=== PATIENT | female | born 1960 | race Caucasian/White ===

== ENCOUNTER 2022-05-01 13:35 | Outpatient (REF) | payer MEDICARE, MEDICAID, SELFPAY ==
[2022-05-01 14:12] LABS: Basophils Percent Auto 0.5 % (0.0-3.0); Eosinophils Percent Auto 1.2 % (0.0-7.0); Hematocrit 33.8 % (33.0-51.0); Hemoglobin* 10.6 gm/dL (12.0-16.0); Immature Granulocytes Abs Auto 0.04 K/uL (0.00-0.30); Lymphocytes Percent Auto 30.3 % (20-44); Mean Corpuscular HGB Conc 31 gm/dL (32-36); Mean Corpuscular Hemoglobin 30 pg (26-34); Mean Corpuscular Volume 96 fL (80-100); Neutrophils Percent Auto 58.1 % (42.0-72.0); Platelet Count* 194 K/uL (140-440); RDW Coefficient of Variation % 15.8 % (11.5-15.5); Red Blood Count 3.54 m/uL (4.00-5.20); White Blood Count* 4.33 K/uL (4.50-11.00)
[2022-05-01 14:16] LABS: Slide Review Reflex No
[2022-05-01 14:57] LABS: Potassium* 3.5 mmol/L (3.6-5.1)
[2022-05-01 14:59] LABS: Creatinine* 1.7 mg/dL (0.5-1.5); Estimated Glomerular Filt Rate 34 ml/min
[2022-05-01 15:00] LABS: Glucose* 157 mg/dL (60-115); Magnesium* 1.3 mg/dL (1.5-2.6); Phosphorus* 2.2 mg/dL (2.5-4.5)
== END 2022-05-01 13:36 | disposition home or self-care (01) ==
LOC: NPINS 13:35
PROVIDERS: PCP Physician Assistant Medical; Visit Provider Internal Medicine Nephrology
DX: I12.0 Hypertensive chronic kidney disease with stage 5 chronic kidney disease or end stage renal disease (principal); N18.5 Chronic kidney disease, stage 5; Z94.0 Kidney transplant status; Z13.1 Encounter for screening for diabetes mellitus
CPT/HCPCS: 80197; 82565; 82947; 83735; 84100; 84132; 85025

== ENCOUNTER 2022-05-03 21:40 | Outpatient (REF) | payer MEDICARE, MEDICAID, SELFPAY ==
[2022-05-03 22:18] LABS: Appearance Urine Clear (Clear); Bilirubin Urine Negative (Negative); Blood Urine 2+ (Negative); Color Urine Yellow (Yellow); Glucose Urine 3+ (Negative); Ketones Urine Negative (Negative); Leukocyte Esterase Urine Negative (Negative); Nitrite Urine Negative (Negative); Protein Urine 1+ (Negative); Urobilinogen Urine 0.2 (0.2-1.0)
[2022-05-03 22:41] LABS: Bacteria Urine Few; RBC Urine 0-2 (0-2); Squamous Epithelial Cell Urine Few (None-Few)
== END 2022-05-03 21:41 | disposition home or self-care (01) ==
LOC: NPINS 21:40
PROVIDERS: PCP Physician Assistant Medical
DX: M25.562 Pain in left knee (principal); M17.12 Unilateral primary osteoarthritis, left knee; R30.0 Dysuria; I10 Essential (primary) hypertension
CPT/HCPCS: 81003; 81015; 87086

== ENCOUNTER 2022-05-15 14:23 | Outpatient (REF) | payer MEDICARE, MEDICAID, SELFPAY ==
[2022-05-15 15:15] LABS: Basophils Absolute Auto 0.05 K/uL (0.00-0.30); Basophils Percent Auto 0.7 % (0.0-3.0); Eosinophils Absolute Auto 0.04 K/uL (0.00-0.50); Eosinophils Percent Auto 0.6 % (0.0-7.0); Hematocrit 34.5 % (33.0-51.0); Hemoglobin* 10.5 gm/dL (12.0-16.0); Immature Granulocytes Abs Auto 0.14 K/uL (0.00-0.30); Lymphocytes Percent Auto 17.1 % (20-44); Mean Corpuscular HGB Conc 30 gm/dL (32-36); Mean Corpuscular Hemoglobin 30 pg (26-34); Mean Corpuscular Volume 99 fL (80-100); Monocytes Percent Auto 9.5 % (0.0-11.0); Neutrophils Absolute Auto 5.02 K/uL (1.7-7.0); Neutrophils Percent Auto 70.1 % (42.0-72.0); Platelet Count* 120 K/uL (140-440); RDW Coefficient of Variation % 16.5 % (11.5-15.5); White Blood Count* 7.15 K/uL (4.50-11.00)
[2022-05-15 15:42] LABS: Potassium* 4.1 mmol/L (3.6-5.1); Slide Review Reflex No
[2022-05-15 15:45] LABS: Creatinine* 1.9 mg/dL (0.5-1.5); Estimated Glomerular Filt Rate 29 ml/min
[2022-05-15 15:46] LABS: Glucose* 146 mg/dL (60-115); Magnesium* 1.7 mg/dL (1.5-2.6); Phosphorus* 3.6 mg/dL (2.5-4.5)
== END 2022-05-15 14:24 | disposition home or self-care (01) ==
LOC: NPINS 14:23
PROVIDERS: PCP Physician Assistant Medical; Visit Provider Internal Medicine Nephrology
DX: Z94.0 Kidney transplant status (principal); R35.0 Frequency of micturition; I49.9 Cardiac arrhythmia, unspecified; R30.0 Dysuria; Z13.1 Encounter for screening for diabetes mellitus
CPT/HCPCS: 82565; 82947; 83735; 84100; 84132; 85025

== ENCOUNTER 2022-05-25 12:11 | Emergency (ER) | payer MEDICARE, MEDICAID, SELFPAY ==
[2022-05-25 12:25] VITALS: BP 140/75; PULSE 97; RESP 20; TEMP 36.4; O2SAT 97; BMI 35.1
--- NOTE | 2022-05-25 12:45 | CRLHL7_ITS ---
For Patients: As a result of the Century Cures Act, medical imaging exams and procedure reports are released immediately into your electronic medical record. You may view this report before your referring provider. If you have questions, please contact your health care provider. INDICATION: LLE SWELLING TECHNIQUE: Ultrasound venous duplex left lower extremity. COMPARISON: None. FINDINGS: The left common femoral, superficial femoral, deep femoral, popliteal, posterior tibial, and greater saphenous veins are fully compressible normal waveforms. The contralateral right common femoral vein is also compressible with normal waveform. No masses evident. IMPRESSION: Normal ultrasound of the left lower extremity veins. Dictated by: Geraldo Hernandez MD @ 05/25/2022 13:22:39 (Electronically Signed)
--- NOTE | 2022-05-25 12:45 | ED.GENADULT ---
HPI - General Adult General Chief complaint: Lower Extremity Swelling Stated complaint: 7 weeks post kidney transplant, left leg swelling Time Seen by Provider: 05/25/22 12:21 History of Present Illness HPI narrative: This 61-year-old female comes in with swelling of her left lower extremity. She had a kidney transplant 7 weeks ago. The new kidney is placed in her left abdomen. She states that she had bilateral lower extremity swelling after the transplant and was on diuretics temporarily to correct that problem. She now has mild pitting edema in the right lower extremity with significantly more swelling of the left lower extremity. She does not report any pain or injury event. She contacted her transplant center and was encouraged to come here to rule out a blood clot in the left lower extremity. She arrives with normal vital signs and does not have any shortness of breath or chest pain. Related Data Home Medications Medication Instructions Recorded Confirmed acyclovir 5 % topical ointment 1 applic topical 6XD 04/28/22 04/28/22 gabapentin 100 mg capsule 100 mg PO BID 04/28/22 04/28/22 tacrolimus 1 mg capsule, 2 mg PO Q12H 04/28/22 04/28/22 immediate-release acetaminophen 325 mg tablet 650 mg PO Q6H PRN 05/03/22 05/04/22 hydrocortisone 2.5 % topical cream 1 applic topical QDAY PRN 05/03/22 05/04/22 magnesium oxide 800 mg PO QDAY 05/03/22 05/04/22 multivitamin 1 tab PO QDAY 05/03/22 05/04/22 mycophenolate mofetil 250 mg 750 mg PO Q12H 05/03/22 05/04/22 capsule nebivolol 5 mg tablet 5 mg PO QDAY 05/03/22 05/04/22 pantoprazole 40 mg tablet,delayed 40 mg PO QDAY 05/03/22 05/04/22 release prednisone 5 mg tablet mg PO DAILY 05/03/22 05/04/22 rosuvastatin 5 mg tablet 5 mg PO QDAY 05/03/22 05/04/22 sennosides 8.6 mg-docusate sodium 1 tab-cap PO BID 05/03/22 05/04/22 50 mg tablet sertraline 25 mg tablet 25 mg PO DAILY 05/03/22 05/04/22 sulfamethoxazole 400 1 tab PO 3XW 05/03/22 05/04/22 mg-trimethoprim 80 mg tablet valganciclovir 450 mg tablet 900 mg PO 3XW 05/03/22 05/04/22 Previous Rx's Medication Instructions Recorded furosemide 40 mg tablet 40 mg PO BID #60 tabs 05/25/22 Allergies Allergy/AdvReac Type Severity Reaction Status Date / Time epoetin natalia Allergy Mild Vomiting Verified 05/04/22 09:20 latex Allergy Mild Verified 05/04/22 09:20 pain med Allergy Unknown Uncoded 05/04/22 09:20 Review of Systems Status of ROS: Reports: 10 or more systems reviewed and unremarkable except as noted in History and below Narrative: Constitutional: No fevers, no weight gain or loss. Eyes: No discharge. No vision changes. HENT: No congestion, no sore throat, no ear pain. Cardiovascular: No chest pain, no palpitations. Respiratory: No shortness of breath, no wheezes, no cough. Gastrointestinal: No abdominal pain, no vomiting, no diarrhea. Genitourinary: No dysuria, no hematuria. Musculoskeletal: Normal range of motion. Swelling in the left lower extremity. Skin: No rashes, no pruritis. Neurological: No dizziness, weakness, sensory change, speech change. Endo/Heme/Allergies: No bruising or bleeding. No polydipsia. Pysch: no suicidality, no anxiety, no insomnia. All other systems reviewed and are negative. 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 Pain of foot Surgical History H/O hernia repair H/O total hysterectomy History of hysterectomy for benign disease (2001) History of kidney transplant (2007) Family History Sister COPD (chronic obstructive pulmonary disease) Social History Narrative: does not drink, does not exercise, tobacco use Smoking Status: Former smoker What tobacco products do you use: cigarettes Smoking quit date/years: >15 years ago Do you use any of these nicotine containing products: None Second hand tobacco smoke exposure: No How often do you have a drink containing alcohol: never How often do you have six or more drinks on one occasion: Never AUDIT-C Alcohol total score: 0 Non-prescribed substance use: denies use Exam Narrative: Exam Narrative: Constitutional: Well-developed, well-nourished, no acute distress. HEENT: Normocephalic, atraumatic. Neck: Normal range of motion. Nontender. Supple. Heart: Regular. No murmurs. Normal rate. Intact distal pulses. Lungs: Clear to auscultation. No chest discomfort. No wheezes, rhonchi, or rales. Abdomen: Normal bowel sounds. Nontender. No rebound tenderness. Genitalia: Deferred. Back: No midline tenderness. Normal range of motion. Extremities: Normal range of motion. No injury. Bilateral lower extremity edema, left significantly greater than right. Skin: Intact. No rash. Warm. No erythema or pallor. Neurologic: No altered sensation. No weakness. Alert and oriented. Psychiatric: No suicidality. No anxiety or depression. No insomnia. Nursing notes and vitals signs are reviewed. Const: Vital Signs, click to edit/add: Vital Signs - 24 hr 05/25/22 12:25 Temperature 97.6 F Pulse Rate [Right Pulse Oximeter] 97 Respiratory Rate 20 Blood Pressure [Ri ght Upper Arm] 140/75 H Pulse Oximetry 97 Oxygen Delivery Me thod Room Air Course Vital Signs Vital signs: Initial Vital Signs Temperature 97.6 F 05/25/22 12:25 Temperature Source Temporal Artery Scan 05/25/22 12:25 Pulse Rate 97 05/25/22 12:25 Respiratory Rate 20 05/25/22 12:25 Blood Pressure 140/75 H 05/25/22 12:25 Blood Pressure Mean 96 05/25/22 12:25 Blood Pressure Position Semi-Fowlers 05/25/22 12:25 Pulse Oximetry 97 05/25/22 12:25 Oxygen Delivery Method 05/25/22 12:25 Vital Signs Temperature 97.6 F 05/25/22 12:25 Pulse Rate 97 05/25/22 12:25 Respiratory Rate 20 05/25/22 12:25 Blood Pressure 140/75 H 05/25/22 12:25 Pulse Oximetry 97 05/25/22 12:25 Oxygen Delivery Method 05/25/22 12:25 Temperature 97.6 F 05/25/22 12:25 Pulse Rate 97 05/25/22 12:25 Respiratory Rate 20 05/25/22 12:25 Blood Pressure 140/75 H 05/25/22 12:25 Pulse Oximetry 97 05/25/22 12:25 Oxygen Delivery Method 05/25/22 12:25 Medical Decision Making MDM Narrative Medical decision making narrative: This patient comes in with significant swelling of her left lower extremity. She contacted her automatic maintainer who recommended she come in here to rule out a blood clot. An ultrasound of the left lower extremity shows no such finding. I did speak with the patient's primary physician, Dr. Tony Rubalcava, who recommended that she take 80 mg of Lasix daily and follow-up with him. Imaging Data US LLE: Radiologist's impression: Normal ultrasound of the left lower extremity veins. Discharge Plan Discharge Clinical Impression: Pedal edema, Renal transplant recipient Patient Disposition: Home, Self-Care Condition: Stable Additional Instructions: Take Lasix 80 mg daily and follow-up with Dr. Rubalcava. Prescriptions: New furosemide 40 mg tablet 40 mg PO BID Qty: 60 2RF No Action acyclovir 5 % ointment 1 applic topical 6XD tacrolimus 1 mg capsule 2 mg PO Q12H gabapentin 100 mg capsule 100 mg PO BID sertraline 25 mg tablet 25 mg PO DAILY Rx Instructions: for depression sennosides-docusate sodium 8.6-50 mg tablet 1 tab-cap PO BID Label Comments: Take 1-2 tablets by mouth two times a day. hydrocortisone 2.5 % cream 1 applic topical QDAY PRN magnesium oxide 400 mg magnesium tablet 800 mg PO QDAY multivitamin Tablet 1 tab PO QDAY nebivolol 5 mg tablet 5 mg PO QDAY pantoprazole 40 mg tablet,delayed release (DR/EC) 40 mg PO QDAY rosuvastatin 5 mg tablet 5 mg PO QDAY sulfamethoxazole-trimethoprim 400-80 mg tablet 1 tab PO 3XW valganciclovir 450 mg tablet 900 mg PO 3XW mycophenolate mofetil 250 mg capsule 750 mg PO Q12H prednisone 5 mg tablet PO DAILY acetaminophen 325 mg tablet 650 mg PO Q6H PRN Follow Up/Referrals: Elena Morataya PA-C [Primary Care Provider] - Stand Alone Forms: [employer] Info Instructions
--- OUTSIDE RECORDS SUMMARY | 2022-05-25 12:54 | XMS_ITS | Encounter Summary ---
:1960 Author Organization [place] Address [facility] [place] [address] Care Team Providers Name Role Phone Steve Martínez DO Primary Care Provider Reason for Visit Reason Comments Toe Injury Encounter Details Date Type Department Care Team Description 01/09/2021 Emergency [facility] Bill Etienne T oenail avulsion, [facility] Emergency Dep t initial encounter [address] [facility] [id number] [address] [facility] [phone] [place], [place] [address] (Wo rk) Social History Tobacco Use Types Packs/Day Years Used Date Current Every Day Smoker 1 Alcohol Use Standard Drinks/Week Comments Yes 0 (1 standard drink = 0.6 oz pure alcoho l) once in a blue mir 05/09/13 Alcohol Habits Answer Date Recorded How often do you have a drink containing Not asked alcohol? How many drinks containing alcohol do you Not asked have on a typical day when you are drinking? How often do you have six or more drinks Not asked on one occasion? Comment: once in a blue mir 05/09/13 05/09/2013 Sex Assigned at Date Recorded Not on file documented as of 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 Last Filed Vital Signs Vital Sign Reading Time Taken Comments Blood Pressure 193/111 01/09/2021 4:56 AM CDT Pulse 72 01/09/2021 4:56 AM CDT Temperature 36.9 ??C (98.4 ??F) 01/09/2021 4:56 AM CDT Respiratory Rate 20 01/09/2021 4:56 AM CDT Oxygen Saturation 98% 01/09/2021 4:56 AM CDT Inhaled Oxygen Concentration - - Weight - - Height - - Body Mass Index - - documented in 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 Discharge Instructions AttachmentsThe following attachments cannot be sent through Care Everywhere. Fingernail or Toenail, Detached (Barbadian)documented in 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 ED Notes Valeriano Jameson RN - 01/09/2021 4:56 AM CDT Pt states injury to 1st digit RLE tonight after dropping luggage on digit when opening car door. ABCs intact GCS 15 Bleeding controlled in triage Bill Etienne MD - 01/09/2021 4:51 AM CDT History Chief Complaint: Toe Injury HPI Shabnam Wray is a 60 year old anticoagulated (warfarin) female with history of hypertension, hyperlipidemia, and CKD who presents with a toe injury. The patient reports that a suitcase fell out of the back of her car and landed on her right great toe this morning. She is still in pain here in the ED. Her toe nail completely peeled back after this occurred. The injury did not bleed much en routeto the ED. Review of Systems Musculoskeletal: Positive for arthralgias and joint swelling. All other systems reviewed and are negative. Allergies: Epoetin Latex Medications: Warfarin Amlodipine Renvela Rosuvastatin Gabapentin Bystolic Past Medical History: Hypertension Kidney disease UTI recurrent End stage renal failure Major depression CKD Hyperlipidemia Renal transplant Past Surgical History: Creation of arteriovenous fistula with transposition Ureteral stent placement Hysterectomy Hernia repair Retrograde pyelogram Cystourethroscopy Exchange ureteral stent Retrograde pyelogram Organ transplant Insertion neuro stimulator electrode peripheral Family History: No known family history Social History: Arrives via car Unaccompanied in ED Physical Exam Patient Vitals for the past 24 hrs: BP Temp Temp src Pulse Resp SpO2 01/09/21 0456 (!) 193/111 98.4 ??F (36.9 ??C) Oral 72 20 98 % Physical Exam Constitutional: Alert, attentive CV: 2+ DP and PT pulses, brisk distal cap refill MSK: Apparent partial avulsion of distal aspect of right great toenail, now in an anatomical position. The distal aspect of the nail and is perhaps 2 to 3 mm elevated from its normal position, with some dried blood surrounding the distal lateral aspects of the nail, but proximally it is seated well into the nail fold and appears secure. Swelling to the surrounding toe but no obvious deformity Neurological: 5/5 strength to the DF, PF, EHL and FHL motor functions; sensation intact to the DP, SP, T, S and S distributions Skin: Skin is warm and dry. Emergency Department Course Imaging: XR Toe Right G/E 2 Views No fracture or dislocation. Accessory ossicle at the navicular and near the base of the right fifth metatarsal. No significant soft tissue abnormality. Read per radiology Emergency Department Course: Reviewed: I reviewed nursing notes, vitals, past medical history and care everywhere Assessments: 0515 I obtained history and examined the patient as noted above. 0639 I rechecked the patient and explained findings. Disposition: The patient was discharged to home. Impression & Plan Medical Decision Making: This is a pleasant 60-year-old female who presents for evaluation of blunt injury to the right greattoe with apparent partial avulsion of the toenail, reduced to an anatomic position by patient. Giventhe location of the nail, its apparent secure position, and the patient being a dialysis patient whois also anticoagulated, further suturing the nail into place appears that it would cause more harm via bleeding and infection risk then good. Circumferential dressing placed to secure the nail and planto transition to less bulky bandages over the next several days. No fracture identified on x-ray. Plan primary care follow-up for recheck in 2 to 3 days return precautions for worse pain, swelling, or any other concerns. Diagnosis: ICD-10-CM 1. Toenail avulsion, initial encounter S91.209A Discharge Medications: New Prescriptions No medications on file Scribe Disclosure: I, Kael Jason, am serving as a scribe at 5:17 AM on 01/09/2021 to document services personally performed by Bill Etienne MD based on my observations and the provider's statements to me. Bill Etienne MD 01/09/21 0736 documented in 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 Plan of Treatment Not on filedocumented as of 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 Procedures Procedure Name Priority Date/Time Associated Diagnosis Comme nts XR TOE RIGHT G/E 2 STAT 01/09/2021 6:15 AM Res ults for this VIEWS CDT procedure are i n the results section. documented in 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 Results XR Toe Right G/E 2 Views (01/09/2021 6:15 AM CDT) Anatomical Region Laterality Modality Foot, Right Foot Right Digital Radiography Specimen (Source) Anatomical Collection Method Collection Time Re ceived Time Location / / Volume Laterality 01/09/2021 6:10 AM CDT Impressions 01/09/2021 6:31 AM CDT IMPRESSION: No fracture or dislocation. Accessory ossicle at the navicular and near the base of the right fifth metatarsal. No significant soft tissue abnormality. Narrative 01/09/2021 6:31 AM CDT EXAM: XR TOE RIGHT G/E 2 VIEWS LOCATION: [facility] DATE/TIME: 01/09/2021 6:10 AM INDICATION: Evaluate for fracture or dis location at the patient received caisson the foot. COMPARISON: None. Procedure Note Nnamdi Corbin MD - 01/09/2021Formatt ing of this note might be different from the original. EXAM: XR TOE RIGHT G/E 2 VIEWS LOCATION: [facility] DATE/TIME: 01/09/2021 6:10 AM INDICATION: Evaluate for fracture or dis location at the patient received caisson the foot. COMPARISON: None. IMPRESSION: No fracture or dislocation. Accessory ossicle at the navicular and near the base of the right fifth metatarsal. No significant soft tissue abnormality. Bill Etienne MD IMG DIAGNOSTIC IMAGING ORDER JS documented in 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 Visit Diagnoses Diagnosis Toenail avulsion, initial encounter documented in 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 Care Teams Briefcase Sewer Relationship Specialty Start Date End Date Steve Martínez DO PCP - General Nephrology 05/09/13 [facility] [address] [place] [address] documented as of 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
--- OUTSIDE RECORDS SUMMARY | 2022-05-25 12:54 | XMS_ITS | Encounter Summary ---
:1960 Author Organization [facility] Address [address] [place] [address] Phone Care Team Providers Name Role Phone Unavailable Primary Care Provider Unavailable Encounter Details Date Type Department Care Team Description 05/23/2021 Treatment [facility] Provider, [facility] [address] [place] [phone] Social History Tobacco Use Types Packs/Day Years Used Date Smoking Tobacco: Never Assessed Sex Assigned at Date Recorded Not on file documented as of 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 Miscellaneous Notes Dialysis Note - Aps External Provider - 05/23/2021 1:12 PM EDT Document Name: Dialysis Enrollment Patient Name: Shabnam Wray Chart #: [id number] Date: May 23, 2021 Patient Type: ESRD Modality: Hemodialysis Meter Readers Supervisor: Vaibhav Laughlin MD Location: [facility] Initial Access Initial Modality: Hemodialysis Evelia Lucio [ Signed And locked electronically On 05/23/2021 at 01:12:22 PM ] Transcribed: Evelia Valdes ( 05/23/2021 ) documented in 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 Plan of Treatment Not on filedocumented as of 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 Visit Diagnoses Not on filedocumented in 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
--- OUTSIDE RECORDS SUMMARY | 2022-05-25 12:54 | XMS_ITS | Clinical Summary ---
:1960 Author Organization [facility] Address [address] [place] [id number] Care Team Providers Name Role Phone [place]Steve davies DO Primary Care Provider Allergies Active Allergy Reactions Severity Noted Date Comments Epoetin GI Disturbance Medium 11/03/2016 ERYTHROPOIETI N- vomiting ERYTHROPOIETIN- vomiting Latex Other (See Comments) Medium 03/26/2012 Eczema Eczema Other Drug Allergy 01/09/2021 Unknown p ain medication (See Comments) Medications No known medications Social History Tobacco Use Types Packs/Day Years [...] Assigned at Date Recorded Not on file Last Filed Vital Signs Vital Sign Reading Time Taken Comments Blood Pressure 193/111 01/09/2021 4:56 AM CDT Pulse 72 01/09/2021 4:56 AM CDT Temperature 36.9 ??C (98.4 ??F) 01/09/2021 4:56 AM CDT Respiratory Rate 20 01/09/2021 4:56 AM CDT Oxygen Saturation 98% 01/09/2021 4:56 AM CDT Inhaled Oxygen Concentration - - Weight 105.2 kg (232 lb) 12/04/2014 5:31 PM CDT Height - - Body Mass Index - - Plan of Treatment Health Maintenance Due Date Last Done Comments ADVANCE CARE PLANNING 1960 ANNUAL REVIEW OF HM ORDERS 1960 CT COLONOGRAPHY 1959 FIT-DNA (Cologuard) 1960 FIT 1960 FLEX SIG 1960 MAMMO SCREENING 1960 COLONOSCOPY 1969 COLORECTAL CANCER SCREENING 1969 HIV SCREENING 1974 HEPATITIS C SCREENING 1977 MEDICARE ANNUAL WELLNESS 1977 VISIT PAP 1980 DTAP/TDAP/TD IMMUNIZATION 1984 (1 - Tdap) LUNG CANCER SCREENING 2009 ZOSTER IMMUNIZATION (1 of 2009 2) LIPID 02/23/2014 02/23/2009 Pneumococcal Vaccine: 06/21/2018 06/21/2017, 06/05/2014 Pediatrics (0 to 5 Years) and At-Risk Patients (6 to 64 Years) (2 - PPSV23 or PCV20) COVID-19 Vaccine (3 - 12/03/2020 10/08/2020, 09/10/2020 Booster for Moderna series) PHQ-2 (once per calendar 08/20/2021 year) INFLUENZA VACCINE (#1) 2022 05/31/2019, 05/15/2018, 06/15/2017, Additional history exists HEPATITIS B IMMUNIZATION Aged Out 07/03/2018, 02/27/2018, No longer eligible 01/28/2018, Additional based on patient's age history exists to complete this topic IPV IMMUNIZATION Aged Out No longer eligi ble based on patient 's age to complete this topic MENINGITIS IMMUNIZATION Aged Out No longe r eligible based on patient 's age to complete this topic Insurance Payer Benefit Plan / Subscriber ID Effective Phone Address T ype Group Dates MEDICARE MEDICARE [id number] 2004-Prese [phone] ATTN JUD MS Medicare nt 40 [address] [place] [address] [place] [id number] 2014-Prese [phone] [address] Medicaid nt [address] [place] [address] Care Teams Police Communications Dispatcher Relationship Specialty Start Date End Date Steve Martínez DO PCP - General Nephrology 05/09/13 [facility] [address] [place] [address]
--- OUTSIDE RECORDS SUMMARY | 2022-05-25 12:54 | XMS_ITS | Encounter Summary ---
:1960 Author Organization [place] Address On license of [facility] [place] [address] Care Team Providers Name Role Phone Steve Martínez DO Primary Care Provider Reason for Visit Reason Comments Back Pain Encounter Details Date Type Department Care Team Description 12/04/2014 Emergency [facility] Deo Church serum creatinine; [facility] Emergency MD Roselyn History of renal transplant; Department [address] [facility] Uncontrolled hypertension [address] [place] [id number] [phone] (Wo rk) Social History Tobacco Use Types [...] Sign Reading Time Taken Comments Blood Pressure 177/103 12/04/2014 9:06 PM CDT Pulse 69 12/04/2014 5:31 PM CDT Temperature 36.7 ??C (98 ??F) 12/04/2014 9:06 PM CDT Respiratory Rate 19 12/04/2014 9:06 PM CDT Oxygen Saturation 97% 12/04/2014 9:06 PM CDT Inhaled Oxygen Concentration - - Weight 105.2 kg (232 lb) 12/04/2014 5:31 PM CDT Height - - Body Mass Index - - documented in 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 Discharge Instructions Discharge InstructionsGiDeo peña MD - 12/04/2014 7:58 PM CDT Follow up with your transplant doctor at [facility]. Return for fevers or problems with the nephrostomy tube. documented in 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 ED Notes Deo Church MD - 12/04/2014 6:05 PM CDT Images from the original note were not included. [facility] Emergency Department [address] [place] [address] Room 04 History Chief Complaint Patient presents with ??? Back Pain HPI Shabnam Wray is a 54 year old female with a history of hypertension and kidney disease status post kidney transplant in 2007 who presents from [facility] for a high creatinine level, in needof unclamping of her nephrostomy tube. In July 2014, patient did have a ureteral obstruction, which required ureteral stent and percutaneous nephrostomy tube placement. Patient states that the etiology of the original obstruction is not known. Patient had the nephrostomy tube placed at [place] approximately 2 weeks ago. Her ureteral stent was removed on Sunday (4 days ago). She also complains of back pain and a headache. No hematuria. No fever or chills. She denies abdominal pain. Creatinine level was taken this morning at [facility]. Past Medical History Diagnosis Date ??? Kidney disease s/p transplant, previously on peritoneal dialysis ??? Hypertension Past Surgical History Procedure Laterality Date ??? Kidney transplant surgery 2007 No family history on file. History Substance Use Topics ??? Smoking status: Current Every Day Smoker -- 1.00 packs/day ??? Smokeless tobacco: Not on file ??? Alcohol Use: Yes Comment: once in a blue mir 05/09/13 No current facility-administered medications for 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. No current outpatient prescriptions on file. Cellcept Prograf Coreg 12.5 BID Gabapentin Unknown cholesterol med Antidepressant 10 mg Unsure of exact medications or doses. No Known Allergies I have reviewed the Medications, Allergies, Past Medical and Surgical History, and Social History inthe Epic system. Review of Systems Constitutional: Negative for fever and chills. HENT: Negative for trouble swallowing. Eyes: Negative for visual disturbance. Respiratory: Negative for cough, shortness of breath and wheezing. Cardiovascular: Negative for chest pain and leg swelling. Gastrointestinal: Negative for nausea, vomiting, abdominal pain, diarrhea and constipation. Genitourinary: Negative for dysuria. Musculoskeletal: Positive for back pain. Skin: Negative for rash. Neurological: Positive for headaches. Negative for speech difficulty, weakness, light-headedness andnumbness. Hematological: Negative for adenopathy. Psychiatric/Behavioral: Negative for confusion. Physical Exam BP: 180/100 mmHg Pulse: 69 Temp: 98.2 ??F (36.8 ??C) Resp: 19 Weight: 105.235 kg (232 lb) SpO2: 98 % Physical Exam Constitutional: She is oriented to person, place, and time. She appears well- developed and well-nourished. No distress. HENT: Head: Normocephalic and atraumatic. Right Ear: External ear normal. Left Ear: External ear normal. Nose: Nose normal. Mouth/Throat: Oropharynx is clear and moist. Eyes: EOM are normal. Pupils are equal, round, and reactive to light. Neck: Normal range of motion. Neck supple. No JVD present. Cardiovascular: Normal rate, regular rhythm and normal heart sounds. Exam reveals no friction rub. No murmur heard. Pulmonary/Chest: Effort normal and breath sounds normal. She has no wheezes. She has no rales. Abdominal: Soft. Bowel sounds are normal. There is no tenderness. There is no rebound and no guarding. Musculoskeletal: She exhibits no edema or tenderness. Neurological: She is alert and oriented to person, place, and time. She has normal reflexes. She displays normal reflexes. No cranial nerve deficit. She exhibits normal muscle tone. Coordination normal. Skin: Skin is warm and dry. No rash noted. Psychiatric: She has a normal mood and affect. Her behavior is normal. Nursing note and vitals reviewed. ED Course Procedures 6:05 PM The patient was seen and examined by Dr. Church in Room 04. Labs/Imaging Results for orders placed during the hospital encounter of 12/04/14 (from the past 24 hour(s)) CBC WITH PLATELETS DIFFERENTIAL Result Value Ref Range WBC 6.1 4.0 - 11.0 10e9/L RBC Count 3.97 3.8 - 5.2 10e12/L Hemoglobin 10.7 (*) 11.7 - 15.7 g/dL Hematocrit 34.4 (*) 35.0 - 47.0 % MCV 87 78 - 100 fl MCH 27.0 26.5 - 33.0 pg MCHC 31.1 (*) 31.5 - 36.5 g/dL RDW 15.0 10.0 - 15.0 % Platelet Count 182 150 - 450 10e9/L Diff Method Automated Method % Neutrophils 72.6 % Lymphocytes 20.2 % Monocytes 5.7 % Eosinophils 1.1 % Basophils 0.2 % Immature Granulocytes 0.2 Absolute Neutrophil 4.5 1.6 - 8.3 10e9/L Absolute Lymphocytes 1.2 0.8 - 5.3 10e9/L Absolute Monoctyes 0.4 0.0 - 1.3 10e9/L Absolute Eosinophils 0.1 0.0 - 0.7 10e9/L Absolute Basophils 0.0 0.0 - 0.2 10e9/L Abs Immature Granulocytes 0.0 0 - 0.4 10e9/L COMPREHENSIVE METABOLIC PANEL Result Value Ref Range Sodium 139 133 - 144 mmol/L Potassium 4.3 3.4 - 5.3 mmol/L Chloride 110 (*) 94 - 109 mmol/L Carbon Dioxide 22 20 - 32 mmol/L Anion Gap 8 3 - 14 mmol/L Glucose 162 (*) 70 - 99 mg/dL Urea Nitrogen 33 (*) 7 - 30 mg/dL Creatinine 2.46 (*) 0.52 - 1.04 mg/dL GFR Estimate 20 (*) >60 mL/min/1.7m2 GFR Estimate If Black 25 (*) >60 mL/min/1.7m2 Calcium 8.8 8.5 - 10.1 mg/dL Bilirubin Total 0.4 0.2 - 1.3 mg/dL Albumin 3.3 (*) 3.4 - 5.0 g/dL Protein Total 6.4 (*) 6.8 - 8.8 g/dL Alkaline Phosphatase 102 40 - 150 U/L ALT 14 0 - 50 U/L AST 12 0 - 45 U/L MAGNESIUM Result Value Ref Range Magnesium 1.8 1.6 - 2.3 mg/dL PHOSPHORUS Result Value Ref Range Phosphorus 2.7 2.5 - 4.5 mg/dL ROUTINE UA WITH MICROSCOPIC Result Value Ref Range Color Urine Yellow Appearance Urine Clear Glucose Urine Negative NEG mg/dL Bilirubin Urine Negative NEG Ketones Urine Negative NEG mg/dL Specific [place] Urine 1.011 1.003 - 1.035 Blood Urine Trace (*) NEG pH Urine 5.5 5.0 - 7.0 pH Protein Albumin Urine 30 (*) NEG mg/dL Urobilinogen mg/dL Normal 0.0 - 2.0 mg/dL Nitrite Urine Negative NEG Leukocyte Esterase Urine Trace (*) NEG Source Midstream Urine WBC Urine 7 (*) 0 - 2 /HPF RBC Urine 13 (*) 0 - 2 /HPF Squamous Epithelial /HPF Urine 4 (*) 0 - 1 /HPF URINE CULTURE AEROBIC BACTERIAL Result Value Ref Range Specimen Description Midstream Urine Special Requests Specimen received in preservative Culture Micro Pending Micro Report Status Pending Renal transplant US: Stent in renal pelvis. Final results pending. Assessments & Plan (with Medical Decision Making) Impression: Middle aged female with longstanding poorly controlled hypertension. Renal transplant several years ago at [facility]. She has recently developed rising creatinine and was found to have ureteral obstruction. She had a stent in place that was removed last week. She has a percutaneous nephrostomy whichhas not been used since removal of the stent. Over the course of the week her creatinine has been rising. She presents today at recommendation of her authorization manager at [place] for uncapping of the nephrostomy tube due to presumed recurrent obstruction and recurrent rising creatinine. She has no sign of infection. Immune suppressive medication levels were sent, unfortunately she is unsure of the medications or doses. Transplant renal US today preliminarily is suggestive of mild hydronephrosis and good stent position. Vascular indices are pending. She has follow up scheduled Sunday at [place]. I have reviewed the nursing notes. I have reviewed the findings, diagnosis, plan and need for follow up with the patient. New Prescriptions No medications on file Final diagnoses: Elevated serum creatinine History of renal transplant [place], am serving as a trained director medical writing to document services personally performed by Deo Church MD, based on the provider's statements to me. I, Deo Church MD, was physically present and have reviewed and verified the accuracy of this note documented by Nora Loo. 12/04/2014 [facility], [place], EMERGENCY DEPARTMENT Deo Church MD 12/04/[id number] Daxa Santana RN - 12/04/2014 5:39 PM CDT Bed: ED04 Expected date: 12/04/14 Expected time: Means of arrival: Comments: Shabnam Wray Kidney tx pt from [place] Coming to have nephrostomy tube unclamped and attached to drainage due to changes in labs Fabricio Villaseñor RN - 12/04/2014 5:35 PM CDT Triage Assessment: Shabnam Wray is here to be evaluated for: Increasing creatinine in the setting of kidney transplant (2007) and recent ureteral stent removal. BP 180/100 Pulse 69 Temp(Src) 98.2 ??F (36.8 ??C) (Oral) Resp 19 Wt 105.235 kg (232 lb) SpO2 98% Fabricio Villaseñor documented in 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 Plan of Treatment Not on filedocumented as of 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 Procedures Procedure Name Priority Date/Time Associated Comments Diagnosis US RENAL TRANSPLANT STAT 12/04/2014 7:12 PM Re sults for this WITH DOPPLER CDT procedure are i n the results section. ROUTINE UA WITH STAT 12/04/2014 6:36 PM Result s for this MICROSCOPIC CDT procedure are i n the results section. URINE CULTURE Routine 12/04/2014 6:36 PM Elevated serum Result s for this CDT creatinine procedure are i n the results section. CBC WITH PLATELETS & STAT 12/04/2014 6:30 PM R esults for this DIFFERENTIAL CDT procedure are i n the results section. TACROLIMUS BY TANDEM Routine 12/04/2014 6:30 PM Elevated serum Results for this MASS SPECTROMETRY CDT creatinine procedure are in the results section. PHOSPHORUS STAT 12/04/2014 6:30 PM Results f or this CDT procedure are i n the results section. MAGNESIUM STAT 12/04/2014 6:30 PM Results f or this CDT procedure are i n the results section. CYCLOSPORINE BY TANDEM STAT 12/04/2014 6:30 PM Elevated ser um Results for this MASS SPECTROMETRY CDT creatinine procedure are in the results section. COMPREHENSIVE STAT 12/04/2014 6:30 PM Results for this METABOLIC PANEL CDT procedure ar e in the results section. documented in 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 Results US Renal Transplant (12/04/2014 7:12 PM CDT) Anatomical Region Laterality Modality Abdomen/Pelvis Ultrasound Specimen (Source) Anatomical Location Collection Method / Collectio n Time Received Time / Laterality Volume Impressions 12/04/2014 9:09 PM CDT IMPRESSION: 1. There is significant hydronephrosis i n the transplanted kidney with the nephrostomy tube in place. 2. Normal Doppler examination of right l ower quadrant transplant kidney. I have personally reviewed the examinati on and initial interpretation and I agree with the findings. SHEELA LANDA MD Narrative 12/04/2014 9:09 PM CDT Examination: US RENAL TRANSPLANT, 12/04/2014 7:12 PM Comparison: None available History: Rising creatinine. Assess flow, hydro, nephrostomy position, FINDINGS: The right lower quadrant trans plant kidney is of normal echogenicity. There is no perinephric fl uid collection. The transplant kidney measures 14 x 7.7 x 7.6 Cm in [facility]. ??Doppler examination demonstrates normal, uniform parenchymal vascular flow. There is antegrade flow within the upper , middle, and lower arcuate arteries. Resistive indices are listed b elow: Lower arcuate artery: 0.68 Middle arcuate artery: 0.62 Upper arcuate artery: 0.69. Doppler examination of the renal artery demonstrated the following: There is antegrade flow in the renal art lily Velocity in renal artery at hilum: 62 cm /sec with resistive index of 0.76. Velocity at renal artery anastomosis: 16 9.9 cm/sec with a resistive index of 0.75. Doppler examination of the renal vein de monstrated the following: There is antegrade flow in the renal vei n. Velocity in renal vein at hilum: 18.9 cm /sec. Velocity at renal vein anastomosis: 44 c m/sec. There is antegrade flow in the iliac art lily above and below the level of the anastomosis with velocities measu ring 149.6 cm/sec and 183.3 cm/sec, respectively. There is antegrade flow in the iliac vei n above and below the level of the anastomosis. Procedure Note Sheela Landa MD - 12/04/2014F ormatting of this note might be different from the original. Examination: RENAL TRANSPLANT, 015 7:12 PM Comparison: None available History: Rising creatinine. Assess flow, hydro, nephrostomy position, FINDINGS: The right lower quadrant trans plant kidney is of normal echogenicity. There is no perinephric fl uid collection. The transplant kidney measures 14 x 7.7 x 7.6 Cm in [facility]. Doppler examination demonstrates normal, uniform parenchymal vascular flow. There is antegrade flow within the upper , middle, and lower arcuate arteries. Resistive indices are listed b elow: Lower arcuate artery: 0.68 Middle arcuate artery: 0.62 Upper arcuate artery: 0.69. Doppler examination of the renal artery demonstrated the following: There is antegrade flow in the renal art lily Velocity in renal artery at hilum: 62 cm /sec with resistive index of 0.76. Velocity at renal artery anastomosis: 16 9.9 cm/sec with a resistive index of 0.75. Doppler examination of the renal vein de monstrated the following: There is antegrade flow in the renal vei n. Velocity in renal vein at hilum: 18.9 cm /sec. Velocity at renal vein anastomosis: 44 c m/sec. There is antegrade flow in the iliac art lily above and below the level of the anastomosis with velocities measu ring 149.6 cm/sec and 183.3 cm/sec, respectively. There is antegrade flow in the iliac vei n above and below the level of the anastomosis. IMPRESSION IMPRESSION: 1. There is significant hydronephrosis i n the transplanted kidney with the nephrostomy tube in place. 2. Normal Doppler examination of right l ower quadrant transplant kidney. I have personally reviewed the examinati on and initial interpretation and I agree with the findings. SHEELA LANDA MD Deo Church MD IMG US ORDERABLES (ABNORMAL) Urine Culture Aerobic Bacterial (12/04/2014 6:36 PM CDT) Component Value Ref Test Analysis Performed At [facility] [place] Range Method Time Signature Specimen Midstream Urine [facility] Description [facility] Special Specimen received [facility] O F Requests in preservative [facility] Culture Micro 10,000 to 50,000 colonies/mL Gram positive bacilli resembling diphtheroids [facility] Susceptibility testing not routinely done [facility] (A) [facility] Micro Report FINAL 12/06/[address] [facility] Specimen Anatomical Collection Method Collection Time Receive d Time (Source) Location / / Volume Laterality Urine specimen URINE SPECIMEN 12/04/2014 6:36 PM 12/04 6:59 (specimen) OBTAINED BY CLEAN CDT PM CDT CATCH PROCEDURE / Unknown Deo Church MD LAB - MICRO GENERAL ORDERAB LES Performing Organization Address City/State/ZIP Code Phon e Number [facility] [address] [place] [address] [facility] [address] [place] [address] [facility] (ABNORMAL) UA with microscopic (12/04/2014 6:36 PM CDT) [facility] [place] Method Time Signature Color Urine Yellow [facility] Appearance Urine Clear [facility] Glucose Urine Negative NEG mg/dL [facility] Bilirubin Urine Negative NEG [facility] Ketones Urine Negative NEG mg/dL [facility] Specific [place] 1.011 1.003 - [facility] Urine 1.035 [facility] Blood Urine Trace (A) NEG [facility] pH Urine 5.5 5.0 - 7.0 [place] pH [facility] Protein Albumin 30 (A) NEG mg/dL [facility] Urine [facility] Urobilinogen Normal 0.0 - 2.0 [place] [facility] mg/dL mg/dL [facility] Nitrite Urine Negative NEG [facility] Leukocyte Trace (A) NEG [facility] Esterase Urine [facility] Source Midstream [facility] Urine [facility] WBC Urine 7 (H) 0 - 2 [facility] /HPF [facility] RBC Urine 13 (H) 0 - 2 [facility] /HPF [facility] Squamous 4 (H) 0 - 1 [facility] Epithelial /HPF /HPF [facility] Urine [facility] Specimen Anatomical Collection Method Collection Time Receive d Time (Source) Location / / Volume Laterality Urine specimen URINE SPECIMEN 12/04/2014 6:36 PM 12/04 6:58 (specimen) OBTAINED BY CLEAN CDT PM CDT CATCH PROCEDURE / Unknown Deo Church MD LAB - URINE ORDERABLES Performing Organization Address City/State/ZIP Code Phon e Number [facility] [address] [place] [address] [facility] Tacrolimus level (12/04/2014 6:30 PM CDT) [facility] gist Method Time Signature Tacrolimus Not Provided [facility] Last Dose [facility] Tacrolimus 10.4 5.0 - [facility] Level 15.0 ug/L [facility] Comment: Tacrolimus Reference Range Kidney Transplant Pediatric ?ug/L ?? 0-3 months post transplant ?? 10-12 ?? 3-6 months post transplant ?? 8-10 ?? 6-12 months post transplant ??6-8 ?? >12 months post transplant ?? 4-7 Adult ?? 0-6 months post transplant ?? 8-10 ?? 6-12 months post transplant ??6-8 ?? >12 months post transplant ?? 4-6 ?? >5 years post transplant ? 3-5 Heart Transplant Pediatric ?? 0-12 months post transplant ??10-15 ?? >12 months post transplant ?? 5-10 Adult ?? 0-3 months post transplant ?? 10-15 ?? 3-6 months post transplant ?? 8-12 ?? 6-12 months post transplant ??6-12 ?? >12 months post transplant ?? 6-10 Lung Transplant ?? 0-12 months post transplant ??10-15 ?? >12 months post transplant ?? 8-12 Liver Transplant Pediatric ?? 0-3 months post transplant ?? 10-15 ?? 3-6 months post transplant ?? 8-10 ?? >6 months post transplant ?6-8 Adult ?? 0-3 months post transplant ?? 10-12 ?? 3-6 months post transplant ?? 8-10 ?? >6 months post transplant ?6-8 Pancreas Transplant ?? 0-6 months post transplant ?? 8-10 ?? >6 months post transplant ?5-8 This test was developed and its perform ance characteristics determined by the [facility], ??Special Chemistry Laboratory. It has not been cleared or approved by the FDA . The laboratory is regulated under CLIA as qualified to perform high-complexity testing. This test is used for clinical purposes. It should not be regarded as investigational or for research. Specimen Anatomical Collection Method Collection Time Receive d Time (Source) Location / / Volume Laterality 12/04/2014 6:30 PM 5 6:58 CDT PM CDT Deo Church MD LAB - BLOOD ORDERABLES Performing Organization Address City/State/ZIP Code Phon e Number [facility] [address] [place] [address] [facility] (ABNORMAL) Cyclosporine (12/04/2014 6:30 PM CDT) Component Value Ref Test Analysis Performed At [facility] Range Method Time Signature Cyclosporine Not Provided [place] Last Dose OF [facility] Cyclosporine <25 50 - 400 [facility] Level Cyclosporine Reference Range ug/L O F ME Kidney Transplant MEDICAL Pediatric ?ug/L [facility] ?? 0-3 months post transplant ?? 175-[address] ?? 3-6 months post transplant ?? 150-175 ?? 6-9 months post transplant ?? 125-150 ?? 9-12 months post transplant ??100-125 ?? >12 months post transplant ?? 75-100 Adult ?? 0-3 months post transplant ?? 175-200 ?? 3-6 months post transplant ?? 150-200 ?? 6-12 months post transplant ??125-150 ?? >12 months post transplant ?? 75-100 Heart Transplant Pediatric ?? 0-12 months post transplant ??200-250 ?? >12 months post transplant ?? 100-125 ?? EBV PCR >1000 copies/mL ?80-100 Adult ?? 0-3 months post transplant ?? 150-250 ?? 3-6 months post transplant ?? 125-225 ?? 6-12 months post transplant ??100-200 ?? >12 months post transplant ?? 50-150 Heart-Lung Block ? 200-250 Lung Transplant ?? 0-12 months post transplant ??175-225 ?? >12 months post transplant ?? 125-175 Liver Transplant ?? 0-6 months post transplant ?? 150-200 ?? >6 months post transplant ?100-150 Pancreas Transplant ?? 0-6 months post transplant ?? 200-250 ?? 6-12 months post transplant ??150-200 ?? >12 months post transplant ?? 100-150 Bone Marrow Transplant ? 200-400 This test was developed and its perform ance characteristics determined by the [facility], ??Special Chemistry Laboratory. It has not been cleared or approve d by the FDA. The laboratory is regulated under CLIA as qualified to perform hig h-complexity testing. This test is used for clinical purposes. It should not be regarded as investigationa l or for research. (L) Specimen Anatomical Collection Method Collection Time Receive d Time (Source) Location / / Volume Laterality Blood specimen 12/04/2014 6:30 PM 015 6:58 (specimen) CDT PM CDT Deo Church MD LAB - BLOOD ORDERABLES Performing Organization Address City/[facility]/ZIP Code Phon e Number [address] Phosphorus (12/04/2014 6:30 PM CDT) P athologist Signature Phosphorus 2.7 2.5 - 4.5 [facility] mg/dL [facility] Specimen Anatomical Collection Method Collection Time Receive d Time (Source) Location / / Volume Laterality Blood specimen 12/04/2014 6:30 PM 015 6:57 (specimen) CDT PM CDT Deo Church MD LAB - BLOOD ORDERABLES Performing Organization Address City/[facility]/ZIP Code Phon e Number [address] Magnesium (12/04/2014 6:30 PM CDT) P athologist Signature Magnesium 1.8 1.6 - 2.3 [facility] [place] mg/dL [facility] Specimen Anatomical Collection Method Collection Time Receive d Time (Source) Location / / Volume Laterality Blood specimen 12/04/2014 6:30 PM 015 6:57 (specimen) CDT PM CDT Deo Church MD LAB - BLOOD ORDERABLES Performing Organization Address City/State/ZIP Code Phon e Number [facility] [address] [place], [place] [id number] [place] [address] (ABNORMAL) Comprehensive metabolic panel (12/04/2014 6:30 PM CDT) [facility] Method Time Signature Sodium 139 133 - 144 [facility] mmol/L [facility] Potassium 4.3 3.4 - 5.3 [facility] OF mmol/L [facility] Chloride 110 (H) 94 - 109 [facility] mmol/L [facility] Carbon Dioxide 22 20 - 32 [facility] mmol/L [facility] Anion Gap 8 3 - 14 [facility] mmol/L [facility] Glucose 162 (H) 70 - 99 [facility] OF mg/dL [facility] Urea Nitrogen 33 (H) 7 - 30 [facility] mg/dL [facility] Creatinine 2.46 (H) 0.52 - [facility] OF 1.04 mg/dL [facility] GFR Estimate 20 (L) >60 [facility] OF mL/min/1.[address] Comment: Non GFR Calc GFR Estimate If Black 25 (L) >60 mL/min/1.7m2 [facility] Comment: GFR Calc Calcium 8.8 8.5 - 10.1 mg/dL [facility] Bilirubin Total 0.4 0.2 - 1.3 mg/dL [facility] [facility] Albumin 3.3 (L) 3.4 - 5.0 g/dL [facility] Protein Total 6.4 (L) 6.8 - 8.8 g/dL [facility] Alkaline Phosphatase 102 40 - 150 U/L [facility] ALT 14 0 - 50 U/L [facility] AST 12 0 - 45 U/L [facility] Specimen Anatomical Collection Method Collection Time Receive d Time (Source) Location / / Volume Laterality Blood specimen 12/04/2014 6:30 PM 015 6:57 (specimen) CDT PM CDT Deo Church MD LAB - BLOOD ORDERABLES Performing Organization Address City/State/ZIP Code Phon e Number [facility] [address] [place] [address] [facility] (ABNORMAL) CBC with platelets differential (12/04/2014 6:30 PM CDT) [facility] gist Method Time Signature WBC 6.1 4.0 - [facility] 11.0 [facility] 10e9/L [facility] RBC Count 3.97 3.8 - 5.2 [facility] 10e12/L [facility] Hemoglobin 10.7 (L) 11.7 - [facility] 15.7 g/dL [facility] Hematocrit 34.4 (L) 35.0 - [facility] 47.0 % [facility] MCV 87 78 - 100 [facility] fl [facility] MCH 27.0 26.5 - [facility] 33.0 pg [facility] MCHC 31.1 (L) 31.5 - [facility] 36.5 g/dL [facility] RDW 15.0 10.0 - [facility] 15.0 % [facility] Platelet Count 182 150 - 450 [facility] 10e9/L [facility] Diff Method Automated [facility] % Neutrophils 72.6 % [facility] % Lymphocytes 20.2 % [facility] % Monocytes 5.7 % [facility] % Eosinophils 1.1 % [facility] % Basophils 0.2 % [facility] % Immature 0.2 % [facility] Granulocytes [facility] Absolute 4.5 1.6 - 8.3 [facility] Neutrophil 10e9/L [facility] Absolute 1.2 0.8 - 5.3 [facility] Lymphocytes 10e9/L [facility] Absolute 0.4 0.0 - 1.3 [facility] Monocytes 10e9/L [facility] Absolute 0.1 0.0 - 0.7 [facility] Eosinophils 10e9/L [facility] Absolute 0.0 0.0 - 0.2 [facility] Basophils 10e9/L [facility] Abs Immature 0.0 0 - 0.4 [facility]ITY Granulocytes 10e9/L [facility] Specimen Anatomical Collection Method Collection Time Receive d Time (Source) Location / / Volume Laterality Blood specimen 12/04/2014 6:30 PM 015 6:57 (specimen) CDT PM CDT Deo Church MD LAB - BLOOD ORDERABLES Performing Organization Address City/State/ZIP Code Phon e Number [facility] [address] [place] [address] [facility] documented in 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 Visit Diagnoses Diagnosis Elevated serum creatinine Other nonspecific findings on examinatio n of blood History of renal transplant Kidney replaced by transplant Uncontrolled hypertension Unspecified essential hypertension documented in 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 Administered Medications Inactive Administered Medications - up to 3 most recent administrations Medication Order MAR Action Action Date Dose Rate Site acetaminophen (TYLENOL) tablet 650 Given 12/04/2014 7:47 PM CDT 650 mg mg 650 mg, Oral, ONCE, On Sun12/04/14 at 1934, For 1 dose, Maximum acetaminophen dose from all sources = 75 mg/kg/day not to exceed 4 grams/day. carvedilol (COREG) tablet 12.5 mg Given 12/04/2014 8:49 PM CDT 12.5 mg 12.5 mg, Oral, ONCE, On Sun12/04/14 at 202, For 1 dose, For Adults, Hold if Heart Rate less than 60 bpm. documented in 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 Active and Recently Administered Medications Times are shown in CDT. Scheduled Medication Order 12/02/2014 12/03/2014 12/04/2014 acetaminophen (TYLENOL) tablet 650 mg (COMPLETED) 1946 (Given - Provider: Tiff Ambrose, WILMER) 650 mg, Oral, ONCE, On Sun12/04/14 at 19 34, For 1 dose, Maximum acetaminophen dose from all sources = 75 mg/kg/day not to exceed 4 grams/day. carvedilol (COREG) tablet 12.5 mg (COMPLETED) 2048 (Given - Provider: Tiff Ambrose, WILMER) 12.5 mg, Oral, ONCE, On Sun12/04/14 at 2 027, For 1 dose, For Adults, Hold if Heart Rate less than 60 bpm. documented in 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 Care Teams Scientist Electronics Relationship Specialty Start Date End Date Steve Martínez DO PCP - General Nephrology 05/09/13 [facility] [address] [place], [place] [address] documented as of 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
--- OUTSIDE RECORDS SUMMARY | 2022-05-25 12:54 | XMS_ITS | Encounter Summary ---
:1960 Author Organization [facility] Address [address] [place] [address] Phone Care Team Providers Name Role Phone Unavailable Primary Care Provider Unavailable Encounter Details Date Type Department Care Team Description 05/24/2021 Treatment [facility] Provider, [facility] [address] [place] [phone] Social History Tobacco Use Types Packs/Day Years Used Date Smoking Tobacco: Never Assessed Sex Assigned at Date Recorded Not on file documented as of 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 Miscellaneous Notes Dialysis Note - Aps External Provider - 05/24/2021 9:32 AM EDT Document Name: Dialysis Enrollment Patient Name: Shabnam Wray Chart #: [id number] Date: May 24, 2021 Patient Type: ESRD Modality: Hemodialysis Conveyor Weigher Operator: Vaibhav Laughlin MD Location: [facility] Initial Access Date Regular Chronic Dialysis Began: 06/15/2017Initial Modality: Hemodialysis Evelia Lucio [ Signed And locked electronically On 05/24/2021 at 09:32:33 AM ] Transcribed: Evelia Valdes ( 05/24/2021 ) documented in 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 Plan of Treatment Not on filedocumented as of 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 Visit Diagnoses Not on filedocumented in 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
--- OUTSIDE RECORDS SUMMARY | 2022-05-25 12:54 | XMS_ITS | Clinical Summary ---
:1960 Author Organization [facility] Facility Address [address] [place] [id number] Care Team Providers Name Role Phone Unavailable Primary Care Provider Unavailable Social History Tobacco Use Types Packs/Day Years Used Date Smoking Tobacco: Never Assessed Sex Assigned at Date Recorded Not on file Plan of Treatment Health Maintenance Due Date Last Done Comments Pneumococcal Vaccine: Pediatrics (0 1965 to 5 Years) and At-Risk Patients (6 to 64 Years) (1 - PCV) Colorectal Cancer Screening: Annual 2008 FOBT Colorectal Cancer Screenin2008 Colonoscopy Colorectal Cancer Screenin2008 Sigmoidoscopy Influenza Vaccine (#1) 2022 Hepatitis B Vaccine Aged Out No longer el igible based on patient's age to complete this topic Insurance Payer Benefit Plan / Subscriber ID Effective Dates Phone Addre ss Type Group MEDICARE MEDICARE [id number] 2004-Present [phone] [address] [place] [address]
--- OUTSIDE RECORDS SUMMARY | 2022-05-25 12:54 | XMS_ITS | Encounter Summary ---
:1960 Author Organization [place] Address [facility] [place] [address] Care Team Providers Name Role Phone Steve Martínez DO Primary Care Provider Reason for Visit Reason Comments Abnormal Labs Encounter Details Date Type Department Care Team Description 10/30/2014 - Emergency [facility] Jon Linn Ac ute renal failure (H); 10/31/2014 [facility] Emergency Hypertension Dept [facility] [address] [place], [place] [address] [employer] [phone] [place] [address] [place] [address] (Wo rk) Social History Tobacco Use Types [...] Sign Reading Time Taken Comments Blood Pressure 162/105 10/31/2014 1:00 AM CDT Pulse 71 10/30/2014 9:30 PM CDT Temperature 36.6 ??C (97.9 ??F) 10/30/2014 9:30 PM CDT Respiratory Rate 20 10/30/2014 9:30 PM CDT Oxygen Saturation 97% 10/31/2014 1:00 AM CDT Inhaled Oxygen Concentration - - Weight 95.3 kg (210 lb) 10/31/2014 12:36 AM CDT Height - - Body Mass Index - - documented in 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 ED Notes An Kinsey RN - 10/31/2014 1:09 AM CDT EMS here at this time for transport to [place]. Pt continues to have headache however denies other complaints. No acute distress noted at this time. Medications have started to bring down blood pressures.ER aware. An Kinsey RN - 10/31/2014 12:30 AM CDT Pt's father here to see her at this time. Report called to [facility]. Planning for transportation. No acute distress noted at this time. Will cont to monitor. An Kinsey RN - 10/30/2014 11:30 PM CDT Pt resting on cart. Continues to have a headache. Denies other complaints at this time. No acute distress noted. Will cont to monitor. An Kinsey RN - 10/30/2014 10:30 PM CDT Pt resting on cart. Hypertension noted on arrival to room. Pt states she has a headache which she believes is from her blood pressure. She has recently been taking care of her friend and two families members. Pt placed on driver material handler, blood pressure cuff and Sat monitor. Will cont to monitor. Jon Linn MD - 10/30/2014 10:15 PM CDT History Chief Complaint: Abnormal Labs HPI Shabnam Wray is a 54 year old female with a history of kidney transplant and HTN who presents with increased creatinine from 2.8 on 3/9/15 and 3.6 today. She believes her baseline creatinine hovers around 1.9. Currently, she complains of headache with photophobia that has been present for a few days. In the ED, her blood pressure was noted to be significantly elevated at 221/123 (normal BP 140ssystolic). The patient includes she had a flu with nausea and vomiting that resolved last week. InD2013, pt did have a ureteral obstruction, presenting with low back pain, requiring ureteralstent placement and percutaneous nephrostomy tube. Presently, she denies any complaints of back pain or abdominal pain. Dr. Martínez with [place] is her PCP. She continues on anti- rejection medications (see below), and is s/p transplant in 2007. She denies fever, vision changes, facial droop, slurred speech, chest pain, shortness of breath, abdominal pain, nausea, vomiting, diarrhea, constipation, bloody stool, flank pain, dysuria, hematuria, or new weakness/numbness. Allergies: The patient has no known drug allergies. Medications: Coreg Prograf Simvastatin Cellcept Prednisone Gabapentin Past Medical History: Kidney disease HTN Peripheral neuropathy Past Surgical History: Kidney transplant surgery Hysterectomy Family History: No past pertinent family history. Social History: Marital Status: Single The patient is a current everyday smoker (1 PPD). The patient is positive for alcohol use. Review of Systems Constitutional: Negative for fever. Positive for up-trending Cr Eyes: Negative for visual disturbance. Gastrointestinal: Negative for nausea, vomiting, abdominal pain, diarrhea, constipation and blood instool. Genitourinary: Negative for dysuria, hematuria and flank pain. Neurological: Positive for headaches. Negative for facial asymmetry, speech difficulty, weakness andnumbness. All other systems reviewed and are negative. Physical Exam First Vitals: BP: 221/123 mmHg Pulse: 71 Temp: 97.9 ??F (36.6 ??C) Resp: 20 SpO2: 96 % Physical Exam General: Well-nourished Speaking in full sentences Smiling, laughing on gurney Eyes: Conjunctiva without injection or scleral icterus Pupils 3 mm bilaterally, reactive to light and accomodation ENT: Moist mucous membranes Posterior oropharynx clear without erythema or exudate Neck: Supple with full ROM Resp: Lungs CTAB No crackles, wheezing or audible rubs Good air movement CV: Normal rate, regular rhythm S1 and S2 present No murmur, gallop or rub GI: BS present Abdomen soft without distention Non-tender to light and deep palpation throughout No guarding or rebound tenderness No overlying skin changes Skin: Warm, dry, well perfused No rashes or open wounds on exposed skin MSK: Moves all extremities No focal deformities or swelling Neuro: Alert Answers questions appropriately Moves all extremities equally Psych: Normal affect, normal mood Emergency Department Course ECG: ECG @ 2216, read @ 2220 Vent Rate: 60 BPM CO Interval: 192 ms QRS duration: 88 ms QT/QTc: 442/442 ms P-R-T [place]: 35 -16 29 Findings: normal sinus rhythm, normal ECG Laboratory: CBC @ 2319: Hgb 11.5 (low), o/w WNL (WBC 8.9, PLT 158) CMP @ 2241: glucose 140 (high), BUN 48 (high), Cr 2.85 (high), GFR 17 (low), protein total 6.7 (low), o/w WNL Interventions: Apresoline 5mg IV X2 Emergency Department Course: 2154: Blood drawn. This was sent to the lab for further testing, results above. 221: Nursing notes and vitals reviewed. I performed an exam of the patient as documented above. 2302: Blood drawn. This was sent to the lab for further testing, results above. 2332: Spoke to Dr. Singh, [place] hospitalist. 2350: Patient re-evaluated. I personally reviewed the laboratory results with the Patient and answered all related questions prior to transfer to [place]. 0011: Spoke to Dr. Cruz, [facility] hospitalist of MICU. He has recommended further BP control withnitroprusside. Findings and plan explained to the Patient who consents to admission. Discussed the patient with , who will admit the patient to a [facility] ICU bed for further monitoring, evaluation, and treatment. Impression & Plan Medical Decision Making: Shabnam Wray is a 54 year old female status-post renal transplant for undiagnosed, poorly controlled HTN who presents to the ED for abnormal labs. Her vitals on initial presentation reveal severely elevated BP at 221/123, although they were otherwise within normal limits. With regards to the patient's renal failure, the exact etiology of this remains unclear, although this could certainly be pre-renal in the setting of her recent recent flu-like illness Her labs reveal a Cr of 2.85 with a BUN of 48. Previously, she did have post-renal obstruction causing nephropathy. Presently, she exhibits no symptoms of back or abdominal pain to suggest recurrent obstruction. At thetime of her previous ureteral obstruction, there was bilateral low back pain. Hypertensive urgency also on the ddx given her significantly elevated BP. Given her baseline BP of 140, patient was given hy dralazine and ultimately nitroprusside (per [place] recommendation) to improve BP (targeted 160 which was 25% drop). I did discuss over the phone with [facility], and they have requested the patient's transfer there for further treatment and care. Presently, she demonstrates no other evidence of end organ damage other than her kidney dysfunction. She does exhibit a headache but has no encephalopathy. Her ECG is without acute ischemic changes. She denies any other complaints including abdominal pain. She will be transported via ALS due to her significantly elevated BP. She was agreeable to this, and her questions were answered. Diagnosis: (584.9) Acute renal failure (401.9) Hypertension IVirgilio, am serving as a scribe on 10/30/2014 at 10:16 PM to personally document servicesperformed by Dr. Linn based on my observations and the provider's statements to me. Virgilio Buckner 10/30/2014 [facility] EMERGENCY DEPARTMENT Jon Linn MD 10/31/14 0231 Stephanie Arevalo RN - 10/30/2014 9:28 PM CDT ABC's intact. Alert and oriented x3. Pt has transplanted kidney. Normal lab check Sunday showed cr 2.8. Today redraw was 3.6. PMD told ptto be evaluated. Pt denies any symptoms now except slight headache. Had flu last week. documented in 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 Plan of Treatment Not on filedocumented as of 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 Procedures Procedure Name Priority Date/Time Associated Comments Diagnosis CBC WITH PLATELETS & STAT 10/30/2014 11:02 Res ults for this DIFFERENTIAL PM CDT procedure are i n the results section. EKG 12-LEAD, TRACING STAT 10/30/2014 10:16 Res ults for this ONLY PM CDT procedure are i n the results section. COMPREHENSIVE STAT 10/30/2014 9:55 PM Results for this METABOLIC PANEL CDT procedure ar e in the results section. documented in 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 Results (ABNORMAL) CBC + differential (10/30/2014 11:02 PM CDT) [facility] gist Method Time Signature WBC 8.9 4.0 - [facility] 11.0 [facility] 10e9/[facility] RBC Count 4.19 3.8 - 5.2 [facility] 10e12/L [facility] Hemoglobin 11.5 (L) 11.7 - [facility] 15.7 g/dL [facility] Hematocrit 35.8 35.0 - [facility] 47.0 % [facility] MCV 85 78 - 100 [facility] fl [facility] MCH 27.4 26.5 - [facility] 33.0 pg [facility] MCHC 32.1 31.5 - [facility] 36.5 g/dL [facility] RDW 15.1 (H) 10.0 - [facility] 15.0 % [facility] Platelet Count 158 150 - 450 [place] [id number]/[facility] Diff Method Automated [facility] % Neutrophils 66.4 % [facility] % Lymphocytes 23.8 % [facility] % Monocytes 8.4 % [facility] % Eosinophils 1.1 % [facility] % Basophils 0.2 % [facility] % Immature 0.1 % [facility] Granulocytes [facility] Absolute 5.9 1.6 - 8.3 [facility] Neutrophil 10e9/L [facility] Absolute 2.1 0.8 - 5.3 [facility] Lymphocytes 10e9/L [facility] Absolute 0.8 0.0 - 1.3 [facility] Monocytes 10e9/[facility] Absolute 0.1 0.0 - 0.7 [facility] Eosinophils 10e9/[facility] Absolute 0.0 0.0 - 0.2 [facility] Basophils 10e9/L [facility] Abs Immature 0.0 0 - 0.4 [facility] Granulocytes [address] [place] [address] Specimen Anatomical Collection Method Collection Time Receive d Time (Source) Location / / Volume Laterality Blood specimen 10/30/2014 11:02 5 (specimen) PM CDT 11:15 PM CDT Jon Linn MD LAB - BLOOD ORDERABLES Performing Organization Address City/State/ZIP Code Phon e Number [place] [address] [address] [place], [place] [address] [facility] [address] [place], [place] [address] EKG 12 lead (10/30/2014 10:16 PM CDT) Patholo gist Method Time Signature Interpretation ECG Click View RADIOLOGY Image link RESULTS to view waveform and result Specimen (Source) Anatomical Collection Method Collection Time Re ceived Time Location / / Volume Laterality 10/30/2014 10:16 PM CDT Jon Linn MD ECG ORDERABLES Performing Organization Address City/[facility] Phon e Number RADIOLOGY RESULTS (ABNORMAL) Comprehensive metabolic panel (10/30/2014 9:55 PM CDT) P athologist Signature Sodium 139 133 - 144 [facility] mmol/L [facility] Potassium 4.4 3.4 - 5.3 [facility] mmol/L [facility] Chloride 108 94 - 109 [facility] mmol/L [facility] Carbon Dioxide 23 20 - 32 [facility] mmol/L [facility] Anion Gap 8 3 - 14 [facility] mmol/L [facility] Glucose 140 (H) 70 - 99 [facility] mg/dL [facility] Comment: Effective 03/18/2014, the reference range for this assay has changed to reflect new instrumentation/methodology. Urea Nitrogen 48 (H) 7 - 30 mg/dL [facility] Comment: Effective 03/18/2014, the reference range for this assay has changed to reflect new instrumentation/methodology. Creatinine 2.85 (H) 0.52 - 1.04 mg/dL [facility] GFR Estimate 17 (L) >60 mL/min/1.7m2 [facility] Comment: Non GFR Calc GFR Estimate If Black 21 (L) >60 mL/min/1.7m2 [facility] Comment: GFR Calc Calcium 8.5 8.5 - 10.1 mg/dL [facility] Comment: Effective 03/18/2014, the reference range for this assay has changed to reflect new instrumentation/methodology. Bilirubin Total 0.2 0.2 - 1.3 mg/dL [facility] Albumin 3.6 3.4 - 5.0 g/dL [facility] Protein Total 6.7 (L) 6.8 - 8.8 g/dL [facility] Alkaline Phosphatase 115 40 - 150 U/L [facility] ALT 17 0 - 50 U/L [facility] AST 15 0 - 45 U/L [facility] Specimen Anatomical Collection Method Collection Time Receive d Time (Source) Location / / Volume Laterality Blood specimen 10/30/2014 9:55 PM 015 (specimen) CDT 10:18 PM CDT Bill Malagon MD LAB - BLOOD ORDERABLES Performing Organization Address City/State/ZIP Code Phon e Number [place] [address] [place] [address] [facility] [address] [place] [phone] documented in 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 Visit Diagnoses Diagnosis Acute renal failure (H) Acute kidney failure, unspecified Hypertension Unspecified essential hypertension documented in 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 Administered Medications Inactive Administered Medications - up to 3 most recent administrations Medication Order MAR Action Action Date Dose Rate Site hydrALAZINE (APRESOLINE) injection Given 10/30/2014 11:00 PM CDT 5 mg 5 mg 5 mg, Intravenous, ONCE, On Sun10/30/14 at 2242, For 1 dose hydrALAZINE (APRESOLINE) injection 5 mg Given 10/31/2014 12:09 AM CDT 5 mg 5 mg, Intravenous, ONCE, On Sun10/30/14 at 2350, For 1 dose nitroPRUSSIDE (NIPRIDE) 100 New Bag 10/31/2014 12:55 AM 0.25 m cg/kg/min 3.6 mL/hr mg in D5W 250 mL infusion CDT 0.25-5 mcg/kg/min ? 95.3 kg (3.5738-71.475 mL/hr, rounded to 3.6-71.5 mL/hr), Intravenous, CONTINUOUS, Starting on 10/31/14 at 0023, Start at lowest dose ordered. Titrate by 0.25 to 0.5 mcg/kg/min every 5 minutes to keep SBP less than or equal to 160 documented in 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 Active and Recently Administered Medications Times are shown in CDT. Scheduled Medication Order 10/29/2014 10/30/2014 10/31/2014 hydrALAZINE (APRESOLINE) injection 5 mg (COMPLETED) 2300 (Given - Provider: An Kinsey RN) 5 mg, Intravenous, ONCE, Sun10/30/14 at 2242, For 1 dose hydrALAZINE (APRESOLINE) injection 5 mg (COMPLETED) 0009 (Given - Provider: An Kinsey RN) 5 mg, Intravenous, ONCE, Sun10/30/14 at 2350, For 1 dose Continuous Medication Order 10/29/2014 10/30/2014 10/31/2014 nitroPRUSSIDE (NIPRIDE) 100 mg in D5W 250 mL infusion (CANCELED) 0055 (New Bag - Provider: An Kinsey RN) 0.25-5 mcg/kg/min ? 95.3 kg (3.5738-71.475 mL/hr, rounded to 3.6-71.5 mL/hr), at 3.6-71.5 mL/hr, Intravenous, CONTINUOUS, Starting 10/31/14 at 0023, Start at lowest dose ordered. Titrate by 0.25 to 0.5 mcg/kg/min every 5 minutes to keep SBP less than or equal to 160 documented in 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 Care Teams Supervisor [employer] Relationship Specialty Start Date End Date Steve Martínez DO PCP - General Nephrology 05/09/13 [facility] [address] [place] [address] documented as of 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
--- OUTSIDE RECORDS SUMMARY | 2022-05-25 12:55 | XMS_ITS | Encounter Summary ---
:1960 Author Organization [place] Address [address] [place] [id number] Care Team Providers Name Role Phone Unavailable Primary Care Provider Unavailable Encounter Details Date Type Department Care Team Description 08/10/2008 Historic Results INTERFACED REPORT Admit, Unknown Social History Tobacco Use Types Packs/Day Years Used Date Never Assessed Sex Assigned at Date Recorded Not on file documented as of 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 Plan of Treatment Not on filedocumented as of 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 Procedures Procedure Name Priority Date/Time Associated Comments Diagnosis CBC WITH PLATELETS & Routine 08/10/2008 8:20 AM R esults for this DIFFERENTIAL LIGHTING ENGINEER procedure are i n the results section. PHOSPHORUS Routine 08/10/2008 8:20 AM Results f or this LIGHTING ENGINEER procedure are i n the results section. COMPREHENSIVE Routine 08/10/2008 8:20 AM Results for this METABOLIC PANEL LIGHTING ENGINEER procedure ar e in the results section. documented in 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 Results (ABNORMAL) CBC with platelets differential (08/10/2008 8:20 AM LIGHTING ENGINEER) [facility] Method Time Signature MCV 96 78 - 100 [place] fl MCH 30.5 26.5 - [place] 33.0 pg MCHC 31.8 31.5 - [place] 36.5 g/dL RDW 13.9 10.0 - [place] 15.0 % WBC 9.1 4.0 - [place] 11.0 10e9/L RBC Count 5.60 (H) 3.8 - 5.2 [place] 10e12/L Hemoglobin 17.1 (H) 11.7 - [place] 15.7 g/dL Hematocrit 53.8 (H) 35.0 - [place] 47.0 % % Neutrophils 63 40 - 75 % [place] % Lymphocytes 19 (L) 20 - 48 % [facility] % Monocytes 14 (H) 0 - 12 % [facility] % Eosinophils 3 0 - 6 % [facility] % Basophils 1 0 - 2 % [facility] Platelet Count 185 150 - 450 [place] 10e9/L Absolute 5.8 1.6 - 8.3 [place] Neutrophil 10e9/L Absolute 1.8 0.8 - 5.3 [place] Lymphocytes 10e9/L Absolute 1.3 0.0 - 1.3 [place] Monocytes 10e9/L Absolute 0.2 0.0 - 0.7 [place] Eosinophils 10e9/L Absolute 0.1 0.0 - 0.2 [place] Basophils 10e9/L Diff Method Automated [facility] Method Specimen Anatomical Collection Method Collection Time Receive d Time (Source) Location / / Volume Laterality 08/10/2008 8:20 AM 8:11 LIGHTING ENGINEER AM LIGHTING ENGINEER Dr Unknown Admit LAB - BLOOD ORDERABLES Performing Organization Address City/State/ZIP Code Phon e Number [place] (ABNORMAL) Comprehensive metabolic panel (08/10/2008 8:20 AM LIGHTING ENGINEER) P athologist Signature Sodium 142 133 - 144 [place] mmol/L Potassium 4.1 3.4 - 5.3 [place] mmol/L Chloride 105 94 - 109 [place] mmol/L Carbon Dioxide 28 20 - 32 [place] mmol/L Glucose 126 (H) 60 - 99 [place] mg/dL Urea Nitrogen 16 5 - 24 [place] mg/dL Creatinine 1.02 0.52 - [place] 1.04 mg/dL Comment: New IDMS-traceable calibration beginning 12/19/07 GFR Estimate 58 (L) >60 mL/min/1.7m2 [place] GFR Estimate If Black 70 >60 mL/min/1.7m2 [facility] Calcium 9.6 8.5 - 10.4 mg/dL [facility] AST 40 0 - 45 U/L [facility] Protein Total 6.7 (L) 6.8 - 8.8 g/dL [facility] Comment: As of 08, reference range reflects plasma specimen type. Anion Gap 8 6 - 17 mmol/L [facility] Albumin 4.1 3.9 - 5.1 g/dL [facility] ALT 49 0 - 50 U/L [facility] Alkaline Phosphatase 158 (H) 40 - 150 U/L [place] Bilirubin Total 0.3 0.2 - 1.3 mg/dL [facility] Specimen Anatomical Collection Method Collection Time Receive d Time (Source) Location / / Volume Laterality 08/10/2008 8:20 AM 8 8:11 LIGHTING ENGINEER AM LIGHTING ENGINEER Dr Unknown Admit LAB - BLOOD ORDERABLES Performing Organization Address City/[facility] Code Phon e Number [place] Phosphorus (08/10/2008 8:20 AM LIGHTING ENGINEER) P athologist Signature Phosphorus 3.8 2.5 - 4.5 [place] mg/dL Specimen Anatomical Collection Method Collection Time Receive d Time (Source) Location / / Volume Laterality 08/10/2008 8:20 AM 8 8:11 LIGHTING ENGINEER AM LIGHTING ENGINEER Dr Unknown Admit LAB - BLOOD ORDERABLES Performing Organization Address City/State/ZIP Code Phon e Number [place] documented in 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 Visit Diagnoses Not on filedocumented in 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
--- OUTSIDE RECORDS SUMMARY | 2022-05-25 12:55 | XMS_ITS | Encounter Summary ---
:1960 Author Organization [place] Address Formerly [facility] [place] [address] Care Team Providers Name Role Phone Steve Martínez DO Primary Care Provider Reason for Visit Reason Comments Alcohol Intoxication Encounter Details Date Type Department Care Team Description 05/09/2013 Emergency [facility] Bill Malagon MD Alcohol intoxication (H) (Primary Dx); [facility] Emergency Dep t [facility] Scalp hematoma [address] [place], [place] [address] [facility] [id number] [place], [place] [id number] (Wo rk) Social History Tobacco Use Types [...] Sign Reading Time Taken Comments Blood Pressure 127/77 05/09/2013 9:49 PM CDT Pulse 59 05/09/2013 8:17 PM CDT Temperature 36.6 ??C (97.9 ??F) 05/09/2013 8:17 PM CDT Respiratory Rate 18 05/09/2013 9:49 PM CDT Oxygen Saturation 99% 05/09/2013 9:49 PM CDT Inhaled Oxygen Concentration - - Weight - - Height - - Body Mass Index - - documented in 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 Discharge Instructions AttachmentsThe following attachments cannot be sent through Care Everywhere. ALCOHOL INTOXICATION ([place])SCALP CONTUSION, NO WAKE UP ([place])documented in 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 Progress Notes Eloy Bella - 05/10/2013 9:55 AM CDT documented in 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 ED Notes Shelbie Oconnor RN - 05/09/2013 8:18 PM CDT Pt states she has a med list; unsure where. Bill Malagon MD - 05/09/2013 8:15 PM CDT History Chief Complaint: Alcohol Intoxication, Head injury HPI HISTORY IS LIMITED DUE TO PATIENT'S INTOXICATION Shabnam Wray is a 52 year old female who presents for evaluation of alcohol intoxication. The patient was brought in by EMS after falling in a bar while drinking vodka and Red Bull, the mechanismof the fall is unclear but multiple bystanders report she did not lose consciousness. The patient reports she does not remember the fall, but woke up on the floor. She was brought in for evaluation viaEMS who report that she vomited en route. Currently the patient is complaining of head pain from a lump on the back of her head where she landed, she rates this pain at 10/10 and states it is localizedto her head. Otherwise, the patient denies any chest pain, shortness of breath, or any other associated symptoms or concerns at this time Allergies: NKDA Medications: Cellcept and one other anti rejection medication Lipitor Unspecified anti depressant Jenuvia Past Medical History: Hypertension Kidney disease Depression Past Surgical History: Kidney transplant Family/Social History: The patient denies any significant past family history . Relationship status: Single The patient smokes cigarettes daily and drinks alcohol. Review of Systems UNABLE TO PERFORM DUE TO PATIENT'S ALCOHOL INTOXICATION Physical Exam First Vitals: Blood pressure: 119/75 Pulse: 59 Respiration rate: 18 SpO2: 98% Temperature: 97.9 Physical Exam Nursing note and vitals reviewed. Constitutional: She is cooperative. Intoxicated with alcohol HENT: Mouth/Throat: Mucous membranes are dry. Large right occipital hematoma Eyes: EOM are normal. Pupils are equal, round, and reactive to light. Cardiovascular: Normal rate, regular rhythm and normal heart sounds. No murmur heard. Pulmonary/Chest: Effort normal and breath sounds normal. No respiratory distress. She has no wheezes. She has no rales. Abdominal: Soft. Normal appearance and bowel sounds are normal. She exhibits no distension. There isno tenderness. There is no rigidity and no guarding. Musculoskeletal: Normal range of motion. Neurological: She is alert. She has normal strength. No cranial nerve deficit or sensory deficit. GCS eye subscore is 4. GCS verbal subscore is 4. GCS motor subscore is 6. Skin: Skin is warm and dry. No rash noted. Emergency Department Course Imaging: Radiographic findings were communicated with the patient and family who voiced understanding of the findings. C Spine XR: 1. Moderate degenerative changes mid cervical spine. 2. No fracture or acute appearing abnormality through T1. Head CT: 1. Brain normal. 2. Right parietal scalp hematoma. 3. Small amount of fluid in the left maxillary antrum. Laboratory: CBC: WBC 10.6 (WNL) HGB 13.4 (WNL) PLT 195 (WNL) RDW 15.9 (H) BMP: Cr 0.95 (WNL) Glucose 85 (WNL) Rest WNL Blood glucose: 95 WNL Blood alcohol: 0.22 ED Course: Nursing notes and vitals reviewed. I performed an exam of the patient as documented above. GCS 14 Findings and plan explained to the Patient and father. Patient discharged home, status improved, with instructions regarding supportive care, medications, and reasons to return as well as the importance of close follow-up was reviewed. Impression & Plan Medical Decision Making: This is a 52 year old female who presents via EMS intoxicated. She had a fall, but she is amnestic of the event. She has a large scalp hematoma on her right parietal region so I obtained head and neck CT's, fortunately these were negative for acute head bleed or fracture. She is mentating well at thistime, though she is clinically intoxicated. Her father has shown up and is able to provide a safe ride home and she will be discharged home in stable condition. Her physical examination reveals no other injuries. Diagnosis: 1. Fall 2. Alcohol intoxication 3. Right parietal scalp hematoma Plan: Discharge to home with primary follow up as needed I, Nemesio Rubin, am serving as a scribe on 05/09/2013 at 8:19 PM to personally document services performed by Dr. Malagon based on my observations and the provider's statements to me. Nemesio Rubin 05/09/2013 [facility] Bill Malagon MD 05/09/13 [id number] Shelbie Oconnor RN - 05/09/2013 8:10 PM CDT Per EMS: Pt drinking RedBull and Vodka tonight. Blew 0.12 not any where near her mouth. Initial call was due to a fall; unsure of trip vs fall off a bar stool; bystanders all agreed that she had no LOC. Pt has vomited. Refused to wear a c-collar and pulled it off prior to arrival. Incontinent of urine and stool. Given 4 mg Zofran IV. Pt arrives alert with slurred speech; oriented to person, place and time. Pt's only complaints include a lump on the back of my head and the tight blood pressure cuff. Airway, breathing and circulation intact without need for intervention. Shelbie Oconnor RN - 05/09/2013 8:09 PM CDTBed:[id number]
Expected date:05/09/13
Expected time: 7:59 PM
Means of arrival:
Comments:
[facility] 594 documented in 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 Plan of Treatment Not on filedocumented as of 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 Procedures Procedure Name Priority Date/Time Associated Comments Diagnosis INR STAT 05/09/2013 9:17 PM Results f or this CDT procedure are i n the results section. PARTIAL THROMBOPLASTIN STAT 05/09/2013 9:17 PM Results for this TIME CDT procedure are i n the results section. ETHYL ALCOHOL LEVEL STAT 05/09/2013 9:17 PM Re sults for this CDT procedure are i n the results section. CT CERVICAL SPINE W/O STAT 05/09/2013 8:58 PM Results for this CONTRAST CDT procedure are i n the results section. CT HEAD W/O CONTRAST STAT 05/09/2013 8:57 PM R esults for this CDT procedure are i n the results section. CBC WITH PLATELETS & STAT 05/09/2013 8:15 PM R esults for this DIFFERENTIAL CDT procedure are i n the results section. BASIC METABOLIC PANEL STAT 05/09/2013 8:15 PM Results for this CDT procedure are i n the results section. GLUCOSE BY METER Routine 05/09/2013 8:14 PM Resul ts for this CDT procedure are i n the results section. documented in 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 Results Partial thromboplastin time (05/09/2013 9:17 PM CDT) P athologist Signature PTT 25 22 - 37 sec [facility] Specimen Anatomical Collection Method Collection Time Receive d Time (Source) Location / / Volume Laterality Blood specimen 05/09/2013 9:17 PM 013 9:20 (specimen) CDT PM CDT Bill Malagon MD LAB - BLOOD ORDERABLES Performing Organization Address [facility] Phon e Number [place] [id number] [place], [place] [address] [facility] INR (05/09/2013 9:17 PM CDT) P athologist Signature INR 0.98 0.86 - 1.14 [facility] Specimen Anatomical Collection Method Collection Time Receive d Time (Source) Location / / Volume Laterality Blood specimen 05/09/2013 9:17 PM 013 9:20 (specimen) CDT PM CDT Bill Malagon MD LAB - BLOOD ORDERABLES Performing Organization Address [facility] Phon e Number [facility] [address], [place] [address] [facility] (ABNORMAL) Alcohol ethyl (05/09/2013 9:17 PM CDT) P athologist Signature Ethanol g/dL 0.22 (H) 0.01 g/dL [facility] Specimen Anatomical Collection Method Collection Time Receive d Time (Source) Location / / Volume Laterality Blood specimen 05/09/2013 9:17 PM 013 9:20 (specimen) CDT PM CDT Bill Malagon MD LAB - BLOOD ORDERABLES Performing Organization Address City/State/ZIP Code Phon e Number [facility] [address] [place], [place] [address] [facility] Cervical spine CT w/o contrast (05/09/2013 8:58 PM CDT) Anatomical Region Laterality Modality Spine, SUBRAD CT NEURO, SUBRAD CT NEURO, UMP CT SPINE Computed Tomography Specimen (Source) Anatomical Collection Method Collection Time Re ceived Time Location / / Volume Laterality 05/09/2013 8:58 PM CDT Impressions 05/09/2013 9:04 PM CDT IMPRESSION: 1. Moderate degenerative changes mid cer vical spine. 2. No fracture or acute appearing abnorm ality through T1. IMANI HAWKINS MD Narrative 05/09/2013 9:[address] CERV SPINE ??W/O CONTRAST* 05/09/2013 8:58 PM HISTORY: ??Fell. COMPARISON: None. TECHNIQUE: Routine cervical spine CT thr ough T1. FINDINGS: Alignment is normal through T1 . There is loss of normal cervical lordosis. There are degenerativ e changes present most marked at C5-6 where there is advanced degenera tive narrowing of the interspace mild ventral ridging. No sign ificant central or lateral stenosis. Procedure Note Imani Hawkins MD - 05/09/2013Forma tting of this note might be different from the original. CT CERV SPINE W/O CONTRAST* 05/09/2013 8: 58 PM HISTORY: Fell. COMPARISON: None. TECHNIQUE: Routine cervical spine CT thr ough T1. FINDINGS: Alignment is normal through T1 . There is loss of normal cervical lordosis. There are degenerativ e changes present most marked at C5-6 where there is advanced degenera tive narrowing of the interspace mild ventral ridging. No sign ificant central or lateral stenosis. IMPRESSION IMPRESSION: 1. Moderate degenerative changes mid cer vical spine. 2. No fracture or acute appearing abnorm ality through T1. IMANI HAWKINS MD Bill Malagon MD [facility] CT ORDERABLES CT Head w/o Contrast (05/09/2013 8:57 PM CDT) Anatomical Region Laterality Modality Head, SUBRAD CT NEURO, SUBRAD CT NEURO, UMP CT NEURO Computed Tomography Specimen (Source) Anatomical Collection Method Collection Time Re ceived Time Location / / Volume Laterality 05/09/2013 8:57 PM CDT Impressions 05/09/2013 9:03 PM CDT IMPRESSION: 1. Brain normal. 2. Right frontal scalp hematoma. 3. Small amount of fluid in the left max illary antrum. IMANI HAWKINS MD Narrative 05/09/2013 9:[address] HEAD W/O CONTRAST* ??05/09/2013 8:57 P M HISTORY: ??Fell. COMPARISON: None. FINDINGS: Moderate size right parietal s calp hematoma. No underlying fracture. No intracranial hemorrhage, ma ss, or recent infarct. Sinuses have a trace of fluid in the lef t maxillary antrum. Procedure Note Imani Hawkins MD - 05/09/2013Forma tting of this note might be different from the original. CT HEAD W/O CONTRAST* 05/09/2013 8:57 PM HISTORY: Fell. COMPARISON: None. FINDINGS: Moderate size right parietal s calp hematoma. No underlying fracture. No intracranial hemorrhage, ma ss, or recent infarct. Sinuses have a trace of fluid in the lef t maxillary antrum. IMPRESSION IMPRESSION: 1. Brain normal. 2. Right frontal scalp hematoma. 3. Small amount of fluid in the left max illary antrum. IMANI HAWKINS MD Bill Malagon MD [facility] CT ORDERABLES Basic metabolic panel (05/09/2013 8:15 PM CDT) P athologist Signature Sodium 143 133 - 144 [place] mmol/L [facility] Potassium 3.5 3.4 - 5.3 [facility] mmol/L [facility] Chloride 104 94 - 109 [place] mmol/L [facility] Carbon Dioxide 24 20 - 32 [place] mmol/L [facility] Anion Gap 14 6 - 17 [place] mmol/L [facility] Glucose 85 60 - 99 [place] mg/dL [facility] Urea Nitrogen 15 7 - 30 [place] mg/dL [facility] Creatinine 0.95 0.52 - [place] 1.04 mg/dL [facility] GFR Estimate 62 >60 [place] mL/min/1.[address] LAB GFR Estimate If 74 >60 [place] Black mL/min/1.[address] LAB Calcium 9.2 8.5 - 10.4 [place] mg/dL [facility] Specimen Anatomical Collection Method Collection Time Receive d Time (Source) Location / / Volume Laterality Blood specimen 05/09/2013 8:15 PM 013 8:42 (specimen) CDT PM CDT Bill Malagon MD LAB - BLOOD ORDERABLES Performing Organization Address City/State/ZIP Code Phon e Number [place] [address] [place], [place] [address] [facility] (ABNORMAL) CBC with platelets differential (05/09/2013 8:15 PM CDT) [facility] gist Method Time Signature WBC 10.6 4.0 - [place] 11.0 [facility] 10e9/L [facility] RBC Count 4.82 3.8 - 5.2 [place] 10e12/L [facility] Hemoglobin 13.4 11.7 - [place] 15.7 g/dL [facility] Hematocrit 40.9 35.0 - [place] 47.0 % [facility] MCV 85 78 - 100 [facility] LAB MCH 27.8 26.5 - [facility] 33.0 pg [facility] MCHC 32.8 31.5 - [place] 36.5 g/dL [facility] RDW 15.9 (H) 10.0 - [facility] 15.0 % [facility] Platelet Count 195 150 - 450 [place] 10e9/L [facility] Diff Method Automated [facility] % Neutrophils 52.7 % [facility] % Lymphocytes 36.9 % [facility] % Monocytes 8.5 % [facility] % Eosinophils 1.5 % [facility] % Basophils 0.2 % [facility] % Immature 0.2 % [place] Granulocytes [facility] Absolute 5.6 1.6 - 8.3 [place] Neutrophil 10e9/L [facility] Absolute 3.9 0.8 - 5.3 [place] Lymphocytes 10e9/L [facility] Absolute 0.9 0.0 - 1.3 [place] Monocytes 10e9/L [facility] Absolute 0.2 0.0 - 0.7 [place] Eosinophils 10e9/L [facility] Absolute 0.0 0.0 - 0.2 [place] Basophils 10e9/L [facility] Abs Immature 0.0 0 - 0.4 [place] Granulocytes 10e9/L [facility] Reactive Lymphs Present [facility] RBC Morphology Consistent [place] with reported [facility] Platelet Normal [place] Estimate [facility] Specimen Anatomical Collection Method Collection Time Receive d Time (Source) Location / / Volume Laterality Blood specimen 05/09/2013 8:15 PM 013 8:42 (specimen) CDT PM CDT Bill Malagon MD LAB - BLOOD ORDERABLES Performing Organization Address City/State/ZIP Code Phon e Number [place] [address] [facility] Glucose by meter (05/09/2013 8:14 PM CDT) P athologist Signature Glucose 95 60 - 99 POINT OF CARE mg/dL TEST, GLUCOSE Comment: Dr/RN Notified Specimen Anatomical Collection Method Collection Time Receive d Time (Source) Location / / Volume Laterality 05/09/2013 8:14 PM 3 8:15 CDT PM CDT Bill Malagon MD LAB - BEAKER POCT Performing Organization Address City/State/ZIP Code Phon e Number [facility] POINT OF CARE TEST, GLUCOSE POINT OF CARE TEST, GLUCOSE documented in 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 Visit Diagnoses Diagnosis Alcohol intoxication (H) - Primary Alcohol abuse, unspecified Scalp hematoma Contusion of face, scalp, and neck excep t eye(s) documented in 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 Active and Recently Administered Medications Care Teams 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
--- OUTSIDE RECORDS SUMMARY | 2022-05-25 12:55 | XMS_ITS | Encounter Summary ---
:1960 Author Organization [facility] Address [address] [place] [id number] Care Team Providers Name Role Phone Unavailable Primary Care Provider Unavailable Encounter Details Date Type Department Care Team Description 12/28/2007 Historic Results INTERFACED REPORT No Ref-Primar y, Physician Social History Tobacco Use Types Packs/Day Years Used Date Never Assessed Sex Assigned at Date Recorded Not on file documented as of 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 Plan of Treatment Not on filedocumented as of 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 Procedures Procedure Name Priority Date/Time Associated Comments Diagnosis PERITONEAL FLUID Routine 12/28/2007 7:50 AM Resul ts for this CULTURE CDT procedure are i n the results section. GRAM STAIN Routine 12/28/2007 7:50 AM Results f or this CDT procedure are i n the results section. CELL COUNT WITH STAT 12/28/2007 7:50 AM Result s for this DIFFERENTIAL FLUID CDT procedure are in the results section. CBC WITH PLATELETS & STAT 12/28/2007 7:30 AM R esults for this DIFFERENTIAL CDT procedure are i n the results section. LIPASE STAT 12/28/2007 7:30 AM Results f or this CDT procedure are i n the results section. HEPATIC FUNCTION STAT 12/28/2007 7:30 AM Resul ts for this PANEL CDT procedure are i n the results section. BASIC METABOLIC PANEL STAT 12/28/2007 7:30 AM Results for this CDT procedure are i n the results section. documented in 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 Results Cell count with differential fluid (12/28/2007 7:50 AM CDT) [facility] Method Time Signature Body Fluid Abdominal MISYS Analysis Source fluid Color Fluid Colorless MISYS Appearance Cloudy MISYS Fluid WBC Fluid 3250 /uL MISYS RBC Fluid 2000 /uL MISYS % Neutrophils 79 % MISYS Fluid % Gregg/Macro 20 % MISYS Fluid % Eosinophils 1 % MISYS Fluid Specimen Anatomical Collection Method Collection Time Receive d Time (Source) Location / / Volume Laterality 12/28/2007 7:50 AM 8 7:26 CDT AM CDT Jtain Schultz MD LAB - BODY FLUIDS ORDERABLES Performing Organization Address [facility] Phon e Number MISYS Gram stain (12/28/2007 7:50 AM CDT) [facility] Method Time Signature Specimen Peritoneal MISYS Description fluid Dialysate Gram Stain No organisms MISYS seen Comment: Many PMNs seen Micro Report Status FINAL 12/28/2007 MIS YS Specimen Anatomical Collection Method Collection Time Receive d Time (Source) Location / / Volume Laterality 12/28/2007 7:50 AM 8 8:10 CDT AM CDT Physician No Ref-Primary LAB - MICRO GENERAL ORDERABL ES Performing Organization Address [facility] Phon e Number MISYS Peritoneal fluid culture (12/28/2007 7:50 AM CDT) [facility] Method Time Signature Specimen Peritoneal MISYS Description fluid Dialysate Culture Micro No growth The MISYS broth portion of this culture is being monitored for an additional Comment: 3 days. ??If the broth becomes positive with growth, an amended report will be generated. Micro Report Status FINAL 12/31/2007 MIS YS Specimen Anatomical Collection Method Collection Time Receive d Time (Source) Location / / Volume Laterality 12/28/2007 7:50 AM 8 8:10 CDT AM CDT Physician No Ref-Primary LAB - MICRO GENERAL ORDERABL ES Performing Organization Address [facility] Phon e Number MISYS (ABNORMAL) CBC with platelets differential (12/28/2007 7:30 AM CDT) [facility] Method Time Signature MCV 91 78 - 100 MISYS fl MCH 31.8 26.5 - MISYS 33.0 pg MCHC 35.2 31.5 - MISYS 36.5 g/dL RDW 15.3 (H) 10.0 - MISYS 15.0 % WBC 12.5 (H) 4.0 - MISYS 11.0 10e9/L RBC Count 4.03 3.8 - 5.2 MISYS 10e12/L Hemoglobin 12.8 11.7 - MISYS 15.7 g/dL Hematocrit 36.5 35.0 - MISYS 47.0 % % Neutrophils 87 (H) 40 - 75 % MISYS % Lymphocytes 7 (L) 20 - 48 % MISYS % Monocytes 5 0 - 12 % MISYS % Eosinophils 1 0 - 6 % MISYS % Basophils 0 0 - 2 % MISYS Platelet Count 269 150 - 450 MISYS 10e9/L Absolute 10.8 (H) 1.6 - 8.3 MISYS Neutrophil 10e9/L Absolute 0.9 0.8 - 5.3 MISYS Lymphocytes 10e9/L Absolute 0.7 0.0 - 1.3 MISYS Monocytes 10e9/L Absolute 0.1 0.0 - 0.7 MISYS Eosinophils 10e9/L Absolute 0.0 0.0 - 0.2 MISYS Basophils 10e9/L Diff Method Automated MISYS Method Specimen Anatomical Collection Method Collection Time Receive d Time (Source) Location / / Volume Laterality 12/28/2007 7:30 AM 8 7:26 CDT AM CDT Jatin Schultz MD LAB - BLOOD ORDERABLES Performing Organization Address City/State/ZIP Code Phon e Number MISYS (ABNORMAL) Basic metabolic panel (12/28/2007 7:30 AM CDT) Analysis Performed At Patho logist Time Signature Sodium 135 133 - 144 MISYS mmol/L Potassium 3.5 3.4 - 5.3 MISYS mmol/L Chloride 92 (L) 94 - 109 MISYS mmol/L Carbon Dioxide 26 20 - 32 MISYS mmol/L Glucose 95 60 - 99 MISYS mg/dL Urea Nitrogen 47 (H) 5 - 24 MISYS mg/dL Creatinine 9.03 (H) 0.52 - MISYS 1.04 mg/dL Comment: New IDMS-traceable calibration beginning 12/19/07 GFR Estimate 5 (L) >60 mL/min/1.7m2 MISYS GFR Estimate If Black 6 (L) >60 mL/min/1.7m2 M ISYS Calcium 9.0 8.5 - 10.4 mg/dL MISYS Anion Gap 17 6 - 17 mmol/L MISYS Specimen Anatomical Collection Method Collection Time Receive d Time (Source) Location / / Volume Laterality 12/28/2007 7:30 AM 8 7:26 CDT AM CDT Jatin Schultz MD LAB - BLOOD ORDERABLES Performing Organization Address City/[facility] Phon e Number MISYS (ABNORMAL) Hepatic panel (12/28/2007 7:30 AM CDT) Analysis Performed At Patho logist Time Signature AST 24 0 - 45 U/L MISYS Protein Total 7.3 6.0 - 8.2 MISYS g/dL Albumin 4.1 3.3 - 4.6 MISYS g/dL ALT 18 0 - 50 U/L MISYS Alkaline 82 40 - 150 MISYS Phosphatase U/L Bilirubin 0.1 0.0 - 0.3 MISYS Conjugated mg/dL Bilirubin Delta 0.6 (H) 0.0 - 0.4 MISYS mg/dL Bilirubin Total 0.7 0.2 - 1.3 MISYS mg/dL Specimen Anatomical Collection Method Collection Time Receive d Time (Source) Location / / Volume Laterality 12/28/2007 7:30 AM 8 7:26 CDT AM CDT Jatin Schultz MD LAB - BLOOD ORDERABLES Performing Organization Address City/[facility]/ZIP [facility] [place] [place] Phon e Number MISYS Lipase (12/28/2007 7:30 AM CDT) P athologist Signature Lipase 35 20 - 250 U/L MISYS Specimen Anatomical Collection Method Collection Time Receive d Time (Source) Location / / Volume Laterality 12/28/2007 7:30 AM 8 7:26 CDT AM CDT Jatin Schultz MD LAB - BLOOD ORDERABLES Performing Organization Address City/State/ZIP Code Phon e Number MISYS documented in 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 Visit Diagnoses Not on filedocumented in 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
--- OUTSIDE RECORDS SUMMARY | 2022-05-25 12:55 | XMS_ITS | Encounter Summary ---
:1960 Author Organization [facility] Address [facility]ly [facility] [place] [address] Care Team Providers Name Role Phone Unavailable Primary Care Provider Unavailable Encounter Details Date Type Department Care Team Description 02/09/2009 Historic Results INTERFACED REPORT Ravi Basilio MD, MD [facility] [address] [place], [place] [address] Social History Tobacco Use Types Packs/Day Years Used Date Never Assessed Sex Assigned at Date Recorded Not on file documented as of 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 Plan of Treatment Not on filedocumented as of 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 Procedures Procedure Name Priority Date/Time Associated Comments Diagnosis CBC WITH PLATELETS & Routine 02/09/2009 8:18 AM R esults for this DIFFERENTIAL CDT procedure are i n the results section. SIROLIMUS BY TANDEM Routine 02/09/2009 8:18 AM Re sults for this MASS SPECTROMETRY CDT procedure are in the results section. PHOSPHORUS Routine 02/09/2009 8:18 AM Results f or this CDT procedure are i n the results section. MYCOPHENOLIC ACID BY Routine 02/09/2009 8:18 AM R esults for this TANDEM MASS CDT procedure are i n SPECTROMETRY the results section. CMV QUANTITATIVE, PCR Routine 02/09/2009 8:18 AM Results for this CDT procedure are i n the results section. BK VIRUS Routine 02/09/2009 8:18 AM Results f or this QUANTITATIVE, PCR CDT procedure are in the results section. BASIC METABOLIC PANEL Routine 02/09/2009 8:18 AM Results for this CDT procedure are i n the results section. documented in 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 Results (ABNORMAL) Basic metabolic panel (02/09/2009 8:18 AM CDT) Analysis Performed At Patho logist Time Signature Sodium 140 133 - 144 MISYS mmol/L Potassium 3.8 3.4 - 5.3 MISYS mmol/L Chloride 106 94 - 109 MISYS mmol/L Carbon Dioxide 25 20 - 32 MISYS mmol/L Glucose 112 (H) 60 - 99 MISYS mg/dL Urea Nitrogen 18 5 - 24 MISYS mg/dL Creatinine 1.26 (H) 0.52 - MISYS 1.04 mg/dL Comment: New IDMS-traceable calibration beginning 12/19/07 GFR Estimate 45 (L) >60 mL/min/1.7m2 MISYS GFR Estimate If Black 55 (L) >60 mL/min/1.7m2 M ISYS Calcium 9.6 8.5 - 10.4 mg/dL MISYS Anion Gap 9 6 - 17 mmol/L MISYS Specimen Anatomical Collection Method Collection Time Receive d Time (Source) Location / / Volume Laterality 02/09/2009 8:18 AM 9 8:03 CDT AM CDT Maxi Basilio MD, LAB - BLOOD ORDERABLES Performing Organization Address City/State/ZIP Code Phon e Number MISYS CBC with platelets differential (02/09/2009 8:18 AM CDT) [facility] gist Method Time Signature MCV 84 78 - 100 MISYS fl MCH 27.8 26.5 - MISYS 33.0 pg MCHC 33.2 31.5 - MISYS 36.5 g/dL RDW 14.4 10.0 - MISYS 15.0 % WBC 4.9 4.0 - MISYS 11.0 10e9/L RBC Count 4.46 3.8 - 5.2 MISYS 10e12/L Hemoglobin 12.4 11.7 - MISYS 15.7 g/dL Hematocrit 37.3 35.0 - MISYS 47.0 % % Neutrophils 51 40 - 75 % MISYS % Lymphocytes 35 20 - 48 % MISYS % Monocytes 11 0 - 12 % MISYS % Eosinophils 3 0 - 6 % MISYS % Basophils 0 0 - 2 % MISYS Platelet Count 180 150 - 450 MISYS 10e9/L Absolute 2.5 1.6 - 8.3 MISYS Neutrophil 10e9/L Absolute 1.7 0.8 - 5.3 MISYS Lymphocytes 10e9/L Absolute 0.5 0.0 - 1.3 MISYS Monocytes 10e9/L Absolute 0.1 0.0 - 0.7 MISYS Eosinophils 10e9/L Absolute 0.0 0.0 - 0.2 MISYS Basophils 10e9/L Diff Method Automated MISYS Method Specimen Anatomical Collection Method Collection Time Receive d Time (Source) Location / / Volume Laterality 02/09/2009 8:18 AM 9 8:03 CDT AM CDT Maxi Basilio MD, MD LAB - BLOOD ORDERABLES Performing Organization Address City/[facility] Code Phon e Number MISYS (ABNORMAL) Mycophenolic acid (02/09/2009 8:18 AM CDT) Patholo gist Method Time Signature Last Dose 02/08/09 MISYS Mycophenolic Acid 2100 Mycophenolic Acid 0.79 (L) 1.00 - MISYS Mg/L 3.50 mg/L MPA Glucuronide 33.9 30.0 - MISYS Level 95.0 mg/L Specimen Anatomical Collection Method Collection Time Receive d Time (Source) Location / / Volume Laterality 02/09/2009 8:18 AM 9 8:03 CDT AM CDT Maxi Basilio MD, MD LAB - BLOOD ORDERABLES Performing Organization Address City/[facility] Code Phon e Number MISYS Phosphorus (02/09/2009 8:18 AM CDT) P athologist Signature Phosphorus 3.6 2.5 - 4.5 MISYS mg/dL Specimen Anatomical Collection Method Collection Time Receive d Time (Source) Location / / Volume Laterality 02/09/2009 8:18 AM 9 8:03 CDT AM CDT Maxi Basilio MD, MD LAB - BLOOD ORDERABLES Performing Organization Address City/[facility]/ZIP Code Phon e Number MISYS Sirolimus level (02/09/2009 8:18 AM CDT) Analysis Performed At Patho logist Time Signature Sirolimus 11.1 5.0 - 15.0 MISYS Level ug/L Sirolimus Last 02/08/09 MISYS Dose 0900 Specimen Anatomical Collection Method Collection Time Receive d Time (Source) Location / / Volume Laterality 02/09/2009 8:18 AM 9 8:03 CDT AM CDT Maxi Basilio MD, MD LAB - BLOOD ORDERABLES Performing Organization Address City/State/ZIP Code Phon e Number MISYS BK virus PCR quantitative (02/09/2009 8:18 AM CDT) [facility] Method Time Signature BK Virus <1000 <1000 MISYS Result copies/mL BK Virus Plasma, EDTA MISYS Specimen anticoagulant BK Virus Log <3.0 <3.0 Log MISYS copies/mL Comment: The lower limit of detection for this as say is 1000 copies/mL. ??Real-time TaqMan PCR was performed using BK primers and probe for the detection of a 90 bp portion of the [employer] 1 gene. ??The perform ance characteristics were validated by the [facility] [address] [facility], [place]. Specimen Anatomical Collection Method Collection Time Receive d Time (Source) Location / / Volume Laterality 02/09/2009 8:18 AM 9 8:03 CDT AM CDT Maxi Basilio MD, MD LAB - MICRO GENERAL ORDERABL ES Performing Organization Address City/[facility] Phon e Number MISYS CMV DNA quantification (02/09/2009 8:18 AM CDT) Component Value Ref Test Analysis Performed At [facility] Range Method Time Signature CMV DNA Whole blood, MISYS Quantitation EDTA Specimen anticoagulant CMV <100 <100 MISYS Quantitative Copies/m L Comment: No CMV DNA detected. CMV QT Log <2.0 <2.0 Log copies/mL MISYS Comment: The Cytomegalovirus DNA Quantitation ass ay is a real-time polymerase chain reaction (PCR) utilizing analyte specif ic reagents manufactured by [employer] in [place]. Analyte Specific Reagents (ASRs) are used in many laboratory tests necessary for standard medical ca re and generally do not require FDA approval. This test was developed and its perform ance characteristics determined by [facility]. ??It has not been cleared or approved by the US Food and Drug Administration. Specimen Anatomical Collection Method Collection Time Receive d Time (Source) Location / / Volume Laterality 02/09/2009 8:18 AM 9 8:03 CDT AM CDT Maxi Basilio MD, MD LAB - MICRO GENERAL ORDERABL ES Performing Organization Address City/[facility]/ZIP [facility] Phon e Number MISYS documented in 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 Visit Diagnoses Not on filedocumented in 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
--- OUTSIDE RECORDS SUMMARY | 2022-05-25 12:55 | XMS_ITS | Encounter Summary ---
:1960 Author Organization [place] Address [facility] [place] [address] Care Team Providers Name Role Phone Unavailable Primary Care Provider Unavailable Encounter Details Date Type Department Care Team Description 08/17/2008 Historic Results INTERFACED REPORT Ravi Basilio MD, MD [facility] [address] [place] [id number] Social History Tobacco Use Types Packs/Day Years Used Date Never Assessed Sex Assigned at Date Recorded Not on file documented as of 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 Plan of Treatment Not on filedocumented as of 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 Procedures Procedure Name Priority Date/Time Associated Comments Diagnosis CBC WITH PLATELETS & Routine 08/17/2008 8:20 AM R esults for this DIFFERENTIAL PHOTOGEOLOGIST procedure are i n the results section. PHOSPHORUS Routine 08/17/2008 8:20 AM Results f or this PHOTOGEOLOGIST procedure are i n the results section. COMPREHENSIVE Routine 08/17/2008 8:20 AM Results for this METABOLIC PANEL PHOTOGEOLOGIST procedure ar e in the results section. documented in 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 Results (ABNORMAL) CBC with platelets differential (08/17/2008 8:20 AM PHOTOGEOLOGIST) [facility] Method Time Signature MCV 95 78 - 100 MISYS fl MCH 30.4 26.5 - MISYS 33.0 pg MCHC 32.0 31.5 - MISYS 36.5 g/dL RDW 14.0 10.0 - MISYS 15.0 % WBC 11.8 (H) 4.0 - MISYS 11.0 10e9/L RBC Count 5.62 (H) 3.8 - 5.2 MISYS 10e12/L Hemoglobin 17.1 (H) 11.7 - MISYS 15.7 g/dL Hematocrit 53.5 (H) 35.0 - MISYS 47.0 % % Neutrophils 69 40 - 75 % MISYS % Lymphocytes 19 (L) 20 - 48 % MISYS % Monocytes 8 0 - 12 % MISYS % Eosinophils 3 0 - 6 % MISYS % Basophils 1 0 - 2 % MISYS Platelet Count 186 150 - 450 MISYS 10e9/L Absolute 8.2 1.6 - 8.3 MISYS Neutrophil 10e9/L Absolute 2.3 0.8 - 5.3 MISYS Lymphocytes 10e9/L Absolute 1.0 0.0 - 1.3 MISYS Monocytes 10e9/L Absolute 0.3 0.0 - 0.7 MISYS Eosinophils 10e9/L Absolute 0.1 0.0 - 0.2 MISYS Basophils 10e9/L Diff Method Automated MISYS Method Specimen Anatomical Collection Method Collection Time Receive d Time (Source) Location / / Volume Laterality 08/17/2008 8:20 AM 8 8:14 PHOTOGEOLOGIST AM PHOTOGEOLOGIST Maxi Basilio MD, LAB - BLOOD ORDERABLES Performing Organization Address City/State/ZIP Code Phon e Number MISYS (ABNORMAL) Comprehensive metabolic panel (08/17/2008 8:20 AM PHOTOGEOLOGIST) Analysis Performed At Patho logist Time Signature Sodium 139 133 - 144 MISYS mmol/L Potassium 4.2 3.4 - 5.3 MISYS mmol/L Chloride 108 94 - 109 MISYS mmol/L Carbon Dioxide 27 20 - 32 MISYS mmol/L Glucose 106 (H) 60 - 99 MISYS mg/dL Urea Nitrogen 17 5 - 24 MISYS mg/dL Creatinine 1.12 (H) 0.52 - MISYS 1.04 mg/dL Comment: New IDMS-traceable calibration beginning 12/19/07 GFR Estimate 52 (L) >60 mL/min/1.7m2 MISYS GFR Estimate If Black 63 >60 mL/min/1.7m2 M ISYS Calcium 10.3 8.5 - 10.4 mg/dL MISYS AST 27 0 - 45 U/L MISYS Protein Total 6.6 (L) 6.8 - 8.8 g/dL MISYS Comment: As of 08, reference range reflects plasma specimen type. Anion Gap 4 (L) 6 - 17 mmol/L MISYS Albumin 3.8 (L) 3.9 - 5.1 g/dL MISYS ALT 32 0 - 50 U/L MISYS Alkaline Phosphatase 151 (H) 40 - 150 U/L MISYS Bilirubin Total 0.2 0.2 - 1.3 mg/dL MISYS Specimen Anatomical Collection Method Collection Time Receive d Time (Source) Location / / Volume Laterality 08/17/2008 8:20 AM 8 8:14 PHOTOGEOLOGIST AM PHOTOGEOLOGIST Maxi Basilio MD, MD LAB - BLOOD ORDERABLES Performing Organization Address City/State/ZIP Code Phon e Number MISYS Phosphorus (08/17/2008 8:20 AM PHOTOGEOLOGIST) P athologist Signature Phosphorus 2.8 2.5 - 4.5 MISYS mg/dL Specimen Anatomical Collection Method Collection Time Receive d Time (Source) Location / / Volume Laterality 08/17/2008 8:20 AM 8 8:14 PHOTOGEOLOGIST AM PHOTOGEOLOGIST Maxi Basilio MD, MD LAB - BLOOD ORDERABLES Performing Organization Address City/State/ZIP Code Phon e Number MISYS documented in 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 Visit Diagnoses Not on filedocumented in 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
--- OUTSIDE RECORDS SUMMARY | 2022-05-25 12:55 | XMS_ITS | Encounter Summary ---
:1960 Author Organization [place] Address [facility] [place] [address] Care Team Providers Name Role Phone Unavailable Primary Care Provider Unavailable Encounter Details Date Type Department Care Team Description 02/23/2009 Historic Results INTERFACED REPORT Ravi Basilio MD, MD [facility] [address] [place], [place] [address] Social History Tobacco Use Types Packs/Day Years Used Date Never Assessed Sex Assigned at Date Recorded Not on file documented as of 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 Plan of Treatment Not on filedocumented as of 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 Procedures Procedure Name Priority Date/Time Associated Comments Diagnosis CBC WITH PLATELETS & Routine 02/23/2009 9:19 AM R esults for this DIFFERENTIAL CDT procedure are i n the results section. SIROLIMUS BY TANDEM Routine 02/23/2009 9:19 AM Re sults for this MASS SPECTROMETRY CDT procedure are in the results section. PHOSPHORUS Routine 02/23/2009 9:19 AM Results f or this CDT procedure are i n the results section. MYCOPHENOLIC ACID BY Routine 02/23/2009 9:19 AM R esults for this TANDEM MASS CDT procedure are i n SPECTROMETRY the results section. MAGNESIUM Routine 02/23/2009 9:19 AM Results f or this CDT procedure are i n the results section. LIPID PROFILE Routine 02/23/2009 9:19 AM Results for this CDT procedure are i n the results section. LACTATE DEHYDROGENASE Routine 02/23/2009 9:19 AM Results for this TOTAL CDT procedure are i n the results section. COMPREHENSIVE Routine 02/23/2009 9:19 AM Results for this METABOLIC PANEL CDT procedure ar e in the results section. CMV QUANTITATIVE, PCR Routine 02/23/2009 9:19 AM Results for this CDT procedure are i n the results section. BK VIRUS QUANTITATIVE, Routine 02/23/2009 9:19 AM Results for this PCR CDT procedure are i n the results section. documented in 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 Results (ABNORMAL) Lipid panel (02/23/2009 9:19 AM CDT) P athologist Signature Cholesterol 186 0 - 200 [place] mg/dL Comment: LDL Cholesterol is the primary guide to therapy: LDL-cholesterol goal in high risk patients is <100 mg/dL and in very high risk patients is <70 mg/dL. The NCEP recommends further evaluation of: patients with cholesterol <200 mg/dL if additionalrisk factors are present, cholesterol >240 mg/dL, triglycerides >150 mg/dL, or HDL <40 mg/dL. Triglycerides 286 (H) 0 - 150 mg/dL MISYS HDL Cholesterol 38 (L) 50 - 110 mg/dL MISYS LDL Cholesterol Calculated 92 0 - 129 mg/dL MISYS VLDL-Cholesterol 57 (H) 0 - 30 mg/dL MISYS Cholesterol/HDL Ratio 5.0 0.0 - 5.0 MISYS Specimen Anatomical Collection Method Collection Time Receive d Time (Source) Location / / Volume Laterality 02/23/2009 9:19 AM 9 8:46 CDT AM CDT Maxi Basilio MD, MD LAB - BLOOD ORDERABLES Performing Organization Address City/State/ZIP Code Phon e Number MISYS CBC with platelets differential (02/23/2009 9:19 AM CDT) Patholo gist Method Time Signature MCV 84 78 - 100 MISYS fl MCH 27.4 26.5 - MISYS 33.0 pg MCHC 32.7 31.5 - MISYS 36.5 g/dL RDW 14.5 10.0 - MISYS 15.0 % WBC 5.9 4.0 - MISYS 11.0 10e9/L RBC Count 4.64 3.8 - 5.2 MISYS 10e12/L Hemoglobin 12.7 11.7 - MISYS 15.7 g/dL Hematocrit 38.8 35.0 - MISYS 47.0 % % Neutrophils 58 40 - 75 % MISYS % Lymphocytes 28 20 - 48 % MISYS % Monocytes 10 0 - 12 % MISYS % Eosinophils 3 0 - 6 % MISYS % Basophils 1 0 - 2 % MISYS Platelet Count 151 150 - 450 MIS[place] 10e9/L Absolute 3.4 1.6 - 8.3 MISYS Neutrophil 10e9/L Absolute 1.7 0.8 - 5.3 MISYS Lymphocytes 10e9/L Absolute 0.6 0.0 - 1.3 MISYS Monocytes 10e9/L Absolute 0.2 0.0 - 0.7 MISYS Eosinophils 10e9/L Absolute 0.0 0.0 - 0.2 MISYS Basophils 10e9/L Diff Method Automated MISYS Method Specimen Anatomical Collection Method Collection Time Receive d Time (Source) Location / / Volume Laterality 02/23/2009 9:19 AM 9 8:46 CDT AM CDT Maxi Basilio MD, LAB - BLOOD ORDERABLES Performing Organization Address City/State/ZIP Code Phon e Number MISYS (ABNORMAL) Comprehensive metabolic panel (02/23/2009 9:19 AM CDT) Analysis Performed At Patho logist Time Signature Sodium 139 133 - 144 MISYS mmol/L Potassium 3.8 3.4 - 5.3 MISYS mmol/L Chloride 107 94 - 109 MISYS mmol/L Carbon Dioxide 26 20 - 32 MISYS mmol/L Glucose 96 60 - 99 MISYS mg/dL Urea Nitrogen 14 5 - 24 MISYS mg/dL Creatinine 1.16 (H) 0.52 - MISYS 1.04 mg/dL Comment: New IDMS-traceable calibration beginning 12/19/07 GFR Estimate 50 (L) >60 mL/min/1.7m2 MISYS GFR Estimate If Black 60 (L) >60 mL/min/1.7m2 M ISYS Calcium 9.9 8.5 - 10.4 mg/dL MISYS AST 36 0 - 45 U/L MISYS Protein Total 6.9 6.8 - 8.8 g/dL MISYS Anion Gap 6 6 - 17 mmol/L MISYS Albumin 4.1 3.9 - 5.1 g/dL MISYS ALT 34 0 - 50 U/L MISYS Alkaline Phosphatase 131 40 - 150 U/L MISYS Bilirubin Total 0.2 0.2 - 1.3 mg/dL MISYS Specimen Anatomical Collection Method Collection Time Receive d Time (Source) Location / / Volume Laterality 02/23/2009 9:19 AM 9 8:46 CDT AM CDT Maxi Basilio MD, MD LAB - BLOOD ORDERABLES Performing Organization Address [facility] Phon e Number MISYS Mycophenolic acid (02/23/2009 9:19 AM CDT) Patholo gist Method Time Signature Last Dose [id number] MISYS Mycophenolic Acid 00 Mycophenolic Acid 1.41 1.00 - MISYS Mg/L 3.50 mg/L MPA Glucuronide 53.0 30.0 - MISYS Level 95.0 mg/L Specimen Anatomical Collection Method Collection Time Receive d Time (Source) Location / / Volume Laterality 02/23/2009 9:19 AM 9 8:46 CDT AM CDT Maxi Basilio MD, MD LAB - BLOOD ORDERABLES Performing Organization Address [facility] Phon e Number MISYS Phosphorus (02/23/2009 9:19 AM CDT) P athologist Signature Phosphorus 3.3 2.5 - 4.5 MISYS mg/dL Specimen Anatomical Collection Method Collection Time Receive d Time (Source) Location / / Volume Laterality 02/23/2009 9:19 AM 9 8:46 CDT AM CDT Maxi Basilio MD, MD LAB - BLOOD ORDERABLES Performing Organization Address [facility] Phon e Number MISYS (ABNORMAL) Sirolimus level (02/23/2009 9:19 AM CDT) Analysis Performed At Patho logist Time Signature Sirolimus 18.3 (H) 5.0 - 15.0 MISYS Level ug/L Sirolimus Last [id number] MISYS Dose 0 Specimen Anatomical Collection Method Collection Time Receive d Time (Source) Location / / Volume Laterality 02/23/2009 9:19 AM 9 8:46 CDT AM CDT Maxi Basilio MD, MD LAB - BLOOD ORDERABLES Performing Organization Address [facility] Phon e Number MISYS Lactate dehydrogenase total (02/23/2009 9:19 AM CDT) P athologist Signature LD 687 325 - 750 MISYS U/L Specimen Anatomical Collection Method Collection Time Receive d Time (Source) Location / / Volume Laterality 02/23/2009 9:19 AM 9 1:40 CDT PM CDT Maxi Basilio MD, MD LAB - BLOOD ORDERABLES Performing Organization Address City/[facility]/ZIP Code Phon e Number MISYS Magnesium (02/23/2009 9:19 AM CDT) athologist Signature Magnesium 2.2 1.6 - 2.3 MISYS mg/dL Specimen Anatomical Collection Method Collection Time Receive d Time (Source) Location / / Volume Laterality 02/23/2009 9:19 AM 9 1:40 CDT PM CDT Maxi Basilio MD, MD LAB - BLOOD ORDERABLES Performing Organization Address City/[facility] Code Phon e Number MISYS BK virus PCR quantitative (02/23/2009 9:19 AM CDT) [facility] [employer] Method Time Signature BK Virus <1000 <1000 MISYS Result copies/mL BK Virus Plasma, EDTA MISYS Specimen anticoagulant BK Virus Log <3.0 <3.0 Log MISYS copies/mL Comment: The lower limit of detection for this as say is 1000 copies/mL. ??Real-time TaqMan PCR was performed using BK primers and probe for the detection of a 90 bp portion of the [employer] 1 gene. ??The perform ance characteristics were validated by the [facility] [address], [place]. Specimen Anatomical Collection Method Collection Time Receive d Time (Source) Location / / Volume Laterality 02/23/2009 9:19 AM 9 8:46 CDT AM CDT Maxi Basilio MD, MD LAB - MICRO GENERAL ORDERABL ES Performing Organization Address City/State/ZIP Code Phon e Number MISYS CMV DNA quantification (02/23/2009 9:19 AM CDT) Component Value Ref Test Analysis Performed At [facility] [employer] Range Method Time Signature CMV DNA Whole blood, MISYS Quantitation EDTA Specimen anticoagulant Comment: CORRECTED ON 02/24 AT 0804: PRE VIOUSLY REPORTED Plasma, EDTA anticoagulant CMV Quantitative <100 <100 Copies/mL MISYS Comment: No CMV DNA detected. CMV QT Log <2.0 <2.0 Log copies/mL MISYS Comment: The Cytomegalovirus DNA Quantitation ass ay is a real-time polymerase chain reaction (PCR) utilizing analyte specif ic reagents manufactured by [employer]. Analyte Specific Reagents (ASRs) are used in many laboratory tests necessary for standard medical ca re and generally do not require FDA approval. This test was developed and its perform ance characteristics determined by [facility]. ??It has not been cleared or approved by the US Food and Drug Administration. Specimen Anatomical Collection Method Collection Time Receive d Time (Source) Location / / Volume Laterality 02/23/2009 9:19 AM 9 8:46 CDT AM CDT Maxi Basilio MD, LAB - MICRO GENERAL ORDERABL ES Performing Organization Address City/State/ZIP Code Phon e Number MISYS documented in 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 Visit Diagnoses Not on filedocumented in 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
--- OUTSIDE RECORDS SUMMARY | 2022-05-25 12:55 | XMS_ITS | Encounter Summary ---
:1960 Author Organization [place] Address [facility] [place] [address] Care Team Providers Name Role Phone Unavailable Primary Care Provider Unavailable Encounter Details Date Type Department Care Team Description 12/28/2007 Emergency room [facility] Jatin Schultz MD [facility] EMERGENCY PHY [place] Results [address] [place], [place] [address] (Wo rk) Social History Tobacco Use Types Packs/Day Years Used Date Never Assessed Sex Assigned at Date Recorded Not on file documented as of 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 Progress Notes Jatin Schultz - 01/07/2008 7:20 AM CDT FINAL CHIEF COMPLAINT: Abdominal pain. HISTORY OF PRESENT ILLNESS: Shabnam Wray is a 47-year-old female who reports a one day history of worsening global abdominal pain. She believes she may have peritonitis. This feels similar to when she has had it before. She does do daily peritoneal dialysis and has been feeling otherwise well. Shefelt chilled last night but no measured fever. She has felt nauseous but has not vomited. She does feel short of breath as it hurts her belly to take a deep breath. She denies any diarrhea, no urinary symptoms. No other problems or concerns. PAST MEDICAL HISTORY: Hypertension, renal failure, daily peritoneal dialysis. MEDICATIONS: An antihypertensive which she could not recall the name of and Renagel. ALLERGIES: No known medical allergies. FAMILY HISTORY: No significant family history. SOCIAL HISTORY: She is visiting here from [place], will be returning Sunday morning. She is a pack perday smoker, no current use of alcohol or other drugs. REVIEW OF SYSTEMS: All other systems reviewed and negative, as described in HPI. PHYSICAL EXAMINATION: VITAL SIGNS: Oral temperature is 96.4, pulse 89, respirations 24, blood pressure 147/91, pulse ox 98% on room air. GENERAL: She is alert and oriented x3, lying on cart, appears uncomfortable. HEENT: Head is atraumatic, normocephalic. No nasal discharge. Oropharynx is clear with moist mucous membranes. No erythema, edema or exudate. NECK: Supple without lymphadenopathy. LUNGS: Clear to auscultation bilaterally without wheezes, rales or rhonchi. CORONARY: Regular rate,no murmurs, gallops or rubs. ABDOMEN: Soft. She is diffusely tender without rebound or guarding. She has a dialysis catheter coming out of the right lower quadrant. The site itself appears noninflamed. More of her discomfort is across the upper abdomen as opposed to the lower abdomen. EXTREMITIES: Without cyanosis or edema. SKIN: Warm and dry without rash. NEUROLOGIC: Nonfocal. LABORATORY EXAMINATION: White count slightly elevated at 12.5 with a left shifted differential, hemoglobin is 12.8, hematocrit 36.5, platelets 269,000. Sodium is 135, potassium 3.5, chloride 92, bicarbonate 26, BUN is elevated at 47 and creatinine is 9.03 consistent with her chronic renal failure. Total bilirubin is 0.7, alkaline phosphatase 18, AST 24, lipase is 35. ASSESSMENT/PLAN/EMERGENCY DEPARTMENT COURSE: I suspect patient has a peritonitis related to her peritoneal dialysis. She did bring in her fluid from this morning and it appears quite cloudy. It was sent for fluid analysis. An IV was started, she received morphine in 4 mg increments and 4 of Zofran for nausea with significant improvement of her pain and symptoms. I did give her a gram of IV vancomycin. In discussion with her she usually is able to manage this as an outpatient but will need doses of vancomycin to instill into her dialysate fluid. She weighs approximately 100 kilograms. I spoke with the pharmacy and was able to arrange for her to take to 5 gram doses of vancomycin home with her, which she will use today and tomorrow with her dialysis. She is planning on returning to [place] Sunday morning and will follow up with her renal doctor that morning for further treatment as needed. I did discuss with her if her pain should get worse, she is vomiting or has other problems or concerns, should return for reevaluation. She states she understood these instructions and was discharged in satisfactory condition. DIAGNOSIS: Peritonitis secondary to peritoneal dialysis and chronic renal failure. Electronically signed on 01/07/2008 07:19 by Ann SCHULTZ MD [place]: [email or web address] Name: SHABNAM WRAY MRN: [id number] Account: [id number] : 1960 Visit Date: 12/28/2007 Document: [id number] cc: Primary documented in 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 Plan of Treatment Not on filedocumented as of 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 Visit Diagnoses Not on filedocumented in 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
--- OUTSIDE RECORDS SUMMARY | 2022-05-25 12:55 | XMS_ITS | Encounter Summary ---
:1960 Author Organization [place] Address [facility] [place] [address] Care Team Providers Name Role Phone Unavailable Primary Care Provider Unavailable Encounter Details Date Type Department Care Team Description 03/23/2009 Historic Results INTERFACED REPORT Ravi Basilio MD, MD [facility] [address] [place], [place] [address] Social History Tobacco Use Types Packs/Day Years Used Date Never Assessed Sex Assigned at Date Recorded Not on file documented as of 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 Plan of Treatment Not on filedocumented as of 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 Procedures Procedure Name Priority Date/Time Associated Comments Diagnosis CBC WITH PLATELETS & Routine 03/23/2009 9:35 AM R esults for this DIFFERENTIAL CDT procedure are i n the results section. SIROLIMUS BY TANDEM Routine 03/23/2009 9:35 AM Re sults for this MASS SPECTROMETRY CDT procedure are in the results section. PHOSPHORUS Routine 03/23/2009 9:35 AM Results f or this CDT procedure are i n the results section. MYCOPHENOLIC ACID BY Routine 03/23/2009 9:35 AM R esults for this TANDEM MASS CDT procedure are i n SPECTROMETRY the results section. CMV QUANTITATIVE, PCR Routine 03/23/2009 9:35 AM Results for this CDT procedure are i n the results section. BK VIRUS Routine 03/23/2009 9:35 AM Results f or this QUANTITATIVE, PCR CDT procedure are in the results section. BASIC METABOLIC PANEL Routine 03/23/2009 9:35 AM Results for this CDT procedure are i n the results section. documented in 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 Results (ABNORMAL) Basic metabolic panel (03/23/2009 9:35 AM CDT) Analysis Performed At Patho logist Time Signature Sodium 139 133 - 144 MISYS mmol/L Potassium 3.9 3.4 - 5.3 MISYS mmol/L Chloride 107 94 - 109 MISYS mmol/L Carbon Dioxide 26 20 - 32 MISYS mmol/L Glucose 98 60 - 99 MISYS mg/dL Urea Nitrogen 21 5 - 24 MISYS mg/dL Creatinine 1.10 (H) 0.52 - MISYS 1.04 mg/dL Comment: New IDMS-traceable calibration beginning 12/19/07 GFR Estimate 53 (L) >60 mL/min/1.7m2 MISYS GFR Estimate If Black 64 >60 mL/min/1.7m2 M ISYS Calcium 9.7 8.5 - 10.4 mg/dL MISYS Anion Gap 7 6 - 17 mmol/L MISYS Specimen Anatomical Collection Method Collection Time Receive d Time (Source) Location / / Volume Laterality 03/23/2009 9:35 AM 9 9:10 CDT AM CDT Maxi Basilio MD, MD LAB - BLOOD ORDERABLES Performing Organization Address City/State/ZIP Code Phon e Number MISYS (ABNORMAL) CBC with platelets differential (03/23/2009 9:35 AM CDT) [facility] gist Method Time Signature MCV 83 78 - 100 MISYS fl MCH 27.0 26.5 - MISYS 33.0 pg MCHC 32.7 31.5 - MISYS 36.5 g/dL RDW 15.3 (H) 10.0 - MISYS 15.0 % WBC 7.0 4.0 - MISYS 11.0 10e9/L RBC Count 4.85 3.8 - 5.2 MISYS 10e12/L Hemoglobin 13.1 11.7 - MISYS 15.7 g/dL Hematocrit 40.1 35.0 - MISYS 47.0 % % Neutrophils 64 40 - 75 % MISYS % Lymphocytes 25 20 - 48 % MISYS % Monocytes 8 0 - 12 % MISYS % Eosinophils 3 0 - 6 % MISYS % Basophils 0 0 - 2 % MISYS Platelet Count 151 150 - 450 MISYS 10e9/L Absolute 4.4 1.6 - 8.3 MISYS Neutrophil 10e9/L Absolute 1.8 0.8 - 5.3 MISYS Lymphocytes 10e9/L Absolute 0.6 0.0 - 1.3 MISYS Monocytes 10e9/L Absolute 0.2 0.0 - 0.7 MISYS Eosinophils 10e9/L Absolute 0.0 0.0 - 0.2 MISYS Basophils 10e9/L Diff Method Automated MISYS Method Specimen Anatomical Collection Method Collection Time Receive d Time (Source) Location / / Volume Laterality 03/23/2009 9:35 AM 9 9:11 CDT AM CDT Maxi Basilio MD, MD LAB - BLOOD ORDERABLES Performing Organization Address City/[facility] Phon e Number MISYS Mycophenolic acid (03/23/2009 9:35 AM CDT) Patholo gist Method Time Signature Last Dose [id number] MISYS Mycophenolic Acid 30 Mycophenolic Acid 2.70 1.00 - MISYS Mg/L 3.50 mg/L MPA Glucuronide 76.3 30.0 - MISYS Level 95.0 mg/L Specimen Anatomical Collection Method Collection Time Receive d Time (Source) Location / / Volume Laterality 03/23/2009 9:35 AM 9 9:11 CDT AM CDT Maxi Basilio MD, MD LAB - BLOOD ORDERABLES Performing Organization Address City/[facility] Phon e Number MISYS Phosphorus (03/23/2009 9:35 AM CDT) P athologist Signature Phosphorus 3.6 2.5 - 4.5 MISYS mg/dL Specimen Anatomical Collection Method Collection Time Receive d Time (Source) Location / / Volume Laterality 03/23/2009 9:35 AM 9 9:11 CDT AM CDT Maxi Basilio MD, MD LAB - BLOOD ORDERABLES Performing Organization Address City/[facility] Phon e Number MISYS Sirolimus level (03/23/2009 9:35 AM CDT) Analysis Performed At Patho logist Time Signature Sirolimus 10.0 5.0 - 15.0 MISYS Level ug/L Sirolimus Last [id number] MISYS Dose 0 Specimen Anatomical Collection Method Collection Time Receive d Time (Source) Location / / Volume Laterality 03/23/2009 9:35 AM 9 9:11 CDT AM CDT Maxi Basilio MD, MD LAB - BLOOD ORDERABLES Performing Organization Address City/State/ZIP Code Phon e Number MISYS BK virus PCR quantitative (03/23/2009 9:35 AM CDT) [facility] Method Time Signature BK Virus <1000 <1000 MISYS Result copies/mL BK Virus Plasma, EDTA MISYS Specimen anticoagulant BK Virus Log <3.0 <3.0 Log MISYS copies/mL Comment: The lower limit of detection for this as say is 1000 copies/mL. ??Real-time TaqMan PCR was performed using BK primers and probe for the detection of a 90 bp portion of the MECH[employer]IT REPAIRER 1 gene. ??The perform ance characteristics were validated by the [facility] [address], [place]. Specimen Anatomical Collection Method Collection Time Receive d Time (Source) Location / / Volume Laterality 03/23/2009 9:35 AM 9 9:10 CDT AM CDT Maxi Basilio MD, MD LAB - MICRO GENERAL ORDERABL ES Performing Organization Address City/[facility] Phon e Number MISYS CMV DNA quantification (03/23/2009 9:35 AM CDT) Component Value Ref Test Analysis Performed At [facility] Range Method Time Signature CMV DNA Plasma, EDTA MISYS Quantitation anticoagulant Specimen CMV <100 <100 MISYS Quantitative Copies/m L Comment: No CMV DNA detected. CMV QT Log <2.0 <2.0 Log copies/mL MISYS Comment: The Cytomegalovirus DNA Quantitation ass ay is a real-time polymerase chain reaction (PCR) utilizing analyte specif ic reagents manufactured by [employer]. Analyte Specific Reagents (ASRs) are used in many laboratory tests necessary for standard medical ca re and generally do not require FDA approval. This test was developed and its perform ance characteristics determined by [facility]. ??It has not been cleared or approved by the US Food and Drug Administration. Specimen Anatomical Collection Method Collection Time Receive d Time (Source) Location / / Volume Laterality 03/23/2009 9:35 AM 9 9:11 CDT AM CDT Maxi Basilio MD, MD LAB - MICRO GENERAL ORDERABL ES Performing Organization Address City/[facility] Phon e Number MISYS documented in 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 Visit Diagnoses Not on filedocumented in 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
--- OUTSIDE RECORDS SUMMARY | 2022-05-25 12:55 | XMS_ITS | Encounter Summary ---
:1960 Author Organization [place] Address [facility] [place] [address] Care Team Providers Name Role Phone Unavailable Primary Care Provider Unavailable Encounter Details Date Type Department Care Team Description 03/10/2009 Historic Results INTERFACED REPORT Ravi Basilio MD, MD [facility] [address] [id number] 195 Social History Tobacco Use Types Packs/Day Years Used Date Never Assessed Sex Assigned at Date Recorded Not on file documented as of 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 Plan of Treatment Not on filedocumented as of 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 Procedures Procedure Name Priority Date/Time Associated Comments Diagnosis CBC WITH PLATELETS & Routine 03/10/2009 8:50 AM R esults for this DIFFERENTIAL CDT procedure are i n the results section. SIROLIMUS BY TANDEM Routine 03/10/2009 8:50 AM Re sults for this MASS SPECTROMETRY CDT procedure are in the results section. PHOSPHORUS Routine 03/10/2009 8:50 AM Results f or this CDT procedure are i n the results section. MYCOPHENOLIC ACID BY Routine 03/10/2009 8:50 AM R esults for this TANDEM MASS CDT procedure are i n SPECTROMETRY the results section. BASIC METABOLIC PANEL Routine 03/10/2009 8:50 AM Results for this CDT procedure are i n the results section. documented in 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 Results (ABNORMAL) Basic metabolic panel (03/10/2009 8:50 AM CDT) Analysis Performed At Patho logist Time Signature Sodium 137 133 - 144 [facility] mmol/L Potassium 4.4 3.4 - 5.3 [facility] mmol/L Chloride 104 94 - 109 [facility] mmol/L Carbon Dioxide 26 20 - 32 [facility] mmol/L Glucose 99 60 - 99 [facility] mg/dL Urea Nitrogen 17 5 - 24 [facility] mg/dL Creatinine 1.25 (H) 0.52 - [facility] 1.04 mg/dL Comment: New IDMS-traceable calibration beginning 12/19/07 GFR Estimate 46 (L) >60 mL/min/1.7m2 [facility] GFR Estimate If Black 55 (L) >60 mL/min/1.7m2 [facility] Calcium 10.0 8.5 - 10.4 mg/dL [facility] Anion Gap 7 6 - 17 mmol/L [facility] Specimen Anatomical Collection Method Collection Time Receive d Time (Source) Location / / Volume Laterality 03/10/2009 8:50 AM 9 8:41 CDT AM CDT Maxi Basilio MD, LAB - BLOOD ORDERABLES Performing Organization Address City/State/ZIP Code Phon e Number [facility] CBC with platelets differential (03/10/2009 8:50 AM CDT) [facility] gist Method Time Signature MCV 82 78 - 100 [facility] fl MCH 27.3 26.5 - [facility] 33.0 pg MCHC 33.3 31.5 - [facility] 36.5 g/dL RDW 14.9 10.0 - [facility] 15.0 % WBC 8.3 4.0 - [facility] 11.0 10e9/L RBC Count 4.98 3.8 - 5.2 [facility] 10e12/L Hemoglobin 13.6 11.7 - [facility] 15.7 g/dL Hematocrit 40.8 35.0 - [facility] 47.0 % % Neutrophils 65 40 - 75 % [facility] % Lymphocytes 21 20 - 48 % [facility] % Monocytes 11 0 - 12 % [facility] % Eosinophils 3 0 - 6 % [facility] % Basophils 0 0 - 2 % [facility] Platelet Count 213 150 - 450 [facility] 10e9/L Absolute 5.1 1.6 - 8.3 [facility] Neutrophil 10e9/L Absolute 1.7 0.8 - 5.3 [facility] Lymphocytes 10e9/L Absolute 0.8 0.0 - 1.3 [facility] Monocytes 10e9/L Absolute 0.2 0.0 - 0.7 [facility] Eosinophils 10e9/L Absolute 0.0 0.0 - 0.2 [facility] Basophils 10e9/L Diff Method Automated [facility] Method Specimen Anatomical Collection Method Collection Time Receive d Time (Source) Location / / Volume Laterality 03/10/2009 8:50 AM 9 8:41 CDT AM CDT Maxi Basilio MD, MD LAB - BLOOD ORDERABLES Performing Organization Address [facility] Phon e Number M[facility] Mycophenolic acid (03/10/2009 8:50 AM CDT) Patholo gist Method Time Signature Last Dose 2100 [facility] Mycophenolic Acid 02/2109 Mycophenolic Acid 1.36 1.00 - [facility] Mg/L 3.50 mg/L MPA Glucuronide 56.9 30.0 - [facility] Level 95.0 mg/L Specimen Anatomical Collection Method Collection Time Receive d Time (Source) Location / / Volume Laterality 03/10/2009 8:50 AM 9 8:41 CDT AM CDT Maxi Basilio MD, MD LAB - BLOOD ORDERABLES Performing Organization Address [facility] Phon e Number M[facility] Phosphorus (03/10/2009 8:50 AM CDT) P athologist Signature Phosphorus 3.7 2.5 - 4.5 [facility] mg/dL Specimen Anatomical Collection Method Collection Time Receive d Time (Source) Location / / Volume Laterality 03/10/2009 8:50 AM 9 8:41 CDT AM CDT Maxi Basilio MD, MD LAB - BLOOD ORDERABLES Performing Organization Address [facility] Phon e Number MIS[facility] Sirolimus level (03/10/2009 8:50 AM CDT) Analysis Performed At Patho logist Time Signature Sirolimus 6.1 5.0 - 15.0 [facility] Level ug/L Sirolimus Last 0900 [facility] Dose 03/09/09 Specimen Anatomical Collection Method Collection Time Receive d Time (Source) Location / / Volume Laterality 03/10/2009 8:50 AM 9 8:41 CDT AM CDT Maxi Basilio MD, MD LAB - BLOOD ORDERABLES Performing Organization Address City/[facility] Code Phon e Number [facility] documented in 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 Visit Diagnoses Not on filedocumented in 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
--- OUTSIDE RECORDS SUMMARY | 2022-05-25 12:55 | XMS_ITS | Encounter Summary ---
:1960 Author Organization [place] Address [address] [place] [id number] Care Team Providers Name Role Phone Unavailable Primary Care Provider Unavailable Encounter Details Date Type Department Care Team Description 12/28/2007 Historic Notes INTERFACED REPORT Interface, Transcript onMD Social History Tobacco Use Types Packs/Day Years Used Date Never Assessed Sex Assigned at Date Recorded Not on file documented as of 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 Progress Notes Interface, Pretzel Twister - 11/06/2010 10:30 PM CDT Allergies ?? No Known Allergies Basic Medication Information - History taken from:: Patient Medications (#1-10) - Medication: clonidine - Medication: renogel Discharge Orders Pharmacy - General Medications ?? Ondansetron -;ODT for ZOFRAN 4 mg dissolve tab(s) By Mouth Every 6 Hours PRN for Nausea/Vomiting Do not push through foil backing: PEEL BACK foil and GENTLY remove. Place on tongue immediately. Administration with liquid is unnecessary., , Active Pharmacy - Analgesics/NSAIDs ?? Hydrocodone/Acetaminophen 5/500 -;for VICODIN 1 to 2 tablet(s) By Mouth Every 4 Hours PRN for Pain (max 8 tabs/24 hours) Dispense #15 tabs Refills None, , Active Destination - Destination: Home. The above information was obtained from available resources. Review this list with your primary physician and take all medications as directed. NILES Bass (WILMER)[Signed 09:33] Authored: Allergies, Basic Medication Information, Medications (#1-10), Discharge Orders, Destination documented in 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 Plan of Treatment Not on filedocumented as of 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 Visit Diagnoses Not on filedocumented in 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
--- OUTSIDE RECORDS SUMMARY | 2022-05-25 12:57 | XMS_ITS | Clinical Summary ---
:1960 Author Organization [facility] Address [address] [place] [address] Care Team Providers Name Role Phone Elsewhere, Pcp Primary Care Provider Unavailable Source Comments Patient records contain information from all sites at [facility]. For routine questions regarding patient records, call [phone] during business hours, M-F 8:00 AM - 5:00 PM Central Time. Record requests for emergency care only can be directed to [phone] at any time.[facility] Allergies Active Allergy Reactions Severity Noted Date Comments Epoetin Rolando GI intolerance Medium 11/03/2016 ERYTHROPOIETI N- vomiting Latex Other (see comments) Medium 03/26/2012 Eczema Pain Medicine Other (see comments) Medium 01/20/2020 Patien t unsure of what medication it w as. Had a pain med given intravenously a nd got very nauseous Medications Medication Sig Dispensed Refills Start End Status Date Date hydrocortisone Apply 1 0 09/18/19 Activ e (for_HYTONE) 2.5 % application 18 cream topically daily as needed (Eczema). gabapentin TAKE 3 CAPSULES 450 capsule 3 04/15/20 A ctive (NEURONTIN) 100 mg BY MOUTH IN THE 21 capsule MORNING AND 2 CAPSULES IN THE EVENING acetaminophen Take 2 tablets 100 tablet 0 04/07/20 Active (TYLENOL) 325 mg (650 mg total) 22 tablet by mouth every 6 (six) hours as needed for pain. Do not exceed 3000mg in 24 hours. multivitamin tablet Take 1 tablet 30 tablet 3 04/07/20 Active by mouth daily. 22 pantoprazole Take 1 tablet 30 tablet 0 04/07/20 Act sal (PROTONIX) 40 mg EC (40 mg total) 22 tablet by mouth every morning before breakfast. rosuvastatin Take 1 tablet 90 tablet 3 04/07/20 Act sal (CRESTOR) 5 mg (5 mg total) by 22 023 tablet mouth at bedtime. sertraline (ZOLOFT) Take 1 tablet 90 tablet 3 04/07/20 Active 25 mg tablet (25 mg total) 22 023 by mouth at bedtime. potassium Take 1 tablet 60 tablet 0 05/02/20 Active phosphate-sodium (250 mg total) 022 phosphate (K-PHOS by mouth 2 NEUTRAL) 250 mg (two) times a tabletIndications: day. E87.6 Immunodeficiency hypokalemia; (FORM[facility]LY [facility]), z94.0 kidney Hypophosphatemia, transplant Complication Kidney Transplant (FORMERLY [facility]) mycophenolate Take 3 capsules 180 capsule 1 05/02/20 Active (CELLCEPT) 250 mg (750 mg total) 22 capsuleIndications: by mouth every Immunodeficiency 12 (twelve) (HCC), Complication hours. Take Kidney Transplant medication on ([facility]) an empty stomach. Do not break, cut, or open capsules. predniSONE Take 1 tablet 30 tablet 11 05/02/20 Activ e (DELTASONE) 5 mg (5 mg total) by 22 tabletIndications: mouth daily. Immunodeficiency 04/11-04/28: 4 (HCC), Complication tabs, Kidney Transplant 04/29-05/05: 3 (HCC) tabs, 05/06-05/12: 2 tabs, 05/13 and after: 1 tab daily sulfamethoxazole-tri Take 1 tablet 30 tablet 5 05/02/20 Active methoprim by mouth daily. 22 (BACTRIM,SEPTRA) Stop date: 400-80 mg per 10/08/22. Dose tabletIndications: adjusted based Immunodeficiency on renal (FORM[facility]), Complication function. Kidney Transplant (FORM[facility]) tacrolimus (PROGRAF) Take 3 capsules 180 capsule 11 05/02/20 0 Active 1 mg (3 mg total) by 023 capsuleIndications: mouth every 12 Immunodeficiency (twelve) hours. ([facility]LY [facility]), Complication Dose may change Kidney Transplant based on ([facility]) levels. valGANciclovir Take 1 tablet 30 tablet 2 05/02/20 A ctive (VALCYTE) 450 mg (450 mg total) 22 tabletIndications: by mouth daily. Immunodeficiency Dose may be ([facility]), Complication adjusted based Kidney Transplant on kidney ([facility]) function. Stop date: 07/08/22 magnesium oxide Take 1 tablet 60 tablet 0 05/02/20 Active (MAG-OX) 400 mg (400 mg total) 22 022 (241.3 mg magnesium) by mouth 2 tabletIndications: (two) times a Hypomagnesemia day before breakfast and dinner. nebivoloL (BYSTOLIC) Take 2 tablets 60 tablet 11 05/05/2004/20 Active 5 mg (10 mg total) 22 023 tabletIndications: by mouth daily. Transplant Renal (HCC) nebivoloL (BYSTOLIC) Take 5 mg by 0 Discontinued 5 mg tablet mouth daily. 022 mycophenolate Take 3 capsules 180 capsule 1 04/07/20 Discontinued (CELLCEPT) 250 mg (750 mg total) 22 022 (Reorder) capsule by mouth every 12 (twelve) hours. Take medication on an empty stomach. Do not break, cut, or open capsules. sennosides-docusate Take 1-2 100 tablet 0 04/07/20 Discontinued sodium (Senna with tablets by 022 Docusate Sodium) mouth 2 (two) 8.6-50 mg per tablet times a day. Take while on any narcotics, or for constipation. Stop for diarrhea. predniSONE Take 1-4 120 tablet 1 04/07/20 Disconti nued (DELTASONE) 5 mg tablets (5-20 22 022 (Reorder) tablet mg total) by mouth daily. 04/11-04/28: 4 tabs, 04/29-05/05: 3 tabs, 05/06-05/12: 2 tabs, 05/13 and after: 1 tab daily magnesium oxide Take 2 tablets 60 tablet 0 04/08/20 Discontinued (MAG-OX) 400 mg (800 mg total) 22 022 (241.3 mg magnesium) by mouth every tablet morning before breakfast. sulfamethoxazole-tri Take 1 tablet 30 tablet 5 04/10/2004/28 Discontinued methoprim by mouth 3 22 022 (BACTRIM,SEPTRA) (three) times a 400-80 mg per tablet week. Stop date: 10/08/22. Dose adjusted based on renal function. valGANciclovir Take 1 tablet 30 tablet 2 04/10/20 D iscontinued (VALCYTE) 450 mg (450 mg total) 22 022 tablet by mouth 3 (three) times a week. Dose may be adjusted based on kidney function. Stop date: 07/08/22 oxyCODONE Take 1 tablet 18 tablet 0 04/09/20 Discon tinued (ROXICODONE) 5 mg (5 mg total) by 22 022 immediate release mouth every 4 tabletIndications: (four) hours as Acute Pain needed for pain Indication: Acute Pain. potassium chloride Take 2 tablets 28 tablet 0 04/21/20 Discontinued (KLOR-CON M/KDUR) 20 (40 mEq total) 22 022 mEq ER tablet by mouth 2 (two) times a day with meals for 7 days. tacrolimus (PROGRAF) Take 3 capsules 180 capsule 1 04/21/20 0 Discontinued 1 mg capsule (3 mg total) by 22 022 ( Reorder) mouth every 12 (twelve) hours. Dose may change based on levels. magnesium oxide Take 1 tablet 60 tablet 0 04/28/20 Discontinued (MAG-OX) 400 mg (400 mg total) 22 022 (Reorder) (241.3 mg magnesium) by mouth 2 tablet (two) times a day before breakfast and dinner. sulfamethoxazole-tri Take 1 tablet 30 tablet 5 04/28/2005/02 Discontinued methoprim by mouth daily. 22 022 (Reo rder) (BACTRIM,SEPTRA) Stop date: 400-80 mg per tablet 10/08/22. Dose adjusted based on renal function. valGANciclovir Take 1 tablet 30 tablet 2 04/28/20 D iscontinued (VALCYTE) 450 mg (450 mg total) 22 022 (Reorder) tablet by mouth daily. Dose may be adjusted based on kidney function. Stop date: 07/08/22 potassium Take 1 tablet 60 tablet 0 04/28/20 Discon tinued phosphate-sodium (250 mg total) 22 022 (Reorder) phosphate (K-PHOS by mouth 2 NEUTRAL) 250 mg (two) times a tablet day. nebivoloL (BYSTOLIC) Take 1 tablet 30 tablet 11 05/02/2005/05 Discontinued 5 mg (5 mg total) by (Dos e tabletIndications: mouth daily. adjustment) Transplant Renal (HCC) Active Problems Problem Noted Date Hypomagnesemia 04/28/2022 Hypophosphatemia 04/28/2022 Immunodeficiency 04/13/2022 Hernia Abdominal Wall 12/12/2021 Smoking Tobacco Use Personal History 04/08/2021 COVID-19 Infection 11/26/2020 Pain Neuropathic 04/05/2020 Infection Urinary Tract Recurrent 09/16/2019 Obstruction Ureteropelvic 09/08/2019 Overview: Added automatically from request for darrion naik [id number] Thombosis Arteriovenous Fistula Initial 05/30/2019 Failure Renal End Stage 05/06/2019 Complication Dialysis Fistula Subsequent 06/26/2018 Obstruction Ureter 04/03/2018 Overview: Added automatically from request for darrion naik [id number] Depression Major One Episode Full Remission 09/13/2017 Chronic Kidney Disease NOS 08/11/2017 Chronic Kidney Disease Stage 5 Glomerular Filtration R ate Less Than 15 04/18/2017 Chronic Kidney Disease Stage 4 Glomerular Filtration R ate 15-29 09/27/2016 Hyperlipidemia 03/27/2012 Transplant Renal 03/27/2012 Hypertension And Chronic Kidney Disease Stage 1 To 4 0 03/27/2012 Resolved Problems Problem Noted Date Resolved Date Hyperkalemia 04/07/2022 04/26/2022 Ureteral Stent Exchange 09/15/2019 04/26/2022 Complication Dialysis Device Subsequent 04/25/2019 04/26/2022 Anticoagulant Therapy 04/25/2019 04/26/2022 Chronic Failure Renal End Stage Renal Disease Dialysis 04/1004/26/2022 Dependent Overview: Added automatically from request for darrion naik [id number] Chronic Kidney Disease Stage 3 Glomerular Filtration Rate 30 To 05/05/2015 02/11/2019 59 Complication Kidney Transplant 11/12/2014 2 Diabetes Mellitus Type 2 03/27/2012 02/11/2019 Pretransplant Recipient Evaluation Exam 04/13/2022 Encounters Date Type Specialty Care Team Description 05/24/2022 Clinical Transplant Karmercyen, Labs Only (Cregrant john) Communication Stephanie Bruno R.N. 05/23/2022 Clinical Transplant Charity Gutiérrez, Tacrolimus A djustment Communication R.Milady., C.C.T.C. Protocol 05/22/2022 Orders Only Transplant External, Ordering Provider, M.D. 05/22/2022 Orders Only Transplant External, Ordering Provider, M.D. 05/22/2022 Orders Only Transplant External, Ordering Provider, M.D. 05/15/2022 Orders Only Transplant External, Ordering Provider, M.D. 05/11/2022 Clinical Transplant Burak, Tacrolimus Adju stment Communication Pretty Moses, Protocol M.S.N., R.N. 05/08/2022 Orders Only Transplant External, Ordering Provider, M.D. 05/08/2022 Orders Only Transplant External, Ordering Provider, M.D. 05/08/2022 Orders Only Transplant External, Ordering Provider, M.D. 05/08/2022 Orders Only Transplant External, Ordering Provider, M.D. 05/05/2022 Orders Only Pharmacy An Saleem 05/05/2022 Refill Transplant Charity Gutiérrez, Med Refill R.N., C.C.T.C. 05/04/2022 Orders Only Pharmacy Sary Nye 05/03/2022 Clinical Transplant Kristen, Communication Sandra Belle R.N., C.C.T.C. 05/02/2022 Refill Transplant Tamire Jeovanny Med Refill K, ENGINEER TECHNICAL STAFF, C.N.P., M.S.N. 05/02/2022 Refill Transplant Charity Gutiérrez, Med Refill R.N., C.C.T.C. 05/02/2022 Refill Transplant Tamire, Jeovanny Med Refill K, ENGINEER TECHNICAL STAFF, C.N.P., M.S.N. 05/02/2022 Orders Only Transplant Sandra Peterson R.N., C.C.T.C. 05/02/2022 Clinical Transplant Basballe, Warm Handoff Communication Sandra Belle R.N., C.C.T.C. 05/02/2022 Orders Only Pharmacy Grant Holley 05/02/2022 Refill Transplant [place] Charity A, Med Refill R.N., C.C.T.C. 05/01/2022 Hospital Encounter Laboratory [place] nt Renal (FORM[facility]) Medicine Mukund Neves 05/01/2022 Clinical Transplant Linkrystal, Communication Soraya Mascorro P.A.-C., M.S. 05/01/2022 Orders Only Transplant Teresa Morales Hyperlipidemia (Primary Dx); R, R.N. Immunodeficienc y (FORM[facility]LY [facility]); Transplant Jessica l ([facility]); High Risk Medic ation 05/01/2022 Orders Only Transplant Gavi Nicholas P.A.-C., M.S. 05/01/2022 Clinical Transplant Prior Burak Auth for Communication Pretty A, Tacrolimus M.S.N., R.N. 05/01/2022 Orders Only Transplant Tony Rubalcava M.B., Ch.B., M.D. 05/01/2022 Orders Only Transplant Jeovanny Mcdonald APRN, C.N.P., M.S.N. 04/28/2022 Office Visit Transplant Tnoy Rubalcava Hyperlipidem ia (Primary Dx); Micheal Belle, Ch.B., Immunodefici ency ([facility]LY [facility]); M.DDavi Transplant Jessica l ([facility]); Hypomagnesemia; Hypophosphatemi a 04/28/2022 Hospital Encounter Laboratory Monroe Cox t Renal ([facility]) Medicine Mukund Gomez 04/27/2022 Procedure visit Urology An Nicholas Stent Uret eral Indwelling (Primary Dx); CHRISTOPHER Yap, Transplant Jessica l ([facility]) C.N.P., D.N.P., M.S.N. Katherine Eduardo APRN, C.N.P., D.N.P. 04/26/2022 Office Visit Transplant Tony Rubalcava Transplant R enal ([facility]) (Primary Dx); Micheal Belle, Ch.B., Immunodefici ency (HCC); Mukund Smoking Tobacco Use Personal History; Depression Martha r One Episode Full Remission (HCC); Failure Renal E nd Stage (HCC) 04/26/2022 Clinical Transplant Twin Vanegas M.D. 04/25/2022 Nurse Only Transplant Patricia Cox M.D. Basballe, Melinda J, RDaviNDavi, C.C.T.CDavi 04/25/2022 Comprehensive Visit Transplant Felipe, Nehemias, Transp lant Renal (HCC) Mukund 04/25/2022 Education Transplant Cristopher, An Transplant Re nal ([facility]) CHRISTOPHER Yap, C.N.P., D.N.P., M.S.N. Beatriz Tillman R.N. 04/25/2022 Hospital Encounter Transplant Blood Kukla, After care Transplant and Marrow Jeni, Renal (HCC) Mukund 04/25/2022 Orders Only Transplant Basballe, Transplant Jessica l (HCC) (Primary Dx); Sandra Belle, High Risk Medic ation; R.N., C.C.T.C. Aftercare Tra nsplant Renal (HCC); Immunodeficienc y (HCC) 04/25/2022 Orders Only Transplant Basballe, Transplant Jessica l (HCC) (Primary Dx); Sandra Belle, High Risk Medic ation; R.N., C.C.T.C. Aftercare Tra nsplant Liver (HCC); Aftercare Trans plant Renal (HCC); Immunodeficienc y (HCC); Other Specified Personal Risk Factors Not Elsewhere Classified 04/25/2022 Clinical Pharmacy Rubina Matthews, C.Ph.T. 04/25/2022 Orders Only Transplant Basballe, Aftercare Trans plant Renal (HCC) (Primary Dx); Sandra Belle, Transplant Jessica l (HCC); R.N., C.C.T.C. High Risk Med ication; Other Specified Personal Risk Factors Not Elsewhere Classified 04/21/2022 Office Visit Transplant Kukla, Aftercare Trans plant Jeni, Renal (HCC) (Shyanne haddad M.D. Dx) 04/21/2022 Education Transplant An Nicholas Transplant Re nal ([facility]) CHRISTOPHER Yap C.N.P., D.N.P., M.S.N. Ligia Layton RDN, JAIME 04/21/2022 Hospital Encounter Radiology Beulaht, Transplan t Renal ([facility]) Mukund Gomez 04/21/2022 Orders Only Transplant Kukla, Aftercare Trans plant Jeni, Renal ([facility]) (Pr catie Duval Dx) 04/19/2022 Office Visit Transplant Kukla, Transplant Jessica l ([facility]) Jeni (Primary Dx) Mukund 04/19/2022 Hospital Encounter Transplant Blood [place], Trans plant Renal ([facility]) and Marrow PoMukund ayala 04/19/2022 Clinical Transplant Óscar, Jose Ngo M.D. 04/18/2022 Specialty Pharmacy Pharmacy Bisi Schultz PharmDebra, R.Ph. 04/17/2022 Office Visit Transplant Kukla, Transplant Jessica l ([facility]) (Primary Dx); Steve Ngo M.D. 04/17/2022 Hospital Encounter Transplant Blood Jeovanny Mcdonald Tra nsplant Renal ([facility]) and Marrow CHRISTOPHER Barron C.N.P., M.S.N. 04/14/2022 Clinical Support Transplant An Nicholas Transplan t Renal ([facility]) CHRISTOPHER Yap, (Primary Dx) C.N.P., D.N.P., M.S.N. Jennifer Urbina L.I.C.S.WDavi, M.S.W. 04/13/2022 Office Visit Transplant Tony Rubalcava Transplant R enal ([facility]) (Primary Dx); Barbra, Melissa., Ch.B., Hyperlipidem ia; Mukund Hypertension An d Chronic Kidney Disease Stage 1 To 4; Immunodeficienc y ([facility]) 04/13/2022 Hospital Encounter Transplant Blood [place], Trans plant Renal ([facility]) and Marrow Mukund Gomez 04/12/2022 Comprehensive Visit Vascular Medicine Sherry Judd, Transplant Renal ([facility]); P.A.Dotty. Fariba Arter iovenous Fistula Initial ([facility]) 04/11/2022 Office Visit Transplant Tony Rubalcava Transplant R enal ([facility]) Micheal Belle, Ch.B., (Primary Dx) M.D. 04/11/2022 Nurse Only Transplant An Nicholas CHRISTOPHER Yap, C.N.P., D.N.P., M.S.N. Sandra Peterson R.Milady., C.C.T.C. 04/10/2022 Infusion Infusion Therapy An Nicholas Transplan t Renal ([facility]) Fracisco, CHRISTOPHER, (Primary Dx) C.N.P., D.N.P., M.S.N. 04/07/2022 Clinical Admitting/Central Pre-visit Intake Communication Scheduling 04/07/2022 Specialty Pharmacy Pharmacy Elena Lal Transpl ant Renal ([facility]) E, Pharm.DDavi (Primary Dx) 04/07/2022 Orders Only Transplant Jasperson, Transplant Jessica l ([facility]) (Primary Dx); Dara Belle R.N., Fariba Art eriovenous Fistula Initial ([facility]) CCTN 04/07/2022 Orders Only Transplant Jasperson, Transplant Jessica l ([facility]) Dara Belle R.N., (Primary Dx) CCTN 04/07/2022 Orders Only Transplant Jasperson, Transplant Jessica l ([facility]) Dara Belle R.N., (Primary Dx) CCT 04/07/2022 Clinical Transplant Sary Jaeger, Communication R.N. 04/06/2022 Anesthesia Event Manish Rhodes M.D., Ph.D. Haim Arredondo M.D. 04/06/2022 Surgery Nehemias Felipe, TRANSPLANT GINNY Krueger M.D. RECIPIENT OF DE CEASED DONOR WITH BACK TABLE PREP KIDNEY ALL OGRAFT 04/06/2022 Hospital Encounter Transplant Nehemias Felipe, Chronic Kidney Disease Stage 5 Glomerular Filtration Rate Less Than 15 ([facility]) (Primary Dx); - MDebra Chronic Kidney Disease; 04/09/2022 [place] Transplant Jack al (HCC) Mukund Neves 03/28/2022 Office Visit General Surgery Chollett, Herniorrhaph y Ventral Lydia Belle, Status Post (Pr catie Barrow., P.A. Dx) 03/28/2022 Clinical General Surgery Gadient, Communication Stephanie Moses C.M.A. 03/17/2022 Clinical Transplant Sary Jaeger, waitlist appo intment Communication R.N. 03/17/2022 Orders Only Transplant Sary Jaeger, Chronic Kidne y Disease Stage 5 GFR Less Than 15 Dialysis Dependent (HCC) (Primary Dx); R.N. Pretransplant R ecipient Evaluation Exam; Abnormal Findin g Of Blood Chemistry Unspecified ; Fatigue ; Human Immunodef iciency Virus Screening ; Hypertension Es sential Primary 03/09/2022 Hospital Encounter Laboratory [place] Chronic Kidney Disease; Medicine Mukund Neves Pretransplant R ecipient Evaluation Exam 03/09/2022 Orders Only Transplant GuilhermeTwin lowery Chronic Kidney Disease; Mukund Neves Pretransplant R ecipient Evaluation Exam 02/27/2022 Office Visit General Surgery Chollett, Herniorrhaph y Ruben Belle, Status Post (Pr catie Barrow., P.A. Dx) 02/27/2022 Orders Only Nephrology and Dendron, Hypertension Steve Yap Jr. D.O. 02/27/2022 Orders Only Nephrology and Tanya, Hypertension Michelle Quevedo Jr..O. 02/27/2022 Orders Only Nephrology and Tanya, Hypertension Steve Yap Jr. D.O. 02/22/2022 Office Visit General Surgery Chollett, Herniorrhaph y Ventral Lydia Belle, Status Post (Pr catie Barrow., P.A. Dx) 02/22/2022 Refill Nephrology and Tanya, Med Refill Hypertension Steve Yap Jr., D.O. 02/22/2022 Orders Only Dialysis Zaire Candelario, ENGINEER TECHNICAL STAFF, C.N.P. from Last 3 Months Immunizations Name Administration Dates Next Due HepA Adult 09/18/2017 HepB Adult 07/03/2018, 02/27/2018, 01/28/2018, 12/28/2017, 12/12/2017, 09/15/2017, 07/24/2017, 06/23/2017 HepB Dialysis 09/19/2021, 07/03/2018, 02/27/2018, 01/28/2018, 12/28/2017, 12/12/2017, 09/15/2017, 07/24/2017, 06/23/2017 Influenza (IM) Preservative Free 05/14/2012 Influenza, Unspecified 01/03/2022 (Deferred: Other - up to date), 06/13/2021, 06/08/2021, 05/21/2020, 05/15/2018, 06/15/2017 PCV13 06/05/2014 PPD Test 09/16/2021, 06/20/2021, 06/21/2020, 07/21/2019, 07/07/2019, 06/24/2018, 07/05/2017, 06/21/2017 Pneumococcal Conjugate(PCV), 05/03/2020, 06/21/2017 Unspecified RZV (SHINGRIX) 01/03/2022 (Deferred: Contraindication), 01/20/2020 (Deferred: Other - will check with pcp) Tdap 09/18/2017 influenza vaccine quad 05/31/2019, 06/05/2014 (FLUZONE/FLUARIX) (6 months and older)(PF) Family History Patient is adopted Medical History Relation Name Comments No Known Problems Father No Known Problems Mother Relation Name Status Comments Father Mother Social History Tobacco Use Types Packs/Day Years Used Date Smoking Tobacco: Former Cigarettes 0.5 30 Star rebecca: 01/29/1975 Smokeless Tobacco: Never Tobacco Cessation: Counseling Given: Not Answered Alcohol Use Standard Drinks/Week Comments No 0 (1 standard drink = 0.6 oz pure alcoho l) Alcohol Habits Answer Date Recorded How often do you have a drink containing alcohol? Never 12/23/2021 How many drinks containing alcohol do you have on a Patient refused 01/26/2019 typical day when you are drinking? How often do you have six or more drinks on one Never 01/26/2019 occasion? Comment: Not asked Social Isolation Answer Date Recorded In a typical week, how many times do you talk on Twice a wee k 12/23/2021 the phone with family, friends, or neighbors? How often do you get together with friends or Patient refuse d 12/23/2021 relatives? How often do you attend worship or amish 1 to 4 times per year 12/23/2021 services? Do you belong to any clubs or organizations such No 12/23/2021 as worship groups, unions, fraternal or athletic groups, or school groups? How often do you attend meetings of the clubs or Never 12/23/2021 organizations you belong to? Are you now , , , 12/23/2021 , never or living with a partner? Physical Activity Answer Date Recorded On average, how many days per week do you engage in moderate to 0 days 12/23/2021 strenuous exercise (like walking fast, running, jogging, dancing, swimming, biking, or other activities that cause a light or heavy sweat)? On average, how many minutes do you engage in exercise at th is 0 min 12/23/2021 level? Stress Answer Date Recorded Do you feel stress - tense, restless, nervous, or To some ex tent 12/23/2021 anxious, or unable to sleep at night because your mind is troubled all the time - these days? Financial Resource Strain Answer Date Recorded How hard is it for you to pay for the very basics like Not v lily hard 12/23/2021 food, housing, medical care, and heating? Intimate Partner Violence Answer Date Recorded Within the last year, have you been afraid of your partner o r No 12/23/2021 ex-partner? Within the last year, have you been humiliated or emotionall y No 12/23/2021 abused in other ways by your partner or ex-partner? Within the last year, have you been kicked, hit, slapped, or No 12/23/2021 otherwise physically hurt by your partner or ex-partner? Within the last year, have you been raped or forced to have any No 12/23/2021 kind of sexual activity by your partner or ex-partner? Food Insecurity Answer Date Recorded Within the past 12 months, you worried that your food would Never true 12/23/2021 run out before you got money to buy more. Within the past 12 months, the food you bought just didn't N ever true 12/23/2021 last and you didn't have money to get more. Transportation Needs Answer Date Recorded In the past 12 months, has lack of transportation kept you f rom No 12/23/2021 medical appointments or from getting medications? In the past 12 months, has lack of transportation kept you f rom No 12/23/2021 meetings, work, or getting things needed for daily living? Housing Stability Answer Date Recorded In the last 12 months, was there a time when you were not ab le No 12/23/2021 to pay the mortgage or rent on time? In the last 12 months, how many places have you lived? 1 12/23/2021 In the last 12 months, was there a time when you did not hav e a No 12/23/[address] sleep or slept in a detention (including now)? Education Answer Date Recorded What is the highest level of school you have GED or equivale nt 01/26/2019 completed or the highest degree you have received? Sex Assigned at Date Recorded Female 12/23/2021 4:18 AM CDT Last Filed Vital Signs Vital Sign Reading Time Taken Comments Blood Pressure 152/93 04/28/2022 2:50 PM CDT Pulse 89 04/28/2022 2:50 PM CDT Temperature 36.8 ??C (98.2 ??F) 04/28/2022 2:50 PM CDT Respiratory Rate 20 04/10/2022 8:17 AM CDT Oxygen Saturation 97% 04/09/2022 12:45 PM CDT Inhaled Oxygen Concentration - - Weight 97.1 kg (214 lb 1.1 oz) 04/28/2022 2:50 PM CDT Height 161.8 cm (5' 3.7) 04/28/2022 12:00 PM CDT Body Mass Index 37.09 04/28/2022 12:00 PM CDT Plan of Treatment Upcoming Encounters Date Type Specialty Care Team Description 06/01/2022 Telemedicine Pharmacy An Nicholas APRN, C.N.P., D.N.P., M.S.N. [address] [place], [place] [phone] (Wo rk) 07/31/2022 Lab Laboratory Medicine Tony Rubalcava M. B., Sydnie, Mukund [address] [place] [address] [phone] (Wo rk) 07/31/2022 Lab Laboratory Medicine Tony Rubalcava M. B., Sydnie, Mukund [address] [place] [address] [phone] (Wo rk) 07/31/2022 Office Visit Transplant Tony Rubalcava M.B., Syd[place], Mukund [address] [place] [address] [phone] (Wo rk) 07/31/2022 Appointment Radiology Tony Rubalcava M.B., Sydnie, Mukund [address] [place] [address] [phone] (Wo rk) 08/01/2022 Office Visit Transplant Tony Rubalcava M.B., Sydnie, MDebra [address] [place] [address] [phone] (Wo rk) 08/01/2022 Clinical Support Transplant Tony Rubalcava M.B., Sydnie, MDebra [address] [place] [address] [phone] (Wo rk) Health Maintenance Due Date Last Done Comments CT Colonography 1959 Cologuard 1959 FIT 1959 Zoster Vaccines (1 of 2) 1978 Depression Monitoring 08/07/2021 04/07/2021 (PHQ-9) COVID-19 Vaccine (5 - 02/16/2022 12/22/2021, 07/26/2021, Booster for Moderna series) 10/08/2020, Addition al history exists Influenza Vaccine (#1) 2022 06/13/2021, 06/08/2021, 05/21/2020, Additional history exists Office Visit for Blood 07/28/2022 04/28/2022 Pressure Check / Re-check Mammogram 09/06/2022 09/06/2021, 09/14/2017 Hepatitis B Vaccines (10 of 09/19/2022 09/19/2021, 07/03/20 18, 10 - Risk Dialysis 07/03/2018, Additional Recombivax 3-dose series) history exists Pneumococcal vaccine (0-64 05/03/2025 05/03/2020, 7, years) (4 - PPSV23 or 06/05/2014 PCV20) Fasting Glucose for 05/22/2025 05/22/2022, 05/15/2022, Diabetes Screening 05/08/2022, Additional history exists Lipid (Cholesterol) 04/21/2027 04/21/2022, 04/07/2021, Screening 01/28/2019, Additional history exists Colonoscopy 09/14/2027 09/14/2017, 09/14/2017 Colorectal Cancer Screening 09/14/2027 DTaP,Tdap,and Td Vaccines 09/18/2027 09/18/2017 (2 - Td or Tdap) HPV Vaccines Aged Out No longer eligib le based on patient 's age to complete this topic Medical Devices Implanted Type Area Victims Advocate Clerk/Specialist Device Shelf Model / Identifier Expiration Serial / Date Lot Clp Lgc Lgt Ti Sm - [id number] Hardware e.g. Ethicon [id number] / Implanted: Qty: 1 on 05/06/2019 by Guillermo Yu M.B.B.SDavi at [facility] pins/screws/r / ods Dev Opt-At Ang Tp Abs 15 - [id number] Hardware e.g. N/A: C.R .Bard 02/14/2023 [id number] / Implanted: Qty: 1 on 02/14/2022 by Cresencio Chen M.D. at [facility] pins/screws/r Abdomen / ods [id number] Clp Apr Lg Intpolina Pittmang 11.5 - [id number] Hardware e.g. Ethicon [id number] / Implanted: Qty: 1 on 04/06/2022 by Nehemias Ny M.D. at [facility] pins/screws/r / ods Grft Vsc Bov 0.8x8 - [id number] Mesh or Patch Synovis 11/21/2023 [id number] / Implanted: Qty: 1 on 05/06/2019 by Guillermo Yu M.B.B.S. at [facility] / [id number] [facility] Vnt Doug Synth 15x20 - [id number] Mesh or Patch N/A: C.R .Bard 05/17/2022 [id number] / Implanted: Qty: 1 on 02/14/2022 by Cresencio Chen M.D. at [facility] Abdomen / [id number] Sprint Endura Pns System Stimulator Right: Arm Unknown [id number] / Implanted: Qty: 1 on 10/14/2020 by Юлия De La Cruz M.D. at [facility] Arevalo/Gonda Other / [id number] 6x40 - [id number] - [id number] Vascular Manteno 02/26/2022 [id number] / Implanted: Qty: 1 on 05/06/2019 by Guillermo Yu M.B.B.S. at [facility] Graft [id number] / Stnt Viabahn 035 [id number] - [id number] - [id number] Vascular Manteno 05/05/2023 [id number] / Implanted: Qty: 1 on 12/23/2020 by J[facility] Red[facility] M[facility]D. [facility] Graft [id number] / Stnt Viabahn Mrk [id number] - [id number] - [id number] Vascular Manteno 07/10/2021 [id number] / Implanted: Qty: 1 on 10/25/2018 by Jamin Hanna M.D. at [facility] Stent [id number] / Stnt Viabahn 018 [id number] - [id number] - [id number] Vascular Manteno 07/28/2023 [id number] / Implanted: Qty: 1 on 12/15/2020 by Jatin Reddy M.D. at [facility] Stent [id number] / Explanted Type Area Victims Advocate Clerk/Specialist Device Shelf Model / Identifier Expiration Serial / Date Lot Amplatz Ureteral J Stent 8.5 Fr 16 Cm - [place] [id number] We Implanted: Qty: 1 on 06/05/2014 Stent Inc. Explanted: 11/05/2014 (Quantity not on file) Description: Device Victims Advocate Clerk/Specialist - [employer] Device Status Text - UROLOGY-25842. Stent Ureteral Inlay [id number] - Oakes [id number] Ureteral Stent Ureter C .R.Bard Implanted: Qty: 1 on 11/05/2014 Explanted: 12/17/2014 (Quantity not on file) Description: Device Victims Advocate Clerk/Specialist - [facility]is [facility] Patient Care Division. Device Status Text - UROLOGY-928716. Amplatz Ureteral J Stent 8.5 Fr 16 Cm - Oakes [id number] Ureteral Sten t Ureter [employer] Implanted: Qty: 1 on 09/11/2016 Explanted: 12/14/2016 (Quantity not on file) Description: Device Victims Advocate Clerk/Specialist - [employer] Device Status Text - UROLOGY-59725. Stent Inlay 8fr X 20cm - Oakes [id number] Ureteral Stent C.R.Bard Implanted: Qty: 1 on 12/14/2016 Explanted: Qty: 1 on 05/14/2018 by Teresa Antonio M.D. at [facility] Description: Device Victims Advocate Clerk/Specialist - [facility] Patient Care Division. Device Status Text - UROLOGY-558322. MARCELO Data - [id number]. Stent Inlay 8fr X 20cm - Oakes [id number] Ureteral Stent Ureter C.R.Bard Implanted: Qty: 1 on 06/12/2017 Explanted: 08/26/2018 (Quantity not on file) Description: Device Victims Advocate Clerk/Specialist - [facility]itt[facility] Patient Care Division. Device Status Text - UROLOGY-801909. MARCELO Data - [id number]. Stnt Uret Inl 8fx20 - [id number] Ureteral Stent Right: C.R.Bard [id number] / Implanted: Qty: 1 on 05/14/2018 by Teresa Antonio M.D. at [facility] Ureter / Explanted: Qty: 1 on 09/05/2018 by Vicente Robledo M.D. at [facility] [id number] Stnt Uret Inl 8fx20 - [id number] Ureteral Stent C.R.Bar michelle [id number] / Implanted: Qty: 1 on 12/26/2018 by Shanon Horne M.D. at [facility] 2020 / Explanted: Qty: 1 on 12/26/2018 by Shanon Horne M.D. at [facility] [id number] Stnt Uret Inl 8fx20 - [id number] Ureteral Stent Right: C.R .Bard [id number] / Implanted: Qty: 1 on 09/05/2018 by Vicente Robledo M.D. at [facility] Ureter 2020 / Explanted: Qty: 1 on 09/16/2019 by Geraldo Salinas M.D. at [facility] [id number] Stent Inlay 8fr X 20cm - Oakes [id number] Ureteral Stent Ureter C.R.Bard Implanted: Qty: 1 on 09/05/2017 Explanted: 01/22/2020 (Quantity not on file) Description: Device Victims Advocate Clerk/Specialist - Bard Patient Care Division. Device Status Text - UROLOGY-056160. MARCELO Data - [id number]. Stnt Uret Inl 8fx20 - [id number] - [id number] Ureteral Stent C.R.Bard 01/26/2023 [id number] / Implanted: Qty: 1 on 01/22/2020 by Beck Wayne M.D. at [facility] [id number] / Explanted: Qty: 1 on 12/16/2020 by Elena Melgar M.D. at [facility] [id number] Description: Right allograft kidney uret er Stnt Uret W/O Gw Imj 8fx20 - [id number] Ureteral Right: Coloplast [id number] 06/26/2021 [id number] / Implanted: Qty: 1 on 12/16/2020 by Geraldo Waller M.D. at [facility] Stent Ureter / Explanted: Qty: 1 on 01/05/2022 by Tanvir Leos M.D. at [facility] [id number] Stnt Uret Cls Tp Dbl 7fx16 - [id number] Ureteral Olympus [id number] / Implanted: Qty: 1 on 04/06/2022 by Nehemias Ny M.D. at [facility] Stent Gisselle / Explanted: Qty: 1 on 04/27/2022 Procedures Procedure Name Priority Date/Time Associated Comments Diagnosis TACROLIMUS LEVEL, B Routine 05/22/2022 Results for 10:03 AM CDT this procedure are in the results section. CBC WITH Routine 05/22/2022 Results for DIFFERENTIAL, B 10:03 AM CDT this procedu re are in the results section. MAGNESIUM, S Routine 05/22/2022 Results for 10:03 AM CDT this procedure are in the results section. PHOSPHORUS Routine 05/22/2022 Results for (INORGANIC), S 10:03 AM CDT this procedur e are in the results section. GLUCOSE, RANDOM, S/P Routine 05/22/2022 Results for 10:03 AM CDT this procedure are in the results section. CREATININE WITH Routine 05/22/2022 Results for EGFR, S/P 10:03 AM CDT this procedure are in the results section. POTASSIUM, S/P Routine 05/22/2022 Results for 10:03 AM CDT this procedure are in the results section. CBC WITH Routine 05/15/2022 Results for DIFFERENTIAL, B 10:10 AM CDT this procedu re are in the results section. MAGNESIUM, S Routine 05/15/2022 Results for 10:10 AM CDT this procedure are in the results section. PHOSPHORUS Routine 05/15/2022 Results for (INORGANIC), S 10:10 AM CDT this procedur e are in the results section. GLUCOSE, RANDOM, S/P Routine 05/15/2022 Results for 10:10 AM CDT this procedure are in the results section. CREATININE WITH Routine 05/15/2022 Results for EGFR, S/P 10:10 AM CDT this procedure are in the results section. POTASSIUM, S/P Routine 05/15/2022 Results for 10:10 AM CDT this procedure are in the results section. TACROLIMUS LEVEL, B Routine 05/08/2022 Results for 10:50 AM CDT this procedure are in the results section. TACROLIMUS LEVEL, B Routine 05/08/2022 Results for 10:50 AM CDT this procedure are in the results section. CBC WITH Routine 05/08/2022 Results for DIFFERENTIAL, B 10:50 AM CDT this procedu re are in the results section. MAGNESIUM, S Routine 05/08/2022 Results for 10:50 AM CDT this procedure are in the results section. PHOSPHORUS Routine 05/08/2022 Results for (INORGANIC), S 10:50 AM CDT this procedur e are in the results section. GLUCOSE, RANDOM, S/P Routine 05/08/2022 Results for 10:50 AM CDT this procedure are in the results section. CREATININE WITH Routine 05/08/2022 Results for EGFR, S/P 10:50 AM CDT this procedure are in the results section. POTASSIUM, S/P Routine 05/08/2022 Results for 10:50 AM CDT this procedure are in the results section. HCV RNA DETECT/QUANT Routine 05/08/2022 Results for 10:50 AM CDT this procedure are in the results section. HIV-1 RNA DETECT / Routine 05/08/2022 Results f or QUANT 10:50 AM CDT this procedure are in the results section. TACROLIMUS LEVEL, B Routine 05/08/2022 Transplant Renal Resu lts for 10:00 AM CDT (HCC) this procedure are in the results section. IOTHALAMATE, Routine 04/28/2022 Results for GLOMERULAR 12:13 PM CDT this procedure FILTRATION RATE, P are in th e results section. PHOSPHORUS Routine 04/28/2022 Transplant Renal Results for (INORGANIC), S 11:43 AM CDT (HCC) this procedur e are in the results section. MAGNESIUM, S Routine 04/28/2022 Transplant Renal Results for 11:43 AM CDT ([facility]) this procedure are in the results section. COMPREHENSIVE Routine 04/28/2022 Transplant Renal Results fo r METABOLIC PANEL, S/P 11:43 AM CDT ([facility]) this pr ocedure are in the results section. CBC WITH Routine 04/28/2022 Transplant Renal Results for DIFFERENTIAL, B 11:43 AM CDT ([facility]) this procedu re are in the results section. BACTERIAL CULTURE, Routine 04/27/2022 9:31 Stent Ureteral Resu lts for AEROBIC + SUSC, AM CDT Indwelling this procedu re URINE are in the results section. MS CYSTHRSCPY RMVL Routine 04/27/2022 9:07 Stent Ureteral Resu lts for FB/STENT CMPLX AM CDT Indwelling this procedur e are in the results section. TACROLIMUS LEVEL, B Routine 04/25/2022 8:12 Aftercare Resul ts for AM CDT Transplant Renal this proced ure ([facility]) are in the results section. MAGNESIUM, S Routine 04/25/2022 8:12 Aftercare Results for AM CDT Transplant Renal this proced ure ([facility]) are in the results section. RENAL FUNCTION Routine 04/25/2022 8:12 Aftercare Results fo r PANEL, S AM CDT Transplant Renal this proced ure ([facility]) are in the results section. CBC WITH Routine 04/25/2022 8:12 Aftercare Results for DIFFERENTIAL, B AM CDT Transplant Renal this pro cedure ([facility]) are in the results section. PROTEIN, TOTAL, 24 Routine 04/22/2022 Transplant Renal Resul ts for HR, U 11:39 AM CDT ([facility]) this procedure are in the results section. ALBUMIN, 24 HR, U Routine 04/22/2022 Transplant Renal Result s for 11:39 AM CDT ([facility]) this procedure are in the results section. MICROSCOPIC MANUAL Routine 04/21/2022 Results f or 11:05 AM CDT this procedure are in the results section. DIPSTICK, U Routine 04/21/2022 Results for 11:05 AM CDT this procedure are in the results section. PH, U Routine 04/21/2022 Results for 11:05 AM CDT this procedure are in the results section. OSMOLALITY, U Routine 04/21/2022 Results for 11:05 AM CDT this procedure are in the results section. URINALYSIS WITH Routine 04/21/2022 Transplant Renal Results for MICROSCOPIC 11:05 AM CDT ([facility]) this procedure are in the results section. BACTERIAL CULTURE, Routine 04/21/2022 Transplant Renal Resul ts for AEROBIC + SUSC, 11:05 AM CDT ([facility]) this procedu re URINE are in the results section. BMD BONE DENSITY RAD - Routine 04/21/2022 9:05 Transplant Renal Res ults for SPINE HIPS (most inpatients AM CDT ([facility]) this proced ure and all are in the outpatients) results section. RENAL FUNCTION Routine 04/21/2022 7:45 Transplant Renal Result s for PANEL, S AM CDT ([facility]) this procedure are in the results section. LIPID PANEL, S Routine 04/21/2022 7:45 Transplant Renal Result s for AM CDT ([facility]) this procedure are in the results section. MYCOPHENOLIC ACID, S Routine 04/21/2022 7:45 Transplant Renal Results for AM CDT ([facility]) this procedure are in the results section. HEPATIC FUNCTION Routine 04/21/2022 7:45 Transplant Renal Resu lts for PANEL, S AM CDT ([facility]) this procedure are in the results section. 25-HYDROXYVITAMIN D2 Routine 04/21/2022 7:45 Transplant Renal Results for AND D3, S AM CDT ([facility]) this procedure are in the results section. TACROLIMUS LEVEL, B Routine 04/21/2022 7:45 Transplant Renal R esults for AM CDT ([facility]) this procedure are in the results section. CBC WITH Routine 04/21/2022 7:45 Transplant Renal Results for DIFFERENTIAL, B AM CDT ([facility]) this procedu re are in the results section. BKV DNA Routine 04/21/2022 7:45 Transplant Renal Results for DETECT/QUANT, P AM CDT ([facility]) this procedu re are in the results section. TROPONIN T, 5TH GEN, Routine 04/21/2022 7:44 Transplant Renal Results for P AM CDT ([facility]) this procedure are in the results section. PARATHYROID HORMONE Routine 04/21/2022 7:44 Transplant Renal R esults for (PTH), S AM CDT ([facility]) this procedure are in the results section. MAGNESIUM, S Routine 04/21/2022 7:44 Transplant Renal Results for AM CDT ([facility]) this procedure are in the results section. TACROLIMUS LEVEL, B Routine 04/19/2022 7:58 Transplant Renal R esults for AM CDT ([facility]) this procedure are in the results section. MAGNESIUM, S Routine 04/19/2022 7:58 Transplant Renal Results for AM CDT ([facility]) this procedure are in the results section. RENAL FUNCTION Routine 04/19/2022 7:58 Transplant Renal Result s for PANEL, S AM CDT ([facility]) this procedure are in the results section. CBC WITH Routine 04/19/2022 7:58 Transplant Renal Results for DIFFERENTIAL, B AM CDT ([facility]) this procedu re are in the results section. MICROSCOPIC MANUAL Routine 04/17/2022 Results f or 12:11 PM CDT this procedure are in the results section. DIPSTICK, U Routine 04/17/2022 Results for 12:11 PM CDT this procedure are in the results section. OSMOLALITY, U Routine 04/17/2022 Results for 12:11 PM CDT this procedure are in the results section. PH, U Routine 04/17/2022 Results for 12:11 PM CDT this procedure are in the results section. URINALYSIS WITH Routine 04/17/2022 Transplant Renal Results for MICROSCOPIC 12:11 PM CDT ([facility]) this procedure are in the results section. BACTERIAL CULTURE, Routine 04/17/2022 Transplant Renal Resul ts for AEROBIC + SUSC, 12:11 PM CDT ([facility]) this procedu re URINE are in the results section. TACROLIMUS LEVEL, B Routine 04/17/2022 7:43 Transplant Renal R esults for AM CDT ([facility]) this procedure are in the results section. MAGNESIUM, S Routine 04/17/2022 7:43 Transplant Renal Results for AM CDT ([facility]) this procedure are in the results section. RENAL FUNCTION Routine 04/17/2022 7:43 Transplant Renal Result s for PANEL, S AM CDT ([facility]) this procedure are in the results section. CBC WITH Routine 04/17/2022 7:43 Transplant Renal Results for DIFFERENTIAL, B AM CDT ([facility]) this procedu re are in the results section. MICROSCOPIC MANUAL Routine 04/13/2022 Results f or 12:31 PM CDT this procedure are in the results section. DIPSTICK, U Routine 04/13/2022 Results for 12:31 PM CDT this procedure are in the results section. PH, U Routine 04/13/2022 Results for 12:31 PM CDT this procedure are in the results section. OSMOLALITY, U Routine 04/13/2022 Results for 12:31 PM CDT this procedure are in the results section. URINALYSIS WITH Routine 04/13/2022 Transplant Renal Results for MICROSCOPIC 12:31 PM CDT ([facility]) this procedure are in the results section. BACTERIAL CULTURE, Routine 04/13/2022 Transplant Renal Resul ts for AEROBIC + SUSC, 12:31 PM CDT ([facility]) this procedu re URINE are in the results section. TACROLIMUS LEVEL, B Routine 04/13/2022 8:17 Transplant Renal R esults for AM CDT ([facility]) this procedure are in the results section. MAGNESIUM, S Routine 04/13/2022 8:17 Transplant Renal Results for AM CDT ([facility]) this procedure are in the results section. RENAL FUNCTION Routine 04/13/2022 8:17 Transplant Renal Result s for PANEL, S AM CDT ([facility]) this procedure are in the results section. CBC WITH Routine 04/13/2022 8:17 Transplant Renal Results for DIFFERENTIAL, B AM CDT ([facility]) this procedu re are in the results section. COMPREHENSIVE Routine 04/11/2022 7:29 Transplant Renal Results for METABOLIC PANEL, S/P AM CDT ([facility]) this procedure Thombosis are in the Arteriovenous results Fistula Initial section. ([facility]) ACTIVATED PARTIAL Routine 04/11/2022 7:29 Transplant Renal Res ults for THROMBOPLASTIN TIME AM CDT ([facility]) this procedure (APTT), P Thombosis are in the Arteriovenous results Fistula Initial section. ([facility]) PROTHROMBIN TIME Routine 04/11/2022 7:29 Transplant Renal Resu lts for (PT), P AM CDT ([facility]) this procedure Thombosis are in the Arteriovenous results Fistula Initial section. ([facility]) TACROLIMUS LEVEL, B Routine 04/11/2022 7:29 Transplant Renal R esults for AM CDT ([facility]) this procedure are in the results section. MAGNESIUM, S Routine 04/11/2022 7:29 Transplant Renal Results for AM CDT ([facility]) this procedure are in the results section. CBC WITHOUT Routine 04/11/2022 7:29 Transplant Renal Results for DIFFERENTIAL, B AM CDT (HCC) this procedu re are in the results section. GLUCOSE POCT, B Routine 04/09/2022 Results for 12:26 PM CDT this procedure are in the results section. GLUCOSE POCT, B Routine 04/09/2022 7:39 Results f or AM CDT this procedure are in the results section. TACROLIMUS LEVEL, B Timed 04/09/2022 5:27 Resul ts for AM CDT this procedure are in the results section. CBC WITHOUT Routine 04/09/2022 5:27 Results for DIFFERENTIAL, B AM CDT this procedu re are in the results section. PHOSPHORUS Routine 04/09/2022 5:27 Results for (INORGANIC), S AM CDT this procedur e are in the results section. MAGNESIUM, S Routine 04/09/2022 5:27 Results for AM CDT this procedure are in the results section. BASIC METABOLIC Routine 04/09/2022 5:27 Results f or PANEL, S/P AM CDT this procedure are in the results section. GLUCOSE POCT, B Routine 04/08/2022 7:04 Results f or PM CDT this procedure are in the results section. ADULT OXYGEN THERAPY Routine 04/08/2022 8:01 AM CDT CBC WITHOUT Routine 04/08/2022 6:48 Results for DIFFERENTIAL, B AM CDT this procedu re are in the results section. BASIC METABOLIC Routine 04/08/2022 6:48 Results f or PANEL, S/P AM CDT this procedure are in the results section. ADULT OXYGEN THERAPY Routine 04/07/2022 8:01 PM CDT POTASSIUM, S/P Timed 04/07/2022 Results for 11:59 AM CDT this procedure are in the results section. GLUCOSE POCT, B Routine 04/07/2022 9:56 Results f or AM CDT this procedure are in the results section. GLUCOSE POCT, B Routine 04/07/2022 9:20 Results f or AM CDT this procedure are in the results section. GLUCOSE POCT, B Routine 04/07/2022 8:39 Results f or AM CDT this procedure are in the results section. GLUCOSE POCT, B Routine 04/07/2022 8:06 Results f or AM CDT this procedure are in the results section. REMOTE OXIMETRY Routine 04/07/2022 8:01 MONITORING CONT. AM CDT ADULT OXYGEN THERAPY Routine 04/07/2022 8:01 AM CDT ECG STAT 04/07/2022 7:47 Results for AM CDT this procedure are in the results section. CBC WITHOUT STAT 04/07/2022 6:26 Results for DIFFERENTIAL, B AM CDT this procedu re are in the results section. RENAL FUNCTION STAT 04/07/2022 6:26 Results fo r PANEL, S AM CDT this procedure are in the results section. PHOSPHORUS Routine 04/07/2022 6:26 Results for (INORGANIC), S AM CDT this procedur e are in the results section. MAGNESIUM, S Routine 04/07/2022 6:26 Results for AM CDT this procedure are in the results section. REMOTE OXIMETRY Routine 04/07/2022 3:05 MONITORING CONT. AM CDT REMOTE OXIMETRY Routine 04/07/2022 3:05 MONITORING CONT. AM CDT REMOTE OXIMETRY Routine 04/07/2022 3:05 MONITORING CONT. AM CDT ADULT OXYGEN THERAPY Routine 04/07/2022 3:05 AM CDT ADULT OXYGEN THERAPY Routine 04/07/2022 3:05 AM CDT ADULT OXYGEN THERAPY Routine 04/07/2022 3:05 AM CDT CBC WITH STAT 04/06/2022 Results for DIFFERENTIAL, B 11:49 PM CDT this procedu re are in the results section. BASIC METABOLIC STAT 04/06/2022 Results for PANEL, S/P 11:49 PM CDT this procedure are in the results section. US KIDNEY TRANSPLANT RAD - Routine 04/06/2022 Result s for LEFT WITH DOPPLER (most inpatients 11:33 PM CDT this p rocedure and all are in the outpatients) results section. DX ABDOMEN PORTABLE RAD - Routine 04/06/2022 Results for ANTERIOR POSTERIOR 1 (most inpatients 11:07 PM CDT thi s procedure VIEW and all are in the outpatients) results section. ADULT OXYGEN THERAPY Routine 04/06/2022 11:04 PM CDT RENAL PATHOLOGY Routine 04/06/2022 9:47 Chronic Kidney Results for PM CDT Disease this procedure are in the results section. MC ANE INVASIVE Routine 04/06/2022 8:10 Results f or CATHETER PM CDT this procedure are in the results section. AIRWAY MANAGEMENT Routine 04/06/2022 7:55 Results for PM CDT this procedure are in the results section. HLA CROSSMATCH 04/06/2022 5:10 Results fo r SUMMARY REPORT PM CDT this procedur e are in the results section. HLA CLASS II TYPING Routine 04/06/2022 5:10 Resul ts for LOWRES, DTEST,B PM CDT this procedu re are in the results section. HLA CLASS I TYPING Routine 04/06/2022 5:10 Result s for LOWRES, DTEST,B PM CDT this procedu re are in the results section. HLA FLOW CYTOMETRIC Routine 04/06/2022 5:10 Resul ts for CROSSMATCH PM CDT this procedure are in the results section. DX CHEST PORTABLE 1 RAD - Routine 04/06/2022 4:35 Resu lts for VIEW (most inpatients PM CDT this proced ure and all are in the outpatients) results section. ZELAYA/KID POST TRANS STAT 04/06/2022 4:30 Result s for STORAGE, B PM CDT this procedure are in the results section. TYPE AND SCREEN STAT 04/06/2022 4:30 Results f or PM CDT this procedure are in the results section. HIV-1/-2 AG AND AB STAT 04/06/2022 4:30 Result s for SCREEN, PLASMA PM CDT this procedur e are in the results section. HLA CLASS I/II STAT 04/06/2022 4:29 Results fo r COMBINED CPRA, SERUM PM CDT this pr ocedure are in the results section. HLA CLASS II SAB STAT 04/06/2022 4:29 Results for ANTIBODY SCREEN PM CDT this procedu re are in the results section. HLA CLASS I SAB STAT 04/06/2022 4:29 Results f or ANTIBODY SCREEN PM CDT this procedu re are in the results section. TROPONIN T, 5TH GEN, STAT 04/06/2022 4:29 Resu lts for P PM CDT this procedure are in the results section. BILIRUBIN, TOT, S/P STAT 04/06/2022 4:29 Resul ts for PM CDT this procedure are in the results section. BILIRUBIN DIRECT, STAT 04/06/2022 4:29 Results for S/P PM CDT this procedure are in the results section. DIPSTICK, U Routine 04/06/2022 4:19 Results for PM CDT this procedure are in the results section. HC OSMOLALITY ASSAY Routine 04/06/2022 4:19 Resul ts for URINE PM CDT this procedure are in the results section. PH, RANDOM, U Routine 04/06/2022 4:19 Results for PM CDT this procedure are in the results section. MICROSCOPIC MANUAL Routine 04/06/2022 4:19 Result s for PM CDT this procedure are in the results section. URINALYSIS WITH Routine 04/06/2022 4:19 Results f or MICROSCOPIC PM CDT this procedure are in the results section. GRAM'S ST, U Routine 04/06/2022 4:19 Results for PM CDT this procedure are in the results section. SARS CORONAVIRUS 2, STAT 04/06/2022 4:19 Resul ts for PCR RAPID, V PM CDT this procedure are in the results section. BACTERIAL CULTURE, Routine 04/06/2022 4:19 Result s for AEROBIC + SUSC, PM CDT this procedu re URINE are in the results section. HEMODIALYSIS Routine 04/06/2022 3:34 PM CDT PROTHROMBIN TIME STAT 04/06/2022 3:28 Results for (PT), P PM CDT this procedure are in the results section. ACTIVATED PARTIAL STAT 04/06/2022 3:28 Results for THROMBOPLASTIN TIME PM CDT this pro cedure (APTT), P are in the results section. PHOSPHORUS STAT 04/06/2022 3:28 Results for (INORGANIC), S PM CDT this procedur e are in the results section. COMPREHENSIVE STAT 04/06/2022 3:28 Results for METABOLIC PANEL, S/P PM CDT this pr ocedure are in the results section. HCV RNA DETECT/QUANT STAT 04/06/2022 3:28 Resu lts for PM CDT this procedure are in the results section. HCV AB SCRN W/REFLEX STAT 04/06/2022 3:28 Resu lts for TO HCV PCR, S PM CDT this procedure are in the results section. HBC TOTAL AB SCRN, S STAT 04/06/2022 3:28 Resu lts for PM CDT this procedure are in the results section. HBS ANTIBODY SCRN, S STAT 04/06/2022 3:28 Resu lts for PM CDT this procedure are in the results section. HBS ANTIGEN SCRN, S STAT 04/06/2022 3:28 Resul ts for PM CDT this procedure are in the results section. CBC WITH STAT 04/06/2022 3:27 Results for DIFFERENTIAL, B PM CDT this procedu re are in the results section. ECG STAT 04/06/2022 3:09 Results for PM CDT this procedure are in the results section. HLA CLASS I/II Routine 03/15/2022 5:30 Results fo r COMBINED CPRA, SERUM AM CDT this pr ocedure are in the results section. HLA CLASS II SAB Routine 03/15/2022 5:30 Chronic Kidney Result s for ANTIBODY SCREEN AM CDT Disease this procedure Pretransplant are in the Recipient results Evaluation Exam section. HLA CLASS I SAB Routine 03/15/2022 5:30 Chronic Kidney Results for ANTIBODY SCREEN AM CDT Disease this procedure Pretransplant are in the Recipient results Evaluation Exam section. from Last 3 Months Results Tacrolimus, B (05/22/2022 10:03 AM CDT)Only the most recent of11 resultswithin the time period is included. P athologist Signature EXT Tacrolimus 10.6 ng/mL [facility] Specimen (Source) Anatomical Collection Method Collection Time Re ceived Time Location / / Volume Laterality 05/22/2022 10:03 AM CDT Narrative [facility] - 05/25/2022 8:34 AM CDT This result has an attachment that is no t available. External results verified in Extract by Radha Mauricio on 05/25/2022 at 08:32 AM. Ordering Provider External M.D. LAB BLOOD NON ADD-ON Performing Organization Address City/State/ZIP Code Phon e Number [facility] [address] [place] [address] (ABNORMAL) CBC with Differential, Blood (05/22/2022 10:03 AM CDT)Only the most recent of11 resultswithin the time period is included. Patholo gist Method Time Signature EXT Leukocytes 6.01 4.50 - [place] 11.00 [facility] K/uL LABORATORY EXT RBC 3.37 (L) 4.00 - [place] 5.20 m/uL HOSPITAL LABORATORY EXT Hemoglobin 10.2 (L) 12.0 - [place] 16.0 HOSPITAL gm/dL LABORATORY EXT Hematocrit 33.4 33.0 - [place] 51.0 % HOSPITAL LABORATORY EXT MCV 99 80 - 100 [place] fL HOSPITAL LABORATORY EXT Platelet 135 (L) 140 - 440 [place] Count K/[facility] LABORATORY EXT RDW 15.8 (H) 11.5 - [place] 15.5 % HOSPITAL LABORATORY EXT Neutrophils 3.88 1.7 - 7.0 [facility] LABORATORY EXT Lymphocytes 1.45 0.90 - [place] 2.90 K/uL [facility] LABORATORY EXT Monocytes 0.50 0.00 - [place] 0.90 [facility] LABORATORY EXT Eosinophils 0.10 0.00 - [place] 0.50 /[facility] LABORATORY EXT Basophils 0.05 0.00 - [place] 0.30 /[facility] LABORATORY Specimen (Source) Anatomical Collection Method Collection Time Re ceived Time Location / / Volume Laterality 05/22/2022 10:03 AM CDT [facility] LABORATORY - 10:26 AM CDT This result has an attachment that is no t available. External results verified in Extract by Radha Chaidez on 05/23/2022 at 10:23 AM. Ordering Provider External M.D. LAB BLOOD ADD-ON Performing Organization Address City/[facility] [address]/ZIP Code Phon e Number [facility] [address] [place] [address] Potassium (05/22/2022 10:03 AM CDT)Only the most recent of4 resultswithin the time period is included. P athologist Signature EXT Potassium 4.0 3.6 - 5.1 [place] mmol/L [facility] LABORATORY Specimen (Source) Anatomical Collection Method Collection Time Re ceived Time Location / / Volume Laterality 05/22/2022 10:03 AM CDT Narrative [facility] - 8:24 AM CDT This result has an attachment that is no t available. External results verified in Extract by Mina De La Torre on 05/23/2022 at 08:21 AM. Ordering Provider External M.D. LAB BLOOD ADD-ON Performing Organization Address City/[facility] [address]/ZIP Code Phon e Number [facility] [address] [place] [address] Phosphorus Inorganic (05/22/2022 10:03 AM CDT)Only the most recent of7 results within the time period is included. P athologist Signature EXT Phosphorus 3.5 2.5 - 4.5 [place] (Inorganic), S mg/dL HOSPITAL LABORATORY Specimen (Source) Anatomical Collection Method Collection Time Re ceived Time Location / / Volume Laterality 05/22/2022 10:03 AM CDT Narrative [facility] - 05/23/2022 8:24 AM CDT Source result document attached to Order Number [id number] ([id number]) dated 05/22/2022. External results verified in Extract by Mina De La Torre on 05/23/2022 at 08:21 AM. Ordering Provider External Mukund LAB BLOOD ADD-ON Performing Organization Address [facility] [address]/[facility] e Number [address] [phone] LABORATORY [facility] Magnesium (05/22/2022 10:03 AM CDT)Only the most recent of12 resultswithin the time period is included. athologist Signature EXT Magnesium 2.0 1.5 - 2.6 [place] mg/dL [facility] LABORATORY Specimen (Source) Anatomical Collection Method Collection Time Re ceived Time Location / / Volume Laterality 05/22/2022 10:03 AM CDT Narrative [facility] - 05/23/2022 8:24 AM CDT Source result document attached to Order Number [id number] ([id number]) dated 05/22/2022. External results verified in Extract by Mina De La Torre on 05/23/2022 at 08:21 AM. Ordering Provider Ferny Duval LAB BLOOD ADD-ON Performing Organization Address City/[facility] [address]/[facility] Phon e Number [address] [phone] LABORATORY [facility] (ABNORMAL) Glucose, Random (05/22/2022 10:03 AM CDT)Only the most recent of3 resultswithin the time period is included. P athologist Signature EXT Glucose 124 (H) 60 - 115 [place] mg/dL [facility] LABORATORY Specimen (Source) Anatomical Collection Method Collection Time Re ceived Time Location / / Volume Laterality 05/22/2022 10:03 AM CDT Narrative [facility] - 05/23/2022 8:24 AM CDT Source result document attached to Order Number [id number] ([id number]) dated 05/22/2022. External results verified in Extract by Mina De La Torre on 05/23/2022 at 08:21 AM. Ordering Provider External M.D. LAB BLOOD TROPONIN Performing Organization Address City/[facility] [address]/ZIP Code Phon e Number [address] [phone] LABORATORY [facility] (ABNORMAL) Creatinine with Estimated GFR (05/22/2022 10:03 AM CDT)Only the most recent of3 resultswithin the time period is included. Analysis Performed At Path logist Time Signature EXT Creatinine 2.1 (H) 0.5 - 1.5 [place] mg/dL [facility] LABORATORY Specimen (Source) Anatomical Collection Method Collection Time Re ceived Time Location / / Volume Laterality 05/22/2022 10:03 AM CDT Narrative [facility] - 05/23/2022 8:24 AM CDT Source result document attached to Order Number [id number] ([id number]) dated 05/22/2022. External results verified in Extract by Mina De La Torre on 05/23/2022 at 08:21 AM. Ordering Provider External M.DDavi LAB BLOOD ADD-ON Performing Organization Address City/[facility] [address]/[place] [address], [facility] [phone] LABORATORY [facility] HIV-1 RNA Detect / Quant (05/08/2022 10:50 AM CDT) Patholo gist Method Time Signature EXT HIV-1 RNA Not Detected copies/mL [facility] Detect/Quant, [facility] Specimen (Source) Anatomical Collection Method Collection Time Re ceived Time Location / / Volume Laterality 05/08/2022 10:50 AM CDT Narrative [employer] - 05/15/2022 9:45 AM CDT This result has an attachment that is no t available. External results verified in Extract by Radha Mauricio on 05/15/2022 at 09:43 AM. Ordering Provider External Mukund LAB MICROBIOLOGY - BLO OD ORDERABLES Performing Organization Address City/[facility] [address]/[facility] Phon e Number [employer] [address] [place] [address] HCV RNA Detect / Quant, Serum (05/08/2022 10:50 AM CDT)Only the most recent of2 resultswithin the time period is included. [facility] gist Method Time Signature EXT HCV RNA Not Detected IU/mL [facility] Detect/[facility]if LABORATORIES, ication INC Specimen (Source) Anatomical Collection Method Collection Time Re ceived Time Location / / Volume Laterality 05/08/2022 10:50 AM CDT Narrative [employer] - 05/15/2022 9:49 AM CDT Source result document attached to Order Number [id number] ([id number]) dated 05/08/2022. External results verified in Extract by Radha Mauricio on 05/15/2022 at 09:47 AM. Ordering Provider External Mukund LAB MICROBIOLOGY - BLO OD ORDERABLES Performing Organization Address [facility] Phon e Number [facility] [address] [place] [address] (ABNORMAL) Iothalamate, Glomerular Filtration Rate (04/28/2022 12:13 PM CDT) athologist Signature Uncorrctd 25 mL/min 04/28/2022 JESSICA Iothal Cl 5:39 PM CDT Corrctd Iothal 22 (L) 66 - 120 04/28/2022 JESSICA Cl mL/min/BSA 5:39 PM CDT Comment: ----ADDITIONAL INFORMATION---- This test was developed and its performa nce characteristics determined by [facility] in a manner consistent with CLIA requirements. This test has not been cleared or approved by the U.[place] J[place] d and Drug Administration. Specimen Anatomical Collection Method Collection Time Receive d Time (Source) Location / / Volume Laterality Varies (Blood, 04/28/2022 12:13 2 2:19 Venous) PM CDT PM CDT Narrative [facility] - [facility] - 04/28/2022 5:39 PM CDT Specimen Information: Specimen ID: [id number] Specimen Type: Varies Specimen Collection Start Date: 2 12:13 PM Specimen Received Date: 04/28/2022 ??2:19 PM Specimen ID: [id number] Specimen Type: Varies Specimen Collection Start Date: 2 ??1:16 PM Specimen Received Date: 04/28/2022 ??2:19 PM Specimen ID: [id number] Specimen Type: Varies Specimen Collection Start Date: 2 ??2:01 PM Specimen Received Date: 04/28/2022 ??2:19 PM Specimen ID: [id number] Specimen Type: Varies Specimen Collection Start Date: 2 ??1:22 PM Specimen Received Date: 04/28/2022 ??2:19 PM Specimen ID: [id number] Specimen Type: Varies Specimen Collection Start Date: 2 ??2:06 PM Specimen Received Date: 04/28/2022 ??2:19 PM Patricia Cox M.D. LAB BLOOD NON ADD-ON Performing Organization Address City/State/ZIP Code Phon e Number [facility] - [address] [place] [address] [address] [place] [address] [facility] [address] [facility] (ABNORMAL) Comprehensive Metabolic Panel (04/28/2022 11:43 AM CDT)Only the most recent of3 resultswithin the time period is included. Analysis Performed At Patho logist Time Signature Potassium, S 5.0 3.6 - 5.2 04/28/2022 [facility] mmol/L 2:10 PM CDT Sodium, S 141 135 - 145 04/28/2022 [facility] mmol/L 2:10 PM CDT Chloride, S 109 (H) 98 - 107 04/28/2022 [facility] mmol/L 2:10 PM CDT Bicarbonate, S 16 (L) 22 - 29 04/28/2022 [facility] mmol/L 2:10 PM CDT Anion Gap 16 (H) 7 - 15 04/28/2022 DTL 2:10 PM CDT BUN (Blood Urea 34 (H) 6 - 21 04/28/2022 DTL Nitrogen), S mg/dL 2:10 PM CDT Creatinine 2.25 (H) 0.59 - 04/28/2022 DTL 1.04 mg/dL 2:10 PM CDT Estimated GFR 24 (L) >=60 04/28/2022 DTL (eGFR) mL/min/BSA 2:10 PM CDT Comment: Estimated GFR calculated using the 2020 CKD_EPI creatinine equation. Calcium, Total, S 9.5 8.8 - 10.2 mg/dL 04/28/2022 2:10 PM CDT DTL Glucose, S 213 (H) 70 - 140 mg/dL 04/28/2022 2:10 PM CDT D TL Protein, Total, S 6.2 (L) 6.3 - 7.9 g/dL 04/28/2022 2:10 P M CDT DTL Albumin, S 4.5 3.5 - 5.0 g/dL 04/28/2022 2:10 PM CDT D TL Aspartate Aminotransferase 18 8 - 43 U/L 04/28/2022 2 :10 PM CDT DTL (AST), S Alkaline Phosphatase, S 154 (H) 35 - 104 U/L 04/28/2022 2: 10 PM CDT DTL Alanine Aminotransferase 19 7 - 45 U/L 04/28/2022 2:1 0 PM CDT DTL (ALT), S Bilirubin, Total, S 0.4 <=1.2 mg/dL 04/28/2022 2:10 PM CDT DTL Specimen Anatomical Collection Method Collection Time Receive d Time (Source) Location / / Volume Laterality Blood (Blood, 04/28/2022 11:43 04/28/2022 Venous) AM CDT 12:14 PM CDT Ayan Lemus M.D. LAB BLOOD ADD-ON Performing Organization Address City/State/ZIP Code Phon e Number [facility] - [address] [address] Laboratories-[address] (ABNORMAL) Bacterial Culture, Aerobic + Susc, Urine (04/27/2022 9:31 AM CDT)Only the most recent of5 resultswithin the time period is included. Component Value Ref Test Analysis Performed At [facility] gist Range Method Time Signature Urine With urogenital microbiota, susceptibilities not 04/30/2022 DTL Culture performed per laboratory criteria. 2:33 PM CDT (A) Urine AEROCOCCUS URINAE 04/30/2022 DTL Culture >100,000 cfu/mL 2:33 PM CDT (A) Specimen Anatomical Collection Method Collection Time Receive d Time (Source) Location / / Volume Laterality Urine (Urine, 04/27/2022 9:31 AM 04/27/20 22 Midstream) CDT 10:06 AM CDT Comment: Specimen Source Site: Urine Organism Antibiotic Method Susceptibility Aerococcus urinae Penicillin SUSCEPTIBILITY, MAYA (MCG/ML) < =0.06 mcg/mL: Susceptible Aerococcus urinae Ceftriaxone SUSCEPTIBILITY, MAYA (MCG/ML) < =0.5 mcg/mL: Susceptible Aerococcus urinae Vancomycin SUSCEPTIBILITY, MAYA (MCG/ML) < =1 mcg/mL: Susceptible An Nicholas APRN, C.N.P., D.N.P., M.S.N. LAB MICRO BIOLOGY - GENERAL ORDERABLES Performing Organization Address [facility] Phon e Number [facility] - [address] MS CYSTHRSCPY RMVL FB/STENT CMPLX (04/27/2022 9:07 AM CDT) Specimen (Source) Anatomical Location Collection Method / Collectio n Time Received Time / Laterality Volume Narrative Katherine Eduardo APRN, C.N.P., D.N.P. - 04/27/2022 9:07 AM CDT Katherine Eduardo APRN, C.NDaviPDavi, D.N.P. ? 04/27/2022 ??9:09 AM Cysto w/stent removal Date/Time: 04/27/2022 9:07 AM Performed by: Kathernie Eduardo APRN, C .N.P., D.N.P. Authorized by: An Nicholas APRN, C .N.P., Michelle.N.P., M.S.N. Care team members present 1. Katherine Eduardo APRN, C.N.PDavi, Michelle.N. PDavi 2. Bharti Angeles ?? foreign body Additional procedures performed: cystosc opy and stent removal ?? PROCEDURE DETAILS Ureteral stent removed: ??Side performed: ??Transplant Removal: complex ?Reason for stent complexity: Dual ure teral stent removal CONSENT Consent obtained: verbal Consent given by: patient The benefits, risks and alternatives to the procedure and the potential need for sedation or anesthesia as well as the names, roles, and responsibilities of healthcare team memb ers performing significant interventional tasks were discussed with the patient and/or decision maker. [employer] All relevant documentation and testing w ere reviewed and available. All required blood products, implants, devic es and or special equipment were made available as applicable. Pre-proced ure verification was conducted and the correct site was marked if required. A fire risk assessment was done as applicable. The procedural time-out t o verify correct patient, correct side/site, and procedure was conducted p rior to performing the procedure and confirmed in a procedural pause. PRE-PROCEDURE DETAILS Procedure purpose: ??Diagnostic Appropriate hand hygiene, gown, cap, mas k, protective eyewear, sterile gloves, skin preparation, sterile drape, and strict aseptic technique were utilized as applicable for the procedure .: yes ?? Site preparation: ??Povidone-iodine SEDATION / ANESTHESIA Anesthesia method: none POST-PROCEDURE DETAILS Procedure completed successfully: yes ?? Complications: no apparent complications ?? An Nicholas APRN, C.N.P., D.N.P., M.S.N. UROLOGY O RDERABLES (ABNORMAL) Renal Function Panel (04/25/2022 8:12 AM CDT)Only the most recent of6 resultswithin the time period is included. Analysis Performed At Patho logist Time Signature Potassium, S 3.7 3.6 - 5.2 04/25/2022 DTL mmol/L 9:32 AM CDT Sodium, S 141 135 - 145 04/25/2022 DTL mmol/L 9:32 AM CDT Chloride, S 106 98 - 107 04/25/2022 DTL mmol/L 9:32 AM CDT Bicarbonate, S 21 (L) 22 - 29 04/25/2022 DTL mmol/L 9:32 AM CDT Anion Gap 14 7 - 15 04/25/2022 DTL 9:32 AM CDT BUN (Blood Urea 50 (H) 6 - 21 04/25/2022 DTL Nitrogen), S mg/dL 9:32 AM CDT Creatinine 2.48 (H) 0.59 - 04/25/2022 DTL 1.04 mg/dL 9:32 AM CDT Estimated GFR 21 (L) >=60 04/25/2022 DTL (eGFR) mL/min/BSA 9:32 AM CDT Comment: Estimated GFR calculated using the 2020 CKD_EPI creatinine equation. Calcium, Total, S 9.4 8.8 - 10.2 mg/dL 04/25/2022 9:32 AM CDT DTL Glucose, S 150 (H) 70 - 140 mg/dL 04/25/2022 9:32 AM CDT D TL Albumin, S 4.4 3.5 - 5.0 g/dL 04/25/2022 9:32 AM CDT D TL Phosphorus (Inorganic), S 2.0 (L) 2.5 - 4.5 mg/dL 04/25/20 22 9:32 AM CDT DTL Specimen Anatomical Collection Method Collection Time Receive d Time (Source) Location / / Volume Laterality Blood (Blood, 04/25/2022 8:12 AM 04/25/20 8:47 Venous) CDT AM CDT Jeni Cantrell M.D. LAB BLOOD ADD-ON Performing Organization Address City/State/ZIP Code Phon e Number [facility] - [address] [place], [place] [address] [facility] [place] [address] Laboratories-[facility] [address] (ABNORMAL) Protein, Total, 24 HR, Urine (04/22/2022 11:39 AM CDT) athologist Signature Total Protein, 715 (H) <229 mg/24 04/23/2022 DTL 24 HR, U h 9:17 AM CDT Collection 24 h 04/23/2022 DTL Duration 7:47 AM CDT Urine Volume 2858 mL 04/23/2022 DTL 7:47 AM CDT Specimen Anatomical Collection Method Collection Time Receive d Time (Source) Location / / Volume Laterality Urine (Urine, 24 04/22/2022 11:39 022 7:47 Hours) AM CDT AM CDT Patricia Cox M.D. LAB URINE ORDERABLES Performing Organization Address City/[facility] Code Phon e Number [facility] - 200 [place], [place] [address] [address] [place] [address] Laboratories-[facility] 200 [facility] (ABNORMAL) Albumin, 24 Hour Collection, Urine (04/22/2022 11:39 AM CDT) athologist Signature Albumin, 24 256 (H) <30 mg/24 04/23/2022 DTL Hr, U h 10:02 AM CDT Comment: ----ADDITIONAL INFORMATION---- This test has been modified from the man ufacturer's instructions. Its performance characteri stics were determined by [facility] in a manner co nsistent with CLIA requirements. This test has not bee n cleared or approved by the U.S. Food and Drug Admin istration. Collection Duration 24 h 04/23/2022 7:47 AM C DT DTL Urine Volume 2858 mL 04/23/2022 7:47 AM CDT DTL Albumin Excretion Rate 178 (H) <20 mcg/min 04/23/2022 10:0 2 AM CDT DTL Specimen Anatomical Collection Method Collection Time Receive d Time (Source) Location / / Volume Laterality Urine (Urine, 24 04/22/2022 11:39 022 9:04 Hours) AM CDT AM CDT Patricia Cox M.D. LAB URINE ORDERABLES Performing Organization Address City/State/ZIP Code Phon e Number [facility] - [address] (ABNORMAL) Dipstick, Urine (04/21/2022 11:05 AM CDT)Only the most recent of4 resultswithin the time period is included. [facility] Method Time Signature Hemoglobin, Moderate (A) Negative 04/21/2022 DTL QL 1:13 PM CDT Leukocyte Small (A) Negative 04/21/2022 DTL Esterase, U 1:13 PM CDT Nitrite, U Negative Negative 04/21/2022 DTL 1:13 PM CDT Ketones, U Negative Negative 04/21/2022 DTL mg/dL 1:13 PM CDT Glucose, U 1,000 Negative 04/21/2022 DTL mg/dL 1:13 PM CDT Specimen Anatomical Collection Method Collection Time Receive d Time (Source) Location / / Volume Laterality Urine 04/21/2022 11:05 04/21/2022 AM CDT 12:05 PM CDT Patricia Cox M.D. LAB URINE ORDERABLES Performing Organization Address City/State/ZIP Code Phon e Number [facility] - [address] [place] [address] (ABNORMAL) Microscopic Manual (04/21/2022 11:05 AM CDT)Only the most recent of4 resultswithin the time period is included. [facility] Method Time Signature Microscopy Abnormal 04/21/2022 DTL 2:34 PM CDT RBC 21-30 (A) <3 /hpf 04/21/2022 DTL 2:34 PM CDT Dysmorphic RBC <25 <25 % 04/21/2022 DTL 2:34 PM CDT WBC 4-10 /hpf 04/21/2022 DTL 2:34 PM CDT Comment: ----REFERENCE VALUE---- 1-3 ??(Males) 1-10 (Females) Bacteria Present (A) 04/21/2022 2:34 PM CDT DTL Specimen Anatomical Collection Method Collection Time Receive d Time (Source) Location / / Volume Laterality Urine 04/21/2022 11:05 04/21/2022 1:13 AM CDT PM CDT Patricia Cox M.D. LAB URINE ORDERABLES Performing Organization Address City/[facility] [address]/[facility] Code Phon e Number [facility] - [address] pH, Urine (04/21/2022 11:05 AM CDT)Only the most recent of3 resultswithin the time period is included. athologist Signature pH, U 5.9 4.5 - 8.0 04/21/2022 12:37 DTL PM CDT Specimen Anatomical Collection Method Collection Time Receive d Time (Source) Location / / Volume Laterality Urine 04/21/2022 11:05 04/21/2022 AM CDT 12:05 PM CDT Patricia Cox M.D. LAB URINE ORDERABLES Performing Organization Address City/[facility] [address]/[facility] Code Phon e Number [facility] - [address] Osmolality, Urine (04/21/2022 11:05 AM CDT)Only the most recent of3 results within the time period is included. athologist Signature Osmolality, U 367 150 - 1150 04/21/2022 DTL mOsm/kg 12:37 PM CDT Specimen Anatomical Collection Method Collection Time Receive d Time (Source) Location / / Volume Laterality Urine 04/21/2022 11:05 04/21/2022 AM CDT 12:05 PM CDT Patricia Cox M.D. LAB URINE ORDERABLES Performing Organization Address City/[facility] [address]/ZIP [facility] Phon e Number [facility] - [address] (ABNORMAL) Urinalysis with Microscopic: Urine, Midstream (04/21/2022 11:05 AM CDT)Only the most recent of4 resultswithin the time period is included. [facility] gist Method Time Signature Source Midstream 04/21/2022 DTL 12:05 PM CDT Color, U Yellow 04/21/2022 DTL 12:05 PM CDT Clarity, U Clear 04/21/2022 DTL 12:05 PM CDT Protein, U 70 (H) <26 mg/dL 04/21/2022 DTL 1:03 PM CDT Protein/Osmol 1.91 (H) <0.42 04/21/2022 DTL ality ratio 1:03 PM CDT Predicted 24 1202 mg/24 h 04/21/2022 DTL Hr Protein 1:03 PM CDT Predicted 297-4868 mg/24 h 04/21/2022 DTL Range 1:03 PM CDT Comment Micro done on 04/21/2022 DTL <10 mL 2:32 PM CDT Specimen Anatomical Collection Method Collection Time Receive d Time (Source) Location / / Volume Laterality Urine (Urine, 04/21/2022 11:05 04/21/2022 Midstream) AM CDT 12:05 PM CDT Patricia Cox M.D. LAB URINE ORDERABLES Performing Organization Address City/State/ZIP Code Phon e Number [facility] - [address] [place] [address] 05 [facility] [place] [address] Laboratories-[facility] 200 [facility] BMD Bone Density Spine Hips (04/21/2022 9:05 AM CDT) Anatomical Region Laterality Modality Hip, Lumbar Spine, Nuclear Medicine RST LOS, N/A Radiographic Imaging Musculoskeletal ARZ LOS, Muskuloskeletal FLA LOS Specimen (Source) Anatomical Collection Method Collection Time Re ceived Time Location / / Volume Laterality 04/21/2022 11:56 AM CDT Impressions 04/21/2022 11:57 AM CDT Osteoporosis DualFemur (region: Neck Lef t) Narrative 04/21/2022 11:57 AM CDT EXAM: ??BMD BONE DENSITY SPINE HIPS Bone Mineral Density (BMD) analysis perf ormed on [employer] with serial number [id number]. ? FINDINGS: Left Hip: Femur Neck: BMD = 0.686 g/cm2 T-score = -2.5 ?Z-score = -1.9 Total Hip: BMD = 0.815 g/cm2 T-score = -1.5 ?Z-score = -1.2 Right Hip: Femur Neck: BMD = 0.775 g/cm2 T-score = -1.9 ?? Z-score = -1.2 Total Hip: BMD = 0.830 g/cm2 T-score = -1.4 ?Z-score = -1.1 Lumbar Spine: L1: BMD = 1.070 g/cm2 L2: BMD = 1.070 g/cm2 L3: BMD = 1.218 g/cm2 L4: BMD = 1.157 g/cm2 Total Lumbar Spine (L1-L4 (L3)): BMD = 1 .102 g/cm2 T-score = -0.7 ?Z-score = -0.4 ? Trabecular Bone Score: L1-L4 (L3): TBS = 1.273 < 1.23: low 1.23 -1.31: borderline ?? > 1.31: normal ?? A low TBS has been associated with incre ased risk of fractures in certain populations. TBS should not be used alone to determine treatment recommendations. It can be used in conjunction with BMD and FRAX to inform management. Please note: A more comprehensive DXA re port, including images and graphs, is available in [employer]S. In the absence of other causes of low BM D or demonstrated skeletal fragility, osteoporosis may be diagnosed in post-menopausal women and m en at or above age 50 when the T-score is at or below -2.5 as defined by the WHO. Low bone density is present at T-scores between -1 and - 2.5. The diagnosis in pre-menopausal women and men < age 50 ca n be based on low bone density or evidence of skeletal fragility in the appropriate clinical se tting. Degenerative changes are present which m ay spuriously elevate the spine BMD measurement. Patient does not meet ISCD guidelines fo r FRAX calculations. (T-score) Procedure Note Ángel Arcos M.D. - 04/21/2022Format ting of this note might be different from the original. EXAM: BMD BONE DENSITY SPINE HIPS Bone Mineral Density (BMD) analysis perf ormed on [employer] with serial number [id number]. FINDINGS: Left Hip: Femur Neck: BMD = 0.686 g/cm2 T-score = -2.5 Z-score = -1.9 Total Hip: BMD = 0.815 g/cm2 T-score = -1.5 Z-score = -1.2 Right Hip: Femur Neck: BMD = 0.775 g/cm2 T-score = -1.9 Z-score = -1.2 Total Hip: BMD = 0.830 g/cm2 T-score = -1.4 Z-score = -1.1 Lumbar Spine: L1: BMD = 1.070 g/cm2 L2: BMD = 1.070 g/cm2 L3: BMD = 1.218 g/cm2 L4: BMD = 1.157 g/cm2 Total Lumbar Spine (L1-L4 (L3)): BMD = 1 .102 g/cm2 T-score = -0.7 Z-score = -0.4 Trabecular Bone Score: L1-L4 (L3): TBS = 1.273 < 1.23: low 1.23 -1.31: borderline > 1.31: normal A low TBS has been associated with incre ased risk of fractures in certain populations. TBS should not be used alone to determine treatment recommendations. It can be used in conjunction with BMD and FRAX to inform management. Please note: A more comprehensive DXA re port, including images and graphs, is available in [employer]. In the absence of other causes of low BM D or demonstrated skeletal fragility, osteoporosis may be diagnosed in post-menopausal women and m en at or above age 50 when the T-score is at or below -2.5 as defined by the WHO. Low bone density is present at T-scores between -1 and - 2.5. The diagnosis in pre-menopausal women and men < age 50 ca n be based on low bone density or evidence of skeletal fragility in the appropriate clinical se tting. Degenerative changes are present which m ay spuriously elevate the spine BMD measurement. Patient does not meet ISCD guidelines fo r FRAX calculations. (T-score) IMPRESSION: Osteoporosis DualFemur (region: Neck Lef t) Patricia WESTFALL DXA PROCEDURES RONNA DNA Detect/Quant (04/21/2022 7:45 AM CDT) Patholo gist Method Time Signature BKV DNA Undetected Undetected 04/21/2022 [facility] Detect/Quant, IU/mL 6:25 PM CDT P Comment: Result in log IU/mL is Undetected. ----ADDITIONAL INFORMATION---- The quantification range of this assay i s 22 to 100,000,000 IU/mL (1.34 log to 8.00 log IU/mL). Testing was performe d using the barrett BKV test ([employer] with the barrett [id number] System. Specimen Anatomical Collection Method Collection Time Receive d Time (Source) Location / / Volume Laterality Blood (Blood, 04/21/2022 7:45 AM 04/21/20 22 Venous) CDT 10:15 AM CDT Patricia Cox M.D. LAB MICROBIOLOGY - BLOOD ORD ERABLES Performing Organization Address City/State/ZIP Code Phon e Number [facility] [address] [place], [place] [address] [place] [id number] [place] (ABNORMAL) Lipid Panel (04/21/2022 7:45 AM CDT) athologist Signature Triglycerides 248 (H) mg/dL 04/21/2022 DTL 8:42 AM CDT Comment: ----REFERENCE VALUE---- Normal: <150 mg/dL Borderline High: 150-199 mg/dL High: 200-499 mg/dL Very High: > or =500 mg/dL Cholesterol, Total 176 mg/dL 04/21/2022 8:42 AM CD T DTL Comment: ----REFERENCE VALUE---- Desirable: < 200 mg/dL Borderline High: 200 - 239 mg/dL High: > or = 240 mg/dL Cholesterol, LDL, Calculated 84 mg/dL 04/21/2022 8:42 AM CDT DTL Comment: ----REFERENCE VALUE---- Desirable: <100 mg/dL Above Desirable: 100-129 mg/dL Borderline High: 130-159 mg/dL High: 160-189 mg/dL Very High: >=190 mg/dL ----ADDITIONAL INFORMATION---- LDL cholesterol calculated using the Smith/NIH equation. Cholesterol, HDL, S 51 >=50 mg/dL 04/21/2022 8:42 AM CDT DTL Cholesterol, Non-HDL, Calculated 125 mg/dL 022 8:42 AM CDT DTL Comment: ----REFERENCE VALUE---- Desirable: <130 mg/dL Above Desirable: 130-159 mg/dL Borderline High: 160-189 mg/dL High: 190-219 mg/dL Very High: > or =220 mg/dL Fasting (8 HR or more) No 04/21/2022 8:22 A M CDT DTL Specimen Anatomical Collection Method Collection Time Receive d Time (Source) Location / / Volume Laterality Blood (Blood, 04/21/2022 7:45 AM 04/21/20 8:22 Venous) CDT AM CDT Patricia Cox M.D. LAB BLOOD ADD-ON Performing Organization Address City/State/ZIP Code Phon e Number [facility] - [address] [place] [phone] [facility] [place] [address] Laboratories-[facility] 200 [facility] Hepatic Function Panel (04/21/2022 7:45 AM CDT) [facility] gist Method Time Signature Bilirubin, Total, S 0.6 <=1.2 04/21/2022 DTL mg/dL 8:42 AM CDT Bilirubin, Direct, S 0.2 0.0 - 0.3 04/21/2022 DTL mg/dL 8:42 AM CDT Aspartate 12 8 - 43 04/21/2022 DTL Aminotransferase U/L 8:42 AM CDT (AST), S Alanine 10 7 - 45 04/21/2022 DTL Aminotransferase U/L 8:42 AM CDT (ALT), S Alkaline 100 35 - 104 04/21/2022 DTL Phosphatase, S U/L 8:42 AM CDT Albumin, S 4.6 3.5 - 5.0 04/21/2022 DTL g/dL 8:42 AM CDT Protein, Total, S 6.6 6.3 - 7.9 04/21/2022 DTL g/dL 8:42 AM CDT Specimen Anatomical Collection Method Collection Time Receive d Time (Source) Location / / Volume Laterality Blood (Blood, 04/21/2022 7:45 AM 04/21/20 22 8:22 Venous) CDT AM CDT Patricia Cox M.D. LAB BLOOD ADD-ON Performing Organization Address City/[facility] [address] [facility] Phon e Number [facility] - [address] [place], [place] [address] [address] [place] [address] Laboratories-[facility] [address] (ABNORMAL) Mycophenolic Acid (04/21/2022 7:45 AM CDT) [facility] gist Method Time Signature Mycophenolic Acid 6.3 (H) 1.0 - 3.5 04/21/2022 SDSC mcg/mL 12:13 PM CDT MPA Glucuronide 217 (H) 35 - 100 04/21/2022 SDSC mcg/mL 12:13 PM CDT Comment: ----ADDITIONAL INFORMATION---- Target steady-state trough concentration s vary depending on the type of transplant, concomitant immunosuppressio n, clinical/institutional protocols, and time post-transplant. Results should be interpreted in conjunction with this clinical information and any physic al signs/symptoms of rejection/toxicity. Testing performed by Liquid Chromatograp hy-Tandem Mass Spectrometry (LC-MS/MS). This test was developed and its performa nce characteristics determined by [facility] in a manner consistent with CLIA requirements. This test has not been cleared or approved by the [place] d and Drug Administration. Specimen Anatomical Collection Method Collection Time Receive d Time (Source) Location / / Volume Laterality Blood (Blood, 04/21/2022 7:45 AM 04/21/20 22 Venous) CDT 10:06 AM CDT Patricia Cox M.D. LAB BLOOD NON ADD-ON Performing Organization Address City/[facility] [address]/ZIP Code Phon e Number [facility] [address] [place], [place] [address] [place] [address] [facility] [address] [place] [address] Dr. [place] 25-Hydroxyvitamin D2 and D3 (04/21/2022 7:45 AM CDT) athologist Signature 25-Hydroxy D2 <4.0 ng/mL 04/25/2022 SDSC 3:41 PM CDT 25-Hydroxy D3 28 ng/mL 04/25/2022 SDSC 3:41 PM CDT 25-Hydroxy D 28 ng/mL 04/25/2022 [facility] Total 3:41 PM CDT Comment: ----REFERENCE VALUE---- 25-HYDROXY D TOTAL (D2+D3) Optimum level s in the healthy population are 20-50, patients with bone disease may benefit from higher levels within this r willie. ----ADDITIONAL INFORMATION---- This test was developed and its performa nce characteristics determined by [facility] in a manner consistent with CLIA requirements. This test has not been cleared or approved by the [place] d and Drug Administration. Specimen Anatomical Collection Method Collection Time Receive d Time (Source) Location / / Volume Laterality Blood (Blood, 04/21/2022 7:45 AM 04/21/20 22 9:52 Venous) CDT AM CDT Patricia Cox M.D. LAB BLOOD ADD-ON Performing Organization Address City/[facility] [address]/[facility] Phon e Number [facility] [address] [place], [place] [address] [place] [address] [place] [address] Dr. [place] (ABNORMAL) Troponin T, 5th Generation (04/21/2022 7:44 AM CDT)Only the most recent of2 resultswithin the time period is included. athologist Signature Troponin T, 5th 92 (H) <=10 ng/L 04/21/2022 DT gen 8:33 AM CDT Specimen Anatomical Collection Method Collection Time Receive d Time (Source) Location / / Volume Laterality Blood (Blood, 04/21/2022 7:44 AM 04/21/20 22 8:15 Venous) CDT AM CDT Patricia Cox M.D. LAB BLOOD ADD-ON Performing Organization Address City/State/[facility] Phon e Number [facility] - [address] [place], [place] [address] [address] [place], [place] [phone] [place] [address]-[facility] [address] (ABNORMAL) Parathyroid Hormone (PTH) (04/21/2022 7:44 AM CDT) Analysis Performed At Patho logist Time Signature Parathyroid 446 (H) 15 - 65 04/21/2022 DTL Hormone (PTH), S pg/mL 8:48 AM CDT Specimen Anatomical Collection Method Collection Time Receive d Time (Source) Location / / Volume Laterality Blood (Blood, 04/21/2022 7:44 AM 04/21/20 8:22 Venous) CDT AM CDT Patricia Cox M.D. LAB BLOOD ADD-ON Performing Organization Address City/[facility] [address]/[facility] Phon e Number [facility] - 200 [place], [place] [address] 05 [facility] [place] [address] (ABNORMAL) APTT (Activated Partial Thromboplastin Time) (04/11/2022 7:29 AM CDT) Only the most recent of2 resultswithin the time period is included. P athologist Signature Activated 21 (L) 25 - 37 04/11/2022 DTL Partial sec 8:25 AM CDT Thrombopl Time, P Specimen Anatomical Collection Method Collection Time Receive d Time (Source) Location / / Volume Laterality Blood (Blood, 04/11/2022 7:29 AM 04/11/20 7:43 Venous) CDT AM CDT Tony Burton, Mukund Otoole LAB BLOOD ADD-ON Performing Organization Address City/[facility] [address]/[facility] Phon e Number [facility] - 200 [place] [address] [address] [facility] [place] [address] Laboratories-[address] Prothrombin Time (PT) (04/11/2022 7:29 AM CDT)Only the most recent of2 results within the time period is included. P athologist Signature Prothrombin 12.4 9.4 - 12.5 04/11/2022 DTL Time, P sec 8:25 AM CDT INR 1.1 0.9 - 1.1 04/11/2022 DTL 8:25 AM CDT Comment: ----ADDITIONAL INFORMATION---- Standard intensity warfarin therapeutic range: 2.0 to 3.0 ?? High intensity warfarin therapeutic rang e: 2.5 to 3.5 Specimen Anatomical Collection Method Collection Time Receive d Time (Source) Location / / Volume Laterality Blood (Blood, 04/11/2022 7:29 AM 04/11/20 7:43 Venous) CDT AM CDT Tony Burton, Mukund Otoole LAB BLOOD ADD-ON Performing Organization Address City/[facility] [address]/[facility] Code Phon e Number [facility] - 200 [place], [place] [address] [address] [facility] [place] [address] Laboratories-[facility] 200 [facility] (ABNORMAL) CBC without Differential (04/11/2022 7:29 AM CDT)Only the most recent of4 resultswithin the time period is included. [facility] gist Method Time Signature Hemoglobin 9.4 (L) 11.6 - 04/11/2022 DTL 15.0 g/dL 7:55 AM CDT Hematocrit 30.8 (L) 35.5 - 04/11/2022 DTL 44.9 % 7:55 AM CDT Erythrocytes 3.20 (L) 3.92 - 04/11/2022 DTL 5.13 7:55 AM CDT x10(12)/L MCV 96.3 78.2 - 04/11/2022 DTL 97.9 fL 7:55 AM CDT RBC Distrib Width 15.1 12.2 - 04/11/2022 DTL 16.1 % 7:55 AM CDT Platelet Count 137 (L) 157 - 371 04/11/2022 DTL x10(9)/L 7:55 AM CDT Leukocytes 7.6 3.4 - 9.6 04/11/2022 DTL x10(9)/L 7:55 AM CDT Specimen Anatomical Collection Method Collection Time Receive d Time (Source) Location / / Volume Laterality Blood (Blood, 04/11/2022 7:29 AM 04/11/20 7:43 Venous) CDT AM CDT An Nicholas APRN C.N.P., D.N.P., M.S.N. LAB BLOOD ADD-ON Performing Organization Address City/[facility] [address]/[facility] Phon e Number [facility] - [address] [place] [address] [address] [facility] [place] [address] [facility] 200 [facility] (ABNORMAL) Glucose, POCT (04/09/2022 12:26 PM CDT)Only the most recent of7 resultswithin the time period is included. P athologist Signature Glucose, POCT, 162 (H) 70 - 140 04/09/2022 PCDE B mg/dL 12:29 PM CDT Specimen Anatomical Collection Method Collection Time Receive d Time (Source) Location / / Volume Laterality Blood 04/09/2022 12:26 04/09/2022 PM CDT 12:29 PM CDT Unknown Provider LAB POCT ORDERABLES-MANUAL Performing Organization Address City/State/ZIP Code Phon e Number [facility] [address] [place] [address] SERVICES PCDE [facility] [place] [address] (ABNORMAL) Basic Metabolic Panel (04/09/2022 5:27 AM CDT)Only the most recent of 3 resultswithin the time period is included. Analysis Performed At Patho logist Time Signature Potassium, S 4.8 3.6 - 5.2 04/09/2022 DTL mmol/L 6:35 AM CDT Sodium, S 131 (L) 135 - 145 04/09/2022 DTL mmol/L 6:35 AM CDT Chloride, S 94 (L) 98 - 107 04/09/2022 DTL mmol/L 6:35 AM CDT Bicarbonate, S 18 (L) 22 - 29 04/09/2022 DTL mmol/L 6:35 AM CDT Anion Gap 19 (H) 7 - 15 04/09/2022 DTL 6:35 AM CDT BUN (Blood Urea 63 (H) 6 - 21 04/09/2022 DTL Nitrogen), S mg/dL 6:35 AM CDT Creatinine 7.22 (H) 0.59 - 04/09/2022 DTL 1.04 mg/dL 6:35 AM CDT eGFR-Non <15 (L) >=60 04/09/2022 DTL Black/ mL/min/BSA 6:35 AM CDT [place] Comment: ----ADDITIONAL INFORMATION---- Estimated GFR calculated using the 2009 CKD_EPI creatinine equation. eGFR-Black/ <15 (L) >=60 mL/min/BSA 2021 6:35 AM CDT DTL Comment: ----ADDITIONAL INFORMATION---- Estimated GFR calculated using the 2009 CKD_EPI creatinine equation. Calcium, Total, S 8.5 (L) 8.8 - 10.2 mg/dL 04/09/2022 6:35 AM CDT DTL Glucose, S 130 70 - 140 mg/dL 04/09/2022 6:35 AM CDT D TL Specimen Anatomical Collection Method Collection Time Receive d Time (Source) Location / / Volume Laterality Blood (Blood, 04/09/2022 5:27 AM 04/09/20 6:10 Venous) CDT AM CDT Dunia Vargas M.D. LAB BLOOD ADD-ON Performing Organization Address City/State/ZIP Code Phon e Number [facility] - [address] [place] [address] [address] [facility] [place] [address] Laboratories-[facility] 200 [facility] ECG 12 Lead (04/07/2022 7:47 AM CDT)Only the most recent of2 resultswithin the time period is included. P athologist Signature Ventricular Rate 64 BPM MUSE ECG/Min MS Interval 196 ms MUSE QRSD Interval 90 ms MUSE QT Interval 440 ms MUSE QTC Interval 453 ms MUSE P Agency 41 degrees MUSE R Agency -25 degrees MUSE T Wave Agency 31 degrees MUSE Specimen Anatomical Collection Method Collection Time Receive d Time (Source) Location / / Volume Laterality 04/07/2022 7:47 AM 7:50 CDT AM CDT Impressions MUSE - 04/07/2022 7:50 AM CDT Normal sinus rhythm Nonspecific ST and T wave abnormality When compared with ECG of 06-APR-2022 15 :09, QRS voltage has increased Reviewed by REI Pop Narrative This result has an attachment that is no t available. Procedure Note Daniel Jenkins M.D. - 04/07/2022Form atting of this note might be different from the original. IMPRESSION: Normal sinus rhythm Nonspecific ST and T wave abnormality When compared with ECG of 18-AUG-2022 15 :09, QRS voltage has increased Reviewed by REI Pop An Nicholas APRN, C.N.P., D.N.P., M.S.N. ECG ORDER JS Performing Organization Address City/State/ZIP Code Phon e Number MUSE MUSE NA US Kidney Transplant Left with Doppler (04/06/2022 11:33 PM CDT) Anatomical Region Laterality Modality Abdomen, Pelvis, Renal, Ultrasound RST LOS, Ultrasound ARZ L OS, Left Ultrasound Ultrasound FLA LOS Specimen (Source) Anatomical Collection Method Collection Time Re ceived Time Location / / Volume Laterality 04/07/2022 12:24 AM CDT Impressions 04/07/2022 7:37 AM CDT Normal sonographic evaluation of left lower quadrant renal transplant with patent vasculature. Narrative 04/07/2022 7:37 AM CDT EXAM: US KIDNEY TRANSPLANT LEFT WITH DOPPLER Exam performed with color and spectral D oppler analysis. COMPARISON: None. FINDINGS: Transplant date: 04/06/2022. Location: Left lower quadrant. Webb scale data Transplant renal length: 10.2 cm Parenchymal echogenicity: Normal. Renal mass: None detected. Hydronephrosis: None. Peritransplant fluid collection: None. Doppler data Intrarenal RI: 0.71 RI upper 0.70 RI mid 0.70 RI lower Iliac artery velocity: 98 cm/s (above anastomosis) 95 cm/s (near anastomosis) Renal artery velocity: 139 cm/s anast 126 cm/s prox 135 cm/s mid 97 cm/s distal Renal to iliac artery velocity ratio (RI R): 1.4 Renal artery: Patent Renal vein patency: Patent. Ipsilateral common femoral artery: Paten t. Additional comments: None. Dunia Vargas M.D. 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 Negative for postoperative purposes. Reg ateral ureteral stents. Surgical clips. Indwelling urinary bladder catheter. Narrative 04/07/2022 9:15 AM CDT EXAM: ??DX ABDOMEN PORTABLE ANTERIOR POSTERIOR 1 VIEW Procedure Note Mauri, Daniel Hines M.D. - 04/07/2022Format ting of this note might be different from the original. EXAM: DX ABDOMEN PORTABLE ANTERIOR POSTE RIOR 1 VIEW IMPRESSION: Postoperative changes related to left lo wer quadrant renal allograft transplantation. Negative for postoperative purposes. Reg ateral ureteral stents. Surgical clips. Indwelling urinary bladder catheter. Radha [facility] PROCE [facility] Renal Pathology (04/06/2022 9:47 PM CDT) Component Value Ref Test Analysis Performed Pathologis t Range Method Time At Signature 04/10/2022 DRBX 3:07 PM CDT Report Carolin Rivas M.D. 04/10/2022 DRB X electronically 3:07 PM signed by CDT I verify that I have examined all relevant slides/materials for the specimen(s) and rendered or confirmed the diagnosis. Gross Light Microscopy: Received in formalin for light 04/10/2022 DRBX Description microscopy: 1 piece(s) of tissue measuring 1.7 x 0.04 (cut) 3:07 PM cm. 1 piece(s) measuring 0.3 x 0.04 cm is taken from the CDT formalin specimen to be held for potential electron microscopy. The remaining tissue is submitted in total in block(s) A2. (TS) Electron Microscopy: Refer to Light Microscopy for details on reallocation of tissue. (Held) (TS) Immunofluorescence: Received in Manohar: 1 pieces(s) of tissue measuring 1.5 x 0.04 cm. (Held Time Zero) (TS) Material A. : 04/10/2022 DRBX Received 3:07 PM CDT Interpretation FINAL DIAGNOSIS 04/10/2022 DRBX Kidney transplant, time-zero, needle biopsy: ??Acute tubular 3:07 PM injury, mild. CDT COMMENT The biopsy is adequate for interpretation. MICROSCOPIC DESCRIPTION LIGHT MICROSCOPY: ??Tissue sections are stained with H&E, PAS, Flora trichrome and Schultz methenamine silver to aid in the morphological interpretation. ??The tissue submitted for light microscopy consists of renal cortex. ??There are up to 20 glomeruli, of which 2 are sclerosed. ??The non-sclerosed glomeruli are of normal size with normal mesangial matrix. There is no endocapillary hypercellularity. ??Capillary gibson are delicate without spikes or craters. ??Special stains do not show basement membrane remodeling and marginating mononuclear cells are not identified. ?TUBULES AND INTERSTITIUM: ??There is mild tubulointerstitial scarring affecting 10% of the sampled cortex. ??No significant interstitial inflammation is seen. There is tubular epithelial cell injury with luminal ectasia and fraying of brush border. ?VESSELS: ??The visualized arteries are withou t diagnostic pathology. ? IMMUNOFLUORESCENT HISTOLOGY: ??Immunofluorescence and C4d were not ordered on this biopsy. ? ELECTRON MICROSCOPY: ??Electron microscopy was not ordered on this biopsy. CLINICAL INFORMATION The patient is a 61-year-old woman who had end-stage renal disease of unknown etiology. ??She received a donor kidney transplant on April 06, 2022. 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 Yes ; ??time-zero Adequacy ??(On LM): ? Total number of glomeruli: 20 ? Number of globally sclerotic glomeruli: 2 ? Number of arteries (with elastica): 4 ? 100% cortex ?0% medulla [place]: ??g0, i0, t0, v0, ah0; cg0, ci0, ct0, ti0, cv0, mm0, ptc0 Additional stains/studies performed ? BK LIZA/IHC: No ? Other stains: No (besides H&E, PAS, Schultz, & Trichrome) ? Full immunofluorescence panel: No ? C4d (IF/IHC): No ? Electron microscopy: No Diagnostic Features ? Features of Cellular Rejection: No; i-IFTA: No; Transplant arteriopathy: No ? Features of Antibody Mediated Rejection: No ? Evidence of BK nephropathy: No ? Glomerular Disease (non-alloimmune): No ? Recurrent [place] disease: No Specimen (Source) Anatomical Collection Method Collection Time Re ceived Time Location / / Volume Laterality Biopsy (Kidney, 04/06/2022 9:47 PM Allograft) CDT Narrative This result has an attachment that is no t available. Nehemias Felipe M.D. LAB PATH RENAL ORDERABLES Performing Organization Address City/State/ZIP Code Phon e Number [facility] - [address] [place], [place] [address] [facility] [place] [address] [facility] [address] Invasive Catheter (04/06/2022 8:10 PM CDT) Narrative Ivelisse Marsh M.D. - 04/06/2022 8:10 P M CDT Ivelisse Marsh M.D. ? 04/06/2022 ??8:19 PM Invasive Catheter Date/Time: 04/06/2022 8:10 PM Performed by: Ivelisse Marsh M.D. Authorized by: Haim Arredondo M.D. Care team members present 1. Ivelisse Marsh M.D. 2. Haim Arredondo M.D. Location: OR PROCEDURE DETAILS: Line type: arterial ?? Laterality: left Location: radial Location details: new site ? Age group: adult Catheter diameter: 20 Ga Technique: palpation ?? Monitored: yes ?? Number of attempts: 1 UNIVERSAL PROTOCOL All relevant documentation and testing w ere reviewed and available. All required blood products, implants, devic es and or special equipment were made available as applicable. Pre-proced ure verification was conducted and the correct site was marked if required. A fire risk assessment was done as applicable. The procedural time-out t o verify correct patient, correct side/site, and procedure was conducted p rior to performing the procedure and confirmed in a procedural pause. PRE-PROCEDURE DETAILS: Appropriate hand hygiene, gown, cap, mas k, protective eyewear, sterile gloves, skin preparation, sterile drape, and strict aseptic technique were utilized as applicable for the procedure .: yes ?? Skin preparation: chlorhexidine ?? SEDATION / ANESTHESIA Anesthesia method: none POST-PROCEDURE DETAILS: Procedure completed successfully: yes ?? Line secured: secured with sutureless de vice Chlorhexidine disc around insertion site and under catheter with slight turn: yes ?? Complications - arterial: none ATTESTATION STATEMENT The consultant intern saw and evaluated the pat ient and discussed the findings and plan with the resident or fellow. Th e consultant intern agrees with the findings and plan. The consultant intern was pr esent for the entire procedure(s). Haim Arredondo M.D. PROCEDURE/MINOR SURGICAL ORD ERABLES Airway (04/06/2022 7:55 PM CDT) Narrative Ivelisse Marsh M.D. - 04/06/2022 7:55 P M CDT Ivelisse Marsh M.D. ? 04/06/2022 ??8:23 PM Airway Date/Time: 04/06/2022 7:55 PM Performed by: Ivelisse Marsh M.D. Authorized by: Haim Arredondo M.D. Patient location during procedure: OR / Procedure Area PROCEDURE DETAILS: Mask difficulty assessment: difficult ma sk (i.e.two-handed) with oral airway Final airway type: direct laryngoscopy, intubation Laryngeal Manipulation: no ?? Final best view of glottic structures - Cormack/Lehane Score: grade 2A ETT location: oral Adult blade type: Ashford 2 Adult tube size: 7 Adult ETT distance at teeth/gum: 22 Oral tube type: standard ETT Cuffed: yes Number of attempt to successful placemen t: 1 Airway confirmation: bilateral breath so unds, positive ETCO2 and bilateral chest rise Other previous techniques attempted: non e PRE PROCEDURE DETAILS: Pre evaluation for airway management: pr ocedure Urgency: elective Preoxygenation: bag valve mask SEDATION / ANESTHESIA Anesthesia method: anesthesia POST PROCEDURE DETAILS: ? Procedure outcome: successful ?? Airway event: no complications ATTESTATION STATEMENT A resident or fellow participated in the procedure, and the consultant intern was present for the entire procedure. Haim Arredondo M.D. ANESTHESIA ORDERABLES HLA Class II Typing by Low Resolution, Donor Testing (04/06/2022 5:10 PM CDT) [facility] Method Time Signature Class II LR [id number] 04/14/2022 DBB8 Donor 4:21 PM CDT DRB1 - 1 DR4 Not 04/14/2022 DBB8 Equivalent Applicable 4:21 PM CDT DRB1 - 2 DR4 Not 04/14/2022 DBB8 Equivalent Applicable 4:21 PM CDT DRB1 - 1 DRB1*04:01 Not 04/14/2022 DBB8 Molecular Applicable 4:21 PM CDT DRB1 - 2 DRB1*04:04 Not 04/14/2022 DBB8 Molecular Applicable 4:21 PM CDT [id number] - 1 DR53 Not 04/14/2022 DBB8 Equivalent Applicable 4:21 PM CDT CGO798 - 2 DR53 Not 04/14/2022 D[facility] Equivalent Applicable 4:21 PM CDT MHK053 - 1 DRB4*01:03 Not 04/14/2022 D[facility] Molecular Applicable 4:21 PM CDT QBK608 - 2 DRB4*01:03 Not 04/14/2022 D[facility] Molecular Applicable 4:21 PM CDT DQB1 - 1 DQ7 Not 04/14/2022 DBB8 Equivalent Applicable 4:21 PM CDT DQB1 - 2 DQ8 Not 04/14/2022 D[facility]8 Equivalent Applicable 4:21 PM CDT DQB1 - 1 DQB1*03:01 Not 04/14/2022 DBB8 Molecular Applicable 4:21 PM CDT DQB1 - 2 DQB1*03:02 Not 04/14/2022 D[facility] Molecular Applicable 4:21 PM CDT DQA1 - 1 DQA1*03:01 Not 04/14/2022 DBB8 Molecular Applicable 4:21 PM CDT DQA1 - 2 DQA1*03:03 Not 04/14/2022 D[facility] Molecular Applicable 4:21 PM CDT DPB1 - 1 DPB1*04:01 Not 04/14/2022 D[facility] Molecular Applicable 4:21 PM CDT DPB1 - 2 DPB1*04:01 Not 04/14/2022 [facility] Molecular Applicable 4:21 PM CDT DPA1 - 1 DPA1*01:03 Not 04/14/2022 D[facility] Molecular Applicable 4:21 PM CDT DPA1 - 2 DPA1*01:03 Not 04/14/2022 D[facility] Molecular Applicable 4:21 PM CDT Test Method PCR - Next 04/14/2022 DBB8 Generation 4:21 PM CDT Sequencing Comment: Molecular HLA typing reported as serolog ical equivalents and intermediate to high resolution molecula r values. ??For convenience, when not defined in the WHO Nomenclature a laboratory defined serologic equivalent has been provided. This test was developed and its performa nce characteristics determined by [facility] in a manner co nsistent with CLIA requirements. This test has not been casper ared or approved by the U.S. Food and Drug Administration. CLIA: [id number] ??CLIA Motor Overhauler: SHANTA LOYD MD,PhD Specimen Anatomical Collection Method Collection Time Receive d Time (Source) Location / / Volume Laterality Blood 04/06/2022 5:10 PM 5:10 CDT PM CDT Radha Black M.D. LAB HLA ORDERABLES Performing Organization Address City/State/ZIP Code Phon e Number [facility] - [address] [place] [address] [facility] [place] [address] [facility] [address] [facility] HLA Class I Typing by Low Resolution, Donor Testing (04/06/2022 5:10 PM CDT) [facility] gist Method Time Signature Class I LR [id number] 04/14/2022 DBB8 Donor 4:20 PM CDT A - 1 A2 Not 04/14/2022 DBB8 Equivalent Applicable 4:20 PM CDT A - 2 A68 Not 04/14/2022 D[facility]8 Equivalent Applicable 4:20 PM CDT A - 1 A*02:01 Not 04/14/2022 [facility] Molecular Applicable 4:20 PM CDT A - 2 A*68:01 Not 04/14/2022 [facility] Molecular Applicable 4:20 PM CDT B - 1 B60 Not 04/14/2022 [facility] Equivalent Applicable 4:20 PM CDT B - 2 B60 Not 04/14/2022 D[facility] Equivalent Applicable 4:20 PM CDT B - 1 B*40:01 Not 04/14/2022 D[facility] Molecular Applicable 4:20 PM CDT B - 2 B*40:01 Not 04/14/2022 D[facility] Molecular Applicable 4:20 PM CDT Bw - 1 Bw6 Not 04/14/2022 D[facility] Equivalent Applicable 4:20 PM CDT Bw - 2 Bw6 Not 04/14/2022 D[facility] Equivalent Applicable 4:20 PM CDT C - 1 Cw9 Not 04/14/2022 D[facility]8 Equivalent Applicable 4:20 PM CDT C - 2 Cw10 Not 04/14/2022 D[facility]8 Equivalent Applicable 4:20 PM CDT C - 1 C*03:03 Not 04/14/2022 DBB8 Molecular Applicable 4:20 PM CDT C - 2 C*03:04 Not 04/14/2022 DBB8 Molecular Applicable 4:20 PM CDT Test Method PCR - Next 04/14/2022 DBB8 Generation 4:20 PM CDT Sequencing Comment: Molecular HLA typing reported as serolog ical equivalents and intermediate to high resolution molecula r values. ??For convenience, when not defined in the WHO Nomenclature a laboratory defined serologic equivalent has been provided. This test was developed and its performa nce characteristics determined by [facility] in a manner co nsistent with CLIA requirements. This test has not been casper ared or approved by the U.S. Food and Drug Administration. CLIA: [id number] ??CLIA Motor Overhauler: SHANTA LOYD MD,PhD Specimen Anatomical Collection Method Collection Time Receive d Time (Source) Location / / Volume Laterality Blood 04/06/2022 5:10 PM 5:10 CDT PM CDT Radha Black M.D. LAB HLA ORDERABLES Performing Organization Address City/State/ZIP Code Phon e Number [facility] - [address] [place], [place] [address] [facility] [place] [place] [address] [facility] [address] HLA CROSSMATCH SUMMARY REPORT (04/06/2022 5:10 PM CDT) Specimen (Source) Anatomical Collection Method Collection Time Re ceived Time Location / / Volume Laterality 04/06/2022 5:10 PM CDT Narrative 04/17/2022 2:16 PM CDT This result has an attachment that is no t available. Ordered by an unspecified provider. Default Authenticator [facility] LAB HLA ORDERABLES HLA Flow Cytometric Crossmatch, Varies (04/06/2022 5:10 PM CDT) [facility] Method Time Signature FXM Crossmatch [id number] 04/06/2022 DBB8 Donor 8:27 PM CDT FXM Donor Spleen 04/10/2022 DBB8 Sample Source 2:09 PM CDT FXM Donor Cell 04/05/2022 04/10/2022 DBB8 Date 2:09 PM CDT FXM Recipient 04/06/2022 04/10/2022 DBB8 Current Serum 2:09 PM CDT Date FXM Current Negative Not Applicable 04/10/2022 [facility]8 T-Cell Result 2:09 PM CDT FXM Current -2 See Result 04/10/2022 D[facility]8 T-Cell MCS Comment 2:09 PM CDT Comment: Spleen: Negative < 55 FXM Current B-Cell Result Negative Not Applicable 2:09 PM CDT DBB8 FXM Current B-Cell MCS -22 See Result Comment 04/10/20 2:09 PM CDT DBB8 Comment: Spleen: Negative < 102 FXM Recipient 03/15/2022 04/10/2022 2:09 PM CDT DB B8 Historical Serum Date FXM Historical T-Cell Negative Not Applicable 04/10/2022 2: 09 PM CDT DBB8 Result FXM Historical T-Cell -4 See Result Comment 2:09 PM CDT DBB8 MCS Comment: Spleen: Negative < 55 FXM Historical B-Cell Negative Not Applicable 04/10/2022 2: 09 PM CDT DBB8 Result FXM Historical B-Cell MCS -26 See Result Comment 04/10 2:09 PM CDT DBB8 Comment: Spleen: Negative < 102 FXM Test Method Flow Cytometry 04/06/2022 8:27 PM CDT DBB8 Comment: ----ADDITIONAL INFORMATION---- This test was developed and its performa nce characteristics determined by [facility] in a manner co nsistent with CLIA requirements. This test has not been casper ared or approved by the U.S. Food and Drug Administration. CLIA: [id number] ??CLIA Motor Overhauler: SHANTA LOYD MD,PhD Specimen Anatomical Collection Method Collection Time Receive d Time (Source) Location / / Volume Laterality Blood 04/06/2022 5:10 PM 5:10 CDT PM CDT Narrative [facility] [place] - 04/10/2022 2:09 PM CDT Specimen Information: Specimen ID: [id number] Specimen Type: Blood Specimen Collection Start Date: 04/06/20 ??5:10 PM Specimen Received Date: 04/06/2022 ??5:1 0 PM Specimen ID: [id number] Specimen Type: Blood Specimen Collection Start Date: 04/06/20 ??5:10 PM Specimen Received Date: 04/06/2022 ??5:1 0 PM Specimen ID: [id number] Specimen Type: Blood Specimen Collection Start Date: 04/06/20 ??5:10 PM Specimen Received Date: 04/06/2022 ??5:1 0 PM Radha Black M.D. LAB HLA ORDERABLES Performing Organization Address City/State/ZIP Code Phon e Number [facility] - [address] [place] [address] [facility] [place] [address] [facility] Ed-[facility] [address] DX Chest Portable 1 View (04/06/2022 4:35 PM CDT) Anatomical Region Laterality Modality Chest, Thoracic RST LOS, Thoracic ARZ LOS, Thoracic N/A Digital Radiography FLA LOS Specimen (Source) Anatomical Collection Method Collection Time Re ceived Time Location / / Volume Laterality 04/06/2022 5:06 PM CDT Impressions 04/06/2022 5:43 PM CDT Comparison with chest radiograph from 04/07/2021. Mildly enlarged cardiac silhouette has mildly increased in size, however may be accentuated by portable technique. Otherwise no significant change. Right axillary surgical clips an d vascular stent. Atherosclerotic aortic calcifications. Chest otherwise negative. Narrative 04/06/2022 5:43 PM CDT EXAM: ??DX CHEST PORTABLE 1 VIEW Procedure Note Michelle Cronin M.D. - 04/06/2022Format ting of this note might be different from the original. EXAM: DX CHEST PORTABLE 1 VIEW IMPRESSION: Comparison with chest radiograph from . Mildly enlarged cardiac silhouette has mildly increased in size, however may be accentuated by portable technique. Otherwise no significant change. Right axillary surgical clips an d vascular stent. Atherosclerotic aortic calcifications. Chest otherwise negative. An Nicholas APRN, C.N.P., Michelle.N.P., M.S.N. IMG DIAGN OSTIC IMAGING PROCEDURES HIV-1/-2 Ag and Ab Screen, Plasma (04/06/2022 4:30 PM CDT) athologist Signature HIV-1/-2 Ag Negative Negative 04/06/2022 [facility] and Ab Screen, 9:15 PM CDT P Comment: Negative result does not rule out HIV in fection. If exposure to HIV infection occurred <14 d ays ago, contact the laboratory to request additi on of HIV-1 RNA detection / quantification test (HIV QN). Specimen Anatomical Collection Method Collection Time Receive d Time (Source) Location / / Volume Laterality Blood (Blood, 04/06/2022 4:30 PM 04/06/20 8:08 Venous) CDT PM CDT Radha Black M.D. LAB MICROBIOLOGY - BLOOD ORD ERABLES Performing Organization Address City/State/ZIP Code Phon e Number [facility] [address] [place], [place] [address] [facility] [place] [address] Laboratory Medicine and Pathology [address] [place] Zelaya/Ankit [employer] Storage, B (04/06/2022 4:30 PM CDT) Analysis Performed At Patho logist Time Signature Storage, Red Collected DEFAULT 04/06/2022 HSS 4:30 PM CDT Storage, ACD Collected DEFAULT 04/06/2022 HSS 4:30 PM CDT Specimen Anatomical Collection Method Collection Time Receive d Time (Source) Location / / Volume Laterality Blood (Blood, 04/06/2022 4:30 PM 04/06/20 22 4:30 Venous) CDT PM CDT Narrative [facility] - [facility] [place] - 04/06/2022 4:30 PM CDT Specimen Information: Specimen ID: [id number] Specimen Type: Blood Specimen Collection Start Date: 04/06/20 ??4:30 PM Specimen Received Date: 04/06/2022 ??4:3 0 PM Specimen ID: [id number] Specimen Collection Start Date: 04/06/20 ??4:30 PM Specimen Received Date: 04/06/2022 ??4:3 0 PM Radha Black M.D. LAB BLOOD ADD-ON Performing Organization Address City/[facility] Phon e Number [facility] - [address] [place], [place] [address] [facility] [place] [address] Laboratories-[address] Type and Screen (with reflex Antibody ID) (04/06/2022 4:30 PM CDT) [facility] Method Time Signature ABORh O Pos Not 04/06/2022 ETRM applicable 5:01 PM CDT Antibody Negative Negative 04/06/2022 ETRM Screen 5:17 PM CDT Type & Screen 04/09/2022 04/06/2022 ETRM Expiration 23:59 5:01 PM CDT Testing [place] DEFAULT 04/06/2022 ETRM Location 4:39 PM CDT Specimen Anatomical Collection Method Collection Time Receive d Time (Source) Location / / Volume Laterality Blood (Arm, 04/06/2022 4:30 PM 4:39 Left) CDT PM CDT Radha Black M.D. LAB BLOOD BANK TEST ORDERABL ES Performing Organization Address [facility] Phon e Number [facility] - [address] [place], [place] [address] [facility] [place] [address] [facility] Ed-[address] HLA Class I/II Combined cPRA, S (04/06/2022 4:29 PM CDT)Only the most recent of2 resultswithin the time period is included. [facility] Method Time Signature Class I/II 50 Not Applicable 04/10/2022 DBB8 Combined cPRA 8:06 AM CDT Comment: ----ADDITIONAL INFORMATION---- Calculated PRA (cPRA) is the percentage of donors expected to have HLA antigens listed as unacceptable for a candidate on the waiting list. Unacceptable antigens include serologic equivalents that have a normalized Mean Fluorescence Intensity (MFI) >= 2000 and antigens that demonstr ate Prozone Phenomenon. The cPRA is calculated based on the HLA frequencies published by [employer] listed here: http://optn.tr ansplant.[facility].gov CLIA: [id number] ??CLIA Motor Overhauler: SHANTA LOYD MD,PhD Combined cPRA Specificities see below 04/10/2022 8 :06 AM CDT DBB8 Comment: A:32 B:38 49 51 78 DQ:2 Specimen Anatomical Collection Method Collection Time Receive d Time (Source) Location / / Volume Laterality Blood 04/06/2022 4:29 PM 7:41 CDT AM CDT Radha Black M.D. LAB HLA ORDERABLES Performing Organization Address City/State/ZIP Code Phon e Number [facility] - [address] [place] [address] [facility] [place] [address] [facility] [address] [facility] HLA Class II SAB Antibody Screen (04/06/2022 4:29 PM CDT)Only the most recent of 2 resultswithin the time period is included. [facility] Method Time Signature Class II SAB Positive Not Applicable 04/10/2022 D[facility]8 Overall Result 8:00 AM CDT SAB DRB1 NONE 04/10/2022 D[facility]8 Specificity 8:00 AM CDT SAB [id number] NONE 04/10/2022 D[facility]8 Specificity 8:00 AM CDT SAB DQB1 see below 04/10/2022 D[facility]8 Specificity 8:00 AM CDT Comment: 2(A*05:01;B*02:01)[4064] Format: Serologic Eq.(DQA1;DQB1 Mol. All jorge)[Normalized MFI] NOTE: Data is displayed in descending or kristi by Mean Fluorescence Intensity (MFI). ??Serologic equivalents can be di splayed multiple times for different molecular alleles. SAB DPB1 Specificity see below 04/10/2022 8:00 AM CDT DBB8 Comment: 6(A*01:03;B*06:01)[894] Format: Serologic Eq.(DPA1;DPB1 Mol. All jorge)[Normalized MFI] NOTE: Data is displayed in descending or kristi by Mean Fluorescence Intensity (MFI). ??Serologic equivalents can be di splayed multiple times for different molecular alleles. ----ADDITIONAL INFORMATION---- Method: Luminex Flow Cytometry CLIA: [id number] ??CLIA Motor Overhauler: SHANTA LOYD MD,PhD Specimen Anatomical Collection Method Collection Time Receive d Time (Source) Location / / Volume Laterality Blood (Blood, 04/06/2022 4:29 PM 04/07/20 7:41 Venous) CDT AM CDT Radha Black M.D. LAB HLA ORDERABLES Performing Organization Address City/State/ZIP Code Phon e Number [facility] - [address] [place], [place] [address] [facility] [place] [address] [facility] [address] HLA Class I SAB Antibody Screen (04/06/2022 4:29 PM CDT)Only the most recent of2 resultswithin the time period is included. [facility] Method Time Signature Class I SAB Positive Not Applicable 04/10/2022 DBB8 Overall Result 7:58 AM CDT SAB A see below 04/10/2022 DBB8 Specificity 7:58 AM CDT Comment: 32(32:01)[2092], 25(25:01)[1188], 31(31: 01)[1163], 24(24:03)[1102], 30(30:01)[989], 23(23:0 1)[911], 24(24:02)[877], 30(30:02)[527] Format: Serologic Eq.(A Mol. Allele)[Nor malized MFI] NOTE: Data is displayed in descending or kristi by Mean Fluorescence Intensity (MFI). ??Serologic equivalents can be di splayed multiple times for different molecular alleles. SAB B Specificity see below 04/10/2022 7:58 AM CDT DBB8 Comment: 51(51:01)[7980], 49(49:01)[3358], 51(51: 02)[2853], 78(78:01)[2459], 38(38:01)[2151], 59(59: 01)[1992], 63(15:16)[1970], 75(15:02)[1784], 52(52: 01)[177], 77(15:13)[1535], 53(53:01)[1357], 57(57: 03)[1326], 57(57:01)[1269], 58(58:01)[986], 67(67:0 1)[703], 75(15:11)[524] Format: Serologic Eq.(B Mol. Allele)[Nor malized MFI] NOTE: Data is displayed in descending or kristi by Mean Fluorescence Intensity (MFI). ??Serologic equivalents can be di splayed multiple times for different molecular alleles. SAB C Specificity NONE 04/10/2022 7:58 AM CDT DBB8 Comment: ----ADDITIONAL INFORMATION---- Method: Luminex Flow Cytometry CLIA: [id number] ??CLIA Motor Overhauler: SHANTA LOYD MD,PhD Specimen Anatomical Collection Method Collection Time Receive d Time (Source) Location / / Volume Laterality Blood (Blood, 04/06/2022 4:29 PM 04/07/20 7:41 Venous) CDT AM CDT Radha Black M.D. LAB HLA ORDERABLES Performing Organization Address [facility] Code Phon e Number [facility] [address] [place], [place] [address] [facility] [place] [place] [place] [address] [facility] [address] Bilirubin, Direct (04/06/2022 4:29 PM CDT) P athologist Signature Bilirubin, <0.2 0.0 - 0.3 04/06/2022 DTL Direct, P mg/dL 5:16 PM CDT Specimen Anatomical Collection Method Collection Time Receive d Time (Source) Location / / Volume Laterality Blood (Blood, 04/06/2022 4:29 PM 04/06/20 5:01 Venous) CDT PM CDT Radha Black M.D. LAB BLOOD ADD-ON Performing Organization Address City/[facility]/ZIP Code Phon e Number [facility] - [address] [place], [place] [address] [place] [address] [place] [address] Bilirubin, Total (04/06/2022 4:29 PM CDT) athologist Signature Bilirubin, 0.3 <=1.2 mg/dL 04/06/2022 METH Total, P 4:55 PM CDT Specimen Anatomical Collection Method Collection Time Receive d Time (Source) Location / / Volume Laterality Blood (Blood, 04/06/2022 4:29 PM 04/06/20 22 4:40 Venous) CDT PM CDT Radha Black M.D. LAB BLOOD ADD-ON Performing Organization Address City/[facility]/ZIP Code Phon e Number [facility] [address] [id number] [place] [address] Osmolality, Urine (04/06/2022 4:19 PM CDT) athologist Signature Osmolality, U 316 150 - 1150 04/06/2022 DT mOsm/kg 5:12 PM CDT Specimen Anatomical Collection Method Collection Time Receive d Time (Source) Location / / Volume Laterality Urine 04/06/2022 4:19 PM 2 4:28 CDT PM CDT Radha Black M.D. LAB URINE ORDERABLES Performing Organization Address City/[facility] [address]/ZIP [facility] [place]on [place] Number [facility] [address] [place], [place] [id number] [place] [address] (ABNORMAL) pH, Random, Urine (04/06/2022 4:19 PM CDT) athologist Signature pH, Random, U 8.1 (H) 4.5 - 8.0 04/06/2022 DTL 5:07 PM CDT Specimen Anatomical Collection Method Collection Time Receive d Time (Source) Location / / Volume Laterality Urine 04/06/2022 4:19 PM 2 4:28 CDT PM CDT Radha Black M.D. LAB URINE ORDERABLES Performing Organization Address [facility] [address]/[facility] Phon e Number [facility] - [address] [place], [place] [address] [facility] [place] [address] SARS Coronavirus 2, PCR Rapid, V Asymptomatic (04/06/2022 4:19 PM CDT) [facility] Method Time Signature SARS CoV-2, Undetected Undetected 04/06/2022 [facility] PCR, Rapid, V 5:32 PM CDT Comment: ----ADDITIONAL INFORMATION---- This RT-PCR test was performed using the Krupa SARS-CoV-2 and Influenza A/B Reagent assay from [employer], which has received Emergency Use Authori zation(EUA) by the U.S. Food and Drug Administration . Fact sheets for this Emergency Use Autho rization (EUA) assay can be found at the following link s: For Healthcare Providers: https://www.fda.gov/media/422160/downloa d For Patients: https://www.fda.gov/media/017126/downloa d SARS Coronavirus 2, Source, Rapid Swab, Nasopharynx 04/06/2022 4:51 PM CDT ST[facility] Specimen Anatomical Collection Method Collection Time Receive d Time (Source) Location / / Volume Laterality Varies 04/06/2022 4:19 PM 4:51 (Nasopharynx) CDT PM CDT An Nicholas APRN, C.N.P., D.N.P., M.S.N. LAB MICRO BIOLOGY - GENERAL ORDERABLES Performing Organization Address [facility] [address]/[facility] Code Phon e Number [facility] - [address] [place], [place] [address] [facility] [place] [address] Laboratories[address] (ABNORMAL) Gram Stain, Urine (04/06/2022 4:19 PM CDT) [facility] Method Time Signature Source Urine, Urine, 04/06/2022 DTL Midstream 4:28 PM CDT Gram Stain, U Positive (A) Negative 04/06/2022 DTL 5:02 PM CDT Comment: Many Gram-positive bacilli Many Gram-positive cocci Bacteria on epithelial cells Specimen Anatomical Collection Method Collection Time Receive d Time (Source) Location / / Volume Laterality Urine (Urine, 04/06/2022 4:19 PM 04/06/20 4:28 Midstream) CDT PM CDT Radha Black M.D. LAB URINE ORDERABLES Performing Organization Address City/[facility] [address]/ZIP Code Phon e Number [facility] - [address] [place], [place] [address] [facility] [place] [address] Laboratories-[facility] [address] HBs Antigen Scrn, S (04/06/2022 3:28 PM CDT) athologist Signature HBs Antigen Negative Negative 04/06/2022 [facility] Scrn, S 9:10 PM CDT Specimen Anatomical Collection Method Collection Time Receive d Time (Source) Location / / Volume Laterality Blood (Blood, 04/06/2022 3:28 PM 04/06/20 22 5:57 Venous) CDT PM CDT Radha Black M.D. LAB MICROBIOLOGY - BLOOD ORD ERABLES Performing Organization Address City/[facility] [address]/ZIP Code Phon e Number [facility] [address] [place] [address] [facility] [place] [address] Laboratory Medicine and Pathology [address] COLLAZO HBc Total Ab Scrn, S (04/06/2022 3:28 PM CDT) athologist Signature HBc Total Ab Negative Negative 04/06/2022 [facility] Scrn, S 9:26 PM CDT Specimen Anatomical Collection Method Collection Time Receive d Time (Source) Location / / Volume Laterality Blood (Blood, 04/06/2022 3:28 PM 04/06/20 22 5:57 Venous) CDT PM CDT Radha Black M.D. LAB MICROBIOLOGY - BLOOD ORD ERAOWEN Performing Organization Address City/State/ZIP Code Phon e Number [facility] [address] [place], [place] [address] [facility] [place] [address] Laboratory Medicine and Pathology [address] COLLAZO HBs Antibody Scrn, S (04/06/2022 3:28 PM CDT) athologist Signature HBs Antibody Negative 04/06/2022 [facility] Scrn, S 9:27 PM CDT Comment: Patient is presumed to be not immune to infection with HBV. ----REFERENCE VALUE---- Unvaccinated: Negative Vaccinated: Positive HBs Antibody, Quantitative, S <5.0 mIU/mL 04/06/2022 9:[address] [facility] Comment: ----REFERENCE VALUE---- Unvaccinated: <5.0 Vaccinated: >=12.0 Specimen Anatomical Collection Method Collection Time Receive d Time (Source) Location / / Volume Laterality Blood (Blood, 04/06/2022 3:28 PM 04/06/20 5:57 Venous) CDT PM CDT Radha Black M.D. LAB MICROBIOLOGY - BLOOD ORD ERABLES Performing Organization Address City/[facility] [address]/ZIP Code Phon e Number [facility] [address] [place] [address] SUPPORT [facility] [place] [address] Laboratory Medicine and Pathology [address] [place] [address] Dr. COLLAZO HCV Ab Scrn w/Reflex to HCV PCR, Serum (04/06/2022 3:28 PM CDT) athologist [facility] HCV Ab Screen, Negative Negative 04/06/2022 [facility] S 9:27 PM CDT Comment: Rzztry-qx-qhjfwe ratio is <1.00 . Specimen (Source) Anatomical Collection Method Collection Time Re ceived Time Location / / Volume Laterality Blood (Blood, 04/06/2022 3:28 04/06/2022 5:57 Peripheral Draw) PM CDT PM CDT Radha Black M.D. LAB MICROBIOLOGY - BLOOD ORD ERABLES Performing Organization Address City/State/ZIP Code Phon e Number [facility] [address] [place] [facility] 05 SUPPORT [facility] [place] [address] Laboratory Medicine and Pathology [address] [place] [address] Dr. COLLAZO from Last 3 Months Insurance Payer Benefit Plan Subscriber ID Effective Phone Address Typ e / Group Dates MEDICARE MEDICARE A [id number] 2004-Prese [address] [place] [address] [facility] MEDICAID [id number] 2017-[place] [phone] [place] [facility] HUMAN SERVICES [address] [address] [place] [address] Advance Directives For more information, please contact: [phone] Latest Code Status on File Code Status Date Activated Date Inactivated Comments Full Code 04/07/2022 3:05 AM 04/09/2022 6:38 PM Full Code: Discussed Full Code 04/06/2022 2:52 PM 04/07/2022 3:05 AM Full Code: Discussed Full Code 02/14/2022 10:04 AM 02/14/2022 6:32 PM Full Code: Discussed Full Code 09/15/2019 1:43 PM 09/19/2019 4:08 PM Full Code: Discussed Full Code 05/31/2019 12:47 PM 06/06/2019 3:08 PM Full Code: Discussed Care Teams Swing Ride 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
--- OUTSIDE RECORDS SUMMARY | 2022-05-25 12:57 | XMS_ITS ---
:1960 Author Organization [facility] Address [address] [place] [address] Care Team Providers Name Role Phone Elsewhere, Pcp Primary Care Provider Unavailable Procedures Procedure Name Priority Date/Time Associated Comments [...] Transplant Renal Results for 11:43 AM CDT (HCC) this procedure are in the results section. COMPREHENSIVE Routine 04/28/2022 Transplant Renal Results fo r METABOLIC PANEL, S/P 11:43 AM CDT ([facility]) this pr ocedure are in the results section. CBC WITH Routine 04/28/2022 Transplant Renal Results for DIFFERENTIAL, B 11:43 AM CDT ([facility]) this procedu re are in the results [...] AM CDT Transplant Renal this proced ure ([facility]) are in the results section. MAGNESIUM, S Routine 04/25/2022 8:12 Aftercare Results for AM CDT Transplant Renal this proced ure ([facility]) are in the results section. RENAL FUNCTION Routine 04/25/2022 8:12 Aftercare Results fo r PANEL, S AM CDT Transplant Renal this proced ure ([facility]) are in the results section. CBC WITH Routine 04/25/2022 8:12 Aftercare Results for DIFFERENTIAL, B AM CDT Transplant Renal this pro cedure ([facility]) are in the results section. PROTEIN, TOTAL, 24 Routine 04/22/2022 Transplant Renal Resul ts for HR, U 11:39 AM CDT ([facility]) this procedure are in the results section. ALBUMIN, 24 HR, U Routine 04/22/2022 Transplant Renal Result s for 11:39 AM CDT ([facility]) this procedure are in the results section. [...] Renal Results for MICROSCOPIC 11:05 AM CDT ([facility]) this procedure are in the results section. BACTERIAL CULTURE, Routine 04/21/2022 Transplant Renal Resul ts for AEROBIC + SUSC, 11:05 AM CDT ([facility]) this procedu re URINE are in the results section. BMD BONE DENSITY RAD - Routine 04/21/2022 9:05 Transplant Renal Res ults for SPINE HIPS (most inpatients AM CDT ([facility]) this proced ure and all are in the outpatients) results section. RENAL FUNCTION Routine 04/21/2022 7:45 Transplant Renal Result s for PANEL, S AM CDT ([facility]) this procedure are in the results section. LIPID PANEL, S Routine 04/21/2022 7:45 Transplant Renal Result s for AM CDT ([facility]) this procedure are in the results section. MYCOPHENOLIC ACID, S Routine 04/21/2022 7:45 Transplant Renal Results for AM CDT ([facility]) this procedure are in the results section. HEPATIC FUNCTION Routine 04/21/2022 7:45 Transplant Renal Resu lts for PANEL, S AM CDT ([facility]) this procedure are in the results section. 25-HYDROXYVITAMIN D2 Routine 04/21/2022 7:45 Transplant Renal Results for AND D3, S AM CDT ([facility]) this procedure are in the results section. TACROLIMUS LEVEL, B Routine 04/21/2022 7:45 Transplant Renal R esults for AM CDT ([facility]) this procedure are in the results section. CBC WITH Routine 04/21/2022 7:45 Transplant Renal Results for DIFFERENTIAL, B AM CDT ([facility]) this procedu re are in the results section. BKV DNA Routine 04/21/2022 7:45 Transplant Renal Results for DETECT/QUANT, P AM CDT ([facility]) this procedu re are in the results section. TROPONIN T, 5TH GEN, Routine 04/21/2022 7:44 Transplant Renal Results for P AM CDT ([facility]) this procedure are in the results section. PARATHYROID HORMONE Routine 04/21/2022 7:44 Transplant Renal R esults for (PTH), S AM CDT ([facility]) this procedure are in the results section. MAGNESIUM, S Routine 04/21/2022 7:44 Transplant Renal Results for AM CDT ([facility]) this procedure are in the results section. TACROLIMUS LEVEL, B Routine 04/19/2022 7:58 Transplant Renal R esults for AM CDT ([facility]) this procedure are in the results section. MAGNESIUM, S Routine 04/19/2022 7:58 Transplant Renal Results for AM CDT ([facility]) this procedure are in the results section. RENAL FUNCTION Routine 04/19/2022 7:58 Transplant Renal Result s for PANEL, S AM CDT ([facility]) this procedure are in the results section. CBC WITH Routine 04/19/2022 7:58 Transplant Renal Results for DIFFERENTIAL, B AM CDT ([facility]) this procedu re are in the results [...] Renal Results for MICROSCOPIC 12:11 PM CDT ([facility]) this procedure are in the results section. BACTERIAL CULTURE, Routine 04/17/2022 Transplant Renal Resul ts for AEROBIC + SUSC, 12:11 PM CDT ([facility]) this procedu re URINE are in the results section. TACROLIMUS LEVEL, B Routine 04/17/2022 7:43 Transplant Renal R esults for AM CDT ([facility]) this procedure are in the results section. MAGNESIUM, S Routine 04/17/2022 7:43 Transplant Renal Results for AM CDT ([facility]) this procedure are in the results section. RENAL FUNCTION Routine 04/17/2022 7:43 Transplant Renal Result s for PANEL, S AM CDT ([facility]) this procedure are in the results section. CBC WITH Routine 04/17/2022 7:43 Transplant Renal Results for DIFFERENTIAL, B AM CDT ([facility]) this procedu re are in the results [...] Renal Results for MICROSCOPIC 12:31 PM CDT ([facility]) this procedure are in the results section. BACTERIAL CULTURE, Routine 04/13/2022 Transplant Renal Resul ts for AEROBIC + SUSC, 12:31 PM CDT ([facility]) this procedu re URINE are in the results section. TACROLIMUS LEVEL, B Routine 04/13/2022 8:17 Transplant Renal R esults for AM CDT ([facility]) this procedure are in the results section. MAGNESIUM, S Routine 04/13/2022 8:17 Transplant Renal Results for AM CDT ([facility]) this procedure are in the results section. RENAL FUNCTION Routine 04/13/2022 8:17 Transplant Renal Result s for PANEL, S AM CDT ([facility]) this procedure are in the results section. CBC WITH Routine 04/13/2022 8:17 Transplant Renal Results for DIFFERENTIAL, B AM CDT ([facility]) this procedu re are in the results section. COMPREHENSIVE Routine 04/11/2022 7:29 Transplant Renal Results for METABOLIC PANEL, S/P AM CDT ([facility]) this procedure Thombosis are in the Arteriovenous results Fistula Initial section. ([facility]) ACTIVATED PARTIAL Routine 04/11/2022 7:29 Transplant Renal Res ults for THROMBOPLASTIN TIME AM CDT ([facility]) this procedure (APTT), P Thombosis are in the Arteriovenous results Fistula Initial section. ([facility]) PROTHROMBIN TIME Routine 04/11/2022 7:29 Transplant Renal Resu lts for (PT), P AM CDT ([facility]) this procedure Thombosis are in the Arteriovenous results Fistula Initial section. ([facility]) TACROLIMUS LEVEL, B Routine 04/11/2022 7:29 Transplant Renal R esults for AM CDT ([facility]) this procedure are in the results section. MAGNESIUM, S Routine 04/11/2022 7:29 Transplant Renal Results for AM CDT ([facility]) this procedure are in the results section. CBC WITHOUT Routine 04/11/2022 7:29 Transplant Renal Results for DIFFERENTIAL, B AM CDT ([facility]) this procedu re are in the results [...] all are in the outpatients) results section. WANG/KID POST TRANS STAT 04/06/2022 4:30 Result s [...] Evaluation Exam section. from Last 3 Months Allergies Active Allergy Reactions Severity Noted Date [...] 0 05/02/20 Active phosphate-sodium (250 mg total) 22 022 phosphate (K-PHOS by mouth 2 NEUTRAL) 250 mg (two) times a tabletIndications: day. E87.6 Immunodeficiency hypokalemia; ([facility]), z94.0 kidney Hypophosphatemia, transplant Complication Kidney Transplant ([facility]) mycophenolate Take 3 capsules 180 capsule 1 05/02/20 Active (CELLCEPT) 250 mg (750 mg total) 22 capsuleIndications: by mouth every Immunodeficiency 12 (twelve) (HCC), Complication hours. Take Kidney Transplant medication on ([facility]) an empty stomach. Do not break, cut, or open capsules. predniSONE Take 1 tablet 30 tablet 11 05/02/20 Activ e (DELTASONE) 5 mg (5 mg total) by 22 tabletIndications: mouth daily. Immunodeficiency 04/11-04/28: 4 (HCC), Complication tabs, Kidney Transplant 04/29-05/05: 3 ([facility]) tabs, 05/06-05/12: 2 tabs, 05/13 and after: 1 tab daily sulfamethoxazole-tri Take 1 tablet 30 tablet 5 05/02/20 Active methoprim by mouth daily. 22 (BACTRIM,SEPTRA) Stop date: 400-80 mg per 10/08/22. Dose tabletIndications: adjusted based Immunodeficiency on renal ([facility]), Complication function. Kidney Transplant ([facility]) tacrolimus (PROGRAF) Take 3 capsules 180 capsule 11 05/02/20 0 Active 1 mg (3 mg total) by 023 capsuleIndications: mouth every 12 Immunodeficiency (twelve) hours. ([facility]), Complication Dose may change Kidney Transplant based on ([facility]) levels. valGANciclovir Take 1 tablet 30 tablet 2 05/02/20 A ctive (VALCYTE) 450 mg (450 mg total) 22 tabletIndications: by mouth daily. Immunodeficiency Dose may be (HCC), Complication adjusted based Kidney Transplant on kidney ([facility]) function. Stop date: 07/08/22 magnesium oxide Take 1 tablet 60 tablet 0 05/02/20 Active (MAG-OX) 400 mg (400 mg total) 022 (241.3 mg magnesium) by mouth 2 tabletIndications: (two) times a Hypomagnesemia day before breakfast and dinner. nebivoloL (BYSTOLIC) Take 2 tablets 60 tablet 11 05/05/2004/20/ Active 5 mg (10 mg total) 22 [...] Discontinued 5 mg (5 mg total) by 022 (Dos e tabletIndications: mouth daily. 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 Obstruction Ureter 04/03/2018 Overview: Added automatically from request for darrion naik [id number] Depression Major One Episode Full Remission 09/13/2017 Chronic Kidney Disease NOS 08/11/2017 Chronic Kidney Disease Stage 5 Glomerular Filtration R ate Less Than 15 04/18/2017 Chronic Kidney Disease Stage 4 Glomerular Filtration R ate 15-29 09/27/2016 Hyperlipidemia 03/27/2012 Transplant Renal 03/27/2012 Hypertension And Chronic Kidney Disease Stage 1 To 4 0 03/27/2012 Immunizations Name Administration Dates Next Due HepA [...] 05/31/2019, 06/05/2014 (FLUZONE/FLUARIX) (6 months and older)(PF) Social History Tobacco Use Types Packs/Day Years [...] How often do you attend worship or mu-ism 1 to 4 times per year 12/23/2021 [...] place to sleep or slept in a assisted (including now)? Education Answer Date Recorded What [...] Mass Index 37.09 04/28/2022 12:00 PM CDT Results Tacrolimus, B (05/22/2022 10:03 AM CDT)Only the most recent of11 resultswithin the time period is included. athologist Signature EXT Tacrolimus 10.6 ng/mL [facility] Specimen (Source) Anatomical Collection Method Collection Time Re ceived Time Location / / Volume Laterality 05/22/2022 10:03 AM CDT Narrative [facility] - 05/25/2022 8:34 AM CDT This result has an attachment that is no t available. External results verified in Extract by Radha Mauricio on 05/25/2022 at 08:32 AM. Ordering Provider External M.D. LAB BLOOD NON ADD-ON Performing Organization Address City/State/ZIP Code Phon e Number [facility] [address] [place] [address] (ABNORMAL) CBC with Differential, Blood (05/22/2022 10:03 AM CDT)Only the most recent of11 resultswithin the time period is included. Patholo gist Method Time Signature EXT Leukocytes 6.01 4.50 - [place] 11.00 [facility] K/uL LABORATORY EXT RBC 3.37 (L) 4.00 - [place] 5.20 m/uL HOSPITAL LABORATORY EXT Hemoglobin 10.2 (L) 12.0 - [place] 16.0 [facility] gm/dL LABORATORY EXT Hematocrit 33.4 33.0 - [place] 51.0 % HOSPITAL LABORATORY EXT MCV 99 80 - 100 [facility] HOSPITAL LABORATORY EXT Platelet 135 (L) 140 - 440 [place] Count K/uL HOSPITAL LABORATORY EXT RDW 15.8 (H) 11.5 - [place] 15.5 % HOSPITAL LABORATORY EXT Neutrophils 3.88 1.7 - 7.0 [facility] LABORATORY EXT Lymphocytes 1.45 0.90 - [place] 2.90 [facility] LABORATORY EXT Monocytes 0.50 0.00 - [place] 0.90 [facility] LABORATORY EXT Eosinophils 0.10 0.00 - [place] 0.50 [facility] LABORATORY EXT Basophils 0.05 0.00 - [place] 0.30 [facility] LABORATORY Specimen (Source) Anatomical Collection Method Collection Time Re ceived Time Location / / Volume Laterality 05/22/2022 10:03 AM CDT [facility] LABORATORY - 10:26 AM CDT This result has an attachment that is no t available. External results verified in Extract by Radha Chaidez on 05/23/2022 at 10:23 AM. Ordering Provider External [facility] LAB BLOOD ADD-ON Performing Organization Address City/[facility]/ZIP Code [facility] e Number [facility] LABORATORY [address] [place] [address] Potassium (05/22/2022 10:03 AM CDT)Only the most recent of4 resultswithin the time period is included. P athologist Signature EXT Potassium 4.0 3.6 - 5.1 [place] mmol/L [facility] LABORATORY Specimen (Source) Anatomical Collection Method Collection Time Re ceived Time Location / / Volume Laterality 05/22/2022 10:03 AM CDT [facility] LABORATORY - 8:24 AM CDT This result has an attachment that is no t available. External results verified in Extract by Mina De La Torre on 05/23/2022 at 08:21 AM. Ordering Provider External Mukund LAB BLOOD ADD-ON Performing Organization Address City/State/ZIP Code [facility] e Number [facility] LABORATORY [address] [place] [address] Phosphorus Inorganic (05/22/2022 10:03 AM CDT)Only the most recent of7 results within the time period is included. P athologist Signature EXT Phosphorus 3.5 2.5 - 4.5 [place] (Inorganic), S mg/dL [facility] LABORATORY Specimen (Source) Anatomical Collection Method Collection Time Re ceived Time Location / / Volume Laterality 05/22/2022 10:03 AM CDT Narrative [facility] - 05/23/2022 8:24 AM CDT Source result document attached to Order Number [id number] ([id number]) dated 05/22/2022. External results verified in Extract by Mina De La Torre on 05/23/2022 at 08:21 AM. Ordering Provider External Mukund LAB BLOOD ADD-ON Performing Organization Address City/[facility] [place] [address], [facility] [phone] LABORATORY [facility] Magnesium (05/22/2022 10:03 AM CDT)Only the most recent of12 resultswithin the time period is included. P athologist Signature EXT Magnesium 2.0 1.5 - 2.6 [place] mg/dL [facility] LABORATORY Specimen (Source) Anatomical Collection Method Collection Time Re ceived Time Location / / Volume Laterality 05/22/2022 10:03 AM CDT Narrative [facility] - 05/23/2022 8:24 AM CDT Source result document attached to Order Number [id number] ([id number]) dated 05/22/2022. External results verified in Extract by Mina De La Torre on 05/23/2022 at 08:21 AM. Ordering Provider External Mukund LAB BLOOD ADD-ON Performing Organization Address City/[facility] [place] [address], [facility] [phone] LABORATORY [facility] (ABNORMAL) Glucose, Random (05/22/2022 10:03 AM CDT)Only the most recent of3 resultswithin the time period is included. P athologist Signature EXT Glucose 124 (H) 60 - 115 [place] mg/dL [facility] LABORATORY Specimen (Source) Anatomical Collection Method Collection Time Re ceived Time Location / / Volume Laterality 05/22/2022 10:03 AM CDT Narrative [facility] - 05/23/2022 8:24 AM CDT Source result document attached to Order Number [id number] ([id number]) dated 05/22/2022. External results verified in Extract by Mina De La Torre on 05/23/2022 at 08:21 AM. Ordering Provider External Mukund LAB BLOOD TROPONIN Performing Organization Address City/[facility] Phon e Number [address] [phone] LABORATORY [facility] (ABNORMAL) Creatinine with Estimated GFR (05/22/2022 10:03 AM CDT)Only the most recent of3 resultswithin the time period is included. Analysis Performed At [facility] logist Time Signature EXT Creatinine 2.1 (H) 0.5 - 1.5 [place] mg/dL [facility] LABORATORY Specimen (Source) Anatomical Collection Method Collection Time Re ceived Time Location / / Volume Laterality 05/22/2022 10:03 AM CDT Narrative [facility] - 05/23/2022 8:24 AM CDT Source result document attached to Order Number [id number] ([id number]) dated 05/22/2022. External results verified in Extract by Mina De La Torre on 05/23/2022 at 08:21 AM. Ordering Provider External Mukund LAB BLOOD ADD-ON Performing Organization Address City/[facility] [place] [address], [facility] [phone] LABORATORY [facility] HIV-1 RNA Detect / Quant (05/08/2022 10:50 AM CDT) Patholo gist Method Time Signature EXT HIV-1 RNA Not Detected copies/mL [facility] Detect/Quant[facility] Specimen (Source) Anatomical Collection Method Collection Time Re ceived Time Location / / Volume Laterality 05/08/2022 10:50 AM CDT Narrative [facility] - 05/15/2022 9:45 AM CDT This result has an attachment that is no t available. External results verified in Extract by Radha Mauricio on 05/15/2022 at 09:43 AM. Ordering Provider External [facility] LAB MICROBIOLOGY - BLO OD ORDERABLES Performing Organization Address [facility]/ZIP Code Phon e Number [facility] [address] [place] [address] HCV RNA Detect / Quant, Serum (05/08/2022 10:50 AM CDT)Only the most recent of2 resultswithin the time period is included. [facility] gist Method Time Signature EXT HCV RNA Not Detected IU/mL [place] Detect/[facility]if [employer] Specimen (Source) Anatomical Collection Method Collection Time Re ceived Time Location / / Volume Laterality 05/08/2022 10:50 AM CDT Narrative [facility] - 05/15/2022 9:49 AM CDT Source result document attached to Order Number [id number] ([id number]) dated 05/08/2022. External results verified in Extract by Radha Mauricio on 05/15/2022 at 09:47 AM. Ordering Provider External [facility] LAB MICROBIOLOGY - BLO OD ORDERABLES Performing Organization Address [facility] Phon e Number [facility] [address] [place] [address] (ABNORMAL) Iothalamate, Glomerular Filtration Rate (04/28/2022 12:13 PM CDT) P athologist Signature Uncorrctd 25 mL/min 04/28/2022 JR Iothal Cl 5:39 PM CDT Corrctd Iothal 22 (L) 66 - 120 04/28/2022 JR Cl mL/min/BSA 5:39 PM CDT Comment: ----ADDITIONAL INFORMATION---- This test was developed and its performa nce characteristics determined by [facility] in a manner consistent with CLIA requirements. This test has not been cleared or approved by the [place] d and Drug Administration. Specimen Anatomical Collection Method Collection Time Receive d Time (Source) Location / / Volume Laterality Varies (Blood, 04/28/2022 12:13 2 2:19 Venous) PM CDT PM CDT Narrative [facility] - 04/28/2022 5:39 PM CDT Specimen Information: Specimen ID: [id number] Specimen Type: Varies Specimen Collection Start Date: 2 12:13 PM Specimen Received Date: 04/28/2022 ??2:19 PM Specimen ID: [id number] Specimen Type: Varies Specimen Collection Start Date: 2 ??1:16 PM Specimen Received Date: 04/28/2022 ??2:19 PM Specimen ID: [id number] Specimen Type: Varies Specimen Collection Start Date: 2 ??2:01 PM Specimen Received Date: 04/28/2022 ??2:19 PM Specimen ID: [id number] Specimen Type: Varies Specimen Collection Start Date: 2 ??1:22 PM Specimen Received Date: 04/28/2022 ??2:19 PM Specimen ID: [id number] Specimen Type: Varies Specimen Collection Start Date: 2 ??2:06 PM Specimen Received Date: 04/28/2022 ??2:19 PM Patricia Cox M.D. LAB BLOOD NON ADD-ON Performing Organization Address City/State/ZIP Code Phon e Number [facility] - [address] [place] [address] [address] [place] [address] [facility] [address] [facility] (ABNORMAL) Comprehensive Metabolic Panel (04/28/2022 11:43 AM [...] Organization Address City/State/ZIP Code Phon e Number [facility] - [address] [place], [place] [address] [employer] [facility] [place] [address] [facility] [address] (ABNORMAL) Bacterial Culture, Aerobic + Susc, Urine (04/27/2022 9:31 AM CDT)Only the most recent of5 resultswithin the time period is included. Component Value Ref Test Analysis Performed At [facility] Range Method Time Signature Urine With urogenital [...] BIOLOGY - GENERAL ORDERABLES Performing Organization Address City/State/ZIP Code Phon e Number [facility] - [address] [place] [phone] [employer] [facility] [employer] [facility] [place] [address] [address] MS CYSTHRSCPY RMVL FB/STENT CMPLX (04/27/2022 9:07 AM CDT) Specimen (Source) Anatomical Location Collection Method / Collectio n Time Received Time / Laterality Volume Narrative Katherine Eduardo APRN, C.N.P., D.N.P. - 04/27/2022 9:07 AM CDT Katherine Eduardo APRN, C.N.PDavi, D.N.P. ? 04/27/2022 ??9:09 AM Cysto w/stent removal Date/Time: 04/27/2022 9:07 AM Performed by: Katherine Eduardo APRN, C .N.P., D.N.P. Authorized by: An Nicholas APRN, C .N.P., D.N.P., M.S.N. Care team members present 1. Katherine Eduardo APRN, C.N.P., D.N. P. 2. Bharti Agneles ?? foreign body Additional procedures performed: cystosc [...] apparent complications ?? An Nicholas APRN, C.N.P., Michelle.N.P., M.S.N. UROLOGY O RDERABLES (ABNORMAL) Renal Function [...] Organization Address City/State/ZIP Code Phon e Number [facility] - [address] [place], [place] [address] [employer] [facility] [facility] [place] [address] [facility] [address] (ABNORMAL) Protein, Total, 24 HR, Urine (04/22/2022 11:39 AM CDT) P athologist Signature Total Protein, 715 (H) <229 mg/24 04/23/2022 DTL 24 HR, U h 9:17 AM CDT Collection 24 h 04/23/2022 DTL Duration 7:47 AM CDT Urine Volume 2858 mL 04/23/2022 DTL 7:47 AM CDT Specimen Anatomical Collection Method Collection Time Receive d Time (Source) Location / / Volume Laterality Urine (Urine, 24 04/22/2022 11:39 2 022 7:47 Hours) AM CDT AM CDT Patricia Cox M.D. LAB URINE ORDERABLES Performing Organization Address City/[facility] Code Phon e Number [facility] - [address] [place], [place] [address] [employer] [facility] [place] [address] Laboratories-[address] (ABNORMAL) Albumin, 24 Hour Collection, Urine (04/22/2022 11:39 AM CDT) P athologist Signature Albumin, 24 256 (H) <30 mg/24 04/23/2022 DTL Hr, U h 10:02 AM CDT Comment: ----ADDITIONAL INFORMATION---- This test has been modified from the man ufacturer's instructions. Its performance characteri stics were determined by [facility] in a manner co nsistent with CLIA [...] M.D. LAB URINE ORDERABLES Performing Organization Address City/[facility]/ZIP Code Phon e Number [facility] - [address] [place], [place] [address] [employer] [facility] [place] [address] Laboratories-[place] [address] [address] [facility] (ABNORMAL) Dipstick, Urine (04/21/2022 11:05 AM CDT)Only the most recent of4 resultswithin the time period is included. [facility] gist Method Time Signature Hemoglobin, Moderate (A) Negative [...] Organization Address City/State/ZIP Code Phon e Number [facility] - [address] [place] [address] [employer] [facility] [place] [address] [address] (ABNORMAL) Microscopic Manual (04/21/2022 11:05 AM CDT)Only the most recent of4 resultswithin the time period is included. [facility] Method Time Signature Microscopy Abnormal 04/21/2022 DTL [...] 11:05 04/21/2022 1:13 AM CDT PM CDT Poemlarp Mekraksakit M.D. LAB URINE ORDERABLES Performing Organization Address City/[facility] Phon e Number [facility] - [address] [place], [place] [address] [place] [address] [place], [place] [id number] [place] [address] pH, Urine (04/21/2022 11:05 AM CDT)Only the most recent of3 resultswithin the time period is included. P athologist Signature pH, U 5.9 4.5 - 8.0 04/21/2022 12:37 DTL PM CDT Specimen Anatomical Collection Method Collection Time Receive d Time (Source) Location / / Volume Laterality Urine 04/21/2022 11:05 04/21/2022 AM CDT 12:05 PM CDT Patricia Cox M.D. LAB URINE ORDERABLES Performing Organization Address City/[facility] Phon e Number [facility] - [address] [place], [place] [address] [place] [id number] [place] [address] Osmolality, Urine (04/21/2022 11:05 AM CDT)Only the most recent of3 results within the time period is included. P athologist Signature Osmolality, U 367 150 - 1150 04/21/2022 DTL mOsm/kg 12:37 PM CDT Specimen Anatomical Collection Method Collection Time Receive d Time (Source) Location / / Volume Laterality Urine 04/21/2022 11:05 04/21/2022 AM CDT 12:05 PM CDT Patricia Cox M.D. LAB URINE ORDERABLES Performing Organization Address City/[facility] Phon e Number [facility] - [address] [place], [place] [address] [place], [place] [id number] [place] [address] (ABNORMAL) Urinalysis with Microscopic: Urine, Midstream (04/21/2022 11:05 AM CDT)Only the most recent of4 resultswithin the time period is included. Patholo gist Method Time Signature Source Midstream 04/21/2022 [...] Organization Address City/State/ZIP Code Phon e Number [facility] - [address] [place], [place] [address] [employer] [facility] [place] [address] [facility] [address] BMD Bone Density Spine Hips (04/21/2022 9:05 [...] Mineral Density (BMD) analysis perf ormed on [employer] with serial number [id number]. ? FINDINGS: Left Hip: Femur Neck: BMD [...] including images and graphs, is available in [employer]. In the absence of other causes of [...] Mineral Density (BMD) analysis perf ormed on [employer] with serial number [id number]. FINDINGS: Left Hip: Femur Neck: BMD = [...] including images and graphs, is available in [employer]. In the absence of other causes of [...] Neck Lef t) Patricia WESTFALL DXA PROCEDURES BKV DNA Detect/Quant (04/21/2022 7:45 AM CDT) [facility] Method Time Signature BKV DNA Undetected Undetected 04/21/2022 [facility] Detect/Quant, IU/mL 6:25 PM CDT P Comment: Result in log IU/mL is Undetected. ----ADDITIONAL INFORMATION---- The quantification range of this assay i s 22 to 100,000,000 IU/mL (1.34 log to 8.00 log IU/mL). Testing was performe d using the barrett BKV test ([employer] with the barrett 6800 System. Specimen Anatomical Collection Method Collection Time Receive d Time (Source) Location / / Volume Laterality Blood (Blood, 04/21/2022 7:45 AM 04/21/20 22 Venous) CDT 10:15 AM CDT Patricia Cox M.D. LAB MICROBIOLOGY - BLOOD ORD ERABLES Performing Organization Address City/State/ZIP Code Phon e Number [facility] [address] [facility] [address] [place], [place] [address] [facility] [place], [place] [phone] [place] [address] [place] (ABNORMAL) Lipid Panel (04/21/2022 7:45 [...] M.D. LAB BLOOD ADD-ON Performing Organization Address City/State/[facility] Code Phon e Number [facility] - [address] [place] [address] [employer] [facility] [place] [address] [facility] 200 [facility] Hepatic Function Panel (04/21/2022 7:45 AM CDT) [facility] gist Method Time Signature Bilirubin, [...] M.D. LAB BLOOD ADD-ON Performing Organization Address City/[facility] Phon e Number [facility] - [address] [place], [place] [address] [place] [address] [facility] [address] (ABNORMAL) Mycophenolic Acid (04/21/2022 7:45 AM CDT) Patholo gist Method Time Signature Mycophenolic Acid 6.3 [...] and its performa nce characteristics determined by [facility] in a manner consistent with CLIA requirements. This test has not been cleared or approved by the U.[place]. Jina d and Drug Administration. Specimen Anatomical Collection Method Collection Time Receive d Time (Source) Location / / Volume Laterality Blood (Blood, 04/21/2022 7:45 AM 04/21/20 22 Venous) CDT 10:06 AM CDT Patricia Cox M.D. LAB BLOOD NON ADD-ON Performing Organization Address City/State/[facility] Code Phon e Number [facility] [address] [place], [place] [address] SU[facility]ENTER [facility] [place] [address] [facility] [address] [place] 25-Hydroxyvitamin D2 and D3 (04/21/2022 7:45 AM CDT) P athologist Signature 25-Hydroxy D2 <4.0 ng/mL 04/25/2022 SDSC 3:41 PM CDT 25-Hydroxy D3 28 ng/mL 04/25/2022 SDSC 3:41 PM CDT 25-Hydroxy D 28 ng/mL 04/25/2022 [facility] Total 3:41 PM CDT Comment: ----REFERENCE VALUE---- 25-HYDROXY D TOTAL (D2+D3) Optimum level s in the healthy population are 20-50, patients with bone disease may benefit from higher levels within this r willie. ----ADDITIONAL INFORMATION---- This test was developed and its performa nce characteristics determined by [facility] in a manner consistent with CLIA requirements. This test has not been cleared or approved by the U.S. Jina d and Drug Administration. Specimen Anatomical Collection Method Collection Time Receive d Time (Source) Location / / Volume Laterality Blood (Blood, 04/21/2022 7:45 AM 04/21/20 9:52 Venous) CDT AM CDT Patricia Cox M.D. LAB BLOOD ADD-ON Performing Organization Address [facility] Phon e Number [address] [place], [place] [address] [facility] [place], [place] [id number] [place] [address] Dr. [place] (ABNORMAL) Troponin T, 5th Generation (04/21/2022 7:44 AM CDT)Only the most recent of2 resultswithin the time period is included. P athologist Signature Troponin T, 5th 92 (H) <=10 ng/L 04/21/2022 DTL gen 8:33 AM CDT Specimen Anatomical Collection Method Collection Time Receive d Time (Source) Location / / Volume Laterality Blood (Blood, 04/21/2022 7:44 AM 04/21/20 22 8:15 Venous) CDT AM CDT Patricia Cox M.D. LAB BLOOD ADD-ON Performing Organization Address City/[facility] Phon e Number [place] [address] [place], [place] [address] (ABNORMAL) Parathyroid Hormone (PTH) [...] M.D. LAB BLOOD ADD-ON Performing Organization Address [facility] Phon e Number [facility] - [address] [place], [place] [address] [employer] [facility] [place] [address] (ABNORMAL) APTT (Activated Partial Thromboplastin Time) (04/11/2022 7:29 AM CDT) Only the most recent of2 resultswithin the time period is included. P athologist Signature Activated 21 (L) 25 - 37 04/11/2022 DT Partial sec 8:25 AM CDT Thrombopl Time, P Specimen Anatomical Collection Method Collection Time Receive d Time (Source) Location / / Volume Laterality Blood (Blood, 04/11/2022 7:29 AM 04/11/20 7:43 Venous) CDT AM CDT Tony Burton, Sydnie, Mukund LAB BLOOD ADD-ON Performing Organization Address City/[facility] Phon e Number [facility] - [address] [place], [place] [address] [place] [address] [place], [place] [phone] [place] [address] Prothrombin Time (PT) (04/11/2022 7:29 AM [...] 7:43 Venous) CDT AM CDT Tony Burton, Shashi Otoole. LAB BLOOD ADD-ON Performing Organization Address City/[facility]/ZIP Code Phon e Number [facility] - [address] [place] [address] [employer] [facility] [place] [address] [facility] 200 [facility] (ABNORMAL) CBC without Differential (04/11/2022 7:29 AM CDT)Only the most recent of4 resultswithin the time period is included. [facility] gist Method Time Signature Hemoglobin [...] M.S.N. LAB BLOOD ADD-ON Performing Organization Address City/[facility] Phon e Number [facility] - [address] [place] [address] [employer] [facility] [place] [address] [facility] 200 [facility] (ABNORMAL) Glucose, POCT (04/09/2022 12:26 PM CDT)Only [...] Address City/State/ZIP Code Phon e Number [facility] [address] [place] [address] SERVICES PCDE [facility] [place] [address] [place] [facility] [address] (ABNORMAL) Basic Metabolic Panel (04/09/2022 5:27 AM [...] 04/09/2022 DTL Black/ mL/min/BSA 6:35 AM CDT Spanish Comment: ----ADDITIONAL INFORMATION---- Estimated GFR calculated using [...] Organization Address City/State/ZIP Code Phon e Number [facility] - [address] [place] [address] [employer] [place] [employer] [facility] [place] [address] [facility] 200 [facility] ECG 12 Lead (04/07/2022 7:47 AM CDT)Only the most recent of2 resultswithin the time period is included. P athologist Signature Ventricular Rate 64 BPM MUSE ECG/Min MS Interval 196 ms MUSE QRSD Interval 90 ms MUSE QT Interval 440 ms MUSE QTC Interval 453 ms MUSE P [place] 41 degrees MUSE R [place] -25 degrees MUSE T Wave [place] 31 degrees MUSE Specimen Anatomical Collection Method [...] vein patency: Patent. Ipsilateral common femoral artery: Patsunny t. Additional comments: None. Dunia WEST[place]ALL US PROCEDURES DX Abdomen Portable Anterior Posterior [...] bladder catheter. Radha WEST[place]ALL DIAGNOSTIC IMAGING PROCE [facility] Renal Pathology (04/06/2022 9:47 PM CDT) Component [...] ? Glomerular Disease (non-alloimmune): No ? Recurrent [place] disease: No Specimen (Source) Anatomical Collection Method Collection Time Re ceived Time Location / / Volume Laterality Biopsy (Kidney, 04/06/2022 9:47 PM Allograft) CDT Narrative This result has an attachment that is no t available. Nehemias Felipe M.D. LAB PATH RENAL ORDERABLES Performing Organization Address City/State/ZIP Code Phon e Number [facility] - [address] [place], [place] [address] [place] [employer] [facility] [place] [address] [facility] [address] Invasive Catheter (04/06/2022 [...] Complications - arterial: none ATTESTATION STATEMENT The eyewear consultant saw and evaluated the pat ient and discussed the findings and plan with the resident or fellow. Th e eyewear consultant agrees with the findings and plan. The eyewear consultant was pr esent for the entire procedure(s). [...] fellow participated in the procedure, and the eyewear consultant was present for the entire procedure. Haim Arredondo M.D. ANESTHESIA ORDERABLES HLA Class II Typing by Low Resolution, Donor Testing (04/06/2022 5:10 PM CDT) [facility] Method Time Signature Class II LR [id number] 04/14/2022 DBB8 Donor 4:21 PM CDT DRB1 - 1 DR4 Not 04/14/2022 DBB8 Equivalent Applicable 4:21 PM CDT DRB1 - 2 DR4 Not 04/14/2022 DBB[facility] Equivalent Applicable 4:21 PM CDT DRB1 - 1 DRB1*04:01 Not 04/14/2022 DBB8 Molecular Applicable 4:21 PM CDT DRB1 - 2 DRB1*04:04 Not 04/14/2022 D[facility] Molecular Applicable 4:21 PM CDT [id number] - 1 DR53 Not 04/14/2022 [facility]8 Equivalent Applicable 4:21 PM CDT IIC962 - 2 DR53 Not 04/14/2022 [facility] Equivalent Applicable 4:21 PM CDT UCQ380 - 1 DRB4*01:03 Not 04/14/2022 D[facility] Molecular Applicable 4:21 PM CDT [id number] - 2 DRB4*01:03 Not 04/14/2022 DBB8 Molecular [...] PM CDT Test Method PCR - Next 04/14/2022B8 Generation 4:21 PM CDT Sequencing Comment: Molecular HLA typing reported as serolog ical equivalents and intermediate to high resolution molecula r values. ??For convenience, when not defined in the WHO Nomenclature a laboratory defined serologic equivalent has been provided. This test was developed and its performa nce characteristics determined by [facility] in a manner co nsistent with CLIA requirements. This test has not been casper ared or approved by the U.S. Food and Drug Administration. CLIA: [id number] ??CLIA Drawbench Operator Helper: SHANTA LOYD MD,PhD Specimen Anatomical Collection Method Collection Time Receive d Time (Source) Location / / Volume Laterality Blood 04/06/2022 5:10 PM 5:10 CDT PM CDT Radha Black M.D. LAB HLA ORDERABLES Performing Organization Address City/State/ZIP Code Phon e Number [facility] - [address] [place] [address] [employer] [place] [employer] [facility] [facility] [place] [place] [address] [facility] 200 [facility] HLA Class I Typing by Low Resolution, Donor Testing (04/06/2022 5:10 PM CDT) [facility] Method Time Signature Class I LR [id number] 04/14/2022 DBB8 Donor 4:20 PM CDT A [...] and its performa nce characteristics determined by [facility] in a manner co nsistent with CLIA requirements. This test has not been casper ared or approved by the U.S. Food and Drug Administration. CLIA: [id number] ??CLIA Drawbench Operator Helper: SHANTA LOYD MD,PhD Specimen Anatomical Collection Method Collection Time Receive d Time (Source) Location / / Volume Laterality Blood 04/06/2022 5:10 PM 5:10 CDT PM CDT Radha Black M.D. LAB HLA ORDERABLES Performing Organization Address City/State/ZIP Code Phon e Number [facility] - [address] [place] [address] [place] [employer] [facility] [facility] [place] [place] [address] [facility] 200 [facility] HLA CROSSMATCH SUMMARY REPORT (04/06/2022 5:10 PM CDT) Specimen (Source) Anatomical Collection Method Collection Time Re ceived Time Location / / Volume Laterality 04/06/2022 5:10 PM CDT Narrative 04/17/2022 2:16 PM CDT This result has an attachment that is no t available. Ordered by an unspecified provider. Default Authenticator Chepe LAB HLA ORDERABLES HLA Flow Cytometric Crossmatch, Varies (04/06/2022 5:10 PM CDT) [facility] gist Method Time Signature FXM Crossmatch [id number] 04/06/2022 DBB8 Donor 8:27 PM CDT FXM [...] and its performa nce characteristics determined by [facility] in a manner co nsistent with CLIA requirements. This test has not been casper ared or approved by the U.S. Food and Drug Administration. CLIA: [id number] ??CLIA Drawbench Operator Helper: SHANTA LOYD MD,PhD Specimen Anatomical Collection Method Collection Time Receive d Time (Source) Location / / Volume Laterality Blood 04/06/2022 5:10 PM 2 5:10 CDT PM CDT Narrative [facility] - 04/10/2022 2:09 PM CDT Specimen Information: Specimen ID: [id number] Specimen Type: Blood Specimen Collection Start Date: 04/06/20 ??5:10 PM Specimen Received Date: 04/06/2022 ??5:1 0 PM Specimen ID: [id number] Specimen Type: Blood Specimen Collection Start Date: 04/06/20 ??5:10 PM Specimen Received Date: 04/06/2022 ??5:1 0 PM Specimen ID: [id number] Specimen Type: Blood Specimen Collection Start Date: 04/06/20 ??5:10 PM Specimen Received Date: 04/06/2022 ??5:1 0 PM Radha Black M.D. LAB HLA ORDERABLES Performing Organization Address City/State/ZIP Code Phon e Number [facility] - [address] [place] [address] [employer] [place] [employer] [facility] [place] [place] [address] [facility] [address] DX Chest Portable 1 [...] Chest otherwise negative. An Nicholas APRN, C.N.P., D.N.P., M.S.N. IMG DIAGN OSTIC IMAGING PROCEDURES HIV-1/-2 Ag and Ab Screen, Plasma (04/06/2022 4:30 PM CDT) P athologist Signature HIV-1/-2 Ag Negative Negative 04/06/2022 [facility] and Ab Screen, 9:15 PM [...] Organization Address City/State/ZIP Code Phon e Number [facility] [address] [place], [place] [address] SUPPORT CENTER [facility] [place] [address] Laboratory Medicine and Pathology [address] VALE Wang/[employer]kit [employer] Storage, B (04/06/2022 4:30 PM CDT) Analysis Performed At Patho logist Time Signature Storage, Red Collected DEFAULT 04/06/2022 HSS 4:30 PM CDT Storage, ACD Collected DEFAULT 04/06/2022 HSS 4:30 PM CDT Specimen Anatomical Collection Method Collection Time Receive d Time (Source) Location / / Volume Laterality Blood (Blood, 04/06/2022 4:30 PM 04/06/20 4:30 Venous) CDT PM CDT Narrative [facility] - 04/06/2022 4:30 PM CDT Specimen Information: Specimen ID: [id number] Specimen Type: Blood Specimen Collection Start Date: 04/06/20 22 ??4:30 PM Specimen Received Date: 04/06/2022 ??4:3 0 PM Specimen ID: [id number] Specimen Collection Start Date: 04/06/20 22 ??4:30 PM Specimen Received Date: 04/06/2022 ??4:3 0 PM Radha Black M.D. LAB BLOOD ADD-ON Performing Organization Address City/[facility] Phon e Number [facility] - [address] [place], [place] [address] [facility] [place] [address] [facility] [address] [facility] Type and Screen (with reflex Antibody ID) (04/06/2022 4:30 PM CDT) The [facility] Method Time Signature ABORh O Pos Not 04/06/2022 ETRM applicable 5:01 PM CDT Antibody Negative Negative 04/06/2022 ETRM Screen 5:17 PM CDT Type & Screen 04/09/2022 04/06/2022 ETRM Expiration 23:59 5:01 PM CDT Testing [place] DEFAULT 04/06/2022 ETRM Location 4:39 PM CDT Specimen Anatomical Collection Method Collection Time Receive d Time (Source) Location / / Volume Laterality Blood (Arm, 04/06/2022 4:30 PM 4:39 Left) CDT PM CDT Radha Black M.D. LAB BLOOD BANK TEST ORDERABL ES Performing Organization Address City/[facility] Phon e Number [facility] - [address] [place] [address] [place] [employer] [facility] [place] [address] [facility] 200 [facility] HLA Class I/II Combined cPRA, S (04/06/2022 4:29 PM CDT)Only the most recent of2 resultswithin the time period is included. [facility] Method Time Signature Class I/II 50 Not [...] frequencies published by [employer] listed here: [email or web address]://[email or web address] CLIA: [id number] ??CLIA Drawbench Operator Helper: SHANTA LOYD MD,PhD Combined cPRA Specificities see below 04/10/2022 8 :06 AM CDT DBB8 Comment: A:32 B:38 49 51 78 DQ:2 Specimen Anatomical Collection Method Collection Time Receive d Time (Source) Location / / Volume Laterality Blood 04/06/2022 4:29 PM 7:41 CDT AM CDT Radha Black M.D. LAB HLA ORDERABLES Performing Organization Address City/State/ZIP Code Phon e Number [facility] - [address] [place], [place] [address] [employer] [facility] [place] [place] [address] [facility] [address] [facility] HLA Class II SAB Antibody Screen (04/06/2022 4:29 PM CDT)Only the most recent of 2 resultswithin the time period is included. [facility] Method Time Signature Class II SAB Positive Not Applicable 04/10/2022 DBB8 Overall Result 8:00 AM CDT SAB DRB1 NONE 04/10/2022 DBB8 Specificity 8:00 AM CDT SAB [id number] NONE 04/10/2022 DBB8 Specificity 8:00 AM CDT SAB DQB1 see below 04/10/2022 DBB8 Specificity 8:00 AM CDT Comment: 2(A*05:01;B*02:01)[0298] Format: Serologic Eq.(DQA1;DQB1 Mol. All jorge)[Normalized MFI] NOTE: Data is displayed in descending or kristi by Mean Fluorescence Intensity (MFI). ??Serologic equivalents can be di splayed multiple times for different molecular alleles. SAB DPB1 Specificity see below 04/10/2022 8:00 AM CDT DBB8 Comment: 6(A*01:03;B*06:01)[280] Format: Serologic Eq.(DPA1;DPB1 Mol. All jorge)[Normalized MFI] NOTE: Data is displayed in descending or kristi by Mean Fluorescence Intensity (MFI). ??Serologic equivalents can be di splayed multiple times for different molecular alleles. ----ADDITIONAL INFORMATION---- Method: Luminex Flow Cytometry CLIA: [id number] ??CLIA Drawbench Operator Helper: SHANTA LOYD MD,PhD Specimen Anatomical Collection Method Collection Time Receive d Time (Source) Location / / Volume Laterality Blood (Blood, 04/06/2022 4:29 PM 04/07/20 7:41 Venous) CDT AM CDT Radha Black M.D. LAB HLA ORDERABLES Performing Organization Address City/State/ZIP Code Phon e Number [facility] - [address] [place], [place] [address] [employer] [place] [employer] [facility] [employer] [facility] DBB8 [place] [address] [facility] [address] HLA Class I SAB Antibody Screen (04/06/2022 4:29 PM CDT)Only the most recent of2 resultswithin the time period is included. [facility] Method Time Signature Class I SAB Positive Not Applicable 04/10/2022 DBB8 Overall Result 7:58 AM CDT SAB A see below 04/10/2022 DBB8 Specificity 7:58 AM CDT Comment: 32(32:01)[209], 25(25:01)[1188], 31(31: 01)[1163], 24(24:03)[1102], 30(30:01)[989], 23(23:0 1)[911], 24(24:02)[877], 30(30:02)[527] Format: Serologic Eq.(A Mol. Allele)[Nor malized MFI] NOTE: Data is displayed in descending or kristi by Mean Fluorescence Intensity (MFI). ??Serologic equivalents can be di splayed multiple times for different molecular alleles. SAB B Specificity see below 04/10/2022 7:58 AM CDT DBB8 Comment: 51(51:01)[4780], 49(49:01)[8818], 51(51: 02)[0013], 78(78:01)[6539], 38(38:01)[2150], 59(59: 01)[1992], 63(15:16)[1969], 75(15:02)[1783], 52(52: 01)[1776], 77(15:13)[1535], 53(53:01)[1357], 57(57: 03)[1326], 57(57:01)[1269], 58(58:01)[986], 67(67:0 1)[703], 75(15:11)[524] Format: Serologic Eq.(B Mol. Allele)[Nor malized MFI] NOTE: Data is displayed in descending or kristi by Mean Fluorescence Intensity (MFI). ??Serologic equivalents can be di splayed multiple times for different molecular alleles. SAB C Specificity NONE 04/10/2022 7:58 AM CDT DBB8 Comment: ----ADDITIONAL INFORMATION---- Method: Luminex Flow Cytometry CLIA: [id number] ??CLIA Drawbench Operator Helper: SHANTA LOYD MD,PhD Specimen Anatomical Collection Method Collection Time Receive d Time (Source) Location / / Volume Laterality Blood (Blood, 04/06/2022 4:29 PM 04/07/20 7:41 Venous) CDT AM CDT Radha Black M.D. LAB HLA ORDERABLES Performing Organization Address [facility] Phon e Number [facility] - [address] DBB8 [place] [address] [facility] [address] Bilirubin, Direct (04/06/2022 4:29 PM CDT) P athologist Signature Bilirubin, <0.2 0.0 - 0.3 04/06/2022 DTL Direct, P mg/dL 5:16 PM CDT Specimen Anatomical Collection Method Collection Time Receive d Time (Source) Location / / Volume Laterality Blood (Blood, 04/06/2022 4:29 PM 04/06/20 22 5:01 Venous) CDT PM CDT Radha Black M.D. LAB BLOOD ADD-ON Performing Organization Address City/[facility] Phon e Number [facility] - [address] [place] [address] [employer] [facility] DTL [address] Bilirubin, Total (04/06/2022 4:29 PM CDT) athologist Signature Bilirubin, 0.3 <=1.2 mg/dL 04/06/2022 METH Total, P 4:55 PM CDT Specimen Anatomical Collection Method Collection Time Receive d Time (Source) Location / / Volume Laterality Blood (Blood, 04/06/2022 4:29 PM 04/06/20 4:40 Venous) CDT PM CDT Radha Black M.D. LAB BLOOD ADD-ON Performing Organization Address City/[facility]/ZIP Code Phon e Number [facility] - [address] METH [address] Osmolality, Urine (04/06/2022 4:19 PM CDT) athologist Signature Osmolality, U 316 150 - 1150 04/06/2022 DTL mOsm/kg 5:12 PM CDT Specimen Anatomical Collection Method Collection Time Receive d Time (Source) Location / / Volume Laterality Urine 04/06/2022 4:19 PM 2 4:28 CDT PM CDT Radha Black M.D. LAB URINE ORDERABLES Performing Organization Address City/[facility]/ZIP Code Phon e Number [facility] - [address] (ABNORMAL) pH, Random, Urine (04/06/2022 4:19 PM CDT) athologist Signature pH, Random, U 8.1 (H) 4.5 - 8.0 04/06/2022 DTL 5:07 PM CDT Specimen Anatomical Collection Method Collection Time Receive d Time (Source) Location / / Volume Laterality Urine 04/06/2022 4:19 PM 2 4:28 CDT PM CDT Radha Black M.D. LAB URINE ORDERABLES Performing Organization Address City/[facility]/ZIP Code Phon e Number [facility] - [address] [place] [address] [place] [address] [place] [address] [address] SARS Coronavirus 2, PCR Rapid, V Asymptomatic (04/06/2022 4:19 PM CDT) [facility] Method Time Signature SARS CoV-2, Undetected Undetected 04/06/2022 [facility] PCR, Rapid, V 5:32 PM CDT Comment: ----ADDITIONAL INFORMATION---- This RT-PCR test was performed using the Krupa SARS-CoV-2 and Influenza A/B Reagent assay from [employer], which has received Emergency Use Authori zation(EUA) by the U.S. Food and Drug Administration . Fact sheets for this Emergency Use Autho rization (EUA) assay can be found at the following link s: For Healthcare Providers: https://www.fda.gov/media/261198/downloa d For Patients: https://www.fda.gov/media/673656/downloa d SARS Coronavirus 2, Source, Rapid Swab, Nasopharynx 04/06/2022 4:51 PM CDT [facility] Spec[facility] Anatomical Collection Method Collection Time Receive d Time (Source) Location / / Volume Laterality Varies 04/06/2022 4:19 PM 4:51 (Nasopharynx) CDT PM CDT An Nicholas APRN, C.N.P., D.N.P., M.S.N. LAB MICRO BIOLOGY - GENERAL ORDERABLES Performing Organization Address City/State/ZIP Code Phon e Number [facility] - [address] [place] [address] 05 [place] [address] [facility]-[address] (ABNORMAL) Gram Stain, Urine (04/06/2022 4:19 PM CDT) [facility] Method Time Signature Source Urine, Urine, 04/06/2022 [...] M.D. LAB URINE ORDERABLES Performing Organization Address City/[facility]/ZIP Code Phon e Number [facility] - [address] [place], [place] [address] [employer] [facility] [facility] [place] [address] [facility] [address] HBs Antigen Scrn, S (04/06/2022 3:28 PM CDT) athologist Signature HBs Antigen Negative Negative 04/06/2022 [facility], S 9:10 PM CDT Specimen Anatomical Collection Method Collection Time Receive d Time (Source) Location / / Volume Laterality Blood (Blood, 04/06/2022 3:28 PM 04/06/20 5:57 Venous) CDT PM CDT Radha Black M.D. LAB MICROBIOLOGY - BLOOD ORD ERABLES Performing Organization Address City/[facility]/ZIP Code Phon e Number [facility] [address] [place] [address] 05 [facility]PPORT [facility] [place] [address] Laboratory Medicine and Pathology [address] [place] [address] Dr. COLLAZO HBc Total Ab Scrn, S (04/06/2022 3:28 PM CDT) athologist [facility] HBc Total Ab Negative Negative 04/06/2022 SDSC Scrn, S 9:26 PM CDT Specimen Anatomical Collection Method Collection Time Receive d Time (Source) Location / / Volume Laterality Blood (Blood, 04/06/2022 3:28 PM 04/06/20 22 5:57 Venous) CDT PM CDT Radha Black M.D. LAB MICROBIOLOGY - BLOOD ORD ERABLES Performing Organization Address City/[facility]/ZIP Code Phon e Number [facility] [address] [place], [place] [address] [facility] [place] [address] Laboratory Medicine and Pathology [address] [place] [address] Dr. COLLAZO HBs Antibody Scrn, S (04/06/2022 3:28 PM CDT) athologist Signature HBs Antibody Negative 04/06/2022 [facility]SC Scrn, S 9:27 PM CDT Comment: Patient is presumed to be not immune to infection with HBV. ----REFERENCE VALUE---- Unvaccinated: Negative Vaccinated: Positive HBs Antibody, Quantitative, S <5.0 mIU/mL 04/06/2022 9:27 PM CDT [facility] Comment: ----REFERENCE VALUE---- Unvaccinated: <5.0 Vaccinated: >=12.0 Specimen Anatomical Collection Method Collection Time Receive d Time (Source) Location / / Volume Laterality Blood (Blood, 04/06/2022 3:28 PM 04/06/20 5:57 Venous) CDT PM CDT Radha Black M.D. LAB MICROBIOLOGY - BLOOD ORD EDD Performing Organization Address City/[facility]/ZIP Code Phon e Number [facility] [address] [place] [address] 05 [facility] [place] [address] Laboratory Medicine and Pathology [facility] [address] CO[place] HCV Ab Scrn w/Reflex to HCV PCR, Serum (04/06/2022 3:28 PM CDT) athologist Signature HCV Ab Screen, Negative Negative 04/06/2022 [facility] S 9:27 PM CDT Comment: Jjtsbe-aq-jkcqmv ratio is <1.00 . Specimen (Source) Anatomical Collection Method Collection Time Re ceived Time Location / / Volume Laterality Blood (Blood, 04/06/2022 3:28 04/06/2022 5:57 Peripheral Draw) PM CDT PM CDT Radha Black M.D. LAB MICROBIOLOGY - BLOOD SON PUGA Performing Organization Address City/State/ZIP Code Phon e Number [facility] [address] [place] [address] [facility] [place] [address] Laboratory Medicine and Pathology [facility] [address] COLLAZO from Last 3 Months
--- OUTSIDE RECORDS SUMMARY | 2022-05-25 12:58 | XMS_ITS | Encounter Summary ---
:1960 Author Organization [facility] Address [address] [place] [address] Care Team Providers Name Role Phone Elsewhere, Pcp Primary Care Provider Unavailable Encounter Details Date Type Department Care Team Description 05/04/2022 Orders Only [facility] Pharm[facility] - Sray Perdomo [address] [place] [address] 1 [address] [place] [address] [place] [address] [phone] Social History Tobacco Use Types Packs/Day Years Used Date Smoking Tobacco: Former Cigarettes 0.5 30 Star rebecca: 01/29/1975 Smokeless Tobacco: Never Alcohol Use Standard Drinks/Week Comments No 0 [...] 12/23/2021 relatives? How often do you attend lutheran or zoroastrian 1 to 4 times per year 12/23/2021 services? Do you belong to any clubs or organizations such No 12/23/2021 as lutheran groups, unions, fraternal or athletic groups, or [...] Date Recorded Female 12/23/2021 4:18 AM CDT documented as of 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 Plan of Treatment Upcoming Encounters Date Type Specialty Care Team Description 06/01/2022 Telemedicine Pharmacy An Nicholas APRN C.N.P., D.N.P., M.S.N. [address] [place] [phone] (Wo rk) 07/31/2022 Lab Laboratory Medicine Tony Rubalcava M. B., ChBurke, MDebra [address] [place] [address] [phone] (Wo rk) 07/31/2022 Lab Laboratory Medicine Tony Rubalcava M. B., ChBurke, MDebra [address] [place] [phone] (Wo rk) 07/31/2022 Office Visit Transplant Tony Rubalcava M.B., ChBurke, MDebra [address] [place] [phone] (Wo rk) 07/31/2022 Appointment Radiology Tony Rubalcava M.B., Sydnie, MDebra [address] [place] [address] [phone] (Wo rk) 08/01/2022 Office Visit Transplant Tony Rubalcava M.B., Mukund Otoole [address] [place] [phone] (Wo rk) 08/01/2022 Clinical Support Transplant Tony Rubalcava M.B., Sydnie, Mukund [address] [place] [phone] (Wo rk) documented as of 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 Visit Diagnoses Not on filedocumented in 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 Additional Health Concerns Assessment Noted Time PHQ-9 Depression Total Score: 3 04/07/2021 9:37 AM CDT documented as of 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 Care Teams Interviewing Clerk Relationship Specialty Start Date End Date Elsewhere, Pcp PCP - General 09/17/19 [facility] External Provider Laboratory Medicine 04/25/22 documented as of 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
--- OUTSIDE RECORDS SUMMARY | 2022-05-25 12:58 | XMS_ITS | Encounter Summary ---
:1960 Author Organization [facility] Address [address] [place] [address] Care Team Providers Name Role Phone Elsewhere, Pcp Primary Care Provider Unavailable Encounter Details Date Type Department Care Team Description 05/22/2022 Orders Only Ata Vega [facility] External, Or roman for Transplantation and Mukund [place] [facility] in [place], [place] [address] [place] [address] Social History Tobacco Use Types Packs/Day Years [...] 12/23/2021 relatives? How often do you attend confucianism or mu-ism 1 to 4 times per year 12/23/2021 services? Do you belong to any clubs or organizations such No 12/23/2021 as confucianism groups, unions, fraternal or athletic groups, or [...] place to sleep or slept in a snf (including now)? Education Answer Date Recorded What is the highest level of school you have GED or equivale nt 01/26/2019 completed or the highest degree you have received? Sex Assigned at Date Recorded Female 12/23/2021 4:18 AM CDT documented as of 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 Plan of Treatment Upcoming Encounters Date Type Specialty Care Team Description 06/01/2022 Telemedicine Pharmacy An Nicholas APRN, C.NDaviP., D.N.P., M.S.N. [address] [place] [phone] (Nicolas wen) 07/31/2022 Lab Laboratory Medicine Tony Rubalcava M. B., ChBurke, MElvia. [address] [place] [phone] (Nicolas wen) 07/31/2022 Lab Laboratory Medicine Tony Rubalcava M. B., ChBurke, MElvia. [address] [place] [phone] (Nicolas wen) 07/31/2022 Office Visit Transplant Tony Rubalcava M.B., ChDaviBDavi, MDebra [address] [place] [phone] ( behzad) 07/31/2022 Appointment Radiology Tony Rubalcava M.B., ChBurke, MElvia. [address] [place] [phone] (Nicolas wen) 08/01/2022 Office Visit Transplant Tony Rubalcava M.B., Mukund Otoole [address] [place], [place] [phone] (Wo rk) 08/01/2022 Clinical Support Transplant Tony Rubalcava M.B., Mukund Otoole [address] [place], [place] [phone] (Wo rk) documented as of 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 Procedures Procedure Name Priority Date/Time Associated Comments Diagnosis TACROLIMUS LEVEL, B Routine 05/22/2022 10:03 AM R esults for this CDT procedure are i n the results section. documented in 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 Results Tacrolimus, B (05/22/2022 10:03 AM CDT) P athologist Signature EXT Tacrolimus 10.6 ng/mL [facility] Specimen (Source) Anatomical Collection Method Collection Time Re ceived Time Location / / Volume Laterality 05/22/2022 10:03 AM CDT Narrative [facility] - 05/25/2022 8:34 AM CDT This result has an attachment that is no t available. External results verified in Extract by Radha Mauricio on 05/25/2022 at 08:32 AM. Ordering Provider External M.DDavi LAB BLOOD NON ADD-ON Performing Organization Address City/State/ZIP Code Phon e Number [facility] [address] [place] [address] documented in 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 Visit Diagnoses Not on filedocumented in 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 Additional Health Concerns Assessment Noted Time PHQ-9 Depression Total Score: 3 04/07/2021 9:37 AM CDT documented as of 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 Care Teams Internal Communications Specialist Relationship Specialty Start Date End Date Elsewhere, Pcp PCP - General 09/17/19 [facility] External Provider Laboratory Medicine 04/25/22 documented as of 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
--- OUTSIDE RECORDS SUMMARY | 2022-05-25 12:58 | XMS_ITS | Encounter Summary ---
:1960 Author Organization [facility] Address [address] [place] [address] Care Team Providers Name Role Phone Elsewhere, Pcp Primary Care Provider Unavailable Encounter Details Date Type Department Care Team Description 05/08/2022 Orders Only Ata Vega [facility] External, [facility] for [facility] and Mukund [place] Clinical Regeneration in [place], [place] [address] [place] [address] Social History Tobacco Use Types Packs/Day [...] 12/23/2021 relatives? How often do you attend temple or evangelical 1 to 4 times per year 12/23/2021 services? Do you belong to any clubs or organizations such No 12/23/2021 as temple groups, unions, fraternal or athletic groups, or [...] place to sleep or slept in a long-term (including now)? Education Answer Date Recorded What [...] An Nicholas APRN, C.NDaviP., D.N.P., M.S.N. [address] [place] [phone] (Nicolas wen) 07/31/2022 Lab Laboratory Medicine Tony Rubalcava M. B., ChBurke, MElvia. [address] [place] [phone] (Nicolas wen) 07/31/2022 Lab Laboratory Medicine Tony Rubalcava M. B., ChBurke, MElvia. [address] [place] [phone] (Nicolas wen) 07/31/2022 Office Visit Transplant Tony Rubalcava M.B., ChDaviBDavi, MDebra [address] [place] [phone] ( behzad) 07/31/2022 Appointment Radiology Tony Rubalcava M.B., ChBurke, MElvia. [address] [place] [phone] (Nicolas wen) 08/01/2022 Office Visit Transplant Tony Rubalcava M.B., Mukund Otoole [address] [place], [place] [phone] (Wo rk) 08/01/2022 Clinical Support Transplant Tony Rubalcava M.B., Sydnie, Mukund [address] [place], [place] [phone] (Wo rk) documented as of 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 Procedures Procedure Name Priority Date/Time Associated Diagnosis Comme nts HIV-1 RNA DETECT / Routine 05/08/2022 10:50 AM Re sults for this QUANT CDT procedure are i n the results section. documented in 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 Results HIV-1 RNA Detect / Quant (05/08/2022 10:50 AM CDT) [facility] gist Method Time Signature EXT HIV-1 RNA Not Detected copies/mL [employer] [facility] Detect/Quant, [facility] Specimen (Source) Anatomical Collection Method Collection Time Re ceived Time Location / / Volume Laterality 05/08/2022 10:50 AM CDT Narrative [employer] - 05/15/2022 9:45 AM CDT This result has an attachment that is no t available. External results verified in Extract by Radha Mauricio on 05/15/2022 at 09:43 AM. Ordering Provider External M.DDavi LAB MICROBIOLOGY - BLO OD ORDERABLES Performing Organization Address City/State/ZIP Code Phon e Number [employer] [address] [place] [address] documented in 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 Visit Diagnoses Not on filedocumented in 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 Additional Health Concerns Assessment Noted Time PHQ-9 Depression Total Score: 3 04/07/2021 9:37 AM CDT documented as of 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 Care Teams Automatic Thread Winder Relationship Specialty Start Date End Date Elsewhere, Pcp PCP - General 09/17/19 [facility] External Provider Laboratory Medicine 04/25/22 documented as of 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
--- OUTSIDE RECORDS SUMMARY | 2022-05-25 12:58 | XMS_ITS | Encounter Summary ---
:1960 Author Organization [facility] Address [address] [place] [address] Care Team Providers Name Role Phone Elsewhere, Pcp Primary Care Provider Unavailable Encounter Details Date Type Department Care Team Description 05/22/2022 Orders Only Ata [facility] External, Or roman for Transplantation and Mukund Lyons Clinical Regeneration in [place], [place] [address] [place] [address] Social History Tobacco Use Types Packs/Day [...] 12/23/2021 relatives? How often do you attend caodaism or yazidism 1 to 4 times per year 12/23/2021 services? Do you belong to any clubs or organizations such No 12/23/2021 as caodaism groups, unions, fraternal or athletic groups, or [...] place to sleep or slept in a halfway (including now)? Education Answer Date Recorded What [...] An Nicholas APRN, C.NDaviP., D.N.P., M.S.N. [address] [place] [address] [phone] (Nicolas wen) 07/31/2022 Lab Laboratory Medicine Tony Rubalcava M. B., ChBurke, MElvia. [address] [place] [address] [phone] (Nicolas wen) 07/31/2022 Lab Laboratory Medicine Tony Rubalcava M. B., ChBurke, MElvia. [address] [place] [address] [phone] (Nicolas wen) 07/31/2022 Office Visit Transplant Tony Rubalcava M.B., ChDaviBDavi, MDebra [address] [place] [address] [phone] ( behzad) 07/31/2022 Appointment Radiology Tony Rubalcava M.B., ChBurke, MElvia. [address] [place] [address] [phone] (Nicolas wen) 08/01/2022 Office Visit Transplant Tony Rubalcava M.B., Mukund Otoole [address] [place], [place] [phone] (Wo rk) 08/01/2022 Clinical Support Transplant Tony Rubalcava M.B., Mukund Otoole [address] [place], [place] [phone] (Wo rk) documented as of 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 Procedures Procedure Name Priority Date/Time Associated Comments Diagnosis POTASSIUM, S/P Routine 05/22/2022 10:03 AM Result s for this CDT procedure are i n the results section. PHOSPHORUS Routine 05/22/2022 10:03 AM Results for this (INORGANIC), S CDT procedure are in the results section. MAGNESIUM, S Routine 05/22/2022 10:03 AM Results for this CDT procedure are i n the results section. GLUCOSE, RANDOM, S/P Routine 05/22/2022 10:03 AM Results for this CDT procedure are i n the results section. CREATININE WITH Routine 05/22/2022 10:03 AM Resul ts for this EGFR, S/P CDT procedure are i n the results section. documented in 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 Results Magnesium (05/22/2022 10:03 AM CDT) P athologist Signature EXT Magnesium 2.0 1.5 - 2.6 [place] mg/dL [facility] Specimen (Source) Anatomical Collection Method Collection Time Re ceived Time Location / / Volume Laterality 05/22/2022 10:03 AM CDT Narrative [facility] Sty[facility] - 05/23/2022 8:24 AM CDT Source result document attached to Order Number [id number] ([id number]) dated 05/22/2022. External results verified in Extract by Mina De La Torre on 05/23/2022 at 08:21 AM. Ordering Provider External MDebra LAB BLOOD ADD-ON Performing Organization Address City/State/ZIP Code Phon e Number [address] [id number] [phone] LABORATORY SO[facility] Phosphorus Inorganic (05/22/2022 10:03 AM CDT) P athologist Signature EXT Phosphorus 3.5 2.5 - 4.5 [place] (Inorganic), S mg/dL [facility] Specimen (Source) Anatomical Collection Method Collection Time Re ceived Time Location / / Volume Laterality 05/22/2022 10:03 AM CDT Narrative SOFT[facility] - 05/23/2022 8:24 AM CDT Source result document attached to Order Number [id number] ([id number]) dated 05/22/2022. External results verified in Extract by Mina De La Torre on 05/23/2022 at 08:21 AM. Ordering Provider External Mukund LAB BLOOD ADD-ON Performing Organization Address City/[facility]/ZIP Code Phon e Number [address] [phone] LABORATORY SOFTLAB [facility] LOCATION GROUP (ABNORMAL) Glucose, Random (05/22/2022 10:03 AM CDT) athologist Signature EXT Glucose 124 (H) 60 - 115 [place] mg/dL [facility] Specimen (Source) Anatomical Collection Method Collection Time Re ceived Time Location / / Volume Laterality 05/22/2022 10:03 AM CDT [facility]ative [facility] - 05/23/2022 8:24 AM CDT Source result document attached to Order Number [id number] ([id number]) dated 05/22/2022. External results verified in Extract by Mina De La Torre on 05/23/2022 at 08:21 AM. Ordering Provider External Mukund LAB BLOOD TROPONIN Performing Organization Address City/[facility]/[place] [address], [facility] [phone] LABORATORY SOFT[facility] LOC[facility] (ABNORMAL) Creatinine with Estimated GFR (05/22/2022 10:03 AM CDT) Analysis Performed At Patho logist Time [facility] EXT Creatinine 2.1 (H) 0.5 - 1.5 [place] mg/dL [facility] Specimen (Source) Anatomical Collection Method Collection Time Re ceived Time Location / / Volume Laterality 05/22/2022 10:03 AM CDT [facility] - 05/23/2022 8:24 AM CDT Source result document attached to Order Number [id number] ([id number]) dated 05/22/2022. External results verified in Extract by Mina De La Torre on 05/23/2022 at 08:21 AM. Ordering Provider Ferny Duval LAB BLOOD ADD-ON Performing Organization Address City/[facility]/ZIP Code Phon e Number [address] [address], [facility] [phone] LABORATORY [facility] Potassium (05/22/2022 10:03 AM CDT) P athologist Signature EXT Potassium 4.0 3.6 - 5.1 [place] mmol/L [facility] Specimen (Source) Anatomical Collection Method Collection Time Re ceived Time Location / / Volume Laterality 05/22/2022 10:03 AM CDT Narrative [facility] - 022 8:24 AM CDT This result has an attachment that is no t available. External results verified in Extract by Mina De La Torre on 05/23/2022 at 08:21 AM. Ordering Provider Ferny Duval LAB BLOOD ADD-ON Performing Organization Address City/[facility]/ZIP Code Phon e Number [facility] [address] [place] [address] documented in 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 Visit Diagnoses Not on filedocumented in 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 Additional Health Concerns Assessment Noted Time PHQ-9 Depression Total Score: 3 04/07/2021 9:37 AM CDT documented as of 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 Care Teams Director Of Sales And Marketing Relationship Specialty Start Date End Date Elsewhere, Pcp PCP - General 09/17/19 [facility] External Provider Laboratory Medicine 04/25/22 documented as of 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
--- OUTSIDE RECORDS SUMMARY | 2022-05-25 12:58 | XMS_ITS | Encounter Summary ---
:1960 Author Organization [facility] Address [address] [place] [address] Care Team Providers Name Role Phone Elsewhere, Pcp Primary Care Provider Unavailable Encounter Details Date Type Department Care Team Description 05/03/2022 Clinical Communication Ata Mcguire, [facility] Sandra Belle R.N., Transplantation and C.C.T.C. Clinical Regeneration in [address] [place] [address] [place] [address] [place] [address] [phone] Social History Tobacco Use Types Packs/Day Years [...] 12/23/2021 relatives? How often do you attend christian or mormonism 1 to 4 times per year 12/23/2021 services? Do you belong to any clubs or organizations such No 12/23/2021 as christian groups, unions, fraternal or athletic groups, or [...] place to sleep or slept in a half-way (including now)? Education Answer Date Recorded What is the highest level of school you have GED or equivale nt 01/26/2019 completed or the highest degree you have received? Sex Assigned at Date Recorded Female 12/23/2021 4:18 AM CDT documented as of 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 Miscellaneous Notes Telephone Encounter - Charity Gutiérrez R.N., C.C.T.C. 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 Please call back at if needed. Thank you! documented in 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 Plan of Treatment Upcoming Encounters Date Type Specialty Care Team Description 06/01/2022 Telemedicine Pharmacy An Nicholas APRN, C.N.P., D.N.P., M.S.N. [address] [place] [address] [phone] (Wo rk) 07/31/2022 Lab Laboratory Medicine Tony Rubalcava M. B., Sydnie, MDebra [address] [place] [address] [phone] (Wo rk) 07/31/2022 Lab Laboratory Medicine Tony Rubalcava M. B., Sydnie, Mukund [address] [place] [address] [phone] (Wo rk) 07/31/2022 Office Visit Transplant Tony Rubalcava M.B., Sydnie, Mukund [address] [place] [address] [phone] (Wo rk) 07/31/2022 Appointment Radiology Tony Rubalcava M.B., Sydnie, Mukund [address] [place] [address] [phone] (Wo rk) 08/01/2022 Office Visit Transplant Tony Rubalcava M.B., Sydnie, MDebra [address] [place] [address] [phone] (Wo rk) 08/01/2022 Clinical Support Transplant Tony Rubalcava M.B., Sydnie, MDebra [address] [place] [address] [phone] (Wo rk) documented as of 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 Visit Diagnoses Not on filedocumented in 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 Additional Health Concerns Assessment Noted Time PHQ-9 Depression Total Score: 3 04/07/2021 9:37 AM CDT documented as of 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 Care Teams Nuclear Security Officer Relationship Specialty Start Date End Date Elsewhere, Pcp PCP - General 09/17/19 [facility] External Provider Laboratory Medicine 04/25/22 documented as of 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
--- OUTSIDE RECORDS SUMMARY | 2022-05-25 12:58 | XMS_ITS | Encounter Summary ---
:1960 Author Organization [facility] Address [address] [place] [address] Care Team Providers Name Role Phone Elsewhere, Pcp Primary Care Provider Unavailable Reason for Visit Reason Comments Med Refill Encounter Details Date Type Department Care Team Description 05/02/2022 [facility] Jeovanny Barron APRN, Med Refill Transplantation and Clinical C.N .P., M.S.N. Regeneration in [place], [address] [place], [place] [address] [place] [address] [place] [address] [phone] Social History Tobacco Use Types Packs/Day Years [...] 12/23/2021 relatives? How often do you attend pentecostal or buddhism 1 to 4 times per year 12/23/2021 services? Do you belong to any clubs or organizations such No 12/23/2021 as pentecostal groups, unions, fraternal or athletic groups, or [...] place to sleep or slept in a mcfp (including now)? Education Answer Date Recorded What is the highest level of school you have GED or equivale nt 01/26/2019 completed or the highest degree you have received? Sex Assigned at Date Recorded Female 12/23/2021 4:18 AM CDT documented as of 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 Miscellaneous Notes Telephone Encounter - Alexa Kent R.N. - 05/03/2022 2:35 PM CDT Duplicate Rx documented in 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 Plan of Treatment Upcoming Encounters Date Type Specialty Care Team Description 06/01/2022 Telemedicine Pharmacy An Nicholas APRN C.N.P., D.N.P., M.S.N. [address] [place] [address] [phone] (Nicolas wen) 07/31/2022 Lab Laboratory Medicine Tony Rubalcava M. B., Ch.B., M.D. [address] [place] [address] [phone] (Nicolas wen) 07/31/2022 Lab Laboratory Medicine Tony Rubalcava M. B., Ch.B., M.D. [address] [place] [address] [phone] (Wo rk) 07/31/2022 Office Visit Transplant Tony Rubalcava M.B., Sydnie, Mukund [address] [place] [address] [phone] (Wo rk) 07/31/2022 Appointment Radiology Tony Rubalcava M.B., Sydnie, Mukund [address] [place] [address] [phone] (Wo rk) 08/01/2022 Office Visit Transplant Tony Rubalcava M.B., Sydnie, Muknud [address] [place] [address] [phone] (Wo rk) 08/01/2022 Clinical Support Transplant Tony Rubalcava M.B., Sydnie, Mukund [address] [place] [address] [phone] (Wo rk) documented as of 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 Visit Diagnoses Diagnosis Transplant Renal (HCC) documented in 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 Additional Health Concerns Assessment Noted Time PHQ-9 Depression Total Score: 3 04/07/2021 9:37 AM CDT documented as of 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 Care Teams Software Reverse Engineer Relationship Specialty Start Date End Date Elsewhere, Pcp PCP - General 09/17/19 [facility] External Provider Laboratory Medicine 04/25/22 documented as of 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
--- OUTSIDE RECORDS SUMMARY | 2022-05-25 12:58 | XMS_ITS | Encounter Summary ---
:1960 Author Organization [facility] Address [address] [place] [address] Care Team Providers Name Role Phone Elsewhere, Pcp Primary Care Provider Unavailable Reason for Visit Reason Comments Labs Only Creatinine Encounter Details Date Type Department Care Team Description 05/24/2022 Clinical Ata Chaves, [facility] for Stephanie Bruno (Creatinine) Transplantation and R.N. Clinical Regeneration [address] [facility] [phone] [place] [address] [place], [place] (Work) [phone] Social History Tobacco Use Types Packs/Day Years [...] 12/23/2021 relatives? How often do you attend presybeterian or hinduism 1 to 4 times per year 12/23/2021 services? Do you belong to any clubs or organizations such No 12/23/2021 as presybeterian groups, unions, fraternal or athletic groups, or [...] place to sleep or slept in a mcc (including now)? Education Answer Date Recorded What is the highest level of school you have GED or equivale nt 01/26/2019 completed or the highest degree you have received? Sex Assigned at Date Recorded Female 12/23/2021 4:18 AM CDT documented as of 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 Miscellaneous Notes Telephone Encounter - Stephanie Lowe R.N. - 05/25/2022 9:25 AM CDT SUBJECTIVE CHIEF COMPLAINT / REASON FOR CALL Labs Only (Creatinine) PLAN The following information was provided: Called patient to discuss plan of care via phone vs via portal. Discussed the need for her to have DVT of the left leg ruled out. Discussed we could trial diuretics to help with fluid accumulation if aDVT is ruled out. She reports she will contact her PCP this morning to try to arrange. She will keepus updated. Information/Education: patient/caller able to teach back The following references were used: provider Dr. Rubalcava Telephone Encounter - Stephanie Lowe R.N. - 05/24/2022 1:31 PM CDT Reason for Review: Creatinine of 2.1, previously 1.9 (05/15). Patient sent blood pressures for review in portal message. Denies UTI symptoms or diarrhea. She is reporting edema in her left lower extremity. Swelling is greater than the right, redness not associated with it. She is keeping it elevated when at rest. Patient sent pictures for reference. She reports she is likely not drinking enough as she was worried about fluids increasing the swelling in her leg. 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) for Labs: Recent Labs 05/22/22 1003 05/15/22 1010 05/08/22 1050 05/08/22 1000 04/28/22 1143 04/25/22 0812 04/21/22 0745 04/07/22 0626 04/06/22 2349 TACROLIMUS -- -- 8.1 8.1 < > -- < > 11.7 < > -- HGB 10.2 L < > 10.0 L -- 9.7 L < > 10.1 L < > 10.7 L HCT 33.4 < > 32.2 L -- 32.8 L < > 32.6 L < > 33.4 L PLT 135 L < > 170 -- 134 L < > 167 < > 169 WBC 6.01 < > 8.43 -- 6.2 < > 9.2 < > 7.6 NEUTROPHILS 3.88 < > 6.04 -- 5.53 < > 7.25 H < > 6.77 H NA -- -- -- -- 141 < > 141 < > 133 L KPLASMA -- -- -- -- -- -- -- -- 4.7 EXTK 4.0 < > 3.4 L -- -- -- -- -- -- KSERUM -- -- -- -- 5.0 < > 2.9 L < > -- BICARB -- -- -- -- 16 L < > 25 < > 22 CREATININE 2.1 H < > 2.0 H -- 2.25 H < > 3.75 H < > 6.04 H LABPHOS 3.5 < > 2.8 -- 1.7 L < > 3.2 < > -- CALCIUM -- -- -- -- 9.5 < > 9.9 < > 8.5 L MG 2.0 < > 1.8 -- 1.3 L < > -- < > -- GLUCOSE 124 H < > 226 H -- 213 H < > 159 H < > 144 H ALKPHOS -- -- -- -- 154 H -- 100 < > -- ALT -- -- -- -- 19 -- 10 < > -- AST -- -- -- -- 18 -- 12 < > -- MYCOPHENOLIC -- -- -- -- -- -- 6.3 H -- -- < > = values in this interval not displayed. Serologies: Recent Labs 04/21/22 0745 [id number] Undetected Lab Results Component Value Date BAMBI 192 (H) 08/29/2016 Immunosuppression Goal Range: 6-8 Current Lab Frequency: weekly Please advise on any changes or recommendations. Thanks, Jesika Lowe R.N. *All labs are now found in [facility] - Flowsheets. For further review of labs, please review there or under Synopsis* documented in 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 Plan of Treatment Upcoming Encounters Date Type Specialty Care Team Description 06/01/2022 Telemedicine Pharmacy An Nicholas APRN, C.N.P., D.N.P., M.S.N. [address] [place] [address] [phone] (Wo rk) 07/31/2022 Lab Laboratory Medicine Tony Rubalcava M. B., Ch.B., M.D. [address] [place] [address] [phone] (Wo behzad) 07/31/2022 Lab Laboratory Medicine Tony Rubalcava M. B., Ch.B., M.D. [address] [place] [address] [phone] (Wo behzad) 07/31/2022 Office Visit Transplant Tony Rubalcava M.B., Ch.B., M.D. [address] [place] [address] [phone] (Wo behzad) 07/31/2022 Appointment Radiology Tony Rubalcava M.B., Ch.B., Mukund [address] [place] [address] [phone] (Nicolas wen) 08/01/2022 Office Visit Transplant Tony Rubalcava M.B., Sydnie, Mukund [address] [place] [address] [phone] (Nicolas wen) 08/01/2022 Clinical Support Transplant Tony Rubalcava M.B., Sydnie, Mukund [address] [place] [address] [phone] (Nicolas wen) documented as of 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 Visit Diagnoses Not on filedocumented in 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 Additional Health Concerns Assessment Noted Time PHQ-9 Depression Total Score: 3 04/07/2021 9:37 AM CDT documented as of 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 Care Teams Utility Driver Relationship Specialty Start Date End Date Elsewhere, Pcp PCP - General 09/17/19 [facility] External Provider Laboratory Medicine 04/25/22 documented as of 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
--- OUTSIDE RECORDS SUMMARY | 2022-05-25 12:58 | XMS_ITS | Encounter Summary ---
:1960 Author Organization [facility] Address [address] [place] [address] Care Team Providers Name Role Phone Elsewhere, Pcp Primary Care Provider Unavailable Reason for Referral Medication Prior Authorization - Closed Specialty Diagnoses / Procedures Referred By Contact Refer red To Contact Diagnoses Immunodeficiency (HCC) Hypophosphatemia Complication Kidney Transplant (HCC) Jeovanny Mcdonald APRN, C.NJohan., M.S.N. [address] [place] [phone] Referral ID Status Reason Start Date Expiration Date Visits Requ ested Visits Authorized [id number] Closed 1 1 Reason for Visit Reason Comments Med Refill Encounter Details Date Type Department Care Team Description 05/02/2022 [facility] [place], Kr luz Moses R.N., Med Refill Transplantation and Clinical C.C .T.C. Regeneration in [place], [address] [place], [place] [address] [place] [phone] [place] [address] [phone] Social History Tobacco Use Types Packs/Day Years [...] 12/23/2021 relatives? How often do you attend mu-ism or judaism 1 to 4 times per year 12/23/2021 services? Do you belong to any clubs or organizations such No 12/23/2021 as mu-ism groups, unions, fraternal or athletic groups, or [...] An Nicholas APRN, C.N.P., D.N.P., M.S.N. [address] [place] [phone] (Nicolas wen) 07/31/2022 Lab Laboratory Medicine Tony Rubalcava M. B., Ch.BDavi, M.D. [address] [place] [address] [phone] (Nicolas wen) 07/31/2022 Lab Laboratory Medicine Tony Rubalcava M. B., Sydnie, Mukund [address] [place] [address] [phone] (Wo rk) 07/31/2022 Office Visit Transplant Tony Rubalcava M.B., Sydnie, Mukund [address] [place] [address] [phone] (Wo rk) 07/31/2022 Appointment Radiology Tony Rubalcava M.B., Sydnie, Mukund [address] [place] [address] [phone] (Wo rk) 08/01/2022 Office Visit Transplant Tony Rubalcava M.B., Sydnie, Mukund [address] [place] [address] [phone] (Wo rk) 08/01/2022 Clinical Support Transplant Tony Rubalcava M.B., Sydnie, Mukund [address] [place] [address] [phone] (Wo rk) documented as of 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 Visit Diagnoses Diagnosis Immunodeficiency (HCC) - Primary Hypomagnesemia Hypophosphatemia Complication Kidney Transplant (HCC) documented in 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 Additional Health Concerns Assessment Noted Time PHQ-9 Depression Total Score: 3 04/07/2021 9:37 AM CDT documented as of 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 Care Teams Thermite Bomb Loader Relationship Specialty Start Date End Date Elsewhere, Pcp PCP - General 09/17/19 [facility] External Provider Laboratory Medicine 04/25/22 documented as of 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
--- OUTSIDE RECORDS SUMMARY | 2022-05-25 12:58 | XMS_ITS | Encounter Summary ---
:1960 Author Organization [facility] Address [address] [place] [address] Care Team Providers Name Role Phone Elsewhere, Pcp Primary Care Provider Unavailable Encounter Details Date Type Department Care Team Description 05/01/2022 Clinical Communication Beatrice Walls [facility] M, P.A.-C., M.S. Transplantation and [address] [place] [address] [facility] [address] [place] [address] [place], [place] (Work) [address] [phone] Social History Tobacco Use Types Packs/Day Years [...] 12/23/2021 relatives? How often do you attend advent or episcopalian 1 to 4 times per year 12/23/2021 services? Do you belong to any clubs or organizations such No 12/23/2021 as advent groups, unions, fraternal or athletic groups, or [...] Encounter - Charity Gutiérrez R.N., C.C.T.C. - 05/02/2022 10:20 AM CDT Sent over all of her refills with the diagnosis codes written on the rx Telephone Encounter - Robbin Vargas - 05/01/2022 4:18 PM CDT [facility] called in needing a diagnosis for the potassium phosphate-sodium tablet. Please call back at . Thank you! documented in 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 Plan of Treatment Upcoming Encounters Date Type Specialty Care Team Description 06/01/2022 Telemedicine Pharmacy An Nicholas, CHRISTOPHER, C.N.P., D.N.P., M.S.N. [address] [place], [place] 55 [phone] (Wo rk) 07/31/2022 Lab Laboratory Medicine Tony Rubalcava M. B., Sydnie, Mukund [address] [place] [address] [phone] (Wo rk) 07/31/2022 Lab Laboratory Medicine Tony Rubalcava M. B., Sydnie, Mukund [address] [place] [address] [phone] (Wo rk) 07/31/2022 Office Visit Transplant Tony Rubalcava M.B., Sydnie, Mukund [address] [place] [address] [phone] (Wo rk) 07/31/2022 Appointment Radiology Tony Rubalcava M.B., Sydnie, Mukund [address] [place] [address] [phone] (Wo rk) 08/01/2022 Office Visit Transplant Tony Rubalcava M.B., Sydnie, MDebra [address] [place] [address] [phone] (Wo rk) 08/01/2022 Clinical Support Transplant Tony Rubalcava M.B., Sydnie, MDebra [address] [place] [address] [phone] (Wo rk) documented as of 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 Visit Diagnoses Not on filedocumented in 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 Additional Health Concerns Assessment Noted Time PHQ-9 Depression Total Score: 3 04/07/2021 9:37 AM CDT documented as of 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 Care Teams Textile Machinery Instructor Relationship Specialty Start Date End Date Elsewhere, Pcp PCP - General 09/17/19 [facility] External Provider Laboratory Medicine 04/25/22 documented as of 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
--- OUTSIDE RECORDS SUMMARY | 2022-05-25 12:58 | XMS_ITS | Encounter Summary ---
:1960 Author Organization [facility] Address [address] [place] [address] Care Team Providers Name Role Phone Elsewhere, Pcp Primary Care Provider Unavailable Encounter Details Date Type Department Care Team Description 05/08/2022 Orders Only Ata Vega [facility] External, Or [facility] for Transplantation and Mukund Lyons Clinical Regeneration in [place], [place] [address] [place] [address] Social History Tobacco Use Types Packs/Day [...] 12/23/2021 relatives? How often do you attend alevism or amish 1 to 4 times per year 12/23/2021 services? Do you belong to any clubs or organizations such No 12/23/2021 as alevism groups, unions, fraternal or athletic groups, or [...] place to sleep or slept in a skilled nursing (including now)? Education Answer Date Recorded What [...] An Nicholas APRN, C.NDaviP., D.N.P., M.S.N. [address] [place] [address] 55 [phone] (Nicolas wen) 07/31/2022 Lab Laboratory Medicine Tony Rubalcava M. B., ChBurke, MElvia. [address] [place] [address] 55 [phone] (Nicolas wen) 07/31/2022 Lab Laboratory Medicine Tony Rubalcava M. B., ChBurke, MElvia. [address] [place] [address] 55 [phone] (Nicolas wen) 07/31/2022 Office Visit Transplant Tony Rubalcava M.B., ChDaviBDavi, MDebra [address] [place] [address] [phone] ( behzad) 07/31/2022 Appointment Radiology Tony Rubalcava M.B., ChBurke, MElvia. [address] [place] [address] 55 [phone] (Nicolas wen) 08/01/2022 Office Visit Transplant Tony Rubalcava M.B., Mukund Otoole [address] [place], [place] [phone] (Wo rk) 08/01/2022 Clinical Support Transplant Tony Rubalcava M.B., Mukund Otoole [address] [place], [place] [phone] (Nicolas wen) documented as of 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 Procedures Procedure Name Priority Date/Time Associated Comments Diagnosis CBC WITH Routine 05/08/2022 10:50 AM Results for this DIFFERENTIAL, B CDT procedure ar e in the results section. POTASSIUM, S/P Routine 05/08/2022 10:50 AM Result s for this CDT procedure are i n the results section. PHOSPHORUS Routine 05/08/2022 10:50 AM Results for this (INORGANIC), S CDT procedure are in the results section. MAGNESIUM, S Routine 05/08/2022 10:50 AM Results for this CDT procedure are i n the results section. GLUCOSE, RANDOM, S/P Routine 05/08/2022 10:50 AM Results for this CDT procedure are i n the results section. CREATININE WITH Routine 05/08/2022 10:50 AM Resul ts for this EGFR, S/P CDT procedure are i n the results section. documented in 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 Results (ABNORMAL) CBC with Differential, Blood (05/08/2022 10:50 AM CDT) [facility] gist Method Time Signature EXT Leukocytes 8.43 4.50 - SCANNED 11.00 K/uL REPORT EXT RBC 3.33 (L) 4.00 - SCANNED 5.20 m/uL REPORT EXT Hemoglobin 10.0 (L) 12.0 - SCANNED 16.0 gm/dL REPORT EXT Hematocrit 32.2 (L) 33.0 - SCANNED 51.0 % REPORT EXT MCV 97 60 - 100 SCANNED fL REPORT EXT Platelet 170 140 - 440 SCANNED Count K/uL REPORT EXT RDW 16.5 (H) 11.5 - SCANNED 15.5 % REPORT EXT Neutrophils 6.04 1.7 - 7.0 SCANNED K/uL REPORT EXT Lymphocytes 1.20 0.90 - SCANNED 2.90 K/uL REPORT EXT Monocytes 0.90 0.00 - SCANNED 0.90 K/UL REPORT EXT Eosinophils 0.03 0.00 - SCANNED 0.50 K/uL REPORT EXT Basophils 0.04 0.00 - SCANNED 0.30 K/uL REPORT Specimen (Source) Anatomical Collection Method Collection Time Re ceived Time Location / / Volume Laterality 05/08/2022 10:50 AM CDT Narrative [facility] - 05/10/2022 11:11 AM CDT Source result document attached to Order Number [id number] ([id number]) dated 05/08/2022. External results verified in Extract by Karoline Farah on 05/10/2022 at 11:02 AM. Ordering Provider External Mukund LAB BLOOD ADD-ON Performing Organization Address City/[facility]/ZIP Code Phon e Number [facility] LOCATION GROUP SCANNED REPORT [facility] NA GROUP Magnesium (05/08/2022 10:50 AM CDT) P athologist Signature EXT Magnesium 1.8 1.5 - 2.6 SCANNED REPORT mg/dL Specimen (Source) Anatomical Collection Method Collection Time Re ceived Time Location / / Volume Laterality 05/08/2022 10:50 AM CDT Narrative [facility] - 05/10/2022 11:11 AM CDT Source result document attached to Order Number [id number] ([id number]) dated 05/08/2022. External results verified in Extract by Karoline Farah on 05/10/2022 at 11:02 AM. Ordering Provider External Mukund LAB BLOOD ADD-ON Performing Organization Address City/State/ZIP Code Phon e Number [facility] LOCATION GROUP SCANNED REPORT [facility] LOCATION NA GROUP Phosphorus Inorganic (05/08/2022 10:50 AM CDT) P athologist Signature EXT Phosphorus 2.8 2.5 - 4.5 SCANNED REPORT (Inorganic), S mg/dL Specimen (Source) Anatomical Collection Method Collection Time Re ceived Time Location / / Volume Laterality 05/08/2022 10:50 AM CDT Narrative [facility] - 05/10/2022 11:11 AM CDT Source result document attached to Order Number [id number] ([id number]) dated 05/08/2022. External results verified in Extract by Karoline Farah on 05/10/2022 at 11:02 AM. Ordering Provider Ferny Duval LAB BLOOD ADD-ON Performing Organization Address City/[facility]/ZIP Code Phon e Number [facility] SCANNED [facility]PORT [facility] (ABNORMAL) Glucose, Random (05/08/2022 10:50 AM CDT) P athologist Signature EXT Glucose 226 (H) 60 - 115 SCANNED REPORT mg/dL Specimen (Source) Anatomical Collection Method Collection Time Re ceived Time Location / / Volume Laterality 05/08/2022 10:50 AM CDT Narrative [facility] LOCATION GROUP - 05/10/2022 11:11 AM CDT Source result document attached to Order Number [id number] ([id number]) dated 05/08/2022. External results verified in Extract by Karoline Farah on 05/10/2022 at 11:02 AM. Ordering Provider Ferny Duval LAB BLOOD TROPONIN Performing Organization Address [facility]/ZIP Code Phon e Number [facility] SCANNED REPORT [facility] GROUP (ABNORMAL) Creatinine with Estimated GFR (05/08/2022 10:50 AM CDT) P athologist Signature EXT Creatinine 2.0 (H) 0.5 - 1.5 SCANNED mg/dL REPORT Specimen (Source) Anatomical Collection Method Collection Time Re ceived Time Location / / Volume Laterality 05/08/2022 10:50 AM CDT Narrative [facility] - 05/10/2022 11:11 AM CDT Source result document attached to Order Number [id number] ([id number]) dated 05/08/2022. External results verified in Extract by Karoline Farah on 05/10/2022 at 11:02 AM. Ordering Provider External MDebra LAB BLOOD ADD-ON Performing Organization Address City/State/ZIP Code Phon e Number [facility] SCANNED REPORT [facility] NA GROUP (ABNORMAL) Potassium (05/08/2022 10:50 AM CDT) P athologist Signature EXT Potassium 3.4 (L) 3.6 - 5.1 SCANNED REPORT mmol/L Specimen (Source) Anatomical Collection Method Collection Time Re ceived Time Location / / Volume Laterality 05/08/2022 10:50 AM CDT Narrative SCANNED REPORT - 05/10/2022 11:11 AM CDT This result has an attachment that is no t available. External results verified in Extract by Karoline Farah on 05/10/2022 at 11:02 AM. Ordering Provider External Mukund LAB BLOOD ADD-ON Performing Organization Address City/State/ZIP Code Phon e Number SCANNED REPORT documented in 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 Visit Diagnoses Not on filedocumented in 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 Additional Health Concerns Assessment Noted Time PHQ-9 Depression Total Score: 3 04/07/2021 9:37 AM CDT documented as of 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 Care Teams Sausage Meat Trimmer Relationship Specialty Start Date End Date Elsewhere, Pcp PCP - General 09/17/19 [facility] External Provider Laboratory Medicine 04/25/22 documented as of 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
--- OUTSIDE RECORDS SUMMARY | 2022-05-25 12:58 | XMS_ITS | Encounter Summary ---
:1960 Author Organization [facility] Address [address] [place] [address] Care Team Providers Name Role Phone Elsewhere, Pcp Primary Care Provider Unavailable Reason for Visit Reason Comments Med Refill Encounter Details Date Type Department Care Team Description 05/02[facility]20[facility] Jeovanny Barron APRN, Med Refill Transplantation and Clinical C.N .P., M.S.N. Regeneration in [place], [address] [place], [place] [address] [facility] [address] [place] [address] [phone] Social History Tobacco Use Types Packs/Day Years [...] 12/23/2021 relatives? How often do you attend oriental orthodox or jehovah's witness 1 to 4 times per year 12/23/2021 services? Do you belong to any clubs or organizations such No 12/23/2021 as oriental orthodox groups, unions, fraternal or athletic groups, or [...] Encounter - Alexa Kent R.N. - 05/03/2022 2:33 PM CDT Duplicate Rx documented in 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 Plan of Treatment Upcoming Encounters Date Type Specialty Care Team Description 06/01/2022 Telemedicine Pharmacy An Nicholas APRN C.N.P., D.N.P., M.S.N. [address] [place] [address] 55 [phone] (Nicolas wen) 07/31/2022 Lab Laboratory Medicine Tony Rubalcava M. B., Ch.B., M.D. [address] [place] [address] 55 [phone] (Nicolas wen) 07/31/2022 Lab Laboratory Medicine Tony Rubalcava M. B., Ch.B., M.D. [address] [place] [address] 55 [phone] (Wo rk) 07/31/2022 Office Visit Transplant Tony Rubalcava M.B., Sydnie, Mukund [address] [place] [address] [phone] (Wo rk) 07/31/2022 Appointment Radiology Tony Rubalcava M.B., Sydnie, Mukund [address] [place] [address] 55 [phone] (Wo rk) 08/01/2022 Office Visit Transplant Tony Rubalcava M.B., Sydnie, Mukund [address] [place] [address] 55 [phone] (Wo rk) 08/01/2022 Clinical Support Transplant Tony Rubalcava M.B., Sydnie, Mukund [address] [place] [address] 55 [phone] (Wo rk) documented as of 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 Visit Diagnoses Diagnosis Immunodeficiency (HCC) Complication Kidney Transplant (HCC) documented in 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 Additional Health Concerns Assessment Noted Time PHQ-9 Depression Total Score: 3 04/07/2021 9:37 AM CDT documented as of 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 Care Teams Competitive Intelligence Analyst Relationship Specialty Start Date End Date Elsewhere, Pcp PCP - General 09/17/19 [facility] External Provider Laboratory Medicine 04/25/22 documented as of 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
--- OUTSIDE RECORDS SUMMARY | 2022-05-25 12:58 | XMS_ITS | Encounter Summary ---
:1960 Author Organization [facility] Address [address] [place] [address] Care Team Providers Name Role Phone Elsewhere, Pcp Primary Care Provider Unavailable Reason for Visit Reason Comments Med Refill Encounter Details Date Type Department Care Team Description 05/05/2022 [facility] [place] Kr luz Moses R.N., Med Refill Transplantation and Clinical C.C .T.C. Regeneration in [place], [address] [place], [place] [address] [facility] [address] [place] [address] [phone] (work) [phone] Social History Tobacco Use Types Packs/Day Years [...] 12/23/2021 relatives? How often do you attend restorationism or hinduism 1 to 4 times per year 12/23/2021 services? Do you belong to any clubs or organizations such No 12/23/2021 as restorationism groups, unions, fraternal or athletic groups, or [...] place to sleep or slept in a alf (including now)? Education Answer Date Recorded What [...] An Nicholas APRN, C.N.P., D.N.P., M.S.N. [address] [place] [address] 55 [phone] (Nicolas wen) 07/31/2022 Lab Laboratory Medicine Tony Rubalcava M. B., ChDaviBDavi, M.D. [address] [place] [address] 55 [phone] (Nicolas wen) 07/31/2022 Lab Laboratory Medicine Tony Rubalcava M. B., Ch.BDavi, M.D. [address] [place] [address] 55 [phone] (Nicolas wen) 07/31/2022 Office Visit Transplant Tony Rubalcava M.B., ChDaviBDavi, M.D. [address] [place] [address] 55 [phone] (Nicolas wen) 07/31/2022 Appointment Radiology Tony Rubalcava M.B., Sydnie, Mukund [address] [place] [address] 55 [phone] (Wo rk) 08/01/2022 Office Visit Transplant Tony Rubalcava M.B., Mukund Otoole [address] [place] [address] 55 [phone] (Wo behzad) 08/01/2022 Clinical Support Transplant Tony Rubalcava M.B., Mukund Otoole [address] [place] [address] 55 [phone] (Nicolas wen) documented as of 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 Visit Diagnoses Diagnosis Transplant Renal (HCC) documented in 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 Additional Health Concerns Assessment Noted Time PHQ-9 Depression Total Score: 3 04/07/2021 9:37 AM CDT documented as of 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 Care Teams Greeting Card Writer Relationship Specialty Start Date End Date Elsewhere, Pcp PCP - General 09/17/19 [facility] External Provider Laboratory Medicine 04/25/22 documented as of 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
--- OUTSIDE RECORDS SUMMARY | 2022-05-25 12:58 | XMS_ITS | Encounter Summary ---
:1960 Author Organization [facility] Address [address] [place] [address] Care Team Providers Name Role Phone Elsewhere, Pcp Primary Care Provider Unavailable Reason for Visit Reason Comments Warm Handoff Encounter Details Date Type Department Care Team Description 05/02/2022 Clinical Communication Ata Mcguire, Warm Handoff Center for Dewey Peck and Camron C.C.T. C. Clinical Regeneration in [address] [place] [address] [place] [address] [place] [address] [phone] Social History Tobacco Use Types Packs/Day Years [...] 12/23/2021 relatives? How often do you attend roman catholic or episcopalian 1 to 4 times per year 12/23/2021 services? Do you belong to any clubs or organizations such No 12/23/2021 as roman catholic groups, unions, fraternal or athletic groups, or [...] 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 Miscellaneous Notes Telephone Encounter - Sandra Peterson R.N., C.C.T.C. - 05/02/2022 11:04 AM CDT Left a message for Elena Morataya's office that patient had received a kidney transplant and has been discharged from clinic. Records will be sent and they can call us with questions. documented in 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 Plan of Treatment Upcoming Encounters Date Type Specialty Care Team Description 06/01/2022 Telemedicine Pharmacy An Nicholas APRN, C.N.P., D.N.P., M.S.N. [address] [place] [address] 55 [phone] (Nicolas wen) 07/31/2022 Lab Laboratory Medicine Tony Rubalcava M. B., Ch.Maurice, M.D. [address] [place] [address] 55 [phone] (Nicolas wen) 07/31/2022 Lab Laboratory Medicine Tony Rubalcava M. B., Sydnie, Mukund [address] [place] [address] [phone] (Wo rk) 07/31/2022 Office Visit Transplant Tony Rubalcava M.B., Sydnie, Mukund [address] [place] [address] [phone] (Wo rk) 07/31/2022 Appointment Radiology Tony Rubalcava M.B., Sydnie, Mukund [address] [place] [address] 55 [phone] (Wo rk) 08/01/2022 Office Visit Transplant Tony Rubalcava M.B., Sydnie, Mukund [address] [place] [address] 55 [phone] (Wo rk) 08/01/2022 Clinical Support Transplant Tony Rubalcava M.B., Sydnie, Mukund [address] [place] [address] 55 [phone] (Wo rk) documented as of 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 Visit Diagnoses Not on filedocumented in 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 Additional Health Concerns Assessment Noted Time PHQ-9 Depression Total Score: 3 04/07/2021 9:37 AM CDT documented as of 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 Care Teams Crown Ceramist Relationship Specialty Start Date End Date Elsewhere, Pcp PCP - General 09/17/19 [facility] External Provider Laboratory Medicine 04/25/22 documented as of 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
--- OUTSIDE RECORDS SUMMARY | 2022-05-25 12:58 | XMS_ITS | Encounter Summary ---
:1960 Author Organization [facility] Address [address] [place] [address] Care Team Providers Name Role Phone Elsewhere, Pcp Primary Care Provider Unavailable Encounter Details Date Type Department Care Team Description 05/22/2022 Orders Only Ata Vega [facility] External, Or roman for Transplantation and Mukund Lyons Clinical Regeneration in [place], [place] [address] [place] [address] Social History Tobacco Use Types Packs/Day [...] How often do you attend confucianism or pentecostalism 1 to 4 times per year 12/23/2021 [...] An Nicholas APRN, C.NDaviP., D.N.P., M.S.N. [address] [place] [address] 55 [phone] (Nicolas wen) 07/31/2022 Lab Laboratory Medicine Tony Rubalcava M. B., ChBurke, MElvia. [address] [place] [address] 55 [phone] (Nicolas wen) 07/31/2022 Lab Laboratory Medicine Tony Rubalcava M. B., ChBurke, MElvia. [address] [place] [address] 55 [phone] (Nicolas wen) 07/31/2022 Office Visit Transplant Tony Rubalcava M.B., ChDaviBDavi, MDebra [address] [place] [address] 55 [phone] ( behzad) 07/31/2022 Appointment Radiology Tony Rubalcava M.B., ChBurke, MElvia. [address] [place] [address] 55 [phone] (Nicolas wen) 08/01/2022 Office Visit Transplant Tony Rubalcava M.B., Mukund Otoole [address] [place], [place] 55 [phone] (Wo rk) 08/01/2022 Clinical Support Transplant Tony Rubalcava M.B., Mukund Otoole [address] [place], [place] 55 [phone] (Nicolas wen) documented as of 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 Procedures Procedure Name Priority Date/Time Associated Diagnosis Comme nts CBC WITH Routine 05/22/2022 10:03 AM Results for this DIFFERENTIAL, B CDT procedure ar e in the results section. documented in 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 Results (ABNORMAL) CBC with Differential, Blood (05/22/2022 10:03 AM CDT) [facility] gist Method Time Signature EXT Leukocytes 6.01 4.50 - [place] 11.00 [facility] K/uL LABORATORY EXT RBC 3.37 (L) 4.00 - [place] 5.20 m/uL [facility] LABORATORY EXT Hemoglobin 10.2 (L) 12.0 - [place] 16.0 [facility] gm/dL LABORATORY EXT Hematocrit 33.4 33.0 - [place] 51.0 % [facility] LABORATORY EXT MCV 99 80 - 100 [facility] LABORATORY EXT Platelet 135 (L) 140 - 440 [place] Count K/[facility] LABORATORY EXT RDW 15.8 (H) 11.5 [facility] 15.5 % [facility] LABORATORY EXT Neutrophils 3.88 1.7 - 7.0 [facility] LABORATORY EXT Lymphocytes 1.45 0.90 - [place] 2.90 /uL [facility] LABORATORY EXT Monocytes 0.50 0.00 - [place] 0.90 K/UL [facility] LABORATORY EXT Eosinophils 0.10 0.00 - [place] 0.50 K/uL [facility] LABOR[facility] EXT Basophils 0.05 0.00 - [place] 0.30 /uL [facility] Specimen (Source) Anatomical Collection Method Collection Time Re ceived Time Location / / Volume Laterality 05/22/2022 10:03 AM CDT Narrative [facility] - 022 10:26 AM CDT This result has an attachment that is no t available. External results verified in Extract by Radha Chaidez on 05/23/2022 at 10:23 AM. Ordering Provider External M.DDavi LAB BLOOD ADD-ON Performing Organization Address City/State/ZIP Code Phon e Number [facility] [address] [place] [phone] documented in 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 Visit Diagnoses Not on filedocumented in 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 Additional Health Concerns Assessment Noted Time PHQ-9 Depression Total Score: 3 04/07/2021 9:37 AM CDT documented as of 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 Care Teams Label Remover Relationship Specialty Start Date End Date Elsewhere, Pcp PCP - General 09/17/19 [facility] External Provider Laboratory Medicine 04/25/22 documented as of 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
--- OUTSIDE RECORDS SUMMARY | 2022-05-25 12:58 | XMS_ITS | Encounter Summary ---
:1960 Author Organization [facility] Address [address] [place] [id number] Care Team Providers Name Role Phone Elsewhere, Pcp Primary Care Provider Unavailable Reason for Visit Reason Comments Tacrolimus Adjustment Protocol Encounter Details Date Type Department Care Team Description 05/23/2022 Clinical [facility] for A, R.N., Adjustment Transplantation and C.C.T.C. Protocol Clinical Regeneration [address] [facility] in [facility] [address] [place] [address] [place], [place] (Work) [phone] Social History Tobacco Use Types Packs/Day Years [...] 12/23/2021 relatives? How often do you attend rastafarian or shinto 1 to 4 times per year 12/23/2021 services? Do you belong to any clubs or organizations such No 12/23/2021 as rastafarian groups, unions, fraternal or athletic groups, or [...] place to sleep or slept in a group home (including now)? Education Answer Date Recorded What [...] An Nicholas APRN, C.N.P., D.N.P., M.S.N. [address] [place] [address] [phone] (Nicolas wen) 07/31/2022 Lab Laboratory Medicine Tony Rubalcava M. B., ChDaviBDavi, M.D. [address] [place] [address] [phone] (Nicolas wen) 07/31/2022 Lab Laboratory Medicine Tony Rubalcava M. B., ChDaviBDavi, M.D. [address] [place] [address] [phone] (Nicolas wen) 07/31/2022 Office Visit Transplant Tony Rubalcava M.B., ChBurke, MElvia. [address] [place] [address] [phone] (Nicolas wen) 07/31/2022 Appointment Radiology Tony Rubalcava M.B., Mukund Otoole [address] [place] [address] [phone] (Wo rk) 08/01/2022 Office Visit Transplant Tony Rubalcava M.B., Mukund Otoole [address] [place] [address] [phone] (Wo behzad) 08/01/2022 Clinical Support Transplant Tony Rubalcava M.B., Mukund Otoole [address] [place] [address] [phone] (Nicolas wen) documented as of 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 Visit Diagnoses Not on filedocumented in 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 Additional Health Concerns Assessment Noted Time PHQ-9 Depression Total Score: 3 04/07/2021 9:37 AM CDT documented as of 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 Care Teams Instrument And Control Technician Relationship Specialty Start Date End Date Elsewhere, Pcp PCP - General 09/17/19 [facility] External Provider Laboratory Medicine 04/25/22 documented as of 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
--- OUTSIDE RECORDS SUMMARY | 2022-05-25 12:58 | XMS_ITS | Encounter Summary ---
:1960 Author Organization [facility] Address [address] [place] [address] Care Team Providers Name Role Phone Elsewhere, Pcp Primary Care Provider Unavailable Reason for Visit Reason Comments Tacrolimus Adjustment Protocol Encounter Details Date Type Department Care Team Description 05/11/2022 Clinical [facility] Pretty A, Adjustment Transplantation and M.S.N., R.N. Protocol Clinical Regeneration [phone] [facility] [address] [place] [address] Social History Tobacco Use Types Packs/Day Years [...] 12/23/2021 relatives? How often do you attend sabianism or congregational 1 to 4 times per year 12/23/2021 services? Do you belong to any clubs or organizations such No 12/23/2021 as sabianism groups, unions, fraternal or athletic groups, or [...] place to sleep or slept in a senior living (including now)? Education Answer Date Recorded What is the highest level of school you have GED or equivale nt 01/26/2019 completed or the highest degree you have received? Sex Assigned at Date Recorded Female 12/23/2021 4:18 AM CDT documented as of 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 Miscellaneous Notes Telephone Encounter - Pretty Sumner M.S.N., R.N. - 05/11/2022 10:56 AM CDT Tacrolimus 8.1 level within goal range of 6-8 (+/-0.3), per Tacrolimus Adjustment Protocol no dose change recommended. Current Tacrolimus dose 3 mg twice a day. Other lab results received and reviewed,stable trends, continue monitoring every week. documented in 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 Plan of Treatment Upcoming Encounters Date Type Specialty Care Team Description 06/01/2022 Telemedicine Pharmacy An Nicholas APRN, C.N.P., D.N.P., M.S.N. [address] [place] [address] [phone] (Nicolas wen) 07/31/2022 Lab Laboratory Medicine Tony Rubalcava M. B., Ch.BDavi, M.Michelle. [address] [place] [address] 55 [phone] (Nicolas wen) 07/31/2022 Lab Laboratory Medicine Tony Rubalcava M. B., Sydnie, Mukund [address] [place] [address] [phone] (Wo rk) 07/31/2022 Office Visit Transplant Tony Rubalcava M.B., Sydnie, uMkund [address] [place] [address] [phone] (Wo rk) 07/31/2022 Appointment Radiology Tony Rubalcava M.B., Sydnie, Mukund [address] [place] [address] [phone] (Wo rk) 08/01/2022 Office Visit Transplant Tony Rubalcava M.B., Sydnie, Mukund [address] [place] [address] [phone] (Wo rk) 08/01/2022 Clinical Support Transplant Tony Rubalcava M.B., Sydnie, MDebra [address] [place] [address] [phone] (Wo rk) documented as of 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 Visit Diagnoses Not on filedocumented in 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 Additional Health Concerns Assessment Noted Time PHQ-9 Depression Total Score: 3 04/07/2021 9:37 AM CDT documented as of 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 Care Teams Assembler Fishing Floats Relationship Specialty Start Date End Date Elsewhere, Pcp PCP - General 09/17/19 [facility] External Provider Laboratory Medicine 04/25/22 documented as of 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
--- OUTSIDE RECORDS SUMMARY | 2022-05-25 12:58 | XMS_ITS | Encounter Summary ---
:1960 Author Organization [facility] Address [address] [place] [address] Care Team Providers Name Role Phone Elsewhere, Pcp Primary Care Provider Unavailable Encounter Details Date Type Department Care Team Description 05/02/2022 Orders Only Pharmacy Prior Auth Grant Cedeno [phone] Social History Tobacco Use Types Packs/Day Years [...] 12/23/2021 relatives? How often do you attend catholic or pentecostalism 1 to 4 times per year 12/23/2021 services? Do you belong to any clubs or organizations such No 12/23/2021 as catholic groups, unions, fraternal or athletic groups, [...] An Nicholas APRN C.N.P., D.N.P., M.S.N. [address] [place] [address] [phone] (Nicolas wen) 07/31/2022 Lab Laboratory Medicine Tony Rubalcava M. B., ChDaviBDavi, M.D. [address] [place] [address] 55 [phone] (Nicolas wen) 07/31/2022 Lab Laboratory Medicine Tony Rubalcava M. B., ChDaviBDavi, M.D. [address] [place] [address] 55 [phone] (Nicolas wen) 07/31/2022 Office Visit Transplant Tony Rubalcava M.B., ChDaviBDavi, M.D. [address] [place] [address] [phone] (Nicolas wen) 07/31/2022 Appointment Radiology Tony Rubalcava M.B., ChDaviBDavi, M.D. [address] [place] [address] [phone] (Nicolas wen) 08/01/2022 Office Visit Transplant Tony Rubalcava M.B., Sydnie, Mukund [address] [place], [place] 55 [phone] (Nicolas wen) 08/01/2022 Clinical Support Transplant Tnoy Rubalcava M.B., Sydnie, Mukund [address] [place], [place] 55 [phone] (Nicolas wen) documented as of 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 Visit Diagnoses Not on filedocumented in 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 Additional Health Concerns Assessment Noted Time PHQ-9 Depression Total Score: 3 04/07/2021 9:37 AM CDT documented as of 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 Care Teams Home Health Lpn Relationship Specialty Start Date End Date Elsewhere, Pcp PCP - General 09/17/19 [facility] External Provider Laboratory Medicine 04/25/22 documented as of 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
--- OUTSIDE RECORDS SUMMARY | 2022-05-25 12:58 | XMS_ITS | Encounter Summary ---
:1960 Author Organization [facility] Address [address] [place] [address] Care Team Providers Name Role Phone Elsewhere, Pcp Primary Care Provider Unavailable Encounter Details Date Type Department Care Team Description 05/08/2022 Orders Only Ata Vega [facility] External, Or [facility] and Mukund Lyons Clinical Regeneration in [place], [place] [address] [place] [address] Social History Tobacco Use Types Packs/Day [...] 12/23/2021 relatives? How often do you attend sabianist or orthodox 1 to 4 times per year 12/23/2021 services? Do you belong to any clubs or organizations such No 12/23/2021 as sabianist groups, unions, fraternal or athletic groups, or [...] place to sleep or slept in a intermediate (including now)? Education Answer Date Recorded What [...] An Nicholas APRN, C.NDaviP., D.N.P., M.S.N. [address] [place] [address] 55 [phone] (Nicolas wen) 07/31/2022 Lab Laboratory Medicine Tony Rubalcava M. B., ChBurke, MElvai. [address] [place] [address] 55 [phone] (Nicolas wen) 07/31/2022 Lab Laboratory Medicine Tony Rubalcava M. B., ChBurke, MElvia. [address] [place] [address] 55 [phone] (Nciolas wen) 07/31/2022 Office Visit Transplant Tony Rubalcava M.B., ChDaviBDavi, MDebra [address] [place] [address] [phone] ( behzad) 07/31/2022 Appointment Radiology Tony Rubalcava M.B., ChBurke, MElvia. [address] [place] [address] 55 [phone] (Nicolas wen) 08/01/2022 Office Visit Transplant Tony Rubalcava M.B., Mukund Otoole [address] [place], [place] 55 [phone] (Wo rk) 08/01/2022 Clinical Support Transplant Tony Rubalcava M.B., Mukund Otoole [address] [place], [place] 55 [phone] (Nicolas rk) documented as of 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 Procedures Procedure Name Priority Date/Time Associated Comments Diagnosis HCV RNA DETECT/QUANT Routine 05/08/2022 10:50 AM Results for this CDT procedure are i n the results section. TACROLIMUS LEVEL, B Routine 05/08/2022 10:50 AM R esults for this CDT procedure are i n the results section. documented in 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 Results HCV RNA Detect / Quant, Serum (05/08/2022 10:50 AM CDT) Patholo gist Method Time Signature EXT HCV RNA Not Detected IU/mL Nuvosun Detect/Quantif Buru Buru, bright box Specimen (Source) Anatomical Collection Method Collection Time Re ceived Time Location / / Volume Laterality 05/08/2022 10:50 AM CDT Narrative [facility] - 05/15/2022 9:49 AM CDT Source result document attached to Order Number [id number] ([id number]) dated 05/08/2022. External results verified in Extract by Radha Mauricio on 05/15/2022 at 09:47 AM. Ordering Provider External MDaviDDavi LAB MICROBIOLOGY - BLO OD ORDERABLES Performing Organization Address City/State/ZIP Code Phon e Number [facility] [address] [place] [address] Tacrolimus, B (05/08/2022 10:50 AM CDT) P athologist Signature EXT Tacrolimus 8.1 ng/mL [facility] Specimen (Source) Anatomical Collection Method Collection Time Re ceived Time Location / / Volume Laterality 05/08/2022 10:50 AM CDT Narrative [facility] - 05/15/2022 9:49 AM CDT This result has an attachment that is no t available. External results verified in Extract by Radha Mauricio on 05/15/2022 at 09:44 AM. Ordering Provider External M.DDavi LAB BLOOD NON ADD-ON Performing Organization Address City/State/[facility] Code Phon e Number [facility] [address] [place] [address] documented in 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 Visit Diagnoses Not on filedocumented in 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 Additional Health Concerns Assessment Noted Time PHQ-9 Depression Total Score: 3 04/07/2021 9:37 AM CDT documented as of 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 Care Teams Target Worker Relationship Specialty Start Date End Date Elsewhere, Pcp PCP - General 09/17/19 [facility] External Provider Laboratory Medicine 04/25/22 documented as of 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
--- OUTSIDE RECORDS SUMMARY | 2022-05-25 12:58 | XMS_ITS | Encounter Summary ---
:1960 Author Organization [facility] Address [address] [place] [address] Care Team Providers Name Role Phone Elsewhere, Pcp Primary Care Provider Unavailable Encounter Details Date Type Department Care Team Description 05/08/2022 Orders Only Ata Vega [facility], [facility] and Mukund Lyons Clinical Regeneration in [place], [place] [address] [place] [address] Social History Tobacco Use Types Packs/Day [...] 12/23/2021 relatives? How often do you attend baptist or confucianism 1 to 4 times per year 12/23/2021 services? Do you belong to any clubs or organizations such No 12/23/2021 as baptist groups, unions, fraternal or athletic groups, or [...] An Nicholas APRN, C.NDaviP., D.N.P., M.S.N. [address] [place] [address] 55 [phone] (Nicolas wen) 07/31/2022 Lab Laboratory Medicine Tony Rubalcava M. B., ChBurke, MElvia. [address] [place] [address] 55 [phone] (Nicolas wen) 07/31/2022 Lab Laboratory Medicine Tony Rubalcava M. B., ChBurke, MElvia. [address] [place] [address] 55 [phone] (Nicolas wen) 07/31/2022 Office Visit Transplant Tony Rubalcava M.B., ChDaviBDavi, MDebra [address] [place] [address] 55 [phone] ( behzad) 07/31/2022 Appointment Radiology Tony Rubalcava M.B., ChBurke, MElvia. [address] [place] [address] 55 [phone] (Nicolas wen) 08/01/2022 Office Visit Transplant Tony Rubalcava M.B., Mukund Otoole [address] [place], [place] 55 [phone] (Wo rk) 08/01/2022 Clinical Support Transplant Tony Rubalcava M.B., Mukund Otoole [address] [place], [place] 55 [phone] (Wo rk) documented as of 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 Procedures Procedure Name Priority Date/Time Associated Comments Diagnosis TACROLIMUS LEVEL, B Routine 05/08/2022 10:50 AM R esults for this CDT procedure are i n the results section. documented in 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 Results Tacrolimus, B (05/08/2022 10:50 AM CDT) P athologist Signature EXT Tacrolimus 8.1 ng/mL [facility] Specimen (Source) Anatomical Collection Method Collection Time Re ceived Time Location / / Volume Laterality 05/08/2022 10:50 AM CDT Narrative [facility] - 05/11/2022 10:0 5 AM CDT This result has an attachment that is no t available. External results verified in Extract by Brittany Mcadams on 05/11/2022 at 10:02 AM. Ordering Provider External M.DDavi LAB BLOOD NON ADD-ON Performing Organization Address City/State/ZIP Code Phon e Number [facility] [address] [place] [address] documented in 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 Visit Diagnoses Not on filedocumented in 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 Additional Health Concerns Assessment Noted Time PHQ-9 Depression Total Score: 3 04/07/2021 9:37 AM CDT documented as of 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 Care Teams Lung Gun Operator Relationship Specialty Start Date End Date Elsewhere, Pcp PCP - General 09/17/19 [facility] External Provider Laboratory Medicine 04/25/22 documented as of 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
--- OUTSIDE RECORDS SUMMARY | 2022-05-25 12:58 | XMS_ITS | Encounter Summary ---
:1960 Author Organization [facility] Address [address] [place] [address] Care Team Providers Name Role Phone Elsewhere, Pcp Primary Care Provider Unavailable Encounter Details Date Type Department Care Team Description 05/15/2022 Orders Only Ata Vega [facility] External, [facility] Mukund Lyons Clinical Regeneration in [place], [place] [address] [place] [address] Social History Tobacco Use Types Packs/Day [...] 12/23/2021 relatives? How often do you attend hinduism or mosque 1 to 4 times per year 12/23/2021 services? Do you belong to any clubs or organizations such No 12/23/2021 as hinduism groups, unions, fraternal or athletic groups, or [...] An Nicholas APRN, C.NDaviP., D.N.P., M.S.N. [address] [place] [address] 55 [phone] (Nicolas wen) 07/31/2022 Lab Laboratory Medicine Tony Rubalcava M. B., ChBurke, MElvia. [address] [place] [address] 55 [phone] (Nicolas wen) 07/31/2022 Lab Laboratory Medicine Tony Rubalcava M. B., ChBurke, MElvia. [address] [place] [address] 55 [phone] (Nicolas wen) 07/31/2022 Office Visit Transplant Tony Rubalcava M.B., ChDaviBDavi, MDebra [address] [place] [address] 55 [phone] ( behzad) 07/31/2022 Appointment Radiology Tony Rubalcava M.B., ChBurke, MElvia. [address] [place] [address] 55 [phone] (Nicolas wen) 08/01/2022 Office Visit Transplant Tony Rubalcava M.B., Mukund Otoole [address] [place], [place] 55 [phone] (Wo rk) 08/01/2022 Clinical Support Transplant Tony Rubalcava M.B., Mukund Otoole [address] [place], [place] [phone] (Nicolas rk) documented as of 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 Procedures Procedure Name Priority Date/Time Associated Comments Diagnosis CBC WITH Routine 05/15/2022 10:10 AM Results for this DIFFERENTIAL, B CDT procedure ar e in the results section. POTASSIUM, S/P Routine 05/15/2022 10:10 AM Result s for this CDT procedure are i n the results section. PHOSPHORUS Routine 05/15/2022 10:10 AM Results for this (INORGANIC), S CDT procedure are in the results section. MAGNESIUM, S Routine 05/15/2022 10:10 AM Results for this CDT procedure are i n the results section. GLUCOSE, RANDOM, S/P Routine 05/15/2022 10:10 AM Results for this CDT procedure are i n the results section. CREATININE WITH Routine 05/15/2022 10:10 AM Resul ts for this EGFR, S/P CDT procedure are i n the results section. documented in 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 Results (ABNORMAL) CBC with Differential, Blood (05/15/2022 10:10 AM CDT) [facility] gist Method Time Signature EXT Leukocytes 7.15 4.50 - [place] 11.00 [facility] K/uL LABORATORY EXT RBC 3.50 (L) 4.00 - [place] 5.20 m/uL HOSPITAL LABORATORY EXT Hemoglobin 10.5 (L) 12.0 - [place] 16.0 [facility] gm/dL LABORATORY EXT Hematocrit 34.5 33.0 - [place] 51.0 % HOSPITAL LABORATORY EXT MCV 99 80 - 100 [facility] HOSPITAL LABORATORY EXT Platelet 120 (L) 140 - 440 [place] Count K/uL HOSPITAL LABORATORY EXT RDW 16.5 (H) 11.5 - [place] 15.5 % HOSPITAL LABORATORY EXT Neutrophils 5.02 1.7 - 7.0 [facility] LABORATORY EXT Lymphocytes 1.20 0.90 - [place] 2.90 [facility] LABORATORY EXT Monocytes 0.70 0.00 - [place] 0.90 [facility] LABORATORY EXT Eosinophils 0.04 0.00 - [place] 0.50 [facility] LABORATORY EXT Basophils 0.05 0.00 - [place] 0.30 [facility] LABORATORY Specimen (Source) Anatomical Collection Method Collection Time Re ceived Time Location / / Volume Laterality 05/15/2022 10:10 AM CDT Narrative [facility] - 05/16/2022 9:12 AM CDT Source result document attached to Order Number [id number] ([id number]) dated 05/15/2022. External results verified in Extract by Karoline Farah on 05/16/2022 at 09:07 AM. Ordering Provider External MDebra LAB BLOOD ADD-ON Performing Organization Address City/[facility]/ZIP Code Phon e Number [facility] LOCATION [address] [phone] LABORATORY [facility] LOCATION GROUP Magnesium (05/15/2022 10:10 AM CDT) P athologist Signature EXT Magnesium 1.7 1.5 - 2.6 [place] mg/dL [facility] LABORATORY Specimen (Source) Anatomical Collection Method Collection Time Re ceived Time Location / / Volume Laterality 05/15/2022 10:10 AM CDT Narrative [facility] LOCATION GROUP - 05/16/2022 9:12 AM CDT Source result document attached to Order Number [id number] ([id number]) dated 05/15/2022. External results verified in Extract by Karoline Farah on 05/16/2022 at 09:07 AM. Ordering Provider External Mukund LAB BLOOD ADD-ON Performing Organization Address City/[facility]/ZIP [facility] [place] [address], [facility] [phone] LABORATORY [facility] Phosphorus Inorganic (05/15/2022 10:10 AM CDT) P athologist Signature EXT Phosphorus 3.6 2.5 - 4.5 [place] (Inorganic), S mg/dL [facility] LABORATORY Specimen (Source) Anatomical Collection Method Collection Time Re ceived Time Location / / Volume Laterality 05/15/2022 10:10 AM CDT Narrative [facility] - 05/16/2022 9:12 AM CDT Source result document attached to Order Number [id number] ([id number]) dated 05/15/2022. External results verified in Extract by Karoline Farah on 05/16/2022 at 09:07 AM. Ordering Provider External MDebra LAB BLOOD ADD-ON Performing Organization Address [facility] Phon e Number [employer] [address] [phone] LABORATORY [facility] LOCATION GROUP (ABNORMAL) Glucose, Random (05/15/2022 10:10 AM CDT) athologist Signature EXT Glucose 146 (H) 60 - 115 [place] mg/dL [facility] LABORATORY Specimen (Source) Anatomical Collection Method Collection Time Re ceived Time Location / / Volume Laterality 05/15/2022 10:10 AM CDT Narrative [facility] - 05/16/2022 9:12 AM CDT Source result document attached to Order Number [id number] ([id number]) dated 05/15/2022. External results verified in Extract by Karoline Farah on 05/16/2022 at 09:07 AM. Ordering Provider External MDebra LAB BLOOD TROPONIN Performing Organization Address [facility] Phon e Number [address] [phone] LABORATORY [facility] LOCATION GROUP (ABNORMAL) Creatinine with Estimated GFR (05/15/2022 10:10 AM CDT) Analysis Performed At Patho logist Time Signature EXT Creatinine 1.9 (H) 0.5 - 1.5 [place] mg/dL [facility] LABORATORY Specimen (Source) Anatomical Collection Method Collection Time Re ceived Time Location / / Volume Laterality 05/15/2022 10:10 AM CDT Narrative [facility] GROUP - 05/16/2022 9:12 AM CDT Source result document attached to Order Number [id number] ([id number]) dated 05/15/2022. External results verified in Extract by Karoline Farah on 05/16/2022 at 09:07 AM. Ordering Provider External Mukund LAB BLOOD ADD-ON Performing Organization Address City/[facility]/ZIP [facility] Phon e Number [address] [address], [facility] [phone] LABORATORY [facility] LOCATION GROUP Potassium (05/15/2022 10:10 AM CDT) P athologist Signature EXT Potassium 4.1 3.6 - 5.1 [place] mmol/L [facility] LABORATORY Specimen (Source) Anatomical Collection Method Collection Time Re ceived Time Location / / Volume Laterality 05/15/2022 10:10 AM CDT Narrative [facility] LABOR[facility] - 022 9:12 AM CDT This result has an attachment that is no t available. External results verified in Extract by Karoline Farah on 05/16/2022 at 09:07 AM. Ordering Provider External Mukund LAB BLOOD ADD-ON Performing Organization Address City/[facility]/ZIP [facility] Phon e Number [facility] [address] [place] [phone] documented in 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 Visit Diagnoses Not on filedocumented in 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 Additional Health Concerns Assessment Noted Time PHQ-9 Depression Total Score: 3 04/07/2021 9:37 AM CDT documented as of 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 Care Teams Brick Offbearer Relationship Specialty Start Date End Date Elsewhere, Pcp PCP - General 09/17/19 [facility] External Provider Laboratory Medicine 04/25/22 documented as of 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
--- OUTSIDE RECORDS SUMMARY | 2022-05-25 12:58 | XMS_ITS | Encounter Summary ---
:1960 Author Organization [facility] Address [address] [place] [address] Care Team Providers Name Role Phone Elsewhere, Pcp Primary Care Provider Unavailable Encounter Details Date Type Department Care Team Description 05/02/2022 Orders Only Ata horton [place], [place] lizette Belle for Transplantation and RRalf, C. C.T.C. Clinical Regeneration in [address] [place], [place] [address] [place] [address] [place] [address] [phone] Social History Tobacco Use Types Packs/Day Years [...] 12/23/2021 relatives? How often do you attend sikhism or mormonism 1 to 4 times per year 12/23/2021 services? Do you belong to any clubs or organizations such No 12/23/2021 as sikhism groups, unions, fraternal or athletic groups, or [...] place to sleep or slept in a prison (including now)? Education Answer Date Recorded What [...] An Nicholas APRN, C.N.P., D.N.P., M.S.N. [address] [place] [address] 55 [phone] (Nicolas wen) 07/31/2022 Lab Laboratory Medicine Tony Rubalcava M. B., ChDaviBDavi, M.D. [address] [place] [address] 55 [phone] (Nicolas wen) 07/31/2022 Lab Laboratory Medicine Tony Rubalcava M. B., Ch.BDavi, M.D. [address] [place] [address] 55 [phone] (Nicolas ewn) 07/31/2022 Office Visit Transplant Tony Rubalcava M.B., ChDaviBDavi, M.D. [address] [place] [address] 55 [phone] (Nicolas wen) 07/31/2022 Appointment Radiology Tony Rubalcava M.B., Sydnie, Mukund [address] [place] [address] [phone] (Wo rk) 08/01/2022 Office Visit Transplant Tony Rubalcava M.B., Mukund Otoole [address] [place] [address] 55 [phone] (Wo behzad) 08/01/2022 Clinical Support Transplant Tony Rubalcava M.B., Mukund Otoole [address] [place] [address] 55 [phone] (Nicolas wen) documented as of 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 Visit Diagnoses Not on filedocumented in this encounter Additional Health Concerns Assessment Noted Time PHQ-9 Depression Total Score: 3 04/07/2021 9:37 AM CDT documented as of this encounter Care Teams Alcohol Law Enforcement Agent Relationship Specialty Start Date End Date Elsewhere, Pcp PCP - General 09/17/19 [facility] External Provider Laboratory Medicine 04/25/22 documented as of this encounter
--- OUTSIDE RECORDS SUMMARY | 2022-05-25 12:58 | XMS_ITS | Encounter Summary ---
:1960 Author Organization [facility] Address [address] [place] [address] Care Team Providers Name Role Phone Elsewhere, Pcp Primary Care Provider Unavailable Encounter Details Date Type Department Care Team Description 05/05/2022 Orders Only Pharmacy Prior Auth RO An Saleem [phone] Social History Tobacco Use Types Packs/Day Years [...] times do you talk on Twice a wejayy karimi 12/23/2021 the phone with family, friends, or neighbors? How often do you get together with friends or Patient refuse d 12/23/2021 relatives? How often do you attend sabianism or orthodox 1 to 4 times per [...] Nicholas APRN, C.N.P., D.N.P., M.S.N. [address] [place] [address] 55 [phone] (Wo rk) 07/31/2022 Lab Laboratory Medicine Tony Rubalcava M. B., Sydnie, MDebra [address] [place] [address] [phone] (Wo rk) 07/31/2022 Lab Laboratory Medicine Tony Rubalcava M. B., Sydnie, MDebra [address] [place] [address] [phone] (Wo rk) 07/31/2022 Office Visit Transplant Tony Rubalcava M.B., Sydnie, MDebra [address] [place] [address] 55 [phone] (Wo rk) 07/31/2022 Appointment Radiology Tony Rubalcava M.B., Sydnie, MDebra [address] [place] [address] [phone] (Wo rk) 08/01/2022 Office Visit Transplant Tony Rubalcava M.B., ChMukund Turk [address] [place], [place] 55 [phone] (Wo rk) 08/01/2022 Clinical Support Transplant Tony Rubalcava M.B., Mukund Otoole 200 [place], [place] 55 [phone] (Wo rk) documented as of this encounter Visit Diagnoses Not on filedocumented in this encounter Additional Health Concerns Assessment Noted Time PHQ-9 Depression Total Score: 3 04/07/2021 9:37 AM CDT documented as of this encounter Care Teams Systems Tester Relationship Specialty Start Date End Date Elsewhere, Pcp PCP - General 09/17/19 [facility] External Provider Laboratory Medicine 04/25/22 documented as of this encounter
--- OUTSIDE RECORDS SUMMARY | 2022-05-25 12:58 | XMS_ITS | Encounter Summary ---
:1960 Author Organization [facility] Address [address] [place] [address] Care Team Providers Name Role Phone Elsewhere, Pcp Primary Care Provider Unavailable Reason for Visit Reason Comments Med Refill Encounter Details Date Type Department Care Team Description 05/02/2022 Refill [facility] for Brock, Kr luz Moses R.N., Med Refill Transplantation and Clinical C.C .T.C. Regeneration in [place], [address] [place], [place] [address] [facility] [address] [place] [address] [phone] (work) [phone] Social History Tobacco Use Types Packs/Day Years [...] 12/23/2021 relatives? How often do you attend episcopalian or pentecostal 1 to 4 times per year 12/23/2021 services? Do you belong to any clubs or organizations such No 12/23/2021 as episcopalian groups, unions, fraternal or athletic groups, or [...] place to sleep or slept in a penitentiary (including now)? Education Answer Date Recorded What [...] An Nicholas APRN, C.N.P., D.N.P., M.S.N. [address] [place] [address] 55 [phone] (Nicolas wen) 07/31/2022 Lab Laboratory Medicine Tony Rubalcava M. B., ChDaviBDavi, M.D. [address] [place] [address] 55 [phone] (Nicolas wen) 07/31/2022 Lab Laboratory Medicine Tony Rubalcava M. B., Ch.BDavi, M.D. [address] [place] [address] 55 [phone] (Nicolas wen) 07/31/2022 Office Visit Transplant Tony Rubalcava M.B., ChDaviBDavi, M.D. [address] [place] [address] 55 [phone] (Nicolas wen) 07/31/2022 Appointment Radiology Tony Rubalcava M.B., Sydnie, Mukund [address] [place] [address] 55 [phone] (Wo rk) 08/01/2022 Office Visit Transplant Tony Rubalcava M.B., Mukund Otoole [address] [place] [address] 55 [phone] (Wo behzad) 08/01/2022 Clinical Support Transplant Tony Rubalcava M.B., Mukund Otoole [address] [place] [address] 55 [phone] (Nicolas wen) documented as of this encounter Visit Diagnoses Diagnosis Transplant Renal (HCC) - Primary documented in this encounter Additional Health Concerns Assessment Noted Time PHQ-9 Depression Total Score: 3 04/07/2021 9:37 AM CDT documented as of this encounter Care Teams Lining Layer Relationship Specialty Start Date End Date Elsewhere, Pcp PCP - General 09/17/19 [facility] External Provider Laboratory Medicine 04/25/22 documented as of this encounter
--- OUTSIDE RECORDS SUMMARY | 2022-05-25 12:59 | XMS_ITS | Encounter Summary ---
:1960 Author Organization [facility] Address [address] [place] [address] Care Team Providers Name Role Phone Elsewhere, Pcp Primary Care Provider Unavailable Encounter Details Date Type Department Care Team Description 05/01/2022 Orders Only [facility] Jose Roberto Nicholas for Transplantation and Alvaro ClarkS. Clinical Regeneration in [address] [place] [address] [place] [phone] [place] [address] [phone] Social History Tobacco Use Types Packs/Day Years [...] 12/23/2021 relatives? How often do you attend nondenominational or gnosticist 1 to 4 times per year 12/23/2021 services? Do you belong to any clubs or organizations such No 12/23/2021 as nondenominational groups, unions, fraternal or athletic groups, or [...] place to sleep or slept in a [place] [facility] [place] (including now)? Education Answer Date Recorded What [...] An Nicholas APRN, C.N.P., D.N.P., M.S.N. [address] [place] [address] 55 [phone] (Nicolas wen) 07/31/2022 Lab Laboratory Medicine Toyn Rubalcava M. B., ChBurke, MElvia. [address] [place] [address] 55 [phone] (Nicolas wen) 07/31/2022 Lab Laboratory Medicine Tony Rubalcava M. B., ChBurke, M.Michelle. [address] [place] [address] 55 [phone] (Nicolas wen) 07/31/2022 Office Visit Transplant Tony Rubalcava M.B., ChBurke, MElvia. [address] [place] [address] 55 [phone] (Nicolas wen) 07/31/2022 Appointment Radiology Tony Rubalcava M.B., Ch.BDavi, Mukund [address] [place] [address] 55 [phone] (Nicolas wen) 08/01/2022 Office Visit Transplant Tony Rubalcava M.B., Mukund Otoole [address] [place] [address] 55 [phone] (Nicolas wen) 08/01/2022 Clinical Support Transplant Tony Rubalcava M.B., Sydnie, Mukund [address] [place] [address] 55 [phone] (Nicolas wen) documented as of this encounter Visit Diagnoses Not on filedocumented in this encounter Additional Health Concerns Assessment Noted Time PHQ-9 Depression Total Score: 3 04/07/2021 9:37 AM CDT documented as of this encounter Care Teams Planting Supervisor Relationship Specialty Start Date End Date Elsewhere, Pcp PCP - General 09/17/19 [facility] External Provider Laboratory Medicine 04/25/22 documented as of this encounter
--- OUTSIDE RECORDS SUMMARY | 2022-05-25 12:59 | XMS_ITS | Encounter Summary ---
:1960 Author Organization [facility] Address [address] [place] [address] Care Team Providers Name Role Phone Elsewhere, Pcp Primary Care Provider Unavailable Reason for Visit Transplant (Routine) - Closed Specialty Diagnoses / Procedures Referred By Contact Refer red To Contact Transplant Surgery / Diagnoses [facility] Mukund Gomez [address] [place] [phone] Referral ID Status Reason Start Date Expiration Date Visits Requ ested Visits Authorized [id number] Closed 04/19/2022 04/19/2023 1 1 Encounter Details Date Type Department Care Team Description 04/25/2022 Comprehensive Visit Ata Knapp, Transplant Renal Center for Mukund Del Cid ([facility]) Transplantation and [address] [place] [address], [address] [place] [phone] [phone] Social History Tobacco Use Types Packs/Day Years [...] 12/23/2021 relatives? How often do you attend zoroastrianism or zoroastrianism 1 to 4 times per year 12/23/2021 services? Do you belong to any clubs or organizations such No 12/23/2021 as zoroastrianism groups, unions, fraternal or athletic groups, or [...] place to sleep or slept in a custodial (including now)? Education Answer Date Recorded What is the highest level of school you have GED or equivale nt 01/26/2019 completed or the highest degree you have received? Sex Assigned at Date Recorded Female 12/23/2021 4:18 AM CDT documented as of this encounter Progress Notes Nehemias Felipe M.D. - 04/25/2022 11:00 AM CDT SUBJECTIVE CHIEF COMPLAINT / REASON FOR VISIT Post-transplant follow-up TRANSPLANT HISTORY Problem List Other Transplant Renal (HCC) HISTORY OF PRESENT ILLNESS Shabnam Wray is a 61 y.o. female who developed Stage V chronic kidney disease secondary to unknown etiology. 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 She was on dialysis prior to transplant. She received induction with basiliximab and is maintained on tacrolimus, MMF, and steroids. Her post-operative course has been complicated by delayed graft function. OBJECTIVE VITAL SIGNS There were no vitals taken for this visit. PHYSICAL EXAM TXP Physical Exam LABS Hemoglobin (g/dL) Date Value 04/25/2022 10.0 (L) Hemoglobin A1c, B (%) Date Value 04/07/2021 5.4 Hemoglobin, QL, U (no units) Date Value 04/06/2022 Large (A) WBC (/hpf) Date Value 04/21/2022 4-10 Leukocytes (x10(9)/L) Date Value 04/25/2022 6.8 White Blood Cells (/hpf) Date Value 09/12/2019 4-10 Lymphocytes (x10(9)/L) Date Value 04/25/2022 1.46 Platelet Count (x10(9)/L) Date Value 04/25/2022 121 (L) Sodium, S (mmol/L) Date Value 04/25/2022 141 Sodium, P (mmol/L) Date Value 04/06/2022 133 (L) Sodium, Random, U (MMOL/L) Date Value 10/31/2014 100 Potassium, S (mmol/L) Date Value 04/25/2022 3.7 Potassium, B (mmol/L) Date Value 01/22/2020 3.8 Potassium, P (mmol/L) Date Value 04/06/2022 4.7 Potassium, Random, U (MMOL/L) Date Value 10/31/2014 12 HCO3 (MMOL/L) Date Value 06/02/2014 12 (L) BUN (Blood Urea Nitrogen), S (mg/dL) Date Value 04/25/2022 50 (H) BUN (Blood Urea Nitrogen), P (mg/dL) Date Value 04/06/2022 32 (H) Creatinine Date Value 04/25/2022 2.48 mg/dL (H) 04/06/2022 6.04 mg/dL (H) 08/29/2016 98 MG/DL Calcium, Total, S (mg/dL) Date Value 04/25/2022 9.4 Calcium, Ionized, B Date Value 01/22/2020 5.12 mg/dL 06/02/2014 4.90 MG/DL Calcium, Ionized, S (mg/dL) Date Value 06/05/2019 5.13 Calcium, Total, P (mg/dL) Date Value 04/06/2022 8.5 (L) Magnesium, S (mg/dL) Date Value 04/25/2022 1.5 (L) ASSESSMENT / PLAN The patient is a 61 y.o. female with Stage V chronic kidney disease who underwent donor kidney transplantation on 04/06/22. documented in this encounter Plan of Treatment Upcoming Encounters Date Type Specialty Care Team Description 06/01/2022 Telemedicine Pharmacy An Nicholas APRN, C.NDaviPDavi, D.N.P., M.S.N. [address] [place] [address] 55 [phone] (Wo rk) 07/31/2022 Lab Laboratory Medicine Tony Rubalcava M. B., Sydnie, Mukund [address] [place] [address] 55 [phone] (Wo rk) 07/31/2022 Lab Laboratory Medicine Tony Rubalcava M. B., Sydnie, Mukund [address] [place] [address] 55 [phone] (Wo rk) 07/31/2022 Office Visit Transplant Tony Rubalcava M.B., Sydnie, Mukund [address] [place] [address] 55 [phone] (Wo rk) 07/31/2022 Appointment Radiology Tony Rubalcava M.B., Sydnie, Mukund [address] [place] [address] 55 [phone] (Wo rk) 08/01/2022 Office Visit Transplant Tony Rubalcava M.B., Sydnie, Mukund [address] [place] [address] 55 [phone] ( rk) 08/01/2022 Clinical Support Transplant Tony Rubalcava M.B., Sydnie, Mukund [address] [place] [address] 55 [phone] (Wo rk) documented as of this encounter Visit Diagnoses Diagnosis Transplant Renal (HCC) documented in this encounter Additional Health Concerns Assessment Noted Time PHQ-9 Depression Total Score: 3 04/07/2021 9:37 AM CDT documented as of this encounter Care Teams Anthropology Department Chair Relationship Specialty Start Date End Date Elsewhere, Pcp PCP - General 09/17/19 [facility] External Provider Laboratory Medicine 04/25/22 documented as of this encounter
--- OUTSIDE RECORDS SUMMARY | 2022-05-25 12:59 | XMS_ITS | Encounter Summary ---
:1960 Author Organization [facility] Address [address] [place] [address] Care Team Providers Name Role Phone Elsewhere, Pcp Primary Care Provider Unavailable Encounter Details Date Type Department Care Team Description 04/25/2022 Clinical Communication [facility] Yves Matthews Eisenberg C.Ph.T. [address] [facility] [phone] [place], [place] (Work) [phone] Social History Tobacco Use Types Packs/Day Years [...] 12/23/2021 relatives? How often do you attend shinto or sabianist 1 to 4 times per year 12/23/2021 services? Do you belong to any clubs or organizations such No 12/23/2021 as shinto groups, unions, fraternal or athletic groups, or [...] Nicholas APRN C.N.P., D.N.P., M.S.N. [address] [place] [address] [phone] (Nicolas wen) 07/31/2022 Lab Laboratory Medicine Tony Rubalcava M. B., ChBurke, MElvia. [address] [place] [address] 55 [phone] (Nicolas wen) 07/31/2022 Lab Laboratory Medicine Tony Rubalcava M. B., ChBurke, MDebra [address] [place] [address] 55 [phone] (Nicolas wen) 07/31/2022 Office Visit Transplant Tony Rubalcava M.B., ChBurke, MDebra [address] [place] [address] 55 [phone] ( behzad) 07/31/2022 Appointment Radiology Tony Rubalcava M.B., ChBurke, MElvia. [address] [place] [address] 55 [phone] ( behzad) 08/01/2022 Office Visit Transplant Tony Rubalcava M.B., Mukund Otoole [address] [place], [place] 55 [phone] (Wo behzad) 08/01/2022 Clinical Support Transplant Tony Rubalcava M.B., Sydnie, Mukund [address] [place], [place] 55 [phone] (Nicolas wen) documented as of this encounter Visit Diagnoses Not on filedocumented in this encounter Additional Health Concerns Assessment Noted Time PHQ-9 Depression Total Score: 3 04/07/2021 9:37 AM CDT documented as of this encounter Care Teams Station Jailer Relationship Specialty Start Date End Date Elsewhere, Pcp PCP - General 09/17/19 [facility] External Provider Laboratory Medicine 04/25/22 documented as of this encounter
--- OUTSIDE RECORDS SUMMARY | 2022-05-25 12:59 | XMS_ITS | Encounter Summary ---
:1960 Author Organization [facility] Address [address] [place] [address] Care Team Providers Name Role Phone Elsewhere, Pcp Primary Care Provider Unavailable Encounter Details Date Type Department Care Team Description 04/25/2022 Orders Only Ata Mcguire, Transp lant Renal (HCC) (Primary Dx); [facility] Sandra Belle, High Risk Medic ation; Transplantation and R.N., C.C.T. C. Aftercare Transplant Liver (HCC); Clinical Regeneration [address] [facility] Aftercare Transplant Renal (HCC); in [facility] potato loader [place], [place] Immunodeficiency (HCC); [address] [facility] [id number] Other Specified Personal Risk Factors No t Elsewhere Classified [place], [place] [phone] [address] (Work) [phone] Social History Tobacco Use Types Packs/Day Years Used Date Smoking Tobacco: Former Cigarettes 0.5 30 Star rbeecca: 01/29/1975 Smokeless Tobacco: Never Alcohol Use Standard [...] 12/23/2021 relatives? How often do you attend anabaptist or samaritan 1 to 4 times per year 12/23/2021 services? Do you belong to any clubs or organizations such No 12/23/2021 as anabaptist groups, unions, fraternal or athletic groups, or [...] An Nicholas APRN, C.N.P., D.N.P., M.S.N. [address] [place] [address] 55 [phone] (Wo rk) 07/31/2022 Lab Laboratory Medicine Tony Rubalcava M. B., Ch.B., MElvia. [address] [place] [address] 55 [phone] (Wo rk) 07/31/2022 Lab Laboratory Medicine Tony Rubalcava M. B., ChDaviBDavi, MElvia. [address] [place] [address] 55 [phone] (Wo rk) 07/31/2022 Office Visit Transplant Tony Rubalcava M.B., ChBurke, Mukund [address] [place] [address] 55 [phone] (Wo rk) 07/31/2022 Appointment Radiology Tony Rubalcava M.B., Mukund Otoole [address] [place] [address] 55 [phone] (Wo rk) 08/01/2022 Office Visit Transplant Tony Rubalcava M.B., Mukund Otoole [address] [place] [address] 55 [phone] (Wo rk) 08/01/2022 Clinical Support Transplant Tony Rubalcava M.B., Mukund Otoole [address] [place] [address] 55 [phone] (Wo rk) documented as of this encounter Visit Diagnoses Diagnosis Transplant Renal (HCC) - Primary High Risk Medication Aftercare Transplant Liver (HCC) Aftercare Transplant Renal (HCC) Immunodeficiency (HCC) Other Specified Personal Risk Factors No t Elsewhere Classified documented in this encounter Additional Health Concerns Assessment Noted Time PHQ-9 Depression Total Score: 3 04/07/2021 9:37 AM CDT documented as of this encounter Care Teams Machine Buffer Relationship Specialty Start Date End Date Elsewhere, Pcp PCP - General 09/17/19 [facility] External Provider Laboratory Medicine 04/25/22 documented as of this encounter
--- OUTSIDE RECORDS SUMMARY | 2022-05-25 12:59 | XMS_ITS | Encounter Summary ---
:1960 Author Organization [facility] Address 200 [place] [address] Care Team Providers Name Role Phone Elsewhere, Pcp Primary Care Provider Unavailable Encounter Details Date Type Department Care Team Description 04/25/2022 Orders Only Sandra Rae Transplant Renal (HCC) (Primary Dx); Center for J, R.N., C.C.T.C . Transplant Renal (HCC); Transplantation and [address] High Risk Medication; Clinical Regeneration in [place], [place] Ot her Specified Personal Risk Factors Not Elsewhere Classified [place], [place] [address] [place] [address] [place] [address] (Work) [phone] Social History Tobacco Use Types Packs/Day Years [...] 12/23/2021 relatives? How often do you attend quaker or roman catholic 1 to 4 times per year 12/23/2021 services? Do you belong to any clubs or organizations such No 12/23/2021 as quaker groups, unions, fraternal or athletic groups, or [...] An Nicholas APRN, C.N.P., D.N.P., M.S.N. [address] [place] [address] 55 [phone] (Wo rk) 07/31/2022 Lab Laboratory Medicine Tony Rubalcava M. B., ChBurke, MElvia. [address] [place] [address] 55 [phone] (Wo rk) 07/31/2022 Lab Laboratory Medicine Tony Rubalcava M. B., Sydnie, MDebra [address] [place] [address] 55 [phone] (Wo rk) 07/31/2022 Office Visit Transplant Tony Rubalcava M.B., Sydnie, MDebra [address] [place] [address] 55 [phone] (Wo rk) 07/31/2022 Appointment Radiology Tony Rubalcava M.B., Mukund Otoole [address] [place] [address] 55 [phone] (Wo rk) 08/01/2022 Office Visit Transplant Tony Rubalcava M.B., Mukund Otoole [address] [place] [address] 55 [phone] (Wo rk) 08/01/2022 Clinical Support Transplant Tony Rubalcava M.B., Sydnie, Mukund [address] [place] [address] 55 [phone] (Wo rk) documented as of this encounter Visit Diagnoses Diagnosis Aftercare Transplant Renal (HCC) - Prima ry Transplant Renal (HCC) High Risk Medication Other Specified Personal Risk Factors No t Elsewhere Classified documented in this encounter Additional Health Concerns Assessment Noted Time PHQ-9 Depression Total Score: 3 04/07/2021 9:37 AM CDT documented as of this encounter Care Teams Records Supervisor Relationship Specialty Start Date End Date Elsewhere, Pcp PCP - General 09/17/19 [facility] External Provider Laboratory Medicine 04/25/22 documented as of this encounter
--- OUTSIDE RECORDS SUMMARY | 2022-05-25 12:59 | XMS_ITS | Encounter Summary ---
:1960 Author Organization [facility] Address [address] [place] [address] Care Team Providers Name Role Phone Elsewhere, Pcp Primary Care Provider Unavailable Reason for Referral Outpatient (Routine) - Closed Specialty Diagnoses / Procedures Referred By Contact Refer red To Contact Diagnoses [facility] Procedures Short renal clearance: Iothalamate (Renal Studies Unit) [place] [address] [place] [address] Referral ID Status Reason Start Date Expiration Date Visits Requ ested Visits Authorized [id number] Closed 04/19/2022 04/19/2023 1 1 Reason for Visit Outpatient (Routine) - Closed Specialty Diagnoses / Procedures Referred By Contact Refer red To Contact Diagnoses [facility] Procedures Short renal clearance: Iothalamate (Renal Studies Unit) [place] [address] [place] [address] Referral ID Status Reason Start Date Expiration Date Visits Requ ested Visits Authorized [id number] Closed 04/19/2022 04/19/2023 1 1 Encounter Details Date Type Department Care Team Description 04/28/2022 Hospital Encounter Department of Riana Cox Renal Laboratory Medicine Alvaro Gomez ([facility]) and Pathology, 200 [place], [place] in [facility] [address] [place] [phone] 200 [facility] (Work) [place], [place] [phone] (Fax) [phone] Social History Tobacco Use Types Packs/Day Years [...] 12/23/2021 relatives? How often do you attend islam or temple 1 to 4 times per year 12/23/2021 services? Do you belong to any clubs or organizations such No 12/23/2021 as islam groups, unions, fraternal or athletic groups, or [...] place to sleep or slept in a nursing home (including now)? Education Answer Date Recorded What is the highest level of school you have GED or equivale nt 01/26/2019 completed or the highest degree you have received? Sex Assigned at Date Recorded Female 12/23/2021 4:18 AM CDT documented as of this encounter Last Filed Vital Signs Vital Sign Reading Time Taken Comments Blood Pressure - - Pulse - - Temperature - - Respiratory Rate - - Oxygen Saturation - - Inhaled Oxygen Concentration - - Weight 97.1 kg (214 lb 1.1 oz) 04/28/2022 12:00 PM CDT Height 161.8 cm (5' 3.7) 04/28/2022 12:00 PM CDT Body Mass Index 37.09 04/28/2022 12:00 PM CDT documented in this encounter Medications at Time of Discharge Medication Sig Dispensed Refills Start Date End Date acetaminophen (TYLENOL) Take 2 tablets (650 100 tablet 0 325 mg tablet mg total) by mouth every 6 (six) hours as needed for pain. Do not exceed 3000mg in 24 hours. gabapentin (NEURONTIN) TAKE 3 CAPSULES BY 450 capsule 3 03/21 100 mg capsule MOUTH IN THE MORNING AND 2 CAPSULES IN THE EVENING hydrocortisone Apply 1 application 0 09/18/2017 (for_HYTONE) 2.5 % topically daily as cream needed (Eczema). multivitamin tablet Take 1 tablet by 30 tablet 3 04/07/2022 mouth daily. pantoprazole (PROTONIX) Take 1 tablet (40 mg 30 tablet 0 40 mg EC tablet total) by mouth every morning before breakfast. rosuvastatin (CRESTOR) Take 1 tablet (5 mg 90 tablet 3 03/2004/07/2023 5 mg tablet total) by mouth at bedtime. sertraline (ZOLOFT) 25 Take 1 tablet (25 mg 90 tablet 3 04/07/2023 mg tablet total) by mouth at bedtime. magnesium oxide Take 1 tablet (400 60 tablet 0 04/28/2022 0 05/02/2022 (MAG-OX) 400 mg (241.3 mg total) by mouth 2 mg magnesium) tablet (two) times a day before breakfast and dinner. mycophenolate Take 3 capsules (750 180 capsule 1 04/07/2022 05/02/2022 (CELLCEPT) 250 mg mg total) by mouth capsule every 12 (twelve) hours. Take medication on an empty stomach. Do not break, cut, or open capsules. nebivoloL (BYSTOLIC) 5 Take 5 mg by mouth 0 05/05/2022 mg tablet daily. potassium Take 1 tablet (250 60 tablet 0 04/28/20222021 phosphate-sodium mg total) by mouth 2 phosphate (K-PHOS (two) times a day. NEUTRAL) 250 mg tablet predniSONE (DELTASONE) Take 1-4 tablets 120 tablet 1 022 05/02/2022 5 mg tablet (5-20 mg total) by mouth daily. 04/11-04/28: 4 tabs, 04/29-05/05: 3 tabs, 05/06-05/12: 2 tabs, 05/13 and after: 1 tab daily sulfamethoxazole-trimet Take 1 tablet by 30 tablet 5 202105/02/2022 hoprim (BACTRIM,SEPTRA) mouth daily. Stop 400-80 mg per tablet date: 10/08/22. Dose adjusted based on renal function. tacrolimus (PROGRAF) 1 Take 3 capsules (3 180 capsule 1 09/202105/02/2022 mg capsule mg total) by mouth every 12 (twelve) hours. Dose may change based on levels. valGANciclovir Take 1 tablet (450 30 tablet 2 04/28/2022 (VALCYTE) 450 mg tablet mg total) by mouth daily. Dose may be adjusted based on kidney function. Stop date: 07/08/22 documented as of this encounter Plan of Treatment Upcoming Encounters Date Type Specialty Care Team Description 06/01/2022 Telemedicine Pharmacy An Nicholas APRN C.N.P., D.N.P., M.S.N. [address] [place] [address] [phone] (Nicolas wen) 07/31/2022 Lab Laboratory Medicine Tony Rubalcava M. B., Ch.B., M.D. [address] [place] [address] [phone] (Nicolas wen) 07/31/2022 Lab Laboratory Medicine Tony Rubalcava M. B., Ch.B., M.D. [address] [place] [address] [phone] (Nicolas wen) 07/31/2022 Office Visit Transplant Tony Rubalcava M.B., Sydnie, [place] [address] [place] [address] [phone] (Wo rk) 07/31/2022 Appointment Radiology Tony Rubalcava M.B., [place] [address] [place] [address] [phone] (Wo rk) 08/01/2022 Office Visit Transplant oTny Rubalcava M.B., [place] [address] [place] [address] [phone] (Wo rk) 08/01/2022 Clinical Support Transplant Tony Rubalcava M.B., [place] [address] [place] [address] [phone] (Wo rk) Scheduled Orders Name Type Priority Associated Diagnoses Order S chedule Short renal clearance: Procedures Routine Transplant Renal O nce for 1 Occurrences Iothalamate (Renal (HCC) starting 04/28/2022 Studies Unit) until 04/28/20 22 documented as of this encounter Procedures Procedure Name Priority Date/Time Associated Comments Diagnosis IOTHALAMATE, Routine 04/28/2022 12:13 PM Results for this GLOMERULAR CDT procedure are i n FILTRATION RATE, P the resul ts section. documented in this encounter Results (ABNORMAL) Iothalamate, Glomerular Filtration Rate (04/28/2022 12:13 PM CDT) P athologist Signature Uncorrctd 25 mL/min 04/28/2022 JR Iothal Cl 5:39 PM CDT Corrctd Iothal 22 (L) 66 - 120 04/28/2022 JR Cl mL/min/BSA 5:39 PM CDT Comment: ----ADDITIONAL INFORMATION---- This test was developed and its performa nce characteristics determined by [facility] in a manner consistent with CLIA requirements. This test has not been cleared or approved by the U.S. Jina d and Drug Administration. Specimen Anatomical Collection Method Collection Time Receive d Time (Source) Location / / Volume Laterality Varies (Blood, 04/28/2022 12:13 2 2:19 Venous) PM CDT PM CDT Narrative [facility] - 04/28/2022 5:39 PM CDT Specimen Information: Specimen ID: [id number] Specimen Type: Varies Specimen Collection Start Date: 2 12:13 PM Specimen Received Date: 04/28/2022 ??2:19 PM Specimen ID: [id number] Specimen Type: Varies Specimen Collection Start Date: 2 ??1:16 PM Specimen Received Date: 04/28/2022 ??2:19 PM Specimen ID: [id number] Specimen Type: Varies Specimen Collection Start Date: 2 ??2:01 PM Specimen Received Date: 04/28/2022 ??2:19 PM Specimen ID: [id number] Specimen Type: Varies Specimen Collection Start Date: 2 ??1:22 PM Specimen Received Date: 04/28/2022 ??2:19 PM Specimen ID: [id number] Specimen Type: Varies Specimen Collection Start Date: 2 ??2:06 PM Specimen Received Date: 04/28/2022 ??2:19 PM Patricia Cox M.D. LAB BLOOD NON ADD-ON Performing Organization Address City/State/ZIP Code Phon e Number [facility] [address] [place], [place] [address] [address] [place] [address] Formerly [facility] [address] documented in this encounter Visit Diagnoses Diagnosis Transplant Renal (HCC) documented in this encounter Administered Medications Inactive Administered Medications - up to 3 most recent administrations Medication Order MAR Action Action Date Dose Rate Site iothalamate meglumine 30 % Given 04/28/2022 12:17 PM 1 mL Left Outer Thigh injection 1 mL (CONRAY 30) CDT 1 mL, subcutaneous, Once, On Sun04/28/22 at 1215, For 1 dose documented in this encounter Additional Health Concerns Assessment Noted Time PHQ-9 Depression Total Score: 3 04/07/2021 9:37 AM CDT documented as of this encounter Care Teams Test Lead Relationship Specialty Start Date End Date Elsewhere, Pcp PCP - General 09/17/19 [facility] External Provider Laboratory Medicine 04/25/22 documented as of this encounter
--- OUTSIDE RECORDS SUMMARY | 2022-05-25 12:59 | XMS_ITS | Encounter Summary ---
:1960 Author Organization [facility] Address [address] [place] [address] Care Team Providers Name Role Phone Elsewhere, Pcp Primary Care Provider Unavailable Encounter Details Date Type Department Care Team Description 05/01/2022 Hospital Encounter Department of Guilherme, Cassie Bautista Renal Laboratory Medicine M.DDavi (HCC) and Pathology, [address] [place] [address] in [facility] [address] [place] [phone] [place] [address] (Work) [place], [place] [phone] (Fax) [phone] Social History Tobacco Use Types Packs/Day Years [...] often do you attend roman catholic or worship 1 to 4 times per year 12/23/2021 [...] AM CDT documented as of this encounter Medications at Time of Discharge [...] Nicholas APRN, C.N.P., D.N.P., M.S.N. [address] [place], [place] [phone] (Wo rk) 07/31/2022 Lab Laboratory Medicine Tony Rubalcava M. B., Sydnie, [place] [address] [place] [phone] (Wo rk) 07/31/2022 Lab Laboratory Medicine Tony Rubalcava M. B., Sydnie, [place] [address] [place] [phone] (Wo rk) 07/31/2022 Office Visit Transplant Tony Rubalcava M.B., Sydnie, [place] [address] [place] [address] [phone] (Wo rk) 07/31/2022 Appointment Radiology Tony Rubalcava M.B., Sydnie, [place] [address] [place] [address] [phone] (Wo rk) 08/01/2022 Office Visit Transplant Tony Rubalcava M.B., Sydnie, [place] [address] [place] [address] [phone] (Wo rk) 08/01/2022 Clinical Support Transplant Tony Rubalcava M.B., Sydnie, [place] [address] [place] [phone] (Nicolas rk) documented as of this encounter Procedures Procedure Name Priority Date/Time Associated Comments Diagnosis TACROLIMUS LEVEL, B Routine 05/08/2022 10:00 AM Transplant Jack al Results for this CDT (HCC) procedure are i n the results section. documented in this encounter Results Tacrolimus, B (05/08/2022 10:00 AM CDT) athologist Signature Tacrolimus, B 8.0 5.0-15.0 05/16/2022 [facility] (Trough) 10:26 AM CDT ng/mL Comment: ----ADDITIONAL INFORMATION---- Target steady-state trough concentration s vary depending on the type of transplant, concomitant immunosuppressio n, clinical/institutional protocols, and time post-transplant. Results should be interpreted in conjunction with this clinical information and any physic al signs/symptoms of rejection/toxicity. Testing performed by Liquid Chromatograp hy-Tandem Mass Spectrometry (LC-MS/MS). This test was developed and its performa nce characteristics determined by [facility] in a manner consistent with CLIA requirements. This test has not been cleared or approved by the U.S. Jina d and Drug Administration. Specimen Anatomical Collection Method Collection Time Receive d Time (Source) Location / / Volume Laterality Blood (Blood, 05/08/2022 10:00 05/16/2022 7:24 Venous) AM CDT AM CDT Resulting Agency Comment Mailed In Specimen Twin Vanegas M.D. LAB BLOOD NON ADD-ON Performing Organization Address City/State/ZIP Code Phon e Number [facility] [address] [place] [address] [facility] Laboratories [place], [place] [address] [place] [address] [place] documented in this encounter Visit Diagnoses Diagnosis Transplant Renal (HCC) documented in this encounter Additional Health Concerns Assessment Noted Time PHQ-9 Depression Total Score: 3 04/07/2021 9:37 AM CDT documented as of this encounter Care Teams Terrazzo Laborer Relationship Specialty Start Date End Date Elsewhere, Pcp PCP - General 09/17/19 [facility] External Provider Laboratory Medicine 04/25/22 documented as of this encounter
--- OUTSIDE RECORDS SUMMARY | 2022-05-25 12:59 | XMS_ITS | Encounter Summary ---
:1960 Author Organization [facility] Address [address] [place] [address] Care Team Providers Name Role Phone Elsewhere, Pcp Primary Care Provider Unavailable Encounter Details Date Type Department Care Team Description 04/25/2022 Hospital Encounter [facility] N[facility] Ren[facility], [place] [address] [address] [place], [place] [address] [facility] [address] [place], [place] [phone] [address] (Work) [phone] Social History Tobacco Use Types Packs/Day Years [...] 12/23/2021 relatives? How often do you attend christianity or sabianist 1 to 4 times per year 12/23/2021 services? Do you belong to any clubs or organizations such No 12/23/2021 as christianity groups, unions, fraternal or athletic groups, or [...] by mouth at bedtime. magnesium oxide Take 2 tablets (800 60 tablet 0 04/08/2022 04/28/2022 (MAG-OX) 400 mg (241.3 mg total) by mouth mg magnesium) tablet every morning before breakfast. mycophenolate Take 3 capsules (750 180 capsule 1 04/07/2022 05/02/2022 (CELLCEPT) 250 mg mg total) by mouth capsule every 12 (twelve) hours. Take medication on an empty stomach. Do not break, cut, or open capsules. nebivoloL (BYSTOLIC) 5 Take 5 mg by mouth 0 05/05/2022 mg tablet daily. oxyCODONE (ROXICODONE) Take 1 tablet (5 mg 18 tablet 0 03/2104/28/2022 5 mg immediate release total) by mouth tabletIndications: every 4 (four) hours Acute Pain as needed for pain Indication: Acute Pain. potassium chloride Take 2 tablets (40 28 tablet 0 2 04/28/2022 (KLOR-CON M/KDUR) 20 mEq total) by mouth mEq ER tablet 2 (two) times a day with meals for 7 days. predniSONE (DELTASONE) Take 1-4 tablets 120 tablet 1 022 05/02/2022 5 mg tablet (5-20 mg total) by mouth daily. 04/11-04/28: 4 tabs, 04/29-05/05: 3 tabs, 05/06-05/12: 2 tabs, 05/13 and after: 1 tab daily sennosides-docusate Take 1-2 tablets by 100 tablet 0 022 04/28/2022 sodium (Senna with mouth 2 (two) times Docusate Sodium) 8.6-50 a day. Take while on mg per tablet any narcotics, or for constipation. Stop for diarrhea. sulfamethoxazole-trimet Take 1 tablet by 30 tablet 5 202104/28/2022 hoprim (BACTRIM,SEPTRA) mouth 3 (three) 400-80 mg per tablet times a week. Stop date: 10/08/22. Dose adjusted based on renal function. tacrolimus (PROGRAF) 1 Take 3 capsules (3 180 capsule 1 09/202105/02/2022 mg capsule mg total) by mouth every 12 (twelve) hours. Dose may change based on levels. valGANciclovir Take 1 tablet (450 30 tablet 2 04/10/2022 (VALCYTE) 450 mg tablet mg total) by mouth 3 (three) times a week. Dose may be adjusted based on kidney function. Stop date: 07/08/22 documented as of this encounter Plan of Treatment Upcoming Encounters Date Type Specialty Care Team Description 06/01/2022 Telemedicine Pharmacy An Nicholas APRN, C.NDoc, D.N.P., M.S.N. [address] [place] [address] [phone] (Nicolas rk) 07/31/2022 Lab Laboratory Medicine Tony Rubalcava M. B., ChBurke, MDebra [address] [place] [address] [phone] (Wo rk) 07/31/2022 Lab Laboratory Medicine Tony Rubalcava M. B., Sydnie, [place] [address] [place] [address] [phone] (Wo rk) 07/31/2022 Office Visit Transplant Tony Rubalcava M.B., ChBurke, MDebra [address] [place] [address] [phone] (Wo rk) 07/31/2022 Appointment Radiology Tony Rubalcava M.B., ChDaviBDavi, MDebra [address] [place] [address] [phone] (Wo rk) 08/01/2022 Office Visit Transplant Tony Rubalcava M.B., ChBurke, MDebra [address] [place] [phone] (Wo rk) 08/01/2022 Clinical Support Transplant Tony Rubalcava M.B., ChBurke, MDebra [address] [place] [address] [phone] (Wo rk) documented as of this encounter Procedures Procedure Name Priority Date/Time Associated Comments Diagnosis RENAL FUNCTION Routine 04/25/2022 8:12 AM Aftercare Results for this PANEL, S CDT Transplant Renal procedure a re in ([facility]) the results section. TACROLIMUS LEVEL, B Routine 04/25/2022 8:12 AM Aftercare Re sults for this CDT Transplant Renal procedure a re in ([facility]) the results section. CBC WITH Routine 04/25/2022 8:12 AM Aftercare Results f or this DIFFERENTIAL, B CDT Transplant Renal procedur e are in ([facility]) the results section. MAGNESIUM, S Routine 04/25/2022 8:12 AM Aftercare Results f or this CDT Transplant Renal procedure a re in ([facility]) the results section. documented in this encounter Results Tacrolimus, B (04/25/2022 8:12 AM CDT) athologist Signature Tacrolimus, B 8.0 5.0-15.0 04/25/2022 [facility] (Trough) 12:58 PM CDT ng/mL Comment: ----ADDITIONAL INFORMATION---- Target steady-state [...] performa nce characteristics determined by [facility] in a manner consistent with CLIA requirements. This test has not been cleared or approved by the U.S. Jina d and Drug Administration. Specimen Anatomical Collection Method Collection Time Receive d Time (Source) Location / / Volume Laterality Blood (Blood, 04/25/2022 8:12 AM 04/25/20 9:59 Venous) CDT AM CDT Jeni Cantrell M.D. LAB BLOOD NON ADD-ON Performing Organization Address City/State/ZIP Code Phon e Number [facility] [address] [place], [place] [address] SUPPORT CENTER [facility] Laboratories - [place], [place] [id number] [place] [address] [place] [address] Dr. [place] (ABNORMAL) Magnesium (04/25/2022 8:12 AM CDT) P athologist Signature Magnesium, S 1.5 (L) 1.7 - 2.3 04/25/2022 DTL mg/dL 9:32 AM CDT Specimen Anatomical Collection Method Collection Time Receive d Time (Source) Location / / Volume Laterality Blood (Blood, 04/25/2022 8:12 AM 04/25/20 8:47 Venous) CDT AM CDT Jeni Cantrell M.D. LAB BLOOD ADD-ON Performing Organization Address City/State/ZIP Code Phon e Number [facility] - [address] [place], [place] [address] [facility] [place] [address] Laboratories-[facility] [address] (ABNORMAL) Renal Function Panel (04/25/2022 8:12 AM CDT) Analysis Performed At Patho logist [...] Phon e Number [facility] - [address] [place] [address] [facility] [place] [place] [address] [facility] 200 [facility] (ABNORMAL) CBC with Differential, Blood (04/25/2022 8:12 AM CDT) [facility] gist Method Time Signature Hemoglobin 10.0 (L) 11.6 - 04/25/2022 [facility] 15.0 g/dL 9:16 AM CDT Hematocrit 31.9 (L) 35.5 - 04/25/2022 [facility] 44.9 % 9:16 AM CDT Erythrocytes 3.32 (L) 3.92 - 04/25/2022 [facility] 5.13 9:16 AM CDT x10(12)/L MCV 96.1 78.2 - 04/25/2022 [facility] 97.9 fL 9:16 AM CDT RBC Distrib Width 15.0 12.2 - 04/25/2022 [facility] 16.1 % 9:16 AM CDT Platelet Count 121 (L) 157 - 371 04/25/2022 [facility] x10(9)/L 9:16 AM CDT Leukocytes 6.8 3.4 - 9.6 04/25/2022 [facility] x10(9)/L 9:16 AM CDT Neutrophils 5.06 1.56 - 04/25/2022 [facility] 6.45 9:16 AM CDT x10(9)/L Lymphocytes 1.46 0.95 - 04/25/2022 [facility] 3.07 9:16 AM CDT x10(9)/L Monocytes 0.25 (L) 0.26 - 04/25/2022 [facility] 0.81 9:16 AM CDT x10(9)/L Eosinophils 0.04 0.03 - 04/25/2022 [facility] 0.48 9:16 AM CDT x10(9)/L Basophils <0.03 0.01 - 04/25/2022 [facility] 0.08 9:16 AM CDT x10(9)/L Specimen Anatomical Collection Method Collection Time Receive d Time (Source) Location / / Volume Laterality Blood (Blood, 04/25/2022 8:12 AM 04/25/20 8:46 Venous) CDT AM CDT Jeni Cantrell M.D. LAB BLOOD ADD-ON Performing Organization Address City/State/ZIP Code Phon e Number [facility] - [address] [place], [place] [address] [place] [address] [facility] [address] documented in this encounter Visit Diagnoses Diagnosis Aftercare Transplant Renal (HCC) documented in this encounter Additional Health Concerns Assessment Noted Time PHQ-9 Depression Total Score: 3 04/07/2021 9:37 AM CDT documented as of this encounter Care Teams Cooker Soda Relationship Specialty Start Date End Date Elsewhere, Pcp PCP - General 09/17/19 [facility] External Provider Laboratory Medicine 04/25/22 documented as of this encounter
--- OUTSIDE RECORDS SUMMARY | 2022-05-25 12:59 | XMS_ITS | Encounter Summary ---
:1960 Author Organization [facility] Address [address] [place] [address] Care Team Providers Name Role Phone Elsewhere, Pcp Primary Care Provider Unavailable Reason for Referral Outpatient (Routine) - Authorized Specialty Diagnoses / Procedures Referred By Contact Refer red To Contact Diagnoses Transplant Renal (HCC) High Risk Medication Aftercare Transplant Renal (HCC) Immunodeficiency (HCC) Tony Rubalcava M.B., [facility] Procedures US Kidney Transplant Biopsy Left Mukund Otoole [address] [place] [address] Referral ID Status Reason Start Date Expiration Date Visits V isits Requested Authorized [id number] Authorized 04/25/2022 04/25/2023 1 1 ransplant (Routine) - Authorized Specialty Diagnoses / Procedures Referred By Contact Refer red To Contact [facility] Sydnie Burton M.D. [address] [place] [address] Referral ID Status Reason Start Date Expiration Date Visits V isits Requested Authorized [id number] Authorized 04/25/2022 04/24/2025 1 1 ransplant (Routine) - Authorized Specialty Diagnoses / Procedures Referred By Contact Refer red To Contact Transplant Surgery / Tony Rubalcava [facility] Transplant Micheal, Mukund Otoole [address] [place] [phone] Referral ID Status Reason Start Date Expiration Date Visits V isits Requested Authorized [id number] Authorized 04/25/2022 04/24/2025 1 1 Encounter Details Date Type Department Care Team Description 04/25/2022 Orders Only Ata Mcguire, Transp lant Renal (HCC) (Primary Dx); [facility], High Risk Medic ation; Transplantation and R.N., C.C.T. C. Aftercare Transplant Renal (HCC); Clinical Regeneration [address] [place] [address] Immunodeficiency (HCC) in [place], [place] [address] [place] [phone] [place], [place] [phone] (Work) [phone] Social History Tobacco Use Types Packs/Day Years [...] How often do you attend christian or adventist 1 to 4 times per year 12/23/2021 [...] place to sleep or slept in a longterm (including now)? Education Answer Date Recorded What [...] An Nicholas APRN, C.N.P., D.N.P., M.S.N. [address] [place] [address] [phone] (Nicolas wen) 07/31/2022 Lab Laboratory Medicine Tony Rubalcava M. B., ChBurke, M.D. [address] [place] [address] [phone] (Nicolas wen) 07/31/2022 Lab Laboratory Medicine Tony Rubalcava M. B., ChDaviBDavi, M.D. [address] [place] [address] [phone] (Nicolas wen) 07/31/2022 Office Visit Transplant Tony Rubalcava M.B., ChBurke, MElvia. [address] [place] [address] [phone] (Nicolas wen) 07/31/2022 Appointment Radiology Tony Rubalcava M.B., Mukund Otoole 200 [place], [place] [phone] (Wo rk) 08/01/2022 Office Visit Transplant Tony Rubalcava M.B., Mukund Otoole 200 [place], [place] [phone] (Wo behzad) 08/01/2022 Clinical Support Transplant Tony Rubalcava M.B., Mukund Otoole [address] [place], [place] [phone] (Wo rk) Scheduled Orders Name Type Priority Associated Order Schedule Diagnoses CBC with Differential, Lab Routine Transplant Renal E xpected: Blood ([facility]) 08/07/2022, High Risk Expires: Medication 07/25/2023 Aftercare Transplant Renal (HCC) Immunodeficiency (HCC) Prothrombin Time (PT) Lab Routine Transplant Renal Ex pected: ([facility]) 08/07/2022, High Risk Expires: Medication 07/25/2023 Aftercare Transplant Renal (HCC) Immunodeficiency (HCC) APTT (Activated Lab Routine Transplant Renal Expected : Partial Thromboplastin ([facility]) 08/07/2022, Time) High Risk Expires: Medication 07/25/2023 Aftercare Transplant Renal (HCC) Immunodeficiency (HCC) Comprehensive Lab Routine Transplant Renal Expected: Metabolic Panel ([facility]) 08/07/2022, High Risk Expires: Medication 07/25/2023 Aftercare Transplant Renal (HCC) Immunodeficiency (HCC) Magnesium Lab Routine Transplant Renal Expected: ([facility]) 08/07/2022, High Risk Expires: Medication 07/25/2023 Aftercare Transplant Renal (HCC) Immunodeficiency (HCC) Phosphorus Inorganic Lab Routine Transplant Renal Exp ected: ([facility]) 08/07/2022, High Risk Expires: Medication 07/25/2023 Aftercare Transplant Renal (HCC) Immunodeficiency (HCC) Lipid Panel Lab Routine Transplant Renal Expected: ([facility]) 08/07/2022, High Risk Expires: Medication 07/25/2023 Aftercare Transplant Renal (HCC) Immunodeficiency (HCC) Troponin T, 5th Lab Routine Transplant Renal Expected : Generation ([facility]) 08/07/2022, High Risk Expires: Medication 07/25/2023 Aftercare Transplant Renal ([facility]) Immunodeficiency ([facility]) HLA Class I SAB Lab HLA Routine Transplant Renal Expected : Antibody Screen ([facility]) 08/07/2022, High Risk Expires: Medication 07/25/2023 Aftercare Transplant Renal ([facility]) Immunodeficiency ([facility]) HLA Class II SAB Lab HLA Routine Transplant Renal Expecte d: Antibody Screen ([facility]) 08/07/2022, High Risk Expires: Medication 07/25/2023 Aftercare Transplant Renal ([facility]) Immunodeficiency (HCC) 25-Hydroxyvitamin D2 Lab Routine Transplant Renal Exp ected: and D3 ([facility]) 08/07/2022, High Risk Expires: Medication 07/25/2023 Aftercare Transplant Renal ([facility]) Immunodeficiency ([facility]) BKV DNA Detect/Quant Microbiology Routine Transplant Renal Exp ected: ([facility]) 08/07/2022, High Risk Expires: Medication 07/25/2023 Aftercare Transplant Renal ([facility]) Immunodeficiency (HCC) Zelaya/Kid 5cc Storage, B Lab Routine Transplant Renal E xpected: ([facility]) 08/07/2022, High Risk Expires: Medication 07/25/2023 Aftercare Transplant Renal ([facility]) Immunodeficiency (HCC) Zelaya/Kid 10cc Storage, Lab Routine Transplant Renal Ex pected: B ([facility]) 08/07/2022, High Risk Expires: Medication 07/25/2023 Aftercare Transplant Renal ([facility]) Immunodeficiency (HCC) Zelaya/Kid Storage, Urine Lab Routine Transplant Renal E xpected: ([facility]) 08/07/2022, High Risk Expires: Medication 07/25/2023 Aftercare Transplant Renal ([facility]) Immunodeficiency ([facility]) BKV DNA Detect/Quant, Microbiology Routine Transplant Renal Ex pected: Urine ([facility]) 08/07/2022, High Risk Expires: Medication 07/25/2023 Aftercare Transplant Renal ([facility]) Immunodeficiency (HCC) Zelaya/Kid Storage, Urine Lab Routine Transplant Renal E xpected: ([facility]) 08/07/2022, High Risk Expires: Medication 07/25/2023 Aftercare Transplant Renal ([facility]) Immunodeficiency ([facility]) Gram Stain, Urine Lab Routine Transplant Renal Expect ed: ([facility]) 08/07/2022, High Risk Expires: Medication 07/25/2023 Aftercare Transplant Renal (HCC) Immunodeficiency (HCC) Bacterial Culture, Microbiology Routine Transplant Renal Expec rebecca: Aerobic + Susc, Urine ([facility]) 08/07/2022, High Risk Expires: Medication 07/25/2023 Aftercare Transplant Renal (HCC) Immunodeficiency (HCC) Hemoglobin A1c Lab Routine Transplant Renal Expected: ([facility]) 08/07/2022, High Risk Expires: Medication 07/25/2023 Aftercare Transplant Renal (HCC) Immunodeficiency (HCC) Tacrolimus, B Lab Routine Transplant Renal Expected: ([facility]) 08/07/2022, High Risk Expires: Medication 07/25/2023 Aftercare Transplant Renal (HCC) Immunodeficiency (HCC) Mycophenolic Acid Lab Routine Transplant Renal Expect ed: ([facility]) 08/07/2022, High Risk Expires: Medication 07/25/2023 Aftercare Transplant Renal (HCC) Immunodeficiency (HCC) Urinalysis with Lab Routine Transplant Renal Expected : Microscopic: Urine, ([facility]) 08/07/2022, Voided High Risk Expires: Medication 07/25/2023 Aftercare Transplant Renal (HCC) Immunodeficiency (HCC) US Kidney Transplant Imaging RAD - Routine Transplant Renal Ex pected: Biopsy Left (most inpatients ([facility]) 08/07/2022, and all High Risk Expires: outpatients) Medication 07/25/2023 Aftercare Transplant Renal (HCC) Immunodeficiency (HCC) Scheduled Referrals Name Type Priority Associated Order Schedule Diagnoses Transplant Kidney Outpatient Referral Routine Exp ected: office visit 08/07/2022, (clinic) Expires: 07/25/2023 Transplant Kidney Outpatient Referral Routine Exp ected: office visit 08/07/2022, (clinic) Expires: 07/25/2023 documented as of this encounter Visit Diagnoses Diagnosis Transplant Renal (HCC) - Primary High Risk Medication Aftercare Transplant Renal (HCC) Immunodeficiency (HCC) documented in this encounter Additional Health Concerns Assessment Noted Time PHQ-9 Depression Total Score: 3 04/07/2021 9:37 AM CDT documented as of this encounter Care Teams Director Financial Systems Relationship Specialty Start Date End Date Elsewhere, Pcp PCP - General 09/17/19 [facility] External Provider Laboratory Medicine 04/25/22 documented as of this encounter
--- OUTSIDE RECORDS SUMMARY | 2022-05-25 12:59 | XMS_ITS | Encounter Summary ---
:1960 Author Organization [facility] Address [address] [place] [address] Care Team Providers Name Role Phone Elsewhere, Pcp Primary Care Provider Unavailable Reason for Visit Transplant (Routine) - Closed Specialty Diagnoses / Procedures Referred By Contact Refer red To Contact Transplant Surgery / [facility] Transplant Ayan Moses M.D. [address] [place] [address] Referral ID Status Reason Start Date Expiration Date Visits Requ ested Visits Authorized [id number] Closed 04/26/2022 04/25/2025 1 1 Encounter Details Date Type Department Care Team Description 04/28/2022 Office Visit Ata Bray, Hyperl ipidemia (Primary Dx); Center for Tony Belle, Immunodeficienc y (HCC); Transplantation and M.B., Ch.B., Transpla nt Renal (HCC); Clinical Regeneration MDebra Hypomagnesemia; in [facility] manager finance [address] [facility] Hypophosphatemia [address] [place] [phone] Social History Tobacco Use Types Packs/Day Years [...] 12/23/2021 relatives? How often do you attend restoration or latter-day 1 to 4 times per year 12/23/2021 services? Do you belong to any clubs or organizations such No 12/23/2021 as restoration groups, unions, fraternal or athletic groups, or [...] ??F) 04/28/2022 2:50 PM CDT Respiratory Rate - - Oxygen Saturation - - Inhaled Oxygen Concentration - - Weight 97.1 kg (214 lb 1.1 oz) 04/28/2022 2:50 PM CDT Height - - Body Mass Index 37.09 04/28/2022 12:00 PM CDT documented in this encounter Progress Notes Jeovanny Mcdonald APRN, C.N.P., M.S.N. - 04/28/2022 4:30 PM CDT Kidney/Pancreas Transplant Progress Note SUBJECTIVE ESRD Cause: Unknown etiology Date of Transplant: 04/06/2022 Retransplant: yes Type of Transplant: Donor Kidney Transplant Location: left iliac fossa; stent not attached HLA mismatch: 0/6 Crossmatch: T negative B negative DSA at time of transplant with MFI: none CMV: Donor: negative / Recipient: positive EBV: Donor: positive / Recipient: positive Induction Agent: Basiliximab Maintenance Immunosuppression: Tacrolimus, CellCept, Prednisone (standard taper) Anti-infective prophylaxis: Valcyte x 3 months, renally dosed, Bactrim x 6 months DDK: yes PHS increased risk: no. Donor information: Warm ischemia time 39 minutes, cold ischemia time 31 hours 6 minutes. KDPI 60%. 53-year-old female with blood group O. HPI: Ms. Wray is a 61 y.o. female who underwent a kidney donor transplant on 04/06/2022. Patient has a history of ESRD secondary to Unknown etiology and was on dialysis prior to transplant. Post transplant hospital course was significant for slow graft function. Patient was discharged from the hospital on 04/09/2022 with a creatinine of 7.22 mg/dl. 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 Patient returns today for close post-transplant monitoring. She reports feeling well overall. She had her ureteric stent removed yesterday and tolerated this well. She denies fever, chills, dysuria, hematuria, nausea, or vomiting. OBJECTIVE VITAL SIGNS Height: [161.8 cm] 161.8 cm Weight: [97.1 kg] 97.1 kg BSA (Calculated - sq m): [2.09 sq meters] 2.09 sq meters BMI (Calculated): [37.1 kg/m??] 37.1 kg/m?? General: awake, alert, oriented, in no acute distress Lung: breathing is unlabored Abdomen: abdominal exam was deferred today. 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 Iothalamate clearance pending today. 24 hour urine protein was 715 mg/24 hr. We will continue to monitor #3 Incision/urinary Incision looks great with no sign of infection or leaking. Patient had a cystoscopy with dual stent removal yesterday. Patient's urine obtained on 04/27 is growing Aerococcus urinae however patient is without pyuria. Weplan to repeat a UA/UC locally in a week. #4 Immunosuppression, Basiliximab induction Maintenance immunosuppression includes tacrolimus, MMF, and steroids. Tacrolimus trough goal 8-10 first month and 6-8 thereafter. Obtain tacrolimus level with routine lab work next week #5 Infection prophylaxis, CMV: D-/ R+, EBV D+/R+ Continue Valcyte x3 month, Bactrim x6 month. We will increase her bactrim and valcyte to daily dosing. #6 Hypertension #7 hyperlipidemia Blood pressure elevated at 152/93 today. She remains on Bystolic 5 mg daily. I have asked her to continue to monitor her blood pressure the next few weeks and send us a message of her readings. She remains on rosuvastatin. #8 Hypokalemia K+ at 5.0 today. 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 #13 Prior history of malignant melanoma Superficial, removed 2 3 years ago She received basiliximab induction due to the previous history of malignancy Recommend follow-up with Dermatology at four month. #14 Disposition Patient is being dismissed from clinic today. She was seen by Dr. Rubalcava. Associated attestation - Tony Rubalcava M.B., Ch.B., M.D. - 05/06/2022 12:52 PM CDT I personally saw and evaluated the patient. I reviewed the history, physical exam and plan of care documented by Harry and agree with his documentation FOLLOW UP Next office visit: 4 months post transplant Tests for follow-up visit (in addition to standard tests): nil Laboratory monitoring frequency: Per early post transplant protocol Nonstandard monitoring labs: nil Tacrolimus goal trough: 8-10 for first post transplant month then 6-8 Other: documented in this encounter Plan of Treatment Upcoming Encounters Date Type Specialty Care Team Description 06/01/2022 Telemedicine Pharmacy An Nicholas APRN C.N.PDavi, D.N.P., M.S.N. [address] [place] [phone] (Wo rk) 07/31/2022 Lab Laboratory Medicine Tony Rubalcava M. B., Sydnie, Mukund [address] [place] [address] [phone] (Wo rk) 07/31/2022 Lab Laboratory Medicine Tony Rubalcava M. B., ChBurke, Mukund [address] [place] [phone] (Wo rk) 07/31/2022 Office Visit Transplant Tony Rubalcava M.B., Sydnie, MDebra [address] [place] [phone] (Wo rk) 07/31/2022 Appointment Radiology Tony Rubalcava M.B., ChBurke, MDebra [address] [place] [address] [phone] (Wo rk) 08/01/2022 Office Visit Transplant Tony Rubalcava M.B., Sydnie, MDebra [address] [place] [address] [phone] (Wo rk) 08/01/2022 Clinical Support Transplant Tony Rubalcava M.B., Sydnie, MDebra [address] [place] [address] [phone] (Wo rk) documented as of this encounter Visit Diagnoses Diagnosis Hyperlipidemia - Primary Immunodeficiency (HCC) Transplant Renal (HCC) Hypomagnesemia Hypophosphatemia documented in this encounter Additional Health Concerns Assessment Noted Time PHQ-9 Depression Total Score: 3 04/07/2021 9:37 AM CDT documented as of this encounter Care Teams Newspaper Distributor Supervisor Relationship Specialty Start Date End Date Elsewhere, Pcp PCP - General 09/17/19 [facility] External Provider Laboratory Medicine 04/25/22 documented as of this encounter
--- OUTSIDE RECORDS SUMMARY | 2022-05-25 12:59 | XMS_ITS | Encounter Summary ---
:1960 Author Organization [facility] Address [address] [place] [address] Care Team Providers Name Role Phone Elsewhere, Pcp Primary Care Provider Unavailable Encounter Details Date Type Department Care Team Description 05/01/2022 Orders Only [facility] Silvia [facility] [place] Cristo Mcdonald for Transplantation and Milli WHITE N.P., M.S.N. Clinical Regeneration in [address] [place] [address] [place] [phone] [place] [address] [phone] Social History Tobacco Use Types Packs/Day Years [...] How often do you attend sikhism or mu-ism 1 to 4 times per [...] place to sleep or slept in a residential (including now)? Education Answer Date Recorded What [...] An Nicholas APRN, C.N.P., D.N.P., M.S.N. [address] [place] [phone] (Nicolas wen) 07/31/2022 Lab Laboratory Medicine Tony Rubalcava M. B., ChDaviBDavi, M.D. [address] [place] [phone] (Nicolas wen) 07/31/2022 Lab Laboratory Medicine Tony Rubalcava M. B., ChDaviBDavi, M.D. [address] [place] [phone] (Nicolas wen) 07/31/2022 Office Visit Transplant Tony Rubalcava M.B., ChBurke, MElvia. [address] [place] [phone] (Nicolas wen) 07/31/2022 Appointment Radiology Tony Rubalcava M.B., Mukund Otoole [address] [place] [phone] (Wo rk) 08/01/2022 Office Visit Transplant Tony Rubalcava M.B., Mukund Otoole [address] [place] [address] [phone] (Wo behzad) 08/01/2022 Clinical Support Transplant Tony Rubalcava M.B., Mukund Otoole [address] [place] [address] [phone] (Nicolas wen) documented as of this encounter Visit Diagnoses Not on filedocumented in this encounter Additional Health Concerns Assessment Noted Time PHQ-9 Depression Total Score: 3 04/07/2021 9:37 AM CDT documented as of this encounter Care Teams Alum Plant Operator Relationship Specialty Start Date End Date Elsewhere, Pcp PCP - General 09/17/19 [facility] External Provider Laboratory Medicine 04/25/22 documented as of this encounter
--- OUTSIDE RECORDS SUMMARY | 2022-05-25 12:59 | XMS_ITS | Encounter Summary ---
:1960 Author Organization [facility] Address [address] [place] [address] Care Team Providers Name Role Phone Elsewhere, Pcp Primary Care Provider Unavailable Encounter Details Date Type Department Care Team Description 04/26/2022 Clinical Communication Ata Dick Guilherme, Rahda Neves, Center for M.D. Transplantation and [address] [place] [address] Clinical [facility] in [place], [place] [phone] [place] [address] [place] [address] (Work) [phone] Social History Tobacco Use Types Packs/Day Years [...] 12/23/2021 relatives? How often do you attend pentecostalism or restorationist 1 to 4 times per year 12/23/2021 services? Do you belong to any clubs or organizations such No 12/23/2021 as pentecostalism groups, unions, fraternal or athletic groups, or [...] An Nicholas APRN C.N.P., D.N.P., M.S.N. [address] [place] [address] [phone] (Wo rk) 07/31/2022 Lab Laboratory Medicine Tony Rubalcava M. B., ChBurke, MDebra [address] [place] [address] [phone] (Wo rk) 07/31/2022 Lab Laboratory Medicine Tony Rubalcava M. B., Sydnie, MDebra [address] [place] [address] [phone] (Wo rk) 07/31/2022 Office Visit Transplant Tony Rubalcava M.B., Sydnie, MDebra [address] [place] [address] [phone] (Wo rk) 07/31/2022 Appointment Radiology Tony Rubalcava M.B., ChMukund Turk 200 [facility] [place], [place] [phone] (Wo rk) 08/01/2022 Office Visit Transplant Tony Rubalcava M.B., Mukund Otoole 200 [place], [place] [phone] (Wo rk) 08/01/2022 Clinical Support Transplant Tony Rubalcava M.B., Mukund Otoole 200 [place], [place] [phone] (Wo rk) documented as of this encounter Results Tacrolimus, B (05/08/2022 10:00 AM CDT) athologist Signature Tacrolimus, B 8.0 5.0-15.0 05/16/2022 [facility] (Trough) 10:26 AM CDT ng/mL Comment: ----ADDITIONAL [...] performa nce characteristics determined by [facility] in a manner consistent with CLIA requirements. [...] Organization Address City/State/ZIP Code Phon e Number [facility] [address] [place] [address] [place] [address] Laboratories [place] [id number] [place] [address] [place] documented in this encounter Visit Diagnoses Diagnosis Transplant Renal (HCC) - Primary documented in this encounter Additional Health Concerns Assessment Noted Time PHQ-9 Depression Total Score: 3 04/07/2021 9:37 AM CDT documented as of this encounter Care Teams Music Education Adjunct Professor Relationship Specialty Start Date End Date Elsewhere, Pcp PCP - General 09/17/19 [facility] External Provider Laboratory Medicine 04/25/22 documented as of this encounter
--- OUTSIDE RECORDS SUMMARY | 2022-05-25 12:59 | XMS_ITS | Encounter Summary ---
:1960 Author Organization [facility] Address [address] [place] [address] Care Team Providers Name Role Phone Elsewhere, Pcp Primary Care Provider Unavailable Reason for Referral Outpatient (Routine) - Closed Specialty Diagnoses / Procedures Referred By Contact Refer red To Contact Diagnoses Stent Ureteral Indwelling An Nicholas APRN, [facility] Procedures Cysto w/stent removal C.N.P., D.N.P., M.S.N. [address] [place] [address] Referral ID Status Reason Start Date Expiration Date Visits Requ ested Visits Authorized [id number] Closed 04/27/2022 04/27/2023 1 1 Reason for Visit Outpatient (Routine) - Canceled Specialty Diagnoses / Procedures Referred By Contact Refer red To Contact Diagnoses Transplant Renal (HCC) An Nicholas APRN, [facility] Procedures URO Cystoscopy (general) C.N.P., D.N.P., M.S.N. [address] [place] [phone] Referral ID Status Reason Start Date Expiration Date Visits V isits Requested Authorized [id number] Canceled 04/07/2022 04/07/2023 1 1 Encounter Details Date Type Department Care Team Description 04/27/2022 Procedure visit Department of An Nicholas APRN, C.N.P., D.N.P., M.S.N. [address] [place] [address] Stent Ureteral Indwelling (Primary Dx); Urology in Katherine Eduardo APRN, C.NDoc, D.N.P. [address] [place] [address] Transplant Renal (HCC) [place], [place] [address] [place] [address] Social History Tobacco Use Types Packs/Day Years [...] How often do you attend confucianism or amish 1 to 4 times per [...] place to sleep or slept in a fpc (including now)? Education Answer Date Recorded What is the highest level of school you have GED or equivale nt 01/26/2019 completed or the highest degree you have received? Sex Assigned at Date Recorded Female 12/23/2021 4:18 AM CDT documented as of this encounter Progress Notes Bharti [place] - 04/27/2022 8:30 AM CDT Patient was seen for a cystoscopy procedure. Cystoscope CYF-VH #[id number] was used during today's cystoscopy procedure. Accessories used: cystoscope reusable (sterilized) stop cock and stent grasper Load number from processing via [employer] Services: [id number] documented in this encounter Procedure Notes Katherine Eduardo APRN C.N.PDavi, D.N.P. - 04/27/2022 8:30 AM CDTAssociated Order(s): Cysto w/stent removal Pre-Procedure Diagnose(s): Stent Ureteral Indwelling Post-Procedure Diagnose(s): Stent Ureteral Indwelling Cysto w/stent removal Date/Time: 04/27/2022 9:07 AM Performed by: Katherine Eduardo APRN, C.N.P., D.N.P. Authorized by: An Nicholas APRN, C.N.P., D.N.P., M.S.N. Care team members present 1. Katherine Eduardo APRN, C.N.P., D.N.P. 2. Bharti [place] IMPRESSION foreign body Additional procedures performed: cystoscopy and stent removal PROCEDURE DETAILS Ureteral stent removed: Side performed: Transplant Removal: complex Reason for stent complexity: Dual ureteral stent removal CONSENT Consent obtained: verbal Consent given by: patient The benefits, risks and alternatives to the procedure and the potential need for sedation or anesthesia as well as the names, roles, and responsibilities of healthcare team members performing significant interventional tasks were discussed with the patient and/or decision maker. UNIVERSAL PROTOCOL All relevant documentation and testing were reviewed and available. All required blood products, implants, devices and or special equipment were made available as applicable. Pre-procedure verificationwas conducted and the correct site was marked if required. A fire risk assessment was done as applicable. The procedural time-out to verify correct patient, correct side/site, and procedure was conducted prior to performing the procedure and confirmed in a procedural pause. PRE-PROCEDURE DETAILS Procedure purpose: Diagnostic Appropriate hand hygiene, gown, cap, mask, protective eyewear, sterile gloves, skin preparation, sterile drape, and strict aseptic technique were utilized as applicable for the procedure.: yes Site preparation: Povidone-iodine SEDATION / ANESTHESIA Anesthesia method: none POST-PROCEDURE DETAILS Procedure completed successfully: yes Complications: no apparent complications documented in this encounter Plan of Treatment Upcoming Encounters Date Type Specialty Care Team Description 06/01/2022 Telemedicine Pharmacy An Nicholas APRN, C.N.P., D.N.P., M.S.N. [address] [place] [phone] (Nicolas wen) 07/31/2022 Lab Laboratory Medicine Tony Rubalcava M. B., ChBurke, MDebra [address] [place] [phone] (Nicolas wen) 07/31/2022 Lab Laboratory Medicine Tony Rubalcava M. B., ChBurke, MDebra [address] [place] [phone] (Nicolas wen) 07/31/2022 Office Visit Transplant Tony Rubalcava M.B., Sydnie, MDebra [address] [place] [phone] (Nicolas wen) 07/31/2022 Appointment Radiology Tony Rubalcava M.B., Mukund [place] [address] [place], [place] [phone] (Wo rk) 08/01/2022 Office Visit Transplant Tony Rubalcava M.B., Mukund [place] [address] [place], [place] [phone] (Wo rk) 08/01/2022 Clinical Support Transplant Tony Rubalcava M.B., Mukund [place] [address] [place], [place] [phone] (Wo rk) documented as of this encounter Procedures Procedure Name Priority Date/Time Associated Comments Diagnosis BACTERIAL CULTURE, Routine 04/27/2022 9:31 AM Stent Ureteral R esults for this AEROBIC + SUSC, CDT Indwelling procedure ar e in URINE the results section. [place] CYSTHRSCPY RMVL Routine 04/27/2022 9:07 AM Stent Ureteral R esults for this FB/STENT CMPLX CDT Indwelling procedure are in the results section. documented in this encounter Results (ABNORMAL) Bacterial Culture, Aerobic + Susc, Urine (04/27/2022 9:31 AM CDT) Component Value Ref Test Analysis Performed At [facility] gist Range Method Time Signature Urine With [...] SUSCEPTIBILITY, MAYA (MCG/ML) < =1 mcg/mL: Susceptible Milli Evans APRNNDaviPDavi, Michelle.N.P., M.S.N. LAB MICRO BIOLOGY - GENERAL ORDERABLES Performing Organization Address City/State/ZIP Code Phon e Number [facility] [address] [place], [place] [address] [facility] [place] [address] [facility] [address] [place] CYSTHRSCPY RMVL FB/STENT CMPLX (04/27/2022 9:07 AM CDT) Specimen (Source) Anatomical Location Collection Method / Collectio n Time Received Time / Laterality Volume Narrative Katherine Eduardo APRN, C.N.PDavi, D.N.P. - 04/27/2022 9:07 AM CDT Katherine Eduardo APRN, C.N.P., Michelle.N.PDavi ? 04/27/2022 ??9:09 AM Cysto w/stent removal Date/Time: 04/27/2022 9:07 AM Performed by: Katherine Eduardo APRN, C .N.Donna, D.N.P. Authorized by: An Nicholas APRN, C .N.PDavi, Michelle.N.P., M.S.N. Care team members present 1. Katherine Eduardo APRN, C.NDoc, D.N. P. 2. Bharti [place] ?? foreign body Additional [...] APRN, C.N.P., D.N.P., M.S.N. UROLOGY O RDERABLES documented in this encounter Visit Diagnoses Diagnosis Stent Ureteral Indwelling - Primary Transplant Renal (HCC) documented in this encounter Additional Health Concerns Assessment Noted Time PHQ-9 Depression Total Score: 3 04/07/2021 9:37 AM CDT documented as of this encounter Care Teams Clinical Trial Leader Relationship Specialty Start Date End Date Elsewhere, Pcp PCP - General 09/17/19 [facility] External Provider Laboratory Medicine 04/25/22 documented as of this encounter
--- OUTSIDE RECORDS SUMMARY | 2022-05-25 12:59 | XMS_ITS | Encounter Summary ---
:1960 Author Organization [facility] Address [address] [place] [address] Care Team Providers Name Role Phone Elsewhere, Pcp Primary Care Provider Unavailable Reason for Visit Reason Comments Prior Auth for Tacrolimus Encounter Details Date Type Department Care Team Description 05/01/2022 Clinical Ata Peralta, Prior Auth for [facility], Tacrolimus Transplantation and M.S.N., R.N. Clinical Regeneration [phone] [facility] [address] [place] [address] Social History Tobacco Use Types Packs/Day Years [...] 12/23/2021 relatives? How often do you attend jain or mandaen 1 to 4 times per year 12/23/2021 services? Do you belong to any clubs or organizations such No 12/23/2021 as jain groups, unions, fraternal or athletic groups, or [...] this encounter Miscellaneous Notes Telephone Encounter - FelisaElena Josué - 05/01/2022 10:17 AM CDT Rae called in regarding prior auth they sent on last week for pt s Tacrolimus. Please call back ot fax them back. Reference number: [id number] Store Number: [id number] Phone number: documented in this encounter Plan of Treatment Upcoming Encounters Date Type Specialty Care Team Description 06/01/2022 Telemedicine Pharmacy An Nicholas APRN, C.N.P., D.N.P., M.S.N. [address] [place] [phone] (Wo rk) 07/31/2022 Lab Laboratory Medicine Tony Rubalcava M. B., ChBurke, MElvia. [address] [place] [phone] (Wo rk) 07/31/2022 Lab Laboratory Medicine Tony Rubalcava M. B., ChBurke, MDebra [address] [place] [phone] (Wo rk) 07/31/2022 Office Visit Transplant Tony Rubalcava M.B., Sydnie, Mukund [address] [place] [phone] (Wo rk) 07/31/2022 Appointment Radiology Tony Rubalcava M.B., Sydnie, Mukund [address] [place] [phone] (Wo rk) 08/01/2022 Office Visit Transplant Tony Rubalcava M.B., Sydnie, Mukund [address] [place] [address] [phone] (Wo rk) 08/01/2022 Clinical Support Transplant Tony Rubalcava M.B., Sydnie, MDebra [address] [place] [phone] (Wo rk) documented as of this encounter Visit Diagnoses Not on filedocumented in this encounter Additional Health Concerns Assessment Noted Time PHQ-9 Depression Total Score: 3 04/07/2021 9:37 AM CDT documented as of this encounter Care Teams Admittance Attendant Relationship Specialty Start Date End Date Elsewhere, Pcp PCP - General 09/17/19 [facility] External Provider Laboratory Medicine 04/25/22 documented as of this encounter
--- OUTSIDE RECORDS SUMMARY | 2022-05-25 12:59 | XMS_ITS | Encounter Summary ---
:1960 Author Organization [facility] Address [address] [place] [address] Care Team Providers Name Role Phone Elsewhere, Pcp Primary Care Provider Unavailable Reason for Visit Transplant (Routine) - Closed Specialty Diagnoses / Procedures Referred By Contact Refer red To Contact Transplant Surgery / Diagnoses [facility] Mukund Gomez [address] [place] [phone] Referral ID Status Reason Start Date Expiration Date Visits Requ ested Visits Authorized [id number] Closed 04/19/2022 04/19/2023 1 1 Encounter Details Date Type Department Care Team Description 04/25/2022 Nurse Only Ata horton [facility] Patricia garcia M.D. [address] [place] [phone] for Transplantation and Sandra Peterson R.N., C.C.T.CDavi [address] [place] [phone] Clinical Regeneration in [place], [place] [address] [place] [phone] Social History Tobacco Use Types Packs/Day [...] 12/23/2021 relatives? How often do you attend zoroastrian or moravian 1 to 4 times per year 12/23/2021 services? Do you belong to any clubs or organizations such No 12/23/2021 as zoroastrian groups, unions, fraternal or athletic groups, or [...] documented as of this encounter Progress Notes Sandra Peterson R.N., C.C.T.C. - 04/25/2022 2:30 PM CDT Discussed lab tests, tacrolimus levels, mycophenolic acid levels, BK virus monitoring, baseline visit with local physician, activity restrictions and expectations, OTC medication use, drug/drug and drug/food interactions, SBE prophylaxis, alcohol use, communicable disease exposure, sun exposure/protect ion, vital sign monitoring, 4 month return with biopsy and annual evaluations therefore, some of those years requiring biopsy. Reviewed steroid taper and stop dates for protocol prophylactic medications. Contact phone numbers reviewed. Discussed dates for lab tests, stop/change dates for prophylactic medications, and clinic return dates. Given instruction letter and copy of lab recommendation letter.All questions and concerns addressed. Patient states understanding of information. No barriers to learning identified. Sandra Peterson R.N., Ora RN Classer documented in this encounter Plan of Treatment Upcoming Encounters Date Type Specialty Care Team Description 06/01/2022 Telemedicine Pharmacy An Nicholas APRN C.N.P., D.N.P., M.S.N. [address] [place] [phone] (Wo rk) 07/31/2022 Lab Laboratory Medicine Tnoy Rubalcava M. B., Sydnie, MDebra [address] [place] [phone] (Wo rk) 07/31/2022 Lab Laboratory Medicine Tony Rubalcava M. B., Sydnie, Mukund [address] [place] [phone] (Wo rk) 07/31/2022 Office Visit Transplant Tony Rubalcava M.B., Sydnie, MDebra [address] [place] [phone] (Wo rk) 07/31/2022 Appointment Radiology Tony Rubalcava M.B., Sydnie, Mukund [address] [place] [address] [phone] (Wo rk) 08/01/2022 Office Visit Transplant Tony Rubalcava M.B., Sydnie, MDebra [address] [place] [phone] (Wo rk) 08/01/2022 Clinical Support Transplant Tony Rubalcava M.B., Sydnie, Shashi. [address] [place], [place] [phone] (Wo rk) documented as of this encounter Visit Diagnoses Diagnosis Transplant Renal (HCC) documented in this encounter Additional Health Concerns Assessment Noted Time PHQ-9 Depression Total Score: 3 04/07/2021 9:37 AM CDT documented as of this encounter Care Teams Code Enforcement Inspector Relationship Specialty Start Date End Date Elsewhere, Pcp PCP - General 09/17/19 [facility] External Provider Laboratory Medicine 04/25/22 documented as of this encounter
--- OUTSIDE RECORDS SUMMARY | 2022-05-25 12:59 | XMS_ITS | Encounter Summary ---
:1960 Author Organization [facility] Address 200 [place] [address] Care Team Providers Name Role Phone Elsewhere, Pcp Primary Care Provider Unavailable Reason for Referral Transplant (Routine) - Closed Specialty Diagnoses / Procedures Referred By Contact Refer red To Contact Transplant Surgery / [facility] Transplant Ayan Moses M.D. 200 [place] [address] Referral ID Status Reason Start Date Expiration Date Visits Requ ested Visits Authorized [id number] Closed 04/26/2022 04/25/2025 1 1 Reason for Visit Transplant (Routine) - Closed Specialty Diagnoses / Procedures Referred By Contact Alva red To Contact Transplant Surgery / Jeni Cantrell Rocheste r [facility] Jordan Duval [address] [place] [address] Referral ID Status Reason Start Date Expiration Date Visits Requ ested Visits Authorized [id number] Closed 04/21/2022 04/20/2025 1 1 Encounter Details Date Type Department Care Team Description 04/26/2022 Office Visit Ata Bray, Katherine espana Renal (HCC) (Primary Dx); Center for Tony Belle, Immunodeficienc y (HCC); Transplantation and M.B., Ch.B., Smoking Tobacco Use Personal History; Clinical Regeneration MDebra Depression Major One Episode Full Remiss ion (HCC); 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 200 [facility] Failure Renal End Stage (HCC) 200 [place] [phone] Social History Tobacco Use Types Packs/Day Years [...] How often do you attend christianity or anabaptist 1 to 4 times per year 12/23/2021 [...] Sign Reading Time Taken Comments Blood Pressure 144/78 04/26/2022 11:47 AM CDT Pulse 79 04/26/2022 11:47 AM CDT Temperature 36.3 ??C (97.3 ??F) 04/26/2022 11:47 AM CDT Respiratory Rate - - Oxygen Saturation - - Inhaled Oxygen Concentration - - Weight 97 kg (213 lb 13.5 oz) 04/26/2022 11:47 AM CDT Height - - Body Mass Index 35.46 04/11/2022 8:23 AM CDT documented in this encounter Progress Notes Ayan Mast M.D. - 04/26/2022 11:30 AM CDT Images from the original note were not included. Kidney/Pancreas Transplant Progress Note SUBJECTIVE ESRD Cause: [...] 6 months DDK: yes PHS increased risk: no HPI: Ms. Wray is a 61 y.o. female who underwent a kidney donor transplant on 04/06/2022. Patient has a history of ESRD secondary to Unknown etiology and was on dialysis prior to transplant. Post transplant hospital course was slow graft function. Patient was discharged from the hospital on 04/09 with a creatinine of 7.22 mg/dl. 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 Donor information: Warm ischemia time 39 minutes, cold ischemia time 31 hours 6 minutes. KDPI 60%. 53-year-old female with blood group O. Patient returns today for close post-transplant monitoring; she continues to recover well. Reports some diarrhea over past 5 days, non bloody. No fever chills or abd pain, no new rashes. She has good energy level. Current Outpatient Medications on File Prior to Visit Medication Sig Dispense Refill acetaminophen (TYLENOL) 325 mg tablet Take 2 tablets (650 mg total) by mouth every 6 (six) hours asneeded for pain. Do not exceed 3000mg in 24 hours. 100 tablet 0 gabapentin (NEURONTIN) 100 mg capsule TAKE 3 CAPSULES BY MOUTH IN THE MORNING AND 2 CAPSULES IN THEEVENING 450 capsule 3 hydrocortisone (for_HYTONE) 2.5 % cream Apply 1 application topically daily as needed (Eczema). magnesium oxide (MAG-OX) 400 mg (241.3 mg magnesium) tablet Take 2 tablets (800 mg total) by mouth every morning before breakfast. 60 tablet 0 multivitamin tablet Take 1 tablet by mouth daily. 30 tablet 3 mycophenolate (CELLCEPT) 250 mg capsule Take 3 capsules (750 mg total) by mouth every 12 (twelve) hours. Take medication on an empty stomach. Do not break, cut, or open capsules. 180 capsule 1 nebivoloL (BYSTOLIC) 5 mg tablet Take 5 mg by mouth daily. pantoprazole (PROTONIX) 40 mg EC tablet Take 1 tablet (40 mg total) by mouth every morning before breakfast. 30 tablet 0 potassium chloride (KLOR-CON M/KDUR) 20 mEq ER tablet Take 2 tablets (40 mEq total) by mouth 2 (two) times a day with meals for 7 days. 28 tablet 0 predniSONE (DELTASONE) 5 mg tablet Take 1-4 tablets (5-20 mg total) by mouth daily. 04/11-04/28: 4 tabs, 04/29-05/05: 3 tabs, 05/06-05/12: 2 tabs, 05/13 and after: 1 tab daily 120 tablet 1 rosuvastatin (CRESTOR) 5 mg tablet Take 1 tablet (5 mg total) by mouth at bedtime. 90 tablet 3 sertraline (ZOLOFT) 25 mg tablet Take 1 tablet (25 mg total) by mouth at bedtime. 90 tablet 3 sulfamethoxazole-trimethoprim (BACTRIM,SEPTRA) 400-80 mg per tablet Take 1 tablet by mouth 3 (three) times a week. Stop date: 10/08/22. Dose adjusted based on renal function. 30 tablet 5 tacrolimus (PROGRAF) 1 mg capsule Take 3 capsules (3 mg total) by mouth every 12 (twelve) hours. Dose may change based on levels. 180 capsule 1 valGANciclovir (VALCYTE) 450 mg tablet Take 1 tablet (450 mg total) by mouth 3 (three) times a week. Dose may be adjusted based on kidney function. Stop date: 07/08/22 30 tablet 2 oxyCODONE (ROXICODONE) 5 mg immediate release tablet Take 1 tablet (5 mg total) by mouth every 4 (four) hours as needed for pain Indication: Acute Pain. (Patient not taking: Reported on 04/26/2022) 18 tablet 0 sennosides-docusate sodium (Senna with Docusate Sodium) 8.6-50 mg per tablet Take 1-2 tablets by mouth 2 (two) times a day. Take while on any narcotics, or for constipation. Stop for diarrhea. (Patient not taking: Reported on 04/26/2022) 100 tablet 0 No current facility-administered medications on file prior to visit. OBJECTIVE VITAL SIGNS Temperature: [36.3 ??C] 36.3 ??C Blood Pressure: (144)/(78) 144/78 Weight: [97 kg] 97 kg BMI (Calculated): [35.8 kg/m??] 35.8 kg/m?? Pulse Rate: [79] 79 General: awake, alert, oriented, in no acute distress Heart:normal and regular rate and rhythm Lung: clear to auscultation Abdomen: healing well, no significant drainage, no dehiscence, mild erythema around incision, mild tenderness around the incision, no leaking. Extremities; edema absent ASSESSMENT / PLAN #Diarrhea -Likely non infectious. Probably secondary to medications (MMF or MgOx). -Will not make any changes. Continue to monitor and hydrate to compensate GI losses #1 Status post kidney donor transplant on 04/06/2022 #2 ESRD secondary to Unknown etiology Kidney allograft function continues to improve. Now Scr 2.48. We will continue to monitor Urine culture 04/13/22 grew Staphylococcus epidermidis [id number] CFU/mL. Repeat urine culture on 04/17 and 04/21/22 showed no growth to date. Plan: - The the patient will follow up with us on 04/21/2022 with dismissal labs and investigation. - We plan for dismissal later this week. - The patient will get both stent removed on 04/27/2022. - Iothalamate clearance on 04/28/22. #3 Incision/urinary Incision looks great with no sign of infection or leaking. #4 Immunosuppression, Basiliximab induction Maintenance immunosuppression includes tacrolimus, MMF, and steroids. Tacrolimus trough goal 8-10 first month and 6-8 thereafter. Currently taking tacrolimus 3 mg p.o. b.i.d. Tacrolimus level 04/25/22 was 8 #5 Infection prophylaxis, CMV: D-/ R+, EBV D+/R+ Continue Valcyte x3 month, Bactrim x6 month. #6 Hypertension Blood pressure well controlled #7 Cardiovascular #8 Electrolyte management Hypokalemia improved on oral repletion. We will reevaluate labs on Sunday and decide if needs to continue supplementation. 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 #11 Prior history of malignant melanoma Superficial, removed 2 3 years ago She received basiliximab induction due to the previous history of malignancy Recommend follow-up with Dermatology locally #12 Disposition We will plan on seeing patient on 04/28/2022 with lab work after stents removal. Thank you for allowing us to participate in the care of Ms. Shabnam Wray. Please don't hesitate to contact us with any questions or concerns. Patient seen and discussed with physician erp consultant Dr. Gini Flores M.D. PGY-4 Nephrology 04/26/22 Tony Rubalcava M.B., Mukund Otoole - 04/26/2022 11:30 AM CDT I personally saw and evaluated the patient. I reviewed the history, physical exam and plan of care documented by Dr. Mark Lemus and agree with his documentation with the following additions: Doing well. Improving creatinine. Cystoscopy and removal of both kidney transplant stents (2) - 1 in each kidney tomorrow. Iothalamate is on Sunday and will get CBC and BMP beforehand to ensure no obstruction with ureteric stent removal. Tacrolimus at goal and will get repeat in 1 week labs. Aim dismiss on Sunday Recent Labs 04/25/22 0812 04/21/22 0745 04/19/22 0758 HGB 10.0 L 10.1 L 9.6 L WBC 6.8 9.2 7.5 NA 141 141 140 CREATININE 2.48 H 3.75 H 4.62 H EGFR 21 L <15 L <15 L TACROLIMUS 8.0 11.7 10.1 Recent Labs 04/25/22 0812 04/21/22 0745 04/21/22 0744 04/19/22 0758 CALCIUM 9.4 9.9 -- 9.6 LABPHOS 2.0 L 3.2 -- 4.4 MG 1.5 L -- 1.8 2.1 documented in this encounter Plan of Treatment Upcoming Encounters Date Type Specialty Care Team Description 06/01/2022 Telemedicine Pharmacy An Nicholas APRN C.N.P., D.N.P., M.S.N. [address] [place] [address] [phone] (Wo rk) 07/31/2022 Lab Laboratory Medicine Tony Rubalcava M. B., Sydnie, Mukund [address] [place] [address] [phone] (Wo rk) 07/31/2022 Lab Laboratory Medicine Tony Rubalcava M. B., Sydnie, Mukund [address] [place] [address] [phone] (Wo rk) 07/31/2022 Office Visit Transplant Tony Rubalcava M.B., Sydnie, Mukund [address] [place] [address] [phone] (Wo rk) 07/31/2022 Appointment Radiology Tony Rubalcava M.B., Sydnie, Mukund [address] [place] [address] [phone] (Wo rk) 08/01/2022 Office Visit Transplant Tony Rubalcava M.B., Mukund Otoole [address] [place] [address] [phone] (Wo rk) 08/01/2022 Clinical Support Transplant Tony Rubalcava M.B., Mukund Otoole [address] [place], [place] [phone] (Wo rk) Scheduled Referrals Name Type Priority Associated Order Schedule Diagnoses Transplant Kidney / Outpatient Referral Routine E xpected: pancreas office 04/28/2022, visit (clinic) Expires: 07/26/2023 documented as of this encounter Results (ABNORMAL) Phosphorus Inorganic (04/28/2022 11:43 AM CDT) athologist Signature Phosphorus 1.7 (L) 2.5 - 4.5 04/28/2022 DTL (Inorganic), S mg/dL 12:30 PM CDT Specimen Anatomical Collection Method Collection Time Receive d Time (Source) Location / / Volume Laterality Blood (Blood, 04/28/2022 11:43 04/28/2022 Venous) AM CDT 12:14 PM CDT Ayan Lemus M.D. LAB BLOOD ADD-ON Performing Organization Address City/State/ZIP Code Phon e Number [facility] - [address] [place] [phone] [facility] [place] [address] [facility] 200 [facility] (ABNORMAL) Magnesium (04/28/2022 11:43 AM CDT) P athologist Signature Magnesium, S 1.3 (L) 1.7 - 2.3 04/28/2022 DTL mg/dL 2:10 PM CDT Specimen Anatomical Collection Method Collection Time Receive d Time (Source) Location / / Volume Laterality Blood (Blood, 04/28/2022 11:43 04/28/2022 Venous) AM CDT 12:14 PM CDT Ayan Lemus M.D. LAB BLOOD ADD-ON Performing Organization Address City/State/ZIP Code Phon e Number [facility] - 200 [place], [place] [address] [facility] [place] [address] [facility] 200 [facility] (ABNORMAL) Comprehensive Metabolic Panel (04/28/2022 11:43 AM CDT) Analysis Performed At Patho logist [...] Address City/State/ZIP Code Phon e Number [facility] - [address] [place], [place] [address] [place] [address] [facility] [address] [facility] (ABNORMAL) CBC with Differential, Blood (04/28/2022 11:43 AM CDT) [facility] gist Method Time Signature Hemoglobin 9.7 (L) 11.6 - 04/28/2022 DTL 15.0 g/dL 12:03 PM CDT Hematocrit 32.8 (L) 35.5 - 04/28/2022 DTL 44.9 % 12:03 PM CDT Erythrocytes 3.37 (L) 3.92 - 04/28/2022 DTL 5.13 12:03 PM CDT x10(12)/L MCV 97.3 78.2 - 04/28/2022 DTL 97.9 fL 12:03 PM CDT RBC Distrib Width 15.9 12.2 - 04/28/2022 DTL 16.1 % 12:03 PM CDT Platelet Count 134 (L) 157 - 371 04/28/2022 DTL x10(9)/L 12:03 PM CDT Leukocytes 6.2 3.4 - 9.6 04/28/2022 DTL x10(9)/L 12:03 PM CDT Neutrophils 5.53 1.56 - 04/28/2022 DTL 6.45 12:03 PM CDT x10(9)/L Lymphocytes 0.42 (L) 0.95 - 04/28/2022 DTL 3.07 12:03 PM CDT x10(9)/L Monocytes 0.24 (L) 0.26 - 04/28/2022 DTL 0.81 12:03 PM CDT x10(9)/L Eosinophils <0.03 0.03 - 04/28/2022 DTL 0.48 12:03 PM CDT x10(9)/L Basophils <0.03 0.01 - 04/28/2022 DTL 0.08 12:03 PM CDT x10(9)/L Specimen Anatomical Collection Method Collection Time Receive d Time (Source) Location / / Volume Laterality Blood (Blood, 04/28/2022 11:43 04/28/2022 Venous) AM CDT 11:53 AM CDT Ayan Lemus M.D. LAB BLOOD ADD-ON Performing Organization Address City/State/ZIP Code Phon e Number [facility] - [address] [place], [place] [address] [facility] [place] [address] [facility] [address] documented in this encounter Visit Diagnoses Diagnosis Transplant Renal (HCC) - Primary Immunodeficiency (HCC) Smoking Tobacco Use Personal History Depression Major One Episode Full Remiss ion (HCC) Failure Renal End Stage (HCC) documented in this encounter Additional Health Concerns Assessment Noted Time PHQ-9 Depression Total Score: 3 04/07/2021 9:37 AM CDT documented as of this encounter Care Teams Raker Buffing Wheel Relationship Specialty Start Date End Date Elsewhere, Pcp PCP - General 09/17/19 [facility] External Provider Laboratory Medicine 04/25/22 documented as of this encounter
--- OUTSIDE RECORDS SUMMARY | 2022-05-25 12:59 | XMS_ITS | Encounter Summary ---
:1960 Author Organization [facility] Address 200 [place] [address] Care Team Providers Name Role Phone Elsewhere, Pcp Primary Care Provider Unavailable Encounter Details Date Type Department Care Team Description 05/01/2022 Orders Only Teresa Bennett Hyper lipidemia (Primary Dx); Center for R, R.N. Immunodeficiency (HCC); Transplantation and 200 [facility] Transplant Renal (HCC); Clinical Regeneration in [place], [place] Hi gh Risk Medication [place], [place] [address] [place] [address] [place] [phone] (Work) [phone] Social History Tobacco Use Types Packs/Day Years [...] How often do you attend sabianist or scientology 1 to 4 times per year 12/23/2021 [...] place to sleep or slept in a fdc (including now)? Education Answer Date Recorded What [...] An Nicholas APRN, C.N.P., D.N.P., M.S.N. [address] [place] [address] [phone] (Nicolas wen) 07/31/2022 Lab Laboratory Medicine Tony Rubalcava M. B., ChDaviBDavi, M.D. [address] [place] [address] [phone] (Nicolas wen) 07/31/2022 Lab Laboratory Medicine Tony Rubalcava M. B., ChDaviBDavi, M.D. [address] [place] [address] [phone] (Nicolas wen) 07/31/2022 Office Visit Transplant Tony Rubalcava M.B., ChBurke, MElvia. [address] [place] [address] [phone] (Nicolas wen) 07/31/2022 Appointment Radiology Tony Rubalcava M.B., Mukund Otoole [address] [place] [address] [phone] (Wo rk) 08/01/2022 Office Visit Transplant Tony Rubalcava M.B., Mukund Otoole [address] [place] [address] [phone] (Wo rk) 08/01/2022 Clinical Support Transplant Tony Rubalcava M.B., Mukund Otoole [address] [place] [address] [phone] (Nicolas wen) documented as of this encounter Visit Diagnoses Diagnosis Hyperlipidemia - Primary Immunodeficiency (HCC) Transplant Renal (HCC) High Risk Medication documented in this encounter Additional Health Concerns Assessment Noted Time PHQ-9 Depression Total Score: 3 04/07/2021 9:37 AM CDT documented as of this encounter Care Teams Solar Project Manager Relationship Specialty Start Date End Date Elsewhere, Pcp PCP - General 09/17/19 [facility] External Provider Laboratory Medicine 04/25/22 documented as of this encounter
--- OUTSIDE RECORDS SUMMARY | 2022-05-25 12:59 | XMS_ITS | Encounter Summary ---
:1960 Author Organization [facility] Address [address] [place] [address] Care Team Providers Name Role Phone Elsewhere, Pcp Primary Care Provider Unavailable Encounter Details Date Type Department Care Team Description 05/01/2022 Orders Only Ata Koehler And jane Belle for Transplantation and Yvonne Burton, MElvia. Clinical Regeneration in [address] [place] [address] [place] [phone] [place] [phone] Social History Tobacco Use Types Packs/Day Years [...] 12/23/2021 relatives? How often do you attend hindu or jain 1 to 4 times per year 12/23/2021 services? Do you belong to any clubs or organizations such No 12/23/2021 as hindu groups, unions, fraternal or athletic groups, or [...] An Nicholas APRN, C.N.P., D.N.P., M.S.N. [address] [place] [address] [phone] (Nicolas wen) 07/31/2022 Lab Laboratory Medicine Tony Rubalcava M. B., ChDaviBDavi, M.D. [address] [place] [address] [phone] (Nicolas wen) 07/31/2022 Lab Laboratory Medicine Tony Rubalcava M. B., Ch.BDavi, M.D. [address] [place] [address] [phone] (Nicolas wen) 07/31/2022 Office Visit Transplant Tony Rubalcava M.B., ChDaviBDavi, M.D. [address] [place] [address] [phone] (Nicolas wen) 07/31/2022 Appointment Radiology Tony Rubalcava M.B., Sydnie, Mukund [address] [place] [address] [phone] (Nicolas wen) 08/01/2022 Office Visit Transplant Tony Rubalcava M.B., Sydnie, Mukund [address] [place] [address] [phone] (Nicolas wen) 08/01/2022 Clinical Support Transplant Tony Rubalcava M.B., Sydnie, Mukund [address] [place] [address] [phone] (Nicolas wen) documented as of this encounter Visit Diagnoses Not on filedocumented in this encounter Additional Health Concerns Assessment Noted Time PHQ-9 Depression Total Score: 3 04/07/2021 9:37 AM CDT documented as of this encounter Care Teams Digital Marketing Manager Relationship Specialty Start Date End Date Elsewhere, Pcp PCP - General 09/17/19 [facility] External Provider Laboratory Medicine 04/25/22 documented as of this encounter
--- OUTSIDE RECORDS SUMMARY | 2022-05-25 12:59 | XMS_ITS | Encounter Summary ---
:1960 Author Organization [facility] Address [address] [place] [address] Care Team Providers Name Role Phone Elsewhere, Pcp Primary Care Provider Unavailable Reason for Visit Reason Comments Kidney - Pancreas Transplant Dismissal class Encounter Details Date Type Department Care Team Description 04/25/2022 Education Irish Lang, BUSHER HELPER, C.N.P., D.N.P., M.S.N. [address] [place] [phone] Transplant [facility]al [facility] for Transplantation Beatriz Tillman R.N. [address] [place] [phone] ([facility]) and Clinical Regeneration in [facility] [address] [place] [phone] Social History Tobacco Use Types Packs/Day [...] How often do you attend sabianism or taoist 1 to 4 times per year 12/23/2021 [...] to sleep or slept in a senior care (including now)? Education Answer Date Recorded What [...] An Nicholas APRN, C.N.P., D.N.P., M.S.N. [address] [place] [address] [phone] (Nicolas wen) 07/31/2022 Lab Laboratory Medicine Tony Rubalcava M. B., Ch.B., M.D. [address] [place] [address] [phone] (Nicolas wen) 07/31/2022 Lab Laboratory Medicine Tony Rubalcava M. B., Ch.B., M.D. [address] [place] [address] [phone] (Nicolas wen) 07/31/2022 Office Visit Transplant Tony Rubalcava M.B., Sydnie, Mukund [address] [place] [address] [phone] (Nicolas wne) 07/31/2022 Appointment Radiology Tony Rubalcava M.B., Sydnie, Mukund [address] [place] [address] [phone] (Nicolas wen) 08/01/2022 Office Visit Transplant Tony Rubalcava M.B., Sydnie, Mukund [address] [place] [address] [phone] (Nicolas wen) 08/01/2022 Clinical Support Transplant Tony Rubalcava M.B., Sydnie, Mukund [address] [place] [address] [phone] (Nicolas wen) documented as of this encounter Visit Diagnoses Diagnosis Transplant Renal (HCC) documented in this encounter Additional Health Concerns Assessment Noted Time PHQ-9 Depression Total Score: 3 04/07/2021 9:37 AM CDT documented as of this encounter Care Teams Academic Vice President Relationship Specialty Start Date End Date Elsewhere, Pcp PCP - General 09/17/19 [facility] External Provider Laboratory Medicine 04/25/22 documented as of this encounter
--- OUTSIDE RECORDS SUMMARY | 2022-05-25 13:00 | XMS_ITS | Encounter Summary ---
:1960 Author Organization [facility] Address [address] [place] [address] Care Team Providers Name Role Phone Elsewhere, Pcp Primary Care Provider Unavailable Reason for Referral Transplant (Routine) - Closed Specialty Diagnoses / Procedures Referred By Contact Refer red To Contact [facility]plant [facility] Tete WHITE, M.S.NDavi [address] [place] [address] Referral ID Status Reason Start Date Expiration Date Visits Requ ested Visits Authorized [id number] Closed 04/13/2022 04/12/2025 1 1 Reason for Visit Transplant (Routine) - Closed Specialty Diagnoses / Procedures Referred By Contact Refer red To Contact Transplant Surgery / [facility] Transplant Mukund Gomez [address] [place] [address] Referral ID Status Reason Start Date Expiration Date Visits Requ ested Visits Authorized [id number] Closed 04/11/2022 04/10/2025 1 1 Encounter Details Date Type Department Care Team Description 04/13/2022 Office Visit Ata Bray, Transp lant Renal (HCC) (Primary Dx); Center for Tony Belle, Hyperlipidemia; Transplantation and M.B., Ch.B., Hyperten mario alberto And Chronic Kidney Disease Stage 1 To 4; Clinical Regeneration MDebra Immunodeficiency (HCC) [facility]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 - 04/13/2022 11:30 AM CDT Kidney/Pancreas Transplant Progress Note SUBJECTIVE ESRD [...] to transplant. Post transplant hospital course was uncomplicated. Patient was discharged from the hospital on 04/09/2022 with a creatinine of 7.22 mg/dl. Patient's past medical history is significant for history of renal transplant on 04/28/2008 complicated by allograft UPJ obstruction, chronic IJ thrombus, and recurrentAV fistula thrombosis. Patient returns today for close post-transplant monitoring. Since last clinic visit, patient reportsfeeling well overall. She continues to have lower extremity edema and some discomfort related to that. She also complains of some bladder pressure when urinating. She denies dysuria or hematuria. She reports making 1.7 L of urine yesterday. Her weight continues to be approximately 7 kg is above her dry weight. She reports minimal shortness of breath with exertion. She reports her incisional pain to be minimal. She remains afebrile. Patient otherwise has no other complaints today. OBJECTIVE VITAL SIGNS Temperature: [36.2 ??C] (P) 36.2 ??C Blood Pressure: (P) 182/85 Height: [164.5 cm] (P) 164.5 cm Weight: [107 kg] (P) 107 kg BSA (Calculated - sq m): [2.21 sq meters] (P) 2.21 sq meters BMI (Calculated): [39.5 kg/m??] (P) 39.5 kg/m?? Pulse Rate: [70] (P) 70 General: awake, alert, oriented, in no acute distress Heart:normal and regular rate and rhythm Lung: clear to auscultation Abdomen: healing well, no significant drainage, no dehiscence, mild erythema and bruises around incision, mild tenderness around the incision, no leaking. Extremities; edema noted in bilateral legs 2+ pitting ASSESSMENT / PLAN #1 Transplant Renal ([facility]) #2 Hyperlipidemia #3 Hypertension And Chronic Kidney Disease Stage 1 To 4 #4 Immunodeficiency (HCC) #1 Status post kidney donor transplant on 04/06/2022 #2 ESRD secondary to Unknown etiology Patient's renal allograft function appears to be slow. She was started on furosemide during her lastvisit as she was hypervolemic and made 1.7 liters of urine yesterday. She continues to be about 7 kgs above her dry weight. Her creatinine has stalled today at 7.57 mg/dl from 7.46 mg/dl. Of note patients' donor was a DCD with KDPI of 60% and CIT of 31 hours. Plan; - Increase lasix to 120 mg BID as she remains hypervolemic. Patient was asked to hold her Lasix if she loses more than 5 lb in 24 hours or for weight is within 2 kg is of her dry weight. - obtain a UA/UC as she reports some pressure when urinating. - hold off on further evaluation of her slow graft function as her donor was DCD with cold ischemic time of 31 hours. If she continues to have slow graft function we will consider further evaluation with U/S and/or biopsy. - Follow-up visit with lab work on Sunday #3 Incision/urinary Patient stent was not attached to her catheter during transplant. She is scheduled for cystoscopy stent removal on 04/27/2022. Of note patient also has a retained stent on her previous renal transplantwhich will also be removed during her cystoscopy. Her incision is clean and intact. #4 Immunosuppression, Basiliximab induction Maintenance immunosuppression includes tacrolimus, MMF, and steroids. Tacrolimus trough goal 8-10 first month and 6-8 thereafter. Tacrolimus level pending and she is currently taking 4 mg BID #5 Infection prophylaxis, CMV: D-/ R+, EBV D+/R+ Continue Valcyte x3 month, Bactrim x6 month. This is currently renally dosed and will need to be adjusted. #6 Hypertension #7 Cardiovascular #8 Hyperlipidemia Blood pressure in the clinic today at 182/95. Patient is taking nebivolol 5 mg p.o. daily for blood pressure. Her systolic blood pressures at home have been 140-160. The reason for her hypertension is likely volume. We have increased her lasix to 120 mg BID today. Patient was asked to contact us if her blood pressure remains elevated. Patient remains on rosuvastatin. 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 This was discontinued while she was hospital after her transplant. #11 History of melanoma Per her primary care doctor however should have a dermatology visit at her four month visit. #12 Disposition We will plan on seeing patient on Sunday with lab work Patient's case discussed with Dr. Rubalcava Associated attestation - Tony Rubalcava M.B., Sydnie, M.Michelle. - 04/13/2022 2:25 PM CDT I personally saw and evaluated the patient. I reviewed the history, physical exam and plan of care documented by Davi Mcdonald and agree with his documentation documented in this encounter Plan of Treatment Upcoming Encounters Date Type Specialty Care Team Description 06/01/2022 Telemedicine Pharmacy An Nicholas APRN C.N.PDavi, D.N.P., M.S.N. [address] [place] [phone] (Nicolas wen) 07/31/2022 Lab Laboratory Medicine Tony Rubalcava M. B., ChBurke, M.D. [address] [place] [phone] (Nicolas wen) 07/31/2022 Lab Laboratory Medicine Tony Rubalcava M. B., Sydnie, Mukund [address] [place] [phone] (Wo rk) 07/31/2022 Office Visit Transplant Tony Rubalcava M.B., Sydnie, Mukund [address] [place] [phone] (Wo rk) 07/31/2022 Appointment Radiology Tony Rubalcava M.B., Mukund [place]ole [address] [place] [address] [phone] (Wo behzad) 08/01/2022 Office Visit Transplant Tony Rubalcava M.B., Mukund Otoole [address] [place] [address] [phone] (Nicolas wen) 08/01/2022 Clinical Support Transplant Tony Rubalcava M.B., Sydnie, Mukund [address] [place] [address] [phone] (Nicolas wen) Scheduled Referrals Name Type Priority Associated Order Schedule Diagnoses Transplant Kidney / Outpatient Referral Routine E xpected: pancreas office 04/17/2022, visit (clinic) Expires: 07/14/2023 documented as of this encounter Results Tacrolimus, B (04/17/2022 7:43 AM CDT) P athologist Signature Tacrolimus, B 10.7 5.0-15.0 04/17/2022 SDSC (Trough) 1:01 PM CDT ng/mL Comment: ----ADDITIONAL INFORMATION---- Target [...] its performa nce characteristics determined by [facility] in a manner consistent with CLIA requirements. This test has not been cleared or approved by the [place] d and Drug Administration. Specimen Anatomical Collection Method Collection Time Receive d Time (Source) Location / / Volume Laterality Blood (Blood, 04/17/2022 7:43 AM 04/17/20 22 9:59 Venous) CDT AM CDT Jeovanny Mcdonald APRN, C.N.P., M.S.N. LAB BLOOD NON ADD -ON Performing Organization Address City/[facility] Phon e Number [facility] [address] [place], [place] [address] [facility] [place] [address] Laboratory Medicine and Pathology [address] [place] Magnesium (04/17/2022 7:43 AM CDT) P athologist Signature Magnesium, S 2.0 1.7 - 2.3 04/17/2022 DTL mg/dL 9:15 AM CDT Specimen Anatomical Collection Method Collection Time Receive d Time (Source) Location / / Volume Laterality Blood (Blood, 04/17/2022 7:43 AM 04/17/20 8:23 Venous) CDT AM CDT Jeovanny Mcdonald APRN, C.N.P., M.S.N. LAB BLOOD ADD-ON Performing Organization Address [facility] Phon e Number [facility] [address] [facility] [place] [address] Laboratories-[address] (ABNORMAL) Renal Function Panel (04/17/2022 7:43 AM CDT) Analysis Performed At Patho logist Time Signature Potassium, S 3.1 (L) 3.6 - 5.2 04/17/2022 DTL mmol/L 9:15 AM CDT Sodium, S 142 135 - 145 04/17/2022 DTL mmol/L 9:15 AM CDT Chloride, S 96 (L) 98 - 107 04/17/2022 DTL mmol/L 9:15 AM CDT Bicarbonate, S 24 22 - 29 04/17/2022 DTL mmol/L 9:15 AM CDT Anion Gap 22 (H) 7 - 15 04/17/2022 DTL 9:15 AM CDT BUN (Blood Urea 98 (H) 6 - 21 04/17/2022 DTL Nitrogen), S mg/dL 9:32 AM CDT Creatinine 5.60 (H) 0.59 - 04/17/2022 DTL 1.04 mg/dL 9:15 AM CDT Estimated GFR <15 (L) >=60 04/17/2022 DTL (eGFR) mL/min/BSA 9:15 AM CDT Comment: Estimated GFR calculated using the 2020 CKD_EPI creatinine equation. Calcium, Total, S 9.3 8.8 - 10.2 mg/dL 04/17/2022 9:15 AM CDT DTL Glucose, S 113 70 - 140 mg/dL 04/17/2022 9:15 AM CDT D TL Albumin, S 4.5 3.5 - 5.0 g/dL 04/17/2022 9:15 AM CDT D TL Phosphorus (Inorganic), S 5.5 (H) 2.5 - 4.5 mg/dL 04/17/20 22 9:15 AM CDT DTL Specimen Anatomical Collection Method Collection Time Receive d Time (Source) Location / / Volume Laterality Blood (Blood, 04/17/2022 7:43 AM 04/17/20 22 8:23 Venous) CDT AM CDT Fracisco Muir APRN.N.P., M.S.N. LAB BLOOD ADD-ON Performing Organization Address City/State/ZIP Code Phon e Number [facility] - [address] [place], [place] [address] [facility] [address] Laboratories-[facility] [address] (ABNORMAL) CBC with Differential, Blood (04/17/2022 7:43 AM CDT) [facility] Method Time Signature Hemoglobin 9.3 (L) 11.6 - 04/17/2022 DHPM 15.0 g/dL 8:34 AM CDT Hematocrit 29.0 (L) 35.5 - 04/17/2022 DHPM 44.9 % 8:34 AM CDT Erythrocytes 3.14 (L) 3.92 - 04/17/2022 DHPM 5.13 8:34 AM CDT x10(12)/L MCV 92.4 78.2 - 04/17/2022 DHPM 97.9 fL 8:34 AM CDT RBC Distrib Width 14.6 12.2 - 04/17/2022 DHPM 16.1 % 8:34 AM CDT Platelet Count 169 157 - 371 04/17/2022 DHPM x10(9)/L 8:34 AM CDT Leukocytes 6.6 3.4 - 9.6 04/17/2022 DHPM x10(9)/L 8:34 AM CDT Neutrophils 5.13 1.56 - 04/17/2022 DHPM 6.45 8:34 AM CDT x10(9)/L Lymphocytes 1.24 0.95 - 04/17/2022 DHPM 3.07 8:34 AM CDT x10(9)/L Monocytes 0.14 (L) 0.26 - 04/17/2022 DHPM 0.81 8:34 AM CDT x10(9)/L Eosinophils 0.12 0.03 - 04/17/2022 DHPM 0.48 8:34 AM CDT x10(9)/L Basophils <0.03 0.01 - 04/17/2022 DHPM 0.08 8:34 AM CDT x10(9)/L Specimen Anatomical Collection Method Collection Time Receive d Time (Source) Location / / Volume Laterality Blood (Blood, 04/17/2022 7:43 AM 04/17/20 22 8:23 Venous) CDT AM CDT Jeovanny Mcdonald APRN C.N.P., M.S.N. LAB BLOOD ADD-ON Performing Organization Address City/State/ZIP Code Phon e Number [facility] - [address] [place], [place] [address] [place] [address] Laboratories-[facility] [address] (ABNORMAL) Bacterial Culture, Aerobic + Susc, Urine (04/13/2022 12:31 PM CDT) Component Value Ref Test Analysis Performed At [facility] Range Method Time Signature Urine Culture STAPHYLOCOCCUS EPIDERMIDIS DTL 10,000-100,000 cfu/mL 12:41 PM (A) CDT Specimen Anatomical Collection Method Collection Time Receive d Time (Source) Location / / Volume Laterality Urine (Urine, 04/13/2022 12:31 04/13/2022 3:06 Midstream) PM CDT PM CDT Comment: Specimen Source Site: Urine Organism Antibiotic Method Susceptibility Staphylococcus epidermidis Oxacillin SUSCEPTIBILITY, MAYA > 2 mcg/mL: Resistant (MCG/ML) Comment: Use oxacillin interpretation to predict results for anti-staphylococcal beta-lac hameed antibiotics (except ceftaroline). Staphylococcus Vancomycin SUSCEPTIBILITY, MAYA 2 mcg/mL: Golden sceptible epidermidis (MCG/ML) Staphylococcus Levofloxacin SUSCEPTIBILITY, MAYA >4 mcg/mL: R esistant epidermidis (MCG/ML) Comment: Fluoroquinolones have a limi rebecca role in treatment of staphylococcal infections; c onsult Infectious Diseases if considering usage. Staphylococcus Trimethoprim + SUSCEPTIBILITY, MAYA >2/38 mcg/mL : epidermidis Sulfamethoxazole (MCG/ML) Resistant Staphylococcus Nitrofurantoin SUSCEPTIBILITY, MAYA <=32 mcg/mL: epidermidis (MCG/ML) Susceptible Staphylococcus Rifampin SUSCEPTIBILITY, MAYA <=0.5 mcg/mL : epidermidis (MCG/ML) Susceptible Comment: Rifampin should not be used as monotherapy Jeovanny Mcdonald APRN C.N.P., M.S.N. LAB MICROBIOLOGY - GENERAL ORDERABLES Performing Organization Address City/State/ZIP Code Phon e Number [facility] - [address] [place] [address] [facility] [address] Laboratories-[address] (ABNORMAL) Urinalysis with Microscopic: Urine, Midstream (04/13/2022 12:31 PM CDT) Analysis Performed At Patho logist Time Signature Source Midstream 04/13/2022 DTL 12:45 PM CDT Color, U Yellow 04/13/2022 DTL 12:46 PM CDT Clarity, U Clear 04/13/2022 DTL 12:46 PM CDT Protein, U 28 (H) <26 mg/dL 04/13/2022 DTL 1:30 PM CDT Protein/Osmola 0.85 (H) <0.42 04/13/2022 DTL lity ratio 1:50 PM CDT Predicted 24 579 mg/24 h 04/13/2022 DTL Hr Protein 1:50 PM CDT Predicted 143-2346 mg/24 h 04/13/2022 DTL Range 1:50 PM CDT Specimen Anatomical Collection Method Collection Time Receive d Time (Source) Location / / Volume Laterality Urine (Urine, 04/13/2022 12:31 04/13/2022 Midstream) PM CDT 12:45 PM CDT Jeovanny K Harry WHITE C.N.P., M.S.N. LAB URINE ORDERAB LES Performing Organization Address City/State/[facility] Code Phon e Number [facility] - [address] [place], [place] [address] [facility] [address] Laboratories-[facility] [address] documented in this encounter Visit Diagnoses Diagnosis Transplant Renal (HCC) - Primary Hyperlipidemia Hypertension And Chronic Kidney Disease Stage 1 To 4 Immunodeficiency (HCC) documented in this encounter Additional Health Concerns Assessment Noted Time PHQ-9 Depression Total Score: 3 04/07/2021 9:37 AM CDT documented as of this encounter Care Teams Technical Buyer Relationship Specialty Start Date End Date Elsewhere, Pcp PCP - General 09/17/19 [facility] External Provider Laboratory Medicine 04/11/22 04/24/22 documented as of this encounter
--- OUTSIDE RECORDS SUMMARY | 2022-05-25 13:00 | XMS_ITS | Encounter Summary ---
:1960 Author Organization [facility] Address [address] [place] [address] Care Team Providers Name Role Phone Elsewhere, Pcp Primary Care Provider Unavailable Encounter Details Date Type Department Care Team Description 04/21/2022 Education Ata Richard, Irish Yap, CHRISTOPHER, C.N.P., D.N.P., M.S.N. [address] [place] [phone] [facility] Ligia Layton RDN, LD [address] [place] [phone] ([facility]) and Clinical Regeneration in [facility] [address] [place] [phone] Social History Tobacco Use Types Packs/Day [...] How often do you attend mu-ism or hinduism 1 to 4 times per [...] place to sleep or slept in a retirement (including now)? Education Answer Date Recorded What [...] An Nicholas APRN, C.N.P., D.N.P., M.S.N. [address] [place] [phone] (Wo rk) 07/31/2022 Lab Laboratory Medicine Tony Rubalcava M. B., Ch.Maurice, M.D. [address] [place] [phone] (Wo behzad) 07/31/2022 Lab Laboratory Medicine Tony Rubalcava M. B., Ch.Maurice, M.D. [address] [place] [phone] (Wo behzad) 07/31/2022 Office Visit Transplant Tony Rubalcava M.B., Sydnie, Mukund [address] [place] [phone] (Wo rk) 07/31/2022 Appointment Radiology Tony Rubalcava M.B., Mukund [place] [address] [place] [address] [phone] (Nicolas wen) 08/01/2022 Office Visit Transplant Tony Rubalcava M.B., Sydnie, Mukund [address] [place] [address] [phone] (Nicolas wen) 08/01/2022 Clinical Support Transplant Tony Rubalcava M.B., Sydnie, Mukund [address] [place] [address] [phone] (Nicolas wen) documented as of this encounter Visit Diagnoses Diagnosis Transplant Renal (HCC) documented in this encounter Additional Health Concerns Assessment Noted Time PHQ-9 Depression Total Score: 3 04/07/2021 9:37 AM CDT documented as of this encounter Care Teams Honeycomb Decapper Relationship Specialty Start Date End Date Elsewhere, Pcp PCP - General 09/17/19 [facility] External Provider Laboratory Medicine 04/11/22 04/24/22 documented as of this encounter
--- OUTSIDE RECORDS SUMMARY | 2022-05-25 13:00 | XMS_ITS | Encounter Summary ---
:1960 Author Organization [facility] Address [address] [place] [address] Care Team Providers Name Role Phone Elsewhere, Pcp Primary Care Provider Unavailable Reason for Referral Transplant (Routine) - Closed Specialty Diagnoses / Procedures Referred By Contact Refer red To Contact Transplant Surgery / [facility] Transplant Mukund Gomez [address] [place] [address] Referral ID Status Reason Start Date Expiration Date Visits Requ ested Visits Authorized [id number] Closed 04/17/2022 04/16/2025 1 1 Reason for Visit Transplant (Routine) - Closed Specialty Diagnoses / Procedures Referred By Contact Refer red To Contact [facility] QUANTITATIVE CONSULTANT, C.N.PDavi, M.S.NDavi [address] [place] [phone] Referral ID Status Reason Start Date Expiration Date Visits Requ ested Visits Authorized [id number] Closed 04/13/2022 04/12/2025 1 1 Encounter Details Date Type Department Care Team Description 04/17/2022 Office Visit Katherine Chavez lant Renal (HCC) (Primary Dx); [facility] Jeni, S welling Leg Left and Clinical Regeneration M.D. in [facility] quotation checker 200 [facility] [address] [place] [phone] Social History Tobacco Use Types Packs/Day Years [...] How often do you attend pentecostal or sabianism 1 to 4 times per year 12/23/2021 [...] Sign Reading Time Taken Comments Blood Pressure 110/79 04/17/2022 9:28 AM CDT Pulse 100 04/17/2022 9:28 AM CDT Temperature 36.4 ??C (97.5 ??F) 04/17/2022 9:28 AM CDT Respiratory Rate - - Oxygen Saturation - - Inhaled Oxygen Concentration - - Weight 98.5 kg (217 lb 2.5 oz) 04/17/2022 9:28 AM CDT Height - - Body Mass Index 36.01 04/11/2022 8:23 AM CDT documented in this encounter Progress Notes Patricia Cox M.D. - 04/17/2022 9:30 AM CDT Kidney/Pancreas Transplant Progress Note SUBJECTIVE [...] Patient returns today for close post-transplant monitoring; the patient has been feeling tried. She denies any shortness of breath, chest pain, fever. She does not have any diarrhea and she has good bowel movement. She has been taking Lasix which was increased to 120 mg p.o. b.i.d. The patient was hypervolemic and also hypertensive. She had lost 8 kg since 04/11. She has had pressure around her bladder and urinary urgency. The patient has gone to the restroom every 30 minutes. On Sunday, she decided to take furosemide just only 1 pill twice a day instead of 1.5 pill twice a day. Yesterday, she took only 1 pill in the morning and 0.5 pill in the evening. Current Outpatient Medications on File Prior to [...] tablet Take 5 mg by mouth daily. oxyCODONE (ROXICODONE) 5 mg immediate release tablet Take 1 tablet (5 mg total) by mouth every 4 (four) hours as needed for pain Indication: Acute Pain. 18 tablet 0 pantoprazole (PROTONIX) 40 mg EC tablet Take 1 tablet (40 mg total) by mouth every morning before breakfast. 30 tablet 0 predniSONE (DELTASONE) 5 mg tablet Take 1-4 tablets (5-20 mg total) by mouth daily. 04/11-04/28: 4 tabs, 04/29-05/05: 3 tabs, 05/06-05/12: 2 tabs, 05/13 and after: 1 tab daily 120 tablet 1 rosuvastatin (CRESTOR) 5 mg tablet Take 1 tablet (5 mg total) by mouth at bedtime. 90 tablet 3 sennosides-docusate sodium (Senna with Docusate Sodium) 8.6-50 mg per tablet Take 1-2 tablets by mouth 2 (two) times a day. Take while on any narcotics, or for constipation. Stop for diarrhea. 100 tablet 0 sertraline (ZOLOFT) 25 mg tablet Take 1 tablet (25 mg total) by mouth at bedtime. 90 tablet 3 sulfamethoxazole-trimethoprim (BACTRIM,SEPTRA) 400-80 mg per tablet Take 1 tablet by mouth 3 (three) times a week. Stop date: 10/08/22. Dose adjusted based on renal function. 30 tablet 5 tacrolimus (PROGRAF) 1 mg capsule Take 5 capsules (5 mg total) by mouth every 12 (twelve) hours. Dose may change based on levels. 180 capsule 1 valGANciclovir (VALCYTE) 450 mg tablet Take 1 tablet (450 mg total) by mouth 3 (three) times a week. Dose may be adjusted based on kidney function. Stop date: 07/08/22 30 tablet 2 [DISCONTINUED] furosemide (LASIX) 80 mg tablet Take 1.5 tablets (120 mg total) by mouth 2 (two) times a day. 90 tablet 0 No current facility-administered medications on file prior to visit. OBJECTIVE VITAL SIGNS Temperature: [36.4 ??C] 36.4 ??C Blood Pressure: (110)/(79) 110/79 Weight: [98.5 kg] 98.5 kg BMI (Calculated): [36.4 kg/m??] 36.4 kg/m?? Pulse Rate: [100] 100 General: awake, alert, oriented, in no acute distress Heart:normal and regular rate and rhythm Lung: clear to auscultation Abdomen: healing well, no significant drainage, no dehiscence, mild erythema and bruises around incision, moderate tenderness around the incision, no leaking. 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 Significantly less hypervolemic. Making good urine output. Having slow graft function. Does not require any hemodialysis. Feeling fatigued which is likely related to hypokalemia. Urine output 3 L for the past 24 hours. Urine culture grew Staphylococcus epidermidis [id number] CFU/mL. Creatinine 5.6 from 7.57. Still having stents at both previous and new allografts. Plan: - The patient will have follow-up with us on 04/19/2022. We will get CBC with differential, renal function panel, magnesium, phosphorus, tacrolimus level. - We will discontinue furosemide. The patient will continue observing for her volume status and urine output. We will consider resuming back furosemide if the patient does not have good urine output orhaving hypervolemia. - We will repeat urine culture and urinalysis today. - We will touch base with Dr. Felipe regarding stent removal. - The left leg is more swollen than right leg with history of chronic IJ thrombus in the past, we will obtain venous Doppler ultrasound both legs. #3 Incision/urinary Incision looks great with no sign of infection or leaking. #4 Immunosuppression, Basiliximab induction Maintenance immunosuppression includes tacrolimus, MMF, and steroids. Tacrolimus trough goal 8-10 first month and 6-8 thereafter. Currently taking tacrolimus 5 mg p.o. b.i.d. Tacrolimus level this morning was this morning 10.7. Plan: - We will decrease tacrolimus to 4 mg p.o. b.i.d. #5 Infection prophylaxis, CMV: D-/ R+, EBV D+/R+ Continue Valcyte x3 month, Bactrim x6 month. #6 Hypertension #7 Cardiovascular Blood pressure in the clinic today at 133/77. Patient is taking nebivolol 5 mg p.o. daily for blood pressure. We will continue this regimen for now. The blood pressure is improved after diuresis. If the blood pressure remains high we may consider adding amlodipine 5 mg p.o. daily. #8 Electrolyte management (hypomagnesemia, hyperkalemia, hypophosphatemia) Bicarbonate 24 from 22. No hyperkalemia. Calcium 9.3, magnesium 2.0. #9 Hematology (anemia secondary to CKD, anemia secondary iron deficiency, etc.) Hemoglobin 9.3 from 8.8. We will continue observing for now. 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 #11 History of melanoma Per her primary care doctor. Answers submitted by the patient for this visit: General Review of Symptoms (Submitted on 02/26/2022) No general issues: Yes Visual problems: Yes No ENT issues: Yes No heart issues: Yes No respiratory issues: Yes Constipation: Yes No muscle/bone issues: Yes No skin issues: Yes No neurologic issues: Yes No mental health issues: Yes No blood/lymph issues: Yes No urinary/reproductive issues: Yes Jeni Cantrell M.D. - 04/17/2022 9:30 AM CDT The patient was seen and discussed with Dr. Cox. Please refer to his note for further details. Briefly, this is a 62-year-old female who has a history of kidney transplant for unclear etiology.She has had previous kidney allograft, but failed secondary to obstruction. She has undergone a 2nd donor kidney transplant on April 06, 2022. This was a 0/6 antigen mismatch, CMV donor negative, recipient positive, and EBV donor positive, recipient positive. She was induced with Basiliximab, and is currently on tacrolimus, CellCept, and prednisone, standard titer. Her post-transplant course was initially complicated by slow graft function. Her creatinine, however, has been significantly improving. She has been on a high dose of diuretics, and she tells me that she has been making lots of urine. In fact, she has lost a significant amount of weight, as described in Dr. Cox's note. She feels like she is going to the bathroom all of the time. Her weight decreased from 107 on the to 98 on April 17. The stent in the transplanted kidney is still in. She also has a stent in her previous allograft, with plans to remove it at the time of the stent removal from the new kidney. Lastly, urine cultures came back positive for Staph epi. The patient is essentially asymptomatic. OBJECTIVE PHYSICAL EXAMINATION General: She is comfortable. Abdomen: Soft. The incision is well healed. Extremities: There is 1+ edema of the left lower extremity at the site of the kidney allograft, and trace in the right lower extremity. DIAGNOSTICS Labs were reviewed. Her creatinine decreased from 7.5 on April 13 to 5.6. Her potassium is 3.1 mg/dL. Hemoglobin is 9.3 g/dL. ASSESSMENT / PLAN #1 Status post donor kidney transplant on April 06, 2022 #2 Induction and maintenance therapy #3 Failed kidney transplant on April 28, 2008 #4 Hypokalemia #5[QAMARKER] Symmetrical edema #6 Obesity Overall, the patient is doing very well. I am encouraged that her kidney function is improving. PLAN: Discontinue Lasix. Encouraged high-potassium intake. Left lower extremity ultrasound for DVT; my suspicion for this is low, given that the edema is at the site of her allograft. However, we will proceed to rule it out. Discussed with Dr. Felipe regarding earlier stent removal. documented in this encounter Plan of Treatment Upcoming Encounters Date Type Specialty Care Team Description 06/01/2022 Telemedicine Pharmacy An Nicholas APRN C.N.P., D.N.P., M.S.N. [address] [place] [phone] (Nicolas wen) 07/31/2022 Lab Laboratory Medicine Tony Rubalcava M. B., Sydnie, M.D. [address] [place] [phone] (Nicolas wen) 07/31/2022 Lab Laboratory Medicine Tony Rubalcava M. B., ChDaviBDavi, M.D. [address] [place] [phone] (Nicolas wen) 07/31/2022 Office Visit Transplant Tony Rubalcava M.B., ChDaviBDavi, M.D. [address] [place] [phone] (Nicolas wen) 07/31/2022 Appointment Radiology Tony Rubalcava M.B., ChDaviBDavi, M.D. [address] [place] [phone] (Nicolas wen) 08/01/2022 Office Visit Transplant Tony Rubalcava M.B., Mukund Otoole [address] [place], [place] [phone] (Nicolas wen) 08/01/2022 Clinical Support Transplant Tony Rubalcava M.B., Mukund Otoole [address] [place], [place] [phone] (Nicolas wen) Scheduled Referrals Name Type Priority Associated Order Schedule Diagnoses Transplant Kidney / Outpatient Referral Routine E xpected: pancreas office 04/19/2022, visit (clinic) Expires: 07/18/2023 documented as of this encounter Results Tacrolimus, B (04/19/2022 7:58 AM CDT) athologist Signature Tacrolimus, B 10.1 5.0-15.0 04/19/2022 [facility] (Trough) 12:50 PM CDT ng/mL Comment: ----ADDITIONAL INFORMATION---- Target steady-state trough concentration s vary depending on the type of transplant, concomitant immunosuppressio n, clinical/institutional protocols, and time post-transplant. Results should be interpreted in conjunction with this clinical information and any physic al signs/symptoms of rejection/toxicity. Testing performed by Liquid Chromatograp hy-Tandem Mass Spectrometry (LC-MS/MS). This test was developed and its performa nce characteristics determined by [facility] in a manner consistent with CLIA requirements. This test has not been cleared or approved by the [place] d and Drug Administration. Specimen Anatomical Collection Method Collection Time Receive d Time (Source) Location / / Volume Laterality Blood (Blood, 04/19/2022 7:58 AM 04/19/20 22 Venous) CDT 10:13 AM CDT Patricia Cox M.D. LAB BLOOD NON ADD-ON Performing Organization Address City/State/ZIP Code Phon e Number [facility] [address] [place], [place] [address] [facility] [place] [address] Laboratory Medicine and Pathology [address] [place] Magnesium (04/19/2022 7:58 AM CDT) P athologist Signature Magnesium, S 2.1 1.7 - 2.3 04/19/2022 DTL mg/dL 9:41 AM CDT Specimen Anatomical Collection Method Collection Time Receive d Time (Source) Location / / Volume Laterality Blood (Blood, 04/19/2022 7:58 AM 04/19/20 8:27 Venous) CDT AM CDT Patricia Cox M.D. LAB BLOOD ADD-ON Performing Organization Address City/State/ZIP Code Phon e Number [facility] - [address] [place], [place] [address] [facility] [place] [address] Laboratories-[facility] [address] (ABNORMAL) Renal Function Panel (04/19/2022 7:58 AM CDT) Analysis Performed At Patho logist Time Signature Potassium, S 3.5 (L) 3.6 - 5.2 04/19/2022 DTL mmol/L 9:41 AM CDT Sodium, S 140 135 - 145 04/19/2022 DTL mmol/L 9:41 AM CDT Chloride, S 96 (L) 98 - 107 04/19/2022 DTL mmol/L 9:41 AM CDT Bicarbonate, S 24 22 - 29 04/19/2022 DTL mmol/L 9:41 AM CDT Anion Gap 20 (H) 7 - 15 04/19/2022 DTL 9:41 AM CDT BUN (Blood Urea 90 (H) 6 - 21 04/19/2022 DTL Nitrogen), S mg/dL 9:41 AM CDT Creatinine 4.62 (H) 0.59 - 04/19/2022 DTL 1.04 mg/dL 9:41 AM CDT Estimated GFR <15 (L) >=60 04/19/2022 DTL (eGFR) mL/min/BSA 9:41 AM CDT Comment: Estimated GFR calculated using the 2020 CKD_EPI creatinine equation. Calcium, Total, S 9.6 8.8 - 10.2 mg/dL 04/19/2022 9:41 AM CDT DTL Glucose, S 126 70 - 140 mg/dL 04/19/2022 9:41 AM CDT D TL Albumin, S 4.7 3.5 - 5.0 g/dL 04/19/2022 9:41 AM CDT D TL Phosphorus (Inorganic), S 4.4 2.5 - 4.5 mg/dL 04/19/20 22 9:41 AM CDT DTL Specimen Anatomical Collection Method Collection Time Receive d Time (Source) Location / / Volume Laterality Blood (Blood, 04/19/2022 7:58 AM 04/19/20 22 8:27 Venous) CDT AM CDT Patricia Cox M.D. LAB BLOOD ADD-ON Performing Organization Address City/State/ZIP Code Phon e Number [facility] - 200 [place], [place] [address] [facility] [place] [address] Laboratories-[facility] 200 [facility] (ABNORMAL) CBC with Differential, Blood (04/19/2022 7:58 AM CDT) [facility] gist Method Time Signature Hemoglobin 9.6 (L) 11.6 - 04/19/2022 DTL 15.0 g/dL 8:41 AM CDT Hematocrit 30.9 (L) 35.5 - 04/19/2022 DTL 44.9 % 8:41 AM CDT Erythrocytes 3.31 (L) 3.92 - 04/19/2022 DTL 5.13 8:41 AM CDT x10(12)/L MCV 93.4 78.2 - 04/19/2022 DTL 97.9 fL 8:41 AM CDT RBC Distrib Width 14.4 12.2 - 04/19/2022 DTL 16.1 % 8:41 AM CDT Platelet Count 144 (L) 157 - 371 04/19/2022 DTL x10(9)/L 8:41 AM CDT Leukocytes 7.5 3.4 - 9.6 04/19/2022 DTL x10(9)/L 8:41 AM CDT Neutrophils 5.73 1.56 - 04/19/2022 DTL 6.45 8:41 AM CDT x10(9)/L Lymphocytes 1.58 0.95 - 04/19/2022 DTL 3.07 8:41 AM CDT x10(9)/L Monocytes 0.12 (L) 0.26 - 04/19/2022 DTL 0.81 8:41 AM CDT x10(9)/L Eosinophils 0.09 0.03 - 04/19/2022 DTL 0.48 8:41 AM CDT x10(9)/L Basophils <0.03 0.01 - 04/19/2022 DTL 0.08 8:41 AM CDT x10(9)/L Specimen Anatomical Collection Method Collection Time Receive d Time (Source) Location / / Volume Laterality Blood (Blood, 04/19/2022 7:58 AM 04/19/20 8:27 Venous) CDT AM CDT Patricia Cox M.D. LAB BLOOD ADD-ON Performing Organization Address [facility] Phon e Number [facility] - [address] [place] [address] Bacterial Culture, Aerobic + Susc, Urine (04/17/2022 12:11 PM CDT) Patholo gist Method Time Signature Urine Culture No growth 04/18/2022 DTL after 1 day 8:31 AM CDT of incubation. Specimen Anatomical Collection Method Collection Time Receive d Time (Source) Location / / Volume Laterality Urine (Urine, 04/17/2022 12:11 04/17/2022 1:17 Midstream) PM CDT PM CDT Comment: Specimen Source Site: Urine Patricia Cox M.D. LAB MICROBIOLOGY - GENERAL O RDERABLES Performing Organization Address [facility] Phon e Number [facility] - [address] [place] [address] (ABNORMAL) Urinalysis with Microscopic: Urine, Midstream (04/17/2022 12:11 PM CDT) Analysis Performed At Patho logist Time Signature Source Midstream 04/17/2022 DTL 12:24 PM CDT Color, U Yellow 04/17/2022 DTL 12:24 PM CDT Clarity, U Clear 04/17/2022 DTL 12:24 PM CDT Protein, U 62 (H) <26 mg/dL 04/17/2022 DTL 1:29 PM CDT Protein/Osmola 1.71 (H) <0.42 04/17/2022 DTL lity ratio 1:29 PM CDT Predicted 24 1090 mg/24 h 04/17/2022 DTL Hr Protein 1:29 PM CDT Predicted 269-4415 mg/24 h 04/17/2022 DTL Range 1:29 PM CDT Specimen Anatomical Collection Method Collection Time Receive d Time (Source) Location / / Volume Laterality Urine (Urine, 04/17/2022 12:11 04/17/2022 Midstream) PM CDT 12:24 PM CDT Patricia Cox M.D. LAB URINE ORDERABLES Performing Organization Address City/State/ZIP Code Phon e Number [facility] - [address] [place], [place] [address] [facility] [place] [address] Laboratories-[facility] [address] documented in this encounter Visit Diagnoses Diagnosis Transplant Renal (HCC) - Primary Swelling Leg Left documented in this encounter Additional Health Concerns Assessment Noted Time PHQ-9 Depression Total Score: 3 04/07/2021 9:37 AM CDT documented as of this encounter Care Teams Scales Inspector Relationship Specialty Start Date End Date Elsewhere, Pcp PCP - General 09/17/19 [facility] External Provider Laboratory Medicine 04/11/22 04/24/22 documented as of this encounter
--- OUTSIDE RECORDS SUMMARY | 2022-05-25 13:00 | XMS_ITS | Encounter Summary ---
:1960 Author Organization [facility] Address [address] [place] [address] Care Team Providers Name Role Phone Elsewhere, Pcp Primary Care Provider Unavailable Reason for Referral Transplant (Routine) - Closed Specialty Diagnoses / Procedures Referred By Contact Refer red To Contact Transplant Surgery / Jeni Cantrell [facility] M.D. [address] [place] [phone] Referral ID Status Reason Start Date Expiration Date Visits Requ ested Visits Authorized [id number] Closed 04/21/2022 04/20/2025 1 1 Encounter Details Date Type Department Care Team Description 04/21/2022 Orders Only Ata Hendrix [facility] are Transplant Center for Transplantation Maddie Ngo ([facility]) (Primary and Clinical Regeneration M.D. Dx) in [facility] [address] [place] [phone] Social History Tobacco Use Types Packs/Day Years [...] 12/23/2021 relatives? How often do you attend hoahaoism or anglican 1 to 4 times per year 12/23/2021 services? Do you belong to any clubs or organizations such No 12/23/2021 as hoahaoism groups, unions, fraternal or athletic groups, or [...] An Nicholas APRN, C.N.P., D.N.P., M.S.N. [address] [place] [phone] (Nicolas wen) 07/31/2022 Lab Laboratory Medicine Tony Rubalcava M. B., Ch.Maurice, M.D. [address] [place] [phone] (Nicolas wen) 07/31/2022 Lab Laboratory Medicine Tony Rubalcava M. B., Mukund Otoole [address] [place] [phone] (Wo rk) 07/31/2022 Office Visit Transplant Tony Rubalcava M.B., Mukund Otoole [address] [place] [phone] (Wo rk) 07/31/2022 Appointment Radiology Tony Rubalcava M.B., Mukund Otoole [address] [place] [phone] (Wo behzad) 08/01/2022 Office Visit Transplant Tony Rubalcava M.B., Sydnie, Mukund [address] [place] [phone] (Wo rk) 08/01/2022 Clinical Support Transplant Tony Rubalcava M.B., Sydnie, Mukund [address] [place] [phone] (Wo behzad) Scheduled Referrals Name Type Priority Associated Order Schedule Diagnoses Transplant Kidney / Outpatient Referral Routine E xpected: pancreas office 04/23/2022, visit (clinic) Expires: 07/21/2023 documented as of this encounter Results Tacrolimus, B (04/25/2022 8:12 AM CDT) P athologist Signature Tacrolimus, B 8.0 5.0-15.0 04/25/2022 [facility] (Trough) 12:58 PM CDT ng/mL Comment: ----ADDITIONAL [...] Laterality Blood (Blood, 04/25/2022 8:12 AM 04/25/20 22 9:59 Venous) CDT AM CDT Jeni Cantrell M.D. LAB BLOOD NON ADD-ON Performing Organization Address City/[facility] Phon e Number [facility] [address] [place], [place] [address] [facility] Laboratories - [place], [place] [address] [place] [id number] [place] (ABNORMAL) Magnesium (04/25/2022 8:12 AM CDT) P athologist Signature Magnesium, S 1.5 (L) 1.7 - 2.3 04/25/2022 DTL mg/dL 9:32 AM CDT Specimen Anatomical Collection Method Collection Time Receive d Time (Source) Location / / Volume Laterality Blood (Blood, 04/25/2022 8:12 AM 04/25/20 22 8:47 Venous) CDT AM CDT Jeni Cantrell M.D. LAB BLOOD ADD-ON Performing Organization Address City/[facility] Phon e Number [facility] - 200 [place], [place] [address] [facility] [place] [address] Laboratories-[facility] 200 [facility] (ABNORMAL) Renal Function Panel (04/25/2022 8:12 AM [...] Laterality Blood (Blood, 04/25/2022 8:12 AM 04/25/20 22 8:47 Venous) CDT AM CDT Jeni Cantrell M.D. LAB BLOOD ADD-ON Performing Organization Address City/State/ZIP Code Phon e Number [facility] - [address] [place] [address] [facility] [place] [address] Laboratories-[facility] 200 [facility] (ABNORMAL) CBC with Differential, Blood (04/25/2022 8:12 AM CDT) [facility] gist Method Time Signature Hemoglobin [...] Laterality Blood (Blood, 04/25/2022 8:12 AM 04/25/20 22 8:46 Venous) CDT AM CDT Jeni Cantrell M.D. LAB BLOOD ADD-ON Performing Organization Address City/State/ZIP Code Phon e Number [facility] - [address] [place], [place] [address] [place] [address] Laboratories-[facility] [address] documented in this encounter Visit Diagnoses Diagnosis Aftercare Transplant Renal (HCC) - Prima ry documented in this encounter Additional Health Concerns Assessment Noted Time PHQ-9 Depression Total Score: 3 04/07/2021 9:37 AM CDT documented as of this encounter Care Teams Sales And Marketing Assistant Relationship Specialty Start Date End Date Elsewhere, Pcp PCP - General 09/17/19 [facility] External Provider Laboratory Medicine 04/11/22 04/24/22 documented as of this encounter
--- OUTSIDE RECORDS SUMMARY | 2022-05-25 13:00 | XMS_ITS | Encounter Summary ---
:1960 Author Organization [facility] Address [address] [place] [address] Care Team Providers Name Role Phone Elsewhere, Pcp Primary Care Provider Unavailable Reason for Referral Outpatient (Routine) - Closed Specialty Diagnoses / Procedures Referred By Contact Refer red To Contact Diagnoses Transplant Renal ([facility]) [facility] Procedures BMD Bone Density Spine Hips M.D. [address] [place] [address] [phone] Referral ID Status Reason Start Date Expiration Date Visits Requ ested Visits Authorized [id number] Closed 04/19/2022 04/19/2023 1 1 Reason for Visit Outpatient (Routine) - Closed Specialty Diagnoses / Procedures Referred By Contact Refer red To Contact Diagnoses Transplant Renal ([facility]) [facility] Procedures BMD Bone Density Spine Hips M.D. [address] [place] [phone] Referral ID Status Reason Start Date Expiration Date Visits Requ ested Visits Authorized [id number] Closed 04/19/2022 04/19/2023 1 1 Encounter Details Date Type Department Care Team Description 04/21/2022 Hospital Encounter Department of [facility] Renal Radiology, Earnest Gomez M.D. (HCC) Building, in [address] [place] [address] [place] [phone] [place], [place] [phone] (Work) [phone] Social History Tobacco Use Types Packs/Day Years [...] 12/23/2021 relatives? How often do you attend mosque or christianity 1 to 4 times per year 12/23/2021 services? Do you belong to any clubs or organizations such No 12/23/2021 as mosque groups, unions, fraternal or athletic groups, or [...] pay for the very basics like Not jarrett bautista hard 12/23/2021 food, housing, medical care, and [...] An Nicholas APRN C.N.P., D.N.P., M.S.N. [address] [place] [address] [phone] (Nicolas wen) 07/31/2022 Lab Laboratory Medicine Tony Rubalcava M. B., Ch.B., M.D. [address] [place] [address] [phone] (Nicolas wen) 07/31/2022 Lab Laboratory Medicine Tony Rubalcava M. B., Ch.B., M.D. [address] [place] [address] [phone] (Wo rk) 07/31/2022 Office Visit Transplant Tony Rubalcava M.B., Mukund [place] [address] [place] [address] [phone] (Wo rk) 07/31/2022 Appointment Radiology Tony Rubalcava M.B., Mukund [place] [address] [place] [address] [phone] (Wo rk) 08/01/2022 Office Visit Transplant Tony Rubalcava M.B., Mukund [place] [address] [place] [address] [phone] (Wo rk) 08/01/2022 Clinical Support Transplant Tony Rubalcava M.B., Sydnie, Mukund [address] [place] [address] [phone] (Wo rk) documented as of this encounter Procedures Procedure Name Priority Date/Time Associated Comments Diagnosis BMD BONE DENSITY RAD - Routine 04/21/2022 9:05 Transplant Renal Res ults for this SPINE HIPS (most inpatients AM CDT ([facility]) procedure a re in and all the results outpatients) section. documented in this encounter Results BMD Bone Density Spine Hips (04/21/2022 9:05 [...] Mineral Density (BMD) analysis perf ormed on Estech with serial number [id number]. ? FINDINGS: Left Hip: Femur Neck: BMD [...] including images and graphs, is available in [employer]. In the absence of other causes of [...] Mineral Density (BMD) analysis perf ormed on Este[employer] with serial number [id number]. FINDINGS: Left Hip: Femur Neck: BMD = [...] including images and graphs, is available in [employer]. In the absence of other causes of [...] Neck Lef t) Patricia WEST[place]ALL DXA PROCEDURES documented in this encounter Visit Diagnoses Diagnosis Transplant Renal (HCC) documented in this encounter Additional Health Concerns Assessment Noted Time PHQ-9 Depression Total Score: 3 04/07/2021 9:37 AM CDT documented as of this encounter Care Teams Health Safety Engineer Relationship Specialty Start Date End Date Elsewhere, Pcp PCP - General 09/17/19 [facility] External Provider Laboratory Medicine 04/11/22 04/24/22 documented as of this encounter
--- OUTSIDE RECORDS SUMMARY | 2022-05-25 13:00 | XMS_ITS | Encounter Summary ---
:1960 Author Organization [facility] Address [address] [place] [address] Care Team Providers Name Role Phone Elsewhere, Pcp Primary Care Provider Unavailable Encounter Details Date Type Department Care Team Description 04/18/2022 Specialty Pharmacy [facility] Bisi Schultz, [address] Flora Borja Pharm.D., [place] [phone] [place] [address] [place] [phone] (Wo rk) Social History Tobacco Use Types [...] How often do you attend episcopalian or confucianism 1 to 4 times per [...] place to sleep or slept in a usp (including now)? Education Answer Date Recorded What is the highest level of school you have GED or equivale nt 01/26/2019 completed or the highest degree you have received? Sex Assigned at Date Recorded Female 12/23/2021 4:18 AM CDT documented as of this encounter Miscellaneous Notes Telephone Encounter - Bisi Schultz Pharm.D., R.Ph. - 04/18/2022 12:10 PM CDT [facility] Specialty Pharmacy service discontinued at this time. Patient using other pharmacy. documented in this encounter Plan of Treatment Upcoming Encounters Date Type Specialty Care Team Description 06/01/2022 Telemedicine Pharmacy An Nicholas APRN, C.N.P., D.N.P., M.S.N. [address] [place] [address] [phone] (Nicolas wen) 07/31/2022 Lab Laboratory Medicine Tony Rubalcava M. B., Ch.B., M.D. [address] [place] [address] [phone] (Nicolas wen) 07/31/2022 Lab Laboratory Medicine Tony Rubalcava M. B., Ch.B., M.D. [address] [place] [address] [phone] (Nicolas wen) 07/31/2022 Office Visit Transplant Tony Rubalcava M.B., Sydnie, Mukund [address] [place] [address] [phone] (Wo rk) 07/31/2022 Appointment Radiology Tony Rubalcava M.B., Sydnie, Mukund [address] [place] [address] [phone] (Wo rk) 08/01/2022 Office Visit Transplant Tony Rubalcava M.B., Sydnie, Mukund [address] [place] [address] [phone] (Wo rk) 08/01/2022 Clinical Support Transplant Tony Rubalcava M.B., Sydnie, Mukund [address] [place] [address] [phone] (Wo rk) documented as of this encounter Visit Diagnoses Not on filedocumented in this encounter Additional Health Concerns Assessment Noted Time PHQ-9 Depression Total Score: 3 04/07/2021 9:37 AM CDT documented as of this encounter Care Teams Supervisor Twisting Department Relationship Specialty Start Date End Date Elsewhere, Pcp PCP - General 09/17/19 [facility] External Provider Laboratory Medicine 04/11/22 04/24/22 documented as of this encounter
--- OUTSIDE RECORDS SUMMARY | 2022-05-25 13:00 | XMS_ITS | Encounter Summary ---
:1960 Author Organization [facility] Address [address] [place] [address] Care Team Providers Name Role Phone Elsewhere, Pcp Primary Care Provider Unavailable Encounter Details Date Type Department Care Team Description 04/19/2022 Hospital Encounter [facility], Alvaro Jennings ([facility]) [facility] [address] [place] [address], [place], [place] Floor [phone] [address] [facility] [phone] [place], [place] (Work) [phone] Social History Tobacco Use Types Packs/Day Years [...] How often do you attend episcopalian or uatsdin 1 to 4 times per year 12/23/2021 [...] as needed for pain Indication: Acute Pain. predniSONE (DELTASONE) Take 1-4 tablets 120 tablet [...] on renal function. tacrolimus (PROGRAF) 1 Take 4 capsules (4 180 capsule 1 03/2104/21/2022 mg capsule mg total) by mouth every [...] 06/01/2022 Telemedicine Pharmacy An Nicholas APRN, C.NDaviPDavi, Michelle.N.P., M.S.N. [address] [place] [address] [phone] (Wo rk) 07/31/2022 Lab Laboratory Medicine Tony Rubalcava M. B., Sydnie, Mukund [address] [place] [address] [phone] (Wo rk) 07/31/2022 Lab Laboratory Medicine Tony Rubalcava M. B., Sydnie, Mukund [address] [place] [address] [phone] (Wo rk) 07/31/2022 Office Visit Transplant Tony Rubalcava M.B., Sydnie, Mukund [address] [place] [address] [phone] (Wo rk) 07/31/2022 Appointment Radiology Tony Rubalcava M.B., Sydnie, Mukund [address] [place] [address] [phone] (Wo rk) 08/01/2022 Office Visit Transplant Tony Rubalcava M.B., Sydnie, Mukund [address] [place] [address] [phone] (Wo rk) 08/01/2022 Clinical Support Transplant Tony Rubalcava M.B., Sydnie, Mukund [address] [place] [address] [phone] (Wo rk) documented as of this encounter Procedures Procedure Name Priority Date/Time Associated Comments Diagnosis RENAL FUNCTION Routine 04/19/2022 7:58 AM Transplant Renal Res ults for this PANEL, S CDT (HCC) procedure are i n the results section. TACROLIMUS LEVEL, B Routine 04/19/2022 7:58 AM Transplant Jessica l Results for this CDT (HCC) procedure are i n the results section. CBC WITH Routine 04/19/2022 7:58 AM Transplant Renal Resul ts for this DIFFERENTIAL, B CDT (HCC) procedure ar e in the results section. MAGNESIUM, S Routine 04/19/2022 7:58 AM Transplant Renal Resul ts for this CDT (HCC) procedure are i n the results section. documented in this encounter Results Tacrolimus, B (04/19/2022 7:58 AM CDT) athologist Signature Tacrolimus, B 10.1 5.0-15.0 04/19/2022 [facility] (Trough) 12:50 PM CDT ng/mL [...] performa nce characteristics determined by [facility] in a manner consistent with CLIA [...] City/State/ZIP Code Phon e Number [facility] [address] [place] [address] [facility] [place] [address] Laboratory Medicine and Pathology [address] [place] Magnesium (04/19/2022 7:58 AM CDT) athologist Signature Magnesium, S 2.1 1.7 - 2.3 04/19/2022 DTL mg/dL 9:41 AM CDT Specimen Anatomical Collection Method Collection Time Receive d Time (Source) Location / / Volume Laterality Blood (Blood, 04/19/2022 7:58 AM 04/19/20 8:27 Venous) CDT AM CDT Patricia Cox M.D. LAB BLOOD ADD-ON Performing Organization Address City/State/ZIP Code Phon e Number [facility] - 200 [place], [place] [address] [facility] [place] [address] [facility] 200 [facility] (ABNORMAL) Renal Function Panel (04/19/2022 7:58 AM [...] (Inorganic), S 4.4 2.5 - 4.5 mg/dL 08/31/20 22 9:41 AM CDT DTL Specimen Anatomical Collection Method Collection Time Receive d Time (Source) Location / / Volume Laterality Blood (Blood, 04/19/2022 7:58 AM 04/19/20 22 8:27 Venous) CDT AM CDT Patricia Cox M.D. LAB BLOOD ADD-ON Performing Organization Address City/State/ZIP Code Phon e Number [facility] - 200 [place], [place] [address] [facility] [place] [address] [facility] 200 [facility] (ABNORMAL) CBC with Differential, Blood (04/19/2022 7:58 AM CDT) [facility] gist Method Time Signature Hemoglobin 9.6 [...] City/State/ZIP Code Phon e Number [facility] - [address] [place], [place] [address] [facility] [place] [address] [facility] [address] documented in this encounter Visit Diagnoses Diagnosis Transplant Renal (HCC) documented in this encounter Additional Health Concerns Assessment Noted Time PHQ-9 Depression Total Score: 3 04/07/2021 9:37 AM CDT documented as of this encounter Care Teams Concrete Truck Driver Relationship Specialty Start Date End Date Elsewhere, Pcp PCP - General 09/17/19 [facility] External Provider Laboratory Medicine 04/11/22 04/24/22 documented as of this encounter
--- OUTSIDE RECORDS SUMMARY | 2022-05-25 13:00 | XMS_ITS | Encounter Summary ---
:1960 Author Organization [facility] Address [address] [place] [address] Care Team Providers Name Role Phone Elsewhere, Pcp Primary Care Provider Unavailable Reason for Visit Transplant (Routine) - Closed Specialty Diagnoses / Procedures Referred By Contact Refer red To Contact [facility] CHRISTOPHER, C.N.P., D.N.P., M.S.N. [address] [place] [phone] Referral ID Status Reason Start Date Expiration Date Visits Requ ested Visits Authorized [id number] Closed 04/07/2022 04/06/2025 1 1 Encounter Details Date Type Department Care Team Description 04/14/2022 Clinical Support Ata Richard, Ks melvin Yap APRN, C.N.P., D.N.P., M.S.N. [address] [place] [phone] Transplant Renal Center for Jennifer Urbina L.I.C.S.WDavi, M.S.W. [address] [place] [phone] (HCC) (Primary Dx) Transplantation and Clinical Regeneration in [facility] [address] [place] [phone] Social History Tobacco Use Types Packs/Day Years Used Date Smoking Tobacco: Former Cigarettes 0.5 30 Star rebceca: 01/29/1975 Smokeless Tobacco: Never Alcohol Use Standard [...] 12/23/2021 relatives? How often do you attend scientology or synagogue 1 to 4 times per year 12/23/2021 services? Do you belong to any clubs or organizations such No 12/23/2021 as scientology groups, unions, fraternal or athletic groups, or [...] documented as of this encounter Progress Notes Jennifer Urbina L.I.MilliS.Jonh., M.S.W. - 04/14/2022 8:30 AM CDT SUBJECTIVE CHIEF COMPLAINT / REASON FOR VISIT REASON FOR ASSESSMENT Patient is seen as part of routine social work follow up post-transplant. Please see previous socialwork notes for more complete psychosocial information. PERSONS INTERVIEWED Met with patient and her caregiver/friend Milan HISTORY OF PRESENT ILLNESS Transplant organ: kidney Transplant date: 04/06/2022 (Kidney), 04/28/2008 (Kidney) DISCUSSION milk house worker provided education regarding End Stage Renal Disease Medicare. We reviewed the benefits of medical part B, and 80% immunosuppressant coverage through part B. Medicare ends after 36 monthsunless the patient is greater than age 65 or permanently disabled. Patient completed the CMS 2728 form. Patient declined a copy of the form for their records. We reviewed and they voice understanding that they will need to follow-up with their local social security office to complete the application process. Patient reports that her hospitalization and recovery have been going well. She was previously on dialysis and is looking forward to no longer requiring it and being able to travel. She and her caregiver have been staying at the [facility] and report that this is going well and they have no financial concerns. Provided education regarding communication with the donor family through [employer] if desired and provided [employer]'s packet on this topic for guidance. OBJECTIVE Patient reports to be coping well with her transplant and reports no current mood concerns. PHQ 8 Score: 7 ABILIO 7 Score: 6 AUDIT-C: AUDIT ; Action:Interpretation: Patient denies suicidal ideation. Patient is doing well with medications and following the transplant team's advice. ASSESSMENT / PLAN ASSESSMENT Patient is coping adequately with recovery post transplant. Has good support in place. The following needs have been identified: Patient does not have financial barriers or concerns at this time. PLAN -Encouraged patient to contact social work job titles Jana Bass in the future as necessary if needs or questions arise. -Social work will facilitate sending CMS 2728 form to patient's local Social Security office. Face to face time (for billing purposes) 40 minutes total time 40 minutes spent in counseling with patient and patient's family documented in this encounter Plan of Treatment Upcoming Encounters Date Type Specialty Care Team Description 06/01/2022 Telemedicine Pharmacy An Nicholas APRN, C.N.P., D.N.P., M.S.N. [address] [place] [address] [phone] (Wo rk) 07/31/2022 Lab Laboratory Medicine Tony Rubalcava M. B., Sydnie, Mukund [address] [place] [address] [phone] (Wo rk) 07/31/2022 Lab Laboratory Medicine Tony Rubalcava M. B., Sydnie, Mukund [address] [place] [address] [phone] (Wo rk) 07/31/2022 Office Visit Transplant Tony Rubalcava M.B., Sydnie, Mukund [address] [place] [address] [phone] (Wo rk) 07/31/2022 Appointment Radiology Tony Rubalcava M.B., Sydnie, Mukund [address] [place] [address] [phone] (Wo rk) 08/01/2022 Office Visit Transplant Tony Rubalcava M.B., Sydnie, MDebra [address] [place] [address] [phone] (Wo rk) 08/01/2022 Clinical Support Transplant Tony Rubalcava M.B., Sydnie, MDebra [address] [place] [address] [phone] (Wo rk) documented as of this encounter Visit Diagnoses Diagnosis Transplant Renal (HCC) - Primary documented in this encounter Additional Health Concerns Assessment Noted Time PHQ-9 Depression Total Score: 3 04/07/2021 9:37 AM CDT documented as of this encounter Care Teams Registration Representative Relationship Specialty Start Date End Date Elsewhere, Pcp PCP - General 09/17/19 [facility] External Provider Laboratory Medicine 04/11/22 04/24/22 documented as of this encounter
--- OUTSIDE RECORDS SUMMARY | 2022-05-25 13:00 | XMS_ITS | Encounter Summary ---
:1960 Author Organization [facility] Address [address] [place] [address] Care Team Providers Name Role Phone Elsewhere, Pcp Primary Care Provider Unavailable Encounter Details Date Type Department Care Team Description 04/19/2022 Clinical Communication Ata Hendrix, [facility], Transplantation and Mukund Clinical Regeneration in [address] [place] [address] [place] [phone] [place] [address] [phone] Social History Tobacco Use Types Packs/Day Years [...] 12/23/2021 relatives? How often do you attend synagogue or samaritan 1 to 4 times per year 12/23/2021 services? Do you belong to any clubs or organizations such No 12/23/2021 as synagogue groups, unions, fraternal or athletic groups, or [...] Nicholas APRN C.N.P., D.N.P., M.S.N. [address] [place] [address] [phone] (Wo rk) 07/31/2022 Lab Laboratory Medicine Tony Rubalcava M. B., ChBurke, MDebra [address] [place] [address] [phone] (Wo rk) 07/31/2022 Lab Laboratory Medicine Tony Rubalcava M. B., ChBurke, MDebra [address] [place] [address] [phone] (Wo rk) 07/31/2022 Office Visit Transplant Tony Rubalcava M.B., ChBurke, MDebra [address] [place] [address] [phone] (Wo rk) 07/31/2022 Appointment Radiology Tony Rubalcava M.B., Mukund Otoole [address] [place] [address] [phone] (Wo rk) 08/01/2022 Office Visit Transplant Tony Rubalcava M.B., Mukund [place] [address] [place] [address] [phone] (Wo rk) 08/01/2022 Clinical Support Transplant Tony Rubalcava M.B., Mukund [place] [address] [place] [address] [phone] (Wo rk) documented as of this encounter Visit Diagnoses Not on filedocumented in this encounter Additional Health Concerns Assessment Noted Time PHQ-9 Depression Total Score: 3 04/07/2021 9:37 AM CDT documented as of this encounter Care Teams Tractor Mechanic Apprentice Relationship Specialty Start Date End Date Elsewhere, Pcp PCP - General 09/17/19 [facility] External Provider Laboratory Medicine 04/11/22 04/24/22 documented as of this encounter
--- OUTSIDE RECORDS SUMMARY | 2022-05-25 13:00 | XMS_ITS | Encounter Summary ---
:1960 Author Organization [facility] Address [address] [place] [address] Care Team Providers Name Role Phone Elsewhere, Pcp Primary Care Provider Unavailable Encounter Details Date Type Department Care Team Description 04/17/2022 Hospital Encounter [facility] Mcdonald [facility], Gunner Barron APRN, ([facility], [facility], [facility], [place] [address] [address] [place], [place] [address] [facility] [address] [place], [place] [phone] (Work) [phone] Social History Tobacco Use Types Packs/Day Years [...] do you talk on Twice a wee trev 12/23/2021 the phone with family, friends, or neighbors? How often do you get together with friends or Patient refuse d 12/23/2021 relatives? How often do you attend mu-ism or christianity 1 to 4 times per [...] place to sleep or slept in a correction (including now)? Education Answer Date Recorded What [...] Nicholas APRN, C.N.P., D.N.P., M.S.N. [address] [place] [address] [phone] (Wo rk) 07/31/2022 Lab Laboratory Medicine Tony Rubalcava M. B., Sydnie, Mukund [address] [place] [address] [phone] (Wo rk) 07/31/2022 Lab Laboratory Medicine Tony Rubalcava M. B., Sydnie, Mukund [address] [place] [address] [phone] (Wo rk) 07/31/2022 Office Visit Transplant Tony Rubalcava M.B., Sydnie, Mukund [address] [place] [address] [phone] (Wo rk) 07/31/2022 Appointment Radiology Tony Rubalcava M.B., Sydnie, Mukund [address] [place] [address] [phone] (Wo rk) 08/01/2022 Office Visit Transplant Tony Rubalcava M.B., Sydnie, Mukund [address] [place] [address] [phone] (Wo rk) 08/01/2022 Clinical Support Transplant Tony Rubalcava M.B., Sydnie, Mukund [address] [place] [address] [phone] (Wo rk) documented as of this encounter Procedures Procedure Name Priority Date/Time Associated Comments Diagnosis RENAL FUNCTION Routine 04/17/2022 7:43 AM Transplant Renal Res ults for this PANEL, S CDT (HCC) procedure are i n the results section. TACROLIMUS LEVEL, B Routine 04/17/2022 7:43 AM Transplant Jessica l Results for this CDT (HCC) procedure are i n the results section. CBC WITH Routine 04/17/2022 7:43 AM Transplant Renal Resul ts for this DIFFERENTIAL, B CDT (HCC) procedure ar e in the results section. MAGNESIUM, S Routine 04/17/2022 7:43 AM Transplant Renal Resul ts for this CDT (HCC) procedure are i n the results section. documented in this encounter Results Tacrolimus, B (04/17/2022 7:43 AM CDT) athologist Signature Tacrolimus, B 10.7 5.0-15.0 04/17/2022 [facility] (Trough) 1:01 PM CDT ng/mL Comment: ----ADDITIONAL [...] its performa nce characteristics determined by [facility] in a manner consistent with CLIA requirements. This test has not been cleared or approved by the [place] d and Drug Administration. Specimen Anatomical Collection Method Collection Time Receive d Time (Source) Location / / Volume Laterality Blood (Blood, 04/17/2022 7:43 AM 04/17/20 9:59 Venous) CDT AM CDT Jeovanny Mcdonald APRN, C.N.P., M.S.N. LAB BLOOD NON ADD -ON Performing Organization Address City/State/ZIP Code Phon e Number [facility] [address] [place] [address] [facility] [facility] [place] [address] Laboratory Medicine and Pathology [address] [place] Magnesium (04/17/2022 7:43 AM CDT) athologist Signature Magnesium, S 2.0 1.7 - 2.3 04/17/2022 DTL mg/dL 9:15 AM CDT Specimen Anatomical Collection Method Collection Time Receive d Time (Source) Location / / Volume Laterality Blood (Blood, 04/17/2022 7:43 AM 04/17/20 8:23 Venous) CDT AM CDT Jeovanny Barron Harry WHITE C.N.P., M.S.N. LAB BLOOD ADD-ON Performing Organization Address City/State/ZIP Code Phon e Number [facility] LABORATORIES - [address] [place], [place] [address] [facility] [place] [address] Laboratories-[facility] [address] (ABNORMAL) Renal Function Panel (04/17/2022 7:43 [...] 5.5 (H) 2.5 - 4.5 mg/dL 04/17/20 9:15 AM CDT DTL Specimen Anatomical Collection Method Collection Time Receive d Time (Source) Location / / Volume Laterality Blood (Blood, 04/17/2022 7:43 AM 04/17/20 22 8:23 Venous) CDT AM CDT Jeovanny Mcdonald APRN, C.N.P., M.S.N. LAB BLOOD ADD-ON Performing Organization Address City/State/ZIP Code Phon e Number [facility] LABORATORIES - [address] [place], [place] [address] [facility] [address] Laboratories-[facility] 200 [facility] (ABNORMAL) CBC with Differential, Blood (04/17/2022 7:43 AM CDT) [facility] Method Time Signature Hemoglobin 9.3 (L) 11.6 [...] [facility] - [address] [place], [place] [address] [address] [place] [address] Laboratories-[facility] [address] documented in this encounter Visit Diagnoses Diagnosis Transplant Renal (HCC) documented in this encounter Additional Health Concerns Assessment Noted Time PHQ-9 Depression Total Score: 3 04/07/2021 9:37 AM CDT documented as of this encounter Care Teams On Awake Counselor Relationship Specialty Start Date End Date Elsewhere, Pcp PCP - General 09/17/19 [facility] External Provider Laboratory Medicine 04/11/22 04/24/22 documented as of this encounter
--- OUTSIDE RECORDS SUMMARY | 2022-05-25 13:00 | XMS_ITS | Encounter Summary ---
:1960 Author Organization [facility] Address [address] [place] [id number] Care Team Providers Name Role Phone Elsewhere, Pcp Primary Care Provider Unavailable Reason for Visit Transplant (Routine) - Closed Specialty Diagnoses / Procedures Referred By Contact Refer red To Contact Transplant Surgery / Mary [facility] Transplant Mukund Gomez [address] [place] [address] Referral ID Status Reason Start Date Expiration Date Visits Requ ested Visits Authorized [id number] Closed 04/19/2022 04/18/2025 1 1 Encounter Details Date Type Department Care Team Description 04/21/2022 Office Visit Ata Hendrix, [facility] are Transplant Center for Transplantation Maddie Ngo ([facility] (Primary and Clinical Regeneration M.D. 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 200 [facility] [address] [place] [phone] Social History Tobacco Use Types Packs/Day Years [...] How often do you attend worship or tenriism 1 to 4 times per year 12/23/2021 [...] Sign Reading Time Taken Comments Blood Pressure 152/92 04/21/2022 11:43 AM CDT Pulse 79 04/21/2022 11:43 AM CDT Temperature 36.5 ??C (97.7 ??F) 04/21/2022 11:43 AM CDT Respiratory Rate - - Oxygen Saturation - - Inhaled Oxygen Concentration - - Weight 97.4 kg (214 lb 11.7 oz) 04/21/2022 11:43 AM CDT Height - - Body Mass Index 35.6 04/11/2022 8:23 AM CDT documented in this encounter Progress Notes Jeni Cantrell M.D. - 04/21/2022 11:30 AM CDT Kidney/Pancreas Transplant Progress Note [...] recover well. Reports some diarrhea over past couple of days, that has now improved. Edema has resolved. She has good energylevel. Current Outpatient Medications on File Prior to [...] 5 tacrolimus (PROGRAF) 1 mg capsule Take 4 capsules (4 mg total) by mouth every 12 (twelve) hours. Dose may change based on levels. 180 capsule 1 valGANciclovir (VALCYTE) 450 mg tablet Take 1 tablet (450 mg total) by mouth 3 (three) times a week. Dose may be adjusted based on kidney function. Stop date: 07/08/22 30 tablet 2 No current facility-administered medications on file prior to visit. OBJECTIVE VITAL SIGNS Temperature: [36.5 ??C] 36.5 ??C Blood Pressure: (152)/(92) 152/92 Weight: [97.4 kg] 97.4 kg BMI (Calculated): [36 kg/m??] 36 kg/m?? Pulse Rate: [79] 79 General: awake, alert, oriented, in no acute distress Heart:normal and regular rate and rhythm Lung: clear to auscultation Abdomen: healing well, no significant drainage, no dehiscence, mild erythema and bruises around incision, moderate tenderness around the incision, no leaking. 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 We will continue to monitor Urine culture grew Staphylococcus epidermidis [id number] CFU/mL. Repeat urine culture on 04/17 showed no growth to date. Plan: - The the patient will follow up with us on 04/21/2022 with dismissal labs and investigation. - We plan for dismissal early next week. - The patient will get stent removal on 04/27/2022. - we will reschedule Iothalamate clearance, as her kidney function is not stable yet #3 Incision/urinary Incision looks great with no sign of infection or leaking. #4 Immunosuppression, Basiliximab induction Maintenance immunosuppression includes tacrolimus, MMF, and steroids. Tacrolimus trough goal 8-10 first month and 6-8 thereafter. Currently taking tacrolimus 4 mg p.o. b.i.d. Tacrolimus level this morning was 11.7; we will decrease to 3 mg twice a day from 4 mg twice a day #5 Infection prophylaxis, CMV: D-/ R+, EBV D+/R+ Continue Valcyte x3 month, Bactrim x6 month. #6 Hypertension Blood pressure well controlled #7 Cardiovascular #8 Electrolyte management Hypokalemia- likely related to recent diarrhea, that has now resolved Potassium is 2.9 mg/dL, and has been running relatively low since transplant. She will be started on potassium supplements, 40 mEq daily, for 7 days; her labs will be re-evaluated during dismissal on Sunday #9 Hematology (anemia secondary to CKD, anemia [...] We will plan on seeing patient on 04/25/2022 with labwork documented in this encounter Plan of Treatment Upcoming Encounters Date Type Specialty Care Team Description 06/01/2022 Telemedicine Pharmacy An Nicholas APRN, C.NDaviPDavi, WhitneyN.P., M.S.N. [address] [place] [address] [phone] (Wo rk) 07/31/2022 Lab Laboratory Medicine Tony Rubalcava M. B., Sydnie, MDebra [address] [place] [address] [phone] (Wo rk) 07/31/2022 Lab Laboratory Medicine Tony Rubalcava M. B., Sydnie, Mukund [address] [place] [address] [phone] (Wo rk) 07/31/2022 Office Visit Transplant Tony Rubalcava M.B., Sydnie, MDebra [address] [place] [address] [phone] (Wo rk) 07/31/2022 Appointment Radiology Tony Rubalcava M.B., ChBurke, Mukund [address] [place] [address] [phone] (Wo rk) 08/01/2022 Office Visit Transplant Tony Rubalcava M.B., Sydnie, MDebra [address] [place] [address] [phone] (Wo behzad) 08/01/2022 Clinical Support Transplant Tony Rubalcava M.B., Sydnie, MDebra [address] [place] [address] [phone] (Nicolas wen) documented as of this encounter Visit Diagnoses Diagnosis Aftercare Transplant Renal (HCC) - Prima ry documented in this encounter Additional Health Concerns Assessment Noted Time PHQ-9 Depression Total Score: 3 04/07/2021 9:37 AM CDT documented as of this encounter Care Teams Conversion Worker Relationship Specialty Start Date End Date Elsewhere, Pcp PCP - General 09/17/19 [facility] External Provider Laboratory Medicine 04/11/22 04/24/22 documented as of this encounter
--- OUTSIDE RECORDS SUMMARY | 2022-05-25 13:00 | XMS_ITS | Encounter Summary ---
:1960 Author Organization [facility] Address [address] [place] [address] Care Team Providers Name Role Phone Elsewhere, Pcp Primary Care Provider Unavailable Reason for Referral Transplant (Routine) - Closed Specialty Diagnoses / Procedures Referred By Contact Refer red To Contact Transplant Surgery / Diagnoses Transplant Renal (HCC) [facility] Transplant Mukund Gomez [address] [place] [phone] Referral ID Status Reason Start Date Expiration Date Visits Requ ested Visits Authorized [id number] Closed 04/19/2022 04/19/2023 1 1 Transplant (Routine) - Closed Specialty Diagnoses / Procedures Referred By Contact Refer red To Contact Transplant Surgery / Diagnoses Transplant Renal (HCC) [facility] Transplant Mukund Gomez [address] [place] [address] Referral ID Status Reason Start Date Expiration Date Visits Requ ested Visits Authorized [id number] Closed 04/19/2022 04/19/2023 1 1 Outpatient (Routine) - Closed Specialty Diagnoses / Procedures Referred By Contact Refer red To Contact Diagnoses [facility]CC[facility] BMD Bone Density Spine Hips M.DDavi [address] [place] [phone] Referral ID Status Reason Start Date Expiration Date Visits Requ ested Visits Authorized [id number] Closed 04/19/2022 04/19/2023 1 1 Outpatient (Routine) - Closed Specialty Diagnoses / Procedures Referred By Contact Refer red To Contact Diagnoses Transplant Renal ([facility]) [facility] Procedures Short renal clearance: Iothalamate (Renal Studies Unit) Mukund [address] [place] [phone] Referral ID Status Reason Start Date Expiration Date Visits Requ ested Visits Authorized [id number] Closed 04/19/2022 04/19/2023 1 1 Transplant (Routine) - Closed Specialty Diagnoses / Procedures Referred By Contact Refer red To Contact Transplant Surgery / Mary Cox Transplant Mukund Gomez [address] [place] [phone] Referral ID Status Reason Start Date Expiration Date Visits Requ ested Visits Authorized [id number] Closed 04/19/2022 04/18/2025 1 1 Reason for Visit Transplant (Routine) - Closed Specialty Diagnoses / Procedures Referred By Contact Refer red To Contact Transplant Surgery / Mary Cox Transplant Mukund Gomez [address] [place] [phone] Referral ID Status Reason Start Date Expiration Date Visits Requ ested Visits Authorized [id number] Closed 04/17/2022 04/16/2025 1 1 Encounter Details Date Type Department Care Team Description 04/19/2022 Office Visit Ata Hendrix, [facility] for Transplantation Jeni ( [facility]) (Primary Dx) and Clinical Regeneration Mukund in [facility] bo[address] [place] [phone] Social History Tobacco Use Types Packs/Day Years [...] How often do you attend caodaism or baptist 1 to 4 times per year 12/23/2021 [...] Sign Reading Time Taken Comments Blood Pressure 160/92 04/19/2022 2:28 PM CDT Pulse 80 04/19/2022 2:28 PM CDT Temperature 36.3 ??C (97.3 ??F) 04/19/2022 2:28 PM CDT Respiratory Rate - - Oxygen Saturation - - Inhaled Oxygen Concentration - - Weight 97.5 kg (214 lb 15.2 oz) 04/19/2022 2:28 PM CDT Height - - Body Mass Index 35.64 04/11/2022 8:23 AM CDT documented in this encounter Progress Notes Patricia Cox M.D. - 04/19/2022 2:30 PM CDT Kidney/Pancreas Transplant Progress Note SUBJECTIVE [...] post-transplant monitoring; the patient has been feeling feeling great. Her leg swelling is improved. She denies any fever, nausea, vomiting, diarrhea, abdominal pain. She had big bowel movement yesterday. She has to go to the restroom for urination every 2 hours for both day and night. Current Outpatient Medications on File Prior to [...] Temperature: [36.3 ??C] 36.3 ??C Blood Pressure: (160)/(92) 160/92 Weight: [97.5 kg] 97.5 kg BMI (Calculated): [36 kg/m??] 36 kg/m?? Pulse Rate: [80] 80 General: awake, alert, oriented, in no acute distress Heart:normal and regular rate and rhythm Lung: clear to auscultation Abdomen: healing well, no significant drainage, no dehiscence, mild erythema and bruises around incision, moderate tenderness around the incision, no leaking. 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 Making good urine output. Having slow graft function. Does not require any hemodialysis. Urine culture grew Staphylococcus epidermidis [id number] CFU/mL. Repeat urine culture on 04/17 showed no growth to date. Creatinine 4.62 from 5.6. Still having stents at both previous and new allografts. After discussion with Dr. Felipe, he does not think the patient needs to get stent out earlier. Patient will have bothstents out on 04/27/2022. Plan: - The the patient will follow up with us on 04/21/2022 with dismissal labs and investigation. - We plan for dismissal early next week. - The patient will get stent removal on 04/27/2022. - Edema is improved. We will cancel ultrasound lower extremity on 05/11/2022. #3 Incision/urinary Incision looks great with no sign of infection or leaking. #4 Immunosuppression, Basiliximab induction Maintenance immunosuppression includes tacrolimus, MMF, and steroids. Tacrolimus trough goal 8-10 first month and 6-8 thereafter. Currently taking tacrolimus 4 mg p.o. b.i.d. Tacrolimus level this morning was this morning 10.1 but trending down from 10.7. Plan: - We will continue with tacrolimus 4 mg p.o. b.i.d. #5 Infection prophylaxis, CMV: D-/ R+, EBV D+/R+ Continue Valcyte x3 month, Bactrim x6 month. #6 Hypertension #7 Cardiovascular Blood pressure in the clinic today at 160/92. Patient is taking nebivolol 5 mg p.o. daily for blood pressure. We will continue this regimen for now. If the blood pressure remains high we may consider adding amlodipine 5 mg p.o. daily. #8 Electrolyte management (hypomagnesemia, hyperkalemia, hypophosphatemia) Bicarbonate 24 from 24. Potassium 3.5. Calcium 9.6, magnesium 2.1. #9 Hematology (anemia secondary to CKD, anemia secondary iron deficiency, etc.) Hemoglobin 9.6 from 9.3. We will continue observing for now. #10 Disposition We will plan on seeing patient on 04/21/2022 with lab work #11 History of chronic [...] urinary/reproductive issues: Yes Jeni Cantrell M.D. - 04/19/2022 2:30 PM CDT Patient was seen and discussed with Dr. Mekraksakit. She is doing quite well. Denies any significantconcerns. Creatinine is coming down. Edema resolved. We will plan to initiate dismissal labs, and dismiss next week documented in this encounter Plan of Treatment Upcoming Encounters Date Type Specialty Care Team Description 06/01/2022 Telemedicine Pharmacy An Nicholas APRN C.N.PDavi, D.N.P., M.S.N. [address] [place] [phone] (Wo rk) 07/31/2022 Lab Laboratory Medicine Tony Rubalcava M. B., Sydnie, Mukund [address] [place] [phone] (Wo rk) 07/31/2022 Lab Laboratory Medicine Tony Rubalcava M. B., Sydnie, Mukund [address] [place] [phone] (Wo rk) 07/31/2022 Office Visit Transplant Tony Rubalcava M.B., Sydnie, Mukund [address] [place] [phone] (Wo rk) 07/31/2022 Appointment Radiology Tony Rubalcava M.B., Sydnie, Mukund [address] [place] [phone] (Wo rk) 08/01/2022 Office Visit Transplant Tony Rubalcava M.B., Sydnie, Mukund [address] [place] [phone] (Wo rk) 08/01/2022 Clinical Support Transplant Tony Rubalcava M.B., Ch.BMukund Tomlinson [address] [place], [place] [phone] (Wo rk) Scheduled Orders Name Type Priority Associated Diagnoses Order S chedule Short renal clearance: Procedures Routine Transplant Renal ( [facility]) Expected: Iothalamate (Renal , Expires: Studies Unit) 07/19/2023 Scheduled Referrals Name Type Priority Associated Order Schedule Diagnoses Transplant Kidney / Outpatient Referral Routine E xpected: pancreas office visit 2021, (clinic) Expires: 07/19/2023 Transplant - Nurse Outpatient Referral Routine Transplant Jessica l Expected: coordinator consult ([facility]) 04/19/20, (clinic) Expires: 07/19/2023 Transplant - Surgery Outpatient Referral Routine Transplant Re nal Expected: consult (clinic) ([facility]) 04/19/2022, Expires: 07/19/2023 documented as of this encounter Results (ABNORMAL) Protein, Total, 24 HR, Urine (04/22/2022 [...] Organization Address City/State/ZIP Code Phon e Number [facility] - [address] [place], [place] [address] [facility] [place] [address] [facility] [address] (ABNORMAL) Albumin, 24 Hour Collection, Urine (04/22/2022 11:39 AM CDT) athologist Signature Albumin, 24 256 (H) <30 mg/24 04/23/2022 DTL Hr, U h 10:02 AM CDT Comment: ----ADDITIONAL INFORMATION---- This test has been modified from the man ufacturer's instructions. Its performance characteri stics were determined by [facility] in a manner co nsistent [...] Organization Address City/State/ZIP Code Phon e Number [facility] - [address] [place] [address] [facility] [place] [address] [facility] [address] (ABNORMAL) Urinalysis with Microscopic: Urine, Midstream (04/21/2022 11:05 AM CDT) [facility] gist Method Time Signature Source Midstream 04/21/2022 [...] M.D. LAB URINE ORDERABLES Performing Organization Address City/[facility] Phon e Number [facility] - [address] [place] [address] [address] Bacterial Culture, Aerobic + Susc, Urine (04/21/2022 11:05 AM CDT) [facility] gist Method Time Signature Urine Culture No growth 04/22/2022 DT after 1 day 12:40 PM CDT of incubation. Specimen Anatomical Collection Method Collection Time Receive d Time (Source) Location / / Volume Laterality Urine (Urine, 04/21/2022 11:05 04/21/2022 2:02 Midstream) AM CDT PM CDT Comment: Specimen Source Site: Urine Patricia Cox M.D. LAB MICROBIOLOGY - GENERAL O RDERABLES Performing Organization Address City/[facility] Phon e Number [facility] - [address] [place] [address] BMD Bone Density Spine Hips (04/21/2022 [...] Mineral Density (BMD) analysis perf ormed on SmartCloud with serial number [id number]. ? FINDINGS: Left Hip: Femur Neck: BMD [...] including images and graphs, is available in [employer]. In the absence of other causes of [...] Mineral Density (BMD) analysis perf ormed on SmartCloud with serial number [id number]. FINDINGS: Left Hip: Femur Neck: BMD = [...] including images and graphs, is available in [employer]. In the absence of other causes of [...] Osteoporosis DualFemur (region: Neck Lef t) Patricia W[place] DXA PROCEDURES (ABNORMAL) Renal Function Panel (04/21/2022 7:45 AM CDT) Analysis Performed At Patho logist Time Signature Potassium, S 2.9 (L) 3.6 - 5.2 04/21/2022 DTL mmol/L 8:42 AM CDT Sodium, S 141 135 - 145 04/21/2022 DTL mmol/L 8:42 AM CDT Chloride, S 98 98 - 107 04/21/2022 DTL mmol/L 8:42 AM CDT Bicarbonate, S 25 22 - 29 04/21/2022 DTL mmol/L 8:42 AM CDT Anion Gap 18 (H) 7 - 15 04/21/2022 DTL 8:42 AM CDT BUN (Blood Urea 76 (H) 6 - 21 04/21/2022 DTL Nitrogen), S mg/dL 8:42 AM CDT Creatinine 3.75 (H) 0.59 - 04/21/2022 DTL 1.04 mg/dL 8:42 AM CDT Estimated GFR <15 (L) >=60 04/21/2022 DTL (eGFR) mL/min/BSA 8:42 AM CDT Comment: Estimated GFR calculated using the 2020 CKD_EPI creatinine equation. Calcium, Total, S 9.9 8.8 - 10.2 mg/dL 04/21/2022 8:42 AM CDT DTL Glucose, S 159 (H) 70 - 140 mg/dL 04/21/2022 8:42 AM CDT D TL Albumin, S 4.6 3.5 - 5.0 g/dL 04/21/2022 8:42 AM CDT D TL Phosphorus (Inorganic), S 3.2 2.5 - 4.5 mg/dL 04/21/20 8:42 AM CDT DTL Specimen Anatomical Collection Method Collection Time Receive d Time (Source) Location / / Volume Laterality Blood (Blood, 04/21/2022 7:45 AM 04/21/20 8:22 Venous) CDT AM CDT Patricia Cox M.D. LAB BLOOD ADD-ON Performing Organization Address City/State/ZIP Code Phon e Number [facility] - [address] [place], [place] [address] [facility] [place] [address] [facility] [address] (ABNORMAL) Lipid Panel (04/21/2022 7:45 AM CDT) [...] Organization Address City/State/ZIP Code Phon e Number [facility] - [address] [place], [place] [address] [facility] [place] [address] [facility] [address] (ABNORMAL) Mycophenolic Acid [...] performa nce characteristics determined by [facility] in a manner consistent with [...] Organization Address City/State/ZIP Code Phon e Number [facility] [address] [place], [place] [address] SUPPORT [place], [place] [id number] [place] [address] [place] Hepatic Function Panel (04/21/2022 7:45 AM CDT) [facility] Method Time Signature Bilirubin, Total, S 0.6 [...] M.D. LAB BLOOD ADD-ON Performing Organization Address City/[facility] Phon e Number [facility] - [address] [place] [address] 05 [place] [address] [facility] 200 [facility] BKV DNA Detect/Quant (04/21/2022 7:45 AM CDT) [facility] gist Method Time Signature BKV DNA Undetected Undetected 04/21/2022 [facility] Detect/Quant, IU/mL 6:25 PM CDT P Comment: Result in log IU/mL is Undetected. ----ADDITIONAL INFORMATION---- The quantification range of this assay i s 22 to 100,000,000 IU/mL (1.34 log to 8.00 log IU/mL). Testing was performe d using the barrett BKV test ([employer] with the barrett [id number] System. Specimen Anatomical Collection Method Collection Time Receive d Time (Source) Location / / Volume Laterality Blood (Blood, 04/21/2022 7:45 AM 04/21/20 22 Venous) CDT 10:15 AM CDT Patricia Cox M.D. LAB MICROBIOLOGY - BLOOD ORD ERABLES Performing Organization Address City/[facility]/ZIP Code Phon e Number [facility] [address] [place], [place] [address] [facility] [place] [address] [facility] [address] [place] 25-Hydroxyvitamin D2 and D3 (04/21/2022 7:45 AM CDT) athologist Signature 25-Hydroxy D2 <4.0 ng/mL 04/25/2022 [facility] 3:41 PM CDT 25-Hydroxy D3 28 ng/mL 04/25/2022 [facility] 3:41 PM CDT 25-Hydroxy D 28 ng/mL 04/25/2022 [facility] Total 3:41 PM CDT Comment: ----REFERENCE VALUE---- 25-HYDROXY D TOTAL (D2+D3) Optimum level s in the healthy population are 20-50, patients with bone disease may benefit from higher levels within this r willie. ----ADDITIONAL INFORMATION---- This test was developed and its performa nce characteristics determined by [facility] in a manner consistent with [...] Organization Address City/State/ZIP Code Phon e Number [facility] [address] [place] [id number] [place], [place] [address] [place] Tacrolimus, B (04/21/2022 7:45 AM CDT) athologist Signature Tacrolimus, B 11.7 5.0-15.0 04/21/2022 [facility] (Trough) 12:38 PM CDT ng/mL Comment: ----ADDITIONAL INFORMATION---- Target [...] performa nce characteristics determined by [facility] in a manner consistent with CLIA requirements. This test has not been cleared or approved by the [place] d and Drug Administration. Specimen Anatomical Collection Method Collection Time Receive d Time (Source) Location / / Volume Laterality Blood (Blood, 04/21/2022 7:45 AM 04/21/20 9:27 Venous) CDT AM CDT Patricia Cox M.D. LAB BLOOD NON ADD-ON Performing Organization Address City/State/ZIP Code Phon e Number [facility] [address] [place], [place] [address] [facility] [address] [place] (ABNORMAL) CBC with Differential, Blood (04/21/2022 7:45 AM CDT) [facility] Method Time Signature Hemoglobin 10.1 (L) 11.6 - 04/21/2022 DTL 15.0 g/dL 8:07 AM CDT Hematocrit 32.6 (L) 35.5 - 04/21/2022 DTL 44.9 % 8:07 AM CDT Erythrocytes 3.48 (L) 3.92 - 04/21/2022 DTL 5.13 8:07 AM CDT x10(12)/L MCV 93.7 78.2 - 04/21/2022 DTL 97.9 fL 8:07 AM CDT RBC Distrib Width 14.5 12.2 - 04/21/2022 DTL 16.1 % 8:07 AM CDT Platelet Count 167 157 - 371 04/21/2022 DTL x10(9)/L 8:07 AM CDT Leukocytes 9.2 3.4 - 9.6 04/21/2022 DTL x10(9)/L 8:07 AM CDT Neutrophils 7.25 (H) 1.56 - 04/21/2022 DTL 6.45 8:07 AM CDT x10(9)/L Lymphocytes 1.70 0.95 - 04/21/2022 DTL 3.07 8:07 AM CDT x10(9)/L Monocytes 0.15 (L) 0.26 - 04/21/2022 DTL 0.81 8:07 AM CDT x10(9)/L Eosinophils 0.08 0.03 - 04/21/2022 DTL 0.48 8:07 AM CDT x10(9)/L Basophils <0.03 0.01 - 04/21/2022 DTL 0.08 8:07 AM CDT x10(9)/L Specimen Anatomical Collection Method Collection Time Receive d Time (Source) Location / / Volume Laterality Blood (Blood, 04/21/2022 7:45 AM 04/21/20 22 7:58 Venous) CDT AM CDT Authorizing Provider Result Anand Cox M.D. LAB BLOOD ADD-ON Performing Organization Address City/[facility]/ZIP Code Phon e Number [facility] - [address] [place], [place] [address] [place] [address] [facility] [address] [facility] (ABNORMAL) Troponin T, 5th Generation (04/21/2022 7:44 AM CDT) P athologist Signature Troponin T, 5th 92 (H) <=10 ng/L 04/21/2022 DTL gen 8:33 AM CDT Specimen Anatomical Collection Method Collection Time Receive d Time (Source) Location / / Volume Laterality Blood (Blood, 04/21/2022 7:44 AM 04/21/20 22 8:15 Venous) CDT AM CDT Patricia Cox M.D. LAB BLOOD ADD-ON Performing Organization Address City/[facility] Code Phon e Number [facility] - [address] [place], [place] [address] [place] [address] [facility] [address] [facility] (ABNORMAL) Parathyroid Hormone (PTH) (04/21/2022 7:44 AM CDT) Analysis Performed At Patho logist Time Signature Parathyroid 446 (H) 15 - 65 04/21/2022 DT Hormone (PTH), S pg/mL 8:48 AM CDT Specimen Anatomical Collection Method Collection Time Receive d Time (Source) Location / / Volume Laterality Blood (Blood, 04/21/2022 7:44 AM 04/21/20 22 8:22 Venous) CDT AM CDT Patricia Cox M.D. LAB BLOOD ADD-ON Performing Organization Address City/State/ZIP Code Phon e Number [facility] - [address] [place], [place] [address] 05 [place] [address] [place] [address] [address] [facility] Magnesium (04/21/2022 7:44 AM CDT) P athologist Signature Magnesium, S 1.8 1.7 - 2.3 04/21/2022 DTL mg/dL 8:48 AM CDT Specimen Anatomical Collection Method Collection Time Receive d Time (Source) Location / / Volume Laterality Blood (Blood, 04/21/2022 7:44 AM 04/21/20 8:22 Venous) CDT AM CDT Patricia Cox M.D. LAB BLOOD ADD-ON Performing Organization Address City/State/ZIP Code Phon e Number [facility] - [address] [place], [place] [address] [facility] [place] [address] [facility] [address] documented in this encounter Visit Diagnoses Diagnosis Transplant Renal (HCC) - Primary Transplant Renal (HCC) documented in this encounter Additional Health Concerns Assessment Noted Time PHQ-9 Depression Total Score: 3 04/07/2021 9:37 AM CDT documented as of this encounter Care Teams Nuclear Unit Operator Relationship Specialty Start Date End Date Elsewhere, Pcp PCP - General 09/17/19 [facility] External Provider Laboratory Medicine 04/11/22 04/24/22 documented as of this encounter
--- OUTSIDE RECORDS SUMMARY | 2022-05-25 13:00 | XMS_ITS | Encounter Summary ---
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 Social History Tobacco Use Types Packs/Day Years [...] How often do you attend restorationism or faith 1 to 4 times per year 12/23/2021 [...] place to sleep or slept in a jail (including now)? Education Answer Date Recorded What is the highest level of school you have GED or equivale nt 01/26/2019 completed or the highest degree you have received? Sex Assigned at Date Recorded Female 12/23/2021 4:18 AM CDT documented as of this encounter Last Filed Vital Signs Vital Sign Reading Time Taken Comments Blood Pressure 164/92 04/12/2022 8:56 AM CDT Pulse 78 04/12/2022 8:56 AM CDT Temperature - - Respiratory Rate - - Oxygen Saturation - - Inhaled Oxygen Concentration - - Weight - - Height - - Body Mass Index - - documented in this encounter Plan of Treatment Upcoming Encounters Date Type Specialty Care Team Description 06/01/2022 Telemedicine Pharmacy An Nicholas APRN, C.N.P., D.N.P., M.S.N. [address] [place], [place] [phone] (Wo rk) 07/31/2022 Lab Laboratory Medicine Tony Rubalcava M. B., Sydnie, Mukund [address] [place] [phone] (Wo rk) 07/31/2022 Lab Laboratory Medicine Tony Rubalcava M. B., Sydnie, Mukund [address] [place] [phone] (Wo rk) 07/31/2022 Office Visit Transplant Tony Rubalcaav M.B., Sydnie, Mukund [address] [place] [phone] (Wo rk) 07/31/2022 Appointment Radiology Tony Rubalcava M.B., Sydnie, Mukund [address] [place] [phone] (Wo rk) 08/01/2022 Office Visit Transplant Tony Rubalcava M.B., Sydnie, MDebra [address] [place] [phone] (Wo rk) 08/01/2022 Clinical Support Transplant Tony Rubalcava M.B., Sydnie, MDebra [address] [place] [phone] (Wo rk) documented as of this encounter Visit Diagnoses Diagnosis 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
--- OUTSIDE RECORDS SUMMARY | 2022-05-25 13:00 | XMS_ITS | Encounter Summary ---
:1960 Author Organization [facility] Address [address] [place] [address] Care Team Providers Name Role Phone Elsewhere, Pcp Primary Care Provider Unavailable Encounter Details Date Type Department Care Team Description 04/13/2022 Hospital Encounter [facility], Alvaro Jennings ([facility]) [facility] [place] [address] [place] [address], [place], [place] Floor [phone] [address] [facility] [phone] [place], [place] (Work) [phone] Social History Tobacco Use [...] often do you attend [employer] or [employer] 1 to 4 times per year 12/23/2021 [...] mg tablet total) by mouth at bedtime. furosemide (LASIX) 80 Take 1.5 tablets 90 tablet 0 04/13/ 22 04/17/2022 mg tablet (120 mg total) by mouth 2 (two) times a day. magnesium oxide Take 2 tablets (800 60 [...] on renal function. tacrolimus (PROGRAF) 1 Take 5 capsules (5 180 capsule 1 03/2104/17/2022 mg capsule mg total) by mouth every [...] 06/01/2022 Telemedicine Pharmacy An Nicholas APRN, C.N.P., WhitneyN.P., M.S.N. [address] [place] [address] [phone] (Nicolas rk) 07/31/2022 Lab Laboratory Medicine Tony Rubalcava M. B., ChBurke, MDebra [address] [place] [address] [phone] (Nicolas rk) 07/31/2022 Lab Laboratory Medicine Tony Rubalcava M. B., ChBurke, MDebra [address] [place] [address] [phone] (Wo rk) 07/31/2022 Office Visit Transplant Tony Rubalcava M.B., ChBurke, MDebra [address] [place] [address] [phone] (Wo rk) 07/31/2022 Appointment Radiology Tony Rubalcava M.B., ChBurke, MDebra [address] [place] [address] [phone] (Nicolas rk) 08/01/2022 Office Visit Transplant Tony Rubalcava M.B., ChBurke, MDbera [address] [place] [address] [phone] (Wo behzad) 08/01/2022 Clinical Support Transplant Tony Rubalcava M.B., ChDaviBDavi, MDebra [address] [place] [address] [phone] (Nicolas wen) documented as of this encounter Procedures Procedure Name Priority Date/Time Associated Comments Diagnosis RENAL FUNCTION Routine 04/13/2022 8:17 AM Transplant Renal Res ults for this PANEL, S CDT (HCC) procedure are i n the results section. TACROLIMUS LEVEL, B Routine 04/13/2022 8:17 AM Transplant Jessica l Results for this CDT (HCC) procedure are i n the results section. CBC WITH Routine 04/13/2022 8:17 AM Transplant Renal Resul ts for this DIFFERENTIAL, B CDT (HCC) procedure ar e in the results section. MAGNESIUM, S Routine 04/13/2022 8:17 AM Transplant Renal Resul ts for this CDT (HCC) procedure are i n the results section. documented in this encounter Results Tacrolimus, B (04/13/2022 8:17 AM CDT) athologist Signature Tacrolimus, B 6.5 5.0-15.0 04/13/2022 SDSC (Trough) 12:55 PM CDT ng/mL Comment: ----ADDITIONAL INFORMATION---- Target steady-state trough concentration s vary depending on the type of transplant, concomitant immunosuppressio n, clinical/institutional protocols, and time post-transplant. Results should be interpreted in conjunction with this clinical information and any physic al signs/symptoms of rejection/toxicity. Testing performed by Liquid Chromatograp hy-Tandem Mass Spectrometry (LC-MS/MS). This test was developed and its performa nce characteristics determined by [facility] in a manner consistent with CLIA requirements. This test has not been cleared or approved by the [place] d and Drug Administration. Specimen Anatomical Collection Method Collection Time Receive d Time (Source) Location / / Volume Laterality Blood (Blood, 04/13/2022 8:17 AM 04/13/20 22 Venous) CDT 10:29 AM CDT Patricia Cox M.D. LAB BLOOD NON ADD-ON Performing Organization Address City/State/ZIP Code Phon e Number [facility] [address] [place], [place] [address] [place] [address] [place] [address] Laboratory Medicine and Pathology [address] [place] (ABNORMAL) Magnesium (04/13/2022 8:17 AM CDT) P athologist Signature Magnesium, S 2.5 (H) 1.7 - 2.3 04/13/2022 DTL mg/dL 9:38 AM CDT Specimen Anatomical Collection Method Collection Time Receive d Time (Source) Location / / Volume Laterality Blood (Blood, 04/13/2022 8:17 AM 04/13/20 8:47 Venous) CDT AM CDT Patricia Cox M.D. LAB BLOOD ADD-ON Performing Organization Address City/State/[facility] Code Phon e Number [facility] - [address] [place], [place] [address] [facility] [place] [address] Laboratories-[facility] [address] (ABNORMAL) Renal Function Panel (04/13/2022 8:17 AM CDT) Analysis Performed At Patho logist Time Signature Potassium, S 3.8 3.6 - 5.2 04/13/2022 DTL mmol/L 9:38 AM CDT Sodium, S 141 135 - 145 04/13/2022 DTL mmol/L 9:38 AM CDT Chloride, S 99 98 - 107 04/13/2022 DTL mmol/L 9:38 AM CDT Bicarbonate, S 22 22 - 29 04/13/2022 DTL mmol/L 9:38 AM CDT Anion Gap 20 (H) 7 - 15 04/13/2022 DTL 9:38 AM CDT BUN (Blood Urea 92 (H) 6 - 21 04/13/2022 DTL Nitrogen), S mg/dL 9:43 AM CDT Creatinine 7.57 (H) 0.59 - 04/13/2022 DTL 1.04 mg/dL 9:38 AM CDT Estimated GFR <15 (L) >=60 04/13/2022 DTL (eGFR) mL/min/BSA 9:38 AM CDT Comment: Estimated GFR calculated using the 2020 CKD_EPI creatinine equation. Calcium, Total, S 9.0 8.8 - 10.2 mg/dL 04/13/2022 9:38 AM CDT DTL Glucose, S 92 70 - 140 mg/dL 04/13/2022 9:38 AM CDT D TL Albumin, S 4.1 3.5 - 5.0 g/dL 04/13/2022 9:38 AM CDT D TL Phosphorus (Inorganic), S 6.6 (H) 2.5 - 4.5 mg/dL 04/13/20 9:38 AM CDT DTL Specimen Anatomical Collection Method Collection Time Receive d Time (Source) Location / / Volume Laterality Blood (Blood, 04/13/2022 8:17 AM 04/13/20 8:47 Venous) CDT AM CDT Patricia Cox M.D. LAB BLOOD ADD-ON Performing Organization Address City/State/ZIP Code Phon e Number [facility] - [address] [place], [place] [address] [facility] [place] [address] Laboratories-[facility] [address] [facility] (ABNORMAL) CBC with Differential, Blood (04/13/2022 8:17 AM CDT) [facility] gist Method Time Signature Hemoglobin 8.8 (L) 11.6 - 04/13/2022 DHPM 15.0 g/dL 8:59 AM CDT Hematocrit 28.5 (L) 35.5 - 04/13/2022 DHPM 44.9 % 8:59 AM CDT Erythrocytes 2.97 (L) 3.92 - 04/13/2022 DHPM 5.13 8:59 AM CDT x10(12)/L MCV 96.0 78.2 - 04/13/2022 DHPM 97.9 fL 8:59 AM CDT RBC Distrib Width 15.1 12.2 - 04/13/2022 DHPM 16.1 % 8:59 AM CDT Platelet Count 140 (L) 157 - 371 04/13/2022 DHPM x10(9)/L 8:59 AM CDT Leukocytes 7.9 3.4 - 9.6 04/13/2022 DHPM x10(9)/L 8:59 AM CDT Neutrophils 5.57 1.56 - 04/13/2022 DHPM 6.45 8:59 AM CDT x10(9)/L Lymphocytes 1.54 0.95 - 04/13/2022 DHPM 3.07 8:59 AM CDT x10(9)/L Monocytes 0.45 0.26 - 04/13/2022 DHPM 0.81 8:59 AM CDT x10(9)/L Eosinophils 0.28 0.03 - 04/13/2022 DHPM 0.48 8:59 AM CDT x10(9)/L Basophils <0.03 0.01 - 04/13/2022 DHPM 0.08 8:59 AM CDT x10(9)/L Specimen Anatomical Collection Method Collection Time Receive d Time (Source) Location / / Volume Laterality Blood (Blood, 04/13/2022 8:17 AM 04/13/20 8:47 Venous) CDT AM CDT Patricia Cox M.D. LAB BLOOD ADD-ON Performing Organization Address City/State/ZIP Code Phon e Number [facility] [address] [phone] [address] [place] [address] Laboratories[facility] [address] documented in this encounter Visit Diagnoses Diagnosis Transplant Renal (HCC) documented in this encounter Additional Health Concerns Assessment Noted Time PHQ-9 Depression Total Score: 3 04/07/2021 9:37 AM CDT documented as of this encounter Care Teams Hand Pleater Relationship Specialty Start Date End Date Elsewhere, Pcp PCP - General 09/17/19 [facility] External Provider Laboratory Medicine 04/11/22 04/24/22 documented as of this encounter
--- OUTSIDE RECORDS SUMMARY | 2022-05-25 13:01 | XMS_ITS | Encounter Summary ---
:[address] [facility] Address [address] [place] [id number] Care Team Providers Name Role Phone Elsewhere, Pcp Primary Care Provider Unavailable Encounter Details Date Type Department Care Team Description 04/06/2022 - Hospital Encounter [facility] Nehemias Felipe M.D. [address] [place] [phone] Chronic Kidney Disease Stage 5 Glomerula r Filtration Rate Less Than 15 (HCC) (Primary Dx); 04/09/2022 [facility], Twin Neves M.D. [address] [place] [phone] Chronic Kidney Disease; [facility] Transplant Renal ([facility]) [facility], Tenth Floor [address] [place] [address] Social History Tobacco Use Types Packs/Day [...] How often do you attend zoroastrian or caodaism 1 to 4 times per year 12/23/2021 [...] Sign Reading Time Taken Comments Blood Pressure 132/71 04/09/2022 12:45 PM CDT Pulse 65 04/09/2022 12:45 PM CDT Temperature 36.6 ??C (97.9 ??F) 04/09/2022 12:45 PM CDT Respiratory Rate 16 04/09/2022 12:45 PM CDT Oxygen Saturation 97% 04/09/2022 12:45 PM CDT Inhaled Oxygen Concentration - - Weight 107 kg (236 lb 5.3 oz) 04/08/2022 6:50 AM CDT Height 165.4 cm (5' 5.12) 04/07/2022 10:22 AM CDT Body Mass Index 39.19 04/07/2022 10:22 AM CDT documented in this encounter Discharge Summaries Sam Miller M.D. - 04/09/2022 11:41 AM CDT DATE OF ADMISSION: 04/06/2022 DATE OF DISCHARGE: 04/09/22 Discharge Attending: Tony Rubalcava [facility] Ms. Shabnam Wray is a 61 y.o. female admitted to the [facility] kidney/pancreas transplant service for a Donor Kidney Transplant on 04/06/2022 - 04/07/2022. Patient has a history of ESRD secondary to Unknown etiology, was on hemodialysis. Last session was 04/06 prior to transplant. History is significant for hypertension, hyperlipidemia, obesity (BMI 37), and prior kidney transplant; and she had 3 superficial melanomas per her report on the left side of her body, nose, arm and leg which she was cleared for transplantation. She has no further lesions at this point. She is maintained on warfarin for vascular access with an AV graft in her right upper arm. Transplant Summary: ESRD Cause: Unknown etiology Date of Transplant: 04/06/2022 - 04/07/2022 Retransplant: yes Type of Transplant: Donor Kidney [...] months DDK: yes PHS increased risk: no Patient's postoperative course was uncomplicated. Urinary catheter was removed with stent not attached. Day of dismissal serum creatinine level was 7.22 mg/dL (10.32 mg/dL prior to transplant). Ms. Wray was dismissed on POD #3 ambulating, pain was controlled and tolerating a general diet. [facility] Follow-up Recommendations 1. Monitor tacrolimus levels and adjust dose accordingly. Tacrolimus started on 04/07/22; patient discharged taking 3 mg BID. 2. close follow-up given her 3 prior melanomas for skin monitoring, early Dermatology at her 4 monthvisit as well as 6 monthly reviews 3. 2 stent- 1 from this surgery 1 from previous surgery, to be removed with Cysto in 2-3 weeks post surgery, ordered Admission Weight: 103 kg Dismissal weight 107 kg Body mass index is 39.19 kg/m??. Prior to admission she was on warfarin for AV fistula graft patency and chronic right IJ thrombus. We discussed with her risks and benefits of continuing warfarin and decided to discontinue warfarin atthis time. TEST RESULTS PENDING AT DISCHARGE Pending Labs Order Current Status Renal Pathology In process Tacrolimus, B In process ACTIVE ISSUES REQUIRING FOLLOW UP: see appointment guide FOLLOW-UP APPOINTMENTS Scheduled Appointments 04/10/2022 8:15 AM INF RN NURSE CESAR Infusion Therapy 04/11/2022 7:20 AM LAB BLOOD [facility] Laboratory Medicine 04/11/2022 8:30 AM TXP POST KIDNEY ROCH 10 Transplant 04/11/2022 9:00 AM Tony Rubalcava M.B., Shashi Otoole. Transplant 04/12/2022 9:00 AM Sherry Judd P.A.-C. Vascular Medicine 04/14/2022 8:30 AM Jennifer Urbina L.I.C.SRex, M.S.W. Transplant 04/21/2022 10:00 AM EDU ROCH 10 TXP Transplant 04/27/2022 8:30 AM RM PROC CYSTO 02 ROGO URO Urology 05/01/2022 10:00 AM EDU ROCH 10 TXP Transplant 05/12/2022 11:45 AM Lydia Crowley, P.A.-C., P.A. General Surgery For appointment details refer to your Patient Appointment Guide. DISMISSAL DIAGNOSES #1 Chronic Kidney Disease NOS #2 Hyperlipidemia #3 Depression Major One Episode Full Remission (HCC) #4 Chronic Kidney Disease Stage 5 Glomerular Filtration Rate Less Than 15 (HCC) #5 Transplant Renal (HCC) #6 Hypertension And Chronic Kidney Disease Stage 1 To 4 #7 Anticoagulant Therapy #8 Hyperkalemia DISCHARGE DISPOSITION: Stable and ready for discharge. Education provided to the patient/family is included in the after visit summary. Discharge Medications TAKE these medications sulfamethoxazole-trimethoprim 400-80 mg per tablet Commonly known as: BACTRIM,SEPTRA Start taking on: April 10, 2022 Take 1 tablet by mouth 3 (three) times a week. Stop date: 10/08/22. Dose adjusted based on renal function. This medication is very important: It prevents dangerous infection. valGANciclovir 450 mg tablet Commonly known as: VALCYTE Start taking on: April 10, 2022 Take 1 tablet (450 mg total) by mouth 3 (three) times a week. Dose may be adjusted based on kidney function. Stop date: 07/08/22 This medication is very important: It prevents dangerous infection. mycophenolate 250 mg capsule Commonly known as: CELLCEPT Take 3 capsules (750 mg total) by mouth every 12 (twelve) hours. Take medication on an empty stomach. Do not break, cut, or open capsules. This medication is very important: It prevents organ rejection. predniSONE 5 mg tablet Commonly known as: DELTASONE Take 1-4 tablets (5-20 mg total) by mouth daily. 04/11-04/28: 4 tabs, 04/29- 05/05: 3 tabs, 05/06-05/12: 2 tabs, 05/13 and after: 1 tab daily This medication is very important: It prevents organ rejection. tacrolimus 1 mg capsule Commonly known as: PROGRAF Take 3 capsules (3 mg total) by mouth every 12 (twelve) hours. Dose may change based on levels. This medication is very important: It prevents organ rejection. acetaminophen 325 mg tablet Commonly known as: TYLENOL Take 2 tablets (650 mg total) by mouth every 6 (six) hours as needed for pain. Do not exceed 3000mg in 24 hours. gabapentin 100 mg capsule Commonly known as: NEURONTIN TAKE 3 CAPSULES BY MOUTH IN THE MORNING AND 2 CAPSULES IN THE EVENING hydrocortisone 2.5 % cream Commonly known as: HYTONE Apply 1 application topically daily as needed (Eczema). magnesium oxide 400 mg (241.3 mg magnesium) tablet Commonly known as: MAG-OX Take 2 tablets (800 mg total) by mouth every morning before breakfast. multivitamin tablet Commonly known as: multivitamin Take 1 tablet by mouth daily. nebivoloL 5 mg tablet Commonly known as: BYSTOLIC Take 5 mg by mouth daily. pantoprazole 40 mg EC tablet Commonly known as: PROTONIX Take 1 tablet (40 mg total) by mouth every morning before breakfast. rosuvastatin 5 mg tablet Commonly known as: CRESTOR Take 1 tablet (5 mg total) by mouth at bedtime. sennosides-docusate sodium 8.6-50 mg per tablet Commonly known as: Senna with Docusate Sodium Take 1-2 tablets by mouth 2 (two) times a day. Take while on any narcotics, or for constipation. Stop for diarrhea. sertraline 25 mg tablet Commonly known as: ZOLOFT Take 1 tablet (25 mg total) by mouth at bedtime. documented in this encounter Discharge Instructions Discharge Instr - Dara Ley M.S., VITO, JAIME - 04/08/2022 12:30 PM CDT NUTRITION Nutrition dismissal summary completed by: Dara Melo M.S., VITO, JAIME Date Completed: 04/08/2022 Phone contact: Height: 165.4 cm Weight: 107 kg Admission Weight: 103 kg BMI (Calculated): 39.2 kg/m?? Diet Order: General ESTIMATED NEEDS: Total Calorie Needs: 6714-3687 kcal/d calories/day Method to Estimate Energy Needs: Saldaña-Brumley (Basal + 20%) Weight Used for Equation Calculations: 67.8 kg Total Protein Needs: 81 - 95 grams/day Method to Estimate Protein Needs (g/kg): 1.2 - 1.4 gm/kg Weight Used to Calculate Protein Needs (Kg): 67.8 kg Status: Solid Organ Transplant Recipient Nutritional Status: Per ASPEN/AND criteria, patient has been assessed as: well or adequately nourished Interventions during this hospital stay: Provided education and counseling on healthy post-transplant nutrition, food safety, adequate fluid intake and food-drug interactions. Nutrition Follow-up Plan: Outpatient follow-up appointment will be scheduled with outpatient Transplant Nutrition (1:1 or class) before dismissed from [place] and on return at 3 to 4 month check-up. AttachmentsThe following attachments cannot be sent through Care Everywhere. Magnesium Oxide (By mouth) (Bruneian)Multivitamins, Adult Formula (By mouth) (Bruneian)Pantoprazole (By mouth) (Bruneian)Sulfamethoxazole/Trimethoprim (By mouth) (Bruneian)Senna (By mouth) (Bruneian)Valganciclovir (By mouth) (Bruneian) documented in this encounter Medications at Time of Discharge Medication Sig Dispensed Refills Start Date End Date rosuvastatin (CRESTOR) Take 1 tablet (5 mg 90 tablet 3 03/2004/07/2023 5 mg tablet total) by mouth at bedtime. sertraline (ZOLOFT) 25 Take 1 tablet (25 mg 90 tablet 3 04/07/2023 mg tablet total) by mouth at bedtime. acetaminophen (TYLENOL) Take 2 tablets (650 100 [...] total) by mouth every morning before breakfast. magnesium oxide Take 2 tablets (800 60 tablet 0 04/08/2022 04/28/2022 (MAG-OX) 400 mg (241.3 mg total) by mouth mg magnesium) tablet every morning before breakfast. sulfamethoxazole-trimet Take 1 tablet by 30 tablet 5 202104/28/2022 hoprim (BACTRIM,SEPTRA) mouth 3 (three) 400-80 mg per tablet times a week. Stop date: 10/08/22. Dose adjusted based on renal function. tacrolimus (PROGRAF) 1 Take 4 capsules (4 180 capsule 1 03/2104/13/2022 mg capsule mg total) by mouth every 12 (twelve) hours. Dose may change based on levels. valGANciclovir Take 1 tablet (450 30 tablet 2 04/10/2022 (VALCYTE) 450 mg tablet mg total) by mouth 3 (three) times a week. Dose may be adjusted based on kidney function. Stop date: 07/08/22 mycophenolate Take 3 capsules (750 180 capsule [...] narcotics, or for constipation. Stop for diarrhea. documented as of this encounter Progress Notes Tony Rubalcava M.B., Sydnie, MElvia. - 04/09/2022 11:35 AM CDT I personally saw and examined the patient and discussed the case during the Multidisciplinary Kidneyand Pancreas Transplant morning rounds. Kidney Recipient Progress Note, 3 Days Post-Op SUBJECTIVE Ms. Wray underwent a kidney donor transplant No complaints today. Eating and drinking and mobilizing. Dr. Martínez saw her yesterday. OBJECTIVE Vital Signs Vitals: 04/08/22202104/09/22 0010 04/09/22 0500 04/09/22 0800 BP: 146/85 142/68 (!) 166/86 137/77 BP Location: Left arm Left arm Left arm;Upper Patient Position: Sitting Lying Lying Pulse: 67 68 68 64 Resp: Temp: 36.7 ??C 36.8 ??C 36.4 ??C TempSrc: Oral Oral Oral SpO2: 95% 96% 95% 96% Weight: Height: Intake & Output Weights for the past 120 hrs (Last 3 readings): Weight 04/08/22 0650 107 kg 04/07/22 1021 100 kg 04/06/22 1830 100 kg I/O 04/07 0000 04/09 235 P.O. 2020 890 300 Crystalloid Bolus 1250 Maintenance IV 1330.5 Intermittent Medications 510 Total Intake(mL/kg) 5110.5 (51.1) 890 (8.3) 300 (2.8) Urine (mL/kg/hr) 1935 (0.8) 1850 (0.7) 1625 (1.3) Total Output 1934 1850 1625 Net +3175.5 -960 -1325 Physical Exam General: well-appearing Neuro: alert and oriented Heart: Regular HR. Edema: mild Lungs: No oxygen requirement. Breathing not labored talking in full sentences Abdomen: Soft Surgical Wound:Clean, dry, and intact DIAGNOSTIC FINDINGS I personally reviewed all radiology and labs from the past 24 hrs. Recent Labs 04/09/22 0527 04/08/22 0648 04/07/22 0626 04/07/21 0843 02/28/21 0530 09/27/20 0530 05/17/20 0530 HGB 9.1 L 9.0 L 9.9 L < > -- -- -- WBC 10.3 H 9.7 H 9.8 H < > -- -- -- NA 131 L 130 L 129 L < > -- -- -- CREATININE 7.22 H 7.26 H 6.72 H < > -- -- -- TACROLIMUS -- -- -- -- 10.9 9.4 5.1 < > = values in this interval not displayed. Recent Labs 04/09/22 0527 04/08/22 0648 04/07/22 0626 04/06/22 2349 04/06/22 1528 09/17/19 0442 09/15/19 1356 CALCIUM 8.5 L 8.4 L 8.1 L < > 8.8 < > 9.3 LABPHOS 6.5 H -- 5.5 H 5.5 H -- 4.3 < > 3.4 MG 2.0 -- 1.5 L -- -- -- 1.6 L < > = values in this interval not displayed. ASSESSMENT/PLAN #1 kidney donor transplant recipient #2 End stage renal disease due to Unknown etiology Kidney function plateaued. Increasing urine output. Drink to 36-40oz #3 Patient was induced with Basiliximab #4 Infection prophylaxis - EBV Donor: negative / Recipient: positive - CMV Donor: positive / Recipient: positive - Plan: Valcyte x 3 months, renally dosed, Bactrim x 6 months Nystatin for 1 month due to DM #5 Hypertension Plan: - BP meds NEBIVOLOL #6 Anemia #7 Disposition Dismiss today and will return to clinic Sunday Basiliximab tomorrow infusion. #1 Chronic Kidney Disease NOS #2 Hyperlipidemia #3 Depression Major One Episode Full Remission (HCC) #4 Chronic Kidney Disease Stage 5 Glomerular Filtration Rate Less Than 15 (HCC) #5 Transplant Renal (HCC) #6 Hypertension And Chronic Kidney Disease Stage 1 To 4 #7 Anticoagulant Therapy #8 Hyperkalemia Kelly Santos Pharm.D., R.Ph. - 04/09/2022 9:20 AM CDT Transplant Pharmacist Note Shabnam Wray is a 61 y.o. 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 PMH: CKD S5 2/2 unknown etiology s/p kidney transplant 2007 complicated by allograft UPJ obstructionrequiring repeat exchanges, recurrent clot at dialysis access, hx melanoma, hypertension, depression, hx COVID-19 OBJECTIVE Immunosuppression Regimen and Goal Range: - Induction: Basiliximab 20 mg IV on POD 0 & 4 - Mycophenolate mofetil 750 mg orally twice daily - Standard steroid taper to prednisone 5 mg orally daily - Tacrolimus 3 mg orally twice daily; Goal trough = 8-10 ng/mL x1 month then 6-8 ng/mL; Last level : Infectious Disease Prophylaxis: CMV D-/R+ - Cefazolin IV x24 hrs post-op - HSV/CMV: Valganciclovir 450 orally three times weekly x3 months [end 07/07/22] - Adjust for kidneyfunction - PCP: Bactrim 400 mg/80 mg orally three times weekly x6 months [end 10/07/22] - Fungal: Nystatin orally four times daily [through hospital admission] - COVID-19: Offer Evusheld prior to dismissal. Drug Interactions: - None noted Other Issues: - Neuropathy: gabapentin 300 mg qAM and 200 mg qPM - CV/Heme: Chronic IJ thrombus on warfarin prior to admission - Kidney function: Dialysis 04/06 - making good urine, showing signs of starting to clear solute Lab Results Component Value Date CREATININE 7.22 (H) 04/09/2022 CREATININE 7.26 (H) 04/08/2022 CREATININE 6.72 (H) 04/07/2022 Prophylaxis: - GI: Protonix 40 mg orally daily Home Medications: - Held: kidney failure medications. - Changed:immunosuppression and infection prophylaxis - Patient own medications: none ASSESSMENT / PLAN Summary and Recommendations - s/p donor kidney transplant 04/06/22 with Basiliximab induction, standard steroid taper, mycophenolate and tacrolimus (goal 8-10 ng/mL) - Infection prophylaxis with Valcyte x3 months, Bactrim x6 months, and nystatin through hospital admission. - transplant team spoke with patient about the pros and cons of resuming warfarin therapy and it wasdecided that patient would NOT resume warfarin upon dismissal - Gabapentin cleared by kidneys. Patient may need dose increase to maintain efficacy post kidney transplant. Dismissal Planning - Offer Evusheld prior to dismissal. - Changes to medications anticipated at discharge: New immunosuppression New infectious disease prophylaxes Possible post-operative pain medications as appropriate and bowel regimen while on post-operative opioids - No pharmacotherapeutic barriers to discharge from the hospital are identified at this time. Kelly Santos, PharmDaviD., R.Ph. Tony Rubalcava M.B., Sydnie M.Michelle. - 04/08/2022 2:59 PM CDT I personally saw and examined the patient and discussed the case during the Multidisciplinary Kidneyand Pancreas Transplant morning rounds. I reviewed the history, physical exam and plan of care documented by Dr. Cox and agree with his documentation with the following additions: Kidney Recipient Progress Note, 2 Days Post-Op Ms. Wray is doing well day 2 post donor kidney transplant. Although her biochemical numbers have increased, creatinine 7.26, potassium is safe at 5.2, and she has increased urine output. Her hemoglobin is stable. Her platelets are at target. We are going to hold off her warfarin, which was used for dialysis access, thrombosis issues. She agrees with this approach, and she knows that shemay thrombose vascular access. She has had a workup for thrombosis in the past, which was negative. 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 Technically she could be dismissed from hospital today, but we are waiting for her caregiver to come into town tomorrow and can be dismissed tomorrow evening. Appreciative of Social Work, who have arranged charitable funding for staying in a hotel over Sunday night until they can get to the [facility] on Sunday. She knows her medications. She is on a standard taper of prednisone. She has tacrolimus level pending for tomorrow morning. Ms. Wray agrees with this plan. #1 Chronic Kidney Disease NOS #2 Hyperlipidemia #3 Depression Major One Episode Full Remission (HCC) #4 Chronic Kidney Disease Stage 5 Glomerular Filtration Rate Less Than 15 (HCC) #5 Transplant Renal (HCC) #6 Hypertension And Chronic Kidney Disease Stage 1 To 4 #7 Anticoagulant Therapy #8 Hyperkalemia Dara Melo M.S., RDN, LD - 04/08/2022 9:54 AM CDT Clinical Nutrition: Initial Assessment Clinical Nutrition was requested to evaluate patient for assessment of nutritional status and nutrition education/counseling SUBJECTIVE Ms. Wray is a 61 y.o. female admitted for Chronic Kidney Disease [N18.9] Chronic Kidney Disease Stage 5 Glomerular Filtration Rate Less Than 15 (HCC) [N18.5], s/p donor kidney transplant 04/06. Past Medical History: Diagnosis Date Amblyopia Bilateral 1965 Blood Transfusion No Diagnosis 2007 Depressive Disorder Dialysis Dependent (HCC) Eczema 1965 Gastroesophageal Reflux Disease NOS Hyperlipidemia 2017 Hypertension NOS Other Specified Health Status 2008 Kidney failure Renal Disease Skin Cancer (Primary) NOS Sleep Apnea 2016 Transplant Renal ([facility]) Completed visit with patient today as part of face to face care. Current Nutrition (since admission): Patient reports current good appetite and oral intake. Percentage of Meals Eaten for the past 72 hrs: Meals (%) 04/08/22 0951 100 04/07/22 1447 75 Nutrition history: Pt reports she was following a dialysis diet prior to transplant Food Allergies: no known food allergies GI history: no current issues noted or reported Chewing/Swallowing Issues: no issues noted or reported Nutrition education/counseling: post-transplant edu provided by RDN today OBJECTIVE Current nutrition orders: Current Diet Adult Diet Regular starting at 04/07 1040 Skin integrity: +1 reg LE edema; no pressure injuries noted or reported Pertinent Labs: Last 2 results Lab Units 04/08/22 0648 04/07/22 1159 04/07/22 0626 04/06/22 2349 POTASSIUM mmol/L 5.2 5.5* 6.0* -- POTASSIUM P mmol/L -- -- -- 4.7 BUN P mg/dL -- -- -- 32* BUN mg/dL 50* -- 34* -- CREATININE mg/dL 7.26* -- 6.72* -- CREATININE P mg/dL -- -- -- 6.04* CRTS1 EGFR NON BLACK mL/min/BSA <15* -- <15* -- CREP2 EGFR P mL/min/BSA -- -- -- <15* CRTS1 EGFR BLACK mL/min/BSA <15* -- <15* -- CREP2 EGFR P mL/min/BSA -- -- -- <15* Results from last 7 days Lab Units 04/08/22 0648 04/07/22 0626 04/06/22 2349 SODIUM P mmol/L -- -- 133* SODIUM mmol/L 130* < > -- POTASSIUM mmol/L 5.2 < > -- POTASSIUM P mmol/L -- -- 4.7 CHLORIDE P mmol/L -- -- 95* CHLORIDE mmol/L 91* < > -- BICARBONATE PLASMA mmol/L -- -- 22 BICARBONATE S mmol/L 20* < > -- ANION GAP P -- -- 16* ANION GAP 19* < > -- < > = values in this interval not displayed. Pertinent Meds: magnesium oxide, 800 mg, oral, Daily before breakfast multivitamin/mineral-, 1 tablet, oral, Daily nystatin, 500,000 Units, swish & spit, After meals & bedtime pantoprazole, 40 mg, oral, Daily before breakfast sennosides-docusate sodium, 1 tablet, oral, BID tacrolimus, 3 mg, oral, BID PRN Meds: bisacodyL ondansetron oxyCODONE OR oxyCODONE polyethylene glycol promethazine Anthropometrics: Height: 165.4 cm Admission Weight: 103 kg (04/06/2022) Current Weight: 107 kg BMI (Calculated): 39.2 kg/m?? Weight change since admission: 4.1 kg Weight history: % Weight change in last 3 months: 7.85 % No recent significant/severe unintentional weight loss noted. Wt Readings from Last 6 Encounters: 04/08/22 107 kg 02/14/22 99.4 kg 01/03/22 99.9 kg 04/14/21 100 kg 04/08/21 98 kg 04/07/21 98.4 kg Estimated Needs: Total Calorie Needs: 0873-0719 kcal/d calories/day Method to Estimate Energy Needs: Saldaña-Brumley (Basal + 20%) Weight Used for Equation Calculations: 67.8 kg Total Protein Needs: 81 - 95 grams/day (Method to Estimate Protein Needs (g/kg): 1.2 - 1.4 gm/kg) Weight Used to Calculate Protein Needs (Kg): 67.8 kg Nutrition Diagnosis: Food- and nutrition-related knowledge deficit related to post-transplant nutrition therapy as evidenced by new transplant Nutrition Diagnosis Reassessment: Resolved (education completed) Malnutrition Criteria: Average estimated Intake: No Change Weight Loss: No Change Body Fat: Normal Muscle Mass: Normal Fluid Accumulation: Mild Nutritional Status: Well Nourished ASSESSMENT / PLAN Patient meets ASPEN/AND criteria for Well Nourished (04/08/2022 1:01 PM) See Nutrition Focused Physical Findings section for details. Nutrition Intervention: Interventions: Provide education to increase nutrition knowledge Recommendations: No changes at this time; continue current nutrition orders Monitoring/Evaluation: Nutrition parameter to monitor: None Required Nutritional Barriers to Discharge No nutritional barriers to discharge Desired Outcome: optimal renal health, reduce risk of food borne illness Patient Goal(s): 1. Follow post-kidney transplant nutrition recommendations as discussed For questions about patient's nutritional care please contact pager [phone] on weekdays or [phone] on weekends/holidays. Patricia Cox M.D. - 04/08/2022 8:03 AM CDT SUBJECTIVE Ms. Wray is a 61 y.o. female who is POD #1 from a Donor Kidney Transplant. Transplant Summary: ESRD Cause: Unknown etiology Date of Transplant: 04/06/2022 - 04/07/2022 Retransplant: yes Type of Transplant: Donor Kidney [...] months DDK: yes PHS increased risk: no Patient was seen by the Kidney/Wang team. She has been feeling okay. But she complains of bladder spasms. No fever noted overnight. She denies any nausea, vomiting, diarrhea. OBJECTIVE BP 139/78 (BP Location: Left arm;Upper) Pulse 62 Temp 36.4 ??C (Oral) Resp 16 Ht 165.4 cm Wt 107 kg SpO2 94% BMI 39.19 kg/m?? Intake & Output Intake/Output Summary (Last 24 hours) at 04/08/2022 0803 Last data filed at 04/08/2022 0650 Gross per 24 hour Intake 3022.5 ml Output 2150 ml Net 872.5 ml PHYSICAL EXAMINATION General: well-appearing and in no acute distress Neuro: alert and oriented Heart: S1, S2 normal. No edema Lungs: Lungs clear bilaterally Abdomen: Soft and Nontender. Bowel sounds hypoactive Surgical Wound: Clean, dry, and intact ASSESSMENT / PLAN #1 donor kidney transplant on 04/06 #2 End-stage renal disease, unknown etiology #3 History of renal transplant, 2007, complicated by allograft UPJ obstruction requiring repeated ureteral stent exchanges #4 History of melanoma Patient appears to have good allograft function. Creatinine is 7.26 from 6.72 compared to 10.3 to prior to transplant. Urine output 1.5 L for the past 24 hours. Prior to transplant, patient was making little urine. PLAN: - Stent not attached to pena; remove on day 3, outpatient to remove 2 stent- VTE , 1 from this surgery 1 from previous surgery . -VTE prophylaxis: SCD's - GI Prophylaxis: Protonix - Immunosuppression: Tacrolimus, CellCept, Prednisone standard taper. Will initiate Tacrolimus 3mg BID Tacrolimus goal range 8-10 first month. 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 We discussed about risk and benefits with the patient. #6 Hyperglycemia Blood glucose range 280. We will consult DCS and start appropriate insulin sliding scale. Disposition: Anticipated dismissal date: POD #2-3 depending on hospital course. Multidisciplinary Rounds: Reviewed recommendations of Transplant Surgery, Nursing, Agile Java Developer, Pharmacist, Glassware Defect Repairer, Case Management and Hospital Coordinator. Nicole Segundo I., Pharm.D., R.Ph. - 04/07/2022 3:17 PM CDT Images from the original note were not included. Transplant Pharmacist Note Shabnam Wray is a 61 y.o. 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 PMH: CKD S5 2/2 unknown etiology s/p kidney transplant 2007 complicated by allograft UPJ obstructionrequiring repeat exchanges, recurrent clot at dialysis access, hx melanoma, hypertension, depression, hx COVID-19 OBJECTIVE Immunosuppression Regimen and Goal Range: - Induction: Basiliximab 20 mg IV on POD 0 & 4 - Mycophenolate mofetil 750 mg orally twice daily - Standard steroid taper to prednisone 5 mg orally daily - Tacrolimus 3 mg orally twice daily; Goal trough = 8-10 ng/mL x1 month then 6-8 ng/mL; Last level : Infectious Disease Prophylaxis: CMV Dpend/R+; EBV Dpend/R- - Cefazolin IV x24 hrs post-op - HSV/CMV: Valganciclovir 450 orally daily x3 months [end 07/07/22] - Adjust for kidney function - PCP: Bactrim 400 mg/80 mg orally daily x6 months [end 09/27/22] - Fungal: Nystatin orally four times daily [through hospital admission] - COVID-19: Offer Evusheld prior to dismissal. Drug Interactions: - Bactrim and steroids will impact warfarin sensitivity and dosing needs. 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 Urine output today 850 mL so far. Lab Results Component Value Date CREATININE 6.72 (H) 04/07/2022 CREATININE 6.04 (H) 04/06/2022 CREATININE 10.32 (H) 04/06/2022 Prophylaxis: - GI: Protonix 40 mg orally daily Home Medications: - Held: kidney failure medications. - Changed:immunosuppression and infection prophylaxis - Patient own medications: none Admission Medication Histor Adherence issues: No concerns Medication list source: Patient Medication related information: - Warfarin dosed 4 mg daily, patient reports recent INRs on low end or just below goal range. Prior to Admission Medications Med List Status: Pharmacy/RN Complete Set By: Nicole Segundo I., Pharm.D., R.Ph. at 04/07/2022 12:19 PM Taking? Last Dose Informant Start Date End Date LT calcium carbonate (TUMS) 500 mg (200 mg calcium) chewable tablet -- -- -- Chew 2 tablets 2 (two) times a day with meals. Lunch and dinner. gabapentin (NEURONTIN) 100 mg capsule -- 04/15/21 -- TAKE 3 CAPSULES BY MOUTH IN THE MORNING AND 2 CAPSULES IN THE EVENING hydrocortisone (for_HYTONE) 2.5 % cream -- 09/18/17 -- Apply 1 application topically daily as needed (Eczema). lidocaine-prilocaine (EMLA) 2.5-2.5 % cream -- 09/15/19 -- APPLY TOPICALLY TO DIALYSIS ACCESS SITE 30 MINUTES PRIOR TO TREATMENT--GENERIC FOR EMLA nebivolol (BYSTOLIC) 5 mg tablet -- -- -- Take 5 mg by mouth daily. rosuvastatin (CRESTOR) 5 mg tablet -- 12/30/21 -- TAKE 1 TABLET BY MOUTH DAILY Patient taking differently: Take 5 mg by mouth at bedtime. sertraline (ZOLOFT) 25 mg tablet -- 07/01/21 07/01/22 Take 1 tablet (25 mg total) by mouth daily. Patient taking differently: Take 25 mg by mouth at bedtime. sevelamer carbonate (Renvela) 800 mg tablet -- 02/27/22 02/27/23 Take 1 tablet (800 mg total) by mouth daily. Notes: This is RENVELA please fill! sevelamer HCL (RENAGEL) 800 mg tablet -- 02/27/22 02/27/23 Take 1 tablet (800 mg total) by mouth daily. warfarin (COUMADIN) 4 mg tablet -- -- -- Take 4 mg by mouth daily. INR goal 2-3. Take as directed per After Visit Summary. -- -- -- -- Notes: ASSESSMENT / PLAN Summary and Recommendations - s/p donor kidney transplant 04/06/22 with Basiliximab induction, standard steroid taper, mycophenolate and tacrolimus (goal 8-10 ng/mL) - Infection prophylaxis with Valcyte x3 months, Bactrim x6 months, and nystatin through hospital admission. - Recurrent clots on dialysis access, planning to resume warfarin tomorrow per rounds discussion. Planing follow up with vascular medicine. - Gabapentin cleared by kidneys. Patient may need dose increase to maintain efficacy post kidney transplant. - medications currently dosed for eCrCl ~40 mL/min. Adjust as indicated. Dismissal Planning - Offer Evusheld prior to dismissal. - Changes to medications anticipated at discharge: New immunosuppression New infectious disease prophylaxes Possible post-operative pain medications as appropriate and bowel regimen while on post-operative opioids - No pharmacotherapeutic barriers to discharge from the hospital are identified at this time. Nicole Segundo, Pharm.D., R.Ph. [phone] Dara Acosta R.N., CCTN - 04/07/2022 11:46 AM CDT CHIEF COMPLAINT / PURPOSE OF VISIT Multidisciplinary Rounds / Inpatient nurse coordinator visit IMPRESSION / REPORT / PLAN Kidney transplant multidisciplinary hospital rounds were conducted on 04/07/22. Please refer to the oracle security consultant note dated 04/07/22 for the hospital care follow- up plan. Attendees Transplant Surgeon: Not present but available by pager Transplant Home Theater Expert: Dennis Rubalcava MD CORK CUTTER / PA: Alvaro Nicholas, OPTOMETRIST OWNER, ORGAN PIPE VOICER, DNP Transplant Surgery Fellow: Not present but available by pager Nephrology Fellow: Marietta Martins Inpatient RN Asphalt Mixer: Fiona Acosta RN, CCTN Inpatient Pharmacy: Dennis Segundo PharmD, [facility] Clinical Dietitian: Dennis Almaguer RDN, JAIME Social Work/Screen Printing Machine Loader Unloader:Alvaro Lewis RN, Screen Printing Machine Loader Unloader Inpatient RN: Jennifer Lyles RN, [facility] Guests: none I had the opportunity to visit Mrs. Wray in the inpatient care unit and introduced myself to her as the inpatient scrap yard workerprogram proposals coordinator. I reviewed my role within the multidisciplinary team, providing context by noting that I take on the role of her outpatient program proposals coordinator during inpatient hospitalization. I also reviewed the roles of other team members such as the hospital RN, physicians, and CORK CUTTER/PAs. As a member of the multidisciplinary transplant team, I will be available to assist with dismissal planning, patient education, communicating the plan of care, and answering questions that may arise. Patient verbalized understanding. We reviewed length of stay in [place], outpatient follow up routines, and general information regarding transplant medications. Hospital dismissal planned for 04/10/2022 with the following: ureteral stent in place requiring removal via cystoscopy scheduled in two weeks. Induction was with basiliximab with prednisone. Barriers to dismissal: caregiver arriving Sunday and touring [employer] at that time, OK to dismiss Sunday evening as long as caregiver/lodging arranged. Tour at [employer] set up for 4pm. At the time of transplant, the patient's Karnofsky's score was : 80% - Normal Activity with Effort: Some Symptoms of Disease I will continue to coordinate with the Multidisciplinary Transplant Team and meet regularly with theinpatient RN to sustain the patient???s hospital discharge goals. I reviewed the plan of care for the day, provided support, and answered patient/caregiver questions. Patient verbalized understanding of plan. An Nicholas APRN, C.N.P., D.N.P., M.S.N. - 04/07/2022 6:15 AM CDT SUBJECTIVE Ms. Wray is a 61 y.o. female who is POD #1 from a Donor Kidney Transplant. Transplant Summary: ESRD Cause: Unknown etiology Date of Transplant: 04/06/2022 - 04/07/2022 Retransplant: yes Type of Transplant: Donor Kidney [...] months DDK: yes PHS increased risk: no Patient was seen by the Kidney/Wang pain is well controlled with current pain regimen, she has not yet been out of bed but she arrived back from surgery at 1:00 a.m.. She denies any nausea or vomiting. She had a dose of labetalol for hypertension overnight. creas transplant team. No acute events overnight. Her friend from [place] will be her caregiver and is not going to arrive in [place] from [place] until maybe Sunday. She is feeling well, she has no complaints at this time. OBJECTIVE BP (!) 163/84 Pulse 62 Temp 36.4 ??C (Oral) Resp 17 Ht 165.4 cm Wt 100 kg SpO2 99% BMI36.55 kg/m?? Intake & Output Intake/Output Summary (Last 24 hours) at 04/07/2022 1200 Last data filed at 04/07/2022 1030 Gross per 24 hour Intake 6197 ml Output 2920 ml Net 3277 ml PHYSICAL EXAMINATION General: well-appearing and in no acute distress Neuro: alert and oriented Heart: S1, S2 normal. No edema Lungs: Lungs clear bilaterally Abdomen: Soft and Nontender. Bowel sounds hypoactive Surgical Wound: Clean, dry, and intact ASSESSMENT / PLAN #1 Chronic Kidney Disease NOS #2 Hyperlipidemia #3 Depression Major One Episode Full Remission (HCC) #4 Chronic Kidney Disease Stage 5 Glomerular Filtration Rate Less Than 15 (HCC) #5 Transplant Renal ([facility]) #6 Hypertension And Chronic Kidney Disease Stage 1 To 4 #7 Anticoagulant Therapy #8 Hyperkalemia Patient appears to have good allograft function. Creatinine is 6.7 to this morning compared to 10.3 to prior to transplant. Urine output 7 about 600 cc since 1:00 a.m. Prior to transplant, patient was making little urine. PLAN: - Will discontinue fluid replacement, but will continue maintenance fluids. LR at 75. Advance diet as tolerated - Stent not attached to pena; remove on day 3, outpatient to remove 2 stent- VTE , 1 from this surgery 1 from previous surgery -VTE prophylaxis: SCD's - GI Prophylaxis: Protonix - Immunosuppression: Tacrolimus, CellCept, Prednisone standard taper. Will initiate Tacrolimus 3mg BID Tacrolimus goal range 8-10 first month. - Antiinfectives: Valcyte x 3 months, renally dosed, Bactrim x 6 months - hypertension-restart her beta-leana Bystolic at 5 mg daily -Hyperkalemia this a.m-hyperkalemia protocol, recheck K after protocol. -Warfarin- will resume on discussion with surgical team, as early as tomorrow. Disposition: Anticipated dismissal date: POD #2-3 depending on hospital course. Multidisciplinary Rounds: Reviewed recommendations of Transplant Surgery, Nursing, Agile Java Developer, Pharmacist, Glassware Defect Repairer, Case Management and Hospital Coordinator. Associated attestation - Tony Rubalcava M.B., Mukund Otoole - 04/07/2022 12:10 PM CDT I personally saw and examined the patient and discussed the case during the Multidisciplinary Kidneyand Pancreas Transplant morning rounds. I reviewed the history, physical exam and plan of care documented by Ms. Nicholas and agree with her documentation with the following additions: Kidney Recipient Progress Note, 1 Day Post-Op Alert and orientated and wanting to advance diet today. Abdomen is soft nontender with dry incision. No peripheral edema Will check with surgeon with regards to restarting warfarin today-this is for fistula vascular access. If restarting warfarin then we will need vascular Medicine follow-up for anticoagulation as an outpatient. Ureteric stent not attached to catheter and will need cystoscopy. She has both old kidney stented site 2 and new kidney stent insight 2 would benefit from both stents being removed at cystoscopy. Explained this to the patient given her prior minimal urine output from her right 1st kidney transplant. This would reduce her infection risk long-term. Will need close follow-up given her 3 prior melanomas for skin monitoring and will benefit from early Dermatology at her 4 month visit as well as 6 monthly reviews. Aim for dismissal day to tomorrow if able to mobilize well and tolerating oral diet and medications. Will see on [facility]OC on Sunday with labs. #1 Chronic Kidney Disease NOS #2 Hyperlipidemia #3 Depression Major One Episode Full Remission (HCC) #4 Chronic Kidney Disease Stage 5 Glomerular Filtration Rate Less Than 15 (HCC) #5 Transplant Renal (HCC) #6 Hypertension And Chronic Kidney Disease Stage 1 To 4 #7 Anticoagulant Therapy #8 Hyperkalemia Dunia Vargas M.D. - 04/06/2022 6:11 PM CDT HISTORY OF PRESENT ILLNESS Ms. Wray is admitted for probable kidney transplantation. IMPRESSION/REPORT/PLAN #1 Stage V CKD I discussed kidney transplantation in detail with the patient. This discussion included the technical aspects of the operation as well as the following complications: Bleeding, infection, incisional hernia, anastomotic leakage, rejection, the need for immunosuppressive therapy, and allograft thrombosis. INFORMED CONSENT Discussed the risks, benefits, and alternatives of the procedure and of possible blood transfusion. Discussed advance directives and the necessity of other members of the healthcare team participating in the procedure. All questions answered and consent given. The risks, benefits, and alternatives to the planned procedure were discussed in detail, including the risk of exposure to COVID-19 within the facility. Careful consideration was given to the urgency of the procedure, which has been reviewed and confirmed by practice leadership. Additional consideration has been given to the availability of staff, supplies and equipment, including but not limited to a post-operative bed, a ventilator in the intensive care unit, blood products, and personal protective equipment. All questions pertaining to the procedure and these risks were answered, and the patientagreed to proceed. The following information regarding COVID-19 and donors was discussed: in order to decreasethe chances of transmission of infection after transplant, all organ donors are carefully screened for risk factors associated with COVID- 19 exposure. Some donors may be tested for COVID-19 viral infection. The results for COVID-19 testing on this donor is negative. Due to limitations of the COVID- 19 test, some donors who have been tested for COVID-19 and have a negative test result may still be at risk for transmitting COVID-19 infection. The risk of ayden COVID-19 infection from this donor is unknown at this time. There is no penalty on your waitlist status if you choose to decline this organ offer. I have discussed the risks for this donor regarding COVID-19 infection with the patient. All questions have been addressed to the patient's satisfaction. The patient verbally consented to receive this organ. Dunia Vargas MD documented in this encounter H&P Notes Tony Rubalcava M.B., Mukund Otoole - 04/06/2022 5:55 PM CDT Pretransplant HOWIE evaluation for a donor kidney transplant. HISTORY OF PRESENT ILLNESS Ms. Wray is a 61-year-old, female who has end-stage kidney disease of unknown etiology with a donor kidney transplant in 2018 with UPJ obstruction requiring repeat ureteric stent exchanges which then ultimately failed in 2017 and has been on hemodialysis since then. She has returned from vacation in [place] and her last dialysis was on Sunday and was due to dialyze today in [facility]. In addition to end-stage kidney disease on dialysis, she has hypertension, hyperlipidemia, obesity (BMI 37), and prior kidney transplant; and she had 3 superficial melanomas per her report on the left side of her body, nose, arm and leg which she was cleared for transplantation. She has no further lesions at this point. She is maintained on warfarin for vascular access with an AV graft in her right upper arm. CURRENT MEDICATIONS I reviewed her medications with her. OBJECTIVE PHYSICAL EXAMINATION General : She is comfortable at rest. Heart: She has a right AV graft in her upper arm which is functioning which gives a bruit through the precordium. She has a soft systolic murmur at the left sternal edge which radiates to the carotids. Lungs: Clear bilaterally. Abdomen: Soft and nontender. She has pulses in both groins. Extremities : No peripheral edema. Neurologic : She is alert, orientated with no focal neurological deficit. Skin: Examining her arms, back, face, there are no new skin lesions. ASSESSMENT / PLAN #1 Prior failed renal transplant in the setting of UPJ obstruction with stent exchanges with a stentin situ which was last exchanged on January 05, 2022 We will need to remove her stent at some point to reduce risk of infection in the context of a new functioning kidney transplant. This can be done during the TCOC time. #2 Hemodialysis via right AV fistula This lady has not dialyzed since Sunday. Her labs are not back yet and subsequently came back. We will dialyze her for 2 hours, 1.5 L fluid removal on a 2 K bath, 2.5 calcium bath. I spoke to dialysis who will start this and she will go to the operating room from dialysis. #3 Prior history of malignant melanoma This was removed 2-3 years ago per patient report. I was unable to see dates in the record. In the context of prior kidney transplant and melanoma at age 61, we will use basiliximab induction and standard taper of steroids. #4 Obesity Encourage mobility posttransplant and wound care. #5 No prior history of cardiovascular and pulmonary disease Asymptomatic at present. No chest pain, shortness of breath or fevers. A-OK to proceed to transplantation. #6 Hypertension Her blood pressure is stable at present and we will continue to monitor this in the posttransplant phase. She is 4 kg above her dry weight at admission and we will look to remove 1.5 L to be improved prior to anesthesia and surgery. ADDENDUM: Chest x-ray reviewed without significant abnormality. EKG shows sinus rhythm. Lab results show a hemoglobin 10.3. INR is 2.0, we will liaise with the surgeons with regards to this. Potassium is 5.6. Weare giving 2 hours of dialysis. Rest of her laboratory results are within range. Her UA showed significant red cells, white cells in keeping with a stent. She had a positive Gram stain and will get antibiotics, although this is a mixed Gram positive or Gram negative and likely colonized and she has minimal urine output. She reports about less than half a cup per day. Patricia Cox M.D. - 04/06/2022 7:47 AM CDT Pre-Anesthesia Medical Evaluation prior to planned Kidney Transplant: Subjective: Chief Complaint/Reason for Visit Shabnam Wray is a pleasant 61 y.o. female who presents for pre-anesthesia medical evaluation for a donor kidney transplant scheduled on 04/06/2022. History of Present Illness: Shabnam Wray is a pleasant 61 y.o. female with history significant for end-stage renal diseasesecondary to Unknown etiology who was evaluated by Dr. Jeni Cantrell and approved on 04/14/2022 toreceive a kidney transplant. DSA screen positive, no recent flow cross-match. 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 On 02/14/2022, the patient underwent ventral hernia repair. The patient has been getting dialysis on Sunday/Sunday/Sunday at [facility]. The patient does have history of kidney transplant in 2007 complicated by a local UPJ obstruction requiring repeated ureteral stent exchange. Last ureteral stent exchange in December 2021. Patient is a former smoker but stated that she has not received lung cancer screening. The patient also underwent dobutamine stress echo which was negative for myocardial ischemia, LVEF 62% at rest to 70% at peak stress. RVSP 27. Sclerotic aortic valve noted with concentric left ventricular hypertrophy. She supposed to arrive at [place] in the late morning. But she arrives here around 2:30 p.m. Since her last evaluation, patient has been doing well. She denies any ED visits or hospitalizations. She denies any recent infections. She denies any chest pain at rest or on exertion, is not able to climb flight of stairs with no limitation. She currently receives dialysis in the form of Hemodialysis on a MWF schedule, last dialysis being 04/03/2022. She does make less than 20 mL of urine. The patient has right-sided AV graft for her dialysis schedule on Mondays and Sunday. The following portions of the patient's history were reviewed and updated as appropriate: allergies,current medications, family history, medical history, social history, surgical history, and problem list. Review of Systems All other systems reviewed and are negative. No current facility-administered medications for this encounter. Current Outpatient Medications: acetaminophen (TYLENOL) 500 mg tablet, Take 2 tablets (1,000 mg total) by mouth every 6 (six) hoursas needed for pain., Disp: , Rfl: amLODIPine (NORVASC) 5 mg tablet, TAKE 1 TABLET(5 MG) BY MOUTH EVERY EVENING, Disp: 90 tablet, Rfl:3 amoxicillin-pot clavulanate (AUGMENTIN) 250-125 mg per tablet, On Sunday, Sunday, and Sunday take 1 tablet in the morning prior to dialysis. Take 1 tablet after dialysis is completed. On Sunday,, Sunday, and Sunday take 1 tablet in the morning only. Complete 10 day course., Disp: 16 tablet, Rfl: 0 Bystolic 10 mg tablet, TAKE 1 TABLET(10 MG) BY MOUTH DAILY, Disp: 90 tablet, Rfl: 3 calcium carbonate (TUMS) 500 mg (200 mg calcium) chewable tablet, Chew 2 tablets 2 (two) times a day with meals. Lunch and dinner. , Disp: , Rfl: chlorhexidine (PERIDEX) 0.12 % mouthwash, , Disp: , Rfl: gabapentin (NEURONTIN) 100 mg capsule, TAKE 3 CAPSULES BY MOUTH IN THE MORNING AND 2 CAPSULES IN THE EVENING, Disp: 450 capsule, Rfl: 3 hydrocortisone (for_HYTONE) 2.5 % cream, Apply 1 application topically daily as needed (Eczema). , Disp: , Rfl: lidocaine-prilocaine (EMLA) 2.5-2.5 % cream, APPLY TOPICALLY TO DIALYSIS ACCESS SITE 30 MINUTES PRIOR TO TREATMENT--GENERIC FOR EMLA, Disp: 60 g, Rfl: 11 mycophenolate (CELLCEPT) 250 mg capsule, TAKE 1 CAPSULE(250 MG) BY MOUTH TWICE DAILY. DO NOT BREAK,CUT, OR OPEN CAPSULES, Disp: 180 capsule, Rfl: 3 predniSONE (DELTASONE) 5 mg tablet, TAKE 1 TABLET(5 MG) BY MOUTH DAILY, Disp: 90 tablet, Rfl: 3 rosuvastatin (CRESTOR) 5 mg tablet, TAKE 1 TABLET BY MOUTH DAILY, Disp: 90 tablet, Rfl: 3 sertraline (ZOLOFT) 25 mg tablet, Take 1 tablet (25 mg total) by mouth daily., Disp: 90 tablet, Rfl: 3 sevelamer carbonate (Renvela) 800 mg tablet, Take 1 tablet (800 mg total) by mouth daily., Disp: 90tablet, Rfl: 3 sevelamer HCL (RENAGEL) 800 mg tablet, Take 1 tablet (800 mg total) by mouth daily., Disp: 90 tablet, Rfl: 3 tacrolimus (PROGRAF) 1 mg capsule, Take 3 capsules (3 mg total) by mouth every morning AND 2 capsules (2 mg total) every evening., Disp: 450 capsule, Rfl: 3 warfarin (COUMADIN) 2 mg tablet, Take 2-2.5 tablets (4-5 mg total) by mouth daily. 4.5 mg Sun-Sun-Sun, 4 mg other days, Disp: 150 tablet, Rfl: 5 Objective: There were no vitals taken for this visit. Estimated body mass index is 36.33 kg/m?? as calculated from the following: Height as of 02/14/22: 165.4 cm. Weight as of 02/14/22: 99.4 kg. General Appearance: Alert, cooperative, no distress Head: Normocephalic, without obvious abnormality, atraumatic Eyes: PERRL, conjunctiva/corneas clear, EOM's intact Throat: Lips, mucosa, and tongue normal Neck: Supple, symmetrical, trachea midline, no adenopathy; thyroid: No enlargement/tenderness/nodules; no carotid bruit or JVD Lungs: Clear to auscultation bilaterally, respirations unlabored Heart: Regular rate and rhythm, S1 and S2 normal, no murmur, rub or gallop Abdomen: Soft, non-tender, bowel sounds active all four quadrants, no masses, no organomegaly, multiple surgical scar on abdomen. Extremities: Extremities normal, atraumatic, no cyanosis or edema, left clotted nonfunctioning AV fistula noted, right AV graft noted on the upper arm Pulses: 2+ and symmetric all extremities Skin: Skin color, texture, turgor normal, multiple bruises noted on her skin. Neurologic: grossly intact No results found for this or any previous visit (from the past 24 hour(s)). I reviewed the most recent CXR, ECG, electrolyte panel, CBC and INR. 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 Having mild shortness of breath. Last dialysis on Tuesday 04/03. Make less than 20mL of urine. 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 The patient supposed to get hemodialysis today. She will have surgery this afternoon. We need to do emergent hemodialysis today 2 hours with UF 1.5 L before going to surgery. The patient is good candidate for surgery. 6- Planned induction therapy: We will plan for induction with basiliximab with standard taper dose steroid given history of melanoma. documented in this encounter Consult Notes Lola Fink L.I.C.SHeidi., M.S.W. - 04/07/2022 2:53 PM CDTAssociated Order(s): IP CONSULT TO TRANSPLANT SOFTWARE ENGINEERING PROJECT MANAGER Psychosocial Assessment SUBJECTIVE DEMOGRAPHIC INFORMATION Referral Source: Service/Provider Patient seen for: post-transplant of kidney Persons present: patient Previous Psychosocial Assessment : Yes, Date: 04/07/2021, completed by Jana Kali, LUNCH TRUCK DRIVER. Patient's primary care clinic/primary care provider: ELSEWHERE, PCP Primary language: Bruneian For this interview, the patient utilized language services: No Citizenship [place] Citizen Ethnicity/Race: White Descent Disclaimer: The patient was advised regarding the various topics to be interviewed during this evaluation. Patient consented to proceed. The information provided in the assessment is based on review ofthe medical record as well as the face to face interview with the patient. The patient was advised that the content of this interview will be shared with the health care team. It was discussed with thepatient that staff are mandated reporters and they reported understanding. Past Medical and Surgical History: From reviewing the medical record, she had a donor kidney transplant in 2018 with UPJ obstruction requiring repeat ureteric stent exchanges which then ultimately failed in 2017 and has been onhemodialysis since then. The patient shares that she was 2 days into a 30 day vacation in [place] when receiving the call about a potential tranpslant. Transplant organ: kidney Transplant date: 04/06/2022 (Kidney), 04/28/2008 (Kidney) Potential date of discharge: 04/09/2022 Social work met with the patient at hospital bedside on station 10-2 and introduced the role of social work to provide supportive counseling and assistance with discharge plans. SOCIAL HISTORY Marital Status / Family / Household: The patient is . Her mother from Alzheimers/COVID and her father is still living. She resides in a home in [place], [place] with him. Education/Employment Highest level of education: High School (9-12) or GED Working for income: No Reason for not working: Disability Patient's plan for extended time off for recovery: Disability Spiritual Practices/Baptism/Culture Spirituality / Baptism / Culture: Denny Legal History Patient denies current legal issues Community Involvement/ Hobbies: has been busy assisting as a caregiver SOCIAL AND PERSONAL SUPPORT SYSTEMS Psychosocial Risk Factors impacting the patient: mental health Abuse, Neglect, Maltreatment, Trauma: Current: None reported. Past: None reported. ENVIRONMENTAL SUPPORTS Patient's home environment: resides in a home with her father in [place], [place] Anticipated modifications to the patient's home environment: None BASELINE FUNCTIONAL STATUS (ADLs and IADLs) Functional Status: Independent Dressing: independent Bathing: independent Toileting: independent Mobility: independent Meal Prep: independent Medication Setup/Administration: independent Housekeeping: independent ASSISTIVE DEVICES Patient has the following equipment: thermometer and blood pressure cuff Patient anticipates potentially needing the following additional equipment: thermometer and blood pressure cuff as she left them at home Transportation needs: support from family/friends BASELINE SERVICES/RESOURCES Services: dialysis FINANCES/INSURANCE Primary insurance: MEDICARE A AND B Secondary insurance: [place] Discussion occurred today regarding ESRD Medicare and the patient was informed that outpatient social work will provide additional information at a follow up outpatient appointment. The patient is in agreement with the plan. The patient was on Medicare prior to transplant for dialysis and disability. She will also turn 64 years old in 3 years on August 16. Are there any financial concerns/barriers? yes Does the patient have travel reimbursement? yes likely through [employer], but hasn't ever used them before. She is in agreement with Social Work assisting with exploring if she is eligible for the benefit. ADVANCE DIRECTIVES Not on file at this noah OBJECTIVE Discussed patient's progress and plan of care with multidisciplinary team and reviewed the chart. For more complete psychosocial history, please see prior social work clinical notes. MENTAL HEALTH Mental Health History: reports a history of depression following the of her mother. She sharesthat she had previously taken medications for depression and then weaned off of them. She notes thatshe was off of them about 6 months before restarting them 6 months ago. She notes that they have improved in stabilizing her mood. Current Psychological Symptoms: Appearance: relaxed Behavior observed: calm, pleasant, and interactive Level of consciousness: alert and oriented Memory, recent and remote: intact Cooperation: cooperative and forthcoming Attention/Concentration: intact Mood: euthymic Affect: mood-congruent Speech: speech is within normal limits for volume, rate, and tone Thought process: thought process intact and logical and goal oriented Thought content: no abnormality Judgment: intact Depressive Symptoms: none at this time Anxiety Symptoms: normal life stress, managing well Suicide Risk and Safety Risk Assessment: Suicidal: no Homicidal: no SUBSTANCE USE Tobacco: shares that she previously smoked, but quit over 1 year ago with the support of gum. She notes that she has not had any cravings, but also notes avoiding situations that would induce her cravings (ex. Sitting on her patio). Alcohol: none recently Illicit Drugs: none Current Stressors None at this time Coping Skills/Strengths Family support and Time with friends COPING Discussion occurred today regarding potential mood changes post transplant and potential side effects of steroids. She notes having been on prednisone previously and denies any side effects. When reflecting upon transplant, the patient shares that she is looking forward to traveling and a less restrictive diet. Caregiver not present at the time of the visit. Transplant social media assistant reviewed UNOS recipient/donor family communication guidelines. Patient is receptive to this conversation today and affirms a desire to write a thank you letter to the family. Iprovided education regarding principals of timing, confidentiality, and risks and benefits of letterwriting. I reviewed suggested content of the letter, including expressions of sympathy, sharing yourstory, how life has changed, saying thank you, and reassuring the family that you will take good care of yourself. Patient was very appreciative of this overview. ASSESSMENT / PLAN IMPRESSION Patient appears to be coping adequately. She does have a history of depression, but appears stable prior to transplant. Patient has a good caregiving plan in place. They appear eager and motivated to participate in recovery. They have an appropriate discharge plan. The following concerns are identified: financial and a plan is being developed INTERVENTIONS -Education regarding role of social work and discharge planning. -Clinical skills of validating, reflection, normalization, active listening and motivational interviewing provided -Set expectations surrounding discharge planning -Assessed needs, identified risk and protective factors -Coordinated care with nurse and service to ensure continuity of care -Provided supportive, strengths-based counseling related to hospitalization -Psychoeducation and discussion around upcoming transition home post transplant and ongoing recovery. -wireworker supervisor provided supportive counseling regarding the experience of transplant. -Education regarding UNOS recipient/donor family communication guidelines & process for writing to donor families TRANSPLANT DISCHARGE PLAN Primary caregiver Name: Milan Stewart Relationship to patient: friend Can they read: yes Can they write: yes Can they drive: yes Do they have a reliable vehicle: yes Does the caregiver have other responsibilities: No, not at this time. She will be arriving from [place]. Health of the caregiver: good Lodging: hotel on the day of discharge with the goal [facility] Sunday[facility]. Accommodations have been made by Social Work for [facility] hotel check in on 04/09/22 and check out on 04/10/22. The patient was provided with this detailed information. Meals: Patient/visitor cafeteria for patient and caregiver for full day meals on 04/09/22, 04/10/22 and 04/11/22. Patient was given instructions on how to get meals. Post-transplant Specialty pharmacy: able to use the [facility] PATIENT NEEDS/PLAN -Social work will remain available throughout the continuum of transplant. -Patient provided with contact information for inpatient/outpatient social media assistant. Patient was encouraged to call with any questions. -Patient will need packet of information on writing to donor families to be provided at outpatient social work follow-up visit. -Social work provided valerie for one night of lodging and 3 days of meals pending backdating approval from [employer] since a decision wasn't finalized before the weekend. If approved with [facility], then thepatient will need to be notified and provided with their contact information for the future so that she can make her own extensions or reservations in the future. Anticipated barriers to the transition of care/plan: none at this time Alma Mathur, M.S.W. 04/07/2022 documented in this encounter Nursing Notes Joshua Canada R.N. - 04/09/2022 4:27 PM CDT Nurse to nurse handoff sent to post family day care provider Jesika Lowe. No nursing barriers to discharge identified at this time. Joshua Canada R.N. - 04/09/2022 4:12 PM CDT Patient was successfully discharged from the hospital this shift. Indwelling catheter was removed without stent attached. Patient was able to void and empty bladder appropriately. Education was completed and patient DC'd to [facility]. documented in this encounter OR Notes Op Note - Nehemias Felipe M.D. - 04/06/2022 8:33 PM CDT Pre-op Diagnosis Chronic Kidney Disease Post-op Diagnosis Chronic Kidney Disease A operating room assistant actively participated and was necessary for one or more of the following: opening,exposure and visualization during the case, maintaining hemostasis, wound closure resulting in its safe and expeditious completion. Findings Uneventful donor kidney transplant. Left kidney with one artery and one vein. Connected to the left iliac vessels because of the presence of another allograft on the right side. This case was substantially more difficult than usual because of significant effort and difficulty mobilizing and identifying anatomical structures due to altered surgical field secondary to obesity. Complications None Operative Note Narrative The patient was brought to the operating room and placed in the supine position. Following the induction of general anesthesia, a Pean catheter was placed into the bladder, and the abdomen was preppedand draped in the usual manner. A left lower quadrant incision was made. The subcutaneous tissues and abdominal wall musculature were divided using electrocautery. The left external iliac artery and external iliac vein were dissected free along their lengths. Back table preparation of the kidney was performed. It was a left kidney with one artery(ies), one vein(s), and one ureter(s). It was flushed until clear with cold preservation solution. Tributaries tothe vein were ligated. The artery and vein were dissected free from the surrounding tissues in the hilum. The kidney was trimmed of perinephric fat and placed on ice while awaiting implantation. An end-to-side anastomosis was created between the donor renal vein and the recipient left external iliac vein using continuous Prolene sutures. An end-to-side anastomosis was created between the donorrenal artery and the recipient left external iliac artery using continuous Prolene sutures. The vascu lar clamps were released, and reperfusion of the allograft was prompt and uniform. The urinary bladder was identified and opened using electrocautery. A Lich technique was used for ureteral reconstruction. This anastomosis was fashioned over a double J ureteral stent not attached to the catheter. The operative field was inspected for hemostasis which was deemed to be adequate. The muscular fascia was closed in layers and the skin edges were re- approximated. The patient tolerated the procedure well, and there were no immediate complications. Nehemias Felipe M.D. documented in this encounter Miscellaneous Notes Hospital Course - Sam Miller M.D. - 04/07/2022 7:11 AM CDT Ms. Shabnam Wray is a 61 y.o. female admitted to the [facility] kidney/pancreas transplant service for a Donor Kidney Transplant on 04/06/2022 - 04/07/2022. Patient has a history of ESRD secondary to Unknown etiology, was on hemodialysis. Last session was 04/06 prior to transplant. History is significant for hypertension, hyperlipidemia, obesity (BMI 37), and prior kidney transplant; and she had 3 superficial melanomas per her report on the left side of her body, nose, arm and leg which she was cleared for transplantation. She has no further lesions at this point. She is maintained on warfarin for vascular access with an AV graft in her right upper arm. Transplant Summary: ESRD Cause: Unknown etiology Date of Transplant: 04/06/2022 - 04/07/2022 Retransplant: yes Type of Transplant: Donor Kidney [...] months DDK: yes PHS increased risk: no Patient's postoperative course was uncomplicated. Urinary catheter was removed with stent not attached. Day of dismissal serum creatinine level was 7.22 mg/dL (10.32 mg/dL prior to transplant). Ms. Wray was dismissed on POD #3 ambulating, pain was controlled and tolerating a general diet. Transplant Center Outpatient Clinic Follow-up Recommendations 1. Monitor tacrolimus levels and adjust dose accordingly. Tacrolimus started on 04/07/22; patient discharged taking 3 mg BID. 2. close follow-up given her 3 prior melanomas for skin monitoring, early Dermatology at her 4 monthvisit as well as 6 monthly reviews 3. 2 stent- 1 from this surgery 1 from previous surgery, to be removed with Cysto in 2-3 weeks post surgery, ordered documented in this encounter Plan of Treatment Upcoming Encounters Date Type Specialty Care Team Description 06/01/2022 Telemedicine Pharmacy An Nicholas APRN, C.N.P., Michelle.N.P., M.S.N. [address] [place] [address] [phone] (Wo rk) 07/31/2022 Lab Laboratory Medicine Tony Rubalcava M. B., Sydnie, Mukund [address] [place] [address] [phone] (Wo rk) 07/31/2022 Lab Laboratory Medicine Tony Rubalcava M. B., Sydnie, Mukund [address] [place] [address] [phone] (Wo rk) 07/31/2022 Office Visit Transplant Tony Rubalcava M.B., Sydnie, MDebra [address] [place] [address] [phone] (Wo rk) 07/31/2022 Appointment Radiology Tony Rubalcava M.B., ChBurke, MDebra [address] [place] [address] [phone] (Wo rk) 08/01/2022 Office Visit Transplant Tony Rubalcava M.B., Sydnie, MDebra [address] [place] [address] [phone] (Wo rk) 08/01/2022 Clinical Support Transplant Tony Rubalcava M.B., Sydnie, MDebra [address] [place] [address] [phone] (Wo rk) Scheduled Orders Name Type Priority Associated Diagnoses Order S chedule Renal Pathology Pathology and Routine Once for 1 Cytology Occurrences sta rting 04/06/2022 unti l 04/06/2022 documented as of this encounter Procedures Procedure Name Priority Date/Time Associated Comments Diagnosis GLUCOSE POCT, B Routine 04/09/2022 12:26 Results for PM CDT this procedure are [...] 8:01 PM CDT POTASSIUM, S/P Timed 04/07/2022 11:59 Results f or AM CDT this procedure [...] section. ADULT OXYGEN THERAPY Routine 04/07/2022 8:01 AM CDT REMOTE OXIMETRY Routine 04/07/2022 8:01 MONITORING CONT. AM CDT ECG STAT 04/07/2022 7:47 Results for AM CDT this procedure are in the results section. RENAL FUNCTION PANEL, STAT 04/07/2022 6:26 Res ults for S AM CDT this procedure are in [...] 3:05 AM CDT CBC WITH STAT 04/06/2022 11:49 Results for DIFFERENTIAL, B PM CDT this procedu re are in the results section. BASIC METABOLIC STAT 04/06/2022 11:49 Results for PANEL, S/P PM CDT this procedure are in the results section. US KIDNEY TRANSPLANT RAD - Routine 04/06/2022 11:33 Re sults for LEFT WITH DOPPLER (most inpatients PM CDT this p rocedure and all are in the outpatients) results section. DX ABDOMEN PORTABLE RAD - Routine 04/06/2022 11:07 Res ults for ANTERIOR POSTERIOR 1 (most inpatients PM CDT thi s procedure VIEW and [...] re are in the results section. HLA CROSSMATCH 04/06/2022 5:10 Results fo r SUMMARY REPORT PM CDT this procedur e are in the results section. HLA FLOW CYTOMETRIC Routine 04/06/2022 5:10 Resul ts for CROSSMATCH PM CDT this procedure are in the results section. DX CHEST PORTABLE 1 RAD - Routine 04/06/2022 4:35 Resu lts for VIEW (most inpatients PM CDT this proced ure and all are in the outpatients) results section. HIV-1/-2 AG AND AB STAT 04/06/2022 4:30 Result s for SCREEN, PLASMA PM CDT this procedur e are in the results section. WANG/KID POST TRANS STAT 04/06/2022 [...] are in the results section. BILIRUBIN DIRECT, S/P STAT 04/06/2022 4:29 Res ults for PM CDT this procedure are in [...] 4:19 Result s for AEROBIC + SUSC, URINE PM CDT this p rocedure are in the results section. GRAM'S ST, U Routine 04/06/2022 4:19 Results for PM CDT this procedure are in the results section. URINALYSIS WITH Routine 04/06/2022 4:19 Results f or MICROSCOPIC PM CDT this procedure are in the results section. HEMODIALYSIS Routine 04/06/2022 3:34 PM CDT HBS ANTIGEN SCRN, S STAT 04/06/2022 3:28 [...] (APTT), P are in the results section. PROTHROMBIN TIME STAT 04/06/2022 3:28 Results for [...] this procedure are in the results section. documented in this encounter Results (ABNORMAL) Glucose, POCT (04/09/2022 12:26 PM CDT) P athologist Signature Glucose, POCT, 162 (H) 70 - 140 04/09/2022 PCDE B mg/dL 12:29 PM CDT Specimen Anatomical Collection Method Collection Time Receive d Time (Source) Location / / Volume Laterality Blood 04/09/2022 12:26 04/09/2022 PM CDT 12:29 PM CDT Unknown Provider LAB POCT ORDERABLES-MANUAL Performing Organization Address City/[facility] Phon e Number [facility] [address] [place] [address] SERVICES [address] POC [address] Glucose, POCT (04/09/2022 7:39 AM CDT) Analysis Performed At Patho logist Time Signature Glucose, POCT, 125 70 - 140 04/09/2022 PCDE B mg/dL 7:42 AM CDT Site Capillary 04/09/2022 PCDE 7:42 AM CDT Specimen Anatomical Collection Method Collection Time Receive d Time (Source) Location / / Volume Laterality Blood 04/09/2022 7:39 AM 7:42 CDT AM CDT Unknown Provider LAB POCT ORDERABLES-MANUAL Performing Organization Address City/[facility] Phon e Number [facility] [address] [place] [address] SERVICES PCDE [place], [place] [phone] [place] [address] (ABNORMAL) CBC without Differential (04/09/2022 5:27 AM CDT) Patholo gist Method Time Signature Hemoglobin 9.1 (L) 11.6 - 04/09/2022 DTL 15.0 g/dL 6:04 AM CDT Hematocrit 30.4 (L) 35.5 - 04/09/2022 DTL 44.9 % 6:04 AM CDT Erythrocytes 3.19 (L) 3.92 - 04/09/2022 DTL 5.13 6:04 AM CDT x10(12)/L MCV 95.3 78.2 - 04/09/2022 DTL 97.9 fL 6:04 AM CDT RBC Distrib Width 14.7 12.2 - 04/09/2022 DTL 16.1 % 6:04 AM CDT Platelet Count 127 (L) 157 - 371 04/09/2022 DTL x10(9)/L 6:04 AM CDT Leukocytes 10.3 (H) 3.4 - 9.6 04/09/2022 DTL x10(9)/L 6:04 AM CDT Specimen Anatomical Collection Method Collection Time Receive d Time (Source) Location / / Volume Laterality Blood (Blood, 04/09/2022 5:27 AM 04/09/20 5:53 Venous) CDT AM CDT Dunia Vargas M.D. LAB BLOOD ADD-ON Performing Organization Address City/State/ZIP Code Phon e Number [facility] - [address] [place], [place] [address] [facility] [address] Laboratories-[facility] 200 [facility] (ABNORMAL) Basic Metabolic Panel (04/09/2022 5:27 AM CDT) Analysis Performed At Patho logist [...] 04/09/2022 DTL Black/ mL/min/BSA 6:35 AM CDT Haitian Comment: ----ADDITIONAL INFORMATION---- Estimated GFR calculated using [...] Address City/State/ZIP Code Phon e Number [facility] - [address] [place], [place] [address] [facility] [place] [address] Laboratories-[facility] [address] (ABNORMAL) Tacrolimus, B (04/09/2022 5:27 AM CDT) P athologist Signature Tacrolimus, B 4.8 (L) 5.0-15.0 04/09/2022 SDSC (Trough) 1:08 PM CDT ng/mL Comment: ----ADDITIONAL INFORMATION---- Target steady-state trough concentration s vary depending on the type of transplant, concomitant immunosuppressio n, clinical/institutional protocols, and time post-transplant. Results should be interpreted in conjunction with this clinical information and any physic al signs/symptoms of rejection/toxicity. Testing performed by Liquid Chromatograp hy-Tandem Mass Spectrometry (LC-MS/MS). This test was developed and its performa nce characteristics determined by [facility] in a manner consistent with CLIA requirements. This test has not been cleared or approved by the [place] d and Drug Administration. Specimen Anatomical Collection Method Collection Time Receive d Time (Source) Location / / Volume Laterality Blood (Blood, 04/09/2022 5:27 AM 04/09/20 9:15 Venous) CDT AM CDT An Nicholas APRN, C.N.P., Michelle.N.P., M.S.N. LAB BLOOD NON ADD-ON Performing Organization Address City/[facility]/ZIP Code Phon e Number [facility] [address] [place], [place] [address] [facility] [place] [address] Laboratory Medicine and Pathology [address] [place] (ABNORMAL) Phosphorus Inorganic (04/09/2022 5:27 AM CDT) P athologist Signature Phosphorus 6.5 (H) 2.5 - 4.5 04/09/2022 DTL (Inorganic), S mg/dL 6:35 AM CDT Specimen Anatomical Collection Method Collection Time Receive d Time (Source) Location / / Volume Laterality Blood (Blood, 04/09/2022 5:27 AM 04/09/20 22 6:10 Venous) CDT AM CDT Dunia Vargas M.D. LAB BLOOD ADD-ON Performing Organization Address City/[facility]/ZIP Code Phon e Number [facility] - [address] [place], [place] [address] Magnesium (04/09/2022 5:27 AM CDT) P athologist Signature Magnesium, S 2.0 1.7 - 2.3 04/09/2022 DTL mg/dL 6:35 AM CDT Specimen Anatomical Collection Method Collection Time Receive d Time (Source) Location / / Volume Laterality Blood (Blood, 04/09/2022 5:27 AM 04/09/20 22 6:10 Venous) CDT AM CDT Dunia Vargas M.D. LAB BLOOD ADD-ON Performing Organization Address City/State/ZIP Code Phon e Number [facility] - [address] [place], [place] [address] [facility] [place] [address] [facility] [address] (ABNORMAL) Glucose, POCT (04/08/2022 7:04 PM CDT) Analysis Performed At Patho logist Time Signature Glucose, POCT, 226 (H) 70 - 140 04/08/2022 PCDE B mg/dL 7:08 PM CDT Site Capillary 04/08/2022 PCDE 7:08 PM CDT Last Intake 1-2 hours 04/08/2022 PCDE 7:08 PM CDT Specimen Anatomical Collection Method Collection Time Receive d Time (Source) Location / / Volume Laterality Blood 04/08/2022 7:04 PM 7:08 CDT PM CDT Unknown Provider LAB POCT ORDERABLES-MANUAL Performing Organization Address City/State/ZIP Code Phon e Number [facility]S [address] [place] [address] [facility] [place] [address] [place] [facility] [address] [facility] [address] (ABNORMAL) CBC without Differential (04/08/2022 6:48 AM CDT) Patholo gist Method Time Signature Hemoglobin 9.0 (L) 11.6 - 04/08/2022 DTL 15.0 g/dL 7:48 AM CDT Hematocrit 29.9 (L) 35.5 - 04/08/2022 DTL 44.9 % 7:48 AM CDT Erythrocytes 3.15 (L) 3.92 - 04/08/2022 DTL 5.13 7:48 AM CDT x10(12)/L MCV 94.9 78.2 - 04/08/2022 DTL 97.9 fL 7:48 AM CDT RBC Distrib Width 15.0 12.2 - 04/08/2022 DTL 16.1 % 7:48 AM CDT Platelet Count 140 (L) 157 - 371 04/08/2022 DTL x10(9)/L 7:48 AM CDT Leukocytes 9.7 (H) 3.4 - 9.6 04/08/2022 DTL x10(9)/L 7:48 AM CDT Specimen Anatomical Collection Method Collection Time Receive d Time (Source) Location / / Volume Laterality Blood (Blood, 04/08/2022 6:48 AM 04/08/20 7:39 Venous) CDT AM CDT Dunia Vargas M.D. LAB BLOOD ADD-ON Performing Organization Address City/State/ZIP Code Phon e Number [facility] - [address] [place], [place] [address] [facility] [place] [address] Laboratories-[facility] [address] [facility] (ABNORMAL) Basic Metabolic Panel (04/08/2022 6:48 AM CDT) Analysis Performed At Patho logist Time Signature Potassium, S 5.2 3.6 - 5.2 04/08/2022 DTL mmol/L 8:35 AM CDT Sodium, S 130 (L) 135 - 145 04/08/2022 DTL mmol/L 8:35 AM CDT Chloride, S 91 (L) 98 - 107 04/08/2022 DTL mmol/L 8:35 AM CDT Bicarbonate, S 20 (L) 22 - 29 04/08/2022 DTL mmol/L 8:35 AM CDT Anion Gap 19 (H) 7 - 15 04/08/2022 DTL 8:35 AM CDT BUN (Blood Urea 50 (H) 6 - 21 04/08/2022 DTL Nitrogen), S mg/dL 8:35 AM CDT Creatinine 7.26 (H) 0.59 - 04/08/2022 DTL 1.04 mg/dL 8:35 AM CDT eGFR-Non <15 (L) >=60 04/08/2022 DTL Black/ mL/min/BSA 8:35 AM CDT Haitian Comment: ----ADDITIONAL INFORMATION---- Estimated GFR calculated using the 2009 CKD_EPI creatinine equation. eGFR-Black/ <15 (L) >=60 mL/min/BSA 2021 8:35 AM CDT DTL Comment: ----ADDITIONAL INFORMATION---- Estimated GFR calculated using the 2009 CKD_EPI creatinine equation. Calcium, Total, S 8.4 (L) 8.8 - 10.2 mg/dL 04/08/2022 8:35 AM CDT DTL Glucose, S 157 (H) 70 - 140 mg/dL 04/08/2022 8:35 AM CDT D TL Specimen Anatomical Collection Method Collection Time Receive d Time (Source) Location / / Volume Laterality Blood (Blood, 04/08/2022 6:48 AM 08/20/20 22 7:38 Venous) CDT AM CDT Dunia Vargsa M.D. LAB BLOOD ADD-ON Performing Organization Address City/[facility]/ZIP Code Phon e Number [facility] - [id number] [place] [address] (ABNORMAL) Potassium (04/07/2022 11:59 AM CDT) P athologist Signature Potassium, S 5.5 (H) 3.6 - 5.2 04/07/2022 DTL mmol/L 12:41 PM CDT Specimen Anatomical Collection Method Collection Time Receive d Time (Source) Location / / Volume Laterality Blood (Blood, 04/07/2022 11:59 04/07/2022 Venous) AM CDT 12:28 PM CDT An Nicholas APRN C.N.P., D.N.P., M.S.N. LAB BLOOD ADD-ON Performing Organization Address City/[facility] Code Phon e Number [facility] - [id number] [place] [address] (ABNORMAL) Glucose, POCT (04/07/2022 9:56 AM CDT) Analysis Performed At Patho logist Time Signature Glucose, POCT, 284 (H) 70 - 140 04/07/2022 PCDE B mg/dL 10:05 AM CDT Site Capillary 04/07/2022 PCDE 10:05 AM CDT Specimen Anatomical Collection Method Collection Time Receive d Time (Source) Location / / Volume Laterality Blood 04/07/2022 9:56 AM CDT 10:05 AM CDT Unknown Provider LAB POCT ORDERABLES-MANUAL Performing Organization Address City/[facility]/ZIP [facility] Phon e Number [facility]S [address] [place] [address] [place] [address] [place] [facility] [address] [place] [address] (ABNORMAL) Glucose, POCT (04/07/2022 9:20 AM CDT) Analysis Performed At Patho logist Time Signature Glucose, POCT, 282 (H) 70 - 140 04/07/2022 PCDE B mg/dL 9:22 AM CDT Site Capillary 04/07/2022 PCDE 9:22 AM CDT Specimen Anatomical Collection Method Collection Time Receive d Time (Source) Location / / Volume Laterality Blood 04/07/2022 9:20 AM 2 9:22 CDT AM CDT Unknown Provider LAB POCT ORDERABLES-MANUAL Performing Organization Address City/[facility]/ZIP Code Phon e Number [facility] [address] [place] [address] [facility] [place] [address] [place] [facility] 200 [facility] (ABNORMAL) Glucose, POCT (04/07/2022 8:39 AM CDT) Analysis Performed At Patho logist Time Signature Glucose, POCT, 294 (H) 70 - 140 04/07/2022 PCDE B mg/dL 8:43 AM CDT Site Capillary 04/07/2022 PCDE 8:43 AM CDT Specimen Anatomical Collection Method Collection Time Receive d Time (Source) Location / / Volume Laterality Blood 04/07/2022 8:39 AM 2 8:43 CDT AM CDT Unknown Provider LAB POCT ORDERABLES-MANUAL Performing Organization Address City/[facility] Code Phon e Number [facility] [address] [place] [address] [place] [address] [place] [facility] 200 [facility] (ABNORMAL) Glucose, POCT (04/07/2022 8:06 AM CDT) Analysis Performed At Patho logist Time Signature Glucose, POCT, 233 (H) 70 - 140 04/07/2022 PCDE B mg/dL 8:53 AM CDT Site Capillary 04/07/2022 PCDE 8:53 AM CDT Last Intake 1-2 hours 04/07/2022 PCDE 8:53 AM CDT Specimen Anatomical Collection Method Collection Time Receive d Time (Source) Location / / Volume Laterality Blood 04/07/2022 8:06 AM 2 8:53 CDT AM CDT Unknown Provider LAB POCT ORDERABLES-MANUAL Performing Organization Address City/State/ZIP Code Phon e Number [facility] [address] [place] [address] [facility] [place] [address] [place] [facility] 200 [facility] ECG 12 Lead (04/07/2022 7:47 AM CDT) P athologist Signature Ventricular Rate 64 BPM MUSE ECG/Min HI Interval 196 ms MUSE QRSD Interval 90 ms MUSE QT Interval 440 ms MUSE QTC Interval 453 ms MUSE P [place] 41 degrees MUSE R [place] -25 degrees MUSE T Wave [place] 31 degrees MUSE Specimen Anatomical Collection Method [...] Code Phon e Number MUSE MUSE NA (ABNORMAL) CBC without Differential (04/07/2022 6:26 AM CDT) Patholo gist Method Time Signature Hemoglobin 9.9 (L) 11.6 - 04/07/2022 DTL 15.0 g/dL 6:45 AM CDT Hematocrit 33.2 (L) 35.5 - 04/07/2022 DTL 44.9 % 6:45 AM CDT Erythrocytes 3.44 (L) 3.92 - 04/07/2022 DTL 5.13 6:45 AM CDT x10(12)/L MCV 96.5 78.2 - 04/07/2022 DTL 97.9 fL 6:45 AM CDT RBC Distrib Width 14.7 12.2 - 04/07/2022 DTL 16.1 % 6:45 AM CDT Platelet Count 152 (L) 157 - 371 04/07/2022 DTL x10(9)/L 6:45 AM CDT Leukocytes 9.8 (H) 3.4 - 9.6 04/07/2022 DTL x10(9)/L 6:45 AM CDT Specimen Anatomical Collection Method Collection Time Receive d Time (Source) Location / / Volume Laterality Blood (Blood, 04/07/2022 6:26 AM 04/07/20 6:33 Venous) CDT AM CDT An Nicholas APRN, C.N.P., D.N.P., M.S.N. LAB BLOOD ADD-ON Performing Organization Address City/State/ZIP Code Phon e Number [facility] - [address] [place], [place] [address] [facility] [place] [address] Laboratories-[facility] [address] (ABNORMAL) Renal Function Panel (04/07/2022 6:26 AM CDT) Analysis Performed At Patho logist Time Signature Potassium, S 6.0 (CH) 3.6 - 5.2 04/07/2022 DTL mmol/L 7:17 AM CDT Sodium, S 129 (L) 135 - 145 04/07/2022 DTL mmol/L 7:17 AM CDT Chloride, S 91 (L) 98 - 107 04/07/2022 DTL mmol/L 7:17 AM CDT Bicarbonate, S 22 22 - 29 04/07/2022 DTL mmol/L 7:17 AM CDT Anion Gap 16 (H) 7 - 15 04/07/2022 DTL 7:17 AM CDT BUN (Blood Urea 34 (H) 6 - 21 04/07/2022 DTL Nitrogen), S mg/dL 7:17 AM CDT Creatinine 6.72 (H) 0.59 - 04/07/2022 DTL 1.04 mg/dL 7:17 AM CDT eGFR-Non <15 (L) >=60 04/07/2022 DTL Black/ mL/min/BSA 7:17 AM CDT Haitian Comment: ----ADDITIONAL INFORMATION---- Estimated GFR calculated using the 2009 CKD_EPI creatinine equation. eGFR-Black/ <15 (L) >=60 mL/min/BSA 2021 7:17 AM CDT DTL Comment: ----ADDITIONAL INFORMATION---- Estimated GFR calculated using the 2009 CKD_EPI creatinine equation. Calcium, Total, S 8.1 (L) 8.8 - 10.2 mg/dL 04/07/2022 7:17 AM CDT DTL Glucose, S 268 (H) 70 - 140 mg/dL 04/07/2022 7:17 AM CDT D TL Albumin, S 3.9 3.5 - 5.0 g/dL 04/07/2022 7:17 AM CDT D TL Phosphorus (Inorganic), S 5.5 (H) 2.5 - 4.5 mg/dL 04/07/20 7:17 AM CDT DTL Specimen Anatomical Collection Method Collection Time Receive d Time (Source) Location / / Volume Laterality Blood (Blood, 04/07/2022 6:26 AM 04/07/20 6:58 Venous) CDT AM CDT An Nicholas APRN C.N.P., D.N.P., M.S.N. LAB BLOOD ADD-ON Performing Organization Address City/[facility] Code Phon e Number [facility] - [address] [place] [address] [facility] (ABNORMAL) Phosphorus Inorganic (04/07/2022 6:26 AM CDT) P athologist Signature Phosphorus 5.5 (H) 2.5 - 4.5 04/07/2022 DTL (Inorganic), S mg/dL 7:12 AM CDT Specimen Anatomical Collection Method Collection Time Receive d Time (Source) Location / / Volume Laterality Blood (Blood, 04/07/2022 6:26 AM 04/07/20 6:57 Venous) CDT AM CDT Dunia Vargas M.D. LAB BLOOD ADD-ON Performing Organization Address City/State/[facility] Phon e Number [facility] - [address] [place] [address] [facility] (ABNORMAL) Magnesium (04/07/2022 6:26 AM CDT) P athologist Signature Magnesium, S 1.5 (L) 1.7 - 2.3 04/07/2022 DTL mg/dL 7:12 AM CDT Specimen Anatomical Collection Method Collection Time Receive d Time (Source) Location / / Volume Laterality Blood (Blood, 04/07/2022 6:26 AM 04/07/20 6:57 Venous) CDT AM CDT Dunia Vargas M.D. LAB BLOOD ADD-ON Performing Organization Address City/State/ZIP Code Phon e Number [facility] - [address] [place] [address] [facility] [place] [address] Laboratories-[facility] 200 [facility] (ABNORMAL) CBC with Differential, Blood (04/06/2022 11:49 PM CDT) Patholo gist Method Time Signature Hemoglobin 10.7 (L) 11.6 - 04/07/2022 METH 15.0 g/dL 12:04 AM CDT Hematocrit 33.4 (L) 35.5 - 04/07/2022 METH 44.9 % 12:04 AM CDT Erythrocytes 3.60 (L) 3.92 - 04/07/2022 METH 5.13 12:04 AM CDT x10(12)/L MCV 92.8 78.2 - 04/07/2022 METH 97.9 fL 12:04 AM CDT RBC Distrib Width 14.7 12.2 - 04/07/2022 METH 16.1 % 12:04 AM CDT Platelet Count 169 157 - 371 04/07/2022 METH x10(9)/L 12:04 AM CDT Leukocytes 7.6 3.4 - 9.6 04/07/2022 METH x10(9)/L 12:04 AM CDT Neutrophils 6.77 (H) 1.56 - 04/07/2022 METH 6.45 12:04 AM CDT x10(9)/L Lymphocytes 0.54 (L) 0.95 - 04/07/2022 METH 3.07 12:04 AM CDT x10(9)/L Monocytes 0.21 (L) 0.26 - 04/07/2022 METH 0.81 12:04 AM CDT x10(9)/L Eosinophils 0.03 0.03 - 04/07/2022 METH 0.48 12:04 AM CDT x10(9)/L Basophils <0.03 0.01 - 04/07/2022 METH 0.08 12:04 AM CDT x10(9)/L Specimen Anatomical Collection Method Collection Time Receive d Time (Source) Location / / Volume Laterality Blood (Blood, 04/06/2022 11:49 04/06/2022 Venous) PM CDT 11:52 PM CDT Dunia Vargas M.D. LAB BLOOD ADD-ON Performing Organization Address City/State/ZIP Code Phon e Number [facility] - [address] [place], [place] [address] [facility] [place] [address] Laboratories-[facility] [address] (ABNORMAL) Basic Metabolic Panel (04/06/2022 11:49 PM CDT) Analysis Performed At Patho logist Time Signature Potassium, P 4.7 3.6 - 5.2 04/07/2022 METH mmol/L 12:14 AM CDT Sodium, P 133 (L) 135 - 145 04/07/2022 M[facility] mmol/L 12:14 AM CDT Chloride, P 95 (L) 98 - 107 04/07/2022 [facility] mmol/L 12:14 AM CDT Bicarbonate, P 22 22 - 29 04/07/2022 [facility] mmol/L 12:14 AM CDT Anion Gap, P 16 (H) 7 - 15 04/07/2022 METH 12:14 AM CDT BUN (Blood Urea 32 (H) 6 - 21 04/07/2022 [facility] Nitrogen), P mg/dL 12:14 AM CDT Creatinine 6.04 (H) 0.59 - 04/07/2022 METH 1.04 mg/dL 12:14 AM CDT eGFR-Black/Afri <15 (L) >=60 04/07/2022 METH can Haitian mL/min/BSA 12:14 AM CDT Comment: ----ADDITIONAL INFORMATION---- Estimated GFR calculated using the 2009 CKD_EPI creatinine equation. eGFR Non-Black/ <15 (L) >=60 mL/min/BSA 04/07/2022 12:14 AM METH Haitian CDT Comment: ----ADDITIONAL INFORMATION---- Estimated GFR calculated using the 2009 CKD_EPI creatinine equation. Calcium, Total, P 8.5 (L) 8.8 - 10.2 mg/dL 04/07/2022 12:1 4 AM CDT METH Glucose, P 144 (H) 70 - 140 mg/dL 04/07/2022 12:14 AM CDT METH Specimen Anatomical Collection Method Collection Time Receive d Time (Source) Location / / Volume Laterality Blood (Blood, 04/06/2022 11:49 04/06/2022 Venous) PM CDT 11:52 PM CDT Dunia Vargas M.D. LAB BLOOD ADD-ON Performing Organization Address City/State/ZIP Code Phon e Number [facility] - [address] [place], [place] [address] [facility] [place] [address] Laboratories-[facility] [address] US Kidney Transplant Left with Doppler (04/06/2022 [...] vein patency: Patent. Ipsilateral common femoral artery: Marine sanders Additional comments: None. Dunia Vargas M.D. IMG US PROCEDURES DX Abdomen Portable Anterior Posterior [...] Surgical clips. Indwelling urinary bladder catheter. Radha Black M.D. IMG DIAGNOSTIC IMAGING PROCE DURES Renal Pathology (04/06/2022 9:47 PM CDT) Component [...] ? Glomerular Disease (non-alloimmune): No ? Recurrent [place] disease: No Specimen (Source) Anatomical Collection Method Collection Time Re ceived Time Location / / Volume Laterality Biopsy (Kidney, 04/06/2022 9:47 PM Allograft) CDT Narrative This result has an attachment that is no t available. Nehemias Felipe M.D. LAB PATH RENAL ORDERABLES Performing Organization Address City/State/[facility] Code Phon e Number [facility] - [address] [place] [address] [facility] [place] [address] [facility] 200 [facility] HLA CROSSMATCH SUMMARY REPORT (04/06/2022 5:10 PM CDT) Specimen (Source) Anatomical Collection Method Collection Time Re ceived Time Location / / Volume Laterality 04/06/2022 5:10 PM CDT Narrative 04/17/2022 2:16 PM CDT This result has an attachment that is no t available. Ordered by an unspecified provider. Default Authenticator [facility] LAB HLA ORDERABLES HLA Class II Typing by Low Resolution, Donor Testing (04/06/2022 5:10 PM CDT) [facility] gist Method Time Signature Class II LR [id number] 04/14/2022 DBB8 Donor 4:21 PM CDT DRB1 - 1 DR4 Not 04/14/2022 DBB8 Equivalent Applicable 4:21 PM CDT DRB1 - 2 DR4 Not 04/14/2022 DBB[facility] Equivalent Applicable 4:21 PM CDT DRB1 - 1 DRB1*04:01 Not 04/14/2022 DBB8 Molecular Applicable 4:21 PM CDT DRB1 - 2 DRB1*04:04 Not 04/14/2022 DBB8 Molecular Applicable 4:21 PM CDT BLT329 - 1 DR53 Not 04/14/2022 D[facility]8 Equivalent Applicable 4:21 PM CDT [id number] - 2 DR53 Not 04/14/2022 [facility] Equivalent Applicable 4:21 PM CDT [id number] - 1 DRB4*01:03 Not 04/14/2022 DBB8 Molecular Applicable 4:21 PM CDT ZQG195 - 2 DRB4*01:03 Not 04/14/2022 DBB8 Molecular [...] and its performa nce characteristics determined by [facility] in a manner co nsistent with CLIA requirements. This test has not been casper ared or approved by the U.S. Food and Drug Administration. CLIA: [id number] ??CLIA Help Desk Support: SHANTA LOYD MD,PhD Specimen Anatomical Collection Method Collection Time Receive d Time (Source) Location / / Volume Laterality Blood 04/06/2022 5:10 PM 5:10 CDT PM CDT Radha Black M.D. LAB HLA ORDERABLES Performing Organization Address City/State/ZIP Code Phon e Number [facility] - [address] [place] [address] [facility] [place] [place] [address] Laboratories-[facility] 200 [facility] HLA Class I Typing by Low Resolution, Donor Testing (04/06/2022 5:10 PM CDT) [facility] Method Time Signature Class I LR [id number] 04/14/2022 DBB8 Donor 4:20 PM CDT A [...] and its performa nce characteristics determined by [facility] in a manner co nsistent with CLIA requirements. This test has not been casper ared or approved by the U.S. Food and Drug Administration. CLIA: [id number] ??CLIA Help Desk Support: SHANTA LOYD MD,PhD Specimen Anatomical Collection Method Collection Time Receive d Time (Source) Location / / Volume Laterality Blood 04/06/2022 5:10 PM 5:10 CDT PM CDT Radha Black M.D. LAB HLA ORDERABLES Performing Organization Address City/State/ZIP Code Phon e Number [facility] - [address] [place] [address] [facility] [place] [place] [address] Laboratories-[facility] 200 [facility] HLA Flow Cytometric Crossmatch, Varies (04/06/2022 5:10 PM CDT) [facility] Method Time Signature FXM Crossmatch [id number] 04/06/2022 DBB8 Donor 8:27 PM CDT FXM [...] FXM Current B-Cell Result Negative Not Applicable 2 2:09 PM CDT DBB8 FXM Current B-Cell [...] and its performa nce characteristics determined by [facility] in a manner co nsistent with CLIA requirements. This test has not been casper ared or approved by the U.S. Food and Drug Administration. CLIA: [id number] ??CLIA Help Desk Support: SHANTA LOYD MD,PhD Specimen Anatomical Collection Method Collection Time Receive d Time (Source) Location / / Volume Laterality Blood 04/06/2022 5:10 PM 2 5:10 CDT PM CDT Narrative [facility] - 04/10/2022 2:09 PM CDT Specimen Information: Specimen ID: [id number] Specimen Type: Blood Specimen Collection Start Date: 04/06/20 ??5:10 PM Specimen Received Date: 04/06/2022 ??5:1 0 PM Specimen ID: [id number] Specimen Type: Blood Specimen Collection Start Date: 04/06/20 ??5:10 PM Specimen Received Date: 04/06/2022 ??5:1 0 PM Specimen ID: [id number] Specimen Type: Blood Specimen Collection Start Date: 04/06/20 ??5:10 PM Specimen Received Date: 04/06/2022 ??5:1 0 PM Radha Black M.D. LAB HLA ORDERABLES Performing Organization Address City/State/ZIP Code Phon e Number [facility] - [address] [place], [place] [address] [facility] [place] [place] [address] Laboratories-[facility] [address] DX Chest Portable 1 View (04/06/2022 4:35 [...] D.N.P., M.S.N. IMG DIAGN OSTIC IMAGING PROCEDURES Wang/Kid 5cc Storage, B (04/06/2022 4:30 PM CDT) Analysis Performed At Patho logist Time Signature Storage, Red Collected DEFAULT 04/06/2022 HSS 4:30 PM CDT Storage, ACD Collected DEFAULT 04/06/2022 HSS 4:30 PM CDT Specimen Anatomical Collection Method Collection Time Receive d Time (Source) Location / / Volume Laterality Blood (Blood, 04/06/2022 4:30 PM 04/06/20 4:30 Venous) CDT PM CDT Narrative [facility] - [facility] - 04/06/2022 4:30 PM CDT Specimen Information: Specimen ID: [id number] Specimen Type: Blood Specimen Collection Start Date: 04/06/20 ??4:30 PM Specimen Received Date: 04/06/2022 ??4:3 0 PM Specimen ID: [id number] Specimen Collection Start Date: 04/06/20 ??4:30 PM Specimen Received Date: 04/06/2022 ??4:3 0 PM Radha Black M.D. LAB BLOOD ADD-ON Performing Organization Address City/[facility] Phon e Number [address] [place] [address] Laboratories-[address] HIV-1/-2 Ag and Ab Screen, Plasma (04/06/2022 4:30 PM CDT) P athologist Signature HIV-1/-2 Ag Negative Negative 04/06/2022 [facility] and Ab Screen, 9:15 PM CDT P [...] - BLOOD ORD ERABLES Performing Organization Address City/[facility]/ZIP [facility] Phon e Number [facility] [address] [place], [place] [address] [facility] [place] [address] Laboratory Medicine and Pathology [address] [place] Type and Screen (with reflex Antibody ID) (04/06/2022 4:30 PM CDT) [email or web address] Method Time Signature ABORh O Pos Not 04/06/2022 ETRM applicable 5:01 PM CDT Antibody Negative Negative 04/06/2022 ETRM Screen 5:17 PM CDT Type & Screen 04/09/2022 04/06/2022 ETRM Expiration 23:59 5:01 PM CDT Testing Mary DEFAULT 04/06/2022 ETRM Location 4:39 PM CDT Specimen Anatomical Collection Method Collection Time Receive d Time (Source) Location / / Volume Laterality Blood (Arm, 04/06/2022 4:30 PM 2 4:39 Left) CDT PM CDT Radha Black M.D. LAB BLOOD BANK TEST ORDERABL ES Performing Organization Address City/State/ZIP Code Phon e Number [facility] - [address] [place] [address] [facility] [place] [address] Laboratories-[address] HLA Class I/II Combined cPRA, S (04/06/2022 4:29 PM CDT) [facility] Apptimate Method Time Signature Class I/II 50 Not [...] frequencies published by [employer] listed here: [email or web address]://[email or web address] CLIA: [id number] ??CLIA Help Desk Support: SHANTA LOYD MD,PhD Combined cPRA Specificities see below 04/10/2022 8 :06 AM CDT DBB8 Comment: A:32 B:38 49 51 78 DQ:2 Specimen Anatomical Collection Method Collection Time Receive d Time (Source) Location / / Volume Laterality Blood 04/06/2022 4:29 PM 2 7:41 CDT AM CDT Radha Black M.D. LAB HLA ORDERABLES Performing Organization Address [facility] Phon e Number [facility] - [address] [place], [place] [address] [facility] [place] [place] [address] Laboratories-[facility] 200 [facility] HLA Class II SAB Antibody Screen (04/06/2022 4:29 PM CDT) [facility] Method Time Signature Class II SAB Positive Not Applicable 04/10/2022 DBB8 Overall Result 8:00 AM CDT SAB DRB1 NONE 04/10/2022 DBB8 Specificity 8:00 AM CDT SAB [id number] NONE 04/10/2022 DBB8 Specificity 8:00 AM CDT SAB DQB1 see below 04/10/2022 DBB8 Specificity 8:00 AM CDT Comment: 2(A*05:01;B*02:01)[[id number]] Format: Serologic Eq.(DQA1;DQB1 Mol. All jorge)[Normalized MFI] NOTE: Data is displayed in descending or kristi by Mean Fluorescence Intensity (MFI). ??Serologic equivalents can be di splayed multiple times for different molecular alleles. SAB DPB1 Specificity see below 04/10/2022 8:00 AM CDT DBB8 Comment: 6(A*01:03;B*06:01)[425] Format: Serologic Eq.(DPA1;DPB1 Mol. All jorge)[Normalized MFI] NOTE: Data is displayed in descending or kristi by Mean Fluorescence Intensity (MFI). ??Serologic equivalents can be di splayed multiple times for different molecular alleles. ----ADDITIONAL INFORMATION---- Method: Luminex Flow Cytometry CLIA: [id number] ??CLIA Help Desk Support: SHANTA LOYD MD,PhD Specimen Anatomical Collection Method Collection Time Receive d Time (Source) Location / / Volume Laterality Blood (Blood, 04/06/2022 4:29 PM 04/07/20 7:41 Venous) CDT AM CDT Radha Black M.D. LAB HLA ORDERABLES Performing Organization Address [facility] Phon e Number [facility] - [address] [place], [place] [address] [facility] [place] [place] [place] [address] [facility] [address] HLA Class I SAB Antibody Screen (04/06/2022 4:29 PM CDT) [facility] Method Time Signature Class I SAB Positive [...] below 04/10/2022 7:58 AM CDT [id number] Comment: 51(51:01)[6580], 49(49:01)[3358], 51(51: 02)[2853], 78(78:01)[245], 38(38:01)[2150], 59(59: 01)[1992], 63(15:16)[1970], 75(15:02)[1784], 52(52: 01)[1776], 77(15:13)[1535], 53(53:01)[1357], 57(57: 03)[1326], 57(57:01)[1269], 58(58:01)[986], 67(67:0 1)[703], 75(15:11)[524] Format: Serologic Eq.(B Mol. Allele)[Nor malized MFI] NOTE: Data is displayed in descending or kristi by Mean Fluorescence Intensity (MFI). ??Serologic equivalents can be di splayed multiple times for different molecular alleles. SAB C Specificity NONE 04/10/2022 7:58 AM CDT [id number] Comment: ----ADDITIONAL INFORMATION---- Method: Luminex Flow Cytometry CLIA: [id number] ??CLIA Help Desk Support: SHANTA LOYD MD,PhD Specimen Anatomical Collection Method Collection Time Receive d Time (Source) Location / / Volume Laterality Blood (Blood, 04/06/2022 4:29 PM 04/07/20 22 7:41 Venous) CDT AM CDT Radha Black M.D. LAB HLA ORDERABLES Performing Organization Address City/State/[facility] Code Phon e Number [facility] - [address] [place], [place] [address] [facility] [place] [place] [place] [address] [facility] [address] (ABNORMAL) Troponin T, 5th Generation (04/06/2022 4:29 PM CDT) athologist Signature Troponin T, 5th 58 (H) <=10 ng/L 04/06/2022 DT gen 5:17 PM CDT Specimen Anatomical Collection Method Collection Time Receive d Time (Source) Location / / Volume Laterality Blood (Blood, 04/06/2022 4:29 PM 04/06/20 22 5:01 Venous) CDT PM CDT Radha Black M.D. LAB BLOOD ADD-ON Performing Organization Address City/State/[facility] Code Phon e Number [facility] - [address] [place], [place] [address] [facility] [place] [address] [facility] [address] Bilirubin, Total (04/06/2022 4:29 PM CDT) athologist Signature Bilirubin, 0.3 <=1.2 mg/dL 04/06/2022 METH Total, P 4:55 PM CDT Specimen Anatomical Collection Method Collection Time Receive d Time (Source) Location / / Volume Laterality Blood (Blood, 04/06/2022 4:29 PM 04/06/20 22 4:40 Venous) CDT PM CDT Radha Black M.D. LAB BLOOD ADD-ON Performing Organization Address City/State/ZIP Code Phon e Number [facility] - [address] [place], [place] [address] [facility] [place] [address] Bilirubin, Direct (04/06/2022 4:29 PM CDT) P athologist Signature Bilirubin, <0.2 0.0 - 0.3 04/06/2022 DTL Direct, P mg/dL 5:16 PM CDT Specimen Anatomical Collection Method Collection Time Receive d Time (Source) Location / / Volume Laterality Blood (Blood, 04/06/2022 4:29 PM 04/06/20 5:01 Venous) CDT PM CDT Radha Black M.D. LAB BLOOD ADD-ON Performing Organization Address City/[facility] Phon e Number [address] [address] [facility] [place] [address] (ABNORMAL) Dipstick, Urine (04/06/2022 4:19 PM CDT) Patholo gist Method Time Signature Hemoglobin, Large (A) Negative 04/06/2022 DTL QL, U 4:36 PM CDT Leukocyte Large (A) Negative 04/06/2022 DTL Esterase, U 4:36 PM CDT Nitrite, U Negative Negative 04/06/2022 DTL 4:36 PM CDT Ketone, U Negative Negative 04/06/2022 DTL mg/dL 4:36 PM CDT Glucose, U Negative Negative 04/06/2022 DTL mg/dL 4:36 PM CDT Specimen Anatomical Collection Method Collection Time Receive d Time (Source) Location / / Volume Laterality Urine 04/06/2022 4:19 PM 4:28 CDT PM CDT Radha Black M.D. LAB URINE ORDERABLES Performing Organization Address City/[facility]/ZIP [facility] Phon e Number [address] [address] [place] [address] Osmolality, Urine (04/06/2022 4:19 PM CDT) P athologist Signature Osmolality, U 316 150 - 1150 04/06/2022 DTL mOsm/kg 5:12 PM CDT Specimen Anatomical Collection Method Collection Time Receive d Time (Source) Location / / Volume Laterality Urine 04/06/2022 4:19 PM 2 4:28 CDT PM CDT Radha Black M.D. LAB URINE ORDERABLES Performing Organization Address City/[facility] Phon e Number [facility] - [address] [place], [place] [address] [facility] [address] (ABNORMAL) pH, Random, Urine (04/06/2022 4:19 PM CDT) P athologist Signature pH, Random, U 8.1 (H) 4.5 - 8.0 04/06/2022 DTL 5:07 PM CDT Specimen Anatomical Collection Method Collection Time Receive d Time (Source) Location / / Volume Laterality Urine 04/06/2022 4:19 PM 2 4:28 CDT PM CDT Radha Black M.D. LAB URINE ORDERABLES Performing Organization Address City/[facility] Phon e Number [facility] - [address] [place], [place] [address] [place] [address] [place], [place] [address] [place] [address] (ABNORMAL) Microscopic Manual (04/06/2022 4:19 PM CDT) P athologist Signature Microscopy Abnormal 04/06/2022 DTL 5:30 PM CDT RBC 31-40 (A) <3 /hpf 04/06/2022 DTL 5:30 PM CDT WBC 11-20 (A) /hpf 04/06/2022 DTL 5:30 PM CDT Comment: ----REFERENCE VALUE---- 1-3 ??(Males) 1-10 (Females) Squamous Epithelial Cells, U 11-20 /hpf 04/06/2022 5:30 PM CDT DTL Bacteria Present (A) 04/06/2022 5:30 PM CDT DTL Specimen Anatomical Collection Method Collection Time Receive d Time (Source) Location / / Volume Laterality Urine 04/06/2022 4:19 PM 2 4:28 CDT PM CDT Radha Black M.D. LAB URINE ORDERABLES Performing Organization Address [facility] Phon e Number [facility] - [address] [place] [address] SARS Coronavirus 2, PCR Rapid, V Asymptomatic (04/06/2022 4:19 PM CDT) Patholo gist Method Time Signature SARS CoV-2, Undetected Undetected 04/06/2022 [facility] PCR, Rapid, V 5:32 PM CDT Comment: ----ADDITIONAL INFORMATION---- This RT-PCR test was performed using the Krupa SARS-CoV-2 and Influenza A/B Reagent assay from [employer], which has received Emergency Use Authori zation(EUA) by the U.S. Food and Drug Administration . Fact sheets for this Emergency Use Autho rization (EUA) assay can be found at the following link s: For Healthcare Providers: https://www.fda.gov/media/712259/downloa d For Patients: https://www.fda.gov/media/610749/downloa d SARS Coronavirus 2, Source, Rapid Swab, Nasopharynx 04/06/2022 4:51 PM CDT STMA Specimen Anatomical Collection Method Collection Time Receive d Time (Source) Location / / Volume Laterality Varies 04/06/2022 4:19 PM 4:51 (Nasopharynx) CDT PM CDT An Nicholas APRN C.N.P., D.N.P., M.S.N. LAB MICRO BIOLOGY - GENERAL ORDERABLES Performing Organization Address City/[facility]/ZIP Code Phon e Number [facility] - [address] [place], [place] [address] [facility] STMA [place], [place] [address] [place] [address] (ABNORMAL) Urinalysis with Microscopic: Urine, Midstream (04/06/2022 4:19 PM CDT) Analysis Performed At Patho logist Time Signature Source Urine, Urine, 04/06/2022 DTL Midstream 4:28 PM CDT Color, U Yellow 04/06/2022 DTL 4:28 PM CDT Comment: REVISED RESULTS Clarity, U Cloudy (A) 04/06/2022 4:28 PM CDT DTL Protein, U 458 (H) <26 mg/dL 04/06/2022 5:57 PM CDT DTL Protein/Osmolality 14.49 (H) <0.42 ratio 04/06/2022 5:57 PM CDT DTL Predicted 24 Hr Protein 7581 mg/24 h 04/06/2022 5:57 PM CDT DTL Predicted Range 1873-77821 mg/24 h 04/06/2022 5:57 PM CDT DTL Comment Micro done on <10 04/06/2022 7:47 PM CDT DTL mL Specimen Anatomical Collection Method Collection Time Receive d Time (Source) Location / / Volume Laterality Urine (Urine, 04/06/2022 4:19 PM 04/06/20 4:28 Midstream) CDT PM CDT Radha Black M.D. LAB URINE ORDERABLES Performing Organization Address City/[facility]/ZIP Code Phon e Number [facility] - [address] [place], [place] [address] [place] [address] [place] [address] [place] [address] [facility] (ABNORMAL) Gram Stain, Urine (04/06/2022 4:19 PM CDT) [facility] Method Time Signature Source Urine, Urine, 04/06/2022 [...] M.D. LAB URINE ORDERABLES Performing Organization Address City/[facility]/ZIP [facility] Phon e Number [facility] - [address] [place], [place] [address] [facility] [address] [place] [address] [facility] Bacterial Culture, Aerobic + Susc, Urine (04/06/2022 4:19 PM CDT) Component Value Ref Test Analysis Performed At [facility] Method Time Signature Urine Urogenital microbiota, susceptibilities not 04/08/2022 DT Culture performed per laboratory criteria. 11:16 AM CDT Specimen Anatomical Collection Method Collection Time Receive d Time (Source) Location / / Volume Laterality Urine (Urine, 04/06/2022 4:19 PM 04/06/20 22 5:44 Midstream) CDT PM CDT Comment: Specimen Source Site: Urine Radha Black M.D. LAB MICROBIOLOGY - GENERAL O RDERABLES Performing Organization Address City/[facility] Phon e Number [facility] - [address] [place] [address] [address] [place] [address] Laboratories-[facility] [address] [facility] HCV RNA Detect / Quant, Serum (04/06/2022 3:28 PM CDT) [facility] Method [place] Signature HCV RNA Undetected Undetected 04/06/2022 [facility] Detect/Quant, IU/mL 10:10 PM S CDT Comment: Result in log IU/mL is Undetected. ----ADDITIONAL INFORMATION---- The quantification range of this assay i s 15 to 100,000,000 IU/mL (1.18 log to 8.00 log IU/mL). Testing was performe d using the barrett HCV test ([employer] with the barrett 6800 System. Specimen Anatomical Collection Method Collection Time Receive d Time (Source) Location / / Volume Laterality Blood (Blood, 04/06/2022 3:28 PM 04/06/20 22 6:02 Venous) CDT PM CDT Radha Black M.D. LAB MICROBIOLOGY - BLOOD ORD ERABLES Performing Organization Address City/[facility]/ZIP [facility] Phon e Number [facility] [address] [place], [place] [address] [facility] [place] [address] Laboratory Medicine and Pathology [address] [place] HCV Ab Scrn w/Reflex to HCV PCR, Serum (04/06/2022 3:28 PM CDT) athologist Signature HCV Ab Screen, Negative Negative 04/06/2022 [facility] S 9:27 PM CDT Comment: Hpriha-pl-vgtnvr ratio is <1.00 . Specimen (Source) Anatomical Collection Method Collection Time Re ceived Time Location / / Volume Laterality Blood (Blood, 04/06/2022 3:28 04/06/2022 5:57 Peripheral Draw) PM CDT PM CDT Radha Black M.D. LAB MICROBIOLOGY - BLOOD ORD ERABLES Performing Organization Address [facility] Phon e Number [facility] [address] [place] [address] [place] [address] Laboratory Medicine and Pathology [address] [place] [address] Dr. [place] HBc Total Ab Scrn, S (04/06/2022 3:28 PM CDT) athologist Signature HBc Total Ab Negative Negative 04/06/2022 [facility] Scrn, S 9:26 PM CDT Specimen Anatomical Collection Method Collection Time Receive d Time (Source) Location / / Volume Laterality Blood (Blood, 04/06/2022 3:28 PM 04/06/20 5:57 Venous) CDT PM CDT Radha Black M.D. LAB MICROBIOLOGY - BLOOD ORD EDD Performing Organization Address City/[facility] Phon e Number [facility] [address] [place] [address] [place] [address] Laboratory Medicine and Pathology [address] [place] [address] Dr. [place] HBs Antibody Scrn, S (04/06/2022 3:28 PM CDT) athologist Signature HBs Antibody Negative 04/06/2022 [facility] Scrn, S 9:27 PM CDT Comment: Patient is presumed to be not immune to infection with HBV. ----REFERENCE VALUE---- Unvaccinated: Negative Vaccinated: Positive HBs Antibody, Quantitative, S <5.0 mIU/mL 04/06/2022 9:27 PM CDT [facility] Comment: ----REFERENCE VALUE---- Unvaccinated: <5.0 Vaccinated: >=12.0 Specimen Anatomical Collection Method Collection Time Receive d Time (Source) Location / / Volume Laterality Blood (Blood, 04/06/2022 3:28 PM 04/06/20 22 5:57 Venous) CDT PM CDT Radha Black M.D. LAB MICROBIOLOGY - BLOOD ORD ERABLES Performing Organization Address City/State/ZIP Code Phon e Number [facility] [address] [place], [place] [address] [facility] [place] [address] Laboratory Medicine and Pathology [address] [place] [address] Dr. [place] HBs Antigen Scrn, S (04/06/2022 3:28 PM CDT) P athologist Signature HBs Antigen Negative Negative 04/06/2022 [facility] Scrn, S 9:10 PM CDT Specimen Anatomical Collection Method Collection Time Receive d Time (Source) Location / / Volume Laterality Blood (Blood, 04/06/2022 3:28 PM 04/06/20 22 5:57 Venous) CDT PM CDT Radha Black M.D. LAB MICROBIOLOGY - BLOOD ORD EDD Performing Organization Address [facility] Phon e Number [facility] [address] [place] [address] [place] [address]. [place] [address] Laboratory Medicine and Pathology [address] [place] [address] Dr. [place] (ABNORMAL) Prothrombin Time (PT) (04/06/2022 3:28 PM CDT) Patholo gist Method Time Signature Prothrombin 21.9 (H) 9.4 - 12.5 04/06/2022 METH Time, P sec 3:48 PM CDT INR 2.0 0.9 - 1.1 04/06/2022 METH 3:48 PM CDT Comment: ----ADDITIONAL INFORMATION---- Standard intensity warfarin therapeutic range: 2.0 to 3.0 ?? High intensity warfarin therapeutic rang e: 2.5 to 3.5 Specimen Anatomical Collection Method Collection Time Receive d Time (Source) Location / / Volume Laterality Blood (Blood, 04/06/2022 3:28 PM 04/06/20 22 3:42 Venous) CDT PM CDT Authorizing Provider Result Anand Black M.D. LAB BLOOD ADD-ON Performing Organization Address City/State/ZIP Code Phon e Number [facility] - [address] [place] [place] [address] APTT (Activated Partial Thromboplastin Time) (04/06/2022 3:28 PM CDT) P athologist Signature Activated 33 25 - 37 sec 04/06/2022 METH Partial 3:51 PM CDT Thrombopl Time, P Specimen Anatomical Collection Method Collection Time Receive d Time (Source) Location / / Volume Laterality Blood (Blood, 04/06/2022 3:28 PM 04/06/20 22 3:42 Venous) CDT PM CDT Radha Black M.D. LAB BLOOD ADD-ON Performing Organization Address City/[facility]/ZIP Code Phon e Number [facility] - [address] [place] [address] Phosphorus Inorganic (04/06/2022 3:28 PM CDT) athologist Signature Phosphorus 4.3 2.5 - 4.5 04/06/2022 DTL (Inorganic), S mg/dL 4:22 PM CDT Specimen Anatomical Collection Method Collection Time Receive d Time (Source) Location / / Volume Laterality Blood (Blood, 04/06/2022 3:28 PM 04/06/20 3:56 Venous) CDT PM CDT Radha Black M.D. LAB BLOOD ADD-ON Performing Organization Address City/State/ZIP Code Phon e Number [facility] - [address] [place], [place] [phone] [place] [address] (ABNORMAL) Comprehensive Metabolic Panel (04/06/2022 3:28 PM CDT) Patholo gist Method Time Signature Potassium, S 5.6 (H) 3.6 - 5.2 04/06/2022 DTL mmol/L 4:22 PM CDT Sodium, S 136 135 - 145 04/06/2022 DTL mmol/L 4:22 PM CDT Chloride, S 96 (L) 98 - 107 04/06/2022 DTL mmol/L 4:22 PM CDT Bicarbonate, S 21 (L) 22 - 29 04/06/2022 DTL mmol/L 4:22 PM CDT Anion Gap 19 (H) 7 - 15 04/06/2022 DTL 4:22 PM CDT BUN (Blood Urea 64 (H) 6 - 21 04/06/2022 DTL Nitrogen), S mg/dL 4:22 PM CDT Creatinine 10.32 (H) 0.59 - 04/06/2022 DTL 1.04 mg/dL 4:22 PM CDT eGFR-Non <15 (L) >=60 04/06/2022 DTL Black/ mL/min/BSA 4:22 PM CDT Haitian Comment: ----ADDITIONAL INFORMATION---- Estimated GFR calculated using the 2009 CKD_EPI creatinine equation. eGFR-Black/ <15 (L) >=60 mL/min/BSA 2021 4:22 PM CDT DTL Comment: ----ADDITIONAL INFORMATION---- Estimated GFR calculated using the 2009 CKD_EPI creatinine equation. Calcium, Total, S 8.8 8.8 - 10.2 mg/dL 04/06/2022 4:22 PM CDT DTL Glucose, S 84 70 - 140 mg/dL 04/06/2022 4:22 PM CDT D TL Protein, Total, S 6.4 6.3 - 7.9 g/dL 04/06/2022 4:22 P M CDT DTL Albumin, S 4.5 3.5 - 5.0 g/dL 04/06/2022 4:22 PM CDT D TL Aspartate Aminotransferase (AST), 21 8 - 43 U/L 04/06 4:22 PM CDT DTL S Alkaline Phosphatase, S 101 35 - 104 U/L 04/06/2022 4: 22 PM CDT DTL Alanine Aminotransferase (ALT), S 11 7 - 45 U/L 04/06 4:22 PM CDT DTL Bilirubin, Total, S 0.3 <=1.2 mg/dL 04/06/2022 4:22 PM CDT DTL Specimen Anatomical Collection Method Collection Time Receive d Time (Source) Location / / Volume Laterality Blood (Blood, 04/06/2022 3:28 PM 04/06/20 3:56 Venous) CDT PM CDT Radha Black M.D. LAB BLOOD ADD-ON Performing Organization Address City/State/ZIP Code Phon e Number [facility] - [address] [place], [place] [address] [facility] [place] [address] Laboratories-[facility] [address] [facility] (ABNORMAL) CBC with Differential, Blood (04/06/2022 3:27 PM CDT) [facility] Method Time Signature Hemoglobin 10.3 (L) 11.6 - 04/06/2022 METH 15.0 g/dL 3:44 PM CDT Hematocrit 32.9 (L) 35.5 - 04/06/2022 METH 44.9 % 3:44 PM CDT Erythrocytes 3.55 (L) 3.92 - 04/06/2022 METH 5.13 3:44 PM CDT x10(12)/L MCV 92.7 78.2 - 04/06/2022 METH 97.9 fL 3:44 PM CDT RBC Distrib Width 14.8 12.2 - 04/06/2022 METH 16.1 % 3:44 PM CDT Platelet Count 148 (L) 157 - 371 04/06/2022 METH x10(9)/L 3:44 PM CDT Leukocytes 5.8 3.4 - 9.6 04/06/2022 METH x10(9)/L 3:44 PM CDT Neutrophils 4.05 1.56 - 04/06/2022 METH 6.45 3:44 PM CDT x10(9)/L Lymphocytes 0.96 0.95 - 04/06/2022 METH 3.07 3:44 PM CDT x10(9)/L Monocytes 0.63 0.26 - 04/06/2022 METH 0.81 3:44 PM CDT x10(9)/L Eosinophils 0.10 0.03 - 04/06/2022 METH 0.48 3:44 PM CDT x10(9)/L Basophils <0.03 0.01 - 04/06/2022 METH 0.08 3:44 PM CDT x10(9)/L Specimen Anatomical Collection Method Collection Time Receive d Time (Source) Location / / Volume Laterality Blood (Blood, 04/06/2022 3:27 PM 04/06/20 22 3:42 Venous) CDT PM CDT Radha Black M.D. LAB BLOOD ADD-ON Performing Organization Address City/State/ZIP Code Phon e Number [facility] - [address] [place], [place] [address] [facility] [place] [address] Laboratories-[facility] [address] ECG 12 Lead (04/06/2022 3:09 PM CDT) P athologist Signature Ventricular Rate 74 BPM MUSE ECG/Min HI Interval 174 ms MUSE QRSD Interval 82 ms MUSE QT Interval 400 ms MUSE QTC Interval 444 ms MUSE P [place] 54 degrees MUSE R [place] -14 degrees MUSE T Wave [place] 39 degrees MUSE Specimen Anatomical Collection Method Collection Time Receive d Time (Source) Location / / Volume Laterality 04/06/2022 3:09 PM 2 3:13 CDT PM CDT Impressions MUSE - 04/06/2022 3:13 PM CDT Normal sinus rhythm Low voltage QRS Nonspecific ST abnormality When compared with ECG of 07-APR-2021 09 :19, No significant change was found Reviewed by REI Cornejo Narrative This result has an attachment that is no t available. Procedure Note Mina Sharpe M.D., Ph.D. - 04/06/20 22 IMPRESSION: Normal sinus rhythm Low voltage QRS Nonspecific ST abnormality When compared with ECG of 07-APR-2021 09 :19, No significant change was found Reviewed by REI Cornejo Radha Black M.D. ECG ORDERABLES Performing Organization Address City/State/ZIP Code Phon e Number MUSE MUSE NA documented in this encounter Visit Diagnoses Diagnosis Transplant Renal (HCC) - Primary Chronic Kidney Disease Chronic Kidney Disease Stage 5 Glomerula r Filtration Rate Less Than 15 (HCC) Hyperlipidemia Depression Major One Episode Full Remiss ion (HCC) Hypertension And Chronic Kidney Disease Stage 1 To 4 Anticoagulant Therapy Hyperkalemia documented in this encounter Admitting Diagnoses Diagnosis Chronic Kidney Disease NOS Chronic Kidney Disease Stage 5 Glomerula r Filtration Rate Less Than 15 (HCC) documented in this encounter Administered Medications Inactive Administered Medications - up to 3 most recent administrations Medication Order MAR Action Action Date Dose Rate Site acetaminophen injection 1,000 New Bag 04/07/2022 12:02 AM 1,000 mg 400 mL/hr mg CDT 1,000 mg, intravenous, at 400 mL/hr, Administer over 15 Minutes, Once as needed, other, If patient has not received in previous 6 hours, Starting on Elizabeth 04/06/22 at 2304, For 1 dose, PACU (only), Oral unless RASS less than -1 or nausea/vomiting. Do not use if given in last 6 hours, Restriction Criteria (Pharmacy will review and approve if criteria met): Unable to take or tolerate medications administered via the enteral route or orally (not just NPO) acetaminophen tablet 650 mg (TYLENOL) Given 04/09/2022 12:26 PM CDT 650 mg 650 mg, oral, Every 6 hours, First dose on Sun04/07/22 at 0600, (not to exceed 4 grams in 24 hours) Given 04/09/2022 5:17 AM CDT 650 mg Given 04/09/2022 12:10 AM CDT 650 mg albuterol nebulizer solution 5 mg Given 04/07/2022 8:04 AM CDT 5 mg 5 mg, nebulization, Every 5 min, First dose on Sun04/07/22 at 0745, For 3 doses Given 04/07/2022 8:02 AM CDT 5 mg Given 04/07/2022 7:56 AM CDT 5 mg basiliximab 20 mg in NaCl 0.9% IVPB (SIM ULECT) 20 mg, intravenous, at 110 mL/hr, Admini ster over 30 Minutes, Once, On 04/10/22 at 1000, For 1 dose, Administer 4 days after transplan t belladonna alkaloids-opium 16.2-30 mg goff ppository 1 suppository (B&O SUPPRETTS) 1 suppository, rectal, Every 6 hours PRN , bladder spasms, Starting on Sun04/07/22 at 0304 bisacodyL suppository 10 mg (DULCOLAX) 10 mg, rectal, Daily PRN, constipation, Starting on Sun04/07/22 at 0304, Ordered sequence of administration: polyethylene glycol, then bisacodyl until BM achieved. calcium gluc in NaCl, iso-osm IVPB 2 g New Bag 04/07/2022 8:46 AM CDT 2 g 400 mL/hr 2 g, intravenous, at 400 mL/hr, Administer over 15 Minutes, Once, On Sun04/07/22 at 0745, For 1 dose, For peripheral IV administration (avoid antecubital fossa, dorsum of hand or wrist if possible). MD porter sample case to directly observe IV site for possible extravasation for the duration of infusion. ceFAZolin in dextrose (iso-os) IVPB 2 New Bag 04/07/2022 10:12 PM CDT 2 g 200 mL/hr g (ANCEF) 2 g, intravenous, at 200 mL/hr, Administer over 30 Minutes, Every 8 hours, First dose on Sun04/07/22 at 0600, For 24 hours, Start at 8 hours after last intraoperative dose., Drug Monitoring Program: Pharmacist to adjust medication dosing based on indication and drug clearance factors., Indications: Prophylaxis, surgical New Bag 04/07/2022 2:33 PM CDT 2 g 200 mL/hr New Bag 04/07/2022 5:24 AM CDT 2 g 200 mL/hr D10W bolus bolus New Bag 04/07/2022 8:13 AM CDT 83 mL/hr 83 mL/hr 83 mL/hr, intravenous, Administer over 3 Hours, Once, On Sun04/07/22 at 0745, For 1 dose, Start dextrose infusion prior to administering insulin. dextrose 50 % injection 12.5 g Given 04/07/2022 8:07 AM CDT 12.5 g 12.5 g, intravenous, Once, On Sun04/07/22 at 0745, For 1 dose, Administer D50W immediately before insulin is administered fentaNYL injection 25 mcg (SUBLIMAZE) Given 04/06/2022 11:55 PM CDT 25 mcg 25 mcg, intravenous, Every 2 min PRN, For pain 4 or greater (maximum 100 mcg). If max dose of Fentanyl is reached and if pain is greater than 4, discontinue Fentanyl: give Hydromorphone, Starting on Elizabeth 04/06/22 at 2316, PACU (only) Given 04/06/2022 11:30 PM CDT 25 mcg Given 04/06/2022 11:22 PM CDT 25 mcg furosemide injection 40 mg (LASIX) Given 04/07/2022 7:57 AM CDT 40 mg 40 mg, intravenous, Once, On Sun04/07/22 at 0745, For 1 dose, Adults: Doses less than 120 mg: IV push over 20 mg/minute. Doses 120 mg or greater: IVPB at 4 mg/minute. Peds/Neonates: Doses less than 120 mg over 0.5 mg/kg/minute. Doses 120 mg or greater: IVPB at 4 mg/minute. gabapentin capsule 200 mg (NEURONTIN) Given 04/08/2022 8:24 PM CDT 200 mg 200 mg, oral, Daily at bedtime, First dose on Sun04/07/22 at 2100 Given 04/07/2022 8:07 PM CDT 200 mg gabapentin capsule 300 mg (NEURONTIN) Given 04/09/2022 8:02 AM CDT 300 mg 300 mg, oral, Every morning, First dose on 04/08/22 at 0900 Given 04/08/2022 9:26 AM CDT 300 mg HYDROmorphone (PF) injection 0.2 mg Given 04/07/2022 12:23 AM CD T 0.2 mg (DILAUDID) 0.2 mg, intravenous, Every 5 min PRN, moderate pain or score 4-6 of 10, severe pain or score 7-10 of 10, Starting on Elizabeth 04/06/22 at 2304, PACU (only), Up to maximum total dose of 2 mg Given 04/06/2022 11:21 PM CDT 0.2 mg Given 04/06/2022 11:16 PM CDT 0.2 mg insulin aspart U-100 Given 04/09/2022 12:28 PM CDT 2 Units Left Upper Arm injection 0-13 Units (Barney k) (NovoLOG FlexPen) 0-13 Units, subcutaneous, 3 times daily, First dose on 04/08/22 at 1845, Insulin Scale: Moderate Correction Scale, 140 - 179: 2 units, 180 - 219: 4 units, 220 - 259: 6 units, 260 - 299: 8 units, 300 - 339: 10 units, 340 - 379: 12 units, 380 - 399: 13 units, Greater than 399: Call service writing Insulin orders Given 04/08/2022 7:10 PM CDT 4 Units Right Upper Arm (Back) insulin regular injection 5 Units Given 04/07/2022 8:11 AM CDT 5 Units 5 Units (rounded from 5.15 Units = 0.05 Units/kg ? 103 kg Dosing weight), intravenous, Once, On Sun04/07/22 at 0745, For 1 dose, Flush line with 2 mL 0.9% NaCl after administration. Use luer lock insulin syringe to administer. Use subcutaneous insulin syringe to administer if ordered for subcutaneous route. lactated ringers Rate/Dose Change 04/07/2022 11:45 AM CDT 50 mL/hr 50 mL/hr 50 mL/hr, intravenous, Continuous, Starting on Elizabeth 04/06/22 at 2315 lactated ringers New Bag 04/06/2022 11:15 PM CDT 20 mL/hr 20 mL/hr 20 mL/hr, intravenous, Continuous, Starting on Elizabeth 04/06/22 at 2315, PACU & Post-Op lactated ringers New Bag 04/07/2022 4:30 AM CDT 20 mL/hr 20 mL/hr 20 mL/hr, intravenous, Continuous, Starting on Sun04/07/22 at 0400 magnesium oxide tablet 800 mg (MAG-OX) Given 04/09/2022 5:17 AM CDT 800 mg 800 mg, oral, Daily before breakfast, First dose on 04/08/22 at 0700 Given 04/08/2022 6:52 AM CDT 800 mg methylPREDNISolone sod succinate (PF) Given 04/08/2022 9:27 AM C DT 125 mg injection 125 mg (SOLU-Medrol) 125 mg, intravenous, Once, On Sun04/08/22 at 0900, For 1 dose, Administer on postoperative day 2 Activate vial to a final concentration of 62.5 mg/mL methylPREDNISolone sod succinate (PF) Given 04/07/2022 2:33 PM C DT 250 mg injection 250 mg (SOLU-Medrol) 250 mg, intravenous, Once, On Sun04/07/22 at 1500, For 1 dose, Administer on postoperative day 1 Activate vial to a final concentration of 62.5 mg/mL multivitamin/mineral- tablet 1 Given 04/09/2022 8:02 AM CDT 1 tablet tablet 1 tablet, oral, Daily, First dose on Sun04/07/22 at 0900 Given 04/08/2022 9:26 AM CDT 1 tablet Given 04/07/2022 8:19 AM CDT 1 tablet mycophenolate capsule 750 mg (CELLCEPT) Given 04/06/2022 6:04 PM CDT 750 mg 750 mg, oral, Once, On Elizabeth 04/06/22 at 1800, For 1 dose, Swallow whole. Do NOT crush, chew or open capsule., Continuation of izqcq-kf-pacpwogaj therapy? Yes mycophenolate capsule 750 mg (CELLCEPT) Given 04/09/2022 8:02 AM CDT 750 mg 750 mg, oral, 2 times daily, First dose on Sun04/07/22 at 0900, Swallow whole. Do NOT crush, chew or open capsule., Continuation of cppfc-ik-wicghtnkh therapy? Yes Given 04/08/2022 8:24 PM CDT 750 mg Given 04/08/2022 9:27 AM CDT 750 mg NaCl 0.45 % infusion 0-600 mL Rate/Dose Change 04/07/2022 10:00 AM CDT 100 mL/hr 0-600 mL, intravenous, Continuous, Starting on Elizabeth 04/06/22 at 2315, Replace urine output in a ratio with 0.45% NaCl intravenous over 1 hour: If preceding hour urine output was 0-200 mL, replace mL per mL up to 200 mL. If preceding hour urine output was 201-400 mL, replace with 200 mL plus 0.5 mL of volume above 200 mL. If preceding hour urine output was 401 mL or greater, replace with 300 mL plus 0.25 mL per mL of volume above 400 mL Rate/Dose Verify 04/07/2022 9:00 AM CDT 150 mL/hr Rate/Dose Change 04/07/2022 8:00 AM CDT 150 mL/hr NaCl 0.9 % bolus 1,000 mL New Bag 04/07/2022 8:00 AM CDT 1,000 mL 1000 mL/hr 1,000 mL, intravenous, at 1,000 mL/hr, Administer over 1 Hours, Once, On Sun04/07/22 at 0745, For 1 dose naloxone injection 0.2 mg (NARCAN) 0.2 mg, intravenous, As needed, respirat ory depression, Starting on Sun04/07/22 at 0304, For RASS Score -4 or less, respiratory rate of l ess than 8 breaths/min. Notify provider/service and rapid response team (if av ailable at institution). nebivoloL tablet 5 mg (BYSTOLIC) Given 04/09/2022 8:02 AM CDT 5 mg 5 mg, oral, Daily, First dose on Sun04/07/22 at 0900 Given 04/08/2022 9:27 AM CDT 5 mg Given 04/07/2022 8:45 AM CDT 5 mg nystatin suspension 500,000 Units Given 04/09/2022 12:26 PM CDT 500,000 Units (MYCOSTATIN) 500,000 Units, swish & spit, 4 times daily after meals and bedtime, First dose on Sun04/07/22 at 0900, For 30 days, Indications: Prophylaxis, medical Given 04/09/2022 8:02 AM CDT 500,000 Units Given 04/08/2022 8:24 PM CDT 500,000 Units oxyCODONE IR tablet 10 mg (ROXICODONE) Given 04/09/2022 8:19 AM CDT 10 mg 10 mg, oral, Every 4 hours PRN, severe pain or score 7-10 of 10, Starting on Sun04/07/22 at 0304 Given 04/07/2022 9:57 PM CDT 10 mg Given 04/07/2022 3:19 PM CDT 10 mg oxyCODONE IR tablet 5 mg (ROXICODONE) Given 04/07/2022 11:11 AM CDT 5 mg 5 mg, oral, Every 4 hours PRN, moderate pain or score 4-6 of 10, Starting on Sun04/07/22 at 0304 oxyCODONE IR tablet 5 mg (ROXICODONE) Given 04/07/2022 12:29 AM CDT 5 mg 5 mg, oral, Once as needed, moderate pain or score 4-6 of 10, severe pain or score 7-10 of 10, Starting on Sun04/07/22 at 0024, For 1 dose, PACU (only) pantoprazole DR tablet 40 mg (PROTONIX) Given 04/06/2022 6:04 PM CDT 40 mg 40 mg, oral, Once, On Elizabeth 04/06/22 at 1800, For 1 dose, Pre-Op, Swallow whole. Do NOT crush, chew, or split tablet. pantoprazole DR tablet 40 mg (PROTONIX) Given 04/09/2022 5:17 AM CDT 40 mg 40 mg, oral, Daily before breakfast, First dose on Sun04/07/22 at 0700, Swallow whole. Do NOT crush, chew, or split tablet. Given 04/08/2022 6:52 AM CDT 40 mg Given 04/07/2022 6:31 AM CDT 40 mg polyethylene glycol powder packet 1 pack et (MIRALAX) 1 packet, oral, Daily PRN, constipation, Starting on Sun04/07/22 at 0304, Ordered sequence of administration: polyethylene glycol, then bisacodyl until BM achieved. Avoid mixing with starch-based thickened liquids. predniSONE tablet 20 mg (DELTASONE) 20 mg, oral, Daily, First dose (after last modificatio n) on 04/10/22 at 0900 predniSONE tablet 40 mg (DELTASONE) Given 04/09/2022 8:03 AM CDT 40 mg 40 mg, oral, Once, On Sun04/09/22 at 0000, For 1 dose, Administer on postoperative day 3 rosuvastatin tablet 5 mg (CRESTOR) Given 04/08/2022 8:24 PM CDT 5 mg 5 mg, oral, Daily at bedtime, First dose (after last modification) on Sun04/07/22 at 2100 Given 04/07/2022 8:07 PM CDT 5 mg sennosides-docusate sodium 8.6-50 mg per Given 04/09/2022 8:02 A M CDT 1 tablet tablet 1 tablet (SENOKOT-S) 1 tablet, oral, 2 times daily, First dose on Sun04/07/22 at 0900, Do not give if patient has diarrhea. Given 04/08/2022 8:24 PM CDT 1 tablet Given 04/08/2022 9:27 AM CDT 1 tablet sertraline tablet 25 mg (ZOLOFT) Given 04/08/2022 8:24 PM CDT 25 mg 25 mg, oral, Daily at bedtime, First dose on Sun04/07/22 at 2100 Given 04/07/2022 8:07 PM CDT 25 mg sodium chloride 0.9 % flush 250 mL Given 04/06/2022 4:37 PM CDT 250 mL 250 mL, intravenous, As needed, line care, For priming and rinse back post dialysis, Starting on Elizabeth 04/06/22 at 1611, Dialysis, Dialysis order only. sulfamethoxazole-trimethoprim 400-80 mg per Given 03/21 8:09 AM CDT 1 tablet tablet 1 tablet (BACTRIM,SEPTRA) 1 tablet, oral, Daily, First dose on Sun04/07/22 at 0900, Can be crushed and given by feeding tube and is preferred over suspension., Drug Monitoring Program: Pharmacist to adjust medication dosing based on indication and drug clearance factors., Indications: Prophylaxis, medical Given 04/08/2022 9:26 AM CDT 1 tablet Given 04/07/2022 8:19 AM CDT 1 tablet sulfamethoxazole-trimethoprim 400-80 mg per tablet 1 tablet (BACTRIM,SEPTRA) 1 tablet, oral, 3 times weekly (Once per day on Sun), First dose (after last modification) on Sun04/10/22 at 090 0, Can be crushed and given by feeding tube and is preferred over suspension., Drug Monitoring Program: Pharmacist to adjust medication dosing based on indication and drug clearan ce factors., Indications: Prophylaxis, medical tacrolimus capsule 3 mg (PROGRAF) Given 04/09/2022 8:09 AM CDT 3 mg 3 mg, oral, 2 times daily - immunosuppression, First dose on Sun04/07/22 at 2000 Given 04/08/2022 8:24 PM CDT 3 mg Given 04/08/2022 9:27 AM CDT 3 mg valGANciclovir tablet 450 mg (VALCYTE) Given 04/09/2022 8:09 AM CDT 450 mg 450 mg, oral, Daily, First dose on Sun04/07/22 at 0900, Swallow whole. Do NOT crush, chew, or split tablet., Drug Monitoring Program: Pharmacist to adjust medication dosing based on indication and drug clearance factors., Indications: Prophylaxis, medical Given 04/08/2022 9:27 AM CDT 450 mg Given 04/07/2022 8:19 AM CDT 450 mg valGANciclovir tablet 450 mg (VALCYTE) 450 mg, oral, 3 times weekly (Once per d ay on Sun), First dose (after last modification) on Sun04/10/22 at 0900, Sw allow whole. Do NOT crush, chew, or split tablet., Drug Monitoring Program: Pharma cist to adjust medication dosing based on indication and drug clearance factors., Indications: P rophylaxis, medical documented in this encounter Active and Recently Administered Medications Times are shown in CDT. Scheduled Medication Order 04/07/2022 04/08/2022 04/09/2022 acetaminophen tablet 650 mg (TYLENOL) 0524 (Given - Pr ovider: Ann OatesNDavi)1111 (Given - Provider: Joshua Canada R.N.)1751 (Given - Provider: Ann DelaneyN.)2356 (Given - Provider: Stephanie Mcgee RDaviNDavi) 0652 (Given - Provider: Stephanie Mcgee RDaviNDavi)1246 (Given - Provider: Rosey Noe RDaviNDavi)1806 (Given - Provider: Janis Dawn RDaviNDavi) 0010 (Given - Provider: Alexa Klein RDaviNDavi)0517 (Given - Provider: Alexa Klein RDaviNDavi)1226 (Given - Provider: Ann DelaneyNDavi) 650 mg, oral, Every 6 hours, First dose on Sun04/07/22 at 0600, (not to exceed 4 grams in 24 hours) albuterol nebulizer solution 5 mg (COMPLETED) 0756 (Gi maeve - Provider: Joshua Canada R.N.)0802 (Given - Provider: Ann DelaneyN.)0804 (Given - Provider: Joshua Canada RDaviNDavi) 5 mg, nebulization, Every 5 min, First dose on 03/20 at 0745, For 3 doses basiliximab 20 mg in NaCl 0.9% IVPB (SIMULECT) 20 mg, intravenous, at 110 mL/hr, Admini ster over 30 Minutes, Once, On Sun04/10/22 at 1000, For 1 dose, Administer 4 days after transplant calcium gluc in NaCl, iso-osm IVPB 2 g (COMPLETED) 084 6 (New Bag - Provider: Joshua Canada RDaviNDavi) 2 g, intravenous, at 400 mL/hr, Administ er over 15 Minutes, Once, On Sun04/07/22 at 0745, For 1 dose, For peripheral IV administration (avoid antecubital fossa, dorsum of hand or wrist if possible). MD porter sample case to directly observe IV site for po ssible extravasation for the duration of infusion. ceFAZolin in dextrose (iso-os) IVPB 2 g (ANCEF) (COMPL ETED) 0524 (New Bag - Provider: Dara Chakraborty R.N.)1433 (New Bag - Provider: Joshua Canada R.N.)221 (New Bag - Provider: Stephanie Mcgee R.N.) 2 g, intravenous, at 200 mL/hr, Administ er over 30 Minutes, Every 8 hours, First dose on Sun04/07/22 at 0600, For 24 hours, Start at 8 hours after last intraoperative dose., [facility] medication dosing base d on indication and drug clearance factors., Indications: Prophylaxis, surgical D10W bolus bolus (COMPLETED) 08 (New Bag - Provider: Joshua olson R.N.) 83 mL/hr, intravenous, Administer over 3 Hours, Once, On Sun04/07/22 at 0745, For 1 dose, Start dextrose infusion prior to administering insulin. dextrose 50 % injection 12.5 g (COMPLETED) 806 (Given - Provider: Joshua Canada R.N.) 12.5 g, intravenous, Once, On Sun 2 at 0745, For 1 dose, Administer D50W immediately before insulin is administered furosemide injection 40 mg (LASIX) (COMPLETED) 756 (G iven - Provider: Joshua Canada RRalf) 40 mg, intravenous, Once, On Sun04/07/22 at 0745, For 1 dose, Adults: Doses less than 120 mg: IV push over 20 mg/minute. Doses 120 mg or greater: IVPB at 4 mg/minute. Peds/Neonates: Doses less than 120 mg over 0.5 mg/kg/minute. Doses 120 mg or greater: IVPB at 4 mg/ minute. gabapentin capsule 200 mg (NEURONTIN) 2006 (Given - Pr ovider: Stephanie Mcgee R.N.) 2023 (Given - Provider: Alexa Klein R.N.) 200 mg, oral, Daily at bedtime, First dose on Sun04/07/22 at 210 0 gabapentin capsule 300 mg (NEURONTIN) 09 (Given - Provider: Rosey Noe RDaviN.) 0802 (Given - Provider: Joshua Canada R.N.) 300 mg, oral, Every morning, First dose on Sun04/08/22 at 0900 insulin aspart U-100 injection 0-13 Units (NovoLOG FlexPen) 1910 (Given - Provider: Janis Dawn RDaviN.) 0745 (Not Given - Provider: Joshua sousa RDaviN. - Reason: Order parameters not met)1228 (Given - Provider: Ann DelaneyNDavi) 0-13 Units, subcutaneous, 3 times daily, First dose on Sun04/08/22 at 1845, Insulin Scale: Moderate Correction Scale, 140 - 179: 2 units, 180 - 219: 4 units, 220 - 259: 6 units, 260 - 299: 8 units, 300 - 339: 10 units, 340 - 379: 12 units, 38 0 - 399: 13 units, Greater than 399: Call service writing Insulin orders insulin regular injection 5 Units (COMPLETED) 08 (Gi maeve - Provider: Joshua Canada R.N.) 5 Units (rounded from 5.15 Units = 0.05 Units/kg ? 103 kg Dosing weight), intravenous, Once, On Sun04/07/22 at 0745, For 1 dose, Flush line with 2 mL 0.9% NaCl after administration. Use luer lock insul in syringe to administer. Use subcutaneo us insulin syringe to administer if ordered for subcutaneous route. magnesium oxide tablet 800 mg (MAG-OX) 0 652 (Given - Provider: Stephanie Mcgee RDaviN.) 0517 (Given - Provider: Alexa pizarro R.NDavi) 800 mg, oral, Daily before breakfast, First dose on 04/08/22 at 0700 methylPREDNISolone sod succinate (PF) in jection 125 mg (SOLU-Medrol) (COMPLETED) 926 (Given - Provider: Rosey king RDaviNDavi) 125 mg, intravenous, Once, On Sun 2 at 0900, For 1 dose, Administer on postoperative day 2 Activate vial to a final concentration of 62.5 mg/mL methylPREDNISolone sod succinate (PF) in jection 250 mg (SOLU-Medrol) (COMPLETED) 143 (Given - Provider: Joshua Canada R.N.) 250 mg, intravenous, Once, On Sun 2 at 1500, For 1 dose, Administer on postoperative day 1 Activate vial to a final concentration of 62.5 mg/mL multivitamin/mineral- tablet 1 tablet 818 (Gi maeve - Provider: Joshua Canada R.N.) 925 (Given - Provider: Rosey Noe R.N.) 03 21 (Given - Provider: Joshua Canada R.N.) 1 tablet, oral, Daily, First dose on Sun04/07/22 at 0900 mycophenolate capsule 750 mg (CELLCEPT) 818 (Given - Provider: Joshua Canada R.N.)2005 (Given - Provider: Stephanie Mcgee R.N.) 926 (Given - Provider: Rosey Noe R.N.)2023 (Given - Provider: Alexa Klein R.N.) 08 (Given - Provider: Joshua Canada R.N.) 750 mg, oral, 2 times daily, First dose on Sun04/07/22 at 0900, Swallow whole. Do NOT crush, chew or open capsule., Continuation of tyvay-on-liykjwvbw therapy? Yes NaCl 0.9 % bolus 1,000 mL (COMPLETED) 799 (New Bag - Provider: Ann DelaneyNDavi) 1,000 mL, intravenous, at 1,000 mL/hr, A dminister over 1 Hours, Once, On Sun04/07/22 at 0745, For 1 dose nebivoloL tablet 5 mg (BYSTOLIC) 844 (Given - Provider: Ann KuoNDavi) 926 (Given - Provider: Rosey Noe R.N.) 08 (Given - Provider: Ann DelaneyN.) 5 mg, oral, Daily, First dose on Sun04/07/22 at 0900 nystatin suspension 500,000 Units (MYCOSTATIN) 0819 (G iven - Provider: Joshua Canada R.N.)1433 (Given - Provider: Joshua Canada R.N.)1751 (Given - Provider: Joshua Canada R.N.)2005 (Given - Provider: Stephanie Mcgee R.N.) 0927 (Given - Provider: Rosey Noe R.N.)1247 (Given - Provider: Ann AshbyNDavi)1806 (Given - Provider: Ann SmithNDavi)2023 (Given - Provider: Alexa Klein R.N.) 08 (Given - Provider: Joshua Canada R.N.)1226 (Given - Provider: Joshua Canada R.N.) 500,000 Units, swish & spit, 4 times zoraida ly after meals and bedtime, First dose on Sun04/07/22 at 0900, For 30 days, Indications: Prophylaxis, medical pantoprazole DR tablet 40 mg (PROTONIX) 0631 (Given - Provider: Dara Chakraborty RDaviNDavi) 0652 (Given - Provider: Stephanie Mcgee R.N.) 0517 ( Given - Provider: Alexa Klein R.N.) 40 mg, oral, Daily before breakfast, Fir st dose on Sun04/07/22 at 0700, Swallow whole. Do NOT crush, chew, or split tablet. predniSONE tablet 20 mg (DELTASONE) 20 mg, oral, Daily, First dose (after last modificatio n) on Sun04/10/22 at 0900 predniSONE tablet 40 mg (DELTASONE) (COMPLETED) 802 (Given - Provider: Joshua Canada R.N.) 40 mg, oral, Once, On Sun04/09/22 at 000 0, For 1 dose, Administer on postoperative day 3 rosuvastatin tablet 5 mg (CRESTOR) 2006 (Given - Provi kristi: Stephanie Mcgee R.N.) 2023 (Given - Provider: Alexa Klein RDaviNDavi) 5 mg, oral, Daily at bedtime, First dose (after last modification) on Sun04/07/22 at 2100 sennosides-docusate sodium 8.6-50 mg per tablet 1 tabl et (SENOKOT-S) 0819 (Given - Provider: Joshua Canada RDaviN.)2005 (Given - Provider: Stephanie Mcgee R.N.) 926 (Given - Provider: Rosey king RDaviNDavi)2023 (Given - Provider: Ann ZepedaN.) 08 (Given - Provider: Joshua Canada R.N.) 1 tablet, oral, 2 times daily, First dos e on Sun04/07/22 at 0900, Do not give if patient has diarrhea. sertraline tablet 25 mg (ZOLOFT) 2006 (Given - Provide r: Stephanie Mcgee R.N.) 2023 (Given - Provider: Alexa Klein RDaviNDavi) 25 mg, oral, Daily at bedtime, First dose on Sun04/07/22 at 2100 sulfamethoxazole-trimethoprim 400-80 mg per tablet 1 tablet (BACTRIM,SEPTRA) (CANCELED) 818 (Given - Provider: Joshua Canada RDaviN.) 09 (G iven - Provider: Rosey Noe RDaviNDavi) 08 (Given - Provider: Joshua Canada RDaviN.) 1 tablet, oral, Daily, First dose on Sun04/07/22 at 0900, Can be crushed and given by feeding tube and is preferred over suspension., Drug Monitoring Program: Pharmacist to adjust medication dosing base d on indication and drug clearance factors., Indications: Pr ophylaxis, medical sulfamethoxazole-trimethoprim 400-80 mg per tablet 1 tablet (BARNEY TRIM,SEPTRA) 1 tablet, oral, 3 times weekly (Once per day on Sun), First dose (after last modification) on Sun04/10/22 at 0900, Can be crushed and given by feeding tube and is preferred over suspension., [place] Monitoring Program: Pharmacist to adju st medication dosing based on indication and drug clearance factors., Indications: Prophylaxis, medical tacrolimus capsule 3 mg (PROGRAF) 2006 (Given - Provid er: Stephanie Mcgee R.N.) 926 (Given - Provider: Rosey king R.N.)2023 (Given - Provider: Alexa Klein R.N.) 808 (Given - Provider: Joshua Canada R.N.) 3 mg, oral, 2 times daily - immunosuppre ssion, First dose on Sun04/07/22 at 2000 valGANciclovir tablet 450 mg (VALCYTE) (CANCELED) 818 (Given - Provider: Joshua Canada R.N.) 926 (Given - Provider: Rosey Noe R.N.) 03 28 (Given - Provider: Joshua Canada R.N.) 450 mg, oral, Daily, First dose on Sun at 0900, Swallow whole. Do NOT crush, chew, or split tablet., Drug Monitoring Program: Pharmacist to adjust medication dosing based on indication and drug clearance factors., Indications: Prophylaxis, medical valGANciclovir tablet 450 mg (VALCYTE) 450 mg, oral, 3 times weekly (Once per d ay on Sun), First dose (after last modification) on Sun04/10/22 at 0900, Swallow whole. Do NOT crush, chew, or split tablet., Drug Monitoring Program: Pha rmacist to adjust medication dosing base d on indication and drug clearance factors., Indications: Prophylaxis, medical Continuous Medication Order 04/07/2022 04/08/2022 04/09/2022 lactated ringers (CANCELED) 1145 (Rate/Dose Change - P rovider: Joshua Canada R.N.)1600 (Stopped - Provider: Joshua Canada R.N.) 50 mL/hr, intravenous, Continuous, Starting on Sun04/06/22 at 23 15 lactated ringers (CANCELED) 0430 (New Bag - Provider: Dara rene RDaviNDavi) 20 mL/hr, intravenous, Continuous, Starting on Sun04/07/22 at 04 00 NaCl 0.45 % infusion 0-600 mL (CANCELED) 0014 (Rate/Do se Change - Provider: Ying Fitch R.N.)0120 (Rate/Dose Change - Provider: Dara Chakraborty R.N.)0200 (Rate/Dose Change - Provider: Dara Chakraborty R.N.)0300 (Rate/Dose Change - Provider: Dara Chakraborty R.N.) 0-600 mL, intravenous, Continuous, Start ing on Elizabeth 04/06/22 at 2315, Replace urine output in a ratio with 0.45% NaCl intravenous over 1 hour: If preceding hour urine output was 0-200 mL, replace mL per m 0404 (Rate/Dose Change - Provider: Dara Chakraborty R.N.)0556 (Rate/Dose Change - Provider: Dara Chakraborty R.N.)0658 (Rate/Dose Change - Provider: Dara Chakraborty R.N.)0800 (Rate/Dose Change - Provider: Joshua Canada R.N.) L up to 200 mL. If preceding hour urine output was 201-400 mL, replace with 200 mL plus 0.5 mL of volume above 200 mL. If preceding hour urine output was 401 mL or greater, replace with 300 mL plus 0.25 mL per mL of volume above 400 mL 0900 (Rate/Dose Verify - Provider: Joshua Canada R.N.)1000 (Rate/Dose Change - Provider: Joshua Canada R.N.)1030 (Stopped - Provider: Joshua Canada R.N.) PRN Medication Order 04/07/2022 04/08/2022 04/09/2022 acetaminophen injection 1,000 mg (COMPLETED) 0002 (New Bag - Provider: Ying Fitch R.N.) 1,000 mg, intravenous, at 400 mL/hr, Adm inister over 15 Minutes, Once as needed, other, If patient has not received in previous 6 hours, Starting on Elizabeth 04/06/22 at 2304, For 1 dose, PACU (only), Oral un less RASS less than -1 or nausea/vomitin g. Do not use if given in last 6 hours, Restriction Criteria (Pharmacy will review and approve if criteria met): Unable to take or tolerate medications administer ed via the enteral route or orally (not just NPO) belladonna alkaloids-opium 16.2-30 mg suppository 1 goff ppository (B&O SUPPRETTS) 1 suppository, rectal, Every 6 hours PRN , bladder spasms, Starting on Sun04/07/22 at 0304 bisacodyL suppository 10 mg (DULCOLAX) 10 mg, rectal, Daily PRN, constipation, Starting on Sun04/07/22 at 0304, Ordered sequence of administration: polyethylene glycol, then bisacodyl until BM achieved. haloperidol lactate injection 1 mg (HALDOL) 1 mg, intravenous, Every 6 hours PRN, na usea, vomiting, Starting on Sun04/07/22 at 0304, For 48 hours, Total of 3 doses in 24 hour period. RASS must be -2 or higher to administer. Reassess for nausea or vomiting after at least 10 minutes. If nausea or vomiting persists administer next ordered antiemetic medications (order for antiemetic medication administration ondansetron then haloperidol then promethazine) HYDROmorphone (PF) injection 0.2 mg (DILAUDID) (CANCEL ED) 0023 (Given - Provider: Ying Fitch R.N.) 0.2 mg, intravenous, Every 5 min PRN, mo derate pain or score 4-6 of 10, severe pain or score 7-10 of 10, Starting on Elizabeth 04/06/22 at 2304, PACU (only), Up to maximum total dose of 2 mg naloxone injection 0.2 mg (NARCAN) 0.2 mg, intravenous, As needed, respirat ory depression, Starting on Sun04/07/22 at 0304, For RASS Score -4 or less, respiratory rate of less than 8 breaths/min. Notify provider/service and rapid response team (if available at institution). ondansetron (PF) injection 4 mg (ZOFRAN) 4 mg, intravenous, Every 6 hours PRN, na usea, vomiting, Starting on Sun04/07/22 at 0304, For 48 hours, Reassess for nausea or vomiting after at least 10 minutes. If nausea or vomiting persists administe r next ordered antiemetic medications (o rder for antiemetic medication administration ondansetron then droperidol then promethazine). oxyCODONE IR tablet 10 mg (ROXICODONE)(Linked Group 1) 1111 (See Alternative - Provider: Joshua Canada R.N.)1519 (Given - Provider: Joshua Canada RDaviN.)2157 (Given - Provider: Stephanie Mcgee RDaviN.) 0 819 (Given - Provider: Joshua Canada R.N.) 10 mg, oral, Every 4 hours PRN, severe p ain or score 7-10 of 10, Starting on Sun04/07/22 at 0304 oxyCODONE IR tablet 5 mg (ROXICODONE)(Linked Group 1) 1111 (Given - Provider: Joshua Canada R.N.)1519 (See Alternative - Provider: Ann DelaneyN.)2157 (See Alternative - Provider: Stephanie Mcgee RDaviN.) 0819 (See Alternative - Provider: Joshua Canada R.N.) 5 mg, oral, Every 4 hours PRN, moderate pain or score 4-6 of 10, Starting on Sun04/07/22 at 0304 oxyCODONE IR tablet 5 mg (ROXICODONE) (COMPLETED) 0029 (Given - Provider: Ying Fitch RDaviN.) 5 mg, oral, Once as needed, moderate patricia n or score 4-6 of 10, severe pain or score 7-10 of 10, Starting on Sun04/07/22 at 0024, For 1 dose, PACU (only) polyethylene glycol powder packet 1 packet (MIRALAX) 1 packet, oral, Daily PRN, constipation, Starting on Sun04/07/22 at 0304, Ordered sequence of administration: polyethylene glycol, then bisacodyl until BM achieved. Avoid mixing with starch-based thickened liquids. promethazine injection 6.25 mg (PHENERGAN) 6.25 mg, intravenous, Every 6 hours PRN, nausea, vomiting, Starting on Sun04/07/22 at 0304, For 48 hours, RASS must be -2 or higher to administer. Reassess for nausea/vomiting after at least 10 minutes. If nausea or vomiting persists administ er next ordered antiemetic medications (order for antiemetic medication administration ondansetron then droperidol then promethazine). Linked Groups Order Group 1: oxyCODONE IR tablet 5 mg (ROXICODONE)Jump to med 5 mg, oral, Every 4 hours PRN, moderate pain or score 4-6 of 10, Starting on Sun04/07/22 at 0304 Or oxyCODONE IR tablet 10 mg (ROXICODONE)Jump to med 10 mg, oral, Every 4 hours PRN, severe p ain or score 7-10 of 10, Starting on Sun04/07/22 at 0304 documented in this encounter Additional Health Concerns Infection Onset Date Last Indicated Resolved Time COVID19 Pending 04/06/2022 04/06/2022 04/06/2022 5:32 PM CDT Assessment Noted Time PHQ-9 Depression Total Score: 3 04/07/2021 9:37 AM CDT documented as of this encounter Care Teams Agronomy Instructor Relationship Specialty Start Date End Date Elsewhere, Pcp PCP - General 09/17/19 documented as of this encounter
--- OUTSIDE RECORDS SUMMARY | 2022-05-25 13:01 | XMS_ITS | Encounter Summary ---
:1960 Author Organization [facility] Address [address] [place] [phone] Care Team Providers Name Role Phone Elsewhere, Pcp Primary Care Provider Unavailable Reason for Visit Transplant (Routine) - Closed Specialty Diagnoses / Procedures Referred By Contact Refer red To Contact Transplant Surgery / An Nicholas, [facility] Transplant CHRISTOPHER, C.N.P., D.N.P., M.S.N. [address] [place] [phone] Referral ID Status Reason Start Date Expiration Date Visits Requ ested Visits Authorized [id number] Closed 04/07/2022 04/06/2025 1 1 Encounter Details Date Type Department Care Team Description 04/11/2022 Nurse Only [facility] Orozco APRN, C.N.P., D.N.P., M.S.N. [address] [place] [phone] for Transplantation and Sandra Peterson R.N., C.C.T.C. [address] [place] [phone] Clinical Regeneration in [place], [place] [address] [place] [phone] Social History Tobacco Use Types Packs/Day [...] often do you attend roman catholic or moravian 1 to 4 times per [...] Sign Reading Time Taken Comments Blood Pressure 133/77 04/11/2022 8:23 AM CDT Pulse 66 04/11/2022 8:23 AM CDT Temperature 35.7 ??C (96.3 ??F) 04/11/2022 8:23 AM CDT Respiratory Rate - - Oxygen Saturation - - Inhaled Oxygen Concentration - - Weight 107 kg (236 lb 12.4 oz) 04/11/2022 8:23 AM CDT Height 165.4 cm (5' 5.12) 04/11/2022 8:23 AM CDT Body Mass Index 39.26 04/11/2022 8:23 AM CDT documented in this encounter Progress Notes Alexa Kent R.N. - 04/11/2022 8:30 AM CDT Patient reported to Transplant Center for first visit post hospital dismissal following kidney transplant. Patient accompanied by her friend. Discussed transition to outpatient services and reviewed the check list of consultations, education classes and tests that will be necessary prior to dismissal.Discussed the process for follow-up appointments and laboratory work; including the importance of a 12 hour trough for Prograf/CellCept levels. Patient provided teach back teaching of medication regimen. Discussed with the patient the need for a primary care provider, a laboratory for blood draws, [facility] pharmacy after discharge from the transplant center outpatient clinic. [facility] transplant center return appointments, per provider. Given Transplant Center telephone number magnet ([phone]). Given BK Polyomavirus ([id number]). Will be available for questions as needed and meet with patientin the near future for dismissal education. All questions and concerns addressed. Patient states unde rstanding of information. No barriers to learning identified. Alexa Kent RN [facility] [address] [place], [place] PCP: CHANELLE Caraballo Lab: [facility] documented in this encounter Plan of Treatment Upcoming Encounters Date Type Specialty Care Team Description 06/01/2022 Telemedicine Pharmacy An Nicholas APRN, C.N.P., D.N.P., M.S.N. [address] [place] [address] [phone] (Nicolas wen) 07/31/2022 Lab Laboratory Medicine Tony Rubalcava M. B., Ch.BDavi, M.D. [address] [place] [address] [phone] (Nicolas wen) 07/31/2022 Lab Laboratory Medicine Tony Rubalcava M. B., Sydnie, Mukund [address] [place] [address] [phone] (Wo rk) 07/31/2022 Office Visit Transplant Tony Rubalcava M.B., Sydnie, Mukund [address] [place] [address] [phone] (Wo rk) 07/31/2022 Appointment Radiology Tony Rubalcava M.B., Sydnie, Mukund [address] [place] [address] [phone] (Wo rk) 08/01/2022 Office Visit Transplant Tony Rubalcava M.B., Sydnie, Mukund [address] [place] [address] [phone] (Wo rk) 08/01/2022 Clinical Support Transplant Tony Rubalcava M.B., Sydnie, Mukund [address] [place] [address] [phone] (Wo rk) documented as of this encounter Visit Diagnoses Diagnosis Aftercare Transplant Renal (HCC) - Prima ry documented in this encounter Additional Health Concerns Assessment Noted Time PHQ-9 Depression Total Score: 3 04/07/2021 9:37 AM CDT documented as of this encounter Care Teams President Sales And Marketing Relationship Specialty Start Date End Date Elsewhere, Pcp PCP - General 09/17/19 [facility] External Provider Laboratory Medicine 04/11/22 04/24/22 documented as of this encounter
--- OUTSIDE RECORDS SUMMARY | 2022-05-25 13:01 | XMS_ITS | Encounter Summary ---
:1960 Author Organization [facility] Address [address] [place] [address] Care Team Providers Name Role Phone Elsewhere, Pcp Primary Care Provider Unavailable Reason for Visit Reason Comments Outpatient Infusion Episode Based Medications (Routine) - Closed Specialty Diagnoses / Procedures Referred By Contact Refer red To Contact Diagnoses Transplant Renal (HCC) An Nicholas, CHRISTOPHER, Rst Inf jose C.N.PDavi, D.N.P., M.S. N. [address] [place] [address] [place] [phone] [place] [phone] Referral ID Status Reason Start Date Expiration Date Visits Requ ested Visits Authorized [id number] Closed 04/07/2022 04/07/2023 99 99 Encounter Details Date Type Department Care Team Description 04/10/2022 Infusion Department of Infusion An Nicholas, Transplant Renal (HCC) Therapy in [facility] CHRISTOPHER C.N.PDavi, (Prim alfie Dx) [place] Michelle.N.P., M.S.N. [address] [place] [address] [place] [phone] (Wo rk) Social History Tobacco Use Types [...] How often do you attend restorationism or mandaeism 1 to 4 times per year 12/23/2021 [...] Sign Reading Time Taken Comments Blood Pressure 159/97 04/10/2022 8:17 AM CDT Pulse 70 04/10/2022 8:17 AM CDT Temperature 36.4 ??C (97.5 ??F) 04/10/2022 8:17 AM CDT Respiratory Rate 20 04/10/2022 8:17 AM CDT Oxygen Saturation - - Inhaled Oxygen Concentration - - Weight - - Height - - Body Mass Index - - documented in this encounter Plan of Treatment Upcoming Encounters Date Type Specialty Care Team Description 06/01/2022 Telemedicine Pharmacy An Nicholas APRN, C.N.P., Clement., M.S.N. [address] [place] [address] [phone] (Nicolas rk) 07/31/2022 Lab Laboratory Medicine Tony Rubalcava M. B., Sydnie, MDebar [address] [place] [address] [phone] (Wo rk) 07/31/2022 Lab Laboratory Medicine Tony Rubalcava M. B., Sydnie, Mukund [address] [place] [address] [phone] (Wo rk) 07/31/2022 Office Visit Transplant Tony Rubalcava M.B., Sydnie, Mukund [address] [place] [address] [phone] (Wo rk) 07/31/2022 Appointment Radiology Tony Rubalcava M.B., Sydnie, MDebra [address] [place] [address] [phone] (Wo rk) 08/01/2022 Office Visit Transplant Tony Rubalcava M.B., Sydnie, Mukund [address] [place] [address] [phone] (Nicolas rk) 08/01/2022 Clinical Support Transplant Tony Rubalcava M.B., Sydnie, MDebra [address] [place] [address] [phone] (Nicolas wen) documented as of this encounter Visit Diagnoses Diagnosis Transplant Renal (HCC) - Primary documented in this encounter Administered Medications Inactive Administered Medications - up to 3 most recent administrations Medication Order MAR Action Action Date Dose Rate Site basiliximab 20 mg in NaCl 0.9% New Bag 04/10/2022 8:41 AM CDT 20 m g 110 mL/hr IVPB (SIMULECT) 20 mg, intravenous, at 110 mL/hr, Administer over 30 Minutes, Once, On Sun04/10/22 at 0815, For 1 dose NaCl 0.9% infusion New Bag 04/10/2022 9:12 AM CDT 20 mL/hr 20 mL/hr 10-250 mL/hr, intravenous, As needed, Post Medications (Hazardous/Low Fluid Volume), Starting on Sun04/10/22 at 0828, Infuse at the same rate as the medication until tubing cleared of medication, then discard. sodium chloride 0.9 % injection 3 mL Given 04/10/2022 8:39 AM CDT 3 mL 3 mL, intra-catheter, As needed, line care, Starting on Sun04/10/22 at 0828, Prior to and following infusion and between multiple consecutive infusions. documented in this encounter Additional Health Concerns Assessment Noted Time PHQ-9 Depression Total Score: 3 04/07/2021 9:37 AM CDT documented as of this encounter Care Teams Sr. Unix System Administrator Relationship Specialty Start Date End Date Elsewhere, Pcp PCP - General 09/17/19 documented as of this encounter
--- OUTSIDE RECORDS SUMMARY | 2022-05-25 13:01 | XMS_ITS | Encounter Summary ---
:1960 Author Organization [facility] Address [address] [place] [address] Care Team Providers Name Role Phone Elsewhere, Pcp Primary Care Provider Unavailable Encounter Details Date Type Department Care Team Description 04/07/2022 Orders Only Ata Ha, Transp lant Renal (HCC) (Primary Dx); [facility] Dara Belle R.N., Thombosis Art eriovenous Fistula Initial (HCC) Transplantation and CCTN Clinical Regeneration in [phone] [place], [place] (Work) [address] [place] [phone] Social History Tobacco Use Types Packs/Day [...] 12/23/2021 relatives? How often do you attend jainism or islam 1 to 4 times per year 12/23/2021 services? Do you belong to any clubs or organizations such No 12/23/2021 as jainism groups, unions, fraternal or athletic groups, or [...] An Nicholas APRN, C.N.P., D.N.P., M.S.N. [address] [place] [address] [phone] (Nicolas wen) 07/31/2022 Lab Laboratory Medicine Tony Rubalcava M. B., Sydnie, MDebra [address] [place] [address] [phone] (Nicolas wen) 07/31/2022 Lab Laboratory Medicine Tony Rubalcava M. B., ChBurke, MDebra [address] [place] [address] [phone] (Nicolas wen) 07/31/2022 Office Visit Transplant Tony Rubalcava M.B., Sydnie, MDebra [address] [place] [address] [phone] (Nicolas wen) 07/31/2022 Appointment Radiology Tony Rubalcava M.B., Mukund [place] [address] [place], [place] [phone] (Wo rk) 08/01/2022 Office Visit Transplant Tony Rubalcava M.B., Mukund [place] [address] [place], [place] [phone] (Wo rk) 08/01/2022 Clinical Support Transplant Tony Rubalcava M.B., Mukund [place] [address] [place], [place] [phone] (Wo rk) documented as of this encounter Results (ABNORMAL) Comprehensive Metabolic Panel (04/11/2022 7:29 AM CDT) Analysis Performed At Patho logist Time Signature Potassium, S 4.1 3.6 - 5.2 04/11/2022 DTL mmol/L 8:57 AM CDT Sodium, S 140 135 - 145 04/11/2022 DTL mmol/L 8:57 AM CDT Chloride, S 101 98 - 107 04/11/2022 DTL mmol/L 8:57 AM CDT Bicarbonate, S 21 (L) 22 - 29 04/11/2022 DTL mmol/L 8:57 AM CDT Anion Gap 18 (H) 7 - 15 04/11/2022 DTL 8:57 AM CDT BUN (Blood Urea 80 (H) 6 - 21 04/11/2022 DTL Nitrogen), S mg/dL 8:57 AM CDT Creatinine 7.46 (H) 0.59 - 04/11/2022 DTL 1.04 mg/dL 8:57 AM CDT Estimated GFR <15 (L) >=60 04/11/2022 DTL (eGFR) mL/min/BSA 9:09 AM CDT Comment: Estimated GFR calculated using the 2020 CKD_EPI creatinine equation. Calcium, Total, S 8.7 (L) 8.8 - 10.2 mg/dL 04/11/2022 8:57 AM CDT DTL Glucose, S 96 70 - 140 mg/dL 04/11/2022 8:57 AM CDT D TL Protein, Total, S 5.9 (L) 6.3 - 7.9 g/dL 04/11/2022 8:57 A M CDT DTL Albumin, S 4.0 3.5 - 5.0 g/dL 04/11/2022 8:57 AM CDT D TL Aspartate Aminotransferase 24 8 - 43 U/L 04/11/2022 8 :57 AM CDT DTL (AST), S Alkaline Phosphatase, S 121 (H) 35 - 104 U/L 04/11/2022 8: 57 AM CDT DTL Alanine Aminotransferase 9 7 - 45 U/L 04/11/2022 9:1 2 AM CDT DTL (ALT), S Bilirubin, Total, S 0.3 <=1.2 mg/dL 04/11/2022 8:57 AM CDT DTL Specimen Anatomical Collection Method Collection Time Receive d Time (Source) Location / / Volume Laterality Blood (Blood, 04/11/2022 7:29 AM 04/11/20 8:04 Venous) CDT AM CDT Tony Burton, Sydnie, MElvia. LAB BLOOD ADD-ON Performing Organization Address [facility] Phon e Number [facility] - [address] (ABNORMAL) APTT (Activated Partial Thromboplastin Time) (04/11/2022 7:29 AM CDT) P athologist Signature Activated 21 (L) 25 - 37 04/11/2022 DTL Partial sec 8:25 AM CDT Thrombopl Time, P Specimen Anatomical Collection Method Collection Time Receive d Time (Source) Location / / Volume Laterality Blood (Blood, 04/11/2022 7:29 AM 04/11/20 7:43 Venous) CDT AM CDT Tony Burton Ch.B., MDebra LAB BLOOD ADD-ON Performing Organization Address [facility] Phon e Number [facility] - [address] Prothrombin Time (PT) (04/11/2022 7:29 AM CDT) P athologist Signature Prothrombin 12.4 9.4 - [...] Laterality Blood (Blood, 04/11/2022 7:29 AM 04/11/20 22 7:43 Venous) CDT AM CDT Tony Burton, Sydnie, M.D. LAB BLOOD ADD-ON Performing Organization Address City/State/ZIP Code Phon e Number [facility] - [address] [place] [phone] [facility] [place] [address] [facility]-[address] documented in this encounter Visit Diagnoses Diagnosis Transplant Renal (HCC) - Primary Thombosis Arteriovenous Fistula Initial (HCC) documented in this encounter Additional Health Concerns Assessment Noted Time PHQ-9 Depression Total Score: 3 04/07/2021 9:37 AM CDT documented as of this encounter Care Teams Doughmaker Relationship Specialty Start Date End Date Elsewhere, Pcp PCP - General 09/17/19 documented as of this encounter
--- OUTSIDE RECORDS SUMMARY | 2022-05-25 13:01 | XMS_ITS | Encounter Summary ---
:1960 Author Organization [facility] Address [address] [place] [address] Care Team Providers Name Role Phone Elsewhere, Pcp Primary Care Provider Unavailable Encounter Details Date Type Department Care Team Description 04/07/2022 Orders Only Ata Ha, [facility] for Transplantation Dara Belle R.N., (HCC) (Primary Dx) and Clinical Regeneration [facility]N in [facility] [place] [phone] (Work) [place] [phone] Social History Tobacco Use Types Packs/Day [...] 12/23/2021 relatives? How often do you attend anglican or buddhist 1 to 4 times per year 12/23/2021 services? Do you belong to any clubs or organizations such No 12/23/2021 as anglican groups, unions, fraternal or athletic groups, or [...] An Nicholas APRN, C.N.P., D.N.P., M.S.N. [address] [place] [address] [phone] (Wo rk) 07/31/2022 Lab Laboratory Medicine Tony Rubalcava M. B., ChBurke, MDebra [address] [place] [address] [phone] (Wo rk) 07/31/2022 Lab Laboratory Medicine Tony Rubalcava M. B., ChBurke, MDebra [address] [place] [address] [phone] (Wo rk) 07/31/2022 Office Visit Transplant Tony Rubalcava M.B., ChBurke, MDebra [address] [place] [address] [phone] (Wo rk) 07/31/2022 Appointment Radiology Tony Rubalcava M.B., ChBurke, MDebra [address] [place] [address] [phone] (Wo rk) 08/01/2022 Office Visit Transplant Tony Rubalcava M.B., Mukund [place] [address] [place], [place] [phone] (Wo rk) 08/01/2022 Clinical Support Transplant Tony Rubalcava M.B., Mukund [place] [address] [place], [place] [phone] (Wo rk) documented as of this encounter Visit Diagnoses Diagnosis Transplant Renal (HCC) - Primary documented in this encounter Additional Health Concerns Assessment Noted Time PHQ-9 Depression Total Score: 3 04/07/2021 9:37 AM CDT documented as of this encounter Care Teams Wanigan Clerk Relationship Specialty Start Date End Date Elsewhere, Pcp PCP - General 09/17/19 documented as of this encounter
--- OUTSIDE RECORDS SUMMARY | 2022-05-25 13:01 | XMS_ITS | Encounter Summary ---
:1960 Author Organization [facility] Address [address] [place] [address] Care Team Providers Name Role Phone Elsewhere, Pcp Primary Care Provider Unavailable Encounter Details Date Type Department Care Team Description 04/07/2022 Specialty Pharmacy [facility] Elena Lal Transplant Renal [address] Domínguez, Pharm.D. ([facility] (Primary Dx) [address] [place] [phone] Social History Tobacco Use Types Packs/Day Years [...] How often do you attend pentecostal or christianity 1 to 4 times per [...] this encounter Miscellaneous Notes Telephone Encounter - Elena Lal, Pharm.D. - 04/07/2022 3:00 PM CDT SUBJECTIVE REASON FOR ENCOUNTER This patient was not personally interviewed, counseled or examined for this encounter. Encounter started for the purpose of establishing a medication reassessment timeline for [facility]. HISTORY OF PRESENT ILLNESS Ms. Shabnam Wray is a 61 y.o. female who received a solid organ transplant: 04/06/2022 (Kidney), 04/28/2008 (Kidney) donor at [facility] in [place]. OBJECTIVE CMV: D-/R+ ASSESSMENT / PLAN 1. Medication counseling During the transition of care from the inpatient to the outpatient setting, the [facility] works in collaboration with inpatient and medication therapy management pharmacists as well as transplant center providers to assure proper medication counseling and education of new transplant patients. Please refer to MTM/educational pharmacy visit documentation within [facility] for further detail. Specialty pharmacy contact information and medication disposal information provided in the patient 'Welcome Packet'. 2. Infectious Disease Prophylaxis (possible stop dates by protocol, subject to change depending on clinical scenario.): Valcyte 3 months (based on CMV status) No antifungal indicated Bactrim 6 months Continued steroid use 3. Goals of therapy Promote medication adherence for optimal immunosuppression and prevention of rejection. Monitor and stop prophylactic anti-infectives by protocol. Ongoing evaluation of newly prescribed therapies for safety and appropriateness. The patient has decided to use the [facility]. This patient does not meet the definition of high risk by [facility]SP definition. Follow-up: 1 month(s) Elena Lal Pharm.D. documented in this encounter Plan of Treatment Upcoming Encounters Date Type Specialty Care Team Description 06/01/2022 Telemedicine Pharmacy An Nicholas APRN, C.N.P., D.N.P., M.S.N. [address] [place] [phone] (Nicolas wen) 07/31/2022 Lab Laboratory Medicine Tony Rubalcava M. B., ChBurke, MElvia. [address] [place] [address] [phone] (Nicolas wen) 07/31/2022 Lab Laboratory Medicine Tony Rubalcava M. B., ChDaviBDavi, MDaviD. [address] [place] [address] [phone] (Nicolas wen) 07/31/2022 Office Visit Transplant Tony Rubalcava M.B., ChDaviBDavi, MDaviD. [address] [place] [address] [phone] (Nicolas wen) 07/31/2022 Appointment Radiology Tony Rubalcava M.B., ChDaviBDavi, MDaviD. [address] [place] [address] [phone] (Nicolas wen) 08/01/2022 Office Visit Transplant Tony Rubalcava M.B., ChDaviB., M.D. [address] [place] [address] [phone] (Nicolas wen) 08/01/2022 Clinical Support Transplant Tony Rubalcava M.B., Mukund [place] [address] [place] [address] [phone] (Wo rk) documented as of this encounter Visit Diagnoses Diagnosis Transplant Renal (HCC) - Primary documented in this encounter Additional Health Concerns Assessment Noted Time PHQ-9 Depression Total Score: 3 04/07/2021 9:37 AM CDT documented as of this encounter Care Teams Instrument And Electrical Technician Relationship Specialty Start Date End Date Elsewhere, Pcp PCP - General 09/17/19 documented as of this encounter
--- OUTSIDE RECORDS SUMMARY | 2022-05-25 13:01 | XMS_ITS | Encounter Summary ---
:1960 Author Organization [facility] Address [address] [place] [address] Care Team Providers Name Role Phone Elsewhere, Pcp Primary Care Provider Unavailable Reason for Referral Transplant (Routine) - Closed Specialty Diagnoses / Procedures Referred By Contact Refer red To Contact Transplant Surgery / [facility] Transplant Mukund Gomez 200 [place] [address] Referral ID Status Reason Start Date Expiration Date Visits Requ ested Visits Authorized [id number] Closed 04/11/2022 04/10/2025 1 1 Reason for Visit Transplant (Routine) - Closed Specialty Diagnoses / Procedures Referred By Contact Refer red To Contact [facility] APPLICATION SUPPORT ENGINEER, C.N.P., D.N.P., M.S.N. [address] [place] [phone] Referral ID Status Reason Start Date Expiration Date Visits Requ ested Visits Authorized [id number] Closed 04/07/2022 04/06/2025 1 1 Encounter Details Date Type Department Care Team Description 04/11/2022 Office Visit Tony [facility] Micheal Smith, Ch.B., ([facility]) (Prima ry Dx) Transplantation and MDebra Clinical Regeneration in 200 [place], [place] 200 [facility] [[email or web address] [id number] [place] [address] [phone] Social History Tobacco Use Types Packs/Day Years [...] 12/23/2021 relatives? How often do you attend yazidism or yarsani 1 to 4 times per year 12/23/2021 services? Do you belong to any clubs or organizations such No 12/23/2021 as yazidism groups, unions, fraternal or athletic groups, or [...] place to sleep or slept in a fci (including now)? Education Answer Date Recorded What is the highest level of school you have GED or equivale nt 01/26/2019 completed or the highest degree you have received? Sex Assigned at Date Recorded Female 12/23/2021 4:18 AM CDT documented as of this encounter Progress Notes Patricia Cox M.D. - 04/11/2022 9:00 AM CDT Kidney/Pancreas Transplant Progress Note SUBJECTIVE [...] thrombosis. Patient returns today for close post-transplant monitoring; Since last clinic visit, patient reportsfeeling well. The patient got good soft bowel movement yesterday. She has made urine 100 mL/hour butsometimes up to 250 mL/hour. Her blood pressure at home was 170-180/80-90. This morning at the clinic her blood pressure is 133/77. His stent is not attached and she does have ureteral stent for her previous allograft in the past. She will have a follow-up for cystoscopy on 04/27/2022. She has been beentaking tacrolimus 4 mg p.o. b.i.d. She is here with her friend who flew from [place]. Current Outpatient Medications on File Prior to [...] function. Stop date: 07/08/22 30 tablet 2 Current Facility-Administered Medications on File Prior to Visit Medication Dose Route Frequency Provider Last Rate Last Admin [COMPLETED] basiliximab 20 mg in NaCl 0.9% IVPB (SIMULECT) 20 mg intravenous Once An Nicholas APRN, C.N.P., D.N.P., M.S.N. Stopped at 04/10/22 0926 [DISCONTINUED] NaCl 0.9% infusion 10-250 mL/hr intravenous PRN An Nicholas APRN, C.N.P., D.N.P., M.S.N. Stopped at 04/10/22 0927 [DISCONTINUED] sodium chloride 0.9 % injection 3 mL 3 mL intra-catheter PRN An Nicholas APRN,C.N.P., D.N.P., M.S.N. 3 mL at 04/10/22 0839 OBJECTIVE VITAL SIGNS Temperature: [35.7 ??C] 35.7 ??C Blood Pressure: (133)/(77) 133/77 Height: [165.4 cm] 165.4 cm Weight: [107 kg] 107 kg BSA (Calculated - sq m): [2.22 sq meters] 2.22 sq meters BMI (Calculated): [39.3 kg/m??] 39.3 kg/m?? Pulse Rate: [66] 66 General: awake, alert, oriented, in no acute distress Heart:normal and regular rate and rhythm Lung: clear to auscultation Abdomen: healing well, no significant drainage, no dehiscence, mild erythema and bruises around incision, moderate tenderness around the incision, no leaking. 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 Hypervolemic. Making good urine output. Creatinine 7.46 from 7.22. Creatinine is not changing that much. We will continue observe very closely. Plan: - The patient will have follow-up with us on 04/13/2022. We will get CBC with differential, renal function panel, magnesium, phosphorus, tacrolimus level. - if serum creatinine remained increasing, we may consider further investigation. - We will start furosemide 80 mg p.o. b.i.d. the patient was advised to hold furosemide if her weight is down more than 5 lb. #3 Incision/urinary Mild erythema and bruises around incision, moderate tenderness around the incision, no leaking. We will continue observing for now. #4 Immunosuppression, Basiliximab induction Maintenance immunosuppression includes tacrolimus, MMF, and steroids. Tacrolimus trough goal 8-10 first month and 6-8 thereafter. Tacrolimus level on 04/09/2022 was 4.8 and she is currently taking 4 mg p.o. BID. Levels pending this morning and I will notify patient with dose change. #5 Infection prophylaxis, CMV: D-/ R+, EBV D+/R+ Continue Valcyte x3 month, Bactrim x6 month. #6 Hypertension #7 Cardiovascular Blood pressure in the clinic today at 133/77. Patient is taking nebivolol 5 mg p.o. daily for blood pressure. We will continue this regimen for now. The blood pressure is likely improved after diuresis. If the blood pressure remains high we may consider adding amlodipine 5 mg p.o. daily. #8 Electrolyte management (hypomagnesemia, hyperkalemia, hypophosphatemia) Bicarbonate 21 from 18. No hyperkalemia. Calcium 8.7, magnesium 2.3. #9 Hematology (anemia secondary to CKD, anemia secondary iron deficiency, etc.) Hemoglobin 9.4 from 9.1. We will continue observing for now. #10 Disposition We will plan on seeing patient on 04/13/2022 with lab work #11 History of chronic [...] blood/lymph issues: Yes No urinary/reproductive issues: Yes Tony Rubalcava M.B., Shashi Otoole. - 04/11/2022 9:00 AM CDT I personally saw and evaluated the patient. I reviewed the history, physical exam and plan of care documented by Dr. Cox and agree with his documentation with the following additions: Volume overloaded. 7kg up. Diuretics and monitor tacrolimus. No change in creatinine. Salt restrict. Daily weights at home. Hold furosemide if weight loss >5lbs in 24hrs. Fluid 32-40floz limit. Return with labs. Rising tacrolimus -- no change. Recent Labs 04/11/22 0729 04/09/22 0527 04/08/22 0648 04/07/21 0843 02/28/21 0530 HGB 9.4 L 9.1 L 9.0 L < > -- WBC 7.6 10.3 H 9.7 H < > -- NA 140 131 L 130 L < > -- CREATININE 7.46 H 7.22 H 7.26 H < > -- EGFR <15 L -- -- -- -- TACROLIMUS 7.5 4.8 L -- -- 10.9 < > = values in this interval not displayed. Recent Labs 04/11/22 0729 04/09/22 0527 04/08/22 0648 04/07/22 0626 04/06/22 2349 04/06/22 1528 CALCIUM 8.7 L 8.5 L 8.4 L 8.1 L < > 8.8 LABPHOS -- 6.5 H -- 5.5 H 5.5 H -- 4.3 MG 2.3 2.0 -- 1.5 L -- -- < > = values in this interval not displayed. documented in this encounter Plan of Treatment Upcoming Encounters Date Type Specialty Care Team Description 06/01/2022 Telemedicine Pharmacy An Nicholas APRN, C.N.P., D.N.P., M.S.N. [address] [place] [phone] (Wo rk) 07/31/2022 Lab Laboratory Medicine Tony Rubalcava M. B., Sydnie, Mukund [address] [place] [phone] (Wo rk) 07/31/2022 Lab Laboratory Medicine Tony Rubalcava M. B., Sydnie, Mukund [address] [place] [phone] (Wo rk) 07/31/2022 Office Visit Transplant Tony Rubalcava M.B., Sydnie, Mukund [address] [place] [phone] (Wo rk) 07/31/2022 Appointment Radiology Tony Rubalcava M.B., Sydnie, Mukudn [address] [place] [phone] (Wo rk) 08/01/2022 Office Visit Transplant Tony Rubalcava M.B., Sydnie, MDebra [address] [place] [phone] (Wo rk) 08/01/2022 Clinical Support Transplant Tony Rubalcava M.B., Sydnie, MDebra [address] [place] [phone] (Wo rk) Scheduled Referrals Name Type Priority Associated Order Schedule Diagnoses Transplant Kidney / Outpatient Referral Routine E xpected: pancreas office 04/13/2022, visit (clinic) Expires: 07/12/2023 documented as of this encounter Results Tacrolimus, B (04/13/2022 8:17 AM CDT) P athologist Signature Tacrolimus, B 6.5 5.0-15.0 04/13/2022 [facility] (Trough) 12:55 PM CDT ng/mL Comment: ----ADDITIONAL [...] and its performa nce characteristics determined by [facility] in a manner consistent with CLIA requirements. This test has not been cleared or approved by the [place] d and Drug Administration. Specimen Anatomical Collection Method Collection Time Receive d Time (Source) Location / / Volume Laterality Blood (Blood, 04/13/2022 8:17 AM 04/13/20 22 Venous) CDT 10:29 AM CDT Patricia Cox M.D. LAB BLOOD NON ADD-ON Performing Organization Address City/[facility] Code Phon e Number [facility] [address] [place], [place] [address] [facility] CENTER [facility] [place] [address] Laboratory Medicine and Pathology [address] [place] (ABNORMAL) Magnesium (04/13/2022 8:17 AM CDT) P athologist Signature Magnesium, S 2.5 (H) 1.7 - 2.3 04/13/2022 DTL mg/dL 9:38 AM CDT Specimen Anatomical Collection Method Collection Time Receive d Time (Source) Location / / Volume Laterality Blood (Blood, 04/13/2022 8:17 AM 04/13/20 22 8:47 Venous) CDT AM CDT Patricia Cox M.D. LAB BLOOD ADD-ON Performing Organization Address City/[facility] Code Phon e Number [facility] LABORATORIES - [address] [place], [place] [address] [facility] [place] [address] Laboratories-[facility] [address] (ABNORMAL) Renal Function Panel [...] Organization Address City/State/ZIP Code Phon e Number [facility]ORATORIES - [address] [place], [place] [address] [facility] [place] [address] [facility] [address] (ABNORMAL) CBC with Differential, Blood (04/13/2022 8:17 AM CDT) [facility] Method Time Signature Hemoglobin 8.8 (L) 11.6 - 04/13/2022 [facility] 15.0 g/dL 8:59 AM CDT Hematocrit 28.5 (L) 35.5 - 04/13/2022 [facility] 44.9 % 8:59 AM CDT Erythrocytes 2.97 (L) 3.92 - 04/13/2022 [facility] 5.13 8:59 AM CDT x10(12)/L MCV 96.0 78.2 - 04/13/2022 PM 97.9 fL 8:59 AM CDT RBC Distrib Width 15.1 12.2 - 04/13/2022 [facility] 16.1 % 8:59 AM CDT Platelet Count 140 (L) 157 - 371 04/13/2022 PM x10(9)/L 8:59 AM CDT Leukocytes 7.9 3.4 [...] CDT x10(9)/L Basophils <0.03 0.01 - 04/13/2022 PM 0.08 8:59 AM CDT x10(9)/L Specimen Anatomical Collection Method Collection Time Receive d Time (Source) Location / / Volume Laterality Blood (Blood, 04/13/2022 8:17 AM 04/13/20 8:47 Venous) CDT AM CDT Patricia Cox M.D. LAB BLOOD ADD-ON Performing Organization Address City/State/ZIP Code Phon e Number [facility] - [address] [place], [place] [address] [place] [address] Laboratories-[facility] [address] documented in this encounter Visit Diagnoses Diagnosis Transplant Renal (HCC) - Primary documented in this encounter Additional Health Concerns Assessment Noted Time PHQ-9 Depression Total Score: 3 04/07/2021 9:37 AM CDT documented as of this encounter Care Teams Freight Router Relationship Specialty Start Date End Date Elsewhere, Pcp PCP - General 09/17/19 [facility] External Provider Laboratory Medicine 04/11/22 04/24/22 documented as of this encounter
--- OUTSIDE RECORDS SUMMARY | 2022-05-25 13:01 | XMS_ITS | Encounter Summary ---
:1960 Author Organization [facility] Address [address] [place] [address] Care Team Providers Name Role Phone Elsewhere, Pcp Primary Care Provider Unavailable Reason for Referral Specialty Diagnoses / Procedures Referred By Contact Refer red To Contact [facility] Spiritism [address] [phone] Referral ID Status Reason Start Date Expiration Date Visits Requ ested Visits Authorized Specialty Diagnoses / Procedures Referred By Contact Refer red To Contact [facility] Gunner Michaels [address] [phone] Referral ID Status Reason Start Date Expiration Date Visits Requ ested Visits Authorized utpatient (Routine) - Authorized Specialty Diagnoses / Procedures Referred By Contact Refer shankar To Contact An Humphrey APRN, C.N.PDavi, [facility] D.N.P., M.S.N. [address] [place] [address] Referral ID Status Reason Start Date Expiration Date Visits V isits Requested Authorized [id number] Authorized 04/07/2022 04/06/2025 1 1 ransplant (Routine) - Closed Specialty Diagnoses / Procedures Referred By Contact Refer red To Contact Transplant Surgery / An Nicholas, [facility] Transplant QUALITY CONTROL TESTER, C.N.P., Michelle.N.P., M.S.N. [address] [place] [phone] Referral ID Status Reason Start Date Expiration Date Visits Requ ested Visits Authorized [id number] Closed 04/07/2022 04/06/2025 1 1 ransplant (Routine) - Closed Specialty Diagnoses / Procedures Referred By Contact Refer red To Contact Transplant Surgery / An Nicholas, [facility] Transplant QUALITY CONTROL TESTER, C.N.P., D.N.P., M.S.N. [address] [place] [phone] Referral ID Status Reason Start Date Expiration Date Visits Requ ested Visits Authorized [id number] Closed 04/07/2022 04/06/2025 1 1 ransplant (Routine) - Closed Specialty Diagnoses / Procedures Referred By Contact Refer red To Contact Transplant Surgery / An Nicholas [facility] Transplant CHRISTOPHER C.N.P., Michelle.N.P., M.S.N. [address] [place] [phone] Referral ID Status Reason Start Date Expiration Date Visits Requ ested Visits Authorized [id number] Closed 04/07/2022 04/06/2025 1 1 Encounter Details Date Type Department Care Team Description 04/07/2022 Orders Only Ata Ha, [facility] for Transplantation Dara Belle R.N., ([facility]) (Primary Dx) and Clinical Regeneration CCTN in [facility] [phone] (Work) [place] [address] Social History Tobacco Use Types Packs/Day [...] 12/23/2021 relatives? How often do you attend yazidi or sikh 1 to 4 times per year 12/23/2021 services? Do you belong to any clubs or organizations such No 12/23/2021 as yazidi groups, unions, fraternal or athletic groups, or [...] An Nicholas APRN, C.NDaviPDavi, D.N.P., M.S.N. [address] [place] [phone] (Wo rk) 07/31/2022 Lab Laboratory Medicine Tony Rubalcava M. B., Sydnie, Mukund [address] [place] [phone] (Wo rk) 07/31/2022 Lab Laboratory Medicine Tony Rubalcava M. B., Sydnie, Mukund [address] [place] [phone] (Wo rk) 07/31/2022 Office Visit Transplant Tony Rubalcava M.B., Sydnie, Mukund [address] [place] [phone] (Wo rk) 07/31/2022 Appointment Radiology Tony Rubalcava M.B., Sydnie, Mukund [address] [place] [phone] (Wo rk) 08/01/2022 Office Visit Transplant Tony Rubalcava M.B., Sydnie, Mukund [address] [place] [phone] (Wo rk) 08/01/2022 Clinical Support Transplant Tony Rubalcava M.B., Sydnie, Mukund [address] [place] [phone] (Wo rk) Scheduled Referrals Name Type Priority Associated Order Schedule Diagnoses Transplant Kidney Outpatient Referral Routine Exp ected: office visit 04/10/2022, (clinic) Expires: 07/08/2023 Transplant Kidney Outpatient Referral Routine Exp ected: office visit 04/10/2022, (clinic) Expires: 07/08/2023 Transplant Kidney Outpatient Referral Routine Exp ected: office visit 04/14/2022 (clinic) (Approximate), Expires: 07/08/2023 Pharmacy - Outpatient Referral Routine Expected : Medication therapy management - (Approximate), transplant office Expires: visit (clinic) 07/08/2023 Transplant - Kidney Outpatient Referral Routine Transplant Jack al Expected: pancreas liver post ([facility]) 04/21/20, education visit Expires: (clinic) 07/08/2023 Transplant - Post Outpatient Referral Routine Transplant Renal Expected: K/P dismissal ([facility]) 04/24/2022, education visit Expires: 07/08/2023 documented as of this encounter Results Tacrolimus, B (04/11/2022 7:29 AM CDT) athologist Signature Tacrolimus, B 7.5 5.0-15.0 04/11/2022 [facility] (Trough) 1:01 PM CDT ng/mL Comment: [...] performa nce characteristics determined by [facility] in a manner consistent with CLIA requirements. This test has not been cleared or approved by the U.[place] d and Drug Administration. Specimen Anatomical Collection Method Collection Time Receive d Time (Source) Location / / Volume Laterality Blood (Blood, 04/11/2022 7:29 AM 04/11/20 8:50 Venous) CDT AM CDT An Nicholas APRN, C.N.P., D.N.P., M.S.N. LAB BLOOD NON ADD-ON Performing Organization Address City/[facility]/ZIP Code Phon e Number [facility] [address] [place], [place] [address] [facility] [place] [address] Laboratory Medicine and Pathology [address] [place] Magnesium (04/11/2022 7:29 AM CDT) P athologist Signature Magnesium, S 2.3 1.7 - 2.3 04/11/2022 DTL mg/dL 8:57 AM CDT Specimen Anatomical Collection Method Collection Time Receive d Time (Source) Location / / Volume Laterality Blood (Blood, 04/11/2022 7:29 AM 04/11/20 8:04 Venous) CDT AM CDT Fracisco Evans APRN.N.P., Michelle.N.P., M.S.N. LAB BLOOD ADD-ON Performing Organization Address [facility] Phon e Number [facility] - [address] [place], [place] [address] [facility] [place] [address] [facility] [address] [facility] (ABNORMAL) CBC without Differential (04/11/2022 7:29 AM CDT) Patholo gist Method Time Signature Hemoglobin 9.4 (L) [...] 7:43 Venous) CDT AM CDT An Nicholas APRN, C.N.P., D.N.P., M.S.N. LAB BLOOD ADD-ON Performing Organization Address City/State/ZIP Code Phon e Number [facility] - [address] [place], [place] [address] [facility] [place] [address] Laboratories[facility] [address] documented in this encounter Visit Diagnoses Diagnosis Transplant Renal (HCC) - Primary documented in this encounter Additional Health Concerns Assessment Noted Time PHQ-9 Depression Total Score: 3 04/07/2021 9:37 AM CDT documented as of this encounter Care Teams General Contractor Relationship Specialty Start Date End Date Elsewhere, Pcp PCP - General 09/17/19 documented as of this encounter
--- OUTSIDE RECORDS SUMMARY | 2022-05-25 13:01 | XMS_ITS | Encounter Summary ---
:1960 Author Organization [facility] Address [address] [place] [address] Care Team Providers Name Role Phone Elsewhere, Pcp Primary Care Provider Unavailable Reason for Visit Reason Comments Pre-visit Intake Encounter Details Date Type Department Care Team Description 04/07/2022 Clinical Communication Visit Review in Pr e-visit Intake [place], [place] 200 [place], [place] [address] Social History Tobacco Use Types Packs/Day Years [...] How often do you attend anglican or amish 1 to 4 times per [...] An Nicholas APRN C.N.P., D.N.P., M.S.N. [address] [place] [address] [phone] (Nicolas wen) 07/31/2022 Lab Laboratory Medicine Tony Rubalcava M. B., ChBurke, MElvia. [address] [place] [address] [phone] (Nicolas wen) 07/31/2022 Lab Laboratory Medicine Tony Rubalcava M. B., ChBurke, MDaviD. [address] [place] [address] [phone] (Nicolas wen) 07/31/2022 Office Visit Transplant Tony Rubalcava M.B., ChDaviBDavi, MDaviDDavi [address] [place] [phone] (Nicolas wen) 07/31/2022 Appointment Radiology Tony Rubalcava M.B., Ch.BDavi, MDaviD. [address] [place] [address] [phone] (Nicolas wen) 08/01/2022 Office Visit Transplant Tony Rubalcava M.B., Mukund Otoole [address] [place], [place] [phone] (Wo rk) 08/01/2022 Clinical Support Transplant Tony Rubalcava M.B., Mukund Otoole [address] [place], [place] [address] [phone] (Wo rk) documented as of this encounter Visit Diagnoses Not on filedocumented in this encounter Additional Health Concerns Assessment Noted Time PHQ-9 Depression Total Score: 3 04/07/2021 9:37 AM CDT documented as of this encounter Care Teams Lead Installer Relationship Specialty Start Date End Date Elsewhere, Pcp PCP - General 09/17/19 documented as of this encounter
--- OUTSIDE RECORDS SUMMARY | 2022-05-25 13:02 | XMS_ITS | Encounter Summary ---
:1960 Author Organization [facility] Address [address] [place] [address] Care Team Providers Name Role Phone Elsewhere, Pcp Primary Care Provider Unavailable Encounter Details Date Type Department Care Team Description 03/17/2022 Orders Only Sary Anderson Kidney Disease Stage 5 GFR Less Than 15 Dialysis Dependent (HCC) (Primary Dx); [facility], R.N. Pretransplant Recipient Evaluation Exam; Transplantation and [address] Abnormal Finding Of Blood Chemistry Unsp ecified ; Clinical Regeneration in [place], [place] Fa tigue ; [place], [place] [address] Human Immunodeficiency Virus Screening ; [address] [facility] [phone] [place] [address] (Work) [phone] Social History Tobacco Use Types Packs/Day Years [...] How often do you attend lutheran or yarsani 1 to 4 times per [...] An Nicholas APRN, C.N.P., D.N.P., M.S.N. [address] [place] [address] [phone] (Wo rk) 07/31/2022 Lab Laboratory Medicine Tony Rubalcava M. B., ChBurke, MElvia. [address] [place] [address] [phone] (Wo rk) 07/31/2022 Lab Laboratory Medicine Tony Rubalcava M. B., ChBurke, MDebra [address] [place] [address] [phone] (Wo rk) 07/31/2022 Office Visit Transplant Tony Rubalcava M.B., Sydnie, MDebra [address] [place] [address] [phone] (Wo rk) 07/31/2022 Appointment Radiology Tony Rubalcava M.B., Mukund Otoole [address] [place] [address] [phone] (Wo rk) 08/01/2022 Office Visit Transplant Tony Rubalcava M.B., Mukund Otoole [address] [place] [address] [phone] (Wo rk) 08/01/2022 Clinical Support Transplant Tony Rubalcava M.B., Mukund Otoole [address] [place] [address] [phone] (Wo rk) documented as of this encounter Visit Diagnoses Diagnosis Chronic Kidney Disease Stage 5 GFR Less Than 15 Dialysis Dependent (HCC) - Primary Pretransplant Recipient Evaluation Exam Abnormal Finding Of Blood Chemistry Unsp ecified Fatigue Human Immunodeficiency Virus Screening Hypertension Essential Primary documented in this encounter Additional Health Concerns Assessment Noted Time PHQ-9 Depression Total Score: 3 04/07/2021 9:37 AM CDT documented as of this encounter Care Teams Toll Ticket Clerk Relationship Specialty Start Date End Date Elsewhere, Pcp PCP - General 09/17/19 documented as of this encounter
--- OUTSIDE RECORDS SUMMARY | 2022-05-25 13:02 | XMS_ITS | Encounter Summary ---
:1960 Author Organization [facility] Address [address] [place] [address] Care Team Providers Name Role Phone Elsewhere, Pcp Primary Care Provider Unavailable Reason for Visit Reason Comments waitlist appointment Encounter Details Date Type Department Care Team Description 03/17/2022 Clinical Sary Anderson [facility] for A, R.N. appointment Transplantation and [address] [facility] in [facility], [address] [place] [phone] Social History Tobacco Use Types Packs/Day Years [...] 12/23/2021 relatives? How often do you attend holiness or bahai 1 to 4 times per year 12/23/2021 services? Do you belong to any clubs or organizations such No 12/23/2021 as holiness groups, unions, fraternal or athletic groups, or [...] encounter Miscellaneous Notes Telephone Encounter - Elena Hollis - 03/17/2022 4:48 PM CDT Patient is due for [facility] appointments. Please advise on financial approval Please route to : RST TXP [facility] SCHEDULING documented in this encounter Plan of Treatment Upcoming Encounters Date Type Specialty Care Team Description 06/01/2022 Telemedicine Pharmacy An Nicholas APRN, C.N.P., D.N.P., M.S.N. [address] [place] [address] [phone] (Nicolas wen) 07/31/2022 Lab Laboratory Medicine Tony Rubalcava M. B., Ch.B., M.D. [address] [place] [address] [phone] (Nicolas wen) 07/31/2022 Lab Laboratory Medicine Tony Rubalcava M. B., Ch.B., M.D. [address] [place] [address] [phone] (Nicolas wen) 07/31/2022 Office Visit Transplant Tony Rubalcava M.B., [place], [place] [address] [place] [address] [phone] (Wo rk) 07/31/2022 Appointment Radiology Tony Rubalcava M.B., [place], [place] [address] [place] [address] [phone] (Wo rk) 08/01/2022 Office Visit Transplant Tony Rubalcava M.B., [place], [place] [address] [place] [address] [phone] (Wo rk) 08/01/2022 Clinical Support Transplant Tony Rubalcava M.B., [place], [place] [address] [place] [address] [phone] (Wo rk) documented as of this encounter Visit Diagnoses Not on filedocumented in this encounter Additional Health Concerns Assessment Noted Time PHQ-9 Depression Total Score: 3 04/07/2021 9:37 AM CDT documented as of this encounter Care Teams Coding Analyst Relationship Specialty Start Date End Date Elsewhere, Pcp PCP - General 09/17/19 documented as of this encounter
--- OUTSIDE RECORDS SUMMARY | 2022-05-25 13:02 | XMS_ITS | Encounter Summary ---
:1960 Author Organization [facility] Address [address] [place] [address] Care Team Providers Name Role Phone Elsewhere, Pcp Primary Care Provider Unavailable Encounter Details Date Type Department Care Team Description 04/06/2022 Surgery RST CESAR YOUNG OR Nehemias Felipe, TRANSPLANT KIDNEY - [address] [facility] [place] [address] [address] [facility] DONOR WITH BACK TABLE [phone] [place], [place] PREP KIDNEY [place] [id number] Social History Tobacco Use Types Packs/Day Years [...] 12/23/2021 relatives? How often do you attend uatsdin or anabaptist 1 to 4 times per year 12/23/2021 services? Do you belong to any clubs or organizations such No 12/23/2021 as uatsdin groups, unions, fraternal or athletic groups, or [...] Sign Reading Time Taken Comments Blood Pressure 179/97 04/06/2022 11:54 PM CDT Pulse 66 04/06/2022 11:54 PM CDT Temperature 36.5 ??C (97.7 ??F) 04/06/2022 11:04 PM CDT Respiratory Rate 17 04/06/2022 11:54 PM CDT Oxygen Saturation 99% 04/06/2022 11:54 PM CDT Inhaled Oxygen Concentration - - Weight 100 kg (221 lb 5.5 oz) 04/06/2022 6:30 PM CDT Height 165.4 cm (5' 5.12) 04/06/2022 2:39 PM CDT Body Mass Index 39.19 04/07/2022 10:22 AM CDT documented in this encounter Discharge Summaries Sam Miller M.D. - 04/09/2022 11:41 AM CDT DATE OF ADMISSION: 04/06/2022 DATE OF DISCHARGE: 04/09/22 Discharge Attending: Tony Rubalcava [facility] COURSE Ms. Shabnam Wray is a 61 y.o. female admitted to the [facility] kidney/pancreas transplant service for a Donor Kidney [...] Appointments 04/10/2022 8:15 AM INF RN NURSE 01 ROEI Infusion Therapy 04/11/2022 7:20 AM LAB BLOOD ROCH Laboratory Medicine 04/11/2022 8:30 AM TXP POST KIDNEY ROCH 10 Transplant 04/11/2022 9:00 AM Tony Rubalcava M.B., Shashi Otoole. Transplant 04/12/2022 9:00 AM Sherry Judd P.A.-Milli Vascular Medicine 04/14/2022 8:30 AM Jennifer Urbina L.I.C.S.W., M.S.W. Transplant 04/21/2022 10:00 AM RM EDU ROCH 10 TXP Transplant 04/27/2022 8:30 AM RM PROC CYSTO 02 ROGO URO Urology 05/01/2022 10:00 AM EDU ROCH 10 TXP Transplant 05/12/2022 11:45 AM Lydia Crowley P.A.-Fracisco., P.A. General Surgery For appointment details refer [...] Instructions Discharge Instr - Dara Ley M.S., RDN, LD - 04/08/2022 12:30 PM CDT NUTRITION Nutrition dismissal summary completed by: Dara Melo M.S., RDN, LD Date Completed: 04/08/2022 Phone contact: Height: 165.4 cm Weight: 107 kg Admission Weight: 103 kg BMI (Calculated): 39.2 kg/m?? Diet Order: General ESTIMATED NEEDS: Total Calorie Needs: 7043-5884 kcal/d calories/day Method to Estimate Energy Needs: Saldaña-Ellinwood (Basal + 20%) Weight Used for Equation [...] Nutrition (1:1 or class) before dismissed from [place] and on return at 3 to 4 month check-up. AttachmentsThe following attachments cannot be sent through Care Everywhere. Magnesium Oxide (By mouth) ([place] Islander)Multivitamins, Adult Formula (By mouth) ([place]er)Pantoprazole (By mouth) ([place] Islander)Sulfamethoxazole/Trimethoprim (By mouth) ([place]er)Senna (By mouth) ([place] Islander)Valganciclovir (By mouth) ([place]) documented in this encounter Medications at Time [...] this encounter Progress Notes Tony Rubalcava M.B., Mukund Otoole - 04/09/2022 11:35 AM CDT I personally [...] 04/06/22 1830 100 kg I/O 04/07 0000 04/07 2359 04/08 0000 04/08 2359 04/09 0000 04/09 2359 P.O. 2019 890 300 Crystalloid Bolus 1250 Maintenance IV 1330.5 Intermittent Medications 510 Total Intake(mL/kg) 5110.5 (51.1) 890 (8.3) 300 (2.8) Urine (mL/kg/hr) 1935 (0.8) 1850 (0.7) 1625 (1.3) Total Output 19340 1625 Net +3175.5 -960 -1325 Physical Exam General: well-appearing Neuro: alert and oriented Heart: Regular HR. Edema: mild Lungs: No oxygen requirement. Breathing not labored talking in full sentences Abdomen: Soft Surgical Wound:Clean, dry, and intact DIAGNOSTIC FINDINGS I personally reviewed all radiology and labs from the past 24 hrs. Recent Labs 04/09/22 0504/08/22 0648 04/07/22 0626 04/07/21 0843 02/28/21 0530 [...] hospital are identified at this time. Kelly Santos Pharm.D., R.Ph. Tony Rubalcava M.B., Sydnie, M.Michelle. - 04/08/2022 2:59 PM CDT I [...] We have let Dr. Martínez know (her crop picker) of her transplant. Technically she could be dismissed from hospital today, but we are waiting for her caregiver to come into town tomorrow and can be dismissed tomorrow evening. Appreciative of Social Work, who have arranged [employer] funding for staying in a hotel over Sunday night until they can get to [facility]. She knows her medications. She is on a standard taper of prednisone. She has tacrolimus level pending for tomorrow morning. Ms. Wrya agrees with this plan. #1 Chronic Kidney Disease NOS #2 Hyperlipidemia #3 Depression Major One Episode Full Remission (HCC) #4 Chronic Kidney Disease Stage 5 Glomerular Filtration Rate Less Than 15 (HCC) #5 Transplant Renal ([facility]) #6 Hypertension And Chronic Kidney Disease Stage [...] (Primary) NOS Sleep Apnea 2016 Transplant Renal ([facility]) Completed visit with patient today as part [...] 98.4 kg Estimated Needs: Total Calorie Needs: 3368-3385 kcal/d calories/day Method to Estimate Energy Needs: Saldaña-Ellinwood (Basal + 20%) Weight Used for Equation [...] about patient's nutritional care please contact pager [phone] on weekdays or [phone] on weekends/holidays. Patricia Cox M.D. - 04/08/2022 [...] Rounds: Reviewed recommendations of Transplant Surgery, Nursing, Mental Hygienist, Pharmacist, Heavy Mobile Equipment Repairer, Case Management and Hospital Coordinator. Nicole [...] are identified at this time. Nicole Segundo, PharmElvia., R.Ph. [phone] Dara Acosta R.N., [facility] - 04/07/2022 11:46 AM CDT CHIEF COMPLAINT / PURPOSE OF VISIT Multidisciplinary Rounds / Inpatient nurse coordinator visit IMPRESSION / REPORT / PLAN Kidney transplant multidisciplinary hospital rounds were conducted on 04/07/22. Please refer to the wound care center consultant note dated 04/07/22 for the hospital care follow- up plan. Attendees Transplant Surgeon: Not present but available by pager Transplant Detasseling Crew Supervisor: Dennis Rubalcava MD MANAGER COMMUNITY DEVELOPMENT / PA: Alvaro Nicholas, GROUTER HELPER, RN DISEASE MANAGEMENT, DNP Transplant Surgery Fellow: Not present but available by pager Nephrology Fellow: Marietta Martins Inpatient RN Table Cover Folder: Fiona Acosta, RN, CCTN Inpatient Pharmacy: Dennis Segundo, RaffaeleD, [facility] Clinical Dietitian: Dennis Almaguer RDN, LD Social Work/Endoscopy Tech:Alvaro Lewis RN, Endoscopy Tech Inpatient RN: Jennifer Lyles RN, [facility] Guests: none I had the opportunity to visit Mrs. Wray in the inpatient care unit and introduced myself to her as the inpatient sales traineealumni coordinator. I reviewed my role within the multidisciplinary team, providing context by noting that I take on the role of her outpatient alumni coordinator during inpatient hospitalization. I also reviewed the roles of other team members such as the hospital RN, physicians, and MANAGER COMMUNITY DEVELOPMENT/PAs. As a member of the multidisciplinary transplant team, I will be available to assist with dismissal planning, patient education, communicating the plan of care, and answering questions that may arise. Patient verbalized understanding. We reviewed length of stay in [place], outpatient follow up routines, and general information regarding transplant medications. Hospital dismissal planned for 04/10/2022 with the following: ureteral stent in place requiring removal via cystoscopy scheduled in two weeks. Induction was with basiliximab with prednisone. Barriers to dismissal: caregiver arriving Sunday and touring [employer] at that time, OK to dismiss Sunday evening as long as caregiver/lodging arranged. Tour at [employer] set up for 4pm. At the time [...] No acute events overnight. Her friend from [place] will be her caregiver and is not going to arrive in [place] from [place] until maybe Sunday. She is feeling well, [...] Rounds: Reviewed recommendations of Transplant Surgery, Nursing, Mental Hygienist, Pharmacist, Heavy Mobile Equipment Repairer, Case Management and Hospital Coordinator. Associated attestation - Tony Rubalcava M.B., Shashi Otoole. - 04/07/2022 12:10 PM CDT I personally saw and examined the patient and discussed the case during the Multidisciplinary Kidneyand Pancreas Transplant morning rounds. I reviewed the history, physical exam and plan of care documented by Davi Cristopher and agree with her documentation with the [...] then. She has returned from vacation in [place] and her last dialysis was on Sunday and was due to dialyze today in [facility]. In addition to end-stage kidney disease on [...] has been getting dialysis on Sunday/Sunday/Sunday at [facility]. The patient does have history of kidney [...] ventricular hypertrophy. She supposed to arrive at [facility] in the late morning. But she arrives [...] in the form of Hemodialysis on a F schedule, last dialysis being 04/03/2022. She does [...] in this encounter Consult Notes Lola Fink L.I.C.S.W., M.S.W. - 04/07/2022 2:53 PM CDTAssociated Order(s): IP CONSULT TO TRANSPLANT TECHNOLOGY PROFESSIONAL Psychosocial Assessment SUBJECTIVE DEMOGRAPHIC INFORMATION Referral Source: Service/Provider Patient seen for: post-transplant of kidney Persons present: patient Previous Psychosocial Assessment : Yes, Date: 04/07/2021, completed by ZARI Owens. Patient's primary care clinic/primary care provider: ELSEWHERE, PCP Primary language: [place] Islander For this interview, the patient utilized language [...] days into a 30 day vacation in [place] when receiving the call about a potential [...] living. She resides in a home in [place], [place] with him. Education/Employment Highest level of education: High School (9-12) or GED Working for income: No Reason for not working: Disability Patient's plan for extended time off for recovery: Disability Spiritual Practices/Worship/Culture Spirituality / Worship / Culture: Denny Legal History Patient denies current legal issues Community Involvement/ Hobbies: has been busy assisting as a caregiver SOCIAL AND PERSONAL SUPPORT SYSTEMS Psychosocial Risk Factors impacting the patient: mental health Abuse, Neglect, Maltreatment, Trauma: Current: None reported. Past: None reported. ENVIRONMENTAL SUPPORTS Patient's home environment: resides in a home with her father in [place], [place] Anticipated modifications to the patient's home [...] insurance: MEDICARE A AND B Secondary insurance: [place] Discussion occurred today regarding ESRD Medicare [...] patient have travel reimbursement? yes likely through [employer], but hasn't ever used them before. She [...] at the time of the visit. Transplant licensed social worker reviewed UNOS recipient/donor family communication guidelines. Patient [...] transition home post transplant and ongoing recovery. -asbestos worker helper provided supportive counseling regarding the experience of [...] this time. She will be arriving from [place]. Health of the caregiver: good Lodging: hotel on the day of discharge with the goal [facility] Sunday[facility]/22. Accommodations have been made by Social Work for [facility] hotel check in on 04/09/22 and check out on 04/10/22. The patient was provided with this detailed information. Meals: Patient/visitor cafeteria for patient and caregiver for full day meals on 04/09/22, 04/10/22 and 04/11/22. Patient was given instructions on how to get meals. Post-transplant Specialty pharmacy: able to use the [facility] PATIENT NEEDS/PLAN -Social work will remain available throughout the continuum of transplant. -Patient provided with contact information for inpatient/outpatient licensed social worker. Patient was encouraged to call with any questions. -Patient will need packet of information on writing to donor families to be provided at outpatient social work follow-up visit. -Social work provided valerie for one night of lodging and 3 days of meals pending backdating approval from [employer] since a decision wasn't finalized before the weekend. If approved with [place], then thepatient will need to be notified [...] Nurse to nurse handoff sent to post pet caretaker Jesika Lowe. No nursing barriers to discharge [...] Disease Post-op Diagnosis Chronic Kidney Disease A certified surgical tech/first assistant actively participated and was necessary for [...] Following the induction of general anesthesia, a Pena catheter was placed into the bladder, and [...] a 61 y.o. female admitted to the [facility] kidney/pancreas transplant service for a Donor Kidney [...] 06/01/2022 Telemedicine Pharmacy An Nicholas APRN, C.N.P., WhitneyNDaviP., M.S.N. [address] [place] [address] [phone] (Nicolas wen) 07/31/2022 Lab Laboratory Medicine Tony Rubalcava M. B., Sydnie, MDebra [address] [place] [address] [phone] ( [email or web address]) 07/31/2022 Lab Laboratory Medicine Tony Rubalcava M. B., Sydnie, Mukund [address] [place] [address] [phone] ( [email or web address]) 07/31/2022 Office Visit Transplant Tony Rubalcava M.B., Sydnie, Mukund [address] [place] [address] [phone] ( [email or web address]) 07/31/2022 Appointment Radiology Tony Rubalcava M.B., Sydnie, Mukund [address] [place] [address] [phone] ( [email or web address]) 08/01/2022 Office Visit Transplant Tony Rubalcava M.B., ChBurke, Mukund [address] [place] [address] [phone] ( [email or web address]) 08/01/2022 Clinical Support Transplant Tony Rubalcava M.B., ChBurke, MDebra [address] [place] [address] [phone] ( [email or web address]) Scheduled Orders Name Type Priority Associated Diagnoses [...] e Number [facility] [address] [place] [address] [place] [address] [place] [facility] 200 [facility] Glucose, POCT (04/09/2022 7:39 AM CDT) Analysis [...] Provider LAB POCT ORDERABLES-MANUAL Performing Organization Address City/[facility] Code Phon e Number [facility] [address] [place] [address] [place] [address] [place] [facility] [address] [facility] (ABNORMAL) CBC without Differential (04/09/2022 5:27 AM [...] Organization Address City/State/ZIP Code Phon e Number [facility] - [address] [place], [place] [address] [place] [address] Laboratories-[facility] [address] (ABNORMAL) Basic Metabolic Panel (04/09/2022 5:27 [...] 04/09/2022 DTL Black/ mL/min/BSA 6:35 AM CDT Prydeinig Comment: ----ADDITIONAL INFORMATION---- Estimated GFR calculated using [...] Organization Address City/State/ZIP Code Phon e Number [facility] - [address] [place], [place] [address] [place] [address] Laboratories-[facility] [address] (ABNORMAL) Tacrolimus, B (04/09/2022 5:27 AM CDT) [...] performa nce characteristics determined by [facility] in a manner consistent with CLIA requirements. This test has not been cleared or approved by the [place] d and Drug Administration. Specimen Anatomical Collection Method Collection Time Receive d Time (Source) Location / / Volume Laterality Blood (Blood, 04/09/2022 5:27 AM 04/09/20 9:15 Venous) CDT AM CDT An Nicholas APRN, C.N.P., D.N.P., M.S.N. LAB BLOOD NON ADD-ON Performing Organization Address [facility] Phon e Number [facility] [address] [place], [place] [address] [facility] [place] [address] Laboratory Medicine and Pathology [address] [place] (ABNORMAL) Phosphorus Inorganic (04/09/2022 5:27 AM CDT) athologist Signature Phosphorus 6.5 (H) 2.5 - 4.5 04/09/2022 DTL (Inorganic), S mg/dL 6:35 AM CDT Specimen Anatomical Collection Method Collection Time Receive d Time (Source) Location / / Volume Laterality Blood (Blood, 04/09/2022 5:27 AM 04/09/20 6:10 Venous) CDT AM CDT Dunia Vargas M.D. LAB BLOOD ADD-ON Performing Organization Address [facility] Phon e Number [facility] - [address] [place], [place] [address] [place] [address] Magnesium (04/09/2022 5:27 AM CDT) athologist Signature Magnesium, S 2.0 1.7 - 2.3 04/09/2022 DTL mg/dL 6:35 AM CDT Specimen Anatomical Collection Method Collection Time Receive d Time (Source) Location / / Volume Laterality Blood (Blood, 04/09/2022 5:27 AM 04/09/20 22 6:10 Venous) CDT AM CDT Dunia Vargas M.D. LAB BLOOD ADD-ON Performing Organization Address City/[facility] Phon e Number [facility] - [address] [place], [place] [address] [place] [address] (ABNORMAL) Glucose, POCT (04/08/2022 7:04 PM [...] Provider LAB POCT ORDERABLES-MANUAL Performing Organization Address City/State/[facility] Code Phon e Number [facility] [address] [place] [address] SERVICES PCDE [facility] [place] [address] [facility] 200 [facility] (ABNORMAL) CBC without Differential (04/08/2022 6:48 AM CDT) [facility] gist Method Time Signature Hemoglobin 9.0 (L) [...] Organization Address City/State/ZIP Code Phon e Number [facility] - [address] [place] [address] [place] [address] Laboratories-[facility] 200 [facility] (ABNORMAL) Basic Metabolic Panel (04/08/2022 6:48 AM [...] 04/08/2022 DTL Black/ mL/min/BSA 8:35 AM CDT Prydeinig Comment: ----ADDITIONAL INFORMATION---- Estimated GFR calculated using [...] Laterality Blood (Blood, 04/08/2022 6:48 AM 04/08/20 7:38 Venous) CDT AM CDT Dunia Vargas M.D. LAB BLOOD ADD-ON Performing Organization Address City/State/ZIP Code Phon e Number [facility] - [address] [place], [place] [address] [place] [address] Laboratories-[facility] [address] (ABNORMAL) Potassium (04/07/2022 11:59 AM CDT) P athologist Signature Potassium, S 5.5 (H) 3.6 - 5.2 04/07/2022 DTL mmol/L 12:41 PM CDT Specimen Anatomical Collection Method Collection Time Receive d Time (Source) Location / / Volume Laterality Blood (Blood, 04/07/2022 11:59 04/07/2022 Venous) AM CDT 12:28 PM CDT An Nicholas APRN, C.N.P., D.N.P., M.S.N. LAB BLOOD ADD-ON Performing Organization Address City/[facility]/ZIP [facility] Phon e Number [facility] - [address] [place], [place] [address] [place], [place] [id number] [place] [address]-[facility] 200 [facility] (ABNORMAL) Glucose, POCT (04/07/2022 9:56 AM CDT) Analysis Performed At Patho logist Time Signature Glucose, POCT, 284 (H) 70 - 140 04/07/2022 PCDE B mg/dL 10:05 AM CDT Site Capillary 04/07/2022 PCDE 10:05 AM CDT Specimen Anatomical Collection Method Collection Time Receive d Time (Source) Location / / Volume Laterality Blood 04/07/2022 9:56 AM 2 CDT 10:05 AM CDT Unknown Provider LAB POCT ORDERABLES-MANUAL Performing Organization Address City/State/ZIP Code Phon e Number [facility] [address] [place] [address] SERVICES PCDE [facility] [place] [address] [place] [facility] 200 [facility] (ABNORMAL) Glucose, POCT (04/07/2022 9:20 AM CDT) [...] Provider LAB POCT ORDERABLES-MANUAL Performing Organization Address City/[facility]/ZIP Code Phon e Number [facility] [address] [place] [address] [place] [address] [place] [facility] 200 [facility] (ABNORMAL) Glucose, POCT (04/07/2022 8:39 [...] Provider LAB POCT ORDERABLES-MANUAL Performing Organization Address [facility] Phon e Number [facility] [address] [place] [address] [place] [address] [place] [facility] 200 [facility] (ABNORMAL) Glucose, POCT (04/07/2022 8:06 [...] Provider LAB POCT ORDERABLES-MANUAL Performing Organization Address City/[facility]/ZIP [facility] Phon e Number [facility] [address] [place] [address] [place] [address] [place] [facility] 200 [facility] ECG 12 Lead (04/07/2022 7:47 AM CDT) P athologist Signature Ventricular Rate 64 BPM MUSE ECG/Min NM Interval 196 ms MUSE QRSD Interval 90 ms MUSE QT Interval 440 ms MUSE QTC Interval 453 ms MUSE P Angier 41 degrees MUSE R Angier -25 degrees MUSE T Wave Angier 31 degrees MUSE Specimen Anatomical Collection Method [...] CBC without Differential (04/07/2022 6:26 AM CDT) [facility] Method Time Signature Hemoglobin 9.9 (L) 11.6 [...] 6:33 Venous) CDT AM CDT An Nicholas APRN C.N.P., D.N.P., M.S.N. LAB BLOOD ADD-ON Performing Organization Address City/State/ZIP Code Phon e Number [facility] - [address] [place], [place] [address] [place] [address] Laboratories-[facility] [address] [facility] (ABNORMAL) Renal Function Panel (04/07/2022 6:26 AM [...] 04/07/2022 DTL Black/ mL/min/BSA 7:17 AM CDT Prydeinig Comment: ----ADDITIONAL INFORMATION---- Estimated GFR calculated using [...] M.S.N. LAB BLOOD ADD-ON Performing Organization Address City/[facility] Phon e Number [facility] [address] [place] [address] [address] [facility] (ABNORMAL) Phosphorus Inorganic (04/07/2022 6:26 AM CDT) P athologist Signature Phosphorus 5.5 (H) 2.5 - 4.5 04/07/2022 DTL (Inorganic), S mg/dL 7:12 AM CDT Specimen Anatomical Collection Method Collection Time Receive d Time (Source) Location / / Volume Laterality Blood (Blood, 04/07/2022 6:26 AM 04/07/20 6:57 Venous) CDT AM CDT Dunia Vargas M.D. LAB BLOOD ADD-ON Performing Organization Address City/State/[facility] Phon e Number [facility] [address] (ABNORMAL) Magnesium (04/07/2022 6:26 AM CDT) P athologist Signature Magnesium, S 1.5 (L) 1.7 - 2.3 04/07/2022 DTL mg/dL 7:12 AM CDT Specimen Anatomical Collection Method Collection Time Receive d Time (Source) Location / / Volume Laterality Blood (Blood, 04/07/2022 6:26 AM 04/07/20 6:57 Venous) CDT AM CDT Dunia Vargas M.D. LAB BLOOD ADD-ON Performing Organization Address City/State/ZIP Code Phon e Number [facility] - [address] [place], [place] [address] [place] [address] Laboratories-[facility] 200 [facility] (ABNORMAL) CBC with Differential, Blood (04/06/2022 11:49 PM CDT) [facility] Method Time Signature Hemoglobin 10.7 (L) 11.6 [...] Organization Address City/State/ZIP Code Phon e Number [facility] - [address] [place], [place] [address] [place] [address] [facility] [address] [facility] (ABNORMAL) Basic Metabolic Panel (04/06/2022 11:49 PM [...] eGFR-Black/Afri <15 (L) >=60 04/07/2022 METH can Prydeinig mL/min/BSA 12:14 AM CDT Comment: ----ADDITIONAL INFORMATION---- Estimated GFR calculated using the 2009 CKD_EPI creatinine equation. eGFR Non-Black/ <15 (L) >=60 mL/min/BSA 04/07/2022 12:14 AM METH Prydeinig CDT Comment: ----ADDITIONAL INFORMATION---- Estimated GFR calculated [...] Organization Address City/State/ZIP Code Phon e Number [facility] - [address] [place], [place] [address] [place] [address] [facility] [address] US Kidney Transplant Left [...] t. Additional comments: None. Dunia Vargas M.D. IMG [...] Indwelling urinary bladder catheter. Radha Black M.D. IMEdinson DIAGNOSTIC IMAGING PROCE [facility] Renal Pathology (04/06/2022 9:47 PM [...] ? Glomerular Disease (non-alloimmune): No ? Recurrent [place] coy[place] disease: No Specimen (Source) Anatomical Collection Method Collection Time Re ceived Time Location / / Volume Laterality Biopsy (Kidney, 04/06/2022 9:47 PM Allograft) CDT Narrative This result has an attachment that is no t available. Nehemias Felipe M.D. LAB PATH RENAL ORDERABLES Performing Organization Address City/State/[facility] Code Phon e Number [facility] - [address] [place], [place] [address] [place] [address] [facility] [address] HLA CROSSMATCH SUMMARY REPORT [...] Resolution, Donor Testing (04/06/2022 5:10 PM CDT) [facility] gist Method Time Signature Class II LR [id number] 04/14/2022 DBB8 Donor 4:21 PM CDT DRB1 - 1 DR4 Not 04/14/2022 DBB8 Equivalent Applicable 4:21 PM CDT DRB1 - 2 DR4 Not 04/14/2022 DBB8 Equivalent Applicable 4:21 PM CDT DRB1 - 1 DRB1*04:01 Not 04/14/2022 DBB8 Molecular Applicable 4:21 PM CDT DRB1 - 2 DRB1*04:04 Not 04/14/2022 DBB8 Molecular Applicable 4:21 PM CDT RME573 - 1 DR53 Not 04/14/2022 DBB8 Equivalent Applicable 4:21 PM CDT [id number] - 2 DR53 Not 04/14/2022 DBB8 Equivalent Applicable 4:21 PM CDT NEH332 - 1 DRB4*01:03 Not 04/14/2022 DBB8 Molecular Applicable 4:21 PM CDT WXY103 - 2 DRB4*01:03 Not 04/14/2022 DBB8 Molecular [...] performa nce characteristics determined by [facility] in a manner co nsistent with CLIA requirements. This test has not been casper ared or approved by the U.S. Food and Drug Administration. CLIA: [id number] ??CLIA Circular Saw Edge Fuser: SHANTA LOYD MD,PhD Specimen Anatomical Collection Method Collection Time Receive d Time (Source) Location / / Volume Laterality Blood 04/06/2022 5:10 PM 5:10 CDT PM CDT Radha Black M.D. LAB HLA ORDERABLES Performing Organization Address City/State/ZIP Code Phon e Number [facility] - [address] [place], [place] [address] [facility] [place] [address] [facility] [address] [facility] HLA Class I Typing by Low Resolution, Donor Testing (04/06/2022 5:10 PM CDT) [facility] Method Time Signature Class I LR [id number] 04/14/2022 DBB8 Donor 4:20 PM CDT A [...] performa nce characteristics determined by [facility] in a manner co nsistent with CLIA requirements. This test has not been casper ared or approved by the U.S. Food and Drug Administration. CLIA: [id number] ??CLIA Circular Saw Edge Fuser: SHANTA LOYD MD,PhD Specimen Anatomical Collection Method Collection Time Receive d Time (Source) Location / / Volume Laterality Blood 04/06/2022 5:10 PM 5:10 CDT PM CDT Radha Black M.D. LAB HLA ORDERABLES Performing Organization Address City/State/ZIP Code Phon e Number [facility] - [address] [place] [address] [facility] [place] [place] [address] [facility] [address] [facility] HLA Flow Cytometric Crossmatch, Varies (04/06/2022 5:10 PM CDT) [facility] Method Time Signature FXM Crossmatch [id number] 04/06/2022 DBB8 Donor 8:27 PM CDT FXM [...] performa nce characteristics determined by [facility] in a manner co nsistent with CLIA requirements. This test has not been casper ared or approved by the U.S. Food and Drug Administration. CLIA: [id number] ??CLIA Circular Saw Edge Fuser: SHANTA LOYD MD,PhD Specimen Anatomical Collection Method Collection Time Receive d Time (Source) Location / / Volume Laterality Blood 04/06/2022 5:10 PM 5:10 CDT PM CDT Narrative [facility] - 04/10/2022 2:09 PM CDT Specimen Information: Specimen ID: [id number] Specimen Type: Blood Specimen Collection Start Date: 04/06/20 ??5:10 PM Specimen Received Date: 04/06/2022 ??5:1 0 PM Specimen ID: [id number] Specimen Type: Blood Specimen Collection Start Date: 04/06/20 ??5:10 PM Specimen Received Date: 04/06/2022 ??5:1 0 PM Specimen ID: [id number] Specimen Type: Blood Specimen Collection Start Date: 04/06/20 ??5:10 PM Specimen Received Date: 04/06/2022 ??5:1 0 PM Radha Black M.D. LAB HLA ORDERABLES Performing Organization Address City/State/ZIP Code Phon e Number [facility] - [address] [place] [address] [facility] [place] [address] [facility] [address] [facility] DX Chest Portable 1 View (04/06/2022 4:35 [...] 04/06/20 4:30 Venous) CDT PM CDT Narrative [facility] - [facility] - 04/06/2022 4:30 PM CDT Specimen Information: Specimen ID: [id number] Specimen Type: Blood Specimen Collection Start Date: 04/06/20 ??4:30 PM Specimen Received Date: 04/06/2022 ??4:3 0 PM Specimen ID: [id number] Specimen Collection Start Date: 04/06/20 ??4:30 PM Specimen Received Date: 04/06/2022 ??4:3 0 PM Radha Black M.D. LAB BLOOD ADD-ON Performing Organization Address City/[facility] Phon e Number [facility] - [address] [place], [place] [address] [place] [address] [facility] [address] [facility] HIV-1/-2 Ag and Ab Screen, Plasma (04/06/2022 4:30 PM CDT) P athologist Signature HIV-1/-2 Ag Negative Negative 04/06/2022 [facility] and Ab Screen, 9:15 PM CDT [...] - BLOOD ORD ERABLES Performing Organization Address City/[facility] Phon e Number [facility] [address] [place], [place] [address] [facility] [place] [address] Laboratory Medicine and Pathology [address] [place] Type and Screen (with reflex Antibody ID) (04/06/2022 4:30 PM CDT) Patholo gist Method Time Signature ABORh O Pos Not 04/06/2022 ETRM applicable 5:01 PM CDT Antibody Negative Negative 04/06/2022 ETRM Screen 5:17 PM CDT Type & Screen 04/09/2022 04/06/2022 ETRM Expiration 23:59 5:01 PM CDT Testing [place] DEFAULT 04/06/2022 ETRM Location 4:39 PM CDT Specimen Anatomical Collection Method Collection Time Receive d Time (Source) Location / / Volume Laterality Blood (Arm, 04/06/2022 4:30 PM 2 4:39 Left) CDT PM CDT Radha Black M.D. LAB BLOOD BANK TEST ORDERABL ES Performing Organization Address City/[facility] Phon e Number [facility] - [address] [place], [place] [address] [place] [address] [facility] [address] [facility] HLA Class I/II Combined cPRA, S (04/06/2022 4:29 PM CDT) [facility] Method Time Signature Class I/II 50 Not [...] frequencies published by [employer] listed here: http://optn.tr ansplant.[facility].gov CLIA: [id number] ??CLIA Circular Saw Edge Fuser: SHANTA LOYD MD,PhD Combined cPRA Specificities see below 04/10/2022 8 :06 AM CDT DBB8 Comment: A:32 B:38 49 51 78 DQ:2 Specimen Anatomical Collection Method Collection Time Receive d Time (Source) Location / / Volume Laterality Blood 04/06/2022 4:29 PM 2 7:41 CDT AM CDT Radha Black M.D. LAB HLA ORDERABLES Performing Organization Address City/[facility] Phon e Number [facility] - [address] [place], [place] [address] [facility] [place] [place] [address] [facility] [address] [facility] HLA Class II SAB Antibody Screen (04/06/2022 4:29 PM CDT) [facility] Method Time Signature Class II SAB Positive Not Applicable 04/10/2022 DBB8 Overall Result 8:00 AM CDT SAB DRB1 NONE 04/10/2022 DBB8 Specificity 8:00 AM CDT SAB [id number] NONE 04/10/2022 DBB8 Specificity 8:00 AM CDT SAB DQB1 see below 04/10/2022 DBB8 Specificity 8:00 AM CDT Comment: 2(A*05:01;B*02:01)[3793] Format: Serologic Eq.(DQA1;DQB1 Mol. All jorge)[Normalized MFI] NOTE: Data is displayed in descending or kristi by Mean Fluorescence Intensity (MFI). ??Serologic equivalents can be di splayed multiple times for different molecular alleles. SAB DPB1 Specificity see below 04/10/2022 8:00 AM CDT DBB8 Comment: 6(A*01:03;B*06:01)[865] Format: Serologic Eq.(DPA1;DPB1 Mol. All jorge)[Normalized MFI] NOTE: Data is displayed in descending or kristi by Mean Fluorescence Intensity (MFI). ??Serologic equivalents can be di splayed multiple times for different molecular alleles. ----ADDITIONAL INFORMATION---- Method: Luminex Flow Cytometry CLIA: [id number] ??CLIA Circular Saw Edge Fuser: SHANTA LOYD MD,PhD Specimen Anatomical Collection Method Collection Time Receive d Time (Source) Location / / Volume Laterality Blood (Blood, 04/06/2022 4:29 PM 04/07/20 22 7:41 Venous) CDT AM CDT Radha Black M.D. LAB HLA ORDERABLES Performing Organization Address City/State/ZIP Code Phon e Number [facility] - [address] [place], [place] [address] [facility] [place] [place] [address] [facility] [address] HLA Class I SAB Antibody Screen (04/06/2022 4:29 PM CDT) [facility] Method Time Signature Class I SAB Positive [...] CDT DBB8 Comment: 51(51:01)[6580], 49(49:01)[3358], 51(51: 02)[2853], 78(78:01)[2458], 38(38:01)[2150], 59(59: 01)[1992], 63(15:16)[1970], 75(15:02)[1784], 52(52: 01)[1776], [...] ----ADDITIONAL INFORMATION---- Method: Luminex Flow Cytometry CLIA: [id number] ??CLIA Circular Saw Edge Fuser: SHANTA LOYD MD,PhD Specimen Anatomical Collection Method Collection Time Receive d Time (Source) Location / / Volume Laterality Blood (Blood, 04/06/2022 4:29 PM 08/19/20 22 7:41 Venous) CDT AM CDT Radha Black M.D. LAB HLA ORDERABLES Performing Organization Address City/[facility]/ZIP Code Phon e Number [facility] - [address] [place], [place] [address] [facility] [place] [address] [facility] 200 [facility] (ABNORMAL) Troponin T, 5th Generation (04/06/2022 4:29 PM CDT) athologist Signature Troponin T, 5th 58 (H) <=10 ng/L 04/06/2022 DTL gen 5:17 PM CDT Specimen Anatomical Collection Method Collection Time Receive d Time (Source) Location / / Volume Laterality Blood (Blood, 04/06/2022 4:29 PM 04/06/20 22 5:01 Venous) CDT PM CDT Radha Black M.D. LAB BLOOD ADD-ON Performing Organization Address City/[facility]/ZIP Code Phon e Number [facility] - [address] [place], [place] [address] [place] [address] [place] [address] [address] [facility] Bilirubin, Total (04/06/2022 4:29 PM CDT) athologist Signature Bilirubin, 0.3 <=1.2 mg/dL 04/06/2022 METH Total, P 4:55 PM CDT Specimen Anatomical Collection Method Collection Time Receive d Time (Source) Location / / Volume Laterality Blood (Blood, 04/06/2022 4:29 PM 04/06/20 22 4:40 Venous) CDT PM CDT Radha Black M.D. LAB BLOOD ADD-ON Performing Organization Address City/[facility]/ZIP Code Phon e Number [facility] - [address] [place], [place] [address] [facility] [place], [place] [address] [place] [address] Bilirubin, Direct (04/06/2022 4:29 PM CDT) athologist Signature Bilirubin, <0.2 0.0 - 0.3 04/06/2022 DTL Direct, P mg/dL 5:16 PM CDT Specimen Anatomical Collection Method Collection Time Receive d Time (Source) Location / / Volume Laterality Blood (Blood, 04/06/2022 4:29 PM 04/06/20 22 5:01 Venous) CDT PM CDT Authorizing Provider Result Anand Black M.D. LAB BLOOD ADD-ON Performing Organization Address City/[facility]/ZIP Code Phon e Number [facility] - [address] [place], [place] [address] [place] [address] [facility] [address] [facility] (ABNORMAL) Dipstick, Urine (04/06/2022 4:19 PM CDT) [...] PM 2 4:28 CDT PM CDT Radha Balck M.D. LAB URINE ORDERABLES Performing Organization Address City/[facility]/ZIP Code Phon e Number [facility] - [address] [place], [place] [address] [place] [address] Osmolality, Urine (04/06/2022 4:19 PM CDT) P athologist Signature Osmolality, U 316 150 - 1150 04/06/2022 DTL mOsm/kg 5:12 PM CDT Specimen Anatomical Collection Method Collection Time Receive d Time (Source) Location / / Volume Laterality Urine 04/06/2022 4:19 PM 2 4:28 CDT PM CDT Rdaha Black M.D. LAB URINE ORDERABLES Performing Organization Address City/[facility]/ZIP Code Phon e Number [facility] - [address] (ABNORMAL) pH, Random, Urine (04/06/2022 4:19 PM CDT) athologist Signature pH, Random, U 8.1 (H) 4.5 - 8.0 04/06/2022 DTL 5:07 PM CDT Specimen Anatomical Collection Method Collection Time Receive d Time (Source) Location / / Volume Laterality Urine 04/06/2022 4:19 PM 2 4:28 CDT PM CDT Radha Black M.D. LAB URINE ORDERABLES Performing Organization Address City/[facility] Phon e Number [facility] - [address] (ABNORMAL) Microscopic Manual (04/06/2022 4:19 PM CDT) athologist Signature Microscopy Abnormal 04/06/2022 DTL 5:30 [...] M.D. LAB URINE ORDERABLES Performing Organization Address City/[facility]/ZIP [facility] Phon e Number [facility] - [id number] [place] [address] SARS Coronavirus 2, PCR Rapid, V Asymptomatic (04/06/2022 4:19 PM CDT) Patholo gist Method Time Signature SARS CoV-2, Undetected Undetected 04/06/2022 [facility] PCR, Rapid, V 5:32 PM CDT Comment: ----ADDITIONAL INFORMATION---- This RT-PCR test was performed using the Krupa SARS-CoV-2 and Influenza A/B Reagent assay from [employer], which has received Emergency Use Authori zation(EUA) by the U.S. Food and Drug Administration . Fact sheets for this Emergency Use Autho rization (EUA) assay can be found at the following link s: For Healthcare Providers: https://www.fda.gov/media/685451/downloa d For Patients: https://www.fda.gov/media/080753/downloa d SARS Coronavirus 2, Source, Rapid Swab, Nasopharynx 04/06/2022 4:51 PM CDT STMA Specimen Anatomical Collection Method Collection Time Receive d Time (Source) Location / / Volume Laterality Varies 04/06/2022 4:19 PM 4:51 (Nasopharynx) CDT PM CDT nA Nicholas APRN, C.N.P., D.N.P., M.S.N. LAB MICRO BIOLOGY - GENERAL ORDERABLES Performing Organization Address City/State/ZIP Code Phon e Number [facility] - [address] [place] [address] [place] [address] [facility] [address] [facility] (ABNORMAL) Urinalysis with Microscopic: Urine, Midstream (04/06/2022 [...] 04/06/2022 5:57 PM CDT DTL Predicted Range [id number] mg/24 h 04/06/2022 5:57 PM CDT DTL Comment Micro done on <10 04/06/2022 7:47 PM CDT DTL mL Specimen Anatomical Collection Method Collection Time Receive d Time (Source) Location / / Volume Laterality Urine (Urine, 04/06/2022 4:19 PM 04/06/20 4:28 Midstream) CDT PM CDT Radha Black M.D. LAB URINE ORDERABLES Performing Organization Address City/[facility]/ZIP Code Phon e Number [facility] - [address] [place], [place] [address] [place] [address] [place] [address] (ABNORMAL) Gram Stain, Urine (04/06/2022 4:19 PM CDT) [facility] Method Time Signature Source Urine, Urine, 04/06/2022 [...] Organization Address City/State/ZIP Code Phon e Number [facility] - [address] [place], [place] [address] [facility] [place], [place] [address] [place] [address] Bacterial Culture, Aerobic + Susc, Urine (04/06/2022 4:19 PM CDT) Component Value Ref Test Analysis Performed At [facility] Method Time Signature Urine Urogenital microbiota, susceptibilities not 04/08/2022 DTL Culture performed per laboratory criteria. 11:16 AM CDT Specimen Anatomical Collection Method Collection Time Receive d Time (Source) Location / / Volume Laterality Urine (Urine, 04/06/2022 4:19 PM 04/06/20 22 5:44 Midstream) CDT PM CDT Comment: Specimen Source Site: Urine Radha Black M.D. LAB MICROBIOLOGY - GENERAL O RDERABLES Performing Organization Address City/[facility]/ZIP [facility] Phon e Number [facility] - [address] [place], [place] [address] [place] [address] [facility] [address] [facility] HCV RNA Detect / Quant, Serum (04/06/2022 3:28 PM CDT) [facility] gist Method Time Signature HCV RNA Undetected Undetected 04/06/2022 [facility] Detect/Quant, IU/mL 10:10 PM S CDT Comment: Result in log IU/mL is Undetected. ----ADDITIONAL INFORMATION---- The quantification range of this assay i s 15 to 100,000,000 IU/mL (1.18 log to 8.00 log IU/mL). Testing was performe d using the barrett HCV test ([employer] with the barrett 6800 System. Specimen Anatomical Collection Method Collection Time Receive d Time (Source) Location / / Volume Laterality Blood (Blood, 04/06/2022 3:28 PM 04/06/20 6:02 Venous) CDT PM CDT Radha Black M.D. LAB MICROBIOLOGY - BLOOD ORD ERABLES Performing Organization Address [facility] Phon e Number [facility] [address] [place], [place] [address] [facility] [place] [address] Laboratory Medicine and Pathology [address] [place] HCV Ab Scrn w/Reflex to HCV PCR, Serum (04/06/2022 3:28 PM CDT) P athologist Signature HCV Ab Screen, Negative Negative 04/06/2022 [facility] S 9:27 PM CDT Comment: Mzktli-yc-hdbvvd ratio is <1.00 . Specimen (Source) Anatomical Collection Method Collection Time Re ceived Time Location / / Volume Laterality Blood (Blood, 04/06/2022 3:28 04/06/2022 5:57 Peripheral Draw) PM CDT PM CDT Radha Black M.D. LAB MICROBIOLOGY - BLOOD ORD EDD Performing Organization Address City/[facility]/ZIP Code Phon e Number [place] [id number] [place] [address] [place] [address] Laboratory Medicine and Pathology [address] [place] [address] Dr. [place] HBc Total Ab Scrn, S (04/06/2022 3:28 PM CDT) athologist Signature HBc Total Ab Negative Negative 04/06/2022 [facility] Scrn, S 9:26 PM CDT Specimen Anatomical Collection Method Collection Time Receive d Time (Source) Location / / Volume Laterality Blood (Blood, 04/06/2022 3:28 PM 04/06/20 5:57 Venous) CDT PM CDT Radha Black M.D. LAB MICROBIOLOGY - BLOOD ORD EDD Performing Organization Address [facility] Phon e Number [address] [place] [address] [place] [address] Laboratory Medicine and Pathology [address] [place] [address] Dr. [place] HBs Antibody Scrn, S (04/06/2022 3:28 PM CDT) athologist Signature HBs Antibody Negative 04/06/2022 [facility] Scrn, S 9:27 PM CDT Comment: Patient is presumed to be not immune to infection with HBV. ----REFERENCE VALUE---- Unvaccinated: Negative Vaccinated: Positive HBs Antibody, Quantitative, S <5.0 mIU/mL 04/06/2022 9:27 PM CDT [facility] Comment: ----REFERENCE VALUE---- Unvaccinated: <5.0 Vaccinated: >=12.0 Specimen Anatomical Collection Method Collection Time Receive d Time (Source) Location / / Volume Laterality Blood (Blood, 04/06/2022 3:28 PM 04/06/20 22 5:57 Venous) CDT PM CDT Radha Black M.D. LAB MICROBIOLOGY - BLOOD ORD EDD Performing Organization Address City/[facility]/ZIP Code Phon e Number [address] [place] [address] [place] [address] Laboratory Medicine and Pathology [address] [place] HBs Antigen Scrn, S (04/06/2022 3:28 PM CDT) P athologist Signature HBs Antigen Negative Negative 04/06/2022 [facility] Scrn, S 9:10 PM CDT Specimen Anatomical Collection Method Collection Time Receive d Time (Source) Location / / Volume Laterality Blood (Blood, 04/06/2022 3:28 PM 04/06/20 5:57 Venous) CDT PM CDT Radha Black M.D. LAB MICROBIOLOGY - BLOOD ORD ERABLES Performing Organization Address City/State/ZIP Code Phon e Number [facility] [address] [place], [place] [address] [address] [facility] [place] [address] Laboratory Medicine and Pathology [address] [place] [address] Dr. [place] (ABNORMAL) Prothrombin Time (PT) (04/06/2022 [...] Organization Address City/State/ZIP Code Phon e Number [facility] - [address] [place], [place] [address] [place] [address] [facility] [address] APTT (Activated Partial Thromboplastin Time) (04/06/2022 [...] M.D. LAB BLOOD ADD-ON Performing Organization Address [facility] Phon e Number [facility] - [address] [place], [place] [address] [place] [address] Laboratories-[address] Phosphorus Inorganic (04/06/2022 3:28 PM CDT) P athologist Signature Phosphorus 4.3 2.5 - 4.5 04/06/2022 DTL (Inorganic), S mg/dL 4:22 PM CDT Specimen Anatomical Collection Method Collection Time Receive d Time (Source) Location / / Volume Laterality Blood (Blood, 04/06/2022 3:28 PM 04/06/20 22 3:56 Venous) CDT PM CDT Radha Black M.D. LAB BLOOD ADD-ON Performing Organization Address City/[facility] Phon e Number [facility] - [address] DTL [place], [place] [phone] [place] [address] (ABNORMAL) Comprehensive Metabolic Panel (04/06/2022 3:28 PM [...] 04/06/2022 DTL Black/ mL/min/BSA 4:22 PM CDT Prydeinig Comment: ----ADDITIONAL INFORMATION---- Estimated GFR calculated using [...] Organization Address City/State/ZIP Code Phon e Number [facility] [facility] - [address] [place], [place] [address] [place] [address] Laboratories-[facility] [address] (ABNORMAL) CBC with Differential, Blood (04/06/2022 3:27 PM CDT) [facility] gist Method Time Signature Hemoglobin 10.3 (L) 11.6 [...] Organization Address City/State/ZIP Code Phon e Number [facility] - [address] [place], [place] [address] [place] [address] Laboratories-[facility] [address] ECG 12 Lead (04/06/2022 3:09 PM CDT) P athologist Signature Ventricular Rate 74 BPM MUSE ECG/Min NM Interval 174 ms MUSE QRSD Interval 82 ms MUSE QT Interval 400 ms MUSE QTC Interval 444 ms MUSE P Angier 54 degrees MUSE R Angier -14 degrees MUSE T Wave Angier 39 degrees MUSE Specimen Anatomical Collection Method Collection Time Receive d Time (Source) Location / / Volume Laterality 04/06/2022 3:09 PM 2 3:13 CDT PM CDT Impressions MUSE - 04/06/2022 3:13 PM CDT Normal sinus rhythm Low voltage QRS Nonspecific ST abnormality When compared with ECG of 07-APR-2021 09 :, No significant change was found Reviewed by [...] r Filtration Rate Less Than 15 (HCC) Chronic Kidney Disease documented in this encounter Admitting Diagnoses Diagnosis Chronic Kidney Disease NOS Chronic Kidney Disease Stage 5 Glomerula r Filtration Rate Less Than 15 (HCC) documented in this encounter Administered Medications Inactive Administered Medications - up to 3 most recent administrations Medication Order MAR Action Action Date Dose Rate Site acetaminophen tablet 650 mg Given 04/09/2022 12:26 PM CDT 650 mg (TYLENOL) 650 mg, oral, Every 6 hours, First dose on Sun04/07/22 at 0600, (not to exceed 4 grams in 24 hours) Given 04/09/2022 5:17 AM CDT 650 mg Given 04/09/2022 12:10 AM CDT 650 mg basiliximab 20 mg in NaCl 0.9% [...] polyethylene glycol, then bisacodyl until BM achieved. bupivacaine liposome (PF) 20 Given 04/06/2022 10:21 PM CDT 50 mL Abdominal Tissue mL, bupivacaine 30 mL 50 mL injection As needed, Starting on Elizabeth 04/06/22 at 2221, Intra-Op gabapentin capsule 200 mg (NEURONTIN) Given 04/08/2022 8:24 PM CDT 200 mg 200 mg, oral, Daily at bedtime, First dose on Sun04/07/22 at 2100 Given 04/07/2022 8:07 PM CDT 200 mg gabapentin capsule 300 mg (NEURONTIN) Given 04/09/2022 8:02 AM CDT 300 mg 300 mg, oral, Every morning, First dose on Sun04/08/22 at 0900 Given 04/08/2022 9:26 AM CDT 300 mg gentamicin-polymixin B 20 mcg/mL-500 Given 04/06/2022 8:00 PM CD T 125 mL Other units/mL irrigation (DABS_MODIFIED) irrigation, Once in surgery, OR use only, Starting on Elizabeth 04/06/22 at 1808, For 1 dose, Intra-Op, *IRRIGATION ONLY* heparin 10 Units/mL in NaCl 0.9% 100 mL flush Given 10:00 PM CDT 25 mL solution 100 mL, other, Once in surgery, OR use only, Starting on Elizabeth 04/06/22 at 1808, For 1 dose, Intra-Op, *Flush/Irrigation use only* insulin aspart U-100 Given 04/09/2022 12:28 PM [...] CDT 4 Units Right Upper Arm (Back) magnesium oxide tablet 800 mg (MAG-OX) Given 04/09/2022 5:17 AM CDT 800 mg 800 mg, oral, Daily before breakfast, First dose on Sun04/08/22 at 0700 Given 04/08/2022 6:52 AM CDT 800 mg multivitamin/mineral- tablet 1 Given 04/09/2022 8:02 AM CDT 1 tablet tablet 1 tablet, oral, Daily, First dose on Sun04/07/22 at 0900 Given 04/08/2022 9:26 AM CDT 1 tablet Given 04/07/2022 8:19 AM CDT 1 tablet mycophenolate capsule 750 mg (CELLCEPT) Given 04/09/2022 8:02 AM CDT 750 mg 750 mg, oral, 2 times daily, First dose on Sun04/07/22 at 0900, Swallow whole. Do NOT crush, chew or open capsule., Continuation of oornw-lk-yoojnwlbz therapy? Yes Given 04/08/2022 8:24 PM CDT 750 mg Given 04/08/2022 9:27 AM CDT 750 mg naloxone injection 0.2 mg (NARCAN) 0.2 [...] of 10, Starting on Sun04/07/[address] tablet 40 mg (PROTONIX) Given [...] last modificatio n) on Sun04/10/22 at 0900 rosuvastatin tablet 5 mg (CRESTOR) Given 04/08/2022 [...] Given 04/07/2022 8:07 PM CDT 25 mg sulfamethoxazole-trimethoprim 400-80 mg per tablet 1 tablet [...] 3 mg valGANciclovir tablet 450 mg (VALCYTE) 450 [...] mg (TYLENOL) 0524 (Given - Pr ovider: Dara Chakraborty R.N.)1111 (Given - Provider: Joshua Canada RDaviN.)1751 (Given - Provider: Joshua Canada R.N.)2356 (Given - Provider: tSephanie Mcgee R.N.) 0652 (Given - Provider: Stephanie Mcgee R.N.)1246 (Given - Provider: Rosey Noe R.N.)1806 (Given - Provider: Janis Dawn R.N.) 0010 (Given - Provider: Alexa Klein R.N.)0517 (Given - Provider: Alexa Klein R.N.)1226 (Given - Provider: Joshua Canada R.N.) 650 mg, oral, Every 6 hours, First dose on Sun04/07/22 at 0600, (not to exceed 4 grams in 24 hours) albuterol nebulizer solution 5 mg (COMPLETED) 0756 (Gi maeve - Provider: Joshua Canada R.N.)0802 (Given - Provider: Joshua Canada R.N.)0804 (Given - Provider: Joshua Canada R.N.) 5 mg, nebulization, Every 5 min, First [...] 6 (New Bag - Provider: Joshua Canada R.N.) 2 g, intravenous, at 400 mL/hr, Administ er over 15 Minutes, Once, On Sun04/07/22 at 0745, For 1 dose, For peripheral IV administration (avoid antecubital fossa, dorsum of hand or wrist if possible). MD systems coordinator to directly observe IV site for po [...] after last intraoperative dose., [facility] adjust medication dosing base d on indication and drug clearance factors., Indications: Prophylaxis, surgical D10W bolus bolus (COMPLETED) 812 (New Bag - Provider: Joshua olson R.N.) [...] (NEURONTIN) 09 (Given - Provider: Rosey Noe R.N.) 0802 (Given - Provider: Joshua Canada, R.N.) 300 mg, oral, Every morning, First dose on Sun04/08/22 at 0900 insulin aspart U-100 injection 0-13 Units (NovoLOG FlexPen) 1910 (Given - Provider: Janis Dawn R.N.) 0745 (Not Given - Provider: Joshua sousa, R.N. - Reason: Order parameters not met)1228 (Given - Provider: Joshua Canada R.N.) 0-13 Units, subcutaneous, 3 times daily, First [...] orders insulin regular injection 5 Units (COMPLETED) 0811 (Gi maeve - Provider: Joshua Canada RDaviN.) 5 Units (rounded from 5.15 Units = [...] RDaviN.) 0517 (Given - Provider: Alexa pizarro R.N.) 800 mg, oral, Daily before breakfast, First dose on 04/08/22 at 0700 methylPREDNISolone sod succinate (PF) in jection 125 mg (SOLU-Medrol) (COMPLETED) 926 (Given - Provider: Rosey king R.N.) 125 mg, intravenous, Once, On Sat 2 at 0900, For 1 dose, Administer on postoperative day 2 Activate vial to a final concentration of 62.5 mg/mL methylPREDNISolone sod succinate (PF) in jection 250 mg (SOLU-Medrol) (COMPLETED) 1433 (Given - Provider: Joshua Canada R.N.) 250 mg, intravenous, Once, On Sun 2 at 1500, For 1 dose, Administer on postoperative day 1 Activate vial to a final concentration of 62.5 mg/mL multivitamin/mineral- tablet 1 tablet 0819 (Gi maeve - Provider: Joshua Canada R.N.) 09 (Given - Provider: Rosey Noe R.N.) 08 (Given - Provider: Joshua Canada R.N.) 1 tablet, oral, Daily, First dose on Sun04/07/22 at 0900 mycophenolate capsule 750 mg (CELLCEPT) 818 (Given - Provider: Joshua Canada R.N.)2005 (Given - Provider: Stephanie Mcgee R.N.) 09 (Given - Provider: Rosey Noe R.N.)2023 (Given - Provider: Alexa Klein R.N.) 08 (Given - Provider: Joshua Canada R.N.) 750 mg, oral, 2 times daily, First dose on Sun04/07/22 at 0900, Swallow whole. Do NOT crush, chew or open capsule., Continuation of fhlac-vc-evjvfjdnt therapy? Yes NaCl 0.9 % bolus 1,000 mL (COMPLETED) 0800 (New Bag - Provider: Ann DelaneyNDavi) 1,000 mL, intravenous, at 1,000 mL/hr, A dminister over 1 Hours, Once, On Sun04/07/22 at 0745, For 1 dose nebivoloL tablet 5 mg (BYSTOLIC) 0845 (Given - Provider: Col gladys Canada R.N.) 09 (Given - Provider: Rosey Noe R.N.) 08 (Given - Provider: Ann DelaneyNDavi) 5 mg, oral, Daily, First dose on Sun04/07/22 at 0900 nystatin suspension 500,000 Units (MYCOSTATIN) 08 (G iven - Provider: Joshua Canada R.N.)143 (Given - Provider: Joshua Canada R.N.)1751 (Given - Provider: Joshua Canada R.N.)2005 (Given - Provider: Stephanie Mcgee R.N.) 09 (Given - Provider: Ann AshbyNDavi)1247 (Given - Provider: Ann AshbyNDavi)1806 (Given - Provider: Janis Dawn RDaviNDavi)2023 (Given - Provider: Alexa Klein RDaviN.) 08 (Given - Provider: Joshua Canada R.N.)1226 (Given - Provider: Joshua Canada R.N.) 500,000 Units, swish & spit, 4 times zoraida ly after meals and bedtime, First dose on Sun04/07/22 at 0900, For 30 days, Indications: Prophylaxis, medical pantoprazole DR tablet 40 mg (PROTONIX) 630 (Given - Provider: Dara Chakraborty RDaviN.) 0652 (Given - Provider: Stephanie Mcgee R.N.) 0517 ( Given - Provider: Alexa Klein RDaviNDavi) 40 mg, oral, Daily before breakfast, Fir st dose on Sun04/07/22 at 0700, Swallow whole. Do NOT crush, chew, or split tablet. predniSONE tablet 20 mg (DELTASONE) 20 mg, oral, Daily, First dose (after last modificatio n) on Sun04/10/22 at 0900 predniSONE tablet 40 mg (DELTASONE) (COMPLETED) 802 (Given - Provider: Joshua Canada RDaviNDavi) 40 mg, oral, Once, On Sun04/09/22 at 000 0, For 1 dose, Administer on postoperative day 3 rosuvastatin tablet 5 mg (CRESTOR) 2006 (Given - Provi kristi: Stephanie Mcgee RDaviNDavi) 2023 (Given - Provider: Alexa Klein R.NDavi) 5 mg, oral, Daily at bedtime, First dose (after last modification) on Sun04/07/22 at 2100 sennosides-docusate sodium 8.6-50 mg per tablet 1 tabl et (SENOKOT-S) 08 (Given - Provider: Joshua Canada R.N.)2005 (Given - Provider: Stephanie Mcgee R.N.) 926 (Given - Provider: Ann MaryNDavi)2023 (Given - Provider: Ann ZepedaNDavi) 08 (Given - Provider: Joshua Canada R.N.) 1 tablet, oral, 2 times daily, First dos e on Sun04/07/22 at 0900, Do not give if patient has diarrhea. sertraline tablet 25 mg (ZOLOFT) 2006 (Given - Provide r: Stephanie Mcgee R.N.) 2023 (Given - Provider: Alexa Klein R.N.) 25 mg, oral, Daily at bedtime, First dose on Sun04/07/22 at 2100 sulfamethoxazole-trimethoprim 400-80 mg per tablet 1 tablet (BACTRIM,SEPTRA) (CANCELED) 818 (Given - Provider: Joshua Canada RRalf) 925 (G iven - Provider: Rosey Noe R.N.) 08 (Given - Provider: Joshua Canada [...] R.N.) 926 (Given - Provider: Rosey king RRalf)2023 (Given - Provider: Alexa Klein R.N.) 808 (Given - Provider: Joshua Canada R.N.) 3 mg, oral, 2 times daily - immunosuppre ssion, First dose on Sun04/07/22 at 2000 valGANciclovir tablet 450 mg (VALCYTE) (CANCELED) 818 (Given - Provider: Joshua Canada R.N.) 926 (Given - Provider: Ann AshbyNDavi) 03 28 (Given - Provider: Joshua Canada [...] IR tablet 10 mg (ROXICODONE)(Linked Group 1) 9328 (See Alternative - Provider: Joshua Canada R.N.)1519 (Given - Provider: Joshua Canada R.N.)2157 (Given - Provider: Stephanie Mcgee RDaviNDavi) 0 819 (Given - Provider: Joshua Canada R.N.) 10 mg, oral, Every 4 hours PRN, severe p ain or score 7-10 of 10, Starting on Sun04/07/22 at 0304 oxyCODONE IR tablet 5 mg (ROXICODONE)(Linked Group 1) 1111 (Given - Provider: Joshua Canada R.N.)1519 (See Alternative - Provider: Joshua Canada R.N.)2157 (See Alternative - Provider: Stephanie Mcgee R.N.) 0819 (See Alternative - Provider: Joshua Canada R.N.) 5 mg, oral, Every 4 hours PRN, moderate pain or score 4-6 of 10, Starting on Sun04/07/22 at 0304 oxyCODONE IR tablet 5 mg (ROXICODONE) (COMPLETED) 0029 (Given - Provider: Ying Fitch RDaviNDavi) 5 mg, oral, Once as needed, moderate [...] documented as of this encounter Care Teams Slat Basket Maker Helper Machine Relationship Specialty Start Date End Date Elsewhere, Pcp PCP - General 09/17/19 documented as of this encounter
--- OUTSIDE RECORDS SUMMARY | 2022-05-25 13:02 | XMS_ITS | Encounter Summary ---
:1960 Author Organization [facility] Address [address] [place] [id number] Care Team Providers Name Role Phone Elsewhere, Pcp Primary Care Provider Unavailable Encounter Details Date Type Department Care Team Description 03/09/2022 Hospital Encounter Department of GuilhermeTwin lowery Chro nic Kidney Disease; Laboratory Medicine M.D. Pretransplant Recipient Evaluation Exam and Pathology, [address] [place] [address] in [facility] [id number] [place] [phone] [place] [address] (Work) [place], [place] [phone] (Fax) [phone] Social History Tobacco Use Types Packs/Day Years [...] 12/23/2021 relatives? How often do you attend anabaptism or jew 1 to 4 times per year 12/23/2021 services? Do you belong to any clubs or organizations such No 12/23/2021 as anabaptism groups, unions, fraternal or athletic groups, or [...] Sig Dispensed Refills Start Date End Date gabapentin (NEURONTIN) TAKE 3 CAPSULES BY 450 capsule 3 03/21 100 mg capsule MOUTH IN THE MORNING AND 2 CAPSULES IN THE EVENING hydrocortisone Apply 1 application 0 09/18/2017 (for_HYTONE) 2.5 % topically daily as cream needed (Eczema). acetaminophen (TYLENOL) Take 2 tablets 0 05/12/20 19 04/07/2022 500 mg tablet (1,000 mg total) by mouth every 6 (six) hours as needed for pain. amLODIPine (NORVASC) 5 TAKE 1 TABLET(5 MG) 90 tablet 3 06/2004/07/2022 mg tablet BY MOUTH EVERY EVENING amoxicillin-pot On Sunday, 16 tablet 0 02/15/2022 2 clavulanate (AUGMENTIN) Sunday, and 250-125 mg per tablet Sunday take 1 tablet in the morning prior to dialysis. Take 1 tablet after dialysis is completed. On Sunday,, Sunday, and Sunday take 1 tablet in the morning only. Complete 10 day course. Bystolic 10 mg TAKE 1 TABLET(10 MG) 90 tablet 3 08/30/2020 04/07/2022 tabletIndications: BY MOUTH DAILY Transplant Renal (HCC) calcium carbonate Chew 2 tablets 2 0 0 04/07/2022 (TUMS) 500 mg (200 mg (two) times a day calcium) chewable with meals. Lunch tablet and dinner. lidocaine-prilocaine APPLY TOPICALLY TO 60 g 11 020 04/07/2022 (EMLA) 2.5-2.5 % cream DIALYSIS ACCESS SITE 30 MINUTES PRIOR TO TREATMENT--GENERIC FOR EMLA mycophenolate TAKE 1 CAPSULE(250 180 capsule 3 01/13/2022 (CELLCEPT) 250 mg MG) BY MOUTH TWICE capsule DAILY. DO NOT BREAK, CUT, OR OPEN CAPSULES predniSONE (DELTASONE) TAKE 1 TABLET(5 MG) 90 tablet 3 02/1704/07/2022 5 mg tablet BY MOUTH DAILY rosuvastatin (CRESTOR) TAKE 1 TABLET BY 90 tablet 3 022 04/07/2022 5 mg tablet MOUTH DAILY sertraline (ZOLOFT) 25 Take 1 tablet (25 mg 90 tablet 3 07/202104/07/2022 mg tablet total) by mouth daily. sevelamer carbonate Take 1 tablet (800 90 tablet 3 02/28/20 22 04/07/2022 (Renvela) 800 mg tablet mg total) by mouth daily. sevelamer HCL (RENAGEL) Take 1 tablet (800 90 tablet 3 02/1704/07/2022 800 mg tablet mg total) by mouth daily. tacrolimus (PROGRAF) 1 Take 3 capsules (3 450 capsule 3 02/1704/07/2022 mg capsule mg total) by mouth every morning AND 2 capsules (2 mg total) every evening. warfarin (COUMADIN) 2 Take 2-2.5 tablets 150 tablet 5 202104/07/2022 mg tablet (4-5 mg total) by mouth daily. 4.5 mg Mon-Sun-Sun, 4 mg other days documented as of this encounter Plan of Treatment Upcoming Encounters Date Type Specialty Care Team Description 06/01/2022 Telemedicine Pharmacy An Nicholas APRN, C.N.P., D.N.P., M.S.N. [address] [place] [address] [phone] (Wo rk) 07/31/2022 Lab Laboratory Medicine Tony Rubalcava M. B., [place], [place] [address] [place] [address] [phone] (Wo rk) 07/31/2022 Lab Laboratory Medicine Tony Rubalcava M. B., [place], [place] [address] [place] [address] [phone] (Wo rk) 07/31/2022 Office Visit Transplant Tony Rubalcava M.B., [place], [place] [address] [place] [address] [phone] (Wo rk) 07/31/2022 Appointment Radiology Tony Rubalcava M.B., [place], [place] [address] [place] [address] [phone] (Wo rk) 08/01/2022 Office Visit Transplant Tony Rubalcava M.B., [place], [place] [address] [place] [address] [phone] (Wo rk) 08/01/2022 Clinical Support Transplant Tony Rubalcava M.B., [place], [place] [address] [place] [address] [phone] (Wo rk) documented as of this encounter Procedures Procedure Name Priority Date/Time Associated Diagnosis Comme nts HLA CLASS I/II Routine 03/15/2022 5:30 AM Results for this COMBINED CPRA, CDT procedure are in SERUM the results section. HLA CLASS II SAB Routine 03/15/2022 5:30 AM Chronic Kidney Res ults for this ANTIBODY SCREEN CDT Disease procedure are in Pretransplant the results Recipient Evaluation section . Exam HLA CLASS I SAB Routine 03/15/2022 5:30 AM Chronic Kidney Resu lts for this ANTIBODY SCREEN CDT Disease procedure are in Pretransplant the results Recipient Evaluation section . Exam documented in this encounter Results HLA Class I/II Combined cPRA, S (03/15/2022 5:30 AM CDT) [facility] Method Time Signature Class I/II 53 Not Applicable 03/21/2022 DBB8 Combined cPRA 10:05 AM CDT Comment: ----ADDITIONAL INFORMATION---- Calculated PRA [...] frequencies published by [employer]OPT[employer] listed here: http://optn.tr ansplant.[facility].gov CLIA: [id number] ??CLIA Cook Vegetable: SHANTA LOYD MD,PhD Combined cPRA Specificities see below 03/21/2022 1 0:05 AM CDT DBB8 Comment: A:32 B:38 49 51 52 59 63 75 77 78 DQ:2 Specimen Anatomical Collection Method Collection Time Receive d Time (Source) Location / / Volume Laterality Blood 03/15/2022 5:30 AM 2:40 CDT PM CDT Resulting Agency Comment Mailed In Specimen Twin Vanegas M.D. LAB HLA ORDERABLES Performing Organization Address City/State/ZIP Code Phon e Number [facility] - [address] [place], [place] [address] [facility] [address]BB[address] [place] [address] Laboratories-[facility] [address] HLA Class II SAB Antibody Screen (03/15/2022 5:30 AM CDT) [facility] Time Signature Class II SAB Positive Not Applicable 03/20/2022 DBB8 Overall Result 12:52 PM CDT SAB DRB1 NONE 03/20/2022 DBB8 Specificity 12:52 PM CDT SAB [id number] NONE 03/20/2022 DBB8 Specificity 12:52 PM CDT SAB DQB1 see below 03/20/2022 DBB8 Specificity 12:52 PM CDT Comment: 2(A*05:01;B*02:01)[7100], 2(A*03:01;B*02 :01)[576] Format: Serologic Eq.(DQA1;DQB1 Mol. All jorge)[Normalized MFI] NOTE: Data is displayed in descending or kristi by Mean Fluorescence Intensity (MFI). ??Serologic equivalents can be di splayed multiple times for different molecular alleles. SAB DPB1 Specificity see below 03/20/2022 12:52 PM CDT DBB8 Comment: 6(A*01:03;B*06:01)[426] Format: Serologic Eq.(DPA1;DPB1 Mol. All jorge)[Normalized MFI] NOTE: Data is displayed in descending or kristi by Mean Fluorescence Intensity (MFI). ??Serologic equivalents can be di splayed multiple times for different molecular alleles. ----ADDITIONAL INFORMATION---- Method: Luminex Flow Cytometry CLIA: [id number] ??CLIA Cook Vegetable: SHANTA LOYD MD,PhD Specimen Anatomical Collection Method Collection Time Receive d Time (Source) Location / / Volume Laterality Blood (Blood, 03/15/2022 5:30 AM 03/16/20 2:40 Venous) CDT PM CDT Resulting Agency Comment Mailed In Specimen Twin Vanegas M.D. LAB HLA ORDERABLES Performing Organization Address City/State/[facility] Code Phon e Number [facility] - [address] [place] [address] [facility] [address] [place] [address] Laboratories-[facility] 200 [facility] HLA Class I SAB Antibody Screen (03/15/2022 5:30 AM CDT) [facility] Method Time Signature Class I SAB Positive Not Applicable 03/20/2022 DBB8 Overall Result 12:20 PM CDT SAB A see below 03/20/2022 DBB8 Specificity 12:20 PM CDT Comment: 32(32:01)[2904], 25(25:01)[1709], 31(31: 01)[1646], 30(30:01)[1579], 24(24:03)[1523], 23(23: 01)[1328], 24(24:02)[1234], 30(30:02)[878] Format: Serologic Eq.(A Mol. Allele)[Nor malized MFI] NOTE: Data is displayed in descending or kristi by Mean Fluorescence Intensity (MFI). ??Serologic equivalents can be di splayed multiple times for different molecular alleles. SAB B Specificity see below 03/20/2022 12:20 PM CD T DBB8 Comment: 51(51:01)[6958], 49(49:01)[3919], 51(51: 02)[3579], 78(78:01)[2897], 38(38:01)[2764], 59(59: 01)[2525], 63(15:16)[2513], 52(52:01)[2289], 75(15: 02)[2236], 77(15:13)[2121], 53(53:01)[1944], 57(57: 03)[1838], 57(57:01)[1718], 58(58:01)[1372], 67(67: 01)[1262], 75(15:11)[791], 27(27:05)[532], 37(37:01 )[524], 71(15:10)[501] Format: Serologic Eq.(B Mol. Allele)[Nor malized MFI] NOTE: Data is displayed in descending or kristi by Mean Fluorescence Intensity (MFI). ??Serologic equivalents can be di splayed multiple times for different molecular alleles. SAB C Specificity NONE 03/20/2022 12:20 PM CD T DBB8 Comment: ----ADDITIONAL INFORMATION---- Method: Luminex Flow Cytometry CLIA: [id number] ??CLIA Cook Vegetable: SHANTA LOYD MD,PhD Specimen Anatomical Collection Method Collection Time Receive d Time (Source) Location / / Volume Laterality Blood (Blood, 03/15/2022 5:30 AM 03/16/20 22 2:40 Venous) CDT PM CDT Resulting Agency Comment Mailed In Specimen Twin Vanegas M.D. LAB HLA ORDERABLES Performing Organization Address City/State/ZIP Code Phon e Number [facility] - [address] [place], [place] [address] [facility] [address]BB[address] [place] [address] [facility] [address] documented in this encounter Visit Diagnoses Diagnosis Chronic Kidney Disease Pretransplant Recipient Evaluation Exam documented in this encounter Additional Health Concerns Assessment Noted Time PHQ-9 Depression Total Score: 3 04/07/2021 9:37 AM CDT documented as of this encounter Care Teams Clip Bolter And Wrapper Relationship Specialty Start Date End Date Elsewhere, Pcp PCP - General 09/17/19 documented as of this encounter
--- OUTSIDE RECORDS SUMMARY | 2022-05-25 13:02 | XMS_ITS | Encounter Summary ---
:1960 Author Organization [facility] Address [address] [place] [address] Care Team Providers Name Role Phone Elsewhere, Pcp Primary Care Provider Unavailable Reason for Referral Outpatient (Routine) - Authorized Specialty Diagnoses / Procedures Referred By Contact Refer red To Contact General Surgery Lydia Crowley [facility] [address] [place] [address] Referral ID Status Reason Start Date Expiration Date Visits V isits Requested Authorized [id number] Authorized 03/28/2022 03/28/2023 1 1 Reason for Visit Reason Comments Post-op Post op laparoscopic ventral hernia repair 02/14/22 Outpatient (Routine) - Closed Specialty Diagnoses / Procedures Referred By Contact Refer red To Contact General Surgery Lydia Crowley [facility] [address] [place] [address] Referral ID Status Reason Start Date Expiration Date Visits Requ ested Visits Authorized [id number] Closed 02/27/2022 02/27/2023 1 1 Encounter Details Date Type Department Care Team Description 03/28/2022 Office Visit Department of Lydia Crowley Herniorr haphy Ventral General Surgery in [place], P .ADavi Status Post (Primary [place], [place] [facility] [address] [facility], [place] [phone] Social History Tobacco Use Types Packs/Day Years [...] 12/23/2021 relatives? How often do you attend latter day or zoroastrianism 1 to 4 times per year 12/23/2021 services? Do you belong to any clubs or organizations such No 12/23/2021 as latter day groups, unions, fraternal or athletic groups, or [...] Sign Reading Time Taken Comments Blood Pressure 177/88 03/28/2022 11:03 AM CDT Pulse 117 03/28/2022 10:49 AM CDT Temperature 36.4 ??C (97.5 ??F) 03/28/2022 10:49 AM CDT Respiratory Rate - - Oxygen Saturation - - Inhaled Oxygen Concentration - - Weight - - Height - - Body Mass Index - - documented in this encounter Progress Notes Lydia Crowley [facility].A[facility] P.A[facility] - 03/28/2022 11:00 AM CDT SUBJECTIVE CHIEF COMPLAINT/REASON FOR VISIT Post-Operative Visit Referring provider: Dr. Cresencio Chen Status postoperative laparoscopic assisted midline ventral hernia repair with mesh performed on 2021 Postoperative day 6 weeks. HISTORY OF PRESENT ILLNESS Shabnam Wray is a very pleasant 61 y.o. female seen in postoperative follow-up. Patient notes she has been doing and feeling well since her last appointment. Her only concern today is some faint erythema which has developed overlying her midline ventral hernia incision. She mentions she is not having any pain associated with this change and is no longer having any postoperative pain in general.All other postoperative parameters are within normal limits. Tolerating diet without nausea or vomiting, or increased distention. Having regular bowel movement and denies constipation or diarrhea. Urinating without complication and denies dysuria, frequency, urgency. Has been increasing activity levels but then avoiding lifting. Lifting restrictions include no more than 15 lb for 12 weeks time. Denies fevers, chills, chest pain, shortness of breath and peripheral edema of the lower extremities. Brings forth no other complaints or concerns. She is looking forward to traveling to [place] for about 1 months time here in the near future. She has friends that live about [place] and she is excited to get away for a vacation. OBJECTIVE Vitals: 03/28/22 1049 BP: (!) 178/98 Pulse: (!) 117 Temp: 36.4 ??C TempSrc: Temporal PHYSICAL EXAMINATION General: Awake, alert, oriented. In no acute distress. Sitting comfortably in examination room. HEENT: Head normocephalic, atraumatic. Symmetrical facial features. RESP: Regular rate and rhythm. Normal respiratory effort. Abdomen: Soft, non-distended. Nontender to palpation. No generalized tenderness. No focal tenderness. No rebound tenderness; no guarding. No organomegaly or masses. Skin: Incision---Abdominal incisions clean, dry and intact. About the midline ventral hernia repair incision, there is something erythema around the incision without associated induration, drainage, bleeding, warmth. Incision is intact. Faint erythema extends towards the left lateral aspect of the incision more than the right. It extends about 2.5 cm to the left lateral aspect of the incision. Mild seroma formation noted at the superior aspect of the midline incision has improved today. All other incisions healing appropriately without erythema, induration, drainage, bleeding, warmth. No ecchymosis. Extremities: Nontender without gross edema present. Psychiatric: Normal affect, pleasant and cooperative. DIAGNOSTICS I have reviewed this patient's laboratory and diagnostic results. ASSESSMENT / PLAN There are no diagnoses linked to this encounter. A 61-year-old female status postoperative laparoscopic-assisted midline ventral hernia repair with mesh; stable, postoperative day 6 weeks. PLAN: Shabnam Wray is doing well postoperatively. She has developed some faint erythema about her midline superior ventral hernia repair incision; a moderate sized seroma was 1st noted at this locationbut that has decreased in size today; this change is not accompanied by any increasing pain, incisional changes or dehiscence, induration, warmth or incisional drainage. At this time, I feel ongoing observation is appropriate. She is encouraged to return for an additional appointment if she notes any advancing erythema, worsening erythema, warmth, induration, drainage from her incision or increasing pain symptoms, fever or the like. She was acceptable and agreeable to this plan. We reviewed ongoing postoperative parameters including pain management with [id number]-[id number] Tylenol as needed, ongoing incision care, and ongoing activity parameters including reviewed the lifting restrictions of no more than 15 lb for 12 weeks' time. She will return in approximately 6 weeks time for an additional postope rative visit, sooner if needed. She is encouraged to contact us with any questions or concerns that arise between now and her next follow-up appointment. Lydia Crowley P.A.-C., P.A. documented in this encounter Plan of Treatment Upcoming Encounters Date Type Specialty Care Team Description 06/01/2022 Telemedicine Pharmacy An Nicholas APRN, C.N.P., Clement., M.S.N. [address] [place] [address] [phone] (Wo rk) 07/31/2022 Lab Laboratory Medicine Tony Rubalcava M. B., Sydnie, MDebra [address] [place] [address] [phone] (Nicolas wen) 07/31/2022 Lab Laboratory Medicine Tony Rubalcava M. B., Sydnie, Mukund [address] [place] [address] [phone] (Nicolas wen) 07/31/2022 Office Visit Transplant Tony Rubalcava M.B., Sydnie, MDebra [address] [place] [address] [phone] (Nicolas wen) 07/31/2022 Appointment Radiology Tony Rubalcava M.B., Sydnie, MDebra [address] [place] [address] [phone] (Nicolas wen) 08/01/2022 Office Visit Transplant Tony Rubalcava M.B., Sydnie, MDebra [address] [place] [address] [phone] (Nicolas wen) 08/01/2022 Clinical Support Transplant Tony Rubalcava M.B., Sydnie, MDebra [address] [place] [address] [phone] (Nicolas wen) Scheduled Referrals Name Type Priority Associated Diagnoses Order [facility] Surgery Outpatient Referral Routine Expec rebecca: Post Op (clinic) 05/12/2022 (Approximate), Expires: 06/28/2023 documented as of this encounter Visit Diagnoses Diagnosis Herniorrhaphy Ventral Status Post - Prim alfie documented in this encounter Additional Health Concerns Assessment Noted Time PHQ-9 Depression Total Score: 3 04/07/2021 9:37 AM CDT documented as of this encounter Care Teams Setter Out Relationship Specialty Start Date End Date Elsewhere, Pcp PCP - General 09/17/19 documented as of this encounter
--- OUTSIDE RECORDS SUMMARY | 2022-05-25 13:02 | XMS_ITS | Encounter Summary ---
:1960 Author Organization [facility] Address [address] [place] [address] Care Team Providers Name Role Phone Elsewhere, Pcp Primary Care Provider Unavailable Encounter Details Date Type Department Care Team Description 03/09/2022 Orders Only Ata Dick Guilherme, Yvonne Bautista Kidney Disease; Center for M.D. Pretransplant Recipient Evaluation Exam Transplantation and [address] [place] [address] Clinical [facility] in [place], [place] [address] [place] [address] [place] [address] (Work) [phone] Social History Tobacco Use Types Packs/Day Years [...] How often do you attend christian or taoist 1 to 4 times per [...] An Nicholas APRN, C.N.P., D.N.P., M.S.N. [address] [place] [address] [phone] (Nicolas wen) 07/31/2022 Lab Laboratory Medicine Tony Rubalcava M. B., ChDaviBDavi, M.D. [address] [place] [address] [phone] (Nicolas wen) 07/31/2022 Lab Laboratory Medicine Tony Rubalcava M. B., ChDaviBDavi, M.D. [address] [place] [address] [phone] (Nicolas wen) 07/31/2022 Office Visit Transplant Tony Rubalcava M.B., ChBurke, MElvia. [address] [place] [address] [phone] (Nicolas wen) 07/31/2022 Appointment Radiology Tony Rubalcava M.B., Sydnie, Mukund [address] [place], [place] [phone] (Wo rk) 08/01/2022 Office Visit Transplant Tony Rubalcava M.B., Mukund [place] [address] [place], [place] [phone] (Wo rk) 08/01/2022 Clinical Support Transplant Tony Rubalcava M.B., Mukund [place] [address] [place], [place] 55 [phone] (Wo rk) documented as of this encounter Results HLA Class II SAB Antibody Screen (03/15/2022 5:30 AM CDT) [facility] Method Time Signature Class II SAB Positive Not Applicable 03/20/2022 DBB8 Overall Result 12:52 PM CDT SAB DRB1 NONE 03/20/2022 DBB8 Specificity 12:52 PM CDT SAB [id number] NONE 03/20/2022 DBB8 Specificity 12:52 PM CDT SAB DQB1 see below 03/20/2022 DBB8 Specificity 12:52 PM CDT Comment: 2(A*05:01;B*02:01)[4716], 2(A*03:01;B*02 :01)[256] Format: Serologic Eq.(DQA1;DQB1 Mol. All jorge)[Normalized MFI] NOTE: Data is displayed in descending or kristi by Mean Fluorescence Intensity (MFI). ??Serologic equivalents can be di splayed multiple times for different molecular alleles. SAB DPB1 Specificity see below 03/20/2022 12:52 PM CDT DBB8 Comment: 6(A*01:03;B*06:01)[996] Format: Serologic Eq.(DPA1;DPB1 Mol. All jorge)[Normalized MFI] NOTE: Data is displayed in descending or kristi by Mean Fluorescence Intensity (MFI). ??Serologic equivalents can be di splayed multiple times for different molecular alleles. ----ADDITIONAL INFORMATION---- Method: Luminex Flow Cytometry CLIA: [id number] ??CLIA Log Hooker: SHANTA LOYD MD,PhD Specimen Anatomical Collection Method Collection Time Receive d Time (Source) Location / / Volume Laterality Blood (Blood, 03/15/2022 5:30 AM 03/16/20 2:40 Venous) CDT PM CDT Resulting Agency Comment Mailed In Specimen Twin Vanegas M.D. LAB HLA ORDERABLES Performing Organization Address City/State/[facility] Code Phon e Number [facility] - [address] [place], [place] [address] [facility] [address] [place] [address] Laboratories-[facility] [address] HLA Class I SAB Antibody Screen (03/15/2022 5:30 AM CDT) [facility] Method Time Signature Class I SAB [...] 03/20/2022 12:20 PM CD T DBB8 Comment: 51(51:01)[4458], 49(49:01)[3919], 51(51: 02)[3579], 78(78:01)[2897], 38(38:01)[1274], 59(59: 01)[2525], 63(15:16)[2513], 52(52:01)[2289], 75(15: 02)[2236], 77(15:13)[2121], [...] ----ADDITIONAL INFORMATION---- Method: Luminex Flow Cytometry CLIA: [id number] ??CLIA Log Hooker: SHANTA LOYD MD,PhD Specimen Anatomical Collection Method Collection Time Receive d Time (Source) Location / / Volume Laterality Blood (Blood, 03/15/2022 5:30 AM 03/16/20 22 2:40 Venous) CDT PM CDT Resulting Agency Comment Mailed In Specimen Twin Vanegas M.D. LAB HLA ORDERABLES Performing Organization Address City/State/ZIP Code Phon e Number [facility] - [address] [place], [place] [address] [facility] [address] [place] [address] [facility] [address] documented in this encounter Visit Diagnoses Diagnosis Chronic Kidney Disease Pretransplant Recipient Evaluation Exam documented in this encounter Additional Health Concerns Assessment Noted Time PHQ-9 Depression Total Score: 3 04/07/2021 9:37 AM CDT documented as of this encounter Care Teams Sign Builder Relationship Specialty Start Date End Date Elsewhere, Pcp PCP - General 09/17/19 documented as of this encounter
--- OUTSIDE RECORDS SUMMARY | 2022-05-25 13:02 | XMS_ITS | Encounter Summary ---
:1960 Author Organization [facility] Address [address] [place] [address] Care Team Providers Name Role Phone Elsewhere, Pcp Primary Care Provider Unavailable Encounter Details Date Type Department Care Team Description 04/07/2022 Clinical Communication Ata Jones, Kristal Moses, Center for R.N. Transplantation and [address] [place] [address] Clinical [facility] in [place], [place] [address] [place] [address] [place] [phone] (Work) [phone] Social History Tobacco Use Types Packs/Day Years [...] How often do you attend jainism or lutheran 1 to 4 times per year 12/23/2021 [...] this encounter Miscellaneous Notes Telephone Encounter - Sary Jaeger R.N. 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 documented in this encounter Plan of Treatment Upcoming Encounters Date Type Specialty Care Team Description 06/01/2022 Telemedicine Pharmacy An Nicholas APRN, C.N.P., D.N.P., M.S.N. [address] [place] [address] [phone] (Wo behzad) 07/31/2022 Lab Laboratory Medicine Tony Rubalcava M. B., Ch.B., M.D. [address] [place] [address] [phone] (Wo behzad) 07/31/2022 Lab Laboratory Medicine Tony Rubalcava M. B., Sydnie, Mukund [address] [place] [address] [phone] (Wo rk) 07/31/2022 Office Visit Transplant Tony Rubalcava M.B., Sydnie, Mukund [address] [place] [address] [phone] (Wo rk) 07/31/2022 Appointment Radiology Tony Rubalcava M.B., Sydnie, Mukund [address] [place] [address] [phone] (Wo rk) 08/01/2022 Office Visit Transplant Tony Rubalcava M.B., Sydnie, Mukund [address] [place] [address] [phone] (Wo rk) 08/01/2022 Clinical Support Transplant Tony Rubalcava M.B., Sydnie, Mukund [address] [place] [address] [phone] (Wo rk) documented as of this encounter Visit Diagnoses Not on filedocumented in this encounter Additional Health Concerns Assessment Noted Time PHQ-9 Depression Total Score: 3 04/07/2021 9:37 AM CDT documented as of this encounter Care Teams Filter Press Tender Relationship Specialty Start Date End Date Elsewhere, Pcp PCP - General 09/17/19 documented as of this encounter
--- OUTSIDE RECORDS SUMMARY | 2022-05-25 13:02 | XMS_ITS | Encounter Summary ---
:1960 Author Organization [facility] Address [address] [place] [phone] Care Team Providers Name Role Phone Elsewhere, Pcp Primary Care Provider Unavailable Encounter Details Date Type Department Care Team Description 04/06/2022 Anesthesia Event RST CESAR YOUNG OR Manish Rhodes M.D., Ph.D. [address] [place] [phone] 201 [facility] [address] [place] [address] [phone] [place] [phone] Anesthesia Record Procedure Summary Procedure Name Responsible Anesthesia Start Anesthesia Stop Anesthesiologist Time Time TRANSPLANT KIDNEY - Manish Rhodes M.D., 04/06/221924 RECIPIENT OF Ph.D. DONOR WITH BACK TABLE PREP KIDNEY ALLOGRAFT Events Date Time Event Comment 04/06/20221924 An Start Machine/Equipmen t Checked Infection Precautions Foll owed Procedure/Site Verified NPO Sta tus Verified Supine Standard ASA Mon itors Applied 1947 An Induction 1954 An Intubation 2012 Invasive catheter placement 2020 Turnover to Proceduralist 2020 Labs-Protocol 2032 Proc Start 2242 Proc Fin 2249 Turnover to ANE Staff 2252 Airway Removal Criteria Met 2252 Extubation/Airway Removed 2252 an stop data 2304 An End I completed my h andoff to the receiving staff during whi ch we 1. Identified the patient 2. Ident ified the responsible provider 3. Revi ewed the pertinent medical history 4. Discussed the surgical course 5. Review ed intra-op anesthesia management and i ssues during anesthesia 6. Set expectati ons for post-procedure period 7. Allowe d opportunity for questions and ac knowledgement of understanding. Name Total fentanyl injection 50 mcg/mL 150 mcg lidocaine 2% (mg) injection 100 mg propofol 10 mg/mL 130 mg cisatracurium 2 mg/mL injection 36 mg phenylephrine 100 mcg/mL injection 100 mcg furosemide injection 100 mg (LASIX) 100 mg heparin 10 Units/mL in NaCl 0.9% 100 mL flush solution 0 mL mannitol 25 g in sterile water IVPB 0 g methylPREDNISolone sod succinate (PF) 500 mg in NaCl 0 .9% IVPB 500 mg ceFAZolin injection 2 g (ANCEF) 2 g ePHEDrine PF 5 mg/mL syringe injection 5 mg basiliximab 20 mg in NaCl 0.9% IVPB (SIMULECT) 20 mg HYDROmorphone PF 2 mg/mL injection 1.2 mg mannitol 25% injection 25 g ondansetron 4 mg/2 mL injection 4 mg glycopyrrolate 0.2 mg/mL injection 0.8 mg neostigmine injection 1 mg/mL 5 mg labetalol 5 mg/mL injection 20 mg lactated ringers free drip 1,700 mL lactated ringers free drip 1,200 mL Agents No agents on file. Blood No blood administrations on file. Lines, Drains, and Airways Type Details Placement Removal Hemodialysis AV Access Placement Date: 05/06/19 05/06/19 0000 by (present upon arrival to Xin Proctor, pacu) R.N. Ureteral Drain/Stent 09/16/19; 1700; Right; 09/16/19 1700 by Other (Comment) Soraya Garcia (Internal) Camron Mascorro Percutaneous Access 12/23/20; 08; 12/23/20 08 by Site Temporary (non-tunneled, Cesar Ybarra, non-implanted); Yes; R.N. Yes; Yes; Yes; Chlorhexidine (Preferred); Yes; Cap, Gloves, Gown, Large drape, Mask (Clinician), Mask (All others in room); Jayesh; (fistula right arm) Percutaneous Access 12/23/20; 0940; 12/23/20 0940 by Site Temporary (non-tunneled, Cesar Ybarra, non-implanted); Yes; R.N. (fistula right arm) Percutaneous Access 01/18/21; 1529; Arterial 01/18/21 1529 by Site and Venous (AV Dialysis Stecklein, Rubina Fistula ); Yes; Yes; J, R.N. Yes; Yes; Chlorhexidine (Preferred); Yes; Cap, Gloves, Gown, Large drape, Mask (Clinician), Mask (All others in room); N/A; Dr. Canseco ; woggle Wound 04/06/22; N; Incision; 04/06/22 0000 by Abdomen; Left, Lower; Evelia Barrios kidney txp, left; fredi S, R.NDavi strips and primapore Puncture 1; 04/07/22 12/10/20 1524 by 04/07/22 0000 b y Joshua Canada , R.N. Hemodialysis AV Access Placement Date: 05/06/19 0000 by 04/07/22 0000 by 05/06/19; Removal Date: Harini Lim Sack ett, Colin J, 04/07/22 (duplicate LDA) AnnNDavi R.N. Puncture 12/10/20; 1512; No; 12/10/20 1512 by 04/07/22 00 00 by Neck; Left; 04/07/22 Radha Landin Sackett, Colin J, R.N. R.N. Indwelling Urinary Placement Date: 02/14/22 1145 by 04/06/22 [phone] by Catheter 02/14/22; Placement Deo Coffman Armstrong, Kaitlyn Time: 1145; Inserted by: Camron Hines RRalf Coffman, WILMER; Type: Double-lumen, Non-latex; Size: 16 Fr.; Balloon Size: 10 mL; Urine Returned: Yes; Removal Date: 04/06/22; Removal Time: 2038; Removal Reason: No longer in place (no pena in place upon arrival, removing lda) Wound 02/14/22; 1415; N; 02/14/22 1415 by 04/07/22 000 0 by Incision; Abdomen; El Refugio, Deo A, Col Dread in J, Medial, Upper; Dermabond R.N. R.N. on port sites x 3, Prevena Wound Vac; 04/07/22 Wound 02/14/22; 1529; Skin 02/14/22 1529 by 04/07/22 0 000 by tear Type 2 (partial ChewHanh E, Fracisco Canada, flap loss); Hand; Right; R.N. R.N. Skin tear during transfer in OR; Gauze covered with tegaderm; 04/07/22 Peripheral IV Placement Date: 04/06/221930 by 04/07/222233 b y 04/06/22; Placement Ivelisse Marsh Reed, Alexan der M, Time: 1930; Orientation: M.D. R.N. Left; Location: Arm; Technique: Ultrasound guidance; Removal Date: 04/07/22; Removal Time: 2233 Peripheral IV Placement Date: 04/06/221940 by 04/07/22 0000 b y 04/06/22; Placement Ivelisse Marsh Sackett, Col in J, Time: 1940; Catheter M.D. R.N. Size: 18 G; Orientation: Right; Location: Foot; Technique: Transillumination; Removal Date: 04/07/22; Removal Reason: Leaking ETT Placement Date: 04/06/221954 by 04/06/222252 b y 04/06/22; Placement Ivelisse Marsh Otta, Jaelin J, Time: 1954 (created via Mukund Duval procedure documentation); Mask Ventilation: Difficult mask (ie. two-handed) with oral airway; Type: Standard ETT; Single Lumen Tube Size: 7 mm; Cuffed: Yes; Blade Size: Ashford 2; Location: Oral; Grade View: Grade 2A; Insertion Attempts: 1; Placement Verification: Bilateral breath sounds, Positive ETCO2, Symmetrical chest wall movement; Removal Date: 04/06/22; Removal Time: 2252 Indwelling Urinary Placement Date: 04/06/221955 by 04/09/22 094 6 by Catheter 04/06/22; Placement Barrios, EveliaJoshua Fernandez, Time: 1955; Inserted by: Camron Hines R.N., dr.; Type: Non-latex (silicone); Size: 18 Fr. (tip of stent sewn to pena); Balloon Size: 5 mL (filled with 10cc); Urine Returned: Yes; Removal Date: 04/09/22; Removal Time: 945; Removal Reason: Per order Arterial Line Placement Date: 04/06/222009 by 04/07/22 004 b y 04/06/22; Placemnt Time: Ivelisse Marsh, Ying Fitch, 2009 (created via M.D. R.N. procedure documentation); Size: 20 G; Orientation: Left; Location: Radial; Site Prep: Chlorhexidine (Preferred); Technique: Anatomical landmarks; Insertion Attempts: 1; Securement: Securement dressing, Securement device; Removal Date: 04/07/22; Removal Time: 39; Removal Reason: Completion of therapy documented in this encounter Social History Tobacco Use Types Packs/Day Years [...] How often do you attend mosque or adventist 1 to 4 times per [...] AM CDT documented as of this encounter OR Notes Anesthesia Postprocedure Evaluation - Akhil Mccord M.D. - 04/06/2022 11:05 PM CDT Patient: Shabnam Wray Procedure Summary Date: 04/06/22 Room / Location: [address] [facility] / [facility] in [place], [place] Anesthesia Start: 1924 Anesthesia Stop: 2304 Procedure: TRANSPLANT KIDNEY - RECIPIENT OF DONOR WITH BACK TABLE PREP KIDNEY ALLOGRAFT Diagnosis: Chronic Kidney Disease (Chronic Kidney Disease [N18.9]) Providers: Nehemias Felipe M.D. Responsible Provider: Manish Rhodes M.D., Ph.D. Anesthesia Type: general ASA Status: 3 Anesthesia Type: general Last vitals Vitals Value Taken Time BP 159/91 04/07/22 0015 Temp 36.5 ??C 04/06/22 2304 Pulse 63 04/07/22 0017 Resp 12 04/07/22 0017 SpO2 97 % 04/07/22 0017 Vitals shown include unvalidated device data. Please reference Vitals flowsheet for most recent vital signs. Anesthesia Post Evaluation Patient Disposition: general care unit Cardiovascular status: hemodynamics (HR & BP) acceptable Respiratory status: patent airway with spontaneous effort Temperature: normothermic Oxygen requirements: nasal cannula Level of consciousness: awake Pain score: pain adequately controlled and/or at baseline Post Op nausea/vomiting: none Hydration status: euvolemic Comments: Patient required Labetalol x 2 doses in PACU for systolic BP >180 Anesthesia Procedure Notes - Ivelisse Marsh M.D. - 04/06/2022 8:22 PM CDT Associated Order(s): Airway Airway Date/Time: 04/06/2022 7:55 PM Performed by: Ivelisse Marsh M.D. Authorized by: Haim Arredondo M.D. Patient location during procedure: OR / Procedure Area PROCEDURE DETAILS: Mask difficulty assessment: difficult mask (i.e.two-handed) with oral airway Final airway type: direct laryngoscopy, intubation Laryngeal Manipulation: no Final best view of glottic structures - Cormack/Lehane Score: grade 2A ETT location: oral Adult blade type: Ashford 2 Adult tube size: 7 Adult ETT distance at teeth/gum: 22 Oral tube type: standard ETT Cuffed: yes Number of attempt to successful placement: 1 Airway confirmation: bilateral breath sounds, positive ETCO2 and bilateral chest rise Other previous techniques attempted: none PRE PROCEDURE DETAILS: Pre evaluation for airway management: procedure Urgency: elective Preoxygenation: bag valve mask SEDATION / ANESTHESIA Anesthesia method: anesthesia POST PROCEDURE DETAILS: Procedure outcome: successful Airway event: no complications ATTESTATION STATEMENT A resident or fellow participated in the procedure, and the strategic solutions consultant was present for the entire procedure. Anesthesia Procedure Notes - Ivelisse Marsh M.D. - 04/06/2022 8:18 PM CDT Associated Order(s): Invasive Catheter Invasive Catheter Date/Time: 04/06/2022 8:10 PM Performed by: Ivelisse Marsh M.D. Authorized by: Haim Arredondo M.D. Care team members present 1. Ivelisse Marsh M.D. 2. Haim Arredondo M.D. Location: OR PROCEDURE DETAILS: Line type: arterial Laterality: left Location: radial Location details: new site Age group: adult Catheter diameter: 20 Ga Technique: palpation Monitored: yes Number of attempts: 1 UNIVERSAL PROTOCOL All [...] PRE-PROCEDURE DETAILS: Appropriate hand hygiene, gown, cap, mask, protective eyewear, sterile gloves, skin preparation, sterile drape, and strict aseptic technique were utilized as applicable for the procedure.: yes Skin preparation: chlorhexidine SEDATION / ANESTHESIA Anesthesia method: none POST-PROCEDURE DETAILS: Procedure completed successfully: yes Line secured: secured with sutureless device Chlorhexidine disc around insertion site and under catheter with slight turn: yes Complications - arterial: none ATTESTATION STATEMENT The strategic solutions consultant saw and evaluated the patient and discussed the findings and plan with the resident or fellow. The strategic solutions consultant agrees with the findings and plan. The strategic solutions consultant was present for the entireprocedure(s). Anesthesia Preprocedure Evaluation - Haim Arredondo M.D. - 04/06/2022 6:47 PM CDT Preprocedure Anesthesia & H&P Assessment Procedure Summary Date/Time: 04/06/221907 Procedure: TRANSPLANT KIDNEY - RECIPIENT OF DONOR WITH BACK TABLE PREP KIDNEY ALLOGRAFT Diagnosis: Chronic Kidney Disease [N18.9] Pre-op diagnosis: Chronic Kidney Disease [N18.9] Location: [place] [address] / [facility] in [place], [place] Providers: Nehemias Felipe M.D. Pertinent components of the patient's history including current problem list, medical history, surgical history, family history, social history, medications and allergies were reviewed. Present illnessand pre-op diagnosis were confirmed. The planned surgery / procedure was verified with the patient /legal guardian. 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) (+) Chronic Kidney Disease NOS (+) Chronic Kidney Disease Stage 4 Glomerular Filtration Rate 15-29 (HCC) (+) Chronic Kidney Disease Stage 5 Glomerular Filtration Rate Less Than 15 (HCC) (+) Failure Renal End Stage (HCC) (+) Hypertension And Chronic Kidney Disease Stage 1 To 4 PSYCH (+) Depression Major One Episode Full Remission (HCC) GENETICS (+) Hyperlipidemia HEME (+) Anticoagulant Therapy ID (+) COVID-19 Infection Other (+) Complication Kidney Transplant (HCC) (+) Transplant Renal (HCC) OBJECTIVE PHYSICAL EXAMINATION Airway (HEENT) Mallampati: III TM Distance: >3 FB Neck ROM: Full Mouth Opening: >3 cm Cardiovascular Rhythm: Regular Rate: Normal Cardiovascular Assessment: cardiovascular normal Pulmonary Pulmonary Assessment: Diminished General / Constitutional Constitutional Assessment: Obese General State of Health:: calm ASSESSMENT / PLAN ANESTHESIA PLAN ASA: 3 Anesthesia Plan: general Patient seen and allergies reviewed, anesthesia plan and risks discussed directly with patient /legal guardian or through an licensed tax consultant. Risks/Benefits/Alternatives of Blood transfusion discussed with patient / legal guardian, including an opportunity to ask questions and/or decline some or all transfusion therapies. The patient / legalguardian consented to the use of all blood products, as deemed medically necessary Approval to Proceed: approved for anesthesia documented in this encounter Plan of Treatment Upcoming Encounters Date Type Specialty Care Team Description 06/01/2022 Telemedicine Pharmacy An Nicholas APRN C.N.P., D.N.P., M.S.N. [address] [place] [address] [phone] (Nicolas wen) 07/31/2022 Lab Laboratory Medicine Tony Rubalcava M. B., ChBurke, MDebra [address] [place] [address] [phone] (Nicolas wen) 07/31/2022 Lab Laboratory Medicine Tony Rubalcava M. B., Ch.BDavi, MDebra [address] [place] [address] [phone] (Nicolas wen) 07/31/2022 Office Visit Transplant Tony Rubalcava M.B., Mukund Otoole [address] [place] [address] [phone] (Wo rk) 07/31/2022 Appointment Radiology Tony Rubalcava M.B., Mukund Otoole [address] [place] [address] [phone] (Wo rk) 08/01/2022 Office Visit Transplant Tony Rubalcava M.B., Mukund Otoole [address] [place] [address] [phone] (Wo rk) 08/01/2022 Clinical Support Transplant Tony Rubalcava M.B., Mukund Otoole [address] [place] [address] [phone] (Wo rk) documented as of this encounter Procedures Procedure Name Priority Date/Time Associated Comments Diagnosis MC ANE INVASIVE Routine 04/06/2022 8:10 PM Result s for this CATHETER CDT procedure are i n the results section. AIRWAY MANAGEMENT Routine 04/06/2022 7:55 PM Resu lts for this CDT procedure are i n the results section. documented in this encounter Results Invasive Catheter (04/06/2022 8:10 PM CDT) Narrative [...] Complications - arterial: none ATTESTATION STATEMENT The strategic solutions consultant saw and evaluated the pat ient and discussed the findings and plan with the resident or fellow. e strategic solutions consultant agrees with the findings and plan. The strategic solutions consultant was pr esent for the entire [...] fellow participated in the procedure, and the strategic solutions consultant was present for the entire procedure. Haim Arredondo M.D. ANESTHESIA ORDERABLES documented in this encounter Visit Diagnoses Not on filedocumented in this encounter Administered Medications Inactive Administered Medications - up to 3 most recent administrations Medication Order MAR Action Action Date Dose Rate Site basiliximab 20 mg in NaCl 0.9% IVPB New Bag 04/06/2022 8:35 PM CDT 20 mg (SIMULECT) 20 mg, intravenous, at 110 mL/hr, Administer over 30 Minutes, Once, On Elizabeth 04/06/22 at 1900, For 1 dose, Intra-Op, Inform pharmacy to prepare ceFAZolin injection 2 g (ANCEF) Given 04/06/2022 8:22 PM CDT 2 g 2 g, intravenous, Once, On Elizabeth 04/06/22 at 1900, For 1 dose, Intra-Op, Preoperatively within 1 hour prior to surgical incision If needed, reconstitute vial per package insert instructions. See IVAG for administration guidelines. , Drug Monitoring Program: Pharmacist to adjust medication dosing based on indication and drug clearance factors., Indications: Prophylaxis, surgical CISatracurium injection (NIMBEX) Given 04/06/2022 10:00 PM CDT 6 mg intravenous, As needed, Starting on Elizabeth 04/06/22 at 1948, Anesthesia Intra-op Given 04/06/2022 9:37 PM CDT 6 mg Given 04/06/2022 9:06 PM CDT 4 mg ePHEDrine (PF) injection Given 04/06/2022 8:30 PM CDT 5 mg intravenous, As needed, Starting on Elizabeth 04/06/22 at 2030, Anesthesia Intra-op fentaNYL injection (SUBLIMAZE) Given 04/06/2022 8:35 PM CDT 50 mcg intravenous, As needed, Starting on Elizabeth 04/06/22 at 1948, Anesthesia Intra-op Given 04/06/2022 7:48 PM CDT 100 mcg furosemide injection 100 mg (LASIX) Given 04/06/2022 9:35 PM CDT 100 mg 100 mg, intravenous, Once, On Elizabeth 04/06/22 at 1815, For 1 dose, Intra-Op, Send with patient to operating room glycopyrrolate injection (ROBINUL) Given 04/06/2022 10:29 PM CDT 0.8 mg intravenous, As needed, Starting on Elizabeth 04/06/22 at 2229, Anesthesia Intra-op HYDROmorphone (PF) injection (DILAUDID) Given 04/06/2022 9:58 PM CDT 0.4 mg intravenous, As needed, Starting on Elizabeth 04/06/22 at 2047, Anesthesia Intra-op Given 04/06/2022 9:27 PM CDT 0.4 mg Given 04/06/2022 8:47 PM CDT 0.4 mg labetalol injection (NORMODYNE,TRANDATE) Given 04/07/2022 12:00 AM 10 mg intravenous, As needed, Starting on Elizabeth 04/06/22 CDT at 2253, Anesthesia Intra-op Given 04/06/2022 11:33 PM CDT 5 mg Given 04/06/2022 10:53 PM CDT 5 mg lactated ringers New Bag 04/06/2022 9:57 PM CDT intravenous, Continuous Infusion: Per Instructions PRN, Starting on Elizabeth 04/06/22 at 2000, Anesthesia Intra-op New Bag 04/06/2022 7:33 PM CDT lactated ringers New Bag 04/06/2022 9:16 PM CDT intravenous, Continuous Infusion: Per Instructions PRN, Starting on Elizabeth 04/06/22 at 2000, Anesthesia Intra-op New Bag 04/06/2022 8:00 PM CDT lidocaine (PF) (cardiac) injection Given 04/06/2022 7:48 PM CDT 100 mg intravenous, As needed, Starting on Elizabeth 04/06/22 at 1948, Anesthesia Intra-op mannitol injection Given 04/06/2022 9:35 PM CDT 25 g intravenous, As needed, Starting on Elizabeth 04/06/22 at 2135, Anesthesia Intra-op methylPREDNISolone sod succinate (PF) 500 New Bag 04/06/2022 8 :19 PM CDT 500 mg mg in NaCl 0.9% IVPB 500 mg, intravenous, at 108-216 mL/hr, Administer over 15-30 Minutes, Once, On Elizabeth 04/06/22 at 1900, For 1 dose, Intra-Op, Send with patient to operating room neostigmine methylsulfate injection Given 04/06/2022 10:29 PM CD T 5 mg (BLOXIVERZ) intravenous, As needed, Starting on Elizabeth 04/06/22 at 2229, Anesthesia Intra-op ondansetron (PF) injection (ZOFRAN) Given 04/06/2022 10:21 PM CDT 4 mg intravenous, As needed, Starting on Elizabeth 04/06/22 at 2221, Anesthesia Intra-op phenylephrine injection Given 04/06/2022 7:48 PM CDT 100 mcg intravenous, As needed, Starting on Elizabeth 04/06/22 at 1948, Anesthesia Intra-op propofoL injection (DIPRIVAN) Given 04/06/2022 7:48 PM CDT 130 mg intravenous, As needed, Starting on Elizabeth 04/06/22 at 1948, Anesthesia Intra-op documented in this encounter Additional Health Concerns Assessment Noted Time PHQ-9 Depression Total Score: 3 04/07/2021 9:37 AM CDT documented as of this encounter Care Teams Software Quality Test Engineer Relationship Specialty Start Date End Date Elsewhere, Pcp PCP - General 09/17/19 documented as of this encounter
--- OUTSIDE RECORDS SUMMARY | 2022-05-25 13:02 | XMS_ITS | Encounter Summary ---
:1960 Author Organization [facility] Address [address] [place] [address] Care Team Providers Name Role Phone Elsewhere, Pcp Primary Care Provider Unavailable Encounter Details Date Type Department Care Team Description 03/28/2022 Clinical Communication Department of General Gadient, Stephanie Surgery in [facility], C.M.A[address] [phone] Social History Tobacco Use Types Packs/Day Years [...] 12/23/2021 relatives? How often do you attend taoist or adventism 1 to 4 times per year 12/23/2021 services? Do you belong to any clubs or organizations such No 12/23/2021 as taoist groups, unions, fraternal or athletic groups, or [...] encounter Miscellaneous Notes Telephone Encounter - Stephanie Marion C.M.A. - 03/28/2022 11:07 AM CDT BP Readings from Last 3 Encounters: 03/28/22 1103 (!) 177/88 03/28/22 1049 (!) 178/98 02/27/22 1015 146/77 02/27/22 0952 155/87 02/22/22 1356 (!) 150/93 Patient's PCP is elsewhere. Patient advised to contact PCP regarding her elevated blood pressure. documented in this encounter Plan of Treatment Upcoming Encounters Date Type Specialty Care Team Description 06/01/2022 Telemedicine Pharmacy An Nicholas APRN C.N.P., D.N.P., M.S.N. [address] [place] [address] [phone] (Nicolas wen) 07/31/2022 Lab Laboratory Medicine Tony Rubalcava M. B., Ch.BDavi, M.D. [address] [place] [address] [phone] (Nicolas wen) 07/31/2022 Lab Laboratory Medicine Tony Rubalcava M. B., Sydnie, Mukund [address] [place] [address] [phone] (Wo rk) 07/31/2022 Office Visit Transplant Tony Rubalcava M.B., Sydnie, Mukund [address] [place] [address] [phone] (Wo rk) 07/31/2022 Appointment Radiology Tony Rubalcava M.B., Sydnie, Mukund [address] [place] [address] [phone] (Wo rk) 08/01/2022 Office Visit Transplant Tony Rubalcava M.B., Syndie, Mukund [address] [place] [address] [phone] (Wo rk) 08/01/2022 Clinical Support Transplant Tony Rubalcava M.B., Sydnie, Mukund [address] [place] [address] [phone] (Wo rk) documented as of this encounter Visit Diagnoses Not on filedocumented in this encounter Additional Health Concerns Assessment Noted Time PHQ-9 Depression Total Score: 3 04/07/2021 9:37 AM CDT documented as of this encounter Care Teams Discovery Manager Relationship Specialty Start Date End Date Elsewhere, Pcp PCP - General 09/17/19 documented as of this encounter
--- OUTSIDE RECORDS SUMMARY | 2022-05-25 13:03 | XMS_ITS | Encounter Summary ---
:1960 Author Organization [facility] Address [address] [place] [address] Care Team Providers Name Role Phone Elsewhere, Pcp Primary Care Provider Unavailable Encounter Details Date Type Department Care Team Description 01/30/2022 Documentation Division of Nephrology and Josr Martínez Hypertension in [place], ., D.O. [place] [address] [facility] [address] [place] [phone] (Wo rk) Social History Tobacco Use Types [...] 12/23/2021 relatives? How often do you attend restorationist or alevism 1 to 4 times per year 12/23/2021 services? Do you belong to any clubs or organizations such No 12/23/2021 as restorationist groups, unions, fraternal or athletic groups, or [...] place to sleep or slept in a chcf (including now)? Education Answer Date Recorded What is the highest level of school you have GED or equivale nt 01/26/2019 completed or the highest degree you have received? Sex Assigned at Date Recorded Female 12/23/2021 4:18 AM CDT documented as of this encounter Progress Notes Steve Martínez Jr., D.O. - 01/30/2022 8:17 AM CDT Care coordination: The scheduled hernia appt in [place] was cancelled and she cannot call to reschedule until February. She is a [facility] patient. She is on warfarin. Her hernia is more symptomatic and is an umbilical hernia. I discussed the [facility] may feel she is too complex, but given her stable state (on transplant list) residual kidney function and excellent functional status, I believe she is stable for outpatients hernia repair opinion. She has had general anesthesia numerous times an is optimized for anesthesia (OKA) documented in this encounter Plan of Treatment Upcoming Encounters Date Type Specialty Care Team Description 06/01/2022 Telemedicine Pharmacy An Nicholas APRN, C.N.P., D.N.P., M.S.N. [address] [place] [address] 55 [phone] (Wo rk) 07/31/2022 Lab Laboratory Medicine Tony Rubalcava M. B., Ch.Maurice, M.Whitney [address] [place] [address] 55 [phone] (Wo rk) 07/31/2022 Lab Laboratory Medicine Tony Rubalcava M. B., Sydnie, Mukund [address] [place] [address] 55 [phone] (Wo rk) 07/31/2022 Office Visit Transplant Tony Rubalcava M.B., Sydnie, Mukund [address] [place] [address] 55 [phone] (Wo rk) 07/31/2022 Appointment Radiology Tony Rubalcava M.B., Sydnie, Mukund [address] [place] [address] 55 [phone] (Wo rk) 08/01/2022 Office Visit Transplant Tony Rubalcava M.B., Sydnie, MDebra [address] [place] [address] 55 [phone] (Wo rk) 08/01/2022 Clinical Support Transplant Tony Rubalcava M.B., Sydnie, MDebra [address] [place] [address] 55 [phone] (Wo rk) documented as of this encounter Visit Diagnoses Not on filedocumented in this encounter Additional Health Concerns Assessment Noted Time PHQ-9 Depression Total Score: 3 04/07/2021 9:37 AM CDT documented as of this encounter Care Teams Mold Maker Apprentice Relationship Specialty Start Date End Date Elsewhere, Pcp PCP - General 09/17/19 documented as of this encounter
--- OUTSIDE RECORDS SUMMARY | 2022-05-25 13:03 | XMS_ITS | Encounter Summary ---
:1960 Author Organization [facility] Address [address] [place] [address] Care Team Providers Name Role Phone Elsewhere, Pcp Primary Care Provider Unavailable Reason for Referral Outpatient (Routine) - Closed Specialty Diagnoses / Procedures Referred By Contact Refer red To Contact General Surgery Lydia Crowley, [facility] Danial., P.A[facility] [address] [place] [address] Referral ID Status Reason Start Date Expiration Date Visits Requ ested Visits Authorized [id number] Closed 02/27/2022 02/27/2023 1 1 Reason for Visit Reason Comments Post-op Ventral hernia repair 2 Encounter Details Date Type Department Care Team Description 02/27/2022 Office Visit Department of Lydia Crowley Herniorr haphy Ventral General Surgery in Danial Belle., P .A. Status Post (Primary [address] [place]) [address] [place] [phone] Social History Tobacco Use Types Packs/Day Years [...] How often do you attend uatsdin or christianity 1 to 4 times per [...] Sign Reading Time Taken Comments Blood Pressure 146/77 02/27/2022 10:15 AM CDT Pulse 81 02/27/2022 10:15 AM CDT Temperature 36.5 ??C (97.7 ??F) 02/27/2022 9:52 AM CDT Respiratory Rate - - Oxygen Saturation - - Inhaled Oxygen Concentration - - Weight - - Height - - Body Mass Index - - documented in this encounter Patient Instructions Patient InstructionsLydia Crowley P.A.-C., P.A. - 02/27/2022 10:47 AM CDT Images from the original note were not included. Incision Care Remember: Follow-up visits allow your doctor to make sure your incision is healing well. Be sure to keep your appointments. Sutures (stitches), surgical kameron, adhesive tapes,or surgical glue may be used to close incisions. They also help stop bleeding and speed healing. Instead of sutures, your wound may have been closedwith special strips of tape called Steri-Strips. Treat these the same way you would sutures. To helpyour incision heal, follow the tips on this handout. Care for Steri-Strips the way you would sutures. Keeping Your Incision Clean and Dry Avoid doing things that could cause dirt or sweat to get on your incision. Don???t pick at scabs. They help protect the wound. Keep your incision out of water. Bathe or shower only as directed. To keep the wound dry when around water, cover it with a plastic bag or plastic wrap. You could alsouse rubber gloves to protect sutures on a hand. If sutures get damp, pat them dry. Wash your hands before changing a dressing. Changing Your Dressing Leave the dressing (bandage) in place until you are told to remove it or change it. Change it only as directed, using clean hands. After the first 48 hours the incision wound will have closed.At this point, leave the incision uncovered and open to the air. Cover your incision only if your clothing is rubbing it or causing irritation. Change your dressing if it gets wet or soiled. Call Your Health Care Provider If You Notice Any of These Signs: The wound opens spontaneously Increased soreness, pain, or tenderness after 24 hours A red streak, increased redness, or puffiness near the wound White, yellowish, or bad-smelling discharge from the wound Bleeding that can???t be stopped by applying pressure Steri-Strips fall off or stitches dissolve before the wound heals Fever above 101.0??F (38.3??C) ?? 8860-2389 [facility], [address] [place] [address], [place] [address]. All rights reserved. This information is not intended as a substitute for professional medical care. Always follow your healthcare professional's instructions. After Hernia Surgery You can usually go home the same day as surgery. To speed healing, take an active role in your recovery. The tips below can help: An ice pack helps reduce swelling. Reducing Swelling Early on, it???s common for the area around your incision to be swollen, bruised, and sore. To reduce swelling, put an ice pack or bag of frozen peas in a thin towel. Place the towel on the swollen area 3-5 times a day for 15-20 minutes at a time. Managing Pain Take any prescribed pain medications as directed. Be aware that some pain medications can cause constipation. So your doctor may also suggest a laxative or stool softener. Returning to Normal You can return to your normal routine as soon as you feel able. Just take it easy and follow these guidelines: Take short walks to improve circulation. Avoid heavy lifting for at least a week. Ask your doctor about driving and returning to work. You can begin having sex again when you feel ready. Following Up Be sure to keep all follow-up appointments with your doctor. These ensure you???re healing well. During visits, your stitches, kameron, or bandage may be removed. Call your doctor if you have any of the following: A large amount of swelling or bruising (some testicular swelling and bruising is normal) Fever over 101??F Bleeding Increasing pain, redness, or drainage Trouble urinating ?? 7101-2151 [facility], [address] [place] [address]. All rights reserved. This information is not intended as a substitute for professional medical care. Always follow your healthcare professional's instructions. documented in this encounter Progress Notes Lydia Crowley P.A.-C., P.A. - 02/27/2022 10:00 AM CDT SUBJECTIVE CHIEF COMPLAINT/REASON FOR VISIT Post-Operative Visit Referring provider: Dr. Cresencio Chen Status postoperative laparoscopic assisted midline ventral hernia repair with mesh performed on 2021 Postoperative day 13. HISTORY OF PRESENT ILLNESS Shabnam Wray is a very pleasant 61 y.o. female seen in postoperative follow-up. Patient endorses doing and feeling well since our visit last week. She mentions some mild discomfort along her midline incision, likely most related to kameron she states. Rates her pain today as a 2 to 3/10. Is utilizing Tylenol alone for pain control. She last used any prescription pain medications on postoperative day 2 or 3. Tolerating diet without nausea or vomiting, or increased distention. Having regular bowel movement and denies constipation or diarrhea currently; did experience constipation initially and utilized lftv-ncz-aupprek stool softeners. Urinating without complication and denies dysuria, frequency, urgency. Has been increasing activity levels but then avoiding lifting. Lifting restrictions include no more than 15 lb for 12 weeks time. Denies fevers, chills, chest pain, shortness of breath and peripheral edema of the lower extremities. Brings forth no other complaints or concerns. OBJECTIVE Vitals: 02/27/22 0952 02/27/22 1015 BP: 155/87 146/77 Pulse: 79 81 Temp: 36.5 ??C TempSrc: Temporal PainSc: 2 PainLoc: Abdomen PHYSICAL EXAMINATION General: Awake, alert, oriented. In no acute distress. Sitting comfortably in examination room. HEENT: Head normocephalic, atraumatic. Symmetrical facial features. RESP: Regular rate and rhythm. Normal respiratory effort. Lungs clear to auscultation bilaterally. No wheezes, rales, crackles, no cough. CV: Regular rate and rhythm. Normal S1, S2. Systolic murmur noted. Abdomen: Soft, non-distended. Mild and appropriate incisional tenderness to palpation. No generalized tenderness. No focal tenderness. No rebound tenderness; no guarding. No organomegaly or masses. Skin: Incision---Abdominal incisions clean, dry and intact. Incisions healing appropriately without erythema, induration, drainage, bleeding, warmth. No ecchymosis. Moderate seroma formation noted at the superior aspect of the midline incision. Ecchymosis resolving. [place] intact; all kameron removedtoday without complication. Tincture of benzoin and Steri-Strips applied. Extremities: Nontender without gross edema present. Psychiatric: Normal affect, pleasant and cooperative. DIAGNOSTICS I have reviewed this patient's laboratory and diagnostic results. ASSESSMENT / PLAN #1 Herniorrhaphy Ventral Status Post Other orders - General Surgery Post Op (clinic); Future; Expected date: 03/30/2022 A 61-year-old female status postoperative laparoscopic-assisted midline ventral hernia repair with mesh; stable, postoperative day 13. PLAN: Shabnam Wray is doing well postoperatively. We discussed the operative findings and expected course from this point and she expressed understanding. All of her questions were answered to her satisfaction. She will contact us if she has any additional questions or concerns. The patient will follow-up with us in 1 month. We reviewed ongoing postoperative parameters including pain management with laji-ptc-[id number] Tylenol as needed, ongoing incision care, and ongoing activity parameters including reviewed the lifting restrictions of no more than 15 lb for 12 weeks' time. [place] are removed todaywithout complication. She is encouraged to contact us with any questions or concerns that arise between now and her next follow-up appointment. Lydia Crowley P.A.-C., P.A. documented in this encounter Plan of Treatment Upcoming Encounters Date Type Specialty Care Team Description 06/01/2022 Telemedicine Pharmacy An Nicholas APRN CDaviNDaviPDavi, D.N.P., M.S.N. [address] [place] [address] 55 [phone] (Wo rk) 07/31/2022 Lab Laboratory Medicine Tony Rubalcava M. B., ChBurke, M.Michelle. [address] [place] [address] 55 [phone] (Wo rk) 07/31/2022 Lab Laboratory Medicine Tony Rubalcava M. B., ChBurke, MElvia. [address] [place] [address] 55 [phone] (Wo rk) 07/31/2022 Office Visit Transplant Tony Rubalcava M.B., Sydnie, MElvia. [address] [place] [address] 55 [phone] (Wo rk) 07/31/2022 Appointment Radiology Tony Rubalcava M.B., Sydnie, Mukund [address] [place] [address] 55 [phone] (Wo rk) 08/01/2022 Office Visit Transplant Tony Rubalcava M.B., Mukund Otoole [address] [place] [address] 55 [phone] (Wo rk) 08/01/2022 Clinical Support Transplant Tony Rubalcava M.B., Sydnie, Mukund [address] [place] [address] 55 [phone] (Wo rk) Scheduled Referrals Name Type Priority Associated Diagnoses Order S [facility] General Surgery Outpatient Referral Routine Expec rebecca: Post Op (clinic) 03/30/2022 (Approximate), Expires: 05/30/2023 documented as of this encounter Visit Diagnoses Diagnosis Herniorrhaphy Ventral Status Post - Prim alfie documented in this encounter Additional Health Concerns Assessment Noted Time PHQ-9 Depression Total Score: 3 04/07/2021 9:37 AM CDT documented as of this encounter Care Teams Software Programmer Relationship Specialty Start Date End Date Elsewhere, Pcp PCP - General 09/17/19 documented as of this encounter
--- OUTSIDE RECORDS SUMMARY | 2022-05-25 13:03 | XMS_ITS | Encounter Summary ---
:1960 Author Organization [facility] Address [address] [place] [address] Care Team Providers Name Role Phone Elsewhere, Pcp Primary Care Provider Unavailable Encounter Details Date Type Department Care Team Description 01/31/2022 Clinical Communication [facility], Fidel , Surgery in [place], L.P.[address] [phone] Social History Tobacco Use Types Packs/Day Years [...] 12/23/2021 relatives? How often do you attend religious or jewish 1 to 4 times per year 12/23/2021 services? Do you belong to any clubs or organizations such No 12/23/2021 as religious groups, unions, fraternal or athletic groups, or [...] this encounter Miscellaneous Notes Telephone Encounter - Rema Roberts L.P.N. - 01/31/2022 3:06 PM CDT Scheduled laparoscopic ventral hernia repair with mesh on 02-14-22 to be performed by Pt will be setting up her own preoperative physical with her pcp in [place]. Pt has diayliss port right arm . documented in this encounter Plan of Treatment Upcoming Encounters Date Type Specialty Care Team Description 06/01/2022 Telemedicine Pharmacy An Nicholas APRN, C.N.P., D.N.P., M.S.N. [address] [place] [address] 55 [phone] (Wo rk) 07/31/2022 Lab Laboratory Medicine Tony Rubalcava M. B., Ch.B., MDebra [address] [place] [address] 55 [phone] (Wo rk) 07/31/2022 Lab Laboratory Medicine Tony Rubalcava M. B., Ch.Miguelito., MDebra [address] [place] [address] 55 [phone] (Wo rk) 07/31/2022 Office Visit Transplant Tony Rubalcava M.B., Sydnie, Mukund [address] [place] [address] [phone] (Wo rk) 07/31/2022 Appointment Radiology Tony Rubalcava M.B., Sydnie, Mukund [address] [place] [address] 55 [phone] (Wo rk) 08/01/2022 Office Visit Transplant Tony Rubalcava M.B., Sydnie, Mukund [address] [place] [address] 55 [phone] (Wo rk) 08/01/2022 Clinical Support Transplant Tony Rubalcava M.B., Sydnie, MDebra [address] [place] [address] 55 [phone] (Wo rk) documented as of this encounter Visit Diagnoses Not on filedocumented in this encounter Additional Health Concerns Assessment Noted Time PHQ-9 Depression Total Score: 3 04/07/2021 9:37 AM CDT documented as of this encounter Care Teams Soa Engineer Relationship Specialty Start Date End Date Elsewhere, Pcp PCP - General 09/17/19 documented as of this encounter
--- OUTSIDE RECORDS SUMMARY | 2022-05-25 13:03 | XMS_ITS | Encounter Summary ---
:1960 Author Organization [facility] Address [address] [place] [address] Care Team Providers Name Role Phone Elsewhere, Pcp Primary Care Provider Unavailable Reason for Visit Reason Comments Med Refill Encounter Details Date Type Department Care Team Description 02/22/2022 Refill Division of Nephrology and Tanya, Neymar Yap Jr., Med Refill Hypertension in [employer] [address] [facility] [address] [place] [address] [place] [address] [phone] Social History Tobacco Use Types Packs/Day Years [...] How often do you attend sikhism or rastafarian 1 to 4 times per year 12/23/2021 [...] this encounter Miscellaneous Notes Telephone Encounter - Ileana Shin - 02/22/2022 12:34 PM CDT Drug change request for: Sevelamer Carbonate 800 mg Forwarded to nurses documented in this encounter Plan of Treatment Upcoming Encounters Date Type Specialty Care Team Description 06/01/2022 Telemedicine Pharmacy An Nicholas APRN, C.N.P., D.N.P., M.S.N. [address] [place] [address] 55 [phone] (Nicolas wen) 07/31/2022 Lab Laboratory Medicine Tony Rubalcava M. B., Ch.B., M.D. [address] [place] [address] 55 [phone] (Nicolas wen) 07/31/2022 Lab Laboratory Medicine Tony Rubalcava M. B., Ch.B., M.D. [address] [place] [address] 55 [phone] (Nicolas wen) 07/31/2022 Office Visit Transplant Tony Rubalcava M.B., Sydnie, Mukund [address] [place] [address] 55 [phone] (Wo rk) 07/31/2022 Appointment Radiology Tony Rubalcava M.B., Sydnie, Mukund [address] [place] [address] 55 [phone] (Wo rk) 08/01/2022 Office Visit Transplant Tony Rubalcava M.B., Sydnie, Mukund [address] [place] [address] 55 [phone] (Wo rk) 08/01/2022 Clinical Support Transplant Tony Rubalcava M.B., Sydnie, Mukund [address] [place] [address] 55 [phone] (Wo rk) documented as of this encounter Visit Diagnoses Not on filedocumented in this encounter Additional Health Concerns Assessment Noted Time PHQ-9 Depression Total Score: 3 04/07/2021 9:37 AM CDT documented as of this encounter Care Teams Process Safety Management Engineer Relationship Specialty Start Date End Date Elsewhere, Pcp PCP - General 09/17/19 documented as of this encounter
--- OUTSIDE RECORDS SUMMARY | 2022-05-25 13:03 | XMS_ITS | Encounter Summary ---
:1960 Author Organization [facility] Address [address] [place] [address] Care Team Providers Name Role Phone Elsewhere, Pcp Primary Care Provider Unavailable Encounter Details Date Type Department Care Team Description 02/27/2022 Orders Only Division of Nephrology and Neymar Martínez Hypertension in [place], ., D.O. [place] 200 [facility] [address] [place] [phone] (Wo rk) Social History Tobacco Use Types [...] 12/23/2021 relatives? How often do you attend amish or jehovah's witness 1 to 4 times per year 12/23/2021 services? Do you belong to any clubs or organizations such No 12/23/2021 as amish groups, unions, fraternal or athletic groups, or [...] Nicholas APRN C.N.P., D.N.P., M.S.N. [address] [place] [address] 55 [phone] (Wo rk) 07/31/2022 Lab Laboratory Medicine oTny Rubalcava M. B., Sydnie, MDebra [address] [place] [address] 55 [phone] (Wo rk) 07/31/2022 Lab Laboratory Medicine Tony Rubalcava M. B., ChBurke, MDebra [address] [place] [address] 55 [phone] (Wo rk) 07/31/2022 Office Visit Transplant oTny Rubalcava M.B., Sydnie, MDebra [address] [place] [address] 55 [phone] (Wo rk) 07/31/2022 Appointment Radiology Tony Rubalcava M.B., ChBurkeMukund [address] [place] [address] 55 [phone] (Wo rk) 08/01/2022 Office Visit Transplant Tony Rubalcava M.B., Mukund Otoole [address] [place] [address] 55 [phone] (Wo rk) 08/01/2022 Clinical Support Transplant Tony Rubalcava M.B., Mukund [place] [address] [place] [address] [phone] (Wo rk) documented as of this encounter Visit Diagnoses Not on filedocumented in this encounter Additional Health Concerns Assessment Noted Time PHQ-9 Depression Total Score: 3 04/07/2021 9:37 AM CDT documented as of this encounter Care Teams Director Account Management Relationship Specialty Start Date End Date Elsewhere, Pcp PCP - General 09/17/19 documented as of this encounter
--- OUTSIDE RECORDS SUMMARY | 2022-05-25 13:03 | XMS_ITS | Encounter Summary ---
:1960 Author Organization [facility] Address [address] [place] [address] Care Team Providers Name Role Phone Elsewhere, Pcp Primary Care Provider Unavailable Encounter Details Date Type Department Care Team Description 02/14/2022 Surgery [facility] MAIN OR Cresencio Chen, LAPAROSCOPIC ASSISTED [place] MARIE M.D. VENTRAL HERNIA REPAIR [place] Marie WITH MESH [id number] [place] [phone] (Wo rk) Social History Tobacco Use Types [...] 12/23/2021 relatives? How often do you attend bahai or bahai 1 to 4 times per year 12/23/2021 services? Do you belong to any clubs or organizations such No 12/23/2021 as bahai groups, unions, fraternal or athletic groups, or [...] place to sleep or slept in a long term (including now)? Education Answer Date Recorded What is the highest level of school you have GED or equivale nt 01/26/2019 completed or the highest degree you have received? Sex Assigned at Date Recorded Female 12/23/2021 4:18 AM CDT documented as of this encounter Last Filed Vital Signs Vital Sign Reading Time Taken Comments Blood Pressure 197/102 02/14/2022 2:45 PM CDT Pulse 76 02/14/2022 2:45 PM CDT Temperature 35.7 ??C (96.3 ??F) 02/14/2022 10:16 AM CDT Respiratory Rate 16 02/14/2022 10:16 AM CDT Oxygen Saturation 100% 02/14/2022 2:45 PM CDT Inhaled Oxygen Concentration - - Weight 99.4 kg (219 lb 2.2 oz) 02/14/2022 10:16 AM CDT Height 165.4 cm (5' 5.12) 02/14/2022 10:16 AM CDT Body Mass Index 36.33 02/14/2022 10:16 AM CDT documented in this encounter Medications at [...] amoxicillin-pot On Sunday, 16 tablet 0 02/15/2022 clavulanate (AUGMENTIN) Sunday, and 250-125 mg per [...] mg tablet total) by mouth daily. sevelamer (RENVELA) 800 Take 1 tablet (800 90 tablet 3 06/2102/22/2022 mg tablet mg total) by mouth daily with breakfast. Take with largest meal of the day tacrolimus (PROGRAF) 1 Take 3 capsules (3 450 capsule 3 02/1704/07/2022 mg capsule mg total) by mouth every morning AND 2 capsules (2 mg total) every evening. oxyCODONE (ROXICODONE) Take 1-2 tablets 18 tablet 0 022 02/19/2022 5 mg immediate release (5-10 mg total) by tabletIndications: mouth every 6 (six) Acute Pain Exception hours as needed for pain for up to 5 days Indication: Acute Pain Exception. warfarin (COUMADIN) 2 Take 2-2.5 tablets 150 tablet 5 202104/07/2022 mg tablet (4-5 mg total) by mouth daily. 4.5 mg Mon-Sun-Sun, 4 mg other days documented as of this encounter H&P Notes Cresencio Chen M.D. - 02/14/2022 10:57 AM CDT INTERVAL HISTORY AND PHYSICAL PRE-PROCEDURE UPDATE H&P reviewed. The patient was examined and there are no significant changes to the H&P. Cresencio Chen M.D. Source Note - Chepe, Default Authenticator - 02/13/2022 1:06 PM CDT documented in this encounter OR Notes Op Note - Cresencio Chen M.D. - 02/14/2022 12:06 PM CDT Pre-op Diagnosis Hernia Ventral Recurrent Post-op Diagnosis Hernia Ventral Recurrent Findings Ventral hernia in supraumbilical location. Containing incarcerated omentum. Previously placed umbilical hernia mesh on inferior periphery of fascial defect. Hernia reduced and primary fascial suture closure performed. 20 x [address] mesh underlay placed laparoscopically. Complications None Operative Note Narrative INDICATIONS FOR PROCEDURE: Shabnam Wray is a 61 y.o. female who presented to Surgery Clinic for evaluation of an abdominal hernia. After discussion of treatment options, the patient elected to undergo repair of this hernia. I recommended a laparoscopic ventral hernia repair with mesh, possible open, in the operating room.The procedure details, expected recovery, postoperative activity restrictions, and potential complications were discussed. The procedure was scheduled on an elective outpatient basis. Please see my clinic consultation note for details. DESCRIPTION OF PROCEDURE: The patient was seen in pre-induction and identified using two independent identifiers. The procedure details, expected recovery, and potential complications were reviewed. Informed consent was confirmed. The surgical site was marked with the surgeon's initials. Anesthesia performed a preoperative titus sversus abdominis plane block with liposomal bupivacaine. The patient received preoperative antibiotics and was brought to the operating room and placed on the operating table in the supine position. The patient underwent general anesthesia induction and endotracheal intubation. A Bee catheter was placed. The patient was then prepped and draped in the usual sterile fashion, and a surgical time- out was performed. Procedural pause conducted to verify: ??Correct patient identity, procedure to be performed and as applicable, correct side and site, correct patient position and availability of implants, special equipment or special requirements. A small skin incision was made in the patient's left upper quadrant after injection of local anesthetic. The abdominal wall was dissected under scope visualization using a 5 mm optical port. Once the peritoneal cavity was entered, the abdomen was insufflated with carbon dioxide. Port entry site was inspected for intra-abdominal injury and none was seen. Two additional 5 mm ports were placed along theleft side of the abdomen. The left upper quadrant port site was upsized to a 12 mm port. The hernia defect was identified. It was found to be containing omentum, which was incarcerated but not ischemic. The hernia was reduced by lysing adhesions to the fascial edge and hernia sac. The hernia sac was excised. The abdominal wall fascia surrounding the hernia defect was dissected free from preperitoneal fat. The fascial defect measured 4 x 3 cm. On the inferior edge of the defect, scarred in previously placed mesh was identified. This was excised free from surrounding tissues and removed from the abdomen. The mesh was passed off the field as a specimen and sent to pathology for analysis. Next, a longitudinal skin incision was made in the upper abdominal midline overlying the hernia. Subcutaneous tissues were dissected with electrocautery down to the fascial defect. Fascial defect was cleared off circumferentially. The remainder of the hernia sac was excised. The fascia was then closedin a longitudinal orientation with interrupted 0 Vicryl transfascial sutures. We then returned to a laparoscopic approach. A 20 x 15 cm elliptical piece of Ventralight ST mesh was selected. It was rolled over a grasper and inserted into the abdomen through the 12 mm port. The mesh was unfurled in the abdomen. A Glenn Mazariegos needle was punctured through the abdominal wall at the center of the hernia defect. The suture attached to the Echo PS 2 mesh frame was grasped with the Glenn Aileen needle and pulled through the abdominal wall. This pulled the mesh up to the anterior abdominal wall. The mesh was centered on the hernia defect with good overlap onto normal tissues. The mesh was lying flat against the abdominal wall. The mesh was secured to the anterior abdominal wall using Opti Fix absorbable tacks. Tacks wereplaced circumferentially around the mesh with approximately 1 cm gap in between tacks. Additional tacks were placed on the anterior of the mesh around the fascial edges of the hernia defect. The mesh remained laying flat in good position. The Echo PS 2 frame was then detached from the mesh and removedfrom the abdomen. The abdomen was inspected for hemostasis, which was present. The ports were removed under scope visualization with no port site bleeding being identified. The abdomen was desufflated. The external oblique fascial layer at the 12 mm port site was closed using 0 Vicryl suture. The skin incisions were closed using subcuticular 4-0 Vicryl suture. Dermabond glue was applied to the port site incisions. Excess thinned out skin was trimmed away from the midline incision. The incision was thoroughly irrigated with normal saline. Small bleeders were cauterized. Hemostasis was achieved. The midline incision was closed with kameron and an incisional wound VAC was placed. The patient was placed in abdominal binder. The patient was awoken from anesthesia, extubated, and the Bee catheter removed. The patient was brought to the postanesthesia care unit in good condition. All counts were correct x2. Patient tolerated procedure well. Cresencio Chen M.D. documented in this encounter Miscellaneous Notes Result Encounter Note - Cresencio Chen M.D. - 02/15/2022 12:28 PM CDT I have reviewed the final pathology report and the identified diagnosis is consistent with the patient's clinical presentation. documented in this encounter Plan of Treatment Upcoming Encounters Date Type Specialty Care Team Description 06/01/2022 Telemedicine Pharmacy An Nicholas APRN C.N.P., D.N.P., M.S.N. [address] [place] [address] [phone] (Wo rk) 07/31/2022 Lab Laboratory Medicine Tony Rubalcava M. B., [place], [place] [address] [place] [address] [phone] (Wo rk) 07/31/2022 Lab Laboratory Medicine Tony Rubalcava M. B., [place], [place] [address] [place] [address] [phone] (Wo rk) 07/31/2022 Office Visit Transplant Tony Rubalcava M.B., [place], [place] [address] [place] [address] [phone] (Wo rk) 07/31/2022 Appointment Radiology Tony Rubalcava M.B., [place], [place] [address] [place] [address] [phone] (Wo rk) 08/01/2022 Office Visit Transplant Tony Rubalcava M.B., [place], [place] [address] [place] [address] [phone] (Wo rk) 08/01/2022 Clinical Support Transplant Tony Rubalcava M.B., [place], [place] [address] [place] [address] [phone] (Wo rk) Scheduled Referrals Name Type Priority Associated Diagnoses Order S [facility] Surgery Outpatient Referral Routine Expec rebecca: Post Op (clinic) 02/14/2022 (Approximate), Expires: 02/14/2025 documented as of this encounter Procedures Procedure Name Priority Date/Time Associated Diagnosis Comme nts ADULT OXYGEN THERAPY Routine 02/14/2022 2:42 PM CDT SURGICAL PATHOLOGY Routine 02/14/2022 1:48 PM Ventral Hernia R esults for this CDT Without Obstruction procedur e are in Or Gangrene the results section. LAPAROSCOPIC HERNIA 02/14/2022 11:10 Hernia Ventral REPAIR - VENTRAL AM CDT Recurrent PROTHROMBIN TIME STAT 02/14/2022 10:22 Results for this (PT), P AM CDT procedure are i n the results section. documented in this encounter Results Surgical Pathology (02/14/2022 1:48 PM CDT) Component Value Ref Test Analysis Performed At [facility] [email or web address] Range Method Time Signature 02/15/2022 ECLR 11:56 AM CDT Report Cesar Collins 02/15/2022 ECLR electronically [place] Steel 11:56 AM signed by CDT Specimen Received Abdomen 02/15/2022 ECLR previously 11:56 AM placed mesh CDT Clinical History Ventral hernia 02/15/2022 ECLR without 11:56 AM obstruction or CDT gangrene Gross Description Received labeled abdomen previously placed mesh c onsists of 02/15/2022 ECLR a 3.0 x 2.1 x 1 a 4 cm alamo-brown irregular shaped woven 11:56 AM mesh. ??There is attached blue sutures and adherent CDT alamo-yellow soft tissue. ??No tissue is submitted. ??The specimen is for gross examination only. [id number] Interpretation FINAL DIAGNOSIS 02/15/2022 ECLR Surgical mesh grossly identified. 11:56 AM CDT Specimen (Source) Anatomical Collection Method Collection Time Re ceived Time Location / / Volume Laterality Foreign Body 02/14/2022 1:48 PM (Abdomen) CDT Narrative This result has an attachment that is no t available. Cresencio Chen M.D. LAB SURG PATH ORDERABLES Performing Organization Address City/State/ZIP Code Phon e Number [facility]- [address] [place] [address] [phone] [facility] [place] [address] System in [address] Prothrombin Time (PT) (02/14/2022 10:22 AM CDT) P athologist Signature Prothrombin 11.7 9.4 - 12.5 02/14/2022 RDWG Time, P sec 10:44 AM CDT INR 1.0 0.9 - 1.1 02/14/2022 RDWG 10:44 AM CDT Comment: ----ADDITIONAL INFORMATION---- Standard intensity warfarin therapeutic range: 2.0 to 3.0 ?? High intensity warfarin therapeutic rang e: 2.5 to 3.5 Specimen Anatomical Collection Method Collection Time Receive d Time (Source) Location / / Volume Laterality Blood (Blood, 02/14/2022 10:22 02/14/2022 Venous) AM CDT 10:31 AM CDT Yumiko Pedroza M.D. LAB BLOOD ADD-ON Performing Organization Address City/State/ZIP Code Phon e Number [facility]- [address] [place], [place] [address] [place] [address] System in [place] [address] documented in this encounter Visit Diagnoses Diagnosis Hernia Abdominal Wall - Primary Ventral Hernia Without Obstruction Or Ga ngrene Hernia Ventral Recurrent documented in this encounter Admitting Diagnoses Diagnosis Hernia Abdominal Wall documented in this encounter Administered Medications Inactive Administered Medications - up to 3 most recent administrations Medication Order MAR Action Action Date Dose Rate Site acetaminophen tablet 1,000 mg Given 02/14/2022 10:30 AM CDT 1,00 0 mg (TYLENOL) 1,000 mg, oral, Once, On Sun02/14/22 at 1015, For 1 dose, Pre-Op, Antenna Engineer, PreOp with sips bupivacaine-EPINEPHrine (PF) 0.25 Given 02/14/2022 2:12 PM 50 mL Abdominal Tissue %-1:200,000 injection (MARCAINE CDT w/EPI) As needed, Starting on Sun02/14/22 at 1412, Intra-Op fentaNYL injection 25 mcg (SUBLIMAZE) Given 02/14/2022 3:00 PM CDT 25 mcg 25 mcg, intravenous, Every 2 min PRN, For pain 4 or greater (maximum 100 mcg). If max dose of Fentanyl is reached and if pain is greater than 4, discontinue Fentanyl: give Hydromorphone, Starting on Sun02/14/22 at 1442, PACU (only) Given 02/14/2022 2:58 PM CDT 25 mcg Given 02/14/2022 2:56 PM CDT 25 mcg hydrocortisone sodium succinate (PF) Given 02/14/2022 10:30 AM C DT 50 mg injection 50 mg (Solu-CORTEF) 50 mg, intravenous, Once, On Sun02/14/22 at 1015, For 1 dose, Pre-Op, IV push over 30 seconds per 100 mg (For doses 500 mg or less) lactated ringers New Bag 02/14/2022 2:16 PM CDT 20 mL/hr, intravenous, Continuous, Starting on Sun02/14/22 at 1015, Pre-Op Restarted 02/14/2022 11:24 AM CDT Rate/Dose Verify 02/14/2022 11:23 AM CDT 20 mL/hr metoprolol tablet 12.5 mg (LOPRESSOR) 12.5 mg, oral, Once as needed, if patien t did not take their last scheduled dose of beta leana prior to arrival, Starting on Sun02/14/22 at 1002, For 1 dose, Pre-Op, Do not give if patient does not take scheduled beta bl ockers, if patient is receiving intravenous vasopressors or inotropes, if he art rate is less than 50 beats per minute, if systolic blood pres sure is less than 90 mmHg or if diastolic blood pressure is less than 40 mmHg, or if patient has an allergy to metoprolol. oxyCODONE IR tablet 10 mg (ROXICODONE) Given 02/14/2022 3:03 PM CDT 10 mg 10 mg, oral, Every 6 hours PRN, severe pain or score 7-10 of 10, Starting on Sun02/14/22 at 1456 oxyCODONE IR tablet 5 mg (ROXICODONE) 5 mg, oral, Every 6 hours PRN, moderate pain or score 4-6 of 10, Starting on Sun02/14/22 at 1456 sodium chloride 0.9 % injection 10 mL 10 mL, intravenous, As needed, line care , Starting on Sun02/14/22 at 1002, Pre-Op, Peripheral Intravenous Catheter and Rapid Infusion Cat heter, prior to blood sampling, post blood transfusion or post blood samplin g sodium chloride 0.9 % injection 3 mL 3 mL, intravenous, As needed, line care, Starting on Sun02/14/22 at 1002, Pre-Op, Prior to and following infusion and betw een multiple consecutive infusions: sodium chloride 0.9 % injection sodium chloride 0.9 % injection 3 mL 3 mL, intravenous, Every 12 hours scheduled, First dos e on Sun02/14/22 at 2100, Pre-Op, Peripheral Intravenous Catheter and Rapid Infu mario alberto Catheter, when no infusion to maintain patency documented in this encounter Active and Recently Administered Medications Times are shown in CDT. Scheduled Medication Order 02/12/2022 02/13/2022 02/14/2022 acetaminophen tablet 1,000 mg (TYLENOL) (COMPLETED) 1030 (Given - Provider: Radha Angelo RRalf) 1,000 mg, oral, Once, On Sun02/14/22 at 1015, For 1 dose, Pre-Op, Antenna Engineer, PreOp with sips ceFAZolin injection 2,000 mg (ANCEF) (COMPLETED) 1203 (Given - Provider: Ramona Simmons APRN, [facility]) 2,000 mg (rounded from 2,497.5 mg = 25 m g/kg ? 99.9 kg), intravenous, Once, On Sun02/14/22 at 1015, For 1 dose, Intra-Op, Preoperatively within 1 hour prior to surgical incision If needed, reconstitute vial per package insert instructions. S IVAG for administration guidelines. , Drug Monitoring Program: Pharmacist to adjust medication dosing based on indication and drug clearance factors., Indications: Prophylaxis, surgical hydrocortisone sodium succinate (PF) injection 50 mg (Solu-C ORTEF) (COMPLETED) 1030 (Given - Provider: Radha Angelo RDavi Chaney) 50 mg, intravenous, Once, On Sun02/14/22 at 1015, For 1 dose, Pre-Op, IV push over 30 seconds per 100 mg (For doses 500 mg or less) ketorolac injection 15 mg (TORADOL) 1500 (Due) 15 mg, intravenous, Once, On Sun02/14/22 at 1500, For 1 dose, Do not give if patient received in PACU or operating room. Adult IV push rate: Over 15 seconds. Peds IV push rate: Over 1 minute. 60 mg dose only for IM, not recommended for IV. lidocaine 10 mg/mL (1 %) injection 1 mL (XYLOCAINE) 1015 (Due) 1 mL, infiltration, Once, On Sun02/14/22 at 1015, For 1 dose, Pre-Op, May admin up to 1 mL at the site of IV site if not allergic to lidocaine sodium chloride 0.9 % injection 3 mL 3 mL, intravenous, Every 12 hours schedu led, First dose on Sun02/14/22 at 2100, Pre-Op, Peripheral Intravenous Catheter and Rapid Infusion Catheter, when no infusion to maintain patency sodium chloride 0.9 % injection 3 mL 3 mL, intravenous, Every 12 hours schedu led, First dose on Sun02/14/22 at 2100, Pre-Op, Peripheral Intravenous Catheter and Rapid Infusion Catheter, when no infusion to maintain patency Continuous Medication Order 02/12/2022 02/13/2022 02/14/2022 lactated ringers 1026 (New Bag - Provider: Radha Angelo R.N.)1123 (Rate/Dose Verify - Provider: Ramona Simmons APRN, [facility])1123 (Paused - Provider: Ramona Simmons APRN, [place] - Comment: Switch to gravity) 20 mL/hr, intravenous, Continuous, Starting on Sun02/14/22 at 10 15, Pre-Op 1124 (Restarted - Provider: Ramona Simmons APRN, [place] - Comment: Given by staff in pre-op)1259 (Canceled Entry - Provider: Ramona Simmons APRN, [place])1416 (New Bag - Provider: Uzair Fuentes APRN, [place], D.N.P.) 1436 (Stopped - Provider: Uzair Fuentes APRN, [place], D.N.P.) PRN Medication Order 02/12/2022 02/13/2022 02/14/2022 acetaminophen tablet 1,000 mg (TYLENOL) 1,000 mg, oral, Every 6 hours PRN, mild pain or score 1-3 of 10, Starting on Sun02/14/22 at 1456 bupivacaine-EPINEPHrine (PF) 0.25 %-1:20 0,000 injection (MARCAINE w/EPI) (CANCELED) 1412 (Given - Provid er: Cresencio Chen M.D.) As needed, Starting on Sun02/14/22 at 1412, Intra-Op dexAMETHasone injection 4 mg (DECADRON) 4 mg, intravenous, Once as needed, nause a, vomiting, Starting on Sun02/14/22 at 1456, For 1 dose, Give only if NOT given during the pre or intraoperative period. If ondansetron ordered, give dexamethasone with first dose of ondansetron. fentaNYL injection 25 mcg (SUBLIMAZE) 1454 (Given - Provider: Hanh Chew R.N.)1456 (Given - Provider: Hanh Chew R.N.)1458 (Given - Provider: Maddie Kasper.N.)1500 (Given - Provider: Hanh Chew RDaviNDavi) 25 mcg, intravenous, Every 2 min PRN, Fo r pain 4 or greater (maximum 100 mcg). If max dose of Fentanyl is reached and if pain is greater than 4, discontinue Fentanyl: give Hydromorphone, Starting on Sun02/14/22 at 1442, PACU (only) fentaNYL injection 25 mcg (SUBLIMAZE) 25 mcg, intravenous, Every 30 min PRN, m oderate pain or score 4-6 of 10, severe pain or score 7-10 of 10, Starting on Sun02/14/22 at 1456, For pain uncontrolled by oral medication or if nausea/vomiting present at least 30 minutes after administration of oral medicat ion. haloperidol lactate injection 1 mg (HALDOL) 1 mg, intravenous, Every 6 hours PRN, na usea, vomiting, Starting on Sun02/14/22 at 1456, For 48 hours, Total of 3 doses in 24 hour period. RASS must be -2 or higher to administer. Reassess for nausea or vomiting after at least 10 minutes. If nausea or vomiting persists administer next ordered antiemetic medications (order for antiemetic medication administration ondansetron then haloperidol then promethazine) HYDROmorphone injection 0.5 mg (DILAUDID) 0.5 mg, intravenous, Every 5 min PRN, mo derate pain or score 4-6 of 10, severe pain or score 7-10 of 10, Starting on Sun02/14/22 at 1442, For 4 doses, PACU (only), Up to maximum total dose of 2 mg metoprolol tablet 12.5 mg (LOPRESSOR) 12.5 mg, oral, Once as needed, if patien t did not take their last scheduled dose of beta leana prior to arrival, Starting on Sun02/14/22 at 1002, For 1 dose, Pre-Op, Do not give if patient does not ta ke scheduled beta blockers, if patient i s receiving intravenous vasopressors or inotropes, if heart rate is less than 50 beats per minute, if systolic blood pressure is less than 90 mmHg or if diastolic blood pressure is less than 40 mmHg, or if patient has an allergy to metoprolol. naloxone injection 0.2 mg 0.2 mg, intravenous, As needed, respirat ory depression, Starting on Sun02/14/22 at 1456, For respiratory rate less than 8 breaths per minute or RASS score of - 3, -4, -5. Apply oxygen to keep oxygen saturations greater than 90% and notify service. ondansetron (PF) injection 4 mg (ZOFRAN) 4 mg, intravenous, Every 6 hours PRN, na usea, vomiting, Starting on Sun02/14/22 at 1456, For 48 hours, Reassess for nausea or vomiting after at least 10 minutes. If nausea or vomiting persists administe r next ordered antiemetic medications (o rder for antiemetic medication administration ondansetron then droperidol then promethazine). oxyCODONE IR tablet 10 mg (ROXICODONE)(Linked Group 1) 1503 (Given - Provider: Hanh Chew RRalf) 10 mg, oral, Every 6 hours PRN, severe p ain or score 7-10 of 10, Starting on Sun02/14/22 at 1456 oxyCODONE IR tablet 5 mg (ROXICODONE)(Linked Group 1) 1503 (See Alternative - Provider: Hanh Chew R.Ritu) 5 mg, oral, Every 6 hours PRN, moderate pain or score 4-6 of 10, Starting on Sun02/14/22 at 1456 promethazine injection 6.25 mg (PHENERGAN) 6.25 mg, intravenous, Every 6 hours PRN, nausea, vomiting, Starting on Sun02/14/22 at 1456, For 48 hours, RASS must be -2 or higher to administer. Reassess for nausea/vomiting after at least 10 minutes. If nausea or vomiting persists administ er next ordered antiemetic medications (order for antiemetic medication administration ondansetron then droperidol then promethazine). sodium chloride 0.9 % injection 10 mL 10 mL, intravenous, As needed, line care , Starting on Sun02/14/22 at 1002, Pre- Op, Peripheral Intravenous Catheter and Rapid Infusion Catheter, prior to blood sampling, post blood transfusion or post blood sampling sodium chloride 0.9 % injection 10 mL 10 mL, intravenous, As needed, line care , Starting on Sun02/14/22 at 1002, Pre- Op, Peripheral Intravenous Catheter and Rapid Infusion Catheter, prior to blood sampling, post blood transfusion or post blood sampling sodium chloride 0.9 % injection 3 mL 3 mL, intravenous, As needed, line care, Starting on Sun02/14/22 at 1002, Pre- Op, Prior to and following infusion and between multiple consecutive infusions: sodium chloride 0.9 % injection sodium chloride 0.9 % injection 3 mL 3 mL, intravenous, As needed, line care, Starting on Sun02/14/22 at 1002, Pre- Op, Prior to and following infusion and between multiple consecutive infusions: sodium chloride 0.9 % injection Linked Groups Order Group 1: oxyCODONE IR tablet 5 mg (ROXICODONE)Jump to med 5 mg, oral, Every 6 hours PRN, moderate pain or score 4-6 of 10, Starting on Sun02/14/22 at 1456 Or oxyCODONE IR tablet 10 mg (ROXICODONE)Jump to med 10 mg, oral, Every 6 hours PRN, severe p ain or score 7-10 of 10, Starting on Sun02/14/22 at 1456 documented in this encounter Additional Health Concerns Assessment Noted Time PHQ-9 Depression Total Score: 3 04/07/2021 9:37 AM CDT documented as of this encounter Care Teams Director Of Analytics Relationship Specialty Start Date End Date Elsewhere, Pcp PCP - General 09/17/19 documented as of this encounter
--- OUTSIDE RECORDS SUMMARY | 2022-05-25 13:03 | XMS_ITS | Encounter Summary ---
:1960 Author Organization [facility] Address [address] [place] [address] Care Team Providers Name Role Phone Elsewhere, Pcp Primary Care Provider Unavailable Reason for Referral Outpatient (Routine) - Closed Specialty Diagnoses / Procedures Referred By Contact Refer red To Contact General Surgery Cresencio Chen M.D. [facility] [address] [place] [phone] Referral ID Status Reason Start Date Expiration Date Visits Requ ested Visits Authorized [id number] Closed 02/14/2022 02/14/2023 1 1 Encounter Details Date Type Department Care Team Description 02/14/2022 Hospital Encounter [facility] H[facility] OR Cresencio Chen Ventral Hernia Cortez Moses M.D. Without Obstruction [place] [id number] [address] [place] [phone] (Wo rk) Social History Tobacco Use [...] How often do you attend sabianism or temple 1 to 4 times per [...] Sign Reading Time Taken Comments Blood Pressure 176/99 02/14/2022 4:00 PM CDT Pulse 70 02/14/2022 4:00 PM CDT Temperature 35.7 ??C (96.3 ??F) 02/14/2022 10:16 AM CDT Respiratory Rate 16 02/14/2022 10:16 AM CDT Oxygen Saturation 95% 02/14/2022 4:00 PM CDT Inhaled Oxygen Concentration - - [...] was unfurled in the abdomen. A Glenn Thomasen needle was punctured through the abdominal wall [...] Nicholas APRN C.N.P., D.N.P., M.S.N. [address] [place] [address] [phone] (Wo rk) 07/31/2022 Lab Laboratory Medicine Tony Rubalcava M. B., Sydnie, MDebra [address] [place] [address] [phone] (Wo rk) 07/31/2022 Lab Laboratory Medicine Tony Rubalcava M. B., Sydnie, MDebra [address] [place] [address] [phone] (Wo rk) 07/31/2022 Office Visit Transplant Tony Rubalcava M.B., ChBurke, MDebra [address] [place] [address] [phone] (Wo rk) 07/31/2022 Appointment Radiology Tony Rubalcava M.B., Sydnie, MDebra [address] [place] [address] [phone] (Wo rk) 08/01/2022 Office Visit Transplant Tony Rubalcava M.B., Mukund Otoole [address] [place] [address] [phone] (Wo behzad) 08/01/2022 Clinical Support Transplant RufinoeliTony M.B., Mukund Otoole [address] [place] [address] [phone] (Nicolas wen) Scheduled Referrals Name Type Priority Associated Diagnoses Order S [facility] General Surgery Outpatient Referral Routine Expec rebecca: [...] Component Value Ref Test Analysis Performed At [employer] [facility] [employer] Range Method Time Signature 02/15/2022 ECLR 11:56 [...] LAB SURG PATH ORDERABLES Performing Organization Address City/[facility]/ZIP Code Phon e Number [facility]- [address] [place] [phone] [facility] [place] [address] [address] Prothrombin Time (PT) (02/14/2022 10:22 AM [...] M.D. LAB BLOOD ADD-ON Performing Organization Address City/[facility]/ZIP Code Phon e Number [facility]- [address] [place], [place] [address] [facility] [place] [address] System in [place] [address] documented in this encounter Visit Diagnoses Diagnosis Hernia Abdominal Wall - Primary Ventral Hernia Without Obstruction Or Ga ngrene documented in this encounter Admitting Diagnoses Diagnosis Hernia Abdominal Wall documented in this encounter Administered Medications Inactive Administered Medications - up to 3 most recent administrations Medication Order MAR Action Action Date Dose Rate Site acetaminophen tablet 1,000 mg Given 02/14/2022 10:30 AM CDT 1,00 0 mg (TYLENOL) 1,000 mg, oral, Once, On Sun02/14/22 at 1015, For 1 dose, Pre-Op, Pig Machine Operator, PreOp with sips fentaNYL injection 25 mcg (SUBLIMAZE) Given 02/14/2022 [...] (COMPLETED) 1030 (Given - Provider: Radha Angelo RDaviNDavi) 1,000 mg, oral, Once, On Sun02/14/22 at 1015, For 1 dose, Pre-Op, Pig Machine Operator, PreOp with sips ceFAZolin injection 2,000 mg (ANCEF) (COMPLETED) 1203 (Given - Provider: Ramona Simmons APRN, [facility]) 2,000 mg (rounded from 2,497.5 mg = 25 m g/kg ? 99.9 kg), intravenous, Once, On Sun02/14/22 at 1015, For 1 dose, Intra-Op, Preoperatively within 1 hour prior to surgical incision If needed, reconstitute vial per package insert instructions. S ee IVAG for administration guidelines. , Drug Monitoring Program: Pharmacist to adjust medication dosing based on indication and drug clearance factors., Indications: Prophylaxis, surgical hydrocortisone sodium succinate (PF) injection 50 mg (Solu-C ORTEF) (COMPLETED) 1030 (Given - Provider: Ann Harrington) 50 mg, intravenous, Once, On Sun02/14/22 at [...] Provider: Hanh Chew R.N.)1458 (Given - Provider: Hanh Chew R.N.)1500 (Given - Provider: Hanh Chew, R.N.) 25 mcg, intravenous, Every 2 min PRN, [...] 1503 (See Alternative - Provider: Hanh Chew R.N.) 5 mg, oral, Every 6 hours PRN, [...] documented as of this encounter Care Teams Log Snaker Relationship Specialty Start Date End Date Elsewhere, Pcp PCP - General 09/17/19 documented as of this encounter
--- OUTSIDE RECORDS SUMMARY | 2022-05-25 13:03 | XMS_ITS | Encounter Summary ---
:1960 Author Organization [facility] Address [address] [place] [address] Care Team Providers Name Role Phone Elsewhere, Pcp Primary Care Provider Unavailable Encounter Details Date Type Department Care Team Description 02/14/2022 Ancillary Procedure Department of General Surgery Social History Tobacco Use Types Packs/Day Years [...] How often do you attend jain or shinto 1 to 4 times per [...] An Nicholas APRN C.N.P., D.N.P., M.S.N. [address] [place] [address] [phone] (Wo rk) 07/31/2022 Lab Laboratory Medicine Tony Rubalcava M. B., Sydnie, MDerba [address] [place] [address] [phone] (Wo rk) 07/31/2022 Lab Laboratory Medicine Tony Rubalcava M. B., Sydnie, MDebra [address] [place] [address] [phone] (Wo rk) 07/31/2022 Office Visit Transplant Tony Rubalcava M.B., ChBurke, MDebra [address] [place] [address] [phone] (Wo rk) 07/31/2022 Appointment Radiology Tony Rubalcava M.B., ChBurke, MDebra [address] [place] [address] [phone] (Wo rk) 08/01/2022 Office Visit Transplant Tony Rubalcava M.B., Sydnie, MDebra [address] [place] [address] [phone] (Wo rk) 08/01/2022 Clinical Support Transplant Tony Rubalcava M.B., Shashi Otoole. [address] [place], [place] [phone] (Wo rk) documented as of this encounter Procedures Procedure Name Priority Date/Time Associated Diagnosis Comme nts SURGERY IMAGE EXAM Routine 02/14/2022 10:25 AM Re sults for this CDT procedure are i n the results section. documented in this encounter Results LAP HERNIA REPAIR-Surgery Image Exam (02/14/2022 10:25 AM CDT) Specimen (Source) Anatomical Location Collection Method / Collectio n Time Received Time / Laterality Volume Narrative IIMS - 02/14/2022 2:31 PM CDT This order has been created and auto-finalized to support the import of images acquired without order. The clini fredi documentation to support these images can be found on the encounter brett t produced images. Provider Not In System IMG NON RAD IMAGING PROCEDUR ES Performing Organization Address City/State/ZIP Code Phon e Number IIMS IIMS NA documented in this encounter Visit Diagnoses Not on filedocumented in this encounter Additional Health Concerns Assessment Noted Time PHQ-9 Depression Total Score: 3 04/07/2021 9:37 AM CDT documented as of this encounter Care Teams Director Of Federal Sales Relationship Specialty Start Date End Date Elsewhere, Pcp PCP - General 09/17/19 documented as of this encounter
--- OUTSIDE RECORDS SUMMARY | 2022-05-25 13:03 | XMS_ITS | Encounter Summary ---
:1960 Author Organization [facility] Address [address] [place] [address] Care Team Providers Name Role Phone Elsewhere, Pcp Primary Care Provider Unavailable Reason for Referral Outpatient (Routine) - Closed Specialty Diagnoses / Procedures Referred By Contact Refer red To Contact Anesthesiology Diagnoses Ventral Hernia Without Obstruction Or Gangrene Cresencio Chen [facility] [address] [place] [address] Referral ID Status Reason Start Date Expiration Date Visits Requ ested Visits Authorized [id number] Closed 01/31/2022 01/31/2023 1 1 Reason for Visit Reason Comments Consult Umbilical hernia consult Outpatient (Routine) - Closed Specialty Diagnoses / Procedures Referred By Contact Refer red To Contact General Surgery Diagnoses Failure Renal End Stage (HCC) Hernia Abdominal Wall Steve Martínez Jr.[facility] D.O. [address] [place] [address] Referral ID Status Reason Start Date Expiration Date Visits Requ ested Visits Authorized [id number] Closed 01/30/2022 01/30/2023 1 1 Encounter Details Date Type Department Care Team Description 01/31/2022 Comprehensive Visit Department of Cresencio Chen Hernia General Surgery gladys Moses M.D. Without Stephen Harmon, [place] Escobar Obstruction Or [place] EV[place] Garciagrene (Primary [address] [address] Dx) EV[place] GARCIA [phone] [id number] (Work) [phone] Social History Tobacco Use Types Packs/Day Years [...] How often do you attend presybeterian or confucianist 1 to 4 times per year 12/23/2021 [...] Sign Reading Time Taken Comments Blood Pressure 168/95 01/31/2022 2:31 PM CDT Pulse 76 01/31/2022 2:31 PM CDT Temperature 36.3 ??C (97.3 ??F) 01/31/2022 2:31 PM CDT Respiratory Rate - - Oxygen Saturation - - Inhaled Oxygen Concentration - - Weight - - Height - - Body Mass Index - - documented in this encounter Consult Notes Cresencio Chen M.D. - 01/31/2022 3:00 PM CDT GENERAL SURGERY CONSULTATION REASON FOR CONSULT Evaluation of Consult (Umbilical hernia consult). She was referred by Steve Martínez Jr., D.O. SUBJECTIVE HISTORY OF PRESENT ILLNESS Ms. Wray is a 61 y.o. female with a past medical history significant for end-stage renal disease, on Sunday hemodialysis, chronic immunosuppression with prednisone, CellCept, and Prograf, previous kidney transplantation, hypertension, chronic anticoagulation with warfarin, recurrent urinary tract infections, history of smoking. Patient presents to clinic today for evaluation of a supraumbilical abdominal wall hernia. This is been present for many years. By enlarge it has been asymptomatic up until 3 months ago, when it started causing more pain symptoms, especially with strenuous activity. Her hernia is out to the majority of the time,. She does not attempt to reduce it. Patient has had no episodes of incarceration. She has not noticed her activities limited by her hernia. Patient underwent previous umbilical hernia repair 20 years ago. She does believe mesh was used at the time. She has also had a kidney transplant in the past, with her transplant kidney located in the right pelvis. She has had ongoing difficulties with ureteral stenosis, requiring chronic indwelling stent for which she undergoes occasional stent exchange. She has no history of diabetes mellitus. She quit smoking last year. Patient is chronically immunosuppressed on prednisone, CellCept, and Prograf.She takes warfarin chronically as well. Patient Active Problem List Diagnosis ??? Chronic Kidney Disease NOS ??? Hyperlipidemia ??? Depression Major One Episode Full Remission (HCC) ??? Complication Kidney Transplant (HCC) ??? Chronic Kidney Disease Stage 4 Glomerular Filtration Rate 15-29 (HCC) ??? Chronic Kidney Disease Stage 5 Glomerular Filtration Rate Less Than 15 (HCC) ??? Transplant Renal (HCC) ??? Hypertension And Chronic Kidney Disease Stage 1 To 4 ??? Obstruction Ureter ??? Complication Dialysis Fistula Subsequent ??? Pretransplant Recipient Evaluation Exam ??? Chronic Failure Renal End Stage Renal Disease Dialysis Dependent (HCC) ??? Complication Dialysis Device Subsequent ??? Anticoagulant Therapy ??? Failure Renal End Stage (HCC) ??? Thombosis Arteriovenous Fistula Initial (HCC) ??? Ureteral Stent Exchange ??? Obstruction Ureteropelvic ??? Infection Urinary Tract Recurrent ??? Pain Neuropathic ??? COVID-19 Infection ??? Smoking Tobacco Use Personal History ??? Hernia Abdominal Wall Past Surgical History: Procedure Laterality Date ??? CREATION ARTERIOVENOUS FISTULA UPPER EXTREMITY - OTHER Right 05/06/2019 Procedure: Right arm brachio-basilic AV graft using 6mm propaten graft; Surgeon: Guillermo Yu M.B.B.S.; Location: [facility] ??? CREATION OF BRACHIOBASILIC ARTERIOVENOUS FISTULA WITH TRANSPOSITION Left 01/09/2017 Creation of brachiobasilic arteriovenous fistula with transposition ??? CYSTOSCOPY N/A 06/12/2017 Cystoscopy ??? CYSTOURETHROSCOPY N/A 05/14/2018 Procedure: CYSTOURETHROSCOPY; Surgeon: Geraldo Spear M.D.; Location: [facility] ??? EMBOLECTOMY ARTERIOVENOUS FISTULA Right 05/31/2019 Procedure: Right brachio-axillary arterio-venous graft thromboembolectomy, Balloon angioplasty of venous anastomosis; Surgeon: Guillermo Yu M.B.B.SDavi; Location: [facility] ??? EXCHANGE URETERAL STENT Right 05/14/2018 Procedure: EXCHANGE URETERAL STENT.; Surgeon: Geraldo Spear M.D.; Location: [facility] ??? EXCHANGE URETERAL STENT Right 09/05/2018 Procedure: EXCHANGE URETERAL STENT.; Surgeon: Geraldo Spear M.D.; Location: [facility] ??? EXCHANGE URETERAL STENT Right 12/26/2018 Procedure: EXCHANGE URETERAL STENT.; Surgeon: Geraldo Spear M.D.; Location: [facility] ??? EXCHANGE URETERAL STENT Right 09/16/2019 Procedure: EXCHANGE URETERAL STENT.; Surgeon: Jakub Ray M.D., Ph.D.; Location: [facility] ??? EXCHANGE URETERAL STENT Right 01/22/2020 Procedure: EXCHANGE URETERAL STENT, allograft kidney.; Surgeon: Beck Galarza M.D.; Location:[facility] ??? EXCHANGE URETERAL STENT Right 12/16/2020 Procedure: EXCHANGE URETERAL STENT, Imajin stent, allograft kidney.; Surgeon: Geraldo Spear M.D.; Location: [facility] ??? EXCHANGE URETERAL STENT Right 01/05/2022 Procedure: EXCHANGE URETERAL STENT; Surgeon: Geraldo Spear M.D.; Location: [facility] ??? FISTULOGRAM UPPER EXTREMITY WITH OR WITHOUT INTERVENTION Right 05/31/2019 Procedure: FISTULOGRAM WITH OR WITHOUT INTERVENTION UPPER EXTREMITY; Surgeon: Guillermo Yu M.B.B.S.; Location: [facility] ??? HERNIA REPAIR ??? HYSTERECTOMY 2006 no documentation ??? INSERTION NEUROSTIMULATOR ELECTRODE PERIPHERAL Right 10/14/2020 Procedure: Sprint INSERTION NEUROSTIMULATOR ELECTRODE PERIPHERAL.; Surgeon: Юлия Painter M.D.; Location: [facility] ??? ORGAN TRANSPLANT Sept 12 ? PERCUTANEOUS ANTERGRADE ENDOPYELOTOMY Right 12/17/2014 Percutaneous antergrade endopyelotomy Notes: ureteral stricture balloon dilation ??? RETROGRADE PYELOGRAM Right 05/14/2018 Procedure: RETROGRADE PYELOGRAM.; Surgeon: Geraldo Spear M.D.; Location: [facility] ??? RETROGRADE PYELOGRAM Right 09/05/2018 Procedure: RETROGRADE PYELOGRAM; Surgeon: Geraldo Spear M.D.; Location: [facility] ??? RETROGRADE PYELOGRAM Right 12/26/2018 Procedure: RETROGRADE PYELOGRAM; Surgeon: Geraldo Spear M.D.; Location: [facility] ??? RETROGRADE PYELOGRAM Right 09/16/2019 Procedure: Retrograde Pyelogram; Surgeon: Jakub Ray M.D., Ph.D.; Location: [facility] ??? URETERAL STENT EXCHANGE Right 12/14/2016 Ureteral stent exchange Notes: pelvic transplant kidney ??? URETERAL STENT EXCHANGE Right 06/12/2017 Ureteral stent exchange Notes: proceed as indicated, May require multiple trips to operating room within 90 days ??? URETERAL STENT EXCHANGE Right 09/05/2017 Ureteral stent exchange Notes: transplant kidney, 8 x 20 JJ stent ??? URETERAL STENT PLACEMENT 12/17/2014 balloon dilation and stent placement Allergies Allergen Reactions ??? Epoetin Rolando GI intolerance ERYTHROPOIETIN- vomiting ??? Latex Other (see comments) Eczema ??? Pain Medicine Other (see comments) Patient unsure of what medication it was. Had a pain med given intravenously and got very nauseous Current Outpatient Medications: ??? acetaminophen (TYLENOL) 500 mg tablet, Take 2 tablets (1,000 mg total) by mouth every 6 (six) hours as needed for pain., Disp: , Rfl: ??? amLODIPine (NORVASC) 5 mg tablet, TAKE 1 TABLET(5 MG) BY MOUTH EVERY EVENING, Disp: 90 tablet, Rfl: 3 ??? Bystolic 10 mg tablet, TAKE 1 TABLET(10 MG) BY MOUTH DAILY, Disp: 90 tablet, Rfl: 3 ??? calcium carbonate (TUMS) 500 mg (200 mg calcium) chewable tablet, Chew 2 tablets 2 (two) times aday with meals. Lunch and dinner. , Disp: , Rfl: ??? cefdinir (OMNICEF) 300 mg capsule, Take 1 capsule (300 mg total) by mouth 2 (two) times a day before breakfast and dinner. Skip day of surgery., Disp: 12 capsule, Rfl: 0 ??? gabapentin (NEURONTIN) 100 mg capsule, TAKE 3 CAPSULES BY MOUTH IN THE MORNING AND 2 CAPSULES INTHE EVENING, Disp: 450 capsule, Rfl: 3 ??? hydrocortisone (for_HYTONE) 2.5 % cream, Apply 1 application topically daily as needed (Eczema)., Disp: , Rfl: ??? lidocaine-prilocaine (EMLA) 2.5-2.5 % cream, APPLY TOPICALLY TO DIALYSIS ACCESS SITE 30 MINUTES PRIOR TO TREATMENT--GENERIC FOR EMLA, Disp: 60 g, Rfl: 11 ??? mycophenolate (CELLCEPT) 250 mg capsule, TAKE 1 CAPSULE(250 MG) BY MOUTH TWICE DAILY. DO NOT BREAK, CUT, OR OPEN CAPSULES, Disp: 180 capsule, Rfl: 3 ??? predniSONE (DELTASONE) 5 mg tablet, TAKE 1 TABLET(5 MG) BY MOUTH DAILY, Disp: 90 tablet, Rfl: 3 ??? rosuvastatin (CRESTOR) 5 mg tablet, TAKE 1 TABLET BY MOUTH DAILY, Disp: 90 tablet, Rfl: 3 ??? sertraline (ZOLOFT) 25 mg tablet, Take 1 tablet (25 mg total) by mouth daily., Disp: 90 tablet, Rfl: 3 ??? sevelamer (RENVELA) 800 mg tablet, Take 1 tablet (800 mg total) by mouth daily with breakfast. Take with largest meal of the day, Disp: 90 tablet, Rfl: 3 ??? tacrolimus (PROGRAF) 1 mg capsule, Take 3 capsules (3 mg total) by mouth every morning AND 2 capsules (2 mg total) every evening., Disp: 450 capsule, Rfl: 3 ??? warfarin (COUMADIN) 2 mg tablet, Take 2-2.5 tablets (4-5 mg total) by mouth daily. 4.5 mg Sun-Sun-Sun, 4 mg other days, Disp: 150 tablet, Rfl: 5 Family History Adopted: Yes Problem Relation Age of Onset ??? No Known Problems Mother ??? No Known Problems Father Social History Socioeconomic History ??? Marital status: Spouse name: Not on file ??? Number of children: Not on file ??? Years of education: Not on file ??? Highest education level: GED or equivalent Occupational History ??? Not on file Tobacco Use ??? Smoking status: Former Smoker Packs/day: 0.50 Years: 30.00 Pack years: 15.00 Types: Cigarettes, Cigarettes Start date: 01/29/1975 ??? Smokeless tobacco: Never Used Vaping Use ??? Vaping Use: never used Substance and Sexual Activity ??? Alcohol use: No ??? Drug use: No ??? Sexual activity: Not Currently Partners: Male control/protection: None Other Topics Concern ??? Not on file Social History Narrative ??? Not on file Social Determinants of Health Financial Resource Strain: Low Risk ??? Difficulty of Paying Living Expenses: Not very hard Food Insecurity: No Food Insecurity ??? Worried About Running Out of Food in the Last Year: Never true ??? Ran Out of Food in the Last Year: Never true Transportation Needs: No Transportation Needs ??? Lack of Transportation (Medical): No ??? Lack of Transportation (Non-Medical): No Physical Activity: Inactive ??? Days of Exercise per Week: 0 days ??? Minutes of Exercise per Session: 0 min Stress: Stress Concern Present ??? Feeling of Stress : To some extent Social Connections: Unknown ??? Frequency of Communication with Friends and Family: Twice a week ??? Frequency of Social Gatherings with Friends and Family: Patient refused ??? Attends Restorationism Services: 1 to 4 times per year ??? Active Member of Clubs or Organizations: No ??? Attends Club or Organization Meetings: Never ??? Marital Status: Intimate Partner Violence: Not At Risk ??? Fear of Current or Ex-Partner: No ??? Emotionally Abused: No ??? Physically Abused: No ??? Sexually Abused: No Housing Stability: Low Risk ??? Unable to Pay for Housing in the Last Year: No ??? Number of Places Lived in the Last Year: 1 ??? Unstable Housing in the Last Year: No REVIEW OF SYSTEMS A full 14 point review of systems was reviewed with the patient. Systems reviewed include: General, HENT, Eyes, Cardiovascular, Respiratory, Gastrointestinal, Genitourinary, Skin, Musculoskeletal, Endocrine, Hematologic, Neurologic, Psychiatric and Allergic. All pertinent items are listed in the History of Present Illness, Past Medical History and Past Surgical History. Patient also notes: Constitutional: Positive for fatigue, loss of appetite, night sweats and weight gain of more than 10pounds. Skin: Positive for change in mole or skin spot. Eyes: Positive for visual problems. Respiratory: Positive for dyspnea and sleep disturbances due to breathing. Gastrointestinal: Positive for abdominal (belly) pain or cramping. Genitourinary: Positive for difficulty urinating. Hematologic: Positive for bruises or bleeds easily. Musculoskeletal: Positive for arthralgias and pain or stiffness in the joints. Neurological: Positive for numbness or shooting pain in hands, arms, legs, or feet. Psychiatric/Behavioral: Positive for snores loudly, stop breathing, choking, or gasping while asleepand feeling nervous, anxious, or on edge in past two weeks. The following systems were negative: ENT, CV All other systems are negative. OBJECTIVE PHYSICAL EXAM Vitals: 01/31/22 1431 BP: (!) 168/95 Pulse: 76 Temp: 36.3 ??C TempSrc: Temporal Estimated body mass index is 36.52 kg/m?? as calculated from the following: Height as of 01/03/22: 165.4 cm. Weight as of 01/03/22: 99.9 kg. GENERAL: Well-developed, well-nourished. In no acute distress. Sitting comfortably in examination room. HEENT: Head is atraumatic, normocephalic. Symmetrical features. External ears and nose normal. Moistmucous membranes. No pharyngeal erythema. EYES: Pupils equal, round, reactive to light. Extraocular motion intact. No scleral icterus. CARDIOVASCULAR: Heart is regular rate and rhythm. Normal S1/S2. No murmurs. LUNGS: Normal respiratory effort. No wheezes, crackle, or rales. No cough. CHEST: No deformities. No tenderness. ABDOMEN: Abdomen is soft. Non-distended. No masses or organomegaly detected. Non-tender. Wide mouth ventral hernia just superior to the patient's umbilicus. Hernia is soft and nontender. It is likely containing omentum. It is partially reducible. Infraumbilical scar from previous hernia repair. MUSCULOSKELETAL: Moves all extremities. No deformities or lesions. No peripheral edema. SKIN: Warm and dry. No rashes or jaundice. NEUROLOGIC: Alert and oriented x3. Cranial nerves 2 through 12 grossly intact. Normal strength and sensation in all four extremities. PSYCHIATRIC: Normal affect. Pleasant and cooperative. Diagnostics LABORATORY: Reviewed in the electronic medical record under laboratory tab. IMAGING: CT abdomen pelvis 04/14/2021 is reviewed. Findings include: Fat containing ventral hernia, stable in size. Fascial defect 4 cm in transverse orientation, 2.5 cmin longitudinal orientation. No evidence of incarceration. ASSESSMENT / PLAN Diagnosis Plan 1. Ventral Hernia Without Obstruction Or Gangrene General Surgery - Hernia consult (clinic) Pre Operative Evaluation SIDNEY nurse consult (clinic) Case request operating room: LAPAROSCOPIC HERNIA REPAIR WITH MESH - VENTRAL, POSSIBLE OPEN Primary Care - SIDNEY consult (clinic) SARS Coronavirus-2 RNA, V Asymptomatic Case request operating room: LAPAROSCOPIC HERNIA REPAIR WITH MESH - VENTRAL, POSSIBLE OPEN I discussed the pathophysiology of hernias with the patient. Treatment options include watchful waiting versus surgical repair. The patient desires repair of this hernia. I recommend the patient undergo a laparoscopic ventral hernia repair with mesh, possible open, in the operating room. The proceduredetails, expected recovery, postoperative activity restrictions, and potential complications were discussed. I would anticipate making an incision at the hernia site for primary fascial closure as well. Complications discussed include bleeding, infection, bowel injury, bladder injury, mesh reaction, mesh infection, nerve injury, chronic pain, seroma formation, hematoma formation, wound healing complications, hernia recurrence, anesthesia reaction, perioperative myocardial infarction, blood clots, respiratory failure, and stroke. The patient is at higher risk for complications due to medical comorbid ities, including end-stage renal disease, chronic immunosuppression, obesity, previous mesh implantation, and chronic anticoagulation. She is also at potential risk of mesh infection due to chronic indwelling ureteral stent, and may benefit from postoperative antibiotic course. Would not recommend hernia repair without mesh, as recurrence would be extremely likely. I have encouraged weight loss to get her BMI below 35, as this will reduce risk of complications and recurrence as well. The patient is agreeable to proceed with the procedure, and will be scheduled on elective outpatientbasis. I will discuss the patient with Anesthesiology to ensure she is a candidate for surgery here in [place]. Procedure can be planned for off dialysis day, and the patient can return to dialysis postop day 1. The patient will undergo preoperative evaluation and clearance for anesthesia. The patient will undergo preoperative COVID testing. I also described the signs and symptoms of incarceration and strangulation, and recommended the patient seek immediate medical attention if any these were to occur. The patient will call me with any questions or concerns, otherwise I will see them on the planned operative date. Cresencio Chen M.D. documented in this encounter Plan of Treatment Upcoming Encounters Date Type Specialty Care Team Description 06/01/2022 Telemedicine Pharmacy An Nicholas APRN, C.N.P., D.N.P., M.S.N. [address] [place] [address] [phone] (Wo rk) 07/31/2022 Lab Laboratory Medicine Tony Rubalcava M. B., Ch.Maurice, MDebra [address] [place] [address] [phone] (Wo rk) 07/31/2022 Lab Laboratory Medicine Tony Rubalcava M. B., [place], Muk[place] [address] [place] [address] [phone] (Wo rk) 07/31/2022 Office Visit Transplant Tony Rubalcava M.B., Sydnie, Mukund [address] [place] [address] [phone] (Wo rk) 07/31/2022 Appointment Radiology Tony Rubalcava M.B., Sydnie, [place] [address] [place] [address] [phone] (Wo rk) 08/01/2022 Office Visit Transplant Tony Rubalcava M.B., Sydnie, [place]und [address] [place] [address] [phone] (Wo rk) 08/01/2022 Clinical Support Transplant Tony Rubalcava M.B., Sydnie, [place]und [address] [place] [address] [phone] (Wo rk) Scheduled Referrals Name Type Priority Associated Diagnoses Order S chedule Pre Operative Outpatient Referral Routine Ventral Hernia Expec rebecca: Evaluation SIDNEY nurse Without Obstruction 01/31/2022 consult (clinic) Or Gangrene (Approximat e), Expires: 01/31/2025 documented as of this encounter Results SARS Coronavirus-2 RNA, V Asymptomatic (02/09/2022 9:36 AM CDT) [facility] Method Time Signature SARS-CoV-2 Swab, 02/09/2022 ECLR Specimen Nasopharynx 10:10 PM Source CDT SARS CoV-2 Undetected Undetected 02/09/2022 ECLR RNA, TMA 10:10 PM CDT Comment: SARS-CoV-2 RNA absent. This result does not rule out COVID-19 in the patient, as the sensitivity of the test depends o n the timing of the specimen collection and the quality of the specim en. Result should be correlated with patient's history and clinical presentat ion. ----ADDITIONAL INFORMATION---- This molecular amplification test was pe rformed using the Aptima SARS-CoV-2 assay ([employer] on the M[place] tem under emergency use authorization (EUA) by the U.S. Food and Drug Administ ration. Fact sheets for this EUA assay can be fo und at the following links: For Healthcare Providers: https://www.[employer] a.gov/media/753178/download For Patients: https://www.fda.gov/media/ 018669/download Specimen Anatomical Collection Method Collection Time Receive d Time (Source) Location / / Volume Laterality Varies 02/09/2022 9:36 AM 3:05 (Nasopharynx) CDT PM CDT Cresencio Chen M.D. LAB MICROBIOLOGY - GENERAL O RDERABLES Performing Organization Address City/State/ZIP Code Phon e Number [facility]- [address] [place] [phone] [facility] [place] [address] System in [address] documented in this encounter Visit Diagnoses Diagnosis Ventral Hernia Without Obstruction Or Ga ngrene - Primary documented in this encounter Additional Health Concerns Assessment Noted Time PHQ-9 Depression Total Score: 3 04/07/2021 9:37 AM CDT documented as of this encounter Care Teams Cast Iron Dipper Relationship Specialty Start Date End Date Elsewhere, Pcp PCP - General 09/17/19 documented as of this encounter
--- OUTSIDE RECORDS SUMMARY | 2022-05-25 13:03 | XMS_ITS | Encounter Summary ---
:1960 Author Organization [facility] Address [address] [place] [id number] Care Team Providers Name Role Phone Elsewhere, Pcp Primary Care Provider Unavailable Encounter Details Date Type Department Care Team Description 02/22/2022 Orders Only Division of Nephrology and [place] Candelario A PRN, Hypertension, Bahai C.N.P. [place], in [place], [address] [place] [address] [place] [id number] [place] [address] [phone] Social History Tobacco Use Types Packs/Day Years [...] How often do you attend alevism or presybeterian 1 to 4 times per year 12/23/2021 [...] An Nicholas APRN C.N.P., D.N.P., M.S.N. [address] [place] [address] [phone] (Wo rk) 07/31/2022 Lab Laboratory Medicine Tony Rubalcava M. B., ChBurke, MDebra [address] [place] [address] [phone] (Wo rk) 07/31/2022 Lab Laboratory Medicine Tony Rubalcava M. B., ChBurke, MDebra [address] [place] [address] [phone] (Wo rk) 07/31/2022 Office Visit Transplant Tony Rubalcava M.B., Sydnie, MDebra [address] [place] [address] [phone] (Wo rk) 07/31/2022 Appointment Radiology Tony Rubalcava M.B.Sydnie M.D. [address] [place] [address] [phone] (Wo rk) 08/01/2022 Office Visit Transplant Tony Rubalcava M.B., [place] [address] [place] [address] [phone] (Wo rk) 08/01/2022 Clinical Support Transplant Tony Rubalcava M.B., [place] [address] [place] [address] [phone] (Wo behzad) documented as of this encounter Visit Diagnoses Not on filedocumented in this encounter Additional Health Concerns Assessment Noted Time PHQ-9 Depression Total Score: 3 04/07/2021 9:37 AM CDT documented as of this encounter Care Teams Shellacker Relationship Specialty Start Date End Date Elsewhere, Pcp PCP - General 09/17/19 documented as of this encounter
--- OUTSIDE RECORDS SUMMARY | 2022-05-25 13:03 | XMS_ITS | Encounter Summary ---
:1960 Author Organization [facility] Address [address] [place] [address] Care Team Providers Name Role Phone Elsewhere, Pcp Primary Care Provider Unavailable Encounter Details Date Type Department Care Team Description 02/09/2022 Lab Department of General Cresencio Chen, Ventral Hernia Without Surgery in Stephen Harmon M.D. Obstruction Or Gangrene [address] [address] [place] [address] [phone] Social History Tobacco Use Types Packs/Day Years [...] How often do you attend sabianist or faith 1 to 4 times per [...] Nicholas APRN, C.N.P., D.N.P., M.S.N. [address] [place] [address] [phone] (Nicolas wen) 07/31/2022 Lab Laboratory Medicine Tony Rubalcava M. B., ChDaviBDavi, M.D. [address] [place] [address] [phone] (Nicolas wen) 07/31/2022 Lab Laboratory Medicine Tony Rubalcava M. B., ChDaviBDavi, M.D. [address] [place] [address] [phone] (Nicolas wen) 07/31/2022 Office Visit Transplant Tony Rubalcava M.B., ChDaviBDavi, M.D. [address] [place] [address] [phone] (Nicolas wen) 07/31/2022 Appointment Radiology Tony Rubalcava M.B., Ch.BDavi, Mukund [address] [place], [place] [phone] (Wo rk) 08/01/2022 Office Visit Transplant Tony Rubalcava M.B., Mukund [place] [address] [place], [place] [phone] (Nicolas wen) 08/01/2022 Clinical Support Transplant Tony Rubalcava M.B., Mukund [place] [address] [place], [place] [phone] (Nicolas wen) documented as of this encounter Procedures Procedure Name Priority Date/Time Associated Diagnosis Comme nts SARS CORONAVIRUS-2 Routine 02/09/2022 9:36 AM Ventral Hernia R esults for this RNA, V CDT Without Obstruction procedur e are in Or Gangrene the results section. documented in this encounter Results SARS Coronavirus-2 RNA, V Asymptomatic (02/09/2022 9:36 AM CDT) [facility] gist Method Time Signature SARS-CoV-2 Swab, 02/09/2022 ECLR [...] pe rformed using the Aptima SARS-CoV-2 assay ([employer] on the [employer] tem under emergency use authorization (EUA) by the U.S. Food and Drug Administ ration. Fact sheets for this EUA assay can be fo und at the following links: For Healthcare Providers: https://www.fd a.gov/media/254401/download For Patients: https://www.fda.gov/media/ 438761/download Specimen Anatomical Collection Method Collection Time Receive d Time (Source) Location / / Volume Laterality Varies 02/09/2022 9:36 AM 3:05 (Nasopharynx) CDT PM CDT Cresencio Chen M.D. LAB MICROBIOLOGY - GENERAL O RDERABLES Performing Organization Address City/State/ZIP Code Phon e Number [employer] [employer]- [address] [place] [address] [phone] [facility] [place] [address] System in [address] documented in this encounter Visit Diagnoses Diagnosis Ventral Hernia Without Obstruction Or Ga ngrene documented in this encounter Additional Health Concerns Infection Onset Date Last Indicated Resolved Time COVID19 Pending 02/09/2022 02/09/2022 02/09/2022 10:10 PM CDT Assessment Noted Time PHQ-9 Depression Total Score: 3 04/07/2021 9:37 AM CDT documented as of this encounter Care Teams Travel Money Advisor Relationship Specialty Start Date End Date Elsewhere, Pcp PCP - General 09/17/19 documented as of this encounter
--- OUTSIDE RECORDS SUMMARY | 2022-05-25 13:03 | XMS_ITS | Encounter Summary ---
:1960 Author Organization [facility] Address [address] [place] [address] Care Team Providers Name Role Phone Elsewhere, [...] How often do you attend sikhism or anabaptism 1 to 4 times per year 12/23/2021 [...] An Nicholas APRN C.N.P., D.N.P., M.S.N. [address] [place] [address] [phone] (Wo rk) 07/31/2022 Lab Laboratory Medicine Tony Rubalcava M. B., Sydnie, MDebra [address] [place] [address] [phone] (Wo rk) 07/31/2022 Lab Laboratory Medicine Tony Rubalcava M. B., Sydnie, MDebra [address] [place] [address] [phone] (Wo rk) 07/31/2022 Office Visit Transplant Tony Rubalcava M.B., ChBurke, MDebra [address] [place] [address] [phone] (Wo rk) 07/31/2022 Appointment Radiology Tony Rubalcava M.B., ChBurke, MDebra [address] [place] [address] [phone] (Wo rk) 08/01/2022 Office Visit Transplant Tony Rubalcava M.B., Sydnie, MDebra [address] [place] [address] [phone] (Wo rk) 08/01/2022 Clinical Support Transplant RufinoallTony M.B., Shashi [place]. [address] [place], [place] 55 [phone] (Wo rk) documented as of this encounter Procedures Procedure Name Priority Date/Time Associated Diagnosis Comme nts SURGERY IMAGE EXAM Routine 02/14/2022 8:15 AM Res ults for this CDT procedure are i n the results section. documented in this encounter Results Non-Radiology Image-Surgery Image Exam (02/14/2022 8:15 AM CDT) Specimen (Source) Anatomical Collection Method Collection Time Re ceived Time Location / / Volume Laterality 02/14/2022 8:15 AM CDT Narrative [facility] - 02/14/2022 11:07 AM CDT This order has been created and [...] documented as of this encounter Care Teams Laboratory Animal Care Veterinarian Relationship Specialty Start Date End Date Elsewhere, Pcp PCP - General 09/17/19 documented as of this encounter
--- OUTSIDE RECORDS SUMMARY | 2022-05-25 13:03 | XMS_ITS | Encounter Summary ---
:1960 Author Organization [facility] Address [address] [place] [address] Care Team Providers Name Role Phone Elsewhere, Pcp Primary Care Provider Unavailable Encounter Details Date Type Department Care Team Description 02/14/2022 Anesthesia Event [facility] MAIN OR Yumiko Pedroza M.D. [address] [employer] [address] [place] [address] [place], [place] [phone] (Wo rk) Anesthesia Record Procedure Summary Procedure Name Responsible Anesthesia Start Anesthesia Stop Anesthesiologist Time Time LAPAROSCOPIC ASSISTED Yumiko Pedroza M.D. 02/14/22 1123 02/14 1438 VENTRAL HERNIA REPAIR WITH MESH (Midline: Abdomen) Events Date Time Event Comment 02/14/2022 1044 1049 An Start Data 1056 an stop data 1123 An Start Machine/Equipmen t Checked Infection Precautions Foll owed Procedure/Site Verified NPO Sta tus Verified Supine Standard ASA Mon itors Applied 1128 An Induction 1132 An Intubation 1132 Turnover to Proceduralist 1206 Proc Start 1207 Gas Insufflation 1431 Turnover to ANE Staff 1431 Airway Removal Criteria Met 1431 Extubation/Airway Removed 1432 Proc Fin 1438 An End I completed my h andoff to the receiving staff during [facility] we 1. Identified the patient 2. Ident ified the responsible provider 3. Revi ewed the pertinent medical history 4. Discussed the surgical course 5. Review ed intra-op anesthesia management and i ssues during anesthesia 6. Set expectati ons for post-procedure period 7. Allowe d opportunity for questions and ac knowledgement of understanding. Name Total ceFAZolin injection 2,000 mg (ANCEF) 2 g midazolam 1 mg/mL injection 4 mg fentaNYL 50 mcg/mL injection 300 mcg ketamine 10 mg/mL injection 70 mg liposomal bupivacaine PF 1.3% injection 20 mL bupivacaine-EPINEPHrine PF 0.25%-1:200,000 injection 4 0 mL lidocaine 2% (mg) injection 40 mg propofol 10 mg/mL 80 mg rocuronium 10 mg/mL injection 80 mg phenylephrine 100 mcg/mL injection 200 mcg ePHEDrine PF 5 mg/mL syringe injection 5 mg ondansetron 4 mg/2 mL injection 4 mg albuterol HFA inhaler 90 mcg/act 6 puff HYDROmorphone 1 mg/mL injection 1 mg sugammadex 100 mg/mL injection 400 mg lactated ringers 1,300 mL Agents No agents on file. Blood No blood administrations on file. Lines, Drains, and Airways Type Details Placement Removal Hemodialysis AV Access Placement Date: 05/06/19 05/06/19 0000 by (present upon arrival to Xin Proctor, pacu) R.N. Ureteral Drain/Stent 09/16/19; 1700; Right; 09/16/19 1700 by Other (Comment) Soraya Garcia, (Internal) R.N. Percutaneous Access 12/23/20; 0819; 12/23/20 0819 by Site Temporary (non-tunneled, Cesar Ybarra, non-implanted); Yes; R.N. Yes; Yes; Yes; Chlorhexidine (Preferred); Yes; Cap, Gloves, Gown, Large drape, Mask (Clinician), Mask (All others in room); Jayesh; (fistula right arm) Percutaneous Access 12/23/20; 0940; 12/23/20 0940 by Site Temporary (non-tunneled, Cesar Ybarra, non-implanted); Yes; R.N. (fistula right arm) Percutaneous Access 01/18/21; 1529; Arterial 01/18/21 1529 by Site and Venous (AV Dialysis Rubina Rivera Fistula ); Yes; Yes; J, R.N. Yes; Yes; Chlorhexidine (Preferred); Yes; Cap, Gloves, Gown, Large drape, Mask (Clinician), Mask (All others in room); N/A; Dr. Canseco ; woggle Puncture 1; 04/07/22 12/10/20 1524 by 04/07/22 0000 b y Joshua Canada , R.N. Hemodialysis AV Access Placement Date: 05/06/19 0000 by 04/07/22 0000 by 05/06/19; Removal Date: Harini Lim Sack ettJoshua, 04/07/22 (duplicate LDA) R.N. R.N. Puncture 12/10/20; 1512; No; 12/10/20 1512 by 04/07/22 00 00 by Neck; Left; 04/07/22 Radha Landin Sackett, Colin J, R.N. R.N. Peripheral IV Placement Date: 02/14/22 1026 by 02/14/22 1626 b y 02/14/22; Placement Radha Angelo R.N. Meyer, L auren E, Time: 1026; Catheter R.N. Size: 20 G; Orientation: Left; Location: Hand; Site Prep: Chlorhexidine (Preferred); Insertion Attempts: 1; Removal Date: 02/14/22; Removal Time: 1626; Removal Reason: Patient discharged ETT Placement Date: 02/14/22 1132 by 02/14/22 1431 b y 02/14/22; Placement Ramona Simmons APRN, Smith, Justin T, Time: 1132 (created via COOPER MATIAS APRN, D.N.P. procedure documentation); Mask Ventilation: Easy mask; Type: Standard ETT; Single Lumen Tube Size: 7 mm; Cuffed: Yes; Blade Size: MAC 3; Location: Oral; Grade View: Grade 2A; Insertion Attempts: 1; Placement Verification: Bilateral breath sounds, Positive ETCO2, Symmetrical chest wall movement; Airway Comment: Grade 2A view with cricoid pressure. Endotracheal tube placed with ease. Dentition unchanged. ; Removal Date: 02/14/22; Removal Time: 1431 Indwelling Urinary Placement Date: 02/14/22 1145 by 04/06/22 203 9 by Catheter 02/14/22; Placement Deo Coffman Armstrong, Kaitlyn Time: 1145; Inserted by: Camron Gardner, RN; Type: Double-lumen, Non-latex; Size: 16 Fr.; Balloon Size: 10 mL; Urine Returned: Yes; Removal Date: 04/06/22; Removal Time: 2038; Removal Reason: No longer in place (no pena in place upon arrival, removing lda) Wound 02/14/22; 1415; N; 02/14/22 1415 by 04/07/22 000 0 by Incision; Abdomen; Deo Coffman Sackett Col in J, Medial, Upper; Dermabond Camron Lyon on port sites x 3, Prevena Wound Vac; 04/07/22 documented in this encounter Social History Tobacco [...] often do you attend roman catholic or oriental orthodox 1 to 4 times per year [...] encounter OR Notes Anesthesia Postprocedure Evaluation - Yumiko Pedroza M.D. - 02/14/2022 3:04 PM CDT Patient: Shabnam Wray Procedure Summary Date: 02/14/22 Room / Location: [address] [facility] / [facility] - GI Anesthesia Start: 1123 Anesthesia Stop: 1438 Procedure: LAPAROSCOPIC ASSISTED VENTRAL HERNIA REPAIR WITH MESH (Midline Abdomen) Diagnosis: Hernia Ventral Recurrent (Ventral Hernia Without Obstruction Or Gangrene [K43.9]) Surgeons: Cresencio Chen M.D. Responsible Provider: Yumiko Pedroza M.D. Anesthesia Type: general with pain block ASA Status: 4 Anesthesia Type: general with pain block Last vitals Vitals Value Taken Time BP 183/105 02/14/22 1500 Temp Pulse 73 02/14/22 1504 Resp SpO2 98 % 02/14/22 1504 Vitals shown include unvalidated device data. Please reference Vitals flowsheet for most recent vital signs. Anesthesia Post Evaluation Patient Disposition: dismissal Cardiovascular status: hemodynamics (HR & BP) acceptable Respiratory status: patent airway with spontaneous effort Temperature: normothermic Oxygen requirements: room air Level of consciousness: awake Pain score: pain adequately controlled and/or at baseline Post Op nausea/vomiting: none Hydration status: euvolemic Anesthesia Procedure Notes - Ramona Simmons APRN, CRNA - 02/14/2022 12:03 PM CDT Associated Order(s): Airway Airway Date/Time: 02/14/2022 11:32 AM Performed by: Ramona Simmons APRN, CRNA Authorized by: Yumiko Pedroza M.D. Patient location during procedure: OR / Procedure Area PROCEDURE DETAILS: Mask difficulty assessment: easy mask Final airway type: direct laryngoscopy, intubation Laryngeal Manipulation: no Final airway difficulty of direct laryngoscopy (DL): 0-easy Final best view of glottic structures - Cormack/Lehane Score: grade 2A ETT location: oral Adult blade type: MAC 3 Adult tube size: 7 Adult ETT distance at teeth/gum: 21 Oral tube type: standard ETT Cuffed: yes Number of attempt to successful placement: 1 Airway confirmation: bilateral breath sounds, positive ETCO2 and bilateral chest rise Other previous techniques attempted: none Additional Comments Grade 2A view with cricoid pressure. Endotracheal tube placed with ease. Dentition unchanged. PRE PROCEDURE DETAILS: Pre evaluation for airway management: procedure Urgency: elective Preop assessment of probable difficulty: no difficulty anticipated Preoxygenation: bag valve mask SEDATION / ANESTHESIA Anesthesia method: anesthesia POST PROCEDURE DETAILS: Procedure outcome: successful Airway event: no complications Anesthesia Procedure Notes - Uzair Fuentes APRN, CRNA, D.N.P. - 02/14/2022 11:02 AM CDTAssociated Order(s): Regional Block Regional Block Date/Time: 02/14/2022 10:45 AM Performed by: Uzair Fuentes APRN, CRNA, D.N.P. Authorized by: Uzair Fuentes APRN, CRNA, D.N.P. Location: Pre Op / PACU PROCEDURE DETAILS: Block Indication: post-op pain block Block indication comment: Post-Op pain block at request of surgeon Block Type - Truncal: transversus abdominous Plane Positioning: supine Laterality: bilateral Block technique: ultrasound guided Ultrasound image guidance used to localize target, identify at risk structures, and dynamically usedto direct therapy to the target. Procedure was performed under sterile conditions.Image(s) acquired and saved Injection technique: single injection Needle type: echogenic Gauge: 20G Length: 10 Test dose: yes- negative test dose Incremental injection of local anesthetic with aspiration every:5cc Pain with needle advancement or injection of local anesthetic: no Injected Medications: Injection(s), anesthetic agent(s) and/or steroid; See MAR UNIVERSAL PROTOCOL All relevant documentation and testing [...] as applicable for the procedure.: yes Skin prep: chlorhexidine / alcohol SEDATION / ANESTHESIA Anesthesia method: local infiltration Local infiltrate type: see [facility] for dose POST-PROCEDURE DETAILS: Procedure completed successfully: successful procedure Other complications: none Anesthesia Preprocedure Evaluation - Yumiko Pedroza M.D. - 02/14/2022 10:43 AM CDT Preprocedure Anesthesia & H&P Assessment Procedure Summary Date/Time: 02/14/22 0996 Procedure: LAPAROSCOPIC HERNIA REPAIR WITH MESH - VENTRAL, POSSIBLE OPEN (N/A ) Diagnosis: Ventral Hernia Without Obstruction Or Gangrene [K43.9] Pre-op diagnosis: Ventral Hernia Without Obstruction Or Gangrene [K43.9] Location: OR [address] [address] / [facility] - GI Surgeons: Cresencio Chen M.D. Pertinent components of the patient's history [...] Stage Renal Disease Dialysis Dependent (HCC) (+) Hypertension And Chronic Kidney Disease Stage 1 To 4 GENETICS (+) Hyperlipidemia HEME (+) Anticoagulant Therapy Other (+) Hernia Abdominal Wall (+) Transplant Renal (HCC) EKG- 03/2021- NSR, ns t Stress Echo- EF 62%, no RWMA noted, concentric LVH Hb 12.9, K 4.3 OBJECTIVE PHYSICAL EXAMINATION Airway (HEENT) Mallampati: II TM Distance: >3 FB Neck ROM: Limited Mouth Opening: >3 cm Upper Lip Bite Test Class: II Cardiovascular Rhythm: Regular Rate: Normal Cardiovascular Assessment: cardiovascular normal Functional Capacity: >4 METS Pulmonary Pulmonary Assessment: Clear General / Constitutional Constitutional Assessment: Normal General State of Health:: healthy appearing and calm Neurological Neurologic Assessment:??alert Dental Dental Assessment: dentition intact ASSESSMENT / PLAN ANESTHESIA PLAN ASA: 4 Anesthesia Plan: general with pain block Stress dose steroids Patient seen and allergies reviewed, anesthesia plan and risks discussed directly with patient /legal guardian or through an electron microscopist. The use of blood products not discussed Approval to Proceed: approved for anesthesia documented in this encounter Plan of Treatment Upcoming Encounters Date Type Specialty Care Team Description 06/01/2022 Telemedicine Pharmacy An Nicholas APRN, C.N.P., D.N.P., M.S.N. [address] [place] [phone] (Nicolas wen) 07/31/2022 Lab Laboratory Medicine Tony Rubalcava M. B., ChDaviBDavi, M.D. [address] [place] [phone] (Nicolas wen) 07/31/2022 Lab Laboratory Medicine Tony Rubalcava M. B., ChDaviBDavi, M.D. [address] [place] [phone] (Nicolas wen) 07/31/2022 Office Visit Transplant Tony Rubalcava M.B., ChDaviBDavi, MDaviD. [address] [place] [phone] (Nicolas wen) 07/31/2022 Appointment Radiology Tony Rubalcava M.B., Mukund Otoole [address] [place], [place] [phone] (Nicolas wen) 08/01/2022 Office Visit Transplant Tony Rubalcava M.B., Mukund Otoole [address] [place], [place] [phone] (Nicolas wen) 08/01/2022 Clinical Support Transplant Tony Rubalcava M.B., Mukund Otoole [address] [place], [place] [phone] (Nicolas wen) documented as of this encounter Procedures Procedure Name Priority Date/Time Associated Comments Diagnosis LDA ANE ENDOTRACHEAL Routine 02/14/2022 11:32 Res ults for this AIRWAY AM CDT procedure are i n the results section. [place] INJ ANES Routine 02/14/2022 10:45 Results for this TRANSABDOM PLANE KASHIF AM CDT procedu re are in the results section. documented in this encounter Results LDA ANE ENDOTRACHEAL AIRWAY (02/14/2022 11:32 AM CDT) Narrative Ramona Simmons APRN, CRNA - 02/14/2022 1 1:32 AM CDT Ramona Simmons APRN, CRNA ? 02/14/2022 12:06 PM Airway Date/Time: 02/14/2022 11:32 AM Performed by: Ramona Simmons APRN, CRNA Authorized by: Yumiko Pedroza M.D. Patient location during procedure: OR / Procedure Area PROCEDURE DETAILS: Mask difficulty assessment: easy mask Final airway type: direct laryngoscopy, intubation Laryngeal Manipulation: no ?? Final airway difficulty of direct laryng oscopy (DL): 0-easy Final best view of glottic structures - Cormack/Lehane Score: grade 2A ETT location: oral Adult blade type: MAC 3 Adult tube size: 7 Adult ETT distance at teeth/gum: 21 Oral tube type: standard ETT Cuffed: yes Number of attempt to successful placemen t: 1 Airway confirmation: bilateral breath so unds, positive ETCO2 and bilateral chest rise Other previous techniques attempted: non e Additional Comments Grade 2A view with cricoid pressure. End otracheal tube placed with ease. Dentition unchanged. ?? PRE PROCEDURE DETAILS: Pre evaluation for airway management: pr ocedure Urgency: elective Preop assessment of probable difficulty: no difficulty anticipated Preoxygenation: bag valve mask SEDATION / ANESTHESIA Anesthesia method: anesthesia POST PROCEDURE DETAILS: ? Procedure outcome: successful ?? Airway event: no complications Yumiko Pedroza M.D. ANESTHESIA ORDERABLES IL INJ ANES TRANSABDOM PLANE KASHIF (02/14/2022 10:45 AM CDT) Narrative Uzair Fuentes APRN, CRNA D.N.P. - 10:45 AM CDT Uzair Fuentes APRN, CRNA D.N.P. ? 02/14/2022 11:03 AM Regional Block Date/Time: 02/14/2022 10:45 AM Performed by: Uzair Fuentes APRN, CRN A, D.N.P. Authorized by: Uzair Fuentes APRN, CR NA D.N.P. Location: Pre Op / PACU PROCEDURE DETAILS: Block Indication: post-op pain block ?? Block indication comment: Post-Op pain b lock at request of surgeon Block Type - Truncal: transversus abdomi nous Plane ?? Positioning: supine ?? Laterality: bilateral Block technique: ultrasound guided ?? Ultrasound image guidance used to locali ze target, identify at risk structures, and dynamically used to dire ct therapy to the target. Procedure was performed under sterile co nditions.Image(s) acquired and saved Injection technique: single injection Needle type: echogenic Gauge: 20G Length: 10 Test dose: yes- negative test dose ?? Incremental injection of local anestheti c with aspiration every:5cc Pain with needle advancement or injectio n of local anesthetic: no ?? Injected Medications: Injection(s), anes thetic agent(s) and/or steroid; See MAR UNIVERSAL PROTOCOL All relevant documentation and testing [...] confirmed in a procedural pause. PRE-PROCEDURE DETAILS: ?? Appropriate hand hygiene, gown, cap, mas k, protective eyewear, sterile gloves, skin preparation, sterile drape, and strict aseptic technique were utilized as applicable for the procedure .: yes ?? Skin prep: chlorhexidine / alcohol SEDATION / ANESTHESIA Anesthesia method: local infiltration Local infiltrate type: see MAR for dose POST-PROCEDURE DETAILS: Procedure completed successfully: succes sful procedure Other complications: none Uzair Fuentes APRN, TAP OUT OPERATOR, D.N.P. PROCEDURE/MINOR SURG ICAL ORDERABLES documented in this encounter Visit Diagnoses Not on filedocumented in this encounter Administered Medications Inactive Administered Medications - up to 3 most recent administrations Medication Order MAR Action Action Date Dose Rate Site albuterol 90 mcg/actuation Given 02/14/2022 12:23 PM CDT 6 puffs inhaler inhalation, As needed, Starting on Sun02/14/22 at 1223, Anesthesia Intra-op bupivacaine liposome (PF) 266 mg/20 mL (13.3 Given 10:55 AM CDT 20 mL mg/mL) injection (EXPAREL) infiltration, As needed, Starting on Sun02/14/22 at 1055, Anesthesia Intra-op bupivacaine-EPINEPHrine (PF) 0.25 %-1:200,000 Given 10:55 AM CDT 40 mL injection (MARCAINE w/EPI) peripheral nerve block, As needed, Starting on Sun02/14/22 at 1055, Anesthesia Intra-op ceFAZolin injection 2,000 mg (ANCEF) Given 02/14/2022 12:03 PM CDT 2 g 2,000 mg (rounded from 2,497.5 mg = 25 m g/kg ? 99.9 kg), intravenous, Once, On Sun02/14/22 at 1015, For 1 dose, Intra-Op, Preoperatively within 1 hour prior to surgical incision If needed, reconstitute vial per package insert instructions. See IVAG for administration guidelines. , Drug Monitoring Program: Pharmacist to adjust medication dosing based on indication and drug clearance factors., Indications: Prophylaxis, surgical ePHEDrine (PF) injection Given 02/14/2022 1:05 PM CDT 5 mg intravenous, As needed, Starting on Sun02/14/22 at 1305, Anesthesia Intra-op fentaNYL injection (SUBLIMAZE) Given 02/14/2022 12:36 PM CDT 50 mcg intravenous, As needed, Starting on Sun02/14/22 at 1047, Anesthesia Intra-op Given 02/14/2022 12:15 PM CDT 50 mcg Given 02/14/2022 11:35 AM CDT 50 mcg HYDROmorphone injection (DILAUDID) Given 02/14/2022 2:25 PM CDT 0.5 mg intravenous, As needed, Starting on Sun02/14/22 at 1359, Anesthesia Intra-op Given 02/14/2022 1:59 PM CDT 0.5 mg ketamine injection (KETALAR) Given 02/14/2022 1:59 PM CDT 20 mg intravenous, As needed, Starting on Sun02/14/22 at 1049, Anesthesia Intra-op Given 02/14/2022 1:22 PM CDT 10 mg Given 02/14/2022 12:36 PM CDT 10 mg lactated ringers New Bag 02/14/2022 2:16 PM CDT 20 mL/hr, intravenous, Continuous, Starting on Sun02/14/22 at 1015, Pre-Op Restarted 02/14/2022 11:24 AM CDT Rate/Dose Verify 02/14/2022 11:23 AM CDT 20 mL/hr lidocaine (PF) (cardiac) injection Given 02/14/2022 11:28 AM CDT 40 mg intravenous, As needed, Starting on Sun02/14/22 at 1128, Anesthesia Intra-op midazolam (PF) injection (VERSED) Given 02/14/2022 10:47 AM CDT 2 mg intravenous, As needed, Starting on Sun02/14/22 at 1045, Anesthesia Intra-op Given 02/14/2022 10:45 AM CDT 2 mg ondansetron (PF) injection (ZOFRAN) Given 02/14/2022 2:29 PM CDT 4 mg intravenous, As needed, Starting on Sun02/14/22 at 1429, Anesthesia Intra-op phenylephrine injection Given 02/14/2022 1:05 PM CDT 100 mcg intravenous, As needed, Starting on Sun02/14/22 at 1203, Anesthesia Intra-op Given 02/14/2022 11:59 AM CDT 100 mcg propofoL injection (DIPRIVAN) Given 02/14/2022 11:33 AM CDT 30 mg intravenous, As needed, Starting on Sun02/14/22 at 1128, Anesthesia Intra-op Given 02/14/2022 11:28 AM CDT 50 mg rocuronium injection (ZEMURON) Given 02/14/2022 1:19 PM CDT 10 mg intravenous, As needed, Starting on Sun02/14/22 at 1129, Anesthesia Intra-op Given 02/14/2022 12:58 PM CDT 10 mg Given 02/14/2022 12:26 PM CDT 10 mg sugammadex injection (BRIDION) Given 02/14/2022 2:20 PM CDT 400 mg intravenous, As needed, Starting on Sun02/14/22 at 1420, Anesthesia Intra-op documented in this encounter Additional Health Concerns Assessment Noted Time PHQ-9 Depression Total Score: 3 04/07/2021 9:37 AM CDT documented as of this encounter Care Teams Agriculture Laboratory Technician Relationship Specialty Start Date End Date Elsewhere, Pcp PCP - General 09/17/19 documented as of this encounter
--- OUTSIDE RECORDS SUMMARY | 2022-05-25 13:03 | XMS_ITS | Encounter Summary ---
:1960 Author Organization [facility] Address [address] [place] [address] Care Team Providers Name Role Phone Elsewhere, Pcp Primary Care Provider Unavailable Encounter Details Date Type Department Care Team Description 02/27/2022 Orders Only Division of Nephrology and Neymar Martínez Hypertension in [place], ., D.O. [place] 200 [facility] [address] [place] [id number] [phone] (Wo rk) Social History Tobacco Use Types [...] How often do you attend anglican or jainism 1 to 4 times per year 12/23/2021 [...] Nicholas APRN C.N.P., D.N.P., M.S.N. [address] [place] [address] [phone] (Wo rk) 07/31/2022 Lab Laboratory Medicine Tony Rubalcava M. B., Sydnie, MDebra [address] [place] [address] [phone] (Wo rk) 07/31/2022 Lab Laboratory Medicine Tony Rubalcava M. B., ChBurke, MDebra [address] [place] [address] [phone] (Wo rk) 07/31/2022 Office Visit Transplant Tony Rubalcava M.B., Sydnie, MDebra [address] [place] [address] [phone] (Wo rk) 07/31/2022 Appointment Radiology Tony Rubalcava M.B., ChBurkeMukund [address] [place] [address] [phone] (Wo rk) 08/01/2022 Office Visit Transplant Tony Rubalcava M.B., Mukund Otoole [address] [place] [address] [phone] (Wo rk) 08/01/2022 Clinical Support Transplant Tony Rubalcava M.B., Mukund Otoole [address] [place] [address] [phone] (Wo rk) documented as of this encounter Visit Diagnoses Not on filedocumented in this encounter Additional Health Concerns Assessment Noted Time PHQ-9 Depression Total Score: 3 04/07/2021 9:37 AM CDT documented as of this encounter Care Teams Semiautomatic Taper Operator Relationship Specialty Start Date End Date Elsewhere, Pcp PCP - General 09/17/19 documented as of this encounter
--- OUTSIDE RECORDS SUMMARY | 2022-05-25 13:03 | XMS_ITS | Encounter Summary ---
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 [address] [place] [phone] Preanesthetic Medical Exam (Primary Dx); [facility] [address] [place] [phone] Ventral Hernia Without Obstruction Or Ga [address] [phone] Social History Tobacco Use Types Packs/Day [...] How often do you attend synagogue or jew 1 to 4 times per [...] documented as of this encounter Progress Notes Jaz Mendoza, R.N. - 02/06/2022 3:45 PM CDT This patient was contacted for a SIDNEY visit on 02/06/2022. Surgical Nurse Senior Sales Assistant Skin Alert Assessment: Complete this section only if the patient is greater than or equal to 18 y/o BMI <19 or >50: no - BMI 36.5 Documented risk factors that indicate higher risk for pressure ulcer? yes Do you have impaired sensation? yes - neuropathy in feet Is patient chair-bound or unable to reposition themselves? no Anesthesia Risk Assessment: Do you have an implanted cardiac device? no. Do you have difficulties lying flat? no Comment: Do you have any jew or other objection to having a blood transfusion? no Teaching: Preoperative education was done with (x) patient () parent () other. It was confirmed the patient/family member had received the following preoperative education sheets:Checklist For Surgical Patients ([id number]),???Surgical Site Infections: Reducing Your Risk ([id number]), Speak Up: Antibiotics ([id number]), Acute Pain and the Healing Process ([id number]) with the Integrative Medicine and Health (NS6859-26), and ???Appointments Required Before Your Surgery?? (no MC). These were reviewed in detail. (x) Preoperative medication education provided through Ask Henning Expert (x) Preoperative COVID-19 testing ordered and discussed with patien Patient/Parent is ready to learn, no apparent learning barriers were identified. Reviewed diagnosis and treatment plan; patient/parent verbalized understanding through teach back. All questions were answered. Patient/Parent has contact information and understands the need to call with any questions orconcerns. Post op appointments: 1st po with surgeon or physician assistant director of nursing: (x) made ()TBD documented in this encounter Plan of Treatment Upcoming Encounters Date Type Specialty Care Team Description 06/01/2022 Telemedicine Pharmacy An Nicholas APRN, C.N.P., D.N.P., M.S.N. [address] [place] [address] [phone] (Wo rk) 07/31/2022 Lab Laboratory Medicine Tony Rubalcava M. B., Ch.Maurice, MDebra [address] [place] [address] [phone] (Wo rk) 07/31/2022 Lab Laboratory Medicine Tony Rubalcava M. B., Ch.Maurice, MElvia. [address] [place] [address] [phone] (Wo rk) 07/31/2022 Office Visit Transplant Tony Rubalcava M.B., Sydnie, Mukund [address] [place] [address] [phone] (Wo rk) 07/31/2022 Appointment Radiology Tony Rubalcava M.B., Sydnie, Mukund [address] [place] [address] [phone] (Wo rk) 08/01/2022 Office Visit Transplant Tony Rubalcava M.B., Sydnie, Mukund [address] [place] [address] [phone] (Wo rk) 08/01/2022 Clinical Support Transplant Tony Rubalcava M.B., Sydnie, Mukund [address] [place] [address] [phone] (Wo rk) documented as of this encounter Visit Diagnoses Diagnosis Preanesthetic Medical Exam - Primary Ventral Hernia Without Obstruction Or Ga ngrene documented in this encounter Additional Health Concerns Assessment Noted Time PHQ-9 Depression Total Score: 3 04/07/2021 9:37 AM CDT documented as of this encounter Care Teams Signals Collection Technician Relationship Specialty Start Date End Date Elsewhere, Pcp PCP - General 09/17/19 documented as of this encounter
--- OUTSIDE RECORDS SUMMARY | 2022-05-25 13:03 | XMS_ITS | Encounter Summary ---
:1960 Author Organization [facility] Address [address] [place] [address] Care Team Providers Name Role Phone Elsewhere, Pcp Primary Care Provider Unavailable Reason for Visit Reason Comments Post-op Hernia LAPAROSCOPIC ASSISTED VENTRA L HERNIA REPAIR WITH MESHLateralityMidline Outpatient (Routine) - Closed Specialty Diagnoses / Procedures Referred By Contact Refer red To Contact General Surgery Cresencio Chen M.D. [facility] Region [address] [place] [phone] Referral ID Status Reason Start Date Expiration Date Visits Requ ested Visits Authorized [id number] Closed 02/14/2022 02/14/2023 1 1 Encounter Details Date Type Department Care Team Description 02/22/2022 Office Visit Department of Lydia Crowley Herniorr haphy Ventral General Surgery in [place], Sharonda-Fracisco., P .A. Status Post (Primary [address] Dx) [address] [place] [phone] Social History Tobacco Use Types Packs/Day [...] 12/23/2021 relatives? How often do you attend confucianist or confucianist 1 to 4 times per year 12/23/2021 services? Do you belong to any clubs or organizations such No 12/23/2021 as confucianist groups, unions, fraternal or athletic groups, or [...] Sign Reading Time Taken Comments Blood Pressure 150/93 02/22/2022 1:56 PM CDT Pulse 79 02/22/2022 1:56 PM CDT Temperature 37 ??C (98.6 ??F) 02/22/2022 1:56 PM CDT Respiratory Rate - - Oxygen Saturation - - Inhaled Oxygen Concentration - - Weight - - Height - - Body Mass Index - - documented in this encounter Patient Instructions Patient InstructionsLydia Crowley P.A.-C., P.A. - 02/22/2022 3:07 PM CDT Images from the original note were not included. After Hernia Surgery You can usually go [...] you???re healing well. During visits, your stitches, mariela, or bandage may be removed. Call your doctor if you have any of the following: A large amount of swelling or bruising (some testicular swelling and bruising is normal) Fever over 101??F Bleeding Increasing pain, redness, or drainage Trouble urinating ?? [id number] [facility], [address] [place] [address]. All rights reserved. This information is not intended as a substitute for professional medical care. Always follow your healthcare professional's instructions. Incision Care Remember: Follow-up visits allow your doctor to make sure your incision is healing well. Be sure to keep your appointments. Sutures (stitches), surgical mariela, adhesive tapes,or surgical glue may be used [...] wound heals Fever above 101.0??F (38.3??C) ?? 5599-1537 [place] [address]. All rights reserved. This information is not intended as a substitute for professional medical care. Always follow your healthcare professional's instructions. documented in this encounter Progress Notes Feliberto Penny M.D. - 02/22/2022 2:15 PM CDT SUBJECTIVE CHIEF COMPLAINT/REASON FOR VISIT Post-Operative Visit Referring provider: Cresencio Chen M.D. HISTORY OF PRESENT ILLNESS Shabnam Wray is a 61 y.o. female seen in postoperative follow-up. She is doing well following surgery. She had surgery on 02/14 where she underwent a laparoscopic-assisted ventral hernia repair. She has been doing well since surgery. Pain is well controlled with Tylenol alone at this point time.She continues to tolerate p.o. intake and continues to have robust bowel function. She has not had any abdominal distention. She continues to wear her abdominal binder. She has a incisional wound VAC in place. She has not had any fluid out through the incisional wound VAC. She restarted her warfarin on postop day 1. This is still subtherapeutic at this point time. OBJECTIVE PHYSICAL EXAM General: Alert and oriented, no acute distress Pulmonary: Nonlabored respirations Abdominal: Soft, nondistended, nontender. Incisional wound VAC in place, taken down. Incision is clean dry and intact. Mariela in place. Left lateral laparoscopic sites with Dermabond. Clean dry and intact. ASSESSMENT / PLAN Ms. Wray is doing well postoperatively. Pain is well controlled. Continues to tolerate a diet appropriately. Continues to have bowel function. Continues to have minimal urinary output per her baseline. She continues to limit her activities and heavy lifting. She has been wearing the abdominal binder. Incisional wound VAC remained in place we took this down. Her incision looks like it is healing appropriately underneath. She has restarted her anticoagulation she is still subtherapeutic. She is otherwise doing well. We reiterated with her the activity restrictions associated with hernia repair. We discussed with her theplan for follow-up for staple removal. We discussed expected course from this point and she expressed understanding. All of her questions were answered to her satisfaction. She will contact us if she has any additional questions or concerns. The patient will follow-up with us in 1 week. Lydia Crowley, P.A.-C., P.A. - 02/22/2022 2:15 PM CDT SUBJECTIVE CHIEF COMPLAINT/REASON FOR VISIT Post-Operative Visit Referring provider: Dr. Cresencio Chen Status postoperative laparoscopic assisted midline ventral hernia repair with mesh performed on 2021 Postoperative day 8. HISTORY OF PRESENT ILLNESS Shabnam Wray is a very pleasant 61 y.o. female seen in postoperative follow-up. She is seen today in conjunction with Dr. Feliberto Penny MD, general surgery resident. Patient states she has been doing and feeling well today and following surgery. Has been mindful of lifting restrictions; no more than 15 lb for 12 weeks time. Pain is controlled with OTC remedies. Bowel and bladder function normal. OBJECTIVE Vitals: 02/22/22 1356 BP: (!) 150/93 Pulse: 79 Temp: 37 ??C TempSrc: Temporal PainSc: 4 PainLoc: Incisional PHYSICAL EXAMINATION General: Awake, alert, oriented. In no acute distress. Sitting comfortably in examination room. HEENT: Head normocephalic, atraumatic. Symmetrical facial features. RESP: Regular rate and rhythm. Normal respiratory effort. ABDOMEN: Incisional VAC discontinued by Dr. Penny. Psychiatric: Normal affect, pleasant and cooperative. DIAGNOSTICS I have reviewed this patient's laboratory and diagnostic results. ASSESSMENT / PLAN #1 Herniorrhaphy Ventral Status Post Other orders - General Surgery Post Op (clinic) A 61-year-old female status postoperative laparoscopic-assisted midline ventral hernia repair with mesh; stable, postoperative day 8. PLAN: Shabnam Wray is progressing as expected postoperatively. We discussed the operative findings and expected course from this point and she expressed understanding. All of her questions were answered to her satisfaction. She will contact us if she has any additional questions or concerns. The patient will follow-up with us in 1 week. We reviewed ongoing postoperative parameters including pain management with OTC remedies, ongoing incision care (incisional vacuum removed today; staple removal planned for her next visit, see below), and ongoing activity parameters including reviewed the lifting restrictions of no more than 15 lb for 12 weeks' time. She will follow up with our department on Sunday, February 27, 2022 for an additional postoperative visit and staple removal and is encouraged to contact us with any questions or concerns that arise. Lydia Crowley P.A.-C., P.A. documented in this encounter Plan of Treatment Upcoming Encounters Date Type Specialty Care Team Description 06/01/2022 Telemedicine Pharmacy An Nicholas APRN, C.N.P., D.N.P., M.S.N. [address] [place], [place] 55 [phone] (Wo rk) 07/31/2022 Lab Laboratory Medicine Tony Rubalcava M. B., Sydnie, Mukund [address] [place] [address] 55 [phone] (Wo rk) 07/31/2022 Lab Laboratory Medicine Tony Rubalcava M. B., Sydnie, Mukund [address] [place] [address] 55 [phone] (Wo rk) 07/31/2022 Office Visit Transplant Tony Rubalcava M.B., Sydnie, Mukund [address] [place] [address] 55 [phone] (Wo rk) 07/31/2022 Appointment Radiology Tony Rubalcava M.B., Sydnie, Mukund [address] [place] [address] 55 [phone] (Wo rk) 08/01/2022 Office Visit Transplant Tony Rubalcava M.B., Sydnie, MDebra [address] [place] [address] 55 [phone] (Wo rk) 08/01/2022 Clinical Support Transplant Tony Rubalcava M.B., Sydnie, MDebra [address] [place] [address] [phone] (Wo rk) documented as of this encounter Visit Diagnoses Diagnosis Herniorrhaphy Ventral Status Post - Prim alfie documented in this encounter Additional Health Concerns Assessment Noted Time PHQ-9 Depression Total Score: 3 04/07/2021 9:37 AM CDT documented as of this encounter Care Teams Die Barber Relationship Specialty Start Date End Date Elsewhere, Pcp PCP - General 09/17/19 documented as of this encounter
--- OUTSIDE RECORDS SUMMARY | 2022-05-25 13:03 | XMS_ITS | Encounter Summary ---
:1960 Author Organization [facility] Address [address] [place] [address] Care Team Providers Name Role Phone Elsewhere, Pcp Primary Care Provider Unavailable Encounter Details Date Type Department Care Team Description 02/27/2022 Orders Only Division of Nephrology and Neymar Martínez Hypertension in [place], ., D.O. [place] 200 [facility] 200 [place] [phone] (Wo rk) Social History Tobacco Use Types [...] 12/23/2021 relatives? How often do you attend mandaeism or hoahaoism 1 to 4 times per year 12/23/2021 services? Do you belong to any clubs or organizations such No 12/23/2021 as mandaeism groups, unions, fraternal or athletic groups, or [...] An Nicholas APRN C.N.P., D.N.P., M.S.N. [address] [place] [address] 55 [phone] (Wo rk) 07/31/2022 Lab Laboratory Medicine Tony Rubalcava M. B., Sydnie, MDebra [address] [place] [address] 55 [phone] (Wo rk) 07/31/2022 Lab Laboratory Medicine Tony Rubalcava M. B., ChBurke, MDebra [address] [place] [address] 55 [phone] (Wo rk) 07/31/2022 Office Visit Transplant Tony Rubalcava M.B., Sydnie, MDebra [address] [place] [address] 55 [phone] (Wo rk) 07/31/2022 Appointment Radiology Tony Rubalcava M.B., ChBurkeMukund [address] [place] [address] 55 [phone] (Wo rk) 08/01/2022 Office Visit Transplant Tony Rubalcava M.B., Mukund [place] [address] [place] [address] 55 [phone] (Wo rk) 08/01/2022 Clinical Support Transplant Tony Rubalcava M.B., Mukund [place] [address] [place] [address] 55 [phone] (Wo rk) documented as of this encounter Visit Diagnoses Not on filedocumented in this encounter Additional Health Concerns Assessment Noted Time PHQ-9 Depression Total Score: 3 04/07/2021 9:37 AM CDT documented as of this encounter Care Teams Movie Extra Relationship Specialty Start Date End Date Elsewhere, Pcp PCP - General 09/17/19 documented as of this encounter
--- OUTSIDE RECORDS SUMMARY | 2022-05-25 13:04 | XMS_ITS | Encounter Summary ---
:1960 Author Organization [facility] Address [address] [place] [address] Care Team Providers Name Role Phone Elsewhere, Pcp Primary Care Provider Unavailable Encounter Details Date Type Department Care Team Description 01/03/2022 Lab Department of Laboratory Ayanna Hooker, Ureteral Stent Exchange Medicine and Pathology, Mukund, M. B.A. [facility] in [address] [place] [address] [place] [phone] [place] [address] [phone] Social History Tobacco Use Types Packs/Day Years [...] How often do you attend sabianist or quaker 1 to 4 times per year 12/23/2021 [...] Nicholas APRN, C.N.P., D.N.P., M.S.N. [address] [place] [address] 55 [phone] (Nicolas wen) 07/31/2022 Lab Laboratory Medicine Tony Rubalcava M. B., ChBurke, MElvia. [address] [place] [address] 55 [phone] (Nicolas wen) 07/31/2022 Lab Laboratory Medicine Tony Rubalcava M. B., ChBurke, M.Michelle. [address] [place] [address] 55 [phone] (Nicolas wen) 07/31/2022 Office Visit Transplant Tony Rubalcava M.B., ChBurke, MElvia. [address] [place] [address] 55 [phone] (Nicolas wen) 07/31/2022 Appointment Radiology Tony Rubalcava M.B., [place]und [place] [address] [place], [place] 55 [phone] (Wo rk) 08/01/2022 Office Visit Transplant Tony Rubalcava M.B., [place]und [place] [address] [place], [place] 55 [phone] (Nicolas wen) 08/01/2022 Clinical Support Transplant Tony Rubalcava M.B., [place]und [place] [address] [place], [place] 55 [phone] (Nicolas rk) documented as of this encounter Procedures Procedure Name Priority Date/Time Associated Diagnosis Comme nts SARS COV-2 RNA, Routine 01/03/2022 12:54 PM Ureteral Stent Res ults for this PCR, VARIES CDT Exchange procedure are i n the results section. documented in this encounter Results SARS CoV-2 RNA, PCR, Varies Asymptomatic (01/03/2022 12:54 PM CDT) [facility] Method Time Signature SARS CoV-2 Swab, 01/03/2022 DTL RNA, PCR, Nasopharynx 5:32 PM CDT Source SARS CoV-2 Undetected Undetected 01/03/2022 DTL RNA, PCR 5:32 PM CDT Comment: SARS-CoV-2 RNA absent. This result does not rule out COVID-19 in the patient, as the sensitivity of the test depends o n the timing of the specimen collection and quality of the specimen. Result should be correlated with patient's history and clinical presentat ion. ----ADDITIONAL INFORMATION---- This RT-PCR test has received Emergency Use Authorization (EUA) by the U.S. Food and Drug Administration an d is used per adjunct phlebotomy instructor's instructions. Performance characteristics were verified by [facility] in a manner consistent with CLIA requirements. Visit the CDC website: https://www.cdc.g ov/coronavirus/ for the most recent guidelines on Coron avirus testing. Fact Sheet for Healthcare Providers: https://www.fda.gov/media/506101/downloa d Fact Sheet for Patients: https://www.fda.gov/media/319162/downloa d Specimen Anatomical Collection Method Collection Time Receive d Time (Source) Location / / Volume Laterality Varies 01/03/2022 12:54 01/03/2022 1:48 (Nasopharynx) PM CDT PM CDT Ayanna Hooker M.D., M.B.A. LAB MICROBIOLOGY - GENERAL ORDERABLES Performing Organization Address City/State/ZIP Code Phon e Number [facility] - [address] [place], [place] [address] [place] [address] [facility] [address] documented in this encounter Visit Diagnoses Diagnosis Ureteral Stent Exchange documented in this encounter Additional Health Concerns Infection Onset Date Last Indicated Resolved Time COVID19 Pending 01/03/2022 01/03/2022 01/03/2022 5:33 PM CDT Assessment Noted Time PHQ-9 Depression Total Score: 3 04/07/2021 9:37 AM CDT documented as of this encounter Care Teams Director Retirement Relationship Specialty Start Date End Date Elsewhere, Pcp PCP - General 09/17/19 documented as of this encounter
--- OUTSIDE RECORDS SUMMARY | 2022-05-25 13:04 | XMS_ITS | Encounter Summary ---
:1960 Author Organization [facility] Address [address] [place] [address] Care Team Providers Name Role Phone Elsewhere, Pcp Primary Care Provider Unavailable Encounter Details Date Type Department Care Team Description 12/12/2021 Documentation Department of Nephrology Tushar Martínez in [place], Lissy torrez Jr., D.ODavi [address] [place] [phone] [place], [place] [phone] (Wo rk) Social History Tobacco Use Types Packs/Day Years Used Date Smoking Tobacco: Every Day Cigarettes 0.8 45 S tarted: 01/29/1975 Smokeless Tobacco: Never Alcohol Use Standard [...] 12/23/2021 relatives? How often do you attend congregation or zoroastrian 1 to 4 times per year 12/23/2021 services? Do you belong to any clubs or organizations such No 12/23/2021 as congregation groups, unions, fraternal or athletic groups, or [...] this encounter Progress Notes Steve Martínez Jr., D.Jhonny. - 12/12/2021 8:35 AM CDT Care coordination note: Please see the Sofiya scanned in note in Care everywhere. I am visiting with her on dialysis today, and she mentions that her incisional, periumbilical herniais giving her more discomfort. We had previously hope that she would be called for transplant and this could be repaired at the time of her transplant. I am going to request a general surgery consult for consideration of repair of this periumbilical hernia. She has done well with anesthesia in the past, has no implants, is able to ascend a flight of stairswithout difficulty. Of note, she is orally anticoagulated for access patency, and we would need to hold her warfarin inthe perioperative time frame. She would not need heparin bridging. Otherwise she is optimized for anesthesia. documented in this encounter Plan of Treatment Upcoming Encounters Date Type Specialty Care Team Description 06/01/2022 Telemedicine Pharmacy An Nicholas APRN, C.N.P., D.N.P., M.S.N. [address] [place] [address] [phone] (Wo rk) 07/31/2022 Lab Laboratory Medicine Tony Rubalcava M. B., Sydnie, MDebra [address] [place] [address] [phone] (Wo rk) 07/31/2022 Lab Laboratory Medicine Tony Rubalcava M. B., Sydnie, [place]und [address] [place] [address] [phone] (Wo rk) 07/31/2022 Office Visit Transplant Tony Rubalcava M.B., Sydnie, Mukund [address] [place] [address] [phone] (Wo rk) 07/31/2022 Appointment Radiology Tony Rubalcava M.B., Sydnie, MDebra [address] [place] [address] [phone] (Wo rk) 08/01/2022 Office Visit Transplant Tony Rubalcava M.B., Sydnie, MDebra [address] [place] [address] 55 [phone] (Wo rk) 08/01/2022 Clinical Support Transplant Tony Rubalcava M.B., Sydnie, MDebra [address] [place] [address] [phone] (Wo rk) documented as of this encounter Visit Diagnoses Not on filedocumented in this encounter Additional Health Concerns Assessment Noted Time PHQ-9 Depression Total Score: 3 04/07/2021 9:37 AM CDT documented as of this encounter Care Teams Teacher Early Childhood Development Relationship Specialty Start Date End Date Elsewhere, Pcp PCP - General 09/17/19 documented as of this encounter
--- OUTSIDE RECORDS SUMMARY | 2022-05-25 13:04 | XMS_ITS | Encounter Summary ---
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 200 [place] [address] Referral ID Status Reason Start Date Expiration Date Visits Requ ested Visits Authorized [id number] Closed 01/30/2022 01/30/2023 1 1 Scheduling Instructions Red wing or phillips falls on warfarin, di alysis mwf ? Able to be outpatient Encounter Details Date Type Department Care Team Description 01/30/2022 Orders Only Division of Nephrology Steve Martínez Renal End Stage (HCC) (Primary Dx); and Hypertension in Fracisco Garcia D.O. Hernia Abdominal Wall [place], [place] [address] [facility] 200 [place] [phone] Social History Tobacco Use Types Packs/Day Years [...] 12/23/2021 relatives? How often do you attend latter-day or latter day 1 to 4 times per year 12/23/2021 services? Do you belong to any clubs or organizations such No 12/23/2021 as latter-day groups, unions, fraternal or athletic groups, or [...] An Nicholas APRN, C.N.P., D.N.P., M.S.N. [address] [place] [address] [phone] (Wo rk) 07/31/2022 Lab Laboratory Medicine Tony Rubalcava M. B., Ch.BDavi, M.D. [address] [place] [address] [phone] (Wo rk) 07/31/2022 Lab Laboratory Medicine Tony Rubalcava M. B., Sydnie, Mukund [address] [place] [address] [phone] (Wo rk) 07/31/2022 Office Visit Transplant Tony Rubalcava M.B., Sydnie, Mukund [address] [place] [address] [phone] (Wo rk) 07/31/2022 Appointment Radiology Tony Rubalcava M.B., Sydnie, Mukund [address] [place] [address] [phone] (Wo rk) 08/01/2022 Office Visit Transplant Tony Rubalcava M.B., Sydnie, MDebra [address] [place] [address] [phone] (Wo rk) 08/01/2022 Clinical Support Transplant Tony Rubalcava M.B., Sydnie, MDebra [address] [place] [address] [phone] (Wo rk) Scheduled Referrals Name Type Priority Associated Diagnoses Order [facility] Surgery - Outpatient Referral Routine Failure Renal En d Expected: Hernia consult Stage (HCC) 01/30/2022 (clinic) Hernia Abdominal (Approximat e), Wall Expires: 05/02/2023 documented as of this encounter Visit Diagnoses Diagnosis Failure Renal End Stage (HCC) - Primary Hernia Abdominal Wall documented in this encounter Additional Health Concerns Assessment Noted Time PHQ-9 Depression Total Score: 3 04/07/2021 9:37 AM CDT documented as of this encounter Care Teams Intelligence Officer Basic Relationship Specialty Start Date End Date Elsewhere, Pcp PCP - General 09/17/19 documented as of this encounter
--- OUTSIDE RECORDS SUMMARY | 2022-05-25 13:04 | XMS_ITS | Encounter Summary ---
:1960 Author Organization [facility] Address [address] [place] [address] Care Team Providers Name Role Phone Elsewhere, Pcp Primary Care Provider Unavailable Encounter Details Date Type Department Care Team Description 12/27/2021 Hospital Encounter Department of Ayanna Hooker Stent Laboratory Medicine Mukund Henning, Exchange and [facility]ology[facility] [address] [facility] [address] [place], [place] [address] [facility] [address] [place], [place] [phone] (Work) [phone] Social History Tobacco Use Types Packs/Day Years [...] How often do you attend restorationism or anabaptist 1 to 4 times per [...] 06/2004/07/2022 mg tablet BY MOUTH EVERY EVENING Bystolic 10 mg TAKE 1 TABLET(10 MG) [...] mycophenolate TAKE 1 CAPSULE(250 180 capsule 3 03/01/2021 (CELLCEPT) 250 mg MG) BY MOUTH TWICE capsule DAILY. DO NOT BREAK, CUT, OR OPEN CAPSULES predniSONE (DELTASONE) TAKE 1 TABLET(5 MG) 90 tablet 3 02/1704/07/2022 5 mg tablet BY MOUTH DAILY rosuvastatin (CRESTOR) TAKE 1 TABLET BY 90 tablet 3 021 12/30/2021 5 mg tablet MOUTH DAILY rosuvastatin (CRESTOR) TAKE 1 TABLET [...] mg total) by mouth daily. 4.5 mg Mon-Wed-Fri, 4 mg other days documented as of this encounter Plan of Treatment Upcoming Encounters Date Type Specialty Care Team Description 06/01/2022 Telemedicine Pharmacy An Nicholas APRN, C.N.P., D.N.P., M.S.N. [address] [place] [address] [phone] (Nicolas wen) 07/31/2022 Lab Laboratory Medicine Tony Rubalcava M. B., Ch.B., M.D. [address] [place] [address] [phone] (Wo behzad) 07/31/2022 Lab Laboratory Medicine Tony Rubalcava M. B., Sydnie, Mukund [address] [place] [address] [phone] (Wo rk) 07/31/2022 Office Visit Transplant Tony Rubalcava M.B., Mukund [place] [address] [place] [address] [phone] (Wo rk) 07/31/2022 Appointment Radiology Tony Rubalcava M.B., Mukund [place] [address] [place] [address] [phone] (Wo rk) 08/01/2022 Office Visit Transplant Tony Rubalcava M.B., Mukund [place] [address] [place] [address] [phone] (Wo rk) 08/01/2022 Clinical Support Transplant oTny Rubalcava M.B., Sydnie, Mukund [address] [place] [address] [phone] (Wo rk) documented as of this encounter Procedures Procedure Name Priority Date/Time Associated Diagnosis Comme nts BACTERIAL CULTURE, Routine 12/27/2021 11:29 AM Ureteral Stent Results for this AEROBIC + SUSC, CDT Exchange procedure ar e in URINE the results section. documented in this encounter Results Bacterial Culture, Aerobic + Susc, Urine (12/27/2021 11:29 AM CDT) Component Value Ref Test Analysis Performed At [facility] gist Range Method Time Signature Urine Mixed Bibiana, 12/28/2021 DTL Culture susceptibilities 8:15 AM CDT not performed per laboratory criteria. Specimen Anatomical Collection Method Collection Time Receive d Time (Source) Location / / Volume Laterality Urine (Urine, 12/27/2021 11:29 12/27/2021 1:14 Straight AM CDT PM CDT Catheter) Comment: Specimen Source Site: Urine Ayanna Hooker M.D., M.B.A. LAB MICROBIOLOGY - GENERAL ORDERABLES Performing Organization Address City/State/ZIP Code Phon e Number [facility] - [address] [place], [place] [address] [facility] [place] [address] Laboratories-[facility] [address] documented in this encounter Visit Diagnoses Diagnosis Ureteral Stent Exchange documented in this encounter Additional Health Concerns Assessment Noted Time PHQ-9 Depression Total Score: 3 04/07/2021 9:37 AM CDT documented as of this encounter Care Teams Painter Hand Relationship Specialty Start Date End Date Elsewhere, Pcp PCP - General 09/17/19 documented as of this encounter
--- OUTSIDE RECORDS SUMMARY | 2022-05-25 13:04 | XMS_ITS | Encounter Summary ---
:1960 Author Organization [facility] Address [address] [place] [address] Care Team Providers Name Role Phone Elsewhere, Pcp Primary Care Provider Unavailable Encounter Details Date Type Department Care Team Description 01/05/2022 Hospital Encounter Outpatient Procedure Kristopher Spear, Center in [address] 200 [place] [address] [phone] (Wo rk) Social History Tobacco Use Types [...] How often do you attend sabianist or rastafarian 1 to 4 times per [...] Reading Time Taken Comments Blood Pressure 152/92 01/05/2022 11:45 AM CDT Pulse 76 01/05/2022 11:45 AM CDT Temperature 36.5 ??C (97.7 ??F) 01/05/2022 10:54 AM CDT Respiratory Rate 22 01/05/2022 11:45 AM CDT Oxygen Saturation 93% 01/05/2022 11:45 AM CDT Inhaled Oxygen Concentration - - Weight - - Height - - Body Mass Index - - documented in this encounter Medications at Time of Discharge Medication Sig Dispensed Refills Start Date End Date gabapentin (NEURONTIN) TAKE 3 CAPSULES BY 450 capsule 3 03/21 100 mg capsule MOUTH IN THE MORNING AND 2 CAPSULES IN THE EVENING hydrocortisone Apply 1 application 0 09/18/2017 (for_HYTONE) 2.5 % topically daily as cream needed (Eczema). amLODIPine (NORVASC) 5 TAKE 1 TABLET(5 MG) 90 tablet 3 06/2004/07/2022 mg tablet BY MOUTH EVERY EVENING mycophenolate TAKE 1 CAPSULE(250 180 capsule 3 03/01/2021 (CELLCEPT) 250 mg MG) BY MOUTH TWICE capsule DAILY. DO NOT BREAK, CUT, OR OPEN CAPSULES tacrolimus (PROGRAF) 1 Take 3 capsules (3 450 capsule 3 02/1704/07/2022 mg capsule mg total) by mouth every morning AND 2 capsules (2 mg total) every evening. warfarin (COUMADIN) 2 Take 2-2.5 tablets 150 tablet 5 202104/07/2022 mg tablet (4-5 mg total) by mouth daily. 4.5 mg Mon-Sun-Sun, 4 mg other days acetaminophen (TYLENOL) Take 2 tablets 0 05/12/20 19 04/07/2022 500 mg tablet (1,000 mg total) by mouth every 6 (six) hours as needed for pain. Bystolic 10 mg TAKE 1 TABLET(10 MG) 90 tablet 3 08/30/2020 04/07/2022 tabletIndications: BY MOUTH DAILY Transplant Renal (HCC) calcium carbonate Chew 2 tablets 2 0 0 04/07/2022 (TUMS) 500 mg (200 mg (two) times a day calcium) chewable with meals. Lunch tablet and dinner. cefdinir (OMNICEF) 300 Take 1 capsule (300 12 capsule 0 12/1802/14/2022 mg capsule mg total) by mouth 2 (two) times a day before breakfast and dinner. Skip day of surgery. lidocaine-prilocaine APPLY TOPICALLY TO 60 g 11 020 04/07/2022 (EMLA) 2.5-2.5 % cream DIALYSIS ACCESS SITE 30 MINUTES PRIOR TO TREATMENT--GENERIC FOR EMLA predniSONE (DELTASONE) TAKE 1 TABLET(5 MG) 90 [...] Take with largest meal of the day documented as of this encounter Nursing Notes Юлия Blood R.N. - 01/05/2022 12:[address] avendano pt aware is a dialysis pt. She rarely voids so does not need to to void prior to dismissal. documented in this encounter OR Notes Op Note - Tanvir Avendano M.D. - 01/05/2022 10:29 AM CDT Pre-op Diagnosis Ureteral Stent Exchange Post-op Diagnosis Ureteral Stent Exchange Findings As expected. Complications None Operative Note Narrative 1. Cystoscopy was negative for any concerning papillary or erythematous lesions. 2. Very minimal stent encrustation despite the stent being in for 14 months. 3. Limited right retrograde pyelogram demonstrated no hydronephrosis, filling defects, strictures, or contrast extravasation. 4. Uncomplicated exchange of right-sided Imajin stent with 8 [id number] JJ stent, located within the patient's transplanted kidney. Plan: - given minimal incrustation despite the stent being in for 14 months, we will plan on a stent exchange in 12 months. Message sent to the primary team. After appropriate patient identification and verification of informed consent, the patient was brought into the OR and placed under MAC. The patient was then prepped and draped in the standard sterile fashion in the dorsal lithotomy position. After surgical pause and confirmation of antibiotic administration, we proceeded with a rigid cystoscopy. The anterior urethra appeared normal. The sphincter coapted appropriately. The bladder was systematically examined which demonstrated normal bladder mucosawith no apparent papillary lesions, erythematous lesions, cellules, diverticula, or trabeculations. A stent was noted to be emanating from the right neoureteral orifice with minimal encrustation. Using the grasping forceps, the distal end of the stent was grasped and brought out to the urethral meatus under fluoroscopy. A 0.035 sensor-tip wire was advanced through the lumen of the stent withoutdifficulty until the tip was visualized up in the renal collecting system of the right transplanted kidney. The old stent was then removed over the wire. At this point, a [place] catheter was advanced over the guidewire to the mid ureter. ??The wire was removed, and a retrograde pyelogram was performed. ??This demonstrated no hydronephrosis, filling defects, strictures, contrast extravasation. ??The Sensor-tip guidewire was replaced, and the [place] T[place] catheter was removed over wire. A new 8 Fr x20 cm JJ Imajin ureteral stent was advanced over the wire and deployed in the standard fashion off dangle with excellent proximal curl in the renal pelvis confirmed fluoroscopically and excellent distal curl confirmed cystoscopically in the bladder. The cystoscope was removed and the bladder was partially drained at the conclusion of procedure. The patient was awoken from anesthesia and transferred to the recovery room in stable condition. Tanvir Avendano M.D. documented in this encounter Plan of Treatment Upcoming Encounters Date Type Specialty Care Team Description 06/01/2022 Telemedicine Pharmacy An Nicholas APRN CDaviNDaviPDavi, D.N.P., M.S.N. [address] [place] [address] [phone] (Nicolas rk) 07/31/2022 Lab Laboratory Medicine Tony Rubalcava M. B., Sydnie, MElvia. [address] [place] [address] [phone] ( behzad) 07/31/2022 Lab Laboratory Medicine Tony Rubalcava M. B., ChBurke, MDebra [address] [place] [address] [phone] ( behzad) 07/31/2022 Office Visit Transplant Tony Rubalcava M.B., ChDaviBDavi, MDebra [address] [place] [address] [phone] ( bhezad) 07/31/2022 Appointment Radiology Tony Rubalcava M.B., ChBurke, MElvia. [address] [place] [address] [phone] ( behzad) 08/01/2022 Office Visit Transplant Tony Rubalcava M.B., Mukund [place] [address] [place], [place] 55 [phone] (Wo behzad) 08/01/2022 Clinical Support Transplant Tony Rubalcava M.B., Mukund [place] [address] [place], [place] [phone] (Nicolas wen) documented as of this encounter Procedures Procedure Name Priority Date/Time Associated Comments Diagnosis FL FLUORO LESS RAD - Routine 01/05/2022 11:11 Results for this THAN 1 HOUR (most inpatients AM CDT procedure a re in and all the results outpatients) section. INR, POCT, B Routine 01/05/2022 9:44 Results for this AM CDT procedure are i n the results section. EXCHANGE URETERAL 01/05/2022 9:40 Ureteral Stent STENT AM CDT Exchange Special Needs Spear Primary. documented in this encounter Results FL Fluoro Less Than 1 Hour (01/05/2022 11:11 AM CDT) Specimen (Source) Anatomical Location Collection Method / Collectio n Time Received Time / Laterality Volume Narrative [id number] - 01/05/2022 11:13 AM CDT This exam does not require a radiologist review or interpretation. Please refer to the patient's medical record on this date for clinical details. Tanvir Avendano M.D. IMEdinson FLUOROSCOPY PROCEDURES Performing Organization Address City/State/ZIP Code Phon e Number [id number] NA INR, POCT (01/05/2022 9:44 AM CDT) P athologist Signature INR, POCT, B 1.4 01/05/2022 PCMO 9:48 AM CDT Comment: ----ADDITIONAL INFORMATION---- Standard intensity warfarin therapeutic range: 2.0 to 3.0 ?? High intensity warfarin therapeutic rang e: 2.5 to 3.5 Specimen Anatomical Collection Method Collection Time Receive d Time (Source) Location / / Volume Laterality Blood 01/05/2022 9:44 AM 05/19/202 2 9:49 CDT AM CDT Unknown Provider LAB POCT ORDERABLES - DEVICE Performing Organization Address City/State/ZIP Code Phon e Number POC RST [facility] [address] [place] [address] OUTPATIENT LABS PCMO [facility] [place] [address] [place] [facility] [address] documented in this encounter Visit Diagnoses Not on filedocumented in this encounter Administered Medications Inactive Administered Medications - up to 3 most recent administrations Medication Order MAR Action Action Date Dose Rate Site acetaminophen tablet 1,000 mg Given 01/05/2022 9:38 AM CDT 1,000 mg (TYLENOL) 1,000 mg, oral, Once, On Elizabeth 01/05/22 at 0930, For 1 dose, Pre-Op lactated ringers Restarted 01/05/2022 10:14 AM CDT 80 mL/hr, intravenous, Continuous, Starting on Elizabeth 01/05/22 at 0930 New Bag 01/05/2022 9:50 AM CDT 20 mL/hr New Bag 01/05/2022 9:42 AM CDT 80 mL/hr 80 mL/hr sodium chloride 0.9 % injection 10 mL 10 mL, intravenous, As needed, line care , Starting on Elizabeth 01/05/22 at 0921, Pre-Op, Peripheral Intravenous Catheter and Rapid Infusion Cat heter, prior to blood sampling, post blood transfusion or post blood samplin g sodium chloride 0.9 % injection 3 mL 3 mL, intravenous, As needed, line care, Starting on Elizabeth 01/05/22 at 0921, Pre-Op, Prior to and following infusion and betw een multiple consecutive infusions: sodium chloride 0.9 % injection sodium chloride 0.9 % injection 3 mL 3 mL, intravenous, Every 12 hours scheduled, First dos e on Elizabeth 01/05/22 at 2100, Pre-Op, Peripheral Intravenous Catheter and Rapid Infu mario alberto Catheter, when no infusion to maintain patency documented in this encounter Active and Recently Administered Medications Times are shown in CDT. Scheduled Medication Order 01/03/2022 01/04/2022 01/05/2022 acetaminophen tablet 1,000 mg (TYLENOL) (COMPLETED) 0938 (Given - Provider: Юлия Blood R.N.) 1,000 mg, oral, Once, On Elizabeth 01/05/22 at 0930, For 1 dose, Pre-Op ceFAZolin injection 2 g (ANCEF) (COMPLETED) 1011 (Given - Provider: Mina Ordoñez APRN, CRNA) 2 g, intravenous, Once, On Elizabeth 01/05/22 a t 0900, For 1 dose, Intra-Op, If needed, reconstitute vial per package insert instructions. See IVAG for administration guidelines. , [facility] medication dosing base d on indication and drug clearance factors., Indications: Prophylaxis, surgical hydrocortisone sodium succinate (PF) injection 100 mg (Solu-GILDARDO EF) 0845 (Due) 100 mg, intravenous, Once, On Elizabeth 2 at 0845, For 1 dose, IV push over 30 seconds per 100 mg (For doses 500 mg or less) sodium chloride 0.9 % injection 3 mL 3 mL, intravenous, Every 12 hours schedu led, First dose on Elizabeth 01/05/22 at 2100, Pre-Op, Peripheral Intravenous Catheter and Rapid Infusion Catheter, when no infusion to maintain patency sodium chloride 0.9 % injection 3 mL 3 mL, intravenous, Every 12 hours schedu led, First dose on Elizabeth 01/05/22 at 2100, Pre-Op, Peripheral Intravenous Catheter and Rapid Infusion Catheter, when no infusion to maintain patency sodium chloride 0.9 % injection 3 mL 3 mL, intravenous, Every 12 hours schedu led, First dose on Elizabeth 01/05/22 at 2100, Pre-Op, Peripheral Intravenous Catheter and Rapid Infusion Catheter, when no infusion to maintain patency Continuous Medication Order 01/03/2022 01/04/2022 01/05/2022 lactated ringers 0940 (Not Given - Provider: Юлия Blood, RRalf - Reason: Other - Comment: duplicate) 80 mL/hr, intravenous, Continuous, Starting on Elizabeth 01/05/22 at 09 30, Pre-Op lactated ringers 0942 (New Bag - Provider: Юлия Blood, R.N.)0950 (New Bag - Provider: Mnia Ordoñez APRN, CRNA)1013 (Paused - Provider: Mina Ordoñez APRN, CRNA - Comment: Switch to gravity)1014 (Restarted - Provider: Mina Ordoñez APRN, CRNA) 80 mL/hr, intravenous, Continuous, Starting on Elizabeth 01/05/22 at 09 30 1045 (Anesthesia Volume Adjustment - Provider: Mina Ordoñez APRN, DUST CONTROL ENGINEER)1150 (Stopped - Provider: Юлия Blood R.N.) PRN Medication Order 01/03/2022 01/04/2022 01/05/2022 fentaNYL injection 25 mcg (SUBLIMAZE) 25 mcg, intravenous, Every 2 min PRN, mo derate pain or score 4-6 of 10, severe pain or score 7-10 of 10, Starting on Elizabeth 01/05/22 at 0921, Pre-Op, Up to maximum total dose of 200 mcg fentaNYL injection 25 mcg (SUBLIMAZE) 25 mcg, intravenous, Every 2 min PRN, mo derate pain or score 4-6 of 10, severe pain or score 7-10 of 10, Starting on Elizabeth 01/05/22 at 0939, PACU (only), Up to maximum total dose of 200 mcg granisetron (PF) injection 1 mg (KYTRIL) 1 mg, intravenous, Once as needed, nause a, vomiting, Starting on Elizabeth 01/05/22 at 0921, For 1 dose, Pre-Op iohexoL 300 mg iodine/mL solution (OMNIPAQUE) (CANCELED) 1036 (Given - Provider: Tanvir Avendano M.D.) As needed, Starting on Elizabeth 01/05/22 at 1036, Intra-Op oxybutynin tablet 5 mg (DITROPAN) 5 mg, oral, Once as needed, If patient i s not required to void prior to dismissal, Starting on Elizabeth 01/05/22 at 0939, For 1 dose, PACU (only) sodium chloride 0.9 % injection 10 mL 10 mL, intravenous, As needed, line care , Starting on Elizabeth 01/05/22 at 0921, Pre- Op, Peripheral Intravenous Catheter and Rapid Infusion Catheter, prior to blood sampling, post blood transfusion or post blood sampling sodium chloride 0.9 % injection 10 mL 10 mL, intravenous, As needed, line care , Starting on Elizabeth 01/05/22 at 0921, Pre- Op, Peripheral Intravenous Catheter and Rapid Infusion Catheter, prior to blood sampling, post blood transfusion or post blood sampling sodium chloride 0.9 % injection 10 mL 10 mL, intravenous, As needed, line care , Starting on Elizabeth 01/05/22 at 0921, Pre- Op, Peripheral Intravenous Catheter and Rapid Infusion Catheter, prior to blood sampling, post blood transfusion or post blood sampling sodium chloride 0.9 % injection 3 mL 3 mL, intravenous, As needed, line care, Starting on Elizabeth 01/05/22 at 0921, Pre- Op, Prior to and following infusion and between multiple consecutive infusions: sodium chloride 0.9 % injection sodium chloride 0.9 % injection 3 mL 3 mL, intravenous, As needed, line care, Starting on Elizabeth 01/05/22 at 0921, Pre- Op, Prior to and following infusion and between multiple consecutive infusions: sodium chloride 0.9 % injection sodium chloride 0.9 % injection 3 mL 3 mL, intravenous, As needed, line care, Starting on Elizabeth 01/05/22 at 0921, Pre- Op, Prior to and following infusion and between multiple consecutive infusions: sodium chloride 0.9 % injection documented in this encounter Additional Health Concerns Assessment Noted Time PHQ-9 Depression Total Score: 3 04/07/2021 9:37 AM CDT documented as of this encounter Care Teams Cylinder Dyer Relationship Specialty Start Date End Date Elsewhere, Pcp PCP - General 09/17/19 documented as of this encounter
--- OUTSIDE RECORDS SUMMARY | 2022-05-25 13:04 | XMS_ITS | Encounter Summary ---
:1960 Author Organization [facility] Address [address] [place] [address] Care Team Providers Name Role Phone Elsewhere, Pcp Primary Care Provider Unavailable Reason for Visit Outpatient (Routine) - Closed Specialty Diagnoses / Procedures Referred By Contact Refer red To Contact Urology Diagnoses Ureteral Stent Exchange Ayanna Hooker M.D., [employer] [address] [place] [phone] Referral ID Status Reason Start Date Expiration Date Visits Requ ested Visits Authorized [id number] Closed 11/23/2021 11/23/2022 1 1 Encounter Details Date Type Department Care Team Description 12/27/2021 Office Visit Department of Urology Geraldo Spear eteral Stent in Catrachita Hernandez M.D. [address] 200 [place] [phone] Social History Tobacco Use Types Packs/Day Years [...] How often do you attend amish or nondenominational 1 to 4 times per year 12/23/2021 [...] documented as of this encounter Progress Notes Tanvir Young M.D. - 12/27/2021 4:00 PM CDT CHIEF COMPLAINT: Ureteral obstruction Stent exchange ?? HISTORY OF PRESENT ILLNESS Ms. Wray is a 61 y.o. female from [place], [place] scheduled to undergo right ureteral stent exchange on 01/05/22. ??She underwent cadaveric renal transplant in 2007 at the [facility] due to hypertensive nephrosclerosis. 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 ??She remains on dialysis. ??She has been doing well since her last visit. ??She denies any gross hematuria, dysuria, abdominal or flank pain. ?? She states the stent is at the right length and is not bothersome to her. ?? Her stent was last exchanged on 4/29/21 with a 8 Fr x 20 cm Imajin stent Answers for HPI/ROS submitted by the patient on 12/23/2021 Fatigue: Yes Weight gain of more than 10 pounds: Yes Loss of appetite: Yes Night sweats: Yes Visual problems: Yes No ENT issues: Yes No heart issues: Yes Shortness of breath: Yes Abdominal (belly) pain or cramping: Yes Pain or stiffness in the joints: Yes Change in mole or skin spot: Yes Numbness or shooting pain in hands, arms, legs or feet: Yes Loud snoring: Yes Stop breathing, choking, or gasping while asleep: Yes Feeling nervous, anxious or on edge: Yes Bruises/bleeds easily: Yes Difficulty urinating: Yes PMHx: Neuropathic pain, renal failure status post renal transplant 2007, MIRANDA, HTN Numerous prior cystoscopy and stent exchanges ASSESSMENT/PLAN #1 Ureteral obstruction of transplant ureter #2??Status post renal transplantUreteral stent exchange ?? I discussed with the patient stent exchange. I reviewed the alternatives, risks, and benefits of this procedure including bleeding, infection, perforation of the ureter. I explained the concern that her stent has been in for 1 year, and additional procedures and return trips to the OR may be needed tocompletely remove her stent if it is severely encrusted. We discussed the possibility of laser lithotripsy on the distal curl, if the more proximal curl cannot be reached in retrograde fashion she may require percutaneous access at some point in the future. ?? We discussed the following instructions: (1) Confirm surgical date (2) Fasting after midnight exceptfor sips of water with medication up until two hours prior to the procedure; (3) will have to be accompanied to and from the Procedure Center by a responsible adult; (4) Call in the night before surgery to obtain his report time. Surgical informed consent was signed. UCx given today She will meet with anesthesia and have her COVID testing on 01/03/2022 documented in this encounter Plan of Treatment Upcoming Encounters Date Type Specialty Care Team Description 06/01/2022 Telemedicine Pharmacy An Nicholas, CHRISTOPHER, C.N.P., D.N.P., M.S.N. [address] [place] [phone] (Wo rk) 07/31/2022 Lab Laboratory Medicine Tony Rubalcava M. B., Sydnie, MDebra [address] [place] [phone] (Wo rk) 07/31/2022 Lab Laboratory Medicine Tony Rubalcava M. B., Sydnie, MDebra [address] [place] [address] [phone] (Wo rk) 07/31/2022 Office Visit Transplant Tony Rubalcava M.B., Sydnie, MDebra [address] [place] [address] [phone] (Wo rk) 07/31/2022 Appointment Radiology Tony Rubalcava M.B., ChBur[place], MDebra [address] [place] [address] [phone] (Wo rk) 08/01/2022 Office Visit Transplant Tony Rubalcava M.B., Ch[place], M.D. [address] [place] [address] [phone] (Wo rk) 08/01/2022 Clinical Support Transplant Tony Rubalcava M.B., Ch[place], M.D. [address] [place] [address] [phone] (Wo rk) documented as of this encounter Visit Diagnoses Diagnosis Ureteral Stent Exchange documented in this encounter Additional Health Concerns Assessment Noted Time PHQ-9 Depression Total Score: 3 04/07/2021 9:37 AM CDT documented as of this encounter Care Teams Heart Coordinator Relationship Specialty Start Date End Date Elsewhere, Pcp PCP - General 09/17/19 documented as of this encounter
--- OUTSIDE RECORDS SUMMARY | 2022-05-25 13:04 | XMS_ITS | Encounter Summary ---
:1960 Author Organization [facility] Address [address] [place] [address] Care Team Providers Name Role Phone Elsewhere, Pcp Primary Care Provider Unavailable Encounter Details Date Type Department Care Team Description 01/05/2022 Anesthesia Event Outpatient Procedure Bettina House APRN, YOLANDA MATIAS [address] [place] [phone] [place] in [place], Finn Knight Jr., M.D. [address] [place] [phone] [place] [address] [place] [phone] Anesthesia Record Procedure Summary Procedure Name Responsible Anesthesia Start Anesthesia Stop Time Anesthesiologist Time EXCHANGE URETERAL Bettina House APRN, 01/05/22 0950 12/18 05/11 1053 STENT (Right) YOLANDA MATIAS Events Date Time Event Comment 01/05/2022 0950 An Start Machine/Equipmen t Checked Infection Precautions Foll owed Procedure/Site Verified NPO Sta tus Verified Supine Standard ASA Mon itors Applied 0958 An Induction 1000 An Intubation 1001 Turnover to Proceduralist 1029 Proc Start 1041 Proc Fin 1045 Turnover to ANE Staff 1048 Airway Removal Criteria Met 1048 Extubation/Airway Removed 1049 an stop data 1053 An End I completed my h andoff to the receiving staff during [facility] we 1. Identified the patient 2. [...] mcg/mL 150 mcg lidocaine 2% (mg) injection 80 mg propofol 10 mg/mL 140 mg propofol 10 mg/mL infusion 410.59 mg ePHEDrine PF 5 mg/mL syringe injection 10 mg ondansetron 4 mg/2 mL injection 4 mg ceFAZolin injection 2 g (ANCEF) 2 g dexamethasone 4 mg/mL injection 8 mg lactated ringers 135.67 mL Agents No agents on file. Blood No blood administrations on file. Lines, Drains, and Airways Type Details Placement Removal Hemodialysis AV Access Placement Date: 05/06/19 05/06/19 0000 by (present upon arrival to Xin Proctor, pacu) R.N. Ureteral Drain/Stent 09/16/19; 1700; Right; 09/16/19 1700 by Other (Comment) Soraya Garcia, (Internal) R.N. Percutaneous Access 12/23/20; 08; 12/23/20 0819 by Site Temporary (non-tunneled, Cesar [...] 04/07/22 0000 by 05/06/19; Removal Date: Harini Lim, Joshua Patel, 04/07/22 (duplicate LDA) R.N. R.N. Puncture 12/10/20; 1512; No; 12/10/20 1512 by 04/07/22 00 00 by Neck; Left; 04/07/22 Radha Landin Sackett, Colin J, R.N. R.N. Peripheral IV Placement Date: 01/18/21 1349 by 02/14/22 0000 b y 01/18/21; Placement Raquel Mcguire Deann P, Time: 1349; Catheter R.N. Size: 20 G; Orientation: Left; Location: Hand; Site Prep: Chlorhexidine (Preferred); Technique: Anatomical landmarks; Inserted by: ARF; Insertion Attempts: 1; Removal Date: 02/14/22 (not present today) Peripheral IV Placement Date: 01/05/22 0940 by 01/05/22 1207 b y 01/05/22; Placement Юлия Blood, RDaivNЮлия Hopkins, Time: 0940; Catheter R.N. Size: 22 G; Orientation: Anterior, Distal, Left, Lower; Location: Forearm; Site Prep: Chlorhexidine (Preferred); Technique: Anatomical landmarks; Removal Date: 01/05/22; Removal Time: 1207; Removal Reason: Patient discharged Supraglottic Airway Placement Date: 01/05/22 1000 by 01/05/22 10 48 by 01/05/22; Placement Mina Ordoñez Maiers, Th omas A, Time: 1000 (created via FLORENCIO WHITE APRN, CR NA procedure documentation); Mask Ventilation: Easy mask; Removal Date: 01/05/22; Removal Time: 1048 documented in this encounter Social History Tobacco [...] 12/23/2021 relatives? How often do you attend methodist or latter day 1 to 4 times per year 12/23/2021 services? Do you belong to any clubs or organizations such No 12/23/2021 as methodist groups, unions, fraternal or athletic groups, or [...] encounter OR Notes Anesthesia Postprocedure Evaluation - Mina Ordoñez APRN, CRNA - 01/05/2022 10:55 AM CDT Patient: Shabnam Wray Procedure Summary Date: 01/05/22 Room / Location: [place] [address] [place] [address] / [facility] in [place], [place] Anesthesia Start: 50 Anesthesia Stop: 105 Procedure: EXCHANGE URETERAL STENT (Right ) Diagnosis: Ureteral Stent Exchange (Right ureteral stent exchange.) Surgeons: Geraldo Spear M.D. Responsible Provider: Bettina House APRN, CRNA Anesthesia Type: general ASA Status: 3 Anesthesia Type: general Last vitals Vitals Value Taken Time BP Temp Pulse 79 01/05/22 1054 Resp 13 01/05/22 1054 SpO2 93 % 01/05/22 1054 Vitals shown include unvalidated device data. Please [...] Hydration status: euvolemic Anesthesia Procedure Notes - Mina Ordoñez APRN, CRNA - 01/05/2022 10:18 AM CDTAssociated Order(s): Airway Airway Date/Time: 01/05/2022 10:00 AM Performed by: Mina Ordoñez APRN, CRNA Authorized by: Bettina House APRN, CRNA Patient location during procedure: OR / Procedure Area PROCEDURE DETAILS: Mask difficulty assessment: easy mask Final airway type: supraglottic airway Laryngeal Manipulation: no Supraglottic device: LMA unique Supraglottic device size: 4 Adult device size: 4 Number of attempt to successful placement: 1 Airway confirmation: bilateral breath sounds, positive ETCO2 and bilateral chest rise Other previous techniques attempted: none PRE PROCEDURE DETAILS: Pre evaluation for airway management: procedure Urgency: elective Preop assessment of probable difficulty: no difficulty anticipated Preoxygenation: bag valve mask SEDATION / ANESTHESIA Anesthesia method: anesthesia POST PROCEDURE DETAILS: Procedure outcome: successful Airway event: no complications Anesthesia Preprocedure Evaluation - Finn Knight Jr., M.D. - 01/05/2022 8:56 AM CDT Preprocedure Anesthesia & H&P Assessment Procedure Summary Date/Time: 01/05/22 0945 Procedure: EXCHANGE URETERAL STENT, PROCEED INDICATED, POSSIBLE LASER LITHOTRIPSY IF STENT ENCRUSTED. (Right ) Diagnosis: Ureteral Stent Exchange [Z46.6] Pre-op diagnosis: Right ureteral stent exchange. Location: [place] [address] / [facility] in [place], [place] Surgeons: Geraldo Spear M.D. Pertinent components of the patient's history [...] Cardiovascular Assessment: cardiovascular normal Pulmonary Pulmonary Assessment: Clear General / Constitutional Constitutional Assessment: Overweight General State of Health:: calm ASSESSMENT / PLAN ANESTHESIA PLAN ASA: 3 Anesthesia Plan: general Patient seen and allergies reviewed, anesthesia plan and risks discussed directly with patient /legal guardian or through an manager philosophy. The use of blood products not discussed Approval to Proceed: approved for anesthesia documented in this encounter Plan of Treatment Upcoming Encounters Date Type Specialty Care Team Description 06/01/2022 Telemedicine Pharmacy An Nicholas APRN, C.N.P., D.N.P., M.S.N. [address] [place] [phone] (Wo rk) 07/31/2022 Lab Laboratory Medicine Tony Rubalcava M. B., Sydnie, Mukund [address] [place] [phone] (Wo rk) 07/31/2022 Lab Laboratory Medicine Tony Rubalcava M. B., Sydnie, Mukund [address] [place] [phone] (Wo rk) 07/31/2022 Office Visit Transplant Tony Rubalcava M.B., Sydnie, Mukund [address] [place] [phone] (Wo rk) 07/31/2022 Appointment Radiology Tony Rubalcava M.B., Sydnie, Mukund [address] [place] [phone] (Wo rk) 08/01/2022 Office Visit Transplant Tony Rubalcava M.B., Sydnie, Mukund [address] [place] [phone] (Wo rk) 08/01/2022 Clinical Support Transplant Tony Rubalcava M.B., Sydnie, [place] [address] [place] [phone] (Wo rk) documented as of this encounter Procedures Procedure Name Priority Date/Time Associated Diagnosis Comme nts LDA ANE Routine 01/05/2022 10:00 AM Results for this NON-SURGICAL AIRWAY CDT procedur e are in the results section. documented in this encounter Results LDA ANE NON-SURGICAL AIRWAY (01/05/2022 10:00 AM CDT) Narrative Mina Ordoñez APRN, CRNA - 10:00 AM CDT Mina Ordoñez APRN, CRNA ? 01/05/2022 10:18 AM Airway Date/Time: 01/05/2022 10:00 AM Performed by: Mina Ordoñez APRN, CR NA Authorized by: Bettina House APRN, CRNA Patient location during procedure: OR / Procedure Area PROCEDURE DETAILS: Mask difficulty assessment: easy mask Final airway type: supraglottic airway Laryngeal Manipulation: no ?? Supraglottic device: LMA unique ?? Supraglottic device size: 4 ?? Adult device size: 4 Number of attempt to successful placemen t: [...] outcome: successful ?? Airway event: no complications Bettina House APRN, CRNA, DNAP ANESTHESIA ORDERABL ES documented in this encounter Visit Diagnoses Not on filedocumented in this encounter Administered Medications Inactive Administered Medications - up to 3 most recent administrations Medication Order MAR Action Action Date Dose Rate Site ceFAZolin injection 2 g (ANCEF) Given 01/05/2022 10:11 AM CDT 2 g 2 g, intravenous, Once, On Elizabeth 01/05/22 at 0900, For 1 dose, Intra-Op, If needed, reconstitute vial per package insert instructions. See IVAG for administration guidelines. , Drug Monitoring Program: Pharmacist to adjust medication dosing based on indication and drug clearance factors., Indications: Prophylaxis, surgical dexAMETHasone injection (DECADRON) Given 01/05/2022 10:09 AM CDT 8 mg intravenous, As needed, Starting on Elizabeth 01/05/22 at 1009, Anesthesia Intra-op ePHEDrine (PF) injection Given 01/05/2022 10:05 AM CDT 10 mg intravenous, As needed, Starting on Elizabeth 01/05/22 at 1005, Anesthesia Intra-op fentaNYL injection (SUBLIMAZE) Given 01/05/2022 9:58 AM CDT 100 mcg intravenous, As needed, Starting on Elizabeth 01/05/22 at 0955, Anesthesia Intra-op Given 01/05/2022 9:55 AM CDT 50 mcg lactated ringers Restarted 01/05/2022 10:14 AM CDT 80 mL/hr, intravenous, Continuous, Starting on Elizabeth 01/05/22 at 0930 New Bag 01/05/2022 9:50 AM CDT 20 mL/hr New Bag 01/05/2022 9:42 AM CDT 80 mL/hr 80 mL/hr lidocaine (PF) (cardiac) injection Given 01/05/2022 9:57 AM CDT 80 mg intravenous, As needed, Starting on Elizabeth 01/05/22 at 0957, Anesthesia Intra-op ondansetron (PF) injection (ZOFRAN) Given 01/05/2022 10:19 AM CDT 4 mg intravenous, As needed, Starting on Elizabeth 01/05/22 at 1019, Anesthesia Intra-op propofol 10 mg/mL infusion Rate/Dose 01/05/2022 50 mcg/kg/min 29.97 (DIPRIVAN) Change 10:41 AM CDT mL/hr intravenous, Continuous Infusion: Per Instructions PRN, Starting on Elizabeth 01/05/22 at 0958, Anesthesia Intra-op Rate/Dose Change 01/05/2022 10:35 AM CDT 60 mcg/kg/min 35.964 mL/hr New Bag 01/05/2022 9:58 AM CDT 100 mcg/kg/min 59.94 mL/hr propofoL injection (DIPRIVAN) Given 01/05/2022 9:58 AM CDT 140 mg intravenous, As needed, Starting on Elizabeth 01/05/22 at 0958, Anesthesia Intra-op documented in this encounter Additional Health Concerns Assessment Noted Time PHQ-9 Depression Total Score: 3 04/07/2021 9:37 AM CDT documented as of this encounter Care Teams Managed Care Analyst Relationship Specialty Start Date End Date Elsewhere, Pcp PCP - General 09/17/19 documented as of this encounter
--- OUTSIDE RECORDS SUMMARY | 2022-05-25 13:04 | XMS_ITS | Encounter Summary ---
:1960 Author Organization [facility] Address [address] [place] [address] Care Team Providers Name Role Phone Elsewhere, Pcp Primary Care Provider Unavailable Reason for Visit Outpatient (Routine) - Closed Specialty Diagnoses / Procedures Referred By Contact Refer red To Contact Dermatology Araceli Ross M.D. [facility] 200 [place] [address] Referral ID Status Reason Start Date Expiration Date Visits Requ ested Visits Authorized [id number] Closed 09/22/2021 09/22/2022 1 1 Encounter Details Date Type Department Care Team Description 12/27/2021 Comprehensive Visit Department of Ana Lilia Pandya atosis Seborrheic (Primary Dx); Dermatology in [facility] C.N.P., Screening Examination Skin Cancer; [facility] DN.P. Dermatoheliosis; [place] [address] [place] [address] Personal History Of Other Malignant Neop lasm Of Skin [address] [place] [phone] Social History Tobacco Use Types Packs/Day Years [...] How often do you attend baptist or mormonism 1 to 4 times per [...] AM CDT documented as of this encounter Consult Notes Ana Lilia Pandya APRN, C.N.P., M.S.N. - 12/27/2021 3:00 PM CDT REFERRED BY Araceli Ross M.D. CHIEF COMPLAINT/REASON FOR VISIT Immunosuppressed state HISTORY OF PRESENT ILLNESS Ms. Shabnam Wray is a pleasant 61 y.o. female who presents today for a full skin cancer screening examination. The patient has a history of a kidney transplant in 2007 and is on chronic immunosuppressive therapy with mycophenolate and tacrolimus. The patient has a dermatoligic history of nonmelan gavino skin cancer. The patient was last evaluated in June of 2021 at which time a biopsy from her left lateral heel revealed squamous cell carcinoma in situ and was subsequently treated with mohs micrographic surgery. Specific skin concerns today include: none. Allergies Allergen Reactions ??? Epoetin Rolando GI intolerance ERYTHROPOIETIN- vomiting ??? Latex Other (see comments) Eczema ??? Pain Medicine Other (see comments) Patient unsure of what medication it was. Had a pain med given intravenously and got very nauseous PAST DERMATOLOGIC HISTORY 1. Squamous cell carcinoma, left nasal bridge, 2020, s/p Mohs 2. Squamous cell carcinoma, left upper arm, s/p excision, 2020 3. Squamous cell carcinoma in situ, left lateral heel, 2020, s/p Mohs FAMILY DERMATOLOGIC HISTORY Negative for skin cancer PHYSICAL EXAM General: Awake, alert, in no acute distress, and with appropriate affect. Eyes: No scleral injection or icterus. No eyelid abnormalities. Lymph: No lower extremity edema. Skin: I have examined the scalp, face, neck, chest, abdomen, back, bilateral upper extremities, and bilateral lower extremities. Sierra skin type III. Evidence of dermatoheliosis in sun exposed areas. On the face, trunk and extremities are waxy flesh colored to brown stuck on appearing papules. On the trunk and extremities are red domed shaped papules. On the left lateral heel, nose, left arm are well healed surgical scars without evidence of repigmentation, nodularity, or tenderness. IMPRESSION/REPORT/PLAN #1 Skin cancer screening examination #2 History of nonmelanoma skin cancer #3 Immunosuppressed state Reviewed increased risk of skin cancer secondary to immunosuppression. Education provided regarding the warning signs and symptoms of skin cancer and sun protection. I would recommend a full skin cancer screening examination with an appropriately trained in 12 months. #4 Seborrheic keratosis #5 Engel angiomas The benign nature of the skin lesion(s) was discussed with the patient. No treatment is required. I recommend continued observation. Should symptoms or changes develop related to this condition, I would recommend a return visit for reassessment. PATIENT EDUCATION Ready to learn. No apparent learning barriers were identified. Learning preferences include listening. Explained diagnosis and treatment plan; patient/guardian of patient expressed understanding of thecontent. documented in this encounter Plan of Treatment Upcoming Encounters Date Type Specialty Care Team Description 06/01/2022 Telemedicine Pharmacy An Nicholas APRN, C.N.P., [place], M.S.N. [address] [place] [phone] (Wo rk) 07/31/2022 Lab Laboratory Medicine Tony Rubalcava M. B., [place], [place]und [address] [place] [phone] (Wo rk) 07/31/2022 Lab Laboratory Medicine Tony Rubalcava M. B., Sydnie, Mukund [address] [place] [phone] (Wo rk) 07/31/2022 Office Visit Transplant Tony Rubalcava M.B., Sydnie, Mukund [address] [place] [phone] (Wo rk) 07/31/2022 Appointment Radiology Tony Rubalcava M.B., Sydnie, Mukund [address] [place] [phone] (Wo rk) 08/01/2022 Office Visit Transplant Tony Rubalcava M.B., Sydnie, [place]und [address] [place] [phone] (Wo rk) 08/01/2022 Clinical Support Transplant Tony Rubalcava M.B., Sydnie, Mukund [address] [place] [phone] (Wo rk) documented as of this encounter Visit Diagnoses Diagnosis Keratosis Seborrheic - Primary Screening Examination Skin Cancer Dermatoheliosis Personal History Of Other Malignant Neop lasm Of Skin documented in this encounter Additional Health Concerns Assessment Noted Time PHQ-9 Depression Total Score: 3 04/07/2021 9:37 AM CDT documented as of this encounter Care Teams Perishable Freight Inspector Relationship Specialty Start Date End Date Elsewhere, Pcp PCP - General 09/17/19 documented as of this encounter
--- OUTSIDE RECORDS SUMMARY | 2022-05-25 13:04 | XMS_ITS | Encounter Summary ---
:1960 Author Organization [facility] Address [address] [place] [address] Care Team Providers Name Role Phone Elsewhere, Pcp Primary Care Provider Unavailable Encounter Details Date Type Department Care Team Description 12/12/2021 Orders Only Department of Wilberforce, Steve Hernia Abd ominal Wall (Primary Dx); Nephrology in Ezekiel Garcia D.O. Chronic Failure Renal End Stage Renal Di [facility] Dialysis Dependent (HCC); [place], [place] 200 [facility] Complication Kidney Transplant (HCC) [address] [place] [address] Social History Tobacco Use Types Packs/Day Years [...] 12/23/2021 relatives? How often do you attend orthodoxy or yazidi 1 to 4 times per year 12/23/2021 services? Do you belong to any clubs or organizations such No 12/23/2021 as orthodoxy groups, unions, fraternal or athletic groups, or [...] An Nicholas APRN C.N.P., D.N.P., M.S.N. [address] [place] [address] [phone] (Nicolas wen) 07/31/2022 Lab Laboratory Medicine Tony Rubalcava M. B., ChBurke, MElvia. [address] [place] [address] [phone] (Wo behzad) 07/31/2022 Lab Laboratory Medicine Tony Rubalcava M. B., ChDaviB., MElvia. [address] [place] [address] [phone] (Wo behzad) 07/31/2022 Office Visit Transplant Tony Rubalcava M.B., ChBurke, MElvia. [address] [place] [address] [phone] (Nicolas wen) 07/31/2022 Appointment Radiology Tony Rubalcava M.B., Mukund Otoole [address] [place] [address] [phone] (Wo rk) 08/01/2022 Office Visit Transplant Tony Rubalcava M.B., Sydnie, Mukund [address] [place] [address] [phone] (Wo rk) 08/01/2022 Clinical Support Transplant Tony Rubalcava M.B., Sydnie, Mukund [address] [place] [address] [phone] (Wo rk) documented as of this encounter Visit Diagnoses Diagnosis Hernia Abdominal Wall - Primary Chronic Failure Renal End Stage Renal Di sease Dialysis Dependent (HCC) Complication Kidney Transplant (HCC) documented in this encounter Additional Health Concerns Assessment Noted Time PHQ-9 Depression Total Score: 3 04/07/2021 9:37 AM CDT documented as of this encounter Care Teams Hand Slitter Relationship Specialty Start Date End Date Elsewhere, Pcp PCP - General 09/17/19 documented as of this encounter
--- OUTSIDE RECORDS SUMMARY | 2022-05-25 13:04 | XMS_ITS | Encounter Summary ---
:1960 Author Organization [facility] Address [address] [place] [address] Care Team Providers Name Role Phone Elsewhere, Pcp Primary Care Provider Unavailable Reason for Visit Reason Comments Med Refill Encounter Details Date Type Department Care Team Description 01/11/2022 Refill Division of Nephrology and Rachel Lu, Med Refill Hypertension in [facility].ADavi- [facility] [address] [facility] [address] [place] [address] [place] [address] [phone] Social History Tobacco Use Types Packs/Day Years Used Date Smoking Tobacco: Former Cigarettes 0.5 30 Star reebcca: 01/29/1975 Smokeless Tobacco: Never Alcohol Use Standard [...] How often do you attend zoroastrianism or episcopalian 1 to 4 times per [...] An Nicholas APRN, C.N.P., D.N.P., M.S.N. [address] [place] [address] [phone] (Nicolas wen) 07/31/2022 Lab Laboratory Medicine Tony Rubalcava M. B., ChBurke, M.D. [address] [place] [address] [phone] (Nicolas wen) 07/31/2022 Lab Laboratory Medicine Tony Rubalcava M. B., ChDaviBDavi, M.D. [address] [place] [address] [phone] (Nicolas wen) 07/31/2022 Office Visit Transplant Tony Rubalcava M.B., ChBurke, MElvia. [address] [place] [address] [phone] (Nicolas wen) 07/31/2022 Appointment Radiology Tony Rubalcava M.B., Mukund Otoole [address] [place] [address] [phone] (Wo rk) 08/01/2022 Office Visit Transplant Tony Rubalcava M.B., Mukund Otoole [address] [place] [address] [phone] (Wo rk) 08/01/2022 Clinical Support Transplant Tony Rubalcava M.B., Mukund Otoole [address] [place] [address] [phone] (Wo rk) documented as of this encounter Visit Diagnoses Not on filedocumented in this encounter Additional Health Concerns Assessment Noted Time PHQ-9 Depression Total Score: 3 04/07/2021 9:37 AM CDT documented as of this encounter Care Teams Course Developer Relationship Specialty Start Date End Date Elsewhere, Pcp PCP - General 09/17/19 documented as of this encounter
--- OUTSIDE RECORDS SUMMARY | 2022-05-25 13:04 | XMS_ITS | Encounter Summary ---
:1960 Author Organization [facility] Address [address] [place] [address] Care Team Providers Name Role Phone Elsewhere, Pcp Primary Care Provider Unavailable Encounter Details Date Type Department Care Team Description 01/03/2022 Hospital Encounter Department of Sigel, Ureteral Stent Exchange; Laboratory Medicine Franchesca Barron M.D. Chronic Kidney Disease and Pathology, [facility] in [place], [place] [address] [place] [address] Social History Tobacco Use Types Packs/Day Years [...] 12/23/2021 relatives? How often do you attend adventist or christianity 1 to 4 times per year 12/23/2021 services? Do you belong to any clubs or organizations such No 12/23/2021 as adventist groups, unions, fraternal or athletic groups, or [...] daily. 4.5 mg Sun-Sun-Sun, 4 mg other days documented as of this encounter Plan of Treatment Upcoming Encounters Date Type Specialty Care Team Description 06/01/2022 Telemedicine Pharmacy An Nicholas APRN, C.N.P., D.N.P., M.S.N. [address] [place] [address] 55 [phone] (Wo rk) 07/31/2022 Lab Laboratory Medicine Tony Rubalcava M. B., Ch.B., M.D. [address] [place] [address] [phone] (Wo rk) 07/31/2022 Lab Laboratory Medicine Tony Rubalcava M. B., Ch.B., M.D. [address] [place] [address] 55 [phone] (Wo rk) 07/31/2022 Office Visit Transplant Tony Rubalcava M.B., Sydnie, Mukund [address] [place] [address] 55 [phone] (Wo rk) 07/31/2022 Appointment Radiology Tony Rubalcava M.B., Mukund Otoole [address] [place] [address] 55 [phone] (Wo rk) 08/01/2022 Office Visit Transplant Tony Rubalcava M.B., Mukund Otoole [address] [place] [address] 55 [phone] (Wo rk) 08/01/2022 Clinical Support Transplant Tony Rubalcava M.B., Sydnie, Mukund [address] [place] [address] 55 [phone] (Wo rk) documented as of this encounter Procedures Procedure Name Priority Date/Time Associated Diagnosis Comme nts CBC WITH Routine 01/03/2022 2:34 PM Ureteral Stent Results for this DIFFERENTIAL, B CDT Exchange procedure are in Chronic Kidney the results Disease section. BASIC METABOLIC Routine 01/03/2022 2:34 PM Ureteral Stent Resu lts for this PANEL, S/P CDT Exchange procedure are i n the results section. documented in this encounter Results (ABNORMAL) Basic Metabolic Panel (01/03/2022 2:34 PM CDT) Analysis Performed At Patho logist Time Signature Potassium, S 5.2 3.6 - 5.2 01/03/2022 DTL mmol/L 3:29 PM CDT Sodium, S 139 135 - 145 01/03/2022 DTL mmol/L 3:29 PM CDT Chloride, S 99 98 - 107 01/03/2022 DTL mmol/L 3:29 PM CDT Bicarbonate, S 24 22 - 29 01/03/2022 DTL mmol/L 3:29 PM CDT Anion Gap 16 (H) 7 - 15 01/03/2022 DTL 3:29 PM CDT BUN (Blood Urea 43 (H) 6 - 21 01/03/2022 DTL Nitrogen), S mg/dL 3:29 PM CDT Creatinine 7.74 (H) 0.59 - 01/03/2022 DTL 1.04 mg/dL 3:29 PM CDT eGFR-Non <15 (L) >=60 01/03/2022 DTL Black/ mL/min/BSA 3:29 PM CDT Armenian Comment: ----ADDITIONAL INFORMATION---- Estimated GFR calculated using the 2009 CKD_EPI creatinine equation. eGFR-Black/ <15 (L) >=60 mL/min/BSA 2021 3:29 PM CDT DTL Comment: ----ADDITIONAL INFORMATION---- Estimated GFR calculated using the 2009 CKD_EPI creatinine equation. Calcium, Total, S 8.7 (L) 8.8 - 10.2 mg/dL 01/03/2022 3:29 PM CDT DTL Glucose, S 91 70 - 140 mg/dL 01/03/2022 3:29 PM CDT D TL Specimen Anatomical Collection Method Collection Time Receive d Time (Source) Location / / Volume Laterality Blood (Blood, 01/03/2022 2:34 PM 01/04/20 2:55 Venous) CDT PM CDT Franchesca Liu M.D. LAB BLOOD ADD-ON Performing Organization Address City/State/ZIP Code Phon e Number [facility] - [address] [place], [place] [address] [facility] [place] [address] [facility] [address] (ABNORMAL) CBC with Differential, Blood (01/03/2022 2:34 PM CDT) [facility] Method Time Signature Hemoglobin 12.9 11.6 - 01/03/2022 DTL 15.0 g/dL 3:16 PM CDT Hematocrit 42.1 35.5 - 01/03/2022 DTL 44.9 % 3:16 PM CDT Erythrocytes 4.53 3.92 - 01/03/2022 DTL 5.13 3:16 PM CDT x10(12)/L MCV 92.9 78.2 - 01/03/2022 DTL 97.9 fL 3:16 PM CDT RBC Distrib Width 13.9 12.2 - 01/03/2022 DTL 16.1 % 3:16 PM CDT Platelet Count 212 157 - 371 01/03/2022 DTL x10(9)/L 3:16 PM CDT Leukocytes 10.6 (H) 3.4 - 9.6 01/03/2022 DTL x10(9)/L 3:16 PM CDT Neutrophils 8.13 (H) 1.56 - 01/03/2022 DTL 6.45 3:16 PM CDT x10(9)/L Lymphocytes 1.31 0.95 - 01/03/2022 DTL 3.07 3:16 PM CDT x10(9)/L Monocytes 0.98 (H) 0.26 - 01/03/2022 DTL 0.81 3:16 PM CDT x10(9)/L Eosinophils 0.14 0.03 - 01/03/2022 DTL 0.48 3:16 PM CDT x10(9)/L Basophils 0.05 0.01 - 01/03/2022 DTL 0.08 3:16 PM CDT x10(9)/L Specimen Anatomical Collection Method Collection Time Receive d Time (Source) Location / / Volume Laterality Blood (Blood, 01/03/2022 2:34 PM 01/04/20 22 2:45 Venous) CDT PM CDT Franchesca Liu M.D. LAB BLOOD ADD-ON Performing Organization Address City/State/ZIP Code Phon e Number [facility] - [address] [place], [place] [address] [facility] [place] [address] [facility] [address] documented in this encounter Visit Diagnoses Diagnosis Ureteral Stent Exchange Chronic Kidney Disease documented in this encounter Additional Health Concerns Infection Onset Date Last Indicated Resolved Time COVID19 Pending 01/03/2022 01/03/2022 01/03/2022 5:33 PM CDT Assessment Noted Time PHQ-9 Depression Total Score: 3 04/07/2021 9:37 AM CDT documented as of this encounter Care Teams General Store Manager Relationship Specialty Start Date End Date Elsewhere, Pcp PCP - General 09/17/19 documented as of this encounter
--- OUTSIDE RECORDS SUMMARY | 2022-05-25 13:04 | XMS_ITS | Encounter Summary ---
:1960 Author Organization [facility] Address [address] [place] [address] Care Team Providers Name Role Phone Elsewhere, Pcp Primary Care Provider Unavailable Reason for Visit Reason Comments Med Refill Encounter Details Date Type Department Care Team Description 12/27/2021 Refill Division of Nephrology and Candelario, Josué Quiles PRN, Med Refill Hypertension in [facility] [address] [facility] [address] [place] [phone] (Wo rk) Social History Tobacco Use Types [...] 12/23/2021 relatives? How often do you attend yarsani or rastafarian 1 to 4 times per year 12/23/2021 services? Do you belong to any clubs or organizations such No 12/23/2021 as yarsani groups, unions, fraternal or athletic groups, or [...] Nicholas APRN, C.N.P., D.N.P., M.S.N. [address] [place] [address] 55 [phone] (Nicolas wen) 07/31/2022 Lab Laboratory Medicine Tony Rubalcava M. B., ChDaviBDavi, M.D. [address] [place] [address] 55 [phone] (Nicolas wen) 07/31/2022 Lab Laboratory Medicine Tony Rubalcava M. B., ChDaviBDavi, M.D. [address] [place] [address] [phone] (Nicolas wen) 07/31/2022 Office Visit Transplant Tony Rubalcava M.B., ChBurke, MElvia. [address] [place] [address] 55 [phone] (Nicolas wen) 07/31/2022 Appointment Radiology Tony Rubalcava M.B., Mukund Otoole [address] [place] [address] [phone] (Wo rk) 08/01/2022 Office Visit Transplant Tony Rubalcava M.B., Mukund Otoole [address] [place] [address] [phone] (Wo rk) 08/01/2022 Clinical Support Transplant Tony Rubalcava M.B., Mukund Otoole [address] [place] [address] [phone] (Wo behzad) documented as of this encounter Visit Diagnoses Not on filedocumented in this encounter Additional Health Concerns Assessment Noted Time PHQ-9 Depression Total Score: 3 04/07/2021 9:37 AM CDT documented as of this encounter Care Teams Aerospace Physiological Technician Relationship Specialty Start Date End Date Elsewhere, Pcp PCP - General 09/17/19 documented as of this encounter
--- OUTSIDE RECORDS SUMMARY | 2022-05-25 13:04 | XMS_ITS | Encounter Summary ---
:1960 Author Organization [facility] Address [address] [place] [address] Care Team Providers Name Role Phone Elsewhere, Pcp Primary Care Provider Unavailable Encounter Details Date Type Department Care Team Description 12/09/2021 Hospital Encounter Department of GuilhermeTwin lowery Chro nic Kidney Disease; Laboratory Medicine M.D. Pretransplant Recipient Evaluation Exam and Pathology, [address] [place] [address] in [facility] [phone] [place] [phone] [place] [address] (Work) [place], [place] [phone] (Fax) [phone] Social History Tobacco Use Types Packs/Day Years [...] How often do you attend zoroastrianism or yazidism 1 to 4 times per [...] 021 12/30/2021 5 mg tablet MOUTH DAILY sertraline (ZOLOFT) [...] An Nicholas APRN, C.N.P., D.N.P., M.S.N. [address] [place] [address] [phone] (Wo rk) 07/31/2022 Lab Laboratory Medicine Tony Rubalcava M. B., Ch.B., M.D. [address] [place] [address] [phone] (Wo rk) 07/31/2022 Lab Laboratory Medicine Tony Rubalcava M. B., Ch.B., M.D. [address] [place] [address] 55 [phone] (Wo rk) 07/31/2022 Office Visit Transplant Tony Rubalcava M.B., Sydnie, Mukund [address] [place] [address] [phone] (Wo rk) 07/31/2022 Appointment Radiology Tony Rubalcava M.B., Mukund Otoole [address] [place] [address] [phone] (Wo rk) 08/01/2022 Office Visit Transplant Tony Rubalcava M.B., Sydnie, Mukund [address] [place] [address] [phone] (Wo rk) 08/01/2022 Clinical Support Transplant Tony Rubalcava M.B., Sydnie, Mukund [address] [place] [address] [phone] (Wo rk) documented as of this encounter Procedures Procedure Name Priority Date/Time Associated Diagnosis Comme nts HLA CLASS II SAB Routine 12/19/2021 5:15 AM Chronic Kidney Res ults for this ANTIBODY SCREEN CDT Disease procedure are in Pretransplant the results Recipient Evaluation section . Exam HLA CLASS I SAB Routine 12/19/2021 5:15 AM Chronic Kidney Resu lts for this ANTIBODY SCREEN CDT Disease procedure are in Pretransplant the results Recipient Evaluation section . Exam documented in this encounter Results HLA Class II SAB Antibody Screen (12/19/2021 5:15 AM CDT) [facility] Method Time Signature Class II SAB Positive Not Applicable 12/22/2021 DBB8 Overall 9:48 AM CDT Result Class II SAB 37 12/22/2021 DBB8 cPRA 9:48 AM CDT Comment: ----ADDITIONAL INFORMATION---- cPRA is calculated for either HLA class I or II (except DPB1) antibodies with a normalized MFI >2000 u sing published UNOS frequencies (http://optn.transplant.hrsa .gov). ??For convenience, all HLA antibodies with a normalized MFI >500 are listed in the specificity wilde. SAB DRB1 Specificity NONE 12/22/2021 9:48 AM CDT DBB8 SAB [id number] Specificity NONE 12/22/2021 9:48 A M CDT DBB8 SAB DQB1 Specificity see below 12/22/2021 9:48 AM CDT DBB8 Comment: 2(A*05:01;B*02:01)[5707] Format: Serologic Eq.(DQA1;DQB1 Mol. All jorge)[Normalized MFI] NOTE: Data is displayed in descending or kristi by Mean Fluorescence Intensity (MFI). ??Serologic equivalents can be di splayed multiple times for different molecular alleles. SAB DPB1 Specificity NONE 12/22/2021 9:48 AM CDT DBB8 Comment: ----ADDITIONAL INFORMATION---- Method: Luminex Flow Cytometry CLIA: [id number] ??CLIA Cigar Tobacco Rehandler: SHANTA LOYD MD,PhD Specimen Anatomical Collection Method Collection Time Receive d Time (Source) Location / / Volume Laterality Blood (Blood, 12/19/2021 5:15 AM 12/21/19 1:44 Venous) CDT PM CDT Twin Vanegas M.D. LAB HLA ORDERABLES Performing Organization Address City/State/ZIP Code Phon e Number [facility] - [facility] [address] [place], [place] [address] [facility] [address]BB8 [place] [address] [facility] [address] HLA Class I SAB Antibody Screen (12/19/2021 5:15 AM CDT) [facility] Method Time Signature Class I SAB Positive Not Applicable 12/22/2021 DBB8 Overall 9:48 AM CDT Result Class I SAB 13 12/22/2021 DBB8 cPRA 9:48 AM CDT Comment: ----ADDITIONAL INFORMATION---- cPRA is calculated for either HLA class I or II (except DPB1) antibodies with a normalized MFI >2000 u sing published UNOS frequencies (http://optn.transplant.hrsa .gov). ??For convenience, all HLA antibodies with a normalized MFI >500 are listed in the specificity wilde. SAB A Specificity see below 12/22/2021 9:48 AM CDT DBB8 Comment: 32(32:01)[1711], 31(31:01)[1051], 25(25: 01)[1025], 30(30:01)[993], 24(24:03)[940], 23(23:01 )[843], 24(24:02)[742] Format: Serologic Eq.(A Mol. Allele)[Nor malized MFI] NOTE: Data is displayed in descending or kristi by Mean Fluorescence Intensity (MFI). ??Serologic equivalents can be di splayed multiple times for different molecular alleles. SAB B Specificity see below 12/22/2021 9:48 AM CDT DBB8 Comment: 51(51:01)[4721], 49(49:01)[2600], 51(51: 02)[2240], 78(78:01)[1814], 67(67:01)[1742], 38(38: 01)[1713], 59(59:01)[1633], 63(15:16)[1550], 52(52: 01)[1406], 75(15:02)[1343], 77(15:13)[1235], 57(57: 01)[1108], 53(53:01)[1053], 57(57:03)[954], 58(58:0 1)[817] Format: Serologic Eq.(B Mol. Allele)[Nor malized MFI] NOTE: Data is displayed in descending or kristi by Mean Fluorescence Intensity (MFI). ??Serologic equivalents can be di splayed multiple times for different molecular alleles. SAB C Specificity NONE 12/22/2021 9:48 AM CDT DBB8 Comment: ----ADDITIONAL INFORMATION---- Method: Luminex Flow Cytometry CLIA: [id number] ??CLIA Cigar Tobacco Rehandler: SHANTA LOYD MD,PhD Specimen Anatomical Collection Method Collection Time Receive d Time (Source) Location / / Volume Laterality Blood (Blood, 12/19/2021 5:15 AM 12/21/19 22 1:44 Venous) CDT PM CDT Twin Vanegas M.D. LAB HLA ORDERABLES Performing Organization Address City/State/ZIP Code Phon e Number [facility] - [address] [place], [place] [address] [facility] DBB8 [place] [address] [facility] [address] documented in this encounter Visit Diagnoses Diagnosis Chronic Kidney Disease Pretransplant Recipient Evaluation Exam documented in this encounter Additional Health Concerns Assessment Noted Time PHQ-9 Depression Total Score: 3 04/07/2021 9:37 AM CDT documented as of this encounter Care Teams Academic Affairs Assistant Relationship Specialty Start Date End Date Elsewhere, Pcp PCP - General 09/17/19 documented as of this encounter
--- OUTSIDE RECORDS SUMMARY | 2022-05-25 13:04 | XMS_ITS | Encounter Summary ---
:1960 Author Organization [facility] Address [address] [place] [address] Care Team Providers Name Role Phone Elsewhere, Pcp Primary Care Provider Unavailable Encounter Details Date Type Department Care Team Description 12/12/2021 Orders Only Division of Nephrology and Neymar Martínez Hypertension in [place], ., D.O. [place] 200 [facility] 200 [place] [phone] (Wo rk) Social History Tobacco Use Types [...] 12/23/2021 relatives? How often do you attend faith or jehovah's witness 1 to 4 times per year 12/23/2021 services? Do you belong to any clubs or organizations such No 12/23/2021 as faith groups, unions, fraternal or athletic groups, or [...] An Nicholas APRN C.N.P., D.N.P., M.S.N. [address] [place] [address] [phone] (Wo rk) 07/31/2022 Lab Laboratory Medicine Tony Rubalcava M. B., Sydnie, MDebra [address] [place] [address] [phone] (Wo rk) 07/31/2022 Lab Laboratory Medicine Tony Rubalcava M. B., ChBurke, MDebra [address] [place] [address] [phone] (Wo rk) 07/31/2022 Office Visit Transplant Tony Rubalcava M.B., Sydnie, MDebra [address] [place] [address] [phone] (Wo rk) 07/31/2022 Appointment Radiology Tony Rubalcava M.B., Ch.Mukund Richards [address] [place] [address] [phone] (Wo rk) 08/01/2022 Office Visit Transplant Tony Rubalcava M.B., Mukund Otoole [address] [place] [address] [phone] (Wo rk) 08/01/2022 Clinical Support Transplant Tony Rubalcava M.B., Sydnie, Mukund [address] [place] [address] [phone] (Wo rk) documented as of this encounter Visit Diagnoses Not on filedocumented in this encounter Additional Health Concerns Assessment Noted Time PHQ-9 Depression Total Score: 3 04/07/2021 9:37 AM CDT documented as of this encounter Care Teams Camera Engineer Relationship Specialty Start Date End Date Elsewhere, Pcp PCP - General 09/17/19 documented as of this encounter
--- OUTSIDE RECORDS SUMMARY | 2022-05-25 13:04 | XMS_ITS | Encounter Summary ---
:1960 Author Organization [facility] Address [address] [place] [address] Care Team Providers Name Role Phone Elsewhere, Pcp Primary Care Provider Unavailable Reason for Visit Reason Comments Pre-op Exam Outpatient (Routine) - Closed Specialty Diagnoses / Procedures Referred By Contact Refer red To Contact Internal Medicine / Diagnoses [facility] [address] [place] [address] Referral ID Status Reason Start Date Expiration Date Visits Requ ested Visits Authorized [id number] Closed 12/01/2021 12/01/2022 1 1 Encounter Details Date Type Department Care Team Description 01/03/2022 Comprehensive Visit Division of General Geraldo Ordoñez M.D. [address] [place] [phone] Complication Dialysis Fistula Subsequent (Primary Dx); Internal Medicine Franchesca Liu M.D. Ureteral Stent Exchange; in [place], Chronic Kidney Disease ; [place] [facility] Arteriovenous Fist casi Initial (HCC); 200 [facility] [place] [phone] Social History Tobacco Use Types Packs/Day Years [...] How often do you attend presybeterian or zoroastrian 1 to 4 times per [...] Sign Reading Time Taken Comments Blood Pressure 156/81 01/03/2022 1:07 PM CDT Average Pulse 86 01/03/2022 1:07 PM CDT Temperature - - Respiratory Rate - - Oxygen Saturation - - Inhaled Oxygen Concentration - - Weight 99.9 kg (220 lb 3.8 oz) 01/03/2022 1:07 PM CDT Height 165.4 cm (5' 5.12) 01/03/2022 1:07 PM CDT Body Mass Index 36.52 01/03/2022 1:07 PM CDT documented in this encounter H&P Notes Adriana Leigh M.D. - 01/03/2022 1:30 PM CDT This is a supervisory note for Dr. Liu. I reviewed the medical history and physical exam findings, and I agree with the assessment and plan as documented in Dr. Liu's note from today. 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 Wray is a 61 yo woman with ESRD and a prior failed renal allograft, on hemodialysis, who presents for HOWIE prior to planned ureteral stent exchange. Overall, she has been feeling well without any acute concerns. No past history of anesthesia complications No prior history of CAD, heart failure, or stroke, and no current symptoms concerning for cardiac disease. A dobutamine stress echo in March 2021 was negative. Baseline echocardiogram was unremarkableapart from concentric left ventricular hypertrophy. Functional status is >4 METS without symptoms. RCRI is 1, May score calculates a 0.4% risk of perioperative myocardial infarction or cardiac arrest. She has a past smoking history, but quit a year ago. No history of COPD. Suspected sleep apnea with a STOP-BANG of 6, but no prior testing. She is at elevated risk for postprocedural pulmonary complications given this history. Recommend monitoring respiratory status in the PACU closely prior to discharge and avoiding overly sedating medications at home postoperatively to reduce risk. We obtained some labs today. Note mild leukocytosis. No signs or symptoms of active infection. No anemia. Potassium is 5.2. She will dialyze tomorrow, the day before the procedure. She has held her warfarin for stent exchanges in the past. INR at dialysis yesterday was 2.2. We have recommended that she hold her warfarin starting tonight. This can resumed the evening of the procedure if felt safe to do so per our Urology colleagues. She doesn't need bridging. Given her chronic prednisone use, we have also recommended a one time dose of 25 mg IV hydrocortisone for stress dose steroids preoperatively. Please see Dr. Liu's note for full details. documented in this encounter Consult Notes Franchesca Liu M.D. - 01/03/2022 1:30 PM CDT REFERRAL SOURCE Geraldo Spear M.D. HISTORY OF PRESENT ILLNESS Ms. Wray is scheduled for ureteral stent exchange and possible laser lithotripsy, for the condition of transplant ureteral stricture, with a planned date of surgery 01/05/2022. 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 This was last exchanged 12/16/2020 and is planning on undergoing an exchange this month. She has remained on dialysis. She last took her warfarin yesterday evening. She has her INR checked regularly at Dialysis at [facility]. Her INR was 2.2 on 01/02. She did not have her dosing changed at that time, but she says they usually want her between 2-3. Her periumbilical hernia she feels is getting a bit bigger and sometimes is sore. Denies history of obstruction. Denies cardiopulmonary symptoms including chest pain, palpitations, orthopnea, edema, dyspnea. She does have some exertional dyspnea that occurs with heavy house work after about 20 mins. 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 Improves with rest. ?? Revised [Mckoy] Cardiac Risk Index (RCRI) 1. Hx ischemic heart disease: no 2. Hx heart failure: no 3. Hx cerebrovascular disease (stroke or TIA): no 4. Diabetes requiring perioperative insulin use: no 5. CKD (stage 3 or creatinine >2.0) : yes 6. High-risk surgery type: no RCRI Score = 1.0% estimated risk of avelina-operative cardiac , non-fatal OR, or non-fatal cardiacarrest. ?? May Score?0.4% ?? CARDIOVASCULAR HISTORY ?Previous OR: no ?CABG: no ?Stress tests: yes, negative 03/2021 ?Echo data: 2019, mild diastolic LV dysfunction, no regionals, EF 66% ?Catheterization: no ?? PULMONARY HISTORY: ? Asthma/COPD: no ? MIRANDA: no Stop Bang Total Score: 6 ? PFTs: no ? Smoking history: prior 45 pack year smoking history, quit 2020 ?? ADDITIONAL RISK FACTORS: Medication allergies: Latex: eczema, epo: emesis; unknown pain med: nausea Problems with past anesthesia: no Difficulty with past intubation: no Personal/??family history DVT/PE: recurrent AV fistula thromboses, chronic R IJ thrombus Anticoagulation: On warfarin Bleeding: easy bruising Renal insufficiency: On dialysis Liver disease or cirrhosis: none Bloodborne infectious history: none Stroke or seizure history: no Steroids: prednisone 5mg Appliances or implants: ureteral stent Alcohol/drug??dependence: none OBJECTIVE VITAL SIGNS Blood Pressure: 156/81 Height: 165.4 cm Weight: 99.9 kg BMI (Calculated): 36.5 kg/m?? PHYSICAL EXAMINATION General: Healthy well-appearing, in no acute distress. ENT: Mallampati I. Oral mucosa without lesions. Heart: Regular rate and rhythm. Systolic murmur noted. Lungs: Clear to auscultation bilaterally. Abdomen: Soft, nontender, nondistended. No pain with palpation. Normal bowel sounds. No hepatosplenomegaly noted. Periumbilical hernia present, soft and reducible. Extremities: No clubbing, cyanosis, or edema. Psych: Oriented, answering questions appropriately. Normal affect. Gait: Normal gait. Neuro: Grossly normal. Strength 2+ and symmetric. Skin: thin skin, bruising noted bilateral upper extremities IMPRESSION/REPORT/PLAN #1 Ureteral Stent Exchange Ms. Wray is a 61yo female scheduled for ureteral stent exchange and possible laser lithotripsy,for the condition of transplant ureteral stricture, with a planned date of surgery 01/05/2022. 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 Patient is medically optimized for surgery at this time, although noting risk for cardiac, pulmonary, venous thromboembolism, renal, infection, and delirium risk. ??These risks were discussed in detail with the patient, and the patient expressed understanding. 2. Will hold warfarin tonight and tomorrow. Ordered INR check for tomorrow at dialysis, and she willcall Urology with the result tomorrow. 3. Recommend anesthesia give one-time dose of 25mg IV hydrocortisone for stress dose steroids in setting of long-term prednisone use ?? 4. Medications: -HOLD now: warfarin, no need for bridging -HOLD on the morning of surgery: sevelamer -CONTINUE through surgery: all other home medications 5. ??VTE Risk: high risk for thrombus, recommend early ambulation and mechanical prophylaxis with re-initiation of warfarin as soon as able ?? 5. Pulmonary Risk/MIRANDA: ??Elevated given smoking history and MIRANDA, but has previously tolerated anesthesia well. Consider having CPAP available and monitoring closely post-operatively. 6. Renal: Will order BMP and CBC given ESRD to have baselines available in case of any complicationsduring surgery to ensure potassium is within reasonable range. ?? Total time spent: [address] Leigh. Franchesca Liu MD Internal Medicine PGY-3 [id number] documented in this encounter Plan of Treatment Upcoming Encounters Date Type Specialty Care Team Description 06/01/2022 Telemedicine Pharmacy An Nicholas APRN, C.N.P., D.N.P., AlvaroS.N. [address] [place] [address] [phone] (Nicolas wen) 07/31/2022 Lab Laboratory Medicine Tony Rubalcava M. B., ChBurke, MDebra [address] [place] [address] [phone] (Nicolas wen) 07/31/2022 Lab Laboratory Medicine Tony Rubalcava M. B., ChBurke, MDebra [address] [place] [address] [phone] (Nicolas wen) 07/31/2022 Office Visit Transplant Tony Rubalcava M.B., Sydnie, MDebra [address] [place] [address] [phone] (Nicolas wen) 07/31/2022 Appointment Radiology Tony Rubalcava M.B., ChBurke, MDebra [address] [place] [address] [phone] (Nicolas wen) 08/01/2022 Office Visit Transplant Tony Rubalcava M.B., ChBurke, MDebra [address] [place] [address] [phone] (Nicolas wen) 08/01/2022 Clinical Support Transplant Tony Rubalcava M.B., Sydnie, MDebra [address] [place] [address] [phone] (Nicolas wen) documented as of this encounter Results (ABNORMAL) Basic Metabolic Panel [...] 01/03/2022 DTL Black/ mL/min/BSA 3:29 PM CDT [place] Comment: ----ADDITIONAL INFORMATION---- Estimated GFR calculated using [...] Blood (Blood, 01/03/2022 2:34 PM 01/04/20 22 2:55 Venous) CDT PM CDT Franchesca Liu M.D. LAB BLOOD ADD-ON Performing Organization Address City/State/ZIP Code Phon e Number [facility] - [address] [place], [place] [address] [facility] [place] [address] [facility] [address] (ABNORMAL) CBC with Differential, Blood (01/03/2022 2:34 PM CDT) [facility] Method Time Signature Hemoglobin 12.9 11.6 [...] Code Phon e Number [facility] - [address] [place], [place] [address] [facility] [place] [address] [facility] [address] documented in this encounter Visit Diagnoses Diagnosis Complication Dialysis Fistula Subsequent - Primary Ureteral Stent Exchange Chronic Kidney Disease Thombosis Arteriovenous Fistula Initial (HCC) Anticoagulant Therapy documented in this encounter Additional Health Concerns Infection Onset Date Last Indicated Resolved Time COVID19 Pending 01/03/2022 01/03/2022 01/03/2022 5:33 PM CDT Assessment Noted Time PHQ-9 Depression Total Score: 3 04/07/2021 9:37 AM CDT documented as of this encounter Care Teams Boiler Engineer Relationship Specialty Start Date End Date Elsewhere, Pcp PCP - General 09/17/19 documented as of this encounter
--- OUTSIDE RECORDS SUMMARY | 2022-05-25 13:04 | XMS_ITS | Encounter Summary ---
:1960 Author Organization [facility] Address [address] [place] [address] Care Team Providers Name Role Phone Elsewhere, Pcp Primary Care Provider Unavailable Reason for Visit Reason Comments OPC Procedure Testing 01/05 Encounter Details Date Type Department Care Team Description 12/28/2021 Clinical Communication Department of [place], OPC Procedure Urology in Geraldo Domínguez M.D. (Testing 01/05) [place], [facility] [address] [place], [place] [address] [place] [id number] [place], [place] [phone] (Work) [phone] Social History Tobacco Use Types Packs/Day Years [...] How often do you attend nondenominational or caodaism 1 to 4 times per [...] this encounter Miscellaneous Notes Telephone Encounter - Nicole Fuentes R.N. - 12/28/2021 2:07 PM CDT SUBJECTIVE CHIEF COMPLAINT / REASON FOR CALL OPC Procedure (Testing 01/05) Information Discussed Patient called and educated that she will need to start an antibiotic she will start this on 01/02 will skip the day of surgery then complete the course. She will take twice daily. The bactrim interacted with her coumadin and thus will have Omnicef per Dr. Spear. She is aware and will pick this up and start on 01/02. PLAN Disposition/Recommendation: antibiotic to start on 01/02 Information/Education: patient/caller able to teach back Caller agreeable to plan of care: yes The following references were used: nursing clinical judgement and provider Dr. Spear documented in this encounter Plan of Treatment Upcoming Encounters Date Type Specialty Care Team Description 06/01/2022 Telemedicine Pharmacy An Nicholas APRN, C.N.P., D.N.P., M.S.N. [address] [place] [address] [phone] (Wo behzad) 07/31/2022 Lab Laboratory Medicine Tony Rubalcava M. B., Sydnie, Mukund [address] [place] [address] [phone] (Wo rk) 07/31/2022 Lab Laboratory Medicine Tony Rubalcava M. B., Sydnie, Mukund [address] [place] [address] [phone] (Wo rk) 07/31/2022 Office Visit Transplant Tony Rubalcava M.B., Sydnie, Mukund [address] [place] [address] [phone] (Wo rk) 07/31/2022 Appointment Radiology Tony Rubalcava M.B., Sydnie, Mukund [address] [place] [address] [phone] (Wo rk) 08/01/2022 Office Visit Transplant Tony Rubalcava M.B., ySdnie, MDebra [address] [place] [address] [phone] (Wo rk) 08/01/2022 Clinical Support Transplant Tony Rubalcava M.B., Sydnie, MDebra [address] [place] [address] [phone] (Wo rk) documented as of this encounter Visit Diagnoses Not on filedocumented in this encounter Additional Health Concerns Assessment Noted Time PHQ-9 Depression Total Score: 3 04/07/2021 9:37 AM CDT documented as of this encounter Care Teams Fire Watcher Relationship Specialty Start Date End Date Elsewhere, Pcp PCP - General 09/17/19 documented as of this encounter
--- OUTSIDE RECORDS SUMMARY | 2022-05-25 13:04 | XMS_ITS | Encounter Summary ---
:1960 Author Organization [facility] Address [address] [place] [address] Care Team Providers Name Role Phone Elsewhere, Pcp Primary Care Provider Unavailable Encounter Details Date Type Department Care Team Description 01/05/2022 Surgery Outpatient Procedure Geraldo Spear URETERAL STENT Center in Catrachita Hernandez M.D. [place] [address] [address] [facility] [address] [place] [phone] Social History Tobacco Use Types Packs/Day Years [...] How often do you attend alevism or anabaptist 1 to 4 times per [...] Taken Comments Blood Pressure - - Pulse 81 01/05/2022 10:55 AM CDT Temperature 36.5 ??C (97.7 ??F) 01/05/2022 10:54 AM CDT Respiratory Rate 15 01/05/2022 10:55 AM CDT Oxygen Saturation 93% 01/05/2022 10:55 AM CDT Inhaled Oxygen Concentration - - [...] 4.5 mg Sun-Sun-Sun, 4 mg other days acetaminophen (TYLENOL) Take [...] exchange of right-sided Imajin stent with 8 [id number] JJ stent, located within the patient's transplanted [...] over the wire. At this point, a Elgin Tail catheter was advanced over the guidewire to the mid ureter. ??The wire was removed, and a retrograde pyelogram was performed. ??This demonstrated no hydronephrosis, filling defects, strictures, contrast extravasation. ??The Sensor-tip guidewire was replaced, and the Elgin Tail catheter was removed over wire. A [...] An Nicholas APRN, C.N.P., D.N.P., M.S.N. [address] [place] [phone] (Nicolas wen) 07/31/2022 Lab Laboratory Medicine Tony Rubalcava M. B., ChBurke, MElvia. [address] [place] [address] [phone] (Nicolas wen) 07/31/2022 Lab Laboratory Medicine Tony Rubalcava M. B., ChDaviBDavi, MElvia. [address] [place] [address] [phone] (Nicolas wen) 07/31/2022 Office Visit Transplant Tony Rubalcava M.B., ChDaviBDavi, MDebra [address] [place] [address] [phone] (Nicolas wen) 07/31/2022 Appointment Radiology Tony Rubalcava M.B., ChDaviBDavi, MElvia. [address] [place] [address] [phone] (Nicolas wen) 08/01/2022 Office Visit Transplant Tony Rubalcava M.B., [place] [address] [place], [place] 55 [phone] (Wo behzad) 08/01/2022 Clinical Support Transplant Tony Rubalcava M.B., [place]und [place] [address] [place], [place] [phone] (Nicolas wen) documented as [...] Time Received Time / Laterality Volume Narrative [id number] - 01/05/2022 11:13 AM CDT This exam does not require a radiologist review or interpretation. Please refer to the patient's medical record on this date for clinical details. Tanvir Avendano M.D. IMEdnison FLUOROSCOPY PROCEDURES Performing Organization Address City/State/ZIP Code Phon e Number [id number] NA INR, POCT (01/05/2022 9:44 AM CDT) P athologist Signature INR, POCT, B 1.4 01/05/2022 PCMO 9:48 AM CDT Comment: ----ADDITIONAL INFORMATION---- Standard intensity warfarin therapeutic range: 2.0 to 3.0 ?? High intensity warfarin therapeutic rang e: 2.5 to 3.5 Specimen Anatomical Collection Method Collection Time Receive d Time (Source) Location / / Volume Laterality Blood 01/05/2022 9:44 AM 9:49 CDT AM CDT Unknown Provider LAB POCT ORDERABLES - DEVICE Performing Organization Address City/State/ZIP Code Phon e Number POC [facility] [address] [place] [address] OUTPATIENT LABS PCMO [facility] [place] [address] [place] [facility] [address] documented in this encounter Visit Diagnoses Diagnosis Ureteral Stent Exchange documented in this encounter Administered Medications Inactive Administered Medications - up to 3 most recent administrations Medication Order MAR Action Action Date Dose Rate Site acetaminophen tablet 1,000 mg Given 01/05/2022 9:38 AM CDT 1,000 mg (TYLENOL) 1,000 mg, oral, Once, On Elizabeth 01/05/22 at 0930, For 1 dose, Pre-Op iohexoL 300 mg iodine/mL solution Given 01/05/2022 10:36 AM CDT 4 mL Right Ureter (OMNIPAQUE) As needed, Starting on Elizabeth 01/05/22 at 1036, Intra-Op lactated ringers Restarted 01/05/2022 10:14 AM CDT [...] 01/05/2022 acetaminophen tablet 1,000 mg (TYLENOL) (COMPLETED) 09 (Given - Provider: Юлия Blood R.N.) 1,000 [...] for administration guidelines. , Drug Monitoring Program: [facility] rmacist to adjust medication dosing base d [...] ringers 0940 (Not Given - Provider: Юлия Blood R.N. - Reason: Other - Comment: duplicate) 80 mL/hr, intravenous, Continuous, Starting on Elizabeth 01/05/22 at 09 30, Pre-Op lactated ringers 0942 (New Bag - Provider: Юлия Blood R.N.)0950 (New Bag - Provider: Mina Ordoñez APRN, FLORENCIO)1013 (Paused - Provider: Mina Ordoñez APRN, CRNA - Comment: Switch to gravity)1014 (Restarted - Provider: Mina Ordoñez APRN, CRNA) 80 mL/hr, intravenous, Continuous, Starting on Elizabeth 01/05/22 at 09 30 1045 (Anesthesia Volume Adjustment - Provider: Mina Ordoñez APRN, CRNA)1150 (Stopped - Provider: Юлия Blood R.N.) PRN [...] documented as of this encounter Care Teams Petrophysicist Relationship Specialty Start Date End Date Elsewhere, Pcp PCP - General 09/17/19 documented as of this encounter
--- OUTSIDE RECORDS SUMMARY | 2022-05-25 13:05 | XMS_ITS | Encounter Summary ---
:1960 Author Organization [facility] Address [address] [place] [address] Care Team Providers Name Role Phone Elsewhere, Pcp Primary Care Provider Unavailable Encounter Details Date Type Department Care Team Description 09/19/2021 Lab Department of Araceli Lerner Squa mous Cell Carcinoma Medicine, [place] [facility], in [address] [phone] Social History Tobacco Use Types Packs/Day Years [...] How often do you attend restoration or bahai 1 to 4 times per [...] An Nicholas APRN C.N.P., D.N.P., M.S.N. [address] [place] [address] [phone] (Wo rk) 07/31/2022 Lab Laboratory Medicine Tony Rubalcava M. B., ChBurke, MDebra [address] [place] [address] 55 [phone] ( rk) 07/31/2022 Lab Laboratory Medicine Tony Rubalcava M. B., ChBurke, MDebra [address] [place] [address] [phone] (Wo rk) 07/31/2022 Office Visit Transplant Tony Rubalcava M.B., ChBurke, MDebra [address] [place] [address] 55 [phone] ( rk) 07/31/2022 Appointment Radiology Tony Rubalcava M.B., Sydnie, MDebra [address] [place] [address] [phone] ( rk) 08/01/2022 Office Visit Transplant Tony Rubalcava M.B., [place]und [place] [address] [place], [place] 55 [phone] (Wo rk) 08/01/2022 Clinical Support Transplant Tony Rubalcava M.B., Mukund Otoole [address] [place], [place] [phone] (Wo rk) documented as of this encounter Procedures Procedure Name Priority Date/Time Associated Diagnosis Comme nts SARS CORONAVIRUS-2 Routine 09/19/2021 10:37 AM Squamous Cell R esults for this RNA, V PARTY HOST/HOSTESS Carcinoma In Situ procedure are in the results section. documented in this encounter Results SARS Coronavirus-2 RNA, V Asymptomatic (09/19/2021 10:37 AM PARTY HOST/HOSTESS) [facility] Method Time Signature SARS-CoV-2 Swab, 09/20/2021 ECLR Specimen Nasopharynx 12:52 AM Source PARTY HOST/HOSTESS SARS CoV-2 Undetected Undetected 09/20/2021 ECLR RNA, TMA 12:52 AM PARTY HOST/HOSTESS Comment: SARS-CoV-2 RNA absent. This result does not rule out COVID-19 in the patient, as the sensitivity of the test depends o n the timing of the specimen collection and the quality of the specim en. Result should be correlated with patient's history and clinical presentat ion. ----ADDITIONAL INFORMATION---- This molecular amplification test was pe rformed using the Aptima SARS-CoV-2 assay ([employer] on the [place] tem under emergency use authorization (EUA) by the U.S. Food and Drug Administ ration. Fact sheets for this EUA assay can be fo und at the following links: For Healthcare Providers: https://www.fd a.gov/media/686159/download For Patients: https://www.fda.gov/media/ 131783/download Specimen Anatomical Collection Method Collection Time Receive d Time (Source) Location / / Volume Laterality Varies 09/19/2021 10:37 09/19/2021 3:01 (Nasopharynx) AM PARTY HOST/HOSTESS PM PARTY HOST/HOSTESS Araceli Ross M.D. LAB MICROBIOLOGY - GENERAL O RDERABLES Performing Organization Address City/State/ZIP Code Phon e Number [facility]- [address] [place] [address] [facility] [place] [address] documented in this encounter Visit Diagnoses Diagnosis Squamous Cell Carcinoma In Situ documented in this encounter Additional Health Concerns Infection Onset Date Last Indicated Resolved Time COVID19 Pending 09/19/2021 09/19/2021 09/20/2021 12:53 AM PARTY HOST/HOSTESS Assessment Noted Time PHQ-9 Depression Total Score: 3 04/07/2021 9:37 AM CDT documented as of this encounter Care Teams Ux Information Architect Relationship Specialty Start Date End Date Elsewhere, Pcp PCP - General 09/17/19 documented as of this encounter
--- OUTSIDE RECORDS SUMMARY | 2022-05-25 13:05 | XMS_ITS | Encounter Summary ---
:1960 Author Organization [facility] Address [address] [place] [address] Care Team Providers Name Role Phone Elsewhere, Pcp Primary Care Provider Unavailable Encounter Details Date Type Department Care Team Description 11/16/2021 Orders Only Division of Nephrology and Zaire Candelario A PRN, Hypertension, Scientology C.N.P. [place], in [employer], [address] [place] [address] [place] [phone] [place] [address] [phone] Social History Tobacco Use Types Packs/Day Years [...] 12/23/2021 relatives? How often do you attend orthodox or anglican 1 to 4 times per year 12/23/2021 services? Do you belong to any clubs or organizations such No 12/23/2021 as orthodox groups, unions, fraternal or athletic groups, [...] An Nicholas APRN C.N.P., D.N.P., M.S.N. [address] [place] [address] [phone] (Wo rk) 07/31/2022 Lab Laboratory Medicine Tony Rubalcava M. B., Sydnie, MDebra [address] [place] [address] 55 [phone] (Wo rk) 07/31/2022 Lab Laboratory Medicine Tony Rubalcava M. B., ChBurke, MDebra [address] [place] [address] 55 [phone] (Wo behzad) 07/31/2022 Office Visit Transplant Tony Rubalcava M.B., Sydnie, MDebra [address] [place] [address] 55 [phone] (Wo behzad) 07/31/2022 Appointment Radiology Tony Rubalcava M.B., Sydnie, [place]und [address] [place] [address] 55 [phone] (Wo rk) 08/01/2022 Office Visit Transplant Tony Rubalcava M.B., [place] Otoole [address] [place] [address] 55 [phone] (Wo rk) 08/01/2022 Clinical Support Transplant Tony Rubalcava M.B., [place]und Otoole [address] [place] [address] 55 [phone] (Wo behzad) documented as of this encounter Visit Diagnoses Not on filedocumented in this encounter Additional Health Concerns Assessment Noted Time PHQ-9 Depression Total Score: 3 04/07/2021 9:37 AM CDT documented as of this encounter Care Teams Mid Level Game Designer Relationship Specialty Start Date End Date Elsewhere, Pcp PCP - General 09/17/19 documented as of this encounter
--- OUTSIDE RECORDS SUMMARY | 2022-05-25 13:05 | XMS_ITS | Encounter Summary ---
:1960 Author Organization [facility] Address [address] [place] [address] Care Team Providers Name Role Phone Elsewhere, Pcp Primary Care Provider Unavailable Encounter Details Date Type Department Care Team Description 09/08/2021 Orders Only Ata Dick Guilherme, Yvonne Bautista Kidney Disease; Center for M.D. Pretransplant Recipient Evaluation Exam Transplantation and [address] [place] [address] Clinical Regeneration in [place], [place] [address] [place] [address] [place] [address] (Work) [phone] Social History Tobacco Use Types Packs/Day Years [...] 12/23/2021 relatives? How often do you attend jewish or jainism 1 to 4 times per year 12/23/2021 services? Do you belong to any clubs or organizations such No 12/23/2021 as jewish groups, unions, fraternal or athletic groups, or [...] Nicholas APRN, C.N.P., D.N.P., M.S.N. [address] [place] [address] 55 [phone] (Nicolas wen) 07/31/2022 Lab Laboratory Medicine Tony Rubalcava M. B., ChDaviBDavi, M.Michelle. [address] [place] [address] 55 [phone] (Nicolas wen) 07/31/2022 Lab Laboratory Medicine Tony Rubalcava M. B., ChDaviBDavi, MElvia. [address] [place] [address] 55 [phone] (Nicolas wen) 07/31/2022 Office Visit Transplant Tony Rubalcava M.B., ChBurke, MElvia. [address] [place] [address] 55 [phone] (Nicolas wen) 07/31/2022 Appointment Radiology Tony Rubalcava M.B., Sydnie, [place]und [address] [place], [place] 55 [phone] (Wo rk) 08/01/2022 Office Visit Transplant Tony Rubalcava M.B., Sydnie, [place] [address] [place], [place] 55 [phone] (Wo rk) 08/01/2022 Clinical Support Transplant Tony Rubalcava M.B., Sydnie, [place]und [address] [place], [place] 55 [phone] (Wo rk) documented as of this encounter Results HLA Class II SAB Antibody Screen (10/28/2021 5:45 AM DIRECTOR DATA ANALYTICS) [facility] Method Time Signature Class II SAB Positive Not Applicable 11/01/2021 DBB8 Overall 9:19 AM CDT Result Class II SAB 37 11/01/2021 DBB8 cPRA 9:19 AM CDT Comment: ----ADDITIONAL INFORMATION---- cPRA is calculated for either HLA class I or II (except DPB1) antibodies with a normalized MFI >2000 u sing published UNOS frequencies (http://optn.transplant.hrsa .gov). ??For convenience, all HLA antibodies with a normalized MFI >500 are listed in the specificity wilde. SAB DRB1 Specificity NONE 11/01/2021 9:19 AM CDT DBB8 SAB [id number] Specificity NONE 11/01/2021 9:19 A M CDT DBB8 SAB DQB1 Specificity see below 11/01/2021 9:19 AM CDT DBB8 Comment: 2(A*05:01;B*02:01)[5361] Format: Serologic Eq.(DQA1;DQB1 Mol. All jorge)[Normalized MFI] NOTE: Data is displayed in descending or kristi by Mean Fluorescence Intensity (MFI). ??Serologic equivalents can be di splayed multiple times for different molecular alleles. SAB DPB1 Specificity NONE 11/01/2021 9:19 AM CDT DBB8 Comment: ----ADDITIONAL INFORMATION---- Method: Luminex Flow Cytometry CLIA: [id number] ??CLIA Brokerage Manager: SHANTA LOYD MD,PhD Specimen Anatomical Collection Method Collection Time Receive d Time (Source) Location / / Volume Laterality Blood (Blood, 10/28/2021 5:45 AM 10/30/19 22 1:13 Venous) DIRECTOR DATA ANALYTICS PM DIRECTOR DATA ANALYTICS Twin Vanegas M.D. LAB HLA ORDERABLES Performing Organization Address City/State/ZIP Code Phon e Number [facility] - [address] [place], [place] [address] [facility] DBB8 [place] [address] Laboratories-[facility] [address] HLA Class I SAB Antibody Screen (10/28/2021 5:45 AM DIRECTOR DATA ANALYTICS) [facility] Method Time Signature Class I SAB Positive Not Applicable 11/01/2021 DBB8 Overall 9:19 AM CDT Result Class I SAB 18 11/01/2021 DBB8 cPRA 9:19 AM CDT Comment: ----ADDITIONAL INFORMATION---- cPRA is calculated for either HLA class I or II (except DPB1) antibodies with a normalized MFI >2000 u sing published UNOS frequencies (http://optn.transplant.hrsa .gov). ??For convenience, all HLA antibodies with a normalized MFI >500 are listed in the specificity wilde. SAB A Specificity see below 11/01/2021 9:19 AM CDT DBB8 Comment: 32(32:01)[2104], 25(25:01)[1196], 24(24: 03)[1050], 31(31:01)[945], 23(23:01)[932], 24(24:02 )[820], 30(30:01)[807] Format: Serologic Eq.(A Mol. Allele)[Nor malized MFI] NOTE: Data is displayed in descending or kristi by Mean Fluorescence Intensity (MFI). ??Serologic equivalents can be di splayed multiple times for different molecular alleles. SAB B Specificity see below 11/01/2021 9:19 AM CDT DBB8 Comment: 51(51:01)[5359], 49(49:01)[3186], 51(51: 02)[2490], 67(67:01)[2317], 38(38:01)[1983], 78(78: 01)[1862], 59(59:01)[1859], 63(15:16)[1835], 52(52: 01)[1650], 77(15:13)[1390], 75(15:02)[1340], 57(57: 01)[1280], 53(53:01)[1275], 57(57:03)[1223], 58(58: 01)[967] Format: Serologic Eq.(B Mol. Allele)[Nor malized MFI] NOTE: Data is displayed in descending or kristi by Mean Fluorescence Intensity (MFI). ??Serologic equivalents can be di splayed multiple times for different molecular alleles. SAB C Specificity NONE 11/01/2021 9:19 AM CDT DBB8 Comment: ----ADDITIONAL INFORMATION---- Method: Luminex Flow Cytometry CLIA: [id number] ??CLIA Brokerage Manager: SHANTA LOYD MD,PhD Specimen Anatomical Collection Method Collection Time Receive d Time (Source) Location / / Volume Laterality Blood (Blood, 10/28/2021 5:45 AM 10/30/19 22 1:13 Venous) DIRECTOR DATA ANALYTICS PM DIRECTOR DATA ANALYTICS Twin Vanegas M.D. LAB HLA ORDERABLES Performing Organization Address City/State/ZIP Code Phon e Number [facility] - [address] [place], [place] [address] [facility] DBB8 [place] [address] Laboratories-[facility] [address] documented in this encounter Visit Diagnoses Diagnosis Chronic Kidney Disease Pretransplant Recipient Evaluation Exam documented in this encounter Additional Health Concerns Assessment Noted Time PHQ-9 Depression Total Score: 3 04/07/2021 9:37 AM CDT documented as of this encounter Care Teams Septic Tank Setter Relationship Specialty Start Date End Date Elsewhere, Pcp PCP - General 09/17/19 documented as of this encounter
--- OUTSIDE RECORDS SUMMARY | 2022-05-25 13:05 | XMS_ITS | Encounter Summary ---
:1960 Author Organization [facility] Address [address] [place] [address] Care Team Providers Name Role Phone Elsewhere, Pcp Primary Care Provider Unavailable Encounter Details Date Type Department Care Team Description 09/22/2021 Ancillary Procedure Department of Dermatology Social History Tobacco Use Types Packs/Day Years [...] How often do you attend mandaeism or taoism 1 to 4 times per year 12/23/2021 [...] Nicholas APRN C.N.P., D.N.P., M.S.N. [address] [place] [address] 55 [phone] (Wo rk) 07/31/2022 Lab Laboratory Medicine Tony Rubalcava M. B., Sydnie, MDebra [address] [place] [address] 55 [phone] (Wo rk) 07/31/2022 Lab Laboratory Medicine Tony Rubalcava M. B., Sydnie, MDebra [address] [place] [address] 55 [phone] (Wo rk) 07/31/2022 Office Visit Transplant Tony Rubalcava M.B., ChBurke, MDebra [address] [place] [address] 55 [phone] (Wo rk) 07/31/2022 Appointment Radiology Tony Rubalcava M.B., ChBurke, MDebra [address] [place] [address] 55 [phone] (Wo rk) 08/01/2022 Office Visit Transplant Tony Rubalcava M.B., Sydnie, MDebra [address] [place] [address] [phone] (Wo rk) 08/01/2022 Clinical Support Transplant RufinoeliTony M.B., Shashi Otoole. [address] [place], [place] 55 [phone] (Wo rk) documented as of this encounter Procedures Procedure Name Priority Date/Time Associated Comments Diagnosis DERMATOLOGY IMAGE Routine 09/22/2021 12:00 Result s for this EXAM PM SERVICE ADVOCATE CONTACT procedure are i n the results section. documented in this encounter Results foot, left lateral heel 417 Mohs micrographic surgery-Dermatology Image Exam (09/22/2021 12:00 PM SERVICE ADVOCATE CONTACT) Specimen (Source) Anatomical Collection Method Collection Time Re ceived Time Location / / Volume Laterality 09/22/2021 12:00 PM SERVICE ADVOCATE CONTACT Narrative IIMS - 09/22/2021 1:20 PM SERVICE ADVOCATE CONTACT This order has been created and auto-finalized [...] documented as of this encounter Care Teams Qa Software Tester Relationship Specialty Start Date End Date Elsewhere, Pcp PCP - General 09/17/19 documented as of this encounter
--- OUTSIDE RECORDS SUMMARY | 2022-05-25 13:05 | XMS_ITS | Encounter Summary ---
:1960 Author Organization [facility] Address [address] [place] [address] Care Team Providers Name Role Phone Elsewhere, Pcp Primary Care Provider Unavailable Encounter Details Date Type Department Care Team Description 11/23/2021 Documentation Preoperative Evaluation Samm Robert, Center in [place], CHRISTOPHER, C.N.P ., M.S. [place] [address] [address] [facility] [address] [place] [address] [phone] (Wo rk) Social History Tobacco Use Types [...] How often do you attend baptist or church 1 to 4 times per year 12/23/2021 [...] documented as of this encounter Progress Notes Samm Robert APRN, C.N.P., M.S. - 11/23/2021 11:43 AM CDT This is a SIDNEY pre-screening note to ascertain if a SIDNEY appointment is needed. Based on 12 point health systems review available per EMR and Care Everywhere, the patient needs pre-operative evaluation by Kidney Pancreas TXP for 01/05/2022 right ureteral stent exchange. The patient was not seen in SIDNEY. documented in this encounter Plan of Treatment Upcoming Encounters Date Type Specialty Care Team Description 06/01/2022 Telemedicine Pharmacy An Nicholas APRN, C.NDaviPDavi, D.N.P., M.S.N. [address] [place] [address] 55 [phone] (Nicolas wen) 07/31/2022 Lab Laboratory Medicine Tony Rubalcava M. B., Yvonne.Maurice, M.D. [address] [place] [address] 55 [phone] (Nicolas wen) 07/31/2022 Lab Laboratory Medicine Tony Rubalcava M. B., Sydnie, [place]und [address] [place] [address] [phone] (Wo rk) 07/31/2022 Office Visit Transplant Tony Rubalcava M.B., Sydnie, Mukund [address] [place] [address] 55 [phone] (Wo rk) 07/31/2022 Appointment Radiology Tony Rubalcava M.B., Sydnie, [place]und [address] [place] [address] 55 [phone] (Wo rk) 08/01/2022 Office Visit Transplant Tony Rubalcava M.B., Sydnie, [place] [address] [place] [address] 55 [phone] (Wo rk) 08/01/2022 Clinical Support Transplant Tony Rubalcava M.B., Sydnie, [place] [address] [place] [address] 55 [phone] (Wo rk) documented as of this encounter Visit Diagnoses Not on filedocumented in this encounter Additional Health Concerns Assessment Noted Time PHQ-9 Depression Total Score: 3 04/07/2021 9:37 AM CDT documented as of this encounter Care Teams Receptionist Scheduler Relationship Specialty Start Date End Date Elsewhere, Pcp PCP - General 09/17/19 documented as of this encounter
--- OUTSIDE RECORDS SUMMARY | 2022-05-25 13:05 | XMS_ITS | Encounter Summary ---
:1960 Author Organization [facility] Address [address] [place] [address] Care Team Providers Name Role Phone Elsewhere, Pcp Primary Care Provider Unavailable Encounter Details Date Type Department Care Team Description 12/08/2021 Orders Only Ata Dick Guilherme, Yvonne Bautista Kidney Disease; Center for M.D. Pretransplant Recipient Evaluation Exam Transplantation and [address] [place] [address] Clinical Regeneration in [place], [place] [address] [place] [address] [place] [address] (Work) [phone] Social History Tobacco Use Types Packs/Day Years [...] 12/23/2021 relatives? How often do you attend moravian or advent 1 to 4 times per year 12/23/2021 services? Do you belong to any clubs or organizations such No 12/23/2021 as moravian groups, unions, fraternal or athletic groups, or [...] Nicholas APRN, C.N.P., D.N.P., M.S.N. [address] [place] [address] 55 [phone] (Nicolas wen) 07/31/2022 Lab Laboratory Medicine Tony Rubalcava M. B., ChDaviBDavi, M.Michelle. [address] [place] [address] 55 [phone] (Nicolas wen) 07/31/2022 Lab Laboratory Medicine Tony Rubalcava M. B., ChDaviBDavi, MElvia. [address] [place] [address] 55 [phone] (Nicolas wen) 07/31/2022 Office Visit Transplant Tony Rubalcava M.B., ChBurke, MElvia. [address] [place] [address] 55 [phone] (Nicolas wen) 07/31/2022 Appointment Radiology Tony Rubalcava M.B., Sydnie, Mukund [address] [place], [place] 55 [phone] (Wo rk) 08/01/2022 Office Visit Transplant Tony Rubalcava M.B., Sydnie, Mukund [address] [place], [place] 55 [phone] (Wo rk) 08/01/2022 Clinical Support Transplant Tony Rubalcava M.B., Sydnie, Mukund [address] [place], [place] 55 [phone] (Wo rk) documented as of this encounter Results HLA Class II SAB Antibody Screen (12/19/2021 5:15 AM CDT) [facility] Method Time Signature Class II SAB [...] NONE 12/22/2021 9:48 AM CDT DBB8 SAB [id number] Specificity NONE 12/22/2021 9:48 A M CDT DBB8 SAB DQB1 Specificity see below 12/22/2021 9:48 AM CDT DBB8 Comment: 2(A*05:01;B*02:01)[3807] Format: Serologic Eq.(DQA1;DQB1 Mol. All jorge)[Normalized MFI] NOTE: Data is displayed in descending or kristi by Mean Fluorescence Intensity (MFI). ??Serologic equivalents can be di splayed multiple times for different molecular alleles. SAB DPB1 Specificity NONE 12/22/2021 9:48 AM CDT DBB8 Comment: ----ADDITIONAL INFORMATION---- Method: Luminex Flow Cytometry CLIA: [id number] ??CLIA Forest Resource Specialist: SHANTA LOYD MD,PhD Specimen Anatomical Collection Method Collection Time Receive d Time (Source) Location / / Volume Laterality Blood (Blood, 12/19/2021 5:15 AM 12/21/19 22 1:44 Venous) CDT PM CDT Twin Vanegas M.D. LAB HLA ORDERABLES Performing Organization Address City/State/ZIP Code Phon e Number [facility] - [address] [place], [place] [address] [facility] [place] [address] [place] [address] Laboratories-[facility] [address] HLA Class I SAB Antibody Screen (12/19/2021 5:15 AM CDT) [facility] Method Time Signature Class I SAB [...] below 12/22/2021 9:48 AM CDT DBB8 Comment: 51(51:01)[8521], 49(49:01)[2600], 51(51: 02)[2240], 78(78:01)[1814], 67(67:01)[1742], 38(38: 01)[1713], [...] ----ADDITIONAL INFORMATION---- Method: Luminex Flow Cytometry CLIA: [id number] ??CLIA Forest Resource Specialist: SHANTA LOYD MD,PhD Specimen Anatomical Collection Method Collection Time Receive d Time (Source) Location / / Volume Laterality Blood (Blood, 12/19/2021 5:15 AM 12/21/19 22 1:44 Venous) CDT PM CDT Twin Vanegas M.D. LAB HLA ORDERABLES Performing Organization Address City/State/ZIP Code Phon e Number [facility] - [address] [place], [place] [address] [facility] [address] [place] [address] Laboratories[facility] [address] documented in this encounter Visit Diagnoses Diagnosis Chronic Kidney Disease Pretransplant Recipient Evaluation Exam documented in this encounter Additional Health Concerns Assessment Noted Time PHQ-9 Depression Total Score: 3 04/07/2021 9:37 AM CDT documented as of this encounter Care Teams City Controller Relationship Specialty Start Date End Date Elsewhere, Pcp PCP - General 09/17/19 documented as of this encounter
--- OUTSIDE RECORDS SUMMARY | 2022-05-25 13:05 | XMS_ITS | Encounter Summary ---
:1960 Author Organization [facility] Address [address] [place] [address] Care Team Providers Name Role Phone Elsewhere, [...] How often do you attend advent or sabianist 1 to 4 times per [...] An Nicholas APRN C.N.P., D.N.P., M.S.N. [address] [place] [address] [phone] (Wo rk) 07/31/2022 Lab Laboratory Medicine Tony Rubalcava M. B., Sydnie, MDebra [address] [place] [address] 55 [phone] (Wo rk) 07/31/2022 Lab Laboratory Medicine Tony Rubalcava M. B., Sydnie, MDebra [address] [place] [address] 55 [phone] (Wo rk) 07/31/2022 Office Visit Transplant Tony Rubalcava M.B., ChBurke, MDebra [address] [place] [address] 55 [phone] (Wo rk) 07/31/2022 Appointment Radiology Tony Rubalcava M.B., ChBurke, MDebra [address] [place] [address] 55 [phone] (Wo rk) 08/01/2022 Office Visit Transplant Tony Rubalcava M.B., Sydnie, MDebra [address] [place] [address] [phone] (Wo rk) 08/01/2022 Clinical Support Transplant RufinoeliTony M.B., Shashi Otoole. [address] [place], [place] [address] [phone] (Wo rk) documented as of this encounter Procedures Procedure Name Priority Date/Time Associated Comments Diagnosis DERMATOLOGY IMAGE Routine 09/22/2021 12:15 Result s for this EXAM PM DEVELOPMENTAL WRITING INSTRUCTOR procedure are i n the results section. documented in this encounter Results foot, left lateral heel 417 Mohs micrographic surgery-Dermatology Image Exam (09/22/2021 12:15 PM DEVELOPMENTAL WRITING INSTRUCTOR) Specimen (Source) Anatomical Collection Method Collection Time Re ceived Time Location / / Volume Laterality 09/22/2021 12:00 PM DEVELOPMENTAL WRITING INSTRUCTOR Narrative IIMS - 09/22/2021 1:20 PM DEVELOPMENTAL WRITING INSTRUCTOR This order has been created and auto-finalized [...] documented as of this encounter Care Teams Ct Technician Relationship Specialty Start Date End Date Elsewhere, Pcp PCP - General 09/17/19 documented as of this encounter
--- OUTSIDE RECORDS SUMMARY | 2022-05-25 13:05 | XMS_ITS | Encounter Summary ---
:1960 Author Organization [facility] Address [address] [place] [address] Care Team Providers Name Role Phone Elsewhere, Pcp Primary Care Provider Unavailable Reason for Visit Reason Comments Med Refill Encounter Details Date Type Department Care Team Description 09/26/2021 Refill Division of Nephrology and [place], Neymar Yap Jr., Med Refill Hypertension in [facility] [address] [facility] [address] [place] [address] [place] [address] [phone] Social History Tobacco Use Types Packs/Day Years [...] How often do you attend jainism or congregation 1 to 4 times per year 12/23/2021 [...] this encounter Miscellaneous Notes Telephone Encounter - Val Lewis - 10/24/2021 8:26 AM CST Images from the original note were not included. Alejandro Francisco, We received another note from the pharmacy in regards to the warfarin rx. They are wondering what RXis correct. Thank you, Val Lewis [employer] Boat Mechanic Nephrology and Hypertension [address] ADMINISTRATOR Telephone Encounter - Moni Hurd - 09/26/2021 2:06 PM CST Images from the original note were not included. Rae De Leon is seeking clarification for the warfarin Rx, there are two different directions that are not clear to them. Please call the pharmacy at [phone]. Thank you. [address] ADMINISTRATOR documented in this encounter Plan of Treatment Upcoming Encounters Date Type Specialty Care Team Description 06/01/2022 Telemedicine Pharmacy An Nicholas APRN, C.N.P., D.N.P., M.S.N. [address] [place] [address] [phone] (Wo rk) 07/31/2022 Lab Laboratory Medicine Tony Rubalcava M. B., Sydnie, MDebra [address] [place] [address] [phone] (Wo rk) 07/31/2022 Lab Laboratory Medicine Tony Rubalcava M. B., Sydnie, MDebra [address] [place] [address] [phone] (Wo rk) 07/31/2022 Office Visit Transplant Tony Rubalcava M.B., Sydnie, MDebra [address] [place] [address] [phone] (Wo rk) 07/31/2022 Appointment Radiology Tony Rubalcava M.B., Sydnie, MDebra [address] [place] [address] 55 [phone] (Wo rk) 08/01/2022 Office Visit Transplant Tony Rubalcava M.B., ChBurke, MDebra [address] [place] [address] 55 [phone] (Wo rk) 08/01/2022 Clinical Support Transplant Tony Rubalcava M.B., Sydnie, MDebra [address] [place] [address] [phone] (Wo rk) documented as of this encounter Visit Diagnoses Not on filedocumented in this encounter Additional Health Concerns Assessment Noted Time PHQ-9 Depression Total Score: 3 04/07/2021 9:37 AM CDT documented as of this encounter Care Teams Hardwood Faller Relationship Specialty Start Date End Date Elsewhere, Pcp PCP - General 09/17/19 documented as of this encounter
--- OUTSIDE RECORDS SUMMARY | 2022-05-25 13:05 | XMS_ITS | Encounter Summary ---
:1960 Author Organization [facility] Address [address] [place] [address] Care Team Providers Name Role Phone Elsewhere, Pcp Primary Care Provider Unavailable Encounter Details Date Type Department Care Team Description 11/26/2021 Orders Only Department of Urology Ayanna Hooker, Ivan nsplanpayam Renal (HCC) (Primary Dx); in [facility] bozena Duval, M.B.A. Ureteral Stent Exchange [address] [facility] [address] [place] [address] [phone] Social History Tobacco Use Types Packs/Day Years [...] How often do you attend episcopalian or latter-day 1 to 4 times per [...] Nicholas APRN, C.N.P., D.N.P., M.S.N. [address] [place] [address] [phone] (Nicolas wen) 07/31/2022 Lab Laboratory Medicine Tony Rubalcava M. B., Ch.BDavi, M.D. [address] [place] [address] [phone] (Nicolas wen) 07/31/2022 Lab Laboratory Medicine Tony Rubalcava M. B., ChDaviBDavi, MDaviD. [address] [place] [address] 55 [phone] (Nicolas wen) 07/31/2022 Office Visit Transplant Tony Rubalcava M.B., ChDaviBDavi, M.D. [address] [place] [address] [phone] (Nicolas wen) 07/31/2022 Appointment Radiology Tony Rubalcava M.B., Mukund Otoole [address] [place] [address] [phone] (Wo rk) 08/01/2022 Office Visit Transplant Tony Rubalcava M.B., Mukund Otoole [address] [place] [address] [phone] (Wo rk) 08/01/2022 Clinical Support Transplant Tony Rubalcava M.B., Mukund Otoole [address] [place] [address] [phone] (Wo rk) documented as of this encounter Visit Diagnoses Diagnosis Transplant Renal (HCC) - Primary Ureteral Stent Exchange documented in this encounter Additional Health Concerns Assessment Noted Time PHQ-9 Depression Total Score: 3 04/07/2021 9:37 AM CDT documented as of this encounter Care Teams Cooling Tower Operator Relationship Specialty Start Date End Date Elsewhere, Pcp PCP - General 09/17/19 documented as of this encounter
--- OUTSIDE RECORDS SUMMARY | 2022-05-25 13:05 | XMS_ITS | Encounter Summary ---
:1960 Author Organization [facility] Address [address] [place] [address] Care Team Providers Name Role Phone Elsewhere, Pcp Primary Care Provider Unavailable Reason for Visit Reason Comments Phone Contact Encounter Details Date Type Department Care Team Description 09/19/2021 Clinical Communication Aba Pérez Phone Contact Center for K, R.N., Transplantation and C.C.T.C. Clinical Regeneration in [address] [place] [address] [place] [address] [place] [address] [phone] Social History Tobacco Use Types Packs/Day Years [...] How often do you attend zoroastrianism or muslim 1 to 4 times per year 12/23/2021 [...] this encounter Miscellaneous Notes Telephone Encounter - Shira Díaz R.N., C.C.T.C. - 09/19/2021 3:42 PM ENGLISH LANGUAGE ARTS TEACHER Returned call to Amira clinical social work aideShayla. I relayed to her that Shabnam's UNOS waiting time began accruing when she started dialysis (ie, her dialysis start date), on 06/15/17. She was appreciative ofthe information and will pass the date along to Shabnam when she sees her on dialysis on Sunday. ISH LANGUAGE ARTS TEACHER Telephone Encounter - Terrie Lowry - 09/19/2021 3:19 PM CST Pole Shaver Shayla called. Patient would like to know what date she started accruing time on the Organ List. Shayla can be reached at [phone], or Sunday at [phone]. Thank you, Bailey ISH LANGUAGE ARTS TEACHER documented in this encounter Plan of Treatment Upcoming Encounters Date Type Specialty Care Team Description 06/01/2022 Telemedicine Pharmacy An Nicholas APRN, C.NDaviPDavi, D.N.P., M.S.N. [address] [place] [address] [phone] (Wo rk) 07/31/2022 Lab Laboratory Medicine Tony Rubalcava M. B., Sydnie, Mukund [address] [place] [address] [phone] (Wo rk) 07/31/2022 Lab Laboratory Medicine Tony Rubalcava M. B., Sydnie, Mukund [address] [place] [address] [phone] (Wo rk) 07/31/2022 Office Visit Transplant Tony Rubalcava M.B., Sydnie, Mukund [address] [place] [address] [phone] (Wo rk) 07/31/2022 Appointment Radiology Tony Rubalcava M.B., Sydnie, Mukund [address] [place] [address] [phone] (Wo rk) 08/01/2022 Office Visit Transplant Tony Rubalcava M.B., Sydnie, Mukund [address] [place] [address] [phone] (Wo rk) 08/01/2022 Clinical Support Transplant Tony Rubalcava M.B., Sydnie, Mukund [address] [place] [address] [phone] (Wo rk) documented as of this encounter Visit Diagnoses Not on filedocumented in this encounter Additional Health Concerns Infection Onset Date Last Indicated Resolved Time COVID19 Pending 09/19/2021 09/19/2021 09/20/2021 12:53 AM ENGLISH LANGUAGE ARTS TEACHER Assessment Noted Time PHQ-9 Depression Total Score: 3 04/07/2021 9:37 AM CDT documented as of this encounter Care Teams Disability Case Manager Relationship Specialty Start Date End Date Elsewhere, Pcp PCP - General 09/17/19 documented as of this encounter
--- OUTSIDE RECORDS SUMMARY | 2022-05-25 13:05 | XMS_ITS | Encounter Summary ---
:1960 Author Organization [facility] Address [address] [place] [address] Care Team Providers Name Role Phone Elsewhere, Pcp Primary Care Provider Unavailable Encounter Details Date Type Department Care Team Description 09/09/2021 Hospital Encounter Department of GuilhermeTwin lowery Chro nic Kidney Disease; Laboratory Medicine M.D. Pretransplant Recipient Evaluation Exam and Pathology, [address] [place] [address] in [facility] [address] [place] [phone] [place] [address] (Work) [place], [place] [phone] (Fax) [phone] Social History Tobacco Use Types Packs/Day Years [...] 12/23/2021 relatives? How often do you attend religion or tenriism 1 to 4 times per year 12/23/2021 services? Do you belong to any clubs or organizations such No 12/23/2021 as religion groups, unions, fraternal or athletic groups, or [...] cefdinir (OMNICEF) 300 Take 1 capsule (300 3 capsule 0 11/1909/22/2021 mg capsuleIndications: mg total) by mouth Infection Urinary Tract as directed. Take 1 capsule every other day for 3 days. Do not take on the day of procedure. lidocaine-prilocaine APPLY TOPICALLY TO 60 g 11 020 04/07/2022 (EMLA) 2.5-2.5 % cream DIALYSIS ACCESS SITE 30 MINUTES PRIOR TO TREATMENT--GENERIC FOR EMLA multivitamin renal Take 1 tablet by 30 tablet 11 06/06/2019 09/22/2021 failure (DIALYVITE) mouth every evening. 100-1 mg tablet mycophenolate TAKE 1 CAPSULE(250 180 capsule 3 [...] total) every evening. warfarin (COUMADIN) 2 Take 4-4.5 mg by 0 02/03/20 21 09/26/2021 mg tablet mouth daily. 4.5 mg Mon-Wed-Fri, 4 mg other days documented as of this encounter Plan of Treatment Upcoming Encounters Date Type Specialty Care Team Description 06/01/2022 Telemedicine Pharmacy An Nicholas APRN, C.N.P., D.N.P., M.S.N. [address] [place], [place] [phone] (Wo rk) 07/31/2022 Lab Laboratory Medicine Tony Rubalcava M. B., Sydnie, Mukund [address] [place] [address] [phone] (Wo rk) 07/31/2022 Lab Laboratory Medicine Tony Rubalcava M. B., Sydnie, Mukund [address] [place] [address] 55 [phone] (Wo rk) 07/31/2022 Office Visit Transplant Tony Rubalcava M.B., Sydnie, Muknud [address] [place] [address] 55 [phone] (Nicolas rk) 07/31/2022 Appointment Radiology Tony Rubalcava M.B., Sydnie, Mukund [address] [place] [address] 55 [phone] (Nicolas rk) 08/01/2022 Office Visit Transplant Tony Rubalcava M.B., Sydnie, Mukund [address] [place] [address] 55 [phone] (Wo rk) 08/01/2022 Clinical Support Transplant Tony Rubalcava M.B., Sydnie, Mukund [address] [place] [address] [phone] (Nicolas rk) documented as of this encounter Procedures Procedure Name Priority Date/Time Associated Diagnosis Comme nts HLA CLASS II SAB Routine 10/28/2021 5:45 AM Chronic Kidney Res ults for this ANTIBODY SCREEN SECURITIES LENDING TRADER Disease procedure are in Pretransplant the results Recipient Evaluation section . Exam HLA CLASS I SAB Routine 10/28/2021 5:45 AM Chronic Kidney Resu lts for this ANTIBODY SCREEN SECURITIES LENDING TRADER Disease procedure are in Pretransplant the results Recipient Evaluation section . Exam documented in this encounter Results HLA Class II SAB Antibody Screen (10/28/2021 5:45 AM SECURITIES LENDING TRADER) Patholo gist Method Time Signature Class II SAB Positive [...] NONE 11/01/2021 9:19 AM CDT DBB8 SAB [id number] Specificity NONE 11/01/2021 9:19 A M CDT DBB8 SAB DQB1 Specificity see below 11/01/2021 9:19 AM CDT DBB8 Comment: 2(A*05:01;B*02:01)[7338] Format: Serologic Eq.(DQA1;DQB1 Mol. All jorge)[Normalized MFI] NOTE: Data is displayed in descending or kristi by Mean Fluorescence Intensity (MFI). ??Serologic equivalents can be di splayed multiple times for different molecular alleles. SAB DPB1 Specificity NONE 11/01/2021 9:19 AM CDT DBB8 Comment: ----ADDITIONAL INFORMATION---- Method: Luminex Flow Cytometry CLIA: [id number] ??CLIA Cargo Tank Mechanic: SHANTA LOYD MD,PhD Specimen Anatomical Collection Method Collection Time Receive d Time (Source) Location / / Volume Laterality Blood (Blood, 10/28/2021 5:45 AM 10/30/19 22 1:13 Venous) SECURITIES LENDING TRADER PM SECURITIES LENDING TRADER Twin Vanegas M.D. LAB HLA ORDERABLES Performing Organization Address City/State/ZIP Code Phon e Number [facility] - [address] [place], [place] [address] [facility] DBB[address] [place] [address] Laboratories-[facility] [address] HLA Class I SAB Antibody Screen (10/28/2021 5:45 AM SECURITIES LENDING TRADER) [facility] Method Time Signature Class I [...] ----ADDITIONAL INFORMATION---- Method: Luminex Flow Cytometry CLIA: [id number] ??CLIA Cargo Tank Mechanic: SHANTA LOYD MD,PhD Specimen Anatomical Collection Method Collection Time Receive d Time (Source) Location / / Volume Laterality Blood (Blood, 10/28/2021 5:45 AM 10/30/19 22 1:13 Venous) SECURITIES LENDING TRADER PM SECURITIES LENDING TRADER Twin Vanegas M.D. LAB HLA ORDERABLES Performing Organization Address City/State/[facility] Code Phon e Number [facility] - [address] [place], [place] [address] [facility] DBB[address] [place] [address] Laboratories-[facility] [address] documented in this encounter Visit Diagnoses Diagnosis Chronic Kidney Disease Pretransplant Recipient Evaluation Exam documented in this encounter Additional Health Concerns Assessment Noted Time PHQ-9 Depression Total Score: 3 04/07/2021 9:37 AM CDT documented as of this encounter Care Teams In Flight Refueling Operator Relationship Specialty Start Date End Date Elsewhere, Pcp PCP - General 09/17/19 documented as of this encounter
--- OUTSIDE RECORDS SUMMARY | 2022-05-25 13:05 | XMS_ITS | Encounter Summary ---
:1960 Author Organization [facility] Address [address] [place] [address] Care Team Providers Name Role Phone Elsewhere, Pcp Primary Care Provider Unavailable Encounter Details Date Type Department Care Team Description 10/24/2021 Orders Only Division of Nephrology and Z[place] Candelario A PRN, Hypertension, [facility] C.N.P. [place], in [place], [address] [place] [address] [place] [address] [place] [address] [phone] Social History Tobacco Use Types Packs/Day Years [...] How often do you attend pentecostalism or scientology 1 to 4 times per [...] An Nicholas APRN C.N.P., D.N.P., M.S.N. [address] [place] [address] 55 [phone] (Wo rk) 07/31/2022 Lab Laboratory Medicine Tony Rubalcava M. B., Sydnie, MDebra [address] [place] [address] 55 [phone] (Wo rk) 07/31/2022 Lab Laboratory Medicine Tony Rubalcava M. B., ChBurke, MDebra [address] [place] [address] 55 [phone] (Wo behzad) 07/31/2022 Office Visit Transplant Tony Rubalcava M.B., Sydnie, MDebra [address] [place] [address] 55 [phone] (Wo behzad) 07/31/2022 Appointment Radiology Tony Rubalcava M.B., Sydnie, Mukund [address] [place] [address] 55 [phone] (Wo rk) 08/01/2022 Office Visit Transplant Tony Rubalcava M.B., Mukund Otoole [address] [place] [address] 55 [phone] (Wo rk) 08/01/2022 Clinical Support Transplant Tony Rubalcava M.B., Mukund Otoole [address] [place] [address] 55 [phone] (Wo behzad) documented as of this encounter Visit Diagnoses Not on filedocumented in this encounter Additional Health Concerns Assessment Noted Time PHQ-9 Depression Total Score: 3 04/07/2021 9:37 AM CDT documented as of this encounter Care Teams Ophthalmologist Relationship Specialty Start Date End Date Elsewhere, Pcp PCP - General 09/17/19 documented as of this encounter
--- OUTSIDE RECORDS SUMMARY | 2022-05-25 13:05 | XMS_ITS | Encounter Summary ---
:1960 Author Organization [facility] Address [address] [place] [address] Care Team Providers Name Role Phone Elsewhere, Pcp Primary Care Provider Unavailable Encounter Details Date Type Department Care Team Description 11/25/2021 Orders Only Department of Urology in Ayanna Hooker M.D.[place], [place] M.B.A. 200 [facility] 200 [place] [address] [place], [place] [phone] (Wo rk) Social History Tobacco Use Types [...] How often do you attend holiness or rastafari 1 to 4 times per [...] Nicholas APRN C.N.P., D.N.P., M.S.N. [address] [place] [address] 55 [phone] (Wo rk) 07/31/2022 Lab Laboratory Medicine Tony Rubalcava M. B., ChBurke, MDebra [address] [place] [address] 55 [phone] (Wo rk) 07/31/2022 Lab Laboratory Medicine Tony Rubalcava M. B., ChBurke, MDebra [address] [place] [address] 55 [phone] (Wo rk) 07/31/2022 Office Visit Transplant Tony Rubalcava M.B., ChBurke, MDebra [address] [place] [address] 55 [phone] (Wo rk) 07/31/2022 Appointment Radiology Tony Rubalcava M.B., Mukund Otoole [address] [place] [address] 55 [phone] (Wo rk) 08/01/2022 Office Visit Transplant Tony Rubalcava M.B., Mukund Otoole [address] [place] [address] 55 [phone] (Wo rk) 08/01/2022 Clinical Support Transplant Tony Rubalcava M.B., Mukund Otoole [address] [place] [address] 55 [phone] (Wo rk) documented as of this encounter Visit Diagnoses Not on filedocumented in this encounter Additional Health Concerns Assessment Noted Time PHQ-9 Depression Total Score: 3 04/07/2021 9:37 AM CDT documented as of this encounter Care Teams Charge Manager Relationship Specialty Start Date End Date Elsewhere, Pcp PCP - General 09/17/19 documented as of this encounter
--- OUTSIDE RECORDS SUMMARY | 2022-05-25 13:05 | XMS_ITS | Encounter Summary ---
:1960 Author Organization [facility] Address [address] [place] [address] Care Team Providers Name Role Phone Elsewhere, Pcp Primary Care Provider Unavailable Encounter Details Date Type Department Care Team Description 11/25/2021 Clinical Communication Department of Urology Geraldo Spear in Catrachita Hernandez M.D. [address] 200 [place] [phone] Social History Tobacco Use Types Packs/Day Years [...] How often do you attend orthodox or mu-ism 1 to 4 times per [...] this encounter Miscellaneous Notes Telephone Encounter - Xi Valerio - 11/30/2021 3:20 PM CDT Rec'd a msg from Transplant and they wont do a SIDNEY for this patient, called regular SIDNEY and they stated then I need a GIM SIDNEY. Pls issue Telephone Encounter - Ayanna Hooker M.D., M.B.A. - 11/26/2021 1:18 PM CDT I placed the order, but I'm not 100% sure it's the correct one. Please let me know if it needs to becorrected. Thanks so much for your help! Telephone Encounter - Xi Valerio - 11/25/2021 4:32 PM CDT The SIDNEY desk called and stated they can not do a sidney on this patient as she is a transplant patient.Please issue a new order for a transplant sidney. Thank you documented in this encounter Plan of Treatment Upcoming Encounters Date Type Specialty Care Team Description 06/01/2022 Telemedicine Pharmacy An Nicholas APRN, C.NDoc, WhitneyN.P., M.S.N. [address] [place] [address] 55 [phone] (Wo rk) 07/31/2022 Lab Laboratory Medicine Tony Rubalcava M. B., Sydnie, MDebra [address] [place] [address] 55 [phone] (Wo rk) 07/31/2022 Lab Laboratory Medicine Tony Rubalcava M. B., Sydnie, Mukund [address] [place] [address] 55 [phone] (Wo rk) 07/31/2022 Office Visit Transplant Tony Rubalcava M.B., Sydnie, Mukund [address] [place] [address] 55 [phone] (Wo rk) 07/31/2022 Appointment Radiology Tony Rubalcava M.B., Sydnie, MDebra [address] [place] [address] 55 [phone] (Wo rk) 08/01/2022 Office Visit Transplant Tony Rubalcava M.B., Sydnie, MDebra [address] [place] [address] 55 [phone] (Wo rk) 08/01/2022 Clinical Support Transplant Tony Rubalcava M.B., Sydnie, MDebra [address] [place] [address] 55 [phone] (Wo rk) documented as of this encounter Visit Diagnoses Not on filedocumented in this encounter Additional Health Concerns Assessment Noted Time PHQ-9 Depression Total Score: 3 04/07/2021 9:37 AM CDT documented as of this encounter Care Teams Internet Database Specialist Relationship Specialty Start Date End Date Elsewhere, Pcp PCP - General 09/17/19 documented as of this encounter
--- OUTSIDE RECORDS SUMMARY | 2022-05-25 13:05 | XMS_ITS | Encounter Summary ---
:1960 Author Organization [facility] Address [address] [place] [address] Care Team Providers Name Role Phone Elsewhere, Pcp Primary Care Provider Unavailable Reason for Referral Outpatient (Routine) - Closed Specialty Diagnoses / Procedures Referred By Contact Refer red To Contact Internal Medicine / Diagnoses [facility]reteral Stent [facility] Internal M.DDavi Medicine [address] [place] [phone] Referral ID Status Reason Start Date Expiration Date Visits Requ ested Visits Authorized [id number] Closed 12/01/2021 12/01/2022 1 1 Encounter Details Date Type Department Care Team Description 11/30/2021 Orders Only Department of Urology Geraldo Spear eteral Stent Exchange in Catrachita Hernandez M.D. (Primary Dx) [address] [place] [phone] Social History Tobacco Use Types Packs/Day Years [...] How often do you attend amish or latter day 1 to 4 times [...] An Nicholas APRN, C.N.P., D.N.P., M.S.N. [address] [place] [address] 55 [phone] (Wo rk) 07/31/2022 Lab Laboratory Medicine Tony Rubalcava M. B., Ch.B., M.D. [address] [place] [address] 55 [phone] (Wo rk) 07/31/2022 Lab Laboratory Medicine Tony Rubalcava M. B., Ch.B., Mukund [address] [place] [address] 55 [phone] (Wo rk) 07/31/2022 Office Visit Transplant Tony Rubalcava M.B., Sydnie, Mukund [address] [place] [address] 55 [phone] (Wo rk) 07/31/2022 Appointment Radiology Tony Rubalcava M.B., Sydnie, Mukund [address] [place] [address] 55 [phone] (Wo rk) 08/01/2022 Office Visit Transplant Tony Rubalcava M.B., Sydnie, Mukund [address] [place] [address] 55 [phone] (Wo rk) 08/01/2022 Clinical Support Transplant Tony Rubalcava M.B., Sydnie, Mukund [address] [place] [address] 55 [phone] (Wo rk) Scheduled Referrals Name Type Priority Associated Diagnoses Order [facility] Internal Outpatient Referral Routine Ureteral Stent Ex pected: Medicine - SIDNEY Exchange 12/29/2021, consult (clinic) Expires: 03/01/2023 documented as of this encounter Visit Diagnoses Diagnosis Ureteral Stent Exchange - Primary documented in this encounter Additional Health Concerns Assessment Noted Time PHQ-9 Depression Total Score: 3 04/07/2021 9:37 AM CDT documented as of this encounter Care Teams Stud Master/Mistress Relationship Specialty Start Date End Date Elsewhere, Pcp PCP - General 09/17/19 documented as of this encounter
--- OUTSIDE RECORDS SUMMARY | 2022-05-25 13:05 | XMS_ITS | Encounter Summary ---
:1960 Author Organization [facility] Address [address] [place] [address] Care Team Providers Name Role Phone Elsewhere, [...] How often do you attend advent or jehovah's witness 1 to 4 times [...] An Nicholas APRN C.N.P., D.N.P., M.S.N. [address] [place] [address] [phone] (Wo rk) 07/31/2022 Lab Laboratory Medicine Tony Rubalcava M. B., Sydnie, MDebra [address] [place] [address] [phone] (Wo rk) 07/31/2022 Lab Laboratory Medicine Tony Rubalcava M. B., Sydnie, MDebra [address] [place] [address] [phone] (Wo rk) 07/31/2022 Office Visit Transplant Tony Rubalcava M.B., ChBurke, MDebra [address] [place] [address] [phone] (Wo rk) 07/31/2022 Appointment Radiology Tony Rubalcava M.B., ChBurke, MDebra [address] [place] [address] [phone] (Wo rk) 08/01/2022 Office Visit Transplant Tony Rubalcava M.B., Sydnie, MDebra [address] [place] [address] [phone] (Wo rk) 08/01/2022 Clinical Support Transplant RufinoeliTony M.B., Shashi Otoole. [address] [place], [place] 55 [phone] (Wo rk) documented as of this encounter Procedures Procedure Name Priority Date/Time Associated Comments Diagnosis DERMATOLOGY IMAGE Routine 09/22/2021 12:10 Result s for this EXAM PM CRAB PICKER procedure are i n the results section. documented in this encounter Results foot, left lateral heel 417 Mohs micrographic surgery-Dermatology Image Exam (09/22/2021 12:10 PM CRAB PICKER) Specimen (Source) Anatomical Collection Method Collection Time Re ceived Time Location / / Volume Laterality 09/22/2021 12:00 PM CRAB PICKER Narrative [facility]IMS - 09/22/2021 1:20 PM CRAB PICKER This order has been created and auto-finalized [...] documented as of this encounter Care Teams Agile Coach Relationship Specialty Start Date End Date Elsewhere, Pcp PCP - General 09/17/19 documented as of this encounter
--- OUTSIDE RECORDS SUMMARY | 2022-05-25 13:05 | XMS_ITS | Encounter Summary ---
:1960 Author Organization [facility] Address [address] [place] [id number] Care Team Providers Name Role Phone Elsewhere, Pcp Primary Care Provider Unavailable Reason for Visit Reason Comments Phone Contact Encounter Details Date Type Department Care Team Description 11/28/2021 Clinical Communication Kristal Anderson sa Phone Contact Center for A, R.N. Transplantation and [address] [place] [address] Clinical [facility] in [place], [place] [address] [place] [address] [place] [phone] (Work) [phone] Social History Tobacco Use Types Packs/Day Years [...] 12/23/2021 relatives? How often do you attend mandaen or sikh 1 to 4 times per year 12/23/2021 services? Do you belong to any clubs or organizations such No 12/23/2021 as mandaen groups, unions, fraternal or athletic groups, or [...] this encounter Miscellaneous Notes Telephone Encounter - Joanie Marc M.D. - 11/29/2021 5:14 PM CDT She has a failed transplant. Generally we would not do these PAMEs. Thanks, Joanie Marc Telephone Encounter - Vida Espinosa - 11/28/2021 2:44 PM CDT Date: 01/03 Provider: Amer Please place orders for upcoming HOWIE. Thank you! Telephone Encounter - Terry De La Cruz - 11/28/2021 1:34 PM CDT Gricel Valerio from [facility] called to try and coordinate scheduling the Kidney and Pancreas consult order for the pt to be seen on 12/27 or 01/03 when pt will be here in town. Please schedule and either call or skype Gricel once this has been scheduled, thanks! Gricel's call back: [phone] documented in this encounter Plan of Treatment Upcoming Encounters Date Type Specialty Care Team Description 06/01/2022 Telemedicine Pharmacy An Nicholas APRN, C.NDoc, WhitneyN.P., M.S.N. [address] [place] [address] [phone] (Wo rk) 07/31/2022 Lab Laboratory Medicine Tony Rubalcava M. B., Sydnie, MDebra [address] [place] [address] [phone] (Wo rk) 07/31/2022 Lab Laboratory Medicine Tony Ruablcava M. B., Sydnie, Mukund [address] [place] [address] [phone] (Wo rk) 07/31/2022 Office Visit Transplant Tony Rubalcava M.B., Sydnie, Mukund [address] [place] [address] [phone] (Wo rk) 07/31/2022 Appointment Radiology Tony Rubalcava M.B., Sydnie, MDebra [address] [place] [address] [phone] (Wo rk) 08/01/2022 Office Visit Transplant Tony Rubalcava M.B., Sydnie, MDebra [address] [place] [address] [phone] (Wo rk) 08/01/2022 Clinical Support Transplant Tony Rubalcava M.B., Sydnie, MDebra [address] [place] [address] [phone] (Wo rk) documented as of this encounter Visit Diagnoses Not on filedocumented in this encounter Additional Health Concerns Assessment Noted Time PHQ-9 Depression Total Score: 3 04/07/2021 9:37 AM CDT documented as of this encounter Care Teams Hop Worker Relationship Specialty Start Date End Date Elsewhere, Pcp PCP - General 09/17/19 documented as of this encounter
--- OUTSIDE RECORDS SUMMARY | 2022-05-25 13:05 | XMS_ITS | Encounter Summary ---
:1960 Author Organization [facility] Address [address] [place] [address] Care Team Providers Name Role Phone Elsewhere, Pcp Primary Care Provider Unavailable Reason for Referral Outpatient (Routine) - Closed Specialty Diagnoses / Procedures Referred By Contact Refer red To Contact Diagnoses Chronic Kidney Disease Stage 5 Glomerular Filtration Rate Less Than 15 (HCC) Transplant Renal (HCC) Screening Mammogram Breast Cancer Steve Martínez Jr., [facility] Procedures BI Breast Screening Bilateral with Tomosynthesis BI Breast Screening Bilateral D.O. 200 [place] [address] Referral ID Status Reason Start Date Expiration Date Visits Requ ested Visits Authorized [id number] Closed 08/31/2021 08/31/2022 1 1 S OUTFITTER Reason for Visit Outpatient (Routine) - Closed Specialty Diagnoses / Procedures Referred By Contact Refer red To Contact Diagnoses Chronic Kidney Disease Stage 5 Glomerular Filtration Rate Less Than 15 (HCC) Transplant Renal (HCC) Screening Mammogram Breast Cancer Steve Martínez Jr., [facility] Procedures BI Breast Screening Bilateral with Tomosynthesis BI Breast Screening Bilateral D.O. [address] [place], [place] [address] Referral ID Status Reason Start Date Expiration Date Visits Requ ested Visits Authorized [id number] Closed 08/31/2021 08/31/2022 1 1 Encounter Details Date Type Department Care Team Description 09/06/2021 Hospital Encounter Department of [place], Chronic Kidney Disease Stage 5 Glomerular Filtration Rate Less Than 15 ([facility]); Radiology in Steve Yap Jr., Transplant Jack al ([facility]); [place], [place] D.O. Screening Mammogram Breast Cancer ; [address] Screening [place] [phone] Social History Tobacco Use Types Packs/Day Years [...] How often do you attend yazidism or sabianism 1 to 4 times per [...] 09/26/2021 mg tablet mouth daily. 4.5 mg Sun-Sun-Sun, 4 mg other days documented as of this encounter Plan of Treatment Upcoming Encounters Date Type Specialty Care Team Description 06/01/2022 Telemedicine Pharmacy An Nicholas APRN, C.N.P., D.N.P., M.S.N. [address] [place] [address] 55 [phone] (Nicolas wen) 07/31/2022 Lab Laboratory Medicine Tony Rubalcava M. B., Ch.B., M.D. [address] [place] [address] 55 [phone] (Nicolas wen) 07/31/2022 Lab Laboratory Medicine Tony Rubalcava M. B., Ch.B., M.D. [address] [place] [address] 55 [phone] (Nicolas wen) 07/31/2022 Office Visit Transplant Tony Rubalcava M.B., Ch.B., M.D. [address] [place] [address] [phone] (Wo behzad) 07/31/2022 Appointment Radiology Tony Rubalcava M.B., Mukund Otoole [address] [place], [place] 55 [phone] (Nicolas wen) 08/01/2022 Office Visit Transplant Tony Rubalcava M.B., Mukund Otoole [address] [place], [place] 55 [phone] (Nicolas wen) 08/01/2022 Clinical Support Transplant Tony Rubalcava M.B., Mukund Otoole [address] [place], [place] 55 [phone] (Nicolas wen) documented as of this encounter Procedures Procedure Name Priority Date/Time Associated Comments Diagnosis BI BREAST SCREENING RAD - Routine 09/06/2021 1:35 Chronic Kidney Re sults for BILATERAL WITH (most inpatients PM SALES OUTFITTER Disease Stage 5 this p rocedure TOMOSYNTHESIS and all Glomerular are in the outpatients) Filtration Rate results Less Than 15 section. (HCC) Transplant Renal (HCC) Screening Mammogram Breast Cancer documented in this encounter Results BI Breast Screening Bilateral with Tomosynthesis (09/06/2021 1:35 PM SALES OUTFITTER) Anatomical Region Laterality Modality Breast, Breast Imaging RST LOS, Breast Imaging [facility], [place] Bilateral Mammography Imaging [facility] Specimen (Source) Anatomical Collection Method Collection Time Re ceived Time Location / / Volume Laterality 09/06/2021 4:04 PM SALES OUTFITTER Impressions 09/06/2021 4:07 PM SALES OUTFITTER Benign. RECOMMENDATION: ??Annual Screening Mammo gram ASSESSMENT: ??BI-RADS: 2: Benign. Narrative 09/06/2021 4:07 PM SALES OUTFITTER EXAM: ??BI BREAST SCREENING BILATERAL WITH TOMOSYNTHESIS Current study was evaluated with a Compu ter Aided Detection (CAD) system. INDICATION: ??Screening mammogram. COMPARISON: ??Prior exam(s) were availab le and reviewed for comparison. DENSITY: ??b. There are scattered areas of fibroglandular density. FINDINGS: ??No mammographic findings of malignancy. Benign calcifications both breasts. Procedure Note Samm Adame M.D. - 09/06/2021Formatt ing of this note might be different from the original. EXAM: BI BREAST SCREENING BILATERAL WITH TOMOSYNTHESIS Current study was evaluated with a Compu ter Aided Detection (CAD) system. INDICATION: Screening mammogram. COMPARISON: Prior exam(s) were available and reviewed for comparison. DENSITY: b. There are scattered areas of fibroglandular density. FINDINGS: No mammographic findings of ma lignancy. Benign calcifications both breasts. IMPRESSION: Benign. RECOMMENDATION: Annual Screening Mammogr am ASSESSMENT: BI-RADS: 2: Benign. Steve Martínez Jr. D.O. IMG BI PROCEDURES documented in this encounter Visit Diagnoses Diagnosis Chronic Kidney Disease Stage 5 Glomerula r Filtration Rate Less Than 15 (HCC) Transplant Renal (HCC) Screening Mammogram Breast Cancer documented in this encounter Additional Health Concerns Assessment Noted Time PHQ-9 Depression Total Score: 3 04/07/2021 9:37 AM CDT documented as of this encounter Care Teams Railway Signal Electrician Relationship Specialty Start Date End Date Elsewhere, Pcp PCP - General 09/17/19 documented as of this encounter
--- OUTSIDE RECORDS SUMMARY | 2022-05-25 13:05 | XMS_ITS | Encounter Summary ---
:1960 Author Organization [facility] Address [address] [place] [address] Care Team Providers Name Role Phone Elsewhere, Pcp Primary Care Provider Unavailable Reason for Referral Outpatient (Routine) - Closed Specialty Diagnoses / Procedures Referred By Contact Refer red To Contact Dermatology Araceli Ross M.D. [address] [address] Referral ID Status Reason Start Date Expiration Date Visits Requ ested Visits Authorized [id number] Closed 09/22/2021 09/22/2022 1 1 Scheduling Instructions Patient prefers a Sunday or ap pointment. THERAPIST Reason for Visit Reason Comments Squamous Cell Carcinoma Outpatient (Routine) - Closed Specialty Diagnoses / Procedures Referred By Contact Refer red To Contact Dermatology Diagnoses Squamous Cell Carcinoma In Situ Araceli Ross M.D. [facility] Procedures [facility] 1-[address] [place] [phone] Referral ID Status Reason Start Date Expiration Date Visits Requ ested Visits Authorized [id number] Closed 07/19/2021 07/19/2022 1 1 Encounter Details Date Type Department Care Team Description 09/22/2021 Procedure visit Department of Willie Ford M.D., M.S. Carcinoma In Situ [place], [place] [address] [place] [address] [place] [phone] Social History Tobacco Use Types Packs/Day Years [...] How often do you attend presybeterian or congregation 1 to 4 times per [...] Sign Reading Time Taken Comments Blood Pressure 163/97 09/22/2021 7:00 AM PHYS THERAPIST Pulse 80 09/22/2021 7:00 AM PHYS THERAPIST Temperature - - Respiratory Rate - - Oxygen Saturation - - Inhaled Oxygen Concentration - - Weight - - Height - - Body Mass Index - - documented in this encounter Procedure Notes Araceli Ross M.D. - 09/22/2021 8:00 AM CST PREOP INDICATION: REMOVAL. Date of Surgery: 09/22/2021 Surgeon: Dr. Ford Disability Insurance Claim Examiner: Dr. Ross Location: [facility]: Floor:16 Room:[facility] Visit Type: Outpatient PostOp Diagnosis: Squamous cell carcinoma in-situ Anatomic Location: Left heel Preoperative size: 2.7 x 1.1 cm [facility] number: [id number] Indication(s) for Mohs Micrographic Surgery: anatomic location where tissue conservation is criticaland immunosuppressed patient Procedure(s): Mohs micrographic surgery with guided closure. Procedural pause conducted to verify: correct patient identity, procedure to be performed and as applicable, correct side and site, correct patient position, and availability of implants, special equipment or special requirements. INFORMED CONSENT Discussed the risks, benefits, alternatives, and the necessity of other members of the healthcare team participating in the procedure. All questions answered and consent given. PATIENT EDUCATION Ready to learn, no apparent learning barriers were identified; learning preferences include listening. Explained diagnosis and treatment plan; patient expressed understanding of the content. Preoperative medications: None The anesthesia used was 1% lidocaine and 0.25% bupivacaine with 1:200,000 epinephrine. The skin was prepped in a sterile fashion with Hibiclens. Histologic tumor-free margins were obtained in one stages (one blocks) by standard Mohs micrographictechniques with the Mohs surgeon performing both the surgery and pathology. The final defect depth was down to level of: subcutaneous fat. Postoperative size: 2.8 x 1.6 cm. Anesthesia with 1% lidocaine with 1:200,000 epinephrine and another sterile prep were performed. Thewound was undermined, and hemostasis was obtained with electrocoagulation. To avoid anatomic distortion, a guiding suture was placed with 3-0 Vicryl suture. Postoperative length: 3.0 x 0.5 cm. Estimated blood loss: Minimal. Complications: None. Wound care: Routine. Postoperative medications: None THERAPIST documented in this encounter Consult Notes Araceli Ross M.D. - 09/22/2021 8:00 AM CST DERMATOLOGIC SURGERY CONSULTATION CHIEF COMPLAINT/PURPOSE OF VISIT Treatment of skin cancer HISTORY OF THE PRESENT ILLNESS Shabnam Wray is a 61 y.o. female who is referred by Araceli Ross M.D. for treatment of the following. FINAL DIAGNOSIS A. ??Left lateral heel, Skin shave biopsy: ??Squamous cell carcinoma in situ, involving biopsy border PAST MEDICAL HISTORY The dermatologic surgery preoperative information sheet was reviewed. Pertinent positives include history of previous nonmelanoma skin cancer, history of chronic immunosuppression due to renal transplant 2007, controlled hypertension, warfarin use with last INR yesterday of 1.9. She is also now on dialysis due to her failing transplanted kidney. Allergies Allergen Reactions ??? Epoetin Rolando GI intolerance ERYTHROPOIETIN- vomiting ??? Latex Other (see comments) Eczema ??? Pain Medicine Other (see comments) Patient unsure of what medication it was. Had a pain med given intravenously and got very nauseous Vitals: 09/22/21 0700 BP: (!) 163/97 Pulse: 80 PHYSICAL EXAM General: Awake, alert, in no acute distress Skin: A limited skin examination was performed. Biopsy site noted over the left heel. Available photos were reviewed to confirm site. IMPRESSION AND PLAN #1 Squamous cell carcinoma in-situ, left heel Patient presents today for further treatment of the above skin cancer. We discussed the diagnosis and potential treatment options. Given the location and pathology, we recommended treatment with Mohs micrographic surgery. After discussing benefits, alternatives, and risks including but not limited to pain, bleeding, infection, nerve damage, scar formation, and recurrence, patient elected to proceed. Wound care instructions and activity restrictions were reviewed. The patient understands there will be a scar at the site. See operative note and Mohs micrographic surgery map for further details. Briefly, the area was treated with Mohs micrographic surgery in one stage. After discussing reconstructiveoptions, defect was repaired in a guided fashion. No complications occurred. Recommend dilute vinegar soaks and diligent use of compression in addition to routine wound cares. Recommend the patient follow up in Dermatology clinic for a skin exam in 3 to 4 months or sooner as needed. PATIENT EDUCATION Ready to learn. No apparent learning barriers were identified. Learning preferences include listening. Explained diagnosis and treatment plan; patient/guardian of patient expressed understanding of thecontent. THERAPIST Associated attestation - Willie Ford M.D., M.S. - 09/22/2021 12:19 PM PHYS THERAPIST Assisted by: Dr. Ross. I have heard the history and seen and examined the patient with him/her. I agree with the impressionand plan as discussed in his/her note. I participated in the entire case, including outlining of the Mohs margins, review of the slides, and design and execution of the repair. For further details, please refer to the clinic note and operative note. documented in this encounter Plan of Treatment Upcoming Encounters Date Type Specialty Care Team Description 06/01/2022 Telemedicine Pharmacy An Nicholas APRN C.NDaviPDavi, D.N.P., M.S.N. [address] [place] [address] [phone] (Nicolas wen) 07/31/2022 Lab Laboratory Medicine Tony Rubalcava M. B., Sydnie, MElvia. [address] [place] [address] 55 [phone] (Nicolas wen) 07/31/2022 Lab Laboratory Medicine Tony Rubalcava M. B., ChBurke, MElvia. [address] [place] [address] 55 [phone] (Nicolas wen) 07/31/2022 Office Visit Transplant Tony Rubalcava M.B., Sydnie, MElvia. [address] [place] [address] 55 [phone] (Nicolas wen) 07/31/2022 Appointment Radiology Tony Rubalcava M.B., Sydnie, MDaviD. [address] [place] [address] 55 [phone] (Nicolas wen) 08/01/2022 Office Visit Transplant Tony Rubalcava M.B., Sydnie, Mukund [address] [place], [place] 55 [phone] (Wo rk) 08/01/2022 Clinical Support Transplant Tony Rubalcava M.B., Sydnie, Mukund [address] [place], [place] 55 [phone] (Wo rk) Scheduled Referrals Name Type Priority Associated Order Schedule Diagnoses Dermatology office Outpatient Referral Routine Ex pected: visit (clinic) 12/20/2021, Expires: 12/20/2022 documented as of this encounter Visit Diagnoses Diagnosis Squamous Cell Carcinoma In Situ documented in this encounter Administered Medications Inactive Administered Medications - up to 3 most recent administrations Medication Order MAR Action Action Date Dose Rate Site [id number] Given 09/22/2021 8:47 AM PHYS THERAPIST 4 mL 0.25%-1%-1:200,000 injection 2-25 mL 2-25 mL, injection, As needed, may repeat if the patient complains of pain/discomfort at the site up to 50 mL for entire procedure, Starting on Elizabeth 09/22/21 at 0748, For 1 day lidocaine-EPINEPHrine 1%-1:200,000 injection Given 09/22/2021 8: 24 AM PHYS THERAPIST 2 mL 2-50 mL (XYLOCAINE W/EPI) 2-50 mL, injection, As needed, may repeat if the patient complains of pain/discomfort at the site up to 50 mL for entire procedure, Starting on Elizabeth 09/22/21 at 0748, For 1 day documented in this encounter Additional Health Concerns Assessment Noted Time PHQ-9 Depression Total Score: 3 04/07/2021 9:37 AM CDT documented as of this encounter Care Teams Wood Carving Machine Operator Relationship Specialty Start Date End Date Elsewhere, Pcp PCP - General 09/17/19 documented as of this encounter
--- OUTSIDE RECORDS SUMMARY | 2022-05-25 13:05 | XMS_ITS | Encounter Summary ---
:1960 Author Organization [facility] Address [address] [place] [address] Care Team Providers Name Role Phone Elsewhere, [...] How often do you attend orthodoxy or zoroastrian 1 to 4 times per [...] An Nicholas APRN C.N.P., D.N.P., M.S.N. [address] [place] [address] [phone] (Wo rk) 07/31/2022 Lab Laboratory Medicine Tony Rubalcava M. B., Sydnie, MDebra [address] [place] [address] [phone] (Wo rk) 07/31/2022 Lab Laboratory Medicine Tony Rubalcava M. B., Sydnie, MDebra [address] [place] [address] [phone] (Wo rk) 07/31/2022 Office Visit Transplant Tony Rubalcava M.B., ChBurke, MDebra [address] [place] [address] [phone] (Wo rk) 07/31/2022 Appointment Radiology Tony Rubalcava M.B., ChBurke, MDebra [address] [place] [address] 55 [phone] (Wo rk) 08/01/2022 Office Visit Transplant Tony Rubalcava M.B., Sydnie, MDebra [address] [place] [address] [phone] (Wo rk) 08/01/2022 Clinical Support Transplant RufinoeliTony M.B., Shashi Otoole. [address] [place], [place] 55 [phone] (Wo rk) documented as of this encounter Procedures Procedure Name Priority Date/Time Associated Comments Diagnosis DERMATOLOGY IMAGE Routine 09/22/2021 12:05 Result s for this EXAM PM THREADING MACHINE FEEDER AUTOMATIC procedure are i n the results section. documented in this encounter Results foot, left lateral heel 417 Mohs micrographic surgery-Dermatology Image Exam (09/22/2021 12:05 PM THREADING MACHINE FEEDER AUTOMATIC) Specimen (Source) Anatomical Collection Method Collection Time Re ceived Time Location / / Volume Laterality 09/22/2021 12:00 PM THREADING MACHINE FEEDER AUTOMATIC Narrative IIMS - 09/22/2021 1:20 PM THREADING MACHINE FEEDER AUTOMATIC This order has been created and auto-finalized [...] documented as of this encounter Care Teams Research Hydraulic Engineer Relationship Specialty Start Date End Date Elsewhere, Pcp PCP - General 09/17/19 documented as of this encounter
--- OUTSIDE RECORDS SUMMARY | 2022-05-25 13:05 | XMS_ITS | Encounter Summary ---
:1960 Author Organization [facility] Address [address] [place] [address] Care Team Providers Name Role Phone Elsewhere, Pcp Primary Care Provider Unavailable Reason for Referral Outpatient (Routine) - Closed Specialty Diagnoses / Procedures Referred By Contact Refer red To Contact Urology Diagnoses Ureteral Stent Exchange Ayanna Hooker M.D., [facility] M.B.A. [address] [place] [phone] Referral ID Status Reason Start Date Expiration Date Visits Requ ested Visits Authorized [id number] Closed 11/23/2021 11/23/2022 1 1 Scheduling Instructions Please override at 4:00 pm for consent v isit with resident. Encounter Details Date Type Department Care Team Description 11/23/2021 Orders Only Department of Urology Geraldo Spear eteral Stent Exchange in Catrachita Hernandez M.D. (Primary Dx) [address] 200 [place] [phone] Social History Tobacco Use Types Packs/Day Years [...] How often do you attend lutheran or oriental orthodox 1 to 4 times [...] Nicholas APRN, C.N.P., D.N.P., M.S.N. [address] [place] [address] [phone] (Nicolas wen) 07/31/2022 Lab Laboratory Medicine Tony Rubaclava M. B., Ch.Maurice, M.Michelle. [address] [place] [address] 55 [phone] (Nicolas wen) 07/31/2022 Lab Laboratory Medicine Tony Rubaclava M. B., Syd[place], [place] [address] [place] [address] [phone] (Wo rk) 07/31/2022 Office Visit Transplant Tony Rubalcava M.B., [place], [place] [address] [place] [address] [phone] (Wo rk) 07/31/2022 Appointment Radiology Tony Rubalcava M.B., [place], [place] [address] [place] [address] [phone] (Wo rk) 08/01/2022 Office Visit Transplant Tony Rubalcava M.B., [place], [place] [address] [place] [address] [phone] (Wo rk) 08/01/2022 Clinical Support Transplant Tony Rubalcava M.B., [place], [place] [address] [place] [address] [phone] (Wo rk) Scheduled Referrals Name Type Priority Associated Diagnoses Order S [facility] Urology office Outpatient Referral Routine Ureteral Stent Expe cted: visit (clinic) Exchange 12/27/2021, Expires: 02/22/2023 documented as of this encounter Results SARS CoV-2 RNA, PCR, Varies Asymptomatic (01/03/2022 12:54 PM CDT) [facility] Method Time Signature SARS CoV-2 Swab, 01/03/2022 [...] Drug Administration an d is used per ball thread machine tender's instructions. Performance characteristics were verified by [facility] in a manner consistent with CLIA requirements. Visit the CDC website: https://www.cdc.g ov/coronavirus/ for the most recent guidelines on Coron avirus testing. Fact Sheet for Healthcare Providers: https://www.fda.gov/media/149031/downloa d Fact Sheet for Patients: https://www.fda.gov/media/234102/downloa d Specimen Anatomical Collection Method Collection Time Receive d Time (Source) Location / / Volume Laterality Varies 01/03/2022 12:54 01/03/2022 1:48 (Nasopharynx) PM CDT PM CDT Ayanna Hooker M.D., M.B.A. LAB MICROBIOLOGY - GENERAL ORDERABLES Performing Organization Address City/[facility] Phon e Number [facility] - [address] Bacterial Culture, Aerobic + Susc, Urine (12/27/2021 11:29 AM CDT) Component Value Ref Test Analysis Performed At Patholo gist Range Method Time Signature Urine Mixed Bibiana, 12/28/2021 DT Culture susceptibilities 8:15 AM CDT not performed per laboratory criteria. Specimen Anatomical Collection Method Collection Time Receive d Time (Source) Location / / Volume Laterality Urine (Urine, 12/27/2021 11:29 12/27/2021 1:14 Straight AM CDT PM CDT Catheter) Comment: Specimen Source Site: Urine Ayanna Hooker M.D., M.B.A. LAB MICROBIOLOGY - GENERAL ORDERABLES Performing Organization Address City/[facility] Phon e Number [facility] - [address] [place], [place] [address] [place], [place] [id number] [place] [address] documented in this encounter Visit Diagnoses Diagnosis Ureteral Stent Exchange - Primary documented in this encounter Additional Health Concerns Assessment Noted Time PHQ-9 Depression Total Score: 3 04/07/2021 9:37 AM CDT documented as of this encounter Care Teams Pinking Sewing Machine Operator Relationship Specialty Start Date End Date Elsewhere, Pcp PCP - General 09/17/19 documented as of this encounter
--- OUTSIDE RECORDS SUMMARY | 2022-05-25 13:05 | XMS_ITS | Encounter Summary ---
:1960 Author Organization [facility] Address [address] [place] [address] Care Team Providers Name Role Phone Elsewhere, Pcp Primary Care Provider Unavailable Encounter Details Date Type Department Care Team Description 11/22/2021 Clinical Communication Department of Urology Geraldo Spear in Catrachita Hernandez M.D. [address] 200 [place] [phone] Social History Tobacco Use Types Packs/Day Years [...] How often do you attend hindu or hinduism 1 to 4 times per [...] Miscellaneous Notes Telephone Encounter - Xi Valerio Josué - 11/22/2021 11:29 AM CDT Pt called in and wants to schedule her stent exchange, it has been a year. Please schedule, she has dialysis M, W, F so exch needs to be on Tues or Th. Pls issue any pre op orders. Thank you. documented in this encounter Plan of Treatment Upcoming Encounters Date Type Specialty Care Team Description 06/01/2022 Telemedicine Pharmacy An Nicholas APRN, C.N.P., D.N.P., M.S.N. [address] [place] [address] [phone] (Wo rk) 07/31/2022 Lab Laboratory Medicine Tony Rubalcava M. B., Ch.Miguelito., MElvia. [address] [place] [address] [phone] (Wo rk) 07/31/2022 Lab Laboratory Medicine Tony Rubalcava M. B., Ch.Miguelito., MDebra [address] [place] [address] [phone] (Wo rk) 07/31/2022 Office Visit Transplant Tony Rubalcava M.B., Syd[place], [place] [address] [place] [address] [phone] (Wo rk) 07/31/2022 Appointment Radiology Tony Rubalcava M.B., Syd[place], [place] [address] [place] [address] [phone] (Wo rk) 08/01/2022 Office Visit Transplant Tony Rubalcava M.B., Sydnie, [place] [address] [place] [address] [phone] (Wo rk) 08/01/2022 Clinical Support Transplant Tony Rubalcava M.B., Sydnie, MDebra [address] [place] [address] 55 [phone] (Wo rk) documented as of this encounter Visit Diagnoses Not on filedocumented in this encounter Additional Health Concerns Assessment Noted Time PHQ-9 Depression Total Score: 3 04/07/2021 9:37 AM CDT documented as of this encounter Care Teams Moisture Conditioner Operator Relationship Specialty Start Date End Date Elsewhere, Pcp PCP - General 09/17/19 documented as of this encounter
--- OUTSIDE RECORDS SUMMARY | 2022-05-25 13:05 | XMS_ITS | Encounter Summary ---
:1960 Author Organization [facility] Address [address] [place] [address] Care Team Providers Name Role Phone Elsewhere, Pcp Primary Care Provider Unavailable Encounter Details Date Type Department Care Team Description 09/26/2021 Orders Only Division of Nephrology and Zaire Candelario A PRN, Hypertension, Adventism C.N.P. [place], in [place], [address] [place] [address] [place] [phone] [place] [address] [phone] Social History Tobacco Use Types Packs/Day Years [...] How often do you attend temple or tenriism 1 to 4 times per [...] An Nicholas APRN C.N.P., D.N.P., M.S.N. [address] [place] [address] [phone] (Wo rk) 07/31/2022 Lab Laboratory Medicine Tony Rubalcava M. B., Sydnie, MDebra [address] [place] [address] [phone] (Wo rk) 07/31/2022 Lab Laboratory Medicine Tony Rubalcava M. B., ChBurke, MDebra [address] [place] [address] [phone] (Wo behzad) 07/31/2022 Office Visit Transplant Tony Rubalcava M.B., Sydnie, MDebra [address] [place] [address] [phone] (Wo behzad) 07/31/2022 Appointment Radiology Tony Rubalcava M.B., [place], [place] [address] [place] [address] [phone] (Wo rk) 08/01/2022 Office Visit Transplant Tony Rubalcava M.B., [place] [address] [place] [address] [phone] (Wo rk) 08/01/2022 Clinical Support Transplant Tony Rubalcava M.B., [place] [address] [place] [address] [phone] (Wo behzad) documented as of this encounter Visit Diagnoses Not on filedocumented in this encounter Additional Health Concerns Assessment Noted Time PHQ-9 Depression Total Score: 3 04/07/2021 9:37 AM CDT documented as of this encounter Care Teams Mail Order Biller Relationship Specialty Start Date End Date Elsewhere, Pcp PCP - General 09/17/19 documented as of this encounter
--- OUTSIDE RECORDS SUMMARY | 2022-05-25 13:06 | XMS_ITS | Encounter Summary ---
:1960 Author Organization [facility] Address [address] [place] [address] Care Team Providers Name Role Phone Elsewhere, Pcp Primary Care Provider Unavailable Encounter Details Date Type Department Care Team Description 07/01/2021 Documentation Division of Nephrology and Josr Martínez Hypertension in [place], ., D.O. [place] 200 [facility] 200 [place] [address] [phone] (Wo rk) Social History Tobacco Use Types [...] 12/23/2021 relatives? How often do you attend yarsanism or scientology 1 to 4 times per year 12/23/2021 services? Do you belong to any clubs or organizations such No 12/23/2021 as yarsanism groups, unions, fraternal or athletic groups, or [...] Progress Notes Steve Martínez Jr., D.O. - 07/01/2021 9:14 AM CST Dialysis visit-care coordination We are struggling on a bit with her blood pressure again, she is now hypotensive. We have previouslyused beta-blockade and even have had to use some amlodipine in the past. More recently we have been attempting to challenge her target weight, with varying success. In addition, she is having difficulties with sleep, her mood has change, and she has been quite emotional. She is having issues with coping with many the tragic days which have occurred this past year within her family. She has lost her stepfather, her mother, and had quite a bit of challenge with respect to her dialysis provision, as well as struggles with frustration around prolonged is taking for her to get Re transplanted. We are going to start sertraline 25 mg daily. She is on oral anticoagulation and I have asked her tonot increase her dose from her previous. Her INR has been usually between 1.5 and 2. We do not need her therapeutic we are using the warfarin simply to preserve her right upper extremity graft. This has been essential however for keeping her graft patent. We will be checking an INR next week. I warned her to not withdrawal from the medication once it has been initiated. We will schedule a taper if she is having side effects. She is not experiencing any suicidal ideation. R TAKE OFF TENDER documented in this encounter Plan of Treatment Upcoming Encounters Date Type Specialty Care Team Description 06/01/2022 Telemedicine Pharmacy Cristopher Ansarah Yap APRN, C.NDoc, WhitneyNDaviPDavi, M.S.N. [address] [place] [address] 55 [phone] (Wo rk) 07/31/2022 Lab Laboratory Medicine Tony Rubalcava M. B., Sydnie, MDebra [address] [place] [address] [phone] (Wo rk) 07/31/2022 Lab Laboratory Medicine Tony Rubalcava M. B., ChBurke, Muk[place] [address] [place] [address] 55 [phone] (Wo rk) 07/31/2022 Office Visit Transplant Tony Rubalcava M.B., Sydnie, MDebra [address] [place] [address] [phone] (Wo rk) 07/31/2022 Appointment Radiology Tony Rubalcava M.B., ChBurke, MDebra [address] [place] [address] [phone] (Wo rk) 08/01/2022 Office Visit Transplant Tony Rubalcava M.B., ChBurke, MDebra [address] [place] [address] [phone] (Wo behzad) 08/01/2022 Clinical Support Transplant Tony Rubalcava M.B., ChBurke, MDebra [address] [place] [address] 55 [phone] (Nicolas wen) documented as of this encounter Visit Diagnoses Not on filedocumented in this encounter Additional Health Concerns Assessment Noted Time PHQ-9 Depression Total Score: 3 04/07/2021 9:37 AM CDT documented as of this encounter Care Teams Pain Management Specialist Relationship Specialty Start Date End Date Elsewhere, Pcp PCP - General 09/17/19 documented as of this encounter
--- OUTSIDE RECORDS SUMMARY | 2022-05-25 13:06 | XMS_ITS | Encounter Summary ---
:1960 Author Organization [facility] Address [address] [place] [address] Care Team Providers Name Role Phone Elsewhere, Pcp Primary Care Provider Unavailable Reason for Referral Outpatient (Routine) - Closed Specialty Diagnoses / Procedures Referred By Contact Refer red To Contact Dermatology Diagnoses Squamous Cell Carcinoma In Situ Araceli Ross M.D. [facility] Procedures [facility] 1-4 sites 200 [place] [address] Referral ID Status Reason Start Date Expiration Date Visits Requ ested Visits Authorized [id number] Closed 07/19/2021 07/19/2022 1 1 HER MACHINE Encounter Details Date Type Department Care Team Description 07/19/2021 Orders Only Department of Araceli Ross Squamous Ce Dermatology in [place] Carcinoma In Situ [place], [place] (Primary Dx) [address] [place] [phone] Social History Tobacco Use Types Packs/Day Years [...] often do you attend oriental orthodox or buddhism 1 to 4 times per [...] An Nicholas APRN C.N.P., D.N.P., M.S.N. [address] [place] [address] [phone] (Nicolas wen) 07/31/2022 Lab Laboratory Medicine Tony Rubalcava M. B., Ch.B., M.D. [address] [place] [address] 55 [phone] (Nicolas wen) 07/31/2022 Lab Laboratory Medicine Tony Rubalcaav M. B., Ch.B., M.D. [address] [place] [address] 55 [phone] (Nicolas wen) 07/31/2022 Office Visit Transplant Tony Rubalcava M.B., Sydnie, [place] [address] [place] [address] [phone] (Wo rk) 07/31/2022 Appointment Radiology Tony Rubalcava M.B., Syd[place], [place] [address] [place] [address] [phone] (Wo rk) 08/01/2022 Office Visit Transplant Tony Rubalcava M.B., [place], [place] [address] [place] [address] [phone] (Wo rk) 08/01/2022 Clinical Support Transplant Tony Rubalcava M.B., Syd[place], [place] [address] [place] [address] [phone] (Wo rk) Scheduled Orders Name Type Priority Associated Diagnoses Order S chedule [facility] 1-4 sites Dermatology Routine Squamous Cell Carcinom a Expected: 08/02/2021 In Situ (Approximate), Expires: 2022 documented as of this encounter Visit Diagnoses Diagnosis Squamous Cell Carcinoma In Situ - Primar y documented in this encounter Additional Health Concerns Assessment Noted Time PHQ-9 Depression Total Score: 3 04/07/2021 9:37 AM CDT documented as of this encounter Care Teams Team Leader Surgery Relationship Specialty Start Date End Date Elsewhere, Pcp PCP - General 09/17/19 documented as of this encounter
--- OUTSIDE RECORDS SUMMARY | 2022-05-25 13:06 | XMS_ITS | Encounter Summary ---
:1960 Author Organization [facility] Address [address] [place] [address] Care Team Providers Name Role Phone Elsewhere, Pcp Primary Care Provider Unavailable Reason for Visit Transplant (Routine) - Closed Specialty Diagnoses / Procedures Referred By Contact Refer red To Contact Transplant Surgery / Diagnoses Pretransplant Recipient Evaluation Exam Chronic Kidney Disease Stage 5 GFR Less Than 15 Dialysis Dependent (HCC) [facility] 200 [place] [address] Referral ID Status Reason Start Date Expiration Date Visits Requ ested Visits Authorized [id number] Closed 03/01/2021 03/01/2022 1 1 Encounter Details Date Type Department Care Team Description 04/14/2021 Comprehensive Visit Ata Goins, Pretransplant Recipient Evaluation Exam; [place] elmira [place], Chronic Kidney Disease Stage 5 GFR Less Than 15 Dialysis Dependent (HCC) Transplantation and M.D. Clinical Regeneration [address] [place] [address] in [facility] [phone] [place] [address] [place], [place] (Work) [phone] Social History Tobacco Use Types Packs/Day Years [...] 12/23/2021 relatives? How often do you attend judaism or taoist 1 to 4 times per year 12/23/2021 services? Do you belong to any clubs or organizations such No 12/23/2021 as judaism groups, unions, fraternal or athletic groups, or [...] Sign Reading Time Taken Comments Blood Pressure 128/88 04/14/2021 10:10 AM CDT Pulse 79 04/14/2021 10:10 AM CDT Temperature 36.5 ??C (97.7 ??F) 04/14/2021 10:10 AM CDT Respiratory Rate - - Oxygen Saturation - - Inhaled Oxygen Concentration - - Weight 100 kg (220 lb 7.4 oz) 04/14/2021 10:10 AM CDT Height 164.4 cm (5' 4.72) 04/14/2021 10:10 AM CDT Body Mass Index 37 04/14/2021 10:10 AM CDT documented in this encounter Consult Notes Jatin Oh M.D. - 04/14/2021 10:00 AM CDT SUBJECTIVE REFERRAL SOURCE Dr. Cantrell. CHIEF COMPLAINT/REASON FOR VISIT Shabnam Wray is a 60 y.o. female who presents for evaluation of cardiovascular status. HISTORY OF PRESENT ILLNESS I interviewed and examined her and reviewed the record. She is a 60-year-old woman who underwent kidney transplantation in 2007 for end- stage renal disease.Her graft failed and she returned to dialysis in 2016. She has been awaiting retransplantation [id number]. She has had hypertension, dialysis stent thrombosis, depression, and recurrent urinary tract infection. He does not have exertional chest pain, dyspnea, PND, orthopnea, awareness of sustained palpitations, claudication or dependent edema. She quit smoking about 4 months ago. REVIEW OF SYSTEMS Negative except as noted. The following portions of the patient's history were reviewed and updated as appropriate: Allergies,current medications, family history, medical history, social history, surgical history and problem list. CURRENT MEDICATIONS Current Medications: ??? acetaminophen (TYLENOL) 500 mg tablet, Take 2 tablets (1,000 mg total) by mouth every 6 (six) hours as needed for pain. ??? amLODIPine (NORVASC) 5 mg tablet, Take 1 tablet (5 mg total) by mouth every evening. ??? Bystolic 10 mg tablet, TAKE 1 TABLET(10 MG) BY MOUTH DAILY ??? calcium carbonate (TUMS) 500 mg (200 mg calcium) chewable tablet, Chew 2 tablets 2 (two) times aday with meals. Lunch and dinner. ??? cefdinir (OMNICEF) 300 mg capsule, Take 1 capsule (300 mg total) by mouth as directed. Take 1 capsule every other day for 3 days. Do not take on the day of procedure. (Patient not taking: Reported on 04/07/2021 ) ??? gabapentin (NEURONTIN) 100 mg capsule, Take 3 capsules (300 mg total) by mouth as directed. 3 johnny 2 in PM ??? hydrocortisone (for_HYTONE) 2.5 % cream, Apply 1 application topically daily as needed (Eczema). ??? lidocaine-prilocaine (EMLA) 2.5-2.5 % cream, APPLY TOPICALLY TO DIALYSIS ACCESS SITE 30 MINUTES PRIOR TO TREATMENT--GENERIC FOR EMLA ??? multivitamin renal failure (DIALYVITE) 100-1 mg tablet, Take 1 tablet by mouth every evening. ??? mycophenolate (CELLCEPT) 250 mg capsule, TAKE 1 CAPSULE(250 MG) BY MOUTH TWICE DAILY. DO NOT BREAK, CUT, OR OPEN CAPSULES ??? predniSONE (DELTASONE) 5 mg tablet, TAKE 1 TABLET(5 MG) BY MOUTH DAILY ??? rosuvastatin (CRESTOR) 5 mg tablet, TAKE 1 TABLET BY MOUTH DAILY ??? sevelamer (RENVELA) 800 mg tablet, Take 1 tablet (800 mg total) by mouth daily with breakfast. Take with largest meal of the day ??? tacrolimus (PROGRAF) 1 mg capsule, Take 3 capsules (3 mg total) by mouth every morning AND 2 capsules (2 mg total) every evening. ??? warfarin (Coumadin) 2 mg tablet, Take 5 mg by mouth daily. 5 mg daily No current facility-administered medications for this visit. OBJECTIVE VITAL SIGNS There were no vitals filed for this visit. PHYSICAL EXAMINATION General: Comfortable, no acute distress. Skin: Warm and dry. Eyes: Anicteric. ENT: Palpable thyroid enlargement. Lymph: No cervical adenopathy. Heart: Normal S1, normal S2, no murmur, no gallop, no jugular venous distention, normal carotid upstroke without bruit. Lungs: Clear. Abdomen: Soft, nontender, smooth liver edge, no mass, no bruit, no palpable enlargement of the abdominal aorta. Joints: No deformity or inflammation. Mental: Mood and affect appropriate. Neurologic: Oriented, no gross motor deficits. Extremities: No edema. DIAGNOSTICS No results found for this or any previous visit (from the past 72 hour(s)). ASSESSMENT / PLAN #1 Pretransplant Recipient Evaluation Exam She does not have symptoms of heart failure angina electrocardiogram is nonspecific T-wave changes. The chest x-ray shows clear lungs but hyperinflation compatible with prior smoking. Blood pressure control is satisfactory. His dobutamine stress echocardiography is negative with an EF increasing from 62- 70%. Pulse luis angel from 61 up to 131 and systolic blood pressure luis angel from 155 up to 164. RV systolicpressure is estimated at 27. There is some left ventricular hypertrophy. Troponin is 32, total cholesterol 179, triglycerides 192, HDL 52, and LDL is 89. Fasting blood glucose is 99. Potassium is 4.6 and hemoglobin is 13.5. I would anticipate her risk of cardiac complications to be low. Further cardiac assessment is not warranted at this time. #2 Chronic Kidney Disease Stage 5 GFR Less Than 15 Dialysis Dependent (HCC) Jatin Oh M.D. documented in this encounter Plan of Treatment Upcoming Encounters Date Type Specialty Care Team Description 06/01/2022 Telemedicine Pharmacy An Nicholas APRN C.N.P., D.N.P., M.S.N. [address] [place] [address] [phone] (Nicolas wen) 07/31/2022 Lab Laboratory Medicine Tony Rubalcava M. B., [place], [place] [address] [place] [address] [phone] (Nicolas wen) 07/31/2022 Lab Laboratory Medicine Tony Rubalcava M. B., [place], [place] [address] [place] [address] [phone] ( rk) 07/31/2022 Office Visit Transplant Tony Rubalcava M.B., [place], MDebra [address] [place] [address] [phone] (Nicolas rk) 07/31/2022 Appointment Radiology Tony Rubalcava M.B., [place], MDebra [address] [place] [address] [phone] ( behzad) 08/01/2022 Office Visit Transplant Tony Rubalcava M.B., [place], MDebra [address] [place] [address] [phone] (Nicolas wen) 08/01/2022 Clinical Support Transplant Tony Rubalcava M.B., Syd[place], MElvia. [address] [place] [address] [phone] (Nicolas wen) documented as of this encounter Visit Diagnoses Diagnosis Pretransplant Recipient Evaluation Exam Chronic Kidney Disease Stage 5 GFR Less Than 15 Dialysis Dependent (HCC) documented in this encounter Additional Health Concerns Assessment Noted Time PHQ-9 Depression Total Score: 3 04/07/2021 9:37 AM CDT documented as of this encounter Care Teams Date Pitter Relationship Specialty Start Date End Date Elsewhere, Pcp PCP - General 09/17/19 documented as of this encounter
--- OUTSIDE RECORDS SUMMARY | 2022-05-25 13:06 | XMS_ITS | Encounter Summary ---
:1960 Author Organization [facility] Address 200 [place] [address] Care Team Providers Name Role Phone Elsewhere, Pcp Primary Care Provider Unavailable Encounter Details Date Type Department Care Team Description 07/13/2021 Orders Only Division of Nephrology and Neymar Martínez Hypertension in [place], ., D.O. [place] 200 [facility] 200 [place] [address] [phone] (Wo rk) Social History Tobacco Use Types [...] 12/23/2021 relatives? How often do you attend rastafari or nondenominational 1 to 4 times per year 12/23/2021 services? Do you belong to any clubs or organizations such No 12/23/2021 as rastafari groups, unions, fraternal or athletic groups, or [...] Nicholas APRN C.N.P., D.N.P., M.S.N. [address] [place] [address] 55 [phone] (Wo rk) 07/31/2022 Lab Laboratory Medicine Tony Rubalcava M. B., Sydnie, MDebra [address] [place] [address] [phone] (Wo rk) 07/31/2022 Lab Laboratory Medicine Tony Rubalcava M. B., ChBurke, MDebra [address] [place] [address] [phone] (Wo rk) 07/31/2022 Office Visit Transplant Tony Rubalcava M.B., Sydnie, MDebra [address] [place] [address] [phone] (Wo rk) 07/31/2022 Appointment Radiology Tony Rubalcava M.B., Ch.Mukund Richards [address] [place] [address] [phone] (Wo rk) 08/01/2022 Office Visit Transplant Tony Rubalcava M.B., Mukund Otoole [address] [place] [address] [phone] (Wo rk) 08/01/2022 Clinical Support Transplant Tony Rubalcava M.B., Sydnie, Mukund [address] [place] [address] [phone] (Wo rk) documented as of this encounter Visit Diagnoses Not on filedocumented in this encounter Additional Health Concerns Assessment Noted Time PHQ-9 Depression Total Score: 3 04/07/2021 9:37 AM CDT documented as of this encounter Care Teams Asw Specialist Relationship Specialty Start Date End Date Elsewhere, Pcp PCP - General 09/17/19 documented as of this encounter
--- OUTSIDE RECORDS SUMMARY | 2022-05-25 13:06 | XMS_ITS | Encounter Summary ---
:1960 Author Organization [facility] Address [address] [place] [address] Care Team Providers Name Role Phone Elsewhere, Pcp Primary Care Provider Unavailable Reason for Visit Reason Comments Med Refill Encounter Details Date Type Department Care Team Description 04/14/2021 Refill Division of Nephrology and Tanya, Neymar Yap Jr., Med Refill Hypertension in [facility] [address] [facility] [address] [place] [address] [place] [address] [phone] Social History Tobacco Use Types Packs/Day Years [...] How often do you attend anglican or pentecostal 1 to 4 times per [...] Nicholas APRN, C.N.P., D.N.P., M.S.N. [address] [place] [address] 55 [phone] (Nicolas wen) 07/31/2022 Lab Laboratory Medicine Tony Rubalcava M. B., ChDaviBDavi, M.D. [address] [place] [address] 55 [phone] (Nicolas wen) 07/31/2022 Lab Laboratory Medicine Tony Rubalcava M. B., Ch.BDavi, M.D. [address] [place] [address] [phone] (Nicolas wen) 07/31/2022 Office Visit Transplant Tony Rubalcava M.B., ChDaviBDavi, M.D. [address] [place] [address] [phone] (Nicolas wen) 07/31/2022 Appointment Radiology Tony Rubalcava M.B., Sydnie, Mukund [address] [place] [address] [phone] (Nicolas wen) 08/01/2022 Office Visit Transplant Tony Rubalcava M.B., Mukund Otoole [address] [place] [address] [phone] (Nicolas wen) 08/01/2022 Clinical Support Transplant Tony Rubalcava M.B., Sydnie, Mukund [address] [place] [address] [phone] (Nicolas wen) documented as of this encounter Visit Diagnoses Not on filedocumented in this encounter Additional Health Concerns Assessment Noted Time PHQ-9 Depression Total Score: 3 04/07/2021 9:37 AM CDT documented as of this encounter Care Teams Composition Mixer Relationship Specialty Start Date End Date Elsewhere, Pcp PCP - General 09/17/19 documented as of this encounter
--- OUTSIDE RECORDS SUMMARY | 2022-05-25 13:06 | XMS_ITS | Encounter Summary ---
:1960 Author Organization [facility] Address 200 [place] [address] Care Team Providers Name Role Phone Elsewhere, Pcp Primary Care Provider Unavailable Reason for Referral Outpatient (Routine) - Closed Specialty Diagnoses / Procedures Referred By Contact Refer red To Contact Diagnoses Hypertension Essential Primary Pretransplant Recipient Evaluation Exam Chronic Kidney Disease Stage 5 GFR Less Than 15 Dialysis Dependent (HCC) Jeni Cantrell M.D. [facility] Procedures Echo Stress 200 [place] [address] Referral ID Status Reason Start Date Expiration Date Visits Requ ested Visits Authorized [id number] Closed 03/01/2021 03/01/2022 1 1 Reason for Visit Outpatient (Routine) - Closed Specialty Diagnoses / Procedures Referred By Contact Refer red To Contact Diagnoses Hypertension Essential Primary Pretransplant Recipient Evaluation Exam Chronic Kidney Disease Stage 5 GFR Less Than 15 Dialysis Dependent (HCC) Jeni Cantrell M.D. [facility] Procedures Echo Stress 200 [place] [address] Referral ID Status Reason Start Date Expiration Date Visits Requ ested Visits Authorized [id number] Closed 03/01/2021 03/01/2022 1 1 Encounter Details Date Type Department Care Team Description 04/14/2021 Hospital Encounter Department of Silvana Cantrell Essential Primary ; Cardiovascular Diseases Jeni, Pret ransplant Recipient Evaluation Exam; in Kay Hernandez M.D. Chronic Kidney Disease Stage 5 GFR Less Than 15 Dialysis Dependent (HCC) 200 [facility] 200 [facility] [address] [facility] [place] [phone] [place] [address] Social History Tobacco Use Types Packs/Day Years [...] How often do you attend caodaism or faith 1 to 4 times per [...] as needed for pain. amLODIPine (NORVASC) 5 Take 1 tablet (5 mg 90 tablet 3 03/08/202007/08/2021 mg tablet total) by mouth every evening. Bystolic 10 mg TAKE 1 TABLET(10 MG) [...] not take on the day of procedure. gabapentin (NEURONTIN) Take 3 capsules (300 450 capsule 3 04/15/2021 100 mg capsule mg total) by mouth as directed. 3 in am 2 in PM lidocaine-prilocaine APPLY TOPICALLY TO 60 g 11 [...] 021 12/30/2021 5 mg tablet MOUTH DAILY sevelamer (RENVELA) 800 Take 1 tablet (800 90 tablet 3 08/202007/13/2021 mg tablet mg total) by mouth daily [...] An Nicholas APRN C.N.P., D.N.P., M.S.N. [address] [place] [address] [phone] (Wo rk) 07/31/2022 Lab Laboratory Medicine Tony Rubalcava M. B., Ch.B., M.D. [address] [place] [address] [phone] (Wo rk) 07/31/2022 Lab Laboratory Medicine Tony Rubalcava M. B., Ch.B., M.D. [address] [place] [address] [phone] (Wo rk) 07/31/2022 Office Visit Transplant Tony Rubalcava M.B., Ch.B., M.D. [address] [place] [address] [phone] (Wo rk) 07/31/2022 Appointment Radiology Tony Rubalcava M.B., Ch.B., M.D. [address] [place], [place] 55 [phone] (Wo rk) 08/01/2022 Office Visit Transplant Tony Rubalcava M.B., Mukund Otoole [address] [place], [place] 55 [phone] (Wo rk) 08/01/2022 Clinical Support Transplant Tony Rubalcava M.B., Mukund Otoole [address] [place], [place] 55 [phone] (Nicolas wen) documented as of this encounter Procedures Procedure Name Priority Date/Time Associated Diagnosis Comme nts ECHO STRESS 2D WITH Routine 04/14/2021 8:50 AM Hypertension Re sults for this COLOR AND LIMITED CDT Essential Prim alfie procedure are in DOPPLER Pretransplant the results Recipient Evaluation section . Exam Chronic Kidney Disease Stage 5 GFR Less Than 15 Dialysis Dependent (HCC) documented in this encounter Results ECHO STRESS 2D WITH COLOR AND LIMITED DOPPLER (04/14/2021 8:50 AM CDT) [facility] g[facility] Method Time Signature Ejection Fraction 62 MC CV EIMS Mid-Ascending Aorta 38 MC CV EIMS Wall Motion Score 1.00 MC CV EIMS Index LV Mass Index 121 MC CV EIMS LV End-Diastolic 48 MC CV EIMS Diameter LV End-Systolic 31 MC CV EIMS Diameter MV E Velocity 0.6 MC CV EIMS MV A Velocity 0.7 MC CV EIMS MV E/A 0.86 MC CV EIMS MV e' Velocity 0.05 MC CV EIMS Medial MV E/e' Medial 12.0 MC CV EIMS LV Interventricular 14 MC CV EIMS Septal Wall Thickness LV Posterior Wall 12 MC CV EIMS Thickness LV Relative Wall 50 MC CV EIMS Thickness Tricuspid Annular S? 0.15 MC CV EIMS TR Vmax 2.33 MC CV EIMS RA Pressure 5 MC CV EIMS RV Systolic Pressure 27 MC CV EIM S LA Volume Index 41 MC CV EIMS WMSI At Rest 1.00 MC CV EIMS WMSI At Peak Stress 1.00 MC CV EIMS Anatomical Region Laterality Modality Echocardiography Specimen (Source) Anatomical Collection Method Collection Time Re ceived Time Location / / Volume Laterality 04/14/2021 7:23 AM CDT Impressions 04/14/2021 9:55 AM CDT STRESS TEST: ??Dobutamine was infused from 5 mcg/kg/min to 40.0 mcg/kg/min. ??A dose of 2.00 mg of atropine was administered. ??A peak h eart rate of 131 BPM was achieved (82 % age-predicted maximal HR). ??The patient achieved a ma ximum heart rate of 131 BPM. ??The test was terminated due to peak dose given. ??The patient de veloped lightheadedness. ??The baseline ECG demonstrated sinus rhythm. ??APC's and VPC's present at stress. ??The stress ECG was negative for ischemia. Please see Nursing Notes for additional information. ??LEFT VENTRICLE: ??Normal left ventricular chamber size. ??Abnormal left ventricula r geometry with concentric left ventricular hypertrophy. Calculated 2-D linear left ventricular ejection fraction 62 %. ??No regional wall motion abnormalities. ??Normal left ventricular filling pressure. ??RIGHT VENTRICLE: ??Normal right ventricular chamber size by visual estim ate. ??Normal right ventricular systolic function. Estimated right ventricular systolic pre ssure 27 mmHg (right atrial pressure of 5 mmHg). ATRIA: ??Moderately enlarged left atrial size. ??Left atrial volume index 41 ml/m^2. ??Normal right atrial size. ??CARDIAC VALVES: ??T rileaflet aortic valve. ??Sclerotic aortic valve. ??No aortic valve regurgitation. ??Mildly thi ckened mitral valve. ??Trivial mitral valve regurgitation. ??Normal pulmonary valve. ??Trivial pulmonary valve regurgitation. ??Normal tricuspid valve. ??Trivial tricuspid raya ve regurgitation. ??OTHER ECHO FINDINGS: ??Normal inferior vena cava size with normal inspiratory c ollapse (>50%). ??Normal mid ascending aorta diameter (diameter 38 mm at mid level). ??No intr acardiac mass or thrombus identified. ??No pericardial effusion. For the complete report, see the [employer] Documents. Narrative 04/14/2021 9:55 AM CDT For the complete report, see the Order-L evel Documents. Final Impressions 1. Dobutamine stress echocardiogram nega tive for myocardial ischemia. 2. Ejection fraction response from 62 % at rest to 70 % at peak stress. 3. Left ventricular end-systolic volume decreased with stress. 4. No regional wall motion abnormalities with stress. 5. A peak heart rate of 131 BPM was achi eved (82 % age-predicted maximal HR). 6. Estimated right ventricular systolic pressure 27 mmHg (right atrial pressure of 5 mmHg). 7. Sclerotic aortic valve. 8. Abnormal left ventricular geometry wi th concentric left ventricular hypertrophy. Procedure Note Radha Basurto M.D. - 04/14/2021F ormatting of this note might be different from the original. For the complete report, see the Order-L evel Documents. Final Impressions 1. Dobutamine stress echocardiogram nega tive for myocardial ischemia. 2. Ejection fraction response from 62 % at rest to 70 % at peak stress. 3. Left ventricular end-systolic volume decreased with stress. 4. No regional wall motion abnormalities with stress. 5. A peak heart rate of 131 BPM was achi eved (82 % age-predicted maximal HR). 6. Estimated right ventricular systolic pressure 27 mmHg (right atrial pressure of 5 mmHg). 7. Sclerotic aortic valve. 8. Abnormal left ventricular geometry wi th concentric left ventricular hypertrophy. Findings STRESS TEST: Dobutamine was infused from 5 mcg/kg/min to 40.0 mcg/kg/min. A dose of 2.00 mg of atropine was administered. A peak hea rt rate of 131 BPM was achieved (82 % age-predicted maximal HR). The patient achieved a maxi mum heart rate of 131 BPM. The test was terminated due to peak dose given. The patient deve loped lightheadedness. The baseline ECG demonstrated sinus rhythm. APC's and VPC's present at stress. The stress ECG was negative for ischemia. Please see Nursing Notes for additional information. LEFT VENTRICLE: Normal left ventricular chamber size. Abnormal left ventricular geometry with concentric left ventricular hypertrophy. Calculated 2-D linear left ventricular ejection fraction 62 %. No regional wall motion abnormalities. Normal left ventricular f illing pressure. RIGHT VENTRICLE: Normal right ventricular chamber size by visual estim ate. Normal right ventricular systolic function. Estimated right ventricular systolic pre ssure 27 mmHg (right atrial pressure of 5 mmHg). ATRIA: Moderately enlarged left atrial s ize. Left atrial volume index 41 ml/m^2. Normal right atrial size. CARDIAC VALVES: Trile aflet aortic valve. Sclerotic aortic valve. No aortic valve regurgitation. Mildly thick ened mitral valve. Trivial mitral valve regurgitation. Normal pulmonary valve. T rivial pulmonary valve regurgitation. Normal tricuspid valve. Trivial tricuspid valve regurgitation. OTHER ECHO FINDINGS: Normal inferior vena cava size with normal inspiratory c ollapse (>50%). Normal mid ascending aorta diameter (diameter 38 mm at mid level). No intrac ardiac mass or thrombus identified. No pericardial effusion. For the complete report, see the Order-L evel Documents. Jeni Cantrell M.D. CV ECHO PROCEDURES documented in this encounter Visit Diagnoses Diagnosis Hypertension Essential Primary Pretransplant Recipient Evaluation Exam Chronic Kidney Disease Stage 5 GFR Less Than 15 Dialysis Dependent (HCC) documented in this encounter Administered Medications Inactive Administered Medications - up to 3 most recent administrations Medication Order MAR Action Action Date Dose Rate Site atropine injection 2 mg Given 04/14/2021 8:20 AM CDT 2 mg 2 mg, intravenous, Once, On Elizabeth 04/14/21 at 0900, For 1 dose DOBUTamine 1,000 mcg/mL in D5W 250 mL New Bag 04/14/2021 8:20 AM C DT 38 mg infusion 38 mg (DOBUTREX) 38 mg, intravenous, Once, On Elizabeth 04/14/21 at 0900, For 1 dose, Infusion rate: 5-40 mcg/kg/min - see protocol. 250 mg in 250 mL sodium chloride 0.9 % injection 10 mL Given 04/14/2021 7:30 AM CDT 10 mL 10 mL, intravenous, Once, On Elizabeth 04/14/21 at 0900, For 1 dose, Prior to and following infusion and between multiple consecutive infusions: sodium chloride 0.9 % injection documented in this encounter Additional Health Concerns Assessment Noted Time PHQ-9 Depression Total Score: 3 04/07/2021 9:37 AM CDT documented as of this encounter Care Teams Teller Manager Relationship Specialty Start Date End Date Elsewhere, Pcp PCP - General 09/17/19 documented as of this encounter
--- OUTSIDE RECORDS SUMMARY | 2022-05-25 13:06 | XMS_ITS | Encounter Summary ---
:1960 Author Organization [facility] Address [address] [place] [address] Care Team Providers Name Role Phone Elsewhere, Pcp Primary Care Provider Unavailable Reason for Visit Reason Comments Med Refill Encounter Details Date Type Department Care Team Description 07/08/2021 Refill Division of Nephrology and Zaire Candelario A PRN, Med Refill Hypertension, [facility], C.N.P. in [facility] bozena [address] [facility] [address] [place] [address] [place] [address] [phone] Social History Tobacco Use Types Packs/Day Years [...] often do you attend latter day or oriental orthodox 1 to 4 times [...] An Nicholas APRN, C.N.P., D.N.P., M.S.N. [address] [place] [address] [phone] (Nicolas wen) 07/31/2022 Lab Laboratory Medicine Tony Rubalcava M. B., ChDaviBDavi, M.Michelle. [address] [place] [address] 55 [phone] (Nicolas wen) 07/31/2022 Lab Laboratory Medicine Tony Rubalcava M. B., ChDaviBDavi, MElvia. [address] [place] [address] 55 [phone] (Nicolas wen) 07/31/2022 Office Visit Transplant Tony Rubalcava M.B., ChBurke, MElvia. [address] [place] [address] 55 [phone] (Nicolas wen) 07/31/2022 Appointment Radiology Tony Rubalcava M.B., Mukund Otoole [address] [place] [address] 55 [phone] (Wo rk) 08/01/2022 Office Visit Transplant Tony Rubalcava M.B., Mukund Otoole [address] [place] [address] [phone] (Wo rk) 08/01/2022 Clinical Support Transplant Tony Rubalcava M.B., Sydnie, Mukund [address] [place] [address] 55 [phone] (Wo rk) documented as of this encounter Visit Diagnoses Not on filedocumented in this encounter Additional Health Concerns Assessment Noted Time PHQ-9 Depression Total Score: 3 04/07/2021 9:37 AM CDT documented as of this encounter Care Teams Tin Flopper Relationship Specialty Start Date End Date Elsewhere, Pcp PCP - General 09/17/19 documented as of this encounter
--- OUTSIDE RECORDS SUMMARY | 2022-05-25 13:06 | XMS_ITS | Encounter Summary ---
:1960 Author Organization [facility] Address [address] [place] [address] Care Team Providers Name Role Phone Elsewhere, Pcp Primary Care Provider Unavailable Encounter Details Date Type Department Care Team Description 07/12/2021 Ancillary Procedure Department of Dermatology Social History [...] How often do you attend pentecostal or catholic 1 to 4 times per year [...] Nicholas APRN C.N.P., D.N.P., M.S.N. [address] [place] [address] 55 [phone] (Wo rk) 07/31/2022 Lab Laboratory Medicine Tony Rubalcava M. B., Sydnie, MDebra [address] [place] [address] [phone] (Wo rk) 07/31/2022 Lab Laboratory Medicine Tony Rubalcava M. B., Sydnie, MDebra [address] [place] [address] 55 [phone] (Wo rk) 07/31/2022 Office Visit Transplant Tony Rubalcava M.B., ChBurke, MDebra [address] [place] [address] [phone] (Wo rk) 07/31/2022 Appointment Radiology Tony Rubalcava M.B., ChBurke, MDebra [address] [place] [address] 55 [phone] (Wo rk) 08/01/2022 Office Visit Transplant Tony Rubalcava M.B., Sydnie, MDebra [address] [place] [address] [phone] (Wo rk) 08/01/2022 Clinical Support Transplant Tony Rubalcava M.B., Shashi Otoole. [address] [place], [place] 55 [phone] (Wo rk) documented as of this encounter Procedures Procedure Name Priority Date/Time Associated Comments Diagnosis DERMATOLOGY IMAGE Routine 07/12/2021 12:00 Result s for this EXAM AM WOODEN SHADE HARDWARE INSTALLER procedure are i n the results section. documented in this encounter Results Foot Biopsy-Dermatology Image Exam (07/12/2021 12:00 AM WOODEN SHADE HARDWARE INSTALLER) Specimen (Source) Anatomical Location Collection Method / Collectio n Time Received Time / Laterality Volume Narrative IIMS - 07/13/2021 12:55 PM WOODEN SHADE HARDWARE INSTALLER This order has been created and auto-finalized [...] documented as of this encounter Care Teams Magazine Hand Relationship Specialty Start Date End Date Elsewhere, Pcp PCP - General 09/17/19 documented as of this encounter
--- OUTSIDE RECORDS SUMMARY | 2022-05-25 13:06 | XMS_ITS | Encounter Summary ---
:1960 Author Organization [facility] Address [address] [place] [address] Care Team Providers Name Role Phone Elsewhere, Pcp Primary Care Provider Unavailable Encounter Details Date Type Department Care Team Description 07/20/2021 Orders Only Department of Araceli Ross Squamous Ce ll Dermatology in M.D. Carcinoma In Situ [place], [place] (Primary Dx) [address] [place] [address] Social History Tobacco Use Types Packs/Day Years [...] How often do you attend pentecostal or jewish 1 to 4 times per [...] An Nicholas APRN C.N.P., D.N.P., M.S.N. [address] [place] [address] [phone] (Nicolas wen) 07/31/2022 Lab Laboratory Medicine Tony Rubalcava M. B., ChBurke, MElvia. [address] [place] [address] 55 [phone] (Nicolas wen) 07/31/2022 Lab Laboratory Medicine Tony Rubalcava M. B., ChBurke, MDebra [address] [place] [address] 55 [phone] (Nicolas wen) 07/31/2022 Office Visit Transplant Tony Rubalcava M.B., ChBurke, MDebra [address] [place] [address] 55 [phone] ( behzad) 07/31/2022 Appointment Radiology Tony Rubalcava M.B., ChBurke, MElvia. [address] [place] [address] 55 [phone] ( behzad) 08/01/2022 Office Visit Transplant Tony Rubalcava M.B., Mukund Otoole [address] [place], [place] 55 [phone] (Wo rk) 08/01/2022 Clinical Support Transplant Tony Rubalcava M.B., Mukund Otoole [address] [place], [place] 55 [phone] (Wo rk) documented as of this encounter Results SARS Coronavirus-2 RNA, V Asymptomatic (09/19/2021 10:37 AM COMPUTER FORENSICS EXAMINER) [facility] Method Time Signature SARS-CoV-2 Swab, 09/20/2021 ECLR Specimen Nasopharynx 12:52 AM Source COMPUTER FORENSICS EXAMINER SARS CoV-2 Undetected Undetected 09/20/2021 ECLR RNA, TMA 12:52 AM COMPUTER FORENSICS EXAMINER Comment: SARS-CoV-2 RNA absent. This result does not rule out COVID-19 in the patient, as the sensitivity of the test depends o n the timing of the specimen collection and the quality of the specim en. Result should be correlated with patient's history and clinical presentat ion. ----ADDITIONAL INFORMATION---- This molecular amplification test was pe rformed using the Aptima SARS-CoV-2 assay ([employer] on the [employer] tem under emergency use authorization (EUA) by the U.S. Food and Drug Administ ration. Fact sheets for this EUA assay can be fo und at the following links: For Healthcare Providers: https://www.fd a.gov/media/682858/download For Patients: https://www.fda.gov/media/ 160877/download Specimen Anatomical Collection Method Collection Time Receive d Time (Source) Location / / Volume Laterality Varies 09/19/2021 10:37 09/19/2021 3:01 (Nasopharynx) AM COMPUTER FORENSICS EXAMINER PM COMPUTER FORENSICS EXAMINER Araceli Ross M.D. LAB MICROBIOLOGY - GENERAL O RDERABLES Performing Organization Address City/State/ZIP Code Phon e Number [facility]- [address] [place] [phone] [facility] [place] [address] [address] documented in this encounter Visit Diagnoses Diagnosis Squamous Cell Carcinoma In Situ - Primar y documented in this encounter Additional Health Concerns Assessment Noted Time PHQ-9 Depression Total Score: 3 04/07/2021 9:37 AM CDT documented as of this encounter Care Teams Sat Tutor Relationship Specialty Start Date End Date Elsewhere, Pcp PCP - General 09/17/19 documented as of this encounter
--- OUTSIDE RECORDS SUMMARY | 2022-05-25 13:06 | XMS_ITS | Encounter Summary ---
:1960 Author Organization [facility] Address [address] [place] [address] Care Team Providers Name Role Phone Elsewhere, Pcp Primary Care Provider Unavailable Reason for Referral MRI/CAT/PET Scan (Routine) - Closed Specialty Diagnoses / Procedures Referred By Contact Refer red To Contact Radiology Diagnoses Pretransplant Recipient Evaluation Exam Chronic Kidney Disease Stage 5 GFR Less Than 15 Dialysis Dependent (HCC) Jeni Cantrell M.D. [place] [facility] Procedures CT Abdomen Pelvis without IV Contrast [address] [place] [address] Referral ID Status Reason Start Date Expiration Date Visits Requ ested Visits Authorized [id number] Closed 04/14/2021 04/14/2022 1 1 Reason for Visit MRI/CAT/PET Scan (Routine) - Closed Specialty Diagnoses / Procedures Referred By Contact Refer red To Contact Radiology Diagnoses Pretransplant Recipient Evaluation Exam Chronic Kidney Disease Stage 5 GFR Less Than 15 Dialysis Dependent (HCC) Jeni Cantrell M.D. [place] [facility] Procedures CT Abdomen Pelvis without IV Contrast [address] [place], [place] [phone] Referral ID Status Reason Start Date Expiration Date Visits Requ ested Visits Authorized [id number] Closed 04/14/2021 04/14/2022 1 1 Encounter Details Date Type Department Care Team Description 04/14/2021 Hospital Encounter Department of Kamar Cantrell plant Recipient Evaluation Exam; Radiology, [place] Jeni, Chronic Kidn ey Disease Stage 5 GFR Less Than 15 Dialysis Dependent (HCC) Building, in M.D. [place], [place] [address] [place] [phone] Social History Tobacco Use Types Packs/Day Years [...] How often do you attend latter-day or denominational 1 to 4 times per year 12/23/2021 [...] minutes do you engage in exercise at is 0 min 12/23/2021 level? Stress Answer [...] An Nicholas APRN, C.N.P., D.N.P., M.S.N. [address] [place] [address] [phone] (Nicolas wen) 07/31/2022 Lab Laboratory Medicine Tony Rubalcava M. B., Ch.B., M.D. [address] [place] [address] [phone] (Nicolas wen) 07/31/2022 Lab Laboratory Medicine Tony Rubalcava M. B., Ch.B., M.D. [address] [place] [address] [phone] (Nicolas wen) 07/31/2022 Office Visit Transplant Tony Rubalcava M.B., ChDaviBDavi, M.D. [address] [place] [address] [phone] (Nicolas wen) 07/31/2022 Appointment Radiology Tony Rubalcava M.B., Mukund Otoole [address] [place], [place] 55 [phone] (Wo rk) 08/01/2022 Office Visit Transplant Tony Rubalcava M.B., Mukund [place]toole [address] [place] [address] [phone] (Wo behzad) 08/01/2022 Clinical Support Transplant Tony Rubalcava M.B., Mukund Otoole [address] [place], [place] 55 [phone] (Nicolas wen) documented as of this encounter Procedures Procedure Name Priority Date/Time Associated Diagnosis Comme nts CT ABDOMEN RAD - Routine 04/14/2021 2:57 Pretransplant Results fo r this PELVIS WITHOUT (most inpatients PM CDT Recipient Evaluation p rocedure are in IV CONTRAST and all Exam the results outpatients) Chronic Kidney section. Disease Stage 5 GFR Less Than 15 Dialysis Dependent (HCC) documented in this encounter Results CT Abdomen Pelvis without IV Contrast (04/14/2021 2:57 PM CDT) Anatomical Region Laterality Modality Abdomen, Pelvis, Abdominal RST LOS, N/A Comp uted Tomography, Computed Abdominal ARZ LOS, Abdominal FLA LOS Guzman ography Specimen (Source) Anatomical Collection Method Collection Time Re ceived Time Location / / Volume Laterality 04/14/2021 3:24 PM CDT Impressions 04/14/2021 4:08 PM CDT 1. Markedly atrophied bilateral lac vieux kidneys with small cystic lesions, likely representing acquired cystic disease. 2. 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 3. Dense atherosclerotic calcifications of the abdominal aorta and common and internal iliac arteries. Relatively spar ed calcifications in the bilateral external iliac arteries. Narrative 04/14/2021 4:08 PM CDT EXAM: ??CT ABDOMEN PELVIS WITHOUT IV CONTRAST. COMPARISON: ??Noncontrast CT dated 2015 and 05/23/2014. FINDINGS: Dense thick calcifications inv olving the abdominal aorta and bilateral common iliac arteries, involving > 90% c ircumference. The bilateral proximal internal iliac arteries are also similar ly involved. The bilateral external iliac arteries ar e relatively spared, demonstrating mild scattered thick calcifications involving < 25% circumference. The bilateral femoral artery calcifications involving 25-50% of the circumference. Marked atrophy of the bilateral lac vieux k idneys with diffuse renal parenchymal wasting and thinning. Increased number a nd size of the small cystic appearing lesions in both kidneys, including a hyp erdense cyst in the mid left kidney. These likely represent acquired cystic d isease. No suspicious solid lesions seen in the kidneys on this limited noncontra st study. A few tiny nonobstructing calyceal tip stones or papillary calcifi cations seen in the left kidney. Interval progression of parenchymal atro phy of the transplanted kidney in the right iliac fossa with a ureteral stent in place. The previously dilated, transplant renal collecting system is no w decompressed. Diffuse mural fatty deposition in the urinary bladder. Pelvi c phleboliths. Tiny hiatal hernia. Small surface calcif ications along the right liver dome. The liver, spleen, pancreas, and adrenal gla nds are otherwise unremarkable on this limited noncontrast study. Stable lobulated fat-containing ventral hernia, roughly measuring 10.4 x 5.8 cm (series 3 image 76). Calcified granuloma s in the right side anterior abdominal wall. Mural fatty deposition in the asce nding colon. Hysterectomy. Degenerative changes of the spine, SI joints, hip lui nts, and symphysis pubis. Small fat-containing left inguinal hernia. Procedure Note Heidy Graf M.D., Ph.D. - 04/14/2021For matting of this note might be different from the original. EXAM: CT ABDOMEN PELVIS WITHOUT IV CONTR AST. COMPARISON: Noncontrast CT dated 03/30/20 16 and 05/23/2014. FINDINGS: Dense thick calcifications inv olving the abdominal aorta and bilateral common iliac arteries, involving > 90% c ircumference. The bilateral proximal internal iliac arteries are also similar ly involved. The bilateral external iliac arteries ar e relatively spared, demonstrating mild scattered thick calcifications involving < 25% circumference. The bilateral femoral artery calcifications involving 25-50% of the circumference. Marked atrophy of the bilateral lac vieux k idneys with diffuse renal parenchymal wasting and thinning. Increased number a nd size of the small cystic appearing lesions in both kidneys, including a hyp erdense cyst in the mid left kidney. These likely represent acquired cystic d isease. No suspicious solid lesions seen in the kidneys on this limited noncontra st study. A few tiny nonobstructing calyceal tip stones or papillary calcifi cations seen in the left kidney. Interval progression of parenchymal atro phy of the transplanted kidney in the right iliac fossa with a ureteral stent in place. The previously dilated, transplant renal collecting system is no w decompressed. Diffuse mural fatty deposition in the urinary bladder. Pelvi c phleboliths. Tiny hiatal hernia. Small surface calcif ications along the right liver dome. The liver, spleen, pancreas, and adrenal gla nds are otherwise unremarkable on this limited noncontrast study. Stable lobulated fat-containing ventral hernia, roughly measuring 10.4 x 5.8 cm (series 3 image 76). Calcified granuloma s in the right side anterior abdominal wall. Mural fatty deposition in the asce nding colon. Hysterectomy. Degenerative changes of the spine, SI joints, hip lui nts, and symphysis pubis. Small fat-containing left inguinal hernia. IMPRESSION: 1. Markedly atrophied bilateral lac vieux k idneys with small cystic lesions, likely representing acquired cystic disease. 2. 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 3. Dense atherosclerotic calcifications of the abdominal aorta and common and internal iliac arteries. Relatively spar ed calcifications in the bilateral external iliac arteries. Jeni [place] CT PROCEDURES documented in this encounter Visit Diagnoses Diagnosis Pretransplant Recipient Evaluation Exam Chronic Kidney Disease Stage 5 GFR Less Than 15 Dialysis Dependent (HCC) documented in this encounter Additional Health Concerns Assessment Noted Time PHQ-9 Depression Total Score: 3 04/07/2021 9:37 AM CDT documented as of this encounter Care Teams Slip Feeder Relationship Specialty Start Date End Date Elsewhere, Pcp PCP - General 09/17/19 documented as of this encounter
--- OUTSIDE RECORDS SUMMARY | 2022-05-25 13:06 | XMS_ITS | Encounter Summary ---
:1960 Author Organization [facility] Address [address] [place] [address] Care Team Providers Name Role Phone Elsewhere, Pcp Primary Care Provider Unavailable Reason for Referral Outpatient (Routine) - Closed Specialty Diagnoses / Procedures Referred By Contact Refer red To Contact Diagnoses Chronic Kidney Disease Stage 5 Glomerular Filtration Rate Less Than 15 (HCC) Transplant Renal (HCC) Screening Mammogram Breast Cancer Steve [facility] Procedures BI Breast Screening Bilateral with Tomosynthesis BI Breast Screening Bilateral D.O. [address] [place], [place] [phone] Referral ID Status Reason Start Date Expiration Date Visits Requ ested Visits Authorized [id number] Closed 08/31/2021 08/31/2022 1 1 AR TRIMMER Encounter Details Date Type Department Care Team Description 08/31/2021 Orders Only Division of Nephrology Steve Martínez Kidney Disease Stage 5 Glomerular Filtration Rate Less Than 15 (HCC) (Primary Dx); and Hypertension in Fracisco Garcia D.O. Transplant Renal (HCC); [place], [place] [address] [email or web address] Screening Mammogram Breast Cancer [address] [place] [phone] Social History Tobacco Use Types Packs/Day Years [...] 12/23/2021 relatives? How often do you attend jew or jainism 1 to 4 times per year 12/23/2021 services? Do you belong to any clubs or organizations such No 12/23/2021 as jew groups, unions, fraternal or athletic groups, or [...] An Nicholas APRN, C.N.P., D.N.P., M.S.N. [address] [place], [place] [address] [phone] (Wo rk) 07/31/2022 Lab Laboratory Medicine Tony Rubalcava M. B., Mukund Otoole [address] [place] [address] [phone] (Nicolas wen) 07/31/2022 Lab Laboratory Medicine Tony Rubalcava M. B., Sydnie, Mukund [address] [place] [address] [phone] (Nicolas wen) 07/31/2022 Office Visit Transplant Tony Rubalcava M.B., Sydnie, Mukund [address] [place] [address] [phone] (Nicolas wen) 07/31/2022 Appointment Radiology Tony Rubalcava M.B., Sydnie, Mukund [address] [place] [address] [phone] (Nicolas wen) 08/01/2022 Office Visit Transplant Tony Rubalcava M.B., Sydnie, Mukund [address] [place] [address] [phone] (Nicolas wen) 08/01/2022 Clinical Support Transplant Tony Rubalcava M.B., Sydnie, MDebra [address] [place] [address] [phone] (Nicolas wen) documented as of this encounter Results BI Breast Screening Bilateral with Tomosynthesis (09/06/2021 1:35 PM COLLAR TRIMMER) Anatomical Region Laterality Modality Breast, Breast Imaging RST LOS, Breast Imaging ARZ [facility] st Bilateral Mammography Imaging FLA LOS Specimen (Source) Anatomical Collection Method Collection Time Re ceived Time Location / / Volume Laterality 09/06/2021 4:04 PM COLLAR TRIMMER Impressions 09/06/2021 4:07 PM COLLAR TRIMMER Benign. RECOMMENDATION: ??Annual Screening Mammo gram ASSESSMENT: ??BI-RADS: 2: Benign. Narrative 09/06/2021 4:07 PM COLLAR TRIMMER EXAM: ??BI BREAST SCREENING BILATERAL WITH TOMOSYNTHESIS [...] am ASSESSMENT: BI-RADS: 2: Benign. Steve Martínez Jr., D.O. IMG BI PROCEDURES documented in this encounter Visit Diagnoses Diagnosis Chronic Kidney Disease Stage 5 Glomerula r Filtration Rate Less Than 15 (HCC) - Primary Transplant Renal (HCC) Screening Mammogram Breast Cancer Chronic Kidney Disease Stage 5 Glomerula r Filtration Rate Less Than 15 (HCC) Transplant Renal (HCC) Screening Mammogram Breast Cancer documented in this encounter Additional Health Concerns Assessment Noted Time PHQ-9 Depression Total Score: 3 04/07/2021 9:37 AM CDT documented as of this encounter Care Teams Panel Raiser Operator Relationship Specialty Start Date End Date Elsewhere, Pcp PCP - General 09/17/19 documented as of this encounter
--- OUTSIDE RECORDS SUMMARY | 2022-05-25 13:06 | XMS_ITS | Encounter Summary ---
:1960 Author Organization [facility] Address [address] [place] [address] Care Team Providers Name Role Phone Elsewhere, Pcp Primary Care Provider Unavailable Encounter Details Date Type Department Care Team Description 07/19/2021 Orders Only Department of Araceli Ross, Contact Lukasz okeefe And (Suspected) Exposure To COVID-19 (Primary Dx); Dermatology in M.D. Encounter For Preprocedural Laboratory Examination (COVID-19) [place], [place] [address] [place] [address] Social History Tobacco Use Types Packs/Day Years [...] How often do you attend religion or druze 1 to 4 times per year 12/23/2021 [...] Nicholas APRN, C.N.P., D.N.P., M.S.N. [address] [place] [address] 55 [phone] (Wo rk) 07/31/2022 Lab Laboratory Medicine Tony Rubalcava M. B., Sydnie, MDebra [address] [place] [address] [phone] (Wo rk) 07/31/2022 Lab Laboratory Medicine Tony Rubalcava M. B., ChBurke, MDebra [address] [place] [address] 55 [phone] (Wo rk) 07/31/2022 Office Visit Transplant Tony Rubalcava M.B., Sydnie, MDebra [address] [place] [address] [phone] (Wo rk) 07/31/2022 Appointment Radiology Tony Rubalcava M.B., Sydnie, MDebra [address] [place] [address] [phone] (Wo rk) 08/01/2022 Office Visit Transplant Tony Rubalcava M.B., Mukund Otoole [address] [place], [place] 55 [phone] (Wo rk) 08/01/2022 Clinical Support Transplant Tony Rubalcava M.B., Sydnie, Mukund [address] [place], [place] 55 [phone] (Wo rk) documented as of this encounter Visit Diagnoses Diagnosis Contact With And (Suspected) Exposure To COVID-19 - Primary Encounter For Preprocedural Laboratory E xamination (COVID-19) documented in this encounter Additional Health Concerns Assessment Noted Time PHQ-9 Depression Total Score: 3 04/07/2021 9:37 AM CDT documented as of this encounter Care Teams Marklogic Developer Relationship Specialty Start Date End Date Elsewhere, Pcp PCP - General 09/17/19 documented as of this encounter
--- OUTSIDE RECORDS SUMMARY | 2022-05-25 13:06 | XMS_ITS | Encounter Summary ---
:1960 Author Organization [facility] Address [address] [place] [address] Care Team Providers Name Role Phone Elsewhere, Pcp Primary Care Provider Unavailable Encounter Details Date Type Department Care Team Description 06/01/2021 Clinical Communication Leslie Mason, Center for R.N., C.C.T.C. Transplantation and [phone] Clinical Regeneration in (Work) [place], [place] [address] [place] [phone] Social History Tobacco Use Types Packs/Day [...] How often do you attend congregation or oriental orthodox 1 to 4 times [...] Encounter - Shira Díaz R.N., C.C.T.C. - 06/02/2021 9:13 AM CDT Information Discussed Returned call to [email or web address] and got her voicemail. I left a message for her letting her know that the stent placement needs to be scheduled through Urology. It appears this was scheduled for last spring (November 2020) by Dr. Spear, but was postponed due to patient having Covid. I gave her the phone number for Urology scheduling to reschedule this stent placement ([phone]) and encouraged her to call to find out how to get this procedure scheduled. PLAN Disposition/Recommendation: Self care Information/Education: not applicable Caller agreeable to plan of care: did not speak to patient The following references were used: nursing clinical judgement Telephone Encounter - Telma Elena Barbra - 06/01/2021 10:33 AM CDT Ms. Wray would like a call back Patient called in to schedule a replacement stent placement for her kidney. She is having pressure she states. Would like to discuss this further with you. There are no orders for that. Please give felipe call back to discuss further. Thank you! Elena Hollis documented in this encounter Plan of Treatment Upcoming Encounters Date Type Specialty Care Team Description 06/01/2022 Telemedicine Pharmacy An Nicholas APRN, C.N.P., D.N.P., M.S.N. [address] [place] [address] [phone] (Wo rk) 07/31/2022 Lab Laboratory Medicine Tony Rubalcava M. B., Sydnie, Mukund [address] [place] [address] [phone] (Wo rk) 07/31/2022 Lab Laboratory Medicine Tony Rubalcava M. B., Sydnie, Mukund [address] [place] [address] [phone] (Wo rk) 07/31/2022 Office Visit Transplant Tony Rubalcava M.B., Sydnie, MDebra [address] [place] [address] [phone] (Wo rk) 07/31/2022 Appointment Radiology Tony Rubalcava M.B., ChBurke, Mukund [address] [place] [address] [phone] (Wo rk) 08/01/2022 Office Visit Transplant Tony Rubalcava M.B., Sydnie, MDebra [address] [place] [address] [phone] (Wo rk) 08/01/2022 Clinical Support Transplant Tony Rubalcava M.B., ChBurke, MDebra [address] [place] [address] [phone] (Wo rk) documented as of this encounter Visit Diagnoses Not on filedocumented in this encounter Additional Health Concerns Assessment Noted Time PHQ-9 Depression Total Score: 3 04/07/2021 9:37 AM CDT documented as of this encounter Care Teams Retail Account Manager Relationship Specialty Start Date End Date Elsewhere, Pcp PCP - General 09/17/19 documented as of this encounter
--- OUTSIDE RECORDS SUMMARY | 2022-05-25 13:06 | XMS_ITS | Encounter Summary ---
:1960 Author Organization [facility] Address [address] [place] [address] Care Team Providers Name Role Phone Elsewhere, Pcp Primary Care Provider Unavailable Encounter Details Date Type Department Care Team Description 06/10/2021 Hospital Encounter Department of GuilhermeTwin lowery Chro nic Kidney Disease; Laboratory Medicine M.D. Pretransplant Recipient Evaluation Exam and Pathology, [address] [place] [address] in [facility] [address] [place] [phone] [place] [address] (Work) [place], [place] [phone] (Fax) [phone] Social History Tobacco Use Types Packs/Day Years [...] 1 tablet (5 mg 90 tablet 3 08/202007/08/2021 mg tablet total) by mouth every evening. [...] Nicholas APRN, C.N.P., D.N.P., M.S.N. [address] [place] [address] [phone] (Nicolas wen) 07/31/2022 Lab Laboratory Medicine Tony Rubalcava M. B., Ch.BDavi, M.D. [address] [place] [address] [phone] (Nicolas wen) 07/31/2022 Lab Laboratory Medicine Tony Rubalcava M. B., [place], [place] [address] [place] [address] [phone] (Wo rk) 07/31/2022 Office Visit Transplant Tony Rubalcava M.B., [place], [place] [address] [place] [address] [phone] (Wo rk) 07/31/2022 Appointment Radiology Tony Rubalcava M.B., [place], [place] [address] [place] [address] [phone] (Wo rk) 08/01/2022 Office Visit Transplant Tony Rubalcava M.B., [place], [place] [address] [place] [address] [phone] (Wo rk) 08/01/2022 Clinical Support Transplant Tony Rubalcava M.B., [place], [place] [address] [place] [address] [phone] (Wo rk) documented as of this encounter Procedures Procedure Name Priority Date/Time Associated Diagnosis Comme nts HLA CLASS II SAB Routine 07/08/2021 5:00 AM Chronic Kidney Res ults for this ANTIBODY SCREEN ELECTRIC SERVICEMAN Disease procedure are in Pretransplant the results Recipient Evaluation section . Exam HLA CLASS I SAB Routine 07/08/2021 5:00 AM Chronic Kidney Resu lts for this ANTIBODY SCREEN ELECTRIC SERVICEMAN Disease procedure are in Pretransplant the results Recipient Evaluation section . Exam documented in this encounter Results HLA Class II SAB Antibody Screen (07/08/2021 5:00 AM ELECTRIC SERVICEMAN) [facility] Method Time Signature Class II SAB Positive Not Applicable 07/12/2021 DBB8 Overall 7:52 AM ELECTRIC SERVICEMAN Result Class II SAB 37 07/12/2021 DBB8 cPRA 7:52 AM ELECTRIC SERVICEMAN Comment: ----ADDITIONAL INFORMATION---- cPRA is calculated for either HLA class I or II (except DPB1) antibodies with a normalized MFI >2000 u sing published UNOS frequencies (http://optn.transplant.hrsa .gov). ??For convenience, all HLA antibodies with a normalized MFI >500 are listed in the specificity wilde. SAB DRB1 Specificity NONE 07/12/2021 7:52 AM ELECTRIC SERVICEMAN DBB8 SAB [id number] Specificity NONE 07/12/2021 7:52 A M ELECTRIC SERVICEMAN DBB8 SAB DQB1 Specificity see below 07/12/2021 7:52 AM ELECTRIC SERVICEMAN DBB8 Comment: 2(A*05:01;B*02:01)[8612] Format: Serologic Eq.(DQA1;DQB1 Mol. All jorge)[Normalized MFI] NOTE: Data is displayed in descending or kristi by Mean Fluorescence Intensity (MFI). ??Serologic equivalents can be di splayed multiple times for different molecular alleles. SAB DPB1 Specificity NONE 07/12/2021 7:52 AM ELECTRIC SERVICEMAN DBB8 Comment: ----ADDITIONAL INFORMATION---- Method: Luminex Flow Cytometry CLIA: [id number] ??CLIA Cloth Weigher: SHANTA LOYD MD,PhD Specimen Anatomical Collection Method Collection Time Receive d Time (Source) Location / / Volume Laterality Blood (Blood, 07/08/2021 5:00 AM 07/09/20 21 2:34 Venous) ELECTRIC SERVICEMAN PM ELECTRIC SERVICEMAN Resulting Agency Comment Mailed In Specimen Twin Vanegas M.D. LAB HLA ORDERABLES Performing Organization Address City/State/ZIP Code Phon e Number [facility] - [address] [place], [place] [address] [facility] [place] [place] [address] [facility] [address] HLA Class I SAB Antibody Screen (07/08/2021 5:00 AM ELECTRIC SERVICEMAN) [facility] Method Time Signature Class I SAB Positive Not Applicable 07/12/2021 DBB8 Overall 7:32 AM ELECTRIC SERVICEMAN Result Class I SAB 13 07/12/2021 DBB8 cPRA 7:32 AM ELECTRIC SERVICEMAN Comment: ----ADDITIONAL INFORMATION---- cPRA is calculated for either HLA class I or II (except DPB1) antibodies with a normalized MFI >2000 u sing published UNOS frequencies (http://optn.transplant.hrsa .gov). ??For convenience, all HLA antibodies with a normalized MFI >500 are listed in the specificity wilde. SAB A Specificity see below 07/12/2021 7:32 AM ELECTRIC SERVICEMAN DBB8 Comment: 32(32:01)[1745], 25(25:01)[1030], 31(31: 01)[1017], 30(30:01)[897], 24(24:03)[888], 23(23:01 )[829], 24(24:02)[711] Format: Serologic Eq.(A Mol. Allele)[Nor malized MFI] NOTE: Data is displayed in descending or kristi by Mean Fluorescence Intensity (MFI). ??Serologic equivalents can be di splayed multiple times for different molecular alleles. SAB B Specificity see below 07/12/2021 7:32 AM ELECTRIC SERVICEMAN DBB8 Comment: 51(51:01)[5149], 49(49:01)[2687], 51(51: 02)[2317], 78(78:01)[1858], 38(38:01)[1814], 63(15: 16)[1617], 59(59:01)[1603], 52(52:01)[1481], 75(15: 02)[1376], 77(15:13)[1302], 57(57:03)[1277], 53(53: 01)[1182], 57(57:01)[1144], 58(58:01)[888] Format: Serologic Eq.(B Mol. Allele)[Nor malized MFI] NOTE: Data is displayed in descending or kristi by Mean Fluorescence Intensity (MFI). ??Serologic equivalents can be di splayed multiple times for different molecular alleles. SAB C Specificity NONE 07/12/2021 7:32 AM ELECTRIC SERVICEMAN DBB8 Comment: ----ADDITIONAL INFORMATION---- Method: Luminex Flow Cytometry CLIA: [id number] ??CLIA Cloth Weigher: SHANTA LOYD MD,PhD Specimen Anatomical Collection Method Collection Time Receive d Time (Source) Location / / Volume Laterality Blood (Blood, 07/08/2021 5:00 AM 07/09/20 21 2:34 Venous) ELECTRIC SERVICEMAN PM ELECTRIC SERVICEMAN Resulting Agency Comment Mailed In Specimen Twin Vanegas M.D. LAB HLA ORDERABLES Performing Organization Address City/State/[facility] Code Phon e Number [facility] - [address] [place], [place] [address] [facility] DBB[address] [place] [address] [facility] [address] documented in this encounter Visit Diagnoses Diagnosis Chronic Kidney Disease Pretransplant Recipient Evaluation Exam documented in this encounter Additional Health Concerns Assessment Noted Time PHQ-9 Depression Total Score: 3 04/07/2021 9:37 AM CDT documented as of this encounter Care Teams Guitar Teacher Relationship Specialty Start Date End Date Elsewhere, Pcp PCP - General 09/17/19 documented as of this encounter
--- OUTSIDE RECORDS SUMMARY | 2022-05-25 13:06 | XMS_ITS | Encounter Summary ---
:1960 Author Organization [facility] Address [address] [place] [address] Care Team Providers Name Role Phone Elsewhere, Pcp Primary Care Provider Unavailable Reason for Visit Transplant (Routine) - Closed Specialty Diagnoses / Procedures Referred By Contact Refer red To Contact Transplant Surgery / Diagnoses Pretransplant Recipient Evaluation Exam Chronic Kidney Disease Stage 5 GFR Less Than 15 Dialysis Dependent (HCC) [facility] 200 [place] [address] Referral ID Status Reason Start Date Expiration Date Visits Requ ested Visits Authorized [id number] Closed 04/14/2021 04/14/2022 1 1 Encounter Details Date Type Department Care Team Description 07/12/2021 Comprehensive Visit Department of Araceli Ross Cancer Skin Squamous Cell Personal History (Primary Dx); Dermatology in [place] Tumor Skin Un certain Behavior; [place], [place] Chronic Kidney Disease Stage 5 GFR Less Than 15 Dialysis Dependent (HCC); [address] [facility] Ker[place] [phone] Social History Tobacco Use Types Packs/Day Years [...] How often do you attend orthodoxy or confucianist 1 to 4 times per [...] documented as of this encounter Consult Notes Araceli Ross M.D. - 07/12/2021 3:20 PM CST REFERRED BY Jeni Cantrell M.D. [address] [place] [phone] CHIEF COMPLAINT / REASON FOR VISIT Skin exam in the setting of chronic immunosuppression HISTORY OF PRESENT ILLNESS Ms. Shabnam Wray is a 60 y.o. female who presents today for the above concerns. She has history of chronic immunosuppression due to renal transplant in 2007. She is currently on CellCept and tacrolimus. She is here today for a skin exam. She has previously seen a local crab picker earlier thisyear for treatment of skin cancers as below. This is the first time being seen at [facility] Dermatology. She notes some itchy lesions involving the lower legs. She denies other lesions of concern today. 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 Skin: Examination was performed of the head (including face), neck, chest, abdomen, back, bilateral arms, bilateral legs, digits, buttocks. Exam is notable for Sierra type 2 to 3 skin. She has a well-healed surgical scar without evidence of recurrence involving the left nasal bridge and the left upper posterior arm. She has dermatoheliosis and purpura of the upper arms. She has several waxy brown stuck on appearing papules on the legs that appear irritated inflamed. She has a 2 x 1 cm keratoticpink plaque involving the left lateral heel. No other findings concerning for skin cancer. ASSESSMENT / PLAN #1 History of nonmelanoma skin cancer #2 Chronic immunosuppression due to organ transplant No evidence of recurrent skin cancer today. I discussed increased risk of skin cancer in the settingof chronic immunosuppression. Reviewed sun protection, the warning signs and symptoms of skin cancer, and the proper use of sunscreens. Recommend monthly self skin exams, photoprotection, and observation. Should the patient develop new, changing, or symptomatic skin lesions, recommend return visit forreevaluation. Follow up for full skin exam in six months. She will also work on obtaining the outside records from her previous skin cancers. #3 Inflamed seborrheic keratoses 3, left and right lower leg The benign nature of this lesion(s) was discussed with the patient. Given the inflamed nature of this lesion(s), its treatment is medically indicated. We treated a total of three lesion(s) with one 20-second freeze-thaw cycle of liquid nitrogen cryotherapy. The patient tolerated the procedure well. Aftercare instructions were provided in written and verbal form to the patient. Should any of these lesions recur, the patient should return for further evaluation. #4 Skin tumor of uncertain behavior, left lateral heel Differential: Seborrheic keratosis rule out NMSC. Partial Shave biopsy obtained. SHAVE BIOPSY CONSENT Discussed the risks, benefits, alternatives, and the necessity of other members of the healthcare team participating in the procedure. All questions answered and consent given. UNIVERSAL PROTOCOL Procedural pause conducted to verify: correct patient identity, procedure to be performed, and as applicable, correct side and site, correct patient position, and availability of implants, special equipment, or special requirements. PROCEDURE INFORMATION Shave biopsy. We explained the potential diagnosis and recommended that we obtain a biopsy. The risks and benefitsof the procedure were discussed, and the patient consented to these procedures. Using 1% lidocaine with epinephrine for local anesthesia, a shave biopsy was obtained from the location listed above. Biopsy was submitted to Dermatopathology for H&E. Special stains will be performed as indicated. The bleeding was well controlled with application of aluminum chloride. Dressing was applied, and wound care instructions were explained. Biopsy results and any further recommendations will be communicatedto the patient by letter or phone call. The patient expresses understanding and is in agreement with the plan. All questions answered. It was a pleasure seeing Ms. Shabnam Wray today. PATIENT EDUCATION Ready to learn. No apparent learning barriers were identified. Learning preferences include listening. Explained diagnosis and treatment plan; patient/guardian of patient expressed understanding of thecontent. Supervising store consultant immediately available but consultation not required. Araceli Ross M.D. RY PLANT OPERATOR documented in this encounter Plan of Treatment Upcoming Encounters Date Type Specialty Care Team Description 06/01/2022 Telemedicine Pharmacy An Nicholas APRN C.N.P., D.N.P., M.S.N. [address] [place] [address] [phone] (Nicolas wen) 07/31/2022 Lab Laboratory Medicine Tony Rubalcava M. B., Ch.B., M.Michelle. [address] [place] [address] [phone] (Nicolas wen) 07/31/2022 Lab Laboratory Medicine Tony Rubalcava M. B., Ch.B., M.D. [address] [place] [phone] (Nicolas wen) 07/31/2022 Office Visit Transplant Tony Rubalcava M.B., [place] [address] [place] [address] [phone] (Wo rk) 07/31/2022 Appointment Radiology Tony Rubalcava M.B., [place] [address] [place] [address] [phone] (Wo rk) 08/01/2022 Office Visit Transplant Tony Rubalcava M.B., [place] [address] [place] [address] [phone] (Wo rk) 08/01/2022 Clinical Support Transplant Tony Rubalcava M.B., [place] [address] [place] [address] [phone] (Wo rk) documented as of this encounter Procedures Procedure Name Priority Date/Time Associated Diagnosis Comme [facility] DERMATOPATHOLOGY Routine 07/12/2021 3:51 PM Tumor Skin Uncerta in Results for this SLURRY PLANT OPERATOR Behavior procedure are in Chronic Kidney the results Disease Stage 5 GFR section. Less Than 15 Dialysis Dependent (HCC) documented in this encounter Results Dermatopathology (07/12/2021 3:51 PM SLURRY PLANT OPERATOR) Component Value Ref Test Analysis Performed At [facility] Method Time Signature 07/19/2021 [facility] 11:06 AM SLURRY PLANT OPERATOR Report Daniel BelleDavi 07/19/2021 [facility] electronically Lenin, 11:06 AM signed by [place] SLURRY PLANT OPERATOR Gross Description Received in formalin labeled with the patient's n tank, 07/19/2021 [facility] medical record number, and left lateral heel is a 1.5 x 11:06 AM 1.3 x 0.1 cm pale alamo, previously inked blue skin shave SLURRY PLANT OPERATOR biopsy. ??Encompassing the entire skin surface is a pale-alamo hypopigmented-alamo, rough lesion. ?? Specimen is serially sectioned and submitted entirely in cassette A1. ??Grossed by AJB. Interpretation FINAL DIAGNOSIS 07/19/2021 PDRM A. 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 Specimen (Source) Anatomical Collection Method Collection Time Re ceived Time Location / / Volume Laterality Skin (Left 07/12/2021 3:51 PM lateral heel) SLURRY PLANT OPERATOR Narrative This result has an attachment that is no t available. Araceli Ross M.D. LAB PATH DERM ORDERABLES Performing Organization Address City/State/[facility] Code Phon e Number [facility] - [address] [place], [place] [address] [place] [address] [facility] [address] documented in this encounter Visit Diagnoses Diagnosis Cancer Skin Squamous Cell Personal Histo ry - Primary Tumor Skin Uncertain Behavior Chronic Kidney Disease Stage 5 GFR Less Than 15 Dialysis Dependent (HCC) Keratosis Seborrheic Inflamed documented in this encounter Additional Health Concerns Assessment Noted Time PHQ-9 Depression Total Score: 3 04/07/2021 9:37 AM CDT documented as of this encounter Care Teams Insurance Claim Representative Relationship Specialty Start Date End Date Elsewhere, Pcp PCP - General 09/17/19 documented as of this encounter
--- OUTSIDE RECORDS SUMMARY | 2022-05-25 13:06 | XMS_ITS | Encounter Summary ---
:1960 Author Organization [facility] Address [address] [place] [address] Care Team Providers Name Role Phone Elsewhere, Pcp Primary Care Provider Unavailable Encounter Details Date Type Department Care Team Description 05/04/2021 Orders Only Ata Dick Guilherme, Yvonne Bautista Kidney Disease; Center for M.D. Pretransplant Recipient Evaluation Exam Transplantation and [address] [place] [address] Clinical Regeneration in [place], [place] [address] [place] [address] [place] [address] (Work) [phone] Social History Tobacco Use Types Packs/Day Years [...] 12/23/2021 relatives? How often do you attend protestant or protestant 1 to 4 times per year 12/23/2021 services? Do you belong to any clubs or organizations such No 12/23/2021 as protestant groups, unions, fraternal or athletic groups, or [...] Nicholas APRN, C.N.P., D.N.P., M.S.N. [address] [place] [address] [phone] (Nicolas wen) 07/31/2022 Lab Laboratory Medicine Tony Rubalcava M. B., ChDaviBDavi, M.Michelle. [address] [place] [address] [phone] (Nicolas wen) 07/31/2022 Lab Laboratory Medicine Tony Rubalcava M. B., ChDaviBDavi, MElvia. [address] [place] [address] 55 [phone] (Nicolas wen) 07/31/2022 Office Visit Transplant Tony Rubalcava M.B., ChBurke, MElvia. [address] [place] [address] [phone] (Nicolas wen) 07/31/2022 Appointment Radiology Tony Rubalcava M.B., [place] [address] [place] [address] [phone] (Wo rk) 08/01/2022 Office Visit Transplant Tony Rubalcava M.B., [place] [address] [place] [address] [phone] (Wo rk) 08/01/2022 Clinical Support Transplant Tony Rubalcava M.B., [place] [address] [place] [address] [phone] (Wo rk) documented as of this encounter Visit Diagnoses Diagnosis Chronic Kidney Disease Pretransplant Recipient Evaluation Exam documented in this encounter Additional Health Concerns Assessment Noted Time PHQ-9 Depression Total Score: 3 04/07/2021 9:37 AM CDT documented as of this encounter Care Teams Deli Clerk Relationship Specialty Start Date End Date Elsewhere, Pcp PCP - General 09/17/19 documented as of this encounter
--- OUTSIDE RECORDS SUMMARY | 2022-05-25 13:06 | XMS_ITS | Encounter Summary ---
:1960 Author Organization [facility] Address [address] [place] [address] Care Team Providers Name Role Phone Elsewhere, Pcp Primary Care Provider Unavailable Encounter Details Date Type Department Care Team Description 07/06/2021 Orders Only Division of Nephrology and Candelario, Josué Quiles PRN, Hypertension, [facility] C.N.P. [facility], in [place], [address] [place] [address] Dom[address] [phone] [place] [address] [phone] Social History Tobacco Use Types Packs/Day Years [...] How often do you attend mandaeism or mandaen 1 to 4 times per [...] An Nicholas APRN, C.N.P., D.N.P., M.S.N. [address] [place] [phone] (Nicolas wen) 07/31/2022 Lab Laboratory Medicine Tony Rubalcava M. B., Ch.B., M.D. [address] [place] [address] [phone] (Nicolas wen) 07/31/2022 Lab Laboratory Medicine Tony Rubalcava M. B., Ch.B., M.D. [address] [place] [address] [phone] (Nicolas wen) 07/31/2022 Office Visit Transplant Tony Rubalcava M.B., Ch.B., M.D. [address] [place] [address] [phone] (Nicolas wen) 07/31/2022 Appointment Radiology Tony Rubalcava M.B., Ch.B., [place] [address] [place] [address] [phone] (Wo behzad) 08/01/2022 Office Visit Transplant Tony Rubalcava M.B., [place] [address] [place] [address] [phone] (Wo behzad) 08/01/2022 Clinical Support Transplant Tony Rubalcava M.B., [place], [place] [address] [place] [address] [phone] (Nicolas wen) documented as of this encounter Visit Diagnoses Not on filedocumented in this encounter Additional Health Concerns Assessment Noted Time PHQ-9 Depression Total Score: 3 04/07/2021 9:37 AM CDT documented as of this encounter Care Teams Cad Designer Relationship Specialty Start Date End Date Elsewhere, Pcp PCP - General 09/17/19 documented as of this encounter
--- OUTSIDE RECORDS SUMMARY | 2022-05-25 13:06 | XMS_ITS | Encounter Summary ---
:1960 Author Organization [facility] Address [address] [place] [address] Care Team Providers Name Role Phone Elsewhere, Pcp Primary Care Provider Unavailable Encounter Details Date Type Department Care Team Description 07/20/2021 Orders Only Division of Nephrology and Candelario, Josué Quiles PRN, Hypertension, [facility] C.N.P. [facility], in [place], [address] [place] [address] [address] [address] [place] [address] [phone] Social History Tobacco Use Types Packs/Day Years [...] How often do you attend rastafari or worship 1 to 4 times per [...] An Nicholas APRN, C.N.P., D.N.P., M.S.N. [address] [place] [address] [phone] (Nicolas wen) 07/31/2022 Lab Laboratory Medicine Tony Rubalcava M. B., Ch.B., M.D. [address] [place] [address] 55 [phone] (Nicolas wen) 07/31/2022 Lab Laboratory Medicine Tony Rubalcava M. B., Ch.B., M.D. [address] [place] [address] 55 [phone] (Nicolas wen) 07/31/2022 Office Visit Transplant Tony Rubalcava M.B., Ch.B., M.D. [address] [place] [address] [phone] (Nicolas wen) 07/31/2022 Appointment Radiology Tony Rubalcava M.B., Ch.B., [place] [address] [place] [address] [phone] (Wo behzad) 08/01/2022 Office Visit Transplant Tony Rubalcava M.B., [place] [address] [place] [address] [phone] (Wo behzad) 08/01/2022 Clinical Support Transplant Tony Rubalcava M.B., [place], [place] [address] [place] [address] [phone] (Nicolas wen) documented as of this encounter Visit Diagnoses Not on filedocumented in this encounter Additional Health Concerns Assessment Noted Time PHQ-9 Depression Total Score: 3 04/07/2021 9:37 AM CDT documented as of this encounter Care Teams Lifter/Driver Relationship Specialty Start Date End Date Elsewhere, Pcp PCP - General 09/17/19 documented as of this encounter
--- OUTSIDE RECORDS SUMMARY | 2022-05-25 13:06 | XMS_ITS | Encounter Summary ---
:1960 Author Organization [facility] Address [address] [place] [address] Care Team Providers Name Role Phone Elsewhere, Pcp Primary Care Provider Unavailable Reason for Visit Physical Therapy (Routine) - Closed Specialty Diagnoses / Procedures Referred By Contact Refer red To Contact Diagnoses Pretransplant Recipient Evaluation Exam Chronic Kidney Disease Stage 5 GFR Less Than 15 Dialysis Dependent (HCC) Jeni Cantrell M.D. [facility] Procedures PT Evaluate and treat [address] [place] [phone] Referral ID Status Reason Start Date Expiration Date Visits Requ ested Visits Authorized [id number] Closed 03/01/2021 03/01/2022 99 99 Encounter Details Date Type Department Care Team Description 07/12/2021 Comprehensive Visit Department of Robert Cantrell M.D. [address] [place] [phone] Pretransplant Recipient Evaluation Exam; Physical Medicine and Justen Kerr P.T., D.P.TDavi [address] [place] [phone] Chronic Kidney Disease Stage 5 GFR Less Than 15 Dialysis Dependent (HCC) Rehabilitation in [place], [place] [address] [place] [phone] Social History Tobacco Use Types Packs/Day Years [...] How often do you attend lutheran or moravian 1 to 4 times per [...] documented as of this encounter Consult Notes Justen Kerr P.T., D.P.T. - 07/12/2021 2:00 PM CST Consults Physical Therapy Musculoskeletal Outpatient Evaluation and Treatment By co-signing this note, the provider certifies the therapy being provided to this patient is reasonable and necessary for the diagnosis or treatment of this patient. SUBJECTIVE Patient's Name: Shabnam Wray Referring Provider: Jeni Cantrell M.D. Medical Diagnosis: 1. Pretransplant Recipient Evaluation Exam 2. Chronic Kidney Disease Stage 5 GFR Less Than 15 Dialysis Dependent (HCC) Reason for Referral: Pre transplant frailty assessment. Payor: MEDICARE / Plan: MEDICARE A AND B / Product Type: Medicare / eCaring Visit Count: 1 PT Next Certification Date: 10/10/21 PERTINENT MEDICAL / SURGICAL HISTORY: Patient Active Problem List Diagnosis ??? Chronic [...] Infection ??? Smoking Tobacco Use Personal History Past Surgical History: Procedure Laterality Date ??? CREATION ARTERIOVENOUS FISTULA UPPER EXTREMITY - OTHER Right 05/06/2019 Procedure: Right arm brachio-basilic AV graft using 6mm propaten graft; Surgeon: Guillermo Yu M.B.BDaviSDavi; Location: [facility] OR ??? CREATION OF BRACHIOBASILIC ARTERIOVENOUS FISTULA WITH TRANSPOSITION Left 01/09/2017 Creation of brachiobasilic arteriovenous fistula with transposition ??? CYSTOSCOPY N/A 06/12/2017 Cystoscopy ??? CYSTOURETHROSCOPY N/A 05/14/2018 Procedure: CYSTOURETHROSCOPY; Surgeon: Geraldo Spear M.D.; Location: [place] [address] OR ??? EMBOLECTOMY ARTERIOVENOUS FISTULA Right 05/31/2019 Procedure: Right brachio-axillary arterio-venous graft thromboembolectomy, Balloon angioplasty of venous anastomosis; Surgeon: Guillermo Yu M.B.BDaviSDavi; Location: [facility] OR ??? EXCHANGE URETERAL [...] OR WITHOUT INTERVENTION UPPER EXTREMITY; Surgeon: Guillermo uY M.B.BAubrey; Location: [facility] OR ??? HERNIA REPAIR [...] PLACEMENT 12/17/2014 balloon dilation and stent placement Shabnam Wray is a 60 y.o. female who presents to outpatient physical therapy for pre-transplant evaluation. Her symptoms consist of chronic kidney disease. Overall she reports her status remains the same. History of Present Illness: Chronic kidney disease, patient is currently on dialysis. She is a past transplant recipient approximately 12-13 years ago, kidney. She has been seen for pre transplant frailty assessment 1 time in the past August 2017. At that time she only met criteria for weight loss and maximized all other assessment components. Prior Function/Occupational Profile Dominant Hand: Right Lives With: Family ADL Assistance: Independent Home Living Type of Home: House Home Layout: Multi-level Home Access: Stairs to enter without rails Entrance Stairs: Number of Steps: 1 Patient goals: obtain transplant Patient Comments: Patient states that she does not formally exercise. However she stays extremely active taking care of grandchildren and taking care of her father. She lives in a multilevel home and is up and down the stairs quite frequently. Previous Treatments: Patient has been seen for pre transplant assessment 1 time in 2018. OBJECTIVE REVIEW OF SYSTEMS History obtained from chart review and the patient PHYSICAL EXAM Pain Assessment Pain Assessment: 0-10 Numeric Pain Intensity Scale Pain Score: 0 - No pain Fall Assessment: Fall in the last 12 months: No Are you fearful of falling?: No Balance/Posture/Physical Status: Balance Static Sitting-Balance: Good (Maintains balance without support) Static Standing-Balance: Good (Maintains balance without support) Balance Comments: Performs Romberg stance, modified tandem stance, tandem stance 10+ seconds with mild instability with tandem stance. Mobility/Transfers: Sit to Stand Transfers Level of Assistance: Independent Comments: Easily performs without use of upper extremities. Stand to Sit Transfers Level of Assistance: Independent Comments: Easily performs without use of upper extremities. Gait/Stairs: Gait Assessment/Training Surface: Even,Smooth/hard Device: No device Level of Assistance: Independent Assessment of Gait: Gait is normal today. Range of Motion: ROM - Upper Extremity Screen: Addressed, no concerns noted ROM - Lower Extremity Screen: Addressed, no concerns noted Strength:Strength - Upper Extremity Screen: Addressed, no concerns noted Strength - Lower Extremity Screen: Addressed, no concerns noted Special Tests: Pre-transplant Screen FRAILTY INDEX: Air Brake Operator Strength score: 27.2 kg right 0 = does not meet criteria 5-meter Walk score: 4.15 seconds No gait aid 0 = does not meet criteria Exhaustion: 0 = does not meet criteria Weight Loss: 0 = does not meet criteria Physical Activity: 0 = does not meet criteria Total Fried Frailty Score: 0 = not frail SHORT PHYSICAL PERFORMANCE BATTERY (SPPB) Balance Testing Ahgn-yr-Kihg Stand: 1 = Hold for 10 sec Semi tandem Stand: 1 = Hold for 10 sec Tandem Stand: 2 = Held for 10 sec Balance Test Score: Walk Test Score: 1.20 m/s 4 = greater than or equal to .83 m/sec Repeated Chair Stands Score: 6.9 seconds 4 = less than or equal to 11.19 sec SPPB Score: 12/12 (below 8 can predict future dysfunction and disability) TREATMENT Treatment today consisted of: -evaluation/assessment of patient current status and activity level. -performed pre transplant frailty assessment. For specific results please see above. -reviewed importance of initiating and progressing with a formal exercise program if she is able to continue to maintain her current level of fitness. At this time she elects to remain active with her normal activities of daily living. And this does seem to be maintaining her current level of function. Patient was educated that frailty has been associated with an increased risk of adverse health, including perioperative complications, increased hospital length of stay, disability and institutionalization. Discussed how a physical therapy program including aerobic exercise, strength, flexibility and balance training can help improve mobility and delay the onset of frailty. Home Exercise Program/Education: Continue maximizing her overall activities. Contact monitoring: PPE used during therapy: Therapist was wearing the following PPE throughout entire session: surgicalmask and eye protection Patient was wearing a mask during therapy session: yes Assessment Clinical Impression: Patient maximized components of the assessment today without difficulty. Patient is best categorized as not frail based on the Short Physical Performance Battery and FrailtyIndex. Patient demonstrates no functional impairments at this time. , Patient does not require any formal physical therapy intervention., Patient will continue with a home exercise routine independently. Rehab Potential: Ms. Wray has Good potential to achieve established physical therapy goals within the time frame outlined below, provided she actively participates in her physical therapy treatment plan and home program. Clinical Presentation: Stable Examination elements: 1-2 Clinical Decision Making: Low complexity clinical decision making Clinical Decision Making Complexity: Low complexity clinical decision making Functional Goals and Timeframes: PT Outpatient Goals PT Goal #1: Patient complete pre transplant frailty assessment in 1 session. Goal met Plan Ms. Wray was educated regarding evaluative findings, diagnosis, prognosis, potential risks and benefits of rehabilitation interventions. A collaborative effort was used to establish goals and planof care. She was informed of her right to make decisions regarding her care, including refusal of examination or treatment or selection of therapy services from another provider if desired. The treatment plan may be progressed or modified based upon her response to treatment. Treatment Plan: Plan: Discontinue PT PT Plan Comments: At this time no further formal therapy required. Start of Plan of Care: 07/12/2021 PT Next Certification Date: 10/10/21 Number of Visits:1 visits PT Duration: PT Frequency: One-time visit Treatment interventions may include: Treatment/Interventions: Self-care/home management Other PT Interventions: Pre Transplant frailty assessment Time Spent with Patient PT Eval - Low Complexity: 21 min Time Calculation Total Treatment Time (min): 21 min Justen Kerr P.T., D.P.T. R GRADER OPERATOR documented in this encounter Plan of Treatment Upcoming Encounters Date Type Specialty Care Team Description 06/01/2022 Telemedicine Pharmacy An Nicholas APRN, C.N.P., D.N.P., M.S.N. [address] [place] [address] [phone] (Wo rk) 07/31/2022 Lab Laboratory Medicine Tony Rubalcava M. B., Sydnie, Mukund [address] [place] [address] [phone] (Wo rk) 07/31/2022 Lab Laboratory Medicine Tony Rubalcava M. B., Sydnie, Mukund [address] [place] [address] [phone] (Wo rk) 07/31/2022 Office Visit Transplant Tony Rubalcava M.B., Sydnie, Mukund [address] [place] [address] [phone] (Wo rk) 07/31/2022 Appointment Radiology Tony Rubalcava M.B., Sydnie, Mukund [address] [place] [address] [phone] (Wo rk) 08/01/2022 Office Visit Transplant Tony Rubalcava M.B., Sydnie, Mukund [address] [place] [address] [phone] (Wo rk) 08/01/2022 Clinical Support Transplant Tony Rubalcava M.B., Sydnie, MDebra [address] [place] [address] [phone] (Wo rk) documented as of this encounter Visit Diagnoses Diagnosis Pretransplant Recipient Evaluation Exam Chronic Kidney Disease Stage 5 GFR Less Than 15 Dialysis Dependent (HCC) documented in this encounter Additional Health Concerns Assessment Noted Time PHQ-9 Depression Total Score: 3 04/07/2021 9:37 AM CDT documented as of this encounter Care Teams Artificial Snow Making Machine Operator Relationship Specialty Start Date End Date Elsewhere, Pcp PCP - General 09/17/19 documented as of this encounter
--- OUTSIDE RECORDS SUMMARY | 2022-05-25 13:06 | XMS_ITS | Encounter Summary ---
:1960 Author Organization [facility] Address [address] [place] [address] Care Team Providers Name Role Phone Elsewhere, Pcp Primary Care Provider Unavailable Encounter Details Date Type Department Care Team Description 06/09/2021 Orders Only Ata Dick Guilherme, Yvonne Bautista Kidney Disease; [facility] M[facility] Pretransplant Recipient Evaluation Exam Transplantation and [address] [place] [address] Clinical Regeneration in [place], [place] [phone] [place] [address] [place] [phone] (Work) [phone] Social History Tobacco Use Types Packs/Day Years [...] How often do you attend yarsani or roman catholic 1 to 4 times [...] Nicholas APRN, C.N.P., D.N.P., M.S.N. [address] [place] [address] [phone] (Nicolas wen) 07/31/2022 Lab Laboratory Medicine Tony Rubalcava M. B., ChDaviBDavi, M.Michelle. [address] [place] [address] [phone] (Nicolas wen) 07/31/2022 Lab Laboratory Medicine Toyn Rubalcava M. B., ChDaviBDavi, MElvia. [address] [place] [address] [phone] (Nicolas wen) 07/31/2022 Office Visit Transplant Tony Rubalcava M.B., ChBurke, MElvia. [address] [place] [address] [phone] (Nicolas wen) 07/31/2022 Appointment Radiology Tony Rubalcava M.B., Sydnie, Mukund [address] [place], [place] [phone] (Wo rk) 08/01/2022 Office Visit Transplant Tony Rubalcava M.B., Sydnie, Mukund [address] [place], [place] [phone] (Wo rk) 08/01/2022 Clinical Support Transplant Tony Rubalcava M.B., Sydnie, Mukund [address] [place], [place] [phone] (Wo rk) documented as of this encounter Results HLA Class II SAB Antibody Screen (07/08/2021 5:00 AM PIER RUNNER) [facility] Method Time Signature Class II SAB Positive Not Applicable 07/12/2021 DBB8 Overall 7:52 AM PIER RUNNER Result Class II SAB 37 07/12/2021 DBB8 cPRA 7:52 AM [facility]ER [facility]NER Comment: ----ADDITIONAL INFORMATION---- cPRA is calculated for either HLA class I or II (except DPB1) antibodies with a normalized MFI >2000 u sing published UNOS frequencies (http://optn.transplant.hrsa .gov). ??For convenience, all HLA antibodies with a normalized MFI >500 are listed in the specificity wilde. SAB DRB1 Specificity NONE 07/12/2021 7:52 AM PIER RUNNER DBB8 SAB [id number] Specificity NONE 07/12/2021 7:52 A M PIER RUNNER DBB8 SAB DQB1 Specificity see below 07/12/2021 7:52 AM [facility]ER [facility]NER DBB8 Comment: 2(A*05:01;B*02:01)[2112] Format: Serologic Eq.(DQA1;DQB1 Mol. All jorge)[Normalized MFI] NOTE: Data is displayed in descending or kristi by Mean Fluorescence Intensity (MFI). ??Serologic equivalents can be di splayed multiple times for different molecular alleles. SAB DPB1 Specificity NONE 07/12/2021 7:52 AM [facility]ER [facility]NER DBB8 Comment: ----ADDITIONAL INFORMATION---- Method: Luminex Flow Cytometry CLIA: [id number] ??CLIA Italian Teacher: SHANTA LOYD MD,PhD Specimen Anatomical Collection Method Collection Time Receive d Time (Source) Location / / Volume Laterality Blood (Blood, 07/08/2021 5:00 AM 07/09/20 2:34 Venous) [facility]ER RUNNER PM [facility]ER [facility]NER Resulting Agency Comment Mailed In Specimen Twin Vanegas M.D. LAB HLA ORDERABLES Performing Organization Address City/State/ZIP Code Phon e Number [facility] - [address] [place], [place] [address] [facility] DBB8 [place] [address] [facility] [address] HLA Class I SAB Antibody Screen (07/08/2021 5:00 AM PIER RUNNER) [facility] Method Time Signature Class I SAB Positive Not Applicable 07/12/2021 DBB8 Overall 7:32 AM PIER RUNNER Result Class I SAB 13 07/12/2021 DBB8 cPRA 7:32 AM PIER RUNNER Comment: ----ADDITIONAL INFORMATION---- cPRA is calculated for either HLA class I or II (except DPB1) antibodies with a normalized MFI >2000 u sing published UNOS frequencies (http://optn.transplant.hrsa .gov). ??For convenience, all HLA antibodies with a normalized MFI >500 are listed in the specificity wilde. SAB A Specificity see below 07/12/2021 7:32 AM [facility]ER RUNNER DBB8 Comment: 32(32:01)[1745], 25(25:01)[1030], 31(31: 01)[1017], 30(30:01)[897], 24(24:03)[888], 23(23:01 )[829], 24(24:02)[711] Format: Serologic Eq.(A Mol. Allele)[Nor malized MFI] NOTE: Data is displayed in descending or kristi by Mean Fluorescence Intensity (MFI). ??Serologic equivalents can be di splayed multiple times for different molecular alleles. SAB B Specificity see below 07/12/2021 7:32 AM [facility]ER RUNNER DBB8 Comment: 51(51:01)[0589], 49(49:01)[0277], 51(51: 02)[2317], 78(78:01)[1858], 38(38:01)[1814], 63(15: 16)[1617], 59(59:01)[1603], 52(52:01)[1481], 75(15: 02)[1376], 77(15:13)[1302], 57(57:03)[1277], 53(53: 01)[1182], 57(57:01)[1144], 58(58:01)[888] Format: Serologic Eq.(B Mol. Allele)[Nor malized MFI] NOTE: Data is displayed in descending or kristi by Mean Fluorescence Intensity (MFI). ??Serologic equivalents can be di splayed multiple times for different molecular alleles. SAB C Specificity NONE 07/12/2021 7:32 AM [facility]ER RUNNER DBB8 Comment: ----ADDITIONAL INFORMATION---- Method: Luminex Flow Cytometry CLIA: [id number] ??CLIA Italian Teacher: SHANTA LOYD MD,PhD Specimen Anatomical Collection Method Collection Time Receive d Time (Source) Location / / Volume Laterality Blood (Blood, 07/08/2021 5:00 AM 07/09/20 21 2:34 Venous) PIER RUNNER PM [facility]ER [facility]NER Resulting Agency Comment Mailed In Specimen Twin Vanegas M.D. LAB HLA ORDERABLES Performing Organization Address City/State/ZIP Code Phon e Number [facility] - [address] [place], [place] [address] [facility] DBB8 [place] [address] [facility] [address] documented in this encounter Visit Diagnoses Diagnosis Chronic Kidney Disease Pretransplant Recipient Evaluation Exam documented in this encounter Additional Health Concerns Assessment Noted Time PHQ-9 Depression Total Score: 3 04/07/2021 9:37 AM CDT documented as of this encounter Care Teams Wildlife Control Operator Relationship Specialty Start Date End Date Elsewhere, Pcp PCP - General 09/17/19 documented as of this encounter
--- OUTSIDE RECORDS SUMMARY | 2022-05-25 13:06 | XMS_ITS | Encounter Summary ---
:1960 Author Organization [facility] Address [address] [place] [address] Care Team Providers Name Role Phone Elsewhere, Pcp Primary Care Provider Unavailable Encounter Details Date Type Department Care Team Description 07/01/2021 Orders Only Division of Nephrology and Neymar Martínez Hypertension in [place], ., D.O. [place] 200 [facility] 200 [place] [phone] (Wo rk) Social History Tobacco Use Types [...] 12/23/2021 relatives? How often do you attend evangelical or baptism 1 to 4 times per year 12/23/2021 services? Do you belong to any clubs or organizations such No 12/23/2021 as evangelical groups, unions, fraternal or athletic groups, or [...] Nicholas APRN C.N.P., D.N.P., M.S.N. [address] [place] [address] [phone] (Wo rk) 07/31/2022 Lab Laboratory Medicine Tony Rubalcava M. B., Sydnie, MDebra [address] [place] [address] [phone] (Wo rk) 07/31/2022 Lab Laboratory Medicine Tony Rubalcava M. B., ChBurke, MDebra [address] [place] [address] [phone] (Wo rk) 07/31/2022 Office Visit Transplant Tony Rubalcava M.B., Sydnie, MDebra [address] [place] [address] [phone] (Wo rk) 07/31/2022 Appointment Radiology Tony Rubalcava M.B., Ch.Mukund Richards [address] [place] [address] [phone] (Wo rk) 08/01/2022 Office Visit Transplant Tony Rubalcava M.B., Mukund [place] [address] [place] [address] [phone] (Wo rk) 08/01/2022 Clinical Support Transplant Tony Rubalcava M.B., Sydnie, Mukund [address] [place] [address] [phone] (Wo rk) documented as of this encounter Visit Diagnoses Not on filedocumented in this encounter Additional Health Concerns Assessment Noted Time PHQ-9 Depression Total Score: 3 04/07/2021 9:37 AM CDT documented as of this encounter Care Teams In House Counsel Relationship Specialty Start Date End Date Elsewhere, Pcp PCP - General 09/17/19 documented as of this encounter
--- OUTSIDE RECORDS SUMMARY | 2022-05-25 13:07 | XMS_ITS | Encounter Summary ---
:1960 Author Organization [facility] Address [address] [place] [address] Care Team Providers Name Role Phone Elsewhere, Pcp Primary Care Provider Unavailable Reason for Visit Reason Comments Lung Screening Outpatient (Routine) - Closed Specialty Diagnoses / Procedures Referred By Contact Refer red To Contact Pulmonary Medicine Shanon Summers [place] M.D. [address] [place] [phone] Referral ID Status Reason Start Date Expiration Date Visits Requ ested Visits Authorized [id number] Closed 04/07/2021 04/07/2022 1 1 Encounter Details Date Type Department Care Team Description 04/08/2021 Virtual Visit Division of Shireen Summers M.D. [address] [place] [address] [phone] Smoking Tobacco Use Pulmonary Medicine Sary Gimenez R.N. [address] [place] [phone] Personal History in [place], (Primary Dx) [place] [address] [place] [address] [phone] Social History Tobacco Use Types Packs/Day Years [...] How often do you attend confucianism or yazdanism 1 to 4 times per year 12/23/2021 [...] - Inhaled Oxygen Concentration - - Weight 98 kg (216 lb 0.8 oz) 04/08/2021 1:22 PM CDT Height 163 cm (5' 4.17) 04/08/2021 1:22 PM CDT Body Mass Index 36.89 04/08/2021 1:22 PM CDT documented in this encounter Progress Notes Sary Gimenez R.N. - 04/08/2021 1:30 PM CDT [facility] Lung Screening Program Initial Eligibility Evaluation Shabnam Wray is a 60 y.o. female referred to the [facility] lung screening program for assessment to determine eligibility for enrollment. She was contacted today by phone and enrollment and exclusion criteria were reviewed. Patient reports that she has been smoking. She has a 33.75 pack-year smoking history. Social History Tobacco Use Smoking status: Current Every Day Smoker Packs/day: 0.75 Years: 45.00 Pack years: 33.75 Types: Cigarettes Start date: 01/29/1975 Exclusion criteria History of lung cancer within the past 5-years (still in active surveillance; consider screening after 5 years). No Poor lung function or other serious conditions that would not allow you to be a candidate for surgery if needed. No Need for continuous oxygen supplementation. No An unexplained weight loss of more than 15 lbs. in the prior 12 months/year. No Recent hemoptysis (coughing up blood). No A chest CT examination in the prior 12 months. No Current symptoms of an acute or resolving respiratory tract infection (best to reschedule at least 1month after symptom resolution). No Tammemagi 2012 ([id number]) Lung Cancer Risk Prediction Model Percent probability of lung cancer in 6 years calculated from today's answers = 2.652% Personal history of any cancer: yes, melanoma Final Eligibility Determination Patient meets inclusion criteria based on Tammemagi (PLCO M2012) risk calculation (i.e. Chance of developing lung cancer over next 6 years is equal to or above 1.3%). Uspstf score =1. Exclusion criteria do not apply. Patient will be scheduled for [id number] visit as part of shared decision making process. Patient was provided the appointment office number to call to schedule the CT scan. documented in this encounter Plan of Treatment Upcoming Encounters Date Type Specialty Care Team Description 06/01/2022 Telemedicine Pharmacy An Nicholas APRN, C.N.P., D.N.P., M.S.N. [address] [place] [address] [phone] (Wo rk) 07/31/2022 Lab Laboratory Medicine Tony Rubalcava M. B., Ch.B., MDebra [address] [place] [address] [phone] (Wo rk) 07/31/2022 Lab Laboratory Medicine Tony Rubalcava M. B., Sydnie, Mukund [address] [place] [address] [phone] (Wo rk) 07/31/2022 Office Visit Transplant Tony Rubalcava M.B., Sydnie, Mukund [address] [place] [address] [phone] (Wo behzad) 07/31/2022 Appointment Radiology Tony Rubalcava M.B., Sydnie, Mukund [address] [place] [address] [phone] (Wo rk) 08/01/2022 Office Visit Transplant Tony Rubalcava M.B., Sydnie, MDebra [address] [place] [address] [phone] (Wo rk) 08/01/2022 Clinical Support Transplant Tony Rubalcava M.B., Sydnie, MDebra [address] [place] [address] [phone] (Wo behzad) documented as of this encounter Visit Diagnoses Diagnosis Smoking Tobacco Use Personal History - P rimary documented in this encounter Additional Health Concerns Assessment Noted Time PHQ-9 Depression Total Score: 3 04/07/2021 9:37 AM CDT documented as of this encounter Care Teams Direct Of Real Estate Relationship Specialty Start Date End Date Elsewhere, Pcp PCP - General 09/17/19 documented as of this encounter
--- OUTSIDE RECORDS SUMMARY | 2022-05-25 13:07 | XMS_ITS | Encounter Summary ---
:1960 Author Organization [facility] Address [address] [place] [address] Care Team Providers Name Role Phone Elsewhere, Pcp Primary Care Provider Unavailable Encounter Details Date Type Department Care Team Description 04/07/2021 Hospital Encounter Department of Kamar Cantrell plant Recipient Evaluation Exam; Radiology, Katy Jeni, Chronic Kidn ey Disease Stage 5 GFR Less Than 15 Dialysis Dependent ([facility]) [facility], in .. [place], [place] [address] [facility] [address] [place] [phone] Social History Tobacco Use Types Packs/Day Years Used Date Smoking Tobacco: Every Day Cigarettes 0.5 30 S tarted: 01/29/1975 Smokeless Tobacco: Never Alcohol [...] How often do you attend taoist or jain 1 to 4 times per [...] Sig Dispensed Refills Start Date End Date hydrocortisone Apply 1 application 0 09/18/2017 (for_HYTONE) [...] Take 1 capsule (300 3 capsule 0 /2 01/202109/22/2021 mg capsuleIndications: mg total) by mouth Infection [...] Nicholas APRN, C.N.P., D.N.P., M.S.N. [address] [place] [address] [phone] (Wo rk) 07/31/2022 Lab Laboratory Medicine Tony Rubalcava M. B., Ch.BDavi, M.D. [address] [place] [address] [phone] (Wo rk) 07/31/2022 Lab Laboratory Medicine Tony Rubalcava M. B., Sydnie, Mukund [address] [place] [address] [phone] (Wo rk) 07/31/2022 Office Visit Transplant Tony Rubalcava M.B., Sydnie, Mukund [address] [place] [address] [phone] (Wo rk) 07/31/2022 Appointment Radiology Tony Rubalcava M.B., Sydnie, Mukund [address] [place] [address] [phone] (Wo rk) 08/01/2022 Office Visit Transplant Tony Rubalcava M.B., Sydnie, Mukund [address] [place] [address] [phone] (Wo rk) 08/01/2022 Clinical Support Transplant Tony Rubalcava M.B., Sydnie, Mukund [address] [place] [address] [phone] (Wo rk) documented as of this encounter Procedures Procedure Name Priority Date/Time Associated Diagnosis Comme nts DX CHEST AP OR RAD - Routine 04/07/2021 8:56 Pretransplant Results for this PA AND LATERAL 2 (most inpatients AM CDT Recipient Evaluation procedure are in VIEWS and all Exam the results outpatients) Chronic Kidney section. Disease Stage 5 GFR Less Than 15 Dialysis Dependent (HCC) documented in this encounter Results DX Chest AP or PA and Lateral 2 Views (04/07/2021 8:56 AM CDT) Anatomical Region Laterality Modality Chest, Thoracic RST LOS, Thoracic ARZ LOS, Thoracic N/A Digital Radiography FLA LOS Specimen (Source) Anatomical Collection Method Collection Time Re ceived Time Location / / Volume Laterality 04/07/2021 8:57 AM CDT Impressions 04/07/2021 9:00 AM CDT Since 01/28/19, new postsurgical changes right axilla, including a vascular stent. Aortic calcifications. H ealed left rib fractures. Chest otherwise negative. Narrative 04/07/2021 9:00 AM CDT EXAM: ??DX CHEST AP OR PA AND LATERAL 2 VIEWS Procedure Note Twin Winston M.D. - 04/07/2021Forma tting of this note might be different from the original. EXAM: DX CHEST AP OR PA AND LATERAL 2 EWS IMPRESSION: Since 01/28/19, new postsurgical changes right axilla, including a vascular stent. Aortic calcifications. H ealed left rib fractures. Chest otherwise negative. Jeni [facility] MARTHA documented in this encounter Visit Diagnoses Diagnosis Pretransplant Recipient Evaluation Exam Chronic Kidney Disease Stage 5 GFR Less Than 15 Dialysis Dependent (HCC) documented in this encounter Additional Health Concerns Assessment Noted Time PHQ-9 Depression Total Score: 3 04/07/2021 9:37 AM CDT documented as of this encounter Care Teams Residential Builder Relationship Specialty Start Date End Date Elsewhere, Pcp PCP - General 09/17/19 documented as of this encounter
--- OUTSIDE RECORDS SUMMARY | 2022-05-25 13:07 | XMS_ITS | Encounter Summary ---
:1960 Author Organization [facility] Address [address] [place] [address] Care Team Providers Name Role Phone Elsewhere, Pcp Primary Care Provider Unavailable Encounter Details Date Type Department Care Team Description 03/10/2021 Hospital Encounter Department of GuilhermeTwin lowery Chro nic Kidney Disease; Laboratory Medicine M.D. Pretransplant Recipient Evaluation Exam and Pathology, [address] [place] [address] in [facility] [phone] [place] [phone] [place] [address] (Work) [place], [place] [phone] (Fax) [phone] Social History Tobacco Use Types Packs/Day Years [...] How often do you attend episcopalian or religion 1 to 4 times per year 12/23/2021 [...] 09/26/2021 mg tablet mouth daily. 4.5 mg Mon-Sun-Sun, 4 mg other days documented as of this encounter Plan of Treatment Upcoming Encounters Date Type Specialty Care Team Description 06/01/2022 Telemedicine Pharmacy An Nicholas APRN, C.N.P., D.N.P., M.S.N. [address] [place] [address] [phone] (Wo rk) 07/31/2022 Lab Laboratory Medicine Tony Rubalcava M. B., Ch.BDavi, M.D. [address] [place] [address] [phone] (Wo rk) 07/31/2022 Lab Laboratory Medicine Tony Rubalcava M. B., Sydnie, Mukund [address] [place] [address] [phone] (Wo rk) 07/31/2022 Office Visit Transplant Tony Rubalcava M.B., Sydnie, Mukund [address] [place] [address] [phone] (Wo rk) 07/31/2022 Appointment Radiology Tony Rubalcava M.B., Sydnie, Mukund [address] [place] [address] [phone] (Wo rk) 08/01/2022 Office Visit Transplant Tony Rubalcava M.B., Sydnie, Mukund [address] [place] [address] [phone] (Wo rk) 08/01/2022 Clinical Support Transplant Tony Rubalcava M.B., Sydnie, Mukund [address] [place] [address] [phone] (Wo rk) documented as of this encounter Procedures Procedure Name Priority Date/Time Associated Diagnosis Comme nts HLA CLASS II SAB Routine 03/23/2021 5:15 AM Chronic Kidney Res ults for this ANTIBODY SCREEN CDT Disease procedure are in Pretransplant the results Recipient Evaluation section . Exam HLA CLASS I SAB Routine 03/23/2021 5:15 AM Chronic Kidney Resu lts for this ANTIBODY SCREEN CDT Disease procedure are in Pretransplant the results Recipient Evaluation section . Exam documented in this encounter Results HLA Class II SAB Antibody Screen (03/23/2021 5:15 AM CDT) [facility] Method Time Signature Class II SAB Positive Not Applicable 03/28/2021 DBB8 Overall 1:34 PM CDT Result Class II SAB 37 03/28/2021 DBB8 cPRA 1:34 PM CDT Comment: ----ADDITIONAL INFORMATION---- This PRA is a [facility] calculated PRA. PRA is based on the antigen frequency of the Tissue Typing patient a nd donor population. ??PRA reflects all antibodie s with a normalized value (MFI) above 300. SAB DRB1 Specificity NONE 03/28/2021 1:34 PM CDT DBB8 SAB [id number] Specificity NONE 03/28/2021 1:34 P M CDT DBB8 SAB DQB1 Specificity see below 03/28/2021 1:34 PM CDT DBB8 Comment: 2(A*05:01;B*02:01)[7349] Format: Serologic Eq.(DQA1;DQB1 Mol. All jorge)[Normalized MFI] NOTE: Data is displayed in descending or kristi by Mean Fluorescence Intensity (MFI). ??Serologic equivalents can be di splayed multiple times for different molecular alleles. SAB DPB1 Specificity NONE 03/28/2021 1:34 PM CDT DBB8 Comment: ----ADDITIONAL INFORMATION---- Method: Luminex Flow Cytometry CLIA: [id number] ??CLIA Ballet Dancer: SHANTA LOYD MD,PhD Specimen Anatomical Collection Method Collection Time Receive d Time (Source) Location / / Volume Laterality Blood (Blood, 03/23/2021 5:15 AM 03/24/20 Venous) CDT 11:40 AM CDT Twin Vanegas M.D. LAB HLA ORDERABLES Performing Organization Address City/State/ZIP Code Phon e Number [facility] - [address] [place], [place] [address] [facility] [place] [address] Laboratories-[facility] [address] HLA Class I SAB Antibody Screen (03/23/2021 5:15 AM CDT) [facility] Method Time Signature Class I SAB Positive Not Applicable 03/28/2021 DBB8 Overall 1:21 PM CDT Result Class I SAB 24 03/28/2021 DBB8 cPRA 1:21 PM CDT Comment: ----ADDITIONAL INFORMATION---- This PRA is a [facility] calculated PRA. PRA is based on the antigen frequency of the Tissue Typing patient a nd donor population. ??PRA reflects all antibodie s with a normalized value (MFI) above 300. SAB A Specificity see below 03/28/2021 1:21 PM CDT DBB8 Comment: 32(32:01)[2466], 25(25:01)[1583], 24(24: 03)[1367], 23(23:01)[1254], 24(24:02)[1126], 31(31: 01)[937], 30(30:01)[831] Format: Serologic Eq.(A Mol. Allele)[Nor malized MFI] NOTE: Data is displayed in descending or kristi by Mean Fluorescence Intensity (MFI). ??Serologic equivalents can be di splayed multiple times for different molecular alleles. SAB B Specificity see below 03/28/2021 1:21 PM CDT DBB8 Comment: 51(51:01)[5718], 49(49:01)[3449], 51(51: 02)[2933], 38(38:01)[2321], 63(15:16)[2182], 59(59: 01)[2102], 52(52:01)[2094], 78(78:01)[2043], 77(15: 13)[1697], 57(57:01)[1658], 57(57:03)[1645], 53(53: 01)[1506], 75(15:02)[1447], 58(58:01)[1255], 27(27: 05)[531] Format: Serologic Eq.(B Mol. Allele)[Nor malized MFI] NOTE: Data is displayed in descending or kristi by Mean Fluorescence Intensity (MFI). ??Serologic equivalents can be di splayed multiple times for different molecular alleles. SAB C Specificity NONE 03/28/2021 1:21 PM CDT DBB8 Comment: ----ADDITIONAL INFORMATION---- Method: Luminex Flow Cytometry CLIA: [id number] ??CLIA Ballet Dancer: SHANTA LOYD MD,PhD Specimen Anatomical Collection Method Collection Time Receive d Time (Source) Location / / Volume Laterality Blood (Blood, 03/23/2021 5:15 AM 03/24/20 21 Venous) CDT 11:40 AM CDT Twin Vanegas M.D. LAB HLA ORDERABLES Performing Organization Address City/State/[facility] Code Phon e Number [facility] - [address] [place], [place] [address] [facility] [address]BB[address] [place] [address] Laboratories-[facility] [address] documented in this encounter Visit Diagnoses Diagnosis Chronic Kidney Disease Pretransplant Recipient Evaluation Exam documented in this encounter Additional Health Concerns Assessment Noted Time PHQ-9 Depression Total Score: 4 01/30/2019 12:13 PM CD T documented as of this encounter Care Teams Audiology Technician Relationship Specialty Start Date End Date Elsewhere, Pcp PCP - General 09/17/19 documented as of this encounter
--- OUTSIDE RECORDS SUMMARY | 2022-05-25 13:07 | XMS_ITS | Encounter Summary ---
:1960 Author Organization [facility] Address [address] [place] [address] Care Team Providers Name Role Phone Elsewhere, Pcp Primary Care Provider Unavailable Reason for Visit Transplant (Routine) - Closed Specialty Diagnoses / Procedures Referred By Contact Refer red To Contact Transplant Surgery / Diagnoses Pretransplant Recipient Evaluation Exam Chronic Kidney Disease Stage 5 GFR Less Than 15 Dialysis Dependent (HCC[facility] M[facility] 200 [place] [phone] Referral ID Status Reason Start Date Expiration Date Visits Requ ested Visits Authorized [id number] Closed 03/01/2021 03/01/2022 1 1 Encounter Details Date Type Department Care Team Description 04/07/2021 Office Visit Kalani Chavez M.D. 200 [place] [phone] Depression Major Recurrent Full Remissio n (HCC) (Primary Dx); Debbie Mccormick M.D. [address] [place] [phone] Pretransplant Recipient Evaluation Exam; Transplantation and Chronic Kidney Disease Stage 5 GFR Less Than 15 Dialysis Dependent (HCC) Clinical Regeneration in [place], [place] 200 [place], [place] [phone] Social History Tobacco Use Types Packs/Day Years [...] 12/23/2021 relatives? How often do you attend spiritism or pentecostal 1 to 4 times per year 12/23/2021 services? Do you belong to any clubs or organizations such No 12/23/2021 as spiritism groups, unions, fraternal or athletic groups, or [...] documented as of this encounter Progress Notes Debbie Gutierrez M.D. - 04/07/2021 10:30 AM CDT Psychiatry Follow up Visit Shabnam Wray [id number] [facility] [phone] 60 y.o. History of Present Illness: I interviewed the patient and reviewed the [facility] record at the time of this evaluation. She ishere for annual waitlist visit. She continues to do well on dialysis. She denies depressed mood. Herinterest is intact. She notes that her sleep schedule is variable due being up at 4 am for her dialysis sessions. Her appetite is fairly good. Her energy level depends on whether she is at dialysis. Her concentration is good. She denies suicidal ideation. She denies excessive anxiety. She notes that her mother who had Alzheimer's and was in a intermediate had COVID and earlier this year. Health behaviors survey: Compliance with medications and medical care: Good Alcohol use: No Substance use: No Nicotine Use: No Caregiver availability: She has a good friend who will be here after transplant. Local psychiatric care: No Pain: No Opiate use: No Rating Scales: PHQ-9 Office Visit from 04/07/2021 in [facility] in [place], [place] Clinical Support from 01/30/2019 in [facility] Transplantation and Clinical Regeneration in [place], [place] Comprehensive Visit from 01/28/2019 in [facility] Transplantation and Clinical Regeneration in [place], [place] RST Conversion Encounter from 09/13/2017 in [facility]X RST NO MAPPING RST Conversion Encounter from 09/12/2017 in HX RST NO MAPPING PHQ-9 Total Score (max 27) 3 4 3 3 3 ABILIO-7 Total Score (max 21): 0 (04/05/211906) Audit Score: 0 (04/05/211907) Current Outpatient Medications Medication Sig Dispense Refill ??? acetaminophen (TYLENOL) 500 mg tablet Take 2 tablets (1,000 mg total) by mouth every 6 (six) hours as needed for pain. ??? amLODIPine (NORVASC) 5 mg tablet Take 1 tablet (5 mg total) by mouth every evening. 90 tablet 3 ??? Bystolic 10 mg tablet TAKE 1 TABLET(10 MG) BY MOUTH DAILY 90 tablet 3 ??? calcium carbonate (TUMS) 500 mg (200 mg calcium) chewable tablet Chew 2 tablets 2 (two) times a day with meals. Lunch and dinner. ??? cefdinir (OMNICEF) 300 mg capsule Take 1 capsule (300 mg total) by mouth as directed. Take 1 capsule every other day for 3 days. Do not take on the day of procedure. 3 capsule 0 ??? gabapentin (NEURONTIN) 100 mg capsule Take 3 capsules (300 mg total) by mouth as directed. 3 in am 2 in PM 450 capsule 3 ??? hydrocortisone (for_HYTONE) 2.5 % cream Apply 1 application topically daily as needed (Eczema). ??? lidocaine-prilocaine (EMLA) 2.5-2.5 % cream APPLY TOPICALLY TO DIALYSIS ACCESS SITE 30 MINUTES PRIOR TO TREATMENT--GENERIC FOR EMLA 60 g 11 ??? multivitamin renal failure (DIALYVITE) 100-1 mg tablet Take 1 tablet by mouth every evening. 30 tablet 11 ??? mycophenolate (CELLCEPT) 250 mg capsule TAKE 1 CAPSULE(250 MG) BY MOUTH TWICE DAILY. DO NOT BREAK, CUT, OR OPEN CAPSULES 180 capsule 3 ??? predniSONE (DELTASONE) 5 mg tablet TAKE 1 TABLET(5 MG) BY MOUTH DAILY 90 tablet 3 ??? rosuvastatin (CRESTOR) 5 mg tablet TAKE 1 TABLET BY MOUTH DAILY 90 tablet 3 ??? sevelamer (RENVELA) 800 mg tablet Take 1 tablet (800 mg total) by mouth daily with breakfast. Take with largest meal of the day 90 tablet 3 ??? tacrolimus (PROGRAF) 1 mg capsule Take 3 capsules (3 mg total) by mouth every morning AND 2 capsules (2 mg total) every evening. 450 capsule 3 ??? warfarin (Coumadin) 2 mg tablet Take 2.5-3 tablets (5-6 mg total) by mouth. February 02 update: 6 mgon Sunday, Sunday and Sunday 5 mg all other day. INR monitor weekly on Sunday at [facility]. No current facility-administered medications for this visit. Objective: Mental Status Examination: Appearance/behavior: She was a pleasant alert cooperative woman who gave a detailed account of her history. Consciousness/orientation: She was oriented in 3 spheres. Cooperation/reliability: Cooperation and reliability were good. Mood/affect: Mood and affect were reactive and euthymic. Speech/language: Speech was normal in rate and content. Thought Form: Thought form was linear. Thought Content: No delusions. Perception: No hallucinations. Cognition/memory: Within normal limits. Attention/concentration: Within normal limits. Knowledge: Within normal limits. Abstraction: Within normal limits. Judgment: Good Insight/motivation: She was motivated for treatment. Suicidal ideation or Assaultive ideation: None DSM 5 Diagnosis ASSESSMENT / PLAN #1 Depression Major Recurrent Full Remission (HCC) #2 Pretransplant Recipient Evaluation Exam #3 Chronic Kidney Disease Stage 5 GFR Less Than 15 Dialysis Dependent (HCC) Plan: She appears to be doing well on remains euthymic and motivated for transplant.She will continue to self monitor for any changes in her mood state but overall is doing very well and is tolerating dialysis from a psychological standpoint. I would be happy to see her again in the future if she notices any change in her mood state. documented in this encounter Plan of Treatment Upcoming Encounters Date Type Specialty Care Team Description 06/01/2022 Telemedicine Pharmacy An Nicholas APRN, C.NDoc, D.N.P., M.S.N. [address] [place] [phone] (Nicolas wen) 07/31/2022 Lab Laboratory Medicine Tony Rubalcava M. B., ChBurke, MElvia. [address] [place] [address] [phone] (Nicolas wen) 07/31/2022 Lab Laboratory Medicine Tony Rubalcava M. B., ChBurke, MElvia. [address] [place] [address] [phone] (Nicolas wen) 07/31/2022 Office Visit Transplant Tony Rubalcava M.B., ChDaviB., MElvia. [address] [place] [address] [phone] (Nicolas wen) 07/31/2022 Appointment Radiology Tony Rubalcava M.B., ChDaviBDavi, MElvia. [address] [place] [address] [phone] (Nicolas wen) 08/01/2022 Office Visit Transplant Tony Rubalcava M.B., [place] [address] [place], [place] [phone] (Wo behzad) 08/01/2022 Clinical Support Transplant Tony Rubalcava M.B., [place]und [place] [address] [place], [place] [phone] (Nicolas wen) documented as of this encounter Visit Diagnoses Diagnosis Depression Major Recurrent Full Remissio n (HCC) - Primary Pretransplant Recipient Evaluation Exam Chronic Kidney Disease Stage 5 GFR Less Than 15 Dialysis Dependent (HCC) documented in this encounter Additional Health Concerns Assessment Noted Time PHQ-9 Depression Total Score: 3 04/07/2021 9:37 AM CDT documented as of this encounter Care Teams Business Planner Relationship Specialty Start Date End Date Elsewhere, Pcp PCP - General 09/17/19 documented as of this encounter
--- OUTSIDE RECORDS SUMMARY | 2022-05-25 13:07 | XMS_ITS | Encounter Summary ---
:1960 Author Organization [facility] Address [address] [place] [address] Care Team Providers Name Role Phone Elsewhere, Pcp Primary Care Provider Unavailable Reason for Visit Transplant (Routine) - Closed Specialty Diagnoses / Procedures Referred By Contact Refer red To Contact Transplant Surgery / Diagnoses Pretransplant Recipient Evaluation Exam Chronic Kidney Disease Stage 5 GFR Less Than 15 Dialysis Dependent (HCC) [facility] [address] [place] [address] Referral ID Status Reason Start Date Expiration Date Visits Requ ested Visits Authorized [id number] Closed 03/01/2021 03/01/2022 1 1 Encounter Details Date Type Department Care Team Description 04/07/2021 Clinical Support Jana Lam retransplant Recipient Evaluation Exam; Center for E, L.G.S.W., Chronic Kidney Disease Stage 5 GFR Less Than 15 Dialysis Dependent (HCC) Transplantation and M.S.W. Clinical Regeneration in [facility] [address] [place] [address] Social History Tobacco Use Types [...] 12/23/2021 relatives? How often do you attend episcopal or mosque 1 to 4 times per year 12/23/2021 services? Do you belong to any clubs or organizations such No 12/23/2021 as episcopal groups, unions, fraternal or athletic groups, or [...] documented as of this encounter Consult Notes Jana Bass L.G.SRex, M.S.W. - 04/07/2021 11:00 AM CDT Psychosocial Assessment SUBJECTIVE Ms. Wray returns today for a pre-transplant psychosocial visit. Patient is 60 y.o. year old female from [place], [place] who is currently listed for kidney . Persons present: The patient. Previous Psychosocial Assessment: Yes, Date: 01/30/2019, completed by Sophia Sequeira. Past Medical and Surgical History: The patient has end stage renal disease with a history of hypertension. Please review the patient's medical records for additional information. Living Situation: Patient lives with her father in a home that he owns. Functional Status/Assistive Devices: Patient is able to ambulate independently and can manage all ADLS and IADLS on their own. She reports that she needs no assistance and uses no assistive devices. Formal Resources: Patient receives support from her local dialysis center. Dialysis: Yes hemodialysis Name Divya Schedule Sunday/Sunday/Sunday Transportation Self TRANSPLANT PLAN: Caregiver: Reviewed the roles and responsibilities of the caregiver for the post transplant recoveryperiod. Education included describing in detail the roles of the caregiver; the need for the caregiver to be with the patient on a 24/7 basis as well as the need for the caregiver to be able to transport patient to and from medical appointments during post transplant recovery period. Primary: the patient's friend, Milan Stewart telephone number: [phone]. She has been vetted and reports she provided care at the time of the patient's previous transplant. She reports no concerns with length of stay, no financial concerns and reports no health barriers to being able to care for the patient. She has a valid drivers license. She does live in [facility] andverbalized understanding at the need to be here within 24-48 hours post transplant and that the patient may not be discharged without a caregiver. She verbalized understanding. Lodging/Relocation: Patient understands the local lodging requirement and plans to stay locally at an undetermined location. She reports no financial concerns with doing so. She has [place] Medicaid. Employment/Work Status: Working Status/Reason If Not Working: Not working due to disability. Finances: Income sources: SSDI. Are there any financial concerns/barriers? no. She reports no current financial concerns and reports that she is able to maintain her financial obligations at the time of transplant. Insurance/Medications: Patient???s primary insurance is: MEDICARE A AND B Secondary insurance: [place] Medication coverage: [place] Medicaid Is this a new insurance plan since last social work visit? no If new insurance this comic book writer asked patient to investigate medication coverage for post transplant medications to determine affordability. Does patient have benefit for travel/lodging through insurance? She was advised to contact her county regarding travel/lodging benefits. ADVANCE DIRECTIVES Legal Decision Maker: Self Advanced Directives: Not on file. The patient was provided an electronic copy of the [facility] Advanced directive and advised that if she decides to utilize it, to return a legal copy to [facility] to be entered into her medical record. She verbalized understanding. At this time, she has not identified an individual to make her medical decisions if necessary. She reports that she is not comfortable with her daughter making these decisions due to her substance use history. OBJECTIVE Patient presents as alert and oriented times 3, calm, engaging in assessment.Her speech rate and volume within normal limits. Verbal skills appear intact. Patient???s mood was stated as euthymic, affect euthymic.She presents with thought processing intact and thought content appropriate to questions asked. Recent and remote memory intact. Judgement and insight intact. Patient appears to have capacityto understand her treatment options. PHQ 8 Score: ABILIO 7 Score: 0 AUDIT-C: AUDIT 0; Action:Interpretation: Psychiatric: Today the patient reports that she has met with mood psychiatry before this visit. She reports that her mood is good. She is looking forward to going to the beach for 29 days in the nextfew months. She states,I love water. I love going to the beach. It rejuvenates me. She reports no current mental health symptoms. She does express frustration at the length of wait for transplant stating that 'it has been 4 years. Substance Use: Within the past year, the patient reports that she stopped smoking approximately 4 months ago with the use of gum and 2nd step patch. She reports that she is not using nicotine of any kind. She reports no other substance use changes. Compliance: Patient states that they understand the importance of taking immunosuppressive medication and will follow their medical regimen.She currently takes their medication independently. She reports that she takes her medications directly from the pill bottles and uses a pill organizer when she travels. She reports she is not diabetic and that she does not use a CPAP machine. She reports that she does not shorten or miss her dialysis sessions. ASSESSMENT / PLAN DISCUSSION The patient reports no significant changes since her last assessment. She reports that her mother in August due to COVID-19 and they recently had her remembrance service. ASSESSMENT Patient appears to have a good understanding of the transplant process. Patient was engaged in assessment. Patient remains suitable for transplant from a psychosocial, perspective. Patient was provided this comic book writer???s contact information should any questions or concerns arise in the future. PACT: 2 SIPAT: 27 SIPAT SCORE definitions 0-6 Excellent Candidate 7-20 Good Candidate 21-39 Minimally Acceptable Candidate 40-69 Poor Candidate >70 High Risk Candidate INTERVENTIONS - Completed updated psychosocial assessment with patient - Provided supportive counseling regarding the unique experience of coping with a chronic, life-threatening illness & transplantation. - Discussed Advance Health Care Directives with patient/family - Discussed and provided psychoeducation on potential for mood changes following transplantation. - Reinforced the importance of careful attention to medical advice. - Reinforced the importance of maintaining primary and back-up caregiving plan. PLAN -The patient will continue through the steps of the evaluation and be presented at a selection conference. -Social Work will remain available to provide further assessment and supportive intervention throughout the evaluation, transplant and recovery process. -Social Work will also be available to assist the patient and family with adjustment issues and community and financial resources. #1 Pretransplant Recipient Evaluation Exam #2 Chronic Kidney Disease Stage 5 GFR Less Than 15 Dialysis Dependent (HCC) Face to face time (for billing purposes) 45 minutes total time 45 minutes spent in counseling with patient Reji Owens, M.S.W. documented in this encounter Plan of Treatment Upcoming Encounters Date Type Specialty Care Team Description 06/01/2022 Telemedicine Pharmacy An Nicholas APRN, C.N.P., D.N.P., M.S.N. [address] [place] [address] [phone] (Wo rk) 07/31/2022 Lab Laboratory Medicine Tony Rubalcava M. B., Ch.B., M.D. [address] [place] [address] 55 [phone] (Wo rk) 07/31/2022 Lab Laboratory Medicine Tony Rubalcava M. B., Ch.B., M.D. [address] [place] [address] 55 [phone] (Wo rk) 07/31/2022 Office Visit Transplant Tony Rubalcava M.B., Ch.B., M.Michelle. [address] [place] [address] 55 [phone] (Wo rk) 07/31/2022 Appointment Radiology Tony Rubalcava M.B., Sydnie, Mukund [address] [place] [address] [phone] (Wo rk) 08/01/2022 Office Visit Transplant Tony Rubalcava M.B., Mukund Otoole [address] [place] [address] [phone] (Wo rk) 08/01/2022 Clinical Support Transplant Tony Rubalcava M.B., Sydnie, Mukund [address] [place] [address] [phone] (Wo rk) documented as of this encounter Visit Diagnoses Diagnosis Pretransplant Recipient Evaluation Exam Chronic Kidney Disease Stage 5 GFR Less Than 15 Dialysis Dependent (HCC) documented in this encounter Additional Health Concerns Assessment Noted Time PHQ-9 Depression Total Score: 3 04/07/2021 9:37 AM CDT documented as of this encounter Care Teams Administration Manager Relationship Specialty Start Date End Date Elsewhere, Pcp PCP - General 09/17/19 documented as of this encounter
--- OUTSIDE RECORDS SUMMARY | 2022-05-25 13:07 | XMS_ITS | Encounter Summary ---
:1960 Author Organization [facility] Address [address] [place] [address] Care Team Providers Name Role Phone Elsewhere, Pcp Primary Care Provider Unavailable Reason for Visit Transplant (Routine) - Closed Specialty Diagnoses / Procedures Referred By Contact Refer red To Contact Transplant Surgery / Diagnoses Pretransplant Recipient Evaluation Exam Chronic Kidney Disease Stage 5 GFR Less Than 15 Dialysis Dependent (HCC[facility] [place] [address] [place] [phone] Referral ID Status Reason Start Date Expiration Date Visits Requ ested Visits Authorized [id number] Closed 03/01/2021 03/01/2022 1 1 Encounter Details Date Type Department Care Team Description 04/07/2021 Nurse Only Ata horton [facility] Jeni Ortega M.D. [address] [place] [phone] for Transplantation and Shira Díaz R.N., C.C.T.CDavi [address] [place] [phone] Clinical Regeneration in [place], [place] [address] [place] [phone] Social History Tobacco Use Types Packs/Day [...] documented as of this encounter Progress Notes Shira Díaz R.N., C.C.T.C. - 04/07/2021 3:30 PM CDT Met with Shabnam Wray for waitlist re-evaluation and education as a potential kidney recipient. The patient education provided at the time of their evaluation appointments was reinforced and discussed. Shabnam Wray is a 60 y.o. 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 Immunizations were reviewed. If the patient does identify potential living donors, the recipient was encouraged to notify the donors to call their donor coordinator for kits. Paired donationis a procedure that allows individuals who wish to give a kidney to their loved one, but cannot because they are incompatible (they have the wrong blood type or have immunity to their donor kidney). Inpaired donation, the donor and recipient are matched with another incompatible donor/recipient pair and the kidneys are exchanged between the pairs. The patient previously agreed to participate in the KPD program. Discussions occurred regarding some of the side-effects associated with retirement immunosuppression and indicated that some patients would need insulin after the transplant. It was discussed with the patient that their information will be presented to our multidisciplinary Selection Conference for final approval. Their continued wait on the UNOS list was discussed. The patient previously agreed to participate in the KDPI program. Learning needs assessed with no barriers identified. All questions answered. Patient verbalized understanding and was given my card and instructed to contact me with further questions or concerns. Patient's modified Karnofsky performance status scale (%): 70: Cares for self but unable to carry on normal activity or active work (e.g., hemodialysis-dependent at dialysis center who is able to work on days not being dialyzed; independent recipient who has not returned to pre-ESRD functional capacity)}70: Unable to work; able to live at home and care for most personal needs; varying amount of assistance needed: Cares for self but unable to carry on normal activity or active work. documented in this encounter Plan of Treatment Upcoming Encounters Date Type Specialty Care Team Description 06/01/2022 Telemedicine Pharmacy An Nicholas APRN, C.N.P., D.N.P., M.S.N. [address] [place] [phone] (Nicolas wen) 07/31/2022 Lab Laboratory Medicine Tony Rubalcava M. B., Ch.BDavi, M.D. [address] [place] [address] [phone] (Nicolas wen) 07/31/2022 Lab Laboratory Medicine Tony Rubalcava M. B., Sydnie, Mukund [address] [place] [address] [phone] (Wo rk) 07/31/2022 Office Visit Transplant Tony Rubalcava M.B., Sydnie, Mukund [address] [place] [address] [phone] (Wo rk) 07/31/2022 Appointment Radiology Tony Rubalcava M.B., ySdnie, Mukund [address] [place] [address] [phone] (Wo rk) 08/01/2022 Office Visit Transplant Tony Rubalcava M.B., Sydnie, Mukund [address] [place] [address] [phone] (Wo rk) 08/01/2022 Clinical Support Transplant Tony Rubalcava M.B., Sydnie, Mukund [address] [place] [address] [phone] (Wo rk) documented as of this encounter Visit Diagnoses Diagnosis Pretransplant Recipient Evaluation Exam Chronic Kidney Disease Stage 5 GFR Less Than 15 Dialysis Dependent (HCC) documented in this encounter Additional Health Concerns Assessment Noted Time PHQ-9 Depression Total Score: 3 04/07/2021 9:37 AM CDT documented as of this encounter Care Teams Spooler Operator Automatic Relationship Specialty Start Date End Date Elsewhere, Pcp PCP - General 09/17/19 documented as of this encounter
--- OUTSIDE RECORDS SUMMARY | 2022-05-25 13:07 | XMS_ITS | Encounter Summary ---
:1960 Author Organization [facility] Address [address] [place] [address] Care Team Providers Name Role Phone Elsewhere, Pcp Primary Care Provider Unavailable Reason for Visit Reason Comments Med Refill Encounter Details Date Type Department Care Team Description 02/28/2021 Refill Division of Nephrology and Joel Fisher APRN, Med Refill Hypertension in [facility] C.N.[facility], M.S.N. [place] [address] [facility] [address] [place] [address] [place] [phone] [phone] Social History Tobacco Use Types Packs/Day Years [...] How often do you attend jew or oriental orthodox 1 to 4 times [...] Nicholas APRN, C.N.P., D.N.P., M.S.N. [address] [place] [address] [phone] (Nicolas wen) 07/31/2022 Lab Laboratory Medicine Tony Rubalcava M. B., Ch.BDavi, M.D. [address] [place] [address] [phone] (Nicolas wen) 07/31/2022 Lab Laboratory Medicine Tony Rubalcava M. B., ChDaviBDavi, MDaviD. [address] [place] [address] 55 [phone] (Nicolas wen) 07/31/2022 Office Visit Transplant Tony Rubalcava M.B., ChDaviBDavi, M.D. [address] [place] [address] [phone] (Nicoals wen) 07/31/2022 Appointment Radiology Tony Rubalcava M.B., Sydnie, Mukund [address] [place] [address] [phone] (Wo rk) 08/01/2022 Office Visit Transplant Tony Rubalcava M.B., Mukund [place] [address] [place] [address] [phone] (Wo rk) 08/01/2022 Clinical Support Transplant Tony Rubalcava M.B., Sydnie, Mukund [address] [place] [address] [phone] (Wo rk) documented as of this encounter Visit Diagnoses Not on filedocumented in this encounter Additional Health Concerns Assessment Noted Time PHQ-9 Depression Total Score: 4 01/30/2019 12:13 PM CD T documented as of this encounter Care Teams Dry Yard Worker Relationship Specialty Start Date End Date Elsewhere, Pcp PCP - General 09/17/19 documented as of this encounter
--- OUTSIDE RECORDS SUMMARY | 2022-05-25 13:07 | XMS_ITS | Encounter Summary ---
:1960 Author Organization [facility] Address [address] [place] [address] Care Team Providers Name Role Phone Elsewhere, Pcp Primary Care Provider Unavailable Reason for Visit Reason Comments COVID Inquiry Encounter Details Date Type Department Care Team Description 02/24/2021 Clinical Ata Dick Prescheduling, KAREL Martinez Inquiry Communication Center for Provider Transplantation and Clinical Regeneration in [facility] videotape recording engineer [address] [place] [address] Social History Tobacco Use Types Packs/Day Years [...] 12/23/2021 relatives? How often do you attend adventism or catholic 1 to 4 times per year 12/23/2021 services? Do you belong to any clubs or organizations such No 12/23/2021 as adventism groups, unions, fraternal or athletic groups, or [...] Notes Telephone Encounter - Elena Hollis - 02/24/2021 2:53 PM CDT What is the purpose of the call?: Standard Appointment Process Standard Appointment Process Have you tested positive for COVID-19 in the last 20 days OR do you have a pending COVID-19 test because you had symptoms?: No, neither apply What region is the appointment being requested?: More than 14 days [place]- follow local process (End Screening) Testing Recommendation Endpoint Is testing recommended? : Not recommended to test Plan: Endpoint recommendation: Followed regional OTG *Reminder if sending patient for testing in [facility], route encounter to the correct testing pool. documented in this encounter Plan of Treatment Upcoming Encounters Date Type Specialty Care Team Description 06/01/2022 Telemedicine Pharmacy An Nicholas APRN, C.N.P., D.N.P., M.S.N. [address] [place] [phone] (Nicolas wen) 07/31/2022 Lab Laboratory Medicine Tony Rubalcava M. B., Ch.BDavi, M.D. [address] [place] [address] [phone] (Nicolas wen) 07/31/2022 Lab Laboratory Medicine Tony Rubalcava M. B., Sydnie, Mukund [address] [place] [address] [phone] (Wo rk) 07/31/2022 Office Visit Transplant Tony Rubalcava M.B., Sydnie, Mukund [address] [place] [address] [phone] (Wo rk) 07/31/2022 Appointment Radiology Tony Rubalcava M.B., Sydnie, Mukund [address] [place] [address] 55 [phone] (Wo rk) 08/01/2022 Office Visit Transplant Tony Rubalcava M.B., Sydnie, Mukund [address] [place] [address] [phone] (Wo rk) 08/01/2022 Clinical Support Transplant Tony Rubalcava M.B., Sydnie, Mukund [address] [place] [address] [phone] (Wo rk) documented as of this encounter Visit Diagnoses Not on filedocumented in this encounter Additional Health Concerns Assessment Noted Time PHQ-9 Depression Total Score: 4 01/30/2019 12:13 PM CD T documented as of this encounter Care Teams Compact Assembler Relationship Specialty Start Date End Date Elsewhere, Pcp PCP - General 09/17/19 documented as of this encounter
--- OUTSIDE RECORDS SUMMARY | 2022-05-25 13:07 | XMS_ITS | Encounter Summary ---
:1960 Author Organization [facility] Address [address] [place] [address] Care Team Providers Name Role Phone Elsewhere, Pcp Primary Care Provider Unavailable Encounter Details Date Type Department Care Team Description 04/05/2021 Orders Only [facility] PCP [facility] Elena Fuller M.D. 200 [place], [place] [phone] (Wo rk) Social History Tobacco Use Types [...] How often do you attend latter-day or gnosticism 1 to 4 times per year 12/23/2021 [...] Description 06/01/2022 Telemedicine Pharmacy An Nicholas APRN C.NDaviP., D.N.P., M.S.N. [address] [place] [address] [phone] ( rk) 07/31/2022 Lab Laboratory Medicine Tony Rubalcava M. B., Sydnie, MDebra [address] [place] [address] [phone] ( rk) 07/31/2022 Lab Laboratory Medicine Tony Rubalcava M. B., ChBurke, MDebra [address] [place] [address] 55 [phone] ( rk) 07/31/2022 Office Visit Transplant Tony Rubalcava M.B., ChBurke, MDebra [address] [place] [address] 55 [phone] ( rk) 07/31/2022 Appointment Radiology Tony Rubalcava M.B., ChBurke, MDebra [address] [place] [address] 55 [phone] ( rk) 08/01/2022 Office Visit Transplant Tony Rubalcava M.B., [place] [address] [place] [address] [phone] (Wo rk) 08/01/2022 Clinical Support Transplant Tony Rubalcava M.B., [place]und [place] [address] [place] [address] 55 [phone] (Wo rk) documented as of this encounter Visit Diagnoses Not on filedocumented in this encounter Additional Health Concerns Assessment Noted Time PHQ-9 Depression Total Score: 4 01/30/2019 12:13 PM CD T documented as of this encounter Care Teams Carry Out Clerk Relationship Specialty Start Date End Date Elsewhere, Pcp PCP - General 09/17/19 documented as of this encounter
--- OUTSIDE RECORDS SUMMARY | 2022-05-25 13:07 | XMS_ITS | Encounter Summary ---
:1960 Author Organization [facility] Address [address] [place] [address] Care Team Providers Name Role Phone Elsewhere, Pcp Primary Care Provider Unavailable Encounter Details Date Type Department Care Team Description 02/10/2021 Orders Only Division of Nephrology and Zaire Candelario A PRN, Hypertension, [facility], in [place], [facility] [address] [place], [place] [address] [place] [phone] [place] [address] [phone] Social History Tobacco Use Types Packs/Day Years [...] How often do you attend yazidi or taoist 1 to 4 times per [...] An Nicholas APRN, C.N.P., D.N.P., M.S.N. [address] [place] [address] [phone] (Nicolas wen) 07/31/2022 Lab Laboratory Medicine Tony Rubalcava M. B., ChDaviBDavi, M.D. [address] [place] [address] 55 [phone] (Nicolas wen) 07/31/2022 Lab Laboratory Medicine Tony Rubalcava M. B., Ch.BDavi, M.D. [address] [place] [address] 55 [phone] (Nicolas wen) 07/31/2022 Office Visit Transplant Tony Rubalcava M.B., ChDaviBDavi, M.D. [address] [place] [address] 55 [phone] (Nicolas wen) 07/31/2022 Appointment Radiology Tony Rubalcava M.B., Mukund [place] [address] [place] [address] 55 [phone] (Wo rk) 08/01/2022 Office Visit Transplant Tony Rubalcava M.B., [place]und [place] [address] [place] [address] [phone] (Wo rk) 08/01/2022 Clinical Support Transplant Tony Rubalcava M.B., Mukund [place] [address] [place] [address] [phone] (Wo rk) documented as of this encounter Visit Diagnoses Not on filedocumented in this encounter Additional Health Concerns Assessment Noted Time PHQ-9 Depression Total Score: 4 01/30/2019 12:13 PM CD T documented as of this encounter Care Teams Senior Hadoop Developer Relationship Specialty Start Date End Date Elsewhere, Pcp PCP - General 09/17/19 documented as of this encounter
--- OUTSIDE RECORDS SUMMARY | 2022-05-25 13:07 | XMS_ITS | Encounter Summary ---
:1960 Author Organization [facility] Address [address] [place] [address] Care Team Providers Name Role Phone Elsewhere, Pcp Primary Care Provider Unavailable Reason for Referral Transplant (Routine) - Closed Specialty Diagnoses / Procedures Referred By Contact Refer red To Contact Transplant Surgery / Diagnoses Pretransplant Recipient Evaluation Exam Chronic Kidney Disease Stage 5 GFR Less Than 15 Dialysis Dependent (HCC) [facility] [address] [place] [address] Referral ID Status Reason Start Date Expiration Date Visits Requ ested Visits Authorized [id number] Closed 04/14/2021 04/14/2022 1 1 MRI/CAT/PET Scan (Routine) - Closed Specialty Diagnoses / Procedures Referred By Contact Refer red To Contact Radiology Diagnoses Pretransplant Recipient Evaluation Exam Chronic Kidney Disease Stage 5 GFR Less Than 15 Dialysis Dependent (HCC) Jeni Cantrell M.D. [facility] Procedures CT Abdomen Pelvis without IV Contrast [address] [place] [address] Referral ID Status Reason Start Date Expiration Date Visits Requ ested Visits Authorized [id number] Closed 04/14/2021 04/14/2022 1 1 Reason for Visit Transplant (Routine) - Closed Specialty Diagnoses / Procedures Referred By Contact Refer red To Contact Transplant Surgery / Diagnoses Pretransplant Recipient Evaluation Exam Chronic Kidney Disease Stage 5 GFR Less Than 15 Dialysis Dependent (HCC) [facility] [address] [place] [phone] Referral ID Status Reason Start Date Expiration Date Visits Requ ested Visits Authorized [id number] Closed 03/01/2021 03/01/2022 1 1 Encounter Details Date Type Department Care Team Description 04/14/2021 Office Visit Ata Hendrix, Pret[place] nsplant Recipient Evaluation Exam; [facility] Chronic Kidney Disease Stage 5 GFR Less Than 15 Dialysis Dependent ([facility] Transplantation and M.[facility] in [address] [place] [address] [place] [phone] [place] [address] [phone] Social History Tobacco Use Types Packs/Day Years [...] How often do you attend shinto or mosque 1 to 4 times per [...] documented as of this encounter Progress Notes Jeni Cantrell M.D. - 04/14/2021 3:30 PM CDT KIDNEY TRANSPLANT MEDICAL EVALUATION WRAP-UP VISIT REASON FOR VISIT: Shabnam Wray is a 60 y.o. female who presents for kidney transplant evaluation wrap up visit. HISTORY OF PRESENT ILLNESS: Patient returns to discuss the results of tests and evaluations. She was originally seen by Dr. Summers on April 07, 2021. Please refer to her note for further details. Briefly, this is a 60 y.o. 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 She continues with stent exchange every 6 months. She resumed dialysis in 2017 and has been on ourtransplant waiting list since 2018. Dobutamine stress echo was negative for myocardial ischemia, with ejection fraction increasing from 62% to 70% at peak stress. She was seen by Cardiology, and was considered low risk for cardiovascularevents. Chest x-ray was unremarkable. The patient completed all phases of education, surgical assessment, psychosocial, and nutritional assessment for kidney transplant candidate evaluation. She was seen by Dr. Hernandez for depression, and found it to be well controlled. She does have a history of superficial melanoma, x2, removed. She has not been following with Dermatology. She has not seen the transplant surgeon for quite some time. She smoked for 45 years, and quit few months ago. Her BMI is 37 She has been on chronic anticoagulation for clotted AV fistula, otherwise no history of DVT Physical exam: No carotid bruit Potential living kidney donor(s): no The following portions of the patient's history were reviewed and updated as appropriate: Comprehensive review of systems, allergies, current medications, family history, medical history, social history, surgical history, and problem list. 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 Cause of renal disease: Other, unknown 2. Need for genetic testing of related donor? No 3. Recurrent risk: possible 4. cPRA: 52 5. Blood Type: O Pos, if B anti A titer: N/A; 6. Previous transplants: Kidney 7. Dialysis: Yes Date: 2016 8. Diabetes?: n/a 9. Pancreas candidate?: No 10. BMI: BMI Readings from Last 1 Encounters: 04/07/21 36.67 kg/m? 11. Functional status/Karnofsky score: pending 12. Cardiopulmonary evaluation (cTNT, EF % etc): negative stress test, EF 62%, troponin 32; EKG nonspecific T wave abnormality 13. History of malignancies: note suggests recent history of melanoma involving her left arm -- willclarify with patient 14. Infectious Disease Issues: COVID-19 infection 10/2020 15. Urologic issues: h/o renal allograft UPJ obstruction undergoing ureteral stent exchange every 3 months 16. Hematology/coagulation issues: maintained on warfarin for recurrent clotting of her dialysis access 17. Health maintenance: due for mammogram in 05/2021; colonoscopy up to date 2018 with one 3 mm hyperplastic polyp removed -- next due 2027; no longer receives Pap smears following hysterectomy for fibroids; 20 pack year smoking history, quit 4 months ago -- refer for lung cancer screening 18. Specialized imaging review (MRI for ADPKD, atka kidneys, vascular): ultrasound aorta 2018 showed mild plaque 19. Peripheral vascular disease: No 20. Exhausted dialysis access: per Dr. Martínez's note dated 01/17/2021, the patient is struggling with dialysis access issues and has previously failed peritoneal dialysis 21. Consider for unique donor options (high KPDI, etc.): pending 22. Willing to receive blood products: Yes 23. Other Issues (surgical, psychosocial, other medical): recurrent major depression in full remission PACT 2; intractable right ulnar pain following fistula placement s/p stimulator placement 09/2020, history of smoking, history of melanoma 24. Pending issues: CT of abdomen and pelvis, dermatology evaluation, transplant surgery evaluation,lung cancer screening ?? The patient was counseled about the risks, benefits and alternative of a transplant as well as the potential risks of immunosuppression medications. Patient was also notified that the overall evaluation will be discussed in the multidisciplinary kidney/pancreas transplant recipients selection committee meeting where a final recommendation on the patient's suitability for transplantation will be made. I spent 30 min with the patient today and more than half of the time was spent on counseling about the above issues and coordination of care. documented in this encounter Plan of Treatment Upcoming Encounters Date Type Specialty Care Team Description 06/01/2022 Telemedicine Pharmacy An Nicholas APRN, C.N.P., D.N.P., M.S.N. [address] [place] [phone] (Wo rk) 07/31/2022 Lab Laboratory Medicine Tony Rubalcava M. B., Sydnie, MDebra [address] [place] [phone] (Wo rk) 07/31/2022 Lab Laboratory Medicine Tony Rubalcava M. B., Ch.Maurice, MDebra [address] [place] [phone] (Wo rk) 07/31/2022 Office Visit Transplant Tony Rubalcava M.B., Mukund Otoole [address] [place] [phone] (Wo rk) 07/31/2022 Appointment Radiology Tony Rubalcava M.B., Mukund Otoole [address] [place] [phone] (Wo rk) 08/01/2022 Office Visit Transplant Tony Rubalcava M.B., Mukund Otoole [address] [place] [address] [phone] (Wo rk) 08/01/2022 Clinical Support Transplant Tony Rubalcava M.B., Sydnie, Mukund [address] [place] [address] [phone] (Wo rk) Scheduled Referrals Name Type Priority Associated Diagnoses Order S chedule Transplant - Outpatient Referral Routine Pretransplant Expecte d: Dermatology consult Recipient Evaluation 06/01/2021 (clinic) Exam (Approximate), Chronic Kidney Expires: Disease Stage 5 GFR 04/14/20 24 Less Than 15 Dialysis Dependent (HCC) documented as of this encounter Results CT Abdomen Pelvis without IV Contrast (04/14/2021 2:57 PM CDT) Anatomical Region Laterality Modality Abdomen, Pelvis, Abdominal RST LOS, N/A Comp uted Tomography, Computed Abdominal ARZ LOS, Abdominal FLA LOS Guzman ography Specimen (Source) Anatomical Collection Method Collection Time Re ceived Time Location / / Volume Laterality 04/14/2021 3:24 PM CDT Impressions 04/14/2021 4:08 PM CDT 1. Markedly atrophied bilateral atka kidneys with small cystic lesions, likely representing [...] the circumference. Marked atrophy of the bilateral atka k idneys with diffuse renal parenchymal wasting [...] the circumference. Marked atrophy of the bilateral atka k idneys with diffuse renal parenchymal wasting [...] inguinal hernia. IMPRESSION: 1. Markedly atrophied bilateral atka k idneys with small cystic lesions, likely [...] GFR Less Than 15 Dialysis Dependent (HCC) Pretransplant Recipient Evaluation Exam Chronic Kidney Disease Stage 5 GFR Less Than 15 Dialysis Dependent (HCC) documented in this encounter Additional Health Concerns Assessment Noted Time PHQ-9 Depression Total Score: 3 04/07/2021 9:37 AM CDT documented as of this encounter Care Teams [employer] Relationship Specialty Start Date End Date Elsewhere, Pcp PCP - General 09/17/19 documented as of this encounter
--- OUTSIDE RECORDS SUMMARY | 2022-05-25 13:07 | XMS_ITS | Encounter Summary ---
:1960 Author Organization [facility] Address [address] [place] [id number] Care Team Providers Name Role Phone Elsewhere, Pcp Primary Care Provider Unavailable Reason for Visit Reason Comments Med Refill Encounter Details Date Type Department Care Team Description 02/28/2021 Refill Division of Nephrology and Lobo Ocampo M.D. Med Refill Hypertension in [place], [facility] [address] [place], [place] [address] [place] [phone] [place] [address] [phone] Social History Tobacco Use Types Packs/Day Years [...] How often do you attend shinto or hoahaoism 1 to 4 times per [...] Nicholas APRN, C.N.P., D.N.P., M.S.N. [address] [place] [phone] (Nicolas wen) 07/31/2022 Lab Laboratory Medicine Tony Rubalcava M. B., Sydnie, MDebra [address] [place] [phone] (Nicolas wen) 07/31/2022 Lab Laboratory Medicine Tony Rubalcava M. B., ChBurke, MDebra [address] [place] [phone] (Nicolas wen) 07/31/2022 Office Visit Transplant Tony Rubalcava M.B., Sydnie, MDebra [address] [place] [phone] (Nicolas wen) 07/31/2022 Appointment Radiology Tony Rubalcava M.B., Mukund Otoole [address] [place] [address] [phone] (Wo rk) 08/01/2022 Office Visit Transplant Tony Rubalcava M.B., Mukund Otoole [address] [place] [phone] (Wo rk) 08/01/2022 Clinical Support Transplant Tony Rubalcava M.B., Mukund Otoole [address] [place] [address] [phone] (Wo behzad) documented as of this encounter Visit Diagnoses Not on filedocumented in this encounter Additional Health Concerns Assessment Noted Time PHQ-9 Depression Total Score: 4 01/30/2019 12:13 PM CD T documented as of this encounter Care Teams Park Interpreter Relationship Specialty Start Date End Date Elsewhere, Pcp PCP - General 09/17/19 documented as of this encounter
--- OUTSIDE RECORDS SUMMARY | 2022-05-25 13:07 | XMS_ITS | Encounter Summary ---
:[address] [facility] Address [address] [place] [address] Care Team Providers Name Role Phone Elsewhere, Pcp Primary Care Provider Unavailable Reason for Referral Outpatient (Routine) - Closed Specialty Diagnoses / Procedures Referred By Contact Refer red To Contact Diagnoses Hypertension Essential Primary Pretransplant Recipient Evaluation Exam Chronic Kidney Disease Stage 5 GFR Less Than 15 Dialysis Dependent (HCC) Fredo Cantrell M.D. [facility] Procedures Echo Stress [address] [place] [address] Referral ID Status Reason Start Date Expiration Date Visits Requ ested Visits Authorized [id number] Closed 03/01/2021 03/01/2022 1 1 Transplant (Routine) - Closed Specialty Diagnoses / Procedures Referred By Contact Refer red To Contact Transplant Surgery / Diagnoses Pretransplant Recipient Evaluation Exam Chronic Kidney Disease Stage 5 GFR Less Than 15 Dialysis Dependent (HCC) Fredo Cantrell [facility] Transplant MDebra [address] [place] [address] Referral ID Status Reason Start Date Expiration Date Visits Requ ested Visits Authorized [id number] Closed 03/01/2021 03/01/2022 1 1 Transplant (Routine) - Closed Specialty Diagnoses / Procedures Referred By Contact Refer red To Contact Transplant Surgery / Diagnoses Pretransplant Recipient Evaluation Exam Chronic Kidney Disease Stage 5 GFR Less Than 15 Dialysis Dependent (HCC) Fredo Cantrell [facility] Transplant M.Whitney [address] [place] [address] Referral ID Status Reason Start Date Expiration Date Visits Requ ested Visits Authorized [id number] Closed 03/01/2021 03/01/2022 1 1 Outpatient (Routine) - Closed Specialty Diagnoses / Procedures Referred By Contact Refer red To Contact Diagnoses Pretransplant Recipient Evaluation Exam Chronic Kidney Disease Stage 5 GFR Less Than 15 Dialysis Dependent (HCC) Fredo Cantrell M.D. [facility] Procedures ECG 12 Lead [address] [place] [address] Referral ID Status Reason Start Date Expiration Date Visits Requ ested Visits Authorized [id number] Closed 03/01/2021 03/01/2022 1 1 Transplant (Routine) - Closed Specialty Diagnoses / Procedures Referred By Contact Refer red To Contact Transplant Surgery / Diagnoses Pretransplant Recipient Evaluation Exam Chronic Kidney Disease Stage 5 GFR Less Than 15 Dialysis Dependent (HCC) Fredo Cantrell [facility] Transplant M[facility] [address] [place] [address] Referral ID Status Reason Start Date Expiration Date Visits Requ ested Visits Authorized [id number] Closed 03/01/2021 03/01/2022 1 1 Transplant (Routine) - Closed Specialty Diagnoses / Procedures Referred By Contact Refer red To Contact Transplant Surgery / Diagnoses Pretransplant Recipient Evaluation Exam Chronic Kidney Disease Stage 5 GFR Less Than 15 Dialysis Dependent [facility] [address] [place] [phone] Referral ID Status Reason Start Date Expiration Date Visits Requ ested Visits Authorized [id number] Closed 03/01/2021 03/01/2022 1 1 Transplant (Routine) - Closed Specialty Diagnoses / Procedures Referred By Contact Refer red To Contact Transplant Surgery / Diagnoses Pretransplant Recipient Evaluation Exam Chronic Kidney Disease Stage 5 GFR Less Than 15 Dialysis Dependent ([facility]) [facility] [address] [place] [phone] Referral ID Status Reason Start Date Expiration Date Visits Requ ested Visits Authorized [id number] Closed 03/01/2021 03/01/2022 1 1 Scheduling Instructions Pt is on HD (prefers to come on non-dial ysis days) hysical Therapy (Routine) - Closed Specialty Diagnoses / Procedures Referred By Contact Refer red To Contact Diagnoses Pretransplant Recipient Evaluation Exam Chronic Kidney Disease Stage 5 GFR Less Than 15 Dialysis Dependent ([facility]) Fredo Cantrell M.D. [facility] Procedures PT Evaluate and treat [address] [place] [phone] Referral ID Status Reason Start Date Expiration Date Visits Requ ested Visits Authorized [id number] Closed 03/01/2021 03/01/2022 99 99 Reason for Visit Reason Comments Phone Contact Encounter Details Date Type Department Care Team Description 02/24/2021 Clinical Communication Ata Arreola, Aba mmy Phone Contact Center for K, R.N., Transplantation and C.C.T.C. Clinical Regeneration in [address] [place] [address] [place] [phone] [place] [phone] [phone] Social History Tobacco Use Types Packs/Day Years [...] How often do you attend pentecostal or taoist 1 to 4 times per [...] documented as of this encounter Miscellaneous Notes Addendum Note - Fredo Cantrell M.D. - 03/01/2021 9:31 PM CDT Addended by: FREDO CANTRELL on: 03/01/2021 09:31 PM Modules accepted: Orders Addendum Note - Shira Díaz R.N., C.C.T.C. - 02/24/2021 4:01 PM CDT Addended by: SHIRA DÍAZ on: 02/24/2021 04:01 PM Modules accepted: Orders, SmartSet Telephone Encounter - Elena Hollis - 02/24/2021 2:55 PM CDT Patient is scheduled for her waitlist appointments starting on 04/[address] Kristopher peace and finishing with Dr. cantrell on 04/14 f2f as well. Please order testing. Thank you! Elena Hollis Telephone Encounter - Elena Hollis - 02/24/2021 1:20 PM CDT Patient is due for WL appointments. Please advise on financial approval Please route to : RST TXP N SCHEDULING Telephone Encounter - Shira Díaz R.N., C.C.T.CDavi - 02/24/2021 12:30 PM CDT I contacted Shabnam to invite her to return for a waitlist re-evaluation. She is willing to return in March if appointments are available. Virtual Visits Included: NO Type of Appointment: Waitlist On Dialysis: Yes, MWF SPK: No Chemdep: No Mood Consult: Yes, describe: hx depression Cardiology Consult: Yes, HTN, hx smoking, HLD Extra Consults: DSE, PMR Requested Provider: NA Patient Not Available to Come: Wants to come on non dialysis days (/) in March (will be away for 30 days in April). Angiogram: No Colonoscopy: Yes, 2018 at [facility] Pap: No, s/p hysterectomy Mammo: No, she will update in [place] Previous Tx W/U: No documented in this encounter Plan of Treatment Upcoming Encounters Date Type Specialty Care Team Description 06/01/2022 Telemedicine Pharmacy An Nicholas APRN, C.N.PDavi, D.N.P., M.S.N. [address] [place] [phone] (Nicolas wen) 07/31/2022 Lab Laboratory Medicine Tony Rubalcava M. B., ChBurke, MDebra [address] [place] [phone] (Nicolas wen) 07/31/2022 Lab Laboratory Medicine Tony Rubalcava M. B., ChBurke, MDebra [address] [place] [phone] (Nicolas wen) 07/31/2022 Office Visit Transplant Tony Rubalcava M.B., ChBurke, MDebra [address] [place] [phone] (Nicolas wen) 07/31/2022 Appointment Radiology Tony Rubalcava M.B., ChDaviBDavi, MDebra [address] [place] [phone] (Nicolas wen) 08/01/2022 Office Visit Transplant Tony Rubalcava M.B., ChBurke, MDaviDDavi [address] [place] [phone] (Nicolas wen) 08/01/2022 Clinical Support Transplant Tony Rubalcava M.B., Mukund Otoole [address] [place] [phone] (Wo rk) Scheduled Referrals Name Type Priority Associated Diagnoses Order [facility] Transplant Kidney Outpatient Referral Routine Pretransplant Ex pected: office visit Recipient Evaluation 021 (clinic) Exam (Approximate), Chronic Kidney Disease Expir es: Stage 5 GFR Less Than 2023 15 Dialysis Dependent (HCC) Transplant Kidney Outpatient Referral Routine Pretransplant Ex pected: office visit Recipient Evaluation 021 (clinic) Exam (Approximate), Chronic Kidney Disease Expir es: Stage 5 GFR Less Than 2023 15 Dialysis Dependent (HCC) Transplant Kidney Outpatient Referral Routine Pretransplant Ex pected: office visit Recipient Evaluation 021 (clinic) Exam (Approximate), Chronic Kidney Disease Expir es: Stage 5 GFR Less Than 2023 15 Dialysis Dependent (HCC) Transplant Kidney Outpatient Referral Routine Pretransplant Ex pected: office visit Recipient Evaluation 021 (clinic) Exam (Approximate), Chronic Kidney Disease Expir es: Stage 5 GFR Less Than 2023 15 Dialysis Dependent (HCC) Transplant - Heart Outpatient Referral Routine Pretransplant E xpected: consult (clinic) Recipient Evaluation Exam (Approximate), Chronic Kidney Disease Expir es: Stage 5 GFR Less Than 2023 15 Dialysis Dependent (HCC) documented as of this encounter Results ECHO STRESS 2D WITH COLOR AND LIMITED DOPPLER (04/14/2021 8:50 AM CDT) [facility] Method Time Signature Ejection Fraction 62 MC [...] effusion. For the complete report, see the Trendrating Documents. Narrative 04/14/2021 9:55 AM CDT For the complete report, see the Trendrating Documents. Final Impressions 1. Dobutamine stress echocardiogram [...] original. For the complete report, see the Trendrating Documents. Final Impressions 1. Dobutamine stress echocardiogram [...] complete report, see the Order-L evel Documents. Fredo Cantrell M.D. CV ECHO PROCEDURES ECG 12 Lead (04/07/2021 9:19 AM CDT) P athologist Signature Ventricular Rate 68 BPM MUSE ECG/Min [place] Interval 188 ms MUSE QRSD Interval 86 ms MUSE QT Interval 406 ms MUSE QTC Interval 431 ms MUSE P [place] 12 degrees MUSE R [place] -23 degrees MUSE T Wave [place] 46 degrees MUSE Specimen Anatomical Collection Method Collection Time Receive d Time (Source) Location / / Volume Laterality 04/07/2021 9:19 AM CDT 10:54 AM CDT Impressions MUSE - 04/07/2021 9:26 AM CDT Normal sinus rhythm Nonspecific T wave abnormality When compared with ECG of 22-JAN-2020 14 :25, T wave changes lateral leads Revised Report Narrative This result has an attachment that is no t available. Procedure Note Dorian Ashford M.D. - 04/07/2021Formatt ing of this note might be different from the original. IMPRESSION: Normal sinus rhythm Nonspecific T wave abnormality When compared with ECG of 22-JAN-2020 14 :25, T wave changes lateral leads Revised Report rFedo Cantrell M.D. ECG ORDERABLES Performing Organization Address City/State/ZIP Code Phon e Number MUSE MUSE NA DX Chest AP or PA and Lateral [...] ealed left rib fractures. Chest otherwise negative. Fredo Cantrell M.D. IMG DIAGNOSTIC IMAGING PROCE ALEXI BKV DNA Detect/Quant (04/07/2021 8:43 AM CDT) [facility] Method Time Signature BKV DNA Undetected Undetected 04/07/2021 [facility] Detect/Quant, IU/mL 10:50 PM P CDT Comment: Result in log IU/mL is Undetected. ----ADDITIONAL INFORMATION---- The quantification range of this assay i s 22 to 100,000,000 IU/mL (1.34 log to 8.00 log IU/mL). Testing was performe d using the barrett BKV test ([employer] with the barrett 6800 System. Specimen Anatomical Collection Method Collection Time Receive d Time (Source) Location / / Volume Laterality Blood (Blood, 04/07/2021 8:43 AM 04/07/20 21 Venous) CDT 11:28 AM CDT Fredo Cantrell M.D. LAB MICROBIOLOGY - BLOOD ORD ERABLES Performing Organization Address City/[facility]/ZIP Code Phon e Number [facility] [address] [place], [place] [address] [facility] [place] [address] Laboratory Medicine and Pathology [address] [place] HLA Class II SAB Antibody Screen (04/07/2021 8:43 AM CDT) [facility] Method Time Signature Class II SAB Positive Not Applicable 04/08/2021 D[facility] Overall 2:32 PM CDT Result Class II SAB 37 04/08/2021 [facility] cPRA 2:32 PM CDT Comment: ----ADDITIONAL INFORMATION---- This PRA is a [facility] calculated PRA. PRA is based on the antigen frequency of the Tissue Typing patient a nd donor population. ??PRA reflects all antibodie s with a normalized value (MFI) above 300. SAB DRB1 Specificity NONE 04/08/2021 2:32 PM CDT D[facility] SAB [id number] Specificity NONE 04/08/2021 2:32 P M CDT [facility] SAB DQB1 Specificity see below 04/08/2021 2:32 PM CDT DBB8 Comment: 2(A*05:01;B*02:01)[8327] Format: Serologic Eq.(DQA1;DQB1 Mol. All jorge)[Normalized MFI] NOTE: Data is displayed in descending or kristi by Mean Fluorescence Intensity (MFI). ??Serologic equivalents can be di splayed multiple times for different molecular alleles. SAB DPB1 Specificity NONE 04/08/2021 2:32 PM CDT DBB8 Comment: ----ADDITIONAL INFORMATION---- Method: Luminex Flow Cytometry CLIA: [id number] ??CLIA Check Cashier: SHANTA LOYD MD,PhD Specimen Anatomical Collection Method Collection Time Receive d Time (Source) Location / / Volume Laterality Blood (Blood, 04/07/2021 8:43 AM 04/07/20 9:43 Venous) CDT AM CDT Fredo Cantrell M.D. LAB HLA ORDERABLES Performing Organization Address City/[facility]/ZIP Code Phon e Number [facility] - [address] [place], [place] [address] [facility] DBB8 [place] [address] Laboratories-[facility] 200 [facility] HLA Class I SAB Antibody Screen (04/07/2021 8:43 AM CDT) [facility] Method Time Signature Class I SAB Positive Not Applicable 04/08/2021 [facility] Overall 2:30 PM CDT Result Class I SAB 24 04/08/2021 D[facility] cPRA 2:30 PM CDT Comment: ----ADDITIONAL INFORMATION---- This PRA is a [facility] calculated PRA. PRA is based on the antigen frequency of the Tissue Typing patient a nd donor population. ??PRA reflects all antibodie s with a normalized value (MFI) above 300. SAB A Specificity see below 04/08/2021 2:30 PM CDT DBB8 Comment: 32(32:01)[2857], 25(25:01)[1729], 24(24: 03)[1539], 23(23:01)[1418], 24(24:02)[1279], 31(31: 01)[1153], 30(30:01)[1007], 30(30:02)[557] Format: Serologic Eq.(A Mol. Alle[place])[Nor malized MFI] NOTE: Data is displayed in descending or kristi by Mean Fluorescence Intensity (MFI). ??Serologic equivalents can be di splayed multiple times for different molecular alleles. SAB B Specificity see below 04/08/2021 2:30 PM CDT DBB8 Comment: 51(51:01)[9668], 49(49:01)[3929], 51(51: 02)[3358], 38(38:01)[2677], 78(78:01)[2610], 63(15: 16)[2509], 59(59:01)[2448], 52(52:01)[2322], 77(15: 13)[2129], 57(57:03)[1900], 57(57:01)[1813], 75(15: 02)[1810], 53(53:01)[1791], 58(58:01)[1441], 75(15: 11)[592], 27(27:05)[571] Format: Serologic Eq.(B Mol. Allele)[Nor malized MFI] NOTE: Data is displayed in descending or kristi by Mean Fluorescence Intensity (MFI). ??Serologic equivalents can be di splayed multiple times for different molecular alleles. SAB C Specificity NONE 04/08/2021 2:30 PM CDT DBB8 Comment: ----ADDITIONAL INFORMATION---- Method: Luminex Flow Cytometry CLIA: [id number] ??CLIA Check Cashier: SHANTA LOYD MD,PhD Specimen Anatomical Collection Method Collection Time Receive d Time (Source) Location / / Volume Laterality Blood (Blood, 04/07/2021 8:43 AM 04/07/20 9:43 Venous) CDT AM CDT Fredo Cantrell M.D. LAB HLA ORDERABLES Performing Organization Address [facility] Phon e Number [facility] - [address] [place], [place] [address] [facility] DBB8 [place] [address] Laboratories-[facility] [address] HIV-1/-2 Ag and Ab Screen, Plasma (04/07/2021 8:43 AM CDT) athologist Signature HIV-1/-2 Ag Negative Negative 04/07/2021 [facility] and Ab Screen, 12:37 PM CDT P Comment: Negative result does not rule out HIV in fection. If exposure to HIV infection occurred <14 d ays ago, contact the laboratory to request additi on of HIV-1 RNA detection / quantification test (HIV QN). Specimen Anatomical Collection Method Collection Time Receive d Time (Source) Location / / Volume Laterality Blood (Blood, 04/07/2021 8:43 AM 04/07/20 Venous) CDT 11:02 AM CDT Fredo Cantrell M.D. LAB MICROBIOLOGY - BLOOD ORD ERABLES Performing Organization Address City/[facility] Phon e Number [facility] [address] [place], [place] [address] SU[facility]ENTER [facility] [place] [address] Laboratory Medicine and Pathology [address] [place] HCV Ab Scrn w/Reflex to HCV PCR, Serum (04/07/2021 8:43 AM CDT) athologist Signature HCV Ab Screen, Negative Negative 04/07/2021 [facility] S 11:49 AM CDT Comment: Pimgud-qg-azgehw ratio is <1.00 . Specimen Anatomical Collection Method Collection Time Receive d Time (Source) Location / / Volume Laterality Blood (Blood, 04/07/2021 8:43 AM 04/07/20 Venous) CDT 10:47 AM CDT Fredo Cantrell M.D. LAB MICROBIOLOGY - BLOOD ORD ERABLES Performing Organization Address City/[facility]/ZIP Code Phon e Number [facility] [address] [place] [address] SUPPORT CENTER [facility] [place] [address] Laboratory Medicine and Pathology [address] [place] [address] Dr. [place] Hepatitis B Surface Antigen (04/07/2021 8:43 AM CDT) athologist [facility] HBs Antigen, S Negative Negative 04/07/2021 [facility] 11:32 AM CDT Specimen Anatomical Collection Method Collection Time Receive d Time (Source) Location / / Volume Laterality Blood (Blood, 04/07/2021 8:43 AM 04/07/20 Venous) CDT 10:47 AM CDT Fredo Cantrell M.D. LAB MICROBIOLOGY - BLOOD ORD ERAOWEN Performing Organization Address City/[facility]/ZIP Code Phon e Number [facility] [address] [place] [address] SU[facility] CENTER [facility] [place] [address] Laboratory Medicine and Pathology [address] [place] [address] Dr. [place] HBc Total Ab, Serum (04/07/2021 8:43 AM CDT) athologist Signature HBc Total Ab, Negative Negative 04/07/2021 [facility] S 11:59 AM CDT Specimen Anatomical Collection Method Collection Time Receive d Time (Source) Location / / Volume Laterality Blood (Blood, 04/07/2021 8:43 AM 04/07/20 Venous) CDT 10:47 AM CDT Fredo Cantrell M.D. LAB MICROBIOLOGY - BLOOD ORD ERABLES Performing Organization Address City/State/ZIP Code Phon e Number [facility] [address] [place] [address] [facility] [place] [address] Laboratory Medicine and Pathology [address] [place] [address] Dr. [place] HBs Antibody, Serum (04/07/2021 8:43 AM CDT) athologist Signature HBs Antibody, Negative 04/07/2021 [facility] S 11:59 AM CDT Comment: Patient is presumed to be not immune to infection with HBV. ----REFERENCE VALUE---- Unvaccinated: Negative Vaccinated: Positive HBs Antibody, Quantitative, S <5.0 mIU/mL 04/07/2021 11:59 AM CDT [facility] Comment: ----REFERENCE VALUE---- Unvaccinated: <5.0 Vaccinated: >=12.0 Specimen Anatomical Collection Method Collection Time Receive d Time (Source) Location / / Volume Laterality Blood (Blood, 04/07/2021 8:43 AM 04/07/20 Venous) CDT 10:47 AM CDT Fredo Cantrell M.D. LAB MICROBIOLOGY - BLOOD ORD ERABLES Performing Organization Address City/State/ZIP Code Phon e Number [address] [place], [place] [address] [facility] [place] [address] Laboratory Medicine and Pathology [address] [place] [address] Dr. [place] Hepatitis A IgM Ab, Serum (04/07/2021 8:43 AM CDT) athologist Signature Hepatitis A Negative Negative 04/07/2021 [facility] IgM Ab, S 11:38 AM CDT Comment: Result does not exclude the possibility of exposure to hepatitis A virus. ??Antibody level duri ng early infection stage may be below the limit of detectio n of the assay. Specimen Anatomical Collection Method Collection Time Receive d Time (Source) Location / / Volume Laterality Blood (Blood, 04/07/2021 8:43 AM 04/07/20 Venous) CDT 10:47 AM CDT Fredo Cantrell M.D. LAB MICROBIOLOGY - BLOOD ORD ERABLES Performing Organization Address City/State/ZIP Code Phon e Number [address] [place], [place] [address] [facility] [place] [address] Laboratory Medicine and Pathology [address] [place] Hepatitis A IgG Ab, Serum (04/07/2021 8:43 AM CDT) P athologist Signature Hepatitis A Negative 04/07/2021 [facility] IgG Ab, S 11:38 AM CDT Comment: Result indicates no past exposure or imm unity to hepatitis A infection. ?? ----REFERENCE VALUE---- Unvaccinated: Negative Vaccinated: Positive Specimen Anatomical Collection Method Collection Time Receive d Time (Source) Location / / Volume Laterality Blood (Blood, 04/07/2021 8:43 AM 04/07/20 Venous) CDT 10:47 AM CDT Fredo Cantrell M.D. LAB MICROBIOLOGY - BLOOD ORD ERABLES Performing Organization Address City/[facility] Phon e Number [facility] [address] [place], [place] [address] [facility] [place] [address] Laboratory Medicine and Pathology [address] [place] [address] Dr. [place] (ABNORMAL) Prothrombin Time (PT) (04/07/2021 8:43 AM CDT) Patholo gist Method Time Signature Prothrombin 30.6 (H) 9.4 - 12.5 04/07/2021 DTL Time, P sec 9:14 AM CDT INR 2.7 0.9 - 1.1 04/07/2021 DTL 9:14 AM CDT Comment: ----ADDITIONAL INFORMATION---- Standard intensity warfarin therapeutic range: 2.0 to 3.0 ?? High intensity warfarin therapeutic rang e: 2.5 to 3.5 Specimen Anatomical Collection Method Collection Time Receive d Time (Source) Location / / Volume Laterality Blood (Blood, 04/07/2021 8:43 AM 04/07/20 8:57 Venous) CDT AM CDT Fredo Cantrell M.D. LAB BLOOD ADD-ON Performing Organization Address City/State/ZIP Code Phon e Number [facility] - [address] [place], [place] [address] [facility] [place] [address] Laboratories-[facility] [address] Hemoglobin A1c (04/07/2021 8:43 AM CDT) P athologist Signature Hemoglobin A1c, 5.4 4.0 - 5.6 04/07/2021 DTL B % 9:43 AM CDT Specimen Anatomical Collection Method Collection Time Receive d Time (Source) Location / / Volume Laterality Blood (Blood, 04/07/2021 8:43 AM 04/07/20 8:56 Venous) CDT AM CDT Fredo Cantrell M.D. LAB BLOOD ADD-ON Performing Organization Address City/State/ZIP Code Phon e Number [facility] - [address] [place], [place] [address] [facility] [place] [address] Laboratories-[facility] [address] (ABNORMAL) CBC with Differential, Blood (04/07/2021 8:43 AM CDT) Patholo gist Method Time Signature Hemoglobin 13.5 11.6 - 04/07/2021 DTL 15.0 g/dL 9:15 AM CDT Hematocrit 43.0 35.5 - 04/07/2021 DTL 44.9 % 9:15 AM CDT Erythrocytes 4.52 3.92 - 04/07/2021 DTL 5.13 9:15 AM CDT x10(12)/L MCV 95.1 78.2 - 04/07/2021 DTL 97.9 fL 9:15 AM CDT RBC Distrib Width 13.9 12.2 - 04/07/2021 DTL 16.1 % 9:15 AM CDT Platelet Count 154 (L) 157 - 371 04/07/2021 DTL x10(9)/L 9:15 AM CDT Leukocytes 6.5 3.4 - 9.6 04/07/2021 DTL x10(9)/L 9:15 AM CDT Neutrophils 4.70 1.56 - 04/07/2021 DTL 6.45 9:15 AM CDT x10(9)/L Lymphocytes 1.06 0.95 - 04/07/2021 DTL 3.07 9:15 AM CDT x10(9)/L Monocytes 0.59 0.26 - 04/07/2021 DTL 0.81 9:15 AM CDT x10(9)/L Eosinophils 0.08 0.03 - 04/07/2021 DTL 0.48 9:15 AM CDT x10(9)/L Basophils 0.04 0.01 - 04/07/2021 DTL 0.08 9:15 AM CDT x10(9)/L Specimen Anatomical Collection Method Collection Time Receive d Time (Source) Location / / Volume Laterality Blood (Blood, 04/07/2021 8:43 AM 04/07/20 8:56 Venous) CDT AM CDT Fredo Cantrell M.D. LAB BLOOD ADD-ON Performing Organization Address City/[facility]/ZIP Code Phon e Number [facility] - [address] [place], [place] [address] [place] [address] Laboratories-[address] (ABNORMAL) Troponin T, 5th Generation (04/07/2021 8:43 AM CDT) P athologist Signature Troponin T, 5th 32 (H) <=10 ng/L 04/07/2021 DTL gen 10:10 AM CDT Specimen Anatomical Collection Method Collection Time Receive d Time (Source) Location / / Volume Laterality Blood (Blood, 04/07/2021 8:43 AM 04/07/20 8:58 Venous) CDT AM CDT Fredo Cantrell M.D. LAB BLOOD ADD-ON Performing Organization Address City/[facility]/ZIP Code Phon e Number [facility] - 200 [place], [place] [address] [place] [address] Phosphorus Inorganic (04/07/2021 8:43 AM CDT) P athologist Signature Phosphorus 3.5 2.5 - 4.5 04/07/2021 DTL (Inorganic), S mg/dL 9:40 AM CDT Specimen Anatomical Collection Method Collection Time Receive d Time (Source) Location / / Volume Laterality Blood (Blood, 04/07/2021 8:43 AM 04/07/20 8:58 Venous) CDT AM CDT Fredo Cantrell M.D. LAB BLOOD ADD-ON Performing Organization Address City/State/ZIP Code Phon e Number [facility] - [address] [place], [place] [address] [facility] [place] [address] Laboratories-[address] (ABNORMAL) Parathyroid Hormone (PTH) (04/07/2021 8:43 AM CDT) Analysis Performed At Patho logist Time Signature Parathyroid 281 (H) 15 - 65 04/07/2021 DTL Hormone (PTH), S pg/mL 10:19 AM CDT Specimen Anatomical Collection Method Collection Time Receive d Time (Source) Location / / Volume Laterality Blood (Blood, 04/07/2021 8:43 AM 04/07/20 8:58 Venous) CDT AM CDT Fredo Cantrell M.D. LAB BLOOD ADD-ON Performing Organization Address City/State/ZIP Code Phon e Number [facility] - [address] [place] [address] [place] [address] [place] [address] Laboratories-[address] (ABNORMAL) Lipid Panel (04/07/2021 8:43 AM CDT) P athologist Signature Cholesterol, 179 mg/dL 04/07/2021 DTL Total 9:53 AM CDT Comment: ----REFERENCE VALUE---- Desirable: < 200 Borderline high: 200 - 239 High: > or = 240 Triglycerides 192 (H) mg/dL 04/07/2021 9:53 AM CDT DTL Comment: ----REFERENCE VALUE---- Normal: <150 Borderline high: 150-199 High: 200-499 Very high: > or =500 Cholesterol, HDL, S 52 >=50 mg/dL 04/07/2021 9:53 AM CDT DTL Calculated LDL 89 mg/dL 04/07/2021 9:53 AM CDT DT L Comment: ----REFERENCE VALUE---- Desirable: <100 mg/dL Above Desirable: 100-129 mg/dL Borderline High: 130-159 mg/dL High: 160-189 mg/dL Very High: >=190 mg/dL Cholesterol, Non-HDL, Calculated 127 mg/dL 021 9:53 AM CDT DTL Comment: ----REFERENCE VALUE---- Desirable: <130 Above Desirable: 130-159 Borderline high: 160-189 High: 190-219 Very high: > or =220 Specimen Anatomical Collection Method Collection Time Receive d Time (Source) Location / / Volume Laterality Blood (Blood, 04/07/2021 8:43 AM 04/07/20 8:58 Venous) CDT AM CDT Fredo Cantrell M.D. LAB BLOOD ADD-ON Performing Organization Address City/[facility] Phon e Number [facility] - [address] (ABNORMAL) Hepatic Function Panel (04/07/2021 8:43 AM CDT) [facility] Method Time Signature Bilirubin, Total, S 0.3 <=1.2 04/07/2021 DTL mg/dL 9:40 AM CDT Bilirubin, Direct, S <0.2 0.0 - 0.3 04/07/2021 DTL mg/dL 9:40 AM CDT Aspartate 15 8 - 43 04/07/2021 DTL Aminotransferase U/L 9:40 AM CDT (AST), S Alanine 12 7 - 45 04/07/2021 DTL Aminotransferase U/L 9:40 AM CDT (ALT), S Alkaline 185 (H) 35 - 104 04/07/2021 DTL Phosphatase, S U/L 9:40 AM CDT Albumin, S 4.5 3.5 - 5.0 04/07/2021 DTL g/dL 9:40 AM CDT Protein, Total, S 6.9 6.3 - 7.9 04/07/2021 DTL g/dL 9:40 AM CDT Specimen Anatomical Collection Method Collection Time Receive d Time (Source) Location / / Volume Laterality Blood (Blood, 04/07/2021 8:43 AM 04/07/20 8:58 Venous) CDT AM CDT Fredo Cantrell M.D. LAB BLOOD ADD-ON Performing Organization Address City/State/[facility] Code Phon e Number [facility] - [address] [place], [place] [address] [place] [address] [place] [address] Glucose, Random (04/07/2021 8:43 AM CDT) athologist Signature Glucose, S 99 70 - 140 04/07/2021 DTL mg/dL 9:40 AM CDT Specimen Anatomical Collection Method Collection Time Receive d Time (Source) Location / / Volume Laterality Blood (Blood, 04/07/2021 8:43 AM 04/07/20 8:58 Venous) CDT AM CDT Fredo Cantrell M.D. LAB BLOOD TROPONIN Performing Organization Address City/[facility] Phon e Number [facility] - [address] [place], [place] [address] [place] [address] [place] [address] Laboratories-[address] Calcium, Total (04/07/2021 8:43 AM CDT) athologist Signature Calcium, Total, 9.5 8.8 - 10.2 04/07/2021 DTL S mg/dL 9:40 AM CDT Specimen Anatomical Collection Method Collection Time Receive d Time (Source) Location / / Volume Laterality Blood (Blood, 04/07/2021 8:43 AM 04/07/20 8:58 Venous) CDT AM CDT Fredo Cantrell M.D. LAB BLOOD ADD-ON Performing Organization Address City/[facility] Code Phon e Number [facility] - [address] [place], [place] [address] [place] [address] [place], [place] [id number] [place] [address] (ABNORMAL) Creatinine with Estimated GFR (04/07/2021 8:43 AM CDT) [facility] Time Signature Creatinine 6.97 (H) 0.59 - 04/07/2021 DTL 1.04 mg/dL 9:53 AM CDT eGFR-Non <15 (L) >=60 04/07/2021 DTL Black/ mL/min/BSA 9:53 AM CDT Libyan Comment: ----ADDITIONAL INFORMATION---- Estimated GFR calculated using the 2009 CKD_EPI creatinine equation. eGFR-Black/ <15 (L) >=60 mL/min/BSA 2020 9:53 AM CDT DTL Comment: ----ADDITIONAL INFORMATION---- Estimated GFR calculated using the 2009 CKD_EPI creatinine equation. Specimen Anatomical Collection Method Collection Time Receive d Time (Source) Location / / Volume Laterality Blood (Blood, 04/07/2021 8:43 AM 04/07/20 8:58 Venous) CDT AM CDT Fredo Cantrell M.D. LAB BLOOD ADD-ON Performing Organization Address City/[facility] Phon e Number [facility] - [address] [place], [place] [address] [facility] [place] [address] Laboratories-[address] (ABNORMAL) BUN (Blood Urea Nitrogen) (04/07/2021 8:43 AM CDT) athologist Signature BUN (Blood Urea 33 (H) 6 - 21 04/07/2021 DTL Nitrogen), S mg/dL 9:40 AM CDT Specimen Anatomical Collection Method Collection Time Receive d Time (Source) Location / / Volume Laterality Blood (Blood, 04/07/2021 8:43 AM 04/07/20 8:58 Venous) CDT AM CDT Fredo Cantrell M.D. LAB BLOOD ADD-ON Performing Organization Address City/[facility] Code Phon e Number [facility] - [address] [place], [place] [address] [facility] [place] [address] Laboratories-[address] Electrolyte (Chem 4) Panel (04/07/2021 8:43 AM CDT) athologist Signature Potassium, P 4.6 3.6 - 5.2 04/07/2021 METH mmol/L 9:05 AM CDT Sodium, P 137 135 - 145 04/07/2021 METH mmol/L 9:05 AM CDT Chloride, P 99 98 - 107 04/07/2021 METH mmol/L 9:05 AM CDT Bicarbonate, P 23 22 - 29 04/07/2021 METH mmol/L 9:05 AM CDT Anion Gap, P 15 7 - 15 04/07/2021 METH 9:05 AM CDT Specimen Anatomical Collection Method Collection Time Receive d Time (Source) Location / / Volume Laterality Blood (Blood, 04/07/2021 8:43 AM 04/07/20 8:51 Venous) CDT AM CDT Fredo Cantrell M.D. LAB BLOOD ADD-ON Performing Organization Address City/State/ZIP Code Phon e Number [facility] - [address] [place], [place] [address] [facility] [place] [address] Laboratories-[facility] [address] QuantiFERON-Tb Gold Plus, Blood (04/07/2021 8:42 AM CDT) athologist Signature QuantiFERON-TB Negative Negative 04/08/2021 SDSC Gold Plus 12:59 PM CDT Result Comment: No interferon-gamma response to M. tuber culosis antigens was detected. Latent infection with M. tuberculosis is unlikely. A single ne gative result does not exclude infection with M. tuber culosis. In patients at high risk for M.tuberculo sis infection, a second test should be considered in ac cordance with the 2017 ATS/IDSA/CDC Clinical Prac winsome Guidelines for Diagnosis of Tuberculosis in Adults and Children [Sruthi LORENZ et. al. Clin. Infect. Dis. 2017;64(2):111-115]. The reference range for the 'TB1 Ag josselyn s Nil Result' and 'TB2 Ag minus Nil Result' is an Inte rferon-gamma level <0.35 IU/mL. TB1 Ag minus Nil Result 0.00 IU/mL 04/08/2021 12:59 PM CDT SDSC TB2 Ag minus Nil Result 0.00 IU/mL 04/08/2021 12:59 PM CDT SDSC Mitogen minus Nil Result 6.77 IU/mL 04/08/2021 12:5 9 PM CDT SDSC Nil Result 0.01 IU/mL 04/08/2021 12:59 PM CDT SDSC Specimen Anatomical Collection Method Collection Time Receive d Time (Source) Location / / Volume Laterality Blood (Blood, 04/07/2021 8:42 AM 04/07/20 Venous) CDT 10:[address] [facility] SUPPORT FELISHA R - 04/08/2021 12:59 PM CDT Specimen Information: Specimen ID: [id number] Specimen Type: Blood Specimen Collection Start Date: 04/07/20 ??8:43 AM Specimen Received Date: 04/07/2021 10:38 AM Specimen ID: [id number] Specimen Type: Blood Specimen Collection Start Date: 04/07/20 ??8:42 AM Specimen Received Date: 04/07/2021 10:38 AM Specimen ID: [id number] Specimen Type: Blood Specimen Collection Start Date: 04/07/20 ??8:42 AM Specimen Received Date: 04/07/2021 10:38 AM Specimen ID: [id number] Specimen Type: Blood Specimen Collection Start Date: 04/07/20 ??8:42 AM Specimen Received Date: 04/07/2021 10:38 AM Fredo Cantrell M.D. LAB MICROBIOLOGY - BLOOD ORD ERABLES Performing Organization Address City/State/ZIP Code Phon e Number [facility] [address] [place] [address] SUPPORT CENTER [facility] [place] [address] Laboratory Medicine and Pathology [address] [place] documented in this encounter Visit Diagnoses Diagnosis Chronic Kidney Disease Stage 5 GFR Less Than 15 Dialysis Dependent (HCC) - Primary Pretransplant Recipient Evaluation Exam Abnormal Finding Of Blood Chemistry Unsp ecified Hypertension Essential Primary Pretransplant Recipient Evaluation Exam Chronic Kidney Disease Stage 5 GFR Less Than 15 Dialysis Dependent (HCC) Hypertension Essential Primary Pretransplant Recipient Evaluation Exam Chronic Kidney Disease Stage 5 GFR Less Than 15 Dialysis Dependent (HCC) documented in this encounter Additional Health Concerns Assessment Noted Time PHQ-9 Depression Total Score: 4 01/30/2019 12:13 PM CD T documented as of this encounter Care Teams Home Care Manager Rn Relationship Specialty Start Date End Date Elsewhere, Pcp PCP - General 09/17/19 documented as of this encounter
--- OUTSIDE RECORDS SUMMARY | 2022-05-25 13:07 | XMS_ITS | Encounter Summary ---
:1960 Author Organization [facility] Address [address] [place] [address] Care Team Providers Name Role Phone Elsewhere, Pcp Primary Care Provider Unavailable Encounter Details Date Type Department Care Team Description 03/10/2021 Orders Only Ata Dick Guilherme, Yvonne Bautista Kidney Disease; Center for M.D. Pretransplant Recipient Evaluation Exam Transplantation and [address] [place] [address] Clinical Regeneration in [place], [place] [address] [place] [address] [place] [address] (Work) [phone] Social History Tobacco Use Types Packs/Day Years [...] How often do you attend mandaeism or catholic 1 to 4 times per [...] Nicholas APRN, C.N.P., D.N.P., M.S.N. [address] [place] [phone] (Nicolas wen) 07/31/2022 Lab Laboratory Medicine Tony Rubalcava M. B., ChDaviBDavi, M.Michelle. [address] [place] [phone] (Nicolas wen) 07/31/2022 Lab Laboratory Medicine Tony Rubalcava M. B., ChDaviBaDvi, MElvia. [address] [place] [phone] (Nicolas wen) 07/31/2022 Office Visit Transplant Tony Rubalcava M.B., ChBurke, MElvia. [address] [place] [phone] (Nicolas wen) 07/31/2022 Appointment Radiology Tony Rubalcava M.B., Sydnie, Mukund [address] [place], [place] [phone] (Wo rk) 08/01/2022 Office Visit Transplant Tony Rubalcava M.B., Sydnie, Mukund [address] [place], [place] [phone] (Wo rk) 08/01/2022 Clinical Support Transplant Tony Rubalcava M.B., Sydnie, Mukund [address] [place], [place] [phone] (Wo rk) documented as of this encounter Results HLA Class II SAB Antibody Screen (03/23/2021 5:15 AM CDT) [facility] Method Time Signature Class II SAB Positive Not Applicable 03/28/2021 DBB8 Overall 1:34 PM CDT Result Class II SAB 37 03/28/2021 DBB8 cPRA 1:34 PM CDT Comment: ----ADDITIONAL INFORMATION---- This PRA is a [facility] calculated PRA. PRA is based on the antigen frequency of the Tissue Typing patient a nd donor population. ??PRA reflects all antibodie s with a normalized value (MFI) above 300. SAB DRB1 Specificity NONE 03/28/2021 1:34 PM CDT DBB8 SAB DAM424 Specificity NONE 03/28/2021 1:34 P M CDT [...] ----ADDITIONAL INFORMATION---- Method: Luminex Flow Cytometry CLIA: [id number] ??CLIA Open Hearth Furnace Operator Helper: SHANTA LOYD MD,PhD Specimen Anatomical Collection Method Collection Time Receive d Time (Source) Location / / Volume Laterality Blood (Blood, 03/23/2021 5:15 AM 03/24/20 Venous) CDT 11:40 AM CDT Twin Edinson Vanegas M.D. LAB HLA ORDERABLES Performing Organization Address City/State/ZIP Code Phon e Number [facility] - [address] [place], [place] [address] [facility] [place]BB8 [place] [address] Laboratories-[facility] [place] [address] [facility] HLA Class I SAB Antibody Screen (03/23/2021 5:15 AM CDT) [facility] Method Time Signature Class I SAB Positive Not Applicable 03/28/2021 DBB8 Overall 1:21 PM CDT Result Class I SAB 24 03/28/2021 DBB8 cPRA 1:21 PM CDT Comment: ----ADDITIONAL INFORMATION---- This PRA is a [facility] calculated PRA. PRA [...] DBB8 Comment: 51(51:01)[5718], 49(49:01)[3449], 51(51: 02)[2933], 38(38:01)[2321], 63(15:16)[2181], 59(59: 01)[2102], 52(52:01)[2094], 78(78:01)[2043], 77(15: 13)[1697], 57(57:01)[1658], 57(57:03)[1645], 53(53: 01)[1506], 75(15:02)[1447], 58(58:01)[1255], 27(27: 05)[531] Format: Serologic Eq.(B Mol. Allele)[Nor malized MFI] NOTE: Data is displayed in descending or kristi by Mean Fluorescence Intensity (MFI). ??Serologic equivalents can be di splayed multiple times for different molecular alleles. SAB C Specificity NONE 03/28/2021 1:21 PM CDT DBB8 Comment: ----ADDITIONAL INFORMATION---- Method: Luminex Flow Cytometry CLIA: [id number] ??CLIA Open Hearth Furnace Operator Helper: SHANTA LOYD MD,PhD Specimen Anatomical Collection Method Collection Time Receive d Time (Source) Location / / Volume Laterality Blood (Blood, 03/23/2021 5:15 AM 03/24/20 21 Venous) CDT 11:40 AM CDT Twin Vanegas M.D. LAB HLA ORDERABLES Performing Organization Address City/State/ZIP Code Phon e Number [facility] - [address] [place], [place] [address] [facility] [place] [address] Laboratories-[facility] [place] [address] documented in this encounter Visit Diagnoses Diagnosis Chronic Kidney Disease Pretransplant Recipient Evaluation Exam documented in this encounter Additional Health Concerns Assessment Noted Time PHQ-9 Depression Total Score: 4 01/30/2019 12:13 PM CD T documented as of this encounter Care Teams Drill Bit Sharpener Relationship Specialty Start Date End Date Elsewhere, Pcp PCP - General 09/17/19 documented as of this encounter
--- OUTSIDE RECORDS SUMMARY | 2022-05-25 13:07 | XMS_ITS | Encounter Summary ---
:1960 Author Organization [facility] Address [address] [place] [address] Care Team Providers Name Role Phone Elsewhere, Pcp Primary Care Provider Unavailable Reason for Visit Reason Comments Tacrolimus Adjustment Protocol Encounter Details Date Type Department Care Team Description 03/07/2021 Clinical [facility] for Sandra J, Adjustment Transplantation and R.N., C.C.T. C. Protocol Clinical Regeneration [address] [facility] in [facility] [address] [place] [address] [place], [place] (Work) [address] [phone] Social History Tobacco Use Types Packs/Day Years [...] How often do you attend lutheran or yazdanism 1 to 4 times per [...] Encounter - Sandra Peterson R.N., C.C.T.C. - 03/07/2021 11:14 AM CDT Patient notified via phone. Telephone Encounter - Britany Hendricks Pharm.D., R.Ph. - 03/07/2021 10:31 AM CDT Transplanted Organ and Date: 04/28/2008 (Kidney) team number: Shira Díaz, TXP POST KIDNEY NURSE TEAM 3 ROCH ?? Current tacrolimus goal level: 4-6ng/ml Last tacrolimus level and date: 10.9 ng/ml on 02/28 Current tacrolimus formulation and dose: 3 mg twice a day Any other pertinent information related to above (please comment on any pertinent answers above)? 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 09/27: 9.4 ng/ml (4-6) on patient reports taking medications before lab draw 05/17: 5.1 ng/ml (4-6) on 3mg twice daily 03/22: 9.8 ng/ml (6-8) on patient not taking medication appropriately every 12 hours - to be redrawn 02/09/2020: 3.4 ng/ml (6-8) on 3mg AM, 2mg PM - dose increased to 3mg twice daily Plan: Decrease tacrolimus to 3mg AM, 2mg PM. Recheck tacrolimus level in 1-2 weeks. Updated prescription sent to [facility] ?? Telephone Encounter - Sandra Peterson R.N., C.C.T.C. - 03/07/2021 9:32 AM CDT Transplanted Organ and Date:04/28/2008 (Kidney) team number: Shira Díaz, TXP POST KIDNEY NURSE TEAM 3 ROCH Current tacrolimus goal level:4-6ng/ml Last tacrolimus level and date: 10.9 ng/ml on 02/28 Current tacrolimus formulation and dose:3 mg twice a day Was the tacrolimus dose changed within the last 2 weeks?: No Missed doses in last week: No Medications changes in last week: No Vomiting?No Diarrhea? No New onset BANDA? No New onset tremor? No Pharmacy patient uses for immunosuppression: [facility] Any other pertinent information related to above (please comment on any pertinent answers above)? 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 [address] [place] [phone] (Wo rk) 07/31/2022 Lab Laboratory Medicine Tony Rubalcava M. B., Ch.B., M.D. [address] [place] [phone] (Wo rk) 07/31/2022 Lab Laboratory Medicine Tony Rubalcava M. B., Sydnie, Mukund [address] [place] [phone] (Wo rk) 07/31/2022 Office Visit Transplant Tony Rubalcava M.B., Sydnie, Mukund [address] [place] [phone] (Wo rk) 07/31/2022 Appointment Radiology Tony Rubalcava M.B., Sydnie, Mukund [address] [place] [phone] (Wo rk) 08/01/2022 Office Visit Transplant Tony Rubalcava M.B., Sydnie, MDebra [address] [place] [phone] (Wo rk) 08/01/2022 Clinical Support Transplant Tony Rubalcava M.B., Sydnie, MDebra [address] [place] [phone] (Wo rk) documented as of this encounter Visit Diagnoses Not on filedocumented in this encounter Additional Health Concerns Assessment Noted Time PHQ-9 Depression Total Score: 4 01/30/2019 12:13 PM CD T documented as of this encounter Care Teams Spinning Doffer Relationship Specialty Start Date End Date Elsewhere, Pcp PCP - General 09/17/19 documented as of this encounter
--- OUTSIDE RECORDS SUMMARY | 2022-05-25 13:07 | XMS_ITS | Encounter Summary ---
:1960 Author Organization [facility] Address [address] [place] [address] Care Team Providers Name Role Phone Elsewhere, Pcp Primary Care Provider Unavailable Encounter Details Date Type Department Care Team Description 03/14/2021 Orders Only Division of Nephrology and Neymar Martínez Hypertension in [place], ., D.O. [place] 200 [facility] 200 [place] [address] [phone] (Wo rk) Social History Tobacco Use Types [...] How often do you attend mandaeism or congregation 1 to 4 times per [...] Nicholas APRN C.N.P., D.N.P., M.S.N. [address] [place] [phone] (Wo rk) 07/31/2022 Lab Laboratory Medicine Tony Rubalcava M. B., Sydnie, MDebra [address] [place] [phone] (Wo rk) 07/31/2022 Lab Laboratory Medicine Tony Rubalcava M. B., ChBurke, MDebra [address] [place] [phone] (Wo rk) 07/31/2022 Office Visit Transplant Tony Rubalcava M.B., Sydnie, MDebra [address] [place] [phone] (Wo rk) 07/31/2022 Appointment Radiology Tony Rubalcava M.B., Ch.Mukund Richards [address] [place] [address] [phone] (Wo rk) 08/01/2022 Office Visit Transplant Tony Rubalcava M.B., Mukund O[place]ole [address] [place] [address] 55 [phone] (Wo rk) 08/01/2022 Clinical Support Transplant Tony Rubalcava M.B., Sydnie, Mukund [address] [place] [phone] (Wo rk) documented as of this encounter Visit Diagnoses Not on filedocumented in this encounter Additional Health Concerns Assessment Noted Time PHQ-9 Depression Total Score: 4 01/30/2019 12:13 PM CD T documented as of this encounter Care Teams Railroad Supervisor Of Engines Relationship Specialty Start Date End Date Elsewhere, Pcp PCP - General 09/17/19 documented as of this encounter
--- OUTSIDE RECORDS SUMMARY | 2022-05-25 13:07 | XMS_ITS | Encounter Summary ---
:1960 Author Organization [facility] Address [address] [place] [address] Care Team Providers Name Role Phone Elsewhere, Pcp Primary Care Provider Unavailable Reason for Referral Outpatient (Routine) - Closed Specialty Diagnoses / Procedures Referred By Contact Refer red To Contact Pulmonary Medicine Shanon Summers [place] M.D. [address] [place] [address] Referral ID Status Reason Start Date Expiration Date Visits Requ ested Visits Authorized [id number] Closed 04/07/2021 04/07/2022 1 1 Reason for Visit Reason Comments Transplant Recipient Evaluation Appointment Request (Routine) - Closed Specialty Diagnoses / Procedures Referred By Contact Refer red To Contact Transplant Kidney Diagnoses Failure Renal Pancreas Referral ID Status Reason Start Date Expiration Date Visits Requ ested Visits Authorized [id number] Closed 02/24/2021 02/24/2022 1 1 Encounter Details Date Type Department Care Team Description 04/07/2021 Office Visit Shanon Salamanca retransplant Keanu Yap M.D. 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 [phone] 200 [facility] [phone] [place], [place] (Work) [phone] Social History Tobacco Use Types Packs/Day Years [...] How often do you attend hoahaoism or latter day 1 to 4 times [...] Sign Reading Time Taken Comments Blood Pressure 96/62 04/07/2021 1:15 PM CDT Pulse 78 04/07/2021 1:15 PM CDT Temperature 36.2 ??C (97.2 ??F) 04/07/2021 1:15 PM CDT Respiratory Rate - - Oxygen Saturation - - Inhaled Oxygen Concentration - - Weight 98.4 kg (216 lb 14.9 oz) 04/07/2021 1:15 PM CDT Height 163.8 cm (5' 4.49) 04/07/2021 1:15 PM CDT Body Mass Index 36.67 04/07/2021 1:15 PM CDT documented in this encounter Progress Notes Shanon Summers M.D. - 04/07/2021 1:30 PM CDT Chief Complaint/Reason for Visit Waitlist reevaluation for kidney transplant History of Present Illness: Shabnam Wray is a pleasant 60 y.o. 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 She resumed dialysis in 2016 and has been on our transplant waiting list since 2018. She has no history of cardiopulmonary disease, liver disease, serious infections, cancers, or diabetes. She continues to undergo ureteral stent exchanges every 3 monthsand remains on triple immunosuppressive therapy. However, she states that her urine output is no longer robust, and she is not sure she will be able to provide a urine sample today. She denies any interim hospitalizations over the past year. Review of Systems: She voids approximately twice per day. She quit smoking 4 months ago. Past Medical/Surgical History: Past Medical History: Diagnosis Date ??? Amblyopia Bilateral 1964 ??? Blood Transfusion No Diagnosis 2007 ??? Depressive Disorder ??? Dialysis Dependent (HCC) ??? Eczema 1964 ??? Gastroesophageal Reflux Disease NOS ??? Hyperlipidemia 2016 ??? Hypertension NOS ??? Other Specified Health Status 2008 Kidney failure ??? Renal Disease ??? Transplant Renal (HCC) Past Surgical History: Procedure Laterality Date ??? CREATION ARTERIOVENOUS FISTULA UPPER EXTREMITY - OTHER Right 05/06/2019 Procedure: Right arm brachio-basilic AV graft using 6mm propaten graft; Surgeon: Guillermo Yu M.B.B.SDavi; Location: [facility] OR ??? CREATION OF BRACHIOBASILIC ARTERIOVENOUS FISTULA [...] PLACEMENT 12/17/2014 balloon dilation and stent placement Social History: Social History Socioeconomic History ??? Marital status: Spouse name: Not on file ??? Number of children: Not on file ??? Years of education: Not on file ??? Highest education level: GED or equivalent Occupational History ??? Not on file Tobacco Use ??? Smoking status: Current Every Day Smoker Packs/day: 0.50 Years: 30.00 Pack years: 15.00 Types: Cigarettes Start date: 01/29/1975 ??? Smokeless tobacco: Never Used Vaping Use ??? Vaping Use: never used Substance and Sexual Activity ??? Alcohol use: No ??? Drug use: No ??? Sexual activity: Defer Other Topics Concern ??? Not on file [...] Lack of Transportation (Non-Medical): No Physical Activity: Insufficiently Active ??? Days of Exercise per Week: 1 day ??? Minutes of Exercise per Session: 10 min Stress: Stress Concern Present ??? Feeling of Stress : To some extent Social Connections: Moderately Isolated ??? Frequency of Communication with Friends and Family: Three times a week ??? Frequency of Social Gatherings with Friends and Family: Once a week ??? Attends Hoahaoism Services: More than 4 times per year ??? Active Member of Clubs or Organizations: Not on file ??? Attends Club or Organization Meetings: Never ??? Marital Status: Intimate Partner Violence: ??? Fear of Current or Ex-Partner: ??? Emotionally Abused: ??? Physically Abused: ??? Sexually Abused: She lives with her father. Approximately 20 pack year smoking history. She quit smoking 4 months ago. She denies alcohol use. No regular exercise program. Family History: Family History Problem Relation Age of Onset ??? No Known Problems Mother ??? No Known Problems Father Medications: Current Outpatient Medications: ??? acetaminophen (TYLENOL) 500 mg tablet, Take 2 tablets (1,000 mg total) by mouth every 6 (six) hours as needed for pain., Disp: , Rfl: ??? amLODIPine (NORVASC) 5 mg tablet, Take 1 tablet (5 mg total) by mouth every evening., Disp: 90 tablet, Rfl: 3 ??? Bystolic 10 mg tablet, TAKE 1 TABLET(10 MG) BY MOUTH DAILY, Disp: 90 tablet, Rfl: 3 ??? calcium carbonate (TUMS) 500 mg (200 mg calcium) chewable tablet, Chew 2 tablets 2 (two) times aday with meals. Lunch and dinner. , Disp: , Rfl: ??? hydrocortisone (for_HYTONE) 2.5 % cream, Apply [...] DAILY, Disp: 90 tablet, Rfl: 3 ??? sevelamer [...] Disp: 450 capsule, Rfl: 3 ??? warfarin (Coumadin) 2 mg tablet, Take 5 mg by mouth daily. 5 mg daily , Disp: , Rfl: ??? cefdinir (OMNICEF) 300 mg capsule, Take 1 capsule (300 mg total) by mouth as directed. Take 1 capsule every other day for 3 days. Do not take on the day of procedure. (Patient not taking: Reported on 04/07/2021 ), Disp: 3 capsule, Rfl: 0 ??? gabapentin (NEURONTIN) 100 mg capsule, Take 3 capsules (300 mg total) by mouth as directed. 3 johnny 2 in PM, Disp: 450 capsule, Rfl: 3 ??? multivitamin renal failure (DIALYVITE) 100-1 mg tablet, Take 1 tablet by mouth every evening., Disp: 30 tablet, Rfl: 11 Vital Signs: BP 96/62 Pulse 78 Temp 36.2 ??C Ht 163.8 cm Wt 98.4 kg BMI 36.67 kg/m?? Body mass index is 36.67 kg/m??. Physical Examination: General: no apparent distress HEENT: pupils equal and reactive to light bilaterally; normal tympanic membranes bilaterally; oropharynx clear; no cervical lymphadenopathy or thyromegaly Heart: regular rate and rhythm; no murmurs; no carotid bruits Lungs: clear to auscultation bilaterally Abdomen: soft, nontender, nondistended; no hepatosplenomegaly or bruits appreciated; midline reducible hernia, nontender Extremities: no lower extremity edema Mental: alert and oriented x 3 Impression/Report/Plan: Evaluation Summary 1. Cause of renal disease: Other, unknown 2. Need for genetic testing of related donor? No 3. Recurrent risk: possible 4. cPRA: 52 5. Blood Type: O Pos, if B anti A titer: N/A; 6. Previous transplants: Kidney 7. Dialysis: Yes Date: 2016 8. Diabetes?: n/a 9. Pancreas candidate?: No 10. BMI: BMI Readings from Last 1 Encounters: 04/07/21 36.67 kg/m?? 11. Functional status/Karnofsky score: pending 12. Cardiopulmonary evaluation (cTNT, EF % etc): pending 13. History of malignancies: note suggests recent [...] mammogram in 05/2021; colonoscopy up to date 2017 with one 3 mm hyperplastic polyp removed -- next due 2027; no longer receives Pap smears following hysterectomy for fibroids; 20 pack year smoking history, quit 4 months ago -- refer for lung cancer screening 18. Specialized imaging review (MRI for ADPKD, [facility] kidneys, vascular): ultrasound aorta 2018 showed mild [...] pain following fistula placement s/p stimulator placement 09/2020 24. Pending issues: multiple The patient will proceed with waitlist reevaluation and is scheduled to return next week to see Dr. Cantrell. I encouraged the patient to continue to look for potential living donors. Given that her urineoutput has declined significantly, I think it would be reasonable to consider tapering off CellCept and lowering her tacrolimus to 4 ng/mL. We also discussed the pros and cons of stopping serial ureteral stent exchanges within her failed renal allograft. She will discuss these options further with . I will clarify whether she has had a history of melanoma. Information regarding evaluation process and the national and center-specific outcomes, including the transplant center's observed and expected one-year patient and graft survival, national one-year patient and graft survival, as well as the risks, benefits, and alternatives to the evaluation were provided to the patient. Questions regarding the evaluation process were answered. The patient has agreed to proceed with the transplant evaluation and has signed the consent form. The witnessed and signedconsent form has been electronically entered into the patient's medical record. documented in this encounter Plan of Treatment Upcoming Encounters Date Type Specialty Care Team Description 06/01/2022 Telemedicine Pharmacy An Nicholas APRN, C.N.P., D.N.P., M.S.N. [address] [place] [address] [phone] (Wo rk) 07/31/2022 Lab Laboratory Medicine Tony Rubalcava M. B., Sydnie, Mukund [address] [place] [address] [phone] (Wo rk) 07/31/2022 Lab Laboratory Medicine Tony Rubalcava M. B., Sydnie, Mukund [address] [place] [address] [phone] (Wo rk) 07/31/2022 Office Visit Transplant Tony Rubalcava M.B., Sydnie, MDebra [address] [place] [address] [phone] (Wo rk) 07/31/2022 Appointment Radiology Tony Rubalcava M.B., Sydnie, Mukund [address] [place] [address] [phone] (Wo rk) 08/01/2022 Office Visit Transplant Tony Rubalcava M.B., Mukund [place] [address] [place] [address] [phone] (Wo rk) 08/01/2022 Clinical Support Transplant Tony Rubalcava M.B., Mukund [place] [address] [place], [place] [phone] (Wo rk) Scheduled Referrals Name Type Priority Associated Diagnoses Order S chedule PUL Lung Cancer Outpatient Referral Routine Expec rebecca: screening program 04/14/2021 referral - initial (Approxim ate), and annual Expires: 04/07/2024 documented as of this encounter Visit Diagnoses Diagnosis Pretransplant Recipient Evaluation Exam - Primary documented in this encounter Additional Health Concerns Assessment Noted Time PHQ-9 Depression Total Score: 3 04/07/2021 9:37 AM CDT documented as of this encounter Care Teams Belling Machine Operator Relationship Specialty Start Date End Date Elsewhere, Pcp PCP - General 09/17/19 documented as of this encounter
--- OUTSIDE RECORDS SUMMARY | 2022-05-25 13:07 | XMS_ITS | Encounter Summary ---
:1960 Author Organization [facility] Address [address] [place] [address] Care Team Providers Name Role Phone Elsewhere, Pcp Primary Care Provider Unavailable Encounter Details Date Type Department Care Team Description 03/14/2021 Documentation Division of Nephrology and Josr Martínez Hypertension in [place], ., D.O. [place] 200 [facility] 200 [place] [phone] (Wo rk) Social History Tobacco Use Types [...] How often do you attend rastafari or sikhism 1 to 4 times per year 12/23/2021 [...] Progress Notes Steve Martínez Jr., D.O. - 03/14/2021 8:17 AM CDT Care coordination note: Please see [facility] note today, she was seen on dialysis, is complaining of dysuria urgency and frequency, and her voiding patterns have changed with lower urine volumes. I am going to prescribe Bactrim double-strength 1 orally daily for 7 days, to be taken after dialysis. She will cut her warfarin dose in half for the week while she is on the trimethoprim sulfa. documented in this encounter Plan of Treatment Upcoming Encounters Date Type Specialty Care Team Description 06/01/2022 Telemedicine Pharmacy An Nicholas APRN C.N.P., D.N.P., M.S.N. [address] [place] [address] [phone] (Nicolas wen) 07/31/2022 Lab Laboratory Medicine Tony Rubalcava M. B., Yvonne.Maurice, M.Michelle. [address] [place] [address] [phone] (Nicolas wen) 07/31/2022 Lab Laboratory Medicine Tony Rubalcava M. B., Sydnie, Mukund [address] [place] [address] [phone] (Wo rk) 07/31/2022 Office Visit Transplant Tony Rubalcava M.B., Sydnie, Mukund [address] [place] [address] [phone] (Wo rk) 07/31/2022 Appointment Radiology Tony Rubalcava M.B., Sydnie, Mukund [address] [place] [address] [phone] (Wo rk) 08/01/2022 Office Visit Transplant Tony Rubalcava M.B., Sydnie, Mukund [address] [place] [address] [phone] (Wo rk) 08/01/2022 Clinical Support Transplant Tony Rubalcava M.B., Sydnie, Mukund [address] [place] [address] [phone] (Wo rk) documented as of this encounter Visit Diagnoses Not on filedocumented in this encounter Additional Health Concerns Assessment Noted Time PHQ-9 Depression Total Score: 4 01/30/2019 12:13 PM CD T documented as of this encounter Care Teams Pole Climber Relationship Specialty Start Date End Date Elsewhere, Pcp PCP - General 09/17/19 documented as of this encounter
--- OUTSIDE RECORDS SUMMARY | 2022-05-25 13:08 | XMS_ITS | Encounter Summary ---
:1960 Author Organization [facility] Address [address] [place] [id number] Care Team Providers Name Role Phone Elsewhere, Pcp Primary Care Provider Unavailable Encounter Details Date Type Department Care Team Description 01/18/2021 Documentation Division of Nephrology and Debora Regalado R.N. Hypertension in [place], [facility] 1 [place], [place] [address] [place] [phone] [place] [address] [phone] Social History Tobacco Use Types Packs/Day Years [...] How often do you attend faith or scientology 1 to 4 times per [...] documented as of this encounter Progress Notes Debora Regalado R.N. - 01/18/2021 7:[address] Martínez ?? CHIEF COMPLAINT/PURPOSE OF VISIT: REASON FOR REFERRAL: Clotted arterial venous graft, declot procedure needed. HISTORY OF PRESENT ILLNESS ACCESS: Gortex AV Graft Date placed - 04/26/2019 Provider - Dr. Yu ?? LOCATION OF ACCESS: Right upper arm ?? PERTINENT PROCEDURAL HISTORY: Patient referred by Dr. Martínez for declot, fistulogram and angioplasty as indicated. Yesterday morning she presented to dialysis her fistula was found to be clotted. Herlast declot procedure was on 12/20/20, she has had 4 fistulograms before. She??dialyzes at the [facility] unit on a??Sunday, Sunday and Sunday schedule. She has been fasting today and the planwill be to dialyze tomorrow at her home unit. ?? DIABETES: Not diabetic. ?? ANTICOAGULATION: On Coumadin ?? LABORATORY RESULTS: Full panel of most current labs are not available, however a Potassium and INR will be drawn at [facility] prior to this procedure. ? IMPRESSION/REPORT/PLAN ?? SPECIFIC PATIENT INSTRUCTIONS: ?? [facility] Please arrive at 12:30 forlab draw and then report to Elton Cruz MD today, 01/18/21, at 1:30 to be worked in for your procedure. You must have a bread wrapper to drive you home due to the sedation you will receive. You cannot drive for 24 hours after sedation. ?? Please do not eat or drink after midnight the day of your procedure. Your procedure may be canceled or delayed if you do so. It is important to have an empty stomach to avoid problems with sedation. ?? You may take your morning medication with a small amount of water. Bring the rest of your medicines that you take with you. ?? Plan on spending about half to three fourths of the day in [place] for this procedure. There is generally some waiting involved prior to the procedure. ?? Post Access Instructions: Please plans to dialyze tomorrow at her local home unit. ? Appointment scheduled via Interventional Radiology. Approval to add procedure was given by Dr. Monreal. documented in this encounter Plan of Treatment Upcoming Encounters Date Type Specialty Care Team Description 06/01/2022 Telemedicine Pharmacy An Nicholas APRN, C.N.P., D.N.P., M.S.N. [address] [place] [address] [phone] (Wo rk) 07/31/2022 Lab Laboratory Medicine Tony Rubalcava M. B., ChBurke, M.Michelle. [address] [place] [address] 55 [phone] (Wo rk) 07/31/2022 Lab Laboratory Medicine Tony Rubalcava M. B., Ch.B., MElvia. [address] [place] [address] 55 [phone] (Wo rk) 07/31/2022 Office Visit Transplant Tony Rubalcava M.B., Sydnie, MElvia. [address] [place] [address] 55 [phone] (Wo rk) 07/31/2022 Appointment Radiology Tony Rubalcava M.B., Sydnie, Mukund [address] [place] [address] 55 [phone] (Wo rk) 08/01/2022 Office Visit Transplant Tony Rubalcava M.B., [place]und [place] [address] [place] [address] [phone] (Wo rk) 08/01/2022 Clinical Support Transplant Tony Rubalcava M.B., Sydnie, Mukund [address] [place] [address] [phone] (Wo rk) documented as of this encounter Visit Diagnoses Not on filedocumented in this encounter Additional Health Concerns Assessment Noted Time PHQ-9 Depression Total Score: 4 01/30/2019 12:13 PM CD T documented as of this encounter Care Teams Explosive Operator Supervisor Relationship Specialty Start Date End Date Elsewhere, Pcp PCP - General 09/17/19 documented as of this encounter
--- OUTSIDE RECORDS SUMMARY | 2022-05-25 13:08 | XMS_ITS | Encounter Summary ---
:1960 Author Organization [facility] Address [address] [place] [address] Care Team Providers Name Role Phone Elsewhere, Pcp Primary Care Provider Unavailable Reason for Visit Reason Comments Rx Prior Authorization Encounter Details Date Type Department Care Team Description 01/25/2021 Clinical Communication Division of Zaire Candelario, Rx Pr ior Nephrology and CHRISTOPHER, C.N.P. Authorization Hypertension, [address] [facility], in [facility] [address] [facility] [address] [place], [place] [phone] (Work) [phone] Social History Tobacco Use Types Packs/Day Years [...] 12/23/2021 relatives? How often do you attend mormonism or yarsanism 1 to 4 times per year 12/23/2021 services? Do you belong to any clubs or organizations such No 12/23/2021 as mormonism groups, unions, fraternal or athletic groups, or [...] this encounter Miscellaneous Notes Telephone Encounter - Moni Hurd - 01/25/2021 7:31 AM CDT Faxed Prior Authorization Request for Sevelamer Carbonate 800 MG to [facility] [phone]. Any questionsplease contact Prior Auth Team at [phone] [facility]. documented in this encounter Plan of Treatment Upcoming Encounters Date Type Specialty Care Team Description 06/01/2022 Telemedicine Pharmacy An Nicholas APRN, C.N.P., D.N.P., M.S.N. [address] [place] [address] 55 [phone] (Nicolas wen) 07/31/2022 Lab Laboratory Medicine Tony Rubalcava M. B., Ch.BDavi, M.D. [address] [place] [address] 55 [phone] (Nicolas wen) 07/31/2022 Lab Laboratory Medicine Tony Rubalcava M. B., Sydnie, Mukund [address] [place] [address] 55 [phone] (Wo rk) 07/31/2022 Office Visit Transplant Tony Rubalcava M.B., Sydnie, Mukund [address] [place] [address] 55 [phone] (Wo rk) 07/31/2022 Appointment Radiology Tony Rubalcava M.B., Sydnie, Mukund [address] [place] [address] 55 [phone] (Wo rk) 08/01/2022 Office Visit Transplant Tony Rubalcava M.B., Sydnie, [place]und [address] [place] [address] [phone] (Wo rk) 08/01/2022 Clinical Support Transplant Tony Rubalcava M.B., Syd[place], [place]und [address] [place] [address] [phone] (Wo rk) documented as of this encounter Visit Diagnoses Not on filedocumented in this encounter Additional Health Concerns Assessment Noted Time PHQ-9 Depression Total Score: 4 01/30/2019 12:13 PM CD T documented as of this encounter Care Teams Modular Set Crew Member Relationship Specialty Start Date End Date Elsewhere, Pcp PCP - General 09/17/19 documented as of this encounter
--- OUTSIDE RECORDS SUMMARY | 2022-05-25 13:08 | XMS_ITS | Encounter Summary ---
:1960 Author Organization [facility] Address [address] [place] [address] Care Team Providers Name Role Phone Elsewhere, Pcp Primary Care Provider Unavailable Reason for Visit Outpatient (Routine) - Closed Specialty Diagnoses / Procedures Referred By Contact Refer red To Contact Radiology Lakshmi Lynn APR N, C.N.P. [facility] [address] [place] [phone] Referral ID Status Reason Start Date Expiration Date Visits Requ ested Visits Authorized [id number] Closed 12/23/2020 12/23/2021 1 1 Encounter Details Date Type Department Care Team Description 12/24/2020 Office Visit Department of Lakshmi Lynn Complication Dialysis Fistula Subsequent (Primary Dx); Radiology, Earnest Yap APRN, C.N.P. [facility] Arteriovenous Fistula Initial (HCC); [facility], in [address] [place] [address] Chronic Failure Renal End Stage Renal Di sease Dialysis Dependent (HCC) [place], [place] [address] [place] [id number] [place], [place] [phone] (Work) [phone] Social History Tobacco Use Types Packs/Day Years [...] How often do you attend anabaptism or pentecostal 1 to 4 times per [...] Sign Reading Time Taken Comments Blood Pressure 111/81 12/24/2020 10:24 AM CDT Pulse 68 12/24/2020 10:24 AM CDT Temperature - - Respiratory Rate - - Oxygen Saturation 99% 12/24/2020 10:24 AM CDT room a ir Inhaled Oxygen Concentration - - Weight - - Height - - Body Mass Index - - documented in this encounter Progress Notes Lakshmi Lynn, CHRISTOPHER, C.N.P. - 12/24/2020 10:00 AM CDT SUBJECTIVE CHIEF COMPLAINT/REASON FOR VISIT Right upper extremity AV graft toggle and suture removal HISTORY OF PRESENT ILLNESS Shabnam Wray is a 60 y.o. female who presents with significant history end-stage renal disease, hemodialysis dependent with the right upper extremity thrombosed AV graft was post thrombectomy andballoon angioplasty done yesterday in [facility] per Dr. Mcconnell. Completion of the procedure, toggle in suture were applied to the two puncture sites to obtain hemostasis. Removal of toggle and suture to both puncture sites prior to discharge proved to be unsuccessful due to ongoing bleeding. Patient discharge with toggle in suture still in place and secured with dressing. Patient seen today in follow-up for suture removal. Has an existing left tunneled dialysis catheter in place. Patient underwent routine dialysis or earlier this morning. The following portions of the patient's history were reviewed and updated as appropriate: allergies,current medications, family history, medical history, social history, surgical history and problem list. REVIEW OF SYSTEMS Pertinent items are noted in HPI. OBJECTIVE Vitals: 12/24/20 1024 BP: 111/81 Pulse: 68 SpO2: 99% PHYSICAL EXAMINATION General Appearance: alert, no distress, cooperative. Extremity: Right Upper extremity AV graft. Toggle and sutures removed due to puncture site status post thrombectomy and angioplasty done yesterday, 12/23/2020. Hemostasis maintained. DIAGNOSTICS Lab Results Component Value Date/Time HGB 12.5 01/22/2020 02:53 PM HCT 39.0 01/22/2020 02:53 PM HCT 31.0 (L) 06/02/2014 08:31 PM PLT 165 01/22/2020 02:53 PM LEUKOCYTES Negative 03/30/2016 10:29 PM INR 1.4 01/20/2020 02:52 PM INR 1.5 09/15/2019 01:56 PM APTT 27 09/15/2019 05:17 PM APTT 60 (H) 05/31/2019 05:45 AM ASSESSMENT / PLAN #1 Complication Dialysis Fistula Subsequent -Toggle and sutures removed without difficulty or complications. Cholestasis maintained. #2 Thombosis Arteriovenous Fistula Initial (HCC) - #3 Chronic Failure Renal End Stage Renal Disease Dialysis Dependent (HCC) -tunneled left internal jugular dialysis catheter in place -right upper extremity AV Graft in place. Toggle and sutures removed hemostasis maintained. Plan: Toggle and sutures removed from RUE AV graft with hemostasis obtained. OK to be used for dialysis todetermine if patency is maintained. Dressings the removed in 48 hours. I personally spent over half of total 20 minutes face to face with patient in counseling and discussion and/or coordination of care as described above. For any questions or concerns regarding this patient please page Vascular Interventional Radiology nurse practitioner at [phone] Sunday through Sunday 7 a.m. to 5 p.m. or Vascular Interventional Radiology on-call resident at [phone] after 5 p.m. and on weekends. Answers for HPI/ROS submitted by the patient on 10/28/2020 Fatigue: Yes No eye issues: Yes No ENT issues: Yes No heart issues: Yes No respiratory issues: Yes No GI issues: Yes Pain or stiffness in the joints: Yes No skin issues: Yes No neurologic issues: Yes No mental health issues: Yes Bruises/bleeds easily: Yes No urinary/reproductive issues: Yes documented in this encounter Plan of Treatment Upcoming Encounters Date Type Specialty Care Team Description 06/01/2022 Telemedicine Pharmacy An Nicholas APRN, C.N.P., D.N.P., M.S.N. [address] [place] [phone] (Nicolas wen) 07/31/2022 Lab Laboratory Medicine Tony Rubalcava M. B., ChBurke, M.D. [address] [place] [phone] (Nicolas wen) 07/31/2022 Lab Laboratory Medicine Tony Rubalcava M. B., ChDaviBDavi, M.D. [address] [place] [address] [phone] (Nicolas wen) 07/31/2022 Office Visit Transplant Tony Rubalcava M.B., ChBurke, MDaviD. [address] [place] [address] [phone] (Nicolas wen) 07/31/2022 Appointment Radiology Tony Rubalcava M.B., Mukund Otoole [address] [place] [address] [phone] (Wo rk) 08/01/2022 Office Visit Transplant Tony Rubalcava M.B., Mukund Otoole [address] [place] [address] [phone] (Wo rk) 08/01/2022 Clinical Support Transplant Tony Rubalcava M.B., Mukund Otoole [address] [place] [address] [phone] (Wo rk) documented as of this encounter Visit Diagnoses Diagnosis Complication Dialysis Fistula Subsequent - Primary Thombosis Arteriovenous Fistula Initial (HCC) Chronic Failure Renal End Stage Renal Di sease Dialysis Dependent (HCC) documented in this encounter Additional Health Concerns Assessment Noted Time PHQ-9 Depression Total Score: 4 01/30/2019 12:13 PM CD T documented as of this encounter Care Teams Well Logging Captain Relationship Specialty Start Date End Date Elsewhere, Pcp PCP - General 09/17/19 documented as of this encounter
--- OUTSIDE RECORDS SUMMARY | 2022-05-25 13:08 | XMS_ITS | Encounter Summary ---
:1960 Author Organization [facility] Address 200 [place] [address] Care Team Providers Name Role Phone Elsewhere, Pcp Primary Care Provider Unavailable Encounter Details Date Type Department Care Team Description 01/19/2021 Orders Only Ata Dick Guilherme, Hosea Bautista [facility] (HCC) Transplantation and [address] [place] [address] S Clinical [facility] in [place], [place] [phone] [place] [address] [place] [address] (Work) [phone] Social History Tobacco Use Types Packs/Day Years [...] How often do you attend yazidi or lutheran 1 to 4 times per [...] Nicholas APRN, C.N.P., D.N.P., M.S.N. [address] [place] [phone] (Nicolas wen) 07/31/2022 Lab Laboratory Medicine Tony Rubalcava M. B., ChDaviBDavi, M.D. [address] [place] [address] [phone] (Nicolas wen) 07/31/2022 Lab Laboratory Medicine Tony Rubalcava M. B., Ch.BDavi, M.D. [address] [place] [address] [phone] (Nicolas wen) 07/31/2022 Office Visit Transplant Tony Rubalcava M.B., ChDaviBDavi, M.D. [address] [place] [address] [phone] (Nicolas wen) 07/31/2022 Appointment Radiology Tony Rubalcava M.B., Mukund Otoole [address] [place], [place] [phone] (Nicolas wen) 08/01/2022 Office Visit Transplant Tony Rubalcava M.B., Mukund Otoole [address] [place], [place] 55 [phone] (Nicolas wen) 08/01/2022 Clinical Support Transplant Tony Rubalcava M.B., Mukund Otoole [address] [place], [place] 55 [phone] (Nicolas wen) documented as of this encounter Results Tacrolimus, B (02/28/2021 5:30 AM CDT) athologist Signature Tacrolimus, B 10.9 5.0-15.0 03/03/2021 [facility] (Trough) 4:23 PM CDT ng/mL Comment: ----ADDITIONAL INFORMATION---- Target steady-state trough concentration s vary depending on the type of transplant, concomitant immunosuppressio n, clinical/institutional protocols, and time post-transplant. Results should be interpreted in conjunction with this clinical information and any physic al signs/symptoms of rejection/toxicity. Testing performed by Liquid Chromatograp hy-Tandem Mass Spectrometry (LC-MS/MS). This test was developed and its performa nce characteristics determined by [facility] in a manner consistent with CLIA requirements. This test has not been cleared or approved by the [place] d and Drug Administration. Specimen Anatomical Collection Method Collection Time Receive d Time (Source) Location / / Volume Laterality Blood (Blood, 02/28/2021 5:30 AM 03/03/20 1:15 Venous) CDT PM CDT Twin Vanegas M.D. LAB BLOOD NON ADD-ON Performing Organization Address City/State/ZIP Code Phon e Number [facility] [address] [place], [place] [address] [facility] [place] [address] Laboratory Medicine and Pathology [address] [place] documented in this encounter Visit Diagnoses Diagnosis Transplant Renal (HCC) documented in this encounter Additional Health Concerns Assessment Noted Time PHQ-9 Depression Total Score: 4 01/30/2019 12:13 PM CD T documented as of this encounter Care Teams Ribbon Weaver Relationship Specialty Start Date End Date Elsewhere, Pcp PCP - General 09/17/19 documented as of this encounter
--- OUTSIDE RECORDS SUMMARY | 2022-05-25 13:08 | XMS_ITS | Encounter Summary ---
:1960 Author Organization [facility] Address [address] [place] [address] Care Team Providers Name Role Phone Elsewhere, Pcp Primary Care Provider Unavailable Encounter Details Date Type Department Care Team Description 01/25/2021 Orders Only [facility] er Elsewhere, Pcp [address] [facility] [address] [place] [phone] Social History Tobacco Use Types Packs/Day Years [...] How often do you attend hoahaoism or christian 1 to 4 times per year 12/23/2021 [...] An Nicholas APRN C.N.P., D.N.P., M.S.N. [address] [place] [phone] (Nicolas wen) 07/31/2022 Lab Laboratory Medicine Tony Rubalcava M. B., ChBurke, MElvia. [address] [place] [address] [phone] (Nicolas wen) 07/31/2022 Lab Laboratory Medicine Tony Rubalcava M. B., ChBurke, MElvia. [address] [place] [address] [phone] (Nicolas wen) 07/31/2022 Office Visit Transplant Tony Rubalcava M.B., ChDaviBaDvi, MElvia. [address] [place] [address] [phone] (Nicolas wen) 07/31/2022 Appointment Radiology Tony Rubalcava M.B., ChDaviBDavi, MDaviD. [address] [place] [address] [phone] (Nicolas wen) 08/01/2022 Office Visit Transplant Tony Rubalcava M.B., Mukund Otoole [address] [place], [place] 55 [phone] (Wo rk) 08/01/2022 Clinical Support Transplant Tony Rubalcava M.B., Mukund Otoole [address] [place], [place] 55 [phone] (Wo behzad) documented as of this encounter Visit Diagnoses Not on filedocumented in this encounter Additional Health Concerns Assessment Noted Time PHQ-9 Depression Total Score: 4 01/30/2019 12:13 PM CD T documented as of this encounter Care Teams Bar Assistant Relationship Specialty Start Date End Date Elsewhere, Pcp PCP - General 09/17/19 documented as of this encounter
--- OUTSIDE RECORDS SUMMARY | 2022-05-25 13:08 | XMS_ITS | Encounter Summary ---
:1960 Author Organization [facility] Address [address] [place] [address] Care Team Providers Name Role Phone Elsewhere, Pcp Primary Care Provider Unavailable Encounter Details Date Type Department Care Team Description 02/02/2021 Orders Only Division of Nephrology and Zaire Candelario A PRN, Hypertension, [facility], in [place], [facility] [address] [place], [place] [address] [place] [phone] [place] [address] [phone] Social History Tobacco Use Types Packs/Day Years [...] 12/23/2021 relatives? How often do you attend denominational or mandaen 1 to 4 times per year 12/23/2021 services? Do you belong to any clubs or organizations such No 12/23/2021 as denominational groups, unions, fraternal or athletic groups, or [...] An Nicholas APRN, C.N.P., D.N.P., M.S.N. [address] [place] [phone] (Nicolas wen) 07/31/2022 Lab Laboratory Medicine Tony Rubalcava M. B., ChDaviBDavi, M.D. [address] [place] [address] [phone] (Nicolas wen) 07/31/2022 Lab Laboratory Medicine Tony Rubalcava M. B., Ch.BDavi, M.D. [address] [place] [address] [phone] (Nicolas wen) 07/31/2022 Office Visit Transplant Tony Rubalcava M.B., ChDaviBDavi, M.D. [address] [place] [address] [phone] (Nicolas wen) 07/31/2022 Appointment Radiology Tony Rubalcava M.B., Mukund Otoole [address] [place] [address] [phone] (Wo rk) 08/01/2022 Office Visit Transplant Tony Rubalcava M.B., Mukund Otoole [address] [place] [address] [phone] (Wo rk) 08/01/2022 Clinical Support Transplant Tony Rubalcava M.B., Mukund Otoole [address] [place] [address] [phone] (Wo rk) documented as of this encounter Visit Diagnoses Not on filedocumented in this encounter Additional Health Concerns Assessment Noted Time PHQ-9 Depression Total Score: 4 01/30/2019 12:13 PM CD T documented as of this encounter Care Teams Night Shift Manager Relationship Specialty Start Date End Date Elsewhere, Pcp PCP - General 09/17/19 documented as of this encounter
--- OUTSIDE RECORDS SUMMARY | 2022-05-25 13:08 | XMS_ITS | Encounter Summary ---
:[address] 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 [facility] Procedures IR Dialysis Fistulagram Right D.O. [address] [place], [place] [address] Referral ID Status Reason Start Date Expiration Date Visits Requ ested Visits Authorized [id number] Closed 01/17/2021 01/17/2022 1 1 Encounter Details Date Type Department Care Team Description 01/18/2021 Hospital Encounter Department of Josr Martínez Jr., D.ODavi [address] [place] [address] Chronic Failure Renal End Stage Renal Di sease Dialysis Dependent (HCC); Radiology in Jatin Mcconnell M.D. [address] [place] [address] Thombosis Arteriovenous Fistula Initial (HCC); Sabas Hernandez Jamie D, M.D., Ph.D. [address] [place] [address] Complication Dialysis Fistula Subsequent ; [place] [facility] [address] [place] [id number] Social History Tobacco Use Types Packs/Day Years [...] Sign Reading Time Taken Comments Blood Pressure 164/94 01/18/2021 5:21 PM CDT Pulse 72 01/18/2021 5:00 PM CDT Temperature 36.4 ??C (97.5 ??F) 01/18/2021 5:00 PM CDT Respiratory Rate 22 01/18/2021 5:21 PM CDT Oxygen Saturation 94% 01/18/2021 5:00 PM CDT Inhaled Oxygen Concentration - - Weight - - Height - - Body Mass Index - - documented in this encounter Discharge Instructions AttachmentsThe following attachments cannot be sent through Care Everywhere. Fistulogram (Croatian)documented in this encounter Medications at Time of Discharge Medication Sig Dispensed Refills Start Date End Date hydrocortisone Apply 1 application 0 09/18/2017 (for_HYTONE) 2.5 % topically daily as cream needed (Eczema). amLODIPine (NORVASC) Take 1 tablet (5 mg 90 tablet 3 202007/08/2021 5 mg tablet total) by mouth every evening. Bystolic 10 mg TAKE 1 TABLET(10 MG) 90 tablet 3 08/30/2020 04/07/2022 tabletIndications: BY MOUTH DAILY Transplant Renal (HCC) calcium carbonate Chew 2 tablets 2 (two) 0 04/07/2022 (TUMS) 500 mg (200 mg times a day with calcium) chewable meals. Lunch and tablet dinner. mycophenolate TAKE 1 CAPSULE(250 MG) 180 capsule 3 0 03/01/2021 (CELLCEPT) 250 mg BY MOUTH TWICE DAILY. capsule DO NOT BREAK, CUT, OR OPEN CAPSULES predniSONE Take 1 tablet (5 mg 90 tablet 3 02/16/202002/28 (DELTASONE) 5 mg total) by mouth daily. tablet rosuvastatin TAKE 1 TABLET BY MOUTH 90 tablet 3 01/13/2021 12/30/2021 (CRESTOR) 5 mg tablet DAILY tacrolimus (PROGRAF) Take 3 capsules (3 mg 540 capsule 3 04/202003/07/2021 1 mg capsule total) by mouth 2 (two) times a day. warfarin (Coumadin) 2 Take 3 tablets (6 mg 270 tablet 3 12/202002/02/2021 mg tablet total) by mouth daily. Take 3 tablets each day for 3 days and return to Anticoagulation Clinic for INR testing. acetaminophen Take 2 tablets (1,000 0 05/12/2019 04/07/2022 (TYLENOL) 500 mg mg total) by mouth tablet every 6 (six) hours as needed for pain. cefdinir (OMNICEF) Take 1 capsule (300 mg 3 capsule 0 12/1309/22/2021 300 mg total) by mouth as capsuleIndications: directed. Take 1 Infection Urinary capsule every other Tract day for 3 days. Do not take on the day of procedure. gabapentin Take 3 capsules (300 450 capsule 3 12/08/2019 (NEURONTIN) 100 mg mg total) by mouth as capsule directed. 3 in am 2 in PM lidocaine-prilocaine APPLY TOPICALLY TO 60 g 11 020 04/07/2022 (EMLA) 2.5-2.5 % DIALYSIS ACCESS SITE cream 30 MINUTES PRIOR TO TREATMENT--GENERIC FOR EMLA multivitamin renal Take 1 tablet by mouth 30 tablet 11 06/0609/22/2021 failure (DIALYVITE) every evening. 100-1 mg tablet sevelamer (RENVELA) Take 1 tablet (800 mg 90 tablet 3 01/1807/13/2021 800 mg tablet total) by mouth daily with breakfast. Take with largest meal of the day documented as of this encounter Procedure Notes William Obregon M.D., Ph.D. - 01/18/2021 4:39 PM CDT PATIENT DISPOSITION Return to Outpatient Unit for recovery. Discharge patient when discharge criteria met. POST-PROCEDURE DIAGNOSIS Dialysis fistula PROCEDURE PERFORMED AND DESCRIPTION Right dialysis fistulogram and balloon dilation PROCEDURE DETAILS See Radiology Report SPECIMENS REMOVED None FINDINGS Right dialysis fistulogram and balloon dilation PRIMARY PROCEDURALIST Jayesh ASSISTANTS Sabas COMPLICATIONS None. DRAINS None. IMPLANTS None. ANESTHESIA Moderate Sedation. FLUIDS See MAR. ESTIMATED BLOOD LOSS <5ml CURRENT MEDICATIONS No Medication Changes FOLLOW-UP LETTER None. MAY RETURN TO WORK Not applicable PATIENT INSTRUCTIONS Call physicians's office for appointment documented in this encounter Plan of Treatment Upcoming Encounters Date Type Specialty Care Team Description 06/01/2022 Telemedicine Pharmacy An Nicholas APRN, C.N.P., D.N.P., M.S.N. [address] [place] [phone] ( rk) 07/31/2022 Lab Laboratory Medicine Tony Rubalcava M. B., [place], [place] [address] [place] [phone] ( rk) 07/31/2022 Lab Laboratory Medicine Tony Rubalcava M. B., [place], [place] [address] [place] [phone] (Wo rk) 07/31/2022 Office Visit Transplant Tony Rubalcava M.B., [place], [place] [address] [place] [phone] (Wo rk) 07/31/2022 Appointment Radiology Tony Rubalcava M.B., [place], MDebra [address] [place] [phone] ( rk) 08/01/2022 Office Visit Transplant Tony Rubalcava M.B., [place], MDebra [address] [place] [phone] (Wo rk) 08/01/2022 Clinical Support Transplant Tony Rubalcava M.B., [place], Shashi. [address] [place], [place] [phone] (Wo rk) documented as of this encounter Procedures Procedure Name Priority Date/Time Associated Comments Diagnosis IR DIALYSIS RAD - Routine 01/18/2021 4:33 Chronic Failure Results for FISTULAGRAM RIGHT (most inpatients PM CDT Renal End Stage thi s procedure and all Renal Disease are in the outpatients) Dialysis Dependent results (HCC) section. Thombosis Arteriovenous Fistula Initial (HCC) Complication Dialysis Fistula Subsequent Anticoagulant Therapy ADULT OXYGEN Routine 01/18/2021 2:12 THERAPY PM CDT documented in this encounter Results IR Dialysis Fistulagram Right (01/18/2021 4:33 PM CDT) Anatomical Region Laterality Modality Body, Vascular Interventional RST LOS, Vascular Right X-Ray Angiography Interventional ARZ LOS, Vascular Interventional FLA LOS Specimen (Source) Anatomical Collection Method Collection Time Re ceived Time Location / / Volume Laterality 01/18/2021 5:35 PM CDT Impressions 01/18/2021 5:48 PM CDT Successful declot and 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 EP Narrative 01/18/2021 5:48 PM CDT EXAM: IR DIALYSIS FISTULAGRAM RIGHT CLINICAL HISTORY: 60-year-old female wit h recurrent thrombosis is a right upper extremity graft. TECHNIQUE: The right upper extremity was prepped and draped in routine sterile fashion. 1 percent lidocaine was used as local anesthetic. Under ultrasound guidance, the graft was accessed in ante grade fashion at the level of the distal humerus. 0.018 inch Nitrex wire was adva nced and the needle exchanged for the micropuncture sheath. Fistulogram showed recurrent thrombosis throughout the graft including the venous anastomotic s tent. A 6 Israeli sheath was placed. Patient was systemically heparinized. Th e entire graft and cephalic arch were dilated using a 7 mm balloon. Next, a se cond access was obtained in retrograde fashion at the level of the midhumerus. 0.018 inch Nitrex wire was advanced and the needle exchanged for the micropunctu re sheath. Glidewire was advanced gently across the arterial anastomosis. A 6 [facility] vascular sheath was placed. A Kumpe catheter was then advanced across the ar terial anastomosis. Fistulogram showed recurrent thrombosis at the perianastomo tic segment of the graft. The arterial anastomosis and perianastomotic segment were gently dilated using 5 mm balloon. Follow-up fistulogram demonstrated excel lent angiographic results with brisk flow throughout the graft into the centr al veins and right atrium. The sheaths were removed and hemostasis at both acce ss sites achieved with temporary pursestring sutures. Excellent palpable thrill was felt following intervention. No immediate complication. PREPROCEDURE: Patient seen, evaluated, h istory reviewed, and approved for sedation. Airway, heart, and lung exam s atisfactory for sedation. Discussed risks, benefits, alternatives for proced ure, and/or sedation. The roles and responsibilities of care team members, r esidents, and fellows were discussed. Patient understands information and ques tions answered. Informed consent obtained from the patient. Immediately p rior to starting the procedure, in the presence of the assisting personnel, a p rocedural pause was conducted to verify correct patient identity and verificatio n of procedure to be performed, and as applicable, correct side and site, corre ct patient position, availability of implants, special equipment, or special requirements, and all image and specimen identification data. INTRAPROCEDURE: Moderate sedation was ad ministered by sedation nurse under my supervision. The patient was continuousl y monitored with real time oxygen saturation, heart rate, ECG rhythm strip and blood pressure throughout administration of the sedation and perfo rmance of the procedure. The total intra-procedural sedation time was: 119 minutes. Procedure Note Jatin Mcconnell M.D. - 01/18/2021Fo rmatting of this note might be different from the original. EXAM: IR DIALYSIS FISTULAGRAM RIGHT CLINICAL HISTORY: 60-year-old female wit h recurrent thrombosis is a right upper extremity graft. TECHNIQUE: The right upper extremity was prepped and draped in routine sterile fashion. 1 percent lidocaine was used as local anesthetic. Under ultrasound guidance, the graft was accessed in ante grade fashion at the level of the distal humerus. 0.018 inch Nitrex wire was adva nced and the needle exchanged for the micropuncture sheath. Fistulogram showed recurrent thrombosis throughout the graft including the venous anastomotic s tent. A 6 Israeli sheath was placed. Patient was systemically heparinized. Th e entire graft and cephalic arch were dilated using a 7 mm balloon. Next, a se cond access was obtained in retrograde fashion at the level of the midhumerus. 0.018 inch Nitrex wire was advanced and the needle exchanged for the micropunctu re sheath. Glidewire was advanced gently across the arterial anastomosis. A 6 [facility] vascular sheath was placed. A Kumpe catheter was then advanced across the ar terial anastomosis. Fistulogram showed recurrent thrombosis at the perianastomo tic segment of the graft. The arterial anastomosis and perianastomotic segment were gently dilated using 5 mm balloon. Follow-up fistulogram demonstrated excel lent angiographic results with brisk flow throughout the graft into the centr al veins and right atrium. The sheaths were removed and hemostasis at both acce ss sites achieved with temporary pursestring sutures. Excellent palpable thrill was felt following intervention. No immediate complication. PREPROCEDURE: Patient seen, evaluated, h istory reviewed, and approved for sedation. Airway, heart, and lung exam s atisfactory for sedation. Discussed risks, benefits, alternatives for proced ure, and/or sedation. The roles and responsibilities of care team members, r esidents, and fellows were discussed. Patient understands information and ques tions answered. Informed consent obtained from the patient. Immediately p rior to starting the procedure, in the presence of the assisting personnel, a p rocedural pause was conducted to verify correct patient identity and verificatio n of procedure to be performed, and as applicable, correct side and site, corre ct patient position, availability of implants, special equipment, or special requirements, and all image and specimen identification data. INTRAPROCEDURE: Moderate sedation was ad ministered by sedation nurse under my supervision. The patient was continuousl y monitored with real time oxygen saturation, heart rate, ECG rhythm strip and blood pressure throughout administration of the sedation and perfo rmance of the procedure. The total intra-procedural sedation time was: 119 minutes. IMPRESSION: Successful declot and angioplasty of rec urrent thrombosis of right upper extremity brachial artery to axill alfie vein dialysis graft. EP Brody Rasheed Jr. IR PROCEDURES documented in this encounter Visit Diagnoses Diagnosis Chronic Failure Renal End Stage Renal Di sease Dialysis Dependent (HCC) Thombosis Arteriovenous Fistula Initial (HCC) Complication Dialysis Fistula Subsequent Anticoagulant Therapy documented in this encounter Administered Medications Inactive Administered Medications - up to 3 most recent administrations Medication Order MAR Action Action Date Dose Rate Site alteplase 1 mg/mL injection (CATHFLO Given 01/18/2021 4:07 PM CD T 2 mg ACTIVASE) Code/trauma/sedation medication, Starting on Sun01/18/21 at 1607 fentaNYL injection 25 mcg (SUBLIMAZE) Given 01/18/2021 4:28 PM CDT 25 mcg 25 mcg, intravenous, Every 2 min PRN, sedation, or pain before and during sedation procedure, Starting on Sun01/18/21 at 1412, Intraprocedure (RAD), Administer over 1 minute immediately prior to the procedure. May repeat every 2 minutes to a maximum of 200 mcg, until pain score of 3 or less, or until the patient meets the pain comfort goal. Do not give if respiratory rate is less than 8 breaths/minute Given 01/18/2021 4:17 PM CDT 25 mcg Given 01/18/2021 3:55 PM CDT 25 mcg flumazeniL injection 0.2 mg (ROMAZICON) 0.2 mg, intravenous, Once as needed, rev ersal, Starting on Sun01/18/21 at 1412, For 1 dose, Intraprocedure (RAD), Administer once if patient has a RASS score of -4, -5 and has a respiratory rate less than 8 breaths/minute. heparin (porcine) 1,000 unit/mL injectio n Given 01/18/2021 3:39 PM 5,000 Units Code/trauma/sedation medication, Starting CDT on Sun01/18/21 at 1539 iohexoL 300 mg iodine/mL solution (OMNIP AQUE) Given 01/18/2021 4:31 PM CDT 75 mL Code/trauma/sedation medication, Starting on Sun01/18/21 at 1631 labetalol injection (NORMODYNE,TRANDATE) Given 01/18/2021 4:34 PM 10 mg Code/trauma/sedation medication, Starting on Sun CDT 01/18/21 at 1634 lactated ringers 20 mL/hr, intravenous, Once as needed, t o keep vein open, Starting on Sun01/18/21 at 1412, For 1 dose, Intraprocedure (RAD) lidocaine-sodium bicarbonate (buffered) Given 01/18/2021 4:32 PM CDT 5 mL 0.9%-8.4% injection infiltration, Code/trauma/sedation medication, Starting on Sun01/18/21 at 1632 midazolam (PF) injection 0.25 mg (VERSED ) 0.25 mg, intravenous, Every 2 min PRN, s edation, RASS -2, Starting on Sun01/18/21 at 1412, Intraprocedure (RAD), May repeat e very 2 minutes to a maximum of 5 mg. Do not give if respiratory rate is less than 8 breaths/minute . midazolam (PF) injection 0.5 mg (VERSED) 0.5 mg, intravenous, Once as needed, sed ation, Starting on Sun01/18/21 at 1412, For 1 dose, Intraprocedure (RAD) midazolam (PF) injection 0.5 mg (VERSED) Given 01/18/2021 4:27 PM CDT 0.5 mg 0.5 mg, intravenous, Every 2 min PRN, sedation, RASS -1, Starting on Sun01/18/21 at 1412, Intraprocedure (RAD), May repeat every 2 minutes for a maximum of 5 mg. Do not give if respiratory rate is less than 8 breaths/minute. Given 01/18/2021 4:17 PM CDT 0.5 mg Given 01/18/2021 3:55 PM CDT 0.5 mg midazolam (PF) injection 1 mg (VERSED) 1 mg, intravenous, Every 2 min PRN, sedation, RASS 0, Starting on Sun01/18/21 at 1412, Intraprocedure (RAD), May repeat e very 2 minutes for a maximum of 5 mg. Do not give if respiratory rate is less than 8 breaths/mi nute. naloxone injection 0.2 mg (NARCAN) 0.2 mg, intravenous, Once as needed, res piratory depression, Starting on Sun01/18/21 at 1412, For 1 dose, Intraprocedure (RAD ), Administer once if patient has a RASS score of -4, -5 and has a respiratory rate less than 8 breaths/minute. documented in this encounter Active and Recently Administered Medications Times are shown in CDT. PRN Medication Order 01/16/2021 01/17/2021 01/18/2021 alteplase 1 mg/mL injection (CATHFLO ACTIVASE) (COMPLETED) 1607 (Given - Provider: Jatin Mcconnell M.D.) Code/trauma/sedation medication, Starting on Sun01/18/21 at 1607 fentaNYL injection 25 mcg (SUBLIMAZE) 1448 (Given - Provider: Rubina Rivera R.N.)1528 (Given - Provider: Rubina Rivera R.N.)1538 (Given - Provider: Rubina Rivera R.N.)1542 (Given - Provider: Rubina Rivera R.N.) 25 mcg, intravenous, Every 2 min PRN, se dation, or pain before and during sedation procedure, Starting on Sun01/18/21 at 1412, Intraprocedure (RAD), Administer over 1 minute immediately prior to the proc 1548 (Given - Provider: Rubina Rivera R.N.)1555 (Given - Provider: Rubina Rivera R.N.)1617 (Given - Provider: George Norton R.N.)1628 (Given - Provider: George Norton R.N.) edure. May repeat every 2 minutes to a m aximum of 200 mcg, until pain score of 3 or less, or until the patient meets the pain comfort goal. Do not give if respiratory rate is less than 8 breaths/minute flumazeniL injection 0.2 mg (ROMAZICON) 0.2 mg, intravenous, Once as needed, rev ersal, Starting on Sun01/18/21 at 1412, For 1 dose, Intraprocedure (RAD), Administer once if patient has a RASS score of -4, -5 and has a respiratory rate less than 8 breaths/minute. heparin (porcine) 1,000 unit/mL injection (COMPLETED) 1539 (Given - Provider: Rubina Rivera R.N.) Code/trauma/sedation medication, Starting on Sun01/18/21 at 1539 iohexoL 300 mg iodine/mL solution (OMNIPAQUE) (COMPLETED) 163 (Given - Provider: Jatin Mcconnell M.D.) Code/trauma/sedation medication, Starting on Sun01/18/21 at 1631 labetalol injection (NORMODYNE,TRANDATE) (COMPLETED) 1634 (Given - Provider: George Norton R.N.) Code/trauma/sedation medication, Starting on Sun01/18/21 at 1634 lactated ringers 20 mL/hr, intravenous, Once as needed, t o keep vein open, Starting on Sun01/18/21 at 1412, For 1 dose, Intraprocedure (RAD) lidocaine-sodium bicarbonate (buffered) 0.9%-8.4% injection (COM PLETED) 163 (Given - Provider: Jatin Mcconnell M.D.) infiltration, Code/trauma/sedation medication, Starting on Sun at 1632 midazolam (PF) injection 0.25 mg (VERSED) 0.25 mg, intravenous, Every 2 min PRN, s edation, RASS -2, Starting on Sun01/18/21 at 1412, Intraprocedure (RAD), May repeat every 2 minutes to a maximum of 5 mg. Do not give if respiratory rate is less than 8 breaths/minute. midazolam (PF) injection 0.5 mg (VERSED) 0.5 mg, intravenous, Once as needed, sed ation, Starting on Sun01/18/21 at 1412, For 1 dose, Intraprocedure (RAD) midazolam (PF) injection 0.5 mg (VERSED) 1448 (Given - Provider: Rubina Rivera R.N.)1528 (Given - Provider: Rubina Rivera R.N.)1538 (Given - Provider: Rubina Rivera R.N.)1542 (Given - Provider: Rubina Rivera R.N.) 0.5 mg, intravenous, Every 2 min PRN, se dation, RASS -1, Starting on Sun01/18/21 at 1412, Intraprocedure (RAD), May repeat every 2 minutes for a maximum of 5 mg. Do not give if respiratory rate is less than 8 breaths/minute. 1549 (Given - Provider: Rubina Rivera R.N.)1555 (Given - Provider: Rubina Rivera R.N.)1617 (Given - Provider: George Norton R.N.)1627 (Given - Provider: George Norton R.N.) midazolam (PF) injection 1 mg (VERSED) 1 mg, intravenous, Every 2 min PRN, dustin tion, RASS 0, Starting on Sun01/18/21 at 1412, Intraprocedure (RAD), May repeat every 2 minutes for a maximum of 5 mg. Do not give if respiratory rate is less than 8 breaths/minute. naloxone injection 0.2 mg (NARCAN) 0.2 mg, intravenous, Once as needed, res piratory depression, Starting on Sun01/18/21 at 1412, For 1 dose, Intraprocedure (RAD), Administer once if patient has a RASS score of -4, -5 and has a respiratory rate less than 8 breaths/minute. documented in this encounter Additional Health Concerns Assessment Noted Time PHQ-9 Depression Total Score: 4 01/30/2019 12:13 PM CD T documented as of this encounter Care Teams Folder Seamer Automatic Relationship Specialty Start Date End Date Elsewhere, Pcp PCP - General 09/17/19 documented as of this encounter
--- OUTSIDE RECORDS SUMMARY | 2022-05-25 13:08 | XMS_ITS | Encounter Summary ---
:[address] [facility] Address [address] [place] [address] Care Team Providers Name Role Phone Elsewhere, Pcp Primary Care Provider Unavailable Reason for Visit Reason Comments Med Refill Encounter Details Date Type Department Care Team Description 01/18/2021 Refill Division of Nephrology and Tanya, Neymar Yap Jr., Med Refill Hypertension in [facility] [address] [facility] [address] [place] [address] [place] [address] [phone] Social History Tobacco Use Types Packs/Day Years [...] 12/23/2021 relatives? How often do you attend voodoo or nondenominational 1 to 4 times per year 12/23/2021 services? Do you belong to any clubs or organizations such No 12/23/2021 as voodoo groups, unions, fraternal or athletic groups, or [...] Notes Telephone Encounter - Moni Hurd - 01/18/2021 8:05 AM CDT Med refill request for Renvela 800 mg tab. [place] pt. Please review the prescription request and approve or deny as appropriate. documented in this encounter Plan of Treatment Upcoming Encounters Date Type Specialty Care Team Description 06/01/2022 Telemedicine Pharmacy An Nicholas APRN, C.N.P., D.N.P., M.S.N. [address] [place] [phone] (Wo rk) 07/31/2022 Lab Laboratory Medicine Tony Rubalcava M. B., Ch.B., MElvia. [address] [place] [phone] (Wo rk) 07/31/2022 Lab Laboratory Medicine Tony Rubalcava M. B., Ch.B., MElvia. [address] [place] [phone] (Wo rk) 07/31/2022 Office Visit Transplant Tony Rubalcava M.B., [place], [place] [address] [place] [phone] (Wo rk) 07/31/2022 Appointment Radiology Tony Rubalcava M.B., [place], [place] [address] [place] [phone] (Wo rk) 08/01/2022 Office Visit Transplant Tony Rubalcava M.B., [place], [place] [address] [place] [phone] (Wo rk) 08/01/2022 Clinical Support Transplant Tony Rubalcava M.B., [place], MDebra [address] [place] [phone] (Wo rk) documented as of this encounter Visit Diagnoses Not on filedocumented in this encounter Additional Health Concerns Assessment Noted Time PHQ-9 Depression Total Score: 4 01/30/2019 12:13 PM CD T documented as of this encounter Care Teams Ceramic Artist Relationship Specialty Start Date End Date Elsewhere, Pcp PCP - General 09/17/19 documented as of this encounter
--- OUTSIDE RECORDS SUMMARY | 2022-05-25 13:08 | XMS_ITS | Encounter Summary ---
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 200 [place], [place] [phone] Referral ID Status Reason Start Date Expiration Date Visits Requ ested Visits Authorized [id number] Closed 01/17/2021 01/17/2022 1 1 Encounter Details Date Type Department Care Team Description 01/17/2021 Orders Only Division of Nephrology Steve Martínez hronic Failure Renal End Stage Renal Disease Dialysis Dependent (HCC) (Primary Dx); and Hypertension in Fracisco Garcia D.O. Thombosis Arteriovenous Fistula Initial (HCC); [place], [place] [address] [facility] Complication Dialysis Fistula Subsequent ; [address] [place], [place] [address] [phone] Social History Tobacco Use Types Packs/Day Years [...] How often do you attend mandaen or scientologist 1 to 4 times per year 12/23/2021 [...] An Nicholas APRN, C.N.P., D.N.P., M.S.N. 200 [place], [place] 55 [phone] (Wo rk) 07/31/2022 Lab Laboratory Medicine Tony Rubalcava M. B., Sydnie, Mukund [address] [place] [address] [phone] (Wo rk) 07/31/2022 Lab Laboratory Medicine Tony Rubalcava M. B., Sydnie, Mukund [address] [place] [address] [phone] (Nicolas rk) 07/31/2022 Office Visit Transplant Tony Rubalcava M.B., Sydnie, Mukund [address] [place] [address] [phone] (Nicolas wen) 07/31/2022 Appointment Radiology Tony Rubalcava M.B., Sydnie, Mukund [address] [place] [address] 55 [phone] (Nicolas wen) 08/01/2022 Office Visit Transplant Tony Rubalcava M.B., Sydnie, Mukund [address] [place] [address] 55 [phone] (Nicolas wen) 08/01/2022 Clinical Support Transplant Tony Rubalcava M.B., Sydnie, Mukund [address] [place] [address] [phone] (Nicolas wen) documented as of this encounter Results IR Dialysis Fistulagram Right [...] the venous anastomotic s tent. A 6 Bahraini sheath was placed. Patient was systemically heparinized. Th e entire graft and cephalic arch were dilated using a 7 mm balloon. Next, a se cond access was obtained in retrograde fashion at the level of the midhumerus. 0.018 inch Nitrex wire was advanced and the needle exchanged for the micropunctu re sheath. Glidewire was advanced gently across the arterial anastomosis. A 6 [facility] vascular sheath was placed. A Kumpe catheter [...] the venous anastomotic s tent. A 6 Bahraini sheath was placed. Patient was systemically heparinized. Th e entire graft and cephalic arch were dilated using a 7 mm balloon. Next, a se cond access was obtained in retrograde fashion at the level of the midhumerus. 0.018 inch Nitrex wire was advanced and the needle exchanged for the micropunctu re sheath. Glidewire was advanced gently across the arterial anastomosis. A 6 [facility] vascular sheath was placed. A Kumpe catheter [...] to axill alfie vein dialysis graft. EP Michelle Rasheed Jr..O. IMG IR PROCEDURES Potassium (01/18/2021 12:28 PM CDT) athologist Signature Potassium, S 4.7 3.6 - 5.2 01/18/2021 DTL mmol/L 1:23 PM CDT Specimen Anatomical Collection Method Collection Time Receive d Time (Source) Location / / Volume Laterality Blood (Blood, 01/18/2021 12:28 01/18/2021 Venous) PM CDT 12:43 PM CDT Steve Martínez Jr., D.O. LAB BLOOD ADD-ON Performing Organization Address City/State/ZIP Code Phon e Number [facility] - [address] [place], [place] [address] [facility] [facility] [place] [address] [facility] 200 [facility] (ABNORMAL) Prothrombin Time (PT) (01/18/2021 12:28 PM CDT) Patholo gist Method Time Signature Prothrombin 17.2 (H) 9.4 - 12.5 01/18/2021 DTL Time, P sec 1:09 PM CDT INR 1.6 0.9 - 1.1 01/18/2021 DTL 1:09 PM CDT Comment: ----ADDITIONAL INFORMATION---- Standard intensity warfarin therapeutic range: 2.0 to 3.0 ?? High intensity warfarin therapeutic rang e: 2.5 to 3.5 Specimen Anatomical Collection Method Collection Time Receive d Time (Source) Location / / Volume Laterality Blood (Blood, 01/18/2021 12:28 01/18/2021 Venous) PM CDT 12:47 PM CDT Steve Martínez Jr., D.O. LAB BLOOD ADD-ON Performing Organization Address City/State/ZIP Code Phon e Number [facility] - [address] [place], [place] [address] [facility] [place] [address] [facility] [address] documented in this encounter Visit Diagnoses Diagnosis Chronic Failure Renal End Stage Renal Di sease Dialysis Dependent (HCC) - Primary Thombosis Arteriovenous Fistula Initial (HCC) Complication Dialysis Fistula Subsequent Anticoagulant Therapy Chronic Failure Renal End Stage Renal Di sease Dialysis Dependent (HCC) Thombosis Arteriovenous Fistula Initial (HCC) Complication Dialysis Fistula Subsequent Anticoagulant Therapy documented in this encounter Additional Health Concerns Assessment Noted Time PHQ-9 Depression Total Score: 4 01/30/2019 12:13 PM CD T documented as of this encounter Care Teams Fiberglass Autobody Repairer Relationship Specialty Start Date End Date Elsewhere, Pcp PCP - General 09/17/19 documented as of this encounter
--- OUTSIDE RECORDS SUMMARY | 2022-05-25 13:08 | XMS_ITS | Encounter Summary ---
:1960 Author Organization [facility] Address [address] [place] [address] Care Team Providers Name Role Phone Elsewhere, Pcp Primary Care Provider Unavailable Encounter Details Date Type Department Care Team Description 01/18/2021 Orders Only Division of Nephrology and Zaire Candelario A PRN, Hypertension, [facility], in [place], [facility] [address] [place], [place] [address] [place] [id number] [place] [address] [phone] Social History Tobacco Use Types Packs/Day Years [...] How often do you attend mormonism or jew 1 to 4 times per [...] Nicholas APRN, C.N.P., D.N.P., M.S.N. [address] [place] [address] 55 [phone] (Nicolas wen) 07/31/2022 Lab Laboratory Medicine Tony Rubalcava M. B., ChDaviBDavi, M.D. [address] [place] [address] 55 [phone] (Nicolas wen) 07/31/2022 Lab Laboratory Medicine Tony Rubalcava M. B., Ch.BDavi, M.D. [address] [place] [address] 55 [phone] (Nicolas wen) 07/31/2022 Office Visit Transplant Tony Rubalcava M.B., ChDaviBDavi, M.D. [address] [place] [address] 55 [phone] (Nicolas wen) 07/31/2022 Appointment Radiology Tony Rubalcava M.B., Mukund Otoole [address] [place] [address] [phone] (Wo rk) 08/01/2022 Office Visit Transplant Tony Rubalcava M.B., Mukund Otoole [address] [place] [address] [phone] (Wo rk) 08/01/2022 Clinical Support Transplant Tony Rubalcava M.B., Mukund Otoole [address] [place] [address] 55 [phone] (Wo rk) documented as of this encounter Visit Diagnoses Not on filedocumented in this encounter Additional Health Concerns Assessment Noted Time PHQ-9 Depression Total Score: 4 01/30/2019 12:13 PM CD T documented as of this encounter Care Teams Package Pick Up Relationship Specialty Start Date End Date Elsewhere, Pcp PCP - General 09/17/19 documented as of this encounter
--- OUTSIDE RECORDS SUMMARY | 2022-05-25 13:08 | XMS_ITS | Encounter Summary ---
:1960 Author Organization [facility] Address [address] [place] [address] Care Team Providers Name Role Phone Elsewhere, Pcp Primary Care Provider Unavailable Encounter Details Date Type Department Care Team Description 02/09/2021 Orders Only Division of Nephrology and Zaire Candelario A PRN, Hypertension, [facility], in [place], [facility] [address]st [place], [place] [address] [place] [phone] [place] [address] [phone] Social History Tobacco Use Types Packs/Day Years [...] 12/23/2021 relatives? How often do you attend scientologist or orthodoxy 1 to 4 times per year 12/23/2021 services? Do you belong to any clubs or organizations such No 12/23/2021 as scientologist groups, unions, fraternal or athletic groups, or [...] An Nicholas APRN, C.N.P., D.N.P., M.S.N. [address] [place] [address] 55 [phone] (Nicolas wen) 07/31/2022 Lab Laboratory Medicine Tony Rubalcava M. B., ChDaviBDavi, M.D. [address] [place] [address] 55 [phone] (Nicolas wen) 07/31/2022 Lab Laboratory Medicine Tony Rubalcava M. B., Ch.BDavi, M.D. [address] [place] [address] 55 [phone] (Nicolas wen) 07/31/2022 Office Visit Transplant Tony Rubalcava M.B., ChDaviBDavi, M.D. [address] [place] [address] 55 [phone] (Nicolas wen) 07/31/2022 Appointment Radiology Tony Rubalcava M.B., Mukund Otoole [address] [place] [address] [phone] (Wo rk) 08/01/2022 Office Visit Transplant Tony Rubalcava M.B., Mukund Otoole [address] [place] [address] [phone] (Wo rk) 08/01/2022 Clinical Support Transplant Tony Rubalcava M.B., Mukund Otoole [address] [place] [address] [phone] (Wo rk) documented as of this encounter Visit Diagnoses Not on filedocumented in this encounter Additional Health Concerns Assessment Noted Time PHQ-9 Depression Total Score: 4 01/30/2019 12:13 PM CD T documented as of this encounter Care Teams Gym Teacher Relationship Specialty Start Date End Date Elsewhere, Pcp PCP - General 09/17/19 documented as of this encounter
--- OUTSIDE RECORDS SUMMARY | 2022-05-25 13:08 | XMS_ITS | Encounter Summary ---
:1960 Author Organization [facility] Address [address] [place] [address] Care Team Providers Name Role Phone Elsewhere, Pcp Primary Care Provider Unavailable Encounter Details Date Type Department Care Team Description 01/17/2021 Documentation Division of Nephrology and Josr Martínez Hypertension in [place], ., D.O. [place] 200 [facility] 200 [place] [phone] (Wo rk) Social History Tobacco Use Types [...] 12/23/2021 relatives? How often do you attend baptism or congregational 1 to 4 times per year 12/23/2021 services? Do you belong to any clubs or organizations such No 12/23/2021 as baptism groups, unions, fraternal or athletic groups, or [...] Progress Notes Steve Martínez Jr., D.O. - 01/17/2021 7:34 AM CDT Care coordination-emergency phone call: Received phone call this morning at 5:45 a.m. regards the patient's right arteriovenous graft being clotted. This is been ongoing issue. She had her line removed last , she held her warfarin for 2 daysprior to the procedure and resume the warfarin the night the catheter was removed. She dialyzed successfully on Sunday last week, 14 of January. She is 1.5 kg above her target weight, her blood pressure is 135/75, she is having no symptoms. Our staff at the dialysis unit could not hear a bruit, nor feel a thrill, they attempted to cannulate, and received no flash back. We had 3 experts at the dialysis unit ensure that the graft is indeed clotted. I will need to make urgent arrangements for the patient to have a fistulogram and attempted declot, if unsuccessful she will need replacement of her catheter. Issues will be complicated by this being a holiday, and that the [facility] unit in [place] is closed on Tuesdays. Plan will be to contact Interventional Radiology today to see whether she could be seen on an emergent basis this afternoon or evening, more likely have her scheduled for tomorrow morning. Then she would return for usually scheduled session on Sunday, her residual renal function is sufficient to allow this safely. . I have asked for an urgent INR to be done tomorrow along with the potassium. Our last resort would be to have her come to the emergency room. Very difficult set of circumstances. 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 documented in this encounter Plan of Treatment Upcoming Encounters Date Type Specialty Care Team Description 06/01/2022 Telemedicine Pharmacy An Nicholas APRN C.N.P., D.N.P., M.S.N. [address] [place] [address] [phone] (Nicolas wen) 07/31/2022 Lab Laboratory Medicine Tony Rubalcava M. B., ChDaviBDavi, M.D. [address] [place] [address] 55 [phone] (Nicolas wen) 07/31/2022 Lab Laboratory Medicine Tony Rubalcava M. B., ChDaviBDavi, M.D. [address] [place] [address] 55 [phone] (Nicolas wen) 07/31/2022 Office Visit Transplant Tony Rubalcava M.B., ChDaviBDavi, M.D. [address] [place] [address] 55 [phone] (Nicolas wen) 07/31/2022 Appointment Radiology Tony Rubalcava M.B., ChDaviBDavi, M.D. [address] [place] [address] 55 [phone] (Nicolas wen) 08/01/2022 Office Visit Transplant Tony Rubalcava M.B., Mukund Otoole [address] [place], [place] 55 [phone] (Wo behzad) 08/01/2022 Clinical Support Transplant Tony Rubalcava M.B., Mukund Otoole [address] [place], [place] 55 [phone] (Nicolas wen) documented as of this encounter Visit Diagnoses Not on filedocumented in this encounter Additional Health Concerns Assessment Noted Time PHQ-9 Depression Total Score: 4 01/30/2019 12:13 PM CD T documented as of this encounter Care Teams Laborer Prestressed Concrete Relationship Specialty Start Date End Date Elsewhere, Pcp PCP - General 09/17/19 documented as of this encounter
--- OUTSIDE RECORDS SUMMARY | 2022-05-25 13:08 | XMS_ITS | Encounter Summary ---
:1960 Author Organization [facility] Address [address] [place] [address] Care Team Providers Name Role Phone Elsewhere, Pcp Primary Care Provider Unavailable Encounter Details Date Type Department Care Team Description 01/20/2021 Hospital Encounter Department of GuilhermeTwin lowery Tran splant Renal Laboratory Medicine M.Whitney (HCC) and Pathology, [address] [place] [address] in [facility] [address] [place] [phone] [place] [address] (Work) [place], [place] [phone] (Fax) [phone] Social History Tobacco Use Types Packs/Day Years [...] How often do you attend adventist or sabianism 1 to 4 times per [...] topically daily as cream needed (Eczema). acetaminophen Take 2 tablets (1,000 0 05/12/2019 04/07/2022 (TYLENOL) 500 mg mg total) by mouth tablet every 6 (six) hours as needed for pain. amLODIPine (NORVASC) Take 1 tablet (5 mg 90 tablet 3 202007/08/2021 5 mg tablet total) by mouth every evening. Bystolic 10 mg TAKE 1 TABLET(10 MG) 90 tablet 3 08/30/2020 04/07/2022 tabletIndications: BY MOUTH DAILY Transplant Renal (HCC) calcium carbonate Chew 2 tablets 2 (two) 0 04/07/2022 (TUMS) 500 mg (200 mg times a day with calcium) chewable meals. Lunch and tablet dinner. cefdinir (OMNICEF) Take 1 capsule (300 mg [...] failure (DIALYVITE) every evening. 100-1 mg tablet mycophenolate TAKE 1 CAPSULE(250 MG) 180 capsule 3 0 03/01/2021 (CELLCEPT) 250 mg BY MOUTH TWICE DAILY. capsule DO NOT BREAK, CUT, OR OPEN CAPSULES predniSONE Take 1 tablet (5 mg 90 tablet 3 02/16/202002/28 (DELTASONE) 5 mg total) by mouth daily. tablet rosuvastatin TAKE 1 TABLET BY MOUTH 90 tablet 3 01/13/2021 12/30/2021 (CRESTOR) 5 mg tablet DAILY sevelamer (RENVELA) Take 1 tablet (800 mg 90 tablet 3 01/1807/13/2021 800 mg tablet total) by mouth daily with breakfast. Take with largest meal of the day tacrolimus (PROGRAF) Take 3 capsules (3 mg 540 capsule 3 04/202003/07/2021 1 mg capsule total) by mouth 2 (two) times a day. warfarin (Coumadin) 2 Take 3 tablets (6 mg 270 tablet 3 12/202002/02/2021 mg tablet total) by mouth daily. Take 3 tablets each day for 3 days and return to Anticoagulation Clinic for INR testing. documented as of this encounter Plan of Treatment Upcoming Encounters Date Type Specialty Care Team Description 06/01/2022 Telemedicine Pharmacy An Nicholas APRN, C.N.P., D.N.P., M.S.N. [address] [place] [address] 55 [phone] (Nicolas wen) 07/31/2022 Lab Laboratory Medicine Tony Rubalcava M. B., Ch.BDavi, M.D. [address] [place], [place] 55 [phone] (Nicolas wen) 07/31/2022 Lab Laboratory Medicine Tony Rubalcava M. B., Sydnie, Mukund [address] [place] [address] [phone] (Wo rk) 07/31/2022 Office Visit Transplant Tony Rubalcava M.B., Mukund Otoole [address] [place] [address] 55 [phone] (Wo rk) 07/31/2022 Appointment Radiology Tony Rubalcava M.B., Mukund Otoole [address] [place] [address] 55 [phone] (Wo rk) 08/01/2022 Office Visit Transplant Tony Rubalcava M.B., Sydnie, Mukund [address] [place] [address] 55 [phone] (Wo rk) 08/01/2022 Clinical Support Transplant Tony Rubalcava M.B., Sydnie, Mukund [address] [place] [address] 55 [phone] (Wo rk) documented as of this encounter Procedures Procedure Name Priority Date/Time Associated Comments Diagnosis TACROLIMUS LEVEL, B Routine 02/28/2021 5:30 AM Transplant Jessica l Results for this CDT (HCC) procedure are i n the results section. documented in this encounter Results Tacrolimus, B (02/28/2021 5:30 AM CDT) P athologist Signature Tacrolimus, B 10.9 5.0-15.0 03/03/2021 SDSC (Trough) 4:23 PM CDT ng/mL Comment: ----ADDITIONAL [...] and its performa nce characteristics determined by [facility] in a manner consistent with CLIA [...] [facility] [place] [address] SUPPORT [facility] [place] [address] Laboratory Medicine and Pathology [address] [place] documented in this encounter Visit Diagnoses Diagnosis Transplant Renal (HCC) documented in this encounter Additional Health Concerns Assessment Noted Time PHQ-9 Depression Total Score: 4 01/30/2019 12:13 PM CD T documented as of this encounter Care Teams Crusher Machine Operator Relationship Specialty Start Date End Date Elsewhere, Pcp PCP - General 09/17/19 documented as of this encounter
--- OUTSIDE RECORDS SUMMARY | 2022-05-25 13:08 | XMS_ITS | Encounter Summary ---
:1960 Author Organization [facility] Address [address] [place] [address] Care Team Providers Name Role Phone Elsewhere, Pcp Primary Care Provider Unavailable Encounter Details Date Type Department Care Team Description 01/21/2021 Orders Only Division of Nephrology and Elo Trevizo R.N. Hypertension, Confucianist 200 [facility], [place] [address] [place] [address] [place] [phone] Social History Tobacco Use Types Packs/Day [...] How often do you attend sikhism or tenriism 1 to 4 times per [...] Nicholas APRN, C.N.P., D.N.P., M.S.N. [address] [place] [address] 55 [phone] (Wo rk) 07/31/2022 Lab Laboratory Medicine Tony Rubalcava M. B., Sydnie, MDebra [address] [place] [address] 55 [phone] (Wo rk) 07/31/2022 Lab Laboratory Medicine Tony Rubalcava M. B., ChBurke, MDebra [address] [place] [address] 55 [phone] (Wo rk) 07/31/2022 Office Visit Transplant Tony Rubalcava M.B., Sydnie, MDebra [address] [place] [address] 55 [phone] (Wo rk) 07/31/2022 Appointment Radiology Tony Rubalcava M.B., Sydnie, MDebra [address] [place] [address] 55 [phone] (Wo rk) 08/01/2022 Office Visit Transplant Tony Rubalcava M.B., Mukund Otoole [address] [place], [place] 55 [phone] (Wo rk) 08/01/2022 Clinical Support Transplant Tony Rubalcava M.B., Sydnie, Mukund [address] [place], [place] 55 [phone] (Wo rk) documented as of this encounter Visit Diagnoses Not on filedocumented in this encounter Additional Health Concerns Assessment Noted Time PHQ-9 Depression Total Score: 4 01/30/2019 12:13 PM CD T documented as of this encounter Care Teams Accounts Officer Relationship Specialty Start Date End Date Elsewhere, Pcp PCP - General 09/17/19 documented as of this encounter
--- OUTSIDE RECORDS SUMMARY | 2022-05-25 13:08 | XMS_ITS | Encounter Summary ---
:1960 Author Organization [facility] Address [address] [place] [address] Care Team Providers Name Role Phone Elsewhere, Pcp Primary Care Provider Unavailable Reason for Visit Reason Comments Rx Prior Authorization PA DENIED SEVELAMER 800 MG T AB Encounter Details Date Type Department Care Team Description 01/26/2021 Clinical Communication Division of Zaire Candelario, Rx Pr ior Nephrology and MATERIAL PROCESSOR, C.N.P. Authorization (CHANELLE Hypertension, [address] DENIED SEVELAM ER 800 [facility], SW MG TAB) in [facility] [address] [facility] [address] [place], [place] [phone] (Work) [phone] Social History Tobacco Use Types Packs/Day Years [...] How often do you attend faith or taoist 1 to 4 times per [...] this encounter Miscellaneous Notes Telephone Encounter - Max Salinas - 01/26/2021 10:14 AM CDT The patient's health insurer has denied prior authorization for SEVELAMER 800 MG TAB. To view the denial letter: 1. Go to Snapshot 2. Go to the purple Medications box 3. Click on the blue Prior Authorizations link 4. Under Denied, click on the blue medication link to open and view the attachment. As the prescriber your options are: ??? Appeal the decision to the insurer directly (see denial letter for how to appeal). ??? Write a new Rx for an alternative medication therapy. ??? Release the Rx to the pharmacy so the patient can pay out of pocket if they desire. To Release Rx: Open this encounter, go to Meds & Orders, click on the medication, and click the blue ???Release Rx?? button. If you have questions, please reply via QuickNote to Nela MACDONALD. Thank you, The OPP[facility] Team documented in this encounter Plan of Treatment Upcoming Encounters Date Type Specialty Care Team Description 06/01/2022 Telemedicine Pharmacy An Nicholas APRN, C.N.P., Clement., M.S.N. [address] [place] [address] [phone] (Wo rk) 07/31/2022 Lab Laboratory Medicine Tony Rubalcava M. B., Sydnie, Mukund [address] [place] [address] 55 [phone] (Wo rk) 07/31/2022 Lab Laboratory Medicine Tony Rubalcava M. B., Sydnie, Mukund [address] [place] [address] 55 [phone] (Wo rk) 07/31/2022 Office Visit Transplant Tony Rubalcava M.B., Sydnie, Mukund [address] [place] [address] [phone] (Wo rk) 07/31/2022 Appointment Radiology Tony Rubalcava M.B., Sydnie, Mukund [address] [place] [address] 55 [phone] (Wo rk) 08/01/2022 Office Visit Transplant Tony Rubalcava M.B., Sydnie, Mukund [address] [place] [address] [phone] (Wo rk) 08/01/2022 Clinical Support Transplant Tony Rubalcava M.B., Sydnie, Mukund [address] [place] [address] 55 [phone] (Wo rk) documented as of this encounter Visit Diagnoses Not on filedocumented in this encounter Additional Health Concerns Assessment Noted Time PHQ-9 Depression Total Score: 4 01/30/2019 12:13 PM CD T documented as of this encounter Care Teams Clinical Scientist Relationship Specialty Start Date End Date Elsewhere, Pcp PCP - General 09/17/19 documented as of this encounter
--- OUTSIDE RECORDS SUMMARY | 2022-05-25 13:08 | XMS_ITS | Encounter Summary ---
:1960 Author Organization [facility] Address [address] [place] [id number] Care Team Providers Name Role Phone Elsewhere, Pcp Primary Care Provider Unavailable Encounter Details Date Type Department Care Team Description 01/06/2021 Orders Only Ata Dick Guilherme, Yvonne Bautista Kidney Disease; [facility] for M.D. Pretransplant Recipient Evaluation Exam Transplantation and [address] [place] [address] Clinical Regeneration in [place], [place] [address] [place] [address] [place] [address] (Work) [phone] Social History Tobacco Use Types Packs/Day Years [...] How often do you attend zoroastrian or yarsani 1 to 4 times per [...] An Nicholas APRN, C.N.P., D.N.P., M.S.N. [address] [place] [address] 55 [phone] (Nicolas wen) 07/31/2022 Lab Laboratory Medicine Tony Rubalcava M. B., ChDaviBDavi, M.Michelle. [address] [place] [address] 55 [phone] (Nicolas wen) 07/31/2022 Lab Laboratory Medicine Tony Rubalcava M. B., ChDaviBDavi, MElvia. [address] [place] [address] 55 [phone] (Nicolas wen) 07/31/2022 Office Visit Transplant Tony Rubalcava M.B., ChBurke, MElvia. [address] [place] [address] 55 [phone] (Nicolas wen) 07/31/2022 Appointment Radiology Tony Rubalcava M.B., Mukund Otoole [address] [place] [address] 55 [phone] (Wo rk) 08/01/2022 Office Visit Transplant Tony Rubalcava M.B., Mukund Otoole [address] [place] [address] 55 [phone] (Wo rk) 08/01/2022 Clinical Support Transplant Tony Rubalcava M.B., Mukund Otoole [address] [place] [address] 55 [phone] (Wo rk) documented as of this encounter Visit Diagnoses Diagnosis Chronic Kidney Disease Pretransplant Recipient Evaluation Exam documented in this encounter Additional Health Concerns Assessment Noted Time PHQ-9 Depression Total Score: 4 01/30/2019 12:13 PM CD T documented as of this encounter Care Teams Melt House Supervisor Relationship Specialty Start Date End Date Elsewhere, Pcp PCP - General 09/17/19 documented as of this encounter
--- OUTSIDE RECORDS SUMMARY | 2022-05-25 13:08 | XMS_ITS | Encounter Summary ---
:[address] [facility] Address [address] [place] [address] Care Team Providers Name Role Phone Elsewhere, Pcp Primary Care Provider Unavailable Encounter Details Date Type Department Care Team Description 01/17/2021 Clinical Communication Division of Nephrology Steve Martínez and Hypertension in Fracisco Garcia D.O. [place], [place] [address] [facility] 200 [place] [phone] Social History Tobacco Use Types Packs/Day Years [...] How often do you attend religious or baptist 1 to 4 times per [...] this encounter Miscellaneous Notes Telephone Encounter - Steve Martínez Jr., D.O. - 01/17/2021 8:05 AM CDT Patient phone call: Let her know the tentative plans for her to have nothing to eat after midnight and be available for possible declot tomorrow in [place], verses placement of a catheter. Spoke with the interventional radiology team on-call, they are not going to be able to accommodate her today and is truly not emergency that she needs declotting. It is not an emergency that she needs a line placed today either. We will plan also to investigate other possible interventional radiology practices which can accommodate her, in the [facility] area. I have asked her to take 1 mg of warfarin tonight, in order to allow her to not be terribly thrombogenic, wait but also able to safely undergo declot without excess bleeding. 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 documented in this encounter Plan of Treatment Upcoming Encounters Date Type Specialty Care Team Description 06/01/2022 Telemedicine Pharmacy An Nicholas, CHRISTOPHER, C.N.P., D.N.P., M.S.N. [address] [place] [address] [phone] (Wo rk) 07/31/2022 Lab Laboratory Medicine Tony Rubalcava M. B., Sydnie, MDebra [address] [place] [address] [phone] (Wo rk) 07/31/2022 Lab Laboratory Medicine Tony Rubalcava M. B., Sydnie, MDebra [address] [place] [address] [phone] (Wo rk) 07/31/2022 Office Visit Transplant Tony Rubalcava M.B., Sydnie, MDebra [address] [place] [address] [phone] (Wo rk) 07/31/2022 Appointment Radiology Tony Rubalcava M.B., ChBurke, MElvia. [address] [place] [address] 55 [phone] (Wo rk) 08/01/2022 Office Visit Transplant Tony Rubalcava M.B., ChBurke, M.D. [address] [place] [address] [phone] (Wo rk) 08/01/2022 Clinical Support Transplant Tony Rubalcava M.B., ChBurke, M.D. [address] [place] [address] 55 [phone] (Wo rk) documented as of this encounter Visit Diagnoses Not on filedocumented in this encounter Additional Health Concerns Assessment Noted Time PHQ-9 Depression Total Score: 4 01/30/2019 12:13 PM CD T documented as of this encounter Care Teams Assistant Shift Supervisor Relationship Specialty Start Date End Date Elsewhere, Pcp PCP - General 09/17/19 documented as of this encounter
--- OUTSIDE RECORDS SUMMARY | 2022-05-25 13:08 | XMS_ITS | Encounter Summary ---
:1960 Author Organization [facility] [place] [facility] Address [address] [place] [address] Care Team Providers Name Role Phone Elsewhere, Pcp Primary Care Provider Unavailable Encounter Details Date Type Department Care Team Description 01/27/2021 Orders Only Pharmacy Prior Auth Keny Mensah [phone] Social History Tobacco Use Types Packs/Day Years [...] How often do you attend hinduism or roman catholic 1 to 4 times [...] An Nicholas APRN C.N.P., D.N.P., M.S.N. [address] [place] [address] 55 [phone] (Nicolas wen) 07/31/2022 Lab Laboratory Medicine Tony Rubalcava M. B., ChDaviBDavi, M.D. [address] [place] [address] 55 [phone] (Nicolas wen) 07/31/2022 Lab Laboratory Medicine Tony Rubalcava M. B., ChDaviBDavi, M.D. [address] [place] [address] 55 [phone] (Nicolas wen) 07/31/2022 Office Visit Transplant Tony Rubalcava M.B., ChDaviBDavi, M.D. [address] [place] [address] 55 [phone] (Nicolas wen) 07/31/2022 Appointment Radiology Tony Rubalcava M.B., ChDaviBDavi, MDaviD. [address] [place] [address] 55 [phone] (Nicolas wen) 08/01/2022 Office Visit Transplant Tony Rubalcava M.B., Mukund Otoole [address] [place] [address] [phone] (Wo behzad) 08/01/2022 Clinical Support Transplant Tony Rubalcava M.B., Mukund Otoole [address] [place], [place] [phone] (Nicolas wen) documented as of this encounter Visit Diagnoses Not on filedocumented in this encounter Additional Health Concerns Assessment Noted Time PHQ-9 Depression Total Score: 4 01/30/2019 12:13 PM CD T documented as of this encounter Care Teams Wire Harness Design Engineer Relationship Specialty Start Date End Date Elsewhere, Pcp PCP - General 09/17/19 documented as of this encounter
--- OUTSIDE RECORDS SUMMARY | 2022-05-25 13:08 | XMS_ITS | Encounter Summary ---
:1960 Author Organization [facility] Address 200 [place] [address] Care Team Providers Name Role Phone Elsewhere, Pcp Primary Care Provider Unavailable Reason for Referral Outpatient (Routine) - Closed Specialty Diagnoses / Procedures Referred By Contact Refer red To Contact Radiology Diagnoses Chronic Failure Renal End Stage Renal Disease Dialysis Dependent (HCC) Zaire Candelario APRN, C.N.P. [facility] Procedures IR Dialysis / High Flow Catheter Removal 200 [place], [place] [address] Referral ID Status Reason Start Date Expiration Date Visits Requ ested Visits Authorized [id number] Closed 01/10/2021 01/10/2022 1 1 Encounter Details Date Type Department Care Team Description 01/10/2021 Orders Only Division of Nephrology Zaire Candelario, Chron ic Failure Renal and Hypertension, [facility] CHRISTOPHER, C.N. P. End Stage Renal Disease [facility], in [address] [facility] Dialysis Dependent [place], [place] (HCC) (Primary Dx) [address] [facility] [address] [place], [place] [phone] (Work) [phone] Social History Tobacco Use Types Packs/Day Years [...] How often do you attend zoroastrianism or restorationism 1 to 4 times per year 12/23/2021 [...] An Nicholas APRN, C.N.P., D.N.P., M.S.N. [address] [place] [address] [phone] (Wo rk) 07/31/2022 Lab Laboratory Medicine Tony Rubalcava M. B., Ch.BDavi, M.Michelle. [address] [place] [address] [phone] (Wo rk) 07/31/2022 Lab Laboratory Medicine Tony Rubalcava M. B., Sydnie, Mukund [address] [place] [address] [phone] (Wo rk) 07/31/2022 Office Visit Transplant Tony Rubalcava M.B., Sydnie, Mukund [address] [place] [address] [phone] (Wo rk) 07/31/2022 Appointment Radiology Tony Rubalcava M.B., Sydnie, Mukund [address] [place] [address] [phone] (Wo rk) 08/01/2022 Office Visit Transplant Tony Rubalcava M.B., Sydnie, Mukund [address] [place] [address] [phone] (Wo rk) 08/01/2022 Clinical Support Transplant Tony Rubalcava M.B., Sydnie, Mukund [address] [place] [address] [phone] (Wo rk) documented as of this encounter Results IR Dialysis / High Flow Catheter Removal (01/13/2021 2:00 PM CDT) Anatomical Region Laterality Modality Body, Vascular Interventional RST LOS, Vascular N/A X-Ray Angiography Interventional ARZ LOS, Vascular Interventional FLA LOS Specimen (Source) Anatomical Collection Method Collection Time Re ceived Time Location / / Volume Laterality 01/13/2021 2:02 PM CDT Impressions 01/13/2021 2:11 PM CDT Tunneled left internal jugular dialysis catheter removed intact and in its entirety. Patient tolerated proce dure without immediate complication. NR Narrative 01/13/2021 2:11 PM CDT EXAM: IR DIALYSIS / HIGH FLOW CATHETER REMOVAL CLINICAL HISTORY: 60-year-old female wit h significant history of end-stage renal disease, dialysis dependent underwent pl acement of a tunneled left internal jugular dialysis catheter placement done 12/20/2020 in the setting of the right arm graft being thrombosed. After succes sful angioplasty and stenting of the right upper extremity fistula and balloo n angioplasty of the right innominate vein narrowing, right upper extremity fi stula now functioning as expected for hemodialysis. With a functioning right u pper extremity fistula, the tunneled left internal jugular dialysis catheter is deemed no longer needed and ready for removal. TECHNIQUE: With patient in bed, recumben t supine positioning, tunneled left internal jugular dialysis catheter dress ing and retention suture removed without difficulty. Puncture site prepped and dr deeed in the standard sterile fashion. Lidocaine 1 percent local anesthetic wendi lied to the puncture site and catheter tract. Catheter cuff gently explanted wi th forceps. Catheter removed intact and in its entirety. Manual compression used to obtain hemostasis. Sterile gauze and dressing reapplied to the site and shoul d remain intact for 48 hours. After dressing is removed, patient may shower but should avoid submerging the puncture site in water such as tub bathing until completely healed. PREPROCEDURE: Patient seen, evaluated, h istory reviewed and deemed appropriate for procedure. Procedure details discuss ed to include risks, benefits, alternatives along with postprocedure ca re and restrictions instructions. Informed consent obtained, signed, up-to -date and available on electronic records. Preprocedure pause conducted to confirm correct patient with correct procedure. Procedure Note Lakshmi Lynn, CHRISTOPHER, C.N.P. - 01/14/20 21 EXAM: IR DIALYSIS / HIGH FLOW CATHETER R EMOVAL CLINICAL HISTORY: 60-year-old female wit h significant history of end-stage renal disease, dialysis dependent underwent pl acement of a tunneled left internal jugular dialysis catheter placement done 12/20/2020 in the setting of the right arm graft being thrombosed. After succes sful angioplasty and stenting of the right upper extremity fistula and balloo n angioplasty of the right innominate vein narrowing, right upper extremity fi stula now functioning as expected for hemodialysis. With a functioning right u pper extremity fistula, the tunneled left internal jugular dialysis catheter is deemed no longer needed and ready for removal. TECHNIQUE: With patient in bed, recumben t supine positioning, tunneled left internal jugular dialysis catheter dress ing and retention suture removed without difficulty. Puncture site prepped and dr amrita in the standard sterile fashion. Lidocaine 1 percent local anesthetic wendi lied to the puncture site and catheter tract. Catheter cuff gently explanted wi th forceps. Catheter removed intact and in its entirety. Manual compression used to obtain hemostasis. Sterile gauze and dressing reapplied to the site and shoul d remain intact for 48 hours. After dressing is removed, patient may shower but should avoid submerging the puncture site in water such as tub bathing until completely healed. PREPROCEDURE: Patient seen, evaluated, h istory reviewed and deemed appropriate for procedure. Procedure details discuss ed to include risks, benefits, alternatives along with postprocedure ca re and restrictions instructions. Informed consent obtained, signed, up-to -date and available on electronic records. Preprocedure pause conducted to confirm correct patient with correct procedure. IMPRESSION: Tunneled left internal jugular dialysis catheter removed intact and in its entirety. Patient tolerated proce dure without immediate complication. NR Zaire Candelario APRN, C.N.P. IMG IR PROCEDURES documented in this encounter Visit Diagnoses Diagnosis Chronic Failure Renal End Stage Renal Di sease Dialysis Dependent (HCC) - Primary Chronic Failure Renal End Stage Renal Di sease Dialysis Dependent (HCC) documented in this encounter Additional Health Concerns Assessment Noted Time PHQ-9 Depression Total Score: 4 01/30/2019 12:13 PM CD T documented as of this encounter Care Teams Water Resources Engineer Relationship Specialty Start Date End Date Elsewhere, Pcp PCP - General 09/17/19 documented as of this encounter
--- OUTSIDE RECORDS SUMMARY | 2022-05-25 13:08 | XMS_ITS | Encounter Summary ---
:1960 Author Organization [facility] Address 200 [place] [address] Care Team Providers Name Role Phone Elsewhere, Pcp Primary Care Provider Unavailable Reason for Referral Outpatient (Routine) - Closed Specialty Diagnoses / Procedures Referred By Contact Refer red To Contact Radiology Diagnoses Chronic Failure Renal End Stage Renal Disease Dialysis Dependent (HCC) Zaire Candelario APRN, C.N.P. [facility] Procedures IR Dialysis / High Flow Catheter Removal [address] [place], [place] [address] Referral ID Status Reason Start Date Expiration Date Visits Requ ested Visits Authorized [id number] Closed 01/10/2021 01/10/2022 1 1 Reason for Visit Outpatient (Routine) - Closed Specialty Diagnoses / Procedures Referred By Contact Refer red To Contact Radiology Diagnoses Chronic Failure Renal End Stage Renal Disease Dialysis Dependent (HCC) Zaire Candelario APRN, C.N.P. [facility] Procedures IR Dialysis / High Flow Catheter Removal [address] [place], [place] [address] Referral ID Status Reason Start Date Expiration Date Visits Requ ested Visits Authorized [id number] Closed 01/10/2021 01/10/2022 1 1 Encounter Details Date Type Department Care Team Description 01/13/2021 Hospital Encounter Department of Candelario, Zaire P, Chronic Failure Renal Radiology, Earnest WHITE C.N.P. End Stage Renal Building, in 200 [facility] Disease Dialysis [place], [place] Dependent (HCC) 200 [facility] [address] [place], [place] [phone] (Work) [phone] Social History Tobacco Use Types Packs/Day Years [...] How often do you attend baptism or taoism 1 to 4 times per [...] Sign Reading Time Taken Comments Blood Pressure 162/106 01/13/2021 1:47 PM CDT Pulse 66 01/13/2021 1:47 PM CDT Temperature 36.5 ??C (97.7 ??F) 01/13/2021 1:47 PM CDT Respiratory Rate 12 01/13/2021 1:47 PM CDT Oxygen Saturation 97% 01/13/2021 1:47 PM CDT Inhaled Oxygen Concentration - - Weight - - Height - - Body Mass Index - - documented in this encounter Discharge Instructions AttachmentsThe following attachments cannot be sent through Care Everywhere.Care After Central Venous Catheter Removal (Niuean)documented in this encounter Medications at Time of [...] 1 tablet (800 mg 90 tablet 3 01/2501/18/2021 800 mg tablet total) by mouth daily with breakfast. Take with largest meal of the day tacrolimus (PROGRAF) Take 3 capsules (3 mg 540 capsule 3 04/202003/07/2021 1 mg capsule total) by mouth 2 (two) times a day. warfarin (Coumadin) 2 Take 3 tablets (6 mg 270 tablet 3 05/12/202002/02/2021 mg tablet total) by mouth daily. Take [...] failure (DIALYVITE) every evening. 100-1 mg tablet documented as of this encounter Plan of Treatment Upcoming Encounters Date Type Specialty Care Team Description 06/01/2022 Telemedicine Pharmacy An Nicholas APRN, C.N.P., D.N.P., M.S.N. [address] [place] [address] 55 [phone] (Nicolas wen) 07/31/2022 Lab Laboratory Medicine Tony Rubalcava M. B., Ch.B., M.D. [address] [place] [address] 55 [phone] (Nicolas wen) 07/31/2022 Lab Laboratory Medicine Tony Rubalcava M. B., Ch.B., M.D. [address] [place] [address] 55 [phone] (Nicolas wen) 07/31/2022 Office Visit Transplant Tony Rubalcava M.B., Mukund Otoole [address] [place] [address] [phone] (Wo rk) 07/31/2022 Appointment Radiology Tony Rubalcava M.B., Mukund Otoole [address] [place] [address] 55 [phone] (Wo rk) 08/01/2022 Office Visit Transplant Tony Rubalcava M.B., Mukund Otoole [address] [place] [address] 55 [phone] (Wo rk) 08/01/2022 Clinical Support Transplant Tony Rubalcava M.B., Sydnie, Mukund [address] [place] [address] 55 [phone] (Wo rk) documented as of this encounter Procedures Procedure Name Priority Date/Time Associated Comments Diagnosis IR DIALYSIS / RAD - Routine 01/13/2021 2:00 Chronic Failure Results for this HIGH FLOW (most inpatients PM CDT Renal End Stage procedur e are in CATHETER REMOVAL and all Renal Disease the result s outpatients) Dialysis section. Dependent (HCC) documented in this encounter Results IR Dialysis / High [...] patient with correct procedure. Procedure Note Lakshmi Lynn APRN, C.N.P. - 01/14/20 21 EXAM: IR DIALYSIS [...] as of this encounter Care Teams Die Polisher Relationship Specialty Start Date End Date Elsewhere, Pcp PCP - General 09/17/19 documented as of this encounter
--- OUTSIDE RECORDS SUMMARY | 2022-05-25 13:08 | XMS_ITS | Encounter Summary ---
:1960 Author Organization [facility] Address [address] [place] [address] Care Team Providers Name Role Phone Elsewhere, Pcp Primary Care Provider Unavailable Reason for Visit Reason Comments Med Refill Encounter Details Date Type Department Care Team Description 01/12/2021 Refill Division of Nephrology and Joel Fisher APRN, Med Refill Hypertension in [facility].N.Banner, M.S.N. [place] [address] [facility] [address] [place] [address] [place] [address] [phone] Social History Tobacco Use Types Packs/Day Years [...] How often do you attend spiritism or anglican 1 to 4 times per [...] place to sleep or slept in a care home (including now)? Education Answer Date Recorded [...] Nicholas APRN, C.N.P., D.N.P., M.S.N. [address] [place] [address] 55 [phone] (Nicolas wen) 07/31/2022 Lab Laboratory Medicine Tony Rubalcava M. B., Ch.BDavi, M.D. [address] [place] [address] 55 [phone] (Nicolas wen) 07/31/2022 Lab Laboratory Medicine Tony Rubalcava M. B., ChDaviBDavi, MDaviD. [address] [place] [address] 55 [phone] (Nicolas wen) 07/31/2022 Office Visit Transplant Tony Rubalcava M.B., ChDaviBDavi, M.D. [address] [place] [address] 55 [phone] (Nicolas wen) 07/31/2022 Appointment Radiology Tony Rubalcava M.B., Sydnie, Mukund [address] [place] [address] 55 [phone] (Wo rk) 08/01/2022 Office Visit Transplant Tony Rubalcava M.B., Mukund Otoole [address] [place] [address] 55 [phone] (Wo rk) 08/01/2022 Clinical Support Transplant Tony Rubalcava M.B., Sydnie, Mukund [address] [place] [address] 55 [phone] (Wo rk) documented as of this encounter Visit Diagnoses Not on filedocumented in this encounter Additional Health Concerns Assessment Noted Time PHQ-9 Depression Total Score: 4 01/30/2019 12:13 PM CD T documented as of this encounter Care Teams Instructor [employer] Relationship Specialty Start Date End Date Elsewhere, Pcp PCP - General 09/17/19 documented as of this encounter
--- OUTSIDE RECORDS SUMMARY | 2022-05-25 13:09 | XMS_ITS | Encounter Summary ---
:1960 Author Organization [facility] Address [address] [place] [address] Care Team Providers Name Role Phone Elsewhere, Pcp Primary Care Provider Unavailable Encounter Details Date Type Department Care Team Description 12/20/2020 Documentation Division of Nephrology and Marisel Trevizo, Hypertension in [facility] [address] [facility] [address] [place] [phone] Social History Tobacco Use Types Packs/Day Years [...] How often do you attend jew or taoism 1 to 4 times per [...] AM CDT documented as of this encounter Nursing Notes Elo Trevizo R.N. - 12/20/2020 8:[address] Martínez CHIEF COMPLAINT/PURPOSE OF VISIT REASON FOR REFERRAL: Clotted arterial venous graft, declot and fistulogram with CLASSIFICATION OFFICER vs TDC placement HISTORY OF PRESENT ILLNESS ACCESS: Gortex AV Graft Date placed - 04/26/2019 Provider - Dr. Yu LOCATION OF ACCESS: Right upper arm PERTINENT PROCEDURAL HISTORY: Patient referred by Dr. Martínez for declot, fistulogram and angioplasty as indicated. This morning when she presented to dialysis and her fistula was found to be clotted.Her last declot procedure was on 12/17/[address] Mcconnell. She had a declot procedure, 12/15/20, and one other declot procedure on 05/21/19, she hasn't required any other interventions. She??dialyzes at the [facility] unit on a??Sunday, Sunday and Sunday schedule. She has been fasting today and the plan will be to dialyze tomorrow, locally at another unit at 7:45 am. DIABETES: Not diabetic. ANTICOAGULATION: None. LABORATORY RESULTS: Current Labs in [facility] under Care Everywhere, [facility]. IMPRESSION/REPORT/PLAN SPECIFIC PATIENT INSTRUCTIONS: Patient instructed to report to the [facility], Howard Iglesias today. Please arrive at 1 pm for your procedure. You must have a import coordination and production head to drive you home due to the sedation you will receive. You cannot drive for 24 hours after sedation. Please do not eat or drink after midnight the day of your procedure. Your procedure may be canceled or delayed if you do so. It is important to have an empty stomach to avoid problems with sedation. You may take your morning medication with a small amount of water. Bring the rest of your medicines that you take with you. Plan on spending about half to three fourths of the day in [place] for this procedure. There is generally some waiting involved prior to the procedure. Post Access Instructions: Please plan to dialyze tomorrow, locally at another unit at 7:45 am. Appointment scheduled via Annamaria at Interventional Radiology. Approval to add procedure was given by Dr. Basurto who works with Dr. Mcconnell. documented in this encounter Plan of Treatment Upcoming Encounters Date Type Specialty Care Team Description 06/01/2022 Telemedicine Pharmacy An Nicholas APRN, C.N.P., D.N.P., M.S.N. [address] [place] [phone] (Nicolas wen) 07/31/2022 Lab Laboratory Medicine Tony Rubalcava M. B., ChBurke, M.Michelle. 200 [place], [place] [phone] (Nicolas wen) 07/31/2022 Lab Laboratory Medicine Tony Rubalcava M. B., ChBurke, MElvia. [address] [place] [phone] (Nicolas wen) 07/31/2022 Office Visit Transplant Tony Rubalcava M.B., ChBurke, M.Michelle. [address] [place] [phone] (Nicolas wen) 07/31/2022 Appointment Radiology Tony Rubalcava M.B., Sydnie, Mukund [address] [place] [phone] (Wo rk) 08/01/2022 Office Visit Transplant Tony Rubalcava M.B., Mukund Otoole [address] [place] [phone] (Wo rk) 08/01/2022 Clinical Support Transplant Tony Rubalcava M.B., Sydnie, Mukund [address] [place] [phone] (Wo rk) documented as of this encounter Visit Diagnoses Not on filedocumented in this encounter Additional Health Concerns Assessment Noted Time PHQ-9 Depression Total Score: 4 01/30/2019 12:13 PM CD T documented as of this encounter Care Teams Tank Crewmember Relationship Specialty Start Date End Date Elsewhere, Pcp PCP - General 09/17/19 documented as of this encounter
--- OUTSIDE RECORDS SUMMARY | 2022-05-25 13:09 | XMS_ITS | Encounter Summary ---
:1960 Author Organization [facility] Address [address] [place] [address] Care Team Providers Name Role Phone Elsewhere, Pcp Primary Care Provider Unavailable Reason for Visit Outpatient (Routine) - Closed Specialty Diagnoses / Procedures Referred By Contact Refer red To Contact Radiology Diagnoses Chronic Kidney Disease Stage 5 Glomerular Filtration Rate Less Than 15 (HCC) Failure Renal End Stage (HCC) Thombosis Arteriovenous Fistula Initial ([facility]) Steve Martínez Jr., Procedures IR Dialysis Fistula Stent Right IR Dialysis Fistula Declot Right D.O. [address] [place] [address] Referral ID Status Reason Start Date Expiration Date Visits Requ ested Visits Authorized [id number] Closed 12/20/2020 12/20/2021 1 1 Encounter Details Date Type Department Care Team Description 12/23/2020 Hospital Encounter Department of Josr Martínez Jr., D.O. [address] [place] [phone] Chronic Kidney Disease Stage 5 Glomerula r Filtration Rate Less Than 15 (HCC); Radiology, Jatin De La Fuente M.D. [address] [place] [phone] Failure Renal End Stage (HCC); Building, in [place] Arter iovenous Fistula Initial ([facility]) [place], [place] [address] [place] [address] Social History Tobacco Use Types Packs/Day Years [...] How often do you attend anabaptist or jehovah's witness 1 to 4 times [...] Sign Reading Time Taken Comments Blood Pressure 203/97 12/23/2020 10:09 AM CDT Pulse 57 12/23/2020 10:09 AM CDT Temperature 36.7 ??C (98.1 ??F) 12/23/2020 10:09 AM CDT Respiratory Rate 11 12/23/2020 10:09 AM CDT Oxygen Saturation 98% 12/23/2020 10:09 AM CDT Inhaled Oxygen Concentration - - [...] 5 mg total) by mouth daily. tablet sevelamer (RENVELA) Take 1 tablet (800 [...] failure (DIALYVITE) every evening. 100-1 mg tablet rosuvastatin TAKE 1 TABLET BY MOUTH 90 tablet 3 12/29/2019 01/13/2021 (CRESTOR) 5 mg tablet DAILY. documented as of this encounter Procedure Notes Jatin Mcconnell M.D. - 12/23/2020 10:29 AM CDT PATIENT DISPOSITION Return to Outpatient Unit for recovery. Discharge patient when discharge criteria met. POST-PROCEDURE DIAGNOSIS Thrombosed graft PROCEDURE PERFORMED AND DESCRIPTION Thrombectomy and balloon angioplasty of right upper extremity graft PROCEDURE DETAILS See Radiology Report SPECIMENS REMOVED None FINDINGS Mechanical thrombectomy and balloon angioplasty/stenting of right upper extremity graft. PRIMARY PROCEDURALIST Dr. Jatin Mcconnell ASSISTANTS None COMPLICATIONS None. DRAINS None. IMPLANTS None. ANESTHESIA Moderate Sedation. FLUIDS None ESTIMATED BLOOD LOSS <5ml CURRENT MEDICATIONS No Medication Changes FOLLOW-UP LETTER None. MAY RETURN TO WORK Not applicable PATIENT INSTRUCTIONS No return appointment documented in this encounter Nursing Notes Val Siegel R.N. - 12/23/2020 12:39 PM CDT Patient discharged with purse string sutures and stopcock in place after her dialysis fistula declotting procedure on 12/23. We were unable to achieve hemostasis upon removing them, so she will keep the in place until after dialysis on 12/24 when we will attempt to remove them again. documented in this encounter Plan of Treatment Upcoming Encounters Date Type Specialty Care Team Description 06/01/2022 Telemedicine Pharmacy An Nicholas APRN, C.N.P., WhitneyNDaviP., M.S.N. [address] [place] [phone] (Wo rk) 07/31/2022 Lab Laboratory Medicine Tony Rubalcava M. B., Sydnie, MDebra [address] [place] [phone] (Wo rk) 07/31/2022 Lab Laboratory Medicine Tony Rubalcava M. B., Sydnie, Mukund [address] [place] [phone] (Wo rk) 07/31/2022 Office Visit Transplant Tony Rubalcava M.B., Sydnie, MDebra [address] [place] [phone] (Wo rk) 07/31/2022 Appointment Radiology Tony Rubalcava M.B., Sydnie, MDebra [address] [place] [phone] (Wo rk) 08/01/2022 Office Visit Transplant Tony Rubalcava M.B., ChBurke, MDebra [address] [place] [phone] (Wo rk) 08/01/2022 Clinical Support Transplant Tony Rubalcava M.B., Sydnie, MDebra [address] [place] [phone] (Wo rk) documented as of this encounter Procedures Procedure Name Priority Date/Time Associated Diagnosis Comme nts FL MOD SED SAME RAD - Routine 12/23/2020 9:56 Chronic Kidney Result s for this PHYS/QHP INITIAL (most inpatients AM CDT Disease Stage 5 proc edure are in 15 5 YRS OR and all Glomerular the results OLDER outpatients) Filtration Rate Less section . Than 15 (HCC) Failure Renal End Stage (HCC) Thombosis Arteriovenous Fistula Initial (HCC) documented in this encounter Results IR Dialysis Fistula Stent Right (12/23/2020 9:56 AM CDT) Anatomical Region Laterality Modality Body, Vascular Interventional RST LOS, Vascular Right X-Ray Angiography Interventional ARZ LOS, Vascular Interventional FLA LOS Specimen (Source) Anatomical Collection Method Collection Time Re ceived Time Location / / Volume Laterality 12/23/2020 2:34 PM CDT Impressions 12/24/2020 4:10 PM CDT 1. ??Balloon angioplasty of nonocclusive thrombus throughout the right brachial artery to axillary vein graft. Placement of a 10 mm x 5 cm Viabahn stent in the axillary vein to overlap with the venous anastomosis stent. 2. ??Mild narrowing of the right innomin ate vein treated with up to 10 mm balloon angioplasty. 3. ??Patient to return in 24 hours for r emoval of the temporary pursestring sutures. 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 FINDINGS: ??The right upper extremity wa s prepped and draped in routine sterile fashion. 1% lidocaine was used as local anesthetic. Under ultrasound guidance, the graft was accessed in antegrade fash ion near the anastomosis. Wire was advanced and the micropuncture sheath pl aced. Fistulogram demonstrated recurrent thrombus within the graft. High-grade st enosis in the graft at the level of the proximal humerus as well as thrombus wit hin the stent. The micropuncture sheath was exchanged for a 6-Israeli vascular [employer]. The patient was systemically heparinized. The graft, including the ve nous anastomotic stent, was dilated using a 6 mm balloon. Follow-up fistulog selene showed resolution with sluggish flow demonstrated due to narrowing in the rig ht innominate vein and residual thrombus in the medial edge of the venous anastom otic stent. A 10 mm x 5 cm Viabahn stent was deployed into the axillary vein to o verlap the venous anastomotic stent. The stent was gently dilated with a 7 mm bal loon. The medial edge of the axillary vein stent was dilated to 10 mm. The rig ht innominate vein was dilated to up to 10 mm. Follow-up fistulogram showed esta blished flow throughout the graft and venous anastomosis. The flow, however, r emained sluggish. Under ultrasound guidance, a second access was obtained a t the level of the distal humerus in retrograde fashion. A wire was advanced across the arterial anastomosis and a Kumpe catheter placed in the brachial ar north. Fistulogram showed mild narrowing and small thrombus at the arterial anast omosis. The arterial anastomosis was gently dilated with a 5 mm balloon. Foll ow-up fistulogram through a Kumpe catheter positioned in the right brachia l artery showed excellent angiographic results with patent arterial anastomosis . Final fistulogram showed excellent flow throughout the graft, including the anastomosis and central veins. The sheaths were removed and hemostasis at b oth access sites achieved with temporary pursestring sutures. No immediate compli cation. PREPROCEDURE: Patient seen, evaluated, h istory reviewed, [...] procedure. The total intra-procedural sedation time was: 101 minutes. Procedure Note Jatin Mcconnell M.D. - 12/24/2020Fo rmatting of this note might be different from the original. 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 FINDINGS: The right upper extremity was prepped and draped in routine sterile fashion. 1% lidocaine was used as local anesthetic. Under ultrasound guidance, the graft was accessed in antegrade fash ion near the anastomosis. Wire was advanced and the micropuncture sheath pl aced. Fistulogram demonstrated recurrent thrombus within the graft. High-grade st enosis in the graft at the level of the proximal humerus as well as thrombus wit hin the stent. The micropuncture sheath was exchanged for a 6-Israeli vascular sh eath. The patient was systemically heparinized. The graft, including the ve nous anastomotic stent, was dilated using a 6 mm balloon. Follow-up fistulog selene showed resolution with sluggish flow demonstrated due to narrowing in the rig ht innominate vein and residual thrombus in the medial edge of the venous anastom otic stent. A 10 mm x 5 cm Viabahn stent was deployed into the axillary vein to o verlap the venous anastomotic stent. The stent was gently dilated with a 7 mm bal loon. The medial edge of the axillary vein stent was dilated to 10 mm. The rig ht innominate vein was dilated to up to 10 mm. Follow-up fistulogram showed esta blished flow throughout the graft and venous anastomosis. The flow, however, r emained sluggish. Under ultrasound guidance, a second access was obtained a t the level of the distal humerus in retrograde fashion. A wire was advanced across the arterial anastomosis and a Kumpe catheter placed in the brachial ar north. Fistulogram showed mild narrowing and small thrombus at the arterial anast omosis. The arterial anastomosis was gently dilated with a 5 mm balloon. Foll ow-up fistulogram through a Kumpe catheter positioned in the right brachia l artery showed excellent angiographic results with patent arterial anastomosis . Final fistulogram showed excellent flow throughout the graft, including the anastomosis and central veins. The sheaths were removed and hemostasis at b oth access sites achieved with temporary pursestring sutures. No immediate compli cation. PREPROCEDURE: Patient seen, evaluated, h istory reviewed, [...] procedure. The total intra-procedural sedation time was: 101 minutes. IMPRESSION: 1. Balloon angioplasty of nonocclusive t hrombus throughout the right brachial artery to axillary vein graft. Placement of a 10 mm x 5 cm Viabahn stent in the axillary vein to overlap with the venous anastomosis stent. 2. Mild narrowing of the right innominat e vein treated with up to 10 mm balloon angioplasty. 3. Patient to return in 24 hours for rem oval of the temporary pursestring sutures. Brody Rasheed Jr. IR PROCEDURES documented in this encounter Visit Diagnoses Diagnosis Chronic Kidney Disease Stage 5 Glomerula r Filtration Rate Less Than 15 (HCC) Failure Renal End Stage (HCC) Thombosis Arteriovenous Fistula Initial (HCC) documented in this encounter Administered Medications Inactive Administered Medications - up to 3 most recent administrations Medication Order MAR Action Action Date Dose Rate Site fentaNYL injection 25 mcg Given 12/23/2020 9:50 AM CDT 25 mcg (SUBLIMAZE) 25 mcg, intravenous, Every 2 min PRN, sedation, or pain before and during sedation procedure, Starting on Elizabeth 12/23/20 at 0759, Intraprocedure (RAD), Administer over 1 minute immediately prior to the procedure. May repeat every 2 minutes to a maximum of 200 mcg, until pain score of 3 or less, or until the patient meets the pain comfort goal. Do not give if respiratory rate is less than 8 breaths/minute Given 12/23/2020 9:46 AM CDT 25 mcg Given 12/23/2020 9:31 AM CDT 25 mcg flumazeniL injection 0.2 mg (ROMAZICON) 0.2 mg, intravenous, Once as needed, rev ersal, Starting on Elizabeth 12/23/20 at 0759, For 1 dose, Intraprocedure (RAD), Administer once if patient has a RASS score of -4, -5 and has a respiratory rate less than 8 breaths/minute. heparin (porcine) 1,000 unit/mL injectio n Given 12/23/2020 9:20 AM 2,000 Units Code/trauma/sedation medication, Starting CDT on Elizabeth 12/23/20 at 0827 Given 12/23/2020 9:11 AM CDT 3,000 Units Given 12/23/2020 8:27 AM CDT 3,000 Units iohexoL 300 mg iodine/mL solution (OMNIP AQUE) Given 12/23/2020 9:54 AM CDT 150 mL Code/trauma/sedation medication, Starting on Elizabeth 12/23/20 at 0954 lidocaine-sodium bicarbonate (buffered) Given 12/23/2020 9:54 AM CDT 10 mL 0.9%-8.4% injection infiltration, Code/trauma/sedation medication, Starting on Elizabeth 12/23/20 at 0954 midazolam (PF) injection 0.5 mg (VERSED) 0.5 mg, intravenous, Once as needed, sed ation, Starting on Elizabeth 12/23/20 at 0759, For 1 dose, Intraprocedure (RAD) midazolam (PF) injection 0.5 mg (VERSED) Given 12/23/2020 9:47 AM CDT 0.5 mg 0.5 mg, intravenous, Every 2 min PRN, sedation, Starting on Elizabeth 12/23/20 at 0759, Intraprocedure (RAD), If RASS greater than -3, give additional dose(s) of 0.5 mg IV every 2 minutes for a maximum of 5 mg. Do not give if respiratory rate is less than 8 breaths/minute. Given 12/23/2020 9:30 AM CDT 0.5 mg Given 12/23/2020 9:21 AM CDT 0.5 mg NaCl 0.9% infusion 20 mL/hr, intravenous, Once as needed, t o keep vein open, Starting on Elizabeth 12/23/20 at 0759, For 1 dose, Intraprocedure (RAD) naloxone injection 0.2 mg (NARCAN) 0.2 mg, intravenous, Once as needed, res piratory depression, Starting on Elizabeth 12/23/20 at 0759, For 1 dose, Intraprocedure (RAD ), Administer once if patient has a RASS score of -4, -5 and has a respiratory rate less than 8 breaths/minute. documented in this encounter Active and Recently Administered Medications Times are shown in CDT. PRN Medication Order 12/21/2020 12/22/2020 12/23/2020 fentaNYL injection 25 mcg (SUBLIMAZE) 0811 (Given - Provider: Cesar Ybarra RDaviN.)0815 (Given - Provider: Cesar Ybarra R.N.)0822 (Given - Provider: Cesar Ybarra R.N.)0828 (Given - Provider: Cesar Ybarra R.N.)0835 (Given - Pr ovider: Cesar Ybarra R.NDavi) 25 mcg, intravenous, Every 2 min PRN, se dation, or pain before and during sedation procedure, Starting on Elizabeth 12/23/20 at 0759, Intraprocedure (RAD), Administer over 1 minute immediately prior to the proc 0848 (Given - Provider: Cesar Ybarra, R.N.)0852 (Given - Provider: Cesar Ybarra, R.N.)0913 (Given - Provider: Cesar Ybarra, R.N.)0921 (Given - Provider: Cesar Ybarra R.N.)0931 (Given - Provider: Cesar Ybarra R.N.) edure. May repeat every 2 minutes to a m aximum of 200 mcg, until pain score of 3 or less, or until the patient meets the pain comfort goal. Do not give if respiratory rate is less than 8 breaths/minute 0946 (Given - Provider: Cesar Ybarra, R.N.)0950 (Given - Provider: Cesar Ybarra, R.N.) flumazeniL injection 0.2 mg (ROMAZICON) 0.2 mg, intravenous, Once as needed, rev ersal, Starting on Elizabeth 12/23/20 at 0759, For 1 dose, Intraprocedure (RAD), Administer once if patient has a RASS score of -4, -5 and has a respiratory rate less than 8 breaths/minute. heparin (porcine) 1,000 unit/mL injection (COMPLETED) 0827 (Given - Provider: Cesar Ybarra R.N.)0911 (Given - Provider: Cesar Ybarra R.N.)0920 (Given - Provider: Cesar Ybarra R.N.) Code/trauma/sedation medication, Starting on Elizabeth 12/23/20 at 0827 iohexoL 300 mg iodine/mL solution (OMNIPAQUE) (COMPLETED) 0954 (Given - Provider: Jatin Mcconnell M.D.) Code/trauma/sedation medication, Starting on Elizabeth 12/23/20 at 0954 lidocaine-sodium bicarbonate (buffered) 0.9%-8.4% injection (COM PLETED) 0954 (Given - Provider: Jatin Mcconnell M.D.) infiltration, Code/trauma/sedation medication, Starting on Elizabeth at 0954 midazolam (PF) injection 0.5 mg (VERSED) 0.5 mg, intravenous, Once as needed, sed ation, Starting on Elizabeth 12/23/20 at 0759, For 1 dose, Intraprocedure (RAD) midazolam (PF) injection 0.5 mg (VERSED) 0810 (Given - Provider: Cesar Ybarra R.N.)0815 (Given - Provider: Cesar Ybarra R.N.)0822 (Given - Provider: Cesar Ybarra R.N.)0830 (Given - Provider: Cesar Ybarra R.N.)0835 (Given - Provider: Ann UnderwoodNDavi) 0.5 mg, intravenous, Every 2 min PRN, se dation, Starting on Elizabeth 12/23/20 at 0759, Intraprocedure (RAD), If RASS greater than -3, give additional dose(s) of 0.5 mg IV every 2 minutes for a maximum of 5 mg. 0851 (Given - Provider: Cesar Ybarra R.N.)0908 (Given - Provider: Cesar Ybarra R.N.)0921 (Given - Provider: Cesar Ybarra R.N.)0930 (Given - Provider: Cesar Ybarra R.N.)0947 (Given - Provider: Cesar Ybarra R.N.) Do not give if respiratory rate is less than 8 breaths/minute. NaCl 0.9% infusion 20 mL/hr, intravenous, at 20 mL/hr, Once as needed, to keep vein open, Starting on Elizabeth 12/23/20 at 0759, For 1 dose, Intraprocedure (RAD) naloxone injection 0.2 mg (NARCAN) 0.2 mg, intravenous, Once as needed, res piratory depression, Starting on Elizabeth 12/23/20 at 0759, For 1 dose, Intraprocedure (RAD), Administer once if patient has a RASS score of -4, -5 and has a respiratory rate less than 8 breaths/minute. documented in this encounter Additional Health Concerns Assessment Noted Time PHQ-9 Depression Total Score: 4 01/30/2019 12:13 PM CD T documented as of this encounter Care Teams Sail Finisher Hand Relationship Specialty Start Date End Date Elsewhere, Pcp PCP - General 09/17/19 documented as of this encounter
--- OUTSIDE RECORDS SUMMARY | 2022-05-25 13:09 | XMS_ITS | Encounter Summary ---
:1960 Author Organization [facility] Address [address] [place] [id number] Care Team Providers Name Role Phone Elsewhere, Pcp Primary Care Provider Unavailable Reason for Referral Specialty Diagnoses / Procedures Referred By Contact Refer red To Contact Steve Martínez D.O. [facility] [address] [place] [phone] Referral ID Status Reason Start Date Expiration Date Visits Requ ested Visits Authorized Scheduling Instructions Tomorrow 12/17 after IR Reason for Visit Episode Based Medications (Routine) - Authorized Specialty Diagnoses / Procedures Referred By Contact Refer red To Contact Diagnoses Chronic Failure Renal End Stage Renal Disease Dialysis Dependent (HCC) Failure Renal End Stage (HCC) Steve Martínez Jr., Rst Jaspal Gonzalez D.O. 200 [facility] [address] [place] [phone] [place] [phone] Referral ID Status Reason Start Date Expiration Date Visits V isits Requested Authorized [id number] Authorized 12/16/2020 12/16/2021 99 99 Encounter Details Date Type Department Care Team Description 12/17/2020 Hospital Encounter Division of Ab Martínez idney Disease Stage 5 Glomerular Filtration Rate Less Than 15 (HCC) (Primary Dx); Nephrology and Steve Yap Jr., Chronic Fail ure Renal End Stage Renal Disease Dialysis Dependent (HCC); Hypertension, D.O. Failure Renal End Stage (HCC) [facility] in 200 [place], [place] 200 [facility] [address] [place], [place] [phone] (Work) [phone] Social History Tobacco Use Types Packs/Day Years [...] often do you attend roman catholic or restorationism 1 to 4 times per [...] Sign Reading Time Taken Comments Blood Pressure 120/71 12/17/2020 4:47 PM CDT Pulse 80 12/17/2020 4:47 PM CDT Temperature 36.7 ??C (98.1 ??F) 12/17/2020 4:32 PM CDT Respiratory Rate - - Oxygen Saturation - - Inhaled Oxygen Concentration - - Weight - - Height - - Body Mass Index - - documented in this encounter Medications at Time of Discharge Medication Sig Dispensed Refills Start Date End Date hydrocortisone Apply 1 application 0 09/18/2017 (for_HYTONE) 2.5 % topically daily as cream needed (Eczema). amLODIPine (NORVASC) 5 Take 1 tablet (5 [...] chewable with meals. Lunch tablet and dinner. mycophenolate TAKE 1 CAPSULE(250 180 capsule 3 03/05/2020 (CELLCEPT) 250 mg MG) BY MOUTH TWICE capsule DAILY. DO NOT BREAK, CUT, OR OPEN CAPSULES predniSONE (DELTASONE) Take 1 tablet (5 mg 90 tablet 3 01/1902/28/2021 5 mg tablet total) by mouth daily. sevelamer (RENVELA) 800 Take 1 tablet (800 90 tablet 3 03/202001/18/2021 mg tablet mg total) by mouth daily with breakfast. Take with largest meal of the day tacrolimus (PROGRAF) 1 Take 3 capsules (3 540 capsule 3 04/202003/07/2021 mg capsule mg total) by mouth 2 (two) times a day. acetaminophen (TYLENOL) Take 2 tablets 0 05/12/20 19 04/07/2022 500 mg tablet (1,000 mg total) by mouth every 6 (six) hours as needed for pain. cefdinir (OMNICEF) 300 Take 1 capsule (300 [...] (DIALYVITE) mouth every evening. 100-1 mg tablet rosuvastatin (CRESTOR) TAKE 1 TABLET BY 90 tablet 3 020 01/13/2021 5 mg tablet MOUTH DAILY. documented as of this encounter Plan of Treatment Upcoming Encounters Date Type Specialty Care Team Description 06/01/2022 Telemedicine Pharmacy An Nicholas APRN, C.N.P., D.N.P., M.S.N. [address] [place] [phone] (Nicolas wen) 07/31/2022 Lab Laboratory Medicine Tony Rubalcava M. B., Ch.B., M.D. [address] [place] [phone] (Nicolas wen) 07/31/2022 Lab Laboratory Medicine Tony Rubalcava M. B., Ch.B., M.D. [address] [place] [phone] (Nicolas wen) 07/31/2022 Office Visit Transplant Tony Rubalcava M.B., Ch.B., M.D. [address] [place] [phone] (Wo behzad) 07/31/2022 Appointment Radiology Tony Rubalcava M.B., Mukund Otoole [address] [place] [phone] (Wo rk) 08/01/2022 Office Visit Transplant Tony Rubalcava M.B., Mukund Otoole [address] [place] [address] [phone] (Wo rk) 08/01/2022 Clinical Support Transplant Tony Rubalcava M.B., Mukund Otoole [address] [place] [address] [phone] (Wo rk) Scheduled Referrals Name Type Priority Associated Order Schedule Diagnoses Hemodialysis Outpatient Routine Chronic Kidney Once for 1 Transient; Referral Disease Stage 5 Occurrences Glomerular starting 2020 Filtration Rate until 2020 Less Than 15 (HC C) Chronic Failure Renal End Stage Renal Disease Dialysis Dependent (HCC) documented as of this encounter Visit Diagnoses Diagnosis Chronic Kidney Disease Stage 5 Glomerula r Filtration Rate Less Than 15 (HCC) - Primary Chronic Failure Renal End Stage Renal Di sease Dialysis Dependent (HCC) Failure Renal End Stage (HCC) documented in this encounter Administered Medications Inactive Administered Medications - up to 3 most recent administrations Medication Order MAR Action Action Date Dose Rate Site heparin (porcine) 1,000 Given 12/17/2020 1:00 PM CDT 2,000 Units unit/mL injection 2,000 Units 2,000 Units, intravenous, Once in dialysis, On Sun12/17/20 at 1300, For 1 dose, Bolus lidocaine 10 mg/mL (1 %) injection 0.2 mL Given 12/17/2020 1:00 PM CDT 0.2 mL (XYLOCAINE) 0.2 mL, intradermal, As needed, Needle insertion, Starting on Sun12/17/20 at 1253, Per patient preference NaCl 0.9 % bolus 1-1,000 mL New Bag 12/17/2020 4:50 PM CDT 240 mL 600 mL/hr 1-1,000 mL, intravenous, at 1-1,000 mL/hr, Administer over 1 Hours, As needed, for dialysis including prime, rinse back, powder line repairer, flush, or hypotension, Starting on Sun12/17/20 at 1251, For prime and rinse back: Prime to volume of circuit and rinse back. May repeat until line clear as determined by machine or nurse assessment. For Hypotension: Administer 100 mL over 1 minute PRN. If no relief of symptoms within 5 minutes, may repeat 100 mL dose 1 minute apart for a total of 4 doses (400 mL 0.9% NaCL). Notify provider after administering 400 mL of 0.9% NaCL. documented in this encounter Additional Health Concerns Assessment Noted Time PHQ-9 Depression Total Score: 4 01/30/2019 12:13 PM CD T documented as of this encounter Care Teams General Operator Relationship Specialty Start Date End Date Elsewhere, Pcp PCP - General 09/17/19 documented as of this encounter
--- OUTSIDE RECORDS SUMMARY | 2022-05-25 13:09 | XMS_ITS | Encounter Summary ---
:1960 Author Organization [facility] Address [address] [place] [address] Care Team Providers Name Role Phone Elsewhere, Pcp Primary Care Provider Unavailable Encounter Details Date Type Department Care Team Description 12/20/2020 Orders Only Division of Nephrology and Neymar Martínez Hypertension in [place], ., D.O. [place] 200 [facility] 200 [place] [phone] (Wo rk) Social History Tobacco Use Types [...] How often do you attend synagogue or temple 1 to 4 times per [...] Nicholas APRN C.N.P., D.N.P., M.S.N. [address] [place] [phone] (Wo rk) 07/31/2022 Lab Laboratory Medicine Tony Rubalcava M. B., Sydnie, MDebra [address] [place] [phone] (Wo rk) 07/31/2022 Lab Laboratory Medicine Tony Rubalcava M. B., ChBurke, MDebra [address] [place] [address] [phone] (Wo rk) 07/31/2022 Office Visit Transplant Tony Rubalcava M.B., Sydnie, MDebra [address] [place] [address] [phone] (Wo rk) 07/31/2022 Appointment Radiology Tony uRbalcava M.B., Ch.Mukund Richards [address] [place] [address] [phone] (Wo rk) 08/01/2022 Office Visit Transplant Tony Rubalcava M.B., Mukund Otoole [address] [place] [address] [phone] (Wo rk) 08/01/2022 Clinical Support Transplant Tony Rubalcava M.B., Sydnie, Mukund [address] [place] [address] [phone] (Wo rk) documented as of this encounter Visit Diagnoses Not on filedocumented in this encounter Additional Health Concerns Assessment Noted Time PHQ-9 Depression Total Score: 4 01/30/2019 12:13 PM CD T documented as of this encounter Care Teams Applied Statistician Relationship Specialty Start Date End Date Elsewhere, Pcp PCP - General 09/17/19 documented as of this encounter
--- OUTSIDE RECORDS SUMMARY | 2022-05-25 13:09 | XMS_ITS | Encounter Summary ---
:1960 Author Organization [facility] Address [address] [place] [address] Care Team Providers Name Role Phone Elsewhere, Pcp Primary Care Provider Unavailable Reason for Referral Outpatient (Routine) - Canceled Specialty Diagnoses / Procedures Referred By Contact Refer red To Contact Radiology Diagnoses Thombosis Arteriovenous Fistula Initial (HCC) Complication Dialysis Fistula Subsequent Steve Martínez Jr.[facility] Procedures IR Dialysis / High Flow Catheter Placement D.O. [address] [place] [address] Referral ID Status Reason Start Date Expiration Date Visits V isits Requested Authorized [id number] Canceled 12/16/2020 12/16/2021 1 1 Reason for Visit Outpatient (Routine) - Closed Specialty Diagnoses / Procedures Referred By Contact Refer red To Contact Radiology Diagnoses Thombosis Arteriovenous Fistula Initial (HCC) Complication Dialysis Fistula Subsequent Steve Martínez Jr. [facility] Procedures IR Dialysis Fistula Venous CAPTAIN/AIRLINE PILOT Right IR Dialysis Fistula Declot Right D.O. [address] [place] [address] Referral ID Status Reason Start Date Expiration Date Visits Requ ested Visits Authorized [id number] Closed 12/16/2020 12/16/2021 1 1 Encounter Details Date Type Department Care Team Description 12/17/2020 Hospital Encounter Department of Josr Martínez Jr., Michelle.O. [address] [place] [phone] Thombosis Arteriovenous Fistula Initial (HCC); Radiology, Jatin De La Fuente M.D. [address] [place] [phone] Complication Dialysis Fistula Subsequent Building, in Cesar Azar M.D., Ph.D. [address] [place] [phone] [place], [place] [address] [place] [phone] Social History Tobacco Use Types [...] How often do you attend quaker or uatsdin 1 to 4 times per [...] Sign Reading Time Taken Comments Blood Pressure 166/92 12/17/2020 11:05 AM CDT Pulse 63 12/17/2020 11:05 AM CDT Temperature 36.7 ??C (98.1 ??F) 12/17/2020 11:05 AM CDT Respiratory Rate 16 12/17/2020 11:05 AM CDT Oxygen Saturation 96% 12/17/2020 11:05 AM CDT Inhaled Oxygen Concentration - - Weight - - Height - - Body Mass Index - - documented in this encounter Discharge Instructions AttachmentsThe following attachments cannot be sent through Care Everywhere. About Your IV Sedation (Turkmen)documented in this encounter Medications at Time of [...] MOUTH DAILY. documented as of this encounter Procedure Notes Cesar Azar M.D., Ph.D. - 12/17/2020 10:14 AM CDT PATIENT DISPOSITION Return to Outpatient Unit for recovery. Discharge patient when discharge criteria met. POST-PROCEDURE DIAGNOSIS Dialysis graft malfunction PROCEDURE PERFORMED AND DESCRIPTION 1. Diagnostic right upper extremity brachial artery to axillary vein graft fistulogram 2. 6 mm balloon plasty from the arterial anastomosis through the stented portion of the axillary vein. 3. 10 mm balloon venoplasty right innominate and SVC 4. Hemostasis with woggle device x 2; may be removed after 30 min PROCEDURE DETAILS See Radiology Report SPECIMENS REMOVED None FINDINGS Partial thrombosed right upper extremity brachial artery to axillary vein graft including the stented portion, widely patent s/p balloon plasty PRIMARY PROCEDURALIST Jayesh Azar COMPLICATIONS None. DRAINS None. IMPLANTS None. ANESTHESIA Moderate Sedation. FLUIDS See MAR ESTIMATED BLOOD LOSS <5ml CURRENT MEDICATIONS No Medication Changes FOLLOW-UP LETTER None. MAY RETURN TO WORK Not applicable PATIENT INSTRUCTIONS For your next scheduled appointment documented in this encounter Plan of Treatment Upcoming Encounters Date Type Specialty Care Team Description 06/01/2022 Telemedicine Pharmacy An Nicholas APRN, C.N.P., D.N.P., M.S.N. [address] [place] [phone] (Nicolas wen) 07/31/2022 Lab Laboratory Medicine Tony Rubalcava M. B., Sydnie, Shashi. [address] [place] [phone] (Nicolas wen) 07/31/2022 Lab Laboratory Medicine Tony Rubalcava M. B., Sydnie, Mukund [address] [place] [phone] (Nicolas wen) 07/31/2022 Office Visit Transplant Tony Rubalcava M.B., Sydnie, MDebra [address] [place] [phone] (Nicolas wen) 07/31/2022 Appointment Radiology Tony Rubalcava M.B., ChBurke, MDebra [address] [place] [phone] (Nicolas wen) 08/01/2022 Office Visit Transplant Tony Rubalcava M.B., Sydnie, MDebra [address] [place] [phone] (Nicolas wen) 08/01/2022 Clinical Support Transplant GiniTony M.B., Shashi Otoole. [address] [place] [phone] (Wo rk) Scheduled Orders Name Type Priority Associated Diagnoses Order S chedule IR Dialysis / High Imaging RAD - Routine (most Thombosis On ce for 1 Flow Catheter inpatients and all Arteriovenous Fistula Occurrences Placement outpatients) Initial (HCC) starting 12/17/2020 Complication Dialysis until 12/17/2020 Fistula Subsequent documented as of this encounter Procedures Procedure Name Priority Date/Time Associated Diagnosis Comme nts IR DIALYSIS RAD - Routine 12/17/2020 10:29 Thombosis Results fo r this FISTULA VENOUS (most inpatients AM CDT Arteriovenous procedur e are in CAPTAIN/AIRLINE PILOT RIGHT and all Fistula Initial the results outpatients) ([facility]) section. Complication Dialysis Fistula Subsequent documented in this encounter Results IR Dialysis Fistula Venous CAPTAIN/AIRLINE PILOT Right (12/17/2020 10:29 AM CDT) Anatomical Region Laterality Modality Body, Vascular Interventional RST LOS, Vascular Right X-Ray Angiography Interventional ARZ LOS, Vascular Interventional FLA LOS Specimen (Source) Anatomical Collection Method Collection Time Re ceived Time Location / / Volume Laterality 12/17/2020 10:34 AM CDT Impressions 12/17/2020 12:48 PM CDT 1. Nonocclusive thrombus throughout the right brachial artery to axillary vein graft including the stented venous anast omosis, treated with 6 mm balloon angioplasty with excellent venographic r esult. Palpable thrill at end of the procedure. 2. Mild narrowing at the right innominat e and SVC. 10 mm balloon angioplasty. EP Narrative 12/17/2020 12:48 PM CDT EXAM: IR DIALYSIS FISTULA VENOUS CAPTAIN/AIRLINE PILOT RIGHT CLINICAL HISTORY: 60-year-old female wit h right upper extremity brachial artery to axillary vein dialysis graft. Patient underwent fistula declot and stenting of the venous anastomosis on 12/15/2020. Patient subsequently lost thrill at the graft and presents for repeat dialysis g raft evaluation. TECHNIQUE: Patient placed supine on fluo roscopy table. Right upper extremity prepped and draped in sterile fashion. 1 percent lidocaine used for local anesthesia. Initial ultrasound evaluatio n demonstrated patent arterial anastomosis with expansile, non-occlusiv e clot in the upper portion of the graft. No palpable thrill. Under ultraso und guidance, the graft was accessed in antegrade fashion just above the arteria l anastomosis with a micropuncture needle. A 0.018 inch wire was advanced a nd needle exchanged for micropuncture sheath. Fistulogram performed which demo nstrated nonocclusive clot throughout the mid and upper portions of the graft including the stented portion at the venous anastomosis. A Glidewire was adva nced centrally and micropuncture sheath exchanged for a 6 [place] vascular sheath . The patient was systemically heparinized. Next 6 mm balloon angioplas ty was performed throughout the entire dialysis graft including the stented por tion. Follow-up fistulogram demonstrated widely patent graft with brisk antegrade flow through the stent into the axillary outflow vein. Next a micropunct ure needle was used to access the graft in a retrograde fashion. Glidewire advan arin into the artery followed by placement of a 6 [place] vascular sheath. Kumpe catheter advanced into the brachial artery and fistulogram performe d. This demonstrated mild narrowing at the brachial artery anastomosis. Anastom osis gently dilated with a 6 mm balloon. Follow-up fistulogram demonstrated widel y patent arterial anastomosis. Finally central venogram performed which demonst rated areas of mild narrowing in the right innominate vein and SVC. Venoplast y performed with a 10 mm balloon. Follow-up venogram demonstrated widely p atent central veins with brisk flow of contrast into the right atrium. Both she aths were removed. Hemostasis obtained with woggle devices. Sterile dressing ap plied. No immediate complication. PREPROCEDURE: Patient seen, evaluated, [...] procedure. The total intra-procedural sedation time was: 56 m inutes. Estimated blood loss: minimal.. Procedure Note Jatin Mcconnell M.D. - 12/17/2020Fo rmatting of this note might be different from the original. EXAM: IR DIALYSIS FISTULA VENOUS CAPTAIN/AIRLINE PILOT RIG HT CLINICAL HISTORY: 60-year-old female wit h right upper extremity brachial artery to axillary vein dialysis graft. Patient underwent fistula declot and stenting of the venous anastomosis on 12/15/2020. Patient subsequently lost thrill at the graft and presents for repeat dialysis g raft evaluation. TECHNIQUE: Patient placed supine on fluo roscopy table. Right upper extremity prepped and draped in sterile fashion. 1 percent lidocaine used for local anesthesia. Initial ultrasound evaluatio n demonstrated patent arterial anastomosis with expansile, non-occlusiv e clot in the upper portion of the graft. No palpable thrill. Under ultraso und guidance, the graft was accessed in antegrade fashion just above the arteria l anastomosis with a micropuncture needle. A 0.018 inch wire was advanced a nd needle exchanged for micropuncture sheath. Fistulogram performed which demo nstrated nonocclusive clot throughout the mid and upper portions of the graft including the stented portion at the venous anastomosis. A Glidewire was adva nced centrally and micropuncture sheath exchanged for a 6 [place] vascular sheath . The patient was systemically heparinized. Next 6 mm balloon angioplas ty was performed throughout the entire dialysis graft including the stented por tion. Follow-up fistulogram demonstrated widely patent graft with brisk antegrade flow through the stent into the axillary outflow vein. Next a micropunct ure needle was used to access the graft in a retrograde fashion. Glidewire advan arin into the artery followed by placement of a 6 [place] vascular sheath. Kumpe catheter advanced into the brachial artery and fistulogram performe d. This demonstrated mild narrowing at the brachial artery anastomosis. Anastom osis gently dilated with a 6 mm balloon. Follow-up fistulogram demonstrated widel y patent arterial anastomosis. Finally central venogram performed which demonst rated areas of mild narrowing in the right innominate vein and SVC. Venoplast y performed with a 10 mm balloon. Follow-up venogram demonstrated widely p atent central veins with brisk flow of contrast into the right atrium. Both she aths were removed. Hemostasis obtained with woggle devices. Sterile dressing ap plied. No immediate complication. PREPROCEDURE: Patient seen, evaluated, [...] procedure. The total intra-procedural sedation time was: 56 m inutes. Estimated blood loss: minimal.. IMPRESSION: 1. Nonocclusive thrombus throughout the right brachial artery to axillary vein graft including the stented venous anast omosis, treated with 6 mm balloon angioplasty with excellent venographic r esult. Palpable thrill at end of the procedure. 2. Mild narrowing at the right innominat e and SVC. 10 mm balloon angioplasty. EP Whitney Rasheed Jr.[facility] IR PROCEDURES documented in this encounter Visit Diagnoses Diagnosis Thombosis Arteriovenous Fistula Initial (HCC) Complication Dialysis Fistula Subsequent documented in this encounter Administered Medications Inactive Administered Medications - up to 3 most recent administrations Medication Order MAR Action Action Date Dose Rate Site fentaNYL injection 25 mcg Given 12/17/2020 9:56 AM CDT 50 mcg (SUBLIMAZE) 25 mcg, intravenous, Every 2 min PRN, sedation, or pain before and during sedation procedure, Starting on Sun12/17/20 at 0801, Intraprocedure (RAD), Administer over 1 minute immediately prior to the procedure. May repeat every 2 minutes to a maximum of 200 mcg, until pain score of 3 or less, or until the patient meets the pain comfort goal. Do not give if respiratory rate is less than 8 breaths/minute Given 12/17/2020 9:06 AM CDT 25 mcg Given 12/17/2020 9:04 AM CDT 25 mcg flumazeniL injection 0.2 mg (ROMAZICON) 0.2 mg, intravenous, Once as needed, rev ersal, Starting on Sun12/17/20 at 0801, For 1 dose, Intraprocedure (RAD), Administer once if patient has a RASS score of -4, -5 and has a respiratory rate less than 8 breaths/minute. heparin (porcine) 1,000 unit/mL injectio n Given 12/17/2020 9:25 AM 5,000 Units Code/trauma/sedation medication, Starting CDT on Sun12/17/20 at 0925 iohexoL 300 mg iodine/mL solution (OMNIP AQUE) Given 12/17/2020 10:10 AM CDT 70 mL Code/trauma/sedation medication, Starting on Sun12/17/20 at 1010 lactated ringers 20 mL/hr, intravenous, Once as needed, t o keep vein open, Starting on Sun12/17/20 at 0801, For 1 dose, Intraprocedure (RAD) lidocaine-sodium bicarbonate (buffered) Given 12/17/2020 10:10 A M CDT 5 mL 0.9%-8.4% injection infiltration, Code/trauma/sedation medication, Starting on Sun12/17/20 at 1010 midazolam (PF) injection 0.25 mg (VERSED ) 0.25 mg, intravenous, Every 2 min PRN, s edation, RASS -2, Starting on Sun12/17/20 at 0801, Intraprocedure (RAD), May repea t every 2 minutes to a maximum of 5 mg. Do not give if respiratory rate is less than 8 breaths/mi nute. midazolam (PF) injection 0.5 mg (VERSED) 0.5 mg, intravenous, Once as needed, sed ation, Starting on Sun12/17/20 at 0801, For 1 dose, Intraprocedure (RAD) midazolam (PF) injection 0.5 mg (VERSED) Given 12/17/2020 9:56 AM CDT 0.5 mg 0.5 mg, intravenous, Every 2 min PRN, sedation, RASS -1, Starting on Sun12/17/20 at 0801, Intraprocedure (RAD), May repeat every 2 minutes for a maximum of 5 mg. Do not give if respiratory rate is less than 8 breaths/minute. Given 12/17/2020 9:06 AM CDT 0.5 mg Given 12/17/2020 9:04 AM CDT 0.5 mg midazolam (PF) injection 1 mg (VERSED) 1 mg, intravenous, Every 2 min PRN, dustin tion, RASS 0, Starting on Sun12/17/20 at 0801, Intraprocedure (RAD), May repeat e very 2 minutes for a maximum of 5 mg. Do not give if respiratory rate is less than 8 breaths/mi nute. naloxone injection 0.2 mg (NARCAN) 0.2 mg, intravenous, Once as needed, respiratory depre ssion, Starting on Sun12/17/20 at 0801, For 1 dose, Intraproced ure (RAD), Administer once if patient has a RASS score of -4, -5 and has a respiratory rate less t simpson 8 breaths/minute. documented in this encounter Active and Recently Administered Medications Times are shown in CDT. Scheduled Medication Order 12/15/2020 12/16/2020 12/17/2020 alteplase 10 mg in NaCl 0.9% IVPB (ACTIVASE) 0800 (Due) 10 mg, intravenous, Once, On Sun12/17/20 at 0800, For 1 dose, Intraprocedure (RAD) PRN Medication Order 12/15/2020 12/16/2020 12/17/2020 fentaNYL injection 25 mcg (SUBLIMAZE) 0900 (Given - Provider: Vaibhav Saucedo R.N.)0902 (Given - Provider: Vaibhav Saucedo R.N.)0904 (Given - Provider: Vaibhav Saucedo R.N.)0906 (Given - Provider: Vaibhav Saucedo R.N.)0956 (Given - Provid er: Debora Rand R.N.) 25 mcg, intravenous, Every 2 min PRN, se dation, or pain before and during sedation procedure, Starting on Sun12/17/20 at 0801, Intraprocedure (RAD), Administer over 1 minute immediately prior to the pro cedure. May repeat every 2 minutes to a maximum of 200 mcg, until pain score of 3 or less, or until the patient meets the pain comfort goal. Do not give if respiratory rate is less than 8 breaths/minute flumazeniL injection 0.2 mg (ROMAZICON) 0.2 mg, intravenous, Once as needed, rev ersal, Starting on Sun12/17/20 at 0801, For 1 dose, Intraprocedure (RAD), Administer once if patient has a RASS score of -4, -5 and has a respiratory rate less than 8 breaths/minute. heparin (porcine) 1,000 unit/mL injection (COMPLETED) 0925 (Given - Provider: Vaibhav Saucedo R.N.) Code/trauma/sedation medication, Starting on Sun12/17/20 at 0925 iohexoL 300 mg iodine/mL solution (OMNIPAQUE) (COMPLETED) 1010 (Given - Provider: Cesar Azar M.D., Ph.D.) Code/trauma/sedation medication, Starting on Sun12/17/20 at 1010 lactated ringers 20 mL/hr, intravenous, at 20 mL/hr, Once as needed, to keep vein open, Starting on Sun12/17/20 at 0801, For 1 dose, Intraprocedure (RAD) lidocaine-sodium bicarbonate (buffered) 0.9%-8.4% injection (COM PLETED) 1010 (Given - Provider: Cesar Azar M.D., Ph.D.) infiltration, Code/trauma/sedation medication, Starting on 12/17/20 at 1010 midazolam (PF) injection 0.25 mg (VERSED) 0.25 mg, intravenous, Every 2 min PRN, s edation, RASS -2, Starting on Sun12/17/20 at 0801, Intraprocedure (RAD), May repeat every 2 minutes to a maximum of 5 mg. Do not give if respiratory rate is less than 8 breaths/minute. midazolam (PF) injection 0.5 mg (VERSED) 0.5 mg, intravenous, Once as needed, sed ation, Starting on Sun12/17/20 at 0801, For 1 dose, Intraprocedure (RAD) midazolam (PF) injection 0.5 mg (VERSED) 0900 (Given - Provider: Vaibhav Saucedo R.N.)0902 (Given - Provider: Vaibhav Saucedo R.N.)0904 (Given - Provider: Vaibhav Saucedo R.N.)0906 (Given - Provider: Vaibhav Saucedo R.N.)0956 (Given - Provider: Debora Rand R.N.) 0.5 mg, intravenous, Every 2 min PRN, se dation, RASS -1, Starting on Sun12/17/20 at 0801, Intraprocedure (RAD), May repeat every 2 minutes for a maximum of 5 mg. Do not give if respiratory rate is less than 8 breaths/minute. midazolam (PF) injection 1 mg (VERSED) 1 mg, intravenous, Every 2 min PRN, dustin tion, RASS 0, Starting on Sun12/17/20 at 0801, Intraprocedure (RAD), May repeat every 2 minutes for a maximum of 5 mg. Do not give if respiratory rate is less than 8 breaths/minute. naloxone injection 0.2 mg (NARCAN) 0.2 mg, intravenous, Once as needed, res piratory depression, Starting on Sun12/17/20 at 0801, For 1 dose, Intraprocedure (RAD), Administer once if patient has a RASS score of -4, -5 and has a respiratory rate less than 8 breaths/minute. documented in this encounter Additional Health Concerns Assessment Noted Time PHQ-9 Depression Total Score: 4 01/30/2019 12:13 PM CD T documented as of this encounter Care Teams Patrol Lady Relationship Specialty Start Date End Date Elsewhere, Pcp PCP - General 09/17/19 documented as of this encounter
--- OUTSIDE RECORDS SUMMARY | 2022-05-25 13:09 | XMS_ITS | Encounter Summary ---
:1960 Author Organization [facility] Address [address] [place] [address] Care Team Providers Name Role Phone Elsewhere, Pcp Primary Care Provider Unavailable Encounter Details Date Type Department Care Team Description 12/20/2020 Documentation Division of Nephrology and Josr Martínez Hypertension in [place], ., D.O. [place] 200 [facility] 200 [place] [phone] (Wo rk) Social History Tobacco Use Types [...] How often do you attend quaker or rastafari 1 to 4 times per [...] Progress Notes Steve Martínez Jr., D.O. - 12/20/2020 7:42 AM CDT Care coordination-documentation note: On my way to dialysis rounds today I was called from our dialysis unit in [place] that as she appeared for dialysis today, she was clotted once again. Previously she had been on systemic anticoagulation, this was stopped on the background of some easybruisability and as she had her neurostimulator placed in her right arm. 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 I have placed orders for her to have a dialysis access sorted out today, a line placed if declot is not possible. Additionally I will place her on warfarin anticoagulation will contact the patient. She is NPO. Our team will contact her regards placement of a tunneled dialysis access, verses going ahead with thrombectomy, and I have asked for a dialysis session to take place this evening at the [facility] unit. Orders were placed for 3-1/2 hours with a target weight of 92.5 kg. documented in this encounter Plan of Treatment Upcoming Encounters Date Type Specialty Care Team Description 06/01/2022 Telemedicine Pharmacy An Nicholas APRN, C.N.P., Clement., M.S.N. [address] [place] [phone] (Wo rk) 07/31/2022 Lab Laboratory Medicine Tony Rubalcava M. B., Sydnie, Mukund [address] [place] [phone] (Wo rk) 07/31/2022 Lab Laboratory Medicine Tony Rubalcava M. B., Sydnie, Mukund [address] [place] [phone] (Wo rk) 07/31/2022 Office Visit Transplant Tony Rubalcava M.B., Sydnie, Mukund [address] [place] [phone] (Wo rk) 07/31/2022 Appointment Radiology Tony Rubalcava M.B., Sydnie, Mukund [address] [place] [phone] ( rk) 08/01/2022 Office Visit Transplant Tony Rubalcava M.B., Sydnie, Mukund [address] [place] [phone] (Wo rk) 08/01/2022 Clinical Support Transplant Tony Rubalcava M.B., Sydnie, Mukund [address] [place] [phone] ( rk) documented as of this encounter Visit Diagnoses Not on filedocumented in this encounter Additional Health Concerns Assessment Noted Time PHQ-9 Depression Total Score: 4 01/30/2019 12:13 PM CD T documented as of this encounter Care Teams Showroom Salesperson Relationship Specialty Start Date End Date Elsewhere, Pcp PCP - General 09/17/19 documented as of this encounter
--- OUTSIDE RECORDS SUMMARY | 2022-05-25 13:09 | XMS_ITS | Encounter Summary ---
:1960 Author Organization [facility] Address [address] [place] [phone] Care Team Providers Name Role Phone Elsewhere, Pcp Primary Care Provider Unavailable Reason for Referral Specialty Diagnoses / Procedures Referred By Contact Refer red To Contact Steve Martínez D.O. [facility] [address] [place] [phone] Referral ID Status Reason Start Date Expiration Date Visits Requ ested Visits Authorized Scheduling Instructions Tomorrow 12/17 after IR Encounter Details Date Type Department Care Team Description 12/16/2020 Orders Only Division of Nephrology Steve Martínez Kidney Disease Stage 5 Glomerular Filtration Rate Less Than 15 (HCC) (Primary Dx); and Hypertension in Fracisco Garcia D.O. Chronic Failure Renal End Stage Renal Di sease Dialysis Dependent (HCC) [place], [place] [address] [facility] [address] [place] [phone] Social History Tobacco Use Types Packs/Day Years [...] Nicholas APRN, C.N.P., D.N.P., M.S.N. [address] [place] [phone] (Nicolas wen) 07/31/2022 Lab Laboratory Medicine Tony Rubalcava M. B., Ch.B., M.D. [address] [place] [phone] (Nicolas wen) 07/31/2022 Lab Laboratory Medicine Tony Rubalcava M. B., Sydnie, Mukund [address] [place] [phone] (Wo rk) 07/31/2022 Office Visit Transplant Tony Rubalcava M.B., Sydnie, Mukund [address] [place] [address] [phone] (Wo rk) 07/31/2022 Appointment Radiology Tony Rubalcava M.B., Sydnie, Mukund [address] [place] [phone] (Wo rk) 08/01/2022 Office Visit Transplant Tony Rubalcava M.B., Sydnie, Mukund [address] [place] [phone] (Wo rk) 08/01/2022 Clinical Support Transplant Tony Rubalcava M.B., Sydnie, Mukund [address] [place] [phone] (Wo rk) Scheduled Referrals Name Type Priority Associated Order Schedule Diagnoses Hemodialysis Outpatient Routine Chronic Kidney 1 Occurrences Transient; Referral Disease Stage 5 starting Glomerular until 4 Filtration Rate Less Than 15 (HC C) Chronic Failure [...] documented as of this encounter Care Teams Visual Coordinator Relationship Specialty Start Date End Date Elsewhere, Pcp PCP - General 09/17/19 documented as of this encounter
--- OUTSIDE RECORDS SUMMARY | 2022-05-25 13:09 | XMS_ITS | Encounter Summary ---
:1960 Author Organization [facility] Address [address] [place] [address] Care Team Providers Name Role Phone Elsewhere, Pcp Primary Care Provider Unavailable Reason for Visit Reason Onset Date Comments Complex Care Coordination 12/17/2020November Billing Encounter Details Date Type Department Care Team Description 12/17/2020 Remote Monitoring Remote Patient Cecilia Fuentes Complex Care Monitoring [address] [place] [address] Coordination (November [facility] [address] [place], [place] Billing ) 200 [facility] [address] [place], [place] [phone] (Work) Social History Tobacco Use Types Packs/Day Years [...] How often do you attend jewish or zoroastrianism 1 to 4 times per [...] An Nicholas APRN, C.N.P., D.N.P., M.S.N. [address] [place] [phone] (Wo rk) 07/31/2022 Lab Laboratory Medicine Tony Rubalcava M. B., ChBurke, MDebra [address] [place] [phone] (Wo rk) 07/31/2022 Lab Laboratory Medicine Tony Rubalcava M. B., ChDaviBDavi, MDebra [address] [place] [address] [phone] (Wo rk) 07/31/2022 Office Visit Transplant Tony Rubalcava M.B., ChBurke, MDebra [address] [place] [address] [phone] (Wo rk) 07/31/2022 Appointment Radiology Tony Rubalcava M.B., ChBurke, MDebra [address] [place] [phone] (Wo rk) 08/01/2022 Office Visit Transplant Tony Rubalcava M.B., Mukund Otoole [address] [place] [address] [phone] (Wo rk) 08/01/2022 Clinical Support Transplant Tony Rubalcava M.B., Mukund Otoole [address] [place] [address] [phone] (Wo rk) documented as of this encounter Visit Diagnoses Diagnosis COVID-19 Infection documented in this encounter Additional Health Concerns Assessment Noted Time PHQ-9 Depression Total Score: 4 01/30/2019 12:13 PM CD T documented as of this encounter Care Teams Marketing Communications Specialist Relationship Specialty Start Date End Date Elsewhere, Pcp PCP - General 09/17/19 documented as of this encounter
--- OUTSIDE RECORDS SUMMARY | 2022-05-25 13:09 | XMS_ITS | Encounter Summary ---
:[address] [facility] Address [address] [place] [address] Care Team Providers Name Role Phone Elsewhere, Pcp Primary Care Provider Unavailable Reason for Visit Outpatient (Routine) - Closed Specialty Diagnoses / Procedures Referred By Contact Refer red To Contact Radiology Diagnoses Chronic Kidney Disease Stage 5 Glomerular Filtration Rate Less Than 15 (HCC) Failure Renal End Stage (HCC) Thombosis Arteriovenous Fistula Initial (HCC) Steve Martínez Jr., [place] Procedures IR Dialysis / High Flow Catheter Placement D.O. [address] [place] [phone] Referral ID Status Reason Start Date Expiration Date Visits Requ ested Visits Authorized [id number] Closed 12/20/2020 12/20/2021 1 1 Encounter Details Date Type Department Care Team Description 12/20/2020 Hospital Encounter Department of Radiology Steve Young Jr., D.O. [address] [place] [phone] in [facility] Jatin Stanton M.D. [address] [place] [phone] [address] [place] [address] Allan Basurto M.D. [address] [place] [phone] [place] [address] Social History Tobacco Use Types Packs/Day Years [...] How often do you attend jew or buddhism 1 to 4 times per [...] Sign Reading Time Taken Comments Blood Pressure 179/87 12/20/2020 3:25 PM CDT Pulse 71 12/20/2020 3:03 PM CDT Temperature - - Respiratory Rate 13 12/20/2020 2:55 PM CDT Oxygen Saturation 97% 12/20/2020 3:25 PM CDT Inhaled Oxygen Concentration - - Weight 96.8 kg (213 lb 6.5 oz) 12/20/2020 2:30 PM CDT Height - - Body Mass Index 35.51 10/14/2020 8:11 AM CONTACT CENTER TEAM LEAD documented in this encounter Discharge Instructions AttachmentsThe following attachments cannot be sent through Care Everywhere. About Your IV Sedation (Norwegian)Your High-Flow Central Venous Catheter (Norwegian) documented in this encounter Medications at Time [...] mouth 2 (two) times a day. acetaminophen Take 2 tablets (1,000 0 05/12/2019 [...] 12/29/2019 01/13/2021 (CRESTOR) 5 mg tablet DAILY. warfarin (Coumadin) 2 Take 3 tablets each 270 tablet 3 12/2012/22/2020 mg tablet day for 3 days and return to Anticoagulation Clinic for INR testing. documented as of this encounter Plan of Treatment Upcoming Encounters Date Type Specialty Care Team Description 06/01/2022 Telemedicine Pharmacy An Nicholas APRN C.N.P., D.N.P., M.S.N. [address] [place] [address] [phone] (Nicolas wen) 07/31/2022 Lab Laboratory Medicine Tony Rubalcava M. B., Ch.B., M.D. [address] [place] [phone] ( behzad) 07/31/2022 Lab Laboratory Medicine Tony Rubalcava M. B., Ch.B., M.D. [address] [place] [phone] ( behzad) 07/31/2022 Office Visit Transplant Tony Rubalcava M.B., Ch.B., M.D. [address] [place] [address] [phone] ( rk) 07/31/2022 Appointment Radiology Tony Rubalcava M.B., Mukund Otoole [address] [place] [address] [phone] (Wo rk) 08/01/2022 Office Visit Transplant Tony Rubalcava M.B., Mukund Otoole [address] [place] [address] [phone] (Wo rk) 08/01/2022 Clinical Support Transplant Tony Rubalcava M.B., Mukund Otoole [address] [place] [address] [phone] (Wo rk) documented as of this encounter Procedures Procedure Name Priority Date/Time Associated Diagnosis Comme nts IR DIALYSIS / RAD - Routine 12/20/2020 3:28 Chronic Kidney Results for this HIGH FLOW (most inpatients PM CDT Disease Stage 5 procedur e are in CATHETER and all Glomerular the results PLACEMENT outpatients) Filtration Rate Less section . Than 15 (HCC) Failure Renal End Stage (HCC) Thombosis Arteriovenous Fistula Initial (HCC) documented in this encounter Visit Diagnoses Not on filedocumented in this encounter Administered Medications Inactive Administered Medications - up to 3 most recent administrations Medication Order MAR Action Action Date Dose Rate Site fentaNYL injection 25 mcg Given 12/20/2020 3:15 PM CDT 25 mcg (SUBLIMAZE) 25 mcg, intravenous, Every 2 min PRN, moderate pain or score 4-6 of 10, severe pain or score 7-10 of 10, Administer over 1 minute immediately prior to the procedure. May repeat every 2 minutes to a maximum of 200 mcg, until pain score of 3 or less, or until the patient meets the pain comfort goal. Do not give if respiratory rate is less than 8 breaths/minute, Starting on Sun12/20/20 at 1459, Intraprocedure (CV) Given 12/20/2020 3:09 PM CDT 25 mcg Given 12/20/2020 2:59 PM CDT 25 mcg lidocaine-sodium bicarbonate (buffered) Given 12/20/2020 3:22 PM CDT 10 mL 0.9%-8.4% injection infiltration, Code/trauma/sedation medication, Starting on Sun12/20/20 at 1522 midazolam (PF) injection 0.5 mg (VERSED) Given 12/20/2020 3:09 PM CDT 0.5 mg 0.5 mg, intravenous, Every 2 min PRN, sedation, RASS -1, Starting on Sun12/20/20 at 1459, Intraprocedure (CV), May repeat every 2 minutes for a maximum of 5 mg. Do not give if respiratory rate is less than 8 breaths/minute. Given 12/20/2020 3:00 PM CDT 0.5 mg sodium citrate injection Given 12/20/2020 3:20 PM CDT 6 mL Code/trauma/sedation medication, Starting on Sun12/20/20 at 1520 documented in this encounter Additional Health Concerns Assessment Noted Time PHQ-9 Depression Total Score: 4 01/30/2019 12:13 PM CD T documented as of this encounter Care Teams Hat And Cap Opener Relationship Specialty Start Date End Date Elsewhere, Pcp PCP - General 09/17/19 documented as of this encounter
--- OUTSIDE RECORDS SUMMARY | 2022-05-25 13:09 | XMS_ITS | Encounter Summary ---
:1960 Author Organization [facility] Address [address] [place] [address] Care Team Providers Name Role Phone Elsewhere, Pcp Primary Care Provider Unavailable Encounter Details Date Type Department Care Team Description 12/16/2020 Documentation Division of Nephrology and Josr Martínez Hypertension in [place], ., D.O. [place] 200 [facility] 200 [place] [phone] (Wo rk) Social History Tobacco Use Types [...] How often do you attend worship or christianity 1 to 4 times per [...] Progress Notes Steve Martínez Jr., D.O. - 12/16/2020 9:58 AM CDT Care coordination: Received a phone call from the patient today before her planned ureteral stent removal that she was concerned her graft was clotted again. Reportedly she was concerned about this yesterday in Interventional Radiology, the graft was reassessed late in the afternoon and thought to be patent. She is currently at the [facility] facility at [place], and the team there has assessed her right graftand found no audible bruit. I have placed orders for interventional radiology slot as soon as possible, and also for possible placement of a tunneled dialysis catheter such that we have life-sustaining dialysis access for her. documented in this encounter Plan of Treatment Upcoming Encounters Date Type Specialty Care Team Description 06/01/2022 Telemedicine Pharmacy An Nicholas APRN, C.N.P., D.N.P., M.S.N. [address] [place], [place] [phone] (Wo rk) 07/31/2022 Lab Laboratory Medicine Tony Rubalcava M. B., Sydnie, M.Whitney [address] [place] [phone] (Wo rk) 07/31/2022 Lab Laboratory Medicine Tony Rubalcava M. B., Sydnie, Mukund [address] [place] [address] [phone] (Wo rk) 07/31/2022 Office Visit Transplant Tony Rubalcava M.B., Sydnie, Mukund [address] [place] [address] [phone] (Wo rk) 07/31/2022 Appointment Radiology Tony Rubalcava M.B., Sydnie, Mukund [address] [place] [address] [phone] (Wo rk) 08/01/2022 Office Visit Transplant Tony Rubalcava M.B., Sydnie, MDebra [address] [place] [address] [phone] (Wo rk) 08/01/2022 Clinical Support Transplant Tony Rubalcava M.B., Sydnie, MDebra [address] [place] [address] [phone] (Wo rk) documented as of this encounter Visit Diagnoses Not on filedocumented in this encounter Additional Health Concerns Assessment Noted Time PHQ-9 Depression Total Score: 4 01/30/2019 12:13 PM CD T documented as of this encounter Care Teams Nerve Specialist Relationship Specialty Start Date End Date Elsewhere, Pcp PCP - General 09/17/19 documented as of this encounter
--- OUTSIDE RECORDS SUMMARY | 2022-05-25 13:09 | XMS_ITS | Encounter Summary ---
:1960 Author Organization [facility] Address 200 [place] [address] Care Team Providers Name Role Phone Elsewhere, Pcp Primary Care Provider Unavailable Reason for Referral Outpatient (Routine) - Closed Specialty Diagnoses / Procedures Referred By Contact Refer red To Contact Radiology Diagnoses Chronic Kidney Disease Stage 5 Glomerular Filtration Rate Less Than 15 (HCC) Failure Renal End Stage (HCC) Thombosis Arteriovenous Fistula Initial (HCC) Steve Martínez Jr., Procedures IR Dialysis Fistula Stent Right IR Dialysis Fistula Declot Right D.O. 200 [place] [address] Referral ID Status Reason Start Date Expiration Date Visits Requ ested Visits Authorized [id number] Closed 12/20/2020 12/20/2021 1 1 Specialty Diagnoses / Procedures Referred By Contact Refer red To Contact Steve Martínez D.O. [place] 200 [place] [address] Referral ID Status Reason Start Date Expiration Date Visits Requ ested Visits Authorized Scheduling Instructions Today after IR Outpatient (Routine) - Closed Specialty Diagnoses / Procedures Referred By Contact Alva chaparro To Contact Radiology Diagnoses Chronic Kidney Disease Stage 5 Glomerular Filtration Rate Less Than 15 (HCC) Failure Renal End Stage (HCC) Thombosis Arteriovenous Fistula Initial (HCC) Steve Martínez Jr., Anival Freeman Procedures IR Dialysis / High Flow Catheter Placement D.ODavi [address] [place] [address] Referral ID Status Reason Start Date Expiration Date Visits Requ ested Visits Authorized [id number] Closed 12/20/2020 12/20/2021 1 1 Encounter Details Date Type Department Care Team Description 12/20/2020 Orders Only Division of Nephrology Steve Martínez Kidney Disease Stage 5 Glomerular Filtration Rate Less Than 15 (HCC) (Primary Dx); and Hypertension in [place] Garcia D.O. Failure Renal End Stage (HCC); [place], [place] [address] [facility] Thombosis Arteriovenous Fistula Initial (HCC) [address] [place] [phone] Social History Tobacco Use Types Packs/Day Years [...] How often do you attend adventism or restoration 1 to 4 times per year 12/23/2021 [...] Nicholas APRN C.N.P., D.N.P., M.S.N. [address] [place] [phone] (Wo rk) 07/31/2022 Lab Laboratory Medicine Tony Rubalcava M. B., Sydnie, MDebra [address] [place] [phone] (Wo rk) 07/31/2022 Lab Laboratory Medicine Tony Rubalcava M. B., ChBurke, MDebra [address] [place] [phone] (Wo rk) 07/31/2022 Office Visit Transplant Tony Rubalcava M.B., Sydnie, MDebra [address] [place] [phone] (Wo rk) 07/31/2022 Appointment Radiology Tony Rubalcava M.B., Sydnie, MDebra [address] [place] [phone] (Wo rk) 08/01/2022 Office Visit Transplant Tony Rubalcava M.B., Mukund Otoole [address] [place], [place] [phone] (Wo rk) 08/01/2022 Clinical Support Transplant Tony Rubalcava M.B., Mukund Otoole [address] [place], [place] [phone] (Wo rk) Scheduled Referrals Name Type Priority Associated Diagnoses Order S chedule Hemodialysis Outpatient Routine Chronic Kidney Ordered: Transient; Referral Disease Stage 5 12/20/2020 Glomerular Filtration Rate Less Than 15 (HCC) Failure Renal End Stage (HCC) Thombosis Arteriovenous Fistula Initial (HCC) documented as of this encounter Results IR Dialysis Fistula Stent [...] The micropuncture sheath was exchanged for a 6-Faroese vascular sh [facility]. The patient was systemically heparinized. The graft, [...] The micropuncture sheath was exchanged for a 6-Faroese vascular sh eat. The patient was systemically heparinized. The graft, [...] pursestring sutures. Brody Rasheed Jr. IR PROCEDURES IR Dialysis / High Flow Catheter Placement (12/20/2020 3:28 PM CDT) Anatomical Region Laterality Modality Body, Vascular Interventional RST LOS, Vascular N/A X-Ray Angiography Interventional ARZ LOS, Vascular Interventional FLA LOS Specimen (Source) Anatomical Collection Method Collection Time Re ceived Time Location / / Volume Laterality 12/20/2020 3:55 PM CDT Impressions 12/21/2020 9:59 AM CDT Placement of left internal jugular vein 28 cm tunneled Palindrome dialysis catheter. Catheter is ready for use. 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 Decisi on made to place tunneled hemodialysis catheter, with possible declot in the ne ar future after patient reaches therapeutic INR on Coumadin. TECHNIQUE: Patient placed supine on the angiography table. Left neck and chest were prepped in the normal sterile fashi on. Using 1% lidocaine for local anesthesia, and using direct ultrasound guidance, access was gained into the patent left internal jugular vein, and a copy of this access was saved to the permanent record. A guidewire was advanc ed into the inferior vena cava. Tract was serially dilated and a peel-away she ath was advanced over the wire. Subcutaneous tunnel was then created inf erior to the clavicle with 1% lidocaine. Small skin nils was made and the cathete r was advanced through the tunnel and subsequently through the peel-away sheat h such that the tip terminated in the mid right atrium. Both lumens flushed an d aspirated well. Catheter was secured to the skin with 2-0 Prolene suture. Lef t neck venotomy was closed with 4-0 Vicryl. Sterile dressings were applied. Patient tolerated the procedure well. No immediate complications. For placement of this central venous acc ess, we followed catheter checklist and a standardized protocol. The position of the catheter tip was confirmed under fluoroscopic guidance, and a final image of the catheter position was obtained. Ready for use. ?? PREPROCEDURE: Patient seen, evaluated, h istory reviewed, [...] procedure. The total intra-procedural sedation time was: 24 m inutes. Procedure Note Jatin Mcconnell M.D. - 12/21/2020Fo rmatting of this note might be different from the original. 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 Decisi on made to place tunneled hemodialysis catheter, with possible declot in the ne ar future after patient reaches therapeutic INR on Coumadin. TECHNIQUE: Patient placed supine on the angiography table. Left neck and chest were prepped in the normal sterile fashi on. Using 1% lidocaine for local anesthesia, and using direct ultrasound guidance, access was gained into the patent left internal jugular vein, and a copy of this access was saved to the permanent record. A guidewire was advanc ed into the inferior vena cava. Tract was serially dilated and a peel-away she ath was advanced over the wire. Subcutaneous tunnel was then created inf erior to the clavicle with 1% lidocaine. Small skin nils was made and the cathete r was advanced through the tunnel and subsequently through the peel-away sheat h such that the tip terminated in the mid right atrium. Both lumens flushed an d aspirated well. Catheter was secured to the skin with 2-0 Prolene suture. Lef t neck venotomy was closed with 4-0 Vicryl. Sterile dressings were applied. Patient tolerated the procedure well. No immediate complications. For placement of this central venous acc ess, we followed catheter checklist and a standardized protocol. The position of the catheter tip was confirmed under fluoroscopic guidance, and a final image of the catheter position was obtained. Ready for use. PREPROCEDURE: Patient seen, evaluated, h istory reviewed, [...] procedure. The total intra-procedural sedation time was: 24 m inutes. IMPRESSION: Placement of left internal jugular vein 28 cm tunneled Palindrome dialysis catheter. Catheter is ready for use. EP Steve Martínez Jr., D.ODavi [place] IR PROCEDURES documented in this encounter Visit Diagnoses Diagnosis Chronic Kidney Disease Stage 5 Glomerula r Filtration Rate Less Than 15 (HCC) - Primary Failure Renal End Stage (HCC) Thombosis Arteriovenous Fistula Initial (HCC) Chronic Kidney Disease Stage 5 Glomerula r Filtration Rate Less Than 15 (HCC) Failure Renal End Stage (HCC) Thombosis Arteriovenous Fistula Initial (HCC) documented in this encounter Additional Health Concerns Assessment Noted Time PHQ-9 Depression Total Score: 4 01/30/2019 12:13 PM CD T documented as of this encounter Care Teams District Engineer Relationship Specialty Start Date End Date Elsewhere, Pcp PCP - General 09/17/19 documented as of this encounter
--- OUTSIDE RECORDS SUMMARY | 2022-05-25 13:09 | XMS_ITS | Encounter Summary ---
:1960 Author Organization [facility] Address [address] [place] [address] Care Team Providers Name Role Phone Elsewhere, [...] / High Flow Catheter Placement D.O. 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 [address] [place] [address] Referral ID Status Reason Start Date Expiration Date Visits Requ ested Visits Authorized [id number] Closed 12/20/2020 12/20/2021 1 1 Encounter Details Date Type Department Care Team Description 12/20/2020 Hospital Encounter Department of Josr Martínez Jr., D.O. [address] [place] [phone] Chronic Kidney Disease Stage 5 Glomerula r Filtration Rate Less Than 15 ([facility]LY [facility]); Radiology in Jatin Mcconnell M.D. [address] [place] [phone] Failure Renal End Stage ([facility]); Sb Hernandez Jidi, M.D. [address] [place] [address] Thombosis Arteriovenous Fistula Initial ([facility]) [place] [address] [place] [address] Social History Tobacco Use Types [...] How often do you attend anglican or religion 1 to 4 times per [...] for the very basics like Not jarrett lily hard 12/23/2021 food, housing, medical care, [...] INR testing. documented as of this encounter Procedure Notes Allan Basurto M.D. - 12/20/2020 3:54 PM CDT PATIENT DISPOSITION Return to Outpatient Unit for recovery. Discharge patient when discharge criteria met. POST-PROCEDURE DIAGNOSIS ESRD, clotted fistula graft PROCEDURE PERFORMED AND DESCRIPTION HD catheter placement. Ready for use. PROCEDURE DETAILS See Radiology Report SPECIMENS REMOVED None FINDINGS See radiology report PRIMARY PROCEDURALIST Jayesh ASSISTANTS Kyree Basurto COMPLICATIONS None. DRAINS None. IMPLANTS None. ANESTHESIA Moderate Sedation. FLUIDS See MAR ESTIMATED BLOOD LOSS <5ml CURRENT MEDICATIONS No Medication Changes FOLLOW-UP LETTER None. MAY RETURN TO WORK Not applicable PATIENT INSTRUCTIONS No return appointment documented in this encounter Plan of Treatment Upcoming Encounters Date Type Specialty Care Team Description 06/01/2022 Telemedicine Pharmacy An Nicholas APRN, C.N.P., D.N.P., M.S.N. [address] [place] [address] [phone] (Wo rk) 07/31/2022 Lab Laboratory Medicine Tony Rubalcava M. B., Sydnie, Mukund [address] [place] [address] [phone] (Wo rk) 07/31/2022 Lab Laboratory Medicine Tony Rubalcava M. B., Sydnie, Mukund [address] [place] [address] [phone] (Wo rk) 07/31/2022 Office Visit Transplant Tony Rubalcava M.B., Sydnie, Mukund [address] [place] [address] [phone] (Wo rk) 07/31/2022 Appointment Radiology Tony Rubalcava M.B., Sydnie, Mukund [address] [place] [address] [phone] (Wo rk) 08/01/2022 Office Visit Transplant Tony Rubalcava M.B., Sydnie, MDebra [address] [place] [address] [phone] (Wo rk) 08/01/2022 Clinical Support Transplant Tony Rubalcava M.B., Sydnie, MDebra [address] [place] [address] [phone] (Wo rk) documented as of [...] Results IR Dialysis / High Flow Catheter Placement [...] catheter. Catheter is ready for use. EP Whitney Rasheed Jr.ODavi [place] IR PROCEDURES documented in this encounter Visit Diagnoses Diagnosis Chronic Kidney Disease Stage 5 Glomerula r Filtration Rate Less Than 15 (HCC) Failure Renal End Stage (HCC) Thombosis Arteriovenous Fistula Initial (HCC) documented in this encounter Administered Medications Inactive Administered Medications - up to 3 most recent administrations Medication Order MAR Action Action Date Dose Rate Site NaCl 0.9% infusion 20 mL/hr, intravenous, Once as needed, t o keep vein open, Starting on Sun12/20/20 at 1346, For 1 dose, Intraprocedure (CV) documented in this encounter Active and Recently Administered Medications Times are shown in CDT. PRN Medication Order 12/18/2020 12/19/2020 12/20/2020 NaCl 0.9% infusion 20 mL/hr, intravenous, at 20 mL/hr, Once as needed, to keep vein open, Starting on 12/20/20 at 1346, For 1 dose, Intraprocedure (CV) documented in this encounter Additional Health Concerns Assessment Noted Time PHQ-9 Depression Total Score: 4 01/30/2019 12:13 PM CD T documented as of this encounter Care Teams Critical Care Clinical Nurse Specialist Relationship Specialty Start Date End Date Elsewhere, Pcp PCP - General 09/17/19 documented as of this encounter
--- OUTSIDE RECORDS SUMMARY | 2022-05-25 13:09 | XMS_ITS | Encounter Summary ---
:1960 Author Organization [facility] Address [address] [place] [address] Care Team Providers Name Role Phone Elsewhere, Pcp Primary Care Provider Unavailable Encounter Details Date Type Department Care Team Description 12/16/2020 Ancillary Procedure Department of Urology Social History Tobacco Use Types Packs/Day Years [...] How often do you attend latter-day or mosque 1 to 4 times per [...] Nicholas APRN C.N.P., D.N.P., M.S.N. [address] [place] [address] [phone] (Wo rk) 07/31/2022 Lab Laboratory Medicine Tony Rubalcava M. B., Sydnie, MDebra [address] [place] [address] [phone] (Wo rk) 07/31/2022 Lab Laboratory Medicine Tony Rubalcava M. B., Sydnie, MDebra [address] [place] [address] [phone] (Wo rk) 07/31/2022 Office Visit Transplant Tony Rubalcava M.B., ChBurke, MDebra [address] [place] [address] [phone] (Wo rk) 07/31/2022 Appointment Radiology Tony Rubalcava M.B., Sydnie, MDebra [address] [place] [address] [phone] (Wo rk) 08/01/2022 Office Visit Transplant Tony Rubalcava M.B., Sydnie, MDebra [address] [place] [address] [phone] (Wo rk) 08/01/2022 Clinical Support Transplant BentallTony M.B., Shashi Otoole. [address] [place], [place] [phone] (Wo rk) documented as of this encounter Procedures Procedure Name Priority Date/Time Associated Diagnosis Comme nts UROLOGY IMAGE EXAM Routine 12/16/2020 9:05 AM Res ults for this CDT procedure are i n the results section. documented in this encounter Results URETER-Urology Image Exam (12/16/2020 9:05 AM CDT) Specimen (Source) Anatomical Collection Method Collection Time Re ceived Time Location / / Volume Laterality 12/16/2020 9:04 AM CDT Narrative [facility] - 12/16/2020 10:51 AM CDT This order has been created [...] as of this encounter Care Teams Process Maintenance Technician Relationship Specialty Start Date End Date Elsewhere, Pcp PCP - General 09/17/19 documented as of this encounter
--- OUTSIDE RECORDS SUMMARY | 2022-05-25 13:09 | XMS_ITS | Encounter Summary ---
:1960 Author Organization [facility] Address [address] [place] [address] Care Team Providers Name Role Phone Elsewhere, [...] How often do you attend orthodox or anabaptism 1 to 4 times per [...] Nicholas APRN C.N.P., D.N.P., M.S.N. [address] [place] [address] [phone] (Wo rk) 07/31/2022 Lab Laboratory Medicine Tony Rubalcava M. B., Sydnie, MDebra [address] [place] [address] [phone] (Wo rk) 07/31/2022 Lab Laboratory Medicine Tony Rubalcava M. B., Sydnie, MDebra [address] [place] [address] [phone] (Wo rk) 07/31/2022 Office Visit Transplant Tony Rubalcava M.B., ChBurke, MDebra [address] [place] [address] [phone] (Wo rk) 07/31/2022 Appointment Radiology Tony Rubalcava M.B., Sydnie, MDebra [address] [place] [address] [phone] (Wo rk) 08/01/2022 Office Visit Transplant Tony Rubalcava M.B., Sydnie, MDebra [address] [place] [address] [phone] (Wo rk) 08/01/2022 Clinical Support Transplant RufinoeliTony M.B., Shashi Otoole. [address] [place], [place] 55 [phone] (Wo rk) documented as of this encounter Procedures Procedure Name Priority Date/Time Associated Diagnosis Comme nts UROLOGY IMAGE EXAM Routine 12/16/2020 10:35 AM Re sults for this CDT procedure are i n the results section. documented in this encounter Results URO RIGHT STENT-Urology Image Exam (12/16/2020 10:35 AM CDT) Specimen (Source) Anatomical Collection Method Collection Time Re ceived Time Location / / Volume Laterality 12/16/2020 10:34 AM CDT Narrative [facility] - 12/16/2020 10:47 AM CDT This order has been created [...] documented as of this encounter Care Teams Release Engineer Relationship Specialty Start Date End Date Elsewhere, Pcp PCP - General 09/17/19 documented as of this encounter
--- OUTSIDE RECORDS SUMMARY | 2022-05-25 13:09 | XMS_ITS | Encounter Summary ---
:1960 Author Organization [facility] Address [address] [place] [address] Care Team Providers Name Role Phone Elsewhere, Pcp Primary Care Provider Unavailable Reason for Referral Outpatient (Routine) - Closed Specialty Diagnoses / Procedures Referred By Contact Refer red To Contact Radiology Diagnoses Thombosis Arteriovenous Fistula Initial (HCC) Complication Dialysis Fistula Subsequent Steve Martínez Jr.[facility] Procedures IR Dialysis Fistula Venous RANCH SUPERVISOR Right IR Dialysis Fistula Declot Right D.O. [address] [place] [address] Referral ID Status Reason Start Date Expiration Date Visits Requ ested Visits Authorized [id number] Closed 12/16/2020 12/16/2021 1 1 Encounter Details Date Type Department Care Team Description 12/16/2020 Orders Only Division of Nephrology Steve Martínez Arteriovenous Fistula Initial (HCC) (Primary Dx); and Hypertension in Fracisco Garcia D.O. Complication Dialysis Fistula Subsequent [place], [place] 200 [facility] 200 [place] [phone] Social History Tobacco Use Types Packs/Day Years [...] How often do you attend rastafarian or oriental orthodox 1 to 4 times [...] Nicholas APRN, C.N.P., D.N.P., M.S.N. [address] [place] [address] [phone] (Wo rk) 07/31/2022 Lab Laboratory Medicine Tony Rubalcava M. B., Ch.BDavi, M.D. [address] [place] [address] [phone] (Wo rk) 07/31/2022 Lab Laboratory Medicine Tony Rubalcava M. B., Mukund Otoole [address] [place] [address] [phone] (Wo rk) 07/31/2022 Office Visit Transplant Tony Rubalcava M.B., Mukund Otoole [address] [place] [address] [phone] (Wo rk) 07/31/2022 Appointment Radiology Tony Rubalcava M.B., Mukund Otoole [address] [place] [address] [phone] (Wo rk) 08/01/2022 Office Visit Transplant Tony Rubalcava M.B., Sydnie, Mukund [address] [place] [address] 55 [phone] (Wo rk) 08/01/2022 Clinical Support Transplant Tony Rubalcava M.B., Sydnie, Mukund [address] [place] [address] 55 [phone] (Wo rk) documented as of this encounter Results IR Dialysis Fistula Venous RANCH SUPERVISOR Right (12/17/2020 10:29 AM CDT) Anatomical Region [...] PM CDT EXAM: IR DIALYSIS FISTULA VENOUS RANCH SUPERVISOR RIGHT CLINICAL HISTORY: 60-year-old female wit h [...] and micropuncture sheath exchanged for a 6 Rwandan vascular sheath . The patient was systemically [...] artery followed by placement of a 6 Rwandan vascular sheath. Kumpe catheter advanced into the [...] the original. EXAM: IR DIALYSIS FISTULA VENOUS RANCH SUPERVISOR RIG HT CLINICAL HISTORY: 60-year-old female wit [...] and micropuncture sheath exchanged for a 6 Rwandan vascular sheath . The patient was systemically [...] artery followed by placement of a 6 Rwandan vascular sheath. Kumpe catheter advanced into the [...] and SVC. 10 mm balloon angioplasty. EP Brody Rasheed Jr. IR PROCEDURES documented in this encounter Visit Diagnoses Diagnosis Thombosis Arteriovenous Fistula Initial (HCC) - Primary Complication Dialysis Fistula Subsequent Thombosis Arteriovenous Fistula Initial (HCC) Complication Dialysis Fistula Subsequent documented in this encounter Additional Health Concerns Assessment Noted Time PHQ-9 Depression Total Score: 4 01/30/2019 12:13 PM CD T documented as of this encounter Care Teams Social Scientist Relationship Specialty Start Date End Date Elsewhere, Pcp PCP - General 09/17/19 documented as of this encounter
--- OUTSIDE RECORDS SUMMARY | 2022-05-25 13:09 | XMS_ITS | Encounter Summary ---
:[address] [facility] Address [address] [place] [address] Care Team Providers Name Role Phone Elsewhere, Pcp Primary Care Provider Unavailable Encounter Details Date Type Department Care Team Description 12/16/2020 Documentation Division of Nephrology and Debora Regalado R.N. Hypertension in [place], [facility] 1 [place], [place] [address] [place] [phone] [place] [address] [phone] Social History Tobacco Use Types Packs/Day Years [...] How often do you attend mandaen or protestant 1 to 4 times per [...] encounter Progress Notes Debora Regalado R.N. - 12/16/2020 12:[address] Martínez ?? CHIEF COMPLAINT/PURPOSE OF VISIT REASON FOR REFERRAL: Declot of arterial venous graft. ?? HISTORY OF PRESENT ILLNESS ACCESS: Dialysis Gortex Graft Date placed - 04/26/19 Provider - ?? LOCATION OF ACCESS: Right Upper Arm ?? PERTINENT PROCEDURAL HISTORY: Patient referred for fistula declot procedure as indicated. She is being referred due to thrill and bruit being absent this morning, 12/16/20. She had a declot procedure yesterday, 12/15/20, and one other declot procedure on 05/21/19, she hasn't required any other interventions. She dial[facility]zes at the [place] [facility] unit on a Sunday, Sunday and Sunday schedule. ?? DIABETES: No ?? ANTICOAGULATION: None ?? LABORATORY RESULTS: Current Labs from [facility] can be found under the media tab. ?? IMPRESSION/REPORT/PLAN ?? SPECIFIC PATIENT INSTRUCTIONS: Patient instructed to report to [facility] tomorrow 12/17/20 at 7 am followed by a dialysis session at [facility]. ?? You must have a motor vehicle compliance analyst to drive you home due to the sedation you will receive. ?? You cannot drive for 24 hours after [...] medicines that you take with you. ?? If you take insulin please follow these instructions: N/A ?? If you are on Coumadin or blood thinners, please follow these instructions: N/A ?? Plan on spending about half to three fourths of the day in [place] for this procedure. ?? There is generally some waiting involved prior to the procedure. ?? Appointment scheduled via Interventional Radiology. documented in this encounter Plan of Treatment Upcoming Encounters Date Type Specialty Care Team Description 06/01/2022 Telemedicine Pharmacy An Nicholas APRN, C.NDaviPDavi, D.N.P., M.S.N. [address] [place] [address] 55 [phone] (Wo rk) 07/31/2022 Lab Laboratory Medicine Tony Rubalcava M. B., Sydnie, MDebra [address] [place] [address] 55 [phone] (Wo rk) 07/31/2022 Lab Laboratory Medicine Tony Rubalcava M. B., Sydnie, MDebra [address] [place] [address] 55 [phone] (Wo rk) 07/31/2022 Office Visit Transplant Tony Rubalcava M.B., ChBurke, MDebra [address] [place] [address] 55 [phone] (Wo rk) 07/31/2022 Appointment Radiology Tony Rubalcava M.B., Sydnie, MDebra [address] [place] [address] 55 [phone] (Wo rk) 08/01/2022 Office Visit Transplant Tony Rubalcava M.B., Sydnie, Mukund [address] [place] [address] 55 [phone] (Wo rk) 08/01/2022 Clinical Support Transplant Tony Rubalcava M.B., Sydnie, Mukund [address] [place] [address] 55 [phone] (Wo rk) documented as of this encounter Visit Diagnoses Not on filedocumented in this encounter Additional Health Concerns Assessment Noted Time PHQ-9 Depression Total Score: 4 01/30/2019 12:13 PM CD T documented as of this encounter Care Teams Motor Vehicle Parts Interpreter Relationship Specialty Start Date End Date Elsewhere, Pcp PCP - General 09/17/19 documented as of this encounter
--- OUTSIDE RECORDS SUMMARY | 2022-05-25 13:09 | XMS_ITS | Encounter Summary ---
:1960 Author Organization [facility] Address [address] [place] [address] Care Team Providers Name Role Phone Elsewhere, Pcp Primary Care Provider Unavailable Reason for Referral Outpatient (Routine) - Closed Specialty Diagnoses / Procedures Referred By Contact Refer red To Contact Radiology Lakshmi Lynn APR N, C.N.P. [facility] [address] [place] [phone] Referral ID Status Reason Start Date Expiration Date Visits Requ ested Visits Authorized [id number] Closed 12/23/2020 12/23/2021 1 1 Scheduling Instructions 10:00 AM, Gonda 2 Encounter Details Date Type Department Care Team Description 12/23/2020 Orders Only Department of Radiology, Lakshmi Lynn APRN, [facility], in C.N.P. [place], [place] [address] [place] [address] [address] [place] [phone] (Wo rk) Social History Tobacco Use Types [...] often do you attend roman catholic or scientology 1 to 4 times per [...] Nicholas APRN, C.N.P., D.N.P., M.S.N. [address] [place] [address] 55 [phone] (Nicolas wen) 07/31/2022 Lab Laboratory Medicine Tony Rubalcava M. B., Ch.BDavi, M.D. [address] [place] [address] 55 [phone] (Wo behzad) 07/31/2022 Lab Laboratory Medicine Tony Rubalcava M. B., Sydnie, Mukund [address] [place] [address] 55 [phone] (Wo rk) 07/31/2022 Office Visit Transplant Tony Rubalcava M.B., Sydnie, Mukund [address] [place] [address] 55 [phone] (Wo rk) 07/31/2022 Appointment Radiology Tony Rubalcava M.B., Sydnie, Mukund [address] [place] [address] 55 [phone] (Wo rk) 08/01/2022 Office Visit Transplant Tony Rubalcava M.B., Sydnie, Mukund [address] [place] [address] 55 [phone] (Wo rk) 08/01/2022 Clinical Support Transplant Tony Rubalcava M.B., Sydnie, Mukund [address] [place] [address] 55 [phone] (Wo rk) Scheduled Referrals Name Type Priority Associated Order Schedule Diagnoses Interventional Outpatient Referral Routine Expect ed: Radiology office visit 12/24, (clinic) Expires: 12/24/2023 documented as of this encounter Visit Diagnoses Not on filedocumented in this encounter Additional Health Concerns Assessment Noted Time PHQ-9 Depression Total Score: 4 01/30/2019 12:13 PM CD T documented as of this encounter Care Teams Music Publisher Relationship Specialty Start Date End Date Elsewhere, Pcp PCP - General 09/17/19 documented as of this encounter
--- OUTSIDE RECORDS SUMMARY | 2022-05-25 13:09 | XMS_ITS | Encounter Summary ---
:1960 Author Organization [facility] Address [address] [place] [address] Care Team Providers Name Role Phone Elsewhere, Pcp Primary Care Provider Unavailable Encounter Details Date Type Department Care Team Description 12/22/2020 Orders Only Division of Nephrology and Neymar Martínez Hypertension in [place], ., D.O. [place] 200 [facility] 200 [place] [phone] (Wo rk) Social History Tobacco Use Types [...] 12/23/2021 relatives? How often do you attend congregational or latter-day 1 to 4 times per year 12/23/2021 services? Do you belong to any clubs or organizations such No 12/23/2021 as congregational groups, unions, fraternal or athletic groups, or [...] An Nicholas APRN C.N.P., D.N.P., M.S.N. [address] [place] [address] 55 [phone] (Wo rk) 07/31/2022 Lab Laboratory Medicine Tony Rubalcava M. B., Sydnie, MDebra [address] [place] [address] 55 [phone] (Wo rk) 07/31/2022 Lab Laboratory Medicine Tony Rubalcava M. B., ChBurke, MDebra [address] [place] [address] 55 [phone] (Wo rk) 07/31/2022 Office Visit Transplant Tony Rubalcava M.B., Sydnie, MDebra [address] [place] [address] 55 [phone] (Wo rk) 07/31/2022 Appointment Radiology Tony Rubalcava M.B., Ch.Mukund Richards [address] [place] [address] 55 [phone] (Wo rk) 08/01/2022 Office Visit Transplant Tony Rubalcava M.B., Mukund Otoole [address] [place] [address] [phone] (Wo rk) 08/01/2022 Clinical Support Transplant Tony Rubalcava M.B., Sydnie, Mukund [address] [place] [address] [phone] (Wo rk) documented as of this encounter Visit Diagnoses Not on filedocumented in this encounter Additional Health Concerns Assessment Noted Time PHQ-9 Depression Total Score: 4 01/30/2019 12:13 PM CD T documented as of this encounter Care Teams Student Union Consultant Relationship Specialty Start Date End Date Elsewhere, Pcp PCP - General 09/17/19 documented as of this encounter
--- OUTSIDE RECORDS SUMMARY | 2022-05-25 13:10 | XMS_ITS | Encounter Summary ---
:1960 Author Organization [facility] Address [address] [place] [address] Care Team Providers Name Role Phone Elsewhere, Pcp Primary Care Provider Unavailable Reason for Visit Outpatient (Routine) - Closed Specialty Diagnoses / Procedures Referred By Contact Refer red To Contact Diagnoses Other Chronic Pain Юлия Painter M.D. [facility] Procedures PM Stimulator Reprogramming [address] [place] [phone] Referral ID Status Reason Start Date Expiration Date Visits Requ ested Visits Authorized [id number] Closed 08/06/2020 08/06/2021 1 1 Encounter Details Date Type Department Care Team Description 12/09/2020 Procedure visit Division of Pain Paul Turpin Pain Neuropathic (Primary Dx); Medicine in J, PLaith.-C., M.S. Other Chronic Pain [place], [place] [address] [place] [address] [place] [phone] Social History Tobacco Use Types Packs/Day Years [...] How often do you attend jainism or mormon 1 to 4 times per year 12/23/2021 [...] Sign Reading Time Taken Comments Blood Pressure 161/102 12/09/2020 10:50 AM CDT Pulse 67 12/09/2020 10:50 AM CDT Temperature - - Respiratory Rate - - Oxygen Saturation - - Inhaled Oxygen Concentration - - Weight - - Height - - Body Mass Index - - documented in this encounter Progress Notes Paul Turpin P.A.-C., M.S. - 12/09/2020 11:00 AM CDT SUBJECTIVE CHIEF COMPLAINT / REASON FOR VISIT Shabnam Wray is a 60 y.o. female who was referred to Pain Medicine by Юлия Painter M.D. for neuropathic pain. HISTORY OF PRESENT ILLNESS Shabnam Wray is a pleasant 60-year-old female. She is a patient of Dr. Painter. Briefly, a decision was made to trial a SPR PNS for right arm pain. She returns today to have this temporary lead removed. Overall, she notes significant success with the 60 day implantation. She does not have any pain today. She is really quite pleased. She does not have any concerns and she is doing well today. Current Outpatient Medications Medication Sig Dispense Refill [...] day with meals. Lunch and dinner. ??? gabapentin (NEURONTIN) 100 mg capsule Take [...] 3 ??? predniSONE (DELTASONE) 5 mg tablet Take 1 tablet (5 mg total) by mouth daily. 90 tablet 3 ??? rosuvastatin (CRESTOR) 5 mg tablet TAKE 1 TABLET BY MOUTH DAILY. 90 tablet 3 ??? sevelamer (RENVELA) 800 mg tablet Take 1 tablet (800 mg total) by mouth daily with breakfast. Take with largest meal of the day 90 tablet 3 ??? tacrolimus (PROGRAF) 1 mg capsule Take 3 capsules (3 mg total) by mouth 2 (two) times a day. 540capsule 3 No current facility-administered medications for this visit. Allergies: Epoetin natalia, Latex, and Pain medicine The following portions of the patient's history were reviewed and updated as appropriate: family history. All systems were reviewed and found to be negative except as noted. REVIEW OF SYSTEMS REVIEW OF SYSTEMS OBJECTIVE PHYSICAL EXAM Physical Exam General Appearance: No acute distress noted and well nourished Cardiovascular: Peripheral vascular status intact without signs of limb ischemia Eyes: Pupils symmetric, 3-4 mm. Head: Normocephalic, atraumatic. Pulmonary: Respirations non-labored with no signs of respiratory compromise Integumentary: Dry and intact to affected site. No rash present. Skin was appropriately warm. Neuro/Mental: Alert, oriented to person, place and time, speech clear and coherent and answers questions appropriately Musculoskeletal: No pain with palpation along a ulnar aspect of the arm. Gait: Nonantalgic. ASSESSMENT / PLAN ASSESSMENT / PLAN #1 Other Chronic Pain #2 Pain Neuropathic The patient returns to the Pain Clinic today for the consideration of the PNS lead removal. This waseasily removed without any difficulties. The lead appeared to be intact. There were no complications. She will follow-up here on an as- needed basis. PATIENT EDUCATION Ready to learn, no apparent learning barriers were identified; learning preferences include listening. Explained diagnosis and treatment plan; patient expressed understanding of the content. documented in this encounter Plan of Treatment Upcoming Encounters Date Type Specialty Care Team Description 06/01/2022 Telemedicine Pharmacy An Nicholas APRN, C.N.P., D.N.P., M.S.N. [address] [place] [address] [phone] (Wo rk) 07/31/2022 Lab Laboratory Medicine Tony Rubalcava M. B., ChBurke, MElvia. [address] [place] [address] [phone] (Wo rk) 07/31/2022 Lab Laboratory Medicine Tony Rubalcava M. B., Sydnie, Mukund [address] [place] [address] [phone] (Wo rk) 07/31/2022 Office Visit Transplant Tony Rubalcava M.B., Sydnie, Mukund [address] [place] [address] [phone] (Wo rk) 07/31/2022 Appointment Radiology Tony Rubalcava M.B., Sydnie, Mukund [address] [place] [address] [phone] (Wo rk) 08/01/2022 Office Visit Transplant Tony Rubalcava M.B., Sydnie, Mukund [address] [place] [address] [phone] (Wo rk) 08/01/2022 Clinical Support Transplant Tony Rubalcava M.B., Sydnie, Mukund [address] [place] [address] [phone] (Wo rk) documented as of this encounter Visit Diagnoses Diagnosis Pain Neuropathic - Primary Other Chronic Pain documented in this encounter Additional Health Concerns Assessment Noted Time PHQ-9 Depression Total Score: 4 01/30/2019 12:13 PM CD T documented as of this encounter Care Teams Leasing Coordinator Relationship Specialty Start Date End Date Elsewhere, Pcp PCP - General 09/17/19 documented as of this encounter
--- OUTSIDE RECORDS SUMMARY | 2022-05-25 13:10 | XMS_ITS | Encounter Summary ---
:[address] [facility] Address [address] [place] [address] Care Team Providers Name Role Phone Elsewhere, Pcp Primary Care Provider Unavailable Encounter Details Date Type Department Care Team Description 12/16/2020 Anesthesia Event Outpatient Procedure Deo Dsouza APRN, WAITER/WAITRESS BUFFET [address] [place] [phone] Center in [employer], Mercy Bhatia M.D., Ph.D. [address] [place] [phone] [phone] Anesthesia Record Procedure Summary Procedure Name Responsible Anesthesia Start Anesthesia Stop Time Anesthesiologist Time EXCHANGE URETERAL Deo Dsouza APRN, FLORENCIO 12/16/20 0956 12/16 1046 STENT, Imajin stent, allograft kidney. (Right: Ureter) Events Date Time Event Comment 12/16/2020 0956 An Start Machine/Equipmen t Checked Infection Precautions Foll owed Procedure/Site Verified NPO Sta tus Verified Supine Standard ASA Mon itors Applied 1007 Turnover to Proceduralist 1020 Proc Start 1035 Proc Fin 1041 Turnover to ANE Staff 1042 an stop data 1046 An End I completed my h andoff to the receiving staff during [facility] we 1. Identified the patient 2. Ident ified the responsible provider 3. Revi ewed the pertinent medical history 4. Discu ssed the surgical course 5. Reviewed intra-o p anesthesia management and issues during an esthesia 6. Set expectations for post-procedure period 7. Allowed opportun ity for questions and acknowledgement of understanding. Name Total fentanyl injection 50 mcg/mL 50 mcg lidocaine 2% (mg) injection 60 mg propofol 10 mg/mL injection 40 mg propofol 10 mg/mL infusion 300.25 mg ondansetron PF 4 mg/2 mL injection 4 mg vancomycin 1,000 mg in NaCl 0.9% 250 mL (VANCOCIN) IVP B Cannot be calculated ceFAZolin injection 2 g (ANCEF) 2 g phenylephrine 100 mcg/mL injection 100 mcg Lactated Ringers Free Drip 50 mL Agents No agents on file. Blood No blood administrations on file. Lines, Drains, and Airways Type Details Placement Removal Hemodialysis AV Access Placement Date: 05/06/19 0000 by 05/06/19 (present Xin Proctor, upon arrival to pacu) R.N. Ureteral Drain/Stent 09/16/19; 1700; 09/16/19 1700 by Right; Other Soraya Garcia, (Comment) (Internal) R.N. Puncture 1; 04/07/22 12/10/20 1524 by 04/07/22 0000 Joshua Grayson , R.Ritu Hemodialysis AV Access Placement Date: 05/06/19 0000 by 04/07/22 0000 by 05/06/19; Removal Harini Lim Sackett, C olin J, Date: 04/07/22 R.N. R.N. (duplicate LDA) (RETIRED) Incision 10/14/20; 1029; Arm; 10/14/20 1029 by 1 1418 by rachid elo; Norma Mello [facility] inic-Backgroun 05/10/21 (Removed by Camron Belle Scheduli ng background completion Automated Batch Job utility); 1418 (Removed by background completion utility) Puncture 12/10/20; 1512; No; 12/10/20 1512 by 04/07/22 00 00 by Neck; Left; 04/07/22 Radha Landin Sackett, Colin J, AnnN. R.N. Peripheral IV Placement Date: 12/16/20 0943 by 12/16/20 1301 b y 12/16/20; Placement Cristian Rojas, Mary Martins, Time: 942; Catheter Camron Sheets, R.N . Size: 24 G; Orientation: Left; Location: Hand; Site Prep: Alcohol; Technique: Anatomical landmarks; Insertion Attempts: 2; Removal Date: 12/16/20; Removal Time: 1300; Removal Reason: Patient discharged documented in this encounter Social History Tobacco [...] encounter OR Notes Anesthesia Postprocedure Evaluation - Deo Dsouza APRN, CRNA - 12/16/2020 10:46 AM CDT Patient: Shabnam Wray Procedure Summary Date: 12/16/20 Room / Location: [facility]OM [place] [address] / [place], [place] Anesthesia Start: 09 Anesthesia Stop: 1046 Procedure: EXCHANGE URETERAL STENT, Imajin stent, allograft kidney. (Right Ureter) Diagnosis: Ureteral Stent Exchange (Ureteral obstruction, allograft kidney.) Surgeons: Geraldo Spear M.D. Responsible Provider: Deo Dsouza APRN, CRNA Anesthesia Type: MAC ASA Status: 3 Anesthesia Type: MAC Last vitals Vitals Value Taken Time BP Temp Pulse 61 12/16/20 1046 Resp 14 12/16/20 1046 SpO2 94 % 12/16/20 1046 Vitals shown include unvalidated device data. Please reference Vitals flowsheet for most recent vital signs. Anesthesia Post Evaluation Patient Disposition: dismissal Cardiovascular status: hemodynamics (HR & BP) acceptable Respiratory status: patent airway with spontaneous effort Temperature: normothermic Oxygen requirements: room air Level of consciousness: awake Pain score: pain adequately controlled and/or at baseline Post Op nausea/vomiting: none Hydration status: euvolemic Anesthesia Preprocedure Evaluation - Mercy Bhatia M.D., Ph.D. - 12/16/2020 9:48 AM CDT Preprocedure Anesthesia & H&P Assessment Procedure Summary Date/Time: 12/16/20 0955 Procedure: EXCHANGE URETERAL STENT, Imajin stent, allograft kidney. (Right ) Diagnosis: Ureteral Stent Exchange [Z46.6] Pre-op diagnosis: Ureteral obstruction, allograft kidney. Location: ROOM [place] [address] / [facility] in [place], [place] Surgeons: Geraldo Spear M.D. Pertinent components [...] Therapy ID (+) COVID-19 Infection Other (+) COVID-19 Infection (+) Complication Kidney Transplant (HCC) (+) Transplant Renal (HCC) OBJECTIVE PHYSICAL EXAMINATION Airway (HEENT) Mallampati: II Cardiovascular Rhythm: Regular Functional Capacity: >4 METS Pulmonary Pulmonary Assessment: Non labored General / Constitutional General State of Health:: calm Neurological Neurologic Assessment:??alert ASSESSMENT / PLAN ANESTHESIA PLAN ASA: 3 Anesthesia Plan: MAC Very difficult IV stick On dialysis M-W- Patient seen and allergies reviewed; anesthesia plan and risks discussed directly with patient / legal guardian, or through an public speaking instructor; patient evaluated and approved for anesthesia / sedation The use of blood products not discussed Approval to Proceed: approved for anesthesia documented in this encounter Plan of Treatment Upcoming Encounters Date Type Specialty Care Team Description 06/01/2022 Telemedicine Pharmacy An Nicholas APRN, C.N.P., D.N.P., M.S.N. [address] [place] [address] [phone] (Wo rk) 07/31/2022 Lab Laboratory Medicine Tony Rubalcava M. B., Ch.B., M.D. [address] [place] [address] [phone] (Wo rk) 07/31/2022 Lab Laboratory Medicine Tony Rubalcava M. B., Sydnie, Mukund [address] [place] [address] [phone] (Wo rk) 07/31/2022 Office Visit Transplant Tony Rubalcava M.B., Sydnie, Mukund [address] [place] [address] [phone] (Wo rk) 07/31/2022 Appointment Radiology Tony Rubalcava M.B., Sydnie, Mukund [address] [place] [address] [phone] (Wo rk) 08/01/2022 Office Visit Transplant Tony Rubalcava M.B., Sydnie, Mukund [address] [place] [address] [phone] (Wo rk) 08/01/2022 Clinical Support Transplant Tony Rubalcava M.B., Sydnie, Mukund [address] [place] [address] [phone] (Wo rk) documented as of this encounter Visit Diagnoses Not on filedocumented in this encounter Administered Medications Inactive Administered Medications - up to 3 most recent administrations Medication Order MAR Action Action Date Dose Rate Site ceFAZolin injection 2 g (ANCEF) Given 12/16/2020 10:18 AM CDT 2 g 2 g, intravenous, Once, On [place] 12/16/20 at 0930, For 1 dose, Intra-Op, If needed, reconstitute vial per package insert instructions. See IVAG for administration guidelines. , Drug Monitoring Program: Pharmacist to adjust medication dosing based on indication and drug clearance factors., Indications: Prophylaxis, surgical fentaNYL injection (SUBLIMAZE) Given 12/16/2020 10:07 AM CDT 50 mcg intravenous, As needed, Starting on [place] 12/16/20 at 1007, Anesthesia Intra-op lactated ringers New Bag 12/16/2020 10:07 AM CDT intravenous, Continuous Infusion: Per Instructions PRN, Starting on [place] 12/16/20 at 1007, Anesthesia Intra-op lidocaine (PF) (cardiac) injection Given 12/16/2020 10:07 AM CDT 60 mg intravenous, As needed, Starting on [place] 12/16/20 at 1007, Anesthesia Intra-op ondansetron (PF) injection (ZOFRAN) Given 12/16/2020 10:07 AM CDT 4 mg intravenous, As needed, Starting on [place] 12/16/20 at 1007, Anesthesia Intra-op phenylephrine injection Given 12/16/2020 10:26 AM CDT 100 mcg intravenous, As needed, Starting on [place] 12/16/20 at 1026, Anesthesia Intra-op propofol 10 mg/mL infusion Rate/Dose 12/16/2020 100 mcg/kg/min 55.86 (DIPRIVAN) Change 10:24 AM CDT mL/hr intravenous, Continuous Infusion: Per Instructions PRN, Starting on [place] 12/16/20 at 1007, Anesthesia Intra-op New Bag 12/16/2020 10:07 AM CDT 125 mcg/kg/min 69.825 mL/hr propofoL injection (DIPRIVAN) Given 12/16/2020 10:07 AM CDT 40 mg intravenous, As needed, Starting on [place] 12/16/20 at 1007, Anesthesia Intra-op vancomycin 1,000 mg in NaCl 0.9% 250 mL Rate/Dose Verify 021 9:56 AM CDT (VANCOCIN) IVPB 1,000 mg (rounded from 1,071 mg = 15 mg/kg ? 71.4 kg Adjusted weight), intravenous, at 260 mL/hr, Administer over 60 Minutes, Once, On [place] 12/16/20 at 0900, For 1 dose, Intra-Op, Drug Monitoring Program: Pharmacist to adjust medication dosing based on indication and drug clearance factors., Indications: Prophylaxis, surgical New Bag 12/16/2020 9:48 AM CDT 1,000 mg 260 mL/hr documented in this encounter Additional Health Concerns Assessment Noted Time PHQ-9 Depression Total Score: 4 01/30/2019 12:13 PM CD T documented as of this encounter Care Teams Court Specialist Relationship Specialty Start Date End Date Elsewhere, Pcp PCP - General 09/17/19 documented as of this encounter
--- OUTSIDE RECORDS SUMMARY | 2022-05-25 13:10 | XMS_ITS | Encounter Summary ---
:1960 Author Organization [facility] Address [address] [place] [address] Care Team Providers Name Role Phone Elsewhere, Pcp Primary Care Provider Unavailable Encounter Details Date Type Department Care Team Description 12/09/2020 Hospital Encounter Department of GuilhermeTwin lowery Chro nic Kidney Disease; Laboratory Medicine M.D. Pretransplant Recipient Evaluation Exam and Pathology, [address] [place] [address] in [facility] [address] [place] [phone] [place] [address] (Work) [place], [place] [phone] (Fax) [phone] Social History Tobacco Use Types Packs/Day Years [...] How often do you attend baptism or anglican 1 to 4 times per [...] 6 (six) hours as needed for pain. gabapentin (NEURONTIN) Take 3 capsules (300 450 [...] An Nicholas APRN, C.N.P., D.N.P., M.S.N. [address] [place] [phone] (Wo rk) 07/31/2022 Lab Laboratory Medicine Tony Rubalcava M. B., Ch.B., M.D. [address] [place] [address] [phone] (Wo rk) 07/31/2022 Lab Laboratory Medicine Tony Rubalcava M. B., Ch.B., M.D. [address] [place] [address] [phone] (Wo rk) 07/31/2022 Office Visit Transplant Tony Rubalcava M.B., Ch.B., M.D. [address] [place] [address] [phone] (Wo rk) 07/31/2022 Appointment Radiology Tony Rubalcava M.B., [place] [address] [place] [address] [phone] (Wo rk) 08/01/2022 Office Visit Transplant Tony Rubalcava M.B., [place] [address] [place] [address] [phone] (Wo rk) 08/01/2022 Clinical Support Transplant Tony Rubalcava M.B., [place]und [place] [address] [place] [address] [phone] (Wo rk) documented as of this encounter Procedures Procedure Name Priority Date/Time Associated Diagnosis Comme nts HLA CLASS II SAB Routine 12/22/2020 5:15 AM Chronic Kidney Res ults for this ANTIBODY SCREEN CDT Disease procedure are in Pretransplant the results Recipient Evaluation section . Exam HLA CLASS I SAB Routine 12/22/2020 5:15 AM Chronic Kidney Resu lts for this ANTIBODY SCREEN CDT Disease procedure are in Pretransplant the results Recipient Evaluation section . Exam documented in this encounter Results HLA Class II SAB Antibody Screen (12/22/2020 5:15 AM CDT) [facility] Method Time Signature Class II SAB Positive Not Applicable 12/27/2020 D[facility] Overall 10:33 AM CDT Result Class II SAB 37 12/27/2020 [facility] cPRA 10:33 AM CDT Comment: ----ADDITIONAL INFORMATION---- This PRA is a [facility] calculated PRA. PRA is based on the antigen frequency of the Tissue Typing patient a nd donor population. ??PRA reflects all antibodie s with a normalized value (MFI) above 300. SAB DRB1 Specificity NONE 12/27/2020 10:33 AM CDT D[facility] SAB [id number] Specificity NONE 12/27/2020 10:33 AM CDT [facility] SAB DQB1 Specificity see below 12/27/2020 10:33 AM CDT DBB[facility] Comment: 2(A*05:01;B*02:01)[8910] Format: Serologic Eq.(DQA1;DQB1 Mol. All jorge)[Normalized MFI] NOTE: Data is displayed in descending or kristi by Mean Fluorescence Intensity (MFI). ??Serologic equivalents can be di splayed multiple times for different molecular alleles. SAB DPB1 Specificity NONE 12/27/2020 10:33 AM CDT DBB8 Comment: ----ADDITIONAL INFORMATION---- Method: Luminex Flow Cytometry CLIA: [id number] ??CLIA Mid Level Project Manager: SHANTA LOYD MD,PhD Specimen Anatomical Collection Method Collection Time Receive d Time (Source) Location / / Volume Laterality Blood (Blood, 12/22/2020 5:15 AM 12/24/19 21 Venous) CDT 11:33 AM CDT Resulting Agency Comment Mailed In Specimen Twin Vanegas M.D. LAB HLA ORDERABLES Performing Organization Address City/State/ZIP Code Phon e Number [facility] - [address] [place], [place] [address] [facility] DBB[address] [place] [address] [facility] [address] HLA Class I SAB Antibody Screen (12/22/2020 5:15 AM CDT) [facility] Method Time Signature Class I SAB Positive Not Applicable 12/27/2020 [facility] Overall 10:23 AM CDT Result Class I SAB 22 12/27/2020 [facility] cPRA 10:23 AM CDT Comment: ----ADDITIONAL INFORMATION---- This PRA is a [facility] calculated PRA. PRA is based on the antigen frequency of the Tissue Typing patient a nd donor population. ??PRA reflects all antibodie s with a normalized value (MFI) above 300. SAB A Specificity see below 12/27/2020 10:23 AM CD T DBB8 Comment: 32(32:01)[2189], 25(25:01)[1195], 23(23: 01)[1031], 24(24:03)[876], 24(24:02)[849], 31(31:01 )[803], 30(30:01)[725], 30(30:02)[665] Format: Serologic Eq.(A Mol. Allele)[Nor malized MFI] NOTE: Data is displayed in descending or kristi by Mean Fluorescence Intensity (MFI). ??Serologic equivalents can be di splayed multiple times for different molecular alleles. SAB B Specificity see below 12/27/2020 10:23 AM CD T D[facility] Comment: 51(51:01)[5965], 51(51:02)[3640], 49(49: 01)[2957], 78(78:01)[2355], 63(15:16)[2060], 38(38: 01)[2043], 75(15:02)[1910], 59(59:01)[1814], 77(15: 13)[1750], 52(52:01)[1704], 57(57:01)[1596], 57(57: 03)[1459], 53(53:01)[1388], 58(58:01)[1290] Format: Serologic Eq.(B Mol. Allele)[Nor malized MFI] NOTE: Data is displayed in descending or kristi by Mean Fluorescence Intensity (MFI). ??Serologic equivalents can be di splayed multiple times for different molecular alleles. SAB C Specificity NONE 12/27/2020 10:23 AM CD T DBB8 Comment: ----ADDITIONAL INFORMATION---- Method: Luminex Flow Cytometry CLIA: [id number] ??CLIA Mid Level Project Manager: SHANTA LOYD MD,PhD Specimen Anatomical Collection Method Collection Time Receive d Time (Source) Location / / Volume Laterality Blood (Blood, 12/22/2020 5:15 AM 12/24/19 21 Venous) CDT 11:33 AM CDT Resulting Agency Comment Mailed In Specimen Twin Vanegas M.D. LAB HLA ORDERABLES Performing Organization Address City/State/ZIP Code Phon e Number [facility] - [address] [place], [place] [address] [facility] [address]BB[address] [place] [address] [facility] [address] documented in this encounter Visit Diagnoses Diagnosis Chronic Kidney Disease Pretransplant Recipient Evaluation Exam documented in this encounter Additional Health Concerns Assessment Noted Time PHQ-9 Depression Total Score: 4 01/30/2019 12:13 PM CD T documented as of this encounter Care Teams Certified Court/Medical Interpreter Relationship Specialty Start Date End Date Elsewhere, Pcp PCP - General 09/17/19 documented as of this encounter
--- OUTSIDE RECORDS SUMMARY | 2022-05-25 13:10 | XMS_ITS | Encounter Summary ---
:1960 Author Organization [facility] Address [address] [place] [id number] Care Team Providers Name Role Phone Elsewhere, Pcp Primary Care Provider Unavailable Encounter Details Date Type Department Care Team Description 12/10/2020 Orders Only Division of Nephrology Zaire Candelario Throm bosis Vascular Graft Subsequent (Primary Dx); and Hypertension, LINE SERVICE ATTENDANT, C.N.P. Chronic Failure Renal End Stage Renal Di [facility] Dialysis Dependent (FORMERLY [facility]) [facility] [place] [address] [place] [address] [place] [id number] [place], [place] [phone] (Work) [phone] Social History Tobacco Use Types Packs/Day Years [...] How often do you attend mormonism or mandaen 1 to 4 times per [...] An Nicholas APRN C.N.P., D.N.P., M.S.N. [address] [place] [address] [phone] (Nicolas wen) 07/31/2022 Lab Laboratory Medicine Tony Rubalcava M. B., ChBurke, MElvia. [address] [place] [address] [phone] (Nicolas wen) 07/31/2022 Lab Laboratory Medicine Tony Rubalcava M. B., ChDaviBDavi, MElvia. [address] [place] [address] [phone] (Wo behzad) 07/31/2022 Office Visit Transplant Tony Rubalcava M.B., ChBurke, MElvia. 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
--- OUTSIDE RECORDS SUMMARY | 2022-05-25 13:10 | XMS_ITS | Encounter Summary ---
:1960 Author Organization [facility] Address [address] [place] [address] Care Team Providers Name Role Phone Elsewhere, Pcp Primary Care Provider Unavailable Reason for Visit Reason Comments OPC Procedure Testing 12/16 Encounter Details Date Type Department Care Team Description 12/13/2020 Clinical Communication RST PETRONA Spear, OPC Procedure [address] [facility] Geraldo Domínguez M.D. (Testing 12/16) [place], [place] [address] [place] [id number] [place] [address] Social History Tobacco Use Types Packs/Day Years [...] How often do you attend pentecostal or scientologist 1 to 4 times per [...] encounter Miscellaneous Notes Telephone Encounter - Stephanie Mathis - 12/13/2020 7:51 AM CDT Date of Surgery:12/16/2020 SIDNEY:10/14 ANE Urine:12/09 Listing Visit:12/16 Covid Test: 11/16 Positive documented in this encounter Plan of Treatment Upcoming Encounters Date Type Specialty Care Team Description 06/01/2022 Telemedicine Pharmacy An Nicholas APRN C.N.P., D.N.P., M.S.N. [address] [place] [address] [phone] (Nicolas wen) 07/31/2022 Lab Laboratory Medicine Tony Rubalcava M. B., Ch.B., M.D. [address] [place] [address] [phone] (Nicolas wen) 07/31/2022 Lab Laboratory Medicine Tony Rubalcava M. B., Ch.B., M.D. [address] [place] [address] [phone] (Nicolas wen) 07/31/2022 Office Visit Transplant Tony Rubalcava M.B., Sydnie, Mukund [address] [place] [address] [phone] (Wo rk) 07/31/2022 Appointment Radiology Tony Rubalcava M.B., Sydnie, Mukund [address] [place] [address] [phone] (Wo rk) 08/01/2022 Office Visit Transplant Tony Rubalcava M.B., Sydnie, Mukund [address] [place] [address] [phone] (Wo rk) 08/01/2022 Clinical Support Transplant Tony Rubalcava M.B., Sydnie, Mukund [address] [place] [address] [phone] (Wo rk) documented as of this encounter Visit Diagnoses Not on filedocumented in this encounter Additional Health Concerns Assessment Noted Time PHQ-9 Depression Total Score: 4 01/30/2019 12:13 PM CD T documented as of this encounter Care Teams Roofing 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
--- OUTSIDE RECORDS SUMMARY | 2022-05-25 13:10 | XMS_ITS | Encounter Summary ---
:1960 Author Organization [facility] Address [address] [place] [address] Care Team Providers Name Role Phone Elsewhere, Pcp Primary Care Provider Unavailable Encounter Details Date Type Department Care Team Description 12/13/2020 Orders Only Department of Urology Geraldo Spear In fection Urinary Tract in Catrachita Hernandez M.D. (Primary Dx) [place] [address] [place] [address] 200 [place] [phone] Social History Tobacco Use Types Packs/Day Years [...] 12/23/2021 relatives? How often do you attend mormon or jew 1 to 4 times per year 12/23/2021 services? Do you belong to any clubs or organizations such No 12/23/2021 as mormon groups, unions, fraternal or athletic groups, or [...] documented as of this encounter Progress Notes Shanon Benjamin M.D. - 12/13/2020 12:40 PM CDT Signed, thanks ! documented in this encounter Plan of Treatment Upcoming Encounters Date Type Specialty Care Team Description 06/01/2022 Telemedicine Pharmacy An Nicholas APRN, C.N.P., D.N.P., M.S.N. [address] [place] [address] [phone] (Nicolas wen) 07/31/2022 Lab Laboratory Medicine Tony Rubalcava M. B., Ch.B., M.D. [address] [place] [address] [phone] (Nicolas wen) 07/31/2022 Lab Laboratory Medicine Tony Rubalcava M. B., Ch.B., M.D. [address] [place] [address] [phone] (Nicolas wen) 07/31/2022 Office Visit Transplant Tony Rubalcava M.B., Sydnie, Mukund [address] [place] [address] [phone] (Wo rk) 07/31/2022 Appointment Radiology Tony Rubalcava M.B., Sydnie, Mukund [address] [place] [address] [phone] (Wo rk) 08/01/2022 Office Visit Transplant Tony Rubalcava M.B., Sydnie, Mukund [address] [place] [address] [phone] (Wo rk) 08/01/2022 Clinical Support Transplant Tony Rubalcava M.B., Sydnie, uMkund [address] [place] [address] [phone] (Wo rk) documented as of this encounter Visit Diagnoses Diagnosis Infection Urinary Tract - Primary documented in this encounter Additional Health Concerns Assessment Noted Time PHQ-9 Depression Total Score: 4 01/30/2019 12:13 PM CD T documented as of this encounter Care Teams Sde Relationship Specialty Start Date End Date Elsewhere, Pcp PCP - General 09/17/19 documented as of this encounter
--- OUTSIDE RECORDS SUMMARY | 2022-05-25 13:10 | XMS_ITS | Encounter Summary ---
:1960 Author Organization [facility] Address [address] [place] [address] Care Team Providers Name Role Phone Elsewhere, Pcp Primary Care Provider Unavailable Reason for Visit Outpatient (Routine) - Closed Specialty Diagnoses / Procedures Referred By Contact Refer red To Contact Radiology Diagnoses Thrombosis Vascular Graft Subsequent Lakshmi Lynn APRN, [facility] Procedures IR Dialysis Fistula Stent Right IR Dialysis Fistulagram Right C.N.P. [address] [place] [address] Referral ID Status Reason Start Date Expiration Date Visits Requ ested Visits Authorized [id number] Closed 12/10/2020 12/10/2021 1 1 Encounter Details Date Type Department Care Team Description 12/15/2020 Hospital Encounter Department of Lakshmi Lynn APRN, C.N.P. [address] [place] [phone] Thrombosis Vascular Radiology in Jatin Mcconnell M.D. [address] [place] [address] Graft Subsequent Aidee Hernandez Kevin R, R.T.(R)() [facility] R.[facility].(R[facility]() [facility] [place] [phone] Social History Tobacco Use Types Packs/Day [...] How often do you attend christian or restorationism 1 to 4 times per [...] Sign Reading Time Taken Comments Blood Pressure 184/118 12/15/2020 1:45 PM CDT Pulse 69 12/15/2020 1:45 PM CDT Temperature 36.7 ??C (98.1 ??F) 12/15/2020 1:26 PM CDT Respiratory Rate 21 12/15/2020 1:45 PM CDT Oxygen Saturation 99% 12/15/2020 1:45 PM CDT Inhaled Oxygen Concentration - - Weight 93.1 kg (205 lb 4 oz) 12/15/2020 10:20 AM CDT Height - - Body Mass Index 34.16 10/14/2020 8:11 AM [facility]ER documented in this encounter Medications at Time [...] day. acetaminophen (TYLENOL) Take 2 tablets 0 05/12/2004/07/2022 500 mg tablet (1,000 mg total) by mouth every 6 (six) hours as needed for pain. cefdinir (OMNICEF) 300 Take 1 capsule (300 3 capsule 0 /01/202109/22/2021 mg capsuleIndications: mg total) by mouth Infection [...] encounter Procedure Notes Jatin Mcconnell M.D. - 12/15/2020 1:49 PM CDT PATIENT DISPOSITION Return to Outpatient Unit for recovery. Discharge patient when discharge criteria met. POST-PROCEDURE DIAGNOSIS Thrombosed right upper extremity graft PROCEDURE PERFORMED AND DESCRIPTION Fistulogram, declot and stenting PROCEDURE DETAILS See Radiology Report SPECIMENS REMOVED None FINDINGS Successful declot and stenting of right upper extremity graft. Removal of tunneled left IJ dialysis catheter. PRIMARY PROCEDURALIST Dr. Jatin Mcconnell ASSISTANTS None [...] Nicholas APRN, C.N.P., D.N.P., M.S.N. [address] [place] [address] [phone] (Wo rk) 07/31/2022 Lab Laboratory Medicine Tony Rubalcava M. B., Ch.BDavi, MDebra [address] [place] [address] [phone] (Wo rk) 07/31/2022 Lab Laboratory Medicine Tony Rubalcava M. B., Sydnie, Mukund [address] [place] [address] [phone] (Wo rk) 07/31/2022 Office Visit Transplant Tony Rubalcava M.B., Mukund [place] [address] [place] [phone] (Wo rk) 07/31/2022 Appointment Radiology Tony Rubalcava M.B., Sydnie, Mukund [address] [place] [phone] (Wo rk) 08/01/2022 Office Visit Transplant Tony Rubalcava M.B., Sydnie, Mukund [address] [place] [phone] (Wo rk) 08/01/2022 Clinical Support Transplant Tony Rubalcava M.B., Sydnie, Mukund [address] [place] [address] [phone] (Wo rk) documented as of this encounter Procedures Procedure Name Priority Date/Time Associated Comments Diagnosis HC AV FISTULA STENT RAD - Routine 12/15/2020 1:20 Thrombosis Resu lts for this THROMBECTOMY (most inpatients PM CDT Vascular Graft procedure are in and all Subsequent the results outpatients) Thrombosis Due To section. Vascular Prosthetic Devices Implants And Grafts Subsequent IR DIALYSIS / HIGH RAD - Routine 12/15/2020 1:20 Thrombosis Resul ts for this FLOW CATHETER (most inpatients PM CDT Vascular Graft procedur e are in REMOVAL and all Subsequent the results outpatients) section. documented in this encounter Results IR Dialysis / High Flow Catheter Removal (12/15/2020 1:20 PM CDT) Anatomical Region Laterality Modality Body, Vascular Interventional RST LOS, Vascular N/A X-Ray Angiography Interventional ARZ LOS, Vascular Interventional FLA LOS Specimen (Source) Anatomical Collection Method Collection Time Re ceived Time Location / / Volume Laterality 12/15/2020 3:37 PM CDT Impressions 12/16/2020 10:49 AM CDT 1. 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 High-grade stenosis at the venous anastomosis treated with an 8 mm x 5 cm Viabahn stent. 2. ??Removal of tunneled left IJ dialysi s catheter. Narrative 12/16/2020 10:49 AM CDT EXAM: ??IR DIALYSIS FISTULA STENT RIGHT, IR DIALYSIS / HIGH FLOW CATHETER REMOVAL COMPARISON: ??60-year-old female with hi story of end-stage renal disease presents with a thrombosed right upper extremity graft. FINDINGS: ??The right upper extremity wa s prepped and draped in routine sterile fashion. Initial ultrasound evaluation d emonstrated a patent arterial anastomosis and extensive clot throughou t the graft. 1% lidocaine was used as local anesthetic. Under ultrasound aileen nce, the graft was accessed in antegrade fashion just above the arterial anastomo sis. A 0.018 wire was advanced and the needle exchanged for a micropuncture she ath. A fistulogram showed extensive clot throughout the graft. A Glidewire was ad vanced and the micropuncture sheath exchanged for a 6-Surinamese vascular sheath . The patient was systemically heparinized. Next, an AngioJet catheter was used to pulse-spray a total of 70 mL of 10 mg of t-PA diluted in 100 mL of sa line. This was left to dwell for 20 minutes. AngioJet pharmacomechanical thr ombectomy was then performed. The entire graft, including the venous anastomosis, was dilated using a 6 mm balloon. Follow-up fistulogram demonstrated compl ete resolution of the clot, however, there was high-grade stenosis at the maeve ous anastomosis. The 6-Surinamese sheath was upsized to a 7-Surinamese sheath. An 8 mm x 5 cm Viabahn stent was deployed across the venous anastomosis. The stent was di lated with a 7 mm balloon. Follow-up fistulogram showed resolution of the maeve ous anastomotic stenosis with excellent angiographic results. The central veins were patent. The sheath was removed and hemostasis achieved with temporary purse -string suture. The patient's tunneled left IJ dialysis catheter was then remov ed entirely. Sterile dressing applied. No immediate complication. PREPROCEDURE: Patient seen, evaluated, [...] The patient was continuousl y monitored with real-time oxygen saturation, heart rate, ECG rhythm strip , and blood pressure throughout administration of the sedation and perfo rmance of the procedure. The total intraprocedural sedation time was 101 mi nutes. Procedure Note Jatin Mcconnell M.D. - 12/16/2020Fo rmatting of this note might be different from the original. EXAM: IR DIALYSIS FISTULA STENT RIGHT, I R DIALYSIS / HIGH FLOW CATHETER REMOVAL COMPARISON: 60-year-old female with hist ory of end-stage renal disease presents with a thrombosed right upper extremity graft. FINDINGS: The right upper extremity was prepped and draped in routine sterile fashion. Initial ultrasound evaluation d emonstrated a patent arterial anastomosis and extensive clot throughou t the graft. 1% lidocaine was used as local anesthetic. Under ultrasound aileen nce, the graft was accessed in antegrade fashion just above the arterial anastomo sis. A 0.018 wire was advanced and the needle exchanged for a micropuncture she ath. A fistulogram showed extensive clot throughout the graft. A Glidewire was ad vanced and the micropuncture sheath exchanged for a 6-Surinamese vascular sheath . The patient was systemically heparinized. Next, an AngioJet catheter was used to pulse-spray a total of 70 mL of 10 mg of t-PA diluted in 100 mL of sa line. This was left to dwell for 20 minutes. AngioJet pharmacomechanical thr ombectomy was then performed. The entire graft, including the venous anastomosis, was dilated using a 6 mm balloon. Follow-up fistulogram demonstrated compl ete resolution of the clot, however, there was high-grade stenosis at the maeve ous anastomosis. The 6-Surinamese sheath was upsized to a 7-Surinamese sheath. An 8 mm x 5 cm Viabahn stent was deployed across the venous anastomosis. The stent was di lated with a 7 mm balloon. Follow-up fistulogram showed resolution of the maeve ous anastomotic stenosis with excellent angiographic results. The central veins were patent. The sheath was removed and hemostasis achieved with temporary purse -string suture. The patient's tunneled left IJ dialysis catheter was then remov ed entirely. Sterile dressing applied. No immediate complication. PREPROCEDURE: Patient seen, evaluated, [...] The patient was continuousl y monitored with real-time oxygen saturation, heart rate, ECG rhythm strip , and blood pressure throughout administration of the sedation and perfo rmance of the procedure. The total intraprocedural sedation time was 101 mi nutes. IMPRESSION: 1. 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 High-grade stenosis at the venous anastomosis treated with an 8 mm x 5 cm Viabahn stent. 2. Removal of tunneled left IJ dialysis catheter. Lakshmi Lynn APRN C.N.P. IMG IR PROCEDURES IR Dialysis Fistula Stent Right (12/15/2020 1:20 PM CDT) Anatomical Region Laterality Modality Body, Vascular Interventional RST LOS, Vascular Right X-Ray Angiography Interventional ARZ LOS, Vascular Interventional FLA LOS Specimen (Source) Anatomical Collection Method Collection Time Re ceived Time Location / / Volume Laterality 12/15/2020 3:37 PM CDT Impressions 12/16/2020 10:49 AM CDT 1. 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 High-grade stenosis at the venous anastomosis treated with an 8 mm x 5 cm Viabahn stent. 2. ??Removal of tunneled left IJ dialysi s catheter. Narrative 12/16/2020 10:49 AM CDT EXAM: ??IR DIALYSIS FISTULA STENT RIGHT, IR DIALYSIS / HIGH FLOW CATHETER REMOVAL COMPARISON: ??60-year-old female with hi story of end-stage renal disease presents with a thrombosed right upper extremity graft. FINDINGS: ??The right upper extremity wa s prepped and draped in routine sterile fashion. Initial ultrasound evaluation d emonstrated a patent arterial anastomosis and extensive clot throughou t the graft. 1% lidocaine was used as local anesthetic. Under ultrasound aileen nce, the graft was accessed in antegrade fashion just above the arterial anastomo sis. A 0.018 wire was advanced and the needle exchanged for a micropuncture she ath. A fistulogram showed extensive clot throughout the graft. A Glidewire was ad vanced and the micropuncture sheath exchanged for a 6-Surinamese vascular sheath . The patient was systemically heparinized. Next, an AngioJet catheter was used to pulse-spray a total of 70 mL of 10 mg of t-PA diluted in 100 mL of sa line. This was left to dwell for 20 minutes. AngioJet pharmacomechanical thr ombectomy was then performed. The entire graft, including the venous anastomosis, was dilated using a 6 mm balloon. Follow-up fistulogram demonstrated compl ete resolution of the clot, however, there was high-grade stenosis at the maeve ous anastomosis. The 6-Surinamese sheath was upsized to a 7-Surinamese sheath. An 8 mm x 5 cm Viabahn stent was deployed across the venous anastomosis. The stent was di lated with a 7 mm balloon. Follow-up fistulogram showed resolution of the maeve ous anastomotic stenosis with excellent angiographic results. The central veins were patent. The sheath was removed and hemostasis achieved with temporary purse -string suture. The patient's tunneled left IJ dialysis catheter was then remov ed entirely. Sterile dressing applied. No immediate complication. PREPROCEDURE: Patient seen, evaluated, [...] The patient was continuousl y monitored with real-time oxygen saturation, heart rate, ECG rhythm strip , and blood pressure throughout administration of the sedation and perfo rmance of the procedure. The total intraprocedural sedation time was 101 mi nutes. Procedure Note Jatin Mcconnell M.D. - 12/16/2020Fo rmatting of this note might be different from the original. EXAM: IR DIALYSIS FISTULA STENT RIGHT, I R DIALYSIS / HIGH FLOW CATHETER REMOVAL COMPARISON: 60-year-old female with hist ory of end-stage renal disease presents with a thrombosed right upper extremity graft. FINDINGS: The right upper extremity was prepped and draped in routine sterile fashion. Initial ultrasound evaluation d emonstrated a patent arterial anastomosis and extensive clot throughou t the graft. 1% lidocaine was used as local anesthetic. Under ultrasound aileen nce, the graft was accessed in antegrade fashion just above the arterial anastomo sis. A 0.018 wire was advanced and the needle exchanged for a micropuncture she ath. A fistulogram showed extensive clot throughout the graft. A Glidewire was ad vanced and the micropuncture sheath exchanged for a 6-Surinamese vascular sheath . The patient was systemically heparinized. Next, an AngioJet catheter was used to pulse-spray a total of 70 mL of 10 mg of t-PA diluted in 100 mL of sa line. This was left to dwell for 20 minutes. AngioJet pharmacomechanical thr ombectomy was then performed. The entire graft, including the venous anastomosis, was dilated using a 6 mm balloon. Follow-up fistulogram demonstrated compl ete resolution of the clot, however, there was high-grade stenosis at the maeve ous anastomosis. The 6-Surinamese sheath was upsized to a 7-Surinamese sheath. An 8 mm x 5 cm Viabahn stent was deployed across the venous anastomosis. The stent was di lated with a 7 mm balloon. Follow-up fistulogram showed resolution of the maeve ous anastomotic stenosis with excellent angiographic results. The central veins were patent. The sheath was removed and hemostasis achieved with temporary purse -string suture. The patient's tunneled left IJ dialysis catheter was then remov ed entirely. Sterile dressing applied. No immediate complication. PREPROCEDURE: Patient seen, evaluated, [...] The patient was continuousl y monitored with real-time oxygen saturation, heart rate, ECG rhythm strip , and blood pressure throughout administration of the sedation and perfo rmance of the procedure. The total intraprocedural sedation time was 101 mi nutes. IMPRESSION: 1. 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 High-grade stenosis at the venous anastomosis treated with an 8 mm x 5 cm Viabahn stent. 2. Removal of tunneled left IJ dialysis catheter. Tete Dolan APRN IR PROCEDURES documented in this encounter Visit Diagnoses Diagnosis Thrombosis Vascular Graft Subsequent documented in this encounter Administered Medications Inactive Administered Medications - up to 3 most recent administrations Medication Order MAR Action Action Date Dose Rate Site fentaNYL injection 25 mcg Given 12/15/2020 1:05 PM CDT 50 mcg (SUBLIMAZE) 25 mcg, intravenous, Every 2 min PRN, sedation, or pain before and during sedation procedure, Starting on Sun12/15/20 at 1118, Intraprocedure (RAD), Administer over 1 minute immediately prior to the procedure. May repeat every 2 minutes to a maximum of 200 mcg, until pain score of 3 or less, or until the patient meets the pain comfort goal. Do not give if respiratory rate is less than 8 breaths/minute Given 12/15/2020 12:46 PM CDT 25 mcg Given 12/15/2020 12:27 PM CDT 25 mcg flumazeniL injection 0.2 mg (ROMAZICON) 0.2 mg, intravenous, Once as needed, rev ersal, Starting on Sun12/15/20 at 1118, For 1 dose, Intraprocedure (RAD), Administer once if patient has a RASS score of -4, -5 and has a respiratory rate less than 8 breaths/minute. heparin (porcine) 1,000 unit/mL injectio n Given 12/15/2020 11:37 AM 4,000 Units Code/trauma/sedation medication, Starting CDT on Sun12/15/20 at 1137 iohexoL 300 mg iodine/mL solution (OMNIP AQUE) Given 12/15/2020 1:18 PM CDT 65 mL Code/trauma/sedation medication, Starting on Sun12/15/20 at 1318 lidocaine-sodium bicarbonate (buffered) Given 12/15/2020 1:18 PM CDT 10 mL 0.9%-8.4% injection infiltration, Code/trauma/sedation medication, Starting on Sun12/15/20 at 1318 midazolam (PF) injection 0.5 mg (VERSED) 0.5 mg, intravenous, Once as needed, sed ation, Starting on Sun12/15/20 at 1118, For 1 dose, Intraprocedure (RAD) midazolam (PF) injection 0.5 mg (VERSED) Given 12/15/2020 12:46 PM CDT 0.5 mg 0.5 mg, intravenous, Every 2 min PRN, sedation, Starting on Sun12/15/20 at 1118, Intraprocedure (RAD), If RASS greater than -3, give additional dose(s) of 0.5 mg IV every 2 minutes for a maximum of 5 mg. Do not give if respiratory rate is less than 8 breaths/minute. Given 12/15/2020 12:27 PM CDT 0.5 mg Given 12/15/2020 12:13 PM CDT 0.5 mg NaCl 0.9% infusion 20 mL/hr, intravenous, Once as needed, t o keep vein open, Starting on Sun12/15/20 at 1118, For 1 dose, Intraprocedure (RAD) naloxone injection 0.2 mg (NARCAN) 0.2 mg, intravenous, Once as needed, respiratory depre ssion, Starting on Sun12/15/20 at 1118, For 1 dose, Intraproced ure (RAD), Administer once if patient has a RASS score of -4, -5 and has a respiratory rate less t simpson 8 breaths/minute. documented in this encounter Active and Recently Administered Medications Times are shown in CDT. Scheduled Medication Order 12/13/2020 12/14/2020 12/15/2020 alteplase 10 mg in NaCl 0.9% IVPB (ACTIVASE) 1115 (Due) 10 mg, intravenous, Once, On Sun12/15/20 at 1115, For 1 dose, Intraprocedure (RAD) PRN Medication Order 12/13/2020 12/14/2020 12/15/2020 fentaNYL injection 25 mcg (SUBLIMAZE) 1128 (Given - Provider: Shannon Soto R.N.)1144 (Given - Provider: Shannon Soto R.N.)1203 (Given - Provider: Shannon Soto R.N.)1213 (Given - Provider: Shannon Soto R.N.)1227 (Given - Provid er: Shannon Soto R.N.) 25 mcg, intravenous, Every 2 min PRN, se dation, or pain before and during sedation procedure, Starting on 12/15/20 at 1118, Intraprocedure (RAD), Administer over 1 minute immediately prior to the pro 1246 (Given - Provider: Shannon Soto R.N.)1305 (Given - Provider: Shannon oSto R.N.) cedure. May repeat every 2 minutes to a maximum of 200 mcg, until pain score of 3 or less, or until the patient meets the pain comfort goal. Do not give if respiratory rate is less than 8 breaths/minute flumazeniL injection 0.2 mg (ROMAZICON) 0.2 mg, intravenous, Once as needed, rev ersal, Starting on 12/15/20 at 1118, For 1 dose, Intraprocedure (RAD), Administer once if patient has a RASS score of -4, -5 and has a respiratory rate less than 8 breaths/minute. heparin (porcine) 1,000 unit/mL injection (COMPLETED) 1137 (Given - Provider: Shannon Soto R.N.) Code/trauma/sedation medication, Starting on 12/15/20 at 1137 iohexoL 300 mg iodine/mL solution (OMNIPAQUE) (COMPLETED) 1318 (Given - Provider: Jatin Mcconnell M.D.) Code/trauma/sedation medication, Starting on 12/15/20 at 1318 lidocaine-sodium bicarbonate (buffered) 0.9%-8.4% injection (COM PLETED) 1318 (Given - Provider: Jatin Mcconnell M.D.) infiltration, Code/trauma/sedation medication, Starting on W ed 12/15/20 at 1318 midazolam (PF) injection 0.5 mg (VERSED) 0.5 mg, intravenous, Once as needed, sed ation, Starting on 12/15/20 at 1118, For 1 dose, Intraprocedure (RAD) midazolam (PF) injection 0.5 mg (VERSED) 1128 (Given - Provider: Shannon Soto R.N.)1144 (Given - Provider: Shannon Soto R.N.)1203 (Given - Provider: Shannon Soto R.N.)1213 (Given - Provider: Shannon Soto R.N.)1227 (Given - Provider: Shannon Soto R.N.) 0.5 mg, intravenous, Every 2 min PRN, se dation, Starting on Sun12/15/20 at 1118, Intraprocedure (RAD), If RASS greater than -3, give additional dose(s) of 0.5 mg IV every 2 minutes for a maximum of 5 mg 1246 (Given - Provider: Shannon Soto R.N.) . Do not give if respiratory rate is less than 8 breaths/minute. NaCl 0.9% infusion 20 mL/hr, intravenous, at 20 mL/hr, Once as needed, to keep vein open, Starting on Sun12/15/20 at 1118, For 1 dose, Intraprocedure (RAD) naloxone injection 0.2 mg (NARCAN) 0.2 mg, intravenous, Once as needed, res piratory depression, Starting on Sun12/15/20 at 1118, For 1 dose, Intraprocedure (RAD), Administer once if patient has a RASS score of -4, -5 and has a respiratory rate less than 8 breaths/minute. documented in this encounter Additional Health Concerns Assessment Noted Time PHQ-9 Depression Total Score: 4 01/30/2019 12:13 PM CD T documented as of this encounter Care Teams Data Processing Consultant Relationship Specialty Start Date End Date Elsewhere, Pcp PCP - General 09/17/19 documented as of this encounter
--- OUTSIDE RECORDS SUMMARY | 2022-05-25 13:10 | XMS_ITS | Encounter Summary ---
:1960 Author Organization [facility] Address [address] [place] [address] Care Team Providers Name Role Phone Elsewhere, Pcp Primary Care Provider Unavailable Reason for Visit Outpatient (Routine) - Closed Specialty Diagnoses / Procedures Referred By Contact Refer red To Contact Radiology Diagnoses Thrombosis Vascular Graft Subsequent Chronic Failure Renal End Stage Renal Disease Dialysis Dependent (HCC) Zaire Candelario APRN, C.N.P. [facility] Procedures IR Dialysis / High Flow Catheter Placement IR Dialysis Fistula Declot Right [address] [place] [address] Referral ID Status Reason Start Date Expiration Date Visits Requ ested Visits Authorized [id number] Closed 12/10/2020 12/10/2021 1 1 Encounter Details Date Type Department Care Team Description 12/10/2020 Hospital Encounter Department of Zaire Candelario APRN, C.N.P. [address] [place] [address] Thrombosis Vascular Graft Subsequent; Radiology in Jatin Mcconnell M.D. [address] [place] [phone] Chronic Failure Renal End Stage Renal Di sease Dialysis Dependent (HCC) Saji Hernandez Neil J, M.D. [address] [place] [address] [phone] Social History Tobacco Use Types Packs/Day Years [...] How often do you attend sabianist or cheondoism 1 to 4 times per year 12/23/2021 [...] Sign Reading Time Taken Comments Blood Pressure 184/102 12/10/2020 3:25 PM CDT Pulse 65 12/10/2020 3:30 PM CDT Temperature 36.7 ??C (98.1 ??F) 12/10/2020 1:29 PM CDT Respiratory Rate 10 12/10/2020 3:30 PM CDT Oxygen Saturation 100% 12/10/2020 3:30 PM CDT Inhaled Oxygen Concentration - - Weight 93.9 kg (207 lb 0.2 oz) 12/10/2020 1:29 PM CDT Height - - Body Mass Index 34.45 10/14/2020 8:11 AM CRIMINAL LEGAL ASSISTANT documented in this encounter Discharge Instructions AttachmentsThe following attachments cannot be sent through Care Everywhere. Catheter Care Guide Until You Meet With Your Dialysis Care Team (Nepali) documented in this encounter Medications at Time [...] 1 tablet (5 mg 90 tablet 3 2 04/202002/28/2021 5 mg tablet total) by mouth daily. [...] documented as of this encounter Procedure Notes Gómez Lennon M.D. - 12/10/2020 3:26 PM CDT PATIENT DISPOSITION AND INSTRUCTIONS Return to Outpatient Unit for recovery. Discharge patient when discharge criteria met. Follow up diagnostic ultrasound of fistula to assess the area of pain/redness and swelling near the anastomosis. PROCEDURE PERFORMED AND FINDINGS IR Dialysis / High Flow Catheter Placement. See radiology report for additional details. ANESTHESIA Moderate Sedation. and Local Anesthesia. ESTIMATED BLOOD LOSS None PRIMARY PROCEDURALIST Surgeon(s): Jatin Mcconnell M.D. ASSISTANTS Gómez Lennon M.D. documented in this encounter Plan of Treatment Upcoming Encounters Date Type Specialty Care Team Description 06/01/2022 Telemedicine Pharmacy An Nicholas APRN, C.N.P., D.N.P., M.S.N. [address] [place] [phone] (Nicolas wen) 07/31/2022 Lab Laboratory Medicine Tony Rubalcava M. B., Ch.Maurice, M.Michelle. [address] [place] [phone] (Nicolas wen) 07/31/2022 Lab Laboratory Medicine Tony Rubalcava M. B., Mukund [place] [address] [place] [phone] (Wo rk) 07/31/2022 Office Visit Transplant Tony Rubalcava M.B., Mukund [place] [address] [place] [phone] (Wo rk) 07/31/2022 Appointment Radiology Tony Rubalcava M.B., Mukund [place] [address] [place] [phone] (Wo behzad) 08/01/2022 Office Visit Transplant Tony Rubalcava M.B., Mukund [place] [address] [place] [phone] (Nicolas wen) 08/01/2022 Clinical Support Transplant Tony Rubalcava M.B., Mukund [place] [address] [place] [phone] (Wo behzad) documented as of this encounter Procedures Procedure Name Priority Date/Time Associated Comments Diagnosis US HEMODIALYSIS RAD - Routine 12/10/2020 4:21 Results for this FISTULA-GRAFT RIGHT (most inpatients PM CDT proc edure are in and all the results outpatients) section. IR DIALYSIS / HIGH RAD - Routine 12/10/2020 3:22 Thrombosis Resul ts for this FLOW CATHETER (most inpatients PM CDT Vascular Graft procedur e are in PLACEMENT and all Subsequent the results outpatients) Chronic Failure section. Renal End Stage Renal Disease Dialysis Dependent (HCC) ADULT OXYGEN Routine 12/10/2020 2:45 THERAPY PM CDT documented in this encounter Results US Hemodialysis Fistula-Graft Right (12/10/2020 4:21 PM CDT) Anatomical Region Laterality Modality Body, Ultrasound RST LOS, Ultrasound ARZ LOS, Ultrasound FLA Right Ultrasound LOS, Procedural Specimen (Source) Anatomical Collection Method Collection Time Re ceived Time Location / / Volume Laterality 12/10/2020 4:23 PM CDT Impressions 12/10/2020 4:32 PM CDT Right brachial-axillary dialysis graft is completely thrombosed, new since 07/15/2019. Discussed with Lakshmi tamayo ([id number]) at 1631 on 12/10/20. Narrative 12/10/2020 4:32 PM CDT EXAM: US HEMODIALYSIS FISTULA-GRAFT RIGHT Exam performed with color and spectral D oppler analysis. COMPARISON: Right upper extremity dialys is fistula ultrasound 07/15/2019 FINDINGS: Location: Brachial artery to axillary ve in fistula. Arterial: Antegrade flow distal to the f istula. Anastomosis: Thrombosed from the arteria l anastomosis through the venous anastomosis. Outflow vein: Axillary vein is patent do wnstream of the anastomosis. Central veins: Patent without stenosis. Branches: Not applicable Mean average flow volume: 0 mL/min. <500 ml/min = low flow 500-800 ml/min = borderline >800 ml/min = normal ?? Procedure Note Twin Winston M.D. - 12/10/2020Forma tting of this note might be different from the original. EXAM: US HEMODIALYSIS FISTULA-GRAFT RIGH T Exam performed with color and spectral D oppler analysis. COMPARISON: Right upper extremity dialys is fistula ultrasound 07/15/2019 FINDINGS: Location: Brachial artery to axillary ve in fistula. Arterial: Antegrade flow distal to the f istula. Anastomosis: Thrombosed from the arteria l anastomosis through the venous anastomosis. Outflow vein: Axillary vein is patent do wnstream of the anastomosis. Central veins: Patent without stenosis. Branches: Not applicable Mean average flow volume: 0 mL/min. <500 ml/min = low flow 500-800 ml/min = borderline >800 ml/min = normal IMPRESSION: Right brachial-axillary dialysis graft i s completely thrombosed, new since 07/15/2019. Discussed with Lakshmi tamayo ([id number]) at 1631 on 12/10/20. Lakshmi Lynn APRN, C.N.P. IMG US PROCEDURES IR Dialysis / High Flow Catheter Placement (12/10/2020 3:22 PM CDT) Anatomical Region Laterality Modality Body, Vascular Interventional RST LOS, Vascular N/A X-Ray Angiography Interventional ARZ LOS, Vascular Interventional FLA LOS Specimen (Source) Anatomical Collection Method Collection Time Re ceived Time Location / / Volume Laterality 12/10/2020 7:00 PM CDT Impressions 12/10/2020 7:06 PM CDT Placement of a tunneled left IJ dialysis catheter. Tip at the SVC/RA junction. Ready for use. EP Narrative 12/10/2020 7:06 PM CDT EXAM: IR DIALYSIS / HIGH FLOW CATHETER PLACEMENT CLINICAL HISTORY: 60-year-old female wit h history of end-stage renal disease presents with thrombosed right upper ext remity graft. Patient presents with increasing swelling near the right antec ubital fossa concerning for hematoma. Tunneled dialysis catheter will be place d at this time due to increase concern for bleeding with declot. TECHNIQUE: ?? Patient was prepared and d raped in the standard sterile fashion over the left ??upper chest and low neck . 1% lidocaine used for local anesthesia. Ultrasound was used to demonstrate paten cy and compressibility of the left IJ vein, and under ultrasound guidance, the vein was accessed. A picture was created and stored. Using Seldinger tech nique, a guidewire was advanced into the IVC. Over this, a 5F, 20.5cm dilator was advanced and used to approximate the length of the anticipated catheter. The wire was removed, and a saline-filled syringe attached to a one-way stop-cock was placed on the dilator while attention was turned to development of a chest wall tunnel. A small incision was made on the anterior left chest and the 14.5F, 28 cm dialysis catheter was tunneled from the chest incision to the venotomy site. A guidewire was readvanced into the IVC and the tract wa s serially dilated before placing a peel-away sheath. The catheter was advan arin through the sheath and the sheath was removed. The tip was adjusted such t hat it sits at the SVC/RA junction. Both lumen flush and aspirate easily and were capped. The venotomy site was closed with a single buried 4-0 Vicryl stitch, and the catheter was sutured to the skin with 2-0 Prolene. Each lumen was flushed with 4% sodium citrate solution. The catheter is ready for use. No immediate complications. For placement of this [...] procedure. The total intra-procedural sedation time was: 13 m inutes. Procedure Note Jatin Mcconnell M.D. - 12/10/2020Fo rmatting of this note might be different from the original. EXAM: IR DIALYSIS / HIGH FLOW CATHETER P LACEMENT CLINICAL HISTORY: 60-year-old female wit h history of end-stage renal disease presents with thrombosed right upper ext remity graft. Patient presents with increasing swelling near the right antec ubital fossa concerning for hematoma. Tunneled dialysis catheter will be place d at this time due to increase concern for bleeding with declot. TECHNIQUE: Patient was prepared and drap ed in the standard sterile fashion over the left upper chest and low neck. 1% lidocaine used for local anesthesia. Ultrasound was used to demonstrate paten cy and compressibility of the left IJ vein, and under ultrasound guidance, the vein was accessed. A picture was created and stored. Using Seldinger tech nique, a guidewire was advanced into the IVC. Over this, a 5F, 20.5cm dilator was advanced and used to approximate the length of the anticipated catheter. The wire was removed, and a saline-filled syringe attached to a one-way stop-cock was placed on the dilator while attention was turned to development of a chest wall tunnel. A small incision was made on the anterior left chest and the 14.5F, 28 cm dialysis catheter was tunneled from the chest incision to the venotomy site. A guidewire was readvanced into the IVC and the tract wa s serially dilated before placing a peel-away sheath. The catheter was advan arin through the sheath and the sheath was removed. The tip was adjusted such t hat it sits at the SVC/RA junction. Both lumen flush and aspirate easily and were capped. The venotomy site was closed with a single buried 4-0 Vicryl stitch, and the catheter was sutured to the skin with 2-0 Prolene. Each lumen was flushed with 4% sodium citrate solution. The catheter is ready for use. No immediate complications. For placement of this [...] procedure. The total intra-procedural sedation time was: 13 m inutes. IMPRESSION: Placement of a tunneled left IJ dialysis catheter. Tip at the SVC/RA junction. Ready for use. EP Zaire Candelario APRN, C.N.P. IMG IR PROCEDURES documented in this encounter Visit Diagnoses Diagnosis Thrombosis Vascular Graft Subsequent Chronic Failure Renal End Stage Renal Di sease Dialysis Dependent (HCC) documented in this encounter Administered Medications Inactive Administered Medications - up to 3 most recent administrations Medication Order MAR Action Action Date Dose Rate Site fentaNYL injection 25 mcg Given 12/10/2020 3:14 PM CDT 25 mcg (SUBLIMAZE) 25 mcg, intravenous, Every 2 min PRN, sedation, or pain before and during sedation procedure, Starting on Sun12/10/20 at 1444, Intraprocedure (RAD), Administer over 1 minute immediately prior to the procedure. May repeat every 2 minutes to a maximum of 200 mcg, until pain score of 3 or less, or until the patient meets the pain comfort goal. Do not give if respiratory rate is less than 8 breaths/minute Given 12/10/2020 3:09 PM CDT 25 mcg flumazeniL injection 0.2 mg (ROMAZICON) 0.2 mg, intravenous, Once as needed, rev ersal, Starting on Sun12/10/20 at 1444, For 1 dose, Intraprocedure (RAD), Administer once if patient has a RASS score of -4, -5 and has a respiratory rate less than 8 breaths/minute. lactated ringers New Bag 12/10/2020 3:10 PM CDT 20 mL/hr 20 mL/hr 20 mL/hr, intravenous, Once as needed, to keep vein open, Starting on Sun12/10/20 at 1444, For 1 dose, Intraprocedure (RAD) lidocaine-sodium bicarbonate (buffered) Given 12/10/2020 3:18 PM CDT 10 mL 0.9%-8.4% injection infiltration, Code/trauma/sedation medication, Starting on Sun12/10/20 at 1518 midazolam (PF) injection 0.25 mg (VERSED ) 0.25 mg, intravenous, Every 2 min PRN, s edation, RASS -2, Starting on Sun12/10/20 at 1444, Intraprocedure (RAD), May repea t every 2 minutes to a maximum of 5 mg. Do not give if respiratory rate is less than 8 breaths/mi nute. midazolam (PF) injection 0.5 mg (VERSED) 0.5 mg, intravenous, Once as needed, sed ation, Starting on Sun12/10/20 at 1444, For 1 dose, Intraprocedure (RAD) midazolam (PF) injection 0.5 mg (VERSED) Given 12/10/2020 3:17 PM CDT 0.5 mg 0.5 mg, intravenous, Every 2 min PRN, sedation, RASS -1, Starting on Sun12/10/20 at 1444, Intraprocedure (RAD), May repeat every 2 minutes for a maximum of 5 mg. Do not give if respiratory rate is less than 8 breaths/minute. Given 12/10/2020 3:09 PM CDT 0.5 mg midazolam (PF) injection 1 mg (VERSED) 1 mg, intravenous, Every 2 min PRN, dustin tion, RASS 0, Starting on Sun12/10/20 at 1444, Intraprocedure (RAD), May repeat e very 2 minutes for a maximum of 5 mg. Do not give if respiratory rate is less than 8 breaths/mi nute. naloxone injection 0.2 mg (NARCAN) 0.2 mg, intravenous, Once as needed, respiratory depre ssion, Starting on Sun12/10/20 at 1444, For 1 dose, Intraproced ure (RAD), Administer once if patient has a RASS score of -4, -5 and has a respiratory rate less t simpson 8 breaths/minute. sodium citrate injection Given 12/10/2020 3:19 PM CDT 6 mL Code/trauma/sedation medication, Starting on Sun12/10/20 at 1519 documented in this encounter Active and Recently Administered Medications Times are shown in CDT. PRN Medication Order 12/08/2020 12/09/2020 12/10/2020 fentaNYL injection 25 mcg (SUBLIMAZE) 1509 (Given - Provider: Radha Landin R.N.)1514 (Given - Provider: Radha Landin R.N.) 25 mcg, intravenous, Every 2 min PRN, se dation, or pain before and during sedation procedure, Starting on Sun12/10/20 at 1444, Intraprocedure (RAD), Administer over 1 minute immediately [...] Once as needed, rev ersal, Starting on Sun12/10/20 at 1444, For 1 dose, Intraprocedure (RAD), Administer once if patient has a RASS score of -4, -5 and has a respiratory rate less than 8 breaths/minute. lactated ringers (COMPLETED) 151 0 (New Bag - Provider: Radha Landin R.N.)1523 (Stopped - Provider: Radha Landin R.N.) 20 mL/hr, intravenous, Once as needed, t o keep vein open, Starting on Sun12/10/20 at 1444, For 1 dose, Intraprocedure (RAD) lidocaine-sodium bicarbonate (buffered) 0.9%-8.4% injection (COM PLETED) 1518 (Given - Provider: Jatin Mcconnell M.D.) infiltration, Code/trauma/sedation medication, Starting on 12/10/20 at 1518 midazolam (PF) injection 0.25 mg (VERSED) 0.25 mg, intravenous, Every 2 min PRN, s edation, RASS -2, Starting on Sun12/10/20 at 1444, Intraprocedure (RAD), May repeat every 2 minutes to a maximum of 5 mg. Do not give if respiratory rate is less than 8 breaths/minute. midazolam (PF) injection 0.5 mg (VERSED) 0.5 mg, intravenous, Once as needed, sed ation, Starting on Sun12/10/20 at 1444, For 1 dose, Intraprocedure (RAD) midazolam (PF) injection 0.5 mg (VERSED) 1509 (Given - Provider: Radha Landin R.N.)1517 (Given - Provider: Radha Landin R.N.) 0.5 mg, intravenous, Every 2 min PRN, se dation, RASS -1, Starting on Sun12/10/20 at 1444, Intraprocedure (RAD), May repeat every 2 minutes for a maximum of 5 mg. Do not give if respiratory rate is less than 8 breaths/minute. midazolam (PF) injection 1 mg (VERSED) 1 mg, intravenous, Every 2 min PRN, dustin tion, RASS 0, Starting on Sun12/10/20 at 1444, Intraprocedure (RAD), May repeat every 2 minutes for a maximum of 5 mg. Do not give if respiratory rate is less than 8 breaths/minute. naloxone injection 0.2 mg (NARCAN) 0.2 mg, intravenous, Once as needed, res piratory depression, Starting on Sun12/10/20 at 1444, For 1 dose, Intraprocedure (RAD), Administer once if patient has a RASS score of -4, -5 and has a respiratory rate less than 8 breaths/minute. sodium citrate injection (COMPLETED) 1519 (Given - Provider: Jatin Mcconnell M.D.) Code/trauma/sedation medication, Starting on Sun12/10/20 at 1519 documented in this encounter Additional Health Concerns Assessment Noted Time PHQ-9 Depression Total Score: 4 01/30/2019 12:13 PM CD T documented as of this encounter Care Teams Program Aide Relationship Specialty Start Date End Date Elsewhere, Pcp PCP - General 09/17/19 documented as of this encounter
--- OUTSIDE RECORDS SUMMARY | 2022-05-25 13:10 | XMS_ITS | Encounter Summary ---
:1960 Author Organization [facility] Address [address] [place] [address] Care Team Providers Name Role Phone Elsewhere, Pcp Primary Care Provider Unavailable Encounter Details Date Type Department Care Team Description 12/09/2020 Hospital Encounter Department of Laboratory Geraldo Spear, Medicine in [address] [phone] Social History Tobacco Use Types Packs/Day Years [...] How often do you attend anabaptist or presybeterian 1 to 4 times per [...] Nicholas APRN, C.N.P., D.N.P., M.S.N. [address] [place] [address] [phone] (Wo rk) 07/31/2022 Lab Laboratory Medicine Tony Rubalcava M. B., Ch.B., M.D. [address] [place] [address] [phone] (Wo rk) 07/31/2022 Lab Laboratory Medicine Tony Rubalcava M. B., Ch.B., M.D. [address] [place] [address] [phone] (Wo rk) 07/31/2022 Office Visit Transplant Tony Rubalcava M.B., Ch.B., MElvia. [address] [place] [address] [phone] (Wo rk) 07/31/2022 Appointment Radiology Tony Rubalcava M.B., Sydnie, Mukund [address] [place] [address] [phone] (Wo rk) 08/01/2022 Office Visit Transplant Tony Rubalcava M.B., Sydnie, Mukund [address] [place] [address] [phone] (Wo rk) 08/01/2022 Clinical Support Transplant Tony Rubalcava M.B., Sydnie, Mukund [address] [place] [address] [phone] (Wo rk) documented as of this encounter Visit Diagnoses Not on filedocumented in this encounter Additional Health Concerns Assessment Noted Time PHQ-9 Depression Total Score: 4 01/30/2019 12:13 PM CD T documented as of this encounter Care Teams Prep Manager Relationship Specialty Start Date End Date Elsewhere, Pcp PCP - General 09/17/19 documented as of this encounter
--- OUTSIDE RECORDS SUMMARY | 2022-05-25 13:10 | XMS_ITS | Encounter Summary ---
:1960 Author Organization [facility] Address [address] [place] [address] Care Team Providers Name Role Phone Elsewhere, Pcp Primary Care Provider Unavailable Reason for Referral Outpatient (Routine) - Closed Specialty Diagnoses / Procedures Referred By Contact Refer red To Contact Radiology Diagnoses Thrombosis Vascular Graft Subsequent Lakshmi Lynn APRN, [facility] Procedures IR Dialysis Fistula Stent Right IR Dialysis Fistulagram Right C.N.P. [address] [place], [place] [address] Referral ID Status Reason Start Date Expiration Date Visits Requ ested Visits Authorized [id number] Closed 12/10/2020 12/10/2021 1 1 Encounter Details Date Type Department Care Team Description 12/10/2020 Orders Only Department of Lakshmi Lynn, Thrombosis Vascular Radiology, [facility] CHRISTOPHER, C.N. P. Graft Subsequent Building, in [place], [address] [place] [address] (Primary Dx) [place] [address] [place] [phone] [place], [place] [phone] (Work) [phone] Social History Tobacco Use Types Packs/Day Years [...] 12/23/2021 relatives? How often do you attend gnosticism or mandaen 1 to 4 times per year 12/23/2021 services? Do you belong to any clubs or organizations such No 12/23/2021 as gnosticism groups, unions, fraternal or athletic groups, or [...] An Nicholas APRN, C.N.P., D.N.P., M.S.N. [address] [place] [address] [phone] (Nicolas wen) 07/31/2022 Lab Laboratory Medicine Tony Rubalcava M. B., Ch.Maurice, M.D. [address] [place] [address] [phone] (Nicolas wen) 07/31/2022 Lab Laboratory Medicine Tony Rubalcava M. B., Sydnie, Mukund [address] [place] [phone] (Wo rk) 07/31/2022 Office Visit Transplant Tony Rubalcava M.B., Mukund [place] [address] [place] [address] [phone] (Wo rk) 07/31/2022 Appointment Radiology Tony Rubalcava M.B., Mukund [place] [address] [place] [address] [phone] (Wo rk) 08/01/2022 Office Visit Transplant Tony Rubalcava M.B., Sydnie, Mukund [address] [place] [address] [phone] (Wo rk) 08/01/2022 Clinical Support Transplant Tony Rubalcava M.B., Sydnie, Mukund [address] [place] [address] [phone] (Wo rk) documented as of this encounter Results IR Dialysis Fistula Stent Right (12/15/2020 1:20 [...] and the micropuncture sheath exchanged for a 6-Senegalese vascular sheath . The patient was systemically [...] stenosis at the maeve ous anastomosis. The 6-Senegalese sheath was upsized to a 7-Senegalese sheath. An 8 mm x 5 cm [...] and the micropuncture sheath exchanged for a 6-Senegalese vascular sheath . The patient was systemically [...] stenosis at the maeve ous anastomosis. The 6-Senegalese sheath was upsized to a 7-Senegalese sheath. An 8 mm x 5 cm [...] tunneled left IJ dialysis catheter. Lakshmi Lynn APRN, C.N.P. IMG IR PROCEDURES documented in this encounter Visit Diagnoses Diagnosis Thrombosis Vascular Graft Subsequent - P rimary Thrombosis Vascular Graft Subsequent documented in this encounter Additional Health Concerns Assessment Noted Time PHQ-9 Depression Total Score: 4 01/30/2019 12:13 PM CD T documented as of this encounter Care Teams Chemical Economist Relationship Specialty Start Date End Date Elsewhere, Pcp PCP - General 09/17/19 documented as of this encounter
--- OUTSIDE RECORDS SUMMARY | 2022-05-25 13:10 | XMS_ITS | Encounter Summary ---
:1960 Author Organization [facility] Address [address] [place] [address] Care Team Providers Name Role Phone Elsewhere, Pcp Primary Care Provider Unavailable Encounter Details Date Type Department Care Team Description 12/16/2020 Hospital Encounter Outpatient Procedure Kristopher Spear, Center in [place] [address] [facility] 200 [place] [phone] (Wo rk) Social History Tobacco Use Types [...] How often do you attend scientologist or protestant 1 to 4 times per [...] Sign Reading Time Taken Comments Blood Pressure 184/105 12/16/2020 12:45 PM CDT Pulse 58 12/16/2020 12:50 PM CDT Temperature 36.6 ??C (97.9 ??F) 12/16/2020 9:14 AM CDT Respiratory Rate 13 12/16/2020 12:50 PM CDT Oxygen Saturation 97% 12/16/2020 12:50 PM CDT Inhaled Oxygen Concentration - - [...] 1 tablet (5 mg 90 tablet 3 /04/202002/28/2021 5 mg tablet total) by mouth daily. sevelamer (RENVELA) 800 Take 1 tablet (800 90 tablet 3 06/03/202001/18/2021 mg tablet mg total) by mouth daily [...] MOUTH DAILY. documented as of this encounter OR Notes Op Note - Elena Melgar M.D. - 12/16/2020 10:20 AM CDT Pre-op Diagnosis Ureteral Stent Exchange Post-op Diagnosis Ureteral Stent Exchange Findings 1. Cystoscopy was unremarkable. Bladder appeared unremarkable. There were no stones, trabeculations,diverticula. 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 2. A stent was noted to be emanating from the allograft kidney ureteral orifice and had no incrustation. 3. Uncomplicated exchange of an 8 Fr x 20 cm Imajin stent Complications None Description of Procedure After appropriate patient identification and verification of informed consent, the patient was brought into the [facility] [place] and underwent induction of anesthesia. The patient was then prepped and draped in the standard sterile fashion in the dorsal lithotomy position. After surgical pause and confirmation of antibiotic administration, we proceeded with a cystoscopy. The bladder was systematically examined with no tumors or lesions concerning for malignancy. A stent was notedto be emanating from the allograft kidney ureteral orifice on the right superior portion of the bladder with no encrustation. A 0.035 sensor tip wire was placed alongside the stent and confirmed to be in appropriate position by fluoroscopy. Using stent graspers the distal end of the stent was grasped and brought out through the urethral meatus and removed. A new 8 Fr x 20 cm Imajin ureteral stent wasadvanced over the wire and deployed in the standard fashion with curls in the renal pelvis and in the bladder, confirmed with fluoroscopy. The bladder was drained at the conclusion of procedure. The patient was awoken from anesthesia and transferred to the recovery room in stable condition. Elena Melgar M.D. documented in this encounter Plan of Treatment Upcoming Encounters Date Type Specialty Care Team Description 06/01/2022 Telemedicine Pharmacy An Nicholas APRN, C.N.P., D.N.P., M.S.N. [address] [place] [address] 55 [phone] (Wo rk) 07/31/2022 Lab Laboratory Medicine Tony Rubalcava M. B., Sydnie, Mukund [address] [place] [address] [phone] (Wo rk) 07/31/2022 Lab Laboratory Medicine Tony Rubalcava M. B., Mukund Otoole [address] [place] [address] [phone] (Wo rk) 07/31/2022 Office Visit Transplant Tony Rubalcava M.B., Mukund [place] [address] [place] [address] [phone] (Wo rk) 07/31/2022 Appointment Radiology Tony Rubalcava M.B., Mukund [place] [address] [place] [address] [phone] (Wo rk) 08/01/2022 Office Visit Transplant Tony Rubalcava M.B., Mukund [place] [address] [place] [address] [phone] (Wo rk) 08/01/2022 Clinical Support Transplant Tony Rubalcava M.B., Sydnie, Mukund [address] [place] [address] [phone] (Wo rk) documented as of this encounter Procedures Procedure Name Priority Date/Time Associated Comments Diagnosis FL FLUORO LESS RAD - Routine 12/16/2020 11:25 Results for this THAN 1 HOUR (most inpatients AM CDT procedure a re in and all the results outpatients) section. EXCHANGE URETERAL 12/16/2020 9:46 Ureteral Stent STENT AM CDT Exchange Special Needs Spear primary. documented in this encounter Results FL Fluoro Less Than 1 Hour (12/16/2020 11:25 AM CDT) Specimen (Source) Anatomical Location Collection Method / Collectio n Time Received Time / Laterality Volume Narrative [id number] - 12/16/2020 11:26 AM CDT This exam does not require a radiologist review or interpretation. Please refer to the patient's medical record on this date for clinical details. Shanon WESTFALL FLUOROSCOPY PROCEDURES Performing Organization Address City/State/ZIP Code Phon e Number [id number] NA documented in this encounter Visit Diagnoses Not on filedocumented in this encounter Administered Medications Inactive Administered Medications - up to 3 most recent administrations Medication Order MAR Action Action Date Dose Rate Site acetaminophen tablet 1,000 mg Given 12/16/2020 9:15 AM CDT 1,000 mg (TYLENOL) 1,000 mg, oral, Once, On Elizabeth 12/16/20 at 0900, For 1 dose, Pre-Op lactated ringers New Bag 12/16/2020 9:48 AM CDT 80 mL/hr 80 mL/hr 80 mL/hr, intravenous, Continuous, Starting on Elizabeth 12/16/20 at 0900, Pre-Op sodium chloride 0.9 % injection 10 mL 10 mL, intravenous, As needed, line care , Starting on Elizabeth 12/16/20 at 0853, Pre-Op, Peripheral Intravenous Catheter and Rapid Infusion Cat heter, prior to blood sampling, post blood transfusion or post blood samplin g sodium chloride 0.9 % injection 3 mL 3 mL, intravenous, As needed, line care, Starting on Elizabeth 12/16/20 at 0853, Pre-Op, Prior to and following infusion and betw een multiple consecutive infusions: sodium chloride 0.9 % injection sodium chloride 0.9 % injection 3 mL 3 mL, intravenous, Every 12 hours scheduled, First dos e on Elizabeth 12/16/20 at 0900, Pre-Op, Peripheral Intravenous Catheter and Rapid Infu mario alberto Catheter, when no infusion to maintain patency vancomycin 1,000 mg in NaCl 0.9% 250 [...] mg 260 mL/hr documented in this encounter Active and Recently Administered Medications Times are shown in CDT. Scheduled Medication Order 12/14/2020 12/15/2020 12/16/2020 acetaminophen tablet 1,000 mg (TYLENOL) (COMPLETED) 0915 (Given - Provider: Rocío Zheng R.N.) 1,000 mg, oral, Once, On Elizabeth 12/16/20 at 0900, For 1 dose, Pre-Op ceFAZolin injection 2 g (ANCEF) (COMPLETED) 1018 (Given - Provider: Deo Dsouza APRN, [facility]) 2 g, intravenous, Once, On Elizaebth 12/16/20 a t 0930, For 1 dose, Intra-Op, If needed, reconstitute vial per package insert instructions. See IVAG for administration guidelines. , Drug Monitoring Program: Pha rmacist to adjust medication dosing base d on indication and drug clearance factors., Indications: Prophylaxis, surgical lidocaine HCL 2 % topical jelly 1 application (UROJET) 30 (Due) 1 application, urethral, Once, On Elizabeth 12/16/20 at 0930, For 1 dos e, Intra-Op sodium chloride 0.9 % injection 3 mL 0900 (Due) 3 mL, intravenous, Every 12 hours schedu led, First dose on Elizabeth 12/16/20 at 0900, Pre-Op, Peripheral Intravenous Catheter and Rapid Infusion Catheter, when no infusion to maintain patency sodium chloride 0.9 % injection 3 mL 0900 (Due) 3 mL, intravenous, Every 12 hours schedu led, First dose on Elizabeth 12/16/20 at 0900, Pre-Op, Peripheral Intravenous Catheter and Rapid Infusion Catheter, when no infusion to maintain patency vancomycin 1,000 mg in NaCl 0.9% 250 mL (VANCOCIN) IVPB (COMPLET ED) 0948 (New Bag - Provider: Cristian Rojas R.N.)0956 (Rate/Dose Verify - Provider: Shanon Benjamin M.D.) 1,000 mg (rounded from 1,071 mg = 15 mg/ kg ? 71.4 kg Adjusted weight), intravenous, at 260 mL/hr, Administer over 60 Minutes, Once, On Elizabeth 12/16/20 at 0900, For 1 dose, Intra-Op, Drug Monitoring Program : Pharmacist to adjust medication dosing based on indication and drug clearance factors., Indications: Prophylaxis, surgical Continuous Medication Order 12/14/2020 12/15/2020 12/16/2020 lactated ringers 0948 (New Bag - Provider: Ann MartellNDavi)1259 (Stopped - Provider: Margarita Martins R.N.) 80 mL/hr, intravenous, at 80 mL/hr, Cont inuous, Starting on Elizabeth 12/16/20 at 0900, Pre-Op lactated ringers 1045 (Due) 20 mL/hr, intravenous, at 20 mL/hr, Cont inuous, Starting on Elizabeth 12/16/20 at 1045, PACU & Post-Op PRN Medication Order 12/14/2020 12/15/2020 12/16/2020 fentaNYL injection 25 mcg (SUBLIMAZE) 25 mcg, intravenous, Every 2 min PRN, mo derate pain or score 4-6 of 10, severe pain or score 7-10 of 10, Starting on Elizabeth 12/16/20 at 1314, PACU (only), Up to maximum total dose of 200 mcg haloperidol lactate injection 1 mg (HALDOL) 1 mg, intravenous, Every 6 hours PRN, na usea, vomiting, Starting on Elizabeth 12/16/20 at 1314, For 48 hours, Total of 3 doses in 24 hour period. RASS must be -2 or higher to administer. Reassess for nausea or vomiting after at least 10 minutes. If nausea or vomiting persists administer next ordered antiemetic medications (order for antiemetic medication administration ondansetron then haloperidol then promethazine) lidocaine HCL 2 % topical jelly (UROJET) (CANCELED) 1016 (Given - Provider: Marilyn Hall R.N. - Comment: urethra) As needed, Starting on Elizabeth 12/16/20 at 1016, Intra-Op naloxone injection 0.2 mg (NARCAN) 0.2 mg, intravenous, As needed, respirat ory depression, Starting on Elizabeth 12/16/20 at 1314, For respiratory rate less than 8 breaths per minute or RASS score of - 3, -4, -5. Apply oxygen to keep oxygen saturations greater than 90% and notify service. oxybutynin tablet 5 mg (DITROPAN) 5 mg, oral, Once as needed, If patient i s not required to void prior to dismissal, Starting on Elizabeth 12/16/20 at 1314, For 1 dose, PACU (only) oxybutynin tablet 5 mg (DITROPAN) 5 mg, oral, 3 times daily PRN, bladder spasms, Starting on T 12/16/20 at 1314 sodium chloride 0.9 % injection 10 mL 10 mL, intravenous, As needed, line care , Starting on Elizabeth 12/16/20 at 0853, Pre- Op, Peripheral Intravenous Catheter and Rapid Infusion Catheter, prior to blood sampling, post blood transfusion or post blood sampling sodium chloride 0.9 % injection 10 mL 10 mL, intravenous, As needed, line care , Starting on Elizabeth 12/16/20 at 0853, Pre- Op, Peripheral Intravenous Catheter and Rapid Infusion Catheter, prior to blood sampling, post blood transfusion or post blood sampling sodium chloride 0.9 % injection 3 mL 3 mL, intravenous, As needed, line care, Starting on Elizabeth 12/16/20 at 0853, Pre- Op, Prior to and following infusion and between multiple consecutive infusions: sodium chloride 0.9 % injection sodium chloride 0.9 % injection 3 mL 3 mL, intravenous, As needed, line care, Starting on Elizabeth 12/16/20 at 0853, Pre- Op, Prior to and following infusion and between multiple consecutive infusions: sodium chloride 0.9 % injection documented in this encounter Additional Health Concerns Assessment Noted Time PHQ-9 Depression Total Score: 4 01/30/2019 12:13 PM CD T documented as of this encounter Care Teams Clothing Pattern Preparer Relationship Specialty Start Date End Date Elsewhere, Pcp PCP - General 09/17/19 documented as of this encounter
--- OUTSIDE RECORDS SUMMARY | 2022-05-25 13:10 | XMS_ITS | Encounter Summary ---
:1960 Author Organization [facility] Address [address] [place] [address] Care Team Providers Name Role Phone Elsewhere, Pcp Primary Care Provider Unavailable Encounter Details Date Type Department Care Team Description 12/15/2020 Documentation Division of Nephrology and Josr Martínez Hypertension in [place], ., D.O. [place] 200 [facility] 200 [place] [phone] (Wo rk) Social History Tobacco Use Types [...] often do you attend roman catholic or orthodox 1 to 4 times per [...] Progress Notes Steve Martínez Jr., D.O. - 12/15/2020 8:16 AM CDT Care coordination documentation note: Received an e-mail today that her CVC is running extremely poorly on dialysis. Multiple alarms, withhigh arterial suction pressures, she is not volume depleted, and the catheter seems to be quite positional. This is identical to the issues which occurred with her previous central venous catheter for dialysis. I suspect this is mechanical due to anatomic issues and catheter positioning. This is a very frustrating matter, as she clotted last week but she is only today in Interventional Radiology for up approach to declotting her graft. Understandably, we are all frustrated and hopeful that the graft declot will go well. Failing this, I will attempt to find out who will be working with her case today and highlight that we may need a different CVC if they are unsuccessful with declot. This is a life-threatening event, and she is active on the transplant wait list and we are desperatefor assistance from our interventional radiology colleagues. documented in this encounter Plan of Treatment Upcoming Encounters Date Type Specialty Care Team Description 06/01/2022 Telemedicine Pharmacy An Nicholas APRN, C.N.P., D.N.P., M.S.N. [address] [place] [phone] (Wo rk) 07/31/2022 Lab Laboratory Medicine Tony Rubalcava M. B., ChBurke, MDebra [address] [place] [phone] (Wo rk) 07/31/2022 Lab Laboratory Medicine Tony Rubalcava M. B., ChBurke, MDebra [address] [place] [phone] (Wo rk) 07/31/2022 Office Visit Transplant Tony Rubalcava M.B., Sydnie, MDebra [address] [place] [phone] (Nicolas wen) 07/31/2022 Appointment Radiology Tony Rubalcava M.B., ChBurke, MDebra [address] [place] [phone] (Wo rk) 08/01/2022 Office Visit Transplant Tony Rubalcava M.B., ChBurke, MDebra [address] [place] [address] [phone] (Wo behzad) 08/01/2022 Clinical Support Transplant Tony Rubalcava M.B., ChBurke, M.DDavi [address] [place] [address] 55 [phone] (Nicolas wen) documented as of this encounter Visit Diagnoses Not on filedocumented in this encounter Additional Health Concerns Assessment Noted Time PHQ-9 Depression Total Score: 4 01/30/2019 12:13 PM CD T documented as of this encounter Care Teams Business Continuity Manager Relationship Specialty Start Date End Date Elsewhere, Pcp PCP - General 09/17/19 documented as of this encounter
--- OUTSIDE RECORDS SUMMARY | 2022-05-25 13:10 | XMS_ITS | Encounter Summary ---
:1960 Author Organization [facility] Address [address] [place] [address] Care Team Providers Name Role Phone Elsewhere, Pcp Primary Care Provider Unavailable Encounter Details Date Type Department Care Team Description 12/10/2020 Documentation Division of Nephrology and Debora Regalado R.N. Hypertension in [place], [facility] 1 [place], [place] [address] [place] [phone] [place] [address] [phone] Social History Tobacco Use Types Packs/Day Years [...] How often do you attend yarsani or restorationist 1 to 4 times per [...] encounter Progress Notes Debora Regalado R.N. - 12/10/2020 8:45 AM CDT REFERRAL Nolan Candelario CNP CHIEF COMPLAINT/PURPOSE OF VISIT REASON FOR REFERRAL: Declot of arterial venous graft. HISTORY OF PRESENT ILLNESS ACCESS: Dialysis Gortex Graft Date placed - 04/26/19 Provider - LOCATION OF ACCESS: Right Upper Arm PERTINENT PROCEDURAL HISTORY: Patient referred for fistula declot procedure as indicated. She is being referred due to thrill and bruit being absent upon arrival to dialysis this morning. She had a declot procedure done on 05/21/19, and hasn't required any other interventions since then. [facility] on a Sunday, Sunday and Sunday schedule. DIABETES: No ANTICOAGULATION: None LABORATORY RESULTS: Current Labs being faxed to us from [facility]. IMPRESSION/REPORT/PLAN SPECIFIC PATIENT INSTRUCTIONS: [facility], 12/10/20, at 1:15 pm. You must have a application integration architect to drive you home due to the [...] your medicines that you take with you. If you take insulin please follow these instructions: N/A If you are on Coumadin or blood thinners, please follow these instructions: N/A Plan on spending about half to three fourths of the day in [place] for this procedure. There is generally some waiting involved prior to the procedure. Post Access Instructions: Report to [facility] at 6 am on 12/11/20. Appointment scheduled via Interventional Radiology. documented in this encounter Plan of Treatment Upcoming Encounters Date Type Specialty Care Team Description 06/01/2022 Telemedicine Pharmacy An Nicholas APRN C.N.P., D.N.P., M.S.N. [address] [place] [address] [phone] (Nicolas wen) 07/31/2022 Lab Laboratory Medicine Tony Rubalcava M. B., ChDaviBDavi, M.D. [address] [place] [address] 55 [phone] (Nicolas wen) 07/31/2022 Lab Laboratory Medicine Tony Rubalcava M. B., ChDaviBDavi, M.D. [address] [place] [address] [phone] (Nicolas wen) 07/31/2022 Office Visit Transplant Tony Rubalcava M.B., ChDaviBDavi, M.D. [address] [place] [address] [phone] (Nicolas wen) 07/31/2022 Appointment Radiology Tony Rubalcava M.B., ChDaviBDavi, M.D. [address] [place] [address] [phone] (Nicolas wen) 08/01/2022 Office Visit Transplant Tony Rubalcava M.B., Mukund [place] [address] [place], [place] 55 [phone] (Wo behzad) 08/01/2022 Clinical Support Transplant Tony Rubalcava M.B., Mukund [place] [address] [place], [place] [phone] (Nicolas wen) documented as of this encounter Visit Diagnoses Not on filedocumented in this encounter Additional Health Concerns Assessment Noted Time PHQ-9 Depression Total Score: 4 01/30/2019 12:13 PM CD T documented as of this encounter Care Teams Metal Container Maker Relationship Specialty Start Date End Date Elsewhere, Pcp PCP - General 09/17/19 documented as of this encounter
--- OUTSIDE RECORDS SUMMARY | 2022-05-25 13:10 | XMS_ITS | Encounter Summary ---
:1960 Author Organization [facility] Address [address] [place] [address] Care Team Providers Name Role Phone Elsewhere, Pcp Primary Care Provider Unavailable Encounter Details Date Type Department Care Team Description 12/16/2020 Surgery Outpatient Procedure Geraldo Spear URETERAL STENT, Center in [place] Hernandez M.D. Imajin stent, allograft [place] [address] [facility] [address] [place] [phone] Social History Tobacco Use Types Packs/Day Years [...] How often do you attend orthodox or taoism 1 to 4 times per [...] Sign Reading Time Taken Comments Blood Pressure 174/104 12/16/2020 11:15 AM CDT Pulse 67 12/16/2020 11:15 AM CDT Temperature 36.6 ??C (97.9 ??F) 12/16/2020 9:14 AM CDT Respiratory Rate 20 12/16/2020 11:15 AM CDT Oxygen Saturation 95% 12/16/2020 11:15 AM CDT Inhaled Oxygen Concentration - - [...] consent, the patient was brought into the [facility] [place] and underwent induction of anesthesia. The patient [...] An Nicholas APRN, C.N.P., D.N.P., M.S.N. [address] [place] [phone] (Wo behzad) 07/31/2022 Lab Laboratory Medicine Tony Rubalcava M. B., Yvonne.Maurice, MElvia. [address] [place] [address] [phone] (Wo rk) 07/31/2022 Lab Laboratory Medicine Tony Rubalcava M. B., Mukund [place] [address] [place] [address] [phone] (Wo rk) 07/31/2022 Office Visit Transplant Tony Rubalcava M.B., Mukund [place] [address] [place] [address] [phone] (Wo rk) 07/31/2022 Appointment Radiology Tony Rubalcava M.B., Mukund [place] [address] [place] [address] 55 [phone] (Wo rk) 08/01/2022 Office Visit Transplant Tony Rubalcava M.B., Mukund [place] [address] [place] [address] [phone] (Wo rk) 08/01/2022 Clinical Support Transplant Tony Rubalcava M.B., Mukund [place] [address] [place] [address] 55 [phone] (Wo rk) documented as of [...] Time Received Time / Laterality Volume Narrative [id number] - 12/16/2020 11:26 AM CDT This exam does not require a radiologist review or interpretation. Please refer to the patient's medical record on this date for clinical details. Shanon WESTFALL FLUOROSCOPY PROCEDURES Performing Organization Address City/State/ZIP Code Phon e Number [id number] NA documented in this encounter Visit Diagnoses [...] Starting on Elizabeth 12/16/20 at 0900, Pre-Op lidocaine HCL 2 % topical jelly Given 12/16/2020 10:16 AM CDT 1 application Other (UROJET) As needed, Starting on Elizabeth 12/16/20 at 1016, Intra-Op sodium chloride 0.9 % injection 10 mL [...] 1018 (Given - Provider: Deo Dsouza APRN, [facility]) 2 g, intravenous, Once, On Elizabeth 12/16/20 a t 0930, For 1 dose, Intra-Op, If needed, reconstitute vial per package insert instructions. See IVAG for administration guidelines. , Drug Monitoring Program: Pha rmacist to adjust medication dosing base d on indication and drug clearance factors., Indications: Prophylaxis, surgical lidocaine HCL 2 % topical jelly 1 application (UROJET) 0930 (Due) 1 application, urethral, Once, On Elizabeth [...] in NaCl 0.9% 250 mL (VANCOCIN) IVPB ([facility]) 0948 (New Bag - Provider: Cristian [...] lactated ringers 0948 (New Bag - Provider: Cristian Rojas RDaviN.)1259 (Stopped - Provider: Margarita Martins RDaviNDavi) 80 mL/hr, intravenous, at 80 mL/hr, Cont [...] (CANCELED) 1016 (Given - Provider: Marilyn Hall RDaviNDavi - Comment: urethra) As needed, Starting on [...] times daily PRN, bladder spasms, Starting on [facility] 12/16/20 at 1314 sodium chloride 0.9 % [...] documented as of this encounter Care Teams Corporate Legal Manager Relationship Specialty Start Date End Date Elsewhere, Pcp PCP - General 09/17/19 documented as of this encounter
--- OUTSIDE RECORDS SUMMARY | 2022-05-25 13:10 | XMS_ITS | Encounter Summary ---
:1960 Author Organization [facility] Address [address] [place] [address] Care Team Providers Name Role Phone Elsewhere, Pcp Primary Care Provider Unavailable Encounter Details Date Type Department Care Team Description 12/09/2020 Orders Only Ata Dick Guilherme, Yvonne Bautista Kidney Disease; Center for M.D. Pretransplant Recipient Evaluation Exam Transplantation and [address] [place] [address] Clinical Regeneration in [place], [place] [address] [place] [address] [place] [address] (Work) [phone] Social History Tobacco Use Types Packs/Day Years [...] How often do you attend sikhism or baptist 1 to 4 times per [...] Nicholas APRN, C.N.P., D.N.P., M.S.N. [address] [place] [address] 55 [phone] (Nicolas wen) 07/31/2022 Lab Laboratory Medicine Tony Rubalcava M. B., ChDaviBDavi, M.Michelle. [address] [place] [address] 55 [phone] (Nicolas wen) 07/31/2022 Lab Laboratory Medicine Tony Rubalcava M. B., ChDaviBDavi, MElvia. [address] [place] [address] 55 [phone] (Nicolas wen) 07/31/2022 Office Visit Transplant Tony Rubalcava M.B., ChBurke, MElvia. [address] [place] [address] 55 [phone] (Nicolas wen) 07/31/2022 Appointment Radiology Tony Rubalcava M.B., Sydnie, Mukund [address] [place], [place] 55 [phone] (Wo rk) 08/01/2022 Office Visit Transplant Tony Rubalcava M.B., Sydnie, Mukund [address] [place], [place] 55 [phone] (Wo rk) 08/01/2022 Clinical Support Transplant Tony Rubalcava M.B., Sydnie, Mukund [address] [place], [place] 55 [phone] (Wo rk) documented as of this encounter Results HLA Class II SAB Antibody Screen (12/22/2020 5:15 AM CDT) [facility] Method Time Signature Class II SAB Positive Not Applicable 12/27/2020 DBB8 Overall 10:33 AM CDT Result Class II SAB 37 12/27/2020 DBB8 cPRA 10:33 AM CDT Comment: ----ADDITIONAL INFORMATION---- This PRA is a [facility] calculated PRA. PRA is based on the antigen frequency of the Tissue Typing patient a nd donor population. ??PRA reflects all antibodie s with a normalized value (MFI) above 300. SAB DRB1 Specificity NONE 12/27/2020 10:33 AM CDT DBB8 SAB [id number] Specificity NONE 12/27/2020 10:33 AM CDT DBB8 SAB DQB1 Specificity see below 12/27/2020 10:33 AM CDT DBB8 Comment: 2(A*05:01;B*02:01)[6511] Format: Serologic Eq.(DQA1;DQB1 Mol. All jorge)[Normalized MFI] NOTE: Data is displayed in descending or kristi by Mean Fluorescence Intensity (MFI). ??Serologic equivalents can be di splayed multiple times for different molecular alleles. SAB DPB1 Specificity NONE 12/27/2020 10:33 AM CDT DBB8 Comment: ----ADDITIONAL INFORMATION---- Method: Luminex Flow Cytometry CLIA: [id number] ??CLIA Manager Of Sustainability: SHANTA LOYD MD,PhD Specimen Anatomical Collection Method Collection Time Receive d Time (Source) Location / / Volume Laterality Blood (Blood, 12/22/2020 5:15 AM 12/24/19 21 Venous) CDT 11:33 AM CDT Resulting Agency Comment Mailed In Specimen Twin Vanegas M.D. LAB HLA ORDERABLES Performing Organization Address City/State/ZIP Code Phon e Number [facility] - [address] [place], [place] [address] [facility] DBB8 [place] [address] Laboratories-[facility] [address] HLA Class I SAB Antibody Screen (12/22/2020 5:15 AM CDT) [facility] Method Time Signature Class I SAB Positive Not Applicable 12/27/2020 DBB8 Overall 10:23 AM CDT Result Class I SAB 22 12/27/2020 DBB8 cPRA 10:23 AM CDT Comment: ----ADDITIONAL INFORMATION---- This PRA is a [facility] calculated PRA. PRA [...] 12/27/2020 10:23 AM CD T DBB8 Comment: 51(51:01)[4540], 51(51:02)[3470], 49(49: 01)[2957], 78(78:01)[5], 63(15:16)[2060], 38(38: 01)[2043], 75(15:02)[1910], 59(59:01)[181], 77(15: 13)[1750], 52(52:01)[1704], 57(57:01)[1596], 57(57: 03)[1459], 53(53:01)[1388], 58(58:01)[1290] Format: Serologic Eq.(B Mol. Allele)[Nor malized MFI] NOTE: Data is displayed in descending or kristi by Mean Fluorescence Intensity (MFI). ??Serologic equivalents can be di splayed multiple times for different molecular alleles. SAB C Specificity NONE 12/27/2020 10:23 AM CD T DBB8 Comment: ----ADDITIONAL INFORMATION---- Method: Luminex Flow Cytometry CLIA: [id number] ??CLIA Manager Of Sustainability: SHANTA LOYD MD,PhD Specimen Anatomical Collection Method Collection Time Receive d Time (Source) Location / / Volume Laterality Blood (Blood, 12/22/2020 5:15 AM 12/24/19 21 Venous) CDT 11:33 AM CDT Resulting Agency Comment Mailed In Specimen Twin Vanegas M.D. LAB HLA ORDERABLES Performing Organization Address City/State/ZIP Code Phon e Number [facility] - [address] [place], [place] [address] [facility] DBB8 [place] [address] [facility] [address] documented in this encounter Visit Diagnoses Diagnosis Chronic Kidney Disease Pretransplant Recipient Evaluation Exam documented in this encounter Additional Health Concerns Assessment Noted Time PHQ-9 Depression Total Score: 4 01/30/2019 12:13 PM CD T documented as of this encounter Care Teams Religious Education Teacher Relationship Specialty Start Date End Date Elsewhere, Pcp PCP - General 09/17/19 documented as of this encounter
--- OUTSIDE RECORDS SUMMARY | 2022-05-25 13:10 | XMS_ITS | Encounter Summary ---
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 [facility] Procedures IR Dialysis / High Flow Catheter Placement IR Dialysis Fistula Declot Right 200 [place] [address] Referral ID Status Reason Start Date Expiration Date Visits Requ ested Visits Authorized [id number] Closed 12/10/2020 12/10/2021 1 1 Encounter Details Date Type Department Care Team Description 12/10/2020 Orders Only Division of Nephrology Zaire Candelario Throm bosis Vascular Graft Subsequent (Primary Dx); and Hypertension, CHRISTOPHER, C.N.P. Chronic Failure Renal End Stage Renal Di sease Dialysis Dependent (HCC) [facility], in 200 [place], [place] [address] [place] [address] [place], [place] [phone] (Work) [phone] Social History Tobacco Use Types Packs/Day Years [...] How often do you attend pentecostal or alevism 1 to 4 times per [...] An Nicholas APRN, C.N.P., D.N.P., M.S.N. 200 [place], [place] 55 [phone] (Wo rk) 07/31/2022 Lab Laboratory Medicine Tony Rubalcava M. B., Mukund Otoole [address] [place] [address] 55 [phone] (Wo rk) 07/31/2022 Lab Laboratory Medicine Tony Rubalcava M. B., Mukund Otoole [address] [place] [address] 55 [phone] (Wo rk) 07/31/2022 Office Visit Transplant Tony Rubalcava M.B., Sydnie, Mukund [address] [place] [address] 55 [phone] (Wo rk) 07/31/2022 Appointment Radiology Tony Rubalcava M.B., Sydnie, Mukund [address] [place] [address] 55 [phone] (Nicolas wen) 08/01/2022 Office Visit Transplant Tony Rubalcava M.B., Sydnie, Mukund [address] [place] [address] 55 [phone] (Nicolas rk) 08/01/2022 Clinical Support Transplant Tony Rubalcava M.B., Sydnie, MDebra [address] [place] [address] 55 [phone] (Nicolas wen) documented as of [...] Stage Renal Di sease Dialysis Dependent (HCC) Thrombosis Vascular Graft Subsequent Chronic Failure Renal End Stage Renal Di sease Dialysis Dependent (HCC) documented in this encounter Additional Health Concerns Assessment Noted Time PHQ-9 Depression Total Score: 4 01/30/2019 12:13 PM CD T documented as of this encounter Care Teams Cash Posting Clerk Relationship Specialty Start Date End Date Elsewhere, Pcp PCP - General 1/29/20 documented as of this encounter
--- OUTSIDE RECORDS SUMMARY | 2022-05-25 13:10 | XMS_ITS | Encounter Summary ---
:1960 Author Organization [facility] Address [address] [place] [address] Care Team Providers Name Role Phone Elsewhere, Pcp Primary Care Provider Unavailable Encounter Details Date Type Department Care Team Description 12/07/2020 Hospital Encounter Department of Spear, Ureteral Stent Laboratory Medicine Shashi Samuel Exchange in [address] [address] [place], [place] [phone] [address] (Work) [phone] Social History Tobacco Use Types Packs/Day Years [...] How often do you attend hindu or yazdanism 1 to 4 times per [...] Take 3 capsules (3 540 capsule 3 /04/202003/07/2021 mg capsule mg total) by mouth 2 (two) times a day. acetaminophen (TYLENOL) Take 2 tablets 0 05/12/20 19 04/07/2022 500 mg tablet (1,000 mg total) by mouth every 6 (six) hours as needed for pain. chlorhexidine Apply 1 application 30 mL 0 06/11/2020 (HIBICLENS) 4 % topically as needed external solution (as surgical scrub) for up to 2 doses. Shower using solution the night before and the morning of surgery use to scrub right arm from fingers to shoulder. gabapentin (NEURONTIN) Take 3 capsules (300 450 [...] Nicholas APRN, C.N.P., D.N.P., M.S.N. [address] [place] [address] 55 [phone] (Wo rk) 07/31/2022 Lab Laboratory Medicine Tony Rubalcava M. B., Ch.B., M.D. [address] [place] [address] 55 [phone] (Wo rk) 07/31/2022 Lab Laboratory Medicine Tony Rubalcava M. B., Ch.B., M.D. [address] [place] [address] 55 [phone] (Wo rk) 07/31/2022 Office Visit Transplant Tony Rubalcava M.B., Sydnie, Mukund [address] [place] [address] [phone] (Wo rk) 07/31/2022 Appointment Radiology Tony Rubalcava M.B., Mukund Otoole [address] [place] [address] 55 [phone] (Wo rk) 08/01/2022 Office Visit Transplant Tony Rubalcava M.B., Mukund Otoole [address] [place] [address] 55 [phone] (Wo rk) 08/01/2022 Clinical Support Transplant Tony Rubalcava M.B., Mukund Otoole [address] [place] [address] 55 [phone] (Wo rk) documented as of this encounter Procedures Procedure Name Priority Date/Time Associated Diagnosis Comme nts BACTERIAL CULTURE, Routine 12/09/2020 6:30 AM Ureteral Stent R esults for this AEROBIC + SUSC, CDT Exchange procedure ar e in URINE the results section. documented in this encounter Results (ABNORMAL) Bacterial Culture, Aerobic + Susc, Urine (12/09/2020 6:30 AM CDT) Analysis Performed At Patho logist Time Signature Urine Culture Mixed 12/10/2020 ECLR shakir. (A) 11:18 AM CDT Specimen Anatomical Collection Method Collection Time Receive d Time (Source) Location / / Volume Laterality Urine (Urine, 12/09/2020 6:30 AM 12/10/19 21 2:27 Straight CDT PM CDT Catheter) Comment: Specimen Source Site: Urine Geraldo Spear M.D. LAB MICROBIOLOGY - GENERAL O RDERABLES Performing Organization Address City/State/ZIP Code Phon e Number [facility]- [address] [place], [place] [address] [facility] [place] [address] [address] documented in this encounter Visit Diagnoses Diagnosis Ureteral Stent Exchange documented in this encounter Additional Health Concerns Assessment Noted Time PHQ-9 Depression Total Score: 4 01/30/2019 12:13 PM CD T documented as of this encounter Care Teams Tree Marker Relationship Specialty Start Date End Date Elsewhere, Pcp PCP - General 09/17/19 documented as of this encounter
--- OUTSIDE RECORDS SUMMARY | 2022-05-25 13:11 | XMS_ITS | Encounter Summary ---
:1960 Author Organization [facility] Address [address] [place] [address] Care Team Providers Name Role Phone Elsewhere, Pcp Primary Care Provider Unavailable Reason for Visit Reason Onset Date Comments COVID-19 Remote Patient Monitoring 11/17/2020 Welcome Call 11/17/2020 completed ordered be fore 1 pm 11/17 [facility] 11/18 Patient Education 11/17/2020 Complex Care/COVID19 , Welcome Letter/Terms of Serv ice sent 11/17 Encounter Details Date Type Department Care Team Description 11/17/2020 Remote Monitoring Remote Patient Katie Lyman COVID-19 Remote Monitoring [phone] Patient Monitoring; [facility] (Work) Welcome Call [address] [facility] (completed ordered [place], [place] before 1 pm [facility] [phone] 11/18); Patient Education (Comp gabe Care/COVID19, Welcome Letter/ Terms of Service sent 11/17) Social History Tobacco Use Types Packs/Day Years [...] How often do you attend synagogue or restorationism 1 to 4 times per [...] Nicholas APRN, C.N.P., D.N.P., M.S.N. [address] [place] [address] 55 [phone] (Nicolas wen) 07/31/2022 Lab Laboratory Medicine Tony Rubalcava M. B., Ch.B., M.D. [address] [place] [address] 55 [phone] (Nicolas wen) 07/31/2022 Lab Laboratory Medicine Tony Rubalcava M. B., Ch.B., M.D. [address] [place] [address] 55 [phone] (Nicolas wen) 07/31/2022 Office Visit Transplant Tony Rubalcava M.B., Mukund Otoole [address] [place] [address] 55 [phone] (Wo rk) 07/31/2022 Appointment Radiology Tony Rubalcava M.B., Mukund [place] [address] [place] [address] 55 [phone] (Wo rk) 08/01/2022 Office Visit Transplant Tony Rubalcava M.B., Mukund [place] [address] [place] [address] 55 [phone] (Wo rk) 08/01/2022 Clinical Support Transplant Tony Rubalcava M.B., Sydnie, Mukund [address] [place] [address] 55 [phone] (Wo rk) documented as of this encounter Visit Diagnoses Not on filedocumented in this encounter Additional Health Concerns Infection Onset Date Last Indicated Resolved Time [id number]: Has been isolated 11/16/2020 11/16/2020 11/29/2020 2:34 PM CDT for 14 days. She is not symptomatic. Assessment Noted Time PHQ-9 Depression Total Score: 4 01/30/2019 12:13 PM CD T documented as of this encounter Care Teams Horse Farm Manager Relationship Specialty Start Date End Date Elsewhere, Pcp PCP - General 09/17/19 documented as of this encounter
--- OUTSIDE RECORDS SUMMARY | 2022-05-25 13:11 | XMS_ITS | Encounter Summary ---
:1960 Author Organization [facility] Address [address] [place] [address] Care Team Providers Name Role Phone Elsewhere, Pcp Primary Care Provider Unavailable Encounter Details Date Type Department Care Team Description 11/16/2020 Lab Department of Laboratory Teresa Antonio , Encounter For Medicine and PathologyMukund Preprocedural Laboratory [facility] in [address] [facility] Examination (COVID-19) [place], [place] [address] [facility] [address] [place] [address] [phone] Social History Tobacco Use Types Packs/Day Years [...] Nicholas APRN, C.N.P., D.N.P., M.S.N. [address] [place] [address] 55 [phone] (Nicolas wen) 07/31/2022 Lab Laboratory Medicine Tony Rubalcava M. B., ChDaviBDavi, M.D. [address] [place] [address] 55 [phone] (Nicolas wen) 07/31/2022 Lab Laboratory Medicine Tony Rubalcava M. B., ChDaviBDavi, M.D. [address] [place] [address] 55 [phone] (Nicolas wen) 07/31/2022 Office Visit Transplant Tony Rubalcava M.B., ChBurke, MElvia. [address] [place] [address] 55 [phone] (Nicolas wen) 07/31/2022 Appointment Radiology Tony Rubalcava M.B., Mukund [place] [address] [place], [place] 55 [phone] (Wo rk) 08/01/2022 Office Visit Transplant Tony Rubalcava M.B., Mukund [place] [address] [place], [place] 55 [phone] (Wo behzad) 08/01/2022 Clinical Support Transplant Tony Rubalcava M.B., Mukund [place] [address] [place], [place] 55 [phone] (Wo rk) documented as of this encounter Procedures Procedure Name Priority Date/Time Associated Diagnosis Comme nts SARS COV-2 RNA, Routine 11/16/2020 2:15 PM Encounter For Resul ts for this PCR, VARIES CDT Preprocedural procedure are in Laboratory Examination the r esults (COVID-19) section. documented in this encounter Results (ABNORMAL) SARS CoV-2 RNA, PCR, Varies Asymptomatic (11/16/2020 2:15 PM CDT) [facility] Method Time Signature SARS CoV-2 Swab, 11/16/2020 DTL RNA, PCR, Nasopharynx 7:07 PM CDT Source SARS CoV-2 Detected (A) Undetected 11/16/2020 DTL RNA, PCR 7:07 PM CDT Comment: SARS-CoV-2 RNA present. ----ADDITIONAL INFORMATION---- This test has received Emergency Use Aut horization (EUA) by the U.S. Food and Drug Administration an d is used per enamel buffer's instructions. Performance characteristics were verified by [facility] in a manner consistent with CLIA requirements. Visit the CDC website: https://www.cdc.g ov/coronavirus/ for the most recent guidelines on Coron avirus testing. Fact Sheet for Healthcare Providers: https://www.fda.gov/media/446177/downloa d Fact Sheet for Patients: https://www.fda.gov/media/430011/downloa d Specimen Anatomical Collection Method Collection Time Receive d Time (Source) Location / / Volume Laterality Varies 11/16/2020 2:15 PM 3:10 (Nasopharynx) CDT PM CDT Teresa Antonio M.D. LAB MICROBIOLOGY - GENERAL O RDERABLES Performing Organization Address City/State/ZIP Code Phon e Number [facility] - [address] [place], [place] [address] [facility] [place] [address] Laboratories-[facility] [address] documented in this encounter Visit Diagnoses Diagnosis Encounter For Preprocedural Laboratory E xamination (COVID-19) documented in this encounter Additional Health Concerns Infection Onset Date Last Indicated Resolved Time COVID19 Pending 11/16/2020 11/16/2020 11/16/2020 7:07 PM CDT Assessment Noted Time PHQ-9 Depression Total Score: 4 01/30/2019 12:13 PM CD T documented as of this encounter Care Teams Obstetric Anaesthetist Relationship Specialty Start Date End Date Elsewhere, Pcp PCP - General 09/17/19 documented as of this encounter
--- OUTSIDE RECORDS SUMMARY | 2022-05-25 13:11 | XMS_ITS | Encounter Summary ---
:1960 Author Organization [facility] Address [address] [place] [address] Care Team Providers Name Role Phone Elsewhere, Pcp Primary Care Provider Unavailable Reason for Visit Reason Comments Abnormal Lab Encounter Details Date Type Department Care Team Description 11/17/2020 Clinical Communication Department of Urology Geraldo Spear Abnormal Lab in Catrachita Hernandez M.D. [place] [address] [facility] [address] [place] [address] [phone] Social History Tobacco Use Types Packs/Day Years [...] How often do you attend mu-ism or spiritism 1 to 4 times per year 12/23/2021 [...] Telephone Encounter - Nicole Fuentes R.N. - 11/17/2020 7:07 AM CDT Patient positive for COVID.. will have to be rescheduled for her stent exchange after 20 days... I took her case off for tomorrow. Can you call her? documented in this encounter Plan of Treatment Upcoming Encounters Date Type Specialty Care Team Description 06/01/2022 Telemedicine Pharmacy An Nicholas APRN, C.N.P., D.N.P., M.S.N. [address] [place] [address] 55 [phone] (Wo rk) 07/31/2022 Lab Laboratory Medicine Tony Rubalcava M. B., ChBurke, MElvia. [address] [place] [address] 55 [phone] (Wo rk) 07/31/2022 Lab Laboratory Medicine Tony Rubalcava M. B., ChBurke, MDebra [address] [place] [phone] (Wo rk) 07/31/2022 Office Visit Transplant Tony Rubalcava M.B., Sydnie, Mukund [address] [place] [address] 55 [phone] (Wo rk) 07/31/2022 Appointment Radiology Tony Rubalcava M.B., Mukund [place] [address] [place] [address] 55 [phone] (Wo rk) 08/01/2022 Office Visit Transplant Tony Rubalcava M.B., Sydnie, Mukund [address] [place] [address] 55 [phone] (Wo rk) 08/01/2022 Clinical Support Transplant Tony Rubalcava M.B., Sydnie, Mukund [address] [place] [address] 55 [phone] (Wo rk) documented as of this encounter Visit Diagnoses Not on filedocumented in this encounter Additional Health Concerns Infection Onset Date Last Indicated Resolved Time [id number]: Has been isolated 11/16/2020 11/16/2020 11/29/2020 2:34 PM CDT for 14 days. She is not symptomatic. Assessment Noted Time PHQ-9 Depression Total Score: 4 01/30/2019 12:13 PM CD T documented as of this encounter Care Teams Billboard Poster Relationship Specialty Start Date End Date Elsewhere, Pcp PCP - General 09/17/19 documented as of this encounter
--- OUTSIDE RECORDS SUMMARY | 2022-05-25 13:11 | XMS_ITS | Encounter Summary ---
:1960 Author Organization [facility] Address [address] [place] [address] Care Team Providers Name Role Phone Elsewhere, Pcp Primary Care Provider Unavailable Reason for Visit Reason Comments Patient Education Encounter Details Date Type Department Care Team Description 11/18/2020 Clinical Communication Department of Sabrina Houston Education Infusion Therapy in Andi Martinez [place], [address] [place] [address] [place] [address] [place], [place] [phone] (Work) [phone] Social History Tobacco Use Types Packs/Day Years [...] How often do you attend yarsani or worship 1 to 4 times per [...] An Nicholas APRN, C.N.P., D.N.P., M.S.N. [address] [place] [address] 55 [phone] (Wo rk) 07/31/2022 Lab Laboratory Medicine Tony Rubalcava M. B., ChBurke, MElvia. [address] [place] [address] 55 [phone] (Wo rk) 07/31/2022 Lab Laboratory Medicine Tony Rubalcava M. B., ChDaviBDavi, MDebra [address] [place] [address] 55 [phone] (Wo rk) 07/31/2022 Office Visit Transplant Tony Rubalcava M.B., ChBurke, MDebra [address] [place] [address] 55 [phone] (Wo rk) 07/31/2022 Appointment Radiology Tony Rubalcava M.B., ChBurke, M.D. [address] [place] [address] 55 [phone] (Wo rk) 08/01/2022 Office Visit Transplant Tony Rubalcava M.B., Mukund [place] [address] [place], [place] 55 [phone] (Wo rk) 08/01/2022 Clinical Support Transplant Tony Rubalcava M.B., Mukund [place] [address] [place], [place] 55 [phone] (Wo rk) documented as of this encounter Visit Diagnoses Not on filedocumented in this encounter Additional Health Concerns Infection Onset Date Last Indicated Resolved Time [id number]: Has been isolated 11/16/2020 11/16/2020 11/29/2020 2:34 PM CDT for 14 days. She is not symptomatic. Assessment Noted Time PHQ-9 Depression Total Score: 4 01/30/2019 12:13 PM CD T documented as of this encounter Care Teams Customer Specialist Relationship Specialty Start Date End Date Elsewhere, Pcp PCP - General 09/17/19 documented as of this encounter
--- OUTSIDE RECORDS SUMMARY | 2022-05-25 13:11 | XMS_ITS | Encounter Summary ---
:1960 Author Organization [facility] Address [address] [place] [id number] Care Team Providers Name Role Phone Elsewhere, Pcp Primary Care Provider Unavailable Reason for Visit Reason Onset Date Comments COVID-19 Remote Patient Monitoring 11/19/2020 Intake Assessment 11/19/2020 Encounter Details Date Type Department Care Team Description 11/19/2020 Remote Monitoring Remote Patient Kris, YENIID-19 Remote Monitoring Soraya Mascorro R.N. Patient Monitoring; [facility] Intake Assessment [address] [facility] (Work) [place] [address] Social History Tobacco Use Types Packs/Day Years [...] How often do you attend yarsani or confucianism 1 to 4 times per [...] documented as of this encounter Progress Notes Soraya Ponce R.N. - 11/19/2020 8:34 AM CDT Reason for Today's Contact: Remote Patient Monitoring COVID-19 Intake Assessment COVID-19 Symptom Onset Date: 11/15/2020 General Health Assessment: Patient notes today that she is feeling the same since diagnosed with COVID-19. Equipment Set up: RN reviewed the following items with the patient/caregiver related to Remote Patient Monitoring (RPM) program set up: Open equipment kit and follow setup instructions, test vital signs as soon as possible and at scheduled times on tablet, patient will receive a phone call with area code (753) from Boond xavier don't test vital signs, importance of calling RPM nurses with any symptoms prior to equipment arrival, RN phone calls are from area code (145) and should be answered or call returned promptly to prevent additional calls, patient may retest vitals signs at any time if there was an error in equipment to limit phone calls from RPM RN: Yes Symptom Assessment: Home oxygen: No Recent SpO2 result: 93% on room air, retest Today the patient reports the following symptoms: Dyspnea: Not present Cough: Unchanged. Patient reports productive cough: No Chest Pain or chest tightness: Not present Rhinorrhea/congestion: Not present Sore throat: Not present Fever (>100.4oF or subjective fever): Never had Patient report of date of last fever reducing medication: none Chills: Not present Sweats: Not present Myalgias: Not present Diarrhea: Not present Additional symptoms reported: Vomiting: Not present Abdominal pain: Not present Dizzy or lightheaded: Not present Headache: Not present Fatigue: Not present Loss of smell: Not present Loss of taste: Not present Leg swelling:Not present Patient Education: Confirmed that the patient has received and reviewed the 'RPM Program Quick Start User Guide'. The patient was given the opportunity to ask questions regarding the setup and use of the equipment. Reviewed the importance of not taking antipyretics 6 hours prior to their vital sign readings. Questions were addressed and subsequently answered. Patient verbalizes understanding that the Remote Monitoring Program is not an emergency response system, but rather a way for the care team to watch for trends in their vital signs. The patient was educated on notifying emergency personnel of their COVID-19 positive test and the need to wear a mask. Discussed using modes of self-transportation if feeling well enough instead of public transportation or ride share services. [facility] and the Center for Disease Control (CDC) require symptom monitoring and to follow isolation precautions to control the spread of COVID-19. Reinforced the importance to remain self-isolated at home until recommended by COVID-19 Care Team. If household members start to have symptoms, they should self-isolate and call the COVID Nurse line for further assessment. Plan of Care/Next Steps: Recommendation: Self-Isolation, quarantine at home and Home Care Patient is currently using supportive care measures of increasing fluid intake, rest and over the counter medications. Concerns/questions: Patient has no questions or concerns. Patient agrees to continue daily vital sign monitoring and follow up call scheduled. Reviewed emergency symptoms, red flags, and when to notify the healthcare team for new/worsening COVID-19 symptoms. Provided the Remote Patient Monitoring phone number for patient to contact with any questions or concerns. Patient agreed to call Remote Patient Monitoring nurse with any questions or concerns in the interim. documented in this encounter Plan of Treatment Upcoming Encounters Date Type Specialty Care Team Description 06/01/2022 Telemedicine Pharmacy An Nicholas, CHRISTOPHER, C.N.P., D.N.P., M.S.N. [address] [place] [address] [phone] (Wo rk) 07/31/2022 Lab Laboratory Medicine Tony Rubalcava M. B., Sydnie, [place] [address] [place] [address] [phone] (Wo rk) 07/31/2022 Lab Laboratory Medicine Tony Rubalcava M. B., Sydnie, [place] [address] [place] [address] [phone] (Wo rk) 07/31/2022 Office Visit Transplant Tony Rubalcava M.B., Sydnie, [place] [address] [place] [address] [phone] (Nicolas wen) 07/31/2022 Appointment Radiology Toyn Rubalcava M.B., Sydnie, [place] [address] [place] [address] [phone] (Wo rk) 08/01/2022 Office Visit Transplant Tony Rubalcava M.B., Sydnie, MDebra [address] [place] [address] [phone] (Nicolas wen) 08/01/2022 Clinical Support Transplant Tony Rubalcava M.B., Sydnie, MDebra [address] [place] [address] [phone] (Nicolas wen) documented as of this encounter Visit Diagnoses Not on filedocumented in this encounter Additional Health Concerns Infection Onset Date Last Indicated Resolved Time [id number]: Has been isolated 11/16/2020 11/16/2020 11/29/2020 2:34 PM CDT for 14 days. She is not symptomatic. Assessment Noted Time PHQ-9 Depression Total Score: 4 01/30/2019 12:13 PM CD T documented as of this encounter Care Teams Wire Splicer Relationship Specialty Start Date End Date Elsewhere, Pcp PCP - General 09/17/19 documented as of this encounter
--- OUTSIDE RECORDS SUMMARY | 2022-05-25 13:11 | XMS_ITS | Encounter Summary ---
:1960 Author Organization [facility] Address [address] [place] [address] Care Team Providers Name Role Phone Elsewhere, Pcp Primary Care Provider Unavailable Reason for Visit Reason Onset Date Comments COVID-19 Remote Patient Monitoring 12/01/2020 Symptom Assessment 12/01/2020 Encounter Details Date Type Department Care Team Description 12/01/2020 Remote Monitoring Remote Patient Andrzej Leahy COVID -19 Remote Monitoring Beatrice, RDaviNDavi [facility]; [facility] Assessment [address] [facility] (Work) [place] [address] Social History Tobacco Use Types Packs/Day Years [...] How often do you attend baptist or worship 1 to 4 times per [...] documented as of this encounter Progress Notes Andrzej Leahy R.N. - 12/01/2020 8:22 PM CDT Remote Patient Monitoring - RN Symptomology Call Primary reason for today's contact: COVID-19 Symptom Assessment for oxygen recheck 93% Date of positive COVID-19 test result: 11/16/2020 Date COVID-19 symptoms began: 11/15/2020 Symptom Assessment: Home oxygen: No Current Flow Rate: NA Room air SpO2 result: RETEST 95% Today the patient reports the following symptoms: Dyspnea: Not present Cough: little tickle Chest Pain or chest tightness: Not present Fever (>100.4oF or subjective fever): Not present Patient report of date of last fever reducing medication: Tylenol at night Chills: Not present Sweats: Not present Diarrhea: Not present Vomiting: Not present Dizzy or lightheaded: Not present Patient reports the following additional symptoms: fatigued - a little more than usual and depends on if it is a dialysis day Patient Education: Patient and/or caregiver was instructed on: ?? Continue to monitor symptoms and complete vitals twice a day ?? Maintain isolation from others in your home and Keep monitoring symptoms The following references were used: Nursing judgement Plan of Care/Next Steps: Endpoint recommendation: Self-Isolation, quarantine at home and Home Care Patient is currently using supportive care measures of rest and over the counter medications. Caller agreeable to plan of care: Yes Patient agrees to continue daily vital sign monitoring and follow up call scheduled. Patient agreed to call Remote Patient Monitoring nurse with any questions or concerns in the interim. documented in this encounter Plan of Treatment Upcoming Encounters Date Type Specialty Care Team Description 06/01/2022 Telemedicine Pharmacy An Nicholas APRN C.N.PDavi, D.N.P., M.S.N. [address] [place] [address] [phone] (Nicolas wen) 07/31/2022 Lab Laboratory Medicine Tony Rubalcava M. B., Ch.BDavi, M.D. [address] [place] [address] [phone] (Nicolas wen) 07/31/2022 Lab Laboratory Medicine Tony Rubalcava M. B., ChDaviB., M.D. [address] [place] [address] [phone] (Nicolas wen) 07/31/2022 Office Visit Transplant Tony Rubalcava M.B., ChDaviB., M.D. [address] [place] [address] [phone] (Nicolas wen) 07/31/2022 Appointment Radiology Tony Rubalcava M.B., Ch.B., M.D. [address] [place] [address] [phone] (Nicolas wen) 08/01/2022 Office Visit Transplant Tony Rubalcava M.B., ChDaviB., M.D. [address] [place] [address] [phone] (Nicolas wen) 08/01/2022 Clinical Support Transplant Tony Rubalcava M.B., [place] Otoole [address] [place], [place] [phone] (Wo rk) documented as of this encounter Visit Diagnoses Diagnosis COVID-19 Infection documented in this encounter Additional Health Concerns Assessment Noted Time PHQ-9 Depression Total Score: 4 01/30/2019 12:13 PM CD T documented as of this encounter Care Teams Fish Bait Picker Relationship Specialty Start Date End Date Elsewhere, Pcp PCP - General 09/17/19 documented as of this encounter
--- OUTSIDE RECORDS SUMMARY | 2022-05-25 13:11 | XMS_ITS | Encounter Summary ---
:1960 Author Organization [facility] Address 200 [place] [address] Care Team Providers Name Role Phone Elsewhere, Pcp Primary Care Provider Unavailable Reason for Visit Reason Comments Results Encounter Details Date Type Department Care Team Description 11/17/2020 Virtual Visit Division of Brook Patel- Tad Infection (Primary Dx); Internal Medicine in [place] Mascorro Obstruction Ureter; [place], [place] 200 [facility] Complication Kidney Transplant (HCC); [address] [place], [place] Chronic Failure Renal End St age Renal Disease Dialysis Dependent (HCC) [place] [phone] Social History Tobacco Use Types Packs/Day Years [...] How often do you attend jain or anabaptism 1 to 4 times per [...] documented as of this encounter Progress Notes Brook Hager M.D. - 11/17/2020 8:13 AM CDT Images from the original note were not included. TELEPHONE COMMUNICATION NOTE This was a telephone notification to Ms. Wray to notify them that their PCR test for SARS-CoV-2(the virus that causes COVID-19) has returned positive. The patient was interviewed, but not personally examined. Pathology Tech: no Currently Ms. Wray has the following symptoms:chills;cough;congestion/rhinorrhea Date of symptom onset: 11/15/20 Since onset, symptoms have improved. Ms. Wray has the following risk factors for severe infection: Chronic Kidney Disease, stage IV or more severe;Immunocompromised or organ transplant;Hypertension Additional household members: 3; Some are sick without known COVID Received Moderna vaccination on September 10, 2020 and October 08, 2020 MASS Score: 7 PROBLEM LIST Patient Active Problem List Diagnosis ??? Chronic [...] Infection Urinary Tract Recurrent ??? Pain Neuropathic RESULTS Microbiology Results (last 10 days) Procedure Component Value - Date/Time SARS CoV-2 RNA, PCR, Varies Asymptomatic [[id number]] (Abnormal) Collected: 11/16/20 1415 Lab Status: Final result Specimen: Varies from Nasopharynx Updated: 11/16/201906 SARS CoV-2 RNA, PCR, Source Swab, Nasopharynx SARS CoV-2 RNA, PCR Detected Comment: SARS-CoV-2 RNA present. ----ADDITIONAL INFORMATION---- This test has received Emergency Use Authorization (EUA) by the U.S. Food and Drug Administration and is used per environmental aid's instructions. Performance characteristics were verified by [facility] in a manner consistent with CLIA requirements. Visit the CDC website: https://www.cdc.gov/coronavirus/ for the most recent guidelines on Coronavirus testing. Fact Sheet for Healthcare Providers: https://www.fda.gov/media/071750/download Fact Sheet for Patients: https://www.fda.gov/media/230556/download ASSESSMENT/PLAN #1 COVID-19 disease Upcoming glll-pd-atyk appointments: Hkhn-ma-xcfk appointments are scheduled within the next 20 days.These should be suspended pending a review for urgency by the coordinating care team. If non-urgent,they should be delayed until the patient has been deemed non-infectious from their COVID-19 infection or converted to vky-rtla-jc-face visits. Note that it may take up to 20 days for some patients to recover from their infection. If the appointments are urgent, the coordinating care team should contact us to discuss expedited return to campus procedures. The patient should not come on campus until notified that it is ok to do so. Recommendations routed to coordinating care team (Final Assembler: Dr. Martínez and Dr. Spear). Recommendations: Day 0 is: 11/15/20 Patient was referred for Complex Care remote monitoring through the [facility]. Follow up will occur through Remote Monitoring nursing. If the patient declines RPM, would be eligible forfollow up with CFCT nursing. Self-isolation: at least 20 days from symptom onset with at least 24 hours of symptom improvement and fever resolution w/o use of anti-pyretics (Tylenol, NSAIDs). Patient is not interested in learning about COVID experimental therapies Ms. Wray was advised to continue to monitor their symptoms including dyspnea, chest pain, cough, fevers, lightheadedness/dizziness and vomiting/diarrhea. If symptoms are worsening, please contact the [facility] remote monitoring team at [phone]. ??? Worsened shortness of breath ??? New or worsening cough ??? New productive cough or cough with blood ??? New chest pain or pain with breathing ??? Fevers, chills, sweats ??? Vomiting or diarrhea ??? Lightheadedness ? ? New temperature > 38.3 ??C ??? Fast heart rate ??? Fast breathing rate o If directed to the Emergency Room or other care facility, the patient was reminded to - Inform EMS of positive COVID result and wear a mask prior to EMS arrival if available. - If patient is well enough to transport themselves to the emergency room, they should drive themselves (not use taxi, ride-share or public transport). ??? We strongly recommend continuing self-isolation until advised otherwise. o Ms. Wray is aware that they need to: - Remain at home unless requiring medical care - Separate themselves from other people in the home - Avoid sharing personal household items - Clean and disinfect 'high-touch' surfaces daily - Wear a facemask when around other people and cover coughs/sneezes - Practice good hand hygiene - Avoid touching your eyes, nose, and mouth ??? Self-isolation should be continued until the following criteria are met: ??? Minimum isolation as specified above o AND ??? At least 1 day (24 hours) has passed since recovery defined as resolution of fever without the use of fever-reducing medications o AND ??? Improvement in symptoms (e.g., cough, shortness of breath, diarrhea) o The above isolation recommendation may need to be adjusted based on the clinical course. - https://www.youtube.com/watch?time_continue=6&v=NqKC1aJgQAq&feature=emb_logo o Testing prior to release from isolation is NOT recommended by CDC or [facility] Infection Prevention and Control for clinical purposes except in extremely rare cases. o The patient was also advised to follow final recommendations as per local public health department/occupational health if relevant. ??? Advised to contact their employer's occupational health division to notify them of positive test o If the patient and/or their employer have questions about return to work best practices, they should contact [facility] Occupational Medicine at [email or web address]. o The patient should receive approval from their employer's occupational health division before returning to work. ??? Recommend self isolation for all household members/close contacts. o If any of these individuals are immunocompromised or have serious chronic medical conditions, please have them contact their primary care physician to let them know they have been exposed to close contact with COVID-19 o If unwell, recommend contacting their health care provider. Presenting directly to the ED can be considered in the case of severe symptoms. o These individuals should call ahead to minimize wait times. The [facility] COVID Triage Line can be reached at [phone]. ??? Ms. Wray was advised that COVID-19 is a notifiable disease and that they will be contacted by public health for contact tracing. Please review the links below for additional education. o [facility] recommendations on isolation - https://www.[facility].org/patient-education?VID=VID-29440329 o Additional information about COVID-19 - https://www.cdc.gov/coronavirus/2019-ncov/ o Cognitive Behavior Therapy-Insomnia to help improve sleep - https://mccidcontent.[place].edu/PatientEducation/PatientLearning/index.html#/ o Building Resiliency During the COVID-19 Pandemic - https://[facility] center[facility] [place]/2020/PatientEducation/content/index.html#/ ??? Consider donating convalescent plasma once you have recovered from your illness (14 days after symptoms have resolved) o Survey to assess eligibility: https://redcap2.[place]/redcap/surveys/?s=3WXY6FMK5P and/ or contact [email or web address] o More information is available at - https://www.uscovidplasma.org/ - https://ccpp19.org/ - https://covidplasma.org/ This note is being cc'ed to the patient's primary care physician for their situational awareness only. The COVID-19 Frontline Care Team will follow up on next steps related to the COVID-19 infection. From a [facility] employee exposure standpoint if Ms. Wray was seen in person: No additional action needed if contact with the patient occurred while either: ??? Staff and patient were both wearing face masks OR ??? Staff were wearing face masks and eye protection If there is concern for staff exposure due to individual PPE breach, please touch base with Occupational Health. Brook Hager M.D. COVID-19 Frontline Care Team [facility] This was a virtual visit. The patient was not seen face to face because of COVID-19. Total time spent in counselin minutes Nicolas Oneill - 11/17/2020 8:13 AM CDT 11/17/20: Nursing calls to be coordinated through [facility] DOS as appropriate. documented in this encounter Plan of Treatment Upcoming Encounters Date Type Specialty Care Team Description 06/01/2022 Telemedicine Pharmacy An Nicholas APRN, C.N.P., D.N.P., M.S.N. [address] [place] [address] [phone] (Wo rk) 07/31/2022 Lab Laboratory Medicine Tony Rubalcava M. B., Ch.BDavi, [place] [address] [place] [address] [phone] (Wo rk) 07/31/2022 Lab Laboratory Medicine Tony Rubalcava M. B., Sydnie, [place] [address] [place] [address] [phone] (Wo rk) 07/31/2022 Office Visit Transplant Tony Rubalcava M.B., Sydnie, [place] [address] [place] [address] [phone] (Wo rk) 07/31/2022 Appointment Radiology Tony Rubalcava M.B., Syd[place], [place] [address] [place] [address] [phone] (Wo rk) 08/01/2022 Office Visit Transplant Tony Rubalcava M.B., [place], [place] [address] [place] [address] [phone] (Wo rk) 08/01/2022 Clinical Support Transplant Tony Rubalcava M.B., Sydnie, [place] [address] [place] [address] [phone] (Wo rk) documented as of this encounter Visit Diagnoses Diagnosis COVID-19 Infection - Primary Obstruction Ureter Complication Kidney Transplant (HCC) Chronic Failure Renal End Stage Renal Di sease Dialysis Dependent (HCC) documented in this encounter Additional Health Concerns Infection Onset Date Last Indicated Resolved Time [id number]: Has been isolated 11/16/2020 11/16/2020 11/29/2020 2:34 PM CDT for 14 days. She is not symptomatic. Assessment Noted Time PHQ-9 Depression Total Score: 4 01/30/2019 12:13 PM CD T documented as of this encounter Care Teams Director Underwriter Sales Relationship Specialty Start Date End Date Elsewhere, Pcp PCP - General 09/17/19 documented as of this encounter
--- OUTSIDE RECORDS SUMMARY | 2022-05-25 13:11 | XMS_ITS | Encounter Summary ---
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 Chronic Failure Renal End Stage Renal Di [facility] Dialysis Dependent (HCC) [facility] in [address] [place] [address] [place] [id number] [place], [place] [phone] (Work) [phone] Social History Tobacco Use Types Packs/Day Years [...] How often do you attend scientologist or advent 1 to 4 times per [...] An Nicholas APRN C.N.P., D.N.P., M.S.N. [address] [place] [address] [phone] (Nicolas wen) 07/31/2022 Lab Laboratory Medicine Tony Rubalcava M. B., Ch.B., M.Michelle. [address] [place] [address] [phone] (Wo behzad) 07/31/2022 Lab Laboratory Medicine Tony Rubalcava M. B., ChDaviBDavi, MElvia. [address] [place] [address] [phone] ( behzad) 07/31/2022 Office Visit Transplant Tony Rubalcava M.B., ChBurke, MElvia. 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 She is not symptomatic. Assessment Noted Time PHQ-9 Depression Total Score: 4 01/30/2019 12:13 PM CD T documented as of this encounter Care Teams Box Sealing Inspector Relationship Specialty Start Date End Date Elsewhere, Pcp PCP - General 09/17/19 documented as of this encounter
--- OUTSIDE RECORDS SUMMARY | 2022-05-25 13:11 | XMS_ITS | Encounter Summary ---
:1960 Author Organization [facility] Address [address] [place] [address] Care Team Providers Name Role Phone Elsewhere, Pcp Primary Care Provider Unavailable Reason for Visit Reason Onset Date Comments COVID-19 Remote Patient Monitoring 11/24/2020 Symptom Assessment 11/24/2020 Encounter Details Date Type Department Care Team Description 11/24/2020 Remote Monitoring Remote Patient Kyree Stephanierick VINSON D-19 Remote Monitoring L, R.N. Patient Monitoring; [facility] [address] [facility] Symptom Assessment [address] [place] [phone] Social History Tobacco Use Types Packs/Day Years [...] How often do you attend jain or moravian 1 to 4 times per [...] Nicholas APRN, C.N.P., D.N.P., M.S.N. [address] [place] [address] 55 [phone] (Nicolas wen) 07/31/2022 Lab Laboratory Medicine Tony Rubalcava M. B., ChDaviBDavi, M.D. [address] [place] [address] 55 [phone] (Nicolas wen) 07/31/2022 Lab Laboratory Medicine Tony Rubalcava M. B., ChDaviBDavi, M.D. [address] [place] [address] 55 [phone] (Nicolas wen) 07/31/2022 Office Visit Transplant Tony Rubalcava M.B., ChBurke, MElvia. [address] [place] [address] 55 [phone] (Nicolas wen) 07/31/2022 Appointment Radiology Tony Rubalcava M.B., Mukund Otoole [address] [place] [address] 55 [phone] (Wo rk) 08/01/2022 Office Visit Transplant Tony Rubalcava M.B., Mukund Otoole [address] [place] [address] 55 [phone] (Wo behzad) 08/01/2022 Clinical Support Transplant Tony Rubalcava M.B., Mukund Otoole [address] [place] [address] 55 [phone] (Nicolas wen) documented as of this encounter Visit Diagnoses Not on filedocumented in this encounter Additional Health Concerns Infection Onset Date Last Indicated Resolved Time [id number]: Has been isolated 11/16/2020 11/16/2020 11/29/2020 2:34 PM CDT for 14 days. She is not symptomatic. Assessment Noted Time PHQ-9 Depression Total Score: 4 01/30/2019 12:13 PM CD T documented as of this encounter Care Teams Fire Production Operator Relationship Specialty Start Date End Date Elsewhere, Pcp PCP - General 09/17/19 documented as of this encounter
--- OUTSIDE RECORDS SUMMARY | 2022-05-25 13:11 | XMS_ITS | Encounter Summary ---
:1960 Author Organization [facility] Address [address] [place] [address] Care Team Providers Name Role Phone Elsewhere, Pcp Primary Care Provider Unavailable Reason for Visit Reason Onset Date Comments Graduation 12/05/2020 Patient has graduate d from the Remote Monitoring Program. Encounter Details Date Type Department Care Team Description 12/05/2020 Remote Monitoring Remote Patient Franchesca Allen Graduation (Patient Monitoring [phone] has graduated from [facility] 5 (Work) the Remote Monitoring [address] [place] [address]. ) [place] [address] Social History Tobacco Use Types Packs/Day Years [...] How often do you attend spiritism or sikhism 1 to 4 times per [...] Nicholas APRN, C.N.P., D.N.P., M.S.N. [address] [place] [address] [phone] (Wo rk) 07/31/2022 Lab Laboratory Medicine Tony Rubalcava M. B., ChBurke, MElvia. [address] [place] [address] 55 [phone] (Wo rk) 07/31/2022 Lab Laboratory Medicine Tony Rubalcava M. B., ChDaviBDavi, MDebra [address] [place] [address] 55 [phone] (Wo rk) 07/31/2022 Office Visit Transplant Tony Rubalcava M.B., ChBurke, MDebra [address] [place] [address] [phone] (Wo rk) 07/31/2022 Appointment Radiology Tony Rubalcava M.B., ChBurke, M.D. [address] [place] [address] 55 [phone] (Wo rk) 08/01/2022 Office Visit Transplant Tony Rubalcava M.B., Mukund Otoole [address] [place] [address] [phone] (Wo rk) 08/01/2022 Clinical Support Transplant Tony Rubalcava M.B., Mukund Otoole [address] [place] [address] [phone] (Wo rk) documented as of this encounter Visit Diagnoses Diagnosis COVID-19 Infection documented in this encounter Additional Health Concerns Assessment Noted Time PHQ-9 Depression Total Score: 4 01/30/2019 12:13 PM CD T documented as of this encounter Care Teams Regional Flatbed Truck Driver Relationship Specialty Start Date End Date Elsewhere, Pcp PCP - General 09/17/19 documented as of this encounter
--- OUTSIDE RECORDS SUMMARY | 2022-05-25 13:11 | XMS_ITS | Encounter Summary ---
:1960 Author Organization [facility] Address [address] [place] [address] Care Team Providers Name Role Phone Elsewhere, Pcp Primary Care Provider Unavailable Reason for Visit Reason Onset Date Comments COVID-19 Remote Patient Monitoring 11/20/2020 Symptom Assessment 11/20/2020 Encounter Details Date Type Department Care Team Description 11/20/2020 Remote Monitoring Remote Patient Andrzej Leahy COVID -19 Remote Monitoring Beatrice, RDaviNDavi [facility] [address] [facility] (Work) [place] [address] Social History Tobacco Use Types Packs/Day Years [...] How often do you attend worship or advent 1 to 4 times per [...] encounter Progress Notes Andrzej Leahy R.N. - 11/20/2020 5:12 PM CDT Remote Patient Monitoring - RN Symptomology Call Primary reason for today's contact: COVID-19 Symptom Assessment for oxygen 93% Date of positive COVID-19 test result: 11/15/2020 Date COVID-19 symptoms began: 11/16/2020 Symptom Assessment: Home oxygen: No Current Flow Rate: NA Room air SpO2 result: RETEST Today the patient reports the following symptoms: Dyspnea: Not present Cough: Improving; little bit of a cough Chest Pain or chest tightness: Not present Fever (>100.4oF or subjective fever): Not present Patient report of date of last fever reducing medication: none Chills: Not present Sweats: Not present Diarrhea: Not present Vomiting: Not present Dizzy or lightheaded: Not present Patient reports the following additional symptoms: none Patient Education: Patient and/or caregiver was instructed on: ?? Continue to monitor for symptoms and test twice a day. Rest for several minutes, prior to testing ?? Keep monitoring symptoms The following references were used: Nursing judgement Plan of Care/Next Steps: Endpoint recommendation: Self-Isolation, quarantine at home and Home Care Patient is currently using supportive care measures of rest. Caller agreeable to plan of care: Yes Patient agrees to continue daily vital sign monitoring and follow up call scheduled. Patient agreed to call Remote Patient Monitoring nurse with any questions or concerns in the interim. documented in this encounter Plan of Treatment Upcoming Encounters Date Type Specialty Care Team Description 06/01/2022 Telemedicine Pharmacy Cristopher Ansarah Yap APRN, C.N.PDavi, D.N.P., M.S.N. [address] [place] [address] [phone] (Wo rk) 07/31/2022 Lab Laboratory Medicine Tony Rubalcava M. B., Sydnie, Mukund [address] [place] [address] [phone] (Wo rk) 07/31/2022 Lab Laboratory Medicine Tony Rubalcava M. B., Sydnie, Mukund [address] [place] [address] [phone] (Wo rk) 07/31/2022 Office Visit Transplant Tony Rubalcava M.B., Sydnie, Mukund [address] [place] [address] [phone] (Wo rk) 07/31/2022 Appointment Radiology Tony Rubalcava M.B., ChBurke, Mukund [address] [place] [address] 55 [phone] (Wo rk) 08/01/2022 Office Visit Transplant Tony Rubalcava M.B., Sydnie, Mukund [address] [place] [address] 55 [phone] (Wo rk) 08/01/2022 Clinical Support Transplant Tony Rubalcava M.B., Sydnie, MDebra [address] [place] [address] [phone] (Wo rk) documented as of this encounter Visit Diagnoses Not on filedocumented in this encounter Additional Health Concerns Infection Onset Date Last Indicated Resolved Time [id number]: Has been isolated 11/16/2020 11/16/2020 11/29/2020 2:34 PM CDT for 14 days. She is not symptomatic. Assessment Noted Time PHQ-9 Depression Total Score: 4 01/30/2019 12:13 PM CD T documented as of this encounter Care Teams Social Media Job Titles Relationship Specialty Start Date End Date Elsewhere, Pcp PCP - General 09/17/19 documented as of this encounter
--- OUTSIDE RECORDS SUMMARY | 2022-05-25 13:11 | XMS_ITS | Encounter Summary ---
:1960 Author Organization [facility] Address [address] [place] [address] Care Team Providers Name Role Phone Elsewhere, Pcp Primary Care Provider Unavailable Reason for Visit Reason Onset Date Comments COVID-19 Remote Patient Monitoring 11/18/2020 Intake Assessment 11/18/2020 Encounter Details Date Type Department Care Team Description 11/18/2020 Remote Monitoring Remote Patient Kris, YENIID-19 Remote Monitoring Soraya Mascorro R.N. Patient Monitoring; [facility] Intake Assessment [address] [facility] (Work) [place] [address] Social History Tobacco Use Types Packs/Day Years [...] 12/23/2021 relatives? How often do you attend jehovah's witness or buddhism 1 to 4 times per year 12/23/2021 services? Do you belong to any clubs or organizations such No 12/23/2021 as jehovah's witness groups, unions, fraternal or athletic groups, or [...] An Nicholas APRN C.N.P., D.N.P., M.S.N. [address] [place] [address] [phone] (Wo rk) 07/31/2022 Lab Laboratory Medicine Tony Rubalcava M. B., Sydnie, MDebra [address] [place] [address] [phone] (Wo rk) 07/31/2022 Lab Laboratory Medicine Tony Rubalcava M. B., ChBurke, MDebra [address] [place] [address] 55 [phone] (Wo rk) 07/31/2022 Office Visit Transplant Tony Rubalcava M.B., Sydnie, MDebra [address] [place] [address] [phone] (Wo rk) 07/31/2022 Appointment Radiology Tony Rubalcava M.B., Ch.BMukund Tomlinson [address] [place] [address] 55 [phone] (Wo rk) 08/01/2022 Office Visit Transplant Tony Rubalcava M.B., Mukund Otoole [address] [place] [address] [phone] (Wo rk) 08/01/2022 Clinical Support Transplant Tony Rubalcava M.B., Mukund Otoole 200 [place], [place] 55 [phone] (Wo rk) documented as of this encounter Visit Diagnoses Not on filedocumented in this encounter Additional Health Concerns Infection Onset Date Last Indicated Resolved Time [id number]: Has been isolated 11/16/2020 11/16/2020 11/29/2020 2:34 PM CDT for 14 days. She is not symptomatic. Assessment Noted Time PHQ-9 Depression Total Score: 4 01/30/2019 12:13 PM CD T documented as of this encounter Care Teams Dry Kiln Operator Helper Relationship Specialty Start Date End Date Elsewhere, Pcp PCP - General 09/17/19 documented as of this encounter
--- OUTSIDE RECORDS SUMMARY | 2022-05-25 13:11 | XMS_ITS | Encounter Summary ---
:1960 Author Organization [facility] Address 200 [place] [address] Care Team Providers Name Role Phone Elsewhere, Pcp Primary Care Provider Unavailable Encounter Details Date Type Department Care Team Description 11/17/2020 Orders Only Department of Urology Geraldo Spear eteral Stent Exchange in Catrachita Hernandez M.D. (Primary Dx) [place] [address] [place] [address] 200 [place] [phone] Social History Tobacco Use Types Packs/Day Years [...] How often do you attend protestant or yarsani 1 to 4 times per [...] An Nicholas APRN C.N.P., D.N.P., M.S.N. [address] [place] [address] 55 [phone] (Wo rk) 07/31/2022 Lab Laboratory Medicine Tony Rubalcava M. B., ChBurke, MDebra [address] [place] [address] 55 [phone] (Wo rk) 07/31/2022 Lab Laboratory Medicine Tony Rubalcava M. B., ChBurke, MDebra [address] [place] [address] 55 [phone] (Wo rk) 07/31/2022 Office Visit Transplant Tony Rubalcava M.B., ChBurke, MDebra [address] [place] [address] 55 [phone] (Wo rk) 07/31/2022 Appointment Radiology Tony Rubalcava M.B., Mukund Otoole [address] [place], [place] 55 [phone] (Wo rk) 08/01/2022 Office Visit Transplant Tony Rubalcava M.B., Mukund Otoole 200 [place], [place] 55 [phone] (Wo rk) 08/01/2022 Clinical Support Transplant Tony Rubalcava M.B., Mukund Otoole 200 [place], [place] [phone] (Wo rk) documented as of this encounter Results (ABNORMAL) Bacterial Culture, Aerobic [...] Organization Address City/State/ZIP Code Phon e Number [facility]- [address] [place] [address] [phone] [facility] [place] [address] [address] documented in this encounter Visit Diagnoses Diagnosis Ureteral Stent Exchange - Primary documented in this encounter Additional Health Concerns Infection Onset Date Last Indicated Resolved Time [id number]: Has been isolated 11/16/2020 11/16/2020 11/29/2020 2:34 PM CDT for 14 days. She is not symptomatic. Assessment Noted Time PHQ-9 Depression Total Score: 4 01/30/2019 12:13 PM CD T documented as of this encounter Care Teams [employer] Executive Director Relationship Specialty Start Date End Date Elsewhere, Pcp PCP - General 09/17/19 documented as of this encounter
--- OUTSIDE RECORDS SUMMARY | 2022-05-25 13:11 | XMS_ITS | Encounter Summary ---
:1960 Author Organization [facility] Address [address] [place] [address] Care Team Providers Name Role Phone Elsewhere, Pcp Primary Care Provider Unavailable Reason for Visit Reason Onset Date Comments COVID-19 Remote Patient Monitoring 11/29/2020 Symptom Assessment 11/29/2020 Encounter Details Date Type Department Care Team Description 11/29/2020 Remote Monitoring Remote Patient Kyree Stephanie VINSON D-19 Remote Monitoring L, R.N. Patient Monitoring; [facility] [address] [facility] Symptom Assessment [address] [place] [phone] Social History Tobacco Use Types Packs/Day Years [...] How often do you attend yazidism or samaritan 1 to 4 times per [...] documented as of this encounter Progress Notes Stephanie Adorno R.N. - 11/29/2020 8:37 PM CDT Remote Patient Monitoring - RN Symptomology Call Primary reason for today's contact: COVID-19 Symptom Assessment for SpO2 93% Date of positive COVID-19 test result: 11/16/2020 Date COVID-19 symptoms began: 11/15/2020 Symptom Assessment: Home oxygen: No Room air SpO2 result: 94% Today the patient reports the following symptoms: Dyspnea: Not present Cough: Improving Chest Pain or chest tightness: Not present Fever (>100.4oF or subjective fever): Not present Patient report of date of last fever reducing medication: Tylenol at night only Chills: Not present Sweats: Not present Diarrhea: Not present Vomiting: Not present Dizzy or lightheaded: Not present Patient reports the following additional symptoms: fatigue, weakness Patient Education: Patient and/or caregiver was instructed on: ?? Self-care plan - continue supportive care measures at home ?? Start deep breathing exercises with a goal of ten times per hour. ?? Patient/caregiver able to teach back ?? Maintain isolation from others in your home and Keep monitoring symptoms The following references were used: [facility] novel coronavirus (COVID- 19) resources, CDC website https://www.cdc.gov/coronavirus/2019- ncov/summary.html, Nursing judgement Plan of Care/Next Steps: Endpoint recommendation: Self-Isolation, quarantine at home and Home Care Patient is currently using supportive care measures of increasing fluid intake, rest and over the counter medications. Caller [...] An Nicholas APRN, C.N.P., D.N.P., M.S.N. [address] [place] [address] [phone] (Wo rk) 07/31/2022 Lab Laboratory Medicine Tony Rubalcava M. B., Sydnie, MDebra [address] [place] [address] [phone] (Wo rk) 07/31/2022 Lab Laboratory Medicine Tony Rubalcava M. B., Sydnie, MDebra [address] [place] [address] [phone] (Wo rk) 07/31/2022 Office Visit Transplant Tony Rubalcava M.B., ChBurke, MDebra [address] [place] [address] [phone] (Wo rk) 07/31/2022 Appointment Radiology Tony Rubalcava M.B., Sydnie, MDebra [address] [place] [address] 55 [phone] (Wo rk) 08/01/2022 Office Visit Transplant Tony Rubalcava M.B., Ch.BMukund Tomlinson [address] [place], [place] 55 [phone] (Wo rk) 08/01/2022 Clinical Support Transplant Tony Rubalcava M.B., Mukund Otoole [address] [place], [place] 55 [phone] (Wo rk) documented as of this encounter Visit Diagnoses Diagnosis COVID-19 Infection documented in this encounter Additional Health Concerns Infection Onset Date Last Indicated Resolved Time [id number]: Has been isolated 11/16/2020 11/16/2020 11/29/2020 2:34 PM CDT for 14 days. She is not symptomatic. Assessment Noted Time PHQ-9 Depression Total Score: 4 01/30/2019 12:13 PM CD T documented as of this encounter Care Teams Sewing Department Supervisor Relationship Specialty Start Date End Date Elsewhere, Pcp PCP - General 09/17/19 documented as of this encounter
--- OUTSIDE RECORDS SUMMARY | 2022-05-25 13:11 | XMS_ITS | Encounter Summary ---
:1960 Author Organization [facility] Address [address] [place] [address] Care Team Providers Name Role Phone Elsewhere, Pcp Primary Care Provider Unavailable Encounter Details Date Type Department Care Team Description 11/17/2020 Episode Changes Remote Patient Monit radhaKatie Almeida [facility] [address] [place] [address] Social History Tobacco Use Types Packs/Day Years [...] How often do you attend jainism or jewish 1 to 4 times per [...] An Nicholas APRN C.N.P., D.N.P., M.S.N. [address] [place] [address] 55 [phone] (Nicolas wen) 07/31/2022 Lab Laboratory Medicine Tony Rubalcava M. B., ChBurke, MElvia. [address] [place] [address] 55 [phone] (Nicolas wen) 07/31/2022 Lab Laboratory Medicine Tony Rubalcava M. B., ChBurke, MElvia. [address] [place] [address] 55 [phone] (Nicolas wen) 07/31/2022 Office Visit Transplant Tony Rubalcava M.B., ChDaviBDavi, MElvia. [address] [place] [address] 55 [phone] (Nicolas wen) 07/31/2022 Appointment Radiology Tony Rubalcava M.B., ChDaviBDavi, MDaviD. [address] [place] [address] 55 [phone] (Nicolas wen) 08/01/2022 Office Visit Transplant Tony Rubalcava M.B., Mukund Otoole [address] [place], [place] 55 [phone] (Wo rk) 08/01/2022 Clinical Support Transplant Tony Rubalcava M.B., Mukund Otoole [address] [place], [place] 55 [phone] (Wo behzad) documented as of this encounter Visit Diagnoses Not on filedocumented in this encounter Additional Health Concerns Infection Onset Date Last Indicated Resolved Time [id number]: Has been isolated 11/16/2020 11/16/2020 11/29/2020 2:34 PM CDT for 14 days. She is not symptomatic. Assessment Noted Time PHQ-9 Depression Total Score: 4 01/30/2019 12:13 PM CD T documented as of this encounter Care Teams Mining Analyst Relationship Specialty Start Date End Date Elsewhere, Pcp PCP - General 09/17/19 documented as of this encounter
--- OUTSIDE RECORDS SUMMARY | 2022-05-25 13:11 | XMS_ITS | Encounter Summary ---
:1960 Author Organization [facility] Address [address] [place] [address] Care Team Providers Name Role Phone Elsewhere, Pcp Primary Care Provider Unavailable Encounter Details Date Type Department Care Team Description 11/22/2020 Clinical Communication Department of Urology Geraldo Spear in Catrachita Hernandez M.D. [address] 200 [place] [phone] [phone] Social History Tobacco Use Types Packs/Day Years [...] How often do you attend episcopalian or muslim 1 to 4 times per [...] Nicholas APRN, C.N.P., D.N.P., M.S.N. [address] [place] [address] 55 [phone] (Wo rk) 07/31/2022 Lab Laboratory Medicine Tony Rubalcava M. B., ChBurke, MDebra [address] [place] [address] 55 [phone] (Wo rk) 07/31/2022 Lab Laboratory Medicine Tony Rubalcava M. B., ChBurke, MDebra [address] [place] [address] 55 [phone] (Wo rk) 07/31/2022 Office Visit Transplant Tony Rubalcava M.B., ChBurke, MDebra [address] [place] [address] 55 [phone] (Wo rk) 07/31/2022 Appointment Radiology Tony Rubalcava M.B., ChBurke, MDebra [address] [place] [address] 55 [phone] (Wo rk) 08/01/2022 Office Visit Transplant Tony Rubalcava M.B., Mukund Otoole [address] [place], [place] 55 [phone] (Wo rk) 08/01/2022 Clinical Support Transplant Tony Rubalcava M.B., Mukund Otoole [address] [place], [place] 55 [phone] (Wo rk) documented as of this encounter Visit Diagnoses Not on filedocumented in this encounter Additional Health Concerns Infection Onset Date Last Indicated Resolved Time [id number]: Has been isolated 11/16/2020 11/16/2020 11/29/2020 2:34 PM CDT for 14 days. She is not symptomatic. Assessment Noted Time PHQ-9 Depression Total Score: 4 01/30/2019 12:13 PM CD T documented as of this encounter Care Teams Tree Planter Relationship Specialty Start Date End Date Elsewhere, Pcp PCP - General 09/17/19 documented as of this encounter
--- OUTSIDE RECORDS SUMMARY | 2022-05-25 13:11 | XMS_ITS | Encounter Summary ---
:1960 Author Organization [facility] Address [address] [place] [id number] Care Team Providers Name Role Phone Elsewhere, Pcp Primary Care Provider Unavailable Reason for Visit Reason Onset Date Comments COVID-19 Remote Patient Monitoring 12/05/2020 Follow-up 12/05/2020 assess for graduatimiladys n Encounter Details Date Type Department Care Team Description 12/05/2020 Remote Monitoring Remote Patient Andrzej Leahy COVTEE -19 Remote Monitoring Beatrice RShlomo. [facility]ess [address] (Work) for graduation) [place] [address] Social History Tobacco Use Types Packs/Day Years [...] How often do you attend caodaism or hoahaoism 1 to 4 times per [...] encounter Progress Notes Andrzej Leahy R.N. - 12/05/2020 10:48 AM CDT Remote Monitoring COVID-19 Program Graduation Patient has met established standards and the provider plan of care for COVID-19 disease and thus meets criteria for graduation for the COVID-19 Remote Monitoring program. Patient's vitals have been stable, symptoms improved and has been afebrile for at least 24 hours without the use of fever reducingmedication. Patient is knowledgeable about when to notify the care team with concerns/symptoms. The patient has been be directed to contact their primary care provider with any concerns/follow-up. Home oxygen: No Current Flow Rate: NA Recent SpO2 result: 97% Today the patient reports the following symptoms: Dyspnea: Not present Cough: Improving; a whole lot better Chest Pain or chest tightness: Not present Rhinorrhea/congestion: Not present Sore throat: Not present Fever (>100.4oF or subjective fever): Never had Patient report of date of last fever reducing medication: tylenol 12/04 AM for headache Chills: Not present Sweats: Not present Myalgias: Not present Diarrhea: Not present Additional symptoms reported: Vomiting: Not present Abdominal pain: Not present Dizzy or lightheaded: Not present Headache: Resolved Fatigue: Improving Loss of smell: Not present Loss of taste: Not present Leg swelling:Not present Appetite: Improving Next Steps: Patient informed of the remote monitoring equipment retrieval process. Patient agreed to call RemotePatient Monitoring nurse with any questions or concerns in the interim. documented in this encounter Plan of Treatment Upcoming Encounters Date Type Specialty Care Team Description 06/01/2022 Telemedicine Pharmacy An Nicholas APRN, C.N.P., D.N.P., M.S.N. [address] [place] [address] [phone] (Nicolas wen) 07/31/2022 Lab Laboratory Medicine Tony Rubalcava M. B., Sydnie, MDebra [address] [place] [address] [phone] (Nicolas wen) 07/31/2022 Lab Laboratory Medicine Tony Rubalcava M. B., Sydnie, MDebra [address] [place] [address] [phone] (Nicolas wen) 07/31/2022 Office Visit Transplant Tony Rubalcava M.B., ChBurke, MDebra [address] [place] [address] [phone] (Nicolas wen) 07/31/2022 Appointment Radiology Tony Rubalcava M.B., ChDaviBDavi, MDebra [address] [place] [address] [phone] (Nicolas wen) 08/01/2022 Office Visit Transplant Tony Rubalcava M.B., ChBurke, MDaviDDavi [address] [place] [address] [phone] (Nicolas wen) 08/01/2022 Clinical Support Transplant Tony Rubalcava M.B., Mukund [place] [address] [place] [address] [phone] (Wo rk) documented as of this encounter Visit Diagnoses Not on filedocumented in this encounter Additional Health Concerns Assessment Noted Time PHQ-9 Depression Total Score: 4 01/30/2019 12:13 PM CD T documented as of this encounter Care Teams Silver Chaser Relationship Specialty Start Date End Date Elsewhere, Pcp PCP - General 09/17/19 documented as of this encounter
--- OUTSIDE RECORDS SUMMARY | 2022-05-25 13:11 | XMS_ITS | Encounter Summary ---
:1960 Author Organization [facility] Address [address] [place] [id number] Care Team Providers Name Role Phone Elsewhere, Pcp Primary Care Provider Unavailable Reason for Visit Reason Onset Date Comments Symptom Assessment 11/27/2020 COVID-19 Remote Patient Monitoring 11/27/2020 Encounter Details Date Type Department Care Team Description 11/27/2020 Remote Monitoring Remote Patient Isabella Mayorga Symptom Assessment; Monitoring A, R.NDavi COVID-19 Remote [facility] [address] [place] [address] Patient Monitoring [address] [place] [phone] Social History Tobacco Use Types Packs/Day Years [...] How often do you attend mandaeism or sikh 1 to 4 times per [...] documented as of this encounter Progress Notes Isabella Mayorga RRalf - 11/27/2020 8:11 PM CDT Remote Patient Monitoring - RN Symptomology Call Primary reason for today's contact: COVID-19 Symptom Assessment for new sweats and diarrhea Date of positive COVID-19 test result: 11/16 Date COVID-19 symptoms began: 11/15 Symptom Assessment: Home oxygen: No Recent SpO2 result: 94% Today the patient reports the following symptoms: Dyspnea: Not present Cough: Unchanged. Patient reports productive cough: Yes, with unknown sputum, Chest Pain or chest tightness: Not present Fever (>100.4oF or subjective fever): Not present Patient report of date of last fever reducing medication: none Chills: New, started on 11/27 Sweats: Not present Diarrhea: New, started on 11/27. Patient is having diarrhea 4-5 times a day.- diarrhea has now subsided Vomiting: Not present Dizzy or lightheaded: Not present Patient reports the following additional symptoms: none Patient Education: Patient and/or caregiver was instructed on: ?? Self-care plan - ?? Adequate fluid intake per nephrology recommendations ?? Avoid fluids with high potassium ?? Practice pulmonary hygiene ?? May take Tylenol for the chills. ? Patient/caregiver able to teach back ?? Wash hands often with soap and water for at least 20 seconds, If soap and water aren't available,use hand database analyst that contains at least 60% alcohol, Avoid touching your eyes, nose, and mouth, Clean and disinfect frequently touched surfaces daily, Maintain isolation from others in your home [...] Nicholas APRN C.N.P., D.N.P., M.S.N. [address] [place] [address] [phone] (Wo rk) 07/31/2022 Lab Laboratory Medicine Tony Rubalcava M. B., Sydnie, MDebra [address] [place] [address] [phone] (Wo rk) 07/31/2022 Lab Laboratory Medicine Tony Rubalcava M. B., ChBurke, MDebra [address] [place] [address] [phone] (Wo rk) 07/31/2022 Office Visit Transplant Tony Rubalcava M.B., Sydnie, MDebra [address] [place] [address] [phone] (Wo rk) 07/31/2022 Appointment Radiology Tony Rubalcava M.B., ChBurke, MDebra [address] [place] [address] [phone] (Wo rk) 08/01/2022 Office Visit Transplant Tony Rubalcava M.B., Mukund Otoole [address] [place] [address] [phone] (Wo rk) 08/01/2022 Clinical Support Transplant Tony Rubalcava M.B., Mukund Otoole [address] [place] [address] [phone] (Wo rk) documented as of this encounter Visit Diagnoses Not on filedocumented in this encounter Additional Health Concerns Infection Onset Date Last Indicated Resolved Time [id number]: Has been isolated 11/16/2020 11/16/2020 11/29/2020 2:34 PM CDT for 14 days. She is not symptomatic. Assessment Noted Time PHQ-9 Depression Total Score: 4 01/30/2019 12:13 PM CD T documented as of this encounter Care Teams Subway Guard Relationship Specialty Start Date End Date Elsewhere, Pcp PCP - General 09/17/19 documented as of this encounter
--- OUTSIDE RECORDS SUMMARY | 2022-05-25 13:11 | XMS_ITS | Encounter Summary ---
:1960 Author Organization [facility] Address 200 [place] [address] Care Team Providers Name Role Phone Elsewhere, Pcp Primary Care Provider Unavailable Encounter Details Date Type Department Care Team Description 11/16/2020 Orders Only Department of [place]rology in [place] Mukund 200 [facility] 200 [place] [address] [place] [address] [phone] (Wo rk) Social History Tobacco Use Types [...] How often do you attend mandaen or congregational 1 to 4 times per [...] An Nicholas APRN C.N.P., D.N.P., M.S.N. [address] [place] [address] [phone] (Wo rk) 07/31/2022 Lab Laboratory Medicine Tony Rubalcava M. B., Sydnie, MDebra [address] [place] [address] [phone] (Wo rk) 07/31/2022 Lab Laboratory Medicine Tony Rubalcava M. B., ChBurke, MDebra [address] [place] [address] [phone] (Wo rk) 07/31/2022 Office Visit Transplant Tony Rubalcava M.B., Sydnie, MDebra [address] [place] [address] [phone] (Wo rk) 07/31/2022 Appointment Radiology Tony Rubalcava M.B., ChBurke, Mukund [address] [place] [address] [place] [phone] (Wo rk) 08/01/2022 Office Visit Transplant Tony Rubalcava M.B., Mukund [place]ole [address] [place] [address] [phone] (Wo rk) 08/01/2022 Clinical Support Transplant Tony Rubalcava M.B., Mukund [place] 200 [place], [place] [phone] (Wo rk) documented as of this encounter Visit Diagnoses Not on filedocumented in this encounter Additional Health Concerns Infection Onset Date Last Indicated Resolved Time COVID19 Pending 11/16/2020 11/16/2020 11/16/2020 7:07 PM CDT [id number]: Has been isolated 11/16/2020 11/16/2020 11/29/2020 2:34 PM CDT for 14 days. She is not symptomatic. Assessment Noted Time PHQ-9 Depression Total Score: 4 01/30/2019 12:13 PM CD T documented as of this encounter Care Teams Senior Technical Support Engineer Relationship Specialty Start Date End Date Elsewhere, Pcp PCP - General 09/17/19 documented as of this encounter
--- OUTSIDE RECORDS SUMMARY | 2022-05-25 13:11 | XMS_ITS | Encounter Summary ---
:1960 Author Organization [facility] Address [address] [place] [id number] Care Team Providers Name Role Phone Elsewhere, Pcp Primary Care Provider Unavailable Encounter Details Date Type Department Care Team Description 11/15/2020 Hospital Encounter Department of [facility] Renal Laboratory Medicine CHIEF ENGINEER, C.N.P., (HCC) and Pathology[place] [address] [place] [phone] [place] [address] [place], [place] (Work) [phone] Social History Tobacco Use Types Packs/Day Years [...] How often do you attend holiness or quaker 1 to 4 times per [...] 1 tablet (5 mg 90 tablet 3 03/0 08/202007/08/2021 mg tablet total) by mouth every evening. Bystolic 10 mg TAKE 1 TABLET(10 MG) 90 tablet 3 08/30/2020 04/07/2022 tabletIndications: BY MOUTH DAILY Transplant Renal (HCC) calcium carbonate Chew 2 tablets 2 0 0 04/07/2022 (TUMS) 500 mg (200 mg (two) times a day calcium) chewable with meals. Lunch tablet and dinner. chlorhexidine Apply 1 application 30 mL 0 [...] renal Take 1 tablet by 30 tablet 06/06/2019 09/22/2021 failure (DIALYVITE) mouth every evening. 100-1 mg tablet mycophenolate TAKE 1 CAPSULE(250 180 capsule 3 03/05/2020 (CELLCEPT) 250 mg MG) BY MOUTH TWICE capsule DAILY. DO NOT BREAK, CUT, OR OPEN CAPSULES predniSONE (DELTASONE) Take 1 tablet (5 mg 90 tablet 01/1902/28/2021 5 mg tablet total) by mouth daily. rosuvastatin (CRESTOR) TAKE 1 TABLET BY 90 tablet 3 020 01/13/2021 5 mg tablet MOUTH DAILY. sevelamer (RENVELA) 800 Take 1 tablet (800 90 tablet 3 03/202001/18/2021 mg tablet mg total) by mouth daily with breakfast. Take with largest meal of the day tacrolimus (PROGRAF) 1 Take 3 capsules (3 540 capsule 3 04/202003/07/2021 mg capsule mg total) by mouth 2 (two) times a day. documented as of this encounter Plan of Treatment Upcoming Encounters Date Type Specialty Care Team Description 06/01/2022 Telemedicine Pharmacy An Nicholas APRN, C.N.P., D.N.P., M.S.N. [address] [place] [phone] (Wo rk) 07/31/2022 Lab Laboratory Medicine Tony Rubalcava M. B., Ch.Maurice, M.Michelle. [address] [place] [address] [phone] (Wo rk) 07/31/2022 Lab Laboratory Medicine Tony Rubalcava M. B., Sydnie, Mukund [address] [place] [address] [phone] (Wo rk) 07/31/2022 Office Visit Transplant Tony Rubalcava M.B., Sydnie, Mukund [address] [place] [address] [phone] (Wo rk) 07/31/2022 Appointment Radiology Tony Rubalcava M.B., Sydnie, Mukund [address] [place] [address] [phone] (Wo rk) 08/01/2022 Office Visit Transplant Tony Rubalcava M.B., Sydnie, Mukund [address] [place] [address] [phone] (Wo rk) 08/01/2022 Clinical Support Transplant Tony Rubalcava M.B., Sydnie, Mukund [address] [place] [address] [phone] (Wo rk) documented as of this encounter Visit Diagnoses Diagnosis Transplant Renal (HCC) documented in this encounter Additional Health Concerns Assessment Noted Time PHQ-9 Depression Total Score: 4 01/30/2019 12:13 PM CD T documented as of this encounter Care Teams Lip And Gate Builder Relationship Specialty Start Date End Date Elsewhere, Pcp PCP - General 09/17/19 documented as of this encounter
--- OUTSIDE RECORDS SUMMARY | 2022-05-25 13:11 | XMS_ITS | Encounter Summary ---
:1960 Author Organization [facility] Address [address] [place] [address] Care Team Providers Name Role Phone Elsewhere, Pcp Primary Care Provider Unavailable Reason for Visit Reason Comments Patient Education Encounter Details Date Type Department Care Team Description 11/17/2020 Clinical Communication Department of Sabrina [facility] Education Infusion Therapy in [place], [address] [place], [place] [address] [place] [phone] [place] [address] Social History Tobacco Use Types Packs/Day Years [...] How often do you attend scientologist or scientologist 1 to 4 times per [...] this encounter Miscellaneous Notes Telephone Encounter - Shayy Lopez R.N. - 11/17/2020 4:08 PM CDT Hi, my name is Shayy Lopez R.N. from [facility] with a recommendation that you receive a monoclonal antibody infusion for the treatment of coronavirus disease 2019 (COVID-19). This medication could be either bamlanivimab and etesevimab combination or a casirivimab and imdevimab combination. This medication has been recommended for you after review of your medical records by a multidisciplinary physician team. While most people do feel better in seven days, some people do develop serious respiratory complications which could lead to hospitalizations or even . You may have been told that there were no treatments at the time of diagnosis, but this is a quickly developing area and this is anew [facility] recommended treatment option for you. In the next few minutes I am going to give you more information about these medications to help you understand the possible risks and benefits of taking amonoclonal antibody infusion It is your choice to receive a monoclonal antibody infusion or stop at any time. ??? Receiving a monoclonal antibody infusion may benefit certain people with COVID-19. ??? This may decrease your risk for hospitalization by 10% to 3% ??? This may decrease the duration of your symptoms by 2 days ( from 8 days to 6 days) ??? You may be feeling well now or not that bad, however, you have been identified as someone who isat risk of developing worse symptoms, and this infusion is designed to prevent that and help you to continue feeling well. What is a monoclonal antibody infusion? These are investigational medicines used for the treatment of COVID-19, it can be used in peoplewho are: o Not in the hospital o Who do not have a new or increased oxygen requirement due to COVID-19 o Who have not tested positive for COVID-19 previously o Age 12 and older o Have mild or moderate symptoms o Weigh equal or more than 88 pounds o AND who are at high risk for developing severe COVID-19 symptoms or being hospitalized. Do you have new or increased oxygen requirement due to COVID 19? No, I do need to let you know that your vital signs will be taken on the arrival for the infusion center. If you are found to be in needof oxygen due to COVID-19 then you will not be infused with MAB rather you will be referred to an urgent care or ED for evaluation of worsening disease. Have you been previously tested and diagnosed with COVID-19? No. I need to let you know that these medications are investigational because it is still being studied.The FDA has approved the use of this medication under an EUA while data is still being collected; but early studies suggest that it reduces the risk of hospitalization. The FDA's Emergency Use Authorization (EUA) has authorized people to receive monoclonal antibody infusions for the treatment of mild COVID-19 . [facility] supports this treatment for certain people. Tell your healthcare provider about all of your medical conditions, including if you: ??? Have any allergies ??? Are or plan to become ??? Are or plan to breastfeed ??? Have any serious illnesses ??? Are taking any medications (prescription, junp-ziv-gdetlfq, vitamins, and herbal products) How will I receive a monoclonal antibody infusion? Monoclonal antibodies are given to you through a vein in your arm over 1-2 hours. You will be observed for 1 hour after the infusion is complete to monitor for side effects You will receive one dose of a monoclonal antibody infusion by IV infusion. What are the important possible side effects of monoclonal antibodies? The most commonly reported side effects in clinical studies have been nausea, diarrhea, dizziness, headache, itching and vomiting. Serious reactions such as allergic reactions or infusion reactions have occurred but are uncommon. Tell your health care provider right away if you have any of the following signs or symptoms of an allergic reaction: fever, chills, nausea, headache, shortness of breath, low blood pressure, wheezing, swelling of your lips face or throat, rash including hives, itching, muscle aches and dizziness. Because monoclonal antibody infusions are still being studied, not a lot of people have been given monoclonal antibody infusions yet, and it is possible that not all of the risks are known at this time. Serious and unexpected side effects may happen. Specific studies have not been conducted to address the possible risks that a monoclonal antibody infusion could interfere with your body's own ability to fight off a future infection of SARS-CoV-2 and/or whether it could reduce your body's immune response to a vaccine for SARS-CoV-2 . Talk to your healthcare provider if you have any questions including whether the risks of serious SARS-CoV-2 infection outweigh the potential risks of monoclonal antibody infusion. Patients who receive a monoclonal antibody infusion are still eligible for a COVID-19 vaccine. Patients who receive monoclonal antibody therapies are advised to delay COVID vaccination for 90 days after receiving the monoclonal therapy. Some patients have expressed concerns about disrupting their vaccine schedule by accepting the monoclonal therapy. We strongly recommend that patients offered monoclonal therapies not decline treatments due to concerns about interfering with vaccination schedules. The vaccine is not an effective treatment for an acute COVID infection but an infusion of monoclonalantibodies is and existing data shows that the risk of re- infection with COVID-19 within 90 days is low. CDC experts agree that the benefits of monoclonal therapies is greater than the risk of delaying vaccination. We wanted you to know that [facility] is encouraging you to treat the illness you have now, this will help you right away and exterminator helper termite while still being eligible for the vaccine. Have you had a COVID-19 vaccine? Yes; if so what date? 09-10-20 first; Thank you for sharing. I am still able to schedule your MAB infusion, but need to make sure you know that your next dose of the COVID-19 vaccine needs to be 90 days after your MAB infusion. I wanted to share with you that if you have completed your COVID 19 vaccine series and then test positive while being symptomatic you are eligible to receive MAB. I am happy to share with you that since june [facility] has infused over [id number] patients witha monoclonal antibody infusion across our [place] sites. I am sharing this because we have not seen any serious side effects in the patients who chose to receive the infusion. The side effects that we are seeing are similar to patients who chose not to receive the medication at all. Patients have reported to us mild fever, diarrhea, chills for a short while, and/or hives. What other treatment choices are there? Like monoclonal antibody infusions, the FDA may allow for the emergency use of other medicines to treat people with COVID-19. Go to https://www.mkmpn94fwxxunbwxrgbvajsnxr.nih.gov/ for information on the emergency use of other medicines that are not approved by FDA to treat people with COVID- 19. Your healthcare provider may talk with you about clinical trials you may be eligible for. It is your choice to be treated or not to be treated with a monoclonal antibody infusion. Should youdecide not to receive a monoclonal antibody infusion or stop it at any time, it will not change yourstandard medical care. Are you or ? No. How do I report side effects with monoclonal antibody infusion? Tell your healthcare provider right away if you have any urgent side effects. For non-urgent side effects or side effects that bothers you or does not go away please the care team coordinating your COVID care during business hours. This may be your primary care provider, your COVID care team or your remote monitoring nurse team, which ever is applicable after emergency care, if needed, has been reached. Report side effects to FDA MedWatch at www.fda.gov/medwatch, call 6-357-EGO-3954. How can I learn more? Ask your healthcare provider ??? Visit https://www.abnua55lfznljrprneodzodksc.nih.gov/ ??? Contact your local or state public health department Would you like to learn more about what an Emergency Use Authorization ( EUA)?Yes; [facility] has made these monoclonal antibody infusions available under an emergency access mechanism called an EUA. The EUA is supported by a [place] of Health and Human Service (HHS) declaration that circumstances exist to justify the emergency use of drugs and biological products during the COVID-19 pandemic. What is the cost for this medication? The medication is provided to [facility] at no charge and there is not cost of the medication to you the patient. Any associated costs with the infusion will be billed to the patient's insurance company. [facility] does not want cost to be a barrier to infusion so please let us know at your infusion if youneed more information or are worried about cost being a barrier. If you are uninsured or underinsured you will still be able to receive this medication free of cost. Please know that there has been a large review by pharmacists, and this medication is not likely to interfere with any normal medication patients may be taking. This is possible as your body processes this medication differently than standard prescription medications. Given how this medication helps your body it is better to receive this medication as soon as possible if you agree to the infusion. I want to let you know that there is no known evidence that one of these medications is better or worse than another in terms of effectiveness or known risk of side effects. Please also know that the medication you will receive will be by chance based on the medication supply, infusion location, and the date of your appointment. Please know that our team is offering and will provide you this treatment for COVID-19 as part of a larger team that is coordinating your overall care. If you have continued questions after your infusion or your symptoms get worse please reach out to the team coordinating your clinical care, either a COVID-19 focused team or your primary care provider's office. If you have a patient portal please look at your messages as there may be one awaiting your review from the clinical team coordinating your care. Do you agree/consent to receive this infusion? Patient needs more time and/or has questions. A RN from the infusion team will call the patient back tomorrow to check on their decision. Thank you for your time, I will connect with the rest of the team to let them know the results of this phone call. SUBJECTIVE CHIEF COMPLAINT / REASON FOR CALL Patient Education Information Discussed Monoclonal antibody: I am on dialysis and I dont think it will work for me, as they are thinking covid is of the same family. PLAN Disposition/Recommendation: monoclonal antibody education Information/Education: patient/caller able to teach back Caller agreeable to plan of care: no call back The following references were used: nursing clinical judgement and other monoclonal education documented in this encounter Plan of Treatment Upcoming Encounters Date Type Specialty Care Team Description 06/01/2022 Telemedicine Pharmacy An Nicholas APRN, C.N.P., Clement., M.S.N. [address] [place] [address] [phone] (Wo rk) 07/31/2022 Lab Laboratory Medicine Tony Rubalcava M. B., Sydnie, Mukund [address] [place] [address] [phone] (Wo rk) 07/31/2022 Lab Laboratory Medicine Tony Rubalcava M. B., Sydnie, Mukund [address] [place] [address] [phone] (Wo rk) 07/31/2022 Office Visit Transplant Tony Rubalcava M.B., Sydnie, Mukund [address] [place] [address] [phone] (Wo rk) 07/31/2022 Appointment Radiology Tony Rubalcava M.B., Sydnie, Mukund [address] [place] [address] [phone] (Wo rk) 08/01/2022 Office Visit Transplant Tony Rubalcava M.B., Sydnie, Mukund [address] [place] [address] [phone] (Wo rk) 08/01/2022 Clinical Support Transplant Tony Rubalcava M.B., Sydnie, Mukund [address] [place] [address] [phone] (Wo rk) documented as of this encounter Visit Diagnoses Not on filedocumented in this encounter Additional Health Concerns Infection Onset Date Last Indicated Resolved Time [id number]: Has been isolated 11/16/2020 11/16/202011/29/2020 2:34 PM CDT for 14 days. She is not symptomatic. Assessment Noted Time PHQ-9 Depression Total Score: 4 01/30/2019 12:13 PM CD T documented as of this encounter Care Teams High Wire Artist Relationship Specialty Start Date End Date Elsewhere, Pcp PCP - General 09/17/19 documented as of this encounter
--- OUTSIDE RECORDS SUMMARY | 2022-05-25 13:11 | XMS_ITS | Encounter Summary ---
:1960 Author Organization [facility] Address [address] [place] [address] Care Team Providers Name Role Phone Elsewhere, Pcp Primary Care Provider Unavailable Reason for Visit Reason Onset Date Comments COVID-19 Remote Patient Monitoring 11/26/2020 Symptom Assessment 11/26/2020 Encounter Details Date Type Department Care Team Description 11/26/2020 Remote Monitoring Remote Patient Andrzej Leahy COVID -19 Remote Monitoring Beatrice, RDaviNDavi Patient Monitoring; [facility] Assessment [address] [facility] (Work) [place] [address] Social History Tobacco Use Types Packs/Day Years [...] How often do you attend restorationism or mormon 1 to 4 times per [...] encounter Progress Notes Andrzej Leahy R.N. - 11/26/2020 5:19 PM CDT Remote Patient Monitoring - RN Symptomology Call Primary reason for today's contact: COVID-19 Symptom Assessment for oxygen 93% Date of positive COVID-19 test result: 11/16/2020 Date COVID-19 symptoms began: 11/15/2020 Symptom Assessment: Home oxygen: No Current Flow Rate: NA Room air SpO2 result: RETEST 95% Today the patient reports the following symptoms: Dyspnea: Not present Cough: Resolved Chest Pain or chest tightness: Not present Fever (>100.4oF or subjective fever): Not present Patient report of date of last fever reducing medication: none Chills: Not present Sweats: Not present Diarrhea: Not present Vomiting: Not present Dizzy or lightheaded: Not present Patient reports the following additional symptoms: none Patient Education: Patient and/or caregiver was instructed on: ?? Continue with testing twice a day - changed testing times to 1100 and 2000 because patient is at dialysis until about 1030 on M/W/ ?? Maintain isolation from others in your home and Keep monitoring symptoms The following references were used: Nursing judgement Plan of Care/Next Steps: Endpoint recommendation: Self-Isolation, quarantine at home and Home Care Patient is currently using supportive care measures of increasing fluid intake and rest. Caller agreeable to plan of care: Yes Patient agrees to continue daily vital sign monitoring and follow up call scheduled. Patient agreed to call Remote Patient Monitoring nurse with any questions or concerns in the interim. documented in this encounter Plan of Treatment Upcoming Encounters Date Type Specialty Care Team Description 06/01/2022 Telemedicine Pharmacy An Nicholas APRN C.N.PDavi, D.N.P., M.S.N. [address] [place] [address] 55 [phone] (Wo rk) 07/31/2022 Lab Laboratory Medicine Tony Rubalcava M. B., Sydnie, MDebra [address] [place] [address] [phone] (Wo rk) 07/31/2022 Lab Laboratory Medicine Tony Rubalcava M. B., Sydnie, MDebra [address] [place] [address] 55 [phone] (Wo rk) 07/31/2022 Office Visit Transplant Tony Rubalcava M.B., ChBurke, MDebra [address] [place] [address] [phone] (Wo rk) 07/31/2022 Appointment Radiology Tony Rubalcava M.B., ChBurke, MDebra [address] [place] [address] 55 [phone] (Nicolas wen) 08/01/2022 Office Visit Transplant Tony Rubalcava M.B., ChBurke, MDebra [address] [place] [address] 55 [phone] (Nicolas wen) 08/01/2022 Clinical Support Transplant Tony Rubalcava M.B.Sydnie M.D. [address] [place], [place] 55 [phone] (Wo rk) documented as of this encounter Visit Diagnoses Not on filedocumented in this encounter Additional Health Concerns Infection Onset Date Last Indicated Resolved Time [id number]: Has been isolated 11/16/2020 11/16/2020 11/29/2020 2:34 PM CDT for 14 days. She is not symptomatic. Assessment Noted Time PHQ-9 Depression Total Score: 4 01/30/2019 12:13 PM CD T documented as of this encounter Care Teams Lens Edger Relationship Specialty Start Date End Date Elsewhere, Pcp PCP - General 09/17/19 documented as of this encounter
--- OUTSIDE RECORDS SUMMARY | 2022-05-25 13:11 | XMS_ITS | Encounter Summary ---
:1960 Author Organization [facility] Address [address] [place] [address] Care Team Providers Name Role Phone Elsewhere, Pcp Primary Care Provider Unavailable Reason for Visit Reason Onset Date Comments COVID-19 Remote Patient Monitoring 11/22/2020 Symptom Assessment 11/22/2020 Encounter Details Date Type Department Care Team Description 11/22/2020 Remote Monitoring Remote Patient Kris, YENIID-19 Remote Monitoring Soraya Mascorro R.N. Patient Monitoring; [facility] Symptom Assessment [address] [facility] (Work) [place] [address] Social History Tobacco Use Types Packs/Day Years [...] How often do you attend quaker or buddhism 1 to 4 times per [...] Nicholas APRN C.N.P., D.N.P., M.S.N. [address] [place] [address] 55 [phone] (Wo rk) 07/31/2022 Lab Laboratory Medicine Tony Rubalcava M. B., Sydnie, MDebra [address] [place] [address] [phone] (Wo rk) 07/31/2022 Lab Laboratory Medicine Tony Rubalcava M. B., ChBurke, MDebra [address] [place] [address] 55 [phone] (Wo rk) 07/31/2022 Office Visit Transplant Tony Rubalcava M.B., Sydnie, MDebra [address] [place] [address] [phone] (Wo rk) 07/31/2022 Appointment Radiology Tony Rubalcava M.B., Ch.BMukund [place] [address] [place] [address] 55 [phone] (Wo rk) 08/01/2022 Office Visit Transplant Tony Rubalcava M.B., Mukund [place] [address] [place] [address] 55 [phone] (Wo rk) 08/01/2022 Clinical Support Transplant Tony Rubalcava M.B., [place]und [place] 200 [place], [place] 55 [phone] (Wo rk) documented as of this encounter Visit Diagnoses Not on filedocumented in this encounter Additional Health Concerns Infection Onset Date Last Indicated Resolved Time [id number]: Has been isolated 11/16/2020 11/16/2020 11/29/2020 2:34 PM CDT for 14 days. She is not symptomatic. Assessment Noted Time PHQ-9 Depression Total Score: 4 01/30/2019 12:13 PM CD T documented as of this encounter Care Teams Synchronous Motor Assembler Relationship Specialty Start Date End Date Elsewhere, Pcp PCP - General 09/17/19 documented as of this encounter
--- OUTSIDE RECORDS SUMMARY | 2022-05-25 13:11 | XMS_ITS | Encounter Summary ---
:1960 Author Organization [facility] Address [address] [place] [address] Care Team Providers Name Role Phone Elsewhere, Pcp Primary Care Provider Unavailable Reason for Visit Reason Comments COVID-19 Remote Patient Monitoring Encounter Details Date Type Department Care Team Description 11/17/2020 Documentation Remote Patient Esmer, Katie Karimi COVID-19 Remote Monitoring [phone] Patient Monitoring [facility] (Work) [address] [place] [address] Social History Tobacco Use Types Packs/Day Years [...] How often do you attend faith or zoroastrian 1 to 4 times per [...] documented as of this encounter Progress Notes Katie Lyman - 11/17/2020 10:32 AM CDT The patient was provided with a remote monitoring kit, which included a tablet, weight scale, blood pressure monitor, pulse oximeter, and thermometer. Where appropriate and as indicated, these devices meet FDA Class II certifications as medical devices: ? ? Blood Pressure Monitor: [employer] Blood Pressure Monitor model QX-[id number] (FDA O009871) or Chung Devika Blood Pressure Monitor model [id number] (FDA L881755) ? ? Weight Scale: MyNeurala Weight Scale model XL-700, Chung [place] Weight Scale model 598392, or [employer] Weight Scale model YS-807OSO-Qk ??? Pulse Oximeter: Nonin Pulse Oximeter model 3230 (FDA B905147) or Nonin Pulse Oximeter model 9560(FDA S084809) ? ? Thermometer: [employer] Medical Thermometer model DT-[address] [facility] Basal Thermometer model 08-365 ??? Continuous Monitor: Everion V1 ([facility] [id number]) documented in this encounter Plan of Treatment Upcoming Encounters Date Type Specialty Care Team Description 06/01/2022 Telemedicine Pharmacy An Nicholas APRN, C.N.P., D.N.P., M.S.N. [address] [place] [address] [phone] (Nicolas rk) 07/31/2022 Lab Laboratory Medicine Tony Rubalcava M. B., Sydnie, Mukund [address] [place] [address] [phone] (Wo rk) 07/31/2022 Lab Laboratory Medicine Tony Rubalcava M. B., Sydnie, Mukund [address] [place] [address] [phone] (Nicolas wen) 07/31/2022 Office Visit Transplant Tony Rubalcava M.B., Sydnie, Mukund [address] [place] [address] 55 [phone] (Nicolas wen) 07/31/2022 Appointment Radiology Tony Rubalcava M.B., Sydnie, Mukund [address] [place] [address] [phone] (Nicolas rk) 08/01/2022 Office Visit Transplant Tony Rubalcava M.B., Sydnie, Mukund [address] [place] [address] [phone] (Nicolas wen) 08/01/2022 Clinical Support Transplant Tony Rubalcava M.B., Sydnie, MDebra [address] [place] [address] [phone] (Nicolas wen) documented as of this encounter Visit Diagnoses Not on filedocumented in this encounter Additional Health Concerns Infection Onset Date Last Indicated Resolved Time [id number]: Has been isolated 11/16/2020 11/16/2020 11/29/2020 2:34 PM CDT for 14 days. She is not symptomatic. Assessment Noted Time PHQ-9 Depression Total Score: 4 01/30/2019 12:13 PM CD T documented as of this encounter Care Teams Strategic Partner Development Manager Relationship Specialty Start Date End Date Elsewhere, Pcp PCP - General 09/17/19 documented as of this encounter
--- OUTSIDE RECORDS SUMMARY | 2022-05-25 13:12 | XMS_ITS | Encounter Summary ---
:1960 Author Organization [facility] Address [address] [place] [address] Care Team Providers Name Role Phone Elsewhere, Pcp Primary Care Provider Unavailable Reason for Referral Outpatient (Routine) - Closed Specialty Diagnoses / Procedures Referred By Contact Refer red To Contact Urology Diagnoses Ureteral Stent Exchange Teresa Antonio M.D. 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 Ureteral Stent Exchange [address] 200 [place] [phone] Social History Tobacco Use Types Packs/Day Years [...] How often do you attend mandaeism or adventist 1 to 4 times per [...] Nicholas APRN, C.N.P., D.N.P., M.S.N. [address] [place] [address] [phone] (Nicolas wen) 07/31/2022 Lab Laboratory Medicine Tony Rubalcava M. B., Sydnie, M.Michelle. [address] [place] [address] [phone] (Nicolas wen) 07/31/2022 Lab Laboratory Medicine Tony Rubalcava M. B., Sydnie, Mukund [address] [place] [address] [phone] (Wo rk) 07/31/2022 Office Visit Transplant Tony Rubalcava M.B., Sydnie, Mukund [address] [place] [address] [phone] (Wo rk) 07/31/2022 Appointment Radiology Tony Rubalcava M.B., Sydnie, Mukund [address] [place] [address] [phone] (Wo rk) 08/01/2022 Office Visit Transplant Tony Rubalcava M.B., Sydnie, Mukund [address] [place] [address] [phone] (Wo rk) 08/01/2022 Clinical Support Transplant Tony Rubalcava M.B., Sydnie, Mukund [address] [place] [address] [phone] (Wo rk) Scheduled Referrals Name Type Priority Associated Diagnoses Order S [facility] Urology office Outpatient Referral Routine Ureteral Stent Expe cted: visit (clinic) Exchange 11/03/2020 (Approximate), Expires: 10/14/2022 documented as of this encounter Results (ABNORMAL) SARS CoV-2 RNA, PCR, Varies Asymptomatic (11/16/2020 2:15 PM CDT) [facility] Method Time Signature SARS CoV-2 Swab, 11/16/2020 DTL RNA, PCR, Nasopharynx 7:07 PM CDT Source SARS CoV-2 Detected (A) Undetected 11/16/2020 DTL RNA, PCR 7:07 PM CDT Comment: SARS-CoV-2 RNA present. ----ADDITIONAL INFORMATION---- This test has received Emergency Use Aut horization (EUA) by the U.S. Food and Drug Administration an d is used per associate field service engineer's instructions. Performance characteristics were verified by [facility] in a manner consistent with CLIA requirements. Visit the CDC website: https://www.cdc.g ov/coronavirus/ for the most recent guidelines on Coron avirus testing. Fact Sheet for Healthcare Providers: https://www.fda.gov/media/177855/downloa d Fact Sheet for Patients: https://www.fda.gov/media/307996/downloa d Specimen Anatomical Collection Method Collection Time Receive d Time (Source) Location / / Volume Laterality Varies 11/16/2020 2:15 PM 3:10 (Nasopharynx) CDT PM CDT Teresa Antonio M.D. LAB MICROBIOLOGY - GENERAL O RDERABLES Performing Organization Address City/State/[facility] Code Phon e Number [facility] - [address] [place], [place] [address] [facility] [place] [address] Laboratories-[facility] [address] documented in this encounter Visit Diagnoses Diagnosis Encounter For Preprocedural Laboratory E xamination (COVID-19) - Primary Ureteral Stent Exchange documented in this encounter Additional Health Concerns Assessment Noted Time PHQ-9 Depression Total Score: 4 01/30/2019 12:13 PM CD T documented as of this encounter Care Teams Furnace Unloader Relationship Specialty Start Date End Date Elsewhere, Pcp PCP - General 09/17/19 documented as of this encounter
--- OUTSIDE RECORDS SUMMARY | 2022-05-25 13:12 | XMS_ITS | Encounter Summary ---
:1960 Author Organization [facility] Address [address] [place] [address] Care Team Providers Name Role Phone Elsewhere, Pcp Primary Care Provider Unavailable Encounter Details Date Type Department Care Team Description 11/08/2020 Orders Only Division of Nephrology and Zaire Candelario A PRN, Hypertension, Religion C.N.P. [place], in [place], [address] [place] [address] [place] [phone] [place] [address] [phone] Social History Tobacco Use Types Packs/Day Years [...] How often do you attend jew or orthodoxy 1 to 4 times per [...] An Nicholas APRN C.N.P., D.N.P., M.S.N. [address] [place] [address] [phone] (Wo rk) 07/31/2022 Lab Laboratory Medicine Tony Rubalcava M. B., Sydnie, MDebra [address] [place] [address] [phone] (Wo rk) 07/31/2022 Lab Laboratory Medicine Tony Rubalcava M. B., ChBurke, MDebra [address] [place] [address] [phone] (Wo behzad) 07/31/2022 Office Visit Transplant Tony Rubalcava M.B., Sydnie, MDebra [address] [place] [address] [phone] (Wo behzad) 07/31/2022 Appointment Radiology Tony Rubalcava M.B., Sydnie, Mukund [address] [place] [address] [phone] (Wo rk) 08/01/2022 Office Visit Transplant Tony Rubalcava M.B., Mukund [place] [address] [place] [address] [phone] (Wo rk) 08/01/2022 Clinical Support Transplant Tony Rubalcava M.B., Mukund [place] [address] [place] [address] [phone] (Wo behzad) documented as of this encounter Visit Diagnoses Not on filedocumented in this encounter Additional Health Concerns Assessment Noted Time PHQ-9 Depression Total Score: 4 01/30/2019 12:13 PM CD T documented as of this encounter Care Teams Varnishing Unit Operator Relationship Specialty Start Date End Date Elsewhere, Pcp PCP - General 09/17/19 documented as of this encounter
--- OUTSIDE RECORDS SUMMARY | 2022-05-25 13:12 | XMS_ITS | Encounter Summary ---
:1960 Author Organization [facility] Address [address] [place] [address] Care Team Providers Name Role Phone Elsewhere, Pcp Primary Care Provider Unavailable Encounter Details Date Type Department Care Team Description 10/14/2020 Hospital Encounter Division of Pain Юлия [facility] [place] [address] [facility] 200 [place] [phone] (Wo rk) Social History Tobacco Use Types [...] How often do you attend pentecostalism or church 1 to 4 times per [...] mouth 2 (two) times a day. warfarin (COUMADIN) 5 Take 5 mg daily 90 tablet 3 0 10/15/2020 mg tablet except Sunday and Sunday, take 2.5 mg documented as of this encounter Plan of Treatment Upcoming Encounters Date Type Specialty Care Team Description 06/01/2022 Telemedicine Pharmacy An Nicholas APRN, C.N.P., D.N.P., M.S.N. [address] [place] [address] [phone] (Wo rk) 07/31/2022 Lab Laboratory Medicine Tony Rubalcava M. B., Ch.B., M.D. [address] [place] [address] [phone] ( rk) 07/31/2022 Lab Laboratory Medicine Tony Rubalcava M. B., Ch.B., M.D. [address] [place] [address] [phone] (Wo rk) 07/31/2022 Office Visit Transplant Tony Rubalcava M.B., Sydnie, Mukund [address] [place] [address] [phone] (Wo rk) 07/31/2022 Appointment Radiology Tony Rubalcava M.B., Sydnie, Mukund [address] [place] [address] [phone] (Wo rk) 08/01/2022 Office Visit Transplant Tony Rubalcava M.B., Sydnie, Mukund [address] [place] [address] [phone] (Wo rk) 08/01/2022 Clinical Support Transplant Tony Rubalcava M.B., Sydnie, Mukund [address] [place] [address] [phone] (Wo rk) Pending Results Name Type Priority Associated Date/Time Diagnoses PM US Intraoperative Procedural Imaging Routine 0 10/14/2020 11:09 AM IC DESIGNER STANDARD CELLS documented as of this encounter Visit Diagnoses Not on filedocumented in this encounter Additional Health Concerns Assessment Noted Time PHQ-9 Depression Total Score: 4 01/30/2019 12:13 PM CD T documented as of this encounter Care Teams Specialized Language Instructor Relationship Specialty Start Date End Date Elsewhere, Pcp PCP - General 09/17/19 documented as of this encounter
--- OUTSIDE RECORDS SUMMARY | 2022-05-25 13:12 | XMS_ITS | Encounter Summary ---
:1960 Author Organization [facility] Address [address] [place] [address] Care Team Providers Name Role Phone Elsewhere, Pcp Primary Care Provider Unavailable Encounter Details Date Type Department Care Team Description 11/04/2020 Hospital Encounter Department of [place], Infectio n Urinary Laboratory Medicine Shanon Henning M.D. [place] [phone] [facility] [phone] [place], [place] (Work) [address] [phone] Social History Tobacco Use Types Packs/Day Years [...] How often do you attend jewish or synagogue 1 to 4 times per [...] 1 tablet (5 mg 90 tablet 3 /08/202007/08/2021 mg tablet total) by mouth every evening. [...] 800 Take 1 tablet (800 90 tablet 03/202001/18/2021 mg tablet mg total) by mouth [...] An Nicholas APRN, C.N.P., D.N.P., M.S.N. [address] [place] [address] [phone] (Wo rk) 07/31/2022 Lab Laboratory Medicine Tony Rubalcava M. B., Ch.B., M.D. [address] [place] [address] [phone] (Wo rk) 07/31/2022 Lab Laboratory Medicine Tony Rubalcava M. B., Ch.B., M.D. [address] [place] [address] [phone] (Wo rk) 07/31/2022 Office Visit Transplant Tony Rubalcava M.B., Sydnie, Mukund [address] [place] [address] [phone] (Wo rk) 07/31/2022 Appointment Radiology Tony Rubalcava M.B., Mukund [place] [address] [place] [address] [phone] (Wo rk) 08/01/2022 Office Visit Transplant Tony Rubalcava M.B., Sydnie, Mukund [address] [place] [address] [phone] (Wo rk) 08/01/2022 Clinical Support Transplant Tony Rubalcava M.B., Sydnie, Mukund [address] [place] [address] [phone] (Wo rk) documented as of this encounter Procedures Procedure Name Priority Date/Time Associated Diagnosis Comme nts BACTERIAL CULTURE, Routine 11/04/2020 10:51 AM Infection Urina ry Results for this AEROBIC + SUSC, CDT Tract procedure ar e in URINE the results section. SUSCEPTIBILITY, Routine 11/04/2020 10:51 AM Resul ts for this AEROBIC, MAYA CDT procedure are i n the results section. SUSCEPTIBILITY, Routine 11/04/2020 10:51 AM Resul ts for this AEROBIC, MAYA CDT procedure are i n the results section. ORGANISM REFER FOR Routine 11/04/2020 10:51 AM Re sults for this ID, AEROBIC BACT CDT procedure a re in the results section. documented in this encounter Results (ABNORMAL) Organism Refer For ID, Aerobic Bact (11/04/2020 10:51 AM CDT) Component Value Ref Test Analysis Performed At [facility] Range Method Time Signature Organism CORYNEBACTERIUM 11/11/2020 DTL Refer for ID, AMYCOLATUM (A) 1:34 PM CDT Aerobic Bact Specimen (Source) Anatomical Collection Method Collection Time Re ceived Time Location / / Volume Laterality Urine, Midstream 11/04/2020 10:51 021 AM CDT 10:50 AM CDT Organism Antibiotic Method Susceptibility Corynebacterium amycolatum Penicillin SUSCEPTIBILITY, MAYA > 8 mcg/mL: Resistant (MCG/ML) Corynebacterium amycolatum Vancomycin SUSCEPTIBILITY, MAYA < =1 mcg/mL: Susceptible (MCG/ML) Corynebacterium amycolatum Ceftriaxone SUSCEPTIBILITY, MAYA > 2 mcg/mL: Resistant (MCG/ML) Corynebacterium amycolatum Meropenem SUSCEPTIBILITY, MAYA > 8 mcg/mL: Resistant (MCG/ML) Shanon Benjamin M.D. LAB MICROBIOLOGY - GENERAL O MADHAV Performing Organization Address City/[facility] Phon e Number [address] Susceptibility, Aerobic, MAYA (11/04/2020 10:51 AM CDT) Component Value Ref Test Analysis Performed At [facility] Method Time Signature Susceptibilit See susceptibility 11/11/2020 DTL y, Aerobic, under organism 1:34 PM CDT MAYA identification. Specimen (Source) Anatomical Collection Method Collection Time Re ceived Time Location / / Volume Laterality Urine, Midstream 11/04/2020 10:51 021 AM CDT 10:50 AM CDT Shanon Benjamin M.D. LAB MICROBIOLOGY - GENERAL O MADHAV Performing Organization Address City/[facility] Phon e Number [address] (ABNORMAL) Susceptibility, Aerobic, MAYA (11/04/2020 10:51 AM CDT) [place] Method Time Signature Susceptibilit AEROCOCCUS 11/10/2020 DTL y, Aerobic, URINAE (A) 12:23 PM CDT MAYA Comment: Organism identified by client. Specimen (Source) Anatomical Collection Method Collection Time Re ceived Time Location / / Volume Laterality Urine, Midstream 11/04/2020 10:51 //2 021 AM CDT 10:48 AM CDT Organism Antibiotic Method Susceptibility Aerococcus urinae Penicillin SUSCEPTIBILITY, MAYA (MCG/ML) < =0.06 mcg/mL: Susceptible Aerococcus urinae Vancomycin SUSCEPTIBILITY, MAYA (MCG/ML) < =1 mcg/mL: Susceptible Aerococcus urinae Ceftriaxone SUSCEPTIBILITY, MAYA (MCG/ML) < =0.5 mcg/mL: Susceptible Shanon Benjamin M.D. LAB MICROBIOLOGY - GENERAL O MADHAV Performing Organization Address City/[facility] Phon e Number [facility] - [address] [place], [place] [address] [facility] [place] [address] Laboratories-[facility] 200 [facility] (ABNORMAL) Bacterial Culture, Aerobic + Susc, Urine (11/04/2020 10:51 AM CDT) Component Value Ref Test Analysis Performed At [facility] Range Method Time Signature Urine Mixed shakir, susceptibilities not 2020 ECLR Culture performed per laboratory criteria. 10:37 AM Additional identification and sensitivities requested by te harrison. CDT (A) Urine AEROCOCCUS URINAE 11/09/2020 ECLR Culture >100,000 cfu/mL 10:37 AM (A) CDT Comment: Referred to [facility] for suscepti bilities. Additional Report Urine Culture DIPHTHEROIDS 11/09/2020 10:37 AM CDT ECLR 1,000-10,000 cfu/mL (A) Comment: Referred to [facility] for identifi cation and susceptibilities. Additional Report Urine Culture LACTOBACILLUS sp 11/09/2020 10:37 AM CDT ECLR 10,000-100,000 cfu/mL (A) Comment: Unable to Isolate for Susceptibilities Additional Report Specimen Anatomical Collection Method Collection Time Receive d Time (Source) Location / / Volume Laterality Urine (Urine, 11/04/2020 10:51 11/04/2020 3:39 Midstream) AM CDT PM CDT Comment: Specimen Source Site: Urine Shanon Benjamin M.D. LAB MICROBIOLOGY - GENERAL Jhonny COREY Performing Organization Address City/[facility] Code Phon e Number [facility]- [address] [place] [phone] [facility] [place] [place] [address] System [address] documented in this encounter Visit Diagnoses Diagnosis Infection Urinary Tract documented in this encounter Additional Health Concerns Assessment Noted Time PHQ-9 Depression Total Score: 4 01/30/2019 12:13 PM CD T documented as of this encounter Care Teams Plaster Lather Relationship Specialty Start Date End Date Elsewhere, Pcp PCP - General 09/17/19 documented as of this encounter
--- OUTSIDE RECORDS SUMMARY | 2022-05-25 13:12 | XMS_ITS | Encounter Summary ---
:1960 Author Organization [facility] Address [address] [place] [address] Care Team Providers Name Role Phone Elsewhere, Pcp Primary Care Provider Unavailable Encounter Details Date Type Department Care Team Description 11/03/2020 Orders Only Alexa Mcdonald T [facility] Renal Center for MANNEQUIN SANDER AND FINISHER, C.N.P., ([facility]) Transplantation and D.N.P. Clinical Regeneration in [address] [place] [address] [place] [phone] [place] [address] [phone] Social History Tobacco Use Types Packs/Day Years [...] How often do you attend yarsani or temple 1 to 4 times per [...] Nicholas APRN, C.N.P., D.N.P., M.S.N. [address] [place] [address] [phone] (Nicolas wen) 07/31/2022 Lab Laboratory Medicine Tony Rubalcava M. B., ChBurke, MElvia. [address] [place] [address] [phone] (Nicolas wen) 07/31/2022 Lab Laboratory Medicine Tony Rubalcava M. B., ChDaviBDavi, MElvia. [address] [place] [address] [phone] (Nicolas wen) 07/31/2022 Office Visit Transplant Tony Rubalcava M.B., ChBurke, MElvia. [address] [place] [address] [phone] (Wo behzad) 07/31/2022 Appointment Radiology Tony Rubalcava M.B., [place] [address] [place] [address] [phone] (Wo rk) 08/01/2022 Office Visit Transplant Tony Rubalcava M.B., [place]und [place] [address] [place] [address] [phone] (Wo rk) 08/01/2022 Clinical Support Transplant Tony Rubalcava M.B., Mukund [place] [address] [place] [address] [phone] (Wo rk) documented as of this encounter Visit Diagnoses Diagnosis Transplant Renal (HCC) documented in this encounter Additional Health Concerns Assessment Noted Time PHQ-9 Depression Total Score: 4 01/30/2019 12:13 PM CD T documented as of this encounter Care Teams Denier Control Operator Relationship Specialty Start Date End Date Elsewhere, Pcp PCP - General 09/17/19 documented as of this encounter
--- OUTSIDE RECORDS SUMMARY | 2022-05-25 13:12 | XMS_ITS | Encounter Summary ---
:1960 Author Organization [facility] Address [address] [place] [id number] Care Team Providers Name Role Phone Elsewhere, Pcp Primary Care Provider Unavailable Reason for Visit Outpatient (Routine) - Closed Specialty Diagnoses / Procedures Referred By Contact Refer red To Contact Urology Diagnoses Ureteral Stent Exchange Teresa Antonio M.D. [facility] [address] [place] [phone] Referral ID Status Reason Start Date Expiration Date Visits Requ ested Visits Authorized [id number] Closed 10/14/2020 10/14/2021 1 1 Encounter Details Date Type Department Care Team Description 11/03/2020 Virtual Visit Department of Urology Geraldo Spear reteral Stent in Catrachita Hernandez M.D. Exchange [address] [place] [phone] Social History Tobacco Use Types Packs/Day Years [...] How often do you attend confucianist or congregation 1 to 4 times per [...] documented as of this encounter Consult Notes Geraldo Spear M.D. - 11/03/2020 10:00 AM CDT This visit was conducted via telephone CHIEF COMPLAINT: Ureteral obstruction; Stent exchange HISTORY OF PRESENT ILLNESS Ms. Wray is a 60 y.o. female from [place], [place]. She is under my care for ureteral stent exchanges. Ms. Wray is a pleasant 58-year-old female for phone visit for consent for ureteral stent exchange. She is to undergo right ureteral stent exchange September 05, 2018. She underwent cadaveric renal transplant in 2007 at the [facility] due to hypertensive nephrosclerosis. 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 She remains on dialysis. She has been doing well since her last visit. She denies any gross hematuria, dysuria, abdominal or flank pain. She states the stent is at the right length and is not bothersome to her. We did discuss the possible use of a Coloplast stent versus a Bard stent in hopes reducing the stentexchanges to one per year. PAST MEDICAL/SURGICAL HISTORY MEDICAL Patient Active Problem List Diagnosis Date Noted ??? Pain Neuropathic 04/05/2020 ??? Infection Urinary Tract Recurrent 09/16/2019 ??? Ureteral Stent Exchange 09/15/2019 ??? Obstruction Ureteropelvic 09/08/2019 ??? Thombosis Arteriovenous Fistula Initial ([facility]) 05/30/2019 ??? Failure Renal End Stage ([facility]) 05/06/2019 ??? Complication Dialysis Device Subsequent 04/25/2019 ??? Anticoagulant Therapy 04/25/2019 ??? Chronic Failure Renal End Stage Renal Disease Dialysis Dependent ([facility]) 04/10/2019 ??? Pretransplant Recipient Evaluation Exam ??? Complication Dialysis Fistula Subsequent 06/26/2018 ??? Obstruction Ureter 04/03/2018 ??? Depression Major One Episode Full Remission ([facility]) 09/13/2017 ??? Chronic Kidney Disease NOS 08/11/2017 ??? Chronic Kidney Disease Stage 5 Glomerular Filtration Rate Less Than 15 ([facility]) 04/18/2017 ??? Chronic Kidney Disease Stage 4 Glomerular Filtration Rate 15-29 ([facility]) 09/27/2016 ??? Complication Kidney Transplant ([facility]) 11/12/2014 ??? Hyperlipidemia 03/27/2012 ??? Transplant Renal ([facility]) 03/27/2012 ??? Hypertension And Chronic Kidney Disease Stage 1 To 4 03/27/2012 Past Medical History: Diagnosis Date ??? Amblyopia Bilateral 1965 ??? Apnea Sleep Obstructive ??? Blood Transfusion No Diagnosis 2007 ??? Depressive Disorder ??? Dialysis Dependent ([facility]) ??? Eczema 1965 ??? Gastroesophageal Reflux Disease NOS ??? Hyperlipidemia 2016 ??? Hypertension NOS ??? Other Specified Health Status 2008 Kidney failure ??? Renal Disease ??? Transplant Renal ([facility]) SURGICAL Past Surgical History: Procedure Laterality Date ??? [...] Right 12/26/2018 Procedure: EXCHANGE URETERAL STENT.; Surgeon: Grealdo Spear M.D.; Location: [facility] OR ??? EXCHANGE URETERAL STENT Right 09/16/2019 Procedure: EXCHANGE URETERAL STENT.; Surgeon: Jakub Ray M.D., Ph.D.; Location: [facility] ??? EXCHANGE URETERAL STENT Right 01/22/2020 Procedure: EXCHANGE URETERAL STENT, allograft kidney.; Surgeon: Beck Galarza M.D.; Location:[facility] OR ??? FISTULOGRAM UPPER EXTREMITY WITH OR [...] PLACEMENT 12/17/2014 balloon dilation and stent placement MEDICATIONS Current Outpatient Medications: ??? acetaminophen (TYLENOL) 500 [...] and dinner. , Disp: , Rfl: ??? chlorhexidine (HIBICLENS) 4 % external solution, Apply 1 application topically as needed (as surgical scrub) for up to 2 doses. Shower using solution the night before and the morning of surgery useto scrub right arm from fingers to shoulder., Disp: 30 mL, Rfl: 0 ??? gabapentin (NEURONTIN) 100 mg capsule, Take 3 capsules (300 mg total) by mouth as directed. 3 johnny 2 in PM, Disp: 450 capsule, Rfl: 3 ??? hydrocortisone (for_HYTONE) 2.5 % cream, Apply 1 application topically daily as needed (Eczema)., Disp: , Rfl: ??? lidocaine-prilocaine (EMLA) 2.5-2.5 % cream, APPLY TOPICALLY TO DIALYSIS ACCESS SITE 30 MINUTES PRIOR TO TREATMENT--GENERIC FOR EMLA, Disp: 60 g, Rfl: 11 ??? multivitamin renal failure (DIALYVITE) 100-1 mg tablet, Take 1 tablet by mouth every evening., Disp: 30 tablet, Rfl: 11 ??? mycophenolate (CELLCEPT) 250 mg capsule, TAKE 1 CAPSULE(250 MG) BY MOUTH TWICE DAILY. DO NOT BREAK, CUT, OR OPEN CAPSULES, Disp: 180 capsule, Rfl: 3 ??? predniSONE (DELTASONE) 5 mg tablet, Take 1 tablet (5 mg total) by mouth daily., Disp: 90 tablet,Rfl: 3 ??? rosuvastatin (CRESTOR) 5 mg tablet, TAKE 1 TABLET BY MOUTH DAILY., Disp: 90 tablet, Rfl: 3 ??? sevelamer (RENVELA) 800 mg tablet, Take 1 tablet (800 mg total) by mouth daily with breakfast. Take with largest meal of the day, Disp: 90 tablet, Rfl: 3 ??? tacrolimus (PROGRAF) 1 mg capsule, Take 3 capsules (3 mg total) by mouth 2 (two) times a day., Disp: 540 capsule, Rfl: 3 ALLERGIES Allergies Allergen Reactions ??? Epoetin Rolando GI intolerance ERYTHROPOIETIN- vomiting ??? Latex Other (see comments) Eczema ??? Pain Medicine Other (see comments) Patient unsure of what medication it was. Had a pain med given intravenously and got very nauseous SOCIAL HISTORY Social History Socioeconomic History ??? Marital status: Spouse name: Not on file ??? Number of children: Not on file ??? Years of education: Not on file ??? Highest education level: GED or equivalent Occupational History ??? Not on file Social Needs ??? Financial resource strain: Not very hard ??? Food insecurity Worry: Never true Inability: Never true ??? Transportation needs Medical: No Non-medical: No Tobacco Use ??? Smoking status: Current Every Day Smoker Packs/day: 0.50 Years: 30.00 Pack years: 15.00 Types: Cigarettes Start date: 01/29/1975 ??? Smokeless tobacco: Never Used Substance and Sexual Activity ??? Alcohol use: No Frequency: Never Drinks per session: Patient refused Binge frequency: Never ??? Drug use: No ??? Sexual activity: Not Currently Partners: Male control/protection: None Lifestyle ??? Physical activity Days per week: 2 days Minutes per session: 10 min ??? Stress: To some extent Relationships ??? Social connections Talks on phone: More than three times a week Gets together: Twice a week Attends congregation service: Never Active member of club or organization: No Attends meetings of clubs or organizations: Never Relationship status: ??? Intimate partner violence Fear of current or ex partner: No Emotionally abused: No Physically abused: No Forced sexual activity: No Other Topics Concern ??? Not on file Social History Narrative ??? Not on file FAMILY HISTORY Family History Problem Relation Age of Onset ??? No Known Problems Mother ??? No Known Problems Father LABS Lab Results Component Value Date NA 138 01/22/2020 CL 95 (L) 09/17/2019 BUN 40 (H) 09/17/2019 HGB 12.5 01/22/2020 HCT 39.0 01/22/2020 WBC 8.8 01/22/2020 Lab Results Component Value Date/Time CREATININE 7.10 (H) 09/17/2019 04:42 AM CREATININE 3.91 (H) 09/15/2019 01:56 PM CREATININE 4.26 (H) 06/05/2019 03:51 AM CREATININE 4.33 (H) 06/03/2019 04:26 AM CREATININE 6.52 (H) 06/01/2019 03:33 AM CREATININE 4.90 (H) 05/31/2019 05:45 AM CREATININE 3.59 (H) 05/30/2019 03:11 PM CREATININE 5.74 (H) 02/11/2019 08:14 PM MICROBIOLOGY/CULTURE DATA Microbiology Results (last 30 days) Procedure Component Value - Date/Time SARS CoV-2 RNA, PCR, Varies Asymptomatic [[id number]] Collected: 10/12/20 1527 Lab Status: Final result Specimen: Varies from Nasopharynx Updated: 02/24/21 0218 SARS CoV-2 RNA, PCR, Source Swab, Nasopharynx SARS CoV-2 RNA, PCR Undetected Comment: SARS-CoV-2 RNA absent. This result does not rule out COVID-19 in the patient, as the sensitivity of the test depends on the timing of the specimen collection and quality of the specimen. Result should be correlated with patient's history and clinical presentation. ----ADDITIONAL INFORMATION---- This test has received Emergency Use Authorization (EUA) by the U.S. Food and Drug Administration and is used per marketing technology specialist's instructions. Performance characteristics were verified by [facility] in a manner consistent with CLIA requirements. Visit the CDC website: https://www.cdc.gov/coronavirus/ for the most recent guidelines on Coronavirus testing. Fact Sheet for Healthcare Providers: https://www.fda.gov/media/809280/download Fact Sheet for Patients: https://www.fda.gov/media/161198/download PATHOLOGY No results found for this or any previous visit (from the past 720 hour(s)). IMAGING AND TESTS No results found. ASSESSMENT/PLAN: #1 Ureteral obstruction of transplant ureter #2 Status post renal transplantUreteral stent exchange PLAN: Ureteral stent exchange on 11/18/2020 I discussed with the patient stent exchange. I reviewed the alternatives, risks, and benefits of this procedure including bleeding, infection, perforation of the ureter, and possibility of a percutaneous nephrostomy tube placement by Radiology. Patient understands and wishes to proceed in the [facility]. We discussed the procedure for [facility]. I have informed the patient that one of our nurses will becalling with the following instructions: (1) Confirm surgical date (2) Fasting after midnight exceptfor sips of water with medication up until two hours prior to the procedure; (3) will have to be accompanied to and from the Procedure Center by a responsible adult; (4) Call in the night before surgery to obtain his report time. Surgical informed consent was not signed and will be signed the morning of surgery. The patient is OKA from previous procedure. I personally spent over 12 minutes in counseling and discussion with the patient and coordination ofcare as described above. Answers for HPI/ROS submitted by the patient [...] An Nicholas APRN CDaviNDaviPDavi, D.N.P., M.S.N. [address] [place] [phone] (Nicolas wen) 07/31/2022 Lab Laboratory Medicine Tony Rubalcava M. B., Sydnie, MDebra [address] [place] [phone] (Nicolas wen) 07/31/2022 Lab Laboratory Medicine Tony Rubalcava M. B., ChBurke, MDebra [address] [place] [phone] (Nicolas wen) 07/31/2022 Office Visit Transplant Tony Rubalcava M.B., ChBurke, MDebra [address] [place] [phone] (Nicolas wen) 07/31/2022 Appointment Radiology Tony Rubalcava M.B., ChBurke, MDebra [address] [place] [phone] (Nicolas wen) 08/01/2022 Office Visit Transplant Tony Rubalcava M.B., Sydnie, MDebra [address] [place] [phone] (Nicolas wen) 08/01/2022 Clinical Support Transplant Tony Rubalcava M.B., BDavi, M.D. [address] [place], [place] [phone] (Wo rk) documented as of this encounter Visit Diagnoses Diagnosis Ureteral Stent Exchange documented in this encounter Additional Health Concerns Assessment Noted Time PHQ-9 Depression Total Score: 4 01/30/2019 12:13 PM CD T documented as of this encounter Care Teams Restrike Hammer Operator Relationship Specialty Start Date End Date Elsewhere, Pcp PCP - General 09/17/19 documented as of this encounter
--- OUTSIDE RECORDS SUMMARY | 2022-05-25 13:12 | XMS_ITS | Encounter Summary ---
:1960 Author Organization [facility] Address 200 [place] [address] Care Team Providers Name Role Phone Elsewhere, Pcp Primary Care Provider Unavailable Encounter Details Date Type Department Care Team Description 10/25/2020 Clinical Division of Breast, [place], Communication Endocrine, Metabolic, Shanon Henning M.D. and Gastrointestinal 200 [facility] Surgery in [facility] [phone] 200 [facility] [phone] [place] [address] (Work) [phone] Social History Tobacco Use Types Packs/Day Years [...] 12/23/2021 relatives? How often do you attend buddhist or orthodoxy 1 to 4 times per year 12/23/2021 services? Do you belong to any clubs or organizations such No 12/23/2021 as buddhist groups, unions, fraternal or athletic groups, or [...] this encounter Miscellaneous Notes Telephone Encounter - Ranjana Bui - 10/26/2020 5:00 PM CST Faxed to [facility] ASSEMBLER Telephone Encounter - Shanon Benjamin M.D. - 10/26/2020 4:35 PM COIL ASSEMBLER Signed, thanks! ASSEMBLER Telephone Encounter - Shanon Benjamin M.D. - 10/26/2020 2:49 PM COIL ASSEMBLER Can we get another culture mike? ASSEMBLER Telephone Encounter - Shanon Benjamin M.D. - 10/26/2020 1:09 PM COIL ASSEMBLER Will need susceptibilities, definitely needs to be treated before procedure given her immunocompromised state. I was unable to see them, can have them sent over? ASSEMBLER Telephone Encounter - Hanh House R.N. - 10/26/2020 12:17 PM CST OPC nurses leave that up to the primary urologist team.. It looks like Beatris might be primary? If he wants to treat we can call/prescribe medication ASSEMBLER documented in this encounter Plan of Treatment Upcoming Encounters Date Type Specialty Care Team Description 06/01/2022 Telemedicine Pharmacy An Nicholas APRN, C.N.P., D.N.P., M.S.N. [address] [place] [phone] (Wo rk) 07/31/2022 Lab Laboratory Medicine Tony Rubalcava M. B., Sydnie, MDebra [address] [place] [phone] (Wo rk) 07/31/2022 Lab Laboratory Medicine Tony Rubalcava M. B., Sydnie, MDebra [address] [place] [phone] (Wo rk) 07/31/2022 Office Visit Transplant Tony Rubalcava M.B., Sydnie, MDebra [address] [place] [phone] (Wo rk) 07/31/2022 Appointment Radiology Tony Rubalcava M.B., Sydnie, MDebra [address] [place] [phone] (Wo rk) 08/01/2022 Office Visit Transplant Tony Rubalcava M.B., Sydnie, MDbera [address] [place] [phone] (Wo rk) 08/01/2022 Clinical Support Transplant Tony Rubalcava M.B., Sydnie, Shashi. [address] [place], [place] [phone] (Wo rk) documented as of this encounter Visit Diagnoses Not on filedocumented in this encounter Additional Health Concerns Assessment Noted Time PHQ-9 Depression Total Score: 4 01/30/2019 12:13 PM CD T documented as of this encounter Care Teams Laboratory Mechanic Helper Relationship Specialty Start Date End Date Elsewhere, Pcp PCP - General 09/17/19 documented as of this encounter
--- OUTSIDE RECORDS SUMMARY | 2022-05-25 13:12 | XMS_ITS | Encounter Summary ---
:1960 Author Organization [facility] Address [address] [place] [address] Care Team Providers Name Role Phone Elsewhere, Pcp Primary Care Provider Unavailable Reason for Visit Reason Comments OPC Procedure Testing 11/18 Encounter Details Date Type Department Care Team Description 11/08/2020 Clinical Communication [facility] Spear, OPC Procedure [address] [facility] Geraldo Domínguez M.D. (Testing 11/18) [place], [place] [address] [place] [phone] [place] [address] Social History Tobacco Use Types Packs/Day Years [...] this encounter Miscellaneous Notes Telephone Encounter - Hanh House RDaviN. - 11/08/2020 10:38 AM CDT Listing updated: Date of Surgery:11/18/2020 SIDNEY:10/14 ANE Urine:11/04 Mixed shakir, AEROCOCCUS URINAE >100,000 cfu/mL, DIPHTHEROIDS 1,000- 10,000 cfu/mL message sent to [place] Listing Visit:11/18 Covid Test: 11/16 Telephone Encounter - Stephanie Mathis - 11/08/2020 8:59 AM CDT Date of Surgery:11/18/2020 SIDNEY:10/14 ANE Urine:11/04 Listing Visit:11/18 Covid Test: 11/16 documented in this encounter Plan of Treatment Upcoming Encounters Date Type Specialty Care Team Description 06/01/2022 Telemedicine Pharmacy An Nicholas APRN, C.N.P., D.N.P., M.S.N. [address] [place] [phone] (Wo rk) 07/31/2022 Lab Laboratory Medicine Tony Rubalcava M. B., Sydnie, Mukund [address] [place] [phone] (Wo rk) 07/31/2022 Lab Laboratory Medicine Tony Rubalcava M. B., Sydnie, Mukund [address] [place] [phone] (Wo rk) 07/31/2022 Office Visit Transplant Tony Rubalcava M.B., Sydnie, Mukund [address] [place] [phone] (Wo rk) 07/31/2022 Appointment Radiology Tony Rubalcava M.B., Sydnie, Mukund [address] [place] [address] [phone] (Wo rk) 08/01/2022 Office Visit Transplant Tony Rubalcava M.B., Sydnie, Mukund [address] [place] [address] [phone] (Wo rk) 08/01/2022 Clinical Support Transplant Tony Rubalcava M.B., Sydnie, Mukund [address] [place] [phone] (Wo rk) documented as of this encounter Visit Diagnoses Not on filedocumented in this encounter Additional Health Concerns Infection Onset Date Last Indicated Resolved Time COVID19 Pending 11/16/2020 11/16/2020 11/16/2020 7:07 PM CDT [id number]: Has been isolated 11/16/2020 11/16/2020 11/29/2020 2:34 PM CDT for 14 days. She is not symptomatic. Assessment Noted Time PHQ-9 Depression Total Score: 4 01/30/2019 12:13 PM CD T documented as of this encounter Care Teams Prosthetic Dentist Relationship Specialty Start Date End Date Elsewhere, Pcp PCP - General 09/17/19 documented as of this encounter
--- OUTSIDE RECORDS SUMMARY | 2022-05-25 13:12 | XMS_ITS | Encounter Summary ---
:1960 Author Organization [facility] Address [address] [place] [address] Care Team Providers Name Role Phone Elsewhere, Pcp Primary Care Provider Unavailable Encounter Details Date Type Department Care Team Description 10/14/2020 Anesthesia Event Outpatient Procedure Kaykay Beltran A PRN, CRNA [facility] [place] [address] [place] [address] [place] [address] [place] [address] Anesthesia Record Procedure Summary Procedure Name Responsible Anesthesia Start Anesthesia Stop Anesthesiologist Time Time Sprint INSERTION Kaykay Beltran APRN, FLORENCIO 10/14/20 1000 10/14 1101 NEUROSTIMULATOR ELECTRODE PERIPHERAL. (Right: Arm Upper) Events Date Time Event Comment 10/14/2020 1000 An Start Machine/Equipmen t Checked Infection Precautions Foll owed Procedure/Site Verified NPO Sta tus Verified Supine Standard ASA Mon itors Applied 1009 Turnover to Proceduralist 1034 Proc Start 1055 Proc Fin 1057 Turnover to ANE Staff 1058 an stop data 1101 An End I completed my h andoff to the receiving staff during [facility] we 1. Identified the patient 2. Ident ified the responsible provider 3. Revi ewed the pertinent medical history 4. Discu ssed the surgical course 5. Reviewed intra-o p anesthesia management and issues during an esthesia 6. Set expectations for post-procedure period 7. Allowed opportun ity for questions and acknowledgement of understanding. Name Total fentanyl injection 50 mcg/mL 50 mcg propofol 10 mg/mL injection 20 mg ondansetron PF 4 mg/2 mL injection 4 mg ceFAZolin injection 2,000 mg (ANCEF) 2 g NaCl 0.9% infusion 100 mL Agents No agents on file. Blood No blood administrations on file. Lines, Drains, and Airways Type Details Placement Removal Hemodialysis AV Access Placement Date: 05/06/19 0000 by 05/06/19 (present Xin Proctor, upon arrival to pacu) R.N. Ureteral Drain/Stent 09/16/19; 1700; 09/16/19 1700 by Right; Other Soraya Garcia, (Comment) (Internal) R.N. Hemodialysis AV Access Placement Date: 05/06/19 0000 by 04/07/22 0000 by 05/06/19; Removal Harini Lim Sackett, C olin J, Date: 04/07/22 R.N. R.N. (duplicate LDA) Peripheral IV Placement Date: 10/14/20 0911 by 10/14/20 1149 b y 10/14/20; Placement Vida Hernandez Oelkers, Ke lli, Time: 910; Catheter R.N. M.S.N., R.N . Size: 20 G; Orientation: Anterior, Distal, Left, Lower; Location: Wrist; Site Prep: Alcohol; Technique: Transillumination; Insertion Attempts: 1; Removal Date: 10/14/20; Removal Time: 1149; Removal Reason: Patient discharged (RETIRED) Incision 10/14/20; 1029; Arm; 10/14/20 1029 by 1 1418 by rachid leo; Norma Mello [facility] inic-Backgroun 05/10/21 (Removed by Camron Belle Scheduli ng background completion Automated Batch Job utility); 1418 (Removed by background completion utility) documented in this encounter Social History Tobacco [...] How often do you attend methodist or caodaism 1 to 4 times per [...] encounter OR Notes Anesthesia Postprocedure Evaluation - Kaykay Beltran APRN, CRNA - 10/14/2020 11:01 AM CST Patient: Shabnam Wray Procedure Summary Date: 10/14/20 Room / Location: [place] [address] / [facility] in [place], [place] Anesthesia Start: 1000 Anesthesia Stop: 1101 Procedure: Sprint INSERTION NEUROSTIMULATOR ELECTRODE PERIPHERAL. (Right Arm Upper) Diagnosis: (right ulner intractable pain.) Surgeons: Юлия Painter M.D. Responsible Provider: Kaykay Beltran APRN, CRNA Anesthesia Type: MAC ASA Status: 4 Anesthesia Type: MAC Last vitals Vitals Value Taken Time BP 203/101 10/14/20 1100 Temp Pulse 62 10/14/20 1101 Resp 16 10/14/20 1101 SpO2 95 % 10/14/20 1101 Vitals shown include unvalidated device data. Please reference Vitals flowsheet for most recent vital signs. Anesthesia Post Evaluation Patient Disposition: dismissal Cardiovascular status: hemodynamics (HR & BP) acceptable Respiratory status: patent airway with spontaneous effort Temperature: normothermic Oxygen requirements: room air Level of consciousness: awake Pain score: pain adequately controlled and/or at baseline Post Op nausea/vomiting: none Hydration status: euvolemic DRAFTER Anesthesia Preprocedure Evaluation - Bill Conrad M.D. - 10/14/2020 8:12 AM CST Preprocedure Anesthesia & H&P Assessment Procedure Summary Date/Time: 10/14/20914 Procedure: Sprint INSERTION NEUROSTIMULATOR ELECTRODE PERIPHERAL. (N/A ) Pre-op diagnosis: right ulner intractable pain. Location: [place] [address] / [facility] in [place], [place] Surgeons: Юлия Painter M.D. Pertinent components of the patient's history [...] Hyperlipidemia HEME (+) Anticoagulant Therapy Other (+) Complication Kidney Transplant (HCC) (+) Transplant Renal (HCC) OBJECTIVE PHYSICAL EXAMINATION Airway (HEENT) Mallampati: II Cardiovascular Rhythm: Regular Functional Capacity: >4 METS Pulmonary Pulmonary Assessment: Clear General / Constitutional Constitutional Assessment: Normal ASSESSMENT / PLAN ANESTHESIA PLAN ASA: 4 Anesthesia Plan: MAC Patient seen and allergies reviewed, anesthesia plan and risks discussed directly with patient /legal guardian or through an translator interpreter. Risks/Benefits/Alternatives of Blood transfusion discussed with patient / legal guardian, including an opportunity to ask questions and/or decline some or all transfusion therapies. The patient / legalguardian consented to the use of all blood products, as deemed medically necessary Approval to Proceed: approved for anesthesia DRAFTER documented in this encounter Plan of Treatment Upcoming Encounters Date Type Specialty Care Team Description 06/01/2022 Telemedicine Pharmacy An Nicholas APRN, C.NDaviPDavi, D.N.P., M.S.N. [address] [place] [phone] (Nicolas rk) 07/31/2022 Lab Laboratory Medicine Tony Rubalcava M. B., ChBurke, MElvia. [address] [place] [phone] (Nicolas wen) 07/31/2022 Lab Laboratory Medicine Tony Rubalcava M. B., ChBurke, MElvia. [address] [place] [phone] (Wo rk) 07/31/2022 Office Visit Transplant Tony Rubalcava M.B., ChDaviBDavi, MDebra [address] [place] [phone] (Wo behzad) 07/31/2022 Appointment Radiology Tony Rubalcava M.B., ChDaviBDavi, MElvia. [address] [place] [phone] (Wo behzad) 08/01/2022 Office Visit Transplant Tony Rubalcava M.B., Mukund Otoole [address] [place], [place] [phone] (Wo rk) 08/01/2022 Clinical Support Transplant Tony Rubalcava M.B., Mukund Otoole [address] [place], [place] [phone] (Wo rk) documented as of this encounter Visit Diagnoses Not on filedocumented in this encounter Administered Medications Inactive Administered Medications - up to 3 most recent administrations Medication Order MAR Action Action Date Dose Rate Site ceFAZolin injection 2,000 mg Given 10/14/2020 10:10 AM CAD DRAFTER 2 g (ANCEF) 2,000 mg (rounded from 2,425 mg = 25 mg/kg ? 97 kg), intravenous, Once, On Elizabeth 10/14/20 at 0830, For 1 dose, Intra-Op, Preoperatively within 1 hour prior to surgical incision If needed, reconstitute vial per package insert instructions. See IVAG for administration guidelines. , , Drug Monitoring Program: Pharmacist to adjust medication dosing based on indication and drug clearance factors., Indications: Prophylaxis, surgical fentaNYL injection (SUBLIMAZE) Given 10/14/2020 10:09 AM CAD DRAFTER 50 mcg intravenous, As needed, Starting on Elizabeth 10/14/20 at 1009, Anesthesia Intra-op NaCl 0.9% infusion New Bag 10/14/2020 10:00 AM CAD DRAFTER 20 mL/hr, intravenous, Continuous, Starting on Elizabeth 10/14/20 at 0930 ondansetron (PF) injection (ZOFRAN) Given 10/14/2020 10:35 AM CAD DRAFTER 4 mg intravenous, As needed, Starting on Elizabeth 10/14/20 at 1035, Anesthesia Intra-op propofoL injection (DIPRIVAN) Given 10/14/2020 10:33 AM CAD DRAFTER 20 mg intravenous, As needed, Starting on Elizabeth 10/14/20 at 1033, Anesthesia Intra-op documented in this encounter Additional Health Concerns Assessment Noted Time PHQ-9 Depression Total Score: 4 01/30/2019 12:13 PM CD T documented as of this encounter Care Teams Transportation Refrigeration Technician Relationship Specialty Start Date End Date Elsewhere, Pcp PCP - General 09/17/19 documented as of this encounter
--- OUTSIDE RECORDS SUMMARY | 2022-05-25 13:12 | XMS_ITS | Encounter Summary ---
:1960 Author Organization [facility] Address [address] [place] [address] Care Team Providers Name Role Phone Elsewhere, Pcp Primary Care Provider Unavailable Reason for Visit Reason Comments OPC Procedure Testing- 11/04 Encounter Details Date Type Department Care Team Description 10/27/2020 Clinical Communication RST PETRONA Spear, OPC Procedure [address] [facility] Geraldo Domínguez M.D. (Testing- 11/04) [place], [place] [address] [facility] [address] [place] [address] Social History Tobacco Use Types Packs/Day Years [...] How often do you attend gnosticism or latter day 1 to 4 times [...] Telephone Encounter - Nicole Fuentes R.N. - 11/01/2020 2:56 PM CDT Noted. Telephone Encounter - Nicole Fuentes R.N. - 11/01/2020 1:48 PM CDT I called the lab... they do not have the culture anymore. They also stated: will not run a sensitivity on a mixed gram positive shakir nor the prior diptheroids... as they stated it's likely a contaminate She stated that yes they do sometimes send the specimens to have sensitivities to be run but the order needs to be more specific on if it shows ___ then run sensitivities. Pat calling to have patient obtain sample here and move surgery. Telephone Encounter - Nicole Fuentes R.N. - 11/01/2020 10:33 AM CDT UC now showing: >100,000 mixed gram positive shakir... doesn't look like they did sensitivities again on this... Telephone Encounter - Aparna Avendano - 11/01/2020 10:26 AM CDT Urine culture results received from [facility], this has been scanned in and is available via document viewer. Thanks! Telephone Encounter - Nicole Fuentes R.N. - 11/01/2020 8:52 AM CDT Can you follow up and see if the repeat urines are done and get the results sent here. I see nothingin doc viewer or care everywhere. Procedure is on 11/04. Thanks Telephone Encounter - Anne Wynne R.N. - 10/28/2020 9:26 AM CST Pt not doing until today. Results likely over the weekend. Will postpone message until Sunday. AL SURGEON Telephone Encounter - Radha Ramirez - 10/27/2020 8:22 AM CST Karin: Dr. Benjamin got back to me yesterday about this and wants new urines with sensitivities. I let the patient know and we will fax the order over to [facility] -- in [place]; hopefully today. She can't do it until tomorrow morning. AL SURGEON Telephone Encounter - Riana Nicholas - 10/27/2020 8:13 AM CST Date of Surgery: 11/04/20 SIDNEY: 10/14 Urine: 10/21 Document viewer Listing Visit: 11/03 Covid: 11/02 AL SURGEON documented in this encounter Plan of Treatment Upcoming Encounters Date Type Specialty Care Team Description 06/01/2022 Telemedicine Pharmacy An Nicholas APRN, C.NDaviPDavi, Michelle.N.P., M.S.N. [address] [place] [phone] (Wo rk) 07/31/2022 Lab Laboratory Medicine Tony Rubalcava M. B., ChBurke, MDebra [address] [place] [phone] (Nicolas wen) 07/31/2022 Lab Laboratory Medicine Tony Rubalcava M. B., ChBurke, Mukund [address] [place] [phone] (Nicolas wen) 07/31/2022 Office Visit Transplant Tony Rubalcava M.B., ChBurke, MDebra [address] [place] [phone] (Nicolas wen) 07/31/2022 Appointment Radiology Tony Rubalcava M.B., ChBurke, MDebra [address] [place] [phone] (Nicolas wen) 08/01/2022 Office Visit Transplant Tony Rubalcava M.B., ChBurke, MDebra [address] [place] [phone] (Nicolas wen) 08/01/2022 Clinical Support Transplant Tony Rubalcava M.B., Sydnie, MElvia. [address] [place] [phone] (Nicolas wen) documented as of this encounter Visit Diagnoses Not on filedocumented in this encounter Additional Health Concerns Assessment Noted Time PHQ-9 Depression Total Score: 4 01/30/2019 12:13 PM CD T documented as of this encounter Care Teams Meat Selector Relationship Specialty Start Date End Date Elsewhere, Pcp PCP - General 09/17/19 documented as of this encounter
--- OUTSIDE RECORDS SUMMARY | 2022-05-25 13:12 | XMS_ITS | Encounter Summary ---
:1960 Author Organization [facility] Address [address] [place] [address] Care Team Providers Name Role Phone Elsewhere, Pcp Primary Care Provider Unavailable Encounter Details Date Type Department Care Team Description 11/01/2020 Orders Only Department of Urology Geraldo Spear In fection Urinary Tract in Catrachita Hernandez M.D. (Primary Dx) [place] [address] [place] [address] 200 [place] [address] [phone] Social History Tobacco Use Types Packs/Day Years [...] How often do you attend buddhist or voodoo 1 to 4 times per year 12/23/2021 [...] An Nicholas APRN C.N.P., D.N.P., M.S.N. [address] [place] [phone] (Wo rk) 07/31/2022 Lab Laboratory Medicine Tony Rubalcava M. B., ChBurke, MDebar [address] [place] [phone] (Wo rk) 07/31/2022 Lab Laboratory Medicine Tony Rubalcava M. B., ChBurke, MDebra [address] [place] [address] [phone] (Wo rk) 07/31/2022 Office Visit Transplant Tony Rubalcava M.B., ChBurke, MDebra [address] [place] [phone] (Wo rk) 07/31/2022 Appointment Radiology Tony Rubalcava M.B., Mukund Otoole [address] [place], [place] [phone] (Wo rk) 08/01/2022 Office Visit Transplant Tony Rubalcava M.B., Mukund Otoole 200 [place], [place] [phone] (Wo rk) 08/01/2022 Clinical Support Transplant Tony Rubalcava M.B., Mukund Otoole 200 [place], [place] [phone] (Wo rk) documented as of this encounter Results (ABNORMAL) Bacterial Culture, Aerobic + Susc, Urine (11/04/2020 10:51 AM CDT) Component Value Ref Test Analysis Performed At [facility] gist Range Method Time Signature Urine Mixed shakir, susceptibilities not 2020 ECLR Culture performed per laboratory criteria. 10:37 AM Additional identification and sensitivities requested by te ne. CDT (A) Urine AEROCOCCUS URINAE 11/09/2020 ECLR Culture >100,000 cfu/mL 10:37 AM (A) CDT Comment: Referred to [facility] for suscepti bilities. Additional Report Urine Culture DIPHTHEROIDS 11/09/2020 10:37 AM CDT ECLR 1,000-10,000 cfu/mL (A) Comment: Referred to [facility] for identifi cation and susceptibilities. Additional [...] Benjamin M.D. LAB MICROBIOLOGY - GENERAL O RDERABLES Performing Organization Address City/State/ZIP Code Phon e Number [facility]- [address] [place] [phone] [facility] [place] [address] System in [address] documented in this encounter Visit Diagnoses Diagnosis Infection Urinary Tract - Primary documented in this encounter Additional Health Concerns Assessment Noted Time PHQ-9 Depression Total Score: 4 01/30/2019 12:13 PM CD T documented as of this encounter Care Teams Digital Communications Manager Relationship Specialty Start Date End Date Elsewhere, Pcp PCP - General 09/17/19 documented as of this encounter
--- OUTSIDE RECORDS SUMMARY | 2022-05-25 13:12 | XMS_ITS | Encounter Summary ---
:1960 Author Organization [facility] Address [address] [place] [address] Care Team Providers Name Role Phone Elsewhere, Pcp Primary Care Provider Unavailable Encounter Details Date Type Department Care Team Description 11/15/2020 Documentation Division of Nephrology and Josr Martínez Hypertension in [place], ., D.O. [place] 200 [facility] 200 [place] [address] [phone] (Wo rk) Social History Tobacco Use Types [...] How often do you attend jainism or bahai 1 to 4 times per [...] Progress Notes Steve Martínez Jr., D.O. - 11/15/2020 8:49 AM CDT Care coordination note: She was seen on dialysis today. She is looking forward to her stent exchanges week. The new neurostimulator in her right arm seems to be avoiding the tremendous nerve pain she has had in the past. Additionally, she had a left-sided arm melanoma removed. We have been struggling a bit with her blood pressure, she is to be checking her blood pressures at home, as our blood pressures on dialysis are Done on her leg. Finally, we are looking forward to her stent exchange this coming week. There has been some concern regards possible urinary tract infection. Appreciate that she had a contaminated specimen delivered at [place], she has no symptoms of dysuria urgency nor changes in urine character or quantity, I believe it is safe for her to proceed with stent exchange. Jackeline procedural antibiotics could be givenby our Urology team if felt necessary. documented in this encounter Plan of Treatment Upcoming Encounters Date Type Specialty Care Team Description 06/01/2022 Telemedicine Pharmacy An Nicholas APRN, C.N.P., D.N.P., M.S.N. [address] [place] [phone] (Wo rk) 07/31/2022 Lab Laboratory Medicine Tony Rubalcava M. B., Sydnie, MDebra [address] [place] [address] [phone] (Wo rk) 07/31/2022 Lab Laboratory Medicine Tony Rubalcava M. B., ChBurke, MDebra [address] [place] [address] [phone] (Wo rk) 07/31/2022 Office Visit Transplant Tony Rubalcava M.B., Sydnie, MDebra [address] [place] [address] [phone] (Wo rk) 07/31/2022 Appointment Radiology Tony Rubalcava M.B., Sydnie, MDebra [address] [place] [address] [phone] (Wo rk) 08/01/2022 Office Visit Transplant Tony Rubalcava M.B., ChBurke, MDaviD. [address] [place] [address] [phone] (Wo rk) 08/01/2022 Clinical Support Transplant Tony Rubalcava M.B., Sydnie, M.D. [address] [place] [address] [phone] (Wo rk) documented as of this encounter Visit Diagnoses Not on filedocumented in this encounter Additional Health Concerns Assessment Noted Time PHQ-9 Depression Total Score: 4 01/30/2019 12:13 PM CD T documented as of this encounter Care Teams Car Hop Relationship Specialty Start Date End Date Elsewhere, Pcp PCP - General 09/17/19 documented as of this encounter
--- OUTSIDE RECORDS SUMMARY | 2022-05-25 13:12 | XMS_ITS | Encounter Summary ---
:1960 Author Organization [facility] Address [address] [place] [address] Care Team Providers Name Role Phone Elsewhere, Pcp Primary Care Provider Unavailable Reason for Visit Outpatient (Routine) - Closed Specialty Diagnoses / Procedures Referred By Contact Refer red To Contact Diagnoses Other Chronic Pain Юлия Painter M.D. [facility] Procedures PM Stimulator Reprogramming [address] [place] [phone] Referral ID Status Reason Start Date Expiration Date Visits Requ ested Visits Authorized [id number] Closed 08/06/2020 08/06/2021 1 1 Encounter Details Date Type Department Care Team Description 10/15/2020 Procedure visit Division of Pain Eun Painter M.D. [address] [place] [phone] [facility] [place] [address] [place] [phone] Social History Tobacco Use Types Packs/Day Years [...] Sign Reading Time Taken Comments Blood Pressure 185/97 10/15/2020 11:11 AM MEDIATOR Pulse 66 10/15/2020 11:11 AM MEDIATOR Temperature 36.8 ??C (98.2 ??F) 10/15/2020 11:11 AM MEDIATOR Respiratory Rate - - Oxygen Saturation - - Inhaled Oxygen Concentration - - Weight - - Height - - Body Mass Index - - documented in this encounter Progress Notes Kayleigh Villegas RDaviN. - 10/15/2020 11:30 AM CST I met with DaviNils and Sheela Pantoja, the SPR rep, for post-op education following ther SPR device implant on 10/14/20. has procedural pain of 2-3/10 and her chronic pain is 1/10. The remote was set to 45 upon arrival today. The remote was set to 38 upon departure. A complete dressing change was completed. Ms. Wray states that her nurse will be assisting her with dressing changes at home. Peripheral Stimulation [employer]plant[employer]?? Bathing ??? Do not shower for 72 hours following the implant ??? Do not submerge any of the internal or external PNS components in water during any time of the treatment period (i.e., no taking baths, no swimming in pools or lakes) Care of lead site: ??? Change the clear dressing over the lead insertion site every 2-3 days or sooner if the dressing starts to curl at the edges or loosens. Change the anchor bandage every 7 days or sooner if the edgesstart to loosen. Follow up: As scheduled with the Pain Medicine Outpatient Clinic Resuming medications: If you were asked to stop medication prior to your surgery, ask your care team when it is ok to resume this medication. When to contact your health care provider: Call a member of your pain medicine team if you get any of the following: ??? A temperature of 100.4 degrees Fahrenheit (38 degrees Celsius) or greater ??? Drainage that is yellow, green, has pus or is foul smelling, redness or warmth at the lead site(s) ??? Swelling around the lead site(s) ??? Bleeding from the lead site(s) ??? Increased pain or tenderness at the lead site(s) ??? You experience a loss of stimulation or have issues with the device ATOR documented in this encounter Plan of Treatment Upcoming Encounters Date Type Specialty Care Team Description 06/01/2022 Telemedicine Pharmacy An Nicholas APRN, C.N.P., D.N.P., M.S.N. 200 [place], [place] [phone] (Wo rk) 07/31/2022 Lab Laboratory Medicine Tony Rubalcava M. B., YvonneMukund Turk [address] [place] [address] [phone] (Wo rk) 07/31/2022 Lab Laboratory Medicine Tony Rubalcava M. B., Sydnie, Mukund [address] [place] [address] [phone] (Wo rk) 07/31/2022 Office Visit Transplant Tony Rubalcava M.B., Sydnie, Mukund [address] [place] [address] [phone] (Wo rk) 07/31/2022 Appointment Radiology Tony Rubalcava M.B., Sydnie, Mukund [address] [place] [address] [phone] (Wo rk) 08/01/2022 Office Visit Transplant Tony Rubalcava M.B., Sydnie, MDebra [address] [place] [address] [phone] (Wo rk) 08/01/2022 Clinical Support Transplant Tony Rubalcava M.B., Sydnie, MDebra [address] [place] [address] [phone] (Wo rk) documented as of this encounter Visit Diagnoses Diagnosis Other Chronic Pain documented in this encounter Additional Health Concerns Assessment Noted Time PHQ-9 Depression Total Score: 4 01/30/2019 12:13 PM CD T documented as of this encounter Care Teams Grades 7 And 8 Teacher Relationship Specialty Start Date End Date Elsewhere, Pcp PCP - General 09/17/19 documented as of this encounter
--- OUTSIDE RECORDS SUMMARY | 2022-05-25 13:12 | XMS_ITS | Encounter Summary ---
:1960 Author Organization [facility] Address [address] [place] [address] Care Team Providers Name Role Phone Elsewhere, Pcp Primary Care Provider Unavailable Encounter Details Date Type Department Care Team Description 11/01/2020 Clinical Communication Department of Urology Geraldo Spear in Catrachita Hernandez M.D. [address] 200 [place] [phone] [phone] Social History Tobacco Use Types Packs/Day Years [...] How often do you attend mandaen or episcopal 1 to 4 times per year 12/23/2021 [...] Nicholas APRN, C.N.P., D.N.P., M.S.N. [address] [place] [address] 55 [phone] (Wo rk) 07/31/2022 Lab Laboratory Medicine Tony Rubalcava M. B., ChBurke, MDebra [address] [place] [address] [phone] (Wo rk) 07/31/2022 Lab Laboratory Medicine Tony Rubalcava M. B., ChBurke, MDebra [address] [place] [address] [phone] (Wo rk) 07/31/2022 Office Visit Transplant Tony Rubalcava M.B., ChBurke, MDebra [address] [place] [address] [phone] (Wo rk) 07/31/2022 Appointment Radiology Tony Rubalcava M.B., ChBurke, MDebra [address] [place] [address] [phone] (Wo rk) 08/01/2022 Office Visit Transplant Tony Rubalcava M.B., Mukund Otoole [address] [place], [place] 55 [phone] (Wo rk) 08/01/2022 Clinical Support Transplant Tony Rubalcava M.B., Sydnie, Mukund [address] [place] [address] [phone] (Wo rk) documented as of this encounter Visit Diagnoses Not on filedocumented in this encounter Additional Health Concerns Assessment Noted Time PHQ-9 Depression Total Score: 4 01/30/2019 12:13 PM CD T documented as of this encounter Care Teams Press Worker Helper Relationship Specialty Start Date End Date Elsewhere, Pcp PCP - General 09/17/19 documented as of this encounter
--- OUTSIDE RECORDS SUMMARY | 2022-05-25 13:12 | XMS_ITS | Encounter Summary ---
:1960 Author Organization [facility] Address [address] [place] [address] Care Team Providers Name Role Phone Elsewhere, Pcp Primary Care Provider Unavailable Encounter Details Date Type Department Care Team Description 10/20/2020 Orders Only Pharmacy Prior Auth RO Elsewhere, Pcp [phone] Social History Tobacco Use Types Packs/Day Years [...] How often do you attend restorationism or bahai 1 to 4 times per [...] Nicholas APRN, C.N.P., D.N.P., M.S.N. [address] [place] [address] 55 [phone] (Wo rk) 07/31/2022 Lab Laboratory Medicine Tony Rubalcava M. B., Sydnie, MDebra [address] [place] [address] [phone] (Wo rk) 07/31/2022 Lab Laboratory Medicine Tony Rubalcava M. B., Sydnie, Mukund [address] [place] [address] [phone] (Wo rk) 07/31/2022 Office Visit Transplant Tony Rubalcava M.B., Sydnie, MDebra [address] [place] [address] [phone] (Wo rk) 07/31/2022 Appointment Radiology Tony Rubalcava M.B., Sydnie, MDebra [address] [place] [address] [phone] (Wo rk) 08/01/2022 Office Visit Transplant Tony Rubalcava M.B., Ch.Mukund Richards [address] [place], [place] 55 [phone] (Wo rk) 08/01/2022 Clinical Support Transplant BentTony benitez M.B., Mukund Otoole [address] [place], [place] [phone] (Wo rk) documented as of this encounter Visit Diagnoses Not on filedocumented in this encounter Additional Health Concerns Infection Onset Date Last Indicated Resolved Time COVID19 Pending 11/16/2020 11/16/2020 11/16/2020 7:07 PM CDT [id number]: Has been isolated 11/16/2020 11/16/2020 11/29/2020 2:34 PM CDT for 14 days. She is not symptomatic. Assessment Noted Time PHQ-9 Depression Total Score: 4 01/30/2019 12:13 PM CD T documented as of this encounter Care Teams Histology Tech Relationship Specialty Start Date End Date Elsewhere, Pcp PCP - General 09/17/19 documented as of this encounter
--- OUTSIDE RECORDS SUMMARY | 2022-05-25 13:12 | XMS_ITS | Encounter Summary ---
:1960 Author Organization [facility] Address [address] [place] [address] Care Team Providers Name Role Phone Elsewhere, Pcp Primary Care Provider Unavailable Encounter Details Date Type Department Care Team Description 11/01/2020 Clinical Communication Department of Urology Geraldo Spear in Catrachita Hernandez M.D. [address] 200 [place] [phone] Social History Tobacco Use Types Packs/Day Years [...] How often do you attend sabianist or latter-day 1 to 4 times per [...] Nicholas APRN, C.N.P., D.N.P., M.S.N. [address] [place] [address] [phone] (Wo rk) 07/31/2022 Lab Laboratory Medicine Tony Rubalcava M. B., ChBurke, MDebra [address] [place] [address] [phone] (Wo rk) 07/31/2022 Lab Laboratory Medicine Tony Rubalcava M. B., ChBurke, MDebra [address] [place] [address] [phone] (Wo rk) 07/31/2022 Office Visit Transplant Tony Rubalcava M.B., ChBurke, MDebra [address] [place] [address] [phone] (Wo rk) 07/31/2022 Appointment Radiology Tony Rubalcava M.B., ChBurke, MDebra [address] [place] [address] [phone] (Wo rk) 08/01/2022 Office Visit Transplant Tony Rubalcava M.B., Mukund Otoole [address] [place], [place] 55 [phone] (Wo rk) 08/01/2022 Clinical Support Transplant Tony Rubalcava M.B., Sydnie, Mukund [address] [place] [address] [phone] (Wo rk) documented as of this encounter Visit Diagnoses Not on filedocumented in this encounter Additional Health Concerns Assessment Noted Time PHQ-9 Depression Total Score: 4 01/30/2019 12:13 PM CD T documented as of this encounter Care Teams Trade Clerk Relationship Specialty Start Date End Date Elsewhere, Pcp PCP - General 09/17/19 documented as of this encounter
--- OUTSIDE RECORDS SUMMARY | 2022-05-25 13:12 | XMS_ITS | Encounter Summary ---
:1960 Author Organization [facility] Address [address] [place] [address] Care Team Providers Name Role Phone Elsewhere, Pcp Primary Care Provider Unavailable Encounter Details Date Type Department Care Team Description 10/22/2020 Orders Only Pharmacy Prior Auth Janis Weldon [phone] Social History Tobacco Use Types Packs/Day Years [...] 12/23/2021 relatives? How often do you attend buddhism or amish 1 to 4 times per year 12/23/2021 services? Do you belong to any clubs or organizations such No 12/23/2021 as buddhism groups, unions, fraternal or athletic groups, or [...] Nicholas APRN C.N.P., D.N.P., M.S.N. [address] [place] [address] 55 [phone] (Nicolas wen) 07/31/2022 Lab Laboratory Medicine Tony Rubalcava M. B., ChBurke, M.D. [address] [place] [address] [phone] (Nicolas wen) 07/31/2022 Lab Laboratory Medicine Tony Rubalcava M. B., ChDaviBDavi, MDaviD. [address] [place] [address] [phone] (Nicolas wen) 07/31/2022 Office Visit Transplant Tony Rubalcava M.B., ChDaviBDavi, M.D. [address] [place] [address] [phone] (Nicolas wen) 07/31/2022 Appointment Radiology Tony Rubalcava M.B., ChDaviBDavi, MDaviD. [address] [place] [address] [phone] (Nicolas wen) 08/01/2022 Office Visit Transplant Tony Rubalcava M.B., Mukund Otoole [address] [place], [place] 55 [phone] (Wo rk) 08/01/2022 Clinical Support Transplant Tony Rubalcava M.B., Mukund Otoole [address] [place], [place] [phone] (Wo behzad) documented as of this encounter Visit Diagnoses Not on filedocumented in this encounter Additional Health Concerns Assessment Noted Time PHQ-9 Depression Total Score: 4 01/30/2019 12:13 PM CD T documented as of this encounter Care Teams Water Treatment Specialist Relationship Specialty Start Date End Date Elsewhere, Pcp PCP - General 09/17/19 documented as of this encounter
--- OUTSIDE RECORDS SUMMARY | 2022-05-25 13:12 | XMS_ITS | Encounter Summary ---
:1960 Author Organization [facility] Address [address] [place] [address] Care Team Providers Name Role Phone Elsewhere, Pcp Primary Care Provider Unavailable Encounter Details Date Type Department Care Team Description 10/14/2020 Surgery Outpatient Procedure Юлия Painter [facility] in Ludwin Hernandez M.D. NEUROSTIMULATOR ELECTRODE [place] 200 [facility]. [address] [place] [phone] Social History Tobacco Use Types Packs/Day Years [...] 12/23/2021 relatives? How often do you attend cheondoism or quaker 1 to 4 times per year 12/23/2021 services? Do you belong to any clubs or organizations such No 12/23/2021 as cheondoism groups, unions, fraternal or athletic groups, or [...] Sign Reading Time Taken Comments Blood Pressure 228/119 10/14/2020 9:16 AM ELEMENT WINDING MACHINE TENDER Pulse 64 10/14/2020 9:20 AM ELEMENT WINDING MACHINE TENDER Temperature 36.8 ??C (98.2 ??F) 10/14/2020 9:16 AM ELEMENT WINDING MACHINE TENDER Respiratory Rate 22 10/14/2020 9:20 AM ELEMENT WINDING MACHINE TENDER Oxygen Saturation 97% 10/14/2020 9:20 AM ELEMENT WINDING MACHINE TENDER Inhaled Oxygen Concentration - - Weight 97 kg (213 lb 13.5 oz) 10/14/2020 8:11 AM ELEMENT WINDING MACHINE TENDER Height 165.1 cm (5' 5) 10/14/2020 8:11 AM ELEMENT WINDING MACHINE TENDER Body Mass Index 35.59 10/14/2020 8:11 AM ELEMENT WINDING MACHINE TENDER documented in this encounter Discharge Instructions Discharge Francesca Read M.D. - 10/14/2020 9:44 AM CST Peripheral Stimulation Implant-[employer]?? Bathing ??? Do [...] pain or tenderness at the lead site(s) You experience a loss of stimulation or have issues with the device ENT WINDING MACHINE TENDER documented in this encounter Medications at Time of Discharge Medication Sig Dispensed Refills Start Date End Date hydrocortisone Apply 1 application 0 09/18/2017 (for_HYTONE) 2.5 % topically daily as cream needed (Eczema). Bystolic 10 mg TAKE 1 TABLET(10 MG) 90 tablet 3 08/30/2020 04/07/2022 tabletIndications: BY MOUTH DAILY Transplant Renal (HCC) gabapentin (NEURONTIN) Take 3 capsules (300 450 capsule 3 04/15/2021 100 mg capsule mg total) by mouth as directed. 3 in am 2 in PM mycophenolate TAKE 1 CAPSULE(250 180 capsule 3 [...] 6 (six) hours as needed for pain. calcium carbonate Chew 2 tablets 2 0 [...] scrub right arm from fingers to shoulder. lidocaine-prilocaine APPLY TOPICALLY TO 60 g 11 020 04/07/2022 (EMLA) 2.5-2.5 % cream DIALYSIS ACCESS SITE 30 MINUTES PRIOR TO TREATMENT--GENERIC FOR EMLA multivitamin renal Take 1 tablet by 30 tablet 11 06/06/2019 09/22/2021 failure (DIALYVITE) mouth every evening. 100-1 mg tablet predniSONE (DELTASONE) Take 1 tablet (5 mg 90 tablet 3 01/1902/28/2021 5 mg tablet total) by mouth daily. rosuvastatin (CRESTOR) TAKE 1 TABLET BY 90 tablet 3 020 01/13/2021 5 mg tablet MOUTH DAILY. sevelamer (RENVELA) 800 Take 1 tablet (800 90 tablet 3 03/202001/18/2021 mg tablet mg total) by mouth daily with breakfast. Take with largest meal of the day warfarin (COUMADIN) 5 Take 5 mg daily 90 tablet 3 0 10/15/2020 mg tablet except Sunday and Sunday, take 2.5 mg documented as of this encounter OR Notes Op Note - Francesca Santana M.D. - 10/14/2020 9:15 AM CST FULL OP NOTE Procedure(s) (LRB): Sprint INSERTION NEUROSTIMULATOR ELECTRODE PERIPHERAL. (Right) Surgeon(s) and Role: * Юлия Painter M.D. - Primary Anesthesia Type Monitored anesthesia care Pre-operative Diagnosis right ulner intractable pain. Post-operative Diagnosis right ulner intractable pain. Findings As expected. Complications Description of Procedure Ulnar Nerve Sprint The patient was identified and evaluated in the preoperative holding area. Risks, benefits, alternatives and team approach were discussed, and the pertinent surgical site was verified and marked with initials. The patient had an opportunity to ask questions, and wished to proceed. The patient was transported to the operating room and appropriate anesthetic care was provided. The patient was carefully positioned prone, avoiding all pressure points. The patient was then prepped and draped in usual sterile fashion. A procedural pause was then conducted. Ultrasound was used to identify the ulnar nerve above the fistula site and distal from the axillary space. Prior to preparing the skin for the procedure a PRE scan was performed to identify the target location of stimulation and axillary artery and vein. This was compared to the diagnostic procedure pe rformed previously and was similar location. The skin and subcutaneous tissues approximately 5 centimeters proximal to the area of desired stimulation in the identified space was anesthetized with local anesthetic.The peripheral neurostimulator was placed outside of the sterile field over clean skin. Care was taken to assure that local anesthetic was not administered close to the target neurostimulator lead site to prevent an altered response to stimulation. Test stimulation was delivered via a 17 gauge percutaneous sleeve and 19 gauge stimulating probe inside the sleeve to assist in identifying the optimal lead location. The target location for the treatment of pain was identified. The Testim needle was placed utilizing ultrasound from an out of plane position proximal to distal utilizing the walked down technique such that the ultimate stimulation position was 3-4 mm superficial to the target nerve. Needle position was verified both in the in plane out of plane you with ultrasound. A provided test cable was connected to the probe and the intensity was adjusted until comfortable sensations produced by the neurostimulator covered the regions of chronic pain with repositioning the probe, as necessary, to identify the optimal location. Once optimal location was identified, stimulation was turned off, the test cable was disconnected from the stimulating probe, and the stimulating probe was removed from the sleeve. The 20 gauge Microlead Introducer containing the lead was inserted into the percutaneous sleeve and advanced to the established target depth. The connector box was connected to the de-inuslated end of the lead and the cable was connected to the Stimulator. Optimized stimulation parameters were tested again beginning at slightly lower intensity. Intensity was adjusted until the desire response was obtained. The location and depth of the electrode was noted. Stimulation was turned off. The connector box was disconnected from the microlead, and the introducer and sleeve were then withdrawn while manual pressure was applied at the exit site at which point the lead was deployed, secured and implanted. A small amount of Dermabond was placed a the exit site of the elctrode and allowed to dry. The connector box was reconnected and stimulation was again delivered to confirm that the lead did not move upon removal of the introducer. The lead position was confirmed by the presence of comfortable sensations in the painful areas. The lead was coiled to allow for strain relief then threaded through and secured into the connector box and secured in a cradle. Excess lead was trimmed to length. Thecable was inserted into the neurostimulator and the neurostimulator was positioned, at which point the final stimulation response again confirmed optimal lead placement. The area, including the lead, connecting box and cable, was dressed with occlusive dressing and the patient and caregiver were instructed on the proper management of the site and how to operate the External Pulse Generator (EPG) and the hand held patient associate programmer analyst. Specimens None Drains Ureteral Drain/Stent Right (Active) 09/16/19 1700 Right Placed by External Staff?: Placed by: Location: Other (Comment) Tube Size (Fr.): Urine Returned: Removal Reason: Dressing Status No dressing 01/22/20 1735 Estimated Blood Loss 0 mL Implants Implant Name Type Inv. Item Serial No. Feed Adviser Lot No. LRB No. Used Action Sprint endura PNS system Stimulator Other Unknown [id number] Right 1 Implanted Intra-op Medications None Francesca Santana M.D. ENT WINDING MACHINE TENDER documented in this encounter Plan of Treatment Upcoming Encounters Date Type Specialty Care Team Description 06/01/2022 Telemedicine Pharmacy An Nicholas APRN, C.N.P., D.N.P., M.S.N. [address] [place] [address] [phone] (Wo behzad) 07/31/2022 Lab Laboratory Medicine Tony Rubalcava M. B., Sydnie, MDebra [address] [place] [address] [phone] (Wo rk) 07/31/2022 Lab Laboratory Medicine Tony Rubalcava M. B., Sydnie, Mukund [address] [place] [address] [phone] (Wo rk) 07/31/2022 Office Visit Transplant Tony Rubalcava M.B., Mukund Otoole [address] [place] [address] [phone] (Wo rk) 07/31/2022 Appointment Radiology Tony Rubalcava M.B., Mukund Otoole [address] [place] [address] [phone] (Nicolas wen) 08/01/2022 Office Visit Transplant Tony Rubalcava M.B., Sydnie, Mukund [address] [place] [address] [phone] (Nicolas wen) 08/01/2022 Clinical Support Transplant Tony Rubalcava M.B., Sydnie, Mukund [address] [place] [address] [phone] (Nicolas wen) Pending Results Name Type Priority Associated Date/Time Diagnoses PM US Intraoperative Procedural Imaging Routine 0 10/14/2020 11:09 AM ELEMENT WINDING MACHINE TENDER documented as of this encounter Procedures Procedure Name Priority Date/Time Associated Diagnosis Comme nts INSERTION NEUROSTIMULATOR 10/14/2020 9:40 AM right uln er ELECTRODE PERIPHERAL ELEMENT WINDING MACHINE TENDER intractable pain. documented in this encounter Visit Diagnoses Not on filedocumented in this encounter Administered Medications Inactive Administered Medications - up to 3 most recent administrations Medication Order MAR Action Action Date Dose Rate Site acetaminophen tablet 1,000 mg Given 10/14/2020 9:03 AM ELEMENT WINDING MACHINE TENDER 1,000 mg (TYLENOL) 1,000 mg, oral, Once, On Elizabeth 10/14/20 at 0845, For 1 dose, Pre-Op [id number] Given 10/14/2020 10:38 AM 3 mL Right Arm 0.25%-0.5%-1:200,000 injection 100 mL ELEMENT WINDING MACHINE TENDER 100 mL, subcutaneous, Once, On Elizabeth 10/14/20 at 0830, For 1 dose, Intra-Op, In OR used as local anesthetic metoprolol tablet 12.5 mg (LOPRESSOR) 12.5 mg, oral, Once as needed, if patien t did not take their last scheduled dose of beta leana prior to arrival, Starting on Elizabeth 10/14/20 at 0803, For 1 dose, Pre-Op, Do not give if patient does not take scheduled beta bl ockers, if patient is receiving intravenous vasopressors or inotropes, if he art rate is less than 50 beats per minute, if systolic blood pres sure is less than 90 mmHg or if diastolic blood pressure is less than 40 mmHg, or if patient has an allergy to metoprolol. NaCl 0.9% infusion New Bag 10/14/2020 10:00 AM ELEMENT WINDING MACHINE TENDER 20 mL/hr, intravenous, Continuous, Starting on Elizabeth 10/14/20 at 0930 sodium chloride 0.9 % injection 10 mL 10 mL, intravenous, As needed, line care , Starting on Elizabeth 10/14/20 at 0803, Pre-Op, Peripheral Intravenous Catheter and Rapid Infusion Cat heter, prior to blood sampling, post blood transfusion or post blood samplin g sodium chloride 0.9 % injection 3 mL 3 mL, intravenous, As needed, line care, Starting on Elizabeth 10/14/20 at 0803, Pre-Op, Prior to and following infusion and betw een multiple consecutive infusions: sodium chloride 0.9 % injection sodium chloride 0.9 % injection 3 mL 3 mL, intravenous, Every 12 hours scheduled, First dos e on Elizabeth 10/14/20 at 0900, Pre-Op, Peripheral Intravenous Catheter and Rapid Infu mario alberto Catheter, when no infusion to maintain patency documented in this encounter Active and Recently Administered Medications Times are shown in ELEMENT WINDING MACHINE TENDER. Scheduled Medication Order 10/12/2020 10/13/2020 10/14/2020 acetaminophen tablet 1,000 mg (TYLENOL) (COMPLETED) 0903 (Given - Provider: Vida Hernandez R.N.) 1,000 mg, oral, Once, On Elizabeth 10/14/20 at 0845, For 1 dose, Pre-Op [id number] 0.25%- 0.5%-1:200,000 injection 100 mL (COMPLETED) 0830 (Due)1038 (Give n - Provider: Юлия Painter M.D.) 100 mL, subcutaneous, Once, On Elizabeth at 0830, For 1 dose, Intra-Op, In OR used as local anesthetic ceFAZolin injection 2,000 mg (ANCEF) (COMPLETED) 1010 (Given - Provider: Kaykay Beltran APRN, FLORENCIO) 2,000 mg (rounded from 2,425 mg = 25 mg/ kg ? 97 kg), intravenous, Once, On Elizabeth 10/14/20 at 0830, For 1 dose, Intra-Op, Preoperatively within 1 hour prior to surgical incision If needed, reconstitute via l per package insert instructions. See I VAG for administration guidelines. , , Drug Monitoring Program: Pharmacist to adjust medication dosing based on indication and drug clearance factors., Indications: Prophylaxis, surgical lidocaine 10 mg/mL (1 %) injection 0.1 mL (XYLOCAINE) 0815 (Due) 0.1 mL, intradermal, Once, Elizabeth 10/14/20 a t 0815, For 1 dose, Pre-Op, For IV Placement, Cabinetmaker Supervisor, PreOp sodium chloride 0.9 % injection 3 mL 0900 (Due) 3 mL, intravenous, Every 12 hours schedu led, First dose on Elizabeth 10/14/20 at 0900, Pre-Op, Peripheral Intravenous Catheter and Rapid Infusion Catheter, when no infusion to maintain patency Continuous Medication Order 10/12/2020 10/13/2020 10/14/2020 lactated ringers 0845 (Due) 20 mL/hr, intravenous, at 20 mL/hr, Cont inuous, Starting Elizabeth 10/14/20 at 0845, Pre-Op NaCl 0.9% infusion 1000 (New Bag - Provider: Kaykay Beltran APRN, FLORENCIO)1057 (Anesthesia Volume Adjustment - Provider: Kaykay Beltran APRN, FLORENCIO)1151 (Stopped - Provider: Ghislaine Puente R.N.) 20 mL/hr, intravenous, Continuous, Starting on Elizabeth 10/14/20 at 09 30 PRN Medication Order 10/12/2020 10/13/2020 10/14/2020 metoprolol tablet 12.5 mg (LOPRESSOR) 12.5 mg, oral, Once as needed, if patien t did not take their last scheduled dose of beta leana prior to arrival, Starting on Elizabeth 10/14/20 at 0803, For 1 dose, Pre-Op, Do not give if patient does not ta ke scheduled beta blockers, if patient i s receiving intravenous vasopressors or inotropes, if heart rate is less than 50 beats per minute, if systolic blood pressure is less than 90 mmHg or if diastolic blood pressure is less than 40 mmHg, or if patient has an allergy to metoprolol. sodium chloride 0.9 % injection 10 mL 10 mL, intravenous, As needed, line care , Starting on Elizabeth 10/14/20 at 0803, Pre- Op, Peripheral Intravenous Catheter and Rapid Infusion Catheter, prior to blood sampling, post blood transfusion or post blood sampling sodium chloride 0.9 % injection 3 mL 3 mL, intravenous, As needed, line care, Starting on Elizabeth 10/14/20 at 0803, Pre- Op, Prior to and following infusion and between multiple consecutive infusions: sodium chloride 0.9 % injection documented in this encounter Additional Health Concerns Assessment Noted Time PHQ-9 Depression Total Score: 4 01/30/2019 12:13 PM CD T documented as of this encounter Care Teams Nursery Worker Relationship Specialty Start Date End Date Elsewhere, Pcp PCP - General 09/17/19 documented as of this encounter
--- OUTSIDE RECORDS SUMMARY | 2022-05-25 13:12 | XMS_ITS | Encounter Summary ---
:1960 Author Organization [facility] Address [address] [place] [address] Care Team Providers Name Role Phone Elsewhere, Pcp Primary Care Provider Unavailable Encounter Details Date Type Department Care Team Description 10/18/2020 Orders Only Division of Nephrology and Zaire Candelario A PRN, Hypertension, Gnosticism C.N.P. [place], in [place], [address] [place] [address] [place] [address] [place] [address] [phone] Social History Tobacco Use Types Packs/Day Years [...] How often do you attend bahai or sikhism 1 to 4 times per [...] An Nicholas APRN C.N.P., D.N.P., M.S.N. [address] [place] [address] [phone] (Wo rk) 07/31/2022 Lab Laboratory Medicine Tony Rubalcava M. B., Sydnie, MDebra [address] [place] [address] [phone] (Wo rk) 07/31/2022 Lab Laboratory Medicine Tony Rubalcava M. B., ChBurke, MDebra [address] [place] [address] [phone] (Wo behzad) 07/31/2022 Office Visit Transplant Tony Rubalcava M.B., Sydnie, MDebra [address] [place] [address] 55 [phone] (Wo behzad) 07/31/2022 Appointment Radiology oTny Rubalcava M.B., Sydnie, Mukund [address] [place] [address] 55 [phone] (Wo rk) 08/01/2022 Office Visit Transplant Tony Rubalcava M.B., Mukund [place] [address] [place] [address] [phone] (Wo rk) 08/01/2022 Clinical Support Transplant Tony Rubalcava M.B., Mukund [place] [address] [place] [address] [phone] (Wo behzad) documented as of this encounter Visit Diagnoses Not on filedocumented in this encounter Additional Health Concerns Assessment Noted Time PHQ-9 Depression Total Score: 4 01/30/2019 12:13 PM CD T documented as of this encounter Care Teams Locomotive Oiler Relationship Specialty Start Date End Date Elsewhere, Pcp PCP - General 09/17/19 documented as of this encounter
--- OUTSIDE RECORDS SUMMARY | 2022-05-25 13:12 | XMS_ITS | Encounter Summary ---
:1960 Author Organization [facility] Address [address] [place] [address] Care Team Providers Name Role Phone Elsewhere, Pcp Primary Care Provider Unavailable Encounter Details Date Type Department Care Team Description 10/26/2020 Orders Only Department of Urology Geraldo Spear In fection Urinary Tract in Catrachita Hernandez M.D. (Primary Dx) [place] [address] [place] [address] 200 [place] [phone] Social History Tobacco Use Types Packs/Day Years [...] often do you attend oriental orthodox or anabaptist 1 to 4 times per [...] An Nicholas APRN C.N.P., D.N.P., M.S.N. [address] [place] [address] 55 [phone] (Wo rk) 07/31/2022 Lab Laboratory Medicine Tony Rubalcava M. B., ChBurke, MDebra [address] [place] [address] 55 [phone] (Wo rk) 07/31/2022 Lab Laboratory Medicine Tony Rubalcava M. B., ChBurke, MDebra [address] [place] [address] 55 [phone] (Wo rk) 07/31/2022 Office Visit Transplant Tony Rubalcava M.B., ChBurke, MDebra [address] [place] [address] 55 [phone] (Wo rk) 07/31/2022 Appointment Radiology Tony Rubalcava M.B., Mukund [place] [address] [place] [address] 55 [phone] (Wo rk) 08/01/2022 Office Visit Transplant Tony Rubalcava M.B., Mukund [place] [address] [place] [address] 55 [phone] (Wo rk) 08/01/2022 Clinical Support Transplant Tony Rubalcava M.B., Mukund [place] [address] [place] [address] 55 [phone] (Wo rk) documented as of this encounter Visit Diagnoses Diagnosis Infection Urinary Tract - Primary documented in this encounter Additional Health Concerns Assessment Noted Time PHQ-9 Depression Total Score: 4 01/30/2019 12:13 PM CD T documented as of this encounter Care Teams Can Repairer Relationship Specialty Start Date End Date Elsewhere, Pcp PCP - General 09/17/19 documented as of this encounter
--- OUTSIDE RECORDS SUMMARY | 2022-05-25 13:12 | XMS_ITS | Encounter Summary ---
:1960 Author Organization [facility] Address 200 [place] [address] Care Team Providers Name Role Phone Elsewhere, Pcp Primary Care Provider Unavailable Encounter Details Date Type Department Care Team Description 10/26/2020 Orders Only Department of Urology Shanon Benjamin Obstruction Ureter in [place] Hernandez M.D. (Primary Dx) [address] 200 [place] [phone] Social History Tobacco Use Types Packs/Day Years [...] 12/23/2021 relatives? How often do you attend muslim or restoration 1 to 4 times per year 12/23/2021 services? Do you belong to any clubs or organizations such No 12/23/2021 as muslim groups, unions, fraternal or athletic groups, or [...] for the very basics like Not v liyl hard 12/23/2021 food, housing, medical care, and [...] An Nicholas APRN C.N.P., D.N.P., M.S.N. [address] [place] [address] 55 [phone] (Wo rk) 07/31/2022 Lab Laboratory Medicine Tony Rubalcava M. B., ChBurke, MDbera [address] [place] [address] 55 [phone] (Wo rk) 07/31/2022 Lab Laboratory Medicine Tony Rubalcava M. B., ChBurke, MDebra [address] [place] [address] 55 [phone] (Wo rk) 07/31/2022 Office Visit Transplant Tony Rubalcava M.B., ChBurke, MDebra [address] [place] [address] 55 [phone] (Wo rk) 07/31/2022 Appointment Radiology Tony Rubalcava M.B., Mukund [place] [address] [place] [address] 55 [phone] (Wo rk) 08/01/2022 Office Visit Transplant Tony Rubalcava M.B., Mukund [place] [address] [place] [address] 55 [phone] (Wo rk) 08/01/2022 Clinical Support Transplant Tony Rubalcava M.B., Mukund [place] [address] [place] [address] 55 [phone] (Wo rk) documented as of this encounter Visit Diagnoses Diagnosis Obstruction Ureter - Primary documented in this encounter Additional Health Concerns Assessment Noted Time PHQ-9 Depression Total Score: 4 01/30/2019 12:13 PM CD T documented as of this encounter Care Teams Fire Extinguisher Inspector Relationship Specialty Start Date End Date Elsewhere, Pcp PCP - General 09/17/19 documented as of this encounter
--- OUTSIDE RECORDS SUMMARY | 2022-05-25 13:13 | XMS_ITS | Encounter Summary ---
:1960 Author Organization [facility] Address [address] [place] [address] Care Team Providers Name Role Phone Elsewhere, Pcp Primary Care Provider Unavailable Encounter Details Date Type Department Care Team Description 07/30/2020 Clinical Communication Division of Nephrology Steve Martínez and Hypertension in Fracisco Garcia D.O. [place], [place] [address] [facility] [address] [place] [phone] Social History Tobacco Use Types Packs/Day Years [...] How often do you attend mormon or quaker 1 to 4 times per [...] Encounter - Steve Martínez Jr., D.O. - 07/30/2020 8:28 AM ROUNDING AND BACKING MACHINE OPERATOR Email from the [facility] Dialysis unit in [place]: She has developed dysuria, urgency frequency and abdominal pain, going to: Bactrim double-strength 1orally daily for the next 10 days. DING AND BACKING MACHINE OPERATOR documented in this encounter Plan of Treatment Upcoming Encounters Date Type Specialty Care Team Description 06/01/2022 Telemedicine Pharmacy An Nicholas APRN, C.N.P., D.N.P., M.S.N. [address] [place] [address] 55 [phone] (Wo rk) 07/31/2022 Lab Laboratory Medicine Tony Rubalcava M. B., Ch.B., MDebra [address] [place] [address] 55 [phone] (Wo rk) 07/31/2022 Lab Laboratory Medicine Tony Rubalcava M. B., Ch.Miguelito., MDebra [address] [place] [address] [phone] (Wo rk) 07/31/2022 Office Visit Transplant Tony Rubalcava M.B., Sydnie, Mukund [address] [place] [address] [phone] (Wo rk) 07/31/2022 Appointment Radiology Tony Rubalcava M.B., Sydnie, Mukund [address] [place] [address] [phone] (Wo rk) 08/01/2022 Office Visit Transplant Tony Rubalcava M.B., Sydnie, Mukund [address] [place] [address] [phone] (Wo rk) 08/01/2022 Clinical Support Transplant Tony Rubalcava M.B., Sydnie, Mukund [address] [place] [address] 55 [phone] (Wo rk) documented as of this encounter Visit Diagnoses Not on filedocumented in this encounter Additional Health Concerns Assessment Noted Time PHQ-9 Depression Total Score: 4 01/30/2019 12:13 PM CD T documented as of this encounter Care Teams Food Safety Auditor Relationship Specialty Start Date End Date Elsewhere, Pcp PCP - General 09/17/19 documented as of this encounter
--- OUTSIDE RECORDS SUMMARY | 2022-05-25 13:13 | XMS_ITS | Encounter Summary ---
:1960 Author Organization [facility] Address [address] [place] [address] Care Team Providers Name Role Phone Elsewhere, Pcp Primary Care Provider Unavailable Encounter Details Date Type Department Care Team Description 09/09/2020 Clinical Communication Ata Hong, Center for Angelina J, Transplantation and Tete WHITE, Clinical Regeneration in [place], [place] [address] [facility] [address] [place] [address] [phone] Social History Tobacco Use Types Packs/Day Years [...] How often do you attend holiness or mandaeism 1 to 4 times per [...] Nicholas APRN, C.N.P., D.N.P., M.S.N. [address] [place] [address] 55 [phone] (Nicolas wen) 07/31/2022 Lab Laboratory Medicine Tony Rubalcava M. B., ChDaviBDavi, M.D. [address] [place] [address] 55 [phone] (Nicolas wen) 07/31/2022 Lab Laboratory Medicine Tony Rubalcava M. B., ChDaviBDavi, M.D. [address] [place] [address] 55 [phone] (Nicolas wen) 07/31/2022 Office Visit Transplant Tony Rubalcava M.B., ChBurke, MElvia. [address] [place] [address] 55 [phone] (Nicolas wen) 07/31/2022 Appointment Radiology Tony Rubalcava M.B., Mukund [place] [address] [place], [place] 55 [phone] (Wo rk) 08/01/2022 Office Visit Transplant Tony Rubalcava M.B., Mukund [place] [address] [place], [place] 55 [phone] (Nicolas rk) 08/01/2022 Clinical Support Transplant Tony Rubalcava M.B., Mukund [place] [address] [place], [place] 55 [phone] (Nicolas rk) documented as of this encounter Results HIV-1/-2 Ag and Ab Screen, Plasma (09/20/2020 5:30 AM DEATH CLAIM CLERK) P athologist Signature HIV-1/-2 Ag Negative Negative 09/21/2020 [facility] and Ab Screen, 9:45 PM DEATH CLAIM CLERK P Comment: Negative result does not rule out HIV in fection. If exposure to HIV infection occurred <14 d ays ago, contact the laboratory to request additi on of HIV-1 RNA detection / quantification test (HIV QN). Specimen Anatomical Collection Method Collection Time Receive d Time (Source) Location / / Volume Laterality Blood (Blood, 09/20/2020 5:30 AM 09/21/19 6:06 Venous) DEATH CLAIM CLERK PM DEATH CLAIM CLERK Resulting Agency Comment Mailed In Specimen Angelina Gaona APRN C.N.P., M.S.N. LAB MICROBIOL OGY - BLOOD ORDERABLES Performing Organization Address City/State/ZIP Code Phon e Number [facility] [address] [place] [address] SUPPORT CENTER [facility] [place] [address] Laboratory Medicine and Pathology [address] [place] HLA Class II SAB Antibody Screen (09/20/2020 5:30 AM DEATH CLAIM CLERK) Patholo gist Method Time Signature Class II SAB Positive Not Applicable 09/23/2020 [id number] Overall 10:15 AM DEATH CLAIM CLERK Result Class II SAB 37 09/23/2020 [facility] cPRA 10:15 AM DEATH CLAIM CLERK Comment: ----ADDITIONAL INFORMATION---- This PRA is a [facility] Tiss ue Typing Laboratory calculated PRA. PRA is based on the antigen frequency of the Tissue Typing patient a nd donor population. ??PRA reflects all antibodie s with a normalized value (MFI) above 300. SAB DRB1 Specificity NONE 09/23/2020 10:15 AM DEATH CLAIM CLERK [facility] SAB [id number] Specificity NONE 09/23/2020 10:15 AM DEATH CLAIM CLERK [facility] SAB DQB1 Specificity see below 09/23/2020 10:15 AM DEATH CLAIM CLERK [facility] Comment: 2(A*05:01;B*02:01)[7253] Format: Serologic Eq.(DQA1;DQB1 Mol. All jorge)[Normalized MFI] NOTE: Data is displayed in descending or kristi by Mean Fluorescence Intensity (MFI). ??Serologic equivalents can be di splayed multiple times for different molecular alleles. SAB DPB1 Specificity NONE 09/23/2020 10:15 AM DEATH CLAIM CLERK [facility] Comment: ----ADDITIONAL INFORMATION---- Method: Luminex Flow Cytometry CLIA: [id number] ??CLIA Mannequin Sander And Finisher: SHANTA LOYD MD,PhD Specimen Anatomical Collection Method Collection Time Receive d Time (Source) Location / / Volume Laterality Blood (Blood, 09/20/2020 5:30 AM 09/21/19 21 2:27 Venous) DEATH CLAIM CLERK PM DEATH CLAIM CLERK Resulting Agency Comment Mailed In Specimen Angelina Gaona APRN, C.N.P., M.S.N. LAB HLA ORDER JS Performing Organization Address City/State/ZIP Code Phon e Number [facility]IES - [address] [place], [place] [address] [facility] [place] [address] [facility] [address] HLA Class I SAB Antibody Screen (09/20/2020 5:30 AM DEATH CLAIM CLERK) [facility] Method Time Signature Class I SAB Positive Not Applicable 09/23/2020 [facility] Overall 9:49 AM DEATH CLAIM CLERK Result Class I SAB 13 09/23/2020 [facility] cPRA 9:49 AM DEATH CLAIM CLERK Comment: ----ADDITIONAL INFORMATION---- This PRA is a [facility] Tiss ue Typing Laboratory calculated PRA. PRA is based on the antigen frequency of the Tissue Typing patient a nd donor population. ??PRA reflects all antibodie s with a normalized value (MFI) above 300. SAB A Specificity see below 09/23/2020 9:49 AM DEATH CLAIM CLERK [facility] Comment: 32(32:01)[1569], 25(25:01)[859], 23(23:0 1)[701], 24(24:03)[635], 24(24:02)[567], 31(31:01 )[500] Format: Serologic Eq.(A Mol. Allele)[Nor malized MFI] NOTE: Data is displayed in descending or kristi by Mean Fluorescence Intensity (MFI). ??Serologic equivalents can be di splayed multiple times for different molecular alleles. SAB B Specificity see below 09/23/2020 9:49 AM DEATH CLAIM CLERK [facility] Comment: 51(51:01)[4261], 51(51:02)[2509], 49(49: 01)[2030], 78(78:01)[1620], 38(38:01)[1376], 63(15: 16)[1334], 75(15:02)[1305], 59(59:01)[1254], 77(15: 13)[1173], 52(52:01)[1159], 57(57:01)[1045], 57(57: 03)[888], 58(58:01)[857], 53(53:01)[855] Format: Serologic Eq.(B Mol. Allele)[Nor malized MFI] NOTE: Data is displayed in descending or kristi by Mean Fluorescence Intensity (MFI). ??Serologic equivalents can be di splayed multiple times for different molecular alleles. SAB C Specificity NONE 09/23/2020 9:49 AM DEATH CLAIM CLERK [facility] Comment: ----ADDITIONAL INFORMATION---- Method: Luminex Flow Cytometry CLIA: [id number] ??CLIA Mannequin Sander And Finisher: SHANTA LOYD MD,PhD Specimen Anatomical Collection Method Collection Time Receive d Time (Source) Location / / Volume Laterality Blood (Blood, 09/20/2020 5:30 AM 09/21/19 21 2:27 Venous) DEATH CLAIM CLERK PM DEATH CLAIM CLERK Resulting Agency Comment Mailed In Specimen Milli Conway APRNNDaviP., M.S.N. LAB HLA ORDER JS Performing Organization Address City/State/ZIP Code Phon e Number [facility] - [address] [place], [place] [address] [facility] [address] [place] [address] [facility] [address] documented in this encounter Visit Diagnoses Diagnosis Transplant Renal (HCC) - Primary Pretransplant Recipient Evaluation Exam Chronic Kidney Disease documented in this encounter Additional Health Concerns Assessment Noted Time PHQ-9 Depression Total Score: 4 01/30/2019 12:13 PM CD T documented as of this encounter Care Teams Medical Records Supervisor Relationship Specialty Start Date End Date Elsewhere, Pcp PCP - General 09/17/19 documented as of this encounter
--- OUTSIDE RECORDS SUMMARY | 2022-05-25 13:13 | XMS_ITS | Encounter Summary ---
:1960 Author Organization [facility] Address [address] [place] [address] Care Team Providers Name Role Phone Elsewhere, Pcp Primary Care Provider Unavailable Encounter Details Date Type Department Care Team Description 07/27/2020 Orders Only Alexa Mcdonald T [facility] for DIABETES PHYSICIAN, C.N.P., ([facility]) Transplantation and D.N.P. Clinical Regeneration in [address] [place] [address] [place] [address] [place] [address] [phone] Social History Tobacco Use Types Packs/Day Years [...] How often do you attend judaism or jew 1 to 4 times per [...] Nicholas APRN C.N.P., D.N.P., M.S.N. [address] [place] [address] 55 [phone] (Nicolas wen) 07/31/2022 Lab Laboratory Medicine Tony Rubalcava M. B., Ch.BDavi, M.D. [address] [place] [address] 55 [phone] (Nicolas wen) 07/31/2022 Lab Laboratory Medicine Tony Rubalcava M. B., Ch.BDavi, MDaviD. [address] [place] [address] 55 [phone] (Wo behzad) 07/31/2022 Office Visit Transplant Tony Rubalcava M.B., Ch.BDavi, M.D. [address] [place] [address] 55 [phone] (Wo behzad) 07/31/2022 Appointment Radiology Tony Rubalcava M.B., Mukund [place] [address] [place], [place] 55 [phone] (Wo rk) 08/01/2022 Office Visit Transplant Tony Rubalcava M.B., Mukund [place] [address] [place], [place] 55 [phone] (Wo rk) 08/01/2022 Clinical Support Transplant Tony Rubalcava M.B., Mukund [place] [address] [place], [place] 55 [phone] (Wo rk) documented as of this encounter Results Tacrolimus, B (09/27/2020 5:30 AM OTR VAN CDL TRUCK DRIVER) athologist Signature Tacrolimus, B 9.4 5.0-15.0 09/29/2020 [facility] (Trough) 5:45 PM OTR VAN CDL TRUCK DRIVER ng/mL Comment: ----ADDITIONAL INFORMATION---- Target steady-state trough [...] Location / / Volume Laterality Blood (Blood, 09/27/2020 5:30 AM 09/29/19 21 1:02 Venous) OTR VAN CDL TRUCK DRIVER PM OTR VAN CDL TRUCK DRIVER Resulting Agency Comment Mailed In Specimen Alexa Adan APRN, C.N.P., D.N.P. LAB BLOOD NON ADD -ON Performing Organization Address City/State/ZIP Code Phon e Number [facility] [address] [place], [place] [address] [facility] [place] [address] Laboratory Medicine and Pathology [address] [place] documented in this encounter Visit Diagnoses Diagnosis Transplant Renal (HCC) documented in this encounter Additional Health Concerns Assessment Noted Time PHQ-9 Depression Total Score: 4 01/30/2019 12:13 PM CD T documented as of this encounter Care Teams Instructor Business Education Relationship Specialty Start Date End Date Elsewhere, Pcp PCP - General 09/17/19 documented as of this encounter
--- OUTSIDE RECORDS SUMMARY | 2022-05-25 13:13 | XMS_ITS | Encounter Summary ---
:1960 Author Organization [facility] Address [address] [place] [address] Care Team Providers Name Role Phone Elsewhere, Pcp Primary Care Provider Unavailable Encounter Details Date Type Department Care Team Description 06/24/2020 Admin Visit Department of Family Medicine, [facility] in [place], [place] [address] [phone] Social History Tobacco Use Types Packs/Day Years [...] often do you attend jehovah's witness or gnosticist 1 to 4 times per [...] An Nicholas APRN C.N.P., D.N.P., M.S.N. [address] [place] [address] 55 [phone] (Nicolas wen) 07/31/2022 Lab Laboratory Medicine Tony Rubalcava M. B., ChDaviBDavi, MDaviD. [address] [place] [address] 55 [phone] (Nicolas wen) 07/31/2022 Lab Laboratory Medicine Tony Rubalcava M. B., Ch.BDavi, M.D. [address] [place] [address] 55 [phone] (Nicolas wen) 07/31/2022 Office Visit Transplant Tony Rubalcava M.B., ChDaviBDavi, MDaviD. [address] [place] [address] 55 [phone] (Nicolas wen) 07/31/2022 Appointment Radiology Tony Rubalcava M.B., Ch.BDavi, M.D. [address] [place] [address] 55 [phone] (Nicolas wen) 08/01/2022 Office Visit Transplant Tony Rubalcava M.B., Mukund [place] [address] [place], [place] 55 [phone] (Wo rk) 08/01/2022 Clinical Support Transplant Tony Rubalcava M.B., Mukund [place] [address] [place], [place] 55 [phone] (Wo behzad) documented as of this encounter Visit Diagnoses Not on filedocumented in this encounter Additional Health Concerns Infection Onset Date Last Indicated Resolved Time COVID19 Pending 06/23/2020 06/24/2020 06/26/2020 10:51 AM HYDROGRAPHIC SURVEYOR Assessment Noted Time PHQ-9 Depression Total Score: 4 01/30/2019 12:13 PM CD T documented as of this encounter Care Teams Ruching Machine Operator Relationship Specialty Start Date End Date Elsewhere, Pcp PCP - General 09/17/19 documented as of this encounter
--- OUTSIDE RECORDS SUMMARY | 2022-05-25 13:13 | XMS_ITS | Encounter Summary ---
:1960 Author Organization [facility] Address [address] [place] [address] Care Team Providers Name Role Phone Elsewhere, Pcp Primary Care Provider Unavailable Reason for Referral Outpatient (Routine) - Closed Specialty Diagnoses / Procedures Referred By Contact Refer red To Contact Diagnoses Pain Neuropathic Юлия Painter M.D. [facility] Procedures PM Nerve Block injection Ulnar; Right [address] [place] [address] Referral ID Status Reason Start Date Expiration Date Visits Requ ested Visits Authorized [id number] Closed 06/08/2020 06/08/2021 1 1 Reason for Visit Outpatient (Routine) - Closed Specialty Diagnoses / Procedures Referred By Contact Refer red To Contact Diagnoses Pain Neuropathic Юлия Painter M.D. [facility] Procedures PM Nerve Block injection Ulnar; Right [address] [place] [address] Referral ID Status Reason Start Date Expiration Date Visits Requ ested Visits Authorized [id number] Closed 06/08/2020 06/08/2021 1 1 Encounter Details Date Type Department Care Team Description 06/08/2020 Procedure visit Division of Pain Юлия Painter Pain Neuropathic Medicine gladys Mascorro M.D. (Primary Dx) [place], [place] [address] [facility] [address] [place] [phone] Social History Tobacco Use Types Packs/Day Years [...] How often do you attend orthodoxy or hindu 1 to 4 times per year 12/23/2021 [...] AM CDT documented as of this encounter Procedure Notes Юлия Painter M.D. - 06/08/2020 2:30 PM CDTAssociated Order(s): PM Nerve Block injection Ulnar; Right Post-Procedure Diagnose(s): Pain Neuropathic PM Nerve Block injection Ulnar; Right Date/Time: 06/08/2020 4:50 PM Performed by: Юлия Painter M.D. Authorized by: Юлия Painter M.D. Care team members present 1. Francesca Santana M.D. PROCEDURE SUMMARY Indications: Pain Pre procedure pain score: 1/10 Body area: upper extremity Procedure location (upper extremity nerve): Right ulnar Ulnar position: supine Needle size: 25 G Needle length: 2 in Nerve stimulator: No IMAGING Ultrasound guidance?: The use of direct ultrasound visualization of the needle was required (rather than a non-guided injection) to ensure accurate injection delivery and to maximize clinical benefit beyond that obtained with a non-guided injection. Additionally, there can be diagnostic specificity when evaluating effectiveness of the injection, and for safety purposes to minimize risk of bleeding orinjury to surrounding structures. Images have been archived in [employer]: click the 'Dept Filter' button in [employer], then the 'Clear (Show All)' button, then OK. Ultrasound probe (MHz): linear mid-frequency Needle visualization: [id number] Needle approach: lateral to medial Fluoroscopic guidance: No INJECTED MEDICATIONS: Injection(s), anesthetic agent(s) and/or steroid(s): The injected medication(s) listed was divided equally between the identified injection location(s) Total volume of injectate (mL): 2 Total steroid in injectate (mg): 0 1 mL lidocaine 20 mg/mL 1 mL ropivacaine (PF) 5 mg/mL (0.5 %) PROCEDURE DETAILS Ulnar description: The patient was placed in the appropriate position with the arm abducted with forearm supination. Prior to the procedure, and with appropriate imagining if needed, was used to identify the nerve in the short axis at the desired level to determine the location of the nerve and optimal needle path. Thereafter, a needle was advanced near the nerve and after negative aspiration, the medication was injected. Following the injection, the needle was withdrawn. The patient tolerated the procedure well and there were no apparent complications. After an appropriate amount of observation, the patient was dismissed from the clinic in good condition under their own power. Complications: no apparent complications CONSENT Consent obtained: written [employer] All relevant documentation and testing were reviewed and available. All required blood products, implants, devices and or special equipment were made available as applicable. Pre-procedure verificationwas conducted and the correct site was marked if required. A fire risk assessment was done as applicable. The procedural time-out was conducted prior to performing the procedure and confirmed in a procedural pause. PRE-PROCEDURE DETAILS Appropriate hand hygiene, gown, cap, mask, protective eyewear, sterile gloves, skin preparation, sterile drape, and strict aseptic technique were utilized as applicable for the procedure.: yes Skin preparation: Chlorhexidine SEDATION / ANESTHESIA Anesthesia method: local infiltration Local infiltrate type: lidocaine ATTESTATION STATEMENT A resident or fellow participated in the procedure, and the franchise business consultant was present for the entire procedure. OPERATIVE NOTE INFORMATION Specimens: 0 Drains: 0 Estimated blood loss: 0 Implants: 0 documented in this encounter Plan of Treatment Upcoming Encounters Date Type Specialty Care Team Description 06/01/2022 Telemedicine Pharmacy An Nicholas APRN C.N.P., D.N.P., M.S.N. [address] [place] [address] [phone] (Wo rk) 07/31/2022 Lab Laboratory Medicine Tony Rubalcava M. B., Sydnie, Mukund [address] [place] [address] [phone] (Wo rk) 07/31/2022 Lab Laboratory Medicine Tony Rubalcava M. B., Sydnie, Mukund [address] [place] [address] [phone] (Wo rk) 07/31/2022 Office Visit Transplant Tony Rubalcava M.B., Sydnie, Mukund [address] [place] [address] [phone] (Wo rk) 07/31/2022 Appointment Radiology Tony Rubalcava M.B., Mukund [place] [address] [place], [place] [phone] (Wo rk) 08/01/2022 Office Visit Transplant Tony Rubalcava M.B., Mukund [place] [address] [place] [address] [phone] (Wo behzad) 08/01/2022 Clinical Support Transplant Tony Rubalcava M.B., Mukund [place] [address] [place], [place] [phone] (Nicolas wen) documented as of this encounter Procedures Procedure Name Priority Date/Time Associated Diagnosis Comme nts PM NERVE BLOCK Routine 06/08/2020 2:30 PM Pain Neuropathic Res ults for this INJECTION CDT procedure are i n the results section. documented in this encounter Results PM Nerve Block injection Ulnar; Right (06/08/2020 2:30 PM CDT) Specimen (Source) Anatomical Location Collection Method / Collectio n Time Received Time / Laterality Volume Narrative Юлия Painter M.D. - 06/08/2020 2: 30 PM CDT Юлия Painter M.D. ? 06/09/2020 ??9:55 AM PM Nerve Block injection Ulnar; Right Date/Time: 06/08/2020 4:50 PM Performed by: Юлия Painter M.D. Authorized by: Юлия Painter M.D. Care team members present 1. Francesca Santana M.D. PROCEDURE SUMMARY Indications: Pain Pre procedure pain score: 1/10 ?? Body area: upper extremity Procedure location (upper extremity nerv e): Right ulnar Ulnar position: supine Needle size: 25 G Needle length: 2 in Nerve stimulator: No IMAGING Ultrasound guidance?: The use of direct ultrasound visualization of the needle was required (rather than a non-g uided injection) to ensure accurate injection delivery and to maxim ize clinical benefit beyond that obtained with a non-guided injection. ?? Additionally, there can be diagnostic specificity when evaluating e ffectiveness of the injection, and for safety purposes to minimize risk of bleeding or injury to surrounding structures. ?? Images have been archived in [employer]: click the 'Dept Filter' button in [employer], then the 'Clear (Show All)' button, then OK. Ultrasound probe (MHz): linear mid-frequ ency Needle visualization: [id number] Needle approach: lateral to medial Fluoroscopic guidance: No ?? INJECTED MEDICATIONS: Injection(s), anes thetic agent(s) and/or steroid(s): The injected medication(s) listed was di vided equally between the identified injection location(s) Total volume of injectate (mL): 2 Total steroid in injectate (mg): 0 1 mL lidocaine 20 mg/mL 1 mL ropivacaine (PF) 5 mg/mL (0.5 %) PROCEDURE DETAILS Ulnar description: The patient was place d in the appropriate position ?? with the arm abducted with forearm supin ation. ??Prior to the procedure, and with appropriate imagining if needed , was used to identify the nerve in the short axis at the desired level t o determine the location of the nerve and optimal needle path. Thereafte r, a needle was advanced near the nerve and after negative aspiration, the medication was injected. Following the injection, the needle was withdrawn. ??The patient tolerated the procedure well and there were no wendi arent complications. ??After an appropriate amount of observation, the p atient was dismissed from the clinic in good condition under their own power. ? Complications: no apparent complications ?? CONSENT Consent obtained: written [employer] All relevant documentation and testing w ere reviewed and available. All required blood products, implants, devic es and or special equipment were made available as applicable. Pre-proced ure verification was conducted and the correct site was marked if required. A fire risk assessment was done as applicable. The procedural time-out w as conducted prior to performing the procedure and confirmed in a procedu ral pause. PRE-PROCEDURE DETAILS Appropriate hand hygiene, gown, cap, mas k, protective eyewear, sterile gloves, skin preparation, sterile drape, and strict aseptic technique were utilized as applicable for the procedure .: yes ?? Skin preparation: ??Chlorhexidine SEDATION / ANESTHESIA Anesthesia method: local infiltration Local infiltrate type: lidocaine ATTESTATION STATEMENT A resident or fellow participated in the procedure, and the franchise business consultant was present for the entire procedure. OPERATIVE NOTE INFORMATION Specimens: 0 Drains: 0 Estimated blood loss: 0 Implants: 0 Юлия Painter M.D. PROCEDURE/MINOR SURGICAL ORD ERABLES documented in this encounter Visit Diagnoses Diagnosis Pain Neuropathic - Primary documented in this encounter Administered Medications Inactive Administered Medications - up to 3 most recent administrations Medication Order MAR Action Action Date Dose Rate Site lidocaine 20 mg/mL injection 1 mL Given 06/08/2020 4:50 PM CDT 1 mL (XYLOCAINE) 1 mL, injection, One-Time Injection, Starting on Sun06/08/20 at 1650, For 1 dose ropivacaine (PF) 5 mg/mL (0.5 %) injection 1 mL Given 06/08/2020 4:50 PM CDT 1 mL (NAROPIN) 1 mL, injection, One-Time Injection, Starting on Sun06/08/20 at 1650, For 1 dose documented in this encounter Additional Health Concerns Assessment Noted Time PHQ-9 Depression Total Score: 4 01/30/2019 12:13 PM CD T documented as of this encounter Care Teams Manager Entry Relationship Specialty Start Date End Date Elsewhere, Pcp PCP - General 09/17/19 documented as of this encounter
--- OUTSIDE RECORDS SUMMARY | 2022-05-25 13:13 | XMS_ITS | Encounter Summary ---
:1960 Author Organization [facility] Address [address] [place] [address] Care Team Providers Name Role Phone Elsewhere, Pcp Primary Care Provider Unavailable Encounter Details Date Type Department Care Team Description 08/03/2020 Lab Department of Laboratory Юлия Painter, Encounter For Screening Medicine and PathologyShashi. For Other Viral Diseases [place], [place] [address] [place] [address] (COVID-19) [place], [place] [address] [place] [phone] [place] [address] [phone] Social History Tobacco Use Types Packs/Day Years [...] How often do you attend anglican or orthodox 1 to 4 times per [...] Nicholas APRN, C.N.P., D.N.P., M.S.N. [address] [place] [address] [phone] (Nicolas wen) 07/31/2022 Lab Laboratory Medicine Tony Rubalcava M. B., ChDaviBDavi, M.D. [address] [place] [address] [phone] (Nicolas wen) 07/31/2022 Lab Laboratory Medicine Tony Rubalcava M. B., ChDaviBDavi, M.D. [address] [place] [address] [phone] (Nicolas wen) 07/31/2022 Office Visit Transplant Tony Rubalcava M.B., ChBurke, MElvia. [address] [place] [address] [phone] (Nicolas wen) 07/31/2022 Appointment Radiology Tony Rubalcava M.B., Mukund [place] [address] [place], [place] 55 [phone] (Wo rk) 08/01/2022 Office Visit Transplant Tony Rubalcava M.B., Mukund [place] [address] [place], [place] [phone] (Wo rk) 08/01/2022 Clinical Support Transplant Tony Rubalcava M.B., Mukund [place] [address] [place], [place] 55 [phone] (Wo rk) documented as of this encounter Procedures Procedure Name Priority Date/Time Associated Diagnosis Comme nts SARS CORONAVIRUS-2 Routine 08/03/2020 11:40 AM Encounter For R esults for this RNA, V WET FINISHER Screening For Other procedur e are in Viral Diseases the results (COVID-19) section. documented in this encounter Results SARS Coronavirus-2 RNA, V Asymptomatic (08/03/2020 11:40 AM WET FINISHER) [facility] gist Method Time Signature SARS-CoV-2 Swab, 08/03/2020 DTL Specimen Nasopharynx 8:57 PM WET FINISHER Source SARS CoV-2 Undetected Undetected 08/03/2020 DTL RNA, TMA 8:57 PM WET FINISHER Comment: SARS-CoV-2 RNA absent. This result does not rule out COVID-19 in the patient, as the sensitivity of the test depends o n the timing of the specimen collection and the quality of the specim en. Result should be correlated with patient's history and clinical presentat ion. ----ADDITIONAL INFORMATION---- This test is performed using the Aptima SARS-CoV-2 assay ([employer] which has received Emergency Use Authori zation (EUA) by the U.S. Food and Drug Administration. Fact sheets for this Emergency Use Autho rization (EUA) assay can be found at the following links: For Healthcare Providers: https://www.fd a.gov/media/178878/download For Patients: https://www.fda.gov/media/ 455634/download Specimen Anatomical Collection Method Collection Time Receive d Time (Source) Location / / Volume Laterality Varies 08/03/2020 11:40 08/03/2020 1:14 (Nasopharynx) AM WET FINISHER PM WET FINISHER Юлия Painter M.D. LAB MICROBIOLOGY - GENERAL O RDERABLES Performing Organization Address City/State/[facility] Code Phon e Number [facility] - [address] [place], [place] [address] [facility] [address] Laboratories-[facility] [address] documented in this encounter Visit Diagnoses Diagnosis Encounter For Screening For Other Viral Diseases (COVID-19) documented in this encounter Additional Health Concerns Infection Onset Date Last Indicated Resolved Time COVID19 Pending 08/03/2020 08/03/2020 08/03/2020 8:58 PM WET FINISHER Assessment Noted Time PHQ-9 Depression Total Score: 4 01/30/2019 12:13 PM CD T documented as of this encounter Care Teams Chief Growth Officer Relationship Specialty Start Date End Date Elsewhere, Pcp PCP - General 09/17/19 documented as of this encounter
--- OUTSIDE RECORDS SUMMARY | 2022-05-25 13:13 | XMS_ITS | Encounter Summary ---
:1960 Author Organization [facility] Address [address] [place] [address] Care Team Providers Name Role Phone Elsewhere, Pcp Primary Care Provider Unavailable Encounter Details Date Type Department Care Team Description 06/04/2020 Hospital Encounter Department of Riana Gaona Renal Laboratory Medicine Angelina Belle APRN, (HC C) and Pathology, [facility].P., [facility] [address] [place] [phone] [place] [address] [place], [place] (Work) [phone] Social History Tobacco Use Types Packs/Day Years [...] How often do you attend sabianist or uatsdin 1 to 4 times per [...] TAKE 1 TABLET(10 MG) 90 tablet 3 09/02/2019 08/30/2020 tabletIndications: BY MOUTH DAILY Transplant Renal (HCC) calcium carbonate Chew 2 tablets 2 0 0 04/07/2022 (TUMS) 500 mg (200 mg (two) times a day calcium) chewable with meals. Lunch tablet and dinner. ciprofloxacin (Cipro) Take 1 tablet (500 7 tablet 0 201908/18/2020 500 mg tablet mg total) by mouth daily. gabapentin (NEURONTIN) Take 3 capsules (300 450 [...] 1 Take 3 capsules (3 540 capsule 04/202003/07/2021 mg capsule mg total) by mouth 2 (two) times a day. warfarin (COUMADIN) 5 Take 5 mg daily 90 tablet 3 0 10/15/2020 mg tablet except Sunday and Sunday, take 2.5 mg documented as of this encounter Plan of Treatment Upcoming Encounters Date Type Specialty Care Team Description 06/01/2022 Telemedicine Pharmacy An Nicholas APRN C.N.P., D.N.P., M.S.N. [address] [place] [phone] (Nicolas wen) 07/31/2022 Lab Laboratory Medicine Tony Rubalcava M. B., Ch.B., M.D. [address] [place] [phone] (Nicolas wen) 07/31/2022 Lab Laboratory Medicine Tony Rubalcava M. B., Ch.B., M.D. [address] [place] [phone] (Nicolas wen) 07/31/2022 Office Visit Transplant Tony Rubalcava M.B., Mukund [place]toole [address] [place] [phone] (Wo rk) 07/31/2022 Appointment Radiology Tony Rubalcava M.B., Mukund [place] [address] [place] [phone] (Wo rk) 08/01/2022 Office Visit Transplant Tony Rubalcava M.B., Mukund [place] [address] [place] [phone] (Wo rk) 08/01/2022 Clinical Support Transplant Tony Rubalcava M.B., Mukund [place] [address] [place] [phone] (Wo rk) documented as of this encounter Procedures Procedure Name Priority Date/Time Associated Diagnosis Comme nts HLA CLASS II SAB Routine 06/21/2020 5:45 AM Transplant Renal R esults for this ANTIBODY SCREEN SUPERVISORY FORESTER (HCC) procedure ar e in the results section. HLA CLASS I SAB Routine 06/21/2020 5:45 AM Transplant Renal Re sults for this ANTIBODY SCREEN SUPERVISORY FORESTER (HCC) procedure ar e in the results section. documented in this encounter Results HLA Class II SAB Antibody Screen (06/21/2020 5:45 AM SUPERVISORY FORESTER) [facility] Method Time Signature Class II SAB Positive Not Applicable 06/24/2020 DBB8 Overall 8:01 AM SUPERVISORY FORESTER Result Class II SAB 37 06/24/2020 DBB8 cPRA 8:01 AM SUPERVISORY FORESTER Comment: ----ADDITIONAL INFORMATION---- This PRA is a [facility] calculated PRA. PRA is based on the antigen frequency of the Tissue Typing patient a nd donor population. ??PRA reflects all antibodie s with a normalized value (MFI) above 300. SAB DRB1 Specificity NONE 06/24/2020 8:01 AM SUPERVISORY FORESTER DBB8 SAB [id number] Specificity NONE 06/24/2020 8:01 A M SUPERVISORY FORESTER DBB8 SAB DQB1 Specificity see below 06/24/2020 8:01 AM SUPERVISORY FORESTER DBB8 Comment: 2(A*05:01;B*02:01)[8772] Format: Serologic Eq.(DQA1;DQB1 Mol. All jorge)[Normalized MFI] NOTE: Data is displayed in descending or kristi by Mean Fluorescence Intensity (MFI). ??Serologic equivalents can be di splayed multiple times for different molecular alleles. SAB DPB1 Specificity NONE 06/24/2020 8:01 AM SUPERVISORY FORESTER DBB8 Comment: ----ADDITIONAL INFORMATION---- Method: Luminex Flow Cytometry CLIA: [id number] ??CLIA Flotation Tender: SHANTA LOYD MD,PhD Specimen Anatomical Collection Method Collection Time Receive d Time (Source) Location / / Volume Laterality Blood (Blood, 06/21/2020 5:45 AM 06/22/20 20 Venous) SUPERVISORY FORESTER 10:47 AM SUPERVISORY FORESTER Resulting Agency Comment Mailed In Specimen Angelina Gaona APRN C.N.P., M.S.N. LAB HLA ORDER JS Performing Organization Address City/State/ZIP Code Phon e Number [facility] - 200 [place], [place] [address] [facility] [place] [address]BB[address] [place] [address] Laboratories-[facility] [address] [facility] HLA Class I SAB Antibody Screen (06/21/2020 5:45 AM SUPERVISORY FORESTER) [facility] Method Time Signature Class I SAB Positive Not Applicable 06/24/2020 DBB8 Overall 7:51 AM SUPERVISORY FORESTER Result Class I SAB 18 06/24/2020 DBB8 cPRA 7:51 AM SUPERVISORY FORESTER Comment: ----ADDITIONAL INFORMATION---- This PRA is a [facility] calculated PRA. PRA is based on the antigen frequency of the Tissue Typing patient a nd donor population. ??PRA reflects all antibodie s with a normalized value (MFI) above 300. SAB A Specificity see below 06/24/2020 7:51 AM SUPERVISORY FORESTER DBB8 Comment: 32(32:01)[2111], 25(25:01)[1172], 23(23: 01)[967], 24(24:03)[815], 24(24:02)[805], 31(31:01 )[592], 30(30:02)[538] Format: Serologic Eq.(A Mol. Allele)[Nor malized MFI] NOTE: Data is displayed in descending or kristi by Mean Fluorescence Intensity (MFI). ??Serologic equivalents can be di splayed multiple times for different molecular alleles. SAB B Specificity see below 06/24/2020 7:51 AM SUPERVISORY FORESTER DBB8 Comment: 51(51:01)[5426], 51(51:02)[3273], 49(49: 01)[2656], 78(78:01)[2096], 63(15:16)[1821], 38(38: 01)[1802], 75(15:02)[1706], 59(59:01)[1661], 77(15: 13)[1592], 52(52:01)[1505], 57(57:01)[1431], 57(57: 03)[1239], 53(53:01)[1191], 58(58:01)[1160] Format: Serologic Eq.(B Mol. Allele)[Nor malized MFI] NOTE: Data is displayed in descending or kristi by Mean Fluorescence Intensity (MFI). ??Serologic equivalents can be di splayed multiple times for different molecular alleles. SAB C Specificity NONE 06/24/2020 7:51 AM SUPERVISORY FORESTER DBB8 Comment: ----ADDITIONAL INFORMATION---- Method: Luminex Flow Cytometry CLIA: [id number] ??CLIA Flotation Tender: SHANTA LOYD MD,PhD Specimen Anatomical Collection Method Collection Time Receive d Time (Source) Location / / Volume Laterality Blood (Blood, 06/21/2020 5:45 AM 06/22/20 20 Venous) SUPERVISORY FORESTER 10:47 AM SUPERVISORY FORESTER Resulting Agency Comment Mailed In Specimen Angelina Gaona APRN, C.N.P., M.S.N. LAB HLA ORDER JS Performing Organization Address City/State/ZIP Code Phon e Number [facility] - [address] [place], [place] [address] [facility] [place] DBB[address] [place] [address] [facility] [address] documented in this encounter Visit Diagnoses Diagnosis Transplant Renal (HCC) documented in this encounter Additional Health Concerns Assessment Noted Time PHQ-9 Depression Total Score: 4 01/30/2019 12:13 PM CD T documented as of this encounter Care Teams Sighter Relationship Specialty Start Date End Date Elsewhere, Pcp PCP - General 09/17/19 documented as of this encounter
--- OUTSIDE RECORDS SUMMARY | 2022-05-25 13:13 | XMS_ITS | Encounter Summary ---
:1960 Author Organization [facility] Address [address] [place] [address] Care Team Providers Name Role Phone Elsewhere, Pcp Primary Care Provider Unavailable Reason for Visit Reason Onset Date Comments Outpatient COVID-19 Testing 06/24/2020 Encounter Details Date Type Department Care Team Description 06/24/2020 External Outreach Department of [facility] Paulina Bearden Infection Upper Medicine, [place] T, P.ADavi-C. Respiratory (Primary Clinic, in [place], [address] [place] [address] Dx) [place], [place] [address] [place] [address] [place], [place] [phone] [address] (Work) [phone] Social History Tobacco Use Types Packs/Day Years [...] How often do you attend voodoo or temple 1 to 4 times per [...] documented as of this encounter Progress Notes Claudette Abrams R.N. - 06/24/2020 11:13 AM CST Encounter created for the drive-through COVID-19 testing. ISITION EDITOR documented in this encounter Plan of Treatment Upcoming Encounters Date Type Specialty Care Team Description 06/01/2022 Telemedicine Pharmacy An Nicholas APRN, C.N.P., D.N.P., M.S.N. [address] [place] [address] [phone] (Wo rk) 07/31/2022 Lab Laboratory Medicine Tony Rubalcava M. B., ChBurke, MElvia. [address] [place] [address] [phone] (Wo rk) 07/31/2022 Lab Laboratory Medicine Tony Rubalcava M. B., ChBurke, MElvia. [address] [place] [address] 55 [phone] (Wo rk) 07/31/2022 Office Visit Transplant Tony Rubalcava M.B., Mukund Otoole [address] [place] [address] [phone] (Wo rk) 07/31/2022 Appointment Radiology Tony Rubalcava M.B., Mukund Otoole [address] [place] [address] [phone] (Wo rk) 08/01/2022 Office Visit Transplant Tony Rubalcava M.B., Mukund [place] [address] [place] [address] [phone] (Wo rk) 08/01/2022 Clinical Support Transplant Tony Rubalcava M.B., Sydnie, Mukund [address] [place] [address] [phone] (Wo rk) documented as of this encounter Procedures Procedure Name Priority Date/Time Associated Diagnosis Comme nts SARS CORONAVIRUS-2 Routine 06/24/2020 10:16 PM Infection Upper Results for this RNA, V ACQUISITION EDITOR Respiratory procedure are i n the results section. documented in this encounter Results SARS Coronavirus-2 RNA, V Symptomatic (06/24/2020 10:16 PM ACQUISITION EDITOR) [facility] Method Time Signature SARS-CoV-2 Swab, 06/26/2020 ECLR Specimen Nasopharynx 10:51 AM Source ACQUISITION EDITOR SARS CoV-2 Undetected Undetected 06/26/2020 ECLR RNA, TMA 10:51 AM ACQUISITION EDITOR Comment: SARS-CoV-2 RNA absent. This result does not rule out COVID-19 in the patient, as the sensitivity of the test depends o n the timing of the specimen collection and the quality of the specim en. Result should be correlated with patient's history and clinical presentat ion. ----ADDITIONAL INFORMATION---- This test is performed using the Aptima SARS-CoV-2 assay ([employer] which has received Emergency Use Authori zation (EUA) by the U.S. Food and Drug Administration. Fact sheets for this Emergency Use Autho rization (EUA) assay can be found at the following links: For Healthcare Providers: https://www.fd a.gov/media/651653/download For Patients: https://www.fda.gov/media/ 964942/download Specimen Anatomical Collection Method Collection Time Receive d Time (Source) Location / / Volume Laterality Varies 06/24/2020 10:16 06/24/2020 (Nasopharynx) PM ACQUISITION EDITOR 10:16 PM ACQUISITION EDITOR Jon Bearden P.A.-C. LAB MICROBIOLOGY - GENERAL O BENNYERABLES Performing Organization Address City/State/ZIP Code Phon e Number [facility]- [address] [place] [address] [phone] [facility] [place] [address] System [address] documented in this encounter Visit Diagnoses Diagnosis Infection Upper Respiratory - Primary documented in this encounter Additional Health Concerns Infection Onset Date Last Indicated Resolved Time COVID19 Pending 06/23/2020 06/24/2020 06/26/2020 10:51 AM ACQUISITION EDITOR Assessment Noted Time PHQ-9 Depression Total Score: 4 01/30/2019 12:13 PM CD T documented as of this encounter Care Teams Corporate Development Intern Relationship Specialty Start Date End Date Elsewhere, Pcp PCP - General 09/17/19 documented as of this encounter
--- OUTSIDE RECORDS SUMMARY | 2022-05-25 13:13 | XMS_ITS | Encounter Summary ---
:1960 Author Organization [facility] Address [address] [place] [address] Care Team Providers Name Role Phone Elsewhere, Pcp Primary Care Provider Unavailable Encounter Details Date Type Department Care Team Description 10/13/2020 Clinical Communication Department of Urology Geraldo Spear in [place] Hernandez M.D. [address] 200 [place] [phone] [phone] Social History Tobacco Use Types Packs/Day Years [...] How often do you attend uatsdin or baptist 1 to 4 times per [...] this encounter Miscellaneous Notes Telephone Encounter - Leslie Fuentes - 10/19/2020 3:44 PM CST Called patient got her all scheduled she's going to check portal and get urines done locally SPORT ASSISTANT documented in this encounter Plan of Treatment Upcoming Encounters Date Type Specialty Care Team Description 06/01/2022 Telemedicine Pharmacy An Nicholas APRN, C.N.P., D.N.P., M.S.N. [address] [place] [address] [phone] (Nicolas wen) 07/31/2022 Lab Laboratory Medicine Tony Rubalcava M. B., Ch.B., M.D. [address] [place] [address] 55 [phone] (Nicolas wen) 07/31/2022 Lab Laboratory Medicine Tony Rubalcava M. B., Ch.B., M.D. [address] [place] [address] 55 [phone] (Nicolas wen) 07/31/2022 Office Visit Transplant Tony Rubalcava M.B., Sydnie, Mukund [address] [place] [address] [phone] (Wo rk) 07/31/2022 Appointment Radiology Tony Rubalcava M.B., Sydnie, Mukund [address] [place] [address] 55 [phone] (Nicolas wen) 08/01/2022 Office Visit Transplant Tony Rubalcava M.B., Sydnie, Mukund [address] [place] [address] 55 [phone] (Nicolas wen) 08/01/2022 Clinical Support Transplant Tony Rubalcava M.B., Sydnie, Mukund [address] [place] [address] 55 [phone] (Nicolas wen) documented as of this encounter Visit Diagnoses Not on filedocumented in this encounter Additional Health Concerns Infection Onset Date Last Indicated Resolved Time COVID19 Pending 10/12/2020 10/12/2020 10/13/2020 2:18 AM TRANSPORT ASSISTANT Assessment Noted Time PHQ-9 Depression Total Score: 4 01/30/2019 12:13 PM CD T documented as of this encounter Care Teams Money Market Dealer Relationship Specialty Start Date End Date Elsewhere, Pcp PCP - General 09/17/19 documented as of this encounter
--- OUTSIDE RECORDS SUMMARY | 2022-05-25 13:13 | XMS_ITS | Encounter Summary ---
:1960 Author Organization [facility] Address [address] [place] [address] Care Team Providers Name Role Phone Elsewhere, Pcp Primary Care Provider Unavailable Encounter Details Date Type Department Care Team Description 08/18/2020 Orders Only Division of Nephrology and [place], Josué Quiles PRN, Hypertension, Baptist C.N.P. [place], in [place], [address] [place] [address] [place] [address] [place] [address] [phone] Social History Tobacco Use Types Packs/Day Years [...] How often do you attend yarsani or adventism 1 to 4 times per [...] Nicholas APRN C.N.P., D.N.P., M.S.N. [address] [place] [address] 55 [phone] (Nicolas rk) 07/31/2022 Lab Laboratory Medicine Tony Rubalcava M. B., ChBurke, MDebra [address] [place] [address] 55 [phone] (Wo rk) 07/31/2022 Lab Laboratory Medicine Tony Rubalcava M. B., ChBurke, MDebra [address] [place] [address] 55 [phone] (Wo rk) 07/31/2022 Office Visit Transplant Tony Rubalcava M.B., Sydnie, MDebra [address] [place] [address] 55 [phone] (Wo rk) 07/31/2022 Appointment Radiology Tony Rubalcava M.B., Mukund Otoole [address] [place] [address] 55 [phone] (Wo rk) 08/01/2022 Office Visit Transplant Tony Rubalcava M.B., Mukund Otoole [address] [place] [address] 55 [phone] (Wo rk) 08/01/2022 Clinical Support Transplant Tony Rubalcava M.B., Sydnie, Mukund [address] [place] [address] 55 [phone] (Wo behzad) documented as of this encounter Visit Diagnoses Not on filedocumented in this encounter Additional Health Concerns Assessment Noted Time PHQ-9 Depression Total Score: 4 01/30/2019 12:13 PM CD T documented as of this encounter Care Teams Manager Access Relationship Specialty Start Date End Date Elsewhere, Pcp PCP - General 09/17/19 documented as of this encounter
--- OUTSIDE RECORDS SUMMARY | 2022-05-25 13:13 | XMS_ITS | Encounter Summary ---
:1960 Author Organization [facility] Address [address] [place] [address] Care Team Providers Name Role Phone Elsewhere, Pcp Primary Care Provider Unavailable Encounter Details Date Type Department Care Team Description 08/05/2020 Hospital Encounter Outpatient Procedure [facility] [place] [facility] [place] [address] [facility] 200 [place] [phone] (Wo rk) Social History Tobacco Use Types [...] How often do you attend yarsanism or yazidi 1 to 4 times per [...] Sign Reading Time Taken Comments Blood Pressure 169/94 08/05/2020 12:55 PM SALES OUTFITTER Pulse 65 08/05/2020 12:55 PM SALES OUTFITTER Temperature 36.7 ??C (98.1 ??F) 08/05/2020 12:55 PM SALES OUTFITTER Respiratory Rate 14 08/05/2020 12:55 PM SALES OUTFITTER Oxygen Saturation 99% 08/05/2020 12:55 PM SALES OUTFITTER Inhaled Oxygen Concentration - - Weight 94.3 kg (207 lb 14.3 oz) 08/05/2020 12:34 PM SALES OUTFITTER Height - - Body Mass Index 34.6 01/20/2020 12:38 PM CDT documented in this encounter Discharge Instructions Discharge Alvina Pérez M.D. - 08/05/2020 12:49 PM CST Peripheral Stimulation Implant[employer]?? Bathing ??? [...] stimulation or have issues with the device S OUTFITTER documented in this encounter Medications at Time [...] scrub right arm from fingers to shoulder. ciprofloxacin (Cipro) Take 1 tablet (500 7 [...] An Nicholas APRN, C.N.P., D.N.P., M.S.N. [address] [place] [address] 55 [phone] (Nicolas wen) 07/31/2022 Lab Laboratory Medicine Tony Rubalcava M. B., Ch.B., M.D. [address] [place] [address] 55 [phone] (Nicolas wen) 07/31/2022 Lab Laboratory Medicine Tony Rubalcava M. B., Sydnie, Mukund [address] [place] [address] 55 [phone] (Wo behzad) 07/31/2022 Office Visit Transplant Tony Rubalcava M.B., Mukund Otoole [address] [place] [address] [phone] (Nicolas wen) 07/31/2022 Appointment Radiology Tony Rubalcava M.B., Mukund Otoole [address] [place] [address] 55 [phone] (Nicolas wen) 08/01/2022 Office Visit Transplant Tony Rubalcava M.B., Mukund Otoole [address] [place] [address] 55 [phone] (Nicolas wen) 08/01/2022 Clinical Support Transplant Tony Rubalcava M.B., Mukund Otoole [address] [place] [address] 55 [phone] (Nicolas wen) documented as of this encounter Visit Diagnoses Not on filedocumented in this encounter Administered Medications Inactive Administered Medications - up to 3 most recent administrations Medication Order MAR Action Action Date Dose Rate Site metoprolol tablet 12.5 mg (LOPRESSOR) 12.5 mg, oral, Once as needed, if patien t did not take their last scheduled dose of beta leana prior to arrival, Starting on Elizabeth 0 at 1225, For 1 dose, Pre-Op, Do not give if patient does not take scheduled beta blockers, if patient is receiving intravenous vasopressors or [...] needed, line care , Starting on Elizabeth 08/05/20 at 1225, Pre-Op, Peripheral Intravenous Catheter and Rapid Infusion Cat heter, prior to blood sampling, post blood transfusion or post blood samplin g sodium chloride 0.9 % injection 3 mL 3 mL, intravenous, As needed, line care, Starting on Elizabeth 08/05/20 at 1225, Pre-Op, Prior to and following infusion and betw een multiple consecutive infusions: sodium chloride 0.9 % injection sodium chloride 0.9 % injection 3 mL 3 mL, intravenous, Every 12 hours schedu led, First dose on Elizabeth 08/05/20 at 2100, Pre-Op, Peripheral Intravenous Catheter and Rapid Infu mario alberto Catheter, when no infusion to maintain patency documented in this encounter Active and Recently Administered Medications Times are shown in SALES OUTFITTER. Scheduled Medication Order 08/03/2020 08/04/2020 08/05/2020 [id number] 0.25%-0.5%-1:200,000 injection 100 mL 1245 (Due) 100 mL, subcutaneous, Once, Elizabeth 08/05/20 at 1245, For 1 dose, Intra-Op, In OR used as local anesthetic ceFAZolin injection 2,000 mg (ANCEF) 1245 (Due) 2,000 mg (rounded from 2,357.5 mg = 25 m g/kg ? 94.3 kg), intravenous, Once, Elizabeth 08/05/20 at 1245, For 1 dose, Intra-Op, Preoperatively within 1 hour prior to surgical incision If needed, reconstitute v ial per package insert instructions. See IVAG for administration guidelines. , , Drug Monitoring Program: Pharmacist to adjust medication dosing based on indication and drug clearance factors., Indications: Prophylaxis, surgical lidocaine 10 mg/mL (1 %) injection 0.1 mL (XYLOCAINE) 1230 (Due) 0.1 mL, intradermal, Once, Elizabeth 08/05/20 at 1230, For 1 dose, Pre-Op, For IV Placement, Outsoles Channel Opener, PreOp sodium chloride 0.9 % injection 3 mL 2100 (Due) 3 mL, intravenous, Every 12 hours schedu led, First dose on Elizabeth 08/05/20 at 2100, Pre-Op, Peripheral Intravenous Catheter and Rapid Infusion Catheter, when no infusion to maintain patency PRN Medication Order 08/03/2020 08/04/2020 08/05/2020 metoprolol tablet 12.5 mg (LOPRESSOR) 12.5 mg, oral, Once as needed, if patien t did not take their last scheduled dose of beta leana prior to arrival, Starting on Elizabeth 08/05/20 at 1225, For 1 dose, Pre-Op, Do not give if patient does not t angelita scheduled beta blockers, if patient is receiving intravenous vasopressors or inotropes, if heart rate is less than 50 beats per minute, if systolic blood pressure is less than 90 mmHg or if diastoli c blood pressure is less than 40 mmHg, o r if patient has an allergy to metoprolol. sodium chloride 0.9 % injection 10 mL 10 mL, intravenous, As needed, line care , Starting on Elizabeth 08/05/20 at 1225, Pre- Op, Peripheral Intravenous Catheter and Rapid Infusion Catheter, prior to blood sampling, post blood transfusion or post blood sampling sodium chloride 0.9 % injection 3 mL 3 mL, intravenous, As needed, line care, Starting on Elizabeth 08/05/20 at 1225, Pre- Op, Prior to and following infusion and between multiple consecutive infusions: sodium chloride 0.9 % injection documented in this encounter Additional Health Concerns Assessment Noted Time PHQ-9 Depression Total Score: 4 01/30/2019 12:13 PM CD T documented as of this encounter Care Teams Tunnel Kiln Operator Relationship Specialty Start Date End Date Elsewhere, Pcp PCP - General 09/17/19 documented as of this encounter
--- OUTSIDE RECORDS SUMMARY | 2022-05-25 13:13 | XMS_ITS | Encounter Summary ---
:1960 Author Organization [facility] Address [address] [place] [address] Care Team Providers Name Role Phone Elsewhere, Pcp Primary Care Provider Unavailable Reason for Visit Reason Comments Tacrolimus Adjustment Protocol Encounter Details Date Type Department Care Team Description 10/08/2020 Clinical [facility] for Elo L, Adjustment Transplantation and R.N., C.C.T. C. Protocol Clinical Regeneration [phone] [facility] (Work) [place] [phone] [place] [address] (Fax) [place] [phone] Social History Tobacco Use Types [...] 12/23/2021 relatives? How often do you attend druze or religion 1 to 4 times per year 12/23/2021 services? Do you belong to any clubs or organizations such No 12/23/2021 as druze groups, unions, fraternal or athletic groups, or [...] this encounter Miscellaneous Notes Telephone Encounter - Elo Ponce R.N., C.C.T.C. - 10/08/2020 7:37 AM CST Tacrolimus level is elevated. Patient states that she took her medications before dialysis which caused this to not be a true 12 hour trough. We discussed that it would be best if she could wait to take her medications until after her blood is drawn for dialysis. This will allow us to get a true 12 hour trough. Will continue her current dose and repeat a level in 1-2 weeks. CLOCK MECHANIC documented in this encounter Plan of Treatment Upcoming Encounters Date Type Specialty Care Team Description 06/01/2022 Telemedicine Pharmacy An Nicholas APRN, C.N.P., D.N.P., M.S.N. [address] [place] [address] 55 [phone] (Wo rk) 07/31/2022 Lab Laboratory Medicine Tony Rubalcava M. B., Ch.BDavi, M.Michelle. [address] [place] [address] 55 [phone] (Wo rk) 07/31/2022 Lab Laboratory Medicine Tony Rubalcava M. B., Sydnie, MDebra [address] [place] [address] 55 [phone] (Wo rk) 07/31/2022 Office Visit Transplant Tony Rubalcava M.B., Sydnie, MDebra [address] [place] [address] 55 [phone] (Wo rk) 07/31/2022 Appointment Radiology Tony Rubalcava M.B., Sydnie, Mukund [address] [place] [address] 55 [phone] (Wo rk) 08/01/2022 Office Visit Transplant Tony Rubalcava M.B., Sydnie, MDebra [address] [place] [address] 55 [phone] (Wo rk) 08/01/2022 Clinical Support Transplant Tony Rubalcava M.B., Sydnie, MDebra [address] [place] [address] 55 [phone] (Wo rk) documented as of this encounter Visit Diagnoses Not on filedocumented in this encounter Additional Health Concerns Assessment Noted Time PHQ-9 Depression Total Score: 4 01/30/2019 12:13 PM CD T documented as of this encounter Care Teams Review Manager Relationship Specialty Start Date End Date Elsewhere, Pcp PCP - General 09/17/19 documented as of this encounter
--- OUTSIDE RECORDS SUMMARY | 2022-05-25 13:13 | XMS_ITS | Encounter Summary ---
:1960 Author Organization [facility] Address [address] [place] [address] Care Team Providers Name Role Phone Elsewhere, Pcp Primary Care Provider Unavailable Encounter Details Date Type Department Care Team Description 06/08/2020 Education Division of Pain Preethi Edmondson, Candary[place] ( Clinic: Plan Medicine in [place], Stephanie Barron R.N. [facility]) [place] [address] [facility] [address] [place] [phone] Social History Tobacco Use Types Packs/Day Years [...] How often do you attend gnosticism or congregational 1 to 4 times per [...] An Nicholas APRN, C.N.P., D.N.P., M.S.N. [address] [place] [address] 55 [phone] (Wo rk) 07/31/2022 Lab Laboratory Medicine Tony Rubalcava M. B., Sydnie, MDebra [address] [place] [address] 55 [phone] (Wo rk) 07/31/2022 Lab Laboratory Medicine Tony Rubalcava M. B., ChBurke, MDebra [address] [place] [address] 55 [phone] (Wo rk) 07/31/2022 Office Visit Transplant Tony Rubalcava M.B., Sydnie, MDebra [address] [place] [address] 55 [phone] (Wo rk) 07/31/2022 Appointment Radiology Tony Rubalcava M.B., Sydnie, MDebra [address] [place] [address] 55 [phone] (Wo rk) 08/01/2022 Office Visit Transplant Tony Rubalcava M.B., Mukund Otoole [address] [place], [place] 55 [phone] (Wo rk) 08/01/2022 Clinical Support Transplant Tony Rubalcava M.B., Sydnie, Mukund [address] [place], [place] [phone] (Wo rk) documented as of this encounter Visit Diagnoses Not on filedocumented in this encounter Additional Health Concerns Assessment Noted Time PHQ-9 Depression Total Score: 4 01/30/2019 12:13 PM CD T documented as of this encounter Care Teams Education Site Manager Relationship Specialty Start Date End Date Elsewhere, Pcp PCP - General 09/17/19 documented as of this encounter
--- OUTSIDE RECORDS SUMMARY | 2022-05-25 13:13 | XMS_ITS | Encounter Summary ---
:1960 Author Organization [facility] Address [address] [place] [address] Care Team Providers Name Role Phone Elsewhere, Pcp Primary Care Provider Unavailable Reason for Visit Reason Onset Date Comments Outpatient COVID-19 Testing 06/23/2020 Encounter Details Date Type Department Care Team Description 06/23/2020 External Outreach Department of [facility] C[place], In [facility] Medicine in [facility], Respirato ry ([place], [place] C.N.P., D.N.P. Dx) [address] [facility] [address] [place] [address] [place], [place] [phone] Social History Tobacco Use Types Packs/Day Years [...] How often do you attend lutheran or buddhist 1 to 4 times per [...] documented as of this encounter Progress Notes Yumiko Coronado R.N. - 06/23/2020 2:17 PM CST Encounter created for the drive-through COVID-19 testing. CONTROLMAN documented in this encounter Plan of Treatment Upcoming Encounters Date Type Specialty Care Team Description 06/01/2022 Telemedicine Pharmacy An Nicholas APRN, C.N.P., D.N.P., M.S.N. [address] [place] [address] 55 [phone] (Wo rk) 07/31/2022 Lab Laboratory Medicine Tony Rubalcava M. B., Sydnie, MDebra [address] [place] [address] 55 [phone] (Wo rk) 07/31/2022 Lab Laboratory Medicine Tony Rubalcava M. B., Ch.BMukund Tomlinson [address] [place] [address] 55 [phone] (Wo rk) 07/31/2022 Office Visit Transplant Tony Rubalcava M.B., Sydnie, Mukund [address] [place] [address] 55 [phone] (Wo rk) 07/31/2022 Appointment Radiology Tony Rubalcava M.B., Sydnie, Mukund [address] [place] [address] 55 [phone] (Wo rk) 08/01/2022 Office Visit Transplant Tony Rubalcava M.B., Sydnie, Mukund [address] [place] [address] 55 [phone] (Wo rk) 08/01/2022 Clinical Support Transplant Tony Rubalcava M.B., Sydnie, MDebra [address] [place] [address] 55 [phone] (Wo rk) documented as of this encounter Visit Diagnoses Diagnosis Infection Upper Respiratory - Primary documented in this encounter Additional Health Concerns Infection Onset Date Last Indicated Resolved Time COVID19 Pending 06/23/2020 06/24/2020 06/26/2020 10:51 AM FIRE CONTROLMAN Assessment Noted Time PHQ-9 Depression Total Score: 4 01/30/2019 12:13 PM CD T documented as of this encounter Care Teams Facility Maintenance Mechanic Relationship Specialty Start Date End Date Elsewhere, Pcp PCP - General 09/17/19 documented as of this encounter
--- OUTSIDE RECORDS SUMMARY | 2022-05-25 13:13 | XMS_ITS | Encounter Summary ---
:1960 Author Organization [facility] Address [address] [place] [address] Care Team Providers Name Role Phone Elsewhere, Pcp Primary Care Provider Unavailable Encounter Details Date Type Department Care Team Description 08/04/2020 Hospital Encounter Department of [place] Tra nsplant Renal Laboratory Medicine STITCH BONDER MACHINE OPERATOR HELPER, C.N.P., (HCC) and Pathology, D.N.P. [facility] in [address] [place] [phone] [place] [address] [place], [place] (Work) [phone] Social History Tobacco Use Types Packs/Day Years [...] How often do you attend jainism or amish 1 to 4 times per [...] Nicholas APRN, C.N.P., D.N.P., M.S.N. [address] [place], [place] 55 [phone] (Nicolas wen) 07/31/2022 Lab Laboratory Medicine Tony Rubalcava M. B., Ch.BDavi, M.D. [address] [place], [place] [phone] (Wo rk) 07/31/2022 Lab Laboratory Medicine Tony Rubalcava M. B., Sydnie, Mukund [address] [place] [phone] (Wo rk) 07/31/2022 Office Visit Transplant Tony Rubalcava M.B., Mukund [place] [address] [place] [address] [phone] (Wo rk) 07/31/2022 Appointment Radiology Tony Rubalcava M.B., Mukund [place] [address] [place] [address] [phone] (Wo rk) 08/01/2022 Office Visit Transplant Tony Rubalcava M.B., Sydnie, Mukund [address] [place] [address] [phone] (Wo rk) 08/01/2022 Clinical Support Transplant Tony Rubalcava M.B., Sydnie, Mukund [address] [place] [address] [phone] (Wo rk) documented as of this encounter Procedures Procedure Name Priority Date/Time Associated Comments Diagnosis TACROLIMUS LEVEL, B Routine 09/27/2020 5:30 AM Transplant Jessica l Results for this TRAIN BRAKEMAN ([facility]) procedure are i n the results section. documented in this encounter Results Tacrolimus, B (09/27/2020 5:30 AM TRAIN BRAKEMAN) P athologist Signature Tacrolimus, B 9.4 5.0-15.0 09/29/2020 [facility] (Trough) 5:45 PM TRAIN BRAKEMAN ng/mL Comment: ----ADDITIONAL INFORMATION---- Target steady-state trough concentration s vary depending on the type of transplant, concomitant immunosuppressio n, clinical/institutional protocols, and time post-transplant. Results should be interpreted in conjunction with this clinical information and any physic al signs/symptoms of rejection/toxicity. Testing performed by Liquid Chromatograp hy-Tandem Mass Spectrometry (LC-MS/MS). This test was developed and its performa nce characteristics determined by [facility] in a manner consistent with CLIA requirements. This test has not been cleared or approved by the U.[place]. [place] d and Drug Administration. Specimen Anatomical Collection Method Collection Time Receive d Time (Source) Location / / Volume Laterality Blood (Blood, 09/27/2020 5:30 AM 09/29/19 21 1:02 Venous) TRAIN BRAKEMAN PM TRAIN BRAKEMAN Resulting Agency Comment Mailed In Specimen Alexa Adan APRN, C.N.P., D.N.P. LAB BLOOD NON ADD -ON Performing Organization Address City/State/ZIP Code Phon e Number [facility] [address] [place], [place] [address] SUPPORT [facility] [place] [address] Laboratory Medicine and Pathology [address] [place] documented in this encounter Visit Diagnoses Diagnosis Transplant Renal (HCC) documented in this encounter Additional Health Concerns Assessment Noted Time PHQ-9 Depression Total Score: 4 01/30/2019 12:13 PM CD T documented as of this encounter Care Teams Boats Renter Relationship Specialty Start Date End Date Elsewhere, Pcp PCP - General 09/17/19 documented as of this encounter
--- OUTSIDE RECORDS SUMMARY | 2022-05-25 13:13 | XMS_ITS | Encounter Summary ---
:1960 Author Organization [facility] Address [address] [place] [address] Care Team Providers Name Role Phone Elsewhere, Pcp Primary Care Provider Unavailable Encounter Details Date Type Department Care Team Description 09/10/2020 Hospital Encounter Department of Pompeian, Pretrans plant Recipient Evaluation Exam; Laboratory Medicine Angelina Belle, Chronic Kidney Disease and Pathology, CONTINUOUS IMPROVEMENT COACH, C.N.P., F[place], in M.S.N. [place], [address] [place], [place] [address] [facility] [address] [place], [place] [phone] [address] (Work) [phone] Social History Tobacco Use Types Packs/Day Years [...] How often do you attend shinto or nondenominational 1 to 4 times per [...] Nicholas APRN, C.N.P., D.N.P., M.S.N. [address] [place] [address] [phone] (Wo rk) 07/31/2022 Lab Laboratory Medicine Tony Rubalcava M. B., Ch.B., M.D. [address] [place] [address] [phone] (Wo rk) 07/31/2022 Lab Laboratory Medicine Tony Rubalcava M. B., Ch.B., Mukund [address] [place] [address] [phone] (Nicolas rk) 07/31/2022 Office Visit Transplant Tony Rubalcava M.B., Mukund [place] [address] [place] [address] [phone] (Nicolas rk) 07/31/2022 Appointment Radiology Tony Rubalcava M.B., Mukund [place] [address] [place] [address] [phone] (Nicolas wen) 08/01/2022 Office Visit Transplant Tony Rubalcava M.B., Sydnie, Mukund [address] [place] [address] [phone] (Nicolas wen) 08/01/2022 Clinical Support Transplant Tony Rubalcava M.B., Sydnie, Mukund [address] [place] [address] [phone] (Nicolas rk) documented as of this encounter Procedures Procedure Name Priority Date/Time Associated Diagnosis Comme nts HIV-1/-2 AG AND AB Routine 09/20/2020 5:30 AM Pretransplant Re sults for this SCREEN, PLASMA CANNON FIRE DIRECTION SPECIALIST Recipient Evaluation proce vanessa are in Exam the results Chronic Kidney Disease secti on. HLA CLASS II SAB Routine 09/20/2020 5:30 AM Pretransplant Resu lts for this ANTIBODY SCREEN CANNON FIRE DIRECTION SPECIALIST Recipient Evaluation proc edure are in Exam the results Chronic Kidney Disease secti on. HLA CLASS I SAB Routine 09/20/2020 5:30 AM Pretransplant Resul ts for this ANTIBODY SCREEN CANNON FIRE DIRECTION SPECIALIST Recipient Evaluation proc edure are in Exam the results Chronic Kidney Disease secti on. documented in this encounter Results HIV-1/-2 Ag and Ab Screen, Plasma (09/20/2020 5:30 AM CANNON FIRE DIRECTION SPECIALIST) P athologist Signature HIV-1/-2 Ag Negative Negative 09/21/2020 [facility] and Ab Screen, 9:45 PM CANNON FIRE DIRECTION SPECIALIST P Comment: Negative result does not rule out HIV in fection. If exposure to HIV infection occurred <14 d ays ago, contact the laboratory to request additi on of HIV-1 RNA detection / quantification test (HIV QN). Specimen Anatomical Collection Method Collection Time Receive d Time (Source) Location / / Volume Laterality Blood (Blood, 09/20/2020 5:30 AM 09/21/19 21 6:06 Venous) CANNON FIRE DIRECTION SPECIALIST PM CANNON FIRE DIRECTION SPECIALIST Resulting Agency Comment Mailed In Specimen Angelina Gaona APRN, C.N.P., M.S.N. LAB MICROBIOL OGY - BLOOD ORDERABLES Performing Organization Address City/State/ZIP Code Phon e Number [facility] [address] [place], [place] [address] SUPPORT CENTER [facility] [address] Laboratory Medicine and Pathology [address] [place] HLA Class II SAB Antibody Screen (09/20/2020 5:30 AM CANNON FIRE DIRECTION SPECIALIST) Patholo gist Method Time Signature Class II SAB Positive Not Applicable 09/23/2020 [facility] Overall 10:15 AM CANNON FIRE DIRECTION SPECIALIST Result Class II SAB 37 09/23/2020 [facility] cPRA 10:15 AM CANNON FIRE DIRECTION SPECIALIST Comment: ----ADDITIONAL INFORMATION---- This PRA is a [facility] calculated PRA. PRA is based on the antigen frequency of the Tissue Typing patient a nd donor population. ??PRA reflects all antibodie s with a normalized value (MFI) above 300. SAB DRB1 Specificity NONE 09/23/2020 10:15 AM CANNON FIRE DIRECTION SPECIALIST [facility] SAB [id number] Specificity NONE 09/23/2020 10:15 AM CANNON FIRE DIRECTION SPECIALIST [facility] SAB DQB1 Specificity see below 09/23/2020 10:15 AM CANNON FIRE DIRECTION SPECIALIST [facility] Comment: 2(A*05:01;B*02:01)[7253] Format: Serologic Eq.(DQA1;DQB1 Mol. All jorge)[Normalized MFI] NOTE: Data is displayed in descending or kristi by Mean Fluorescence Intensity (MFI). ??Serologic equivalents can be di splayed multiple times for different molecular alleles. SAB DPB1 Specificity NONE 09/23/2020 10:15 AM CANNON FIRE DIRECTION SPECIALIST [facility] Comment: ----ADDITIONAL INFORMATION---- Method: Luminex Flow Cytometry CLIA: [id number] ??CLIA Vault Service Mechanic: SHANTA LOYD MD,PhD Specimen Anatomical Collection Method Collection Time Receive d Time (Source) Location / / Volume Laterality Blood (Blood, 09/20/2020 5:30 AM 09/21/19 21 2:27 Venous) CANNON FIRE DIRECTION SPECIALIST PM CANNON FIRE DIRECTION SPECIALIST Resulting Agency Comment Mailed In Specimen Angelina Gaona APRN C.N.PDavi, M.S.N. LAB HLA ORDER JS Performing Organization Address City/State/ZIP Code Phon e Number [facility] - [address] [place], [place] [address] [facility] [place] [place] [place] [address] Laboratories-[facility] [address] HLA Class I SAB Antibody Screen (09/20/2020 5:30 AM CANNON FIRE DIRECTION SPECIALIST) [facility] Method Time Signature Class I SAB Positive Not Applicable 09/23/2020 [facility] Overall 9:49 AM CANNON FIRE DIRECTION SPECIALIST Result Class I SAB 13 09/23/2020 [facility] cPRA 9:49 AM CANNON FIRE DIRECTION SPECIALIST Comment: ----ADDITIONAL INFORMATION---- This PRA is a [facility] calculated PRA. PRA is based on the antigen frequency of the Tissue Typing patient a nd donor population. ??PRA reflects all antibodie s with a normalized value (MFI) above 300. SAB A Specificity see below 09/23/2020 9:49 AM CANNON FIRE DIRECTION SPECIALIST DBB8 Comment: 32(32:01)[1569], 25(25:01)[859], 23(23:0 1)[701], 24(24:03)[635], 24(24:02)[567], 31(31:01 )[500] Format: Serologic Eq.(A Mol. Allele)[Nor malized MFI] NOTE: Data is displayed in descending or kristi by Mean Fluorescence Intensity (MFI). ??Serologic equivalents can be di splayed multiple times for different molecular alleles. SAB B Specificity see below 09/23/2020 9:49 AM CANNON FIRE DIRECTION SPECIALIST DBB8 Comment: 51(51:01)[4261], 51(51:02)[2509], 49(49: 01)[2030], 78(78:01)[1620], 38(38:01)[1376], 63(15: 16)[1334], 75(15:02)[1305], 59(59:01)[1254], 77(15: 13)[1173], 52(52:01)[1159], 57(57:01)[1045], 57(57: 03)[888], 58(58:01)[857], 53(53:01)[855] Format: Serologic Eq.(B Mol. Allele)[Nor malized MFI] NOTE: Data is displayed in descending or kristi by Mean Fluorescence Intensity (MFI). ??Serologic equivalents can be di splayed multiple times for different molecular alleles. SAB C Specificity NONE 09/23/2020 9:49 AM CANNON FIRE DIRECTION SPECIALIST DBB8 Comment: ----ADDITIONAL INFORMATION---- Method: Luminex Flow Cytometry CLIA: [id number] ??CLIA Vault Service Mechanic: SHANTA LOYD MD,PhD Specimen Anatomical Collection Method Collection Time Receive d Time (Source) Location / / Volume Laterality Blood (Blood, 09/20/2020 5:30 AM 09/21/19 21 2:27 Venous) CANNON FIRE DIRECTION SPECIALIST PM CANNON FIRE DIRECTION SPECIALIST Resulting Agency Comment Mailed In Specimen Angelina Gaona APRN C.N.P., M.S.N. LAB HLA ORDER JS Performing Organization Address City/State/ZIP Code Phon e Number [facility] - [address] [place], [place] [address] [facility] [place] [place] [address] Laboratories-[facility] [address] documented in this encounter Visit Diagnoses Diagnosis Pretransplant Recipient Evaluation Exam Chronic Kidney Disease documented in this encounter Additional Health Concerns Assessment Noted Time PHQ-9 Depression Total Score: 4 01/30/2019 12:13 PM CD T documented as of this encounter Care Teams Pollution Control Technician Relationship Specialty Start Date End Date Elsewhere, Pcp PCP - General 09/17/19 documented as of this encounter
--- OUTSIDE RECORDS SUMMARY | 2022-05-25 13:13 | XMS_ITS | Encounter Summary ---
:1960 Author Organization [facility] Address [address] [place] [address] Care Team Providers Name Role Phone Elsewhere, Pcp Primary Care Provider Unavailable Encounter Details Date Type Department Care Team Description 10/12/2020 Lab Department of Laboratory Юлия Painter, Encounter For Screening Medicine and PathologyShashi. For Other Viral Diseases [place], in [address] [place] [address] (COVID-19) [place], [place] [address] [place] [phone] [place] [address] [phone] Social History Tobacco Use Types Packs/Day Years [...] How often do you attend christian or roman catholic 1 to 4 times [...] Nicholas APRN, C.N.P., D.N.P., M.S.N. [address] [place] [phone] (Nicolas wen) 07/31/2022 Lab Laboratory Medicine Tony Rubalcava M. B., ChDaviBDavi, M.Michelle. [address] [place] [phone] (Nicolas wen) 07/31/2022 Lab Laboratory Medicine Tony Rubalcava M. B., ChDaviBDavi, MElvia. [address] [place] [address] [phone] (Nicolas wen) 07/31/2022 Office Visit Transplant Tony Rubalcava M.B., ChBurke, MElvia. [address] [place] [phone] (Nicolas wen) 07/31/2022 Appointment Radiology Tony Rubalcava M.B., Mukund [place] [address] [place], [place] 55 [phone] (Wo rk) 08/01/2022 Office Visit Transplant Tony Rubalcava M.B., Mukund [place] [address] [place], [place] 55 [phone] (Wo rk) 08/01/2022 Clinical Support Transplant Tony Rubalcava M.B., Mukund [place] [address] [place], [place] 55 [phone] (Wo rk) documented as of this encounter Procedures Procedure Name Priority Date/Time Associated Diagnosis Comme nts SARS COV-2 RNA, Routine 10/12/2020 3:27 PM Encounter For Resul ts for this PCR, VARIES PROCUREMENT SERVICES MANAGER Screening For Other procedur e are in Viral Diseases the results (COVID-19) section. documented in this encounter Results SARS CoV-2 RNA, PCR, Varies Asymptomatic (10/12/2020 3:27 PM PROCUREMENT SERVICES MANAGER) [facility] Method Time Signature SARS CoV-2 Swab, 10/13/2020 DTL RNA, PCR, Nasopharynx 2:18 AM PROCUREMENT SERVICES MANAGER Source SARS CoV-2 Undetected Undetected 10/13/2020 DTL RNA, PCR 2:18 AM PROCUREMENT SERVICES MANAGER Comment: SARS-CoV-2 RNA absent. This result does not rule out COVID-19 in the patient, as the sensitivity of the test depends o n the timing of the specimen collection and quality of the specimen. Result should be correlated with patient's history and clinical presentat ion. ----ADDITIONAL INFORMATION---- This test has received Emergency Use Aut horization (EUA) by the U.S. Food and Drug Administration an d is used per american history teacher's instructions. Performance characteristics were verified by [facility] in a manner consistent with CLIA requirements. Visit the CDC website: https://www.cdc.g ov/coronavirus/ for the most recent guidelines on Coron avirus testing. Fact Sheet for Healthcare Providers: https://www.fda.gov/media/609805/downloa d Fact Sheet for Patients: https://www.fda.gov/media/098815/downloa d Specimen Anatomical Collection Method Collection Time Receive d Time (Source) Location / / Volume Laterality Varies 10/12/2020 3:27 PM 4:19 (Nasopharynx) PROCUREMENT SERVICES MANAGER PM PROCUREMENT SERVICES MANAGER Юлия Painter M.D. LAB MICROBIOLOGY - GENERAL O RDERABLES Performing Organization Address City/State/[facility] Code Phon e Number [facility] - [address] [place], [place] [address] [facility] [place] [place] [address] Laboratories-[facility] [address] documented in this encounter Visit Diagnoses Diagnosis Encounter For Screening For Other Viral Diseases (COVID-19) documented in this encounter Additional Health Concerns Infection Onset Date Last Indicated Resolved Time COVID19 Pending 10/12/2020 10/12/2020 10/13/2020 2:18 AM PROCUREMENT SERVICES MANAGER Assessment Noted Time PHQ-9 Depression Total Score: 4 01/30/2019 12:13 PM CD T documented as of this encounter Care Teams Glove Former Relationship Specialty Start Date End Date Elsewhere, Pcp PCP - General 09/17/19 documented as of this encounter
--- OUTSIDE RECORDS SUMMARY | 2022-05-25 13:13 | XMS_ITS | Encounter Summary ---
:1960 Author Organization [facility] Address [address] [place] [address] Care Team Providers Name Role Phone Elsewhere, Pcp Primary Care Provider Unavailable Reason for Visit Reason Comments Med Refill Encounter Details Date Type Department Care Team Description 08/30/2020 Refill [facility] Silvia Formerly named [facility] for Tony Rubalcava, Med Refill Transplantation and Clinical M.B ., Ch.B., M.D. Regeneration in [place], [address] [place], [place] [address] [facility] [address] [place] [address] [phone] Social History Tobacco Use Types Packs/Day Years [...] Nicholas APRN, C.N.P., D.N.P., M.S.N. [address] [place] [phone] (Nicolas wen) 07/31/2022 Lab Laboratory Medicine Tony Rubalcava M. B., ChBurke, MElvia. [address] [place] [phone] (Nicolas wen) 07/31/2022 Lab Laboratory Medicine Tony Rubalcava M. B., ChDaviBDavi, MElvia. [address] [place] [phone] (Nicolas wen) 07/31/2022 Office Visit Transplant Tony Rubalcava M.B., ChBurke, MElvia. [address] [place] [address] [phone] (Nicolas wen) 07/31/2022 Appointment Radiology Tony Rubalcava M.B., Mukund [place] [address] [place], [place] [phone] (Wo rk) 08/01/2022 Office Visit Transplant Tony Rubalcava M.B., Mukund [place] [address] [place] [address] [phone] (Wo rk) 08/01/2022 Clinical Support Transplant Tony Rubalcava M.B., Sydnie, Mukund [address] [place] [address] [phone] (Wo rk) documented as of this encounter Visit Diagnoses Diagnosis Transplant Renal (HCC) documented in this encounter Additional Health Concerns Assessment Noted Time PHQ-9 Depression Total Score: 4 01/30/2019 12:13 PM CD T documented as of this encounter Care Teams Roastmaster Relationship Specialty Start Date End Date Elsewhere, Pcp PCP - General 09/17/19 documented as of this encounter
--- OUTSIDE RECORDS SUMMARY | 2022-05-25 13:13 | XMS_ITS | Encounter Summary ---
:1960 Author Organization [facility] Address [address] [place] [address] Care Team Providers Name Role Phone Elsewhere, Pcp Primary Care Provider Unavailable Encounter Details Date Type Department Care Team Description 10/14/2020 Hospital Encounter [facility] [place] [address] [facility] 200 [place] [address] [phone] (Wo rk) Social History Tobacco Use Types [...] How often do you attend temple or quaker 1 to 4 times per [...] Sign Reading Time Taken Comments Blood Pressure 194/94 10/14/2020 11:30 AM PROCESS SPECIALIST Pulse 63 10/14/2020 11:40 AM PROCESS SPECIALIST Temperature 36.5 ??C (97.7 ??F) 10/14/2020 11:30 AM PROCESS SPECIALIST Respiratory Rate 16 10/14/2020 11:40 AM PROCESS SPECIALIST Oxygen Saturation 93% 10/14/2020 11:40 AM PROCESS SPECIALIST Inhaled Oxygen Concentration - - Weight 97 kg (213 lb 13.5 oz) 10/14/2020 8:11 AM PROCESS SPECIALIST Height 165.1 cm (5' 5) 10/14/2020 8:11 AM PROCESS SPECIALIST Body Mass Index 35.59 10/14/2020 8:11 AM PROCESS SPECIALIST documented in this encounter Discharge Instructions Discharge [...] stimulation or have issues with the device ESS SPECIALIST documented in this encounter Medications at Time [...] Generator (EPG) and the hand held patient engineering programmer. Specimens None Drains Ureteral Drain/Stent Right (Active) 09/16/19 1700 Right Placed by External Staff?: Placed by: Location: Other (Comment) Tube Size (Fr.): Urine Returned: Removal Reason: Dressing Status No dressing 01/22/20 1735 Estimated Blood Loss 0 mL Implants Implant Name Type Inv. Item Serial No. Substation Maintenance Technician Lot No. LRB No. Used Action Sprint endura PNS system Stimulator Other Unknown [id number] Right 1 Implanted Intra-op Medications None Francesca Santana M.D. ESS SPECIALIST documented in this encounter Plan of Treatment Upcoming Encounters Date Type Specialty Care Team Description 06/01/2022 Telemedicine Pharmacy An Nicholas APRN, C.N.P., D.N.P., M.S.N. [address] [place] [address] [phone] (Wo rk) 07/31/2022 Lab Laboratory Medicine Tony Rubalcava M. B., Mukund [place] 200 [place], [place] [phone] (Wo rk) 07/31/2022 Lab Laboratory Medicine Tony Rubalcava M. B., ChMukund Turk [address] [place] [phone] (Wo rk) 07/31/2022 Office Visit Transplant Tony Rubalcava M.B., Sydnie, Mukund [address] [place] [phone] (Wo rk) 07/31/2022 Appointment Radiology Tony Rubalcava M.B., Mukund [place] [address] [place] [address] [phone] (Wo rk) 08/01/2022 Office Visit Transplant Tony Rubalcava M.B., Mukund [place] [address] [place] [address] [phone] (Wo rk) 08/01/2022 Clinical Support Transplant Tony Rubalcava M.B., Sydnie, Mukund [address] [place] [address] [phone] (Wo rk) Pending Results Name Type Priority Associated Date/Time Diagnoses PM US Intraoperative Procedural Imaging Routine 0 10/14/2020 11:09 AM PROCESS SPECIALIST documented as of this encounter Procedures Procedure Name Priority Date/Time Associated Diagnosis Comme nts INSERTION NEUROSTIMULATOR 10/14/2020 9:40 AM right uln er ELECTRODE PERIPHERAL PROCESS SPECIALIST intractable pain. documented in this encounter Visit Diagnoses Not on filedocumented in this encounter Administered Medications Inactive Administered Medications - up to 3 most recent administrations Medication Order MAR Action Action Date Dose Rate Site acetaminophen tablet 1,000 mg Given 10/14/2020 9:03 AM PROCESS SPECIALIST 1,000 mg (TYLENOL) 1,000 mg, oral, Once, On Elizabeth 10/14/20 at 0845, For 1 dose, Pre-Op metoprolol tablet 12.5 mg (LOPRESSOR) 12.5 mg, [...] 0.9% infusion New Bag 10/14/2020 10:00 AM PROCESS SPECIALIST 20 mL/hr, intravenous, Continuous, Starting on Elizabeth [...] Recently Administered Medications Times are shown in PROCESS SPECIALIST. Scheduled Medication Order 10/12/2020 10/13/2020 10/14/2020 acetaminophen tablet 1,000 mg (TYLENOL) (COMPLETED) 0903 (Given - Provider: Vida Hernandez R.N.) 1,000 mg, oral, Once, On Elizabeth 10/14/20 at 0845, For 1 dose, Pre-Op [id number] 0.25%- 0.5%-1:200,000 injection 100 mL (COMPLETED) 0830 [...] For 1 dose, Pre-Op, For IV Placement, Laborer/Key Man, PreOp sodium chloride 0.9 % injection 3 [...] documented as of this encounter Care Teams Vision Specialist Relationship Specialty Start Date End Date Elsewhere, Pcp PCP - General 09/17/19 documented as of this encounter
--- OUTSIDE RECORDS SUMMARY | 2022-05-25 13:13 | XMS_ITS | Encounter Summary ---
:1960 Author Organization [facility] Address [address] [place] [address] Care Team Providers Name Role Phone Elsewhere, Pcp Primary Care Provider Unavailable Encounter Details Date Type Department Care Team Description 08/13/2020 Orders Only Division of Nephrology and [place], Josué Quiles PRN, Hypertension, Evangelical C.N.P. [place], in [place], [address] [place] [address] [place] [phone] [place] [address] [phone] Social History Tobacco Use Types Packs/Day Years [...] often do you attend jehovah's witness or samaritan 1 to 4 times per [...] An Nicholas APRN C.N.P., D.N.P., M.S.N. [address] [place] [address] [phone] (Nicolas rk) 07/31/2022 Lab Laboratory Medicine Tony Rubalcava M. B., ChBurke, MDebra [address] [place] [address] [phone] (Wo rk) 07/31/2022 Lab Laboratory Medicine Tony Rubalcava M. B., ChBurke, MDebra [address] [place] [address] [phone] (Wo rk) 07/31/2022 Office Visit Transplant Tony Rubalcava M.B., Sydnie, MDebra [address] [place] [address] [phone] (Wo rk) 07/31/2022 Appointment Radiology Tony Rubalcava M.B., Mukund O[place] [address] [place] [address] [phone] (Wo rk) 08/01/2022 Office Visit Transplant Tony Rubalcava M.B., Mukund [place] [address] [place] [address] [phone] (Wo rk) 08/01/2022 Clinical Support Transplant Tony Rubalcava M.B., Sydnie, Mukund [address] [place] [address] [phone] (Wo behzad) documented as of this encounter Visit Diagnoses Not on filedocumented in this encounter Additional Health Concerns Assessment Noted Time PHQ-9 Depression Total Score: 4 01/30/2019 12:13 PM CD T documented as of this encounter Care Teams Cutting Pressman Relationship Specialty Start Date End Date Elsewhere, Pcp PCP - General 09/17/19 documented as of this encounter
--- OUTSIDE RECORDS SUMMARY | 2022-05-25 13:14 | XMS_ITS | Encounter Summary ---
:1960 Author Organization [facility] Address [address] [place] [address] Care Team Providers Name Role Phone Elsewhere, Pcp Primary Care Provider Unavailable Reason for Visit Reason Comments Med Refill Encounter Details Date Type Department Care Team Description 03/02/2020 Refill Division of Nephrology and [place], Neymar Yap Jr., Med Refill Hypertension in [facility] [address] [facility] [[email or web address]] [address] [place] [address] [place] [address] [phone] Social History Tobacco Use Types Packs/Day Years [...] How often do you attend faith or hoahaoism 1 to 4 times per [...] Nicholas APRN, C.N.P., D.N.P., M.S.N. [address] [place] [address] 55 [phone] (Nicolas wen) 07/31/2022 Lab Laboratory Medicine Tony Rubalcava M. B., ChDaviBDavi, M.D. [address] [place] [address] 55 [phone] (Nicolas wen) 07/31/2022 Lab Laboratory Medicine Tony Rubalcava M. B., ChDaviBDavi, M.D. [address] [place] [address] 55 [phone] (Nicolas wen) 07/31/2022 Office Visit Transplant Tony Rubalcava M.B., ChDaviBDavi, M.D. [address] [place] [address] 55 [phone] (Nicolas wen) 07/31/2022 Appointment Radiology Tony Rubalcava M.B., Ch.BDavi, Mukund [address] [place] [address] 55 [phone] (Wo behzad) 08/01/2022 Office Visit Transplant Tony Rubalcava M.B., Mukund [place] [address] [place] [address] [phone] (Wo behzad) 08/01/2022 Clinical Support Transplant Tony Rubalcava M.B., Sydnie, Mukund [address] [place] [address] 55 [phone] (Nicolas wen) documented as of this encounter Visit Diagnoses Not on filedocumented in this encounter Additional Health Concerns Assessment Noted Time PHQ-9 Depression Total Score: 4 01/30/2019 12:13 PM CD T documented as of this encounter Care Teams Air Conditioning Supervisor Relationship Specialty Start Date End Date Elsewhere, Pcp PCP - General 09/17/19 documented as of this encounter
--- OUTSIDE RECORDS SUMMARY | 2022-05-25 13:14 | XMS_ITS | Encounter Summary ---
:1960 Author Organization [facility] Address [address] [place] [address] Care Team Providers Name Role Phone Elsewhere, Pcp Primary Care Provider Unavailable Reason for Referral Outpatient (Routine) - Closed Specialty Diagnoses / Procedures Referred By Contact Refer red To Contact Pain Medicine Diagnoses Complication Kidney Transplant (HCC) Complication Dialysis Fistula Subsequent Pain Neuropathic Steve Martínez Jr. [facility] D.ODavi [address] [place] [address] Referral ID Status Reason Start Date Expiration Date Visits Requ ested Visits Authorized [id number] Closed 04/05/2020 04/05/2021 1 1 Scheduling Instructions She is on HD MWF first shift at [facility] Encounter Details Date Type Department Care Team Description 04/05/2020 Orders Only Division of Nephrology Steve Martínez omplication Kidney Transplant (HCC) (Primary Dx); and Hypertension in [place] Garcia D.O. Complication Dialysis Fistula Subsequent ; [place], [place] [address] [facility] Pain Neuropathic [address] [place] [phone] Social History Tobacco Use Types Packs/Day Years [...] 12/23/2021 relatives? How often do you attend sikh or mu-ism 1 to 4 times per year 12/23/2021 services? Do you belong to any clubs or organizations such No 12/23/2021 as sikh groups, unions, fraternal or athletic groups, or [...] Nicholas APRN, C.N.P., D.N.P., M.S.N. [address] [place] [address] [phone] (Wo rk) 07/31/2022 Lab Laboratory Medicine Tony Rubalcava M. B., Ch.BDavi, M.D. [address] [place] [address] [phone] (Wo rk) 07/31/2022 Lab Laboratory Medicine Tony Rubalcava M. B., Sydnie, Mukund [address] [place] [address] [phone] (Wo rk) 07/31/2022 Office Visit Transplant Tony Rubalcava M.B., Sydnie, Mukund [address] [place] [address] [phone] (Wo rk) 07/31/2022 Appointment Radiology Tony Rubalcava M.B., Sydnie, Mukund [address] [place] [address] [phone] (Wo rk) 08/01/2022 Office Visit Transplant Tony Rubalcava M.B., Sydnie, Mukund [address] [place] [address] [phone] (Wo rk) 08/01/2022 Clinical Support Transplant Tony Rubalcava M.B., Sydnie, MDebra [address] [place] [address] [phone] (Wo rk) Scheduled Referrals Name Type Priority Associated Diagnoses [facility] - Outpatient Referral Routine Complication Kidne y Expected: Peripheral Nerve Transplant (HCC ) 04/05/2020 Stimulation Consult Complication Dialysis (Approximate), (Clinic) Fistula Subseque nt Expires: Pain Neuropathic 04/05/2023 documented as of this encounter Visit Diagnoses Diagnosis Complication Kidney Transplant (HCC) - P rimary Complication Dialysis Fistula Subsequent Pain Neuropathic documented in this encounter Additional Health Concerns Assessment Noted Time PHQ-9 Depression Total Score: 4 01/30/2019 12:13 PM CD T documented as of this encounter Care Teams Paper Control Clerk Relationship Specialty Start Date End Date Elsewhere, Pcp PCP - General 09/17/19 documented as of this encounter
--- OUTSIDE RECORDS SUMMARY | 2022-05-25 13:14 | XMS_ITS | Encounter Summary ---
:[address] [facility] Address [address] [place] [address] Care Team Providers Name Role Phone Elsewhere, Pcp Primary Care Provider Unavailable Reason for Visit Outpatient (Routine) - Closed Specialty Diagnoses / Procedures Referred By Contact Refer red To Contact Pain Medicine Diagnoses Complication Kidney Transplant (HCC) Complication Dialysis Fistula Subsequent Pain Neuropathic Steve Mart[facility] Jr.[facility] D.O [address] [place] [address] Referral ID Status Reason Start Date Expiration Date Visits Requ ested Visits Authorized [id number] Closed 04/05/2020 04/05/2021 1 1 Encounter Details Date Type Department Care Team Description 05/31/2020 Virtual Visit Division of Pain Юлия Painter cation Kidney Transplant (HCC); Denise Mascorro M.D. Complication Dialysis Fistula Subsequent ; [place], [place] [address] [facility] Pain Neuropathic [address] [place] [phone] Social History Tobacco Use Types Packs/Day Years [...] 12/23/2021 relatives? How often do you attend taoism or yarsanism 1 to 4 times per year 12/23/2021 services? Do you belong to any clubs or organizations such No 12/23/2021 as taoism groups, unions, fraternal or athletic groups, or [...] documented as of this encounter Consult Notes Юлия Painter M.D. - 05/31/2020 8:00 AM CDT Pain Medicine Consultation Note- this was a telephone encounter. The patient was un able to successfully connect to a video consultation encounter. This consultation occurred during the COVID-19 pandemic. Referring Provider: Steve Martínez Jr., * Chief Complaint / Reason For Visit Shabnam Wray is a 59 y.o. female who is being evaluated in the Pain Clinic for: 1. Complication Kidney Transplant (HCC) 2. Complication Dialysis Fistula Subsequent 3. Pain Neuropathic . History Of Present Illness Shabnam Wray is a 59 y.o. female with complex past medical history including end-stage renal disease on hemodialysis Sunday. She had an AV fistula graft placed in her right upperextremity in April of 2019. This has been working well for her dialysis. However she experiencessevere neuropathic shooting pain at times when the dialysis team is attempting access her fistula. The pain is so severe at needle insertion that at times it needs to be removed and re-attempted. This creates a difficult scenario for the dialysis team to find appropriate cannulation space. The patient does not have any neuropathic pain in the distribution aside from her dialysis. The patient is maintained on aspirin and warfarin therapy. Impression/Report/Plan #1 Complication Kidney Transplant (HCC) #2 Complication Dialysis Fistula Subsequent #3 Pain Neuropathic #4 Chronic Kidney Disease NOS This is a complex scenario given the patient's intermittent episodic access to her AV fistula site for dialysis. For this reason I do not recommend any neuropathic agents. Given that this was a virtual telephone consultation I recommend seeing the patient in the ultrasound clinic- I can scan the upper extremity and attempt to determine the sensory distribution that is contributing to her neuropathic pain- axillary lateral cutaneous, potentially. Dependent on the location of this nerve relative to her AV fistula site it may or may not be amenable to a diagnostic block. I discussed with the patient we would put local anesthetic in the nerve injection. We will attempt to do this in the late afternoon slot on June 08. She will then go to dialysis the next morning at 5:15 a.m. as per her normal routine. She will have nursing Education regarding the peripheral nerve stimulator should we be able to find an appropriate target for the nerve block. The patient is on warfarin therapy though Dr. Martínez stated in his note that this could be held for a potential procedure. It does not need to be held for the diagnostic nerve block. A peripheral nerve stimulator may be an option if she responds well to the diagnostic nerve block. Of course the main concern would be migration of the lead, bleeding and potential for infection given in externalized lead. This will all be discussed in depth prior to pursuing a peripheral nerve stimulator. I will plan to see the patient on June 08. Thank for the consultation Education Ready to learn, no apparent learning barriers were identified; learning preferences include listening. Explained diagnosis and treatment plan; patient expressed understanding of the content. documented in this encounter Plan of Treatment Upcoming Encounters Date Type Specialty Care Team Description 06/01/2022 Telemedicine Pharmacy An Nicholas APRN, C.N.P., WhitneyNDaviP., M.S.N. [address] [place] [address] [phone] (Wo rk) 07/31/2022 Lab Laboratory Medicine Tony Rubalcava M. B., Sydnie, Mukund [address] [place] [address] [phone] (Wo rk) 07/31/2022 Lab Laboratory Medicine Tony Rubalcava M. B., Sydnie, Mukund [address] [place] [address] [phone] (Wo rk) 07/31/2022 Office Visit Transplant Tony Rubalcava M.B., Sydnie, Mukund [address] [place] [address] [phone] (Wo rk) 07/31/2022 Appointment Radiology Tony Rubalcava M.B., Sydnie, Mukund [address] [place] [address] [phone] (Wo rk) 08/01/2022 Office Visit Transplant Tony Rubalcava M.B., Sydnie, Mukund [address] [place] [address] [phone] (Wo rk) 08/01/2022 Clinical Support Transplant Tony Rubalcava M.B., Sydnie, Mukund [address] [place] [address] [phone] (Wo rk) documented as of this encounter Visit Diagnoses Diagnosis Complication Kidney Transplant (HCC) Complication Dialysis Fistula Subsequent Pain Neuropathic documented in this encounter Additional Health Concerns Assessment Noted Time PHQ-9 Depression Total Score: 4 01/30/2019 12:13 PM CD T documented as of this encounter Care Teams Lobster Fisherman Relationship Specialty Start Date End Date Elsewhere, Pcp PCP - General 09/17/19 documented as of this encounter
--- OUTSIDE RECORDS SUMMARY | 2022-05-25 13:14 | XMS_ITS | Encounter Summary ---
:1960 Author Organization [facility] Address [address] [place] [address] Care Team Providers Name Role Phone Elsewhere, Pcp Primary Care Provider Unavailable Encounter Details Date Type Department Care Team Description 01/22/2020 Surgery RST ROMB MAIN OR Beck Galarza, EXCHANGE URETERAL [address] [place] [address] M.D. STENT, allograft [place], [place] [address] [place] [address] kidney. [address] [place], [place] [phone] (Wo rk) Social History Tobacco Use Types [...] How often do you attend mandaen or hindu 1 to 4 times per [...] 3 in am 2 in PM mycophenolate Take 1 capsule (250 180 capsule 3 03/14/2019 0 03/05/2020 (CELLCEPT) 250 mg mg total) by mouth 2 capsule (two) times a day. Do not break, cut, or open capsules. predniSONE (DELTASONE) TAKE 1 TABLET(5 MG) 90 tablet 0 10/1802/16/2020 5 mg tablet BY MOUTH DAILY rosuvastatin (CRESTOR) TAKE 1 TABLET BY 90 tablet 3 020 01/13/2021 5 mg tablet MOUTH DAILY. sevelamer (RENVELA) 800 Take 800 mg by mouth 0 01/26/2020 mg tablet daily with breakfast. Take with largest meal of the day tacrolimus (PROGRAF) 1 Take 3 capsules (3 450 capsule 3 11/1902/26/2020 mg capsule mg total) by mouth every morning AND 2 capsules (2 mg total) every evening. warfarin (COUMADIN) 2.5 On 09/19, take 5 mg 75 tablet 08/2202/16/2020 mg tablet daily then check INR 2/3 cefdinir (OMNICEF) 300 Take 1 capsule (300 14 capsule 0 08/201901/26/2020 mg capsule mg total) by mouth every 12 (twelve) hours for 7 days. acetaminophen (TYLENOL) Take 2 tablets 0 05/12/20 [...] (DIALYVITE) mouth every evening. 100-1 mg tablet warfarin (COUMADIN) 1 Take as directed per 100 tablet 07/2002/16/2020 mg tablet After Visit Summary. documented as of this encounter OR Notes Op Note - Efren Jones M.D. - 01/22/2020 4:37 PM CDT FULL OP NOTE Procedure(s) (LRB): EXCHANGE URETERAL STENT, allograft kidney. (Right) Surgeon(s) and Role: * Beck Galarza M.D. - Primary * Vicente Robledo M.D. - Medicare Insurance Specialist * Efren Jones M.D. - Medicare Insurance Specialist * Jakub Ray M.D., Ph.D. * Renato Marsh M.D. Anesthesia Type General Pre-operative Diagnosis Obstruction Ureter Post-operative Diagnosis Obstruction Ureter Findings See Below Complications None Description of Procedure FINDINGS AT THE TIME OF THE PROCEDURE 1. Cystoscopy was unremarkable. Bladder appeared unremarkable. There were no stones, trabeculations,diverticula. 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 2. A stent was noted to be emanating from the allograft kidney ureteral orifice and had no incrustation. 3. Uncomplicated exchange of an 8 Fr x 20 cm stent NARRATIVE OF EVENTS After appropriate patient identification and verification of informed consent, the patient was brought into the OR and placed under general anesthesia. The patient was then prepped and draped in the standard sterile fashion in the dorsal lithotomy position. After surgical pause and confirmation of antibiotic administration, we proceeded with a cystoscopy. The bladder was systematically examined with no tumors or lesions concerning for malignancy. A stent was noted to be emanating from the allograft kidney ureteral orifice on the right superior portion of the bladder with no encrustation. A 0.035 sensor tip wire was placed alongside the stent and confirmed to be in appropriate position by fluoroscopy. Using stent graspers the distal end of the stent was grasped and brought out through the urethralmeatus and removed. A new 8 Fr x 20 cm stent was placed over the wire and threaded up to the renal collecting system. The 0.035 sensor wire was then pulled back with appropriate curl demonstrated allograft kidney renal pelvis. Appropriate curls were demonstrated in the bladder and renal pelvis into the case with fluoroscopy. The bladder was drained at the conclusion of procedure. The patient was awoken from anesthesia and transferred to the recovery room in stable condition. Specimens None Drains Ureteral Drain/Stent Right (Active) 09/16/19 1700 Right Placed by External Staff?: Placed by: Location: Other (Comment) Tube Size (Fr.): Urine Returned: Removal Reason: None Estimated Blood Loss None Implants Implant Name Type Inv. Item Serial No. Apparel Merchandiser Lot No. LRB No. Used Action STNT URET INL [id number] - [id number] - [id number] Ureteral Stent STNT URET INL [id number] [employer] [id number] Right 1 Implanted Efren Jones M.D. documented in this encounter Plan of Treatment Upcoming Encounters Date Type Specialty Care Team Description 06/01/2022 Telemedicine Pharmacy An Nicholas APRN, C.N.P., D.N.P., M.S.N. [address] [place] [address] [phone] (Wo rk) 07/31/2022 Lab Laboratory Medicine Tony Rubalcava M. B., Sydnie, MDebra [address] [place] [address] [phone] (Wo rk) 07/31/2022 Lab Laboratory Medicine Tony Rubalcava M. B., Sydnie, Mukund [address] [place] [address] [phone] (Wo rk) 07/31/2022 Office Visit Transplant Tony Rubalcava M.B., Sydnie, Mukund [address] [place] [address] [phone] (Wo rk) 07/31/2022 Appointment Radiology Tony Rubalcava M.B., Sydnie, MDebra [address] [place] [address] [phone] (Wo rk) 08/01/2022 Office Visit Transplant Tony Rubalcava M.B., Sydnie, MDebra [address] [place] [address] [phone] (Wo rk) 08/01/2022 Clinical Support Transplant Tony Rubalcava M.B., Sydnie, MDebra [address] [place] [address] [phone] (Wo rk) documented as of this encounter Procedures Procedure Name Priority Date/Time Associated Comments Diagnosis FL FLUORO LESS RAD - Routine 01/22/2020 5:11 Results f or this THAN 1 HOUR (most inpatients PM CDT procedure a re in and all the results outpatients) section. EXCHANGE URETERAL 01/22/2020 3:57 Obstruction Ureter STENT PM CDT Case Notes SHEETER OPERATOR 858 PH BLOOD GAS STAT 01/22/2020 2:53 PM CDT Resul ts for this procedure are in the resu lts section. SODIUM, B STAT 01/22/2020 2:53 PM CDT Resul ts for this procedure are in the resu lts section. POTASSIUM, B STAT 01/22/2020 2:53 PM CDT Resul ts for this procedure are in the resu lts section. GLUCOSE, WHOLE BLOOD STAT 01/22/2020 2:53 PM CDT Results for this procedure are in the resu lts section. CBC WITHOUT DIFFERENTIAL, B STAT 01/22/2020 2:53 PM CDT Results for this procedure are in the resu lts section. CALCIUM, IONIZED, S/B STAT 01/22/2020 2:53 PM CDT Results for this procedure are in the resu lts section. ECG STAT 01/22/2020 2:25 PM CDT Resul ts for this procedure are in the resu lts section. documented in this encounter Results FL Fluoro Less Than 1 Hour (01/22/2020 5:11 PM CDT) Specimen (Source) Anatomical Location Collection Method / Collectio n Time Received Time / Laterality Volume Narrative 152 HOS LOS RST - 01/22/2020 5:13 PM CDT This exam does not require a radiologist review or interpretation. Please refer to the patient's medical record on this date for clinical details. Idalia Bonds M.D. IMG FLUOROSCOPY PROCEDURES Performing Organization Address [facility] Code Phon e Number 152 HOS LOS RST pH (01/22/2020 2:53 PM CDT) P athologist Signature pH 7.42 7.35 - 7.45 01/22/2020 3:06 STMA pH PM CDT Specimen Anatomical Collection Method Collection Time Receive d Time (Source) Location / / Volume Laterality Blood 01/22/2020 2:53 PM 0 3:01 CDT PM CDT Zaida Springer M.D. LAB HISTORICAL ORDERS Performing Organization Address City/[facility]/ZIP Code Phon e Number [facility] - [address] [place], [place] [address] [facility] [place] [address] [facility] [address] Glucose, Whole Blood (01/22/2020 2:53 PM CDT) athologist Signature Glucose 85 70 - 140 01/22/2020 3:06 STMA mg/dL PM CDT Specimen Anatomical Collection Method Collection Time Receive d Time (Source) Location / / Volume Laterality Blood (Blood, 01/22/2020 2:53 PM 01/22/20 3:01 Venous) CDT PM CDT Zaida Springer M.D. LAB BLOOD TROPONIN Performing Organization Address City/State/ZIP Code Phon e Number [facility] - [address] [place], [place] [address] [place] [address] [facility] [place] [address] Potassium, Blood (01/22/2020 2:53 PM CDT) athologist Signature Potassium, B 3.8 3.6 - 5.2 01/22/2020 [facility] mmol/L 3:06 PM CDT Specimen Anatomical Collection Method Collection Time Receive d Time (Source) Location / / Volume Laterality Blood (Blood, 01/22/2020 2:53 PM 01/22/20 3:01 Venous) CDT PM CDT Zaida Springer M.D. LAB BLOOD NON ADD-ON Performing Organization Address City/State/ZIP Code Phon e Number [facility] - [address] [place], [place] [address] [place] [address] [facility] [address] Sodium, B (01/22/2020 2:53 PM CDT) athologist Signature Sodium, B 138 135 - 145 01/22/2020 3:06 STMA mmol/L PM CDT Specimen Anatomical Collection Method Collection Time Receive d Time (Source) Location / / Volume Laterality Blood (Blood, 01/22/2020 2:53 PM 01/22/20 3:01 Venous) CDT PM CDT Zaida Springer M.D. LAB BLOOD NON ADD-ON Performing Organization Address City/State/ZIP Code Phon e Number [facility] - [address] [place], [place] [address] [facility] [place] [address] [facility] [address] Calcium, Ionized (01/22/2020 2:53 PM CDT) athologist Signature Calcium, 5.12 4.65 - 5.30 01/22/2020 [facility] Ion[facility], B mg/dL 3:06 PM CDT Specimen Anatomical Collection Method Collection Time Receive d Time (Source) Location / / Volume Laterality Blood (Blood, 01/22/2020 2:53 PM 01/22/20 20 3:01 Venous) CDT PM CDT Zaida Springer M.D. LAB BLOOD NON ADD-ON Performing Organization Address City/[facility] Phon e Number [facility] - [address] [place], [place] [address] [place] [address] [place] [address] [address] [facility] CBC without Differential (01/22/2020 2:53 PM CDT) athologist Signature Hemoglobin 12.5 11.6 - 01/22/2020 [facility] 15.0 g/dL 3:04 PM CDT Hematocrit 39.0 35.5 - 01/22/2020 [facility] 44.9 % 3:04 PM CDT Erythrocytes 4.20 3.92 - 01/22/2020 [facility] 5.13 3:04 PM CDT x10(12)/L MCV 92.9 78.2 - 01/22/2020 [facility] 97.9 fL 3:04 PM CDT RBC Distrib Width 14.1 12.2 - 01/22/2020 [facility] 16.1 % 3:04 PM CDT Platelet Count 165 157 - 371 01/22/2020 [facility] x10(9)/L 3:04 PM CDT Leukocytes 8.8 3.4 - 9.6 01/22/2020 [facility] x10(9)/L 3:04 PM CDT Specimen Anatomical Collection Method Collection Time Receive d Time (Source) Location / / Volume Laterality Blood (Blood, 01/22/2020 2:53 PM 01/22/20 20 3:01 Venous) CDT PM CDT Zaida Springer M.D. LAB BLOOD ADD-ON Performing Organization Address City/[facility] Phon e Number [facility] - [address] [place], [place] [address] [facility] [place] [address] ECG 12 Lead (01/22/2020 2:25 PM CDT) P athologist Signature Ventricular Rate 66 BPM MUSE ECG/Min NM Interval 194 ms MUSE QRSD Interval 92 ms MUSE QT Interval 428 ms MUSE QTC Interval 448 ms MUSE P [place] 39 degrees MUSE R [place] -25 degrees MUSE T Wave [place] -5 degrees MUSE Specimen Anatomical Collection Method Collection Time Receive d Time (Source) Location / / Volume Laterality 01/22/2020 2:25 PM 0 2:54 CDT PM CDT Impressions MUSE - 01/22/2020 2:54 PM CDT Normal sinus rhythm Cannot rule out Anteroseptal infarct When compared with ECG of 11-FEB-2019 20 :19, No significant change was found Reviewed by REI Muhammad Narrative This result has an attachment that is no t available. Procedure Note Scott Alamo Jr., M.D. - 01/22/2020For matting of this note might be different from the original. IMPRESSION: Normal sinus rhythm Cannot rule out Anteroseptal infarct When compared with ECG of 11-FEB-2019 20 :19, No significant change was found Reviewed by REI Muhammad Idalia Bonds M.D. ECG ORDERABLES Performing Organization Address City/State/ZIP Code Phon e Number MUSE MUSE NA documented in this encounter Visit Diagnoses Diagnosis Obstruction Ureter - Primary Obstruction Ureter documented in this encounter Admitting Diagnoses Diagnosis Obstruction Ureter documented in this encounter Administered Medications Inactive Administered Medications - up to 3 most recent administrations Medication Order MAR Action Action Date Dose Rate Site metoprolol tablet 12.5 mg (LOPRESSOR) 12.5 mg, oral, Once as needed, if patien t did not take their last scheduled dose of beta leana prior to arrival, Starting on Elizabeth 01/22/20 at 1411, For 1 dose, Pre-Op, Do not give [...] needed, line care , Starting on Elizabeth 6/4/20 at 1411, Pre-Op, Peripheral Intravenous Catheter and Rapid Infusion Cat heter, prior to blood sampling, post blood transfusion or post blood samplin g sodium chloride 0.9 % injection 3 mL 3 mL, intravenous, As needed, line care, Starting on Elizabeth 01/22/20 at 1411, Pre-Op, Prior to and following infusion and betw een multiple consecutive infusions: sodium chloride 0.9 % injection sodium chloride 0.9 % injection 3 mL 3 mL, intravenous, Every 12 hours scheduled, First dos e on Elizabeth 01/22/20 at 2100, Pre-Op, Peripheral Intravenous Catheter and Rapid Infu mario alberto Catheter, when no infusion to maintain patency documented in this encounter Active and Recently Administered Medications Times are shown in CDT. Scheduled Medication Order 01/20/2020 01/21/2020 01/22/2020 ceFAZolin injection 2,000 mg (ANCEF) (COMPLETED) 1630 (Given - Provider: Luis E Glass APRN, STONE SPLITTER, DNAP) 2,000 mg (rounded from 2,485 mg = 25 mg/ kg ? 99.4 kg), intravenous, Once, On Elizabeth 01/22/20 at 1530, For 1 dose, Intra-Op, Preoperatively within 1 hour prior to surgical incision If needed, reconstitute vi al per package insert instructions. See IVAG for administration guidelines. , , Drug Monitoring Program: Pharmacist to adjust medication dosing based on indication and drug clearance factors., Indications: Prophylaxis, surgical sodium chloride 0.9 % injection 3 mL 3 mL, intravenous, Every 12 hours schedu led, First dose on Elizabeth 01/22/20 at 2100, Pre-Op, Peripheral Intravenous Catheter and Rapid Infusion Catheter, when no infusion to maintain patency Continuous Medication Order 01/20/2020 01/21/2020 01/22/2020 lactated ringers 1645 (Due) 125 mL/hr, intravenous, at 125 mL/hr, Co ntinuous, Starting Elizabeth 01/22/20 at 1645, PACU & Post-Op PRN Medication Order 01/20/2020 01/21/2020 01/22/2020 metoprolol tablet 12.5 mg (LOPRESSOR) 12.5 mg, oral, Once as needed, if patien t did not take their last scheduled dose of beta leana prior to arrival, Starting on Elizabeth 01/22/20 at 1411, For 1 dose, Pre-Op, Do not give if patient does not collin e scheduled beta blockers, if patient is receiving [...] needed, line care , Starting on Elizabeth 01/22/20 at 1411, Pre- Op, Peripheral Intravenous Catheter and Rapid Infusion Catheter, prior to blood sampling, post blood transfusion or post blood sampling sodium chloride 0.9 % injection 3 mL 3 mL, intravenous, As needed, line care, Starting on Elizabeth 01/22/20 at 1411, Pre-Op, Prior to and following infusion and between multiple consecutive infusions: sodium chloride 0.9 % injection documented in this encounter Additional Health Concerns Assessment Noted Time PHQ-9 Depression Total Score: 4 01/30/2019 12:13 PM CD T documented as of this encounter Care Teams Food And Beverage Service Manager Relationship Specialty Start Date End Date Elsewhere, Pcp PCP - General 09/17/19 documented as of this encounter
--- OUTSIDE RECORDS SUMMARY | 2022-05-25 13:14 | XMS_ITS | Encounter Summary ---
:1960 Author Organization [facility] Address [address] [place] [address] Care Team Providers Name Role Phone Elsewhere, Pcp Primary Care Provider Unavailable Encounter Details Date Type Department Care Team Description 04/19/2020 Orders Only Division of Nephrology and Candelario, Josué Quiles PRN, Hypertension, Hinduism C.N.P. [place], in [place], [address] [place] [address] [place] [phone] [place] [address] [phone] Social History Tobacco Use Types Packs/Day Years [...] How often do you attend buddhist or judaism 1 to 4 times per [...] An Nicholas APRN C.N.P., D.N.P., M.S.N. [address] [place] [address] [phone] (Wo rk) 07/31/2022 Lab Laboratory Medicine Tony Rubalcava M. B., ChBurke, MDebra [address] [place] [address] [phone] (Wo rk) 07/31/2022 Lab Laboratory Medicine Tony Rubalcava M. B., ChBurke, MDebra [address] [place] [address] [phone] (Wo rk) 07/31/2022 Office Visit Transplant Tony Rubalcava M.B., Sydnie, MDebra [address] [place] [address] [phone] (Wo rk) 07/31/2022 Appointment Radiology Tony Rubalcava M.B.Sydnie M.D. [address] [place] [address] [phone] (Wo rk) 08/01/2022 Office Visit Transplant Tony Rubalcava M.B., Mukund [place] [address] [place] [address] [phone] (Wo rk) 08/01/2022 Clinical Support Transplant Tony Rubalcava M.B., Mukund [place] [address] [place] [address] [phone] (Wo rk) documented as of this encounter Visit Diagnoses Not on filedocumented in this encounter Additional Health Concerns Assessment Noted Time PHQ-9 Depression Total Score: 4 01/30/2019 12:13 PM CD T documented as of this encounter Care Teams Electronic Video Games Servicer Relationship Specialty Start Date End Date Elsewhere, Pcp PCP - General 09/17/19 documented as of this encounter
--- OUTSIDE RECORDS SUMMARY | 2022-05-25 13:14 | XMS_ITS | Encounter Summary ---
:1960 Author Organization [facility] Address [address] [place] [address] Care Team Providers Name Role Phone Elsewhere, Pcp Primary Care Provider Unavailable Encounter Details Date Type Department Care Team Description 04/07/2020 Orders Only [facility] . (HCC) (Primary Dx) Transplantation and [address] [place] [address] Clinical Regeneration in [place], [place] [address] [place] [address] [place] [address] (Work) [phone] Social History Tobacco Use Types Packs/Day Years [...] How often do you attend voodoo or confucianism 1 to 4 times per [...] Nicholas APRN C.N.P., D.N.P., M.S.N. [address] [place] [address] [phone] (Nicolas wen) 07/31/2022 Lab Laboratory Medicine Tony Rubalcava M. B., ChBurke, MElvia. [address] [place] [address] [phone] (Nicolas wen) 07/31/2022 Lab Laboratory Medicine Tony Rubalcava M. B., ChBurke, MElvia. [address] [place] [address] [phone] (Nicolas wen) 07/31/2022 Office Visit Transplant Tony Rubalcava M.B., ChBurke, MElvia. [address] [place] [address] [phone] (Nicolas wen) 07/31/2022 Appointment Radiology Tony Rubalcava M.B., Mukund [place] [address] [place], [place] 55 [phone] (Wo rk) 08/01/2022 Office Visit Transplant Tony Rubalcava M.B., [place]und [place] [address] [place], [place] [phone] (Nicolas wen) 08/01/2022 Clinical Support Transplant Tony Rubalcava M.B., [place]und [place] [address] [place], [place] 55 [phone] (Nicolas rk) documented as of this encounter Results Tacrolimus, B (05/17/2020 5:30 AM CDT) athologist Signature Tacrolimus, B 5.1 5.0-15.0 05/19/2020 [facility] (Trough) 10:53 AM CDT ng/mL Comment: ----ADDITIONAL INFORMATION---- Target steady-state trough concentration s vary depending on the type of transplant, concomitant immunosuppressio n, clinical/institutional protocols, and time post-transplant. Results should be interpreted in conjunction with this clinical information and any physic al signs/symptoms of rejection/toxicity. Testing performed by Liquid Chromatograp hy-Tandem Mass Spectrometry (LC-MS/MS). This test was developed and its performa nce characteristics determined by [facility] in a manner consistent with CLIA requirements. This test has not been cleared or approved by the [place] d and Drug Administration. Specimen Anatomical Collection Method Collection Time Receive d Time (Source) Location / / Volume Laterality Blood (Blood, 05/17/2020 5:30 AM 05/19/20 7:12 Venous) CDT AM CDT Resulting Agency Comment Mailed In Specimen Soraya Lu P.A.-C., M.S. LAB BLOOD NON ADD-ON Performing Organization Address City/State/ZIP Code Phon e Number [facility] [address] [place], [place] [address] [place], [place] [address]. [place] [address] Laboratory Medicine and Pathology [address] 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
--- OUTSIDE RECORDS SUMMARY | 2022-05-25 13:14 | XMS_ITS | Encounter Summary ---
:1960 Author Organization [facility] Address [address] [place] [address] Care Team Providers Name Role Phone Elsewhere, Pcp Primary Care Provider Unavailable Encounter Details Date Type Department Care Team Description 03/04/2020 Clinical Communication Ata Hong, Center for Angelina J, Transplantation and Tete WHITE, Clinical Regeneration in [place], [place] [address] [facility] [address] [place] [phone] Social History Tobacco Use Types Packs/Day Years [...] How often do you attend druze or confucianist 1 to 4 times per [...] Nicholas APRN, C.N.P., D.N.P., M.S.N. [address] [place] [phone] (Nicolas wen) 07/31/2022 Lab Laboratory Medicine Tony Rubalcava M. B., ChDaviBDavi, M.D. [address] [place] [address] [phone] (Nicolas wen) 07/31/2022 Lab Laboratory Medicine Tony Rubalcava M. B., ChDaviBDavi, M.D. [address] [place] [address] 55 [phone] (Nicolas wen) 07/31/2022 Office Visit Transplant Tony Rubalcava M.B., ChBurke, MElvia. [address] [place] [phone] (Nicolas wen) 07/31/2022 Appointment Radiology Tony Rubalcava M.B., Mukund [place] [address] [place], [place] [phone] (Wo rk) 08/01/2022 Office Visit Transplant Tony Rubalcava M.B., Mukund [place] [address] [place], [place] 55 [phone] (Nicolas wen) 08/01/2022 Clinical Support Transplant Tony Rubalcava M.B., Mukund [place] [address] [place], [place] [phone] (Nicolas rk) documented as of this encounter Results HIV-1/-2 Ag and Ab Screen, Plasma (03/15/2020 5:30 AM CDT) athologist Signature HIV-1/-2 Ag Negative Negative 03/16/2020 [facility] and Ab Screen, 4:48 PM CDT P Comment: Negative result does not rule out HIV in fection. If exposure to HIV infection occurred <14 d ays ago, contact the laboratory to request additi on of HIV-1 RNA detection / quantification test (HIV QN). Specimen Anatomical Collection Method Collection Time Receive d Time (Source) Location / / Volume Laterality Blood (Blood, 03/15/2020 5:30 AM 03/16/20 20 3:20 Venous) CDT PM CDT Resulting Agency Comment Mailed In Specimen Angelina Gaona APRN, C.N.P., M.S.N. LAB MICROBIOL OGY - BLOOD ORDERABLES Performing Organization Address City/State/ZIP Code Phon e Number [facility] [address] [place] [address] SUPPORT [facility] [place] [address] Laboratory Medicine and Pathology [address] [place] HLA Class II SAB Antibody Screen (03/15/2020 5:30 AM CDT) Patholo gist Method Time Signature Class II SAB Positive Not Applicable 03/18/2020 [facility] Overall 8:33 AM CDT Result Class II SAB 37 03/18/2020 [facility] cPRA 8:33 AM CDT Comment: ----ADDITIONAL INFORMATION---- This PRA is a [facility] calculated PRA. PRA is based on the antigen frequency of the Tissue Typing patient a nd donor population. ??PRA reflects all antibodie s with a normalized value (MFI) above 300. SAB DRB1 Specificity NONE 03/18/2020 8:33 AM CDT [facility] SAB [id number] Specificity NONE 03/18/2020 8:33 A M CDT [facility] SAB DQB1 Specificity see below 03/18/2020 8:33 AM CDT D[facility] Comment: 2[15760] Format: Serologic equivalent/abbreviated specificity [Normalized Value] shown in decreasing o rder. Note: A serologic equivalent/abbreviated specifi city displayed multiple times could indicate different alleles. SAB DPB1 Specificity see below 03/18/2020 8:33 AM CDT D[facility]8 Comment: 28[320] Format: Serologic equivalent/abbreviated specificity [Normalized Value] shown in decreasing o rder. Note: A serologic equivalent/abbreviated specifi city displayed multiple times could indicate different alleles. ----ADDITIONAL INFORMATION---- Method: Luminex Flow Cytometry CLIA: [id number] ??CLIA Cyber Security Analyst: SHANTA LOYD MD,PhD Specimen Anatomical Collection Method Collection Time Receive d Time (Source) Location / / Volume Laterality Blood (Blood, 03/15/2020 5:30 AM 03/16/20 20 1:14 Venous) CDT PM CDT Resulting Agency Comment Mailed In Specimen Angelina Gaona APRN C.N.P., M.S.N. LAB HLA ORDER JS Performing Organization Address City/State/ZIP Code Phon e Number [facility] - [address] [place], [place] [address] [facility] [address] [place] [address] [facility] [address] HLA Class I SAB Antibody Screen (03/15/2020 5:30 AM CDT) [facility] Method Time Signature Class I SAB Positive Not Applicable 03/18/2020 [facility] Overall 8:23 AM CDT Result Class I SAB 79 03/18/2020 [facility] cPRA 8:23 AM CDT Comment: ----ADDITIONAL INFORMATION---- This PRA is a [facility] calculated PRA. PRA is based on the antigen frequency of the Tissue Typing patient a nd donor population. ??PRA reflects all antibodie s with a normalized value (MFI) above 300. SAB A Specificity see below 03/18/2020 8:23 AM CDT D[facility]8 Comment: 32[3445], 25[1951], 23[1690], 31[1560], 24[1546], 24[1411], 30[823], 30[521] Format: Serologic equivalent/abbreviated specificity [Normalized Value] shown in decreasing o rder. Note: A serologic equivalent/abbreviated specifi city displayed multiple times could indicate different alleles. SAB B Specificity see below 03/18/2020 8:23 AM CDT DBB8 Comment: 51[6929], 51[4161], 49[3486], 77[3061], 52[3005], 38[2966], 59[2722], 63[2564], 75[2413], 78[2382], 53[2196], 57[2134], 58[2112], 57[1938], 27[869], 37[751], 44 [696], 71[695], 75[664], 44[587], 13[480], 47[450] Format: Serologic equivalent/abbreviated specificity [Normalized Value] shown in decreasing o rder. Note: A serologic equivalent/abbreviated specifi city displayed multiple times could indicate different alleles. SAB C Specificity NONE 03/18/2020 8:23 AM CDT DBB8 Comment: ----ADDITIONAL INFORMATION---- Method: Luminex Flow Cytometry CLIA: [id number] ??CLIA Cyber Security Analyst: SHANTA LOYD MD,PhD Specimen Anatomical Collection Method Collection Time Receive d Time (Source) Location / / Volume Laterality Blood (Blood, 03/15/2020 5:30 AM 03/16/20 20 1:14 Venous) CDT PM CDT Resulting Agency Comment Mailed In Specimen Angelina Gaona APRN, C.N.P., M.S.N. LAB HLA ORDER JS Performing Organization Address City/State/ZIP Code Phon e Number [facility] - [address] [place], [place] [address] [facility] [place] [place] [address] [facility] [address] documented in this encounter Visit Diagnoses Diagnosis Pretransplant Recipient Evaluation Exam - Primary Chronic Kidney Disease documented in this encounter Additional Health Concerns Assessment Noted Time PHQ-9 Depression Total Score: 4 01/30/2019 12:13 PM CD T documented as of this encounter Care Teams Tail Ripper Relationship Specialty Start Date End Date Elsewhere, Pcp PCP - General 09/17/19 documented as of this encounter
--- OUTSIDE RECORDS SUMMARY | 2022-05-25 13:14 | XMS_ITS | Encounter Summary ---
:1960 Author Organization [facility] Address [address] [place] [address] Care Team Providers Name Role Phone Elsewhere, Pcp Primary Care Provider Unavailable Encounter Details Date Type Department Care Team Description 04/05/2020 Documentation Division of Nephrology and Josr Martínez Hypertension in [place], ., D.O. [place] [address] [facility] [address] [place] [phone] (Wo rk) Social History Tobacco Use Types [...] How often do you attend yarsanism or jewish 1 to 4 times per [...] Progress Notes Steve Martínez Jr., D.O. - 04/05/2020 10:32 AM CDT Care coordination, progress note-dialysis visit Please see the scanned in, Care everywhere, and document Cristopher's are [facility]. She continues to have issues with a sensory nerve which lies over the bottom portion of her arteriovenous graft in her right upper extremity. The pain is so severe that often the needle needs to be removed and replaced. This is quite a challenge, and often leaves very little cannulation space for the dialysis team. We discussed whether there be a potential to safely ablate this nerve, thereby facilitating her dialysis treatments. I discussed this could potentially not be possible, on the background of the high flow rates, and infection risk, but that I would ask our pain specialists for their expertise. She is enthusiastically in support of going ahead as fast as possible with this. She is on low-dose warfarin with a goal to keep her INR above 1 but below 2. She has done well with this her INR has been roughly 1.5, we can have her hold her warfarin prior to any planned procedure. Impression report plan: 1. 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 End-stage renal disease on incenter hemodialysis 3. Right upper extremity arteriovenous graft 4. Low-dose oral anticoagulation, for graft patency 5. 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 [address] [place] [phone] (Wo rk) 07/31/2022 Lab Laboratory Medicine Tony Rubalcava M. B., ChBurke, MDebra [address] [place] [phone] (Wo rk) 07/31/2022 Lab Laboratory Medicine Tony Rubalcava M. B., ChBurke, Mukund [address] [place] [phone] (Wo rk) 07/31/2022 Office Visit Transplant Tony Rubalcava M.B., ChBurke, MDebra [address] [place] [phone] (Wo rk) 07/31/2022 Appointment Radiology Tony Rubalcava M.B., ChBurke, MDebra [address] [place] [phone] (Wo rk) 08/01/2022 Office Visit Transplant Tony Rubalcava M.B., ChBurke, MDebra [address] [place] [phone] (Wo rk) 08/01/2022 Clinical Support Transplant Tony Rubalcava M.B., ChBurke, MDebra [address] [place] [phone] (Wo rk) documented as of this encounter Visit Diagnoses Not on filedocumented in this encounter Additional Health Concerns Assessment Noted Time PHQ-9 Depression Total Score: 4 01/30/2019 12:13 PM CD T documented as of this encounter Care Teams Show Host Or Hostess Relationship Specialty Start Date End Date Elsewhere, Pcp PCP - General 09/17/19 documented as of this encounter
--- OUTSIDE RECORDS SUMMARY | 2022-05-25 13:14 | XMS_ITS | Encounter Summary ---
:1960 Author Organization [facility] Address [address] [place] [address] Care Team Providers Name Role Phone Elsewhere, Pcp Primary Care Provider Unavailable Reason for Visit Reason Comments Tacrolimus Adjustment Protocol Encounter Details Date Type Department Care Team Description 02/26/2020 Clinical Sidney [facility] Center for Pretty A, Adjustment Transplantation and M.S.N., R.N. Protocol Clinical Regeneration [phone] in [facility] [address] [place] [address] Social History Tobacco Use Types Packs/Day Years [...] How often do you attend jain or yazidi 1 to 4 times per [...] Encounter - Pretty Sumner M.S.N., R.N. - 03/03/2020 9:34 AM CDT Patient was busy at the moment. She preferred that we send her a portal message with dose adjustmentrecommendations. Portal message sent Telephone Encounter - Pretty Sumner M.S.N., R.N. - 03/01/2020 12:08 PM CDT Alejandro Greene, No problem at all. Thank you so much for doing that and thank you for updating EDIT. Pretty Telephone Encounter - Soraya Lu P.A.-C., M.S. - 03/01/2020 12:06 PM CDT Bebeto Olsen, I meant that 'orders signed' note to be in another encounter. I did, however, have a chance to review with Dr. Amer today and he said it is reasonable to reduce her tacrolimus goal to 4-6. I did update it in [employer] just now. Thanks Ramona Telephone Encounter - Pretty Sumner M.S.N., R.N. - 03/01/2020 11:48 AM CDT Alejandro Greene, Soraide for the confusion with this since I sent the message in the protocol. Pharmacy was wondering if we should make any changes to this patients tacrolimus goal range since she is graft failure and on dialysis? Current goal range is 6-8. Thank you, Pretty Sumner RN Please route back to: P rst txp post rncc team3 Telephone Encounter - Soraya Lu P.A.-C., M.S. - 03/01/2020 11:46 AM CDT Orders signed Telephone Encounter - Pretty Sumner M.S.N., R.N. 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 Her current tacrolimus goal is 6-8. Do you have thoughts on decreasing her goal? Thank you, Pretty Sumner RN Please route back to: P rst txp post rncc team3 Telephone Encounter - Elena Fabian Pharm.D., R.Ph. - 02/26/2020 9:23 AM CDT Transplanted Organ and Date:04/27/2008 (Kidney) team number: Shira Díaz Current tacrolimus goal level:6-8ng/ml 02/08: 3.4 ng/ml (6-8) on 3 mg AM and 2 mg PM 01/02: 3.8 ng/ml (6-8) on 2 mg twice daily (dose not changed as recommended, misunderstood) 11/30: 4.1 ng/ml (6-8) on 2 mg twice daily 09/03: 9.3 ng/ml (6-8) on 2 mg twice daily 05/26: 3.4 ng/ml (6-8) on 2 mg twice daily Plan: Increase tacrolimus to 3 mg twice daily. Recheck tacrolimus level in 2 to 4 weeks. Given she now has graft failure and is back on dialysis, should we check in with the nephrologists to see if her goal can or should be lowered? Updated prescription sent to [facility]. Telephone Encounter - Pretty Sumner M.S.Milady., R.N. - 02/26/2020 8:22 AM CDT Transplanted Organ and Date:04/27/2008 (Kidney) team number: Shira Díaz Current tacrolimus goal level:6-8ng/ml Last tacrolimus level and date: 3.4 ng/ml on 02/08 Current tacrolimus formulation and dose:3 mg in AM and 2 mg in PM Was the tacrolimus dose changed within the last 2 weeks?: No Missed doses in last week: No Medications changes in last week: No Vomiting?No Diarrhea? No New onset BANDA? No New onset tremor? No Pharmacy patient uses for immunosuppression: [facility] in [place] Any other pertinent information related to above (please comment on any pertinent answers above)? documented in this encounter Plan of Treatment Upcoming Encounters Date Type Specialty Care Team Description 06/01/2022 Telemedicine Pharmacy An Nicholas APRN, C.N.P., D.N.P., M.S.N. [address] [place] [address] [phone] (Nicolas rk) 07/31/2022 Lab Laboratory Medicine Tony Rubalcava M. B., Ch.BDavi, M.D. [address] [place] [address] [phone] (Wo rk) 07/31/2022 Lab Laboratory Medicine Tony Rubalcava M. B., Ch.B., M.D. [address] [place] [address] 55 [phone] (Nicolas wen) 07/31/2022 Office Visit Transplant Tony Rubalcava M.B., ChBurke, MDebra [address] [place] [address] [phone] (Nicolas wen) 07/31/2022 Appointment Radiology Tony Rubalcava M.B., Ch.BDavi, M.D. [address] [place] [address] 55 [phone] (Nicolas wen) 08/01/2022 Office Visit Transplant Tony Rubalcava M.B., ChDaviBDavi, M.D. [address] [place] [address] 55 [phone] (Nicolas wen) 08/01/2022 Clinical Support Transplant Tony Rubalcava M.B., ChDaviBDavi, M.D. [address] [place] [address] 55 [phone] (Nicolas wen) documented as of [...]
--- OUTSIDE RECORDS SUMMARY | 2022-05-25 13:14 | XMS_ITS | Encounter Summary ---
:1960 Author Organization [facility] Address [address] [place] [address] Care Team Providers Name Role Phone Elsewhere, Pcp Primary Care Provider Unavailable Reason for Visit Reason Comments Tacrolimus Adjustment Protocol Encounter Details Date Type Department Care Team Description 05/19/2020 Clinical Charity Desai [facility] Communication Center for A, R.N., Adjustment Transplantation and C.C.T.C. Protocol Clinical Regeneration [address] [facility] in [facility] [phone] [place] [address] [place], [place] (Work) [phone] Social History Tobacco Use Types Packs/Day Years [...] How often do you attend religious or taoist 1 to 4 times per [...] Encounter - Charity Gutiérrez R.N., C.C.T.C. - 05/19/2020 3:46 PM CDT 5.1 level within goal range of 4-6, per Tacrolimus Adjustment Protocol no dose change recommended. Current Tacrolimus dose 3 mg twice a day. documented in this encounter Plan of Treatment Upcoming Encounters Date Type Specialty Care Team Description 06/01/2022 Telemedicine Pharmacy An Nicholas APRN, C.N.P., D.N.P., M.S.N. [address] [place] [address] [phone] (Wo rk) 07/31/2022 Lab Laboratory Medicine Tony Rubalcava M. B., Ch.Maurice, M.D. [address] [place] [address] [phone] (Wo rk) 07/31/2022 Lab Laboratory Medicine Tony Rubalcava M. B., Sydnie, Mukund [address] [place] [address] [phone] (Wo rk) 07/31/2022 Office Visit Transplant Tony Rubalcava M.B., Sydnie, Mukund [address] [place] [address] 55 [phone] (Wo rk) 07/31/2022 Appointment Radiology Tony Rubalcava M.B., Sydnie, Mukund [address] [place] [address] [phone] (Wo rk) 08/01/2022 Office Visit Transplant Tony Rubalcava M.B., Sydnie, Mukund [address] [place] [address] [phone] (Wo rk) 08/01/2022 Clinical Support Transplant Tony Rubalcava M.B., Sydnie, Mukund [address] [place] [address] [phone] (Wo rk) documented as of this encounter Visit Diagnoses Not on filedocumented in this encounter Additional Health Concerns Assessment Noted Time PHQ-9 Depression Total Score: 4 01/30/2019 12:13 PM CD T documented as of this encounter Care Teams Retail Marketing Executive Relationship Specialty Start Date End Date Elsewhere, Pcp PCP - General 09/17/19 documented as of this encounter
--- OUTSIDE RECORDS SUMMARY | 2022-05-25 13:14 | XMS_ITS | Encounter Summary ---
:1960 Author Organization [facility] Address [address] [place] [address] Care Team Providers Name Role Phone Elsewhere, Pcp Primary Care Provider Unavailable Reason for Visit Reason Comments Pre-Charting Encounter Details Date Type Department Care Team Description 05/28/2020 Clinical Communication Division of Pain Charlee Painter Pre-Charting Medicine in [place] Hernandez M.D. [place] [address] [address] [facility] [address] [place] [phone] [phone] Social History Tobacco Use Types Packs/Day Years [...] How often do you attend orthodox or episcopalian 1 to 4 times per [...] An Nicholas APRN, C.N.P., D.N.P., M.S.N. [address] [place] [address] [phone] (Nicolas wen) 07/31/2022 Lab Laboratory Medicine Tony Rubalcava M. B., ChBurke, MElvia. [address] [place] [address] 55 [phone] (Nicolas wen) 07/31/2022 Lab Laboratory Medicine Tony Rubalcava M. B., ChBurke, M.Michelle. [address] [place] [address] 55 [phone] (Nicolas wen) 07/31/2022 Office Visit Transplant Tony Rubalcava M.B., ChBurke, MElvia. [address] [place] [address] 55 [phone] (Nicolas wen) 07/31/2022 Appointment Radiology Tony Rubalcava M.B., Ch.BDavi, Mukund [address] [place] [address] 55 [phone] (Wo rk) 08/01/2022 Office Visit Transplant Tony Rubalcava M.B., Mukund Otoole [address] [place] [address] 55 [phone] (Wo behzad) 08/01/2022 Clinical Support Transplant Tony Rubalcava M.B., Mukund [place] [address] [place] [address] 55 [phone] (Nicolas wen) documented as of this encounter Visit Diagnoses Not on filedocumented in this encounter Additional Health Concerns Assessment Noted Time PHQ-9 Depression Total Score: 4 01/30/2019 12:13 PM CD T documented as of this encounter Care Teams Clinical Haematologist Relationship Specialty Start Date End Date Elsewhere, Pcp PCP - General 09/17/19 documented as of this encounter
--- OUTSIDE RECORDS SUMMARY | 2022-05-25 13:14 | XMS_ITS | Encounter Summary ---
:1960 Author Organization [facility] Address [address] [place] [address] Care Team Providers Name Role Phone Elsewhere, Pcp Primary Care Provider Unavailable Encounter Details Date Type Department Care Team Description 04/08/2020 Hospital Encounter Department of Soraya Lu Renal Laboratory Medicine M, PJacy-C., M.S. ([facility]) and Pathology, [address] [place] [address] in [place] [phone] [place] [phone] [place] [address] (Work) [place] [address] Social History Tobacco Use Types [...] How often do you attend synagogue or pentecostal 1 to 4 times per [...] chewable with meals. Lunch tablet and dinner. gabapentin (NEURONTIN) Take 3 capsules (300 450 [...] Nicholas APRN, C.N.P., D.N.P., M.S.N. [address] [place] [address] [phone] (Wo rk) 07/31/2022 Lab Laboratory Medicine Tony Rubalcava M. B., Ch.B., M.D. [address] [place] [address] 55 [phone] (Wo rk) 07/31/2022 Lab Laboratory Medicine Tony Rubalcava M. B., Ch.B., M.D. [address] [place] [address] 55 [phone] (Wo rk) 07/31/2022 Office Visit Transplant Tony Rubalcava M.B., Ch.B., M.D. [address] [place] [address] 55 [phone] (Wo rk) 07/31/2022 Appointment Radiology Tony Rubalcava M.B., Mukund Otoole [address] [place] [address] 55 [phone] (Wo rk) 08/01/2022 Office Visit Transplant Tony Rubalcava M.B., Mukund [place] [address] [place] [address] 55 [phone] (Wo rk) 08/01/2022 Clinical Support Transplant Tony Rubalcava M.B., Mukund Otoole [address] [place] [address] 55 [phone] (Wo rk) documented as of this encounter Procedures Procedure Name Priority Date/Time Associated Comments Diagnosis TACROLIMUS LEVEL, B Routine 05/17/2020 5:30 AM Transplant Jessica l Results for this CDT (HCC) procedure are i n the results section. documented in this encounter Results Tacrolimus, B (05/17/2020 5:30 AM CDT) P athologist Signature Tacrolimus, B 5.1 5.0-15.0 05/19/2020 SDSC (Trough) 10:53 AM CDT ng/mL Comment: ----ADDITIONAL [...] its performa nce characteristics determined by [facility] in a manner consistent with CLIA requirements. This test has not been cleared or approved by the [place] d and Drug Administration. Specimen Anatomical Collection Method Collection Time Receive d Time (Source) Location / / Volume Laterality Blood (Blood, 05/17/2020 5:30 AM 05/19/20 20 7:12 Venous) CDT AM CDT Resulting Agency Comment Mailed In Specimen Soraya Lu P.A.-C., M.S. LAB BLOOD NON ADD-ON Performing Organization Address City/State/ZIP Code Phon e Number [facility] [address] [place], [place] [address] [place], [place] [address]t. [place] [address] Laboratory Medicine and Pathology [address] [place] documented in this encounter Visit Diagnoses Diagnosis Transplant Renal (HCC) documented in this encounter Additional Health Concerns Assessment Noted Time PHQ-9 Depression Total Score: 4 01/30/2019 12:13 PM CD T documented as of this encounter Care Teams Annual Giving Officer Relationship Specialty Start Date End Date Elsewhere, Pcp PCP - General 09/17/19 documented as of this encounter
--- OUTSIDE RECORDS SUMMARY | 2022-05-25 13:14 | XMS_ITS | Encounter Summary ---
:1960 Author Organization [facility] Address [address] [place] [address] Care Team Providers Name Role Phone Elsewhere, Pcp Primary Care Provider Unavailable Encounter Details Date Type Department Care Team Description 01/26/2020 Orders Only Division of Nephrology and Neymar Martínez Hypertension in [place], ., D.O. [place] [address] [facility] 200 [place] [address] [phone] (Wo rk) Social History Tobacco Use Types [...] How often do you attend cheondoism or latter-day 1 to 4 times per [...] Nicholas APRN C.N.P., D.N.P., M.S.N. [address] [place] [address] [phone] (Wo rk) 07/31/2022 Lab Laboratory Medicine Tony Rubalcava M. B., Sydnie, MDebra [address] [place] [address] [phone] (Wo rk) 07/31/2022 Lab Laboratory Medicine Tony Rubalcava M. B., ChBurke, MDebra [address] [place] [address] [phone] (Wo rk) 07/31/2022 Office Visit Transplant Tony Rubalcava M.B., Sydnie, MDebra [address] [place] [address] [phone] (Wo rk) 07/31/2022 Appointment Radiology Tony Rubalcava M.B., ChBurkeMukund [address] [place] [address] [phone] (Wo rk) 08/01/2022 Office Visit Transplant Tony Rubalcava M.B., Mukund [place] [address] [place] [address] [phone] (Wo rk) 08/01/2022 Clinical Support Transplant Tony Rubalcava M.B., Mukund [place] [address] [place] [address] [phone] (Wo rk) documented as of this encounter Visit Diagnoses Not on filedocumented in this encounter Additional Health Concerns Assessment Noted Time PHQ-9 Depression Total Score: 4 01/30/2019 12:13 PM CD T documented as of this encounter Care Teams Branch Credit Counselor Relationship Specialty Start Date End Date Elsewhere, Pcp PCP - General 09/17/19 documented as of this encounter
--- OUTSIDE RECORDS SUMMARY | 2022-05-25 13:14 | XMS_ITS | Encounter Summary ---
:1960 Author Organization [facility] Address [address] [place] [address] Care Team Providers Name Role Phone Elsewhere, Pcp Primary Care Provider Unavailable Encounter Details Date Type Department Care Team Description 04/19/2020 Orders Only Division of Nephrology and Candelario, Josué Quiles PRN, Hypertension, Spiritism C.N.P. [place], in [place], [address] [place] [address] [place] [phone] [place] [address] [phone] Social History Tobacco Use Types Packs/Day Years [...] How often do you attend restorationism or amish 1 to 4 times per [...] An Nicholas APRN C.N.P., D.N.P., M.S.N. [address] [place] [address] [phone] (Wo rk) 07/31/2022 Lab Laboratory Medicine Tony Rubalcava M. B., ChBurke, MDebra [address] [place] [address] [phone] (Wo rk) 07/31/2022 Lab Laboratory Medicine Tony Rubalcava M. B., ChBurke, MDebra [address] [place] [address] [phone] (Wo rk) 07/31/2022 Office Visit Transplant Tony Rubalcava M.B., Sydnie, MDebra [address] [place] [address] [phone] (Wo rk) 07/31/2022 Appointment Radiology Tony Rubalcava M.B.Sydnie M.D. [address] [place] [address] [phone] (Wo rk) 08/01/2022 Office Visit Transplant Tony Rubalcava M.B., Mukund [place] [address] [place] [address] [phone] (Wo rk) 08/01/2022 Clinical Support Transplant Tony Rubalcava M.B., Mukund [place] [address] [place] [address] [phone] (Wo rk) documented as of this encounter Visit Diagnoses Not on filedocumented in this encounter Additional Health Concerns Assessment Noted Time PHQ-9 Depression Total Score: 4 01/30/2019 12:13 PM CD T documented as of this encounter Care Teams Contact Lens Manufacturer Relationship Specialty Start Date End Date Elsewhere, Pcp PCP - General 09/17/19 documented as of this encounter
--- OUTSIDE RECORDS SUMMARY | 2022-05-25 13:14 | XMS_ITS | Encounter Summary ---
:1960 Author Organization [facility] Address [address] [place] [address] Care Team Providers Name Role Phone Elsewhere, Pcp Primary Care Provider Unavailable Encounter Details Date Type Department Care Team Description 06/03/2020 Clinical Communication Ata Hong, Center for Angelina J, Transplantation and Tete WHITE, Clinical Regeneration in [place], [place] [address] [facility] [address] [place] [address] [phone] Social History Tobacco Use Types Packs/Day Years [...] How often do you attend pentecostalism or lutheran 1 to 4 times per [...] Nicholas APRN, C.N.P., D.N.P., M.S.N. [address] [place] [address] [phone] (Nicolas wen) 07/31/2022 Lab Laboratory Medicine Tony Rubalcava M. B., ChDaviBDavi, M.D. [address] [place] [address] 55 [phone] (Nicolas wen) 07/31/2022 Lab Laboratory Medicine Tony Rubalcava M. B., ChDaviBDavi, M.D. [address] [place] [address] 55 [phone] (Nicolas wen) 07/31/2022 Office Visit Transplant Tony Rubalcava M.B., ChBurke, MElvia. [address] [place] [address] 55 [phone] (Nicolas wen) 07/31/2022 Appointment Radiology Tony Rubalcava M.B., Mukund [place]to[place] [address] [place], [place] [phone] (Wo rk) 08/01/2022 Office Visit Transplant Tony Rubalcava M.B., Mukund [place] [address] [place], [place] [phone] (Wo rk) 08/01/2022 Clinical Support Transplant Tony Rubalcava M.B., Mukund [place] [address] [place], [place] [phone] (Wo rk) documented as of this encounter Results HLA Class II SAB Antibody Screen (06/21/2020 5:45 AM CLAY MODELER) [facility] Method Time Signature Class II SAB Positive Not Applicable 06/24/2020 DBB8 Overall 8:01 AM CLAY MODELER Result Class II SAB 37 06/24/2020 DBB8 cPRA 8:01 AM CLAY MODELER Comment: ----ADDITIONAL INFORMATION---- This PRA is a [facility]iss ue Typing Laboratory calculated PRA. PRA is based on the antigen frequency of the Tissue Typing patient a nd donor population. ??PRA reflects all antibodie s with a normalized value (MFI) above 300. SAB DRB1 Specificity NONE 06/24/2020 8:01 AM CLAY MODELER DBB8 SAB [id number] Specificity NONE 06/24/2020 8:01 A M CLAY MODELER DBB8 SAB DQB1 Specificity see below 06/24/2020 8:01 AM CLAY MODELER DBB8 Comment: 2(A*05:01;B*02:01)[8286] Format: Serologic Eq.(DQA1;DQB1 Mol. All jorge)[Normalized MFI] NOTE: Data is displayed in descending or kristi by Mean Fluorescence Intensity (MFI). ??Serologic equivalents can be di splayed multiple times for different molecular alleles. SAB DPB1 Specificity NONE 06/24/2020 8:01 AM CLAY MODELER DBB8 Comment: ----ADDITIONAL INFORMATION---- Method: Luminex Flow Cytometry CLIA: [id number] ??CLIA Production Specialist: SHANTA LOYD MD,PhD Specimen Anatomical Collection Method Collection Time Receive d Time (Source) Location / / Volume Laterality Blood (Blood, 06/21/2020 5:45 AM 06/22/20 20 Venous) CLAY MODELER 10:47 AM CLAY MODELER Resulting Agency Comment Mailed In Specimen Fracisco Conway APRN.NDaviP., M.S.N. LAB HLA ORDER JS Performing Organization Address City/State/ZIP Code Phon e Number [facility] - 200 [place], [place] [address] [facility] DBB[place] [address] [facility] [address] HLA Class I SAB Antibody Screen (06/21/2020 5:45 AM CLAY MODELER) [facility] Method Time Signature Class I SAB Positive Not Applicable 06/24/2020 DBB8 Overall 7:51 AM CLAY MODELER Result Class I SAB 18 06/24/2020 DBB8 cPRA 7:51 AM CLAY MODELER Comment: ----ADDITIONAL INFORMATION---- This PRA is a [facility] Tiss ue Typing Laboratory calculated PRA. PRA is based on the antigen frequency of the Tissue Typing patient a nd donor population. ??PRA reflects all antibodie s with a normalized value (MFI) above 300. SAB A Specificity see below 06/24/2020 7:51 AM CLAY MODELER DBB8 Comment: 32(32:01)[2111], 25(25:01)[1172], 23(23: 01)[967], 24(24:03)[815], 24(24:02)[805], 31(31:01 )[592], 30(30:02)[538] Format: Serologic Eq.(A Mol. Allele)[Nor malized MFI] NOTE: Data is displayed in descending or kristi by Mean Fluorescence Intensity (MFI). ??Serologic equivalents can be di splayed multiple times for different molecular alleles. SAB B Specificity see below 06/24/2020 7:51 AM CLAY MODELER DBB8 Comment: 51(51:01)[5426], 51(51:02)[3273], 49(49: 01)[2656], 78(78:01)[2096], 63(15:16)[1821], 38(38: 01)[1802], 75(15:02)[1706], 59(59:01)[1661], 77(15: 13)[1592], 52(52:01)[1505], 57(57:01)[1431], 57(57: 03)[1239], 53(53:01)[1191], 58(58:01)[1160] Format: Serologic Eq.(B Mol. Allele)[Nor malized MFI] NOTE: Data is displayed in descending or kristi by Mean Fluorescence Intensity (MFI). ??Serologic equivalents can be di splayed multiple times for different molecular alleles. SAB C Specificity NONE 06/24/2020 7:51 AM CLAY MODELER DBB8 Comment: ----ADDITIONAL INFORMATION---- Method: Luminex Flow Cytometry CLIA: [id number] ??CLIA Production Specialist: SHANTA LOYD MD,PhD Specimen Anatomical Collection Method Collection Time Receive d Time (Source) Location / / Volume Laterality Blood (Blood, 06/21/2020 5:45 AM 06/22/20 20 Venous) CLAY MODELER 10:47 AM CLAY MODELER Resulting Agency Comment Mailed In Specimen Angelina Gaona APRN, C.N.P., M.S.N. LAB HLA ORDER JS Performing Organization Address City/State/ZIP Code Phon e Number [facility] - [address] [place], [place] [address] [facility] DBB8 [place] [address] [facility] [address] documented in this encounter Visit Diagnoses Diagnosis Transplant Renal (HCC) - Primary documented in this encounter Additional Health Concerns Infection Onset Date Last Indicated Resolved Time COVID19 Pending 06/23/2020 06/24/2020 06/26/2020 10:51 AM CLAY MODELER Assessment Noted Time PHQ-9 Depression Total Score: 4 01/30/2019 12:13 PM CD T documented as of this encounter Care Teams Water Ski Assembler Relationship Specialty Start Date End Date Elsewhere, Pcp PCP - General 09/17/19 documented as of this encounter
--- OUTSIDE RECORDS SUMMARY | 2022-05-25 13:14 | XMS_ITS | Encounter Summary ---
:1960 Author Organization [facility] Address [address] [place] [address] Care Team Providers Name Role Phone Elsewhere, Pcp Primary Care Provider Unavailable Encounter Details Date Type Department Care Team Description 03/04/2020 Hospital Encounter Department of [place], Pretrans plant Recipient Evaluation Exam; Laboratory Medicine Angelina Belle, Chronic Kidney Disease and Pathology, MEDICAL TRANSLATOR, C.N.PDaviFowler, in M.S.N. [place], [address] [place], [place] [address] [facility] [address] [place], [place] [phone] [address] (Work) [phone] Social History Tobacco Use Types Packs/Day Years [...] How often do you attend anabaptist or lutheran 1 to 4 times per [...] mouth every evening. 100-1 mg tablet mycophenolate Take 1 capsule (250 180 capsule 3 03/14/2019 0 03/05/2020 (CELLCEPT) 250 mg mg total) by mouth 2 capsule (two) times a day. Do not break, cut, or open capsules. mycophenolate TAKE 1 CAPSULE(250 180 capsule 3 [...] Nicholas APRN, C.N.P., D.N.P., M.S.N. [address] [place] [address] 55 [phone] (Wo rk) 07/31/2022 Lab Laboratory Medicine Tony Rubalcava M. B., Ch.B., M.D. [address] [place] [address] 55 [phone] (Wo rk) 07/31/2022 Lab Laboratory Medicine Tony Rubalcava M. B., Ch.B., M.D. [address] [place] [address] 55 [phone] (Wo rk) 07/31/2022 Office Visit Transplant Tony Rubalcava M.B., Sydnie, Mukund [address] [place] [address] [phone] (Wo rk) 07/31/2022 Appointment Radiology Tony Rubalcava M.B., Mukund [place] [address] [place] [address] [phone] (Wo rk) 08/01/2022 Office Visit Transplant Tony Rubalcava M.B., Sydnie, Mukund [address] [place] [address] [phone] (Wo rk) 08/01/2022 Clinical Support Transplant Tony Rubalcava M.B., Sydnie, Mukund [address] [place] [address] [phone] (Wo rk) documented as of this encounter Procedures Procedure Name Priority Date/Time Associated Diagnosis Comme nts HIV-1/-2 AG AND AB Routine 03/15/2020 5:30 AM Pretransplant Re sults for this SCREEN, PLASMA CDT Recipient Evaluation proce vanessa are in Exam the results Chronic Kidney Disease secti on. HLA CLASS II SAB Routine 03/15/2020 5:30 AM Pretransplant Resu lts for this ANTIBODY SCREEN CDT Recipient Evaluation proc edure are in Exam the results Chronic Kidney Disease secti on. HLA CLASS I SAB Routine 03/15/2020 5:30 AM Pretransplant Resul ts for this ANTIBODY SCREEN CDT Recipient Evaluation proc edure are in Exam the results Chronic Kidney Disease secti on. documented in this encounter Results HIV-1/-2 Ag and Ab Screen, Plasma (03/15/2020 5:30 AM CDT) P athologist Signature HIV-1/-2 Ag Negative Negative 03/16/2020 SDSC and Ab Screen, 4:48 PM CDT P [...] City/State/ZIP Code Phon e Number [facility] [address] [place], [place] [address] SUPPORT [facility] [address] Laboratory Medicine and Pathology [address] [place] HLA Class II SAB Antibody Screen (03/15/2020 5:30 AM CDT) [facility] Method Time Signature Class II SAB Positive Not Applicable 03/18/2020 DBB8 Overall 8:33 AM CDT Result Class II SAB 37 03/18/2020 DBB8 cPRA 8:33 AM CDT Comment: ----ADDITIONAL INFORMATION---- This PRA is a [facility] Tiss ue Typing Laboratory calculated PRA. PRA is based on the antigen frequency of the Tissue Typing patient a nd donor population. ??PRA reflects all antibodie s with a normalized value (MFI) above 300. SAB DRB1 Specificity NONE 03/18/2020 8:33 AM CDT DBB8 SAB [id number] Specificity NONE 03/18/2020 8:33 A M CDT DBB8 SAB DQB1 Specificity see below 03/18/2020 8:33 AM CDT DBB8 Comment: 2[31487] Format: Serologic equivalent/abbreviated specificity [Normalized Value] shown in decreasing o rder. Note: A serologic equivalent/abbreviated specifi city displayed multiple times could indicate different alleles. SAB DPB1 Specificity see below 03/18/2020 8:33 AM CDT DBB8 Comment: 28[583] Format: Serologic equivalent/abbreviated specificity [Normalized Value] shown in decreasing o rder. Note: A serologic equivalent/abbreviated specifi city displayed multiple times could indicate different alleles. ----ADDITIONAL INFORMATION---- Method: Luminex Flow Cytometry CLIA: [id number] ??CLIA Front End Software Developer: SHANTA LOYD MD,PhD Specimen Anatomical Collection Method Collection Time Receive d Time (Source) Location / / Volume Laterality Blood (Blood, 03/15/2020 5:30 AM 03/16/20 1:14 Venous) CDT PM CDT Resulting Agency Comment Mailed In Specimen Angelina Gaona APRN C.N.P., M.S.N. LAB HLA ORDER JS Performing Organization Address City/State/ZIP Code Phon e Number [facility] - [address] [place], [place] [address] [facility] [address] [place] [address] [facility] [address] HLA Class I SAB Antibody Screen (03/15/2020 5:30 AM CDT) [facility] Method Time Signature Class I SAB Positive Not Applicable 03/18/2020 DBB8 Overall 8:23 AM CDT Result Class I SAB 79 03/18/2020 DBB8 cPRA 8:23 AM CDT Comment: ----ADDITIONAL INFORMATION---- This PRA is a [facility] Tiss ue Typing Laboratory calculated PRA. PRA [...] ----ADDITIONAL INFORMATION---- Method: Luminex Flow Cytometry CLIA: [id number] ??CLIA Front End Software Developer: SHANTA LOYD MD,PhD Specimen Anatomical Collection Method Collection Time Receive d Time (Source) Location / / Volume Laterality Blood (Blood, 03/15/2020 5:30 AM 03/16/20 20 1:14 Venous) CDT PM CDT Resulting Agency Comment Mailed In Specimen Angelina Gaona APRN C.N.P., M.S.N. LAB HLA ORDER JS Performing Organization Address City/State/ZIP Code Phon e Number [facility] - [address] [place], [place] [address] [facility] [place] [address]BB[address] [place] [address] [facility] [address] documented in this encounter Visit Diagnoses Diagnosis Pretransplant Recipient Evaluation Exam Chronic Kidney Disease documented in this encounter Additional Health Concerns Assessment Noted Time PHQ-9 Depression Total Score: 4 01/30/2019 12:13 PM CD T documented as of this encounter Care Teams Flat Knitter Helper Relationship Specialty Start Date End Date Elsewhere, Pcp PCP - General 09/17/19 documented as of this encounter
--- OUTSIDE RECORDS SUMMARY | 2022-05-25 13:14 | XMS_ITS | Encounter Summary ---
:1960 Author Organization [facility] Address [address] [place] [address] Care Team Providers Name Role Phone Elsewhere, Pcp Primary Care Provider Unavailable Encounter Details Date Type Department Care Team Description 05/12/2020 Hospital Encounter Department of [place], Ivan Samano Renal Laboratory Medicine PERINATAL SPECIALIST, C.N.P., (HCC) and Pathology, D.N.P. [facility] in [address] [place] [phone] [place] [address] [place], [place] (Work[place] [phone] Social History Tobacco Use Types Packs/Day Years [...] How often do you attend jain or rastafarian 1 to 4 times per [...] Nicholas APRN, C.N.P., D.N.P., M.S.N. [address] [place] [address] 55 [phone] (Nicolas wen) 07/31/2022 Lab Laboratory Medicine Tony Rubalcava M. B., Ch.B., M.D. [address] [place] [address] 55 [phone] (Nicolas wen) 07/31/2022 Lab Laboratory Medicine Tony Rubalcava M. B., Ch.B., M.D. [address] [place] [address] 55 [phone] (Nicolas wen) 07/31/2022 Office Visit Transplant Tony Rubalcava M.B., Mukund [place] [address] [place] [address] 55 [phone] (Wo rk) 07/31/2022 Appointment Radiology Tony Rubalcava M.B., Mukund [place] [address] [place] [address] 55 [phone] (Wo rk) 08/01/2022 Office Visit Transplant Tony Rubalcava M.B., Sydnie, Mukund [address] [place] [address] 55 [phone] (Wo rk) 08/01/2022 Clinical Support Transplant Tony Rubalcava M.B., Sydnie, Mukund [address] [place] [address] 55 [phone] (Wo rk) documented as of this encounter Visit Diagnoses Diagnosis Transplant Renal (HCC) documented in this encounter Additional Health Concerns Assessment Noted Time PHQ-9 Depression Total Score: 4 01/30/2019 12:13 PM CD T documented as of this encounter Care Teams Emt Paramedic Relationship Specialty Start Date End Date Elsewhere, Pcp PCP - General 09/17/19 documented as of this encounter
--- OUTSIDE RECORDS SUMMARY | 2022-05-25 13:14 | XMS_ITS | Encounter Summary ---
:1960 Author Organization [facility] Address [address] [place] [address] Care Team Providers Name Role Phone Elsewhere, Pcp Primary Care Provider Unavailable Encounter Details Date Type Department Care Team Description 03/04/2020 Orders Only Division of Nephrology and [place] Candelario A PRN, Hypertension in [facility] [address] [facility] 200 [place] [phone] (Wo rk) Social History Tobacco Use Types [...] How often do you attend sabianism or hoahaoism 1 to 4 times per [...] An Nicholas APRN C.N.P., D.N.P., M.S.N. [address] [place] [address] 55 [phone] (Wo rk) 07/31/2022 Lab Laboratory Medicine Tony Rubalcava M. B., Sydnie, MDebra [address] [place] [address] 55 [phone] (Wo rk) 07/31/2022 Lab Laboratory Medicine Tony Rubalcava M. B., ChBurke, MDebra [address] [place] [address] 55 [phone] (Wo rk) 07/31/2022 Office Visit Transplant Tony Rubalcava M.B., Sydnie, MDebra [address] [place] [address] 55 [phone] (Wo rk) 07/31/2022 Appointment Radiology Tony Rubalcava M.B., Ch.BMukund [place] [address] [place] [address] 55 [phone] (Wo rk) 08/01/2022 Office Visit Transplant Tony Rubalcava M.B., Mukund [place] [address] [place] [address] 55 [phone] (Wo rk) 08/01/2022 Clinical Support Transplant Tony Rubalcava M.B., Sydnie, Mukund [address] [place] [address] 55 [phone] (Wo rk) documented as of this encounter Visit Diagnoses Not on filedocumented in this encounter Additional Health Concerns Assessment Noted Time PHQ-9 Depression Total Score: 4 01/30/2019 12:13 PM CD T documented as of this encounter Care Teams Executive Administrator Relationship Specialty Start Date End Date Elsewhere, Pcp PCP - General 09/17/19 documented as of this encounter
--- OUTSIDE RECORDS SUMMARY | 2022-05-25 13:14 | XMS_ITS | Encounter Summary ---
:1960 Author Organization [facility] Address [address] [place] [address] Care Team Providers Name Role Phone Elsewhere, Pcp Primary Care Provider Unavailable Encounter Details Date Type Department Care Team Description 04/27/2020 Clinical Communication Norma Mcdonald [facility] Center for M, SUPERVISOR SHUTTLE VENEERING, C.N.P., Transplantation and D.N.P. Clinical Regeneration in [address] [place] [address] [place] [id number] [place] [address] [phone] Social History Tobacco Use Types Packs/Day Years [...] How often do you attend anabaptist or restorationism 1 to 4 times per [...] An Nicholas APRN, C.N.P., D.N.P., M.S.N. [address] [place] [address] 55 [phone] (Nicolas wen) 07/31/2022 Lab Laboratory Medicine Tony Rubalcava M. B., ChDaviBDavi, M.D. [address] [place] [address] 55 [phone] (Nicolas wen) 07/31/2022 Lab Laboratory Medicine Tony Rubalcava M. B., Ch.BDavi, M.D. [address] [place] [address] 55 [phone] (Nicolas wen) 07/31/2022 Office Visit Transplant Tony Rubalcava M.B., ChDaviBDavi, M.D. [address] [place] [address] 55 [phone] (Nicolas wen) 07/31/2022 Appointment Radiology Tony Rubalcava M.B., Mukund [place] [address] [place] [address] 55 [phone] (Wo rk) 08/01/2022 Office Visit Transplant Tony Rubalcava M.B., Mukund [place] [address] [place] [address] 55 [phone] (Wo rk) 08/01/2022 Clinical Support Transplant Tony Rubalcava M.B., Mukund [place] [address] [place] [address] [phone] (Wo behzad) documented as of this encounter Visit Diagnoses Diagnosis Transplant Renal (HCC) - Primary documented in this encounter Additional Health Concerns Assessment Noted Time PHQ-9 Depression Total Score: 4 01/30/2019 12:13 PM CD T documented as of this encounter Care Teams Sample Mounter Relationship Specialty Start Date End Date Elsewhere, Pcp PCP - General 09/17/19 documented as of this encounter
--- OUTSIDE RECORDS SUMMARY | 2022-05-25 13:14 | XMS_ITS | Encounter Summary ---
:1960 Author Organization [facility] Address [address] [place] [address] Care Team Providers Name Role Phone Elsewhere, Pcp Primary Care Provider Unavailable Reason for Visit Reason Comments Med Refill Encounter Details Date Type Department Care Team Description 02/16/2020 Refill Division of Nephrology and Phillip, Joel Bruno APRN, Med Refill Hypertension in [place], C.N.P ., M.S.N. [place] [address] [facility] [address] [place] [address] [place] [address] [phone] Social History Tobacco Use Types Packs/Day Years [...] often do you attend jehovah's witness or congregational 1 to 4 times per [...] Nicholas APRN, C.N.P., D.N.P., M.S.N. [address] [place] [address] [phone] (Nicolas wen) 07/31/2022 Lab Laboratory Medicine Tony Rubalcava M. B., ChDaviBDavi, M.Michelle. [address] [place] [address] [phone] (Nicolas wen) 07/31/2022 Lab Laboratory Medicine Tony Rubalcava M. B., ChDaviBDavi, M.D. [address] [place] [address] [phone] (Nicolas wen) 07/31/2022 Office Visit Transplant Tony Rubalcava M.B., ChBurke, MElvia. [address] [place] [address] [phone] (Nicolas wen) 07/31/2022 Appointment Radiology Tony Rubalcava M.B., Mukund Otoole [address] [place], [place] [phone] (Wo rk) 08/01/2022 Office Visit Transplant Tony Rubalcava M.B., Mukund Otoole [address] [place] [address] [phone] (Wo rk) 08/01/2022 Clinical Support Transplant Tony Rubalcava M.B., Sydnie, Mukund [address] [place] [address] [phone] (Wo rk) documented as of this encounter Visit Diagnoses Not on filedocumented in this encounter Additional Health Concerns Assessment Noted Time PHQ-9 Depression Total Score: 4 01/30/2019 12:13 PM CD T documented as of this encounter Care Teams Courtroom Deputy Relationship Specialty Start Date End Date Elsewhere, Pcp PCP - General 09/17/19 documented as of this encounter
--- OUTSIDE RECORDS SUMMARY | 2022-05-25 13:14 | XMS_ITS | Encounter Summary ---
:1960 Author Organization [facility] Address [address] [place] [address] Care Team Providers Name Role Phone Elsewhere, Pcp Primary Care Provider Unavailable Encounter Details Date Type Department Care Team Description 01/22/2020 Anesthesia Event RST ROMB MAIN OR Zaida Springer, [address] [facility] [place] [place] [address] [facility] [address] [place], [place] [phone] (Wo rk) Anesthesia Record Procedure Summary Procedure Name Responsible Anesthesia Start Anesthesia Stop Time Anesthesiologist Time EXCHANGE URETERAL Zaida Springer, 01/22/20 1605 0 1706 STENT, allograft M.D. kidney. (Right) Events Date Time Event Comment 01/22/2020 1302 1605 An Start Machine/Equipmen t Checked Infection Precautions Foll owed Procedure/Site Verified NPO Sta tus Verified Supine Standard ASA Mon itors Applied 1607 In Room 1615 An Induction 1622 An Intubation 1630 Turnover to Proceduralist 1637 Proc Start 1648 Proc Fin 1654 Turnover to ANE Staff 1654 Airway Removal Criteria Met 1654 Extubation/Airway Removed 1654 an stop data 1656 Out of Room 1706 An End I completed my h andoff to the receiving staff during [facility] we 1. Identified the patient [...] mcg/mL 50 mcg lidocaine 2% (mg) injection 100 mg propofol 10 mg/mL 170 mg propofol 10 mg/mL infusion 457.24 mg phenylephrine 100 mcg/mL injection 200 mcg ondansetron 4 mg/2 mL injection 4 mg ceFAZolin injection 2,000 mg (ANCEF) 2 g dexamethasone 4 mg/mL injection 4 mg Lactated Ringers Free Drip 200 mL Agents No agents on file. Blood No blood administrations on file. Lines, Drains, and Airways Type Details Placement Removal Hemodialysis AV Access Placement Date: 05/06/19 05/06/19 0000 by (present upon arrival to Xin Proctor, pacu) R.N. Ureteral Drain/Stent 09/16/19; 1700; Right; 09/16/19 1700 by Other (Comment) Soraya Garcia, (Internal) R.N. Hemodialysis AV Access Placement Date: 05/06/19 0000 by 04/07/22 0000 by 05/06/19; Removal Date: Harini Lim Sack ett, Colin J, 04/07/22 (duplicate LDA) R.N. R.N. Peripheral IV Placement Date: 01/22/20 1454 by 01/22/20 1726 b y 01/22/20; Placement Bethany Ortiz Bennett, Hannah L, Time: 1454; Catheter R.N. R.N. Size: 22 G; Orientation: Left; Location: Hand; Site Prep: Chlorhexidine (Preferred); Technique: Anatomical landmarks; Inserted by: [facility]; Insertion Attempts: 1; Removal Date: 01/22/20; Removal Time: 1726; Removal Reason: Per protocol Supraglottic Airway Placement Date: 01/22/20 1622 by 01/22/20 16 54 by 01/22/20; Placement Justen Roque, Luis E Glass, Time: 162 (created via [employer]KHAND [employer]ONGE [employer]AT, SETTER JUICE PACKAGING MACHINES, MNA DECKHAND SPONGE BOAT, CR NA, DNAP procedure documentation); Mask Ventilation: Easy mask; Removal Date: 01/22/20; Removal Time: 1654 documented in this encounter Social History Tobacco [...] How often do you attend hindu or orthodoxy 1 to 4 times per [...] encounter OR Notes Anesthesia Postprocedure Evaluation - Luis E Glass, CHRISTOPHER, SETTER JUICE PACKAGING MACHINES, DNAP - 01/22/2020 5:07 PM CDT Patient: hSabnam Wray Procedure Summary Date: 01/22/20 Room / Location: [address] 01 52 / [facility] in [place], [place] Anesthesia Start: 1605 Anesthesia Stop: 1706 Procedure: EXCHANGE URETERAL STENT, allograft kidney. (Right ) Diagnosis: Obstruction Ureter (Obstruction Ureter [N13.5].) Provider: Beck Galarza M.D. Responsible Provider: Zaida Springer M.D. Anesthesia Type: general ASA Status: 3 Anesthesia Type: general Last vitals Vitals Value Taken Time BP Temp 36.6 ??C 01/22/2020 5:05 PM Pulse 64 01/22/2020 5:07 PM Resp 8 01/22/2020 5:07 PM SpO2 93 % 01/22/2020 5:07 PM Vitals shown include unvalidated device data. Please [...] Hydration status: euvolemic Anesthesia Procedure Notes - Justen Roque APRN, CRNA - 01/22/2020 4:28 PM CDTAssociated Order(s): Airway Airway Date/Time: 01/22/2020 4:22 PM Performed by: Justen Roque APRN, CRNA Authorized by: Zaida Springer M.D. Patient location during procedure: OR / [...] event: no complications Anesthesia Preprocedure Evaluation - Zaida Springer M.D. - 01/22/2020 1:01 PM CDT Preprocedure Anesthesia & H&P Assessment Procedure Summary Date/Time: 01/22/20 1102 Procedure: EXCHANGE URETERAL STENT, allograft kidney. (Right ) Diagnosis: Obstruction Ureter [N13.5] Pre-op diagnosis: Obstruction Ureter [N13.5]. Location: [place] [address] / [facility] in [place], [place] Provider: Beck Galarza M.D. Pertinent components of the patient's history including current problem list, medical history, surgical history, family history, social history, medications and allergies were reviewed. Present illnessand pre-op diagnosis were confirmed. The planned surgery / procedure was verified with the patient /legal guardian. 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 (HCC) (+) Chronic Kidney Disease NOS (+) Chronic Kidney Disease Stage 4 Glomerular Filtration Rate 15-29 (HCC) (+) Chronic Kidney Disease Stage 5 Glomerular Filtration Rate Less Than 15 (HCC) (+) Hypertension And Chronic Kidney Disease Stage 1 To 4 PSYCH (+) Depression Major One Episode Full Remission (HCC) GENETICS (+) Hyperlipidemia HEME (+) Anticoagulant Therapy Other (+) Complication Kidney Transplant (HCC) OBJECTIVE PHYSICAL EXAMINATION Airway (HEENT) Mallampati: III TM Distance: >3 FB Neck ROM: Full Mouth Opening: >3 cm Upper Lip Bite Test Class: II Cardiovascular Rhythm: Regular Rate: Normal Cardiovascular Assessment: cardiovascular normal Functional Capacity: >4 METS Pulmonary Pulmonary Assessment: Clear General / Constitutional Constitutional Assessment: Obese General State of Health:: calm Neurological Neurologic Assessment:??alert and alert and oriented x 3 Dental Normal ASSESSMENT / PLAN ANESTHESIA PLAN ASA: 3 Anesthesia Plan: general Patient seen and allergies reviewed, anesthesia plan and risks discussed directly with patient /legal guardian or through an official court interpreter. Risks/Benefits/Alternatives of Blood transfusion discussed with [...] 06/01/2022 Telemedicine Pharmacy Cristopher Ansarah Yap APRN, C.NDaviPDavi, WhitneyN.P., M.S.N. [address] [place] [address] 55 [phone] (Wo rk) 07/31/2022 Lab Laboratory Medicine Tony Rubalcava M. B., Sydnie, MDebra [address] [place] [address] [phone] (Wo rk) 07/31/2022 Lab Laboratory Medicine Tony Rubalcava M. B., ChBurke, Mukund [address] [place] [address] [phone] (Wo rk) 07/31/2022 Office Visit Transplant Tony Rubalcava M.B., Sydnie, MDebra [address] [place] [address] [phone] (Wo rk) 07/31/2022 Appointment Radiology Tony Rubalcava M.B., ChBurke, MDebra [address] [place] [address] [phone] (Wo rk) 08/01/2022 Office Visit Transplant Tony Rubalcava M.B., ChBurke, MDebra [address] [place] [address] [phone] (Wo behzad) 08/01/2022 Clinical Support Transplant Tony Rubalcava M.B., Sydnie, MDebra [address] [place] [address] [phone] (Wo rk) documented as of this encounter Procedures Procedure Name Priority Date/Time Associated Diagnosis Comme nts LDA ANE Routine 01/22/2020 4:28 PM Results f or this NON-SURGICAL AIRWAY CDT procedur e are in the results section. documented in this encounter Results LDA ANE NON-SURGICAL AIRWAY (01/22/2020 4:28 PM CDT) Narrative Justen Roque APRN, CRNA - 01/22/20 20 4:28 PM CDT Justen Roque APRN, CRNA ? 01/22/2020 ??4:28 PM Airway Date/Time: 01/22/2020 4:22 PM Performed by: Justen Roque APRN, C RNA Authorized by: Zaida Springer M. D. Patient location during procedure: OR / Procedure [...] outcome: successful ?? Airway event: no complications Zaida Springer M.D. ANESTHESIA ORDERABLES documented in this encounter Visit Diagnoses Not on filedocumented in this encounter Administered Medications Inactive Administered Medications - up to 3 most recent administrations Medication Order MAR Action Action Date Dose Rate Site ceFAZolin injection 2,000 mg (ANCEF) Given 01/22/2020 4:30 PM CDT 2 g 2,000 mg (rounded from 2,485 mg = 25 mg/kg ? 99.4 kg), intravenous, Once, On Elizabeth 01/22/20 at 1530, For 1 dose, Intra-Op, Preoperatively within 1 hour prior to surgical incision If needed, reconstitute vial per package insert instructions. See IVAG for administration guidelines. , , Drug Monitoring Program: Pharmacist to adjust medication dosing based on indication and drug clearance factors., Indications: Prophylaxis, surgical dexamethasone injection (DECADRON) Given 01/22/2020 4:36 PM CDT 4 mg As needed, Starting on Elizabeth 01/22/20 at 1636, Anesthesia Intra-op fentaNYL injection (SUBLIMAZE) Given 01/22/2020 4:20 PM CDT 50 mcg intravenous, As needed, Starting on Elizabeth 01/22/20 at 1620, Anesthesia Intra-op lactated ringers New Bag 01/22/2020 4:07 PM CDT intravenous, Continuous Infusion: Per Instructions PRN, Starting on Elizabeth 01/22/20 at 1607, Anesthesia Intra-op lidocaine (PF) (cardiac) injection Given 01/22/2020 4:20 PM CDT 100 mg intravenous, As needed, Starting on Elizabeth 01/22/20 at 1620, Anesthesia Intra-op ondansetron (PF) injection (ZOFRAN) Given 01/22/2020 4:35 PM CDT 4 mg intravenous, As needed, Starting on Elizabeth 01/22/20 at 1635, Anesthesia Intra-op phenylephrine injection Given 01/22/2020 4:40 PM CDT 100 mcg intravenous, As needed, Starting on Elizabeth 01/22/20 at 1635, Anesthesia Intra-op Given 01/22/2020 4:35 PM CDT 100 mcg propofol 10 mg/mL infusion New Bag 01/22/2020 4:20 100 mcg/kg/min 59.6 mL/hr (DIPRIVAN) PM CDT intravenous, Continuous Infusion: Per Instructions PRN, Starting on Elizabeth 01/22/20 at 1620, Anesthesia Intra-op propofoL injection (DIPRIVAN) Given 01/22/2020 4:35 PM CDT 20 mg intravenous, As needed, Starting on Elizabeth 01/22/20 at 1620, Anesthesia Intra-op Given 01/22/2020 4:20 PM CDT 150 mg documented in this encounter Additional Health Concerns Assessment Noted Time PHQ-9 Depression Total Score: 4 01/30/2019 12:13 PM CD T documented as of this encounter Care Teams Highway Landscape Architect Relationship Specialty Start Date End Date Elsewhere, Pcp PCP - General 09/17/19 documented as of this encounter
--- OUTSIDE RECORDS SUMMARY | 2022-05-25 13:15 | XMS_ITS | Encounter Summary ---
:1960 Author Organization [facility] Address [address] [place] [address] Care Team Providers Name Role Phone Elsewhere, Pcp Primary Care Provider Unavailable Reason for Visit Reason Comments COVID Inquiry Encounter Details Date Type Department Care Team Description 01/16/2020 Clinical Communication Division of [place] [facility] COVID Inquiry Internal Medicine gladys Mascorro M.D. [place], [place] [address] [facility] 200 [place] [address] [phone] Social History Tobacco Use Types Packs/Day Years Used Date Smoking Tobacco: Every Day Cigarettes 0.5 45 S tarted: 08/20/1973 Smokeless Tobacco: Never Alcohol Use Standard Drinks/Week Comments Not Currently 0 (1 standard drink = 0.6 oz [...] How often do you attend mandaeism or mormon 1 to 4 times per [...] this encounter Miscellaneous Notes Telephone Encounter - Emiliana Briones - 01/16/2020 2:02 PM CDT 1. Do you have a pending COVID test because you had symptoms or exposure to someone with COVID or you have tested positive for COVID in the last 30 days? no 2. In the past 14 days, do you, anyone in the household, or anyone you have had prolonged exposure have any of the following? a. Fever = 38.0 C (100.5 F) lasting 24 hours? no b. New symptoms (Specifically: headache, cough, shortness of breath, respiratory distress, sore throat, diarrhea, nausea, vomiting, chills and repeated shaking with chills, myalgia's (muscle aches), loss of smell, or change or loss of taste sensation)? no c. Had close contact with a patient with known or possible COVID-19 in the last 14 days? no Route reply to: Scheduling Contact Number: [phone] documented in this encounter Plan of Treatment Upcoming Encounters Date Type Specialty Care Team Description 06/01/2022 Telemedicine Pharmacy An Nicholas APRN, C.N.P., D.N.P., M.S.N. [address] [place] [address] [phone] (Nicolas rk) 07/31/2022 Lab Laboratory Medicine Tony Rubalcava M. B., Ch.BDavi, M.D. [address] [place] [address] [phone] (Nicolas rk) 07/31/2022 Lab Laboratory Medicine Tony Rubalcava M. B., Ch.BDavi, M.DDavi [address] [place] [address] [phone] (Nicolas wen) 07/31/2022 Office Visit Transplant Tony Rubalcava M.B., ChBurke, MDebra [address] [place] [address] [phone] (Nicolas wen) 07/31/2022 Appointment Radiology Tony Rubalcava M.B., ChBurke, MDebra [address] [place] [address] [phone] (Nicolas wen) 08/01/2022 Office Visit Transplant Tony Rubalcava M.B., ChBurke, MDaviD. [address] [place] [address] 55 [phone] (Nicolas wen) 08/01/2022 Clinical Support Transplant Tony Rubalcava M.B., ChBurke, M.DDavi [address] [place] [address] [phone] (Nicolas wen) documented as of this encounter Visit Diagnoses Not on filedocumented in this encounter Additional Health Concerns Assessment Noted Time PHQ-9 Depression Total Score: 4 01/30/2019 12:13 PM CD T documented as of this encounter Care Teams Outpatient Facility Physical Therapist Relationship Specialty Start Date End Date Elsewhere, Pcp PCP - General 09/17/19 documented as of this encounter
--- OUTSIDE RECORDS SUMMARY | 2022-05-25 13:15 | XMS_ITS | Encounter Summary ---
:1960 Author Organization [facility] Address [address] [place] [address] Care Team Providers Name Role Phone Elsewhere, Pcp Primary Care Provider Unavailable Encounter Details Date Type Department Care Team Description 12/30/2019 Clinical Communication Department of Urology Idalia Bonds in Damion Hernandez M.D. [place] [address] [address] [facility] 200 [place] [address] [phone] Social History Tobacco Use Types Packs/Day Years [...] How often do you attend religion or anglican 1 to 4 times per [...] this encounter Miscellaneous Notes Telephone Encounter - Idalia Bnods M.D. - 12/30/2019 10:45 AM CDT Spoke with patient regarding her stent exchange. She said that she is available on given her M/W/F dialysis schedule. I informed her that she will need undergo COVID testing 2 days prior to surgery and will need medical clearance as well. This can be coordinated with her COVID testing if shedoes need to come in for a bplj-aq-kxph visit. I also discussed the need for urine studies 10-14 days prior to the procedure. She is making urine, roughly 350-500 cc per day from her allograft kidney. I listed the patient for 01/22/2020. Our computer processing scheduler will reach out to arrange for testing and complete the COVID screening. Idalia Bonds M.D. Urology Chief Service Pager [phone] documented in this encounter Plan of Treatment Upcoming Encounters Date Type Specialty Care Team Description 06/01/2022 Telemedicine Pharmacy An Nicholas APRN, C.N.P., D.N.P., M.S.N. [address] [place] [address] [phone] (Wo rk) 07/31/2022 Lab Laboratory Medicine Tony Rubalcava M. B., Sydnie, Mukund [address] [place] [address] [phone] (Wo rk) 07/31/2022 Lab Laboratory Medicine Tony Rubalcava M. B., Sydnie, Mukund [address] [place] [address] [phone] (Wo rk) 07/31/2022 Office Visit Transplant Tony Rubalcava M.B., Sydnie, Mukund [address] [place] [address] [phone] (Wo rk) 07/31/2022 Appointment Radiology Tony Rubalcava M.B., Sydnie, Mukund [address] [place] [address] [phone] (Wo rk) 08/01/2022 Office Visit Transplant Tony Rubalcava M.B., Sydnie, MDebra [address] [place] [address] [phone] (Wo rk) 08/01/2022 Clinical Support Transplant Tony Rubalcava M.B., ChBurke, MDebra [address] [place] [address] [phone] (Wo rk) documented as of this encounter Visit Diagnoses Not on filedocumented in this encounter Additional Health Concerns Assessment Noted Time PHQ-9 Depression Total Score: 4 01/30/2019 12:13 PM CD T documented as of this encounter Care Teams Wood Engraver Relationship Specialty Start Date End Date Elsewhere, Pcp PCP - General 09/17/19 documented as of this encounter
--- OUTSIDE RECORDS SUMMARY | 2022-05-25 13:15 | XMS_ITS | Encounter Summary ---
:1960 Author Organization [facility] Address [address] [place] [address] Care Team Providers Name Role Phone Elsewhere, Pcp Primary Care Provider Unavailable Encounter Details Date Type Department Care Team Description 01/20/2020 Hospital Encounter Department of Astrid Riojas Therapy Laboratory Medicine Cristian Mascorro M.D. and Pathology, [address] [place] [address] in [facility] [address] [place] [phone] [place] [address] (Work) [place], [place] [phone] (Fax) [phone] Social History Tobacco Use Types Packs/Day Years [...] 12/23/2021 relatives? How often do you attend yazdanism or christian 1 to 4 times per year 12/23/2021 services? Do you belong to any clubs or organizations such No 12/23/2021 as yazdanism groups, unions, fraternal or athletic groups, or [...] % topically daily as cream needed (Eczema). cefdinir (OMNICEF) 300 Take 1 capsule (300 [...] (2 mg total) every evening. warfarin (COUMADIN) 1 Take as directed per 100 tablet 07/2002/16/2020 mg tablet After Visit Summary. warfarin (COUMADIN) 2.5 On 09/19, take 5 mg 75 tablet 08/2202/16/2020 mg tablet daily then check INR 2/3 documented as of this encounter Plan of Treatment Upcoming Encounters Date Type Specialty Care Team Description 06/01/2022 Telemedicine Pharmacy An Nicholas APRN, C.N.P., D.N.P., M.S.N. [address] [place] [address] 55 [phone] (Wo rk) 07/31/2022 Lab Laboratory Medicine Tony Rubalcava M. B., Ch.B., M.D. [address] [place] [address] [phone] (Wo rk) 07/31/2022 Lab Laboratory Medicine Tony Rubalcava M. B., Ch.B., M.D. [address] [place] [address] [phone] (Wo rk) 07/31/2022 Office Visit Transplant Tony Rubalcava M.B., Mukund Otoole [address] [place] [address] [phone] (Wo rk) 07/31/2022 Appointment Radiology Tony Rubalcava M.B., Mukund Otoole [address] [place] [address] [phone] (Wo rk) 08/01/2022 Office Visit Transplant Tony Rubalcava M.B., Mukund Otoole [address] [place] [address] [phone] (Wo rk) 08/01/2022 Clinical Support Transplant Tony Rubalcava M.B., Sydnie, Mukund [address] [place] [address] [phone] (Wo rk) documented as of this encounter Procedures Procedure Name Priority Date/Time Associated Diagnosis Comme nts PROTHROMBIN TIME Routine 01/20/2020 2:52 PM Anticoagulant Ther apy Results for this (PT), P CDT procedure are i n the results section. documented in this encounter Results (ABNORMAL) Prothrombin Time (PT) (01/20/2020 2:52 PM CDT) [facility] Method Time Signature Prothrombin 15.0 (H) 9.4 - 12.5 01/20/2020 DTL Time, P sec 3:41 PM CDT INR 1.4 0.9 - 1.1 01/20/2020 DTL 3:41 PM CDT Comment: ----ADDITIONAL INFORMATION---- Standard intensity warfarin therapeutic range: 2.0 to 3.0 ?? High intensity warfarin therapeutic rang e: 2.5 to 3.5 Specimen Anatomical Collection Method Collection Time Receive d Time (Source) Location / / Volume Laterality Blood (Blood, 01/20/2020 2:52 PM 01/20/20 20 3:16 Venous) CDT PM CDT Cristian Riojas M.D. LAB BLOOD ADD-ON Performing Organization Address City/State/ZIP Code Phon e Number [facility] - [address] [place], [place] [address] [facility] [place] [address] Laboratories-[facility] [address] documented in this encounter Visit Diagnoses Diagnosis Anticoagulant Therapy documented in this encounter Additional Health Concerns Infection Onset Date Last Indicated Resolved Time COVID19 Pending 01/20/2020 01/20/2020 01/21/2020 6:52 AM CDT Assessment Noted Time PHQ-9 Depression Total Score: 4 01/30/2019 12:13 PM CD T documented as of this encounter Care Teams Sampling Expert Relationship Specialty Start Date End Date Elsewhere, Pcp PCP - General 09/17/19 documented as of this encounter
--- OUTSIDE RECORDS SUMMARY | 2022-05-25 13:15 | XMS_ITS | Encounter Summary ---
:1960 Author Organization [facility] Address [address] [place] [address] Care Team Providers Name Role Phone Elsewhere, Pcp Primary Care Provider Unavailable Encounter Details Date Type Department Care Team Description 01/22/2020 Hospital Encounter [facility] Beck Galarza, [address] [place], [place] [address]Davi [place], [place] [address] [place] [phone] [place], [place] [phone] (Wo rk) Social History Tobacco Use Types [...] How often do you attend muslim or presybeterian 1 to 4 times per [...] Sign Reading Time Taken Comments Blood Pressure 168/91 01/22/2020 5:35 PM CDT Pulse 66 01/22/2020 5:35 PM CDT Temperature 36.6 ??C (97.9 ??F) 01/22/2020 5:35 PM CDT Respiratory Rate 15 01/22/2020 5:35 PM CDT Oxygen Saturation 93% 01/22/2020 5:35 PM CDT Inhaled Oxygen Concentration - - [...] On 09/19, take 5 mg 75 tablet 11 08/2202/16/2020 mg tablet daily then check INR 09/22 cefdinir (OMNICEF) 300 Take 1 capsule (300 [...] - Primary * Vicente Robledo M.D. - Air Dispatcher * Efren Jones M.D. - Air Dispatcher * Jakub Ray M.D., Ph.D. * Renato [...] Implant Name Type Inv. Item Serial No. Landing Gear Mechanic Lot No. LRB No. Used Action STNT URET INL [id number] - [id number] - [id number] Ureteral Stent STNT URET INL [id number] [employer] [id number] Right 1 Implanted Efren Jones M.D. documented in this encounter Plan of Treatment Upcoming Encounters Date Type Specialty Care Team Description 06/01/2022 Telemedicine Pharmacy An Nicholas APRN C.N.P., D.N.P., M.S.N. [address] [place] [address] [phone] (Wo rk) 07/31/2022 Lab Laboratory Medicine Tony Rubalcava M. B., Sydnie, Mukund [address] [place] [address] [phone] (Wo rk) 07/31/2022 Lab Laboratory Medicine Tony Rubalcava M. B., Sydnie, Mukund [address] [place] [address] [phone] (Wo rk) 07/31/2022 Office Visit Transplant Tony Rubalcava M.B., Sydnie, MDebra [address] [place] [address] [phone] (Wo rk) 07/31/2022 Appointment Radiology Tony Rubalcava M.B., ChBurke, Mukund [address] [place] [address] [phone] (Wo rk) 08/01/2022 Office Visit Transplant Tony Rubalcava M.B., Sydnie, Mukund [address] [place] [address] [phone] (Wo rk) 08/01/2022 Clinical Support Transplant Tony Rubalcava M.B., Sydnie, MDebra [address] [place] [address] [phone] (Wo rk) documented as of this encounter Procedures Procedure Name Priority Date/Time Associated Comments Diagnosis FL FLUORO LESS RAD - Routine 01/22/2020 5:11 Results f or this THAN 1 HOUR (most inpatients PM CDT procedure a re in and all the results outpatients) section. 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 Idalia WESTFALL FLUOROSCOPY PROCEDURES Performing Organization Address City/State/ZIP Code Phon e Number 152 HOS LOS RST pH (01/22/2020 2:53 PM CDT) P athologist Signature pH 7.42 7.35 - 7.45 01/22/2020 3:06 STMA pH PM CDT Specimen Anatomical Collection Method Collection Time Receive d Time (Source) Location / / Volume Laterality Blood 01/22/2020 2:53 PM 0 3:01 CDT PM CDT Zaida Springer M.D. LAB HISTORICAL ORDERS Performing Organization Address City/[facility]/ZIP Code Phon e Number [facility] - [address] [place], [place] [address] [place] [address] [facility] [address] [facility] Glucose, Whole Blood (01/22/2020 2:53 PM CDT) athologist Signature Glucose 85 70 - 140 01/22/2020 3:06 STMA mg/dL PM CDT Specimen Anatomical Collection Method Collection Time Receive d Time (Source) Location / / Volume Laterality Blood (Blood, 01/22/2020 2:53 PM 01/22/20 20 3:01 Venous) CDT PM CDT Zaida Springer M.D. LAB BLOOD TROPONIN Performing Organization Address City/[facility]/ZIP Code Phon e Number [facility] - [address] [place], [place] [address] [place] [address] [facility] [address] Potassium, Blood (01/22/2020 2:53 [...] Address City/State/ZIP Code Phon e Number [facility] - [address] [place], [place] [address] 05 [place] [address] [place] [address] [facility] Sodium, B (01/22/2020 2:53 PM CDT) athologist Signature Sodium, B 138 135 - 145 01/22/2020 3:06 STMA mmol/L PM CDT Specimen Anatomical Collection Method Collection Time Receive d Time (Source) Location / / Volume Laterality Blood (Blood, 01/22/2020 2:53 PM 01/22/20 20 3:01 Venous) CDT PM CDT Zaida Springer M.D. LAB BLOOD NON ADD-ON Performing Organization Address [facility] Phon e Number [facility] - [address] [place], [place] [address] [place] [phone] Laboratories-[address] Calcium, Ionized (01/22/2020 2:53 PM CDT) athologist Signature Calcium, 5.12 4.65 - 5.30 01/22/2020 ST[facility] Ionized, B mg/dL 3:06 PM CDT Specimen Anatomical Collection Method Collection Time Receive d Time (Source) Location / / Volume Laterality Blood (Blood, 01/22/2020 2:53 PM 01/22/20 20 3:01 Venous) CDT PM CDT Zaida Springer M.D. LAB BLOOD NON ADD-ON Performing Organization Address City/[facility] Phon e Number [facility] - [address] [place], [place] [address] [place] [address] CBC without Differential (01/22/2020 2:53 PM CDT) [...] Address City/State/ZIP Code Phon e Number [facility] - [address] [place], [place] [address] [facility] [place] [address] [facility] [address] ECG 12 Lead (01/22/2020 2:25 PM CDT) P athologist Signature Ventricular Rate 66 BPM MUSE ECG/Min [place] Interval 194 ms MUSE QRSD Interval 92 ms MUSE QT Interval 428 ms MUSE QTC Interval 448 ms MUSE P [place] 39 degrees MUSE R [place] -25 degrees MUSE T Wave [place] -5 degrees MUSE Specimen Anatomical Collection Method [...] Ureter - Primary documented in this encounter Admitting Diagnoses Diagnosis [...] , Starting on Elizabeth 01/22/20 at 1411, Pre-Op, Peripheral Intravenous Catheter and [...] (Given - Provider: Luis E Glass APRN, BUILDING SPECIALIST, DNAP) 2,000 mg (rounded from 2,485 mg [...] documented as of this encounter Care Teams Licensed Sales Producer Relationship Specialty Start Date End Date Elsewhere, Pcp PCP - General 09/17/19 documented as of this encounter
--- OUTSIDE RECORDS SUMMARY | 2022-05-25 13:15 | XMS_ITS | Encounter Summary ---
:1960 Author Organization [facility] Address [address] [place] [phone] Care Team Providers Name Role Phone Elsewhere, Pcp Primary Care Provider Unavailable Reason for Visit Reason Comments Pre-op Exam Outpatient (Routine) - Closed Specialty Diagnoses / Procedures Referred By Contact Refer red To Contact Internal Medicine / Diagnoses Obstruction Ure[facility] M.DD[facility] Medicine [address] [place] [phone] Referral ID Status Reason Start Date Expiration Date Visits Requ ested Visits Authorized [id number] Closed 12/30/2019 12/29/2020 1 1 Encounter Details Date Type Department Care Team Description 01/20/2020 Comprehensive Visit Division of Anisa Bonds M.D. [address] [place] [phone] Preanesthetic Medical Exam (Primary Dx); General Internal Cristian Riojas M.D. 200 [place] [phone] Obstruction Ureter; Medicine in Anticoagulant T herapy; [place], Chronic Failure Renal End Stage Renal Disease Dialysis Dependent (HCC); [place] Hyperlipidemia; [address] [facility] Transplant Renal (HCC) [place] [phone] Social History Tobacco Use Types Packs/Day Years [...] How often do you attend uatsdin or tenriism 1 to 4 times per [...] Sign Reading Time Taken Comments Blood Pressure 133/83 01/20/2020 12:38 PM CDT Average Pulse 74 01/20/2020 12:38 PM CDT Temperature 36.9 ??C (98.4 ??F) 01/20/2020 12:38 PM CDT Respiratory Rate - - Oxygen Saturation - - Inhaled Oxygen Concentration - - Weight 99.4 kg (219 lb 2.2 oz) 01/20/2020 12:38 PM CDT Height 165.1 cm (5' 5) 01/20/2020 12:38 PM CDT Body Mass Index 36.47 01/20/2020 12:38 PM CDT documented in this encounter Consult Notes Cristian Riojas M.D. - 01/20/2020 1:30 PM CDT GENERAL INTERNAL MEDICINE HOWIE CONSULT HISTORY OF PRESENT ILLNESS Shabnam Wray is a 59 y.o. female seen in consultation for a preanesthetic medical evaluation. 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 and current right brachial axillary AV graft on warfarin. She was recently hospitalized from 09/16 to 09/19 where she underwent ureteral stent exchange and tunneled dialysis catheter removal under general anesthesia. There were no complications with the procedure. She was admitted for anticoagulation management. She is on warfarin due to a history of multiple thrombosed AV fistula and a chronic right IJ thrombus. She currently has dialysis access with a right brachiocephalic AV graft, and she remains on warfarin with a goal INR 2.5-3.5 to preserve this access. She is currently doing well without any chest pain or dyspnea. She is able to walk up a flight of stairs without difficulty. She has had some lability of her INR recently, with values ranging from approximately 4-7 in November 2019. RISK STRATIFICATION Procedure planned: Ureteral stent exchange Surgeon: Geovanni Santo necessity of procedure: Elective. Cardiac risk of procedure: Low Risk (cardiac risk <1%) Functional status: Class II: Able to perform 5-7 METS Cardiovascular History Prior SC: No CABG: No Non-invasive stress testing: DSE 01/28/19 negative for myocardial ischemia Echocardiography: 04/11/19: EF 66%, grade 1 diastolic dysfunction, RVSP 28, Aortic sclerosis, borderline ascending aorta dilation (39 mm). Coronary angiography: No Pacemaker/AICD/BLUEPRINT ASSEMBLER-D: No Pulmonary History Asthma/COPD: No MIRANDA: STOP-BANG 4 PFTs: None Smoking: Approximately 20 pack year, currently 6 cigarettes per day Additional Relevant Past History Renal insufficiency: ESRD on IHD MWF Liver disease: None Cerebrovascular disease: None Seizure: None Diabetes: None Communicable diseases: None Glaucoma: None Allergies: Erythropoietin: Vomiting, latex: Eczema, unknown pain medicine: Nausea Personal or family history of anesthesia complication: None Mallampati: II History of bleeding diathesis: None Anticoagulant use: Warfarin History of venous thromboembolism/hypercoagulability: Multiple AV fistula thromboses, chronic right IJ thrombus Corticosteroid use: Prednisone 5 mg Alcohol use: None Cervical spine disease: None Implants/Appliances: Ureteral stent Revised [Mckoy] Cardiac Risk Index (RCRI) 1. Ischemic heart disease: No 2. Heart failure: No 3. Cerebrovascular disease (stroke or TIA): No 4. Diabetes requiring perioperative insulin use: No 5. CKD (stage 3 or creatinine >2.0) : Yes 6. High-risk surgery type: No (e.g., supra-inguinal vascular surgery, intra-peritoneal surgery, or intra- thoracic surgery) RCRI Score = 1 (1.0% estimated risk of avelina-operative cardiac , non-fatal SC, or non-fatal cardiac arrest) May Score: 0.4 % risk of myocardial infarction or cardiac arrest, intraoperatively or up to 30 days post-op Caprini Score: Not applicable PAST MEDICAL HISTORY Past Medical History: Diagnosis Date ??? Apnea Sleep Obstructive ??? Blood Transfusion No Diagnosis 2007 ??? Depressive Disorder ??? Dialysis Dependent (HCC) ??? Eczema 1965 ??? Gastroesophageal Reflux Disease NOS ??? Hyperlipidemia 2017 ??? Hypertension NOS ??? Other Specified Health Status 2008 Kidney failure ??? Renal Disease ??? Transplant Renal (HCC) ??? Unspecified Amblyopia Bilateral 1964 PAST SURGICAL HISTORY Past Surgical History: Procedure Laterality Date ??? CREATION ARTERIOVENOUS FISTULA UPPER EXTREMITY - OTHER Right 05/06/2019 Procedure: Right arm brachio-basilic AV graft using 6mm propaten graft; Surgeon: Guillermo Yu M.B.BDaviSDavi; Location: [facility] OR ??? CREATION OF BRACHIOBASILIC ARTERIOVENOUS FISTULA WITH TRANSPOSITION Left 01/09/2017 Creation of brachiobasilic arteriovenous fistula with transposition ??? CYSTOSCOPY N/A 06/12/2017 Cystoscopy ??? CYSTOURETHROSCOPY N/A 05/14/2018 Procedure: CYSTOURETHROSCOPY; Surgeon: Geraldo Spear M.D.; Location: [facility] 07 OR ??? EMBOLECTOMY ARTERIOVENOUS FISTULA Right 05/31/2019 Procedure: Right brachio-axillary arterio-venous graft thromboembolectomy, Balloon angioplasty of venous anastomosis; Surgeon: Guillermo Yu M.B.B.S.; Location: [facility] OR ??? EXCHANGE URETERAL [...] M.D., Ph.D.; Location: [facility] OR ??? FISTULOGRAM UPPER EXTREMITY WITH OR WITHOUT INTERVENTION Right 05/31/2019 Procedure: FISTULOGRAM WITH OR WITHOUT INTERVENTION UPPER EXTREMITY; Surgeon: Gulilermo uY M.B.BDaviSDavi; Location: [facility] OR ??? HERNIA REPAIR ??? HYSTERECTOMY 2006 no documentation ??? ORGAN TRANSPLANT Apr 12 ? PERCUTANEOUS ANTERGRADE ENDOPYELOTOMY Right 12/17/2014 [...] PLACEMENT 12/17/2014 balloon dilation and stent placement FAMILY HISTORY Reviewed and non contributory CURRENT MEDICATIONS Current Outpatient Medications Medication Sig Dispense Refill ??? acetaminophen (TYLENOL) 500 mg tablet Take 2 tablets (1,000 mg total) by mouth every 6 (six) hours as needed for pain. ??? Bystolic 10 mg tablet TAKE 1 TABLET(10 MG) BY MOUTH DAILY 90 tablet 3 ??? calcium carbonate (TUMS) 500 mg (200 mg calcium) chewable tablet Chew 2 tablets 2 (two) times a day with meals. Lunch and dinner. ??? cefdinir (OMNICEF) 300 mg capsule Take 1 capsule (300 mg total) by mouth every 12 (twelve) hoursfor 7 days. 14 capsule 0 ??? gabapentin (NEURONTIN) 100 mg [...] 11 ??? mycophenolate (CELLCEPT) 250 mg capsule Take 1 capsule (250 mg total) by mouth 2 (two) times a day. Do not break, cut, or open capsules. 180 capsule 3 ??? predniSONE (DELTASONE) 5 mg tablet TAKE 1 TABLET(5 MG) BY MOUTH DAILY 90 tablet 0 ??? rosuvastatin (CRESTOR) 5 mg tablet TAKE 1 TABLET BY MOUTH DAILY. 90 tablet 3 ??? sevelamer (RENVELA) 800 mg tablet Take 800 mg by mouth daily with breakfast. Take with largest meal of the day ??? tacrolimus (PROGRAF) 1 mg capsule Take 3 capsules (3 mg total) by mouth every morning AND 2 capsules (2 mg total) every evening. 450 capsule 3 ??? warfarin (COUMADIN) 1 mg tablet Take as directed per After Visit Summary. 100 tablet 11 ??? warfarin (COUMADIN) 2.5 mg tablet On 09/19, take 5 mg daily then check INR 2/3 (Patient taking differently: On 09/19, take 5 mg daily then check INR 2/3 Takes 2.5mg on Sundays and Sunday. Takes 5mg on Sunday, Sunday, , Sunday, and Sunday. ) 75 tablet 11 No current facility-administered medications for this visit. ALLERGIES Allergies Allergen Reactions ??? Epoetin Rolando GI intolerance ERYTHROPOIETIN- vomiting ??? Latex Other (see comments) Eczema ??? Pain Medicine Other (see comments) Patient unsure of what medication it was. Had a pain med given intravenously and got very nauseous REVIEW OF SYSTEMS All systems reviewed and otherwise negative unless otherwise noted. Specifically, no fevers, chills or sweats. No chest pain and no increasing shortness of breath on exertion. PHYSICAL EXAM Vitals: BP 133/83 (BP Location: Left arm, Patient Position: Sitting, Cuff Size: Large) Comment: Average Pulse 74 Temp 36.9 ??C (Oral) Ht 165.1 cm Wt 99.4 kg BMI 36.47 kg/m?? General Appearance: Pleasant, well-appearing not in acute distress. Ambulates to the exam table without any significant difficulty. HEENT: Intubation - Mallampati Class: II (hard and soft palate, upper portion of tonsils anduvula visible) Neck: Supple, no lymphadenopathy, no thyromegaly appreciated. JVP difficult to appreciate Heart: Normal S1, S2 regular rate rhythm without murmurs rubs or gallops Lungs: Clear bilaterally with good air entry to both lung bases Abdomen: Soft, non-tender, non distended Extremities: No lower extremity edema, moves all 4 without significant difficulty. LABORATORY STUDIES/EKG: Reviewed and unremarkable ASSESSMENT / PLAN Shabnam Wray is a 59 y.o. female seen in consultation for a preanesthetic medical evaluation. 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 and current right brachial axillary AV graft on warfarin. Shabnam Wray is considered a low risk patient undergoing a low risk procedure. Her physical activity is currently above 4 mets and she currently denies any issues. She is medically optimized and requires no further cardiac testing. We did discuss with urology a today that they are okay performing the stent exchange with a therapeutic INR. She has had labile INRs in the past, so we will check an INR today. If it is therapeutic then no need for further checked prior to procedure. She had seen vascular medicine as an inpatient in May, and at that time had been recommended to be on anticoagulation for an additional 6 months along with lifelong aspirin. She should be seen in Thrombophilia Clinic at some point to determine duration of anticoagulation. 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 If therapeutic no further testing needed ADDENDUM: INR was 1.4. Safe from a procedure standpoint, but she needs to be 2.5-3.5 to be at her goal. Sent her a portal message to discuss this with her providers that dose her warfarin. It would also be of some use for her to be seen in the thrombophilia clinic for discussion of ongoing anticoagulation (prior vascular medicine recs in May 2019 had recommended 6 months of anticoagulation and life long aspirin). -Medications to HOLD morning of surgery: Sevelamer, Dialyvite -All other medications can be continued per current dosing. -Recommend consultation with thrombophilia clinic. Ready to learn, no apparent learning barriers were identified; learning preferences include listening. Explained diagnosis and treatment plan; patient/child/caregiver expressed understanding of the content. This case was discussed with supervising dynamics ax consultant, Dr. Sterling. I spent a total of 45 minutes in the evaluation of this patient, over half of which was spent in counseling and coordination of care. Cristian Riojas PGY-3 Internal Medicine Ty Sterling M.D. - 01/20/2020 1:30 PM CDT REFERRAL SOURCE Idalia Bonds M.D. This note is in collaboration with Dr. Cristian Riojas, who is a licensed and billable senior resident. The preoperative history, examination, risk stratification and perioperative recommendations were discussed in detail. Please see Dr. Riojas's note. The patient is a medically complex 59-year-old woman with ESRD, failed kidney transplant on IHD, chronic immunosuppression, chronic IJ thrombus, hypertension, nicotine dependence and hyperlipidemia, also notably, admission to Vascular Surgery in the fall for AV graft thrombosis (multiple failed fistulas) for which lifelong aspirin was recommended, along with warfarin potentially shorter term,goal INR 2.5-3.5, with thrombophilia consultation suggested. She has history of UPJ obstruction and is scheduled for a ureteral stent exchange on January 21. From a preoperative standpoint, she has not had any recent cardiac symptoms, and does not have knowncardiac disease, although multiple risk factors are noted. Her functional capacity is an equivocal 4METS, and she is independent. She had a TTE in March of 2019 demonstrating grade 1 of 4 diastolic dysfunction, EF 66%, no regional such. Given asymptomatic status, RCRI of 1, her overall risk for a major adverse cardiac event (MACE) is low, in the 1% range, and we feel she is optimized to proceed without further testing. Her INR has been somewhat labile on most recent outside lab reports, and we will check an INR preoperatively. We have spoken with the surgery team this afternoon, and they are comfortable proceeding with a therapeutic INR. We would recommend she be seen in the thrombophilia clinic for discussion regarding need for ongoing anticoagulation. The other preoperative recommendations, including medication management, per the note of Dr. Riojas. documented in this encounter Plan of Treatment Upcoming Encounters Date Type Specialty Care Team Description 06/01/2022 Telemedicine Pharmacy An Nicholas APRN C.N.P., D.N.P., M.S.N. [address] [place] [phone] (Wo rk) 07/31/2022 Lab Laboratory Medicine Tony Rubalcava M. B., Sydnie, MElvia. [address] [place] [address] [phone] (Nicolas rk) 07/31/2022 Lab Laboratory Medicine Tony Rubalcava M. B., Sydnie, MDebra [address] [place] [address] [phone] (Nicolas rk) 07/31/2022 Office Visit Transplant Tony Rubalcava M.B., ChBurke, MDebra [address] [place] [address] [phone] (Nicolas wen) 07/31/2022 Appointment Radiology Tony Rubalcava M.B., Sydnie, MElvia. [address] [place] [address] [phone] (Wo behzad) 08/01/2022 Office Visit Transplant Tony Rubalcava M.B., Mukund [place] [address] [place] [address] [phone] (Wo rk) 08/01/2022 Clinical Support Transplant Tony Rubalcava M.B., Mukund [place] [address] [place], [place] [phone] (Wo rk) documented as of this encounter Results (ABNORMAL) Prothrombin Time (PT) (01/20/2020 2:52 PM CDT) [facility] gist Method Time Signature Prothrombin 15.0 (H) 9.4 [...] Address City/State/ZIP Code Phon e Number [facility] - [address] [place] [phone] [facility] [place] [address] Laboratories[facility] [address] [facility] documented in this encounter Visit Diagnoses Diagnosis Preanesthetic Medical Exam - Primary Obstruction Ureter Anticoagulant Therapy Chronic Failure Renal End Stage Renal Di sease Dialysis Dependent (HCC) Hyperlipidemia Transplant Renal (HCC) documented in this encounter Additional Health Concerns Infection Onset Date Last Indicated Resolved Time COVID19 Pending 01/20/2020 01/20/2020 01/21/2020 6:52 AM CDT Assessment Noted Time PHQ-9 Depression Total Score: 4 01/30/2019 12:13 PM CD T documented as of this encounter Care Teams Process Control Operator Relationship Specialty Start Date End Date Elsewhere, Pcp PCP - General 09/17/19 documented as of this encounter
--- OUTSIDE RECORDS SUMMARY | 2022-05-25 13:15 | XMS_ITS | Encounter Summary ---
:1960 Author Organization [facility] Address [address] [place] [address] Care Team Providers Name Role Phone Elsewhere, Pcp Primary Care Provider Unavailable Encounter Details Date Type Department Care Team Description 01/01/2020 Hospital Encounter Department of Soraya Lu Renal Laboratory Medicine M, PJacy-C., M.S. ([facility]) and Pathology, [address] [place] [address] in [place] [phone] [place] [phone] [place] [address] (Work) [place] [address] Social History Tobacco Use Types [...] How often do you attend adventist or denominational 1 to 4 times per [...] Nicholas APRN, C.N.P., D.N.P., M.S.N. [address] [place] [address] [phone] (Nicolas wen) 07/31/2022 Lab Laboratory Medicine Tony Rubalcava M. B., Ch.B., M.D. [address] [place] [address] 55 [phone] (Wo behzad) 07/31/2022 Lab Laboratory Medicine Tony Rubalcava M. B., Ch.B., M.D. [address] [place] [address] 55 [phone] (Wo behzad) 07/31/2022 Office Visit Transplant Tony Rubalcava M.B., Muk[place] [address] [place] [address] 55 [phone] (Wo rk) 07/31/2022 Appointment Radiology Tony Rubalcava M.B., [place] [address] [place] [address] [phone] (Wo rk) 08/01/2022 Office Visit Transplant Tony Rubalcava M.B., [place] [address] [place] [address] [phone] (Wo rk) 08/01/2022 Clinical Support Transplant Tony Rubalcava M.B., [place] [address] [place] [address] [phone] (Nicolas wen) documented as of this encounter Procedures Procedure Name Priority Date/Time Associated Comments Diagnosis TACROLIMUS LEVEL, B Routine 03/22/2020 5:30 AM Transplant Jessica l Results for this CDT (HCC) procedure are i n the results section. documented in this encounter Results Tacrolimus, B (03/22/2020 5:30 AM CDT) P athologist Signature Tacrolimus, B 9.8 5.0-15.0 03/27/2020 [facility] (Trough) 1:00 PM CDT ng/mL Comment: ----ADDITIONAL INFORMATION---- Target steady-state trough concentration s vary depending on the type of transplant, concomitant immunosuppressio n, clinical/institutional protocols, and time post-transplant. Results should be interpreted in conjunction with this clinical information and any physic al signs/symptoms of rejection/toxicity. Testing performed by Liquid Chromatograp hy-Tandem Mass Spectrometry (LC-MS/MS). This test was developed and its performa nce characteristics determined by [facility] in a manner consistent with CLIA requirements. This test has not been cleared or approved by the U.S. Jina d and Drug Administration. Specimen Anatomical Collection Method Collection Time Receive d Time (Source) Location / / Volume Laterality Blood (Blood, 03/22/2020 5:30 AM 03/27/20 20 Venous) CDT 10:21 AM CDT Resulting Agency Comment Mailed In Specimen Soraya Lu P.A.-C., M.S. LAB BLOOD NON ADD-ON Performing Organization Address City/State/ZIP Code Phon e Number [facility] [address] [place] [address] SUPPORT [facility] [place] [address] Laboratory Medicine and Pathology [address] [place] documented in this encounter Visit Diagnoses Diagnosis Transplant Renal (HCC) documented in this encounter Additional Health Concerns Assessment Noted Time PHQ-9 Depression Total Score: 4 01/30/2019 12:13 PM CD T documented as of this encounter Care Teams Watch Hairspring Assembler Relationship Specialty Start Date End Date Elsewhere, Pcp PCP - General 09/17/19 documented as of this encounter
--- OUTSIDE RECORDS SUMMARY | 2022-05-25 13:15 | XMS_ITS | Encounter Summary ---
:1960 Author Organization [facility] Address [address] [place] [address] Care Team Providers Name Role Phone Elsewhere, Pcp Primary Care Provider Unavailable Reason for Visit Reason Comments COVID Nurse Line Encounter Details Date Type Department Care Team Description 12/30/2019 Clinical Communication RST Idalia Ventura Nurse Line [address] [facility] Muk[place], [place] [address] [place] [address] [place] [address] Social History Tobacco Use Types Packs/Day Years [...] often do you attend oriental orthodox or gnosticist 1 to 4 times per [...] this encounter Miscellaneous Notes Telephone Encounter - Vida Chen - 12/30/2019 11:11 AM CDT 1. In the past 14 days, have you been tested for COVID-19 with a positive or pending result? no 2. In the past 14 days, do you, anyone in the household, or anyone you have had prolonged exposure have (any of the following)? a. Fever = 38.0 C (100.5 F) lasting 24 hours? no b. New symptoms (Specifically: cough, shortness of breath, respiratory distress, sore throat, diarrhea, chills, myalgia's (muscle aches), loss of smell, or change or loss of taste sensation)? no c. Had close contact with persons who are under quarantine or isolation for COVID? no d. Had close contact with a patient with known or possible COVID-19? no Route reply to: Scheduling Contact Number: documented in this encounter Plan of Treatment Upcoming Encounters Date Type Specialty Care Team Description 06/01/2022 Telemedicine Pharmacy An Nicholas APRN, C.N.P., D.N.P., M.S.N. [address] [place] [phone] (Wo rk) 07/31/2022 Lab Laboratory Medicine Tony Rubalcava M. B., Sydnie, MDebra [address] [place] [phone] (Wo rk) 07/31/2022 Lab Laboratory Medicine Tony Rubalcava M. B., [place], [place] [address] [place] [address] [phone] (Wo rk) 07/31/2022 Office Visit Transplant Tony Rubalcava M.B., [place], [place] [address] [place] [address] [phone] (Wo rk) 07/31/2022 Appointment Radiology Tony Rubalcava M.B., Sydnie, MDebra [address] [place] [address] [phone] (Wo rk) 08/01/2022 Office Visit Transplant Tony Rubalcava M.B., Sydnie, MDebra [address] [place] [address] [phone] (Wo rk) 08/01/2022 Clinical Support Transplant Tony Rubalcava M.B., Sydnie, MDebra [address] [place] [address] [phone] (Wo rk) documented as of this encounter Visit Diagnoses Not on filedocumented in this encounter Additional Health Concerns Assessment Noted Time PHQ-9 Depression Total Score: 4 01/30/2019 12:13 PM CD T documented as of this encounter Care Teams Cell Builder Relationship Specialty Start Date End Date Elsewhere, Pcp PCP - General 09/17/19 documented as of this encounter
--- OUTSIDE RECORDS SUMMARY | 2022-05-25 13:15 | XMS_ITS | Encounter Summary ---
:[address] [facility] Address [address] [place] [address] Care Team Providers Name Role Phone Elsewhere, Pcp Primary Care Provider Unavailable Reason for Visit Reason Comments Tacrolimus Adjustment Protocol Encounter Details Date Type Department Care Team Description 01/14/2020 Clinical Sidney Price [facility] Communication Center for Pretty A, Adjustment Transplantation and M.S.N., R.N. Protocol Clinical Regeneration [phone] in [facility] [address] [place] [address] Social History Tobacco Use Types Packs/Day Years [...] How often do you attend denominational or christian 1 to 4 times per [...] Encounter - Pretty Sumner M.S.N., R.N. - 01/14/2020 2:56 PM CDT Information Discussed Spoke to patient regarding tacrolimus level of 3.8 on 12/30. Patient states that she misunderstood the previous communication and never increased her dose that was advised from the level back in November 30. She states she will now take 3 mg in AM and 2 mg in PM and recheck a level in 2 weeks. RN to send patient another kit for this recheck. Patient will also have routine labs drawn at the time of her recheck as well and have them sent to [place] [facility] Disposition/Recommendation: protocol orders Information/Education: patient/caller able to teach back Caller agreeable to plan of care: yes The following references were used: nursing clinical judgement Telephone Encounter - Kitty Schultz C.Ph.T. - 01/14/2020 10:29 AM CDT Patient returning call. Please call her back. Thank you Telephone Encounter - Pretty Sumner M.S.N., R.N. - 01/14/2020 8:57 AM CDT Left message with Ernie to have patient call back or respond to the portal message. documented in this encounter Plan of Treatment Upcoming Encounters Date Type Specialty Care Team Description 06/01/2022 Telemedicine Pharmacy An Nicholas APRN C.N.P., D.N.P., M.S.N. [address] [place] [phone] (Nicolas wen) 07/31/2022 Lab Laboratory Medicine Tony Rubalcava M. B., ChBurke, MDebra [address] [place] [phone] (Nicolas wen) 07/31/2022 Lab Laboratory Medicine Tony Rubalcava M. B., ChBurke, MDebra [address] [place] [phone] (Nicolas wen) 07/31/2022 Office Visit Transplant Tony Rubalcava M.B., ChBurke, MDebra [address] [place] [phone] (Nicolas wen) 07/31/2022 Appointment Radiology Tony Rubalcava M.B., ChBurke, MDebra [address] [place] [phone] (Nicolas wen) 08/01/2022 Office Visit Transplant Tony Rubalcava M.B., ChBurke, MDebra [address] [place] [phone] (Nicolas wen) 08/01/2022 Clinical Support Transplant RufinoeliTnoy M.B., [place] [address] [place], [place] [phone] (Wo rk) documented as of this encounter Results (ABNORMAL) Tacrolimus, B (02/09/2020 5:40 AM CDT) athologist Signature Tacrolimus, B 3.4 (L) 5.0-15.0 02/12/2020 [facility] (Trough) 6:14 PM CDT ng/mL Comment: ----ADDITIONAL INFORMATION---- Target [...] Location / / Volume Laterality Blood (Blood, 02/09/2020 5:40 AM 02/12/20 20 Venous) CDT 11:34 AM CDT Resulting Agency Comment Mailed In Specimen Soraya Lu P.A.-C., M.S. LAB BLOOD NON ADD-ON Performing Organization Address City/State/ZIP Code Phon e Number [facility] [address] [place], [place] [address] SUPPORT [facility] [place] [address] Laboratory Medicine and Pathology [address] 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
--- OUTSIDE RECORDS SUMMARY | 2022-05-25 13:15 | XMS_ITS | Encounter Summary ---
:1960 Author Organization [facility] Address [address] [place] [address] Care Team Providers Name Role Phone Elsewhere, Pcp Primary Care Provider Unavailable Encounter Details Date Type Department Care Team Description 01/14/2020 Hospital Department of Jordan Lu ([facility]); Encounter Laboratory Kevon Ventura [facility] and P.A.-Milli, M.S. Pathology, [place] [address] [place] [address], [address] [facility] [address] [place] [phone] [place] [address] (Work) [place], [place] [phone] (Fax) [phone] Social History Tobacco Use Types Packs/Day Years [...] How often do you attend jain or sikh 1 to 4 times per [...] 1 Take as directed per 100 tablet 11 07/2002/16/2020 mg tablet After Visit Summary. warfarin (COUMADIN) 2.5 On 09/19, take 5 mg 75 tablet 08/2202/16/2020 mg tablet daily then check INR 2/3 documented as of this encounter Plan of Treatment Upcoming Encounters Date Type Specialty Care Team Description 06/01/2022 Telemedicine Pharmacy An Nicholas APRN C.N.P., D.N.P., M.S.N. [address] [place] [phone] (Nicolas wen) 07/31/2022 Lab Laboratory Medicine Tony Rubalcava M. B., Ch.B., M.D. [address] [place] [address] [phone] (Nicolas wen) 07/31/2022 Lab Laboratory Medicine Tony Rubalcava M. B., Ch.B., M.D. [address] [place] [address] [phone] (Nicolsa wen) 07/31/2022 Office Visit Transplant Tony Rubalcava M.B., [place] [address] [place] [address] [phone] (Wo rk) 07/31/2022 Appointment Radiology Tony Rubalcava M.B., [place] [address] [place] [phone] (Wo rk) 08/01/2022 Office Visit Transplant Tony Rubalcava M.B., [place] [address] [place] [address] [phone] (Wo rk) 08/01/2022 Clinical Support Transplant Tony Rubalcava M.B., [place] [address] [place] [phone] (Wo rk) documented as of this encounter Procedures Procedure Name Priority Date/Time Associated Comments Diagnosis TACROLIMUS LEVEL, B Routine 02/09/2020 5:40 AM Transplant Jessica l Results for this CDT (HCC) procedure are in Immunosuppressed the results State section. documented in this encounter Results (ABNORMAL) Tacrolimus, B (02/09/2020 5:40 AM CDT) P athologist Signature Tacrolimus, B 3.4 (L) 5.0-15.0 02/12/2020 [facility] (Trough) 6:14 PM CDT ng/mL Comment: ----ADDITIONAL [...] performa nce characteristics determined by [facility] in a manner consistent with CLIA [...] City/State/ZIP Code Phon e Number [facility] [address] [place] [address] SUPPORT [facility] [address] Laboratory Medicine and Pathology [address] [place] documented in this encounter Visit Diagnoses Diagnosis Transplant Renal (HCC) Immunosuppressed State documented in this encounter Additional Health Concerns Assessment Noted Time PHQ-9 Depression Total Score: 4 01/30/2019 12:13 PM CD T documented as of this encounter Care Teams Curtain Fitter Relationship Specialty Start Date End Date Elsewhere, Pcp PCP - General 09/17/19 documented as of this encounter
--- OUTSIDE RECORDS SUMMARY | 2022-05-25 13:15 | XMS_ITS | Encounter Summary ---
:1960 Author Organization [facility] Address [address] [place] [address] Care Team Providers Name Role Phone Elsewhere, Pcp Primary Care Provider Unavailable Encounter Details Date Type Department Care Team Description 01/19/2020 Orders Only Department of Urology [place] Mukund [address] [place] [address] [address] [place] [address] [place], [place] [phone] (Wo rk) Social History Tobacco Use Types [...] How often do you attend yarsanism or temple 1 to 4 times per [...] An Nicholas APRN, C.N.P., D.N.P., M.S.N. [address] [place] [phone] (Wo rk) 07/31/2022 Lab Laboratory Medicine Tony Rubalcava M. B., ChBurke, MElvia. [address] [place] [address] [phone] (Wo rk) 07/31/2022 Lab Laboratory Medicine Tony Rubalcava M. B., ChDaviBDavi, MDebra [address] [place] [address] [phone] (Wo rk) 07/31/2022 Office Visit Transplant Tony Rubalcava M.B., ChBurke, MDebra [address] [place] [address] 55 [phone] (Wo rk) 07/31/2022 Appointment Radiology Tony Rubalcava M.B., ChBurke, M.D. [address] [place] [address] 55 [phone] (Wo rk) 08/01/2022 Office Visit Transplant Tony Rubalcava M.B., [place] [address] [place] [address] 55 [phone] (Wo rk) 08/01/2022 Clinical Support Transplant Tony Rubalcava M.B., [place] [address] [place] [address] 55 [phone] (Wo rk) documented as of this encounter Visit Diagnoses Not on filedocumented in this encounter Additional Health Concerns Assessment Noted Time PHQ-9 Depression Total Score: 4 01/30/2019 12:13 PM CD T documented as of this encounter Care Teams Business Development Agent Relationship Specialty Start Date End Date Elsewhere, Pcp PCP - General 09/17/19 documented as of this encounter
--- OUTSIDE RECORDS SUMMARY | 2022-05-25 13:15 | XMS_ITS | Encounter Summary ---
:1960 Author Organization [facility] Address [address] [place] [address] Care Team Providers Name Role Phone Elsewhere, Pcp Primary Care Provider Unavailable Encounter Details Date Type Department Care Team Description 01/20/2020 Lab Department of Laboratory Idalia Bonds, Encounter For Screening Medicine and Pathology MDebra For Other Viral Diseases [place], in [address] [place] [address] (COVID-19) [place], [place] [address] [place] [address] [place] [address] [phone] Social History Tobacco Use Types Packs/Day Years [...] How often do you attend confucianism or denominational 1 to 4 times per [...] documented as of this encounter Miscellaneous Notes Result Encounter Note - Melissa West - 01/21/2020 10:25 AM CDT Result Letter sent to patient with negative COVID-19 result. documented in this encounter Plan of Treatment Upcoming Encounters Date Type Specialty Care Team Description 06/01/2022 Telemedicine Pharmacy An Nicholas APRN, C.N.P., D.N.P., M.S.N. [address] [place] [phone] (Nicolas wen) 07/31/2022 Lab Laboratory Medicine Tony Rubalcava M. B., Ch.B., M.D. [address] [place] [address] [phone] (Nicolas wen) 07/31/2022 Lab Laboratory Medicine Tony Rubalcava M. B., Ch.B., M.D. [address] [place] [address] [phone] (Nicolas wen) 07/31/2022 Office Visit Transplant Tony Rubalcava M.B., [place] [address] [place] [phone] (Wo rk) 07/31/2022 Appointment Radiology Tony Rubalcava M.B., [place] [address] [place] [address] [phone] (Wo rk) 08/01/2022 Office Visit Transplant Tony Rubalcava M.B., [place] [address] [place] [address] [phone] (Wo rk) 08/01/2022 Clinical Support Transplant Tony Rubalcava M.B., Sydnie, [place] [address] [place] [address] [phone] (Wo rk) documented as of this encounter Procedures Procedure Name Priority Date/Time Associated Comments Diagnosis SARS CORONAVIRUS 2 Routine 01/20/2020 3:26 PM Encounter For Re sults for this RNA CDT Screening For Other procedur e are in Viral Diseases the results (COVID-19) section. documented in this encounter Results SARS Coronavirus 2 RNA (01/20/2020 3:26 PM CDT) [facility] Method Time Signature SARS Swab, 01/21/2020 [facility] Coronavirus-2 Nasopharynx 6:52 AM CDT Source SARS Undetected Undetected 01/21/2020 [facility] Coronavirus-2 6:52 AM CDT , PCR Comment: SARS-CoV-2 RNA absent. This result does not rule out COVID-19 in the patient, as the sensitivity of the test depends o n the timing of the specimen collection and the quality of the specim en. Result should be correlated with patient's history and clinical presentat ion. ----ADDITIONAL INFORMATION---- This test using the [employer] RealTime SARS -CoV-2 assay ([employer] performed on the Song m2000 System has received Emergency Use Authorization (EUA) by the U.S. Food and Drug Administ yadira, and is modified from the key entry operator's instructions with a bridg ing study. Performance characteristics were verified by [facility] in a manner consistent with CLIA requirements. Fact sheets for this Emergency Use Autho rizaion (EUA) assay can be found at the following links: For Healthcare Providers: https://www.StudyBlue a.gov/media/416327/download For Patients: https://www.fda.gov/media/ 655980/download Specimen Anatomical Collection Method Collection Time Receive d Time (Source) Location / / Volume Laterality Varies 01/20/2020 3:26 PM 0 7:15 (Nasopharynx) CDT PM CDT Idalia Bonds M.D. LAB MICROBIOLOGY - GENERAL O RDERABLES Performing Organization Address City/State/ZIP Code Phon e Number [facility] [address] [place] [address] SUPPORT CENTER [facility] [place] [address] Laboratory Medicine and Pathology [address] [...] documented as of this encounter Care Teams Freezer Laboratory Technician Relationship Specialty Start Date End Date Elsewhere, Pcp PCP - General 09/17/19 documented as of this encounter
--- OUTSIDE RECORDS SUMMARY | 2022-05-25 13:15 | XMS_ITS | Encounter Summary ---
:1960 Author Organization [facility] Address [address] [place] [address] Care Team Providers Name Role Phone Elsewhere, Pcp Primary Care Provider Unavailable Reason for Visit Reason Comments Outside UA Encounter Details Date Type Department Care Team Description 01/16/2020 Clinical Communication Department of Urology Provider, Unknown Outside UA in [place], [place] [address] [place] [address] Social History Tobacco Use Types Packs/Day Years [...] How often do you attend temple or voodoo 1 to 4 times per [...] this encounter Miscellaneous Notes Telephone Encounter - Radha Balbuena - 01/19/2020 3:48 PM CDT Called the [place] lab. The results of the urine culture are finalized and they will be faxing the report. Telephone Encounter - Vicente Robledo M.D. - 01/19/2020 3:27 PM CDT Ashley Vegas, Do you know if a urine culture is pending and if so does the laboratory know to send the results to us? She does have bacteria on the urinalysis and I am inclined to treat her for urinary tract infection prior to her procedure if she does grow on the urine culture. Thank you Vicente Telephone Encounter - Radha Balbuena - 01/16/2020 11:55 AM CDT Ms. Wray's outside UA was faxed by [facility]. The report has been scanned into Documents Viewer. Stent exchange here on January 21. documented in this encounter Plan of Treatment Upcoming Encounters Date Type Specialty Care Team Description 06/01/2022 Telemedicine Pharmacy An Nicholas APRN, C.N.P., JonnieP., M.S.N. [address] [place] [phone] (Nicolas rk) 07/31/2022 Lab Laboratory Medicine Tony Rubalcava M. B., Sydnie, MDebra [address] [place] [phone] ( behzad) 07/31/2022 Lab Laboratory Medicine Tony Rubalcava M. B., [place], [place] [address] [place] [address] 55 [phone] (Nicolas wen) 07/31/2022 Office Visit Transplant Tony Rubalcava M.B., Sydnie, [place] [address] [place] [address] [phone] (Nicolas wen) 07/31/2022 Appointment Radiology Tony Rubalcava M.B., Sydnie, [place] [address] [place] [address] 55 [phone] ( behzad) 08/01/2022 Office Visit Transplant Tony Rubalcava M.B., Sydnie, [place] [address] [place] [address] 55 [phone] (Nicolas wen) 08/01/2022 Clinical Support Transplant Tony Rubalcava M.B., Sydnie, [place] [address] [place] [address] [phone] (Nicolas wen) documented as of this encounter Visit Diagnoses Not on filedocumented in this encounter Additional Health Concerns Infection Onset Date Last Indicated Resolved Time COVID19 Pending 01/20/2020 01/20/2020 01/21/2020 6:52 AM CDT Assessment Noted Time PHQ-9 Depression Total Score: 4 01/30/2019 12:13 PM CD T documented as of this encounter Care Teams Load Haul Dump Operator Relationship Specialty Start Date End Date Elsewhere, Pcp PCP - General 09/17/19 documented as of this encounter
--- OUTSIDE RECORDS SUMMARY | 2022-05-25 13:15 | XMS_ITS | Encounter Summary ---
:1960 Author Organization [facility] Address [address] [place] [address] Care Team Providers Name Role Phone Elsewhere, Pcp Primary Care Provider Unavailable Encounter Details Date Type Department Care Team Description 12/15/2019 Abstract [facility] Provider, Historical Social History Tobacco Use Types Packs/Day Years [...] How often do you attend gnosticism or oriental orthodox 1 to 4 times [...] Nicholas APRN C.N.P., D.N.P., M.S.N. [address] [place] [address] [phone] (Wo rk) 07/31/2022 Lab Laboratory Medicine Tony Rubalcava M. B., Sydnie, MDebra [address] [place] [address] [phone] (Wo rk) 07/31/2022 Lab Laboratory Medicine Tony Rubalcava M. B., Sydnie, MDebra [address] [place] [address] [phone] (Wo rk) 07/31/2022 Office Visit Transplant Tony Rubalcava M.B., ChBurke, MDebra [address] [place] [address] [phone] (Wo rk) 07/31/2022 Appointment Radiology Tony Rubalcava M.B., Sydnie, MDebra [address] [place] [address] [phone] (Wo rk) 08/01/2022 Office Visit Transplant Tony Rubalcava M.B., Sydnie, MDebra [address] [place] [address] [phone] (Wo rk) 08/01/2022 Clinical Support Transplant BentallTony M.B., Shashi Otoole. [address] [place], [place] 55 [phone] (Wo rk) documented as of this encounter Procedures Procedure Name Priority Date/Time Associated Diagnosis Comme nts PROTHROMBIN TIME (PT), Routine 12/10/2019 Resul ts for this P procedure are i n the results section . documented in this encounter Results Prothrombin Time (PT) (12/10/2019) P athologist Signature EXT INR 7.4 Specimen (Source) Anatomical Location Collection Method / Collectio n Time Received Time / Laterality Volume Blood (Blood, Venous) Historical Provider LAB BLOOD ADD-ON documented in this encounter Visit Diagnoses Not on filedocumented in this encounter Additional Health Concerns Assessment Noted Time PHQ-9 Depression Total Score: 4 01/30/2019 12:13 PM CD T documented as of this encounter Care Teams Evs Tech Relationship Specialty Start Date End Date Elsewhere, Pcp PCP - General 09/17/19 documented as of this encounter
--- OUTSIDE RECORDS SUMMARY | 2022-05-25 13:15 | XMS_ITS | Encounter Summary ---
:1960 Author Organization [facility] Address [address] [place] [address] Care Team Providers Name Role Phone Elsewhere, Pcp Primary Care Provider Unavailable Encounter Details Date Type Department Care Team Description 01/19/2020 Clinical Communication Department of Urology Efren Jones in Barbra Hernandez M.D. [address] [place] [phone] Social History Tobacco Use Types Packs/Day Years [...] How often do you attend worship or religion 1 to 4 times per [...] this encounter Miscellaneous Notes Telephone Encounter - Efren Jones M.D. - 01/19/2020 4:01 PM CDT Patient urine culture scanned into the documented here today. Growing <50,000 organisms of a gram-positive organism. No susceptibilities performed based on lab criteria. We called in an antibiotic prescription for cefdinir for 7 days prior to her stent exchange on 01/21. Patient has no allergies that should interfere with this antibiotic. Call patient indicated the plan with her. All questions answered documented in this encounter Plan of Treatment Upcoming Encounters Date Type Specialty Care Team Description 06/01/2022 Telemedicine Pharmacy An Nicholas APRN, C.N.P., D.N.P., M.S.N. [address] [place] [address] [phone] (Nicolas wen) 07/31/2022 Lab Laboratory Medicine Tony Rubalcava M. B., Ch.Maurice, Mukund [address] [place] [address] [phone] (Nicolas wen) 07/31/2022 Lab Laboratory Medicine Tony Rubalcava M. B., Sydnie, Mukund [address] [place] [address] [phone] (Wo rk) 07/31/2022 Office Visit Transplant Tony Rubalcava M.B., Sydnie, Mukund [address] [place] [address] [phone] (Wo rk) 07/31/2022 Appointment Radiology Tony Rubalcava M.B., Sydnie, Mukund [address] [place] [address] [phone] (Wo rk) 08/01/2022 Office Visit Transplant Tony Rubalcava M.B., Sydnie, Mukund [address] [place] [address] [phone] (Wo rk) 08/01/2022 Clinical Support Transplant Tony Rubalcava M.B., Sydnie, Mukund [address] [place] [address] [phone] (Wo rk) documented as of this encounter Visit Diagnoses Not on filedocumented in this encounter Additional Health Concerns Assessment Noted Time PHQ-9 Depression Total Score: 4 01/30/2019 12:13 PM CD T documented as of this encounter Care Teams Drafter Geological Relationship Specialty Start Date End Date Elsewhere, Pcp PCP - General 09/17/19 documented as of this encounter
--- OUTSIDE RECORDS SUMMARY | 2022-05-25 13:15 | XMS_ITS | Encounter Summary ---
:1960 Author Organization [facility] Address [address] [place] [address] Care Team Providers Name Role Phone Elsewhere, Pcp Primary Care Provider Unavailable Reason for Referral Outpatient (Routine) - Closed Specialty Diagnoses / Procedures Referred By Contact Refer red To Contact Internal Medicine / Diagnoses Obstruction Ureter [facility] Internal M.DDavi Medicine [address] [place] [address] Referral ID Status Reason Start Date Expiration Date Visits Requ ested Visits Authorized [id number] Closed 12/30/2019 12/29/2020 1 1 Reason for Visit Reason Onset Date Comments Pre-Surgical COVID-19 screening 12/30/2019 Encounter Details Date Type Department Care Team Description 12/30/2019 Orders Only Department of Urology Idalia Bonds En counter For Screening For Other Viral Diseases (COVID-19) (Primary Dx); in Damion Hernandez M.D. Obstruction Ureter [place] [address] [facility] [address] [place] [phone] Social History Tobacco Use Types Packs/Day Years [...] How often do you attend mandaen or latter-day 1 to 4 times per [...] documented as of this encounter Progress Notes Idalia Bonds M.D. - 12/30/2019 10:36 AM CDT Pre-Surgical Screening for patients with a surgery scheduled on the [facility] and [facility] surgical suites. 1. 2 days prior to scheduled surgery: Patient will have a scheduled nasal swab and serology test. 2. Test results will be verified by the surgical team before the patient arrives at the hospital forthe surgery. The Patient Appointment Guide will contain the specific arrival times/locations for these scheduled appointment(s). On weekend days, patients are to arrive at [facility] or [facility] from the [place] [facility]. documented in this encounter Plan of Treatment Upcoming Encounters Date Type Specialty Care Team Description 06/01/2022 Telemedicine Pharmacy An Nicholas APRN, C.NDaviPDavi, D.N.P., M.S.N. [address] [place] [address] [phone] (Wo rk) 07/31/2022 Lab Laboratory Medicine Tony Rubalcava M. B., Sydnie, Mukund [address] [place] [address] [phone] (Wo rk) 07/31/2022 Lab Laboratory Medicine Tony Rubalcava M. B., Sydnie, Mukund [address] [place] [address] [phone] (Wo rk) 07/31/2022 Office Visit Transplant Tony Rubalcava M.B., Sydnie, Mukund [address] [place] [address] [phone] (Wo rk) 07/31/2022 Appointment Radiology Tony Rubalcava M.B., Sydnie, Mukund [address] [place] [address] [phone] (Wo rk) 08/01/2022 Office Visit Transplant Tony Rubalcava M.B., Sydnie, Mukund [address] [place] [address] [phone] (Wo rk) 08/01/2022 Clinical Support Transplant Tony Rubalcava M.B., Sydnie, Mukund [address] [place] [address] [phone] (Wo rk) Scheduled Referrals Name Type Priority Associated Diagnoses Order S [facility] General Internal Outpatient Referral Routine Obstruction Urete r Expected: Medicine - SIDNEY 12/30/2019 consult (clinic) (Approximat e), Expires: 12/29/2022 documented as of this encounter Results SARS Coronavirus 2 RNA (01/20/2020 3:26 PM CDT) [facility] Method Time Signature SARS Swab, 01/21/2020 [facility] Coronavirus-2 Nasopharynx 6:52 AM CDT Source SARS Undetected Undetected 01/21/2020 [facility] Coronavirus-2 6:52 AM CDT , PCR Comment: SARS-CoV-2 RNA absent. This result does not rule out COVID-19 in the patient, as the sensitivity of the test depends o n the timing of the specimen collection and the quality of the specim en. Result should be correlated with patient's history and clinical presentat ion. ----ADDITIONAL INFORMATION---- This test using the Song RealTime SARS -CoV-2 assay ([employer] performed on the Algramo000 System has received Emergency Use Authorization (EUA) by the U.S. Food and Drug Administ ration, and is modified from the senior application security consultant's instructions with a bridg ing study. Performance characteristics were verified by [facility] inic in a manner consistent with CLIA requirements. Fact sheets for this Emergency Use Autho rizaion (EUA) assay can be found at the following links: For Healthcare Providers: https://www.fd a.gov/media/018683/download For Patients: https://www.fda.gov/media/ 669328/download Specimen Anatomical Collection Method Collection Time Receive d Time (Source) Location / / Volume Laterality Varies 01/20/2020 3:26 PM 0 7:15 (Nasopharynx) CDT PM CDT Idalia Bonds M.D. LAB MICROBIOLOGY - GENERAL O RDERABLES Performing Organization Address City/State/ZIP Code Phon e Number [facility] [address] [place], [place] [address] [facility] [place] [address] Laboratory Medicine and Pathology [address] [place] [address] Dr. COLLAZO SARS Coronavirus 2 IgG Ab, Serum (01/20/2020 12:15 PM CDT) P athologist Signature SARS-CoV-2 IgG Negative Negative 01/21/2020 [facility] Ab 12:42 AM CDT Comment: No IgG antibodies to SARS-CoV-2 detected . ?? Negative results may occur in serum vannesa ected too soon following infection, or in immunosuppres sed patients. ?? Follow-up testing with a molecular test is recommended in symptomatic patients. ??This test tito uld not be used to exclude active/recent COVID-19. ?? Testing was performed using the EUROIMMUN Aswh-ZJPH-YxH-2 CHARANJIT (IgG), which has received Emergency Use Authori zation (EUA) by the U.S. Food and Drug Administration . ?? Fact sheets for this EUA assay can be fo und at the following links: ?? Factsheet for healthcare Providers: ?? https://www.fda.gov/media/204123/downloa d Factsheet for healthcare Patients: ?? https://www.fda.gov/media/132550/downloa d Specimen Anatomical Collection Method Collection Time Receive d Time (Source) Location / / Volume Laterality Blood (Blood, 01/20/2020 12:15 01/20/2020 5:04 Venous) PM CDT PM CDT Idalia Bonds M.D. LAB MICROBIOLOGY - BLOOD ORD ERABLES Performing Organization Address City/State/ZIP Code Phon e Number [facility] [address] [place] [address] SUPPORT CENTER [facility] [place] [address] Laboratory Medicine and Pathology [address] [place] documented in this encounter Visit Diagnoses Diagnosis Encounter For Screening For Other Viral Diseases (COVID-19) - Primary Obstruction Ureter documented in this encounter Additional Health Concerns Assessment Noted Time PHQ-9 Depression Total Score: 4 01/30/2019 12:13 PM CD T documented as of this encounter Care Teams Loom Cleaner Relationship Specialty Start Date End Date Elsewhere, Pcp PCP - General 09/17/19 documented as of this encounter
--- OUTSIDE RECORDS SUMMARY | 2022-05-25 13:15 | XMS_ITS | Encounter Summary ---
:1960 Author Organization [facility] Address [address] [place] [address] Care Team Providers Name Role Phone Elsewhere, [...] How often do you attend cheondoism or uatsdin 1 to 4 times per [...] An Nicholas APRN C.N.P., D.N.P., M.S.N. [address] [place] [address] [phone] (Wo rk) 07/31/2022 Lab Laboratory Medicine Tony Rubalcava M. B., Sydnie, MDebra [address] [place] [address] [phone] (Wo rk) 07/31/2022 Lab Laboratory Medicine Tony Rubalcava M. B., Sydnie, MDebra [address] [place] [address] [phone] (Wo rk) 07/31/2022 Office Visit Transplant Tony Rubalcava M.B., ChBurke, MDebra [address] [place] [address] [phone] (Wo rk) 07/31/2022 Appointment Radiology Tony Rubalcava M.B., Sydnie, MDebra [address] [place] [address] [phone] (Wo rk) 08/01/2022 Office Visit Transplant Tony Rubalcava M.B., Sydnie, MDebra [address] [place] [address] [phone] (Wo rk) 08/01/2022 Clinical Support Transplant BentallTony M.B., Shashi Otoole. [address] [place], [place] 55 [phone] (Wo rk) documented as of this encounter Procedures Procedure Name Priority Date/Time Associated Diagnosis Comme nts PROTHROMBIN TIME (PT), Routine 12/12/2019 Resul ts for this P procedure are i n the results section . documented in this encounter Results Prothrombin Time (PT) (12/12/2019) P athologist Signature EXT INR 3.5 Specimen (Source) Anatomical Location Collection Method / Collectio n Time Received Time / Laterality Volume Blood (Blood, Venous) Historical Provider LAB BLOOD ADD-ON documented in this encounter Visit Diagnoses Not on filedocumented in this encounter Additional Health Concerns Assessment Noted Time PHQ-9 Depression Total Score: 4 01/30/2019 12:13 PM CD T documented as of this encounter Care Teams Director Of Finance Relationship Specialty Start Date End Date Elsewhere, Pcp PCP - General 09/17/19 documented as of this encounter
--- OUTSIDE RECORDS SUMMARY | 2022-05-25 13:15 | XMS_ITS | Encounter Summary ---
:1960 Author Organization [facility] Address [address] [place] [address] Care Team Providers Name Role Phone Elsewhere, Pcp Primary Care Provider Unavailable Encounter Details Date Type Department Care Team Description 12/31/2019 Clinical Communication [facility] M.S. Transplantation and [address] [place] [address] Clinical [place], [place] in [facility] [phone] [place] [address] [place], [place] (Work) [address] [phone] Social History Tobacco Use Types Packs/Day Years [...] How often do you attend moravian or episcopal 1 to 4 times per [...] Nicholas APRN, C.N.P., D.N.P., M.S.N. [address] [place] [address] [phone] (Nicolas wen) 07/31/2022 Lab Laboratory Medicine Tony Rubalcava M. B., ChDaviBDavi, M.D. [address] [place] [address] [phone] (Nicolas wen) 07/31/2022 Lab Laboratory Medicine Tony Rubalcava M. B., ChDaviBDaiv, M.D. [address] [place] [address] [phone] (Nicolas wen) 07/31/2022 Office Visit Transplant Tony Rubalcava M.B., ChBurke, MElvia. [address] [place] [address] [phone] (Nicolas wen) 07/31/2022 Appointment Radiology Tony Rubalcava M.B., Mukund Otoole [address] [place], [place] 55 [phone] (Wo behzad) 08/01/2022 Office Visit Transplant Tony Rubalcava M.B., Mukund Otoole [address] [place], [place] 55 [phone] (Nicolas wen) 08/01/2022 Clinical Support Transplant Tony Rubalcava M.B., Mukund Otoole [address] [place], [place] 55 [phone] (Nicolas wen) documented as of this encounter Results Tacrolimus, B (03/22/2020 5:30 AM CDT) athologist Signature Tacrolimus, B 9.8 5.0-15.0 03/27/2020 [facility] ([place]) 1:00 PM CDT ng/mL Comment: ----ADDITIONAL [...] and its performa nce characteristics determined by [facility] in a manner consistent with CLIA [...] Organization Address City/State/ZIP Code Phon e Number [facility] [address] [place], [place] [address] [address] [facility] [place] [address] Laboratory Medicine and Pathology [address] [...] this encounter Care Teams Sales And Marketing Coordinator Relationship Specialty Start Date End Date Elsewhere, Pcp PCP - General 09/17/19 documented as of this encounter
--- OUTSIDE RECORDS SUMMARY | 2022-05-25 13:15 | XMS_ITS | Encounter Summary ---
:1960 Author Organization [facility] Address [address] [place] [address] Care Team Providers Name Role Phone Elsewhere, Pcp Primary Care Provider Unavailable Encounter Details Date Type Department Care Team Description 12/26/2019 Abstract [facility] Provider, Historical Social History [...] How often do you attend moravian or pentecostal 1 to 4 times per [...] Nicholas APRN C.N.P., D.N.P., M.S.N. [address] [place] [address] [phone] (Wo rk) 07/31/2022 Lab Laboratory Medicine Tony Rubalcava M. B., Sydnie, MDebra [address] [place] [address] [phone] (Wo rk) 07/31/2022 Lab Laboratory Medicine Tony Rubalcava M. B., Sydnie, MDebra [address] [place] [address] [phone] (Wo rk) 07/31/2022 Office Visit Transplant Tony Rubalcava M.B., ChBurke, MDebra [address] [place] [address] [phone] (Wo rk) 07/31/2022 Appointment Radiology Tony Rubalcava M.B., Sydnie, MDebra [address] [place] [address] [phone] (Wo rk) 08/01/2022 Office Visit Transplant Tony Rubalcava M.B., Sydnie, MDebra [address] [place] [address] [phone] (Wo rk) 08/01/2022 Clinical Support Transplant Tony Rubalcava M.B., Shashi Otoole. [address] [place], [place] 55 [phone] (Wo rk) documented as of this encounter Procedures Procedure Name Priority Date/Time Associated Diagnosis Comme nts HEPATIC FUNCTION Routine 11/12/2019 Results for this PANEL, S procedure are i n the results section . CBC WITHOUT Routine 11/12/2019 Results for thi s DIFFERENTIAL, B procedure ar e in the results section . BASIC METABOLIC PANEL, Routine 11/12/2019 Resul ts for this S/P procedure are i n the results section . HEPATIC FUNCTION Routine 10/17/2019 Results for this PANEL, S procedure are i n the results section . CBC WITHOUT Routine 10/17/2019 Results for thi s DIFFERENTIAL, B procedure ar e in the results section . BASIC METABOLIC PANEL, Routine 10/17/2019 Resul ts for this S/P procedure are i n the results section . HEPATIC FUNCTION Routine 09/15/2019 Results for this PANEL, S procedure are i n the results section . BASIC METABOLIC PANEL, Routine 09/15/2019 Resul ts for this S/P procedure are i n the results section . documented in this encounter Results Basic Metabolic Panel (11/12/2019) P athologist Signature EXT Potassium 4.7 OTHER (SPECIFY IN ENVIRONMENTAL SERVICES COORDINATOR) EXT Sodium 136 OTHER (SPECIFY IN ENVIRONMENTAL SERVICES COORDINATOR) Specimen (Source) Anatomical Location Collection Method / Collectio n Time Received Time / Laterality Volume Blood (Blood, Venous) Ordering Provider External M.D. LAB BLOOD ADD-ON Performing Organization Address City/State/ZIP Code Phon e Number OTHER (SPECIFY IN ENVIRONMENTAL SERVICES COORDINATOR) OTHER (SPECIFY IN ENVIRONMENTAL SERVICES COORDINATOR) N/A Hepatic Function Panel (11/12/2019) P athologist Signature EXT ALT 12 OTHER (SPECIFY IN ENVIRONMENTAL SERVICES COORDINATOR) EXT AST 18 OTHER (SPECIFY IN ENVIRONMENTAL SERVICES COORDINATOR) Specimen (Source) Anatomical Location Collection Method / Collectio n Time Received Time / Laterality Volume Blood (Blood, Venous) Ordering Provider External M.D. LAB BLOOD ADD-ON Performing Organization Address City/[facility] Phon e Number OTHER (SPECIFY IN ENVIRONMENTAL SERVICES COORDINATOR) OTHER (SPECIFY IN ENVIRONMENTAL SERVICES COORDINATOR) N/A CBC without Differential (11/12/2019) P athologist Signature EXT Platelet 190 OTHER (SPECIFY Count IN ENVIRONMENTAL SERVICES COORDINATOR) EXT Hemoglobin 11.8 OTHER (SPECIFY IN ENVIRONMENTAL SERVICES COORDINATOR) EXT Hematocrit 36.9 OTHER (SPECIFY IN ENVIRONMENTAL SERVICES COORDINATOR) EXT White Blood 7.1 OTHER (SPECIFY Cell (WBC) IN ENVIRONMENTAL SERVICES COORDINATOR) Count Specimen (Source) Anatomical Location Collection Method / Collectio n Time Received Time / Laterality Volume Blood (Blood, Venous) Ordering Provider External M.D. LAB BLOOD ADD-ON Performing Organization Address [facility] Phon e Number OTHER (SPECIFY IN ENVIRONMENTAL SERVICES COORDINATOR) OTHER (SPECIFY IN ENVIRONMENTAL SERVICES COORDINATOR) N/A Basic Metabolic Panel (10/17/2019) P athologist Signature EXT Potassium 4.5 OTHER (SPECIFY IN ENVIRONMENTAL SERVICES COORDINATOR) EXT Sodium 138 OTHER (SPECIFY IN ENVIRONMENTAL SERVICES COORDINATOR) Specimen (Source) Anatomical Location Collection Method / Collectio n Time Received Time / Laterality Volume Blood (Blood, Venous) Ordering Provider External M.D. LAB BLOOD ADD-ON Performing Organization Address [facility] Phon e Number OTHER (SPECIFY IN ENVIRONMENTAL SERVICES COORDINATOR) OTHER (SPECIFY IN ENVIRONMENTAL SERVICES COORDINATOR) N/A Hepatic Function Panel (10/17/2019) P athologist Signature EXT ALT 22 OTHER (SPECIFY IN ENVIRONMENTAL SERVICES COORDINATOR) EXT AST 22 OTHER (SPECIFY IN ENVIRONMENTAL SERVICES COORDINATOR) Specimen (Source) Anatomical Location Collection Method / Collectio n Time Received Time / Laterality Volume Blood (Blood, Venous) Ordering Provider External M.D. LAB BLOOD ADD-ON Performing Organization Address City/[facility]/ZIP [facility] Phon e Number OTHER (SPECIFY IN ENVIRONMENTAL SERVICES COORDINATOR) OTHER (SPECIFY IN ENVIRONMENTAL SERVICES COORDINATOR) N/A CBC without Differential (10/17/2019) P athologist Signature EXT Platelet 199 OTHER (SPECIFY Count IN ENVIRONMENTAL SERVICES COORDINATOR) Specimen (Source) Anatomical Location Collection Method / Collectio n Time Received Time / Laterality Volume Blood (Blood, Venous) Ordering Provider External M.D. LAB BLOOD ADD-ON Performing Organization Address City/[facility]/ZIP [facility] Phon e Number OTHER (SPECIFY IN ENVIRONMENTAL SERVICES COORDINATOR) OTHER (SPECIFY IN ENVIRONMENTAL SERVICES COORDINATOR) N/A Basic Metabolic Panel (09/15/2019) P athologist Signature EXT Potassium 4.7 OTHER (SPECIFY IN ENVIRONMENTAL SERVICES COORDINATOR) EXT Sodium 141 OTHER (SPECIFY IN ENVIRONMENTAL SERVICES COORDINATOR) Specimen (Source) Anatomical Location Collection Method / Collectio n Time Received Time / Laterality Volume Blood (Blood, Venous) Ordering Provider External M.D. LAB BLOOD ADD-ON Performing Organization Address City/State/ZIP Code Phon e Number OTHER (SPECIFY IN ENVIRONMENTAL SERVICES COORDINATOR) OTHER (SPECIFY IN ENVIRONMENTAL SERVICES COORDINATOR) N/A Hepatic Function Panel (09/15/2019) P athologist Signature EXT Alkaline 110 OTHER (SPECIFY Phosphatase IN ENVIRONMENTAL SERVICES COORDINATOR) Specimen (Source) Anatomical Location Collection Method / Collectio n Time Received Time / Laterality Volume Blood (Blood, Venous) Ordering Provider External M.D. LAB BLOOD ADD-ON Performing Organization Address City/[facility] Phon e Number OTHER (SPECIFY IN ENVIRONMENTAL SERVICES COORDINATOR) OTHER (SPECIFY IN ENVIRONMENTAL SERVICES COORDINATOR) N/A documented in this encounter Visit Diagnoses Not on filedocumented in this encounter Additional Health Concerns Assessment Noted Time PHQ-9 Depression Total Score: 4 01/30/2019 12:13 PM CD T documented as of this encounter Care Teams Manager Emergency Department Relationship Specialty Start Date End Date Elsewhere, Pcp PCP - General 09/17/19 documented as of this encounter
--- OUTSIDE RECORDS SUMMARY | 2022-05-25 13:15 | XMS_ITS | Encounter Summary ---
:1960 Author Organization [facility] Address [address] [place] [address] Care Team Providers Name Role Phone Elsewhere, Pcp Primary Care Provider Unavailable Reason for Visit Reason Comments Med Refill Encounter Details Date Type Department Care Team Description 12/28/2019 Refill Division of Nephrology and Tanya, Neymar Yap Jr., Med Refill Hypertension in [facility] [address] [facility] [address] [place] [address] [place] [address] [phone] Social History Tobacco Use Types Packs/Day Years [...] How often do you attend sikh or adventist 1 to 4 times per [...] Nicholas APRN, C.N.P., D.N.P., M.S.N. [address] [place] [address] 55 [phone] (Nicolas wen) 07/31/2022 Lab Laboratory Medicine Tony Rubalcava M. B., Ch.B., M.D. [address] [place] [address] 55 [phone] (Nicolas wen) 07/31/2022 Lab Laboratory Medicine Tony Rubalcava M. B., Ch.B., M.D. [address] [place] [address] 55 [phone] (Nicolas wen) 07/31/2022 Office Visit Transplant Tony Rubalcava M.B., Ch.B., M.D. [address] [place] [address] 55 [phone] (Nicolas wen) 07/31/2022 Appointment Radiology Tony Rubalcava M.B., Ch.B., Mukund [address] [place] [address] 55 [phone] (Wo behzad) 08/01/2022 Office Visit Transplant Tony Rubalcava M.B., Mukund [place] [address] [place] [address] 55 [phone] (Wo behzad) 08/01/2022 Clinical Support Transplant Tony Rubalcava M.B., Sydnie, Mukund [address] [place] [address] 55 [phone] (Nicolas wen) documented as of this encounter Visit Diagnoses Not on filedocumented in this encounter Additional Health Concerns Assessment Noted Time PHQ-9 Depression Total Score: 4 01/30/2019 12:13 PM CD T documented as of this encounter Care Teams Mobile Battery Technician Relationship Specialty Start Date End Date Elsewhere, Pcp PCP - General 09/17/19 documented as of this encounter
--- OUTSIDE RECORDS SUMMARY | 2022-05-25 13:16 | XMS_ITS | Encounter Summary ---
:1960 Author Organization [facility] Address [address] [place] [address] Care Team Providers Name Role Phone Elsewhere, Pcp Primary Care Provider Unavailable Reason for Visit Reason Comments Med Refill Encounter Details Date Type Department Care Team Description 10/30/2019 Refill Division of Nephrology and Tanya, Neymar Yap Jr., Med Refill Hypertension in [facility] [address] [facility] [address] [place] [address] [place] [address] [phone] Social History Tobacco Use Types Packs/Day Years [...] How often do you attend rastafarian or cheondoism 1 to 4 times per [...] Nicholas APRN, C.N.P., D.N.P., M.S.N. [address] [place] [address] 55 [phone] (Nicolas wen) 07/31/2022 Lab Laboratory Medicine Tony Rubalcava M. B., Ch.B., M.D. [address] [place] [address] 55 [phone] (Nicolas wen) 07/31/2022 Lab Laboratory Medicine Tony Rubalcava M. B., Ch.B., M.D. [address] [place] [address] 55 [phone] (Nicolas wen) 07/31/2022 Office Visit Transplant Tony Rubalcava M.B., Ch.B., M.D. [address] [place] [address] 55 [phone] (Nicolas wen) 07/31/2022 Appointment Radiology Tony Rubalcava M.B., Ch.B., Mukund [address] [place] [address] [phone] (Wo behzad) 08/01/2022 Office Visit Transplant Tony Rubalcava M.B., [place] [address] [place] [address] [phone] (Wo behzad) 08/01/2022 Clinical Support Transplant Tony Rubalcava M.B., Sydnie, Mukund [address] [place] [address] 55 [phone] (Nicolas wne) documented as of this encounter Visit Diagnoses Not on filedocumented in this encounter Additional Health Concerns Assessment Noted Time PHQ-9 Depression Total Score: 4 01/30/2019 12:13 PM CD T documented as of this encounter Care Teams Weight Reduction Specialist Relationship Specialty Start Date End Date Elsewhere, Pcp PCP - General 09/17/19 documented as of this encounter
--- OUTSIDE RECORDS SUMMARY | 2022-05-25 13:16 | XMS_ITS | Encounter Summary ---
:1960 Author Organization [facility] Address [address] [place] [address] Care Team Providers Name Role Phone Elsewhere, Pcp Primary Care Provider Unavailable Reason for Visit Reason Comments Nicotine Dependence Encounter Details Date Type Department Care Team Description 11/03/2019 Clinical Communication Department of Veronique Bray cotine Dependence Nicotine Chauncey Ribera, M.A., C.T.T.S. [facility], [address] [place] [address] in [facility] [phone] [place] [address] [place], [place] (Work) [phone] Social History Tobacco Use Types Packs/Day Years [...] How often do you attend bahai or roman catholic 1 to 4 times [...] Nicholas APRN, C.N.P., D.N.P., M.S.N. [address] [place] [address] 55 [phone] (Nicolas wen) 07/31/2022 Lab Laboratory Medicine Tony Rubalcava M. B., Ch.B., M.D. [address] [place] [address] 55 [phone] (Nicolas wen) 07/31/2022 Lab Laboratory Medicine Tony Rubalcava M. B., Ch.B., M.D. [address] [place] [address] 55 [phone] (Nicolas wen) 07/31/2022 Office Visit Transplant Tony Rubalcava M.B., Ch.B., M.D. [address] [place] [address] 55 [phone] (Nicolas wen) 07/31/2022 Appointment Radiology Tony Rubalcava M.B., Ch.B., Mukund [address] [place] [address] 55 [phone] (Wo behzad) 08/01/2022 Office Visit Transplant Tony Rubalcava M.B., [place]und [place] [address] [place] [address] 55 [phone] (Wo behzad) 08/01/2022 Clinical Support Transplant Tony Rubalcava M.B., Sydnie, Mukund [address] [place] [address] 55 [phone] (Nicolas wen) documented as of this encounter Visit Diagnoses Not on filedocumented in this encounter Additional Health Concerns Assessment Noted Time PHQ-9 Depression Total Score: 4 01/30/2019 12:13 PM CD T documented as of this encounter Care Teams Custodial Laborer Relationship Specialty Start Date End Date Elsewhere, Pcp PCP - General 09/17/19 documented as of this encounter
--- OUTSIDE RECORDS SUMMARY | 2022-05-25 13:16 | XMS_ITS | Encounter Summary ---
:1960 Author Organization [facility] Address [address] [place] [address] Care Team Providers Name Role Phone Elsewhere, Pcp Primary Care Provider Unavailable Encounter Details Date Type Department Care Team Description 10/21/2019 Orders Only Division of Nephrology and Neymar Martínez Hypertension in [place], ., D.O. [place] [address] [facility] 200 [place] [id number] [phone] (Wo rk) Social History Tobacco Use Types [...] How often do you attend anabaptist or caodaism 1 to 4 times per [...] An Nicholas APRN C.N.P., D.N.P., M.S.N. [address] [place] [address] 55 [phone] (Wo rk) 07/31/2022 Lab Laboratory Medicine Tony Rubalcava M. B., Sydnie, MDebra [address] [place] [address] 55 [phone] (Wo rk) 07/31/2022 Lab Laboratory Medicine Tony Rubalcava M. B., ChBurke, MDebra [address] [place] [address] 55 [phone] (Wo rk) 07/31/2022 Office Visit Transplant Tony Rubalcava M.B., Sydnie, MDebra [address] [place] [address] 55 [phone] (Wo rk) 07/31/2022 Appointment Radiology Tony Rubalcava M.B., Ch.BMukund [place] [address] [place] [address] 55 [phone] (Wo rk) 08/01/2022 Office Visit Transplant Tony Rubalcava M.B., Mukund [place] [address] [place] [address] 55 [phone] (Wo rk) 08/01/2022 Clinical Support Transplant Tony Rubalcava M.B., Sydnie, Mukund [address] [place] [address] 55 [phone] (Wo rk) documented as of this encounter Visit Diagnoses Not on filedocumented in this encounter Additional Health Concerns Assessment Noted Time PHQ-9 Depression Total Score: 4 01/30/2019 12:13 PM CD T documented as of this encounter Care Teams Marine Fireman Relationship Specialty Start Date End Date Elsewhere, Pcp PCP - General 09/17/19 documented as of this encounter
--- OUTSIDE RECORDS SUMMARY | 2022-05-25 13:16 | XMS_ITS | Encounter Summary ---
:1960 Author Organization [facility] Address [address] [place] [address] Care Team Providers Name Role Phone Elsewhere, Pcp Primary Care Provider Unavailable Encounter Details Date Type Department Care Team Description 12/08/2019 Orders Only Division of Nephrology and Neymar Martínez Hypertension in [place], ., D.O. [place] [address] [facility] 200 [place] [address] [phone] (Wo rk) Social History Tobacco Use Types [...] How often do you attend yarsanism or yazidism 1 to 4 times per [...] Nicholas APRN C.N.P., D.N.P., M.S.N. [address] [place] [address] 55 [phone] (Wo rk) 07/31/2022 Lab Laboratory Medicine Tony Rubalcava M. B., Sydnie, MDebra [address] [place] [address] 55 [phone] (Wo rk) 07/31/2022 Lab Laboratory Medicine Tony Rubalcava M. B., ChBurke, MDebra [address] [place] [address] 55 [phone] (Wo rk) 07/31/2022 Office Visit Transplant Tony Rubalcava M.B., Sydnie, MDebra [address] [place] [address] 55 [phone] (Wo rk) 07/31/2022 Appointment Radiology Tony Rubalcava M.B., Ch.BMukund [place] [address] [place] [address] 55 [phone] (Wo rk) 08/01/2022 Office Visit Transplant Tony Rubalcava M.B., Mukund [place] [address] [place] [address] 55 [phone] (Wo rk) 08/01/2022 Clinical Support Transplant Tony Rubalcava M.B., Sydnie, Mukund [address] [place] [address] 55 [phone] (Wo rk) documented as of this encounter Visit Diagnoses Not on filedocumented in this encounter Additional Health Concerns Assessment Noted Time PHQ-9 Depression Total Score: 4 01/30/2019 12:13 PM CD T documented as of this encounter Care Teams Direct Support Professional Caregiver Relationship Specialty Start Date End Date Elsewhere, Pcp PCP - General 09/17/19 documented as of this encounter
--- OUTSIDE RECORDS SUMMARY | 2022-05-25 13:16 | XMS_ITS | Encounter Summary ---
:1960 Author Organization [facility] Address [address] [place] [address] Care Team Providers Name Role Phone Elsewhere, Pcp Primary Care Provider Unavailable Reason for Referral Medication Prior Authorization (Routine) - Authorized Specialty Diagnoses / Procedures Referred By Contact Refer red To Contact Steve Martínez D.O. [address] [place] [phone] Referral ID Status Reason Start Date Expiration Date Visits V isits Requested Authorized [id number] Authorized 08/20/2019 11/10/2020 1 1 ING STITCHER Encounter Details Date Type Department Care Team Description 10/22/2019 Orders Only Division of Nephrology and Neymar Martínez Hypertension in [employer] D[facility] [address] 200 [place] [address] [phone] (Wo rk) Social History Tobacco Use Types [...] How often do you attend moravian or caodaism 1 to 4 times per [...] An Nicholas APRN, C.N.P., D.N.P., M.S.N. [address] [place] [address] 55 [phone] (Wo rk) 07/31/2022 Lab Laboratory Medicine Tony Rubalcava M. B., ChBurke, MElvia. [address] [place] [address] 55 [phone] (Wo rk) 07/31/2022 Lab Laboratory Medicine Tony Rubalcava M. B., Ch.BMukund [place] [address] [place] [address] 55 [phone] (Wo rk) 07/31/2022 Office Visit Transplant Tony Rubalcava M.B., Sydnie, Mukund [address] [place] [address] 55 [phone] (Wo rk) 07/31/2022 Appointment Radiology Tony Rubalcava M.B., Sydnie, Mukund [address] [place] [address] 55 [phone] (Wo rk) 08/01/2022 Office Visit Transplant Tony Rubalcava M.B., Sydnie, Mukund [address] [place] [address] 55 [phone] (Wo rk) 08/01/2022 Clinical Support Transplant Tony Rubalcava M.B., Sydnie, MDebra [address] [place] [address] 55 [phone] (Wo rk) documented as of this encounter Visit Diagnoses Not on filedocumented in this encounter Additional Health Concerns Assessment Noted Time PHQ-9 Depression Total Score: 4 01/30/2019 12:13 PM CD T documented as of this encounter Care Teams Soft Mud Molder Relationship Specialty Start Date End Date Elsewhere, Pcp PCP - General 09/17/19 documented as of this encounter
--- OUTSIDE RECORDS SUMMARY | 2022-05-25 13:16 | XMS_ITS | Encounter Summary ---
:1960 Author Organization [facility] Address [address] [place] [id number] Care Team Providers Name Role Phone Elsewhere, Pcp Primary Care Provider Unavailable Encounter Details Date Type Department Care Team Description 09/15/2019 - Hospital Encounter [facility] Amaris Stack M.D., M.S. [address] [place] [phone] Ureteral Stent 09/19/2019 [facility], [facility] Kay Ruiz M.D. Exchange ([facility], StraussPranay alvares M.D. [address] [place] [phone] Dx) [facility], Sixth Floor [address] [place] [phone] Social History Tobacco Use Types Packs/Day Years [...] How often do you attend buddhism or uatsdin 1 to 4 times per [...] Sign Reading Time Taken Comments Blood Pressure 140/83 09/19/2019 12:59 PM REFRIGERATOR GLAZIER Pulse 69 09/19/2019 12:59 PM REFRIGERATOR GLAZIER Temperature 36.6 ??C (97.9 ??F) 09/19/2019 12:59 PM REFRIGERATOR GLAZIER Respiratory Rate 18 09/19/2019 12:59 PM REFRIGERATOR GLAZIER Oxygen Saturation 96% 09/19/2019 12:59 PM REFRIGERATOR GLAZIER Inhaled Oxygen Concentration - - Weight 94 kg (207 lb 3.7 oz) 09/19/2019 11:45 AM REFRIGERATOR GLAZIER Height 162.6 cm (5' 4) 09/15/2019 1:40 PM REFRIGERATOR GLAZIER Body Mass Index 35.57 09/15/2019 1:40 PM REFRIGERATOR GLAZIER documented in this encounter Discharge Summaries Evelia Perkins, C.N.P., R.N. - 09/19/2019 7:49 AM CST DISCHARGE SUMMARY Discharge Provider: Kay Ruiz M.D. Primary Care Providers: Elsewhere, Pcp (General) [address] [place] [phone] Discharge Provider Team: Hospital Internal Medicine (H[facility]) RST Medicine 7 ([facility]) Primary Care Provider Phone Number: None Primary Care Provider Fax Number: None Other Providers: Evelia Perkins CNP Admission Date: 09/15/2019 Discharge Date: 09/19/2019 PRINCIPAL DIAGNOSIS Obstruction Ureteropelvic SECONDARY DIAGNOSES Principal Problem: Obstruction Ureteropelvic Active Problems: Anticoagulant Therapy Hyperlipidemia Transplant Renal (HCC) Hypertension And Chronic Kidney Disease Stage 1 To 4 Chronic Failure Renal End Stage Renal Disease Dialysis Dependent (HCC) Thombosis Arteriovenous Fistula Initial (HCC) Ureteral Stent Exchange Infection Urinary Tract Recurrent Resolved Problems: * No resolved hospital problems. * Surgery Information This Encounter Past Procedures (09/19/2018 to Today) Date Procedures Providers Location 09/16/2019 EXCHANGE URETERAL STENT., Retrograde Pyelogram Adam Craig M.D.Jakub Ray M.D., Ph.D.Geraldo Salinas M.D. RST ROMB OR DISCHARGE DISPOSITION Home or Self Care [1] ACTIVE ISSUES REQUIRING FOLLOW UP -she should follow-up with her primary Urology team in 3 to 4 months for stent exchange. -take 5 mg warfarin daily over weekend then check INR 2/3 OUTPATIENT FOLLOW UP No future appointments. 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 Last warfarin dose was taken on 09/12/2019. She was started on heparin nomogram given concerns for prior AV fistula thrombosis. Underwent ureteral stent exchange and tunnel dialysis removal 09/16/2019 without complication. INR on admission was 1.5. Target INR 2.5-3.5. She continued to be hospitalize for bridging to achieve target INR goal of 1.8. MEDICATIONS CHANGED DURING THIS HOSPITAL STAY Medications stopped: ciprofloxacin Medications changed: warfarin Medications added: NA CONSULTS ORDERED DURING THIS ADMISSION IP CONSULT TO NEPHROLOGY CONDITION AT DISCHARGE Stable I saw and evaluated Ms. Shabnam Wray today and provided counseling [id number] at bedside. I personally spent over half of a total 40 minutes in counseling and discussion with the patient and in coordination of care as described above to facilitate the hospital discharge. Discharge instructions wer e provided to the patient and caregiver(s). IGERATOR GLAZIER documented in this encounter Discharge Instructions Discharge InstructionsLiRadha robles - 09/15/2019 3:09 PM CST You were discharged from the [facility] Medicine 7 ([facility]) Service. Please identify this service name if you call with questions after hospitalization. IGERATOR GLAZIER documented in this encounter Medications at Time [...] Lunch tablet and dinner. gabapentin (NEURONTIN) Take 2 capsules (200 120 capsule 11 12/08/2019 100 mg capsule mg total) by mouth 2 (two) times a day. multivitamin renal Take 1 tablet by 30 tablet 11 06/06/2019 09/22/2021 failure (DIALYVITE) mouth every evening. 100-1 mg tablet mycophenolate Take 1 capsule (250 180 capsule 3 03/14/2019 0 03/05/2020 (CELLCEPT) 250 mg mg total) by mouth 2 capsule (two) times a day. Do not break, cut, or open capsules. predniSONE (DELTASONE) TAKE 1 TABLET(5 MG) 90 tablet 0 06/2110/30/2019 5 mg tablet BY MOUTH DAILY rosuvastatin (CRESTOR) Take 1 tablet (5 mg 90 tablet 3 12/1812/29/2019 5 mg tablet total) by mouth daily. sevelamer (RENVELA) 800 Take 800 mg by mouth 0 01/26/2020 mg tablet daily with breakfast. Take with largest meal of the day tacrolimus (PROGRAF) 1 Take 2 capsules (2 360 capsule 3 03/201812/08/2019 mg capsule mg total) by mouth 2 (two) times a day. warfarin (COUMADIN) 1 Take as directed per 100 tablet 11 07/2002/16/2020 mg tablet After Visit Summary. acetaminophen (TYLENOL) Take 2 tablets 0 05/12/20 19 04/07/2022 500 mg tablet (1,000 mg total) by mouth every 6 (six) hours as needed for pain. lidocaine-prilocaine APPLY TOPICALLY TO 60 g 11 020 04/07/2022 (EMLA) 2.5-2.5 % cream DIALYSIS ACCESS SITE 30 MINUTES PRIOR TO TREATMENT--GENERIC FOR EMLA warfarin (COUMADIN) 2.5 On 09/19, take 5 mg 75 tablet 08/2202/16/2020 mg tablet daily then check INR 2/3 documented as of this encounter Progress Notes Deanne Fisher, CHRISTOPHER, C.N.P., M.S.N. - 09/19/2019 12:18 PM CST SUBJECTIVE Ms. Wray was seen and examined while receving intermittent hemodialysis. She denies shortness of breath and is tolerating the dialysis well. Her INR is 1.8 today and therefore she is being prepared to discharge from hospital after dialysis. I have reviewed the current medication list. OBJECTIVE Admission Weight: 97.3 kg Current Weight: 94 kg VITAL SIGNS Temperature: [36.4 ??C-36.5 ??C] 36.5 ??C Resp Rate: [14-16] 16 Blood Pressure: (135-182)/(80-142) 167/88 SpO2: [95 %-98 %] 95 % Pulse Rate: [54-70] 60 Intake/Output Summary (Last 24 hours) at 09/19/2019 1218 Last data filed at 09/19/2019 1145 Gross per 24 hour Intake 1505.94 ml Output 3825 ml Net -2319.06 ml PHYSICAL EXAM General: Alert and oriented, in no acute distress Heart: Regular rate and rhythm Lungs: Clear to auscultation in the anterior lung wilde bilaterally Extremities: There is trace edema of the lower extremities bilaterally Vessels: Right upper extremity AV graft is working well for dialysis with a blood flow rate of 400 mL/min. DIAGNOSTICS I have reviewed labs. ASSESSMENT / PLAN #1 End stage renal disease related to hypertensive nephrosclerosis and in the setting of failed renal transplant, maintained on incenter hemodialysis #2 Multiple issues with dialysis access patency including thrombosed left upper extremity AV fistulaand multiple non functioning tunneled dialysis catheters, on warfarin #3 Status post renal transplant, 2007 #4 Renal allograft ureteral stricture, status post stenting with most recent exchange December 26, 2018 #5 Status post right brachioaxillary AV graft placement May 06, 2019, now working well for dialysis #6 Chronic anemia related to end stage renal disease #7 Secondary hyperparathyroidism related to chronic renal failure #8 Hypertension Ms. Wray is dialyzing today for 3.5 hours with a net removal of 3 L. She is dialyzing with a 2 mEq/L potassium and 2.5 mEq/L calcium. Her next dialysis is planned for Sunday at the [facility] outpatient dialysis unit. Continued recommendations: -- Regular diet is ok as Ms. Wray follows this in the outpatient setting and labs are generallyquite good. -- Continue oral Dialyvite, one tablet each evening -- Hectorol will not be administered in the inpatient setting due to not being available on the [facility] formulary. This will be resumed once Ms. Wray returns to the outpatient dialysis setting. -- Current phosphorus level does not warrant a phosphorus binder. -- Continue oral Bystolic 10 mg daily -- Please continue to have EMLA cream available to apply to Ms. Halls dialysis graft 1 hour prior to needle cannulation. -- When EMLA is applied to Ms. Tirado graft, this should be covered with Saran Wrap in order toensure it remains on the fistula long enough to be effective. -- Prior to admission, the [facility] dialysis unit marked a small area on Ms. Tirado graft which appears to have a nerve next to it, in order to guide the inpatient dialysis nursing staff.This area should not be cannulated and this has been communicated to our inpatient dialysis nursing staff. -- Continue outpatient immunosuppression regimen which includes mycophenolate 250 mg twice daily, prednisone 5 mg daily, and tacrolimus 2 mg twice daily. -- Heparin that is usually administered during dialysis in the outpatient setting will continue to be held while IV heparin is being given so as not to interfere with monitor for the heparin nomogram. This can be resumed at the outpatient dialysis unit after discharge. Thank you for the opportunity to participate in 's care. For questions or concerns, please page the Nephrology A BIOLOGICAL SCIENTIST/PA pager ([phone]). IGERATOR GLAZIER Evelia Perkins C.NDoc, R.N. - 09/18/2019 3:16 PM CST SUBJECTIVE Interval History: Ms. Wray was seen with the Medicine 7 team. She was sitting in bed in no acute distress. She is without pain. Breathing is easy. I have reviewed the current medication list. OBJECTIVE Admission Weight: 97.3 kg Current Weight: 96.1 kg VITAL SIGNS Temperature: [36.3 ??C-36.5 ??C] 36.3 ??C Resp Rate: [12-16] 12 Blood Pressure: (136-175)/(70-85) 175/85 SpO2: [95 %-97 %] 97 % Pulse Rate: [64-67] 64 Intake/Output Last 24 Hours: Intake/Output Summary (Last 24 hours) at 09/18/2019 1516 Last data filed at 09/18/2019 1335 Gross per 24 hour Intake 1595.53 ml Output 275 ml Net 1320.53 ml PHYSICAL EXAM General: No acute distress. Mental: Alert and oriented. Responds appropriately to questions. ENT: Oral mucosa pink and moist. Heart: Regular rhythm and rate; no gallops, murmurs, clicks or rubs. There is a bruit heard in the right upper chest which is transmittance from her AV fistula Lungs: Clear to auscultation bilaterally; no wheezes, rhonchi or rales. Respirations even and non-labored on room air. Abdomen: Soft, nontender, nondistended. Active bowel sounds x 4 quadrants. Extremities: No pedal edema noted. Right upper extremity AV graft cannulated Skin: Warm and dry, well perfused. No new rashes or lesions noted. DIAGNOSTICS I have reviewed labs. ASSESSMENT / PLAN #1 Obstruction Ureteropelvic #2 Anticoagulant Therapy #3 Hyperlipidemia #4 Transplant Renal (HCC) #5 Hypertension And Chronic Kidney Disease Stage 1 To 4 #6 Chronic Failure Renal End Stage Renal Disease Dialysis Dependent (HCC) #7 Thombosis Arteriovenous Fistula Initial ([facility]) #8 Ureteral Stent Exchange #9 Infection Urinary Tract Recurrent 59-year-old female with PMH significant for ESRD requiring hemodialysis MWF with renal transplant (2007), failing in 2017, 2 prior AV fistulas in right arm AV graft on warfarin, ureteral obstruction s/p ureteral stents, chronic right IJ thrombus and hypertension is admitted to the Medicine 7 service for anticoagulation management for ureteral stent exchange in tunneled line removal. Plan: -continue Cipro for prophylaxis in setting of ureteral stent exchange and immunosuppression, stop date 09/19 -continue moderate intensity heparin -continue warfarin per pharmacy, INR goal 1.8 per Nephrology -continue hemodialysis M/W/F per home schedule, apply EMLA topically to AV site 1 hour prior -continue home prednisone, tacrolimus and CellCept -continue to hold phoslo ?? Current activity/mobility: PAMP Level 4 (walks frequently) Diet: general diet Tubes/lines: PIV VTE prophylaxis: therapeutic anticoagulation Disposition: Home, potentially 09/19 IGERATOR GLAZIER Deanne Fisher APRN C.N.P., M.S.N. - 09/18/2019 11:35 AM CST SUBJECTIVE Ms. Wray was seen and examined in her room. She denies shortness of breath and is in good spirits. She underwent dialysis yesterday with a net removal of 2.25 L and a post dialysis weight of 94.4 kg, which she tolerated well. She continues to await an acceptable INR to be able to discharge from the hospital. She is pleased that she has not had any cramping, urgency, frequency, pressure, or significant bleeding since the stent exchange on Sunday. I have reviewed the current medication list. OBJECTIVE Admission Weight: 97.3 kg Current Weight: 96.1 kg VITAL SIGNS Temperature: [36.4 ??C-36.5 ??C] 36.5 ??C Resp Rate: [14-16] 16 Blood Pressure: (136-168)/(70-93) 168/82 SpO2: [95 %-98 %] 96 % Pulse Rate: [61-67] 65 Intake/Output Summary (Last 24 hours) at 09/18/2019 1135 Last data filed at 09/18/2019 0857 Gross per 24 hour Intake 1115.53 ml Output 2500 ml Net -1384.47 ml PHYSICAL EXAM General: Alert and oriented, in no acute distress Heart: Regular rate and rhythm Lungs: Clear to auscultation in the anterior lung wilde bilaterally Extremities: There is no edema of the lower extremities bilaterally Vessels: Right upper extremity AV graft has a bruit and thrill. DIAGNOSTICS I have reviewed labs. ASSESSMENT / PLAN #1 End stage renal disease related to hypertensive nephrosclerosis and in the setting of failed renal transplant, maintained on incenter hemodialysis #2 Multiple issues with dialysis access patency including thrombosed left upper extremity AV fistulaand multiple non functioning tunneled dialysis catheters, on warfarin #3 Status post renal transplant, 2007 #4 Renal allograft ureteral stricture, status post stenting with most recent exchange December 26, 2018 #5 Status post right brachioaxillary AV graft placement May 06, 2019, now working well for dialysis #6 Chronic anemia related to end stage renal disease #7 Secondary hyperparathyroidism related to chronic renal failure #8 Hypertension Ms. Wray has no acute indications for dialysis today. Her next dialysis is planned for tomorrow. Continued recommendations: -- Regular diet is ok as Ms. Wray follows this in the outpatient setting and labs are generallyquite good. -- Continue oral Dialyvite, one tablet each evening -- Hectorol will not be administered in the inpatient setting due to not being available on the [facility] formulary. This will be resumed once Ms. Wray returns to the outpatient dialysis setting. -- Current phosphorus level does not warrant a phosphorus binder. -- Continue oral Bystolic 10 mg daily -- Please continue to have EMLA cream available to apply to Ms. Wray's dialysis graft 1 hour prior to needle cannulation. -- When EMLA is applied to Ms. Halls graft, this should be covered with Saran Wrap in order toensure it remains on the fistula long enough to be effective. -- Prior to admission, the [facility] dialysis unit marked a small area on Ms. Wray's graft which appears to have a nerve next to it, in order to guide the inpatient dialysis nursing staff.This area should not be cannulated. -- Continue outpatient immunosuppressive regimen which includes mycophenolate 250 mg twice daily, prednisone 5 mg daily, and tacrolimus 2 mg twice daily. -- Heparin that is usually administered during dialysis in the outpatient setting will continue to be held while IV heparin is being given so as not to interfere with monitor for the heparin nomogram. New recommendations: -- Discussed warfarin goals with Dr. Martínez, Ms. Wray's outpatient Database D[facility], since Ms. Wray is only on the warfarin for graft patency. We are ok with her discharging if her INR reaches 1.8 and with ongoing follow up at the anticoagulation clinic outpatient. Thank you for the opportunity to participate in 's care. For questions or concerns, please page the Nephrology A BIOLOGICAL SCIENTIST/PA pager ([phone]). IGERATOR GLAZIER Janina Harrell, Pharm.D., R.Ph. - 09/18/2019 8:41 AM CST Warfarin Dosing Progress Note: More information: Shabnam Wray is a 59 y.o. female who was admitted to the hospital on 09/15/2019. Hospital Pharmacy has been consulted for inpatient warfarin management and monitoring. Warfarin Indication: Arterio-Venous graft thrombosis prevention Type of therapy: Resume Prior average daily dose: 5.4 Comorbidities: No known risk Are any of these comorbidities new with admission? No Are there any new medication interactions with admission? No Target INR: 2.5-3.5 Day of therapy: 3 Drug interactions include the following: Cipro (potentiator)- new Warfarin Administrations (last 168 hours) Date/Time Action Medication Dose 09/17/19 1744 Given warfarin tablet 7.5 mg (COUMADIN) 7.5 mg 09/16/19 1700 Given warfarin tablet 7.5 mg (COUMADIN) 7.5 mg INR (no units) Date Value Status 09/18/2019 1.5 Final 09/17/2019 1.1 Final 09/15/2019 1.5 Final A/P: Ms. Wray is admitted for avelina-procedural anticoagulation management. She is on warfarin for AV graft thrombosis prevention. Note higher INR goal of 2.5 - 3.5. Prior to admission warfarin regimen was 5 mg daily, except 7.5 mg on Sunday. Warfarin was held for procedure from 09/13 - 09/16. Subsequently, INR dropped to 1.1. ?? Continues ciprofloxacin, which was started as an outpatient. No other warfarin sensitivity risk factors. She is bridging with IV heparin and will need to remain hospitalized for bridging until INR is 2.5 or greater. INR has jumped from 1.1 to 1.5 today, so will give 6mg of warfarin tonight. Janina Harrell, Pharm.D., R.Ph. IGERATOR GLAZIER Ligia Waldron PharmDaviDDavi, R.Ph. - 09/17/2019 2:38 PM CST Warfarin Dosing Progress Note: More information: Shabnam Wray is a 59 y.o. female who was admitted to the hospital on 09/15/2019. Hospital Pharmacy has been consulted for inpatient warfarin management and monitoring. Warfarin indication: Arterio-Venous graft thrombosis prevention Type of therapy: Resume Prior average daily dose: 5.4 Comorbidities: No known risk Are any of these comorbidities new with admission? No Are there any new medication interactions with admission? No Target INR: 2.5-3.5 Day of therapy: 2 Drug interactions include the following: Strong Potentiator (From admission, onward) None Moderate Potentiators (From admission, onward) Start Dose/Rate Route Frequency Ordered Stop 09/15/192099 ciprofloxacin tablet 500 mg (CIPRO) 500 mg oral Daily at bedtime 09/15/19 1343 09/20/192058 Potentiating (From admission, onward) None Enzyme Inducers (From admission, onward) None Binders (From admission, onward) None Vitamin K-Containing Medications (168h ago, onward) None Antiplatelets & Anticoagulants (168h ago, onward) Start Dose/Rate Route Frequency Ordered Stop 09/16/19 1700 warfarin tablet 7.5 mg (COUMADIN) 7.5 mg oral Once 09/16/19 1149 09/16/19 1700 09/16/19 1145 heparin (porcine) 100 Units/mL in D5W 250 mL infusion 0-40 Units/kg/hr ?? 97.3 kg (Dosing Weight) 0-38.92 mL/hr intravenous Continuous 09/16/19 1130 09/16/19 1145 warfarin management (COUMADIN) oral Daily 09/16/19 1132 09/15/19 1551 heparin (porcine) 1,000 unit/mL injection 2,900 Units 30 Units/kg ?? 97.3 kg (Dosing Weight) intravenous As needed 09/15/19 1551 09/15/19 1551 heparin (porcine) 1,000 unit/mL injection 5,800 Units 60 Units/kg ?? 97.3 kg (Dosing Weight) intravenous As needed 09/15/19 1551 INR reversal agents were not given. Warfarin Reversal Agent Administrations (last 168 hours) Vitamin K and K-Centra None Warfarin Administrations (last 168 hours) Date/Time Action Medication Dose 09/16/19 1700 Given warfarin tablet 7.5 mg (COUMADIN) 7.5 mg INR (no units) Date Value Status 09/17/2019 1.1 Final 09/15/2019 1.5 Final A/P: Ms. Wray is admitted for avelina-procedural anticoagulation management. She is on warfarin for AV graft thrombosis prevention. Note higher INR goal of 2.5 - 3.5. Prior to admission warfarin regimen was 5 mg daily, except 7.5 mg on Sunday. Warfarin was held for procedure from 09/13 - 09/16. Subsequently, INR as dropped to 1.1. Continues ciprofloxacin, which was started as an outpatient. No other warfarin sensitivity risk factors. She is bridging with IV heparin and will need to remain hospitalized for bridging until INR is 2.5 or greater. Will repeat warfarin 7.5 mg dose this evening. Raomna Waldron Pharm.D., R.Ph. [phone] Evelia Meyer C.NDaviP., R.N. - 09/17/2019 1:57 PM CST SUBJECTIVE Interval History: Ms. Wray was seen at hemodialysis with the Medicine 7 team. She was sitting in bed in no acute distress. She is without pain. Breathing is easy. I have reviewed the current medication list. OBJECTIVE Admission Weight: 97.3 kg Current Weight: 96.1 kg VITAL SIGNS Temperature: [36.3 ??C-36.9 ??C] 36.4 ??C Heart Rate: [59-63] 60 Resp Rate: [8-16] 16 Blood Pressure: (124-195)/(66-109) 141/90 SpO2: [92 %-98 %] 98 % Flow Rate (L/min): [2 L/min] 2 L/min Pulse Rate: [60-79] 64 Intake/Output Last 24 Hours: Intake/Output Summary (Last 24 hours) at 09/17/2019 1359 Last data filed at 09/17/2019 1236 Gross per 24 hour Intake 1059.05 ml Output 2595 ml Net -1535.95 ml PHYSICAL EXAM General: No acute distress. Mental: Alert and oriented. Responds appropriately to questions. ENT: Oral mucosa pink and moist. Heart: Regular rhythm and rate; no gallops, murmurs, clicks or rubs. There is a bruit heard in the right upper chest which is transmittance from her AV fistula Lungs: Clear to auscultation bilaterally; no wheezes, rhonchi or rales. Respirations even and non-labored on room air. Abdomen: Soft, nontender, nondistended. Active bowel sounds x 4 quadrants. Extremities: No pedal edema noted. Right upper extremity AV graft cannulated Skin: Warm and dry, well perfused. No new rashes or lesions noted. DIAGNOSTICS I have reviewed labs. ASSESSMENT / PLAN #1 Obstruction Ureteropelvic #2 Anticoagulant Therapy #3 Hyperlipidemia #4 Transplant Renal (HCC) #5 Hypertension And Chronic Kidney Disease Stage 1 To 4 #6 Chronic Failure Renal End Stage Renal Disease Dialysis Dependent (HCC) #7 Thombosis Arteriovenous Fistula Initial ([facility]) #8 Ureteral Stent Exchange #9 Infection Urinary Tract Recurrent 59-year-old female with PMH significant for ESRD requiring hemodialysis MWF with renal transplant (2008), failing in 2017, 2 prior AV fistulas in right arm AV graft on warfarin, ureteral obstruction s/p ureteral stents, chronic right IJ thrombus and hypertension is admitted to the Medicine 7 service for anticoagulation management for ureteral stent exchange in tunneled line removal. Plan: -continue Cipro for prophylaxis in setting of ureteral stent exchange and immunosuppression, stop date 09/19 -continue moderate intensity heparin -continue warfarin per pharmacy -continue hemodialysis M/W/F per home schedule, apply EMLA topically to AV site 1 hour prior -continue home prednisone, tacrolimus and CellCept -continue to hold phoslo ?? Current activity/mobility: PAMP Level 4 (walks frequently) Diet: general diet Tubes/lines: PIV VTE prophylaxis: therapeutic anticoagulation Disposition: Home IGERATOR GLAZIER Deanne Fisher APRN C.N.P., M.S.N. - 09/17/2019 12:45 PM CST SUBJECTIVE Ms. Wray was seen and examined while receving intermittent hemodialysis. She is tolerating the dialysis well and denies shortness of breath. She tells me that her ureter stent exchange went well yesterday. She is pleased that she has had nearly no bleeding and no cramping following this. Her warfarin has been resumed and we are awaiting a therapeutic INR. I have reviewed the current medication list. OBJECTIVE Admission Weight: 97.3 kg Current Weight: 96.1 kg VITAL SIGNS Temperature: [36.3 ??C-36.9 ??C] 36.6 ??C Heart Rate: [59-63] 60 Resp Rate: [8-18] 16 Blood Pressure: (124-195)/(66-109) 166/90 SpO2: [92 %-98 %] 98 % Flow Rate (L/min): [2 L/min] 2 L/min Pulse Rate: [60-79] 64 Intake/Output Summary (Last 24 hours) at 09/17/2019 1245 Last data filed at 09/17/2019 0910 Gross per 24 hour Intake 1059.05 ml Output 195 ml Net 864.05 ml PHYSICAL EXAM General: Alert and oriented, in no acute distress Heart: Regular rate and rhythm Lungs: Clear to auscultation in the anterior lung wilde bilaterally Extremities: There is no edema of the lower extremities bilaterally Vessels: Right upper extremity AV graft is working well for dialysis. DIAGNOSTICS I have reviewed labs. ASSESSMENT / PLAN #1 End stage renal disease related to hypertensive nephrosclerosis and in the setting of failed renal transplant, maintained on incenter hemodialysis #2 Multiple issues with dialysis access patency including thrombosed left upper extremity AV fistulaand multiple non functioning tunneled dialysis catheters, on warfarin #3 Status post renal transplant, 2007 #4 Renal allograft ureteral stricture, status post stenting with most recent exchange December 26, 2018 #5 Status post right brachioaxillary AV graft placement May 06, 2019, now working well for dialysis #6 Chronic anemia related to end stage renal disease #7 Secondary hyperparathyroidism related to chronic renal failure #8 Hypertension Ms. Wray is dialyzing today for 3.5 hours with a net removal of 2.25 L. She is dialyzing with a2 mEq/L potassium and 2.5 mEq/L calcium. Her next dialysis is planned for Sunday. Continued recommendations: -- Regular diet is ok as Ms. Wray follows this in the outpatient setting and labs are generallyquite good. -- Continue oral Dialyvite, one tablet each evening -- Hectorol will not be administered in the inpatient setting due to not being available on the [facility] formulary. This will be resumed once Ms. Wray returns to the outpatient dialysis setting. -- Current phosphorus level does not warrant a phosphorus binder. -- Continue oral Bystolic 10 mg daily -- Please continue to have EMLA cream available to apply to Ms. Tirado dialysis graft 1 hour prior to needle cannulation. -- Prior to admission, the [facility] dialysis unit marked a small area on Ms. Tirado graft which appears to have a nerve next to it, in order to guide the inpatient dialysis nursing staff.This area should not be cannulated. -- Continue outpatient immunosuppressive regimen which includes mycophenolate 250 mg twice daily, prednisone 5 mg daily, and tacrolimus 2 mg twice daily. -- Heparin that is usually administered during dialysis is being held today so as not to interfere with monitor for the heparin nomogram. New recommendations: -- When EMLA is applied to Ms. Tirado graft, this should be covered with Saran Wrap in order toensure it remains on the fistula long enough to be effective. Thank you for the opportunity to participate in 's care. For questions or concerns, please page the Nephrology A BIOLOGICAL SCIENTIST/PA pager ([phone]). IGERATOR GLAZIER Associated attestation - Marva Leonardo M.D. - 09/17/2019 1:32 PM REFRIGERATOR GLAZIER I was the supervising physician in the delivery of the service. I have seen the patient during dialysis and I agree with the assessment and plan of Deanne Mojica CNP. Shabnam Wray is a 59 y.o. female who has history of ESRD related to hypertensive nephrosclerosis. She has a failed renal transplant. She has month immunosuppression. She also has history of her renal allograft ureteral stricture and in the setting of anticoagulation because of her left upper extr emity AV fistula recurrent thrombosis she was admitted for bridging heparin. Patient tolerated well dialysis Geraldo Salinas M.D. - 09/16/2019 3:45 PM CST Underwent successful right ureteral stent exchange. Please place in the discharge instructions that she should follow-up with her primary Urology team in 3 to 4 months for stent exchange. IGERATOR GLAZIER Ligia Waldron, D., R.Ph. - 09/16/2019 11:49 AM CST Warfarin Dosing Progress Note: More information: Shabnam Wray is a 59 y.o. female who was admitted to the hospital on 09/15/2019. Hospital Pharmacy has been consulted for inpatient warfarin management and monitoring. Warfarin indication: Arterio-Venous graft thrombosis prevention Type of therapy: Resume Prior average daily dose: 5.4 Comorbidities: No known risk Are any of these comorbidities new with admission? No Are there any new medication interactions with admission? No Target INR: 2.5-3.5 Day of therapy: 1 Drug interactions include the following: Strong Potentiator (From admission, onward) None Moderate Potentiators (From admission, onward) Start Dose/Rate Route Frequency Ordered Stop 09/15/19 2100 ciprofloxacin tablet 500 mg (CIPRO) 500 mg oral Daily at bedtime 09/15/19 1343 09/20/192058 Potentiating (From admission, onward) None Enzyme Inducers (From admission, onward) None Binders (From admission, onward) None Vitamin K-Containing Medications (168h ago, onward) None Antiplatelets & Anticoagulants (168h ago, onward) Start Dose/Rate Route Frequency Ordered Stop 09/16/19 1700 warfarin tablet 7.5 mg (COUMADIN) 7.5 mg oral Once 09/16/19 1149 09/16/19 2345 09/16/19 1145 heparin (porcine) 100 Units/mL in D5W 250 mL infusion 0-40 Units/kg/hr ?? 97.3 kg (Dosing Weight) 0-38.92 mL/hr intravenous Continuous 09/16/19 1130 09/16/19 1145 warfarin management (COUMADIN) oral Daily 09/16/19 1132 09/15/19 1551 heparin (porcine) 1,000 unit/mL injection 2,900 Units 30 Units/kg ?? 97.3 kg (Dosing Weight) intravenous As needed 09/15/19 1551 09/15/19 1551 heparin (porcine) 1,000 unit/mL injection 5,800 Units 60 Units/kg ?? 97.3 kg (Dosing Weight) intravenous As needed 09/15/19 1551 INR reversal agents were not given. Warfarin Reversal Agent Administrations (last 168 hours) Vitamin K and K-Centra None Warfarin Administrations (last 168 hours) None INR (no units) Date Value Status 09/15/2019 1.5 Final A/P: Ms. Wray is admitted for avelina-procedural anticoagulation management. She is on warfarin for AV graft thrombosis prevention. Note higher INR goal of 2.5 - 3.5. Prior to admission warfarin regimen was 5 mg daily, except 7.5 mg on Sunday. She has been holding warfarin since 09/13 in preparation for her procedure, which occurred today. INR is 1.5. Continues ciprofloxacin, which was started as an outpatient. No other warfarin sensitivity risk factors. She is bridging with IV heparin and will need to remain hospitalized for bridging until INR is 2.5 or greater. Will resume warfarin tonight with 7.5 mg dose. Ramona Waldron Pharm.D., R.Ph. [phone] IGERATOR GLAZIER Stephany Vick P.A.-C., M.S. - 09/16/2019 7:33 AM CST [place] [id number] ([facility]) Progress Note SUBJECTIVE CC: Anticoagulation management prior to ureteral stent exchange in tunneled line removal Interval History: Patient was seen on morning rounds. Her removal of her tunneled line was completedwithout complication. No shortness of breath, increasing leg swelling or any pain. Review of symptoms positive for what is listed in HPI, otherwise negative. I have reviewed the current medication list. OBJECTIVE VITAL SIGNS Temperature: [36.2 ??C-36.7 ??C] 36.5 ??C Resp Rate: [16-18] 18 Blood Pressure: (127-180)/(70-101) 127/70 SpO2: [96 %-97 %] 96 % Pulse Rate: [62-73] 66 PHYSICAL EXAM General: No acute distress. Mental: Awake, alert and oriented x3. Responds appropriately to questions. Eyes: PERRLA, EOM intact ENT: Oral mucosa pink and moist. Oropharynx clear. Cardiovascular: Regular rhythm and rate; orsalis pedis pulses present. Lungs: Clear to auscultation bilaterally; . Respirations even and non-labored on room air. Abdomen: Soft, nontender, nondistended, and no guarding. Skin: Warm and dry, well perfused. No new rashes or lesions noted. Area over right anterior thorax were tunneled catheter was removed does not show any hematoma, erythema, no pain to palpation. Neuro: No focal deficits. DIAGNOSTICS I have personally reviewed labs, EMR, and imaging. ASSESSMENT / PLAN Ms. Wray is hospitalized on [place] [id number] ([facility]) for evaluation and management of Obstruction Ureteropelvic. 59-year-old female with PMH significant for ESRD requiring hemodialysis MWF with renal transplant (2007), failing in 2017, 2 prior AV fistulas in right arm AV graft on warfarin, ureteral obstruction s/p ureteral stents, chronic right IJ thrombus and hypertension is admitted to the Medicine 7 service for anticoagulation management for ureteral stent exchange in tunneled line removal. Last warfarin dose was taken on 09/12/2019. She was started on heparin nomogram given concerns for thrombosis. #1 Obstruction Ureteropelvic #2 Ureteral Stent Exchange #3 Chronic Failure Renal End Stage Renal Disease Dialysis Dependent (HCC) #4 Transplant Renal (HCC) #5 Anticoagulant Therapy on warfarin for AV graft thrombosis prevention Underwent ureteral stent exchange and tunnel dialysis removal today without complication. Plan to continue heparin therapy and begin warfarin tonight. INR on admission is 1.5. Target INR 2.5-3.5 -continue moderate intensity heparin -resume 7.5 mg warfarin in p.m., appreciate bridging management to be followed by pharmacy -hemodialysis tomorrow morning, apply EMLA topically to AV site 1 hour prior -repeat BMP in a.m. with phosphorus -continue home prednisone, tacrolimus and CellCept -hold home sevelamer -per Nephrology she may be on a regular diet #6 Hypertension And Chronic Kidney Disease Stage 1 To 4 -continue home nebivolol #7 Hyperlipidemia -continue home statin #8 Infection Urinary Tract Recurrent -continue ciprofloxacin #9 Morbid Obesity, BMI 36.8 Current activity/mobility: PAMP Level 4 (walks frequently) Diet: general diet Tubes/lines: PIV VTE prophylaxis: therapeutic anticoagulation Disposition: Home Stable to discharge criteria (not yet met): Tests/procedures/consults Counseling was provided [id number] at bedside regarding the plan of care as stated above. I personally spent over half of a total 40 minutes in counseling and coordination of care as documented above. Stephany Vick P.A.-C., M.S. IGERATOR GLAZIER documented in this encounter H&P Notes Pranay Strauss M.D. - 09/15/2019 1:43 PM CST RST Medicine 7 ([facility]) Admission Note SUBJECTIVE CHIEF COMPLAINT Anticoagulation management prior to ureteral stent exchange and tunneled line removal HISTORY OF PRESENT ILLNESS Ms. Shabnam Wray is a 59 y.o. woman with a history of ESRD in the setting of uncontrolled hypertension??requiring??IHD on Sunday/Sunday/Sunday with previous renal transplant??in??2008??which failed in??2017,??2??previous AV fistulas??with a right arm brachioaxillary??AV graft??on chronic antic oagulation, ureteral obstruction s/p stenting, chronic right IJ thrombus, and hypertension. She was admitted for management of anticoagulation prior to ureteral stent exchange and tunneled line removal. Per the patient, she reports that she has had clotting difficulties with her fistulas in the past tothe point that she is now on anticoagulation. She had been dialyzing from a tunneled line while awaiting her graft on her RUE to mature, which it now has. Consequently, she is planned to have the line removed. At the same time, she routinely has a ureteral stent to her renal transplant exchanged. Given concerns for clotting her new graft while off of anticoagulation for these procedures, she was planned for admission with bridging of her anticoagulation. She reports that her last dose of warfarin was on Sunday night. She tells me that she normally takes5 mg daily except on Wednesdays where she takes 7.5 mg, which is discordant with our med rec. She notes though that she has labil INRs recently. I have reviewed and updated the following: Past Medical History, Family History, Social History, andAllergies. Current Outpatient Medications on File Prior to Encounter: ??? Bystolic 10 mg tablet, TAKE 1 TABLET(10 MG) BY MOUTH DAILY, 09/14/2019 at Unknown time ??? calcium carbonate (TUMS) 500 mg (200 mg calcium) chewable tablet, Chew 2 tablets 2 (two) times aday with meals. Lunch and dinner. , 09/14/2019 at Unknown time ??? gabapentin (NEURONTIN) 100 mg capsule, Take 2 capsules (200 mg total) by mouth 2 (two) times a day., 09/14/2019 at Unknown time ??? hydrocortisone (for_HYTONE) 2.5 % cream, Apply 1 application topically daily as needed (Eczema)., Past Month at Unknown time ??? multivitamin renal failure (DIALYVITE) 100-1 mg tablet, Take 1 tablet by mouth every evening., 09/14/2019 at Unknown time ??? mycophenolate (CELLCEPT) 250 mg capsule, Take 1 capsule (250 mg total) by mouth 2 (two) times a day. Do not break, cut, or open capsules., 09/15/2019 at Unknown time ??? predniSONE (DELTASONE) 5 mg tablet, Take 5 mg by mouth daily., 09/14/2019 at Unknown time ??? predniSONE (DELTASONE) 5 mg tablet, TAKE 1 TABLET(5 MG) BY MOUTH DAILY, 09/14/2019 at Unknown time ??? rosuvastatin (CRESTOR) 5 mg tablet, Take 1 tablet (5 mg total) by mouth daily. (Patient taking differently: Take 5 mg by mouth at bedtime. ), 09/14/2019 at Unknown time ??? tacrolimus (PROGRAF) 1 mg capsule, Take 2 capsules (2 mg total) by mouth 2 (two) times a day., 09/15/2019 at Unknown time ??? warfarin (COUMADIN) 1 mg tablet, Take as directed per After Visit Summary., Past Week at Unknowntime ??? warfarin (COUMADIN) 2.5 mg tablet, As of 08/14/2019, dose is 7.5 mg on Mondays, Wednesdays and Fridays; 5 mg on Tuesdays, , Saturdays and Sundays., Past Week at Unknown time ??? [DISCONTINUED] lidocaine-prilocaine (EMLA) 2.5-2.5 % cream, Apply 1 application topically as directed. (Patient taking differently: Apply 1 application topically as directed. For Port access ), 09/15/2019 at Unknown time ??? acetaminophen (TYLENOL) 500 mg tablet, Take 2 tablets (1,000 mg total) by mouth every 6 (six) hours as needed for pain., More than a month at Unknown time ??? [DISCONTINUED] docusate sodium (COLACE) 100 mg capsule, Take 100 mg by mouth at bedtime. ??? [DISCONTINUED] nicotine (NICODERM CQ) 14 mg/24 hr patch, Apply 14 mg patch daily for four to sixweeks, then taper to 7 mg for two to six weeks until off. ??? [DISCONTINUED] omeprazole (PriLOSEC) [address] capsule, Take 1 capsule (40 mg total) by mouth 2 (two) times a day before breakfast and dinner. (Patient not taking: Reported on 05/31/2019 ), Not Taking at Unknown time ??? [DISCONTINUED] sennosides-docusate sodium (SENOKOT-S) 8.6-50 mg per tablet, Take 2 tablets by mouth at bedtime as needed for constipation. (Patient not taking: Reported on 05/31/2019 ), Not Taking at Unknown time REVIEW OF SYSTEMS Pertinent items are noted in HPI; all other review of systems was negative. OBJECTIVE VITAL SIGNS Height: [162.6 cm] 162.6 cm Weight: [97.3 kg] 97.3 kg BSA (Calculated - sq m): [2.09 sq meters] 2.09 sq meters BMI (Calculated): [36.8 kg/m??] 36.8 kg/m?? PHYSICAL EXAM GEN: awake and alert, no acute distress SKIN: grossly inspected and without irregularities; no purpura, petechiae EYES: conjunctiva non-injected, sclera non-icteric ENT/MOUTH: oral cavity without erythema or ulceration HEART: regular rate and rhythm, no murmurs, no rubs, no gallops LUNG: no increased work of breathing, no wheezing, no crackles ABD: non distended, soft, non tender NEURO: CN II-XII grossly intact MSK: fistula noted with appropriate thrill on RUE; port in place about right chest without tenderness; scars of prior fistula appreciated on LUE PSYCH: mood appropriate, affect full range ASSESSMENT / PLAN Ms. Shabnam Wray is a 59 y.o. woman with a history of ESRD in the setting of uncontrolled hypertension??requiring??IHD on MWF with previous renal transplant??in??2008??which failed in??2017,??2??previous AV fistulas??with a right arm brachioaxillary??AV graft??on chronic anticoagulation, ureteral obstruction s/p stenting, chronic right IJ thrombus, and hypertension. She was admitted for management of anticoagulation prior to ureteral stent exchange and tunneled line removal. # ESRD w/ hx of renal transplant # Current RUE graft on prophylactic anticoagulation w/ goal INR 2.5-3.5 # Ureteral Stent Exchange # Tunneled dialysis line - INR on admission 1.5; will start heparin nomogram - I spoke to urology who stated that she is planned for stent exchange tomorrow - order placed for tunneled line removal in the PM; will need to coordinate to see when ureteral stent exchange is. - warfarin may be able to be resumed as early as tomorrow night - nephrology consult for IHD on Sunday, anticipating that she will need to remain hospitalized until INR reaches goal of 2.5 - daily vitamin K replacement may help stabilize the lability of her INRs - continue home gabapentin 200 mg BID - plan to repeat AM BMP on Sunday prior to dialysis - continue prednisone, tacrolimus, Cellcept # Hypomagnesemia - 1 mg IV mag sulf, given ESRD # Nicotine dependence - start nicotine patch, patient counseled on smoking cessation # Hypertension - continue home nebivolol # Hyperlipidemia - continue home Crestor # Recent UTI - continue ciprofloxacin Diet: renal dialysis diet, NPO after midnight Tubes/lines: tunneled line VTE prophylaxis: therapeutic anticoagulation Code status: Full Code Disposition: Home Counseling was provided [id number] at bedside regarding the plan of care as stated above. I personally spent over half of a total 70 minutes in counseling and coordination of care as documented above. IGERATOR GLAZIER documented in this encounter Consult Notes Deanne Fisher, CHRISTOPHER, C.N.P., M.S.N. - 09/16/2019 1:25 PM CST SUBJECTIVE Consults Reason for Consult: ESRD on IHD MWF w/ renal tx; routine dialysis on Sunday CHIEF COMPLAINT Management of hemodialysis while hospitalized for Ureteral Stent Exchange [Z46.6]. HISTORY OF PRESENT ILLNESS Ms. Wray is a 59 y.o. female who has a history of end stage renal disease related to hypertensive nephrosclerosis and in the setting of a failed renal transplant, and has required dialysis most recently since 2017. She has a history of renal transplant in 2008 with failure in 2017. She has been admitted for heparin bridging in order to undergo allograft ureter stent exchange and removed of her tunneled dialysis catheter, since we are able to successfully utilize her right upper extremity AV graft. This is in the setting of multiple thrombosed dialysis accesses in the past and requiring warfarin therapy to maintain patency of her access. Of note, even prior to warfarin being started, Ms. Wray experienced several days of bleeding post ureter stent exchanges in the past. Ms. Wray normally dialyzes on Sunday, Sunday and Sunday at [facility]. She normally dialyzes for 3.5 hours with a 138 sodium, 2 potassium, 2.5 calcium, and 35 bicarbonate dialysate at a temperature of 36 degrees Celsius. Her estimated dry weight is 93.4 kg. Her dialysis access is a right upper extremity AV graft. Hectorol 1.5 mcg IV is administered on Sunday, Sunday and Sunday. Heparin 2000 units prime and 1500 units per hour maintenance is administered during Ms. Wray's dialysis in the outpatient setting. Ms. Wray is seen in her room. She is feeling well today and pleased that her dialysis catheter has already been removed. She is awaiting stent exchange this afternoon. She denies shortness of breath. She tolerates dialysis well in the outpatient setting. She underwent a full dialysis session yesterday in the outpatient setting. REVIEW OF SYSTEMS Pertinent items are noted in HPI; all other review of systems was negative. OBJECTIVE Admission Weight: 97.3 kg Current Weight: 94.8 kg VITAL SIGNS Temperature: [36.2 ??C-36.7 ??C] 36.5 ??C Resp Rate: [16-18] 18 Blood Pressure: (127-180)/(70-101) 127/70 SpO2: [96 %-99 %] 96 % Pulse Rate: [62-76] 66 Intake/Output Summary (Last 24 hours) at 09/16/2019 1325 Last data filed at 09/16/2019 0928 Gross per 24 hour Intake 100 ml Output 250 ml Net -150 ml PHYSICAL EXAM General: Alert and oriented, sitting up in the recliner, in no acute distress Heart: Regular rate and rhythm Lungs: Clear to auscultation in the anterior and posterior lung wilde bilaterally Extremities: There is no edema of the lower extremities bilaterally Vessels: Right upper extremity AV graft has an excellent bruit and thrill. Right IJ tunneled hemodialysis catheter has been removed well. There is a gauze dressing over the exit site and no active bleeding is noted. DIAGNOSTICS Lab Results Component Value Date HGB 12.3 09/16/2019 WBC 6.7 09/16/2019 PLT 140 (L) 09/16/2019 NA 135 09/15/2019 K 4.2 09/15/2019 CL 94 (L) 09/15/2019 HCO3 28 06/05/2019 BUN 16 09/15/2019 CREATININE 3.91 (H) 09/15/2019 CALCIUM 9.3 09/15/2019 ALBUMIN 4.2 01/28/2019 LABPHOS 3.4 09/15/2019 MG 1.6 (L) 09/15/2019 ASSESSMENT / PLAN #1 End stage renal disease related to hypertensive nephrosclerosis and in the setting of failed renal transplant, maintained on incenter hemodialysis #2 Multiple issues with dialysis access patency including thrombosed left upper extremity AV fistulaand multiple non functioning tunneled dialysis catheters, on warfarin #3 Status post renal transplant, 2007 #4 Renal allograft ureteral stricture, status post stenting with most recent exchange December 26, 2018 #5 Status post right brachioaxillary AV graft placement May 06, 2019, now working well for dialysis #6 Chronic anemia related to end stage renal disease #7 Secondary hyperparathyroidism related to chronic renal failure #8 Hypertension #9 Hepatitis B surveillance Hepatitis B surface antibody was noted to have a quantitative value of < 3 on July 08, 2018. As Ms. Wray has not developed immunity to hepatitis B, per dialysis guidelines, she requires monthly hepatitis B surface antigen monitoring. Her most recent hepatitis B surface antigen was negativeon August 11, 2019. I have added an antigen to her labs from today. has no acute indications for dialysis today. Her next dialysis is planned for tomorrow. Additional recommendations: -- Regular diet is ok as Ms. Wray follows this in the outpatient setting and labs are generallyquite good. -- Continue oral Dialyvite, one tablet each evening -- Hectorol will not be administered in the inpatient setting due to not being available on the [facility] formulary. This will be resumed once Ms. Wray returns to the outpatient dialysis setting. -- Current phosphorus level does not warrant a phosphorus binder. -- Please check a phosphorus level with next set of labs. -- Continue oral Bystolic 10 mg daily -- Please have EMLA cream available to apply to Ms. Wray's dialysis graft 1 hour prior to needle cannulation. -- Yesterday at the [facility] dialysis unit, we marked a small area on Ms. Halls graftwhich appears to have a nerve next to it, in order to guide the inpatient dialysis nursing staff. This area should not be cannulated. -- Continue outpatient immunosuppressive regimen which includes mycophenolate 250 mg twice daily, prednisone 5 mg daily, and tacrolimus 2 mg twice daily. -- Heparin that is usually administered during dialysis will be be held tomorrow so as not to interfere with monitor for the heparin nomogram. Thank you for the opportunity to participate in 's care. For questions or concerns, please page the Nephrology A BIOLOGICAL SCIENTIST/PA pager ([phone]). IGERATOR GLAZIER documented in this encounter Nursing Notes Leta Wolff R.N. - 09/19/2019 9:37 AM CST Shift Goals: Clinical Goals for the Shift: Patient will discharge home self care. Identify possible barriers to meeting goals/advancing plan of care: None End of Shift Summary: Highlighted AVS discussed with the patient. Patient verbalized an understanding taking 5mg of Warfarin , Sunday, and Sunday, as well as ongoing monitoring of her INR w/ follow up needed to be scheduled on 09/22 at her local hospital. Patient had no further questions. Problem: SAFETY ADULT Goal: Maintain a safe environment Outcome: Completed Problem: PAIN - ADULT Goal: PT VERBALIZES/DEMONSTRATES ADEQUATE COMFORT LEVEL OR BASELINE Outcome: Completed Problem: KNOWLEDGE DEFICIT Goal: Patient/family/caregiver demonstrates understanding of disease process, treatment plan, medications, and discharge instructions Outcome: Completed Problem: INFECTION - ADULT Goal: Absence of infection during hospitalization Outcome: Completed Problem: SKIN/TISSUE INTEGRITY Goal: Skin/Tissue integrity maintained or improved Outcome: Completed Goal: Oral and Nasal mucous membranes remain intact Outcome: Completed Problem: DISCHARGE PLANNING Goal: Patient discharge needs identified Outcome: Completed IGERATOR GLAZIER Radha Fatima R.N. - 09/18/2019 5:43 PM CST Shift Goals: Clinical Goals for the Shift: Patient will have adequate pain control today Identify possible barriers to meeting goals/advancing plan of care: None End of Shift Summary: Patient pain has been well controlled today. Goal for INR to reach 1.8 in order to DC. IGERATOR GLAZIER Radha Fatima R.N. - 09/17/2019 5:48 PM CST Shift Goals: Clinical Goals for the Shift: Patient will walk in the ritter today Identify possible barriers to meeting goals/advancing plan of care: None End of Shift Summary: Patient has ambulated in the ritter once today. She had dialysis this morning. Soraya Burleson R.N. - 09/16/2019 9:41 PM CST Problem: SAFETY ADULT Goal: Maintain a safe environment Outcome: Progressing Problem: SAFETY ADULT - RISK FOR FALL AND OR FALL INJURY Goal: Patient remains free from fall/fall injury Outcome: Progressing Problem: PAIN - ADULT Goal: PT VERBALIZES/DEMONSTRATES ADEQUATE COMFORT LEVEL OR BASELINE Outcome: Progressing Problem: KNOWLEDGE DEFICIT Goal: Patient/family/caregiver demonstrates understanding of disease process, treatment plan, medications, and discharge instructions Outcome: Progressing Problem: INFECTION - ADULT Goal: Absence of infection during hospitalization Outcome: Progressing Problem: SKIN/TISSUE INTEGRITY Goal: Skin/Tissue integrity maintained or improved Outcome: Progressing Goal: Oral and Nasal mucous membranes remain intact Outcome: Progressing Problem: DISCHARGE PLANNING Goal: Patient discharge needs identified Outcome: Progressing Shift Goals: Patient will tolerate PO intake. Identify possible barriers to meeting goals/advancing plan of care: none End of Shift Summary: Patient reports no pain. Able to tolerate dinner this evening. Up ad dorothea. Jon Carrasco R.N. - 09/16/2019 2:59 PM CST Denies chest pain or shortness of breath. Denies any metal on body. Intraoperative routine discussedwith no questions from the patient. No complaints of pain. Has a good understanding of planned procedure. No family in house at time of interview, but contact numbers available. Pt with glasses to OR; removed, cased, labeled, placed onto chart. Pt with multiple scattered bruises throughout; on Heparindrip for fistula clotting. Right chest dressed with gauze and tegaderm. IGERATOR GLAZIER documented in this encounter OR Notes Op Note - Geraldo Salinas M.D. - 09/16/2019 3:31 PM CST FULL OP NOTE Procedure(s) (LRB): EXCHANGE URETERAL STENT. (Right) Retrograde Pyelogram (Right) Surgeon(s) and Role: * Jakub Ray M.D., Ph.D. - Primary * Geraldo Salinas M.D. - Ground Operations Superintendent * Adam Craig M.D. - Supervising Manager Winter Anesthesia Type General Pre-operative Diagnosis Obstruction Ureteropelvic Post-operative Diagnosis Obstruction Ureteropelvic Findings As expected. Complications None Description of Procedure Patient was placed under general sedation, was positioned in the dorsal lithotomy position. Patient was prepped and draped in the usual sterile fashion. After appropriate time-out identifying patient ID, laterality, allergies, antibiotics given we proceed with a cystourethroscopy which revealed a normal urethra without evidence of tumors, strictures, lesions. Bladder demonstrated no obvious tumor, lesions, strictures. Within noted this stent to be emanating from a ureteral orifice which is at the right dome of the bladder consistent with history of right renal transplant.There was no encrustation. A 0.035 sensor tip guidewire was then advanced alongside the stent until the wire was seen in the kidney pelvis. We then proceeded to grasp the stent and externalize the stent to the meatus and removed.We then backloaded our cystoscope over the wire and then advanced the tiger tail into the right ureter. Right retrograde pyelogram revealed mild hydronephrosis. The tiger tail was then removed and we then advanced an 8 x 20 stent over the wire to the level of the right renal pelvis and verified under fluoroscopy. We then achieved a good proximal curl as verified by fluoroscopy. We then achieved a good distal curl as verified by direct vision and fluoroscopy. The patient tolerated the procedure well and was transferred to the PACU in stable condition. Specimens None Drains None Estimated Blood Loss None Implants Implant Name Type Inv. Item Serial No. Ob/Gyn Doctor Lot No. LRB No. Used Action STNT URET INL 8FX20 - [id number] Ureteral Stent STNT URET INL 8FX20 [employer] [id number] Right 1 Explanted STNT URET INL 8FX20 - [id number] Ureteral Stent STNT URET INL 8FX20 [employer] [id number] Right 1 Implanted Geraldo Sailnas M.D. IGERATOR GLAZIER documented in this encounter Miscellaneous Notes Hospital Course - Evelia Perkins C.N.P., R.N. 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 Last warfarin dose was taken on 09/12/2019. She was started on heparin nomogram given concerns for prior AV fistula thrombosis. Underwent ureteral stent exchange and tunnel dialysis removal 09/16/2019 without complication. INR on admission was 1.5. Target INR 2.5-3.5. She continued to be hospitalize for bridging to achieve target INR goal of 1.8. IGERATOR GLAZIER documented in this encounter Plan of Treatment Upcoming Encounters Date Type Specialty Care Team Description 06/01/2022 Telemedicine Pharmacy An Nicholas APRN C.N.P., D.N.P., M.S.N. [address] [place] [address] [phone] (Nicolas wen) 07/31/2022 Lab Laboratory Medicine Tony Rubalcava M. B., Sydnie, MDebra [address] [place] [address] [phone] (Nicolas wen) 07/31/2022 Lab Laboratory Medicine Tony Rubalcava M. B., Sydnie, Mukund [address] [place] [address] [phone] (Wo rk) 07/31/2022 Office Visit Transplant Tony Rubalcava M.B., Sydnie, Mukund [address] [place] [address] [phone] (Wo rk) 07/31/2022 Appointment Radiology Tony Rubalcava M.B., Sydnie, Mukund [address] [place] [address] [phone] ( rk) 08/01/2022 Office Visit Transplant Tony Rubalcava M.B., Sydnie, Mukund [address] [place] [address] [phone] ( rk) 08/01/2022 Clinical Support Transplant Tony Rubalcava M.B., Sydnie, Mukund [address] [place] [address] [phone] ( rk) documented as of this encounter Procedures Procedure Name Priority Date/Time Associated Comments Diagnosis PROTHROMBIN TIME Routine 09/19/2019 4:02 Results for (PT), P AM REFRIGERATOR GLAZIER this procedure are in the results section. HEPARIN LEVEL Routine 09/19/2019 4:02 Results for ANTI-XA ASSAY, P AM REFRIGERATOR GLAZIER this proced ure are in the results section. CBC WITHOUT Routine 09/19/2019 4:02 Results for DIFFERENTIAL, B AM REFRIGERATOR GLAZIER this procedu re are in the results section. HEMODIALYSIS Routine 09/18/2019 11:45 AM REFRIGERATOR GLAZIER PROTHROMBIN TIME Routine 09/18/2019 5:59 Results for (PT), P AM REFRIGERATOR GLAZIER this procedure are in the results section. HEPARIN LEVEL Routine 09/18/2019 5:59 Results for ANTI-XA ASSAY, P AM REFRIGERATOR GLAZIER this proced ure are in the results section. CBC WITHOUT Routine 09/18/2019 5:59 Results for DIFFERENTIAL, B AM REFRIGERATOR GLAZIER this procedu re are in the results section. HEPARIN LEVEL Timed 09/17/2019 Results for ANTI-XA ASSAY, P 11:00 PM REFRIGERATOR GLAZIER this proced ure are in the results section. HEPARIN LEVEL STAT 09/17/2019 4:51 Results for ANTI-XA ASSAY, P PM REFRIGERATOR GLAZIER this proced ure are in the results section. PROTHROMBIN TIME Timed 09/17/2019 4:42 Results for (PT), P AM REFRIGERATOR GLAZIER this procedure are in the results section. HEPARIN LEVEL Timed 09/17/2019 4:42 Results for ANTI-XA ASSAY, P AM REFRIGERATOR GLAZIER this proced ure are in the results section. CBC WITHOUT Timed 09/17/2019 4:42 Results for DIFFERENTIAL, B AM REFRIGERATOR GLAZIER this procedu re are in the results section. PHOSPHORUS Timed 09/17/2019 4:42 Results for (INORGANIC), S AM REFRIGERATOR GLAZIER this procedur e are in the results section. BASIC METABOLIC Timed 09/17/2019 4:42 Results f or PANEL, S/P AM REFRIGERATOR GLAZIER this procedure are in the results section. HEPARIN LEVEL Timed 09/16/2019 9:11 Results for ANTI-XA ASSAY, P PM REFRIGERATOR GLAZIER this proced ure are in the results section. FL FLUORO LESS THAN RAD - Routine 09/16/2019 3:54 Resu lts for 1 HOUR (most inpatients PM REFRIGERATOR GLAZIER this proced ure and all are in the outpatients) results section. RETROGRADE PYELOGRAM 09/16/2019 2:42 Obstruction PM REFRIGERATOR GLAZIER Ureteropelvic EXCHANGE URETERAL 09/16/2019 2:42 Obstruction STENT PM REFRIGERATOR GLAZIER Ureteropelvic HEMODIALYSIS Routine 09/16/2019 2:07 PM REFRIGERATOR GLAZIER HEPARIN LEVEL Timed 09/16/2019 1:58 Results for ANTI-XA ASSAY, P PM REFRIGERATOR GLAZIER this proced ure are in the results section. IR DIALYSIS / HIGH RAD - Routine 09/16/2019 Results for FLOW CATHETER (most inpatients 11:03 AM REFRIGERATOR GLAZIER this proce dure REMOVAL and all are in the outpatients) results section. HEPARIN LEVEL Timed 09/16/2019 6:49 Results for ANTI-XA ASSAY, P AM REFRIGERATOR GLAZIER this proced ure are in the results section. CBC WITHOUT Routine 09/16/2019 6:49 Results for DIFFERENTIAL, B AM REFRIGERATOR GLAZIER this procedu re are in the results section. HEPARIN LEVEL Timed 09/16/2019 Results for ANTI-XA ASSAY, P 12:29 AM REFRIGERATOR GLAZIER this proced ure are in the results section. ACTIVATED PARTIAL STAT 09/15/2019 5:17 Results for THROMBOPLASTIN TIME PM REFRIGERATOR GLAZIER this pro cedure (APTT), P are in the results section. PROTHROMBIN TIME STAT 09/15/2019 1:56 Results for (PT), P PM REFRIGERATOR GLAZIER this procedure are in the results section. CBC WITH STAT 09/15/2019 1:56 Results for DIFFERENTIAL, B PM REFRIGERATOR GLAZIER this procedu re are in the results section. PHOSPHORUS STAT 09/15/2019 1:56 Results for (INORGANIC), S PM REFRIGERATOR GLAZIER this procedur e are in the results section. MAGNESIUM, S STAT 09/15/2019 1:56 Results for PM REFRIGERATOR GLAZIER this procedure are in the results section. BASIC METABOLIC STAT 09/15/2019 1:56 Results f or PANEL, S/P PM REFRIGERATOR GLAZIER this procedure are in the results section. HEPATITIS B SURFACE Routine 09/15/2019 1:50 Resul ts for ANTIGEN PM REFRIGERATOR GLAZIER this procedure are in the results section. documented in this encounter Results (ABNORMAL) Prothrombin Time (PT) (09/19/2019 4:02 AM REFRIGERATOR GLAZIER) [facility] Method Time Signature Prothrombin 20.0 (H) 9.4 - 12.5 09/19/2019 DTL Time, P sec 4:47 AM REFRIGERATOR GLAZIER INR 1.8 0.9 - 1.1 09/19/2019 DTL 4:47 AM REFRIGERATOR GLAZIER Comment: ----ADDITIONAL INFORMATION---- Standard intensity warfarin therapeutic range: 2.0 to 3.0 ?? High intensity warfarin therapeutic rang e: 2.5 to 3.5 Specimen Anatomical Collection Method Collection Time Receive d Time (Source) Location / / Volume Laterality Blood (Blood, 09/19/2019 4:02 AM 09/19/19 20 4:25 Venous) REFRIGERATOR GLAZIER AM REFRIGERATOR GLAZIER Stephany Vick P.A.-C., M.S. LAB BLOOD ADD-ON Performing Organization Address City/State/ZIP Code Phon e Number [facility] - [address] [place], [place] 05 [facility] [place] [address] [facility] [address] (ABNORMAL) CBC without Differential (09/19/2019 4:02 AM REFRIGERATOR GLAZIER) [facility] Method Time Signature Hemoglobin 11.2 (L) 11.6 - 09/19/2019 DTL 15.0 g/dL 4:31 AM REFRIGERATOR GLAZIER Hematocrit 36.3 35.5 - 09/19/2019 DTL 44.9 % 4:31 AM REFRIGERATOR GLAZIER Erythrocytes 3.90 (L) 3.92 - 09/19/2019 DTL 5.13 4:31 AM REFRIGERATOR GLAZIER x10(12)/L MCV 93.1 78.2 - 09/19/2019 DTL 97.9 fL 4:31 AM REFRIGERATOR GLAZIER RBC Distrib Width 14.8 12.2 - 09/19/2019 DTL 16.1 % 4:31 AM REFRIGERATOR GLAZIER Platelet Count 123 (L) 157 - 371 09/19/2019 DTL x10(9)/L 4:31 AM REFRIGERATOR GLAZIER Leukocytes 7.6 3.4 - 9.6 09/19/2019 DTL x10(9)/L 4:31 AM REFRIGERATOR GLAZIER Specimen Anatomical Collection Method Collection Time Receive d Time (Source) Location / / Volume Laterality Blood (Blood, 09/19/2019 4:02 AM 09/19/19 20 4:25 Venous) REFRIGERATOR GLAZIER AM REFRIGERATOR GLAZIER Pranay Strauss M.D. LAB BLOOD ADD-ON Performing Organization Address City/State/ZIP Code Phon e Number [facility] - [address] [place], [place] [address] [facility] [place] [address] [facility] 200 [facility] Heparin Anti-Xa Assay (09/19/2019 4:02 AM REFRIGERATOR GLAZIER) P athologist Signature Heparin 0.42 IU/mL 09/19/2019 DTL Anti-Xa, P 4:47 AM REFRIGERATOR GLAZIER Comment: UFH therapeutic range: ?? 0.30-0.70 IU/mL LMWH therapeutic range: 0.50-1.00 IU/mL 0.50-1.00 IU/mL for twice daily dosing ? ? 1.00-2.00 IU/mL for once daily dosing (sample obtained 4-6 hours following sub cutaneous injection) LMWH prophylactic range:0.10-0.30 IU/mL ----ADDITIONAL INFORMATION---- Heparin Anti-Xa is used to measure hepar in concentrations in patients receiving low molecular weig ht heparin (LMWH) or unfractionated heparin (UFH). Specimen Anatomical Collection Method Collection Time Receive d Time (Source) Location / / Volume Laterality Blood (Blood, 09/19/2019 4:02 AM 09/19/19 20 4:25 Venous) REFRIGERATOR GLAZIER AM REFRIGERATOR GLAZIER Kay Ruiz M.D. LAB BLOOD NON ADD-ON Performing Organization Address [facility] Phon e Number [facility] - [id number] [place] [address] Heparin Anti-Xa Assay (09/18/2019 5:59 AM REFRIGERATOR GLAZIER) P athologist Signature Heparin 0.37 IU/mL 09/18/2019 DTL Anti-Xa, P 8:41 AM REFRIGERATOR GLAZIER Comment: UFH therapeutic range: ?? 0.30-0.70 IU/mL LMWH therapeutic range: 0.50-1.00 IU/mL 0.50-1.00 IU/mL for twice daily dosing ? ? 1.00-2.00 IU/mL for once daily dosing (sample obtained 4-6 hours following sub cutaneous injection) LMWH prophylactic range:0.10-0.30 IU/mL ----ADDITIONAL INFORMATION---- Heparin Anti-Xa is used to measure hepar in concentrations in patients receiving low molecular weig ht heparin (LMWH) or unfractionated heparin (UFH). Specimen Anatomical Collection Method Collection Time Receive d Time (Source) Location / / Volume Laterality Blood (Blood, 09/18/2019 5:59 AM 09/18/19 6:14 Venous) REFRIGERATOR GLAZIER AM REFRIGERATOR GLAZIER Kay Ruiz M.D. LAB BLOOD NON ADD-ON Performing Organization Address City/[facility] Phon e Number [facility] - 200 [place], [place] [address] [place] [id number] [facility] (ABNORMAL) Prothrombin Time (PT) (09/18/2019 5:59 AM REFRIGERATOR GLAZIER) Patholo gist Method Time Signature Prothrombin 16.9 (H) 9.4 - 12.5 09/18/2019 DTL Time, P sec 8:12 AM REFRIGERATOR GLAZIER INR 1.5 0.9 - 1.1 09/18/2019 DTL 8:12 AM REFRIGERATOR GLAZIER Comment: ----ADDITIONAL INFORMATION---- Standard intensity warfarin therapeutic range: 2.0 to 3.0 ?? High intensity warfarin therapeutic rang e: 2.5 to 3.5 Specimen Anatomical Collection Method Collection Time Receive d Time (Source) Location / / Volume Laterality Blood (Blood, 09/18/2019 5:59 AM 09/18/19 6:14 Venous) REFRIGERATOR GLAZIER AM REFRIGERATOR GLAZIER Stephany Vick P.A.-C. M.S. LAB BLOOD ADD-ON Performing Organization Address City/[facility] Phon e Number [facility] - [address] [place], [place] [address] [facility] [place] [address] [facility] [address] (ABNORMAL) CBC without Differential (09/18/2019 5:59 AM REFRIGERATOR GLAZIER) [facility] Method Time Signature Hemoglobin 11.3 (L) 11.6 - 09/18/2019 DTL 15.0 g/dL 6:19 AM REFRIGERATOR GLAZIER Hematocrit 36.3 35.5 - 09/18/2019 DTL 44.9 % 6:19 AM REFRIGERATOR GLAZIER Erythrocytes 3.91 (L) 3.92 - 09/18/2019 DTL 5.13 6:19 AM REFRIGERATOR GLAZIER x10(12)/L MCV 92.8 78.2 - 09/18/2019 DTL 97.9 fL 6:19 AM REFRIGERATOR GLAZIER RBC Distrib Width 15.1 12.2 - 09/18/2019 DTL 16.1 % 6:19 AM REFRIGERATOR GLAZIER Platelet Count 129 (L) 157 - 371 09/18/2019 DTL x10(9)/L 6:19 AM REFRIGERATOR GLAZIER Leukocytes 7.8 3.4 - 9.6 09/18/2019 DTL x10(9)/L 6:19 AM REFRIGERATOR GLAZIER Specimen Anatomical Collection Method Collection Time Receive d Time (Source) Location / / Volume Laterality Blood (Blood, 09/18/2019 5:59 AM 09/18/19 6:14 Venous) REFRIGERATOR GLAZIER AM REFRIGERATOR GLAZIER Pranay Strauss M.D. LAB BLOOD ADD-ON Performing Organization Address City/[facility] Phon e Number [facility] - [address] [place], [place] [address] [facility] [place] [address] [facility] [address] Heparin Anti-Xa Assay (09/17/2019 11:00 PM REFRIGERATOR GLAZIER) P athologist Signature Heparin 0.44 IU/mL 09/17/2019 DTL Anti-Xa, P 11:47 PM REFRIGERATOR GLAZIER Comment: UFH therapeutic range: ?? 0.30-0.70 IU/mL LMWH therapeutic range: 0.50-1.00 IU/mL 0.50-1.00 IU/mL for twice daily dosing ? ? 1.00-2.00 IU/mL for once daily dosing (sample obtained 4-6 hours following sub cutaneous injection) LMWH prophylactic range:0.10-0.30 IU/mL ----ADDITIONAL INFORMATION---- Heparin Anti-Xa is used to measure hepar in concentrations in patients receiving low molecular weig ht heparin (LMWH) or unfractionated heparin (UFH). Specimen Anatomical Collection Method Collection Time Receive d Time (Source) Location / / Volume Laterality Blood (Blood, 09/17/2019 11:00 09/17/2019 Venous) PM REFRIGERATOR GLAZIER 11:15 PM REFRIGERATOR GLAZIER Kay Ruiz M.D. LAB BLOOD NON ADD-ON Performing Organization Address City/State/ZIP Code Phon e Number [facility] - [address] [place], [place] [address] [place] [address] [facility] [address] Heparin Anti-Xa Assay (09/17/2019 4:51 PM REFRIGERATOR GLAZIER) athologist Signature Heparin 0.48 IU/mL 09/17/2019 DT Anti-Xa, P 5:29 PM REFRIGERATOR GLAZIER Comment: UFH therapeutic range: ?? 0.30-0.70 IU/mL LMWH therapeutic range: 0.50-1.00 IU/mL 0.50-1.00 IU/mL for twice daily dosing ? ? 1.00-2.00 IU/mL for once daily dosing (sample obtained 4-6 hours following sub cutaneous injection) LMWH prophylactic range:0.10-0.30 IU/mL ----ADDITIONAL INFORMATION---- Heparin Anti-Xa is used to measure hepar in concentrations in patients receiving low molecular weig ht heparin (LMWH) or unfractionated heparin (UFH). Specimen Anatomical Collection Method Collection Time Receive d Time (Source) Location / / Volume Laterality Blood 09/17/2019 4:51 PM 0 5:07 REFRIGERATOR GLAZIER PM REFRIGERATOR GLAZIER Kay Ruiz M.D. LAB BLOOD NON ADD-ON Performing Organization Address City/[facility] Code Phon e Number [facility] - [address] [place], [place] [address] [place] [address] [facility] 200 [facility] Heparin Anti-Xa Assay (09/17/2019 4:42 AM REFRIGERATOR GLAZIER) P athologist Signature Heparin 0.57 IU/mL 09/17/2019 DTL Anti-Xa, P 6:05 AM REFRIGERATOR GLAZIER Comment: UFH therapeutic range: ?? 0.30-0.70 IU/mL LMWH therapeutic range: 0.50-1.00 IU/mL 0.50-1.00 IU/mL for twice daily dosing ? ? 1.00-2.00 IU/mL for once daily dosing (sample obtained 4-6 hours following sub cutaneous injection) LMWH prophylactic range:0.10-0.30 IU/mL ----ADDITIONAL INFORMATION---- Heparin Anti-Xa is used to measure hepar in concentrations in patients receiving low molecular weig ht heparin (LMWH) or unfractionated heparin (UFH). Specimen Anatomical Collection Method Collection Time Receive d Time (Source) Location / / Volume Laterality Blood (Blood, 09/17/2019 4:42 AM 09/17/19 20 5:36 Venous) REFRIGERATOR GLAZIER AM REFRIGERATOR GLAZIER Kay Ruiz M.D. LAB BLOOD NON ADD-ON Performing Organization Address City/State/[facility] Code Phon e Number [facility] - [address] [place], [place] [address] [place] [address] [facility] [address] [facility] Prothrombin Time (PT) (09/17/2019 4:42 AM REFRIGERATOR GLAZIER) P athologist Signature Prothrombin 12.4 9.4 - 12.5 09/17/2019 DTL Time, P sec 6:05 AM REFRIGERATOR GLAZIER INR 1.1 0.9 - 1.1 09/17/2019 DTL 6:05 AM REFRIGERATOR GLAZIER Comment: ----ADDITIONAL INFORMATION---- Standard intensity warfarin therapeutic range: 2.0 to 3.0 ?? High intensity warfarin therapeutic rang e: 2.5 to 3.5 Specimen Anatomical Collection Method Collection Time Receive d Time (Source) Location / / Volume Laterality Blood (Blood, 09/17/2019 4:42 AM 09/17/19 5:36 Venous) REFRIGERATOR GLAZIER AM REFRIGERATOR GLAZIER Stephany Vick P.A.-C. M.S. LAB BLOOD ADD-ON Performing Organization Address City/[facility] Code Phon e Number [facility] - [address] (ABNORMAL) CBC without Differential (09/17/2019 4:42 AM REFRIGERATOR GLAZIER) Patholo gist Method Time Signature Hemoglobin 12.3 11.6 - 09/17/2019 DTL 15.0 g/dL 5:48 AM REFRIGERATOR GLAZIER Hematocrit 40.0 35.5 - 09/17/2019 DTL 44.9 % 5:48 AM REFRIGERATOR GLAZIER Erythrocytes 4.32 3.92 - 09/17/2019 DTL 5.13 5:48 AM REFRIGERATOR GLAZIER x10(12)/L MCV 92.6 78.2 - 09/17/2019 DTL 97.9 fL 5:48 AM REFRIGERATOR GLAZIER RBC Distrib Width 14.9 12.2 - 09/17/2019 DTL 16.1 % 5:48 AM REFRIGERATOR GLAZIER Platelet Count 151 (L) 157 - 371 09/17/2019 DTL x10(9)/L 5:48 AM REFRIGERATOR GLAZIER Leukocytes 9.9 (H) 3.4 - 9.6 09/17/2019 DTL x10(9)/L 5:48 AM REFRIGERATOR GLAZIER Specimen Anatomical Collection Method Collection Time Receive d Time (Source) Location / / Volume Laterality Blood (Blood, 09/17/2019 4:42 AM 09/17/19 20 5:36 Venous) REFRIGERATOR GLAZIER AM REFRIGERATOR GLAZIER Pranay Strauss M.D. LAB BLOOD ADD-ON Performing Organization Address City/[facility] Code Phon e Number [facility] - [address] Phosphorus Inorganic (09/17/2019 4:42 AM REFRIGERATOR GLAZIER) P athologist Signature Phosphorus 4.4 2.5 - 4.5 09/17/2019 DTL (Inorganic), S mg/dL 6:23 AM REFRIGERATOR GLAZIER Specimen Anatomical Collection Method Collection Time Receive d Time (Source) Location / / Volume Laterality Blood (Blood, 09/17/2019 4:42 AM 09/17/19 20 5:36 Venous) REFRIGERATOR GLAZIER AM REFRIGERATOR GLAZIER Stephany Vick P.A.-C., M.S. LAB BLOOD ADD-ON Performing Organization Address City/State/ZIP Code Phon e Number [facility] - [address] [place], [place] [address] [facility] [place] [address] [facility] [address] (ABNORMAL) Basic Metabolic Panel (09/17/2019 4:42 AM REFRIGERATOR GLAZIER) Analysis Performed At Patho logist Time Signature Potassium, S 5.3 (H) 3.6 - 5.2 09/17/2019 DTL mmol/L 6:23 AM REFRIGERATOR GLAZIER Sodium, S 137 135 - 145 09/17/2019 DTL mmol/L 6:23 AM REFRIGERATOR GLAZIER Chloride, S 95 (L) 98 - 107 09/17/2019 DTL mmol/L 6:23 AM REFRIGERATOR GLAZIER Bicarbonate, S 23 22 - 29 09/17/2019 DTL mmol/L 6:23 AM REFRIGERATOR GLAZIER Anion Gap 19 (H) 7 - 15 09/17/2019 DTL 6:23 AM REFRIGERATOR GLAZIER BUN (Blood Urea 40 (H) 6 - 21 09/17/2019 DTL Nitrogen), S mg/dL 6:23 AM REFRIGERATOR GLAZIER Creatinine 7.10 (H) 0.59 - 09/17/2019 DTL 1.04 mg/dL 6:23 AM REFRIGERATOR GLAZIER eGFR-Non <15 (L) >=60 09/17/2019 DTL Black/ mL/min/BSA 6:23 AM REFRIGERATOR GLAZIER [place]an Comment: ----ADDITIONAL INFORMATION---- Estimated GFR calculated using the 2009 CKD_EPI creatinine equation. eGFR-Black/ <15 (L) >=60 mL/min/BSA 2019 6:23 AM REFRIGERATOR GLAZIER DTL Comment: ----ADDITIONAL INFORMATION---- Estimated GFR calculated using the 2009 CKD_EPI creatinine equation. Calcium, Total, S 9.8 8.8 - 10.2 mg/dL 09/17/2019 6:50 AM REFRIGERATOR GLAZIER DTL Glucose, S 201 (H) 70 - 140 mg/dL 09/17/2019 6:23 AM REFRIGERATOR GLAZIER D TL Specimen Anatomical Collection Method Collection Time Receive d Time (Source) Location / / Volume Laterality Blood (Blood, 09/17/2019 4:42 AM 09/17/19 5:36 Venous) REFRIGERATOR GLAZIER AM REFRIGERATOR GLAZIER Stephany Vick P.A.-C., M.S. LAB BLOOD ADD-ON Performing Organization Address City/[facility] Phon e Number [facility] - [address] Heparin Anti-Xa Assay (09/16/2019 9:11 PM REFRIGERATOR GLAZIER) P athologist Signature Heparin 0.47 IU/mL 09/16/2019 [facility] Anti-Xa, P 10:07 PM REFRIGERATOR GLAZIER Comment: UFH therapeutic range: ?? 0.30-0.70 IU/mL LMWH therapeutic range: 0.50-1.00 IU/mL 0.50-1.00 IU/mL for twice daily dosing ? ? 1.00-2.00 IU/mL for once daily dosing (sample obtained 4-6 hours following sub cutaneous injection) LMWH prophylactic range:0.10-0.30 IU/mL ----ADDITIONAL INFORMATION---- Heparin Anti-Xa is used to measure hepar in concentrations in patients receiving low molecular weig ht heparin (LMWH) or unfractionated heparin (UFH). Specimen Anatomical Collection Method Collection Time Receive d Time (Source) Location / / Volume Laterality Blood (Blood, 09/16/2019 9:11 PM 09/16/19 20 9:53 Venous) REFRIGERATOR GLAZIER PM REFRIGERATOR GLAZIER Jakub Ray M.D., Ph.D. LAB BLOOD NON ADD-ON Performing Organization Address City/State/[facility] Code Phon e Number [facility] - [address] [place] Fluoro Less Than 1 Hour (09/16/2019 3:54 PM REFRIGERATOR GLAZIER) Specimen (Source) Anatomical Location Collection Method / Collectio n Time Received Time / Laterality Volume Narrative 152 HOS LOS RST - 09/16/2019 3:55 PM REFRIGERATOR GLAZIER This exam does not require a radiologist review or interpretation. Please refer to the patient's medical record on this date for clinical details. Jakub Ray M.D., Ph.D. IMG FLUOROSCOPY PROCEDURES Performing Organization Address City/[facility]/ZIP Code Phon e Number 152 HOS LOS RST Heparin Anti-Xa Assay (09/16/2019 1:58 PM REFRIGERATOR GLAZIER) P athologist Signature Heparin 0.17 IU/mL 09/16/2019 DTL Anti-Xa, P 2:28 PM REFRIGERATOR GLAZIER Comment: UFH therapeutic range: ?? 0.30-0.70 IU/mL LMWH therapeutic range: 0.50-1.00 IU/mL 0.50-1.00 IU/mL for twice daily dosing ? ? 1.00-2.00 IU/mL for once daily dosing (sample obtained 4-6 hours following sub cutaneous injection) LMWH prophylactic range:0.10-0.30 IU/mL ----ADDITIONAL INFORMATION---- Heparin Anti-Xa is used to measure hepar in concentrations in patients receiving low molecular weig ht heparin (LMWH) or unfractionated heparin (UFH). Specimen Anatomical Collection Method Collection Time Receive d Time (Source) Location / / Volume Laterality Blood (Blood, 09/16/2019 1:58 PM 09/16/19 20 2:16 Venous) REFRIGERATOR GLAZIER PM REFRIGERATOR GLAZIER Pranay Strauss M.D. LAB BLOOD NON ADD-ON Performing Organization Address City/[facility] Phon e Number [facility] - [address] [place], [place] [address] [facility] [place] [address] [facility] [address] IR Dialysis / High Flow Catheter Removal (09/16/2019 11:03 AM REFRIGERATOR GLAZIER) Anatomical Region Laterality Modality Body, Vascular Interventional RST LOS, Vascular N/A X-Ray Angiography Interventional ARZ LOS, Vascular Interventional FLA LOS Specimen (Source) Anatomical Collection Method Collection Time Re ceived Time Location / / Volume Laterality 09/17/2019 3:44 PM REFRIGERATOR GLAZIER Impressions 09/17/2019 3:48 PM REFRIGERATOR GLAZIER Uncomplicated removal of a right EJ tunneled dialysis line. NR Narrative 09/17/2019 3:48 PM REFRIGERATOR GLAZIER EXAM: IR DIALYSIS / HIGH FLOW CATHETER REMOVAL CLINICAL HISTORY: ??59-year-old female w ith ESRD. ??Underwent exchange of a previous left IJ tunneled dialysis line for a right IJ tunneled dialysis catheter. ??This is no longer needed, sh e presents to [facility] for removal. ??Prior to procedure, patient was on continuous hep umm nomogram for recent AV graft intervention. ??This was held for 1 hour prior to catheter removal. TECHNIQUE: ??Patient transferred down fr hospital floor for procedure. ??She is positioned supine in bed, all dressings removed from right chest catheter site and prepped in routine sterile fashion. ??1% lidocaine administered for local anesthesia. ??After minimal tissue disse ction, catheter and cuff freed in their entirety well occluding the right EJV. A dequate hemostasis achieved. ??This area redressed with sterile dressing instruct ed remain intact for the next 48 hours. Patient tolerated without any issues, sa nicholas transfer back to hospital floor. PREPROCEDURE: ??Prior to procedure, prop er patient identification and procedure reviewed. ??Consent obtained. Procedure Note Sintia Espinoza APRN, C.N.P., M.S.N. - EXAM: IR DIALYSIS / HIGH FLOW CATHETER R EMOVAL CLINICAL HISTORY: 59-year-old female wit h ESRD. Underwent exchange of a previous left IJ tunneled dialysis line for a right IJ tunneled dialysis catheter. This is no longer needed, she presents to [facility] for removal. Prior to procedure, patient was on continuous hep umm nomogram for recent AV graft intervention. This was held for 1 hour p rior to catheter removal. TECHNIQUE: Patient transferred down from hospital floor for procedure. She is positioned supine in bed, all dressings removed from right chest catheter site and prepped in routine sterile fashion. 1% lidocaine administered for local anesthesia. After minimal tissue dissect ion, catheter and cuff freed in their entirety well occluding the right EJV. A dequate hemostasis achieved. This area redressed with sterile dressing instruct ed remain intact for the next 48 hours. Patient tolerated without any issues, sa nicholas transfer back to hospital floor. PREPROCEDURE: Prior to procedure, proper patient identification and procedure reviewed. Consent obtained. IMPRESSION: Uncomplicated removal of a right EJ tunn eled dialysis line. NR Pranay Strauss M.D. IMG IR PROCEDURES Heparin Anti-Xa Assay (09/16/2019 6:49 AM REFRIGERATOR GLAZIER) P athologist Signature Heparin 0.62 IU/mL 09/16/2019 DTL Anti-Xa, P 7:25 AM REFRIGERATOR GLAZIER Comment: UFH therapeutic range: ?? 0.30-0.70 IU/mL LMWH therapeutic range: 0.50-1.00 IU/mL 0.50-1.00 IU/mL for twice daily dosing ? ? 1.00-2.00 IU/mL for once daily dosing (sample obtained 4-6 hours following sub cutaneous injection) LMWH prophylactic range:0.10-0.30 IU/mL ----ADDITIONAL INFORMATION---- Heparin Anti-Xa is used to measure hepar in concentrations in patients receiving low molecular weig ht heparin (LMWH) or unfractionated heparin (UFH). Specimen Anatomical Collection Method Collection Time Receive d Time (Source) Location / / Volume Laterality Blood (Blood, 09/16/2019 6:49 AM 09/16/19 20 7:08 Venous) REFRIGERATOR GLAZIER AM REFRIGERATOR GLAZIER Stephany Vick P.A.-C. MDaviSDavi LAB BLOOD NON ADD-ON Performing Organization Address City/State/ZIP Code Phon e Number [facility] - [address] [place], [place] [address] [facility] [place] [address] [facility] [address] (ABNORMAL) CBC without Differential (09/16/2019 6:49 AM REFRIGERATOR GLAZIER) [facility] gist Method Time Signature Hemoglobin 12.3 11.6 - 09/16/2019 DTL 15.0 g/dL 7:18 AM REFRIGERATOR GLAZIER Hematocrit 39.6 35.5 - 09/16/2019 DTL 44.9 % 7:18 AM REFRIGERATOR GLAZIER Erythrocytes 4.27 3.92 - 09/16/2019 DTL 5.13 7:18 AM REFRIGERATOR GLAZIER x10(12)/L MCV 92.7 78.2 - 09/16/2019 DTL 97.9 fL 7:18 AM REFRIGERATOR GLAZIER RBC Distrib Width 15.2 12.2 - 09/16/2019 DTL 16.1 % 7:18 AM REFRIGERATOR GLAZIER Platelet Count 140 (L) 157 - 371 09/16/2019 DTL x10(9)/L 7:18 AM REFRIGERATOR GLAZIER Leukocytes 6.7 3.4 - 9.6 09/16/2019 DTL x10(9)/L 7:18 AM REFRIGERATOR GLAZIER Specimen Anatomical Collection Method Collection Time Receive d Time (Source) Location / / Volume Laterality Blood (Blood, 09/16/2019 6:49 AM 09/16/19 20 7:08 Venous) REFRIGERATOR GLAZIER AM REFRIGERATOR GLAZIER Pranay Strauss M.D. LAB BLOOD ADD-ON Performing Organization Address City/[facility] Phon e Number [facility] - [address] Heparin Anti-Xa Assay (09/16/2019 12:29 AM REFRIGERATOR GLAZIER) athologist Signature Heparin 0.41 IU/mL 09/16/2019 [facility] Anti-Xa, P 1:07 AM REFRIGERATOR GLAZIER Comment: UFH therapeutic range: ?? 0.30-0.70 IU/mL LMWH therapeutic range: 0.50-1.00 IU/mL 0.50-1.00 IU/mL for twice daily dosing ? ? 1.00-2.00 IU/mL for once daily dosing (sample obtained 4-6 hours following sub cutaneous injection) LMWH prophylactic range:0.10-0.30 IU/mL ----ADDITIONAL INFORMATION---- Heparin Anti-Xa is used to measure hepar in concentrations in patients receiving low molecular weig ht heparin (LMWH) or unfractionated heparin (UFH). Specimen Anatomical Collection Method Collection Time Receive d Time (Source) Location / / Volume Laterality Blood (Blood, 09/16/2019 12:29 09/16/2019 Venous) AM REFRIGERATOR GLAZIER 12:46 AM REFRIGERATOR GLAZIER Amaris Stack M.D., M.S. LAB BLOOD NON ADD-ON Performing Organization Address City/[facility] Phon e Number [facility] - [address] APTT (Activated Partial Thromboplastin Time) (09/15/2019 5:17 PM REFRIGERATOR GLAZIER) P athologist Signature Activated 27 25 - 37 sec 09/15/2019 STMA Partial 5:32 PM REFRIGERATOR GLAZIER Thrombopl Time, P Specimen Anatomical Collection Method Collection Time Receive d Time (Source) Location / / Volume Laterality Blood 09/15/2019 5:17 PM 0 5:23 REFRIGERATOR GLAZIER PM REFRIGERATOR GLAZIER Pranay Strauss M.D. LAB BLOOD ADD-ON Performing Organization Address City/State/ZIP Code Phon e Number [facility] - [address] [place], [place] [address] [place] [address] [place] [address] [address] [facility] (ABNORMAL) Magnesium (09/15/2019 1:56 PM REFRIGERATOR GLAZIER) P athologist Signature Magnesium, S 1.6 (L) 1.7 - 2.3 09/15/2019 DTL mg/dL 3:06 PM REFRIGERATOR GLAZIER Specimen Anatomical Collection Method Collection Time Receive d Time (Source) Location / / Volume Laterality Blood (Blood, 09/15/2019 1:56 PM 09/15/19 20 2:29 Venous) REFRIGERATOR GLAZIER PM REFRIGERATOR GLAZIER Pranay Strauss M.D. LAB BLOOD ADD-ON Performing Organization Address City/[facility]/ZIP Code Phon e Number [facility] - [address] [place], [place] [address] [place] [address] [place] [address] [address] [facility] Phosphorus Inorganic (09/15/2019 1:56 PM REFRIGERATOR GLAZIER) P athologist Signature Phosphorus 3.4 2.5 - 4.5 09/15/2019 DTL (Inorganic), S mg/dL 3:06 PM REFRIGERATOR GLAZIER Specimen Anatomical Collection Method Collection Time Receive d Time (Source) Location / / Volume Laterality Blood (Blood, 09/15/2019 1:56 PM 09/15/19 20 2:29 Venous) REFRIGERATOR GLAZIER PM REFRIGERATOR GLAZIER Pranay Strauss M.D. LAB BLOOD ADD-ON Performing Organization Address City/[facility]/ZIP Code Phon e Number [facility] - [address] [place], [place] [address] [place] [address] [facility] [address] (ABNORMAL) Prothrombin Time (PT) (09/15/2019 1:56 PM REFRIGERATOR GLAZIER) Patholo gist Method Time Signature Prothrombin 16.7 (H) 9.4 - 12.5 09/15/2019 STMA Time, P sec 2:09 PM REFRIGERATOR GLAZIER INR 1.5 0.9 - 1.1 09/15/2019 STMA 2:09 PM REFRIGERATOR GLAZIER Comment: ----ADDITIONAL INFORMATION---- Standard intensity warfarin therapeutic range: 2.0 to 3.0 ?? High intensity warfarin therapeutic rang e: 2.5 to 3.5 Specimen Anatomical Collection Method Collection Time Receive d Time (Source) Location / / Volume Laterality Blood (Blood, 09/15/2019 1:56 PM 09/15/19 20 2:00 Venous) REFRIGERATOR GLAZIER PM REFRIGERATOR GLAZIER Pranay Strauss M.D. LAB BLOOD ADD-ON Performing Organization Address City/State/[facility] Code Phon e Number [facility] - [address] [place], [place] [address] [facility] [place] [address] [facility] [address] (ABNORMAL) Basic Metabolic Panel (09/15/2019 1:56 PM REFRIGERATOR GLAZIER) Analysis Performed At Patho logist Time Signature Potassium, P 4.2 3.6 - 5.2 09/15/2019 STMA mmol/L 2:22 PM REFRIGERATOR GLAZIER Sodium, P 135 135 - 145 09/15/2019 STMA mmol/L 2:22 PM REFRIGERATOR GLAZIER Chloride, P 94 (L) 98 - 107 09/15/2019 STMA mmol/L 2:22 PM REFRIGERATOR GLAZIER Bicarbonate, P 29 22 - 29 09/15/2019 STMA mmol/L 2:22 PM REFRIGERATOR GLAZIER Anion Gap, P 12 7 - 15 09/15/2019 STMA 2:22 PM REFRIGERATOR GLAZIER BUN (Blood Urea 16 6 - 21 09/15/2019 STMA Nitrogen), P mg/dL 2:22 PM REFRIGERATOR GLAZIER Creatinine 3.91 (H) 0.59 - 09/15/2019 STMA 1.04 mg/dL 2:22 PM REFRIGERATOR GLAZIER eGFR-Black/Afri <15 (L) >=60 09/15/2019 STMA can [place]an mL/min/BSA 2:22 PM REFRIGERATOR GLAZIER Comment: ----ADDITIONAL INFORMATION---- Estimated GFR calculated using the 2009 CKD_EPI creatinine equation. eGFR Non-Black/ <15 (L) >=60 mL/min/BSA 09/15/2019 2:22 PM REFRIGERATOR GLAZIER STMA [place] Comment: ----ADDITIONAL INFORMATION---- Estimated GFR calculated using the 2009 CKD_EPI creatinine equation. Calcium, Total, P 9.3 8.8 - 10.2 mg/dL 09/15/2019 2:22 PM REFRIGERATOR GLAZIER STMA Glucose, P 107 70 - 140 mg/dL 09/15/2019 2:22 PM REFRIGERATOR GLAZIER S TMA Specimen Anatomical Collection Method Collection Time Receive d Time (Source) Location / / Volume Laterality Blood (Blood, 09/15/2019 1:56 PM 09/15/19 20 2:01 Venous) REFRIGERATOR GLAZIER PM REFRIGERATOR GLAZIER Pranay Strauss M.D. LAB BLOOD ADD-ON Performing Organization Address City/State/ZIP Code Phon e Number [facility] - [address] [place], [place] [address] [place] [address] [facility] [address] (ABNORMAL) CBC with Differential, Blood (09/15/2019 1:56 PM REFRIGERATOR GLAZIER) [facility] gist Method Time Signature Hemoglobin 12.5 11.6 - 09/15/2019 STMA 15.0 g/dL 2:04 PM REFRIGERATOR GLAZIER Hematocrit 39.2 35.5 - 09/15/2019 STMA 44.9 % 2:04 PM REFRIGERATOR GLAZIER Erythrocytes 4.34 3.92 - 09/15/2019 STMA 5.13 2:04 PM REFRIGERATOR GLAZIER x10(12)/L MCV 90.3 78.2 - 09/15/2019 STMA 97.9 fL 2:04 PM REFRIGERATOR GLAZIER RBC Distrib Width 15.2 12.2 - 09/15/2019 STMA 16.1 % 2:04 PM REFRIGERATOR GLAZIER Platelet Count 163 157 - 371 09/15/2019 STMA x10(9)/L 2:04 PM REFRIGERATOR GLAZIER Leukocytes 8.9 3.4 - 9.6 09/15/2019 STMA x10(9)/L 2:04 PM REFRIGERATOR GLAZIER Neutrophils 6.19 1.56 - 09/15/2019 STMA 6.45 2:04 PM REFRIGERATOR GLAZIER x10(9)/L Lymphocytes 1.61 0.95 - 09/15/2019 STMA 3.07 2:04 PM REFRIGERATOR GLAZIER x10(9)/L Monocytes 0.90 (H) 0.26 - 09/15/2019 STMA 0.81 2:04 PM REFRIGERATOR GLAZIER x10(9)/L Eosinophils 0.16 0.03 - 09/15/2019 STMA 0.48 2:04 PM REFRIGERATOR GLAZIER x10(9)/L Basophils 0.06 0.01 - 09/15/2019 STMA 0.08 2:04 PM REFRIGERATOR GLAZIER x10(9)/L Specimen Anatomical Collection Method Collection Time Receive d Time (Source) Location / / Volume Laterality Blood (Blood, 09/15/2019 1:56 PM 09/15/19 20 2:00 Venous) REFRIGERATOR GLAZIER PM REFRIGERATOR GLAZIER Pranay Strauss M.D. LAB BLOOD ADD-ON Performing Organization Address City/[facility]/ZIP Code Phon e Number [facility] - [address] [place], [place] [address] [place] [address] [facility] [address] Hepatitis B Surface Antigen (09/15/2019 1:50 PM REFRIGERATOR GLAZIER) P athologist Signature HBs Antigen, S Negative Negative 09/16/2019 [facility] 10:21 PM REFRIGERATOR GLAZIER Specimen Anatomical Collection Method Collection Time Receive d Time (Source) Location / / Volume Laterality Blood (Blood, 09/15/2019 1:50 PM 09/16/19 20 8:17 Venous) REFRIGERATOR GLAZIER PM REFRIGERATOR GLAZIER Fracisco Bangura APRN.N.P., M.S.N. LAB MICROBIOLOG Y - BLOOD ORDERABLES Performing Organization Address City/[facility] Phon e Number [facility] [address] [place], [place] [address] [facility] [place] [address] Laboratory Medicine and Pathology [address] 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) Chronic Failure Renal End Stage Renal Di sease Dialysis Dependent (HCC) Infection Urinary Tract Recurrent Anticoagulant Therapy Hypertension And Chronic Kidney Disease Stage 1 To 4 Hyperlipidemia Thombosis Arteriovenous Fistula Initial (HCC) documented in this encounter Admitting Diagnoses Diagnosis Ureteral Stent Exchange Obstruction Ureteropelvic documented in this encounter Administered Medications Inactive Administered Medications - up to 3 most recent administrations Medication Order MAR Action Action Date Dose Rate Site calcium carbonate tablet Given 09/19/2019 12:34 PM 1,000 mg of c alcium 1,000 mg of calcium REFRIGERATOR GLAZIER (OS-KEISHA) 1,000 mg of calcium, oral, 2 times daily with meals, First dose on Elizabeth 09/18/19 at 0800, Doses listed are in mg of elemental calcium. Take with food. Given 09/19/2019 7:13 AM REFRIGERATOR GLAZIER 1,000 mg of calcium Given 09/18/2019 11:53 AM REFRIGERATOR GLAZIER 1,000 mg of calcium ciprofloxacin tablet 500 mg (CIPRO) Given 09/18/2019 9:34 PM REFRIGERATOR GLAZIER 500 mg 500 mg, oral, Daily at bedtime, First dose on Sun09/15/19 at 2100, For 5 days, Take 2 hours before or 6 hours after antacids containing magnesium or aluminum, sucralfate, didanosine, polymeric phosphate binders, or products containing calcium, iron, or zinc., Drug Monitoring Program: Pharmacist to adjust medication dosing based on indication and drug clearance factors., Indications: Lower UTI, Non-Catheter Given 09/17/2019 9:03 PM REFRIGERATOR GLAZIER 500 mg Given 09/16/2019 9:03 PM REFRIGERATOR GLAZIER 500 mg gabapentin capsule 200 mg (NEURONTIN) Given 09/19/2019 12:34 PM REFRIGERATOR GLAZIER 200 mg 200 mg, oral, 2 times daily, First dose on Sun09/15/19 at 2100 Given 09/18/2019 9:34 PM REFRIGERATOR GLAZIER 200 mg Given 09/18/2019 8:51 AM REFRIGERATOR GLAZIER 200 mg heparin (porcine) 1,000 unit/mL injectio n 2,900 Units 2,900 Units (rounded from 2,919 Units = 30 Units/kg ? 97.3 kg Dosing weight), intravenous, As needed, antiXa 0.1-0.19, Starting on Sun09/15/19 at 1551, Intensity type: Moderat e, Anti-Xa < 0.1: Loading Dose (Units/kg): 60, Anti-Xa 0.1-0.19: Loading Dose (Units/kg): 30, Ant i-Xa > 0.19: Loading Dose (Units/kg): No Loading Dose heparin (porcine) 1,000 unit/mL injectio n 5,800 Units 5,800 Units (rounded from 5,838 Units = 60 Units/kg ? 97.3 kg Dosing weight), intravenous, As needed, antiXa less than 0.1, Starting on Sun09/15/19 at 1551, Intensity type: Moderate, Anti-Xa < 0.1: Loading Dose (Units/kg): 60, Anti-Xa 0.1-0.19: Loading Dose (Units/ kg): 30, Anti-Xa > 0.19: Loading Dose (Units/kg): No Loading Dose heparin (porcine) 100 Restarted 09/16/2019 11:10 AM 10 Units/kg/hr 9 .73 mL/hr Units/mL in D5W 250 mL REFRIGERATOR GLAZIER infusion 0-40 Units/kg/hr ? 97.3 kg Dosing weight (0-38.92 mL/hr), intravenous, Continuous, Starting on Sun09/15/19 at 1600, Premix ba,000 Units in 250 mL, Intensity type: Moderate, Starting Dose (units/kg/hr): 12, Anti-Xa < 0.1: Adjust Dose (Units/kg/hr) by: 4, Anti-Xa < 0.1: Loading Dose (Units/kg): 60, Anti-Xa < 0.1: Repeat anti-Xa: 6 hours, Anti-Xa 0.1-0.19: Adjust Dose (Units/kg/hr) by: 2, Anti-Xa 0.1-0.19: Loading Dose (Units/kg): 30, Anti-Xa 0.1-0.19: Repeat anti-Xa: 6 hours, Anti-Xa 0.2-0.5: Adjust Dose (Units/kg/hr) by: 0, Anti-Xa 0.2-0.5: Repeat anti-Xa: 6 hours. If two consecutive therapeutic result, re-check next AM., Anti-Xa > 0.19: Loading Dose (Units/kg): No Loading Dose, Anti-Xa 0.51-0.6: Adjust Dose (Units/kg/hr) by: -1, Anti-Xa 0.51-0.6: Repeat anti-Xa: 6 hours, Anti-Xa 0.61-0.9: Hold Infusion: Stop infusion for 1 hour, Anti-Xa 0.61-0.9: Adjust Dose (Units/kg/hr) by: -2, Anti-Xa 0.61-0.9: Repeat anti-Xa: 6 hours after Heparin resumed, Anti-Xa >= 0.91: Hold Infusion: Stop infusion for 2 hours, Anti-Xa >= 0.91: Adjust Dose (Units/kg/hr) by: -4, Anti-Xa >= 0.91: Repeat anti-Xa: 6 hours after Heparin resumed Restarted 09/16/2019 8:58 AM REFRIGERATOR GLAZIER 10 Units/kg/hr 9.73 mL/hr New Bag 09/15/2019 6:11 PM REFRIGERATOR GLAZIER 12 Units/kg/hr 11.7 mL/hr heparin (porcine) 100 Rate/Dose Verify 09/19/2019 7:00 10.997 Units /kg/hr 10.7 mL/hr Units/mL in D5W 250 AM REFRIGERATOR GLAZIER mL infusion 0-40 Units/kg/hr ? 97.3 kg Dosing weight (0-38.92 mL/hr), intravenous, Continuous, Starting on Sun09/16/19 at 1145, Premix ba,000 Units in 250 mL, Intensity type: Moderate, Starting Dose (units/kg/hr): 10, Anti-Xa < 0.1: Adjust Dose (Units/kg/hr) by: 4, Anti-Xa < 0.1: Loading Dose (Units/kg): 60, Anti-Xa < 0.1: Repeat anti-Xa: 6 hours, Anti-Xa 0.1-0.19: Adjust Dose (Units/kg/hr) by: 2, Anti-Xa 0.1-0.19: Loading Dose (Units/kg): 30, Anti-Xa 0.1-0.19: Repeat anti-Xa: 6 hours, Anti-Xa 0.2-0.5: Adjust Dose (Units/kg/hr) by: 0, Anti-Xa 0.2-0.5: Repeat anti-Xa: 6 hours. If two consecutive therapeutic result, re-check next AM., Anti-Xa > 0.19: Loading Dose (Units/kg): No Loading Dose, Anti-Xa 0.51-0.6: Adjust Dose (Units/kg/hr) by: -1, Anti-Xa 0.51-0.6: Repeat anti-Xa: 6 hours, Anti-Xa 0.61-0.9: Hold Infusion: Stop infusion for 1 hour, Anti-Xa 0.61-0.9: Adjust Dose (Units/kg/hr) by: -2, Anti-Xa 0.61-0.9: Repeat anti-Xa: 6 hours after Heparin resumed, Anti-Xa >= 0.91: Hold Infusion: Stop infusion for 2 hours, Anti-Xa >= 0.91: Adjust Dose (Units/kg/hr) by: -4, Anti-Xa >= 0.91: Repeat anti-Xa: 6 hours after Heparin resumed New Bag 09/18/2019 9:34 PM REFRIGERATOR GLAZIER 11 Units/kg/hr 10.7 mL/hr Rate/Dose Verify 09/18/2019 8:57 AM REFRIGERATOR GLAZIER 11 Units/kg/hr 10.7 mL/hr lidocaine 10 mg/mL (1 %) injection (XYLO PERCY) Given 09/16/2019 11:02 AM REFRIGERATOR GLAZIER 5 mL Code/trauma/sedation medication, Starting on Sun09/16/19 at 1102 lidocaine 10 mg/mL (1 %) injection 0.2 mL Given 09/17/2019 9:00 AM REFRIGERATOR GLAZIER 0.2 mL (XYLOCAINE) 0.2 mL, intradermal, As needed, needle insertion, Starting on Sun09/17/19 at 0827, Dialysis, As needed with needle insertion for each cannulation. Dialysis order only. lidocaine 10 mg/mL (1 %) injection 0.2 mL Given 09/19/2019 8:40 AM REFRIGERATOR GLAZIER 0.2 mL (XYLOCAINE) 0.2 mL, intradermal, As needed, needle insertion, Starting on Sun09/19/19 at 0752, Dialysis, As needed with needle insertion for each cannulation. Dialysis order only. lidocaine-prilocaine 2.5-2.5 % cream (EM LA) Given 09/19/2019 6:27 AM REFRIGERATOR GLAZIER topical, As needed, other, prior to dialysis on dialysis days MWF, Starting on Sun09/15/19 at 1341 Given 09/17/2019 7:21 AM REFRIGERATOR GLAZIER magnesium sulfate in D5W IVPB 1 g New Bag 09/15/2019 5:01 PM REFRIGERATOR GLAZIER 1 g 100 mL/hr 1 g, intravenous, at 100 mL/hr, Administer over 60 Minutes, Once, On Sun09/15/19 at 1700, For 1 dose, premix bag multivitamin renal failure 1 tablet Given 09/18/2019 5:35 PM REFRIGERATOR GLAZIER 1 tablet (DIALYVITE) 1 tablet, oral, Every evening, First dose on Sun09/15/19 at 1800, give after dialysis on dialysis days Given 09/17/2019 5:44 PM REFRIGERATOR GLAZIER 1 tablet Given 09/16/2019 5:00 PM REFRIGERATOR GLAZIER 1 tablet mycophenolate capsule 250 mg (CELLCEPT) Given 09/19/2019 12:34 PM REFRIGERATOR GLAZIER 250 mg 250 mg, oral, 2 times daily, First dose on Sun09/15/19 at 2100, Swallow whole. Do NOT crush, chew or open capsule. Given 09/18/2019 9:34 PM REFRIGERATOR GLAZIER 250 mg Given 09/18/2019 8:51 AM REFRIGERATOR GLAZIER 250 mg NaCl 0.9 % bolus 100 mL New Bag 09/19/2019 8:30 AM REFRIGERATOR GLAZIER 26 mL 6000 mL/hr 100 mL, intravenous, at 6,000 mL/hr, Administer over 1 Minutes, As needed, low blood pressure, see comments, Starting on Sun09/19/19 at 0752, For 5 doses, Dialysis, Administer as fast as possible. May repeat x 4 for a total volume of 500 mL for symptomatic hypotension during dialysis. Notify Service if symptomatic hypotension persists after blood pressure support interventions were implemented. nebivolol tablet 10 mg (BYSTOLIC) Given 09/18/2019 9:34 PM REFRIGERATOR GLAZIER 10 mg 10 mg, oral, Daily at bedtime, First dose on Sun09/15/19 at 2100 Given 09/17/2019 9:03 PM REFRIGERATOR GLAZIER 10 mg Given 09/16/2019 9:04 PM REFRIGERATOR GLAZIER 10 mg nicotine 7 mg/24 hr 1 patch Medication Applied 09/19/2019 7:14 AM REFRIGERATOR GLAZIER 1 patch Back (NICODERM CQ) 1 patch, transdermal, Administer over 24 Hours, Daily, First dose on Sun09/16/19 at 0900 Medication Applied 09/18/2019 8:52 AM REFRIGERATOR GLAZIER 1 patch Left Shoulder Medication Applied 09/17/2019 1:10 PM REFRIGERATOR GLAZIER 1 patch Right Shoulder predniSONE tablet 5 mg (DELTASONE) Given 09/18/2019 9:34 PM REFRIGERATOR GLAZIER 5 mg 5 mg, oral, Daily at bedtime, First dose on Sun09/15/19 at 2100 Given 09/17/2019 9:03 PM REFRIGERATOR GLAZIER 5 mg Given 09/16/2019 9:03 PM REFRIGERATOR GLAZIER 5 mg rosuvastatin tablet 5 mg (CRESTOR) Given 09/18/2019 9:34 PM REFRIGERATOR GLAZIER 5 mg 5 mg, oral, Daily at bedtime, First dose on Sun09/15/19 at 2100 Given 09/17/2019 9:03 PM REFRIGERATOR GLAZIER 5 mg Given 09/16/2019 9:03 PM REFRIGERATOR GLAZIER 5 mg sodium chloride 0.9 % flush 250 mL Given 09/17/2019 9:10 AM REFRIGERATOR GLAZIER 250 mL 250 mL, intravenous, As needed, line care, For priming and rinse back post dialysis, Starting on Sun09/17/19 at 0827, Dialysis, Dialysis order only. sodium chloride 0.9 % flush 250 mL Given 09/19/2019 8:30 AM REFRIGERATOR GLAZIER 250 mL 250 mL, intravenous, As needed, line care, For priming and rinse back post dialysis, Starting on Sun09/19/19 at 0752, Dialysis, Dialysis order only. tacrolimus capsule 2 mg (PROGRAF) Given 09/19/2019 12:34 PM REFRIGERATOR GLAZIER 2 mg 2 mg, oral, 2 times daily, First dose on Sun09/15/19 at 2100 Given 09/18/2019 9:34 PM REFRIGERATOR GLAZIER 2 mg Given 09/18/2019 8:51 AM REFRIGERATOR GLAZIER 2 mg warfarin management (COUMADIN) oral, Daily, First dose on Sun09/16/19 at 1145, Pharma cist to Dose: Yes, Target INR: 2.5 - 3.5, Comorbidities that constitute Warfarin Sensitivity: No known comorbidities that change warfarin sensitivity, Indica tion: Other, Explanatory Comment: thrombosis/clotting, Therapy type: Resume War farin therapy warfarin tablet 6 mg (COUMADIN) Given 09/18/2019 5:35 PM REFRIGERATOR GLAZIER 6 mg 6 mg, oral, Once, On Sun09/18/19 at 1700, For 1 dose warfarin tablet 7.5 mg (COUMADIN) Given 09/16/2019 5:00 PM REFRIGERATOR GLAZIER 7.5 mg 7.5 mg, oral, Once, On Sun09/16/19 at 1700, For 1 dose warfarin tablet 7.5 mg (COUMADIN) Given 09/17/2019 5:44 PM REFRIGERATOR GLAZIER 7.5 mg 7.5 mg, oral, Once, On Sun09/17/19 at 1700, For 1 dose documented in this encounter Active and Recently Administered Medications Times are shown in REFRIGERATOR GLAZIER. Scheduled Medication Order 09/17/2019 09/18/2019 09/19/2019 calcium carbonate tablet 1,000 mg of calcium (OS-KEISHA) 0887 (Given - Provider: Radha Fatima RDaviNDavi)115 (Given - Provider: Radha Fatima R.N.) 0720 (Given - Provider: Leta Wolff R.N.)1234 (Given - Provider: Leta Wolff R.N.) 1,000 mg of calcium, oral, 2 times daily with meals, First dose on Sun09/18/19 at 0800, Doses listed are in mg of elemental calcium. Take with food. ciprofloxacin tablet 500 mg (CIPRO) 2102 (Given - Provider: Pipe Santana R.N.) 2133 (Given - Provider: Debora Walton R.N.) 500 mg, oral, Daily at bedtime, First do se on Sun09/15/19 at 2100, For 5 days, Take 2 hours before or 6 hours after antacids containing magnesium or aluminum, sucralfate, didanosine, polymeric phosphate binders, or products containing calcium , iron, or zinc., Drug Monitoring Program: Pharmacist to adjust medication dosing based on indication and drug clearance factors., Indications: Lower UTI, Non-Catheter gabapentin capsule 200 mg (NEURONTIN) 1310 (Given - Pr ovider: Radha Fatima R.N.)2102 (Given - Provider: Pipe Santana R.N.) 0851 (Given - Provider: Radha Fatima R.N.)2133 (Given - Provider: Debora Walton R.N.) 1233 (Given - Provider: Leta Wolff R.N. - Comment: Given after dialysis) 200 mg, oral, 2 times daily, First dose on Sun09/15/19 at 2100 multivitamin renal failure 1 tablet (DIALYVITE) 1744 ( Given - Provider: Radha Fatima R.N.) 1735 (Given - Provider: Radha Fatima R.N.) 1 tablet, oral, Every evening, First dos e on Sun09/15/19 at 1800, give after dialysis on dialysis days mycophenolate capsule 250 mg (CELLCEPT) 1311 (Given - Provider: Radha Fatima R.N.)2102 (Given - Provider: Pipe Santana R.N.) 0851 (Given - Provider: Radha Fatima R.N.)2133 (Given - Provider: Debora Walton R.N.) 123 (Given - Provider: Leta Wolff R.N. - Comment: Given after dialysis) 250 mg, oral, 2 times daily, First dose on Sun09/15/19 at 2100, Swallow whole. Do NOT crush, chew or open capsule. nebivolol tablet 10 mg (BYSTOLIC) 2102 (Given - Provider: Cammie Santana R.N.) 2133 (Given - Provider: Debora Walton R.N.) 10 mg, oral, Daily at bedtime, First dose on Sun09/15/19 at 2100 nicotine 7 mg/24 hr 1 patch (NICODERM CQ) 1308 (Medica tion Removed - Provider: Radha Fatima R.N.)1310 (Medication Applied - Provider: Radha Fatima R.N.) 0851 (Medication Removed - Provider: Radha Fatima R.N.)0852 (Medication Applied - Provider: Radha Fatima R.N.) 0713 (Medication Removed - Provider: Leta Wolff R.N.)0714 (Medication Applied - Provider: Leta Wolff R.N. - Comment: Before dialysis. Left upper back.) 1 patch, transdermal, Administer over 24 Hours, Daily, First dose on Sun09/16/19 at 0900 1357 (Due: Medicatio n Removed - Provider: Discharge Provider, Automatic - Comment: Time automatically adjusted from order being discontinued) predniSONE tablet 5 mg (DELTASONE) 2102 (Given - Provider: Flora Santana R.N.) 2133 (Given - Provider: Debora Walton R.N.) 5 mg, oral, Daily at bedtime, First dose on Sun09/15/19 at 2100 rosuvastatin tablet 5 mg (CRESTOR) 2102 (Given - Provider: Flora Santana R.N.) 2133 (Given - Provider: Debora Walton R.N.) 5 mg, oral, Daily at bedtime, First dose on Sun09/15/19 at 2100 tacrolimus capsule 2 mg (PROGRAF) 1311 (Given - Provid er: Radha Fatima R.N.)2103 (Given - Provider: Pipe Santana R.N.) 0851 (Given - Provider: Radha Fatima R.N.)2134 (Given - Provider: Debora Walton R.N.) 1234 (Given - Provider: Leta Wolff R.N. - Comment: Given after dialysis) 2 mg, oral, 2 times daily, First dose on Sun09/15/19 at 2100 warfarin management (COUMADIN) 1700 (Due - Provider: Mary shukla Provider, Automatic) 1700 (Due - Provider: Transfer Provider, Automatic) oral, Daily, First dose on Sun09/16/19 a t 1145, Pharmacist to Dose: Yes, Target INR: 2.5 - 3.5, Comorbidities that constitute Warfarin Sensitivity: No known comorbidities that change warfarin sensitivit y, Indication: Other, Explanatory Commen t: thrombosis/clotting, Therapy type: Resume Warfarin therapy warfarin tablet 6 mg (COUMADIN) (COMPLETED) 173 (Given - Provider: Radha Fatima R.N.) 6 mg, oral, Once, On Elizabeth 09/18/19 at 1700, For 1 dose warfarin tablet 7.5 mg (COUMADIN) (COMPLETED) 174 (Gi maeve - Provider: Radha Fatima R.N.) 7.5 mg, oral, Once, On 09/17/19 at 1700, For 1 dose Continuous Medication Order 09/17/2019 09/18/2019 09/19/2019 heparin (porcine) 100 Units/mL in D5W 250 mL infusion 0608 (Rate/Dose Change - Provider: Lauren Bella R.N.)1737 (Handoff - Provider: Radha Fatima R.N.)2017 (New Bag - Provider: Pipe Santana R.N.) 0010 (Handoff - Provider: Pipe Santana R.N. - Comment: no change from previous dose)0843 (Handoff - Provider: Radha Fatima R.N.)0857 (Rate/Dose Verify - Provider: Radha Fatima R.N.)2134 (New Bag - Provider: Debora Walton R.N.) 0700 (Rate/Dose Verify - Provider: Leta Wolff R.N.)0703 (Handoff - Provider: Leta Wolff R.N.)1229 (Stopped - Provider: Leta Wolff R.N. - Comment: Pt going to be discharging) 0-40 Units/kg/hr ? 97.3 kg Dosing weight (0-38.92 mL/hr), intravenous, Continuous, Starting on Sun09/16/19 at 1145, Premix ba,000 Units in 250 mL, Intensity type: Moderate, Starting Dose (units/kg /hr): 10, Anti-Xa < 0.1: Adjust Dose (Un its/kg/hr) by: 4, Anti-Xa < 0.1: Loading Dose (Units/kg): 60, Anti-Xa < 0.1: Repeat anti-Xa: 6 hours, Anti-Xa 0.1-0.19: Adjust Dose (Units/kg/hr) by: 2, Anti-Xa 0.1-0.19: Loading Dose (Units/kg ): 30, Anti-Xa 0.1-0.19: Repeat anti-Xa: 6 hours, Anti-Xa 0.2-0.5: Adjust Dose (Units/kg/hr) by: 0, Anti-Xa 0.2-0.5: Repeat anti-Xa: 6 hours. If two consecutive t herapeutic result, re-check next AM., An ti-Xa > 0.19: Loading Dose (Units/kg): No Loading Dose, Anti-Xa 0.51-0.6: Adjust Dose (Units/kg/hr) by: -1, Anti-Xa 0.51-0.6: Repeat anti-Xa: 6 hours, Anti-Xa 0.61-0.9: Hold Infusion: Stop infusion f or 1 hour, Anti-Xa 0.61-0.9: Adjust Dose (Units/kg/hr) by: -2, Anti-Xa 0.61-0.9: Repeat anti-Xa: 6 hours after Heparin resumed, Anti-Xa >= 0.91: Hold Infusion: Stop infusion for 2 hours, Anti-Xa >= 0 .91: Adjust Dose (Units/kg/hr) by: -4, Anti-Xa >= 0.91: Repeat anti-Xa: 6 hours after Heparin resumed PRN Medication Order 09/17/2019 09/18/2019 09/19/2019 heparin (porcine) 1,000 unit/mL injection 2,900 Units(Linked Eric up 1) 2,900 Units (rounded from 2,919 Units = 30 Units/kg ? 97.3 kg Dosing weight), intravenous, As needed, antiXa 0.1-0.19, Starting on Sun09/15/19 at 1551, Intensity type: Moderate, Anti-Xa < 0.1: Loadi ng Dose (Units/kg): 60, Anti-Xa 0.1-0.19 : Loading Dose (Units/kg): 30, Anti-Xa > 0.19: Loading Dose (Units/kg): No Loading Dose heparin (porcine) 1,000 unit/mL injection 5,800 Units(Linked Eric up 1) 5,800 Units (rounded from 5,838 Units = 60 Units/kg ? 97.3 kg Dosing weight), intravenous, As needed, antiXa less than 0.1, Starting on Sun09/15/19 at 1551, Intensity type: Moderate, Anti-Xa < 0.1: Loading Dose (Units/kg): 60, Anti-Xa 0.1 -0.19: Loading Dose (Units/kg): 30, Anti-Xa > 0.19: Loading Dose (Units/kg): No Loading Dose lidocaine 10 mg/mL (1 %) injection 0.2 mL (XYLOCAINE) (CANCELED) 0900 (Given - Provider: Annamaria Rushing RDaviNDavi) 0.2 mL, intradermal, As needed, needle i nsertion, Starting on Sun09/17/19 at 0827, Dialysis, As needed with needle insertion for each cannulation. Dialysis order only. lidocaine 10 mg/mL (1 %) injection 0.2 mL (XYLOCAINE) (CANCELED) 0840 (Given - Provider: Trinidad Koenig RDaviNDavi) 0.2 mL, intradermal, As needed, needle i nsertion, Starting on Sun09/19/19 at 0752, Dialysis, As needed with needle insertion for each cannulation. Dialysis order only. lidocaine-prilocaine 2.5-2.5 % cream (EMLA) 0721 (Give n - Provider: Radha Fatima RDaviN.) 0627 (Given - Provider: Rehana Chowdary RRalf) topical, As needed, other, prior to dial ysis on dialysis days MWF, Starting on Sun09/15/19 at 1341 NaCl 0.9 % bolus 100 mL (CANCELED) 0830 (New Bag - Provider: Trinidad Koenig R.N.) 100 mL, intravenous, at 6,000 mL/hr, Adm inister over 1 Minutes, As needed, low blood pressure, see comments, Starting on Sun09/19/19 at 0752, For 5 doses, Dialysis, Administer as fast as possible. May r epeat x 4 for a total volume of 500 mL f or symptomatic hypotension during dialysis. Notify Service if symptomatic hypotension persists after blood pressure support interventions were implemented. sodium chloride 0.9 % flush 250 mL (CANCELED) 0910 (Gi maeve - Provider: Annamaria Rushing R.N.) 250 mL, intravenous, As needed, line car e, For priming and rinse back post dialysis, Starting on Sun09/17/19 at 0827, Dialysis, Dialysis order only. sodium chloride 0.9 % flush 250 mL (CANCELED) 0830 (Given - Provider: Trinidad Koenig R.N.) 250 mL, intravenous, As needed, line car e, For priming and rinse back post dialysis, Starting on Sun09/19/19 at 0752, Dialysis, Dialysis order only. Linked Groups Order Group 1: heparin (porcine) 1,000 unit/mL injection 2,900 UnitsJump to med 2,900 Units (rounded from 2,919 Units = 30 Units/kg ? 97.3 kg Dosing weight), intravenous, As needed, antiXa 0.1-0.19, Starting on Sun09/15/19 at 1551
Intensity type: Moderate
Anti-Xa < 0.1: Loading Dose (Units/kg): 60
A nti-Xa 0.1-0.19: Loading Dose (Units/kg): 30
Anti-Xa > 0.19: Loading Dose (Units/kg): No Loading Dose Or heparin (porcine) 1,000 unit/mL injection 5,800 UnitsJump to med 5,800 Units (rounded from 5,838 Units = 60 Units/kg ? 97.3 kg Dosing weight), intravenous, As needed, antiXa less than 0.1, Starting on 09/15/19 at 1551
Intensity type: Moderate
An ti-Xa < 0.1: Loading Dose (Units/kg): 60
Anti-Xa 0.1-0.19: Loading Dose (Units/kg): 30
Anti-Xa > 0.19: Loading Dose (Units/kg): No Loading Dose documented in this encounter Additional Health Concerns Assessment Noted Time PHQ-9 Depression Total Score: 4 01/30/2019 12:13 PM CD T documented as of this encounter Care Teams Supervisor Char House Relationship Specialty Start Date End Date Elsewhere, Pcp PCP - General 09/17/19 documented as of this encounter
--- OUTSIDE RECORDS SUMMARY | 2022-05-25 13:16 | XMS_ITS | Encounter Summary ---
:1960 Author Organization [facility] Address [address] [place] [address] Care Team Providers Name Role Phone Elsewhere, Pcp Primary Care Provider Unavailable Encounter Details Date Type Department Care Team Description 11/13/2019 Clinical Communication Department of Urology Milady Hooker, in [facility] bozena Duval, M.B.A. [address] [facility] [address] [place] [id number] [phone] Social History Tobacco Use Types Packs/Day Years [...] How often do you attend holiness or mormonism 1 to 4 times per [...] this encounter Miscellaneous Notes Telephone Encounter - Ayanna Hooker M.D., M.B.A. - 11/13/2019 9:18 AM CDT I spoke with Ms. Wray this morning. I explained to the patient that her right stent exchange and all associated pre- and/or post-operative appointments are unable to be scheduled as directed by [facility] related to the COVID-19 disease from Coronavirus.She will be contacted to reschedule once [facility] has advised it is safe to do so. She is currently tolerating her right stent very well anddoes not endorse any pain, hematuria, fever, chills. ?? We also discussed that??information related to COVID-19 disease is rapidly changing. Therefore, it is highly recommended she??seek information from a website that has accurate and the most recent information such as the CDC.??The patient was very understanding and agreeable. All questions were answered to patient satisfaction. ?? Ayanna Hooker MD, PRERNA, MSBA documented in this encounter Plan of Treatment Upcoming Encounters Date Type Specialty Care Team Description 06/01/2022 Telemedicine Pharmacy An Nicholas APRN C.N.PDavi, WhitneyN.P., M.S.N. [address] [place] [address] [phone] (Wo rk) 07/31/2022 Lab Laboratory Medicine Tony Rubalcava M. B., Sydnie, MDebra [address] [place] [address] [phone] ( rk) 07/31/2022 Lab Laboratory Medicine Tony Rubalcava M. B., Sydnie, Mukund [address] [place] [address] [phone] ( rk) 07/31/2022 Office Visit Transplant Tony Rubalcava M.B., Sydnie, Mukund [address] [place] [address] [phone] ( [email or web address]) 07/31/2022 Appointment Radiology Tony Rubalcava M.B., Sydnie, Mukund [address] [place] [address] [phone] ( rk) 08/01/2022 Office Visit Transplant Tony Rubalcava M.B., Sydnie, [place]und [address] [place] [address] [phone] ( rk) 08/01/2022 Clinical Support Transplant Tony Rubalcava M.B., Sydnie, MDebra [address] [place] [address] [phone] ( [email or web address]) documented as of this encounter Visit Diagnoses Not on filedocumented in this encounter Additional Health Concerns Assessment Noted Time PHQ-9 Depression Total Score: 4 01/30/2019 12:13 PM CD T documented as of this encounter Care Teams Booth Usher Relationship Specialty Start Date End Date Elsewhere, Pcp PCP - General 09/17/19 documented as of this encounter
--- OUTSIDE RECORDS SUMMARY | 2022-05-25 13:16 | XMS_ITS | Encounter Summary ---
:1960 Author Organization [facility] Address [address] [place] [address] Care Team Providers Name Role Phone Unavailable Primary Care Provider Unavailable Encounter Details Date Type Department Care Team Description 09/16/2019 Anesthesia Event RST ROMB MAIN OR Dwaine Servin, [address] [place] [address] Mukund, [place] [address] [address] [place] [address] [place] [phone] (Wo rk) Anesthesia Record Procedure Summary Procedure Name Responsible Anesthesia Start Anesthesia Stop Time Anesthesiologist Time EXCHANGE URETERAL Dwaine Servin, 09/16/19 1453 09/16/19 1604 STENT. (Right: Mukund, Ph.D. Ureter) Events Date Time Event Comment 09/16/2019 1151 1452 In Room 1453 An Start Machine/Equipmen t Checked Infection Precautions Foll owed Procedure/Site Verified NPO Sta tus Verified Supine Standard ASA Mon itors Applied 1500 An Induction 1501 An Intubation 1503 Turnover to Proceduralist 1531 Proc Start 1541 Proc Fin 1548 Turnover to ANE Staff 1550 Airway Removal Criteria Met 1550 Extubation/Airway Removed 1555 an stop data 1556 Out of Room 1604 An End I completed my h andoff to the receiving staff during [facility] we 1. Identified the patient 2. Ident ified the responsible provider 3. Revi ewed the pertinent medical history 4. Discussed the surgical course 5. Review ed intra-op anesthesia management and i ssues during anesthesia 6. Set expectati ons for post-procedure period 7. Allowe d opportunity for questions and ac knowledgement of understanding. Name Total fentanyl injection 50 mcg/mL 100 mcg lidocaine 2% (mg) injection 100 mg propofol 10 mg/mL 180 mg propofol 10 mg/mL infusion 459.78 mg ondansetron 4 mg/2 mL injection 4 mg dexamethasone 4 mg/mL injection 4 mg ceFAZolin injection 2,000 mg (ANCEF) 2 g heparin (porcine) 100 Units/mL in D5W 250 mL infusion 1,284.36 Units droperidol 2.5 mg/mL injection 0.625 mg NaCl 0.9 % free drip 200 mL Agents No agents on file. Blood No blood administrations on file. Lines, Drains, and Airways Type Details Placement Removal Hemodialysis AV Access Placement Date: 05/06/19 05/06/19 0000 by (present upon arrival to Xin Proctor, pacu) R.N. Hemodialysis AV Access Placement Date: 05/06/19 0000 by 04/07/22 0000 by 05/06/19; Removal Date: Harini Lim Sack ett, Colin J, 04/07/22 (duplicate LDA) R.N. R.N. Peripheral IV Placement Date: 09/15/19 1603 by 09/19/19 1309 b y 09/15/19; Placement [place] leigh Time: 1603; Catheter E, R.N. Size: 22 G; Orientation: Left; Location: Hand; Site Prep: Chlorhexidine (Preferred); Technique: (VCL); Inserted by: LIEN; Removal Date: 09/19/19; Removal Time: 1309 Supraglottic Airway Placement Date: 09/16/19 1501 by 09/16/19 15 52 by 09/16/19; Placement Glenys Schwab, Haris Schwab, Time: 1501 (created via R.N. R.N. procedure documentation); Mask Ventilation: Easy mask; Removal Date: 09/16/19; Removal Time: 1552 documented in this encounter Social History Tobacco [...] How often do you attend pentecostalism or adventism 1 to 4 times per [...] encounter OR Notes Anesthesia Postprocedure Evaluation - Dwaine Servin M.D., Ph.D. - 09/16/2019 4:20 PM CST Patient: Shabnam Wray Procedure Summary Date: 09/16/19 Room / Location: [place] [address] ROMB 528 / [facility] in [place], [place] Anesthesia Start: 1453 Anesthesia Stop: 1604 Procedures: EXCHANGE URETERAL STENT. (Right Ureter) Retrograde Pyelogram (Right Ureter) Diagnosis: Obstruction Ureteropelvic (Obstruction Ureteropelvic [N13.5].) Provider: Jakub Ray M.D., Ph.D. Responsible Provider: Dwaine Servin M.D., Ph.D. Anesthesia Type: general ASA Status: 4 Anesthesia Type: general Last vitals Vitals Value Taken Time BP 142/76 09/16/2019 4:15 PM Temp 36.9 ??C 09/16/2019 4:00 PM Pulse 61 09/16/2019 4:20 PM Resp 12 09/16/2019 4:20 PM SpO2 98 % 09/16/2019 4:20 PM Vitals shown include unvalidated device data. Please reference Vitals flowsheet for most recent vital signs. Anesthesia Post Evaluation Patient Disposition: general care unit Cardiovascular status: hemodynamics (HR & BP) acceptable Respiratory status: patent airway with spontaneous effort Temperature: normothermic Oxygen requirements: nasal cannula Level of consciousness: awake Pain score: pain adequately controlled and/or at baseline Post Op nausea/vomiting: none Hydration status: euvolemic E PRACTITIONER HOME ASSESSMENTS Anesthesia Procedure Notes - Glenys Andreson R.N., CCRN - 09/16/2019 3:09 PM CSTAssociated Order(s): Airway Airway Date/Time: 09/16/2019 3:01 PM Performed by: Glenys Anderson R.N., CCRN Authorized by: Dwaine Servin M.D., Ph.D. Patient location during procedure: OR / Procedure Area PROCEDURE DETAILS: Mask difficulty assessment: easy mask Final airway type: supraglottic airway Laryngeal Manipulation: no Supraglottic device: LMA unique Supraglottic device size: 5 Adult device size: 5 Number of attempt to successful placement: 1 Airway confirmation: bilateral breath sounds, positive ETCO2 and bilateral chest rise Other previous techniques attempted: none PRE PROCEDURE DETAILS: Pre evaluation for airway management: procedure Urgency: elective Preop assessment of probable difficulty: no difficulty anticipated Preoxygenation: bag valve mask SEDATION / ANESTHESIA Anesthesia method: anesthesia POST PROCEDURE DETAILS: Procedure outcome: successful Airway event: no complications E PRACTITIONER HOME ASSESSMENTS Anesthesia Preprocedure Evaluation - Dwaine Servin M.D., Ph.D. - 09/16/2019 11:49 AM CST Preprocedure Anesthesia & H&P Assessment Procedure Summary Date/Time: 09/16/19 1255 Procedure: EXCHANGE URETERAL STENT. (Right ) Diagnosis: Obstruction Ureteropelvic [N13.5] Pre-op diagnosis: Obstruction Ureteropelvic [N13.5]. Location: [address] [facility] / [facility] in [place], [place] Provider: Jakub Ray M.D., Ph.D. Pertinent components of the patient's history including [...] II TM Distance: >3 FB Neck ROM: Full Mouth Opening: >3 cm Upper Lip Bite Test Class: I Cardiovascular Rhythm: Regular Rate: Normal Cardiovascular Assessment: cardiovascular normal Functional Capacity: >4 METS Pulmonary Pulmonary Assessment: Clear General / Constitutional Constitutional Assessment: Obese General State of Health:: healthy appearing and calm ASSESSMENT / PLAN ANESTHESIA PLAN ASA: 4 Anesthesia Plan: general Patient seen and allergies reviewed, anesthesia plan and risks discussed directly with patient /legal guardian or through an report clerk. Risks/Benefits/Alternatives of Blood transfusion discussed with patient / legal guardian, including an opportunity to ask questions and/or decline some or all transfusion therapies. The patient / legalguardian consented to the use of all blood products, as deemed medically necessary Approval to Proceed: approved for anesthesia GETA Glidescope TIVA propofol remifentanil + desflurane 1% PONV prophylaxis 0.9% NaCl (aq) as IV fluid. E PRACTITIONER HOME ASSESSMENTS documented in this encounter Plan of Treatment Upcoming Encounters Date Type Specialty Care Team Description 06/01/2022 Telemedicine Pharmacy An Nicholas APRN C.N.P., D.N.P., M.S.N. [address] [place] [address] [phone] (Wo rk) 07/31/2022 Lab Laboratory Medicine Tony Rubalcava M. B., Sydnie, Mukund [address] [place] [address] [phone] (Wo rk) 07/31/2022 Lab Laboratory Medicine Tony Rubalcava M. B., Sydnie, Mukund [address] [place] [address] [phone] (Wo rk) 07/31/2022 Office Visit Transplant Tony Rubalcava M.B., Sydnie, Mukund [address] [place] [address] [phone] (Wo rk) 07/31/2022 Appointment Radiology Tony Rubalcava M.B., Sydnie, Mukund [address] [place] [address] [phone] (Wo rk) 08/01/2022 Office Visit Transplant Tony Rubalcava M.B., Sydnie, Mukund [address] [place] [address] [phone] (Wo rk) 08/01/2022 Clinical Support Transplant BentallTony M.B., Shashi Otoole. [address] [place], [place] [phone] (Wo rk) documented as of this encounter Procedures Procedure Name Priority Date/Time Associated Diagnosis Comme nts LDA ANE Routine 09/16/2019 3:09 PM Results f or this NON-SURGICAL AIRWAY NURSE PRACTITIONER HOME ASSESSMENTS procedur e are in the results section. documented in this encounter Results LDA ANE NON-SURGICAL AIRWAY (09/16/2019 3:09 PM NURSE PRACTITIONER HOME ASSESSMENTS) Narrative Glenys Anderson R.N., SHELLY - 020 3:09 PM NURSE PRACTITIONER HOME ASSESSMENTS Glenys Anderson R.N., SHELLY ? 09/16/2019 ??3:09 PM Airway Date/Time: 09/16/2019 3:01 PM Performed by: Glenys Anderson R.N., LUZN Authorized by: Dwaine Servin M.D ., Ph.D. Patient location during procedure: OR / Procedure Area PROCEDURE DETAILS: Mask difficulty assessment: easy mask Final airway type: supraglottic airway Laryngeal Manipulation: no ?? Supraglottic device: LMA unique ?? Supraglottic device size: 5 ?? Adult device size: 5 Number of attempt to successful placemen t: [...] outcome: successful ?? Airway event: no complications Dwaine Servin M.D., Ph.D. ANESTHESIA ORDERABLES documented in this encounter Visit Diagnoses Not on filedocumented in this encounter Administered Medications Inactive Administered Medications - up to 3 most recent administrations Medication Order MAR Action Action Date Dose Rate Site ceFAZolin injection 2,000 mg (ANCEF) Given 09/16/2019 3:28 PM NURSE PRACTITIONER HOME ASSESSMENTS 2 g 2,000 mg (rounded from 2,432.5 mg = 25 mg/kg ? 97.3 kg Dosing weight), intravenous, Once, On Sun09/16/19 at 1430, For 1 dose, Intra-Op, Preoperatively within 1 hour prior to surgical incision If needed, reconstitute vial per package insert instructions. See IVAG for administration guidelines. , , Drug Monitoring Program: Pharmacist to adjust medication dosing based on indication and drug clearance factors., Indications: Prophylaxis, surgical dexamethasone injection (DECADRON) Given 09/16/2019 3:12 PM NURSE PRACTITIONER HOME ASSESSMENTS 4 mg As needed, Starting on Sun09/16/19 at 1512, Anesthesia Intra-op droperidol injection (INAPSINE) Given 09/16/2019 3:41 PM NURSE PRACTITIONER HOME ASSESSMENTS 0.625 mg intravenous, As needed, Starting on Sun09/16/19 at 1541, Anesthesia Intra-op fentaNYL injection (SUBLIMAZE) Given 09/16/2019 3:32 PM NURSE PRACTITIONER HOME ASSESSMENTS 50 mcg intravenous, As needed, Starting on Sun09/16/19 at 1501, Anesthesia Intra-op Given 09/16/2019 3:01 PM NURSE PRACTITIONER HOME ASSESSMENTS 50 mcg heparin (porcine) 100 Rate/Dose Verify 09/19/2019 7:00 10.997 Units /kg/hr 10.7 mL/hr Units/mL in D5W 250 AM NURSE PRACTITIONER HOME ASSESSMENTS mL infusion 0-40 Units/kg/hr ? 97.3 kg [...] Heparin resumed New Bag 09/18/2019 9:34 PM NURSE PRACTITIONER HOME ASSESSMENTS 11 Units/kg/hr 10.7 mL/hr Rate/Dose Verify 09/18/2019 8:57 AM NURSE PRACTITIONER HOME ASSESSMENTS 11 Units/kg/hr 10.7 mL/hr lidocaine (PF) (cardiac) injection Given 09/16/2019 3:00 PM NURSE PRACTITIONER HOME ASSESSMENTS 100 mg intravenous, As needed, Starting on Sun09/16/19 at 1500, Anesthesia Intra-op NaCl 0.9% infusion New Bag 09/16/2019 2:57 PM NURSE PRACTITIONER HOME ASSESSMENTS intravenous, Continuous Infusion: Per Instructions PRN, Starting on Sun09/16/19 at 1457, Anesthesia Intra-op ondansetron (PF) injection (ZOFRAN) Given 09/16/2019 3:41 PM NURSE PRACTITIONER HOME ASSESSMENTS 4 mg intravenous, As needed, Starting on Sun09/16/19 at 1541, Anesthesia Intra-op propofol 10 mg/mL infusion Rate/Dose 09/16/2019 3:36 75 mcg/kg/min 4 2.7 mL/hr (DIPRIVAN) Change PM NURSE PRACTITIONER HOME ASSESSMENTS intravenous, Continuous Infusion: Per Instructions PRN, Starting on Sun09/16/19 at 1500, Anesthesia Intra-op Rate/Dose Change 09/16/2019 3:29 PM NURSE PRACTITIONER HOME ASSESSMENTS 125 mcg/kg/min 71.1 mL/hr Rate/Dose Change 09/16/2019 3:14 PM NURSE PRACTITIONER HOME ASSESSMENTS 100 mcg/kg/min 56.9 mL/hr propofol injection (DIPRIVAN) Given 09/16/2019 3:00 PM NURSE PRACTITIONER HOME ASSESSMENTS 180 mg intravenous, As needed, Starting on Sun09/16/19 at 1500, Anesthesia Intra-op documented in this encounter Additional Health Concerns Assessment Noted Time PHQ-9 Depression Total Score: 4 01/30/2019 12:13 PM CD T documented as of this encounter
--- OUTSIDE RECORDS SUMMARY | 2022-05-25 13:16 | XMS_ITS | Encounter Summary ---
:1960 Author Organization [facility] Address [address] [place] [address] Care Team Providers Name Role Phone Elsewhere, Pcp Primary Care Provider Unavailable Encounter Details Date Type Department Care Team Description 11/12/2019 Hospital Encounter Department of [place], Ivan Samano Renal Laboratory Medicine RFID MANAGER, C.N.P., (HCC) and Pathology, D.N.P. [facility] in [address] [place] [phone] [place] [address] [place], [place] (Work) [phone] Social History Tobacco Use Types Packs/Day Years [...] 12/23/2021 relatives? How often do you attend samaritan or judaism 1 to 4 times per year 12/23/2021 services? Do you belong to any clubs or organizations such No 12/23/2021 as samaritan groups, unions, fraternal or athletic groups, or [...] % topically daily as cream needed (Eczema). crisaborole (Eucrisa) 2 Apply 1 Film 1 Tube 3 10/22/2019 12/21/2019 % ointment topically 2 (two) times a day. acetaminophen (TYLENOL) [...] by mouth 2 (two) times a day. lidocaine-prilocaine APPLY TOPICALLY TO 60 g 11 [...] Nicholas APRN, C.N.P., D.N.P., M.S.N. [address] [place] [address] [phone] (Wo rk) 07/31/2022 Lab Laboratory Medicine Tony Rubalcava M. B., Ch.B., M.D. [address] [place] [address] [phone] (Wo rk) 07/31/2022 Lab Laboratory Medicine Tony Rubalcava M. B., Ch.B., M.D. [address] [place] [address] [phone] (Wo rk) 07/31/2022 Office Visit Transplant Tony Rubalcava M.B., Sydnie, Mukund [address] [place] [address] [phone] (Wo rk) 07/31/2022 Appointment Radiology Tony Rubalcava M.B., Mukund Otoole [address] [place] [address] [phone] (Wo rk) 08/01/2022 Office Visit Transplant Tony Rubalcava M.B., Mukund Otoole [address] [place] [address] [phone] (Wo rk) 08/01/2022 Clinical Support Transplant Tony Rubalcava M.B., Sydnie, Mukund [address] [place] [address] [phone] (Wo rk) documented as of this encounter Procedures Procedure Name Priority Date/Time Associated Comments Diagnosis TACROLIMUS LEVEL, B Routine 12/01/2019 5:25 AM Transplant Jessica l Results for this CDT (HCC) procedure are i n the results section. documented in this encounter Results (ABNORMAL) Tacrolimus, B (12/01/2019 5:25 AM CDT) P athologist Signature Tacrolimus, B 4.1 (L) 5.0-15.0 12/03/2019 SDSC (Trough) 1:13 PM CDT ng/mL Comment: ----ADDITIONAL INFORMATION---- Target [...] its performa nce characteristics determined by [facility] in a manner consistent with CLIA requirements. This test has not been cleared or approved by the U.[place] J[place] d and Drug Administration. Specimen Anatomical Collection Method Collection Time Receive d Time (Source) Location / / Volume Laterality Blood (Blood, 12/01/2019 5:25 AM 12/03/19 9:29 Venous) CDT AM CDT Alexa Adan APRN, C.N.P., D.N.P. LAB BLOOD NON ADD -ON Performing Organization Address City/State/[facility] Code Phon e Number [facility] [address] [place] [address] SU[facility] [place] [address] Laboratory Medicine and Pathology [address] [place] documented in this encounter Visit Diagnoses Diagnosis Transplant Renal (HCC) documented in this encounter Additional Health Concerns Assessment Noted Time PHQ-9 Depression Total Score: 4 01/30/2019 12:13 PM CD T documented as of this encounter Care Teams Bisque Grader Relationship Specialty Start Date End Date Elsewhere, Pcp PCP - General 09/17/19 documented as of this encounter
--- OUTSIDE RECORDS SUMMARY | 2022-05-25 13:16 | XMS_ITS | Encounter Summary ---
:1960 Author Organization [facility] Address [address] [place] [address] Care Team Providers Name Role Phone Elsewhere, Pcp Primary Care Provider Unavailable Encounter Details Date Type Department Care Team Description 11/05/2019 Clinical Communication Norma Mcdonald [facility] for M, BEAUTY COUNSELOR, C.N.P., Transplantation and D.N.P. Clinical Regeneration in [address] [place] [address] [place] [phone] [place] [address] [phone] Social History Tobacco Use Types Packs/Day Years [...] How often do you attend advent or anglican 1 to 4 times per [...] Nicholas APRN, C.N.P., D.N.P., M.S.N. [address] [place] [address] [phone] (Nicolas wen) 07/31/2022 Lab Laboratory Medicine Tony Rubalcava M. B., ChDaviBDavi, M.D. [address] [place] [address] [phone] (Nicolas wen) 07/31/2022 Lab Laboratory Medicine Tony Rubalcava M. B., ChDaviBDavi, M.D. [address] [place] [address] [phone] (Nicolas wen) 07/31/2022 Office Visit Transplant Tony Rubalcava M.B., ChBurke, MElvia. [address] [place] [address] [phone] (Nicolas wen) 07/31/2022 Appointment Radiology Tony Rubalcava M.B., Mukund Otoole [address] [place], [place] 55 [phone] (Nicolas wen) 08/01/2022 Office Visit Transplant Tony Rubalcava M.B., Mukund Otoole [address] [place], [place] [phone] (Nicolas wen) 08/01/2022 Clinical Support Transplant Tony Rubalcava M.B., Mukund Otoole [address] [place], [place] [phone] (Nicolas wen) documented as of this encounter Results (ABNORMAL) Tacrolimus, B (12/01/2019 5:25 AM CDT) athologist Signature Tacrolimus, B 4.1 (L) 5.0-15.0 12/03/2019 [facility] (Trough) 1:13 PM CDT ng/mL Comment: ----ADDITIONAL [...] and its performa nce characteristics determined by [facility] in a manner consistent with CLIA requirements. [...] City/State/ZIP Code Phon e Number [facility] [address] [place] [phone] SUPPORT CENTER [facility] [place] [address] Laboratory Medicine and Pathology [address] [place] documented in this encounter Visit Diagnoses Diagnosis Transplant Renal (HCC) - Primary documented in this encounter Additional Health Concerns Assessment Noted Time PHQ-9 Depression Total Score: 4 01/30/2019 12:13 PM CD T documented as of this encounter Care Teams Director Labor Standards Relationship Specialty Start Date End Date Elsewhere, Pcp PCP - General 09/17/19 documented as of this encounter
--- OUTSIDE RECORDS SUMMARY | 2022-05-25 13:16 | XMS_ITS | Encounter Summary ---
:1960 Author Organization [facility] Address [address] [place] [address] Care Team Providers Name Role Phone Elsewhere, Pcp Primary Care Provider Unavailable Encounter Details Date Type Department Care Team Description 11/13/2019 Orders Only Pharmacy Prior Auth Janis Weldon [phone] Social History Tobacco Use Types Packs/Day Years [...] How often do you attend caodaism or jainism 1 to 4 times per [...] Nicholas APRN C.N.P., D.N.P., M.S.N. [address] [place] [address] [phone] (Nicolas wen) 07/31/2022 Lab Laboratory Medicine Tony Rubalcava M. B., ChDaviBDavi, M.D. [address] [place] [address] [phone] (Nicolas wen) 07/31/2022 Lab Laboratory Medicine Tony Rubalcava M. B., ChDaviBDavi, M.D. [address] [place] [address] [phone] (Nicolas wen) 07/31/2022 Office Visit Transplant Tony Rubalcava M.B., ChDaviBDavi, M.D. [address] [place] [address] [phone] (Nicolas wen) 07/31/2022 Appointment Radiology Tony Rubalcava M.B., ChDaviBDavi, MDaviD. [address] [place] [address] [phone] (Nicolas wen) 08/01/2022 Office Visit Transplant Tony Rubalcava M.B., Mukund Otoole [address] [place], [place] [phone] (Wo rk) 08/01/2022 Clinical Support Transplant Tony Rubalcava M.B., Mukund Otoole [address] [place], [place] [phone] (Wo behzad) documented as of this encounter Visit Diagnoses Not on filedocumented in this encounter Additional Health Concerns Assessment Noted Time PHQ-9 Depression Total Score: 4 01/30/2019 12:13 PM CD T documented as of this encounter Care Teams Hogshead Packer Relationship Specialty Start Date End Date Elsewhere, Pcp PCP - General 09/17/19 documented as of this encounter
--- OUTSIDE RECORDS SUMMARY | 2022-05-25 13:16 | XMS_ITS | Encounter Summary ---
:1960 Author Organization [facility] Address [address] [place] [address] Care Team Providers Name Role Phone Elsewhere, Pcp Primary Care Provider Unavailable Encounter Details Date Type Department Care Team Description 12/11/2019 Hospital Encounter Department of Soraya Lu Renal Laboratory Medicine M, PJacy-C., M.S. ([facility]) and Pathology, [address] [place] [address] in [place] [phone] [place] [phone] [place] [address] (Work) [place] [phone] Social History Tobacco Use Types [...] How often do you attend buddhism or hinduism 1 to 4 times per [...] 1 Take 3 capsules (3 450 capsule 11/1902/26/2020 mg capsule mg total) by mouth [...] An Nicholas APRN, C.N.P., D.N.P., M.S.N. 200 [place], [place] [phone] (Wo rk) 07/31/2022 Lab Laboratory Medicine Tony Rubalcava M. B., Ch.B., M.D. 200 [place], [place] [phone] (Wo rk) 07/31/2022 Lab Laboratory Medicine Tony Rubalcava M. B., Ch.B., M.D. [address] [place] [address] [phone] (Wo rk) 07/31/2022 Office Visit Transplant Tony Rubalcava M.B., Sydnie, Mukund [address] [place] [address] [phone] (Wo rk) 07/31/2022 Appointment Radiology Tony Rubalcava M.B., Mukund [place]to[place] [address] [place] [address] [phone] (Wo rk) 08/01/2022 Office Visit Transplant Tony Ruablcava M.B., Mukund [place] [address] [place] [address] [phone] (Wo rk) 08/01/2022 Clinical Support Transplant Tony Rubalacva M.B., Sydnie, Mukund [address] [place] [address] [phone] (Wo rk) documented as of this encounter Procedures Procedure Name Priority Date/Time Associated Comments Diagnosis TACROLIMUS LEVEL, B Routine 12/31/2019 5:15 AM Transplant Jessica l Results for this CDT (HCC) procedure are i n the results section. documented in this encounter Results (ABNORMAL) Tacrolimus, B (12/31/2019 5:15 AM CDT) athologist Signature Tacrolimus, B 3.8 (L) 5.0-15.0 01/05/2020 [facility] (Trough) 2:54 PM CDT ng/mL Comment: ----ADDITIONAL INFORMATION---- Target [...] performa nce characteristics determined by [facility] in a manner consistent with CLIA requirements. This test has not been cleared or approved by the U.[place]. J[place] d and Drug Administration. Specimen Anatomical Collection Method Collection Time Receive d Time (Source) Location / / Volume Laterality Blood (Blood, 12/31/2019 5:15 AM 01/05/20 20 Venous) CDT 11:29 AM CDT Resulting Agency Comment Mailed In Specimen Soraya Lu P.A.-C., M.S. LAB BLOOD NON ADD-ON Performing Organization Address City/State/ZIP Code Phon e Number [facility] [address] [place] [address] SUPPORT CENTER [facility] [place] [address] Laboratory Medicine and Pathology [address] [place] documented in this encounter Visit Diagnoses Diagnosis Transplant Renal (HCC) documented in this encounter Additional Health Concerns Assessment Noted Time PHQ-9 Depression Total Score: 4 01/30/2019 12:13 PM CD T documented as of this encounter Care Teams Fire Battalion Chief Relationship Specialty Start Date End Date Elsewhere, Pcp PCP - General 09/17/19 documented as of this encounter
--- OUTSIDE RECORDS SUMMARY | 2022-05-25 13:16 | XMS_ITS | Encounter Summary ---
:1960 Author Organization [facility] Address [address] [place] [address] Care Team Providers Name Role Phone Elsewhere, Pcp Primary Care Provider Unavailable Reason for Visit Reason Comments Tacrolimus Adjustment Protocol Encounter Details Date Type Department Care Team Description 12/08/2019 Clinical Debbie [facility] for M, R.N., Adjustment Transplantation and C.C.T.C. Protocol Clinical Regeneration [address] [facility] in [facility] [phone] [place] [address] [place], [place] (Work) [phone] Social History Tobacco Use Types Packs/Day Years [...] 12/23/2021 relatives? How often do you attend gnosticist or roman catholic 1 to 4 times per year 12/23/2021 services? Do you belong to any clubs or organizations such No 12/23/2021 as gnosticist groups, unions, fraternal or athletic groups, or [...] this encounter Miscellaneous Notes Telephone Encounter - Debbie Salomon R.N., C.C.T.C. - 12/08/2019 1:35 PM CDT Tacrolimus level of 4.1 not within target range of 6-8, per Tacrolimus Adjustment Protocol dose change recommended. Current dose 2 mg twice a day New dose 3 mg every morning and 2 mg every evening Repeat tacrolimus level in 2 weeks Lab to send routine results for review. documented in this encounter Plan of Treatment Upcoming Encounters Date Type Specialty Care Team Description 06/01/2022 Telemedicine Pharmacy An Nicholas APRN, C.N.P., D.N.P., M.S.N. [address] [place] [address] [phone] (Nicolas wen) 07/31/2022 Lab Laboratory Medicine Tony Rubalcava M. B., Sydnie, M.Michelle. [address] [place] [address] [phone] (Nicolas wen) 07/31/2022 Lab Laboratory Medicine Tony Rubalcava M. B., Sydnie, Mukund [address] [place] [address] [phone] (Wo rk) 07/31/2022 Office Visit Transplant Tony Rubalcava M.B., Sydnie, Mukund [address] [place] [address] [phone] (Wo rk) 07/31/2022 Appointment Radiology Tony Rubalcava M.B., Sydnie, Mukund [address] [place] [address] [phone] (Wo rk) 08/01/2022 Office Visit Transplant Tony Rubalcava M.B., Sydnie, Mukund [address] [place] [address] [phone] (Wo rk) 08/01/2022 Clinical Support Transplant Tony Rubalcava M.B., Sydnie, Mukund [address] [place] [address] [phone] (Wo rk) documented as of this encounter Visit Diagnoses Not on filedocumented in this encounter Additional Health Concerns Assessment Noted Time PHQ-9 Depression Total Score: 4 01/30/2019 12:13 PM CD T documented as of this encounter Care Teams Manager Fleet Relationship Specialty Start Date End Date Elsewhere, Pcp PCP - General 09/17/19 documented as of this encounter
--- OUTSIDE RECORDS SUMMARY | 2022-05-25 13:16 | XMS_ITS | Encounter Summary ---
:1960 Author Organization [facility] Address [address] [place] [address] Care Team Providers Name Role Phone Elsewhere, Pcp Primary Care Provider Unavailable Encounter Details Date Type Department Care Team Description 12/04/2019 Clinical Communication [facility] M.S. Transplantation and [address] [place] [address] Clinical [place], [place] in [facility] [phone] [place] [address] [place], [place] (Work) [phone] Social History Tobacco Use Types Packs/Day Years [...] How often do you attend mandaeism or advent 1 to 4 times per [...] Nicholas APRN, C.N.P., D.N.P., M.S.N. [address] [place] [address] 55 [phone] (Nicolas wen) 07/31/2022 Lab Laboratory Medicine Tony Rubalcava M. B., ChDaviBDavi, M.D. [address] [place] [address] 55 [phone] (Nicolas wen) 07/31/2022 Lab Laboratory Medicine Tony Rubalcava M. B., ChDaviBDavi, M.D. [address] [place] [address] 55 [phone] (Nicolas wen) 07/31/2022 Office Visit Transplant Tony Rubalcava M.B., ChBurke, MElvia. [address] [place] [address] 55 [phone] (Nicolas wen) 07/31/2022 Appointment Radiology Tony Rubalcava M.B., Mukund [place] [address] [place], [place] 55 [phone] (Wo rk) 08/01/2022 Office Visit Transplant Tony Rubalcava M.B., Mukund [place] [address] [place] [address] [phone] (Wo rk) 08/01/2022 Clinical Support Transplant Tony Rubalcava M.B., Mukund [place] [address] [place], [place] 55 [phone] (Wo rk) documented as of this encounter Results HLA Class II SAB Antibody Screen (12/15/2019 5:15 AM CDT) [facility] Method Time Signature Class II SAB Positive Not Applicable 12/18/2019 DBB8 Overall 10:56 AM CDT Result Class II SAB 37 12/18/2019 DBB8 cPRA 10:56 AM CDT Comment: ----ADDITIONAL INFORMATION---- This PRA is a [facility] calculated PRA. PRA is based on the antigen frequency of the Tissue Typing patient a nd donor population. ??PRA reflects all antibodie s with a normalized value (MFI) above 300. SAB DRB1 Specificity NONE 12/18/2019 10:56 AM CDT DBB8 SAB [id number] Specificity NONE 12/18/2019 10:56 AM CDT DBB8 SAB DQB1 Specificity see below 12/18/2019 10:56 AM CDT DBB8 Comment: 2[42891], 2[749] Format: Serologic equivalent/abbreviated specificity [Normalized Value] shown in decreasing o rder. Note: A serologic equivalent/abbreviated specifi city displayed multiple times could indicate different alleles. SAB DPB1 Specificity see below 12/18/2019 10:56 AM CDT DBB8 Comment: 28[450], 6[360], 3[328] Format: Serologic equivalent/abbreviated specificity [Normalized Value] shown in decreasing o rder. Note: A serologic equivalent/abbreviated specifi city displayed multiple times could indicate different alleles. ----ADDITIONAL INFORMATION---- Method: Luminex Flow Cytometry CLIA: [id number] ??CLIA Ward Nurse: SHANTA LOYD MD,PhD Specimen Anatomical Collection Method Collection Time Receive d Time (Source) Location / / Volume Laterality Blood (Blood, 12/15/2019 5:15 AM 12/16/19 20 Venous) CDT 11:56 AM CDT Resulting Agency Comment Mailed In Specimen Soraya Lu P.A.-C., M.S. LAB HLA ORDERABLES Performing Organization Address City/State/ZIP Code Phon e Number [facility] - [address] [place], [place] [address] [facility] [place] [address] Laboratories-[facility] [address] HLA Class I SAB Antibody Screen (12/15/2019 5:15 AM CDT) [facility] Method Time Signature Class I SAB Positive Not Applicable 12/18/2019 DBB8 Overall 10:14 AM CDT Result Class I SAB 79 12/18/2019 DBB8 cPRA 10:14 AM CDT Comment: ----ADDITIONAL INFORMATION---- This PRA is a [facility] calculated PRA. PRA is based on the antigen frequency of the Tissue Typing patient a nd donor population. ??PRA reflects all antibodie s with a normalized value (MFI) above 300. SAB A Specificity see below 12/18/2019 10:14 AM CD T DBB8 Comment: 32[3517], 25[2148], 23[1884], 24[1640], 24[1573], 31[1080], 30[894], 30[849] Format: Serologic equivalent/abbreviated specificity [Normalized Value] shown in decreasing o rder. Note: A serologic equivalent/abbreviated specifi city displayed multiple times could indicate different alleles. SAB B Specificity see below 12/18/2019 10:14 AM CD T DBB8 Comment: 51[7667], 51[5205], 49[4308], 78[3118], 38[3056], 63[2868], 59[2738], 77[2691], 57[2570], 52[2546], 75[2472], 57[2284], 53[2151], 58[2075], 44[908], 37[873], 27 [818], 44[635], 75[613], 47[552], 13[480], 71[410] Format: Serologic equivalent/abbreviated specificity [Normalized Value] shown in decreasing o rder. Note: A serologic equivalent/abbreviated specifi city displayed multiple times could indicate different alleles. SAB C Specificity NONE 12/18/2019 10:14 AM CD T DBB8 Comment: ----ADDITIONAL INFORMATION---- Method: Luminex Flow Cytometry CLIA: [id number] ??CLIA Ward Nurse: SHANTA LOYD MD,PhD Specimen Anatomical Collection Method Collection Time Receive d Time (Source) Location / / Volume Laterality Blood (Blood, 12/15/2019 5:15 AM 12/16/19 20 Venous) CDT 11:56 AM CDT Resulting Agency Comment Mailed In Specimen Soraya Lu P.A.-C., M.S. LAB HLA ORDERABLES Performing Organization Address City/State/[facility] Code Phon e Number [facility] - [address] [place], [place] [address] [facility] DBB[address] [place] [address] Laboratories-[facility] [address] documented in this encounter Visit Diagnoses Diagnosis Pretransplant Recipient Evaluation Exam - Primary Chronic Kidney Disease documented in this encounter Additional Health Concerns Assessment Noted Time PHQ-9 Depression Total Score: 4 01/30/2019 12:13 PM CD T documented as of this encounter Care Teams Machine Tool Operator Relationship Specialty Start Date End Date Elsewhere, Pcp PCP - General 09/17/19 documented as of this encounter
--- OUTSIDE RECORDS SUMMARY | 2022-05-25 13:16 | XMS_ITS | Encounter Summary ---
:1960 Author Organization [facility] Address [address] [place] [address] Care Team Providers Name Role Phone Elsewhere, Pcp Primary Care Provider Unavailable Encounter Details Date Type Department Care Team Description 12/08/2019 Hospital Encounter Department of Soraya Lu Pre transplant Recipient Evaluation Exam; Laboratory Danial Mascorro., M.S. Chronic Kidney Disease Medicine and [address] [place] [address], [place] [address] [facility] [phone] [place] (Work) [address] [place] [address] [place], [place] (Fax) [phone] Social History Tobacco Use Types Packs/Day [...] How often do you attend yarsani or buddhist 1 to 4 times per [...] Nicholas APRN, C.N.P., D.N.P., M.S.N. [address] [place] [address] 55 [phone] (Wo rk) 07/31/2022 Lab Laboratory Medicine Tony Rubalcava M. B., Ch.B., M.D. 200 [place], [place] 55 [phone] (Wo rk) 07/31/2022 Lab Laboratory Medicine Tony Rubalcava M. B., Ch.B., M.D. [address] [place] [address] 55 [phone] (Wo rk) 07/31/2022 Office Visit Transplant Tony Rubalcava M.B., Sydnie, Mukund [address] [place] [address] 55 [phone] (Wo rk) 07/31/2022 Appointment Radiology Tony Rubalcava M.B., Mukund [place] [address] [place] [address] 55 [phone] (Wo rk) 08/01/2022 Office Visit Transplant Tony Rubalcava M.B., Sydnie, Mukund [address] [place] [address] 55 [phone] (Wo rk) 08/01/2022 Clinical Support Transplant Tony Rubalcava M.B., Sydnie, Mukund [address] [place] [address] 55 [phone] (Wo rk) documented as of this encounter Procedures Procedure Name Priority Date/Time Associated Diagnosis Comme nts HLA CLASS II SAB Routine 12/15/2019 5:15 AM Pretransplant Resu lts for this ANTIBODY SCREEN CDT Recipient Evaluation proc edure are in Exam the results Chronic Kidney Disease secti on. HLA CLASS I SAB Routine 12/15/2019 5:15 AM Pretransplant Resul ts for this ANTIBODY SCREEN CDT Recipient Evaluation proc edure are in Exam the results Chronic Kidney Disease secti on. documented in this encounter Results HLA Class II SAB Antibody Screen (12/15/2019 5:15 AM CDT) [facility] Method Time Signature Class II SAB Positive Not Applicable 12/18/2019 DBB8 Overall 10:56 AM CDT Result Class II SAB 37 12/18/2019 DBB8 cPRA 10:56 AM CDT Comment: ----ADDITIONAL INFORMATION---- This PRA is a [facility] Tiss ue Typing Laboratory calculated PRA. PRA is based on the antigen frequency of the Tissue Typing patient a nd donor population. ??PRA reflects all antibodie s with a normalized value (MFI) above 300. SAB DRB1 Specificity NONE 12/18/2019 10:56 AM CDT DBB8 SAB [id number] Specificity NONE 12/18/2019 10:56 AM CDT DBB8 SAB DQB1 Specificity see below 12/18/2019 10:56 AM CDT DBB8 Comment: 2[27330], 2[469] Format: Serologic equivalent/abbreviated specificity [Normalized Value] shown [...] ----ADDITIONAL INFORMATION---- Method: Luminex Flow Cytometry CLIA: [id number] ??CLIA Word Processing Operator: SHANTA LOYD MD,PhD Specimen Anatomical Collection Method Collection Time Receive d Time (Source) Location / / Volume Laterality Blood (Blood, 12/15/2019 5:15 AM 12/16/19 20 Venous) CDT 11:56 AM CDT Resulting Agency Comment Mailed In Specimen Soraya Lu P.A.-C., M.S. LAB HLA ORDERABLES Performing Organization Address City/State/ZIP Code Phon e Number [facility] - [address] [place], [place] [address] [facility] [place] [address] Laboratories-[facility] [address] HLA Class I SAB Antibody Screen (12/15/2019 5:15 AM CDT) [facility] Method Time Signature Class I SAB Positive Not Applicable 12/18/2019 DBB8 Overall 10:14 AM CDT Result Class I SAB 79 12/18/2019 DBB8 cPRA 10:14 AM CDT Comment: ----ADDITIONAL INFORMATION---- This PRA is a [facility] Tiss ue Typing Laboratory calculated PRA. [...] ----ADDITIONAL INFORMATION---- Method: Luminex Flow Cytometry CLIA: [id number] ??CLIA Word Processing Operator: SHANTA LOYD MD,PhD Specimen Anatomical Collection Method Collection Time Receive d Time (Source) Location / / Volume Laterality Blood (Blood, 12/15/2019 5:15 AM 12/16/19 20 Venous) CDT 11:56 AM CDT Resulting Agency Comment Mailed In Specimen Soraya Lu P.A.-C., M.S. LAB HLA ORDERABLES Performing Organization Address City/State/ZIP Code Phon e Number [facility] - [address] [place], [place] [address] [facility] [place] [place] [place] [address] [facility] [address] documented in this encounter Visit Diagnoses Diagnosis Pretransplant Recipient Evaluation Exam Chronic Kidney Disease documented in this encounter Additional Health Concerns Assessment Noted Time PHQ-9 Depression Total Score: 4 01/30/2019 12:13 PM CD T documented as of this encounter Care Teams Clinical Data Research Relationship Specialty Start Date End Date Elsewhere, Pcp PCP - General 09/17/19 documented as of this encounter
--- OUTSIDE RECORDS SUMMARY | 2022-05-25 13:16 | XMS_ITS | Encounter Summary ---
:1960 Author Organization [facility] Address [address] [place] [address] Care Team Providers Name Role Phone Elsewhere, Pcp Primary Care Provider Unavailable Encounter Details Date Type Department Care Team Description 12/09/2019 Orders Only Charity Desai Tra [facility] for R.N., C.C.T.C. (HCC) (Primary Dx) Transplantation and [address] [place] [address] Clinical Regeneration in [place], [place] [address] [place] [address] [place] [address] (Work) [phone] Social History Tobacco Use Types Packs/Day Years [...] How often do you attend episcopalian or taoism 1 to 4 times per [...] Nicholas APRN, C.N.P., D.N.P., M.S.N. [address] [place] [phone] (Nicolas wen) 07/31/2022 Lab Laboratory Medicine Tony Rubalcava M. B., ChDaviBDavi, M.D. [address] [place] [address] [phone] (Nicolas wen) 07/31/2022 Lab Laboratory Medicine Tony Rubalcava M. B., ChDaviBDavi, M.D. [address] [place] [address] 55 [phone] (Nicolas wen) 07/31/2022 Office Visit Transplant Tony Rubalcava M.B., ChBurke, MElvia. [address] [place] [address] 55 [phone] (Nicolas wen) 07/31/2022 Appointment Radiology Tony Rubalcava M.B., Mukund [place] [address] [place], [place] [address] [phone] (Wo behzad) 08/01/2022 Office Visit Transplant Tony Rubalcava M.B., Mukund [place] [address] [place], [place] 55 [phone] (Nciolas wen) 08/01/2022 Clinical Support Transplant Tony Rubalcava M.B., Mukund [place] [address] [place], [place] 55 [phone] (Nicolas wen) documented as of this encounter Results (ABNORMAL) Tacrolimus, B (12/31/2019 5:15 AM CDT) athologist Signature Tacrolimus, B 3.8 (L) 5.0-15.0 01/05/2020 [facility] (Trough) 2:54 PM CDT ng/mL Comment: ----ADDITIONAL [...] performa nce characteristics determined by [facility] in a manner consistent with CLIA [...] Address City/State/ZIP Code Phon e Number [facility] [address] [place], [place] [address] [facility] [place] [address] Laboratory Medicine and Pathology [address] [place] documented in this encounter Visit Diagnoses Diagnosis Transplant Renal (HCC) - Primary documented in this encounter Additional Health Concerns Assessment Noted Time PHQ-9 Depression Total Score: 4 01/30/2019 12:13 PM CD T documented as of this encounter Care Teams Business Planning Manager Relationship Specialty Start Date End Date Elsewhere, Pcp PCP - General 09/17/19 documented as of this encounter
--- OUTSIDE RECORDS SUMMARY | 2022-05-25 13:17 | XMS_ITS | Encounter Summary ---
:1960 Author Organization [facility] Address [address] [place] [address] Care Team Providers Name Role Phone Unavailable Primary Care Provider Unavailable Encounter Details Date Type Department Care Team Description 09/12/2019 Hospital Encounter [facility] CHRISTOPHER Bruno, C.N.PDavi, in Alvaro CedeñoSRalf [address] [address] [phone] Social History Tobacco Use Types Packs/Day Years [...] How often do you attend alevism or denominational 1 to 4 times per [...] with meals. Lunch tablet and dinner. ciprofloxacin (CIPRO) Take 1 tablet (500 7 tablet 0 201909/19/2019 500 mg tablet mg total) by mouth daily for 7 days. On dialysis days, take after dialysis has been completed. docusate sodium Take 100 mg by mouth 0 09/15/2019 (COLACE) 100 mg capsule at bedtime. gabapentin (NEURONTIN) Take 2 capsules (200 120 capsule 11 12/08/2019 100 mg capsule mg total) by mouth 2 (two) times a day. lidocaine-prilocaine Apply 1 application 30 g 11 201709/15/2019 (EMLA) 2.5-2.5 % cream topically as directed. multivitamin renal Take 1 tablet by 30 tablet 11 06/06/2019 09/22/2021 failure (DIALYVITE) mouth every evening. 100-1 mg tablet mycophenolate Take 1 capsule (250 180 capsule 3 03/14/2019 0 03/05/2020 (CELLCEPT) 250 mg mg total) by mouth 2 capsule (two) times a day. Do not break, cut, or open capsules. nicotine (NICODERM CQ) Apply 14 mg patch 14 patch 3 201809/15/2019 14 mg/24 hr patch daily for four to six weeks, then taper to 7 mg for two to six weeks until off. omeprazole (PriLOSEC) Take 1 capsule (40 60 capsule 11 201809/15/[address] capsule mg total) by mouth 2 (two) times a day before breakfast and dinner. predniSONE (DELTASONE) Take 5 mg by mouth 0 09/16/2019 5 mg tablet daily. predniSONE (DELTASONE) TAKE 1 TABLET(5 MG) 90 tablet 0 06/2110/30/2019 5 mg tablet BY MOUTH DAILY rosuvastatin (CRESTOR) Take 1 tablet (5 mg 90 tablet 3 12/1812/29/2019 5 mg tablet total) by mouth daily. sennosides-docusate Take 2 tablets by 0 9 09/15/2019 sodium (SENOKOT-S) mouth at bedtime as 8.6-50 mg per tablet needed for constipation. sevelamer (RENVELA) 800 Take 800 mg by mouth 0 01/26/2020 mg tablet daily with breakfast. Take with largest meal of the day tacrolimus (PROGRAF) 1 Take 2 capsules (2 360 capsule 3 03/201812/08/2019 mg capsule mg total) by mouth 2 (two) times a day. warfarin (COUMADIN) 1 Take as directed per 100 tablet 11 07/2002/16/2020 mg tablet After Visit Summary. warfarin (COUMADIN) 2.5 As of 08/14/2019, 75 tablet 11 08/1409/19/2019 mg tablet dose is 7.5 mg on Mondays, Wednesdays and Fridays; 5 mg on Tuesdays, , Saturdays and Sundays. warfarin (COUMADIN) 2.5 On 09/19, take 5 mg 75 tablet 08/2202/16/2020 mg tablet daily then check INR 2/3 documented as of this encounter Plan of Treatment Upcoming Encounters Date Type Specialty Care Team Description 06/01/2022 Telemedicine Pharmacy An Nicholas APRN C.NDaviPDavi, D.N.P., M.S.N. [address] [place] [phone] (Wo rk) 07/31/2022 Lab Laboratory Medicine Tony Rubalcava M. B., Sydnie, Mukund [address] [place] [address] [phone] (Wo rk) 07/31/2022 Lab Laboratory Medicine Tony Rubalcava M. B., Sydnie, Mukund [address] [place] [address] 55 [phone] (Wo rk) 07/31/2022 Office Visit Transplant Tony Rubalcava M.B., ChBurke, MDebra [address] [place] [address] 55 [phone] (Wo rk) 07/31/2022 Appointment Radiology Tony Rubalcava M.B., ChDaviBDavi, MDebra [address] [place] [address] 55 [phone] (Wo rk) 08/01/2022 Office Visit Transplant Tony Rubalcava M.B., Sydnie, MDebra [address] [place] [address] 55 [phone] (Wo rk) 08/01/2022 Clinical Support Transplant Tony Rubalcava M.B., ChBurke, M.D. [address] [place] [address] 55 [phone] (Wo rk) documented as of this encounter Procedures Procedure Name Priority Date/Time Associated Diagnosis Comme nts BACTERIAL CULTURE, Routine 09/12/2019 10:18 Obstruction Ureter Results for this AEROBIC + SUSC, AM HAND SPINNER procedure ar e in URINE the results section. URINALYSIS WITH Routine 09/12/2019 10:18 Obstruction Ureter Re sults for this MICROSCOPIC AM HAND SPINNER procedure are i n the results section. documented in this encounter Results (ABNORMAL) Bacterial Culture, Aerobic + Susc, Urine (09/12/2019 10:18 AM HAND SPINNER) Analysis Performed At Patho logist Time Signature Urine Culture Mixed 09/13/2019 [facility] shakir. (A) 9:53 AM HAND SPINNER Specimen Anatomical Collection Method Collection Time Receive d Time (Source) Location / / Volume Laterality Urine (Urine, 09/12/2019 10:18 09/12/2019 2:12 Midstream) AM HAND SPINNER PM HAND SPINNER Comment: Specimen Source Site: Urine Deanne Fisher APRN, C.N.P., M.S.N. LAB MICROBIOLOG Y - GENERAL ORDERABLES Performing Organization Address City/State/ZIP Code Phon e Number [facility]- [address] [place] [address] [place] [address] [address] (ABNORMAL) Urinalysis with Microscopic: Urine, Clean Catch (09/12/2019 10:18 AM HAND SPINNER) P athologist Signature Source Midstream 09/12/2019 FB60 10:21 AM HAND SPINNER Clarity Cloudy (A) Clear 09/12/2019 FB60 10:21 AM HAND SPINNER Color Yellow 09/12/2019 FB60 10:21 AM HAND SPINNER Comment: ----REFERENCE VALUE---- Colorless Yellow Claudette Blood Moderate (A) Negative 09/12/2019 10:21 AM HAND SPINNER FB6 0 Nitrite Positive (A) Negative 09/12/2019 10:21 AM HAND SPINNER FB6 0 Leukocyte Esterase Large (A) Negative 09/12/2019 10:[address] FB60 Protein >=300 (A) mg/dL 09/12/2019 10:21 AM HAND SPINNER FB60 Comment: ----REFERENCE VALUE---- Negative Trace Glucose Negative Negative mg/dL 09/12/2019 10:21 AM HAND SPINNER F B60 Ketones, QI(U) Negative Negative mg/dL 09/12/2019 10:21 AM HAND SPINNER FB60 Bilirubin Negative Negative 09/12/2019 10:21 AM HAND SPINNER FB60 pH 7.5 5.0 - 8.0 09/12/2019 10:21 AM HAND SPINNER FB60 Specific Brisbin 1.020 1.001 - 1.035 09/12/2019 10:21 AM HAND SPINNER FB60 Urobilinogen 0.2 0.2 - 1.0 mg/dL 09/12/2019 10:[address] FB60 White Blood Cells 4-10 /hpf 09/12/2019 10:33 AM CS T FB60 Comment: ----REFERENCE VALUE---- Males: 0-3 Females: 0-10 Unknown: 0-10 Red Blood Cells 3-10 (A) 0 - 2 /hpf 09/12/2019 10:33 AM HAND SPINNER FB60 Bacteria Present (A) None Seen 09/12/2019 10:33 AM HAND SPINNER FB60 Specimen Anatomical Collection Method Collection Time Receive d Time (Source) Location / / Volume Laterality Urine (Urine, 09/12/2019 10:18 09/12/2019 Clean Catch) AM HAND SPINNER 10:18 AM HAND SPINNER Deanne Fisher APRN C.N.P., M.S.N. LAB URINE ORDER JS Performing Organization Address City/State/ZIP Code Phon e Number [address] [place] [address] [facility] FB[facility] [place] [address] [address] documented in this encounter Visit Diagnoses Diagnosis Obstruction Ureter documented in this encounter Additional Health Concerns Assessment Noted Time PHQ-9 Depression Total Score: 4 01/30/2019 12:13 PM CD T documented as of this encounter
--- OUTSIDE RECORDS SUMMARY | 2022-05-25 13:17 | XMS_ITS | Encounter Summary ---
:1960 Author Organization [facility] Address [address] [place] [address] Care Team Providers Name Role Phone Unavailable Primary Care Provider Unavailable Reason for Visit Reason Comments Med Refill Encounter Details Date Type Department Care Team Description 09/02[facility]2019 [facility] Refill Transplantation and Clinical M.B ., Ch.B., M.D. Regeneration in [place], 200 1 [place], [place] [address] [place] [address] [place] [address] [phone] Social History Tobacco Use Types Packs/Day Years [...] often do you attend oriental orthodox or episcopal 1 to 4 times per [...] An Nicholas APRN C.N.P., D.N.P., M.S.N. [address] [place] [address] 55 [phone] (Nicolas wen) 07/31/2022 Lab Laboratory Medicine Tony Rubalcava M. B., ChBurke, M.Michelle. [address] [place] [address] 55 [phone] (Nicolas wen) 07/31/2022 Lab Laboratory Medicine Tony Rubalcava M. B., ChDaviBDavi, MElvia. [address] [place] [address] 55 [phone] (Wo behzad) 07/31/2022 Office Visit Transplant Tony Rubalcava M.B., ChBurke, MElvia. [address] [place] [address] 55 [phone] (Wo behzad) 07/31/2022 Appointment Radiology Tony Rubalcava M.B., Mukund O[place] [address] [place] [address] 55 [phone] (Wo rk) 08/01/2022 Office Visit Transplant Tony Rubalcava M.B., Mukund [place] [address] [place] [address] 55 [phone] (Wo behzad) 08/01/2022 Clinical Support Transplant Tony Rubalcava M.B., Mukund [place] [address] [place] [address] 55 [phone] (Wo behzad) documented as of this encounter Visit Diagnoses Diagnosis Transplant Renal (HCC) documented in this encounter Additional Health Concerns Assessment Noted Time PHQ-9 Depression Total Score: 4 01/30/2019 12:13 PM CD T documented as of this encounter
--- OUTSIDE RECORDS SUMMARY | 2022-05-25 13:17 | XMS_ITS | Encounter Summary ---
:1960 Author Organization [facility] Address [address] [place] [address] Care Team Providers Name Role Phone Elsewhere, Pcp Primary Care Provider Unavailable Reason for Visit Reason Comments Med Refill Encounter Details Date Type Department Care Team Description 09/15/2019 Refill Division of Nephrology and Phillip, Joel Bruno APRN, Med Refill Hypertension in [place], C.N.P ., M.S.N. [place] [address] [facility] [address] [place] [address] [place] [address] [phone] Social History Tobacco Use Types Packs/Day Years [...] How often do you attend mosque or scientology 1 to 4 times per [...] Nicholas APRN, C.N.P., D.N.P., M.S.N. [address] [place] [address] 55 [phone] (Nicolas wen) 07/31/2022 Lab Laboratory Medicine Tony Rubalcava M. B., ChDaviBDavi, M.Michelle. [address] [place] [address] 55 [phone] (Nicolas wen) 07/31/2022 Lab Laboratory Medicine Tony Rubalcava M. B., ChDaviBDavi, MElvia. [address] [place] [address] 55 [phone] (Nicolas wen) 07/31/2022 Office Visit Transplant Tony Rubalcava M.B., ChBurke, MElvia. [address] [place] [address] 55 [phone] (Nicolas wen) 07/31/2022 Appointment Radiology Tony Rubalcava M.B., Mukund [place]to[place] [address] [place] [address] 55 [phone] (Wo rk) 08/01/2022 Office Visit Transplant Tony Rubalcava M.B., Mukund [place] [address] [place] [address] 55 [phone] (Wo rk) 08/01/2022 Clinical Support Transplant Tony Rubalcava M.B., Sydnie, Mukund [address] [place] [address] 55 [phone] (Wo rk) documented as of this encounter Visit Diagnoses Not on filedocumented in this encounter Additional Health Concerns Assessment Noted Time PHQ-9 Depression Total Score: 4 01/30/2019 12:13 PM CD T documented as of this encounter Care Teams Garment Sewer Hand Relationship Specialty Start Date End Date Elsewhere, Pcp PCP - General 09/17/19 documented as of this encounter
--- OUTSIDE RECORDS SUMMARY | 2022-05-25 13:17 | XMS_ITS | Encounter Summary ---
:1960 Author Organization [facility] Address [address] [place] [address] Care Team Providers Name Role Phone Unavailable Primary Care Provider Unavailable Encounter Details Date Type Department Care Team Description 08/18/2019 Clinical Communication [facility], TILE DITCHER, C.N.P., Transplantation and D.N.P. Clinical Regeneration in [address] [place] [address] [place] [address] [place] [address] [phone] Social History Tobacco Use Types Packs/Day Years [...] How often do you attend bahai or tenriism 1 to 4 times per [...] Notes Telephone Encounter - Steve Martínez Jr., D.Jhonny. - 08/29/2019 11:24 AM SHAPER MACHINE HAND She has been having prolonged bleeding following discontinuation of dialysis. Today her INR was registered at 6.5. She is currently using 7 mg of warfarin on Wednesdays, and 5 mg the rest of the week. I'll ask her to hold her warfarin Sunday and Sunday, and then resume at 5 mg per day. I've asked her to have salad these next 2 days with increased vitamin K levels. I would like her INR Re checked on Sunday. ER MACHINE HAND documented in this encounter Plan of Treatment Upcoming Encounters Date Type Specialty Care Team Description 06/01/2022 Telemedicine Pharmacy An Nicholas APRN, C.N.P., D.N.P., M.S.N. [address] [place] [address] 55 [phone] (Wo rk) 07/31/2022 Lab Laboratory Medicine Tony Rubalcava M. B., Sydnie, MDebra [address] [place] [address] 55 [phone] (Wo rk) 07/31/2022 Lab Laboratory Medicine Tony Rubalcava M. B., Sydnie, Mukund [address] [place] [address] 55 [phone] (Wo rk) 07/31/2022 Office Visit Transplant Tony Rubalcava M.B., Sydnie, Mukund [address] [place] [address] 55 [phone] (Wo rk) 07/31/2022 Appointment Radiology oTny Rubalcava M.B., Sydnie, Mukund [address] [place] [address] 55 [phone] (Wo rk) 08/01/2022 Office Visit Transplant Tony Rubalcava M.B., Sydnie, Mukund [address] [place] [address] 55 [phone] (Wo rk) 08/01/2022 Clinical Support Transplant Tony Rubalcava M.B., Sydnie, Mukund [address] [place] [address] 55 [phone] (Wo rk) documented as of this encounter Results Tacrolimus, B (09/03/2019 5:50 AM SHAPER MACHINE HAND) P athologist Signature Tacrolimus, B 9.3 5.0-15.0 09/05/2019 SDSC (Trough) 4:51 PM SHAPER MACHINE HAND ng/mL Comment: ----ADDITIONAL INFORMATION---- Target steady-state trough concentration s vary depending on the type of transplant, concomitant immunosuppressio n, clinical/institutional protocols, and time post-transplant. Results should be interpreted in conjunction with this clinical information and any physic al signs/symptoms of rejection/toxicity. Testing performed by Liquid C2cubeograp hy-Tandem Mass Spectrometry (LC-MS/MS). This test was developed and its performa nce characteristics determined by [facility] in a manner consistent with CLIA requirements. This test has not been cleared or approved by the [place] d and Drug Administration. Specimen Anatomical Collection Method Collection Time Receive d Time (Source) Location / / Volume Laterality Blood (Blood, 09/03/2019 5:50 AM 09/05/19 20 1:33 Venous) SHAPER MACHINE HAND PM SHAPER MACHINE HAND Resulting Agency Comment Mailed In Specimen Alexa Adan APRN, C.N.P., D.N.P. LAB BLOOD NON ADD -ON Performing Organization Address City/State/ZIP Code Phon e Number [facility] [address] [place] [address] SUPPORT CENTER [facility] [place] [address] Laboratory Medicine and Pathology [address] [place] documented in this encounter Visit Diagnoses Diagnosis Transplant Renal (HCC) - Primary documented in this encounter Additional Health Concerns Assessment Noted Time PHQ-9 Depression Total Score: 4 01/30/2019 12:13 PM CD T documented as of this encounter
--- OUTSIDE RECORDS SUMMARY | 2022-05-25 13:17 | XMS_ITS | Encounter Summary ---
:1960 Author Organization [facility] Address [address] [place] [address] Care Team Providers Name Role Phone Unavailable Primary Care Provider Unavailable Encounter Details Date Type Department Care Team Description 09/04/2019 Clinical Communication Ata Hong, Center for Angelina J, Transplantation and Tete WHITE, Clinical Regeneration in [place], [place] [address] [place] [address] [address] [place] [address] [phone] Social History Tobacco Use Types Packs/Day Years [...] How often do you attend lutheran or faith 1 to 4 times per [...] Nicholas APRN, C.N.P., D.N.P., M.S.N. [address] [place] [address] 55 [phone] (Nicolas wen) 07/31/2022 Lab Laboratory Medicine Tony Rubalcava M. B., ChDaviBDavi, M.D. [address] [place] [address] 55 [phone] (Nicolas wen) 07/31/2022 Lab Laboratory Medicine Tony Rubalcava M. B., ChDaviBDavi, M.D. [address] [place] [address] 55 [phone] (Nicolas wen) 07/31/2022 Office Visit Transplant Tony Rubalcava M.B., ChBurke, MElvia. [address] [place] [address] 55 [phone] (Nicolas wen) 07/31/2022 Appointment Radiology Tony Rubalcava M.B., Muknud Oto[place] [address] [place], [place] 55 [phone] (Nicolas wen) 08/01/2022 Office Visit Transplant Tony Rubalcava M.B., Mukund [place] [address] [place], [place] 55 [phone] (Nicolas wen) 08/01/2022 Clinical Support Transplant Tony Rubalcava M.B., Mukund [place] [address] [place], [place] 55 [phone] (Nicolas wen) documented as of this encounter Results HIV-1/-2 Ag and Ab Screen, Plasma (09/15/2019 9:40 AM RISK AND INSURANCE MANAGER) athologist Signature HIV-1/-2 Ag Negative Negative 09/16/2019 [facility] and Ab Screen, 4:08 PM RISK AND INSURANCE MANAGER P Comment: Negative result does not rule out HIV in fection. If exposure to HIV infection occurred <14 d ays ago, contact the laboratory to request additi on of HIV-1 RNA detection / quantification test (HIV QN). Specimen Anatomical Collection Method Collection Time Receive d Time (Source) Location / / Volume Laterality Blood (Blood, 09/15/2019 9:40 AM 09/16/19 20 3:31 Venous) RISK AND INSURANCE MANAGER PM RISK AND INSURANCE MANAGER Resulting Agency Comment Mailed In Specimen Angelina Gaona APRN, C.N.P., M.S.N. LAB MICROBIOL OGY - BLOOD ORDERABLES Performing Organization Address City/State/ZIP Code Phon e Number [facility] [address] [place], [place] [address] SUPPORT CENTER [facility] [place] [address] Laboratory Medicine and Pathology [address] [place] HLA Class II SAB Antibody Screen (09/15/2019 9:40 AM RISK AND INSURANCE MANAGER) Patholo gist Method Time Signature Class II SAB Positive Not Applicable 09/18/2019 [facility] Overall 8:15 AM RISK AND INSURANCE MANAGER Result Class II SAB 37 09/18/2019 [facility] cPRA 8:15 AM RISK AND INSURANCE MANAGER Comment: ----ADDITIONAL INFORMATION---- This PRA is a [facility] calculated PRA. PRA is based on the antigen frequency of the Tissue Typing patient a nd donor population. ??PRA reflects all antibodie s with a normalized value (MFI) above 300. SAB DRB1 Specificity NONE 09/18/2019 8:15 AM RISK AND INSURANCE MANAGER [facility] SAB [id number] Specificity NONE 09/18/2019 8:15 A M RISK AND INSURANCE MANAGER [facility] SAB DQB1 Specificity see below 09/18/2019 8:15 AM RISK AND INSURANCE MANAGER [facility] Comment: 2[5990] Format: Serologic equivalent/abbreviated specificity [Normalized Value] shown in decreasing o rder. Note: A serologic equivalent/abbreviated specifi city displayed multiple times could indicate different alleles. SAB DPB1 Specificity NONE 09/18/2019 8:15 AM RISK AND INSURANCE MANAGER [facility] Comment: ----ADDITIONAL INFORMATION---- Method: Luminex Specimen Anatomical Collection Method Collection Time Receive d Time (Source) Location / / Volume Laterality Blood (Blood, 09/15/2019 9:40 AM 09/16/19 20 1:17 Venous) RISK AND INSURANCE MANAGER PM RISK AND INSURANCE MANAGER Resulting Agency Comment Mailed In Specimen Angelina Gaona APRN C.N.P., M.S.N. LAB HLA ORDER JS Performing Organization Address City/State/ZIP Code Phon e Number [facility] - [facility] [place], [place] [address] [facility] [place] [address] Laboratories-[facility] [address] HLA Class I SAB Antibody Screen (09/15/2019 9:40 AM RISK AND INSURANCE MANAGER) [facility] Method Time Signature Class I SAB Positive Not Applicable 09/18/2019 [facility] Overall 7:58 AM RISK AND INSURANCE MANAGER Result Class I SAB 79 09/18/2019 [facility] cPRA 7:58 AM RISK AND INSURANCE MANAGER Comment: ----ADDITIONAL INFORMATION---- This PRA is a [facility] Laboratory calculated PRA. PRA is based on the antigen frequency of the Tissue Typing patient a nd donor population. ??PRA reflects all antibodie s with a normalized value (MFI) above 300. SAB A Specificity see below 09/18/2019 7:58 AM RISK AND INSURANCE MANAGER [facility] Comment: 32[4365], 25[7865], 23[3], 24[2086], 24[2034], 31[1978], 30[1558], 30[1434] Format: Serologic equivalent/abbreviated specificity [Normalized Value] shown in decreasing o rder. Note: A serologic equivalent/abbreviated specifi city displayed multiple times could indicate different alleles. SAB B Specificity see below 09/18/2019 7:58 AM RISK AND INSURANCE MANAGER [facility] Comment: 51[8397], 51[5916], 49[5025], 78[3661], 38[3653], 63[3450], 77[3265], 59[3184], 57[3179], 52[3016], 75[2859], 57[2842], 53[2669], 58[2607], 44[1236], 37[1222], 27[1193], 44[942], 47[823], 75[801], 13[713], 71[491] Format: Serologic equivalent/abbreviated specificity [Normalized Value] shown in decreasing o rder. Note: A serologic equivalent/abbreviated specifi city displayed multiple times could indicate different alleles. SAB C Specificity NONE 09/18/2019 7:58 AM RISK AND INSURANCE MANAGER D[facility] Comment: ----ADDITIONAL INFORMATION---- Method: Luminex Specimen Anatomical Collection Method Collection Time Receive d Time (Source) Location / / Volume Laterality Blood (Blood, 09/15/2019 9:40 AM 09/16/19 20 1:17 Venous) RISK AND INSURANCE MANAGER PM RISK AND INSURANCE MANAGER Resulting Agency Comment Mailed In Specimen Angelina Gaona APRN, C.N.P., M.S.N. LAB HLA ORDER JS Performing Organization Address City/State/ZIP Code Phon e Number [facility] - [address] [place], [place] [address] [facility] [address]BB[address] [place] [address] Laboratories-[facility] [address] documented in this encounter Visit Diagnoses Diagnosis Pretransplant Recipient Evaluation Exam - Primary Chronic Kidney Disease documented in this encounter Additional Health Concerns Assessment Noted Time PHQ-9 Depression Total Score: 4 01/30/2019 12:13 PM CD T documented as of this encounter
--- OUTSIDE RECORDS SUMMARY | 2022-05-25 13:17 | XMS_ITS | Encounter Summary ---
:1960 Author Organization [facility] Address [address] [place] [address] Care Team Providers Name Role Phone Unavailable Primary Care Provider Unavailable Encounter Details Date Type Department Care Team Description 09/12/2019 Clinical Communication Division of Nephrology Deanne Fisher and Hypertension in L, HOT WOUND SPRING PRODUCTION SUPERVISOR, C.N.P.[place], [place] M.S.N. 200 [facility] 200 [place] [phone] Social History Tobacco Use Types Packs/Day Years [...] this encounter Miscellaneous Notes Telephone Encounter - Deanne Fisher APRN, C.N.P., M.S.N. - 09/12/2019 3:51 PM CST I was able to review Ms. Wray's urinalysis from earlier today. This is positive for bacteria, nitrates, and is noted to be cloudy. Urine culture is pending. As she is scheduled for stent exchange on September 17, 2019, we will go ahead and initiate antimicrobial therapy with oral ciprofloxacin 500 mg daily. On dialysis days, this should be administered after dialysis has been completed. 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 She has been administered this antibiotic prior to stent exchange before andtolerated it. We will monitor for the culture results and sensitivities. I was able to update our Urology colleagues regarding the results of Ms. Wray's urinalysis and updated them regarding the plan to initiate oral ciprofloxacin. They are agreeable to this plan. Ms. Wray and I were able to discuss the above via phone call. She is agreeable to the plan. I will see her on Sunday at the [facility] Dialysis [facility] during her dialysis and prior to her admission Sunday. ROOM SUPERVISOR documented in this encounter Plan of Treatment Upcoming Encounters Date Type Specialty Care Team Description 06/01/2022 Telemedicine Pharmacy Cristopher Ansarah Yap APRN, C.N.P., [place], M.S.N. [address] [place] [address] 55 [phone] (Wo rk) 07/31/2022 Lab Laboratory Medicine Tony Rubalcava M. B., ChBurek, MDebra [address] [place] [address] 55 [phone] (Nicolas wen) 07/31/2022 Lab Laboratory Medicine Tony Rubalcava M. B., ChBurke, Mukund [address] [place] [address] 55 [phone] (Nicolas wen) 07/31/2022 Office Visit Transplant Tony Rubalcava M.B., Sydnie, MDebra [address] [place] [address] 55 [phone] (Nicolas wen) 07/31/2022 Appointment Radiology Tony Rubalcava M.B., ChBurke, MDebra [address] [place] [address] 55 [phone] (Nicolas wen) 08/01/2022 Office Visit Transplant Tony Rubalcava M.B., ChBurke, MDebra [address] [place] [address] 55 [phone] (Nicolas wen) 08/01/2022 Clinical Support Transplant Tony Rubalcava M.B., ChBurke, MDaviDDavi [address] [place] [address] 55 [phone] (Nicolas wen) documented as of this encounter Visit Diagnoses Not on filedocumented in this encounter Additional Health Concerns Assessment Noted Time PHQ-9 Depression Total Score: 4 01/30/2019 12:13 PM CD T documented as of this encounter
--- OUTSIDE RECORDS SUMMARY | 2022-05-25 13:17 | XMS_ITS | Encounter Summary ---
:1960 Author Organization [facility] Address [address] [place] [address] Care Team Providers Name Role Phone Unavailable Primary Care Provider Unavailable Reason for Visit Reason Comments Med Refill Encounter Details Date Type Department Care Team Description 08/15/2019 Refill Division of Nephrology and Phillip, Joel Bruno APRN, Med Refill Hypertension in [facility] C.N.P ., M.S.N. [place] [address] [facility] [facility] [address] [place] [address] [place] [address] [phone] Social History Tobacco Use Types Packs/Day Years [...] How often do you attend samaritan or mosque 1 to 4 times per [...] this encounter Miscellaneous Notes Telephone Encounter - Bernarda Wayne R.N. - 08/18/2019 3:27 PM CST Warfarin already refilled by Deanne Mojica CNP, on 08/14/19. UTERIZED MILL RECORDER documented in this encounter Plan of Treatment Upcoming Encounters Date Type Specialty Care Team Description 06/01/2022 Telemedicine Pharmacy An Nicholas APRN, C.N.P., D.N.P., M.S.N. [address] [place] [address] 55 [phone] (Nicolas wen) 07/31/2022 Lab Laboratory Medicine Tony Rubalcava M. B., Ch.B., MElvia. [address] [place] [address] 55 [phone] (Nicolas wen) 07/31/2022 Lab Laboratory Medicine Tony Rubalcava M. B., Ch.B., M.Michelle. [address] [place] [address] 55 [phone] (Nicolas wen) 07/31/2022 Office Visit Transplant Tony Rubalcava M.B., Sydnie, Mukund [address] [place] [address] 55 [phone] (Wo rk) 07/31/2022 Appointment Radiology Tony Rubalcava M.B., Sydnie, Mukund [address] [place] [address] 55 [phone] (Wo rk) 08/01/2022 Office Visit Transplant Tony Rubalcava M.B., Sydnie, Mukund [address] [place] [address] 55 [phone] (Wo rk) 08/01/2022 Clinical Support Transplant Tnoy Rubalcava M.B., Sydnie, Mukund [address] [place] [address] 55 [phone] (Wo rk) documented as of this encounter Visit Diagnoses Not on filedocumented in this encounter Additional Health Concerns Assessment Noted Time PHQ-9 Depression Total Score: 4 01/30/2019 12:13 PM CD T documented as of this encounter
--- OUTSIDE RECORDS SUMMARY | 2022-05-25 13:17 | XMS_ITS | Encounter Summary ---
:1960 Author Organization [facility] Address [address] [place] [address] Care Team Providers Name Role Phone Unavailable Primary Care Provider Unavailable Encounter Details Date Type Department Care Team Description 08/14/2019 Refill Division of Nephrology and Phillip, Joel Bruno APRN, Hypertension in [place], C.N.P ., M.S.N. [place] [address] [address] [facility] 200 [place] [address] [place] [address] [phone] Social History Tobacco Use Types Packs/Day Years [...] How often do you attend zoroastrian or hoahaoism 1 to 4 times per [...] Nicholas APRN C.N.P., D.N.P., M.S.N. [address] [place] [address] 55 [phone] (Nicolas rk) 07/31/2022 Lab Laboratory Medicine Tony Rubalcava M. B., ChBurke, MDebra [address] [place] [address] 55 [phone] (Wo rk) 07/31/2022 Lab Laboratory Medicine Tony Rubalcava M. B., ChBurke, MDebra [address] [place] [address] 55 [phone] (Wo rk) 07/31/2022 Office Visit Transplant Tony Rubalcava M.B., Sydnie, MDebra [address] [place] [address] 55 [phone] (Wo rk) 07/31/2022 Appointment Radiology Tony Rubalcava M.B., Mukund Otoole [address] [place] [address] 55 [phone] (Wo behzad) 08/01/2022 Office Visit Transplant Tony Rubalcava M.B., Mukund [place] [address] [place] [address] 55 [phone] (Nicolas wen) 08/01/2022 Clinical Support Transplant Tony Rubalcava M.B., Sydnie, Mukund [address] [place] [address] 55 [phone] (Nicolas wen) documented as of this encounter Visit Diagnoses Not on filedocumented in this encounter Additional Health Concerns Assessment Noted Time PHQ-9 Depression Total Score: 4 01/30/2019 12:13 PM CD T documented as of this encounter
--- OUTSIDE RECORDS SUMMARY | 2022-05-25 13:17 | XMS_ITS | Encounter Summary ---
:1960 Author Organization [facility] Address [address] [place] [address] Care Team Providers Name Role Phone Unavailable Primary Care Provider Unavailable Encounter Details Date Type Department Care Team Description 09/04/2019 Hospital Encounter Department of Pompeian, Pretrans plant Recipient Evaluation Exam; Laboratory Medicine Angelina Belle, Chronic Kidney Disease and Pathology, CHRISTOPHER, C.N.[facility], [address] [place] [address] [place] [phone] [place], [place] [phone] (Work) [phone] Social History Tobacco Use Types Packs/Day Years [...] How often do you attend restorationism or confucianist 1 to 4 times per [...] chewable with meals. Lunch tablet and dinner. docusate sodium Take 100 mg by mouth [...] 8.6-50 mg per tablet needed for constipation. tacrolimus (PROGRAF) 1 Take 2 capsules (2 [...] mg on Tuesdays, , Saturdays and Sundays. documented as of this encounter Plan of Treatment Upcoming Encounters Date Type Specialty Care Team Description 06/01/2022 Telemedicine Pharmacy An Nicholas APRN, C.N.P., D.N.P., M.S.N. [address] [place] [address] [phone] (Nicolas wen) 07/31/2022 Lab Laboratory Medicine Tony Rubalcava M. B., Sydnie, MDebra [address] [place] [address] [phone] (Nicolas wen) 07/31/2022 Lab Laboratory Medicine Tony Rubalcava M. B., ChBurke, Mukund [address] [place] [address] [phone] (Nicolas wen) 07/31/2022 Office Visit Transplant Tony Rubalcava M.B., Sydnie, Mukund [address] [place] [address] [phone] (Nicolas wen) 07/31/2022 Appointment Radiology Tony Rubalcava M.B., Sydnie, MDebra [address] [place] [address] [phone] (Nicolas wen) 08/01/2022 Office Visit Transplant Tony Rubalcava M.B., Sydnie, Mukund [address] [place] [address] [phone] (Nicolas wen) 08/01/2022 Clinical Support Transplant Tony Rubalcava M.B., Sydnie, MDebra [address] [place] [address] [phone] (Nicolas wen) documented as of this encounter Procedures Procedure Name Priority Date/Time Associated Diagnosis Comme nts HIV-1/-2 AG AND AB Routine 09/15/2019 9:40 AM Pretransplant Re sults for this SCREEN, PLASMA RADIOLOGIST DIAGNOSTIC Recipient Evaluation proce dure are in Exam the results Chronic Kidney Disease secti on. HLA CLASS II SAB Routine 09/15/2019 9:40 AM Pretransplant Resu lts for this ANTIBODY SCREEN RADIOLOGIST DIAGNOSTIC Recipient Evaluation proc edure are in Exam the results Chronic Kidney Disease secti on. HLA CLASS I SAB Routine 09/15/2019 9:40 AM Pretransplant Resul ts for this ANTIBODY SCREEN RADIOLOGIST DIAGNOSTIC Recipient Evaluation proc edure are in Exam the results Chronic Kidney Disease secti on. documented in this encounter Results HIV-1/-2 Ag and Ab Screen, Plasma (09/15/2019 9:40 AM RADIOLOGIST DIAGNOSTIC) P athologist Signature HIV-1/-2 Ag Negative Negative 09/16/2019 [facility] and Ab Screen, 4:08 PM RADIOLOGIST DIAGNOSTIC P Comment: Negative result does not rule out HIV in fection. If exposure to HIV infection occurred <14 d ays ago, contact the laboratory to request additi on of HIV-1 RNA detection / quantification test (HIV QN). Specimen Anatomical Collection Method Collection Time Receive d Time (Source) Location / / Volume Laterality Blood (Blood, 09/15/2019 9:40 AM 09/16/19 20 3:31 Venous) RADIOLOGIST DIAGNOSTIC PM RADIOLOGIST DIAGNOSTIC Resulting Agency Comment Mailed In Specimen Angelina Gaona APRN C.N.P., M.S.N. LAB MICROBIOL OGY - BLOOD ORDERABLES Performing Organization Address City/State/ZIP Code Phon e Number [facility] [address] [place], [place] [address] SUPPORT [facility] [place] [address] Laboratory Medicine and Pathology [address] [place] HLA Class II SAB Antibody Screen (09/15/2019 9:40 AM RADIOLOGIST DIAGNOSTIC) [facility] Method Time Signature Class II SAB Positive Not Applicable 09/18/2019 [facility] Overall 8:15 AM RADIOLOGIST DIAGNOSTIC Result Class II SAB 37 09/18/2019 [facility] cPRA 8:15 AM RADIOLOGIST DIAGNOSTIC Comment: ----ADDITIONAL INFORMATION---- This PRA is a [facility] calculated PRA. PRA is based on the antigen frequency of the Tissue Typing patient a nd donor population. ??PRA reflects all antibodie s with a normalized value (MFI) above 300. SAB DRB1 Specificity NONE 09/18/2019 8:15 AM RADIOLOGIST DIAGNOSTIC [facility] SAB [id number] Specificity NONE 09/18/2019 8:15 A M RADIOLOGIST DIAGNOSTIC [facility] SAB DQB1 Specificity see below 09/18/2019 8:15 AM RADIOLOGIST DIAGNOSTIC [facility] Comment: 2[6485] Format: Serologic equivalent/abbreviated specificity [Normalized Value] shown in decreasing o rder. Note: A serologic equivalent/abbreviated specifi city displayed multiple times could indicate different alleles. SAB DPB1 Specificity NONE 09/18/2019 8:15 AM RADIOLOGIST DIAGNOSTIC [facility] Comment: ----ADDITIONAL INFORMATION---- Method: Luminex Specimen Anatomical Collection Method Collection Time Receive d Time (Source) Location / / Volume Laterality Blood (Blood, 09/15/2019 9:40 AM 09/16/19 20 1:17 Venous) RADIOLOGIST DIAGNOSTIC PM RADIOLOGIST DIAGNOSTIC Resulting Agency Comment Mailed In Specimen Angelina Gaona APRN C.N.Nela., M.S.N. LAB HLA ORDER JS Performing Organization Address City/State/ZIP Code Phon e Number [facility] - [address] [place], [place] [address] [facility] [place] [place] [address] [facility] [address] HLA Class I SAB Antibody Screen (09/15/2019 9:40 AM RADIOLOGIST DIAGNOSTIC) [facility] Method Time Signature Class I SAB Positive Not Applicable 09/18/2019 [facility] Overall 7:58 AM RADIOLOGIST DIAGNOSTIC Result Class I SAB 79 09/18/2019 [facility] cPRA 7:58 AM RADIOLOGIST DIAGNOSTIC Comment: ----ADDITIONAL INFORMATION---- This PRA is a [facility] calculated PRA. PRA is based on the antigen frequency of the Tissue Typing patient a nd donor population. ??PRA reflects all antibodie s with a normalized value (MFI) above 300. SAB A Specificity see below 09/18/2019 7:58 AM RADIOLOGIST DIAGNOSTIC [facility] Comment: 32[4165], 25[2785], 23[2483], 24[7], 24[2034], 31[1977], 30[1558], 30[1434] Format: Serologic equivalent/abbreviated specificity [Normalized Value] shown in decreasing o rder. Note: A serologic equivalent/abbreviated specifi city displayed multiple times could indicate different alleles. SAB B Specificity see below 09/18/2019 7:58 AM RADIOLOGIST DIAGNOSTIC D[facility] Comment: 51[7797], 51[5916], 49[5025], 78[3661], 38[3653], 63[3450], 77[3265], 59[3184], 57[3179], 52[3016], 75[2859], 57[2842], 53[2669], 58[2607], 44[1236], 37[1222], 27[1193], 44[942], 47[823], 75[801], 13[713], 71[491] Format: Serologic equivalent/abbreviated specificity [Normalized Value] shown in decreasing o rder. Note: A serologic equivalent/abbreviated specifi city displayed multiple times could indicate different alleles. SAB C Specificity NONE 09/18/2019 7:58 AM RADIOLOGIST DIAGNOSTIC [facility] Comment: ----ADDITIONAL INFORMATION---- Method: Luminex Specimen Anatomical Collection Method Collection Time Receive d Time (Source) Location / / Volume Laterality Blood (Blood, 09/15/2019 9:40 AM 09/16/19 20 1:17 Venous) RADIOLOGIST DIAGNOSTIC PM RADIOLOGIST DIAGNOSTIC Resulting Agency Comment Mailed In Specimen Angelina Gaona APRN C.N.P., M.S.N. LAB HLA ORDER JS Performing Organization Address City/State/ZIP Code Phon e Number [facility] - [address] [place], [place] [address] [facility] [place] [address] [place] [address] [facility] [address] documented in this encounter Visit Diagnoses Diagnosis Pretransplant Recipient Evaluation Exam Chronic Kidney Disease documented in this encounter Additional Health Concerns Assessment Noted Time PHQ-9 Depression Total Score: 4 01/30/2019 12:13 PM CD T documented as of this encounter
--- OUTSIDE RECORDS SUMMARY | 2022-05-25 13:17 | XMS_ITS | Encounter Summary ---
:1960 Author Organization [facility] Address [address] [place] [address] Care Team Providers Name Role Phone Unavailable Primary Care Provider Unavailable Encounter Details Date Type Department Care Team Description 08/25/2019 Hospital Encounter Department of [place]ho[place]a Tra nsplant Renal Laboratory Medicine AIRFIELD ENGINEER OFFICER, C.N.P., (HCC) and Pathology, [place] [address] [place] [phone] [place] [address] [place], [place] (Work) [phone] Social History Tobacco Use Types Packs/Day Years [...] How often do you attend taoist or restoration 1 to 4 times per [...] Do not break, cut, or open capsules. nebivolol (BYSTOLIC) 10 Take 1 tablet (10 mg 90 tablet 3 09/02/2019 mg tabletIndications: total) by mouth Transplant Renal (HCC) daily. nicotine (NICODERM CQ) Apply 14 mg patch [...] Nicholas APRN, C.N.P., D.N.P., M.S.N. [address] [place] [address] [phone] (Nicolas wen) 07/31/2022 Lab Laboratory Medicine Tony Rubalcava M. B., Sydnie, Mukund [address] [place] [address] [phone] (Nicolas wen) 07/31/2022 Lab Laboratory Medicine Tony Rubalcava M. B., Sydnie, Mukund [address] [place] [address] [phone] (Nicolas wen) 07/31/2022 Office Visit Transplant Tony Rubalcava M.B., Sydnie, Mukund [address] [place] [address] [phone] (Nicolas wen) 07/31/2022 Appointment Radiology Tony Rubalcava M.B., Sydnie, Mukund [address] [place] [address] [phone] (Nicolas wen) 08/01/2022 Office Visit Transplant Tony Rubalcava M.B., Sydnie, Mukund [address] [place] [address] [phone] (Nicolas wen) 08/01/2022 Clinical Support Transplant Tony Rubalcava M.B., Sydnie, MDebra [address] [place] [address] [phone] (Nicolas wen) documented as of this encounter Procedures Procedure Name Priority Date/Time Associated Comments Diagnosis TACROLIMUS LEVEL, B Routine 09/03/2019 5:50 AM Transplant Jessica l Results for this COMPENSATION COORDINATOR (HCC) procedure are i n the results section. documented in this encounter Results Tacrolimus, B (09/03/2019 5:50 AM COMPENSATION COORDINATOR) P athologist Signature Tacrolimus, B 9.3 5.0-15.0 09/05/2019 [facility] (Trough) 4:51 PM COMPENSATION COORDINATOR ng/mL Comment: ----ADDITIONAL INFORMATION---- Target steady-state trough concentration s vary depending on the type of transplant, concomitant immunosuppressio n, clinical/institutional protocols, and time post-transplant. Results should be interpreted in conjunction with this clinical information and any physic al signs/symptoms of rejection/toxicity. Testing performed by Liquid Chromatograp hy-Tandem Mass Spectrometry (LC-MS/MS). This test was developed and its performa nce characteristics determined by [facility] in a manner consistent with CLIA requirements. This test has not been cleared or approved by the [place] d and Drug Administration. Specimen Anatomical Collection Method Collection Time Receive d Time (Source) Location / / Volume Laterality Blood (Blood, 09/03/2019 5:50 AM 09/05/19 20 1:33 Venous) COMPENSATION COORDINATOR PM COMPENSATION COORDINATOR Resulting Agency Comment Mailed In Specimen Alexa Adan APRN, C.N.P., D.N.P. LAB BLOOD NON ADD -ON Performing Organization Address City/State/ZIP Code Phon e Number [facility] [address] [place] [address] SUPPORT CENTER [facility] [place] [address] Laboratory Medicine and Pathology [address] [place] documented in this encounter Visit Diagnoses Diagnosis Transplant Renal (HCC) documented in this encounter Additional Health Concerns Assessment Noted Time PHQ-9 Depression Total Score: 4 01/30/2019 12:13 PM CD T documented as of this encounter
--- OUTSIDE RECORDS SUMMARY | 2022-05-25 13:17 | XMS_ITS | Encounter Summary ---
:1960 Author Organization [facility] Address [address] [place] [address] Care Team Providers Name Role Phone Unavailable Primary Care Provider Unavailable Encounter Details Date Type Department Care Team Description 08/04/2019 Orders Only Division of Nephrology and Neymar Martínez Hypertension in [place], ., D.O. [place] [address] [facility] 200 [place] [phone] (Wo rk) Social History Tobacco Use Types [...] How often do you attend religious or hoahaoism 1 to 4 times per [...] An Nicholas APRN C.N.P., D.N.P., M.S.N. [address] [place] [address] [phone] (Wo rk) 07/31/2022 Lab Laboratory Medicine Tony Rubalcava M. B., Sydnie, MDebra [address] [place] [address] [phone] (Wo rk) 07/31/2022 Lab Laboratory Medicine Tony Rubalcava M. B., ChBurke, MDebra [address] [place] [address] 55 [phone] (Wo rk) 07/31/2022 Office Visit Transplant Tony Rubalcava M.B., Sydnie, MDebra [address] [place] [address] [phone] (Wo rk) 07/31/2022 Appointment Radiology Tony Rubalcava M.B., ChBurke, Mukund [address] [place] [address] [phone] (Wo rk) 08/01/2022 Office Visit Transplant Tony Rubalcava M.B., [place] [address] [place] [address] [phone] (Wo rk) 08/01/2022 Clinical Support Transplant Tony Rubalcava M.B., Mukund [place] [address] [place] [address] [phone] (Wo rk) documented as of this encounter Visit Diagnoses Not on filedocumented in this encounter Additional Health Concerns Assessment Noted Time PHQ-9 Depression Total Score: 4 01/30/2019 12:13 PM CD T documented as of this encounter
--- OUTSIDE RECORDS SUMMARY | 2022-05-25 13:17 | XMS_ITS | Encounter Summary ---
:1960 Author Organization [facility] Address [address] [place] [address] Care Team Providers Name Role Phone Unavailable Primary Care Provider Unavailable Encounter Details Date Type Department Care Team Description 09/10/2019 Clinical Communication Division of Nephrology Deanne Fisher and Hypertension in [place], POLEYARD SUPERVISOR, C.N.P.[place], [place] M.S.N. [address] [facility] [address] [place] [phone] Social History Tobacco Use Types Packs/Day Years [...] How often do you attend methodist or hindu 1 to 4 times per [...] encounter Miscellaneous Notes Telephone Encounter - Deanne Fisher, CHRISTOPHER, C.N.P., M.S.N. 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 Wray is being prepared for ureteral stent exchange and tunneled dialysis catheter removal. She requires heparin bridging for these procedures to occur. Please see the note from September 01, [address] Steve Martínez regarding details of this. I was able to confirm with our Admission Transfer Center today that Ms. Wray has been accepted for planned direct admission on September 15 at about noon. This will be after her dialysis session occurs that morning at the [facility] outpatient dialysis unit. I have also been able to speak with the Chief Urology service regarding the need for stent exchange.They are going to go ahead and list Ms. Wray for stent exchange at [facility] on September 17. While they generally do not require holding of warfarin and heparin bridging for the stent exchange, Ms. Wray reports that she had bleeding for 2-3 days with her previous stent exchanges and this was prior to her being maintained on warfarin. We believe it safest for her to undergo stent exchange while off anticoagulation due to history of bleeding even without anticoagulation. Ms. Wray will start holding her warfarin on September 13, in order to allow it to driftdown slowly prior to admission, particularly since her INRs have been on this higher side lately. OnSeptember 15, she will present for admission. At the time of admission to one of our Hospital InternalMedicine Services, she requires: -- Initiation of IV unfractionated heparin bridging -- Inpatient Nephrology consult -- Coordination with Interventional Radiology for removal of her right EJ tunneled hemodialysis catheter. It is preferable that her INR be < 2 for this to occur. An order for catheter removal will be needed when her INR has reached an acceptable range for removal. -- Per discussion with Urology today, ureter stent exchange will be scheduled by Urology on September 17 at [facility]. They have told me today an inpatient Urology consultation is not required for this, but we need to ensure this procedure is performed while Ms. Wray is being bridged with the heparin in order to limit the risk of bleeding from the procedure. -- Urinalysis and culture have been ordered for Ms. Wray to complete this week in order to ensure she does not have infection present with her upcoming stent exchange. She will do these at the [facility] lab on September 12 after she leaves dialysis. ING EQUIPMENT OPERATOR documented in this encounter Plan of Treatment Upcoming Encounters Date Type Specialty Care Team Description 06/01/2022 Telemedicine Pharmacy An Nicholas APRN, C.NDaviPDavi, D.N.P., M.S.N. [address] [place] [address] [phone] (Wo rk) 07/31/2022 Lab Laboratory Medicine Tony Rubalcava M. B., Ch.BDavi, M.Whitney [address] [place] [address] [phone] (Wo rk) 07/31/2022 Lab Laboratory Medicine Tony Rubalcava M. B., Sydnie, Mukund [address] [place] [address] [phone] (Wo rk) 07/31/2022 Office Visit Transplant Tony Rubalcava M.B., [place] [address] [place] [address] [phone] (Wo rk) 07/31/2022 Appointment Radiology Tony Rubalcava M.B., [place]und [place] [address] [place] [address] [phone] (Wo rk) 08/01/2022 Office Visit Transplant Tony Rubalcava M.B., Sydnie, Mukund [address] [place] [address] [phone] (Wo rk) 08/01/2022 Clinical Support Transplant Tony Rubalcava M.B., Sydnie, Mukund [address] [place] [address] [phone] (Wo rk) documented as of this encounter Results (ABNORMAL) Bacterial Culture, Aerobic + Susc, Urine (09/12/2019 10:18 AM LOGGING EQUIPMENT OPERATOR) [facility] Time Signature Urine Culture Mixed 09/13/2019 [facility] shakir. (A) 9:53 AM LOGGING EQUIPMENT OPERATOR Specimen Anatomical Collection Method Collection Time Receive d Time (Source) Location / / Volume Laterality Urine (Urine, 09/12/2019 10:18 09/12/2019 2:12 Midstream) AM LOGGING EQUIPMENT OPERATOR PM LOGGING EQUIPMENT OPERATOR Comment: Specimen Source Site: Urine Deanne Fisher APRN, C.N.P., M.S.N. LAB MICROBIOLOG Y - GENERAL ORDERABLES Performing Organization Address City/State/ZIP Code Phon e Number [facility]- [address] [place] [address] [facility] [address] System in [place] [address] [place] [address] (ABNORMAL) Urinalysis with Microscopic: Urine, Clean Catch (09/12/2019 10:18 AM LOGGING EQUIPMENT OPERATOR) P athologist Signature Source Midstream 09/12/2019 FB60 10:21 AM LOGGING EQUIPMENT OPERATOR Clarity Cloudy (A) Clear 09/12/2019 FB60 10:21 AM LOGGING EQUIPMENT OPERATOR Color Yellow 09/12/2019 FB60 10:21 AM LOGGING EQUIPMENT OPERATOR Comment: ----REFERENCE VALUE---- Colorless Yellow Claudette Blood Moderate (A) Negative 09/12/2019 10:21 AM LOGGING EQUIPMENT OPERATOR FB6 0 Nitrite Positive (A) Negative 09/12/2019 10:21 AM LOGGING EQUIPMENT OPERATOR FB6 0 Leukocyte Esterase Large (A) Negative 09/12/2019 10:[address] FB60 Protein >=300 (A) mg/dL 09/12/2019 10:21 AM LOGGING EQUIPMENT OPERATOR FB60 Comment: ----REFERENCE VALUE---- Negative Trace Glucose Negative Negative mg/dL 09/12/2019 10:21 AM LOGGING EQUIPMENT OPERATOR F B60 Ketones, QI(U) Negative Negative mg/dL 09/12/2019 10:21 AM LOGGING EQUIPMENT OPERATOR FB60 Bilirubin Negative Negative 09/12/2019 10:21 AM LOGGING EQUIPMENT OPERATOR FB60 pH 7.5 5.0 - 8.0 09/12/2019 10:21 AM LOGGING EQUIPMENT OPERATOR FB60 Specific Lyman 1.020 1.001 - 1.035 09/12/2019 10:21 AM LOGGING EQUIPMENT OPERATOR FB60 Urobilinogen 0.2 0.2 - 1.0 mg/dL 09/12/2019 10:[address] FB60 White Blood Cells 4-10 /hpf 09/12/2019 10:33 AM CS T FB60 Comment: ----REFERENCE VALUE---- Males: 0-3 Females: 0-10 Unknown: 0-10 Red Blood Cells 3-10 (A) 0 - 2 /hpf 09/12/2019 10:33 AM LOGGING EQUIPMENT OPERATOR FB60 Bacteria Present (A) None Seen 09/12/2019 10:33 AM LOGGING EQUIPMENT OPERATOR FB60 Specimen Anatomical Collection Method Collection Time Receive d Time (Source) Location / / Volume Laterality Urine (Urine, 09/12/2019 10:18 09/12/2019 Clean Catch) AM LOGGING EQUIPMENT OPERATOR 10:18 AM LOGGING EQUIPMENT OPERATOR Deanne Fisher APRN, C.N.P., M.S.N. LAB URINE ORDER JS Performing Organization Address City/State/ZIP Code Phon e Number [facility]- [address] LAB FB60 [place] [address] System in [place] [address] documented in this encounter Visit Diagnoses Diagnosis Obstruction Ureter - Primary documented in this encounter Additional Health Concerns Assessment Noted Time PHQ-9 Depression Total Score: 4 01/30/2019 12:13 PM CD T documented as of this encounter
--- OUTSIDE RECORDS SUMMARY | 2022-05-25 13:17 | XMS_ITS | Encounter Summary ---
:1960 Author Organization [facility] Address [address] [place] [address] Care Team Providers Name Role Phone Unavailable Primary Care Provider Unavailable Encounter Details Date Type Department Care Team Description 09/01/2019 Documentation Division of Nephrology and Josr Martínez Hypertension in [place], ., D.O. [place] 200 [facility] [address] [place] [phone] (Wo rk) Social History Tobacco Use Types [...] How often do you attend restorationist or church 1 to 4 times per [...] Progress Notes Steve Martínez Jr., D.O. - 09/01/2019 1:04 PM CST Dialysis rounding note: Please see care everywhere for a detailed [facility] documentation of her visit. We have a complex situation to solve. She is on mandatory Warfarin for her clotting tendency (3 full thrombophilia evals., all negative) with clotted graft X 2 and prior occlusion of her LUE AVF. She has had high INRs recently-- 4.5 last . Her current dose of warfarin is 5 mg per day with 7.5 mg on . She requires every 3-4 monthly replacement of her Renal transplant - bladder ureteral stent. She hasreasonable residual transplant function (approx. 2-3 cc/min) . She also has a R EJ TDC which was needed as her graft was maturing. We have been successfully cannulating this graft for about 2 weeks. We will need her to have bridging therapy to allow removal of the CVC and to allow the transplant stent to be repaced. We will need to gain approval from Urology and IR- and set a date for admission, proceeded by holding the coumadin for 3 days. Impression: #1 ESRD #2 Transplant ureteropelvic obstruction requiring stenting #3 Hypercoagulable state #4 Active on the transplant wait list - will work on [employer] orchestration with Urology and IR IT AUTHORIZER documented in this encounter Plan of Treatment Upcoming Encounters Date Type Specialty Care Team Description 06/01/2022 Telemedicine Pharmacy An Nicholas APRN, C.NDoc, JonniePDavi, M.S.N. [address] [place] [address] [phone] (Wo rk) 07/31/2022 Lab Laboratory Medicine Tony Rubalcava M. B., ChBurke, MDebra [address] [place] [address] [phone] (Wo rk) 07/31/2022 Lab Laboratory Medicine Tony Rubalcava M. B., ChBurke, Mukund [address] [place] [address] [phone] (Wo rk) 07/31/2022 Office Visit Transplant Tony Rubalcava M.B., ChBurke, MDebra [address] [place] [address] [phone] (Wo rk) 07/31/2022 Appointment Radiology Tony Rubalcava M.B., ChBurke, MDebra [address] [place] [address] [phone] (Wo rk) 08/01/2022 Office Visit Transplant Tony Rubalcava M.B., ChBurke, MDebra [address] [place] [address] [phone] (Nicolas wen) 08/01/2022 Clinical Support Transplant Tony Rubalcava M.B., ChBurke, MDebra [address] [place] [address] [phone] (Nicolas wen) documented as of this encounter Visit Diagnoses Not on filedocumented in this encounter Additional Health Concerns Assessment Noted Time PHQ-9 Depression Total Score: 4 01/30/2019 12:13 PM CD T documented as of this encounter
--- OUTSIDE RECORDS SUMMARY | 2022-05-25 13:17 | XMS_ITS | Encounter Summary ---
:1960 Author Organization [facility] Address [address] [place] [phone] Care Team Providers Name Role Phone Unavailable Primary Care Provider Unavailable Reason for Visit Outpatient (Routine) - Closed Specialty Diagnoses / Procedures Referred By Contact Refer red To Contact Nephrology and Diagnoses Chronic Failure Renal End Stage Renal Disease Dialysis Dependent (HCC) [facility] [address] [place] [phone] Referral ID Status Reason Start Date Expiration Date Visits Requ ested Visits Authorized [id number] Closed 05/07/2019 05/06/2020 1 1 Encounter Details Date Type Department Care Team Description 07/15/2019 Office Visit Division of Nephrology Sam Yu, M.B.B.S. [address] [place] [phone] Chronic Failure Renal and Hypertension in Debora Regalado R.N. [address] [place] [phone] [facility] [place], [place] [facility] [address] [facility] Dependent (HCC) [place] [phone] Social History Tobacco Use Types Packs/Day Years [...] How often do you attend christianity or orthodoxy 1 to 4 times per [...] as of this encounter Progress Notes Debora Regalado, RDaviN. - 07/15/2019 2:[address] Yu, [phone] CHIEF COMPLAINT/PURPOSE OF VISIT REASON FOR REFERRAL: 6 week follow-up post declot and angioplasty HISTORY OF PRESENT ILLNESS ACCESS: PTFE Graft Date placed - 05/06/19 Provider - Dr. Yu LOCATION OF ACCESS: Right Upper Arm PTFE graft PERTINENT PROCEDURAL HISTORY: Patient returning for 6 week follow up of her right PTFE graft. Patient dialyzes at the [place] [facility] unit on a schedule. Please see today's ultrasound in [facility]: FLOW VOLUMES: 07/15/19 = 1371 mL/m PHYSICAL EXAMINATION Arteriovenous fistula: Pulses: radial + ulnar + Strengths - strong equal sergio Capillary refill - brisk Color - wnl Temp - warm sergio Thrill - present Bruit - present, no whistle noted Fistula measurements on SonoSite: low - 0.53 cm in diameter and 0.31 cm deep low-mid - 0.56 cm in diameter and 0.24 cm deep mid - 0.57 cm in diameter and 0.19 cm deep distally - 0.55 cm in diameter and 0.24 cm deep Incision: Healing - has healed nicely Pain - denies Swelling - none Exercises - states she is doing the hand exercises IMPRESSION/REPORT/PLAN The fistula is patent with a good thrill and bruit. She has no hand complaints. The incision has healed nicely. I can palpate her pulses. Good capillary refill with equal strengths. I encouraged her tokeep performing her hand exercises. PTFE Graft is ready to be used, dialysis unit notified. 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 [address] [place] [address] [phone] (Wo rk) 07/31/2022 Lab Laboratory Medicine Tony Rubalcava M. B., Ch.Maurice, M.D. [address] [place] [address] [phone] (Wo rk) 07/31/2022 Lab Laboratory Medicine Tony Rubalcava M. B., ChBurke, MDebra [address] [place] [address] [phone] (Wo rk) 07/31/2022 Office Visit Transplant Tony Rubaclava M.B., Mukund [place] [address] [place] [address] [phone] (Wo rk) 07/31/2022 Appointment Radiology Tony Rubalcava M.B., [place]und [place] [address] [place] [address] [phone] (Nicolas wen) 08/01/2022 Office Visit Transplant Tony Rubalcava M.B., [place]und [place] [address] [place] [address] [phone] (Nicolas wen) 08/01/2022 Clinical Support Transplant Tony Rubalcava M.B., Sydnie, Mukund [address] [place] [address] [phone] (Nicolas wen) documented as of this encounter Visit Diagnoses Diagnosis Chronic Failure Renal End Stage Renal Di sease Dialysis Dependent (HCC) documented in this encounter Additional Health Concerns Assessment Noted Time PHQ-9 Depression Total Score: 4 01/30/2019 12:13 PM CD T documented as of this encounter
--- OUTSIDE RECORDS SUMMARY | 2022-05-25 13:17 | XMS_ITS | Encounter Summary ---
:1960 Author Organization [facility] Er Address [address] [place] [address] Care Team Providers Name Role Phone Unavailable Primary Care Provider Unavailable Encounter Details Date Type Department Care Team Description 09/16/2019 Surgery RST ROMB MAIN OR Jakub Ray, EXCHANGE URETERAL STENT. [address] [place] [address] [place]und, [place] [address] Social History Tobacco Use Types Packs/Day Years [...] How often do you attend yazidi or restoration 1 to 4 times per [...] Sign Reading Time Taken Comments Blood Pressure 127/70 09/16/2019 12:56 PM JOB SUPERINTENDENT Pulse 66 09/16/2019 12:56 PM JOB SUPERINTENDENT Temperature 36.5 ??C (97.7 ??F) 09/16/2019 12:56 PM JOB SUPERINTENDENT Respiratory Rate 18 09/16/2019 12:56 PM JOB SUPERINTENDENT Oxygen Saturation 96% 09/16/2019 12:56 PM JOB SUPERINTENDENT Inhaled Oxygen Concentration - - Weight 94.8 kg (208 lb 15.9 oz) 09/16/2019 8:38 AM JOB SUPERINTENDENT Height 162.6 cm (5' 4) 09/15/2019 1:40 PM JOB SUPERINTENDENT Body Mass Index 35.57 09/15/2019 1:40 PM JOB SUPERINTENDENT documented in this encounter Discharge Summaries Evelia Perkins, C.N.P., R.N. - 09/19/2019 7:49 AM CST DISCHARGE SUMMARY Discharge Provider: Kay Ruiz M.D. Primary Care Providers: Elsewhere, Pcp (General) [address] [place] [address] Discharge Provider Team: [facility] Internal Medicine ([facility]) [facility] Medicine 7 ([facility]) Primary Care Provider Phone Number: None [...] Ms. Shabnam Wray today and provided counseling [id number]-[id number] at bedside. I personally spent over half of a total 40 minutes in counseling and discussion with the patient and in coordination of care as described above to facilitate the hospital discharge. Discharge instructions wer e provided to the patient and caregiver(s). SUPERINTENDENT documented in this encounter Discharge Instructions Discharge InstructionsRadha Roman - 09/15/2019 3:09 PM CST You were discharged from the [facility] Medicine 7 ([facility]) Service. Please identify this service name if you call with questions after hospitalization. SUPERINTENDENT documented in this encounter Medications at Time [...] dialysis is planned for Sunday at the [facility] outpatient dialysis unit. Continued recommendations: -- Regular diet is ok as Ms. Wray follows this in the outpatient setting and labs are generallyquite good. -- Continue oral Dialyvite, one tablet each evening -- Hectorol will not be administered in the inpatient setting due to not being available on the [facility] formulary. This will be resumed once Ms. [...] be effective. -- Prior to admission, the [facility] dialysis unit marked a small area [...] or concerns, please page the Nephrology A BLOOD BANK TECHNOLOGIST/PA pager ([phone]). SUPERINTENDENT Evelia Perkins C.N.P., R.N. - 09/18/2019 3:16 PM CST SUBJECTIVE [...] Dependent (HCC) #7 Thombosis Arteriovenous Fistula Initial (HCC) #8 Ureteral Stent Exchange #9 Infection Urinary [...] prophylaxis: therapeutic anticoagulation Disposition: Home, potentially 09/19 SUPERINTENDENT Deanne Fisher APRN C.N.P., M.S.N. - 09/18/2019 [...] due to not being available on the [facility] formulary. This will be resumed once Ms. [...] be effective. -- Prior to admission, the [facility] dialysis unit marked a small area [...] goals with Dr. Martínez, Ms. Wray's outpatient Validation Software Facilitator, since Ms. Wray is only on the warfarin for graft patency. We are ok with her discharging if her INR reaches 1.8 and with ongoing follow up at the anticoagulation clinic outpatient. Thank you for the opportunity to participate in 's care. For questions or concerns, please page the Nephrology A BLOOD BANK TECHNOLOGIST/PA pager ([phone]). SUPERINTENDENT Janina Harrell, Pharm.D., R.Ph. - 09/18/2019 8:41 [...] will give 6mg of warfarin tonight. Janina Harrell Pharm.D., R.Ph. SUPERINTENDENT Ligia Waldron PharmDaviDDavi, R.Ph. - 09/17/2019 2:38 [...] mg oral Daily at bedtime 09/15/19 1343 09/20/19 205 Potentiating (From admission, onward) None Enzyme Inducers [...] repeat warfarin 7.5 mg dose this evening. Ramona Waldron Pharm.D., R.Ph. [phone] SUPERINTENDENT Evelia Perkins C.NDaviP., R.N. - 09/17/2019 1:57 PM CST [...] Anticoagulant Therapy #3 Hyperlipidemia #4 Transplant Renal ([facility]) #5 Hypertension And Chronic Kidney Disease Stage 1 To 4 #6 Chronic Failure Renal End Stage Renal Disease Dialysis Dependent ([facility]) #7 Thombosis Arteriovenous Fistula Initial ([facility]) #8 Ureteral Stent Exchange #9 [...] PIV VTE prophylaxis: therapeutic anticoagulation Disposition: Home SUPERINTENDENT Deanne Fisher APRN, C.NDoc, M.S.N. - 09/17/2019 12:45 PM CST SUBJECTIVE [...] due to not being available on the [facility] formulary. This will be resumed once Ms. Wray returns to the outpatient dialysis setting. -- Current phosphorus level does not warrant a phosphorus binder. -- Continue oral Bystolic 10 mg daily -- Please continue to have EMLA cream available to apply to Ms. Halls dialysis graft 1 hour prior to needle cannulation. -- Prior to admission, the [facility] dialysis unit marked a small area [...] you for the opportunity to participate in s care. For questions or concerns, please page the Nephrology A BLOOD BANK TECHNOLOGIST/PA pager ([phone]). SUPERINTENDENT Associated attestation - Marva Leonardo M.D. - 09/17/2019 1:32 PM JOB SUPERINTENDENT I was the supervising physician in the [...] 3 to 4 months for stent exchange. SUPERINTENDENT Ligia Waldron Pharm.D., R.Ph. - 09/16/2019 11:49 AM CST Warfarin [...] tonight with 7.5 mg dose. Ramona Waldron PharmElvia., R.Ph. [phone] SUPERINTENDENT Stephany Vick PLaith.Dotty., M.S. - 09/16/2019 7:33 AM CST [place] [address] ([facility]) Progress Note SUBJECTIVE CC: Anticoagulation management [...] / PLAN Ms. Wray is hospitalized on [place] [address] ([facility]) for evaluation and management of Obstruction Ureteropelvic. 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 I personally spent over half of a total 40 minutes in counseling and coordination of care as documented above. Stephany Vick P.A.-C., M.S. SUPERINTENDENT documented in this encounter H&P Notes Pranay Strauss M.D. - 09/15/2019 1:43 PM CST [facility] Medicine 7 ([facility]) Admission Note SUBJECTIVE CHIEF COMPLAINT Anticoagulation [...] Full Code Disposition: Home Counseling was provided udle-ry-jiji at bedside regarding the plan of care as stated above. I personally spent over half of a total 70 minutes in counseling and coordination of care as documented above. SUPERINTENDENT documented in this encounter Consult Notes Deanne [...] dialyzes on Sunday, Sunday and Sunday at [facility]. She normally dialyzes for 3.5 hours [...] due to not being available on the [facility] formulary. This will be resumed once Ms. [...] to needle cannulation. -- Yesterday at the [facility] dialysis unit, we marked a small [...] or concerns, please page the Nephrology A BLOOD BANK TECHNOLOGIST/PA pager ([phone]). SUPERINTENDENT documented in this encounter Nursing Notes Leta [...] Goal: Patient discharge needs identified Outcome: Completed SUPERINTENDENT Radha Fatima R.N. - 09/18/2019 5:43 PM CST Shift Goals: Clinical Goals for the Shift: Patient will have adequate pain control today Identify possible barriers to meeting goals/advancing plan of care: None End of Shift Summary: Patient pain has been well controlled today. Goal for INR to reach 1.8 in order to DC. Radha Oneil R.N. - 09/17/2019 5:48 PM CST Shift Goals: Clinical Goals for the Shift: Patient will walk in the ritter today Identify possible barriers to meeting goals/advancing plan of care: None End of Shift Summary: Patient has ambulated in the ritter once today. She had dialysis this morning. SUPERINTENDENT Soraya Torres R.N. - 09/16/2019 9:41 PM CST Problem: [...] tolerate dinner this evening. Up ad dorothea. SUPERINTENDENT Jon Hammer RDaviN. - 09/16/2019 2:59 PM CST Denies chest [...] Right chest dressed with gauze and tegaderm. SUPERINTENDENT documented in this encounter OR Notes Op Note - Geraldo Salinas M.D. - 09/16/2019 3:31 PM CST FULL OP NOTE Procedure(s) (LRB): EXCHANGE URETERAL STENT. (Right) Retrograde Pyelogram (Right) Surgeon(s) and Role: * Jakub Ray M.D., Ph.D. - Primary * Geraldo Salinas M.D. - Building Contractor * Adam Craig M.D. - Supervising Rubber Roller Grinder Anesthesia Type General Pre-operative Diagnosis Obstruction Ureteropelvic [...] Implant Name Type Inv. Item Serial No. Manager Quality Systems Lot No. LRB No. Used Action STNT URET INL 8FX20 - [id number] Ureteral Stent STNT URET INL 8FX20 [employer] [id number] Right 1 Explanted STNT URET INL 8FX20 - [id number] Ureteral Stent STNT URET INL 8FX20 [employer] [id number] Right 1 Implanted Geraldo Salinas M.D. SUPERINTENDENT documented in this encounter Miscellaneous Notes Hospital Course - Evelia Perkins C.N.P., R.N. - 09/16/2019 4:57 PM JOB SUPERINTENDENT 59-year-old female with PMH significant for ESRD [...] to achieve target INR goal of 1.8. SUPERINTENDENT documented in this encounter Plan of Treatment Upcoming Encounters Date Type Specialty Care Team Description 06/01/2022 Telemedicine Pharmacy An Nicholas APRN, C.N.P., D.N.P., M.S.N. [address] [place] [phone] (Wo rk) 07/31/2022 Lab Laboratory Medicine Tony Rubalcava M. B., ChBurke, MElvia. [address] [place] [phone] (Wo rk) 07/31/2022 Lab Laboratory Medicine Tony Rubalcava M. B., Sydnie, MDebra [address] [place] [phone] (Wo rk) 07/31/2022 Office Visit Transplant Tony Rubalcava M.B., SydnieMukund [address] [place] [phone] (Wo rk) 07/31/2022 Appointment Radiology Tony Rubalcava M.B., Mukund Otoole [address] [place] [address] [phone] (Wo rk) 08/01/2022 Office Visit Transplant Tony Rubalcava M.B., Mukund [place]toole [address] [place] [address] [phone] (Wo rk) 08/01/2022 Clinical Support Transplant Tony Rubalcava M.B., Mukund Otoole [address] [place] [phone] (Wo rk) documented as of this encounter Procedures Procedure Name Priority Date/Time Associated Comments Diagnosis PROTHROMBIN TIME Routine 09/19/2019 4:02 Results for (PT), P AM JOB SUPERINTENDENT this procedure are in the results section. HEPARIN LEVEL Routine 09/19/2019 4:02 Results for ANTI-XA ASSAY, P AM JOB SUPERINTENDENT this proced ure are in the results section. CBC WITHOUT Routine 09/19/2019 4:02 Results for DIFFERENTIAL, B AM JOB SUPERINTENDENT this procedu re are in the results section. HEMODIALYSIS Routine 09/18/2019 11:45 AM JOB SUPERINTENDENT PROTHROMBIN TIME Routine 09/18/2019 5:59 Results for (PT), P AM JOB SUPERINTENDENT this procedure are in the results section. HEPARIN LEVEL Routine 09/18/2019 5:59 Results for ANTI-XA ASSAY, P AM JOB SUPERINTENDENT this proced ure are in the results section. CBC WITHOUT Routine 09/18/2019 5:59 Results for DIFFERENTIAL, B AM JOB SUPERINTENDENT this procedu re are in the results section. HEPARIN LEVEL Timed 09/17/2019 Results for ANTI-XA ASSAY, P 11:00 PM JOB SUPERINTENDENT this proced ure are in the results section. HEPARIN LEVEL STAT 09/17/2019 4:51 Results for ANTI-XA ASSAY, P PM JOB SUPERINTENDENT this proced ure are in the results section. PROTHROMBIN TIME Timed 09/17/2019 4:42 Results for (PT), P AM JOB SUPERINTENDENT this procedure are in the results section. HEPARIN LEVEL Timed 09/17/2019 4:42 Results for ANTI-XA ASSAY, P AM JOB SUPERINTENDENT this proced ure are in the results section. CBC WITHOUT Timed 09/17/2019 4:42 Results for DIFFERENTIAL, B AM JOB SUPERINTENDENT this procedu re are in the results section. PHOSPHORUS Timed 09/17/2019 4:42 Results for (INORGANIC), S AM JOB SUPERINTENDENT this procedur e are in the results section. BASIC METABOLIC Timed 09/17/2019 4:42 Results f or PANEL, S/P AM JOB SUPERINTENDENT this procedure are in the results section. HEPARIN LEVEL Timed 09/16/2019 9:11 Results for ANTI-XA ASSAY, P PM JOB SUPERINTENDENT this proced ure are in the results section. FL FLUORO LESS THAN RAD - Routine 09/16/2019 3:54 Resu lts for 1 HOUR (most inpatients PM JOB SUPERINTENDENT this proced ure and all are in the outpatients) results section. RETROGRADE PYELOGRAM 09/16/2019 2:42 Obstruction PM JOB SUPERINTENDENT Ureteropelvic EXCHANGE URETERAL 09/16/2019 2:42 Obstruction STENT PM JOB SUPERINTENDENT Ureteropelvic HEMODIALYSIS Routine 09/16/2019 2:07 PM JOB SUPERINTENDENT HEPARIN LEVEL Timed 09/16/2019 1:58 Results for ANTI-XA ASSAY, P PM JOB SUPERINTENDENT this proced ure are in the results section. IR DIALYSIS / HIGH RAD - Routine 09/16/2019 Results for FLOW CATHETER (most inpatients 11:03 AM JOB SUPERINTENDENT this proce dure REMOVAL and all are in the outpatients) results section. HEPARIN LEVEL Timed 09/16/2019 6:49 Results for ANTI-XA ASSAY, P AM JOB SUPERINTENDENT this proced ure are in the results section. CBC WITHOUT Routine 09/16/2019 6:49 Results for DIFFERENTIAL, B AM JOB SUPERINTENDENT this procedu re are in the results section. HEPARIN LEVEL Timed 09/16/2019 Results for ANTI-XA ASSAY, P 12:29 AM JOB SUPERINTENDENT this proced ure are in the results section. ACTIVATED PARTIAL STAT 09/15/2019 5:17 Results for THROMBOPLASTIN TIME PM JOB SUPERINTENDENT this pro cedure (APTT), P are in the results section. PROTHROMBIN TIME STAT 09/15/2019 1:56 Results for (PT), P PM JOB SUPERINTENDENT this procedure are in the results section. CBC WITH STAT 09/15/2019 1:56 Results for DIFFERENTIAL, B PM JOB SUPERINTENDENT this procedu re are in the results section. PHOSPHORUS STAT 09/15/2019 1:56 Results for (INORGANIC), S PM JOB SUPERINTENDENT this procedur e are in the results section. MAGNESIUM, S STAT 09/15/2019 1:56 Results for PM JOB SUPERINTENDENT this procedure are in the results section. BASIC METABOLIC STAT 09/15/2019 1:56 Results f or PANEL, S/P PM JOB SUPERINTENDENT this procedure are in the results section. HEPATITIS B SURFACE Routine 09/15/2019 1:50 Resul ts for ANTIGEN PM JOB SUPERINTENDENT this procedure are in the results section. documented in this encounter Results (ABNORMAL) Prothrombin Time (PT) (09/19/2019 4:02 AM JOB SUPERINTENDENT) [facility] Method Time Signature Prothrombin 20.0 (H) 9.4 - 12.5 09/19/2019 DTL Time, P sec 4:47 AM JOB SUPERINTENDENT INR 1.8 0.9 - 1.1 09/19/2019 DTL 4:47 AM JOB SUPERINTENDENT Comment: ----ADDITIONAL INFORMATION---- Standard intensity warfarin therapeutic range: 2.0 to 3.0 ?? High intensity warfarin therapeutic rang e: 2.5 to 3.5 Specimen Anatomical Collection Method Collection Time Receive d Time (Source) Location / / Volume Laterality Blood (Blood, 09/19/2019 4:02 AM 09/19/19 20 4:25 Venous) JOB SUPERINTENDENT AM JOB SUPERINTENDENT Stephany Vick P.A.-C., M.S. LAB BLOOD ADD-ON Performing Organization Address City/State/ZIP Code Phon e Number [facility] - 200 [place], [place] [address] [facility] [place] [address] [facility] [place] 200 [facility] (ABNORMAL) CBC without Differential (09/19/2019 4:02 AM JOB SUPERINTENDENT) [facility] Method Time Signature Hemoglobin 11.2 (L) 11.6 - 09/19/2019 DTL 15.0 g/dL 4:31 AM JOB SUPERINTENDENT Hematocrit 36.3 35.5 - 09/19/2019 DTL 44.9 % 4:31 AM JOB SUPERINTENDENT Erythrocytes 3.90 (L) 3.92 - 09/19/2019 DTL 5.13 4:31 AM JOB SUPERINTENDENT x10(12)/L MCV 93.1 78.2 - 09/19/2019 DTL 97.9 fL 4:31 AM JOB SUPERINTENDENT RBC Distrib Width 14.8 12.2 - 09/19/2019 DTL 16.1 % 4:31 AM JOB SUPERINTENDENT Platelet Count 123 (L) 157 - 371 09/19/2019 DTL x10(9)/L 4:31 AM JOB SUPERINTENDENT Leukocytes 7.6 3.4 - 9.6 09/19/2019 DTL x10(9)/L 4:31 AM JOB SUPERINTENDENT Specimen Anatomical Collection Method Collection Time Receive d Time (Source) Location / / Volume Laterality Blood (Blood, 09/19/2019 4:02 AM 09/19/19 4:25 Venous) JOB SUPERINTENDENT AM JOB SUPERINTENDENT Pranay Strauss M.D. LAB BLOOD ADD-ON Performing Organization Address [facility] Phon e Number [facility] - [address] Heparin Anti-Xa Assay (09/19/2019 4:02 AM JOB SUPERINTENDENT) P athologist Signature Heparin 0.42 IU/mL 09/19/2019 DT Anti-Xa, P 4:47 AM JOB SUPERINTENDENT Comment: UFH therapeutic range: ?? 0.30-0.70 IU/mL [...] Laterality Blood (Blood, 09/19/2019 4:02 AM 09/19/19 4:25 Venous) JOB SUPERINTENDENT AM JOB SUPERINTENDENT Kay Ruiz M.D. LAB BLOOD NON ADD-ON Performing Organization Address City/[facility] Phon e Number [facility] - [address] [place], [place] [address] [facility] [place] [address] [facility] [address] Heparin Anti-Xa Assay (09/18/2019 5:59 AM JOB SUPERINTENDENT) P athologist Signature Heparin 0.37 IU/mL 09/18/2019 DTL Anti-Xa, P 8:41 AM JOB SUPERINTENDENT Comment: UFH therapeutic range: ?? 0.30-0.70 IU/mL [...] Laterality Blood (Blood, 09/18/2019 5:59 AM 09/18/19 20 6:14 Venous) JOB SUPERINTENDENT AM JOB SUPERINTENDENT Kay Ruiz M.D. LAB BLOOD NON ADD-ON Performing Organization Address City/State/ZIP Code Phon e Number [facility] - [address] [place], [place] [address] [facility] [place] [address] [facility] [place] [address] (ABNORMAL) Prothrombin Time (PT) (09/18/2019 5:59 AM JOB SUPERINTENDENT) Patholo gist Method Time Signature Prothrombin 16.9 (H) 9.4 - 12.5 09/18/2019 DTL Time, P sec 8:12 AM JOB SUPERINTENDENT INR 1.5 0.9 - 1.1 09/18/2019 DTL 8:12 AM JOB SUPERINTENDENT Comment: ----ADDITIONAL INFORMATION---- Standard intensity warfarin therapeutic range: 2.0 to 3.0 ?? High intensity warfarin therapeutic rang e: 2.5 to 3.5 Specimen Anatomical Collection Method Collection Time Receive d Time (Source) Location / / Volume Laterality Blood (Blood, 09/18/2019 5:59 AM 09/18/19 20 6:14 Venous) JOB SUPERINTENDENT AM JOB SUPERINTENDENT Stephany Vick P.A.-C., M.S. LAB BLOOD ADD-ON Performing Organization Address City/[facility] Phon e Number [facility] - [id number] [place] [address] (ABNORMAL) CBC without Differential (09/18/2019 5:59 AM JOB SUPERINTENDENT) Patholo gist Method Time Signature Hemoglobin 11.3 (L) 11.6 - 09/18/2019 DTL 15.0 g/dL 6:19 AM JOB SUPERINTENDENT Hematocrit 36.3 35.5 - 09/18/2019 DTL 44.9 % 6:19 AM JOB SUPERINTENDENT Erythrocytes 3.91 (L) 3.92 - 09/18/2019 DTL 5.13 6:19 AM JOB SUPERINTENDENT x10(12)/L MCV 92.8 78.2 - 09/18/2019 DTL 97.9 fL 6:19 AM JOB SUPERINTENDENT RBC Distrib Width 15.1 12.2 - 09/18/2019 DTL 16.1 % 6:19 AM JOB SUPERINTENDENT Platelet Count 129 (L) 157 - 371 09/18/2019 DTL x10(9)/L 6:19 AM JOB SUPERINTENDENT Leukocytes 7.8 3.4 - 9.6 09/18/2019 DTL x10(9)/L 6:19 AM JOB SUPERINTENDENT Specimen Anatomical Collection Method Collection Time Receive d Time (Source) Location / / Volume Laterality Blood (Blood, 09/18/2019 5:59 AM 09/18/19 20 6:14 Venous) JOB SUPERINTENDENT AM JOB SUPERINTENDENT Pranay Strauss M.D. LAB BLOOD ADD-ON Performing Organization Address [facility] Phon e Number [facility] - [address] [place] [address] Heparin Anti-Xa Assay (09/17/2019 11:00 PM JOB SUPERINTENDENT) P athologist Signature Heparin 0.44 IU/mL 09/17/2019 DT Anti-Xa, P 11:47 PM JOB SUPERINTENDENT Comment: UFH therapeutic range: ?? 0.30-0.70 IU/mL [...] Blood (Blood, 09/17/2019 11:00 09/17/2019 Venous) PM JOB SUPERINTENDENT 11:15 PM JOB SUPERINTENDENT Kay Ruiz M.D. LAB BLOOD NON ADD-ON Performing Organization Address City/[facility] Phon e Number [facility] - [address] Heparin Anti-Xa Assay (09/17/2019 4:51 PM JOB SUPERINTENDENT) P athologist Signature Heparin 0.48 IU/mL 09/17/2019 DT Anti-Xa, P 5:29 PM JOB SUPERINTENDENT Comment: UFH therapeutic range: ?? 0.30-0.70 IU/mL [...] Laterality Blood 09/17/2019 4:51 PM 0 5:07 JOB SUPERINTENDENT PM JOB SUPERINTENDENT Kay Ruiz M.D. LAB BLOOD NON ADD-ON Performing Organization Address City/[facility] Phon e Number [facility] - [address] [place], [place] [address] [place] [id number] [place] [address] [address] [facility] Heparin Anti-Xa Assay (09/17/2019 4:42 AM JOB SUPERINTENDENT) P athologist Signature Heparin 0.57 IU/mL 09/17/2019 DTL Anti-Xa, P 6:05 AM JOB SUPERINTENDENT Comment: UFH therapeutic range: ?? 0.30-0.70 IU/mL [...] (Blood, 09/17/2019 4:42 AM 09/17/19 5:36 Venous) JOB SUPERINTENDENT AM JOB SUPERINTENDENT Kay Ruiz M.D. LAB BLOOD NON ADD-ON Performing Organization Address City/[facility] Phon e Number [facility] - 200 [place], [place] [address] [place] [address] [facility] 200 [facility] Prothrombin Time (PT) (09/17/2019 4:42 AM JOB SUPERINTENDENT) athologist Signature Prothrombin 12.4 9.4 - 12.5 09/17/2019 DTL Time, P sec 6:05 AM JOB SUPERINTENDENT INR 1.1 0.9 - 1.1 09/17/2019 DTL 6:05 AM JOB SUPERINTENDENT Comment: ----ADDITIONAL INFORMATION---- Standard intensity warfarin therapeutic range: 2.0 to 3.0 ?? High intensity warfarin therapeutic rang e: 2.5 to 3.5 Specimen Anatomical Collection Method Collection Time Receive d Time (Source) Location / / Volume Laterality Blood (Blood, 09/17/2019 4:42 AM 09/17/19 5:36 Venous) JOB SUPERINTENDENT AM JOB SUPERINTENDENT Stephany Vick P.A.-C., M.S. LAB BLOOD ADD-ON Performing Organization Address City/[facility] Code Phon e Number [facility] - 200 [place], [place] [address] [place] [address] (ABNORMAL) CBC without Differential (09/17/2019 4:42 AM JOB SUPERINTENDENT) Patholo gist Method Time Signature Hemoglobin 12.3 11.6 - 09/17/2019 DTL 15.0 g/dL 5:48 AM JOB SUPERINTENDENT Hematocrit 40.0 35.5 - 09/17/2019 DTL 44.9 % 5:48 AM JOB SUPERINTENDENT Erythrocytes 4.32 3.92 - 09/17/2019 DTL 5.13 5:48 AM JOB SUPERINTENDENT x10(12)/L MCV 92.6 78.2 - 09/17/2019 DTL 97.9 fL 5:48 AM JOB SUPERINTENDENT RBC Distrib Width 14.9 12.2 - 09/17/2019 DTL 16.1 % 5:48 AM JOB SUPERINTENDENT Platelet Count 151 (L) 157 - 371 09/17/2019 DTL x10(9)/L 5:48 AM JOB SUPERINTENDENT Leukocytes 9.9 (H) 3.4 - 9.6 09/17/2019 DTL x10(9)/L 5:48 AM JOB SUPERINTENDENT Specimen Anatomical Collection Method Collection Time Receive d Time (Source) Location / / Volume Laterality Blood (Blood, 09/17/2019 4:42 AM 09/17/19 20 5:36 Venous) JOB SUPERINTENDENT AM JOB SUPERINTENDENT Pranay Strauss M.D. LAB BLOOD ADD-ON Performing Organization Address City/State/[facility] Code Phon e Number [facility] - 200 [place], [place] [address] [place] [id number] Phosphorus Inorganic (09/17/2019 4:42 AM JOB SUPERINTENDENT) P athologist Signature Phosphorus 4.4 2.5 - 4.5 09/17/2019 DTL (Inorganic), S mg/dL 6:23 AM JOB SUPERINTENDENT Specimen Anatomical Collection Method Collection Time Receive d Time (Source) Location / / Volume Laterality Blood (Blood, 09/17/2019 4:42 AM 09/17/19 20 5:36 Venous) JOB SUPERINTENDENT AM JOB SUPERINTENDENT Stephany Vick P.A.-C., M.S. LAB BLOOD ADD-ON Performing Organization Address City/State/ZIP Code Phon e Number [facility] - [address] [place], [place] [address] [facility] [place] [address] Laboratories-[facility] [place] [address] (ABNORMAL) Basic Metabolic Panel (09/17/2019 4:42 AM JOB SUPERINTENDENT) Analysis Performed At Patho logist Time Signature Potassium, S 5.3 (H) 3.6 - 5.2 09/17/2019 DTL mmol/L 6:23 AM JOB SUPERINTENDENT Sodium, S 137 135 - 145 09/17/2019 DTL mmol/L 6:23 AM JOB SUPERINTENDENT Chloride, S 95 (L) 98 - 107 09/17/2019 DTL mmol/L 6:23 AM JOB SUPERINTENDENT Bicarbonate, S 23 22 - 29 09/17/2019 DTL mmol/L 6:23 AM JOB SUPERINTENDENT Anion Gap 19 (H) 7 - 15 09/17/2019 DTL 6:23 AM JOB SUPERINTENDENT BUN (Blood Urea 40 (H) 6 - 21 09/17/2019 DTL Nitrogen), S mg/dL 6:23 AM JOB SUPERINTENDENT Creatinine 7.10 (H) 0.59 - 09/17/2019 DTL 1.04 mg/dL 6:23 AM JOB SUPERINTENDENT eGFR-Non <15 (L) >=60 09/17/2019 DTL Black/ mL/min/BSA 6:23 AM JOB SUPERINTENDENT [place] Comment: ----ADDITIONAL INFORMATION---- Estimated GFR calculated using the 2009 CKD_EPI creatinine equation. eGFR-Black/ <15 (L) >=60 mL/min/BSA 2019 6:23 AM JOB SUPERINTENDENT DTL Comment: ----ADDITIONAL INFORMATION---- Estimated GFR calculated using the 2009 CKD_EPI creatinine equation. Calcium, Total, S 9.8 8.8 - 10.2 mg/dL 09/17/2019 6:50 AM JOB SUPERINTENDENT DTL Glucose, S 201 (H) 70 - 140 mg/dL 09/17/2019 6:23 AM JOB SUPERINTENDENT D TL Specimen Anatomical Collection Method Collection Time Receive d Time (Source) Location / / Volume Laterality Blood (Blood, 09/17/2019 4:42 AM 09/17/19 20 5:36 Venous) JOB SUPERINTENDENT AM JOB SUPERINTENDENT Stephany Vick P.A.-C., M.S. LAB BLOOD ADD-ON Performing Organization Address City/State/ZIP Code Phon e Number [facility] - [address] [place], [place] [address] [place] [address] Laboratories-[facility] [place] 200 [facility] Heparin Anti-Xa Assay (09/16/2019 9:11 PM JOB SUPERINTENDENT) P athologist Signature Heparin 0.47 IU/mL 09/16/2019 DTL Anti-Xa, P 10:07 PM JOB SUPERINTENDENT Comment: UFH therapeutic range: ?? 0.30-0.70 IU/mL [...] Laterality Blood (Blood, 09/16/2019 9:11 PM 09/16/19 9:53 Venous) JOB SUPERINTENDENT PM JOB SUPERINTENDENT Jakub Ray M.D., Ph.D. LAB BLOOD NON ADD-ON Performing Organization Address City/[facility]/ZIP Code Phon e Number [facility] - [address] [place], [place] [address] [place] [address] Laboratories-[address] [place] Fluoro Less Than 1 Hour (09/16/2019 3:54 PM JOB SUPERINTENDENT) Specimen (Source) Anatomical Location Collection Method / Collectio n Time Received Time / Laterality Volume Narrative 152 HOS LOS RST - 09/16/2019 3:55 PM JOB SUPERINTENDENT This exam does not require a radiologist review or interpretation. Please refer to the patient's medical record on this date for clinical details. Jakub Ray M.D., Ph.D. IMG FLUOROSCOPY PROCEDURES Performing Organization Address City/[facility]/ZIP Code Phon e Number 152 HOS LOS RST Heparin Anti-Xa Assay (09/16/2019 1:58 PM JOB SUPERINTENDENT) P athologist Signature Heparin 0.17 IU/mL 09/16/2019 DTL Anti-Xa, P 2:28 PM JOB SUPERINTENDENT Comment: UFH therapeutic range: ?? 0.30-0.70 IU/mL [...] 09/16/2019 1:58 PM 09/16/19 20 2:16 Venous) JOB SUPERINTENDENT PM JOB SUPERINTENDENT Pranay Strauss M.D. LAB BLOOD NON ADD-ON Performing Organization Address City/State/ZIP Code Phon e Number [facility] - [address] [place], [place] [address] [facility] [place] [place] [address] Laboratories-[facility] [place] [address] SW IR Dialysis / High Flow Catheter Removal (09/16/2019 11:03 AM JOB SUPERINTENDENT) Anatomical Region Laterality Modality Body, Vascular Interventional RST LOS, Vascular N/A X-Ray Angiography Interventional ARZ LOS, Vascular Interventional FLA LOS Specimen (Source) Anatomical Collection Method Collection Time Re ceived Time Location / / Volume Laterality 09/17/2019 3:44 PM JOB SUPERINTENDENT Impressions 09/17/2019 3:48 PM JOB SUPERINTENDENT Uncomplicated removal of a right EJ tunneled dialysis line. NR Narrative 09/17/2019 3:48 PM JOB SUPERINTENDENT EXAM: IR DIALYSIS / HIGH FLOW CATHETER REMOVAL CLINICAL HISTORY: ??59-year-old female w ith ESRD. ??Underwent exchange of a previous left IJ tunneled dialysis line for a right IJ tunneled dialysis catheter. ??This is no longer needed, sh e presents to [facility] for removal. ??Prior to procedure, patient was on continuous hep umm nomogram for recent AV graft intervention. ??This was held for 1 hour prior to catheter removal. TECHNIQUE: ??Patient transferred down fr [facility] floor for procedure. ??She is positioned supine [...] is no longer needed, she presents to [facility] for removal. Prior to procedure, patient was [...] EJ tunn eled dialysis line. NR Pranay [place] IR PROCEDURES Heparin Anti-Xa Assay (09/16/2019 6:49 AM JOB SUPERINTENDENT) P athologist Signature Heparin 0.62 IU/mL 09/16/2019 DTL Anti-Xa, P 7:25 AM JOB SUPERINTENDENT Comment: UFH therapeutic range: ?? 0.30-0.70 IU/mL [...] Laterality Blood (Blood, 09/16/2019 6:49 AM 09/16/19 7:08 Venous) JOB SUPERINTENDENT AM JOB SUPERINTENDENT Stephany Vick P.A.-C. M.S. LAB BLOOD NON ADD-ON Performing Organization Address City/State/[facility] Code Phon e Number [facility] - [address] [place] [address] [facility] [place] [place] [address] Laboratories-[facility] [place] 200 [facility] (ABNORMAL) CBC without Differential (09/16/2019 6:49 AM JOB SUPERINTENDENT) [facility] gist Method Time Signature Hemoglobin 12.3 11.6 - 09/16/2019 DTL 15.0 g/dL 7:18 AM JOB SUPERINTENDENT Hematocrit 39.6 35.5 - 09/16/2019 DTL 44.9 % 7:18 AM JOB SUPERINTENDENT Erythrocytes 4.27 3.92 - 09/16/2019 DTL 5.13 7:18 AM JOB SUPERINTENDENT x10(12)/L MCV 92.7 78.2 - 09/16/2019 DTL 97.9 fL 7:18 AM JOB SUPERINTENDENT RBC Distrib Width 15.2 12.2 - 09/16/2019 DTL 16.1 % 7:18 AM JOB SUPERINTENDENT Platelet Count 140 (L) 157 - 371 09/16/2019 DTL x10(9)/L 7:18 AM JOB SUPERINTENDENT Leukocytes 6.7 3.4 - 9.6 09/16/2019 DTL x10(9)/L 7:18 AM JOB SUPERINTENDENT Specimen Anatomical Collection Method Collection Time Receive d Time (Source) Location / / Volume Laterality Blood (Blood, 09/16/2019 6:49 AM 09/16/19 7:08 Venous) JOB SUPERINTENDENT AM JOB SUPERINTENDENT Pranay Strauss M.D. LAB BLOOD ADD-ON Performing Organization Address City/[facility]/ZIP Code Phon e Number [facility] - [id number] [place] [address] Heparin Anti-Xa Assay (09/16/2019 12:29 AM JOB SUPERINTENDENT) athologist Signature Heparin 0.41 IU/mL 09/16/2019 DT Anti-Xa, P 1:07 AM JOB SUPERINTENDENT Comment: UFH therapeutic range: ?? 0.30-0.70 IU/mL [...] Blood (Blood, 09/16/2019 12:29 09/16/2019 Venous) AM JOB SUPERINTENDENT 12:46 AM JOB SUPERINTENDENT Amairs Stack M.D., M.S. LAB BLOOD NON ADD-ON Performing Organization Address City/[facility]/ZIP Code Phon e Number [facility] - [address] [address] [facility]-[address] APTT (Activated Partial Thromboplastin Time) (09/15/2019 5:17 PM JOB SUPERINTENDENT) athologist Signature Activated 27 25 - 37 sec 09/15/2019 STMA Partial 5:32 PM JOB SUPERINTENDENT Thrombopl Time, P Specimen Anatomical Collection Method Collection Time Receive d Time (Source) Location / / Volume Laterality Blood 09/15/2019 5:17 PM 0 5:23 JOB SUPERINTENDENT PM JOB SUPERINTENDENT Pranay Strauss M.D. LAB BLOOD ADD-ON Performing Organization Address City/[facility] Phon e Number [facility] - [address] [place], [place] [address] [place] [id number] [place] [address] (ABNORMAL) Magnesium (09/15/2019 1:56 PM JOB SUPERINTENDENT) P athologist Signature Magnesium, S 1.6 (L) 1.7 - 2.3 09/15/2019 DTL mg/dL 3:06 PM JOB SUPERINTENDENT Specimen Anatomical Collection Method Collection Time Receive d Time (Source) Location / / Volume Laterality Blood (Blood, 09/15/2019 1:56 PM 09/15/19 20 2:29 Venous) JOB SUPERINTENDENT PM JOB SUPERINTENDENT Pranay Strauss M.D. LAB BLOOD ADD-ON Performing Organization Address City/[facility]/ZIP Code Phon e Number [facility] - [address] Phosphorus Inorganic (09/15/2019 1:56 PM JOB SUPERINTENDENT) P athologist Signature Phosphorus 3.4 2.5 - 4.5 09/15/2019 DTL (Inorganic), S mg/dL 3:06 PM JOB SUPERINTENDENT Specimen Anatomical Collection Method Collection Time Receive d Time (Source) Location / / Volume Laterality Blood (Blood, 09/15/2019 1:56 PM 09/15/19 20 2:29 Venous) JOB SUPERINTENDENT PM JOB SUPERINTENDENT Pranay Strauss M.D. LAB BLOOD ADD-ON Performing Organization Address City/State/ZIP Code Phon e Number [facility] - 200 [place] [id number] [address] (ABNORMAL) Prothrombin Time (PT) (09/15/2019 1:56 PM JOB SUPERINTENDENT) Patholo gist Method Time Signature Prothrombin 16.7 (H) 9.4 - 12.5 09/15/2019 STMA Time, P sec 2:09 PM JOB SUPERINTENDENT INR 1.5 0.9 - 1.1 09/15/2019 STMA 2:09 PM JOB SUPERINTENDENT Comment: ----ADDITIONAL INFORMATION---- Standard intensity warfarin therapeutic range: 2.0 to 3.0 ?? High intensity warfarin therapeutic rang e: 2.5 to 3.5 Specimen Anatomical Collection Method Collection Time Receive d Time (Source) Location / / Volume Laterality Blood (Blood, 09/15/2019 1:56 PM 09/15/19 20 2:00 Venous) JOB SUPERINTENDENT PM JOB SUPERINTENDENT Pranay Strauss M.D. LAB BLOOD ADD-ON Performing Organization Address City/State/ZIP Code Phon e Number [facility] - 200 [place], [place] [address] [facility] [place] [address] Laboratories-[facility] [place] [address] [facility] (ABNORMAL) Basic Metabolic Panel (09/15/2019 1:56 PM JOB SUPERINTENDENT) Analysis Performed At Patho logist Time Signature Potassium, P 4.2 3.6 - 5.2 09/15/2019 STMA mmol/L 2:22 PM JOB SUPERINTENDENT Sodium, P 135 135 - 145 09/15/2019 STMA mmol/L 2:22 PM JOB SUPERINTENDENT Chloride, P 94 (L) 98 - 107 09/15/2019 STMA mmol/L 2:22 PM JOB SUPERINTENDENT Bicarbonate, P 29 22 - 29 09/15/2019 STMA mmol/L 2:22 PM JOB SUPERINTENDENT Anion Gap, P 12 7 - 15 09/15/2019 STMA 2:22 PM JOB SUPERINTENDENT BUN (Blood Urea 16 6 - 21 09/15/2019 STMA Nitrogen), P mg/dL 2:22 PM JOB SUPERINTENDENT Creatinine 3.91 (H) 0.59 - 09/15/2019 STMA 1.04 mg/dL 2:22 PM JOB SUPERINTENDENT eGFR-Black/Afri <15 (L) >=60 09/15/2019 STMA can [place] mL/min/BSA 2:22 PM JOB SUPERINTENDENT Comment: ----ADDITIONAL INFORMATION---- Estimated GFR calculated using the 2009 CKD_EPI creatinine equation. eGFR Non-Black/ <15 (L) >=60 mL/min/BSA 09/15/2019 2:22 PM JOB SUPERINTENDENT STMA [place] Comment: ----ADDITIONAL INFORMATION---- Estimated GFR calculated using the 2009 CKD_EPI creatinine equation. Calcium, Total, P 9.3 8.8 - 10.2 mg/dL 09/15/2019 2:22 PM JOB SUPERINTENDENT STMA Glucose, P 107 70 - 140 mg/dL 09/15/2019 2:22 PM JOB SUPERINTENDENT S TMA Specimen Anatomical Collection Method Collection Time Receive d Time (Source) Location / / Volume Laterality Blood (Blood, 09/15/2019 1:56 PM 09/15/19 20 2:01 Venous) JOB SUPERINTENDENT PM JOB SUPERINTENDENT Pranay Strauss M.D. LAB BLOOD ADD-ON Performing Organization Address City/State/ZIP Code Phon e Number [facility] - 200 [place], [place] [address] [facility] [place] [address] Laboratories-[facility] [place] [address] (ABNORMAL) CBC with Differential, Blood (09/15/2019 1:56 PM JOB SUPERINTENDENT) [facility] Method Time Signature Hemoglobin 12.5 11.6 - 09/15/2019 STMA 15.0 g/dL 2:04 PM JOB SUPERINTENDENT Hematocrit 39.2 35.5 - 09/15/2019 STMA 44.9 % 2:04 PM JOB SUPERINTENDENT Erythrocytes 4.34 3.92 - 09/15/2019 STMA 5.13 2:04 PM JOB SUPERINTENDENT x10(12)/L MCV 90.3 78.2 - 09/15/2019 STMA 97.9 fL 2:04 PM JOB SUPERINTENDENT RBC Distrib Width 15.2 12.2 - 09/15/2019 STMA 16.1 % 2:04 PM JOB SUPERINTENDENT Platelet Count 163 157 - 371 09/15/2019 STMA x10(9)/L 2:04 PM JOB SUPERINTENDENT Leukocytes 8.9 3.4 - 9.6 09/15/2019 STMA x10(9)/L 2:04 PM JOB SUPERINTENDENT Neutrophils 6.19 1.56 - 09/15/2019 STMA 6.45 2:04 PM JOB SUPERINTENDENT x10(9)/L Lymphocytes 1.61 0.95 - 09/15/2019 STMA 3.07 2:04 PM JOB SUPERINTENDENT x10(9)/L Monocytes 0.90 (H) 0.26 - 09/15/2019 STMA 0.81 2:04 PM JOB SUPERINTENDENT x10(9)/L Eosinophils 0.16 0.03 - 09/15/2019 STMA 0.48 2:04 PM JOB SUPERINTENDENT x10(9)/L Basophils 0.06 0.01 - 09/15/2019 STMA 0.08 2:04 PM JOB SUPERINTENDENT x10(9)/L Specimen Anatomical Collection Method Collection Time Receive d Time (Source) Location / / Volume Laterality Blood (Blood, 09/15/2019 1:56 PM 09/15/19 20 2:00 Venous) JOB SUPERINTENDENT PM JOB SUPERINTENDENT Pranay Strauss M.D. LAB BLOOD ADD-ON Performing Organization Address City/[facility]/ZIP Code Phon e Number [facility] - [address] [place], [place] [address] [place] [address] Laboratories-[facility] [place] [address] Hepatitis B Surface Antigen (09/15/2019 1:50 PM JOB SUPERINTENDENT) athologist Signature HBs Antigen, S Negative Negative 09/16/2019 [facility] 10:21 PM JOB SUPERINTENDENT Specimen Anatomical Collection Method Collection Time Receive d Time (Source) Location / / Volume Laterality Blood (Blood, 09/15/2019 1:50 PM 09/16/19 20 8:17 Venous) JOB SUPERINTENDENT PM JOB SUPERINTENDENT Deanne Fisher APRN, C.N.P., M.S.N. LAB MICROBIOLOG Y - BLOOD ORDERABLES Performing Organization Address [facility] Phon e Number [facility] [address] [place], [place] [address] [facility] [place] [address] Laboratory Medicine and Pathology [address] 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) Chronic Failure Renal End Stage Renal Di sease Dialysis Dependent (HCC) Obstruction Ureteropelvic documented in this encounter Admitting Diagnoses Diagnosis Ureteral Stent Exchange Obstruction Ureteropelvic documented in this encounter Administered Medications Inactive Administered Medications - up to 3 most recent administrations Medication Order MAR Action Action Date Dose Rate Site calcium carbonate tablet Given 09/19/2019 12:34 PM 1,000 mg of c alcium 1,000 mg of calcium JOB SUPERINTENDENT (OS-KEISHA) 1,000 mg of calcium, oral, 2 times daily with meals, First dose on Elizabeth 09/18/19 at 0800, Doses listed are in mg of elemental calcium. Take with food. Given 09/19/2019 7:13 AM JOB SUPERINTENDENT 1,000 mg of calcium Given 09/18/2019 11:53 AM JOB SUPERINTENDENT 1,000 mg of calcium ciprofloxacin tablet 500 mg (CIPRO) Given 09/18/2019 9:34 PM JOB SUPERINTENDENT 500 mg 500 mg, oral, Daily at bedtime, First dose on 09/15/19 at 2100, For 5 days, Take 2 hours before or 6 hours after antacids containing magnesium or aluminum, sucralfate, didanosine, polymeric phosphate binders, or products containing calcium, iron, or zinc., Drug Monitoring Program: Pharmacist to adjust medication dosing based on indication and drug clearance factors., Indications: Lower UTI, Non-Catheter Given 09/17/2019 9:03 PM JOB SUPERINTENDENT 500 mg Given 09/16/2019 9:03 PM JOB SUPERINTENDENT 500 mg gabapentin capsule 200 mg (NEURONTIN) Given 09/19/2019 12:34 PM JOB SUPERINTENDENT 200 mg 200 mg, oral, 2 times daily, First dose on Sun09/15/19 at 2100 Given 09/18/2019 9:34 PM JOB SUPERINTENDENT 200 mg Given 09/18/2019 8:51 AM JOB SUPERINTENDENT 200 mg heparin (porcine) 1,000 unit/mL injectio [...] (Units/kg): No Loading Dose heparin (porcine) 100 Rate/Dose Verify 09/19/2019 7:00 10.997 Units /kg/hr 10.7 mL/hr Units/mL in D5W 250 AM JOB SUPERINTENDENT mL infusion 0-40 Units/kg/hr ? 97.3 kg [...] Heparin resumed New Bag 09/18/2019 9:34 PM JOB SUPERINTENDENT 11 Units/kg/hr 10.7 mL/hr Rate/Dose Verify 09/18/2019 8:57 AM JOB SUPERINTENDENT 11 Units/kg/hr 10.7 mL/hr iohexol 300 mg iodine/mL solution (OMNIP AQUE) Given 09/16/2019 3:39 PM JOB SUPERINTENDENT 4 mL As needed, Starting on Sun09/16/19 at 1539, Intra-Op lidocaine-prilocaine 2.5-2.5 % cream (EM LA) Given 09/19/2019 6:27 AM JOB SUPERINTENDENT topical, As needed, other, prior to dialysis on dialysis days MWF, Starting on Sun09/15/19 at 1341 Given 09/17/2019 7:21 AM JOB SUPERINTENDENT multivitamin renal failure 1 tablet Given 09/18/2019 5:35 PM JOB SUPERINTENDENT 1 tablet (DIALYVITE) 1 tablet, oral, Every evening, First dose on Sun09/15/19 at 1800, give after dialysis on dialysis days Given 09/17/2019 5:44 PM JOB SUPERINTENDENT 1 tablet Given 09/16/2019 5:00 PM JOB SUPERINTENDENT 1 tablet mycophenolate capsule 250 mg (CELLCEPT) Given 09/19/2019 12:34 PM JOB SUPERINTENDENT 250 mg 250 mg, oral, 2 times daily, First dose on Sun09/15/19 at 2100, Swallow whole. Do NOT crush, chew or open capsule. Given 09/18/2019 9:34 PM JOB SUPERINTENDENT 250 mg Given 09/18/2019 8:51 AM JOB SUPERINTENDENT 250 mg nebivolol tablet 10 mg (BYSTOLIC) Given 09/18/2019 9:34 PM JOB SUPERINTENDENT 10 mg 10 mg, oral, Daily at bedtime, First dose on Sun09/15/19 at 2100 Given 09/17/2019 9:03 PM JOB SUPERINTENDENT 10 mg Given 09/16/2019 9:04 PM JOB SUPERINTENDENT 10 mg nicotine 7 mg/24 hr 1 patch Medication Applied 09/19/2019 7:14 AM JOB SUPERINTENDENT 1 patch Back (NICODERM CQ) 1 patch, transdermal, Administer over 24 Hours, Daily, First dose on Sun09/16/19 at 0900 Medication Applied 09/18/2019 8:52 AM JOB SUPERINTENDENT 1 patch Left Shoulder Medication Applied 09/17/2019 1:10 PM JOB SUPERINTENDENT 1 patch Right Shoulder predniSONE tablet 5 mg (DELTASONE) Given 09/18/2019 9:34 PM JOB SUPERINTENDENT 5 mg 5 mg, oral, Daily at bedtime, First dose on Sun09/15/19 at 2100 Given 09/17/2019 9:03 PM JOB SUPERINTENDENT 5 mg Given 09/16/2019 9:03 PM JOB SUPERINTENDENT 5 mg rosuvastatin tablet 5 mg (CRESTOR) Given 09/18/2019 9:34 PM JOB SUPERINTENDENT 5 mg 5 mg, oral, Daily at bedtime, First dose on Sun09/15/19 at 2100 Given 09/17/2019 9:03 PM JOB SUPERINTENDENT 5 mg Given 09/16/2019 9:03 PM JOB SUPERINTENDENT 5 mg tacrolimus capsule 2 mg (PROGRAF) Given 09/19/2019 12:34 PM JOB SUPERINTENDENT 2 mg 2 mg, oral, 2 times daily, First dose on Sun09/15/19 at 2100 Given 09/18/2019 9:34 PM JOB SUPERINTENDENT 2 mg Given 09/18/2019 8:51 AM JOB SUPERINTENDENT 2 mg warfarin management (COUMADIN) oral, Daily, First dose on Sun09/16/19 at 1145, Pharma cist to Dose: Yes, Target INR: 2.5 - 3.5, Comorbidities that constitute Warfarin Sensitivity: No known comorbidities that change warfarin sensitivity, Indica tion: Other, Explanatory Comment: thrombosis/clotting, Therapy type: Resume War farin therapy documented in this encounter Active and Recently Administered Medications Times are shown in JOB SUPERINTENDENT. Scheduled Medication Order 09/17/2019 09/18/2019 09/19/2019 calcium carbonate tablet 1,000 mg of calcium (OS-KEISHA) 0851 (Given - Provider: Radha Fatima R.N.)1153 (Given - Provider: Radha Fatima R.N.) 0713 (Given - Provider: Leta Wolff R.N.)1234 (Given [...] UTI, Non-Catheter gabapentin capsule 200 mg (NEURONTIN) 1311 (Given - Pr ovider: Radha Fatima R.N.)2102 [...] dialysis days mycophenolate capsule 250 mg (CELLCEPT) 131 (Given - Provider: Radha Fatima R.N.)2102 (Given [...] 1311 (Given - Provid er: Radha Fatima R.N.)2102 (Given - Provider: Pipe Santana R.N.) 0851 (Given - Provider: Radha Fatima R.N.)2133 (Given - Provider: Debora Walton R.N.) 1234 [...] therapy warfarin tablet 6 mg (COUMADIN) (COMPLETED) 1735 (Given - Provider: Radha Fatima R.N.) 6 mg, oral, Once, On Sun09/18/19 at 1700, For 1 dose warfarin tablet 7.5 mg (COUMADIN) (COMPLETED) 1744 (Gi maeve - Provider: Radha Fatima R.N.) 7.5 mg, oral, Once, On Sun09/17/19 at 1700, For 1 dose Continuous Medication [...] (CANCELED) 0900 (Given - Provider: Annamaria Rushing RRalf) 0.2 mL, intradermal, As needed, needle i nsertion, Starting on Sun09/17/19 at 0827, Dialysis, As needed with needle insertion for each cannulation. Dialysis order only. lidocaine 10 mg/mL (1 %) injection 0.2 mL (XYLOCAINE) (CANCELED) 0840 (Given - Provider: Trinidad Koenig R.N.) 0.2 mL, intradermal, As needed, needle i nsertion, Starting on Sun09/19/19 at 0752, Dialysis, As needed with needle insertion for each cannulation. Dialysis order only. lidocaine-prilocaine 2.5-2.5 % cream (EMLA) 0721 (Give n - Provider: Radha Fatima RRalf) 0627 (Given - Provider: Rehana Chowdary R.N.) topical, As needed, other, prior to dial ysis on dialysis days MWF, Starting on Sun09/15/19 at 1341 NaCl 0.9 % bolus 100 mL (CANCELED) 0830 (New Bag - Provider: Trinidad Koenig RRalf) 100 mL, intravenous, at 6,000 mL/hr, Adm [...] less than 0.1, Starting on Sun09/15/19 at 1551
Intensity type: Moderate
An ti-Xa < 0.1: Loading Dose (Units/kg): 60
Anti-Xa 0.1-0.19: Loading Dose (Units/kg): 30
Anti-Xa > 0.19: Loading Dose (Units/kg): No Loading Dose documented in this encounter Additional Health Concerns Assessment Noted Time PHQ-9 Depression Total Score: 4 01/30/2019 12:13 PM CD T documented as of this encounter
--- OUTSIDE RECORDS SUMMARY | 2022-05-25 13:18 | XMS_ITS | Encounter Summary ---
:1960 Author Organization [facility] Address [address] [place] [address] Care Team Providers Name Role Phone Unavailable Primary Care Provider Unavailable Reason for Visit Reason Comments Med Refill Encounter Details Date Type Department Care Team Description 07/10/2019 Refill Division of Nephrology and Tanya, Neymar Yap Jr., Med Refill Hypertension in [facility] [address] [facility] 200 [place] [address] [place] [address] [phone] Social History Tobacco Use Types Packs/Day Years [...] How often do you attend restorationist or adventist 1 to 4 times per [...] Nicholas APRN, C.N.P., D.N.P., M.S.N. [address] [place] [address] [phone] (Nicolas wen) 07/31/2022 Lab Laboratory Medicine Tony Rubalcava M. B., ChBurke, MElvia. [address] [place] [address] [phone] (Nicolas wen) 07/31/2022 Lab Laboratory Medicine Tony Rubalcava M. B., ChBurke, M.Michelle. [address] [place] [address] [phone] (Nicolas wen) 07/31/2022 Office Visit Transplant Tony Rubalcava M.B., ChBurke, MElvia. [address] [place] [address] [phone] (Nicolas wen) 07/31/2022 Appointment Radiology Tony Rubalcava M.B., Ch.BDavi, Mukund [address] [place] [address] [phone] (Nicolas wen) 08/01/2022 Office Visit Transplant Tony Rubalcava M.B., Mukund Otoole [address] [place] [address] [phone] (Nicolas wen) 08/01/2022 Clinical Support Transplant Tony Rubalcava M.B., Sydnie, Mukund [address] [place] [address] [phone] (Nicolas wen) documented as of this encounter Visit Diagnoses Not on filedocumented in this encounter Additional Health Concerns Assessment Noted Time PHQ-9 Depression Total Score: 4 01/30/2019 12:13 PM CD T documented as of this encounter
--- OUTSIDE RECORDS SUMMARY | 2022-05-25 13:18 | XMS_ITS | Encounter Summary ---
:1960 Author Organization [facility] Address [address] [place] [address] Care Team Providers Name Role Phone Unavailable Primary Care Provider Unavailable Reason for Visit Reason Onset Date Comments NDC MED REQUEST 06/02/2019 Encounter Details Date Type Department Care Team Description 06/02/2019 Clinical Communication Department of STEPHY Bray MED REQUEST Nicotine Pretty Bruno M.A., Dependence, C.T.T.S. [facility], [address] [place] [address] in [facility] [phone] [place] [address] [place], [place] (Work) [phone] Social History Tobacco Use Types Packs/Day Years [...] How often do you attend yarsanism or anglican 1 to 4 times per [...] encounter Miscellaneous Notes Telephone Encounter - Pretty Bray M.A., C.T.T.S. - 06/02/2019 10:56 AM CDT 1. 14 mg nicotine patch with refills 2. 2 mg MINI lozenges with refills [facility] in [place], [place] documented in this encounter Plan of Treatment Upcoming Encounters Date Type Specialty Care Team Description 06/01/2022 Telemedicine Pharmacy An Nicholas APRN, C.N.P., D.N.P., M.S.N. [address] [place] [address] [phone] (Wo behzad) 07/31/2022 Lab Laboratory Medicine Tony Rubalcava M. B., Ch.BDavi, M.D. [address] [place] [address] [phone] (Wo behzad) 07/31/2022 Lab Laboratory Medicine Tony Rubalcava M. B., Sydnie, Mukund [address] [place] [address] [phone] (Wo rk) 07/31/2022 Office Visit Transplant Tony Rubalcava M.B., Sydnie, Mukund [address] [place] [address] [phone] (Wo rk) 07/31/2022 Appointment Radiology Tony Rubalcava M.B., Sydnie, Mukund [address] [place] [address] [phone] (Wo rk) 08/01/2022 Office Visit Transplant Tony Rubalcava M.B., Sydnie, Mukund [address] [place] [address] [phone] (Wo rk) 08/01/2022 Clinical Support Transplant Tony Rubalcava M.B., Sydnie, Mukund [address] [place] [address] [phone] (Wo behzad) documented as of this encounter Visit Diagnoses Not on filedocumented in this encounter Additional Health Concerns Assessment Noted Time PHQ-9 Depression Total Score: 4 01/30/2019 12:13 PM CD T documented as of this encounter
--- OUTSIDE RECORDS SUMMARY | 2022-05-25 13:18 | XMS_ITS | Encounter Summary ---
:1960 Author Organization [facility] Address [address] [place] [address] Care Team Providers Name Role Phone Unavailable Primary Care Provider Unavailable Encounter Details Date Type Department Care Team Description 05/31/2019 Anesthesia Event RST ROMB MAIN OR Isma Case D.O. [address] [place] [phone] [address] [place] [address] [place] [address] Anesthesia Record Procedure Summary Procedure Name Responsible Anesthesia Start Anesthesia Stop Anesthesiologist Time Time Right Isma Case D.O. 05/31/19 0850 05/31/19 1 150 brachio-axillary arterio-venous graft thromboembolectomy, Balloon angioplasty of venous anastomosis (Right) Events Date Time Event Comment 05/31/2019 0850 An Start Machine/Equipmen t Checked Infection Precautions Foll owed Procedure/Site Verified NPO Sta tus Verified Supine Standard ASA Mon itors Applied 0859 In Room 0906 An Induction 0911 An Intubation 0912 Turnover to Proceduralist 0938 Proc Start 1136 Proc Fin 1138 Turnover to ANE Staff 1142 Airway Removal Criteria Met 1142 Extubation/Airway Removed 1144 an stop data 1146 Out of Room 1150 An End I completed my h andoff to the receiving staff during [facility] ch we 1. Identified the patient 2. Ident ified the responsible provider 3. Revi ewed the pertinent medical history 4. Discussed the surgical course 5. Review ed intra-op anesthesia management and i ssues during anesthesia 6. Set expectati ons for post-procedure period 7. Allowe d opportunity for questions and ac knowledgement of understanding. Name Total fentanyl injection 50 mcg/mL 175 mcg lidocaine 2% (mg) injection 100 mg propofol 10 mg/mL 200 mg propofol 10 mg/mL infusion 784.04 mg succinylcholine 20 mg/mL injection 140 mg phenylephrine 100 mcg/mL injection 300 mcg ePHEDrine PF 5 mg/mL syringe injection 15 mg ondansetron 4 mg/2 mL injection 4 mg ceFAZolin 2 g dexamethasone 4 mg/mL injection 4 mg heparin 1,000 units/mL injection 7,000 Units droperidol 2.5 mg/mL injection 0.625 mg plasmalyte-A free drip 700 mL Agents No agents on file. Blood No blood administrations on file. Lines, Drains, and Airways Type Details Placement Removal Hemodialysis AV Access Placement Date: 05/06/19 05/06/19 0000 by (present upon arrival to Xin Proctor, pacu) R.NDavi Retired (Do not use) Placement Date: 08/24/03 08/24/03 0000 by 0 09/16/19 1422 by Hemodialysis AV Access ([place], [place]); Elvia Collins T aylor, Katherine Removal Date: 09/16/19; Camron Mascorro R.NDavi Removal Time: 1422 Hemodialysis AV Access Placement Date: 02/10/19 1341 by 09/15/19 1350 by 02/10/19; Placement Noelle Fink Bartelt, J ennifer Time: 1341; Removal RRalf Bruno, R.N. Date: 09/15/19; Removal Time: 1350 Hemodialysis Catheter Placement Date: 05/05/19 1000 by 09/16/19 1200 by 05/05/19; Placement Zoraida Rosenberg R.N. Taylor, Katherine Time: 1000; Catheter Ludwin RRalf Length (cm): 22 cm; Secured: Sutured, Transparent dressing; Removal Date: 09/16/19; Removal Time: 1200 Hemodialysis AV Access Placement Date: 05/06/19 0000 by 04/07/22 0000 by 05/06/19; Removal Date: Harini Lim, Roger ett, [place] Belle, 04/07/22 (duplicate LDA) R.N. R.N. (RETIRED) Incision 05/06/19; 1152; Arm; 05/06/19 1152 by 9 2351 by Right, Upper; Stephanie Menjivar PRM, Manyang, Christina WNMichelle NONADH 3-08/[id number]; R.N. M, D.N.P., R .N. 05/31/19; 2351; Old auxillary incision and medial elbow incision from previous procedures. New LDA for new surgcial procedure. Peripheral IV Placement Date: 05/30/19 1514 by 09/15/19 1349 b y 05/30/19; Placement Paul Vaughan Jennifer Time: 1514; Catheter J IV, R.N. L, R.N. Size: 18 G; Orientation: Left; Location: Wrist; Site Prep: Chlorhexidine (Preferred); Insertion Attempts: 1; Removal Date: 09/15/19; Removal Time: 1349; Removal Reason: No longer in place ETT Placement Date: 05/31/19 0911 by 05/31/19 1145 b y 05/31/19; Placement Vaughn Larios Chopp, Jill, R.N. Time: 910 (created via RELIEF MAP MODELER, R PROGRAMMER, DNAP procedure documentation); Mask Ventilation: Oral/Nasal airway needed; Type: Standard ETT; Single Lumen Tube Size: 7 mm; Cuffed: Yes; Location: Oral; Removal Date: 05/31/19; Removal Time: 1145 (RETIRED) Incision 05/31/19; 1148; Arm; 05/31/19 1148 by 0 1422 by Mid; 09/15/19; 1422 Lakshmi Wells Bartelt, Jennifer R.N. L, R.N. documented in this encounter Social History Tobacco Use Types Packs/Day Years Used Date Smoking Tobacco: Every Day Cigarettes 10 Smokeless Tobacco: Never Alcohol Use Standard Drinks/Week [...] How often do you attend voodoo or advent 1 to 4 times per [...] encounter OR Notes Anesthesia Postprocedure Evaluation - Nolan Salomon M.D. 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 Responsible Provider: Isma Case D.O. Anesthesia Type: general ASA Status: Not recorded Anesthesia Type: general Last vitals Vitals Value Taken Time BP 128/79 05/31/2019 12:15 PM Temp 36.8 ??C 05/31/2019 12:02 PM Pulse 76 05/31/2019 12:20 PM Resp 14 05/31/2019 12:20 PM SpO2 98 % 05/31/2019 12:20 PM Vitals shown include unvalidated device data. [...] Hydration status: euvolemic Anesthesia Procedure Notes - Vaughn Larios APRN, CRNA, DNAP - 05/31/2019 11:54 AM CDTAssociated Order(s): Airway Airway Date/Time: 05/31/2019 9:11 AM Performed by: Vaughn Larios APRN, CRNA, DNAP Authorized by: Isma Case D.O. Patient location during procedure: OR / Procedure Area PROCEDURE DETAILS: Mask difficulty assessment: oral/nasal airway needed Final airway type: video laryngoscope Laryngeal Manipulation: no Final best view of glottic structures - Cormack/Lehane Score: grade 1 ETT location: oral VL device: glide scope Purchase scope blade size: 4 Adult tube size: 7 Adult ETT distance at teeth/gum: 23 Oral tube type: standard ETT Cuffed: yes [...] event: no complications Anesthesia Preprocedure Evaluation - Isma Case D.O. 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 Pertinent components of the patient's history including [...] Other (+) Complication Kidney Transplant (HCC) (+) Thombosis Arteriovenous Fistula Initial (HCC) (+) Transplant Renal (HCC) OBJECTIVE PHYSICAL EXAMINATION Airway (HEENT) Mallampati: II Cardiovascular Cardiovascular Assessment: cardiovascular normal Pulmonary Pulmonary Assessment: Non labored General / Constitutional Constitutional Assessment: Obese General State of Health:: calm ASSESSMENT / PLAN ANESTHESIA PLAN ASA: 4 - Emergent Anesthesia Plan: general Patient seen and allergies reviewed, anesthesia plan and risks discussed directly with patient /legal guardian or through an sign language interpreter.. Risks/Benefits/Alternatives of Blood transfusion discussed with patient [...] 06/01/2022 Telemedicine Pharmacy An Nicholas APRN, C.NDoc, Michelle.N.P., M.S.N. [address] [place] [address] [phone] (Wo rk) 07/31/2022 Lab Laboratory Medicine Tony Rubalcava M. B., Sydnie, Mukund [address] [place] [address] [phone] (Wo rk) 07/31/2022 Lab Laboratory Medicine Tony Rubalcava M. B., Sydnie, Mukund [address] [place] [address] [phone] (Wo rk) 07/31/2022 Office Visit Transplant Tony Rubalcava M.B., Sydnie, MDebra [address] [place] [address] [phone] (Wo rk) 07/31/2022 Appointment Radiology Tony Rubalcava M.B., ChBurke, MDebra [address] [place] [address] [phone] (Wo rk) 08/01/2022 Office Visit Transplant Tony Rubalcava M.B., Sydnie, MDebra [address] [place] [address] [phone] (Wo rk) 08/01/2022 Clinical Support Transplant Tony Rubalcava M.B., Sydnie, MDebra [address] [place] [address] [phone] (Wo rk) documented as of this encounter Procedures Procedure Name Priority Date/Time Associated Comments Diagnosis LDA ANE ENDOTRACHEAL Routine 05/31/2019 11:54 Res ults for this AIRWAY AM CDT procedure are i n the results section. documented in this encounter Results LDA ANE ENDOTRACHEAL AIRWAY (05/31/2019 11:54 AM CDT) Narrative Vaughn Larios APRN, CRNA, DNAP - 05/20 11:54 AM CDT Vaughn Larios APRN, CRNA, DNAP ? 05/31/2019 11:54 AM Airway Date/Time: 05/31/2019 9:11 AM Performed by: Vaughn Larios APRN, CRN A, DNAP Authorized by: Isma Case D.O. Patient location during procedure: OR / Procedure Area PROCEDURE DETAILS: Mask difficulty assessment: oral/nasal a irway needed Final airway type: video laryngoscope Laryngeal Manipulation: no ?? Final best view of glottic structures - Cormack/Lehane Score: grade 1 ETT location: oral VL device: glide scope Purchase scope blade size: 4 Adult tube size: 7 Adult ETT distance at teeth/gum: 23 Oral tube type: standard ETT Cuffed: yes [...] outcome: successful ?? Airway event: no complications Isma Case D.O. ANESTHESIA ORDERABLES documented in this encounter Visit Diagnoses Not on filedocumented in this encounter Administered Medications Inactive Administered Medications - up to 3 most recent administrations Medication Order MAR Action Action Date Dose Rate Site ceFAZolin injection (ANCEF) Given 05/31/2019 9:19 AM CDT 2 g As needed, Starting on 05/31/19 at 0919, Anesthesia Intra-op dexamethasone injection (DECADRON) Given 05/31/2019 9:28 AM CDT 4 mg As needed, Starting on 05/31/19 at 0928, Anesthesia Intra-op droperidol injection (INAPSINE) Given 05/31/2019 11:01 AM CDT 0.625 mg intravenous, As needed, Starting on 05/31/19 at 1101, Anesthesia Intra-op electrolyte-A solution (PLASMA-LYTE A) New Bag 05/31/2019 8:50 AM CDT intravenous, Continuous Infusion: Per Instructions PRN, Starting on 05/31/19 at 0850, Anesthesia Intra-op ePHEDrine (PF) injection Given 05/31/2019 9:47 AM CDT 5 mg intravenous, As needed, Starting on 05/31/19 at 0936, Anesthesia Intra-op Given 05/31/2019 9:36 AM CDT 5 mg Given 05/31/2019 9:25 AM CDT 5 mg fentaNYL injection (SUBLIMAZE) Given 05/31/2019 11:01 AM CDT 25 mcg intravenous, As needed, Starting on 05/31/19 at 0906, Anesthesia Intra-op Given 05/31/2019 9:47 AM CDT 50 mcg Given 05/31/2019 9:20 AM CDT 50 mcg heparin (porcine) 1,000 unit/mL Given 05/31/2019 10:30 AM CDT 7, 000 Units injection As needed, Starting on 05/31/19 at 1030, Anesthesia Intra-op lidocaine (PF) (cardiac) injection Given 05/31/2019 9:06 AM CDT 100 mg intravenous, As needed, Starting on 05/31/19 at 0906, Anesthesia Intra-op ondansetron (PF) injection (ZOFRAN) Given 05/31/2019 9:28 AM CDT 4 mg intravenous, As needed, Starting on 05/31/19 at 0928, Anesthesia Intra-op phenylephrine injection Given 05/31/2019 9:47 AM CDT 100 mcg intravenous, As needed, Starting on 05/31/19 at 0925, Anesthesia Intra-op Given 05/31/2019 9:36 AM CDT 100 mcg Given 05/31/2019 9:25 AM CDT 100 mcg propofol 10 mg/mL infusion Rate/Dose 05/31/2019 50 mcg/kg/min 29.3 m L/hr (DIPRIVAN) Change 10:37 AM CDT intravenous, Continuous Infusion: Per Instructions PRN, Starting on 05/31/19 at 0915, Anesthesia Intra-op Rate/Dose Change 05/31/2019 9:46 AM CDT 75 mcg/kg/min 44 mL/hr New Bag 05/31/2019 9:15 AM CDT 100 mcg/kg/min 58.6 mL/hr propofol injection (DIPRIVAN) Given 05/31/2019 9:20 AM CDT 50 mg intravenous, As needed, Starting on 05/31/19 at 0906, Anesthesia Intra-op Given 05/31/2019 9:06 AM CDT 150 mg succinylcholine (PF) injection (ANECTINE ) Given 05/31/2019 9:06 AM CDT 140 mg intravenous, As needed, Starting on 05/31/19 at 0906, Anesthesia Intra-op documented in this encounter Additional Health Concerns Assessment Noted Time PHQ-9 Depression Total Score: 4 01/30/2019 12:13 PM CD T documented as of this encounter
--- OUTSIDE RECORDS SUMMARY | 2022-05-25 13:18 | XMS_ITS | Encounter Summary ---
:1960 Author Organization [facility] Address [address] [place] [address] Care Team Providers Name Role Phone Unavailable Primary Care Provider Unavailable Reason for Visit Reason Onset Date Comments Nicotine Dependence 07/08/2019 Encounter Details Date Type Department Care Team Description 07/08/2019 Clinical Communication Department of Veronique Bray cotine Dependence Nicotine Chauncey Ribera, M.A., [facility] [address] [place] [address] in [facility] [phone] [place] [address] [place], [place] (Work) [phone] Social History Tobacco Use Types Packs/Day Years [...] often do you attend roman catholic or spiritism 1 to 4 times per [...] Nicholas APRN, C.N.P., D.N.P., M.S.N. [address] [place] [address] [phone] (Nicolas wen) 07/31/2022 Lab Laboratory Medicine Tony Rubalcava M. B., ChBurke, M.D. [address] [place] [address] [phone] (Nicolas wen) 07/31/2022 Lab Laboratory Medicine Tony Rubalcava M. B., ChDaviBDavi, M.D. [address] [place] [address] [phone] (Nicolas wen) 07/31/2022 Office Visit Transplant Tony Rubalcava M.B., ChBurke, MElvia. [address] [place] [address] [phone] (Nicolas wen) 07/31/2022 Appointment Radiology Tony Rubalcava M.B., Mukund Otoole [address] [place] [address] [phone] (Wo behzad) 08/01/2022 Office Visit Transplant Tony Rubalcava M.B., Mukund [place] [address] [place] [address] [phone] (Nicolas wen) 08/01/2022 Clinical Support Transplant Tony Rubalcava M.B., Mukund [place] [address] [place] [address] [phone] (Nicolas wen) documented as of this encounter Visit Diagnoses Not on filedocumented in this encounter Additional Health Concerns Assessment Noted Time PHQ-9 Depression Total Score: 4 01/30/2019 12:13 PM CD T documented as of this encounter
--- OUTSIDE RECORDS SUMMARY | 2022-05-25 13:18 | XMS_ITS | Encounter Summary ---
:1960 Author Organization [facility] Address [address] [place] [address] Care Team Providers Name Role Phone Unavailable Primary Care Provider Unavailable Reason for Visit Reason Onset Date Comments Nicotine Dependence 06/26/2019 Encounter Details Date Type Department Care Team Description 06/26/2019 Clinical Communication Department of Veronique Bray cotbatsheva Dependence Nicotine Chauncey Ribera, M.A., [facility], [address] [place] [address] in [facility] [phone] [place] [address] [place], [place] (Work) [phone] Social History Tobacco Use Types Packs/Day Years [...] How often do you attend religion or yazidism 1 to 4 times per [...] An Nicholas APRN, C.N.P., D.N.P., M.S.N. [address] [place] [address] [phone] (Nicolas wen) 07/31/2022 Lab Laboratory Medicine Tony Rubalcava M. B., ChBurke, M.D. [address] [place] [address] [phone] (Nicolas wen) 07/31/2022 Lab Laboratory Medicine Tony Rubalcava M. B., ChDaviBDavi, M.D. [address] [place] [address] [phone] (Nicolas wen) 07/31/2022 Office Visit Transplant Tony Rubalcava M.B., ChBurke, MElvia. [address] [place] [address] [phone] (Nicolas wen) 07/31/2022 Appointment Radiology Tony Rubalcava M.B., Mukund Otoole [address] [place] [address] [phone] (Wo behzad) 08/01/2022 Office Visit Transplant Tony Rubalcava M.B., Mukund Otoole [address] [place] [address] [phone] (Nicolas wen) 08/01/2022 Clinical Support Transplant Tony Rubalcava M.B., Mukund Otoole [address] [place] [address] [phone] (Nicolas wen) documented as of this encounter Visit Diagnoses Not on filedocumented in this encounter Additional Health Concerns Assessment Noted Time PHQ-9 Depression Total Score: 4 01/30/2019 12:13 PM CD T documented as of this encounter
--- OUTSIDE RECORDS SUMMARY | 2022-05-25 13:18 | XMS_ITS | Encounter Summary ---
:1960 Author Organization [facility] Address 200 [place] [address] Care Team Providers Name Role Phone Unavailable Primary Care Provider Unavailable Encounter Details Date Type Department Care Team Description 06/02/2019 Orders Only Department of Urology Geraldo Spear eteral Stent Exchange in Catrachita Hernandez M.D. (Primary Dx) [address] [place] [address] [phone] Social History Tobacco Use Types Packs/Day Years [...] How often do you attend faith or quaker 1 to 4 times per [...] Nicholas APRN C.N.P., D.N.P., M.S.N. [address] [place] [address] [phone] (Wo rk) 07/31/2022 Lab Laboratory Medicine Tony Rubalcava M. B., Sydnie, MDebra [address] [place] [address] [phone] (Wo rk) 07/31/2022 Lab Laboratory Medicine Tony Rubalcava M. B., ChBurke, MDebra [address] [place] [address] [phone] (Wo rk) 07/31/2022 Office Visit Transplant Tony Rubalcava M.B., Sydnie, MDebra [address] [place] [address] [phone] (Wo rk) 07/31/2022 Appointment Radiology Tony Rubalcava M.B., Ch.BMukund Tomlinson [address] [place] [address] [phone] (Wo rk) 08/01/2022 Office Visit Transplant Tony Rubalcava M.B., Mukund Otoole [address] [place] [address] [phone] (Wo rk) 08/01/2022 Clinical Support Transplant Tony Rubalcava M.B., Sydnie, Mukund [address] [place] [address] [phone] (Wo rk) documented as of this encounter Visit Diagnoses Diagnosis Ureteral Stent Exchange - Primary documented in this encounter Additional Health Concerns Assessment Noted Time PHQ-9 Depression Total Score: 4 01/30/2019 12:13 PM CD T documented as of this encounter
--- OUTSIDE RECORDS SUMMARY | 2022-05-25 13:18 | XMS_ITS | Encounter Summary ---
:1960 Author Organization [facility] Address [address] [place] [id number] Care Team Providers Name Role Phone Unavailable Primary Care Provider Unavailable Encounter Details Date Type Department Care Team Description 06/02/2019 Clinical Communication Department of Urology Geraldo Spear in [place] Hernandez M.D. [address] [place] [id number] [phone] Social History Tobacco Use Types Packs/Day Years [...] How often do you attend christian or alevism 1 to 4 times per [...] this encounter Miscellaneous Notes Telephone Encounter - Harini Rivera - 06/03/2019 9:42 AM CDT She said when she calls back on 07/03 she will relay the information on if she wants to do the urines locally or here. Thank you Telephone Encounter - Harini Rivera - 06/03/2019 9:13 AM CDT I called patient regarding the stent exchange. Patient wants to wait until she returns back from hertrip on 07/03. Patient stated that she will call our appointment office when she returns to set a date for the stent exchange. Thank you documented in this encounter Plan of Treatment Upcoming Encounters Date Type Specialty Care Team Description 06/01/2022 Telemedicine Pharmacy An Nicholas APRN, C.N.P., D.N.P., M.S.N. [address] [place] [address] [phone] (Wo rk) 07/31/2022 Lab Laboratory Medicine Tony Rubalcava M. B., Syd[place], MDebra [address] [place] [address] [phone] (Wo rk) 07/31/2022 Lab Laboratory Medicine Tony Rubalcava M. B., [place], [place] [address] [place] [address] [phone] (Wo rk) 07/31/2022 Office Visit Transplant Tony Rubalcava M.B., Sydnie, [place] [address] [place] [address] 55 [phone] (Wo behzad) 07/31/2022 Appointment Radiology Tony Rubalcava M.B., Sydnie, [place] [address] [place] [address] 55 [phone] (Nicolas rk) 08/01/2022 Office Visit Transplant Tony Rubalcava M.B., Sydnie, MDebra [address] [place] [address] 55 [phone] (Wo rk) 08/01/2022 Clinical Support Transplant Tony Rubalcava M.B., Sydnie, MDebra [address] [place] [address] [phone] (Wo rk) documented as of this encounter Visit Diagnoses Not on filedocumented in this encounter Additional Health Concerns Assessment Noted Time PHQ-9 Depression Total Score: 4 01/30/2019 12:13 PM CD T documented as of this encounter
--- OUTSIDE RECORDS SUMMARY | 2022-05-25 13:18 | XMS_ITS | Encounter Summary ---
:1960 Author Organization [facility] Address [address] [place] [id number] Care Team Providers Name Role Phone Unavailable Primary Care Provider Unavailable Reason for Visit Reason Comments Dialysis Fistula oclussion Encounter Details Date Type Department Care Team Description 05/30/2019 - Hospital Encounter [facility] Smita George M.D., M.P.H. [address] [place] [phone] Thombosis Arteriovenous Fistula Initial (HCC) (Primary Dx); 06/06/2019 [facility] [address] [place] [phone] Failure Renal End Stage (HCC); [facility], Guillermo Cobos M.B.BDaviSDavi [address] [place] [phone] Complication Kidney Transplant (HCC); [facility], Transplant R enal (HCC); Fifth Floor Anticoagulant Therapy ; [address] [place] [address] Nicotine Dependence Cigarett es [place] [phone] Social History Tobacco Use Types Packs/Day Years Used Date Smoking Tobacco: Every Day Cigarettes 0.5 45 S tarted: 08/20/1973 Smokeless Tobacco: Never Tobacco Cessation: Ready to Quit: Yes; C ounseling Given: Yes Alcohol Use Standard Drinks/Week Comments Not Currently [...] How often do you attend [facility] 1 to 4 times per [...] Sign Reading Time Taken Comments Blood Pressure 149/84 06/06/2019 12:23 PM CDT Pulse 72 06/06/2019 12:23 PM CDT Temperature 36.7 ??C (98.1 ??F) 06/06/2019 12:15 PM CDT Respiratory Rate 18 06/06/2019 12:23 PM CDT Oxygen Saturation 99% 06/06/2019 12:24 PM CDT Inhaled Oxygen Concentration - - Weight 97.3 kg (214 lb 8.1 oz) 06/06/2019 12:15 PM CDT Height 164 cm (5' 4.57) 05/30/2019 11:31 AM CDT Body Mass Index 36.18 05/30/2019 11:31 AM CDT documented in this encounter Discharge Summaries Farzana Amaya APRN, C.NJohan. - 06/06/2019 8:00 AM CDT DISCHARGE SUMMARY BRIEF OVERVIEW Discharge Provider: Guillermo Yu M.B.B.S. Primary Care Provider: Elena Morataya PA-C [address] [place], [place] [id number] Primary Care Provider Primary Care Provider Admission Date: 05/30/2019 Discharge Date: 06/06/2019 PRINCIPAL DIAGOSIS Thombosis Arteriovenous Fistula Initial (HCC) SECONDARY DIAGNOSES Principal Problem: Thombosis Arteriovenous Fistula Initial (HCC) Active Problems: Obstruction Ureter Complication Kidney Transplant (HCC) Chronic Kidney Disease Stage 5 Glomerular Filtration Rate Less Than 15 (HCC) Transplant Renal (HCC) Resolved Problems: * No resolved hospital problems. * Surgery Information This Encounter Past Procedures (06/06/2018 to Today) Date Procedures Providers Location 05/31/2019 Right brachio-axillary arterio-venous graft thromboembolectomy, Balloon angioplasty of venous anastomosis, FISTULOGRAM WITH OR WITHOUT INTERVENTION UPPER EXTREMITY Guillermo Yu M.B.B.S.Jakob Rivera M.D., M.P.H.Tre Bear M.D.Soukup, Dylan S, M.D. RST ROMB OR DISCHARGE DISPOSITION Home or Self Care [1] ACTIVE ISSUES REQUIRING FOLLOW-UP A follow-up appointment with your primary care provider (PCP) should be scheduled within 4-7 days after dismissal from the hospital. This will give you the opportunity to discuss your hospital course and share any important current care needs with your PCP. A copy of the discharge summary has been faxed for their review. You will return in 4-6 weeks at which time you will have an upper extremity ultrasound prior to yourappointment at the dialysis access clinic. These appointments will be mailed to your home. Should you not receive them or if you need to reschedule your appointment, please contact the dialysis access clinic by calling [phone]. Should you need to contact Dr. Yu or his service, you may do so through his medical reimbursement manager at during normal business hours of 8 to 5 Sunday through Sunday or, in an emergency situation, through the [facility] reaming machine operator at . Vascular medicine recommended outpatient follow-up at their thrombophilia Clinic, this request has been placed and you will be contacted with these appointments. None OUTPATIENT FOLLOW UP Future Appointments Date Time Provider Department Center 06/24/2019 9:45 AM US ROGO 04 RM 04 RAD US ROGO4 RST Spec 06/24/2019 11:30 AM NEP DLS NURSE 01 ROEI NEP ROEI RST Spec TEST RESULTS PENDING AT DISCHARGE DETAILS OF HOSPITAL STAY REASON FOR ADMISSION Failure Renal End Stage (HCC) Complication Kidney Transplant (HCC) Transplant Renal (HCC) Thombosis Arteriovenous Fistula Initial (HCC) HOSPITAL COURSE Ms. Wray was admitted to Dr. Yu's surgical service from an outside facility after it was noted that her dialysis fistula no longer had a palpable thrill present. Ultrasound performed on 05/30/2019 confirmed interval occlusion of the right brachial artery to axillary vein hemodialysis graft. She proceeded to the operating room on 05/31/2019 where she underwent right upper extremity AV fistulogram. She tolerated the procedure well and was transferred to the vascular progressive care unit postoperatively. Pain was managed with intravenous pain medications, which was later transitioned to oral pain medications with adequate control. Right upper extremity incision ell approximated, no erythema or drainage. No sutures to be removed. Right upper extremity distal peripheral vessel with palpable radial pulse. Palpable thrill noted over the right upper extremity AV fistula. Neurological exam was within normal limits. At the time of dismissal, she was tolerating a general dialysis diet and ambulating independently. Aspirin was continued throughout the perioperative course and should be continued lifelong. Warfarintherapy was resumed on 05/31/2019; warfarin therapy should be continued for at least 3 months or until outpatient follow-up with the thrombophilia team. Goal INR 2.5-3.5. See post discharge recommendations for details. Ms. Wray was continued on previous statin therapy. Continue to follow-up with primary care for ongoing monitoring. Warfarin (Coumadin) Therapy: You are being discharged on warfarin [Coumadin], a medication that will help you keep your blood thin and prevent clots. It is important to keep your Coumadin at a target level so your blood is not toothink or too thick. Anticipated duration of Coumadin therapy: Until follow-up. Coumadin therapy (Date - INR target/dose): 06/02/2019: 1.4 / 5.0 mg 06/03/2019: 1.5 / 5.0 mg 06/04/2019: 1.7 / 6.0 mg 06/05/2019: 1.8 / 7.5 mg 06/06/2019: 2.5 / 5.0 mg COUMADIN WARNIN. Coumadin is an anticoagulant, a medication which decreases your body's ability to clot your bloodand therefore, may cause bleeding. Signs or symptoms of bleeding may include, but are not limited to, the following: black-colored bowel movements, rectal bleeding, new bleeding while brushing your teeth, nose bleeds, or increased bruising. If you develop any of these signs or symptoms, you need to seek medical attention. 2. Follow a consistent vitamin K diet. 3. Your target INR is 2.5-3.5. 4. The reason you need to take Coumadin: Right AV graft patency. 5. Only take aspirin or NSAID medications if your doctor prescribes them. 6. Coumadin requires follow-up of your INR. You will need to have your INR checked within 2-4 days of discharge with your primary care provider. CONSULTS ORDERED DURING THIS ADMISSION IP CONSULT TO VASCULAR SURGERY IP CONSULT TO NEPHROLOGY IP CONSULT TO HEAD OF SALES IP CONSULT TO INTERNAL MEDICINE NICOTINE DEPENDENCE IP CONSULT TO VASCULAR MEDICINE IP CONSULT TO CARE MANAGEMENT IP CONSULT TO CARE MANAGEMENT Pertinent Diagnostic Results: Us Hemodialysis Fistula-graft Right Result Date: 06/03/2019 Impression: 1. Right brachial artery to axillary vein fistula graft is patent without significant stenosis and with normal flow volume. 2. Focal stenosis of the right axillary vein with flow velocitiesup to 556 cm/s. Us Hemodialysis Fistula-graft Right Result Date: 05/30/2019 Impression: 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 Thefindings were discussed with the referring physician, Dr. Rushing, pager [phone], at 1445 hours today. Bld Urea Nitrog(BUN), S Date Value Ref Range Status 06/05/2019 22 (H) 6 - 21 mg/dL Final Creatinine, S Date Value Ref Range Status 06/05/2019 4.26 (H) 0.59 - 1.04 mg/dL Final Recent Results (from the past 24 hour(s)) CBC without Differential Collection Time: 06/06/19 5:06 AM Result Value Hemoglobin 8.6 (L) Hematocrit 27.9 (L) Erythrocytes 2.91 (L) MCV 95.9 RBC Distrib Width 15.8 Platelet Count 140 (L) Leukocytes 7.0 Heparin Anti-Xa Assay Collection Time: 06/06/19 5:06 AM Result Value Heparin Anti-Xa, P 0.49 PT (Prothrombin Time) with INR Collection Time: 06/06/19 5:06 AM Result Value Prothrombin Time, P 27.5 (H) INR 2.5 CONDITION AT DISCHARGE stable Code Status at Discharge: FULL Discharge instructions were provided to the patient and caregiver(s). documented in this encounter Medications at Time [...] (EMLA) 2.5-2.5 % cream topically as directed. mycophenolate Take 1 capsule (250 180 capsule 3 03/14/2019 0 03/05/2020 (CELLCEPT) 250 mg mg total) by mouth 2 capsule (two) times a day. Do not break, cut, or open capsules. nebivolol (BYSTOLIC) 10 Take 1 tablet (10 mg 90 tablet 3 09/02/2019 mg tabletIndications: total) by mouth Transplant Renal (HCC) daily. predniSONE (DELTASONE) Take 5 mg by mouth 0 09/16/2019 5 mg tablet daily. rosuvastatin (CRESTOR) Take 1 tablet (5 mg 90 tablet 3 12/1812/29/2019 5 mg tablet total) by mouth daily. sevelamer (RENVELA) 800 Take 1 tablet (800 270 tablet 3 06/2107/17/2019 mg tablet mg total) by mouth 3 (three) times a day with meals. tacrolimus (PROGRAF) 1 Take 2 capsules (2 360 capsule 3 03/201812/08/2019 mg capsule mg total) by mouth 2 (two) times a day. nicotine (NICODERM CQ) Place 1 patch on the 14 patch 5 07/02/2019 7 mg/24 hr patch skin daily. Apply 14 mg patch daily for four to six weeks, then taper to 7 mg for two to six weeks until off. nicotine polacrilex Apply 1 lozenge (2 100 each 3 06/02/20 19 07/02/2019 (NICORETTE) 2 mg mg total) to cheek lozenge as needed for smoking cessation. multivitamin renal Take 1 tablet by 30 tablet 11 06/06/2019 09/22/2021 failure (DIALYVITE) mouth every evening. 100-1 mg tablet nicotine (NICODERM CQ) Apply 14 mg patch 14 patch 3 201809/15/2019 14 mg/24 hr patch daily for four to six weeks, then taper to 7 mg for two to six weeks until off. omeprazole (PriLOSEC) Take 1 capsule (40 60 capsule 11 201809/15/[address] capsule mg total) by mouth 2 (two) times a day before breakfast and dinner. predniSONE (DELTASONE) Take 1 tablet (5 mg 90 tablet 3 03/201807/10/2019 5 mg tablet total) by mouth daily. sennosides-docusate Take 2 tablets by 0 9 09/15/2019 sodium (SENOKOT-S) mouth at bedtime as 8.6-50 mg per tablet needed for constipation. warfarin (COUMADIN) 2 Goal INR 2.5-3.5. 90 tablet 3 019 08/14/2019 mg tablet 06/06/2019- 9: 5mg; 06/09/2019: Check INR and dose per PCP. documented as of this encounter Progress Notes Juventino Brooks M.D. - 06/06/2019 12:34 PM CDT SUBJECTIVE Shabnam Wray was seen and examined while receving intermittent hemodialysis personally by me. She reports having no symptoms of uremia or volume excess. The patient endorses no complaints I have reviewed the current medication list. OBJECTIVE Admission Weight: 97 kg Current Weight: 97.3 kg VITAL SIGNS Temperature: [36.5 ??C-36.7 ??C] 36.7 ??C Resp Rate: [16-18] 18 Blood Pressure: (107-191)/(63-101) 149/84 SpO2: [96 %-100 %] 99 % Pulse Rate: [62-79] 72 Intake/Output Summary (Last 24 hours) at 06/06/2019 1234 Last data filed at 06/06/2019 1208 Gross per 24 hour Intake 1425.1 ml Output 3200 ml Net -1774.9 ml PHYSICAL EXAM General appearance: alert, appears stated age and cooperative Lungs: clear to auscultation bilaterally Heart: regular rate and rhythm, S1, S2 normal, no murmur, click, rub or gallop Extremities: extremities normal, warm and well-perfused, AV graft thrill is readily palpable. Swelling has diminished. Hemodialysis Catheter Permanent (tunneled, implanted) Right Chest (Active) Placement Date/Time: 05/05/19 1000 Procedural Pause Completed: Yes Optimal Site Selected: Yes Catheter Time Out Checklist Completed: Yes Hand Hygiene Performed Prior to Insertion: Yes Site Prep: Chlorhexidine (Preferred) Site Prep Agent has Com... Number of days: 32 DIAGNOSTICS No results found. Lab results last 24 hours: Recent Results (from the past 24 hour(s)) CBC without Differential Collection Time: 06/06/19 5:06 AM Result Value Hemoglobin 8.6 (L) Hematocrit 27.9 (L) Erythrocytes 2.91 (L) MCV 95.9 RBC Distrib Width 15.8 Platelet Count 140 (L) Leukocytes 7.0 Heparin Anti-Xa Assay Collection Time: 06/06/19 5:06 AM Result Value Heparin Anti-Xa, P 0.49 PT (Prothrombin Time) with INR Collection Time: 06/06/19 5:06 AM Result Value Prothrombin Time, P 27.5 (H) INR 2.5 ASSESSMENT / PLAN #1 ESRD, hemodialysis status, in center hemodialysis #2 Thrombosis AV graft, now patent #3 Therapeutic INR She is undergoing dialysis satisfactorily. Can be dismissed following hemodialysis. Jefferson Farfan M.D. - 06/06/2019 8:30 AM CDT Thombosis Arteriovenous Fistula Initial (HCC) SUBJECTIVE Events over the past 24 hours: No acute events overnight. She has remained afebrile and hemodynamically stable. Her INR is 2.5 from 1.8 this morning. She is otherwise doing well, tolerating p.o. intake, with good urine output from ambulating without issue. She is scheduled for dialysis today and will discharge following her treatment. OBJECTIVE VITAL SIGNS Temperature: [36.5 ??C-36.7 ??C] 36.7 ??C Resp Rate: [16-18] 18 Blood Pressure: (107-191)/(63-101) 149/84 SpO2: [96 %-100 %] 99 % Weight: [97.3 kg-99.8 kg] 97.3 kg BMI (Calculated): [36.2 kg/m??-37.1 kg/m??] 36.2 kg/m?? Pulse Rate: [62-79] 72 Respiratory Pattern: Regular (06/06/19 0830 : Gonzalo Pedroza R.N.) Respiratory Effort: Unlabored (06/04/19 0300 : Raiza Johnson, R.N.) I/O 06/05 0000 - 06/05 0000 - 06/06 2359 P.O. 680 300 Continuous Medications 301.2 109.5 Intermittent Medications 250 Total Intake(mL/kg) 981.2 (10) 659.5 (6.8) Urine (mL/kg/hr) 400 (0.2) 300 (0.2) Stool 0 Dialysis 2800 Total Output 400 3100 Net +581.2 -2440.5 Unmeasured Stool Occurrence 1 x Intake/Output Summary (Last 24 hours) at 06/06/2019 1232 Last data filed at 06/06/2019 1208 Gross per 24 hour Intake 1425.1 ml Output 3200 ml Net -1774.9 ml Constitutional Appearance: Normal appearance. HENT Head: Normocephalic and atraumatic. Mouth/Throat: Mouth: Mucous membranes are moist. Eyes Extraocular Movements: Extraocular movements intact. Conjunctiva/sclera: Conjunctivae normal. Neck Musculoskeletal: Normal range of motion. Cardiovascular Rate and Rhythm: Normal rate and regular rhythm. Pulmonary Effort: Pulmonary effort is normal. Abdominal Palpations: Abdomen is soft. Musculoskeletal Normal range of motion. Comments: RUE: Palpable thrill at site of AV graft in proximal RUE. Small area of erythema adjacentto prior surgical incision. RUE incision site is clean, dry, and intact. Skin General: Skin is warm and dry. Neurological General: No focal deficit present. Mental Status: She is alert and oriented to person, place, and time. Mental status is at baseline. Psychiatric Mood and Affect: Mood normal. Behavior: Behavior normal. LABORATORY STUDIES No results for input(s): NA, K, CL, CO2, MG, CALCIUM, GLUCOSE, HGBA1C, BUN, CREATININE, ALBUMIN, PREALBUMIN in the last 24 hours. Recent Labs 06/06/19 0506 WBC 7.0 HGB 8.6 L HCT 27.9 L PLT 140 L INR 2.5 PT 27.5 H Lines, Drains, and Airways Peripheral IV Peripheral IV Catheter 05/30/19 18 G Left Wrist 6d 21h Hemodialysis catheter Hemodialysis Catheter Permanent (tunneled, implanted) Right Chest 32d 2h Hemodialysis AV Access Retired (Do not use) Hemodialysis AV Access Right AV Fistula 5765d 11h Hemodialysis AV Access Right AV Fistula 31d 12h Hemodialysis AV Access Right AV Graft 31d 12h Hemodialysis AV Access Left AV Fistula 115d 22h Wound Incision 05/31/19 Arm Mid 6d 0h ASSESSMENT / PLAN Hospital Problems as of 06/06/2019 1. * (Principal) Thombosis Arteriovenous Fistula Initial (HCC) 2. Complication Kidney Transplant (HCC) 3. Chronic Kidney Disease Stage 5 Glomerular Filtration Rate Less Than 15 (HCC) 4. Transplant Renal (HCC) 5. Obstruction Ureter Ms. Wray is a 58 year old female with ESRD with prior kidney transplant, now requiring hemodialysis, who underwent right arm brachio-basilic AV graft using Propaten graft on 05/06. 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 She was admitted 7 days ago with AV graft thrombosis in the RUE and is now POD 6 s/p brachio-basilic AV graft thromboembolectomy and balloon angioplasty of the venous anastomosis. She is doing well this morning with palpable thrill in proximal arm over AV graft. Shehas remained in-hospital on heparin drip awaiting therapeutic INR on Warfarin. Her INR today was therapeutic at 2.5, so she can discharge later today following dialysis. PLAN ?? Continue Warfarin therapy as an outpatient with INR goal of 2.5-3.5. INR 2.5 today. ?? Discontinue heparin ?? Dialysis today (MWF dialysis) ?? Discharge following dialysis ?? Continue immunosuppressive medications for kidney transplant including Prograf 2mg BID, Cellcept 250mg BID, and Prednisone 5mg daily ?? Sevelamer 800mg dialy, Tums 1000mg with lunch and dinner, and Dialyvite 1 tab each evening per nephrology ?? Urology will perform stent exchange when she is an outpatient. Urinalysis and urine culture ordered in preparation for this procedure at Urology's request. ?? Diet: Regular diet (refusing renal diet) ?? Activity: as tolerated ?? VTE Prophylaxis: N/A due to therapeutic anti-coagulation ?? GI Prophylaxis: not indicated ?? Bowel Regimen: Senokot S ?? Indwelling Catheter: not applicable ?? Drain: not applicable ?? Pain: pain well-controlled on oral pain meds and Valium ?? Surgical Incision: incision clean, dry, intact ?? Antibiotics: perioperative antibiotics completed ?? Anticipated Disposition: Home tomorrow The above plan was discussed with Dr. Yu and Dr. Roger who are in agreement. Please do not hesitate to contact the [facility] service at pager #[phone] with any questions or concerns. Jefferson Farfan M.D. Pager: [phone] Ata Hayden M.D. - 06/06/2019 7:16 AM CDT NEPHROLOGY PROGRESS NOTE SUBJECTIVE No acute events overnight. INR at goal of 2.5 this AM. OBJECTIVE VITAL SIGNS Temperature: [36.5 ??C-36.7 ??C] 36.5 ??C Heart Rate: [75] 75 Resp Rate: [14-18] 16 Blood Pressure: (171-191)/(80-99) 182/94 SpO2: [96 %-99 %] 99 % Pulse Rate: [70-79] 70 Intake/Output Last 24 Hours: Intake/Output Summary (Last 24 hours) at 06/06/2019 0716 Last data filed at 06/06/2019 0614 Gross per 24 hour Intake 1090.71 ml Output 700 ml Net 390.71 ml PHYSICAL EXAM General: No acute distress. HEENT: Eyes are anicteric and noninjected. Moist mucus membranes. Skin: no rashes noted; healing surgical wound over RUE Heart: RRR, normal S1/S2, no murmurs, rubs, gallops. CV: graft with bruit Lungs: Normal WOB, symmetric chest rise. Lungs are CTAB, no wheezes or crackles. Abdomen: Soft, nontender. Extremities: Legs are warm/dry without edema. DIAGNOSTICS ASSESSMENT / PLAN Ms. Wray is a 58 y.o. female past medical history of ESRD the setting of uncontrolled hypertension requiring IHD on Sunday/Sunday/Sunday with previous renal transplant in 2008 which failed in 2016, 2 previous AV fistulas (one in the left upper extremity and another in the R upper extremity) with a recent right arm brachioaxillary AV graft (6 mm x 40 mm propaten graft) placed 05/06/2019, R ureteral obstruction s/p stenting, chronic right IJ thrombus, and hypertension. She has been on anticoagulation with warfarin since placement of the graft though her INR on admission was 1.6 despite being at 2.1 at discharge from the AV graft hospitalization. ?? She is hospitalized after the recent right upper extremity AV graft notably was lacking a thrill/bruit on Sunday at [facility] with subsequent ultrasound at [facility] revealing the graft thrombosed and there was perigraft fluid collection. She is now s/p successful thrombectomy and balloon angioplasty of the graft with resulting bruit/thrill. She remains hospitalized in the setting of warfarin administration with a goal INR of 2.5 and bridgewith heparin. Vascular medicine has decided to continue with warfarin vs. apixaban. ?? # ESRD secondary to uncontrolled hypertension, s/p renal transplant in 2007 s/p failure of transplant in 2017 on IHD MWF since # Thrombosed right arm brachioaxillary AV graft # History of ureteral obstruction s/p stenting # HTN # History of secondary hyperparathyroidism on Hectorol # Normocytic anemia, not on EPO or iron supplementation, transferrin saturation 28% and ferritin of 659 in April 2019 ?? Recommendations: - IHD today - renal dialysis diet - Continue mycophenolate 250 mg twice daily, tacrolimus 2 mg twice daily, and prednisone 5 mg daily - Dialyvite, one tablet each evening - Patient is due for ureteral stent exchange; urology to perform now as outpatient - OK to discharge from renal perspective Standard Recommendations: - Daily weights and strict I/Os - Maintain MAP>65 mmHg - Avoid all nephrotoxins, if possible (contrast dye, unnecessary antibiotics, NSAIDs) - Renally dose/adjust all medications for GFR Staffed with Nephrology B [place] [facility] Dr. Brooks. We will sign off as patient is discharging. Please contact the Nephrology B service pager at [phone] with any questions or concerns. Guido Hayden M.D. Internal Medicine, PGY-2 06/06/19 TOT Jefferson Farfan M.D. - 06/05/2019 1:54 PM CDT Thombosis Arteriovenous Fistula Initial (HCC) SUBJECTIVE Events over the past 24 hours: No acute events overnight. She has remained afebrile and hemodynamically stable. Her INR is 1.8 this morning from 1.7 yesterday. She continues to be disappointed with the slow progress being made on reaching therapeutic INR levels. She is otherwise doing well, tolerating PO intake with 1.0 L yesterday, urine output of 525cc, and ambulating without issue. She had 3.1 L removed yesterday during dialysis. OBJECTIVE VITAL SIGNS Temperature: [36.5 ??C-36.7 ??C] 36.7 ??C Heart Rate: [75] 75 Resp Rate: [12-14] 14 Blood Pressure: (157-183)/(78-99) 173/81 SpO2: [97 %-99 %] 99 % Weight: [98.3 kg] 98.3 kg BMI (Calculated): [36.5 kg/m??] 36.5 kg/m?? Pulse Rate: [73-84] 75 Respiratory Pattern: Regular (06/04/19299 : Raiza Johnson R.N.) Respiratory Effort: Unlabored (06/04/19299 : Raiza Johnson R.N.) I/O 06/04 0000 - 06/04 0000 - 06/05 2359 P.O. 1000 Continuous Medications 242.2 215.6 Intermittent Medications 290 Total Intake(mL/kg) 1532.2 (15.7) 215.6 (2.2) Urine (mL/kg/hr) 525 (0.2) 300 (0.2) Stool 0 Dialysis 3053 Total Output 3578 300 Net -2045.8 -84.4 Unmeasured Stool Occurrence 2 x Intake/Output Summary (Last 24 hours) at 06/05/2019 1354 Last data filed at 06/05/2019 1200 Gross per 24 hour Intake 957.79 ml Output 425 ml Net 532.79 ml Constitutional Appearance: Normal appearance. HENT Head: Normocephalic and atraumatic. Mouth/Throat: Mouth: Mucous membranes are moist. Eyes Extraocular Movements: Extraocular movements intact. Conjunctiva/sclera: Conjunctivae normal. Neck Musculoskeletal: Normal range of motion. Cardiovascular Rate and Rhythm: Normal rate and regular rhythm. Pulmonary Effort: Pulmonary effort is normal. Abdominal Palpations: Abdomen is soft. Musculoskeletal Normal range of motion. Comments: RUE: Palpable thrill at site of AV graft in proximal RUE. Small area of erythema adjacentto prior surgical incision. RUE incision site is clean, dry, and intact. Skin General: Skin is warm and dry. Neurological General: No focal deficit present. Mental Status: She is alert and oriented to person, place, and time. Mental status is at baseline. Psychiatric Mood and Affect: Mood normal. Behavior: Behavior normal. LABORATORY STUDIES Recent Labs 06/05/19 0351 NA 136 K 4.5 CL 95 L MG 2.0 CALCIUM 9.2 GLUCOSE 83 BUN 22 H CREATININE 4.26 H Recent Labs 06/05/19 0351 06/05/19 0350 WBC 6.9 -- HGB 8.9 L -- HCT 28.5 L -- PLT 141 L -- INR -- 1.8 PT -- 20.5 H Lines, Drains, and Airways Peripheral IV Peripheral IV Catheter 05/30/19 18 G Left Wrist 5d 22h Hemodialysis catheter Hemodialysis Catheter Permanent (tunneled, implanted) Right Chest 31d 3h Hemodialysis AV Access Retired (Do not use) Hemodialysis AV Access Right AV Fistula 5764d 12h Hemodialysis AV Access Right AV Fistula 30d 13h Hemodialysis AV Access Right AV Graft 30d 13h Hemodialysis AV Access Left AV Fistula 115d 0h Wound Incision 05/31/19 Arm Mid 5d 2h ASSESSMENT / PLAN Hospital Problems as of 06/05/2019 1. * (Principal) Thombosis Arteriovenous Fistula Initial (HCC) 2. Complication Kidney Transplant (HCC) 3. Chronic Kidney Disease Stage 5 Glomerular Filtration Rate Less Than 15 (HCC) 4. Transplant Renal (HCC) 5. Obstruction Ureter Ms. Wray is a 58 year old female with ESRD with prior kidney transplant, now requiring hemodialysis, who underwent right arm brachio-basilic AV graft using Propaten graft on 05/06. 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 She was admitted 6 days ago with AV graft thrombosis in the RUE and is now POD 5 s/p brachio-basilic AV graft thromboembolectomy and balloon angioplasty of the venous anastomosis. She is doing well this morning with palpable thrill in proximal arm over AV graftDavi Urbina in-hospital on heparin drip awaiting therapeutic INR on Warfarin. Current INR 1.8 from 1.7 yesterday. She is willing to stay another day so that her INR can be therapeutic above 2.0 prior to discharge. PLAN ?? Continue Warfarin therapy with INR goal of 2.5-3.5. INR 1.8 today. ?? Continue moderate intensity heparin nomogram until therapeutic INR reached ?? Continue immunosuppressive medications for kidney transplant including Prograf 2mg BID, Cellcept 250mg BID, and Prednisone 5mg daily ?? Sevelamer 800mg dialy, Tums 1000mg with lunch and dinner, and Dialyvite 1 tab each evening per nephrology ?? MWF dialysis ?? Nicotine dependence consult for smoking cessation ?? Urology will perform stent exchange when she is an outpatient. Urinalysis and urine culture ordered in preparation for this procedure at Urology's request. ?? Diet: Regular diet (refusing renal diet) ?? Activity: as tolerated ?? VTE Prophylaxis: N/A due to therapeutic anti-coagulation ?? GI Prophylaxis: not indicated ?? Bowel Regimen: Senokot S ?? Indwelling Catheter: not applicable ?? Drain: not applicable ?? Pain: pain well-controlled on oral pain meds and Valium ?? Surgical Incision: incision clean, dry, intact ?? Antibiotics: perioperative antibiotics completed ?? Anticipated Disposition: Home tomorrow The above plan was discussed with Dr. Yu and Dr. Roger who are in agreement. Please do not hesitate to contact the [facility] service at pager #[phone] with any questions or concerns. Jefferson Farfan M.D. Pager: [phone] Elena Mitchell Pharm.D., R.Ph. - 06/05/2019 8:00 AM CDT Warfarin Dosing Progress Note: More information: Shabnam Wray is a 58 y.o. female who was admitted to the hospital on 05/30/2019. Hospital Pharmacy has been consulted for inpatient warfarin management and monitoring. Warfarin Indication: Other (Comment) Other indication (comments): Arterio-Venous graft thrombosis prevention Type of therapy: Continuation Prior average daily dose: 2.3 Comorbidities: No known risk Are any of these comorbidities new with admission? No Are there any new medication interactions with admission? No Target INR: 2.5-3.5 Day of therapy: 5 and beyond Drug interactions include the following: Strong Potentiator (From admission, onward) None Moderate Potentiators (From admission, onward) Start Dose/Rate Route Frequency Ordered Stop 05/31/19 1700 acetaminophen tablet 1,000 mg (TYLENOL) 1,000 mg oral 4 times daily 05/31/19 1247 Potentiating (From admission, onward) Start Dose/Rate Route Frequency Ordered Stop 05/31/19 1700 acetaminophen tablet 1,000 mg (TYLENOL) 1,000 mg oral 4 times daily 05/31/19 1247 Enzyme Inducers (From admission, onward) None Binders (From admission, onward) Start Dose/Rate Route Frequency Ordered Stop 05/30/19 2130 sevelamer tablet 800 mg (RENVELA) 800 mg oral Daily 05/30/19 2116 07/18/19 1759 Vitamin K-Containing Medications (168h ago, onward) None Antiplatelets & Anticoagulants (168h ago, onward) Start Dose/Rate Route Frequency Ordered Stop 06/04/19 1700 warfarin tablet 6 mg (COUMADIN) 6 mg oral Once 06/04/19 0824 06/04/19 1755 06/03/19 1700 warfarin tablet 5 mg (COUMADIN) 5 mg oral Once 06/03/19 0810 06/03/19 1711 06/02/19 1700 warfarin tablet 5 mg (COUMADIN) 5 mg oral Once 06/02/19 1221 06/02/19 1810 06/01/19 1700 warfarin management (COUMADIN) oral Daily 05/31/19 1637 06/01/19 1700 warfarin tablet 4 mg (COUMADIN) 4 mg oral Once 06/01/19 0813 06/01/19 1718 05/31/19 1700 warfarin tablet 3 mg (COUMADIN) 3 mg oral Once 05/31/19 1423 05/31/19 1638 05/31/19 1400 heparin (porcine) 100 Units/mL in D5W 250 mL infusion 0-40 Units/kg/hr ?? 97 kg (Dosing Weight) 0-38.8 mL/hr intravenous Continuous 05/31/19 1358 05/31/19 1358 heparin (porcine) 1,000 unit/mL injection 5,800 Units 60 Units/kg ?? 97 kg (Dosing Weight) intravenous As needed 05/31/19 1358 05/31/19 1358 heparin (porcine) 1,000 unit/mL injection 2,900 Units 30 Units/kg ?? 97 kg (Dosing Weight) intravenous As needed 05/31/19 1358 05/30/19 1739 heparin (porcine) 1,000 unit/mL injection 5,800 Units 60 Units/kg ?? 97 kg (Dosing Weight) intravenous Once 05/30/19 1738 05/30/19 1806 INR reversal agents were not given. Warfarin Reversal Agent Administrations (last 168 hours) Vitamin K and K-Centra None FFP Administrations During Encounter (Filter: EAP GENERAL TRANSFUSE FFP Medications Shown) None Warfarin Administrations (last 168 hours) Date/Time Action Medication Dose 06/04/19 1755 Given warfarin tablet 6 mg (COUMADIN) 6 mg 06/03/19 1711 Given warfarin tablet 5 mg (COUMADIN) 5 mg 06/02/19 1810 Given warfarin tablet 5 mg (COUMADIN) 5 mg 06/01/19 1718 Given warfarin tablet 4 mg (COUMADIN) 4 mg 05/31/19 1638 Given warfarin tablet 3 mg (COUMADIN) 3 mg INR (no units) Date Value Status 06/05/2019 1.8 Final 06/04/2019 1.7 Final 06/03/2019 1.5 Final 06/02/2019 1.4 Final 06/01/2019 1.4 Final 05/31/2019 1.5 Final 05/30/2019 1.6 Final A/P: No new drug interactions noted. INR 1.8, up from 1.7 yesterday. INR remains slow to change despite giving increased doses compared to her prior home regimen of 2-4mg/day. Will increase warfarin to7.5 mg today. The pharmacist team will continue to follow patient's clinical progress daily until discharge from the hospital. ?? Elena Mitchell Pharm.D., R.Ph. ?? Contact [phone] with any questions about this note. Juventino Brooks M.D. - 06/04/2019 12:47 PM CDT SUBJECTIVE Shabnam Wray was seen and examined while receving intermittent hemodialysis personally by me. She reports having no symptoms of uremia or volume excess. She has no pain in her right extremity. The patient I have reviewed the current medication list. OBJECTIVE Admission Weight: 97 kg Current Weight: 97.3 kg VITAL SIGNS Temperature: [36.4 ??C-36.9 ??C] 36.9 ??C Heart Rate: [66] 66 Resp Rate: [12-16] 12 Blood Pressure: (115-178)/(64-88) 132/81 SpO2: [96 %-100 %] 97 % Pulse Rate: [62-75] 62 Intake/Output Summary (Last 24 hours) at 06/04/2019 1247 Last data filed at 06/04/2019 1214 Gross per 24 hour Intake 1277.92 ml Output 3753 ml Net -2475.08 ml PHYSICAL EXAM General appearance: alert, appears stated age and cooperative Lungs: clear to auscultation bilaterally Heart: regular rate and rhythm, S1, S2 normal, no murmur, click, rub or gallop Extremities: extremities normal, warm and well-perfused, Thrill and bruit av graft right arm. Hemodialysis Catheter Permanent (tunneled, implanted) Right Chest (Active) Placement Date/Time: 05/05/19 1000 Procedural Pause Completed: Yes Optimal Site Selected: Yes Catheter Time Out Checklist Completed: Yes Hand Hygiene Performed Prior to Insertion: Yes Site Prep: Chlorhexidine (Preferred) Site Prep Agent has Com... Number of days: 30 DIAGNOSTICS Lab results last 24 hours: Recent Results (from the past 24 hour(s)) PT (Prothrombin Time) with INR Collection Time: 06/04/19 4:22 AM Result Value Prothrombin Time, P 19.4 (H) INR 1.7 CBC without Differential Collection Time: 06/04/19 4:22 AM Result Value Hemoglobin 8.8 (L) Hematocrit 28.0 (L) Erythrocytes 2.95 (L) MCV 94.9 RBC Distrib Width 15.5 Platelet Count 135 (L) Leukocytes 6.8 Heparin Anti-Xa Assay Collection Time: 06/04/19 4:22 AM Result Value Heparin Anti-Xa, P 0.43 ASSESSMENT / PLAN #1 ESRD, hemodialysis status #2 Status post thrombectomy right AV graft Davis Valdes M.D. - 06/04/2019 11:51 AM CDT NEPHROLOGY PROGRESS NOTE SUBJECTIVE No acute events overnight. She is feeling well today but is frustrated her INR is not yet at goal. OBJECTIVE VITAL SIGNS Temperature: [36.4 ??C-36.7 ??C] 36.6 ??C Heart Rate: [66] 66 Resp Rate: [16] 16 Blood Pressure: (115-178)/(65-88) 129/65 SpO2: [96 %-100 %] 99 % Pulse Rate: [63-75] 67 Intake/Output Last 24 Hours: Intake/Output Summary (Last 24 hours) at 06/04/2019 1151 Last data filed at 06/04/2019 0811 Gross per 24 hour Intake 987.92 ml Output 700 ml Net 287.92 ml PHYSICAL EXAM General: No acute distress. HEENT: Eyes are anicteric and noninjected. Moist mucus membranes. Skin: no rashes noted; healing surgical wound over RUE Heart: RRR, normal S1/S2, no murmurs, rubs, gallops. CV: audible bruit over graft site on RUE Lungs: Normal WOB, symmetric chest rise. Lungs are CTAB, no wheezes or crackles. Abdomen: Soft, nontender. Extremities: Legs are warm/dry without edema. DIAGNOSTICS ASSESSMENT / PLAN Ms. Wray is a 58 y.o. female past medical history of ESRD the setting of uncontrolled hypertension requiring IHD on Sunday/Sunday/Sunday with previous renal transplant in 2007 which failed in 2016, 2 previous AV fistulas (one in the left upper extremity and another in the R upper extremity) with a recent right arm brachioaxillary AV graft (6 mm x 40 mm propaten graft) placed 05/06/2019, R ureteral obstruction s/p stenting, chronic right IJ thrombus, and hypertension. She has been on anticoagulation with warfarin since placement of the graft though her INR on admission was 1.6 despite being at 2.1 at discharge from the AV graft hospitalization. ?? She is hospitalized after the recent right upper extremity AV graft notably was lacking a thrill/bruit on Sunday at [facility] with subsequent ultrasound at [facility] revealing the graft thrombosed and there was perigraft fluid collection. She is now s/p successful thrombectomy and balloon angioplasty of the graft with resulting bruit/thrill. She remains hospitalized in the setting of warfarin administration with a goal INR of 2.5 and bridgewith heparin. Vascular medicine has decided to continue with warfarin vs. Apixaban. ?? # ESRD secondary to uncontrolled hypertension, s/p renal transplant in 2007 s/p failure of transplant in 2017 on IHD MWF since # Thrombosed right arm brachioaxillary AV graft # History of ureteral obstruction s/p stenting # HTN # History of secondary hyperparathyroidism on Hectorol # Normocytic anemia, not on EPO or iron supplementation, transferrin saturation 28% and ferritin of 659 in April 2019 ?? Recommendations: - IHD today - renal dialysis diet - Continue mycophenolate 250 mg twice daily, tacrolimus 2 mg twice daily, and prednisone 5 mg daily - please order Dialyvite, one tablet each evening - Patient is due for ureteral stent exchange; urology to perform now as outpatient Standard Recommendations: - Daily weights and strict I/Os - Maintain MAP>65 mmHg - Avoid all nephrotoxins, if possible (contrast dye, unnecessary antibiotics, NSAIDs) - Renally dose/adjust all medications for GFR Staffed with Nephrology B [facility] Dr. Brooks. We will continue to follow. Please contact the Nephrology B service pager at [phone] with any questions or concerns. Anant Valdes M.D. Internal Medicine, PGY-2 06/04/19 Jefferson Farfan M.D. - 06/04/2019 8:23 AM CDT Thombosis Arteriovenous Fistula Initial (HCC) SUBJECTIVE Events over the past 24 hours: No acute events overnight. She has remained afebrile and hemodynamically stable. Her INR is 1.7 this morning from 1.5 yesterday. The patient expressed disappointment this morning with how slowly her INR is becoming therapeutic and stated that she would be leaving tomorrow regardless of what her INR is in the morning. She is otherwise doing well, tolerating PO intake with 750cc in yesterday, urine output of 300cc, and ambulating without issue. She will undergo dialysis today. OBJECTIVE VITAL SIGNS Temperature: [36.4 ??C-36.7 ??C] 36.5 ??C Heart Rate: [66] 66 Resp Rate: [16] 16 Blood Pressure: (155-178)/(82-88) 168/84 SpO2: [96 %-100 %] 98 % Pulse Rate: [63-75] 63 Respiratory Pattern: Regular (06/04/19 0300 : Raiza Johnson RDaviNDavi) Respiratory Effort: Unlabored (06/04/19 0300 : Raiza Johnson R.N.) I/O 06/02 0000 - 06/02 0000 - 06/03 0000 - 06/04 2359 P.O. 780 750 500 Crystalloid Bolus 36 Continuous Medications 221.9 248.4 Intermittent Medications 250 Total Intake(mL/kg) 1287.9 (13) 998.4 (10) 500 (5) Urine (mL/kg/hr) 450 (0.2) 300 (0.1) 400 (0.5) Dialysis 3258 Total Output 3708 300 400 Net -2420.1 +698.4 +100 Intake/Output Summary (Last 24 hours) at 06/04/2019 0824 Last data filed at 06/04/2019 0811 Gross per 24 hour Intake 1498.42 ml Output 700 ml Net 798.42 ml Constitutional Appearance: Normal appearance. HENT Head: Normocephalic and atraumatic. Mouth/Throat: Mouth: Mucous membranes are moist. Eyes Extraocular Movements: Extraocular movements intact. Conjunctiva/sclera: Conjunctivae normal. Neck Musculoskeletal: Normal range of motion. Cardiovascular Rate and Rhythm: Normal rate and regular rhythm. Pulmonary Effort: Pulmonary effort is normal. Abdominal Palpations: Abdomen is soft. Musculoskeletal Normal range of motion. Comments: RUE: Palpable thrill at site of AV graft in proximal RUE. Small area of erythema adjacentto prior surgical incision. RUE incision site is clean, dry, and intact. Skin General: Skin is warm and dry. Neurological General: No focal deficit present. Mental Status: She is alert and oriented to person, place, and time. Mental status is at baseline. Psychiatric Mood and Affect: Mood normal. Behavior: Behavior normal. LABORATORY STUDIES Recent Labs 06/03/19 0907 K 3.9 Recent Labs 06/04/19 0422 WBC 6.8 HGB 8.8 L HCT 28.0 L PLT 135 L INR 1.7 PT 19.4 H Lines, Drains, and Airways Peripheral IV Peripheral IV Catheter 05/30/19 18 G Left Wrist 4d 17h Hemodialysis catheter Hemodialysis Catheter Permanent (tunneled, implanted) Right Chest 29d 22h Hemodialysis AV Access Retired (Do not use) Hemodialysis AV Access Right AV Fistula 5763d 7h Hemodialysis AV Access Right AV Fistula 29d 8h Hemodialysis AV Access Right AV Graft 29d 8h Hemodialysis AV Access Left AV Fistula 113d 18h Wound Incision 05/31/19 Arm Mid 3d 20h ASSESSMENT / PLAN Hospital Problems as of 06/04/2019 1. * (Principal) Thombosis Arteriovenous Fistula Initial (HCC) 2. Complication Kidney Transplant (HCC) 3. Chronic Kidney Disease Stage 5 Glomerular Filtration Rate Less Than 15 (HCC) 4. Transplant Renal (HCC) 5. Obstruction Ureter Ms. Wray is a 58 year old female with ESRD with prior kidney transplant, now requiring hemodialysis, who underwent right arm brachio-basilic AV graft using Propaten graft on 05/06. 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 She was admitted 5 days ago with AV graft thrombosis in the RUE and is now POD 4 s/p brachio-basilic AV graft thromboembolectomy and balloon angioplasty of the venous anastomosis. She is doing well this morning with palpable thrill in proximal arm over AV graft. Carlitos in-hospital on heparin drip awaiting therapeutic INR on Warfarin. Current INR 1.7 from 1.5 yesterday. She states that she will be leaving tomorrow regardless of what her INR is in the morning. PLAN ?? Continue Warfarin therapy with INR goal of 2.5-3.5. INR 1.7 today. ?? Continue moderate intensity heparin nomogram until therapeutic INR reached ?? Continue immunosuppressive medications for kidney transplant including Prograf 2mg BID, Cellcept 250mg BID, and Prednisone 5mg daily ?? Sevelamer 800mg dialy, Tums 1000mg with lunch and dinner, and Dialyvite 1 tab each evening per nephrology ?? MWF dialysis ?? Nicotine dependence consult for smoking cessation ?? Urology will perform stent exchange when she is an outpatient. Urinalysis and urine culture ordered in preparation for this procedure at Urology's request. ?? Diet: Regular diet (refusing renal diet) ?? Activity: as tolerated ?? VTE Prophylaxis: N/A due to therapeutic anti-coagulation ?? GI Prophylaxis: not indicated ?? Bowel Regimen: Senokot S ?? Indwelling Catheter: not applicable ?? Drain: not applicable ?? Pain: pain well-controlled on oral pain meds and Valium ?? Surgical Incision: incision clean, dry, intact ?? Antibiotics: perioperative antibiotics completed ?? Anticipated Disposition: Home tomorrow The above plan was discussed with Dr. Yu and Dr. Roger who are in agreement. Please do not hesitate to contact the [facility] service at pager #[phone] with any questions or concerns. Jefferson Farfan M.D. Pager: [phone] Elena Mitchell Pharm.D., R.Ph. - 06/04/2019 8:22 AM CDT Warfarin Dosing Progress Note: More information: Shabnam Wray is a 58 y.o. female who was admitted to the hospital on 05/30/2019. Hospital Pharmacy has been consulted for inpatient warfarin management and monitoring. Warfarin Indication: Other (Comment) Other indication (comments): Arterio-Venous graft thrombosis prevention Type of therapy: Continuation Prior average daily dose: 2.3 Comorbidities: No known risk Are any of these comorbidities new with admission? No Are there any new medication interactions with admission? No Target INR: 2.5-3.5 Day of therapy: 5 and beyond Drug interactions include the following: Strong Potentiator (From admission, onward) None Moderate Potentiators (From admission, onward) Start Dose/Rate Route Frequency Ordered Stop 05/31/19 1700 acetaminophen tablet 1,000 mg (TYLENOL) 1,000 mg oral 4 times daily 05/31/19 1247 Potentiating (From admission, onward) Start Dose/Rate Route Frequency Ordered Stop 05/31/19 1700 acetaminophen tablet 1,000 mg (TYLENOL) 1,000 mg oral 4 times daily 05/31/19 1247 Enzyme Inducers (From admission, onward) None Binders (From admission, onward) Start Dose/Rate Route Frequency Ordered Stop 05/30/19 2130 sevelamer tablet 800 mg (RENVELA) 800 mg oral Daily 05/30/196 07/18/19 0859 Vitamin K-Containing Medications (168h ago, onward) None Antiplatelets & Anticoagulants (168h ago, onward) Start Dose/Rate Route Frequency Ordered Stop 06/03/19 1700 warfarin tablet 5 mg (COUMADIN) 5 mg oral Once 10/15/19 0810 06/03/19 1711 06/02/19 1700 warfarin tablet 5 mg (COUMADIN) 5 mg oral Once 06/02/19 1221 06/02/19 1810 06/01/19 1700 warfarin management (COUMADIN) oral Daily 05/31/19 1637 06/01/19 1700 warfarin tablet 4 mg (COUMADIN) 4 mg oral Once 06/01/19 0813 06/01/19 1718 05/31/19 1700 warfarin tablet 3 mg (COUMADIN) 3 mg oral Once 05/31/19 1423 05/31/19 1638 05/31/19 1400 heparin (porcine) 100 Units/mL in D5W 250 mL infusion 0-40 Units/kg/hr ?? 97 kg (Dosing Weight) 0-38.8 mL/hr intravenous Continuous 05/31/19 1358 05/31/19 1358 heparin (porcine) 1,000 unit/mL injection 5,800 Units 60 Units/kg ?? 97 kg (Dosing Weight) intravenous As needed 05/31/19 1358 05/31/19 1358 heparin (porcine) 1,000 unit/mL injection 2,900 Units 30 Units/kg ?? 97 kg (Dosing Weight) intravenous As needed 05/31/19 1358 05/30/19 1739 heparin (porcine) 1,000 unit/mL injection 5,800 Units 60 Units/kg ?? 97 kg (Dosing Weight) intravenous Once 05/30/19 1738 05/30/19 1806 INR reversal agents were not given. Warfarin Reversal Agent Administrations (last 168 hours) Vitamin K and K-Centra None FFP Administrations During Encounter (Filter: EAP GENERAL TRANSFUSE FFP Medications Shown) None Warfarin Administrations (last 168 hours) Date/Time Action Medication Dose 06/03/19 1711 Given warfarin tablet 5 mg (COUMADIN) 5 mg 06/02/19 1810 Given warfarin tablet 5 mg (COUMADIN) 5 mg 06/01/19 1718 Given warfarin tablet 4 mg (COUMADIN) 4 mg 05/31/19 1638 Given warfarin tablet 3 mg (COUMADIN) 3 mg INR (no units) Date Value Status 06/04/2019 1.7 Final 06/03/2019 1.5 Final 06/02/2019 1.4 Final 06/01/2019 1.4 Final 05/31/2019 1.5 Final 05/30/2019 1.6 Final A/P: No new drug interactions noted. INR 1.7, up from 1.5 yesterday. Will increase warfarin to 6 mg tonight. The pharmacist team will continue to follow patient's clinical progress daily until discharge from the hospital. Elena Mitchell Pharm.D., R.Ph. Contact [phone] with any questions about this note. Jefferson Farfan M.D. - 06/03/2019 8:10 AM CDT Thombosis Arteriovenous Fistula Initial (HCC) SUBJECTIVE Events over the past 24 hours: No acute events overnight. She has remained afebrile and hemodynamically stable. Doing well with no complaints this morning. Palpable thrill over AV graft site. Tolerating PO intake with 780cc in yesterday. Dialysis yesterday with 3.3 L pulled off and urine output of 300cc over the last 24 hours. Ambulating without issue. INR 1.5 today from 1.4 yesterday. OBJECTIVE VITAL SIGNS Temperature: [36.5 ??C-36.8 ??C] 36.7 ??C Heart Rate: [71] 71 Resp Rate: [14-17] 16 Blood Pressure: (124-160)/(68-98) 160/98 SpO2: [94 %-100 %] 96 % Weight: [98.9 kg-102 kg] 100 kg BMI (Calculated): [36.8 kg/m??-38.1 kg/m??] 37.3 kg/m?? Pulse Rate: [64-73] 69 Respiratory Pattern: Regular (06/02/19 2030 : Dara Davis, R.N.) Respiratory Effort: Unlabored (05/31/19 1200 : Mable Milian R.N.) I/O 06/01 P.O. 480 780 Crystalloid Bolus 36 Continuous Medications 373.3 221.9 Intermittent Medications 250 Total Intake(mL/kg) 853.3 (8.6) 1287.9 (13) Urine (mL/kg/hr) 200 (0.1) 450 (0.2) Dialysis 3258 Total Output 200 3708 Net +653.3 -2420.1 Intake/Output Summary (Last 24 hours) at 06/03/2019 0810 Last data filed at 06/02/2019 2000 Gross per 24 hour Intake 1186.55 ml Output 3558 ml Net -2371.45 ml Constitutional Appearance: Normal appearance. HENT Head: Normocephalic and atraumatic. Mouth/Throat: Mouth: Mucous membranes are moist. Eyes Extraocular Movements: Extraocular movements intact. Conjunctiva/sclera: Conjunctivae normal. Neck Musculoskeletal: Normal range of motion. Cardiovascular Rate and Rhythm: Normal rate and regular rhythm. Pulmonary Effort: Pulmonary effort is normal. Abdominal Palpations: Abdomen is soft. Musculoskeletal Normal range of motion. Comments: RUE: Palpable thrill at site of AV graft in proximal RUE. Small area of erythema adjacentto prior surgical incision. Primapore covering incision site; dressing is clean, dry, and intact. Dressing removed this morning on rounds. Skin General: Skin is warm and dry. Neurological General: No focal deficit present. Mental Status: She is alert and oriented to person, place, and time. Mental status is at baseline. Psychiatric Mood and Affect: Mood normal. Behavior: Behavior normal. LABORATORY STUDIES Recent Labs 06/03/19 0426 NA 132 L CL 96 L CALCIUM 8.8 GLUCOSE 76 BUN 20 CREATININE 4.33 H Recent Labs 06/03/19 0426 WBC 6.2 HGB 8.4 L HCT 27.0 L PLT 162 INR 1.5 PT 16.8 H Lines, Drains, and Airways Peripheral IV Peripheral IV Catheter 05/30/19 18 G Left Wrist 3d 16h Hemodialysis catheter Hemodialysis Catheter Permanent (tunneled, implanted) Right Chest 28d 22h Hemodialysis AV Access Retired (Do not use) Hemodialysis AV Access Right AV Fistula 5762d 7h Hemodialysis AV Access Right AV Fistula 28d 8h Hemodialysis AV Access Right AV Graft 28d 8h Hemodialysis AV Access Left AV Fistula 112d 18h Wound Incision 05/31/19 Arm Mid 2d 20h ASSESSMENT / PLAN Hospital Problems as of 06/03/2019 1. * (Principal) Thombosis Arteriovenous Fistula Initial (HCC) 2. Complication Kidney Transplant (HCC) 3. Chronic Kidney Disease Stage 5 Glomerular Filtration Rate Less Than 15 (HCC) 4. Transplant Renal (HCC) 5. Obstruction Ureter Ms. Wray is a 58 year old female with ESRD with prior kidney transplant, now requiring hemodialysis, who underwent right arm brachio-basilic AV graft using Propaten graft on 05/06. 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 She was admitted 4 days ago with AV graft thrombosis in the RUE and is now POD 3 s/p brachio-basilic AV graft thromboembolectomy and balloon angioplasty of the venous anastomosis. She is doing well this morning with palpable thrill in proximal arm over AV graft. Carlitos in-hospital on heparin drip awaiting therapeutic INR on Warfarin. Current INR 1.5 from 1.4 yesterday. PLAN ?? Continue Warfarin therapy with INR goal of 2.5-3.5. INR 1.5 today. ?? Continue moderate intensity heparin nomogram until therapeutic INR reached ?? Continue immunosuppressive medications for kidney transplant including Prograf 2mg BID, Cellcept 250mg BID, and Prednisone 5mg daily ?? Sevelamer 800mg dialy, Tums 1000mg with lunch and dinner, and Dialyvite 1 tab each evening per nephrology ?? MWF dialysis ?? Nicotine dependence consult for smoking cessation ?? Urology will perform stent exchange when she is an outpatient. Urinalysis and urine culture ordered in preparation for this procedure at Urology's request. ?? Diet: Regular diet (refusing renal diet) ?? Activity: as tolerated ?? VTE Prophylaxis: N/A due to therapeutic anti-coagulation ?? GI Prophylaxis: not indicated ?? Bowel Regimen: Senokot S ?? Indwelling Catheter: not applicable ?? Drain: not applicable ?? Pain: pain well-controlled on oral pain meds and Valium ?? Surgical Incision: surgical dressing removed; clean, dry, intact ?? Antibiotics: perioperative antibiotics completed ?? Anticipated Disposition: Home, unknown at this time The above plan was discussed with Dr. Yu and Dr. Roger who are in agreement. Please do not hesitate to contact the [facility] service at pager #[phone] with any questions or concerns. Jefferson Farfan M.D. Pager: [phone] Elena Mitchell Pharm.D., R.Ph. - 06/03/2019 8:08 AM CDT Warfarin Dosing Progress Note: More information: Shabnam Wray is a 58 y.o. female who was admitted to the hospital on 05/30/2019. Hospital Pharmacy has been consulted for inpatient warfarin management and monitoring. Warfarin Indication: Other (Comment) Other indication (comments): Arterio-Venous graft thrombosis prevention Type of therapy: Continuation Prior average daily dose: 2.3 Comorbidities: No known risk Are any of these comorbidities new with admission? No Are there any new medication interactions with admission? No Target INR: 2.5-3.5 Day of therapy: 4 Drug interactions include the following: Strong Potentiator (From admission, onward) None Moderate Potentiators (From admission, onward) Start Dose/Rate Route Frequency Ordered Stop 05/31/19 1700 acetaminophen tablet 1,000 mg (TYLENOL) 1,000 mg oral 4 times daily 05/31/19 1247 Potentiating (From admission, onward) Start Dose/Rate Route Frequency Ordered Stop 05/31/19 1700 acetaminophen tablet 1,000 mg (TYLENOL) 1,000 mg oral 4 times daily 05/31/19 1247 Enzyme Inducers (From admission, onward) None Binders (From admission, onward) Start Dose/Rate Route Frequency Ordered Stop 05/30/19 2130 sevelamer tablet 800 mg (RENVELA) 800 mg oral Daily 05/30/19 2116 07/18/19 0859 Vitamin K-Containing Medications (168h ago, onward) None Antiplatelets & Anticoagulants (168h ago, onward) Start Dose/Rate Route Frequency Ordered Stop 06/02/19 1700 warfarin tablet 5 mg (COUMADIN) 5 mg oral Once 06/02/19 1221 06/02/19 1810 06/01/19 1700 warfarin management (COUMADIN) oral Daily 05/31/19 1637 06/01/19 1700 warfarin tablet 4 mg (COUMADIN) 4 mg oral Once 06/01/19 0813 06/01/19 1718 05/31/19 1700 warfarin tablet 3 mg (COUMADIN) 3 mg oral Once 05/31/19 1423 05/31/19 1638 05/31/19 1400 heparin (porcine) 100 Units/mL in D5W 250 mL infusion 0-40 Units/kg/hr ?? 97 kg (Dosing Weight) 0-38.8 mL/hr intravenous Continuous 05/31/19 1358 05/31/19 1358 heparin (porcine) 1,000 unit/mL injection 5,800 Units 60 Units/kg ?? 97 kg (Dosing Weight) intravenous As needed 05/31/19 1358 05/31/19 1358 heparin (porcine) 1,000 unit/mL injection 2,900 Units 30 Units/kg ?? 97 kg (Dosing Weight) intravenous As needed 05/31/19 1358 05/30/19 1739 heparin (porcine) 1,000 unit/mL injection 5,800 Units 60 Units/kg ?? 97 kg (Dosing Weight) intravenous Once 05/30/19 1738 05/30/19 1806 INR reversal agents were not given. Warfarin Reversal Agent Administrations (last 168 hours) Vitamin K and K-Centra None FFP Administrations During Encounter (Filter: EAP GENERAL TRANSFUSE FFP Medications Shown) None Warfarin Administrations (last 168 hours) Date/Time Action Medication Dose 06/02/19 1810 Given warfarin tablet 5 mg (COUMADIN) 5 mg 06/01/19 1718 Given warfarin tablet 4 mg (COUMADIN) 4 mg 05/31/19 1638 Given warfarin tablet 3 mg (COUMADIN) 3 mg INR (no units) Date Value Status 06/03/2019 1.5 Final 06/02/2019 1.4 Final 06/01/2019 1.4 Final 05/31/2019 1.5 Final 05/30/2019 1.6 Final A/P: No new drug interactions noted. INR 1.5, up from 1.4 yesterday with warfarin doses being increased the past two days. Will repeat warfarin 5 mg tonight given we are not yet at steady state. The pharmacist team will continue to follow patient's clinical progress daily until discharge from the hospital. Elena Mitchell PharmDaviD., R.Ph. Contact [phone] with any questions about this note. Davis Valdes M.D. - 06/02/2019 12:50 PM CDT NEPHROLOGY PROGRESS NOTE SUBJECTIVE No acute events overnight. She is feeling well postoperatively. OBJECTIVE VITAL SIGNS Temperature: [36.4 ??C-36.8 ??C] 36.5 ??C Heart Rate: [71] 71 Resp Rate: [13-18] 14 Blood Pressure: (137-163)/(77-86) 137/81 SpO2: [95 %-99 %] 98 % Pulse Rate: [65-109] 109 Intake/Output Last 24 Hours: Intake/Output Summary (Last 24 hours) at 06/02/2019 1250 Last data filed at 06/02/2019 1200 Gross per 24 hour Intake 1083.56 ml Output 400 ml Net 683.56 ml PHYSICAL EXAM General: No acute distress. HEENT: Eyes are anicteric and noninjected. Moist mucus membranes. Skin: no rashes noted; bandaged surgical site on RUE Heart: RRR, normal S1/S2, no murmurs, rubs, gallops. CV: audible bruit over graft site on RUE Lungs: Normal WOB, symmetric chest rise. Lungs are CTAB, no wheezes or crackles. Abdomen: Soft, nontender. Extremities: Legs are warm/dry without edema. DIAGNOSTICS ASSESSMENT / PLAN Ms. Wray is a 58 y.o. 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 She has been on anticoagulation with warfarin since placement of the graft though her INR on admission was 1.6 despite being at 2.1 at discharge from the AV graft hospitalization. ?? She is hospitalized after the recent right upper extremity AV graft notably was lacking a thrill/bruit on Sunday at [facility] with subsequent ultrasound at [facility] revealing the graft thrombosed and there was perigraft fluid collection. She is now s/p successful thrombectomy and balloon angioplasty of the graft with resulting bruit/thrill. She remains hospitalized in the setting of warfarin administration with a goal INR of 2.5 and bridgewith heparin. She was seen by vascular medicine yesterday who also brought up the possibility of Eliquis as an alternative. After touching base with Dr. Martínez, the patient's primary nephrology, he agrees with eliquis for anticoagulation. ?? # ESRD secondary to uncontrolled hypertension, s/p renal transplant in 2008 s/p failure of transplant in 2017 on IHD MWF since # Thrombosed right arm brachioaxillary AV graft # History of ureteral obstruction s/p stenting # HTN # History of secondary hyperparathyroidism on Hectorol # Normocytic anemia, not on EPO or iron supplementation, transferrin saturation 28% and ferritin of 659 in April 2019 ?? Recommendations: - IHD today - renal dialysis diet - Continue mycophenolate 250 mg twice daily, tacrolimus 2 mg twice daily, and prednisone 5 mg daily - please order Dialyvite, one tablet each evening - Patient is due for ureteral stent exchange; urology to perform now as outpatient - In discussion with Dr. Martínez, the patient's primary nephrology, and he agrees with eliquis for anticoagulation Standard Recommendations: - Daily weights and strict I/Os - Maintain MAP>65 mmHg - Avoid all nephrotoxins, if possible (contrast dye, unnecessary antibiotics, NSAIDs) - Renally dose/adjust all medications for GFR Staffed with Nephrology B [facility] Dr. Harrell. We will continue to follow. Please contact the Nephrology B service pager at [phone] with any questions or concerns. Anant Valdes M.D. Internal Medicine, PGY-2 06/02/19 Elena Mitchell, D., R.Ph. - 06/02/2019 12:20 PM CDT Warfarin Dosing Progress Note: More information: Shabnam Wray is a 58 y.o. female who was admitted to the hospital on 05/30/2019. Hospital Pharmacy has been consulted for inpatient warfarin management and monitoring. Warfarin Indication: Other (Comment) Other indication (comments): Arterio-Venous graft thrombosis prevention Type of therapy: Continuation Prior average daily dose: 2.3 Comorbidities: No known risk Are any of these comorbidities new with admission? No Are there any new medication interactions with admission? No Target INR: 2.5-3.5 Day of therapy: 3 Drug interactions include the following: Strong Potentiator (From admission, onward) None Moderate Potentiators (From admission, onward) Start Dose/Rate Route Frequency Ordered Stop 05/31/19 1700 acetaminophen tablet 1,000 mg (TYLENOL) 1,000 mg oral 4 times daily 05/31/19 1247 Potentiating (From admission, onward) Start Dose/Rate Route Frequency Ordered Stop 05/31/19 1700 acetaminophen tablet 1,000 mg (TYLENOL) 1,000 mg oral 4 times daily 05/31/19 1247 Enzyme Inducers (From admission, onward) None Binders (From admission, onward) Start Dose/Rate Route Frequency Ordered Stop 05/30/19 2130 sevelamer tablet 800 mg (RENVELA) 800 mg oral Daily 05/30/19 2116 07/18/19 0859 Vitamin K-Containing Medications (168h ago, onward) None Antiplatelets & Anticoagulants (168h ago, onward) Start Dose/Rate Route Frequency Ordered Stop 06/01/19 1700 warfarin management (COUMADIN) oral Daily 05/31/19 1637 06/01/19 1700 warfarin tablet 4 mg (COUMADIN) 4 mg oral Once 06/01/19 0813 06/01/19 1718 05/31/19 1700 warfarin tablet 3 mg (COUMADIN) 3 mg oral Once 05/31/19 1423 05/31/19 1638 05/31/19 1400 heparin (porcine) 100 Units/mL in D5W 250 mL infusion 0-40 Units/kg/hr ?? 97 kg (Dosing Weight) 0-38.8 mL/hr intravenous Continuous 05/31/19 1358 05/31/19 1358 heparin (porcine) 1,000 unit/mL injection 5,800 Units 60 Units/kg ?? 97 kg (Dosing Weight) intravenous As needed 05/31/19 1358 05/31/19 1358 heparin (porcine) 1,000 unit/mL injection 2,900 Units 30 Units/kg ?? 97 kg (Dosing Weight) intravenous As needed 05/31/19 1358 05/30/19 1739 heparin (porcine) 1,000 unit/mL injection 5,800 Units 60 Units/kg ?? 97 kg (Dosing Weight) intravenous Once 05/30/19 1738 05/30/19 1806 INR reversal agents were not given. Warfarin Reversal Agent Administrations (last 168 hours) Vitamin K and K-Centra None FFP Administrations During Encounter (Filter: EAP GENERAL TRANSFUSE FFP Medications Shown) None Warfarin Administrations (last 168 hours) Date/Time Action Medication Dose 06/01/19 1718 Given warfarin tablet 4 mg (COUMADIN) 4 mg 05/31/19 1638 Given warfarin tablet 3 mg (COUMADIN) 3 mg INR (no units) Date Value Status 06/02/2019 1.4 Final 06/01/2019 1.4 Final 05/31/2019 1.5 Final 05/30/2019 1.6 Final A/P: Warfarin order of 5 mg has been placed for today and the pharmacist team will continue to follow patient's clinical progress daily until discharge from the hospital. Elena Mitchell, Damián, R.Ph. Contact [phone] with any questions about this note. Jefferson Farfan M.D. - 06/02/2019 8:05 AM CDT Thombosis Arteriovenous Fistula Initial (HCC) SUBJECTIVE Events over the past 24 hours: No acute events overnight. She has remained afebrile and hemodynamically stable. She has no complaints this morning and denies pain. Continues to have a palpable thrill over AV graft site. Tolerating PO intake. Ambulating without issue. INR 1.4 today from 1.4 yesterday (goal 2.5-3.5). Dialysis planned for today. OBJECTIVE VITAL SIGNS Temperature: [36.4 ??C-36.8 ??C] 36.8 ??C Resp Rate: [13-18] 18 Blood Pressure: (154-163)/(77-86) 163/86 SpO2: [95 %-99 %] 99 % Weight: [98.9 kg] 98.9 kg BMI (Calculated): [36.8 kg/m??] 36.8 kg/m?? Pulse Rate: [65-109] 109 Respiratory Effort: Unlabored (05/31/19 1200 : Rukhsana, Mable, R.N.) I/O 05/31 - 05/31 P.O. 400 480 Maintenance IV 700 Continuous Medications 118.9 373.3 101.3 Total Intake(mL/kg) 1218.9 (12.5) 853.3 (8.6) 101.3 (1) Urine (mL/kg/hr) 200 (0.1) 150 (0.2) Blood 50 Total Output 50 200 150 Net +1168.9 +653.3 -48.7 Intake/Output Summary (Last 24 hours) at 06/02/2019 0805 Last data filed at 06/02/2019 0644 Gross per 24 hour Intake 787.21 ml Output 250 ml Net 537.21 ml Constitutional Appearance: Normal appearance. HENT Head: Normocephalic and atraumatic. Mouth/Throat: Mouth: Mucous membranes are moist. Eyes Extraocular Movements: Extraocular movements intact. Conjunctiva/sclera: Conjunctivae normal. Neck Musculoskeletal: Normal range of motion. Cardiovascular Rate and Rhythm: Normal rate and regular rhythm. Pulmonary Effort: Pulmonary effort is normal. Abdominal Palpations: Abdomen is soft. Musculoskeletal Normal range of motion. Comments: RUE: Palpable thrill at site of AV graft in proximal RUE. Small area of erythema adjacentto prior surgical incision. Primapore covering incision site; dressing is clean, dry, and intact. Skin General: Skin is warm and dry. Neurological General: No focal deficit present. Mental Status: She is alert and oriented to person, place, and time. Mental status is at baseline. Psychiatric Mood and Affect: Mood normal. Behavior: Behavior normal. LABORATORY STUDIES No results for input(s): NA, K, CL, CO2, MG, CALCIUM, GLUCOSE, HGBA1C, BUN, CREATININE, ALBUMIN, PREALBUMIN in the last 24 hours. Recent Labs 06/02/19 0453 WBC 7.5 HGB 8.3 L HCT 27.0 L PLT 142 L INR 1.4 PT 16.0 H Lines, Drains, and Airways Peripheral IV Peripheral IV Catheter 05/30/19 18 G Left Wrist 2d 16h Hemodialysis catheter Hemodialysis Catheter Permanent (tunneled, implanted) Right Chest 27d 22h Hemodialysis AV Access Retired (Do not use) Hemodialysis AV Access Right AV Fistula 5761d 7h Hemodialysis AV Access Right AV Fistula 27d 8h Hemodialysis AV Access Left AV Fistula 111d 18h Wound Incision 05/31/19 Arm Mid 1d 20h ASSESSMENT / PLAN Hospital Problems as of 06/02/2019 1. * (Principal) Thombosis Arteriovenous Fistula Initial (HCC) 2. Complication Kidney Transplant (HCC) 3. Chronic Kidney Disease Stage 5 Glomerular Filtration Rate Less Than 15 (HCC) 4. Transplant Renal (HCC) 5. Obstruction Ureter Ms. Wray is a 58 year old female with ESRD with prior kidney transplant, now requiring hemodialysis, who underwent right arm brachio-basilic AV graft using Propaten graft on 05/06. 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 She was admitted 3 days ago with AV graft thrombosis in the RUE and is now POD 2 s/p brachio-basilic AV graft thromboembolectomy and balloon angioplasty of the venous anastomosis. She is doing well this morning with palpable thrill in proximal arm over AV graft. Carlitos in-hospital on heparin drip awaiting therapeutic INR on Warfarin. She will have dialysis today. PLAN ?? Continue Warfarin therapy with INR goal of 2.5-3.5. INR 1.4 today. ?? Continue moderate intensity heparin nomogram until therapeutic INR reached ?? Continue immunosuppressive medications for kidney transplant including Prograf 2mg BID, Cellcept 250mg BID, and Prednisone 5mg daily ?? Sevelamer 800mg dialy, Tums 1000mg with lunch and dinner, and Dialyvite 1 tab each evening per nephrology ?? MWF dialysis - she will receive inpatient dialysis today ?? Nicotine dependence consult for smoking cessation ?? Urology will perform stent exchange when she is an outpatient. Urinalysis and urine culture ordered in preparation for this procedure at Urology's request. ?? Diet: Regular diet (refusing renal diet) ?? Activity: as tolerated ?? VTE Prophylaxis: N/A due to therapeutic anti-coagulation ?? GI Prophylaxis: not indicated ?? Bowel Regimen: Senokot S ?? Indwelling Catheter: not applicable ?? Drain: not applicable ?? Pain: pain well-controlled on oral pain meds and Valium ?? Surgical Incision: surgical dressing in place; clean, dry, intact ?? Antibiotics: perioperative antibiotics completed ?? Anticipated Disposition: Home, unknown at this time The above plan was discussed with Dr. Yu and Dr. Roger who are in agreement. Please do not hesitate to contact the [facility] service at pager #[phone] with any questions or concerns. Jefferson Farfan M.D. Pager: [phone] Jefferson Farfan M.D. - 06/01/2019 10:22 AM CDT Riazbosis Arteriovenous Fistula Initial (HCC) SUBJECTIVE Events over the past 24 hours: No acute events overnight. She has remained afebrile and hemodynamically stable. She has no complaints this morning and denies pain. Has a palpable thrill over AV graft site. Tolerating PO intake. Ambulating without issue. Dialysis planned for tomorrow (Sunday, 05/03). OBJECTIVE VITAL SIGNS Temperature: [36.4 ??C-36.8 ??C] 36.7 ??C Heart Rate: [68-82] 68 Resp Rate: [12-20] 16 Blood Pressure: (122-175)/(68-89) 174/89 SpO2: [87 %-100 %] 94 % Flow Rate (L/min): [3 L/min] 3 L/min Pulse Rate: [73-81] 78 Respiratory Effort: Unlabored (05/31/19 1200 : Rukhsana, Mable, R.N.) I/O 05/30 - 05/30 - 05/31 - 06/01 235 P.O. 500 400 480 Maintenance IV 700 Continuous Medications 33.8 118.9 167.4 Total Intake(mL/kg) 533.8 (5.5) 1218.9 (12.5) 647.4 (6.6) Blood 50 Total Output 50 Net +533.8 +1168.9 +647.4 Intake/Output Summary (Last 24 hours) at 06/01/2019 1023 Last data filed at 06/01/2019 0900 Gross per 24 hour Intake 1747.36 ml Output 50 ml Net 1697.36 ml Constitutional Appearance: Normal appearance. HENT Head: Normocephalic and atraumatic. Mouth/Throat: Mouth: Mucous membranes are moist. Eyes Extraocular Movements: Extraocular movements intact. Conjunctiva/sclera: Conjunctivae normal. Neck Musculoskeletal: Normal range of motion. Cardiovascular Rate and Rhythm: Normal rate and regular rhythm. Pulmonary Effort: Pulmonary effort is normal. Abdominal Palpations: Abdomen is soft. Musculoskeletal Normal range of motion. Comments: RUE: Palpable thrill at site of AV graft in proximal RUE. Small area of erythema adjacentto prior surgical incision. Primapore covering incision site; dressing is clean, dry, and intact. Skin General: Skin is warm and dry. Neurological General: No focal deficit present. Mental Status: She is alert and oriented to person, place, and time. Mental status is at baseline. Psychiatric Mood and Affect: Mood normal. Behavior: Behavior normal. LABORATORY STUDIES Recent Labs 06/01/19 0333 NA 134 L K 4.4 CL 95 L MG 2.0 CALCIUM 9.6 GLUCOSE 132 BUN 34 H CREATININE 6.52 H Recent Labs 06/01/19 0333 WBC 9.9 H HGB 7.9 L HCT 25.9 L PLT 145 L INR 1.4 PT 15.7 H Lines, Drains, and Airways Peripheral IV Peripheral IV Catheter 05/30/19 18 G Left Wrist 1d 19h Hemodialysis catheter Hemodialysis Catheter Permanent (tunneled, implanted) Right Chest 27d 0h Hemodialysis AV Access Retired (Do not use) Hemodialysis AV Access Right AV Fistula 5760d 9h Hemodialysis AV Access Right AV Fistula 26d 10h Hemodialysis AV Access Left AV Fistula 110d 20h Wound Incision 05/31/19 Arm Mid 22h ASSESSMENT / PLAN Hospital Problems as of 06/01/2019 1. * (Principal) Thombosis Arteriovenous Fistula Initial ([facility]) 2. Complication Kidney Transplant ([facility]) 3. Chronic Kidney Disease Stage 5 Glomerular Filtration Rate Less Than 15 ([facility]) 4. Transplant Renal ([facility]) 5. Obstruction Ureter Ms. Wray is a 58 year old female with ESRD with prior kidney transplant, now requiring hemodialysis, who underwent right arm brachio-basilic AV graft using Propaten graft on 05/06. 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 She was admitted 2 days ago with AV graft thrombosis in the RUE and is now POD 1 s/p brachio-basilic AV graft thromboembolectomy and balloon angioplasty of the venous anastomosis. She is doing well this morning with palpable thrill in proximal arm over AV graft. Shewas restarted on Warfarin and will remain in-hospital on heparin drip until she becomes therapeutic. PLAN ?? Restart Warfarin therapy with goal of 2.5-3.5 ?? Continue moderate intensity heparin nomogram until therapeutic INR reached ?? Continue immunosuppressive medications for kidney transplant including Prograf 2mg BID, Cellcept 250mg BID, and Prednisone 5mg daily ?? Sevelamer 800mg dialy, Tums 1000mg with lunch and dinner, and Dialyvite 1 tab each evening per nephrology ?? MWF dialysis - she will receive inpatient dialysis Sunday ?? Nicotine dependence consult for smoking cessation ?? Will reach out to Urology to discuss whether scheduled stent exchange can be performed inpatient or will need to be done outpatient ?? Diet: Regular diet (refusing renal diet) ?? Activity: as tolerated ?? VTE Prophylaxis: N/A due to therapeutic anti-coagulation ?? GI Prophylaxis: not indicated ?? Bowel Regimen: Senokot S ?? Indwelling Catheter: not applicable ?? Drain: not applicable ?? Pain: pain well-controlled on oral pain meds and Valium ?? Surgical Incision: surgical dressing in place; clean, dry, intact ?? Antibiotics: perioperative antibiotics completed ?? Anticipated Disposition: Home, unknown at this time The above plan was discussed with Dr. Yu and Dr. Roger who are in agreement. Please do not hesitate to contact the [facility] service at pager #[phone] with any questions or concerns. Jefferson Farfan M.D. Pager: [phone] Rema Ashford, Pharm.D., R.Ph. - 06/01/2019 8:17 AM CDT Warfarin Dosing Progress Note: More information: Shabnam Wray is a 58 y.o. female who was admitted to the hospital on 05/30/2019. Hospital Pharmacy has been consulted for inpatient warfarin management and monitoring. Warfarin Indication: Other (Comment) Other indication (comments): Arterio-Venous graft thrombosis prevention Type of therapy: Continuation Prior average daily dose: 2.3 Comorbidities: No known risk Are any of these comorbidities new with admission? No Are there any new medication interactions with admission? No Target INR: 2.5-3.5 Day of therapy: 2 Drug interactions include the following: Strong Potentiator (From admission, onward) None Moderate Potentiators (From admission, onward) Start Dose/Rate Route Frequency Ordered Stop 05/31/19 1700 acetaminophen tablet 1,000 mg (TYLENOL) 1,000 mg oral 4 times daily 05/31/19 1247 Potentiating (From admission, onward) Start Dose/Rate Route Frequency Ordered Stop 05/31/19 1700 acetaminophen tablet 1,000 mg (TYLENOL) 1,000 mg oral 4 times daily 05/31/19 1247 Enzyme Inducers (From admission, onward) None Binders (From admission, onward) Start Dose/Rate Route Frequency Ordered Stop 05/30/19 2130 sevelamer tablet 800 mg (RENVELA) 800 mg oral Daily 05/30/19 2116 07/18/19 0859 Vitamin K-Containing Medications (168h ago, onward) None Antiplatelets & Anticoagulants (168h ago, onward) Start Dose/Rate Route Frequency Ordered Stop 06/01/19 1700 warfarin management (COUMADIN) oral Daily 05/31/19 1637 06/01/19 1700 warfarin tablet 4 mg (COUMADIN) 4 mg oral Once 06/01/19 0813 06/01/19 2345 05/31/19 1700 warfarin tablet 3 mg (COUMADIN) 3 mg oral Once 05/31/19 1423 05/31/19 1638 05/31/19 1400 heparin (porcine) 100 Units/mL in D5W 250 mL infusion 0-40 Units/kg/hr ?? 97 kg (Dosing Weight) 0-38.8 mL/hr intravenous Continuous 05/31/19 1358 05/31/19 1358 heparin (porcine) 1,000 unit/mL injection 5,800 Units 60 Units/kg ?? 97 kg (Dosing Weight) intravenous As needed 05/31/19 1358 05/31/19 1358 heparin (porcine) 1,000 unit/mL injection 2,900 Units 30 Units/kg ?? 97 kg (Dosing Weight) intravenous As needed 05/31/19 1358 05/30/19 1739 heparin (porcine) 1,000 unit/mL injection 5,800 Units 60 Units/kg ?? 97 kg (Dosing Weight) intravenous Once 05/30/19 1738 05/30/19 1806 INR reversal agents were not given. Warfarin Reversal Agent Administrations (last 168 hours) Vitamin K and K-Centra None FFP Administrations During Encounter (Filter: EAP GENERAL TRANSFUSE FFP Medications Shown) None Warfarin Administrations (last 168 hours) Date/Time Action Medication Dose 05/31/19 1638 Given warfarin tablet 3 mg (COUMADIN) 3 mg INR (no units) Date Value Status 06/01/2019 1.4 Final 05/31/2019 1.5 Final 05/30/2019 1.6 Final A/P: Continuing Warfarin therapy for Arterio-Venous graft thrombosis prevention with the INR Goal increased from 2 to 3 to 2.5 to 3.5 per Service order. Home regimen over the last 7 days was Warfarin 4mg on Sunday, 05/27 with 2mg the rest of the week (Avg. Daily dose = 2.3mg). Last dose was administered on 05/29/19 and the INR was 1.6 upon admission. INR was 1.4 today, decreased from 1.5 yesterday. No new drug-drug interactions. Therefore, Warfarin order of 4 mg (~30% dose increase) has been placedfor tonight. The pharmacist team will continue to follow patient's clinical progress daily until discharge from the hospital. Rema Ashford, PharmDaviD., R.Ph. Contact [phone] with any questions about this note. Davis Valdes M.D. - 06/01/2019 7:08 AM CDT NEPHROLOGY PROGRESS NOTE SUBJECTIVE No acute events overnight. She is feeling well postoperatively. We discussed the importance of anticoagulation and ensuring no further clotting. She has expressed that if the graft was to thrombose again she would prefer to move forward with using only the tunneled catheter or PD, if still an option, rather than try another graft/fistula. OBJECTIVE VITAL SIGNS Temperature: [36.4 ??C-36.8 ??C] 36.4 ??C Heart Rate: [68-82] 68 Resp Rate: [12-20] 18 Blood Pressure: (122-175)/(68-98) 174/89 SpO2: [87 %-100 %] 97 % Flow Rate (L/min): [3 L/min] 3 L/min Pulse Rate: [66-81] 78 Intake/Output Last 24 Hours: Intake/Output Summary (Last 24 hours) at 06/01/2019 0708 Last data filed at 06/01/2019 0415 Gross per 24 hour Intake 1386.25 ml Output 50 ml Net 1336.25 ml PHYSICAL EXAM General: No acute distress. HEENT: Eyes are anicteric and noninjected. Moist mucus membranes. Skin: no rashes noted; bandaged surgical site on RUE Heart: RRR, normal S1/S2, no murmurs, rubs, gallops. CV: audible bruit and palpable thrill over graft site on RUE Lungs: Normal WOB, symmetric chest rise. Lungs are CTAB, no wheezes or crackles. Abdomen: Soft, nontender. Extremities: Legs are warm/dry without edema. DIAGNOSTICS ASSESSMENT / PLAN Ms. Wray is a 58 y.o. 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 She has been on anticoagulation with warfarin since placement of the graft though her INR on admission was 1.6 despite being at 2.1 at discharge from the AV graft hospitalization. ?? She is hospitalized after the recent right upper extremity AV graft notably was lacking a thrill/bruit on Sunday at [facility] with subsequent ultrasound at [facility] revealing the graft thrombosed and there was perigraft fluid collection. She is now s/p successful thrombectomy and balloon angioplasty of the graft with resulting bruit/thrill. She remains hospitalized in the setting of warfarin administration with a goal INR of 2.5 and bridge with heparin. She was seen by vascular medicine yesterday who also brought up the possibility of Eliquis as an alternative. I will touch base with the patient'sprunc healthry section crews activities clerk for further considerations on anticoagulation. ?? # ESRD secondary to uncontrolled hypertension, s/p renal transplant in 2008 s/p failure of transplant in 2017 on IHD MWF since # Thrombosed right arm brachioaxillary AV graft # History of ureteral obstruction s/p stenting # HTN # History of secondary hyperparathyroidism on Hectorol # Normocytic anemia, not on EPO or iron supplementation, transferrin saturation 28% and ferritin of 659 in April 2019 ?? Recommendations: - no indication for dialysis today; will resume dialysis on Sunday - renal dialysis diet - Continue mycophenolate 250 mg twice daily, tacrolimus 2 mg twice daily, and prednisone 5 mg daily - please order Dialyvite, one tablet each evening - Patient is due for ureteral stent exchange and would recommend if possible for this to be completed while inpatient on Sunday - I will touch base with the primary section crews activities clerk today and see if he has other recommendations concerning anticoagulation. Standard Recommendations: - Daily weights and strict I/Os - Maintain MAP>65 mmHg - Avoid all nephrotoxins, if possible (contrast dye, unnecessary antibiotics, NSAIDs) - Renally dose/adjust all medications for GFR Staffed with Nephrology B [facility] Dr. Harrell. We will continue to follow. Please contact the Nephrology B service pager at [phone] with any questions or concerns. Anant Valdes M.D. Internal Medicine, PGY-2 06/01/19 Associated attestation - Nicole Harrell M.D., Ph.D. - 06/01/2019 4:44 PM CDT I saw and evaluated the patient, participating in the iglesias portions of the service. I reviewed the resident/fellow???s note. I agree with the resident/fellow???s findings and plan. Met with the patient this morning. Reviewed medical records pertaining to her anticoagulation. Recommendation Thrombosed right PTFE arteriovenous graft status post declot Thrombosed left upper extremity brachial basilic fistula Thrombosed IJ dialysis catheter Chronic anticoagulation End-stage renal disease Immunosuppressed renal transplant recipient Needs ureteric stent exchange for UPJ obstruction of renal allograft; exchange December 2018 We received response from Dr. Martínez, her primary outpatient dialysis section crews activities clerk regarding anticoagulation. It appears in the record that he commenced her on low-dose warfarin???. The dose has notbeen increased be on 3 mg because her INR increased with concurrent antibiotics that were being used. Recommendations from vascular Medicine yesterday suggested apixaban could be used. We have heard back from Dr. Martínez today and he is okay with that. It would appear the patient has had documented thrombosis of her tunneled dialysis catheter, arteriovenous fistula thrombosis and now thrombosis of her right arm AV PTFE. Rema Ashford, Pharm.D., R.Ph. - 05/31/2019 2:24 PM CDT Warfarin Dosing Progress Note: More information: Shabnam Wray is a 58 y.o. female who was admitted to the hospital on 05/30/2019. Hospital Pharmacy has been consulted for inpatient warfarin management and monitoring. Warfarin Indication: Other (Comment) Other indication (comments): Arterio-Venous graft thrombosis prevention Type of therapy: Continuation Prior average daily dose: 2.3 Comorbidities: No known risk Are any of these comorbidities new with admission? No Are there any new medication interactions with admission? No Target INR: 2 - 3 Day of therapy: 1 Drug interactions include the following: Strong Potentiator (From admission, onward) None Moderate Potentiators (From admission, onward) Start Dose/Rate Route Frequency Ordered Stop 05/31/19 1700 acetaminophen tablet 1,000 mg (TYLENOL) 1,000 mg oral 4 times daily 05/31/19 1247 Potentiating (From admission, onward) Start Dose/Rate Route Frequency Ordered Stop 05/31/19 1700 acetaminophen tablet 1,000 mg (TYLENOL) 1,000 mg oral 4 times daily 05/31/19 1247 Enzyme Inducers (From admission, onward) None Binders (From admission, onward) Start Dose/Rate Route Frequency Ordered Stop 05/30/19 2130 sevelamer tablet 800 mg (RENVELA) 800 mg oral Daily 05/30/196 07/18/19 0859 Vitamin K-Containing Medications (168h ago, onward) None Antiplatelets & Anticoagulants (168h ago, onward) Start Dose/Rate Route Frequency Ordered Stop 05/31/19 1700 warfarin tablet 3 mg (COUMADIN) 3 mg oral Once 05/31/19 1423 05/31/19 2345 05/31/19 1400 heparin (porcine) 100 Units/mL in D5W 250 mL infusion 0-40 Units/kg/hr ?? 97 kg (Dosing Weight) 0-38.8 mL/hr intravenous Continuous 05/31/19 1358 05/31/19 1358 heparin (porcine) 1,000 unit/mL injection 5,800 Units 60 Units/kg ?? 97 kg (Dosing Weight) intravenous As needed 05/31/19 1358 05/31/19 1358 heparin (porcine) 1,000 unit/mL injection 2,900 Units 30 Units/kg ?? 97 kg (Dosing Weight) intravenous As needed 05/31/19 1358 05/31/19 1300 warfarin management (COUMADIN) oral Daily 05/31/19 1247 05/30/19 1739 heparin (porcine) 1,000 unit/mL injection 5,800 Units 60 Units/kg ?? 97 kg (Dosing Weight) intravenous Once 05/30/19 1738 05/30/19 1806 INR reversal agents were not given. Warfarin Reversal Agent Administrations (last 168 hours) Vitamin K and K-Centra None FFP Administrations During Encounter (Filter: EAP GENERAL TRANSFUSE FFP Medications Shown) None Warfarin Administrations (last 168 hours) None INR (no units) Date Value Status 05/31/2019 1.5 Final 05/30/2019 1.6 Final A/P: Continuing Warfarin therapy for Arterio-Venous graft thrombosis prevention with an INR Goal of 2 to 3. Last dose was administered on 05/29/19 and the INR was 1.6 upon admission. INR was 1.5 today.No new drug-drug interactions. Therefore, Warfarin order of 3 mg (~20% dose increase) has been placed for tonight. The pharmacist team will continue to follow patient's clinical progress daily until discharge from the hospital. Rema Ashford PharmElvia., R.Ph. Contact [phone] with any questions about this note. Jefferson Farfan M.D. - 05/31/2019 7:30 AM CDT Thombosis Arteriovenous Fistula Initial (HCC) SUBJECTIVE Events over the past 24 hours: No acute events overnight. She has remained afebrile and hemodynamically stable. She has no concerns on rounds this morning andis ready to proceed with surgery. She has been NPO since midnight for her operation today. OBJECTIVE VITAL SIGNS Temperature: [36.4 ??C-36.9 ??C] 36.4 ??C Heart Rate: [73-82] 75 Resp Rate: [12-20] 20 Blood Pressure: (122-174)/(68-98) 142/68 SpO2: [87 %-100 %] 95 % Flow Rate (L/min): [3 L/min] 3 L/min Weight: [97.7 kg] 97.7 kg BMI (Calculated): [36.3 kg/m??] 36.3 kg/m?? Pulse Rate: [62-81] 75 Respiratory Effort: Unlabored (05/31/19 1200 : Rukhsana, Mable, R.N.) I/O 05/30 0000 - 05/30 2359 05/31 0000 - 05/31 2359 P.O. 500 Maintenance IV 700 Continuous Medications 33.8 118.9 Total Intake(mL/kg) 533.8 (5.5) 818.9 (8.4) Blood 50 Total Output 50 Net +533.8 +768.9 Intake/Output Summary (Last 24 hours) at 05/31/2019 1629 Last data filed at 05/31/2019 1129 Gross per 24 hour Intake 1352.72 ml Output 50 ml Net 1302.72 ml Constitutional Appearance: Normal appearance. HENT Head: Normocephalic and atraumatic. Mouth/Throat: Mouth: Mucous membranes are moist. Eyes Extraocular Movements: Extraocular movements intact. Conjunctiva/sclera: Conjunctivae normal. Neck Musculoskeletal: Normal range of motion. Cardiovascular Rate and Rhythm: Normal rate and regular rhythm. Pulmonary Effort: Pulmonary effort is normal. Abdominal Palpations: Abdomen is soft. Musculoskeletal Normal range of motion. Comments: RUE: No palpable thrill at site of AV graft in proximal RUE. Small area of erythema adjacent to prior surgical incision. Incision is clean, dry, and intact. Skin General: Skin is warm and dry. Neurological General: No focal deficit present. Mental Status: She is alert and oriented to person, place, and time. Mental status is at baseline. Psychiatric Mood and Affect: Mood normal. Behavior: Behavior normal. LABORATORY STUDIES Recent Labs 05/31/19 0545 NA 140 K 3.7 CL 100 MG 1.7 CALCIUM 8.7 GLUCOSE 87 BUN 18 CREATININE 4.90 H Recent Labs 05/31/19 0545 WBC 5.5 HGB 8.7 L HCT 27.4 L PLT 143 L INR 1.5 PT 17.0 H APTT 60 H Lines, Drains, and Airways Peripheral IV Peripheral IV Catheter 05/30/19 18 G Left Wrist 1d 1h Hemodialysis catheter Hemodialysis Catheter Permanent (tunneled, implanted) Right Chest 26d 6h Hemodialysis AV Access Retired (Do not use) Hemodialysis AV Access Right AV Fistula 5759d 15h Hemodialysis AV Access Right AV Fistula 25d 16h Hemodialysis AV Access Left AV Fistula 110d 2h Wound Incision 05/06/19 Arm Right;Upper 25d 4h Incision 05/31/19 Arm Mid 4h ASSESSMENT / PLAN Hospital Problems as of 05/31/2019 1. * (Principal) Thombosis Arteriovenous Fistula Initial ([facility]) 2. Complication Kidney Transplant ([facility]) 3. Chronic Kidney Disease Stage 5 Glomerular Filtration Rate Less Than 15 ([facility]) 4. Transplant Renal ([facility]) 5. Obstruction Ureter Ms. Wray is a 58 year old female with ESRD with prior kidney transplant, now requiring hemodialysis, who underwent right arm brachio-basilic AV graft using Propaten graft on 05/06. 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 She was admitted yesterday with AV graft thrombosis in the RUE. We are planning to take her to the operating room today to perform a right AV graft thromboembolectomy, with possible balloon angioplasty of the venous anastomosis and fistulogram. PLAN ?? OR today for AV graft thromboembolectomy ?? Continue immunosuppressive medications for kidney transplant including Prograf, Cellcept, and Prednisone ?? MWF dialysis - she will receive inpatient dialysis Sunday prior to discharge ?? Diet: NPO for OR today ?? Activity: as tolerated ?? VTE Prophylaxis: N/A due to therapeutic anti-coagulation ?? GI Prophylaxis: not indicated ?? Bowel Regimen: Senokot S ?? Indwelling Catheter: not applicable ?? Drain: not applicable ?? Pain: pain well-controlled on oral pain meds and Valium ?? Surgical Incision: prior surgical incision well healed ?? Antibiotics: perioperative antibiotics completed ?? Anticipated Disposition: Home, unknown at this time The above plan was discussed with Dr. Yu and Dr. Roger who are in agreement. Please do not hesitate to contact the [facility] service at pager #[phone] with any questions or concerns. Jefferson Farfan M.D. Pager: [phone] documented in this encounter Consult Notes Pretty Bray M.A., C.T.T.S. - 06/02/2019 10:49 AM CDTAssociated Order(s): IP CONSULT TO INTERNAL MEDICINE NICOTINE DEPENDENCE SUBJECTIVE Consults REASON FOR CONSULT Admitting Service: Vascular Surgery Reason for Consult: Tobacco Use Disorder HISTORY OF PRESENT ILLNESS Shabnam Wray is a 58 y.o. female who was seen at [facility] and is being evaluated for Tobacco Use Disorder. Tobacco Status: Social History Tobacco Use Smoking Status Current Every Day Smoker ??? Packs/day: 0.50 ??? Years: 45.00 ??? Pack years: 22.50 ??? Types: Cigarettes ??? Start date: 08/20/1973 Smokeless Tobacco Never Used Tobacco use history: Patient averages 3-10 cigarettes per day, and usually smokes her first cigarette within 30 minutes of waking. She reports during the summer months she smokes more than in the winter months. Shabnam started using tobacco at the age of 14. She has made 2 quit attempts with her longestperiod of abstinence being 11 day(s). Shabnam has tried stopping using various methods such as stopping unassisted / cold turkey / willpower only and nicotine gum. Patient has relapsed due to strong cravings and I finally said I just can't do this. . The patient has experienced the following withdrawal symptoms: craving, desire to smoke and irritability. Patient reports specific triggers are: talkingon the phone, drinking coffee, after eating, celebrating, having a family argument, feeling angry and feeling sad. Motivation: Shabnam shares that she is extremely motivated to stop using tobacco at this time. She rates importance of quitting at 9/10 and her confidence in ability to quit at 9/10. Her reasons to quit are to be able to live longer and to improve health . Perceived Barriers to quitting: The patient enjoys smoking. OBJECTIVE Co-occurring Problems: The patient does not have a history of mental illness. The patient does not drink alcohol. Fagerstrom score is 4/10. Patient states no contraindications to nicotine replacement. Patient states she has may have contraindications to Varenicline because of low kidney function. ASSESSMENT / PLAN 1. Tobacco use disorder Ms. Wray has initiated a quit attempt and plans to remain tobacco free. Time was spent discussing with the patient the neurobiology of nicotine addiction and the rationale for using medications tohelp with cessation. Education was provided on the medications for cessation and all questions were a nswered. The following is consistent with assessment and patient preference: The patient is currently using 14 mg nicotine patch which should be continued. Shabnam reports she is not experiencing any symptoms of withdrawal. Medication Plan: Discharge medications will be prescribed by a [facility] The following discharge medications are recommended for the patient: Nicotine patch: 14 mg Initial doses for 4-6 weeks then taper dose in 7 to 14 mg steps every 2 to 4 weeks based on patient's report of withdrawal symptoms, urges, and comfort. Adverse effects may include nausea (reduce patch dosage), local patch reaction such as redness or itching (use of topical hydrocortisone cream and rotating patch can reduce local reaction), severe site reaction (e.g. edema, blistering) Nicotine mini lozenge: 2 mg 1-2 mini lozenges every 1-2 hours as needed to control craving. Adverse effects may include mouth soreness, nausea (which tends to lessen over time, though dose should be reduced if nausea develops). I advised the patient that if she experiences any adverse effects from the medication, that she should stop taking and contact their health care provider. This medication plan is within approved guidelines and patient was screened for contraindications, provided education on medications and reviewed side effects. Behavioral Plan: Cognitive and behavorial techniques for coping with urges to smoke were reviewed as well as planningfor triggers, changing routines, and getting support. Strategies such as avoid places, people or activities that seem to trigger urges to smoke, distraction , use NRT, thought stopping and visualization were discussed to help manage urges and cravings. The patient did accept the booklet entitled My Path to a Smoke-Free Future. Follow-Up: I encouraged Shabnam Wray to contact me with any questions or concerns. I provided the patientwith educational materials. Provided patient with [facility] contact information.. Patient is ready to learn, No apparant barriers to learning were identified. Patient understands andagrees with plan. 40 minutes of our visit was spent on tobacco use disorder counseling. Pretty Bray M.A., MilliT.T.S. 06/02/2019 10:49 AM Chiara Rod L.G.S.W., M.S.W. - 06/01/2019 10:45 AM CDTAssociated Order(s): IP CONSULT TO CARE MANAGEMENT; IP CONSULT TO CARE MANAGEMENT Psychosocial Assessment SUBJECTIVE DEMOGRAPHIC INFORMATION Referral Source: CM/SW Referral Referral Reason: Advanced Directives Person(s) present during interview: Patient Primary care clinic and provider: Patient reports she has a PCP at the [facility], but cannot think of their name. Primary Language: Honduran [employer] Used: No Legal Information: Legal Decision Maker: Self Advance Directives: N/A Advance Directives Status: Information given Citizenship: Citizenship: [place] Citizen Resident Status: [place] Resident REASON FOR CONSULT Advanced Directives Disclaimer: The patient was advised regarding the [...] are mandated reporters and they reported understanding. Patient did not require Senior Linkage Line information due to age. HISTORY OF PRESENT ILLNESS Patient reports she was admitted hospital after Sunday dialysis due her blood ???clotting. Please review EHR for additional information SOCIAL HISTORY Early growth and development: The patient met social and developmental milestones as expected. Family of Origin: Patient reports that she has sister but that she 2 years ago. Marital Status / Family / Household Status: General comments: Patient resides in a 2 level town house with her father. Her mother is in the memory care unit. Patient also has a daughter and 2 grandchildren. Support Systems: Parent, Children, Friends/neighbors. We have not received permission to contact them. Primary caregiver: Self Support System: Parent, Children, Friends/neighbors Education: High school (9-12/GED) Employment: Other (comment) Disability Psychosocial Risk Factors impacting the patient: None Abuse, Neglect, Maltreatment, Trauma: Current: None reported. Past: None reported. ENVIRONMENTAL SUPPORTS Current Living Situation: Private residence Patient's Home Environment: Two/Multiple Story House-patient reports there is 1 step to enter the town house. There is a normal flight of stairs to enter the basement and the patient denies any concerns with navigating these. Anticipated modifications to the patient's home environment: None, Patient reports no anticipated modifications needed to the home FUNCTIONAL STATUS (ADL's and IADL's) Functional Status: Independent Level of Assistance: Independent Dressing: Independent Feeding: Independent Bathing: Independent Grooming: Independent Toileting: Independent Transfer to/from Bed, Chair, Etc.: Independent Mobility: Independent Meal Prep: Independent Medication Setup/Administration: Independent Telephone Use: Independent Housekeeping: Independent Shopping: Independent Managing Finances: Independent Behavior: Oriented Communication: Can write, Talks, Understands speaking, Understands Honduran, Reads It is anticipated that the patient will need assistance with None. 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 Informal support is provided by her daughter, friends, and her dad. FINANCES/INSURANCE Primary insurance: MEDICARE A AND B Secondary insurance: [place] MEDICAID Income Information Does the Patient have any Financial Concerns?: No Income Source: Disability (Comment) Income/Expense Information: Income meets expenses ADVANCE DIRECTIVES Advance Directives: Patient would like information, Patient does not have advance directive DISCHARGE PLANNING Barriers To Discharge: None Strengths: Premorbid level of function, Support of immediate family, Attitude of family, Attitude ofself, Ability to acquire knowledge, Support of extended family/friends, Home design Type of Residence: Private residence Support Systems: Parent, Children, Friends/neighbors Assistance Recommended after Discharge: None Home Care Services: No Anticipated Discharge Destination: Home or Self Care Does the patient need discharge transport arranged?: No OBJECTIVE MENTAL HEALTH Mental Health History: Patient reports that she has a history depression. She reports she currently is feeling a little down and frustrated due to recurring hospitalizations. Current Psychological Symptoms: Patient Appearance: Healthy, Well-groomed, Relaxed Behaviors Observed: Calm, Pleasant, Interactive Patient Level of Consciousness: Alert and oriented Status of Patient's Memory: Intact Patient Cooperation: Cooperative, Forthcoming, Reliable Patient Mood: Euthymic Patient Affect: Mood-congruent Quality of Patient's Speech: Loud Descriptor of Thought Content: No abnormality Thought Process Descriptor: Intact, Logical and goal-directed Sleep: Restful and sound Appetite: Unchanged Anhedonia: Denies Concentration: Patient's mental status was not formally tested Perception: Does not appear to respond to internal stimuli Anxiety Symptoms: No symptoms of panic, No obsessions or compulsions, No ruminative worry Depressive Symptoms: Depressions in response to external stressors Level of Judgement: Intact Suicide Risk and Safety Risk Assessment: Attempted suicide within last 30 days?: No Substance abuse history or abuse within last 30 days?: No Attempting or threatening suicide?: No Attempting or threatening self-harm?: No Expressing suicidal thoughts without intent?: No Expressing self-harm thoughts without intent?: No Recent evidence of psychiatric disorder?: No Response to question indicating hopelessness?: No Isolated from others?: No Mood inconsistent with state of illness?: No Fear of prison/extended hospitalization?: No Coping with recent loss/disruption in support system?: No Homicidal: Homicidal Risk Current Homicidal Ideation: No SUBSTANCE USE Substance Use Extended History Alcohol: Alcohol Current or past use: Yes Pattern of use: Patient reports a rare glass of wine Cannabis: Cannabis current or past use: Yes Pattern of use: Patient reports she has tried marijuana, but does not like how it makes her feel Nicotine: Nicotine current or past use: Yes Type: cigarettes Pattern of use: Patient reports she smokes half a pack per day Current Stressors Current and reoccurring hospitalizations are her identified primary stressors. Coping Skills/Strengths Self-talk, Family support, Time with friends, Insightfulness and Motivation Premorbid level of function, Support of immediate family, Attitude of family, Attitude of self, Ability to acquire knowledge, Support of extended family/friends, Home design ASSESSMENT / PLAN IMPRESSION Referral received for advance directive. Met with patient. Education provided on the benefits of completing an advance directive and resources that may assist them in this process including access to anotary as well as provision of ???Advance Health Care Planning: Making Your Wishes Known?? [id number] booklet. The patient report no further questions or concerns regarding advance directives Apsychosocial assessment was also completed. The patient reports that she is very frustrated and feeling a little down due to ???always needing to have something done in the hospital or at the clinic.?? She reports that she has made plans to go to [place] for 2 weeks leaving June 10 to visit friends and go to a football game. She stated that she has found a dialysis center where she will be staying and is working to find an anticoagulation clinic as well. She stated ???I will be pissed if this disease causes me to not be able to go. She expressed frustration around and having to plan her life around her dialysis schedule and stated that it is even more frustrating when she does schedule her life around her kidney failure and that still is able to impact what she plans the and wants to do. She reports that she is usually very good a pulling herself out of it when she feels bad and reports that she still is having moments where I am very tearful. She reports that her mood is swinging back and forth. She stated she has been waiting for a new kidney for two years and that she has things to live for like my daughter, grandchildren,and great friends. She stated that she had been helping to care for her mother with Alzheimer's, but that about 4 months ago they put her in memory care. She stated it is just a really hard disease to watch and go through. She stated that she, overall, is just really frustrated. She reports beingindependent with all ADLs and denied having any services or using and DME. She reports her dad will provide transportation when she is ready to dismiss. Patient is a very pleasant 58 year old female admitted for Thombosis Arteriovenous Fistula Initial. She was alert and oriented. She was engaged in the discussion and appears to be coping appropriately with hospitalization. Her volume was loud, but her rate of speech and affect were within normal limits. The patient appears to have an understanding of how to complete an advance directive and report awareness of resources to assist them. She denied having further questions or concerns at this time. INTERVENTIONS - Advance directive information - Rapport building - Active and reflective listening - Psychosocial assessment - Education on the role of inpatient social work PLAN ?? Patient plans to dismiss home self-care when medically ready 1) Patient to complete an advance directive if desired. 2) Notary needs to witness signature, intensive care unit registered nurse can arrange. 3) Patient should provide a copy for the medical record once complete. 4) Social Work is available should further questions arise. Anticipated barriers to the transition of care/plan: None at this time Reji Melendez, M.S.W. 06/01/2019 Armani Judd M.D., Ph.D. - 05/31/2019 3:22 PM CDTAssociated Order(s): IP CONSULT TO VASCULAR MEDICINE SUBJECTIVE Consults REASON FOR CONSULT multiple clotted AVF CHIEF COMPLAINT / REASON FOR CONSULT HISTORY OF PRESENT ILLNESS Ms. Wray is a 58 y.o. female admitted on 05/30/2019 for Failure Renal End Stage (HCC) [N18.6] Complication Kidney Transplant (HCC) [T86.10] Transplant Renal (HCC) [Z94.0] Thombosis Arteriovenous Fistula Initial ([facility]) [T82.868A]. The patient will need now anticoagulation because of thrombosis of arterial venous fistula status post thrombectomy and angioplasty, and therefore, we are asked to advise regarding anticoagulation. This very pleasant 58-year-old woman has end-stage renal disease because of poorly controlled hypertension and is on dialysis after her kidney transplant failure. She had a renal transplant in 2008, but failed in 2017. She had 2 previous IV fistulas, 1 in the left upper extremity and another 1 in the right upper extremity. She had a recent right arm brachial axillary IV graft (6 mm x 40 mm Propaten graft) placed just in May 06, 2019. Patient also has known chronic right internal jugular vein thrombosis. She also has a history of right ureteral obstruction that required stenting. She has been on anticoagulation with warfarin since placement of the graft. But on admission her INR was 1.6. She was within the therapeutic range when she was discharged from the hospital after putting the IV graft. The patient has normocytic anemia, not on EPO or iron supplementation. She has hyperparathyroidism on Hectorol. All of those complications related to renal failure. She does not have a history of bleeding, either spontaneous or while on anticoagulation. The following portions of the patient's history were reviewed and updated as appropriate: allergies,current medications, family history, medical history, social history, surgical history, problem list, labs, diagnostics tests. I reviewed the pertinent clinical notes in the electronic health record. REVIEW OF SYSTEMS 14 systems reviewed. Pertinent positives and pertinent negatives are documented in the history of present illness. OBJECTIVE VITALS BP 142/68 Pulse 75 Temp 36.4 ??C (Oral) Resp 20 Ht 164 cm Wt 97.7 kg SpO2 95% BMI 36.33 kg/m?? PHYSICAL EXAMINATION Body mass index is 36.33 kg/m??. Physical Exam General: Well appearing adult; alert; in no distress. Respiratory: Non-labored breathing. Lungs clear to auscultation bilaterally. No Rhonchi, rales or rubs. Cardiovascular: Regular rate and rhythm; S1, S2 normal. No murmur. No gallop, or rub. Gastrointestinal: Abdomen soft, non-distended; bowel sounds present and active; non-tender to palpation throughout. No hepatosplenomegaly. Skin: No rashes or lesions noted. No jaundice noted. No significant bruising. Extremities: Upper extremities with swelling, deformities related to arterio- venous fistulas. Lower extremities well perfused. No edema. Peripheral Vascular: DP and PT pulses were all 4/4. ASSESSMENT / PLAN 1. Thrombosis of the right arm brachial axillary IV graft. I told the patient that she does not have any tendency for thrombus formation, that she never had any venous or arterial thrombosis. Her legs look beautiful without any signs of venous insufficiency. It is obviously a local cause related to brachial axillary AV graft either structure or other abnormality to pump thrombosis in this site. Hopefully, our colleagues from Vascular Surgery were able to fix this local cause and in this way lower the risk of recurrence of thrombosis. Nevertheless, recent thrombosis requires now anticoagulation for a minimum of 3 months. Total duration will depend on the clinical course. 1. Renal failure. We have very limited options in terms of anticoagulation. I told the patient that now that I will definitely pay more attention to an appropriate treatment of brachial axillary graft and make its graftless thrombogenic than meticulous control of INR, which to me is of secondary importance, yet still needs to be performed. Although we have some increasing data on effectiveness and safety of using Eliquis in patients with end-stage renal disease on dialysis for indications related to atrial fibrillation, and we have in the [place] (not in [place]) approval for the use of this anticoagulant for this group of patients, we do not have this approval for patients with venous thromboembolism. This situation of arteriovenous fistula represents somewhat different indications than any of those 2 clinical situations. Therefore, it remains unclear whether or not patient could be treated with Eliquis. If Primary Service feels it would be appropriate, patient can be used as an off-label indication with apixaban (Eliquis). I will use the dose as for venous thromboembolism. Therefore, there would be no adjustment of dosing torenal function. Patient will need to be on 10 mg for the first 7 days twice a day, then 5 mg twice aday long-term. If this option is chosen, then after 1 week of therapy with 5 mg, level of Eliquis needs to be performed 3 hours after the last dose of this medication. The patient can be seen at [facility] with the results of apixaban (Eliquis) level. If Primary Service chooses that the patient will be treated with classic coagulation, then patientneeds to stay in the hospital and be treated with IV heparin, at the same time started on Coumadin. Once the patient's INR becomes therapeutic (between 2 and 3), then IV heparin could be stopped. If the option with Eliquis is chosen patient does not need IV heparin because Eliquis will lead to full anticoagulation within 2 hours after taking the first 2 tablets. DIAGNOSTIC REVIEW All labs and diagnostic studies were reviewed. RECOMMENDATIONS: 1. Off labeled use of apixaban can be consider - decision of primary service 2. Otherwise, IV unfreactionaed heparin and warfarin. Armani Judd M.D., Ph.D. Davis Valdes M.D. - 05/31/2019 7:08 AM CDTAssociated Order(s): IP CONSULT TO NEPHROLOGY Nephrology consult (hospital) Referring Provider: Alison Romeo APRN, C.NDaviP., M.S.N. Reason for Consult: Dialysis dependent, proceeding to surgery in AM for clotted fistula SUBJECTIVE CHIEF COMPLAINT Clotted dialysis AV graft HISTORY OF PRESENT ILLNESS Ms. Wray is a 58 y.o. female past medical history of ESRD the setting of uncontrolled hypertension requiring HD on Sunday/Sunday/Sunday with previous renal transplant in 2007 which failed in 2017, 2 previous AV fistulas (one in the left upper extremity and another in the R upper extremity) with a recent right arm brachioaxillary AV graft (6 mm x 40 mm propaten graft) placed 05/06/2019, R ureteral obstruction s/p stenting, chronic right IJ thrombus, and hypertension. She has been on anticoagulation with warfarin since placement of the graft though her INR on admission was 1.6 despite being at2.1 at discharge from the AV graft hospitalization. She presented on 05/30 as a referral from the [facility] dialysis center due to concern for occlusion ofright upper extremity AV graft. She has a right sided tunneled dialysis catheter in place which she has been using placed on 05/05/2019. At the [facility], they noted that the new graft no longer had a bruit or thrill which prompted them to send her to the [facility]. Per IHD records from [facility], the thrill and bruit had been present on 05/28 IHD session though with redness/erythema/tenderness. Due to concern for cellulitis over the new graft, she has been received 1 g of IV vancomycin after dialysis with her last planned dose to be on 05/30 (6 total doses). After arriving to the ED, she was noted to be hemodynamically stable. Ultrasound of the fistula revealed an interval occlusion of the right brachial artery to axillary vein hemodialysis graft with a perigraft fluid collection that is 1.1 x 2.7 x 3.8 cm in size. The right brachial arteries notably widely patent with high resistive indices. She was placed on a vascular surgery team and is awaiting surgery this morning for thromboembolectomy. The plan is postoperatively for her to remain hospitalized with anticoagulation bridge until INR is within goal range. She normally dialyzes for 3.5 hours with a 138 sodium, 2 potassium, 2.5 calcium, and 35 bicarbonate dialysate, 350 cc/min blood flow rate. Her estimated dry weight is 97-98 kg. Her dialysis access currently a right EJ tunneled hemodialysis catheter which was a replacement of her previous non functioning left IJ tunneled hemodialysis catheter. Hectorol 2 mcg IV is administered on Sunday, Sunday andSunday. Heparin 2000 units prime and 1500 units per hour maintenance is administered during Ms. Wray's dialysis in the outpatient setting. She does occasionally have hypoxia and hypotension duringdialysis. She is on immunosuppression with mycophenolate 250 mg twice daily, prednisone 5 mg daily, and tacrolimus 2 mg twice daily due to her previous renal transplant. REVIEW OF SYSTEMS Pertinent items are noted in HPI; all other review of systems was negative. OBJECTIVE Admission Weight: 97 kg Current Weight: 97.7 kg VITAL SIGNS Temperature: [36.8 ??C-36.9 ??C] 36.9 ??C Resp Rate: [18-20] 18 Blood Pressure: (125-174)/(73-95) 125/74 SpO2: [92 %-99 %] 92 % Pulse Rate: [62-77] 67 PHYSICAL EXAM General: No acute distress. HEENT: Eyes are anicteric and noninjected. Moist mucus membranes. Skin: Erythema/tendernes/warmth over R antecubital fossa over region of AV graft Heart: RRR, normal S1/S2, no murmurs, rubs, gallops. Lungs: Normal WOB, symmetric chest rise. Lungs are CTAB, no wheezes or crackles. Abdomen: Soft, nontender. Extremities: Legs are warm/dry without edema. DIAGNOSTICS Results from last 7 days Lab Units 05/31/19 0545 05/30/19 1511 WBC x10(9)/L 5.5 7.4 HEMOGLOBIN g/dL 8.7* 9.1* HEMATOCRIT % 27.4* 28.7* MCV fL 93.2 94.1 PLATELETS AUTO x10(9)/L 143* 146* Results from last 7 days Lab Units 05/30/19 1511 SODIUM P mmol/L 137 POTASSIUM P mmol/L 3.6 BUN P mg/dL 10 CREATININE P mg/dL 3.59* CREP2 EGFR P mL/min/BSA <15* CALCIUM P mg/dL 9.2 ASSESSMENT / PLAN Ms. Wray is a 58 y.o. female past medical history of ESRD the setting of uncontrolled hypertension requiring IHD on Sunday/Sunday/Sunday with previous renal transplant in 2007 which failed in 2016, 2 previous AV fistulas (one in the left upper extremity and another in the R upper extremity) with a recent right arm brachioaxillary AV graft (6 mm x 40 mm propaten graft) placed 05/06/2019, R ureteral obstruction s/p stenting, chronic right IJ thrombus, and hypertension. She has been on anticoagulation with warfarin since placement of the graft though her INR on admission was 1.6 despite being at 2.1 at discharge from the AV graft hospitalization. She is hospitalized after the recent right upper extremity AV graft notably was lacking a thrill/bruit on Sunday at [facility] with subsequent ultrasound at [facility] revealing the graft thrombosed and there was perigraft fluid collection. This morning she is scheduled to go to the OR for thrombectomy. # ESRD secondary to uncontrolled hypertension, s/p renal transplant in 2007 s/p failure of transplant in 2016 on IHD MWF since # Thrombosed right arm brachioaxillary AV graft # History of ureteral obstruction s/p stenting # HTN # History of secondary hyperparathyroidism on Hectorol # Normocytic anemia, not on EPO or iron supplementation, transferrin saturation 28% and ferritin of 659 in April 2019 Recommendations: - no indication for dialysis today; will resume dialysis on Sunday - Renal dialysis diet when not NPO - Continue mycophenolate 250 mg twice daily and tacrolimus 2 mg twice daily - Please start prednisone 5 mg daily, which is also part of her immunosuppressive regimen post transplant - Continue Dialyvite, one tablet each evening - Please continue phosphorus binders of sevelamer 800 mg with breakfast and Tums 1000 mg (2 regular strength tablets) with lunch and dinner. Per Ms. Wray, this is the regimen she has been using athome. - Hectorol is not on [place] formulary and will not be administered while inpatient but will be resumedas outpatient - We would recommend a vascular medicine consultation while hospitalized, especially in the setting of recurrent thrombosis and expecting a future kidney transplant. - Patient is due for ureteral stent exchange; we recommend if possible for this to be completed while inpatient Standard Recommendations: - Daily weights and strict I/Os - Maintain MAP>65 mmHg - Avoid all nephrotoxins, if possible (contrast dye, unnecessary antibiotics, NSAIDs) - Renally dose/adjust all medications for GFR Staffed with Nephrology B [facility] Dr. Harrell. We will continue to follow. Please contact the Nephrology B service pager at [phone] with any questions or concerns. Anant Valdes M.D. Internal Medicine, PGY-2 05/31/19 Associated attestation - Nicole Harrell M.D., Ph.D. - 05/31/2019 3:55 PM CDT I saw and evaluated the patient, participating in the iglesias portions of the service. I reviewed the resident/fellow???s note. I agree with the resident/fellow???s findings and plan. Ms. Wray is accompanied by her father today in the hospital. She underwent declotting of her right upper extremity brachial axillary arteriovenous graft recently placed May 06, 2019. She undergoes dialysis at [facility] where it was noted on Sunday that the graft is thrombosed. She underwent thrombectomy this morning. INR was subtherapeutic on admission. She has had multiple thrombosis events. Of note also she is on chronic immunosuppression following kidney transplant which has failed which was performed at the [facility]. Surgeries performed in 2007 and kidney failed in 2016. Her prednisone is being restarted in the hospital as it was overlooked on the intake medications list. BP 142/68 Pulse 75 Temp 36.4 ??C (Oral) Resp 20 Ht 164 cm Wt 97.7 kg SpO2 95% BMI 36.33 kg/m?? Right upper extremity PTFE graft with good thrill and bruit Mucous members are moist She has a right internal jugular tunneled dialysis catheter Lung wilde are clear Heart sounds 1 and 2 with systolic murmur audible Renal allograft right lower quadrant nontender Extremities no edema #1 Complication Kidney Transplant ([facility]) #2 Chronic Kidney Disease Stage 5 Glomerular Filtration Rate Less Than 15 ([facility]) #3 Transplant Renal ([facility]) #4 Obstruction Ureter #5 Thombosis Arteriovenous Fistula Initial ([facility]) We recommend vascular Medicine input regarding anticoagulation management -this patient has had multiple venous and now graft thrombosis. She is a candidate for future kidney transplant. She is subtherapeutic on warfarin which is monitored regularly. As her next dialysis session is Sunday morning we will arrange for her dialysis Sunday morning priorto discharge. We would also like her ureteric stent exchanged while she is here if possible on Sunday. We agree with vascular surgery to patient should see smoking and should be seen by inpatient nicotine dependence Consult service. Tre Bear M.D. - 05/30/2019 2:58 PM CDTAssociated Order(s): Vascular Surgery consult (hospital) SUBJECTIVE Vascular Surgery consult (hospital) Referring Provider: Sal Rushing M.D. REASON FOR CONSULT Right brachial basilic AV graft thrombus HISTORY OF PRESENT ILLNESS Ms. Wray is a 58 y.o. female with a history significant for end-stage renal disease related to hypertensive nephrosclerosis, failed renal transplant in 2017 from 2007 requiring hemodialysis (Sunday, Sunday, Sunday), previous history of 3 failed AV fistulas in the left upper extremity underwenta right arm brachial basilic AV graft using a 6 mm x [address] graft with Dr. Yu on 05/06/2019. She did have an EBL of 800 cc during the surgery and her hospitalization extended to 05/12/2019 for anticoagulation transition from heparin to Coumadin. She returned to [facility] Emergency Department for concerns of the right brachial basilic AV graft thrombosis upon presentation, she was hemodynamically stable within normal limits and afebrile. She is largely asymptomatic. She is currently receiving vancomycin for possible underlying infection in the dialysis clinic. Ultrasound of the right AV graft reveals interval occlusion with thrombus and no detectable blood flow. The right brachial artery is widely patent with high resistance and as is the right axillary vein. There is also a 1.1 x 2.7 x 3.8 cm perigraft fluid collection. She hasno labs charted today. She mentions that on Sunday of this week there was a thrill, but today thethrill was no longer present. The current medications, allergies, medical, surgical, social, and family history sections of the chart have been reviewed and updated as pertinent. PMH/PSH Vascular Surgery VQI Screening CVD: None CAD Symptoms: None Prior CHF: None Prior CABG: None Prior PCI: None COPD: No Diabetes: None Renal Function: Stage 4 Dialysis: Hemodialysis Hypertension: Yes (controlled) Living status: Home Ambulatory status: Ambulates self Functional status: Self care OBJECTIVE VITAL SIGNS Temperature: [36.8 ??C] 36.8 ??C Resp Rate: [18-20] 20 Blood Pressure: (145-147)/(85-91) 145/85 SpO2: [98 %-99 %] 99 % Height: [164 cm] 164 cm Weight: [97 kg] 97 kg BSA (Calculated - sq m): [2.1 sq meters] 2.1 sq meters BMI (Calculated): [36.1 kg/m??] 36.1 kg/m?? Pulse Rate: [73-77] 73 PHYSICAL EXAM: General: Alert and oriented, No acute distress. Neck: Supple, Non-tender. Respiratory: Lungs are clear to auscultation. Respirations are non-labored. Breath sounds are equal. Heart: Regular rate and rhythm, no murmur appreciated. Abdomen: Soft, Non-tender, no masses. Cognition and Speech: Speech clear and coherent. Functional cognition intact. Psychiatric: Cooperative, appropriate mood & affect. Extremities: Warm, well perfused, no edema. Peripheral Vascular Pulse Exam Left Radial: 3+ Ulnar: 3+ Brachial: 2+ Right Radial: 3+ Ulnar: 3+ Brachial: 2+ WIFi Scoring System DIAGNOSTIC FINDINGS I have reviewed laboratory, imaging, and other diagnostic studies as pertinent. ASSESSMENT / PLAN #1 Right arm brachial basilic AV graft using a 6 mm x 40 mm propaten graft from 05/06/19, presenting with complete graft thrombus with patent [place] artery and vein on 05/30/19 #2 ESRD on hemodialysis since 2017 (Sun, Sun, Sun) #3 Failed Renal Transplant in 2017 from 2008 RECOMMENDATIONS Overall, this patient likely presents with a delayed AV graft failure likely related to either a procoagulant state secondary to her active smoking history or new intimal hyperplasia at the venous anastomosis resulting in distal obstruction and subsequent thrombosis. Considering the acuity of the pres entation and overall proximity to the original surgical date, this is likely secondary to a technical issue. With this being said, we will attempt a thromboembolectomy with a postoperative stay with anticoagulation bridge to achieve an appropriate INR. The procedure will be scheduled tomorrow. We discussed in detail the procedure of steps, risks, and benefits. The risks include, but not limited to, bleeding, infection, injury to surrounding structures, rethrombosis, and anesthesia associatedmortality. The patient expressed good understanding of all that was discussed during this consultation. She provided informed consent to proceed forward with the procedure outlined above. All the patient's questions and concerns were addressed during this consultation. Thank you for involving us in the care of this patient. We will admit the patient to vascular surgery, Dr. Yu's service. This consultation was supervised by Dr. Jakob Roger. Dr. Roger and Dr. Yu were in agreement with the clinical evaluation, physical examination, assessment, and plan. Electronically signed by: Shasta Bear M.D. 05/30/19 5:20 PM documented in this encounter Nursing Notes Virgilio Wynne R.N. - 06/06/2019 12:43 PM CDT Patient meets discharge criteria, AVS was printed and gone over with patient. Patient is going home to self care. Proper management for INR was setup. Virgilio Wynne R.N. - 06/06/2019 12:38 PM CDT Problem: PAIN - ADULT Goal: PT VERBALIZES/DEMONSTRATES ADEQUATE COMFORT LEVEL OR BASELINE Outcome: Adequate for Discharge Problem: KNOWLEDGE DEFICIT Goal: Patient/family/caregiver demonstrates understanding of disease process, treatment plan, medications, and discharge instructions Outcome: Adequate for Discharge Problem: INFECTION - ADULT Goal: Absence of infection during hospitalization Outcome: Adequate for Discharge Problem: SKIN/TISSUE INTEGRITY Goal: Skin/Tissue integrity maintained or improved Outcome: Adequate for Discharge Goal: Oral and Nasal mucous membranes remain intact Outcome: Adequate for Discharge Problem: SAFETY ADULT Goal: Maintain a safe environment Outcome: Adequate for Discharge Problem: DISCHARGE PLANNING Goal: Patient discharge needs identified Outcome: Adequate for Discharge Problem: SAFETY ADULT - RISK FOR FALL AND OR FALL INJURY Goal: Patient remains free from fall/fall injury Outcome: Adequate for Discharge Shift Goals: Clinical Goals for the Shift: Get out of room for activities. Identify possible barriers to meeting goals/advancing plan of care: none End of Shift Summary: Patient meets discharge criteria, AVS was printed and gone over with patient. Patient is going home to self care. Huber Ya R.N. - 06/04/2019 6:19 PM CDT Shift Goals: Clinical goals for the shift: Pt will remain vitally stable and maintain heparin drip throughout this 12 hour shift for anticoagulation goals. Identify possible barriers to meeting goals/advancing plan of care: NA End of Shift Summary: Pt remained vitally stable. Pt was dialyzed today as well. Heparin drip is still running continuously. INR goal is 2.5. Zaida Chavarria R.N. - 06/01/2019 5:10 AM CDT Shift Goals: Clinical Goals for the Shift: Manage R arm pain. ' Identify possible barriers to meeting goals/advancing plan of care: Post op day 1 End of Shift Summary: Pt managed 5-8/10 pain in R arm with intermittent oxycodone, tylenol, and elevation. Rested fairly well overnight with no complaints. documented in this encounter OR Notes Op Note - Guillermo Yu M.B.BDaviS. - 05/31/2019 9:38 AM CDT FULL OP NOTE Procedure(s) (LRB): Right brachio-axillary arterio-venous graft thromboembolectomy, Balloon angioplasty of venous anastomosis (Right) FISTULOGRAM WITH OR WITHOUT INTERVENTION UPPER EXTREMITY (Right) Surgeon(s) and Role: * Guillermo Yu M.B.B.S. - Primary * Jakob Rivera M.D., M.P.H. - Derrick Boat Leverman * Jefferson Farfan M.D. - Other Inspector Mechanical * Tre Bear M.D. - Other Inspector Mechanical Anesthesia Type General Pre-operative Diagnosis AV Graft thrombosis in the RUE Post-operative Diagnosis AV Graft thrombosis in the RUE Findings Fresh thrombus retrieved from both the arterial and venous ends of the graftotomy followed by brisk inflow and adequate outflow, with the assistance of a balloon angioplasty of the outflow anastomosis Complications None Description of Procedure Patient was brought to the operating room placed in a supine position. General endotracheal anesthesia was obtained. Perioperative antibiotics were given. A transverse upper arm incision was made on top of the graft and the graft was circumferentially dissected. A transverse graftotomy was made. A 4 Ara catheter was passed centrally followed by retrieval of acute thrombus and moderate amount of back bleeding. I have performed a fistulogram which showed tight stenosis of the central anastomosis which I serially treated with a balloon angioplasty up to a 7 mm panel saw operator balloon. There was still about 30% stenosis but because this is a relatively recentanastomosis, I did not want to be too aggressive with my intervention. Because of the location over the shoulder, I chose not to place a stent across the anastomosis. We then passed the Ara catheter towards the arterial end and once again were able to retrieve fresh thrombus which was followed by excellent inflow. I then placed a Kumpe the catheter in the brachial artery and performed an angiogram. There was no stenosis at the arterial anastomosis and the outflow was excellent to the arm. There was great flow through the fistula. I closed the graftotomy with serial interrupted sutures. There was now palpable thrill in the graft. The skin incision was closed in the patient was extubated prior to transferring her to the recovery area. Specimens None Drains None Estimated Blood Loss 50 mL Implants None Micheal AdenB.S. Brief Op Note - Jakob Rivera M.D., M.P.H. - 05/31/2019 9:38 AM CDT BRIEF OP NOTE Procedure(s) (LRB): Right brachio-axillary arterio-venous graft thromboembolectomy, Balloon angioplasty of venous anastomosis (Right) FISTULOGRAM WITH OR WITHOUT INTERVENTION UPPER EXTREMITY (Right) Surgeon(s) and Role: * Guillermo Yu M.B.B.SDavi - Primary * Jakob Rivera M.D., M.P.H. - Derrick Boat Leverman * Jefferson Farfan M.D. - Other Inspector Mechanical * Tre Bear M.D. - Other Inspector Mechanical Anesthesia Type General Pre-operative Diagnosis AV Graft thrombosis in the RUE Post-operative Diagnosis AV Graft thrombosis in the RUE Findings Palpable thrill over fistula. Palpable radial pulse at end of procedure. Complications None Specimens None Drains None Estimated Blood Loss 5 mL Implants None Jakob Rivera M.D., M.P.H. Fellow Division of Vascular and Endovascular Surgery [phone] documented in this encounter ED Notes Maddison George M.D. 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 This was placed on 05/06/19 by Vascular Surgery, but she has still been using the tunnel dialysis catheter she stillhas in place. Today, the patient presented for her dialysis, at which time her new graft was noted to not have bruit or thrill, causing concern for occlusion. She was referred here to the ED for further evaluation. Here, the patient states that she has had tenderness in her right arm at the site of the fistula ever since the surgery. She denies any worsening pain, but notes that the area does appear a little more erythematous. She also denies any drainage from the site, increased swelling, or fevers. She has been receiving 1 g of IV vancomycin at her dialysis infusions for the last few sessions dueto concern about erythema and warmth of the graft. REVIEW OF SYSTEMS Constitutional: Negative for fever. HENT: Negative for sore throat. Eyes: Negative for visual disturbance. Respiratory: Negative for shortness of breath. Cardiovascular: Negative for chest pain. Gastrointestinal: Negative for abdominal pain. Genitourinary: Negative for dysuria. Musculoskeletal: Positive for extremity pain (right upper extremity at graft site, unchanged). Negative for joint swelling. Skin: Negative for rash. Positive for erythema at site of right upper extremity AV graft. Neurological: Negative for headaches. OBJECTIVE Initial Vitals Temperature Pulse Rate Heart Rate Resp Rate Blood Pressure SpO2 05/30/19 1135 05/30/19 1135 -- 05/30/19 1135 05/30/19 1135 05/30/19 1135 36.8 ??C 77 18 (!) 147/91 98 % Pain Score 05/30/19 1315 6 PHYSICAL EXAMINATION Constitutional: No distress. HENT: Head: Atraumatic. Mouth/Throat: Mucous membranes are moist. Eyes: Conjunctivae are normal. Neck: Normal range of motion. Cardiovascular: Normal rate. Pulses are strong and palpable. Pulmonary/Chest: Effort normal. No tachypnea. No respiratory distress. Abdominal: Soft. She exhibits no distension. There is no tenderness. Musculoskeletal: Normal range of motion. Comments: No lower extremity swelling or tenderness. Neurological: She is alert and oriented to person, place, and time. Skin: Skin is warm and dry. Erythemia of area and surgical wound noted. Tenderness and erythema over right upper extremity graft site. No fluctuance, no discharge. Not warm. Surgical site appears to be well-healing. No palpable thrill. Psychiatric: She has a normal mood and affect. Nursing note and vitals reviewed. ASSESSMENT/PLAN Impression and Plan 58 year old female, with dialysis- dependent ESRD status post recent right arm brachio-basilic AV graft (05/06/19), presents with concern for occlusion of the graft. On exam, the area is erythematous, without any fluctuance, warmth, or drainage. There is no thrill. Plan to obtain basic labs and consultVascular Surgery and IR for further evaluation and management. Disposition pending these consultations and their recommendations. At the end of my shift (4pm), her care was endorsed to Dr. Moody. Final Diagnoses: as of May 30 1738 Thombosis Arteriovenous Fistula Initial (HCC) Failure Renal End Stage (HCC) Complication Kidney Transplant (HCC) Transplant Renal (HCC) I have personally seen and examined this patient. I have fully participated in the care of this patient. I have reviewed all clinical information including history, physical exam, orders, and plan. I agree with the note of the resident. I personally performed the services described in this documentation, as scribed in my presence, and it is both accurate and complete. Maddison George M.D. 05/30/19 180 Maddison George M.D. 05/30/19 1809 Maddison George M.D. 05/31/19 0728 TOT Paul Gill M.D. - 05/30/2019 4:00 PM CDT Assumed care of this patient at 4:00 p.m.. Briefly this is a 58-year-old woman with ESRD, on Sunday hemodialysis with last dialysis run earlier today, presenting with acutely occluded fistula. Vascular surgery has been consulted. They recommended intervention by interventional radiology, however interventional radiology did not feel that they have anything to offer. The patient will be admitted to vascular surgery on a heparin drip with likely intervention tomorrow to attempt to recanalize the graft. VITAL SIGNS BP (!) 174/95 Pulse 68 Temp 36.8 ??C (Oral) Resp 18 Ht 164 cm Wt 97.7 kg SpO2 94% BMI 36.33 kg/m?? Final Diagnoses: as of May 31 26 Thombosis Arteriovenous Fistula Initial (HCC) Failure Renal End Stage (HCC) Complication Kidney Transplant (HCC) Transplant Renal (HCC) Paul Gill M.D. Resident 05/31/19 0036 Sal Rushing M.D. - 05/30/2019 1:47 PM CDT SUBJECTIVE CHIEF COMPLAINT/REASON FOR VISIT Dialysis Fistula oclussion HISTORY OF PRESENT ILLNESS Patient seen in conjunction with a scribe. See associated documentation for details of the history of present illness and review of systems. REVIEW OF SYSTEMS OBJECTIVE Initial Vitals Temperature Pulse Rate Heart Rate Resp Rate Blood Pressure SpO2 05/30/19 1135 05/30/19 1135 -- 05/30/19 1135 05/30/19 1135 05/30/19 1135 36.8 ??C 77 18 (!) 147/91 98 % Pain Score 05/30/19 1315 6 PHYSICAL EXAMINATION Constitutional: She is cooperative. HENT: Mouth/Throat: Oropharynx is clear and moist. Mucous membranes are moist. Eyes: Pupils are equal, round, and reactive to light. Right conjunctiva is not injected. Left conjunctiva is not injected. No scleral icterus. No scleral icterus. Neck: No neck rigidity. Cardiovascular: Normal rate, regular rhythm, S1 normal and S2 normal. No murmur heard. Pulses: Radial pulses are 2+ on the right side, and 2+ on the left side. Capillary refill:Right upper extremity < 2. , Pulmonary/Chest: Effort normal and breath sounds normal. She has no wheezes. She has no rhonchi. Shehas no rales. Abdominal: Soft. Non-distended. There is no tenderness. There is no rebound and no guarding. Musculoskeletal: No tenderness or deformity. Neurological: She is alert and oriented to person, place, and time. Normal speech. No facial asymmetry, no gross focal motor or sensory deficits Skin: Skin is warm and dry. Right axilla with healing surgical incision, no erythema or discharge, no fluctuance, palpable vascular graft to right upper arm, mildly tender to palpation, distal aspect just proximal to the elbow ismildly erythematous, no palpable thrill or bruit to auscultation, palpable brachial pulse in the AC TDC to right anterior chest, no erythema or tenderness, dressing is clean, dry and intact Psychiatric: She has a normal mood and affect. Vitals reviewed. ASSESSMENT/PLAN This is a 58-year-old woman presenting with concerns of occlusion to the right upper extremity dialysis fistula graft. She is afebrile, hemodynamically stable, alert and conversant at the time of my exam. She is relatively asymptomatic. Has not noticed any new drainage. Persistent erythema suggestive of possible underlying infection but she has already received vancomycin today at dialysis. There is no palpable thrill or bruit on exam to the graft. She does have good arterial pulses distal to the graft. Differential includes graft thrombus leading to occlusion or stenosis versus infection. We will obtain an ultrasound fistula study to evaluate further and plan on consulting vascular surgery. At this point do not think she requires any lab investigations Disposition pending the results of the workup and clinical course in the ED. This patient was seen and evaluated with Dr. George ED Course as of May 30 1702 Fri May 30, 2019 1535 US shows graft thrombosis. Discussed with vascular surgery. They will evaluate the patient, however have recommended we discuss with IR as well. Awaiting callback from IR US Hemodialysis Fistula-Graft Right 1553 Spoke with IR, they are reviewing the case. 1630 IR has reviewed and advised that given how recent the graft was placed this should be managed by vascular surgery. Vascular surgery was notified and their evaluation and recommendations are pending. 1635 At the conclusion of my shift care of this patient was signed out to Dr. Gill. At that time patient was awaiting vascular surgery evaluation. 170 Subtherapeutic INR INR: 1.6 Sal Rushing M.D. Resident 05/30/19 1702 Angelica Rea R.N. - 05/30/2019 11:37 AM CDT Patient presents with dialysis fistula occlusion. She had a RUE fistula placed about 2 weeks ago. She was at dialysis today and they could not feel flow through the fistula. She completed her dialysis run through her tunneled catheter. She was referred here for manipulation of the fistula. Angelica Rea R.N. 05/30/19 1138 documented in this encounter Miscellaneous Notes Hospital Course - Farzana Amaya, CHRISTOPHER, C.N.P. - 05/31/2019 5:01 PM CDT Ms. Wray was admitted to Dr. Yu's surgical service from an outside facility after it was noted that her dialysis fistula no longer had a palpable thrill present. Ultrasound performed on 05/30/2019 confirmed interval occlusion of the right brachial artery to axillary vein hemodialysis graft. She proceeded to the operating room on 05/31/2019 where she underwent right upper extremity AV fistulogram. She tolerated the procedure well and was transferred to the vascular progressive care unit postoperatively. Pain was managed with intravenous pain medications, which was later transitioned to oral pain medications with adequate control. Right upper extremity incision ell approximated, no erythema or drainage. No sutures to be removed. Right upper extremity distal peripheral vessel with palpable radial pulse. Palpable thrill noted over the right upper extremity AV fistula. Neurological exam was within normal limits. At the time of dismissal, she was tolerating a general dialysis diet and ambulating independently. Aspirin was continued throughout the perioperative course and should be continued lifelong. Warfarintherapy was resumed on 05/31/2019; warfarin therapy should be continued for at least 3 months or until outpatient follow-up with the thrombophilia team. Goal INR 2.5-3.5. See post discharge recommendations for details. Ms. Wray was continued on previous statin therapy. Continue to follow-up with primary care for ongoing monitoring. Warfarin (Coumadin) Therapy: You are being discharged on warfarin [Coumadin], a medication that will help you keep your blood thin and prevent clots. It is important to keep your Coumadin at a target level so your blood is not toothink or too thick. Anticipated duration of Coumadin therapy: Until follow-up. Coumadin therapy (Date - INR target/dose): 06/02/2019: 1.4 / 5.0 mg 06/03/2019: 1.5 / 5.0 mg 06/04/2019: 1.7 / 6.0 mg 06/05/2019: 1.8 / 7.5 mg 06/06/2019: 2.5 / 5.0 mg COUMADIN WARNIN. Coumadin is an anticoagulant, a medication which decreases your body's ability to clot your bloodand therefore, may cause bleeding. Signs or symptoms of bleeding may include, but are not limited to, the following: black-colored bowel movements, rectal bleeding, new bleeding while brushing your teeth, nose bleeds, or increased bruising. If you develop any of these signs or symptoms, you need to seek medical attention. 2. Follow a consistent vitamin K diet. 3. Your target INR is 2.5-3.5. 4. The reason you need to take Coumadin: Right AV graft patency. 5. Only take aspirin or NSAID medications if your doctor prescribes them. 6. Coumadin requires follow-up of your INR. You will need to have your INR checked within 2-4 days of discharge with your primary care provider. documented in this encounter Plan of Treatment Upcoming Encounters Date Type Specialty Care Team Description 06/01/2022 Telemedicine Pharmacy An Nicholas APRN C.N.PDavi, D.N.P., M.S.N. [address] [place] [address] [phone] (Nicolas wen) 07/31/2022 Lab Laboratory Medicine Tony Rubalcava M. B., ChBurke, M.D. [address] [place] [address] [phone] (Nicolas wen) 07/31/2022 Lab Laboratory Medicine Tony Rubalcava M. B., ChDaviBDavi, M.D. [address] [place] [address] [phone] (Nicolas wen) 07/31/2022 Office Visit Transplant Tony Rubalcava M.B., ChDaviBDavi, M.D. [address] [place] [address] [phone] (Nicolas wen) 07/31/2022 Appointment Radiology Tony Rubalcava M.B., ChDaviBDavi, M.D. [address] [place] [address] [phone] (Nicolas wen) 08/01/2022 Office Visit Transplant Tony Rubalcava M.B., Mukund Otoole [address] [place], [place] [phone] (Wo behzad) 08/01/2022 Clinical Support Transplant RufinoeliTony M.B., Mukund Otoole [address] [place], [place] [phone] (Wo behzad) documented as of this encounter Procedures Procedure Name Priority Date/Time Associated Comments Diagnosis HEMODIALYSIS Routine 06/06/2019 8:16 AM CDT PROTHROMBIN TIME (PT), P Routine 06/06/2019 5:06 Results for AM CDT this procedure are in the results section. HEPARIN LEVEL ANTI-XA Routine 06/06/2019 5:06 Res ults for ASSAY, P AM CDT this procedure are in the results section. CBC WITHOUT Routine 06/06/2019 5:06 Results for DIFFERENTIAL, B AM CDT this procedu re are in the results section. ADULT OXYGEN THERAPY Routine 06/05/2019 8:00 AM CDT CBC WITHOUT Routine 06/05/2019 3:51 Results for DIFFERENTIAL, B AM CDT this procedu re are in the results section. PHOSPHORUS (INORGANIC), Routine 06/05/2019 3:51 R esults for S AM CDT this procedure are in the results section. MAGNESIUM, S Routine 06/05/2019 3:51 Results for AM CDT this procedure are in the results section. BASIC METABOLIC PANEL, Routine 06/05/2019 3:51 Re sults for S/P AM CDT this procedure are in the results section. PROTHROMBIN TIME (PT), P Routine 06/05/2019 3:50 Results for AM CDT this procedure are in the results section. HEPARIN LEVEL ANTI-XA Routine 06/05/2019 3:50 Res ults for ASSAY, P AM CDT this procedure are in the results section. CALCIUM, IONIZED, S/B Routine 06/05/2019 3:50 Res ults for AM CDT this procedure are in the results section. ADULT OXYGEN THERAPY Routine 06/04/2019 8:00 PM CDT ADULT OXYGEN THERAPY Routine 06/04/2019 8:00 AM CDT PROTHROMBIN TIME (PT), P Routine 06/04/2019 4:22 Results for AM CDT this procedure are in the results section. HEPARIN LEVEL ANTI-XA Routine 06/04/2019 4:22 Res ults for ASSAY, P AM CDT this procedure are in the results section. CBC WITHOUT Routine 06/04/2019 4:22 Results for DIFFERENTIAL, B AM CDT this procedu re are in the results section. HEMODIALYSIS Routine 06/03/2019 2:26 PM CDT US HEMODIALYSIS RAD - Routine 06/03/2019 Results for FISTULA-GRAFT RIGHT (most inpatients 10:45 AM CDT this procedure and all are in the outpatients) results section. POTASSIUM, S/P STAT 06/03/2019 9:07 Results fo r AM CDT this procedure are in the results section. PHOSPHORUS (INORGANIC), STAT 06/03/2019 9:07 R esults for S AM CDT this procedure are in the results section. ADULT OXYGEN THERAPY Routine 06/03/2019 8:01 AM CDT PROTHROMBIN TIME (PT), P Timed 06/03/2019 4:26 Results for AM CDT this procedure are in the results section. HEPARIN LEVEL ANTI-XA Timed 06/03/2019 4:26 Res ults for ASSAY, P AM CDT this procedure are in the results section. CBC WITHOUT Timed 06/03/2019 4:26 Results for DIFFERENTIAL, B AM CDT this procedu re are in the results section. BASIC METABOLIC PANEL, Timed 06/03/2019 4:26 Re sults for S/P AM CDT this procedure are in the results section. ADULT OXYGEN THERAPY Routine 06/02/2019 8:00 PM CDT HEPARIN LEVEL ANTI-XA Routine 06/02/2019 1:30 Res ults for ASSAY, P PM CDT this procedure are in the results section. HEMODIALYSIS Routine 06/02/2019 12:49 PM CDT ADULT OXYGEN THERAPY Routine 06/02/2019 8:01 AM CDT PROTHROMBIN TIME (PT), P Routine 06/02/2019 4:53 Results for AM CDT this procedure are in the results section. HEPARIN LEVEL ANTI-XA Routine 06/02/2019 4:53 Res ults for ASSAY, P AM CDT this procedure are in the results section. CBC WITHOUT Routine 06/02/2019 4:53 Results for DIFFERENTIAL, B AM CDT this procedu re are in the results section. MICROSCOPIC MANUAL Routine 06/01/2019 8:54 Result s for PM CDT this procedure are in the results section. BACTERIAL CULTURE, Routine 06/01/2019 8:54 Result s for AEROBIC + SUSC, URINE PM CDT this p rocedure are in the results section. URINALYSIS WITH Routine 06/01/2019 8:54 Results f or MICROSCOPIC PM CDT this procedure are in the results section. ADULT OXYGEN THERAPY Routine 06/01/2019 8:00 PM CDT ADULT OXYGEN THERAPY Routine 06/01/2019 8:00 AM CDT PROTHROMBIN TIME (PT), P Routine 06/01/2019 3:33 Results for AM CDT this procedure are in the results section. HEPARIN LEVEL ANTI-XA Timed 06/01/2019 3:33 Res ults for ASSAY, P AM CDT this procedure are in the results section. CBC WITHOUT Routine 06/01/2019 3:33 Results for DIFFERENTIAL, B AM CDT this procedu re are in the results section. PHOSPHORUS (INORGANIC), Routine 06/01/2019 3:33 R esults for S AM CDT this procedure are in the results section. MAGNESIUM, S Routine 06/01/2019 3:33 Results for AM CDT this procedure are in the results section. BASIC METABOLIC PANEL, Routine 06/01/2019 3:33 Re sults for S/P AM CDT this procedure are in the results section. HEPARIN LEVEL ANTI-XA Timed 05/31/2019 9:14 Res ults for ASSAY, P PM CDT this procedure are in the results section. ADULT OXYGEN THERAPY Routine 05/31/2019 8:00 PM CDT HEPARIN LEVEL ANTI-XA Routine 05/31/2019 1:05 Res ults for ASSAY, P PM CDT this procedure are in the results section. ADULT OXYGEN THERAPY Routine 05/31/2019 12:47 PM CDT ADULT OXYGEN THERAPY Routine 05/31/2019 12:47 PM CDT IR FISTULAGRAM RAD - Routine 05/31/2019 Results for (most inpatients 11:46 AM CDT this proced ure and all are in the outpatients) results section. THROMBOEMBOLECTOMY 05/31/2019 8:29 AV Graft AM CDT thrombosis in the RUE ACTIVATED PARTIAL STAT 05/31/2019 5:45 Results for THROMBOPLASTIN TIME AM CDT this pro cedure (APTT), P are in the results section. PROTHROMBIN TIME (PT), P STAT 05/31/2019 5:45 Results for AM CDT this procedure are in the results section. HEPARIN LEVEL ANTI-XA Timed 05/31/2019 5:45 Res ults for ASSAY, P AM CDT this procedure are in the results section. CBC WITHOUT STAT 05/31/2019 5:45 Results for DIFFERENTIAL, B AM CDT this procedu re are in the results section. PHOSPHORUS (INORGANIC), STAT 05/31/2019 5:45 R esults for S AM CDT this procedure are in the results section. MAGNESIUM, S STAT 05/31/2019 5:45 Results for AM CDT this procedure are in the results section. BASIC METABOLIC PANEL, STAT 05/31/2019 5:45 Re sults for S/P AM CDT this procedure are in the results section. HEPARIN LEVEL ANTI-XA Timed 05/30/2019 Result s for ASSAY, P 11:28 PM CDT this procedure are in the results section. ACTIVATED PARTIAL STAT 05/30/2019 3:11 Results for THROMBOPLASTIN TIME PM CDT this pro cedure (APTT), P are in the results section. PROTHROMBIN TIME (PT), P STAT 05/30/2019 3:11 Results for PM CDT this procedure are in the results section. CBC WITH DIFFERENTIAL, B STAT 05/30/2019 3:11 Results for PM CDT this procedure are in the results section. BASIC METABOLIC PANEL, STAT 05/30/2019 3:11 Re sults for S/P PM CDT this procedure are in the results section. US HEMODIALYSIS RAD - Semiurgent 05/30/2019 2:25 Resul ts for FISTULA-GRAFT RIGHT (Fast; most ED PM CDT this p rocedure patients; some are in the inpatients) results section. documented in this encounter Results (ABNORMAL) PT (Prothrombin Time) with INR (06/06/2019 5:06 AM CDT) [facility] gist Method Time Signature Prothrombin 27.5 (H) 9.4 - 12.5 06/06/2019 DTL Time, P sec 6:01 AM CDT INR 2.5 0.9 - 1.1 06/06/2019 DTL 6:01 AM CDT Comment: ----ADDITIONAL INFORMATION---- Standard intensity warfarin therapeutic range: 2.0 to 3.0 ?? High intensity warfarin therapeutic rang e: 2.5 to 3.5 Specimen Anatomical Collection Method Collection Time Receive d Time (Source) Location / / Volume Laterality Blood (Blood, 06/06/2019 5:06 AM 06/06/20 5:30 Venous) CDT AM CDT Guillermo Mcmanus LAB BLOOD ADD-ON Performing Organization Address City/[facility] Phon e Number [facility] - [address] (ABNORMAL) CBC without Differential (06/06/2019 5:06 AM CDT) Patholo gist Method Time Signature Hemoglobin 8.6 (L) 11.6 - 06/06/2019 DTL 15.0 g/dL 5:39 AM CDT Hematocrit 27.9 (L) 35.5 - 06/06/2019 DTL 44.9 % 5:39 AM CDT Erythrocytes 2.91 (L) 3.92 - 06/06/2019 DTL 5.13 5:39 AM CDT x10(12)/L MCV 95.9 78.2 - 06/06/2019 DTL 97.9 fL 5:39 AM CDT RBC Distrib Width 15.8 12.2 - 06/06/2019 DTL 16.1 % 5:39 AM CDT Platelet Count 140 (L) 157 - 371 06/06/2019 DTL x10(9)/L 5:39 AM CDT Leukocytes 7.0 3.4 - 9.6 06/06/2019 DTL x10(9)/L 5:39 AM CDT Specimen Anatomical Collection Method Collection Time Receive d Time (Source) Location / / Volume Laterality Blood (Blood, 06/06/2019 5:06 AM 06/06/20 5:30 Venous) CDT AM CDT Alison Romeo APRN, C.N.P., M.S.N. LAB BLOOD ADD-ON Performing Organization Address City/[facility] Code Phon e Number [facility] - [address] Heparin Anti-Xa Assay (06/06/2019 5:06 AM CDT) P athologist Signature Heparin 0.49 IU/mL 06/06/2019 DTL Anti-Xa, P 6:01 AM CDT Comment: UFH therapeutic range: ?? 0.30-0.70 IU/mL [...] Location / / Volume Laterality Blood (Blood, 06/06/2019 5:06 AM 06/06/20 5:30 Venous) CDT AM CDT Alison Romeo APRN C.N.P., M.S.N. LAB BLOOD NON ADD -ON Performing Organization Address City/State/[facility] Code Phon e Number [facility] - [address] [place], [place] [address] [facility] [place] [address] Laboratories-[facility] [address] [facility] (ABNORMAL) CBC without Differential (06/05/2019 3:51 AM CDT) Patholo gist Method Time Signature Hemoglobin 8.9 (L) 11.6 - 06/05/2019 DTL 15.0 g/dL 4:27 AM CDT Hematocrit 28.5 (L) 35.5 - 06/05/2019 DTL 44.9 % 4:27 AM CDT Erythrocytes 3.03 (L) 3.92 - 06/05/2019 DTL 5.13 4:27 AM CDT x10(12)/L MCV 94.1 78.2 - 06/05/2019 DTL 97.9 fL 4:27 AM CDT RBC Distrib Width 15.8 12.2 - 06/05/2019 DTL 16.1 % 4:27 AM CDT Platelet Count 141 (L) 157 - 371 06/05/2019 DTL x10(9)/L 4:27 AM CDT Leukocytes 6.9 3.4 - 9.6 06/05/2019 DTL x10(9)/L 4:27 AM CDT Specimen Anatomical Collection Method Collection Time Receive d Time (Source) Location / / Volume Laterality Blood (Blood, 06/05/2019 3:51 AM 06/05/20 19 4:21 Venous) CDT AM CDT Alison Romeo APRN, C.N.P., M.S.N. LAB BLOOD ADD-ON Performing Organization Address City/State/ZIP Code Phon e Number [facility] - [address] [place], [place] [address] [facility] [place] [address] Laboratories-[facility] [address] (ABNORMAL) Basic Metabolic Panel (06/05/2019 3:51 AM CDT) Analysis Performed At Patho logist Time Signature Potassium, S 4.5 3.6 - 5.2 06/05/2019 DTL mmol/L 4:54 AM CDT Sodium, S 136 135 - 145 06/05/2019 DTL mmol/L 4:54 AM CDT Chloride, S 95 (L) 98 - 107 06/05/2019 DTL mmol/L 4:54 AM CDT Bicarbonate, S 28 22 - 29 06/05/2019 DTL mmol/L 4:54 AM CDT Anion Gap 13 7 - 15 06/05/2019 DTL 4:54 AM CDT BUN (Blood Urea 22 (H) 6 - 21 06/05/2019 DTL Nitrogen), S mg/dL 4:54 AM CDT Creatinine 4.26 (H) 0.59 - 06/05/2019 DTL 1.04 mg/dL 4:54 AM CDT eGFR-Non <15 (L) >=60 06/05/2019 DTL Black/ mL/min/BSA 4:54 AM CDT [place] Comment: ----ADDITIONAL INFORMATION---- Estimated GFR calculated using the 2009 CKD_EPI creatinine equation. eGFR-Black/ <15 (L) >=60 mL/min/BSA 2018 4:54 AM CDT DTL Comment: ----ADDITIONAL INFORMATION---- Estimated GFR calculated using the 2009 CKD_EPI creatinine equation. Calcium, Total, S 9.2 8.6 - 10.0 mg/dL 06/05/2019 4:54 AM CDT DTL Glucose, S 83 70 - 140 mg/dL 06/05/2019 4:54 AM CDT D TL Specimen Anatomical Collection Method Collection Time Receive d Time (Source) Location / / Volume Laterality Blood (Blood, 06/05/2019 3:51 AM 06/05/20 19 4:19 Venous) CDT AM CDT Alison Romeo APRN, C.N.P., M.S.N. LAB BLOOD ADD-ON Performing Organization Address City/[facility] Code Phon e Number [facility] - [address] [place], [place] [address] [place] [id number] [place] [address] Phosphorus Inorganic (06/05/2019 3:51 AM CDT) P athologist Signature Phosphorus 3.7 2.5 - 4.5 06/05/2019 DTL (Inorganic), S mg/dL 4:54 AM CDT Specimen Anatomical Collection Method Collection Time Receive d Time (Source) Location / / Volume Laterality Blood (Blood, 06/05/2019 3:51 AM 06/05/20 19 4:19 Venous) CDT AM CDT Alison Romeo APRN, C.N.P., M.S.N. LAB BLOOD ADD-ON Performing Organization Address City/[facility] Phon e Number [facility] [address] [place], [place] [address] [place] [address] Magnesium (06/05/2019 3:51 AM CDT) P athologist Signature Magnesium, S 2.0 1.7 - 2.3 06/05/2019 DTL mg/dL 4:54 AM CDT Specimen Anatomical Collection Method Collection Time Receive d Time (Source) Location / / Volume Laterality Blood (Blood, 06/05/2019 3:51 AM 06/05/20 19 4:19 Venous) CDT AM CDT Milli Mak APRNNJohan., M.S.N. LAB BLOOD ADD-ON Performing Organization Address City/[facility]/ZIP Code Phon e Number [facility] - [address] [place], [place] [address] [facility] [place] [address] Laboratories-[facility] 200 [facility] (ABNORMAL) PT (Prothrombin Time) with INR (06/05/2019 3:50 AM CDT) Patholo gist Method Time Signature Prothrombin 20.5 (H) 9.4 - 12.5 06/05/2019 DTL Time, P sec 4:39 AM CDT INR 1.8 0.9 - 1.1 06/05/2019 DTL 4:39 AM CDT Comment: ----ADDITIONAL INFORMATION---- Standard intensity warfarin therapeutic range: 2.0 to 3.0 ?? High intensity warfarin therapeutic rang e: 2.5 to 3.5 Specimen Anatomical Collection Method Collection Time Receive d Time (Source) Location / / Volume Laterality Blood (Blood, 06/05/2019 3:50 AM 06/05/20 4:20 Venous) CDT AM CDT Jakob Rivera M.D. LAB BLOOD ADD-ON Performing Organization Address City/State/ZIP Code Phon e Number [facility] - [address] [place] [address] [facility] [place] [place] [address] Laboratories-[address] (ABNORMAL) Calcium, Ionized (06/05/2019 3:50 AM CDT) P athologist Signature Calcium, 5.13 4.57 - 5.43 06/05/2019 DT Ionized, S mg/dL 4:58 AM CDT Comment: ----ADDITIONAL INFORMATION---- This test has been modified from the man erwinr's instructions. Its performance characteri stics were determined by [facility] in a manner co nsistent with CLIA requirements. This test has not bee n cleared or approved by the U.S. Food and Drug Admin istration. pH for Ionized Calcium 7.52 (H) 7.35 - 7.48 06/05/2019 4:58 AM CDT DTL Specimen Anatomical Collection Method Collection Time Receive d Time (Source) Location / / Volume Laterality Blood (Blood, 06/05/2019 3:50 AM 06/05/20 19 4:20 Venous) CDT AM CDT Alison Romeo APRN, C.N.P., M.S.N. LAB BLOOD NON ADD -ON Performing Organization Address [facility] Phon e Number [facility] - [address] Heparin Anti-Xa Assay (06/05/2019 3:50 AM CDT) P athologist Signature Heparin 0.40 IU/mL 06/05/2019 DT Anti-Xa, P 4:39 AM CDT Comment: UFH therapeutic range: ?? 0.30-0.70 IU/mL [...] Location / / Volume Laterality Blood (Blood, 06/05/2019 3:50 AM 06/05/20 19 4:20 Venous) CDT AM CDT Farzana Amaya APRN, R.N. LAB BLOOD NON ADD-ON Performing Organization Address [facility] Phon e Number [facility] - [address] [place], [place] [address] [place] [address] (ABNORMAL) CBC without Differential (06/04/2019 4:22 AM CDT) Patholo gist Method Time Signature Hemoglobin 8.8 (L) 11.6 - 06/04/2019 DHPM 15.0 g/dL 4:48 AM CDT Hematocrit 28.0 (L) 35.5 - 06/04/2019 DHPM 44.9 % 4:48 AM CDT Erythrocytes 2.95 (L) 3.92 - 06/04/2019 [facility] 5.13 4:48 AM CDT x10(12)/L MCV 94.9 78.2 - 06/04/2019 [facility] 97.9 fL 4:48 AM CDT RBC Distrib Width 15.5 12.2 - 06/04/2019 [facility] 16.1 % 4:48 AM CDT Platelet Count 135 (L) 157 - 371 06/04/2019 [facility] x10(9)/L 4:48 AM CDT Leukocytes 6.8 3.4 - 9.6 06/04/2019 [facility] x10(9)/L 4:48 AM CDT Specimen Anatomical Collection Method Collection Time Receive d Time (Source) Location / / Volume Laterality Blood (Blood, 06/04/2019 4:22 AM 06/04/20 4:34 Venous) CDT AM CDT Milli Mak APRNNJohan., M.S.N. LAB BLOOD ADD-ON Performing Organization Address [facility] Phon e Number [facility] - [address] (ABNORMAL) PT (Prothrombin Time) with INR (06/04/2019 4:22 AM CDT) [facility] Method Time Signature Prothrombin 19.4 (H) 9.4 - 12.5 06/04/2019 DTL Time, P sec 4:49 AM CDT INR 1.7 0.9 - 1.1 06/04/2019 DT 4:49 AM CDT Comment: ----ADDITIONAL INFORMATION---- Standard intensity warfarin therapeutic range: 2.0 to 3.0 ?? High intensity warfarin therapeutic rang e: 2.5 to 3.5 Specimen Anatomical Collection Method Collection Time Receive d Time (Source) Location / / Volume Laterality Blood (Blood, 06/04/2019 4:22 AM 06/04/20 19 4:34 Venous) CDT AM CDT Jakob Rivera M.D. LAB BLOOD ADD-ON Performing Organization Address City/[facility] Phon e Number [facility] - [address] Heparin Anti-Xa Assay (06/04/2019 4:22 AM CDT) P athologist Signature Heparin 0.43 IU/mL 06/04/2019 DTL Anti-Xa, P 4:49 AM CDT Comment: UFH therapeutic range: ?? 0.30-0.70 IU/mL [...] Location / / Volume Laterality Blood (Blood, 06/04/2019 4:22 AM 06/04/20 19 4:34 Venous) CDT AM CDT Farzana Amaya APRN, R.N. LAB BLOOD NON ADD-ON Performing Organization Address City/State/ZIP Code Phon e Number [facility] - [address] [place], [place] [address] [facility] [place] [place] [address] Laboratories-[facility] 200 [facility] US Hemodialysis Fistula-Graft Right (06/03/2019 10:45 AM CDT) Anatomical Region Laterality Modality Body, Ultrasound RST LOS, Ultrasound ARZ LOS, Ultrasound FLA Right Ultrasound LOS, Procedural Specimen (Source) Anatomical Collection Method Collection Time Re ceived Time Location / / Volume Laterality 06/03/2019 11:05 AM CDT Impressions 06/03/2019 11:35 AM CDT 1. ??Right brachial artery to axillary v ein fistula graft is patent without significant stenosis and with normal keny w volume. ?? 2. ??Focal stenosis of the right axillar y vein with flow velocities up to 556 cm/s. Narrative 06/03/2019 11:35 AM CDT EXAM: US HEMODIALYSIS FISTULA-GRAFT RIGHT Exam performed with color and spectral D oppler analysis. COMPARISON: Ultrasound hemodialysis fist casi graft 05/30/2019, IR fistulogram 05/31/2019. FINDINGS: Location: Right brachial artery to axill alfie vein fistula. Subcutaneous edema and subcutaneous air near the lower incision site in keeping with thromboembolectomy performed 05/31/2019. Arterial: Antegrade flow distal to the f istula. Anastomosis: Patent without evidence of significant stenosis. Outflow vein: Patent without evidence of stenosis. Central veins: High velocity, pulsatile flow through the right axillary vein up to 556 cm/s with surrounding soft tissue vibration on color doppler examination consistent with a stenosis. Lower veloci ty venous flow distal to the stenosis in the right subclavian and innominate vein s. Mean average flow volume: 970 mL/min. <500 ml/min = low flow 500-800 ml/min = borderline >800 ml/min = normal ?? Procedure Note Ligia Rubin M.D. - 06/03/2019Fo rmatting of this note might be different from the original. EXAM: US HEMODIALYSIS FISTULA-GRAFT RIGH T Exam performed with color and spectral D oppler analysis. COMPARISON: Ultrasound hemodialysis fist casi graft 05/30/2019, IR fistulogram 05/31/2019. FINDINGS: Location: Right brachial artery to axill alfie vein fistula. Subcutaneous edema and subcutaneous air near the lower incision site in keeping with thromboembolectomy performed 05/31/2019. Arterial: Antegrade flow distal to the f istula. Anastomosis: Patent without evidence of significant stenosis. Outflow vein: Patent without evidence of stenosis. Central veins: High velocity, pulsatile flow through the right axillary vein up to 556 cm/s with surrounding soft tissue vibration on color doppler examination consistent with a stenosis. Lower veloci ty venous flow distal to the stenosis in the right subclavian and innominate vein s. Mean average flow volume: 970 mL/min. <500 ml/min = low flow 500-800 ml/min = borderline >800 ml/min = normal IMPRESSION: 1. Right brachial artery to axillary vei n fistula graft is patent without significant stenosis and with normal keny w volume. 2. 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 Farzana Amaya APRN, R.N. IMG US PROCEDURES Potassium (06/03/2019 9:07 AM CDT) P athologist Signature Potassium, S 3.9 3.6 - 5.2 06/03/2019 DTL mmol/L 10:29 AM CDT Specimen Anatomical Collection Method Collection Time Receive d Time (Source) Location / / Volume Laterality Blood 06/03/2019 9:07 AM 9 9:20 CDT AM CDT Farzana Amaya APRN, R.N. LAB BLOOD ADD-ON Performing Organization Address City/[facility] Phon e Number [facility] - [address] [place] [phone] [address] Phosphorus Inorganic (06/03/2019 9:07 AM CDT) P athologist Signature Phosphorus 2.8 2.5 - 4.5 06/03/2019 DTL (Inorganic), S mg/dL 10:29 AM CDT Specimen Anatomical Collection Method Collection Time Receive d Time (Source) Location / / Volume Laterality Blood 06/03/2019 9:07 AM 9 9:20 CDT AM CDT Farzana Amaya APRN, R.N. LAB BLOOD ADD-ON Performing Organization Address City/[facility] Phon e Number [facility] - [address] (ABNORMAL) CBC without Differential (06/03/2019 4:26 AM CDT) Patholo gist Method Time Signature Hemoglobin 8.4 (L) 11.6 - 06/03/2019 DTL 15.0 g/dL 5:24 AM CDT Hematocrit 27.0 (L) 35.5 - 06/03/2019 DTL 44.9 % 5:24 AM CDT Erythrocytes 2.85 (L) 3.92 - 06/03/2019 DTL 5.13 5:24 AM CDT x10(12)/L MCV 94.7 78.2 - 06/03/2019 DTL 97.9 fL 5:24 AM CDT RBC Distrib Width 16.2 (H) 12.2 - 06/03/2019 DTL 16.1 % 5:24 AM CDT Platelet Count 162 157 - 371 06/03/2019 DTL x10(9)/L 5:24 AM CDT Leukocytes 6.2 3.4 - 9.6 06/03/2019 DTL x10(9)/L 5:24 AM CDT Specimen Anatomical Collection Method Collection Time Receive d Time (Source) Location / / Volume Laterality Blood (Blood, 06/03/2019 4:26 AM 06/03/20 19 5:14 Venous) CDT AM CDT Alison Romeo APRN, C.N.P., M.S.N. LAB BLOOD ADD-ON Performing Organization Address City/[facility] Phon e Number [facility] - [address] [place], [place] [address] [facility] [place] [place] [address] Laboratories-[facility] 200 [facility] (ABNORMAL) PT (Prothrombin Time) with INR (06/03/2019 4:26 AM CDT) Patholo gist Method Time Signature Prothrombin 16.8 (H) 9.4 - 12.5 06/03/2019 DTL Time, P sec 5:31 AM CDT INR 1.5 0.9 - 1.1 06/03/2019 DTL 5:31 AM CDT Comment: ----ADDITIONAL INFORMATION---- Standard intensity warfarin therapeutic range: 2.0 to 3.0 ?? High intensity warfarin therapeutic rang e: 2.5 to 3.5 Specimen Anatomical Collection Method Collection Time Receive d Time (Source) Location / / Volume Laterality Blood (Blood, 06/03/2019 4:26 AM 06/03/20 19 5:15 Venous) CDT AM CDT Jakob Rivera M.D. LAB BLOOD ADD-ON Performing Organization Address City/State/[facility] Phon e Number [facility] - [address] [place], [place] [address] [facility] [place] [address] Laboratories-[facility] [address] [facility] Heparin Anti-Xa Assay (06/03/2019 4:26 AM CDT) P athologist Signature Heparin 0.37 IU/mL 06/03/2019 DT Anti-Xa, P 5:31 AM CDT Comment: UFH therapeutic range: ?? 0.30-0.70 IU/mL [...] Location / / Volume Laterality Blood (Blood, 06/03/2019 4:26 AM 06/03/20 19 5:15 Venous) CDT AM CDT Farzana Amaya APRN, R.N. LAB BLOOD NON ADD-ON Performing Organization Address City/State/ZIP Code Phon e Number [facility] - [address] [place], [place] [address] [facility] [place] [address] Laboratories-[facility] [address] (ABNORMAL) Basic Metabolic Panel (06/03/2019 4:26 AM CDT) athologist Signature Potassium, S CANCELED mmol/L 06/03/2019 DTL 8:34 AM CDT Comment: Test cancelled. ??Hemolyzed. Redraw has been ordered and is in progre ss. Result canceled by the ancillary. Sodium, S 132 (L) 135 - 145 mmol/L 06/03/2019 5:58 AM CDT DTL Chloride, S 96 (L) 98 - 107 mmol/L 06/03/2019 5:58 AM CDT DTL Bicarbonate, S 25 22 - 29 mmol/L 06/03/2019 5:58 AM C DT DTL Anion Gap 11 7 - 15 06/03/2019 5:58 AM CDT DTL BUN (Blood Urea Nitrogen), 20 6 - 21 mg/dL 06/03/2019 5:58 AM CDT DTL S Creatinine 4.33 (H) 0.59 - 1.04 mg/dL 06/03/2019 5:58 AM CD T DTL eGFR-Non Black/ <15 (L) >=60 mL/min/BSA 06/03/2019 5:58 AM CDT DTL [place] Comment: ----ADDITIONAL INFORMATION---- Estimated GFR calculated using the 2009 CKD_EPI creatinine equation. eGFR-Black/ <15 (L) >=60 mL/min/BSA 2018 5:58 AM CDT DTL Comment: ----ADDITIONAL INFORMATION---- Estimated GFR calculated using the 2009 CKD_EPI creatinine equation. Calcium, Total, S 8.8 8.6 - 10.0 mg/dL 06/03/2019 5:58 AM CDT DTL Glucose, S 76 70 - 140 mg/dL 06/03/2019 5:58 AM CDT D TL Specimen Anatomical Collection Method Collection Time Receive d Time (Source) Location / / Volume Laterality Blood (Blood, 06/03/2019 4:26 AM 06/03/20 5:14 Venous) CDT AM CDT Farzana Amaya APRN, R.N. LAB BLOOD ADD-ON Performing Organization Address City/State/ZIP Code Phon e Number [facility] - [address] [place] [address] [place] [address] Laboratories-[facility] 200 [facility] Heparin Anti-Xa Assay (06/02/2019 1:30 PM CDT) P athologist Signature Heparin 0.50 IU/mL 06/02/2019 DTL Anti-Xa, P 2:14 PM CDT Comment: UFH therapeutic range: ?? 0.30-0.70 IU/mL [...] Location / / Volume Laterality Blood (Blood, 06/02/2019 1:30 PM 06/02/20 19 1:57 Venous) CDT PM CDT Jakob Rivera M.D. LAB BLOOD NON ADD-ON Performing Organization Address [facility] Phon e Number [facility] - [address] [place], [place] [address] [facility] [place], [place] [phone] [place] [address] (ABNORMAL) CBC without Differential (06/02/2019 4:53 AM CDT) [facility] [employer] Method Time Signature Hemoglobin 8.3 (L) 11.6 - 06/02/2019 DTL 15.0 g/dL 5:10 AM CDT Hematocrit 27.0 (L) 35.5 - 06/02/2019 DTL 44.9 % 5:10 AM CDT Erythrocytes 2.81 (L) 3.92 - 06/02/2019 DTL 5.13 5:10 AM CDT x10(12)/L MCV 96.1 78.2 - 06/02/2019 DTL 97.9 fL 5:10 AM CDT RBC Distrib Width 15.5 12.2 - 06/02/2019 DTL 16.1 % 5:10 AM CDT Platelet Count 142 (L) 157 - 371 06/02/2019 DTL x10(9)/L 5:10 AM CDT Leukocytes 7.5 3.4 - 9.6 06/02/2019 DTL x10(9)/L 5:10 AM CDT Specimen Anatomical Collection Method Collection Time Receive d Time (Source) Location / / Volume Laterality Blood (Blood, 06/02/2019 4:53 AM 06/02/20 19 5:06 Venous) CDT AM CDT Milli Mak APRNNJohan., M.S.N. LAB BLOOD ADD-ON Performing Organization Address City/[facility] Phon e Number [facility] - [address] [place], [place] [address] [facility] [place] [address] [facility] 200 [facility] (ABNORMAL) PT (Prothrombin Time) with INR (06/02/2019 4:53 AM CDT) [facility] [employer] Method Time Signature Prothrombin 16.0 (H) 9.4 - 12.5 06/02/2019 DTL Time, P sec 5:17 AM CDT INR 1.4 0.9 - 1.1 06/02/2019 DTL 5:17 AM CDT Comment: ----ADDITIONAL INFORMATION---- Standard intensity warfarin therapeutic range: 2.0 to 3.0 ?? High intensity warfarin therapeutic rang e: 2.5 to 3.5 Specimen Anatomical Collection Method Collection Time Receive d Time (Source) Location / / Volume Laterality Blood (Blood, 06/02/2019 4:53 AM 06/02/20 19 5:06 Venous) CDT AM CDT Jakob Rivera M.D. LAB BLOOD ADD-ON Performing Organization Address City/[facility] Phon e Number [facility] - [address] [place], [place] [address] [place] [address] [facility] [address] [facility] Heparin Anti-Xa Assay (06/02/2019 4:53 AM CDT) P athologist Signature Heparin 0.53 IU/mL 06/02/2019 [facility] Anti-Xa, P 5:17 AM CDT Comment: UFH therapeutic range: ?? 0.30-0.70 IU/mL [...] Location / / Volume Laterality Blood (Blood, 06/02/2019 4:53 AM 06/02/20 19 5:06 Venous) CDT AM CDT Alison Romeo APRN C.N.P., M.S.N. LAB BLOOD NON ADD -ON Performing Organization Address City/[facility] Phon e Number [facility] - [address] [place], [place] [address] [place] [address] [facility] [address] Microscopic Manual (06/01/2019 8:54 PM CDT) P athologist Signature Microscopy Normal 06/02/2019 2:03 JR AM CDT RBC <3 <3 /hpf 06/02/2019 2:03 JR AM CDT Specimen Anatomical Collection Method Collection Time Receive d Time (Source) Location / / Volume Laterality Urine 06/01/2019 8:54 PM 9 9:49 CDT PM CDT Jefferson Farfan M.D. LAB URINE ORDERABLES Performing Organization Address [facility] Phon e Number [facility] - [address] [place], [place] [address] [facility] [place] [address] Laboratories-[address] Bacterial Culture, Aerobic + Susc, Urine (06/01/2019 8:54 PM CDT) Component Value Ref Test Analysis Performed At [facility] gist Range Method Time Signature Urine Mixed Bibiana, 06/03/2019 DTL Culture susceptibilities 7:08 AM CDT not performed per laboratory criteria. Specimen Anatomical Collection Method Collection Time Receive d Time (Source) Location / / Volume Laterality Urine (Urine, 06/01/2019 8:54 PM 06/01/20 19 Midstream) CDT 10:32 PM CDT Comment: Specimen Source Site: Urine Jefferson Farfan M.D. LAB MICROBIOLOGY - GENERAL O RDERABLES Performing Organization Address City/[facility] Phon e Number [facility] - [address] [place] [address] 05 [facility] [place] [address] Laboratories-[address] (ABNORMAL) Urinalysis with Microscopic: Urine, Midstream (06/01/2019 8:54 PM CDT) P athologist Signature Source Void 06/01/2019 JR 10:41 PM CDT Appearance Normal Normal 06/01/2019 JR 10:41 PM CDT Osmolality, U 265 150 - 1150 06/01/2019 JR mOsm/kg 10:46 PM CDT pH, U 6.9 4.5 - 8.0 06/01/2019 JR 10:46 PM CDT Comment: ----ADDITIONAL INFORMATION---- This test was developed and its performa nce characteristics determined by [facility] in a manner co nsistent with CLIA requirements. This test has not bee n cleared or approved by the U.S. Food and Drug Admin istration. Glucose 9 0 - 15 mg/dL 06/01/2019 10:41 PM CDT RABMO A Protein, U 59 (H) <26 mg/dL 06/01/2019 10:41 PM CDT JR Comment: ----ADDITIONAL INFORMATION---- On 02/13/2017 the total protein assay me thod changed resulting in approximately a 15% increase in prote in values. Protein/Osmolality 2.23 (H) <0.42 Ratio 06/01/2019 10:46 PM CDT JR Comment: ----ADDITIONAL INFORMATION---- On 02/13/2017 the total protein assay me thod changed resulting in approximately a 15% increase in prote in values. Predicted 24 Hr Protein 1384 mg/24 h 06/01/2019 10:46 PM CDT JR Predicted Range 342-5602 mg/24 h 06/01/2019 10:46 PM CDT JR Hemoglobin, QL Negative Negative 06/02/2019 2:03 AM CDT RE NA Specimen Anatomical Collection Method Collection Time Receive d Time (Source) Location / / Volume Laterality Urine (Urine, 06/01/2019 8:54 PM 06/01/20 9:49 Midstream) CDT PM CDT Jefferson Farfan M.D. LAB URINE ORDERABLES Performing Organization Address City/State/ZIP Code Phon e Number [facility] - [address] [place], [place] [address] [place] [address] Laboratories-[facility] [address] Heparin Anti-Xa Assay (06/01/2019 3:33 AM CDT) P athologist Signature Heparin 0.45 IU/mL 06/01/2019 DTL Anti-Xa, P 4:33 AM CDT Comment: UFH therapeutic range: ?? 0.30-0.70 IU/mL [...] Location / / Volume Laterality Blood (Blood, 06/01/2019 3:33 AM 06/01/20 3:53 Venous) CDT AM CDT Alison Romeo APRN, C.N.P., M.S.N. LAB BLOOD NON ADD -ON Performing Organization Address City/[facility] Phon e Number [facility] - [address] Phosphorus Inorganic (06/01/2019 3:33 AM CDT) P athologist Signature Phosphorus 4.4 2.5 - 4.5 06/01/2019 DTL (Inorganic), S mg/dL 5:06 AM CDT Specimen Anatomical Collection Method Collection Time Receive d Time (Source) Location / / Volume Laterality Blood (Blood, 06/01/2019 3:33 AM 06/01/20 3:54 Venous) CDT AM CDT Alison Romeo APRN, C.N.P., M.S.N. LAB BLOOD ADD-ON Performing Organization Address [facility] Phon e Number [facility] - [address] [place] [address] [place] [address] Laboratories-[address] Magnesium (06/01/2019 3:33 AM CDT) P athologist Signature Magnesium, S 2.0 1.7 - 2.3 06/01/2019 DTL mg/dL 5:06 AM CDT Specimen Anatomical Collection Method Collection Time Receive d Time (Source) Location / / Volume Laterality Blood (Blood, 06/01/2019 3:33 AM 06/01/20 19 3:54 Venous) CDT AM CDT Alison Romeo APRN, C.N.P., M.S.N. LAB BLOOD ADD-ON Performing Organization Address City/State/ZIP Code Phon e Number [facility] - [address] [place], [place] [address] [facility] [place] [address] Laboratories-[facility] [address] (ABNORMAL) BMP (Basic Metabolic Panel) (06/01/2019 3:33 AM CDT) Analysis Performed At Patho logist Time Signature Potassium, S 4.4 3.6 - 5.2 06/01/2019 DTL mmol/L 5:06 AM CDT Sodium, S 134 (L) 135 - 145 06/01/2019 DTL mmol/L 5:06 AM CDT Chloride, S 95 (L) 98 - 107 06/01/2019 DTL mmol/L 5:06 AM CDT Bicarbonate, S 24 22 - 29 06/01/2019 DTL mmol/L 5:06 AM CDT Anion Gap 15 7 - 15 06/01/2019 DTL 5:06 AM CDT BUN (Blood Urea 34 (H) 6 - 21 06/01/2019 DTL Nitrogen), S mg/dL 5:06 AM CDT Creatinine 6.52 (H) 0.59 - 06/01/2019 DTL 1.04 mg/dL 5:06 AM CDT eGFR-Non <15 (L) >=60 06/01/2019 DTL Black/ mL/min/BSA 5:06 AM CDT [place] Comment: ----ADDITIONAL INFORMATION---- Estimated GFR calculated using the 2009 CKD_EPI creatinine equation. eGFR-Black/ <15 (L) >=60 mL/min/BSA 2018 5:06 AM CDT DTL Comment: ----ADDITIONAL INFORMATION---- Estimated GFR calculated using the 2009 CKD_EPI creatinine equation. Calcium, Total, S 9.6 8.6 - 10.0 mg/dL 06/01/2019 5:06 AM CDT DTL Glucose, S 132 70 - 140 mg/dL 06/01/2019 5:06 AM CDT D TL Specimen Anatomical Collection Method Collection Time Receive d Time (Source) Location / / Volume Laterality Blood (Blood, 06/01/2019 3:33 AM 06/01/20 3:54 Venous) CDT AM CDT Alison Romeo APRN, C.N.P., M.S.N. LAB BLOOD ADD-ON Performing Organization Address [facility] Phon e Number [facility] - [address] [place], [place] [address] [facility] [place] [place] [address] (ABNORMAL) CBC without Differential (06/01/2019 3:33 AM CDT) [facility] Method Time Signature Hemoglobin 7.9 (L) 11.6 - 06/01/2019 DTL 15.0 g/dL 4:01 AM CDT Hematocrit 25.9 (L) 35.5 - 06/01/2019 DTL 44.9 % 4:01 AM CDT Erythrocytes 2.74 (L) 3.92 - 06/01/2019 DTL 5.13 4:01 AM CDT x10(12)/L MCV 94.5 78.2 - 06/01/2019 DTL 97.9 fL 4:01 AM CDT RBC Distrib Width 15.2 12.2 - 06/01/2019 DTL 16.1 % 4:01 AM CDT Platelet Count 145 (L) 157 - 371 06/01/2019 DTL x10(9)/L 4:01 AM CDT Leukocytes 9.9 (H) 3.4 - 9.6 06/01/2019 DTL x10(9)/L 4:01 AM CDT Specimen Anatomical Collection Method Collection Time Receive d Time (Source) Location / / Volume Laterality Blood (Blood, 06/01/2019 3:33 AM 06/01/20 19 3:54 Venous) CDT AM CDT Milli Mak APRNNJohan., M.S.N. LAB BLOOD ADD-ON Performing Organization Address City/[facility] Phon e Number [facility] - [address] [place], [place] [address] [facility] [place] [address] [facility]-[address] (ABNORMAL) PT (Prothrombin Time) with INR (06/01/2019 3:33 AM CDT) [facility] Method Time Signature Prothrombin 15.7 (H) 9.4 - 12.5 06/01/2019 DTL Time, P sec 4:30 AM CDT INR 1.4 0.9 - 1.1 06/01/2019 DT 4:30 AM CDT Comment: ----ADDITIONAL INFORMATION---- Standard intensity warfarin therapeutic range: 2.0 to 3.0 ?? High intensity warfarin therapeutic rang e: 2.5 to 3.5 Specimen Anatomical Collection Method Collection Time Receive d Time (Source) Location / / Volume Laterality Blood (Blood, 06/01/2019 3:33 AM 06/01/20 19 3:53 Venous) CDT AM CDT Jakob Rivera M.D. LAB BLOOD ADD-ON Performing Organization Address City/[facility] Phon e Number [facility] - [address] [place], [place] [address] [facility] [place], [place] [id number] [place] [address] Heparin Anti-Xa Assay (05/31/2019 9:14 PM CDT) P athologist Signature Heparin 0.40 IU/mL 05/31/2019 DT Anti-Xa, P 9:41 PM CDT Comment: UFH therapeutic range: ?? 0.30-0.70 IU/mL [...] Location / / Volume Laterality Blood (Blood, 05/31/2019 9:14 PM 05/31/20 19 9:30 Venous) CDT PM CDT Zakiya Pope M.D., M.S. LAB BLOOD NON ADD-ON Performing Organization Address City/[facility] Phon e Number [facility] - [address] [place], [place] [address] [facility] [place] [address] [facility] [address] Heparin Anti-Xa Assay (05/31/2019 1:05 PM CDT) P athologist Signature Heparin 0.81 IU/mL 05/31/2019 DTL Anti-Xa, P 1:45 PM CDT Comment: UFH therapeutic range: ?? 0.30-0.70 IU/mL [...] Location / / Volume Laterality Blood (Blood, 05/31/2019 1:05 PM 05/31/20 1:24 Venous) CDT PM CDT Jakob Rivera M.D. LAB BLOOD NON ADD-ON Performing Organization Address City/State/ZIP Code Phon e Number [facility] - [address] [place], [place] [address] [place] [address] Laboratories-[facility] [address] IR FISTULAGRAM (05/31/2019 11:46 AM CDT) Anatomical Region Laterality Modality Upper Extremity, Vascular Interventional RST LOS N/A X-Ray Angiography Specimen (Source) Anatomical Location Collection Method / Collectio n Time Received Time / Laterality Volume Narrative 05/31/2019 12:29 PM CDT Performed by surgeon - see Op Note for r casperult. Guillermo Mcmanus IMG IR PROCEDURES Heparin Anti-Xa Assay (05/31/2019 5:45 AM CDT) P athologist Signature Heparin 0.50 IU/mL 05/31/2019 DTL Anti-Xa, P 6:30 AM CDT Comment: UFH therapeutic range: ?? 0.30-0.70 IU/mL [...] Location / / Volume Laterality Blood (Blood, 05/31/2019 5:45 AM 05/31/20 19 5:59 Venous) CDT AM CDT Alison Romeo APRN, C.N.P., M.S.N. LAB BLOOD NON ADD -ON Performing Organization Address City/[facility] Phon e Number [facility] - [address] Phosphorus Inorganic (05/31/2019 5:45 AM CDT) P athologist Signature Phosphorus 4.4 2.5 - 4.5 05/31/2019 DTL (Inorganic), S mg/dL 8:35 AM CDT Specimen Anatomical Collection Method Collection Time Receive d Time (Source) Location / / Volume Laterality Blood (Blood, 05/31/2019 5:45 AM 05/31/20 6:02 Venous) CDT AM CDT Alison Romeo APRN, C.N.P., M.S.N. LAB BLOOD ADD-ON Performing Organization Address City/State/[facility] Phon e Number [facility] - [address] [place] [address] Laboratories-[address] Magnesium (05/31/2019 5:45 AM CDT) P athologist Signature Magnesium, S 1.7 1.7 - 2.3 05/31/2019 DTL mg/dL 8:35 AM CDT Specimen Anatomical Collection Method Collection Time Receive d Time (Source) Location / / Volume Laterality Blood (Blood, 05/31/2019 5:45 AM 05/31/20 19 6:02 Venous) CDT AM CDT Alison Romeo APRN, C.N.P., M.S.N. LAB BLOOD ADD-ON Performing Organization Address City/State/ZIP Code Phon e Number [facility] - [address] [place], [place] [address] [facility] [place] [address] Laboratories-[facility] [address] (ABNORMAL) BMP (Basic Metabolic Panel) (05/31/2019 5:45 AM CDT) Analysis Performed At Patho logist Time Signature Potassium, S 3.7 3.6 - 5.2 05/31/2019 DTL mmol/L 8:35 AM CDT Sodium, S 140 135 - 145 05/31/2019 DTL mmol/L 8:35 AM CDT Chloride, S 100 98 - 107 05/31/2019 DTL mmol/L 8:35 AM CDT Bicarbonate, S 22 22 - 29 05/31/2019 DTL mmol/L 8:35 AM CDT Anion Gap 18 (H) 7 - 15 05/31/2019 DTL 8:35 AM CDT BUN (Blood Urea 18 6 - 21 05/31/2019 DTL Nitrogen), S mg/dL 8:35 AM CDT Creatinine 4.90 (H) 0.59 - 05/31/2019 DTL 1.04 mg/dL 8:35 AM CDT eGFR-Non <15 (L) >=60 05/31/2019 DTL Black/ mL/min/BSA 8:35 AM CDT [place] Comment: ----ADDITIONAL INFORMATION---- Estimated GFR calculated using the 2009 CKD_EPI creatinine equation. eGFR-Black/ <15 (L) >=60 mL/min/BSA 2018 8:35 AM CDT DTL Comment: ----ADDITIONAL INFORMATION---- Estimated GFR calculated using the 2009 CKD_EPI creatinine equation. Calcium, Total, S 8.7 8.6 - 10.0 mg/dL 05/31/2019 8:35 AM CDT DTL Glucose, S 87 70 - 140 mg/dL 05/31/2019 8:35 AM CDT D TL Specimen Anatomical Collection Method Collection Time Receive d Time (Source) Location / / Volume Laterality Blood (Blood, 05/31/2019 5:45 AM 05/31/20 19 6:02 Venous) CDT AM CDT Alison Romeo APRN, C.N.P., M.S.N. LAB BLOOD ADD-ON Performing Organization Address City/[facility]/ZIP Code Phon e Number [facility] - [address] [place] [address] Laboratories[address] (ABNORMAL) APTT (Activated Partial Thromboplastin Time) (05/31/2019 5:45 AM CDT) P athologist Signature Activated 60 (H) 25 - 37 05/31/2019 DTL Partial sec 6:32 AM CDT Thrombopl Time, P Specimen Anatomical Collection Method Collection Time Receive d Time (Source) Location / / Volume Laterality Blood (Blood, 05/31/2019 5:45 AM 05/31/20 19 5:59 Venous) CDT AM CDT Tre Bear M.D. LAB BLOOD ADD-ON Performing Organization Address City/[facility]/ZIP Code Phon e Number [facility] - [address] [address] Laboratories-[address] (ABNORMAL) PT (Prothrombin Time) with INR (05/31/2019 5:45 AM CDT) Patholo gist Method Time Signature Prothrombin 17.0 (H) 9.4 - 12.5 05/31/2019 DTL Time, P sec 6:32 AM CDT INR 1.5 0.9 - 1.1 05/31/2019 DTL 6:32 AM CDT Comment: ----ADDITIONAL INFORMATION---- Standard intensity warfarin therapeutic range: 2.0 to 3.0 ?? High intensity warfarin therapeutic rang e: 2.5 to 3.5 Specimen Anatomical Collection Method Collection Time Receive d Time (Source) Location / / Volume Laterality Blood (Blood, 05/31/2019 5:45 AM 05/31/20 19 5:59 Venous) CDT AM CDT Tre Bear M.D. LAB BLOOD ADD-ON Performing Organization Address City/[facility]/ZIP Code Phon e Number [facility] - [address] [place] [address] [place] [address] (ABNORMAL) CBC without Differential (05/31/2019 5:45 AM CDT) Patholo gist Method Time Signature Hemoglobin 8.7 (L) 11.6 - 05/31/2019 DTL 15.0 g/dL 6:08 AM CDT Hematocrit 27.4 (L) 35.5 - 05/31/2019 DTL 44.9 % 6:08 AM CDT Erythrocytes 2.94 (L) 3.92 - 05/31/2019 DTL 5.13 6:08 AM CDT x10(12)/L MCV 93.2 78.2 - 05/31/2019 DTL 97.9 fL 6:08 AM CDT RBC Distrib Width 15.5 12.2 - 05/31/2019 DTL 16.1 % 6:08 AM CDT Platelet Count 143 (L) 157 - 371 05/31/2019 DTL x10(9)/L 6:08 AM CDT Leukocytes 5.5 3.4 - 9.6 05/31/2019 DTL x10(9)/L 6:08 AM CDT Specimen Anatomical Collection Method Collection Time Receive d Time (Source) Location / / Volume Laterality Blood (Blood, 05/31/2019 5:45 AM 05/31/20 19 5:59 Venous) CDT AM CDT Paul Gill M.D. LAB BLOOD ADD-ON Performing Organization Address City/State/ZIP Code Phon e Number [address] [place] [address] Heparin Anti-Xa Assay (05/30/2019 11:28 PM CDT) P athologist Signature Heparin 0.64 IU/mL 05/31/2019 DT Anti-Xa, P 12:03 AM CDT Comment: UFH therapeutic range: ?? 0.30-0.70 IU/mL [...] Location / / Volume Laterality Blood (Blood, 05/30/2019 11:28 05/30/2019 Venous) PM CDT 11:41 PM CDT Paul Gill M.D. LAB BLOOD NON ADD-ON Performing Organization Address City/[facility] Phon e Number [facility] - [address] D[address] APTT (Activated Partial Thromboplastin Time) (05/30/2019 3:11 PM CDT) P athologist Signature Activated 26 25 - 37 sec 05/30/2019 STMA Partial 3:23 PM CDT Thrombopl Time, P Specimen Anatomical Collection Method Collection Time Receive d Time (Source) Location / / Volume Laterality Blood (Blood, 05/30/2019 3:11 PM 05/30/20 19 3:14 Venous) CDT PM CDT Sal Rushing M.D. LAB BLOOD ADD-ON Performing Organization Address [facility] Phon e Number [facility] - [address] [place] [address] [place] [address] [place] [address] [address] [facility] (ABNORMAL) PT (Prothrombin Time) with INR (05/30/2019 3:11 PM CDT) [facility] gist Method Time Signature Prothrombin 17.4 (H) 9.4 - 12.5 05/30/2019 STMA Time, P sec 3:21 PM CDT INR 1.6 0.9 - 1.1 05/30/2019 STMA 3:21 PM CDT Comment: ----ADDITIONAL INFORMATION---- Standard intensity warfarin therapeutic range: 2.0 to 3.0 ?? High intensity warfarin therapeutic rang e: 2.5 to 3.5 Specimen Anatomical Collection Method Collection Time Receive d Time (Source) Location / / Volume Laterality Blood (Blood, 05/30/2019 3:11 PM 05/30/20 19 3:14 Venous) CDT PM CDT Sal Rushing M.D. LAB BLOOD ADD-ON Performing Organization Address City/State/ZIP Code Phon e Number [facility] - [address] [place], [place] [address] [facility] [place] [address] Laboratories-[facility] [address] (ABNORMAL) BMP (Basic Metabolic Panel) (05/30/2019 3:11 PM CDT) Analysis Performed At Patho logist Time Signature Potassium, P 3.6 3.6 - 5.2 05/30/2019 STMA mmol/L 3:30 PM CDT Sodium, P 137 135 - 145 05/30/2019 STMA mmol/L 3:30 PM CDT Chloride, P 97 (L) 98 - 107 05/30/2019 STMA mmol/L 3:30 PM CDT Bicarbonate, P 26 22 - 29 05/30/2019 STMA mmol/L 3:30 PM CDT Anion Gap, P 14 7 - 15 05/30/2019 STMA 3:30 PM CDT BUN (Blood Urea 10 6 - 21 05/30/2019 STMA Nitrogen), P mg/dL 3:30 PM CDT Creatinine 3.59 (H) 0.59 - 05/30/2019 STMA 1.04 mg/dL 3:30 PM CDT eGFR-Black/Afri 15 (L) >=60 05/30/2019 STMA can [place] mL/min/BSA 3:30 PM CDT Comment: ----ADDITIONAL INFORMATION---- Estimated GFR calculated using the 2009 CKD_EPI creatinine equation. eGFR Non-Black/ <15 (L) >=60 mL/min/BSA 05/30/2019 3:30 PM CDT STMA [place] Comment: ----ADDITIONAL INFORMATION---- Estimated GFR calculated using the 2009 CKD_EPI creatinine equation. Calcium, Total, P 9.2 8.6 - 10.0 mg/dL 05/30/2019 3:30 PM CDT STMA Glucose, P 80 70 - 140 mg/dL 05/30/2019 3:30 PM CDT S TMA Specimen Anatomical Collection Method Collection Time Receive d Time (Source) Location / / Volume Laterality Blood (Blood, 05/30/2019 3:11 PM 05/30/20 19 3:14 Venous) CDT PM CDT Sal Rushing M.D. LAB BLOOD ADD-ON Performing Organization Address City/State/ZIP Code Phon e Number [facility] - [address] [place], [place] [address] [facility] [place] [place] [address] Laboratories-[facility] [address] (ABNORMAL) CBC with Differential (05/30/2019 3:11 PM CDT) [facility] Method Time Signature Hemoglobin 9.1 (L) 11.6 - 05/30/2019 STMA 15.0 g/dL 3:17 PM CDT Hematocrit 28.7 (L) 35.5 - 05/30/2019 STMA 44.9 % 3:17 PM CDT Erythrocytes 3.05 (L) 3.92 - 05/30/2019 STMA 5.13 3:17 PM CDT x10(12)/L MCV 94.1 78.2 - 05/30/2019 STMA 97.9 fL 3:17 PM CDT RBC Distrib Width 15.3 12.2 - 05/30/2019 STMA 16.1 % 3:17 PM CDT Platelet Count 146 (L) 157 - 371 05/30/2019 STMA x10(9)/L 3:17 PM CDT Leukocytes 7.4 3.4 - 9.6 05/30/2019 STMA x10(9)/L 3:17 PM CDT Neutrophils 4.75 1.56 - 05/30/2019 STMA 6.45 3:17 PM CDT x10(9)/L Lymphocytes 1.58 0.95 - 05/30/2019 STMA 3.07 3:17 PM CDT x10(9)/L Monocytes 0.80 0.26 - 05/30/2019 STMA 0.81 3:17 PM CDT x10(9)/L Eosinophils 0.22 0.03 - 05/30/2019 STMA 0.48 3:17 PM CDT x10(9)/L Basophils 0.05 0.01 - 05/30/2019 STMA 0.08 3:17 PM CDT x10(9)/L Specimen Anatomical Collection Method Collection Time Receive d Time (Source) Location / / Volume Laterality Blood (Blood, 05/30/2019 3:11 PM 05/30/20 19 3:14 Venous) CDT PM CDT Sal Rushing M.D. LAB BLOOD ADD-ON Performing Organization Address City/State/ZIP Code Phon e Number [facility] - [address] [place], [place] [address] [facility] [place] [address] Laboratories-[facility] [address] US Hemodialysis Fistula-Graft Right (05/30/2019 2:25 PM CDT) Anatomical Region Laterality Modality Body, Ultrasound RST LOS, Ultrasound ARZ LOS, Ultrasound FLA Right Ultrasound LOS, Procedural Specimen (Source) Anatomical Collection Method Collection Time Re ceived Time Location / / Volume Laterality 05/30/2019 2:30 PM CDT Impressions 05/30/2019 2:50 PM CDT 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 The findings were di scussed with the referring physician, Dr. Rushing, pager [phone], at 1445 hours today. Narrative 05/30/2019 2:50 PM CDT EXAM: US HEMODIALYSIS FISTULA-GRAFT RIGHT Exam performed with color and spectral D oppler analysis. COMPARISON: 05/11/2018. FINDINGS: There is thrombus without dete ctable blood flow in the right brachial artery to axillary vein hemodialysis gra ft. The findings are consistent with the graft occlusion, which extends from the arterial anastomosis to the venous anastomosis. The right brachial artery i s widely patent with high resistance Doppler waveforms above and below the ar terial anastomosis of the graft. The right axillary vein is patent. Again not ed is a 1.1 x 2.7 x 3.8 cm in size perigraft fluid collection. Procedure Note Rob Barron M.D. - 05/30/2019Forma tting of this note might be different from the original. EXAM: US HEMODIALYSIS FISTULA-GRAFT RIGH T Exam performed with color and spectral D oppler analysis. COMPARISON: 05/11/2018. FINDINGS: There is thrombus without dete ctable blood flow in the right brachial artery to axillary vein hemodialysis gra ft. The findings are consistent with the graft occlusion, which extends from the arterial anastomosis to the venous anastomosis. The right brachial artery i s widely patent with high resistance Doppler waveforms above and below the ar terial anastomosis of the graft. The right axillary vein is patent. Again not ed is a 1.1 x 2.7 x 3.8 cm in size perigraft fluid collection. 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 The findings were di scussed with the referring physician, Dr. Rushing, pager [phone], at 1445 hours today. Sal Rushing M.D. 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 Renal End Stage (HCC) Complication Kidney Transplant (HCC) Transplant Renal (HCC) Anticoagulant Therapy Nicotine Dependence Cigarettes With With drawal Chronic Kidney Disease Stage 5 Glomerula r Filtration Rate Less Than 15 (HCC) Obstruction Ureter documented in this encounter Admitting Diagnoses Diagnosis Thombosis Arteriovenous Fistula Initial (HCC) documented in this encounter Administered Medications Inactive Administered Medications - up to 3 most recent administrations Medication Order MAR Action Action Date Dose Rate Site acetaminophen tablet 1,000 mg Given 05/30/2019 10:12 PM CDT 1,00 0 mg (TYLENOL) 1,000 mg, oral, Every 6 hours PRN, mild pain or score 1-3 of 10, Starting on Sun05/30/19 at 1818 acetaminophen tablet 1,000 mg (TYLENOL) Given 06/06/2019 12:31 PM CDT 1,000 mg 1,000 mg, oral, 4 times daily, First dose on 05/31/19 at 1700 Given 06/05/2019 8:15 PM CDT 1,000 mg Given 06/05/2019 5:03 PM CDT 1,000 mg calcium carbonate chewable tablet Given 06/01/2019 7:4 9 AM CDT 400 mg of calcium 400 mg of calcium (TUMS) 400 mg of calcium, oral, 2 times daily with meals, First dose on 05/31/19 at 0800, Doses listed are in mg of elemental calcium. Take with food. 500 mg calcium carbonate contains 200 mg of elemental calcium. Given 05/31/2019 4:38 PM CDT 400 mg of calcium calcium carbonate chewable tablet Given 06/06/2019 8:1 3 AM CDT 400 mg of calcium 400 mg of calcium (TUMS) 400 mg of calcium, oral, 2 times daily with meals, First dose (after last modification) on 06/01/19 at 1700, Doses listed are in mg of elemental calcium. Take with food. 500 mg calcium carbonate contains 200 mg of elemental calcium. Given 06/05/2019 5:03 PM CDT 400 mg of calcium Given 06/05/2019 7:59 AM CDT 400 mg of calcium gabapentin capsule 200 mg (NEURONTIN) Given 06/06/2019 12:31 PM CDT 200 mg 200 mg, oral, 2 times daily, First dose (after last modification) on Sun05/30/19 at 2130 Given 06/05/2019 8:15 PM CDT 200 mg Given 06/05/2019 8:00 AM CDT 200 mg heparin (porcine) 1,000 unit/mL Given 05/30/2019 6:06 PM CDT 5,8 00 Units injection 5,800 Units 5,800 Units (rounded from 5,820 Units = 60 Units/kg ? 97 kg Dosing weight), intravenous, Once, On Sun05/30/19 at 1739, For 1 dose, Initial Loading Dose, Intensity type: Moderate heparin (porcine) 100 Rate/Dose Change 05/31/2019 12:30 11 Units/kg /hr 10.7 mL/hr Units/mL in D5W 250 mL AM CDT infusion 0-40 Units/kg/hr ? 97 kg Dosing weight (0-38.8 mL/hr), intravenous, Continuous, Starting on Sun05/30/19 at 1739, Premix ba,000 Units in 250 mL, Intensity type: Moderate, Start infusion at: 12 units/kg/hr, antiXa level: Less than 0.1: IV push loading dose 60 units/kg; Continue infusion; Increase IV rate 4 units/kg/hour; Repeat antiXa: 6 hours, antiXa level: 0.1-0.19: IV push loading dose 30 units/kg; Continue infusion; Increase IV rate 2 units/kg/hour; Repeat antiXa: 6 hours, antiXa level: 0.2-0.5: No loading dose; Continue infusion; No change in IV rate; Repeat antiXa: 1st level, recheck at 6 hours then 2nd check and beyond, Next a.m., antiXa level: 0.51-0.6: No loading dose; Continue infusion; Decrease IV rate 1 unit/kg/hour; Repeat antiXa: 6 hours after rate change, antiXa level: 0.61-0.9: No loading dose; Stop infusion for 1 hour; Decrease IV rate 2 units/kg/hour; Repeat antiXa: 6 hours after Heparin resumed, antiXa level: 0.91 or greater: No loading dose; Stop infusion for 2 hours; Decrease IV rate 4 units/kg/hour; Repeat antiXa: 6 hours after Heparin resumed Rate/Dose Verify 05/30/2019 9:00 PM CDT 11.959 Units/kg/hr 11.6 mL/ hr New Bag 05/30/2019 6:05 PM CDT 12 Units/kg/hr 11.6 mL/hr heparin (porcine) 100 Rate/Dose Verify 06/05/2019 8:00 PM 11 Units/ kg/hr 10.7 mL/hr Units/mL in D5W 250 mL CDT infusion 0-40 Units/kg/hr ? 97 kg Dosing weight (0-38.8 mL/hr), intravenous, Continuous, Starting on 05/31/19 at 1400, Premix ba,000 Units in 250 mL, Intensity type: Moderate, Start infusion at: 12 units/kg/hr, antiXa level: Less than 0.1: IV push loading dose 60 units/kg; Continue infusion; Increase IV rate 4 units/kg/hour; Repeat antiXa: 6 hours, antiXa level: 0.1-0.19: IV push loading dose 30 units/kg; Continue infusion; Increase IV rate 2 units/kg/hour; Repeat antiXa: 6 hours, antiXa level: 0.2-0.5: No loading dose; Continue infusion; No change in IV rate; Repeat antiXa: 1st level, recheck at 6 hours then 2nd check and beyond, Next a.m., antiXa level: 0.51-0.6: No loading dose; Continue infusion; Decrease IV rate 1 unit/kg/hour; Repeat antiXa: 6 hours after rate change, antiXa level: 0.61-0.9: No loading dose; Stop infusion for 1 hour; Decrease IV rate 2 units/kg/hour; Repeat antiXa: 6 hours after Heparin resumed, antiXa level: 0.91 or greater: No loading dose; Stop infusion for 2 hours; Decrease IV rate 4 units/kg/hour; Repeat antiXa: 6 hours after Heparin resumed New Bag 06/05/2019 2:56 PM CDT 11 Units/kg/hr 10.7 mL/hr Rate/Dose Verify 06/05/2019 12:00 PM CDT 11.031 Units/kg/hr 10.7 mL /hr multivitamin renal failure 1 tablet Given 06/05/2019 5:03 PM CDT 1 tablet (DIALYVITE) 1 tablet, oral, Every evening, First dose on Sun06/01/19 at 1800, give after dialysis on dialysis days Given 06/04/2019 5:55 PM CDT 1 tablet Given 06/03/2019 5:11 PM CDT 1 tablet mycophenolate capsule 250 mg (CELLCEPT) Given 06/06/2019 12:31 PM CDT 250 mg 250 mg, oral, 2 times daily, First dose (after last modification) on Sun05/30/19 at 2130, Swallow whole. Do NOT crush, chew or open capsule. Given 06/05/2019 8:14 PM CDT 250 mg Given 06/05/2019 8:00 AM CDT 250 mg NaCl 0.9 % bolus 100 mL New Bag 06/02/2019 4:01 PM CDT 36 mL 100 mL, intravenous, As needed, low blood pressure, see comments, Starting on Sun06/02/19 at 1305, For 5 doses, Dialysis, Administer as fast as possible. May repeat x 4 for a total volume of 500 mL for symptomatic hypotension during dialysis. Notify Service if symptomatic hypotension persists after blood pressure support interventions were implemented. naloxone injection 0.2 mg (NARCAN) 0.2 mg, intravenous, As needed, respirat ory depression, Starting on Sun05/30/19 at 2116, For respiratory rate less than 8 b reaths per minute or RASS score of -3, -4, -5. Apply oxygen to keep oxygen saturati ons greater than 90% and notify service. nebivolol tablet 10 mg (BYSTOLIC) Given 06/05/2019 8:16 PM CDT 10 mg 10 mg, oral, Daily at bedtime, First dose (after last modification) on Sun05/30/19 at 2130 Given 06/04/2019 10:05 PM CDT 10 mg Given 06/03/2019 9:06 PM CDT 10 mg nicotine 14 mg/24 hr 1 Medication Applied 06/06/2019 8:13 AM 1 patch Left Shoulder patch (NICODERM CQ) CDT 1 patch, transdermal, Administer over 24 Hours, Daily, First dose on Sun05/30/19 at 2130 Medication Applied 06/05/2019 8:03 AM CDT 1 patch Right Shoulder Medication Applied 06/04/2019 7:40 AM CDT 1 patch Left Shoulder oxyCODONE IR tablet 5 mg (ROXICODONE) Given 06/01/2019 9:27 PM CDT 5 mg 5 mg, oral, Every 4 hours PRN, mild pain or score 1-3 of 10, moderate pain or score 4-6 of 10, Starting on 05/31/19 at 1246, Administer if pain is unrelieved by acetaminophen. May repeat dose once after 1 hour for persistent pain not to exceed 10 mg in 4 hours. Begin oral narcotics ONLY when tolerating oral diet. Given 06/01/2019 2:53 AM CDT 5 mg Given 05/31/2019 8:19 PM CDT 5 mg predniSONE tablet 5 mg (DELTASONE) Given 06/06/2019 12:31 PM CDT 5 mg 5 mg, oral, Daily, First dose on 05/31/19 at 1415 Given 06/05/2019 8:00 AM CDT 5 mg Given 06/04/2019 12:33 PM CDT 5 mg rosuvastatin tablet 5 mg (CRESTOR) Given 06/05/2019 8:15 PM CDT 5 mg 5 mg, oral, Daily at bedtime, First dose (after last modification) on 05/31/19 at 2100 Given 06/04/2019 9:29 PM CDT 5 mg Given 06/03/2019 9:03 PM CDT 5 mg sennosides-docusate sodium 8.6-50 mg per tablet 1 tablet (SENOKOT-S) 1 tablet, oral, Bedtime PRN, constipatio n, Starting on Sun05/30/19 at 1818, do not give if patient has diarrhea. sennosides-docusate sodium 8.6-50 mg per Given 06/04/2019 12 :40 PM CDT 1 tablet tablet 1 tablet (SENOKOT-S) 1 tablet, oral, 2 times daily, First dose on Sun06/01/19 at 0900, Initiate ONLY when taking oral food and fluids. Do not give if patient has diarrhea or ostomy. Given 06/03/2019 8:13 AM CDT 1 tablet Given 06/02/2019 9:27 AM CDT 1 tablet sevelamer tablet 800 mg (RENVELA) Given 06/05/2019 5:03 PM CDT 800 mg 800 mg, oral, Daily, First dose (after last modification) on Sun05/30/19 at 2130, For 49 days Given 06/04/2019 7:18 PM CDT 800 mg Given 06/03/2019 8:13 AM CDT 800 mg sodium chloride 0.9 % flush 100 mL Given 06/04/2019 12:14 PM CDT 40 mL 100 mL, intravenous, As needed, line care, Starting on Sun06/04/19 at 0826, Dialysis, For anticoagulation line to maintain patency of dialysis circuit. sodium chloride 0.9 % flush 250 mL Given 06/02/2019 4:01 PM CDT 250 mL 250 mL, intravenous, As needed, line care, For priming and rinse back post dialysis, Starting on Sun06/02/19 at 1305, Dialysis, Dialysis order only. sodium chloride 0.9 % flush 250 mL Given 06/04/2019 12:14 PM CDT 250 mL 250 mL, intravenous, As needed, line care, For priming and rinse back post dialysis, Starting on Sun06/04/19 at 0826, Dialysis, Dialysis order only. sodium chloride 0.9 % flush 250 mL Given 06/06/2019 8:46 AM CDT 250 mL 250 mL, intravenous, As needed, line care, For priming and rinse back post dialysis, Starting on Sun06/06/19 at 0824, Dialysis, Dialysis order only. sodium chloride 0.9 % injection 10 mL Given 05/31/2019 2:40 PM CDT 10 mL 10 mL, intravenous, As needed, line care, Starting on Sun05/30/19 at 1816, Peripheral Intravenous Catheter and Rapid Infusion Catheter, prior to blood sampling, post blood transfusion or post blood sampling sodium chloride 0.9 % injection 3 mL 3 mL, intravenous, As needed, line care, Starting on Sun05/30/19 at 1816, Prior to and following infusion and between multi ple consecutive infusions: sodium chloride 0.9 % injection sodium chloride 0.9 % injection 3 mL 3 mL, intravenous, Every 12 hours schedu led, First dose on Sun05/30/19 at 2100, Peripheral Intravenous Catheter and Rapi d Infusion Catheter, when no infusion to maintain patency tacrolimus capsule 2 mg (PROGRAF) Given 06/06/2019 12:31 PM CDT 2 mg 2 mg, oral, 2 times daily, First dose (after last modification) on Sun05/30/19 at 2130 Given 06/05/2019 9:00 PM CDT 2 mg Given 06/05/2019 8:00 AM CDT 2 mg warfarin management (COUMADIN) oral, Daily, First dose (after last modification) on S un 06/01/19 at 1700, Pharmacist to Dose: Yes, Target INR: 2.5 - 3.5, Comorb idities that constitute Warfarin Sensitivity: No known comorbidities that reyes ge warfarin sensitivity, Indication: Other, Explanatory Comment: prevention thrombosis arterio-venous graft, Therapy type: Resume Warfarin therapy warfarin tablet 3 mg (COUMADIN) Given 05/31/2019 4:38 PM CDT 3 mg 3 mg, oral, Once, On 05/31/19 at 1700, For 1 dose warfarin tablet 4 mg (COUMADIN) Given 06/01/2019 5:18 PM CDT 4 mg 4 mg, oral, Once, On 06/01/19 at 1700, For 1 dose warfarin tablet 5 mg (COUMADIN) Given 06/02/2019 6:10 PM CDT 5 mg 5 mg, oral, Once, On 06/02/19 at 1700, For 1 dose warfarin tablet 5 mg (COUMADIN) Given 06/03/2019 5:11 PM CDT 5 mg 5 mg, oral, Once, On 06/03/19 at 1700, For 1 dose warfarin tablet 6 mg (COUMADIN) Given 06/04/2019 5:55 PM CDT 6 mg 6 mg, oral, Once, On Sun06/04/19 at 1700, For 1 dose warfarin tablet 7.5 mg (COUMADIN) Given 06/05/2019 5:03 PM CDT 7.5 mg 7.5 mg, oral, Once, On Elizabeth 06/05/19 at 1700, For 1 dose documented in this encounter Active and Recently Administered Medications Times are shown in CDT. Scheduled Medication Order 06/04/2019 06/05/2019 06/06/2019 acetaminophen tablet 1,000 mg (TYLENOL) 5163 (Given - Provider: Huber Ya RDaviNDavi)0069 (Given - Provider: Huber Ya RDaviN.)1755 (Given - Provider: Huber Ya R.N.)2127 (Given - Provider: Janet Landa R.N.) 0759 (Given - Provider: Stephanie Alicea R.N.)1200 (Given - Provider: Stephanie Alicea R.N.)1703 (Given - Provider: Janet Guerin R.N.)2014 (Given - Provider: Destiny Moon RRalf) 0857 (Not Given - Provider: Gonzalo castillo RDaviNDavi - Reason: Patient/family refused - Comment: pt did not want)1231 (Given - Provider: Virgilio Wynne R.N.) 1,000 mg, oral, 4 times daily, First dose on 05/31/19 at 170 0 calcium carbonate chewable tablet 400 mg of calcium (T UMS) 0738 (Given - Provider: Huber Ya R.N.)191 (Given - Provider: Janet Landa R.N. - Comment: pt eating now) 075 (Given - Provider: Stephanie bella R.N.)1703 (Given - Provider: Janet Guerin R.N.) 0813 (Given - Provider: Virgilio Wynne RRalf) 400 mg of calcium, oral, 2 times daily w ith meals, First dose (after last modification) on Sun06/01/19 at 1700, Doses listed are in mg of elemental calcium. Take with food. 500 mg calcium carbonate contains 200 mg of elemental calcium. gabapentin capsule 200 mg (NEURONTIN) 1233 (Given - Pr ovider: Huber Ya R.N.)2127 (Given - Provider: Janet Landa R.N.) 0800 (Given - Provider: Stephanie Alicea R.N.)2014 (Given - Provider: Destiny Moon RShlomo.) 1231 (Given - Provider: Ann ZhouNDavi) 200 mg, oral, 2 times daily, First dose (after last modification) on 05/30/19 at 2130 multivitamin renal failure 1 tablet (DIALYVITE) 1755 ( Given - Provider: Huber Ya R.N.) 1703 (Given - Provider: Janet Guerin R.N.) 1 tablet, oral, Every evening, First dos e on Sun06/01/19 at 1800, give after dialysis on dialysis days mycophenolate capsule 250 mg (CELLCEPT) 1233 (Given - Provider: Huber Ya R.N.)8 (Given - Provider: Janet Landa R.N.) 0800 (Given - Provider: Stephanie Alicea R.N.)2013 (Given - Provider: Destiny Moon R.N.) 1231 (Given - Provider: Virgilio Wynne R.N.) 250 mg, oral, 2 times daily, First dose (after last modification) on Sun05/30/19 at 2130, Swallow whole. Do NOT crush, chew or open capsule. nebivolol tablet 10 mg (BYSTOLIC) 2204 (Given - Provid er: Janet Landa R.N.) 2015 (Given - Provider: Destiny Moon R.N.) 10 mg, oral, Daily at bedtime, First dos e (after last modification) on Sun05/30/19 at 2130 nicotine 14 mg/24 hr 1 patch (NICODERM CQ) 0736 (Medic ation Removed - Provider: Huber Ya R.N.)0740 (Medication Applied - Provider: Huber Ya R.N.) 0800 (Medication Removed - Provider: Stepahnie Alicea R.N.)0803 (Medication Applied - Provider: Stephanie Alicea R.N.) 0813 (Medication Applied - Provider: Virgilio Wynne R.N.)0818 (Medication Removed - Provider: Virgilio Wynne R.N.)1257 (Due: Medication Removed - Provider: Discharge Provider, Automatic - Comment: Time automatically 1 patch, transdermal, Administer over 24 Hours, Daily, First dose on Sun05/30/19 at 2130 adjusted from order being discontinued) predniSONE tablet 5 mg (DELTASONE) 1233 (Given - Provider: Fracisco Ya R.N.) 0800 (Given - Provider: Stephanie Alicea R.N.) 1231 (Given - Provider: Virgilio Wynne R.N.) 5 mg, oral, Daily, First dose on 05/31/19 at 1415 rosuvastatin tablet 5 mg (CRESTOR) 2128 (Given - Provi kristi: Janet Landa R.N.) 2014 (Given - Provider: Destiny Moon R.N.) 5 mg, oral, Daily at bedtime, First dose (after last modification) on 05/31/19 at 2100 sennosides-docusate sodium 8.6-50 mg per tablet 1 tabl et (SENOKOT-S) 1240 (Given - Provider: Huber Ya R.N.)2126 (Not Given - Provider: Janet Landa R.N. - Reason: Patient/family refused) 0800 (Not Given - Provider: Stephanie Alicea R.N. - Reason: Patient/family refused)2014 (Not Given - Provider: Destiny Moon R.N. - Reason: Patient/family refused) 1231 (Not Given - Provider: Virgilio Wynne R.N. - Reason: Patient/family refused) 1 tablet, oral, 2 times daily, First dos e on Sun06/01/19 at 0900, Initiate ONLY when taking oral food and fluids. Do not give if patient has diarrhea or ostomy. sevelamer tablet 800 mg (RENVELA) 1232 (Canceled Entry - Provider: Huber Ya R.N.)1918 (Given - Provider: Janet Landa R.N. - Comment: pt eating now) 170 (Given - Provider: Janet Guerin R.N.) 800 mg, oral, Daily, First dose (after l ast modification) on Sun05/30/19 at 2130, For 49 days sodium chloride 0.9 % injection 3 mL 1241 (Not Given - Provider: Huber Ya R.N. - Reason: Contraindicated)2130 (Not Given - Provider: Janet Landa R.N. - Reason: Other - Comment: heparin running through peripheral IV) 08 (Not Given - Provider: Stephanie Alicea R.N. - Reason: Other)2112 (Not Given - Provider: Destiny Moon R.N. - Reason: Other - Comment: infusing) 0900 (Due - Provider: Transfer Provider, Automatic) 3 mL, intravenous, Every 12 hours schedu led, First dose on Sun05/30/19 at 2100, Peripheral Intravenous Catheter and Rapid Infusion Catheter, when no infusion to maintain patency tacrolimus capsule 2 mg (PROGRAF) 1232 (Given - Provid er: Huber Ya R.N.)2128 (Given - Provider: Ann LightNDavi) 0800 (Given - Provider: Ann NortonNDavi)2100 (Given - Provider: Destiny Moon R.N.) 1231 (Given - Provider: Virgilio Wynne RDaviNDavi) 2 mg, oral, 2 times daily, First dose (a fter last modification) on Sun05/30/19 at 2130 warfarin management (COUMADIN) 1700 (Due) 1700 (Due) oral, Daily, First dose (after last cara fication) on Sun06/01/19 at 1700, Pharmacist to Dose: Yes, Target INR: 2.5 - 3.5, Comorbidities that constitute Warfarin Sensitivity: No known comorbidities that change warfarin sensitivity, Indication : Other, Explanatory Comment: prevention thrombosis arterio-venous graft, Therapy type: Resume Warfarin therapy warfarin tablet 6 mg (COUMADIN) (COMPLETED) 1755 (Give n - Provider: Huber Ya R.N.) 6 mg, oral, Once, On Sun06/04/19 at 1700, For 1 dose warfarin tablet 7.5 mg (COUMADIN) (COMPLETED) 1703 (Given - Provider: Janet Guerin RDaviNDavi) 7.5 mg, oral, Once, On Elizabeth 06/05/19 at 1700, For 1 dose Continuous Medication Order 06/04/2019 06/05/2019 06/06/2019 heparin (porcine) 100 Units/mL in D5W 250 mL infusion (CANCELED) 0505 (Handoff - Provider: Raiza Johnson RDaviNDavi)1551 (New Bag - Provider: Joselin Almanza RDaviNDavi)1920 (Handoff - Provider: Janet Landa R.N.)2300 (Handoff - Provider: Ann GandaraNDavi) 0445 (Handoff - Provider: Carmen Chandler R.N.)0800 (Rate/Dose Verify - Provider: Stephanie Alicea R.N.)1000 (Rate/Dose Verify - Provider: Stephanie Alicea R.N.)1200 (Rate/Dose Verify - Provider: Stephanie Alicea R.N.) 0614 (Handoff - Provider: Carmen Chandler R.N.)0746 (Stopped - Provider: Virgilio Wynne R.N.) 0-40 Units/kg/hr ? 97 kg Dosing weight (0-38.8 mL/hr), intravenous, Continuous, Starting on 05/31/19 at 1400, Premix ba,000 Units in 250 mL, Intensity type: Moderate, Start infusion at: 12 uni 1456 (New Bag - Provider: Haris Kraft RDaviNDavi)1910 (Handoff - Provider: Janet Guerin R.N.)2000 (Rate/Dose Verify - Provider: Destiny Moon R.N.)2306 (Handoff - Provider: Destiny Moon R.N.) ts/kg/hr, antiXa level: Less than 0.1: I V push loading dose 60 units/kg; Continue infusion; Increase IV rate 4 units/kg/hour; Repeat antiXa: 6 hours, antiXa level: 0.1-0.19: IV push loading dose 30 unit s/kg; Continue infusion; Increase IV rat e 2 units/kg/hour; Repeat antiXa: 6 hours, antiXa level: 0.2-0.5: No loading dose; Continue infusion; No change in IV rate; Repeat antiXa: 1st level, recheck at 6 hours then 2nd check and beyond, Next a .m., antiXa level: 0.51-0.6: No loading dose; Continue infusion; Decrease IV rate 1 unit/kg/hour; Repeat antiXa: 6 hours after rate change, antiXa level: 0.61-0.9 : No loading dose; Stop infusion for 1 h our; Decrease IV rate 2 units/kg/hour; Repeat antiXa: 6 hours after Heparin resumed, antiXa level: 0.91 or greater: No loading dose; Stop infusion for 2 hours; De crease IV rate 4 units/kg/hour; Repeat antiXa: 6 hours after Hep umm resumed PRN Medication Order 06/04/2019 06/05/2019 06/06/2019 fentaNYL injection 25 mcg (SUBLIMAZE) 25 mcg, intravenous, Every 1 hour PRN, m oderate pain or score 4-6 of 10, severe pain or score 7-10 of 10, if patient is unable to take oral analgesics, Starting 05/31/19 at 1246, For 2 doses HYDROmorphone (PF) injection 0.4 mg (DILAUDID) 0.4 mg, intravenous, Every 1 hour PRN, m oderate pain or score 4-6 of 10, severe pain or score 7-10 of 10, if patient is unable to take oral analgesics, Starting 05/31/19 at 1246, For 1 dose, If pain score remains 4 or greater 1 hour after the second fentaNYL dose then administer HYDROmorphone. If pain remains 4 or greater after HYDROmorphone administration, call provider. naloxone injection 0.2 mg (NARCAN) 0.2 mg, intravenous, As needed, respirat ory depression, Starting on Sun05/30/19 at 2116, For respiratory rate less than 8 breaths per minute or RASS score of - 3, -4, -5. Apply oxygen to keep oxygen saturations greater than 90% and notify service. naloxone injection 0.2 mg (NARCAN) 0.2 mg, intravenous, As needed, respirat ory depression, Starting 05/31/19 at 1246, For respiratory rate less than 8 breaths per minute or RASS score of -3, -4, -5. Apply oxygen to keep oxygen saturations greater than 90% and notify service. oxyCODONE IR tablet 10 mg (ROXICODONE) 10 mg, oral, Every 4 hours PRN, severe p ain or score 7-10 of 10, Starting 05/31/19 at 1246, Administer if pain is unrelieved by acetaminophen. Do not give more than 10 mg of oxycodone in 4 hours. Be gin oral narcotics ONLY when tolerating oral diet. oxyCODONE IR tablet 5 mg (ROXICODONE) 5 mg, oral, Every 4 hours PRN, mild pain or score 1-3 of 10, moderate pain or score 4-6 of 10, Starting on Sun05/31/19 at 1246, Administer if pain is unrelieved by acetaminophen. May repeat dose once a fter 1 hour for persistent pain not to e xceed 10 mg in 4 hours. Begin oral narcotics ONLY when tolerating oral diet. sennosides-docusate sodium 8.6-50 mg per tablet 1 tablet (SENOKO T-S) 1 tablet, oral, Bedtime PRN, constipatio n, Starting on Sun05/30/19 at 1818, do not give if patient has diarrhea. sodium chloride 0.9 % flush 100 mL (CANCELED) 1214 (Gi maeve - Provider: Rubina Guerrero RDaviN. - Comment: flush) 100 mL, intravenous, As needed, line car e, Starting on Sun06/04/19 at 0826, Dialysis, For anticoagulation line to maintain patency of dialysis circuit. sodium chloride 0.9 % flush 250 mL (CANCELED) 1214 (Gi maeve - Provider: Rubina Guerrero RRalf) 250 mL, intravenous, As needed, line car e, For priming and rinse back post dialysis, Starting on Sun06/04/19 at 0826, Dialysis, Dialysis order only. sodium chloride 0.9 % flush 250 mL (CANCELED) 0846 (Given - Provider: Gonzalo Pedroza R.N. - Comment: prime dialysis) 250 mL, intravenous, As needed, line car e, For priming and rinse back post dialysis, Starting on Sun06/06/19 at 0824, Dialysis, Dialysis order only. sodium chloride 0.9 % injection 10 mL 10 mL, intravenous, As needed, line care , Starting on Sun05/30/19 at 1816, Peripheral Intravenous Catheter and Rapid Infusion Catheter, prior to blood sampling, post blood transfusion or post blood sampling sodium chloride 0.9 % injection 3 mL 3 mL, intravenous, As needed, line care, Starting on Sun05/30/19 at 1816, Prior to and following infusion and between multiple consecutive infusions: sodium chloride 0.9 % injection documented in this encounter Additional Health Concerns Assessment Noted Time PHQ-9 Depression Total Score: 4 01/30/2019 12:13 PM CD T documented as of this encounter
--- OUTSIDE RECORDS SUMMARY | 2022-05-25 13:18 | XMS_ITS | Encounter Summary ---
:1960 Author Organization [facility] Address [address] [place] [address] Care Team Providers Name Role Phone Unavailable Primary Care Provider Unavailable Encounter Details Date Type Department Care Team Description 07/15/2019 Hospital Encounter Department of Guillermo Yu, Chronic Failure Renal Radiology, Earnest Mcmanus End Stage Renal Building, in [address] [facility] Disease Dialysis [place], [place] Dependent (HCC) [address] [facility] [address] [place], [place] [phone] (Work) [phone] Social History Tobacco Use Types Packs/Day Years [...] How often do you attend yazidi or tenriism 1 to 4 times per [...] needed for constipation. sevelamer (RENVELA) 800 Take 1 tablet (800 270 tablet 3 06/2107/17/2019 mg tablet mg total) by mouth 3 (three) times a day with meals. tacrolimus (PROGRAF) 1 Take 2 capsules (2 360 capsule 3 03/201812/08/2019 mg capsule mg total) by mouth 2 (two) times a day. warfarin (COUMADIN) 2 Goal INR 2.5-3.5. 90 tablet 3 019 08/14/2019 mg tablet 06/06/2019- 9: 5mg; 06/09/2019: Check INR and dose per PCP. documented as of this encounter Plan of Treatment Upcoming Encounters Date Type Specialty Care Team Description 06/01/2022 Telemedicine Pharmacy An Nicholas APRN, C.N.P., D.N.P., M.S.N. [address] [place] [address] 55 [phone] (Nicolas wen) 07/31/2022 Lab Laboratory Medicine Tony Rubalcava M. B., Sydnie, Mukund [address] [place] [address] [phone] (Nicolas wen) 07/31/2022 Lab Laboratory Medicine Tony Rubalcava M. B., Sydnie, Mukund [address] [place] [address] [phone] (Nicolas wen) 07/31/2022 Office Visit Transplant Tony Rubalcava M.B., Sydnie, Mukund [address] [place] [address] [phone] (Nicolas wen) 07/31/2022 Appointment Radiology Tony Rubalcava M.B., Sydnie, Mukund [address] [place] [address] [phone] (Nicolas wen) 08/01/2022 Office Visit Transplant Tony Rubalcava M.B., Sydnie, Mukund [address] [place] [address] [phone] (Nicolas wen) 08/01/2022 Clinical Support Transplant Tony Rubalcava M.B., Sydnie, Mukund [address] [place] [address] [phone] (Nicolas wen) documented as of this encounter Procedures Procedure Name Priority Date/Time Associated Comments Diagnosis US HEMODIALYSIS RAD - Routine 07/15/2019 1:47 Chronic Failure Resul ts for this FISTULA-GRAFT RIGHT (most inpatients PM PRODUCER Renal End Stage p rocedure are in and all Renal Disease the results outpatients) Dialysis section. Dependent (HCC) documented in this encounter Results US Hemodialysis Fistula-Graft Right (07/15/2019 1:47 PM PRODUCER) Anatomical Region Laterality Modality Body, Ultrasound RST LOS, Ultrasound ARZ LOS, Ultrasound FLA Right Ultrasound LOS, Procedural Specimen (Source) Anatomical Collection Method Collection Time Re ceived Time Location / / Volume Laterality 07/15/2019 1:55 PM PRODUCER Impressions 07/15/2019 2:29 PM PRODUCER Right brachial-axillary dialysis graft without significant stenosis and with normal flow volumes. ?? Narrative 07/15/2019 2:29 PM PRODUCER EXAM: US HEMODIALYSIS FISTULA-GRAFT RIGHT Exam performed with color and spectral D oppler analysis. COMPARISON: Dialysis ultrasound dated FINDINGS: RIGHT: Postoperative changes of brachial artery to axillary vein synthetic graft. Inflow Artery: Mild irregularity of the brachial artery above the graft anastomosis at a site of previously occl uded dialysis fistula. No significant stenosis in the brachial artery. Antegra de flow in the brachial artery beyond the fistula. Graft: Widely patent without evidence of internal thrombus. Expected interval decrease in postoperative soft tissue ad jacent to the proximal graft anastomosis. The distal graft anastomosi s is patent with borderline elevated Doppler velocities (375 cm/s) which do n ot meet criteria for focal stenosis. Outflow Vein: Patent without stenosis to the level of the confluence. Mildly elevated Doppler velocities in the lower axillary vein (423 cm/s) which diminish slightly with abduction (386 cm/s). No o utflow vein branches. Central Veins: The axillary vein, subcla vian vein, and visualized brachiocephalic vein are widely patent. Fistula Flow Volumes: 1371 mL/m today, p reviously 970 mL/m <500 mL/min = low flow 500-800 mL/min = borderline >800 mL/min = normal Procedure Note Vaibhav Bar M.D. - 07/15/2019For matting of this note might be different from the original. EXAM: US HEMODIALYSIS FISTULA-GRAFT RIGH T Exam performed with color and spectral D oppler analysis. COMPARISON: Dialysis ultrasound dated FINDINGS: RIGHT: Postoperative changes of brachial artery to axillary vein synthetic graft. Inflow Artery: Mild irregularity of the brachial artery above the graft anastomosis at a site of previously occl uded dialysis fistula. No significant stenosis in the brachial artery. Antegra de flow in the brachial artery beyond the fistula. Graft: Widely patent without evidence of internal thrombus. Expected interval decrease in postoperative soft tissue ad jacent to the proximal graft anastomosis. The distal graft anastomosi s is patent with borderline elevated Doppler velocities (375 cm/s) which do n ot meet criteria for focal stenosis. Outflow Vein: Patent without stenosis to the level of the confluence. Mildly elevated Doppler velocities in the lower axillary vein (423 cm/s) which diminish slightly with abduction (386 cm/s). No o utflow vein branches. Central Veins: The axillary vein, subcla vian vein, and visualized brachiocephalic vein are widely patent. Fistula Flow Volumes: 1371 mL/m today, p reviously 970 mL/m <500 mL/min = low flow 500-800 mL/min = borderline >800 mL/min = normal IMPRESSION: Right brachial-axillary dialysis graft w ithout significant stenosis and with normal flow volumes. 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
--- OUTSIDE RECORDS SUMMARY | 2022-05-25 13:19 | XMS_ITS | Encounter Summary ---
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 B complex Take 1 tablet by 0 06/13/2017 05/31/20 19 89-[id number]-[id number]-zinc mouth daily. (DIALYVITE) [phone] sp-ph-onk-mg tablet calcium carbonate Chew 2 tablets 2 0 0 04/07/2022 (TUMS) 500 mg (200 mg (two) times a day calcium) chewable with meals. Lunch tablet and dinner. gabapentin (NEURONTIN) Take 2 capsules (200 120 capsule 11 12/08/2019 100 mg capsule mg total) by mouth 2 (two) times a day. levoFLOXacin (LEVAQUIN) Take 750 mg on 9 tablet 0 05/16/20 19 05/23/2019 250 mg tablet 05/16/19, then 500 mg on 05/18/19, 05/20/19, and 05/22/19. lidocaine-prilocaine Apply 1 application 30 g 11 [...] total) by mouth Transplant Renal (HCC) daily. omeprazole (PriLOSEC) Take 1 capsule (40 60 capsule 11 201809/15/[address] capsule mg total) by mouth 2 (two) times a day before breakfast and dinner. oxyCODONE (ROXICODONE) Take 1 tablet (5 mg 25 tablet 0 04/2106/06/2019 5 mg immediate release total) by mouth tabletIndications: every 4 (four) hours Acute Pain, Acute Pain as needed for mild Exception pain or score 1-3 of 10 or moderate pain or score 4-6 of 10 Indication: Acute Pain, Acute Pain Exception. Wean off as soon as you are able. predniSONE (DELTASONE) Take 1 tablet (5 mg 90 tablet 3 03/201807/10/2019 5 mg tablet total) by mouth daily. rosuvastatin (CRESTOR) Take 1 tablet (5 [...] (two) times a day. warfarin (COUMADIN) 2 Take 2-4 mg by mouth 180 tablet 3 04/2106/06/2019 mg tablet as directed. Sunday, 05/27 -4mg with 2mg the rest of the Week documented as of this encounter Plan of Treatment Upcoming Encounters Date Type Specialty Care Team Description 06/01/2022 Telemedicine Pharmacy An Nicholas APRN, C.NDoc, WhitneyN.P., M.S.N. [address] [place] [address] [phone] (Wo rk) 07/31/2022 Lab Laboratory Medicine Tony Rubalcava M. B., Ch.Maurice, MDebra [address] [place] [address] [phone] (Wo rk) 07/31/2022 Lab Laboratory Medicine Tony Rubalcava M. B., ChBurke, MDebra [address] [place] [address] [phone] (Nicolas rk) 07/31/2022 Office Visit Transplant Tony Rubalcava M.B., ChBurke, MDaviDDavi [address] [place] [address] [phone] (Wo rk) 07/31/2022 Appointment Radiology Tony Rubalcava M.B., ChDaviBDavi, MDebra [address] [place] [address] [phone] (Nciolas rk) 08/01/2022 Office Visit Transplant Tony Rubalcava M.B., ChDaviBDavi, M.D. [address] [place] [address] [phone] (Nicolas wen) 08/01/2022 Clinical Support Transplant Tony Rubalcava M.B., ChBurke, M.D. [address] [place] [address] [phone] (Nicolas wen) documented as of this encounter Procedures Procedure Name Priority Date/Time Associated Comments Diagnosis TACROLIMUS LEVEL, B Routine 05/26/2019 5:30 AM Transplant Jessica l Results for this CDT (HCC) procedure are i n the results section. documented in this encounter Results (ABNORMAL) Tacrolimus, B (05/26/2019 5:30 AM CDT) P athologist Signature Tacrolimus, B 3.4 (L) 5.0-15.0 05/28/2019 [facility] (Trough) 2:09 PM CDT ng/mL Comment: ----ADDITIONAL INFORMATION---- Target steady-state trough concentration s vary depending on the type of transplant, concomitant immunosuppressio n, clinical/institutional protocols, and time post-transplant. Results should be interpreted in conjunction with this clinical information and any physic al signs/symptoms of rejection/toxicity. Testing performed by Liquid Chromatograp hy-Tandem Mass Spectrometry (LC-MS/MS). This test was developed and its performa nce characteristics determined by [facility] in a manner consistent with CLIA requirements. This test has not been cleared or approved by the [place] d and Drug Administration. Specimen Anatomical Collection Method Collection Time Receive d Time (Source) Location / / Volume Laterality Blood (Blood, 05/26/2019 5:30 AM 05/28/20 19 Venous) CDT 10:02 AM CDT Resulting Agency Comment Mailed In Specimen Alexa Adan APRN, C.N.P., D.N.P. LAB BLOOD NON ADD -ON Performing Organization Address City/State/ZIP Code Phon e Number [facility] [address] [place] [address] [facility] [place] [address] Laboratory Medicine and Pathology [address] [place] documented in this encounter Visit Diagnoses Diagnosis Transplant Renal (HCC) documented in this encounter Additional Health Concerns Assessment Noted Time PHQ-9 Depression Total Score: 4 01/30/2019 12:13 PM CD T documented as of this encounter
--- OUTSIDE RECORDS SUMMARY | 2022-05-25 13:19 | XMS_ITS | Encounter Summary ---
:1960 Author Organization [facility] Address [address] [place] [address] Care Team Providers Name Role Phone Unavailable Primary Care Provider Unavailable Reason for Visit Reason Comments Post-op Follow-up Encounter Details Date Type Department Care Team Description 05/20/2019 Documentation Division of Vascular and Viktoria [place], Post-op Follow-up Endovascular Surgery in [facility], C.N.P.[place], [place] M.S.N. [address] [facility] [address] [place] [address] [place], [place] [phone] Social History Tobacco Use Types Packs/Day Years [...] How often do you attend moravian or anabaptist 1 to 4 times per [...] documented as of this encounter Progress Notes Viktoria Ashford APRN C.N.P., M.S.N. - 05/20/2019 10:51 AM CDT Chief Complaint Telephone call. Patient not seen. History of Present Illness Ms. Wray is a [address] Yu who underwent 1st stage brachial basilic arterial venous fistula placement on 05/06/2019. She was discharged home on 05/12/2019. This was a followup phonecall to assess how she is progressing. Ms. Wray has overall been doing well. She reports she continues to have some pain along the incision, but she feels like the incisions are progressing well. She denies any redness, fevers, or drainage at this time. Assessment/Plan Ms. Wray is doing well postoperatively. Postoperative instructions were reviewed and the typical postoperative recovery following a procedure of this type was discussed. It was reiterated for her to contact Dr. Yu's team should any further questions arise. documented in this encounter Plan of Treatment Upcoming Encounters Date Type Specialty Care Team Description 06/01/2022 Telemedicine Pharmacy An Nicholas APRN, C.N.P., Clement., M.S.N. [address] [place] [address] [phone] (Wo rk) 07/31/2022 Lab Laboratory Medicine Tony Rubalcava M. B., ChBurke, MDebra [address] [place] [address] [phone] (Wo rk) 07/31/2022 Lab Laboratory Medicine Tony Rubalcava M. B., ChBurke, MDebra [address] [place] [address] [phone] (Wo rk) 07/31/2022 Office Visit Transplant Tony Rubalcava M.B., Sydnie, Mukund [address] [place] [address] [phone] (Wo rk) 07/31/2022 Appointment Radiology Tony Rubalcava M.B., ChBurke, MDebra [address] [place] [address] [phone] (Wo rk) 08/01/2022 Office Visit Transplant Tony Rubalcava M.B., ChBurke, MDebra [address] [place] [address] [phone] (Wo rk) 08/01/2022 Clinical Support Transplant Tony Rubalcava M.B., Sydnie, MDebra [address] [place] [address] 55 [phone] (Wo rk) documented as of this encounter Visit Diagnoses Not on filedocumented in this encounter Additional Health Concerns Assessment Noted Time PHQ-9 Depression Total Score: 4 01/30/2019 12:13 PM CD T documented as of this encounter
--- OUTSIDE RECORDS SUMMARY | 2022-05-25 13:19 | XMS_ITS | Encounter Summary ---
:1960 Author Organization [facility] Address [address] [place] [address] Care Team Providers Name Role Phone Unavailable Primary Care Provider Unavailable Encounter Details Date Type Department Care Team Description 05/16/2019 Clinical Communication Division of Nephrology Deanne Fisher and Hypertension in L, SALES AND RETAIL MANAGEMENT RECRUITER, C.N.P.[place], [place] M.S.N. [address] [place] [phone] [phone] Social History Tobacco Use Types Packs/Day Years [...] often do you attend roman catholic or shinto 1 to 4 times per [...] this encounter Miscellaneous Notes Addendum Note - Deanne Fisher APRN, C.N.P., M.S.N. - 05/16/2019 12:27 PM CDT Addended by: DEANNE FISHER on: 05/16/2019 12:27 PM Modules accepted: Orders Telephone Encounter - Deanne Fisher APRN, C.NDoc, M.S.N. - 05/16/2019 12:11 PM CDT Ms. Wray was seen during rounds at the [facility] outpatient dialysis unit today. She was noted to have a cough as well as inspiratory and expiratory wheezing upon auscultation. She tells me that her symptoms started yesterday. She is afebrile and hemodynamically stable. Ms. Wray was just discharged from [facility] after being hospitalized for 6 days, putting her at increased risk for hospital acquired pneumonia. She is immunosuppressed in the setting of previous renal transplant. We will go ahead and treat her with oral levofloxacin, 750 mg today and then 500 mg every 48 hours for a total of 1 week )05/18, 05/20 and 05/22). We will decrease her warfarin dose to 2 mg daily for now due to the interaction between warfarin and levofloxacin. We will check a STAT INR at each of her dialysis sessions next week and adjust her warfarin as warranted. I have reviewed potential side effectswith Ms. Wray. The above was reviewed with Dr. Steve Martínez. documented in this encounter Plan of Treatment Upcoming Encounters Date Type Specialty Care Team Description 06/01/2022 Telemedicine Pharmacy An Nicholas APRN, C.N.P., Michelle.N.P., M.S.N. [address] [place] [address] [phone] (Wo rk) 07/31/2022 Lab Laboratory Medicine Tony Rubalcava M. B., Sydnie, MDebra [address] [place] [address] [phone] (Wo rk) 07/31/2022 Lab Laboratory Medicine Tony Rubalcava M. B., Sydnie, Mukund [address] [place] [address] 55 [phone] (Wo rk) 07/31/2022 Office Visit Transplant Tony Rubalcava M.B., Sydnie, MDebra [address] [place] [address] [phone] (Wo rk) 07/31/2022 Appointment Radiology Tony Rubalcava M.B., Sydnie, MDebra [address] [place] [address] 55 [phone] (Wo rk) 08/01/2022 Office Visit Transplant Tony Rubalcava M.B., Sydnie, MDebra [address] [place] [address] 55 [phone] (Nicolas wen) 08/01/2022 Clinical Support Transplant Tony Rubalcava M.B., Sydnie, MElvia. [address] [place] [address] [phone] (Nicolas wen) documented as of this encounter Visit Diagnoses Not on filedocumented in this encounter Additional Health Concerns Assessment Noted Time PHQ-9 Depression Total Score: 4 01/30/2019 12:13 PM CD T documented as of this encounter
--- OUTSIDE RECORDS SUMMARY | 2022-05-25 13:19 | XMS_ITS | Encounter Summary ---
:1960 Author Organization [facility] Address [address] [place] [address] Care Team Providers Name Role Phone Unavailable Primary Care Provider Unavailable Reason for Visit Reason Comments Warfarin dosing Encounter Details Date Type Department Care Team Description 05/19/2019 Clinical Communication Division of Kade Fisher Nephrology and Deanne Bruno Hypertension in [facility], C.N.P.[place], [place] M.S.N. [address] [facility] [address] [place] [address] [phone] Social History Tobacco Use Types Packs/Day Years [...] How often do you attend restorationist or scientology 1 to 4 times per [...] - Deanne Fisher APRN, C.N.P., M.S.N. - 05/19/2019 5:43 PM CDT Ms. Wray had a STAT INR drawn at the [facility] outpatient dialysis unit today. This returned at 3.6. Her previous level had been 1.8 on May 14, 2019. Her recent dosing for warfarin has been the following: April 18- 3 mg May 08- 3 mg April 20- 4 mg May 10- 4 mg May 11- 4 mg May 12- 4 mg (hospital discharge) May 13- 4 mg May 14- 2 mg May 15- 4 mg May 16- 2 mg (Levofloxain initiated for respiratory infection) May 17- 2 mg May 18- 2 mg I called and spoke with Ms. Wray via telephone call to review her INR result. She tells me thatshe has already taken her warfarin today, 2 mg dose. She continues on oral levofloxacin for her respiratory illness, which is improving. She is due for her last dose of oral levofloxacin on May 22, 2019. I have asked Ms. Wray to hold her warfarin dose tomorrow and we will recheck her INR on Sunday, May 21, 2019 when she next dialyzes at the [facility] outpatient dialysis unit again. Iwill update her regarding this level and recommendations for her dose, once the INR has resulted on . We are still working on setting her up with the [place] anticoagulation clinic for routine monitoring of her INR and warfarin dosing. documented in this encounter Plan of Treatment Upcoming Encounters Date Type Specialty Care Team Description 06/01/2022 Telemedicine Pharmacy An Nicholas APRN, C.N.P., Michelle.N.P., M.S.N. [address] [place] [address] [phone] (Nicolas wen) 07/31/2022 Lab Laboratory Medicine Tony Rubalcava M. B., ChBurke, MElvia. [address] [place] [address] 55 [phone] (Nicolas wen) 07/31/2022 Lab Laboratory Medicine Tony Rubalcava M. B., ChDaviBDavi, MDaviDDavi [address] [place] [address] [phone] (Nicolas wen) 07/31/2022 Office Visit Transplant Tony Rubalcava M.B., ChBurke, M.DDavi [address] [place] [address] 55 [phone] (Nicolas wen) 07/31/2022 Appointment Radiology Tony Rubalcava M.B., ChDaviBDavi, MDaviD. [address] [place] [address] 55 [phone] (Nicolas wen) 08/01/2022 Office Visit Transplant Tony Rubalcava M.B., ChDaviBDavi, M.D. [address] [place] [address] 55 [phone] (Nicolas wen) 08/01/2022 Clinical Support Transplant Tony Rubalcava M.B., Mukund [place] [address] [place] [address] [phone] (Wo rk) documented as of this encounter Visit Diagnoses Not on filedocumented in this encounter Additional Health Concerns Assessment Noted Time PHQ-9 Depression Total Score: 4 01/30/2019 12:13 PM CD T documented as of this encounter
--- OUTSIDE RECORDS SUMMARY | 2022-05-25 13:19 | XMS_ITS | Encounter Summary ---
:1960 Author Organization [facility] Address [address] [place] [address] Care Team Providers Name Role Phone Unavailable Primary Care Provider Unavailable Encounter Details Date Type Department Care Team Description 05/21/2019 Clinical Communication Division of Nephrology Steve Martínez and Hypertension in Fracisco Garcia D.O. [place], [place] [address] [place] [address] 200 [place] [address] [phone] Social History Tobacco Use Types Packs/Day Years [...] How often do you attend methodist or jewish 1 to 4 times per [...] Encounter - Steve Martínez Jr., D.O. - 05/21/2019 5:53 PM CDT On our daily communication I was notified that her right upper extremity graft is quite red, warm, and swollen. She had previously been on a 1st generation cephalosporin, but developed pneumonitis. Shewas switched to Levaquin. Unfortunately now her access seems to be worsening. I have asked the team to check blood cultures when she arise for dialysis on Sunday, and then administer 1 g IV of vancomycin on Sunday for the next 4 sessions thereafter. We are monitoring her INR at each dialysis session, she has had extremely variable INRs. Earlier this week her INR was up to 3.6, prompting us to hold her Coumadin for a day. As she return to dialysis the INR had declined to 1.3. She is currently using 2 mg of Coumadin daily. Fortunately, her new tunneled right external jugular dialysis catheter is working well. documented in this encounter Plan of Treatment Upcoming Encounters Date Type Specialty Care Team Description 06/01/2022 Telemedicine Pharmacy An Nicholas APRN, C.N.P., D.N.P., M.S.N. [address] [place] [address] [phone] (Wo rk) 07/31/2022 Lab Laboratory Medicine Tony Rubalcava M. B., Sydnie, Mukund [address] [place] [address] [phone] (Wo rk) 07/31/2022 Lab Laboratory Medicine Tony Rubalcava M. B., Sydnie, Mukund [address] [place] [address] [phone] (Wo rk) 07/31/2022 Office Visit Transplant Tony Rubalcava M.B., Sydnie, Mukund [address] [place] [address] [phone] (Wo rk) 07/31/2022 Appointment Radiology Tony Rubalcava M.B., Sydnie, MDebra [address] [place] [address] [phone] (Wo rk) 08/01/2022 Office Visit Transplant Tony Rubalcava M.B., ChBurke, MDebra [address] [place] [address] [phone] (Wo rk) 08/01/2022 Clinical Support Transplant Tony Rubalcava M.B., Sydnie, MDebra [address] [place] [address] [phone] (Wo rk) documented as of this encounter Visit Diagnoses Not on filedocumented in this encounter Additional Health Concerns Assessment Noted Time PHQ-9 Depression Total Score: 4 01/30/2019 12:13 PM CD T documented as of this encounter
--- OUTSIDE RECORDS SUMMARY | 2022-05-25 13:19 | XMS_ITS | Encounter Summary ---
:1960 Author Organization [facility] Address [address] [place] [id number] Care Team Providers Name Role Phone Unavailable Primary Care Provider Unavailable Encounter Details Date Type Department Care Team Description 05/30/2019 Clinical Communication Division of Nephrology Steve Martínez and Hypertension in Fracisco Garcia D.O. [place], [place] [address] [place] [address] [address] [place] [id number] [phone] Social History Tobacco Use Types Packs/Day Years [...] How often do you attend catholic or worship 1 to 4 times [...] Encounter - Steve Martínez Jr., D.O. - 05/30/2019 6:25 AM CDT Phone call at 5:45 a.m. this morning from the [facility] dialysis unit. I was informed that as she arrived to dialysis today, the right upper extremity graft was quiet, andfirm, without a bruit or a thrill. Her hand is not compromised, her vital signs are stable. She feels well has no shortness of breath, nor chest pain. Most recent INR was 1.8 on Sunday. She is being monitored by the Coumadin clinic at the [facility] facility. She is completing a course of Levaquin for an upper respiratory infection, and is receiving her lastdose of vancomycin for the graft today. The graft had been quite warm, red, and swollen, along its length last week but particularly at the anastomosis and in the axilla. Blood cultures were drawn and were negative, and I initiated her on a course of vancomycin. She left the hospital on a cephalosporin agent. The redness had developed while she was on this agent. I discussed the circumstance with our vascular surgical colleagues from 's service this morning, and they are graciously going to have her come to the ER and try to deal with this difficult situation. I have communicated back to the dialysis unit, and spoken directly to Ms. Turnbaugh, she is understandably upset but we will arrange for a ride from her father, to have this issue dealt with. Of note, when I visited with her during the rounds on Sunday05/28/19 (please see Care everywhere for [facility] notes), she was having some discomfort up in the right axilla which seem to be from the folded skin and sutures. The graft had an excellent bruit and thrill at that point. 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 [address] [place] [address] [id number] (Wo rk) 07/31/2022 Lab Laboratory Medicine Tony Rubalcava M. B., [place], MDebra [address] [place] [address] [id number] (Wo rk) 07/31/2022 Lab Laboratory Medicine Tony Rubalcava M. B., [place], MDebra [address] [place] [address] [id number] (Wo rk) 07/31/2022 Office Visit Transplant Tony Rubalcava M.B., Sydnie, MDebra [address] [place] [address] [id number] (Wo behzad) 07/31/2022 Appointment Radiology Tony Rubalcava M.B., [place]und [place] [address] [place] [address] [id number] (Wo behzad) 08/01/2022 Office Visit Transplant Tony Rubalcava M.B., Mukund [place] [address] [place] [address] [id number] (Nicolas wen) 08/01/2022 Clinical Support Transplant Tony Rubalcava M.B., Sydnie, Mukund [address] [place] [address] [id number] (Nicolas wen) documented as of this encounter Visit Diagnoses Not on filedocumented in this encounter Additional Health Concerns Assessment Noted Time PHQ-9 Depression Total Score: 4 01/30/2019 12:13 PM CD T documented as of this encounter
--- OUTSIDE RECORDS SUMMARY | 2022-05-25 13:19 | XMS_ITS | Encounter Summary ---
:1960 Author Organization [facility] Address [address] [place] [address] Care Team Providers Name Role Phone Unavailable Primary Care Provider Unavailable Reason for Visit Reason Comments Dialysis Fistula oclussion Encounter Details Date Type Department Care Team Description 05/31/2019 Surgery RST ROMB HECTOR OR Guillermo Yu, Right brachio-axillary [address] [facility] M.B.B.[place]. [place] [address] [address] [facility] thromboembolectomy, [place], [place] [id number] venous anastomosis Social History Tobacco Use Types Packs/Day Years Used Date Smoking Tobacco: Every Day Cigarettes 0.5 45 S tarted: 08/20/1973 Smokeless Tobacco: Never Tobacco Cessation: Ready to Quit: Yes; Fracisco pierre Given: Yes Alcohol Use Standard Drinks/Week Comments [...] Sign Reading Time Taken Comments Blood Pressure 166/98 05/31/2019 8:00 AM CDT Pulse 66 05/31/2019 8:00 AM CDT Temperature 36.6 ??C (97.9 ??F) 05/31/2019 8:00 AM CDT Respiratory Rate 16 05/31/2019 8:00 AM CDT Oxygen Saturation 96% 05/31/2019 8:00 AM CDT Inhaled Oxygen Concentration - - Weight 97.7 kg (215 lb 6.2 oz) 05/31/2019 4:00 AM CDT Height 164 cm (5' 4.57) 05/30/2019 11:31 AM CDT Body Mass Index 36.18 05/30/2019 11:31 AM CDT documented in this encounter Discharge Summaries Farzana Amaya APRN, C.N.P. - 06/06/2019 8:00 AM CDT DISCHARGE SUMMARY BRIEF OVERVIEW Discharge Provider: Guillermo Yu M.B.B.S. Primary Care Provider: Elena Morataya PA-C [address] [place] [address] Primary Care Provider Primary Care Provider Admission [...] OR WITHOUT INTERVENTION UPPER EXTREMITY Guillermo Yu M.B.B.S.Cajas-Monson, Luis C, M.D., M.P.H.Tre Bear M.D.Soukup, Dylan S, M.D. [...] contact the dialysis access clinic by calling [phone]. Should you need to contact Dr. Yu or his service, you may do so through his medical transcriber at during normal business hours of 8 to 5 Sunday through Sunday or, in an emergency situation, through the [facility] furnace operator and tender at . Vascular medicine recommended outpatient follow-up at their thrombophilia Clinic, this request has been placed and you will be contacted with these appointments. None OUTPATIENT FOLLOW UP Future Appointments Date Time Provider Department Center 06/24/2019 9:45 AM US ROGO 04 RM 04 RAD US ROGO4 RST Spec 06/24/2019 11:30 AM REE DLS NURSE 01 ROEI NEP ROEI RST [...] IP CONSULT TO NEPHROLOGY IP CONSULT TO PODIATRY DOCTOR IP CONSULT TO INTERNAL MEDICINE NICOTINE DEPENDENCE [...] vein with flow velocitiesup to 556 cm/s. 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 Thefindings were discussed with the referring physician, Dr. Rushing, pager [phone], at 1445 hours today. Bld Urea Nitrog(BUN), [...] dialysis satisfactorily. Can be dismissed following hemodialysis. TOT Jefferson Farfan M.D. - 06/06/2019 8:30 AM CDT Liseis Arteriovenous Fistula Initial (HCC) SUBJECTIVE Events over [...] Johnson, R.N.) I/O 06/05 0000 - 06/05 2359 06/06 0000 - 06/06 2359 P.O. 680 300 [...] Filtration Rate Less Than 15 ([facility]) 4. Transplant Renal ([facility]) 5. Obstruction Ureter Ms. Wray is [...] thrill in proximal arm over AV graft. Susan remained in-hospital on heparin drip awaiting therapeutic [...] to contact the Aimee service at pager #[phone] with any questions or concerns. Jefferson Farfan M.D. Pager: [phone] Ata Hayden M.D. - 06/06/2019 7:16 AM [...] was lacking a thrill/bruit on Sunday at [facility] with subsequent ultrasound at [facility] revealing the graft thrombosed and there was [...] medications for GFR Staffed with Nephrology B Manager Trade Marketing Dr. Brooks. We will sign off as patient is discharging. Please contact the Nephrology B service pager at [phone] with any questions or concerns. Guido Hayden M.D. Internal Medicine, PGY-2 06/06/19 Jefferson Farfan M.D. - 06/05/2019 1:54 PM [...] Pulse Rate: [73-84] 75 Respiratory Pattern: Regular (06/04/19 0300 : Raiza Johnson R.N.) Respiratory Effort: Unlabored (06/04/19 0300 : Raiza Johnson R.N.) I/O 06/04 0000 [...] Behavior normal. LABORATORY STUDIES Recent Labs 06/05/19 035 NA 136 K 4.5 CL 95 L MG 2.0 CALCIUM 9.2 GLUCOSE 83 BUN 22 H CREATININE 4.26 H Recent Labs 06/05/19 0351 06/05/19 035 WBC 6.9 -- HGB 8.9 L -- [...] 1. * (Principal) Thombosis Arteriovenous Fistula Initial ([facility]) 2. Complication Kidney Transplant ([facility]) 3. Chronic Kidney Disease Stage 5 Glomerular Filtration Rate Less Than 15 ([facility]) 4. Transplant Renal ([facility]) 5. Obstruction Ureter Ms. Wray is [...] to contact the Aimee service at pager #[phone] with any questions or concerns. Jefferson Farfan M.D. Pager: [phone] Elena Mitchell Pharm.D., R.Ph. - 06/05/2019 8:00 [...] 800 mg (RENVELA) 800 mg oral Daily 05/30/19211507/18/19 1759 Vitamin K-Containing Medications (168h ago, onward) [...] ?? Elena Mitchell Pharm.D., R.Ph. ?? Contact [phone] with any questions about this note. Juventino [...] was lacking a thrill/bruit on Sunday at [facility] with subsequent ultrasound at [facility] revealing the graft thrombosed and there was [...] medications for GFR Staffed with Nephrology B Manager Trade Marketing Dr. Brooks. We will continue to follow. Please contact the Nephrology B service pager at [phone] with any questions or concerns. Anant Valdes [...] Respiratory Pattern: Regular (06/04/19 0300 : Raiza Johnson, R.N.) Respiratory Effort: Unlabored (06/04/19 0300 : Raiza Johnson, R.N.) I/O 06/02 - 06/02 - 06/03 - 06/04 2359 P.O. 780 750 500 [...] thrill in proximal arm over AV graft. Colleenins in-hospital on heparin drip awaiting therapeutic INR [...] to contact the Aimee service at pager #[phone] with any questions or concerns. Jefferson Farfan M.D. Pager: [phone] Elena Mitchell Pharm.D., R.Ph. - 06/04/2019 8:22 [...] the hospital. Elena Mitchell Pharm.D., R.Ph. Contact [phone] with any questions about this note. Jefferson Ding M.D. - 06/03/2019 8:10 AM CDT Thombosis [...] Effort: Unlabored (05/31/19 1200 : Mable Milian RDaviN.) I/O 06/01 0000 - 06/01 23506/02 0000 - 06/02 23506/03 0000 - 06/03 2359 P.O. 480 780 Crystalloid Bolus 36 Continuous [...] 1. * (Principal) Thombosis Arteriovenous Fistula Initial ([facility]) 2. Complication Kidney Transplant ([facility]) 3. Chronic Kidney Disease Stage 5 Glomerular Filtration Rate Less Than 15 ([facility]) 4. Transplant Renal ([facility]) 5. Obstruction Ureter Ms. Wray is [...] thrill in proximal arm over AV graft. Sheremains in-hospital on heparin drip awaiting therapeutic INR [...] Please do not hesitate to contact the Aieme service at pager #[phone] with any questions or concerns. Jefferson Farfan M.D. Pager: [phone] Elena Mitchell PharmDebra, R.Ph. - 06/03/2019 8:08 AM CDT Warfarin [...] until discharge from the hospital. Elena Mitchell, Pharm.D., R.Ph. Contact [phone] with any questions about this note. Davis [...] was lacking a thrill/bruit on Sunday at [facility] with subsequent ultrasound at [facility] revealing the graft thrombosed and there was [...] the patient's primary nephrology, he agrees with phyllis for anticoagulation. ?? # ESRD secondary to [...] medications for GFR Staffed with Nephrology B Manager Trade Marketing Dr. Harrell. We will continue to follow. Please contact the Nephrology B service pager at [phone] with any questions or concerns. Anant Valdes M.D. Internal Medicine, PGY-2 06/02/19 Elena Mitchell, PharmDaviD., R.Ph. - 06/02/2019 12:20 PM CDT Warfarin [...] the hospital. Elena Mitchell Pharm.D., R.Ph. Contact [phone] with any questions about this note. Jefferson [...] 109 Respiratory Effort: Unlabored (05/31/19 1200 : Jaun Miguelp, Mable, R.N.) I/O 05/31 - 05/31 P.O. [...] thrill in proximal arm over AV graft. Colleenins in-hospital on heparin drip awaiting therapeutic INR [...] to contact the Aimee service at pager #[phone] with any questions or concerns. Jefferson Farafn M.D. Pager: [phone] Jefferson Farfan M.D. - 06/01/2019 10:22 AM CDT Thombosis Arteriovenous Fistula Initial (HCC) [...] 1. * (Principal) Thombosis Arteriovenous Fistula Initial ([facility]) 2. Complication Kidney Transplant ([facility]) 3. Chronic Kidney Disease Stage 5 Glomerular Filtration Rate Less Than 15 ([facility]) 4. Transplant Renal (HCC) 5. Obstruction Ureter [...] to contact the Aimee service at pager #[phone] with any questions or concerns. Jefferson Farfan M.D. Pager: [phone] Rema Ashford PharmDaviD., R.Ph. - 06/01/2019 8:17 AM CDT Warfarin [...] until discharge from the hospital. Rema Ashford PharmDaviD., R.Ph. Contact [phone] with any questions about this note. Davis [...] was lacking a thrill/bruit on Sunday at [facility] with subsequent ultrasound at [facility] revealing the graft thrombosed and there was [...] [facility] for further considerations on anticoagulation. ?? # [...] I will touch base with the primary nocturnist physician today and see if he has other recommendations concerning anticoagulation. Standard Recommendations: - Daily weights and strict I/Os - Maintain MAP>65 mmHg - Avoid all nephrotoxins, if possible (contrast dye, unnecessary antibiotics, NSAIDs) - Renally dose/adjust all medications for GFR Staffed with Nephrology B Manager Trade Marketing Dr. Harrell. We will continue to follow. Please contact the Nephrology B service pager at [phone] with any questions or concerns. Anant Valdes [...] from Dr. Martínez, her primary outpatient dialysis nocturnist physician regarding anticoagulation. It appears in the record [...] until discharge from the hospital. Rema Ashford Pharm.D., R.Ph. Contact [phone] with any questions about this note. TOT Jefferson Farfan M.D. - 05/31/2019 7:30 AM [...] : Rukhsana, Mable, R.N.) I/O 05/30 - 05/309 05/31 - 05/31 235 P.O. 500 Maintenance IV 700 Continuous Medications [...] to contact the Aimee service at pager #[phone] with any questions or concerns. Jefferson Farfan M.D. Pager: [phone] documented in this encounter Consult Notes Pretty Bray M.A., C.T.T.S. - 06/02/2019 10:49 AM CDTAssociated Order(s): IP CONSULT TO INTERNAL MEDICINE NICOTINE DEPENDENCE SUBJECTIVE Consults REASON FOR CONSULT Admitting Service: Vascular Surgery Reason for Consult: Tobacco Use Disorder HISTORY OF PRESENT ILLNESS Shabnam Wray is a 58 y.o. female who was seen at [facility] and is being evaluated for Tobacco Use [...] a Smoke-Free Future. Follow-Up: I encouraged Shabnam JDavi Wray to contact me with any questions or concerns. I provided the patientwith educational materials. Provided patient with [facility] contact information.. Patient is ready to learn, No apparant barriers to learning were identified. Patient understands andagrees with plan. 40 minutes of our visit was spent on tobacco use disorder counseling. Pretty Bray M.A., C.T.T.S. 06/02/2019 10:49 AM Chiara Rod L.G.S.W., M.S.W. - 06/01/2019 10:45 AM CDTAssociated Order(s): IP CONSULT TO CARE MANAGEMENT; IP CONSULT TO CARE MANAGEMENT Psychosocial Assessment SUBJECTIVE DEMOGRAPHIC INFORMATION Referral Source: CM/SW Referral Referral Reason: Advanced Directives Person(s) present during interview: Patient Primary care clinic and provider: Patient reports she has a PCP at the [facility], but cannot think of their name. Primary Language: Guyanese Lockstitch Lining Maker Services Used: No Legal Information: Legal Decision [...] Communication: Can write, Talks, Understands speaking, Understands Guyanese, Reads It is anticipated that the patient will need assistance with None. ASSISTIVE DEVICES Patient has the following equipment: None Patient anticipates potentially needing the following additional equipment: None Transportation needs: Independent to drive, Support from family SERVICES REQUESTED None at this time CORPORATE EVENT PLANNER Formal and Informal Resources: Patient denies receiving any formal services. Informal support is provided by her daughter, friends, and her dad. FINANCES/INSURANCE Primary insurance: MEDICARE A AND B Secondary insurance: [place] MEDICAID Income Information Does the Patient have [...] with state of illness?: No Fear of retirement/extended hospitalization?: No Coping with recent loss/disruption in [...] Health Care Planning: Making Your Wishes Known?? [id number] booklet. The patient report no further questions or concerns regarding advance directives Apsychosocial assessment was also completed. The patient reports that she is very frustrated and feeling a little down due to ???always needing to have something done in the hospital or at the clinic.?? She reports that she has made plans to go to [place] for 2 weeks leaving June 10 to [...] pleasant 58 year [facility]. She was alert and [...] desired. 2) Notary needs to witness signature, nursing unit clerk can arrange. 3) Patient should provide a copy for the medical record once complete. 4) Social Work is available should further questions arise. Anticipated barriers to the transition of care/plan: None at this time Lorena Melendez., M.S.W. 06/01/2019 Armani Judd M.D., Ph.D. - [...] Renal (HCC) [Z94.0] Thombosis Arteriovenous Fistula Initial ([facility]) [T82.868A]. The patient will need now [...] consult (hospital) Referring Provider: Alison Romeo APRN, C.N.P., M.S.N. Reason for Consult: Dialysis dependent, proceeding [...] on 05/30 as a referral from the [facility] dialysis center due to concern for occlusion ofright upper extremity AV graft. She has a right sided tunneled dialysis catheter in place which she has been using placed on 05/05/2019. At the [facility], they noted that the new graft no longer had a bruit or thrill which prompted them to send her to the [facility]. Per [facility] records from [facility], the thrill and bruit had been [...] was lacking a thrill/bruit on Sunday at [facility] with subsequent ultrasound at [facility] revealing the graft thrombosed and there was [...] using athome. - Hectorol is not on [place] formulary and will not be administered while [...] medications for GFR Staffed with Nephrology B Manager Trade Marketing Dr. Harrell. We will continue to follow. Please contact the Nephrology B service pager at [phone] with any questions or concerns. Anant Valdes [...] May 06, 2019. She undergoes dialysis at [facility] where it was noted on Sunday that the graft is thrombosed. She underwent thrombectomy this morning. INR was subtherapeutic on admission. She has had multiple thrombosis events. Of note also she is on chronic immunosuppression following kidney transplant which has failed which was performed at the [facility]. Surgeries performed in 2007 and kidney failed [...] Extremities no edema #1 Complication Kidney Transplant ([facility]) #2 Chronic Kidney Disease Stage 5 Glomerular Filtration Rate Less Than 15 ([facility]) #3 Transplant Renal ([facility]) #4 Obstruction Ureter #5 Thombosis Arteriovenous Fistula Initial ([facility]) We recommend vascular Medicine input regarding anticoagulation management -this patient has had multiple venous and now graft thrombosis. She is a candidate for future kidney transplant. She is subtherapeutic on warfarin which is monitored regularly. As her next dialysis session is Sunday we will arrange for her dialysis Sunday [...] from heparin to Coumadin. She returned to [facility] Department for concerns of the right [...] presenting with complete graft thrombus with patent [place] artery and vein on 05/30/19 #2 ESRD [...] 1 End of Shift Summary: Pt managed 5-03/29 pain in R arm with intermittent oxycodone, tylenol, and elevation. Rested fairly well overnight with no complaints. documented in this encounter OR Notes Op Note - Guillermo Yu M.B.B.S. - 05/31/2019 9:38 AM CDT FULL OP NOTE Procedure(s) (LRB): Right brachio-axillary arterio-venous graft thromboembolectomy, Balloon angioplasty of venous anastomosis (Right) FISTULOGRAM WITH OR WITHOUT INTERVENTION UPPER EXTREMITY (Right) Surgeon(s) and Role: * Guillermo Yu M.B.BDaviS. - Primary * Jakob Rivera M.D., M.P.H. - Dean Of Education * Jefferson Farfan M.D. - Other Admission Specialist * Tre Bear M.D. - Other Admission Specialist Anesthesia Type General Pre-operative Diagnosis AV Graft [...] balloon angioplasty up to a 7 mm communication technician balloon. There was still about 30% stenosis [...] Estimated Blood Loss 50 mL Implants None Ty AdenS. Brief Op Note - Jakob Rivera M.D., M.P.H. - 05/31/2019 9:38 AM CDT BRIEF OP NOTE Procedure(s) (LRB): Right brachio-axillary arterio-venous graft thromboembolectomy, Balloon angioplasty of venous anastomosis (Right) FISTULOGRAM WITH OR WITHOUT INTERVENTION UPPER EXTREMITY (Right) Surgeon(s) and Role: * Guillermo Yu M.B.B.S. - Primary * Jakob Rivera M.D., M.P.H. - Dean Of Education * Jefferson Farfan M.D. - Other Admission Specialist * Tre Bear M.D. - Other Admission Specialist Anesthesia Type General Pre-operative Diagnosis AV Graft thrombosis in the RUE Post-operative Diagnosis AV Graft thrombosis in the RUE Findings Palpable thrill over fistula. Palpable radial pulse at end of procedure. Complications None Specimens None Drains None Estimated Blood Loss 5 mL Implants None Diomedesmaureen Rivera M.D., M.P.H. Fellow Division of Vascular and Endovascular Surgery [phone] documented in this encounter ED Notes Maddison [...] Emergency Department as a referral from the [facility] with concern for occlusion [...] accurate and complete. Maddison George M.D. 05/30/19 1807 Maddison George M.D. 05/30/19 1809 Maddison George [...] 18 (!) 147/91 98 % Pain Score 10/11/19 1315 6 PHYSICAL EXAMINATION Constitutional: She is [...] George ED Course as of May 30 1702SunMay 30, 2019 1535 US shows graft thrombosis. [...] time patient was awaiting vascular surgery evaluation. 1702 Subtherapeutic INR INR: 1.6 Sal Rushing M.D. [...] An Nicholas APRN, C.NDaviPDavi, D.N.P., M.S.N. [address] [place] [address] [phone] (Wo rk) 07/31/2022 Lab Laboratory Medicine Tony Rubalcava M. B., Sydnie, MDebra [address] [place] [address] [phone] (Wo rk) 07/31/2022 Lab Laboratory Medicine Tony Rubalcava M. B., Sydnie, Mukund [address] [place] [address] [phone] (Wo rk) 07/31/2022 Office Visit Transplant Tony Rubalcava M.B., Sydnie, Mukund [address] [place] [address] [phone] (Wo rk) 07/31/2022 Appointment Radiology Tony Rubalcava M.B., Sydnie, Mukund [address] [place] [address] [phone] (Wo rk) 08/01/2022 Office Visit Transplant Tony Rubalcava M.B., Sydnie, MDebra [address] [place] [address] [phone] (Wo rk) 08/01/2022 Clinical Support Transplant Tony Rubalcava M.B., Sydnie, MDebra [address] [place] [address] [phone] (Wo rk) documented as of [...] Time) with INR (06/06/2019 5:06 AM CDT) Diagonal View Method Time Signature Prothrombin 27.5 (H) 9.4 [...] Laterality Blood (Blood, 06/06/2019 5:06 AM 06/06/20 19 5:30 Venous) CDT AM CDT Guillermo Mcmanus LAB BLOOD ADD-ON Performing Organization Address City/State/ZIP Code Phon e Number [facility] [address] [place], [place] [address] [facility] [place] [address] Laboratories-[facility] [address] (ABNORMAL) CBC without Differential (06/06/2019 5:06 [...] Laterality Blood (Blood, 06/06/2019 5:06 AM 06/06/20 19 5:30 Venous) CDT AM CDT Fracisco Mak APRN.N.Nela., M.S.N. LAB BLOOD ADD-ON Performing Organization Address City/State/ZIP Code Phon e Number [facility] - [address] [place], [place] [address] [place] [address] Laboratories-[facility] [address] [facility] Heparin Anti-Xa Assay (06/06/2019 5:06 AM CDT) P athologist Signature Heparin 0.49 IU/mL 06/06/2019 DT Anti-Xa, P 6:01 AM CDT Comment: UFH [...] Laterality Blood (Blood, 06/06/2019 5:06 AM 06/06/20 19 5:30 Venous) CDT AM CDT Alison Romeo APRN, C.N.P., M.S.N. LAB BLOOD NON ADD -ON Performing Organization Address [facility] Phon e Number [facility] - [address] [place], [place] [address] [facility] [place] [address] Laboratories-[facility] 200 [facility] (ABNORMAL) CBC without Differential (06/05/2019 3:51 AM CDT) [facility] Method Time Signature Hemoglobin 8.9 (L) 11.6 [...] M.S.N. LAB BLOOD ADD-ON Performing Organization Address City/[facility] Phon e Number [facility] - [address] [place], [place] [address] [facility] [place] [address] Laboratories-[facility] [address] (ABNORMAL) Basic Metabolic [...] 06/05/2019 DTL Black/ mL/min/BSA 4:54 AM CDT German Comment: ----ADDITIONAL INFORMATION---- Estimated GFR calculated using [...] Organization Address City/State/ZIP Code Phon e Number [facility] - [address] [place], [place] [address] [place] [address] Laboratories-[facility] 200 [facility] Phosphorus Inorganic (06/05/2019 3:51 AM CDT) P athologist Signature Phosphorus 3.7 2.5 - 4.5 06/05/2019 DTL (Inorganic), S mg/dL 4:54 AM CDT Specimen Anatomical Collection Method Collection Time Receive d Time (Source) Location / / Volume Laterality Blood (Blood, 06/05/2019 3:51 AM 06/05/20 19 4:19 Venous) CDT AM CDT Alison Romeo APRN, C.N.P., M.S.N. LAB BLOOD ADD-ON Performing Organization Address City/[facility] Phon e Number [facility] - [address] [place], [place] [address] [place] [address] Laboratories-[address] Magnesium (06/05/2019 3:51 AM CDT) athologist Signature Magnesium, S 2.0 1.7 - 2.3 06/05/2019 DTL mg/dL 4:54 AM CDT Specimen Anatomical Collection Method Collection Time Receive d Time (Source) Location / / Volume Laterality Blood (Blood, 06/05/2019 3:51 AM 06/05/20 19 4:19 Venous) CDT AM CDT Alison Romeo APRN, C.N.P., M.S.N. LAB BLOOD ADD-ON Performing Organization Address City/State/[facility] Phon e Number [facility] - [address] [place], [place] [address] [place] [address] Laboratories-[address] (ABNORMAL) PT (Prothrombin Time) with INR (06/05/2019 [...] 06/05/20 19 4:20 Venous) CDT AM CDT Jakob Rivrea M.D. LAB BLOOD ADD-ON Performing Organization Address City/[facility] Phon e Number [facility] - [address] (ABNORMAL) Calcium, Ionized (06/05/2019 3:50 AM CDT) athologist Signature Calcium, 5.13 4.57 - 5.43 06/05/2019 DT Ionized, S mg/dL 4:58 AM CDT Comment: ----ADDITIONAL INFORMATION---- This test has been modified from the man ufacturer's instructions. Its performance characteri stics were determined by [facility] in a manner co nsistent with CLIA requirements. This test has not bee n cleared or approved by the U.S. Food and Drug Admin istration. pH for Ionized Calcium 7.52 (H) 7.35 - 7.48 06/05/2019 4:58 AM CDT DT Specimen Anatomical Collection Method Collection Time Receive d Time (Source) Location / / Volume Laterality Blood (Blood, 06/05/2019 3:50 AM 06/05/20 19 4:20 Venous) CDT AM CDT Milli Mak APRNNJohan., M.S.N. LAB BLOOD NON ADD -ON Performing Organization Address City/[facility] Phon e Number [facility] - [address] Heparin Anti-Xa Assay (06/05/2019 3:50 AM [...] LAB BLOOD NON ADD-ON Performing Organization Address City/State/[facility] Code Phon e Number [facility] - [address] [place] [address] [address] [facility] [place] [address] Laboratories-[facility] [address] (ABNORMAL) CBC without Differential (06/04/2019 4:22 AM CDT) [facility] gist Method Time Signature Hemoglobin 8.8 (L) 11.6 - 06/04/2019 DHPM 15.0 g/dL 4:48 AM CDT Hematocrit 28.0 (L) 35.5 - 06/04/2019 DHPM 44.9 % 4:48 AM CDT Erythrocytes 2.95 (L) 3.92 - 06/04/2019 DHPM 5.13 4:48 AM CDT x10(12)/L MCV 94.9 78.2 - 06/04/2019 DHPM 97.9 fL 4:48 AM CDT RBC Distrib Width 15.5 12.2 - 06/04/2019 DHPM 16.1 % 4:48 AM CDT Platelet Count 135 (L) 157 - 371 06/04/2019 DHPM x10(9)/L 4:48 AM CDT Leukocytes 6.8 3.4 - 9.6 06/04/2019 DHPM x10(9)/L 4:48 AM CDT Specimen Anatomical Collection Method Collection Time Receive d Time (Source) Location / / Volume Laterality Blood (Blood, 06/04/2019 4:22 AM 06/04/20 19 4:34 Venous) CDT AM CDT Alison Romeo APRN, C.N.P., M.S.N. LAB BLOOD ADD-ON Performing Organization Address City/[facility] Phon e Number [facility] - [address] [place], [place] [address] [place] [address] Laboratories-[facility] 200 [facility] (ABNORMAL) PT (Prothrombin Time) with INR (06/04/2019 4:22 AM CDT) Patholo gist Method Time Signature Prothrombin 19.4 (H) 9.4 [...] M.D. LAB BLOOD ADD-ON Performing Organization Address City/[facility] Phon e Number [facility] - [address] [place], [place] [address] 05 [place] [address] Laboratories-[facility] 200 [facility] Heparin Anti-Xa Assay (06/04/2019 4:22 AM CDT) P athologist Signature Heparin 0.43 IU/mL 06/04/2019 DT Anti-Xa, P 4:49 AM CDT Comment: UFH [...] Organization Address City/State/ZIP Code Phon e Number [facility] - [address] [place], [place] [address] [facility] [place] [place] [address] Laboratories-[facility] [address] [place] Hemodialysis Fistula-Graft Right (06/03/2019 10:45 AM [...] Organization Address City/State/ZIP Code Phon e Number [facility] - [address] [place], [place] [address] [facility] [place] [address] Laboratories-[facility] [address] Phosphorus Inorganic (06/03/2019 9:07 AM CDT) P athologist Signature Phosphorus 2.8 2.5 - 4.5 06/03/2019 DTL (Inorganic), S mg/dL 10:29 AM CDT Specimen Anatomical Collection Method Collection Time Receive d Time (Source) Location / / Volume Laterality Blood 06/03/2019 9:07 AM 9 9:20 CDT AM CDT Farzana Amaya APRN, R.N. LAB BLOOD ADD-ON Performing Organization Address City/[facility] Code Phon e Number [facility] - [address] [place], [place] [address] [facility] [place] [address] Laboratories-[facility] 200 [facility] (ABNORMAL) CBC without Differential (06/03/2019 4:26 AM [...] 06/03/20 19 5:14 Venous) CDT AM CDT Milli Mak APRNN.P., M.S.N. LAB BLOOD ADD-ON Performing Organization Address City/[facility]/ZIP Code Phon e Number [facility] - [address] [place], [place] [address] [facility] [place] [place] [address] Laboratories-[facility] 200 [facility] (ABNORMAL) PT (Prothrombin Time) with INR (06/03/2019 4:26 AM CDT) Patholo gist Method Time Signature Prothrombin 16.8 (H) 9.4 - 12.5 06/03/2019 DTL Time, P sec 5:31 AM CDT INR 1.5 0.9 - 1.1 06/03/2019 DT 5:31 AM CDT Comment: ----ADDITIONAL INFORMATION---- Standard [...] Organization Address City/State/ZIP Code Phon e Number [facility] - [address] [place] [address] 05 [place] [address] Laboratories-[facility] 200 [facility] Heparin Anti-Xa Assay (06/03/2019 4:26 AM CDT) P athologist Signature Heparin 0.37 IU/mL 06/03/2019 [facility] Anti-Xa, P 5:31 AM CDT Comment: UFH [...] Organization Address City/State/ZIP Code Phon e Number [facility] - [address] [place], [place] [address] [facility] [place] [address] Laboratories-[facility] [address] (ABNORMAL) Basic Metabolic Panel (06/03/2019 4:26 AM CDT) P athologist Signature Potassium, S CANCELED mmol/L 06/03/2019 [...] >=60 mL/min/BSA 06/03/2019 5:58 AM CDT DTL [place] Comment: ----ADDITIONAL INFORMATION---- Estimated GFR calculated using [...] 06/03/20 19 5:14 Venous) CDT AM CDT Farzana Amaya APRN, R.N. LAB BLOOD ADD-ON Performing Organization Address [facility] Phon e Number [facility] - [address] [place], [place] [address] [address] [place] [address] [facility] 200 [facility] Heparin Anti-Xa Assay (06/02/2019 1:30 PM CDT) P athologist Signature Heparin 0.50 IU/mL 06/02/2019 DT Anti-Xa, P 2:14 PM CDT Comment: UFH [...] LAB BLOOD NON ADD-ON Performing Organization Address City/[facility] Phon e Number [facility] - [address] [place], [place] [address] [place] [address] Laboratories-[address] (ABNORMAL) CBC without Differential (06/02/2019 4:53 AM CDT) Patholo gist Method Time Signature Hemoglobin 8.3 (L) 11.6 [...] Laterality Blood (Blood, 06/02/2019 4:53 AM 06/02/20 5:06 Venous) CDT AM CDT Fracisco Mak APRN.N.P., M.S.N. LAB BLOOD ADD-ON Performing Organization Address City/[facility] Code Phon e Number [facility] - [address] [place], [place] [address] [facility] [place] [place] [address] Laboratories-[address] (ABNORMAL) PT (Prothrombin Time) with INR (06/02/2019 4:53 AM CDT) [facility] Method Time Signature Prothrombin 16.0 (H) 9.4 [...] M.D. LAB BLOOD ADD-ON Performing Organization Address City/[facility] Code Phon e Number [facility] - [address] Heparin Anti-Xa Assay (06/02/2019 4:53 AM CDT) athologist Signature Heparin 0.53 IU/mL 06/02/2019 [facility] Anti-Xa, P 5:17 AM CDT Comment: UFH [...] CDT Milli Mak APRNNJohan., M.S.N. LAB BLOOD NON ADD -ON Performing Organization Address City/[facility]/ZIP Code Phon e Number [facility] [address] Microscopic Manual (06/01/2019 8:54 PM CDT) athologist Signature Microscopy Normal 06/02/2019 2:03 JR AM CDT RBC <3 <3 /hpf 06/02/2019 2:03 JR AM CDT Specimen Anatomical Collection Method Collection Time Receive d Time (Source) Location / / Volume Laterality Urine 06/01/2019 8:54 PM 9 9:49 CDT PM CDT Jefferson Farfan M.D. LAB URINE ORDERABLES Performing Organization Address City/[facility] Phon e Number [facility] [address] [place] [address] Laboratories-[facility] 200 [facility] Bacterial Culture, Aerobic + Susc, Urine (06/01/2019 [...] Farfan M.D. LAB MICROBIOLOGY - GENERAL O MADHAV Performing Organization Address City/State/ZIP Code Phon e Number [facility] - [address] [place] [address] [place] [address] [place] [address] Laboratories-[address] (ABNORMAL) Urinalysis with Microscopic: Urine, Midstream [...] and its performa nce characteristics determined by [facility] in a manner co nsistent with CLIA requirements. This test has not bee n cleared or approved by the U.S. Food and Drug Admin istration. Glucose 9 0 - 15 mg/dL 06/01/2019 10:41 PM CDT RAMBO A Protein, U 59 (H) <26 mg/dL [...] M.D. LAB URINE ORDERABLES Performing Organization Address [facility] Phon e Number [facility] - [address] [place], [place] [address] [place] [address] Laboratories-[facility] [address] Heparin Anti-Xa Assay (06/01/2019 [...] BLOOD NON ADD -ON Performing Organization Address City/State/[facility] Phon e Number [facility] - [address] [place], [place] [address] [address] [place] [address] [place] [address] 200 [facility] Phosphorus Inorganic (06/01/2019 3:33 AM CDT) P athologist Signature Phosphorus 4.4 2.5 - 4.5 06/01/2019 DTL (Inorganic), S mg/dL 5:06 AM CDT Specimen Anatomical Collection Method Collection Time Receive d Time (Source) Location / / Volume Laterality Blood (Blood, 06/01/2019 3:33 AM 06/01/20 3:54 Venous) CDT AM CDT Alison Romeo APRN, C.N.P., M.S.N. LAB BLOOD ADD-ON Performing Organization Address City/[facility] Phon e Number [facility] - [address] [place], [place] [address] [place] [address] Laboratories-[address] Magnesium (06/01/2019 3:33 AM CDT) athologist Signature Magnesium, S 2.0 1.7 - 2.3 06/01/2019 DTL mg/dL 5:06 AM CDT Specimen Anatomical Collection Method Collection Time Receive d Time (Source) Location / / Volume Laterality Blood (Blood, 06/01/2019 3:33 AM 06/01/20 3:54 Venous) CDT AM CDT Milli Mak APRNNJohan., M.S.N. LAB BLOOD ADD-ON Performing Organization Address City/State/[facility] Phon e Number [facility] - [address] [place], [place] [address] [place], [place] [address] [place] [address] (ABNORMAL) BMP (Basic Metabolic Panel) (06/01/2019 3:33 [...] 06/01/2019 DTL Black/ mL/min/BSA 5:06 AM CDT [place] Comment: ----ADDITIONAL INFORMATION---- Estimated GFR calculated using [...] 3:54 Venous) CDT AM CDT Alison Romeo APRN C.N.Nela., M.S.N. LAB BLOOD ADD-ON Performing Organization Address City/State/ZIP Code Phon e Number [facility] - [address] [place], [place] [address] [facility] [place] [address] Laboratories-[facility] [address] (ABNORMAL) CBC without Differential (06/01/2019 3:33 AM CDT) [facility] gist Method Time Signature Hemoglobin 7.9 (L) 11.6 [...] AM 06/01/20 3:54 Venous) CDT AM CDT Fracisco Mak APRN.N.P., M.S.N. LAB BLOOD ADD-ON Performing Organization Address City/[facility] Code Phon e Number [facility] - [address] [place], [place] [address] [facility] [place] [address] Laboratories-[facility] 200 [facility] (ABNORMAL) PT (Prothrombin Time) with INR (06/01/2019 3:33 AM CDT) [facility] Method Time Signature Prothrombin 15.7 (H) 9.4 - 12.5 06/01/2019 DTL Time, P sec 4:30 AM CDT INR 1.4 0.9 - 1.1 06/01/2019 DTL 4:30 AM CDT Comment: ----ADDITIONAL INFORMATION---- Standard [...] Organization Address City/State/ZIP Code Phon e Number [facility] - [address] [place], [place] [address] [address] [place] [address] [facility] 200 [facility] Heparin Anti-Xa Assay (05/31/2019 9:14 PM CDT) athologist Signature Heparin 0.40 IU/mL 05/31/2019 DT [...] Laterality Blood (Blood, 05/31/2019 9:14 PM 05/31/20 9:30 Venous) CDT PM CDT Zakiya Pope M.D., M.S. LAB BLOOD NON ADD-ON Performing Organization Address City/State/[facility] Phon e Number [facility] - [address] [place], [place] [address] 05 [place] [address] [facility] 200 [facility] Heparin Anti-Xa Assay (05/31/2019 1:05 PM CDT) athologist Signature Heparin 0.81 IU/mL 05/31/2019 DT Anti-Xa, P 1:45 PM CDT Comment: UFH [...] Laterality Blood (Blood, 05/31/2019 1:05 PM 05/31/20 19 1:24 Venous) CDT PM CDT Jakob Rivera M.D. LAB BLOOD NON ADD-ON Performing Organization Address City/State/ZIP Code Phon e Number [facility] - [address] [place], [place] [address] [facility] [place] [place] [address] Laboratories-[facility] [address] IR FISTULAGRAM (05/31/2019 11:46 AM CDT) Anatomical Region Laterality Modality Upper Extremity, Vascular Interventional RST LOS N/A X-Ray Angiography Specimen (Source) Anatomical Location Collection Method / Collectio n Time Received Time / Laterality Volume Narrative 05/31/2019 12:29 PM CDT Performed by surgeon - see Op Note for marsha tirado Guillermo Mcmanus IMG IR PROCEDURES Heparin Anti-Xa Assay (05/31/2019 5:45 AM CDT) P athologist Signature Heparin 0.50 IU/mL 05/31/2019 DT Anti-Xa, P 6:30 AM CDT Comment: UFH [...] BLOOD NON ADD -ON Performing Organization Address City/[facility]/ZIP Code Phon e Number [facility] - [address] 200 [facility] Phosphorus Inorganic (05/31/2019 5:45 AM CDT) P athologist Signature Phosphorus 4.4 2.5 - 4.5 05/31/2019 DTL (Inorganic), S mg/dL 8:35 AM CDT Specimen Anatomical Collection Method Collection Time Receive d Time (Source) Location / / Volume Laterality Blood (Blood, 05/31/2019 5:45 AM 05/31/20 19 6:02 Venous) CDT AM CDT Alison Romeo APRN, C.N.P., M.S.N. LAB BLOOD ADD-ON Performing Organization Address City/[facility]/ZIP Code Phon e Number [facility] - [address] Magnesium (05/31/2019 5:45 AM CDT) P athologist Signature Magnesium, S 1.7 1.7 - 2.3 05/31/2019 DTL mg/dL 8:35 AM CDT Specimen Anatomical Collection Method Collection Time Receive d Time (Source) Location / / Volume Laterality Blood (Blood, 05/31/2019 5:45 AM 05/31/20 19 6:02 Venous) CDT AM CDT Fracisco Mak APRN.NJohan., M.S.N. LAB BLOOD ADD-ON Performing Organization Address City/[facility]/ZIP Code Phon e Number [facility] - [address] (ABNORMAL) BMP (Basic Metabolic Panel) (05/31/2019 [...] 05/31/2019 DTL Black/ mL/min/BSA 8:35 AM CDT [place] Comment: ----ADDITIONAL INFORMATION---- Estimated GFR calculated using [...] 6:02 Venous) CDT AM CDT Alison Romeo APRN C.N.P., M.S.N. LAB BLOOD ADD-ON Performing Organization Address City/State/ZIP Code Phon e Number [facility] - [address] [place], [place] [address] [facility] [place] [address] Laboratories-[facility] [address] (ABNORMAL) APTT (Activated Partial Thromboplastin Time) (05/31/2019 5:45 AM CDT) athologist Signature Activated 60 (H) 25 - 37 05/31/2019 DTL Partial sec 6:32 AM CDT Thrombopl Time, P Specimen Anatomical Collection Method Collection Time Receive d Time (Source) Location / / Volume Laterality Blood (Blood, 05/31/2019 5:45 AM 05/31/20 19 5:59 Venous) CDT AM CDT Tre Bear M.D. LAB BLOOD ADD-ON Performing Organization Address City/[facility] Phon e Number [facility] - [address] [place], [place] [address] [facility] [place] [address] Laboratories-[address] (ABNORMAL) PT (Prothrombin Time) with INR (05/31/2019 5:45 AM CDT) [facility] Method Time Signature Prothrombin 17.0 (H) 9.4 [...] M.D. LAB BLOOD ADD-ON Performing Organization Address City/[facility] Code Phon e Number [facility] - [address] [place] [address] [address] [facility] [place] [place] [address] Laboratories-[address] (ABNORMAL) CBC without Differential (05/31/2019 5:45 AM CDT) [facility] Method Time Signature Hemoglobin 8.7 (L) 11.6 [...] M.D. LAB BLOOD ADD-ON Performing Organization Address City/[facility] Phon e Number [facility] - [address] [place] [address] 05 [place] [address] [facility] 200 [facility] Heparin Anti-Xa Assay (05/30/2019 11:28 PM CDT) P athologist Signature Heparin 0.64 IU/mL 05/31/2019 DTL Anti-Xa, P 12:03 AM CDT Comment: UFH [...] LAB BLOOD NON ADD-ON Performing Organization Address City/State/[facility] Phon e Number [facility] - [address] DTL [address] APTT (Activated Partial Thromboplastin Time) (05/30/2019 3:11 PM CDT) P athologist Signature Activated 26 25 - 37 sec 05/30/2019 [facility] Partial 3:23 PM CDT Thrombopl Time, P Specimen Anatomical Collection Method Collection Time Receive d Time (Source) Location / / Volume Laterality Blood (Blood, 05/30/2019 3:11 PM 05/30/20 19 3:14 Venous) CDT PM CDT Sal Rushing M.D. LAB BLOOD ADD-ON Performing Organization Address City/[facility] Code Phon e Number [facility] - [address] (ABNORMAL) PT (Prothrombin Time) with INR (05/30/2019 3:11 PM CDT) Patholo gist Method Time Signature Prothrombin 17.4 (H) 9.4 - 12.5 05/30/2019 [facility] Time, P sec 3:21 PM CDT INR 1.6 0.9 - 1.1 05/30/2019 [facility] 3:21 PM CDT Comment: ----ADDITIONAL INFORMATION---- Standard intensity warfarin therapeutic range: 2.0 to 3.0 ?? High intensity warfarin therapeutic rang e: 2.5 to 3.5 Specimen Anatomical Collection Method Collection Time Receive d Time (Source) Location / / Volume Laterality Blood (Blood, 05/30/2019 3:11 PM 05/30/20 19 3:14 Venous) CDT PM CDT Sal Rushing M.D. LAB BLOOD ADD-ON Performing Organization Address City/[facility]/ZIP Code Phon e Number [facility] - [address] (ABNORMAL) BMP (Basic Metabolic Panel) (05/30/2019 3:11 [...] eGFR-Black/Afri 15 (L) >=60 05/30/2019 [facility] can [place] mL/min/BSA 3:30 PM CDT Comment: ----ADDITIONAL INFORMATION---- Estimated GFR calculated using the 2009 CKD_EPI creatinine equation. eGFR Non-Black/ <15 (L) >=60 mL/min/BSA 05/30/2019 3:30 PM CDT [facility] [place] Comment: ----ADDITIONAL INFORMATION---- Estimated GFR calculated using [...] Organization Address City/State/ZIP Code Phon e Number [facility] - [address] [place], [place] [address] [place] [address] Laboratories-[facility] [address] (ABNORMAL) CBC with Differential (05/30/2019 3:11 PM CDT) [facility] Method Time Signature Hemoglobin 9.1 (L) [...] Organization Address City/State/ZIP Code Phon e Number [facility] - [address] [place] [address] 05 [place] [address] Laboratories-[facility] [address] [place] Hemodialysis Fistula-Graft Right (05/30/2019 2:25 PM [...] with the referring physician, Dr. Rushing, pager [phone], at 1445 hours today. Narrative 05/30/2019 2:50 [...] with the referring physician, Dr. Rushing, pager [phone], at 1445 hours today. Sal Rushing M.D. 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 Administered Medications Inactive Administered Medications - up to 3 most recent administrations Medication Order MAR Action Action Date Dose Rate Site acetaminophen tablet 1,000 mg Given 06/06/2019 12:31 PM CDT 1,00 0 mg (TYLENOL) 1,000 mg, oral, 4 times daily, First dose on 05/31/19 at 1700 Given 06/05/2019 8:15 PM CDT 1,000 mg Given 06/05/2019 5:03 PM CDT 1,000 mg calcium carbonate chewable tablet Given 06/06/2019 8:1 [...] 7:59 AM CDT 400 mg of calcium cellulose, oxidized 1 X 2 pad Given 05/31/2019 11:17 AM CDT 1 each Right Arm (SURGICEL) As needed, Starting on 05/31/19 at 1117, Intra-Op gabapentin capsule 200 mg (NEURONTIN) Given 06/06/2019 12:31 PM CDT 200 mg 200 mg, oral, 2 times daily, First dose (after last modification) on Sun05/30/19 at 2130 Given 06/05/2019 8:15 PM CDT 200 mg Given 06/05/2019 8:00 AM CDT 200 mg gentamicin-polymixin B 20 mg-500,000 Given 05/31/2019 9:40 AM CD T 800 mL Other Units irrigation (DABS_MODIFIED) As needed, Starting on 05/31/19 at 0940, Intra-Op heparin (porcine) 5,000 Units in NaCl 0.9% Given 05/31/2019 9:40 AM CDT 100 mL 500 mL flush solution As needed, Starting on 05/31/19 at 1134, Intra-Op iodixanol (VISIPAQUE) 160 mg/mL in Given 05/31/2019 11:51 AM CDT 20 mL Right Arm NaCl 0.9% injection 300 mL, intravenous, Once in surgery, OR use only, Starting on 05/31/19 at 1150, For 1 dose, Intra-Op lidocaine 10 mg/mL (1 %) injection Given 05/31/2019 11:30 AM CDT 10 mL Right Arm (XYLOCAINE) As needed, Starting on 05/31/19 at 1130, Intra-Op multivitamin renal failure 1 tablet Given 06/05/2019 5:03 PM CDT 1 tablet (DIALYVITE) 1 tablet, oral, Every evening, First dose on 06/01/19 at 1800, give after dialysis on dialysis [...] Given 06/05/2019 8:00 AM CDT 250 mg naloxone injection 0.2 mg (NARCAN) 0.2 [...] CDT 800 mg sodium chloride 0.9 % injection 10 mL [...] Given 06/05/2019 8:00 AM CDT 2 mg thrombin (recombinant) Given 05/31/2019 11:17 AM CDT 1 applicati on Right Arm topical solution (RECOTHROM) As needed, Starting on 05/31/19 at 1117, Intra-Op warfarin management (COUMADIN) oral, Daily, First dose (after last modification) on S un 06/01/19 at 1700, Pharmacist to Dose: Yes, Target INR: 2.5 - 3.5, Comorb idities that constitute Warfarin Sensitivity: No known comorbidities that reyes ge warfarin sensitivity, Indication: Other, Explanatory Comment: prevention thrombosis arterio-venous graft, Therapy type: Resume Warfarin therapy documented in this encounter Active and Recently Administered Medications Times are shown in CDT. Scheduled Medication Order 06/04/2019 06/05/2019 06/06/2019 acetaminophen tablet 1,000 mg (TYLENOL) 9344 (Given - Provider: Huber Ya R.N.)6932 (Given - Provider: Huber Ya R.N.)9022 (Given - Provider: Huber Ya R.N.)9804 (Given - Provider: Janet Landa RDaviNDavi) 9335 (Given - Provider: Stephanie Alicea R.NDavi)1200 (Given - Provider: Stephanie Alicea R.N.)1703 (Given - Provider: Janet Guerin R.N.)2014 (Given - Provider: Destiny Moon R.N.) 0857 (Not Given - Provider: Gonzalo castillo R.N. - Reason: Patient/family refused - Comment: pt did not want)1231 (Given - Provider: Virgilio Wynne R.N.) 1,000 mg, oral, 4 times daily, First dose on 05/31/19 at 170 0 calcium carbonate chewable tablet 400 mg of calcium (T UMS) 0738 (Given - Provider: Huber Ya R.N.)1918 (Given - Provider: Janet Landa R.N. - Comment: pt eating now) 0759 (Given - Provider: Stephanie bella R.N.)1703 (Given - Provider: Janet Guerin R.N.) 0813 (Given - Provider: Virgilio Wynne R.N.) 400 mg of calcium, oral, 2 times daily w ith meals, First dose (after last modification) on 06/01/19 at 1700, Doses listed are in mg of elemental calcium. Take with food. 500 mg calcium carbonate contains 200 mg of elemental calcium. gabapentin capsule 200 mg (NEURONTIN) 1233 (Given - Pr ovider: Huber Ya R.N.)2128 (Given - Provider: Janet Landa R.N.) 0800 (Given - Provider: Stephanie Alicea R.N.)2014 (Given - Provider: Destiny Moon R.N.) 1231 (Given - Provider: Virgilio Wynne R.N.) 200 mg, oral, 2 times daily, First dose (after last modification) on Sun05/30/19 at 2130 multivitamin renal failure 1 tablet (DIALYVITE) 1755 ( Given - Provider: Huber Ya R.N.) 1703 (Given - Provider: Janet Guerin R.N.) 1 tablet, oral, Every evening, First dos e on 06/01/19 at 1800, give after dialysis on dialysis days mycophenolate capsule 250 mg (CELLCEPT) 1233 (Given - Provider: Huber Ya R.N.)2128 (Given - Provider: Janet Landa R.N.) 0800 [...] Ya R.N.) 0800 (Medication Removed - Provider: Stephanie Alicea R.N.)0803 (Medication Applied - Provider: Stephanie [...] 5 mg, oral, Daily, First dose on Sun05/31/19 at 1415 rosuvastatin tablet 5 mg (CRESTOR) 2128 (Given - Provi kristi: Janet Landa R.N.) 2014 (Given - Provider: Destiny Moon R.N.) 5 mg, oral, Daily at bedtime, First dose (after last modification) on Sun05/31/19 at 2100 sennosides-docusate sodium 8.6-50 mg per [...] 2 times daily, First dos e on 06/01/19 at 0900, Initiate ONLY when taking oral food and fluids. Do not give if patient has diarrhea or ostomy. sevelamer tablet 800 mg (RENVELA) 1232 (Canceled Entry - Provider: Huber Ya R.N.)1918 (Given - Provider: Janet Landa R.N. - Comment: pt eating now) 1703 (Given - Provider: Janet Guerin R.N.) 800 mg, oral, Daily, First dose (after l ast modification) on Sun05/30/19 at 2130, For 49 days sodium chloride 0.9 % injection 3 mL 1241 (Not Given - Provider: Huber Ya R.N. - Reason: Contraindicated)2130 (Not Given - Provider: Janet Landa R.N. - Reason: Other - Comment: heparin running through peripheral IV) 0806 (Not Given - Provider: Stephanie Alicea R.N. [...] er: Huber Ya R.N.)2128 (Given - Provider: Janet Landa R.N.) 0800 (Given - Provider: Stephanie Alicea R.N.)2100 (Given - Provider: Destiny Moon RDaviNDavi) 1231 (Given - Provider: Virgilio Wynne R.N.) 2 mg, oral, 2 times daily, First [...] (COMPLETED) 1703 (Given - Provider: Janet Guerin R.N.) 7.5 mg, oral, Once, On Elizabeth 06/05/19 at 1700, For 1 dose Continuous Medication Order 06/04/2019 06/05/2019 06/06/2019 heparin (porcine) 100 Units/mL in D5W 250 mL infusion (CANCELED) 0505 (Handoff - Provider: Raiza Johnson R.N.)1551 (New Bag - Provider: Joselin Almanza RRalf)1920 (Handoff - Provider: Janet Landa R.N.)2300 (Handoff - Provider: Raiza Johnson R.N.) 0445 (Handoff - Provider: Carmen Chandler R.N.)0800 [...] 1214 (Gi maeve - Provider: Rubina Guerrero R.N. - Comment: flush) 100 mL, intravenous, As needed, line car e, Starting on Sun06/04/19 at 0826, Dialysis, For anticoagulation line to maintain patency of dialysis circuit. sodium chloride 0.9 % flush 250 mL (CANCELED) 1214 (Gi maeve - Provider: Rubina Guerrero R.N.) 250 mL, intravenous, As needed, line [...]
--- OUTSIDE RECORDS SUMMARY | 2022-05-25 13:19 | XMS_ITS | Encounter Summary ---
:1960 Author Organization [facility] Address [address] [place] [address] Care Team Providers Name Role Phone Unavailable Primary Care Provider Unavailable Reason for Visit Reason Comments Post-op Outpatient (Routine) - Closed Specialty Diagnoses / Procedures Referred By Contact Refer red To Contact Vascular Medicine Diagnoses Wound Postoperative Exam [facility] Lola Perkins APRN, C.N.P., M.S. [address] [place] [address] Referral ID Status Reason Start Date Expiration Date Visits Requ ested Visits Authorized [id number] Closed 05/09/2019 05/08/2020 1 1 Encounter Details Date Type Department Care Team Description 05/15/2019 Office Visit Division of Vascular Jonh Marques Postoperative and Endovascular Lola Perkins APRN, Exam Surgery in [facility] C.N.P., M. S. [place] [address] [place] [address] [address] [place] [phone] Social History Tobacco Use Types Packs/Day Years [...] How often do you attend moravian or jehovah's witness 1 to 4 times [...] documented as of this encounter Progress Notes Lola Marques, CHRISTOPHER, C.N.P. - 05/15/2019 11:30 AM CDT Shabnam Wray : 1960 Visit Date: 05/15/19 SUBJECTIVE Shabnam Wray is a 58 y.o. female status post procedure noted above who presents to the clinic today for her routine post-operative follow up. She denies fever, chills. She reports incisional painis present, but is primarily related to when it comes in contact with something. She denies drainagefrom her surgical sites, stating that it has been dry for several days. Swelling is improved. OBJECTIVE VITAL SIGNS There were no vitals filed for this visit. PHYSICAL EXAM Extremities: Warm, well perfused. Right hand is without numbness, tingling. . Incisions: Clean, dry, and intact, without erythema or drainage. Ecchymosis present. Mild swelling in the avelina incisional area. VASCULAR EXAM: Pulses Exam: Radial pulse palpable, +2. Bruit present. ASSESSMENT / PLAN Recovering as expected.Incisions are healing well. She will continue her cefadroxil until Sunday, and then discontinue it. I will contact her by phone on Sunday. She was provided with cut to fit, loose flexi net to decrease pain from friction on the incision. The dry gauze dressings will continue as needed and at least once daily until the incisions have completely healed. Her INR yesterday was 1.8.Her PCP has been contacted and it was recommended that she increase her warfarin to 4 mg, with an INR goal of 2.0-3.0. Patient instructed to follow-up with PCP for ongoing medical care and medication adjustments and refills. DIAGNOSIS: #1 Wound Postoperative Exam Answers for HPI/ROS submitted by the patient on 05/15/2019 Fatigue: Yes No eye issues: Yes No ENT issues: Yes No heart issues: Yes Coughing up mucus (phlegm): Yes No GI issues: Yes No muscle/bone issues: Yes No skin issues: Yes Numbness or shooting pain in hands, arms, legs or feet: Yes Weakness in arms and/or legs: Yes Feeling nervous, anxious or on edge: Yes Bruises/bleeds easily: Yes No urinary/reproductive issues: Yes documented in this encounter Plan of Treatment Upcoming Encounters Date Type Specialty Care Team Description 06/01/2022 Telemedicine Pharmacy An Nicholas APRN, C.N.P., D.N.P., M.S.N. [address] [place] [address] [phone] (Wo rk) 07/31/2022 Lab Laboratory Medicine Tony Rubalcava M. B., Yvonne.Maurice, M.D. [address] [place] [address] [phone] (Wo rk) 07/31/2022 Lab Laboratory Medicine Tony Rubalcava M. B., Sydnie, Mukund [address] [place] [address] [phone] (Wo rk) 07/31/2022 Office Visit Transplant Tony Rubalcava M.B., Sydnie, Mukund [address] [place] [address] [phone] (Wo rk) 07/31/2022 Appointment Radiology Tony Rubalcava M.B., Sydnie, Mukund [address] [place] [address] [phone] (Wo rk) 08/01/2022 Office Visit Transplant Tony Rubalcava M.B., Sydnie, Mukund [address] [place] [address] [phone] (Wo rk) 08/01/2022 Clinical Support Transplant Tony Rubalcava M.B., Sydnie, Mukund [address] [place] [address] [phone] (Wo rk) documented as of this encounter Visit Diagnoses Diagnosis Wound Postoperative Exam documented in this encounter Additional Health Concerns Assessment Noted Time PHQ-9 Depression Total Score: 4 01/30/2019 12:13 PM CD T documented as of this encounter
--- OUTSIDE RECORDS SUMMARY | 2022-05-25 13:19 | XMS_ITS | Encounter Summary ---
:1960 Author Organization [facility] Address [address] [place] [address] Care Team Providers Name Role Phone Unavailable Primary Care Provider Unavailable Encounter Details Date Type Department Care Team Description 05/16/2019 Clinical Communication [facility], FACILITIES MECHANICAL DESIGN ENGINEER, C.N.P., Transplantation and D.N.P. Clinical Regeneration in [address] [place] [address] [place] [phone] [place] [address] [phone] Social History Tobacco Use Types Packs/Day Years [...] How often do you attend confucianist or christian 1 to 4 times per [...] Nicholas APRN C.N.P., D.N.P., M.S.N. [address] [place] [address] [phone] (Wo rk) 07/31/2022 Lab Laboratory Medicine Tony Rubalcava M. B., Sydnie, MDebra [address] [place] [address] [phone] (Wo rk) 07/31/2022 Lab Laboratory Medicine Tony Rubalcava M. B., ChBurke, MDebra [address] [place] [address] [phone] (Wo rk) 07/31/2022 Office Visit Transplant Tony Rubalcava M.B., Sydnie, MDebra [address] [place] [address] [phone] (Wo rk) 07/31/2022 Appointment Radiology Tony Rubalcava M.B., ChBurkeMukund [address] [place] [address], [place] [phone] (Wo rk) 08/01/2022 Office Visit Transplant Tony Rubalcava M.B., Mukund [place] 200 [place], [place] [phone] (Wo rk) 08/01/2022 Clinical Support Transplant Tony Rubalcava M.B., Mukund [place] 200 [place], [place] [phone] (Wo rk) documented as of this encounter Results HLA Class II SAB Antibody Screen (07/07/2019 5:30 AM MUSEUM SERVICE SCHEDULER) [facility] Method Time Signature Class II SAB Positive Not Applicable 07/10/2019 [facility] Overall 9:06 AM MUSEUM SERVICE SCHEDULER Result Class II SAB 37 07/10/2019 [facility] cPRA 9:06 AM MUSEUM SERVICE SCHEDULER Comment: ----ADDITIONAL INFORMATION---- This PRA is a [facility] calculated PRA. PRA is based on the antigen frequency of the Tissue Typing patient a nd donor population. ??PRA reflects all antibodie s with a normalized value (MFI) above 300. SAB DRB1 Specificity NONE 07/10/2019 9:06 AM MUSEUM SERVICE SCHEDULER [facility] SAB [id number] Specificity NONE 07/10/2019 9:06 A M MUSEUM SERVICE SCHEDULER [facility] SAB DQB1 Specificity see below 07/10/2019 9:06 AM MUSEUM SERVICE SCHEDULER [facility] Comment: 2[88749], 2[642] Format: Serologic equivalent/abbreviated specificity [Normalized Value] shown in decreasing o rder. Note: A serologic equivalent/abbreviated specifi city displayed multiple times could indicate different alleles. SAB DPB1 Specificity NONE 07/10/2019 9:06 AM MUSEUM SERVICE SCHEDULER [facility] Comment: ----ADDITIONAL INFORMATION---- Method: Luminex Specimen Anatomical Collection Method Collection Time Receive d Time (Source) Location / / Volume Laterality Blood (Blood, 07/07/2019 5:30 AM 07/08/20 19 2:38 Venous) MUSEUM SERVICE SCHEDULER PM MUSEUM SERVICE SCHEDULER Resulting Agency Comment Mailed In Specimen Milli Jain APRNNDaviPDavi, D.N.P. LAB HLA ORDERABLE S Performing Organization Address City/State/ZIP Code Phon e Number [facility] - 200 [place], [place] [address] [facility] DBB8 [place] [address] [facility] [address] [facility] HLA Class I SAB Antibody Screen (07/07/2019 5:30 AM MUSEUM SERVICE SCHEDULER) [facility] Method Time Signature Class I SAB Positive Not Applicable 07/10/2019 [facility] Overall 9:16 AM MUSEUM SERVICE SCHEDULER Result Class I SAB 84 07/10/2019 [facility] cPRA 9:16 AM MUSEUM SERVICE SCHEDULER Comment: ----ADDITIONAL INFORMATION---- This PRA is a [facility]iss [facility]ing [facility] calculated PRA. PRA is based on the antigen frequency of the Tissue Typing patient a nd donor population. ??PRA reflects all antibodie s with a normalized value (MFI) above 300. SAB A Specificity see below 07/10/2019 9:16 AM MUSEUM SERVICE SCHEDULER [facility] Comment: 31[4112], 32[3346], 30[2453], 30[2013], 23[1791], 25[1686], 24[1581], 24[1383] Format: Serologic equivalent/abbreviated specificity [Normalized Value] shown in decreasing o rder. Note: A serologic equivalent/abbreviated specifi city displayed multiple times could indicate different alleles. SAB B Specificity see below 07/10/2019 9:16 AM MUSEUM SERVICE SCHEDULER [facility] Comment: 51[8201], 51[5274], 77[3817], 75[3797], 78[3776], 49[3586], 52[3485], 38[2836], 59[2689], 53[2492], 63[2426], 57[2023], 58[2005], 57[1943], 71[1142], 75[1065], 27[708], 13[658], 37[581], 44[535], 44[471], 35[380] Format: Serologic equivalent/abbreviated specificity [Normalized Value] shown in decreasing o rder. Note: A serologic equivalent/abbreviated specifi city displayed multiple times could indicate different alleles. SAB C Specificity NONE 07/10/2019 9:16 AM MUSEUM SERVICE SCHEDULER [facility] Comment: ----ADDITIONAL INFORMATION---- Method: Luminex Specimen Anatomical Collection Method Collection Time Receive d Time (Source) Location / / Volume Laterality Blood (Blood, 07/07/2019 5:30 AM 07/08/20 19 2:38 Venous) MUSEUM SERVICE SCHEDULER PM MUSEUM SERVICE SCHEDULER Resulting Agency Comment Mailed In Specimen Fracisco Jain APRN.N.P., D.N.P. LAB HLA ORDERABLE S Performing Organization Address City/[facility] Code Phon e Number [facility] - [address] [place], [place] [address] [facility] [place] DBB8 [place] [address] [facility] [address] (ABNORMAL) Tacrolimus, B (05/26/2019 5:30 AM CDT) athologist Signature Tacrolimus, B 3.4 (L) 5.0-15.0 05/28/2019 [facility] (Trough) 2:09 PM CDT ng/mL Comment: [...] performa nce characteristics determined by [facility] in a manner consistent with CLIA requirements. This test has not been cleared or approved by the [place] d and Drug Administration. Specimen Anatomical Collection Method Collection Time Receive d Time (Source) Location / / Volume Laterality Blood (Blood, 05/26/2019 5:30 AM 05/28/20 19 Venous) CDT 10:02 AM CDT Resulting Agency Comment Mailed In Specimen Fracisco Jain APRN.N.P., D.N.P. LAB BLOOD NON ADD -ON Performing Organization Address City/[facility] Phon e Number [facility] [address] [place], [place] [address] [facility] [place] [address] Laboratory Medicine and Pathology [address] [place] documented in this encounter Visit Diagnoses Diagnosis Transplant Renal (HCC) - Primary documented in this encounter Additional Health Concerns Assessment Noted Time PHQ-9 Depression Total Score: 4 01/30/2019 12:13 PM CD T documented as of this encounter
--- OUTSIDE RECORDS SUMMARY | 2022-05-25 13:19 | XMS_ITS | Encounter Summary ---
:1960 Author Organization [facility] Address [address] [place] [address] Care Team Providers Name Role Phone Unavailable Primary Care Provider Unavailable Encounter Details Date Type Department Care Team Description 05/22/2019 Hospital Encounter Department of [place] Tra nsplant Renal Laboratory Medicine SUPERINTENDENT [place], C.N.P., (HCC) and Pathology, D.N.[place], in [address] [place] [phone] [place] [address] [place], [place] (Work) [phone] Social History Tobacco Use Types Packs/Day Years [...] How often do you attend congregation or mu-ism 1 to 4 times per [...] 1 tablet by 0 06/13/2017 05/31/20 19 86-dbpdh-K-biot-zinc mouth daily. (DIALYVITE) [phone] wx-ey-elk-mg tablet calcium carbonate Chew 2 tablets 2 [...] An Nicholas APRN, C.NDoc, WhitneyN.P., M.S.N. [address] [place] [address] [phone] (Wo rk) 07/31/2022 Lab Laboratory Medicine Tony Rubalcava M. B., ChBurke, MDebra [address] [place] [address] [phone] (Nicolas rk) 07/31/2022 Lab Laboratory Medicine Tony Rubalcava M. B., ChBurke, MDebra [address] [place] [address] [phone] (Nicolas wen) 07/31/2022 Office Visit Transplant Tony Rubalcava M.B., ChBurke, MDaviDDavi [address] [place] [address] [phone] (Nicolas wen) 07/31/2022 Appointment Radiology Tony Rubalcava M.B., ChBurke, MDebra [address] [place] [address] [phone] (Nicolas wen) 08/01/2022 Office Visit Transplant Tony Rubalcava M.B., ChDaviBDavi, MDaviD. [address] [place] [address] [phone] (Nicolas wen) 08/01/2022 Clinical Support Transplant Tony Rubalcava M.B., ChBurke, M.D. [address] [place] [address] [phone] (Nicolas wen) documented as of this encounter Procedures Procedure Name Priority Date/Time Associated Diagnosis Comme nts HLA CLASS II SAB Routine 07/07/2019 5:30 AM Transplant Renal R esults for this ANTIBODY SCREEN [facility] (HCC) procedure ar e in the results section. HLA CLASS I SAB Routine 07/07/2019 5:30 AM Transplant Renal Re sults for this ANTIBODY SCREEN [facility] (HCC) procedure ar e in the results section. documented in this encounter Results HLA Class II SAB Antibody Screen (07/07/2019 5:30 AM [facility]) [facility] Method Time Signature Class II SAB Positive Not Applicable 07/10/2019 [facility] Overall 9:06 AM [facility] Result Class II SAB 37 07/10/2019 [facility] cPRA 9:06 AM [facility] Comment: ----ADDITIONAL INFORMATION---- This PRA is a [facility] ue Typing Laboratory calculated PRA. PRA is based on the antigen frequency of the Tissue Typing patient a nd donor population. ??PRA reflects all antibodie s with a normalized value (MFI) above 300. SAB DRB1 Specificity NONE 07/10/2019 9:06 AM [facility] SAB [id number] Specificity NONE 07/10/2019 9:06 A M [facility] SAB DQB1 Specificity see below 07/10/2019 9:06 AM [facility] Comment: 2[62826], 2[701] Format: Serologic equivalent/abbreviated specificity [Normalized Value] shown in decreasing o rder. Note: A serologic equivalent/abbreviated specifi city displayed multiple times could indicate different alleles. SAB DPB1 Specificity NONE 07/10/2019 9:06 AM [facility] Comment: ----ADDITIONAL INFORMATION---- Method: Luminex Specimen Anatomical Collection Method Collection Time Receive d Time (Source) Location / / Volume Laterality Blood (Blood, 07/07/2019 5:30 AM 07/08/20 19 2:38 Venous) [facility] PM [facility] Resulting Agency Comment Mailed In Specimen Alexa Adan APRN, C.N.P., D.N.P. LAB HLA ORDERABLE S Performing Organization Address City/State/ZIP Code Phon e Number [facility] - [address] [place], [place] [address] [facility] [place] [place] [address] [facility] [address] HLA Class I SAB Antibody Screen (07/07/2019 5:30 AM [facility]) [facility] Method Time Signature Class I SAB Positive Not Applicable 07/10/2019 [facility] Overall 9:16 AM [facility] Result Class I SAB 84 07/10/2019 [facility] cPRA 9:16 AM [facility] Comment: ----ADDITIONAL INFORMATION---- This PRA is a [facility] Tiss ue Typing Laboratory calculated PRA. PRA is based on the antigen frequency of the Tissue Typing patient a nd donor population. ??PRA reflects all antibodie s with a normalized value (MFI) above 300. SAB A Specificity see below 07/10/2019 9:16 AM [facility] Comment: 31[4112], 32[3346], 30[2453], 30[2013], 23[1791], 25[1686], 24[1581], 24[1383] Format: Serologic equivalent/abbreviated specificity [Normalized Value] shown in decreasing o rder. Note: A serologic equivalent/abbreviated specifi city displayed multiple times could indicate different alleles. SAB B Specificity see below 07/10/2019 9:16 AM [facility] Comment: 51[8201], 51[5274], 77[3817], 75[3797], 78[3776], 49[3586], 52[3485], 38[2836], 59[2689], 53[2492], 63[2426], 57[2023], 58[2005], 57[1943], 71[1142], 75[1065], 27[708], 13[658], 37[581], 44[535], 44[471], 35[380] Format: Serologic equivalent/abbreviated specificity [Normalized Value] shown in decreasing o rder. Note: A serologic equivalent/abbreviated specifi city displayed multiple times could indicate different alleles. SAB C Specificity NONE 07/10/2019 9:16 AM [facility] Comment: ----ADDITIONAL INFORMATION---- Method: Luminex Specimen Anatomical Collection Method Collection Time Receive d Time (Source) Location / / Volume Laterality Blood (Blood, 07/07/2019 5:30 AM 07/08/20 19 2:38 Venous) [facility] PM [facility] Resulting Agency Comment Mailed In Specimen Alexa Adan APRN, C.N.P., [place]. LAB HLA ORDERABLE S Performing Organization Address City/State/ZIP Code Phon e Number [facility] - [address] [place], [place] [address] [facility] [address]BB[address] [place] [address] [facility] [address] documented in this encounter Visit Diagnoses Diagnosis Transplant Renal (HCC) documented in this encounter Additional Health Concerns Assessment Noted Time PHQ-9 Depression Total Score: 4 01/30/2019 12:13 PM CD T documented as of this encounter
--- OUTSIDE RECORDS SUMMARY | 2022-05-25 13:19 | XMS_ITS | Encounter Summary ---
:1960 Author Organization [facility] Address [address] [place] [address] Care Team Providers Name Role Phone Unavailable Primary Care Provider Unavailable Reason for Visit Reason Comments Med Refill Encounter Details Date Type Department Care Team Description 05/23/2019 Refill Division of Nephrology and Phillip, Joel Bruno APRN, Med Refill Hypertension in [place], C.N.P ., M.S.N. [place] [address] [facility] [address] [place] [address] [place] [address] [phone] Social History Tobacco Use Types Packs/Day Years [...] How often do you attend pentecostal or synagogue 1 to 4 times per [...] Nicholas APRN C.N.P., D.N.P., M.S.N. [address] [place] [address] [phone] (Wo rk) 07/31/2022 Lab Laboratory Medicine Tony Rubalcava M. B., ChBurke, MDebra [address] [place] [address] [phone] (Wo rk) 07/31/2022 Lab Laboratory Medicine Tony Rubalcava M. B., ChBurke, MDebra [address] [place] [address] [phone] (Wo rk) 07/31/2022 Office Visit Transplant Tony Rubalcava M.B., Sydnie, MDebra [address] [place] [address] [phone] (Wo rk) 07/31/2022 Appointment Radiology Tony Rubalcava M.B.Sydnie M.D. [address] [place] [address] 55 [phone] (Wo behzad) 08/01/2022 Office Visit Transplant Tony Rubalcava M.B., Mukund [place] [address] [place] [address] [phone] (Nicolas wne) 08/01/2022 Clinical Support Transplant Tony Rubalcava M.B., Mukund [place] [address] [place] [address] [phone] (Nicolas wen) documented as of this encounter Visit Diagnoses Not on filedocumented in this encounter Additional Health Concerns Assessment Noted Time PHQ-9 Depression Total Score: 4 01/30/2019 12:13 PM CD T documented as of this encounter
--- OUTSIDE RECORDS SUMMARY | 2022-05-25 13:20 | XMS_ITS | Encounter Summary ---
:1960 Author Organization [facility] Address [address] [place] [address] Care Team Providers Name Role Phone Unavailable Primary Care Provider Unavailable Encounter Details Date Type Department Care Team Description 05/06/2019 Ancillary Procedure Department of Vascular Surgery Social History Tobacco Use Types Packs/Day [...] How often do you attend denominational or protestant 1 to 4 times per [...] An Nicholas APRN C.N.P., D.N.P., M.S.N. [address] [place] [address] [phone] (Nicolas rk) 07/31/2022 Lab Laboratory Medicine Tony Rubalcava M. B., Sydnie, Mukund [address] [place] [address] [phone] (Wo rk) 07/31/2022 Lab Laboratory Medicine Tony Rubalcava M. B., Sydnie, Mukund [address] [place] [address] [phone] (Wo rk) 07/31/2022 Office Visit Transplant Tony Rubalcava M.B., Sydnie, MDebra [address] [place] [address] [phone] (Wo rk) 07/31/2022 Appointment Radiology Tony Rubalcava M.B., Sydnie, Mukund [address] [place] [address] [phone] ( rk) 08/01/2022 Office Visit Transplant Tony Rubalcava M.B., Sydnie, MDebra [address] [place] [address] [phone] (Nicolas wen) 08/01/2022 Clinical Support Transplant BenteliTony M.B., Sydnie, Shashi. [address] [place], [place] [phone] (Wo rk) documented as of this encounter Procedures Procedure Name Priority Date/Time Associated Diagnosis Comme nts VASCULAR SURGERY Routine 05/06/2019 11:00 AM Resu lts for this IMAGE EXAM CDT procedure are i n the results section. documented in this encounter Results VascUltrasound-Vascular Surgery Image Exam (05/06/2019 11:00 AM CDT) Specimen (Source) Anatomical Location Collection Method / Collectio n Time Received Time / Laterality Volume Narrative IIMS - 05/09/2019 9:40 AM CDT This order has been created [...]
--- OUTSIDE RECORDS SUMMARY | 2022-05-25 13:20 | XMS_ITS | Encounter Summary ---
:1960 Author Organization [facility] Address [address] [place] [address] Care Team Providers Name Role Phone Unavailable Primary Care Provider Unavailable Reason for Visit Reason Comments Med Refill Encounter Details Date Type Department Care Team Description 05/12/2019 Refill [facility], [facility] esthela, Med Refill [facility], [facility] Lola , APR N, C.N.P., [facility], [facility].S [address] [place] [address] [address] [place], [place] [address] [place] [address] [phone] (Wo rk) Social History Tobacco Use Types [...] How often do you attend cheondoism or nondenominational 1 to 4 times per [...] Nicholas APRN, C.N.P., D.N.P., M.S.N. [address] [place] [address] [phone] (Nicolas wen) 07/31/2022 Lab Laboratory Medicine Tony Rubalcava M. B., ChDaviBDavi, M.Michelle. [address] [place] [address] [phone] (Nicolas wen) 07/31/2022 Lab Laboratory Medicine Tony Rubalcava M. B., ChDaviBDavi, MElvia. [address] [place] [address] [phone] (Nicolas wen) 07/31/2022 Office Visit Transplant Tony Rubalcava M.B., ChBurke, MElvia. [address] [place] [address] [phone] (Nicolas wen) 07/31/2022 Appointment Radiology Tony Rubalcava M.B., Mukund Otoole [address] [place] [address] [phone] (Wo rk) 08/01/2022 Office Visit Transplant Tony Rubalcava M.B., Sydnie, Mukund [address] [place] [address] [phone] (Wo rk) 08/01/2022 Clinical Support Transplant Tony Rubalcava M.B., Sydnie, Mukund [address] [place] [address] [phone] (Wo behzad) documented as of this encounter Visit Diagnoses Not on filedocumented in this encounter Additional Health Concerns Assessment Noted Time PHQ-9 Depression Total Score: 4 01/30/2019 12:13 PM CD T documented as of this encounter
--- OUTSIDE RECORDS SUMMARY | 2022-05-25 13:20 | XMS_ITS | Encounter Summary ---
:1960 Author Organization [facility] Address [address] [place] [address] Care Team Providers Name Role Phone Unavailable Primary Care Provider Unavailable Reason for Referral Outpatient (Routine) - Closed Specialty Diagnoses / Procedures Referred By Contact Refer red To Contact Vascular Medicine Diagnoses Wound [facility] Lola Perkins APRN, C.N.P., M.S. [address] [place] [address] Referral ID Status Reason Start Date Expiration Date Visits Requ ested Visits Authorized [id number] Closed 05/09/2019 05/08/2020 1 1 Scheduling Instructions Schedule at the [facility] on [facility] calendar. Encounter Details Date Type Department Care Team Description 05/09/2019 Orders Only Division of Vascular Jonh Marques Postoperative and Endovascular Lola Perkins APRN, Exam (Primary Dx) Surgery in [place], C.N.P., M. S. [place] [address] [facility] [address] [place] [phone] Social History Tobacco Use Types Packs/Day Years [...] How often do you attend druze or sabianism 1 to 4 times per [...] Nicholas APRN, C.N.P., D.N.P., M.S.N. [address] [place] [address] [phone] (Nicolas wen) 07/31/2022 Lab Laboratory Medicine Tony Rubalcava M. B., Ch.B., M.D. [address] [place] [address] [phone] (Nicolas wen) 07/31/2022 Lab Laboratory Medicine Tony Rubalcava M. B., Sydnie, Mukund [address] [place] [address] [phone] (Wo rk) 07/31/2022 Office Visit Transplant Tony Rubalcava M.B., Sydnie, Mukund [address] [place] [address] [phone] (Wo rk) 07/31/2022 Appointment Radiology Tony Rubalcava M.B., Sydnie, Mukund [address] [place] [address] [phone] (Wo rk) 08/01/2022 Office Visit Transplant Tony Rubalcava M.B., Sydnie, Mukund [address] [place] [address] [phone] (Wo rk) 08/01/2022 Clinical Support Transplant Tony Rubalcava M.B., Sydnie, Mukund [address] [place] [address] [phone] (Wo rk) Scheduled Referrals Name Type Priority Associated Diagnoses Order S chedule Vascular Surgery Outpatient Referral Routine Wound Postoperati ve Expected: Post Op (clinic) Exam 05/15/2019 (Approximate), Expires: 05/09/2022 documented as of this encounter Visit Diagnoses Diagnosis Wound Postoperative Exam - Primary documented in this encounter Additional Health Concerns Assessment Noted Time PHQ-9 Depression Total Score: 4 01/30/2019 12:13 PM CD T documented as of this encounter
--- OUTSIDE RECORDS SUMMARY | 2022-05-25 13:20 | XMS_ITS | Encounter Summary ---
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 [address] [place] [address] Referral ID Status Reason Start Date Expiration Date Visits Requ ested Visits Authorized [id number] Closed 05/07/2019 05/06/2020 1 1 Encounter Details Date Type Department Care Team Description 05/07/2019 Orders Only Division of Nephrology Guillermo Yu Chro taran Failure Renal and Hypertension in M.B.B.S. End Stage Renal [place], [place] [address] [facility] Disease Dialysis [address] [place], [place] Dependent (HCC) [place] [phone] (Primary Dx) [phone] Social History Tobacco Use Types Packs/Day Years [...] How often do you attend anabaptism or taoist 1 to 4 times per [...] Nicholas APRN, C.N.P., D.N.P., M.S.N. [address] [place] [address] [phone] (Nicolas wen) 07/31/2022 Lab Laboratory Medicine Tony Rubalcava M. B., Ch.Maurice, M.D. [address] [place] [address] [phone] (Nicolas wen) 07/31/2022 Lab Laboratory Medicine Tony Rubalcava M. B., Mukund Otoole [address] [place] [address] [phone] (Wo rk) 07/31/2022 Office Visit Transplant Tony Rubalcava M.B., Mukund Otoole [address] [place] [address] [phone] (Wo rk) 07/31/2022 Appointment Radiology Tony Rubalcava M.B., Mukund Otoole [address] [place] [address] [phone] (Wo rk) 08/01/2022 Office Visit Transplant Tony Rubalcava M.B., Mukund Otoole [address] [place] [address] [phone] (Wo rk) 08/01/2022 Clinical Support Transplant Tony Rubalcava M.B., Sydnie, Mukund [address] [place] [address] [phone] (Wo rk) Scheduled Referrals Name Type Priority Associated Order Schedule Diagnoses Nephrology nurse Outpatient Referral Routine Chronic Failure E xpected: visit (clinic) Renal End Stage 06/03/2019 Renal Disease (Approximate), Dialysis Dependent Expires: (HCC) 05/07/2022 documented as of this encounter Results US Hemodialysis Fistula-Graft Right (07/15/2019 1:47 PM BONDING SUPERVISOR) Anatomical Region Laterality Modality Body, Ultrasound RST LOS, Ultrasound ARZ LOS, Ultrasound FLA Right Ultrasound LOS, Procedural Specimen (Source) Anatomical Collection Method Collection Time Re ceived Time Location / / Volume Laterality 07/15/2019 1:55 PM BONDING SUPERVISOR Impressions 07/15/2019 2:29 PM BONDING SUPERVISOR Right brachial-axillary dialysis graft without significant stenosis and with normal flow volumes. ?? Narrative 07/15/2019 2:29 PM BONDING SUPERVISOR EXAM: US HEMODIALYSIS FISTULA-GRAFT RIGHT Exam performed [...] stenosis and with normal flow volumes. Guillermo WESTFALL US PROCEDURES documented in this encounter Visit [...]
--- OUTSIDE RECORDS SUMMARY | 2022-05-25 13:20 | XMS_ITS | Encounter Summary ---
:1960 Author Organization [facility] Address [address] [place] [address] Care Team Providers Name Role Phone Unavailable Primary Care Provider Unavailable Encounter Details Date Type Department Care Team Description 05/06/2019 Anesthesia Event RST ROMB MAIN OR Zhou Diane M.D. [address] [place] [phone] [address] [facility] Franchesca Yeboah APRN, FLORENCIO, D.N.P. [address] [place] [phone] [place] [address] Anesthesia Record Procedure Summary Procedure Name Responsible Anesthesia Start Anesthesia Stop Time Anesthesiologist Time Right arm Zhou Diane M.D. 05/06/19 1111 05/06/19 1729 brachio-basilic AV graft using 6mm propaten graft (Right) Events Date Time Event Comment 05/06/2019 1111 In Room 1111 An Start Machine/Equipmen t Checked Infection Precau tions Followed Procedure/Site V erified NPO Status Verified Supine Standard ASA Monitors Applied 1125 Turnover to Proceduralist 1142 Proc Start 1157 An Induction 1158 An Intubation 1251 Quick Note Surgeon injected more local anesthetic 1317 Quick Note LMA readjusted, Dr. Pedro Blunt notified. Patien t has expiratory wheezes so will give albuterol 1455 Quick Note Doing intraop an giogram [address] Pedro Blunt no tified of EBL. Dr. Yu says bleed ing is under control 1540 BP Support Discussed with Dr. Rodriguez at bedside and Anesthesiologist discussed EBL, IVF given, phenyl given, and basel ine Bps. Also, discussed no cur rent T/S and last Hgb was from Mar us2018. 1631 Quick Note Doing intraop an giogram 1706 Proc Fin 1710 Turnover to ANE Staff 1711 Airway Removal Criteria Met 171 Extubation/Airway Removed 1716 an stop data 1719 Out of Room 1729 An End I completed my h andoff to the receiving staff during which we 1. Identified the p atient 2. Identified the r esponsible provider 3. Revi ewed the pertinent medical history 4. Discussed the surgical course 5. Reviewed intra-op anesthe milo management and issues during an esthesia 6. Set expectations for post-procedure period 7. Allowe d opportunity for questions and ac knowledgement of understanding. Name Total midazolam PF injection 1 mg/mL 1 mg fentanyl injection 50 mcg/mL 125 mcg ketamine 10 mg/mL injection 10 mg lidocaine 2% (mg) injection 60 mg propofol 10 mg/mL injection 285 mg propofol 10 mg/mL infusion 1,640 mg ondansetron PF 4 mg/2 mL injection 4 mg ceFAZolin injection 2,000 mg (ANCEF) 6 g dexamethasone 4 mg/mL injection 8 mg phenylephrine 100 mcg/mL injection 1,800 mcg acetaminophen 10 mg/mL injection 1,000 mg albuterol inhaler 10 puff heparin 1,000 units/mL injection 9,000 Units droperidol 2.5 mg/mL injection 0.625 mg plasmalyte-A free drip 1,000 mL Agents No agents on file. Blood No blood administrations on file. Lines, Drains, and Airways Type Details Placement Removal Hemodialysis AV Access Placement Date: 05/06/19 05/06/19 0000 by (present upon arrival to Xin Proctor, pacu) R.N. Retired (Do not use) Placement Date: 08/24/03 08/24/03 0000 by 0 09/16/19 1422 by Hemodialysis AV Access ([place], [place]); Elvia Collins T aylor, Katherine Removal Date: 09/16/19; RRalf M, R.N. Removal Time: 1422 Hemodialysis AV Access Placement Date: 02/10/19 1341 by 09/15/19 1350 by 02/10/19; Placement Noelle Fink Bartelt, J ennifer Time: 1341; Removal R.Ritu Bruno, R.N. Date: 09/15/19; Removal Time: 1350 Hemodialysis Catheter Placement Date: 05/05/19 1000 by 09/16/19 1200 by 05/05/19; Placement Zoraida Rosenberg R.N. Taylor, Katherine Time: 1000; Catheter M, R.N. Length (cm): 22 cm; Secured: Sutured, Transparent dressing; Removal Date: 09/16/19; Removal Time: 1200 Hemodialysis AV Access Placement Date: 05/06/19 0000 by 04/07/22 0000 by 05/06/19; Removal Date: Harini Lim Sack ett, Colin J, 04/07/22 (duplicate LDA) R.N. R.N. Peripheral IV Placement Date: 05/06/19 0958 by 05/11/19 1249 b y 05/06/19; Placement Robbie Chen Joseph A Time: 09; Catheter Size: 22 G; Orientation: Left; Location: Hand; Site Prep: Chlorhexidine (Preferred); Technique: Anatomical landmarks; Insertion Attempts: 2; Removal Date: 05/11/19; Removal Time: 1249; Removal Reason: Infiltrated (RETIRED) Incision 05/06/19; 1152; Arm; 05/06/19 1152 by 9 2351 by Right, Upper; Stephanie Menjivar PRM, Manyang, Christina WND NONADH X6; R.N. M, D.N.P., R .N. 05/31/19; 2351; Old auxillary incision and medial elbow incision from previous procedures. New LDA for new surgcial procedure. Supraglottic Airway Placement Date: 05/06/19 1158 by 05/06/19 17 11 by 05/06/19; Placement Hermila Adorno, Jonh Adorno S, Time: 1158 (created via REPEAT PHOTOCOMPOSING MACHINE OPERATOR, FLORENCIO WHITE, COOPER NA procedure documentation); Removal Date: 05/06/19; Removal Time: 1711 (RETIRED) Incision 05/06/19; 1701; Arm; 05/06/19 1701 by 9 2147 by Right; DRS PRM WND Benji Adorno Manyang, Christina NONADH -08/27X6; 05/30/19 RRalf Mascorro, Michelle.Milady. P., R.N. (upper right arm only incision at this time of admit); 2147 documented in this encounter Social History Tobacco [...] How often do you attend sabianism or christian 1 to 4 times per [...] as of this encounter OR Notes Anesthesia Preprocedure Evaluation - Elena Jolly M.D. - 05/09/2019 9:36 AM CDT Preprocedure Anesthesia & H&P Assessment Procedure Summary Anesthesia Start Date/Time: 05/06/19 1111 Procedures: CREATION ARTERIOVENOUS FISTULA UPPER EXTREMITY, First stage brachialbasilic arteriovenous fistula, Proceed as indicated. 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 Location: [address] / [facility] in [place], [place] Provider: Guillermo Yu M.B.B.S. Pertinent components [...] TM Distance: >3 FB Neck ROM: Full Cardiovascular Rhythm: Regular Rate: Normal Cardiovascular Assessment: cardiovascular normal Functional Capacity: <4 METS Pulmonary Pulmonary Assessment: Clear General / Constitutional Constitutional Assessment: Normal Neurological Neurologic Assessment:??alert and alert and oriented x 3 Dental Dental Assessment: dentition intact ASSESSMENT / PLAN ANESTHESIA PLAN ASA: 3 Anesthesia Plan: general GA with LMA Patient seen and allergies reviewed, anesthesia plan and risks discussed directly with patient /legal guardian or through an paraprofessional interpreter.. Risks/Benefits/Alternatives of Blood transfusion discussed with patient / legal guardian, including an opportunity to ask questions and/or decline some or all transfusion therapies. The patient / legalguardian consented to the use of all blood products, as deemed medically necessary Approval to Proceed: approved for anesthesia Anesthesia Postprocedure Evaluation - Samm Mckinney M.D. - 05/06/2019 6:19 PM CDT Patient: Shabnam Wray Procedure Summary Date: 05/06/19 Room / Location: [address] / [facility] in [place], [place] Anesthesia Start: 1111 Anesthesia Stop: Procedures: CREATION ARTERIOVENOUS FISTULA UPPER EXTREMITY, First stage brachialbasilic arteriovenous fistula, Proceed as indicated. 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 Responsible Provider: Zhou Diane M.D. Anesthesia Type: general ASA Status: Not recorded Anesthesia Type: general Last vitals Vitals Value Taken Time BP 146/80 05/06/2019 6:15 PM Temp 36.9 ??C 05/06/2019 6:00 PM Pulse 72 05/06/2019 6:19 PM Resp 13 05/06/2019 6:19 PM SpO2 98 % 05/06/2019 6:19 PM Vitals shown include unvalidated device data. [...] Hydration status: euvolemic Anesthesia Procedure Notes - Hermila Adorno APRN, CRNA - 05/06/2019 1:04 PM CDTAssociated Order(s): Airway Airway Date/Time: 05/06/2019 11:58 AM Performed by: Hermila Adorno APRN, CRNA Authorized by: Zhou Diane M.D. Care team members present 1. Franchesca Yeboah APRN, CRNA 3. Elena Jolly M.D. Patient location during procedure: OR / Procedure Area Additional Comments Airway completed by Alvaro Yeboah CRNA and Dr. Elena Jolly. PROCEDURE DETAILS: Final airway type: supraglottic airway Laryngeal Manipulation: [...] Procedure outcome: successful Airway event: no complications documented in this encounter Plan of Treatment Upcoming Encounters Date Type Specialty Care Team Description 06/01/2022 Telemedicine Pharmacy An Nicholas APRN, C.N.P., D.N.P., M.S.N. [address] [place] [address] [phone] (Nicolas wen) 07/31/2022 Lab Laboratory Medicine Tony Rubalcava M. B., Ch.B., MElvia. [address] [place] [address] [phone] (Wo behzad) 07/31/2022 Lab Laboratory Medicine Tony Rubalcava M. B., Ch.B., M.D. [address] [place] [address] [phone] (Wo rk) 07/31/2022 Office Visit Transplant Tony Rubalcava M.B., Mukund Otoole [address] [place] [address] [phone] (Wo rk) 07/31/2022 Appointment Radiology Tony Rubalcava M.B., Mukund Otoole [address] [place] [address] [phone] (Wo rk) 08/01/2022 Office Visit Transplant Tony Rubalcava M.B., Mukund Otoole [address] [place] [address] [phone] (Wo rk) 08/01/2022 Clinical Support Transplant Tony Rubalcava M.B., Mukund Otoole [address] [place] [address] [phone] (Wo rk) documented as of this encounter Procedures Procedure Name Priority Date/Time Associated Diagnosis Comme nts LDA ANE Routine 05/06/2019 1:04 PM Results f or this NON-SURGICAL AIRWAY CDT procedur e are in the results section. documented in this encounter Results LDA ANE NON-SURGICAL AIRWAY (05/06/2019 1:04 PM CDT) Narrative Hermila Adorno APRN, CRNA - 9 1:04 PM CDT Hermila Adorno APRN, CRNA ? 05/06/2019 ??1:05 PM Airway Date/Time: 05/06/2019 11:58 AM Performed by: Hermila Adorno APRN, CR NA Authorized by: Zhou Diane M.D. Care team members present 1. Franchesca Yeboah APRN, CRNA 3. Elena Jolly M.D. Patient location during procedure: OR / Procedure Area Additional Comments Airway completed by Alvaro Yeboah CRNA and Dr. Elena Jolly. ?? PROCEDURE DETAILS: Final airway type: supraglottic airway Laryngeal Manipulation: [...] outcome: successful ?? Airway event: no complications Zhou Blunt M.D. ANESTHESIA ORDERABLES documented in this encounter Visit Diagnoses Not on filedocumented in this encounter Administered Medications Inactive Administered Medications - up to 3 most recent administrations Medication Order MAR Action Action Date Dose Rate Site acetaminophen injection Given 05/06/2019 1:14 PM CDT 1,000 mg (OFIRMEV) Administer over 15 Minutes, As needed, Starting on Sun05/06/19 at 1314, Anesthesia Intra-op albuterol 90 mcg/actuation inhaler Given 05/06/2019 1:28 PM CDT 10 puffs (PROVENTIL HFA,VENTOLIN HFA) As needed, Starting on Sun05/06/19 at 1328, Anesthesia Intra-op ceFAZolin injection 2,000 mg (ANCEF) Given 05/06/2019 5:09 PM CDT 2 g 2,000 mg (rounded from 2,497.5 mg = 25 m g/kg ? 99.9 kg), intravenous, Once, On Sun05/06/19 at 0915, For 1 dose, Intra-Op, Preoperatively within 1 hour prior to surgical incision [place]minster IV push over 3 minutes. Add 5 mL NS to 1 gram vial for a final concentration of 200 mg/mL., Drug Monitoring Program: Pharmacist to adjust medication dosing based on indication and drug clearance factors., Indications: Prophylaxis, surgical Given 05/06/2019 2:36 PM CDT 2 g Given 05/06/2019 11:39 AM CDT 2 g dexamethasone injection (DECADRON) Given 05/06/2019 12:45 PM CDT 8 mg As needed, Starting on Sun05/06/19 at 1245, Anesthesia Intra-op droperidol injection (INAPSINE) Given 05/06/2019 4:41 PM CDT 0.625 mg intravenous, As needed, Starting on Sun05/06/19 at 1641, Anesthesia Intra-op electrolyte-A solution (PLASMA-LYTE A) New Bag 05/06/2019 5:00 PM CDT intravenous, Continuous Infusion: Per Instructions PRN, Starting on Sun05/06/19 at 1111, Anesthesia Intra-op New Bag 05/06/2019 11:11 AM CDT fentaNYL injection (SUBLIMAZE) Given 05/06/2019 4:21 PM CDT 25 mcg intravenous, As needed, Starting on Sun05/06/19 at 1217, Anesthesia Intra-op Given 05/06/2019 3:03 PM CDT 12.5 mcg Given 05/06/2019 1:41 PM CDT 12.5 mcg heparin (porcine) 1,000 unit/mL Given 05/06/2019 4:01 PM CDT 2,0 00 Units injection As needed, Starting on Sun05/06/19 at 1336, Anesthesia Intra-op Given 05/06/2019 3:04 PM CDT 2,000 Units Given 05/06/2019 1:36 PM CDT 5,000 Units ketamine injection (KETALAR) Given 05/06/2019 11:29 AM CDT 10 mg intravenous, As needed, Starting on Sun05/06/19 at 1129, Anesthesia Intra-op lidocaine (PF) (cardiac) injection Given 05/06/2019 11:29 AM CDT 60 mg intravenous, As needed, Starting on Sun05/06/19 at 1129, Anesthesia Intra-op midazolam (PF) injection (VERSED) Given 05/06/2019 11:58 AM CDT 1 mg As needed, Starting on Sun05/06/19 at 1158, Anesthesia Intra-op ondansetron (PF) injection (ZOFRAN) Given 05/06/2019 4:57 PM CDT 4 mg intravenous, As needed, Starting on Sun05/06/19 at 1657, Anesthesia Intra-op phenylephrine injection Given 05/06/2019 5:00 PM CDT 100 mcg intravenous, As needed, Starting on Sun05/06/19 at 1308, Anesthesia Intra-op Given 05/06/2019 4:44 PM CDT 150 mcg Given 05/06/2019 4:35 PM CDT 100 mcg propofol 10 mg/mL infusion (DIPRIVAN) New Bag 05/06/2019 2:20 PM CDT intravenous, Continuous Infusion: Per Instructions PRN, Starting on Sun05/06/19 at 1129, Anesthesia Intra-op Rate/Dose Change 05/06/2019 11:55 AM CDT 50 mcg/kg/min 30 mL/hr Rate/Dose Change 05/06/2019 11:43 AM CDT 50 mcg/kg/min 30 mL/hr propofol injection (DIPRIVAN) Given 05/06/2019 12:51 PM CDT 25 mg intravenous, As needed, Starting on Sun05/06/19 at 1129, Anesthesia Intra-op Given 05/06/2019 11:55 AM CDT 200 mg Given 05/06/2019 11:37 AM CDT 20 mg documented in this encounter Additional Health Concerns Assessment Noted Time PHQ-9 Depression Total Score: 4 01/30/2019 12:13 PM CD T documented as of this encounter
--- OUTSIDE RECORDS SUMMARY | 2022-05-25 13:20 | XMS_ITS | Encounter Summary ---
:1960 Author Organization [facility] Address [address] [place] [address] Care Team Providers Name Role Phone Unavailable Primary Care Provider Unavailable Encounter Details Date Type Department Care Team Description 05/14/2019 Clinical Communication Division of Nephrology Steve Martínez and Hypertension in [place] Garcia D.O. [place], [place] [address] [place] [address] 200 [place] [phone] Social History Tobacco Use Types Packs/Day Years [...] How often do you attend temple or oriental orthodox 1 to 4 times [...] Encounter - Steve Martínez Jr., D.O. - 05/14/2019 4:29 PM CDT Phone call, she has a RX for cephadroxil at the pharmacy and called regarding clarification of warfarin dose while she is on the ABX. I confirmed she should only take 2 mg warfarin while she is on the antibiotic, as her INR is 1.8 without antibiotics. documented in this encounter Plan of Treatment Upcoming Encounters Date Type Specialty Care Team Description 06/01/2022 Telemedicine Pharmacy An Nicholas APRN, C.N.P., D.N.P., M.S.N. [address] [place] [address] [phone] (Wo rk) 07/31/2022 Lab Laboratory Medicine Tony Rubalcava M. B., Ch[place], MDebra [address] [place] [address] [phone] (Wo rk) 07/31/2022 Lab Laboratory Medicine Tony Rubalcava M. B., Syd[place], MDebra [address] [place] [address] [phone] (Wo rk) 07/31/2022 Office Visit Transplant Tony Rubalcava M.B., [place], [place] [address] [place] [address] [phone] (Wo rk) 07/31/2022 Appointment Radiology Tony Rubalcava M.B., [place], [place] [address] [place] [address] [phone] (Wo rk) 08/01/2022 Office Visit Transplant Tony Rubalcava M.B., [place], [place] [address] [place] [address] [phone] (Wo rk) 08/01/2022 Clinical Support Transplant Tony Rubalcava M.B., Sydnie, [place] [address] [place] [address] [phone] (Wo rk) documented as of this encounter Visit Diagnoses Not on filedocumented in this encounter Additional Health Concerns Assessment Noted Time PHQ-9 Depression Total Score: 4 01/30/2019 12:13 PM CD T documented as of this encounter
--- OUTSIDE RECORDS SUMMARY | 2022-05-25 13:20 | XMS_ITS | Encounter Summary ---
:1960 Author Organization [facility] Address [address] [place] [address] Care Team Providers Name Role Phone Unavailable Primary Care Provider Unavailable Encounter Details Date Type Department Care Team Description 05/14/2019 Orders Only Division of Nephrology and Neymar Martínez Hypertension in [place], ., D.O. [place] [address] [facility] [address] [place] [phone] (Wo rk) Social History Tobacco Use Types [...] How often do you attend gnosticism or mormon 1 to 4 times per [...] Nicholas APRN C.N.P., D.N.P., M.S.N. [address] [place] [address] [phone] (Wo rk) 07/31/2022 Lab Laboratory Medicine Tony Rubalcava M. B., [place], MDebra [address] [place] [address] [phone] (Wo rk) 07/31/2022 Lab Laboratory Medicine Tony Rubalcava M. B., [place], MDebra [address] [place] [address] [phone] (Wo rk) 07/31/2022 Office Visit Transplant Tony Rubalcava M.B., [place], [place] [address] [place] [address] [phone] (Wo rk) 07/31/2022 Appointment Radiology Tony Rubalcava M.B., [place], [place] [address] [place] [address] [phone] (Wo rk) 08/01/2022 Office Visit Transplant Tony Rubalcava M.B., [place] [address] [place] [address] [phone] (Wo rk) 08/01/2022 Clinical Support Transplant Tony Rubalcava M.B., [place], [place] [address] [place] [address] [phone] (Wo rk) documented as of this encounter Visit Diagnoses Not on filedocumented in this encounter Additional Health Concerns Assessment Noted Time PHQ-9 Depression Total Score: 4 01/30/2019 12:13 PM CD T documented as of this encounter
--- OUTSIDE RECORDS SUMMARY | 2022-05-25 13:20 | XMS_ITS | Encounter Summary ---
:1960 Author Organization [facility] Address [address] [place] [address] Care Team Providers Name Role Phone Unavailable Primary Care Provider Unavailable Encounter Details Date Type Department Care Team Description 05/06/2019 - Hospital Encounter [facility] Guillermo Yu, Failure Renal End Stage (HCC) (Primary Dx); 05/12/2019 [facility] Chronic Failure Renal End Stage Renal Di sease Dialysis Dependent (HCC) [facility], [place] [address] [facility], [place], [place] Fifth Floor [id number] [place] [address] [place], [place] (Work) [phone] Social History Tobacco Use Types Packs/Day [...] How often do you attend taoist or hoahaoism 1 to 4 times per [...] Reading Time Taken Comments Blood Pressure 96/62 05/12/2019 12:15 PM CDT Pulse 49 05/12/2019 12:15 PM CDT Temperature 36.8 ??C (98.2 ??F) 05/12/2019 12:15 PM CDT Respiratory Rate 20 05/12/2019 12:15 PM CDT Oxygen Saturation 93% 05/12/2019 12:15 PM CDT Inhaled Oxygen Concentration - - Weight 102 kg (224 lb 3.3 oz) 05/12/2019 11:29 AM CDT Height 164 cm (5' 4.57) 05/06/2019 7:10 AM CDT Body Mass Index 37.81 05/06/2019 7:10 AM CDT documented in this encounter Discharge Summaries Lola Marques, CONCRETE BATCHER, C.N.P. - 05/12/2019 11:43 AM CDT DISCHARGE SUMMARY BRIEF OVERVIEW Discharge Provider: Guillermo Yu M.B.B.SDavi No primary care provider on file. Primary Care Provider Phone Number: None Primary Care Provider Fax Number: None Admission Date: 05/06/2019 Discharge Date: 05/12/19 PRINCIPAL DIAGOSIS Chronic Failure Renal End Stage Renal Disease Dialysis Dependent (HCC) SECONDARY DIAGNOSES Principal Problem: Chronic Failure Renal End Stage Renal Disease Dialysis Dependent (HCC) Active Problems: Chronic Kidney Disease NOS Obstruction Ureter Complication Dialysis Device Subsequent Anticoagulant Therapy Failure Renal End Stage (HCC) Resolved Problems: * No resolved hospital problems. * Surgery Information This Encounter Past Procedures (05/12/2018 to Today) Date Procedures Providers Location 05/06/2019 Right arm brachio-basilic AV graft using 6mm propaten graft, IR IMAGING Guillermo Yu M.B.B.S.Biggs, Joedd, M.D.Paul Travis M.D., Ph.D. RST ROMB OR DISCHARGE DISPOSITION Home or Self Care [1] ACTIVE ISSUES REQUIRING FOLLOW-UP An appointment for incisional assessment has been made for 05/15/19 at 11:30am at [facility], [facility], Main Floor, Desk M-D. It is recommended that an INR be checked on 05/14/[address] [facility] ([address] [place] [address], [place]) at 1pm with Cecille Lovett. A follow-up appointment with your primary care provider (PCP) should be scheduled within 4-7 days after dismissal from the hospital. This will give you the opportunity to discuss your hospital course and share any important current care needs with your PCP. A copy of the discharge summary has been faxed for their review. Should you need to contact Dr. Yu or his service, you may do so through his medical office manager at during normal business hours of 8 to 5 Sunday through Sunday or, in an emergency situation, through the [facility] mixing tumbler operator at . OUTPATIENT FOLLOW UP Future Appointments Date Time Provider Department Center 05/15/2019 11:30 AM VAS GRAHAM 01 ROMB VAS ROMB RST Spec 06/03/2019 8:30 AM US ROGO 04 RM 07 RAD US ROGO4 RST Spec 06/03/2019 10:30 AM NEP DLS NURSE 01 CESAR GUERRERO RST Spec TEST RESULTS PENDING AT DISCHARGE DETAILS OF HOSPITAL STAY REASON FOR ADMISSION Chronic Failure Renal End Stage Renal Disease Dialysis Dependent (HCC) Failure Renal End Stage (HCC) Failure Renal End Stage (HCC) HOSPITAL COURSE Ms. Wray was admitted to Dr. Yu's surgical service following first stage brachialbasilic arteriovenous fistula placement on 05/06/2019. She tolerated the procedure well and was transferred to the vascular surgical unit postoperatively. Heparin infusion was initiated for anticoagulation therapy.Pain was managed with intravenous pain medications, which was later transitioned to oral pain medications with adequate control. Right upper extremity incision was well approximated and without erythema but draining serosanguinous fluid in a moderate amount. Cefadroxil was initiated and should be continued for at least 7 mg. Neurological exam was intact. At the time of dismissal, she was tolerating ageneral diet, ambulating, and urinating without difficulty. Aspirin was continued throughout the perioperative course and should be continued lifelong. Warfarinwas resumed on 05/06/19, see below. Ms. Wray was continued on previous statin therapy. Continue to follow-up with primary care for ongoing monitoring. Nephrology was consulted to assist with ongoing dialysis needs while hospitalized. Coumadin Therapy: You are being discharged on Coumadin, a medication that will help you keep your blood thin and prevent clots. It is important to keep your Coumadin dose at a target level so your blood is not too thin or too thick. Anticipated duration of Coumadin/Warfarin therapy: Lifelong Coumadin therapy (Date - INR/dose): 05/10/19: 1.2 INR/ 4 mg 05/11/19: 1.6 INR/ 4 mg 05/12/19: 2.1 INR/ 4 mg 05/13/19: Take 4 mg. 05/14/19: Have your INR checked at the clinic. Further dosing per the provider there. COUMADIN (WARFARIN) WARNING 1. Coumadin (Warfarin, an anticoagulant) is a medication which decreases your body's ability to clotyour blood and therefore, may cause bleeding. Signs or symptoms of bleeding may include, but are notlimited to, the following: black- colored bowel movements, rectal bleeding, new bleeding while brushing your teeth, nose bleeds, or increased bruising. If you develop any of these signs or symptoms, youneed to seek medical attention urgently. 2. Follow a consistent vitamin K diet. 3. Your target INR: 2.0-3.0. 4. The reason you need to take Coumadin (Warfarin) is for: thrombosis. 5. Only take aspirin or NSAID medications if your doctor prescribes them. 6. Coumadin requires follow up of your INR. You will have your INR checked within 2-4 days after discharge with your primary care provider. CONSULTS ORDERED DURING THIS ADMISSION IP CONSULT TO NEPHROLOGY Pertinent Diagnostic Results: Dx Abdomen 1 View Result Date: 05/10/2019 Impression: Ureteral stent in the right iliac fossa transplant to the bladder. Moderate fecal loading of the colon. No evidence of bowel obstruction. Distention of the stomach. Us Hemodialysis Fistula-graft Right Result Date: 05/11/2019 Impression: 1. Right brachiocephalic arteriovenous fistula with graft to axillary vein is patent without significant stenosis. 2. Stable small fluid collections about the graft likely represent postoperative fluid/hematoma without significant change in size or appearance since the comparison exam. Us Hemodialysis Fistula-graft Right Result Date: 05/07/2019 Impression: Right brachiobasilic arteriovenous fistula with graft to axillary vein is patent withoutsignificant stenosis and with normal flow volume. Small fluid collections about the graft, likely postoperative fluid/hematoma. Bld Urea Nitrog(BUN), S Date Value Ref Range Status 05/12/2019 58 (H) 6 - 21 mg/dL Final Creatinine, S Date Value Ref Range Status 05/12/2019 8.07 (H) 0.59 - 1.04 mg/dL Final Recent Results (from the past 24 hour(s)) CBC without Differential Collection Time: 05/12/19 5:01 AM Result Value Hemoglobin 8.6 (L) Hematocrit 26.9 (L) Erythrocytes 2.94 (L) MCV 91.5 RBC Distrib Width 14.6 Platelet Count 127 (L) Leukocytes 10.6 (H) PT (Prothrombin Time) with INR Collection Time: 05/12/19 5:01 AM Result Value Prothrombin Time, P 23.0 (H) INR 2.1 Heparin Anti-Xa Assay Collection Time: 05/12/19 5:01 AM Result Value Heparin Anti-Xa, P 0.29 BMP (Basic Metabolic Panel) Collection Time: 05/12/19 7:31 AM Result Value Potassium, S 4.7 Sodium, S 122 (L) Chloride, S 80 (L) Bicarbonate, S 19 (L) Anion Gap 23 (H) Bld Urea Nitrog(BUN), S 58 (H) Creatinine, S 8.07 (H) eGFR-Non Black <15 (L) eGFR-Black <15 (L) Calcium, Total, S 9.0 Glucose, S 104 CONDITION AT DISCHARGE stable Code Status at Discharge: Full Discharge instructions were provided to the patient and caregiver(s). documented in this encounter Discharge Instructions Discharge InstructionsSeCesar rae R.N. - 05/08/2019 10:42 AM CDT OUTPATIENT DIALYSIS: Patient to resume Sunday, Sunday, Sunday dialysis [facility] [place], [place] [phone] documented in this encounter Medications at Time of Discharge Medication Sig Dispensed Refills Start Date End Date hydrocortisone Apply 1 application 0 09/18/2017 (for_HYTONE) 2.5 % topically daily as cream needed (Eczema). B complex Take 1 tablet by 0 06/13/2017 05/31/20 84-gafou-P-biot-zinc mouth daily. (DIALYVITE) [phone] gj-ke-rtl-mg tablet calcium carbonate Chew 2 tablets 2 0 0 04/07/2022 (TUMS) 500 mg (200 mg (two) times a day calcium) chewable with meals. Lunch tablet and dinner. gabapentin (NEURONTIN) Take 2 capsules (200 120 capsule 11 12/08/2019 100 mg capsule mg total) by mouth 2 (two) times a day. mycophenolate Take 1 capsule (250 180 capsule 3 03/14/2019 0 03/05/2020 (CELLCEPT) 250 mg mg total) by mouth 2 capsule (two) times a day. Do not break, cut, or open capsules. nebivolol (BYSTOLIC) 10 Take 1 tablet (10 mg 90 tablet 3 09/02/2019 mg tabletIndications: total) by mouth Transplant Renal (HCC) daily. predniSONE (DELTASONE) Take 1 tablet (5 mg 90 tablet 3 1003/201807/10/2019 5 mg tablet total) by mouth daily. tacrolimus (PROGRAF) 1 Take 2 capsules (2 360 capsule 3 03/201812/08/2019 mg capsule mg total) by mouth 2 (two) times a day. cefadroxil (DURICEF) Take 1 capsule (500 7 capsule 0 201805/19/2019 500 mg mg total) by mouth capsuleIndications: daily for 7 days Skin and soft tissue Indications: Skin infection and soft tissue infection. acetaminophen (TYLENOL) Take 2 tablets 0 05/12/2004/07/2022 500 mg tablet (1,000 mg total) by mouth every 6 (six) hours as needed for pain. lidocaine-prilocaine Apply 1 application 30 g 11 201709/15/2019 (EMLA) 2.5-2.5 % cream topically as directed. omeprazole (PriLOSEC) Take 1 capsule (40 60 [...] off as soon as you are able. rosuvastatin (CRESTOR) Take 1 tablet (5 mg 90 tablet 3 12/1812/29/2019 5 mg tablet total) by mouth daily. sennosides-docusate Take 2 tablets by 0 09/15/2019 sodium (SENOKOT-S) mouth at bedtime as 8.6-50 mg per tablet needed for constipation. sevelamer (RENVELA) 800 Take 1 tablet (800 270 tablet 3 06/2107/17/2019 mg tablet mg total) by mouth 3 (three) times a day with meals. warfarin (COUMADIN) 2 Take 2 tablets (4 mg 180 tablet 3 04/2105/16/2019 mg tablet total) by mouth daily. Take 4 mg on 05/12 and 05/13. Have your INR checked on 05/14. Further dosing per local provider. INR goal 2.0-3.0.Take as directed per After Visit Summary. documented as of this encounter Progress Notes Deanne Fisher APRN, C.N.P., M.S.N. - 05/12/2019 11:29 AM CDT SUBJECTIVE Ms. Wray was seen and examined while receving intermittent hemodialysis. She denies shortness of breath and is tolerating the dialysis well. Her INR is 2.1 today and therefore she is being prepared to discharge from the hospital. She does note ongoing heartburn. Fortunately, she did have a bowel movement this weekend after being administered a bisacodyl suppository. Today, Ms. Wray's pre dialysis weight is noted to be 6 kg above her prescribed dry weight. I offered to set her up with an extra session for fluid removal at the [facility] outpatient dialysis, though she would prefer to wait and see if we can catch up on her volume status with her other dialysis sessions later this week. She knows she will need to be cautious with her fluid intake over the next few days. I have reviewed the current medication list. OBJECTIVE Admission Weight: 100 kg Current Weight: 104 kg VITAL SIGNS Temperature: [36.5 ??C-36.8 ??C] 36.7 ??C Heart Rate: [62] 62 Resp Rate: [18-20] 18 Blood Pressure: (88-148)/(46-93) 95/55 FiO2 (%): [97 %] 97 % SpO2: [96 %-98 %] 97 % Pulse Rate: [58-68] 58 Intake/Output Summary (Last 24 hours) at 05/12/2019 1129 Last data filed at 05/12/2019 1057 Gross per 24 hour Intake 1830 ml Output 2 ml Net 1828 ml PHYSICAL EXAM General: Alert and oriented, sitting in the recliner, in no acute distress Heart: Regular rate and rhythm Lungs: Clear to auscultation in the anterior lung wilde bilaterally Extremities: There is trace edema of the lower extremities bilaterally Vessels: Right EJ tunneled hemodialysis catheter is working well for dialysis with a blood flow rateof 350 mL/min. Right upper extremity AV graft has a bruit and thrill. There is tenderness to palpation and ongoing ecchymosis. Drainage has improved but continues to be present from the distal incision. DIAGNOSTICS I have reviewed labs. 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 Ms. Wray is dialyzing today for 3.5 hours with a net removal of 3.6 L. She is dialyzing with a 2 mEq/L potassium and 2.5 mEq/L calcium. Her next dialysis is planned for Sunday at the [facility] outpatient dialysis unit. Continued recommendations: -- Ok to continue with a general diet -- Continue Dialyvite, one tablet each evening -- Hectorol will not be administered in the inpatient setting due to not being on the [facility] formulary. This will be resumed in the outpatient dialysis setting. -- Continue outpatient immunosuppressive regimen which includes mycophenolate 250 mg twice daily, prednisone 5 mg daily, and tacrolimus 2 mg twice daily. -- Ms. Wray has follow up arranged with the anticoagulation clinic in [place] this Sunday, May 14, 2019 -- Please continue phosphorus binders of sevelamer 800 mg with breakfast and Tums 1000 mg (2 regularstrength tablets) with lunch and dinner. Per Ms. Wray, this is the regimen she has been using at home. -- Please recall that magnesium and aluminum containing products should not be administered for heartburn management in the setting of Ms. Wray having end stage renal disease. -- Ok to continue omeprazole for ongoing GERD -- Ensure cefadroxil is administered after dialysis on dialysis days as this medication is heavily dialyzable. New recommendations: -- We will review the anemia protocol at [facility], once she is euvolemic, and consider initiating Ms. Wray on an erythropoietin stimulating agent. Her iron studies from May 09 are within the desired range for dialysis patients. -- Ms. Wray was offered an extra ultrafiltration in the outpatient dialysis setting, though shewould prefer to hold off on this for now to see if she can limit her fluids enough to allow us to improve her volume status. I will see her this Sunday in the outpatient dialysis setting to revisit howher volume status is doing. Thank you for the opportunity to participate in 's care. For questions or concerns, please page the Nephrology A WOOD LATHE OPERATOR/PA pager ([phone]). Associated attestation - Bill Ruiz M.D. - 05/12/2019 4:07 PM CDT I was the supervising physician in the delivery of the service. Ms Wray was seen in dialysis this morning. She was 2 hours into her 3-1/2 hour run. She is on target to remove a total of 3.5 L over the course of the run. She is now on therapeutic Coumadin for her frequently clotting catheters and other chronic issues with venous clotting. She will likely discharged home later after dialysis today.. On exam she is doing well and clinically euvolemic.. Jaciel Trejo M.D. - 05/11/2019 9:36 AM CDT Mrs. Wray is a 58-year-old female patient who is postoperative day number 5 for 1st stage brachial basilic AV fistula No acute events overnight. Vitals are stable and normal. Pain is well controlled on oral pain medications. Tolerating a general diet. Patient underwent dialysis yesterday with 2.3 L of fluid removed. Hemoglobin stable at 8.4. Creatinine is 6.53. BUN is 36. Sodium is 129. On exam: General: Patient is alert, oriented, in no distress. Well-appearing. Heart: Regular rate and rhythm Lungs: Breathing comfortably on room air Extremities: Right upper extremity is swollen, ecchymotic. Fistula is audible with Doppler. Biphasicradial and ulnar signals. PLAN -discharge pending INR goal of 2-3 -Pain: Tylenol oxycodone -Diet: Regular -Antibiotics: Cefadroxil 500 mg stay -Cultures: None -Wound care: Continue elevating the right upper extremity as past -Drains: None -Activity: Up and walking as tolerated -DVT prophylaxis: On therapeutic heparin bridging to warfarin -Consults: Nephrology for assistance with managing chronic kidney disease/dialysis Please do not hesitate to contact Dr. Yu's Service with questions Josh Rojas Pharm.D., R.Ph. - 05/11/2019 8:44 AM CDT Warfarin Dosing Progress Note: More information: Shabnam Wray is a 58 y.o. female who was admitted to the hospital on 05/06/2019. Hospital Pharmacy has been consulted for inpatient warfarin management and monitoring. Warfarin Indication: Other (Comment) Other indication (comments): AV graft Type of therapy: Resume Prior average daily dose: 3 Comorbidities: No known risk Are any of these comorbidities new with admission? No Are there any new medication interactions with admission? Yes Target INR: 2 - 3 Day of therapy: 5 and beyond Drug interactions include the following: Strong Potentiator (From admission, onward) None Moderate Potentiators (From admission, onward) Start Dose/Rate Route Frequency Ordered Stop 05/06/19 2100 acetaminophen tablet 1,000 mg (TYLENOL) 1,000 mg oral 4 times daily 05/06/19 1905 Potentiating (From admission, onward) Start Dose/Rate Route Frequency Ordered Stop 05/11/[address] capsule 40 mg (PriLOSEC) 40 mg oral 2 times daily before breakfast and dinner 05/10/19 1856 05/09/19 0900 cefadroxil capsule 500 mg (DURICEF) 500 mg oral Daily 05/09/19 0803 05/06/19 2100 acetaminophen tablet 1,000 mg (TYLENOL) 1,000 mg oral 4 times daily 05/06/19 1905 Enzyme Inducers (From admission, onward) None Binders (From admission, onward) Start Dose/Rate Route Frequency Ordered Stop 05/09/19 0900 sevelamer tablet 800 mg (RENAGEL) 800 mg oral Daily 05/08/19 1020 Vitamin K-Containing Medications (168h ago, onward) None Antiplatelets & Anticoagulants (168h ago, onward) Start Dose/Rate Route Frequency Ordered Stop 05/10/19 1700 warfarin tablet 4 mg (COUMADIN) 4 mg oral Once 05/10/19 0830 05/10/19 1734 05/10/19 1545 heparin (porcine) 1,000 unit/mL injection 3,000 Units 3,000 Units intra-catheter Once 05/10/19 1537 05/10/19 1549 05/10/19 1545 heparin (porcine) 1,000 unit/mL injection 3,000 Units 3,000 Units intra-catheter Once 05/10/19 1537 05/10/19 1549 05/09/19 1700 warfarin tablet 4 mg (COUMADIN) 4 mg oral Once 05/09/19 0945 05/09/19 1712 05/09/19 0800 heparin (porcine) 1,000 unit/mL injection 3,000 Units Note to Pharmacy: Need two doses for double lumen HD catheter (2 orders placed) 3 mL intra-catheter Once 05/09/19 0748 05/09/19 1148 05/09/19 0800 heparin (porcine) 1,000 unit/mL injection 3,000 Units Note to Pharmacy: Need two doses for double lumen HD catheter (2 orders placed) 3 mL intra-catheter Once 05/09/19 0748 05/09/19 1147 05/08/19 1700 warfarin tablet 3 mg (COUMADIN) 3 mg oral Once 05/08/19 1213 05/08/19 1639 05/07/19 1700 warfarin tablet 3 mg (COUMADIN) 3 mg oral Once 05/07/19 1329 05/07/19 1724 05/07/19 1245 heparin (porcine) 1,000 unit/mL injection 3,000 Units Note to Pharmacy: Need two doses for double lumen HD catheter (2 orders placed) 3 mL intra-catheter Once 05/07/19 1238 05/07/19 1242 05/07/19 1245 heparin (porcine) 1,000 unit/mL injection 3,000 Units Note to Pharmacy: Need two doses for double lumen HD catheter (2 orders placed) 3 mL intra-catheter Once 05/07/19 1238 05/07/19 1243 05/07/19 1000 heparin (porcine) 100 Units/mL in D5W 250 mL infusion 0-40 Units/kg/hr ?? 100 kg (Dosing Weight) 0-40 mL/hr intravenous Continuous 05/07/19 0948 05/07/19 1000 warfarin management (COUMADIN) oral Daily 05/07/19 0949 05/07/19 0948 heparin (porcine) 1,000 unit/mL injection 6,000 Units 60 Units/kg ?? 100 kg (Dosing Weight) intravenous As needed 05/07/19 0948 05/07/19 0948 heparin (porcine) 1,000 unit/mL injection 3,000 Units 30 Units/kg ?? 100 kg (Dosing Weight) intravenous As needed 05/07/19 0948 05/06/19 1747 heparin (porcine) 100 Units/mL in D5W 250 mL infusion - ADS Override Pull Note to Pharmacy: Created by cabinet override 05/06/19 1747 05/07/19 0559 05/06/19 1744 heparin (porcine) 100 Units/mL in D5W 250 mL infusion - ADS Override Pull Note to Pharmacy: Created by cabinet override 05/06/19 1744 05/07/19 0559 INR reversal agents were not given. Warfarin Reversal Agent Administrations (last 168 hours) Vitamin K and K-Centra None FFP Administrations During Encounter (Filter: EAP GENERAL TRANSFUSE FFP Medications Shown) None Warfarin Administrations (last 168 hours) Date/Time Action Medication Dose 05/10/19 1734 Given warfarin tablet 4 mg (COUMADIN) 4 mg 05/09/19 1712 Given warfarin tablet 4 mg (COUMADIN) 4 mg 05/08/19 1639 Given warfarin tablet 3 mg (COUMADIN) 3 mg 05/07/19 1724 Given warfarin tablet 3 mg (COUMADIN) 3 mg INR (no units) Date Value Status 05/11/2019 1.6 Final 05/10/2019 1.4 Final 05/09/2019 1.2 Final 05/08/2019 1.2 Final 05/07/2019 1.2 Final A/P: Day 5 warfarin resumed for AV graft patency, INR goal 2-3. Prior home regimen per discussion with the patient was warfarin 3 mg daily. INR up to 1.6 today. No new drug interactions noted. Will continue warfarin 4 mg to assess the increase above her prior home dose and recent reduced oral intake. The pharmacist team will continue to follow patient's clinical progress daily until discharge from the hospital. Josh Rojas Pharm.D., R.Ph. Mihir Zamarripa M.D., Ph.D. - 05/10/2019 11:48 AM CDT I evaluated Ms. Wray with Leatha Henley [id number]. I confirmed the iglesias elements of the history. I agree with the findings, assessment and plan of care as outlined in the note. Mihir Zamarripa M.D., Ph.D. Paul Travis M.D., Ph.D. - 05/10/2019 10:29 AM CDT SUBJECTIVE Ms. Wray is doing well this morning. She does continue to have heartburn and had an episode of nausea and vomiting this morning. She still been able to eat the past few days but has not had a bowel movement since Sunday. Will work with her to improve her heartburn in bowel function today OBJECTIVE Vitals: Vitals signs reviewed. Stable and afebrile. Physical Exam: General: Alert and oriented, No acute distress. Neck: Supple, Non-tender. Respiratory: Lungs are clear to auscultation. Respirations are non-labored. Breath sounds are equal. Heart: Regular rate and rhythm, no murmur appreciated. Abdomen: Soft, Non-tender, no masses. Cognition and Speech: Speech clear and coherent. Functional cognition intact. Psychiatric: Cooperative, appropriate mood & affect. Extremities: Warm, well perfused, no edema. Diffuse swelling with ecchymosis over right upper extremity where graft was tunneled; compartments are all soft; palpable radial and ulnar pulses; swelling is stablized. Thrill easily appreciated with Doppler. Labs Labs reviewed. No clinically signifcant lab results. INR is 1 for this morning will discharge when she is above 2 ASSESSMENT / PLAN #1 Chronic Kidney Disease NOS #2 Obstruction Ureter #3 Chronic Failure Renal End Stage Renal Disease Dialysis Dependent (HCC) #4 Complication Dialysis Device Subsequent #5 Anticoagulant Therapy #6 Failure Renal End Stage (HCC) Plan- Hospital day #3, 4 Days Post-Op from AV graft from brachial artery to junction of the brachialaxillary vein. Will continue on aspirin and begin bridging to Coumadin. She understands that she off to be in the hospital until she is therapeutic on Coumadin. She will go to dialysis again today due to her increased fluid chest Continues on Duricef 500 mg once daily for concern of a possible soft tissue infection on right upper arm incision. Have provided her with option of Zofran every 6 hours as needed for nausea and vomiting to see if this helps. Otherwise her bowel regimen remains the same; she has voiced strong disinterest in an enema -Pain: Tylenol oxycodone -Diet: Regular -Antibiotics: Cefadroxil 500 mg stay -Cultures: None -Wound care: Continue elevating the right upper extremity as past -Drains: None -Activity: Up and walking as tolerated -DVT prophylaxis: On therapeutic heparin bridging to warfarin due to her chronic kidney disease. -Consults: Nephrology for assistance with managing chronic kidney disease/dialysis Please contact vascular surgery with any additional questions or concerns. Nora Henley APRN, C.N.P., M.S.N. - 05/10/2019 9:21 AM CDT SUBJECTIVE Ms. Wray was seen and evaluated personally by me in her hospital room. She reports that she continues to have heartburn and feeling full. She vomited her breakfast this morning and is mildly nauseous. She still has not had a bowel movement since admission. Discussed that her sodium level is low today and I believe it may be dilutional. She is willing to come down for 2.5 hours of fluid removal today with ultrafiltration. She reports that she has had increased intake as sitting on Seirra mist helps her nausea. Ms. Wray denies shortness of breath or chest pain. She has no other questions or concerns for nephrology. I have reviewed the current medication list. OBJECTIVE Admission Weight: 100 kg Current Weight: 99.3 kg VITAL SIGNS Temperature: [36 ??C-37 ??C] 37 ??C Resp Rate: [15-18] 18 Blood Pressure: (106-159)/(54-104) 159/66 SpO2: [91 %-97 %] 95 % Pulse Rate: [62-71] 62 Intake/Output Summary (Last 24 hours) at 05/10/2019920 Last data filed at 05/10/2019 0400 Gross per 24 hour Intake 1780 ml Output 3253 ml Net -1473 ml PHYSICAL EXAM General: Ms. Wray is alert, cooperative and pleasant sitting at the edge of her hospital bed inno acute distress. Heart: Regular rate and rhythm. Normal S1-S2. No rubs, gallops or murmurs appreciated. Lungs: Diminished lung sounds on anterior lung wilde bilaterally. Extremities: Mild pitting edema of the lower extremities bilaterally. Vessels: Right AV graft with a palpable thrill and easily auscultated bruit. Mildly swollen. Ecchymosis around incision. Mildly tender to palpation. Right tunneled dialysis catheter in place with slight ecchymosis surrounding insertion site. Site appears dry and not erythematous. Nontender to palpation. DIAGNOSTICS Lab results last 24 hours: Recent Results (from the past 24 hour(s)) Iron and Total Iron-Binding Capacity Collection Time: 05/09/19 11:01 AM Result Value Iron 68 Total Iron Binding Capacity 247 (L) Percent Saturation 28 Ferritin Collection Time: 05/09/19 11:01 AM Result Value Ferritin, S 659 (H) CBC without Differential Collection Time: 05/10/19 6:18 AM Result Value Hemoglobin 8.3 (L) Hematocrit 26.8 (L) Erythrocytes 2.85 (L) MCV 94.0 RBC Distrib Width 14.5 Platelet Count 109 (L) Leukocytes 9.3 PT (Prothrombin Time) with INR Collection Time: 05/10/19 6:18 AM Result Value Prothrombin Time, P 15.2 (H) INR 1.4 BMP (Basic Metabolic Panel) Collection Time: 05/10/19 6:18 AM Result Value Potassium, S 4.1 Sodium, S 132 (L) Chloride, S 92 (L) Bicarbonate, S 27 Anion Gap 13 Bld Urea Nitrog(BUN), S 27 (H) Creatinine, S 5.03 (H) eGFR-Non Black <15 (L) eGFR-Black <15 (L) Calcium, Total, S 9.3 Glucose, S 101 Heparin Anti-Xa Assay Collection Time: 05/10/19 6:18 AM Result Value Heparin Anti-Xa, P 0.34 ASSESSMENT / PLAN #1 End stage renal disease related to hypertensive nephrosclerosis and in the setting of failed renal transplant, maintained on incenter hemodialysis #2 Status post right brachioaxillary AV graft placement May 06, 2019 #3 Chronic anemia related to end stage renal disease #4 Secondary hyperparathyroidism related to chronic renal failyure #5 Hypertension #6 Multiple issues with dialysis access patency including thrombosed left upper extremity AV fistulaand multiple non functioning tunneled dialysis catheters, on warfarin Ms. Wray dialyzed yesterday for 3.5 hours with a net removal of 3 L. She is mildly hyponatremictoday with a sodium level of 132g/dL. She will come down for 2.5 hours of ultrafiltration today witha net removal goal of 2 L of fluid. Would recommend rechecking a CBC and electrolyte panel tomorrow to see if this was dilutional. She is iron replete per the labs done yesterday. I am wondering if her small drop in hemoglobin is partially due to fluid as she is hyponatremic today. We will see if this improves with fluid pull. This was discussed with the primary team. Continued recommendations: -- Ok to continue with a general diet for now. Ms. Wray understands that we will need to reinstate dietary restrictions if she is hyperkalemic again tomorrow. -- Continue Dialyvite, one tablet each evening -- Hectorol will not be administered in the inpatient setting due to not being on the [facility] formulary. This will be resumed in the outpatient dialysis setting. -- Continue outpatient immunosuppressive regimen which includes mycophenolate 250 mg twice daily, prednisone 5 mg daily, and tacrolimus 2 mg twice daily. -- Ms. Wray will need to be set up for follow up with an anticoagulation clinic in [facility] at the time of discharge. -- Please continue phosphorus binders of sevelamer 800 mg with breakfast and Tums 1000 mg (2 regularstrength tablets) with lunch and dinner. Per Ms. Wray, this is the regimen she has been using at home. -- Ensure cefadroxil is administered after dialysis on dialysis days as this medication is heavily dialyzable. Ms. Wray is allergic to epoetin natalia and is hoping to undergo a kidney transplant again, so we want to avoid the need for transfusions, if at all possible. New recommendations: -- Ultrafiltration for 2.5 hours today with a net fluid removal goal of 2 L -- Dialysis next on Sunday Thank you for the opportunity to participate in 's care. For questions or concerns, please page the Nephrology [employer] O[employer]/PA pager ([phone]). Josh Rojas, Pharm.D., R.Ph. - 05/10/2019 8:27 AM CDT Warfarin Dosing Progress Note: More information: Shabnam Wray is a 58 y.o. female who was admitted to the hospital on 05/06/2019. Hospital Pharmacy has been consulted for inpatient warfarin management and monitoring. Warfarin Indication: Other (Comment) Other indication (comments): AV graft Type of therapy: Resume Prior average daily dose: 3 Comorbidities: No known risk Are any of these comorbidities new with admission? No Are there any new medication interactions with admission? Yes Target INR: 2 - 3 Day of therapy: 3 Drug interactions include the following: Strong Potentiator (From admission, onward) None Moderate Potentiators (From admission, onward) Start Dose/Rate Route Frequency Ordered Stop 05/06/19 2100 acetaminophen tablet 1,000 mg (TYLENOL) 1,000 mg oral 4 times daily 05/06/19 1905 Potentiating (From admission, onward) Start Dose/Rate Route Frequency Ordered Stop 05/09/19 0900 cefadroxil capsule 500 mg (DURICEF) 500 mg oral Daily 05/09/19 0803 05/06/19 2100 acetaminophen tablet 1,000 mg (TYLENOL) 1,000 mg oral 4 times daily 05/06/19 1905 Enzyme Inducers (From admission, onward) None Binders (From admission, onward) Start Dose/Rate Route Frequency Ordered Stop 05/09/19 0900 sevelamer tablet 800 mg (RENAGEL) 800 mg oral Daily 05/08/19 1020 Vitamin K-Containing Medications (168h ago, onward) None Antiplatelets & Anticoagulants (168h ago, onward) Start Dose/Rate Route Frequency Ordered Stop 05/09/19 1700 warfarin tablet 4 mg (COUMADIN) 4 mg oral Once 05/09/19 0945 05/09/19 1712 05/09/19 0800 heparin (porcine) 1,000 unit/mL injection 3,000 Units Note to Pharmacy: Need two doses for double lumen HD catheter (2 orders placed) 3 mL intra-catheter Once 05/09/19 0748 05/09/19 1148 05/09/19 0800 heparin (porcine) 1,000 unit/mL injection 3,000 Units Note to Pharmacy: Need two doses for double lumen HD catheter (2 orders placed) 3 mL intra-catheter Once 05/09/19 0748 05/09/19 1147 05/08/19 1700 warfarin tablet 3 mg (COUMADIN) 3 mg oral Once 05/08/19 1213 05/08/19 1639 05/07/19 1700 warfarin tablet 3 mg (COUMADIN) 3 mg oral Once 05/07/19 1329 05/07/19 1724 05/07/19 1245 heparin (porcine) 1,000 unit/mL injection 3,000 Units Note to Pharmacy: Need two doses for double lumen HD catheter (2 orders placed) 3 mL intra-catheter Once 05/07/19 1238 05/07/19 1242 05/07/19 1245 heparin (porcine) 1,000 unit/mL injection 3,000 Units Note to Pharmacy: Need two doses for double lumen HD catheter (2 orders placed) 3 mL intra-catheter Once 05/07/19 1238 05/07/19 1243 05/07/19 1000 heparin (porcine) 100 Units/mL in D5W 250 mL infusion 0-40 Units/kg/hr ?? 100 kg (Dosing Weight) 0-40 mL/hr intravenous Continuous 05/07/19 0948 05/07/19 1000 warfarin management (COUMADIN) oral Daily 05/07/19 0949 05/07/19 0948 heparin (porcine) 1,000 unit/mL injection 6,000 Units 60 Units/kg ?? 100 kg (Dosing Weight) intravenous As needed 05/07/19 0948 05/07/19 0948 heparin (porcine) 1,000 unit/mL injection 3,000 Units 30 Units/kg ?? 100 kg (Dosing Weight) intravenous As needed 05/07/19 0948 05/06/19 1747 heparin (porcine) 100 Units/mL in D5W 250 mL infusion - ADS Override Pull Note to Pharmacy: Created by heaven override 05/06/19 1747 05/07/19 0559 05/06/19 1744 heparin (porcine) 100 Units/mL in D5W 250 mL infusion - ADS Override Pull Note to Pharmacy: Created by heaven override 05/06/19 1744 05/07/19 0559 INR reversal agents were not given. Warfarin Reversal Agent Administrations (last 168 hours) Vitamin K and K-Centra None FFP Administrations During Encounter (Filter: EAP GENERAL TRANSFUSE FFP Medications Shown) None Warfarin Administrations (last 168 hours) Date/Time Action Medication Dose 05/09/19 1712 Given warfarin tablet 4 mg (COUMADIN) 4 mg 05/08/19 1639 Given warfarin tablet 3 mg (COUMADIN) 3 mg 05/07/19 1724 Given warfarin tablet 3 mg (COUMADIN) 3 mg INR (no units) Date Value Status 05/10/2019 1.4 Final 05/09/2019 1.2 Final 05/08/2019 1.2 Final 05/07/2019 1.2 Final A/P: Day 4 warfarin resumed for AV graft patency, INR goal 2-3. Prior home regimen per discussion with the patient was warfarin 3 mg daily. INR up to 1.4 today. No new drug interactions noted. Will continue warfarin 4 mg for a second day to assess the increase above her prior home dose. The pharmacistteam will continue to follow patient's clinical progress daily until discharge from the hospital. Josh Rojas, PharmDaviD., R.Ph. Mihir Zamarripa M.D., Ph.D. - 05/09/2019 10:28 AM CDT I evaluated Ms. Wray with Ms. Fisher [id number]. I confirmed the iglesias elements of the history. I agree with the findings, assessment and plan of care as outlined in the note. Mihir C Fervenza, M.D., Ph.D. Jon Serrano Pharm.D., R.Ph. - 05/09/2019 9:44 AM CDT Warfarin Dosing Progress Note: More information: Shabnam Wray is a 58 y.o. female who was admitted to the hospital on 05/06/2019. Hospital Pharmacy has been consulted for inpatient warfarin management and monitoring. Warfarin Indication: Other (Comment) Other indication (comments): AV graft Type of therapy: Resume Prior average daily dose: 3 Comorbidities: No known risk Are any of these comorbidities new with admission? No Are there any new medication interactions with admission? Yes Target INR: 2 - 3 Day of therapy: 3 Drug interactions include the following: Strong Potentiator (From admission, onward) None Moderate Potentiators (From admission, onward) Start Dose/Rate Route Frequency Ordered Stop 05/06/19 2100 acetaminophen tablet 1,000 mg (TYLENOL) 1,000 mg oral 4 times daily 05/06/19 1905 Potentiating (From admission, onward) Start Dose/Rate Route Frequency Ordered Stop 05/09/19 0900 cefadroxil capsule 500 mg (DURICEF) 500 mg oral Daily 05/09/19 0803 05/06/19 2100 acetaminophen tablet 1,000 mg (TYLENOL) 1,000 mg oral 4 times daily 05/06/19 1905 Enzyme Inducers (From admission, onward) None Binders (From admission, onward) Start Dose/Rate Route Frequency Ordered Stop 05/09/19 0900 sevelamer tablet 800 mg (RENAGEL) 800 mg oral Daily 05/08/19 1020 Vitamin K-Containing Medications (168h ago, onward) None Antiplatelets & Anticoagulants (168h ago, onward) Start Dose/Rate Route Frequency Ordered Stop 05/09/19 0800 heparin (porcine) 1,000 unit/mL injection 3,000 Units Note to Pharmacy: Need two doses for double lumen HD catheter (2 orders placed) 3 mL intra-catheter Once 05/09/19 0748 05/09/19 0800 heparin (porcine) 1,000 unit/mL injection 3,000 Units Note to Pharmacy: Need two doses for double lumen HD catheter (2 orders placed) 3 mL intra-catheter Once 05/09/19 0748 05/08/19 1700 warfarin tablet 3 mg (COUMADIN) 3 mg oral Once 05/08/19 1213 05/08/19 1639 05/07/19 1700 warfarin tablet 3 mg (COUMADIN) 3 mg oral Once 05/07/19 1329 05/07/19 1724 05/07/19 1245 heparin (porcine) 1,000 unit/mL injection 3,000 Units Note to Pharmacy: Need two doses for double lumen HD catheter (2 orders placed) 3 mL intra-catheter Once 05/07/19 1238 05/07/19 1242 05/07/19 1245 heparin (porcine) 1,000 unit/mL injection 3,000 Units Note to Pharmacy: Need two doses for double lumen HD catheter (2 orders placed) 3 mL intra-catheter Once 05/07/19 1238 05/07/19 1243 05/07/19 1000 heparin (porcine) 100 Units/mL in D5W 250 mL infusion 0-40 Units/kg/hr ?? 100 kg (Dosing Weight) 0-40 mL/hr intravenous Continuous 05/07/19 0948 05/07/19 1000 warfarin management (COUMADIN) oral Daily 05/07/19 0949 05/07/19 0948 heparin (porcine) 1,000 unit/mL injection 6,000 Units 60 Units/kg ?? 100 kg (Dosing Weight) intravenous As needed 05/07/19 0948 05/07/19 0948 heparin (porcine) 1,000 unit/mL injection 3,000 Units 30 Units/kg ?? 100 kg (Dosing Weight) intravenous As needed 05/07/19 0948 05/06/19 1747 heparin (porcine) 100 Units/mL in D5W 250 mL infusion - ADS Override Pull Note to Pharmacy: Created by cabinet override 05/06/19 17405/07/19 0559 05/06/19 1744 heparin (porcine) 100 Units/mL in D5W 250 mL infusion - ADS Override Pull Note to Pharmacy: Created by cabinet override 05/06/19 17405/07/19 0559 INR reversal agents were not given. Warfarin Reversal Agent Administrations (last 168 hours) Vitamin K and K-Centra None FFP Administrations During Encounter (Filter: EAP GENERAL TRANSFUSE FFP Medications Shown) None Warfarin Administrations (last 168 hours) Date/Time Action Medication Dose 05/08/19 1639 Given warfarin tablet 3 mg (COUMADIN) 3 mg 05/07/19 1724 Given warfarin tablet 3 mg (COUMADIN) 3 mg INR (no units) Date Value Status 05/09/2019 1.2 Final 05/08/2019 1.2 Final 05/07/2019 1.2 Final A/P: Day 3 warfarin resumed for AV graft patency, INR goal 2-3. Prior home regimen per discussion with the patient was warfarin 3 mg daily. INR unchanged at 1.2 today. No new drug interactions noted. Will increase to warfarin 4 mg tonight. The pharmacist team will continue to follow patient's clinicalprogress daily until discharge from the hospital. Jon Serrano, PharmDaviD., R.Ph. Deanne Fisher APRN, C.N.P., M.S.N. - 05/09/2019 9:41 AM CDT SUBJECTIVE Ms. Wray was seen and examined while receving intermittent hemodialysis. She denies shortness of breath and is tolerating the dialysis well. Her main complaint today is that she continues to have significant heartburn. She has still not had a bowel movement during this admission. I have reviewed the current medication list. OBJECTIVE Admission Weight: 100 kg Current Weight: 102 kg VITAL SIGNS Temperature: [36.4 ??C-36.7 ??C] 36.5 ??C Resp Rate: [14-18] 14 Blood Pressure: (142-166)/(68-105) 159/68 SpO2: [87 %-98 %] 97 % Pulse Rate: [61-80] 62 Intake/Output Summary (Last 24 hours) at 05/09/2019 0941 Last data filed at 05/09/2019 0940 Gross per 24 hour Intake 590 ml Output 100 ml Net 490 ml PHYSICAL EXAM General: Alert and oriented, in no acute distress Heart: Regular rate and rhythm Lungs: Clear to auscultation in the anterior lung wilde bilaterally Extremities: There is no edema of the lower extremities bilaterally Vessels: Right EJ tunneled hemodialysis catheter is working well for dialysis with a blood flow rateof 350 mL/min. Right upper extremity AV graft has a bruit and thrill. There is serosanguinous drainage from the distal incision. There is significant ecchymosis, moderate edema and pain. DIAGNOSTICS I have reviewed labs. ASSESSMENT / PLAN #1 End stage renal disease related to hypertensive nephrosclerosis and in the setting of failed renal transplant, maintained on incenter hemodialysis #2 Status post right brachioaxillary AV graft placement May 06, 2019 #3 Chronic anemia related to end stage renal disease #4 Secondary hyperparathyroidism related to chronic renal failyure #5 Hypertension #6 Multiple issues with dialysis access patency including thrombosed left upper extremity AV fistulaand multiple non functioning tunneled dialysis catheters, on warfarin Ms. Wray is dialyzing today for 3.5 hours with a net removal of 3 L. She is dialyzing with a 2 mEq/L potassium and 2.5 mEq/L calcium. Her next dialysis is planned for Sunday. Continued recommendations: -- Ok to continue with a general diet for now. Ms. Wray understands that we will need to reinstate dietary restrictions if she is hyperkalemic again tomorrow. -- Continue Dialyvite, one tablet each evening -- Hectorol will not be administered in the inpatient setting due to not being on the [facility] formulary. This will be resumed in the outpatient dialysis setting. -- Continue outpatient immunosuppressive regimen which includes mycophenolate 250 mg twice daily, prednisone 5 mg daily, and tacrolimus 2 mg twice daily. -- Ms. Wray will need to be set up for follow up with an anticoagulation clinic in [facility] at the time of discharge. -- Please continue phosphorus binders of sevelamer 800 mg with breakfast and Tums 1000 mg (2 regularstrength tablets) with lunch and dinner. Per Ms. Wray, this is the regimen she has been using at home. New recommendations: -- Consider MiraLax or Senna-S for constipation management. I have also encouraged Ms. Wray to be up walking more today. -- Please recall that magnesium and aluminum containing products should not be administered for heartburn management in the setting of Ms. Wray having end stage renal disease. -- May consider omeprazole for ongoing GERD symptom management. -- Ensure cefadroxil is administered after dialysis on dialysis days as this medication is heavily dialyzable. -- Hemoglobin has decreased by nearly 1 gm since yesterday. We will obtain iron studies during dialysis today to determine if there is a need for IV iron. Ms. Wray is allergic to epoetin natalia and is hoping to undergo a kidney transplant again, so we want to avoid the need for transfusions, if at all possible. Thank you for the opportunity to participate in 's care. For questions or concerns, please page the Nephrology [employer] OPERATOR/PA pager ([phone]). TOT Paul Travis M.D., Ph.D. - 05/09/2019 8:07 AM CDT SUBJECTIVE Ms. Wray is doing well this morning. There has been some a moderate amount of drainage from hermore distal incision on her right arm. It has been mostly serosanguineous. She continues to have swelling, ecchymosis and pain over the graft site. OBJECTIVE Vitals: Vitals signs reviewed. Stable and afebrile. Physical Exam: General: Alert and oriented, No acute distress. Neck: Supple, Non-tender. Respiratory: Lungs are clear to auscultation. Respirations are non-labored. Breath sounds are equal. Heart: Regular rate and rhythm, no murmur appreciated. Abdomen: Soft, Non-tender, no masses. Cognition and Speech: Speech clear and coherent. Functional cognition intact. Psychiatric: Cooperative, appropriate mood & affect. Extremities: Warm, well perfused, no edema. Diffuse swelling with ecchymosis over right upper extremity where graft was tunneled; compartments are all soft; palpable radial and ulnar pulses; swelling is stablized. Thrill easily appreciated with Doppler. Labs Labs reviewed. No clinically signifcant lab results. ASSESSMENT / PLAN #1 Chronic Kidney Disease NOS #2 Obstruction Ureter #3 Chronic Failure Renal End Stage Renal Disease Dialysis Dependent (HCC) #4 Complication Dialysis Device Subsequent #5 Anticoagulant Therapy #6 Failure Renal End Stage (HCC) Plan- Hospital day #2, 3 Days Post-Op from AV graft from brachial artery to junction of the brachialaxillary vein. Will continue on aspirin and begin bridging to Coumadin. She understands that she off to be in the hospital until she is therapeutic on Coumadin. Likely dialysis on Sunday pain. Due to her increased drainage of the distal right incision will start her on cefadroxil 500 mg once daily to be taken for the next week. -Pain: Tylenol oxycodone -Diet: Regular -Antibiotics: Cefadroxil 500 mg stay -Cultures: None -Wound care: Continue elevating the right upper extremity as past -Drains: None -Activity: Up and walking as tolerated -DVT prophylaxis: On therapeutic heparin bridging to warfarin due to her chronic kidney disease. -Consults: Nephrology for assistance with managing chronic kidney disease/dialysis Please contact vascular surgery with any additional questions or concerns. Elena Mitchell Pharm.D., R.Ph. - 05/08/2019 12:11 PM CDT Warfarin Dosing Progress Note: More information: Shabnam Wray is a 58 y.o. female who was admitted to the hospital on 05/06/2019. Hospital Pharmacy has been consulted for inpatient warfarin management and monitoring. Warfarin Indication: Other (Comment) Other indication (comments): AV graft Type of therapy: Resume Prior average daily dose: 3 Comorbidities: No known risk Are any of these comorbidities new with admission? No Are there any new medication interactions with admission? Yes Target INR: 2 - 3 Day of therapy: 2 Drug interactions include the following: Strong Potentiator (From admission, onward) None Moderate Potentiators (From admission, onward) Start Dose/Rate Route Frequency Ordered Stop 05/06/19 2100 acetaminophen tablet 1,000 mg (TYLENOL) 1,000 mg oral 4 times daily 05/06/19 190 Potentiating (From admission, onward) Start Dose/Rate Route Frequency Ordered Stop 05/06/19 2100 acetaminophen tablet 1,000 mg (TYLENOL) 1,000 mg oral 4 times daily 05/06/19 190 Enzyme Inducers (From admission, onward) None Binders (From admission, onward) Start Dose/Rate Route Frequency Ordered Stop 05/09/19 0900 sevelamer tablet 800 mg (RENAGEL) 800 mg oral Daily 05/08/19 1020 Vitamin K-Containing Medications (168h ago, onward) None Antiplatelets & Anticoagulants (168h ago, onward) Start Dose/Rate Route Frequency Ordered Stop 05/07/19 1700 warfarin tablet 3 mg (COUMADIN) 3 mg oral Once 05/07/19 1329 05/07/19 1724 05/07/19 1245 heparin (porcine) 1,000 unit/mL injection 3,000 Units Note to Pharmacy: Need two doses for double lumen HD catheter (2 orders placed) 3 mL intra-catheter Once 05/07/19 1238 05/07/19 1242 05/07/19 1245 heparin (porcine) 1,000 unit/mL injection 3,000 Units Note to Pharmacy: Need two doses for double lumen HD catheter (2 orders placed) 3 mL intra-catheter Once 05/07/19 1238 05/07/19 1243 05/07/19 1000 heparin (porcine) 100 Units/mL in D5W 250 mL infusion 0-40 Units/kg/hr ?? 100 kg (Dosing Weight) 0-40 mL/hr intravenous Continuous 05/07/19 0948 05/07/19 1000 warfarin management (COUMADIN) oral Daily 05/07/19 0949 05/07/19 0948 heparin (porcine) 1,000 unit/mL injection 6,000 Units 60 Units/kg ?? 100 kg (Dosing Weight) intravenous As needed 05/07/19 0948 05/07/19 0948 heparin (porcine) 1,000 unit/mL injection 3,000 Units 30 Units/kg ?? 100 kg (Dosing Weight) intravenous As needed 05/07/19 0948 05/06/19 1747 heparin (porcine) 100 Units/mL in D5W 250 mL infusion - ADS Override Pull Note to Pharmacy: Created by cabinet override 05/06/19 17405/07/19 0559 05/06/19 1744 heparin (porcine) 100 Units/mL in D5W 250 mL infusion - ADS Override Pull Note to Pharmacy: Created by cabinet override 05/06/19 17405/07/19 0559 INR reversal agents were not given. Warfarin Reversal Agent Administrations (last 168 hours) Vitamin K and K-Centra None FFP Administrations During Encounter (Filter: EAP GENERAL TRANSFUSE FFP Medications Shown) None Warfarin Administrations (last 168 hours) Date/Time Action Medication Dose 05/07/19 1724 Given warfarin tablet 3 mg (COUMADIN) 3 mg INR (no units) Date Value Status 05/08/2019 1.2 Final 05/07/2019 1.2 Final A/P: Day 2 warfarin resumed for AV graft patency, INR goal 2-3. Prior home regimen per discussion with the patient was warfarin 3 mg daily. INR unchanged at 1.2 today. No new drug interactions noted. Will repeat warfarin 3 mg tonight. The pharmacist team will continue to follow patient's clinical progress daily until discharge from the hospital. Elena Mitchell, Pharm.D., R.Ph. Contact [phone] with any questions about this note. Deanne Fisher APRN, C.N.P., M.S.N. - 05/08/2019 8:17 AM CDT SUBJECTIVE Ms. Wray was seen and examined in her room. She is accompanied by her father She underwent dialysis yesterday with a net removal of 2.8 L and a post dialysis weight of 98.8 kg, which she toleratedwell. Today, Ms. Wray denies shortness of breath. She continues to await a therapeutic INR prior to being able to discharge. She tells me she is having significant heart burn today which has not improved with taking Tums. She has not had a bowel movement since being hospitalized, which may be contributing to her symptoms. I have reviewed the current medication list. OBJECTIVE Admission Weight: 100 kg Current Weight: 98.8 kg VITAL SIGNS Temperature: [36.4 ??C-36.7 ??C] 36.4 ??C Heart Rate: [58-70] 66 Resp Rate: [16-18] 18 Blood Pressure: (101-163)/(59-83) 147/76 SpO2: [93 %-99 %] 97 % Pulse Rate: [60-77] 69 Intake/Output Summary (Last 24 hours) at 05/08/2019 0817 Last data filed at 05/07/2019 2200 Gross per 24 hour Intake 655.09 ml Output 3055 ml Net -2399.91 ml PHYSICAL EXAM General: Alert and oriented, in no acute distress Heart: Regular rate and rhythm Lungs: Clear to auscultation in the anterior lung wilde bilaterally Extremities: There is no edema of the lower extremities bilaterally Vessels: Right EJ tunneled hemodialysis catheter is without erythema or drainage of the exit site. There continues to be mild ecchymosis and tenderness to palpation. Right upper extremity AV graft has a bruit and thrill. There is significant ecchymosis of the right upper extremity. DIAGNOSTICS I have reviewed labs. ASSESSMENT / PLAN #1 End stage renal disease related to hypertensive nephrosclerosis and in the setting of failed renal transplant, maintained on incenter hemodialysis #2 Status post right brachioaxillary AV graft placement May 06, 2019 #3 Chronic anemia related to end stage renal disease #4 Secondary hyperparathyroidism related to chronic renal failyure #5 Hypertension #6 Multiple issues with dialysis access patency including thrombosed left upper extremity AV fistulaand multiple non functioning tunneled dialysis catheters, on warfarin Ms. Wray has no acute indications for dialysis today. Her next dialysis is planned for tomorrow. Continued recommendations: -- Ok to continue with a general diet for now. Ms. Wray understands that we will need to reinstate dietary restrictions if she is hyperkalemic again tomorrow. -- Continue Dialyvite, one tablet each evening -- Hectorol will not be administered in the inpatient setting due to not being on the [facility] formulary. This will be resumed in the outpatient dialysis setting. -- Continue outpatient immunosuppressive regimen which includes mycophenolate 250 mg twice daily, prednisone 5 mg daily, and tacrolimus 2 mg twice daily. -- Ms. Wray will need to be set up for follow up with an anticoagulation clinic in [facility] at the time of discharge. New recommendations: -- Please check BMP, phosphorus and CBC tomorrow. -- Please change phosphorus binders to sevelamer 800 mg with breakfast and Tums 1000 mg (2 regular strength tablets) with lunch and dinner. Per Ms. Wray, this is the regimen she has been using at home. -- Consider MiraLax or Senna-S for constipation management. I have also encouraged Ms. Wray to be up walking more today. -- Please recall that magnesium and aluminum containing products should not be administered for heartburn management in the setting of Ms. Wray having end stage renal disease. Thank you for the opportunity to participate in 's care. For questions or concerns, please page the Nephrology A WO[employer] LAT[employer] OPERATOR/PA pager ([phone]). Paul Travis M.D., Ph.D. - 05/08/2019 7:14 AM CDT SUBJECTIVE Ms. Wray is doing well this morning. She is able to undergo dialysis yesterday. Ultrasound yesterday showed patent graft with lobe approximately 820 centimeters/second. Continues on warfarin INR this morning was 1.2 understands she will be in the hospital until she is therapeutic. OBJECTIVE Vitals: Vitals signs reviewed. Stable and afebrile. Physical Exam: General: Alert and oriented, No acute distress. Neck: Supple, Non-tender. Respiratory: Lungs are clear to auscultation. Respirations are non-labored. Breath sounds are equal. Heart: Regular rate and rhythm, no murmur appreciated. Abdomen: Soft, Non-tender, no masses. Cognition and Speech: Speech clear and coherent. Functional cognition intact. Psychiatric: Cooperative, appropriate mood & affect. Extremities: Warm, well perfused, no edema. Diffuse swelling with ecchymosis over right upper extremity where graft was tunneled; compartments are all soft; palpable radial and ulnar pulses; swelling is stablized. Thrill easily appreciated with Doppler. Labs Labs reviewed. No clinically signifcant lab results. ASSESSMENT / PLAN #1 Chronic Kidney Disease NOS #2 Obstruction Ureter #3 Chronic Failure Renal End Stage Renal Disease Dialysis Dependent (HCC) #4 Complication Dialysis Device Subsequent #5 Anticoagulant Therapy #6 Failure Renal End Stage (HCC) Plan- Hospital day #1, 2 Days Post-Op from AV graft from brachial artery to junction of the brachialaxillary vein. Will continue on aspirin and begin bridging to Coumadin. She understands that she off to be in the hospital until she is therapeutic on Coumadin. Likely dialysis tomorrow. -Pain: Tylenol oxycodone -Diet: Regular -Antibiotics: None -Cultures: None -Wound care: Continue elevating the right upper extremity as past -Drains: None -Activity: Up and walking as tolerated -DVT prophylaxis: On therapeutic heparin bridging to warfarin due to her chronic kidney disease. -Consults: Nephrology for assistance with managing chronic kidney disease/dialysis Please contact vascular surgery with any additional questions or concerns. Elena Mitchell Pharm.D., R.Ph. - 05/07/2019 1:27 PM CDT Warfarin Dosing Progress Note: More information: Shabnam Wray is a 58 y.o. female who was admitted to the hospital on 05/06/2019. Hospital Pharmacy has been consulted for inpatient warfarin management and monitoring. Warfarin Indication: Other (Comment) Other indication (comments): AV graft Type of therapy: Resume Prior average daily dose: 3 Comorbidities: No known risk Are any of these comorbidities new with admission? No Are there any new medication interactions with admission? Yes Target INR: 2 - 3 Day of therapy: 1 Drug interactions include the following: Strong Potentiator (From admission, onward) None Moderate Potentiators (From admission, onward) Start Dose/Rate Route Frequency Ordered Stop 05/06/19 2100 acetaminophen tablet 1,000 mg (TYLENOL) 1,000 mg oral 4 times daily 05/06/19 190 Potentiating (From admission, onward) Start Dose/Rate Route Frequency Ordered Stop 05/06/19 2100 acetaminophen tablet 1,000 mg (TYLENOL) 1,000 mg oral 4 times daily 05/06/19 190 Enzyme Inducers (From admission, onward) None Binders (From admission, onward) Start Dose/Rate Route Frequency Ordered Stop 05/07/19 0800 sevelamer tablet 800 mg (RENVELA) 800 mg oral 3 times daily with meals 05/06/19 19007/19/19 0759 Vitamin K-Containing Medications (168h ago, onward) None Antiplatelets & Anticoagulants (168h ago, onward) Start Dose/Rate Route Frequency Ordered Stop 05/07/19 1245 heparin (porcine) 1,000 unit/mL injection 3,000 Units Note to Pharmacy: Need two doses for double lumen HD catheter (2 orders placed) 3 mL intra-catheter Once 05/07/19 1238 05/07/19 1242 05/07/19 1245 heparin (porcine) 1,000 unit/mL injection 3,000 Units Note to Pharmacy: Need two doses for double lumen HD catheter (2 orders placed) 3 mL intra-catheter Once 05/07/19 1238 05/07/19 1243 05/07/19 1000 heparin (porcine) 100 Units/mL in D5W 250 mL infusion 0-40 Units/kg/hr ?? 100 kg (Dosing Weight) 0-40 mL/hr intravenous Continuous 05/07/19 0948 05/07/19 1000 warfarin management (COUMADIN) oral Daily 05/07/19 0949 05/07/19 0948 heparin (porcine) 1,000 unit/mL injection 6,000 Units 60 Units/kg ?? 100 kg (Dosing Weight) intravenous As needed 05/07/19 0948 05/07/19 0948 heparin (porcine) 1,000 unit/mL injection 3,000 Units 30 Units/kg ?? 100 kg (Dosing Weight) intravenous As needed 05/07/19 0948 05/06/19 1747 heparin (porcine) 100 Units/mL in D5W 250 mL infusion - ADS Override Pull Note to Pharmacy: Created by heaven override 05/06/19 1747 05/07/19 0559 05/06/19 1744 heparin (porcine) 100 Units/mL in D5W 250 mL infusion - ADS Override Pull Note to Pharmacy: Created by cabinet override 05/06/19 1744 05/07/19 0559 INR reversal agents were not given. Warfarin Reversal Agent Administrations (last 168 hours) Vitamin K and K-Centra None FFP Administrations During Encounter (Filter: EAP GENERAL TRANSFUSE FFP Medications Shown) None Warfarin Administrations (last 168 hours) None INR (no units) Date Value Status 05/07/2019 1.2 Final A/P: Warfarin resuming for AV graft patency, INR goal 2-3. Prior home regimen per discussion with the patient was warfarin 3 mg daily. INR 1.2 today. No new significant drug interactions noted. Will resume home dose of warfarin 3 mg tonight. The pharmacist team will continue to follow patient's clinical progress daily until discharge from the hospital. Elena Mitchell Pharm.D., R.Ph. Contact [phone] with any questions about this note. Mihir Zamarripa M.D., Ph.D. - 05/07/2019 10:33 AM CDT I evaluated Ms. Wray with Deanne Shelton [id number]. I confirmed the iglesias elements of the history. I agree with the findings, assessment and plan of care as outlined in the note. Mihir Zamarripa M.D., Ph.D. Paul Travis M.D., Ph.D. - 05/07/2019 8:45 AM CDT SUBJECTIVE Ms. Wray is doing well this morning. We discussed the nature of her surgery to include the reasoning behind proceeding with a graft versus an AV fistula due to her complicated anatomy. She also understands that she off to remain in the hospital until she is therapeutic on warfarin. She voiced concern about receiving dialysis we assured her that we would like her industrial safety and health technician know about her current status and set up dialysis while she is hospitalized. OBJECTIVE Vitals: Vitals signs reviewed. Stable and afebrile. Physical Exam: General: Alert and oriented, No acute distress. Neck: Supple, Non-tender. Respiratory: Lungs are clear to auscultation. Respirations are non-labored. Breath sounds are equal. Heart: Regular rate and rhythm, no murmur appreciated. Abdomen: Soft, Non-tender, no masses. Cognition and Speech: Speech clear and coherent. Functional cognition intact. Psychiatric: Cooperative, appropriate mood & affect. Extremities: Warm, well perfused, no edema. Diffuse swelling with ecchymosis over right upper extremity where graft was tunneled; compartments are all soft; palpable radial and ulnar pulses; there is apalpable thrill over the graft Labs Labs reviewed. No clinically signifcant lab results. ASSESSMENT / PLAN #1 Obstruction Ureter #2 Chronic Failure Renal End Stage Renal Disease Dialysis Dependent (HCC) #3 Complication Dialysis Device Subsequent #4 Anticoagulant Therapy #5 Failure Renal End Stage (HCC) Plan- Hospital day #0, 1 Day Post-Op from AV graft from brachial artery to junction of the brachial axillary vein. Plan today is to work with Nephrology to get her to dialysis. Will continue on aspirin and begin bridging to Coumadin. She understands that she off to be in the hospital until she is therapeutic on Coumadin. -Pain: Tylenol oxycodone -Diet: Regular -Antibiotics: None -Cultures: None -Wound care: Continue elevating the right upper extremity as past -Drains: None -Activity: Up and walking as tolerated -DVT prophylaxis: On therapeutic heparin bridging to warfarin due to her chronic kidney disease. -Consults: Nephrology for assistance with managing chronic kidney disease/dialysis Please contact vascular surgery with any additional questions or concerns. Paul Travis M.D., Ph.D. - 05/06/2019 7:51 AM CDT SUBJECTIVE Ms. Wray is doing well this morning. Her heartburn continues to bother but she is no longer feeling nauseous and has had several bowel movements since this weekend. She does still have increased tenderness over the distal aspect of her graft/the incision which continues to drain. Her INR is therapeutic today at 2.1 so we will plan on discharging her. OBJECTIVE Vitals: Vitals signs reviewed. Stable and afebrile. Physical Exam: General: Alert and oriented, No acute distress. Neck: Supple, Non-tender. Respiratory: Lungs are clear to auscultation. Respirations are non-labored. Breath sounds are equal. Heart: Regular rate and rhythm, no murmur appreciated. Abdomen: Soft, Non-tender, no masses. Cognition and Speech: Speech clear and coherent. Functional cognition intact. Psychiatric: Cooperative, appropriate mood & affect. Extremities: Warm, well perfused, no edema. Diffuse swelling with ecchymosis over right upper extremity where graft was tunneled; compartments are all soft; palpable radial and ulnar pulses; swelling is stablized. Thrill easily appreciated with Doppler. Labs Labs reviewed. No clinically signifcant lab results. INR is 2.1 ASSESSMENT / PLAN #1 Chronic Kidney Disease NOS #2 Obstruction Ureter #3 Chronic Failure Renal End Stage Renal Disease Dialysis Dependent (HCC) #4 Complication Dialysis Device Subsequent #5 Anticoagulant Therapy #6 Failure Renal End Stage (HCC) Plan- Hospital day #5, 6 Days Post-Op from AV graft from brachial artery to junction of the brachialaxillary vein. Since her INR is now therapeutic at 2 point wound is ready for discharge. We will arrange follow-up in for INR checks. Additionally will have her come back to the [facility] on for follow-up with 1 of the vascular surgery snow remover She will continue on Duricef 500 mg once daily through least follow-up on for concern of a possible soft tissue infection on right upper arm incision -Pain: Tylenol oxycodone -Diet: Regular -Antibiotics: Cefadroxil 500 mg once daily to be reassessed at outpatient -Cultures: None -Wound care: Continue elevating the right upper extremity as past -Drains: None -Activity: Up and walking as tolerated -DVT prophylaxis: On therapeutic heparin bridging to warfarin due to her chronic kidney disease. -Consults: Nephrology for assistance with managing chronic kidney disease/dialysis Please contact vascular surgery with any additional questions or concerns. Valeriano Travis MD, PhD [phone] documented in this encounter H&P Notes Paul Travis M.D., Ph.D. - 05/06/2019 8:09 AM CDT SUBJECTIVE Shabnam rWay is a 58 y.o. female with a history of end-stage renal disease related to hypertensive nephrosclerosis in the setting of failed renal transplant requiring dialysis since 2016 (Sunday,Sunday, Sunday). Her renal transplant was done in 2007 with failure in 2016. She has additionallyhad failed AV fistulas x3 parentheses no further options in the left upper extremity). She was admitted to vascular surgery for a redo AV fistula (right brachial basilic). Review of systems negative except for what is detailed in HPI OBJECTIVE Vitals: Vitals signs reviewed. Stable and afebrile. Physical Exam: General: Alert and oriented, No acute distress. Neck: Supple, Non-tender. Respiratory: Lungs are clear to auscultation. Respirations are non-labored. Breath sounds are equal. Heart: Regular rate and rhythm, no murmur appreciated. Abdomen: Soft, Non-tender, no masses. Cognition and Speech: Speech clear and coherent. Functional cognition intact. Psychiatric: Cooperative, appropriate mood & affect. Extremities: Warm, well perfused, no edema. No palpable thrill over site of prior right upper extremity AV fistula. Labs Labs reviewed. No clinically signifcant lab results. ASSESSMENT / PLAN #1 Chronic Kidney Disease NOS #2 Obstruction Ureter #3 Chronic Failure Renal End Stage Renal Disease Dialysis Dependent (HCC) #4 Complication Dialysis Device Subsequent #5 Anticoagulant Therapy #6 Failure Renal End Stage (HCC) Shabnam Wray is a 58 y.o. female with history of end-stage renal disease due to hypertensive nephrosclerosis. Plan will be for her to receive a right brachial basilic AV fistula or graft for future dialysis needs. documented in this encounter Consult Notes Deanne Fisher APRN, C.N.P., M.S.N. - 05/07/2019 10:08 AM CDTAssociated Order(s): IP CONSULT TO NEPHROLOGY SUBJECTIVE Nephrology consult (hospital) Referring Provider: Farzana Almodovar APRN, C.N.P. Reason for Consult: dialysis while hospitalized CHIEF COMPLAINT Management of hemodialysis while hospitalized for Chronic Failure Renal End Stage Renal Disease Dialysis Dependent (HCC) [N18.6, Z99.2] Failure Renal End Stage (HCC) [N18.6]. HISTORY OF PRESENT ILLNESS Ms. Wray is a 58 y.o. female who has a history of end stage renal disease related to hypertensive nephrosclerosis ad in the setting of a failed renal transplant, and has required dialysis most recently since 2017. She has a history of renal transplant in 2008 with failure in 2017. She has been admitted after undergoing placement of a right bachioaxillary AV graft yesterday. She was initially scheduled for placement of an AV fistula, but unfortunately, due to significant scarring of the vessels,she required graft placement. I note that she had loss of about 800 mL of blood during the procedure. She is now admitted for monitoring and heparin bridging. Ms. Wray normally dialyzes on Sunday, Sunday and Sunday at [facility]. She normally dialyzes for 3.5 hours with a 138 sodium, 2 potassium, 2.5 calcium, and 35 bicarbonate dialysate. Her estimated dry weight is 98 kg. Her dialysis access currently a right EJ tunneled hemodialysis catheter, which was placed on May 05 to replace a non functioning left IJ tunneled hemodialysis catheter. Hectorol 2 mcg IV is administered on Sunday, Sunday and Sunday. Heparin 2000 units prime and 1500 units per hour maintenance is administered during Ms. Wray's dialysis in the outpatient setting. Ms. Wray is seen during dialysis. She reports ongoing pain of the right arm and also her right chest around the area of the dialysis catheter. Both her arm and chest are bruised from the procedures she underwent earlier this week. She is concerned about her limited vascular access. She is also tearful at the prospect of needing to remain in the hospital for heparin bridging, but very much understands the necessity of this in order to protect the patency of her access. She is understandably frustrated with all the procedures and complications she has struggled with in regard to her dialysis access the last couple of months. She denies shortness of breath. She reports that her mental status is improving, though she felt quite out of it after her procedure yesterday. She generally tolerates dialysis ok in the outpatient setting. Over the last month, we have had some challenges with hypoxia andhypotension during dialysis, though this generally responds to supplemental oxygen via nasal canula. I have reviewed and updated the following: allergies, current medications, prior to admission medications and problem list REVIEW OF SYSTEMS Pertinent items are noted in HPI; all other review of systems was negative. OBJECTIVE Admission Weight: 100 kg Current Weight: 99.7 kg VITAL SIGNS Temperature: [36.4 ??C-36.9 ??C] 36.4 ??C Heart Rate: [58-76] 66 Resp Rate: [8-21] 17 Blood Pressure: (109-151)/(65-86) 120/80 SpO2: [94 %-99 %] 98 % Flow Rate (L/min): [2 L/min] 2 L/min Pulse Rate: [59-75] 66 Intake/Output Summary (Last 24 hours) at 05/07/2019 1008 Last data filed at 05/07/2019 0823 Gross per 24 hour Intake 1902.85 ml Output 800 ml Net 1102.85 ml PHYSICAL EXAM General: Alert and oriented, sitting up in the recliner, in no acute distress Heart: Regular rate and rhythm Lungs: Clear to auscultation in the anterior lung wilde bilaterally Extremities: There is trace edema of the lower extremities bilaterally. There is ecchymosis of the right upper extremity. Vessels: Right EJ tunneled hemodialysis catheter is working well for dialysis with a blood flow rateof 350 mL/min. There is ecchymosis and mild tenderness above the exit site of the catheter. No drainage or erythema noted. There is a right upper extremity AV graft that has a nice bruit. Faint thrill is noted. DIAGNOSTICS Lab Results Component Value Date HGB 9.8 (L) 05/07/2019 WBC 13.9 (H) 05/07/2019 PLT 156 (L) 05/07/2019 NA 138 05/06/2019 K 5.7 (H) 05/06/2019 CL 98 05/06/2019 HCO3 20 (L) 05/06/2019 BUN 39 (H) 05/06/2019 CREATININE 7.06 (H) 05/06/2019 CALCIUM 9.1 05/06/2019 ALBUMIN 4.2 01/28/2019 LABPHOS 4.2 01/28/2019 MG 1.6 (L) 02/11/2019 ASSESSMENT / PLAN #1 End stage renal disease related to hypertensive nephrosclerosis and in the setting of failed renal transplant, maintained on incenter hemodialysis #2 Status post right brachioaxillary AV graft placement May 06, 2019 #3 Chronic anemia related to end stage renal disease #4 Secondary hyperparathyroidism related to chronic renal failyure #5 Hypertension #6 Multiple issues with dialysis access patency including thrombosed left upper extremity AV fistulaand multiple non functioning tunneled dialysis catheters, on warfarin #7 Hepatitis B surveillance Hepatitis B surface antibody was noted to have a quantitative value of < 3 on July 07, 2019. As Ms. Wray has not developed immunity to hepatitis B, per dialysis guidelines, she requires monthly hepatitis B surface antigen monitoring. Her most recent hepatitis B surface antigen was negativeon April 14, 2019. is dialyzing today for 3.5 hours with a net removal of 2.9 L. She is dialyzing with a 2mEq/L potassium and 2.5 mEq/L calcium. Her next dialysis is planned for Sunday. Additional recommendations: -- Renal dialysis diet which includes low phosphorus, low potassium and low sodium -- Hectorol will not be administered in the inpatient setting due to not being on the [facility] formulary. This will be resumed in the outpatient dialysis setting. -- Resume Dialyvite, one tablet each evening -- Continue oral sevelamer 800 mg three times per day with meals for phosphorus binding. At any time, if Ms. Wray is NPO, she does not need to take these. -- Continue outpatient immunosuppressive regimen which includes mycophenolate 250 mg twice daily, prednisone 5 mg daily, and tacrolimus 2 mg twice daily. -- IV Cefazolin dosing needs to be adjusted for patients who require hemodialysis. Recommended dosing regimen options include 1 gm every 24 hours OR 2 gm after dialysis on dialysis days only. -- Ms. Wray will need to be set up for follow up with an anticoagulation clinic in [facility] at the time of discharge. Thank you for the opportunity to participate in 's care. For questions or concerns, please page the Nephrology A WOOD LATHE OPERATOR/PA pager ([phone]). documented in this encounter Nursing Notes Dara Davis R.N. - 05/12/2019 12:48 PM CDT Patient remained vitally stable for discharge. Returned from Dialysis and prepared to leave. All scripts sent to [facility] in [place]. Oxy and coumadin printed and given to patient. IVs removed. Patient was taken to [facility] by transport. Family to take home. Huber Ya R.N. - 05/09/2019 10:19 PM CDT Shift Goals: Clinical goals for shift: Pt will rate pain at a tolerable level and have a bowel movement during this 8 hour shift. Identify possible barriers to meeting goals/advancing plan of care: Pt is on an opioid for pain management and is refusing a suppository. End of Shift Summary: Pt has been comfortable this shift and has utilized one dose of her prn pain medication. Pt has been up out of bed at least 5 times and took a walk this shift but still hasn't been able to have a bowel movement. Pt still refuses administration of a suppository. documented in this encounter OR Notes Op Note - Guillermo Yu M.B.B.S. - 05/06/2019 11:42 AM CDT FULL OP NOTE Procedure(s) (LRB): Right arm brachio-basilic AV graft using 6mm propaten graft (Right) IR IMAGING Surgeon(s) and Role: * Guillermo Yu M.B.B.S. - Primary * Rex Sheets M.D. - Prevocational/Rehabilitation Counselor * Paul Travis M.D., Ph.D. - Other Cosmetic Sales Assistant Anesthesia Type General Pre-operative Diagnosis Chronic Failure Renal End Stage Renal Disease Dialysis Dependent (HCC) [N18.6, Z99.2]. Post-operative Diagnosis Same as pre-operative diagnosis Findings Right basilic vein unsuitable for use in the distal upper arm owing to small size. A brachio-basilicgraft, upon creation did not have good flow. An on-table angiogram revealed occlusion, likely due towebbing of the upper basilic vein. A repeat venogram following a patch venoplasty, showed brisk flowinto the right axillary vein. Complications None Description of Procedure Patient was brought to the operating room and placed in supine position. General endotracheal anesthesia was obtained. Right arm and shoulder were prepped and draped in standard fashion and time-out was performed. A longitudinal incision was made in the medial aspect of the upper arm above the elbow. The basilic vein and brachial artery were dissected. While the artery was suitable for clamping an anastomosis, the basilic vein was extremely diminutive for the visible length of our incision. It was not suitable for fistula creation. We talked to the patient's family and they gave us the go-ahead for an AV graft. The basilic vein was exposed in the upper arm near the axilla. This was made slightly more challenging by her body habitus. A superficial tunnel was made an heparin given. A 6 x 40 mm Propaten graft was passed through the tunnel and sewn end to side to the artery, after clamping. The central end was s patulated and sewn to the more central basilic vein. Upon restoring flow, I was not satisfied with the audible doppler signal in the graft. I decided to obtain an on-table fistulogram. It revealed thatthere was no flow through the central anastomosis. I dissected more central aspects of the vein. I placed two separate figure of 8 sutures at 10 and 2 o' clock position on the graft-vein anastomosis, and made a longitudinal graftotomy, extending on to the basilic vein. The back wall of the basilic vein was incorporated into our anastomosis. I repaired the posterior wall of the vein, and then sewd a bovine pericardial patch on to the graft as well as the basilic vein. Flow was restored and now I had a palpable thrill in the graft, as well as rapid emptying on a fistulogram. The central portions of the basilic vein look diminutive, but because of the thrill, I decided not to do another jump graft tothe more central veins of the arm. Hemostasis was achieved, and the two incisions were closed in layers. Patient was extubated. She will remain admitted until achieving therapeutic anticoagulation. She will undergo a Duplex U/S assessment of the graft tomorrow. Specimens None Drains None Estimated Blood Loss 800 mL Implants Implant Name Type Inv. Item Serial No. Fly Worker Lot No. LRB No. Used CLP LGC LGT TI SM - [id number] Hardware e.g. pins/screws/rods CLP LGC LGT TI SM Ethicon Right 1 CLP HRZN TI 6 CLP MD PRITI - [id number] Hardware e.g. pins/screws/rods CLP HRZN TI 6 CLP MD PRITI 3D [employer] [facility] Right 2 GRFT PRP STR 6X40 - [id number] - [id number] Vascular Graft GRFT PRP STR 6X40 [id number] GoreRight 1 GRFT VSC BOV 0.8X8 - [id number] Mesh or Patch GRFT VSC BOV 0.8X8 Synovis [id number] 1 Marietta Aden Brief Op Note - Paul Travis M.D., Ph.D. - 05/06/2019 11:42 AM CDT BRIEF OP NOTE Procedure(s) (LRB): CREATION ARTERIOVENOUS FISTULA UPPER EXTREMITY, First stage brachialbasilic arteriovenous fistula, Proceed as indicated. (Right) IR IMAGING Surgeon(s) and Role: * Guillermo Yu M.B.B.S. - Primary * Rex Sheets M.D. - Prevocational/Rehabilitation Counselor * Paul Travis M.D., Ph.D. - Other Cosmetic Sales Assistant Anesthesia Type General Pre-operative Diagnosis * Chronic Failure Renal End Stage Renal Disease Dialysis Dependent (HCC) [N18.6, Z99.2] Brief Operative Note Details Unable to use basilic vein in forearm as it was very scarred and diminutive. Therefore discussed with father about possibility of placing graft to which he agreed and patient was understanding that graft would be the plan if unable to use vein. We isolated the brachial artery and what we initially thought was axillary vein but later realized was the junction between the brachial and axillary vein. We performed a brachioaxillary av graft however on venous anastamosis the vein was back walled and we had to redo the anastomosis and eventually patch the vein with bovine pericardium. We shot an angio to confirm this before redoing the anastomosis. There was some significant blood loss during this. The graft was tunneled superficially in a mostly straight orientation in the upper arm and pulses were palpable in the wrist at completion. 6 ptfe graft was used there was a thrill at completion. Specimens None Drains None Estimated Blood Loss 800 mL Implants Implant Name Type Inv. Item Serial No. Fly Worker Lot No. LRB No. Used CLP LGC LGT TI - [id number] Hardware e.g. pins/screws/rods CLP LGC LGT TI SM Ethicon Right 1 CLP HRZN TI 6 CLP MD [place]U - [id number] Hardware e.g. pins/screws/rods CLP HRZN TI 6 CLP MD SHEL[place]U [employer] Right 2 GRFT PRP STR 6X40 - [id number] - [id number] Vascular Graft GRFT PRP STR 6X40 [id number] GoreRight 1 GRFT VSC BOV 0.8X8 - [id number] Mesh or Patch GRFT VSC BOV 0.8X8 Synovis [id number] 1 Paul Travis M.D., Ph.D. documented in this encounter Miscellaneous Notes Hospital Course - Lola Marques APRN, C.N.P. - 05/06/2019 5:48 PM CDT Ms. Wray was admitted to Dr. Yu's surgical service following first stage brachialbasilic arteriovenous fistula placement on 05/06/2019. She tolerated the procedure well and was transferred to the vascular surgical unit postoperatively. Heparin infusion was initiated for anticoagulation therapy.Pain was managed with intravenous pain medications, which was later transitioned to oral pain medications with adequate control. Right upper extremity incision was well approximated and without erythema but draining serosanguinous fluid in a moderate amount. Cefadroxil was initiated and should be continued for at least 7 mg. Neurological exam was intact. At the time of dismissal, she was tolerating a general diet, ambulating, and urinating without difficulty. Aspirin was continued throughout the perioperative course and should be continued lifelong. Warfarinwas resumed on 05/06/19, see below. Ms. Wray was continued on previous statin therapy. Continue to follow-up with primary care for ongoing monitoring. Nephrology was consulted to assist with ongoing dialysis needs while hospitalized. Coumadin Therapy: You are being discharged on Coumadin, a medication that will help you keep your blood thin and prevent clots. It is important to keep your Coumadin dose at a target level so your blood is not too thin or too thick. Anticipated duration of Coumadin/Warfarin therapy: Lifelong Coumadin therapy (Date - INR/dose): 05/10/19: 1.2 INR/ 4 mg 05/11/19: 1.6 INR/ 4 mg 05/12/19: 2.1 INR/ 4 mg 05/13/19: Take 4 mg. 05/14/19: Have your INR checked at the clinic. Further dosing per the provider there. COUMADIN (WARFARIN) WARNING 1. Coumadin (Warfarin, an anticoagulant) is a medication which decreases your body's ability to clotyour blood and therefore, may cause bleeding. Signs or symptoms of bleeding may include, but are notlimited to, the following: black- colored bowel movements, rectal bleeding, new bleeding while brushing your teeth, nose bleeds, or increased bruising. If you develop any of these signs or symptoms, youneed to seek medical attention urgently. 2. Follow a consistent vitamin K diet. 3. Your target INR: 2.0-3.0. 4. The reason you need to take Coumadin (Warfarin) is for: thrombosis. 5. Only take aspirin or NSAID medications if your doctor prescribes them. 6. Coumadin requires follow up of your INR. You will have your INR checked within 2-4 days after discharge with your primary care provider. documented in this encounter Plan of Treatment Upcoming Encounters Date Type Specialty Care Team Description 06/01/2022 Telemedicine Pharmacy An Nicholas APRN, C.N.P., D.N.P., M.S.N. [address] [place] [address] [phone] (Wo rk) 07/31/2022 Lab Laboratory Medicine Tony Rubalcava M. B., Ch.B., MElvia. [address] [place] [address] [phone] (Wo rk) 07/31/2022 Lab Laboratory Medicine Tony Rubalcava M. B., Ch.Miguelito., MElvia. [address] [place] [address] [phone] (Wo rk) 07/31/2022 Office Visit Transplant Tony Rubalcava M.B., Mukund Otoole [address] [place] [address] [phone] (Wo rk) 07/31/2022 Appointment Radiology Tony Rubalcava M.B., Mukund Otoole [address] [place] [address] [phone] (Wo rk) 08/01/2022 Office Visit Transplant Tony Rubalcava M.B., Mukund Otoole [address] [place] [address] [phone] (Wo rk) 08/01/2022 Clinical Support Transplant Tony Rubalcava M.B., Mukund Otoole [address] [place] [address] [phone] (Wo rk) Pending Results Name Type Priority Associated Diagnoses Date/Ti me IR IMAGING Imaging RAD - Routine (most Chronic Failure Renal 05/06/2019 5:19 PM inpatients and all End Stage Renal CDT outpatients) Disease Dialysis Dependent (HCC) documented as of this encounter Procedures Procedure Name Priority Date/Time Associated Comments Diagnosis BASIC METABOLIC Routine 05/12/2019 7:31 Results f or PANEL, S/P AM CDT this procedure are in the results section. PROTHROMBIN TIME Routine 05/12/2019 5:01 Results for (PT), P AM CDT this procedure are in the results section. HEPARIN LEVEL ANTI-XA Timed 05/12/2019 5:01 Res ults for ASSAY, P AM CDT this procedure are in the results section. CBC WITHOUT Routine 05/12/2019 5:01 Results for DIFFERENTIAL, B AM CDT this procedu re are in the results section. US HEMODIALYSIS RAD - Routine 05/11/2019 3:19 Results for FISTULA-GRAFT RIGHT (most inpatients PM CDT this procedure and all are in the outpatients) results section. ADULT OXYGEN THERAPY Routine 05/11/2019 8:00 AM CDT REMOTE OXIMETRY Routine 05/11/2019 8:00 MONITORING CONT. AM CDT PROTHROMBIN TIME Routine 05/11/2019 3:41 Results for (PT), P AM CDT this procedure are in the results section. HEPARIN LEVEL ANTI-XA Routine 05/11/2019 3:41 Res ults for ASSAY, P AM CDT this procedure are in the results section. CBC WITHOUT Routine 05/11/2019 3:41 Results for DIFFERENTIAL, B AM CDT this procedu re are in the results section. PHOSPHORUS Routine 05/11/2019 3:41 Results for (INORGANIC), S AM CDT this procedur e are in the results section. MAGNESIUM, S Routine 05/11/2019 3:41 Results for AM CDT this procedure are in the results section. BASIC METABOLIC Routine 05/11/2019 3:41 Results f or PANEL, S/P AM CDT this procedure are in the results section. ADULT OXYGEN THERAPY Routine 05/10/2019 8:01 PM CDT DX ABDOMEN 1 VIEW RAD - Routine 05/10/2019 6:08 Result s for (most inpatients PM CDT this proced ure and all are in the outpatients) results section. HEMODIALYSIS Routine 05/10/2019 9:50 AM CDT REMOTE OXIMETRY Routine 05/10/2019 8:01 MONITORING CONT. AM CDT ADULT OXYGEN THERAPY Routine 05/10/2019 8:01 AM CDT PROTHROMBIN TIME Routine 05/10/2019 6:18 Results for (PT), P AM CDT this procedure are in the results section. HEPARIN LEVEL ANTI-XA Timed 05/10/2019 6:18 Res ults for ASSAY, P AM CDT this procedure are in the results section. CBC WITHOUT Routine 05/10/2019 6:18 Results for DIFFERENTIAL, B AM CDT this procedu re are in the results section. BASIC METABOLIC Routine 05/10/2019 6:18 Results f or PANEL, S/P AM CDT this procedure are in the results section. ADULT OXYGEN THERAPY Routine 05/09/2019 8:01 PM CDT IRON AND TOT Timed 05/09/2019 11:01 Results for IRON-BINDING AM CDT this procedure CAPACITY, S/P are in the results section. FERRITIN, S Timed 05/09/2019 11:01 Results for AM CDT this procedure are in the results section. HEMODIALYSIS Routine 05/09/2019 10:27 AM CDT ADULT OXYGEN THERAPY Routine 05/09/2019 8:01 AM CDT PROTHROMBIN TIME Routine 05/09/2019 7:32 Results for (PT), P AM CDT this procedure are in the results section. HEPARIN LEVEL ANTI-XA Routine 05/09/2019 7:32 Res ults for ASSAY, P AM CDT this procedure are in the results section. CBC WITHOUT Routine 05/09/2019 7:32 Results for DIFFERENTIAL, B AM CDT this procedu re are in the results section. ADULT OXYGEN THERAPY Routine 05/08/2019 8:01 PM CDT HEMODIALYSIS Routine 05/08/2019 12:02 PM CDT ADULT OXYGEN THERAPY Routine 05/08/2019 8:01 AM CDT REMOTE OXIMETRY Routine 05/08/2019 8:01 MONITORING CONT. AM CDT PROTHROMBIN TIME Routine 05/08/2019 1:32 Results for (PT), P AM CDT this procedure are in the results section. HEPARIN LEVEL ANTI-XA Timed 05/08/2019 1:32 Res ults for ASSAY, P AM CDT this procedure are in the results section. CBC WITHOUT Routine 05/08/2019 1:32 Results for DIFFERENTIAL, B AM CDT this procedu re are in the results section. PHOSPHORUS Routine 05/08/2019 1:32 Results for (INORGANIC), S AM CDT this procedur e are in the results section. MAGNESIUM, S Routine 05/08/2019 1:32 Results for AM CDT this procedure are in the results section. BASIC METABOLIC Routine 05/08/2019 1:32 Results f or PANEL, S/P AM CDT this procedure are in the results section. ADULT OXYGEN THERAPY Routine 05/07/2019 8:01 PM CDT REMOTE OXIMETRY Routine 05/07/2019 8:01 MONITORING CONT. PM CDT HEPARIN LEVEL ANTI-XA Timed 05/07/2019 4:41 Res ults for ASSAY, P PM CDT this procedure are in the results section. US HEMODIALYSIS RAD - Routine 05/07/2019 3:25 Results for FISTULA-GRAFT RIGHT (most inpatients PM CDT this procedure and all are in the outpatients) results section. ACTIVATED PARTIAL STAT 05/07/2019 10:23 Result s for THROMBOPLASTIN TIME AM CDT this pro cedure (APTT), P are in the results section. PROTHROMBIN TIME STAT 05/07/2019 10:23 Results for (PT), P AM CDT this procedure are in the results section. HEMODIALYSIS Routine 05/07/2019 8:05 AM CDT ADULT OXYGEN THERAPY Routine 05/07/2019 8:01 AM CDT REMOTE OXIMETRY Routine 05/07/2019 8:01 MONITORING CONT. AM CDT CBC WITHOUT Routine 05/07/2019 7:43 Results for DIFFERENTIAL, B AM CDT this procedu re are in the results section. BASIC METABOLIC Routine 05/07/2019 7:43 Results f or PANEL, S/P AM CDT this procedure are in the results section. CBC WITHOUT Routine 05/06/2019 8:11 Results for DIFFERENTIAL, B PM CDT this procedu re are in the results section. BASIC METABOLIC Routine 05/06/2019 8:11 Results f or PANEL, S/P PM CDT this procedure are in the results section. ADULT OXYGEN THERAPY Routine 05/06/2019 8:01 PM CDT REMOTE OXIMETRY Routine 05/06/2019 8:01 MONITORING CONT. PM CDT ADULT OXYGEN THERAPY Routine 05/06/2019 7:05 PM CDT ADULT OXYGEN THERAPY Routine 05/06/2019 7:05 PM CDT ADULT OXYGEN THERAPY Routine 05/06/2019 7:05 PM CDT TYPE AND SCREEN Routine 05/06/2019 6:57 Results f or PM CDT this procedure are in the results section. REMOTE OXIMETRY Routine 05/06/2019 6:16 MONITORING CONT. PM CDT ADULT OXYGEN THERAPY Routine 05/06/2019 5:27 PM CDT IR IMAGING RAD - Routine 05/06/2019 5:19 Chronic Failure (most inpatients PM CDT Renal End Stage and all Renal Disease outpatients) Dialysis Dependent (HCC) CREATION 05/06/2019 10:41 Chronic Failure ARTERIOVENOUS FISTULA AM CDT Renal End Stage UPPER EXTREMITY - Renal Disease OTHER Dialysis Dependent (HCC) Case Notes TATTOO DESIGNER [id number] documented in this encounter Results (ABNORMAL) BMP (Basic Metabolic Panel) (05/12/2019 7:31 AM CDT) Analysis Performed At Patho logist Time Signature Potassium, S 4.7 3.6 - 5.2 05/12/2019 mmol/L 8:47 AM CDT Sodium, S 122 (L) 135 - 145 05/12/2019 mmol/L 8:47 AM CDT Chloride, S 80 (L) 98 - 107 05/12/2019 mmol/L 8:47 AM CDT Bicarbonate, S 19 (L) 22 - 29 05/12/2019 mmol/L 8:47 AM CDT Anion Gap 23 (H) 7 - 15 05/12/2019 8:47 AM CDT BUN (Blood Urea 58 (H) 6 - 21 05/12/2019 Nitrogen), S mg/dL 8:47 AM CDT Creatinine 8.07 (H) 0.59 - 05/12/2019 1.04 mg/dL 8:47 AM CDT eGFR-Non <15 (L) >=60 05/12/2019 Black/ mL/min/BSA 8:47 AM CDT Libyan Comment: ----ADDITIONAL INFORMATION---- Estimated GFR calculated using the 2009 CKD_EPI creatinine equation. eGFR-Black/ <15 (L) >=60 mL/min/BSA 2018 8:47 AM CDT Comment: ----ADDITIONAL INFORMATION---- Estimated GFR calculated using the 2009 CKD_EPI creatinine equation. Calcium, Total, S 9.0 8.6 - 10.0 mg/dL 05/12/2019 8:47 AM CDT Glucose, S 104 70 - 140 mg/dL 05/12/2019 8:47 AM CDT Specimen Anatomical Collection Method Collection Time Receive d Time (Source) Location / / Volume Laterality Blood (Blood, 05/12/2019 7:31 AM 05/12/20 19 8:00 Venous) CDT AM CDT Lola George APRN C.N.P., M.S. LAB B SCOOTER ADD-ON Performing Organization Address City/State/ZIP Code Phon e Number [facility] - [address] [place], [place] [address] [facility] (ABNORMAL) PT (Prothrombin Time) with INR (05/12/2019 5:01 AM CDT) [facility] Method Time Signature Prothrombin 23.0 (H) 9.4 - 12.5 05/12/2019 Time, P sec 5:38 AM CDT INR 2.1 0.9 - 1.1 05/12/2019 5:38 AM CDT Comment: ----ADDITIONAL INFORMATION---- Standard intensity warfarin therapeutic range: 2.0 to 3.0 ?? High intensity warfarin therapeutic rang e: 2.5 to 3.5 Specimen Anatomical Collection Method Collection Time Receive d Time (Source) Location / / Volume Laterality Blood (Blood, 05/12/2019 5:01 AM 05/12/20 19 5:13 Venous) CDT AM CDT Narrative This result has an attachment that is no t available. Farzana Almodovar APRN, R.N. LAB BLOOD ADD-ON Performing Organization Address [facility] Phon e Number [facility] - [address] (ABNORMAL) CBC without Differential (05/12/2019 5:01 AM CDT) Patholo gist Method Time Signature Hemoglobin 8.6 (L) 11.6 - 05/12/2019 15.0 g/dL 5:23 AM CDT Hematocrit 26.9 (L) 35.5 - 05/12/2019 44.9 % 5:23 AM CDT Erythrocytes 2.94 (L) 3.92 - 05/12/2019 5.13 5:23 AM CDT x10(12)/L MCV 91.5 78.2 - 05/12/2019 97.9 fL 5:23 AM CDT RBC Distrib Width 14.6 12.2 - 05/12/2019 16.1 % 5:23 AM CDT Platelet Count 127 (L) 157 - 371 05/12/2019 x10(9)/L 5:23 AM CDT Leukocytes 10.6 (H) 3.4 - 9.6 05/12/2019 x10(9)/L 5:23 AM CDT Specimen Anatomical Collection Method Collection Time Receive d Time (Source) Location / / Volume Laterality Blood (Blood, 05/12/2019 5:01 AM 05/12/20 19 5:13 Venous) CDT AM CDT Farzana Almodovar APRN, R.N. LAB BLOOD ADD-ON Performing Organization Address City/[facility]/ZIP Code Phon e Number [facility] - [address] Heparin Anti-Xa Assay (05/12/2019 5:01 AM CDT) P athologist Signature Heparin 0.29 IU/mL 05/12/2019 Anti-Xa, P 5:39 AM CDT Comment: UFH therapeutic range: ?? [...] Location / / Volume Laterality Blood (Blood, 05/12/2019 5:01 AM 05/12/20 5:13 Venous) CDT AM CDT Viktoria Montana APRN C.N.P., M.S.N. LAB BLOOD NON ADD-O N Performing Organization Address City/State/ZIP Code Phon e Number [facility] - [address] [place] [id number] [facility] US Hemodialysis Fistula-Graft Right (05/11/2019 3:19 PM CDT) Anatomical Region Laterality Modality Body, Ultrasound RST LOS, Ultrasound ARZ LOS, Ultrasound FLA Right Ultrasound LOS, Procedural Specimen (Source) Anatomical Collection Method Collection Time Re ceived Time Location / / Volume Laterality 05/11/2019 3:21 PM CDT Impressions 05/11/2019 7:26 PM CDT 1. Right brachiocephalic arteriovenous fistula with graft to axillary vein is patent without significant stenosis. 2. Stable small fluid collections about the graft likely represent postoperative fluid/hematoma without significant almodovar e in size or appearance since the comparison exam. Narrative 05/11/2019 7:26 PM CDT EXAM: US HEMODIALYSIS FISTULA-GRAFT RIGHT Exam performed with color and spectral D oppler analysis. COMPARISON: Ultrasound 05/07/2019. FINDINGS: Location: Right brachial artery to basil ic vein fistula with graft to axillary vein. Arterial: Antegrade flow distal to the f istula. Anastomosis: No evidence of significant stenosis. Outflow vein: Patent without stenosis. O utflow velocities just at/distal to the proximal anastomosis have increased sinc e the comparison exam, now measuring 430 cm/s and previously measuring 263 cm/s. No grayscale evidence for significant stenosis at this location, and the eleva rebecca velocity is probably secondary to a combination of being near the anastomosi s and vessel tortuosity at that location. Central veins: Patent without stenosis. Branches: None. Mean average flow volume: Not performed at the request of the ordering service. Again identified are multiple postoperat sal edema and small fluid collections about the graft with the largest closest to the graft measuring 1.9 x 3.7 x 5.7 cm, not significantly changed since the comparison exam accounting for technical differences. No new fluid collections id entified. Procedure Note Pranay Smith M.D. - 05/11/2019Forma tting of this note might be different from the original. EXAM: US HEMODIALYSIS FISTULA-GRAFT RIGH T Exam performed with color and spectral D oppler analysis. COMPARISON: Ultrasound 05/07/2019. FINDINGS: Location: Right brachial artery to basil ic vein fistula with graft to axillary vein. Arterial: Antegrade flow distal to the f istula. Anastomosis: No evidence of significant stenosis. Outflow vein: Patent without stenosis. O utflow velocities just at/distal to the proximal anastomosis have increased sinc e the comparison exam, now measuring 430 cm/s and previously measuring 263 cm/s. No grayscale evidence for significant stenosis at this location, and the eleva rebecca velocity is probably secondary to a combination of being near the anastomosi s and vessel tortuosity at that location. Central veins: Patent without stenosis. Branches: None. Mean average flow volume: Not performed at the request of the ordering service. Again identified are multiple postoperat sal edema and small fluid collections about the graft with the largest closest to the graft measuring 1.9 x 3.7 x 5.7 cm, not significantly changed since the comparison exam accounting for technical differences. No new fluid collections id entified. IMPRESSION: 1. Right brachiocephalic arteriovenous f istula with graft to axillary vein is patent without significant stenosis. 2. Stable small fluid collections about the graft likely represent postoperative fluid/hematoma without significant almodovar e in size or appearance since the comparison exam. Jaciel Trejo M.D. IMG US PROCEDURES (ABNORMAL) Phosphorus Inorganic (05/11/2019 3:41 AM CDT) P athologist Signature Phosphorus 6.3 (H) 2.5 - 4.5 05/11/2019 (Inorganic), S mg/dL 4:37 AM CDT Specimen Anatomical Collection Method Collection Time Receive d Time (Source) Location / / Volume Laterality Blood (Blood, 05/11/2019 3:41 AM 05/11/20 19 4:05 Venous) CDT AM CDT Viktoria Montana APRN, C.N.P., M.S.N. LAB BLOOD ADD-ON Performing Organization Address City/[facility] Phon e Number [facility] - [address] [place] [phone] [facility] Magnesium (05/11/2019 3:41 AM CDT) P athologist Signature Magnesium, S 2.1 1.7 - 2.3 05/11/2019 mg/dL 4:37 AM CDT Specimen Anatomical Collection Method Collection Time Receive d Time (Source) Location / / Volume Laterality Blood (Blood, 05/11/2019 3:41 AM 05/11/20 19 4:05 Venous) CDT AM CDT Viktoria Montana APRN, C.N.P., M.S.N. LAB BLOOD ADD-ON Performing Organization Address City/[facility] Phon e Number [facility] - [address] [phone] 05 [facility] (ABNORMAL) Basic Metabolic Panel (05/11/2019 3:41 AM CDT) Analysis Performed At Patho logist Time Signature Potassium, S 4.1 3.6 - 5.2 05/11/2019 mmol/L 4:37 AM CDT Sodium, S 129 (L) 135 - 145 05/11/2019 mmol/L 4:37 AM CDT Chloride, S 87 (L) 98 - 107 05/11/2019 mmol/L 4:37 AM CDT Bicarbonate, S 25 22 - 29 05/11/2019 mmol/L 4:37 AM CDT Anion Gap 17 (H) 7 - 15 05/11/2019 4:37 AM CDT BUN (Blood Urea 36 (H) 6 - 21 05/11/2019 Nitrogen), S mg/dL 4:37 AM CDT Creatinine 6.53 (H) 0.59 - 05/11/2019 1.04 mg/dL 4:37 AM CDT eGFR-Non <15 (L) >=60 05/11/2019 Black/ mL/min/BSA 4:37 AM CDT Libyan Comment: ----ADDITIONAL INFORMATION---- Estimated GFR calculated using the 2009 CKD_EPI creatinine equation. eGFR-Black/ <15 (L) >=60 mL/min/BSA 2018 4:37 AM CDT Comment: ----ADDITIONAL INFORMATION---- Estimated GFR calculated using the 2009 CKD_EPI creatinine equation. Calcium, Total, S 9.6 8.6 - 10.0 mg/dL 05/11/2019 4:37 AM CDT Glucose, S 115 70 - 140 mg/dL 05/11/2019 4:37 AM CDT Specimen Anatomical Collection Method Collection Time Receive d Time (Source) Location / / Volume Laterality Blood (Blood, 05/11/2019 3:41 AM 05/11/20 4:05 Venous) CDT AM CDT Fracisco Khan APRN.N.P., M.S.N. LAB BLOOD ADD-ON Performing Organization Address City/[facility] Code Phon e Number [facility] - [address] [phone] 05 [facility] (ABNORMAL) PT (Prothrombin Time) with INR (05/11/2019 3:41 AM CDT) [facility] Method Time Signature Prothrombin 18.3 (H) 9.4 - 12.5 05/11/2019 Time, P sec 4:24 AM CDT INR 1.6 0.9 - 1.1 05/11/2019 4:24 AM CDT Comment: ----ADDITIONAL INFORMATION---- Standard intensity warfarin therapeutic range: 2.0 to 3.0 ?? High intensity warfarin therapeutic rang e: 2.5 to 3.5 Specimen Anatomical Collection Method Collection Time Receive d Time (Source) Location / / Volume Laterality Blood (Blood, 05/11/2019 3:41 AM 05/11/20 19 4:05 Venous) CDT AM CDT Farzana Almodovar APRN, R.N. LAB BLOOD ADD-ON Performing Organization Address [facility] Code Phon e Number [facility] - [address] [phone] 05 [facility] (ABNORMAL) CBC without Differential (05/11/2019 3:41 AM CDT) Patholo gist Method Time Signature Hemoglobin 8.4 (L) 11.6 - 05/11/2019 15.0 g/dL 4:13 AM CDT Hematocrit 27.0 (L) 35.5 - 05/11/2019 44.9 % 4:13 AM CDT Erythrocytes 2.93 (L) 3.92 - 05/11/2019 5.13 4:13 AM CDT x10(12)/L MCV 92.2 78.2 - 05/11/2019 97.9 fL 4:13 AM CDT RBC Distrib Width 15.0 12.2 - 05/11/2019 16.1 % 4:13 AM CDT Platelet Count 127 (L) 157 - 371 05/11/2019 x10(9)/L 4:13 AM CDT Leukocytes 10.1 (H) 3.4 - 9.6 05/11/2019 x10(9)/L 4:13 AM CDT Specimen Anatomical Collection Method Collection Time Receive d Time (Source) Location / / Volume Laterality Blood (Blood, 05/11/2019 3:41 AM 05/11/20 19 4:06 Venous) CDT AM CDT Farzana Almodovar APRN, R.N. LAB BLOOD ADD-ON Performing Organization Address City/State/ZIP Code Phon e Number [facility] - [address] Heparin Anti-Xa Assay (05/11/2019 3:41 AM CDT) P athologist Signature Heparin 0.41 IU/mL 05/11/2019 Anti-Xa, P 4:24 AM CDT Comment: UFH therapeutic range: ?? [...] Location / / Volume Laterality Blood (Blood, 05/11/2019 3:41 AM 05/11/20 19 4:05 Venous) CDT AM CDT Maryuri Russo M.D. 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 Moderate fecal loading of the colon. No evidence of bowel obstruction. Distention of the stomach. Narrative 05/10/2019 6:12 PM CDT EXAM: ??DX ABDOMEN 1 VIEW Procedure Note Scarlett Fernandes M.B., Ch.B. 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 Moderate fecal loading of the colon. No evidence of bowel obstruction. Distention of the stomach. Milli Khan APRNN.P., M.S.N. IMG DIAGNOSTIC IMAG ING PROCEDURES (ABNORMAL) PT (Prothrombin Time) with INR (05/10/2019 6:18 AM CDT) [facility] gist Method Time Signature Prothrombin 15.2 (H) 9.4 - 12.5 05/10/2019 Time, P sec 6:58 AM CDT INR 1.4 0.9 - 1.1 05/10/2019 6:58 AM CDT Comment: ----ADDITIONAL INFORMATION---- Standard intensity warfarin therapeutic range: 2.0 to 3.0 ?? High intensity warfarin therapeutic rang e: 2.5 to 3.5 Specimen Anatomical Collection Method Collection Time Receive d Time (Source) Location / / Volume Laterality Blood (Blood, 05/10/2019 6:18 AM 05/10/20 19 6:39 Venous) CDT AM CDT Farzana Almodovar APRN, R.N. LAB BLOOD ADD-ON Performing Organization Address [facility] Phon e Number [facility] - [address] [phone] 05 [facility] (ABNORMAL) CBC without Differential (05/10/2019 6:18 AM CDT) Patholo gist Method Time Signature Hemoglobin 8.3 (L) 11.6 - 05/10/2019 15.0 g/dL 6:48 AM CDT Hematocrit 26.8 (L) 35.5 - 05/10/2019 44.9 % 6:48 AM CDT Erythrocytes 2.85 (L) 3.92 - 05/10/2019 5.13 6:48 AM CDT x10(12)/L MCV 94.0 78.2 - 05/10/2019 97.9 fL 6:48 AM CDT RBC Distrib Width 14.5 12.2 - 05/10/2019 16.1 % 6:48 AM CDT Platelet Count 109 (L) 157 - 371 05/10/2019 x10(9)/L 6:48 AM CDT Leukocytes 9.3 3.4 - 9.6 05/10/2019 x10(9)/L 6:48 AM CDT Specimen Anatomical Collection Method Collection Time Receive d Time (Source) Location / / Volume Laterality Blood (Blood, 05/10/2019 6:18 AM 05/10/20 19 6:39 Venous) CDT AM CDT Farzana Almodovar APRN, R.N. LAB BLOOD ADD-ON Performing Organization Address City/[facility] Code Phon e Number [facility] - [address] [phone] [facility] (ABNORMAL) BMP (Basic Metabolic Panel) (05/10/2019 6:18 AM CDT) Analysis Performed At Patho logist Time Signature Potassium, S 4.1 3.6 - 5.2 05/10/2019 mmol/L 7:34 AM CDT Sodium, S 132 (L) 135 - 145 05/10/2019 mmol/L 7:34 AM CDT Chloride, S 92 (L) 98 - 107 05/10/2019 mmol/L 7:34 AM CDT Bicarbonate, S 27 22 - 29 05/10/2019 mmol/L 7:34 AM CDT Anion Gap 13 7 - 15 05/10/2019 7:34 AM CDT BUN (Blood Urea 27 (H) 6 - 21 05/10/2019 Nitrogen), S mg/dL 7:34 AM CDT Creatinine 5.03 (H) 0.59 - 05/10/2019 1.04 mg/dL 7:34 AM CDT eGFR-Non <15 (L) >=60 05/10/2019 Black/ mL/min/BSA 7:34 AM CDT Libyan Comment: ----ADDITIONAL INFORMATION---- Estimated GFR calculated using the 2009 CKD_EPI creatinine equation. eGFR-Black/ <15 (L) >=60 mL/min/BSA 2018 7:34 AM CDT Comment: ----ADDITIONAL INFORMATION---- Estimated GFR calculated using the 2009 CKD_EPI creatinine equation. Calcium, Total, S 9.3 8.6 - 10.0 mg/dL 05/10/2019 7:34 AM CDT Glucose, S 101 70 - 140 mg/dL 05/10/2019 7:34 AM CDT Specimen Anatomical Collection Method Collection Time Receive d Time (Source) Location / / Volume Laterality Blood (Blood, 05/10/2019 6:18 AM 05/10/20 6:40 Venous) CDT AM CDT Lola George APRN C.N.P., M.S. LAB B LOOD ADD-ON Performing Organization Address City/State/ZIP Code Phon e Number [facility] - [address] [phone] 05 [facility] Heparin Anti-Xa Assay (05/10/2019 6:18 AM CDT) P athologist Signature Heparin 0.34 IU/mL 05/10/2019 Anti-Xa, P 6:56 AM CDT Comment: UFH therapeutic range: ?? [...] Location / / Volume Laterality Blood (Blood, 05/10/2019 6:18 AM 05/10/20 19 6:39 Venous) CDT AM CDT Fracisco Mcclain APRN.N.Nela., M.S. LAB B LOOD NON ADD-ON Performing Organization Address City/[facility] Phon e Number [facility] - [address] [address] 05 [facility] (ABNORMAL) Ferritin (05/09/2019 11:01 AM CDT) athologist Signature Ferritin, S 659 (H) 11 - 307 05/09/2019 mcg/L 12:28 PM CDT Specimen Anatomical Collection Method Collection Time Receive d Time (Source) Location / / Volume Laterality Blood (Blood, 05/09/2019 11:01 05/09/2019 Venous) AM CDT 11:20 AM CDT Milli Bangura APRNNJohan., M.S.N. LAB BLOOD ADD-O N Performing Organization Address City/[facility] Phon e Number [facility] - [address] [address] [facility] (ABNORMAL) Iron and Total Iron-Binding Capacity (05/09/2019 11:01 AM CDT) athologist Signature Iron 68 35 - 145 05/09/2019 mcg/dL 11:59 AM CDT Total Iron 247 (L) 250 - 400 05/09/2019 Binding mcg/dL 11:59 AM CDT Capacity Percent 28 14 - 50 % 05/09/2019 Saturation 11:59 AM CDT Specimen Anatomical Collection Method Collection Time Receive d Time (Source) Location / / Volume Laterality Blood (Blood, 05/09/2019 11:01 05/09/2019 Venous) AM CDT 11:20 AM CDT Fracisco Bangura APRN.N.P., M.S.N. LAB BLOOD ADD-O N Performing Organization Address [facility] Phon e Number [facility] - [address] [phone] 05 [facility] (ABNORMAL) PT (Prothrombin Time) with INR (05/09/2019 7:32 AM CDT) [facility] Method Time Signature Prothrombin 13.8 (H) 9.4 - 12.5 05/09/2019 Time, P sec 8:17 AM CDT INR 1.2 0.9 - 1.1 05/09/2019 8:17 AM CDT Comment: ----ADDITIONAL INFORMATION---- Standard intensity warfarin therapeutic range: 2.0 to 3.0 ?? High intensity warfarin therapeutic rang e: 2.5 to 3.5 Specimen Anatomical Collection Method Collection Time Receive d Time (Source) Location / / Volume Laterality Blood (Blood, 05/09/2019 7:32 AM 05/09/20 19 8:00 Venous) CDT AM CDT Farzana Almodovar APRN, R.N. LAB BLOOD ADD-ON Performing Organization Address [facility] Code Phon e Number [facility] - [address] [address] [facility] (ABNORMAL) CBC without Differential (05/09/2019 7:32 AM CDT) [facility] Method Time Signature Hemoglobin 8.4 (L) 11.6 - 05/09/2019 15.0 g/dL 7:58 AM CDT Hematocrit 26.1 (L) 35.5 - 05/09/2019 44.9 % 7:58 AM CDT Erythrocytes 2.84 (L) 3.92 - 05/09/2019 5.13 7:58 AM CDT x10(12)/L MCV 91.9 78.2 - 05/09/2019 97.9 fL 7:58 AM CDT RBC Distrib Width 14.9 12.2 - 05/09/2019 16.1 % 7:58 AM CDT Platelet Count 115 (L) 157 - 371 05/09/2019 x10(9)/L 7:58 AM CDT Leukocytes 8.9 3.4 - 9.6 05/09/2019 x10(9)/L 7:58 AM CDT Specimen Anatomical Collection Method Collection Time Receive d Time (Source) Location / / Volume Laterality Blood (Blood, 05/09/2019 7:32 AM 05/09/20 19 7:53 Venous) CDT AM CDT Farzana Almodovar APRN, R.N. LAB BLOOD ADD-ON Performing Organization Address [facility] Phon e Number [facility] - [address] [phone] 05 [facility] Heparin Anti-Xa Assay (05/09/2019 7:32 AM CDT) P athologist Signature Heparin 0.36 IU/mL 05/09/2019 Anti-Xa, P 8:17 AM CDT Comment: UFH therapeutic range: ?? [...] Location / / Volume Laterality Blood (Blood, 05/09/2019 7:32 AM 05/09/20 19 8:00 Venous) CDT AM CDT Farzana Almodovar APRN, R.N. LAB BLOOD NON ADD-ON Performing Organization Address City/[facility] Phon e Number [facility] - [address] [address] 05 [facility] Heparin Anti-Xa Assay (05/08/2019 1:32 AM CDT) P athologist Signature Heparin 0.46 IU/mL 05/08/2019 Anti-Xa, P 3:15 AM CDT Comment: UFH therapeutic range: ?? [...] Location / / Volume Laterality Blood (Blood, 05/08/2019 1:32 AM 05/08/20 1:57 Venous) CDT AM CDT Cortney Albert APRN, C.N.P., M.S.N. LAB BLOOD NON A DD-ON Performing Organization Address [facility] Phon e Number [facility] [employer] - [address] (ABNORMAL) PT (Prothrombin Time) with INR (05/08/2019 1:32 AM CDT) [facility] Method Time Signature Prothrombin 12.9 (H) 9.4 - 12.5 05/08/2019 Time, P sec 2:24 AM CDT INR 1.2 0.9 - 1.1 05/08/2019 2:24 AM CDT Comment: ----ADDITIONAL INFORMATION---- Standard intensity warfarin therapeutic range: 2.0 to 3.0 ?? High intensity warfarin therapeutic rang e: 2.5 to 3.5 Specimen Anatomical Collection Method Collection Time Receive d Time (Source) Location / / Volume Laterality Blood (Blood, 05/08/2019 1:32 AM 05/08/20 1:57 Venous) CDT AM CDT Farzana Almodovar APRN, RDaviN. LAB BLOOD ADD-ON Performing Organization Address City/[facility] Code Phon e Number [facility] - [address] [phone] 05 [facility] (ABNORMAL) CBC without Differential (05/08/2019 1:32 AM CDT) [facility] Method Time Signature Hemoglobin 9.3 (L) 11.6 - 05/08/2019 15.0 g/dL 2:08 AM CDT Hematocrit 29.4 (L) 35.5 - 05/08/2019 44.9 % 2:08 AM CDT Erythrocytes 3.19 (L) 3.92 - 05/08/2019 5.13 2:08 AM CDT x10(12)/L MCV 92.2 78.2 - 05/08/2019 97.9 fL 2:08 AM CDT RBC Distrib Width 14.9 12.2 - 05/08/2019 16.1 % 2:08 AM CDT Platelet Count 123 (L) 157 - 371 05/08/2019 x10(9)/L 2:08 AM CDT Leukocytes 11.0 (H) 3.4 - 9.6 05/08/2019 x10(9)/L 2:08 AM CDT Specimen Anatomical Collection Method Collection Time Receive d Time (Source) Location / / Volume Laterality Blood (Blood, 05/08/2019 1:32 AM 05/08/20 1:57 Venous) CDT AM CDT Farzana Almodovar APRN, R.N. LAB BLOOD ADD-ON Performing Organization Address [facility] Phon e Number [facility] - [address] Magnesium (05/08/2019 1:32 AM CDT) P athologist Signature Magnesium, S 1.8 1.7 - 2.3 05/08/2019 mg/dL 2:43 AM CDT Specimen Anatomical Collection Method Collection Time Receive d Time (Source) Location / / Volume Laterality Blood (Blood, 05/08/2019 1:32 AM 05/08/20 1:57 Venous) CDT AM CDT Farzana Almodovar APRN, R.N. LAB BLOOD ADD-ON Performing Organization Address [facility] Phon e Number [facility] - [address] (ABNORMAL) Phosphorus Inorganic (05/08/2019 1:32 AM CDT) P athologist Signature Phosphorus 5.2 (H) 2.5 - 4.5 05/08/2019 (Inorganic), S mg/dL 2:43 AM CDT Specimen Anatomical Collection Method Collection Time Receive d Time (Source) Location / / Volume Laterality Blood (Blood, 05/08/2019 1:32 AM 05/08/20 1:57 Venous) CDT AM CDT Farzana Almodovar APRN, R.N. LAB BLOOD ADD-ON Performing Organization Address City/State/[facility] Phon e Number [facility] - [address] [place] [address] 05 [facility] (ABNORMAL) Basic Metabolic Panel (05/08/2019 1:32 AM CDT) Analysis Performed At Patho logist Time Signature Potassium, S 4.2 3.6 - 5.2 05/08/2019 mmol/L 2:43 AM CDT Sodium, S 137 135 - 145 05/08/2019 mmol/L 2:43 AM CDT Chloride, S 91 (L) 98 - 107 05/08/2019 mmol/L 2:43 AM CDT Bicarbonate, S 27 22 - 29 05/08/2019 mmol/L 2:43 AM CDT Anion Gap 19 (H) 7 - 15 05/08/2019 2:43 AM CDT BUN (Blood Urea 32 (H) 6 - 21 05/08/2019 Nitrogen), S mg/dL 2:43 AM CDT Creatinine 5.56 (H) 0.59 - 05/08/2019 1.04 mg/dL 2:43 AM CDT eGFR-Non <15 (L) >=60 05/08/2019 Black/ mL/min/BSA 2:43 AM CDT Libyan Comment: ----ADDITIONAL INFORMATION---- Estimated GFR calculated using the 2009 CKD_EPI creatinine equation. eGFR-Black/ <15 (L) >=60 mL/min/BSA 2018 2:43 AM CDT Comment: ----ADDITIONAL INFORMATION---- Estimated GFR calculated using the 2009 CKD_EPI creatinine equation. Calcium, Total, S 8.8 8.6 - 10.0 mg/dL 05/08/2019 2:43 AM CDT Glucose, S 139 70 - 140 mg/dL 05/08/2019 2:43 AM CDT Specimen Anatomical Collection Method Collection Time Receive d Time (Source) Location / / Volume Laterality Blood (Blood, 05/08/2019 1:32 AM 05/08/20 1:57 Venous) CDT AM CDT Farzana Almodovar APRN, R.N. LAB BLOOD ADD-ON Performing Organization Address City/[facility] Code Phon e Number [facility] - [address] [place], [place] [address] [facility] Heparin Anti-Xa Assay (05/07/2019 4:41 PM CDT) P athologist Signature Heparin 0.75 IU/mL 05/07/2019 Anti-Xa, P 5:30 PM CDT Comment: UFH therapeutic range: ?? [...] Location / / Volume Laterality Blood (Blood, 05/07/2019 4:41 PM 05/07/20 19 5:03 Venous) CDT PM CDT Farzana Almodovar APRN, R.N. 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 ??Small fluid collections about the graft, likel y postoperative fluid/hematoma. Narrative 05/07/2019 3:40 PM CDT EXAM: US HEMODIALYSIS FISTULA-GRAFT RIGHT Exam performed with color and spectral D oppler analysis. COMPARISON: Left upper extremity AV fist casi ultrasound 03/31/2019 FINDINGS: Location: Right brachial artery to basil ic vein fistula with graft to axillary vein. Arterial: Antegrade flow distal to the f istula. Anastomosis: No evidence of significant stenosis. Outflow vein: Patent without stenosis. Central veins: Patent without stenosis. Branches: None. Mean average flow volume: 860 mL/min. <500 ml/min = low flow 500-800 ml/min = borderline >800 ml/min = normal ?? Additional postoperative edema and small fluid collections about the graft, measuring about 5 cm in greatest dimensi on. Procedure Note Singh Reyez M.D. - 05/07/2019Formatti ng of this note might be different from the original. EXAM: US HEMODIALYSIS FISTULA-GRAFT RIGH T Exam performed with color and spectral D oppler analysis. COMPARISON: Left upper extremity AV fist casi ultrasound 03/31/2019 FINDINGS: Location: Right brachial artery to basil ic vein fistula with graft to axillary vein. Arterial: Antegrade flow distal to the f istula. Anastomosis: No evidence of significant stenosis. Outflow vein: Patent without stenosis. Central veins: Patent without stenosis. Branches: None. Mean average flow volume: 860 mL/min. <500 ml/min = low flow 500-800 ml/min = borderline >800 ml/min = normal Additional postoperative edema and small fluid collections about the graft, measuring about 5 cm in greatest dimensi on. IMPRESSION: Right brachiobasilic arteriovenous fistu la with graft to axillary vein is patent without significant steno sis and with normal flow volume. Small fluid collections about the graft, likel y postoperative fluid/hematoma. Farzana Almodovar APRN, R.N. IMG US PROCEDURES (ABNORMAL) PT (Prothrombin Time) with INR (05/07/2019 10:23 AM CDT) [facility] Method Time Signature Prothrombin 12.9 (H) 9.4 - 12.5 05/07/2019 Time, P sec 10:37 AM CDT INR 1.2 0.9 - 1.1 05/07/2019 10:37 AM CDT Comment: ----ADDITIONAL INFORMATION---- Standard intensity warfarin therapeutic range: 2.0 to 3.0 ?? High intensity warfarin therapeutic rang e: 2.5 to 3.5 Specimen Anatomical Collection Method Collection Time Receive d Time (Source) Location / / Volume Laterality Blood (Blood, 05/07/2019 10:23 05/07/2019 Venous) AM CDT 10:30 AM CDT Farzana Almodovar APRN, R.N. LAB BLOOD ADD-ON Performing Organization Address City/State/ZIP Code Phon e Number [facility] - [address] [place] [address] 05 [facility] APTT (Activated Partial Thromboplastin Time) (05/07/2019 10:23 AM CDT) P athologist Signature Activated 29 25 - 37 sec 05/07/2019 Partial 10:40 AM CDT Thrombopl Time, P Specimen Anatomical Collection Method Collection Time Receive d Time (Source) Location / / Volume Laterality Blood (Blood, 05/07/2019 10:23 05/07/2019 Venous) AM CDT 10:30 AM CDT Farzana Almodovar APRN, R.N. LAB BLOOD ADD-ON Performing Organization Address City/[facility] Code Phon e Number [facility] - [address] [place] [address] 05 [facility] (ABNORMAL) BMP (Basic Metabolic Panel) (05/07/2019 7:43 AM CDT) Analysis Performed At Patho logist Time Signature Potassium, S 6.1 (CH) 3.6 - 5.2 05/07/2019 mmol/L 11:32 AM CDT Sodium, S 140 135 - 145 05/07/2019 mmol/L 11:32 AM CDT Chloride, S 101 98 - 107 05/07/2019 mmol/L 11:32 AM CDT Bicarbonate, S 15 (L) 22 - 29 05/07/2019 mmol/L 11:32 AM CDT Anion Gap 24 (H) 7 - 15 05/07/2019 11:32 AM CDT BUN (Blood Urea 50 (H) 6 - 21 05/07/2019 Nitrogen), S mg/dL 11:32 AM CDT Creatinine 7.88 (H) 0.59 - 05/07/2019 1.04 mg/dL 11:32 AM CDT eGFR-Non <15 (L) >=60 05/07/2019 Black/ mL/min/BSA 11:32 AM CDT Libyan Comment: ----ADDITIONAL INFORMATION---- Estimated GFR calculated using the 2009 CKD_EPI creatinine equation. eGFR-Black/ <15 (L) >=60 mL/min/BSA 2018 11:32 AM CDT Comment: ----ADDITIONAL INFORMATION---- Estimated GFR calculated using the 2009 CKD_EPI creatinine equation. Calcium, Total, S 8.7 8.6 - 10.0 mg/dL 05/07/2019 11:3 2 AM CDT Glucose, S 152 (H) 70 - 140 mg/dL 05/07/2019 11:32 AM CDT Specimen Anatomical Collection Method Collection Time Receive d Time (Source) Location / / Volume Laterality Blood (Blood, 05/07/2019 7:43 AM 05/07/20 7:56 Venous) CDT AM CDT Paul Travis M.D., Ph.D. LAB BLOOD ADD-ON Performing Organization Address [facility] Phon e Number [facility] - [address] [place] [address] [facility] (ABNORMAL) CBC without Differential (05/07/2019 7:43 AM CDT) [facility] Method Time Signature Hemoglobin 9.8 (L) 11.6 - 05/07/2019 15.0 g/dL 8:09 AM CDT Hematocrit 30.7 (L) 35.5 - 05/07/2019 44.9 % 8:09 AM CDT Erythrocytes 3.34 (L) 3.92 - 05/07/2019 5.13 8:09 AM CDT x10(12)/L MCV 91.9 78.2 - 05/07/2019 97.9 fL 8:09 AM CDT RBC Distrib Width 14.9 12.2 - 05/07/2019 16.1 % 8:09 AM CDT Platelet Count 156 (L) 157 - 371 05/07/2019 x10(9)/L 8:09 AM CDT Leukocytes 13.9 (H) 3.4 - 9.6 05/07/2019 x10(9)/L 8:09 AM CDT Specimen Anatomical Collection Method Collection Time Receive d Time (Source) Location / / Volume Laterality Blood (Blood, 05/07/2019 7:43 AM 05/07/20 19 7:56 Venous) CDT AM CDT Paul Travis M.D., Ph.D. LAB BLOOD ADD-ON Performing Organization Address [facility] Phon e Number [facility] - [address] [place] [phone] 05 [facility] (ABNORMAL) CBC without Differential (05/06/2019 8:11 PM CDT) Patholo gist Method Time Signature Hemoglobin 10.5 (L) 11.6 - 05/06/2019 15.0 g/dL 8:47 PM CDT Hematocrit 33.6 (L) 35.5 - 05/06/2019 44.9 % 8:47 PM CDT Erythrocytes 3.64 (L) 3.92 - 05/06/2019 5.13 8:47 PM CDT x10(12)/L MCV 92.3 78.2 - 05/06/2019 97.9 fL 8:47 PM CDT RBC Distrib Width 14.8 12.2 - 05/06/2019 16.1 % 8:47 PM CDT Platelet Count 156 (L) 157 - 371 05/06/2019 x10(9)/L 8:47 PM CDT Leukocytes 12.3 (H) 3.4 - 9.6 05/06/2019 x10(9)/L 8:47 PM CDT Specimen Anatomical Collection Method Collection Time Receive d Time (Source) Location / / Volume Laterality Blood (Blood, 05/06/2019 8:11 PM 05/06/20 19 8:42 Venous) CDT PM CDT Paul Travis M.D., Ph.D. LAB BLOOD ADD-ON Performing Organization Address City/State/ZIP Code Phon e Number [facility] - [address] (ABNORMAL) BMP (Basic Metabolic Panel) (05/06/2019 8:11 PM CDT) Analysis Performed At Patho logist Time Signature Potassium, S 5.7 (H) 3.6 - 5.2 05/06/2019 mmol/L 9:15 PM CDT Sodium, S 138 135 - 145 05/06/2019 mmol/L 9:15 PM CDT Chloride, S 98 98 - 107 05/06/2019 mmol/L 9:15 PM CDT Bicarbonate, S 20 (L) 22 - 29 05/06/2019 mmol/L 9:15 PM CDT Anion Gap 20 (H) 7 - 15 05/06/2019 9:15 PM CDT BUN (Blood Urea 39 (H) 6 - 21 05/06/2019 Nitrogen), S mg/dL 9:15 PM CDT Creatinine 7.06 (H) 0.59 - 05/06/2019 1.04 mg/dL 9:15 PM CDT eGFR-Non <15 (L) >=60 05/06/2019 Black/ mL/min/BSA 9:15 PM CDT Libyan Comment: ----ADDITIONAL INFORMATION---- Estimated GFR calculated using the 2009 CKD_EPI creatinine equation. eGFR-Black/ <15 (L) >=60 mL/min/BSA 2018 9:15 PM CDT Comment: ----ADDITIONAL INFORMATION---- Estimated GFR calculated using the 2009 CKD_EPI creatinine equation. Calcium, Total, S 9.1 8.6 - 10.0 mg/dL 05/06/2019 9:15 PM CDT Glucose, S 146 (H) 70 - 140 mg/dL 05/06/2019 9:15 PM CDT Specimen Anatomical Collection Method Collection Time Receive d Time (Source) Location / / Volume Laterality Blood (Blood, 05/06/2019 8:11 PM 05/06/20 19 8:41 Venous) CDT PM CDT Palu Travis M.D., Ph.D. LAB BLOOD ADD-ON Performing Organization Address City/State/[facility] Code Phon e Number [facility] - [address] Type and Screen (with reflex Antibody ID) (05/06/2019 6:57 PM CDT) Component Value Ref Range Test Analysis Performed Pathologis t Method Time At Signature ABORh O Pos Not 05/06/2019 applicable 7:45 PM CDT Antibody Negative Negative 05/06/2019 Screen 8:01 PM CDT Type & Screen [id number] 05/06/2019 Expiration 7:45 PM CDT Testing [place] DEFAULT 05/06/2019 Location 7:10 PM CDT Specimen Anatomical Collection Method Collection Time Receive d Time (Source) Location / / Volume Laterality Blood (Blood, 05/06/2019 6:57 PM 05/06/20 19 7:10 Venous) CDT PM CDT Farzana Almodovar APRN, R.N. LAB BLOOD BANK TEST ORDERABL ES Performing Organization Address City/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) - Primary Failure Renal End Stage (HCC) Anticoagulant Therapy Complication Dialysis Device Subsequent Obstruction Ureter Chronic Kidney Disease NOS documented in this encounter Admitting Diagnoses Diagnosis Chronic Failure Renal End Stage Renal Di sease Dialysis Dependent (HCC) Failure Renal End Stage (HCC) documented in this encounter Administered Medications Inactive Administered Medications - up to 3 most recent administrations Medication Order MAR Action Action Date Dose Rate Site acetaminophen tablet 1,000 mg Given 05/12/2019 12:12 PM CDT 1,00 0 mg (TYLENOL) 1,000 mg, oral, 4 times daily, First dose on Sun05/06/19 at 2100 Given 05/11/2019 8:22 PM CDT 1,000 mg Given 05/11/2019 4:59 PM CDT 1,000 mg bisacodyl suppository 10 mg (DULCOLAX) Given 05/10/2019 9:27 PM CDT 10 mg 10 mg, rectal, Daily PRN, constipation, Starting on Sun05/09/19 at 1357 calcium carbonate chewable tablet Given 05/10/2019 3:1 8 AM CDT 200 mg of calcium 200 mg of calcium (TUMS) 200 mg of calcium, oral, 3 times daily PRN, heartburn, indigestion, Starting on Sun05/09/19 at 1358, Doses listed are in mg of elemental calcium. Take with food. 500 mg calcium carbonate contains 200 mg of elemental calcium. Given 05/09/2019 2:10 PM CDT 200 mg of calcium calcium carbonate chewable tablet Given 05/08/2019 8:3 6 AM CDT 400 mg of calcium 400 mg of calcium (TUMS) 400 mg of calcium, oral, 3 times daily with meals, First dose on Sun05/07/19 at 1700, Doses listed are in mg of elemental calcium. Take with food. 500 mg calcium carbonate contains 200 mg of elemental calcium. Given 05/08/2019 1:07 AM CDT 400 mg of calcium Given 05/07/2019 6:34 PM CDT 400 mg of calcium calcium carbonate chewable tablet Given 05/12/2019 9:2 0 AM CDT 400 mg of calcium 400 mg of calcium (TUMS) 400 mg of calcium, oral, 2 times daily with meals, First dose (after last modification) on Sun05/08/19 at 1700, Doses listed are in mg of elemental calcium. Take with food--Lunch and Dinner per pt 500 mg calcium carbonate contains 200 mg of elemental calcium. Given 05/11/2019 5:00 PM CDT 400 mg of calcium Given 05/11/2019 7:47 AM CDT 400 mg of calcium cefadroxil capsule 500 mg (DURICEF) Given 05/12/2019 12:12 PM CDT 500 mg 500 mg, oral, Daily, First dose on Sun05/09/19 at 0900, cefadroxil 500 mg daily was interchanged for cephalexin 250 mg oral daily. Give after dialysis on dialysis days., Indications: Skin and soft tissue infection Given 05/11/2019 8:31 AM CDT 500 mg Given 05/10/2019 8:52 AM CDT 500 mg ceFAZolin in NaCl 0.9 % IVPB 2 g New Bag 05/07/2019 1:04 AM CDT 2 g 200 mL/hr (ANCEF) 2 g, intravenous, at 200 mL/hr, Administer over 30 Minutes, Every 8 hours, First dose (after last modification) on Sun05/07/19 at 0100, For 1 dose, Start within 8 hours of last IV dose. premix bag, Drug Monitoring Program: Pharmacist to adjust medication dosing based on indication and drug clearance factors., Indications: Prophylaxis, surgical electrolyte-A solution Continued from OR 05/06/2019 5:30 PM CDT 20 mL/hr 20 mL/hr (PLASMA-LYTE A) 20 mL/hr, intravenous, Continuous, Starting on Sun05/06/19 at 1730, PACU (only) gabapentin capsule 200 mg (NEURONTIN) Given 05/12/2019 12:13 PM CDT 200 mg 200 mg, oral, 2 times daily, First dose on Sun05/06/19 at 2100 Given 05/11/2019 8:22 PM CDT 200 mg Given 05/11/2019 8:31 AM CDT 200 mg heparin (porcine) 1,000 unit/mL injectio n - ADS Override Pull Starting on Sun05/07/19 at 0818, For 1 dose, Created b y cabinet override heparin (porcine) 1,000 unit/mL Given 05/07/2019 12:42 PM CDT 2, 000 Units injection 3,000 Units 3,000 Units (3 mL), intra-catheter, Once, On Sun05/07/19 at 1245, For 1 dose, Dialysis, Dwell in dialysis catheter after dialysis. Dwell only the volume of the dialysis catheter. heparin (porcine) 1,000 unit/mL Given 05/07/2019 12:43 PM CDT 2, 000 Units injection 3,000 Units 3,000 Units (3 mL), intra-catheter, Once, On Sun05/07/19 at 1245, For 1 dose, Dialysis, Dwell in dialysis catheter after dialysis. Dwell only the volume of the dialysis catheter. heparin (porcine) 1,000 unit/mL Given 05/09/2019 11:48 AM CDT 3, 000 Units injection 3,000 Units 3,000 Units (3 mL), intra-catheter, Once, On Sun05/09/19 at 0800, For 1 dose, Dialysis, Dwell in dialysis catheter after dialysis. Dwell only the volume of the dialysis catheter. heparin (porcine) 1,000 unit/mL Given 05/09/2019 11:47 AM CDT 3, 000 Units injection 3,000 Units 3,000 Units (3 mL), intra-catheter, Once, On Sun05/09/19 at 0800, For 1 dose, Dialysis, Dwell in dialysis catheter after dialysis. Dwell only the volume of the dialysis catheter. heparin (porcine) 1,000 unit/mL Given 05/12/2019 11:21 AM CDT 1, 900 Units injection 3,000 Units 3,000 Units (3 mL), intra-catheter, Once, On Sun05/12/19 at 0745, For 1 dose, Dialysis, Dwell in dialysis catheter after dialysis. Dwell only the volume of the dialysis catheter. heparin (porcine) 1,000 unit/mL Given 05/12/2019 11:21 AM CDT 1, 900 Units injection 3,000 Units 3,000 Units (3 mL), intra-catheter, Once, On Sun05/12/19 at 0745, For 1 dose, Dialysis, Dwell in dialysis catheter after dialysis. Dwell only the volume of the dialysis catheter. heparin (porcine) 1,000 unit/mL injection Given 2018 3:49 PM CDT 1.9 Units 3,000 Units 3,000 Units, intra-catheter, Once, On Sun05/10/19 at 1545, For 1 dose, Dialysis, Dwell length of catheter to lock TTDC heparin (porcine) 1,000 unit/mL Given 05/10/2019 3:49 PM CDT 1,9 00 Units injection 3,000 Units 3,000 Units, intra-catheter, Once, On 05/10/19 at 1545, For 1 dose, Dialysis, Dwell length of catheter to lock TTDC heparin (porcine) 100 Units/mL New Bag 05/06/2019 5:57 PM CDT 7 Units/kg/hr 7 mL/hr in D5W 250 mL infusion 7 Units/kg/hr ? 100 kg Dosing weight (7 mL/hr), intravenous, Continuous, Starting on Sun05/06/19 at 1745, Premix ba,000 Units in 250 mL heparin (porcine) 100 New Bag 05/12/2019 4:50 AM CDT 10 Units/kg/h r 10 mL/hr Units/mL in D5W 250 mL infusion 0-40 Units/kg/hr ? 100 kg Dosing weight (0-40 mL/hr), intravenous, Continuous, Starting on Sun05/07/19 at 1000, Premix ba,000 Units in 250 mL, Intensity [...] 6 hours after Heparin resumed Rate/Dose Verify 05/11/2019 5:00 PM CDT 10 Units/kg/hr 10 mL/hr Rate/Dose Verify 05/11/2019 8:00 AM CDT 10 Units/kg/hr 10 mL/hr multivitamin renal failure 1 tablet Given 05/11/2019 4:59 PM CDT 1 tablet (DIALYVITE) 1 tablet, oral, Daily with dinner, First dose on Sun05/07/19 at 1700, give after dialysis on dialysis days Given 05/10/2019 5:34 PM CDT 1 tablet Given 05/09/2019 5:12 PM CDT 1 tablet mycophenolate capsule 250 mg (CELLCEPT) Given 05/12/2019 12:13 PM CDT 250 mg 250 mg, oral, 2 times daily, First dose on Sun05/06/19 at 2100, Swallow whole. Do NOT crush, chew or open capsule. Given 05/11/2019 8:22 PM CDT 250 mg Given 05/11/2019 8:31 AM CDT 250 mg NaCl 0.9 % bolus 100 mL New Bag 05/09/2019 10:43 AM CDT 100 mL 100 mL, intravenous, As needed, low blood pressure, see comments, Starting on Sun05/09/19 at 0748, For 5 doses, Dialysis, Administer as fast as possible. May repeat x 4 for a total volume of 500 mL for symptomatic hypotension during dialysis. Notify Service if symptomatic hypotension persists after blood pressure support interventions were implemented. Bolus from Bag 05/09/2019 9:40 AM CDT 100 mL NaCl 0.9 % bolus 100 mL New Bag 05/12/2019 8:57 AM CDT 100 mL 100 mL, intravenous, As needed, low blood pressure, see comments, Starting on Sun05/12/19 at 0739, For 5 doses, Dialysis, Administer as fast as possible. May repeat x 4 for a total volume of 500 mL for symptomatic hypotension during dialysis. Notify Service if symptomatic hypotension persists after blood pressure support interventions were implemented. nebivolol tablet 10 mg (BYSTOLIC) Given 05/12/2019 12:13 PM CDT 10 mg 10 mg, oral, Daily, First dose on Sun05/07/19 at 0900 Given 05/11/2019 8:31 AM CDT 10 mg Given 05/10/2019 8:54 AM CDT [address] capsule 40 mg (PriLOSEC) Given 05/12/2019 5:02 AM CDT 40 mg 40 mg, oral, 2 times daily before breakfast and dinner, First dose on 05/11/19 at 0700, Do NOT crush or chew. Capsule may be opened and the contents taken without crushing or chewing. Given 05/11/2019 5:05 PM CDT 40 mg Given 05/11/2019 9:49 AM CDT 40 mg ondansetron (PF) injection 4 mg (ZOFRAN) Given 05/10/2019 4:17 PM CDT 4 mg 4 mg, intravenous, Every 6 hours PRN, nausea, vomiting, Starting on 05/10/19 at 1034 oxyCODONE IR tablet 10 mg (ROXICODONE) Given 05/12/2019 12:28 PM CDT 10 mg 10 mg, oral, Every 4 hours PRN, severe pain or score 7-10 of 10, Starting on 05/06/19 at 1905, Administer if pain is unrelieved by acetaminophen. Do not give more than 10 mg of oxycodone in 4 hours. Begin oral narcotics ONLY when tolerating oral diet. Given 05/11/2019 10:34 PM CDT 10 mg Given 05/09/2019 8:17 PM CDT 10 mg oxyCODONE IR tablet 5 mg (ROXICODONE) Given 05/11/2019 12:08 PM CDT 5 mg 5 mg, oral, Every 4 hours PRN, mild pain or score 1-3 of 10, moderate pain or score 4-6 of 10, Starting on 05/06/19 at 1905, Administer if pain is unrelieved by acetaminophen. May repeat dose once after 1 hour for persistent pain not to exceed 10 mg in 4 hours. Begin oral narcotics ONLY when tolerating oral diet. Given 05/11/2019 6:46 AM CDT 5 mg Given 05/10/2019 5:39 PM CDT [address] tablet 40 mg (PROTONIX) Given 05/10/2019 6:14 AM CDT 40 mg 40 mg, oral, Daily before breakfast, First dose on 05/09/19 at 0945, pantoprazole 40 mg oral daily was interchanged for omeprazole 20 or 40 mg oral daily Swallow whole. Do NOT crush, chew, or split tablet. Given 05/09/2019 12:25 PM CDT 40 mg polyethylene glycol powder packet 17 g Given 05/11/2019 7:54 AM CDT 17 g (MIRALAX) 17 g, oral, Daily, First dose on Sun05/09/19 at 0945, Dissolve in 240 mLs (8 ounces) of water prior to giving. Avoid mixing with starch-based thickened liquids. Given 05/10/2019 8:55 AM CDT 17 g Given 05/09/2019 12:25 PM CDT 17 g polyethylene glycol powder packet 17 g Given 05/10/2019 4:17 PM CDT 17 g (MIRALAX) 17 g, oral, Daily PRN, constipation, Starting on 05/10/19 at 1345, Dissolve in 240 mLs (8 ounces) of water prior to giving. Avoid mixing with starch-based thickened liquids. predniSONE tablet 5 mg (DELTASONE) Given 05/12/2019 12:13 PM CDT 5 mg 5 mg, oral, Daily, First dose on Sun05/07/19 at 0900, For 22 days Given 05/11/2019 8:31 AM CDT 5 mg Given 05/10/2019 8:54 AM CDT 5 mg rosuvastatin tablet 5 mg (CRESTOR) Given 05/12/2019 12:12 PM CDT 5 mg 5 mg, oral, Daily, First dose on Sun05/07/19 at 0900 Given 05/11/2019 8:31 AM CDT 5 mg Given 05/10/2019 8:54 AM CDT 5 mg sennosides-docusate sodium 8.6-50 mg per Given 05/11/2019 8: 23 PM CDT 2 tablets tablet 2 tablet (SENOKOT-S) 2 tablet, oral, 2 times daily, First dose on Sun05/09/19 at 0945 Given 05/11/2019 8:31 AM CDT 2 tablets Given 05/10/2019 8:36 PM CDT 2 tablets sevelamer tablet 800 mg (RENAGEL) Given 05/12/2019 9:20 AM CDT 800 mg 800 mg, oral, Daily, First dose on Sun05/09/19 at 0900, With breakfast Swallow whole. Do NOT crush, chew, or split tablet. Given 05/11/2019 8:31 AM CDT 800 mg Given 05/10/2019 8:54 AM CDT 800 mg sevelamer tablet 800 mg (RENVELA) Given 05/07/2019 8:04 AM CDT 800 mg 800 mg, oral, 3 times daily with meals, First dose on Sun05/07/19 at 0800, For 73 days sodium chloride 0.9 % flush 1-250 mL Given 05/10/2019 1:10 PM CDT 250 mL 1-250 mL, intravenous, As needed, line care, For priming and rinse back post dialysis, Starting on Sun05/10/19 at 1258, Dialysis, Dialysis order only. sodium chloride 0.9 % flush 100 mL Given 05/12/2019 10:57 AM CDT 100 mL 100 mL, intravenous, As needed, line care, Starting on Sun05/12/19 at 0739, Dialysis, For anticoagulation line to maintain patency of dialysis circuit. Given 05/12/2019 9:57 AM CDT 100 mL sodium chloride 0.9 % flush 250 mL Given 05/07/2019 9:07 AM CDT 250 mL 250 mL, intravenous, As needed, line care, For priming and rinse back post dialysis, Starting on Sun05/07/19 at 0844, Dialysis, Dialysis order only. sodium chloride 0.9 % flush 250 mL Given 05/09/2019 8:54 AM CDT 250 mL 250 mL, intravenous, As needed, line care, For priming and rinse back post dialysis, Starting on Sun05/09/19 at 0748, Dialysis, Dialysis order only. sodium chloride 0.9 % flush 250 mL Given 05/12/2019 8:57 AM CDT 250 mL 250 mL, intravenous, As needed, line care, For priming and rinse back post dialysis, Starting on Sun05/12/19 at 0739, Dialysis, Dialysis order only. sodium chloride 0.9 % injection 10-60 mL Given 05/12/2019 8:58 AM CDT 40 mL 10-60 mL, intravenous, As needed, line care, Hemodialysis Catheter and High Flow Catheter Without Tego?? Caps, Starting on Sun05/09/19 at 0858, Prior to and following infusion, between multiple consecutive infusions and prior to dialysis treatment Given 05/10/2019 3:27 PM CDT 19 mL Given 05/10/2019 1:11 PM CDT 19 mL tacrolimus capsule 2 mg (PROGRAF) Given 05/12/2019 12:12 PM CDT 2 mg 2 mg, oral, 2 times daily, First dose on Sun05/06/19 at 2100 Given 05/11/2019 8:22 PM CDT 2 mg Given 05/11/2019 8:31 AM CDT 2 mg warfarin management (COUMADIN) oral, Daily, First dose on Sun05/07/19 at 1000, Pharma cist to Dose: Yes, Target INR: 2 - 3, Comorbidities that constitute Warfarin Sen sitivity: No known comorbidities that change warfarin sensitivity, Indica tion: Other, Explanatory Comment: AV graft, Therapy type: Resume Warfarin thera py warfarin tablet 3 mg (COUMADIN) Given 05/07/2019 5:24 PM CDT 3 mg 3 mg, oral, Once, On Sun05/07/19 at 1700, For 1 dose warfarin tablet 3 mg (COUMADIN) Given 05/08/2019 4:39 PM CDT 3 mg 3 mg, oral, Once, On Sun05/08/19 at 1700, For 1 dose warfarin tablet 4 mg (COUMADIN) Given 05/09/2019 5:12 PM CDT 4 mg 4 mg, oral, Once, On Sun05/09/19 at 1700, For 1 dose warfarin tablet 4 mg (COUMADIN) Given 05/10/2019 5:34 PM CDT 4 mg 4 mg, oral, Once, On 05/10/19 at 1700, For 1 dose warfarin tablet 4 mg (COUMADIN) Given 05/11/2019 5:00 PM CDT 4 mg 4 mg, oral, Once, On Sun05/11/19 at 1700, For 1 dose documented in this encounter Active and Recently Administered Medications Times are shown in CDT. Scheduled Medication Order 05/10/2019 05/11/2019 05/12/2019 acetaminophen tablet 1,000 mg (TYLENOL) 0853 (Given - Provider: Rocío Jameson R.N.)1342 (Not Given - Provider: Rocío Jameson R.N. - Reason: Patient/family refused)8983 (Given - Provider: Rocío Jameson R.N.)2545 (Given - Provider: Catrachita Johnson R.N.) 0762 (Given - Provider: Rocío Jameson R.N.)1208 (Given - Provider: Rocío Jameson R.N.)1659 (Given - Provider: Rocío Jameson R.N.)202 (Given - Provider: Raiza Johnson R.N.) 0954 (Not Given - Provider: Nicole Parson R.N., AMANDA - Reason: Patient/family refused - Comment: pt refused - saying it would be dialyzed off anyway.)1212 (Given - Provider: Dara Davis R.N.) 1,000 mg, oral, 4 times daily, First dose on Sun05/06/19 at 2100 calcium carbonate chewable tablet 400 mg of calcium (T UMS) 0853 (Given - Provider: Rocío Jameson R.N.)1734 (Given - Provider: Rocío Jameson R.N.) 0747 (Given - Provider: Rocío Jameson R.N.)1700 (Given - Provider: Rocío Jameson R.N.) 0920 (Given - Provider: Ann Smith, JEFN) 400 mg of calcium, oral, 2 times daily w ith meals, First dose (after last modification) on Sun05/08/19 at 1700, Doses listed are in mg of elemental calcium. Take with food--Lunch and Dinner per pt 500 m g calcium carbonate contains 200 mg of elemental calcium. cefadroxil capsule 500 mg (DURICEF) 0852 (Given - Prov ider: Rocío Jameson R.N.) 0831 (Given - Provider: Rocío Jameson R.N.) 1212 (G iven - Provider: Dara Davis RRalf) 500 mg, oral, Daily, First dose on Sun at 0900, cefadroxil 500 mg daily was interchanged for cephalexin 250 mg oral daily. Give after dialysis on dialysis days., Indications: Skin and soft tissue infection gabapentin capsule 200 mg (NEURONTIN) 0854 (Given - Pr ovider: Rocío Jameson R.N.)203 (Given - Provider: Raiza Johnson R.N.) 0831 (Given - Provider: Rocío Jameson R.N.)2022 (Given - Provider: Raiza Johnson RDaviNDavi) 1213 (Given - Provider: Ann HerrmannNDavi) 200 mg, oral, 2 times daily, First dose on Sun05/06/19 at 2100 heparin (porcine) 1,000 unit/mL injection 3,000 Units (COMPLETED ) 1121 (Given - Provider: Ann PereiraNDavi) 3,000 Units (3 mL), intra-catheter, Once , On Sun05/12/19 at 0745, For 1 dose, Dialysis, Dwell in dialysis catheter after dialysis. Dwell only the volume of the dialysis catheter. heparin (porcine) 1,000 unit/mL injection 3,000 Units (COMPLETED ) 1121 (Given - Provider: Seema Mcpherson RDaviNDavi) 3,000 Units (3 mL), intra-catheter, Once , On Sun05/12/19 at 0745, For 1 dose, Dialysis, Dwell in dialysis catheter after dialysis. Dwell only the volume of the dialysis catheter. heparin (porcine) 1,000 unit/mL injection 3,000 Units (COMPLETED) 1549 (Given - Provider: Lucio Ma R.N.) 3,000 Units, intra-catheter, Once, On Sa t 05/10/19 at 1545, For 1 dose, Dialysis, Dwell length of catheter to lock TTDC heparin (porcine) 1,000 unit/mL injection 3,000 Units (COMPLETED) 1549 (Given - Provider: Lucio Ma R.N.) 3,000 Units, intra-catheter, Once, On Sa t 05/10/19 at 1545, For 1 dose, Dialysis, Dwell length of catheter to lock TTDC mineral oil-glycerin enema 1 enema 1400 (Due) 1 enema, rectal, Once, 05/10/19 at 1400, For 1 dose multivitamin renal failure 1 tablet (DIALYVITE) 1734 ( Given - Provider: Rocío Jameson RDaviNDavi) 1659 (Given - Provider: Ann QuinonezNDavi) 1 tablet, oral, Daily with dinner, First dose on Sun05/07/19 at 1700, give after dialysis on dialysis days mycophenolate capsule 250 mg (CELLCEPT) 0853 (Given - Provider: Rocío Jameson R.N.)2035 (Given - Provider: Raiza Johnson R.N.) 0831 (Given - Provider: Rocío Jameson R.N.)202 (Given - Provider: Raiza Johnson R.N.) 1213 (Given - Provider: Ann HerrmannNDavi) 250 mg, oral, 2 times daily, First dose on Sun05/06/19 at 2100, Swallow whole. Do NOT crush, chew or open capsule. nebivolol tablet 10 mg (BYSTOLIC) 0854 (Given - Provid er: Rocío Jameson R.N.) 0831 (Given - Provider: Rocío Jameson R.N.) 1213 (G iven - Provider: Ann HerrmannNDavi) 10 mg, oral, Daily, First dose on Sun05/07/[address] capsule 40 mg (PriLOSEC) 0 949 (Given - Provider: Rocío Jameson R.N.)1705 (Given - Provider: Ann QuinonezNDavi) 0502 (Given - Provider: Raiza Johnson R.N.)0700 (Canceled Entry - Provider: Raiza Johnson R.N.) 40 mg, oral, 2 times daily before breakf ast and dinner, First dose on Sun05/11/19 at 0700, Do NOT crush or chew. Capsule may be opened and the contents taken without crushing or chewing. pantoprazole DR tablet 40 mg (PROTONIX) (CANCELED) 061 4 (Given - Provider: Ann GandaraNDavi) 40 mg, oral, Daily before breakfast, Fir st dose on Sun05/09/19 at 0945, pantoprazole 40 mg oral daily was interchanged for omeprazole 20 or 40 mg oral daily Swallow whole. Do NOT crush, chew, or split tablet. polyethylene glycol powder packet 17 g (MIRALAX) 0855 (Given - Provider: Rocío Jameson R.N.) 0754 (Given - Provider: Ann QuinonezNDavi) 0900 (D ue) 17 g, oral, Daily, First dose on 04/21 at 0945, Dissolve in 240 mLs (8 ounces) of water prior to giving. Avoid mixing with starch-based thickened liquids. predniSONE tablet 5 mg (DELTASONE) 0854 (Given - Provi kristi: Rocío Jameson R.N.) 0831 (Given - Provider: Rocío Jameson R.N.) 1213 (G iven - Provider: Dara Davis RDaviNDavi) 5 mg, oral, Daily, First dose on Sun05/07/19 at 0900, For 22 day s rosuvastatin tablet 5 mg (CRESTOR) 0854 (Given - Provi kristi: Rocío Jameson R.N.) 0831 (Given - Provider: Rocío Jameson R.N.) 1212 (Edinson ivsunny - Provider: Ann HerrmannNDavi) 5 mg, oral, Daily, First dose on Sun05/07/19 at 0900 sennosides-docusate sodium 8.6-50 mg per tablet 2 tabl et (SENOKOT-S) 0859 (Given - Provider: Rocío Jameson R.N.)2035 (Given - Provider: Raiza Johnson R.N.) 0831 (Given - Provider: Ann QuinonezNDavi)2022 (Given - Provider: Ann GandaraN.) 0900 (Due) 2 tablet, oral, 2 times daily, First dose on Sun05/09/19 at 0945 sevelamer tablet 800 mg (RENAGEL) 0854 (Given - Provid er: Ann QuinonezN.) 0831 (Given - Provider: Ann QuinonezN.) 0920 (G iven - Provider: Nicole Parson R.N., CPN) 800 mg, oral, Daily, First dose on Sun at 0900, With breakfast Swallow whole. Do NOT crush, chew, or split tablet. tacrolimus capsule 2 mg (PROGRAF) 0859 (Given - Provid er: Ann QuinonezNDavi)2035 (Given - Provider: Raiza Johnson R.N.) 0831 (Given - Provider: Rocío Jameson R.N.)2021 (Given - Provider: Raiza Johnson R.N.) 1212 (Given - Provider: Ann HerrmannNDavi) 2 mg, oral, 2 times daily, First dose on Sun05/06/19 at 2100 warfarin management (COUMADIN) 1700 (Due) 1700 (Due) oral, Daily, First dose on Sun05/07/19 a t 1000, Pharmacist to Dose: Yes, Target INR: 2 - 3, Comorbidities that constitute Warfarin Sensitivity: No known comorbidities that change warfarin sensitivity, I ndication: Other, Explanatory Comment: A V graft, Therapy type: Resume Warfarin therapy warfarin tablet 4 mg (COUMADIN) (COMPLETED) 173 (Give n - Provider: Rocío Jameson R.N.) 4 mg, oral, Once, On 05/10/19 at 1700, For 1 dose warfarin tablet 4 mg (COUMADIN) (COMPLETED) 170 (Given - Provider: Rocío Jameson R.N.) 4 mg, oral, Once, On 05/11/19 at 1700, For 1 dose Continuous Medication Order 05/10/2019 05/11/2019 05/12/2019 heparin (porcine) 100 Units/mL in D5W 250 mL infusion (CANCELED) 0311 (New Bag - Provider: Raiza Johnson R.N.)0659 (Handoff - Provider: Raiza Johnson R.N.)0840 (Rate/Dose Verify - Provider: Rocío Jameson R.N.)1900 (Handoff - Provider: Raiza Johnson R.N.) 0431 (New Bag - Provider: Deo Mckoy R.N.)0800 (Rate/Dose Verify - Provider: Rocío Jameson R.N.)1700 (Rate/Dose Verify - Provider: Rocío Jameson R.N.)1948 (Handoff - Provider: Raiza garrison RRalf) 0450 (New Bag - Provider: Raizaalen burk R.N.)0624 (Handoff - Provider: Raiza Johnson R.N.)0789 (Stopped - Provider: Dara Davis R.N. - Comment: per verbal order from [employer] 0-40 Units/kg/hr ? 100 kg Dosing weight (0-40 mL/hr), intravenous, Continuous, Starting on Sun05/07/19 at 1000, Premix ba,000 Units in 250 mL, Intensity type: Moderate, Start infusion at: 12 units 2300 (Handoff - Provider: Raiza Johnson R.N.) /kg/hr, antiXa level: Less than 0.1: IV push loading dose 60 units/kg; Continue infusion; Increase IV rate 4 units/kg/hour; Repeat antiXa: 6 hours, antiXa level: 0.1-0.19: IV push loading dose 30 units/ kg; Continue infusion; Increase IV rate 2 units/kg/hour; Repeat antiXa: 6 hours, antiXa level: 0.2-0.5: No loading dose; Continue infusion; No change in IV rate; Repeat antiXa: 1st level, recheck at 6 h ours then 2nd check and beyond, Next a.m ., antiXa level: 0.51-0.6: No loading dose; Continue infusion; Decrease IV rate 1 unit/kg/hour; Repeat antiXa: 6 hours after rate change, antiXa level: 0.61-0.9: No loading dose; Stop infusion for 1 willie r; Decrease IV rate 2 units/kg/hour; Repeat antiXa: 6 hours after Heparin resumed, antiXa level: 0.91 or greater: No loading dose; Stop infusion for 2 hours; Decr ease IV rate 4 units/kg/hour; Repeat antiXa: 6 hours after Hepar in resumed PRN Medication Order 05/10/2019 05/11/2019 05/12/2019 bisacodyl suppository 10 mg (DULCOLAX) 2127 (Given - P rovider: Raiza Johnson R.N.) 10 mg, rectal, Daily PRN, constipation, Starting on Sun05/09/19 at 1357 calcium carbonate chewable tablet 200 mg of calcium (T UMS) 0318 (Given - Provider: Raiza Johnson R.N.) 200 mg of calcium, oral, 3 times daily P RN, heartburn, indigestion, Starting on Sun05/09/19 at 1358, Doses listed are in mg of elemental calcium. Take with food. 500 mg calcium carbonate contains 200 mg of elemental calcium. NaCl 0.9 % bolus 100 mL (CANCELED) 0857 (New Bag - Provider: Nicole Parson R.N., CPN - Comment: For line patency) 100 mL, intravenous, As needed, low bloo d pressure, see comments, Starting on Sun05/12/19 at 0739, For 5 doses, Dialysis, Administer as fast as possible. May repeat x 4 for a total volume of 500 mL for symptomatic hypotension during dialysis. Notify Service if symptomatic hypotension persists after blood pressure support interventions were implemented. naloxone injection 0.2 mg (NARCAN) 0.2 mg, intravenous, As needed, respirat ory depression, Starting Sun05/06/19 at 1905, For respiratory rate less than 8 breaths per minute or RASS score of -3, - 4, -5. Apply oxygen to keep oxygen saturations greater than 90% and notify service. ondansetron (PF) injection 4 mg (ZOFRAN) 1617 (Given - Provider: Rocío Jameson R.N.) 4 mg, intravenous, Every 6 hours PRN, na usea, vomiting, Starting on Sun05/10/19 at 1034 oxyCODONE IR tablet 10 mg (ROXICODONE) 2 234 (Given - Provider: Raiza Johnson R.N.) 1228 (Given - Provider: Dara Davis R Ralf) 10 mg, oral, Every 4 hours PRN, severe p ain or score 7-10 of 10, Starting on Sun05/06/19 at 1905, Administer if pain is unrelieved by acetaminophen. Do not give more than 10 mg of oxycodone in 4 hours. Begin oral narcotics ONLY when tolerating oral diet. oxyCODONE IR tablet 5 mg (ROXICODONE) 1739 (Given - Pr ovider: Rocío Jameson R.N.) 0646 (Given - Provider: Raiza macias RDaviN.)1208 (Given - Provider: Rocío Jameson RDaviNDavi) 5 mg, oral, Every 4 hours PRN, mild pain or score 1-3 of 10, moderate pain or score 4-6 of 10, Starting on Tu05/06/19 at 1905, Administer if pain is unrelieved by acetaminophen. May repeat dose once af ter 1 hour for persistent pain not to ex ceed 10 mg in 4 hours. Begin oral narcotics ONLY when tolerating oral diet. polyethylene glycol powder packet 17 g (MIRALAX) 1617 (Given - Provider: Rocío Jameson, R.N.) 17 g, oral, Daily PRN, constipation, Sta rting on 05/10/19 at 1345, Dissolve in 240 mLs (8 ounces) of water prior to giving. Avoid mixing with starch-based thickened liquids. sodium chloride 0.9 % flush 1-250 mL (CANCELED) 1310 ( Given - Provider: Lucio Ma RDaviNDavi) 1-250 mL, intravenous, As needed, line c are, For priming and rinse back post dialysis, Starting on 05/10/19 at 1258, Dialysis, Dialysis order only. sodium chloride 0.9 % flush 100 mL (CANCELED) 0957 (Given - Provider: Angela Mayen RDaviN.)1057 (Given - Provider: Seema Mcpherson RDaviNDavi) 100 mL, intravenous, As needed, line car e, Starting on Sun05/12/19 at 0739, Dialysis, For anticoagulation line to maintain patency of dialysis circuit. sodium chloride 0.9 % flush 250 mL (CANCELED) 0857 (Given - Provider: Nicole Parson RRalf, CPN) 250 mL, intravenous, As needed, line car e, For priming and rinse back post dialysis, Starting on Sun05/12/19 at 0739, Dialysis, Dialysis order only. sodium chloride 0.9 % injection 10-60 mL 1311 (Given - Provider: Lucio Ma, R.N.)1527 (Given - Provider: Lucio Ma R.N.) 0858 (Given - Provider: Nicole Parson RRalf, CPN) 10-60 mL, intravenous, As needed, line c are, Hemodialysis Catheter and High Flow Catheter Without Tego?? Caps, Starting on Sun05/09/19 at 0858, Prior to and following infusion, between multiple consecutive infusions and prior to dialysis treatment documented in this encounter Additional Health Concerns Assessment Noted Time PHQ-9 Depression Total Score: 4 01/30/2019 12:13 PM CD T documented as of this encounter
--- OUTSIDE RECORDS SUMMARY | 2022-05-25 13:21 | XMS_ITS | Encounter Summary ---
:1960 Author Organization [facility] Address [address] [place] [address] Care Team Providers Name Role Phone Unavailable Primary Care Provider Unavailable Encounter Details Date Type Department Care Team Description 05/02/2019 Documentation Division of Nephrology and Josr Martínez Hypertension in [place], ., D.O. [place] [address] [facility] [address] [place] [id number] [phone] (Wo rk) Social History Tobacco Use Types Packs/Day Years Used Date Smoking Tobacco: Every Day Smokeless Tobacco: Never Alcohol Habits Answer Date Recorded How often [...] How often do you attend congregation or anglican 1 to 4 times per [...] Progress Notes Steve Martínez Jr., D.O. - 05/02/2019 6:29 AM CDT Phone call note and documentation of care: I received a phone call every day this past week at 12:05 a.m. 45 regards her dialysis access. She had a new catheter placed last Sunday, and dialyzed in [place]. Since that time, she has required Activase on Sunday, Sunday, and again today. With the Activase-usually in the venous limb of her catheter, we are usually able to achieve blood flows of 300 cc/minute. In addition to this being cost prohibitive, this is unstable from a scheduling perspective. We have replaced her catheter now 4 times. I have requested that we attempt if at all possible to switch the line from the left to the right internal jugular venous system, assuming the previous thrombus has resolved. I suspect that there are mechanical issues with the ongoing her occlusion of her catheter, from the placement position, and anatomy. She has failed to improve with low-dose Coumadin which has been successful increasing her INR to 1.3. She is set for creation of a new fistula in her right upper extremity on the 08 of May. We likely have another 2 months until we can utilize this access. She is not a candidate for peritoneal dialysis due to her innumerable previous events of peritonitis. As per my previous notes, this is a life-threatening situation. Impression report plan: 1. End-stage renal disease 2. Repeat dysfunction of left-sided tunneled dialysis catheter: She has been refractory to attempts at oral anticoagulation, has had very poor dialysis delivery, and needs a new catheter. Rather than simply rewiring, or replacing the catheter in the same position, I am earnestly requesting to attempt a different approach, and consider a right-sided catheter. We will plan for have a catheter done on Sunday when there is a bit more time to investigate having an adequate catheter placed. Today we will again use tPA to get her a life-sustaining dialysis session. Her Coumadin has been placed on hold. documented in this encounter Plan of Treatment Upcoming Encounters Date Type Specialty Care Team Description 06/01/2022 Telemedicine Pharmacy An Nicholas APRN, C.N.P., D.N.P., M.S.N. [address] [place] [address] [phone] (Wo rk) 07/31/2022 Lab Laboratory Medicine Tony Rubalcava M. B., Sydnie, MDebra [address] [place] [address] [phone] (Wo rk) 07/31/2022 Lab Laboratory Medicine Tony Rubalcava M. B., Sydnie, MDebra [address] [place] [address] [phone] (Wo rk) 07/31/2022 Office Visit Transplant Tony Rubalcava M.B., ChBurke, MDebra [address] [place] [address] [phone] (Wo rk) 07/31/2022 Appointment Radiology Tony Rubalcava M.B., Sydnie, MDebra [address] [place] [address] [phone] (Wo rk) 08/01/2022 Office Visit Transplant Tony Rubalcava M.B., Sydnie, [place] [address] [place] [address] [place] [phone] (Wo rk) 08/01/2022 Clinical Support Transplant Tony Rubalcava M.B., [place] [address] [place], [place] [phone] (Wo rk) documented as of this encounter Visit Diagnoses Not on filedocumented in this encounter Additional Health Concerns Assessment Noted Time PHQ-9 Depression Total Score: 4 01/30/2019 12:13 PM CD T documented as of this encounter
--- OUTSIDE RECORDS SUMMARY | 2022-05-25 13:21 | XMS_ITS | Encounter Summary ---
:1960 Author Organization [facility] Address [address] [place] [address] Care Team Providers Name Role Phone Unavailable Primary Care Provider Unavailable Encounter Details Date Type Department Care Team Description 05/06/2019 Surgery RST ROMB MAIN OR Guillermo Yu, Right arm [address] [place] br[place] [address] [facility] using 6mm propaten graft [phone] [place] [phone] Social History Tobacco Use Types Packs/Day Years [...] How often do you attend latter-day or pentecostal 1 to 4 times per [...] Sign Reading Time Taken Comments Blood Pressure 195/117 05/06/2019 7:10 AM CDT Pulse 63 05/06/2019 7:10 AM CDT Temperature 37 ??C (98.6 ??F) 05/06/2019 7:10 AM CDT Respiratory Rate 15 05/06/2019 7:10 AM CDT Oxygen Saturation 98% 05/06/2019 7:10 AM CDT Inhaled Oxygen Concentration - - Weight 100 kg (220 lb 7.4 oz) 05/06/2019 7:10 AM CDT Height 164 cm (5' 4.57) 05/06/2019 7:10 AM CDT Body Mass Index 37.81 05/06/2019 7:10 AM CDT documented in this encounter Discharge Summaries Lola Marques, CHRISTOPHER, C.N.P. - 05/12/2019 11:43 AM CDT DISCHARGE [...] been made for 05/15/19 at 11:30am at [facility], [facility], [facility], [facility] It is recommended that an INR be checked on 05/14/19 at the [facility] ([address] [place] [address], [place]) at 1pm with Cecille Lovett. A follow-up [...] you may do so through his medical dosimetrist at during normal business hours of 8 to 5 Sunday through Sunday or, in an emergency situation, through the [place] vertical punch operator at . OUTPATIENT FOLLOW UP Future Appointments Date Time Provider Department Center 05/15/2019 11:30 AM VAS GRAHAM 01 ROMB VAS ROMB RST Spec 06/03/2019 8:30 AM US ROGO 04 RM 07 RAD US ROGO4 RST Spec 06/03/2019 10:30 AM REE DLS NURSE 01 CESAR GUERRERO RST Spec [...] of bowel obstruction. Distention of the stomach. Hemodialysis Fistula-graft Right Result Date: 05/11/2019 Impression: [...] documented in this encounter Discharge Instructions Discharge InstructionsCesar Chadwick R.N. - 05/08/2019 10:42 AM CDT OUTPATIENT DIALYSIS: Patient to resume Sunday, Sunday, Sunday dialysis at [facility], [place] , [place], [place] [phone] documented in this encounter Medications at Time of Discharge Medication Sig Dispensed Refills Start Date End Date hydrocortisone Apply 1 application 0 09/18/2017 (for_HYTONE) 2.5 % topically daily as cream needed (Eczema). B complex Take 1 tablet by 0 06/13/2017 05/31/20 19 03-mtirg-B-biot-zinc mouth daily. (DIALYVITE) [id number] qm-tt-mnq-mg tablet calcium carbonate Chew 2 tablets 2 [...] pain. lidocaine-prilocaine Apply 1 application 30 g 201709/15/2019 (EMLA) 2.5-2.5 % cream topically as [...] this encounter Progress Notes Deanne Fisher APRN, CDaviNDaviP., M.S.N. - 05/12/2019 11:29 AM CDT SUBJECTIVE [...] extra session for fluid removal at the [facility] outpatient dialysis, though she would prefer to [...] setting of failed renal transplant, maintained on [facility] hemodialysis #2 Status post right brachioaxillary [...] dialysis is planned for Sunday at the [facility] outpatient dialysis unit. Continued recommendations: -- Ok to continue with a general diet -- Continue Dialyvite, one tablet each evening -- Hectorol will not be administered in the inpatient setting due to not being on the [facility] formulary. This will be resumed in the outpatient dialysis setting. -- Continue outpatient immunosuppressive regimen which includes mycophenolate 250 mg twice daily, prednisone 5 mg daily, and tacrolimus 2 mg twice daily. -- Ms. Wray has follow up arranged with the anticoagulation clinic in [place] this Sunday, May 14, 2019 -- Please [...] We will review the anemia protocol at [facility], once she is euvolemic, and consider initiating [...] or concerns, please page the Nephrology A YEAST MAKER/PA pager ([phone]). Associated attestation - Bill Ruiz M.D. - [...] to contact Dr. Yu's Service with questions TOT Josh Rojas PharmDaviD., R.Ph. - 05/11/2019 8:44 AM CDT Warfarin [...] from the hospital. Josh Rojas Pharm.D., R.Ph. TOT Mihir Zamarripa M.D., Ph.D. - 05/10/2019 11:48 AM CDT I evaluated Ms. Wray with Leatha Henley [address]. I confirmed the iglesias elements of the [...] any additional questions or concerns. Nora Henley APRN C.N.P., M.S.N. - 05/10/2019 9:21 AM CDT [...] 62 Intake/Output Summary (Last 24 hours) at 05/10/2019 0921 Last data filed at 05/10/2019 0400 Gross [...] setting of failed renal transplant, maintained on [facility] hemodialysis #2 Status post right brachioaxillary [...] to not being on the [facility] formulary. This will be resumed in the outpatient dialysis setting. -- Continue outpatient immunosuppressive regimen which includes mycophenolate 250 mg twice daily, prednisone 5 mg daily, and tacrolimus 2 mg twice daily. -- Ms. Wray will need to be set up for follow up with an anticoagulation clinic in [facility] at the time of discharge. -- Please [...] or concerns, please page the Nephrology A YEAST MAKER/PA pager ([phone]). Josh Rojas, PharmDaviD., R.Ph. - 05/10/2019 8:27 AM CDT Warfarin [...] Pharm.D., R.Ph. Mihir Zamarripa M.D., Ph.D. - 05/09/2019 10:28 AM CDT I evaluated Ms. Wray with Ms. Fisher [address]. I confirmed the iglesias elements of the history. I agree with the findings, assessment and plan of care as outlined in the note. Mihir Zamarripa M.D., Ph.D. Jon Serrano, Pharm.D., R.Ph. - 05/09/2019 9:44 AM CDT [...] daily until discharge from the hospital. Jon Serrano Pharm.D., R.Ph. Deanne Fisher APRN, C.N.P., M.S.N. - [...] to not being on the [facility] formulary. This will be resumed in the outpatient dialysis setting. -- Continue outpatient immunosuppressive regimen which includes mycophenolate 250 mg twice daily, prednisone 5 mg daily, and tacrolimus 2 mg twice daily. -- Ms. Wray will need to be set up for follow up with an anticoagulation clinic in [facility] at the time of discharge. -- Please [...] or concerns, please page the Nephrology A YEAST MAKER/PA pager ([phone]). Paul Travis M.D., Ph.D. - 05/09/2019 8:07 [...] the hospital. Elena Mitchell, Pharm.D., R.Ph. Contact [phone] with any questions about this note. Deanne [...] setting of failed renal transplant, maintained on [facility] hemodialysis #2 Status post right brachioaxillary [...] to not being on the [facility] formulary. This will be resumed in the outpatient dialysis setting. -- Continue outpatient immunosuppressive regimen which includes mycophenolate 250 mg twice daily, prednisone 5 mg daily, and tacrolimus 2 mg twice daily. -- Ms. Wray will need to be set up for follow up with an anticoagulation clinic in [facility] at the time of discharge. New recommendations: [...] or concerns, please page the Nephrology A YEAST MAKER/PA pager ([phone]). Paul Travis M.D., Ph.D. - 05/08/2019 7:14 [...] oral 3 times daily with meals 05/06/19 1905 07/19/19 0759 Vitamin K-Containing Medications (168h ago, onward) [...] the hospital. Elena Mitchell, Pharm.D., R.Ph. Contact [phone] with any questions about this note. Mihir Zamarripa M.D., Ph.D. - 05/07/2019 10:33 AM CDT I evaluated Ms. Wray with Deanne Shelton [address]. I confirmed the iglesias elements of the history. I agree with the findings, assessment and plan of care as outlined in the note. Mihir Zamarripa M.D., Ph.D. TOT Paul Travis M.D., Ph.D. - 05/07/2019 8:45 [...] assured her that we would like her sprayer operator know about her current status and set [...] will have her come back to the small up clinic on for follow-up with 1 of the vascular surgery fashion designer She will continue on Duricef 500 mg [...] questions or concerns. Valeriano Travis MD, PhD [phone] documented in this encounter H&P Notes Paul Travis M.D., Ph.D. - 05/06/2019 8:09 AM CDT SUBJECTIVE Shabnam Wray is a 58 y.o. 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 Her renal transplant was done in 2007 with failure in 2017. She has additionallyhad failed AV fistulas x3 [...] in this encounter Consult Notes Deanne Fisher APRN C.N.P., M.S.N. - 05/07/2019 10:08 AM CDTAssociated Order(s): IP CONSULT TO NEPHROLOGY SUBJECTIVE Nephrology consult (hospital) Referring Provider: Farzana Almodovar APRN CDaviNDaviPDavi Reason for Consult: dialysis while hospitalized CHIEF [...] dialyzes on Sunday, Sunday and Sunday at [facility]. She normally dialyzes for 3.5 hours [...] setting of failed renal transplant, maintained on [facility] hemodialysis #2 Status post right brachioaxillary [...] to not being on the [facility] formulary. This will be resumed in the [...] follow up with an anticoagulation clinic in [facility] at the time of discharge. Thank you for the opportunity to participate in 's care. For questions or concerns, please page the Nephrology A YEAST MAKER/PA pager ([phone]). documented in this encounter Nursing Notes Dara Davis R.N. - 05/12/2019 12:48 PM CDT Patient remained vitally stable for discharge. Returned from Dialysis and prepared to leave. All scripts sent to [facility] in [place]. Oxy and coumadin printed and given to patient. IVs removed. Patient was taken to [facility] by transport. Family to take home. Huber [...] * Guillermo Yu M.B.B.S. - Primary * eRx Sheets M.D. - Dialysis Biomed Technician * Paul Travis M.D., Ph.D. - Other Trauma Nurse Anesthesia Type General Pre-operative Diagnosis Chronic Failure [...] Implant Name Type Inv. Item Serial No. Turbine Measurements Engineer Lot No. LRB No. Used CLP LGC LGT TI SM - [id number] Hardware e.g. pins/screws/rods CLP LGC LGT TI SM Ethicon Right 1 CLP HRZN TI 6 CLP MD PRITI - [id number] Hardware e.g. pins/screws/rods CLP HRZN TI 6 CLP MD PRITI Teleflex [facility] Right 2 GRFT PRP STR 6X40 - [id number] - [id number] Vascular Graft GRFT PRP STR 6X40 [id number] GoreRight 1 GRFT VSC BOV 0.8X8 - [id number] Mesh or Patch GRFT VSC BOV 0.8X8 Synovis [id number] 1 Marietta Aden Brief Op Note - Paul Travis M.D., Ph.D. - 05/06/2019 11:42 AM CDT BRIEF OP NOTE Procedure(s) (LRB): CREATION ARTERIOVENOUS FISTULA UPPER EXTREMITY, First stage brachialbasilic arteriovenous fistula, Proceed as indicated. (Right) IR IMAGING Surgeon(s) and Role: * Guillermo Yu M.B.B.S. - Primary * Rex Sheets M.D. - Dialysis Biomed Technician * Paul Travis M.D., Ph.D. - Other Trauma Nurse Anesthesia Type General Pre-operative Diagnosis * Chronic [...] Implant Name Type Inv. Item Serial No. Turbine Measurements Engineer Lot No. LRB No. Used CLP LGC LGT TI SM - [id number] Hardware e.g. pins/screws/rods CLP LGC LGT TI SM Ethicon Right 1 CLP HRZN TI 6 CLP PRITI - [id number] Hardware e.g. pins/screws/rods CLP HRZN TI 6 CLP PRITI [employer] Right 2 GRFT PRP STR 6X40 - [id number] - [id number] Vascular Graft GRFT PRP STR 6X40 [id number] GoreRight 1 GRFT VSC BOV 0.8X8 - [id number] Mesh or Patch GRFT VSC BOV 0.8X8 Synovis [id number] 1 Paul Travis M.D., Ph.D. documented in [...] Nicholas APRN, C.N.P., D.N.P., M.S.N. [address] [place] [phone] (Nicolas wen) 07/31/2022 Lab Laboratory Medicine Tony Rubalcava M. B., Ch.B., M.D. [address] [place] [phone] (Nicolas wen) 07/31/2022 Lab Laboratory Medicine Tony Rubalcava M. B., Ch.B., M.D. [address] [place] [phone] (Nicolas wen) 07/31/2022 Office Visit Transplant Tony Rubalcava M.B., Mukund Otoole [address] [place], [place] [phone] (Wo rk) 07/31/2022 Appointment Radiology Tony Rubalcava M.B., Mukund Otoole [address] [place] [phone] (Wo rk) 08/01/2022 Office Visit Transplant Tony Rubalcava M.B., Mukund Otoole [address] [place] [phone] (Wo behzad) 08/01/2022 Clinical Support Transplant Tony Rubalcava M.B., Mukund Otoole [address] [place] [phone] (Nicolas ewn) Pending Results Name Type Priority Associated Diagnoses [...] Disease OTHER Dialysis Dependent (HCC) Case Notes [employer] [employer] [id number] documented in this encounter Results (ABNORMAL) [...] >=60 05/12/2019 Black/ mL/min/BSA 8:47 AM CDT Bangladeshi Comment: ----ADDITIONAL INFORMATION---- Estimated GFR calculated using [...] Address City/State/ZIP Code Phon e Number [facility] - [address] [place], [place] [address] [facility] (ABNORMAL) PT (Prothrombin Time) with INR (05/12/2019 5:01 AM CDT) [facility] gist Method Time Signature Prothrombin 23.0 (H) 9.4 [...] an attachment that is no t available. Farzaan Almodovar APRN, R.N. LAB BLOOD ADD-ON Performing Organization Address [facility] Phon e Number [facility] - [address] [place] [address] [facility] (ABNORMAL) CBC without Differential (05/12/2019 5:01 AM [...] R.N. LAB BLOOD ADD-ON Performing Organization Address City/[facility] Code Phon e Number [facility] - [address] [place] [address] [facility] Heparin Anti-Xa Assay (05/12/2019 5:01 AM CDT) [...] 05/12/20 19 5:13 Venous) CDT AM CDT Viktoria Montana APRN C.N.P., M.S.N. LAB BLOOD NON ADD-O N Performing Organization Address City/State/ZIP Code Phon e Number [facility] - [address] [place] [address] [facility] US Hemodialysis Fistula-Graft Right (05/11/2019 3:19 PM [...] M.S.N. LAB BLOOD ADD-ON Performing Organization Address [facility] Phon e Number [facility] - [address] [place] [address] [facility] Magnesium (05/11/2019 3:41 AM CDT) P athologist Signature Magnesium, S 2.1 1.7 - 2.3 05/11/2019 mg/dL 4:37 AM CDT Specimen Anatomical Collection Method Collection Time Receive d Time (Source) Location / / Volume Laterality Blood (Blood, 05/11/2019 3:41 AM 05/11/20 19 4:05 Venous) CDT AM CDT Viktoria Montana APRN, C.N.P., M.S.N. LAB BLOOD ADD-ON Performing Organization Address City/[facility] Phon e Number [facility] - [address] [place] [address] [facility] (ABNORMAL) Basic Metabolic Panel (05/11/2019 3:41 AM [...] >=60 05/11/2019 Black/ mL/min/BSA 4:37 AM CDT Bangladeshi Comment: ----ADDITIONAL INFORMATION---- Estimated GFR calculated using [...] M.S.N. LAB BLOOD ADD-ON Performing Organization Address City/[facility] Phon e Number [facility] - [address] (ABNORMAL) PT (Prothrombin Time) with INR (05/11/2019 3:41 AM CDT) [facility] Signature Prothrombin 18.3 (H) 9.4 [...] 4:05 Venous) CDT AM CDT Farzana Almodovar APRN RRalf LAB BLOOD ADD-ON Performing Organization Address City/[facility] Phon e Number [facility] - [address] (ABNORMAL) CBC without Differential (05/11/2019 3:41 AM CDT) [facility] Method Time Signature Hemoglobin 8.4 (L) 11.6 [...] Address City/State/ZIP Code Phon e Number [facility] - [address] Heparin Anti-Xa Assay (05/11/2019 3:41 AM [...] Address City/State/ZIP Code Phon e Number [facility] - [address] [place], [place] [address] [facility] DX Abdomen 1 View (05/10/2019 6:08 PM [...] obstruction. Distention of the stomach. Milli Khan APRNNDaviPDavi, M.S.N. IMG DIAGNOSTIC IMAG ING PROCEDURES (ABNORMAL) PT (Prothrombin Time) with INR (05/10/2019 6:18 AM CDT) [facility] Method Time Signature Prothrombin 15.2 (H) 9.4 [...] R.N. LAB BLOOD ADD-ON Performing Organization Address [facility] Phon e Number [facility] - [address] (ABNORMAL) CBC without Differential (05/10/2019 6:18 AM [...] R.N. LAB BLOOD ADD-ON Performing Organization Address [facility] Code Phon e Number [facility] - [address] [place] [address] [facility] (ABNORMAL) BMP (Basic Metabolic Panel) (05/10/2019 6:18 [...] >=60 05/10/2019 Black/ mL/min/BSA 7:34 AM CDT Bangladeshi Comment: ----ADDITIONAL INFORMATION---- Estimated GFR calculated using [...] Blood (Blood, 05/10/2019 6:18 AM 05/10/20 19 6:40 Venous) CDT AM CDT Lola George APRN C.N.P., M.S. LAB B LOOD ADD-ON Performing Organization Address City/State/ZIP Code Phon e Number [facility] - [address] [place] [address] [facility] Heparin Anti-Xa Assay (05/10/2019 6:18 AM CDT) [...] 05/10/20 19 6:39 Venous) CDT AM CDT Lola George APRN, C.N.P., M.S. LAB B LOOD NON ADD-ON Performing Organization Address City/[facility] Phon e Number [facility] [address] [place] [address] [facility] (ABNORMAL) Ferritin (05/09/2019 11:01 AM CDT) athologist Signature Ferritin, S 659 (H) 11 - 307 05/09/2019 mcg/L 12:28 PM CDT Specimen Anatomical Collection Method Collection Time Receive d Time (Source) Location / / Volume Laterality Blood (Blood, 05/09/2019 11:01 05/09/2019 Venous) AM CDT 11:20 AM CDT Deanne Fisher APRN, C.N.P., M.S.N. LAB BLOOD ADD-O N Performing Organization Address [facility] Phon e Number [place] [address] [facility] (ABNORMAL) Iron and Total Iron-Binding Capacity (05/09/2019 [...] LAB BLOOD ADD-O N Performing Organization Address [facility] Phon e Number [facility] - [address] [place] [address] [facility] (ABNORMAL) PT (Prothrombin Time) with INR (05/09/2019 7:32 AM CDT) [facility] Method Time Signature Prothrombin 13.8 (H) 9.4 [...] Laterality Blood (Blood, 05/09/2019 7:32 AM 05/09/20 8:00 Venous) CDT AM CDT Farzana Almodovar APRN, R.N. LAB BLOOD ADD-ON Performing Organization Address City/State/ZIP Code Phon e Number [facility] - [address] [place] [address] [facility] (ABNORMAL) CBC without Differential (05/09/2019 7:32 AM CDT) [facility] Method Time Signature Hemoglobin 8.4 (L) 11.6 [...] R.N. LAB BLOOD ADD-ON Performing Organization Address [facility] Phon e Number [facility] - [address] [place] [address] [facility] Heparin Anti-Xa Assay (05/09/2019 7:32 AM CDT) athologist Signature Heparin 0.36 IU/mL 05/09/2019 Anti-Xa, [...] LAB BLOOD NON ADD-ON Performing Organization Address [facility] Phon e Number [facility] - [address] [place] [address] [facility] Heparin Anti-Xa Assay (05/08/2019 1:32 AM CDT) athologist Signature Heparin 0.46 IU/mL 05/08/2019 Anti-Xa, [...] BLOOD NON A DD-ON Performing Organization Address [facility] Phon e Number [facility] - [address] [place] [address] [facility] (ABNORMAL) PT (Prothrombin Time) with INR (05/08/2019 1:32 AM CDT) [facility] Method Time Signature Prothrombin 12.9 (H) 9.4 [...] Venous) CDT AM CDT Farzana Almodovar APRN, Camron LAB BLOOD ADD-ON Performing Organization Address [facility] Phon e Number [facility] - [address] [place] [address] [facility] (ABNORMAL) CBC without Differential (05/08/2019 1:32 AM CDT) [facility] [employer] Method Time Signature Hemoglobin 9.3 (L) 11.6 [...] R.N. LAB BLOOD ADD-ON Performing Organization Address [facility] Phon e Number [facility] - [address] [place] [address] [facility] Magnesium (05/08/2019 1:32 AM CDT) P athologist Signature Magnesium, S 1.8 1.7 - 2.3 05/08/2019 mg/dL 2:43 AM CDT Specimen Anatomical Collection Method Collection Time Receive d Time (Source) Location / / Volume Laterality Blood (Blood, 05/08/2019 1:32 AM 05/08/20 1:57 Venous) CDT AM CDT Farzana Almodovar APRN, R.N. LAB BLOOD ADD-ON Performing Organization Address [facility] Phon e Number [facility] - [address] (ABNORMAL) Phosphorus Inorganic (05/08/2019 1:32 AM CDT) P athologist Signature Phosphorus 5.2 (H) 2.5 - 4.5 05/08/2019 (Inorganic), S mg/dL 2:43 AM CDT Specimen Anatomical Collection Method Collection Time Receive d Time (Source) Location / / Volume Laterality Blood (Blood, 05/08/2019 1:32 AM 05/08/20 1:57 Venous) CDT AM CDT Farzana Almodovar APRN, R.N. LAB BLOOD ADD-ON Performing Organization Address City/[facility] Phon e Number [facility] - [address] [place] [address] [facility] (ABNORMAL) Basic Metabolic Panel (05/08/2019 1:32 AM [...] >=60 05/08/2019 Black/ mL/min/BSA 2:43 AM CDT Bangladeshi Comment: ----ADDITIONAL INFORMATION---- Estimated GFR calculated using [...] Laterality Blood (Blood, 05/08/2019 1:32 AM 05/08/20 19 1:57 Venous) CDT AM CDT Farzana Almodovar APRN, R.N. LAB BLOOD ADD-ON Performing Organization Address City/State/ZIP Code Phon e Number [facility] - [address] [place] [address] [facility] Heparin Anti-Xa Assay (05/07/2019 4:41 PM CDT) [...] Address City/State/ZIP Code Phon e Number [facility] - [address] [place] Hemodialysis Fistula-Graft Right (05/07/2019 3:25 [...] Time) with INR (05/07/2019 10:23 AM CDT) [facility] Method Time Signature Prothrombin 12.9 (H) 9.4 [...] Address City/State/ZIP Code Phon e Number [facility] - [address] [place], [place] [address] [facility] APTT (Activated Partial Thromboplastin Time) (05/07/2019 10:23 [...] Address City/State/ZIP Code Phon e Number [facility] - [address] [place], [place] [address] [facility] (ABNORMAL) BMP (Basic Metabolic Panel) (05/07/2019 7:43 [...] >=60 05/07/2019 Black/ mL/min/BSA 11:32 AM CDT Bangladeshi Comment: ----ADDITIONAL INFORMATION---- Estimated GFR calculated using [...] Ph.D. LAB BLOOD ADD-ON Performing Organization Address [facility] Phon e Number [facility] - [address] (ABNORMAL) CBC without Differential (05/07/2019 7:43 AM CDT) [facility] Method Time Signature Hemoglobin 9.8 (L) 11.6 [...] Ph.D. LAB BLOOD ADD-ON Performing Organization Address [facility] Phon e Number [facility] - [address] [place] [address] [facility] [facility] (ABNORMAL) CBC without Differential (05/06/2019 8:11 PM CDT) [facility] Method Time Signature Hemoglobin 10.5 (L) 11.6 [...] Address City/State/ZIP Code Phon e Number [facility] - [address] [place] [id number] [facility] (ABNORMAL) BMP (Basic Metabolic Panel) (05/06/2019 8:11 [...] >=60 05/06/2019 Black/ mL/min/BSA 9:15 PM CDT Bangl[place] Comment: ----ADDITIONAL INFORMATION---- Estimated GFR calculated using [...] 05/06/20 19 8:41 Venous) CDT PM CDT Paul Travis M.D., Ph.D. LAB BLOOD ADD-ON Performing Organization Address City/[facility] Code Phon e Number [facility] - [address] Type and Screen (with reflex Antibody ID) (05/06/2019 6:57 PM CDT) Component Value Ref Range Test Analysis Performed Pathologis t Method Time At Signature ABORh O Pos Not 05/06/2019 applicable 7:45 PM CDT Antibody Negative Negative 05/06/2019 Screen 8:01 PM CDT Type & Screen [id number] 05/06/2019 Expiration 7:45 PM CDT Testing Mary DEFAULT 05/06/2019 Location 7:10 PM CDT Specimen Anatomical Collection Method Collection Time Receive d Time (Source) Location / / Volume Laterality Blood (Blood, 05/06/2019 6:57 PM 05/06/20 19 7:10 Venous) CDT PM CDT Farzana Almodovar APRN, R.N. LAB BLOOD BANK TEST ORDERABL ES Performing Organization Address [facility] Phon e Number [facility] - [address] documented in this encounter Visit Diagnoses Diagnosis Chronic Failure Renal End Stage Renal Di sease Dialysis Dependent (HCC) - Primary Failure Renal End Stage (HCC) Chronic Failure Renal End Stage Renal Di sease Dialysis Dependent (HCC) documented in this encounter Admitting Diagnoses [...] Given 05/10/2019 8:52 AM CDT 500 mg cellulose, oxidized 2 x 4 pad Given 05/06/2019 4:49 PM CDT 1 e ach Right Arm (SURGICEL) As needed, Starting on Sun05/06/19 at 1649, Intra-Op gabapentin capsule 200 mg (NEURONTIN) Given 05/12/2019 12:13 PM CDT 200 mg 200 mg, oral, 2 times daily, First dose on Sun05/06/19 at 2100 Given 05/11/2019 8:22 PM CDT 200 mg Given 05/11/2019 8:31 AM CDT 200 mg gelatin sponge,absorb-porcine 50 sponge Given 05/06/2019 2:18 PM CDT 2 each (GELFOAM) As needed, Starting on Sun05/06/19 at 1418, Intra-Op gentamicin-polymixin B 20 mg-500,000 Units Given 05/06 4:58 PM CDT 1,000 mL irrigation (DABS_MODIFIED) As needed, Starting on Sun05/06/19 at 1658, Intra-Op heparin (porcine) 5,000 Units in NaCl 0.9% Given 05/06/2019 4:58 PM CDT 350 mL 500 mL flush solution As needed, Starting on Sun05/06/19 at 1658, Intra-Op iodixanol 320 mg iodine/mL injection 1-200 mL Given 05/06/20 4:57 PM CDT 6 mL (VISIPAQUE) 1-200 mL, intravenous, Once in surgery, contrast, OR use only, Starting on Sun05/06/19 at 1656, For 1 dose, Intra-Op lidocaine-bupivacaine 1%-0.25% infiltration Given 05/06/2019 12:05 PM CDT 21 mL injection 30 mL 30 mL, infiltration, Once in surgery, OR use only, Starting on Sun05/06/19 at 0913, For 1 dose, Intra-Op, Not for IV use multivitamin renal failure 1 tablet Given 05/11/2019 [...] Given 05/11/2019 8:31 AM CDT 250 mg nebivolol tablet 10 mg (BYSTOLIC) Given 05/12/2019 12:13 PM CDT 10 mg 10 mg, oral, Daily, First dose on Sun05/07/19 at 0900 Given 05/11/2019 8:31 AM CDT 10 mg Given 05/10/2019 8:54 AM CDT [address] capsule 40 mg (PriLOSEC) Given 05/12/2019 5:02 AM CDT 40 mg 40 mg, oral, 2 times daily before breakfast and dinner, First dose on Sun05/11/19 at [...] or score 4-6 of 10, Starting on Sun05/06/19 at 1905, Administer if pain is unrelieved by acetaminophen. May repeat dose once after 1 hour for persistent pain not to exceed 10 mg in 4 hours. Begin oral narcotics ONLY when tolerating oral diet. Given 05/11/2019 6:46 AM CDT 5 mg Given 05/10/2019 5:39 PM CDT 5 mg polyethylene glycol powder packet 17 g [...] Given 05/10/2019 8:54 AM CDT 800 mg sodium chloride 0.9 % injection 10-60 mL [...] Given 05/11/2019 8:31 AM CDT 2 mg thrombin (recombinant) topical solution Given 05/06/20 2:19 PM CDT 10,000 Units (RECOTHROM) As needed, Starting on Sun05/06/19 at 1419, Intra-Op warfarin management (COUMADIN) oral, Daily, First dose on Sun05/07/19 at 1000, Pharma cist to Dose: Yes, Target INR: 2 - 3, Comorbidities that constitute Warfarin Sen sitivity: No known comorbidities that change warfarin sensitivity, Indica tion: Other, Explanatory Comment: AV graft, Therapy type: Resume Warfarin thera py documented in this encounter Active and Recently Administered Medications Times are shown in CDT. Scheduled Medication Order 05/10/2019 05/11/2019 05/12/2019 acetaminophen tablet 1,000 mg (TYLENOL) 9629 (Given - Provider: Rocío Jameson RRalf)5517 (Not Given - Provider: Rocío Jameson R.N. - Reason: Patient/family refused)1256 (Given - Provider: Rocío Jameson R.N.)2035 (Given - Provider: Catrachita Johnson R.N.) 0747 (Given - Provider: Rocío Jameson R.N.)1208 (Given - Provider: Rocío Jameson R.N.)1659 (Given - Provider: Rocío Jameson R.N.)2022 (Given - Provider: Raiza Johnson R.N.) 0954 (Not Given - Provider: Nicole Parson R.N., JEFN - Reason: Patient/family refused - Comment: pt [...] 1212 (G iven - Provider: Dara Davis R.N.) 500 mg, oral, Daily, First dose on Sun at 0900, cefadroxil 500 mg daily was interchanged for cephalexin 250 mg oral daily. Give after dialysis on dialysis days., Indications: Skin and soft tissue infection gabapentin capsule 200 mg (NEURONTIN) 0854 (Given - Pr ovider: Rocío Jameson R.N.)2035 (Given - Provider: Raiza Johnson R.N.) 0831 (Given - Provider: Rocío Jameson R.N.)2021 (Given - Provider: Raiza Johnson R.N.) 1213 (Given - Provider: Ann HerrmannNDavi) 200 mg, oral, 2 times daily, First dose on Sun05/06/19 at 2100 heparin (porcine) 1,000 unit/mL injection 3,000 Units (COMPLETED ) 112 (Given - Provider: Seema Mcpherson RDaviNDavi) 3,000 Units (3 mL), intra-catheter, Once , On Sun05/12/19 at 0745, For 1 dose, Dialysis, Dwell in dialysis catheter after dialysis. Dwell only the volume of the dialysis catheter. heparin (porcine) 1,000 unit/mL injection 3,000 Units (COMPLETED ) 112 (Given - Provider: Seema Mcpherson RDaviNDavi) 3,000 Units (3 mL), intra-catheter, Once , On Sun05/12/19 at 0745, For 1 dose, Dialysis, Dwell in dialysis catheter after dialysis. Dwell only the volume of the dialysis catheter. heparin (porcine) 1,000 unit/mL injection 3,000 Units (COMPLETED) 1549 (Given - Provider: Lucio Ma RDaviNDavi) 3,000 Units, intra-catheter, Once, On Sa t 05/10/19 at 1545, For 1 dose, Dialysis, Dwell length of catheter to lock TTDC heparin (porcine) 1,000 unit/mL injection 3,000 Units (COMPLETED) 1549 (Given - Provider: Lucio Ma RDaviNDavi) 3,000 Units, intra-catheter, Once, On Sa t 05/10/19 at 1545, For 1 dose, Dialysis, Dwell length of catheter to lock TTDC mineral oil-glycerin enema 1 enema 1400 (Due) 1 enema, rectal, Once, 05/10/19 at 1400, For 1 dose multivitamin renal failure 1 tablet (DIALYVITE) 1734 ( Given - Provider: Rocío Jameson R.N.) 1659 (Given - Provider: Rocío Jameson R.N.) 1 tablet, oral, Daily with dinner, First [...] Provider: Rocío Jameson R.N.)1705 (Given - Provider: Rocío Jameson R.N.) 0502 (Given - Provider: Raiza Johnson R.N.)0700 (Canceled Entry - Provider: Raiza Johnson R.N.) 40 mg, oral, 2 times daily before breakf ast and dinner, First dose on 05/11/19 at [...] Rocío Jameson R.N.) 0754 (Given - Provider: Rocío Jameson R.N.) 0900 (D ue) 17 g, oral, Daily, [...] 1212 (G iven - Provider: Dara Davis R.NDavi) 5 mg, oral, Daily, First dose on Sun05/07/19 at 0900 sennosides-docusate sodium 8.6-50 mg per tablet 2 tabl et (SENOKOT-S) 0859 (Given - Provider: Rocío Jameson R.N.)2035 (Given - Provider: Raiza Johnson R.N.) 0831 (Given - Provider: Ann QuinonezNDavi)2022 (Given - Provider: Ann GandaraNDavi) 0900 (Due) 2 tablet, oral, 2 times daily, First dose on Sun05/09/19 at 0945 sevelamer tablet 800 mg (RENAGEL) 0854 (Given - Provid er: Rocío Jameson R.N.) 0831 (Given - Provider: Rocío Jameson R.N.) 0920 (G iven - Provider: Nicole Parson R.N., CPN) 800 mg, oral, Daily, First dose on Sun at 0900, With breakfast Swallow whole. Do NOT crush, chew, or split tablet. tacrolimus capsule 2 mg (PROGRAF) 0859 (Given - Provid er: Rocío Jameson R.N.)2035 (Given - Provider: Raiza Johnson R.N.) 0831 (Given - Provider: Rocío Jameson R.N.)2021 (Given - Provider: Raiza Johnson R.N.) 1212 (Given - Provider: Dara Davis R.N.) 2 mg, oral, 2 times daily, [...] dose warfarin tablet 4 mg (COUMADIN) (COMPLETED) 1700 (Given - Provider: Rocío Jameson R.N.) 4 [...] Jameson R.N.)1948 (Handoff - Provider: Raiza garrison R.N.) 0450 (New Bag - Provider: Raiza burk R.N.)0623 (Handoff - Provider: Raiza Johnson R.N.)0740 (Stopped - Provider: Dara Davis R.N. - Comment: per verbal order from [employer] 0-40 Units/kg/hr ? 100 kg Dosing [...] (ZOFRAN) 1617 (Given - Provider: Rocío Jameson RRalf) 4 mg, intravenous, Every 6 hours PRN, na usea, vomiting, Starting on Sun05/10/19 at 1034 oxyCODONE IR tablet 10 mg (ROXICODONE) 2 234 (Given - Provider: Raiza Johnson R.N.) 1228 (Given - Provider: Maddie Herrmann) 10 mg, oral, Every 4 hours PRN, severe p ain or score 7-10 of 10, Starting on Sun05/06/19 at 1905, Administer if pain is unrelieved by acetaminophen. Do not give more than 10 mg of oxycodone in 4 hours. Begin oral narcotics ONLY when tolerating oral diet. oxyCODONE IR tablet 5 mg (ROXICODONE) 1739 (Given - Pr ovider: Rocío Jameson RDaviN.) 0646 (Given - Provider: Raiza macias RDaviNDavi)1208 (Given - Provider: Rocío Jameson R.NDavi) 5 mg, oral, Every 4 hours PRN, mild pain or score 1-3 of 10, moderate pain or score 4-6 of 10, Starting on Sun05/06/19 at 1905, Administer if pain is unrelieved by acetaminophen. May repeat dose once af ter 1 hour for persistent pain not to ex ceed 10 mg in 4 hours. Begin oral narcotics ONLY when tolerating oral diet. polyethylene glycol powder packet 17 g (MIRALAX) 1617 (Given - Provider: Rocío Jameson RDaviN.) 17 g, oral, Daily PRN, constipation, Sta rting on 05/10/19 at 1345, Dissolve in 240 mLs (8 ounces) of water prior to giving. Avoid mixing with starch-based thickened liquids. sodium chloride 0.9 % flush 1-250 mL (CANCELED) 1310 ( Given - Provider: Lucio Ma RDaviN.) 1-250 mL, intravenous, As needed, line c [...] 0857 (Given - Provider: Nicole Parson RRalf, CPMilady) 250 mL, intravenous, As needed, line car e, For priming and rinse back post dialysis, Starting on Sun05/12/19 at 0739, Dialysis, Dialysis order only. sodium chloride 0.9 % injection 10-60 mL 1311 (Given - Provider: Lucio Ma R.N.)1527 (Given - Provider: Lucio Ma R.N.) 0858 (Given - Provider: Nicole Parson R.N., CPN) 10-60 mL, intravenous, As needed, line [...]
--- OUTSIDE RECORDS SUMMARY | 2022-05-25 13:21 | XMS_ITS | Encounter Summary ---
:1960 Author Organization [facility] Address [address] [place] [address] Care Team Providers Name Role Phone Unavailable Primary Care Provider Unavailable Encounter Details Date Type Department Care Team Description 05/05/2019 Hospital Encounter Department of Josr Martínez Jr., D.ODavi [address] [place] [phone] Complication Dialysis Radiology in Julius Kent M.D. [address] [place] [phone] Device Subsequent [place], [place] [address] [place] [address] Social History Tobacco Use Types [...] often do you attend roman catholic or uatsdin 1 to 4 times per [...] Sign Reading Time Taken Comments Blood Pressure 216/108 05/05/2019 10:15 AM CDT Pulse 59 05/05/2019 10:14 AM CDT Temperature - - Respiratory Rate 15 05/05/2019 10:14 AM CDT Oxygen Saturation 100% 05/05/2019 10:14 AM CDT Inhaled Oxygen Concentration - - Weight 101 kg (221 lb 12.5 oz) 05/05/2019 8:19 AM CDT Height - - Body Mass Index 37.73 02/06/2019 9:59 AM CDT documented in this encounter Medications at Time of Discharge Medication Sig Dispensed Refills Start Date End Date hydrocortisone Apply 1 application 0 09/18/2017 (for_HYTONE) 2.5 % topically daily as cream needed (Eczema). ciprofloxacin (CIPRO) Take 1 tablet by 6 tablet 0 09/03/19 19 05/07/2019 250 mg tablet mouth evening prior to stent exchange, 1 tablet evening of, then twice a day until gone. warfarin (COUMADIN) 2 Take 1.5 tablets (3 135 tablet 3 04/2505/12/2019 mg tablet mg total) by mouth daily. Take as directed per After Visit Summary. cefadroxil (DURICEF) Take 1 capsule (500 7 [...] 1 tablet by 0 06/13/2017 05/31/20 19 33-uiscl-V-biot-zinc mouth daily. (DIALYVITE) [id number] iz-fl-iyk-mg tablet calcium carbonate Chew 2 tablets 2 0 0 04/07/2022 (TUMS) 500 mg (200 mg (two) times a day calcium) chewable with meals. Lunch tablet and dinner. gabapentin (NEURONTIN) Take 2 capsules (200 120 capsule 11 12/08/2019 100 mg capsule mg total) by mouth 2 (two) times a day. ibuprofen Take 600 mg by mouth 0 04/21 (ADVIL,MOTRIN) 600 mg 3 (three) times a tablet day as needed for pain. lidocaine-prilocaine Apply 1 [...] times a day. warfarin (COUMADIN) 2 Take 2 tablets (4 mg 180 tablet 3 04/2105/16/2019 mg tablet total) by mouth daily. Take 4 mg on 05/12 and 05/13. Have your INR checked on 05/14. Further dosing per local provider. INR goal 2.0-3.0.Take as directed per After Visit Summary. documented as of this encounter Procedure Notes Haim Perez M.D. - 05/05/2019 10:38 AM CDT PATIENT DISPOSITION Return to Outpatient Unit for recovery. Discharge patient when discharge criteria met. POST-PROCEDURE DIAGNOSIS ESRD. Malfunctioning left IJ tunneled hemodialysis catheter. PROCEDURE PERFORMED AND DESCRIPTION Placement of right external jugular vein tunneled Palindrome hemodialysis catheter, ready for use. Removal of left internal jugular vein hemodialysis catheter. PROCEDURE DETAILS See Radiology Report SPECIMENS REMOVED None FINDINGS See. Radiology Report PRIMARY PROCEDURALIST Dr. Kent ASSISTANTS Dr. Perez COMPLICATIONS None. DRAINS 14.5 Fr Palindrome hemodialysis catheter, right EJ IMPLANTS None. ANESTHESIA Moderate Sedation. FLUIDS 0mL ESTIMATED BLOOD LOSS <5ml CURRENT MEDICATIONS No Medication Changes FOLLOW-UP LETTER None. MAY RETURN TO WORK Not applicable PATIENT INSTRUCTIONS No return appointment documented in this encounter Plan of Treatment Upcoming Encounters Date Type Specialty Care Team Description 06/01/2022 Telemedicine Pharmacy An Nicholas APRN, C.NDaviPDavi, D.N.P., M.S.N. [address] [place] [address] [phone] (Wo rk) 07/31/2022 Lab Laboratory Medicine Tony Rubalcava M. B., Sydnie, Mukund [address] [place] [address] [phone] (Wo rk) 07/31/2022 Lab Laboratory Medicine Tony Rubalcava M. B., Sydnie, Mukund [address] [place] [address] [phone] (Wo rk) 07/31/2022 Office Visit Transplant Tony Rubalcava M.B., Sydnie, Mukund [address] [place] [address] [phone] (Wo rk) 07/31/2022 Appointment Radiology Tony Rubalcava M.B., Sydnie, Mukund [address] [place] [address] [phone] (Wo rk) 08/01/2022 Office Visit Transplant Tony Rubalcava M.B., Sydnie, Mukund [address] [place] [address] [phone] (Wo rk) 08/01/2022 Clinical Support Transplant Tony Rubalcava M.B., Sydnie, Mukund [address] [place] [address] [phone] (Wo rk) documented as of this encounter Procedures Procedure Name Priority Date/Time Associated Comments Diagnosis IR DIALYSIS / RAD - Routine 05/05/2019 10:22 Complication Results f or this HIGH FLOW (most inpatients AM CDT Dialysis Device procedur e are in CATHETER EXCHANGE and all Subsequent the result s outpatients) section. documented in this encounter Results IR Dialysis / High Flow Catheter Exchange (05/05/2019 10:22 AM CDT) Anatomical Region Laterality Modality Body, Vascular Interventional RST LOS, Vascular N/A X-Ray Angiography Interventional ARZ LOS, Vascular Interventional FLA LOS Specimen (Source) Anatomical Collection Method Collection Time Re ceived Time Location / / Volume Laterality 05/05/2019 11:02 AM CDT Impressions 05/05/2019 11:23 AM CDT 1. Placement of a right EJV palindrome tunneled dialysis catheter. 2. Removal of the left IJV tunneled dial ysis catheter. EP Narrative 05/05/2019 11:23 AM CDT EXAM: IR DIALYSIS / HIGH FLOW CATHETER EXCHANGE CLINICAL HISTORY: 58-year-old female wit h end-stage renal disease and malfunctioning left IJ tunneled dialysis catheter. 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 The right external jugular vein is widely patent. Therefore , the right neck and chest were prepped and draped in sterile fashion. Using ult rasound guidance to access vessel, patency was shown and after anesthetizin g the skin with lidocaine the right external jugular vein was punctured succ essfully. A permanent image was created and stored. A guidewire was advanced sharon trally and used for measurement purposes. After anesthetizing the skin w ith lidocaine, a small incision was made over the right anterior chest wall. A 14 .5 Sierra Leonean x 23 cm Palindrome catheter was tunneled from the chest incision to the venotomy. The venotomy was dilated and a peel away sheath was placed. Joanie ter advanced through the sheath. Final radiograph demonstrates the catheter tip in the upper right atrium. Both lumens were flushed and locked with 4% sodium c itrate. A 4-0 Vicryl pursestring suture was placed around the skin exit site. Ca theter secured to the skin with 2-0 Prolene stitch. Right neck puncture clos ed with 4-0 Vicryl stitch. Next, the left IJV dialysis catheter was prepped and draped sterilely. The catheter was removed with gentle tractio n. Hemostasis with manual compression. Sterile dressing applied. No immediate c omplication. For placement of this central venous acc ess, we followed catheter checklist and a standardized protocol. The position of the catheter tip was confirmed under fluoroscopic guidance and a final image of the catheter [...] procedure. The total intra-procedural sedation time was: 28 m inutes. Procedure Note Julius Kent M.D. - 05/05/2019For matting of this note might be different from the original. EXAM: IR DIALYSIS / HIGH FLOW CATHETER E XCHANGE CLINICAL HISTORY: 58-year-old female wit h end-stage renal disease and malfunctioning left IJ tunneled dialysis catheter. 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 The right external jugular vein is widely patent. Therefore , the right neck and chest were prepped and draped in sterile fashion. Using ult rasound guidance to access vessel, patency was shown and after anesthetizin g the skin with lidocaine the right external jugular vein was punctured succ essfully. A permanent image was created and stored. A guidewire was advanced sharon trally and used for measurement purposes. After anesthetizing the skin w ith lidocaine, a small incision was made over the right anterior chest wall. A 14 .5 [place] x 23 cm Palindrome catheter was tunneled from the chest incision to the venotomy. The venotomy was dilated and a peel away sheath was placed. Joanie ter advanced through the sheath. Final radiograph demonstrates the catheter tip in the upper right atrium. Both lumens were flushed and locked with 4% sodium c itrate. A 4-0 Vicryl pursestring suture was placed around the skin exit site. Ca theter secured to the skin with 2-0 Prolene stitch. Right neck puncture clos ed with 4-0 Vicryl stitch. Next, the left IJV dialysis catheter was prepped and draped sterilely. The catheter was removed with gentle tractio n. Hemostasis with manual compression. Sterile dressing applied. No immediate c omplication. For placement of this central venous acc ess, we followed catheter checklist and a standardized protocol. The position of the catheter tip was confirmed under fluoroscopic guidance and a final image of the catheter [...] procedure. The total intra-procedural sedation time was: 28 m inutes. IMPRESSION: 1. Placement of a right EJV palindrome t unneled dialysis catheter. 2. Removal of the left IJV tunneled dial ysis catheter. EP Brody Rasheed Jr. IR PROCEDURES documented in this encounter Visit Diagnoses Diagnosis Complication Dialysis Device Subsequent documented in this encounter Administered Medications Inactive Administered Medications - up to 3 most recent administrations Medication Order MAR Action Action Date Dose Rate Site ceFAZolin injection 2,000 mg Given 05/05/2019 9:05 AM CDT 2,000 mg (ANCEF) 2,000 mg (rounded from 2,467.5 mg = 25 mg/kg ? 98.7 kg), intravenous, Once, On Sun05/05/19 at 0830, For 1 dose, Intraprocedure (RAD), Preoperatively within one hour of incision. Adminster IV push over 3 minutes. Add 5 mL NS to 1 gram vial for a final concentration of 200 mg/mL., Indications: Prophylaxis, surgical fentaNYL injection 25 mcg (SUBLIMAZE) Given 05/05/2019 9:58 AM CDT 25 mcg 25 mcg, intravenous, Every 2 min PRN, sedation, or pain before and during sedation procedure, Starting on Sun05/05/19 at 0824, Intraprocedure (RAD), Administer over 1 minute immediately prior to the procedure. May repeat every 2 minutes to a maximum of 200 mcg, until pain score of 3 or less, or until the patient meets the pain comfort goal. Do not give if respiratory rate is less than 8 breaths/minute Given 05/05/2019 9:56 AM CDT 25 mcg Given 05/05/2019 9:52 AM CDT 25 mcg flumazenil injection 0.2 mg (ROMAZICON) 0.2 mg, intravenous, Once as needed, rev ersal, Starting on Sun05/05/19 at 0824, For 1 dose, Intraprocedure (RAD), Administer once if patient has a RASS score of -4, -5 and has a respiratory rate less than 8 breaths/minute. lidocaine-sodium bicarbonate 1%-8.4% Given 05/05/2019 10:25 AM C DT 12 mL injection infiltration, Code/trauma/sedation medication, Starting on Sun05/05/19 at 1025 midazolam (PF) injection 0.5 mg (VERSED) 0.5 mg, intravenous, Once as needed, sed ation, Starting on Sun05/05/19 at 0824, For 1 dose, Intraprocedure (RAD) midazolam (PF) injection 0.5 mg (VERSED) Given 05/05/2019 9:58 AM CDT 0.5 mg 0.5 mg, intravenous, Every 2 min PRN, sedation, Starting on Sun05/05/19 at 0824, Intraprocedure (RAD), If RASS greater than -3, give additional dose(s) of 0.5 mg IV every 2 minutes for a maximum of 5 mg. Do not give if respiratory rate is less than 8 breaths/minute. Given 05/05/2019 9:56 AM CDT 0.5 mg Given 05/05/2019 9:52 AM CDT 0.5 mg NaCl 0.9% infusion 20 mL/hr, intravenous, Once as needed, t o keep vein open, Starting on Sun05/05/19 at 0824, For 1 dose, Intraprocedure (RAD) naloxone injection 0.2 mg (NARCAN) 0.2 mg, intravenous, Once as needed, respiratory depre ssion, Starting on Sun05/05/19 at 0824, For 1 dose, Intraproced ure (RAD), Administer once if patient has a RASS score of -4, -5 and has a respiratory rate less t simpson 8 breaths/minute. sodium citrate injection Given 05/05/2019 10:10 AM CDT 6 mL Code/trauma/sedation medication, Starting on Sun05/05/19 at 1010 documented in this encounter Active and Recently Administered Medications Times are shown in CDT. Scheduled Medication Order 05/03/2019 05/04/2019 05/05/2019 ceFAZolin injection 2,000 mg (ANCEF) (COMPLETED) 09 (Given - Provider: Zoraida Rosenberg R.N.) 2,000 mg (rounded from 2,467.5 mg = 25 m g/kg ? 98.7 kg), intravenous, Once, On Sun05/05/19 at 0830, For 1 dose, Intraprocedure (RAD), Preoperatively within one hour of incision. Adminster IV push over 3 minutes. Add 5 mL NS to 1 gram vial fo r a final concentration of 200 mg/mL., Indications: Prophylaxis, surgical PRN Medication Order 05/03/2019 05/04/2019 05/05/2019 fentaNYL injection 25 mcg (SUBLIMAZE) 947 (Given - Provider: Zoraida Rosenberg R.N.)0952 (Given - Provider: Zoraida Rosenberg R.N.)0956 (Given - Provider: Zoraida Rosenberg R.N.)0958 (Given - Provider: Zoraida Rosenberg R.N.) 25 mcg, intravenous, Every 2 min PRN, se dation, or pain before and during sedation procedure, Starting on Sun05/05/19 at 0824, Intraprocedure (RAD), Administer over 1 minute immediately prior to the pro cedure. May repeat every 2 minutes to a maximum of 200 mcg, until pain score of 3 or less, or until the patient meets the pain comfort goal. Do not give if respiratory rate is less than 8 breaths/minute flumazenil injection 0.2 mg (ROMAZICON) 0.2 mg, intravenous, Once as needed, rev ersal, Starting on Sun05/05/19 at 0824, For 1 dose, Intraprocedure (RAD), Administer once if patient has a RASS score of -4, -5 and has a respiratory rate less than 8 breaths/minute. lidocaine-sodium bicarbonate 1%-8.4% injection (COMPLETED) 1025 (Given - Provider: Julius Kent M.D.) infiltration, Code/trauma/sedation medication, Starting on M on 05/05/19 at 1025 midazolam (PF) injection 0.5 mg (VERSED) 0.5 mg, intravenous, Once as needed, sed ation, Starting on Sun05/05/19 at 0824, For 1 dose, Intraprocedure (RAD) midazolam (PF) injection 0.5 mg (VERSED) 0948 (Given - Provider: Zoraida Rosenberg R.N.)0952 (Given - Provider: Zoraida Rosenberg R.N.)0956 (Given - Provider: Zoraida Rosenberg R.N.)0958 (Given - Provider: Zoraida Rosenberg R.N.) 0.5 mg, intravenous, Every 2 min PRN, se dation, Starting on Sun05/05/19 at 0824, Intraprocedure (RAD), If RASS greater than -3, give additional dose(s) of 0.5 mg IV every 2 minutes for a maximum of 5 mg . Do not give if respiratory rate is less than 8 breaths/minute. NaCl 0.9% infusion 20 mL/hr, intravenous, Once as needed, t o keep vein open, Starting on Sun05/05/19 at 0824, For 1 dose, Intraprocedure (RAD) naloxone injection 0.2 mg (NARCAN) 0.2 mg, intravenous, Once as needed, res piratory depression, Starting on Sun05/05/19 at 0824, For 1 dose, Intraprocedure (RAD), Administer once if patient has a RASS score of -4, -5 and has a respiratory rate less than 8 breaths/minute. sodium citrate injection (COMPLETED) 1010 (Given - Provider: Zoraida Rosenberg R.N. - Comment: 3ml in each lumen) Code/trauma/sedation medication, Starting on Sun05/05/19 at 1010 documented in this encounter Additional Health Concerns Assessment Noted Time PHQ-9 Depression Total Score: 4 01/30/2019 12:13 PM CD T documented as of this encounter
--- OUTSIDE RECORDS SUMMARY | 2022-05-25 13:21 | XMS_ITS | Encounter Summary ---
:1960 Author Organization [facility] Address [address] [place] [address] Care Team Providers Name Role Phone Unavailable Primary Care Provider Unavailable Encounter Details Date Type Department Care Team Description 05/05/2019 Documentation Division of Nephrology Elo Trevizo, and Erica, [facility] in [address] [place] [address] [place] [phone] [place] [address] [phone] Social History Tobacco Use Types Packs/Day Years [...] How often do you attend islam or taoist 1 to 4 times per [...] of this encounter Nursing Notes Elo Trevizo RRalf - 05/05/2019 2:[address] Bhatia is out until June 17 and we needed a new surgeon to take this case. I just received a call from Dr. Yu's nurse, Norma. Dr. Yu offered up the surgical day of tomorrow. She??dialyzes at [facility]??on a Sunday, Sunday and Sunday schedule. Please refer to Clara Clarke RN's note for further details. ACCESS: Palindrome Catheter Date placed - 05/05/19 Provider - Dr. Kent ?? LOCATION OF ACCESS: Right internal jugular Surgeon: Dr. Yu has offered to take the case for Dr. Bhatia Plan: Right brachial basilic Stage 1 Surgery: Is scheduled for 05/05/19. Surgery is planned to be done under local sedation and MAC. Stage 2: Scheduled with Dr. Bhatia on 06/19/19. Checklist: the Checklist for Surgical Patients ([id number]) was given to the patient with the following instructions: Report to [facility] admissions at the time told to you when you call in the night before. Report fasting after midnight, no am breakfast, but take your am meds with water. Insulin Directions: N/A Anticoagulation medications directions: She has been holding the Coumadin since Sunday. She was instructed to continue to hold this today. She will resume this after her procedure tomorrow. HOWIE: Discussed with Deanne Fisher CNP and she has cleared her for surgery in her note dated 04/01/19. (HOWIE will be good for both dates). ?? INFORMED CONSENT Patient will need to sign a new consent form for the change in surgeon. documented in this encounter Plan of Treatment Upcoming Encounters Date Type Specialty Care Team Description 06/01/2022 Telemedicine Pharmacy An Nicholas APRN C.N.PDavi, D.N.P., M.S.N. [address] [place] [address] [phone] (Nicolas wen) 07/31/2022 Lab Laboratory Medicine Tony Rubalcava M. B., ChBurke, MDebra [address] [place] [address] [phone] (Nicolas wen) 07/31/2022 Lab Laboratory Medicine Tony Rubalcava M. B., ChBurke, MDebra [address] [place] [address] [phone] (Nicolas wen) 07/31/2022 Office Visit Transplant Tony Rubalcava M.B., ChDaviBDavi, M.D. [address] [place] [address] [phone] (Nicolas wen) 07/31/2022 Appointment Radiology Tony Rubalcava M.B., ChDaviBDavi, M.D. [address] [place] [address] [phone] (Nicolas wen) 08/01/2022 Office Visit Transplant Tony Rubalcava M.B., ChBurke, MDaviD. [address] [place] [address] [phone] (Nicolas wen) 08/01/2022 Clinical Support Transplant Tony Rubalcava M.B., Ch.BDavi, M.D. [address] [place], [place] 55 [phone] (Wo rk) documented as of this encounter Visit Diagnoses Not on filedocumented in this encounter Additional Health Concerns Assessment Noted Time PHQ-9 Depression Total Score: 4 01/30/2019 12:13 PM CD T documented as of this encounter
--- OUTSIDE RECORDS SUMMARY | 2022-05-25 13:21 | XMS_ITS | Encounter Summary ---
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 Hypertension / Dialysis Brody Garcia 200 [place] [address] Referral ID Status Reason Start Date Expiration Date Visits Requ ested Visits Authorized [id number] Closed 05/02/2019 05/01/2020 1 1 Scheduling Instructions : schedule at [address] Matteo hope dialysis: US completed Encounter Details Date Type Department Care Team Description 05/02/2019 Orders Only Division of Nephrology Steve Martínez Chronic Failure Renal and HypertensionJr. D.O. End Stage Renal [facility], in 200 [facility] Disease Dialysis [place], [place] Dependent (HCC) 200 [facility] [address] (Primary Dx) [place], [place] [phone] (Work) [phone] Social History Tobacco Use Types Packs/Day Years [...] Nicholas APRN, C.N.P., D.N.P., M.S.N. [address] [place] [address] [phone] (Wo behzad) 07/31/2022 Lab Laboratory Medicine Tony Rubalcava M. B., Ch.BDavi, M.D. [address] [place] [address] [phone] (Wo behzad) 07/31/2022 Lab Laboratory Medicine Tony Rubalcava M. B., Sydnie, Mukund [address] [place] [address] [phone] (Wo rk) 07/31/2022 Office Visit Transplant Tony Rubalcava M.B., Sydnie, Mukund [address] [place] [address] [phone] (Wo rk) 07/31/2022 Appointment Radiology Tony Rubalcava M.B., Sydnie, Mukund [address] [place] [address] [phone] (Wo rk) 08/01/2022 Office Visit Transplant Tony Rubalcava M.B., Sydnie, Mukund [address] [place] [address] [phone] (Wo rk) 08/01/2022 Clinical Support Transplant Tony Rubalcava M.B., Sydnie, Mukund [address] [place] [address] [phone] (Wo rk) Scheduled Referrals Name Type Priority Associated Order Schedule Diagnoses Dialysis - Outpatient Referral Routine Chronic Failure Expec rebecca: Hemodialysis access Renal End Stage 05/05 consult (clinic) Renal Disease (Approxima te), Dialysis Dependent Expires: (HCC) 05/02/2022 documented as of this encounter Visit Diagnoses Diagnosis Chronic Failure Renal End Stage Renal Di sease Dialysis Dependent (HCC) - Primary documented in this encounter Additional Health Concerns Assessment Noted Time PHQ-9 Depression Total Score: 4 01/30/2019 12:13 PM CD T documented as of this encounter
--- OUTSIDE RECORDS SUMMARY | 2022-05-25 13:21 | XMS_ITS | Encounter Summary ---
:1960 Author Organization [facility] Address [address] [place] [address] Care Team Providers Name Role Phone Unavailable Primary Care Provider Unavailable Encounter Details Date Type Department Care Team Description 05/02/2019 Clinical Communication Division of Comfort Mims Nephrology in CHRISTOPHER, C.N.P.[place], [place] D.N.P. [address] [place] [address] [address] [place] [phone] [phone] Social History Tobacco Use Types Packs/Day Years [...] How often do you attend adventism or pentecostalism 1 to 4 times per [...] this encounter Miscellaneous Notes Telephone Encounter - Comfort Mims APRN, C.N.Donna, M.S.N. - 05/02/2019 1:00 PM CDT Documents reviewed and order placed. Thanks. Telephone Encounter - Pretty Felton - 05/02/2019 12:00 PM CDT Will do, sorry, I didn't know I needed to get those for [facility] patients. Thank you! Telephone Encounter - Comfort Mims APRN, C.N.Donna, M.S.N. - 05/02/2019 11:46 AM CDT Alejandro Olsen, Please get her Hep B and run sheet from [employer]. Her QuantiFERON is negative in Epic. Thanks. documented in this encounter Plan of Treatment Upcoming Encounters Date Type Specialty Care Team Description 06/01/2022 Telemedicine Pharmacy An Nicholas APRN, C.N.P., Clement., M.S.N. [address] [place] [address] [phone] (Wo rk) 07/31/2022 Lab Laboratory Medicine Tony Rubalcava M. B., ChBurke, MDebra [address] [place] [address] [phone] (Wo rk) 07/31/2022 Lab Laboratory Medicine Tony Rubalcava M. B., Sydnie, Mukund [address] [place] [address] [phone] (Wo rk) 07/31/2022 Office Visit Transplant Tony Rubalcava M.B., ChBurke, Mukund [address] [place] [address] [phone] (Wo rk) 07/31/2022 Appointment Radiology Tony Rubalcava M.B., ChBurke, MDebra [address] [place] [address] [phone] (Wo rk) 08/01/2022 Office Visit Transplant Tony Rubalcava M.B., ChBurke, MDebra [address] [place] [address] [phone] (Wo rk) 08/01/2022 Clinical Support Transplant Tony Rubalcava M.B., Sydnie, MDebra [address] [place] [address] [phone] (Wo rk) documented as of this encounter Visit Diagnoses Not on filedocumented in this encounter Additional Health Concerns Assessment Noted Time PHQ-9 Depression Total Score: 4 01/30/2019 12:13 PM CD T documented as of this encounter
--- OUTSIDE RECORDS SUMMARY | 2022-05-25 13:21 | XMS_ITS | Encounter Summary ---
:1960 Author Organization [facility] Address [address] [place] [address] Care Team Providers Name Role Phone Unavailable Primary Care Provider Unavailable Encounter Details Date Type Department Care Team Description 05/02/2019 Clinical Communication [facility], RN NICU, C.N.P., Transplantation and D.N.P. Clinical Regeneration in [address] [place] [address] [place] [phone] [place] [address] [phone] Social History Tobacco Use Types Packs/Day Years [...] How often do you attend gnosticist or yazdanism 1 to 4 times per [...] An Nicholas APRN C.NDaviP., D.N.P., M.S.N. [address] [place] [address] 55 [phone] (Nicolas rk) 07/31/2022 Lab Laboratory Medicine Tony Rubalcava M. B., Sydnie, MElvia. [address] [place] [address] 55 [phone] ( rk) 07/31/2022 Lab Laboratory Medicine Tony Rubalcava M. B., ChBurke, MDebra [address] [place] [address] 55 [phone] ( rk) 07/31/2022 Office Visit Transplant Tony Rubalcava M.B., Sydnie, MDebra [address] [place] [address] 55 [phone] ( behzad) 07/31/2022 Appointment Radiology Tony Rubalcava M.B., ChBurke, MDebra [address] [place] [address] 55 [phone] ( behzad) 08/01/2022 Office Visit Transplant Tony Rubalcava M.B., Mukund Otoole [address] [place] [address] 55 [phone] (Wo behzad) 08/01/2022 Clinical Support Transplant Tony Rubalcava M.B., Mukund Otoole [address] [place] [address] 55 [phone] (Nicolas wen) documented as of this encounter Visit Diagnoses Diagnosis Pretransplant Recipient Evaluation Exam - Primary Chronic Kidney Disease documented in this encounter Additional Health Concerns Assessment Noted Time PHQ-9 Depression Total Score: 4 01/30/2019 12:13 PM CD T documented as of this encounter
--- OUTSIDE RECORDS SUMMARY | 2022-05-25 13:21 | XMS_ITS | Encounter Summary ---
:[address] [facility] Address [address] [place] [address] Care Team Providers Name Role Phone Unavailable Primary Care Provider Unavailable Encounter Details Date Type Department Care Team Description 05/02/2019 Orders Only Division of Cmofort Mims, Hemodial ysis Status Nephrology and CARDIOVASCULAR OR NURSE, C.N.P., (HCC) (Prima ry Dx) Hypertension, D.N.P. [facility], in [address] [place] [address] [place] [phone] [place], [place] [phone] (Wo rk) [phone] Social History Tobacco Use Types Packs/Day Years [...] How often do you attend episcopalian or sabianism 1 to 4 times per [...] An Nicholas APRN C.N.P., D.N.P., M.S.N. [address] [place] [address] 55 [phone] (Wo rk) 07/31/2022 Lab Laboratory Medicine Tony Rubalcava M. B., Sydnie, MDebra [address] [place] [address] 55 [phone] (Wo rk) 07/31/2022 Lab Laboratory Medicine Tony Rubalcava M. B., ChBurke, MDebra [address] [place] [address] 55 [phone] (Wo rk) 07/31/2022 Office Visit Transplant Tony Rubalcava M.B., Sydnie, MDebra [address] [place] [address] 55 [phone] (Wo rk) 07/31/2022 Appointment Radiology Tony Rubalcava M.B., Sydnie, MDebra [address] [place] [address] [phone] (Wo rk) 08/01/2022 Office Visit Transplant Tony Rubalcava M.B., Mukund Otoole [address] [place] [address] [phone] (Wo rk) 08/01/2022 Clinical Support Transplant Tony Rubalcava M.B., Mukund Otoole [address] [place], [place] 55 [phone] (Wo rk) documented as of this encounter Visit Diagnoses Diagnosis Hemodialysis Status (HCC) - Primary documented in this encounter Additional Health Concerns Assessment Noted Time PHQ-9 Depression Total Score: 4 01/30/2019 12:13 PM CD T documented as of this encounter
--- OUTSIDE RECORDS SUMMARY | 2022-05-25 13:21 | XMS_ITS | Encounter Summary ---
:1960 Author Organization [facility] Address [address] [place] [address] Care Team Providers Name Role Phone Unavailable Primary Care Provider Unavailable Reason for Visit Reason Comments Hemodialysis Access Encounter Details Date Type Department Care Team Description 05/05/2019 Documentation Tom Harrington Hemo dialysis Access [facility] for Transplantation M.B.B.S. and Clinical Regeneration in [facility] bozena [address] [place] [address] Social History Tobacco Use Types Packs/Day [...] How often do you attend anabaptism or latter-day 1 to 4 times per [...] documented as of this encounter Progress Notes Tom Seals M.B.B.S. - 05/05/2019 2:28 PM CDT Ms. Wray presents for evaluation of AV access. 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 She is currently on HD. She was on PD for 5 years before her first transplant. Unfortunately, she has had repeated episodes of peritonitis. She may not be a suitable candidate for PD. The right BCF was created in 2007 but she hardly used it as she received a kidney soon after that. The left BBF was created in 2017 that was used for some time. Both are clotted. She was dialysis through left palindrome that was changed to right Palindrome this morning. She does not have suitable left arm vein for any new access. Her only remaining vein for use as theright basilic vein. However, in the presence of thrombosis in right internal jugular and a Palindrome, there is high risk thrombosis that can cause outflow problems. Moreover, considering her history of frequent clotting of previous vascular accesses, there is possibility that she might develop clot in this last vein after BBF surgery. She told that she was undergoing work up for a second kidney transplantation and also she was being followed up in the Thrombophilia clinic. We can offer right side BBF after completion of her thrombophilia work up. We discussed risks such as bleeding, infection, need for reintervention, failure to mature, or AV steal. All of her questions were answered. documented in this encounter Plan of Treatment Upcoming Encounters Date Type Specialty Care Team Description 06/01/2022 Telemedicine Pharmacy An Nicholas APRN C.N.P., D.N.P., M.S.N. [address] [place] [address] [phone] (Wo rk) 07/31/2022 Lab Laboratory Medicine Tony Rubalcava M. B., Sydnie, Mukund [address] [place] [address] 55 [phone] (Wo rk) 07/31/2022 Lab Laboratory Medicine Tony Rubalcava M. B., Sydnie, Mukund [address] [place] [address] 55 [phone] (Wo rk) 07/31/2022 Office Visit Transplant Tony Rubalcava M.B., Sydnie, Mukund [address] [place] [address] 55 [phone] (Wo rk) 07/31/2022 Appointment Radiology Tony Rubalcava M.B., Sydnie, Mukund [address] [place] [address] 55 [phone] (Wo rk) 08/01/2022 Office Visit Transplant Tony Rubalcava M.B., Sydnie, Mukund [address] [place] [address] 55 [phone] (Wo rk) 08/01/2022 Clinical Support Transplant Tony Rubalcava M.B., Sydnie, MDebra [address] [place] [address] 55 [phone] (Wo rk) documented as of this encounter Visit Diagnoses Not on filedocumented in this encounter Additional Health Concerns Assessment Noted Time PHQ-9 Depression Total Score: 4 01/30/2019 12:13 PM CD T documented as of this encounter
--- OUTSIDE RECORDS SUMMARY | 2022-05-25 13:21 | XMS_ITS | Encounter Summary ---
:1960 Author Organization [facility] Address 200 [place] [address] Care Team Providers Name Role Phone Unavailable Primary Care Provider Unavailable Reason for Referral Specialty Diagnoses / Procedures Referred By Contact Refer red To Contact Comfort Mims APRN, [facility] Frac[place].N.PDavi, D.N.P. 200 [place] [address] Referral ID Status Reason Start Date Expiration Date Visits Requ ested Visits Authorized Encounter Details Date Type Department Care Team Description 05/05/2019 Hospital Encounter Division of Comfort Mims Hemvicky ialysis Status (HCC) (Primary Dx); Nephrology and CHRISTOPHER Moses C.N.PDavi, Chronic F ailure Renal End Stage Renal Disease Dialysis Dependent (HCC); Hypertension, D.N.P. Complication Dialysis Fistula Subsequent [facility], 200 [facility] in [facility] [phone] 200 [facility] [phone] [place], [place] (Work) [phone] Social History Tobacco Use Types Packs/Day [...] How often do you attend baptist or baptism 1 to 4 times per [...] Sign Reading Time Taken Comments Blood Pressure 166/124 05/05/2019 4:04 PM CDT Pulse 78 05/05/2019 4:04 PM CDT Temperature 36.5 ??C (97.7 ??F) 05/05/2019 3:52 PM CDT Respiratory Rate - - Oxygen Saturation - - Inhaled Oxygen Concentration - - Weight 99.9 kg (220 lb 3.8 oz) 05/05/2019 3:52 PM CDT Height - - Body Mass Index 37.46 02/06/2019 9:59 AM CDT documented in this encounter Medications at Time of Discharge Medication Sig Dispensed Refills Start Date End Date hydrocortisone Apply 1 application 0 09/18/2017 (for_HYTONE) 2.5 % topically daily as cream needed (Eczema). cefadroxil (DURICEF) Take 1 capsule (500 7 capsule 0 201805/19/2019 500 mg mg total) by mouth capsuleIndications: daily for 7 days Skin and soft tissue Indications: Skin infection and soft tissue infection. acetaminophen (TYLENOL) Take 2 tablets 0 05/12/20 19 04/07/2022 500 mg tablet (1,000 mg total) by mouth every 6 (six) hours as needed for pain. B complex Take 1 tablet by 0 06/13/2017 05/31/20 19 55-swmrk-B-biot-zinc mouth daily. (DIALYVITE) [phone] xu-fo-ynw-mg tablet calcium carbonate Chew 2 tablets 2 0 0 04/07/2022 (TUMS) 500 mg (200 mg (two) times a day calcium) chewable with meals. Lunch tablet and dinner. ciprofloxacin (CIPRO) Take 1 tablet by 6 tablet 0 09/03/19 19 05/07/2019 250 mg tablet mouth evening prior to stent exchange, 1 tablet evening of, then twice a day until gone. gabapentin (NEURONTIN) Take 2 capsules (200 120 [...] times a day. warfarin (COUMADIN) 2 Take 1.5 tablets (3 135 tablet 3 04/2505/12/2019 mg tablet mg total) by mouth daily. Take as directed per After Visit Summary. warfarin (COUMADIN) 2 Take 2 tablets (4 mg 180 tablet 3 04/2105/16/2019 mg tablet total) by mouth daily. Take 4 mg on 05/12 and 05/13. Have your INR checked on 05/14. Further dosing per local provider. INR goal 2.0-3.0.Take as directed per After Visit Summary. documented as of this encounter Plan of Treatment Upcoming Encounters Date Type Specialty Care Team Description 06/01/2022 Telemedicine Pharmacy An Nicholas APRN, C.N.P., D.N.P., M.S.N. [address] [place] [address] 55 [phone] (Wo rk) 07/31/2022 Lab Laboratory Medicine Tony Rubalcava M. B., Sydnie, Mukund [address] [place] [address] [phone] (Wo rk) 07/31/2022 Lab Laboratory Medicine Tony Rubalcava M. B., Sydnie, Mukund [address] [place] [address] 55 [phone] (Wo rk) 07/31/2022 Office Visit Transplant Tony Rubalcava M.B., Sydnie, Mukund [address] [place] [address] 55 [phone] (Wo rk) 07/31/2022 Appointment Radiology Tony Rubalcava M.B., Sydnie, Mukund [address] [place] [address] [phone] (Wo rk) 08/01/2022 Office Visit Transplant Tony Rubalcava M.B., Sydnie, Mukund [address] [place] [address] [phone] (Wo rk) 08/01/2022 Clinical Support Transplant Tony Rubalcava M.B., Sydnie, Mukund [address] [place] [address] 55 [phone] (Wo rk) Scheduled Referrals Name Type Priority Associated Diagnoses Order S chedule Hemodialysis Outpatient Routine Hemodialysis Status Once for 1 Transient; Referral (HCC) Occurrences starting 05/05/2019 unti l 05/05/2019 documented as of this encounter Visit Diagnoses Diagnosis Hemodialysis Status (HCC) - Primary Chronic Failure Renal End Stage Renal Di sease Dialysis Dependent (HCC) Complication Dialysis Fistula Subsequent documented in this encounter Administered Medications Inactive Administered Medications - up to 3 most recent administrations Medication Order MAR Action Action Date Dose Rate Site NaCl 0.9 % bolus 1-1,000 mL New Bag 05/05/2019 3:50 PM CDT 240 mL 1-1,000 mL, intravenous, As needed, for dialysis including prime, rinse back, oil pipeline dispatcher, flush, or hypotension, Starting on Sun05/05/19 at 1344, For prime and rinse back: Prime to [...] after administering 400 mL of 0.9% NaCL. New Bag 05/05/2019 3:49 PM CDT 10 mL New Bag 05/05/2019 3:48 PM CDT 10 mL documented in this encounter Additional Health Concerns Assessment Noted Time PHQ-9 Depression Total Score: 4 01/30/2019 12:13 PM CD T documented as of this encounter
--- OUTSIDE RECORDS SUMMARY | 2022-05-25 13:21 | XMS_ITS | Encounter Summary ---
:1960 Author Organization [facility] Address [address] [place] [address] Care Team Providers Name Role Phone Unavailable Primary Care Provider Unavailable Encounter Details Date Type Department Care Team Description 05/05/2019 Hospital Encounter Department of Alexa Adan [email or web address] Recipient Evaluation Exam; Laboratory Medicine M, DESIGN ENGINEER PRODUCTS, C.N.P., Manager Underwriting taran Kidney Disease and Pathology, D.N.P. [place], in [address] [place] [phone] [place] [address] [place], [place] (Work) [phone] Social History Tobacco Use Types Packs/Day Years [...] How often do you attend yazidi or taoism 1 to 4 times per [...] Take 1 tablet by 0 06/13/2017 05/31/20 56-ohruv-F-biot-zinc mouth daily. (DIALYVITE) [phone] hw-fz-rsr-mg tablet calcium carbonate Chew 2 tablets 2 [...] Nicholas APRN C.N.P., D.N.P., M.S.N. [address] [place] [address] 55 [phone] (Nicolas wen) 07/31/2022 Lab Laboratory Medicine Tony Rubalcava M. B., Ch.B., M.D. [address] [place] [address] 55 [phone] (Nicolas wen) 07/31/2022 Lab Laboratory Medicine Tony Rubalcava M. B., Ch.B., M.D. [address] [place] [address] 55 [phone] (Nicolas wen) 07/31/2022 Office Visit Transplant Tony Rubalcava M.B., Ch.B., M.D. [address] [place] [address] 55 [phone] (Nicolas wen) 07/31/2022 Appointment Radiology Tony Rubalcava M.B., Ch.B., M.D. [address] [place] [address] 55 [phone] (Nicolas wen) 08/01/2022 Office Visit Transplant Tony Rubalcava M.B., Mukund Otoole [address] [place] [address] 55 [phone] (Wo behzad) 08/01/2022 Clinical Support Transplant Tony Rubalcava M.B., Mukund Otoole [address] [place], [place] 55 [phone] (Nicolas wen) documented as of this encounter Visit Diagnoses Diagnosis Pretransplant Recipient Evaluation Exam Chronic Kidney Disease documented in this encounter Additional Health Concerns Assessment Noted Time PHQ-9 Depression Total Score: 4 01/30/2019 12:13 PM CD T documented as of this encounter
--- OUTSIDE RECORDS SUMMARY | 2022-05-25 13:21 | XMS_ITS | Encounter Summary ---
:1960 Author Organization [facility] Address [address] [place] [address] Care Team Providers Name Role Phone Unavailable Primary Care Provider Unavailable Encounter Details Date Type Department Care Team Description 05/02/2019 Documentation Division of Nephrology Elo Trevizo, [facility] [address] [place] [address] [place] [phone] [place] [address] [phone] Social History Tobacco Use Types Packs/Day Years [...] How often do you attend anabaptist or zoroastrianism 1 to 4 times per [...] encounter Nursing Notes Elo Trevizo R.N. - 05/02/2019 8:[address] Martínez. CHIEF COMPLAINT/PURPOSE OF VISIT REASON FOR REFERRAL: Tunneled dialysis catheter exchange; using TPA before every treatment, still not achieving optimal BFR's HISTORY OF PRESENT ILLNESS ACCESS: Palindrome Catheter Date placed - 04/25/19 Provider - Dr. Mcconnell LOCATION OF ACCESS: Left internal jugular PERTINENT PROCEDURAL HISTORY: Patient referred by Dr. Martínez for tunneled dialysis catheter exchange. She is being referred due to poor blood flow rates despite the use of TPA. She dialyzes at [facility] unit on a Sunday, Sunday and Sunday schedule. PACEMAKER: No DIABETES: Not diabetic ANTICOAGULATION: Takes Coumadin but no other anticoagulation medications. LABORATORY RESULTS: Current Labs in [facility] from 04/04/19. IMPRESSION/REPORT/PLAN SPECIFIC PATIENT INSTRUCTIONS: [facility] May [facility] at 08:00 am. You must have a book salesman to drive you home due to the [...] that you take with you. If you are on Coumadin or blood thinners, please follow these instructions: If on Coumadin, INR check instructions: Per Dr. Martínez's instructions. Per his note from today chasehas been instructed to hold this. Plan on spending about half to three fourths of the day in [place] for this procedure. There is generally some waiting involved prior to the procedure. Post Access Instructions: I spoke with Shae the charge nurse from [facility] and she is arranging forher to have dialysis on Sunday morning. She reports that she will not need an extra session prior to then. She is running right now and typically does not have a lot of excess fluid and potassium levels have not been concerning. Appointment scheduled via [place] at Interventional Radiology. Appointment discussed with the charge nurse and the appointment guide was faxed to the unit. documented in this encounter Plan of Treatment Upcoming Encounters Date Type Specialty Care Team Description 06/01/2022 Telemedicine Pharmacy An Nicholas APRN, C.N.P., D.N.P., M.S.N. [address] [place] [address] [phone] (Wo rk) 07/31/2022 Lab Laboratory Medicine Tony Rubalcava M. B., ChBurke, MElvia. [address] [place] [address] [phone] (Wo rk) 07/31/2022 Lab Laboratory Medicine Tony Rubalcava M. B., ChBurke, MDebra [address] [place] [address] 55 [phone] (Wo rk) 07/31/2022 Office Visit Transplant Tony Rubalcava M.B., ChBurke, MDebra [address] [place] [address] 55 [phone] (Wo rk) 07/31/2022 Appointment Radiology Tony Rubalcava M.B., Sydnie, MDebra [address] [place] [address] [phone] (Wo rk) 08/01/2022 Office Visit Transplant Tony Rubalcava M.B., Mukund Otoole [address] [place] [address] 55 [phone] (Wo rk) 08/01/2022 Clinical Support Transplant Tony Rubalcava M.B., Mukund Otoole [address] [place] [address] 55 [phone] (Wo rk) documented as of this encounter Visit Diagnoses Not on filedocumented in this encounter Additional Health Concerns Assessment Noted Time PHQ-9 Depression Total Score: 4 01/30/2019 12:13 PM CD T documented as of this encounter
--- OUTSIDE RECORDS SUMMARY | 2022-05-25 13:22 | XMS_ITS | Encounter Summary ---
:1960 Author Organization [facility] Address [address] [place] [address] Care Team Providers Name Role Phone Unavailable Primary Care Provider Unavailable Reason for Visit Reason Comments Dialysis Visit Encounter Details Date Type Department Care Team Description 04/11/2019 Documentation Division of Nephrology Deanne Fisher, Dialysis Visit and Hypertension in GRAINING MACHINE OPERATOR, C.N.P. , M.S.N. [place], [place] [address] [facility] [address] [place] [phone] (Wo rk) Social History Tobacco Use Types [...] often do you attend latter day or orthodox 1 to 4 times per [...] Notes Deanne Fisher, CHRISTOPHER, C.N.P., M.S.N. - 04/11/2019 10:54 AM CDT Ms. Wray was seen during rounds at the [facility] outpatient dialysis unit today. The first hour of her treatment went relatively well, though we were unable to aspirate blood from the venous lumen of her dialysis catheter initially. About 1 hour into her dialysis treatment, she again had h ypoxia, with oxygen saturations in the 80s on room air and shortness of breath. Her symptoms improved with supplemental oxygen. During this time, she was also noted to have high pressure alarms and airin her dialysis circuit which came from the arterial line. The nursing staff quickly pulled the air from the dialysis lines and were able to safely resume Ms. Wray's dialysis. They ended up havingto reverse the ports due to ongoing pressure difficulties. Fortunately, the venous lumen began allowing aspiration. Ms. Wray is undergoing an echocardiogram in [place] today as we are concerned about clot burden. Since the time of her current dialysis catheter placement, we have had significant difficulties each dialysis session with similar situations as today. Please see numerous notes in her record in both [facility] and [facility] documenting these events. We are attempting to discover the etiology of boththese recent events and also the recent multiple clotting events Ms. Wray has experienced. Of note, her thrombophilia panel from yesterday was overall fairly normal, but does reveal an elevated fibrinogen, fibrinogen equivalents and d-dimer. Ms. Wray is aware that if clot is found on her echocardiogram today, she may even require hospitalization for anticoagulation. She understands this possibility. documented in this encounter Plan of Treatment Upcoming Encounters Date Type Specialty Care Team Description 06/01/2022 Telemedicine Pharmacy An Nicholas APRN, C.N.P., [place], M.S.N. [address] [place] [address] 55 [phone] (Nicolas wen) 07/31/2022 Lab Laboratory Medicine Tony Rubalcava M. B., ChBurke, MDebra [address] [place] [address] [phone] (Nicolas wen) 07/31/2022 Lab Laboratory Medicine Tony Rubalcava M. B., ChBurke, MDebra [address] [place] [address] 55 [phone] (Nicolas wen) 07/31/2022 Office Visit Transplant Tony Rubalcava M.B., ChBurke, MDaviDDavi [address] [place] [address] 55 [phone] (Nicolas wen) 07/31/2022 Appointment Radiology Tony Rubalcava M.B., ChBurke, MDaviD. [address] [place] [address] 55 [phone] (Nicolas wen) 08/01/2022 Office Visit Transplant Tony Rubalcava M.B., ChBurke, MDaviD. [address] [place] [address] 55 [phone] (Nicolas wen) 08/01/2022 Clinical Support Transplant Tony Rubalcava M.B., Mukund Otoole [address] [place], [place] 55 [phone] (Wo rk) documented as of this encounter Visit Diagnoses Not on filedocumented in this encounter Additional Health Concerns Assessment Noted Time PHQ-9 Depression Total Score: 4 01/30/2019 12:13 PM CD T documented as of this encounter
--- OUTSIDE RECORDS SUMMARY | 2022-05-25 13:22 | XMS_ITS | Encounter Summary ---
:1960 Author Organization [facility] Address [address] [place] [address] Care Team Providers Name Role Phone Unavailable Primary Care Provider Unavailable Encounter Details Date Type Department Care Team Description 04/11/2019 Orders Only Division of Nephrology Deanne Fisher omplication Dialysis and Hypertension in L, CHRISTOPHER C.N.P., Tawnya poole [place], [place] M.S.N. (Primary Dx) [address] [facility] [address] [place] [id number] [phone] Social History Tobacco Use Types Packs/Day Years [...] How often do you attend nondenominational or mormon 1 to 4 times per [...] An Nicholas APRN C.NDaviP., D.N.P., M.S.N. [address] [place] [address] [phone] (Wo rk) 07/31/2022 Lab Laboratory Medicine Tony Rubalcava M. B., Sydnie, MDebra [address] [place] [address] [phone] (Wo rk) 07/31/2022 Lab Laboratory Medicine Tony Rubalcava M. B., ChBurke, MDebra [address] [place] [address] [phone] (Wo rk) 07/31/2022 Office Visit Transplant Tony Rubalcava M.B., Sydnie, MDebra [address] [place] [address] [phone] ( rk) 07/31/2022 Appointment Radiology Tony Rubalcava M.B., Sydnie, MDebra [address] [place] [address] [phone] (Wo rk) 08/01/2022 Office Visit Transplant Tony Rubalcava M.B., Mukund Otoole [address] [place], [place] 55 [phone] (Wo rk) 08/01/2022 Clinical Support Transplant Tony Rubalcava M.B., Mukund Otoole [address] [place], [place] [phone] (Wo rk) documented as of this encounter Results IR Dialysis / High Flow Catheter Exchange (04/15/2019 11:03 AM CDT) Anatomical Region Laterality Modality Body, Vascular Interventional RST LOS, Vascular N/A X-Ray Angiography Interventional ARZ LOS, Vascular Interventional FLA LOS Specimen (Source) Anatomical Collection Method Collection Time Re ceived Time Location / / Volume Laterality 04/15/2019 11:11 AM CDT Impressions 04/15/2019 11:34 AM CDT 1. Superior venacavogram demonstrates the SVC is widely patent. 2. Exchange of the left IJV tunneled radhika lysis catheter. Ready for use. NR Narrative 04/15/2019 11:34 AM CDT EXAM: IR DIALYSIS / HIGH FLOW CATHETER EXCHANGE CLINICAL HISTORY: 58-year-old female wit h left IJV tunneled dialysis catheter placed on 03/31/2019. The catheter has h ad poor flow for the last 1.5 weeks. Patient presents for dialysis catheter e xchange. TECHNIQUE: The left neck and chest were prepped and draped in sterile fashion. Lidocaine used for local anesthesia. Sco ut image demonstrates the dialysis catheter tip was malpositioned into the azygos vein. The catheter was withdrawn into the left innominate vein and superi or venacavogram demonstrates the SVC was widely patent. The catheter was exchange d over 2 stiff-angled Glidewires for a new 14.5 Serbian x [address] Final radiograph demonstrates the catheter tip in the upper right atrium. Both lumens flush and aspirate well and were locked with 4% sodium citrate. Cath eter secured to the skin with 2-0 Prolene stitch. No immediate complicatio n. For placement of this central venous acc [...] procedure. The total intra-procedural sedation time was: 31 m inutes. Procedure Note Julius Kent M.D. - 04/15/2019For matting of this note might be different from the original. EXAM: IR DIALYSIS / HIGH FLOW CATHETER E XCHANGE CLINICAL HISTORY: 58-year-old female wit h left IJV tunneled dialysis catheter placed on 03/31/2019. The catheter has h ad poor flow for the last 1.5 weeks. Patient presents for dialysis catheter e xchange. TECHNIQUE: The left neck and chest were prepped and draped in sterile fashion. Lidocaine used for local anesthesia. Sco ut image demonstrates the dialysis catheter tip was malpositioned into the azygos vein. The catheter was withdrawn into the left innominate vein and superi or venacavogram demonstrates the SVC was widely patent. The catheter was exchange d over 2 stiff-angled Glidewires for a new 14.5 Serbian x [address] Final radiograph demonstrates the catheter tip in the upper right atrium. Both lumens flush and aspirate well and were locked with 4% sodium citrate. Cath eter secured to the skin with 2-0 Prolene stitch. No immediate complicatio n. For placement of this central venous acc [...] procedure. The total intra-procedural sedation time was: 31 m inutes. IMPRESSION: 1. Superior venacavogram demonstrates th e SVC is widely patent. 2. Exchange of the left IJV tunneled radhika lysis catheter. Ready for use. NR Deanne Fisher APRN, C.N.P., M.S.N. IMG IR PROCEDUR ES documented in this encounter Visit Diagnoses Diagnosis Complication Dialysis Catheter Initial - Primary Complication Dialysis Catheter Initial documented in this encounter Additional Health Concerns Assessment Noted Time PHQ-9 Depression Total Score: 4 01/30/2019 12:13 PM CD T documented as of this encounter
--- OUTSIDE RECORDS SUMMARY | 2022-05-25 13:22 | XMS_ITS | Encounter Summary ---
:1960 Author Organization [facility] Address [address] [place] [address] Care Team Providers Name Role Phone Unavailable Primary Care Provider Unavailable Encounter Details Date Type Department Care Team Description 04/11/2019 Documentation Division of Nephrology and Samuel Fortune, Hypertension in [facility] [address] [facility] 200 [place] [phone] Social History Tobacco Use Types Packs/Day Years [...] How often do you attend sabianism or mu-ism 1 to 4 times per [...] documented as of this encounter Progress Notes Juliana Fortune R.N. - 04/11/2019 2:30 PM CDT REFERRAL GENERAL OPERATIONS AGENT: Deanne Fisher CNP CHIEF COMPLAINT/PURPOSE OF VISIT REASON FOR REFERRAL: Tunneled dialysis catheter exchange due to poor flow. HISTORY OF PRESENT ILLNESS ACCESS: Palindrome Catheter Date placed - 03/31/19 Provider - Dr. Terry Kingsley LOCATION OF ACCESS: Left internal jugular PERTINENT PROCEDURAL HISTORY: Patient referred by Deanne Fisher CNP for tunneled dialysis catheter exchange. She is being referred due to poor blood flow despite the use of TPA. She dialyzes at the [facility] dialysis unit on a Sunday, Sunday and Sunday schedule. PACEMAKER:No DIABETES: No diabetes ANTICOAGULATION: Takes no anticoagulation medications. LABORATORY RESULTS: Please see Epic labs from 04/04/19. ALLERGIES/ADVERSE REACTIONS Allergies Allergen Reactions ??? Epoetin Rolando GI intolerance ERYTHROPOIETIN- vomiting ??? Latex Other (see comments) Eczema IMPRESSION/REPORT/PLAN SPECIFIC PATIENT INSTRUCTIONS: Patient instructed to report to the [facility], Gurpreet Estrella, Howard M-D 04/15/19 at 9 am. You must have a resistor winder to drive you home due to the [...] to three fourths of the day in [place] for this procedure. There is generally some waiting involved prior to the procedure. Post Access Instructions: Dialysis at -. Appointment scheduled via Sary at Interventional Radiology. documented in this encounter Plan of Treatment Upcoming Encounters Date Type Specialty Care Team Description 06/01/2022 Telemedicine Pharmacy An Nicholas APRN C.N.PDavi, D.N.P., M.S.N. [address] [place] [address] [phone] (Wo rk) 07/31/2022 Lab Laboratory Medicine Tony Rubalcava M. B., Sydnie, Mukund [address] [place] [phone] (Wo rk) 07/31/2022 Lab Laboratory Medicine Tony Rubalcava M. B., Sydnie, Mukund [address] [place] [phone] (Wo rk) 07/31/2022 Office Visit Transplant Tony Rubalcava M.B., Sydnie, Mukund [address] [place] [address] [phone] (Wo rk) 07/31/2022 Appointment Radiology Tony Rubalcava M.B., Sydnie, MDebra [address] [place] [address] [phone] (Wo rk) 08/01/2022 Office Visit Transplant Tony Rubalcava M.B., Sydnie, MDebra [address] [place] [address] [phone] (Wo rk) 08/01/2022 Clinical Support Transplant Tony Rubalcava M.B., Ch.Mukund Richards [address] [place], [place] 55 [phone] (Wo rk) documented as of this encounter Visit Diagnoses Not on filedocumented in this encounter Additional Health Concerns Assessment Noted Time PHQ-9 Depression Total Score: 4 01/30/2019 12:13 PM CD T documented as of this encounter
--- OUTSIDE RECORDS SUMMARY | 2022-05-25 13:22 | XMS_ITS | Encounter Summary ---
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 cephalexin (KEFLEX) 500 Take 1 capsule (500 7 capsule 0 04/11/2019 mg capsule mg total) by mouth daily for 7 days. On dialysis days, take dose after dialysis has been completed. acetaminophen (TYLENOL) Take 2 tablets 0 05/12/2004/07/2022 500 mg tablet (1,000 mg total) by mouth every 6 (six) hours as needed for pain. B complex Take 1 tablet by 0 06/13/2017 05/31/20 89-aiwhm-N-biot-zinc mouth daily. (DIALYVITE) [phone] ye-bk-gru-mg tablet calcium carbonate Chew 2 tablets 2 [...] (EMLA) 2.5-2.5 % cream topically as directed. mupirocin (BACTROBAN) 2 Apply 1 application 22 g 1 11/201704/25/2019 % ointmentIndications: topically 3 (three) Paronychia Finger Left times a day. For 14 days mycophenolate Take 1 capsule (250 180 capsule [...] by mouth 2 (two) times a day. tamsulosin (FLOMAX) 0.4 Take 1 capsule (0.4 30 capsule 2 04/25/2019 mg 24 hr capsule mg total) by mouth daily as needed (spasm pain assoc with stent). warfarin (COUMADIN) 2 Take 2 tablets (4 [...] Nicholas APRN, C.N.P., D.N.P., M.S.N. [address] [place] [address] [phone] (Wo rk) 07/31/2022 Lab Laboratory Medicine Tony Rubalcava M. B., Ch.B., M.D. [address] [place] [address] [phone] (Wo rk) 07/31/2022 Lab Laboratory Medicine Tony Rubalcvaa M. B., Ch.B., M.D. [address] [place] [address] [phone] (Wo rk) 07/31/2022 Office Visit Transplant Tony Rubalcava M.B., Mukund Otoole [address] [place] [address] [phone] (Wo rk) 07/31/2022 Appointment Radiology Tony Rubalcava M.B., Mukund Otoole [address] [place] [address] [phone] (Wo rk) 08/01/2022 Office Visit Transplant Tony Rubalcava M.B., Mukund Otoole [address] [place] [address] [phone] (Wo rk) 08/01/2022 Clinical Support Transplant Tony Rubalcava M.B., Mukund Otoole [address] [place] [address] [phone] (Wo behzad) documented as of this encounter Procedures Procedure Name Priority Date/Time Associated Diagnosis Comme nts THROMBOPHILIA PROF Routine 04/10/2019 9:45 AM Chronic Embolism And Results for this CDT Thrombosis Of Right procedur e are in Internal Jugular the results Vein (HCC) section. Complication Dialysis Fistula Subsequent documented in this encounter Results (ABNORMAL) Thrombophilia Profile (04/10/2019 9:45 AM CDT) P athologist Signature Prothrombin Time 11.5 10.3 - 04/10/2019 (PT), P 12.8 sec 11:30 AM CDT INR 1.0 04/10/2019 11:30 AM CDT Activated 28 26 - 36 04/10/2019 Partial sec 11:29 AM CDT Thrombopl Time, P DRVVT Screen 1.1 0.0 - 1.1 04/10/2019 Ratio ratio 11:29 AM CDT Thrombin Time 19 15 - 23 04/10/2019 (Bovine), P sec 11:29 AM CDT Comment: ----ADDITIONAL INFORMATION---- This test has been modified from the man ufacturer's instructions. Its performance characteri stics were determined by [facility] in a manner co nsistent with CLIA requirements. This test has not bee n cleared or approved by the U.S. Food and Drug Admin istration. Fibrinogen, P 725 (H) 200 - 430 mg/dL 04/10/2019 11:09 AM CDT Comment: ----ADDITIONAL INFORMATION---- This test has been modified from the [employer]'s instructions. Its performance characteri stics were determined by [facility] in a manner co nsistent with CLIA requirements. This test has not bee n cleared or approved by the U.S. Food and Drug Admin istration. Fibrinogen Equivalent 3.59 (H) 0.00 - 0.50 mcg/mL 9 11:52 AM CDT Units (FEU) FEU D-Dimer Units (DDU) 1795 (H) 0 - 250 ng/mL D-Dimer 04/10/20 19 11:52 AM CDT Soluble Fibrin Monomer <8 0.0 - 7.9 mcg/mL 04/10/2019 11:52 AM CDT Comment: ----ADDITIONAL INFORMATION---- This test was developed and its performa nce characteristics determined by [facility] in a manner co nsistent with CLIA requirements. This test has not bee n cleared or approved by the U.S. Food and Drug Admin istration. Antithrombin Activity, P 95 80 - 130 % 04/10/2019 11: 06 AM CDT Comment: ----ADDITIONAL INFORMATION---- This test has been modified from the [employer]'s instructions. Its performance characteri stics were determined by [facility] in a manner co nsistent with CLIA requirements. This test has not bee n cleared or approved by the U.S. Food and Drug Admin istration. Protein C Activity, P 101 70 - 150 % 04/10/2019 11:28 AM CDT Comment: ----ADDITIONAL INFORMATION---- This test has been modified from the [employer]'s instructions. Its performance characteri stics were determined by [facility] in a manner co nsistent with CLIA requirements. This test has not bee n cleared or approved by the U.S. Food and Drug Admin istration. Protein S Ag, Free, P 116 65 - 160 % 04/10/2019 11:07 AM CDT Comment: ----ADDITIONAL INFORMATION---- This test has been modified from the man ufacturer's instructions. Its performance characteri stics were determined by [facility] in a manner co nsistent with CLIA requirements. This test has not bee n cleared or approved by the U.S. Food and Drug Admin istration. APCRV Ratio 3.0 >or=2.3 04/10/2019 11:13 AM CDT Prothrombin [id number] Negative Negative 04/11/2019 5:03 PM Mutation, B CDT PTNT Reviewed By ASHLEY Dias 04/11/2019 5:03 PM CDT PTNT Interpretation This individual DOES NOT hav e the Prothrombin [id number] mutation. Although the 04/11/2019 5:03 PM Prothrombin [id number] mutation is absent, the jaz mitchell may have other genetic CDT and environmental risk factors for thrombosis. Bryceide r genetic consultation and counseling of potentially affected family members regard ing laboratory testing. Reviewed by: Ann Renteria M.D. 04/15/2019 10:27 A M CDT Interpretation ?Type of Study: ?? Thrombophilia Profile 04/15/2019 10:27 AM ?IMPRESSION: ??1) Lavon rebecca D-dimer and fibrinogen; see comments and suggest CDT clinical correlation with patient medical status. ?2) No identifiable congenital or acquired thrombotic d iathesis (thrombophilia) within limitations of test repertoire. ?3) If indicated for ad ditional thrombophilia assessment, consider testing for anticardiolipin and/or anti-beta 2 glycoprot ein I antibodies (IgG and IgM isotypes). ?COMMENTS: ??Fibrin D-dimer elevation is indicative of increased intravascular coagulation and fibrinolysis (ICF) , as can occur in association with recent bleeding, surgery or thromboembolism, hypercoagu lable or hyperfibrinolytic states, liver disease, or clinical ICF/DIC (disseminated intravascular coagulation). ??The normal soluble fibrin monomer complex (SFMC) provides no additional evidence of increased intravascular c oagulation or ICF/DIC, within assay sensitivity. Suggest clinical correlat ion. ?Fibrinogen is an acute phase react ant and increases with aging; chronic, significant elevation is an epidemiologic thrombosis risk fa ctor. ?No evidence of lupus a nticoagulant (LAC) or dysfibrinogenemia. ??Normal or elevated levels of antithrombin, protein C and protein S. ?No evidence of resistance to activated protein C (APC) ; therefore, DNA-based testing for the factor V Leiden (R506Q ) mutation was not performed. ?DNA-based testing demonstrates that the patient does N OT have the prothrombin [id number] mutation. Specimen Anatomical Collection Method Collection Time Receive d Time (Source) Location / / Volume Laterality Blood (Blood, 04/10/2019 9:45 AM 04/10/20 Venous) CDT 10:[address] [facility] - 04/15/2019 10:28 AM CDT Specimen Information: Specimen ID: [id number] Specimen Type: Blood Specimen Collection Start Date: 04/10/20 ??9:45 AM Specimen Received Date: 04/10/2019 10:14 AM Specimen ID: [id number] Specimen Type: Blood Specimen Collection Start Date: 04/10/20 ??9:45 AM Specimen Received Date: 04/10/2019 10:15 AM Specimen ID: [id number] Specimen Type: Blood Specimen Collection Start Date: 04/10/20 ??9:45 AM Specimen Received Date: 04/10/2019 10:15 AM Specimen ID: [id number] Specimen Type: Blood Specimen Collection Start Date: 04/10/20 ??9:45 AM Specimen Received Date: 04/10/2019 10:14 AM Specimen ID: [id number] Specimen Type: Blood Specimen Collection Start Date: 04/10/20 ??9:45 AM Specimen Received Date: 04/10/2019 10:15 AM Specimen ID: [id number] Specimen Type: Blood Specimen Collection Start Date: 04/10/20 ??9:45 AM Specimen Received Date: 04/10/2019 10:36 AM Deanne Fisher APRN C.N.P., M.S.N. LAB BLOOD NON A DD-ON Performing Organization Address City/State/ZIP Code Phon e Number [facility] - [address] [facility] [place] [address] 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
--- OUTSIDE RECORDS SUMMARY | 2022-05-25 13:22 | XMS_ITS | Encounter Summary ---
:1960 Author Organization [facility] Address [address] [place] [address] Care Team Providers Name Role Phone Unavailable Primary Care Provider Unavailable Encounter Details Date Type Department Care Team Description 04/25/2019 Documentation Division of Nephrology and Josr Martínez Hypertension in [place], ., D.O. [place] [address] [facility] 200 [place] [phone] (Wo rk) Social History Tobacco Use Types [...] How often do you attend hinduism or anabaptism 1 to 4 times per [...] Progress Notes Steve Martínez Jr., D.O. - 04/25/2019 6:10 AM CDT Phone call this morning at 6:00 a.m. from the dialysis center in [facility]. Unfortunately once again her catheter is dysfunctional and unable to be run. We had used Activase on the catheter on Sunday, and we were able to achieve a blood flow approximately 250 cc/minute and have a treatment completed. She is on low-dose warfarin, as a therapeutic trial to see whether we could maintain catheter patency. She is currently on 3 mg orally daily, having increased from 2 mg orally daily on Sunday. Her INR this week, on Sunday was 1.3. Today once again her left-sided tunneled dialysis catheter is dysfunctional and unable to be run. The team has flushed, aspirated, turned the hub, reposition the patient, and unfortunately is unable toget the catheter to function. This is extraordinarily frustrating, and in fact, becoming life-threatening. We are going to ask for an urgent catheter exchange, I am hopeful that we could potentially have thecatheter replaced on the right side if at all possible. I will ask for a CT new catheter to be placed today, the dialysis team in [facility] will be able to have her dialyzed tomorrow. I will arrange for an INR to be checked stat as she arrives today, and the patient had a very minimal breakfast, with a few sips of juice only. #1 Dysfunctional dialysis catheter #2 End-stage renal disease on incenter hemodialysis #3 Active on the donor kidney transplant wait list #4 Hypertension #5 Low-dose oral anticoagulation documented in this encounter Plan of Treatment Upcoming Encounters Date Type Specialty Care Team Description 06/01/2022 Telemedicine Pharmacy An Nicholas APRN, C.NDaviPDavi, Michelle.N.PDavi, M.S.N. [address] [place] [address] [phone] (Wo rk) 07/31/2022 Lab Laboratory Medicine Tony Rubalcava M. B., Sydnie, Mukund [address] [place] [address] [phone] (Wo rk) 07/31/2022 Lab Laboratory Medicine Tony Rubalcava M. B., Sydnie, Mukund [address] [place] [address] [phone] (Wo rk) 07/31/2022 Office Visit Transplant Tony Rubalcava M.B., Sydnie, MDebra [address] [place] [address] [phone] (Wo rk) 07/31/2022 Appointment Radiology Tony Rubalcava M.B., ChBurke, Mukund [address] [place] [address] [phone] (Wo rk) 08/01/2022 Office Visit Transplant Tony Rubalacva M.B., Sydnie, MDebra [address] [place] [address] [phone] (Wo rk) 08/01/2022 Clinical Support Transplant Tony Rubalcava M.B., Sydnie, MDebra [address] [place] [address] 55 [phone] (Wo rk) documented as of this encounter Visit Diagnoses Not on filedocumented in this encounter Additional Health Concerns Assessment Noted Time PHQ-9 Depression Total Score: 4 01/30/2019 12:13 PM CD T documented as of this encounter
--- OUTSIDE RECORDS SUMMARY | 2022-05-25 13:22 | XMS_ITS | Encounter Summary ---
:1960 Author Organization [facility] Address [address] [place] [address] Care Team Providers Name Role Phone Unavailable Primary Care Provider Unavailable Encounter Details Date Type Department Care Team Description 04/25/2019 Orders Only Division of Nephrology and Neymar Martínez Hypertension in [place], ., D.O. [place] [address] [facility] 200 [place] [phone] (Wo rk) Social History Tobacco Use Types [...] How often do you attend methodist or taoism 1 to 4 times per [...] An Nicholas APRN C.N.P., D.N.P., M.S.N. [address] [place] [address] [phone] (Nicolas wen) 07/31/2022 Lab Laboratory Medicine Tony Rubalcava M. B., ChBurke, MElvia. [address] [place] [address] [phone] (Nicolas wen) 07/31/2022 Lab Laboratory Medicine Tony Rubalcava M. B., ChBurke, MEvlia. [address] [place] [address] [phone] (Nicolas wen) 07/31/2022 Office Visit Transplant Tony Rubalcava M.B., ChDaviBDavi, MElvia. [address] [place] [address] 55 [phone] (Nicolas wen) 07/31/2022 Appointment Radiology Tony Rubalcava M.B., ChDaviBDavi, MDaviD. [address] [place] [address] 55 [phone] (Nicolas wen) 08/01/2022 Office Visit Transplant Tony Rubalcava M.B., Mukund Otoole [address] [place], [place] 55 [phone] (Wo behzad) 08/01/2022 Clinical Support Transplant Tony Rubalcava M.B., Mukund Otoole [address] [place], [place] [phone] (Nicolas wen) documented as of this encounter Visit Diagnoses Not on filedocumented in this encounter Additional Health Concerns Assessment Noted Time PHQ-9 Depression Total Score: 4 01/30/2019 12:13 PM CD T documented as of this encounter
--- OUTSIDE RECORDS SUMMARY | 2022-05-25 13:22 | XMS_ITS | Encounter Summary ---
:1960 Author Organization [facility] Address [address] [place] [address] Care Team Providers Name Role Phone Unavailable Primary Care Provider Unavailable Reason for Referral Specialty Diagnoses / Procedures Referred By Contact Refer red To Contact Deanne Fisher APRN, [facility] Fracisco.N.Donna, M.S.N. [address] [place] [address] Referral ID Status Reason Start Date Expiration Date Visits Requ ested Visits Authorized Scheduling Instructions 03/31/2019 after dialysis catheter placem ent Encounter Details Date Type Department Care Team Description 04/15/2019 Hospital Encounter Division of Deanne Fisher Chron ic Failure Renal End Stage Renal Disease Dialysis Dependent (HCC) (Primary Dx); Nephrology and CHRISTOPHER Bruno C.N.PDavi, Complicat ion Dialysis Fistula Subsequent Hypertension, M.S.N. [facility], 200 [facility] in [facility] [phone] 200 [facility] [phone] [place], [place] (Work) [phone] Social History Tobacco Use [...] How often do you attend anabaptist or buddhism 1 to 4 times per [...] Sign Reading Time Taken Comments Blood Pressure 176/125 04/15/2019 3:30 PM CDT Pulse 61 04/15/2019 3:30 PM CDT Temperature 36.6 ??C (97.9 ??F) 04/15/2019 3:30 PM CDT Respiratory Rate - - Oxygen [...] 1 tablet by 0 06/13/2017 05/31/20 19 50-kklok-P-biot-zinc mouth daily. (DIALYVITE) [phone] nd-mg-uql-mg tablet calcium carbonate Chew 2 tablets 2 [...] assoc with stent). warfarin (COUMADIN) 2 Take 1 tablet (2 mg 90 tablet 3 04/1404/25/2019 mg tablet total) by mouth daily. Take as directed [...] as of this encounter Progress Notes Shanon Andersen APRN C.N.P. - 04/15/2019 4:36 PM CDT BRIEF DIALYSIS ROUNDING NOTE I saw Ms. Wray on Dialysis rounds today 04/15/2019. The patient just had a dialysis catheter replaced over wire today. She was dialyzing to be certain the catheter worked well before transitioning back to her home unit in [place]. Unfortunately, after less than 30 minutes of dialysis she will clotting machine, the catheter was working with a very flow poor blood flow. Fortunately, I spoke with Deanne Fisher who knows the patient well. She recommended a begin heparin infusion during the dialysis. We set up a new dialyzer, instilled Heparin and she is running very well. She will return to [place] for her normally scheduled hemodialysis tomorrow. Additionally, I ordered heparin lock to be placed in the catheter for patency. BP (!) 158/115 Pulse 61 PHYSICAL EXAM General appearance: alert and interactive and cooperative Vascular access: Catheter - exit site clean and dry. sluggish flows until heparin was instilled into the dialysis blood lines. IRP ESRD -catheter is working well with heparin infusion. She will return to her normally scheduled hemodialysis in [place] tomorrow. documented in this encounter Nursing Notes Clarissa Weston R.N. - 04/15/2019 3:41 PM CDT Patient treatment started poorly from the beginning today right after being hooked on the machine, the arterial line started alarming the lines were reversed and flushed and BFR turned down to 300 [id number] but that did not improve,BFR was turned further down to 250 but still continued to alarm.MUSHROOM CULTIVATOR (Bharti ) was notified,we rinsed the patient back as the lines were starting to clot.The Bharti MUSHROOM CULTIVATOR contacted Deanne Fisher MUSHROOM CULTIVATOR who ordered heparin to run during treatment and Heparin dwells at the end of treatment. A fresh set up was done on the machine as the first one clotted and treatment was resumed and run smoothly to the end with no issues after that. documented in this encounter Plan of Treatment Upcoming Encounters Date Type Specialty Care Team Description 06/01/2022 Telemedicine Pharmacy An Nicholas APRN, C.N.P., Clement., M.S.N. [address] [place] [phone] (Nicolas rk) 07/31/2022 Lab Laboratory Medicine Tony Rubalcava M. B., ChBurke, MDebra [address] [place] [phone] (Nicolas wen) 07/31/2022 Lab Laboratory Medicine Tony Rubalcava M. B., Sydnie, Mukund [address] [place] [phone] (Nicolas wen) 07/31/2022 Office Visit Transplant Tony Rubalcava M.B., ChBurke, MDebra [address] [place] [phone] (Nicolas wen) 07/31/2022 Appointment Radiology Tony Rubalcava M.B., ChBurke, MDebra [address] [place] [phone] (Nicolas wen) 08/01/2022 Office Visit Transplant Tony Rubalcava M.B., ChBurke, MDaviDDavi [address] [place] [phone] (Nicolas wen) 08/01/2022 Clinical Support Transplant Tony Rubalcava M.B., Sydnie, MDebra [address] [place] [phone] (Nicolas wen) Scheduled Referrals Name Type Priority Associated Order Schedule Diagnoses Hemodialysis Outpatient Routine Chronic Failure Once for 1 Transient; Referral Renal End Stage Occurrences Renal Disease starting 04/15 Dialysis Dependent until (HCC) documented as of this encounter Visit Diagnoses Diagnosis Chronic Failure Renal End Stage Renal Di sease Dialysis Dependent (HCC) - Primary Complication Dialysis Fistula Subsequent documented in this encounter Administered Medications Inactive Administered Medications - up to 3 most recent administrations Medication Order MAR Action Action Date Dose Rate Site heparin (porcine) 1,000 Given 04/15/2019 12:57 PM CDT 2,000 Unit s unit/mL injection 2,000 Units 2,000 Units, intravenous, Once in dialysis, On Sun04/15/19 at 1400, For 1 dose, Bolus heparin (porcine) 1,000 unit/mL Given 04/15/2019 3:41 PM CDT 3,0 00 Units injection 3,000 Units 3,000 Units (3 mL), intra-catheter, Once, On Sun04/15/19 at 1400, For 1 dose, Dwell post dialysis heparin (porcine) 1,000 unit/mL Given 04/15/2019 3:42 PM CDT 3,0 00 Units injection 3,000 Units 3,000 Units (3 mL), intra-catheter, Once, On Sun04/15/19 at 1400, For 1 dose, Dwell in catheter post dialysis heparin (porcine) 1,000 New Bag 04/15/2019 12:58 PM 1,500 Units/hr 1.5 mL/hr unit/mL injection CDT 1,500 Units/hr (1.5 mL/hr), intravenous, Continuous, Starting on Sun04/15/19 at 1400, Turn off 1 hour before end of treatment NaCl 0.9 % bolus 1-1,000 mL New Bag 04/15/2019 3:43 PM CDT 10 mL 1-1,000 mL, intravenous, As needed, for dialysis including prime, rinse back, coating line worker, flush, or hypotension, Starting on Sun04/15/19 at 1222, For prime and rinse back: Prime to [...] 400 mL of 0.9% NaCL. New Bag 04/15/2019 3:42 PM CDT 10 mL New Bag 04/15/2019 3:41 PM CDT 270 mL documented in this encounter Additional Health Concerns Assessment Noted Time PHQ-9 Depression Total Score: 4 01/30/2019 12:13 PM CD T documented as of this encounter
--- OUTSIDE RECORDS SUMMARY | 2022-05-25 13:22 | XMS_ITS | Encounter Summary ---
:1960 Author Organization [facility] Address [address] [place] [address] Care Team Providers Name Role Phone Unavailable Primary Care Provider Unavailable Encounter Details Date Type Department Care Team Description 04/14/2019 Orders Only Division of Nephrology and Neymar Martínez Hypertension in [place], ., D.O. [place] [address] [facility] 200 [place] [phone] (Wo rk) Social History Tobacco Use Types [...] How often do you attend hoahaoism or congregational 1 to 4 times per [...] Nicholas APRN C.N.P., D.N.P., M.S.N. [address] [place] [phone] (Nicolas wen) 07/31/2022 Lab Laboratory Medicine Tony Rubalcava M. B., ChBurke, MElvia. [address] [place] [phone] (Nicolas wen) 07/31/2022 Lab Laboratory Medicine Tony Rubalcava M. B., ChBurke, MElvia. [address] [place] [phone] (Nicolas wen) 07/31/2022 Office Visit Transplant Tony Rubalcava M.B., ChDaviBDavi, MElvia. [address] [place] [phone] (Nicolas wen) 07/31/2022 Appointment Radiology Tony Rubalcava M.B., ChDaviBDavi, MDaviD. [address] [place] [phone] (Nicolas wen) 08/01/2022 Office Visit Transplant Tony Rubalcava M.B., Mukund [place] [address] [place], [place] [phone] (Wo behzad) 08/01/2022 Clinical Support Transplant Tony Rubalcava M.B., Mukund [place] [address] [place], [place] [phone] (Nicolas wen) documented as of this encounter Visit Diagnoses Not on filedocumented in this encounter Additional Health Concerns Assessment Noted Time PHQ-9 Depression Total Score: 4 01/30/2019 12:13 PM CD T documented as of this encounter
--- OUTSIDE RECORDS SUMMARY | 2022-05-25 13:22 | XMS_ITS | Encounter Summary ---
:1960 Author Organization [facility] Address [address] [place] [address] Care Team Providers Name Role Phone Unavailable Primary Care Provider Unavailable Encounter Details Date Type Department Care Team Description 05/02/2019 Orders Only Division of Nephrology Steve Martínez omplication Dialysis and Hypertension in C Moriah Garcia. Device Subsequent [place], [place] [address] [facility] (Primary Dx) [address] [place] [phone] Social History Tobacco Use Types Packs/Day Years [...] How often do you attend yazidi or islam 1 to 4 times per [...] An Nicholas APRN, C.NDaviP., D.N.P., M.S.N. [address] [place] [phone] (Nicolas wen) 07/31/2022 Lab Laboratory Medicine Tony Rubalcava M. B., ChBurke, MElvia. [address] [place] [phone] (Nicolas wen) 07/31/2022 Lab Laboratory Medicine Tony Rubalcava M. B., ChBurke, MElvia. [address] [place] [phone] (Nicolas wen) 07/31/2022 Office Visit Transplant Tony Rubalcava M.B., ChDaviBDavi, MDebra [address] [place] [phone] ( behzad) 07/31/2022 Appointment Radiology Tony Rubalcava M.B., ChBurke, MElvia. [address] [place] [phone] (Nicolas wen) 08/01/2022 Office Visit Transplant Tony Rubalcava M.B., Mukund [place] [address] [place], [place] [phone] (Wo rk) 08/01/2022 Clinical Support Transplant Tony Rubalcava M.B., Mukund [place] [address] [place], [place] [phone] (Wo rk) documented as [...] right anterior chest wall. A 14 .5 Cymraes x 23 cm Palindrome catheter was tunneled [...] right anterior chest wall. A 14 .5 Cymraes x 23 cm Palindrome catheter was tunneled [...] left IJV tunneled dial ysis catheter. EP Steve Martínez Jr., D.O. MALOU IR PROCEDURES documented in this encounter Visit Diagnoses Diagnosis Complication Dialysis Device Subsequent - Primary Complication Dialysis Device Subsequent documented in this encounter Additional Health Concerns Assessment Noted Time PHQ-9 Depression Total Score: 4 01/30/2019 12:13 PM CD T documented as of this encounter
--- OUTSIDE RECORDS SUMMARY | 2022-05-25 13:22 | XMS_ITS | Encounter Summary ---
:1960 Author Organization [facility] Address [address] [place] [address] Care Team Providers Name Role Phone Unavailable Primary Care Provider Unavailable Encounter Details Date Type Department Care Team Description 04/15/2019 Hospital Encounter Department of Dennys Fisher APRN, C.N.PDavi, M.S.N. [address] [place] [phone] Complication Dialysis Radiology in Julius Kent M.D. [address] [place] [phone] Catheter Initial [place], [place] [address] [place] [phone] Social History Tobacco Use Types Packs/Day Years [...] How often do you attend muslim or christian 1 to 4 times per [...] Sign Reading Time Taken Comments Blood Pressure 132/96 04/15/2019 11:25 AM CDT Pulse 64 04/15/2019 11:25 AM CDT Temperature - - Respiratory Rate 12 04/15/2019 11:25 AM CDT Oxygen Saturation 96% 04/15/2019 11:25 AM CDT Inhaled Oxygen Concentration - - Weight 98.7 kg (217 lb 11.2 oz) 04/15/2019 9:00 AM CDT Height - - Body Mass Index 37.03 02/06/2019 9:59 AM CDT documented in this [...] 1 tablet by 0 06/13/2017 05/31/20 19 46-pjqyk-Z-biot-zinc mouth daily. (DIALYVITE) [id number] mi-tq-fgs-mg tablet calcium carbonate Chew 2 tablets 2 [...] documented as of this encounter Procedure Notes Julius Kent M.D. - 04/15/2019 11:09 AM CDT PATIENT DISPOSITION Discharge to home. POST-PROCEDURE DIAGNOSIS Malpositioned dialysis catheter. Tip was in the azygos vein. PROCEDURE PERFORMED AND DESCRIPTION Tunneled dialysis catheter exchange. SVC venogram - no fibrin sheath. Catheter exchanged with tip in the upper right atrium. Ready for use. PROCEDURE DETAILS See Radiology Report SPECIMENS REMOVED None FINDINGS See above. PRIMARY PROCEDURALIST Julius Kent ([id number]) ASSISTANTS none COMPLICATIONS None. DRAINS None. IMPLANTS None. ANESTHESIA Moderate Sedation. FLUIDS 0 ESTIMATED BLOOD LOSS <5ml CURRENT MEDICATIONS No Medication Changes FOLLOW-UP LETTER None. MAY RETURN TO WORK Not applicable PATIENT INSTRUCTIONS No return appointment documented in this encounter Plan of Treatment Upcoming Encounters Date Type Specialty Care Team Description 06/01/2022 Telemedicine Pharmacy An Nicholas APRN, C.N.P., D.N.P., M.S.N. [address] [place] [phone] (Nicolas wen) 07/31/2022 Lab Laboratory Medicine Tony Rubalcava M. B., Sydnie, MDebra [address] [place] [phone] ( behzad) 07/31/2022 Lab Laboratory Medicine Tony Rubalcava M. B., Sydnie, MDebra [address] [place] [phone] ( behzad) 07/31/2022 Office Visit Transplant Tony Rubalcava M.B., Sydnie, MDebra [address] [place] [phone] ( behzad) 07/31/2022 Appointment Radiology Tony Rubalcava M.B., ChBurke, MDebra [address] [place] [address] [phone] ( behzad) 08/01/2022 Office Visit Transplant Tony Rubalcava M.B., Sydnie, MDebra [address] [place] [address] [phone] (Nicolas wen) 08/01/2022 Clinical Support Transplant GiniTony M.B., Mukund Otoole [address] [place], [place] [phone] (Wo rk) documented as of this encounter Procedures Procedure Name Priority Date/Time Associated Comments Diagnosis IR DIALYSIS / RAD - Routine 04/15/2019 11:03 Complication Results f or this HIGH FLOW (most inpatients AM CDT Dialysis Catheter proced ure are in CATHETER EXCHANGE and all Initial the result s outpatients) section. documented in [...] 2 stiff-angled Glidewires for a new 14.5 Mexican x [address] Final [...] 2 stiff-angled Glidewires for a new 14.5 Mexican x [address] Final [...] Visit Diagnoses Diagnosis Complication Dialysis Catheter Initial documented in this encounter Administered Medications Inactive Administered Medications - up to 3 most recent administrations Medication Order MAR Action Action Date Dose Rate Site ceFAZolin injection 2,000 mg Given 04/15/2019 9:24 AM CDT 2,000 mg (ANCEF) 2,000 mg (rounded from 2,525 mg = 25 mg/kg ? 101 kg), intravenous, Once, On Sun04/15/19 at 0915, For 1 dose, Intraprocedure (RAD), Preoperatively within one hour of incision. Adminster IV push over 3 minutes. Add 5 mL NS to 1 gram vial for a final concentration of 200 mg/mL., Indications: Prophylaxis, surgical fentaNYL injection 25 mcg (SUBLIMAZE) Given 04/15/2019 10:45 AM CDT 25 mcg 25 mcg, intravenous, Every 2 min PRN, sedation, or pain before and during sedation procedure, Starting on Sun04/15/19 at 0900, Intraprocedure (RAD), Administer over 1 minute immediately prior to the procedure. May repeat every 2 minutes to a maximum of 200 mcg, until pain score of 3 or less, or until the patient meets the pain comfort goal. Do not give if respiratory rate is less than 8 breaths/minute Given 04/15/2019 10:34 AM CDT 25 mcg Given 04/15/2019 10:29 AM CDT 25 mcg flumazenil injection 0.2 mg (ROMAZICON) 0.2 mg, intravenous, Once as needed, rev ersal, Starting on Sun04/15/19 at 0900, For 1 dose, Intraprocedure (RAD), Administer once if patient has a RASS score of -4, -5 and has a respiratory rate less than 8 breaths/minute. iohexol 300 mg iodine/mL solution (OMNIP AQUE) Given 04/15/2019 10:56 AM CDT 10 mL Code/trauma/sedation medication, Starting on Sun04/15/19 at 1056 lidocaine-sodium bicarbonate 1%-8.4% inj ection Given 04/15/2019 10:56 AM CDT 3 mL infiltration, Code/trauma/sedation medication, Starting on Sun04/15/19 at 1056 midazolam (PF) injection 0.5 mg (VERSED) 0.5 mg, intravenous, Once as needed, sed ation, Starting on Sun04/15/19 at 0900, For 1 dose, Intraprocedure (RAD) midazolam (PF) injection 0.5 mg (VERSED) Given 04/15/2019 10:45 AM CDT 0.5 mg 0.5 mg, intravenous, Every 2 min PRN, sedation, Starting on Sun04/15/19 at 0900, Intraprocedure (RAD), If RASS greater than -3, give additional dose(s) of 0.5 mg IV every 2 minutes for a maximum of 5 mg. Do not give if respiratory rate is less than 8 breaths/minute. Given 04/15/2019 10:34 AM CDT 0.5 mg Given 04/15/2019 10:29 AM CDT 0.5 mg NaCl 0.9% infusion 20 mL/hr, intravenous, Once as needed, t o keep vein open, Starting on Sun04/15/19 at 0900, For 1 dose, Intraprocedure (RAD) naloxone injection 0.2 mg (NARCAN) 0.2 mg, intravenous, Once as needed, respiratory depre ssion, Starting on Sun04/15/19 at 0900, For 1 dose, Intraproced ure (RAD), Administer once if patient has a RASS score of -4, -5 and has a respiratory rate less t simpson 8 breaths/minute. sodium citrate injection Given 04/15/2019 10:54 AM CDT 6 mL Code/trauma/sedation medication, Starting on Sun04/15/19 at 1054 documented in this encounter Active and Recently Administered Medications Times are shown in CDT. Scheduled Medication Order 04/13/2019 04/14/2019 04/15/2019 ceFAZolin injection 2,000 mg (ANCEF) (COMPLETED) 923 (Given - Provider: Noelle Guadalupe R.N.) 2,000 mg (rounded from 2,525 mg = 25 mg/ kg ? 101 kg), intravenous, Once, On Sun04/15/19 at 0915, For 1 dose, Intraprocedure (RAD), Preoperatively within one hour of incision. Adminster IV push over 3 m inutes. Add 5 mL NS to 1 gram vial for a final concentration of 200 mg/mL., Indications: Prophylaxis, surgical PRN Medication Order 04/13/2019 04/14/2019 04/15/2019 fentaNYL injection 25 mcg (SUBLIMAZE) 1026 (Given - Provider: Noelle Guadalupe R.N.)1029 (Given - Provider: Noelle Guadalupe R.N.)1034 (Given - Provider: Noelle Guadalupe R.N.)1045 (Given - Provider: Noelle Guadalupe R.N.) 25 mcg, intravenous, Every 2 min PRN, se dation, or pain before and during sedation procedure, Starting on Sun04/15/19 at 0900, Intraprocedure (RAD), Administer over 1 minute immediately [...] Once as needed, rev ersal, Starting on Sun04/15/19 at 0900, For 1 dose, Intraprocedure (RAD), Administer once if patient has a RASS score of -4, -5 and has a respiratory rate less than 8 breaths/minute. iohexol 300 mg iodine/mL solution (OMNIPAQUE) (COMPLETED) 1056 (Given - Provider: Julius Kent M.D.) Code/trauma/sedation medication, Starting on Sun04/15/19 at 1056 lidocaine-sodium bicarbonate 1%-8.4% injection (COMPLETED) 1056 (Given - Provider: Julius Kent M.D.) infiltration, Code/trauma/sedation medication, Starting on T 04/15/19 at 1056 midazolam (PF) injection 0.5 mg (VERSED) 0.5 mg, intravenous, Once as needed, sed ation, Starting on Sun04/15/19 at 0900, For 1 dose, Intraprocedure (RAD) midazolam (PF) injection 0.5 mg (VERSED) 1026 (Given - Provider: Noelle Guadalupe R.N.)1029 (Given - Provider: Ann CamposN.)1034 (Given - Provider: Ann CamposN.)1045 (Given - Provider: Noelle Guadalupe R.N.) 0.5 mg, intravenous, Every 2 min PRN, se dation, Starting on Sun04/15/19 at 0900, Intraprocedure (RAD), If RASS greater than -3, give additional dose(s) of 0.5 mg IV every 2 minutes for a maximum of 5 mg . Do not give if respiratory rate is less than 8 breaths/minute. NaCl 0.9% infusion 20 mL/hr, intravenous, Once as needed, t o keep vein open, Starting on Sun04/15/19 at 0900, For 1 dose, Intraprocedure (RAD) naloxone injection 0.2 mg (NARCAN) 0.2 mg, intravenous, Once as needed, res piratory depression, Starting on Sun04/15/19 at 0900, For 1 dose, Intraprocedure (RAD), Administer once if patient has a RASS score of -4, -5 and has a respiratory rate less than 8 breaths/minute. sodium citrate injection (COMPLETED) 1054 (Given - Provider: Noelle Guadalupe R.N.) Code/trauma/sedation medication, Starting on Sun04/15/19 at 1054 documented in this encounter Additional Health Concerns Assessment Noted Time PHQ-9 Depression Total Score: 4 01/30/2019 12:13 PM CD T documented as of this encounter
--- OUTSIDE RECORDS SUMMARY | 2022-05-25 13:22 | XMS_ITS | Encounter Summary ---
:1960 Author Organization [facility] Address [address] [place] [address] Care Team Providers Name Role Phone Unavailable Primary Care Provider Unavailable Encounter Details Date Type Department Care Team Description 04/10/2019 Documentation Division of Nephrology and Clara Clarke R.N. Hypertension in [place], [facility] 1 [place], [place] [address] [facility] [id number] [place] [address] [phone] Social History Tobacco Use Types Packs/Day Years [...] How often do you attend jain or restorationism 1 to 4 times per [...] documented as of this encounter Progress Notes Clara Clarke R.N. - 04/10/2019 9:18 AM CDT REFERRAL Deanne Fisher APRN 9-1930 CHIEF COMPLAINT/PURPOSE OF VISIT REASON FOR REFERRAL: Needs permanent access for hemodialysis HISTORY OF PRESENT ILLNESS ACCESS: [place]aimute AV Fistula Date placed - 01/09/17 Provider - Dr.Patrick Vanegas ?? LOCATION OF ACCESS: Left Brachial basilic fistula - clotted 03/31/19 ACCESS: Palindrome Catheter Date placed - 03/31/19 Provider - Dr. Kingsley LOCATION OF ACCESS: Left internal jugular PERTINENT PROCEDURAL HISTORY: 58 y.o., female, referred by Deanne Fisher APRN for evaluation for permanent vascular access for dialysis. Her kidney disease is related to hypertension. She had a renal transplant in 2007 at the [facility]. Her left brachial basilic, that clotted on 03/31/19 had required 4 fistulograms and 5 declots with the last one ending up with a tunneled catheter placement.She dialyzes at the [place] dialysis unit on a Sunday, Sunday and Sunday schedule. Past history of vascular accesses: Right brachial cephalic 2007 Left brachial basilic - 01/09/17 - Dr. Vanegas Several dialysis catheters on both sides PACEMAKER: No DIABETES: No ANTICOAGULATION: Takes no anticoagulation medications. LABORATORY RESULTS: Please see EPIC for current Labs from 04/04/19. ELECTROCARDIOGRAM: 02/11/19 CHEST X-RAY: 01/28/19 VEIN MAPPIN04/10/19 ECHOCARDIOGRAM: 01/28/19 ALLERGIES/ADVERSE REACTIONS Allergies Allergen Reactions ??? Epoetin Rolando GI intolerance ERYTHROPOIETIN- vomiting ??? Latex Other (see comments) Eczema IMPRESSION/REPORT/PLAN Surgeon: Patient seen by Dr. Brown Plan: Right brachial basilic Stage 1 Surgery: Is scheduled for 05/08/19. Surgery is planned to be done under local sedation and MAC. Checklist: the Checklist for Surgical Patients ([id number]) was given to the patient with the following instructions: Report to [facility] admissions at the time told to you when you call in the night before. Report fasting after midnight, no am breakfast, but take your am meds with water. Insulin Directions: N/A Anticoagulation medications directions: N/A HOWIE: Discussed with Deanne Fisher CNP and she has cleared her for surgery in her note dated 04/01/19. INFORMED CONSENT Patient signed the consent form. documented in this encounter Plan of Treatment Upcoming Encounters Date Type Specialty Care Team Description 06/01/2022 Telemedicine Pharmacy An Nicholas APRN, C.N.P., D.N.P., M.S.N. [address] [place] [address] 55 [phone] (Nicolas wen) 07/31/2022 Lab Laboratory Medicine Tony Rubalcava M. B., ChDaviBDavi, M.DDaiv [address] [place] [address] 55 [phone] (Nicolas wen) 07/31/2022 Lab Laboratory Medicine Tony Rubalcava M. B., ChDaviBDavi, M.D. [address] [place] [address] 55 [phone] (Nicolas wen) 07/31/2022 Office Visit Transplant Tony Rubalcava M.B., ChBurke, MElvia. [address] [place] [address] [phone] (Nicolas wen) 07/31/2022 Appointment Radiology Tony Rubalcava M.B., Mukund Otoole [address] [place] [address] [phone] (Wo rk) 08/01/2022 Office Visit Transplant Tony Rubalcava M.B., Mukund Otoole [address] [place] [address] [phone] (Wo behzad) 08/01/2022 Clinical Support Transplant Tony Rubalcava M.B., Sydnie, Mukund [address] [place] [address] [phone] (Wo behzad) documented as of this encounter Visit Diagnoses Not on filedocumented in this encounter Additional Health Concerns Assessment Noted Time PHQ-9 Depression Total Score: 4 01/30/2019 12:13 PM CD T documented as of this encounter
--- OUTSIDE RECORDS SUMMARY | 2022-05-25 13:22 | XMS_ITS | Encounter Summary ---
:1960 Author Organization [facility] Address [address] [place] [address] Care Team Providers Name Role Phone Unavailable Primary Care Provider Unavailable Encounter Details Date Type Department Care Team Description 04/14/2019 Documentation Division of Nephrology and Josr Martínez Hypertension in [place], ., D.O. [place] 200 [facility] 200 [place] [id number] [phone] (Wo rk) Social History Tobacco Use Types [...] How often do you attend restorationism or sikh 1 to 4 times per [...] Progress Notes Steve Martínez Jr., D.O. - 04/14/2019 9:34 AM CDT Please see Sofiya Note from today. This is available in Care Everywhere. Her situation has been quite complex recently. Her L UE AVF began having issues with stenosis and clotting 6-8 months ago with accellerating episodes. A covered stent graft [facility] which was complicated by bleeding. Her access required resting over January when she was treated with a R IJ TDC for 3 weeks. Upon return back to OR in February, the L AVF access Was utilized briefly with many complications of clotting. She clotted the LUE access irreversibly 2 weeks ago and we have been using a L IJ TDC, as thrombus was noted in the R IJ. Her Course with this current cath has been very difficult as well. Despite intra treatment heparin, TPA and heparin loads we have been unable to maintain cath patency. A thrombophilia eval was wnl. Her treatments have been complicated by widely variable BPs as well, and dyspnea on initiation of RXwhich requires Oxygen. She is not overloaded and has been reaching her edw. An Echo demonstrates normal filling volumes. There have been episodes of air in the catheter, which are unexplained, and the dialysis team is very concerned about a potential cracked hub. (see her initial recent poor tolerance of HD) Her run today was complicated by poor flows and multiple alarms, the cath needed to run reversed, and required flushing multiple times. We are considering beginning low dose warfarin, although the 2002 trial did not demonstrate benefit,the anecdotal and case series support this. I will ask for a 2 hr run tomorrow after her cath replacement. I hope we may be simon to us the R IJ. PD options are being re-evaluated, however she had several episodes of peritonitis requiring her to abandon this modality prior to her first transplant. I will start her on 2 mg Warfarin daily on Monday 04/16 documented in this encounter Plan of Treatment Upcoming Encounters Date Type Specialty Care Team Description 06/01/2022 Telemedicine Pharmacy An Nicholas APRN C.N.P., D.N.P., M.S.N. [address] [place] [address] 55 [phone] (Wo rk) 07/31/2022 Lab Laboratory Medicine Tony Rubalcava M. B., Sydnie, MDebra [address] [place] [address] [phone] (Wo rk) 07/31/2022 Lab Laboratory Medicine Tony Rubalcava M. B., Sydnie, Mukund [address] [place] [address] 55 [phone] (Wo rk) 07/31/2022 Office Visit Transplant Tony Rubalcava M.B., Sydnie, MDebra [address] [place] [address] [phone] (Wo rk) 07/31/2022 Appointment Radiology Tony Rubalcava M.B., Sydnie, Mukund [address] [place] [address] 55 [phone] (Wo rk) 08/01/2022 Office Visit Transplant Tony Rubalcava M.B., Sydnie, MDebra [address] [place] [address] [phone] (Wo rk) 08/01/2022 Clinical Support Transplant Tony Rubalcava M.B., Sydnie, Shashi. [address] [place] [address] 55 [phone] (Wo rk) documented as of this encounter Visit Diagnoses Not on filedocumented in this encounter Additional Health Concerns Assessment Noted Time PHQ-9 Depression Total Score: 4 01/30/2019 12:13 PM CD T documented as of this encounter
--- OUTSIDE RECORDS SUMMARY | 2022-05-25 13:22 | XMS_ITS | Encounter Summary ---
:1960 Author Organization [facility] Address [address] [place] [address] Care Team Providers Name Role Phone Unavailable Primary Care Provider Unavailable Encounter Details Date Type Department Care Team Description 04/11/2019 Hospital Encounter Department of [place], Silvana llanes And Chronic Kidney Disease Stage 1 To 4; Cardiovascular Steve Yap Jr., Chronic Kidn ey Disease Stage 5 Glomerular Filtration Rate Less Than 15 (HCC); Diseases in [place], D.O. Chronic Kidney Disease Stage 4 Glomerula r Filtration Rate 15-29 (HCC); [place] [address] [facility] Dyspnea [address] [place] [phone] Social History Tobacco Use Types Packs/Day Years [...] How often do you attend amish or taoism 1 to 4 times per [...] 1 tablet by 0 06/13/2017 05/31/20 19 [id number]-[id number]-zinc mouth daily. (DIALYVITE) [id number] ss-tg-bcn-mg tablet calcium carbonate Chew 2 tablets 2 [...] Nicholas APRN, C.N.P., D.N.P., M.S.N. [address] [place] [address] 55 [phone] (Nicolas wen) 07/31/2022 Lab Laboratory Medicine Tony Rubalcava M. B., Ch.B., M.D. [address] [place] [address] 55 [phone] (Nicolas wen) 07/31/2022 Lab Laboratory Medicine Tony Rubalcava M. B., Ch.B., M.D. [address] [place] [address] 55 [phone] (Nicolas wen) 07/31/2022 Office Visit Transplant Tony Rubalcava M.B., Ch.B., M.D. [address] [place] [address] [phone] (Nicolas wen) 07/31/2022 Appointment Radiology Tony Rubalcava M.B., Mukund Otoole [address] [place], [place] 55 [phone] (Wo rk) 08/01/2022 Office Visit Transplant Tony Rubalcava M.B., Mukund Otoole [address] [place], [place] 55 [phone] (Nicolas wen) 08/01/2022 Clinical Support Transplant Tony Rubalcava M.B., Mukund Otoole [address] [place], [place] 55 [phone] (Nicolas wen) documented as of this encounter Procedures Procedure Name Priority Date/Time Associated Diagnosis Comme nts (TTE) 2D ECHO Routine 04/11/2019 1:29 PM Hypertension And Resu lts for this DOPPLER COLOR CDT Chronic Kidney procedure ar e in Disease Stage 1 To 4 the results Chronic Kidney section. Disease Stage 5 Glomerular Filtration Rate Less Than 15 (HCC) Chronic Kidney Disease Stage 4 Glomerular Filtration Rate 15-29 (HCC) Dyspnea documented in this encounter Results (TTE) 2D ECHO DOPPLER COLOR (04/11/2019 1:29 PM CDT) [facility] Method Time Signature Ejection Fraction 66 MC CV EIMS Mid-Ascending Aorta 39 MC CV EIMS LV Mass Index 88 MC CV EIMS LV End-Diastolic 50 MC CV EIMS Diameter LV End-Systolic 31 MC CV EIMS Diameter LV End-Diastolic 114 MC CV EIMS Volume LV End-Systolic 39 MC CV EIMS Volume MV E Velocity 0.4 MC CV EIMS MV A Velocity 0.5 MC CV EIMS MV E/A 0.80 MC CV EIMS MV e' Velocity 0.06 MC CV EIMS Medial MV e' Velocity 0.07 MC CV EIMS Lateral MV E/e' Medial 6.7 MC CV EIMS MV E/e' Lateral 5.7 MC CV EIMS Left ventricular 42 MC CV EIMS stroke volume index Cardiac Output 5.92 MC CV EIMS Cardiac Index 2.86 MC CV EIMS LV Interventricular 10 MC CV EIMS Septal Wall Thickness LV Posterior Wall 10 MC CV EIMS Thickness LV Relative Wall 40 MC CV EIMS Thickness Tricuspid Annular S? 0.15 MC CV EIMS TR Vmax 2.38 MC CV EIMS RA Pressure 5 MC CV EIMS RV Systolic Pressure 28 MC CV EIM S AV mean gradient 6 MC CV EIMS Aortic valve area 3.05 MC CV EIMS Aortic Valve 0.80 MC CV EIMS Dimensionless Index LA Volume Index 29 MC CV EIMS Anatomical Region Laterality Modality Echocardiography Specimen (Source) Anatomical Collection Method Collection Time Re ceived Time Location / / Volume Laterality 04/11/2019 12:24 PM CDT Impressions 04/11/2019 2:04 PM CDT LEFT VENTRICLE: ??Normal left ventricular chamber size. ??Normal left ventricular wall thickness. Calculated 2-D biplane volumetric left ventricular ejection fraction 66 %. ??No regional wall motion abnormalities. ??Grade 1/4 left v entricular diastolic dysfunction, consistent with low to normal left ventricular filling pressure . ??RIGHT VENTRICLE: ??Normal right ventricular size. Normal right ventricular systolic functi on. ??Estimated right ventricular systolic pressure 28 mmHg (systolic blood pressure 145 mmHg). ??ATRIA: ??Normal left atrial size. ??Left atrial volume index 29 ml/m^2. ??Normal right atrial s ize. ??CARDIAC VALVES: ??Trileaflet aortic valve. Sclerotic aortic valve. ??No aortic valv e regurgitation. ??Normal mitral valve. ??Trivial mitral valve regurgitation. ??Normal pulmonary valve. ??Normal pulmonary valve systolic velocity. Trivial pulmonary valve regurgitation. ? ?Normal tricuspid valve. ??Trivial tricuspid valve regurgitation. ??OTHER ECHO FINDINGS: ?? Normal inferior vena cava size with normal inspiratory collapse (>50%). ??Borderline ascending aorta dilatation (diameter 39 mm at mid level). Abdominal aorta incompletely visualized. ??Normal abdominal aorta Doppler flow pattern. Lipomatous atrial septum. ??No atrial le braxton shunt by color flow imaging. ??No intracardiac mass or thrombus, but the left atrial appenda ge cannot be visualized adequately with transthoracic echo to exclude thrombus in this locatio n. ??No pericardial effusion. For the complete report, see the [facility] [employer] Documents below. See PDF For Result Narrative 04/11/2019 2:04 PM CDT For the complete report, see the Order[facility] Documents below. Final Impressions 1. No intracardiac mass or thrombus, but the left atrial appendage cannot be visualized adequately with transthoracic echo to ex clude thrombus in this location. 2. Normal left ventricular chamber size, calculated ejection fraction 66%. ??No regional wall motion abnormalities. 3. Grade 1/4 left ventricular diastolic dysfunction, consistent with low to normal left ventricular filling pressure. 4. Normal right ventricular size and sys tolic function. ??Estimated right ventricular systolic pressure 28 mmHg. 5. Sclerotic aortic valve without regurg itation. 6. Borderline ascending aorta dilatation (diameter 39 mm at mid level). ??Upper limit of normal for age, gender, and BSA 39 mm. 7. Normal inferior vena cava size with n ormal inspiratory collapse (>50%). ??No pericardial effusion. 8. Estimated right ventricular systolic pressure 28 mmHg (systolic blood pressure 145 mmHg). Comments Superior vena cava velocity is slightly increased in its velocity and duration. SHENA or CT may be helpful in visualizing the SVC in a g reater detail. Procedure Note Bandar Green M.D. - 04/11/2019Formatting o f this note might be different from the original. For the complete report, see the Order[facility] Documents below. Final Impressions 1. No intracardiac mass or thrombus, but the left atrial appendage cannot be visualized adequately with transthoracic echo to ex clude thrombus in this location. 2. Normal left ventricular chamber size, calculated ejection fraction 66%. No regional wall motion abnormalities. 3. Grade 1/4 left ventricular diastolic dysfunction, consistent with low to normal left ventricular filling pressure. 4. Normal right ventricular size and sys tolic function. Estimated right ventricular systolic pressure 28 mmHg. 5. Sclerotic aortic valve without regurg itation. 6. Borderline ascending aorta dilatation (diameter 39 mm at mid level). Upper limit of normal for age, gender, and BSA 39 mm. 7. Normal inferior vena cava size with n ormal inspiratory collapse (>50%). No pericardial effusion. 8. Estimated right ventricular systolic pressure 28 mmHg (systolic blood pressure 145 mmHg). Comments Superior vena cava velocity is slightly increased in its velocity and duration. SHENA or CT may be helpful in visualizing the SVC in a g reater detail. Findings LEFT VENTRICLE: Normal left ventricular chamber size. Normal left ventricular wall thickness. Calculated 2-D biplane volumetric left ventricular ejection fraction 66 %. No regional wall motion abnormalities. Grade 1/4 left maeve tricular diastolic dysfunction, consistent with low to normal left ventricular filling pressure . RIGHT VENTRICLE: Normal right ventricular size. Normal right ventricular systolic functi on. Estimated right ventricular systolic pressure 28 mmHg (systolic blood pressure 145 mmHg). ATRIA: Normal left atrial size. Left atrial volume index 29 ml/m^2. Normal right atrial siz e. CARDIAC VALVES: Trileaflet aortic valve. Sclerotic aortic valve. No aortic valve regurgitation. Normal mitral valve. Trivial mitral valve regurgitation. Normal pulmonary va lve. Normal pulmonary valve systolic velocity. Trivial pulmonary valve regurgitation. N ormal tricuspid valve. Trivial tricuspid valve regurgitation. OTHER ECHO FINDINGS: Norm al inferior vena cava size with normal inspiratory collapse (>50%). Borderline ascending ao rta dilatation (diameter 39 mm at mid level). Abdominal aorta incompletely visualized. Normal abdominal aorta Doppler flow pattern. Lipomatous atrial septum. No atrial leve l shunt by color flow imaging. No intracardiac mass or thrombus, but the left atrial appenda ge cannot be visualized adequately with transthoracic echo to exclude thrombus in this locatio n. No pericardial effusion. For the complete report, see the Order[facility] evel Documents below. See PDF For Result Steve Martínez Jr., D.O. CV ECHO PROCEDURES documented in this encounter Visit Diagnoses Diagnosis Hypertension And Chronic Kidney Disease Stage 1 To 4 Chronic Kidney Disease Stage 5 Glomerula r Filtration Rate Less Than 15 (HCC) Chronic Kidney Disease Stage 4 Glomerula r Filtration Rate 15-29 (HCC) Dyspnea documented in this encounter Additional Health Concerns Assessment Noted Time PHQ-9 Depression Total Score: 4 01/30/2019 12:13 PM CD T documented as of this encounter
--- OUTSIDE RECORDS SUMMARY | 2022-05-25 13:22 | XMS_ITS | Encounter Summary ---
:1960 Author Organization [facility] Address [address] [place] [address] Care Team Providers Name Role Phone Unavailable Primary Care Provider Unavailable Encounter Details Date Type Department Care Team Description 04/25/2019 Orders Only Division of Nephrology Steve Martínez Kidney Disease Stage 5 Glomerular Filtration Rate Less Than 15 (HCC) (Primary Dx); and Hypertension in [place] Garcia D.O. Complication Dialysis Fistula Subsequent ; [place], [place] [address] [facility] Complication Dialysis Device Subsequent; [address] [place], [place] Anticoagulant [place] [address] [phone] Social History Tobacco Use Types Packs/Day Years [...] How often do you attend yarsani or methodist 1 to 4 times per year 12/23/2021 [...] An Nicholas APRN C.N.P., D.N.P., M.S.N. [address] [place] [address] [phone] (Wo rk) 07/31/2022 Lab Laboratory Medicine Tony Rubalcava M. B., Sydnie, MDebra [address] [place] [address] [phone] (Wo rk) 07/31/2022 Lab Laboratory Medicine Tony Rubalcava M. B., ChBurke, MDebra [address] [place] [address] [phone] (Wo rk) 07/31/2022 Office Visit Transplant Tony Rubalcava M.B., Sydnie, MDebra [address] [place] [address] [phone] (Wo rk) 07/31/2022 Appointment Radiology Tony Rubalcava M.B., Sydnie, MDebra [address] [place] [address] [phone] (Wo rk) 08/01/2022 Office Visit Transplant Tony Rubalcava M.B., Mukund Otoole [address] [place], [place] 55 [phone] (Wo rk) 08/01/2022 Clinical Support Transplant Tony Rubalcava M.B., Mukund Otoole [address] [place], [place] 55 [phone] (Wo rk) documented as of this encounter Results IR Dialysis / High Flow Catheter Placement (04/25/2019 1:30 PM CDT) Anatomical Region Laterality Modality Body, Vascular Interventional RST LOS, Vascular N/A X-Ray Angiography Interventional ARZ LOS, Vascular Interventional FLA LOS Specimen (Source) Anatomical Collection Method Collection Time Re ceived Time Location / / Volume Laterality 04/25/2019 1:59 PM CDT Impressions 04/25/2019 3:36 PM CDT Exchange of tunneled left IJ dialysis catheter with tip in the right atrium. Ready for use. NR Narrative 04/25/2019 3:36 PM CDT EXAM: IR DIALYSIS / HIGH FLOW CATHETER PLACEMENT CLINICAL HISTORY: Poor dialysis catheter flow. TECHNIQUE: The left neck/chest and tunne led dialysis catheter were prepped and draped in routine sterile fashion. 1 per cent lidocaine was used for local anesthetic. Initial bar supervisor image showed t he tip of the tunneled dialysis catheter in the SVC. Stiff angled Glidewire were advanced through each lumen of the tunneled dialysis catheter into the IVC. The catheter was removed and a 9 [place]er by 23 cm Brite tip sheath was placed ove r one of the wires. Venogram was performed which showed patent SVC and le ft brachiocephalic vein. Angioplasty using 9 mm balloon was performed to disr upt any possible fibrin sheath within the SVC and left brachiocephalic vein. A new 28 cm Palindrome catheter was advanced with the tip in the right atriu m. Both lumens flushed and aspirated well and were locked with 4 percent sodi um citrate. Catheter was secured to the skin with 2-0 Prolene. No immediate comp lication. For placement of this central venous acc [...] procedure. The total intra-procedural sedation time was: 19 m inutes. Procedure Note Jatin Mcconnell M.D. - 04/25/2019Fo rmatting of this note might be different from the original. EXAM: IR DIALYSIS / HIGH FLOW CATHETER P LACEMENT CLINICAL HISTORY: Poor dialysis catheter flow. TECHNIQUE: The left neck/chest and tunne led dialysis catheter were prepped and draped in routine sterile fashion. 1 per cent lidocaine was used for local anesthetic. Initial bar supervisor image showed t he tip of the tunneled dialysis catheter in the SVC. Stiff angled Glidewire were advanced through each lumen of the tunneled dialysis catheter into the IVC. The catheter was removed and a 9 [place]er by 23 cm Brite tip sheath was placed ove r one of the wires. Venogram was performed which showed patent SVC and le ft brachiocephalic vein. Angioplasty using 9 mm balloon was performed to disr upt any possible fibrin sheath within the SVC and left brachiocephalic vein. A new 28 cm Palindrome catheter was advanced with the tip in the right atriu m. Both lumens flushed and aspirated well and were locked with 4 percent sodi um citrate. Catheter was secured to the skin with 2-0 Prolene. No immediate comp lication. For placement of this central venous acc [...] procedure. The total intra-procedural sedation time was: 19 m inutes. IMPRESSION: Exchange of tunneled left IJ dialysis ca theter with tip in the right atrium. Ready for use. NR Steve Martínez Jr., D.ODavi IMEdinson IR PROCEDURES (ABNORMAL) Prothrombin Time (PT/INR) (04/25/2019 9:21 AM CDT) [facility] Method Time Signature Prothrombin 14.0 (H) 9.4 - 12.5 04/25/2019 Time, P sec 10:05 AM CDT INR 1.3 0.9 - 1.1 04/25/2019 10:05 AM CDT Comment: ----ADDITIONAL INFORMATION---- Standard intensity warfarin therapeutic range: 2.0 to 3.0 ?? High intensity warfarin therapeutic rang e: 2.5 to 3.5 Specimen Anatomical Collection Method Collection Time Receive d Time (Source) Location / / Volume Laterality Blood (Blood, 04/25/2019 9:21 AM 04/25/20 19 9:44 Venous) CDT AM CDT Steve Martínez Jr., D.O. LAB BLOOD ADD-ON Performing Organization Address City/State/ZIP Code Phon e Number [facility] - [address] [place] [id number] [address] [facility] documented in this encounter Visit Diagnoses Diagnosis Chronic Kidney Disease Stage 5 Glomerula r Filtration Rate Less Than 15 (HCC) - Primary Complication Dialysis Fistula Subsequent Complication Dialysis Device Subsequent Anticoagulant Therapy Chronic Kidney Disease Stage 5 Glomerula r Filtration Rate Less Than 15 (HCC) Complication Dialysis Device Subsequent Anticoagulant Therapy documented in this encounter Additional Health Concerns Assessment Noted Time PHQ-9 Depression Total Score: 4 01/30/2019 12:13 PM CD T documented as of this encounter
--- OUTSIDE RECORDS SUMMARY | 2022-05-25 13:22 | XMS_ITS | Encounter Summary ---
:1960 Author Organization [facility] Address [address] [place] [id number] Care Team Providers Name Role Phone Unavailable Primary Care Provider Unavailable Encounter Details Date Type Department Care Team Description 04/25/2019 Documentation Division of Nephrology [facility] [address] [place] [address] [place] [phone] [place] [phone] Social History Tobacco Use Types Packs/Day Years [...] How often do you attend zoroastrianism or baptism 1 to 4 times per [...] encounter Nursing Notes Elo Trevizo R.N. - 04/25/2019 8:[address] Martínez ?? CHIEF COMPLAINT/PURPOSE OF VISIT REASON FOR REFERRAL: Tunneled dialysis catheter exchange due inability to dialyze. HISTORY OF PRESENT ILLNESS ACCESS: Palindrome Catheter Date placed - 04/15/19 Provider - Dr. Kent ?? LOCATION OF ACCESS: Left internal jugular ?? PERTINENT PROCEDURAL HISTORY: Patient referred by Dr. Martínez for tunneled dialysis catheter exchange. She is being referred due to not being able to dialyze this morning. She dialyzes at the [facility] dialysis unit on a Sunday, Sunday and Sunday schedule. ?? Please read Dr. Martínez's note dated 04/25/19 for specifics about her medications and when she ate. ? IMPRESSION/REPORT/PLAN SPECIFIC PATIENT INSTRUCTIONS: Patient instructed to report to the [facility] [address], today, 04/25/19 at 11:00 am. ?? Appointment scheduled at Interventional Radiology. Per Dr. Martínez's note, she will dialyze tomorrow at her home unit. documented in this encounter Plan of Treatment Upcoming Encounters Date Type Specialty Care Team Description 06/01/2022 Telemedicine Pharmacy An Nicholas APRN, C.N.P., D.N.P., M.S.N. [address] [place] [phone] (Wo rk) 07/31/2022 Lab Laboratory Medicine Tony Rubalcava M. B., ChBurke, MDebra [address] [place] [phone] (Wo rk) 07/31/2022 Lab Laboratory Medicine Tony Rubalcava M. B., ChBurke, MDebra [address] [place] [phone] (Wo rk) 07/31/2022 Office Visit Transplant Tony Rubalcava M.B., Sydnie, MDebra [address] [place] [phone] (Wo rk) 07/31/2022 Appointment Radiology Tony Rubalcava M.B., Sydnie, MDebra [address] [place] [address] [phone] (Wo rk) 08/01/2022 Office Visit Transplant Tony Rubalcava M.B., ChBurke, MDaviD. [address] [place] [phone] (Wo rk) 08/01/2022 Clinical Support Transplant Tony Rubalcava M.B., Sydnie, M.D. [address] [place] [phone] (Wo rk) documented as of this encounter Visit Diagnoses Not on filedocumented in this encounter Additional Health Concerns Assessment Noted Time PHQ-9 Depression Total Score: 4 01/30/2019 12:13 PM CD T documented as of this encounter
--- OUTSIDE RECORDS SUMMARY | 2022-05-25 13:22 | XMS_ITS | Encounter Summary ---
:1960 Author Organization [facility] Address [address] [place] [address] Care Team Providers Name Role Phone Unavailable Primary Care Provider Unavailable Encounter Details Date Type Department Care Team Description 04/25/2019 Hospital Encounter Department of Tanya, Chronic Kidney Disease Stage 5 Glomerular Filtration Rate Less Than 15 (HCC); Laboratory Medicine [facility] Jr[facility] Subsequent; and Pathology, D.O. Anticoagulant Therapy [place], in [address] [place] [phone] [place] [address] [place], [place] (Work) [phone] Social History Tobacco Use [...] How often do you attend holiness or adventist 1 to 4 times per [...] Take 1 tablet by 0 06/13/2017 05/31/20 [id number]-biot-zinc mouth daily. (DIALYVITE) [id number] cf-uo-rgd-mg tablet calcium carbonate Chew 2 tablets 2 [...] Take 2 capsules (2 360 capsule 3 10/0 03/201812/08/2019 mg capsule mg total) by mouth [...] An Nicholas APRN C.N.P., D.N.P., M.S.N. [address] [place] [phone] (Nicolas wen) 07/31/2022 Lab Laboratory Medicine Tony Rubalcava M. B., Ch.B., M.D. [address] [place] [address] [phone] (Nicolas wen) 07/31/2022 Lab Laboratory Medicine Tony Rubalcava M. B., Ch.B., M.D. [address] [place] [address] [phone] (Nicolas wen) 07/31/2022 Office Visit Transplant Tony Rubalcava M.B., Ch.B., M.D. [address] [place] [address] [phone] (Nicolas wen) 07/31/2022 Appointment Radiology Tony Rubalcava M.B., Ch.B., M.D. [address] [place] [address] [phone] (Nicolas wen) 08/01/2022 Office Visit Transplant Tony Rubalcava M.B., Mukund Otoole [address] [place], [place] [phone] (Wo rk) 08/01/2022 Clinical Support Transplant Tony Rubalcava M.B., Mukund [place]to[place] [address] [place], [place] [phone] (Wo rk) documented as of this encounter Procedures Procedure Name Priority Date/Time Associated Comments Diagnosis PROTHROMBIN TIME Routine 04/25/2019 9:21 AM Chronic Kidney Res ults for this (PT), P CDT Disease Stage 5 procedure ar e in Glomerular the results Filtration Rate section. Less Than 15 (HC C) Complication Dialysis Device Subsequent Anticoagulant Therapy documented in this encounter Results (ABNORMAL) Prothrombin Time (PT/INR) (04/25/2019 9:21 AM CDT) [facility] Method Time Signature Prothrombin 14.0 (H) [...] [facility] - 200 [place], [place] [address] [facility] documented in this encounter Visit Diagnoses Diagnosis Chronic Kidney Disease Stage 5 Glomerula r Filtration Rate Less Than 15 (HCC) Complication Dialysis Device Subsequent Anticoagulant Therapy documented in this encounter Additional Health Concerns Assessment Noted Time PHQ-9 Depression Total Score: 4 01/30/2019 12:13 PM CD T documented as of this encounter
--- OUTSIDE RECORDS SUMMARY | 2022-05-25 13:22 | XMS_ITS | Encounter Summary ---
:1960 Author Organization [facility] Address [address] [place] [address] Care Team Providers Name Role Phone Unavailable Primary Care Provider Unavailable Encounter Details Date Type Department Care Team Description 04/25/2019 Hospital Encounter Department of Josr Martínez Jr., DIra [address] [place] [phone] Chronic Kidney Disease Stage 5 Glomerula r Filtration Rate Less Than 15 (HCC); Radiology, Jatin De La Fuente M.D. [address] [place] [phone] Complication Dialysis Device Subsequent; Building, in [place], [place] [address] [place] [phone] Social History Tobacco Use Types Packs/Day Years [...] How often do you attend episcopalian or mormonism 1 to 4 times per [...] Sign Reading Time Taken Comments Blood Pressure 183/96 04/25/2019 2:00 PM CDT Pulse 59 04/25/2019 2:05 PM CDT Temperature 36.7 ??C (98.1 ??F) 04/25/2019 11:07 AM CDT Respiratory Rate 16 04/25/2019 2:05 PM CDT Oxygen Saturation 97% 04/25/2019 2:05 PM CDT Inhaled Oxygen Concentration - - Weight - - Height - - Body Mass Index - - documented in this encounter Medications at Time of Discharge Medication Sig Dispensed Refills Start Date End Date hydrocortisone Apply 1 application 0 09/18/2017 (for_HYTONE) 2.5 % topically daily as cream needed (Eczema). warfarin (COUMADIN) 2 Take 1.5 tablets (3 135 tablet 3 04/2505/12/2019 mg tablet mg total) by mouth daily. Take as directed per After Visit Summary. cefadroxil (DURICEF) Take 1 capsule (500 7 capsule 0 201805/19/2019 500 mg mg total) by mouth capsuleIndications: daily for 7 days Skin and soft tissue Indications: Skin infection and soft tissue infection. acetaminophen (TYLENOL) Take 2 tablets 0 09/04/07/2022 500 mg tablet (1,000 mg total) by mouth every 6 (six) hours as needed for pain. B complex Take 1 tablet by 0 06/13/2017 05/31/20 08-oafgt-N-biot-zinc mouth daily. (DIALYVITE) [phone] re-rx-wut-mg tablet calcium carbonate Chew 2 tablets 2 [...] Visit Summary. documented as of this encounter H&P Notes Gino Freeman Admin Closure - 04/25/2019 2:54 PM CDT Administrative Closure: This record is being filed as incomplete for a missing interval/updated H&P. [facility] [employer] documented in this encounter Procedure Notes Jatin Mcconnell M.D. - 04/25/2019 1:49 PM CDT PATIENT DISPOSITION Return to Outpatient Unit for recovery. Discharge patient when discharge criteria met. POST-PROCEDURE DIAGNOSIS Malfunctioning tunneled dialysis catheter PROCEDURE PERFORMED AND DESCRIPTION Exchange of tunneled left IJ dialysis catheter PROCEDURE DETAILS See Radiology Report SPECIMENS REMOVED None FINDINGS Exchange of tunneled left IJ dialysis catheter. Ready for use. PRIMARY PROCEDURALIST Dr. Jatin Mcconnell ASSISTANTS None [...] An Nicholas APRN C.N.PDavi, D.N.P., M.S.N. [address] [place] [phone] (Nicolas wen) 07/31/2022 Lab Laboratory Medicine Tony Rubalcava M. B., Sydnie, Mukund [address] [place] [phone] (Nicolas wen) 07/31/2022 Lab Laboratory Medicine Tony Rubalcava M. B., Sydnie, Mukund [address] [place] [address] [phone] (Nicolas wen) 07/31/2022 Office Visit Transplant Tony uRbalcava M.B., Sydnie, Mukund [address] [place] [address] [phone] (Nicolas wen) 07/31/2022 Appointment Radiology Tony Rubalcava M.B., ChBurke, MDebra [address] [place] [address] [phone] (Nicolas wen) 08/01/2022 Office Visit Transplant Tony Rubalcava M.B., Sydnie, MDebra [address] [place] [address] [phone] (Nicolas wen) 08/01/2022 Clinical Support Transplant Tony Rubalcava M.B., Sydnie, Ludwin.D. [address] [place], [place] [phone] (Wo rk) documented as of this encounter Procedures Procedure Name Priority Date/Time Associated Comments Diagnosis IR DIALYSIS / RAD - Routine 04/25/2019 1:30 Chronic Kidney Results for this HIGH FLOW (most inpatients PM CDT Disease Stage 5 procedur e are in CATHETER and all Glomerular the results PLACEMENT outpatients) Filtration Rate section. Less Than 15 (HCC) Complication Dialysis Device Subsequent Anticoagulant Therapy documented in this encounter Results IR Dialysis [...] lidocaine was used for local anesthetic. Initial adult educator image showed t he tip of the tunneled dialysis catheter in the SVC. Stiff angled Glidewire were advanced through each lumen of the tunneled dialysis catheter into the IVC. The catheter was removed and a 9 Filipino by 23 cm Brite tip sheath was [...] lidocaine was used for local anesthetic. Initial adult educator image showed t he tip of the tunneled dialysis catheter in the SVC. Stiff angled Glidewire were advanced through each lumen of the tunneled dialysis catheter into the IVC. The catheter was removed and a 9 Filipino by 23 cm Brite tip sheath was [...] the right atrium. Ready for use. NR Whitney Rasheed Jr.ODavi IMEdinson IR PROCEDURES documented in this encounter Visit Diagnoses Diagnosis Chronic Kidney Disease Stage 5 Glomerula r Filtration Rate Less Than 15 (HCC) Complication Dialysis Device Subsequent Anticoagulant Therapy documented in this encounter Administered Medications Inactive Administered Medications - up to 3 most recent administrations Medication Order MAR Action Action Date Dose Rate Site ceFAZolin injection 2,000 mg Given 04/25/2019 1:05 PM CDT 2,000 mg (ANCEF) 2,000 mg (rounded from 2,467.5 mg = 25 mg/kg ? 98.7 kg), intravenous, Once, On Sun04/25/19 at 1300, For 1 dose, Intraprocedure (RAD), Preoperatively within one hour of incision. Adminster IV push over 3 minutes. Add 5 mL NS to 1 gram vial for a final concentration of 200 mg/mL., Indications: Prophylaxis, surgical fentaNYL injection 25 mcg (SUBLIMAZE) Given 04/25/2019 1:20 PM CDT 25 mcg 25 mcg, intravenous, Every 2 min PRN, sedation, or pain before and during sedation procedure, Starting on Sun04/25/19 at 1304, Intraprocedure (RAD), Administer over 1 minute immediately prior to the procedure. May repeat every 2 minutes to a maximum of 200 mcg, until pain score of 3 or less, or until the patient meets the pain comfort goal. Do not give if respiratory rate is less than 8 breaths/minute Given 04/25/2019 1:15 PM CDT 25 mcg Given 04/25/2019 1:13 PM CDT 25 mcg flumazenil injection 0.2 mg (ROMAZICON) 0.2 mg, intravenous, Once as needed, rev ersal, Starting on Sun04/25/19 at 1304, For 1 dose, Intraprocedure (RAD), Administer once if patient has a RASS score of -4, -5 and has a respiratory rate less than 8 breaths/minute. iohexol 300 mg iodine/mL solution (OMNIP AQUE) Given 04/25/2019 1:29 PM CDT 20 mL Code/trauma/sedation medication, Starting on Sun04/25/19 at 1329 lidocaine-sodium bicarbonate 1%-8.4% inj ection Given 04/25/2019 1:30 PM CDT 7 mL infiltration, Code/trauma/sedation medication, Starting on Sun04/25/19 at 1330 midazolam (PF) injection 0.5 mg (VERSED) 0.5 mg, intravenous, Once as needed, sed ation, Starting on Sun04/25/19 at 1304, For 1 dose, Intraprocedure (RAD) midazolam (PF) injection 0.5 mg (VERSED) Given 04/25/2019 1:20 PM CDT 0.5 mg 0.5 mg, intravenous, Every 2 min PRN, sedation, Starting on Sun04/25/19 at 1304, Intraprocedure (RAD), If RASS greater than -3, give additional dose(s) of 0.5 mg IV every 2 minutes for a maximum of 5 mg. Do not give if respiratory rate is less than 8 breaths/minute. Given 04/25/2019 1:15 PM CDT 0.5 mg Given 04/25/2019 1:13 PM CDT 0.5 mg NaCl 0.9% infusion New Bag 04/25/2019 1:05 PM CDT 20 mL/hr 20 mL/hr 20 mL/hr, intravenous, Once as needed, to keep vein open, Starting on Sun04/25/19 at 1304, For 1 dose, Intraprocedure (RAD) naloxone injection 0.2 mg (NARCAN) 0.2 mg, intravenous, Once as needed, res piratory depression, Starting on Sun04/25/19 at 1304, For 1 dose, Intraprocedure (RAD ), Administer once if patient has a RASS score of -4, -5 and has a respiratory rate less than 8 breaths/minute. nebivolol tablet 10 mg (BYSTOLIC) Given 04/25/2019 2:32 PM CDT 10 mg 10 mg, oral, Once, On Sun04/25/19 at 1415, For 1 dose sodium chloride 0.9 % injection 10 mL 10 mL, intravenous, As needed, line care, Starting on Sun04/25/19 at 1258, Preprocedure (RAD), Peripheral Intraveno us Catheter and Rapid Infusion Catheter, prior to blood sampling, post blood transfusion or pos t blood sampling sodium chloride 0.9 % injection 10 mL 10 mL, intravenous, As needed, line care, Starting on Sun04/25/19 at 1304, Preprocedure (RAD), Peripheral Intraveno us Catheter and Rapid Infusion Catheter, prior to blood sampling, post blood transfusion or pos t blood sampling sodium chloride 0.9 % injection 3 mL 3 mL, intravenous, As needed, line care, Starting on ri 04/25/19 at 1258, Preprocedure (RAD), Prior to and following infusion an d between multiple consecutive infusions: sodium chloride 0.9 % injection sodium chloride 0.9 % injection 3 mL 3 mL, intravenous, Every 12 hours scheduled, First dos e on Sun04/25/19 at 2100, Preprocedure (RAD), Peripheral Intraveno us Catheter and Rapid Infusion Catheter, when no infusion to maintain patency sodium chloride 0.9 % injection 3 mL 3 mL, intravenous, As needed, line care, Starting on ri 04/25/19 at 1304, Preprocedure (RAD), Prior to and following infusion an d between multiple consecutive infusions: sodium chloride 0.9 % injection sodium chloride 0.9 % injection 3 mL 3 mL, intravenous, Every 12 hours scheduled, First dos e on Sun04/25/19 at 2100, Preprocedure (RAD), Peripheral Intraveno us Catheter and Rapid Infusion Catheter, when no infusion to maintain patency sodium citrate injection Given 04/25/2019 1:28 PM CDT 6 mL Chest Code/trauma/sedation medication, Starting on Sun04/25/19 at 1328 documented in this encounter Active and Recently Administered Medications Times are shown in CDT. Scheduled Medication Order 04/23/2019 04/24/2019 04/25/2019 ceFAZolin injection 2,000 mg (ANCEF) (COMPLETED) 1305 (Given - Provider: Rubina Simpson R.N.) 2,000 mg (rounded from 2,467.5 mg = 25 m g/kg ? 98.7 kg), intravenous, Once, On Sun04/25/19 at 1300, For 1 dose, Intraprocedure (RAD), Preoperatively within one hour of incision. Adminster IV push over 3 minutes. Add 5 mL NS to 1 gram vial for a final concentration of 200 mg/mL., Indications: Prophylaxis, surgical ceFAZolin injection 2,000 mg (ANCEF) 1315 (Due) 2,000 mg (rounded from 2,467.5 mg = 25 m g/kg ? 98.7 kg), intravenous, Once, Sun04/25/19 at 1315, For 1 dose, Intraprocedure (RAD), Preoperatively within one hour of incision. Adminster IV push over 3 mi nutes. Add 5 mL NS to 1 gram vial for a final concentration of 200 mg/mL., Indications: Prophylaxis, surgical nebivolol tablet 10 mg (BYSTOLIC) (COMPLETED) 1432 (Given - Provider: Stephanie Michele RRalf) 10 mg, oral, Once, On Sun04/25/19 at 1415, For 1 dose sodium chloride 0.9 % injection 3 mL 3 mL, intravenous, Every 12 hours schedu led, First dose on Sun04/25/19 at 2100, Preprocedure (RAD), Peripheral Intravenous Catheter and Rapid Infusion Catheter, when no infusion to maintain patency sodium chloride 0.9 % injection 3 mL 3 mL, intravenous, Every 12 hours schedu led, First dose on Sun04/25/19 at 2100, Preprocedure (RAD), Peripheral Intravenous Catheter and Rapid Infusion Catheter, when no infusion to maintain patency PRN Medication Order 04/23/2019 04/24/2019 04/25/2019 fentaNYL injection 25 mcg (SUBLIMAZE) 1258 (Given - Provider: Rubina Simpson R.N.)1300 (Given - Provider: Rubina Simpson R.N.)1306 (Given - Provider: Rubina Simpson R.N.)1309 (Given - Provider: Rubina Simpson R.N.)1313 (Given - Provider: Rubina Simpson R.N.) 25 mcg, intravenous, Every 2 min PRN, se dation, or pain before and during sedation procedure, Starting on Sun04/25/19 at 1304, Intraprocedure (RAD), Administer over 1 minute immediately prior to the proc 1315 (Given - Provider: Rubina Simpson R.N.)1320 (Given - Provider: Rubina Simpson R.N.) edure. May repeat every 2 minutes to a m aximum of 200 mcg, until pain score of 3 or less, or until the patient meets the pain comfort goal. Do not give if respiratory rate is less than 8 breaths/minute flumazenil injection 0.2 mg (ROMAZICON) 0.2 mg, intravenous, Once as needed, rev ersal, Starting on Sun04/25/19 at 1304, For 1 dose, Intraprocedure (RAD), Administer once if patient has a RASS score of -4, -5 and has a respiratory rate less than 8 breaths/minute. iohexol 300 mg iodine/mL solution (OMNIPAQUE) (COMPLETED) 1329 (Given - Provider: Jatin Mcconnell M.D.) Code/trauma/sedation medication, Starting on Sun04/25/19 at 1329 lidocaine-sodium bicarbonate 1%-8.4% injection (COMPLETED) 1330 (Given - Provider: Jatin Mcconnell M.D.) infiltration, Code/trauma/sedation medication, Starting on Sun at 1330 midazolam (PF) injection 0.5 mg (VERSED) 0.5 mg, intravenous, Once as needed, sed ation, Starting on Sun04/25/19 at 1304, For 1 dose, Intraprocedure (RAD) midazolam (PF) injection 0.5 mg (VERSED) 1258 (Given - Provider: Rubina Simpson R.N.)1300 (Given - Provider: Rubina Simpson R.N.)1306 (Given - Provider: Rubina Simpson R.N.)1309 (Given - Provider: Rubina Simpson R.N.)1313 (Given - Provider: Rubina Simpson R.N.) 0.5 mg, intravenous, Every 2 min PRN, se dation, Starting on Sun04/25/19 at 1304, Intraprocedure (RAD), If RASS greater than -3, give additional dose(s) of 0.5 mg IV every 2 minutes for a maximum of 5 mg. 1315 (Given - Provider: Rubina Simpson R.N.)1320 (Given - Provider: Rubina Simpson R.N.) Do not give if respiratory rate is less than 8 breaths/minute. NaCl 0.9% infusion (COMPLETED) 1 305 (New Bag - Provider: Rubina Simpsno R.N.) 20 mL/hr, intravenous, Once as needed, t o keep vein open, Starting on Sun04/25/19 at 1304, For 1 dose, Intraprocedure (RAD) naloxone injection 0.2 mg (NARCAN) 0.2 mg, intravenous, Once as needed, res piratory depression, Starting on Sun04/25/19 at 1304, For 1 dose, Intraprocedure (RAD), Administer once if patient has a RASS score of -4, -5 and has a respiratory rate less than 8 breaths/minute. sodium chloride 0.9 % injection 10 mL 10 mL, intravenous, As needed, line care , Starting on Sun04/25/19 at 1258, Preprocedure (RAD), Peripheral Intravenous Catheter and Rapid Infusion Catheter, prior to blood sampling, post blood transfusion or post blood sampling sodium chloride 0.9 % injection 10 mL 10 mL, intravenous, As needed, line care , Starting on Sun04/25/19 at 1304, Preprocedure (RAD), Peripheral Intravenous Catheter and Rapid Infusion Catheter, prior to blood sampling, post blood transfusion or post blood sampling sodium chloride 0.9 % injection 3 mL 3 mL, intravenous, As needed, line care, Starting on Sun04/25/19 at 1258, Preprocedure (RAD), Prior to and following infusion and between multiple consecutive infusions: sodium chloride 0.9 % injection sodium chloride 0.9 % injection 3 mL 3 mL, intravenous, As needed, line care, Starting on Sun04/25/19 at 1304, Preprocedure (RAD), Prior to and following infusion and between multiple consecutive infusions: sodium chloride 0.9 % injection sodium citrate injection (COMPLETED) 1328 (Given - Provider: Rubina Simpson R.N.) Code/trauma/sedation medication, Starting on Sun04/25/19 at 1328 documented in this encounter Additional Health Concerns Assessment Noted Time PHQ-9 Depression Total Score: 4 01/30/2019 12:13 PM CD T documented as of this encounter
--- OUTSIDE RECORDS SUMMARY | 2022-05-25 13:23 | XMS_ITS | Encounter Summary ---
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 cephalexin (KEFLEX) 500 Take 1 capsule (500 7 capsule 0 04/11/2019 mg capsule mg total) by mouth daily for 7 days. On dialysis days, take dose after dialysis has been completed. B complex Take 1 tablet by 0 06/13/2017 05/31/20 19 64-wiswb-C-biot-zinc mouth daily. (DIALYVITE) [phone] ys-ai-dgu-mg tablet ciprofloxacin (CIPRO) Take 1 tablet by 6 [...] as needed (spasm pain assoc with stent). documented as of this encounter Plan of Treatment Upcoming Encounters Date Type Specialty Care Team Description 06/01/2022 Telemedicine Pharmacy An Nicholas APRN, C.N.P., D.N.P., M.S.N. [address] [place] [address] [phone] (Wo rk) 07/31/2022 Lab Laboratory Medicine Tony Rubalcava M. B., Ch.B., M.D. 200 [place], [place] [phone] (Wo rk) 07/31/2022 Lab Laboratory Medicine Tony Rubalcava M. B., Ch.B., M.D. [address] [place] [address] [phone] (Wo rk) 07/31/2022 Office Visit Transplant Tony Rubalcava M.B., Mukund [place] [address] [place] [address] [phone] (Wo rk) 07/31/2022 Appointment Radiology Tony Rubalcava M.B., Mukund [place] [address] [place] [address] [phone] (Wo rk) 08/01/2022 Office Visit Transplant Tony Rubalcava M.B., Mukund [place] [address] [place] [address] [phone] (Wo rk) 08/01/2022 Clinical Support Transplant Tony Rubalcava M.B., Sydnie, Mukund [address] [place] [address] [phone] (Wo rk) documented as of this encounter Procedures Procedure Name Priority Date/Time Associated Diagnosis Comme nts THROMBOPHILIA PROF Routine 04/04/2019 10:20 Complication Resul ts for this AM CDT Dialysis Fistula procedure a re in Subsequent the results Chronic Failure section. 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 BETA-2 GLYCOPROTEIN 1 Routine 04/04/2019 10:19 Complication Re sults for this ABS, IGG AND IGM, S AM CDT Dialysis Fistula proc edure are in Subsequent the results Chronic Failure section. 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 INR CANCELED 04/07/2019 3:32 PM CDT Comment: Result canceled by the ancillar y. Activated Partial Thrombopl Time, P CANCELED 03/20 3:32 PM CDT Comment: Result canceled by the ancillar y. DRVVT Screen Ratio CANCELED 04/07/2019 3:32 PM CD T Comment: Result canceled by the ancillar y. Thrombin Time (Bovine), P CANCELED 04/07/2019 3:3 2 PM CDT Comment: ----ADDITIONAL INFORMATION---- This test has been modified from the [place] [employer]'s instructions. Its performance characteri stics were determined by [facility] in a manner co nsistent with CLIA requirements. This test has not bee n cleared or approved by the U.S. Food and Drug Admin istration. Result canceled by the ancillary. Fibrinogen, P CANCELED 200 - 430 mg/dL 04/07/2019 3:32 PM C DT Comment: REVISED RESULTS ----ADDITIONAL INFORMATION---- This test has been modified from the [employer]'s instructions. Its performance characteri stics were determined by [facility] in a manner co nsistent with CLIA requirements. This test has not bee n cleared or approved by the U.S. Food and Drug Admin istration. ----PREVIOUSLY REPORTED ---- 657, Flagged as: Abnormal_High (Reported 04/05/2019 10:19) Fibrinogen Equivalent Units (FEU) CANCELED 2018 3:32 PM CDT Comment: Result canceled by the ancillar y. D-Dimer Units (DDU) CANCELED 04/07/2019 3:32 PM C DT Comment: Result canceled by the ancillar y. Soluble Fibrin Monomer CANCELED 0.0 - 7.9 mcg/mL 04/07/2019 3:32 PM CDT Comment: ----ADDITIONAL INFORMATION---- This test was developed and its performa nce characteristics determined by [facility] in a manner co nsistent with CLIA requirements. This test has not bee n cleared or approved by the U.S. Food and Drug Admin istration. Result canceled by the ancillary. Antithrombin Activity, P CANCELED 80 - 130 % 04/07/2019 3:3 2 PM CDT Comment: REVISED RESULTS ----ADDITIONAL INFORMATION---- This test has been modified from the [place] [employer]'s instructions. Its performance characteri stics were determined by [facility] in a manner co nsistent with CLIA requirements. This test has not bee n cleared or approved by the U.S. Food and Drug Admin istration. ----PREVIOUSLY REPORTED ---- 103, Flagged as: Normal (Reported 04/05/2019 10:16) Protein C Activity, P CANCELED 04/07/2019 3:32 PM CDT Comment: ----ADDITIONAL INFORMATION---- This test has been modified from the [place] [employer]'s instructions. Its performance characteri stics were determined by [facility] in a manner co nsistent with CLIA requirements. This test has not bee n cleared or approved by the U.S. Food and Drug Admin istration. Result canceled by the ancillary. Protein S Ag, Free, P CANCELED 65 - 160 % 04/07/2019 3:32 P M CDT Comment: REVISED RESULTS ----ADDITIONAL INFORMATION---- This test has been modified from the [place] [employer]'s instructions. Its performance characteri stics were determined by [facility] in a manner co nsistent with CLIA requirements. This test has not bee n cleared or approved by the U.S. Food and Drug Admin istration. ----PREVIOUSLY REPORTED ---- 106, Flagged as: Normal (Reported 04/05/2019 10:12) APCRV Ratio CANCELED >or=2.3 04/07/2019 3:32 PM CDT Comment: REVISED RESULTS ----PREVIOUSLY REPORTED ---- 3.1, Flagged as: Normal (Reported 04/05/2019 10:09) Interpretation CANCELED 04/07/2019 3:32 PM CDT Comment: Result canceled by the ancillar y. Prothrombin [id number] Mutation, B CANCELED Negative 04/07/20 3:32 PM CDT Comment: Result canceled by the ancillar y. PTNT Interpretation CANCELED 04/07/2019 3:32 PM C DT Comment: Result canceled by the ancillar y. Interpretation CANCELED 04/07/2019 3:32 PM CDT Comment: Result canceled by the ancillar y. Specimen Anatomical Collection Method Collection Time Receive d Time (Source) Location / / Volume Laterality Blood (Blood, 04/04/2019 10:20 04/05/2019 7:22 Venous) AM CDT AM CDT Narrative [facility] - 04/07/2019 3:32 PM CDT Thrombophilia Prof was cancelled on 04/07/2019 at 15:32; Specimen clotted. !CNCL! Specimen Information: Specimen ID: [id number] Specimen Type: Blood Specimen Collection Start Date: 04/04/20 10:20 AM Specimen Received Date: 04/05/2019 ??7:2 2 AM Specimen ID: [id number] Specimen Type: Blood Specimen Collection Start Date: 04/04/20 10:20 AM Specimen Received Date: 04/05/2019 ??7:2 2 AM Specimen ID: [id number] Specimen Type: Blood Specimen Collection Start Date: 04/04/20 10:20 AM Specimen Received Date: 04/05/2019 ??7:2 2 AM Specimen ID: [id number] Specimen Type: Blood Specimen Collection Start Date: 04/04/20 10:20 AM Specimen Received Date: 04/05/2019 ??7:2 2 AM Specimen ID: [id number] Specimen Type: Blood Specimen Collection Start Date: 04/04/20 10:20 AM Specimen Received Date: 04/05/2019 ??7:2 2 AM Specimen ID: [id number] Specimen Type: Blood Specimen Collection Start Date: 04/04/20 10:20 AM Specimen Received Date: 04/05/2019 ??9:2 2 AM Deanne Fisher APRN, C.N.P., M.S.N. LAB BLOOD NON A DD-ON Performing Organization Address City/[facility] Phon e Number [facility] - [address] [place], [place] [address] [facility] Peripheral Morphology (04/04/2019 10:19 AM CDT) Component Value Ref Test Analysis Performed Pathologis t Range Method Time At Signature Report Serina Nagy, 04/07/2019 electronically 1:51 PM signed by CDT 04/07/2019 1:51 PM CDT Specimen Received A. Peripheral 04/07/2019 blood smear, 1:51 PM CDT Gross Description Received is a peripheral blood smear and accompan jyoti 04/07/2019 hemogram results. 1:51 PM CDT Microscopic Red blood cells: The red blood cells are normocytic an d 04/07/2019 Description normochromic. Significant anisocytosis or poikilocytosis 1:51 PM are not seen. No abnormal red cell inclusions are seen. The CDT MCV is normal. White blood cells: The white blood cell count and absolute differential are within normal limits. The neutrophils, lymphocytes, monocytes and eosinophils seen are mature. No blasts are seen. Platelets: The platelet count and morphology are within normal limits. Interpretation FINAL DIAGNOSIS 04/07/2019 Peripheral blood smear: Morphologically unremarkable red 1:51 PM cells, white cells and platelets. CDT Specimen Anatomical Collection Method Collection Time Receive d Time (Source) Location / / Volume Laterality Blood 04/04/2019 10:19 04/04/2019 3:30 AM CDT PM CDT Narrative This result has an attachment that is no t available. Deanne Fisher APRN, C.N.P., M.S.N. LAB BLOOD ADD-O N Performing Organization Address City/[facility]/ZIP Code Phon e Number [facility] [address] [place] [address] LAB Phospholipid (Cardiolipin) Antibodies, IgG and IgM (04/04/2019 10:19 AM CDT) athologist Signature Phospholipid Ab <9.4 <15.0 04/05/2019 IgM, S (Negative) 12:31 PM CDT MPL Phospholipid Ab <9.4 <15.0 04/05/2019 IgG, S (Negative) 12:31 PM CDT GPL Specimen Anatomical Collection Method Collection Time Receive d Time (Source) Location / / Volume Laterality Blood (Blood, 04/04/2019 10:19 04/05/2019 7:00 Venous) AM CDT AM CDT Deanne Fisher APRN, C.N.P., M.S.N. LAB BLOOD ADD-O N Performing Organization Address [facility] Phon e Number [address] [place] [address] [facility] Beta-2 Glycoprotein 1 Antibodies, IgG and IgM (04/04/2019 10:19 AM CDT) athologist Signature Beta 2 GP1 Ab <9.4 <15.0 04/05/2019 IgG, S (Negative) 3:12 PM CDT U/mL Beta 2 GP1 Ab <9.4 <15.0 04/05/2019 IgM, S (Negative) 3:22 PM CDT U/mL Specimen Anatomical Collection Method Collection Time Receive d Time (Source) Location / / Volume Laterality Blood (Blood, 04/04/2019 10:19 04/05/2019 7:00 Venous) AM CDT AM CDT Milli Bangura APRNN.Nela., M.S.N. LAB BLOOD ADD-O N Performing Organization Address City/[facility] Phon e Number [address] [place] [address] [facility] CBC with Differential, Blood (04/04/2019 10:19 AM CDT) athologist Signature Hemoglobin 12.5 11.6 - 04/04/2019 15.0 g/dL 10:27 AM CDT Hematocrit 40.5 35.5 - 04/04/2019 44.9 % 10:27 AM CDT Erythrocytes 4.26 3.92 - 04/04/2019 5.13 10:27 AM CDT x10(12)/L MCV 95.1 78.2 - 04/04/2019 97.9 fL 10:27 AM CDT RBC Distrib Width 14.7 12.2 - 04/04/2019 16.1 % 10:27 AM CDT Platelet Count 217 157 - 371 04/04/2019 x10(9)/L 10:27 AM CDT Leukocytes 7.8 3.4 - 9.6 04/04/2019 x10(9)/L 10:27 AM CDT Neutrophils 5.53 1.56 - 04/04/2019 6.45 10:27 AM CDT x10(9)/L Lymphocytes 1.33 0.95 - 04/04/2019 3.07 10:27 AM CDT x10(9)/L Monocytes 0.67 0.26 - 04/04/2019 0.81 10:27 AM CDT x10(9)/L Eosinophils 0.21 0.03 - 04/04/2019 0.48 10:27 AM CDT x10(9)/L Basophils 0.02 0.01 - 04/04/2019 0.08 10:27 AM CDT x10(9)/L Specimen Anatomical Collection Method Collection Time Receive d Time (Source) Location / / Volume Laterality Blood (Blood, 04/04/2019 10:19 04/04/2019 Venous) AM CDT 10:20 AM CDT Milli Bangura APRNN.P., M.S.N. 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
--- OUTSIDE RECORDS SUMMARY | 2022-05-25 13:23 | XMS_ITS | Encounter Summary ---
:1960 Author Organization [facility] Address [address] [place] [address] Care Team Providers Name Role Phone Unavailable Primary Care Provider Unavailable Reason for Visit Reason Onset Date Comments Med Management 04/01/2019 Encounter Details Date Type Department Care Team Description 04/01/2019 Clinical Communication [facility] L, R.N. Transplantation and Clinical Regeneration in [place], [place] [address] [place] [phone] Social History Tobacco Use Types Packs/Day [...] How often do you attend zoroastrian or mandaeism 1 to 4 times per [...] this encounter Miscellaneous Notes Telephone Encounter - Jeni Cantrell M.D. - 04/01/2019 4:19 PM CDT No, I would not make any changes Telephone Encounter - Zoraida Faria R.N. - 04/01/2019 3:51 PM CDT Patient is active on the transplant list. 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 Her last tacrolimus level resulted on 03/28 at 4.9. Her target in Edit is still shown as 6-8. Shouldwe adjust per protocol assuming target is still 6-8 or would you like to alter her target range? Please advise. documented in this encounter Plan of Treatment Upcoming Encounters Date Type Specialty Care Team Description 06/01/2022 Telemedicine Pharmacy An Nicholas APRN, C.N.P., D.N.P., M.S.N. [address] [place] [address] [phone] (Wo rk) 07/31/2022 Lab Laboratory Medicine Tony Rubalcava M. B., Sydnie, MDebra [address] [place] [address] [phone] (Wo rk) 07/31/2022 Lab Laboratory Medicine Tony Rubalcava M. B., Sydnie, Mukund [address] [place] [phone] (Wo rk) 07/31/2022 Office Visit Transplant Tony Rubalcava M.B., Sydnie, Mukund [address] [place] [address] [phone] (Wo rk) 07/31/2022 Appointment Radiology Tony Rubalcava M.B., Sydnie, Mukund [address] [place] [address] [phone] (Wo rk) 08/01/2022 Office Visit Transplant Tony Rubalcava M.B., Sydnie, MDebra [address] [place] [address] [phone] (Wo rk) 08/01/2022 Clinical Support Transplant Tony Rubalcava M.B., Sydnie, Mukund [address] [place] [address] [phone] (Wo rk) documented as of this encounter Visit Diagnoses Not on filedocumented in this encounter Additional Health Concerns Assessment Noted Time PHQ-9 Depression Total Score: 4 01/30/2019 12:13 PM CD T documented as of this encounter
--- OUTSIDE RECORDS SUMMARY | 2022-05-25 13:23 | XMS_ITS | Encounter Summary ---
:1960 Author Organization [facility] Address [address] [place] [address] Care Team Providers Name Role Phone Unavailable Primary Care Provider Unavailable Encounter Details Date Type Department Care Team Description 04/09/2019 Documentation Division of Nephrology and Josr Martínez Hypertension in [place], ., D.O. [place] 200 [facility] 200 [place] [phone] [phone] (Wo rk) Social History Tobacco Use Types [...] How often do you attend restorationist or mormonism 1 to 4 times per [...] Progress Notes Steve Martínez Jr., D.O. - 04/09/2019 5:28 PM CDT Event documentation: I was called by Marii Collier today. Ms Quinn RN called with news that her venous limb of her CVC could not be aspirated, following instilling TPA Saturday 04/07. There were bubbles in the pink tinged fluid which was hard to aspirate. I advised L lateral recumbent position and instilling saline. This went well. [place] of the past 4 sessions she had had a drop in sats and increased dyspnea with intiation of HD. She does well with Oxygen and we have been reaching her target weight. BP has been stable. There were noted IJ thrombi by IR. We have arranged for thrombophilia testing. I am also worried about potential clot burden and will ask for an echo. Please see recent numerous notes. I am quite concerned about her access issues, and with her prior PD failure, we are getting into an urgent situation with respect to her re-transplant. documented in this encounter Plan of Treatment Upcoming Encounters Date Type Specialty Care Team Description 06/01/2022 Telemedicine Pharmacy An Nicholas APRN, C.N.P., D.N.P., M.S.N. [address] [place] [address] [phone] (Wo rk) 07/31/2022 Lab Laboratory Medicine Tony Rubalcava M. B., Sydnie, Mukund [address] [place] [phone] (Wo rk) 07/31/2022 Lab Laboratory Medicine Tony Rubalcava M. B., Sydnie, Mukund [address] [place] [address] [phone] (Wo rk) 07/31/2022 Office Visit Transplant Tony Rubalcava M.B., Sydnie, Mukund [address] [place] [address] [phone] (Wo rk) 07/31/2022 Appointment Radiology Tony Rubalcava M.B., Sydnie, Mukund [address] [place] [address] [phone] (Wo rk) 08/01/2022 Office Visit Transplant Tony Rubalcava M.B., Sydnie, Mukund [address] [place] [phone] (Wo rk) 08/01/2022 Clinical Support Transplant Tony Rubalcava M.B., Sydnie, Mukund [address] [place] [address] [phone] (Wo rk) documented as of this encounter Visit Diagnoses Not on filedocumented in this encounter Additional Health Concerns Assessment Noted Time PHQ-9 Depression Total Score: 4 01/30/2019 12:13 PM CD T documented as of this encounter
--- OUTSIDE RECORDS SUMMARY | 2022-05-25 13:23 | XMS_ITS | Encounter Summary ---
:1960 Author Organization [facility] Address [address] [place] [address] Care Team Providers Name Role Phone Unavailable Primary Care Provider Unavailable Encounter Details Date Type Department Care Team Description 04/07/2019 Clinical Communication Division of Nephrology Deanne Fisher and Hypertension in , ENGINEERING TECHNICIAN, C.N.P.[place], [place] M.S.N. 200 [facility] 200 [place] [phone] Social History Tobacco Use Types Packs/Day Years [...] How often do you attend scientologist or christian 1 to 4 times per [...] - Deanne Fisher APRN, C.N.P., M.S.N. 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 I had reviewed these when they resulted on April 05, though based on my conversation with the coagulation lab, when the specimen was frozen to be shipped to the [place] lab, the specimen began clotting. We are not able to use the previously reported values and the test results are considered invalid. Per discussion with the lab, having this test drawn in [place] would improve the chances that they will be able to obtain accurate results, as the specimen would then not need to be frozen for shipping. Ms. Wray will be in [place] for dialysis access appointments on April 10 and therefore I have reordered the thrombophilia testing to be done in [place] on that day. documented in this encounter Plan of Treatment Upcoming Encounters Date Type Specialty Care Team Description 06/01/2022 Telemedicine Pharmacy An Nicholas APRN, C.NDoc, Michelle.N.P., M.S.N. [address] [place] [address] [phone] (Wo rk) 07/31/2022 Lab Laboratory Medicine Tony Rubalcava M. B., Sydnie, Mukund [address] [place] [address] [phone] (Wo rk) 07/31/2022 Lab Laboratory Medicine Tony Rubalcava M. B., Sydnie, Mukund [address] [place] [address] [phone] (Wo rk) 07/31/2022 Office Visit Transplant Tony Rubalcava M.B., Sydnie, Mukund [address] [place] [address] [phone] (Wo rk) 07/31/2022 Appointment Radiology Tony Rubalcava M.B., Sydnie, Mukund [address] [place] [address] [phone] (Wo rk) 08/01/2022 Office Visit Transplant Tony Rubalcava M.B., Sydnie, MDebra [address] [place] [address] 55 [phone] (Wo rk) 08/01/2022 Clinical Support Transplant Tony Rubalcava M.B., Sydnie, MDebra [address] [place] [address] [phone] (Wo rk) documented as of this encounter Results (ABNORMAL) Thrombophilia Profile (04/10/2019 [...] This test has been modified from the burt [employer]'s instructions. Its performance characteri stics were determined by [facility] in a manner co nsistent with CLIA requirements. This test has not bee n cleared or approved by the U.S. Food and Drug Admin istration. Fibrinogen, P 725 (H) 200 - 430 mg/dL 04/10/2019 11:09 AM CDT Comment: ----ADDITIONAL INFORMATION---- This test has been modified from the Fuz[employer]urer's instructions. Its performance characteri stics were determined by [facility] in a manner co nsistent with [...] performa nce characteristics determined by [facility] in a manner co nsistent with CLIA requirements. This test has not bee n cleared or approved by the U.S. Food and Drug Admin istration. Antithrombin Activity, P 95 80 - 130 % 04/10/2019 11: 06 AM CDT Comment: ----ADDITIONAL INFORMATION---- This test has been modified from the Fuzmo[employer]urer's instructions. Its performance characteri stics were determined by [facility] in a manner co nsistent with CLIA requirements. This test has not bee n cleared or approved by the U.S. Food and Drug Admin istration. Protein C Activity, P 101 70 - 150 % 04/10/2019 11:28 AM CDT Comment: ----ADDITIONAL INFORMATION---- This test has been modified from the burt ufacturer's instructions. Its performance characteri stics were determined by [facility] in a manner co nsistent with CLIA requirements. This test has not bee n cleared or approved by the U.S. Food and Drug Admin istration. Protein S Ag, Free, P 116 65 - 160 % 04/10/2019 11:07 AM CDT Comment: ----ADDITIONAL INFORMATION---- This test has been modified from the burt ufacturer's instructions. Its performance characteri stics were determined by [facility] in a manner co nsistent with CLIA requirements. This test has not bee n cleared or approved by the U.S. Food and Drug Admin istration. APCRV Ratio 3.0 >or=2.3 04/10/2019 11:13 AM CDT Prothrombin [id number] Negative Negative 04/11/2019 5:03 PM Mutation, B CDT PTNT Reviewed By ASHLEY Dias 04/11/2019 5:03 PM CDT PTNT Interpretation This individual DOES NOT hav e the Prothrombin [id number] mutation. Although the 04/11/2019 5:03 PM Prothrombin [id number] mutation is absent, the jaz paula may have other genetic CDT and environmental risk factors for thrombosis. Conside r genetic consultation and counseling of potentially affected family members regard ing laboratory testing. Reviewed by: Ann Renteria M.D. 04/15/2019 10:27 A M CDT Interpretation ?Type of Study: ?? Thrombophilia Profile 04/15/2019 10:27 AM ?IMPRESSION: ??1) [place] rebecca D-dimer and fibrinogen; see comments and [...] patient does N OT have the prothrombin [id number] mutation. Specimen Anatomical Collection Method Collection Time Receive d Time (Source) Location / / Volume Laterality Blood (Blood, 04/10/2019 9:45 AM 04/10/20 Venous) CDT 10:14 AM CDT Narrative [facility] - 04/15/2019 10:28 AM CDT Specimen Information: Specimen ID: [id number] Specimen Type: Blood Specimen Collection Start Date: 04/10/20 ??9:45 AM Specimen Received Date: 04/10/2019 10:14 AM Specimen ID: [id number] Specimen Type: Blood Specimen Collection Start Date: 04/10/20 ??9:45 AM Specimen Received Date: 04/10/2019 10:15 AM Specimen ID: [id number] Specimen Type: Blood Specimen Collection Start Date: 04/10/20 ??9:45 AM Specimen Received Date: 04/10/2019 10:15 AM Specimen ID: [id number] Specimen Type: Blood Specimen Collection Start Date: 04/10/20 ??9:45 AM Specimen Received Date: 04/10/2019 10:14 AM Specimen ID: [id number] Specimen Type: Blood Specimen Collection Start Date: 04/10/20 ??9:45 AM Specimen Received Date: 04/10/2019 10:15 AM Specimen ID: [id number] Specimen Type: Blood Specimen Collection Start Date: 04/10/20 ??9:45 AM Specimen Received Date: 04/10/2019 10:36 AM Deanne Fisher APRN, C.N.P., M.S.N. LAB BLOOD NON A DD-ON Performing Organization Address City/State/ZIP Code Phon e Number 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
--- OUTSIDE RECORDS SUMMARY | 2022-05-25 13:23 | XMS_ITS | Encounter Summary ---
:1960 Author Organization [facility] Address [address] [place] [address] Care Team Providers Name Role Phone Unavailable Primary Care Provider Unavailable Encounter Details Date Type Department Care Team Description 04/01/2019 Orders Only Division of Nephrology Steve Martínez Kidney Disease Stage 5 Glomerular Filtration Rate Less Than 15 (HCC) (Primary Dx); and Hypertension in Fracisco Garcia D.O. Complication Kidney Transplant (HCC); [place], [place] [address] [facility] Complication Dialysis Fistula Subsequent [address] [place] [phone] [phone] Social History Tobacco Use Types Packs/Day Years [...] How often do you attend holiness or druze 1 to 4 times per [...] Nicholas APRN C.N.P., D.N.P., M.S.N. [address] [place] [address] 55 [phone] (Wo rk) 07/31/2022 Lab Laboratory Medicine Tony Rubalcava M. B., ChBurke, MElvia. [address] [place] [address] [phone] (Wo rk) 07/31/2022 Lab Laboratory Medicine Tony Rubalcava M. B., ChBurke, MDebra [address] [place] [address] 55 [phone] (Wo rk) 07/31/2022 Office Visit Transplant Tony Rubalcava M.B., ChBurke, MDebra [address] [place] [address] 55 [phone] (Wo rk) 07/31/2022 Appointment Radiology Tony Rubalcava M.B., Sydnie, MDebra [address] [place] [address] [phone] (Wo rk) 08/01/2022 Office Visit Transplant Tony Rubalcava M.B., Mukund [place] [address] [place] [address] 55 [phone] (Wo rk) 08/01/2022 Clinical Support Transplant Tony Rubalcava M.B., Mukund [place] [address] [place], [place] 55 [phone] (Wo rk) documented as of this encounter Visit Diagnoses Diagnosis Chronic Kidney Disease Stage 5 Glomerula r Filtration Rate Less Than 15 (HCC) - Primary Complication Kidney Transplant (HCC) Complication Dialysis Fistula Subsequent documented in this encounter Additional Health Concerns Assessment Noted Time PHQ-9 Depression Total Score: 4 01/30/2019 12:13 PM CD T documented as of this encounter
--- OUTSIDE RECORDS SUMMARY | 2022-05-25 13:23 | XMS_ITS | Encounter Summary ---
:1960 Author Organization [facility] Address [address] [place] [address] Care Team Providers Name Role Phone Unavailable Primary Care Provider Unavailable Encounter Details Date Type Department Care Team Description 04/09/2019 Orders Only Division of Nephrology Steve Martínez ypbonillaension And Chronic Kidney Disease Stage 1 To 4 (Primary Dx); and Hypertension in Fracisco Garcia D.O. Chronic Kidney Disease Stage 5 Glomerula r Filtration Rate Less Than 15 (HCC); [place], [place] [address] [facility] Chronic Kidney Disease Stage 4 Glomerula r Filtration Rate 15-29 (HCC); [address] [place] [address] [phone] Social History Tobacco Use Types Packs/Day Years [...] Nicholas APRN, C.N.P., D.N.P., M.S.N. [address] [place] [address] 55 [phone] (Nicolas wen) 07/31/2022 Lab Laboratory Medicine Tony Rubalcava M. B., ChDaviBDavi, M.D. [address] [place] [address] 55 [phone] (Nicolas wen) 07/31/2022 Lab Laboratory Medicine Tony Rubalcava M. B., ChDaviBDavi, M.D. [address] [place] [address] 55 [phone] (Nicolas wen) 07/31/2022 Office Visit Transplant Tony Rubalcava M.B., ChDaviBDavi, M.D. [address] [place] [address] 55 [phone] (Nicolas wen) 07/31/2022 Appointment Radiology Tony Rubalcava M.B., Mukund [place] [address] [place], [place] 55 [phone] (Nicolas wen) 08/01/2022 Office Visit Transplant Tony Rubalcava M.B., Mukund [place] [address] [place], [place] 55 [phone] (Nicolas wen) 08/01/2022 Clinical Support Transplant Tony Rubalcava M.B., Mukund [place] [address] [place], [place] 55 [phone] (Nicolas wen) documented as of this encounter Results (TTE) 2D ECHO DOPPLER COLOR (04/11/2019 1:29 PM CDT) [facility] Method Time Signature Ejection Fraction 66 [...] effusion. For the complete report, see the PROnoiseL Tap[employer]wd Documents below. See PDF For Result Narrative 04/11/2019 2:04 PM CDT For the complete report, see the Z2 Documents below. Final Impressions 1. No intracardiac [...] Chronic Kidney Disease Stage 1 To 4 - Primary Chronic Kidney Disease Stage 5 Glomerula r Filtration Rate Less Than 15 (HCC) Chronic Kidney Disease Stage 4 Glomerula r Filtration Rate 15-29 (HCC) Dyspnea Hypertension And Chronic Kidney Disease Stage 1 [...]
--- OUTSIDE RECORDS SUMMARY | 2022-05-25 13:23 | XMS_ITS | Encounter Summary ---
:1960 Author Organization [facility] Address [address] [place] [address] Care Team Providers Name Role Phone Unavailable Primary Care Provider Unavailable Reason for Referral Outpatient (Routine) - Closed Specialty Diagnoses / Procedures Referred By Contact Refer red To Contact Nephrology and Diagnoses Chronic Failure Renal End Stage Renal Disease Dialysis Dependent (HCC) Deanne Fisher, [facility] Hypertension / Dialysis Fracisco WHITE.N.Donna, M.S.N. [address] [place] [address] Referral ID Status Reason Start Date Expiration Date Visits Requ ested Visits Authorized [id number] Closed 04/01/2019 03/31/2020 1 1 Scheduling Instructions Vein mapping ordered to be done prior to visit. Please try to schedule same day due to patient transportation challenges Encounter Details Date Type Department Care Team Description 04/01/2019 External Outreach Division of Deanne Fisheri c Failure Nephrology and CHRISTOPHER Bruno C.N.PDavi, Renal End Stage Hypertension in M.S.N. Renal Disease [place], [place] [address] [facility] Dialysis Dependent [address] [place], [place] (HCC) (Primary Dx) [place] [phone] [phone] Social History Tobacco Use Types Packs/Day Years [...] How often do you attend uatsdin or muslim 1 to 4 times per [...] Notes Deanne Fisher, CHRISTOPHER, C.N.P., M.S.N. - 04/01/2019 8:17 AM CDT Images from the original note were not included. SUBJECTIVE Chief complaint: Preanesthetic medical examination Surgical procedure: AV fistula versus graft placement for dialysis access Expected date of surgery: Not yet known, scheduled to meet with Vascular Surgeon April 10, 2019 Surgeon and service: Vascular surgery Ms. Wray is a 58 year old female with a history of end stage renal disease related to hypertension and in the setting of a failed renal transplant. 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 She underwent placement of a left brachiobasilic AV fistula in Dec, 2016. Unfortunately, this fistulahas recently had recurrent stenosis and thrombus, requiring multiple fistulograms and declot procedures. She underwent an attempted declot yesterday but this unfortunately unsuccessful. She is not dialyzing via a left IJ tunneled hemodialysis catheter, as her right IJ was noted to have chronic occlusion with thrombus when it was evaluated in Interventional Radiology yesterday. She now requires evaluation and possible surgery for placement of a new dialysis AV fistula versus graft. I am seeing her today at the [facility] outpatient dialysis unit. She is overall doing well. She feels well and denies shortness of breath, chest pain, chest pressure, and palpitations. She can climb multiple flights of stairs without difficulty. OBJECTIVE LABS (from [facility]): VITALS (post dialysis April 01, 2019): Blood pressure: 134/70 Weight: 100.1 kg Stress echocardiogram (January 28, 2019): Final Impressions 1. Dobutamine stress echocardiogram negative for myocardial ischemia. 2. A peak heart rate of 127 BPM was achieved (79 % age-predicted maximal HR). 3. Ejection fraction response from 60 % at rest to 75 % at peak stress. 4. Left ventricular end-systolic volume decreased with stress. 5. No regional wall motion abnormalities with stress. Chest x-ray (January 28, 2019): IMPRESSION: No change since 09/11/2017. Old healed left rib fracture. Aortic calcification. Chest otherwise negative. 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 Mallampati score: Class 2 No shortness of breath, chest pain, chest pressure, palpitations. Able to climb stairs without difficulty. Previously tolerated anesthesia well without complications. Ms. Wray is medically optimized for surgery as of today, April 01, 2019 and ok for general anesthesia. Addendum (April 02, 2019 3109): Please see my note dated today regarding the events Ms. Wray experienced during dialysis today.We will now need to review her thrombophilia labs prior to clearing her for anesthesia. She will have these labs drawn at [facility] on April 04, which will hopefully allow time for them to resultand be reviewed prior to her access appointments on April 10. documented in this encounter Plan of Treatment Upcoming Encounters Date Type Specialty Care Team Description 06/01/2022 Telemedicine Pharmacy An Nicholas APRN, C.N.Donna, D.N.P., M.S.N. [address] [place] [address] 55 [phone] (Wo rk) 07/31/2022 Lab Laboratory Medicine Tony Rubalcava M. B., Sydnie, MDebra [address] [place] [address] 55 [phone] (Wo rk) 07/31/2022 Lab Laboratory Medicine Tony Rubalcava M. B., Sydnie, MDebra [address] [place] [address] 55 [phone] (Wo rk) 07/31/2022 Office Visit Transplant Tony Rubalcava M.B., ChBurke, MDebra [address] [place] [address] 55 [phone] (Wo rk) 07/31/2022 Appointment Radiology Tony Rubalcava M.B., Sydnie, MDebra [address] [place] [address] 55 [phone] (Wo rk) 08/01/2022 Office Visit Transplant Tony Rubalcava M.B., SydnieMukund [address] [place] [address], [place] 55 [phone] (Wo rk) 08/01/2022 Clinical Support Transplant Tony Rubalcava M.B., Mukund [place] 200 [place], [place] 55 [phone] (Wo rk) Scheduled Referrals Name Type Priority Associated Order Schedule Diagnoses Dialysis - Outpatient Referral Routine Chronic Failure Expec rebecca: Hemodialysis access Renal End Stage 04/01 consult (clinic) Renal Disease (Approxima te), Dialysis Dependent Expires: (HCC) 04/01/2022 documented as of this encounter Visit Diagnoses Diagnosis Chronic Failure Renal End Stage Renal Di sease Dialysis Dependent (HCC) - Primary documented in this encounter Additional Health Concerns Assessment Noted Time PHQ-9 Depression Total Score: 4 01/30/2019 12:13 PM CD T documented as of this encounter
--- OUTSIDE RECORDS SUMMARY | 2022-05-25 13:23 | XMS_ITS | Encounter Summary ---
:1960 Author Organization [facility] Address [address] [place] [address] Care Team Providers Name Role Phone Unavailable Primary Care Provider Unavailable Encounter Details Date Type Department Care Team Description 03/31/2019 Hospital Encounter Department of Josr Martínez Jr., D.ODavi [address] [place] [phone] Complication Dialysis Fistula Subsequent ; Radiology in Terry Kingsley M.D. [address] [place] [phone] Chronic Kidney Disease Stage 5 Glomerula r Filtration Rate Less Than 15 (HCC) Antonio Hernandez Kristin A, M.D. [facility] [place] [id number] [address] [address] [place] [address] Social History Tobacco Use Types [...] How often do you attend hoahaoism or roman catholic 1 to 4 times [...] Sign Reading Time Taken Comments Blood Pressure 188/101 03/31/2019 2:55 PM CDT Pulse 67 03/31/2019 2:55 PM CDT Temperature - - Respiratory Rate 23 03/31/2019 2:40 PM CDT Oxygen Saturation 97% 03/31/2019 2:55 PM CDT Inhaled Oxygen Concentration - - Weight 101 kg (223 lb 8.7 oz) 03/31/2019 12:02 PM CDT Height - - Body Mass Index 38.03 02/06/2019 9:59 AM CDT documented in this encounter Medications at Time of Discharge Medication Sig Dispensed Refills Start Date End Date hydrocortisone Apply 1 application 0 09/18/2017 (for_HYTONE) 2.5 % topically daily as cream needed (Eczema). nebivolol (BYSTOLIC) 10 Take 1 tablet (10 mg 90 tablet 3 09/02/2019 mg tabletIndications: total) by mouth Transplant Renal (HCC) daily. B complex Take 1 tablet by 0 06/13/2017 05/31/20 19 [id number]-zinc mouth daily. (DIALYVITE) [phone] hp-cb-dus-mg tablet ciprofloxacin (CIPRO) Take 1 tablet by [...] break, cut, or open capsules. predniSONE (DELTASONE) Take 1 tablet (5 mg [...] with stent). documented as of this encounter H&P Notes Gino Freeman Admin Closure - 03/31/2019 3:11 PM CDT Administrative Closure: This record is being filed as incomplete for a missing H&P. [employer] Information [employer] documented in this encounter Procedure Notes Ranjana Alvarez M.D. - 03/31/2019 2:44 PM CDT IMMEDIATE POST-PROCEDURE NOTE IR Dialysis / High Flow Catheter Placement tunneled, ready for use. Attempt for fistula declot, but unable to pass a wire by the clot, as clot was hard. Recommend surgical consultation. Surgeon(s): Terry Kingsley M.D. Anesthesia Type: Moderate sedation. Pre-Operative Diagnosis: Cloted again, may need Cath Specimens: None Lines, Drains and Airways: Peripheral IV Catheter 03/31/19 (Active) Hemodialysis Catheter Permanent (tunneled, implanted) Left Chest (Active) Retired (Do not use) Hemodialysis AV Access Right AV Fistula (Active) Hemodialysis AV Access Left AV Fistula (Active) [REMOVED] Peripheral IV Catheter 03/26/18 22 G Right Hand (Removed) [REMOVED] Peripheral IV Catheter 05/14/18 22 G Right Hand (Removed) [REMOVED] Peripheral IV Catheter 07/02/18 20 G Right Forearm (Removed) [REMOVED] Peripheral IV Catheter 09/05/18 22 G Right Hand (Removed) [REMOVED] Peripheral IV Catheter 10/25/18 20 G Right Forearm (Removed) [REMOVED] Peripheral IV Catheter 12/03/18 20 G Right Hand (Removed) [REMOVED] Peripheral IV Catheter 12/26/18 22 G Right Hand (Removed) [REMOVED] Peripheral IV Catheter 01/28/19 22 G Right Wrist (Removed) [REMOVED] Peripheral IV Catheter 02/10/19 20 G Right Wrist (Removed) [REMOVED] Peripheral IV Catheter 02/11/19 22 G Right Wrist (Removed) [REMOVED] Peripheral IV Catheter 03/28/19 22 G Right Hand (Removed) [REMOVED] Percutaneous Access Site (Removed) [REMOVED] Puncture 03/26/18 Arm access site for fistulagram (Removed) [REMOVED] Hemodialysis Catheter Permanent (tunneled, implanted) Right Chest (Removed) [REMOVED] Hemodialysis AV Access Left AV Fistula (Removed) Estimated Blood Loss: None Implants: None Medications: Intra-op Medications Date/Time Order Dose Route Action Action by 03/31/2019 1428 fentaNYL injection 25 mcg (SUBLIMAZE) 25 mcg intravenous Given [facility], 03/31/2019 1427 fentaNYL injection 25 mcg (SUBLIMAZE) 25 mcg intravenous Given [facility], 03/31/2019 1416 fentaNYL injection 25 mcg (SUBLIMAZE) 25 mcg intravenous Given [facility], 03/31/2019 1404 fentaNYL injection 25 mcg (SUBLIMAZE) 25 mcg intravenous Given [facility], 03/31/2019 1349 fentaNYL injection 25 mcg (SUBLIMAZE) 25 mcg intravenous Given [facility], 03/31/2019 1340 fentaNYL injection 25 mcg (SUBLIMAZE) 25 mcg intravenous Given [facility], 03/31/2019 1336 fentaNYL injection 25 mcg (SUBLIMAZE) 25 mcg intravenous Given [facility], 03/31/2019 1427 midazolam (PF) injection 0.5 mg (VERSED) 0.5 mg intravenous Given [facility] 03/31/2019 1417 midazolam (PF) injection 0.5 mg (VERSED) 0.5 mg intravenous Given [facility] 03/31/2019 1404 midazolam (PF) injection 0.5 mg (VERSED) 0.5 mg intravenous Given [facility], 03/31/2019 1349 midazolam (PF) injection 0.5 mg (VERSED) 0.5 mg intravenous Given [facility], 03/31/2019 1342 midazolam (PF) injection 0.5 mg (VERSED) 0.5 mg intravenous Given [facility] 03/31/2019 1340 midazolam (PF) injection 0.5 mg (VERSED) 0.5 mg intravenous Given [facility] 03/31/2019 1336 midazolam (PF) injection 0.5 mg (VERSED) 0.5 mg intravenous Given [facility], 03/31/2019 1341 ceFAZolin injection 2,000 mg (ANCEF) 2,000 mg intravenous Given [facility], Jade Alvarez M.D. documented in this encounter Plan of Treatment Upcoming Encounters Date Type Specialty Care Team Description 06/01/2022 Telemedicine Pharmacy An Nicholas APRN, C.N.P., D.N.P., M.S.N. [address] [place] [address] [phone] (Nicolas rk) 07/31/2022 Lab Laboratory Medicine Tony Rubalcava M. B., Sydnie, MDebra [address] [place] [address] [phone] (Wo rk) 07/31/2022 Lab Laboratory Medicine Tony Rubalcava M. B., Sydnie, Mukund [address] [place] [address] [phone] (Nicolas wen) 07/31/2022 Office Visit Transplant Tony Rubalcava M.B., Sydnie, Mukund [address] [place] [address] [phone] (Nicolas wen) 07/31/2022 Appointment Radiology Tony Rubalcava M.B., Sydnie, MDebra [address] [place] [address] [phone] (Nicolas wen) 08/01/2022 Office Visit Transplant Tony Rubalcava M.B., ChBurke, MDebra [address] [place] [address] [phone] (Nicolas wen) 08/01/2022 Clinical Support Transplant Tony Rubalcava M.B., Sydnie, MDebra [address] [place] [address] [phone] (Nicolas wne) documented as of this encounter Procedures Procedure Name Priority Date/Time Associated Comments Diagnosis IR DIALYSIS / RAD - Routine 03/31/2019 2:45 Complication Results fo r this HIGH FLOW (most inpatients PM CDT Dialysis Fistula procedu re are in CATHETER and all Subsequent the results PLACEMENT outpatients) Chronic Kidney section. Disease Stage 5 Glomerular Filtration Rate Less Than 15 (HCC) documented in this encounter Results IR Dialysis / High Flow Catheter Placement (03/31/2019 2:45 PM CDT) Anatomical Region Laterality Modality Body, Vascular Interventional RST LOS, Vascular N/A X-Ray Angiography Interventional ARZ LOS, Vascular Interventional FLA LOS Specimen (Source) Anatomical Collection Method Collection Time Re ceived Time Location / / Volume Laterality 03/31/2019 4:00 PM CDT Impressions 03/31/2019 5:26 PM CDT 1. Placement of a left IJ tunneled dialysis catheter. Catheter tip in satisfactory position in the region the SVC/right atrial junction. ??Ready for use. 2. Very firm thrombus within the thrombo sed left upper extremity brachiobasilic fistula precluded declotting using endov ascular technique. Recommend surgical consultation. EP Narrative 03/31/2019 5:26 PM CDT EXAM: IR DIALYSIS / HIGH FLOW CATHETER PLACEMENT CLINICAL HISTORY: Thrombosed left brachi obasilic fistula, request for fistula declot and placement of a tunneled dialy sis catheter. 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 The left in ternal jugular vein was widely patent. The left neck, chest, and left upper ext remity were prepped and draped in the usual sterile fashion. Using 1 percent l idocaine for local anesthesia, and under direct ultrasound guidance, access was g ained into a patent left internal jugular vein. A permanent image was stor ed. A microwire was advanced to the appropriate level, and used to measure t he intravascular length. Under local anesthesia, a 28 cm cuff to tip Palindro me catheter was tunneled from a left chest entry site up to the puncture site where it was advanced down the SVC through a peel-away sheath. Both lumens aspirated and flushed easily and were filled with 4 percent citrate solution a nd capped. The catheter wings were secured to the skin with 2-0 Prolene sut ures. Puncture site was closed with subcuticular 4-0 Vicryl. Sterile dressin gs applied. Attention was then turned to the occlude d left brachiobasilic fistula. The tissues surrounding the fistula were fir m, tender, and warm. ??Under ultrasound guidance and local anesthesia, the throm bosed basilic vein was punctured retrograde. A permanent image was create d and stored. The thrombus was so solid that we were unable pass a guidewire. At tempts at declotting the fistula were abandoned. For placement of this central venous acc [...] intra-procedural sedation time was: 31 m inutes. Estimated blood loss: minimal. Procedure Note Terry Kingsley M.D. - 03/31/2019Formatt ing of this note might be different from the original. EXAM: IR DIALYSIS / HIGH FLOW CATHETER P LACEMENT CLINICAL HISTORY: Thrombosed left brachi obasilic fistula, request for fistula declot and placement of a tunneled dialy sis catheter. 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 The left in ternal jugular vein was widely patent. The left neck, chest, and left upper ext remity were prepped and draped in the usual sterile fashion. Using 1 percent l idocaine for local anesthesia, and under direct ultrasound guidance, access was g ained into a patent left internal jugular vein. A permanent image was stor ed. A microwire was advanced to the appropriate level, and used to measure t he intravascular length. Under local anesthesia, a 28 cm cuff to tip Palindro me catheter was tunneled from a left chest entry site up to the puncture site where it was advanced down the SVC through a peel-away sheath. Both lumens aspirated and flushed easily and were filled with 4 percent citrate solution a nd capped. The catheter wings were secured to the skin with 2-0 Prolene sut ures. Puncture site was closed with subcuticular 4-0 Vicryl. Sterile dressin gs applied. Attention was then turned to the occlude d left brachiobasilic fistula. The tissues surrounding the fistula were fir m, tender, and warm. Under ultrasound guidance and local anesthesia, the throm bosed basilic vein was punctured retrograde. A permanent image was create d and stored. The thrombus was so solid that we were unable pass a guidewire. At tempts at declotting the fistula were abandoned. For placement of this central venous acc [...] intra-procedural sedation time was: 31 m inutes. Estimated blood loss: minimal. IMPRESSION: 1. Placement of a left IJ tunneled dialy sis catheter. Catheter tip in satisfactory position in the region the SVC/right atrial junction. Ready for use. 2. Very firm thrombus within the thrombo sed left upper extremity brachiobasilic fistula precluded declotting using endov ascular technique. Recommend surgical consultation. EP Brody Rasheed Jr. IR PROCEDURES documented in this encounter Visit Diagnoses Diagnosis Complication Dialysis Fistula Subsequent Chronic Kidney Disease Stage 5 Glomerula r Filtration Rate Less Than 15 (HCC) documented in this encounter Administered Medications Inactive Administered Medications - up to 3 most recent administrations Medication Order MAR Action Action Date Dose Rate Site ceFAZolin injection 2,000 mg Given 03/31/2019 1:41 PM CDT 2,000 mg (ANCEF) 2,000 mg (rounded from 2,525 mg = 25 mg/kg ? 101 kg Dosing weight), intravenous, Once, On Sun03/31/19 at 1345, For 1 dose, Intraprocedure (RAD), Preoperatively within one hour of incision. Adminster IV push over 3 minutes. Add 5 mL NS to 1 gram vial for a final concentration of 200 mg/mL., Indications: Prophylaxis, surgical fentaNYL injection 25 mcg (SUBLIMAZE) Given 03/31/2019 2:28 PM CDT 25 mcg 25 mcg, intravenous, Every 2 min PRN, sedation, or pain before and during sedation procedure, Starting on Sun03/31/19 at 1335, Intraprocedure (RAD), Administer over 1 minute immediately prior to the procedure. May repeat every 2 minutes to a maximum of 200 mcg, until pain score of 3 or less, or until the patient meets the pain comfort goal. Do not give if respiratory rate is less than 8 breaths/minute Given 03/31/2019 2:27 PM CDT 25 mcg Given 03/31/2019 2:16 PM CDT 25 mcg flumazenil injection 0.2 mg (ROMAZICON) 0.2 mg, intravenous, Once as needed, rev ersal, Starting on Sun03/31/19 at 1335, For 1 dose, Intraprocedure (RAD), Administer once if patient has a RASS score of -4, -5 and has a respiratory rate less than 8 breaths/minute. lidocaine-sodium bicarbonate 1%-8.4% inj ection Given 03/31/2019 2:37 PM CDT 20 mL infiltration, Code/trauma/sedation medication, Starting on Sun03/31/19 at 1437 midazolam (PF) injection 0.5 mg (VERSED) 0.5 mg, intravenous, Once as needed, sed ation, Starting on Sun03/31/19 at 1335, For 1 dose, Intraprocedure (RAD) midazolam (PF) injection 0.5 mg (VERSED) Given 03/31/2019 2:27 PM CDT 0.5 mg 0.5 mg, intravenous, Every 2 min PRN, sedation, RASS -1, Starting on Sun03/31/19 at 1335, Intraprocedure (RAD), May repeat every 2 minutes for a maximum of 5 mg. Do not give if respiratory rate is less than 8 breaths/minute. Given 03/31/2019 2:17 PM CDT 0.5 mg Given 03/31/2019 2:04 PM CDT 0.5 mg NaCl 0.9% infusion 20 mL/hr, intravenous, Once as needed, t o keep vein open, Starting on Sun03/31/19 at 1335, For 1 dose, Intraprocedure (RAD) naloxone injection 0.2 mg (NARCAN) 0.2 mg, intravenous, Once as needed, respiratory depre ssion, Starting on Sun03/31/19 at 1335, For 1 dose, Intraproced ure (RAD), Administer once if patient has a RASS score of -4, -5 and has a respiratory rate less t simpson 8 breaths/minute. sodium chloride 0.9 % injection 10 mL 10 mL, intravenous, As needed, line care, Starting on Sun03/31/19 at 1335, Intraprocedure (RAD), Peripheral Intrave nous Catheter and Rapid Infusion Catheter, prior to blood sampling, post blood transfusion or pos t blood sampling sodium chloride 0.9 % injection 3 mL 3 mL, intravenous, As needed, line care, Starting on M on 03/31/19 at 1335, Intraprocedure (RAD), Prior to and following infusion and between multiple consecutive infusions: sodium chloride 0.9 % injection sodium chloride 0.9 % injection 3 mL 3 mL, intravenous, Every 12 hours scheduled, First dos e on Sun03/31/19 at 2100, Intraprocedure (RAD), Peripheral Intrave nous Catheter and Rapid Infusion Catheter, when no infusion to maintain patency sodium citrate injection Given 03/31/2019 2:29 PM CDT 6 mL Code/trauma/sedation medication, Starting on Sun03/31/19 at 1429 documented in this encounter Active and Recently Administered Medications Times are shown in CDT. Scheduled Medication Order 03/29/2019 03/30/2019 03/31/2019 ceFAZolin injection 2,000 mg (ANCEF) (COMPLETED) 1341 (Given - Provider: Evelyn Fernandez R.N.) 2,000 mg (rounded from 2,525 mg = 25 mg/ kg ? 101 kg Dosing weight), intravenous, Once, On Sun03/31/19 at 1345, For 1 dose, Intraprocedure (RAD), Preoperatively within one hour of incision. Adminster IV push over 3 minutes. Add 5 mL NS to 1 g selene vial for a final concentration of 200 mg/mL., Indications: Prophylaxis, surgical sodium chloride 0.9 % injection 3 mL 3 mL, intravenous, Every 12 hours schedu led, First dose on Sun03/31/19 at 2100, Intraprocedure (RAD), Peripheral Intravenous Catheter and Rapid Infusion Catheter, when no infusion to maintain patency PRN Medication Order 03/29/2019 03/30/2019 03/31/2019 fentaNYL injection 25 mcg (SUBLIMAZE) 1336 (Given - Provider: Evelyn Fernandez R.N.)1340 (Given - Provider: Ann CampN.)1349 (Given - Provider: Ann CampN.)1404 (Given - Provider: Ann CampN.)1416 (Given - Provider: Ann CampNDavi) 25 mcg, intravenous, Every 2 min PRN, se dation, or pain before and during sedation procedure, Starting on Sun03/31/19 at 1335, Intraprocedure (RAD), Administer over 1 minute immediately prior to the pro 1427 (Given - Provider: Ann CampN.)1428 (Given - Provider: Evelyn Fernandez R.N.) cedure. May repeat every 2 minutes to a maximum of 200 mcg, until pain score of 3 or less, or until the patient meets the pain comfort goal. Do not give if respiratory rate is less than 8 breaths/minute flumazenil injection 0.2 mg (ROMAZICON) 0.2 mg, intravenous, Once as needed, rev ersal, Starting on Sun03/31/19 at 1335, For 1 dose, Intraprocedure (RAD), Administer once if patient has a RASS score of -4, -5 and has a respiratory rate less than 8 breaths/minute. lidocaine-sodium bicarbonate 1%-8.4% injection (COMPLETED) 1437 (Given - Provider: Terry Kingsley M.D.) infiltration, Code/trauma/sedation medication, Starting on M on 03/31/19 at 1437 midazolam (PF) injection 0.5 mg (VERSED) 0.5 mg, intravenous, Once as needed, sed ation, Starting on Sun03/31/19 at 1335, For 1 dose, Intraprocedure (RAD) midazolam (PF) injection 0.5 mg (VERSED) 1336 (Given - Provider: Evelyn Fernandez R.N.)1340 (Given - Provider: Evelyn Fernandez R.N.)1342 (Given - Provider: Ann CampN.)1349 (Given - Provider: Evelyn Fernandez R.N.)1404 (Given - Provider: Ann CampNDavi) 0.5 mg, intravenous, Every 2 min PRN, se dation, RASS -1, Starting on Sun03/31/19 at 1335, Intraprocedure (RAD), May repeat every 2 minutes for a maximum of 5 mg. Do not give if respiratory rate is less than 8 breaths/minute. 1417 (Given - Provider: Evelyn Fernandez R.N.)1427 (Given - Provider: Ann CampNDavi) NaCl 0.9% infusion 20 mL/hr, intravenous, Once as needed, t o keep vein open, Starting on Sun03/31/19 at 1335, For 1 dose, Intraprocedure (RAD) naloxone injection 0.2 mg (NARCAN) 0.2 mg, intravenous, Once as needed, res piratory depression, Starting on Sun03/31/19 at 1335, For 1 dose, Intraprocedure (RAD), Administer once if patient has a RASS score of -4, -5 and has a respiratory rate less than 8 breaths/minute. sodium chloride 0.9 % injection 10 mL 10 mL, intravenous, As needed, line care , Starting on Sun03/31/19 at 1335, Intraprocedure (RAD), Peripheral Intravenous Catheter and Rapid Infusion Catheter, prior to blood sampling, post blood transfusion or post blood sampling sodium chloride 0.9 % injection 3 mL 3 mL, intravenous, As needed, line care, Starting on Sun03/31/19 at 1335, Intraprocedure (RAD), Prior to and following infusion and between multiple consecutive infusions: sodium chloride 0.9 % injection sodium citrate injection (COMPLETED) 1429 (Given - Provider: Evelyn Fernandez R.N.) Code/trauma/sedation medication, Starting on Sun03/31/19 at 1429 documented in this encounter Additional Health Concerns Assessment Noted Time PHQ-9 Depression Total Score: 4 01/30/2019 12:13 PM CD T documented as of this encounter
--- OUTSIDE RECORDS SUMMARY | 2022-05-25 13:23 | XMS_ITS | Encounter Summary ---
:[address] [facility] Address [address] [place] [address] Care Team Providers Name Role Phone Unavailable Primary Care Provider Unavailable Reason for Visit Outpatient (Routine) - Closed Specialty Diagnoses / Procedures Referred By Contact Refer red To Contact Nephrology and Diagnoses Chronic Failure Renal End Stage Renal Disease Dialysis D[facility]) [facility] CHRISTOPHER C.N.P., M.S.N. [address] [place] [phone] Referral ID Status Reason Start Date Expiration Date Visits Requ ested Visits Authorized [id number] Closed 04/01/2019 03/31/2020 1 1 Encounter Details Date Type Department Care Team Description 04/10/2019 Comprehensive Visit Division of Vascular Deanne Fisher, CHRISTOPHER, C.N.P., M.S.N. [address] [place] [phone] Chronic Failure and Endovascular Pablo Ulloa M.D., M.S. [address] [place] [phone] Renal End Stage Surgery in Renal Disease [place], [place] Dialysis Dependent [address] [facility] [place] [phone] Social History Tobacco Use Types Packs/Day Years [...] How often do you attend adventist or yarsanism 1 to 4 times per [...] documented as of this encounter Consult Notes Pablo Ulloa M.D., M.S. - 04/10/2019 1:00 PM CDT Shabnam Wray : 1960 Visit Date: 04/10/19 Deanne Fisher APRN* SUBJECTIVE CHIEF COMPLAINT/ REASON FOR VISIT: End Stage Renal Disease and need for AV access HISTORY OF PRESENT ILLNESS: Shabnam Wray is a 58 y.o. female that presents for consultation. She has been referred for consideration of creation of permanent dialysis access. Current dialysis:yes hemodialysis Prior history of dialysis fistula:Yes. Previous left brachial basilic AV fistula. Previous right brachiocephalic AV fistula. Current dialysis via a left-sided palindrome catheter. Current Medications: ??? B complex 44-ekkzy-I-biot-zinc (DIALYVITE) [id number] ra-uw-knd-mg tablet, Take 1 tablet by mouth daily. ??? cephalexin (KEFLEX) 500 mg capsule, Take 1 capsule (500 mg total) by mouth daily for 7 days. On dialysis days, take dose after dialysis has been completed. ??? ciprofloxacin (CIPRO) 250 mg tablet, Take 1 tablet by mouth evening prior to stent exchange, 1 tablet evening of, then twice a day until gone. ??? gabapentin (NEURONTIN) 100 mg capsule, Take 2 capsules (200 mg total) by mouth 2 (two) times a day. ??? hydrocortisone (for_HYTONE) 2.5 % cream, Apply 1 application topically daily as needed. ??? lidocaine-prilocaine (EMLA) 2.5-2.5 % cream, Apply 1 application topically as directed. ??? mupirocin (BACTROBAN) 2 % ointment, Apply 1 application topically 3 (three) times a day. For 14 days (Patient not taking: Reported on 01/28/2019 ) ??? mycophenolate (CELLCEPT) 250 mg capsule, Take 1 capsule (250 mg total) by mouth 2 (two) times a day. Do not break, cut, or open capsules. ??? nebivolol (BYSTOLIC) 10 mg tablet, Take 1 tablet (10 mg total) by mouth daily. ??? predniSONE (DELTASONE) 5 mg tablet, Take 1 tablet (5 mg total) by mouth daily. ??? rosuvastatin (CRESTOR) 5 mg tablet, Take 1 tablet (5 mg total) by mouth daily. (Patient not taking: Reported on 01/28/2019 ) ??? sevelamer (RENVELA) 800 mg tablet, Take 1 tablet (800 mg total) by mouth 3 (three) times a day with meals. ??? tacrolimus (PROGRAF) 1 mg capsule, Take 2 capsules (2 mg total) by mouth 2 (two) times a day. ??? tamsulosin (FLOMAX) 0.4 mg 24 hr capsule, Take 1 capsule (0.4 mg total) by mouth daily as needed(spasm pain assoc with stent). REVIEW OF SYSTEMS: Pertinent items are noted in HPI; all other systems were reviewed per Medical History. OBJECTIVE PHYSICAL EXAM: General: Alert and oriented, no acute distress. Examination of the neck, chest, and upper extremities reveal no anatomical abnormalities. Extremities: Peripheral Vascular Pulse Exam Left Brachial: 4+ Right Radial: 4+ Ulnar: 2+ Brachial: 4+ Cordell Test Right: negative Reverse Cordell Test Right: negative DIAGNOSTIC STUDIES Ultrasound Results: Usable right basilic vein ASSESSMENT / PLAN Ms. Wray presents for evaluation of AV access. She has had a left brachial basilic and right brachiocephalic AV fistula that have gone on to thrombosis. She does not have suitable left arm vein for any new access. Her only remaining vein for use as the right basilic vein. We discussed a two-stageright brachial basilic AV fistula. We discussed risks such as bleeding, infection, need for reintervention, failure to mature, or AV steal. She is finalizing a thrombophilia workup. Pending this we canproceed with surgery. She was understanding and wished to proceed. All of her questions were answered. 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 Edited by: Brook Louie, Cargo Service Supervisor 06/09/19 2:09 PM documented in this encounter Miscellaneous Notes Addendum Note - Shania Weaver RDaviN. - 04/10/2019 1:00 PM CDT Addended by: SHANIA WEAVER on: 04/10/2019 01:51 PM Modules accepted: Orders documented in this encounter Plan of Treatment Upcoming Encounters Date Type Specialty Care Team Description 06/01/2022 Telemedicine Pharmacy An Nicholas APRN, C.N.P., D.N.P., M.S.N. [address] [place] [address] [phone] (Wo rk) 07/31/2022 Lab Laboratory Medicine Tony Rubalcava M. B., Sydnie, Mukund [address] [place] [address] [phone] (Wo rk) 07/31/2022 Lab Laboratory Medicine Tony Rubalcava M. B., Sydnie, Mukund [address] [place] [address] [phone] (Wo rk) 07/31/2022 Office Visit Transplant Tony Rubalcava M.B., Sydnie, Mukund [address] [place] [address] [phone] (Wo rk) 07/31/2022 Appointment Radiology Tony Rubalcava M.B., Sydnie, Mukund [address] [place] [address] [phone] (Wo rk) 08/01/2022 Office Visit Transplant Tony Rubalcava M.B., Sydnie, Mukund [address] [place] [address] [phone] (Wo rk) 08/01/2022 Clinical Support Transplant Tony Rubalcava M.B., Sydnie, MDebra [address] [place] [address] [phone] (Wo rk) documented as of this encounter Visit Diagnoses Diagnosis Chronic Failure Renal End Stage Renal Di sease Dialysis Dependent (HCC) documented in this encounter Additional Health Concerns Assessment Noted Time PHQ-9 Depression Total Score: 4 01/30/2019 12:13 PM CD T documented as of this encounter
--- OUTSIDE RECORDS SUMMARY | 2022-05-25 13:23 | XMS_ITS | Encounter Summary ---
:1960 Author Organization [facility] Address [address] [place] [address] Care Team Providers Name Role Phone Unavailable Primary Care Provider Unavailable Reason for Visit Reason Comments AV fistula erythema Encounter Details Date Type Department Care Team Description 04/04/2019 Documentation Division of Nephrology Deanne Fisher AV fistula erythema and Hypertension in , CHANGE CONSULTANT, C.N.P.[place], [place] M.S.N. [address] [place] [address] 200 [place] [phone] Social History Tobacco Use Types Packs/Day Years [...] How often do you attend shinto or anglican 1 to 4 times per [...] of this encounter Progress Notes Deanne Fisher APRN C.N.P., M.S.N. 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 Wray was seen today during rounds at the [facility] outpatient dialysis unit. She had a similar event again today as is described in my documentation from April 02. She recovered similarly again today. She is going to undergo lab testing today for thrombophilia assessment. Ms. Wray is also noted to have some erythema over her thrombosed left upper extremity AV fistula. She will start oral Keflex 500 mg daily for 7 days. I will reassess her arm in 1 week, when I am rounding in [place] again, to determine if there is a need for a longer course of antibiotics or a change in course. documented in this encounter Plan of Treatment Upcoming Encounters Date Type Specialty Care Team Description 06/01/2022 Telemedicine Pharmacy An Nicholas APRN, C.N.P., Michelle.N.P., M.S.N. [address] [place] [address] [phone] (Wo rk) 07/31/2022 Lab Laboratory Medicine Tony Rubalcava M. B., ChBurke, MDebra [address] [place] [address] [phone] (Wo rk) 07/31/2022 Lab Laboratory Medicine Tony Rubalcava M. B., Sydnie, MDebra [address] [place] [address] [phone] (Wo rk) 07/31/2022 Office Visit Transplant Tony Rubalcava M.B., Sydnie, MDebra [address] [place] [address] [phone] (Wo rk) 07/31/2022 Appointment Radiology Tony Rubalcava M.B., Sydnie, MDebra [address] [place] [address] [phone] (Wo rk) 08/01/2022 Office Visit Transplant Tony Rubalcava M.B., ChBurke, MDaviD. [address] [place] [address] [phone] (Wo rk) 08/01/2022 Clinical Support Transplant Tony Rubalcava M.B., ChBurke, M.D. [address] [place] [address] [phone] (Wo rk) documented as of this encounter Visit Diagnoses Not on filedocumented in this encounter Additional Health Concerns Assessment Noted Time PHQ-9 Depression Total Score: 4 01/30/2019 12:13 PM CD T documented as of this encounter
--- OUTSIDE RECORDS SUMMARY | 2022-05-25 13:23 | XMS_ITS | Encounter Summary ---
:1960 Author Organization [facility] Address [address] [place] [address] Care Team Providers Name Role Phone Unavailable Primary Care Provider Unavailable Encounter Details Date Type Department Care Team Description 04/10/2019 Hospital Encounter Department of Deanne Fisher taran Failure Radiology, Earnest Bruno APRN, C.N.PDavi, Renal E nd Stage Building, in M.S.N. Renal Disease [place], [address] [facility] Dialysis Dependent [place], [place] ([facility]) [address] [place] [phone] [place], [place] [phone] (Work) [phone] Social History Tobacco Use Types Packs/Day Years [...] How often do you attend jewish or baptist 1 to 4 times per [...] completed. acetaminophen (TYLENOL) Take 2 tablets 0 05/12/20 19 04/07/2022 500 mg tablet (1,000 mg total) by mouth every 6 (six) hours as needed for pain. B complex Take 1 tablet by 0 06/13/2017 05/31/20 19 48-zslti-Q-biot-zinc mouth daily. (DIALYVITE) [id number] bn-wa-ktg-mg tablet calcium carbonate Chew 2 tablets 2 [...] Nicholas APRN, C.N.P., D.N.P., M.S.N. [address] [place] [address] [phone] (Wo rk) 07/31/2022 Lab Laboratory Medicine Tony Rubalcava M. B., Ch.B., M.D. [address] [place] [address] [phone] (Wo rk) 07/31/2022 Lab Laboratory Medicine Tony Rubalcava M. B., Ch.B., M.D. [address] [place] [address] [phone] (Wo rk) 07/31/2022 Office Visit Transplant Tony Rubalcava M.B., Ch.B., MElvia. [address] [place] [address] [phone] (Wo rk) 07/31/2022 Appointment Radiology Tony Rubalcava M.B., Mukund [place] [address] [place] [address] [phone] (Wo rk) 08/01/2022 Office Visit Transplant Tony Rubalcava M.B., Mukund [place] [address] [place] [address] [phone] (Wo rk) 08/01/2022 Clinical Support Transplant Tony Rubalcava M.B., Mukund [place] [address] [place] [address] [phone] (Wo rk) documented as of this encounter Procedures Procedure Name Priority Date/Time Associated Comments Diagnosis US UPPER RAD - Routine 04/10/2019 9:02 Chronic Failure Results for this EXTREMITY (most inpatients AM CDT Renal End Stage procedur e are in BILATERAL and all Renal Disease the results DIALYSIS MAPPING outpatients) Dialysis section. Dependent (HCC) documented in this encounter Results US Upper Extremity Bilateral Dialysis Mapping (04/10/2019 9:02 AM CDT) Anatomical Region Laterality Modality Upper Extremity, Ultrasound RST LOS, Ultrasound ARZ LOS, Reg ateral Ultrasound Ultrasound FLA LOS Specimen (Source) Anatomical Collection Method Collection Time Re ceived Time Location / / Volume Laterality 04/10/2019 9:08 AM CDT Impressions 04/10/2019 10:31 AM CDT 1. Bilateral upper extremity dialysis mapping. 2. Right internal iliac vein nonocclusiv e thrombus, technically age-indeterminate but favored to be suba cute/chronic. 3. Occluded left brachiobasilic fistula. Old right brachiocephalic fistula with chronic post thrombotic changes in the r ight cephalic vein. Narrative 04/10/2019 10:31 AM CDT EXAM: US UPPER EXTREMITY BILATERAL DIALYSIS MAPPING Exam performed with color and spectral D oppler analysis. COMPARISON: 03/31/2019 FINDINGS: RIGHT Deep Vein Assessment: Echogenic nonocclu sive bulky thrombus in the low internal jugular vein, technically indeterminate but probably subacute/chronic. The innominate, subclavian and axillary vein s are patent and negative for thrombus. Central Arterial Assessment: Normal. ARTERIAL DIAMETERS Brachial artery: ?? 4.3 mm Radial artery: ?? 2.3 mm Ulnar artery: ?? 2.0 mm Distance from right elbow crease to brac hial artery bifurcation: 0.6cm below. CEPHALIC VEIN: Old brachiocephalic fistu la with chronic post thrombotic changes at the anastomosis (located 5 cm above t he antecubital fossa) and chronic post thrombotic changes and wall thickening o f the diminutive cephalic vein overlying the mid humerus to antecubital fossa. Th e cephalic vein is too small in the forearm. Upper humerus: ??2.8 mm Mid humerus: ??Chronic post thrombotic c hanges Lower humerus: ??Chronic post thrombotic changes Antecubital fossa: ??Chronic post thromb otic changes Upper forearm: ??1.3 mm Mid forearm: ??2.4 mm Wrist: ??2.3 mm BASILIC VEIN: Adequate in size from maria del rosario jovan to the upper forearm. Upper humerus: ?? 5.1 mm Mid humerus: 4.1 mm Lower humerus: 4.2 mm Antecubital fossa: ??3.3 mm Upper forearm: ?? 2.8 mm Mid forearm: ??2.8 mm Wrist: ??1.4 mm LEFT Deep Vein Assessment: Tunneled dialysis catheter. The internal jugular vein around the catheter, visualized innomina te, subclavian and axillary veins are patent and negative for thrombus. Central Arterial Assessment: Normal. ARTERIAL DIAMETERS Brachial artery: ?? 8.1 mm Radial artery: ? 2.4 mm Ulnar artery: ?? 2.0 mm Distance from left elbow crease to brach ial artery bifurcation: Not assessed. CEPHALIC VEIN: Not adequate. Only segmen tally visualized where it is diminutive, with a tortuous course in the upper maria del rosario jovan to antecubital fossa. Too small in the forearm. Upper forearm: ?? 1.7 mm Mid forearm: ??1.8 mm Wrist: ?? 1.9 mm BASILIC VEIN: As before, occluded brachi obasilic fistula with thrombus starting at the anastomosis extending to the axil daniel vein confluence. Perea: ( * ) = too small (<2mm) or not visualiz ed ( X ) = not examined Procedure Note Liane Newby M.B.B.S., M.D. - 04/10/20 19 EXAM: US UPPER EXTREMITY BILATERAL DIALY SIS MAPPING Exam performed with color and spectral D oppler analysis. COMPARISON: 03/31/2019 FINDINGS: RIGHT Deep Vein Assessment: Echogenic nonocclu sive bulky thrombus in the low internal jugular vein, technically indeterminate but probably subacute/chronic. The innominate, subclavian and axillary vein s are patent and negative for thrombus. Central Arterial Assessment: Normal. ARTERIAL DIAMETERS Brachial artery: 4.3 mm Radial artery: 2.3 mm Ulnar artery: 2.0 mm Distance from right elbow crease to brac hial artery bifurcation: 0.6cm below. CEPHALIC VEIN: Old brachiocephalic fistu la with chronic post thrombotic changes at the anastomosis (located 5 cm above t he antecubital fossa) and chronic post thrombotic changes and wall thickening o f the diminutive cephalic vein overlying the mid humerus to antecubital fossa. Th e cephalic vein is too small in the forearm. Upper humerus: 2.8 mm Mid humerus: Chronic post thrombotic daniele nges Lower humerus: Chronic post thrombotic c hanges Antecubital fossa: Chronic post thrombot ic changes Upper forearm: 1.3 mm Mid forearm: 2.4 mm Wrist: 2.3 mm BASILIC VEIN: Adequate in size from maria del rosario jovan to the upper forearm. Upper humerus: 5.1 mm Mid humerus: 4.1 mm Lower humerus: 4.2 mm Antecubital fossa: 3.3 mm Upper forearm: 2.8 mm Mid forearm: 2.8 mm Wrist: 1.4 mm LEFT Deep Vein Assessment: Tunneled dialysis catheter. The internal jugular vein around the catheter, visualized innomina te, subclavian and axillary veins are patent and negative for thrombus. Central Arterial Assessment: Normal. ARTERIAL DIAMETERS Brachial artery: 8.1 mm Radial artery: 2.4 mm Ulnar artery: 2.0 mm Distance from left elbow crease to brach ial artery bifurcation: Not assessed. CEPHALIC VEIN: Not adequate. Only segmen tally visualized where it is diminutive, with a tortuous course in the upper maria del rosario jovan to antecubital fossa. Too small in the forearm. Upper forearm: 1.7 mm Mid forearm: 1.8 mm Wrist: 1.9 mm BASILIC VEIN: As before, occluded brachi obasilic fistula with thrombus starting at the anastomosis extending to the axil daniel vein confluence. Perea: ( * ) = too small (<2mm) or not visualiz ed ( X ) = not examined IMPRESSION: 1. Bilateral upper extremity dialysis ma pping. 2. Right internal iliac vein nonocclusiv e thrombus, technically age-indeterminate but favored to be suba cute/chronic. 3. Occluded left brachiobasilic fistula. Old right brachiocephalic fistula with chronic post thrombotic changes in the r ight cephalic vein. Deanne Fisher APRN C.N.P., M.S.N. MALOU VILLANUEVA documented in this encounter Visit Diagnoses Diagnosis Chronic Failure Renal End Stage Renal Di sease Dialysis Dependent (HCC) documented in this encounter Additional Health Concerns Assessment Noted Time PHQ-9 Depression Total Score: 4 01/30/2019 12:13 PM CD T documented as of this encounter
--- OUTSIDE RECORDS SUMMARY | 2022-05-25 13:23 | XMS_ITS | Encounter Summary ---
:1960 Author Organization [facility] Address 200 [place] [address] Care Team Providers Name Role Phone Unavailable Primary Care Provider Unavailable Reason for Referral Specialty Diagnoses / Procedures Referred By Contact Refer red To Contact Deanne Fisher APRN, [facility] Fracisco.N.PDavi, M.S.N. 200 [place] [address] Referral ID Status Reason Start Date Expiration Date Visits Requ ested Visits Authorized Scheduling Instructions 03/31/2019 after dialysis catheter placem ent Encounter Details Date Type Department Care Team Description 03/31/2019 Orders Only Division of Nephrology Deanne Fisher hronic Failure Renal and Hypertension in CHRISTOPHER Bruno C.N.PDavi, End Stage Renal [place], [place] M.S.N. Disease Dialysis [address] [facility] [address] [facility] Dependent (HCC) [place], [place] (Primary Dx) [phone] Social History Tobacco Use Types Packs/Day Years [...] How often do you attend scientologist or restoration 1 to 4 times per [...] Nicholas APRN, C.N.P., D.N.P., M.S.N. [address] [place] [address] [phone] (Wo rk) 07/31/2022 Lab Laboratory Medicine Tony Rubalcava M. B., Ch.B., M.Michelle. [address] [place] [address] [phone] (Wo rk) 07/31/2022 Lab Laboratory Medicine Tony Rubalcava M. B., Ch.B., M.D. [address] [place] [address] [phone] (Wo rk) 07/31/2022 Office Visit Transplant Tony Rubalcava M.B., Sydnie, MDebra [address] [place] [address] [phone] (Wo rk) 07/31/2022 Appointment Radiology Tony Rubalcava M.B., Sydnie, Mukund [address] [place] [address] [phone] (Wo rk) 08/01/2022 Office Visit Transplant Tony Rubalcava M.B., Sydnie, MDebra [address] [place] [address] [phone] (Wo rk) 08/01/2022 Clinical Support Transplant Tony Rubalcava M.B., Sydnie, MDebra [address] [place] [address] [phone] (Wo rk) Scheduled Referrals Name Type Priority Associated Order Schedule Diagnoses Hemodialysis Outpatient Routine Chronic Failure 1 Occurrence s Transient; Referral Renal End Stage starting 07/2019 Renal Disease until 03/31/20 22 Dialysis Dependent (HCC) documented as of this encounter Visit Diagnoses Diagnosis Chronic Failure Renal End Stage Renal Di sease Dialysis Dependent (HCC) - Primary documented in this encounter Additional Health Concerns Assessment Noted Time PHQ-9 Depression Total Score: 4 01/30/2019 12:13 PM CD T documented as of this encounter
--- OUTSIDE RECORDS SUMMARY | 2022-05-25 13:23 | XMS_ITS | Encounter Summary ---
:1960 Author Organization [facility] Address [address] [place] [address] Care Team Providers Name Role Phone Unavailable Primary Care Provider Unavailable Encounter Details Date Type Department Care Team Description 03/31/2019 Documentation Division of Nephrology and Samuel Fortune, Hypertension in [facility] [address] [facility] 200 [place] [phone] Social History Tobacco Use Types Packs/Day Years [...] How often do you attend mandaen or gnosticist 1 to 4 times per [...] encounter Progress Notes Juliana Fortune R.N. - 03/31/2019 4:00 PM CDT I called this patient when she did not show to [facility] for her dialysis treatment. She told me she would dialyze in the am in [place]. She told me she is about 2.5 kg over her dry weight and knows to avoid K+ foods until her next dialysis. I reminded her that Dr. Martínez wanted her to get a couple hours of dialysis today and she said she knew that but wanted to go home. documented in this encounter Plan of Treatment Upcoming Encounters Date Type Specialty Care Team Description 06/01/2022 Telemedicine Pharmacy An Nicholas APRN C.N.P., D.N.P., M.S.N. [address] [place] [address] [phone] (Nicolas wen) 07/31/2022 Lab Laboratory Medicine Tony Rubalcava M. B., Ch.B., MDebra [address] [place] [address] [phone] (Nicolas wen) 07/31/2022 Lab Laboratory Medicine Tony Rubalcava M. B., Ch.B., M.Michelle. [address] [place] [address] 55 [phone] (Nicolas wen) 07/31/2022 Office Visit Transplant Tony Rubalcava M.B., Sydnie, Mukund [address] [place] [address] [phone] (Wo rk) 07/31/2022 Appointment Radiology Tony Rubalcava M.B., Sydnie, Mukund [address] [place] [address] [phone] (Wo rk) 08/01/2022 Office Visit Transplant Tony Rubalcava M.B., Sydnie, Mukund [address] [place] [address] [phone] (Wo rk) 08/01/2022 Clinical Support Transplant Tony Rubalcava M.B., Sydnie, Mukund [address] [place] [address] [phone] (Wo rk) documented as of this encounter Visit Diagnoses Not on filedocumented in this encounter Additional Health Concerns Assessment Noted Time PHQ-9 Depression Total Score: 4 01/30/2019 12:13 PM CD T documented as of this encounter
--- OUTSIDE RECORDS SUMMARY | 2022-05-25 13:23 | XMS_ITS | Encounter Summary ---
:1960 Author Organization [facility] Address [address] [place] [address] Care Team Providers Name Role Phone Unavailable Primary Care Provider Unavailable Encounter Details Date Type Department Care Team Description 04/02/2019 Clinical Communication Division of Nephrology Deanne Fisher and Hypertension in , RENTAL SALES ASSOCIATE, C.N.P.[place], [place] M.S.N. 200 [facility] [place] 200 [place] [address] [phone] Social History Tobacco Use Types Packs/Day Years [...] How often do you attend nondenominational or bahai 1 to 4 times per [...] - Deanne Fisher APRN, C.N.P., M.S.N. - 04/02/2019 9:02 AM CDT #1 End stage renal disease related to hypertensive nephrosclerosis, maintained on incenter hemodialysis #2 Acute shortness of breath, improved #3 Acute hypoxia during dialysis, improved #4 Intradialytic hypotension #5 Thrombosed left upper extremity AV fistula #6 Chronic right IJ thrombus, per ultrasound by Interventional Radiology March 31, 2019 I was contacted by Ms. Shae Quinn RN from the [facility] outpatient dialysis unit regarding Ms. Wray this morning. Ms. Wray presented to dialysis this morning feeling well and with no concerns. I actually saw her at [facility] yesterday and she was doing relatively well, aside from some tenderness over the site of her thrombosed AV fistula and new tunneled dialysis catheter. Initially, I received an email from Kai with the following information: She was 5kg over her TW when she came in yesterday , we pulled 2.8kg and she tolerated that fine, no issues with her CVC. Today she was 2.2 above her TW and her BP dropped from 164/100 to 95/53 after about an hour of tx. I shut her UF off and gave her 200 cc. It came back up to 102 systolic but she'sfeeling SOB and has an intermittent headache. She refused O2 at first but her sats were 82% so I puther on 2L NC and it came up to 88%. She's laying back but then c/o burning at her CVC site. Her art pressure was high, 230's, we flushed her with NS and they improved to 170's-200. We then spoke via telephone call soon thereafter. Unfortunately, the dialysis catheter began having additional arterial pressure alarms. She continued to have oxygen saturations in the 88-90% range on 2 L of oxygen via nasal canula and was still complaining of shortness of breath as well as headache. No chest pain or pressure. Fortunately, her blood pressures had continued to improve into hte 110s systolic. We discussed having her sent via ambulance to the [place] emergency department for imagining and evaluation to rule out pulmonary embolism, particularly in the setting of known clot burden. She is adamantly opposed to transfer to the Emergency Department and requested to continue her dialysis. I was able to speak with Ms. Quinn multiple times throughout the duration of Ms. Wray's dialysis session. She did not have any worsening symptoms, and ultimately actually improved. At the end ofher dialysis session, she reported feeling much improved. Her oxygen saturations were noted to be 96% on room air. Ms. Wray still prefers to avoid evaluation in the emergency department. As she is feeling improved and has improved from a hemodynamic standpoint, we discussed the need to seek emergent medical attention if she were to develop similar symptoms as today or if she developed chest pain/pressure. Maria Luzs expressed understanding. In the setting of several known areas of clot recently, including multiple events of thrombosis of her dialysis fistula, we will go ahead and plan to proceed with a thrombophilia work up. She has agreed to have this done at the [facility] in [place] on April 04. documented in this encounter Plan of Treatment Upcoming Encounters Date Type Specialty Care Team Description 06/01/2022 Telemedicine Pharmacy An Nicholas APRN, C.NDoc, Michelle.N.P., M.S.N. [address] [place] [address] [phone] (Wo rk) 07/31/2022 Lab Laboratory Medicine Tony Rubalcava M. B., Sydnie, Mukund [address] [place] [address] [phone] (Wo rk) 07/31/2022 Lab Laboratory Medicine Tony Rubalcava M. B., Sydnie, Mukund [address] [place] [address] [phone] (Wo rk) 07/31/2022 Office Visit Transplant Tony Rubalcava M.B., Sydnie, Mukund [address] [place] [address] [phone] (Wo rk) 07/31/2022 Appointment Radiology Tony Rubalcava M.B., Sydnie, Mukund [address] [place] [address] [phone] (Wo rk) 08/01/2022 Office Visit Transplant Tony Rubalcava M.B., Sydnie, Mukund [address] [place] [address] [phone] (Wo rk) 08/01/2022 Clinical Support Transplant Tony Rubalcava M.B., Sydnie, Mukund [address] [place] [address] [phone] (Wo rk) documented as of this encounter Results Thrombophilia Profile (04/04/2019 10:20 AM CDT) [facility] Method Time Signature Prothrombin Time CANCELED 04/07/2019 (PT), P 3:32 PM CDT Comment: Result canceled by the seb hare INR CANCELED 04/07/2019 3:32 PM CDT Comment: Result canceled by the seb hare Activated Partial Thrombopl Time, P CANCELED 03/20 3:32 PM CDT Comment: Result canceled by the ancillar y. DRVVT Screen Ratio CANCELED 04/07/2019 3:32 PM CD T Comment: Result canceled by the ancillar y. Thrombin Time (Bovine), P CANCELED 04/07/2019 3:3 2 PM CDT Comment: ----ADDITIONAL INFORMATION---- This test has been modified from the [employer] [employer]'s instructions. Its performance characteri stics were determined by [facility] in a manner co nsistent with CLIA requirements. This test has not bee n cleared or approved by the U.S. Food and Drug Admin istration. Result canceled by the ancillary. Fibrinogen, P CANCELED 200 - 430 mg/dL 04/07/2019 3:32 PM C DT Comment: REVISED RESULTS ----ADDITIONAL INFORMATION---- This test has been modified from the [employer] [employer]'s instructions. Its performance characteri stics were determined by [facility] in a manner co nsistent with CLIA [...] by [facility] in a manner co nsistent with CLIA requirements. This test has not bee n cleared or approved by the U.S. Food and Drug Admin istration. Result canceled by the ancillary. Antithrombin Activity, P CANCELED 80 - 130 % 04/07/2019 3:3 2 PM CDT Comment: REVISED RESULTS ----ADDITIONAL INFORMATION---- This test has been modified from the [employer]'s instructions. Its performance characteri stics were determined by [facility] in a manner co nsistent with CLIA requirements. This test has not bee n cleared or approved by the U.S. Food and Drug Admin istration. ----PREVIOUSLY REPORTED ---- 103, Flagged as: Normal (Reported 04/05/2019 10:16) Protein C Activity, P CANCELED 04/07/2019 3:32 PM CDT Comment: ----ADDITIONAL INFORMATION---- This test has been modified from the [facility] instructions. Its performance characteri stics were determined by [facility] in a manner co nsistent with CLIA requirements. This test has not bee n cleared or approved by the U.S. Food and Drug Admin istration. Result canceled by the ancillary. Protein S Ag, Free, P CANCELED 65 - 160 % 04/07/2019 3:32 P M CDT Comment: REVISED RESULTS ----ADDITIONAL INFORMATION---- This test has been modified from the [facility] instructions. Its performance characteri stics were determined by [facility] in a manner co nsistent with CLIA [...] Result canceled by the ancillar y. Prothrombin [id number] Mutation, B CANCELED Negative 04/07/20 3:32 PM [...] 7:22 Venous) AM CDT AM CDT Narrative [facility] - [facility] - 04/07/2019 3:32 PM CDT Thrombophilia Prof was cancelled on 04/07/2019 at 15:32; Specimen clotted. !CNCL! Specimen Information: Specimen ID: [id number] Specimen Type: Blood Specimen Collection Start Date: 04/04/20 10:20 AM Specimen Received Date: 04/05/2019 ??7:2 2 AM Specimen ID: [id number] Specimen Type: Blood Specimen Collection Start Date: 04/04/20 10:20 AM Specimen Received Date: 04/05/2019 ??7:2 2 AM Specimen ID: [id number] Specimen Type: Blood Specimen Collection Start Date: 04/04/20 10:20 AM Specimen Received Date: 04/05/2019 ??7:2 2 AM Specimen ID: [id number] Specimen Type: Blood Specimen Collection Start Date: 04/04/20 10:20 AM Specimen Received Date: 04/05/2019 ??7:2 2 AM Specimen ID: [id number] Specimen Type: Blood Specimen Collection Start Date: 04/04/20 10:20 AM Specimen Received Date: 04/05/2019 ??7:2 2 AM Specimen ID: [id number] Specimen Type: Blood Specimen Collection Start Date: 04/04/20 10:20 AM Specimen Received Date: 04/05/2019 ??9:2 2 AM Milli Bangura APRNN.Nela., M.S.N. LAB BLOOD NON A DD-ON Performing Organization Address City/State/ZIP Code Phon e Number [facility] - [address] [place] [address] 05 [facility] Phospholipid (Cardiolipin) Antibodies, IgG and IgM (04/04/2019 10:19 AM CDT) P athologist Signature Phospholipid Ab <9.4 <15.0 04/05/2019 [...] LAB BLOOD ADD-O N Performing Organization Address [facility] Phon e Number [address] [place] [address] [facility] Beta-2 Glycoprotein 1 Antibodies, [...] LAB BLOOD ADD-O N Performing Organization Address [facility] Phon e Number [address] [place] [address] [facility] CBC with Differential, Blood [...] 04/04/2019 Venous) AM CDT 10:20 AM CDT Deanne Fisher APRN C.N.P., M.S.N. 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
--- OUTSIDE RECORDS SUMMARY | 2022-05-25 13:23 | XMS_ITS | Encounter Summary ---
:1960 Author Organization [facility] Address [address] [place] [address] Care Team Providers Name Role Phone Unavailable Primary Care Provider Unavailable Encounter Details Date Type Department Care Team Description 04/01/2019 Documentation Division of Nephrology and Josr Martínez Hypertension in [place], ., D.O. [place] [address] [facility] 200 [place] [phone] [phone] (Wo rk) Social History Tobacco Use Types [...] How often do you attend restorationist or mosque 1 to 4 times per [...] Progress Notes Steve Martínez Jr., D.O. - 04/01/2019 8:46 AM CDT Note events of yesterday, hard thrombosis of L UE AVF. TDC placed. I will ask for mapping and surgical appointment for possible AVF. She had previously failed PD on the background of poor dialysis delivery, perhaps we need to re-address this. I also wonder about the possibility of a graft. She is receiving HD today as per schedule. documented in this encounter Plan of Treatment Upcoming Encounters Date Type Specialty Care Team Description 06/01/2022 Telemedicine Pharmacy An Nicholas APRN C.N.P., D.N.P., M.S.N. [address] [place] [address] [phone] (Nicolas wen) 07/31/2022 Lab Laboratory Medicine Tony Rubalcava M. B., Ch.B., MElvia. [address] [place] [phone] (Nicolas wen) 07/31/2022 Lab Laboratory Medicine Tony Rubalcava M. B., Ch.B., M.Michelle. [address] [place] [address] [phone] (Nicolas wen) 07/31/2022 Office Visit Transplant Tony Rubalcava M.B., Sydnie, Mukund [address] [place] [address] [phone] (Wo rk) 07/31/2022 Appointment Radiology Tony Rubalcava M.B., Sydnie, Mukund [address] [place] [address] [phone] (Wo rk) 08/01/2022 Office Visit Transplant Tony Rubalcava M.B., Sydnie, Mukund [address] [place] [address] [phone] (Wo rk) 08/01/2022 Clinical Support Transplant Tony Rubalcava M.B., Sydnie, Mukund [address] [place] [phone] (Wo rk) documented as of this encounter Visit Diagnoses Not on filedocumented in this encounter Additional Health Concerns Assessment Noted Time PHQ-9 Depression Total Score: 4 01/30/2019 12:13 PM CD T documented as of this encounter
--- OUTSIDE RECORDS SUMMARY | 2022-05-25 13:23 | XMS_ITS | Encounter Summary ---
:1960 Author Organization [facility] Address [address] [place] [address] Care Team Providers Name Role Phone Unavailable Primary Care Provider Unavailable Encounter Details Date Type Department Care Team Description 03/31/2019 Documentation Division of Nephrology and Samuel Fortune, Hypertension in [facility] [address] [facility] 200 [place] [phone] Social History Tobacco Use Types Packs/Day Years [...] How often do you attend bahai or pentecostalism 1 to 4 times per [...] Progress Notes Juliana Fortune R.N. - 03/31/2019 8:[address] Steve Martínez CHIEF COMPLAINT/PURPOSE OF VISIT REASON FOR REFERRAL: Clotted fistula - please attempt to declot. Place tunneled catheter as well to allow fistula to rest per Dr. Martínez. HISTORY OF PRESENT ILLNESS ACCESS: [place] AV Fistula Date placed - 01/09/17 Provider - Dr.Patrick Vanegas LOCATION OF ACCESS: Left Brachial basilic fistula PERTINENT PROCEDURAL HISTORY: Patient referred by for declotting of her fistula and placement of a tunneled dialysis catheter as well so the fistula can rest. She had an ultrasound this am to determine patency and that result is back. Dr. Kingsley aware. She has had multiple fistulograms and declots on this fistula. Her last dialysis treatment was on 03/28/19 at a lower flow. She dialyzes at the [facility] dialysis unit on a Sunday, Sunday and Sunday. Dr. Martínez wants her to dialyze today for a couple hours per his note. PACEMAKER: No pacemaker. DIABETES: No diabetes ANTICOAGULATION: Takes no anticoagulation medications. LABORATORY RESULTS: Current Labs in [facility] under care everywhere from 03/14- and 03/24/19. ALLERGIES/ADVERSE REACTIONS Allergies Allergen Reactions ??? Epoetin Rolando GI intolerance ERYTHROPOIETIN- vomiting ??? Latex Other (see comments) Eczema IMPRESSION/REPORT/PLAN SPECIFIC PATIENT INSTRUCTIONS: [facility] after ultrasound report available. You must have a c web developer to drive you home due to the sedation you will receive. You cannot drive for 24 hours after sedation. Patient fasting per phone call. You may take your morning medication with a small amount of water. Bring the rest of your medicines that you take with you. Plan on spending about half to three fourths of the day in [place] for this procedure. There is generally some waiting involved prior to the procedure. Post Access Instructions: dialysis at [facility]. Appointment scheduled via [facility]/Dr. Kingsley at Interventional Radiology. documented in this encounter Plan of Treatment Upcoming Encounters Date Type Specialty Care Team Description 06/01/2022 Telemedicine Pharmacy An Nicholas APRN, C.N.P., D.N.P., M.S.N. [address] [place] [address] [phone] (Nicolas wen) 07/31/2022 Lab Laboratory Medicine Tony Rubalcava M. B., ChDaviBDavi, M.D. [address] [place] [address] [phone] (Nicolas wen) 07/31/2022 Lab Laboratory Medicine Tony Rubalcava M. B., ChDaviB., M.D. [address] [place] [address] 55 [phone] (Nicolas wen) 07/31/2022 Office Visit Transplant Tony Rubalcava M.B., ChDaviBDavi, M.D. [address] [place] [phone] (Nicolas wen) 07/31/2022 Appointment Radiology Tony Rubalcava M.B., ChDaviBDavi, M.D. [address] [place] [address] 55 [phone] (Nicolas wen) 08/01/2022 Office Visit Transplant Tony Rubalcava M.B., Sydnie, Mukund [address] [place], [place] 55 [phone] (Nicolas wen) 08/01/2022 Clinical Support Transplant Tony Rubalcava M.B., Sydnie, Mukund [address] [place], [place] [phone] (Nicolas wen) documented as of this encounter Visit Diagnoses Not on filedocumented in this encounter Additional Health Concerns Assessment Noted Time PHQ-9 Depression Total Score: 4 01/30/2019 12:13 PM CD T documented as of this encounter
--- OUTSIDE RECORDS SUMMARY | 2022-05-25 13:23 | XMS_ITS | Encounter Summary ---
:1960 Author Organization [facility] Address [address] [place] [address] Care Team Providers Name Role Phone Unavailable Primary Care Provider Unavailable Encounter Details Date Type Department Care Team Description 04/04/2019 Orders Only Division of Nephrology and Joel Fisher, Hypertension in [place], WAX PATTERN REPAIRER, C.N.P., M.S.N. [place] [address] [facility] 200 [place] [phone] (Wo rk) Social History Tobacco Use Types [...] How often do you attend episcopalian or mandaeism 1 to 4 times per [...] An Nicholas APRN, C.NDaviP., D.N.P., M.S.N. [address] [place] [address] 55 [phone] (Nicolas wen) 07/31/2022 Lab Laboratory Medicine Tony Rubalcava M. B., ChBurke, MElvia. [address] [place] [address] 55 [phone] (Nicolas wen) 07/31/2022 Lab Laboratory Medicine Tony Rubalcava M. B., ChBurke, MElvia. [address] [place] [address] 55 [phone] (Nicolas wen) 07/31/2022 Office Visit Transplant Tony Rubalcava M.B., ChDaviBDavi, MDebra [address] [place] [address] 55 [phone] ( behzad) 07/31/2022 Appointment Radiology Tony Rubalcava M.B., ChBurke, MElvia. [address] [place] [address] 55 [phone] (Nicolas wen) 08/01/2022 Office Visit Transplant Tony Rubalcava M.B., [place] [address] [place] [address] 55 [phone] (Wo behzad) 08/01/2022 Clinical Support Transplant Tony Rubalcava M.B., [place] [address] [place] [address] 55 [phone] (Nicolas wen) documented as of this encounter Visit Diagnoses Not on filedocumented in this encounter Additional Health Concerns Assessment Noted Time PHQ-9 Depression Total Score: 4 01/30/2019 12:13 PM CD T documented as of this encounter
--- OUTSIDE RECORDS SUMMARY | 2022-05-25 13:24 | XMS_ITS | Encounter Summary ---
:1960 Author Organization [facility] Address [address] [place] [address] Care Team Providers Name Role Phone Unavailable Primary Care Provider Unavailable Encounter Details Date Type Department Care Team Description 03/03/2019 Hospital Encounter Department of Riana Gaona Renal Laboratory Medicine Angelina Belle APRN, (HC C) and Pathology, [facility]N.P., [facility] [address] [place] [phone] [place] [address] [place], [place] (Work) [phone] Social History Tobacco Use Types Packs/Day Years [...] How often do you attend nondenominational or religion 1 to 4 times per [...] 1 tablet by 0 06/13/2017 05/31/20 19 55-wsiqu-F-biot-zinc mouth daily. (DIALYVITE) [phone] uj-fn-rra-mg tablet ciprofloxacin (CIPRO) Take 1 tablet by [...] times a day. For 14 days mycophenolate TAKE 2 CAPSULES BY 540 capsule 0 05/30/2018 (CELLCEPT) 250 mg MOUTH TWICE DAILY capsule nebivolol (BYSTOLIC) 10 Take 1 tablet (10 [...] Nicholas APRN C.N.P., D.N.P., M.S.N. [address] [place] [address] [phone] ( behzad) 07/31/2022 Lab Laboratory Medicine Tony Rubalcava M. B., Ch.B., M.D. [address] [place] [address] [phone] (Wo behzad) 07/31/2022 Lab Laboratory Medicine Tony Rubalcava M. B., Ch.B., M.D. [address] [place] [address] [phone] ( behzad) 07/31/2022 Office Visit Transplant Tony Rubalcava M.B., Ch.B., M.D. [address] [place] [address] [phone] (Wo rk) 07/31/2022 Appointment Radiology Tony Rubalcava M.B., Mukund [place] [address] [place] [address] [phone] (Wo rk) 08/01/2022 Office Visit Transplant Tony Rubalcava M.B., Mukund [place] [address] [place] [address] [phone] (Wo rk) 08/01/2022 Clinical Support Transplant Tony Rubalcava M.B., Mukund [place] [address] [place] [address] [phone] (Wo rk) documented as of this encounter Procedures Procedure Name Priority Date/Time Associated Diagnosis Comme nts HIV-1/-2 AG AND AB Routine 03/17/2019 5:30 AM Transplant Renal Results for this SCREEN, PLASMA CDT (HCC) procedure are in the results section. HLA CLASS II SAB Routine 03/17/2019 5:30 AM Transplant Renal R esults for this ANTIBODY SCREEN CDT (HCC) procedure ar e in the results section. HLA CLASS I SAB Routine 03/17/2019 5:30 AM Transplant Renal Re sults for this ANTIBODY SCREEN CDT (HCC) procedure ar e in the results section. documented in this encounter Results HIV-1/-2 Ag and Ab Screen, Plasma (03/17/2019 5:30 AM CDT) P athologist Signature HIV-1/-2 Ag Negative Negative 03/18/2019 and Ab Screen, 3:18 PM CDT P Comment: Negative result does not rule out HIV in fection. If exposure to HIV infection occurred <14 d ays ago, contact the laboratory to request additi on of HIV-1 RNA detection / quantification test (HIV QN). Specimen Anatomical Collection Method Collection Time Receive d Time (Source) Location / / Volume Laterality Blood (Blood, 03/17/2019 5:30 AM 03/18/20 2:29 Venous) CDT PM CDT Resulting Agency Comment Mailed In Specimen Angelina J Pompeian MOLDING MANAGER, C.N.P., M.S.N. LAB MICROBIOL OGY - BLOOD ORDERABLES Performing Organization Address City/State/ZIP Code Phon e Number [facility] [address] [place], [place] [address] [facility] HLA Class II SAB Antibody Screen (03/17/2019 5:30 AM CDT) [facility] Method Time Signature Class II SAB Positive Not Applicable 03/20/2019 Overall 7:48 AM CDT Result Class II SAB 37 03/20/2019 cPRA 7:48 AM CDT Comment: ----ADDITIONAL INFORMATION---- This PRA is a [facility] Typing Laboratory calculated PRA. PRA is based on the antigen frequency of the Tissue Typing patient a nd donor population. ??PRA reflects all antibodie s with a normalized value (MFI) above 300. SAB DRB1 Specificity NONE 03/20/2019 7:48 AM CDT SAB [id number] Specificity NONE 03/20/2019 7:48 A M CDT SAB DQB1 Specificity see below 03/20/2019 7:48 AM CDT Comment: 2[97010] Format: Serologic equivalent/abbreviated specificity [Normalized Value] shown in decreasing o rder. Note: A serologic equivalent/abbreviated specifi city displayed multiple times could indicate different alleles. SAB DPB1 Specificity NONE 03/20/2019 7:48 AM CDT Comment: ----ADDITIONAL INFORMATION---- Method: [facility] Performing Laboratory CLIA# [id number] Specimen Anatomical Collection Method Collection Time Receive d Time (Source) Location / / Volume Laterality Blood (Blood, 03/17/2019 5:30 AM 03/18/20 19 Venous) CDT 12:35 PM CDT Resulting Agency Comment Mailed In Specimen Angelina Gaona APRN, C.N.P., M.S.N. LAB HLA ORDER JS Performing Organization Address City/State/ZIP Code Phon e Number [facility] - [address] [place], [place] [address] [facility] HLA Class I SAB Antibody Screen (03/17/2019 5:30 AM CDT) [facility] Method Time Signature Class I SAB Positive Not Applicable 03/20/2019 Overall 7:52 AM CDT Result Class I SAB 84 03/20/2019 cPRA 7:52 AM CDT Comment: ----ADDITIONAL INFORMATION---- This PRA is a [facility]iss [facility] Typing Laboratory calculated PRA. PRA is based on the antigen frequency of the Tissue Typing patient a nd donor population. ??PRA reflects all antibodie s with a normalized value (MFI) above 300. SAB A Specificity see below 03/20/2019 7:52 AM CDT Comment: 32[3466], 31[2833], 25[1807], 23[1614], 30[1443], 24[1402], 24[1325], 30[972] Format: Serologic equivalent/abbreviated specificity [Normalized Value] shown in decreasing o rder. Note: A serologic equivalent/abbreviated specifi city displayed multiple times could indicate different alleles. SAB B Specificity see below 03/20/2019 7:52 AM CDT Comment: 51[8566], 51[5031], 49[3686], 77[3648], 75[3461], 52[3390], 78[3270], 38[2894], 63[2815], 59[2658], 53[2395], 58[2157], 57[2040], 57[1961], 71[936], 75[828], 27 [747], 13[666], 37[651], 44[524], 44[455], 47[305], 35[3 01] Format: Serologic equivalent/abbreviated specificity [Normalized Value] shown in decreasing o rder. Note: A serologic equivalent/abbreviated specifi city displayed multiple times could indicate different alleles. SAB C Specificity NONE 03/20/2019 7:52 AM CDT Comment: ----ADDITIONAL INFORMATION---- Method: [facility] Performing Laboratory CLIA# [id number] Specimen Anatomical Collection Method Collection Time Receive d Time (Source) Location / / Volume Laterality Blood (Blood, 03/17/2019 5:30 AM 03/18/20 19 Venous) CDT 12:35 PM CDT Resulting Agency Comment Mailed In Specimen Angelina Gaona APRN, C.N.P., M.S.N. LAB HLA ORDER JS Performing Organization Address City/State/ZIP Code Phon e Number [facility] - [address] [place], [place] [address] [facility] documented in this encounter Visit Diagnoses Diagnosis Transplant Renal (HCC) documented in this encounter Additional Health Concerns Assessment Noted Time PHQ-9 Depression Total Score: 4 01/30/2019 12:13 PM CD T documented as of this encounter
--- OUTSIDE RECORDS SUMMARY | 2022-05-25 13:24 | XMS_ITS | Encounter Summary ---
:1960 Author Organization [facility] Address [address] [place] [address] Care Team Providers Name Role Phone Unavailable Primary Care Provider Unavailable Encounter Details Date Type Department Care Team Description 03/31/2019 Orders Only Division of Nephrology Steve Martínez omplication Dialysis Fistula Subsequent (Primary Dx); and Hypertension in [place]acisco Garcia D.O. Chronic Kidney Disease Stage 5 Glomerula r Filtration Rate Less Than 15 (HCC) [place], [place] [address] [facility] [address] [place] [phone] Social History Tobacco Use Types Packs/Day Years [...] How often do you attend mandaeism or zoroastrian 1 to 4 times per [...] for the very basics like Not v illy hard 12/23/2021 food, housing, medical care, and [...] An Nicholas APRN C.N.P., D.N.P., M.S.N. [address] [place] [phone] (Wo rk) 07/31/2022 Lab Laboratory Medicine Tony Rubalcava M. B., Sydnie, MDebra [address] [place] [address] [phone] (Wo rk) 07/31/2022 Lab Laboratory Medicine Tony Rubalcava M. B., Sydnie, Mukund [address] [place] [address] [phone] (Wo rk) 07/31/2022 Office Visit Transplant Tony Rubalcava M.B., Sydnie, Mukund [address] [place] [address] [phone] (Wo rk) 07/31/2022 Appointment Radiology Tony Rubalcava M.B., Sydnie, Mukund [address] [place] [address] [phone] (Wo rk) 08/01/2022 Office Visit Transplant Tony Rubalcava M.B., Mukund [place]toole [address] [place], [place] 55 [phone] (Wo rk) 08/01/2022 Clinical Support Transplant Tony Rubalcava M.B., Mukund [place] [address] [place], [place] 55 [phone] (Nicolas rk) documented as [...] endov ascular technique. Recommend surgical consultation. EP Steve Martínez Jr. D.ODavi AZEVEDOG IR PROCEDURES documented in this encounter Visit Diagnoses Diagnosis Complication Dialysis Fistula Subsequent - Primary Chronic Kidney Disease Stage 5 Glomerula r Filtration Rate Less Than 15 (HCC) Complication Dialysis Fistula Subsequent Chronic Kidney Disease Stage 5 Glomerula r Filtration Rate Less Than 15 (HCC) documented in this encounter Additional Health Concerns Assessment Noted Time PHQ-9 Depression Total Score: 4 01/30/2019 12:13 PM CD T documented as of this encounter
--- OUTSIDE RECORDS SUMMARY | 2022-05-25 13:24 | XMS_ITS | Encounter Summary ---
:1960 Author Organization [facility] Address [address] [place] [address] Care Team Providers Name Role Phone Unavailable Primary Care Provider Unavailable Encounter Details Date Type Department Care Team Description 03/14/2019 Orders Only Charity Desai Tra nsplant Renal Center for R.N., C.C.T.C. (HCC) (Primary Dx) Transplantation and [address] [place] [address] Clinical Regeneration in [place], [place] [phone] [place] [address] [place] [phone] (Work) [phone] Social History Tobacco Use Types Packs/Day Years [...] How often do you attend mosque or quaker 1 to 4 times per [...] Nicholas APRN C.N.P., D.N.P., M.S.N. [address] [place] [address] [phone] ( rk) 07/31/2022 Lab Laboratory Medicine Tony Rubalcava M. B., Sydnie, MElvia. [address] [place] [address] [phone] ( rk) 07/31/2022 Lab Laboratory Medicine Tony Rubalcava M. B., ChBurke, MDebra [address] [place] [address] [phone] ( rk) 07/31/2022 Office Visit Transplant Tony Rubalcava M.B., Sydnie, MDebra [address] [place] [address] [phone] ( rk) 07/31/2022 Appointment Radiology Tony Rubalcava M.B., ChBurke, MDebra [address] [place] [address] 55 [phone] (Nicolas wen) 08/01/2022 Office Visit Transplant Tony Rubalcava M.B., Mukund Otoole [address] [place], [place] 55 [phone] (Nicolas wen) 08/01/2022 Clinical Support Transplant Tony Rubalcava M.B., Mukund Oto[place] [address] [place], [place] 55 [phone] (Nicolas wen) documented as of this encounter Results (ABNORMAL) Tacrolimus Level (03/28/2019 5:30 AM CDT) athologist Signature Tacrolimus, B 4.9 (L) 5.0-15.0 04/01/2019 (Trough) 11:28 AM CDT ng/mL Comment: ----ADDITIONAL INFORMATION---- Target [...] Location / / Volume Laterality Blood (Blood, 03/28/2019 5:30 AM 04/01/20 7:15 Venous) CDT AM CDT Resulting Agency Comment Mailed In Specimen Tay Lozano P.A.-C. LAB BLOOD NON ADD-ON Performing Organization Address City/State/ZIP Code Phon e Number [facility] [address] [place], [place] [address] [facility] documented in this encounter Visit Diagnoses Diagnosis Transplant Renal (HCC) - Primary documented in this encounter Additional Health Concerns Assessment Noted Time PHQ-9 Depression Total Score: 4 01/30/2019 12:13 PM CD T documented as of this encounter
--- OUTSIDE RECORDS SUMMARY | 2022-05-25 13:24 | XMS_ITS | Encounter Summary ---
:1960 Author Organization [facility] Address [address] [place] [address] Care Team Providers Name Role Phone Unavailable Primary Care Provider Unavailable Encounter Details Date Type Department Care Team Description 03/28/2019 Documentation Division of Nephrology and Josr Martínez Hypertension in [place], ., D.O. [place] [address] [facility] 200 [place] [phone] (Wo rk) Social History Tobacco Use Types [...] How often do you attend catholic or judaism 1 to 4 times per [...] Progress Notes Steve Martínez Jr., D.O. - 03/28/2019 8:44 AM CDT Phone note Phone call from the [facility] dialysis unit, Ms. nanette beckman access is quite problematic. Her dynamic venous pressures are greater than 140 mm, and the team had a very difficult time accessing her fistula today. She has had innumerable events, at least 3 episodes of thrombosis. She is- just back from [place], where her tunneled dialysis catheter was removed, and her access is being utilized for the past 2 weeks. I am hopeful that she can have fistulogram emergently this evening, to head off imminent thrombosis. documented in this encounter Plan of Treatment Upcoming Encounters Date Type Specialty Care Team Description 06/01/2022 Telemedicine Pharmacy An Nicholas APRN, C.N.P., D.N.P., M.S.N. [address] [place] [address] 55 [phone] (Nicolas wen) 07/31/2022 Lab Laboratory Medicine Tony Rubalcava M. B., Ch.BDavi, MElvia. [address] [place] [address] 55 [phone] (Nicolas wen) 07/31/2022 Lab Laboratory Medicine Tony Rubalcava M. B., Sydnie, Mukund [address] [place] [address] 55 [phone] (Wo rk) 07/31/2022 Office Visit Transplant Tony Rubalcava M.B., Sydnie, Mukund [address] [place] [address] 55 [phone] (Wo rk) 07/31/2022 Appointment Radiology Tony Rubalcava M.B., Sydnie, Mukund [address] [place] [address] 55 [phone] (Wo rk) 08/01/2022 Office Visit Transplant Tony Rubalcava M.B., Sydnie, Mukund [address] [place] [address] 55 [phone] (Wo rk) 08/01/2022 Clinical Support Transplant Tony Rubalcava M.B., Sydnie, Mukund [address] [place] [address] [phone] (Wo behzad) documented as of this encounter Visit Diagnoses Not on filedocumented in this encounter Additional Health Concerns Assessment Noted Time PHQ-9 Depression Total Score: 4 01/30/2019 12:13 PM CD T documented as of this encounter
--- OUTSIDE RECORDS SUMMARY | 2022-05-25 13:24 | XMS_ITS | Encounter Summary ---
:1960 Author Organization [facility] Address [address] [place] [address] Care Team Providers Name Role Phone Unavailable Primary Care Provider Unavailable Encounter Details Date Type Department Care Team Description 02/28/2019 Clinical Communication Ata Hong, Center for Angelina J, Transplantation and Tete WHITE, Clinical Regeneration in [place], [place] [address] [place] [address] [address] [place] [phone] Social History Tobacco Use Types Packs/Day Years [...] How often do you attend jain or zoroastrianism 1 to 4 times per [...] An Nicholas APRN C.NDaviP., D.N.P., M.S.N. [address] [place] [address] 55 [phone] ( rk) 07/31/2022 Lab Laboratory Medicine Tony Rubalcava M. B., Sydnie, MDebra [address] [place] [address] 55 [phone] ( rk) 07/31/2022 Lab Laboratory Medicine Tony Rubalcava M. B., ChBurke, MDebra [address] [place] [address] 55 [phone] ( rk) 07/31/2022 Office Visit Transplant Tony Rubalcava M.B., ChBurke, MDebra [address] [place] [address] 55 [phone] ( rk) 07/31/2022 Appointment Radiology Tony Rubalcava M.B., ChBurke, MDebra [address] [place] [address] 55 [phone] ( rk) 08/01/2022 Office Visit Transplant Tony Rubalcava M.B., Mukund Otoole [address] [place], [place] 55 [phone] (Wo rk) 08/01/2022 Clinical Support Transplant Tony Rubalcava M.B., Mukund O[place]ole [address] [place], [place] 55 [phone] (Wo rk) documented as [...] Blood (Blood, 03/17/2019 5:30 AM 03/18/20 19 2:29 Venous) CDT PM CDT Resulting Agency Comment Mailed In Specimen Milli Conway APRNNJohan., M.S.N. LAB MICROBIOL OGY - BLOOD ORDERABLES Performing Organization Address City/State/ZIP Code Phon e Number [facility] [address] [place], [place] [address] [facility] HLA Class II SAB Antibody Screen (03/17/2019 5:30 AM CDT) Patholo gist Method Time Signature Class II SAB Positive Not Applicable 03/20/2019 Overall 7:48 AM CDT Result Class II SAB 37 03/20/2019 cPRA 7:48 AM CDT Comment: ----ADDITIONAL INFORMATION---- This PRA is a [facility] Tiss ue Typing Laboratory calculated PRA. PRA is based on the antigen frequency of the Tissue Typing patient a nd donor population. ??PRA reflects all antibodie s with a normalized value (MFI) above 300. SAB DRB1 Specificity NONE 03/20/2019 7:48 AM CDT SAB [id number] Specificity NONE 03/20/2019 7:48 A M CDT SAB DQB1 Specificity see below 03/20/2019 7:48 AM CDT Comment: 2[66604] Format: Serologic equivalent/abbreviated specificity [Normalized Value] shown in decreasing o rder. Note: A serologic equivalent/abbreviated specifi city displayed multiple times could indicate different alleles. SAB DPB1 Specificity NONE 03/20/2019 7:48 AM CDT Comment: ----ADDITIONAL INFORMATION---- Method: [facility] Performing Laboratory CLIA# [id number] Specimen Anatomical Collection Method Collection Time Receive d Time (Source) Location / / Volume Laterality Blood (Blood, 03/17/2019 5:30 AM 03/18/20 19 Venous) CDT 12:35 PM CDT Resulting Agency Comment Mailed In Specimen Milli Conway APRNNDaviP., M.S.N. LAB HLA ORDER JS Performing Organization Address City/State/[facility] Code Phon e Number [facility] - [address] [place] [address] [facility] HLA Class I SAB Antibody Screen (03/17/2019 5:30 AM CDT) [facility] Method Time Signature Class I SAB Positive Not Applicable 03/20/2019 Overall 7:52 AM CDT Result Class I SAB 84 03/20/2019 cPRA 7:52 AM CDT Comment: ----ADDITIONAL INFORMATION---- This PRA is a [facility] Tiss ue Typing Laboratory calculated [...] ----ADDITIONAL INFORMATION---- Method: [facility] Performing Laboratory CLIA# [id number] Specimen Anatomical Collection Method Collection Time Receive d Time (Source) Location / / Volume Laterality Blood (Blood, 03/17/2019 5:30 AM 03/18/20 19 Venous) CDT 12:35 PM CDT Resulting Agency Comment Mailed In Specimen Angelina Gaona APRN C.N.P., M.S.N. LAB HLA ORDER JS Performing Organization Address City/State/ZIP Code Phon e Number [facility] - [address] [place] [address] [facility] documented in this encounter Visit Diagnoses Diagnosis Transplant Renal (HCC) - Primary documented in this encounter Additional Health Concerns Assessment Noted Time PHQ-9 Depression Total Score: 4 01/30/2019 12:13 PM CD T documented as of this encounter
--- OUTSIDE RECORDS SUMMARY | 2022-05-25 13:24 | XMS_ITS | Encounter Summary ---
:1960 Author Organization [facility] Address [address] [place] [address] Care Team Providers Name Role Phone Unavailable Primary Care Provider Unavailable Encounter Details Date Type Department Care Team Description 03/31/2019 Documentation Division of Nephrology and Josr Martínez Hypertension in [place], ., D.O. [place] [address] [facility] 200 [place] [phone] (Wo rk) Social History Tobacco Use Types [...] How often do you attend sikh or yazidi 1 to 4 times per [...] this encounter Progress Notes Steve Martínez Jr., Michelle.Jhonny. - 03/31/2019 6:43 AM CDT I was Called from [facility] at 0530, she is clotted again. The team can feel a pulse but no bruit, and were unsuccessful in attempts to cannulate her swollen L AVF. Note the BRANCH MANAGER on Sunday afternoon. She had her full session, at a lower BFR on Sunday. She is NPO. BP is 135/65, she is only 2 KG to EDW. #1 Clotted L AVF Need attempt at declot, but I favor placement of stable R IJ TDC to ensure dialysis delivery. We will need to rest the arm #2 ESRD I hope we might hold on HD until tomorrow in [place], but given the poor run on Sunday and the weekend, perhaps a 2 hr session at [facility] may be accommodated today late PM 2 hrs UF 2 L, K2, CA 2.5, HCO 32, NA 138 documented in this encounter Plan of Treatment Upcoming Encounters Date Type Specialty Care Team Description 06/01/2022 Telemedicine Pharmacy An Nicholas APRN, C.N.P., D.N.P., M.S.N. [address] [place], [place] [phone] (Wo rk) 07/31/2022 Lab Laboratory Medicine Tony Rubalcava M. B., Sydnie, Mukund [address] [place] [address] 55 [phone] (Wo rk) 07/31/2022 Lab Laboratory Medicine Tony Rubalcava M. B., Sydnie, Mukund [address] [place] [address] 55 [phone] (Wo rk) 07/31/2022 Office Visit Transplant Tony Rubalcava M.B., Sydnie, Mukund [address] [place] [address] 55 [phone] (Wo rk) 07/31/2022 Appointment Radiology Tony Rubalcava M.B., Sydnie, Mukund [address] [place] [address] 55 [phone] (Wo rk) 08/01/2022 Office Visit Transplant Tony Rubalcava M.B., Sydnie, MDebra [address] [place] [address] 55 [phone] (Wo rk) 08/01/2022 Clinical Support Transplant Tony Rubalcava M.B., Sydnie, MDebra [address] [place] [address] 55 [phone] (Wo rk) documented as of this encounter Visit Diagnoses Not on filedocumented in this encounter Additional Health Concerns Assessment Noted Time PHQ-9 Depression Total Score: 4 01/30/2019 12:13 PM CD T documented as of this encounter
--- OUTSIDE RECORDS SUMMARY | 2022-05-25 13:24 | XMS_ITS | Encounter Summary ---
:1960 Author Organization [facility] Address [address] [place] [address] Care Team Providers Name Role Phone Unavailable Primary Care Provider Unavailable Encounter Details Date Type Department Care Team Description 03/28/2019 Orders Only Division of Nephrology Steve Martínez omplication Dialysis and Hypertension in C Moriah Garcia. Fistula Subsequent [place], [place] [address] [facility] (Primary Dx) [address] [place] [id number] [phone] Social History Tobacco Use Types Packs/Day Years [...] How often do you attend pentecostal or rastafari 1 to 4 times per [...] An Nicholas APRN, C.NDaviP., D.N.P., M.S.N. [address] [place] [address] 55 [phone] (Nicolas wen) 07/31/2022 Lab Laboratory Medicine Tony Rubalcava M. B., ChBurke, MElvia. [address] [place] [address] [phone] (Nicolas wen) 07/31/2022 Lab Laboratory Medicine Tony Rubalcava M. B., ChBurke, MElvia. [address] [place] [address] 55 [phone] (Nicolas wen) 07/31/2022 Office Visit Transplant Tony Rubalcava M.B., ChDaviBDavi, MDebra [address] [place] [address] 55 [phone] ( behzad) 07/31/2022 Appointment Radiology Tony Rubalcava M.B., ChBurke, MElvia. [address] [place] [address] [phone] (Nicolas wen) 08/01/2022 Office Visit Transplant Tony Rubalcava M.B., Mukund Otoole [address] [place], [place] [phone] (Wo rk) 08/01/2022 Clinical Support Transplant Tony Rubalcava M.B., Mukund Otoole [address] [place], [place] [phone] (Wo rk) documented as of this encounter Results IR Dialysis Fistulagram Left (03/28/2019 12:41 PM CDT) Anatomical Region Laterality Modality Body, Vascular Interventional RST LOS, Vascular Left X-Ray Angiography Interventional ARZ LOS, Vascular Interventional FLA LOS Specimen (Source) Anatomical Collection Method Collection Time Re ceived Time Location / / Volume Laterality 03/28/2019 1:06 PM CDT Impressions 03/28/2019 1:15 PM CDT Successful angioplasty of restenosis at the top end of the basilic vein stent in the left brachiobasilic di alysis fistula. NR Narrative 03/28/2019 1:15 PM CDT EXAM: IR DIALYSIS FISTULAGRAM LEFT CLINICAL HISTORY: Malfunctioning left br achiobasilic dialysis fistula. TECHNIQUE: The left brachiobasilic dialy sis fistula site was prepped and draped in sterile fashion. Preliminary ultrasou nd examination of the ectatic first portion of the fistula showed moderate m ural thrombus. There was a strong palpable thrill and some pulsatility. Un kristi ultrasound guidance and local anesthesia, the basilic vein was punctur ed antegrade at the mid humerus level. A permanent image was created and stored. Through a 4 Bermudian dilator, an outflow study was performed. This showed moderat e narrowing at the top end the basilic vein stent at its confluence. There is m ild narrowing of the most central portion of the subclavian vein at its co nfluence. Central venous outflow is widely patent through the SVC. The stent stenosis was crossed with a Schroeder wire. A 6 Bermudian sheath was placed. The 8 mm s tent was dilated with an 8 mm balloon. While the balloon was inflated, a reflux study of the anastomosis was performed showing mild to moderate narrowing. The balloon was removed and a follow-up run showed an angiographically satisfactory result through the stent. Appliances were removed and hemostasis was achieved with the aid of an 0 silk temporary pursestring suture. PREPROCEDURE: Patient seen, evaluated, h istory reviewed, [...] procedure. The total intra-procedural sedation time was: 17 m inutes. Estimated blood loss: Less than 5 mL. Procedure Note Terry Kingsley M.D. - 03/28/2019Formatt ing of this note might be different from the original. EXAM: IR DIALYSIS FISTULAGRAM LEFT CLINICAL HISTORY: Malfunctioning left br achiobasilic dialysis fistula. TECHNIQUE: The left brachiobasilic dialy sis fistula site was prepped and draped in sterile fashion. Preliminary ultrasou nd examination of the ectatic first portion of the fistula showed moderate m ural thrombus. There was a strong palpable thrill and some pulsatility. Un kristi ultrasound guidance and local anesthesia, the basilic vein was punctur ed antegrade at the mid humerus level. A permanent image was created and stored. Through a 4 Bermudian dilator, an outflow study was performed. This showed moderat e narrowing at the top end the basilic vein stent at its confluence. There is m ild narrowing of the most central portion of the subclavian vein at its co nfluence. Central venous outflow is widely patent through the SVC. The stent stenosis was crossed with a Schroeder wire. A 6 Bermudian sheath was placed. The 8 mm s tent was dilated with an 8 mm balloon. While the balloon was inflated, a reflux study of the anastomosis was performed showing mild to moderate narrowing. The balloon was removed and a follow-up run showed an angiographically satisfactory result through the stent. Appliances were removed and hemostasis was achieved with the aid of an 0 silk temporary pursestring suture. PREPROCEDURE: Patient seen, evaluated, h istory reviewed, [...] procedure. The total intra-procedural sedation time was: 17 m inutes. Estimated blood loss: Less than 5 mL. IMPRESSION: Successful angioplasty of restenosis at the top end of the basilic vein stent in the left brachiobasilic di alysis fistula. NR Whitney Rasheed Jr.ODavi [place] IR PROCEDURES documented in this encounter Visit Diagnoses Diagnosis Complication Dialysis Fistula Subsequent - Primary Complication Dialysis Fistula Subsequent documented in this encounter Additional Health Concerns Assessment Noted Time PHQ-9 Depression Total Score: 4 01/30/2019 12:13 PM CD T documented as of this encounter
--- OUTSIDE RECORDS SUMMARY | 2022-05-25 13:24 | XMS_ITS | Encounter Summary ---
:1960 Author Organization [facility] Address [address] [place] [id number] Care Team Providers Name Role Phone Unavailable Primary Care Provider Unavailable Encounter Details Date Type Department Care Team Description 02/11/2019 Documentation Division of Nephrology and Clara Clarke R.N. Hypertension in [place], [facility] 1 [place], [place] 200 [facility] [address] [place] [address] [phone] Social History Tobacco Use Types Packs/Day Years [...] How often do you attend gnosticism or mormonism 1 to 4 times per [...] encounter Progress Notes Clara Clarke R.N. - 02/11/2019 9:[address] Steve Martínez [phone] CHIEF COMPLAINT/PURPOSE OF VISIT REASON FOR REFERRAL: Tunneled dialysis catheter placement HISTORY OF PRESENT ILLNESS ACCESS: ??[place] AV Fistula ?Date placed - 01/09/17 ?Provider -?Guilherme ?? LOCATION OF ACCESS:??Left Brachial??Basilic? PERTINENT PROCEDURAL HISTORY: Patient referred by Dr. Martínez for tunneled dialysis catheter placement. Yesterday Dr. Nichols declotted for fistula twice during the same procedure, this morning when she presented to dialysis, her fistula was found to be clotted again. No thrill or bruit present and 1 needle attempted with black blood return. The patient is fasting and a Stat potassium was drawn. The patient has not dialyzed since Sunday. She??dialyzes at the [facility]clinic on a Sunday, Sunday and Sunday schedule. ?? DIABETES: No ANTICOAGULATION: Takes no anticoagulation medications. LABORATORY RESULTS: Current Labs in [facility] from 01/28/19. ALLERGIES/ADVERSE REACTIONS Allergies Allergen Reactions ??? Epoetin Rolando GI intolerance ERYTHROPOIETIN- vomiting ??? Latex Other (see comments) Eczema IMPRESSION/REPORT/PLAN SPECIFIC PATIENT INSTRUCTIONS: Patient instructed to report to the [facility], Howard IglesiasHalina on 02/11/19 at 10:30am. You must have a library media technician to drive you home due to the [...] to three fourths of the day in [place] for this procedure. There is generally some waiting involved prior to the procedure. Post Access Instructions: Report to Elia CUNNINGHAM following catheter placement for a dialysis treatment. Appointment scheduled via [place]o [place] at Interventional Radiology. documented in this encounter Plan of Treatment Upcoming Encounters Date Type Specialty Care Team Description 06/01/2022 Telemedicine Pharmacy An Nicholas APRN, C.N.P., D.N.P., M.S.N. [address] [place] [address] 55 [phone] (Nicolas wen) 07/31/2022 Lab Laboratory Medicine Tony Rubalcava M. B., Ch.BDavi, M.D. [address] [place] [address] 55 [phone] (Nicolas wen) 07/31/2022 Lab Laboratory Medicine Tony Rubalcava M. B., ChDaviBDavi, M.D. [address] [place] [address] 55 [phone] (Nicolas wen) 07/31/2022 Office Visit Transplant Tony Rubalcava M.B., Sydnie, Mukund [address] [place] [address] 55 [phone] (Nicolas wen) 07/31/2022 Appointment Radiology Tony Rubalcava M.B., Mukund Otoole [address] [place] [address] 55 [phone] (Nicolas wen) 08/01/2022 Office Visit Transplant Tony Rubalcava M.B., Sydnie, Mukund [address] [place] [address] 55 [phone] (Nicolas wen) 08/01/2022 Clinical Support Transplant Tony Rubalcava M.B., Sydnie, Mukund [address] [place] [address] 55 [phone] (Nicolas wen) documented as of this encounter Visit Diagnoses Not on filedocumented in this encounter Additional Health Concerns Assessment Noted Time PHQ-9 Depression Total Score: 4 01/30/2019 12:13 PM CD T documented as of this encounter
--- OUTSIDE RECORDS SUMMARY | 2022-05-25 13:24 | XMS_ITS | Encounter Summary ---
:1960 Author Organization [facility] Address [address] [place] [address] Care Team Providers Name Role Phone Unavailable Primary Care Provider Unavailable Encounter Details Date Type Department Care Team Description 03/28/2019 Documentation Division of Nephrology [facility] Trevizo[facility] [address] [place] [address] [place] [address] [place] [address] [phone] Social History Tobacco Use Types Packs/Day Years [...] How often do you attend christianity or latter day 1 to 4 times [...] encounter Nursing Notes Elo Trevizo R.N. - 03/28/2019 8:[address] Steve Martínez [phone] CHIEF COMPLAINT/PURPOSE OF VISIT REASON FOR REFERRAL: Probable stenosis [place] arterial venous fistula - fistulogram with DESIGN ENGINEER HISTORY OF PRESENT ILLNESS ACCESS: ??[place] AV Fistula ?Date placed - 01/09/17 ?Provider -?Guilherme ?? LOCATION OF ACCESS:??Left Brachial??Basilic?? PERTINENT PROCEDURAL HISTORY: Patient referred by Dr. Steve Martínez for fistulogram and angioplasty as indicated. She is being referred due to inadequate flows this morning at dialysis. She has received about 45 minutes of her treatment time before being referred for a fistulogram. Her last fistulogram was on 02/10/[address] Monreal with angioplasty. She has had 5 fistulograms on this fistula and 3 declot procedures. [facility] on a Sunday, Sunday, and Sunday schedule. DIABETES: Not diabetic ANTICOAGULATION: None LABORATORY RESULTS: Current Labs in [facility] from 02/11/19 & 03/24/19 in care everywhere IMPRESSION/REPORT/PLAN SPECIFIC PATIENT INSTRUCTIONS: Patient instructed to report to the [facility], Howard IglesiasMichelle today, March 28 at 10:30 am arrival to be worked in. You must have a bag sewer to drive you home due to the [...] to three fourths of the day in [place] for this procedure. There is generally some waiting involved prior to the procedure. Post Access Instructions: Resume your usual dialysis schedule. Appointment scheduled via WILMER Vargas and Rema at Interventional Radiology. Appointment guide has beenfaxed over to the dialysis unit. documented in this encounter Plan of Treatment Upcoming Encounters Date Type Specialty Care Team Description 06/01/2022 Telemedicine Pharmacy An Nicholas APRN, C.N.P., D.N.P., M.S.N. [address] [place] [address] 55 [phone] (Nicolas wen) 07/31/2022 Lab Laboratory Medicine Tony Rubalcava M. B., ChBurke, MElvia. [address] [place] [address] 55 [phone] (Nicolas wen) 07/31/2022 Lab Laboratory Medicine Tony Rubalcava M. B., ChBurke, MElvia. [address] [place] [address] 55 [phone] (Nicolas wen) 07/31/2022 Office Visit Transplant Tony Rubalcava M.B., ChBurke, MElvia. [address] [place] [address] 55 [phone] (Nicolas wen) 07/31/2022 Appointment Radiology Tony Rubalcava M.B., Mukund Otoole [address] [place] [address] 55 [phone] (Wo rk) 08/01/2022 Office Visit Transplant Tony Rubalcava M.B., Mukund Otoole [address] [place] [address] 55 [phone] (Wo rk) 08/01/2022 Clinical Support Transplant Tony Rubalcava M.B., Mukund Otoole [address] [place] [address] 55 [phone] (Wo rk) documented as of this encounter Visit Diagnoses Not on filedocumented in this encounter Additional Health Concerns Assessment Noted Time PHQ-9 Depression Total Score: 4 01/30/2019 12:13 PM CD T documented as of this encounter
--- OUTSIDE RECORDS SUMMARY | 2022-05-25 13:24 | XMS_ITS | Encounter Summary ---
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 (DIALYVITE) [phone] zn-or-agp-mg tablet ciprofloxacin (CIPRO) Take 1 tablet by [...] Nicholas APRN, C.N.P., D.N.P., M.S.N. [address] [place] [address] 55 [phone] (Nicolas wen) 07/31/2022 Lab Laboratory Medicine Tony Rubalcava M. B., Ch.B., M.D. [address] [place] [address] 55 [phone] (Wo behzad) 07/31/2022 Lab Laboratory Medicine Tony Rubalcava M. B., Ch.B., MElvia. [address] [place] [address] 55 [phone] (Wo bezhad) 07/31/2022 Office Visit Transplant Tony Rubalcava M.B., Ch.B., MElvia. [address] [place] [address] 55 [phone] (Wo rk) 07/31/2022 Appointment Radiology Tony Rubalcava M.B., Mukund Otoole [address] [place], [place] 55 [phone] (Wo rk) 08/01/2022 Office Visit Transplant Tony Rubalcava M.B., Mukund Otoole [address] [place] [address] 55 [phone] (Wo rk) 08/01/2022 Clinical Support Transplant Tony Rubalcava M.B., Mukund Otoole [address] [place] [address] 55 [phone] (Wo rk) documented as of this encounter Procedures Procedure Name Priority Date/Time Associated Comments Diagnosis US HEMODIALYSIS RAD - Routine 03/31/2019 10:51 Embolism Due To Resu lts for this FISTULA-GRAFT LEFT (most inpatients AM CDT Vascular proce dure are in and all Prosthetic the results outpatients) Devices Implants section. And Grafts Sequela Complication Dialysis Fistula Subsequent Chronic Kidney Disease Stage 5 Glomerular Filtration Rate Less Than 15 (HCC) documented in this encounter Results US Hemodialysis Fistula-Graft Left (03/31/2019 10:51 AM CDT) Anatomical Region Laterality Modality Body, Ultrasound RST LOS, Ultrasound ARZ LOS, Ultrasound FLA Left Ultrasound LOS, Procedural Specimen (Source) Anatomical Collection Method Collection Time Re ceived Time Location / / Volume Laterality 03/31/2019 11:26 AM CDT Impressions 03/31/2019 11:54 AM CDT Occluded left brachiobasilic fistula with thrombus starting 3-4 mm above the anastomosis and extending to t he basilic vein confluence with the axillary vein. Narrative 03/31/2019 11:54 AM CDT EXAM: US HEMODIALYSIS FISTULA-GRAFT LEFT Exam performed with color and spectral D oppler analysis. COMPARISON: IR dialysis fistulogram left 03/28/2019. Ultrasound hemodialysis fistula left 10/28/2018. FINDINGS: Location: Left brachial artery artery to basilic vein fistula. Arterial: Antegrade flow distal to the f istula. Anastomosis: Occlusion of the AVF with t hrombus starting approximately 3-4 mm above the anastomosis . Outflow vein: Occlusion of the basilic v ein including the stent in the upper basilic vein. Superiorly the thrombus ex tends to the confluence with the axillary vein. Central veins: Patent without significan t stenosis. Branches: None. Mean average flow volume: 0 mL/min. <500 ml/min = low flow 500-800 ml/min = borderline >800 ml/min = normal ?? Procedure Note Liane Newby M.B.B.S., MElvia. - 03/31/20 19 EXAM: US HEMODIALYSIS FISTULA-GRAFT LEFT Exam performed with color and spectral D oppler analysis. COMPARISON: IR dialysis fistulogram left 03/28/2019. Ultrasound hemodialysis fistula left 10/28/2018. FINDINGS: Location: Left brachial artery artery to basilic vein fistula. Arterial: Antegrade flow distal to the f istula. Anastomosis: Occlusion of the AVF with t hrombus starting approximately 3-4 mm above the anastomosis . Outflow vein: Occlusion of the basilic v ein including the stent in the upper basilic vein. Superiorly the thrombus ex tends to the confluence with the axillary vein. Central veins: Patent without significan t stenosis. Branches: None. Mean average flow volume: 0 mL/min. <500 ml/min = low flow 500-800 ml/min = borderline >800 ml/min = normal IMPRESSION: Occluded left brachiobasilic fistula wit h thrombus starting 3-4 mm above the anastomosis and extending to t he basilic vein confluence with the axillary vein. Steve Martínez Jr. D.ODavi IMEdinson US PROCEDURES documented in this encounter Visit Diagnoses Diagnosis Embolism Due To Vascular Prosthetic Nayely any Implants And Grafts Sequela Complication Dialysis Fistula Subsequent Chronic Kidney Disease Stage 5 Glomerula r Filtration Rate Less Than 15 (HCC) documented in this encounter Additional Health Concerns Assessment Noted Time PHQ-9 Depression Total Score: 4 01/30/2019 12:13 PM CD T documented as of this encounter
--- OUTSIDE RECORDS SUMMARY | 2022-05-25 13:24 | XMS_ITS | Encounter Summary ---
:1960 Author Organization [facility] Address [address] [place] [address] Care Team Providers Name Role Phone Unavailable Primary Care Provider Unavailable Encounter Details Date Type Department Care Team Description 03/31/2019 Orders Only Division of Nephrology Steve Martínez omplication Dialysis Fistula Subsequent (Primary Dx); and Hypertension in [place]ac[place] Garcia D.O. Chronic Kidney Disease Stage 5 Glomerula r Filtration Rate Less Than 15 (HCC); [place], [place] [address] [facility] Embolism Due To Vascular Prosthetic Nayely any Implants And Grafts Sequela [address] [place] [address] [phone] Social History Tobacco Use Types Packs/Day Years [...] How often do you attend anabaptism or mandaen 1 to 4 times per [...] Nicholas APRN C.N.P., D.N.P., M.S.N. [address] [place] [address] 55 [phone] (Wo rk) 07/31/2022 Lab Laboratory Medicine Tony Rubalcava M. B., Sydnie, MDebra [address] [place] [address] 55 [phone] (Wo rk) 07/31/2022 Lab Laboratory Medicine Tony Rubalcava M. B., ChBurke, MDebra [address] [place] [address] 55 [phone] (Wo rk) 07/31/2022 Office Visit Transplant Tony Rubalcava M.B., Sydnie, MDebra [address] [place] [address] 55 [phone] (Wo rk) 07/31/2022 Appointment Radiology Tony Rubalcava M.B., ChBurke, Mukund [address] [place] [address] [place] 55 [phone] (Wo rk) 08/01/2022 Office Visit Transplant Tony Rubalcava M.B., Mukund Otoole [address] [place], [place] 55 [phone] (Wo rk) 08/01/2022 Clinical Support Transplant Tony Rubalcava M.B., Mukund Otoole [address] [place], [place] 55 [phone] (Wo rk) documented as of this encounter Results US Hemodialysis Fistula-Graft Left [...] normal ?? Procedure Note Liane Newby M.B.B.S., M.D. - 03/31/20 19 EXAM: US HEMODIALYSIS FISTULA-GRAFT [...] confluence with the axillary vein. Steve Martínez Jr., D.O. IMG US PROCEDURES documented in this encounter Visit Diagnoses Diagnosis Complication Dialysis Fistula Subsequent - Primary Chronic Kidney Disease Stage 5 Glomerula r Filtration Rate Less Than 15 (HCC) Embolism Due To Vascular Prosthetic Nayely any Implants And Grafts Sequela Embolism Due To Vascular Prosthetic Nayely any Implants And Grafts Sequela Complication Dialysis Fistula Subsequent Chronic Kidney Disease Stage 5 Glomerula r Filtration Rate Less Than 15 (HCC) documented in this encounter Additional Health Concerns Assessment Noted Time PHQ-9 Depression Total Score: 4 01/30/2019 12:13 PM CD T documented as of this encounter
--- OUTSIDE RECORDS SUMMARY | 2022-05-25 13:24 | XMS_ITS | Encounter Summary ---
:[address] [facility] Address [address] [place] [address] Care Team Providers Name Role Phone Unavailable Primary Care Provider Unavailable Reason for Visit Reason Comments Med Refill Encounter Details Date Type Department Care Team Description 03/14/2019 Refill Division of Nephrology and Tanya, Neymar Yap Jr., Med Refill Hypertension in [facility] [address] [facility] 200 [place] [address] [place] [address] [phone] Social History Tobacco Use Types Packs/Day Years [...] Encounter - Steve Martínez Jr., D.O. - 03/14/2019 3:24 PM CDT Okay done Telephone Encounter - Brenna Eller - 03/14/2019 9:25 AM CDT Sary from [facility] called. The patient needs her mycophenolate [facility]illed. [facility] [place]. 250 mg. Thank you. documented in this encounter Plan of Treatment Upcoming Encounters Date Type Specialty Care Team Description 06/01/2022 Telemedicine Pharmacy An Nicholas APRN, C.N.P., D.N.P., M.S.N. [address] [place] [address] 55 [phone] (Wo behzad) 07/31/2022 Lab Laboratory Medicine Tony Rubalcava M. B., Ch.BDavi, M.D. [address] [place] [address] 55 [phone] (Wo rk) 07/31/2022 Lab Laboratory Medicine Tony Rubalcava M. B., Sydnie, Mukund [address] [place] [address] 55 [phone] (Wo rk) 07/31/2022 Office Visit Transplant Tony Rubalcava M.B., Sydnie, Mukund [address] [place] [address] 55 [phone] (Wo rk) 07/31/2022 Appointment Radiology Tony Rubalcava M.B., Sydnie, Mukund [address] [place] [address] 55 [phone] (Wo rk) 08/01/2022 Office Visit Transplant Tony Rubalcava M.B., Sydnie, Mukund [address] [place] [address] 55 [phone] (Wo rk) 08/01/2022 Clinical Support Transplant Tony Rubalcava M.B., Sydnie, Mukund [address] [place] [address] 55 [phone] (Wo rk) documented as of this encounter Visit Diagnoses Not on filedocumented in this encounter Additional Health Concerns Assessment Noted Time PHQ-9 Depression Total Score: 4 01/30/2019 12:13 PM CD T documented as of this encounter
--- OUTSIDE RECORDS SUMMARY | 2022-05-25 13:24 | XMS_ITS | Encounter Summary ---
:1960 Author Organization [facility] Address [address] [place] [address] Care Team Providers Name Role Phone Unavailable Primary Care Provider Unavailable Encounter Details Date Type Department Care Team Description 03/14/2019 Orders Only Division of Nephrology and Neymar Martínez Hypertension in [place], ., D.O. [place] [address] [facility] [address] [place] [phone] (Wo rk) Social History Tobacco Use Types [...] How often do you attend alevism or taoism 1 to 4 times per [...] Nicholas APRN C.N.P., D.N.P., M.S.N. [address] [place] [address] [phone] (Nicolas wen) 07/31/2022 Lab Laboratory Medicine Tony Rubalcava M. B., ChBurke, MElvia. [address] [place] [address] [phone] (Nicolas wen) 07/31/2022 Lab Laboratory Medicine Tony Rubalcava M. B., ChBurke, MElvia. [address] [place] [address] [phone] (Nicolas wen) 07/31/2022 Office Visit Transplant Tony Rubalcava M.B., ChDaviBDavi, MElvia. [address] [place] [address] [phone] (Nicolas wen) 07/31/2022 Appointment Radiology Tony Rubalcava M.B., ChDaviBDavi, MDaviD. [address] [place] [address] [phone] (Nicolas wen) 08/01/2022 Office Visit Transplant Tony Rubalcava M.B., Mu[place]nd [place] [address] [place], [place] [phone] (Wo behzad) 08/01/2022 Clinical Support Transplant Tony Rubalcava M.B., Mukund [place] [address] [place], [place] [phone] (Nicolas wen) documented as of this encounter Visit Diagnoses Not on filedocumented in this encounter Additional Health Concerns Assessment Noted Time PHQ-9 Depression Total Score: 4 01/30/2019 12:13 PM CD T documented as of this encounter
--- OUTSIDE RECORDS SUMMARY | 2022-05-25 13:24 | XMS_ITS | Encounter Summary ---
:1960 Author Organization [facility] Address [address] [place] [address] Care Team Providers Name Role Phone Unavailable Primary Care Provider Unavailable Reason for Visit Reason Comments Vascular Access Problem presents with c/o feeling li ghtheaded, having urinary incontinence, and nausea aft er she had a vicky cath placed in [place] today and dialysis Encounter Details Date Type Department Care Team Description 02/11/2019 Emergency [place] [facility] Nicolas Archer L ighspenceradedalysia (Primary Department P.A.-C., P.A. Dx) [address] [place] [phone] Social History Tobacco Use Types Packs/Day Years [...] How often do you attend synagogue or gnosticism 1 to 4 times per [...] Sign Reading Time Taken Comments Blood Pressure 99/60 02/11/2019 9:30 PM CDT Pulse 68 02/11/2019 9:30 PM CDT Temperature 36.8 ??C (98.2 ??F) 02/11/2019 7:47 PM CDT Respiratory Rate 16 02/11/2019 7:47 PM CDT Oxygen Saturation 95% 02/11/2019 9:30 PM CDT Inhaled Oxygen Concentration - - Weight 98 kg (216 lb 0.8 oz) 02/11/2019 7:48 PM CDT Height - - Body Mass Index 36.75 02/06/2019 9:59 AM CDT documented in this encounter Discharge Instructions AttachmentsThe following attachments cannot be sent through Care Everywhere. Dizziness (Faroese)documented in this encounter Medications at Time of Discharge Medication Sig Dispensed Refills Start Date End Date hydrocortisone Apply 1 application 0 09/18/2017 (for_HYTONE) 2.5 % topically daily as cream needed (Eczema). B complex Take 1 tablet by 0 06/13/2017 05/31/20 19 08-vnlvg-G-biot-zinc mouth daily. (DIALYVITE) [id number] nn-at-ixe-mg tablet ciprofloxacin (CIPRO) Take 1 tablet by [...] Take 2 capsules (2 360 capsule 3 /03/201812/08/2019 mg capsule mg total) by mouth 2 (two) times a day. tamsulosin (FLOMAX) 0.4 Take 1 capsule (0.4 30 capsule 2 04/25/2019 mg 24 hr capsule mg total) by mouth daily as needed (spasm pain assoc with stent). documented as of this encounter ED Notes Nicolas Archer P.A.-C., P.A. - 02/11/2019 9:52 PM CDT SUBJECTIVE CHIEF COMPLAINT/REASON FOR VISIT Vascular Access Problem (presents with c/o feeling lightheaded, having urinary incontinence, and nausea after she had a vicky cath placed in [place] today and dialysis) HISTORY OF PRESENT ILLNESS 58 year old female had a port a cath put in for dialysis today. There was some bleeding around the site afterwards but felt to be normal by team and sent home after dialysis run. On way home she got lightheaded, nausea, incontinent of urine, almost vomited. She feels better now but quite fatigued. Shenever had a LOC, and remembers the entire event. She says at that moment, she had the urge to urinate and felt to sick to stop it. She denies headache, sob, cp, abd pain, new swelling in her legs, recent fevers, cough, sore throat,congestion, or recent injuries. No other complaints. REVIEW OF SYSTEMS Gastrointestinal: Positive for nausea. Neurological: Positive for light-headedness. All other systems reviewed and are negative. OBJECTIVE Initial Vitals Temperature Pulse Rate Heart Rate Resp Rate Blood Pressure SpO2 02/11/19194602/11/19199902/11/19194602/11/19194602/11/19194602/11/191946 36.8 ??C 69 88 16 108/71 98 % Pain Score 02/11/191946 0 - No pain PHYSICAL EXAMINATION General: Alert and oriented x 3, NAD, afebrile, not ill appearing HEENT: Atraumatic, EACs bilaterally normal, TMs bilaterally normal. Eyes PERRL and EOMI, no discharge present, conjunctiva normal. Nasal exam normal. Oropharynx normal, pink, moist. No tonsillitis, no exudate, uvula midline. Neck: normal ROM, no rigidity, no significant LA. Cardiac: RRR, no murmur, no abnormal heart sounds Respiratory: NL effort, NL rate, no abnormal breath sounds Abd: soft, NT, no CVA TTP, no distention. Extremities: no edema, normal ROM, temperature normal, CR wnl. Skin: no rash, no discolorations. Cath site visualized right upper chest wall, small amount of bloodunder the dressing, does not appear to be actively bleeding. The Site appears otherwise clean, dry, intact. ASSESSMENT/PLAN Impression and Plan Evaluated. Cath site looks okay to me. She has dialysis tomorrow again and they can also follow thisat that time. Labs look okay, K is a bit low which may be contributing to her symptoms but with her ESRD, this is likely to build up again and I don't want to overshoot her by replacing here today. She feels better now than she did, she has appointment tomorrow, I offered admission if she felt to weak to go home, she would like to go home which I think is reasonable. She is steady on her feet. Tolerates PO water. Patient understands the plan without questions or concerns. They are in stable condition. Discussed red flag sxs, reasons to return, and the importance of primary care follow up if symptoms persist. They are steady on their feet. . Reviewed and summarized previous medical records including: Lab results, Radiology images/report, Documentation from previous visits and EKG images/reports. I personally reviewed the lab result(s) and my interpretation is: Abnormal ECG results: normal ECG Final Diagnoses: as of Feb 13 1253 Lightheadedness Nicolas Archer P.A.-C., P.A. 02/13/19 1258 documented in this encounter Plan of Treatment Upcoming Encounters Date Type Specialty Care Team Description 06/01/2022 Telemedicine Pharmacy An Nicholas APRN, C.NDoc, D.N.P., M.S.N. [address] [place] [address] [phone] (Nicolas wen) 07/31/2022 Lab Laboratory Medicine Tony Rubalcava M. B., ChBurke, M.Michelle. [address] [place] [address] [phone] (Nicolas wen) 07/31/2022 Lab Laboratory Medicine Tony Rubalcava M. B., ChDaviBDavi, MElvia. [address] [place] [address] [phone] ( behzad) 07/31/2022 Office Visit Transplant Tony Rubalcava M.B., ChBurke, MElvia. [address] [place] [address] [phone] (Nicolas wen) 07/31/2022 Appointment Radiology Tony Rubalcava M.B., Mukund [place] [address] [place], [place] [phone] (Wo rk) 08/01/2022 Office Visit Transplant Tony Rubalcava M.B., Mukund [place] [address] [place], [place] [phone] (Wo rk) 08/01/2022 Clinical Support Transplant Tony Rubalcava M.B., Mukund [place] [address] [place], [place] [phone] (Wo rk) documented as of this encounter Procedures Procedure Name Priority Date/Time Associated Diagnosis Comme nts ECG STAT 02/11/2019 8:19 PM Results f or this CDT procedure are i n the results section. CBC WITHOUT STAT 02/11/2019 8:14 PM Results f or this DIFFERENTIAL, B CDT procedure ar e in the results section. MAGNESIUM, S STAT 02/11/2019 8:14 PM Results f or this CDT procedure are i n the results section. BASIC METABOLIC STAT 02/11/2019 8:14 PM Result s for this PANEL, S/P CDT procedure are i n the results section. documented in this encounter Results ECG 12 Lead (STAT) (02/11/2019 8:19 PM CDT) P athologist Signature Ventricular Rate 68 BPM MUSE ECG/Min [place] Interval 180 ms MUSE QRSD Interval 94 ms MUSE QT Interval 432 ms MUSE QTC Interval 459 ms MUSE P [place] 10 degrees MUSE R [place] -25 degrees MUSE T Wave [place] 38 degrees MUSE Specimen Anatomical Collection Method Collection Time Receive d Time (Source) Location / / Volume Laterality 02/11/2019 8:19 PM 9 8:23 CDT PM CDT Impressions MUSE - 02/11/2019 8:23 PM CDT Normal sinus rhythm with sinus arrhythmia Normal ECG When compared with ECG of 28-JAN-2019 10 :24, Premature atrial complexes are no longer present Narrative This result has an attachment that is no t available. Procedure Note Jenkins, Dustin, M.D. - 02/11/2019Form atting of this note might be different from the original. IMPRESSION: Normal sinus rhythm with sinus arrhythmi a Normal ECG When compared with ECG of 28-JAN-2019 10 :24, Premature atrial complexes are no longer present Nicolas Archer P.A.-C., P.A. ECG ORDERABLES Performing Organization Address City/State/ZIP Code Phon e Number MUSE MUSE NA (ABNORMAL) Magnesium (02/11/2019 8:14 PM CDT) P athologist Signature Magnesium, S 1.6 (L) 1.7 - 2.3 02/11/2019 mg/dL 8:40 PM CDT Specimen Anatomical Collection Method Collection Time Receive d Time (Source) Location / / Volume Laterality Blood (Blood, 02/11/2019 8:14 PM 02/12/20 19 8:21 Venous) CDT PM CDT Nicolas Archer P.A.-C., P.A. LAB BLOOD ADD-ON Performing Organization Address City/State/ZIP Code Phon e Number [facility]- [address] [place] [phone] [place] [address] LAB (ABNORMAL) BMP (Basic Metabolic Panel) (02/11/2019 8:14 PM CDT) Analysis Performed At Patho logist Time Signature Potassium, P 3.0 (L) 3.6 - 5.2 02/11/2019 mmol/L 8:45 PM CDT Sodium, P 137 135 - 145 02/11/2019 mmol/L 8:45 PM CDT Chloride, P 93 (L) 98 - 107 02/11/2019 mmol/L 8:45 PM CDT Bicarbonate, P 26 22 - 29 02/11/2019 mmol/L 8:45 PM CDT Anion Gap, P 18 (H) 7 - 15 02/11/2019 8:45 PM CDT BUN (Blood Urea 25 (H) 6 - 21 02/11/2019 Nitrogen), P mg/dL 8:45 PM CDT Creatinine 5.74 (H) 0.59 - 02/11/2019 1.04 mg/dL 8:45 PM CDT eGFR-Black/Afri <15 (L) >=60 02/11/2019 can Thai mL/min/BSA 8:45 PM CDT Comment: ----ADDITIONAL INFORMATION---- Estimated GFR calculated using the 2009 CKD_EPI creatinine equation. eGFR Non-Black/ <15 (L) >=60 mL/min/BSA 02/11/2019 8:45 PM CDT Comment: ----ADDITIONAL INFORMATION---- Estimated GFR calculated using the 2009 CKD_EPI creatinine equation. Calcium, Total, P 8.8 8.6 - 10.0 mg/dL 02/11/2019 8:45 PM CDT Glucose, P 86 70 - 140 mg/dL 02/11/2019 8:45 PM CDT Specimen Anatomical Collection Method Collection Time Receive d Time (Source) Location / / Volume Laterality Blood (Blood, 02/11/2019 8:14 PM 02/12/20 19 8:21 Venous) CDT PM CDT Nicolas Archer P.A.-C., P.A. LAB BLOOD ADD-ON Performing Organization Address City/State/[facility] Code Phon e Number [facility]- [address] [place] [phone] [place] [address] LAB (ABNORMAL) CBC without Differential (02/11/2019 8:14 PM CDT) [facility] Method Time Signature Hemoglobin 11.4 (L) 11.6 - 02/11/2019 15.0 g/dL 8:34 PM CDT Hematocrit 34.6 (L) 35.5 - 02/11/2019 44.9 % 8:34 PM CDT Erythrocytes 3.76 (L) 3.92 - 02/11/2019 5.13 8:34 PM CDT x10(12)/L MCV 92.0 78.2 - 02/11/2019 97.9 fL 8:34 PM CDT RBC Distrib Width 13.8 12.2 - 02/11/2019 16.1 % 8:34 PM CDT Platelet Count 124 (L) 157 - 371 02/11/2019 x10(9)/L 8:34 PM CDT Leukocytes 7.9 3.4 - 9.6 02/11/2019 x10(9)/L 8:34 PM CDT Specimen Anatomical Collection Method Collection Time Receive d Time (Source) Location / / Volume Laterality Blood (Blood, 02/11/2019 8:14 PM 06/25/20 19 8:21 Venous) CDT PM CDT Nicolas Archer P.A.-C., P.A. LAB BLOOD ADD-ON Performing Organization Address City/State/ZIP Code Phon e Number [facility]- [address] [place] [id number] [place] [facility] documented in this encounter Visit Diagnoses Diagnosis Lightheadedness - Primary documented in this encounter Additional Health Concerns Assessment Noted Time PHQ-9 Depression Total Score: 4 01/30/2019 12:13 PM CD T documented as of this encounter
--- OUTSIDE RECORDS SUMMARY | 2022-05-25 13:24 | XMS_ITS | Encounter Summary ---
:1960 Author Organization [facility] Address [address] [place] [address] Care Team Providers Name Role Phone Unavailable Primary Care Provider Unavailable Encounter Details Date Type Department Care Team Description 03/28/2019 Hospital Encounter Department of Josr Martínez Jr., D.ODavi [address] [place] [phone] Complication D[facility] [address] [place] [phone] Fistula Subsequent [place], [place] [address] [place] [address] Social History Tobacco Use Types [...] How often do you attend amish or voodoo 1 to 4 times per [...] Sign Reading Time Taken Comments Blood Pressure 120/64 03/28/2019 12:35 PM CDT Pulse 70 03/28/2019 12:35 PM CDT Temperature - - Respiratory Rate 12 03/28/2019 12:35 PM CDT Oxygen Saturation 97% 03/28/2019 12:35 PM CDT Inhaled Oxygen Concentration - - Weight - - Height - - Body Mass Index - - documented in this encounter Medications at Time of Discharge Medication Sig Dispensed Refills Start Date End Date hydrocortisone Apply 1 application 0 09/18/2017 (for_HYTONE) 2.5 % topically daily as cream needed (Eczema). B complex Take 1 tablet by 0 06/13/2017 05/31/20 39-lkuzz-N-biot-zinc mouth daily. (DIALYVITE) [id number] ha-or-ana-mg tablet ciprofloxacin (CIPRO) Take 1 tablet by 6 tablet 0 09/03/1905/07/2019 250 mg tablet mouth evening prior to [...] H&P Notes Gino Freeman Admin Closure - 03/28/2019 1:28 PM CDT Administrative Closure: This record is being filed as incomplete for a missing H&P. Health Information Management Services documented in this encounter Procedure Terry Case M.D. - 03/28/2019 12:44 PM CDT PATIENT DISPOSITION Discharge to home. POST-PROCEDURE DIAGNOSIS Stenosis LUE fistula. PROCEDURE PERFORMED AND DESCRIPTION Fistulogram and PSYCHOTHERAPIST COUNSELOR. PROCEDURE DETAILS See Radiology Report SPECIMENS REMOVED None FINDINGS Stenosis at central end of basilic vein stent. [place] [id number] ASSISTANTS None COMPLICATIONS None. DRAINS None. IMPLANTS None. ANESTHESIA Moderate Sedation. FLUIDS Minimal. ESTIMATED BLOOD LOSS <5ml CURRENT MEDICATIONS No Medication Changes FOLLOW-UP LETTER None. MAY RETURN TO WORK Not applicable PATIENT INSTRUCTIONS No return appointment documented in this encounter Plan of Treatment Upcoming Encounters Date Type Specialty Care Team Description 06/01/2022 Telemedicine Pharmacy An Nicholas APRN, C.N.P., D.N.P., M.S.N. [address] [place] [address] [phone] (Wo rk) 07/31/2022 Lab Laboratory Medicine Tony Rubalcava M. B., Sydnie, Mukund [address] [place] [address] [phone] (Wo rk) 07/31/2022 Lab Laboratory Medicine Tony Rubalcava M. B., Sydnie, Mukund [address] [place] [address] [phone] (Wo rk) 07/31/2022 Office Visit Transplant Tony Rubalcava M.B., Sydnie, Mukund [address] [place] [address] [phone] (Wo rk) 07/31/2022 Appointment Radiology Tony Rubalcava M.B., Sydnie, MDebra [address] [place] [address] [phone] (Wo rk) 08/01/2022 Office Visit Transplant Tony Rubalcava M.B., Sydnie, M.D. [address] [place] [address] [phone] (Wo rk) 08/01/2022 Clinical Support Transplant Tony Rubalcava M.B., Mukund [place] [address] [place], [place] [phone] (Wo rk) documented as of this encounter Procedures Procedure Name Priority Date/Time Associated Comments Diagnosis IR DIALYSIS RAD - Routine 03/28/2019 12:41 Complication Results fo r FISTULAGRAM LEFT (most inpatients PM CDT Dialysis Fistula thi s procedure and all Subsequent are in the outpatients) results section. ADULT OXYGEN Routine 03/28/2019 11:51 THERAPY AM CDT documented in this encounter Results IR Dialysis Fistulagram Left [...] was created and stored. Through a 4 Bruneian dilator, an outflow study was performed. This showed moderat e narrowing at the top end the basilic vein stent at its confluence. There is m ild narrowing of the most central portion of the subclavian vein at its co nfluence. Central venous outflow is widely patent through the SVC. The stent stenosis was crossed with a Schroeder wire. A 6 Bruneian sheath was placed. The 8 mm s [...] was created and stored. Through a 4 Bruneian dilator, an outflow study was performed. This showed moderat e narrowing at the top end the basilic vein stent at its confluence. There is m ild narrowing of the most central portion of the subclavian vein at its co nfluence. Central venous outflow is widely patent through the SVC. The stent stenosis was crossed with a Schroeder wire. A 6 Bruneian sheath was placed. The 8 mm s [...] the left brachiobasilic di alysis fistula. NR Brody Rasheed Jr. IR PROCEDURES documented in this encounter Visit Diagnoses Diagnosis Complication Dialysis Fistula Subsequent documented in this encounter Administered Medications Inactive Administered Medications - up to 3 most recent administrations Medication Order MAR Action Action Date Dose Rate Site fentaNYL injection 25 mcg Given 03/28/2019 12:25 PM CDT 25 mcg (SUBLIMAZE) 25 mcg, intravenous, Every 2 min PRN, sedation, or pain before and during sedation procedure, Starting on Sun03/28/19 at 1151, Intraprocedure (RAD), Administer over 1 minute immediately prior to the procedure. May repeat every 2 minutes to a maximum of 200 mcg, until pain score of 3 or less, or until the patient meets the pain comfort goal. Do not give if respiratory rate is less than 8 breaths/minute Given 03/28/2019 12:21 PM CDT 25 mcg Given 03/28/2019 12:18 PM CDT 25 mcg flumazenil injection 0.2 mg (ROMAZICON) 0.2 mg, intravenous, Once as needed, rev ersal, Starting on Sun03/28/19 at 1151, For 1 dose, Intraprocedure (RAD), Administer once if patient has a RASS score of -4, -5 and has a respiratory rate less than 8 breaths/minute. iohexol 300 mg iodine/mL solution (OMNIP AQUE) Given 03/28/2019 12:44 PM CDT 40 mL Code/trauma/sedation medication, Starting on Sun03/28/19 at 1244 lidocaine-sodium bicarbonate 1%-8.4% inj ection Given 03/28/2019 12:44 PM CDT 5 mL infiltration, Code/trauma/sedation medication, Starting on Sun03/28/19 at 1244 midazolam (PF) injection 0.5 mg (VERSED) Given 03/28/2019 12:26 PM CDT 0.5 mg 0.5 mg, intravenous, Every 2 min PRN, sedation, Starting on Sun03/28/19 at 1151, Intraprocedure (RAD), If RASS greater than -3, give additional dose(s) of 0.5 mg IV every 2 minutes for a maximum of 5 mg. Do not give if respiratory rate is less than 8 breaths/minute. Given 03/28/2019 12:22 PM CDT 0.5 mg Given 03/28/2019 12:18 PM CDT 0.5 mg NaCl 0.9% infusion New Bag 03/28/2019 12:15 PM CDT 20 mL/hr 20 mL/hr 20 mL/hr, intravenous, Once as needed, to keep vein open, Starting on Sun03/28/19 at 1151, For 1 dose, Intraprocedure (RAD) naloxone injection 0.2 mg (NARCAN) 0.2 mg, intravenous, Once as needed, res piratory depression, Starting on Sun03/28/19 at 1151, For 1 dose, Intraprocedure (RAD ), Administer once if patient has a RASS score of -4, -5 and has a respiratory rate less than 8 breaths/minute. documented in this encounter Active and Recently Administered Medications Times are shown in CDT. PRN Medication Order 03/26/2019 03/27/2019 03/28/2019 fentaNYL injection 25 mcg (SUBLIMAZE) 1216 (Given - Provider: Comfort Murcia R.N.)1218 (Given - Provider: Comfort Murcia R.N.)1221 (Given - Provider: Comfort Murcia R.N.)1225 (Given - Provider: Comfort Murcia R.N.) 25 mcg, intravenous, Every 2 min PRN, se dation, or pain before and during sedation procedure, Starting on Sun03/28/19 at 1151, Intraprocedure (RAD), Administer over 1 minute immediately prior to the proc edure. May repeat every 2 minutes to a m aximum of 200 mcg, until pain score of 3 or less, or until the patient meets the pain comfort goal. Do not give if respiratory rate is less than 8 breaths/minute flumazenil injection 0.2 mg (ROMAZICON) 0.2 mg, intravenous, Once as needed, rev ersal, Starting on Sun03/28/19 at 1151, For 1 dose, Intraprocedure (RAD), Administer once if patient has a RASS score of -4, -5 and has a respiratory rate less than 8 breaths/minute. iohexol 300 mg iodine/mL solution (OMNIPAQUE) (COMPLETED) 1244 (Given - Provider: Terry Kingsley M.D.) Code/trauma/sedation medication, Starting on Sun03/28/19 at 1244 lidocaine-sodium bicarbonate 1%-8.4% injection (COMPLETED) 1244 (Given - Provider: Terry Kingsley M.D.) infiltration, Code/trauma/sedation medication, Starting on Sun at 1244 midazolam (PF) injection 0.5 mg (VERSED) 1216 (Given - Provider: Cmofort Murcia R.N.)1218 (Given - Provider: Comfort Murcia R.N.)1222 (Given - Provider: Comfort Murcia R.N.)1226 (Given - Provider: Comfort Murcia R.N.) 0.5 mg, intravenous, Every 2 min PRN, se dation, Starting on Sun03/28/19 at 1151, Intraprocedure (RAD), If RASS greater than -3, give additional dose(s) of 0.5 mg IV every 2 minutes for a maximum of 5 mg. Do not give if respiratory rate is less than 8 breaths/minute. NaCl 0.9% infusion (COMPLETED) 1 215 (New Bag - Provider: Comfort Murcia R.N.) 20 mL/hr, intravenous, Once as needed, t o keep vein open, Starting on Sun03/28/19 at 1151, For 1 dose, Intraprocedure (RAD) naloxone injection 0.2 mg (NARCAN) 0.2 mg, intravenous, Once as needed, res piratory depression, Starting on Sun03/28/19 at 1151, For 1 dose, Intraprocedure (RAD), Administer once if patient has a RASS score of -4, -5 and has a respiratory rate less than 8 breaths/minute. documented in this encounter Additional Health Concerns Assessment Noted Time PHQ-9 Depression Total Score: 4 01/30/2019 12:13 PM CD T documented as of this encounter
--- OUTSIDE RECORDS SUMMARY | 2022-05-25 13:24 | XMS_ITS | Encounter Summary ---
:1960 Author Organization [facility] Address [address] [place] [address] Care Team Providers Name Role Phone Unavailable Primary Care Provider Unavailable Reason for Visit Reason Comments Med Refill Encounter Details Date Type Department Care Team Description 03/19/2019 Refill Division of Nephrology and Phillip, Joel Bruno APRN, Med Refill Hypertension in [place], C.N.P ., M.S.N. [place] [address] [facility] [address] [place] [address] [place] [address] [phone] Social History Tobacco Use Types Packs/Day Years [...] How often do you attend restorationism or congregational 1 to 4 times per [...] - Deanne Fisher APRN, C.N.P., M.S.N. - 03/19/2019 9:39 AM CDT While rounding at the [facility] outpatient dialysis unit today, Ms. Wray reported the need for a refill of her prednisone. Per the Epic list, it appeared she should still have a refill remaining. I have confirmed with her pharmacy that she dose have 1 refill remaining for 90 tablets. Theywill refill this today. I have updated Ms. Wray regarding this via phone call. documented in this encounter Plan of Treatment Upcoming Encounters Date Type Specialty Care Team Description 06/01/2022 Telemedicine Pharmacy An Nicholas APRN, C.NDoc, D.N.P., M.S.N. [address] [place] [address] 55 [phone] (Nicolas wen) 07/31/2022 Lab Laboratory Medicine Tony Rubalcava M. B., Yvonne.Maurice, M.Whitney [address] [place] [address] 55 [phone] (Nicolas wen) 07/31/2022 Lab Laboratory Medicine Tony Rubalcava M. B., Sydnie, Mukund [address] [place] [address] [phone] (Wo rk) 07/31/2022 Office Visit Transplant Tony Rubalcava M.B., Sydnie, Mukund [address] [place] [address] [phone] (Wo rk) 07/31/2022 Appointment Radiology Tony Rubalcava M.B., Sydnie, Mukund [address] [place] [address] [phone] (Wo rk) 08/01/2022 Office Visit Transplant Tony Rubalcava M.B., Sydnie, Mukund [address] [place] [address] [phone] (Wo rk) 08/01/2022 Clinical Support Transplant Tony Rubalcava M.B., Sydnie, Mukund [address] [place] [address] 55 [phone] (Wo rk) documented as of this encounter Visit Diagnoses Not on filedocumented in this encounter Additional Health Concerns Assessment Noted Time PHQ-9 Depression Total Score: 4 01/30/2019 12:13 PM CD T documented as of this encounter
--- OUTSIDE RECORDS SUMMARY | 2022-05-25 13:24 | XMS_ITS | Encounter Summary ---
:1960 Author Organization [facility] Address [address] [place] [address] Care Team Providers Name Role Phone Unavailable Primary Care Provider Unavailable Encounter Details Date Type Department Care Team Description 03/14/2019 Hospital Encounter Department of Tay Lozano Renal Laboratory Medicine Amber Hernandez (HCC) and Pathology, [place], [place] [address] [place] [address] Social History Tobacco Use Types Packs/Day Years [...] How often do you attend religion or pentecostal 1 to 4 times per [...] 1 tablet by 0 06/13/2017 05/31/20 19 07-hmoie-G-biot-zinc mouth daily. (DIALYVITE) [id number] lq-im-bpl-mg tablet ciprofloxacin (CIPRO) Take 1 tablet by [...] Nicholas APRN, C.N.P., D.N.P., M.S.N. [address] [place] [address] 55 [phone] (Nicolas wen) 07/31/2022 Lab Laboratory Medicine Tony Rubalcava M. B., Ch.B., M.D. [address] [place] [address] 55 [phone] (Nicolas wen) 07/31/2022 Lab Laboratory Medicine Tony Rubalcava M. B., Ch.B., M.D. [address] [place] [address] 55 [phone] (Nicolas wen) 07/31/2022 Office Visit Transplant Tony Rubalcava M.B., ChDaviBDavi, M.D. [address] [place] [address] 55 [phone] (Nicolas wen) 07/31/2022 Appointment Radiology Tony Rubalcava M.B., Mukund [place] [address] [place], [place] 55 [phone] (Wo rk) 08/01/2022 Office Visit Transplant Tony Rubalcava M.B., Mukund [place] [address] [place], [place] 55 [phone] (Wo rk) 08/01/2022 Clinical Support Transplant Tony Rubalcava M.B., Mukund [place] [address] [place], [place] 55 [phone] (Wo rk) documented as of this encounter Procedures Procedure Name Priority Date/Time Associated Comments Diagnosis TACROLIMUS LEVEL, B Routine 03/28/2019 5:30 AM Transplant Jessica l Results for this CDT (HCC) procedure are i n the results section. documented in this encounter Results (ABNORMAL) Tacrolimus Level (03/28/2019 5:30 AM CDT) P athologist Signature Tacrolimus, B 4.9 (L) 5.0-15.0 [...] Laterality Blood (Blood, 03/28/2019 5:30 AM 04/01/20 19 7:15 Venous) CDT AM CDT Resulting Agency Comment Mailed In Specimen Tay T Fettes P.A.-C. LAB BLOOD NON ADD-ON Performing Organization Address City/State/ZIP Code Phon e Number [facility] [address] [place], [place] [address] [facility] documented in this encounter Visit Diagnoses Diagnosis Transplant Renal (HCC) documented in this encounter Additional Health Concerns Assessment Noted Time PHQ-9 Depression Total Score: 4 01/30/2019 12:13 PM CD T documented as of this encounter
--- OUTSIDE RECORDS SUMMARY | 2022-05-25 13:25 | XMS_ITS | Encounter Summary ---
:1960 Author Organization [facility] Address 200 [place] [address] Care Team Providers Name Role Phone Unavailable Primary Care Provider Unavailable Reason for Referral Specialty Diagnoses / Procedures Referred By Contact Refer red To Contact Deanne Fisher APRN, [facility] Fracisco.N.Donna, M.S.N. 200 [place] [address] Referral ID Status Reason Start Date Expiration Date Visits Requ ested Visits Authorized Scheduling Instructions After tunneled catheter placement in IR Encounter Details Date Type Department Care Team Description 02/11/2019 Orders Only Division of Nephrology Deanne Fisher hronic Failure Renal and Hypertension in CHRISTOPHER Bruno C.N.PDavi, End Stage Renal [place], [place] M.S.N. Disease Dialysis [address] [facility] Dependent (HCC) [place], [place] (Primary Dx) [phone] Social History Tobacco Use Types Packs/Day Years [...] How often do you attend confucianist or adventist 1 to 4 times per [...] Nicholas APRN, C.N.P., D.N.P., M.S.N. [address] [place] [address] 55 [phone] (Wo rk) 07/31/2022 Lab Laboratory Medicine Tony Rubalcava M. B., ChDaviBDavi, MElvia. [address] [place] [address] 55 [phone] (Wo rk) 07/31/2022 Lab Laboratory Medicine Tony Rubalcava M. B., Ch.Maurice, MElvia. [address] [place] [address] 55 [phone] (Wo rk) 07/31/2022 Office Visit Transplant Tony Rubalcava M.B., Sydnie, Mukund [address] [place] [address] 55 [phone] (Wo rk) 07/31/2022 Appointment Radiology Tony Rubalcava M.B., Sydnie, Mukund [address] [place] [address] 55 [phone] (Wo rk) 08/01/2022 Office Visit Transplant Tony Rubalcava M.B., Sydnie, Mukund [address] [place] [address] 55 [phone] (Wo rk) 08/01/2022 Clinical Support Transplant Tony Rubalcava M.B., Sydnie, Mukund [address] [place] [address] 55 [phone] (Wo rk) Scheduled Referrals Name Type Priority Associated Order Schedule Diagnoses Hemodialysis Outpatient Routine Chronic Failure 1 Occurrence s Transient; Referral Renal End Stage starting Renal Disease until 02/12/20 22 Dialysis Dependent (HCC) documented as of this encounter Visit Diagnoses Diagnosis Chronic Failure Renal End Stage Renal Di sease Dialysis Dependent (HCC) - Primary documented in this encounter Additional Health Concerns Assessment Noted Time PHQ-9 Depression Total Score: 4 01/30/2019 12:13 PM CD T documented as of this encounter
--- OUTSIDE RECORDS SUMMARY | 2022-05-25 13:25 | XMS_ITS | Encounter Summary ---
:1960 Author Organization [facility] Address [address] [place] [address] Care Team Providers Name Role Phone Unavailable Primary Care Provider Unavailable Encounter Details Date Type Department Care Team Description 02/10/2019 Orders Only Division of Nephrology Deanne Fisher omplication Dialysis and Hypertension in L, SPEECH AND LANGUAGE ASSISTANT, C.N.P., Fist casi Subsequent [place], [place] M.S.N. (Primary Dx) [address] [facility] [address] [place] [phone] Social History Tobacco Use Types Packs/Day Years [...] How often do you attend shinto or adventism 1 to 4 times per [...] An Nicholas APRN C.NDaviP., D.N.P., M.S.N. [address] [place] [address] 55 [phone] (Wo rk) 07/31/2022 Lab Laboratory Medicine Tony Rubalcava M. B., Sydnie, MDebra [address] [place] [address] 55 [phone] (Wo rk) 07/31/2022 Lab Laboratory Medicine Tony Rubalcava M. B., ChBurke, MDebra [address] [place] [address] 55 [phone] (Wo rk) 07/31/2022 Office Visit Transplant Tony Rubalcava M.B., Sydnie, MDebra [address] [place] [address] 55 [phone] ( rk) 07/31/2022 Appointment Radiology Tony Rubalcava M.B., Sydnie, MDebra [address] [place] [address] 55 [phone] (Wo rk) 08/01/2022 Office Visit Transplant Tony Rubalcava M.B., Sydnie, Mukund [address] [place] [address] 55 [phone] (Wo rk) 08/01/2022 Clinical Support Transplant Tony Rubalcava M.B., Mukund [place] [address] [place] [address] 55 [phone] (Wo rk) documented as of this encounter Visit Diagnoses Diagnosis Complication Dialysis Fistula Subsequent - Primary documented in this encounter Additional Health Concerns Assessment Noted Time PHQ-9 Depression Total Score: 4 01/30/2019 12:13 PM CD T documented as of this encounter
--- OUTSIDE RECORDS SUMMARY | 2022-05-25 13:25 | XMS_ITS | Encounter Summary ---
:1960 Author Organization [facility] Address [address] [place] [address] Care Team Providers Name Role Phone Unavailable Primary Care Provider Unavailable Encounter Details Date Type Department Care Team Description 02/10/2019 Documentation Division of Nephrology and Josr Martínez Hypertension in [place], ., D.O. [place] [address] [facility] 200 [place] [address] [phone] (Wo rk) Social History Tobacco Use Types [...] 12/23/2021 relatives? How often do you attend tenriism or confucianist 1 to 4 times per year 12/23/2021 services? Do you belong to any clubs or organizations such No 12/23/2021 as tenriism groups, unions, fraternal or athletic groups, or [...] Progress Notes Steve Martínez Jr., D.O. - 02/10/2019 6:15 AM CDT Phone call [phone] 19: I was notified by our [place] GUILLEN colleague Fay that her L UE AVF is again clotted. Shehad essentially no breakfast today. She is not diabetic. BP is 127/77, she is +2.7 KG to her edw. She was scheduled for fistulogram for tomorrow-- see prior notes, due to changes in bruit and thrill noted by the team. Durng her last 2 declots, she had prolonged bleeding from the TPA. documented in this encounter Plan of Treatment Upcoming Encounters Date Type Specialty Care Team Description 06/01/2022 Telemedicine Pharmacy An Nicholas APRN, C.N.P., D.N.P., M.S.N. [address] [place] [address] 55 [phone] (Nicolas wen) 07/31/2022 Lab Laboratory Medicine Tony Rubalcava M. B., Ch.B., M.D. [address] [place], [place] 55 [phone] (Nicolas wen) 07/31/2022 Lab Laboratory Medicine Tony Rubalcava M. B., Sydnie, Mukund [address] [place] [address] 55 [phone] (Wo rk) 07/31/2022 Office Visit Transplant Tony Rubalcava M.B., Sydnie, Mukund [address] [place] [address] 55 [phone] (Wo rk) 07/31/2022 Appointment Radiology Tony Rubalcava M.B., Sydnie, Mukund [address] [place] [address] 55 [phone] (Wo behzad) 08/01/2022 Office Visit Transplant Tony Rubalcava M.B., Sydnie, Mukund [address] [place] [address] 55 [phone] (Wo rk) 08/01/2022 Clinical Support Transplant Tony Rubalcava M.B., Sydnie, uMkund [address] [place] [address] 55 [phone] (Wo rk) documented as of this encounter Visit Diagnoses Not on filedocumented in this encounter Additional Health Concerns Assessment Noted Time PHQ-9 Depression Total Score: 4 01/30/2019 12:13 PM CD T documented as of this encounter
--- OUTSIDE RECORDS SUMMARY | 2022-05-25 13:25 | XMS_ITS | Encounter Summary ---
:1960 Author Organization [facility] Address [address] [place] [address] Care Team Providers Name Role Phone Unavailable Primary Care Provider Unavailable Encounter Details Date Type Department Care Team Description 02/11/2019 Orders Only Division of Nephrology Steve Martínez omplication Dialysis Fistula Subsequent (Primary Dx); and Hypertension in Fracisco Garcia D.O. Chronic Kidney Disease Stage 5 Glomerula r Filtration Rate Less Than 15 (HCC) [place], [place] [address] [facility] [address] [place] [address] [phone] Social History Tobacco Use Types Packs/Day Years [...] Nicholas APRN C.N.P., D.N.P., M.S.N. [address] [place] [address] 55 [phone] (Wo rk) 07/31/2022 Lab Laboratory Medicine Tony Rubalcava M. B., Sydnie, MDebra [address] [place] [address] 55 [phone] (Wo rk) 07/31/2022 Lab Laboratory Medicine Tony Rubalcava M. B., Sydnie, Mukund [address] [place] [address] 55 [phone] (Wo rk) 07/31/2022 Office Visit Transplant Tony Rubalcava M.B., Sydnie, Mukund [address] [place] [address] 55 [phone] (Wo rk) 07/31/2022 Appointment Radiology Tony Rubalcava M.B., Sydnie, Mukund [address] [place] [address] 55 [phone] (Wo rk) 08/01/2022 Office Visit Transplant Tony Rubalcava M.B., Mukund [place] [address] [place], [place] 55 [phone] (Wo rk) 08/01/2022 Clinical Support Transplant Tony Rubalcava M.B., Mukund [place] [address] [place], [place] 55 [phone] (Wo rk) documented as of this encounter Results IR Dialysis / High Flow Catheter Placement (02/11/2019 2:13 PM CDT) Anatomical Region Laterality Modality Body, Vascular Interventional RST LOS, Vascular N/A X-Ray Angiography Interventional ARZ LOS, Vascular Interventional FLA LOS Specimen (Source) Anatomical Collection Method Collection Time Re ceived Time Location / / Volume Laterality 02/11/2019 2:33 PM CDT Impressions 02/11/2019 4:15 PM CDT Right internal jugular vein palindrome catheter placement. Catheter ready for use. EP Narrative 02/11/2019 4:15 PM CDT EXAM: IR DIALYSIS / HIGH FLOW CATHETER PLACEMENT CLINICAL HISTORY: 58-year-old female req uiring dialysis and needing a palindrome catheter. TECHNIQUE: Right neck was prepped and dr aped in the usual sterile fashion. The right internal jugular vein was puncture d under ultrasound guidance. Micropuncture needle placed. Micropunctu re sheath advanced over the wire which was passed through the needle. Intravasc ular component of the catheter was measured. A single part tunnel was creat ed. A 23 cm cuff to tip palindrome catheter was then placed via the peel-aw ay sheath. Tip is at the cavoatrial junction. Ready for immediate use. PREPROCEDURE: Patient seen, evaluated, h istory [...] procedure. The total intra-procedural sedation time was: 15 m inutes. Using ultrasound guidance to access vessel, patency was shown and aft er anesthetizing the skin with lidocaine the right internal jugular vein was punc tured successfully. A permanent image was created and stored. For placement of this central venous access, we followed catheter checklist and a standardized pr otocol. The position of the catheter tip was confirmed under fluoroscopic guidanc e, and a final image of the catheter position was obtained. Ready for use. Procedure Note Shlomo Monreal M.D. - 02/11/2019Formatti ng of this note might be different from the original. EXAM: IR DIALYSIS / HIGH FLOW CATHETER P LACEMENT CLINICAL HISTORY: 58-year-old female req uiring dialysis and needing a palindrome catheter. TECHNIQUE: Right neck was prepped and dr amrita in the usual sterile fashion. The right internal jugular vein was puncture d under ultrasound guidance. Micropuncture needle placed. Micropunctu re sheath advanced over the wire which was passed through the needle. Intravasc ular component of the catheter was measured. A single part tunnel was creat ed. A 23 cm cuff to tip palindrome catheter was then placed via the peel-aw ay sheath. Tip is at the cavoatrial junction. Ready for immediate use. PREPROCEDURE: Patient seen, evaluated, h istory [...] procedure. The total intra-procedural sedation time was: 15 m inutes. Using ultrasound guidance to access vessel, patency was shown and aft er anesthetizing the skin with lidocaine the right internal jugular vein was punc tured successfully. A permanent image was created and stored. For placement of this central venous access, we followed catheter checklist and a standardized pr otocol. The position of the catheter tip was confirmed under fluoroscopic guidanc e, and a final image of the catheter position was obtained. Ready for use. IMPRESSION: Right internal jugular vein palindrome c atheter placement. Catheter ready for use. EP Michelle Rasheed Jr..ODavi [place] IR PROCEDURES documented in this encounter [...]
--- OUTSIDE RECORDS SUMMARY | 2022-05-25 13:25 | XMS_ITS | Encounter Summary ---
:1960 Author Organization [facility] Address [address] [place] [address] Care Team Providers Name Role Phone Unavailable Primary Care Provider Unavailable Reason for Referral Specialty Diagnoses / Procedures Referred By Contact Refer red To Contact Deanne Fisher APRN, [facility] Fracisco.N.Donna, M.S.N. [address] [place] [phone] Referral ID Status Reason Start Date Expiration Date Visits Requ ested Visits Authorized Scheduling Instructions After tunneled catheter placement in IR Encounter Details Date Type Department Care Team Description 02/11/2019 Hospital Encounter Division of Deanne Fisher Chron ic Failure Renal End Stage Renal Disease Dialysis Dependent (HCC) (Primary Dx); Nephrology and CHRISTOPHER Bruno C.N.PDavi, Complicat ion Dialysis Fistula Subsequent Hypertension, M.S.N. [facility], 200 [facility] [address] [place] [address] [place], [place] (Work) [phone] Social History Tobacco Use [...] How often do you attend congregation or episcopal 1 to 4 times per [...] Sign Reading Time Taken Comments Blood Pressure 103/57 02/11/2019 6:33 PM CDT Pulse 69 02/11/2019 6:33 PM CDT Temperature 36.5 ??C (97.7 ??F) 02/11/2019 6:31 PM CDT Respiratory Rate 18 02/11/2019 3:30 PM CDT Oxygen Saturation - - Inhaled Oxygen Concentration - - Weight - - Height - - Body Mass Index - - documented in this encounter Medications at Time of Discharge Medication Sig Dispensed Refills Start Date End Date hydrocortisone Apply 1 application 0 09/18/2017 (for_HYTONE) 2.5 % topically daily as cream needed (Eczema). B complex Take 1 tablet by 0 06/13/2017 05/31/20 19 88-lzsxw-S-biot-zinc mouth daily. (DIALYVITE) [phone] mw-ty-sbi-mg tablet ciprofloxacin (CIPRO) Take 1 tablet by [...] An Nicholas APRN, C.N.P., Clement., M.S.N. [address] [place] [address] [phone] (Wo rk) 07/31/2022 Lab Laboratory Medicine Tony Rubalcava M. B., Sydnie, Mukund [address] [place] [address] 55 [phone] (Wo rk) 07/31/2022 Lab Laboratory Medicine Tony Rubalcava M. B., Sydnie, Mukund [address] [place] [address] 55 [phone] (Wo rk) 07/31/2022 Office Visit Transplant Tony Rubalcava M.B., Sydnie, Mukund [address] [place] [address] 55 [phone] (Wo rk) 07/31/2022 Appointment Radiology Tony Rubalcava M.B., Sydnie, Mukund [address] [place] [address] 55 [phone] (Wo rk) 08/01/2022 Office Visit Transplant Tony Rubalcava M.B., Sydnie, Mukund [address] [place] [address] 55 [phone] (Wo rk) 08/01/2022 Clinical Support Transplant Tony Rubalcava M.B., Sydnie, Mukund [address] [place] [address] 55 [phone] (Wo rk) Scheduled Referrals Name Type Priority Associated Order Schedule Diagnoses Hemodialysis Outpatient Routine Chronic Failure Once for 1 Transient; Referral Renal End Stage Occurrences Renal Disease starting 02/11 Dialysis Dependent until ([facility]) documented as of this encounter Visit Diagnoses Diagnosis Chronic Failure Renal End Stage Renal Di sease Dialysis Dependent (HCC) - Primary Complication Dialysis Fistula Subsequent documented in this encounter Administered Medications Inactive Administered Medications - up to 3 most recent administrations Medication Order MAR Action Action Date Dose Rate Site NaCl 0.9 % bolus 1-1,000 mL New Bag 02/11/2019 6:21 PM CDT 20 mL 1-1,000 mL, intravenous, As needed, for dialysis including prime, rinse back, gasoline locomotive crane operator, flush, or hypotension, Starting on Sun02/11/19 at 1513, For prime and rinse back: Prime to [...] 400 mL of 0.9% NaCL. New Bag 02/11/2019 6:20 PM CDT 280 mL New Bag 02/11/2019 3:16 PM CDT 10 mL documented in this encounter Additional Health Concerns Assessment Noted Time PHQ-9 Depression Total Score: 4 01/30/2019 12:13 PM CD T documented as of this encounter
--- OUTSIDE RECORDS SUMMARY | 2022-05-25 13:25 | XMS_ITS | Encounter Summary ---
:1960 Author Organization [facility] Address [address] [place] [address] Care Team Providers Name Role Phone Unavailable Primary Care Provider Unavailable Encounter Details Date Type Department Care Team Description 02/11/2019 Documentation Division of Nephrology and Josr Martínez Hypertension in [place], ., D.O. [place] [address] [facility] 200 [place] [phone] [phone] (Wo rk) Social History Tobacco Use Types [...] How often do you attend yazidi or muslim 1 to 4 times per [...] Progress Notes Steve Martínez Jr., D.O. - 02/11/2019 7:54 AM CDT Urgent phone call this morning at 7 40 a.m. After yesterday's heroic work done by our interventional radiologist, unfortunately our nurses are unable to cannulate her fistula out in [place] this morning. There is an absence of bruit and thrill, they were able to draw back some extremely dark venous blood per unable to place an arterial needle. The patient feels relatively well. She has had very little to eat or drink. However she is approximately 3 kg above her target weight, her weight this morning is 101.3 kg, with her target weight being 98.5 kg. Her blood pressure this morning is 166/77, her pulse ox on room air is 100%, she is comfortable. Her arm is quite bruised according to the team. Clearly this is becoming a desperate situation. Impression, plan: ESRD, no dialysis access: 1. Will send off a stat potassium 2. I have asked for our interventional radiologist to place a tunneled dialysis catheter such that we can successfully dialyze her 3. We will arrange for her to have outpatient dialysis today, at our [facility] unit and even if this is a shortened session, this will allow us to provide her some safety 4. If her potassium is dangerously elevated, defined as greater than 6.5 mEq per L or clinical palpitations or hemodynamic instability we will have no choice but to have her go via ambulance to [facility] where she would require potassium shifting maneuvers, monitored placement of dialysis catheter and provision of dialysis as an inpatient. 5. I do not believe it is worth attempting declot, but I will leave this to our interventional radiologists. I would like a catheter placed, that way we have a secure access. 6. She will then have dialysis again in [place] as per her regular schedule on Sunday. 7. We discussed the potential of her going to the [facility] [place], as her transportation would be easier. However, this would not provide for her dialysis requirements. documented in this encounter Plan of Treatment Upcoming Encounters Date Type Specialty Care Team Description 06/01/2022 Telemedicine Pharmacy An Nicholas APRN, C.N.P., D.N.P., M.S.N. [address] [place] [address] 55 [phone] (Wo rk) 07/31/2022 Lab Laboratory Medicine Tony Rubalcava M. B., Sydnie, MElvia. [address] [place] [address] 55 [phone] (Wo rk) 07/31/2022 Lab Laboratory Medicine Tony Rubalcava M. B., ChBurke, MDebra [address] [place] [address] 55 [phone] (Wo rk) 07/31/2022 Office Visit Transplant Tony Rubalcava M.B., ChBurke, MDebra [address] [place] [address] 55 [phone] (Wo rk) 07/31/2022 Appointment Radiology Tony Rubalcava M.B., Sydnie, MDebra [address] [place] [address] 55 [phone] (Wo rk) 08/01/2022 Office Visit Transplant Tony Rubalcava M.B.Sydnie M.D. [address] [place], [place] 55 [phone] (Wo behzad) 08/01/2022 Clinical Support Transplant Tony Rubalcava M.B., Mukund Otoole [address] [place], [place] 55 [phone] (Nicolas wen) documented as of this encounter Visit Diagnoses Not on filedocumented in this encounter Additional Health Concerns Assessment Noted Time PHQ-9 Depression Total Score: 4 01/30/2019 12:13 PM CD T documented as of this encounter
--- OUTSIDE RECORDS SUMMARY | 2022-05-25 13:25 | XMS_ITS | Encounter Summary ---
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 (Primary Dx) [address] [facility] [address] [place] [phone] Social History Tobacco Use Types Packs/Day Years [...] How often do you attend sikh or voodoo 1 to 4 times per [...] this encounter Miscellaneous Notes Addendum Note - Mary Jo Fisher APRN, C.N.Donna, M.S.N. - 02/10/2019 3:32 PM CDT Addended by: MARY JO FISHER on: 02/11/2019 08:11 AM Modules accepted: Orders documented in this encounter Plan of Treatment Upcoming Encounters Date Type Specialty Care Team Description 06/01/2022 Telemedicine Pharmacy An Nicholas APRN, C.N.Donna, Michelle.N.P., M.S.N. [address] [place] [address] 55 [phone] (Nicolas wen) 07/31/2022 Lab Laboratory Medicine Tony Rubalcava M. B., Ch.B., M.D. [address] [place] [address] 55 [phone] (Nicolas wen) 07/31/2022 Lab Laboratory Medicine Tony Rubalcava M. B., Ch.B., M.D. [address] [place] [address] 55 [phone] (Nicolas wen) 07/31/2022 Office Visit Transplant Tony Rubalcava M.B., Sydnie, Mukund [address] [place] [address] 55 [phone] (Wo rk) 07/31/2022 Appointment Radiology Tony Rubalcava M.B., Sydnie, Mukund [address] [place] [address] 55 [phone] (Wo rk) 08/01/2022 Office Visit Transplant Tony Rubalcava M.B., Sydnie, Mukund [address] [place] [address] 55 [phone] (Wo rk) 08/01/2022 Clinical Support Transplant Tony Rubalcava M.B., Sydnie, Mukund [address] [place] [address] 55 [phone] (Wo rk) documented as of this encounter Visit Diagnoses Diagnosis Complication Dialysis Fistula Subsequent - Primary documented in this encounter Additional Health Concerns Assessment Noted Time PHQ-9 Depression Total Score: 4 01/30/2019 12:13 PM CD T documented as of this encounter
--- OUTSIDE RECORDS SUMMARY | 2022-05-25 13:25 | XMS_ITS | Encounter Summary ---
:1960 Author Organization [facility] Address [address] [place] [address] Care Team Providers Name Role Phone Unavailable Primary Care Provider Unavailable Encounter Details Date Type Department Care Team Description 02/07/2019 Documentation Division of Nephrology [facility] Trev[facility] [address] [place] [address] [place] [phone] [place] [address] [phone] Social History Tobacco Use Types Packs/Day Years [...] How often do you attend muslim or sikh 1 to 4 times per [...] encounter Nursing Notes Elo Trevizo R.N. - 02/07/2019 11:[address] Martínez, [phone] ?? 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 HISTORY OF PRESENT ILLNESS ACCESS: [place] AV Fistula Date placed - 01/09/17 Provider - Dr. Vanegas ?? LOCATION OF ACCESS: Left Brachial Basilic ?? PERTINENT PROCEDURAL HISTORY: Patient referred for fistulogram and angioplasty as indicated. She is being referred due to high venous pressures and change in the sound of the bruit. Her last declot procedure was on 12/23/18. She has had 5 fistulograms and 2 declot procedures on this fistula. She dialyzes at the [facility] on a Sunday, Sunday and Sunday schedule. ?? DIABETES: ?No medications ?? ANTICOAGULATION: ?No medications ?? LABORATORY RESULTS: ?Current Labs in [facility] on 01/28 ?? IMPRESSION/REPORT/PLAN SPECIFIC PATIENT INSTRUCTIONS: ?? [facility] 02/11/19 at 09:30 am. This information was faxed to the patient's dialysis unit who will share these instructions with her. You must have a health education assistant to drive you home due to the [...] to three fourths of the day in [place] for this procedure. ?? There is generally some waiting involved prior to the procedure. ?? Post Access Instructions: Resume usual dialysis schedule. documented in this encounter Plan of Treatment Upcoming Encounters Date Type Specialty Care Team Description 06/01/2022 Telemedicine Pharmacy An Nicholas APRN, C.N.P., D.N.P., M.S.N. [address] [place] [address] 55 [phone] (Wo rk) 07/31/2022 Lab Laboratory Medicine Tony Rubalcava M. B., Sydnie, MDebra [address] [place] [address] 55 [phone] (Wo rk) 07/31/2022 Lab Laboratory Medicine Tony Rubalcava M. B., Sydnie, Mukund [address] [place] [address] 55 [phone] (Wo rk) 07/31/2022 Office Visit Transplant Tony Rubalcava M.B., Sydnie, MDebra [address] [place] [address] 55 [phone] (Wo rk) 07/31/2022 Appointment Radiology Tony Rubalcava M.B., Sydnie, MDebra [address] [place] [address] 55 [phone] (Wo rk) 08/01/2022 Office Visit Transplant Tony Rubalcava M.B., Ch.Mukund Richards [address] [place], [place] 55 [phone] (Wo rk) 08/01/2022 Clinical Support Transplant Tony Rubalcava M.B., Mukund Otoole [address] [place], [place] 55 [phone] (Wo rk) documented as of this encounter Visit Diagnoses Not on filedocumented in this encounter Additional Health Concerns Assessment Noted Time PHQ-9 Depression Total Score: 4 01/30/2019 12:13 PM CD T documented as of this encounter
--- OUTSIDE RECORDS SUMMARY | 2022-05-25 13:25 | XMS_ITS | Encounter Summary ---
:1960 Author Organization [facility] Address [address] [place] [address] Care Team Providers Name Role Phone Unavailable Primary Care Provider Unavailable Reason for Visit Transplant (Routine) - Closed Specialty Diagnoses / Procedures Referred By Contact Refer red To Contact Transplant Surgery / Diagnoses Pretransplant Recipient Evaluation Exam Chronic Kidney Disease Stage 5 GFR Less Than 15 Dialysis Dependent (HCC) [facility] [address] [place] [phone] Referral ID Status Reason Start Date Expiration Date Visits Requ ested Visits Authorized [id number] Closed 01/01/2019 01/01/2020 1 1 Encounter Details Date Type Department Care Team Description 01/30/2019 Office Visit Juvenal Gonzalez Pre transplant Recipient Evaluation Exam (Primary Dx); [place] for C MDebra Chronic Kidney Disease Stage 5 GFR Less Than 15 Dialysis Dependent (HCC) Transplantation and [address] [place] [address] in [place], [place] [address] [place] [address] [place] [address] (Work) [phone] Social History Tobacco Use Types Packs/Day Years [...] How often do you attend quaker or christian 1 to 4 times per [...] AM CDT documented as of this encounter H&P Notes TextorJuvenal M.D. - 01/30/2019 4:30 PM CDT KIDNEY TRANSPLANT MEDICAL EVALUATION WRAP UP VISIT 1. End-stage renal disease, unclear etiology. 2. donor renal allograft, 2007, [facility], failed 2017. 3. 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 4. Transplant re-evaluation. REASON FOR VISIT: Shabnam Wray is a 58 y.o. female who presents for kidney transplant evaluation wrap up visit. I reviewed the findings of her evaluation in some detail. She managed with a kidney transplant for 9 years successfully and is generally familiar with the immunosuppressive management. I underscore the importance of withholding smoking and working to lower her body mass index. She is aware of our concerns but acknowledges this will be difficult for her. 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 There are no known potential living donors available to her. Dobutamine stress echocardiogram demonstrated no evidence of active coronary disease. HISTORY OF PRESENT ILLNESS: Potential living kidney donor(s): no ASSESSMENT, REPORT & PLAN: #1 Pretransplant Recipient Evaluation Exam #2 Chronic Kidney Disease Stage 5 GFR Less Than 15 Dialysis Dependent (HCC) 1. 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 Recurrence risk: moderate due to sensitization 3. Consent form obtained: 2017 4. Previous transplants (date, type): Donor transplant, [facility], 2007 5. Dialysis (date, type): Hemodialysis since 2016 6. Diabetes (PTx candidate): pre-diabetes (glucose 120 mg/dL) 7. BMI: 37.7 8. Functional status ; C = Could be better (no regular exercise and slight limitations); 9. Cardiopulmonary issues: DSE negative 2018, ECG: PAC's 10. History of malignancies: N/A 11. Health maintenance (colonoscopy, mammogram): up to date 12. History of serious infections: N/A 13. Urinary bladder dysfunction: NA 14. Hematology/coagulation: no barriers 15. Other medical: continued smoking, obesity 16. Anti-HLA antibodies: Moderate Class I and II antibodies 17. Surgical issues: obesity 18. Peripheral Vascular Disease (PVD): N/A 19. Psychosocial/financial concerns: Reviewed with psych: prev. Depression PACT=2 20. Pending issues: none 21. Plans for immunosuppression: conventional for 2nd transplant 22. Preferred waitlist follow-up for next year: on site The patient was counseled about the risks, benefits and alternative of a transplant as well as the potential risks of immunosuppression medications. Patient was also notified that the overall evaluation will be discussed in the multidisciplinary kidney/pancreas transplant recipients selection committee meeting where a final recommendation on the patient's suitability for transplantation will be made. Juvenal Plummer M.D. documented in this encounter Plan of Treatment Upcoming Encounters Date Type Specialty Care Team Description 06/01/2022 Telemedicine Pharmacy An Nicholas APRN, C.N.P., D.N.P., M.S.N. [address] [place] [address] [phone] (Wo rk) 07/31/2022 Lab Laboratory Medicine Tony Rubalcava M. B., Sydnie, MDebra [address] [place] [address] 55 [phone] (Wo rk) 07/31/2022 Lab Laboratory Medicine Tony Rubalcava M. B., Sydnie, MDebra [address] [place] [address] 55 [phone] (Wo rk) 07/31/2022 Office Visit Transplant Tony Rubalcava M.B., Sydnie, MDebra [address] [place] [address] 55 [phone] (Wo rk) 07/31/2022 Appointment Radiology Tony Rubalcava M.B., Sydnie, MDebra [address] [place] [address] 55 [phone] (Wo rk) 08/01/2022 Office Visit Transplant Tony Rubalcava M.B., Sydnie, MDebra [address] [place] [address] 55 [phone] (Wo rk) 08/01/2022 Clinical Support Transplant Tony Rubalcava M.B., Sydnie, MDaviDDavi [address] [place] [address] 55 [phone] (Wo rk) documented as of this encounter Visit Diagnoses Diagnosis Pretransplant Recipient Evaluation Exam - Primary Chronic Kidney Disease Stage 5 GFR Less Than 15 Dialysis Dependent (HCC) documented in this encounter Additional Health Concerns Assessment Noted Time PHQ-9 Depression Total Score: 4 01/30/2019 12:13 PM CD T documented as of this encounter
--- OUTSIDE RECORDS SUMMARY | 2022-05-25 13:25 | XMS_ITS | Encounter Summary ---
:1960 Author Organization [facility] Address [address] [place] [address] Care Team Providers Name Role Phone Unavailable Primary Care Provider Unavailable Encounter Details Date Type Department Care Team Description 02/07/2019 Orders Only Division of Nephrology Steve Martínez Kidney Disease Stage 5 Glomerular Filtration Rate Less Than 15 (HCC) (Primary Dx); and Hypertension in [place] Garcia D.O. Complication Dialysis Fistula Subsequent [place], [place] [address] [facility] [address] [place] [phone] [phone] Social History Tobacco Use Types Packs/Day Years [...] How often do you attend amish or catholic 1 to 4 times per [...] Nicholas APRN C.N.P., D.N.P., M.S.N. [address] [place] [address] 55 [phone] (Wo rk) 07/31/2022 Lab Laboratory Medicine Tony Rubalcava M. B., Sydnie, MDebra [address] [place] [address] 55 [phone] (Wo rk) 07/31/2022 Lab Laboratory Medicine Tony Rubalcava M. B., Sydnie, MDebra [address] [place] [address] 55 [phone] (Wo rk) 07/31/2022 Office Visit Transplant Tony Rubalcava M.B., Sydnie, MDebra [address] [place] [address] 55 [phone] (Wo rk) 07/31/2022 Appointment Radiology Tony Rubalcava M.B., Sydnie, MDebra [address] [place] [address] 55 [phone] (Wo rk) 08/01/2022 Office Visit Transplant Tony Rubalcava M.B., Mukund Otoole [address] [place] [address] 55 [phone] (Wo rk) 08/01/2022 Clinical Support Transplant Tony Rubalcava M.B., Mukund Otoole [address] [place] [address] 55 [phone] (Wo rk) documented as of this encounter Visit Diagnoses Diagnosis Chronic Kidney Disease Stage 5 Glomerula r Filtration Rate Less Than 15 (HCC) - Primary Complication Dialysis Fistula Subsequent documented in this encounter Additional Health Concerns Assessment Noted Time PHQ-9 Depression Total Score: 4 01/30/2019 12:13 PM CD T documented as of this encounter
--- OUTSIDE RECORDS SUMMARY | 2022-05-25 13:25 | XMS_ITS | Encounter Summary ---
:1960 Author Organization [facility] Address [address] [place] [address] Care Team Providers Name Role Phone Unavailable Primary Care Provider Unavailable Reason for Visit Transplant (Routine) - Closed Specialty Diagnoses / Procedures Referred By Contact Refer red To Contact Transplant Surgery / Diagnoses Pretransplant Recipient Evaluation Exam Chronic Kidney Disease Stage 5 GFR Less Than 15 Dialysis Dependent (HCC) Juvenal Plummer, [facility] Transplant M.D. 200 [place] [address] Referral ID Status Reason Start Date Expiration Date Visits Requ ested Visits Authorized [id number] Closed 01/01/2019 01/01/2020 1 1 Encounter Details Date Type Department Care Team Description 02/06/2019 Comprehensive Visit Ata Henderson, Hyperlipidemia (Primary Dx); [place] for [facility], Pretransplant R ecipient Evaluation Exam; Transplantation and M.D. Chronic Kidney Disease Stage 5 GFR Less Than 15 Dialysis Dependent (HCC); [facility] [address] [place] [address] Hypertension And Chronic Kidney Disease Stage 1 To 4; in [place], [place] Transplant Re nal (HCC) [place] [address] [place] [address] [place], [place] (Work) [phone] Social History Tobacco Use Types Packs/Day Years [...] How often do you attend rastafarian or uatsdin 1 to 4 times per [...] Sign Reading Time Taken Comments Blood Pressure 98/65 02/06/2019 9:59 AM CDT Pulse 70 02/06/2019 9:59 AM CDT Temperature 36.2 ??C (97.2 ??F) 02/06/2019 9:59 AM CDT Respiratory Rate - - Oxygen Saturation - - Inhaled Oxygen Concentration - - Weight 98 kg (216 lb 0.8 oz) 02/06/2019 9:59 AM CDT Height 163.3 cm (5' 4.29) 02/06/2019 9:59 AM CDT Body Mass Index 36.75 02/06/2019 9:59 AM CDT documented in this encounter Consult Notes Oscar Miguel M.D. - 02/06/2019 10:00 AM CDT REFERRAL SOURCE Juvenal Plummer M.D. [address] [place] [address] CHIEF COMPLAINT / REASON FOR VISIT Reassessment of cardiac status while awaiting kidney transplantation. HISTORY OF PRESENT ILLNESS Ms. Wray is a 58-year-old woman with previous kidney transplant now contemplating read transplantation. Unremarkable cardiac history and Dr. Godinez detailed consultation August 2017 is reviewed. Comorbidities include tobacco use, hypertension and mild hyperlipidemia. She reports no change in ov erall status in the last year. She maintains a reasonable level of activity and tolerates dialysis quite well. She does not report any worrisome symptoms of dyspnea, chest discomfort, tachy palpitations, syncope or edema. She continues to smoke 5-8 cigarettes daily. It is a struggle for her to quit. Otherwise reports adequate blood pressure readings and tolerating lipid lowering therapy without difficulty. The following portions of the patient's history were reviewed and updated as appropriate: allergies,current medications, family history, medical history, social history, surgical history, psychiatric history, substance abuse history, problem list, labs, diagnostics tests.. I also reviewed pertinent clinical notes in the electronic health record. REVIEW OF SYSTEMS A comprehensive review of systems was completed; pertinent abnormalities are included in the Historyof Present Illness. MEDICATIONS Current Medications: ??? B complex 73-maamv-U-biot-zinc (DIALYVITE) 1-365-540-50 cv-ml-ukg-mg tablet, Take 1 tablet by mouth daily. ??? ciprofloxacin (CIPRO) 250 mg tablet, Take [...] ) ??? mycophenolate (CELLCEPT) 250 mg capsule, TAKE 2 CAPSULES BY MOUTH TWICE DAILY ??? nebivolol (BYSTOLIC) 10 mg tablet, Take [...] daily as needed(spasm pain assoc with stent). VITALS BP98/65 HR 70 PHYSICAL EXAMINATION General: She looks well in no acute distress Psychiatric: Oriented to person, place, and time. ENT: Clear mucosa, no adenopathy, anicteric sclera Vessels: Normal JVP, normal carotid upstroke without bruits Heart: Regular rhythm with a normal S1 and S2 and no appreciable murmur or gallop. Quiet precordium Lungs: Clear Abdomen: Soft nondistended without visceromegaly or ascites Extremities: Warm well-perfused no edema Skin: No stasis dermatitis or ulceration of the lower extremities. DIAGNOSTIC REVIEW All labs and diagnostic studies were reviewed. EKG without interim change premature atrial complexesotherwise normal, negative dobutamine stress echocardiogram without significant valvular pathology. Satisfactory lipids and biomarkers. Lipid profile much improved from August 2017. ASSESSMENT / PLAN #1 Pretransplant Recipient Evaluation Exam #2 Chronic Kidney Disease Stage 5 GFR Less Than 15 Dialysis Dependent (HCC) #3 Hyperlipidemia #4 Hypertension And Chronic Kidney Disease Stage 1 To 4 #5 Transplant Renal (HCC) Overall she remains clinically stable. Her interim cardiac studies including dobutamine stress echocardiogram and biomarkers are satisfactory. She remains a satisfactory candidate to proceed from the cardiovascular standpoint and will be happy to see her back on a yearly basis as needed. I have encouraged her to discontinue tobacco use altogether. Otherwise from the risk factor modifications standpoint she is doing very well. Oscar Miguel M.D. 02/06/2019 documented in this encounter Plan of Treatment Upcoming Encounters Date Type Specialty Care Team Description 06/01/2022 Telemedicine Pharmacy An Nicholas APRN, C.NDoc, Michelle.N.P., M.S.N. [address] [place] [address] [phone] (Wo rk) 07/31/2022 Lab Laboratory Medicine Tony Rubalcava M. B., ChBurke, MDebra [address] [place] [address] [phone] (Wo rk) 07/31/2022 Lab Laboratory Medicine Tony Rubalcava M. B., Sydnie, Mukund [address] [place] [address] [phone] (Wo rk) 07/31/2022 Office Visit Transplant Tony Rubalcava M.B., Sydnie, MDebra [address] [place] [address] [phone] (Wo rk) 07/31/2022 Appointment Radiology Tony Rubalcava M.B., ChBurke, MDebra [address] [place] [address] 55 [phone] (Wo rk) 08/01/2022 Office Visit Transplant Tony Rubalcava M.B., ChBurke, MDebra [address] [place] [address] 55 [phone] (Wo rk) 08/01/2022 Clinical Support Transplant Tony Rubalcava M.B., Sydnie, MDebra [address] [place] [address] 55 [phone] (Wo rk) documented as of this encounter Visit Diagnoses Diagnosis Hyperlipidemia - Primary Pretransplant Recipient Evaluation Exam Chronic Kidney Disease Stage 5 GFR Less Than 15 Dialysis Dependent (HCC) Hypertension And Chronic Kidney Disease Stage 1 To 4 Transplant Renal (HCC) documented in this encounter Additional Health Concerns Assessment Noted Time PHQ-9 Depression Total Score: 4 01/30/2019 12:13 PM CD T documented as of this encounter
--- OUTSIDE RECORDS SUMMARY | 2022-05-25 13:25 | XMS_ITS | Encounter Summary ---
:1960 Author Organization [facility] Address [address] [place] [address] Care Team Providers Name Role Phone Unavailable Primary Care Provider Unavailable Encounter Details Date Type Department Care Team Description 02/10/2019 Hospital Encounter Department of Josr Martínez Jr., D.ODavi [address] [place] [address] [phone] Complication Dialysis Fistula Subsequent ; Radiology in An Nichols M.D. [address] [place] [phone] Chronic Kidney Disease Stage 5 Glomerula r Filtration Rate Less Than 15 (HCC) Juancho Hernandez Evelyn F, M.D. [address] [place] [phone] [place] Sarmad Naik, C.S.T. [address] [place] [phone] [id number] [facility] Mica Ochoa, R.T.(R) [place], [place] Barbara Sepulveda [address] [place] [phone] Social History Tobacco Use Types Packs/Day [...] How often do you attend cheondoism or taoism 1 to 4 times per [...] Sign Reading Time Taken Comments Blood Pressure 176/87 02/10/2019 3:30 PM CDT Pulse 68 02/10/2019 3:30 PM CDT Temperature - - Respiratory Rate 13 02/10/2019 3:15 PM CDT Oxygen Saturation 95% 02/10/2019 3:30 PM CDT Inhaled Oxygen Concentration - - Weight - - Height - - Body Mass Index - - documented in this encounter Medications at Time of Discharge Medication Sig Dispensed Refills Start Date End Date hydrocortisone Apply 1 application 0 09/18/2017 (for_HYTONE) 2.5 % topically daily as cream needed (Eczema). B complex Take 1 tablet by 0 06/13/2017 05/31/20 19 [id number]-[id number]-D-biot-zinc mouth daily. (DIALYVITE) [phone] re-xv-hzl-mg tablet ciprofloxacin (CIPRO) Take 1 tablet by [...] with stent). documented as of this encounter Procedure Notes Twin Dawkins M.D. - 02/10/2019 3:23 PM CDT PATIENT DISPOSITION Return to Outpatient Unit for recovery. Discharge patient when discharge criteria met. POST-PROCEDURE DIAGNOSIS Thrombosed left brachiobasilic fistula PROCEDURE PERFORMED AND DESCRIPTION Declot of the thrombosed left brachiobasilic fistula. May use fistula. 3 pursestring sutures left in place to be removed at dialysis. PROCEDURE DETAILS See Radiology Report SPECIMENS REMOVED None FINDINGS Fistula widely patent after declot. PRIMARY PROCEDURALIST Dr. An Nichols ASSISTANTS Dr. Twin Dawkins COMPLICATIONS None. DRAINS None. IMPLANTS None. ANESTHESIA Moderate Sedation. FLUIDS See MAR ESTIMATED BLOOD LOSS <5ml CURRENT MEDICATIONS No Medication Changes FOLLOW-UP LETTER None. MAY RETURN TO WORK Not applicable PATIENT INSTRUCTIONS Follow up fistulogram in one month. documented in this encounter Plan of Treatment Upcoming Encounters Date Type Specialty Care Team Description 06/01/2022 Telemedicine Pharmacy An Nicholas APRN, C.N.P., D.N.P., M.S.N. [address] [place] [address] [phone] (Nicolas wen) 07/31/2022 Lab Laboratory Medicine Tony Rubalcava M. B., ChBurke, MElvia. [address] [place] [address] [phone] (Nicolas wen) 07/31/2022 Lab Laboratory Medicine Tony Rubalcava M. B., ChBurke, MElvia. [address] [place] [address] [phone] (Nicolas wen) 07/31/2022 Office Visit Transplant Tony Rubalcava M.B., Sydnie, MElvia. [address] [place] [address] [phone] (Nicolas wen) 07/31/2022 Appointment Radiology Tony Rubalcava M.B., Mukund Otoole [address] [place], [place] [phone] (Wo rk) 08/01/2022 Office Visit Transplant Tony Rubalcava M.B., Mukund Otoole [address] [place], [place] [phone] (Wo behzad) 08/01/2022 Clinical Support Transplant Toyn Rubalcava M.B., Mukund Otoole [address] [place], [place] [phone] (Nicolas wen) documented as of this encounter Procedures Procedure Name Priority Date/Time Associated Comments Diagnosis IR DIALYSIS RAD - Routine 02/10/2019 3:21 Complication Results for this FISTULA DECLOT (most inpatients PM CDT Dialysis Fistula proce dure are in LEFT and all Subsequent the results outpatients) Chronic Kidney section. Disease Stage 5 Glomerular Filtration Rate Less Than 15 (HCC) ADULT OXYGEN Routine 02/10/2019 1:07 THERAPY PM CDT documented in this encounter Results IR Dialysis Fistula Declot Left (02/10/2019 3:21 PM CDT) Anatomical Region Laterality Modality Body, Vascular Interventional RST LOS, Vascular Left X-Ray Angiography Interventional ARZ LOS, Vascular Interventional FLA LOS Specimen (Source) Anatomical Collection Method Collection Time Re ceived Time Location / / Volume Laterality 02/10/2019 4:15 PM CDT Impressions 02/10/2019 4:45 PM CDT Declot of left brachiobasilic fistula. Resolution of critical stenosis at the central end of the previ ously placed venous anastomotic stent. Patient may use the fistula. Pursestring sutures should be removed tomorrow. Patient will need to return in one month for a fistulogram. EP Narrative 02/10/2019 4:45 PM CDT REVISED REPORT: EXAM: IR DIALYSIS FISTULA DECLOT LEFT CLINICAL HISTORY: Thrombosed left brachi obasilic fistula. TECHNIQUE: With patient in a supine posi tion, the left upper extremity was prepped and draped in the normal sterile fashion. Ultrasound was utilized to demonstrate occlusion of the left brachi obasilic fistula. Under direct ultrasound guidance and using 1% lidocai ne for local anesthesia, micropuncture needle was advanced into the thrombosed fistula near the arterial anastomosis but pointed toward the venous outflow. A copy was saved to the permanent record. Through this, a Glidewire was advanced t o the left axillary vein. An angled catheter was advanced to the left axilla ry vein and a central venogram was performed which demonstrates patency of the central veins but clot within the left axillary vein and peripheral to thi s to the level of the arterial anastomosis. Venous anastomotic stent is noted. A 7 Australian sheath was advanced over this wire. A secondary access was g ained into the fistula more centrally but pointed toward the arterial inflow a nd a 7 Australian sheath was placed. An 8 mm balloon was used to macerate the clot fr om the venous side sheath and 4 mg of tPA in 4 mL was instilled into the fistu la with the arterial inflow obstructed. Using push and pull maneuver with an 8 m m balloon for the venous side and 7 mm balloon for the arterial side, the clot was cleared from the fistula. Nonpulsatile flow was restored after pul ling the arterial plug. However, a large amount of clot remained in the periphera l aspect of the fistula where the fistula was dilated. Therefore, the adam th was upsized to a 10 Australian sheath and a 9 Australian MPA catheter was used to aspi rate more organized clot from the fistula. A fistulogram was repeated and a large majority of the clot from the peripheral aspect of the fistula was casper ared. There was a severe stenosis of the central end of the previously placed clare nt which was treated with a 10 mm balloon. Completion fistulogram was perf ormed which showed good outflow from the fistula and the thrill was nonpulsatile. The sheaths were removed and pursestring suture placed at each of the sites. Upon tying the pursestring suture of the more peripheral sheath sit e, the fistula became quite pulsatile. Therefore, another access was gained int o the fistula pointed toward the venous outflow and repeat clearing of the throm bus at the venous stent was performed with repeat angioplasty of the venous st ent. This cleared the clot and again the fistula was nonpulsatile. The third adam th site was closed with a pursestring suture. All of these pursestring sutures were left in place to be removed at dialysis tomorrow. Patient was systemica lly anticoagulated with heparin during the procedure. No complications. PREPROCEDURE: Patient seen, evaluated, h istory reviewed, [...] procedure. The total intra-procedural sedation time was: 96 m inutes. Procedure Note An Nichols M.D. - 02/17/2019Form atting of this note might be different from the original. REVISED REPORT: EXAM: IR DIALYSIS FISTULA DECLOT LEFT CLINICAL HISTORY: Thrombosed left brachi obasilic fistula. TECHNIQUE: With patient in a supine posi tion, the left upper extremity was prepped and draped in the normal sterile fashion. Ultrasound was utilized to demonstrate occlusion of the left brachi obasilic fistula. Under direct ultrasound guidance and using 1% lidocai ne for local anesthesia, micropuncture needle was advanced into the thrombosed fistula near the arterial anastomosis but pointed toward the venous outflow. A copy was saved to the permanent record. Through this, a Glidewire was advanced t o the left axillary vein. An angled catheter was advanced to the left axilla ry vein and a central venogram was performed which demonstrates patency of the central veins but clot within the left axillary vein and peripheral to thi s to the level of the arterial anastomosis. Venous anastomotic stent is noted. A 7 Australian sheath was advanced over this wire. A secondary access was g ained into the fistula more centrally but pointed toward the arterial inflow a nd a 7 Australian sheath was placed. An 8 mm balloon was used to macerate the clot fr om the venous side sheath and 4 mg of tPA in 4 mL was instilled into the fistu la with the arterial inflow obstructed. Using push and pull maneuver with an 8 m m balloon for the venous side and 7 mm balloon for the arterial side, the clot was cleared from the fistula. Nonpulsatile flow was restored after pul ling the arterial plug. However, a large amount of clot remained in the periphera l aspect of the fistula where the fistula was dilated. Therefore, the adam th was upsized to a 10 Australian sheath and a 9 Australian MPA catheter was used to aspi rate more organized clot from the fistula. A fistulogram was repeated and a large majority of the clot from the peripheral aspect of the fistula was casper ared. There was a severe stenosis of the central end of the previously placed clare nt which was treated with a 10 mm balloon. Completion fistulogram was perf ormed which showed good outflow from the fistula and the thrill was nonpulsatile. The sheaths were removed and pursestring suture placed at each of the sites. Upon tying the pursestring suture of the more peripheral sheath sit e, the fistula became quite pulsatile. Therefore, another access was gained int o the fistula pointed toward the venous outflow and repeat clearing of the throm bus at the venous stent was performed with repeat angioplasty of the venous st ent. This cleared the clot and again the fistula was nonpulsatile. The third adam th site was closed with a pursestring suture. All of these pursestring sutures were left in place to be removed at dialysis tomorrow. Patient was systemica lly anticoagulated with heparin during the procedure. No complications. PREPROCEDURE: Patient seen, evaluated, h istory reviewed, [...] procedure. The total intra-procedural sedation time was: 96 m inutes. IMPRESSION: Declot of left brachiobasilic fistula. R esolution of critical stenosis at the central end of the previ ously placed venous anastomotic stent. Patient may use the fistula. Pursestring sutures should be removed tomorrow. Patient will need to return in one month for a fistulogram. EP Steve Martínez Jr., D.ODavi [facility] IR PROCEDURES documented in this encounter Visit Diagnoses Diagnosis Complication Dialysis Fistula Subsequent Chronic Kidney Disease Stage 5 Glomerula r Filtration Rate Less Than 15 (HCC) documented in this encounter Administered Medications Inactive Administered Medications - up to 3 most recent administrations Medication Order MAR Action Action Date Dose Rate Site alteplase injection (CATHFLO Given 02/10/2019 1:52 PM CDT 4 mg Left Arm ACTIVASE) Code/trauma/sedation medication, Starting on Sun02/10/19 at 1352 diphenhydrAMINE injection (BENADRYL) Given 02/10/2019 1:37 PM CDT 25 mg Code/trauma/sedation medication, Starting on Sun02/10/19 at 1337 fentaNYL injection 25 mcg (SUBLIMAZE) Given 02/10/2019 3:03 PM CDT 25 mcg 25 mcg, intravenous, Every 2 min PRN, sedation, or pain before and during sedation procedure, Starting on Sun02/10/19 at 1307, Intraprocedure (RAD), Administer over 1 minute immediately prior to the procedure. May repeat every 2 minutes to a maximum of 200 mcg, until pain score of 3 or less, or until the patient meets the pain comfort goal. Do not give if respiratory rate is less than 8 breaths/minute Given 02/10/2019 2:31 PM CDT 25 mcg Given 02/10/2019 1:52 PM CDT 25 mcg flumazenil injection 0.2 mg (ROMAZICON) 0.2 mg, intravenous, Once as needed, rev ersal, Starting on Sun02/10/19 at 1307, For 1 dose, Intraprocedure (RAD), Administer once if patient has a RASS score of -4, -5 and has a respiratory rate less than 8 breaths/minute. heparin (porcine) 1,000 unit/mL injectio n Given 02/10/2019 2:08 PM 4,000 Units Code/trauma/sedation medication, Starting CDT on Sun02/10/19 at 1408 iohexol 300 mg iodine/mL solution (OMNIP AQUE) Given 02/10/2019 2:57 PM CDT 100 mL Code/trauma/sedation medication, Starting on Sun02/10/19 at 1457 lidocaine-sodium bicarbonate 1%-8.4% inj ection Given 02/10/2019 2:58 PM CDT 8 mL infiltration, Code/trauma/sedation medication, Starting on Sun02/10/19 at 1458 midazolam (PF) injection 0.5 mg (VERSED) 0.5 mg, intravenous, Once as needed, sed ation, Starting on Sun02/10/19 at 1307, For 1 dose, Intraprocedure (RAD) midazolam (PF) injection 0.5 mg (VERSED) Given 02/10/2019 2:45 PM CDT 0.5 mg 0.5 mg, intravenous, Every 2 min PRN, sedation, Starting on Sun02/10/19 at 1307, Intraprocedure (RAD), If RASS greater than -3, give additional dose(s) of 0.5 mg IV every 2 minutes for a maximum of 5 mg. Do not give if respiratory rate is less than 8 breaths/minute. Given 02/10/2019 1:58 PM CDT 0.5 mg Given 02/10/2019 1:36 PM CDT 0.5 mg NaCl 0.9% infusion New Bag 02/10/2019 1:08 PM CDT 20 mL/hr 20 mL/hr 20 mL/hr, intravenous, Once as needed, to keep vein open, Starting on Sun02/10/19 at 1307, For 1 dose, Intraprocedure (RAD) naloxone injection 0.2 mg (NARCAN) 0.2 mg, intravenous, Once as needed, respiratory depre ssion, Starting on Sun02/10/19 at 1307, For 1 dose, Intraproced ure (RAD), Administer once if patient has a RASS score of -4, -5 and has a respiratory rate less t simpson 8 breaths/minute. sodium chloride 0.9 % injection 10 mL 10 mL, intravenous, As needed, line care, Starting on Sun02/10/19 at 1307, Intraprocedure (RAD), Peripheral Intrave nous Catheter and Rapid Infusion Catheter, prior to blood sampling, post blood transfusion or pos t blood sampling sodium chloride 0.9 % injection 3 mL 3 mL, intravenous, As needed, line care, Starting on M on 02/10/19 at 1307, Intraprocedure (RAD), Prior to and following infusion and between multiple consecutive infusions: sodium chloride 0.9 % injection sodium chloride 0.9 % injection 3 mL 3 mL, intravenous, Every 12 hours scheduled, First dos e on Sun02/10/19 at 2100, Intraprocedure (RAD), Peripheral Intrave nous Catheter and Rapid Infusion Catheter, when no infusion to maintain patency documented in this encounter Active and Recently Administered Medications Times are shown in CDT. Scheduled Medication Order 02/08/2019 02/09/2019 02/10/2019 sodium chloride 0.9 % injection 3 mL 3 mL, intravenous, Every 12 hours schedu led, First dose on Sun02/10/19 at 2100, Intraprocedure (RAD), Peripheral Intravenous Catheter and Rapid Infusion Catheter, when no infusion to maintain patency PRN Medication Order 02/08/2019 02/09/2019 02/10/2019 alteplase injection (CATHFLO ACTIVASE) (COMPLETED) 1352 (Given - Provider: An Nichols M.D.) Code/trauma/sedation medication, Starting on Sun02/10/19 at 1352 diphenhydrAMINE injection (BENADRYL) (COMPLETED) 1337 (Given - Provider: Noelle Guadalupe R.N.) Code/trauma/sedation medication, Starting on Sun02/10/19 at 1337 fentaNYL injection 25 mcg (SUBLIMAZE) 1321 (Given - Provider: Noelle Guadalupe R.N.)1336 (Given - Provider: Noelle Guadalupe R.N.)1352 (Given - Provider: Noelle Guadalupe R.N.)1431 (Given - Provider: Noelle Guadalupe R.N.)1503 (Given - Provider: Noelle Guadalupe R.N.) 25 mcg, intravenous, Every 2 min PRN, se dation, or pain before and during sedation procedure, Starting on Sun02/10/19 at 1307, Intraprocedure (RAD), Administer over 1 minute immediately [...] Once as needed, rev ersal, Starting on Sun02/10/19 at 1307, For 1 dose, Intraprocedure (RAD), Administer once if patient has a RASS score of -4, -5 and has a respiratory rate less than 8 breaths/minute. heparin (porcine) 1,000 unit/mL injection (COMPLETED) 1408 (Given - Provider: Noelle Guadalupe R.N.) Code/trauma/sedation medication, Starting on Sun02/10/19 at 1408 iohexol 300 mg iodine/mL solution (OMNIPAQUE) (COMPLETED) 1457 (Given - Provider: An Nichols M.D.) Code/trauma/sedation medication, Starting on Sun02/10/19 at 1457 lidocaine-sodium bicarbonate 1%-8.4% injection (COMPLETED) 1458 (Given - Provider: An Nichols M.D.) infiltration, Code/trauma/sedation medication, Starting on M on 02/10/19 at 1458 midazolam (PF) injection 0.5 mg (VERSED) 0.5 mg, intravenous, Once as needed, sed ation, Starting on Sun02/10/19 at 1307, For 1 dose, Intraprocedure (RAD) midazolam (PF) injection 0.5 mg (VERSED) 1321 (Given - Provider: Noelle Guadalupe R.N.)1336 (Given - Provider: Noelle Guadalupe R.N.)1358 (Given - Provider: Noelle Guadalupe R.N.)1445 (Given - Provider: Noelle Guadalupe RRalf) 0.5 mg, intravenous, Every 2 min PRN, se dation, Starting on Sun02/10/19 at 1307, Intraprocedure (RAD), If RASS greater than -3, give additional dose(s) of 0.5 mg IV every 2 minutes for a maximum of 5 mg . Do not give if respiratory rate is less than 8 breaths/minute. NaCl 0.9% infusion (COMPLETED) 1 308 (New Bag - Provider: Noelle Guadalupe R.N.)1531 (Stopped - Provider: Elvia Collins R.N.) 20 mL/hr, intravenous, Once as needed, t o keep vein open, Starting on Sun02/10/19 at 1307, For 1 dose, Intraprocedure (RAD) naloxone injection 0.2 mg (NARCAN) 0.2 mg, intravenous, Once as needed, res piratory depression, Starting on Sun02/10/19 at 1307, For 1 dose, Intraprocedure (RAD), Administer once if patient has a RASS score of -4, -5 and has a respiratory rate less than 8 breaths/minute. sodium chloride 0.9 % injection 10 mL 10 mL, intravenous, As needed, line care , Starting on Sun02/10/19 at 1307, Intraprocedure (RAD), Peripheral Intravenous Catheter and Rapid Infusion Catheter, prior to blood sampling, post blood transfusion or post blood sampling sodium chloride 0.9 % injection 3 mL 3 mL, intravenous, As needed, line care, Starting on Sun02/10/19 at 1307, Intraprocedure (RAD), Prior to and following infusion and between multiple consecutive infusions: sodium chloride 0.9 % injection documented in this encounter Additional Health Concerns Assessment Noted Time PHQ-9 Depression Total Score: 4 01/30/2019 12:13 PM CD T documented as of this encounter
--- OUTSIDE RECORDS SUMMARY | 2022-05-25 13:25 | XMS_ITS | Encounter Summary ---
:1960 Author Organization [facility] Address [address] [place] [address] Care Team Providers Name Role Phone Unavailable Primary Care Provider Unavailable Encounter Details Date Type Department Care Team Description 02/10/2019 Documentation Division of Nephrology and Clara Clarke R.N. Hypertension in [place], [facility] [address] [place], [place] [address] [facility] [id number] [place] [phone] Social History Tobacco Use Types Packs/Day Years [...] How often do you attend amish or adventist 1 to 4 times per [...] as of this encounter Progress Notes Clara Clarke, Andi. - 02/10/2019 7:[address] 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 LOCATION OF ACCESS:??Left Brachial??Basilic?? PERTINENT PROCEDURAL HISTORY: Patient referred by Dr. Martínez for declot, fistulogram and angioplasty as indicated. This morning when she presented to dialysis, her fistula was found to be clotted. Nothrill or bruit present and 1 needle attempted with no blood return. She was recently declotted on 12/23/[address] Nichols. She has had 5 fistulograms on this fistula and 2 declots. She??dialyzes at the [facility]??clinic on a Sunday, Sunday and Sunday schedule. ?? DIABETES: ?No medications ?? ANTICOAGULATION: ?No medications ?? LABORATORY RESULTS: ?Current Labs??in Epic on 01/28/19. ALLERGIES/ADVERSE REACTIONS Allergies Allergen Reactions ??? Epoetin Rolando GI intolerance ERYTHROPOIETIN- vomiting ??? Latex Other (see comments) Eczema IMPRESSION/REPORT/PLAN SPECIFIC PATIENT INSTRUCTIONS: Patient instructed to report to the [facility], Howard Iglesias-Michelle on 02/10/19 at 11:00am. You must have a follow up manager to drive you home due to the [...] to three fourths of the day in [place] for this procedure. There is generally some waiting involved prior to the procedure. Post Access Instructions: On 02/11/19, she is to dialyze at [facility]. Appointment scheduled via Sary Goodrich at Interventional Radiology. documented in this encounter Plan of Treatment Upcoming Encounters Date Type Specialty Care Team Description 06/01/2022 Telemedicine Pharmacy An Nicholas APRN, C.N.P., D.N.P., M.S.N. [address] [place] [address] [phone] (Wo rk) 07/31/2022 Lab Laboratory Medicine Tony Rubalcava M. B., Ch.B., M.Whitney [address] [place] [address] [phone] (Wo rk) 07/31/2022 Lab Laboratory Medicine Tony Rubalcava M. B., Ch.Maurice, MDebra [address] [place] [address] [phone] (Wo rk) 07/31/2022 Office Visit Transplant Tony Rubalcava M.B., Sydnie, Mukund [address] [place] [address] [phone] (Wo rk) 07/31/2022 Appointment Radiology Tony Rubalcava M.B., Sydnie, Mukund [address] [place] [address] [phone] (Wo rk) 08/01/2022 Office Visit Transplant Tony Rubalcava M.B., Sydnie, Mukund [address] [place] [address] [phone] (Wo rk) 08/01/2022 Clinical Support Transplant Tony Rubalcava M.B., Sydnie, Mukund [address] [place] [address] [phone] (Wo rk) documented as of this encounter Visit Diagnoses Not on filedocumented in this encounter Additional Health Concerns Assessment Noted Time PHQ-9 Depression Total Score: 4 01/30/2019 12:13 PM CD T documented as of this encounter
--- OUTSIDE RECORDS SUMMARY | 2022-05-25 13:25 | XMS_ITS | Encounter Summary ---
:1960 Author Organization [facility] Address [address] [place] [address] Care Team Providers Name Role Phone Unavailable Primary Care Provider Unavailable Encounter Details Date Type Department Care Team Description 02/11/2019 Hospital Encounter Department of Josr Martínez Jr., D.ODvai 200 [place] [phone] Complication Dialysis Fistula Subsequent ; Radiology in Shlomo Monreal M.D. 200 [place] [phone] Chronic Kidney Disease Stage 5 Glomerula r Filtration Rate Less Than 15 (HCC) Juancho Hernandez Evelyn F, M.D. 200 [place] [phone] [address] [place] [address] Social History Tobacco Use Types [...] times do you talk on Twice a asher karimi 12/23/2021 the phone with family, friends, or neighbors? How often do you get together with friends or Patient refuse d 12/23/2021 relatives? How often do you attend adventism or denominational 1 to 4 times per [...] Sign Reading Time Taken Comments Blood Pressure 119/77 02/11/2019 2:05 PM CDT Pulse - - Temperature - - Respiratory Rate 15 02/11/2019 2:05 PM CDT Oxygen Saturation 98% 02/11/2019 2:05 PM CDT Inhaled Oxygen Concentration - - Weight - - Height - - Body Mass Index - - documented in this encounter Medications at Time of Discharge Medication Sig Dispensed Refills Start Date End Date hydrocortisone Apply 1 application 0 09/18/2017 (for_HYTONE) 2.5 % topically daily as cream needed (Eczema). B complex Take 1 tablet by 0 06/13/2017 05/31/20 19 88-[id number]-[id number]-biot-zinc mouth daily. (DIALYVITE) 3-170-166-50 qv-ka-lty-mg tablet ciprofloxacin (CIPRO) Take 1 tablet by [...] encounter Procedure Notes Twin Dawkins M.D. - 02/11/2019 2:14 PM CDT PATIENT DISPOSITION Return to Outpatient Unit for recovery. Discharge patient when discharge criteria met. POST-PROCEDURE DIAGNOSIS Need for tunneled dialysis catheter PROCEDURE PERFORMED AND DESCRIPTION Placement of a right IJ vein tunneled dialysis catheter with tip near the SVC/RA junction. Ready for use. PROCEDURE DETAILS See Radiology Report SPECIMENS REMOVED None FINDINGS As expected PRIMARY PROCEDURALIST Dr. Shlomo Monreal ASSISTANTS Dr. Twin Dawkins COMPLICATIONS None. DRAINS [...] Nicholas APRN, C.N.P., D.N.P., M.S.N. [address] [place] [address] [phone] (Nicolas wen) 07/31/2022 Lab Laboratory Medicine Tony Rubalcava M. B., Sydnie, Mukund [address] [place] [address] [phone] (Nicolas ewn) 07/31/2022 Lab Laboratory Medicine Tony Rubalcava M. B., Sydnie, Mukund [address] [place] [address] [phone] (Nicolas wen) 07/31/2022 Office Visit Transplant Tony Rubalcava M.B., Sydnie, MDebra [address] [place] [address] [phone] (Nicolas wen) 07/31/2022 Appointment Radiology Tony Rubalcava M.B., Sydnie, MDebra [address] [place] [address] [phone] (Nicolas wen) 08/01/2022 Office Visit Transplant Tony Rubalcava M.B., Sydnie, MDebra [address] [place] [address] [phone] (Nicolas wen) 08/01/2022 Clinical Support Transplant RufinoeliTony M.B., Mukund Otoole [address] [address] [phone] (Wo rk) documented as of this encounter Procedures Procedure Name Priority Date/Time Associated Comments Diagnosis IR DIALYSIS / RAD - Routine 02/11/2019 2:13 Complication Results fo r this HIGH FLOW [...] atheter placement. Catheter ready for use. EP Steve Martínez Jr. D.ODavi [facility] IR PROCEDURES documented in this encounter Visit Diagnoses Diagnosis Complication Dialysis Fistula Subsequent Chronic Kidney Disease Stage 5 Glomerula r Filtration Rate Less Than 15 (HCC) documented in this encounter Administered Medications Inactive Administered Medications - up to 3 most recent administrations Medication Order MAR Action Action Date Dose Rate Site ceFAZolin injection 2,000 mg Given 02/11/2019 12:51 PM CDT 2,000 mg (ANCEF) 2,000 mg (rounded from 2,450 mg = 25 mg/kg ? 98 kg), intravenous, Once, On Sun02/11/19 at 1245, For 1 dose, Intraprocedure (RAD), Preoperatively within one hour of incision. Adminster IV push over 3 minutes. Add 5 mL NS to 1 gram vial for a final concentration of 200 mg/mL., Indications: Prophylaxis, surgical fentaNYL injection 25 mcg (SUBLIMAZE) Given 02/11/2019 1:57 PM CDT 25 mcg 25 mcg, intravenous, Every 2 min PRN, sedation, or pain before and during sedation procedure, Starting on Sun02/11/19 at 1237, Intraprocedure (RAD), Administer over 1 minute immediately prior to the procedure. May repeat every 2 minutes to a maximum of 200 mcg, until pain score of 3 or less, or until the patient meets the pain comfort goal. Do not give if respiratory rate is less than 8 breaths/minute Given 02/11/2019 1:54 PM CDT 25 mcg Given 02/11/2019 1:47 PM CDT 25 mcg flumazenil injection 0.2 mg (ROMAZICON) 0.2 mg, intravenous, Once as needed, rev ersal, Starting on Sun02/11/19 at 1237, For 1 dose, Intraprocedure (RAD), Administer once if patient has a RASS score of -4, -5 and has a respiratory rate less than 8 breaths/minute. midazolam (PF) injection 0.5 mg (VERSED) Given 02/11/2019 1:43 PM CDT 0.5 mg 0.5 mg, intravenous, Once as needed, sedation, Starting on e 02/11/19 at 1237, For 1 dose, Intraprocedure (RAD) midazolam (PF) injection 0.5 mg (VERSED) Given 02/11/2019 1:57 PM CDT 0.5 mg 0.5 mg, intravenous, Every 2 min PRN, sedation, Starting on Sun02/11/19 at 1237, Intraprocedure (RAD), If RASS greater than -3, give additional dose(s) of 0.5 mg IV every 2 minutes for a maximum of 5 mg. Do not give if respiratory rate is less than 8 breaths/minute. Given 02/11/2019 1:54 PM CDT 0.5 mg Given 02/11/2019 1:48 PM CDT 0.5 mg NaCl 0.9% infusion New Bag 02/11/2019 12:49 PM CDT 20 mL/hr 20 mL/hr 20 mL/hr, intravenous, Once as needed, to keep vein open, Starting on Sun02/11/19 at 1237, For 1 dose, Intraprocedure (RAD) naloxone injection 0.2 mg (NARCAN) 0.2 mg, intravenous, Once as needed, respiratory depre ssion, Starting on Sun02/11/19 at 1237, For 1 dose, Intraproced ure (RAD), Administer once if patient has a RASS score of -4, -5 and has a respiratory rate less t simpson 8 breaths/minute. sodium chloride 0.9 % injection 10 mL 10 mL, intravenous, As needed, line care, Starting on Sun02/11/19 at 1237, Preprocedure (RAD), Peripheral Intraveno us Catheter and Rapid Infusion Catheter, prior to blood sampling, post blood transfusion or pos t blood sampling sodium chloride 0.9 % injection 3 mL 3 mL, intravenous, As needed, line care, Starting on T 02/11/19 at 1237, Preprocedure (RAD), Prior to and following infusion an d between multiple consecutive infusions: sodium chloride 0.9 % injection sodium chloride 0.9 % injection 3 mL 3 mL, intravenous, Every 12 hours scheduled, First dos e on Sun02/11/19 at 2100, Preprocedure (RAD), Peripheral Intraveno us Catheter and Rapid Infusion Catheter, when no infusion to maintain patency sodium citrate injection Given 02/11/2019 2:07 PM CDT 6 mL Code/trauma/sedation medication, Starting on Sun02/11/19 at 1407 documented in this encounter Active and Recently Administered Medications Times are shown in CDT. Scheduled Medication Order 02/09/2019 02/10/2019 02/11/2019 ceFAZolin injection 2,000 mg (ANCEF) (COMPLETED) 1251 (Given - Provider: Elvia Collins R.N.) 2,000 mg (rounded from 2,450 mg = 25 mg/ kg ? 98 kg), intravenous, Once, On Sun02/11/19 at 1245, For 1 dose, Intraprocedure (RAD), Preoperatively within one hour of incision. Adminster IV push over 3 mi nutes. Add 5 mL NS to 1 gram vial for a final concentration of 200 mg/mL., Indications: Prophylaxis, surgical sodium chloride 0.9 % injection 3 mL 3 mL, intravenous, Every 12 hours schedu led, First dose on Sun02/11/19 at 2100, Preprocedure (RAD), Peripheral Intravenous Catheter and Rapid Infusion Catheter, when no infusion to maintain patency PRN Medication Order 02/09/2019 02/10/2019 02/11/2019 fentaNYL injection 25 mcg (SUBLIMAZE) 1343 (Given - Provider: Comfort Murcia R.N.)1345 (Given - Provider: Comfort Murcia R.N.)1347 (Given - Provider: Comfort Murcia R.N.)1354 (Given - Provider: Comfort Murcia R.N.)1357 (Given - Provider: Comfort Murcia R.N.) 25 mcg, intravenous, Every 2 min PRN, se dation, or pain before and during sedation procedure, Starting on Sun02/11/19 at 1237, Intraprocedure (RAD), Administer over 1 minute immediately [...] Once as needed, rev ersal, Starting on Sun02/11/19 at 1237, For 1 dose, Intraprocedure (RAD), Administer once if patient has a RASS score of -4, -5 and has a respiratory rate less than 8 breaths/minute. midazolam (PF) injection 0.5 mg (VERSED) (COMPLETED) 1343 (Given - Provider: Comfort Murcia R.N.) 0.5 mg, intravenous, Once as needed, sed ation, Starting on Sun02/11/19 at 1237, For 1 dose, Intraprocedure (RAD) midazolam (PF) injection 0.5 mg (VERSED) 1345 (Given - Provider: Comfort Murcia R.N.)1348 (Given - Provider: Comfort Murcia R.N.)1354 (Given - Provider: Comfort Murcia R.N.)1357 (Given - Provider: Comfort Murcia R.N.) 0.5 mg, intravenous, Every 2 min PRN, se dation, Starting on Sun02/11/19 at 1237, Intraprocedure (RAD), If RASS greater than -3, give additional dose(s) of 0.5 mg IV every 2 minutes for a maximum of 5 mg . Do not give if respiratory rate is less than 8 breaths/minute. NaCl 0.9% infusion (COMPLETED) 1 249 (New Bag - Provider: Elvia Collins R.N.)1409 (Stopped - Provider: Comfort Murcia R.N.) 20 mL/hr, intravenous, Once as needed, t o keep vein open, Starting on Sun02/11/19 at 1237, For 1 dose, Intraprocedure (RAD) naloxone injection 0.2 mg (NARCAN) 0.2 mg, intravenous, Once as needed, res piratory depression, Starting on Sun02/11/19 at 1237, For 1 dose, Intraprocedure (RAD), Administer once if patient has a RASS score of -4, -5 and has a respiratory rate less than 8 breaths/minute. sodium chloride 0.9 % injection 10 mL 10 mL, intravenous, As needed, line care , Starting on Sun02/11/19 at 1237, Preprocedure (RAD), Peripheral Intravenous Catheter and Rapid Infusion Catheter, prior to blood sampling, post blood transfusion or post blood sampling sodium chloride 0.9 % injection 3 mL 3 mL, intravenous, As needed, line care, Starting on Sun02/11/19 at 1237, Preprocedure (RAD), Prior to and following infusion and between multiple consecutive infusions: sodium chloride 0.9 % injection sodium citrate injection (COMPLETED) 1407 (Given - Provider: Comfort Murcia R.N. - Comment: 3ml into each port) Code/trauma/sedation medication, Starting on Sun02/11/19 at 1407 documented in this encounter Additional Health Concerns Assessment Noted Time PHQ-9 Depression Total Score: 4 01/30/2019 12:13 PM CD T documented as of this encounter
--- OUTSIDE RECORDS SUMMARY | 2022-05-25 13:25 | XMS_ITS | Encounter Summary ---
:1960 Author Organization [facility] Address [address] [place] [address] Care Team Providers Name Role Phone Unavailable Primary Care Provider Unavailable Reason for Visit Transplant (Routine) - Closed Specialty Diagnoses / Procedures Referred By Contact Refer red To Contact Transplant Surgery / Diagnoses Pretransplant Recipient Evaluation Exam Chronic Kidney Disease Stage 5 GFR Less Than 15 Dialysis Dependent (HCC) Juvenal Plummer, [facility] Ludwin.DDavi [address] [place] [id number] Referral ID Status Reason Start Date Expiration Date Visits Requ ested Visits Authorized [id number] Closed 01/01/2019 01/01/2020 1 1 Encounter Details Date Type Department Care Team Description 01/30/2019 Clinical Support Flora Gonzalez M.D. [address] [place] [address] [phone] Pretransplant Recipient Evaluation Exam; [facility] JakubSophia Smith L.I.C.SHeidi., M.S.W. [address] [place] [phone] Chronic Kidney Disease Stage 5 GFR Less Than 15 Dialysis Dependent (HCC) Transplantation and Clinical Regeneration in [facility] [address] [place] [address] [phone] Social History Tobacco Use Types Packs/Day Years [...] How often do you attend judaism or confucianist 1 to 4 times per [...] documented as of this encounter Consult Notes Sophia Sequeira L.I.C.SDaviW., M.S.W. - 01/30/2019 2:00 PM CDT Transplant Psychosocial Assessment DEMOGRAPHIC INFORMATION SUBJECTIVE Referral data: Referral Name: Kidney Transplant Referral Reason: Previous psychosocial assessment Previous assessment done on: 09/12/17 Previous assessment done by: JANICE Rojo Patient seen for: pre-transplant of kidney Persons present: Patient Patient's primary care provider: No primary care provider on file. Dialysis: [facility] 3 days per week since May 2017. Primary language: Citizen Of [place] For this interview, the patient utilized language services: No Legal decision maker: Self Citizenship Citizenship: [place] Citizen Resident Status: [place] Resident Ethnicity/Race: White Descent (select all origins that apply) Disclaimer: ?? The patient was advised regarding the various topics to be interviewed during this evaluation. The patient consented to proceed in the presence of those present for the evaluation. ?? The information provided in the assessment is based on review of the medical record as well as the face to face interview with the patient. ?? The role of the Transplant Youth Minister was explained. Where was the interview: Outpatient PAST MEDICAL AND SURGICAL HISTORY Medical and Surgical History reviewed with patient. She is currently listed for second kidney transplant. Please see medical record for complete medical information. TRANSPLANT RISK/UNDERSTANDING/MOTIVATION Compliance: Patient reports good compliance, no concerns noted at this time. Transplant Social Work assessment is that the patient has a good level of understanding. SOCIAL HISTORY Family of origin: Patient was adopted with her biological sister when she was about 4-5 years old. She lives with her adoptive parents whom she provides some assistance to; other family members are helping them as needed this week. Her biological sister, Rocío, about a year ago. Rocío lost a son to suicide and then a daughter was severely brain damaged by an accident; this led to Rocío struggling with depression and alcohol. Marital Status / Family / Household: Household information: Number of persons in household 2 Relationships of persons in household: Patient and her father. Type of housing: father's home Patient has been living with her parents and serving as her mom's caregiver. About two months ago her mom, who has Alzheimer's, moved into a fpc. She is just a five minute drive away. Patient and her father rotate going to see her most days. Patient is . She has one daughter and grandkids who are 11 and 3. Education/Employment Highest level of education: High school (9-12/GED)(GED) Literacy: Patient is literate Employment status: Unemployed Is patient currently working for income: No Work history: Patient worked at [employer] prior to her first transplant. She is now receiving disability. Patient's plan for extended time off for recovery: disability, family help Spiritual Practices/Quaker/Culture Spirituality / Quaker / Culture: Worship History No background Legal History Patient denies current legal issues SOCIAL AND PERSONAL SUPPORT SYSTEMS Psychosocial risk factors impacting the patient: Psychosocial Risk Factors: (none) Abuse, Neglect, Maltreatment, Trauma: Current: None reported. Past: None reported. Support systems: Family, good friends. ENVIRONMENTAL SUPPORTS Current living situation: with her father. Patient's home environment: House History of living at a care facility -no Anticipated modifications to the patient's home environment: None FUNCTIONAL STATUS (ADL's and IADL's) Functional Status: Independent Assistive Devices: None Level of Assistance: Independent Behavior: Oriented It is anticipated that the patient will need assistance with None CAREGIVERS Formal and Informal Resources: Patient does not receive or require any formal community resources outside of dialysis. Primary caregiver Name: Shira Fierro) Relationship to patient: friend Can they read: yes Can they write: yes Can they drive: yes Do they have a reliable vehicle: yes Does the caregiver have other responsibilities: none Health of the caregiver: good Patient's daughter is identified back up. The caregiver was educated on the following needs: to provide support in the hospital for the greater part of the day, participate in all of the teachings preparing for care after discharge, provision of 24/7 care after discharge and transportation. Caregiver plan is finalized. Transportation: car Relocation Plan: Discussed that patient will need to be in [place] with a caregiver for several weeks at time of transplant. Provided information about MTM for possible county benefits to assist. Shehas information on [facility] but has not yet toured. FINANCES/INSURANCE Primary insurance: MEDICARE A AND B Secondary insurance: [place] Additional Insurance: NA Supplemental insurance: NA Pharmacy Pharmacy benefits education: The patient or caregiver verbalized no concerns regarding post-transplant medication expenses. ADVANCE DIRECTIVES/LEGAL STATUS Advance Directives: Not Received Patient was educated about advance directives and received the Advance Health Care Planning: MakingYour Wishes Known ( [id number]) booklet. OBJECTIVE MENTAL HEALTH Mental Health History: Patient reported having a history of depression when she was first diagnosed with kidney problems and was prescribed antidepressants, but is not longer taking these and denies significant symptoms of depression. She has no history of hospitalization for mood and has no other history of mental health concerns or learning disabilities. Sister and nephew with depression history. Mood is stable at this time. Current psychological symptoms: Patient Appearance: Well-groomed, Healthy Behaviors Observed: Pleasant, Interactive Patient Level of Consciousness: Alert and oriented Status of Patient's Memory: Intact Patient Cooperation: Cooperative, Forthcoming Patient Mood: Euthymic Patient Affect: Mood-congruent, Reactive, Within a normal range Quality of Patient's Speech: Within normal limits for volume, rate and tone Descriptor of Thought Content: No abnormality Thought Process Descriptor: Logical and goal-directed Anhedonia: Denies Energy Status: Fluctuant(based on dialysis) Concentration: Stable, Intact Perception: Does not appear to respond to internal stimuli Anxiety Symptoms: No ruminative worry Depressive Symptoms: No symptoms of depressions Level of Judgement: Intact Coping abilities and strategies: Current stressors: health Coping - patient reports these personal coping mechanisms: friends, personal strength and survivor attitude/mentality Other Mental Health Assessments PHQ 9 Score: 4 ABILIO 7 Score: 5 Audit Score: Audit-C: 1 Audit: 1 Patient's ability to cope with emotional impact of transplant: Patient does appear to be able to adjust to the emotional impact of transplant. SUBSTANCE USE Patient has been smoking since age 14 and is trying to quit, though has not done so as of yet. Her alcohol use has been within acceptable limits with no history of DUI or concerns for alcohol abuse/dependence. Sister with history of alcohol abuse. She has no history of drug use. ASSESSMENT / PLAN IMPRESSION Patient remains an acceptable candidate from a psychosocial standpoint for kidney transplant. Capability of the following complex medical regimen/treatment: The patient appears capable of following a complex medical regimen/treatment. Financial: There are no concerns reported regarding the patient's ability to manage out of pocket costs for post- transplant expenses including medications, travel and lodging, and ongoing followup with assistance of resources through her [place] insurance. Caregiver plan: Caregiver plan is in place, see above for specifics. SIPAT: SIPAT Score 27 PACT score: 2 - Acceptable with some reservations INTERVENTIONS 1- Completed updated transplant Social Work assessment. 2- Psychoeducation provided on preparing for transplant. 3- aquacultural worker supervisor provided supportive counseling regarding the experience of living with a life-threatening illness and the feelings patient has surrounding transplant. PLAN 1) The patient will continue through the steps of the evaluation and be presented at a selection conference. 2) Social Work will remain available to provide further assessment and supportive intervention throughout the evaluation, transplant and recovery process. 3) Social Work will also be available to assist the patient and family with adjustment issues and community and financial resources. Face to face time (for billing purposes) 30 minutes total time, 30 minutes for counseling. Alma Donahue, AlvaroSRex 02/03/2019 documented in this encounter Plan of Treatment Upcoming Encounters Date Type Specialty Care Team Description 06/01/2022 Telemedicine Pharmacy An Nicholas APRN C.N.PDavi, D.N.P., M.S.N. [address] [place] [address] [phone] (Wo rk) 07/31/2022 Lab Laboratory Medicine Tony Rubalcava M. B., Sydnie, Mukund [address] [place] [address] [phone] (Wo rk) 07/31/2022 Lab Laboratory Medicine Tony Rubalcava M. B., Sydnie, Mukund [address] [place] [address] [phone] (Wo rk) 07/31/2022 Office Visit Transplant Tony Rubalcava M.B., Sydnie, Mukund [address] [place] [address] [phone] (Wo rk) 07/31/2022 Appointment Radiology Tony Rubalcava M.B., Sydnie, Mukund [address] [place] [address] [phone] (Wo rk) 08/01/2022 Office Visit Transplant Tony Rubalcava M.B., Sydnie, Mukund [address] [place] [address] [phone] (Wo rk) 08/01/2022 Clinical Support Transplant Tony Rubalcava M.B., Sydnie, Shashi. [address] [place] [address] [phone] (Wo rk) documented as of this encounter Visit Diagnoses Diagnosis Pretransplant Recipient Evaluation Exam Chronic Kidney Disease Stage 5 GFR Less Than 15 Dialysis Dependent (HCC) documented in this encounter Additional Health Concerns Assessment Noted Time PHQ-9 Depression Total Score: 4 01/30/2019 12:13 PM CD T documented as of this encounter
--- OUTSIDE RECORDS SUMMARY | 2022-05-25 13:25 | XMS_ITS | Encounter Summary ---
:1960 Author Organization [facility] Address [address] [place] [address] Care Team Providers Name Role Phone Unavailable Primary Care Provider Unavailable Encounter Details Date Type Department Care Team Description 02/10/2019 Orders Only Division of Nephrology Steve Martínez omplication Dialysis Fistula Subsequent (Primary Dx); and Hypertension in Fracisco Garcia D.O. Chronic Kidney Disease Stage 5 Glomerula r Filtration Rate Less Than 15 (HCC) [place], [place] [address] [facility] [address] [place] [phone] Social History Tobacco Use Types Packs/Day Years [...] often do you attend jehovah's witness or sikhism 1 to 4 times per [...] An Nicholas APRN C.N.P., D.N.P., M.S.N. [address] [place] [address] [phone] (Wo rk) 07/31/2022 Lab Laboratory Medicine Tony Rubalcava M. B., Sydnie, MDebra [address] [place] [address] [phone] (Wo rk) 07/31/2022 Lab Laboratory Medicine Tony Rubalcava M. B., Sydnie, Mukund [address] [place] [address] [phone] (Wo rk) 07/31/2022 Office Visit Transplant Tony Rubalcava M.B., Sydnie, Mukund [address] [place] [address] [phone] (Wo rk) 07/31/2022 Appointment Radiology Tony Rubalcava M.B., Sydnie, Mukund [address] [place] [address] [phone] (Wo rk) 08/01/2022 Office Visit Transplant Tony Rubalcava M.B., Mukund [place] [address] [place], [place] 55 [phone] (Wo rk) 08/01/2022 Clinical Support Transplant Tony Rubalcava M.B., Mukund [place] [address] [place], [place] [phone] (Wo rk) documented as of this encounter Results IR Dialysis Fistula Declot [...] Venous anastomotic stent is noted. A 7 Ghanaian sheath was advanced over this wire. A secondary access was g ained into the fistula more centrally but pointed toward the arterial inflow a nd a 7 Ghanaian sheath was placed. An 8 mm balloon [...] adam th was upsized to a 10 Ghanaian sheath and a 9 Ghanaian MPA catheter was used to aspi rate [...] in the presence of the assisting personnel, grant tayural pause was conducted to verify correct patient [...] Venous anastomotic stent is noted. A 7 Ghanaian sheath was advanced over this wire. A secondary access was g ained into the fistula more centrally but pointed toward the arterial inflow a nd a 7 Ghanaian sheath was placed. An 8 mm balloon [...] adam th was upsized to a 10 Ghanaian sheath and a 9 Ghanaian MPA catheter was used to aspi rate [...] in one month for a fistulogram. EP Michelle Rasheed Jr..ODavi [facility] IR PROCEDURES [...]
--- OUTSIDE RECORDS SUMMARY | 2022-05-25 13:25 | XMS_ITS | Encounter Summary ---
:1960 Author Organization [facility] Address [address] [place] [address] Care Team Providers Name Role Phone Unavailable Primary Care Provider Unavailable Encounter Details Date Type Department Care Team Description 02/07/2019 Clinical Communication Division of Nephrology Steve Martínez and Hypertension in Fracisco Garcia D.O. [place], [place] [address] [place] [address] 200 [place] [address] [phone] Social History Tobacco Use Types Packs/Day Years [...] How often do you attend moravian or yazidi 1 to 4 times per [...] Encounter - Steve Martínez Jr., D.O. - 02/07/2019 11:52 AM CDT We have been monitoring her fistula since it is too dramatic episodes of occlusion. I received an e-mail today from the [facility] team, where the patient dialyzes on a Sunday basis. Her dynamic venous pressures have been elevated for the past 2 weeks. The team is becoming quite concerned with prolonged post decannulation bleeding, and difficulties with needle insertion. They have also been concerned about a change in the bruit, and that the thrill as well as the bruit are diminished. Due to her previous sudden occlusions, and the patient's plan to leave town for vacation in [facility] it would be best if we went ahead with fistulogram next Sunday, January the . I have ordered a left upper extremity arteriovenous fistula evaluation with fistulogram and MERCHANDISING LEAD if required. documented in this encounter Plan of Treatment Upcoming Encounters Date Type Specialty Care Team Description 06/01/2022 Telemedicine Pharmacy An Nicholas APRN, C.N.P., D.N.P., M.S.N. [address] [place], [place] [phone] (Wo rk) 07/31/2022 Lab Laboratory Medicine Tony Rubalcava M. B., Sydnie, Mukund [address] [place] [address] 55 [phone] (Wo rk) 07/31/2022 Lab Laboratory Medicine Tony Rubalcava M. B., Sydnie, Mukund [address] [place] [address] 55 [phone] (Wo rk) 07/31/2022 Office Visit Transplant Tony Rubalcava M.B., Sydnie, Mukund [address] [place] [address] 55 [phone] (Wo rk) 07/31/2022 Appointment Radiology Tony Rubalcava M.B., Sydnie, Mukund [address] [place] [address] 55 [phone] (Wo rk) 08/01/2022 Office Visit Transplant Tony Rubalcava M.B., Sydnie, MDebra [address] [place] [address] [phone] (Wo rk) 08/01/2022 Clinical Support Transplant Tony Rubalcava M.B., Sydnie, MDebra [address] [place] [address] 55 [phone] (Wo rk) documented as of this encounter Visit Diagnoses Not on filedocumented in this encounter Additional Health Concerns Assessment Noted Time PHQ-9 Depression Total Score: 4 01/30/2019 12:13 PM CD T documented as of this encounter
--- OUTSIDE RECORDS SUMMARY | 2022-05-25 13:26 | XMS_ITS | Encounter Summary ---
:1960 Author Organization [facility] Address [address] [place] [address] Care Team Providers Name Role Phone Unavailable Primary Care Provider Unavailable Reason for Visit Transplant (Routine) - Closed Specialty Diagnoses / Procedures Referred By Contact Refer red To Contact Transplant Surgery / Diagnoses Pretransplant Recipient Evaluation Exam Chronic Kidney Disease Stage 5 GFR Less Than 15 Dialysis Dependent (HCC) [facility] Lud[place].[facility] [address] [place] [address] Referral ID Status Reason Start Date Expiration Date Visits Requ ested Visits Authorized [id number] Closed 01/01/2019 01/01/2020 1 1 Encounter Details Date Type Department Care Team Description 01/30/2019 Nurse Only Ata Vega [facility] Kirt Juvenal zuluaga M.D. [address] [place] [address] [phone] for Transplantation and Shira Díaz R.N., C.C.T.CDavi [address] [place] [phone] Clinical Regeneration in [place], [place] [address] [place] [phone] Social History Tobacco Use Types Packs/Day [...] How often do you attend religious or sabianism 1 to 4 times per [...] as of this encounter Progress Notes Shira Díaz, RDaviN., C.C.T.C. - 01/30/2019 1:30 PM CDT Met with Shabnam Wray for waitlist re-evaluation and education as a potential kidney recipient. Patient did attend the kidney/pancreas education class. Informed consent to continue with the evaluation for kidney transplant evaluation was obtained at a previous visit. Ms. Shabnam Wray is a 58 y.o. 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 Immunizations were reviewed. She does not have potential living donors at this time. If the patient does identify potential living donors, the recipient was encouraged to notify the donors to call their donor coordinator for kits. Paired donation is a procedure that allows individuals who wish to givea kidney to their loved one, but cannot because they are incompatible (they have the wrong blood type or have immunity to their donor kidney). In paired donation, the donor and recipient are matched with another incompatible donor/recipient pair and the kidneys are exchanged between the pairs. The patient agreed to participate in the KPD program at a previous visit. Discussions occurred regarding some of the side-effects associated with mcfp immunosuppression and indicated that some patients would need insulin after the transplant. Following my explanations the patient was eager to proceed. It was discussed with the patient that their information will be presented to our multidisciplinary Selection Conference for final approval. Placement on the UNOS list was discussed. KDPI consent was reviewed and signed. The patient agreed to participate in the KDPI program at a previous visit. Learning needs assessed with no barriers identified. All questions answered. Patient verbalized understanding and was given my card and instructed to contact me with further questions or concerns. Modified Karnofsky performance status scale:80: Normal activity with effort (e.g., preemptive transplant but dialysis imminent or dialyzes at home [home PD or home HD]; recipient on followup who has returned to normal activity but acknowledges physical effort to do so)80: Able to carry on normal activity and to work; no special care needed: Normal activity with effort. documented in this encounter Plan of Treatment Upcoming Encounters Date Type Specialty Care Team Description 06/01/2022 Telemedicine Pharmacy An Nicholas APRN, C.N.P., D.N.P., M.S.N. [address] [place] [address] [phone] (Wo behzad) 07/31/2022 Lab Laboratory Medicine Tony Rubalcava M. B., Ch.B., M.D. [address] [place] [address] [phone] (Wo behzad) 07/31/2022 Lab Laboratory Medicine Tony Rubalcava M. B., Sydnie, Mukund [address] [place] [address] [phone] (Wo rk) 07/31/2022 Office Visit Transplant Tony Rubalcava M.B., Sydnie, Mukund [address] [place] [address] [phone] (Wo rk) 07/31/2022 Appointment Radiology Tony Rubalcava M.B., Sydnie, Mukund [address] [place] [address] [phone] (Wo behzad) 08/01/2022 Office Visit Transplant Tony Rubalcava M.B., Sydnie, Mukund [address] [place] [address] 55 [phone] (Wo rk) 08/01/2022 Clinical Support Transplant Tony Rubalcava M.B., Sydnie, Mukund [address] [place] [address] [phone] (Wo rk) documented as of this encounter Visit Diagnoses Diagnosis Pretransplant Recipient Evaluation Exam Chronic Kidney Disease Stage 5 GFR Less Than 15 Dialysis Dependent (HCC) documented in this encounter Additional Health Concerns Assessment Noted Time PHQ-9 Depression Total Score: 4 01/30/2019 12:13 PM CD T documented as of this encounter
--- OUTSIDE RECORDS SUMMARY | 2022-05-25 13:26 | XMS_ITS | Encounter Summary ---
:1960 Author Organization [facility] Address [address] [place] [address] Care Team Providers Name Role Phone Unavailable Primary Care Provider Unavailable Encounter Details Date Type Department Care Team Description 12/24/2018 Clinical Communication Department of Urology Geraldo Spear in Catrachita Hernandez M.D. [address] 200 [place] [phone] Social History Tobacco Use Types Packs/Day Years [...] How often do you attend nondenominational or holiness 1 to 4 times per year 12/23/2021 [...] or slept in a long-term (including now)? Sex Assigned at Date Recorded Female 12/23/2021 4:18 AM CDT documented as of this encounter Miscellaneous Notes Telephone Encounter - Radha Ramirez - 12/24/2018 11:[address] Spear, no antibiotics needed. Telephone Encounter - Ranjana Bui - 12/24/2018 11:23 AM CDT [facility] Lab on patient. Scanned into record. Team notified. documented in this encounter Plan of Treatment Upcoming Encounters Date Type Specialty Care Team Description 06/01/2022 Telemedicine Pharmacy An Nicholas APRN, C.N.P., D.N.P., M.S.N. [address] [place] [address] [phone] (Wo rk) 07/31/2022 Lab Laboratory Medicine Tony Rubalcava M. B., Ch.B., M.D. [address] [place] [address] 55 [phone] (Wo rk) 07/31/2022 Lab Laboratory Medicine Tony Rubalcava M. B., Ch.B., M.D. [address] [place] [address] 55 [phone] (Wo rk) 07/31/2022 Office Visit Transplant Tony Rubalcava M.B., Ch.B., Mukund [address] [place] [address] 55 [phone] (Nicolas wen) 07/31/2022 Appointment Radiology Tony Rubalcava M.B., Mukund [place] [address] [place] [address] 55 [phone] (Nicolas wen) 08/01/2022 Office Visit Transplant Tony Rubalcava M.B., Sydnie, Mukund [address] [place] [address] 55 [phone] (Nicolas wen) 08/01/2022 Clinical Support Transplant Tony Rubalcava M.B., Sydnie, Mukund [address] [place] [address] 55 [phone] (Nicolas wen) documented as of this encounter Visit Diagnoses Not on filedocumented in this encounter Additional Health Concerns Assessment Noted Time PHQ-9 Depression Total Score: 3 09/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
--- OUTSIDE RECORDS SUMMARY | 2022-05-25 13:26 | XMS_ITS | Encounter Summary ---
:1960 Author Organization [facility] Address [address] [place] [address] Care Team Providers Name Role Phone Unavailable Primary Care Provider Unavailable Reason for Visit Reason Onset Date Comments Pre-visit Testing Orders 12/24/2018 need orders- Ta mmy Encounter Details Date Type Department Care Team Description 12/24/2018 Clinical Ata Kayor, Pre-vi sit Testing Communication Center for Gloria Celestin (need Transplantation and Mukund orders- Shira) Clinical Regeneration [address] [place] [address] in [facility] [address] [place] [address] [place], [place] (Work) [phone] Social History Tobacco Use Types Packs/Day Years [...] How often do you attend evangelical or gnosticist 1 to 4 times per [...] or slept in a custodial (including now)? Sex Assigned at Date Recorded Female 12/23/2021 4:18 AM CDT documented as of this encounter Miscellaneous Notes Telephone Encounter - Terrie Lowry - 12/24/2018 2:00 PM CDT Patient is scheduled to start her REKTE on Jan [address] Plummer. Please place orders. Thank you, Bailey documented in this encounter Plan of Treatment Upcoming Encounters Date Type Specialty Care Team Description 06/01/2022 Telemedicine Pharmacy An Nicholas APRN, C.N.P., D.N.P., M.S.N. [address] [place] [address] [phone] (Wo rk) 07/31/2022 Lab Laboratory Medicine Tony Rubalcava M. B., ChAlhaji., M.Michelle. [address] [place] [address] 55 [phone] (Wo rk) 07/31/2022 Lab Laboratory Medicine Tony Rubalcava M. B., ChBurke, MElvia. [address] [place] [address] 55 [phone] (Wo rk) 07/31/2022 Office Visit Transplant Tony Rubalcava M.B., Sydnie, MElvia. [address] [place] [address] 55 [phone] (Wo rk) 07/31/2022 Appointment Radiology Tony Rubalcava M.B., Mukund [place] [address] [place] [address] [phone] (Wo rk) 08/01/2022 Office Visit Transplant Tony Rubalcava M.B., Mukund [place] [address] [place] [address] 55 [phone] (Wo rk) 08/01/2022 Clinical Support Transplant Tony Rubalcava M.B., Sydnie, Mukund [address] [place] [address] 55 [phone] (Wo rk) documented as of this encounter Visit Diagnoses Not on filedocumented in this encounter Additional Health Concerns Assessment Noted Time PHQ-9 Depression Total Score: 3 09/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
--- OUTSIDE RECORDS SUMMARY | 2022-05-25 13:26 | XMS_ITS | Encounter Summary ---
:1960 Author Organization [facility] Address [address] [place] [address] Care Team Providers Name Role Phone Unavailable Primary Care Provider Unavailable Encounter Details Date Type Department Care Team Description 12/30/2018 Orders Only Division of Nephrology and Neymar Martínez Hypertension in [place], ., D.O. [place] [address] [facility] [address] [place] [address] [phone] (Wo rk) Social History Tobacco Use Types [...] How often do you attend zoroastrian or latter-day 1 to 4 times per [...] or slept in a fpc (including now)? Sex Assigned at Date Recorded Female 12/23/2021 4:18 AM CDT documented as of this encounter Plan of Treatment Upcoming Encounters Date Type Specialty Care Team Description 06/01/2022 Telemedicine Pharmacy An Nicholas APRN C.N.P., D.N.P., M.S.N. [address] [place] [address] [phone] (Wo rk) 07/31/2022 Lab Laboratory Medicine Tony Rubalcava M. B., Sydnie, MDebra [address] [place] [address] 55 [phone] (Wo rk) 07/31/2022 Lab Laboratory Medicine Tony Rubalcava M. B., Sydnie, MDebra [address] [place] [address] 55 [phone] (Wo rk) 07/31/2022 Office Visit Transplant Tony Rubalcava M.B., ChBurke, MDebra [address] [place] [address] 55 [phone] (Wo rk) 07/31/2022 Appointment Radiology Tony Rubalcava M.B., Sydnie, MDebra [address] [place] [address] 55 [phone] (Wo rk) 08/01/2022 Office Visit Transplant Tony Rubalcava M.B., Sydnie, MDebra [address] [place] [address] 55 [phone] (Wo rk) 08/01/2022 Clinical Support Transplant Tony Rubalcava M.B., Sydnie, Shashi. 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
--- OUTSIDE RECORDS SUMMARY | 2022-05-25 13:26 | XMS_ITS | Encounter Summary ---
:1960 Author Organization [facility] Address [address] [place] [address] Care Team Providers Name Role Phone Unavailable Primary Care Provider Unavailable Encounter Details Date Type Department Care Team Description 12/26/2018 Ancillary Procedure Department of Urology Social History [...] How often do you attend temple or moravian 1 to 4 times per [...] or slept in a detention (including now)? Sex Assigned at Date Recorded Female 12/23/2021 4:18 AM CDT documented as of this encounter Plan of Treatment Upcoming Encounters Date Type Specialty Care Team Description 06/01/2022 Telemedicine Pharmacy An Nicholas APRN, C.NDaviPDavi, Michelle.N.P., M.S.N. [address] [place] [address] [phone] (Wo rk) 07/31/2022 Lab Laboratory Medicine oTny Rubalcava M. B., Sydnie, Mukund [address] [place] [address] 55 [phone] (Wo rk) 07/31/2022 Lab Laboratory Medicine Tony Rubalcava M. B., Sydnie, Mukund [address] [place] [address] [phone] (Wo rk) 07/31/2022 Office Visit Transplant Tony Rubalcava M.B., Sydnie, MDebra [address] [place] [address] [phone] (Wo rk) 07/31/2022 Appointment Radiology Tony Rubalcava M.B., ChBurke, Mukund [address] [place] [address] 55 [phone] (Wo rk) 08/01/2022 Office Visit Transplant Tony Rubalcava M.B., Sydnie, MDebra [address] [place] [address] 55 [phone] (Wo rk) 08/01/2022 Clinical Support Transplant Tony Rubalcava M.B., Sydnie, MDebra [address] [place] [address] 55 [phone] (Wo rk) documented as of this encounter Procedures Procedure Name Priority Date/Time Associated Diagnosis Comme nts UROLOGY IMAGE EXAM Routine 12/26/2018 11:00 AM Re sults for this CDT procedure are i n the results section. documented in this encounter Results RT STENT-Urology Image Exam (12/26/2018 11:00 AM CDT) Specimen (Source) Anatomical Collection Method Collection Time Re ceived Time Location / / Volume Laterality 12/26/2018 11:00 AM CDT Narrative [facility] - 12/26/2018 12:25 PM CDT This order has been created and auto-finalized to support the import of images acquired without order. The clini rfedi documentation to support these images can be found on the encounter brett t produced images. 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
--- OUTSIDE RECORDS SUMMARY | 2022-05-25 13:26 | XMS_ITS | Encounter Summary ---
:[address] [facility] Address [address] [place] [address] Care Team Providers Name Role Phone Unavailable Primary Care Provider Unavailable Encounter Details Date Type Department Care Team Description 12/23/2018 Clinical Communication Department of Urology Geraldo Spear in Catrachita Hernandez M.D. [address] 200 [place] [phone] [phone] Social History Tobacco Use Types Packs/Day Years [...] How often do you attend jewish or lutheran 1 to 4 times per [...] or slept in a mcc (including now)? Sex Assigned at Date Recorded Female 12/23/2021 4:18 AM CDT documented as of this encounter Miscellaneous Notes Telephone Encounter - Geraldo Spear M.D. - 12/23/2018 12:51 PM CDT No treatment Telephone Encounter - Ranjana Bui - 12/23/2018 10:03 AM CDT UA and UC received [facility] on patient. Scanned into record. Team notified. documented in this encounter Plan of Treatment Upcoming Encounters Date Type Specialty Care Team Description 06/01/2022 Telemedicine Pharmacy An Nicholas APRN, C.N.P., D.N.P., M.S.N. [address] [place] [address] 55 [phone] (Wo rk) 07/31/2022 Lab Laboratory Medicine Tony Rubalcava M. B., Ch.B., M.D. [address] [place] [address] 55 [phone] (Wo behzad) 07/31/2022 Lab Laboratory Medicine Tony Rubalcava M. B., Ch.B., M.D. [address] [place] [address] 55 [phone] (Wo rk) 07/31/2022 Office Visit Transplant Tony Rubalcava M.B., Ch.BDavi, Mukund [address] [place] [address] 55 [phone] (Nicolas wen) 07/31/2022 Appointment Radiology Tony Rubalcava M.B., Mukund [place] [address] [place] [address] 55 [phone] (Nicolas wen) 08/01/2022 Office Visit Transplant Tony Rubalcava M.B., [place]und [place] [address] [place] [address] 55 [phone] (Nicolas wen) 08/01/2022 Clinical Support Transplant Tony Rubalcava M.B., Sydnie, Mukund [address] [place] [address] 55 [phone] (Nicolas wen) documented as of this encounter Visit Diagnoses Not on filedocumented in this encounter Additional Health Concerns Assessment Noted Time PHQ-9 Depression Total Score: 3 09/13/2017 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
--- OUTSIDE RECORDS SUMMARY | 2022-05-25 13:26 | XMS_ITS | Encounter Summary ---
:1960 Author Organization [facility] Address [address] [place] [address] Care Team Providers Name Role Phone Unavailable Primary Care Provider Unavailable Encounter Details Date Type Department Care Team Description 12/26/2018 Anesthesia Event Outpatient Procedure Mark Aldana APRN, FLORENCIO, RDaviNDavi Wayne in [facility] Mumtaz Willard M.D. [address] [place] [id number] [place] [address] [place] [phone] Anesthesia Record Procedure Summary Procedure Name Responsible Anesthesia Start Anesthesia Stop Time Anesthesiologist Time EXCHANGE URETERAL Daniel Aldana APRN, 12/26/18 1128 9 1234 STENT. (Right) Camron MATIAS Events Date Time Event Comment 12/26/2018 1010 1128 An Start Machine/Equipmen t Checked Infection Precautions Foll owed Procedure/Site Verified NPO Sta tus Verified Supine Standard ASA Mon itors Applied 1128 In Room 1140 Turnover to Proceduralist 1158 Proc Start 1220 Proc Fin 1227 Out of Room 1227 Turnover to ANE Staff 1227 an stop data 1234 An End I completed my h andoff to the receiving [facility] 1. Identified the patient 2. Ident ified the responsible provider 3. Revi ewed the pertinent medical history 4. Discu ssed the surgical course 5. Reviewed intra-o p anesthesia management and issues during an esthesia 6. Set expectations for post-procedure period 7. Allowed opportun ity for questions and acknowledgement of understanding. Name Total fentanyl injection 50 mcg/mL 75 mcg propofol 10 mg/mL infusion 441.98 mg propofol 10 mg/mL injection 100 mg lidocaine 2% (mg) injection 60 mg ondansetron PF 4 mg/2 mL injection 4 mg ceFAZolin injection 2 g (ANCEF) 2 g phenylephrine 100 mcg/mL injection 450 mcg lactated ringers 800 mL Agents No agents on file. Blood No blood administrations on file. Lines, Drains, and Airways Type Details Placement Removal Retired (Do not use) Placement Date: 08/24/03 0000 by 09/16/19 1 422 by Hemodialysis AV Access 08/24/03 (Elvia Wade Taylor, Katherine M, [place], [place]); R.N. R.N. Removal Date: 09/16/19; Removal Time: 1422 Percutaneous Access Site 12/23/18; 1210; Yes; 12/23/18 1210 by 0 02/10/19 1356 by Yes; Yes; Cap, Willers, Cesar W, AleksNoelle L, Gloves, Gown, Large R.N. R.N. drape, Mask (Clinician), Mask (All others in room); 12/23/18; 1332; woggel in place; 02/10/19; 1356 Peripheral IV Placement Date: 12/26/18 1013 by 12/26/18 1417 b y 12/26/18; Placement Radha Palacio Paulson, D enise M, Time: 1013; Catheter M.S.N., R.N. R.N. Size: 22 G; Orientation: Right; Location: Hand; Site Prep: Alcohol; Technique: Anatomical landmarks; Insertion Attempts: 1; Removal Date: 12/26/18; Removal Time: 1417 documented in this encounter Social History Tobacco [...] How often do you attend mormonism or sabianist 1 to 4 times per [...] slept in a group home (including now)? Sex Assigned at Date Recorded Female 12/23/2021 4:18 AM CDT documented as of this encounter OR Notes Anesthesia Postprocedure Evaluation - Daniel Aldana APRN, CRNA - 12/26/2018 12:35 PM CDT Patient: Shabnam Wray Procedure Summary Date: 12/26/18 Room / Location: [place] [address] / [facility] in [place], [place] Anesthesia Start: 1128 Anesthesia Stop: 1234 Procedures: EXCHANGE URETERAL STENT. (Right ) RETROGRADE PYELOGRAM (Right ) Diagnosis: Ureteral Stent Exchange (Right ureteral obstruction, right ureteral stent indwelling.) Surgeon: Geraldo Spear M.D. Responsible Provider: Daniel Aldana APRN, CRNA Anesthesia Type: MAC ASA Status: 3 Anesthesia Type: MAC Last vitals Vitals Value Taken Time BP 96/65 12/26/2018 12:33 PM Temp 36.5 ??C 12/26/2018 12:33 PM Pulse 67 12/26/2018 12:34 PM Resp 17 12/26/2018 12:34 PM SpO2 91 % 12/26/2018 12:34 PM Vitals shown include unvalidated device data. [...] Hydration status: euvolemic Anesthesia Preprocedure Evaluation - Mumtaz Willard M.D. - 12/26/2018 10:09 AM CDT Anesthesia Pre-Evaluation Pertinent components of the patient's history including current problem list, medical history, surgical history, family history, social history, medications and allergies were reviewed and updated as appropriate. The patient was examined and the Pre-op diagnosis, planned procedure, and H&P were reviewed and remain unchanged. PROBLEM LIST Relevant Problems CV (+) Hypertension And Chronic Kidney Disease Stage 1 To 4 RENAL/REPRO (+) Chronic Kidney Disease NOS (+) Chronic Kidney Disease Stage 3 Glomerular Filtration Rate 30 To 59 (HCC) (+) Chronic Kidney Disease Stage 4 Glomerular Filtration Rate 15-29 (HCC) (+) Chronic Kidney Disease Stage 5 Glomerular Filtration Rate Less Than 15 (HCC) (+) Hypertension And Chronic Kidney Disease Stage 1 To 4 ENDO (+) Diabetes Mellitus Type 2 (HCC) Other (+) Transplant Renal (HCC) OBJECTIVE PHYSICAL EXAMINATION Airway (HEENT) Mallampati: III TM Distance: >3 FB Neck ROM: Full Mouth Opening: >3 cm Cardiovascular Rhythm: Regular Rate: Normal Cardiovascular Assessment: cardiovascular normal Functional Capacity: >4 METS Pulmonary Pulmonary Assessment: Clear and non labored Neurological Neurologic Assessment:??alert Musculoskeletal Palpable thrill in LUE fistula ASSESSMENT / PLAN ANESTHESIA PLAN ASA: 3 Anesthesia Plan: MAC Patient seen and allergies reviewed; anesthesia plan and risks discussed directly with patient / legal guardian, or through an steward/stewardess third; patient evaluated and approved for anesthesia / sedation. The use of blood products not discussed documented in this encounter Miscellaneous Notes Addendum Note - Mumtaz Willard M.D. - 12/26/2018 1:29 PM CDT Addendum created 12/26/18 1279 by Mumtaz Willard M.D. Order list changed documented in this encounter Plan of Treatment Upcoming Encounters Date Type Specialty Care Team Description 06/01/2022 Telemedicine Pharmacy An Nicholas APRN C.N.P., D.N.P., M.S.N. [address] [place] [phone] (Nicolas wen) 07/31/2022 Lab Laboratory Medicine Tony Rubalcava M. B., Sydnie, MElvia. [address] [place] [phone] (Nicolas wen) 07/31/2022 Lab Laboratory Medicine Tony Rubalcava M. B., ChBurke, MElvia. [address] [place] [phone] (Nicolas wen) 07/31/2022 Office Visit Transplant Tony Rubalcava M.B., ChDaviBDavi, MDaviDDavi [address] [place] [phone] (Nicolas wen) 07/31/2022 Appointment Radiology Tony Rubalcava M.B., ChDaviBDavi, MDaviD. [address] [place] [phone] (Nicolas wen) 08/01/2022 Office Visit Transplant Tony Rubalcava M.B., ChBurke, MDaviD. [address] [place] [phone] (Nicolas wen) 08/01/2022 Clinical Support Transplant Tony Rubalcava M.B., Mukund Otoole [address] [place] [phone] (Wo rk) documented as of this encounter Visit Diagnoses Not on filedocumented in this encounter Administered Medications Inactive Administered Medications - up to 3 most recent administrations Medication Order MAR Action Action Date Dose Rate Site ceFAZolin injection 2 g (ANCEF) Given 12/26/2018 11:40 AM CDT 2 g 2 g, intravenous, Once, On Elizabeth 12/26/18 at 1000, For 1 dose, Intra-Op, [place]minster IV push over 3 minutes. Add 5 mL NS to 1 gram vial for a final concentration of 200 mg/mL., Drug Monitoring Program: Pharmacist to adjust medication dosing based on indication and drug clearance factors., Indications: Prophylaxis, surgical fentaNYL injection (SUBLIMAZE) Given 12/26/2018 11:59 AM CDT 25 mcg intravenous, As needed, severe pain or score 7-10 of 10, Starting on Elizabeth 12/26/18 at 1136, Anesthesia Intra-op Given 12/26/2018 11:36 AM CDT 50 mcg lidocaine (PF) (cardiac) injection Given 12/26/2018 11:34 AM CDT 60 mg intravenous, As needed, Starting on Elizabeth 12/26/18 at 1134, Anesthesia Intra-op ondansetron (PF) injection (ZOFRAN) Given 12/26/2018 11:39 AM CDT 4 mg intravenous, As needed, nausea, vomiting, Starting on Elizabeth 12/26/18 at 1139, Anesthesia Intra-op phenylephrine injection Given 12/26/2018 12:17 PM CDT 100 mcg As needed, Starting on Elizabeth 12/26/18 at 1145, Anesthesia Intra-op Given 12/26/2018 12:09 PM CDT 75 mcg Given 12/26/2018 12:04 PM CDT 100 mcg propofol 10 mg/mL infusion Rate/Dose 12/26/2018 120 mcg/kg/min 70.6 mL/hr (DIPRIVAN) Change 12:06 PM CDT intravenous, Continuous Infusion: Per Instructions PRN, Starting on Elizabeth 12/26/18 at 1136, Anesthesia Intra-op Rate/Dose Change 12/26/2018 12:01 PM CDT 140 mcg/kg/min 82.3 mL/hr Rate/Dose Change 12/26/2018 11:55 AM CDT 150 mcg/kg/min 88.2 mL/hr propofol injection (DIPRIVAN) Given 12/26/2018 12:18 PM CDT 20 mg intravenous, As needed, Starting on Elizabeth 12/26/18 at 1136, Anesthesia Intra-op Given 12/26/2018 11:55 AM CDT 20 mg Given 12/26/2018 11:47 AM CDT 20 mg documented in this encounter Additional Health Concerns Assessment Noted Time PHQ-9 Depression Total Score: 3 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
--- OUTSIDE RECORDS SUMMARY | 2022-05-25 13:26 | XMS_ITS | Encounter Summary ---
:1960 Author Organization [facility] Address [address] [place] [address] Care Team Providers Name Role Phone Unavailable Primary Care Provider Unavailable Encounter Details Date Type Department Care Team Description 01/28/2019 Hospital Encounter Department of Ju[facility]al Plummer ansplant Recipient Evaluation Exam; Radiology, Mickey Yap M.D. Chronic Kidney Disease Stage 5 GFR Less Than 15 Dialysis Dependent (HCC) Building, in [address] [place] [id number] [place] [address] [place], [place] (Work) [phone] Social History Tobacco Use [...] How often do you attend holiness or evangelical 1 to 4 times per [...] 1 tablet by 0 06/13/2017 05/31/20 19 [id number] mouth daily. (DIALYVITE) [id number] pc-yx-tef-mg tablet ciprofloxacin (CIPRO) Take 1 tablet by [...] Nicholas APRN C.N.P., D.N.P., M.S.N. [address] [place] [phone] (Nicolas wen) 07/31/2022 Lab Laboratory Medicine Tony Rubalcava M. B., Ch.B., M.D. [address] [place] [phone] (Nicolas wen) 07/31/2022 Lab Laboratory Medicine Tony Rubalcava M. B., Ch.B., M.D. [address] [place] [phone] (Nicolas wen) 07/31/2022 Office Visit Transplant Tony Rubalcava M.B., Ch.B., M.D. [address] [place] [phone] (Nicolas wen) 07/31/2022 Appointment Radiology Tony Rubalcava M.B., Mukund Otoole [address] [place], [place] [phone] (Wo rk) 08/01/2022 Office Visit Transplant Tony Rubalcava M.B., Mukund Otoole [address] [place], [place] [phone] (Wo rk) 08/01/2022 Clinical Support Transplant Tony Rubalcava M.B., Mukund Otoole [address] [place], [place] [phone] (Wo rk) documented as of this encounter Procedures Procedure Name Priority Date/Time Associated Diagnosis Comme nts DX CHEST AP OR PA Routine 01/28/2019 8:28 AM Pretransplant Res ults for this AND LATERAL 2 CDT Recipient Evaluation proced ure are in VIEWS Exam the results Chronic Kidney Disease secti on. Stage 5 GFR Less Than 15 Dialysis Dependent (HCC) documented in this encounter Results DX Chest AP or PA and Lateral 2 Views (01/28/2019 8:28 AM CDT) Anatomical Region Laterality Modality Chest, Thoracic RST LOS, Thoracic ARZ LOS, Thoracic N/A Digital Radiography FLA LOS Specimen (Source) Anatomical Collection Method Collection Time Re ceived Time Location / / Volume Laterality 01/28/2019 8:49 AM CDT Impressions 01/28/2019 8:50 AM CDT No change since 09/11/2017. Old healed left rib fracture. Aortic calcification. Chest otherwise negative. Narrative 01/28/2019 8:50 AM CDT EXAM: ??DX CHEST AP OR PA AND LATERAL 2 VIEWS Procedure Note Bill Gann M.D. - 01/28/2019Fo rmatting of this note might be different from the original. EXAM: DX CHEST AP OR PA AND LATERAL 2 EWS IMPRESSION: No change since 09/11/2017. Old healed le ft rib fracture. Aortic calcification. Chest otherwise negative. [facility] documented in this encounter Visit Diagnoses Diagnosis Pretransplant Recipient Evaluation Exam Chronic Kidney Disease Stage 5 GFR Less Than 15 Dialysis Dependent (HCC) documented in this encounter Additional Health Concerns Assessment Noted Time PHQ-9 Depression Total Score: 3 01/28/2019 9:30 AM CDT documented as of this encounter
--- OUTSIDE RECORDS SUMMARY | 2022-05-25 13:26 | XMS_ITS | Encounter Summary ---
:1960 Author Organization [facility] Address [address] [place] [address] Care Team Providers Name Role Phone Unavailable Primary Care Provider Unavailable Reason for Referral Transplant (Routine) - Closed Specialty Diagnoses / Procedures Referred By Contact Refer red To Contact Transplant Surgery / Diagnoses Pretransplant Recipient Evaluation Exam Chronic Kidney Disease Stage 5 GFR Less Than 15 Dialysis Dependent (HCC) [facility] [address] [place] [address] Referral ID Status Reason Start Date Expiration Date Visits Requ ested Visits Authorized [id number] Closed 01/01/2019 01/01/2020 1 1 Transplant (Routine) - Closed Specialty Diagnoses / Procedures Referred By Contact Refer red To Contact Transplant Surgery / Diagnoses Pretransplant Recipient Evaluation Exam Chronic Kidney Disease Stage 5 GFR Less Than 15 Dialysis Dependent (HCC) [facility] [address] [place] [address] Referral ID Status Reason Start Date Expiration Date Visits Requ ested Visits Authorized [id number] Closed 01/01/2019 01/01/2020 1 1 Specialty Diagnoses / Procedures Referred By Contact Refer red To Contact [facility] [address] [place] [address] Referral ID Status Reason Start Date Expiration Date Visits Requ ested Visits Authorized Transplant (Routine) - Closed Specialty Diagnoses / Procedures Referred By Contact Refer red To Contact Transplant Surgery / Diagnoses Pretransplant Recipient Evaluation Exam Chronic Kidney Disease Stage 5 GFR Less Than 15 Dialysis Dependent (HCC) [facility] Transplant [place].Whitney [address] [place] [address] Referral ID Status Reason Start Date Expiration Date Visits Requ ested Visits Authorized [id number] Closed 01/01/2019 01/01/2020 1 1 Scheduling Instructions Patient is on hemodialysis Transplant (Routine) - Closed Specialty Diagnoses / Procedures Referred By Contact Refer red To Contact Transplant Surgery / Diagnoses Pretransplant Recipient Evaluation Exam Chronic Kidney Disease Stage 5 GFR Less Than 15 Dialysis Dependent (HCC) [facility] [address] [place] [address] Referral ID Status Reason Start Date Expiration Date Visits Requ ested Visits Authorized [id number] Closed 01/01/2019 01/01/2020 1 1 Transplant (Routine) - Closed Specialty Diagnoses / Procedures Referred By Contact Refer red To Contact Transplant Surgery / Diagnoses Pretransplant Recipient Evaluation Exam Chronic Kidney Disease Stage 5 GFR Less Than 15 Dialysis Dependent (HCC) [facility] Transplant MDebra [address] [place] [address] Referral ID Status Reason Start Date Expiration Date Visits Requ ested Visits Authorized [id number] Closed 01/01/2019 01/01/2020 1 1 Encounter Details Date Type Department Care Team Description 01/01/2019 Orders Only Shira Pérez, Chr onic Kidney Disease Stage 5 GFR Less Than 15 Dialysis Dependent (HCC) (Primary Dx); [facility] Pretransplant Recipient Evaluation Exam; Transplantation and [address] Fatigue ; Clinical Regeneration in [employer], [place] Fa ilure Renal End Stage (HCC) ; [place], [place] [id number] Hypertension Essential Primary [address] [phone] [place] [address] (Work) [phone] Social History Tobacco Use Types Packs/Day Years [...] How often do you attend adventism or roman catholic 1 to 4 times [...] slept in a long term (including now)? Sex Assigned at Date Recorded Female 12/23/2021 4:18 AM CDT documented as of this encounter Plan of Treatment Upcoming Encounters Date Type Specialty Care Team Description 06/01/2022 Telemedicine Pharmacy Cristopher Ansarah Yap APRN, C.N.P., Clement., M.S.N. [address] [place] [address] [phone] (Wo rk) 07/31/2022 Lab Laboratory Medicine Tony Rubalcava M. B., Sydnie, Mukund [address] [place] [address] [phone] (Wo rk) 07/31/2022 Lab Laboratory Medicine Tony Rubalcava M. B., Sydnie, Mukund [address] [place] [address] [phone] ( rk) 07/31/2022 Office Visit Transplant Tony Rubalcava M.B., Sydnie, Mukund [address] [place] [address] [phone] (Wo rk) 07/31/2022 Appointment Radiology Tony Rubalcava M.B., Sydnie, Mukund [address] [place] [address] [phone] ( rk) 08/01/2022 Office Visit Transplant Tony Rubalcava M.B., Sydnie, Mukund [address] [place] [address] [phone] (Wo rk) 08/01/2022 Clinical Support Transplant Tony Rubalcava M.B., Sydnie, Mukund [address] [place] [address] [phone] ( rk) Scheduled Referrals Name Type Priority Associated Diagnoses Order S chedule Transplant - Nurse Outpatient Referral Routine Pretransplant E xpected: coordinator consult Recipient Evaluation 01/28/2019 (clinic) Exam (Approximate), Chronic Kidney Expires: Disease Stage 5 GFR 01/02/20 20 Less Than 15 Dialysis Dependent ([facility]) Transplant - Social Outpatient Referral Routine Pretransplant Expected: work consult Recipient Evaluation 019 (clinic) Exam (Approximate), Chronic Kidney Expires: Disease Stage 5 GFR 01/02/20 20 Less Than 15 Dialysis Dependent (HCC) Transplant Kidney / Outpatient Referral Routine Pretransplant Expected: pancreas office Recipient Evaluation 01/18 visit (clinic) - Exam (Approximate), Provider Chronic Kidney Expires: Disease Stage 5 GFR 01/02/20 20 Less Than 15 Dialysis Dependent ([facility]) Transplant - Kidney Outpatient Referral Routine Pretransplant Expected: pancreas pre Recipient Evaluation 019 education visit Exam (Approximate), (clinic) Chronic Kidney Expires: Disease Stage 5 GFR 01/02/20 20 Less Than 15 Dialysis Dependent ([facility]) Transplant - Outpatient Referral Routine Pretransplant Expecte d: Psychiatry and Recipient Evaluation 01/28 Psychology consult Exam (Approximate), (clinic) Chronic Kidney Expires: Disease Stage 5 GFR 01/02/20 20 Less Than 15 Dialysis Dependent (HCC) Transplant - Heart Outpatient Referral Routine Pretransplant E xpected: consult (clinic) Recipient Evaluation 06/2019 Exam (Approximate), Chronic Kidney Expires: Disease Stage 5 GFR 01/02/20 20 Less Than 15 Dialysis Dependent (HCC) documented as of this encounter Results ECHO STRESS 2D WITH COLOR, DOPPLER AND CONTRAST (01/28/2019 3:58 PM CDT) [facility] Method Time Signature Ejection Fraction 60 MC CV EIMS Mid-Ascending Aorta 37 MC CV EIMS Wall Motion Score 1.00 MC CV EIMS Index LV Mass Index 84 MC CV EIMS LV End-Diastolic 48 MC CV EIMS Diameter LV End-Systolic 30 MC CV EIMS Diameter MV E Velocity 0.7 MC CV EIMS MV A Velocity 0.6 MC CV EIMS MV E/A 1.17 MC CV EIMS MV e' Velocity 0.06 MC CV EIMS Medial MV E/e' Medial 11.7 MC CV EIMS LV Interventricular 10 MC CV EIMS Septal Wall Thickness LV Posterior Wall 10 MC CV EIMS Thickness LV Relative Wall 42 MC CV EIMS Thickness RV 4-Chamber Basal 42 MC CV EIMS Diameter RV 4-Chamber Mid 32 MC CV EIMS Diameter RV 4-Chamber Length 74 MC CV EIMS Tricuspid Annular S? 0.15 MC CV EIMS TR Vmax 2.25 MC CV EIMS RA Pressure 5 MC CV EIMS RV Systolic Pressure 25 MC CV EIM S LA Volume Index 45 MC CV EIMS WMSI At Rest 1.00 MC CV EIMS WMSI At Peak Stress 1.00 MC CV EIMS Anatomical Region Laterality Modality Echocardiography Specimen (Source) Anatomical Collection Method Collection Time Re ceived Time Location / / Volume Laterality 01/28/2019 2:46 PM CDT Narrative 01/28/2019 5:30 PM CDT For the complete report, see the Order-L evel Documents below. Final Impressions 1. Dobutamine stress echocardiogram nega tive for myocardial ischemia. 2. A peak heart rate of 127 BPM was achi eved (79 % age-predicted maximal HR). 3. Ejection fraction response from 60 % at rest to 75 % at peak stress. 4. Left ventricular end-systolic volume decreased with stress. 5. No regional wall motion abnormalities with stress. Findings STRESS TEST: ??Dobutamine was infused fr om 5 mcg/kg/min to 40.0 mcg/kg/min. ??A dose of 2 mg of atropine was administered. ??A peak hear t rate of 127 BPM was achieved (79 % age-predicted maximal HR). ??The test was terminated d ue to peak dose given. ??The baseline ECG demonstrated sinus rhythm. ??At baseline there were n o ST changes. ??With stress, there were no S-T changes. VPC's and APC's present at stress. ??The stress ECG was negative for ischemia. ??Please see Nursing Notes for additional information . ??LEFT VENTRICLE: ??Normal left ventricular chamber size. ??Normal left ventricular wall thi ckness. ??No regional wall motion abnormalities. Indeterminate left ventricular diastolic function grade. ??RIGHT VENTRICLE: ??Borderline right ventricular enlargement. ??Normal right ventricular systolic function. ??Estimated right ventricular systolic pressure 25 mmHg (s ystolic blood pressure 138 mmHg). ??ATRIA: Moderate-severe left atrial enlargement. ??Left atrial volume index 45 ml/m^2. ??Normal right atrial size. ??CARDIAC VALVES: ??Trileaf let aortic valve. ??Sclerotic aortic valve. ??Trivial aortic valve regurgitation. ??Mildly thi ckened mitral valve. ??Calcified mitral annulus. ??Mild mitral valve regurgitation. ??Normal pul monary valve. ??Trivial pulmonary valve regurgitation. Normal tricuspid valve. ??Trivial tricus pid valve regurgitation. ??OTHER ECHO FINDINGS: ??Normal inferior vena cava size with normal insp iratory collapse (>50%). ??Normal ascending aorta dimension. ??No intracardiac mass or thr ombus, but the left atrial appendage cannot be visualized adequately with transthoracic echo to exclude thrombus in this location. ??No pericardial effusion. For the complete report, see the Order-L evel Documents below. See PDF For Result Procedure Note Marco Antonio Coyle M.D. - 01/28/2019Formattin g of this note might be different from the original. For the complete report, see the Order-L evel Documents below. Final Impressions 1. Dobutamine stress echocardiogram nega tive for myocardial ischemia. 2. A peak heart rate of 127 BPM was achi eved (79 % age-predicted maximal HR). 3. Ejection fraction response from 60 % at rest to 75 % at peak stress. 4. Left ventricular end-systolic volume decreased with stress. 5. No regional wall motion abnormalities with stress. Findings STRESS TEST: Dobutamine was infused from 5 mcg/kg/min to 40.0 mcg/kg/min. A dose of 2 mg of atropine was administered. A peak heart rate of 127 BPM was achieved (79 % age-predicted maximal HR). The test was terminated due to peak dose given. The baseline ECG demonstrated sinus rhythm. At baseline there were no ST changes. With stress, there were no S-T changes. VPC's and APC's present at stress. The s tress ECG was negative for ischemia. Please see Nursing Notes for additional information . LEFT VENTRICLE: Normal left ventricular chamber size. Normal left ventricular wall thick ness. No regional wall motion abnormalities. Indeterminate left ventricular diastolic function grade. RIGHT VENTRICLE: Borderline right ventricular enlargement. Normal right ve ntricular systolic function. Estimated right ventricular systolic pressure 25 mmHg (s ystolic blood pressure 138 mmHg). ATRIA: Moderate-severe left atrial enlargement. Left atrial volume index 45 ml/m^2. Normal right atrial size. CARDIAC VALVES: Trileaflet aortic valve. Sclerotic aortic valve. Trivial aortic valve regurgitation. Mildly thick ened mitral valve. Calcified mitral annulus. Mild mitral valve regurgitation. Normal pulmo nary valve. Trivial pulmonary valve regurgitation. Normal tricuspid valve. Trivial tricuspi d valve regurgitation. OTHER ECHO FINDINGS: Normal inferior vena cava size with normal insp iratory collapse (>50%). Normal ascending aorta dimension. No intracardiac mass or throm bus, but the left atrial appendage cannot be visualized adequately with transthoracic echo to exclude thrombus in this location. No pericardial effusion. For the complete report, see the Order-L evel Documents below. See PDF For Result Juvenal Plummer M.D. CV ECHO PROCEDURES ECG 12 Lead (01/28/2019 10:24 AM CDT) P athologist Signature Ventricular Rate 71 BPM MUSE ECG/Min LA Interval 194 ms MUSE QRSD Interval 86 ms MUSE QT Interval 408 ms MUSE QTC Interval 443 ms MUSE P Brutus 34 degrees MUSE R Brutus -25 degrees MUSE T Wave Brutus 27 degrees MUSE Specimen Anatomical Collection Method Collection Time Receive d Time (Source) Location / / Volume Laterality 01/28/2019 10:24 01/28/2019 AM CDT 10:32 AM CDT Impressions MUSE - 01/28/2019 10:32 AM CDT Sinus rhythm Premature atrial complexes Low anterior forces Otherwise normal ECG When compared with ECG of 12-SEP-2017 07 :56, Premature atrial complexes are now prese nt Narrative This result has an attachment that is no t available. Procedure Note Daniel Jenkins M.D. - 01/28/2019Form atting of this note might be different from the original. IMPRESSION: Sinus rhythm Premature atrial complexes Low anterior forces Otherwise normal ECG When compared with ECG of 12-SEP-2017 07 :56, Premature atrial complexes are now prese nt Juvenal Plummer M.D. ECG ORDERABLES Performing Organization Address City/State/ZIP [...] fracture. Aortic calcification. Chest otherwise negative. Juvenal Plummer M.D. IMG DIAGNOSTIC IMAGING PROCE DURES Measles (Rubeola) Ab, IgG (01/28/2019 7:08 AM CDT) athologist Signature Measles Positive 01/28/2019 (Rubeola) Ab, 11:43 AM CDT IgG, S Comment: Results suggest response to immunization or prior exposure to the virus. ----REFERENCE VALUE---- Vaccinated: Positive (>=1.1 AI) Unvaccinated: Negative (<=0.8 AI) Measles IgG Antibody Index 5.7 01/28/2019 11 :43 AM CDT Specimen Anatomical Collection Method Collection Time Receive d Time (Source) Location / / Volume Laterality Blood (Blood, 01/28/2019 7:08 AM 01/29/20 19 9:54 Venous) CDT AM CDT Juvenal Plummer M.D. LAB MICROBIOLOGY - BLOOD ORD ERABLES Performing Organization Address City/State/ZIP Code Phon e Number [facility] [address] [place] [employer], [place] [address] Rubella Antibodies, IgG (01/28/2019 7:08 AM CDT) athologist Signature Rubella Ab, Positive 01/28/2019 IgG, S 11:42 AM CDT Comment: Results suggest response to immunization or prior exposure to the virus. ----REFERENCE VALUE---- Vaccinated: Positive (>=1.0 AI) Unvaccinated: Negative (<=0.7 AI) Rubella IgG Antibody Index 2.9 01/28/2019 11 :42 AM CDT Specimen Anatomical Collection Method Collection Time Receive d Time (Source) Location / / Volume Laterality Blood (Blood, 01/28/2019 7:08 AM 01/29/20 19 9:54 Venous) CDT AM CDT Juvenal Plummer M.D. LAB MICROBIOLOGY - BLOOD ORD ERABLES Performing Organization Address [facility]/ZIP Code Phon e Number [facility] [address] [place] [address] [facility] Varicella-Zoster Ab, IgM and IgG (01/28/2019 7:08 AM CDT) Analysis Performed At Patho logist Time Signature Varicella-Zost Equivocal 01/28/2019 er Ab, IgG, S 11:42 AM CDT Comment: Recommend follow-up testing in 10-14 day s if clinically indicated. ----REFERENCE VALUE---- Vaccinated: Positive (>=1.1 AI) Unvaccinated: Negative (<=0.8 AI) Varicella IgG Antibody Index 0.9 01/28/2019 11:42 AM CDT Varicella-Zoster Ab, IgM, S Negative Negative 01/28/2019 3 :48 PM CDT Specimen Anatomical Collection Method Collection Time Receive d Time (Source) Location / / Volume Laterality Blood (Blood, 01/28/2019 7:08 AM 01/29/20 19 9:54 Venous) CDT AM CDT Juvenal Plummer M.D. LAB MICROBIOLOGY - BLOOD ORD ERAOWEN Performing Organization Address City/[facility]/ZIP Code Phon e Number [place] [id number] [place] [address] [facility] HSV Types 1 and 2 Ab (01/28/2019 7:08 AM CDT) P athologist Signature HSV Type 1 Ab, Positive Negative 01/28/2019 IgG, S 11:42 AM CDT HSV Type 2 Ab, Positive Negative 01/28/2019 IgG, S 11:42 AM CDT HSV Ab Screen, Negative Negative 01/28/2019 IgM, S by EIA 3:24 PM CDT Comment: ----ADDITIONAL INFORMATION---- This test has been modified from the man ufacturer's instructions. Its performance characteri stics were determined by [facility] in a manner co nsistent with CLIA requirements. This test has not bee n cleared or approved by the U.S. Food and Drug Admin istration. Specimen Anatomical Collection Method Collection Time Receive d Time (Source) Location / / Volume Laterality Blood (Blood, 01/28/2019 7:08 AM 01/29/20 19 9:54 Venous) CDT AM CDT Juvenal Plummer M.D. LAB MICROBIOLOGY - BLOOD ORD ERAOWEN Performing Organization Address City/[facility]/ZIP Code Phon e Number [facility] [address] [place] [address] [facility] HCV Ab Scrn w/Reflex to HCV PCR, Serum (01/28/2019 7:08 AM CDT) athologist Signature HCV Ab Screen, Negative Negative 01/28/2019 S 11:06 AM CDT Comment: Ordujy-hb-zipuby ratio is <1.00 . Specimen Anatomical Collection Method Collection Time Receive d Time (Source) Location / / Volume Laterality Blood (Blood, 01/28/2019 7:08 AM 01/29/20 19 9:35 Venous) CDT AM CDT Juvenal Plummer M.D. LAB MICROBIOLOGY - BLOOD ORD ERAOWEN Performing Organization Address City/[facility]/ZIP Code Phon e Number [address] [place] [address] [facility] Hepatitis B Core Total Ab (01/28/2019 7:08 AM CDT) athologist [facility] Total Ab, Negative Negative 01/28/2019 S 11:25 AM CDT Specimen Anatomical Collection Method Collection Time Receive d Time (Source) Location / / Volume Laterality Blood (Blood, 01/28/2019 7:08 AM 01/29/20 19 Venous) CDT 10:03 AM CDT Juvenal Plummer M.D. LAB MICROBIOLOGY - BLOOD ORD ERAOWEN Performing Organization Address City/State/ZIP Code Phon e Number [facility] [address] [place], [place] [address] 05 [facility] Hepatitis A IgG Ab, Serum (01/28/2019 7:08 AM CDT) athologist Signature Hepatitis A Negative 01/28/2019 IgG Ab, S 11:04 AM CDT Comment: Result indicates no past exposure or imm unity to hepatitis A infection. ?? ----REFERENCE VALUE---- Unvaccinated: Negative Vaccinated: Positive Specimen Anatomical Collection Method Collection Time Receive d Time (Source) Location / / Volume Laterality Blood (Blood, 01/28/2019 7:08 AM 01/29/20 19 Venous) CDT 10:05 AM CDT Juvenal Plummer M.D. LAB MICROBIOLOGY - BLOOD ORD ERABLES Performing Organization Address [facility]/ZIP Code Phon e Number [facility] [address] [place] [address] 05 [facility] (ABNORMAL) Troponin T, 5th Generation (01/28/2019 7:08 AM CDT) P athologist Signature Troponin T, 5th 24 (H) <=10 ng/L 01/28/2019 gen 8:00 AM CDT Specimen Anatomical Collection Method Collection Time Receive d Time (Source) Location / / Volume Laterality Blood (Blood, 01/28/2019 7:08 AM 01/29/20 19 7:15 Venous) CDT AM CDT Juvenal Plummer M.D. LAB BLOOD ADD-ON Performing Organization Address [facility] Code Phon e Number [facility] - [address] [place] [address] [facility] Prothrombin Time (PT/INR) (01/28/2019 7:08 AM CDT) P athologist Signature Prothrombin 11.4 9.4 - 12.5 01/28/2019 Time, P sec 7:39 AM CDT INR 1.0 0.9 - 1.1 01/28/2019 7:39 AM CDT Comment: ----ADDITIONAL INFORMATION---- Standard intensity warfarin therapeutic range: 2.0 to 3.0 ?? High intensity warfarin therapeutic rang e: 2.5 to 3.5 Specimen Anatomical Collection Method Collection Time Receive d Time (Source) Location / / Volume Laterality Blood (Blood, 01/28/2019 7:08 AM 01/29/20 19 7:15 Venous) CDT AM CDT Juvenal Plummer M.D. LAB BLOOD ADD-ON Performing Organization Address [facility]/ZIP Code Phon e Number [facility] - [address] [place] [address] [facility] (ABNORMAL) CBC with Differential, Blood (01/28/2019 7:08 AM CDT) Patholo gist Method Time Signature Hemoglobin 11.5 (L) 11.6 - 01/28/2019 15.0 g/dL 7:26 AM CDT Hematocrit 36.8 35.5 - 01/28/2019 44.9 % 7:26 AM CDT Erythrocytes 3.94 3.92 - 01/28/2019 5.13 7:26 AM CDT x10(12)/L MCV 93.4 78.2 - 01/28/2019 97.9 fL 7:26 AM CDT RBC Distrib Width 14.2 12.2 - 01/28/2019 16.1 % 7:26 AM CDT Platelet Count 162 157 - 371 01/28/2019 x10(9)/L 7:26 AM CDT Leukocytes 7.3 3.4 - 9.6 01/28/2019 x10(9)/L 7:26 AM CDT Neutrophils 5.24 1.56 - 01/28/2019 6.45 7:26 AM CDT x10(9)/L Lymphocytes 1.38 0.95 - 01/28/2019 3.07 7:26 AM CDT x10(9)/L Monocytes 0.55 0.26 - 01/28/2019 0.81 7:26 AM CDT x10(9)/L Eosinophils 0.07 0.03 - 01/28/2019 0.48 7:26 AM CDT x10(9)/L Basophils 0.04 0.01 - 01/28/2019 0.08 7:26 AM CDT x10(9)/L Specimen Anatomical Collection Method Collection Time Receive d Time (Source) Location / / Volume Laterality Blood (Blood, 01/28/2019 7:08 AM 01/29/20 19 7:15 Venous) CDT AM CDT Juvenal Plummer M.D. LAB BLOOD ADD-ON Performing Organization Address City/State/ZIP Code Phon e Number [facility] - [address] [place], [place] [address] [facility] Zelaya/Kid 5cc Storage, B (01/28/2019 7:07 AM CDT) Analysis Performed At [facility] logist Time Signature Storage, Red Collected DEFAULT 01/28/2019 7:14 AM CDT Storage, ACD Collected DEFAULT 01/28/2019 7:15 AM CDT Specimen Anatomical Collection Method Collection Time Receive d Time (Source) Location / / Volume Laterality Blood (Blood, 01/28/2019 7:07 AM 01/29/20 7:14 Venous) CDT AM CDT Narrative [facility] - 01/28/2019 7:15 AM CDT Specimen Information: Specimen ID: [id number] Specimen Type: Blood Specimen Collection Start Date: 01/29/20 ??7:08 AM Specimen Received Date: 01/28/2019 ??7:1 4 AM Specimen ID: [id number] Specimen Collection Start Date: 01/29/20 ??7:07 AM Specimen Received Date: 01/28/2019 ??7:1 5 AM Juvenal Plummer M.D. LAB BLOOD ADD-ON Performing Organization Address City/State/ZIP Code Phon e Number [facility] - [address] [place] [address] [facility] QuantiFERON-Tb Gold Plus, Blood (01/28/2019 7:07 AM CDT) athologist Signature QuantiFERON-TB Negative Negative 01/29/2019 Gold Plus 12:58 PM CDT Result Comment: No interferon-gamma response to M. tuber culosis antigens was detected. Infection with M. tubercul osis is unlikely. A single negative result does not exclud e infection with M. tuberculosis. In patients at high ris k for M.tuberculosis infection, a second test should be consi dered in accordance with the 2017 ATS/IDSA/CDC Clinical Prac winosme Guidelines for Diagnosis of Tuberculosis in Adults and Children [Sruthi LORENZ et. al. Clin. Infect. Dis. 2017;64(2):111-115]. The reference range for the 'TB1 Ag josselyn s Nil Result' and 'TB2 Ag minus Nil Result' is an Inte rferon-gamma level <0.35 IU/mL. TB1 Ag minus Nil Result 0.01 IU/mL 01/29/2019 12:58 PM CDT TB2 Ag minus Nil Result 0.00 IU/mL 01/29/2019 12:58 PM CDT Mitogen minus Nil Result 8.07 IU/mL 01/29/2019 12:5 8 PM CDT Nil Result 0.01 IU/mL 01/29/2019 12:58 PM CDT Specimen Anatomical Collection Method Collection Time Receive d Time (Source) Location / / Volume Laterality Blood (Blood, 01/28/2019 7:07 AM 01/29/20 19 9:50 Venous) CDT AM CDT Narrative [facility] REMI BAEZA R - 01/29/2019 12:58 PM CDT Specimen Information: Specimen ID: [id number] Specimen Type: Blood Specimen Collection Start Date: 01/29/20 ??7:07 AM Specimen Received Date: 01/28/2019 ??9:5 0 AM Specimen ID: [id number] Specimen Type: Blood Specimen Collection Start Date: 01/29/20 ??7:08 AM Specimen Received Date: 01/28/2019 ??9:5 0 AM Specimen ID: [id number] Specimen Type: Blood Specimen Collection Start Date: 01/29/20 ??7:08 AM Specimen Received Date: 01/28/2019 ??9:5 0 AM Specimen ID: [id number] Specimen Type: Blood Specimen Collection Start Date: 01/29/20 ??7:08 AM Specimen Received Date: 01/28/2019 ??9:5 0 AM Juvenal Plummer M.D. LAB MICROBIOLOGY - BLOOD ORD ERABLES Performing Organization Address City/[facility]/ZIP Code Phon e Number [address] [place] [employer], [place] [address] Syphilis Total Antibody with Reflex (01/28/2019 7:07 AM CDT) [facility] Method Time Signature Syphilis Nonreactive Nonreactive 01/28/2019 Total Ab w/ 11:44 AM CDT Reflex Comment: No serologic evidence of infection with T. pallidum (syphilis). ??Repeat testing may be cons idered in patients with suspected acute or primary syphilis in 2-4 weeks. Specimen Anatomical Collection Method Collection Time Receive d Time (Source) Location / / Volume Laterality Blood (Blood, 01/28/2019 7:07 AM 01/29/20 19 9:53 Venous) CDT AM CDT Juvenal Plummer M.D. LAB BLOOD ADD-ON Performing Organization Address City/State/ZIP Code Phon e Number [address] [place] [address] [facility] HIV-1 and HIV-2 Antigen and Antibody Routine Screen, Plasma (01/28/2019 7:07 AM CDT) athologist Signature HIV-1/-2 Ag Negative Negative 01/28/2019 and Ab Screen, 11:03 AM CDT P Comment: Negative result does not rule out HIV in fection. If exposure to HIV infection occurred <14 d ays ago, contact the laboratory to request additi on of HIV-1 RNA detection / quantification test (HIV QN). Specimen Anatomical Collection Method Collection Time Receive d Time (Source) Location / / Volume Laterality Blood (Blood, 01/28/2019 7:07 AM 01/29/20 19 Venous) CDT 10:04 AM CDT Juvenal Plummer M.D. LAB MICROBIOLOGY - BLOOD ORD ERAOWEN Performing Organization Address City/[facility] Code Phon e Number [address] [place] [address] 05 [facility] HBs Antibody, Serum (01/28/2019 7:07 AM CDT) athologist [facility] HBs Antibody, Negative 01/28/2019 S 11:06 AM CDT Comment: Patient is presumed to be not immune to infection with HBV. ----REFERENCE VALUE---- Unvaccinated: Negative Vaccinated: Positive HBs Antibody, Quantitative, S <5.0 mIU/mL 01/28/2019 11:06 AM CDT Comment: ----REFERENCE VALUE---- Unvaccinated: <5.0 Vaccinated: >=12.0 Specimen Anatomical Collection Method Collection Time Receive d Time (Source) Location / / Volume Laterality Blood (Blood, 01/28/2019 7:07 AM 01/29/20 19 9:35 Venous) CDT AM CDT Juvenal Plummer M.D. LAB MICROBIOLOGY - BLOOD ORD ERAOWEN Performing Organization Address City/State/ZIP Code Phon e Number [address] [place], [place] [address] 05 [facility] Hepatitis B Surface Antigen (01/28/2019 7:07 AM CDT) athologist [facility] HBs Antigen, S Negative Negative 01/28/2019 10:49 AM CDT Specimen Anatomical Collection Method Collection Time Receive d Time (Source) Location / / Volume Laterality Blood (Blood, 01/28/2019 7:07 AM 01/29/20 19 9:35 Venous) CDT AM CDT Juvenal Plummer M.D. LAB MICROBIOLOGY - BLOOD ORD ERABLES Performing Organization Address City/[facility]/ZIP Code Phon e Number [facility] [address] [place] [address] 05 [facility] Uric Acid (01/28/2019 7:07 AM CDT) P athologist Signature Uric Acid, S 3.9 2.7 - 6.1 01/28/2019 mg/dL 8:06 AM CDT Specimen Anatomical Collection Method Collection Time Receive d Time (Source) Location / / Volume Laterality Blood (Blood, 01/28/2019 7:07 AM 01/29/20 19 7:14 Venous) CDT AM CDT Juvenal Plummer M.D. LAB BLOOD ADD-ON Performing Organization Address City/[facility] Phon e Number [facility] - [address] [place] [address] 05 [facility] (ABNORMAL) Parathyroid Hormone (PTH) (01/28/2019 7:07 AM CDT) Analysis Performed At Patho logist Time Signature Parathyroid 233 (H) 15 - 65 01/28/2019 Hormone (PTH), S pg/mL 8:00 AM CDT Specimen Anatomical Collection Method Collection Time Receive d Time (Source) Location / / Volume Laterality Blood (Blood, 01/28/2019 7:07 AM 01/29/20 19 7:14 Venous) CDT AM CDT Juvenal Plummer M.D. LAB BLOOD ADD-ON Performing Organization Address City/[facility]/ZIP Code Phon e Number [facility] - [address] [place] [address] 05 [facility] S-TSH (Thyroid-Stimulating Hormone - Sensitive) (01/28/2019 7:07 AM CDT) P athologist Signature TSH, Sensitive 0.4 0.3 - 4.2 01/28/2019 mIU/L 8:06 AM CDT Specimen Anatomical Collection Method Collection Time Receive d Time (Source) Location / / Volume Laterality Blood (Blood, 01/28/2019 7:07 AM 01/29/20 19 7:14 Venous) CDT AM CDT Juvenal Plummer M.D. LAB BLOOD ADD-ON Performing Organization Address City/[facility] Phon e Number [facility] - [address] [place] [address] [facility] HLA Class II SAB Antibody Screen (01/28/2019 7:07 AM CDT) [facility] Method Time Signature Class II SAB Positive Not Applicable 01/29/2019 Overall 12:48 PM CDT Result Class II SAB 37 01/29/2019 cPRA 12:48 PM CDT Comment: ----ADDITIONAL INFORMATION---- This PRA is a [facility] calculated PRA. PRA is based on the antigen frequency of the Tissue Typing patient a nd donor population. ??PRA reflects all antibodie s with a normalized value (MFI) above 300. SAB DRB1 Specificity NONE 01/29/2019 12:48 PM CDT SAB [id number] Specificity NONE 01/29/2019 12:48 PM CDT SAB DQB1 Specificity see below 01/29/2019 12:48 PM CDT Comment: 2[84304], 2[364] Format: Serologic equivalent/abbreviated specificity [Normalized Value] shown in decreasing o rder. Note: A serologic equivalent/abbreviated specifi city displayed multiple times could indicate different alleles. SAB DPB1 Specificity NONE 01/29/2019 12:48 PM CDT Comment: ----ADDITIONAL INFORMATION---- Method: [facility] Performing Laboratory CLIA# [id number] Specimen Anatomical Collection Method Collection Time Receive d Time (Source) Location / / Volume Laterality Blood (Blood, 01/28/2019 7:07 AM 01/29/20 19 7:56 Venous) CDT AM CDT Juvenal Plummer M.D. LAB HLA ORDERABLES Performing Organization Address City/[facility] Phon e Number [facility] - [address] [place] [address] [facility] HLA Class I SAB Antibody Screen (01/28/2019 7:07 AM CDT) [facility] Method Time Signature Class I SAB Positive Not Applicable 01/29/2019 Overall 12:30 PM CDT Result Class I SAB 79 01/29/2019 cPRA 12:30 PM CDT Comment: ----ADDITIONAL INFORMATION---- This PRA is a [facility] calculated PRA. PRA is based on the antigen frequency of the Tissue Typing patient a nd donor population. ??PRA reflects all antibodie s with a normalized value (MFI) above 300. SAB A Specificity see below 01/29/2019 12:30 PM CD T Comment: 32[4276], 31[2938], 25[2050], 23[1912], 24[1545], 24[1518], 30[1362], 30[1017] Format: Serologic equivalent/abbreviated specificity [Normalized Value] shown in decreasing o rder. Note: A serologic equivalent/abbreviated specifi city displayed multiple times could indicate different alleles. SAB B Specificity see below 01/29/2019 12:30 PM CD T Comment: 51[11088], 51[5972], 49[4494], 77[4187], 52[3984], 75[3635], 63[3478], 38[3277], 78[3188], 59[3141], 53[2588], 57[2446], 58[2378], 57[2282], 71[970], 27[801], 75 [791], 13[723], 37[716], 44[605], 44[549], 47[338], 13[3 14] Format: Serologic equivalent/abbreviated specificity [Normalized Value] shown in decreasing o rder. Note: A serologic equivalent/abbreviated specifi city displayed multiple times could indicate different alleles. SAB C Specificity NONE 01/29/2019 12:30 PM CD T Comment: ----ADDITIONAL INFORMATION---- Method: [facility] Performing Laboratory CLIA# [id number] Specimen Anatomical Collection Method Collection Time Receive d Time (Source) Location / / Volume Laterality Blood (Blood, 01/28/2019 7:07 AM 01/29/20 7:56 Venous) CDT AM CDT Juvenal Plummer M.D. LAB HLA ORDERABLES Performing Organization Address City/State/ZIP Code Phon e Number [facility] - [address] [place], [place] [address] [facility] Phosphorus Inorganic (01/28/2019 7:07 AM CDT) athologist Signature Phosphorus 4.2 2.5 - 4.5 01/28/2019 (Inorganic), S mg/dL 8:06 AM CDT Specimen Anatomical Collection Method Collection Time Receive d Time (Source) Location / / Volume Laterality Blood (Blood, 01/28/2019 7:07 AM 01/29/20 19 7:14 Venous) CDT AM CDT Juvenal Plummer M.D. LAB BLOOD ADD-ON Performing Organization Address City/[facility] Phon e Number [facility] - [address] (ABNORMAL) Lipid Panel (01/28/2019 7:07 AM CDT) athologist Signature Cholesterol, 156 mg/dL 01/28/2019 Total 8:06 AM CDT Comment: ----REFERENCE VALUE---- Desirable: < 200 Borderline high: 200 - 239 High: > or = 240 Triglycerides 144 mg/dL 01/28/2019 8:06 AM CDT Comment: ----REFERENCE VALUE---- Normal: <150 Borderline high: 150-199 High: 200-499 Very high: > or =500 Cholesterol, HDL, S 48 (L) >=50 mg/dL 01/28/2019 8:06 AM CDT Calculated LDL 79 mg/dL 01/28/2019 8:06 AM CDT Comment: ----REFERENCE VALUE---- Desirable: <100 Above Desirable: 100-129 Borderline high: 130-159 High: 160-189 Very high: > or =190 Cholesterol, Non-HDL, Calculated 108 mg/dL 019 8:06 AM CDT Comment: ----REFERENCE VALUE---- Desirable: <130 Above Desirable: 130-159 Borderline high: 160-189 High: 190-219 Very high: > or =220 Specimen Anatomical Collection Method Collection Time Receive d Time (Source) Location / / Volume Laterality Blood (Blood, 01/28/2019 7:07 AM 01/29/20 19 7:14 Venous) CDT AM CDT Juvenal Plummer M.D. LAB BLOOD ADD-ON Performing Organization Address City/[facility] Code Phon e Number [facility] - [address] (ABNORMAL) Comprehensive Metabolic Panel (01/28/2019 7:07 AM CDT) Analysis Performed At Patho logist Time Signature Potassium, S 5.4 (H) 3.6 - 5.2 01/28/2019 mmol/L 8:06 AM CDT Sodium, S 137 135 - 145 01/28/2019 mmol/L 8:06 AM CDT Chloride, S 95 (L) 98 - 107 01/28/2019 mmol/L 8:06 AM CDT Bicarbonate, S 27 22 - 29 01/28/2019 mmol/L 8:06 AM CDT Anion Gap 15 7 - 15 01/28/2019 8:06 AM CDT BUN (Blood Urea 40 (H) 6 - 21 01/28/2019 Nitrogen), S mg/dL 8:06 AM CDT Creatinine 7.47 (H) 0.59 - 01/28/2019 1.04 mg/dL 8:06 AM CDT eGFR-Non <15 (L) >=60 01/28/2019 Black/ mL/min/BSA 8:06 AM CDT [place] Comment: ----ADDITIONAL INFORMATION---- Estimated GFR calculated using the 2009 CKD_EPI creatinine equation. eGFR-Black/ <15 (L) >=60 mL/min/BSA 2018 8:06 AM CDT Comment: ----ADDITIONAL INFORMATION---- Estimated GFR calculated using the 2009 CKD_EPI creatinine equation. Calcium, Total, S 9.9 8.6 - 10.0 mg/dL 01/28/2019 8:06 AM CDT Glucose, S 120 70 - 140 mg/dL 01/28/2019 8:06 AM CDT Protein, Total, S 6.6 6.3 - 7.9 g/dL 01/28/2019 8:06 A M CDT Albumin, S 4.2 3.5 - 5.0 g/dL 01/28/2019 8:06 AM CDT Aspartate Aminotransferase 17 8 - 43 U/L 01/28/2019 8 :06 AM CDT (AST), S Alkaline Phosphatase, S 113 (H) 35 - 104 U/L 01/28/2019 8: 06 AM CDT Alanine Aminotransferase (ALT), 9 7 - 45 U/L 019 8:18 AM CDT S Bilirubin, Total, S 0.3 <=1.2 mg/dL 01/28/2019 8:06 AM CDT Specimen Anatomical Collection Method Collection Time Receive d Time (Source) Location / / Volume Laterality Blood (Blood, 01/28/2019 7:07 AM 01/29/20 19 7:14 Venous) CDT AM CDT Juvenal Plummer M.D. LAB BLOOD ADD-ON Performing Organization Address City/State/ZIP Code Phon e Number [facility] - [address] [place] [address] 05 [facility] documented in this encounter Visit Diagnoses Diagnosis Chronic Kidney Disease Stage 5 GFR Less Than 15 Dialysis Dependent (HCC) - Primary Pretransplant Recipient Evaluation Exam Fatigue Failure Renal End Stage (HCC) Hypertension Essential Primary Pretransplant Recipient Evaluation Exam Chronic Kidney Disease Stage 5 GFR Less Than 15 Dialysis Dependent (HCC) Hypertension Essential Primary Pretransplant Recipient Evaluation Exam Chronic Kidney Disease Stage 5 GFR Less Than 15 Dialysis Dependent (HCC) documented in this encounter Additional Health Concerns Assessment Noted Time PHQ-9 Depression Total Score: 3 09/13/2017 7:47 AM BRAND COORDINATOR documented as of this encounter
--- OUTSIDE RECORDS SUMMARY | 2022-05-25 13:26 | XMS_ITS | Encounter Summary ---
:1960 Author Organization [facility] Address [address] [place] [id number] Care Team Providers Name Role Phone Unavailable Primary Care Provider Unavailable Reason for Visit Transplant (Routine) - Closed Specialty Diagnoses / Procedures Referred By Contact Refer red To Contact Transplant Surgery / Diagnoses Pretransplant Recipient Evaluation Exam Chronic Kidney Disease Stage 5 GFR Less Than 15 Dialysis Dependent (HCC) Juvenal Plummer, [facility] Transplant [place] [address] [place] [address] Referral ID Status Reason Start Date Expiration Date Visits Requ ested Visits Authorized [id number] Closed 01/01/2019 01/01/2020 1 1 Encounter Details Date Type Department Care Team Description 01/28/2019 Comprehensive Visit Juvenal Gonzalez M.D. 200 [place] [address] Depression Major One Episode Full Remiss ion (HCC) (Primary Dx); Debbie Mccormick M.D. [address] [place] [phone] Pretransplant Recipient Evaluation Exam; Transplantation and Chronic Kidney Disease Stage 5 GFR Less Than 15 Dialysis Dependent (HCC); Clinical Regeneration Dania ne Dependence Cigarettes in [place], [place] [address] [place] [phone] Social History Tobacco Use Types [...] How often do you attend alevism or voodoo 1 to 4 times per [...] Sign Reading Time Taken Comments Blood Pressure 107/60 01/28/2019 10:39 AM CDT Pulse 73 01/28/2019 10:39 AM CDT Temperature - - Respiratory Rate - - Oxygen Saturation - - Inhaled Oxygen Concentration - - Weight - - Height - - Body Mass Index - - documented in this encounter Progress Notes Debbie Gutierrez M.D. - 01/28/2019 10:00 AM CDT History of Present Illness: I interviewed the patient the time of this evaluation and reviewed the [facility] record. I saw alex for a full evaluation in August of 2017. Since that time she reports that she has been doing well. She is still smoking but otherwise feels her mood is stable and her mother is now in a fci which has made for a less stressful situation for her. She helps her father. She continues to go to dialysis. She denies depression or loss of interest. She is on no psychiatric medications currently. Her sleep is variable depending on dialysis. Her appetite is good. Her energy level is good on nondialysis days. She denies suicidal ideation. She denies excessive anxiety. She has a supportive goodfriends and her father and has a friend named Shira Madera who could be here with her at the time of transplant. She is not using alcohol or street drugs. She has a daughter who lives in [facility] who has 2 children and is emotionally supportive ofher but because of the logistics of her activities is unable to provide much support otherwise. Rating Scales: PHQ-9 Total Score (max 27): 3 (01/28/19 0930) ABILIO-7 Total Score (max 21): 3 (01/28/19 0931) Audit Score: 1 (01/28/19 0932) Current Outpatient Medications Medication Sig Dispense Refill ??? B complex 66-bggjn-F-biot-zinc (DIALYVITE) [id number] sz-ol-ans-mg tablet Take 1 tablet by mouth daily. ??? ciprofloxacin (CIPRO) 250 mg tablet Take 1 tablet by mouth evening prior to stent exchange, 1 tablet evening of, then twice a day until gone. 6 tablet 0 ??? gabapentin (NEURONTIN) 100 mg capsule Take 2 capsules (200 mg total) by mouth 2 (two) times a day. 120 capsule 11 ??? hydrocortisone (for_HYTONE) 2.5 % cream Apply 1 application topically daily as needed. ??? lidocaine-prilocaine (EMLA) 2.5-2.5 % cream Apply 1 application topically as directed. 30 g 11 ??? mupirocin (BACTROBAN) 2 % ointment Apply 1 application topically 3 (three) times a day. For 14 days 22 g 1 ??? mycophenolate (CELLCEPT) 250 mg capsule TAKE 2 CAPSULES BY MOUTH TWICE DAILY 540 capsule 0 ??? nebivolol (BYSTOLIC) 10 mg tablet Take 1 tablet (10 mg total) by mouth daily. 90 tablet 3 ??? predniSONE (DELTASONE) 5 mg tablet Take 1 tablet (5 mg total) by mouth daily. 90 tablet 3 ??? rosuvastatin (CRESTOR) 5 mg tablet Take 1 tablet (5 mg total) by mouth daily. 90 tablet 3 ??? sevelamer (RENVELA) 800 mg tablet Take 1 tablet (800 mg total) by mouth 3 (three) times a day with meals. 270 tablet 3 ??? tacrolimus (PROGRAF) 1 mg capsule Take 2 capsules (2 mg total) by mouth 2 (two) times a day. 360capsule 3 ??? tamsulosin (FLOMAX) 0.4 mg 24 hr capsule Take 1 capsule (0.4 mg total) by mouth daily as needed (spasm pain assoc with stent). 30 capsule 2 No current facility-administered medications for this visit. [...] treatment. Suicidal ideation or Assaultive ideation: None Assessment/Plan: DSM 5 Diagnosis #1 Nicotine dependence #2 Major depression in remission Plan: She appears to be doing well and has no active psychiatric concerns other than continuing to smoke. We did discuss last year they availability of the nicotine dependence Center should she be interestedin it. Overall I think she is reasonable candidate for transplantation with a Psychosocial Assessment of Candidates for Transplantation (PACT) score of 2. documented in this encounter Plan of Treatment Upcoming Encounters Date Type Specialty Care Team Description 06/01/2022 Telemedicine Pharmacy An Nicholas APRN, C.N.P., D.N.P., M.S.N. [address] [place] [phone] (Nicolas wen) 07/31/2022 Lab Laboratory Medicine Tony Rubalcava M. B., ChBurke, MDebra [address] [place] [phone] (Nicolas wen) 07/31/2022 Lab Laboratory Medicine Tony Rubalcava M. B., Sydnie, Mukund [address] [place] [phone] (Nicolas wen) 07/31/2022 Office Visit Transplant Tony Rubalcava M.B., Sydnie, Mukund [address] [place] [phone] (Nicolas wen) 07/31/2022 Appointment Radiology Tony Rubalcava M.B., Sydnie, Mukund [address] [place] [phone] (Nicolas wen) 08/01/2022 Office Visit Transplant Tony Rubalcava M.B., Sydnie, Mukund [address] [place] [phone] (Nicolas wen) 08/01/2022 Clinical Support Transplant Tony Rubalcava M.B., Sydnie, MDebra [address] [place] [phone] (Nicolas wen) documented as of this encounter Visit Diagnoses Diagnosis Depression Major One Episode Full Remiss ion (HCC) - Primary Pretransplant Recipient Evaluation Exam Chronic Kidney Disease Stage 5 GFR Less Than 15 Dialysis Dependent (HCC) Nicotine Dependence Cigarettes documented in this encounter Additional Health Concerns Assessment Noted Time PHQ-9 Depression Total Score: 3 01/28/2019 9:30 AM CDT documented as of this encounter
--- OUTSIDE RECORDS SUMMARY | 2022-05-25 13:26 | XMS_ITS | Encounter Summary ---
:1960 Author Organization [facility] Address [address] [place] [address] Care Team Providers Name Role Phone Unavailable Primary Care Provider Unavailable Encounter Details Date Type Department Care Team Description 01/28/2019 Hospital Department of TextorJuvenal Hypertensio n Essential Primary ; Encounter Cardiovascular C, MDaviDDavi Pretransplant Recipient Evaluation Exam; Diseases in [place] [address] [address] Chronic Kidney Disease Stage 5 GFR Less Than 15 Dialysis Dependent (HCC) [place], [place] [address] [facility] [address] [place], [place] [phone] (Work) [phone] Social History Tobacco Use Types Packs/Day Years [...] How often do you attend sikhism or mandaeism 1 to 4 times per [...] 1 tablet by 0 06/13/2017 05/31/20 19 27-ntzds-K-biot-zinc mouth daily. (DIALYVITE) [id number] gl-cu-jye-mg tablet ciprofloxacin (CIPRO) Take 1 tablet by [...] Nicholas APRN C.N.P., D.N.P., M.S.N. [address] [place] [phone] ( [email or web address]) 07/31/2022 Lab Laboratory Medicine Tony Rubalcava M. B., Ch.B., M.D. [address] [place] [phone] ( rk) 07/31/2022 Lab Laboratory Medicine Tony Rubalcava M. B., Ch.B., M.D. [address] [place] [phone] ( behzad) 07/31/2022 Office Visit Transplant Tony Rubalcava M.B., Ch.B., M.D. [address] [place] [phone] ( rk) 07/31/2022 Appointment Radiology Tony Rubalcava M.B., [place] [address] [place], [place] [phone] (Wo rk) 08/01/2022 Office Visit Transplant Tony Rubalcava M.B., [place] [address] [place], [place] [phone] (Wo rk) 08/01/2022 Clinical Support Transplant Tony Rubalcava M.B., [place] [address] [place] [phone] (Wo rk) documented as of this encounter Procedures Procedure Name Priority Date/Time Associated Diagnosis Comme nts ECHO STRESS 2D WITH Routine 01/28/2019 3:58 PM Hypertension Re sults for this COLOR, DOPPLER AND CDT Essential Radha yoan procedure are in CONTRAST Pretransplant the results Recipient Evaluation section . Exam Chronic Kidney Disease Stage 5 GFR Less Than 15 Dialysis Dependent (HCC) documented in this encounter Results ECHO STRESS 2D WITH COLOR, DOPPLER AND CONTRAST (01/28/2019 3:58 PM CDT) [employer] gist Method Time Signature Ejection Fraction 60 MC [...] Result Juvenal Plummer M.D. CV ECHO PROCEDURES documented in this encounter Visit Diagnoses Diagnosis Hypertension Essential Primary Pretransplant Recipient Evaluation Exam Chronic Kidney Disease Stage 5 GFR Less Than 15 Dialysis Dependent (HCC) documented in this encounter Administered Medications Inactive Administered Medications - up to 3 most recent administrations Medication Order MAR Action Action Date Dose Rate Site atropine injection 2 mg Given 01/28/2019 3:45 PM CDT 2 mg 2 mg, intravenous, As needed, See protocol, Starting on Sun01/28/19 at 1559 DOBUTamine 1,000 mcg/mL in D5W 250 mL New Bag 01/28/2019 3:45 PM C DT 39 mg infusion 1-100 mg (DOBUTREX) 1-100 mg, intravenous, Once, On 01/28/19 at 1600, For 1 dose, Infusion rate: 5-40 mcg/kg/min - see protocol. Premix ba mg in 250 mL perflutren lipid microspheres injection Given 01/28/2019 3:45 PM CDT 4 mL (DEFINITY) intravenous, As needed, contrast, Starting on Sun01/28/19 at 1559, See protocol documented in this encounter Additional Health Concerns Assessment Noted Time PHQ-9 Depression Total Score: 3 01/28/2019 9:30 AM CDT documented as of this encounter
--- OUTSIDE RECORDS SUMMARY | 2022-05-25 13:26 | XMS_ITS | Encounter Summary ---
:1960 Author Organization [facility] Address [address] [place] [address] Care Team Providers Name Role Phone Unavailable Primary Care Provider Unavailable Reason for Visit Reason Comments Transplant Recipient Evaluation Re-Evaluation Appointment Request (Routine) - Closed Specialty Diagnoses / Procedures Referred By Contact Refer red To Contact Transplant Referral ID Status Reason Start Date Expiration Date Visits Requ ested Visits Authorized [id number] Closed 12/19/2018 12/19/2019 2 1 Encounter Details Date Type Department Care Team Description 01/28/2019 Office Visit Juvenal Gonzalez Pre transplant Recipient Evaluation Exam (Primary Dx); Keanu for C MDebra Complication Kidney Transplant (HCC); Transplantation and [address] Complication Dialysis Fistula Subsequent ; Clinical Regeneration in [place], [place] Tr ansplant Renal (HCC) [place], [place] [address] [address] [facility] [phone] [place], [place] [id number] (Work) [phone] Social History Tobacco Use Types Packs/Day Years [...] How often do you attend jainism or caodaism 1 to 4 times per [...] Pressure - - Pulse - - Temperature 35.4 ??C (95.7 ??F) 01/28/2019 1:06 PM CDT Respiratory Rate - - Oxygen Saturation - - Inhaled Oxygen Concentration - - Weight 100 kg (221 lb 5.5 oz) 01/28/2019 1:06 PM CDT Height 163.1 cm (5' 4.21) 01/28/2019 1:06 PM CDT Body Mass Index 37.74 01/28/2019 1:06 PM CDT documented in this encounter Consult Notes Juvenal Plummer M.D. - 01/28/2019 1:30 PM CDT SUBJECTIVE REASON FOR CONSULT 1. End-stage renal disease, unclear etiology. 2. donor renal allograft, 2008, [facility], failed 2017. 3. 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 4. Transplant re-evaluation. HISTORY OF PRESENT ILLNESS Ms. Wray is a 58-year-old woman with a complex and circuitous past medical history. She is a somewhat vague historian and it is difficult to identify some of the details of her history. In brief, she indicates she was quite healthy as a young woman and had an uneventful at age 19 with no hypertension or known kidney disease. She had been a long-term smoker through her 20s and 30s and developed an episode in approximately 1999, at the age of 44, with moderate anemia, azotemia, and severe hypertension. She was treated during that interval. Her renal dysfunction was attributed to hypertension. A biopsy was performed and was considered too far gone. She was treated temporarily with prednisone without major benefit. She underwent dialytic therapy for 5 years, primarily with peritonealdialysis, before undergoing a donor renal allograft at [facility] in 2007. Induction included basiliximab therapy and immunosuppression with tacrolimus, prednisone, and mycophenolate. According to Dr. Ruiz's note of 2018, she had episodes of ureteropelvic obstruction in her renal allograft. She developed episodes of acute kidney injury on several occasions, each of which was treatedwith temporary ureteral stent placement. These did lead to some improved function and she has had cyclic stent placements since 2014. I note that she continues to have gradual allograft failure and rest arted dialysis in 2016. She was evaluated and accepted for transplant in September 2017. Dobutamine stress echocardiograms have been negative. She has not had active cardiovascular disease, but continues to smoke. She has been maintained on basal immunosuppression throughout. She does have modest but de finite aloe sensitization. She continues to have 3 monthly stent replacements despite being essentially aneuric. CURRENT MEDICATIONS Current Outpatient Medications Medication Sig Dispense Refill ??? B complex 08-dhbgn-F-biot-zinc (DIALYVITE) [id number] gr-oa-nnj-mg tablet Take 1 tablet by mouth daily. [...] topically as directed. 30 g 11 ??? mycophenolate (CELLCEPT) 250 mg capsule [...] pain assoc with stent). 30 capsule 2 ??? mupirocin (BACTROBAN) 2 % ointment Apply 1 application topically 3 (three) times a day. For 14 days (Patient not taking: Reported on 01/28/2019 ) 22 g 1 ??? rosuvastatin (CRESTOR) 5 mg tablet Take 1 tablet (5 mg total) by mouth daily. (Patient not taking: Reported on 01/28/2019 ) 90 tablet 3 No current facility-administered medications for this visit. . ALLERGIES/CONTRAINDICATIONS As noted. REVIEW OF SYSTEMS Central Nervous System: Negative for syncope or focal neurologic deficits. Blood pressures have beennormal on dialysis. Cardiorespiratory: She denies being short of breath or having underlying pulmonary disease. Cardiac symptoms have been minimal. She has not had arrhythmias or known circulatory congestion. Gastrointestinal : Her appetite has been too good. Her weight has been continued above optimal ranges. Genitourinary : She makes no urine output. She has not had hematuria or major proteinuria to her knowledge. Musculoskeletal : She had a single episode that she thinks might be gout. SURGICAL HISTORY Previous transplant. Hysterectomy. Fistula placement with revisions. SOCIAL HISTORY She is no longer working but caring for her elderly parents in [place], [place]. Her father is 80. She is no longer . She has no regular exercise or activity regimen. Her family history is vague because she is adopted. Her child is in generally good health. OBJECTIVE PHYSICAL EXAMINATION General : She appears alert and well. Vital Signs: Blood pressures by the BpTRU of 118/84 with a pulse of 68. ENT : Extraocular movements are full. Minimal retinopathy. Tympanic membranes are clear. She does have some facial skin wrinkling consistent with nicotine use. Lungs : Her chest is clear to percussion and auscultation. I can detect no bruits at this time. Abdomen : Soft. She is obese. Pulses: The dorsalis pedis, posterior tibial, radial, and carotid sites are present. The rest of the examination unchanged. No pelvic examination was done on this occasion. DIAGNOSTICS Her laboratory studies demonstrate a chest x-ray which has a normal cardiac silhouette. She has a remote previous left rib fracture. She does have calcification in the aorta. We did review her CT scan from 2016. I can see no abnormalities of her lower [place] kidneys. 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 Her laboratory studies demonstrate adequate nutrition. Her troponin and lipid levels are generally satisfactory. ASSESSMENT / PLAN #1 End-stage renal disease, question etiology I cannot exclude and underlying primary renal disease or renovascular occlusive disease. It is somewhat moot at this point, although I cannot exclude an underlying IgA nephropathy developing in her 40s. 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 She is tolerating hemodialysis at the moment. I can see no fundamental reason not to keepher active on the transplant list at this time. The UPJ obstruction related to her previous allograft is a bit moot. I will review this with my colleagues but would recommend removal of her stent and she may benefit from having no further hardware in place should retransplantation occur. I can see no reason to continue stent placements. Juvenal Plummer M.D. CT CT Job ID: [id number] documented in this encounter Plan of Treatment Upcoming Encounters Date Type Specialty Care Team Description 06/01/2022 Telemedicine Pharmacy An Nicholas APRN, C.N.P., D.N.P., M.S.N. [address] [place] [address] [phone] (Wo rk) 07/31/2022 Lab Laboratory Medicine Tony Rubalcava M. B., Sydnie, MDebra [address] [place] [address] [phone] (Wo rk) 07/31/2022 Lab Laboratory Medicine Tony Rubalcava M. B., Sydnie, MDebra [address] [place] [address] [phone] (Wo rk) 07/31/2022 Office Visit Transplant Tony Rubalcava M.B., Sydnie, MDebra [address] [place] [address] [phone] (Wo rk) 07/31/2022 Appointment Radiology Tony Rubalcava M.B., Sydnie, MDebra [address] [place] [address] [phone] (Wo rk) 08/01/2022 Office Visit Transplant Tony Rubalcava M.B., Sydnie, MDebra [address] [place] [address] [phone] (Wo rk) 08/01/2022 Clinical Support Transplant Tony Rubalcava M.B., Sydnie, MDaviDDavi [address] [place] [address] [phone] (Nicolas wen) documented as of this encounter Visit Diagnoses Diagnosis Pretransplant Recipient Evaluation Exam - Primary Complication Kidney Transplant (HCC) Complication Dialysis Fistula Subsequent Transplant Renal (HCC) documented in this encounter Additional Health Concerns Assessment Noted Time PHQ-9 Depression Total Score: 3 01/28/2019 9:30 AM CDT documented as of this encounter
--- OUTSIDE RECORDS SUMMARY | 2022-05-25 13:26 | XMS_ITS | Encounter Summary ---
:1960 Author Organization [facility] Address [address] [place] [address] Care Team Providers Name Role Phone Unavailable Primary Care Provider Unavailable Encounter Details Date Type Department Care Team Description 12/26/2018 Surgery Outpatient Procedure Geraldo Spear URETERAL STENT. Center in Catrachita Hernandez M.D. [address] [place] [phone] Social History Tobacco Use Types Packs/Day Years [...] How often do you attend mormon or methodist 1 to 4 times per [...] [place] [facility] ([facility] Sex Assigned at Date Recorded Female 12/23/2021 4:18 AM CDT documented as of this encounter Last Filed Vital Signs Vital Sign Reading Time Taken Comments Blood Pressure 107/69 12/26/2018 10:02 AM CDT Pulse 70 12/26/2018 10:15 AM CDT Temperature 36.8 ??C (98.2 ??F) 12/26/2018 10:02 AM CDT Respiratory Rate 14 12/26/2018 10:15 AM CDT Oxygen Saturation 96% 12/26/2018 10:15 AM CDT Inhaled Oxygen Concentration - - Weight 98 kg (216 lb 0.8 oz) 12/26/2018 10:02 AM CDT Height 165.1 cm (5' 5) 12/26/2018 10:02 AM CDT Body Mass Index 35.95 12/26/2018 10:02 AM CDT documented in this encounter Discharge Instructions AttachmentsThe following attachments cannot be sent through Care Everywhere. About Your Ureteroscopy (Yi)documented in this encounter Medications at Time of Discharge Medication Sig Dispensed Refills Start Date End Date hydrocortisone Apply 1 application 0 09/18/2017 (for_HYTONE) 2.5 % topically daily as cream needed (Eczema). gabapentin (NEURONTIN) Take 2 capsules (200 120 capsule 11 12/08/2019 100 mg capsule mg total) by mouth 2 (two) times a day. mycophenolate TAKE 2 CAPSULES BY 540 capsule 0 05/30/2018 (CELLCEPT) 250 mg MOUTH TWICE DAILY capsule nebivolol (BYSTOLIC) 10 Take 1 tablet (10 mg 90 tablet 3 09/02/2019 mg tabletIndications: total) by mouth Transplant Renal (HCC) daily. predniSONE (DELTASONE) Take 1 tablet (5 mg 90 tablet 3 03/201807/10/2019 5 mg tablet total) by mouth daily. rosuvastatin (CRESTOR) Take 1 tablet (5 mg 60 tablet 0 03/201912/30/2018 5 mg tablet total) by mouth daily. tacrolimus (PROGRAF) 1 Take 2 capsules (2 360 capsule 3 03/201812/08/2019 mg capsule mg total) by mouth 2 (two) times a day. B complex Take 1 tablet by 0 06/13/2017 05/31/20 08-jgflb-M-biot-zinc mouth daily. (DIALYVITE) [phone] oi-ap-blv-mg tablet ciprofloxacin (CIPRO) Take 1 tablet by 6 tablet 0 09/03/19 19 05/07/2019 250 mg tablet mouth evening prior to stent exchange, 1 tablet evening of, then twice a day until gone. lidocaine-prilocaine Apply 1 application 30 g 11 201709/15/2019 (EMLA) 2.5-2.5 % cream topically as directed. mupirocin (BACTROBAN) 2 Apply 1 application 22 g 1 11/201704/25/2019 % ointmentIndications: topically 3 (three) Paronychia Finger Left times a day. For 14 days sevelamer (RENVELA) 800 Take 1 tablet (800 270 tablet 3 06/2107/17/2019 mg tablet mg total) by mouth 3 (three) times a day with meals. tamsulosin (FLOMAX) 0.4 Take 1 capsule (0.4 30 capsule 2 04/25/2019 mg 24 hr capsule mg total) by mouth daily as needed (spasm pain assoc with stent). documented as of this encounter OR Notes Op Note - Raman Way M.B., B.Ch., B.A.O. - 12/26/2018 11:58 AM CDT FULL OP NOTE Procedure(s) (LRB): EXCHANGE URETERAL STENT. (Right) RETROGRADE PYELOGRAM (Right) Surgeon(s) and Role: * Geraldo Spear M.D. - Primary * Raman Way M.B., B.Ch., B.A.O. - Mule Driver * Shanon Benjamin M.D. - Other Rod Straightener Anesthesia Type: Monitored anesthesia care Pre-Operative Diagnosis: Right ureteral obstruction, right ureteral stent indwelling. Post-Operative Diagnosis: Same as pre-operative diagnosis Findings: 1. Cystourethroscopy revealed normal urethra, no tumors, lesions, strictures. 2. Inspection of bladder revealed inflammatory changes, no evidence of any tumors, lesions, diverticuli. 3. The stent was noted to be emanating from the right ureteral orifice which was located at the domeof the bladder. Consistent with renal transplant history. 4. Right retrograde pyelogram demonstrated mild hydronephrosis 5. Exchange of 8 x 20 stent performed Complications: None Description of Procedure: After obtaining appropriate informed consent patient was brought to [facility]. Patient was placed under mac sedation, was positioned in the dorsal lithotomy position. Patient was prepped and draped in the usual sterile fashion. After appropriate time-out identifying patient ID, laterality, allergies, antibiotics given we proceed with a cystourethroscopy which revealed a normal urethra without evidence of tumors, strictures, lesions. Upon entry into the bladder there was some inflammatory changes, but no obvious tumor, lesions, strictures. Within noted this stent to be emanatingfrom a ureteral orifice which is at the right dome of the bladder consistent with history of right renal transplant.There was no encrustation. A 0.035 sensor tip guidewire was then advanced alongside the stent until the wire was seen in the kidney pelvis. We then proceeded to grasp the stent and externalize the stent to the meatus and removed. We then backloaded our cystoscope over the wire and then a dvanced the tiger tail into the right ureter. Right retrograde pyelogram revealed mild hydronephrosis. The tiger tail was then removed and we then advanced an 8 x 20 stent over the wire to the level ofthe right renal pelvis and verified under fluoroscopy. We then achieved a good proximal curl as verified by fluoroscopy. We then achieved a good distal curl as verified by direct vision and fluoroscopy. The patient tolerated the procedure well and was transferred to the PACU in stable condition. ?? Specimens * No specimens in log * Drains * No drains in log * Estimated Blood Loss 0 mL Implants Implant Name Type Inv. Item Serial No. Order Entry Technician Lot No. LRB No. Used Action STENT INLAY 8FR X 20CM - [place] [id number] Ureteral Stent C.R.Bard 1 Explanted STNT URET INL 8FX20 - [id number] Ureteral Stent STNT URET INL 8FX20 C.R.Bard [id number] Right 1 Implanted Melissa Menjivar., B.Ch., B.A.O. documented in this encounter Plan of Treatment Upcoming Encounters Date Type Specialty Care Team Description 06/01/2022 Telemedicine Pharmacy An Nicholas APRN C.N.P., D.N.P., M.S.N. [address] [place] [address] [phone] ( rk) 07/31/2022 Lab Laboratory Medicine Tony Rubalcava M. B., Sydnie, Mukund [address] [place] [phone] (Wo rk) 07/31/2022 Lab Laboratory Medicine Tony Rubalcava M. B., Sydnie, MDebra [address] [place] [phone] (Wo rk) 07/31/2022 Office Visit Transplant Tony Rubalacva M.B., ChBurke, MDebra [address] [place] [address] [phone] (Wo rk) 07/31/2022 Appointment Radiology Tony Rubalcava M.B., ChBurke, MDebra [address] [place] [address] [phone] ( behzad) 08/01/2022 Office Visit Transplant Tony Rubalcava M.B., ChBurke, MDebra [address] [place] [address] [phone] (Wo rk) 08/01/2022 Clinical Support Transplant Benteli, Melissa Rosado., Shashi Otoole. [address] [place] [address] [phone] (Wo rk) documented as of this encounter Procedures Procedure Name Priority Date/Time Associated Comments Diagnosis FL FLUORO LESS RAD - Routine 12/26/2018 1:02 Results f or this THAN 1 HOUR (most inpatients PM CDT procedure a re in and all the results outpatients) section. RETROGRADE 12/26/2018 11:18 Ureteral Stent PYELOGRAM AM CDT Exchange Special Needs Will consent morning of surg lily per Dr. Spear. EXCHANGE URETERAL STENT 12/26/2018 11:18 AM CDT Ureter al Stent Exchange Special Needs Will consent morning of surg lily per Dr. Spear. documented in this encounter Results FL Fluoro Less Than 1 Hour (12/26/2018 1:02 PM CDT) Specimen (Source) Anatomical Location Collection Method / Collectio n Time Received Time / Laterality Volume Narrative [id number] - 12/26/2018 1:02 PM CDT This exam does not require a radiologist review or interpretation. Please refer to the patient's medical record on this date for clinical details. López WESTFALL FLUOROSCOPY PROCEDURES Performing Organization Address City/State/ZIP Code Phon e Number [id number] NA documented in this encounter Visit Diagnoses Diagnosis Ureteral Stent Exchange documented in this encounter Administered Medications Inactive Administered Medications - up to 3 most recent administrations Medication Order MAR Action Action Date Dose Rate Site acetaminophen tablet 1,000 mg Given 12/26/2018 10:10 AM CDT 1,00 0 mg (TYLENOL) 1,000 mg, oral, Once, On Elizabeth 12/26/18 at 1015, For 1 dose, Pre-Op iohexol 300 mg iodine/mL solution Given 12/26/2018 12:13 PM CDT 8 mL Other (OMNIPAQUE) As needed, Starting on Elizabeth 12/26/18 at 1213, Intra-Op lactated ringers New Bag 12/26/2018 12:43 PM CDT 20 mL/hr 20 mL/hr 20 mL/hr, intravenous, Continuous, Starting on Elizabeth 12/26/18 at 1015 New Bag 12/26/2018 10:14 AM CDT 20 mL/hr 20 mL/hr lidocaine HCl 2 % topical jelly Given 12/26/2018 11:51 AM CDT 1 application Other (UROJET) As needed, Starting on Elizabeth 12/26/18 at 1151, Intra-Op oxymetazoline 0.05 % nasal spray 2 spray Given 12/26/2018 1:32 P M CDT 2 sprays (AFRIN) 2 spray, each nostril, Once, On Elizabeth 12/26/18 at 1345, For 1 dose, PACU & Post-Op, Do not use for more than 3 days. sodium chloride 0.9 % injection 10 mL 10 mL, intravenous, As needed, line care , Starting on Elizabeth 12/26/18 at 1010, Pre-Op, Peripheral Intravenous Catheter and Rapid Infusion Cat heter, prior to blood sampling, post blood transfusion or post blood samplin g sodium chloride 0.9 % injection 3 mL 3 mL, intravenous, As needed, line care, Starting on Elizabeth 12/26/18 at 1010, Pre-Op, Prior to and following infusion and betw een multiple consecutive infusions: sodium chloride 0.9 % injection sodium chloride 0.9 % injection 3 mL 3 mL, intravenous, Every 12 hours scheduled, First dos e on Elizabeth 12/26/18 at 2100, Pre-Op, Peripheral Intravenous Catheter and Rapid Infu mario alberto Catheter, when no infusion to maintain patency documented in this encounter Active and Recently Administered Medications Times are shown in CDT. Scheduled Medication Order 12/24/2018 12/25/2018 12/26/2018 acetaminophen tablet 1,000 mg (TYLENOL) (COMPLETED) 1010 (Given - Provider: Radha Palacio R.N.) 1,000 mg, oral, Once, On Elizabeth 12/26/18 at 1015, For 1 dose, Pre-Op ceFAZolin injection 2 g (ANCEF) (COMPLETED) 1140 (Given - Provider: Mina Ordoñez APRN, SALES RECORD CLERK) 2 g, intravenous, Once, On Elizabeth 12/26/18 at 1000, For 1 dose, Intra-Op, Adminster IV push over 3 minutes. Add 5 mL NS to 1 gram vial for a final concentration of 200 mg/mL., Drug Monitoring Program: Pharma cist to adjust medication dosing based o n indication and drug clearance factors., Indications: Prophylaxis, surgical oxyCODONE IR tablet 5 mg (ROXICODONE) 1345 (Due) 5 mg, oral, Once, Elizabeth 12/26/18 at 1345, Fo r 1 dose, PACU (only), Prior to discharge oxymetazoline 0.05 % nasal spray 2 spray (AFRIN) (COMPLETED) 1332 (Given - Provider: Stephanie Martins R.N.) 2 spray, each nostril, Once, On Elizabeth at 1345, For 1 dose, PACU & Post-Op, Do not use for more than 3 days. sodium chloride 0.9 % injection 3 mL 3 mL, intravenous, Every 12 hours schedu led, First dose on Elizabeth 12/26/18 at 2100, Pre-Op, Peripheral Intravenous Catheter and Rapid Infusion Catheter, when no infusion to maintain patency sodium chloride 0.9 % injection 3 mL 3 mL, intravenous, Every 12 hours schedu led, First dose on Elizabeth 12/26/18 at 2100, Pre-Op, Peripheral Intravenous Catheter and Rapid Infusion Catheter, when no infusion to maintain patency Continuous Medication Order 12/24/2018 12/25/2018 12/26/2018 lactated ringers 1014 (New Bag - Provider: Radha Palacio RRalf)1221 (Anesthesia Volume Adjustment - Provider: Daniel Aldana APRN, SALES RECORD CLERK)1243 (New Bag - Provider: Stephanie Martins RRalf)1416 (Stopped - Provider: Pattie Corrales R.N.) 20 mL/hr, intravenous, Continuous, Starting on Elizabeth 12/26/18 at 101 5 PRN Medication Order 12/24/2018 12/25/2018 12/26/2018 dexamethasone injection 4 mg (DECADRON) 4 mg, intravenous, Once as needed, nause a, vomiting, Starting Elizabeth 12/26/18 at 1331, For 1 dose, Give only if NOT given during the pre or intraoperative period. If ondansetron ordered, give dexamethasone with first dose of ondansetron. droperidol injection 0.625 mg (INAPSINE) 0.625 mg, intravenous, Every 6 hours PRN , nausea, vomiting, Starting Elizabeth 12/26/18 at 1331, For 48 hours, Total of 3 doses in 24 hour period. RASS must be -2 or higher to administer. Reassess for nausea or vomiting after at least 10 minutes. If nausea or vomiting persists administer next ordered antiemetic medications (order for antiemetic medication administration ondansetron then droperidol then promethazine). fentaNYL injection 25 mcg (SUBLIMAZE) 25 mcg, intravenous, Every 2 min PRN, mo derate pain or score 4-6 of 10, severe pain or score 7-10 of 10, Starting Elizabeth 12/26/18 at 1331, PACU & Post-Op, Up to maximum total dose of 200 mcg iohexol 300 mg iodine/mL solution (OMNIPAQUE) (CANCELED) 1213 (Given - Provider: Micheal Fagan, B.Ch., B.A.O. - Comment: Right ureter) As needed, Starting on Elizabeth 12/26/18 at 1213, Intra-Op lidocaine HCl 2 % topical jelly (UROJET) (CANCELED) 1151 (Given - Provider: Clara Dey R.N. - Comment: urethra) As needed, Starting on Elizabeth 12/26/18 at 1151, Intra-Op naloxone injection 0.2 mg (NARCAN) 0.2 mg, intravenous, As needed, respirat ory depression, Starting Elizabeth 12/26/18 at 1331, For respiratory rate less than 8 breaths per minute or RASS score of -3, - 4, -5. Apply oxygen to keep oxygen saturations greater than 90% and notify service. ondansetron (PF) injection 4 mg (ZOFRAN) 4 mg, intravenous, Every 6 hours PRN, na usea, vomiting, Starting Elizabeth 12/26/18 at 1331, For 48 hours, PACU & Post-Op, Reassess for nausea or vomiting after at least 10 minutes. If nausea or vomiting pe rsists administer next ordered antiemeti c medications (order for antiemetic medication administration ondansetron then droperidol then promethazine). ondansetron (PF) injection 4 mg (ZOFRAN) 4 mg, intravenous, Every 6 hours PRN, na usea, vomiting, Starting Elizabeth 5/9/19 at 1331, For 48 hours, Reassess for nausea or vomiting after at least 10 minutes. If nausea or vomiting persists administer ne xt ordered antiemetic medications (order for antiemetic medication administration ondansetron then droperidol then promethazine). oxybutynin tablet 5 mg (DITROPAN) 5 mg, oral, Once as needed, If patient i s not required to void prior to dismissal, Starting Elizabeth 12/26/18 at 1331, For 1 dose, PACU & Post-Op promethazine injection 6.25 mg (PHENERGAN) 6.25 mg, intravenous, Every 6 hours PRN, nausea, vomiting, Starting Eilzabeth 12/26/18 at 1331, For 48 hours, RASS must be -2 or higher to administer. Reassess for nausea/vomiting after at least 10 minutes. If nausea or vomiting persists administer n ext ordered antiemetic medications (order for antiemetic medication administration ondansetron then droperidol then promethazine). sodium chloride 0.9 % injection 10 mL 10 mL, intravenous, As needed, line care , Starting on Elizabeth 12/26/18 at 1010, Pre- Op, Peripheral Intravenous Catheter and Rapid Infusion Catheter, prior to blood sampling, post blood transfusion or post blood sampling sodium chloride 0.9 % injection 10 mL 10 mL, intravenous, As needed, line care , Starting Elizabeth 12/26/18 at 1010, Pre-Op, Peripheral Intravenous Catheter and Rapid Infusion Catheter, prior to blood sampling, post blood transfusion or post blood sampling sodium chloride 0.9 % injection 3 mL 3 mL, intravenous, As needed, line care, Starting on Elizabeth 12/26/18 at 1010, Pre-Op, Prior to and following infusion and between multiple consecutive infusions: sodium chloride 0.9 % injection sodium chloride 0.9 % injection 3 mL 3 mL, intravenous, As needed, line care, Starting Elizabeth 12/26/18 at 1010, Pre-Op, Prior to and following infusion and between multiple consecutive infusions: sodium chloride 0.9 % injection documented in this encounter Additional Health Concerns Assessment Noted Time PHQ-9 Depression Total Score: 3 09/13/2017 7:47 AM COMPUTERIZED TABLE CUTTER documented as of this encounter
--- OUTSIDE RECORDS SUMMARY | 2022-05-25 13:26 | XMS_ITS | Encounter Summary ---
:1960 Author Organization [facility] Address [address] [place] [address] Care Team Providers Name Role Phone Unavailable Primary Care Provider Unavailable Encounter Details Date Type Department Care Team Description 12/26/2018 Hospital Encounter Outpatient Procedure Kristopher Spear, Center in [place] Debra [address] [place] [phone] (Wo rk) Social History Tobacco Use Types [...] How often do you attend voodoo or jewish 1 to 4 times per [...] or slept in a fci (including now)? Sex Assigned at Date Recorded Female 12/23/2021 4:18 AM CDT documented as of this encounter Last Filed Vital Signs Vital Sign Reading Time Taken Comments Blood Pressure 102/67 12/26/2018 2:00 PM CDT Pulse 68 12/26/2018 2:05 PM CDT Temperature 36.5 ??C (97.7 ??F) 12/26/2018 12:33 PM CDT Respiratory Rate 18 12/26/2018 2:05 PM CDT Oxygen Saturation 96% 12/26/2018 2:05 PM CDT Inhaled Oxygen Concentration - - Weight 98 kg (216 lb 0.8 oz) 12/26/2018 10:02 AM CDT Height 165.1 cm (5' 5) 12/26/2018 10:02 AM CDT Body Mass Index 35.95 12/26/2018 10:02 AM CDT documented in this encounter Discharge Instructions AttachmentsThe following attachments cannot be sent through Care Everywhere. About Your Ureteroscopy (Tongan)documented in this encounter Medications at Time of [...] Take 1 tablet by 0 06/13/2017 05/31/20 65-njraz-Y-biot-zinc mouth daily. (DIALYVITE) [phone] lv-gx-zez-mg tablet ciprofloxacin (CIPRO) Take 1 tablet by [...] this encounter OR Notes Op Note - aRman Way M.B., B.Ch., B.A.O. - 12/26/2018 11:58 AM CDT FULL OP NOTE Procedure(s) (LRB): EXCHANGE URETERAL STENT. (Right) RETROGRADE PYELOGRAM (Right) Surgeon(s) and Role: * Geraldo Spear M.D. - Primary * Raman Way M.B., B.Ch., B.A.O. - Knitter Hand * Shanon Benjamin M.D. - Other Mechanical Design Engineer Facilities Anesthesia Type: Monitored anesthesia care Pre-Operative Diagnosis: [...] appropriate informed consent patient was brought to [facility]. Patient was placed under mac sedation, was [...] Implant Name Type Inv. Item Serial No. Locksmith Apprentice Lot No. LRB No. Used Action STENT INLAY 8FR X 20CM - [id number] Ureteral Stent C.R.Bard 1 Explanted STNT URET INL 8FX20 - [id number] Ureteral Stent STNT URET INL 8FX20 C.R.Bard [id number] Right 1 Implanted Melissa Menjivar., B.Ch., B.A.O. documented in this encounter Plan of Treatment Upcoming Encounters Date Type Specialty Care Team Description 06/01/2022 Telemedicine Pharmacy An Nicholas APRN C.N.P., D.N.P., M.S.N. [address] [place] [address] [phone] (Nicolas wen) 07/31/2022 Lab Laboratory Medicine Tony Rubalcava M. B., ChBurke, Mukund [address] [place] [address] [phone] (Wo rk) 07/31/2022 Lab Laboratory Medicine Tony Rubalcava M. B., Sydnie, Mukund [address] [place] [address] [phone] (Wo rk) 07/31/2022 Office Visit Transplant Tony Rubalcava M.B., ChBurke, MDebra [address] [place] [address] [phone] (Wo rk) 07/31/2022 Appointment Radiology Tony Rubalcava M.B., ChBurke, MDebra [address] [place] [address] [phone] ( behzad) 08/01/2022 Office Visit Transplant Tony Rubalcava M.B., ChBurke, MDebra [address] [place] [address] [phone] (Wo behzad) 08/01/2022 Clinical Support Transplant GiniTony M.B., Shashi Otoole. [address] [place] [address] [phone] (Wo rk) documented as of this [...] Time Received Time / Laterality Volume Narrative [id number] - 12/26/2018 1:02 PM CDT This exam does not require a radiologist review or interpretation. Please refer to the patient's medical record on this date for clinical details. Lópze WE[facility]ALL FLUOROSCOPY PROCEDURES Performing Organization Address City/State/ZIP Code Phon e Number [id number] NA documented in this encounter Visit Diagnoses Not on filedocumented in this encounter Administered Medications Inactive Administered Medications - up to 3 most recent administrations Medication Order MAR Action Action Date Dose Rate Site acetaminophen tablet 1,000 mg Given 12/26/2018 10:10 AM CDT 1,00 0 mg (TYLENOL) 1,000 mg, oral, Once, On Elizabeth 12/26/18 at 1015, For 1 dose, Pre-Op lactated ringers New Bag 12/26/2018 12:43 PM CDT 20 mL/hr 20 mL/hr 20 mL/hr, intravenous, Continuous, Starting on Elizabeth 12/26/18 at 1015 New Bag 12/26/2018 10:14 AM CDT 20 mL/hr 20 mL/hr oxymetazoline 0.05 % nasal spray 2 spray [...] 1140 (Given - Provider: Mina Ordoñez APRN, [facility]) 2 g, intravenous, Once, On Elizabeth 12/26/18 [...] (COMPLETED) 1332 (Given - Provider: Stephanie Martins RDaviNDavi) 2 spray, each nostril, Once, On Elizabeth [...] 1014 (New Bag - Provider: Radha Palacio RDaviNDavi)1221 (Anesthesia Volume Adjustment - Provider: Daniel Aldana APRN, RUBBER COMPOUNDER)1243 (New Bag - Provider: Stephanie Martins RRalf)1416 [...] Elizabeth 12/26/18 at 1331, For 48 hours, Reassess for [...] Every 6 hours PRN, nausea, vomiting, Starting Elizabeth 12/26/18 at 1331, For 48 hours, RASS [...] Depression Total Score: 3 09/13/2017 7:47 AM STENCIL INSPECTOR documented as of this encounter
--- OUTSIDE RECORDS SUMMARY | 2022-05-25 13:27 | XMS_ITS | Encounter Summary ---
:1960 Author Organization [facility] Address [address] [place] [address] Care Team Providers Name Role Phone Unavailable Primary Care Provider Unavailable Encounter Details Date Type Department Care Team Description 12/16/2018 Orders Only Department of Urology Geraldo Spear eteral Stent Exchange in Catrachita Hernandez M.D. (Primary Dx) [address] [place] [phone] Social History Tobacco Use Types Packs/Day Years [...] How often do you attend alevism or faith 1 to 4 times per [...] Nicholas APRN C.N.P., D.N.P., M.S.N. [address] [place] [address] 55 [phone] (Wo rk) 07/31/2022 Lab Laboratory Medicine Tony Rubalcava M. B., Sydnie, MDebra [address] [place] [address] [phone] (Wo rk) 07/31/2022 Lab Laboratory Medicine Tony Rubalcava M. B., Sydnie, Mukund [address] [place] [address] [phone] (Wo rk) 07/31/2022 Office Visit Transplant Tony Rubalcava M.B., Sydnie, MDebra [address] [place] [address] [phone] (Wo rk) 07/31/2022 Appointment Radiology Tony Rubalcava M.B., Sydnie, Mukund [address] [place] [address] [phone] (Wo rk) 08/01/2022 Office Visit Transplant Tony Rubalcava M.B., Sydnie, Mukund [address] [place] [address] [phone] (Wo rk) 08/01/2022 Clinical Support Transplant Tony Rubalcava M.B., Sydnie, Shashi. [address] [place], [place] [phone] (Wo rk) documented as of this encounter Visit Diagnoses Diagnosis Ureteral Stent Exchange - Primary documented in this encounter Additional Health Concerns Assessment Noted Time PHQ-9 Depression Total Score: 3 09/13/2017 7:47 AM MARKET MANAGER documented as of this encounter
--- OUTSIDE RECORDS SUMMARY | 2022-05-25 13:27 | XMS_ITS | Encounter Summary ---
:1960 Author Organization [facility] Address [address] [place] [address] Care Team Providers Name Role Phone Unavailable Primary Care Provider Unavailable Encounter Details Date Type Department Care Team Description 11/29/2018 Documentation Division of Nephrology and Clara Clrake R.N. Hypertension in [place], [facility] 1 [place], [place] 200 [facility] [address] [place] [address] [phone] Social History Tobacco Use Types Packs/Day Years [...] How often do you attend anabaptist or moravian 1 to 4 times per [...] encounter Progress Notes Clara Clarke R.N. - 11/29/2018 3:15 PM CDT Patients fistulogram at [facility] that had been scheduled for 11/28/18 has been rescheduled to Sunday, 8:45am at [facility] desk M-D. Patient has the portal and has her instructions. documented in this encounter Plan of Treatment Upcoming Encounters Date Type Specialty Care Team Description 06/01/2022 Telemedicine Pharmacy An Nicholas APRN C.N.P., D.N.P., M.S.N. [address] [place] [address] [phone] (Wo rk) 07/31/2022 Lab Laboratory Medicine Tony Rubalcava M. B., ChBurke, MDebra [address] [place] [address] [phone] (Wo rk) 07/31/2022 Lab Laboratory Medicine Tony Rubalcava M. B., ChBurke, MDebra [address] [place] [address] [phone] (Wo rk) 07/31/2022 Office Visit Transplant Tony Rubalcava M.B., ChBurke, MDebra [address] [place] [address] [phone] (Wo rk) 07/31/2022 Appointment Radiology Tony Rubalcava M.B., Mukund Otoole [address] [place] [address] [phone] (Wo rk) 08/01/2022 Office Visit Transplant Tony Rubalcava M.B., Mukund Otoole [address] [place] [address] [phone] (Wo rk) 08/01/2022 Clinical Support Transplant Tony Rubalcava M.B., Sydnie, Mukund [address] [place] [address] [phone] (Wo rk) documented as of this encounter Visit Diagnoses Not on filedocumented in this encounter Additional Health Concerns Assessment Noted Time PHQ-9 Depression Total Score: 3 09/13/2017 7:47 AM CLINICAL SPECIALIST MEDICAL DEVICE documented as of this encounter
--- OUTSIDE RECORDS SUMMARY | 2022-05-25 13:27 | XMS_ITS | Encounter Summary ---
:1960 Author Organization [facility] Address [address] [place] [address] Care Team Providers Name Role Phone Unavailable Primary Care Provider Unavailable Encounter Details Date Type Department Care Team Description 11/29/2018 Hospital Encounter Department of Soraya Lu Pre transplant Recipient Evaluation Exam; Laboratory Danial Mascorro., M.S. Chronic Kidney Disease Medicine and [address] [place] [address], [place] [address] [facility] [phone] [place] (Work) [address] [place] [address] [place], [place] (Fax) [phone] Social History Tobacco Use [...] How often do you attend quaker or druze 1 to 4 times per [...] 1 tablet by 0 06/13/2017 05/31/20 19 77-ltpny-A-biot-zinc mouth daily. (DIALYVITE) [id number] jd-cl-ezb-mg tablet ciprofloxacin (CIPRO) Take 1 tablet by [...] Nicholas APRN, C.N.P., D.N.P., M.S.N. [address] [place] [address] [phone] (Wo rk) 07/31/2022 Lab Laboratory Medicine Tony Rubalcava M. B., Ch.B., M.D. [address] [place] [address] [phone] (Wo rk) 07/31/2022 Lab Laboratory Medicine Tony Rubalcava M. B., Ch.B., M.D. [address] [place] [address] [phone] (Wo rk) 07/31/2022 Office Visit Transplant Tony Rubalcava M.B., Ch.B., M.D. [address] [place] [address] [phone] (Wo rk) 07/31/2022 Appointment Radiology Tony Rubalcava M.B., Ch.B., M.D. [address] [place], [place] 55 [phone] (Wo rk) 08/01/2022 Office Visit Transplant Tony Rubalcava M.B., Mukund Otoole [address] [place], [place] [phone] (Wo rk) 08/01/2022 Clinical Support Transplant Tony Rubalcava M.B., Mukund Otoole [address] [place], [place] [phone] (Wo rk) documented as of this encounter Procedures Procedure Name Priority Date/Time Associated Diagnosis Comme nts HLA CLASS II SAB Routine 01/01/2019 5:45 AM Pretransplant Resu lts for this ANTIBODY SCREEN CDT Recipient Evaluation proc edure are in Exam the results Chronic Kidney Disease secti on. HLA CLASS I SAB Routine 01/01/2019 5:45 AM Pretransplant Resul ts for this ANTIBODY SCREEN CDT Recipient Evaluation proc edure are in Exam the results Chronic Kidney Disease secti on. documented in this encounter Results HLA Class II SAB Antibody Screen (01/01/2019 5:45 AM CDT) [facility] Method Time Signature Class II SAB Positive Not Applicable 01/06/2019 [facility] Overall 9:18 AM CDT LABORATORIES [facility] Class II SAB 37 01/06/2019 [facility] cPRA 9:18 AM CDT LABORATORIES [facility] Comment: ----ADDITIONAL INFORMATION---- This PRA is a [facility] calculated PRA. PRA is based on the antigen frequency of the Tissue Typing patient a nd donor population. ??PRA reflects all antibodie s with a normalized value (MFI) above 300. SAB DRB1 Specificity NONE 01/06/2019 9:18 AM CDT [facility] PUS SAB [id number] Specificity NONE 01/06/2019 9:18 A M CDT [facility] PUS SAB DQB1 Specificity see below 01/06/2019 9:18 AM CDT [facility] PUS Comment: 2[50338] Format: Serologic equivalent/abbreviated specificity [Normalized Value] shown in decreasing o rder. Note: A serologic equivalent/abbreviated specifi city displayed multiple times could indicate different alleles. SAB DPB1 Specificity NONE 01/06/2019 9:18 AM CDT [facility] Comment: ----ADDITIONAL INFORMATION---- Method: [facility] Performing Laboratory CLIA# [id number] Specimen Anatomical Collection Method Collection Time Receive d Time (Source) Location / / Volume Laterality Blood (Blood, 01/01/2019 5:45 AM 01/03/20 19 Venous) CDT 11:13 AM CDT Soraya Lu P.A.-C., M.S. LAB HLA ORDERABLES Performing Organization Address City/State/ZIP Code Phon e Number [facility] - [address] [place], [place] [address] [facility] HLA Class I SAB Antibody Screen (01/01/2019 5:45 AM CDT) [facility] Method Time Signature Class I SAB Positive Not Applicable 01/06/2019 [facility] Overall 9:14 AM CDT LABORATORIES - Result [facility] Class I SAB 84 01/06/2019 [facility] cPRA 9:14 AM CDT [facility] Comment: ----ADDITIONAL INFORMATION---- This PRA is a [facility] ue Typing Laboratory calculated PRA. PRA is based on the antigen frequency of the Tissue Typing patient a nd donor population. ??PRA reflects all antibodie s with a normalized value (MFI) above 300. SAB A Specificity see below 01/06/2019 9:14 AM CDT [facility] Comment: 32[3737], 31[3057], 23[1884], 25[1878], 24[1599], 24[1529], 30[1527], 30[1091] Format: Serologic equivalent/abbreviated specificity [Normalized Value] shown in decreasing o rder. Note: A serologic equivalent/abbreviated specifi city displayed multiple times could indicate different alleles. SAB B Specificity see below 01/06/2019 9:14 AM CDT [facility] Comment: 51[8881], 51[3517], 77[3966], 49[3907], 52[3689], 75[3563], 78[3460], 38[3078], 63[3031], 59[2998], 53[2475], 58[2270], 57[2242], 57[2147], 71[981], 75[854], 27 [829], 13[778], 37[709], 44[625], 44[578], 47[357], 35[3 22], 13[312] Format: Serologic equivalent/abbreviated specificity [Normalized Value] shown in decreasing o rder. Note: A serologic equivalent/abbreviated specifi city displayed multiple times could indicate different alleles. SAB C Specificity NONE 01/06/2019 9:14 AM CDT [facility] LABORATORIES - [facility] Comment: ----ADDITIONAL INFORMATION---- Method: [facility] Performing Laboratory CLIA# [id number] Specimen Anatomical Collection Method Collection Time Receive d Time (Source) Location / / Volume Laterality Blood (Blood, 01/01/2019 5:45 AM 01/03/20 19 Venous) CDT 11:13 AM CDT Soraya Lu P.A.-C., M.S. LAB HLA ORDERABLES Performing Organization Address City/State/ZIP Code Phon e Number 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
--- OUTSIDE RECORDS SUMMARY | 2022-05-25 13:27 | XMS_ITS | Encounter Summary ---
:1960 Author Organization [facility] Address 200 [place] [address] Care Team Providers Name Role Phone Unavailable Primary Care Provider Unavailable Reason for Visit Outpatient (Routine) - Closed Specialty Diagnoses / Procedures Referred By Contact Refer red To Contact Nephrology and Diagnoses Complication Dialysis Fistula Subsequent Chronic Kidney Disease Stage 4 Glomerular Filtration Rate 15-29 (HCC) Steve Martínez [facility] Hypertension / Dialysis , D.O. 200 [place] [address] Referral ID Status Reason Start Date Expiration Date Visits Requ ested Visits Authorized [id number] Closed 10/28/2018 10/28/2019 1 1 Encounter Details Date Type Department Care Team Description 10/28/2018 Comprehensive Visit Division of Vascular Steve Mcintosh Jr., D.O. 200 [place] [address] Complication Dialysis Fistula Subsequent ; and Endovascular Diana Barraza M.B.B.SDavi 200 [place] [phone] Chronic Kidney Disease Stage 4 Glomerula r Filtration Rate 15- 29 (HCC) Surgery in [place], [place] [address] [place] [phone] Social History Tobacco Use Types Packs/Day Years [...] How often do you attend scientology or shinto 1 to 4 times per [...] documented as of this encounter Consult Notes Mina Watson M.D. - 10/28/2018 1:20 PM CDT Shabnam Wray : 1960 Visit Date: 10/28/18 Steve Martínez Jr., * SUBJECTIVE CHIEF COMPLAINT/ REASON FOR VISIT: Left upper extremity hematoma End Stage Renal Disease HISTORY OF PRESENT ILLNESS: Shabnam Wray is a 58 y.o. female that presents for consultation. She has been referred for evaluation of her left upper extremity brachial basilic fistula. Last week, the patient lost a thrill inher left brachial basilic fistula and on evaluation was found to have thrombus throughout her fistula. On 10/25/2018, she was taken by interventional Radiology for a left upper extremity fistula declot, fistulogram and stenting of her left brachial basilic fistula. This was complicated by a pseudoaneurysm at 1 of the puncture sites as well as a hematoma. The pseudoaneurysm was managed with a cover stent that showed no filling of the fistula. The patient recovered in the PACU after the procedure however has had persistent pain in the left upper extremity ever since. She is dialyzed twice since this operation with no difficulty accessing the fistula and no problems with dialysis. She states that herpain is only in her upper arm at the side hematoma. She denies any pain in her forearm or hand. She denies any weakness of her hand. She has had numbness of her hand since the fistula creation and thisis not changed. She denies any worsening swelling of her left upper extremity. Current Medications: ??? B complex 69-yepik-T-biot-zinc (DIALYVITE) [id number] ra-jr-uth-mg tablet, Take 1 tablet by mouth daily. [...] (three) times a day. For 14 days ??? mycophenolate (CELLCEPT) 250 mg capsule, TAKE 2 CAPSULES BY MOUTH TWICE DAILY ??? nebivolol (BYSTOLIC) 10 mg tablet, Take 1 tablet (10 mg total) by mouth daily. ??? predniSONE (DELTASONE) 5 mg tablet, Take 1 tablet (5 mg total) by mouth daily. ??? rosuvastatin (CRESTOR) 5 mg tablet, Take 1 tablet (5 mg total) by mouth daily. ??? sevelamer (RENVELA) 800 mg tablet, Take [...] upper extremities reveal no anatomical abnormalities. Extremities: Pulses Exam Left upper extremity-there is a small hematoma at the proximal aspect of the patient's left upper extremity. The patient's left upper extremity is soft without any concern for compartment syndrome. There is a good thrill in the fistula in the lower arm. The patient has 5/5 strength in her left hand. DIAGNOSTIC STUDIES Ultrasound Results: Duplex ultrasound of the left brachial basilic fistula demonstrates a patent basilic vein fistula without any evidence stenosis. The flow volume is 769 mL/min which is slightly decreased from her prior duplex in October of 2017. Her is a 4 x 6 x 30 mm hematoma in the upper arm at thelevel the stent. ASSESSMENT / PLAN 1. Left upper extremity hematoma-I discussed with the patient that her exam is overall benign with no features to suggest compartment syndrome or compression of the median nerve. I reassured the patient that she has no weakness of her hand or change in her sensation from baseline. Her upper arm is soft throughout except for the small hematoma at the upper aspect. I reassured the patient that althoughthis is painful now, it will continue to improve over the next 7-10 days. I do not recommend any drainage of the hematoma as her fistula is patent. There has been no difficulty accessing the fistula and no problems with her dialysis runs. She has a good thrill in the fistula closer to the antecubital f cruz. The patient can use heat packs as needed to help loosen the hematoma. This patient was seen and discussed with Dr. Barraza who agrees the plan above DIAGNOSIS: #1 Complication Dialysis Fistula Subsequent #2 Chronic Kidney Disease Stage 4 Glomerular Filtration Rate 15-29 ([facility]) Mina Watson M.D. Associated attestation - Diana Barraza M.B.B.S. - 10/29/2018 2:18 PM CDT documented in this encounter Plan of Treatment Upcoming Encounters Date Type Specialty Care Team Description 06/01/2022 Telemedicine Pharmacy An Nicholas APRN, C.N.P., WhitneyN.P., M.S.N. [address] [place] [address] [phone] (Wo rk) 07/31/2022 Lab Laboratory Medicine Tony Rubalcava M. B., ChBurke, MDebra [address] [place] [address] [phone] (Wo rk) 07/31/2022 Lab Laboratory Medicine Tony Rubalcava M. B., ChBurke, Mukund [address] [place] [address] [phone] (Wo rk) 07/31/2022 Office Visit Transplant Tony Rubalcava M.B., Sydnie, MDebra [address] [place] [address] [phone] (Wo rk) 07/31/2022 Appointment Radiology Tony Rubalcava M.B., ChBurke, MDebra [address] [place] [address] [phone] (Wo rk) 08/01/2022 Office Visit Transplant Tony Rubalcava M.B., ChBurke, MDebra [address] [place] [address] [phone] (Wo behzad) 08/01/2022 Clinical Support Transplant Tony Rubalcava M.B., Sydnie, MDebra [address] [place] [address] [phone] (Nicolas wen) documented as of this encounter Visit Diagnoses Diagnosis Complication Dialysis Fistula Subsequent Chronic Kidney Disease Stage 4 Glomerula r Filtration Rate 15-29 (HCC) documented in this encounter Additional Health Concerns Assessment Noted Time PHQ-9 Depression Total Score: 3 09/13/2017 7:47 AM 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
--- OUTSIDE RECORDS SUMMARY | 2022-05-25 13:27 | XMS_ITS | Encounter Summary ---
:1960 Author Organization [facility] Address 200 [place] [address] Care Team Providers Name Role Phone Unavailable Primary Care Provider Unavailable Reason for Referral Outpatient (Routine) - Closed Specialty Diagnoses / Procedures Referred By Contact Refer red To Contact Nephrology and Diagnoses Complication Dialysis Fistula Subsequent Chronic Kidney Disease Stage 4 Glomerular Filtration Rate 15-29 (HCC) Steve Martínez [facility] Hypertension / Dialysis Brody Garcia 200 [place] [address] Referral ID Status Reason Start Date Expiration Date Visits Requ ested Visits Authorized [id number] Closed 10/28/2018 10/28/2019 1 1 Encounter Details Date Type Department Care Team Description 10/28/2018 Orders Only Division of Nephrology Steve Martínez omplication Dialysis Fistula Subsequent (Primary Dx); and Hypertension in [place] Garcia D.O. Chronic Kidney Disease Stage 4 Glomerula r Filtration Rate 15-29 (HCC) [place], [place] 200 [facility] 200 [place] [address] [phone] Social History Tobacco Use Types Packs/Day Years [...] How often do you attend nondenominational or buddhist 1 to 4 times per [...] or slept in a intermediate (including now)? Sex Assigned at Date Recorded Female 12/23/2021 4:18 AM CDT documented as of this encounter Plan of Treatment Upcoming Encounters Date Type Specialty Care Team Description 06/01/2022 Telemedicine Pharmacy An Nicholas APRN C.N.P., D.N.P., M.S.N. [address] [place] [address] [phone] (Nicolas wen) 07/31/2022 Lab Laboratory Medicine Tony Rubalcava M. B., Ch.B., M.D. [address] [place] [address] [phone] (Nicolas wen) 07/31/2022 Lab Laboratory Medicine Tony Rubalcava M. B., Ch.B., M.D. [address] [place] [address] [phone] (Wo rk) 07/31/2022 Office Visit Transplant Tony Rubalcava M.B., Mukund Otoole [address] [place] [address] [phone] (Wo rk) 07/31/2022 Appointment Radiology Tony Rubalcava M.B., Mukund Otoole [address] [place] [address] [phone] (Wo rk) 08/01/2022 Office Visit Transplant Tony Rubalcava M.B., Mukund Otoole [address] [place] [address] [phone] (Wo rk) 08/01/2022 Clinical Support Transplant Tony Rubalcava M.B., Sydnie, Mukund [address] [place] [address] [phone] (Wo rk) Scheduled Referrals Name Type Priority Associated Diagnoses Order S chedule Dialysis-Hemodial Outpatient Referral Routine Complication Radhika lysis Expected: ysis Surgeon Fistula Subseque nt 10/28/2018 Access (clinic) Chronic Kidney Disease (A pproximate), Stage 4 Glomerular Expires: Filtration Rate 15-29 2021 (HCC) documented as of this encounter Results US Hemodialysis Fistula-Graft Left (10/28/2018 12:18 PM CDT) Anatomical Region Laterality Modality Body, Ultrasound RST LOS, Ultrasound ARZ LOS, Ultrasound FLA Left Ultrasound LOS Specimen (Source) Anatomical Collection Method Collection Time Re ceived Time Location / / Volume Laterality 10/28/2018 12:21 PM CDT Impressions 10/28/2018 1:27 PM CDT IMPRESSION: ??Left brachial basilic arteriovenous fistula patent but incompletely visualized due to overlying bandage. Pat ent stent in the basilic vein upper humerus segment with small amount of flu id. ?? Narrative 10/28/2018 1:27 PM CDT EXAM: US HEMODIALYSIS FISTULA-GRAFT LEFT Exam performed with color and spectral D oppler analysis. COMPARISON: Prior ultrasound 11/15/2017 and fistulogram 10/25/2018 FINDINGS: Location: Left brachial artery to basili c vein fistula. Arterial: Reversed flow below the fistul a. Antegrade flow at the radial and ulnar arteries at the wrist. Anastomosis: No evidence of significant stenosis. Outflow vein: The patient had recent radhika lysis and bandage could not be removed preventing evaluation of the lower humer us basilic vein segment. In the mid humerus the vein is patent without steno sis. Stent has been placed in the basilic vein upper humerus segment and i s patent with diffusely higher velocities between 161-178 cm/s but no v isual narrowing. There is a small amount of fluid/hematoma around the stent 4 x 6 x 30 mm and at the antecubital level measuring 4 x 6 x 20 mm. Central veins: Patent without significan t stenosis. Branches: None Mean average flow volume: 769 mL/min. <500 ml/min = low flow 500-800 ml/min = borderline >800 ml/min = normal ?? Procedure Note Kita Bustillos M.D. - 10/28/2018Form atting of this note might be different from the original. EXAM: US HEMODIALYSIS FISTULA-GRAFT LEFT Exam performed with color and spectral D oppler analysis. COMPARISON: Prior ultrasound 11/15/2017 and fistulogram 10/25/2018 FINDINGS: Location: Left brachial artery to basili c vein fistula. Arterial: Reversed flow below the fistul a. Antegrade flow at the radial and ulnar arteries at the wrist. Anastomosis: No evidence of significant stenosis. Outflow vein: The patient had recent radhika lysis and bandage could not be removed preventing evaluation of the lower humer us basilic vein segment. In the mid humerus the vein is patent without steno sis. Stent has been placed in the basilic vein upper humerus segment and i s patent with diffusely higher velocities between 161-178 cm/s but no v isual narrowing. There is a small amount of fluid/hematoma around the stent 4 x 6 x 30 mm and at the antecubital level measuring 4 x 6 x 20 mm. Central veins: Patent without significan t stenosis. Branches: None Mean average flow volume: 769 mL/min. <500 ml/min = low flow 500-800 ml/min = borderline >800 ml/min = normal IMPRESSION: Left brachial basilic arteri ovenous fistula patent but incompletely visualized due to overlying bandage. Pat ent stent in the basilic vein upper humerus segment with small amount of flu id. 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
--- OUTSIDE RECORDS SUMMARY | 2022-05-25 13:27 | XMS_ITS | Encounter Summary ---
:1960 Author Organization [facility] Address [address] [place] [address] Care Team Providers Name Role Phone Unavailable Primary Care Provider Unavailable Reason for Referral Transplant (Routine) - Closed Specialty Diagnoses / Procedures Referred By Contact Refer red To Contact Transplant Diagnoses Failure Renal Twin Vanegas M.D. [facility] [address] [place] [phone] Referral ID Status Reason Start Date Expiration Date Visits Requ ested Visits Authorized [id number] Closed 12/19/2018 04/06/2022 99 99 Reason for Visit Reason Onset Date Comments financial approval 12/19/2018 Encounter Details Date Type Department Care Team Description 12/19/2018 Clinical Ata [facility] Communication Center for Provider approval Transplantation and Clinical Regeneration in [place], [place] [address] [place] [phone] Social History Tobacco Use Types Packs/Day Years [...] How often do you attend spiritism or episcopalian 1 to 4 times per [...] or slept in a retirement (including now)? Sex Assigned at Date Recorded Female 12/23/2021 4:18 AM CDT documented as of this encounter Plan of Treatment Upcoming Encounters Date Type Specialty Care Team Description 06/01/2022 Telemedicine Pharmacy An Nicholas APRN C.N.P., D.N.P., M.S.N. [address] [place] [address] [phone] (Nicolas wen) 07/31/2022 Lab Laboratory Medicine Tony Rubalcava M. B., Ch.B., MElvia. [address] [place] [address] [phone] (Nicolas wen) 07/31/2022 Lab Laboratory Medicine Tony Rubalcava M. B., ChDaviB., MElvia. [address] [place] [address] [phone] (Nicolas wen) 07/31/2022 Office Visit Transplant Tony Rubalcava M.B., ChBurke, MElvia. [address] [place] [address] [phone] (Nicolas wen) 07/31/2022 Appointment Radiology Tony Rubalcava M.B., Mukund Otoole [address] [place] [address] [phone] (Wo rk) 08/01/2022 Office Visit Transplant Tony Rubalcava M.B., Mukund Otoole [address] [place] [address] [phone] (Wo rk) 08/01/2022 Clinical Support Transplant Tony Rubalcava M.B., Sydnie, Mukund [address] [place] [address] [phone] (Wo rk) Scheduled Referrals Name Type Priority Associated Order Schedule Diagnoses Transplant referral Outpatient Referral Routine Failure Renal Ordered: authorization and 12/19/2018 benefits check documented as of this encounter Visit Diagnoses Diagnosis Failure Renal - Primary documented in this encounter Additional Health Concerns Assessment Noted Time PHQ-9 Depression Total Score: 3 09/13/2017 7:47 AM 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
--- OUTSIDE RECORDS SUMMARY | 2022-05-25 13:27 | XMS_ITS | Encounter Summary ---
:1960 Author Organization [facility] Address [address] [place] [address] Care Team Providers Name Role Phone Unavailable Primary Care Provider Unavailable Encounter Details Date Type Department Care Team Description 10/25/2018 Orders Only Division of Nephrology Steve Martínez omplication Dialysis Fistula Subsequent (Primary Dx); and Hypertension in Fracisco Garcia D.O. Chronic Kidney Disease Stage 5 Glomerula r Filtration Rate Less Than 15 (HCC) [place], [place] [address] [facility] [address] [place] [phone] Social History Tobacco Use Types Packs/Day Years [...] How often do you attend adventist or anabaptist 1 to 4 times per [...] or slept in a penitentiary (including now)? Sex Assigned at Date Recorded Female 12/23/2021 4:18 AM CDT documented as of this encounter Plan of Treatment Upcoming Encounters Date Type Specialty Care Team Description 06/01/2022 Telemedicine Pharmacy An Nicholas APRN C.N.P., D.N.P., M.S.N. [address] [place] [address] [phone] (Nicolas wen) 07/31/2022 Lab Laboratory Medicine Tony Rubalcava M. B., ChBurke, M.D. [address] [place] [address] [phone] (Nicolas wen) 07/31/2022 Lab Laboratory Medicine Tony Rubalcava M. B., ChDaviBDavi, MDaviD. [address] [place] [address] [phone] (Nicolas wen) 07/31/2022 Office Visit Transplant Tony Rubalcava M.B., ChDaviBDavi, M.D. [address] [place] [address] [phone] (Nicolas wen) 07/31/2022 Appointment Radiology Tony Rubalcava M.B., ChDaviBDavi, MDaviD. [address] [place] [address] [phone] (Nicolas wen) 08/01/2022 Office Visit Transplant Tony Rubalcava M.B., Mukund Otoole [address] [place], [place] [phone] (Wo behzad) 08/01/2022 Clinical Support Transplant Tony Rubalcava M.B., Mukund Otoole [address] [place], [place] [phone] (Nicolas wen) documented as of this encounter Results IR Dialysis Fistulagram Left (12/03/2018 11:25 AM CDT) Anatomical Region Laterality Modality Body, Vascular Interventional RST LOS, Vascular Left X-Ray Angiography Interventional ARZ LOS, Vascular Interventional FLA LOS Specimen (Source) Anatomical Collection Method Collection Time Re ceived Time Location / / Volume Laterality 12/03/2018 4:26 PM CDT Impressions 12/03/2018 4:34 PM CDT IMPRESSION: Successful LOCAL AREA NETWORK ADMINISTRATOR of the AV anastomosis. EP Narrative 12/03/2018 4:34 PM CDT EXAM: IR DIALYSIS FISTULAGRAM LEFT CLINICAL HISTORY: Malfunctioning left ar m brachial basilic fistula TECHNIQUE: Left arm prepped and draped u sual sterile fashion. Fistula accessed near the anastomosis. Fistulogram perfor med from the brachial artery to the right atrium. There is a stenosis near t he anastomosis. Sheath was removed and hemostasis was obtained. Ultrasound guid ance was used to puncture the outflow vein towards the artery. A 5 Serbian adam th was placed. The anastomosis was dilated with a 5 mm balloon. Good result was seen. Sheath was removed and hemostasis was obtained. PREPROCEDURE: Patient seen, evaluated, h istory reviewed, [...] procedure. The total intra-procedural sedation time was: 44 m inutes. Estimated blood loss: none.. Using ultrasound guidance to access vess el, patency was shown and after anesthetizing the skin with lidocaine th e basilic vein was punctured successfully. A permanent image was cregrant fernandez and stored. Procedure Note Shlomo Monreal M.D. - 12/03/2018Formatti ng of this note might be different from the original. EXAM: IR DIALYSIS FISTULAGRAM LEFT CLINICAL HISTORY: Malfunctioning left ar m brachial basilic fistula TECHNIQUE: Left arm prepped and draped u sual sterile fashion. Fistula accessed near the anastomosis. Fistulogram perfor med from the brachial artery to the right atrium. There is a stenosis near t he anastomosis. Sheath was removed and hemostasis was obtained. Ultrasound guid ance was used to puncture the outflow vein towards the artery. A 5 Serbian adam th was placed. The anastomosis was dilated with a 5 mm balloon. Good result was seen. Sheath was removed and hemostasis was obtained. PREPROCEDURE: Patient seen, evaluated, h istory reviewed, [...] procedure. The total intra-procedural sedation time was: 44 m inutes. Estimated blood loss: none.. Using ultrasound guidance to access vess el, patency was shown and after anesthetizing the skin with lidocaine th e basilic vein was punctured successfully. A permanent image was crea rebecca and stored. IMPRESSION: Successful LOCAL AREA NETWORK ADMINISTRATOR of the AV hernesto stomosis. EP Steve Martínez Jr. D.ODavi [place] IR [...] Depression Total Score: 3 09/13/2017 7:47 AM WARP TIER documented as of this encounter
--- OUTSIDE RECORDS SUMMARY | 2022-05-25 13:27 | XMS_ITS | Encounter Summary ---
:1960 Author Organization [facility] Address 200 [place] [address] Care Team Providers Name Role Phone Unavailable Primary Care Provider Unavailable Encounter Details Date Type Department Care Team Description 12/12/2018 Orders Only Department of Urology Geraldo Spear eteral Stent Exchange in Catrachita Hernandez M.D. (Primary Dx) [address] 200 [place] [address] [phone] Social History Tobacco Use Types Packs/Day Years [...] How often do you attend hoahaoism or hoahaoism 1 to 4 times per [...] Nicholas APRN C.N.P., D.N.P., M.S.N. [address] [place] [address] [phone] (Wo rk) 07/31/2022 Lab Laboratory Medicine Tony Rubalcava M. B., Sydnie, MDebra [address] [place] [address] [phone] (Wo rk) 07/31/2022 Lab Laboratory Medicine Tony Rubalcava M. B., Sydnie, Mukund [address] [place] [address] [phone] (Wo rk) 07/31/2022 Office Visit Transplant Tony Rubalcava M.B., Sydnie, MDebra [address] [place] [address] [phone] (Wo rk) 07/31/2022 Appointment Radiology Tony Rubalcava M.B., Sydnie, Mukund [address] [place] [address] [phone] (Wo rk) 08/01/2022 Office Visit Transplant Tony Rubalcava M.B., Sydnie, Mukund [address] [place] [address] [phone] (Wo rk) 08/01/2022 Clinical Support Transplant Tony Rubalcava M.B., Sydnie, Shashi. 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
--- OUTSIDE RECORDS SUMMARY | 2022-05-25 13:27 | XMS_ITS | Encounter Summary ---
:1960 Author Organization [facility] Address [address] [place] [address] Care Team Providers Name Role Phone Unavailable Primary Care Provider Unavailable Encounter Details Date Type Department Care Team Description 10/28/2018 Hospital Encounter Department of Tanya, Olivia tichalo Dialysis Fistula Subsequent; Radiology, Earnest Yap Jr., Chronic Ki dney Disease Stage 4 Glomerular Filtration Rate 15-29 ([facility]) [facility] [address] [place], [place] [address] [facility] [address] [place], [place] [phone] (Work) [phone] Social History Tobacco Use Types Packs/Day Years [...] or slept in a [facility] (including now)? Sex Assigned at Date Recorded [...] 1 tablet by 0 06/13/2017 05/31/20 19 55-xerri-G-biot-zinc mouth daily. (DIALYVITE) [id number] gk-mv-ksi-mg tablet ciprofloxacin (CIPRO) Take 1 tablet by [...] Nicholas APRN, C.N.P., D.N.P., M.S.N. [address] [place] [address] [phone] (Nicolas rk) 07/31/2022 Lab Laboratory Medicine Tony Rubalcava M. B., ChBurke, MElvia. [address] [place] [address] [phone] (Wo rk) 07/31/2022 Lab Laboratory Medicine Tony Rubalcava M. B., Ch.BDavi, M.D. [address] [place] [address] [phone] (Wo behzad) 07/31/2022 Office Visit Transplant Tony Rubalcava M.B., Ch.Maurice, MElvia. [address] [place] [address] [phone] (Wo behzad) 07/31/2022 Appointment Radiology Tony Rubalcava M.B., Mukund Otoole [address] [place], [place] 55 [phone] (Wo rk) 08/01/2022 Office Visit Transplant Tony Rubalcava M.B., Mukund Otoole [address] [place], [place] 55 [phone] (Nicolas wen) 08/01/2022 Clinical Support Transplant Tony Rubalcava M.B., Mukund Otoole [address] [place], [place] [phone] (Nicolas wen) documented as of this encounter Procedures Procedure Name Priority Date/Time Associated Comments Diagnosis US HEMODIALYSIS RAD - Routine 10/28/2018 12:18 Complication Results for FISTULA-GRAFT LEFT (most inpatients PM CDT Dialysis Fistula t his procedure and all Subsequent are in the outpatients) Chronic Kidney results Disease Stage 4 section. Glomerular Filtration Rate 15-29 (HCC) documented in this encounter Results US [...] amount of flu id. 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
--- OUTSIDE RECORDS SUMMARY | 2022-05-25 13:27 | XMS_ITS | Encounter Summary ---
:1960 Author Organization [facility] Address [address] [place] [address] Care Team Providers Name Role Phone Unavailable Primary Care Provider Unavailable Encounter Details Date Type Department Care Team Description 12/03/2018 Hospital Encounter Department of Josr Martínez Jr., D.ODavi 200 [place] [phone] Complication Dialysis Fistula Subsequent ; Radiology in Shlomo Monreal M.D. 200 [place] [phone] Chronic Kidney Disease Stage 5 Glomerula r Filtration Rate Less Than 15 (HCC) Kinza Hernandez Alec E, M.D. 200 [place] [phone] [address] [place] [address] Social History Tobacco Use Types [...] How often do you attend taoist or christianity 1 to 4 times per [...] slept in a skilled nursing (including now)? Sex Assigned at Date Recorded Female 12/23/2021 4:18 AM CDT documented as of this encounter Last Filed Vital Signs Vital Sign Reading Time Taken Comments Blood Pressure 120/69 12/03/2018 11:10 AM CDT Pulse 63 12/03/2018 10:35 AM CDT Temperature - - Respiratory Rate 15 12/03/2018 11:10 AM CDT Oxygen Saturation 100% 12/03/2018 11:10 AM CDT Inhaled Oxygen Concentration - - [...] Take 1 tablet by 0 06/13/2017 05/31/20 84-ngllm-G-biot-zinc mouth daily. (DIALYVITE) [id number] db-du-rnb-mg tablet ciprofloxacin (CIPRO) Take 1 tablet by [...] documented as of this encounter Procedure Notes Mango Echols M.D. - 12/03/2018 11:36 AM CDT PATIENT DISPOSITION Return to Outpatient Unit for recovery. Discharge patient when discharge criteria met. POST-PROCEDURE DIAGNOSIS Left Brachiobasilic Dialysis Fistula PROCEDURE PERFORMED AND DESCRIPTION LUE Fistulagram and angioplasty of Venous Outflow with improved lumen diameter. PROCEDURE DETAILS See Radiology Report SPECIMENS REMOVED None FINDINGS See radiology report. PRIMARY PROCEDURALIST Dr. Monreal ASSISTANTS Dr. Echols COMPLICATIONS None. DRAINS None. IMPLANTS None. ANESTHESIA Moderate Sedation. FLUIDS See nursing report. ESTIMATED BLOOD LOSS <5ml CURRENT MEDICATIONS No Medication Changes FOLLOW-UP LETTER None. MAY RETURN TO WORK Not applicable PATIENT INSTRUCTIONS For your next scheduled appointment documented in this encounter Plan of Treatment Upcoming Encounters Date Type Specialty Care Team Description 06/01/2022 Telemedicine Pharmacy An Nicholas APRN, C.N.P., D.N.P., M.S.N. [address] [place] [phone] (Wo rk) 07/31/2022 Lab Laboratory Medicine Tony Rubalcava M. B., Sydnie, Mukund [address] [place] [phone] (Wo rk) 07/31/2022 Lab Laboratory Medicine Tony Rubalcava M. B., Sydnie, Mukund [address] [place] [phone] (Wo rk) 07/31/2022 Office Visit Transplant Tony Rubalcava M.B., ChBurke, Mukund [address] [place] [address] [phone] (Wo rk) 07/31/2022 Appointment Radiology Tony Rubalcava M.B., Sydnie, MDebra [address] [place] [address] [phone] (Nicolas wen) 08/01/2022 Office Visit Transplant Tony Rubalcava M.B., Sydnie, MDebra [address] [place] [address] [phone] (Nicolas wen) 08/01/2022 Clinical Support Transplant Tony Rubalcava M.B., Mukund Otoole [address] [place], [place] [phone] (Wo rk) documented as of this encounter Procedures Procedure Name Priority Date/Time Associated Comments Diagnosis IR DIALYSIS RAD - Routine 12/03/2018 11:25 Complication Results fo r FISTULAGRAM LEFT (most inpatients AM CDT Dialysis Fistula thi s procedure and all Subsequent are in the outpatients) Chronic Kidney results Disease Stage 5 section. Glomerular Filtration Rate Less Than 15 (HCC) [...] Impressions 12/03/2018 4:34 PM CDT IMPRESSION: Successful DIGITAL TRAFFIC COORDINATOR of the AV anastomosis. EP Narrative 12/03/2018 [...] outflow vein towards the artery. A 5 Cymraes adam th was placed. The anastomosis was [...] permanent image was crea rebecca and stored. Procedure Note Shlomo Monreal M.D. [...] outflow vein towards the artery. A 5 Cymraes adam th was placed. The anastomosis was [...] permanent image was cregrant fernandez and stored. IMPRESSION: Successful DIGITAL TRAFFIC COORDINATOR of the AV hernesto stomosis. EP Steve Martínez Jr., D.O. IMEdinson IR PROCEDURES documented in this encounter Visit Diagnoses Diagnosis Complication Dialysis Fistula Subsequent Chronic Kidney Disease Stage 5 Glomerula r Filtration Rate Less Than 15 (HCC) documented in this encounter Administered Medications Inactive Administered Medications - up to 3 most recent administrations Medication Order MAR Action Action Date Dose Rate Site fentaNYL injection 25 mcg Given 12/03/2018 11:04 AM CDT 25 mcg (SUBLIMAZE) 25 mcg, intravenous, Every 2 min PRN, sedation, or pain before and during sedation procedure, Starting on Sun12/03/18 at 0913, Intraprocedure (RAD), Administer over 1 minute immediately prior to the procedure. May repeat every 2 minutes to a maximum of 200 mcg, until pain score of 3 or less, or until the patient meets the pain comfort goal. Do not give if respiratory rate is less than 8 breaths/minute Given 12/03/2018 10:56 AM CDT 25 mcg Given 12/03/2018 10:49 AM CDT 25 mcg flumazenil injection 0.2 mg (ROMAZICON) 0.2 mg, intravenous, Once as needed, rev ersal, Starting on Sun12/03/18 at 0913, For 1 dose, Intraprocedure (RAD), Administer once if patient has a RASS score of -4, -5 and has a respiratory rate less than 8 breaths/minute. iohexol 300 mg iodine/mL solution (OMNIP AQUE) Given 12/03/2018 11:14 AM 120 mL Code/trauma/sedation medication, Starting on CDT Sun12/03/18 at 1114 lidocaine-sodium bicarbonate 1%-8.4% inj ection Given 12/03/2018 11:14 AM CDT 2 mL infiltration, Code/trauma/sedation medication, Starting on Sun12/03/18 at 1114 midazolam (PF) injection 0.5 mg (VERSED) Given 12/03/2018 11:04 AM CDT 0.5 mg 0.5 mg, intravenous, Every 2 min PRN, sedation, RASS -1, Starting on Sun12/03/18 at 0913, Intraprocedure (RAD), May repeat every 2 minutes for a maximum of 5 mg. Do not give if respiratory rate is less than 8 breaths/minute. Given 12/03/2018 10:56 AM CDT 0.5 mg Given 12/03/2018 10:49 AM CDT 0.5 mg NaCl 0.9% infusion New Bag 12/03/2018 10:28 AM CDT 20 mL/hr 20 mL/hr 20 mL/hr, intravenous, Once as needed, to keep vein open, Starting on Sun12/03/18 at 0913, For 1 dose, Intraprocedure (RAD) naloxone injection 0.2 mg (NARCAN) 0.2 mg, intravenous, Once as needed, respiratory depre ssion, Starting on Sun12/03/18 at 0913, For 1 dose, Intraproced ure (RAD), Administer once if patient has a RASS score of -4, -5 and has a respiratory rate less t simpson 8 breaths/minute. documented in this encounter Active and Recently Administered Medications Times are shown in CDT. PRN Medication Order 12/01/2018 12/02/2018 12/03/2018 fentaNYL injection 25 mcg (SUBLIMAZE) 1028 (Given - Provider: Comfort Murcia RDaviN.)1032 (Given - Provider: Ann VacaN.)1037 (Given - Provider: Maddie Vaca.N.)1049 (Given - Provider: Comfort Murcia R.N.)1056 (Given - Provider: Comfort Murcia R.N.) 25 mcg, intravenous, Every 2 min PRN, se dation, or pain before and during sedation procedure, Starting Sun12/03/18 at 0913, Intraprocedure (RAD), Administer over 1 minute immediately prior to the proced 1104 (Given - Provider: Comfort Murcia R.N.) ure. May repeat every 2 minutes to a max imum of 200 mcg, until pain score of 3 or less, or until the patient meets the pain comfort goal. Do not give if respiratory rate is less than 8 breaths/minute flumazenil injection 0.2 mg (ROMAZICON) 0.2 mg, intravenous, Once as needed, rev ersal, Starting Sun12/03/18 at 09, For 1 dose, Intraprocedure (RAD), Administer once if patient has a RASS score of -4, -5 and has a respiratory rate less than 8 breaths/minute. iohexol 300 mg iodine/mL solution (OMNIPAQUE) (COMPLETED) 1114 (Given - Provider: Shlomo Monreal M.D.) Code/trauma/sedation medication, Starting on Sun12/03/18 at 1114 lidocaine-sodium bicarbonate 1%-8.4% injection (COMPLETED) 1114 (Given - Provider: Shlomo Monreal M.D.) infiltration, Code/trauma/sedation medication, Starting 12/03 at 1114 midazolam (PF) injection 0.5 mg (VERSED) 1028 (Given - Provider: Comfort Murcia R.N.)1032 (Given - Provider: Ann VacaN.)1037 (Given - Provider: Ann VacaN.)1049 (Given - Provider: Ann VacaN.)1056 (Given - Provider: Ann VacaN.) 0.5 mg, intravenous, Every 2 min PRN, se dation, RASS -1, Starting Sun12/03/18 at 09, Intraprocedure (RAD), May repeat every 2 minutes for a maximum of 5 mg. Do not give if respiratory rate is less than 8 breaths/minute. 1104 (Given - Provider: Ann VacaN.) NaCl 0.9% infusion (COMPLETED) 1 028 (New Bag - Provider: Ann VacaNDavi)1113 (Stopped - Provider: Ann VacaN.) 20 mL/hr, intravenous, at 20 mL/hr, Once as needed, to keep vein open, Starting Sun12/03/18 at 09, For 1 dose, Intraprocedure (RAD) naloxone injection 0.2 mg (NARCAN) 0.2 mg, intravenous, Once as needed, res piratory depression, Starting Sun12/03/18 at 0913, For 1 dose, Intraprocedure (RAD), Administer once if patient has a RASS score of -4, -5 and has a respiratory rate less than 8 breaths/minute. 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
--- OUTSIDE RECORDS SUMMARY | 2022-05-25 13:27 | XMS_ITS | Encounter Summary ---
:1960 Author Organization [facility] Address [address] [place] [address] Care Team Providers Name Role Phone Unavailable Primary Care Provider Unavailable Encounter Details Date Type Department Care Team Description 11/29/2018 Clinical Communication [facility].-C., M.S. Transplantation and [address] [place] [address] in [facility] [address] [place] [address] [place], [place] (Work) [address] [phone] Social History Tobacco Use Types Packs/Day Years [...] How often do you attend denominational or episcopal 1 to 4 times per [...] or slept in a halfway (including now)? Sex Assigned at Date Recorded Female 12/23/2021 4:18 AM CDT documented as of this encounter Plan of Treatment Upcoming Encounters Date Type Specialty Care Team Description 06/01/2022 Telemedicine Pharmacy An Nicholas APRN C.N.P., D.N.P., M.S.N. [address] [place] [address] 55 [phone] (Nicolas rk) 07/31/2022 Lab Laboratory Medicine Tony Rubalcava M. B., Sydnie, MDebra [address] [place] [address] 55 [phone] (Wo rk) 07/31/2022 Lab Laboratory Medicine Tony Rubalcava M. B., ChBurke, MDebra [address] [place] [address] 55 [phone] (Wo rk) 07/31/2022 Office Visit Transplant Tony Rubalcava M.B., ChBurke, MDebra [address] [place] [address] 55 [phone] (Wo behzad) 07/31/2022 Appointment Radiology Tony Rubalcava M.B., Sydnie, MDebra [address] [place] [address] 55 [phone] (Wo behzad) 08/01/2022 Office Visit Transplant Tony Rubalcava M.B., Mukund Otoole [address] [place], [place] 55 [phone] (Wo rk) 08/01/2022 Clinical Support Transplant Tony Rubalcava M.B., Mukund Otoole [address] [place], [place] 55 [phone] (Wo rk) documented as of this encounter Results HLA Class II SAB Antibody Screen (01/01/2019 5:45 AM CDT) [facility] Method Time Signature Class II SAB Positive Not Applicable 01/06/2019 [facility] Overall 9:18 AM CDT [facility] Class II SAB 37 01/06/2019 [facility] cPRA 9:18 AM CDT [facility] Comment: ----ADDITIONAL INFORMATION---- This PRA is a [facility] ue Typing Laboratory calculated PRA. PRA is based on the antigen frequency of the Tissue Typing patient a nd donor population. ??PRA reflects all antibodie s with a normalized value (MFI) above 300. SAB DRB1 Specificity NONE 01/06/2019 9:18 AM CDT [facility] PUS SAB [id number] Specificity NONE 01/06/2019 9:18 A M CDT [facility] PUS SAB DQB1 Specificity see below 01/06/2019 9:18 AM CDT [facility] PUS Comment: 2[38463] Format: Serologic equivalent/abbreviated specificity [Normalized Value] shown in decreasing o rder. Note: A serologic equivalent/abbreviated specifi city displayed multiple times could indicate different alleles. SAB DPB1 Specificity NONE 01/06/2019 9:18 AM CDT [facility] Comment: ----ADDITIONAL INFORMATION---- Method: [facility] Performing Laboratory CLIA# [id number] Specimen Anatomical Collection Method Collection Time Receive d Time (Source) Location / / Volume Laterality Blood (Blood, 01/01/2019 5:45 AM 01/03/20 19 Venous) CDT 11:13 AM CDT Soraya Lu P.A.-C., M.S. LAB HLA ORDERABLES Performing Organization Address City/State/ZIP Code Phon e Number [facility] - [address] [place], [place] [address] [facility] HLA Class I SAB Antibody Screen (01/01/2019 5:45 AM CDT) [facility] Method Time Signature Class I SAB Positive Not Applicable 01/06/2019 [facility] Overall 9:14 AM CDT LABORATORIES - Result [facility] Class I SAB 84 01/06/2019 [facility] cPRA 9:14 AM CDT LABORATORIES [facility] Comment: ----ADDITIONAL INFORMATION---- This PRA is a [facility] ue Typing Laboratory calculated PRA. PRA is based on the antigen frequency of the Tissue Typing patient a nd donor population. ??PRA reflects all antibodie s with a normalized value (MFI) above 300. SAB A Specificity see below 01/06/2019 9:14 AM CDT [facility] Comment: 32[3737], 31[3057], 23[1884], 25[1878], 24[1599], 24[1529], 30[1527], 30[1091] Format: Serologic equivalent/abbreviated specificity [Normalized Value] shown in decreasing o rder. Note: A serologic equivalent/abbreviated specifi city displayed multiple times could indicate different alleles. SAB B Specificity see below 01/06/2019 9:14 AM CDT [facility] Comment: 51[8881], 51[5467], 77[3966], 49[3907], 52[3689], 75[3563], 78[3460], 38[3078], 63[3031], 59[2998], 53[2475], 58[2270], 57[2242], 57[2147], 71[981], 75[854], 27 [829], 13[778], 37[709], 44[625], 44[578], 47[357], 35[3 22], 13[312] Format: Serologic equivalent/abbreviated specificity [Normalized Value] shown in decreasing o rder. Note: A serologic equivalent/abbreviated specifi city displayed multiple times could indicate different alleles. SAB C Specificity NONE 01/06/2019 9:14 AM CDT [facility] Comment: ----ADDITIONAL INFORMATION---- Method: [facility] Performing Laboratory CLIA# [id number] Specimen Anatomical Collection Method Collection Time Receive d Time (Source) Location / / Volume Laterality Blood (Blood, 01/01/2019 5:45 AM 01/03/20 19 Venous) CDT 11:13 AM CDT Soraya Lu P.A.-C., M.S. 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
--- OUTSIDE RECORDS SUMMARY | 2022-05-25 13:27 | XMS_ITS | Encounter Summary ---
:1960 Author Organization [facility] Address [address] [place] [address] Care Team Providers Name Role Phone Unavailable Primary Care Provider Unavailable Reason for Visit Reason Onset Date Comments telephone 12/18/2018 Encounter Details Date Type Department Care Team Description 12/18/2018 Clinical Communication Aba Pérez telephone [facility] K, R.N., Transplantation and C.C.T.C. Clinical Regeneration in [address] [place] [address] [place] [address] [place] [address] [phone] Social History Tobacco Use Types Packs/Day Years [...] How often do you attend gnosticism or yazdanism 1 to 4 times per [...] Encounter - Shira Díaz R.N., C.C.T.C. - 12/18/2018 11:44 AM CDT I returned call to patient. She remains active on waiting list. However, she is due to return for waitlist re-evaluation. She is willing to schedule. Type of Appointment: Waitlist re-eval On Dialysis: Yes SPK: No Chemdep: No Mood Consult: Yes, anxiety Cardiology Consult: Yes, and DSE Extra Consults: NA Requested Provider: NA Patient Not Available to Come: Cannot come from February 11 through all of February. Angiogram: na Colonoscopy: 09-14-17 at [facility] Pap: 08-22-17 at [facility] Mammo: 09-11-18 Previous Tx W/U: na Telephone Encounter - Janis Das - 12/18/2018 11:04 AM CDT Pt calling to check on her status documented in this encounter Plan of Treatment Upcoming Encounters Date Type Specialty Care Team Description 06/01/2022 Telemedicine Pharmacy An Nicholas APRN, C.N.P., D.N.P., M.S.N. [address] [place] [address] 55 [phone] (Wo rk) 07/31/2022 Lab Laboratory Medicine oTny Rubalcava M. B., Sydnie, Mukund [address] [place] [address] 55 [phone] (Wo rk) 07/31/2022 Lab Laboratory Medicine Tony Rubalcava M. B., Sydnie, Mukund [address] [place] [address] 55 [phone] (Wo rk) 07/31/2022 Office Visit Transplant Tony Rubalcava M.B., Sydnie, Mukund [address] [place] [address] [phone] (Wo rk) 07/31/2022 Appointment Radiology Tony Rubalcava M.B., Sydnie, MDebra [address] [place] [address] 55 [phone] (Wo rk) 08/01/2022 Office Visit Transplant Tony Rubalcava M.B., Sydnie, MDebra [address] [place] [address] 55 [phone] (Wo rk) 08/01/2022 Clinical Support Transplant Tony Rubalcava M.B., Sydnie, MDebra [address] [place] [address] 55 [phone] (Wo rk) documented as of this encounter Visit Diagnoses Not on filedocumented in this encounter Additional Health Concerns Assessment Noted Time PHQ-9 Depression Total Score: 3 09/13/2017 7:47 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
--- OUTSIDE RECORDS SUMMARY | 2022-05-25 13:27 | XMS_ITS | Encounter Summary ---
:1960 Author Organization [facility] Address [address] [place] [address] Care Team Providers Name Role Phone Unavailable Primary Care Provider Unavailable Encounter Details Date Type Department Care Team Description 10/28/2018 Orders Only Division of Nephrology and Neymar Martínez Hypertension in [place], ., D.O. [place] [address] [facility] [address] [place] [address] [phone] (Wo rk) Social History Tobacco Use Types [...] How often do you attend confucianism or gnosticist 1 to 4 times per [...] Specialty Care Team Description 06/01/2022 Telemedicine Pharmacy nA Nicholas APRN C.N.P., D.N.P., M.S.N. [address] [place] [address] 55 [phone] (Wo rk) 07/31/2022 Lab Laboratory Medicine Tony Rubalcava M. B., Sydnie, MDebra [address] [place] [address] 55 [phone] (Wo rk) 07/31/2022 Lab Laboratory Medicine Tony Rubalcava M. B., Sydnie, MDebra [address] [place] [address] 55 [phone] (Wo rk) 07/31/2022 Office Visit Transplant Tony Rubalcava M.B., ChBurke, MDebra [address] [place] [address] 55 [phone] (Wo rk) 07/31/2022 Appointment Radiology Tony Rubalcava M.B., Sydnie, MDebra [address] [place] [address] 55 [phone] (Wo rk) 08/01/2022 Office Visit Transplant Tony Rubalcava M.B., Sydnie, MDebra [address] [place] [address] 55 [phone] (Wo rk) 08/01/2022 Clinical Support Transplant Tony Rubalcava M.B., Sydnie, Shashi. 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
--- OUTSIDE RECORDS SUMMARY | 2022-05-25 13:27 | XMS_ITS | Encounter Summary ---
:1960 Author Organization [facility] Address [address] [place] [address] Care Team Providers Name Role Phone Unavailable Primary Care Provider Unavailable Encounter Details Date Type Department Care Team Description 10/28/2018 Documentation Division of Nephrology and Josr Martínez Hypertension in [place], ., D.O. [place] [address] [facility] 200 [place] [address] [phone] (Wo rk) Social History Tobacco Use Types [...] How often do you attend yarsani or mandaeism 1 to 4 times per [...] Progress Notes Steve Martínez Jr., D.O. 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 She needs something stronger than tylenol. Her cannulation went well Sat., and today as well. Her hand is warm. The pain is 8-9/10 despite tylenol ES 2 q 4 hr. I suggested lidoderm patch as well to the area, and that we should get an US and have her seen by our team to ensure no vascular compromise or leak from the intervention. documented in this encounter Plan of Treatment Upcoming Encounters Date Type Specialty Care Team Description 06/01/2022 Telemedicine Pharmacy An Nicholas APRN, C.N.P., D.N.P., M.S.N. 200 [place], [place] 55 [phone] (Nicolas wen) 07/31/2022 Lab Laboratory Medicine Tony Rubalcava M. B., Ch.B., M.D. [address] [place] [address] 55 [phone] (Wo behzad) 07/31/2022 Lab Laboratory Medicine Tony Rubalcava M. B., Ch.B., M.D. [address] [place] [address] 55 [phone] (Nicolas wen) 07/31/2022 Office Visit Transplant Tony Rubalcava M.B., Sydnie, Mukund [address] [place] [address] 55 [phone] (Wo rk) 07/31/2022 Appointment Radiology Tony Rubalcava M.B., Sydnie, Mukund [address] [place] [address] 55 [phone] (Wo rk) 08/01/2022 Office Visit Transplant Tony Rubalcava M.B., Sydnie, Mukund [address] [place] [address] 55 [phone] (Wo rk) 08/01/2022 Clinical Support Transplant Tony Rubalcava M.B., Sydnie, Mukund [address] [place] [address] 55 [phone] (Wo rk) documented as of this encounter Visit Diagnoses Not on filedocumented in this encounter Additional Health Concerns Assessment Noted Time PHQ-9 Depression Total Score: 3 09/13/2017 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
--- OUTSIDE RECORDS SUMMARY | 2022-05-25 13:27 | XMS_ITS | Encounter Summary ---
:1960 Author Organization [facility] Address [address] [place] [address] Care Team Providers Name Role Phone Unavailable Primary Care Provider Unavailable Encounter Details Date Type Department Care Team Description 12/23/2018 Orders Only Division of Nephrology Steve Martínez omplication Dialysis Fistula Subsequent (Primary Dx); and Hypertension in Frcaisco Garcia D.O. Chronic Kidney Disease Stage 5 Glomerula r Filtration Rate Less Than 15 (HCC) [employer], [place] [address] [facility] [address] [place] [address] [phone] Social History Tobacco Use Types Packs/Day Years [...] How often do you attend buddhism or judaism 1 to 4 times per [...] Nicholas APRN C.N.P., D.N.P., M.S.N. [address] [place] [address] 55 [phone] (Nicolas wen) 07/31/2022 Lab Laboratory Medicine Tony Rubalcava M. B., ChBurke, M.D. [address] [place] [address] 55 [phone] (Nicolas wen) 07/31/2022 Lab Laboratory Medicine Tnoy Rubalcava M. B., ChDaviBDavi, MDaviD. [address] [place] [address] 55 [phone] (Nicolas wen) 07/31/2022 Office Visit Transplant oTny Rubalcava M.B., ChDaviBDavi, M.D. [address] [place] [address] 55 [phone] (Nicolas wen) 07/31/2022 Appointment Radiology Tony Rubalcava M.B., ChDaviBDavi, MDaviD. [address] [place] [address] 55 [phone] (Nicolas wen) 08/01/2022 Office Visit Transplant Tony Rubalcava M.B., Mukund Otoole [address] [place], [place] 55 [phone] (Wo behzad) 08/01/2022 Clinical Support Transplant Tony Rubalcava M.B., Mukund Otoole [address] [place], [place] 55 [phone] (Nicolas wen) documented as of this encounter Visit Diagnoses Diagnosis Complication Dialysis Fistula Subsequent - Primary Chronic Kidney Disease Stage 5 Glomerula r Filtration Rate Less Than 15 (HCC) documented in this encounter Additional Health Concerns Assessment Noted Time PHQ-9 Depression Total Score: 3 09/13/2017 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
--- OUTSIDE RECORDS SUMMARY | 2022-05-25 13:27 | XMS_ITS | Encounter Summary ---
:1960 Author Organization [facility] Address [address] [place] [address] Care Team Providers Name Role Phone Unavailable Primary Care Provider Unavailable Encounter Details Date Type Department Care Team Description 12/23/2018 Orders Only Division of Nephrology Steve Martínez omplication Dialysis Fistula Subsequent (Primary Dx); and Hypertension in [place] Garcia D.O. Chronic Kidney Disease Stage 5 Glomerula r Filtration Rate Less Than 15 (HCC) [place], [place] [address] [facility] [address] [place] [address] [phone] Social History Tobacco Use Types Packs/Day Years [...] How often do you attend restorationism or moravian 1 to 4 times per [...] An Nicholas APRN C.N.P., D.N.P., M.S.N. [address] [place] [address] 55 [phone] (Nicolas wen) 07/31/2022 Lab Laboratory Medicine Tony Rubalcava M. B., ChBurke, M.D. [address] [place] [address] 55 [phone] (Nicolas wen) 07/31/2022 Lab Laboratory Medicine Tony Rubalcava M. B., ChDaviBDavi, MDaviD. [address] [place] [address] 55 [phone] (Nicolas wen) 07/31/2022 Office Visit Transplant Tony Rubalcava M.B., ChDaviBDavi, M.D. [address] [place] [address] 55 [phone] (Nicolas wen) 07/31/2022 Appointment Radiology Tony Rubalcava M.B., ChDaviBDavi, MDaviD. [address] [place] [address] 55 [phone] (Nicolas wen) 08/01/2022 Office Visit Transplant Tony Rubalcava M.B., Mukund Otoole [address] [place], [place] 55 [phone] (Wo behzad) 08/01/2022 Clinical Support Transplant Tony Rubalcava M.B., Mukund Otoole [address] [place], [place] 55 [phone] (Nicolas wen) documented as of this encounter Visit Diagnoses Diagnosis Complication Dialysis Fistula Subsequent - Primary Chronic Kidney Disease Stage 5 Glomerula r Filtration Rate Less Than 15 (HCC) documented in this encounter Additional Health Concerns Assessment Noted Time PHQ-9 Depression Total Score: 3 09/13/2017 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
--- OUTSIDE RECORDS SUMMARY | 2022-05-25 13:27 | XMS_ITS | Encounter Summary ---
:1960 Author Organization [facility] Address [address] [place] [address] Care Team Providers Name Role Phone Unavailable Primary Care Provider Unavailable Reason for Visit Reason Onset Date Comments orders for urine locally 12/06/2018 Encounter Details Date Type Department Care Team Description 12/06/2018 Clinical Communication Department of douglas Spear for urine Urology in Geraldo Domínguez M.D. locally [place], [address] [place] [address] [place] [address] [place], [place] [phone] (Work) [phone] Social History Tobacco Use Types Packs/Day Years [...] How often do you attend cheondoism or shinto 1 to 4 times per [...] or slept in a prison (including now)? Sex Assigned at Date Recorded Female 12/23/2021 4:18 AM CDT documented as of this encounter Miscellaneous Notes Telephone Encounter - Ranjana Bui - 12/19/2018 8:58 AM CDT Faxed to [phone]. Telephone Encounter - Ranjana Bui - 12/16/2018 10:28 AM CDT ARIANNAI. Telephone Encounter - Julita Bernal - 12/16/2018 10:22 AM CDT Patient calls. She is to have her urines done at [facility]. She called them but they do not have the orders. Please FAX to: [facility] Lab [phone] FAX [phone] phone # If questions, please call her at [phone]. Julita Cuenca Telephone Encounter - Sherry Rosas - 12/06/2018 8:48 AM CDT I received a call from Julita Fisher NP (on behalf of the patient) regarding patient's stent exchanges. Patient comes in every three months for her stent exchanges and had to cancel the last appointment that was on 12/02 as she had dialysis that day. Patient is asking if her urines can be done locally prior to coming for the stent exchange and also if the listing visit and stent exchange can be done in one visit? It is a hardship for her to make multiple trips and she has dialysis on Mondays and Wednesdays. uJlita Fisher asks that you send her an inthePlatformet message letting her know. Patient also requests acall back with appointment information. Let me know if you need me to call or send the messages and fax urine orders. documented in this encounter Plan of Treatment Upcoming Encounters Date Type Specialty Care Team Description 06/01/2022 Telemedicine Pharmacy An Nicholas APRN, C.N.P., D.N.P., M.S.N. [address] [place] [address] 55 905-0001 (Wo rk) 07/31/2022 Lab Laboratory Medicine Tony Rubalcava M. B., Sydnie, MElvia. [address] [place] [address] 55 905-0001 (Wo rk) 07/31/2022 Lab Laboratory Medicine Tony Rubalcava M. B., ChBurke, MDebra [address] [place] [address] 55 905-0001 (Wo rk) 07/31/2022 Office Visit Transplant Tony Rubalcava M.B., ChDaviBDavi, M.Whitney [address] [place] [address] 55 905-0001 (Wo rk) 07/31/2022 Appointment Radiology Tony Rubalcava M.B., ChBurke, MDebra [address] [place] [address] 55 905-0001 (Wo rk) 08/01/2022 Office Visit Transplant Tony Rubalcava M.B.Sydnie M.D. 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
--- OUTSIDE RECORDS SUMMARY | 2022-05-25 13:27 | XMS_ITS | Encounter Summary ---
:1960 Author Organization [facility] Address 200 [place] [address] Care Team Providers Name Role Phone Unavailable Primary Care Provider Unavailable Encounter Details Date Type Department Care Team Description 11/18/2018 Orders Only Department of Urology Geraldo Spear eteral Stent Exchange in Catrachita Hernandez M.D. (Primary Dx) [address] 200 [place] [address] [phone] Social History Tobacco Use Types Packs/Day Years [...] How often do you attend orthodox or church 1 to 4 times per [...] Nicholas APRN C.N.P., D.N.P., M.S.N. [address] [place] [address] 55 [phone] (Wo rk) 07/31/2022 Lab Laboratory Medicine Tony Rubalcava M. B., Sydnie, MDebra [address] [place] [address] 55 905-0001 (Wo rk) 07/31/2022 Lab Laboratory Medicine Tony Rubalcava M. B., Sydnie, Mukund [address] [place] [address] 55 905-0001 (Wo rk) 07/31/2022 Office Visit Transplant Tony Rubalcava M.B., Sydnie, MDebra [address] [place] [address] 55 905-0001 (Wo rk) 07/31/2022 Appointment Radiology Tony Rubalcava M.B., Sydnie, Mukund [address] [place] [address] 55 905-0001 (Wo rk) 08/01/2022 Office Visit Transplant Tony Rubalcava M.B., Sydnie, Mukund [address] [place] [address] 55 905-0001 (Wo rk) 08/01/2022 Clinical Support Transplant Tony Rubalcava M.B., Sydnie, Shashi. 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
--- OUTSIDE RECORDS SUMMARY | 2022-05-25 13:27 | XMS_ITS | Encounter Summary ---
:1960 Author Organization [facility] Address [address] [place] [address] Care Team Providers Name Role Phone Unavailable Primary Care Provider Unavailable Encounter Details Date Type Department Care Team Description 12/23/2018 Documentation Division of Nephrology and Josr Martínez Hypertension in [employer], ., D.O. [place] [address] [facility] [address] [place] [phone] (Wo rk) Social History Tobacco Use Types [...] Progress Notes Steve Martínez Jr., D.O. - 12/23/2018 6:21 AM CDT Phone call [phone] I was notified by [place] assistant manager retail her L AVF is clotted. SHe is a MWF patient, has residual function, but minimal recently. She has had 2 recent interventions. There were concerns about her access last week, poor bruit, higher venous pressures. I have placed orders for L fistulogram, K, she is not on anticoagulants she is NPO. SHe may need a TDC, and access surgery to consider an AVF on the contralateral side. documented in this encounter Plan of Treatment Upcoming Encounters Date Type Specialty Care Team Description 06/01/2022 Telemedicine Pharmacy An Nicholas APRN, C.N.P., D.N.P., M.S.N. [address] [place] [address] [phone] (Nicolas wen) 07/31/2022 Lab Laboratory Medicine Tony Rubalcava M. B., Ch.B., M.Michelle. [address] [place] [address] [phone] (Nicolas wen) 07/31/2022 Lab Laboratory Medicine Tony Rubalcava M. B., Ch.B., M.Michelle. [address] [place] [address] [phone] (Nicolas wen) 07/31/2022 Office Visit Transplant Tony Rubalcava M.B., Sydnie, Mukund [address] [place] [address] [phone] (Wo rk) 07/31/2022 Appointment Radiology Tony Rubalcava M.B., Mukund [place] [address] [place] [address] [phone] (Wo rk) 08/01/2022 Office Visit Transplant Tony Rubalcava M.B., Sydnie, Mukund [address] [place] [address] [phone] (Wo rk) 08/01/2022 Clinical Support Transplant Tony Rubalcava M.B., Sydnie, Mukund [address] [place] [address] [phone] (Wo rk) documented as of this encounter Visit Diagnoses Not on filedocumented in this encounter Additional Health Concerns Assessment Noted Time PHQ-9 Depression Total Score: 3 09/13/2017 7:47 AM [employer]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
--- OUTSIDE RECORDS SUMMARY | 2022-05-25 13:27 | XMS_ITS | Encounter Summary ---
:1960 Author Organization [facility] Address [address] [place] [id number] Care Team Providers Name Role Phone Unavailable Primary Care Provider Unavailable Encounter Details Date Type Department Care Team Description 12/23/2018 Hospital Encounter Department of Josr Martínez Jr., D.ODavi [address] [place] [phone] Chronic Kidney Disease Stage 5 Glomerula r Filtration Rate Less Than 15 (HCC); Radiology in An Nichols M.D. [address] [place] [phone] Complication Dialysis Fistula Subsequent Fouzia Hernandez Alicia, M.D. [id number] [place] [phone] Social History Tobacco Use Types Packs/Day Years [...] How often do you attend holiness or cheondoism 1 to 4 times per [...] Sign Reading Time Taken Comments Blood Pressure 143/78 12/23/2018 1:35 PM CDT Pulse - - Temperature - - Respiratory Rate 14 12/23/2018 1:08 PM CDT Oxygen Saturation 94% 12/23/2018 1:36 PM CDT Inhaled Oxygen Concentration - - [...] 1 tablet by 0 06/13/2017 05/31/20 19 [id number]-zinc mouth daily. (DIALYVITE) [phone] ao-ey-cso-mg tablet ciprofloxacin (CIPRO) Take 1 tablet by [...] documented as of this encounter Procedure Notes An Nichols M.D. - 12/23/2018 2:53 PM CDT PATIENT DISPOSITION Discharge to home., Return to Outpatient Unit for recovery. Discharge patient when discharge criteria met. POST-PROCEDURE DIAGNOSIS Declot left brachiobasilic fistula PROCEDURE PERFORMED AND DESCRIPTION As above PROCEDURE DETAILS See Radiology Report SPECIMENS REMOVED None FINDINGS Had to replace pursestring near elbow. May be removed at dialysis tomorrow. Fistula widely patent. PRIMARY PROCEDURALIST An Nichols M.D. ASSISTANTS Fouzia COMPLICATIONS None DRAINS See dictation IMPLANTS See dictation ANESTHESIA Moderate Sedation FLUIDS None ESTIMATED BLOOD LOSS <5ml CURRENT MEDICATIONS No Medication Changes FOLLOW-UP LETTER None MAY RETURN TO WORK Not applicable PATIENT INSTRUCTIONS No return appointment. May use fistula. Emili Fragoso M.D. - 12/23/2018 1:41 PM CDT PATIENT DISPOSITION Return to Outpatient Unit for recovery. Discharge patient when discharge criteria met. POST-PROCEDURE DIAGNOSIS Left brachiobasilic dialysis fistula PROCEDURE PERFORMED AND DESCRIPTION Successful left brachiobasilic dialysis fistula declot and angioplasty across the basilic vein stent. Palpable thrill restored in the fistula. PROCEDURE DETAILS See Radiology Report SPECIMENS REMOVED None FINDINGS As expected. See radiology report. PRIMARY PROCEDURALIST Simone Fragoso COMPLICATIONS None. DRAINS None. IMPLANTS None. ANESTHESIA Moderate Sedation. FLUIDS None. ESTIMATED BLOOD LOSS <100 mL CURRENT MEDICATIONS No Medication Changes FOLLOW-UP LETTER None. MAY RETURN TO WORK Not applicable PATIENT INSTRUCTIONS No return appointment documented in this encounter Plan of Treatment Upcoming Encounters Date Type Specialty Care Team Description 06/01/2022 Telemedicine Pharmacy An Nicholas APRN, C.N.P., D.N.P., M.S.N. [address] [place] [address] [phone] (Nicolas wen) 07/31/2022 Lab Laboratory Medicine Tony Rubalcava M. B., ChBurke, MElvia. [address] [place] [address] [phone] (Nicolas wen) 07/31/2022 Lab Laboratory Medicine Tony Rubalcava M. B., ChBurke, MElvia. [address] [place] [address] [phone] (Nicolas wen) 07/31/2022 Office Visit Transplant Tony Rubalcava M.B., Sydnie, MElvia. [address] [place] [address] [phone] (Nicolas wen) 07/31/2022 Appointment Radiology Tony Rubalcava M.B., Mukund [place] [address] [place], [place] [phone] (Wo rk) 08/01/2022 Office Visit Transplant Tony Rubalcava M.B., Mukund [place] [address] [place], [place] [phone] (Wo rk) 08/01/2022 Clinical Support Transplant Tony Rubalcava M.B., Mukund [place] [address] [place], [place] [phone] (Wo rk) documented as of this encounter Procedures Procedure Name Priority Date/Time Associated Comments Diagnosis IR DIALYSIS RAD - Routine 12/23/2018 1:44 Chronic Kidney Results f or this FISTULAGRAM LEFT (most inpatients PM CDT Disease Stage 5 proc edure are in and all Glomerular the results outpatients) Filtration Rate section. Less Than 15 (HCC) Complication Dialysis Fistula Subsequent ADULT OXYGEN Routine 12/23/2018 12:09 THERAPY PM CDT documented in this encounter Results IR Dialysis Fistulagram Left (12/23/2018 1:44 PM CDT) Anatomical Region Laterality Modality Body, Vascular Interventional RST LOS, Vascular Left X-Ray Angiography Interventional ARZ LOS, Vascular Interventional FLA LOS Specimen (Source) Anatomical Collection Method Collection Time Re ceived Time Location / / Volume Laterality 12/23/2018 2:42 PM CDT Impressions 12/23/2018 3:56 PM CDT IMPRESSION: Declot of left brachiobasilic fistula with resolution of stenosis of the central end of the previously placed stent at the venous anastomosis with 8 mm balloon. Fistula may be used. Patient returned to the postprocedure area after discharge due to bleeding from the peripheral of the two access sites. Additional manual pressure was held and hemostasis achieved without complication. EP Narrative 12/23/2018 3:56 PM CDT EXAM: IR DIALYSIS FISTULAGRAM LEFT CLINICAL HISTORY: Thrombosed left brachi obasilic fistula. Concerns about hypotension during dialysis runs. TECHNIQUE: Patient was placed in a supin e position. The left upper extremity was prepped and draped in the normal sterile fashion. Using standard micropuncture technique and 1% lidocaine for local ane sthesia with direct ultrasound guidance, access was gained into the thrombosed le ft brachiobasilic fistula pointed toward the venous outflow. An image was saved. Guidewire was advanced to the left subclavian vein and a central venogram w as performed. This demonstrates patency of the central veins. Through a 7 Swedish sheath, the large amount of thrombus within the aneurysmal segment of the fis ihsan was macerated with an 8 mm balloon. 4 mg of tPA in 4 mL was then instilled i nto the fistula with manual occlusion of the inflow brachial artery. Then, access was gained into the fistula pointed toward the arterial inflow and another 7 Swedish sheath was placed. Using a push-pull technique with 8 mm and 6 mm b alloons, the thrombus was cleared from the fistula and antegrade flow was azar red. There was still a large amount of clot within the aneurysmal portion of th e fistula and, therefore, the venous side sheath was upsized to 10 Swedish and a 9 Swedish MPA catheter was used to aspirate a large volume of clot. A 10 mm balloon was then used to clear the clot from the fistula. Mild stenosis of the c entral end of the previously placed venous anastomotic stent has resolved af ter 8 mm angioplasty. Completion fistulogram demonstrates patent inflow b rachial artery, outflow brachial artery, arteriovenous anastomosis, basilic vein and central veins. The thrill in the fistula is nonpulsatile and robust. Punc ture sites were closed with pursestring sutures which were removed at 30 minutes post procedure without complication. PREPROCEDURE: Patient seen, evaluated, h istory [...] procedure. The total intra-procedural sedation time was: 89 m inutes. Procedure Note An Nichols M.D. - 12/23/2018Form atting of this note might be different from the original. EXAM: IR DIALYSIS FISTULAGRAM LEFT CLINICAL HISTORY: Thrombosed left brachi obasilic fistula. Concerns about hypotension during dialysis runs. TECHNIQUE: Patient was placed in a supin e position. The left upper extremity was prepped and draped in the normal sterile fashion. Using standard micropuncture technique and 1% lidocaine for local ane sthesia with direct ultrasound guidance, access was gained into the thrombosed le ft brachiobasilic fistula pointed toward the venous outflow. An image was saved. Guidewire was advanced to the left subclavian vein and a central venogram w as performed. This demonstrates patency of the central veins. Through a 7 Swedish sheath, the large amount of thrombus within the aneurysmal segment of the fis ihsan was macerated with an 8 mm balloon. 4 mg of tPA in 4 mL was then instilled i nto the fistula with manual occlusion of the inflow brachial artery. Then, access was gained into the fistula pointed toward the arterial inflow and another 7 Swedish sheath was placed. Using a push-pull technique with 8 mm and 6 mm b alloons, the thrombus was cleared from the fistula and antegrade flow was azar red. There was still a large amount of clot within the aneurysmal portion of th e fistula and, therefore, the venous side sheath was upsized to 10 Swedish and a 9 Swedish MPA catheter was used to aspirate a large volume of clot. A 10 mm balloon was then used to clear the clot from the fistula. Mild stenosis of the c entral end of the previously placed venous anastomotic stent has resolved af ter 8 mm angioplasty. Completion fistulogram demonstrates patent inflow b rachial artery, outflow brachial artery, arteriovenous anastomosis, basilic vein and central veins. The thrill in the fistula is nonpulsatile and robust. Punc ture sites were closed with pursestring sutures which were removed at 30 minutes post procedure without complication. PREPROCEDURE: Patient seen, evaluated, h istory [...] procedure. The total intra-procedural sedation time was: 89 m inutes. IMPRESSION: Declot of left brachiobasili c fistula with resolution of stenosis of the central end of the previously placed stent at the venous anastomosis with 8 mm balloon. Fistula may be used. Patient returned to the postprocedure area after discharge due to bleeding from the peripheral of the two access sites. Additional manual pressure was held and hemostasis achieved without complication. EP Whitney Rasheed Jr.ODavi [facility] IR PROCEDURES documented in this encounter Visit Diagnoses Diagnosis Chronic Kidney Disease Stage 5 Glomerula r Filtration Rate Less Than 15 (HCC) Complication Dialysis Fistula Subsequent documented in this encounter Administered Medications Inactive Administered Medications - up to 3 most recent administrations Medication Order MAR Action Action Date Dose Rate Site acetaminophen tablet 1,000 mg Given 12/23/2018 1:56 PM CDT 1,000 mg (TYLENOL) 1,000 mg, oral, Once, On Sun12/23/18 at 1400, For 1 dose alteplase injection (CATHFLO ACTIVASE) Given 12/23/2018 12:25 PM CDT 4 mg Code/trauma/sedation medication, Starting on Sun12/23/18 at 1225 fentaNYL injection 25 mcg (SUBLIMAZE) Given 12/23/2018 1:25 PM CDT 25 mcg 25 mcg, intravenous, Every 2 min PRN, sedation, or pain before and during sedation procedure, Starting on Sun12/23/18 at 1209, Intraprocedure (RAD), Administer over 1 minute immediately prior to the procedure. May repeat every 2 minutes to a maximum of 200 mcg, until pain score of 3 or less, or until the patient meets the pain comfort goal. Do not give if respiratory rate is less than 8 breaths/minute Given 12/23/2018 1:16 PM CDT 25 mcg Given 12/23/2018 1:15 PM CDT 25 mcg flumazenil injection 0.2 mg (ROMAZICON) 0.2 mg, intravenous, Once as needed, rev ersal, Starting on Sun12/23/18 at 1209, For 1 dose, Intraprocedure (RAD), Administer once if patient has a RASS score of -4, -5 and has a respiratory rate less than 8 breaths/minute. heparin (porcine) 1,000 unit/mL injectio n Given 12/23/2018 1:10 PM 1,000 Units/mL Code/trauma/sedation medication, Starting CDT on Sun12/23/18 at 1224 Given 12/23/2018 12:30 PM CDT 1,000 Units Given 12/23/2018 12:24 PM CDT 2,000 Units iohexol 300 mg iodine/mL solution (OMNIP AQUE) Given 12/23/2018 1:35 PM CDT 120 mL Code/trauma/sedation medication, Starting on Sun12/23/18 at 1335 lactated ringers 20 mL/hr, intravenous, Continuous, Start ing on Sun12/23/18 at 1215, Intraprocedure (RAD) lidocaine-sodium bicarbonate 1%-8.4% inj ection Given 12/23/2018 12:09 PM CDT 6 mL infiltration, Code/trauma/sedation medication, Starting on Sun12/23/18 at 1209 midazolam (PF) injection 0.25 mg (VERSED ) 0.25 mg, intravenous, Every 2 min PRN, s edation, RASS -2, Starting on Sun12/23/18 at 1209, Intraprocedure (RAD), May repeat e very 2 minutes to a maximum of 5 mg. Do not give if respiratory rate is less than 8 breaths/minute . midazolam (PF) injection 0.5 mg (VERSED) Given 12/23/2018 12:15 PM CDT 0.5 mg 0.5 mg, intravenous, Once as needed, sedation, Starting on Sun12/23/18 at 1209, For 1 dose, Intraprocedure (RAD) midazolam (PF) injection 0.5 mg (VERSED) Given 12/23/2018 1:13 PM CDT 0.5 mg 0.5 mg, intravenous, Every 2 min PRN, sedation, RASS -1, Starting on Sun12/23/18 at 1209, Intraprocedure (RAD), May repeat every 2 minutes for a maximum of 5 mg. Do not give if respiratory rate is less than 8 breaths/minute. Given 12/23/2018 12:38 PM CDT 0.5 mg Given 12/23/2018 12:29 PM CDT 0.5 mg midazolam (PF) injection 1 mg (VERSED) Given 12/23/2018 12:32 PM CDT 1 mg 1 mg, intravenous, Every 2 min PRN, sedation, RASS 0, Starting on Sun12/23/18 at 1209, Intraprocedure (RAD), May repeat every 2 minutes for a maximum of 5 mg. Do not give if respiratory rate is less than 8 breaths/minute. Given 12/23/2018 12:05 PM CDT 1 mg naloxone injection 0.2 mg (NARCAN) 0.2 mg, intravenous, Once as needed, res piratory depression, Starting on Sun12/23/18 at 1209, For 1 dose, Intraprocedure (RAD ), Administer once if patient has a RASS score of -4, -5 and has a respiratory rate less than 8 breaths/minute. sodium chloride 0.9 % injection 10 mL 10 mL, intravenous, As needed, line care, Starting on Sun12/23/18 at 1209, Intraprocedure (RAD), Peripheral Intrave nous Catheter and Rapid Infusion Catheter, prior to blood sampling, post blood transfusion or pos t blood sampling sodium chloride 0.9 % injection 3 mL 3 mL, intravenous, As needed, line care, Starting on M on 12/23/18 at 1209, Intraprocedure (RAD), Prior to and following infusion and between multiple consecutive infusions: sodium chloride 0.9 % injection sodium chloride 0.9 % injection 3 mL 3 mL, intravenous, Every 12 hours scheduled, First dos e on Sun12/23/18 at 2100, Intraprocedure (RAD), Peripheral Intrave nous Catheter and Rapid Infusion Catheter, when no infusion to maintain patency documented in this encounter Active and Recently Administered Medications Times are shown in CDT. Scheduled Medication Order 12/21/2018 12/22/2018 12/23/2018 acetaminophen tablet 1,000 mg (TYLENOL) (COMPLETED) 1356 (Given - Provider: Sam Breaux R.N.) 1,000 mg, oral, Once, On Sun12/23/18 at 1400, For 1 dose sodium chloride 0.9 % injection 3 mL 3 mL, intravenous, Every 12 hours schedu led, First dose on Sun12/23/18 at 2100, Intraprocedure (RAD), Peripheral Intravenous Catheter and Rapid Infusion Catheter, when no infusion to maintain patency Continuous Medication Order 12/21/2018 12/22/2018 12/23/2018 lactated ringers 1215 (Due) 20 mL/hr, intravenous, at 20 mL/hr, Cont inuous, Starting Sun12/23/18 at 1215, Intraprocedure (RAD) PRN Medication Order 12/21/2018 12/22/2018 12/23/2018 alteplase injection (CATHFLO ACTIVASE) (COMPLETED) 1225 (Given - Provider: An Nichols M.D.) Code/trauma/sedation medication, Starting on Sun12/23/18 at 1225 fentaNYL injection 25 mcg (SUBLIMAZE) 1215 (Given - Provider: Cesar Ybarra R.N.)1224 (Given - Provider: Cesar Ybarra R.N.)1229 (Given - Provider: Cesar Ybarra R.N.)1234 (Given - Provider: Cesar Ybarra R.N.)1247 (Given - Pr ovider: Cesar Ybarra R.N.) 25 mcg, intravenous, Every 2 min PRN, se dation, or pain before and during sedation procedure, Starting Sun12/23/18 at 1209, Intraprocedure (RAD), Administer over 1 minute immediately prior to the procedu 1257 (Given - Provider: Cesar Ybarra R.N.)1302 (Given - Provider: Cesar Ybarra R.N.)1315 (Given - Provider: Cesar Ybarra R.N.)1316 (Given - Provider: Cesar Ybarra R.N.)1325 (Given - Provider: Cesar Ybarra R.N.) re. May repeat every 2 minutes to a maxi mum of 200 mcg, until pain score of 3 or less, or until the patient meets the pain comfort goal. Do not give if respiratory rate is less than 8 breaths/minute flumazenil injection 0.2 mg (ROMAZICON) 0.2 mg, intravenous, Once as needed, rev ersal, Starting Sun12/23/18 at 1209, For 1 dose, Intraprocedure (RAD), Administer once if patient has a RASS score of -4, -5 and has a respiratory rate less than 8 breaths/minute. heparin (porcine) 1,000 unit/mL injection (COMPLETED) 1224 (Given - Provider: Cesar Ybarra R.N.)1230 (Given - Provider: Cesar Ybarra R.N.)1310 (Given - Provider: Cesar Ybarra R.N.) Code/trauma/sedation medication, Starting on Sun12/23/18 at 1224 iohexol 300 mg iodine/mL solution (OMNIPAQUE) (COMPLETED) 1335 (Given - Provider: An Nichols M.D.) Code/trauma/sedation medication, Starting on Sun12/23/18 at 1335 lidocaine-sodium bicarbonate 1%-8.4% injection (COMPLETED) 1209 (Given - Provider: An Nichols M.D.) infiltration, Code/trauma/sedation medication, Starting Sun at 1209 midazolam (PF) injection 0.25 mg (VERSED) 0.25 mg, intravenous, Every 2 min PRN, s edation, RASS -2, Starting Sun12/23/18 at 1209, Intraprocedure (RAD), May repeat every 2 minutes to a maximum of 5 mg. Do not give if respiratory rate is less than 8 breaths/minute. midazolam (PF) injection 0.5 mg (VERSED) (COMPLETED) 1215 (Given - Provider: Cesar Ybarra R.N.) 0.5 mg, intravenous, Once as needed, sed ation, Starting Sun12/23/18 at 1209, For 1 dose, Intraprocedure (RAD) midazolam (PF) injection 0.5 mg (VERSED) 1213 (Given - Provider: Cesar Ybarra R.N.)1229 (Given - Provider: Cesar Ybarra R.N.)1238 (Given - Provider: Cesar Ybarra R.N.)1313 (Given - Provider: Cesar Ybarra R.N.) 0.5 mg, intravenous, Every 2 min PRN, se dation, RASS -1, Starting 12/23/18 at 1209, Intraprocedure (RAD), May repeat every 2 minutes for a maximum of 5 mg. Do not give if respiratory rate is less than 8 breaths/minute. midazolam (PF) injection 1 mg (VERSED) 1205 (Given - Provider: Cesar Ybarra R.N.)1232 (Given - Provider: Cesar Ybarra R.N.) 1 mg, intravenous, Every 2 min PRN, dustin tion, RASS 0, Starting 12/23/18 at 1209, Intraprocedure (RAD), May repeat every 2 minutes for a maximum of 5 mg. Do not give if respiratory rate is less than 8 breaths/minute. naloxone injection 0.2 mg (NARCAN) 0.2 mg, intravenous, Once as needed, res piratory depression, Starting 12/23/18 at 1209, For 1 dose, Intraprocedure (RAD), Administer once if patient has a RASS score of -4, -5 and has a respiratory rate less than 8 breaths/minute. sodium chloride 0.9 % injection 10 mL 10 mL, intravenous, As needed, line care , Starting 12/23/18 at 1209, Intraprocedure (RAD), Peripheral Intravenous Catheter and Rapid Infusion Catheter, prior to blood sampling, post blood transfusion or post blood sampling sodium chloride 0.9 % injection 3 mL 3 mL, intravenous, As needed, line care, Starting 12/23/18 at 1209, Intraprocedure (RAD), Prior to and following infusion and between multiple consecutive infusions: sodium chloride 0.9 % injection documented in this encounter Additional Health Concerns Assessment Noted Time PHQ-9 Depression Total Score: 3 09/13/2017 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
--- OUTSIDE RECORDS SUMMARY | 2022-05-25 13:27 | XMS_ITS | Encounter Summary ---
:1960 Author Organization [facility] Address [address] [place] [address] Care Team Providers Name Role Phone Unavailable Primary Care Provider Unavailable Encounter Details Date Type Department Care Team Description 12/18/2018 Orders Only Department of Urology Geraldo Spear In fection Urinary Tract in Catrachita Hernandez M.D. (Primary Dx) [address] [place] [phone] Social History Tobacco Use Types Packs/Day Years [...] How often do you attend orthodoxy or pentecostalism 1 to 4 times per [...] Nicholas APRN C.N.P., D.N.P., M.S.N. [address] [place] [address] [phone] (Wo rk) 07/31/2022 Lab Laboratory Medicine Tony Rubalcava M. B., Sydnie, MDebra [address] [place] [address] [phone] (Wo rk) 07/31/2022 Lab Laboratory Medicine Tony Rubalcava M. B., Sydnie, Mukund [address] [place] [address] [phone] (Wo rk) 07/31/2022 Office Visit Transplant Tony Rubalcava M.B., Sydnie, MDebra [address] [place] [address] [phone] (Wo rk) 07/31/2022 Appointment Radiology Tony Rubalcava M.B., Sydnie, Mukund [address] [place] [address] [phone] (Wo rk) 08/01/2022 Office Visit Transplant Tony Rubalcava M.B., Sydnie, Mukund [address] [place] [address] [phone] (Wo rk) 08/01/2022 Clinical Support Transplant Tony Rubalcava M.B., Sydnie, Shashi. 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
--- OUTSIDE RECORDS SUMMARY | 2022-05-25 13:27 | XMS_ITS | Encounter Summary ---
:1960 Author Organization [facility] Address [address] [place] [address] Care Team Providers Name Role Phone Unavailable Primary Care Provider Unavailable Encounter Details Date Type Department Care Team Description 12/23/2018 Documentation Division of Nephrology and Clara Clarke R.N. Hypertension in [place], [facility] 1 [place], [place] 200 [facility] [address] [place] [address] [phone] Social History Tobacco Use Types Packs/Day Years [...] or slept in a usp (including now)? Sex Assigned at Date Recorded Female 12/23/2021 4:18 AM CDT documented as of this encounter Progress Notes Clara Clarke R.N. - 12/23/2018 7:[address] Martínez, [phone] CHIEF COMPLAINT/PURPOSE OF VISIT REASON FOR REFERRAL: Clotted [place] arterial venous fistula, declot and fistulogram with FURNITURE POLISHER HISTORY OF PRESENT ILLNESS ACCESS: ??[place] AV Fistula ?Date placed - 01/09/17 ?Provider - ??Guilherme ?? LOCATION OF ACCESS:??Left Brachial??Basilic? PERTINENT PROCEDURAL HISTORY: Patient referred for declot/ fistulogram and angioplasty as indicated.She is being referred due to access being clotted. This morning there was no thrill or bruit present. Patient stated that her arm had hurt all night. Staff attempted one needle with no flash returned. Her last fistulogram was on 12/03/18. She has had 5 fistulograms and 1 declot on this fistula. She??dialyzes at the [facility]??clinic on a Sunday, Sunday and Sunday schedule. ?? DIABETES: No ?? ANTICOAGULATION: ??Takes no anticoagulation medications. ?? ALLERGIES/ADVERSE REACTIONS Allergies Allergen Reactions ??? Epoetin Rolando GI intolerance ERYTHROPOIETIN- vomiting ??? Latex Other (see comments) Eczema IMPRESSION/REPORT/PLAN SPECIFIC PATIENT INSTRUCTIONS: Patient instructed to report to the [facility], Howard Iglesias on 12/23/18 at You must have a traffic worker to drive you home due to the sedation you will receive. You cannot drive for 24 hours after sedation. The patient is NPO at home waiting for a call. Post Access Instructions: On Sunday patient is to report to the [facility] dialysis unit for dialysis. Appointment scheduled via Rema Giron at Interventional Radiology. documented in this encounter Plan of Treatment Upcoming Encounters Date Type Specialty Care Team Description 06/01/2022 Telemedicine Pharmacy An Nicholas APRN C.N.P., D.N.P., M.S.N. [address] [place] [address] 55 [phone] (Wo rk) 07/31/2022 Lab Laboratory Medicine Tony Rubalcava M. B., Sydnie, Mukund [address] [place] [address] 55 [phone] (Wo rk) 07/31/2022 Lab Laboratory Medicine Tony Rubalcava M. B., Sydnie, Mukund [address] [place] [address] 55 [phone] (Wo rk) 07/31/2022 Office Visit Transplant Tony Rubalcava M.B., Sydnie, Mukund [address] [place] [address] 55 [phone] (Wo rk) 07/31/2022 Appointment Radiology Tony Rubalcava M.B., Sydnie, Mukund [address] [place] [address] 55 [phone] (Wo rk) 08/01/2022 Office Visit Transplant Tony Rubalcava M.B., Sydnie, Mukund [address] [place] [address] 55 [phone] (Wo rk) 08/01/2022 Clinical Support Transplant Tony Rubalcava M.B., Sydnie, Mukund [address] [place] [address] [phone] (Wo rk) documented as of this encounter Visit Diagnoses Not on filedocumented in this encounter Additional Health Concerns Assessment Noted Time PHQ-9 Depression Total Score: 3 09/13/2017 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
--- OUTSIDE RECORDS SUMMARY | 2022-05-25 13:27 | XMS_ITS | Encounter Summary ---
:1960 Author Organization [facility] Address [address] [place] [address] Care Team Providers Name Role Phone Unavailable Primary Care Provider Unavailable Encounter Details Date Type Department Care Team Description 12/23/2018 Orders Only Division of Nephrology Steve Martínez Kidney Disease Stage 5 Glomerular Filtration Rate Less Than 15 (HCC) (Primary Dx); and Hypertension in Fracisco Garcia D.O. Complication Dialysis Fistula Subsequent [place], [place] [address] [facility] [address] [place] [address] [phone] Social History Tobacco Use Types Packs/Day Years [...] How often do you attend caodaism or pentecostal 1 to 4 times per [...] or slept in a longterm (including now)? Sex Assigned at Date Recorded Female 12/23/2021 4:18 AM CDT documented as of this encounter Plan of Treatment Upcoming Encounters Date Type Specialty Care Team Description 06/01/2022 Telemedicine Pharmacy An Nicholas APRN C.N.P., D.N.P., M.S.N. [address] [place] [address] 55 [phone] (Nicolas wen) 07/31/2022 Lab Laboratory Medicine Tony Rubalcava M. B., ChDaviBDavi, M.D. [address] [place] [address] 55 [phone] (Nicolas wen) 07/31/2022 Lab Laboratory Medicine Tony Rubalcava M. B., Ch.BDavi, M.D. [address] [place] [address] 55 [phone] (Nicolas wen) 07/31/2022 Office Visit Transplant Tony Rubalcava M.B., ChDaviB., M.D. [address] [place] [address] 55 [phone] (Nicolas wen) 07/31/2022 Appointment Radiology Tony Rubalcava M.B., ChDaviBDavi, MDaviD. [address] [place] [address] 55 [phone] (Nicolas wen) 08/01/2022 Office Visit Transplant Tony Rubalcava M.B., Mukund [place] [address] [place], [place] 55 [phone] (Wo rk) 08/01/2022 Clinical Support Transplant Tony Rubalcava M.B., Mukund [place] [address] [place], [place] 55 [phone] (Wo behzad) documented as of this encounter Results IR [...] of the central veins. Through a 7 Macedonian sheath, the large amount of thrombus within the aneurysmal segment of the fis ihsan was macerated with an 8 mm balloon. 4 mg of tPA in 4 mL was then instilled i nto the fistula with manual occlusion of the inflow brachial artery. Then, access was gained into the fistula pointed toward the arterial inflow and another 7 Macedonian sheath was placed. Using a push-pull technique with 8 mm and 6 mm b alloons, the thrombus was cleared from the fistula and antegrade flow was azar red. There was still a large amount of clot within the aneurysmal portion of th e fistula and, therefore, the venous side sheath was upsized to 10 Macedonian and a 9 Macedonian MPA catheter was used to aspirate a [...] of the central veins. Through a 7 Macedonian sheath, the large amount of thrombus within the aneurysmal segment of the fis ihsan was macerated with an 8 mm balloon. 4 mg of tPA in 4 mL was then instilled i nto the fistula with manual occlusion of the inflow brachial artery. Then, access was gained into the fistula pointed toward the arterial inflow and another 7 Macedonian sheath was placed. Using a push-pull technique with 8 mm and 6 mm b alloons, the thrombus was cleared from the fistula and antegrade flow was azar red. There was still a large amount of clot within the aneurysmal portion of th e fistula and, therefore, the venous side sheath was upsized to 10 Macedonian and a 9 Macedonian MPA catheter was used to aspirate a [...] held and hemostasis achieved without complication. EP Steve Martínez Jr., D.O. IMG IR PROCEDURES Potassium (12/23/2018 10:41 AM CDT) athologist Signature Potassium, S 4.6 3.6 - 5.2 12/23/2018 [facility] mmol/L 11:56 AM CDT LABORATORIES - [facility] Specimen Anatomical Collection Method Collection Time Receive d Time (Source) Location / / Volume Laterality Blood (Blood, 12/23/2018 10:41 12/23/2018 Venous) AM CDT 10:56 AM CDT Steve Martínez Jr., D.O. LAB BLOOD ADD-ON Performing Organization Address City/State/ZIP Code Phon e Number 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
--- OUTSIDE RECORDS SUMMARY | 2022-05-25 13:28 | XMS_ITS | Encounter Summary ---
:1960 Author Organization [facility] Address [address] [place] [address] Care Team Providers Name Role Phone Unavailable Primary Care Provider Unavailable Encounter Details Date Type Department Care Team Description 09/03/2018 Hospital Encounter Department of Paz Diehl Laboratory Medicine S, P.A.-C. Ureteropelvic and Pathology, [address] [place] [address] in [facility] [address] [place] [phone] [place] [address] (Work) [place], [place] [phone] (Fax) [phone] Social History Tobacco Use Types Packs/Day Years [...] How often do you attend nondenominational or presybeterian 1 to 4 times per [...] Take 1 tablet by 0 06/13/2017 05/31/20 15-tpivc-K-biot-zinc mouth daily. (DIALYVITE) [id number] kv-nd-qsv-mg tablet ciprofloxacin (CIPRO) Take 1 tablet by [...] Left times a day. For 14 days rosuvastatin Take 1 tablet by 0 09/14/20172018 (for_CRESTOR) 5 mg mouth daily. tablet sevelamer (RENVELA) 800 Take 1 tablet (800 [...] Nicholas APRN, C.N.P., D.N.P., M.S.N. [address] [place] [address] 55 [phone] (Wo rk) 07/31/2022 Lab Laboratory Medicine Tony Rubalcava M. B., Ch.B., M.D. [address] [place] [address] [phone] (Wo rk) 07/31/2022 Lab Laboratory Medicine Tony Rubalcava M. B., Ch.B., M.Michelle. [address] [place] [address] 55 [phone] (Wo rk) 07/31/2022 Office Visit Transplant Tony Rubalcava M.B., Ch.B., MDebra [address] [place] [address] [phone] (Wo rk) 07/31/2022 Appointment Radiology Tony Rubalcava M.B., Ch.B., MDebra [address] [place] [address] 55 [phone] (Wo rk) 08/01/2022 Office Visit Transplant Tony Rubalcava M.B., Mukund [place] [address] [place], [place] 55 [phone] (Wo rk) 08/01/2022 Clinical Support Transplant Tony Rubalcava M.B., Mukund [place] [address] [place], [place] 55 [phone] (Wo rk) documented as of this encounter Procedures Procedure Name Priority Date/Time Associated Diagnosis Comme nts MICROSCOPIC MANUAL Routine 09/03/2018 2:43 PM Res ults for this LICENSED NUCLEAR CONTROL ROOM OPERATOR procedure are i n the results section. URINALYSIS WITH Routine 09/03/2018 2:43 PM Obstruction Result s for this MICROSCOPIC LICENSED NUCLEAR CONTROL ROOM OPERATOR Ureteropelvic procedure are in the results section. documented in this encounter Results (ABNORMAL) Microscopic Manual (09/03/2018 2:43 PM LICENSED NUCLEAR CONTROL ROOM OPERATOR) Patholo gist Method Time Signature Microscopy Abnormal 09/03/2018 [facility] 4:14 PM LICENSED NUCLEAR CONTROL ROOM OPERATOR LABORATORIES [facility] RBC 11-20 (A) <3 /hpf 09/03/2018 [facility] 4:14 PM LICENSED NUCLEAR CONTROL ROOM OPERATOR LAB[facility]ATORIES [facility] Dysmorphic RBC <25 <25 % 09/03/2018 [facility] 4:14 PM LICENSED NUCLEAR CONTROL ROOM OPERATOR [facility] WBC >100 (A) /hpf 09/03/2018 [facility] 4:14 PM LICENSED NUCLEAR CONTROL ROOM OPERATOR LAB[facility]ATORIES [facility] Comment: ----REFERENCE VALUE---- 1-3 ??(Males) 1-10 (Females) Squamous Epithelial 21-30 /hpf 09/03/2018 4:14 PM [facility] Cells, U LICENSED NUCLEAR CONTROL ROOM OPERATOR LABORATORIES [facility] S Bacteria Present (A) 09/03/2018 4:14 PM [facility] LICENSED NUCLEAR CONTROL ROOM OPERATOR [facility] Specimen Anatomical Collection Method Collection Time Receive d Time (Source) Location / / Volume Laterality Urine 09/03/2018 2:43 PM 9 2:43 LICENSED NUCLEAR CONTROL ROOM OPERATOR PM LICENSED NUCLEAR CONTROL ROOM OPERATOR Paz S Diehl P.A.-C. LAB URINE ORDERABLES Performing Organization Address City/State/ZIP Code Phon e Number [facility]IES - [address] [place], [place] [address] [facility] (ABNORMAL) Urinalysis with Microscopic (09/03/2018 2:43 PM LICENSED NUCLEAR CONTROL ROOM OPERATOR) [facility] Method Time Signature Source Midstream 09/03/2018 [facility] 2:43 PM LICENSED NUCLEAR CONTROL ROOM OPERATOR [facility] Appearance Normal Normal 09/03/2018 [facility] 4:32 PM [facility] Osmolality, U 390 150 - 1150 09/03/2018 [facility] mOsm/kg 3:46 PM [facility] pH, U 7.4 4.5 - 8.0 09/03/2018 [facility] 3:46 PM [facility] Comment: ----ADDITIONAL INFORMATION---- This test was developed and its performa nce characteristics determined by [facility] in a manner co nsistent with CLIA requirements. This test has not bee n cleared or approved by the U.S. Food and Drug Admin istration. Glucose 4 0 - 15 mg/dL 09/03/2018 4:32 PM [facility] Protein, U 227 (H) <26 mg/dL 09/03/2018 4:59 PM [facility] Comment: ----ADDITIONAL INFORMATION---- On 02/13/2017 the total protein assay me thod changed resulting in approximately a 15% increase in prote in values. Protein/Osmolality 5.82 (H) <0.42 Ratio 09/03/2018 4:59 PM [facility] Comment: ----ADDITIONAL INFORMATION---- On 02/13/2017 the total protein assay me thod changed resulting in approximately a 15% increase in prote in values. Predicted 24 Hr 3311 mg/24 h 09/03/2018 4:59 PM [facility] Protein [facility] S Predicted Range [id number] mg/24 h 09/03/2018 4:59 PM [facility] Hemoglobin, QL Large (A) Negative 09/03/2018 4:14 PM [facility] Specimen Anatomical Collection Method Collection Time Receive d Time (Source) Location / / Volume Laterality Urine (Urine, 09/03/2018 2:43 PM 09/03/19 19 2:43 Voided) LICENSED NUCLEAR CONTROL ROOM OPERATOR PM LICENSED NUCLEAR CONTROL ROOM OPERATOR Paz Diehl P.A.-C. LAB URINE ORDERABLES Performing Organization Address City/State/ZIP Code Phon e Number [facility] - [address] [place] [phone] [facility] documented in this encounter Visit Diagnoses Diagnosis Obstruction Ureteropelvic documented in this encounter Additional Health Concerns Assessment Noted Time PHQ-9 Depression Total Score: 3 09/13/2017 7:47 AM LICENSED NUCLEAR CONTROL ROOM 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
--- OUTSIDE RECORDS SUMMARY | 2022-05-25 13:28 | XMS_ITS | Encounter Summary ---
:1960 Author Organization [facility] Address [address] [place] [address] Care Team Providers Name Role Phone Unavailable Primary Care Provider Unavailable Encounter Details Date Type Department Care Team Description 10/25/2018 Documentation Division of Nephrology and Debora Regalado R.N. Hypertension in [place], [facility] 2001 [address] [place], [place] 200 [facility] [address] [place] [address] [phone] Social History Tobacco Use Types Packs/Day Years [...] How often do you attend mu-ism or sikh 1 to 4 times per [...] as of this encounter Progress Notes Debora Diehl R.N. - 10/25/2018 2:[address] 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 Vanegas ?? LOCATION OF ACCESS: Left Brachial Basilic PERTINENT PROCEDURAL HISTORY: Patient referred for declot/ fistulogram and angioplasty as indicated.She is being referred due to access being clotted. Her last fistulogram was on 07/02/18. She has had4 fistulograms on this fistula. She dialyzes at the [facility] on a Sunday, Sunday and Sunday schedule. DIABETES: No ANTICOAGULATION: ??Takes no anticoagulation medications. IMPRESSION/REPORT/PLAN SPECIFIC PATIENT INSTRUCTIONS: Patient instructed to report to the [facility], Gurpreet Howard Estrella-Michelle on 10/25/18 at 10:30 am. You must have a tax audit manager to drive you home due to [...] to three fourths of the day in [place] for this procedure. There is generally some waiting involved prior to the procedure. Post Access Instructions: The plan was for the patient to dialyze back at her home unit tomorrow on 10/26/18 if the declot was successful. Patient states that she prefers to dialyze at her home unit. Appointment scheduled via Interventional Radiology. 10/28/18 Addendum: Patient will be having another fistulogram procedure per request of the IR provider who did the fistulogram/declot on 10/25/18. Patient instructed to report to the [facility], Howard Iglesias on 11/28/18 at 10:00. The same instructions written above were shared with the patient in regards to this upcoming fistulogram on 11/28/18. documented in this encounter Plan of Treatment Upcoming Encounters Date Type Specialty Care Team Description 06/01/2022 Telemedicine Pharmacy An Nicholas APRN C.N.PDavi, D.N.P., M.S.N. [address] [place] [address] 55 [phone] (Nicolas wen) 07/31/2022 Lab Laboratory Medicine Tony Rubalcava M. B., ChDaviBDavi, M.D. [address] [place] [address] 55 [phone] (Nicolas wen) 07/31/2022 Lab Laboratory Medicine Tony Rubalcava M. B., ChDaviBDavi, M.D. [address] [place] [address] 55 [phone] (Nicolas wen) 07/31/2022 Office Visit Transplant Tony Rubalcava M.B., ChDaviBDavi, M.D. [address] [place] [address] 55 [phone] (Nicolas wen) 07/31/2022 Appointment Radiology Tony Rubalcava M.B., Ch.B., M.D. 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
--- OUTSIDE RECORDS SUMMARY | 2022-05-25 13:28 | XMS_ITS | Encounter Summary ---
:1960 Author Organization [facility] Address [address] [place] [address] Care Team Providers Name Role Phone Unavailable Primary Care Provider Unavailable Encounter Details Date Type Department Care Team Description 08/26/2018 Orders Only Division of Nephrology Steve Martínez ypbonillaension And and Hypertension in C Brody Garcia Chronic Kidney Disease [place], [place] [address] [facility] Stage 1 To 4 (Primary [address] [place], [place]x) [place] [address] [phone] Social History Tobacco Use Types Packs/Day Years [...] How often do you attend jainism or uatsdin 1 to 4 times per [...] slept in a senior living (including now)? Sex Assigned at Date Recorded Female 12/23/2021 4:18 AM CDT documented as of this encounter Plan of Treatment Upcoming Encounters Date Type Specialty Care Team Description 06/01/2022 Telemedicine Pharmacy An Nicholas APRN C.N.P., D.N.P., M.S.N. [address] [place] [address] [phone] (Wo rk) 07/31/2022 Lab Laboratory Medicine Tony Rubalcava M. B., Sydnie, MDebra [address] [place] [address] 55 [phone] (Wo rk) 07/31/2022 Lab Laboratory Medicine Tony Rubalcava M. B., ChBurke, MDebra [address] [place] [address] 55 [phone] (Wo rk) 07/31/2022 Office Visit Transplant Tony Rubalcava M.B., ChBurke, MDebra [address] [place] [address] 55 [phone] (Wo rk) 07/31/2022 Appointment Radiology Tony Rubalcava M.B., Sydnie, MDebra [address] [place] [address] 55 [phone] (Wo rk) 08/01/2022 Office Visit Transplant Tony Rubalcava M.B.Sydnie M.D. [address] [place], [place] 55 [phone] (Wo behzad) 08/01/2022 Clinical Support Transplant Tony Rubalcava M.B., Mukund [place] [address] [place], [place] 55 [phone] (iNcolas wen) documented as of this encounter Visit Diagnoses Diagnosis Hypertension And Chronic Kidney Disease Stage 1 To 4 - Primary documented in this encounter Additional Health Concerns Assessment Noted Time PHQ-9 Depression Total Score: 3 09/13/2017 7:47 AM CLINICAL ACCOUNT MANAGER documented as of this encounter
--- OUTSIDE RECORDS SUMMARY | 2022-05-25 13:28 | XMS_ITS | Encounter Summary ---
:1960 Author Organization [facility] Address [address] [place] [address] Care Team Providers Name Role Phone Unavailable Primary Care Provider Unavailable Reason for Visit Reason Onset Date Comments Tacrolimus Adjustment Protocol 08/21/2018 Encounter Details Date Type Department Care Team Description 08/21/2018 Clinical Charity Desai [facility] for A, R.N., Adjustment Transplantation and C.C.T.C. Protocol Clinical Regeneration [address] [facility] in [facility] [address] [place] [address] [place], [place] (Work) [phone] Social History Tobacco Use Types Packs/Day Years [...] How often do you attend congregation or mandaeism 1 to 4 times per [...] encounter Miscellaneous Notes Telephone Encounter - Charity Ponce R.N. - 08/21/2018 8:40 AM HARP REPAIRER Repeat tacrolimus level is within target range of 6-8. No dose change recommended. Continue to monitor with routine labs every 3 months. REPAIRER documented in this encounter Plan of Treatment Upcoming Encounters Date Type Specialty Care Team Description 06/01/2022 Telemedicine Pharmacy An Nicholas APRN, C.N.P., D.N.P., M.S.N. [address] [place] [address] [phone] (Wo rk) 07/31/2022 Lab Laboratory Medicine Tony Rubalcava M. B., ChBurke, MElvia. [address] [place] [address] [phone] (Wo rk) 07/31/2022 Lab Laboratory Medicine Tony Rubalcava M. B., ChDaviBDavi, MDebra [address] [place] [address] 55 [phone] (Wo rk) 07/31/2022 Office Visit Transplant Tony Rubalcava M.B., Sydnie, MDebra [address] [place] [address] 55 [phone] (Wo rk) 07/31/2022 Appointment Radiology Tony Rubalcava M.B., Mukund [place] [address] [place] [address] [phone] (Wo rk) 08/01/2022 Office Visit Transplant Tony Rubalcava M.B., Sydnie, Mukund [address] [place] [address] 55 [phone] (Wo rk) 08/01/2022 Clinical Support Transplant Tony Rubalcava M.B., Sydnie, Mukund [address] [place] [address] 55 [phone] (Wo rk) documented as of this encounter Visit Diagnoses Not on filedocumented in this encounter Additional Health Concerns Assessment Noted Time PHQ-9 Depression Total Score: 3 09/13/2017 7:47 AM HARP REPAIRER documented as of this encounter
--- OUTSIDE RECORDS SUMMARY | 2022-05-25 13:28 | XMS_ITS | Encounter Summary ---
:1960 Author Organization [facility] Address [address] [place] [address] Care Team Providers Name Role Phone Unavailable Primary Care Provider Unavailable Encounter Details Date Type Department Care Team Description 10/25/2018 Documentation Division of Nephrology and Josr Martínez Hypertension in [place], ., D.O. [place] [address] [facility] 200 [place] [address] [phone] (Wo rk) Social History Tobacco Use Types [...] How often do you attend holiness or amish 1 to 4 times per [...] or slept in a fdc (including now)? Sex Assigned at Date Recorded Female 12/23/2021 4:18 AM CDT documented as of this encounter Progress Notes Steve Martínez Jr., D.Jhonny. - 10/25/2018 6:31 AM CST Phone note: Received urgent phone call this morning at 6:00 a.m. from the [facility] dialysis unit. Our RN, and to patient care technicians both were unable to appreciate a bruit or a thrill in her left upper extremity fistula. She had undergone successful dialysis on Sunday without any complications, nor post decannulation bleeding or complications. Patient cannot recollect sleeping on her arm or any trauma. She did not have breakfast today. I accept to hold the patient NPO, I am attempting to orchestrate an urgent fistulogram for consideration of declot, and if this is impossible, then to orchestrate further this therapy, including potentially placement of a tunneled dialysis catheter. Optimally we need this declotted, she has an excellent fistula, as documented in June of 2018 during her most recent fistulogram. She is okay for anesthesia. I have advised the patient to wait by her cell phone for a call and contact from our team today. She would benefit from dialysis today if possible, as the weather is definite factor tomorrow, with a adverse set of winter weather approaching. GER REVENUE documented in this encounter Plan of Treatment Upcoming Encounters Date Type Specialty Care Team Description 06/01/2022 Telemedicine Pharmacy An Nicholas APRN, C.N.P., D.N.P., M.S.N. [address] [place] [address] 55 [phone] (Wo rk) 07/31/2022 Lab Laboratory Medicine Tony Rubalcava M. B., Sydnie, Mukund [address] [place] [address] [phone] (Wo rk) 07/31/2022 Lab Laboratory Medicine Tony Rubalcava M. B., ChBurke, Mukund [address] [place] [address] 55 [phone] (Wo rk) 07/31/2022 Office Visit Transplant Tony Rubalcava M.B., Sydnie, Mukund [address] [place] [address] [phone] (Wo rk) 07/31/2022 Appointment Radiology Tony Rubalcava M.B., Sydnie, Mukund [address] [place] [address] [phone] (Wo rk) 08/01/2022 Office Visit Transplant Tony Rubalcava M.B., Sydnie, Mukund [address] [place] [address] [phone] (Wo rk) 08/01/2022 Clinical Support Transplant Tony Rubalcava M.B., Sydnie, Mukund [address] [place] [address] [phone] (Wo rk) documented as of this encounter Visit Diagnoses Not on filedocumented in this encounter Additional Health Concerns Assessment Noted Time PHQ-9 Depression Total Score: 3 09/13/2017 7:47 AM MANAGER REVENUE documented as of this encounter
--- OUTSIDE RECORDS SUMMARY | 2022-05-25 13:28 | XMS_ITS | Encounter Summary ---
:1960 Author Organization [facility] Address [address] [place] [address] Care Team Providers Name Role Phone Unavailable Primary Care Provider Unavailable Reason for Visit Appointment Request (Routine) - Closed Specialty Diagnoses / Procedures Referred By Contact Refer red To Contact Urology Referral ID Status Reason Start Date Expiration Date Visits Requ ested Visits Authorized [id number] Closed 07/18/2018 07/18/2019 1 1 Encounter Details Date Type Department Care Team Description 09/03/2018 Office Visit Department of Urology Paz Diehl O bstruction Ureter in [place], P.A.-C. (Primary Dx) [address] 200 [place] [phone] Social History Tobacco Use Types Packs/Day Years [...] How often do you attend mandaen or christianity 1 to 4 times per [...] or slept in a correction (including now)? Sex Assigned at Date Recorded Female 12/23/2021 4:18 AM CDT documented as of this encounter Progress Notes Paz Diehl P.A.-C. - 09/03/2018 3:00 PM CST SUBJECTIVE CHIEF COMPLAINT/REASON FOR VISIT Patient seen in my calendar. Ureteral obstruction HISTORY OF PRESENT ILLNESS Ms. Wray is a pleasant 58-year-old female here today for listing visit. She is to undergo rightureteral stent exchange September 05, 2018. She underwent cadaveric renal transplant in 2007 at the [facility] due to hypertensive nephrosclerosis. 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 She remains on dialysis. She has been doing well since her last visit. She denies any gross hematuria, dysuria, abdominal or flank pain. She denies any fevers, chills, or urinary tract infections. She states that the stent is at the right length and is not bothersome to her. The following portions of the patient's history were reviewed and updated as appropriate: allergies,current medications, medical history and surgical history. REVIEW OF SYSTEMS The following systems were negative: Constitutional, Skin, Eyes, ENT, CV, Respiratory, GI, , Hematologic, Musculoskeletal, Neuro, Psych PHYSICAL EXAM URO Physical Exam General: Well-appearing, in no acute apparent distress. Neuro: Alert and orientated x3. Psych: Maintained eye contact throughout conversation. Appropriate affect. Skin: No rashes in the areas examined. Eyes: No scleral icterus. Lungs: Normal respiratory effort without shortness of breath. Musculoskeletal: Normal gait noted with ambulation. LABORATORY Urinalysis pending at the time of visit. ASSESSMENT / PLAN #1 Ureteral obstruction #2 Status post renal transplant I had the pleasure of meeting with Ms. Wray in clinic today. We discussed the procedure of the stent exchange in detail. We discussed the risks including but not limited to bleeding, infection, and risk of damage to adjacent tissue. We discussed the risks of anesthesia including heart attack, stroke, blood clots, or . I informed him of the healthcare team, risk of exposure of the healthcareteam, and risk of blood transfusion. She is in understanding of these risks and I have obtained a signed consent form from her. I provided her with antibiotics to start prior to the procedure. Her urinalysis was pending at the time of our visit today. All questions and concerns have been answered at this time. She will call with any further questions. ADDENDUM Urinalysis came back showing greater than 100 white blood cells, 21-30 squamous epithelial cells, 11-20 red blood cells, and bacteria present. This looks to be either contamination or could be from herstent. She has been given antibiotics to start prior to her stent placement. Signed by: Paz Diehl P.A.-C. 09/05/2018 7:26 AM NG FLOOR SUPERVISOR documented in this encounter Plan of Treatment Upcoming Encounters Date Type Specialty Care Team Description 06/01/2022 Telemedicine Pharmacy An Nicholas APRN C.N.P., D.N.P., M.S.N. [address] [place] [address] [phone] (Nicolas wen) 07/31/2022 Lab Laboratory Medicine Tony Rubalcava M. B., Ch.B., MElvia. [address] [place] [address] 55 [phone] (Nicolas wen) 07/31/2022 Lab Laboratory Medicine Tony Rubalcava M. B., ChAlhaji., M.Michelle. [address] [place] [address] 55 [phone] (Nicolas wen) 07/31/2022 Office Visit Transplant Tony Rubalcava M.B., Sydnie, Mukund [address] [place] [address] [phone] (Wo rk) 07/31/2022 Appointment Radiology Tony Rubalcava M.B., Sydnie, Mukund [address] [place] [address] [phone] (Wo rk) 08/01/2022 Office Visit Transplant Tony Rubalcava M.B., Sydnie, Mukund [address] [place] [address] [phone] (Wo rk) 08/01/2022 Clinical Support Transplant Tony Rubalcava M.B., Sydnie, Mukund [address] [place] [address] [phone] (Wo rk) documented as of this encounter Visit Diagnoses Diagnosis Obstruction Ureter - Primary documented in this encounter Additional Health Concerns Assessment Noted Time PHQ-9 Depression Total Score: 3 09/13/2017 7:47 AM GAMING FLOOR SUPERVISOR documented as of this encounter
--- OUTSIDE RECORDS SUMMARY | 2022-05-25 13:28 | XMS_ITS | Encounter Summary ---
:1960 Author Organization [facility] Address [address] [place] [address] Care Team Providers Name Role Phone Unavailable Primary Care Provider Unavailable Encounter Details Date Type Department Care Team Description 09/09/2018 Clinical Communication Mary Goncalves T, P.A.-C. Transplantation and Clinical Regeneration in [place], [place] [address] [place] [address] Social History Tobacco Use Types Packs/Day [...] How often do you attend samaritan or methodist 1 to 4 times per [...] Nicholas APRN, C.N.P., D.N.P., M.S.N. [address] [place] [address] [phone] (Nicolas wen) 07/31/2022 Lab Laboratory Medicine Tony Rubalcava M. B., Sydnie, MElvia. [address] [place] [address] [phone] (Nicolas wen) 07/31/2022 Lab Laboratory Medicine Tony Rubalcava M. B., Sydnie, MDebra [address] [place] [address] [phone] (Nicolas wen) 07/31/2022 Office Visit Transplant Tony Rubalcava M.B., ChBurke, MDebra [address] [place] [address] [phone] (Nicolas wen) 07/31/2022 Appointment Radiology Tony Rubalcava M.B., ChBurke, MElvia. [address] [place] [address] 55 [phone] (Nicolas wen) 08/01/2022 Office Visit Transplant Tony Rubalcava M.B., ChBurke, MDebra [address] [place] [address] [phone] (Nicolas wen) 08/01/2022 Clinical Support Transplant Tony Rubalcava M.B., Mukund Otoole [address] [place], [place] 55 [phone] (Wo rk) documented as of this encounter Results HLA Class II SAB Antibody Screen (09/13/2018 5:30 AM PSYCHIATRIC SOCIAL WORKER) [facility] Method Time Signature Class II SAB Positive Not Applicable 09/17/2018 [facility] Overall 9:39 AM [facility] - Result [facility] Class II SAB 37 09/17/2018 [facility] cPRA 9:39 AM [facility] Comment: ----ADDITIONAL INFORMATION---- This PRA is a [facility] ue Typing Laboratory calculated PRA. PRA is based on the antigen frequency of the Tissue Typing patient a nd donor population. ??PRA reflects all antibodie s with a normalized value (MFI) above 300. SAB DRB1 Specificity NONE 09/17/2018 9:39 AM [facility] PUS SAB BPS900 Specificity NONE 09/17/2018 9:39 A M [facility] PUS SAB DQB1 Specificity see below 09/17/2018 9:39 AM [facility] PUS Comment: 2[9794], 2[306] Format: Serologic equivalent/abbreviated specificity [Normalized Value] shown in decreasing o rder. Note: A serologic equivalent/abbreviated specifi city displayed multiple times could indicate different alleles. SAB DPB1 Specificity NONE 09/17/2018 9:39 AM [facility] Comment: ----ADDITIONAL INFORMATION---- Method: [facility] Performing Laboratory CLIA# [id number] Specimen Anatomical Collection Method Collection Time Receive d Time (Source) Location / / Volume Laterality Blood (Blood, 09/13/2018 5:30 AM 09/14/19 19 Venous) PSYCHIATRIC SOCIAL WORKER 12:39 PM PSYCHIATRIC SOCIAL WORKER Resulting Agency Comment Mailed In Specimen Tay Lozano P.A.-C. LAB HLA ORDERABLES Performing Organization Address City/State/ZIP Code Phon e Number [facility] - [address] [place], [place] [address] [facility] HLA Class I SAB Antibody Screen (09/13/2018 5:30 AM PSYCHIATRIC SOCIAL WORKER) [facility] Method Time Signature Class I SAB Positive Not Applicable 09/17/2018 [facility] Overall 9:17 AM [facility] - Result [facility] Class I SAB 79 09/17/2018 [facility] cPRA 9:17 AM [facility] Comment: ----ADDITIONAL INFORMATION---- This PRA is a [facility] ue Typing Laboratory calculated PRA. PRA is based on the antigen frequency of the Tissue Typing patient a nd donor population. ??PRA reflects all antibodie s with a normalized value (MFI) above 300. SAB A Specificity see below 09/17/2018 9:17 AM [facility] Comment: 32[3886], 31[2525], 25[2041], 23[1955], 24[1632], 24[1538], 30[1347], 30[929] Format: Serologic equivalent/abbreviated specificity [Normalized Value] shown in decreasing o rder. Note: A serologic equivalent/abbreviated specifi city displayed multiple times could indicate different alleles. SAB B Specificity see below 09/17/2018 9:17 AM [facility] Comment: 51[8313], 51[4993], 49[3856], 52[3678], 77[3671], 75[3346], 78[3047], 38[2992], 63[2851], 59[2835], 53[2389], 57[2287], 58[2186], 57[2144], 71[911], 27[905], 13 [864], 37[777], 75[747], 44[686], 44[587], 47[371], 13[3 12] Format: Serologic equivalent/abbreviated specificity [Normalized Value] shown in decreasing o rder. Note: A serologic equivalent/abbreviated specifi city displayed multiple times could indicate different alleles. SAB C Specificity NONE 09/17/2018 9:17 AM [facility] Comment: ----ADDITIONAL INFORMATION---- Method: [facility] Performing Laboratory CLIA# [id number] Specimen Anatomical Collection Method Collection Time Receive d Time (Source) Location / / Volume Laterality Blood (Blood, 09/13/2018 5:30 AM 09/14/19 19 Venous) PSYCHIATRIC SOCIAL WORKER 12:39 PM PSYCHIATRIC SOCIAL WORKER Resulting Agency Comment Mailed In Specimen Tay Lozano P.A.-C. LAB HLA ORDERABLES Performing Organization Address City/State/ZIP Code Phon e Number [facility]IES - [address] [place] [phone] [facility] HIV-1/-2 Ag and Ab Screen, Plasma (09/13/2018 5:30 AM PSYCHIATRIC SOCIAL WORKER) P athologist Signature HIV-1/-2 Ag Negative Negative 09/16/2018 [facility] and Ab Screen, 11:21 AM PSYCHIATRIC SOCIAL WORKER [facility] Comment: Negative result does not rule out HIV in fection. If exposure to HIV infection occurred <14 d ays ago, contact the laboratory to request additi on of HIV-1 RNA detection / quantification test (HIV QN). Specimen Anatomical Collection Method Collection Time Receive d Time (Source) Location / / Volume Laterality Blood (Blood, 09/13/2018 5:30 AM 09/16/19 19 7:55 Venous) PSYCHIATRIC SOCIAL WORKER AM PSYCHIATRIC SOCIAL WORKER Resulting Agency Comment Mailed In Specimen Tay Lozano P.A.-C. LAB MICROBIOLOGY - BLOOD ORD ERABLES Performing Organization Address City/State/ZIP Code Phon e Number [facility] [address] [place] [address] [facility] documented in this encounter Visit Diagnoses Diagnosis Transplant Liver (HCC) - Primary documented in this encounter Additional Health Concerns Assessment Noted Time PHQ-9 Depression Total Score: 3 09/13/2017 7:47 AM PSYCHIATRIC SOCIAL WORKER documented as of this encounter
--- OUTSIDE RECORDS SUMMARY | 2022-05-25 13:28 | XMS_ITS | Encounter Summary ---
:1960 Author Organization [facility] Address [address] [place] [address] Care Team Providers Name Role Phone Unavailable Primary Care Provider Unavailable Reason for Visit Reason Comments Med Refill Encounter Details Date Type Department Care Team Description 08/27[facility] Refill Transplantation and Clinical Regeneration in [place], [place] [address] [place] [address] Social History Tobacco Use Types Packs/Day [...] How often do you attend hoahaoism or quaker 1 to 4 times per [...] Nicholas APRN C.N.P., D.N.P., M.S.N. [address] [place] [address] [phone] (Nicolas wen) 07/31/2022 Lab Laboratory Medicine Tony Rubalcava M. B., ChBurke, MDebra [address] [place] [address] 55 [phone] (Nicolas wen) 07/31/2022 Lab Laboratory Medicine Tony Rubalcava M. B., Sydnie, MDebra [address] [place] [address] 55 [phone] (Wo behzad) 07/31/2022 Office Visit Transplant Tony Rubalcava M.B., ChBurke, MDebra [address] [place] [address] 55 [phone] (Nicolas rk) 07/31/2022 Appointment Radiology Tony Rubalcava M.B., ChBurke, MDebra [address] [place] [address] 55 [phone] (Nicolas wen) 08/01/2022 Office Visit Transplant Tony Rubalcava M.B., ChBurke, MDebra [address] [place] [address] 55 [phone] (Nicolas wen) 08/01/2022 Clinical Support Transplant Tony Rubalcava M.B., Sydnie, MElvia. [address] [place] [address] [phone] (Wo rk) documented as of this encounter Visit Diagnoses Diagnosis Transplant Renal (HCC) - Primary documented in this encounter Additional Health Concerns Assessment Noted Time PHQ-9 Depression Total Score: 3 09/13/2017 7:47 AM ACADEMIC SPECIALIST documented as of this encounter
--- OUTSIDE RECORDS SUMMARY | 2022-05-25 13:28 | XMS_ITS | Encounter Summary ---
:1960 Author Organization [facility] Address [address] [place] [address] Care Team Providers Name Role Phone Unavailable Primary Care Provider Unavailable Encounter Details Date Type Department Care Team Description 09/05/2018 Clinical Communication Mary Goncalves [facility] T, P.A.-C. Transplantation and Clinical Regeneration in [place], [place] [address] [place] [address] Social History Tobacco Use Types Packs/Day [...] How often do you attend latter-day or protestant 1 to 4 times per [...] Nicholas APRN, C.N.P., D.N.P., M.S.N. [address] [place] [address] [phone] (Nicolas wen) 07/31/2022 Lab Laboratory Medicine Tony Rubalcava M. B., Sydnie, MElvia. [address] [place] [address] [phone] (Nicolas wen) 07/31/2022 Lab Laboratory Medicine Tony Rubalcava M. B., Sydnie, MDebra [address] [place] [address] 55 [phone] (Nicolas wen) 07/31/2022 Office Visit Transplant Tony Rubalcava M.B., ChBurke, MDebra [address] [place] [address] 55 [phone] (Nicolas wen) 07/31/2022 Appointment Radiology Tony Rubalcava M.B., ChBurke, MElvia. [address] [place] [address] 55 [phone] (Nicolas wen) 08/01/2022 Office Visit Transplant Tony Rubalcava M.B., ChBurke, MDebra [address] [place] [address] 55 [phone] (Nicolas wen) 08/01/2022 Clinical Support Transplant Tony Rubalcava M.B., Sydnie, Mukund [address] [place] [address] [phone] (Wo rk) documented as of this encounter Visit Diagnoses Diagnosis Pretransplant Recipient Evaluation Exam - Primary Chronic Kidney Disease documented in this encounter Additional Health Concerns Assessment Noted Time PHQ-9 Depression Total Score: 3 09/13/2017 7:47 AM WOODWINDS TEACHER documented as of this encounter
--- OUTSIDE RECORDS SUMMARY | 2022-05-25 13:28 | XMS_ITS | Encounter Summary ---
:1960 Author Organization [facility] Address [address] [place] [address] Care Team Providers Name Role Phone Unavailable Primary Care Provider Unavailable Encounter Details Date Type Department Care Team Description 09/06/2018 Hospital Encounter Department of Tay Lozano splant Recipient Evaluation Exam; Laboratory Medicine T PDaviAKatelynnCDavi Chronic Kidney Disease and Pathology, [place], [place] [address] [place] [address] Social History Tobacco Use Types Packs/Day Years [...] How often do you attend lutheran or taoist 1 to 4 times per [...] or slept in a residential (including now)? Sex Assigned at Date Recorded [...] 1 tablet by 0 06/13/2017 05/31/20 19 [id number] mouth daily. (DIALYVITE) [id number] hs-fh-kqv-mg tablet ciprofloxacin (CIPRO) Take 1 tablet by [...] An Nicholas APRN C.N.P., D.N.P., M.S.N. [address] [place] [address] 55 [phone] (Nicolas wen) 07/31/2022 Lab Laboratory Medicine Tony Rubalcava M. B., Ch.B., M.D. [address] [place] [address] 55 [phone] (Nicolas wen) 07/31/2022 Lab Laboratory Medicine Tony Rubalcava M. B., Ch.B., M.D. [address] [place] [address] 55 [phone] (Nicolas wen) 07/31/2022 Office Visit Transplant Tony Rubalcava M.B., Ch.B., M.D. [address] [place] [address] 55 [phone] (Nicolas wen) 07/31/2022 Appointment Radiology Tony Rubalcava M.B., Ch.B., M.D. [address] [place] [address] 55 [phone] (Nicolas wen) 08/01/2022 Office Visit Transplant Tony Rubalcava M.B., Mukund O[place] [address] [place], [place] 55 [phone] (Wo behzad) 08/01/2022 Clinical Support Transplant Tony Rubalcava M.B., Mukund [place] [address] [place], [place] 55 [phone] (Nicolas wen) documented as of this encounter Visit Diagnoses Diagnosis Pretransplant Recipient Evaluation Exam Chronic Kidney Disease documented in this encounter Additional Health Concerns Assessment Noted Time PHQ-9 Depression Total Score: 3 09/13/2017 7:47 AM SIGNAL WORKER documented as of this encounter
--- OUTSIDE RECORDS SUMMARY | 2022-05-25 13:28 | XMS_ITS | Encounter Summary ---
:1960 Author Organization [facility] Address [address] [place] [address] Care Team Providers Name Role Phone Unavailable Primary Care Provider Unavailable Encounter Details Date Type Department Care Team Description 09/05/2018 Hospital Encounter Outpatient Procedure Kristopher Spear, Center in [place] Debra [address] [place] [id number] [phone] (Wo rk) Social History Tobacco Use Types [...] How often do you attend denominational or jewish 1 to 4 times per [...] Sign Reading Time Taken Comments Blood Pressure 128/73 09/05/2018 3:45 PM SOFTWARE SUPPORT TECHNICIAN Pulse 74 09/05/2018 3:55 PM SOFTWARE SUPPORT TECHNICIAN Temperature 36.5 ??C (97.7 ??F) 09/05/2018 1:47 PM SOFTWARE SUPPORT TECHNICIAN Respiratory Rate 16 09/05/2018 3:55 PM SOFTWARE SUPPORT TECHNICIAN Oxygen Saturation 92% 09/05/2018 3:55 PM SOFTWARE SUPPORT TECHNICIAN Inhaled Oxygen Concentration - - Weight 97.1 kg (214 lb 1.1 oz) 09/05/2018 1:47 PM SOFTWARE SUPPORT TECHNICIAN Height 164.4 cm (5' 4.72) 09/05/2018 1:47 PM SOFTWARE SUPPORT TECHNICIAN Body Mass Index 35.93 09/05/2018 1:47 PM SOFTWARE SUPPORT TECHNICIAN documented in this encounter Discharge Instructions AttachmentsThe following attachments cannot be sent through Care Everywhere. About Your Ureteroscopy ([place] Citizen)documented in this encounter Medications at Time of [...] 1 tablet by 0 06/13/2017 05/31/20 19 30-yxsoj-A-biot-zinc mouth daily. (DIALYVITE) [id number] qw-ge-mbp-mg tablet ciprofloxacin (CIPRO) Take 1 tablet by [...] this encounter OR Notes Op Note - Vicente Robledo M.D. - 09/05/2018 2:40 PM CST FULL OP NOTE Procedure(s) (LRB): EXCHANGE URETERAL STENT. (Right) RETROGRADE PYELOGRAM (Right) Surgeon(s) and Role: * Geraldo Spear M.D. - Primary * Francis Valentin M.D. - Resident - Assisting * Vicente Robledo M.D. - Resident - Assisting Anesthesia Type: Monitored anesthesia care Pre-Operative Diagnosis: Ureteral Stent Exchange [Z46.6]. Post-Operative Diagnosis: Same as pre-operative diagnosis Findings: [...] appropriate informed consent patient was brought to [facility] OR [facility]. Patient was placed under mac sedation, [...] bladder consistent with history of right renal transplant. The stent was obviously long however the patient had no symptoms. There was no encrustation. We then proceeded to grasp the stent and externalize the stent to the meatus. We then placeda sensor wire through the stent lumen to the level of the right renal pelvis. We then removed the stent. We then backloaded our cystoscope over the wire and advanced an 8 x 20 stent over the wire to the level of the right renal pelvis and verified under fluoroscopy. We then achieved a good proximal curl as verified by fluoroscopy. We then achieved a good distal curl as verified by direct vision and fl uoroscopy. The patient tolerated the procedure well and was transferred to the PACU in stable condition. Specimens * No specimens in log * Drains * No drains in log * Estimated Blood Loss 0 mL Implants Implant Name Type Inv. Item Serial No. Manganese Breaker Lot No. LRB No. Used Action STNT URET INL 8FX20 - [id number] Ureteral Stent STNT URET INL 8FX20 [employer] [id number] Right 1 Explanted STNT URET INL 8FX20 - [id number] Ureteral Stent STNT URET INL 8FX20 [employer].Bard [id number] Right 1 Implanted Vicente Robledo M.D. WARE SUPPORT TECHNICIAN documented in this encounter Plan of Treatment Upcoming Encounters Date Type Specialty Care Team Description 06/01/2022 Telemedicine Pharmacy An Nicholas APRN, C.NDaviPDavi, Michelle.N.P., M.S.N. [address] [place] [address] [phone] (Wo rk) 07/31/2022 Lab Laboratory Medicine Tony Rubalcava M. B., Sydnie, Mukund [address] [place] [address] [phone] (Wo rk) 07/31/2022 Lab Laboratory Medicine Tony Rubalcava M. B., ChBurke, Mukund [address] [place] [address] [phone] (Wo rk) 07/31/2022 Office Visit Transplant Tony Rubalcava M.B., Sydnie, MDebra [address] [place] [address] [phone] (Wo rk) 07/31/2022 Appointment Radiology Tony Rubalcava M.B., Sydnie, MDebra [address] [place] [address] [phone] (Wo rk) 08/01/2022 Office Visit Transplant Tony Rubalcava M.B., ChBurke, MDebra [address] [place] [address] [phone] (Wo behzad) 08/01/2022 Clinical Support Transplant Tony Rubalcava M.B., Sydnie, MDebra [address] [place] [address] [phone] (Nicolas wen) documented as of this encounter Procedures Procedure Name Priority Date/Time Associated Diagnosis Comme nts RETROGRADE PYELOGRAM 09/05/2018 2:10 PM SOFTWARE SUPPORT TECHNICIAN Ureteral S tent Exchange Special Needs Listing: GLADYS Pete [id number]. EXCHANGE URETERAL STENT 09/05/2018 2:10 PM SOFTWARE SUPPORT TECHNICIAN Uretera l Stent Exchange Special Needs Listing: GL[place]YS Pete [id number]. documented in this encounter Visit Diagnoses Not on filedocumented in this encounter Administered Medications Inactive Administered Medications - up to 3 most recent administrations Medication Order MAR Action Action Date Dose Rate Site acetaminophen tablet 500 mg Given 09/05/2018 3:41 PM SOFTWARE SUPPORT TECHNICIAN 500 mg (TYLENOL) 500 mg, oral, Once, On Elizabeth 09/05/18 at 1545, For 1 dose, PACU (only) lactated ringers New Bag 09/05/2018 2:20 PM SOFTWARE SUPPORT TECHNICIAN 20 mL/hr, intravenous, Continuous, Starting on Elizabeth 09/05/18 at 1400 New Bag 09/05/2018 2:00 PM SOFTWARE SUPPORT TECHNICIAN 20 mL/hr 20 mL/hr sodium chloride 0.9 % injection 10 mL 10 mL, intravenous, As needed, line care , Starting on Elizabeth 09/05/18 at 1330, Pre-Op, Peripheral Intravenous Catheter and Rapid Infusion Cat heter, prior to blood sampling, post blood transfusion or post blood samplin g sodium chloride 0.9 % injection 3 mL 3 mL, intravenous, As needed, line care, Starting on Elizabeth 09/05/18 at 1330, Pre-Op, Prior to and following infusion and betw een multiple consecutive infusions: sodium chloride 0.9 % injection sodium chloride 0.9 % injection 3 mL 3 mL, intravenous, Every 12 hours scheduled, First dos e on Elizabeth 09/05/18 at 2100, Pre-Op, Peripheral Intravenous Catheter and Rapid Infu mario alberto Catheter, when no infusion to maintain patency documented in this encounter Active and Recently Administered Medications Times are shown in SOFTWARE SUPPORT TECHNICIAN. Scheduled Medication Order 09/03/2018 09/04/2018 09/05/2018 acetaminophen tablet 1,000 mg (TYLENOL) 1400 (Not Given - Provider: Sandoval Adorno R.N. - Reason: Other - Comment: per anesthesia) 1,000 mg, oral, Once, Elizabeth 09/05/18 at 1400, For 1 dose, Pre-Op acetaminophen tablet 500 mg (TYLENOL) (COMPLETED) 1541 (Given - Provider: Sandoval Adorno RDaviNDavi) 500 mg, oral, Once, On Elizabeth 09/05/18 at 1545, For 1 dose, PACU (on ly) ciprofloxacin in D5W IVPB 400 mg (CIPRO) (COMPLETED) 1428 (Given - Provider: Ranjana Montalvo APRN, DIRECTOR CHILD ABUSE THERAPY) 400 mg, intravenous, at 200 mL/hr, Admin ister over 60 Minutes, Once, Elizabeth 09/05/18 at 1415, For 1 dose, Intra-Op, premix bag, Drug Monitoring Program: Pharmacist to adjust medication dosing based on indic ation and drug clearance factors., Indications: Prophylaxis, Ryne gical lidocaine HCl 2 % topical jelly 1 application (UROJET) 1415 (Due) 1 application, urethral, Once, Elizabeth 09/05/18 at 1415, For 1 dose, Intra-Op sodium chloride 0.9 % injection 3 mL 3 mL, intravenous, Every 12 hours schedu led, First dose on Elizabeth 09/05/18 at 2100, Pre-Op, Peripheral Intravenous Catheter and Rapid Infusion Catheter, when no infusion to maintain patency Continuous Medication Order 09/03/2018 09/04/2018 09/05/2018 lactated ringers 1400 (New Bag - Provider: Sandoval Adorno RRalf)1420 (New Bag - Provider: Ranjana Montalvo APRN, DIRECTOR CHILD ABUSE THERAPY)1505 (Anesthesia Volume Adjustment - Provider: Krish Irwin APRN, DIRECTOR CHILD ABUSE THERAPY) 20 mL/hr, intravenous, at 20 mL/hr, Continuous, Starting Elizabeth 08/20 03/07 at 1400 PRN Medication Order 09/03/2018 09/04/2018 09/05/2018 fentaNYL injection 25 mcg (SUBLIMAZE) 25 mcg, intravenous, Every 2 min PRN, mo derate pain or score 4-6 of 10, severe pain or score 7-10 of 10, Starting Elizabeth 09/05/18 at 1541, PACU & Post-Op, Up to maximum total dose of 200 mcg iohexol 300 mg iodine/mL solution (OMNIPAQUE) (CANCELED) 1447 (Given - Provider: Vicente Robledo M.D. - Comment: right kidney/ureter)1457 (Given - Provider: Vicente Robledo M.D. - Comment: right ureter/kidney) As needed, Starting Elizabeth 09/05/18 at 1447, Intra-Op lidocaine HCl 2 % topical jelly (UROJET) (CANCELED) 1435 (Given - Provider: An Potts R.N. - Comment: urethra) As needed, Starting Elizabeth 09/05/18 at 1435, Intra-Op ondansetron (PF) injection 4 mg (ZOFRAN) 4 mg, intravenous, Every 6 hours PRN, na usea, vomiting, Starting Elizabeth 09/05/18 at 1541, For 48 hours, PACU & Post-Op, Reassess for nausea or vomiting after at least 10 minutes. If nausea or vomiting p ersists administer next ordered antiemet ic medications (order for antiemetic medication administration ondansetron then droperidol then promethazine). oxybutynin tablet 5 mg (DITROPAN) 5 mg, oral, Once as needed, If patient i s not required to void prior to dismissal, Starting Elizabeth 09/05/18 at 1541, For 1 dose, PACU & Post-Op sodium chloride 0.9 % injection 10 mL 10 mL, intravenous, As needed, line care , Starting Elizabeth 09/05/18 at 1330, Pre-Op, Peripheral Intravenous Catheter and Rapid Infusion Catheter, prior to blood sampling, post blood transfusion or post blood sampling sodium chloride 0.9 % injection 3 mL 3 mL, intravenous, As needed, line care, Starting Elizabeth 09/05/18 at 1330, Pre-Op, Prior to and following infusion and between multiple consecutive infusions: sodium chloride 0.9 % injection documented in this encounter Additional Health Concerns Assessment Noted Time PHQ-9 Depression Total Score: 3 09/13/2017 7:47 AM SOFTWARE SUPPORT TECHNICIAN documented as of this encounter
--- OUTSIDE RECORDS SUMMARY | 2022-05-25 13:28 | XMS_ITS | Encounter Summary ---
:1960 Author Organization [facility] Address [address] [place] [address] Care Team Providers Name Role Phone Unavailable Primary Care Provider Unavailable Encounter Details Date Type Department Care Team Description 09/05/2018 Surgery Outpatient Procedure Geraldo Spear URETERAL STENT. Center in [place] Hernandez M.D. [address] [place] [phone] [phone] Social History Tobacco Use Types Packs/Day Years [...] or slept in a jail (including now)? Sex Assigned at Date Recorded Female 12/23/2021 4:18 AM CDT documented as of this encounter Last Filed Vital Signs Vital Sign Reading Time Taken Comments Blood Pressure 121/66 09/05/2018 1:47 PM HRIS SPECIALIST Pulse 67 09/05/2018 1:53 PM HRIS SPECIALIST Temperature 36.5 ??C (97.7 ??F) 09/05/2018 1:47 PM HRIS SPECIALIST Respiratory Rate 14 09/05/2018 1:53 PM HRIS SPECIALIST Oxygen Saturation 96% 09/05/2018 1:53 PM HRIS SPECIALIST Inhaled Oxygen Concentration - - Weight 97.1 kg (214 lb 1.1 oz) 09/05/2018 1:47 PM HRIS SPECIALIST Height 164.4 cm (5' 4.72) 09/05/2018 1:47 PM HRIS SPECIALIST Body Mass Index 35.93 09/05/2018 1:47 PM HRIS SPECIALIST documented in this encounter Discharge Instructions AttachmentsThe following attachments cannot be sent through Care Everywhere. About Your Ureteroscopy ([place]ian)documented in this encounter Medications at Time of [...] 1 tablet by 0 06/13/2017 05/31/20 19 62-domlz-V-biot-zinc mouth daily. (DIALYVITE) [id number] qw-rr-qoo-mg tablet ciprofloxacin (CIPRO) Take 1 tablet by [...] appropriate informed consent patient was brought to [facility] OR 3. Patient was placed under mac sedation, was [...] Implant Name Type Inv. Item Serial No. Activity Director Lot No. LRB No. Used Action STNT URET INL 8FX20 - [id number] Ureteral Stent STNT URET INL 8FX20 C.[employer].Bard [id number] Right 1 Explanted STNT URET INL 8FX20 - [id number] Ureteral Stent STNT URET INL 8FX20 C.[employer].Bard [id number] Right 1 Implanted Vicente Robledo, M.D. SPECIALIST documented in this encounter Plan of Treatment Upcoming Encounters Date Type Specialty Care Team Description 06/01/2022 Telemedicine Pharmacy An Nicholas APRN, C.NDoc, Michelle.N.P., M.S.N. [address] [place] [address] [phone] (Wo rk) 07/31/2022 Lab Laboratory Medicine Tony Rubalcava M. B., Sydnie, Mukund [address] [place] [address] [phone] (Wo rk) 07/31/2022 Lab Laboratory Medicine Tony Rubalcava M. B., Sydnie, Mukund [address] [place] [address] [phone] (Wo rk) 07/31/2022 Office Visit Transplant Tony Rubalcava M.B., Sydnie, MDebra [address] [place] [address] [phone] (Wo rk) 07/31/2022 Appointment Radiology Tony Rubalcava M.B., ChBurke, MDebra [address] [place] [address] [phone] (Wo rk) 08/01/2022 Office Visit Transplant Tony Rubalcava M.B., Sydnie, MDebra [address] [place] [address] [phone] (Wo behzad) 08/01/2022 Clinical Support Transplant Tony Rubalcava M.B., ChBurke, MDebra [address] [place] [address] [phone] (Nicolas wen) documented as of this encounter Procedures Procedure Name Priority Date/Time Associated Diagnosis Comme nts RETROGRADE PYELOGRAM 09/05/2018 2:10 PM HRIS SPECIALIST Ureteral S tent Exchange Special Needs Listing: [place] [id number]. EXCHANGE URETERAL STENT 09/05/2018 2:10 PM HRIS SPECIALIST Uretera l Stent Exchange Special Needs Listing: [place] [id number]. documented in this encounter Visit Diagnoses Diagnosis Ureteral Stent Exchange documented in this encounter Administered Medications Inactive Administered Medications - up to 3 most recent administrations Medication Order MAR Action Action Date Dose Rate Site acetaminophen tablet 500 mg Given 09/05/2018 3:41 PM HRIS SPECIALIST 500 mg (TYLENOL) 500 mg, oral, Once, On Elizabeth 09/05/18 at 1545, For 1 dose, PACU (only) iohexol 300 mg iodine/mL solution Given 09/05/2018 2:57 PM HRIS SPECIALIST 4 mL Other (OMNIPAQUE) As needed, Starting on Elizabeth 09/05/18 at 1447, Intra-Op Given 09/05/2018 2:47 PM HRIS SPECIALIST 4 mL Other lactated ringers New Bag 09/05/2018 2:20 PM HRIS SPECIALIST 20 mL/hr, intravenous, Continuous, Starting on Elizabeth 09/05/18 at 1400 New Bag 09/05/2018 2:00 PM HRIS SPECIALIST 20 mL/hr 20 mL/hr lidocaine HCl 2 % topical jelly Given 09/05/2018 2:35 PM HRIS SPECIALIST 1 a pplication Other (UROJET) As needed, Starting on Elizabeth 09/05/18 at 1435, Intra-Op sodium chloride 0.9 % injection 10 [...] Recently Administered Medications Times are shown in HRIS SPECIALIST. Scheduled Medication Order 09/03/2018 09/04/2018 09/05/2018 acetaminophen tablet 1,000 mg (TYLENOL) 1400 (Not Given - Provider: Sandoval Adorno R.N. - Reason: Other - Comment: per anesthesia) 1,000 mg, oral, Once, Elizabeth 09/05/18 at 1400, For 1 dose, Pre-Op acetaminophen tablet 500 mg (TYLENOL) (COMPLETED) 1541 (Given - Provider: Sandoval Adorno R.N.) 500 mg, oral, Once, On Elizabeth 09/05/18 at 1545, For 1 dose, PACU (on ly) ciprofloxacin in D5W IVPB 400 mg (CIPRO) (COMPLETED) 1428 (Given - Provider: Ranjana Montalvo APRN, FLORENCIO) 400 mg, intravenous, at 200 mL/hr, Admin ister over 60 Minutes, Once, Eilzabeth 09/05/18 at 1415, For 1 dose, Intra-Op, [...] 1400 (New Bag - Provider: Sandoval Adorno R.N.)1420 (New Bag - Provider: Ranjana Montalvo APRN, HOOP COILER)1505 (Anesthesia Volume Adjustment - Provider: Krish Irwin APRN, FLORENCIO) 20 mL/hr, intravenous, at 20 mL/hr, Continuous, [...] (CANCELED) 1435 (Given - Provider: An Potts RDaviN. - Comment: urethra) As needed, Starting Elizabeth [...] Depression Total Score: 3 09/13/2017 7:47 AM HRIS SPECIALIST documented as of this encounter
--- OUTSIDE RECORDS SUMMARY | 2022-05-25 13:28 | XMS_ITS | Encounter Summary ---
:1960 Author Organization [facility] Address [address] [place] [address] Care Team Providers Name Role Phone Unavailable Primary Care Provider Unavailable Encounter Details Date Type Department Care Team Description 09/05/2018 Anesthesia Event Outpatient Procedure Krish Irwin APRN, SIENE MAKER [address] [place] [phone] [place], M.D. [address] [place] [phone] [place] [address] [place] [phone] Anesthesia Record Procedure Summary Procedure Name Responsible Anesthesia Start Anesthesia Stop Time Anesthesiologist Time EXCHANGE URETERAL Krish Irwin APRN, 09/05/18 1420 08/20 03/07 1536 STENT. (Right) SIENE MAKER Events Date Time Event Comment 09/05/2018 1352 1420 An Start Machine/Equipmen t Checked Infection Precautions Foll owed Procedure/Site Verified NPO Sta tus Verified Supine Standard ASA Mon itors Applied 1420 In Room 1424 Turnover to Proceduralist 1440 Proc Start 1525 Proc Fin 1529 Turnover to ANE Staff 1531 Out of Room 1531 an stop data 1536 An End I completed my h andoff to the receiving staff during i ch we 1. Identified the patient 2. Ident ified the responsible provider 3. Revi ewed the pertinent medical history 4. Discu ssed the surgical course 5. Reviewed intra-o p anesthesia management and issues during an esthesia 6. Set expectations for post-procedure period 7. Allowed opportun ity for questions and acknowledgement of understanding. Name Total fentanyl injection 50 mcg/mL 100 mcg propofol 10 mg/mL infusion 451.52 mg propofol 10 mg/mL injection 180 mg lidocaine 2% (mg) injection 60 mg ondansetron PF 4 mg/2 mL injection 4 mg ciprofloxacin in D5W IVPB 400 mg (CIPRO) 400 mg phenylephrine 100 mcg/mL injection 200 mcg ePHEDrine PF 5 mg/mL syringe injection 15 mg lactated ringers 500 mL Agents No agents on file. Blood No blood administrations on file. Lines, Drains, and Airways Type Details Placement Removal Retired (Do not use) Placement Date: 08/24/03 0000 by 09/16/19 1 422 by Hemodialysis AV Access 08/24/03 (Elvia Wade Taylor, Katherine M, [place], [place]); R.N. R.N. Removal Date: 09/16/19; Removal Time: 1422 Peripheral IV Placement Date: 09/05/18 1359 by 09/05/18 1644 b y 09/05/18; Placement Sandoval Adorno Lange, Ja de E, Time: 1359; Catheter R.N. M.S.N., R.N . Size: 22 G; Orientation: Right; Location: Hand; Site Prep: Alcohol; Technique: Anatomical landmarks; Insertion Attempts: 1; Removal Date: 09/05/18; Removal Time: 1644 documented in this encounter Social History Tobacco [...] How often do you attend mandaeism or protestant 1 to 4 times per [...] encounter OR Notes Anesthesia Postprocedure Evaluation - Krish Irwin APRN, CRNA - 09/05/2018 3:36 PM CST Patient: Shabnam Wray Procedure Summary Date: 09/05/18 Room / Location: [place] [address] / [facility] in [place], [place] Anesthesia Start: 1420 Anesthesia Stop: 1536 Procedures: EXCHANGE URETERAL STENT. (Right ) RETROGRADE PYELOGRAM (Right ) Diagnosis: Ureteral Stent Exchange (Ureteral Stent Exchange [Z46.6].) Surgeon: Geraldo Spear M.D. Responsible Provider: Krish Irwin APRN, CRNA Anesthesia Type: MAC ASA Status: 3 Anesthesia Type: MAC Last vitals BP 121/66 (09/05/18 1347) Temp 36.5 ??C (09/05/18 1347) Pulse 71 (09/05/18 1347) Resp 21 (09/05/18 1347) SpO2 95 % (09/05/18 1347) Anesthesia Post Evaluation Patient Disposition: dismissal Cardiovascular status: hemodynamics (HR & BP) acceptable Respiratory status: patent airway with spontaneous effort Temperature: normothermic Oxygen requirements: room air Level of consciousness: awake Pain score: pain adequately controlled and/or at baseline Post Op nausea/vomiting: none Hydration status: euvolemic BUILDER Anesthesia Preprocedure Evaluation - Deo Arredondo M.D. - 09/05/2018 1:51 PM CST Anesthesia Pre-Evaluation Pertinent components of the patient's [...] ROM: Full Cardiovascular Rhythm: Regular Rate: Normal Pulmonary Pulmonary Assessment: Clear Neurological Normal Dental Normal General / Constitutional AV fistula in upper left arm Normal ASSESSMENT / PLAN ANESTHESIA PLAN ASA: 3 Anesthesia Plan: MAC Patient seen and allergies reviewed; anesthesia plan and risks discussed directly with patient / legal guardian, or through an commercial lending vice president; patient evaluated and approved for anesthesia / sedation. The use of blood products not discussed [place], [place]; BMI ; awaiting a kidney transplant and on dialysis; left arm fistula; undergoes stentexchanges with MAC; MP 2 airway; last exchange was 05-14-2018 BUILDER documented in this encounter Miscellaneous Notes Addendum Note - Pasha Acevedo M.D., Ph.D. - 09/05/2018 3:38 PM CST Addendum created 09/05/18 1538 by Pasha Acevedo M.D., Ph.D. Order list changed BUILDER documented in this encounter Plan of Treatment Upcoming Encounters Date Type Specialty Care Team Description 06/01/2022 Telemedicine Pharmacy An Nicholas APRN, C.NDoc, Michelle.N.P., M.S.N. [address] [place] [phone] (Wo rk) 07/31/2022 Lab Laboratory Medicine Tony Rubalcava M. B., Sydnie, Mukund [address] [place] [phone] (Wo rk) 07/31/2022 Lab Laboratory Medicine Tony Rubalcava M. B., Sydnie, Mukund [address] [place] [phone] (Wo rk) 07/31/2022 Office Visit Transplant Tony Rubalcava M.B., Sydnie, Mukund [address] [place] [phone] (Wo rk) 07/31/2022 Appointment Radiology Tony Rubalcava M.B., Sydnie, Mukund [address] [place] [phone] (Wo rk) 08/01/2022 Office Visit Transplant Tony Rubalcava M.B., Sydnie, Mukund [address] [place] [phone] (Wo rk) 08/01/2022 Clinical Support Transplant Tony Rubalcava M.B., Sydnie, Mukund [address] [place] [phone] (Wo rk) documented as of this encounter Visit Diagnoses Not on filedocumented in this encounter Administered Medications Inactive Administered Medications - up to 3 most recent administrations Medication Order MAR Action Action Date Dose Rate Site ciprofloxacin in D5W IVPB 400 mg Given 09/05/2018 2:28 PM CURB BUILDER 40 0 mg (CIPRO) 400 mg, intravenous, at 200 mL/hr, Administer over 60 Minutes, Once, On Elizabeth 09/05/18 at 1415, For 1 dose, Intra-Op, premix bag, Drug Monitoring Program: Pharmacist to adjust medication dosing based on indication and drug clearance factors., Indications: Prophylaxis, surgical ePHEDrine (PF) injection Given 09/05/2018 3:00 PM CURB BUILDER 10 mg As needed, Starting on Elizabeth 09/05/18 at 1440, Anesthesia Intra-op Given 09/05/2018 2:40 PM CURB BUILDER 5 mg fentaNYL injection (SUBLIMAZE) Given 09/05/2018 3:20 PM CURB BUILDER 25 mcg intravenous, As needed, severe pain or score 7-10 of 10, Starting on Elizabeth 09/05/18 at 1421, Anesthesia Intra-op Given 09/05/2018 3:05 PM CURB BUILDER 25 mcg Given 09/05/2018 2:30 PM CURB BUILDER 25 mcg lactated ringers New Bag 09/05/2018 2:20 PM CURB BUILDER 20 mL/hr, intravenous, Continuous, Starting on Elizabeth 09/05/18 at 1400 New Bag 09/05/2018 2:00 PM CURB BUILDER 20 mL/hr 20 mL/hr lidocaine (PF) (cardiac) injection Given 09/05/2018 2:21 PM CURB BUILDER 60 mg intravenous, As needed, Starting on Elizabeth 09/05/18 at 1421, Anesthesia Intra-op ondansetron (PF) injection (ZOFRAN) Given 09/05/2018 2:21 PM CURB BUILDER 4 mg intravenous, As needed, nausea, vomiting, Starting on Elizabeth 09/05/18 at 1421, Anesthesia Intra-op phenylephrine injection Given 09/05/2018 3:00 PM CURB BUILDER 100 mcg As needed, Starting on Elizabeth 09/05/18 at 1440, Anesthesia Intra-op Given 09/05/2018 2:40 PM CURB BUILDER 100 mcg propofol 10 mg/mL infusion Rate/Dose 09/05/2018 2:53 110 mcg/kg/min 64.1 mL/hr (DIPRIVAN) Change PM CURB BUILDER intravenous, Continuous Infusion: Per Instructions PRN, Starting on Elizabeth 09/05/18 at 1422, Anesthesia Intra-op Rate/Dose Change 09/05/2018 2:41 PM CURB BUILDER 90 mcg/kg/min 52.4 mL/hr Rate/Dose Change 09/05/2018 2:30 PM CURB BUILDER 110 mcg/kg/min 64.1 mL/hr propofol injection (DIPRIVAN) Given 09/05/2018 3:20 PM CURB BUILDER 30 mg intravenous, As needed, Starting on Elizabeth 09/05/18 at 1422, Anesthesia Intra-op Given 09/05/2018 3:05 PM CURB BUILDER 20 mg Given 09/05/2018 2:52 PM CURB BUILDER 30 mg documented in this encounter Additional Health Concerns Assessment Noted Time PHQ-9 Depression Total Score: 3 09/13/2017 7:47 AM CURB BUILDER documented as of this encounter
--- OUTSIDE RECORDS SUMMARY | 2022-05-25 13:28 | XMS_ITS | Encounter Summary ---
:1960 Author Organization [facility] Address [address] [place] [address] Care Team Providers Name Role Phone Unavailable Primary Care Provider Unavailable Encounter Details Date Type Department Care Team Description 10/25/2018 Orders Only Division of Nephrology Steve Martínez Kidney Disease Stage 5 Glomerular Filtration Rate Less Than 15 (HCC) (Primary Dx); and Hypertension in Fracisco Garcia D.O. Hypertension And Chronic Kidney Disease Stage 1 To 4; [place], [place] [address] [facility] Complication Dialysis Fistula Subsequent [address] [place] [phone] Social History Tobacco Use Types Packs/Day Years [...] How often do you attend worship or taoism 1 to 4 times per [...] Nicholas APRN C.N.P., D.N.P., M.S.N. [address] [place] [phone] (Nicolas wen) 07/31/2022 Lab Laboratory Medicine Tony Rubalcava M. B., ChDaviBDavi, MElvia. [address] [place] [phone] (Nicolas wen) 07/31/2022 Lab Laboratory Medicine Tony Rubalcava M. B., ChBurke, MDaviD. [address] [place] [phone] (Nicolas wen) 07/31/2022 Office Visit Transplant Tony Rubalcava M.B., ChDaviBDavi, MDaviD. [address] [place] [phone] (Nicolas wen) 07/31/2022 Appointment Radiology Tony Rubalcava M.B., Ch.BDavi, MDaviD. [address] [place] [phone] (Nicolas wen) 08/01/2022 Office Visit Transplant Tony Rubalcava M.B., Mukund [place] [address] [place], [place] [phone] (Wo behzad) 08/01/2022 Clinical Support Transplant Tony Rubalcava M.B., Mukund [place] [address] [place], [place] [phone] (Nicolas wen) documented as of this encounter Visit Diagnoses Diagnosis Chronic Kidney Disease Stage 5 Glomerula r Filtration Rate Less Than 15 (HCC) - Primary Hypertension And Chronic Kidney Disease Stage 1 To 4 Complication Dialysis Fistula Subsequent documented in this encounter Additional Health Concerns Assessment Noted Time PHQ-9 Depression Total Score: 3 09/13/2017 7:47 AM OUTSIDE 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
--- OUTSIDE RECORDS SUMMARY | 2022-05-25 13:28 | XMS_ITS | Encounter Summary ---
:1960 Author Organization [facility] Address [address] [place] [address] Care Team Providers Name Role Phone Unavailable Primary Care Provider Unavailable Encounter Details Date Type Department Care Team Description 09/09/2018 Hospital Encounter Department of Tay Lozano Liver Laboratory Medicine T, PDaviADavi-CDavi (HCC) and Pathology, [place], [place] [address] [place] [address] Social History Tobacco Use Types Packs/Day Years [...] How often do you attend yarsani or scientology 1 to 4 times per [...] 1 tablet by 0 06/13/2017 05/31/20 19 26-kcrnr-[id number]-biot-zinc mouth daily. (DIALYVITE) [id number] vd-xw-vyr-mg tablet ciprofloxacin (CIPRO) Take 1 tablet by [...] Nicholas APRN, C.N.P., D.N.P., M.S.N. [address] [place] [phone] (Nicolas wen) 07/31/2022 Lab Laboratory Medicine Tony Rubalcava M. B., Ch.B., M.D. [address] [place] [phone] (Nicolas wen) 07/31/2022 Lab Laboratory Medicine Tony Rubalcava M. B., Ch.B., M.D. [address] [place] [phone] (Nicolas wen) 07/31/2022 Office Visit Transplant Tony Rubalcava M.B., Ch.B., M.D. [address] [place] [phone] (Nicolas wen) 07/31/2022 Appointment Radiology Tony Rubalcava M.B., Ch.B., M.D. [address] [place] [phone] (Nicolas wen) 08/01/2022 Office Visit Transplant Tony Rubalcava M.B., Mukund [place] [address] [place], [place] [phone] (Wo rk) 08/01/2022 Clinical Support Transplant Tony Rubalcava M.B., Sydnie, Mukund [address] [place], [place] [phone] (Wo behzad) documented as of this encounter Procedures Procedure Name Priority Date/Time Associated Diagnosis Comme nts HIV-1/-2 AG AND AB Routine 09/13/2018 5:30 AM Transplant Liver Results for this SCREEN, PLASMA LOOM CHECKER (HCC) procedure are in the results section. HLA CLASS II SAB Routine 09/13/2018 5:30 AM Transplant Liver R esults for this ANTIBODY SCREEN LOOM CHECKER (HCC) procedure ar e in the results section. HLA CLASS I SAB Routine 09/13/2018 5:30 AM Transplant Liver Re sults for this ANTIBODY SCREEN LOOM CHECKER (HCC) procedure ar e in the results section. documented in this encounter Results HLA Class II SAB Antibody Screen (09/13/2018 5:30 AM LOOM CHECKER) [facility] Method Time Signature Class II SAB Positive Not Applicable 09/17/2018 [facility] Overall 9:39 AM LOOM CHECKER [facility] Class II SAB 37 09/17/2018 [facility] cPRA 9:39 AM LOOM CHECKER [facility] Comment: ----ADDITIONAL INFORMATION---- This PRA is a [facility] calculated PRA. PRA is based on the antigen frequency of the Tissue Typing patient a nd donor population. ??PRA reflects all antibodie s with a normalized value (MFI) above 300. SAB DRB1 Specificity NONE 09/17/2018 9:39 AM LOOM CHECKER [facility] P[facility] SAB [id number] Specificity NONE 09/17/2018 9:39 A M LOOM CHECKER [facility] P[facility] SAB DQB1 Specificity see below 09/17/2018 9:39 AM LOOM CHECKER [facility] Comment: 2[6094], 2[306] Format: Serologic equivalent/abbreviated specificity [Normalized Value] shown in decreasing o rder. Note: A serologic equivalent/abbreviated specifi city displayed multiple times could indicate different alleles. SAB DPB1 Specificity NONE 09/17/2018 9:39 AM [facility] [place] Comment: ----ADDITIONAL INFORMATION---- Method: Luminex Performing Laboratory CLIA# [id number] Specimen Anatomical Collection Method Collection Time Receive d Time (Source) Location / / Volume Laterality Blood (Blood, 09/13/2018 5:30 AM 09/14/19 19 Venous) LOOM CHECKER 12:39 PM LOOM CHECKER Resulting Agency Comment Mailed In Specimen Tay Lozano P.A.-C. LAB HLA ORDERABLES Performing Organization Address City/State/ZIP Code Phon e Number [facility] - [address] [place], [place] [address] [facility] HLA Class I SAB Antibody Screen (09/13/2018 5:30 AM LOOM CHECKER) [facility] Method Time Signature Class I SAB Positive Not Applicable 09/17/2018 [facility] Overall 9:17 AM [facility] - Result [facility] Class I SAB 79 09/17/2018 [facility] cPRA 9:17 AM [facility] Comment: ----ADDITIONAL INFORMATION---- This PRA is a [facility]iss [facility] calculated PRA. PRA is based on the antigen frequency of the Tissue Typing patient a nd donor population. ??PRA reflects all antibodie s with a normalized value (MFI) above 300. SAB A Specificity see below 09/17/2018 9:17 AM [facility] [place] Comment: 32[3886], 31[2525], 25[2041], 23[1955], 24[1632], 24[1538], 30[1347], 30[929] Format: Serologic equivalent/abbreviated specificity [Normalized Value] shown in decreasing o rder. Note: A serologic equivalent/abbreviated specifi city displayed multiple times could indicate different alleles. SAB B Specificity see below 09/17/2018 9:17 AM [facility] [place] Comment: 51[8313], 51[4993], 49[3856], 52[3678], 77[3671], 75[3346], 78[3047], 38[2992], 63[2851], 59[2835], 53[2389], 57[2287], 58[2186], 57[2144], 71[911], 27[905], 13 [864], 37[777], 75[747], 44[686], 44[587], 47[371], 13[3 12] Format: Serologic equivalent/abbreviated specificity [Normalized Value] shown in decreasing o rder. Note: A serologic equivalent/abbreviated specifi city displayed multiple times could indicate different alleles. SAB C Specificity NONE 09/17/2018 9:[address] [facility] Comment: ----ADDITIONAL INFORMATION---- Method: Luminex Performing Laboratory CLIA# [id number] Specimen Anatomical Collection Method Collection Time Receive d Time (Source) Location / / Volume Laterality Blood (Blood, 09/13/2018 5:30 AM 09/14/19 19 Venous) LOOM CHECKER 12:39 PM LOOM CHECKER Resulting Agency Comment Mailed In Specimen Tay Lozano P.A.-C. LAB HLA ORDERABLES Performing Organization Address City/[facility] Code Phon e Number [facility] - [address] [place] [address] [facility] HIV-1/-2 Ag and Ab Screen, Plasma (09/13/2018 5:30 AM LOOM CHECKER) P athologist Signature HIV-1/-2 Ag Negative Negative 09/16/2018 [facility] and Ab Screen, 11:21 AM LOOM CHECKER [facility] [place] Comment: Negative result does not rule out HIV in fection. If exposure to HIV infection occurred <14 d ays ago, contact the laboratory to request additi on of HIV-1 RNA detection / quantification test (HIV QN). Specimen Anatomical Collection Method Collection Time Receive d Time (Source) Location / / Volume Laterality Blood (Blood, 09/13/2018 5:30 AM 09/16/19 19 7:55 Venous) LOOM CHECKER AM LOOM CHECKER Resulting Agency Comment Mailed In Specimen Tay Lozano P.A.-C. LAB MICROBIOLOGY - BLOOD ORD ERABLES Performing Organization Address City/State/ZIP Code Phon e Number [facility] [address] [place] [address] [facility] documented in this encounter Visit Diagnoses Diagnosis Transplant Liver (HCC) documented in this encounter Additional Health Concerns Assessment Noted Time PHQ-9 Depression Total Score: 3 09/13/2017 7:47 AM LOOM CHECKER documented as of this encounter
--- OUTSIDE RECORDS SUMMARY | 2022-05-25 13:28 | XMS_ITS | Encounter Summary ---
:1960 Author Organization [facility] Address [address] [place] [address] Care Team Providers Name Role Phone Unavailable Primary Care Provider Unavailable Encounter Details Date Type Department Care Team Description 10/25/2018 Orders Only Division of Nephrology Steve Martínez omplication Dialysis Fistula Subsequent (Primary Dx); and Hypertension in Fracisco Garcia D.O. Chronic Kidney Disease Stage 5 Glomerula r Filtration Rate Less Than 15 (HCC) [place], [place] [address] [facility] [address] [place] [id number] [phone] Social History Tobacco Use Types Packs/Day Years [...] How often do you attend restorationist or yazidi 1 to 4 times per [...] An Nicholas APRN C.N.P., D.N.P., M.S.N. [address] [place] [address] [phone] (Nicolas wen) 07/31/2022 Lab Laboratory Medicine Tony Rubalcava M. B., ChBurke, M.D. [address] [place] [address] [phone] (Nicloas wen) 07/31/2022 Lab Laboratory Medicine Tony Rubalcava M. B., ChDaviBDavi, MDaviD. [address] [place] [address] [phone] (Nicolas wen) 07/31/2022 Office Visit Transplant Tony Rubalcava M.B., ChDaviBDavi, M.D. [address] [place] [address] [phone] (Nicolas wen) 07/31/2022 Appointment Radiology Tony Rubalcava M.B., ChDaviBDavi, MDaviD. [address] [place] [address] [phone] (Nicolas wen) 08/01/2022 Office Visit Transplant Tony Rubalcava M.B., Mukund Otoole [address] [place], [place] [phone] (Wo rk) 08/01/2022 Clinical Support Transplant Tony Rubalcava M.B., Mukund Otoole [address] [place], [place] [phone] (Wo behzad) documented as of this encounter Results IR Dialysis Fistula Declot Stent Left (10/25/2018 2:50 PM CLAY PUDDLER) Anatomical Region Laterality Modality Body, Vascular Interventional RST LOS, Vascular Left X-Ray Angiography Interventional ARZ LOS, Vascular Interventional FLA LOS Specimen (Source) Anatomical Collection Method Collection Time Re ceived Time Location / / Volume Laterality 10/25/2018 5:45 PM C[facility] PUD[facility]ER Impressions 10/25/2018 6:15 PM [facility] PUDDL[facility] IMPRESSION: 1. Left upper extremity dialysis fistula declot with angioplasty and 8mm Viabahn self-expanding covered stent placement a cross the transposed basilic vein veno-venous anastomosis as described. Re adily palpable thrill restored in the fistula. 2. In the absence of interval problems, recommend returning for dialysis fistulagram in 4 weeks to reassess the f istula as the juxta-anastomotic region may need reintervention. NR Narrative 10/25/2018 6:15 PM CLAY PUDDLER EXAM: IR DIALYSIS FISTULA DECLOT STENT LEFT CLINICAL HISTORY: Thrombosed left upper extremity brachiobasilic fistula. TECHNIQUE: Ultrasound imaging demonstrat ed occlusive thrombus within the left upper extremity brachiobasilic fistula. Under ultrasound guidance, a micropuncture set was used to access the outflow vein at the level of the midhumerus in a retrograde fashion orien rebecca towards the elbow. Contrast injection demonstrated thrombus througho ut the fistula in the mid-lower arm. The outflow vein was patent in the upper arm . A 6 Citizen Of [place] short sheath was placed. The patient was systemically heparinized . Access was obtained across the arterial anastomosis which demonstrated a significant juxta anastomotic stenosis. 2 mg of TPA were administered during catheter pulled back across the thrombosed segment. This was left dwell. 6 mm balloon angioplasty was then performed throughout the thrombosed segm ent. We then accessed the outflow vein a few centimeters from the arterial anasto mosis in an antegrade fashion oriented towards the shoulder. A 6 Citizen Of [place] 10 cm s kimberli was placed. Contrast injection in the mid-upper arm demonstrated a stenosi s at the transposed basilic vein anastomosis as well as additional thromb us. An additional 2 mg of TPA was administered with catheter pulled back. The venous anastomosis was then dilated with an 8 mm balloon followed by a 10 mm balloon and the peripheral juxta-anastomotic stenosis was dilated w ith a 7 mm balloon. Follow-up contrast injection demonstrated significantly imp roved flow through the fistula with some residual narrowing at the juxta-anastomo tic and venous anastomoses. However, there was a palpable thrill that was est ablished. A 2-0 Prolene woggle suture was placed at the retrograde access poin t, however, there was insufficient hemostasis due to the angle of the trans posed basilic vein. Unfortunately, the patient developed a moderate-sized hemat gavino that resulted in dampening of the fistula thrill. Contrast injection throu gh the antegrade sheath demonstrated external compression from the hematoma o n the outflow vein as well as a pseudoaneurysm at the access site. The p atient was given 2 mg of IV Ancef. The sheath was upsized to a 7 Citizen Of [place] 23 cm B rite Tip sheath and an 8mm by 5 cm Viabahn self-expanding covered stent was subsequently deployed across the pseudoaneurysm and the stenotic area. Fo llow-up contrast injection demonstrated the stent to be widely patent with promp t antegrade flow and no further filling of the pseudoaneurysm. The antegrade she ath was then removed and hemostasis was obtained with a 2-0 Prolene pursestring woggle suture. The woggle suture was removed in the PAR after 1 hour, and there was some residual bleeding. Unfortunately, the pa tient also developed a hematoma at this access site as well. Hemostasis was obta ined with manual pressure and the hematoma was able to be reduced. The pat ient had some very minor cutaneous oozing from the suture sites, and thus w jayy placed a D-Stat at each site with Mepilex dressings. There was a readily p alpable thrill of the fistula when the patient left the PAR. She was instructed to visit the nearest Emergency Department if she were to develop recurr ent bleeding, arm swelling, or arm pain. She is scheduled to undergo dialysis low orr morning. PREPROCEDURE: Patient seen, evaluated, h istory reviewed, [...] procedure. The total intra-procedural sedation time was: 134 minutes. Procedure Note Jamin Christianson M.D. - 10/25/2018Form atting of this note might be different from the original. EXAM: IR DIALYSIS FISTULA DECLOT STENT L EFT CLINICAL HISTORY: Thrombosed left upper extremity brachiobasilic fistula. TECHNIQUE: Ultrasound imaging demonstrat ed occlusive thrombus within the left upper extremity brachiobasilic fistula. Under ultrasound guidance, a micropuncture set was used to access the outflow vein at the level of the midhumerus in a retrograde fashion orien rebecca towards the elbow. Contrast injection demonstrated thrombus througho ut the fistula in the mid-lower arm. The outflow vein was patent in the upper arm . A 6 Citizen [place] short sheath was placed. The patient was systemically heparinized . Access was obtained across the arterial anastomosis which demonstrated a significant juxta anastomotic stenosis. 2 mg of TPA were administered during catheter pulled back across the thrombosed segment. This was left dwell. 6 mm balloon angioplasty was then performed throughout the thrombosed segm ent. We then accessed the outflow vein a few centimeters from the arterial anasto mosis in an antegrade fashion oriented towards the shoulder. A 6 Citizen [place] 10 cm s kimberli was placed. Contrast injection in the mid-upper arm demonstrated a stenosi s at the transposed basilic vein anastomosis as well as additional thromb us. An additional 2 mg of TPA was administered with catheter pulled back. The venous anastomosis was then dilated with an 8 mm balloon followed by a 10 mm balloon and the peripheral juxta-anastomotic stenosis was dilated w ith a 7 mm balloon. Follow-up contrast injection demonstrated significantly imp roved flow through the fistula with some residual narrowing at the juxta-anastomo tic and venous anastomoses. However, there was a palpable thrill that was est ablished. A 2-0 Prolene woggle suture was placed at the retrograde access poin t, however, there was insufficient hemostasis due to the angle of the trans posed basilic vein. Unfortunately, the patient developed a moderate-sized hemat gavino that resulted in dampening of the fistula thrill. Contrast injection throu gh the antegrade sheath demonstrated external compression from the hematoma o n the outflow vein as well as a pseudoaneurysm at the access site. The p atient was given 2 mg of IV Ancef. The sheath was upsized to a 7 Citizen [place] 23 cm B rite Tip sheath and an 8mm by 5 cm Viabahn self-expanding covered stent was subsequently deployed across the pseudoaneurysm and the stenotic area. Fo llow-up contrast injection demonstrated the stent to be widely patent with promp t antegrade flow and no further filling of the pseudoaneurysm. The antegrade she ath was then removed and hemostasis was obtained with a 2-0 Prolene pursestring woggle suture. The woggle suture was removed in the PAR after 1 hour, and there was some residual bleeding. Unfortunately, the pa tient also developed a hematoma at this access site as well. Hemostasis was obta ined with manual pressure and the hematoma was able to be reduced. The pat ient had some very minor cutaneous oozing from the suture sites, and thus w e placed a D-Stat at each site with Mepilex dressings. There was a readily p alpable thrill of the fistula when the patient left the PAR. She was instructed to visit the nearest Emergency Department if she were to develop recurr ent bleeding, arm swelling, or arm pain. She is scheduled to undergo dialysis low orrow morning. PREPROCEDURE: Patient seen, evaluated, h istory reviewed, [...] procedure. The total intra-procedural sedation time was: 134 minutes. IMPRESSION: 1. Left upper extremity dialysis fistula declot with angioplasty and 8mm Viabahn self-expanding covered stent placement a cross the transposed basilic vein veno-venous anastomosis as described. Re adily palpable thrill restored in the fistula. 2. In the absence of interval problems, recommend returning for dialysis fistulagram in 4 weeks to reassess the f istula as the juxta-anastomotic region may need reintervention. NR Steve Martínez Jr., D.ODavi [facility] IR PROCEDURES [...] Depression Total Score: 3 09/13/2017 7:47 AM CLAY PUDDLER documented as of this encounter
--- OUTSIDE RECORDS SUMMARY | 2022-05-25 13:28 | XMS_ITS | Encounter Summary ---
:1960 Author Organization [facility] Address [address] [place] [address] Care Team Providers Name Role Phone Unavailable Primary Care Provider Unavailable Encounter Details Date Type Department Care Team Description 10/25/2018 Hospital Encounter Department of Josr Martínez Jr., D.ODavi [address] [place] [phone] Complication Dialysis Fistula Subsequent ; Radiology in Jamin Christianson M.D. [address] [place] [phone] Chronic Kidney Disease Stage 5 Glomerula r Filtration Rate Less Than 15 (HCC) [place], [place] [address] [place] [phone] Social History Tobacco Use Types Packs/Day Years [...] How often do you attend buddhism or anglican 1 to 4 times per [...] Sign Reading Time Taken Comments Blood Pressure 121/64 10/25/2018 3:45 PM SCALEMAKER Pulse - - Temperature - - Respiratory Rate 20 10/25/2018 3:45 PM SCALEMAKER Oxygen Saturation 99% 10/25/2018 2:45 PM SCALEMAKER Inhaled Oxygen Concentration - - Weight - [...] 1 tablet by 0 06/13/2017 05/31/20 19 [id number]-zinc mouth daily. (DIALYVITE) [id number] gu-jp-xrd-mg tablet ciprofloxacin (CIPRO) Take 1 tablet by [...] documented as of this encounter H&P Notes Jamin Christianson M.D. - 10/25/2018 11:49 AM CST SUBJECTIVE CHIEF COMPLAINT / REASON FOR VISIT Shabnam Wray is a 58 y.o. female who presents for dialysis fistula declot. HISTORY OF PRESENT ILLNESS/MODERATE SEDATION Consents Obtained: written The benefits, risks, and alternatives to the procedure and the potential need for sedation or anesthesia as well as the names, roles and responsibilities of healthcare team members performing significant interventional tasks were discussed with the patient and/or decision maker: yes Procedure / Reason for visit: Fistula declot The following portions of the patient's history were reviewed and updated as appropriate: allergies,current medications, family history, medical history, social history and problem list. yes Review of systems: pertinent ROS negative Mallampati: II - soft palate, uvula, fauces visible Heart: normal Lung: normal ASA physical exam: class 2 - patient with mild systemic disease Sedation plan: moderate sedation Patient seen, evaluated and approved for sedation VITAL SIGNS Preprocedure vitals reviewed PHYSICAL EXAM Airway: Adequate airway and neck range of motion. Heart: Adequate rate and rhythm for sedation. Lungs: Satisfactory auscultation bilaterally. ASSESSMENT / PLAN Proceed with moderate sedation for dialysis fistula declot. EMAKER documented in this encounter Procedure Notes Jamin Christianson M.D. - 10/25/2018 3:08 PM CST PATIENT DISPOSITION Discharge to home. POST-PROCEDURE DIAGNOSIS Declot of the thrombosed left upper extremity dialysis fistula. PROCEDURE PERFORMED AND DESCRIPTION Dialysis fistula declot, angioplasty, stent placement PROCEDURE DETAILS See Radiology Report SPECIMENS REMOVED None FINDINGS SEE REPORT PRIMARY PROCEDURALIST Milady CHRISTIANSON [id number] ASSISTANTS None COMPLICATIONS Left upper arm access site hematoma DRAINS none IMPLANTS Reference implant document. ANESTHESIA Moderate Sedation. FLUIDS NONE ESTIMATED BLOOD LOSS 25 mL CURRENT MEDICATIONS No Medication Changes FOLLOW-UP LETTER None. MAY RETURN TO WORK Not applicable PATIENT INSTRUCTIONS Return for fistulogram in 4 weeks EMAKER documented in this encounter Plan of Treatment Upcoming Encounters Date Type Specialty Care Team Description 06/01/2022 Telemedicine Pharmacy An Nicholas APRN, C.N.P., D.N.P., M.S.N. [address] [place] [address] 55 [phone] (Wo rk) 07/31/2022 Lab Laboratory Medicine Tony Rubalcava M. B., Sydnie, MDebra [address] [place] [address] [phone] (Wo rk) 07/31/2022 Lab Laboratory Medicine Tony Rubalcava M. B., Sydnie, MDebra [address] [place] [address] [phone] (Wo rk) 07/31/2022 Office Visit Transplant Tony Rubalcava M.B., Mukund [place] [address] [place] [address] [phone] (Wo rk) 07/31/2022 Appointment Radiology Tony Rubalcava M.B., Mukund [place] [address] [place] [address] [phone] (Wo rk) 08/01/2022 Office Visit Transplant Tony Rubalcava M.B., Mukund [place] [address] [place] [address] [phone] (Wo rk) 08/01/2022 Clinical Support Transplant Tony Rubalcava M.B., Mukund [place] [address] [place] [address] [phone] (Wo rk) documented as of this encounter Procedures Procedure Name Priority Date/Time Associated Comments Diagnosis IR DIALYSIS RAD - Routine 10/25/2018 2:50 Complication Results for this FISTULA DECLOT (most inpatients PM SCALEMAKER Dialysis Fistula proce dure are in STENT LEFT and all Subsequent the results outpatients) Chronic Kidney section. Disease Stage 5 Glomerular Filtration Rate Less Than 15 (HCC) ADULT OXYGEN Routine 10/25/2018 11:31 THERAPY AM SCALEMAKER documented in this encounter Results IR Dialysis Fistula Declot Stent Left (10/25/2018 2:50 PM SCALEMAKER) Anatomical Region Laterality Modality Body, Vascular Interventional RST LOS, Vascular Left X-Ray Angiography Interventional ARZ LOS, Vascular Interventional FLA LOS Specimen (Source) Anatomical Collection Method Collection Time Re ceived Time Location / / Volume Laterality 10/25/2018 5:45 PM SCALEMAKER Impressions 10/25/2018 6:15 PM SCALEMAKER IMPRESSION: 1. Left upper extremity dialysis fistula [...] need reintervention. NR Narrative 10/25/2018 6:15 PM SCALEMAKER EXAM: IR DIALYSIS FISTULA DECLOT STENT LEFT [...] in the upper arm . A 6 Andorran short sheath was placed. The patient was [...] fashion oriented towards the shoulder. A 6 Andorran 10 cm s kimberli was placed. Contrast [...] The sheath was upsized to a 7 Andorran 23 cm B rite Tip sheath and [...] in the upper arm . A 6 Andorran short sheath was placed. The patient was [...] fashion oriented towards the shoulder. A 6 Andorran 10 cm s kimberli was placed. Contrast [...] The sheath was upsized to a 7 Andorran 23 cm B rite Tip sheath and [...] the juxta-anastomotic region may need reintervention. NR Brody Rasheed Jr. IR PROCEDURES documented in this encounter Visit Diagnoses Diagnosis Complication Dialysis Fistula Subsequent Chronic Kidney Disease Stage 5 Glomerula r Filtration Rate Less Than 15 (HCC) documented in this encounter Administered Medications Inactive Administered Medications - up to 3 most recent administrations Medication Order MAR Action Action Date Dose Rate Site alteplase injection (CATHFLO Given 10/25/2018 12:59 PM SCALEMAKER 2 mg Other ACTIVASE) Code/trauma/sedation medication, Starting on Sun10/25/18 at 1259 alteplase injection (CATHFLO ACTIVASE) Given 10/25/2018 1:25 PM SCALEMAKER 2 mg Other Code/trauma/sedation medication, Starting on Sun10/25/18 at 1325 ceFAZolin in dextrose (iso-os) IVPB (ANC EF) New Bag 10/25/2018 2:22 PM SCALEMAKER 2 g Administer over 30 Minutes, Code/trauma/sedation continuous med, Starting on Sun10/25/18 at 1422 fentaNYL injection 25 mcg (SUBLIMAZE) Given 10/25/2018 2:38 PM SCALEMAKER 25 mcg 25 mcg, intravenous, Every 2 min PRN, sedation, or pain before and during sedation procedure, Starting on Sun10/25/18 at 1131, Intraprocedure (RAD), Administer over 1 minute immediately prior to the procedure. May repeat every 2 minutes to a maximum of 200 mcg, until pain score of 3 or less, or until the patient meets the pain comfort goal. Do not give if respiratory rate is less than 8 breaths/minute Given 10/25/2018 2:33 PM SCALEMAKER 25 mcg Given 10/25/2018 1:53 PM SCALEMAKER 50 mcg flumazenil injection 0.2 mg (ROMAZICON) 0.2 mg, intravenous, Once as needed, rev ersal, Starting on Sun10/25/18 at 1131, For 1 dose, Intraprocedure (RAD), Administer once if patient has a RASS score of -4, -5 and has a respiratory rate less than 8 breaths/minute. heparin (porcine) 1,000 unit/mL injectio n Given 10/25/2018 12:47 PM 6,000 Units Code/trauma/sedation medication, Starting SCALEMAKER on Sun10/25/18 at 1247 heparin (porcine) 1,000 unit/mL injectio n Given 10/25/2018 1:15 PM 3,000 Units Code/trauma/sedation medication, Starting SCALEMAKER on Sun10/25/18 at 1315 heparin (porcine) 1,000 unit/mL injectio n Given 10/25/2018 1:42 PM 2,000 Units Code/trauma/sedation medication, Starting SCALEMAKER on Sun10/25/18 at 1342 heparin (porcine) 1,000 unit/mL injectio n Given 10/25/2018 2:27 PM 4,000 Units Code/trauma/sedation medication, Starting SCALEMAKER on Sun10/25/18 at 1427 iodixanol 320 mg iodine/mL injection Given 10/25/2018 2:53 PM CS T 110 mL (VISIPAQUE) Code/trauma/sedation medication, Starting on Sun10/25/18 at 1453 lidocaine-sodium bicarbonate 1%-8.4% inj ection Given 10/25/2018 2:53 PM SCALEMAKER 10 mL infiltration, Code/trauma/sedation medication, Starting on Sun10/25/18 at 1453 midazolam (PF) injection 0.5 mg (VERSED) Given 10/25/2018 2:33 PM SCALEMAKER 0.5 mg 0.5 mg, intravenous, Every 2 min PRN, sedation, Starting on Sun10/25/18 at 1131, Intraprocedure (RAD), If RASS greater than -3, give additional dose(s) of 0.5 mg IV every 2 minutes for a maximum of 5 mg. Do not give if respiratory rate is less than 8 breaths/minute. Given 10/25/2018 1:36 PM SCALEMAKER 0.5 mg Given 10/25/2018 1:11 PM SCALEMAKER 0.5 mg NaCl 0.9% infusion New Bag 10/25/2018 12:29 PM SCALEMAKER 20 mL/hr 20 mL/hr 20 mL/hr, intravenous, Once as needed, to keep vein open, Starting on Sun10/25/18 at 1131, For 1 dose, Intraprocedure (RAD) naloxone injection 0.2 mg (NARCAN) 0.2 mg, intravenous, Once as needed, res piratory depression, Starting on Sun10/25/18 at 1131, For 1 dose, Intraprocedure (RAD ), Administer once if patient has a RASS score of -4, -5 and has a respiratory rate less than 8 breaths/minute. documented in this encounter Active and Recently Administered Medications Times are shown in SCALEMAKER. PRN Medication Order 10/23/2018 10/24/2018 10/25/2018 alteplase injection (CATHFLO ACTIVASE) (COMPLETED) 1259 (Given - Provider: Jaimn Christianson M.D. - Comment: fistula de-clot) Code/trauma/sedation medication, Starting Sun10/25/18 at 1259 alteplase injection (CATHFLO ACTIVASE) (COMPLETED) 1325 (Given - Provider: Jamin Christianson M.D. - Comment: into fistula during fistulagram) Code/trauma/sedation medication, Starting Sun10/25/18 at 1325 ceFAZolin in dextrose (iso-os) IVPB (ANCEF) (COMPLETED) 1422 (New Bag - Provider: Comfort Murcia R.N.) Administer over 30 Minutes, Code/trauma/ sedation continuous med, Starting Sun10/25/18 at 1422 fentaNYL injection 25 mcg (SUBLIMAZE) 1229 (Given - Provider: Comfort Murcia R.N.)1233 (Given - Provider: Comfort Murcia R.N.)1238 (Given - Provider: Comfort Murcia R.N.)1245 (Given - Provider: Comfort Murcia R.N.)1254 (Given - Provider: Comfort Murcia R.N.) 25 mcg, intravenous, Every 2 min PRN, se dation, or pain before and during sedation procedure, Starting Sun10/25/18 at 1131, Intraprocedure (RAD), Administer over 1 minute immediately prior to the procedu 1303 (Given - Provider: Comfort Murcia, R.N.)1311 (Given - Provider: Comfort Murcia, R.N.)1336 (Given - Provider: Comfort Murcia R.N.)1353 (Given - Provider: Ann GuerreroN.)1433 (Given - Provider: Comfort Murcia R.N.) re. May repeat every 2 minutes to a maxi mum of 200 mcg, until pain score of 3 or less, or until the patient meets the pain comfort goal. Do not give if respiratory rate is less than 8 breaths/minute 1438 (Given - Provider: Comfort Murcia R.N.) flumazenil injection 0.2 mg (ROMAZICON) 0.2 mg, intravenous, Once as needed, rev ersal, Starting Sun10/25/18 at 1131, For 1 dose, Intraprocedure (RAD), Administer once if patient has a RASS score of -4, -5 and has a respiratory rate less than 8 breaths/minute. heparin (porcine) 1,000 unit/mL injection (COMPLETED) 1247 (Given - Provider: Comfort Murcia R.N.) Code/trauma/sedation medication, Starting Sun10/25/18 at 1247 heparin (porcine) 1,000 unit/mL injection (COMPLETED) 1315 (Given - Provider: Comfort Murcia R.N.) Code/trauma/sedation medication, Starting Sun10/25/18 at 1315 heparin (porcine) 1,000 unit/mL injection (COMPLETED) 1342 (Given - Provider: Comfort Murcia R.N.) Code/trauma/sedation medication, Starting Sun10/25/18 at 1342 heparin (porcine) 1,000 unit/mL injection (COMPLETED) 1427 (Given - Provider: Comfort Murcia R.N.) Code/trauma/sedation medication, Starting Sun10/25/18 at 1427 iodixanol 320 mg iodine/mL injection (VISIPAQUE) (COMPLETED) 1453 (Given - Provider: Jamin Christianson M.D.) Code/trauma/sedation medication, Starting Sun10/25/18 at 1453 lidocaine-sodium bicarbonate 1%-8.4% injection (COMPLETED) 1453 (Given - Provider: Jamin Christianson M.D.) infiltration, Code/trauma/sedation medication, Starting Sun at 1453 midazolam (PF) injection 0.5 mg (VERSED) 1229 (Given - Provider: Comfort Murcia R.N.)1233 (Given - Provider: Comfort Murcia R.N.)1238 (Given - Provider: Comfort Murcia R.N.)1245 (Given - Provider: Comfort Murcia R.N.)1254 (Given - Provider: Comfort Murcia R.N.) 0.5 mg, intravenous, Every 2 min PRN, se dation, Starting Sun10/25/18 at 1131, Intraprocedure (RAD), If RASS greater than -3, give additional dose(s) of 0.5 mg IV every 2 minutes for a maximum of 5 mg. Do 1303 (Given - Provider: Comfort Murcia R.N.)1311 (Given - Provider: Comfort Murcia R.N.)1336 (Given - Provider: Comfort Murcia R.N.)1433 (Given - Provider: Comfort Murcia R.N.) not give if respiratory rate is less than 8 breaths/minute. NaCl 0.9% infusion (COMPLETED) 1 229 (New Bag - Provider: Comfort Murcia R.N.) 20 mL/hr, intravenous, at 20 mL/hr, Once as needed, to keep vein open, Starting Sun10/25/18 at 1131, For 1 dose, Intraprocedure (RAD) naloxone injection 0.2 mg (NARCAN) 0.2 mg, intravenous, Once as needed, res piratory depression, Starting Sun10/25/18 at 1131, For 1 dose, Intraprocedure (RAD), Administer once if patient has a RASS score of -4, -5 and has a respiratory rate less than 8 breaths/minute. documented in this encounter Additional Health Concerns Assessment Noted Time PHQ-9 Depression Total Score: 3 09/13/2017 7:47 AM SCALEMAKER documented as of this encounter
--- OUTSIDE RECORDS SUMMARY | 2022-05-25 13:28 | XMS_ITS | Encounter Summary ---
:1960 Author Organization [facility] Address [address] [place] [address] Care Team Providers Name Role Phone Unavailable Primary Care Provider Unavailable Encounter Details Date Type Department Care Team Description 09/05/2018 Ancillary Procedure Department of Urology Social History [...] How often do you attend lutheran or roman catholic 1 to 4 times [...] Care Team Description 06/01/2022 Telemedicine Pharmacy An Nihcolas APRN, C.NDaviPDavi, Michelle.N.P., M.S.N. [address] [place] [address] [phone] (Wo rk) 07/31/2022 Lab Laboratory Medicine Tony Rubalcava M. B., Sydnie, Mukund [address] [place] [address] [phone] (Wo rk) 07/31/2022 Lab Laboratory Medicine Tony Rubalcava M. B., Sydnie, Mukund [address] [place] [address] [phone] (Wo rk) 07/31/2022 Office Visit Transplant Tony Rubalcava M.B., Sydnie, MDebra [address] [place] [address] [phone] (Wo rk) 07/31/2022 Appointment Radiology Tony Rubalcava M.B., ChBurke, Mukund [address] [place] [address] [phone] (Wo rk) 08/01/2022 Office Visit Transplant Tony Rubalcava M.B., Sydnie, MDebra [address] [place] [address] 55 [phone] (Wo rk) 08/01/2022 Clinical Support Transplant Tony Rubalcava M.B., Sydnie, MDebra [address] [place] [address] 55 [phone] (Wo rk) documented as of this encounter Procedures Procedure Name Priority Date/Time Associated Diagnosis Comme nts UROLOGY IMAGE EXAM Routine 09/05/2018 2:45 PM Res ults for this WEATHERIZATION OPERATIONS MANAGER procedure are i n the results section. documented in this encounter Results UROLOGY IMAGE EXAM (09/05/2018 2:45 PM WEATHERIZATION OPERATIONS MANAGER) Specimen (Source) Anatomical Collection Method Collection Time Re ceived Time Location / / Volume Laterality 09/05/2018 2:42 PM WEATHERIZATION OPERATIONS MANAGER Narrative [facility] - 09/05/2018 3:28 PM WEATHERIZATION OPERATIONS MANAGER This order has been created and auto-finalized [...] Depression Total Score: 3 09/13/2017 7:47 AM WEATHERIZATION OPERATIONS MANAGER documented as of this encounter
--- OUTSIDE RECORDS SUMMARY | 2022-05-25 13:28 | XMS_ITS | Encounter Summary ---
:1960 Author Organization [facility] Address [address] [place] [address] Care Team Providers Name Role Phone Unavailable Primary Care Provider Unavailable Reason for Visit Reason Comments Med Refill Encounter Details Date Type Department Care Team Description 09/27/2018 [facility] Nguyen R.N. Med Refill for Transplantation and [address] [place] [address] [place] [address] [place], [place] [address] [place] [phone] Social History Tobacco Use Types Packs/Day [...] How often do you attend anglican or restoration 1 to 4 times per [...] slept in a care home (including now)? Sex Assigned at Date Recorded Female 12/23/2021 4:18 AM CDT documented as of this encounter Plan of Treatment Upcoming Encounters Date Type Specialty Care Team Description 06/01/2022 Telemedicine Pharmacy An Nicholas APRN C.N.P., D.N.P., M.S.N. [address] [place] [address] [phone] (Wo rk) 07/31/2022 Lab Laboratory Medicine Tony Rubalcava M. B., Sydnie, MDebra [address] [place] [address] [phone] (Wo rk) 07/31/2022 Lab Laboratory Medicine Tony Rubalcava M. B., Sydnie, Mukund [address] [place] [address] 55 [phone] (Wo rk) 07/31/2022 Office Visit Transplant Tony Rubalcava M.B., ChBurke, MDebra [address] [place] [address] 55 [phone] (Wo rk) 07/31/2022 Appointment Radiology Tony Rubalcava M.B., Sydnie, MDebra [address] [place] [address] [phone] (Wo rk) 08/01/2022 Office Visit Transplant Tony Rubalcava M.B., Sydnie, MDebra [address] [place] [address] [phone] (Wo rk) 08/01/2022 Clinical Support Transplant Tony Rubalcava M.B., Sydnie, Shashi. 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
--- OUTSIDE RECORDS SUMMARY | 2022-05-25 13:29 | XMS_ITS | Encounter Summary ---
:1960 Author Organization [facility] Address [address] [place] [address] Care Team Providers Name Role Phone Unavailable Primary Care Provider Unavailable Encounter Details Date Type Department Care Team Description 06/26/2018 Documentation Division of Nephrology and Debora Regalado R.N. Hypertension in [place], [facility] [address] [place], [place] 200 [facility] [address] [place] [address] [phone] Social History Tobacco Use Types Packs/Day Years [...] encounter Progress Notes Debora Diehl R.N. - 06/26/2018 10:[address] Martínez, [phone] CHIEF COMPLAINT/PURPOSE OF VISIT REASON FOR REFERRAL: Probable stenosis iqugmiut arterial venous fistula - fistulogram with TOOL ROOM GEAR MACHINE OPERATOR HISTORY OF PRESENT ILLNESS ACCESS: [place] AV Fistula Date placed - 01/09/17 Provider - Dr. Vanegas LOCATION OF ACCESS: Left Brachial Basilic PERTINENT PROCEDURAL HISTORY: Patient referred for fistulogram and angioplasty as indicated. She is being referred due to pain being noted at the venous portion of the fistula along with diminished thrill and bruit in that area as well. Her last fistulogram was on 03/26/18. She has had 3 fistulograms onthis fistula all requiring TOOL ROOM GEAR MACHINE OPERATOR. She dial[facility]zes at the [facility] on a Sunday, Sunday and Sunday schedule. DIABETES: Patient states that she does not have diabetes, that this was incorrectly entered into her medical history. ?? ANTICOAGULATION: Takes no anticoagulation medications. ?? LABORATORY RESULTS: Current Labs being faxed to us from her dialysis unit. IMPRESSION/REPORT/PLAN SPECIFIC PATIENT INSTRUCTIONS: [facility] 07/02/18 at 9:00 am. This information was faxed to the patient's dialysis unit who will share these instructions with her. You must have a human factors ergonomist to drive you home due to the [...] to three fourths of the day in [place] for this procedure. There is generally some waiting involved prior to the procedure. Post Access Instructions: Resume usual dialysis schedule. [employer] documented in this encounter Plan of Treatment Upcoming Encounters Date Type Specialty Care Team Description 06/01/2022 Telemedicine Pharmacy An Nicholas APRN C.N.PDavi, D.N.P., M.S.N. [address] [place] [address] 55 [phone] (Nicolas wen) 07/31/2022 Lab Laboratory Medicine Tony Rubalcava M. B., Sydnie, MDebra [address] [place] [address] 55 [phone] (Nicolas wen) 07/31/2022 Lab Laboratory Medicine Tony Rubalcava M. B., Sydnie, MDebra [address] [place] [address] 55 [phone] (Nicolas wen) 07/31/2022 Office Visit Transplant Tony Rubalcava M.B., ChBurke, MDaviDDavi [address] [place] [address] 55 [phone] (Nicolas wen) 07/31/2022 Appointment Radiology Tony Rubalcava M.B., ChBurke, MDebra [address] [place] [address] 55 [phone] (Nicolas wen) 08/01/2022 Office Visit Transplant Tony Rubalcava M.B., Sydnie, MDebra [address] [place] [address] 55 [phone] (Nicolas wen) 08/01/2022 Clinical Support Transplant Tony Rubalcava M.B., Mukund Otoole [address] [place], [place] 55 [phone] (Wo rk) documented as of this encounter Visit Diagnoses Not on filedocumented in this encounter Additional Health Concerns Assessment Noted Time PHQ-9 Depression Total Score: 3 09/13/2017 7:47 AM [employer]IP documented as of this encounter
--- OUTSIDE RECORDS SUMMARY | 2022-05-25 13:29 | XMS_ITS | Encounter Summary ---
:[address] [facility] Address [address] [place] [address] Care Team Providers Name Role Phone Unavailable Primary Care Provider Unavailable Encounter Details Date Type Department Care Team Description 05/14/2018 Anesthesia Event Outpatient Procedure Jase Persaud, Center in [place], [facility], SOFTWARE DEVELOPMENT INTERN [place] [address] [address] [facility] [address] [place] [address] [phone] (Wo rk) Anesthesia Record Procedure Summary Procedure Name Responsible Anesthesia Start Anesthesia Stop Time Anesthesiologist Time EXCHANGE URETERAL Bree Persaud, OPHTHALMIC TECH, 05/14/18 1349 1449 STENT. (Right) SOFTWARE DEVELOPMENT INTERN Events Date Time Event Comment 05/14/2018 1349 An Start Machine/Equipmen t Checked Infection Precautions Foll owed Procedure/Site Verified NPO Sta tus Verified Supine Standard ASA Mon itors Applied 1349 In Room 1357 1400 Turnover to Proceduralist 1418 Proc Start 1443 Turnover to ANE Staff 1443 Proc Fin 1449 an stop data 1449 An End I completed my h andoff to the receiving staff during [facility] we 1. Identified the patient 2. Ident ified the responsible provider 3. Revi ewed the pertinent medical history 4. Discu ssed the surgical course 5. Reviewed intra-o p anesthesia management and issues during an esthesia 6. Set expectations for post-procedure period 7. Allowed opportun ity for questions and acknowledgement of understanding. 1450 Out of Room Name Total fentanyl injection 50 mcg/mL 50 mcg propofol 10 mg/mL infusion 391.4 mg propofol 10 mg/mL injection 30 mg lidocaine 2% (mg) injection 50 mg ceFAZolin injection 2 g (ANCEF) 2 g ondansetron PF 4 mg/2 mL injection 4 mg lactated ringers 0 mL Agents No agents on file. Blood No blood administrations on file. Lines, Drains, and Airways Type Details Placement Removal Retired (Do not use) Placement Date: 08/24/03 0000 by 09/16/19 1 [phone] by Hemodialysis AV Access 08/24/03 (Elvia Wade Taylor, Katherine M, [place], [place]); R.N. R.N. Removal Date: 09/16/19; Removal Time: 1422 Peripheral IV Placement Date: 05/14/18 1326 by 05/14/18 1601 b y 05/14/18; Placement Cecilia Avilez Sanden, Kaelyn M, Time: 1326; Catheter R.N. R.N. Size: 22 G; Orientation: Right; Location: Hand; Site Prep: Alcohol; Technique: Anatomical landmarks; Inserted by: WILMER Vera; Insertion Attempts: 1; Removal Date: 05/14/18; Removal Time: 1601; Removal Reason: Per protocol documented in this encounter Social History Tobacco [...] How often do you attend uatsdin or baptism 1 to 4 times per [...] encounter OR Notes Anesthesia Postprocedure Evaluation - Bree Persaud APRN, CRNA - 05/14/2018 2:56 PM CDT Patient: Shabnam Wray Procedure Summary Date: 05/14/18 Room / Location: [place] [address] / [facility] in [place], [place] Anesthesia Start: 1349 Anesthesia Stop: 1449 Procedures: EXCHANGE URETERAL STENT. (Right ) RETROGRADE PYELOGRAM. (Right ) CYSTOURETHROSCOPY (N/A ) Diagnosis: Obstruction Ureter (Obstruction Ureter [N13.5].) Surgeon: Geraldo Spear M.D. Responsible Provider: Bree Persaud APRN, CRNA Anesthesia Type: MAC ASA Status: 3 Anesthesia Type: MAC Last vitals BP 113/65 (05/14/18 1330) Temp 36.6 ??C (05/14/18 1319) Pulse 66 (05/14/18 1332) Resp 18 (05/14/18 1341) SpO2 94 % (05/14/18 1332) Anesthesia Post Evaluation 05/14/2018 2:56 PM Patient Disposition: dismissal Cardiovascular status: hemodynamics (HR & BP) acceptable Respiratory status: patent airway with spontaneous effort Temperature: normothermic Oxygen requirements: room air Level of consciousness: awake Pain score: pain adequately controlled and/or at baseline Post Op nausea/vomiting: none Hydration status: euvolemic Anesthesia Preprocedure Evaluation - Elena Espino M.D. - 05/14/2018 1:56 PM CDT Anesthesia Pre-Evaluation Pertinent components of the patient's history including current problem list, medical history, surgical history, family history, social history, medications and allergies were reviewed and updated as appropriate. The patient was examined and the Pre-op diagnosis, planned procedure, and H&P were reviewed and remain unchanged. PROBLEM LIST Relevant Problems RENAL/REPRO (+) Chronic Kidney Disease NOS (+) Chronic Kidney Disease Stage 3 Glomerular Filtration Rate 30 To 59 (+) Chronic Kidney Disease Stage 4 Glomerular Filtration Rate 15-29 (HCC) (+) Chronic Kidney Disease Stage 5 Glomerular Filtration Rate Less Than 15 (HCC) ENDO (+) Diabetes Mellitus Type 2 (HCC) Other (+) Transplant Renal (HCC) OBJECTIVE PHYSICAL EXAMINATION Airway (HEENT) Mallampati: III TM Distance: >3 FB Neck ROM: Full Cardiovascular Rhythm: Regular Functional Capacity: >4 METS Pulmonary Pulmonary Assessment: Clear Neurological Neurologic Assessment: Alert and oriented X 3 Dental Dental Assessment: Dentition intact ASSESSMENT / PLAN ANESTHESIA PLAN ASA: 3 Anesthesia Plan: MAC Patient seen and allergies reviewed; anesthesia plan and risks discussed directly with patient / legal guardian, or through an director of land acquisition; patient evaluated and approved for anesthesia / sedation. The use of blood products not discussed documented in this encounter Miscellaneous Notes Addendum Note - Bree Persaud APRN, CRNA - 05/15/2018 9:22 AM CDT Addendum created 05/15/18921 by Bree Persaud APRN, CRNA Anesthesia Intra Flowsheets edited documented in this encounter Plan of Treatment Upcoming Encounters Date Type Specialty Care Team Description 06/01/2022 Telemedicine Pharmacy An Nicholas APRN, C.N.P., D.N.P., M.S.N. [address] [place] [address] [phone] (Wo rk) 07/31/2022 Lab Laboratory Medicine Tony Rubalcava M. B., Sydnie, Mukund [address] [place] [address] [phone] (Wo rk) 07/31/2022 Lab Laboratory Medicine Tony Rubalcava M. B., Sydnie, Mukund [address] [place] [address] [phone] (Wo rk) 07/31/2022 Office Visit Transplant Tony Rubalcava M.B., Sydnie, Mukund [address] [place] [address] [phone] (Wo behzad) 07/31/2022 Appointment Radiology Tony Rubalcava M.B., Sydnie, Mukund [address] [place] [address] [phone] (Nicolas wen) 08/01/2022 Office Visit Transplant Tony Rubalcava M.B., Sydnie, Mukund [address] [place] [address] [phone] (Wo behzad) 08/01/2022 Clinical Support Transplant Tony Rubalcava M.B., Sydnie, Mukund [address] [place] [address] [phone] (Nicolas wen) documented as of this encounter Visit Diagnoses Not on filedocumented in this encounter Administered Medications Inactive Administered Medications - up to 3 most recent administrations Medication Order MAR Action Action Date Dose Rate Site ceFAZolin injection 2 g (ANCEF) Given 05/14/2018 2:09 PM CDT 2 g 2 g, intravenous, Once, On Sun05/14/18 at 1345, For 1 dose, Intra-Op, Preoperatively within 1 hour prior to surgical incision. Adminster IV push over 3 minutes. Add 5 mL NS to 1 gram vial for a final concentration of 200 mg/mL., Drug Monitoring Program: Pharmacist to adjust medication order based on comorbities and indication., Indications: Prophylaxis, surgical fentaNYL injection (SUBLIMAZE) Given 05/14/2018 1:53 PM CDT 50 mcg intravenous, As needed, severe pain or score 7-10 of 10, Starting on 05/14/18 at 1353, Anesthesia Intra-op lactated ringers New Bag 05/14/2018 1:53 PM CDT 20 mL/hr, intravenous, Continuous, Starting on e 05/14/18 at 1400 lidocaine (PF) (cardiac) injection Given 05/14/2018 1:51 PM CDT 50 mg intravenous, As needed, Starting on 05/14/18 at 1351, Anesthesia Intra-op ondansetron (PF) injection (ZOFRAN) Given 05/14/2018 1:53 PM CDT 4 mg As needed, nausea, vomiting, Starting on 05/14/18 at 1353, Anesthesia Intra-op propofol 10 mg/mL infusion Rate/Dose 05/14/2018 2:02 80 mcg/kg/min 4 5.6 mL/hr (DIPRIVAN) Change PM CDT intravenous, Continuous Infusion: Per Instructions PRN, Starting on 05/14/18 at 1355, Anesthesia Intra-op New Bag 05/14/2018 1:55 PM CDT 120 mcg/kg/min 68.4 mL/hr propofol injection (DIPRIVAN) Given 05/14/2018 1:55 PM CDT 30 mg intravenous, As needed, Starting on 05/14/18 at 1355, Anesthesia Intra-op documented in this encounter Additional Health Concerns Assessment Noted Time PHQ-9 Depression Total Score: 3 09/13/2017 7:47 AM SHIP'S COOK documented as of this encounter
--- OUTSIDE RECORDS SUMMARY | 2022-05-25 13:29 | XMS_ITS | Encounter Summary ---
:1960 Author Organization [facility] Address [address] [place] [address] Care Team Providers Name Role Phone Unavailable Primary Care Provider Unavailable Encounter Details Date Type Department Care Team Description 05/14/2018 Ancillary Procedure Department of Urology Social History [...] How often do you attend confucianism or muslim 1 to 4 times per [...] or slept in a assisted (including now)? Sex Assigned at Date Recorded Female 12/23/2021 4:18 AM CDT documented as of this encounter Plan of Treatment Upcoming Encounters Date Type Specialty Care Team Description 06/01/2022 Telemedicine Pharmacy An Nicholas APRN, C.NDaviPDavi, Michelle.N.P., M.S.N. [address] [place] [address] [phone] (Wo rk) 07/31/2022 Lab Laboratory Medicine Tony Rubalcava M. B., Sydnie, Mukund [address] [place] [address] [phone] (Wo rk) 07/31/2022 Lab Laboratory Medicine Tony Rubalcava M. B., Sydnie, Mukund [address] [place] [phone] (Wo rk) 07/31/2022 Office Visit Transplant Tony Rubalcava M.B., Sydnie, MDebra [address] [place] [phone] (Wo rk) 07/31/2022 Appointment Radiology Tony Rubalcava M.B., ChBurke, Mukund [address] [place] [address] [phone] (Wo rk) 08/01/2022 Office Visit Transplant Tony Rubalcava M.B., Sydnie, MDebra [address] [place] [address] [phone] (Wo rk) 08/01/2022 Clinical Support Transplant Tony Rubalcava M.B., Sydnie, MDebra [address] [place] [address] [phone] (Wo rk) documented as of this encounter Procedures Procedure Name Priority Date/Time Associated Diagnosis Comme nts UROLOGY IMAGE EXAM Routine 05/14/2018 2:00 PM Res ults for this CDT procedure are i n the results section. documented in this encounter Results UROLOGY IMAGE EXAM (05/14/2018 2:00 PM CDT) Specimen (Source) Anatomical Collection Method Collection Time Re ceived Time Location / / Volume Laterality 05/14/2018 2:00 PM CDT Narrative [facility]IMS - 05/14/2018 2:51 PM CDT This order has been created [...] Depression Total Score: 3 09/13/2017 7:47 AM SEAFOOD PREPARER documented as of this encounter
--- OUTSIDE RECORDS SUMMARY | 2022-05-25 13:29 | XMS_ITS | Encounter Summary ---
:1960 Author Organization [facility] Address [address] [place] [address] Care Team Providers Name Role Phone Unavailable Primary Care Provider Unavailable Encounter Details Date Type Department Care Team Description 06/26/2018 Orders Only Division of Nephrology Steve Martínez Kidney Disease Stage 5 Glomerular Filtration Rate Less Than 15 (HCC) (Primary Dx); and Hypertension in [place] Garcia D.O. Complication Dialysis Fistula Subsequent [place], [place] [address] [facility] [address] [place] [address] [phone] Social History Tobacco Use Types Packs/Day Years [...] How often do you attend rastafarian or gnosticism 1 to 4 times per [...] Nicholas APRN C.N.P., D.N.P., M.S.N. [address] [place] [address] [phone] (Nicolas wen) 07/31/2022 Lab Laboratory Medicine Tony Rubalcava M. B., ChDaviBDavi, M.D. [address] [place] [address] [phone] (Nicolas wen) 07/31/2022 Lab Laboratory Medicine Tony Rubalcava M. B., Ch.BDavi, M.D. [address] [place] [address] [phone] (Nicolas wen) 07/31/2022 Office Visit Transplant Tony Rubalcava M.B., ChDaviB., M.D. [address] [place] [address] [phone] (Nicolas wen) 07/31/2022 Appointment Radiology Tony Rubalcava M.B., ChDaviBDavi, MDaviD. [address] [place] [address] [phone] (Nicolas wen) 08/01/2022 Office Visit Transplant Tony Rubalcava M.B., Mukund [place] [address] [place], [place] 55 [phone] (Nicolas wen) 08/01/2022 Clinical Support Transplant Tony Rubalcava M.B., Mukund [place] [address] [place], [place] 55 [phone] (Nicolas wen) documented as of this encounter Results IR Dialysis Fistulagram Left (07/02/2018 11:24 AM PUBLIC WORKS INSPECTOR) Anatomical Region Laterality Modality Body, Vascular Interventional RST LOS, Vascular Left X-Ray Angiography Interventional ARZ LOS, Vascular Interventional FLA LOS Specimen (Source) Anatomical Collection Method Collection Time Re ceived Time Location / / Volume Laterality 07/02/2018 11:40 AM PUBLIC WORKS INSPECTOR Impressions 07/02/2018 12:56 PM PUBLIC WORKS INSPECTOR IMPRESSION: ??Widely patent left brachiobasilic dialysis fistula. No intervention performed. EP Narrative 07/02/2018 12:56 PM PUBLIC WORKS INSPECTOR EXAM: IR DIALYSIS FISTULAGRAM LEFT CLINICAL HISTORY: 49-year-old female who dialyzes through a left upper extremity brachiobasilic fistula. The patient repo rts pain near the level of the mid-humerus during dialysis. ??The pain began 3 weeks ago, has not changed significantly in the interim, and is rat ed as a 3-4/10 during dialysis sessions. No pain radiation down the left arm. ?? Robust palpable thrill of the fistula. TECHNIQUE: The left upper external was p repped and draped in sterile fashion. Under ultrasound guidance, a micropunctu re needle was used to access the outflow vein. ??Patency was demonstrated and an image was stored. ??A micropuncture sheath was placed. Fistulogram demonstrated a w idely patent dialysis fistula. Contrast was refluxed across the anastomosis and demonstrated patency of the anastomosis. No focal stenosis. ??No intervention per formed. Sheath removed. Hemostasis with manual compression. No immediate complic ations. PREPROCEDURE: Patient seen, evaluated, h istory reviewed, [...] time was: 31 m inutes. Procedure Note Jamin Christianson M.D. - 07/02/2018Form atting of this note might be different from the original. EXAM: IR DIALYSIS FISTULAGRAM LEFT CLINICAL HISTORY: 49-year-old female who dialyzes through a left upper extremity brachiobasilic fistula. The patient repo rts pain near the level of the mid-humerus during dialysis. The pain be inés 3 weeks ago, has not changed significantly in the interim, and is rat ed as a 3-4/10 during dialysis sessions. No pain radiation down the left arm. Ro bust palpable thrill of the fistula. TECHNIQUE: The left upper external was p repped and draped in sterile fashion. Under ultrasound guidance, a micropunctu re needle was used to access the outflow vein. Patency was demonstrated and an im age was stored. A micropuncture sheath was placed. Fistulogram demonstrated a w idely patent dialysis fistula. Contrast was refluxed across the anastomosis and demonstrated patency of the anastomosis. No focal stenosis. No intervention perfo rmed. Sheath removed. Hemostasis with manual compression. No immediate complic ations. PREPROCEDURE: Patient seen, evaluated, h istory reviewed, and approved for sedation. Airway, heart, and lung exam s atisfactory for sedation. Discussed risks, benefits, alternatives for proced ure, and/or sedation. The roles and responsibilities of care team members, r kendelldents, and fellows were discussed. Patient understands information [...] sedation time was: 31 m inutes. IMPRESSION: Widely patent left brachioba silic dialysis fistula. No intervention performed. EP Steve Martínez Jr., D.O. MALOU IR [...] Depression Total Score: 3 09/13/2017 7:47 AM PUBLIC WORKS INSPECTOR documented as of this encounter
--- OUTSIDE RECORDS SUMMARY | 2022-05-25 13:29 | XMS_ITS | Encounter Summary ---
:1960 Author Organization [facility] Address [address] [place] [address] Care Team Providers Name Role Phone Unavailable Primary Care Provider Unavailable Encounter Details Date Type Department Care Team Description 07/01/2018 Orders Only Division of Nephrology and Joel Fisher, Hypertension in [place], ENTERPRISE INTEGRATION ARCHITECT, C.N.P., M.S.N. [place] [address] [facility] 200 [place] [address] [phone] (Wo rk) Social History Tobacco Use Types [...] How often do you attend mandaen or yarsanism 1 to 4 times per [...] Nicholas APRN C.N.P., D.N.P., M.S.N. [address] [place] [address] [phone] (Wo rk) 07/31/2022 Lab Laboratory Medicine oTny Rubalcava M. B., Sydnie, MDebra [address] [place] [address] [phone] (Wo rk) 07/31/2022 Lab Laboratory Medicine Tony Rubalcava M. B., Sydnie, Mukund [address] [place] [address] 55 [phone] (Wo rk) 07/31/2022 Office Visit Transplant Tony Rubalcava M.B., ChBurke, MDebra [address] [place] [address] 55 [phone] (Wo rk) 07/31/2022 Appointment Radiology Tony Rubalcava M.B., Sydnie, MDebra [address] [place] [address] 55 [phone] (Wo rk) 08/01/2022 Office Visit Transplant Tony Rubalcava M.B., SydnieMukund [address] [place] [address], [place] 55 [phone] (Wo rk) 08/01/2022 Clinical Support Transplant Tony Rubalcava M.B., Mukund [place] [address] [place], [place] 55 [phone] (Wo rk) documented as of this encounter Visit Diagnoses Not on filedocumented in this encounter Additional Health Concerns Assessment Noted Time PHQ-9 Depression Total Score: 3 09/13/2017 7:47 AM FAN BLADE TRUER documented as of this encounter
--- OUTSIDE RECORDS SUMMARY | 2022-05-25 13:29 | XMS_ITS | Encounter Summary ---
:1960 Author Organization [facility] Address [address] [place] [address] Care Team Providers Name Role Phone Unavailable Primary Care Provider Unavailable Encounter Details Date Type Department Care Team Description 07/18/2018 Clinical Communication Department of Urology Miguelito Diehl, in [place] [address] [place] 200 [place] [address] [phone] Social History Tobacco Use Types Packs/Day Years [...] often do you attend oriental orthodox or latter day 1 to 4 times [...] Nicholas APRN C.N.P., D.N.P., M.S.N. [address] [place] [address] [phone] (Wo rk) 07/31/2022 Lab Laboratory Medicine Tony Rubalcava M. B., Sydnie, MDebra [address] [place] [address] [phone] (Wo rk) 07/31/2022 Lab Laboratory Medicine Tony Rubalcava M. B., Sydnie, Mukund [address] [place] [address] [phone] (Wo rk) 07/31/2022 Office Visit Transplant Tony Rubalcava M.B., ChBurke, MDebra [address] [place] [address] 55 [phone] (Wo rk) 07/31/2022 Appointment Radiology Tony Rubalcava M.B., ChBurke, MDebra [address] [place] [address] 55 [phone] (Wo rk) 08/01/2022 Office Visit Transplant Tony Rubalcava M.B., Sydnie, MDebra [address] [place] [address] [phone] (Wo rk) 08/01/2022 Clinical Support Transplant BentallTony M.B., Sydnie, Shashi. [address] [place], [place] 55 [phone] (Wo rk) documented as of this encounter Results (ABNORMAL) Urinalysis with Microscopic (09/03/2018 2:43 PM VARNISHER) [facility] g[facility] Method Time Signature Source Midstream 09/03/2018 [facility] 2:43 PM VARNISHER [facility] Appearance Normal Normal 09/03/2018 [facility] 4:32 PM [facility] Osmolality, U 390 150 - 1150 09/03/2018 [facility] mOsm/kg 3:46 PM [facility] pH, U 7.4 4.5 - 8.0 09/03/2018 [facility] 3:46 PM [facility] Comment: ----ADDITIONAL INFORMATION---- This test was developed and its performa nce characteristics determined by [facility] in a manner co nsistent with CLIA requirements. This test has not bee n cleared or approved by the U.S. Food and Drug Admin istration. Glucose 4 0 - 15 mg/dL 09/03/2018 4:32 PM [facility] Protein, U 227 (H) <26 mg/dL 09/03/2018 4:59 PM [facility] Comment: ----ADDITIONAL INFORMATION---- On 02/13/2017 the total protein assay me thod changed resulting in approximately a 15% increase in prote in values. Protein/Osmolality 5.82 (H) <0.42 Ratio 09/03/2018 4:59 PM [facility] Comment: ----ADDITIONAL INFORMATION---- On 02/13/2017 the total protein assay me thod changed resulting in approximately a 15% increase in prote in values. Predicted 24 Hr 3311 mg/24 h 09/03/2018 4:59 PM [facility] Protein [facility] S Predicted Range [id number] mg/24 h 09/03/2018 4:59 PM [facility] Hemoglobin, QL Large (A) Negative 09/03/2018 4:14 PM [place] Fracisco ELIZABETH [facility] Specimen Anatomical Collection Method Collection Time Receive d Time (Source) Location / / Volume Laterality Urine (Urine, 09/03/2018 2:43 PM 09/03/19 19 2:43 Voided) VARNISHER PM VARNISHER Paz Diehl P.A.-C. LAB URINE ORDERABLES Performing Organization Address City/State/ZIP Code Phon e Number [facility] - [address] [place] [id number] 05 [facility] documented in this encounter Visit Diagnoses Diagnosis Obstruction Ureteropelvic - Primary documented in this encounter Additional Health Concerns Assessment Noted Time PHQ-9 Depression Total Score: 3 09/13/2017 7:47 AM VARNISHER documented as of this encounter
--- OUTSIDE RECORDS SUMMARY | 2022-05-25 13:29 | XMS_ITS | Encounter Summary ---
:1960 Author Organization [facility] Address [address] [place] [address] Care Team Providers Name Role Phone Unavailable Primary Care Provider Unavailable Encounter Details Date Type Department Care Team Description 07/09/2018 Orders Only Charity Desai Renal ([facility]) (Primary Dx); Center for A, R.N., High Risk Medic ation; Transplantation and C.C.T.C. Immunosuppressed State; Clinical Regeneration in [address] [place] [address] Complication Kidney Transplant (HCC) [place], [place] [address] [place] [address] [place] [address] [phone] Social History Tobacco Use Types Packs/Day Years [...] How often do you attend latter-day or rastafari 1 to 4 times per [...] An Nicholas APRN C.N.P., D.N.P., M.S.N. [address] [place] [address] [phone] (Nicolas wen) 07/31/2022 Lab Laboratory Medicine Tony Rubalcava M. B., ChDaviBDavi, MDaviD. [address] [place] [address] 55 [phone] (Nicolas wen) 07/31/2022 Lab Laboratory Medicine Tony Rubalcava M. B., Ch.BDavi, M.D. [address] [place] [address] 55 [phone] (Nicolas wen) 07/31/2022 Office Visit Transplant Tony Rubalcava M.B., Ch.BDavi, MDaviD. [address] [place] [address] 55 [phone] (Nicolas wen) 07/31/2022 Appointment Radiology Tony Rubalcava M.B., Ch.B., M.D. [address] [place] [address] 55 [phone] (Nicolas wen) 08/01/2022 Office Visit Transplant Tony Rubalcava M.B., Mukund [place] [address] [place], [place] 55 [phone] (Wo behzad) 08/01/2022 Clinical Support Transplant Tony Rubalcava M.B., Mukund [place] [address] [place], [place] 55 [phone] (Nicolas wen) documented as of this encounter Visit Diagnoses Diagnosis Transplant Renal (HCC) - Primary High Risk Medication Immunosuppressed State Complication Kidney Transplant (HCC) documented in this encounter Additional Health Concerns Assessment Noted Time PHQ-9 Depression Total Score: 3 09/13/2017 7:47 AM 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
--- OUTSIDE RECORDS SUMMARY | 2022-05-25 13:29 | XMS_ITS | Encounter Summary ---
:1960 Author Organization [facility] Address [address] [place] [address] Care Team Providers Name Role Phone Unavailable Primary Care Provider Unavailable Encounter Details Date Type Department Care Team Description 05/27/2018 Orders Only Division of Nephrology and Neymar Martínez Hypertension in [place], ., D.O. [place] [address] [facility] [address] [place] [phone] (Wo rk) Social History Tobacco Use Types [...] How often do you attend pentecostalism or hoahaoism 1 to 4 times per [...] Nicholas APRN C.N.P., D.N.P., M.S.N. [address] [place] [address] 55 [phone] (Wo rk) 07/31/2022 Lab Laboratory Medicine [place] Rubalcava M. B., Sydnie, MDebra [address] [place] [address] [phone] (Wo rk) 07/31/2022 Lab Laboratory Medicine [place] Rubalcava M. B., Sydnie, MDebra [address] [place] [address] [phone] (Wo rk) 07/31/2022 Office Visit Transplant [place] Rubalcava M.B., ChBurke, MDebra [address] [place] [address] [phone] (Wo rk) 07/31/2022 Appointment Radiology [place] Rubalcava M.B., Sydnie, MDebra [address] [place] [address] 55 [phone] (Wo rk) 08/01/2022 Office Visit Transplant [place] Rubalcava M.B., Sydnie, MDebra [address] [place] [address] [phone] (Wo rk) 08/01/2022 Clinical Support Transplant [place] Rubalcava M.B., Sydnie, Shashi. [address] [place], [place] [phone] (Wo rk) documented as of this encounter Visit Diagnoses Not on filedocumented in this encounter Additional Health Concerns Assessment Noted Time PHQ-9 Depression Total Score: 3 09/13/2017 7:47 AM MULTIPLEX 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
--- OUTSIDE RECORDS SUMMARY | 2022-05-25 13:29 | XMS_ITS | Encounter Summary ---
:1960 Author Organization [facility] Address [address] [place] [address] Care Team Providers Name Role Phone Unavailable Primary Care Provider Unavailable Encounter Details Date Type Department Care Team Description 06/26/2018 Documentation Division of Nephrology and Josr Martínez Hypertension in [place], ., D.O. [place] [address] [facility] 200 [place] [phone] (Wo rk) Social History Tobacco Use Types [...] How often do you attend jewish or moravian 1 to 4 times per [...] Progress Notes Steve Martínez Jr., D.O. - 06/26/2018 10:17 AM CST Please see care everywhere note from [facility] dialysis note from today as well. She is experiencing L arm pain. There has been high venous pressures and a new whistle over her AVF (L). I will arrange a fistulogram. MINER BLASTING documented in this encounter Plan of Treatment Upcoming Encounters Date Type Specialty Care Team Description 06/01/2022 Telemedicine Pharmacy An Nicholas APRN, C.N.P., D.N.P., M.S.N. [address] [place] [address] 55 [phone] (Wo rk) 07/31/2022 Lab Laboratory Medicine [place] Rubalcava M. B., ChBurke, MElvia. [address] [place] [address] 55 [phone] (Wo rk) 07/31/2022 Lab Laboratory Medicine [place] Rubalcava M. B., ChBurke, MDebra [address] [place] [address] 55 [phone] (Wo rk) 07/31/2022 Office Visit Transplant [place] Rubalcava M.B., Sydnie, MDebra [address] [place] [address] 55 [phone] (Wo rk) 07/31/2022 Appointment Radiology [place] Rubalcava M.B., Mukund [place] [address] [place] [address] 55 [phone] (Wo rk) 08/01/2022 Office Visit Transplant [place] Rubalcava M.B., Sydnie, Mukund [address] [place] [address] 55 [phone] (Wo rk) 08/01/2022 Clinical Support Transplant [place] Rubalcava M.B., Sydnie, Mukund [address] [place] [address] 55 [phone] (Wo rk) documented as of this encounter Visit Diagnoses Not on filedocumented in this encounter Additional Health Concerns Assessment Noted Time PHQ-9 Depression Total Score: 3 09/13/2017 7:47 AM GOLD MINER BLASTING documented as of this encounter
--- OUTSIDE RECORDS SUMMARY | 2022-05-25 13:29 | XMS_ITS | Encounter Summary ---
:1960 Author Organization [facility] Address [address] [place] [address] Care Team Providers Name Role Phone Unavailable Primary Care Provider Unavailable Encounter Details Date Type Department Care Team Description 08/01/2018 Hospital Encounter Department of Riana Nunez Renal Laboratory Medicine Alvaro Bhatia ([facility]) and Pathology, [address] [place] [address] in [place], [place] [address] [place] [address] [place], [place] (Work) [phone] Social History Tobacco Use Types Packs/Day Years [...] How often do you attend sabianism or jain 1 to 4 times per [...] (CELLCEPT) 250 mg MOUTH TWICE DAILY capsule predniSONE (DELTASONE) Take 1 tablet (5 mg 90 tablet 3 03/201807/10/2019 5 mg tablet total) by mouth daily. tacrolimus (PROGRAF) 1 Take 2 capsules (2 360 capsule 3 03/201812/08/2019 mg capsule mg total) by mouth 2 (two) times a day. B complex Take 1 tablet by 0 06/13/2017 05/31/20 19 06-pvzfl-B-biot-zinc mouth daily. (DIALYVITE) 3-182-196-50 wf-wx-jfb-mg tablet ciprofloxacin (CIPRO) Take 1 tablet by 6 tablet 0 05/10/20 18 09/03/2018 250 mg tablet mouth evening prior to stent exchange, 1 tablet evening of, then twice a day until gone. lidocaine-prilocaine Apply 1 application 30 g 11 201709/15/2019 (EMLA) 2.5-2.5 % cream topically as directed. mupirocin (BACTROBAN) 2 Apply 1 application 22 g 1 11/201704/25/2019 % ointmentIndications: topically 3 (three) Paronychia Finger Left times a day. For 14 days nebivolol (BYSTOLIC) 10 Take 1 tablet by 0 201608/26/2018 mg tablet mouth daily. rosuvastatin Take 1 tablet by 0 09/14/20172018 [...] An Nicholas APRN C.NDaviP., D.N.P., M.S.N. [address] [place] [address] 55 [phone] (Nicolas wen) 07/31/2022 Lab Laboratory Medicine [place] Rubalcava M. B., Ch.B., M.D. [address] [place] [address] [phone] ( behzad) 07/31/2022 Lab Laboratory Medicine [place] Rubalcava M. B., Ch.B., M.D. [address] [place] [address] 55 [phone] ( behzad) 07/31/2022 Office Visit Transplant [place] Rubalcava M.B., ChDaviB., MDaviD. [address] [place] [address] [phone] ( behzad) 07/31/2022 Appointment Radiology [place] Rubalcava M.B., Ch.B., M.D. [address] [place] [address] 55 [phone] ( behzad) 08/01/2022 Office Visit Transplant [place] Rubalcava M.B., Mukund [place] [address] [place], [place] 55 [phone] (Nicolas wen) 08/01/2022 Clinical Support Transplant [place] Rubalcava M.B., Mukund [place] [address] [place], [place] 55 [phone] (Nicolas wen) documented as of this encounter Procedures Procedure Name Priority Date/Time Associated Comments Diagnosis TACROLIMUS LEVEL, B Routine 08/14/2018 5:45 AM Transplant Jessica l Results for this THREAD WEAVER (HCC) procedure are i n the results section. documented in this encounter Results Tacrolimus, B (08/14/2018 5:45 AM THREAD WEAVER) athologist Signature Tacrolimus, B 7.8 5.0-15.0 08/19/2018 [facility] (Trough) 1:01 PM THREAD WEAVER [address] ng/mL [facility] Comment: ----ADDITIONAL INFORMATION---- Target steady-state trough concentration s vary depending on the type of transplant, concomitant immunosuppressio n, clinical/institutional protocols, and time post-transplant. Results should be interpreted in conjunction with this clinical information and any physic al signs/symptoms of rejection/toxicity. Testing performed by Liquid Chromatograp hy-Tandem Mass Spectrometry (LC-MS/MS). This test was developed and its performa nce characteristics determined by [facility] in a manner consistent with CLIA requirements. This test has not been cleared or approved by the [place] d and Drug Administration. Specimen Anatomical Collection Method Collection Time Receive d Time (Source) Location / / Volume Laterality Blood (Blood, 08/14/2018 5:45 AM 08/19/20 18 Venous) THREAD WEAVER 10:19 AM THREAD WEAVER Resulting Agency Comment Mailed In Specimen Jannette Carolina M.D. LAB BLOOD NON ADD-ON Performing Organization Address City/State/ZIP Code Phon e Number [facility] [address] [place], [place] [address] [facility] documented in this encounter Visit Diagnoses Diagnosis Transplant Renal (HCC) documented in this encounter Additional Health Concerns Assessment Noted Time PHQ-9 Depression Total Score: 3 09/13/2017 7:47 AM THREAD WEAVER documented as of this encounter
--- OUTSIDE RECORDS SUMMARY | 2022-05-25 13:29 | XMS_ITS | Encounter Summary ---
:1960 Author Organization [facility] Address [address] [place] [address] Care Team Providers Name Role Phone Unavailable Primary Care Provider Unavailable Encounter Details Date Type Department Care Team Description 07/18/2018 Hospital Department of Tabitha [facility] State Encounter Laboratory Soraya Mascorro Medicine and P.A.-Milli, M.S. Pathology, [place] [address] [place] [address], in [facility] [phone] [place] [phone] [place] [address] (Work) [place], [place] [phone] (Fax) [phone] Social History Tobacco Use Types Packs/Day Years [...] How often do you attend jew or presybeterian 1 to 4 times per [...] 1 tablet by 0 06/13/2017 05/31/20 19 09-bxeyk-A-biot-zinc mouth daily. (DIALYVITE) [id number] si-lp-qkz-mg tablet ciprofloxacin (CIPRO) Take 1 tablet by [...] An Nicholas APRN C.N.P., D.N.P., M.S.N. [address] [place] [address] 55 [phone] ( rk) 07/31/2022 Lab Laboratory Medicine [place] Rubalcava M. B., Ch.B., M.D. [address] [place] [address] 55 [phone] ( rk) 07/31/2022 Lab Laboratory Medicine [place] Rubalcava M. B., ChDaviBDavi, MDebra [address] [place] [address] 55 [phone] ( rk) 07/31/2022 Office Visit Transplant [place] Rubalcava M.B., ChDaviB., MDebra [address] [place] [address] 55 [phone] ( rk) 07/31/2022 Appointment Radiology [place] Rubalcava M.B., ChDaviBDavi, MElvia. [address] [place] [address] 55 [phone] (Nicolas wen) 08/01/2022 Office Visit Transplant [place] Rubalcava M.B., Mukund Otoole [address] [place], [place] 55 [phone] (Nicolas rk) 08/01/2022 Clinical Support Transplant [place] Rubalcava M.B., Mukund [place] [address] [place], [place] [phone] (Nicolas rk) documented as of this encounter Procedures Procedure Name Priority Date/Time Associated Diagnosis Comme nts TACROLIMUS LEVEL, B Routine 07/22/2018 5:45 Immunosuppressed S monzon Results for this AM ORTHOPEDIC DENTIST procedure are i n the results section. documented in this encounter Results (ABNORMAL) Tacrolimus, B (07/22/2018 5:45 AM ORTHOPEDIC DENTIST) P athologist Signature Tacrolimus, B 1.9 (L) 5.0-15.0 07/25/2018 [facility] (Trough) 4:46 PM ORTHOPEDIC DENTIST [address] ng/mL [facility] Comment: ----ADDITIONAL [...] its performa nce characteristics determined by [facility] in a manner consistent with CLIA requirements. This test has not been cleared or approved by the U.[place]. J[place] d and Drug Administration. Specimen Anatomical Collection Method Collection Time Receive d Time (Source) Location / / Volume Laterality Blood (Blood, 07/22/2018 5:45 AM 07/25/20 18 Venous) ORTHOPEDIC DENTIST 12:44 PM ORTHOPEDIC DENTIST Resulting Agency Comment Mailed In Specimen Soraya Lu P.A.-C., M.S. LAB BLOOD NON ADD-ON Performing Organization Address City/State/ZIP Code Phon e Number [facility] [address] [place], [place] [address] [facility] documented in this encounter Visit Diagnoses Diagnosis Immunosuppressed State documented in this encounter Additional Health Concerns Assessment Noted Time PHQ-9 Depression Total Score: 3 09/13/2017 7:47 AM ORTHOPEDIC DENTIST documented as of this encounter
--- OUTSIDE RECORDS SUMMARY | 2022-05-25 13:29 | XMS_ITS | Encounter Summary ---
:1960 Author Organization [facility] Address [address] [place] [address] Care Team Providers Name Role Phone Unavailable Primary Care Provider Unavailable Encounter Details Date Type Department Care Team Description 07/02/2018 Hospital Encounter Department of Josr Martínez Jr., D.ODavi 200 [place] [phone] Chronic Kidney Disease Stage 5 Glomerula r Filtration Rate Less Than 15 (HCC); Radiology in Jamin Christianson M.D. 200 [place] [phone] Complication Dialysis Fistula Subsequent Yoli Hernandez Edwin A, M.D. [address] [place] [phone] [place] [address] [address] [place] [address] Social History Tobacco Use Types [...] How often do you attend anglican or sikh 1 to 4 times per [...] Sign Reading Time Taken Comments Blood Pressure 112/88 07/02/2018 11:35 AM VENEER GRADER Pulse 59 07/02/2018 11:35 AM VENEER GRADER Temperature - - Respiratory Rate 13 07/02/2018 11:14 AM VENEER GRADER Oxygen Saturation 96% 07/02/2018 11:35 AM VENEER GRADER Inhaled Oxygen Concentration - - Weight - [...] 1 tablet by 0 06/13/2017 05/31/20 19 49-uyfml-V-biot-zinc mouth daily. (DIALYVITE) [id number] he-by-uuy-mg tablet ciprofloxacin (CIPRO) Take 1 tablet by 6 tablet 0 05/10/20 18 09/03/2018 250 mg tablet mouth evening prior to stent exchange, 1 tablet evening of, then twice a day until gone. lidocaine-prilocaine Apply 1 application 0 201607/08/2018 (for_EMLA) 2.5-2.5 % topically as cream directed. mupirocin (BACTROBAN) 2 Apply 1 application 22 g 1 11/201704/25/2019 % ointmentIndications: topically 3 (three) Paronychia Finger Left times a day. For 14 days nebivolol (BYSTOLIC) 10 Take 1 tablet by 0 201608/26/2018 mg tablet mouth daily. rosuvastatin Take 1 tablet by 0 09/14/20172018 (for_CRESTOR) 5 mg mouth daily. tablet tamsulosin (FLOMAX) 0.4 Take 1 capsule (0.4 30 capsule 2 04/25/2019 mg 24 hr capsule mg total) by mouth daily as needed (spasm pain assoc with stent). documented as of this encounter Procedure Notes Julius Kent M.D. - 07/02/2018 11:39 AM CST PATIENT DISPOSITION Return to Outpatient Unit for recovery. Discharge patient when discharge criteria met. POST-PROCEDURE DIAGNOSIS ESRD. PROCEDURE PERFORMED AND DESCRIPTION Fistulogram without intervention. PROCEDURE DETAILS See Radiology Report SPECIMENS REMOVED None FINDINGS Patent LUE brachiobasilic fistula. PRIMARY PROCEDURALIST Ritu Christianson MD ASSISTANTS Fiona Kent MD COMPLICATIONS None. DRAINS None. IMPLANTS None. ANESTHESIA Moderate Sedation. FLUIDS 0 ESTIMATED BLOOD LOSS <5ml CURRENT MEDICATIONS No Medication Changes FOLLOW-UP LETTER None. MAY RETURN TO WORK Not applicable PATIENT INSTRUCTIONS No return appointment ER GRADER documented in this encounter Plan of Treatment Upcoming Encounters Date Type Specialty Care Team Description 06/01/2022 Telemedicine Pharmacy Cristopher Ansarah Yap APRN, C.N.P., WhitneyNDaviP., M.S.N. [address] [place] [address] [phone] (Wo rk) 07/31/2022 Lab Laboratory Medicine [place] Rubalcava M. B., Sydnie, Mukund [address] [place] [address] [phone] (Wo rk) 07/31/2022 Lab Laboratory Medicine [place] Rubalcava M. B., Sydnie, Mukund [address] [place] [address] [phone] (Wo rk) 07/31/2022 Office Visit Transplant [place] Rubalcava M.B., Sydnie, Mukund [address] [place] [address] [phone] (Wo rk) 07/31/2022 Appointment Radiology [place] Rubalcava M.B., Sydnie, Mukund [address] [place] [address] [phone] (Wo rk) 08/01/2022 Office Visit Transplant [place] Rubalcava M.B., Sydnie, Mukund [address] [place] [address] [phone] (Wo rk) 08/01/2022 Clinical Support Transplant [place] Rubalcava M.B., Sydnie, Mukund [address] [place] [address] [phone] (Wo rk) documented as of this encounter Procedures Procedure Name Priority Date/Time Associated Comments Diagnosis IR DIALYSIS RAD - Routine 07/02/2018 11:24 Chronic Kidney Results for this FISTULAGRAM LEFT (most inpatients AM VENEER GRADER Disease Stage 5 proc edure are in and all Glomerular the results outpatients) Filtration Rate section. Less Than 15 (HCC) Complication Dialysis Fistula Subsequent documented in this encounter Results IR Dialysis Fistulagram Left (07/02/2018 11:24 AM VENEER GRADER) Anatomical Region Laterality Modality Body, Vascular Interventional RST LOS, Vascular Left X-Ray Angiography Interventional ARZ LOS, Vascular Interventional FLA LOS Specimen (Source) Anatomical Collection Method Collection Time Re ceived Time Location / / Volume Laterality 07/02/2018 11:40 AM VENEER GRADER Impressions 07/02/2018 12:56 PM VENEER GRADER IMPRESSION: ??Widely patent left brachiobasilic dialysis fistula. No intervention performed. EP Narrative 07/02/2018 12:56 PM VENEER GRADER EXAM: IR DIALYSIS FISTULAGRAM LEFT CLINICAL HISTORY: [...] silic dialysis fistula. No intervention performed. EP Brody Rasheed Jr. IR PROCEDURES documented in this encounter Visit Diagnoses Diagnosis Chronic Kidney Disease Stage 5 Glomerula r Filtration Rate Less Than 15 (HCC) Complication Dialysis Fistula Subsequent documented in this encounter Administered Medications Inactive Administered Medications - up to 3 most recent administrations Medication Order MAR Action Action Date Dose Rate Site fentaNYL injection 25 mcg Given 07/02/2018 10:53 AM VENEER GRADER 25 mcg (SUBLIMAZE) 25 mcg, intravenous, Every 2 min PRN, sedation, or pain before and during sedation procedure, Starting on Sun07/02/18 at 0953, Intraprocedure (RAD), Administer over 1 minute immediately prior to the procedure. May repeat every 2 minutes to a maximum of 200 mcg, until pain score of 3 or less, or until the patient meets the pain comfort goal. Do not give if respiratory rate is less than 8 breaths/minute Given 07/02/2018 10:50 AM VENEER GRADER 25 mcg Given 07/02/2018 10:48 AM VENEER GRADER 25 mcg flumazenil injection 0.2 mg (ROMAZICON) 0.2 mg, intravenous, Once as needed, rev ersal, Starting on Sun07/02/18 at 0953, For 1 dose, Intraprocedure (RAD), Admini ster once if patient has a RASS score of -4, -5 and has a respiratory rate less than 8 breaths/ minute. iodixanol 320 mg iodine/mL injection Given 07/02/2018 11:[address] 40 mL (VISIPAQUE) Code/trauma/sedation medication, Starting on Sun07/02/18 at 1121 lidocaine (PF) 10 mg/mL (1 %) injection Given 07/02/2018 10:59 A M 3 mL Left Arm (XYLOCAINE) VENEER GRADER Code/trauma/sedation medication, Starting on Sun07/02/18 at 1059 midazolam (PF) injection 0.5 mg (VERSED) Given 07/02/2018 10:53 AM VENEER GRADER 0.5 mg 0.5 mg, intravenous, Every 2 min PRN, sedation, Starting on Sun07/02/18 at 0953, Intraprocedure (RAD), If RASS greater than -3, give additional dose(s) of 0.5 mg IV every 2 minute for a maximum of 5 mg. Do not give if respiratory rate is less than 8 breaths/minute Given 07/02/2018 10:50 AM VENEER GRADER 0.5 mg Given 07/02/2018 10:48 AM VENEER GRADER 0.5 mg NaCl 0.9% infusion 20 mL/hr, intravenous, Once as needed, t o keep vein open, Starting on Sun07/02/18 at 0953, For 1 dose, Intraprocedure (RAD) naloxone injection 0.2 mg (NARCAN) 0.2 mg, intravenous, Once as needed, respiratory depre ssion, Starting on Sun07/02/18 at 0953, For 1 dose, Intraproce dure (RAD), Administer once if patient has a RASS score of -4, -5 and has a respiratory rate less than 8 breaths/minute. sodium chloride injection 10 mL 10 mL, intravenous, As needed, line care, Starting on Sun07/02/18 at 0953, Intraprocedure (RAD), Peripheral Intrave nous Catheter and Rapid Infusion Catheter, prior to blood sampling, post blood transfusion or pos t blood sampling sodium chloride injection 3 mL 3 mL, intravenous, As needed, line care, Starting on T 07/02/18 at 0953, Intraprocedure (RAD), Prior to and following infusion and between multiple consecutive infusions: sodium chloride 0.9 % injection sodium chloride injection 3 mL 3 mL, intravenous, Every 12 hours schedu led, First dose on Sun07/02/18 at 2100, Intraprocedure (RAD), Peripheral Intrave nous Catheter and Rapid Infusion Catheter, when no infusion to maintain patency documented in this encounter Active and Recently Administered Medications Times are shown in VENEER GRADER. Scheduled Medication Order 06/30/2018 07/01/2018 07/02/2018 sodium chloride injection 3 mL 3 mL, intravenous, Every 12 hours schedu led, First dose on Sun07/02/18 at 2100, Intraprocedure (RAD), Peripheral Intravenous Catheter and Rapid Infusion Catheter, when no infusion to maintain patency PRN Medication Order 06/30/2018 07/01/2018 07/02/2018 fentaNYL injection 25 mcg (SUBLIMAZE) 1048 (Given - Provider: Elvia Collins R.N.)1050 (Given - Provider: Elvia Collins R.N.)1053 (Given - Provider: Elvia Collins R.N.) 25 mcg, intravenous, Every 2 min PRN, se dation, or pain before and during sedation procedure, Starting Sun07/02/18 at 0953, Intraprocedure (RAD), Administer over 1 minute immediately prior to the proce dure. May repeat every 2 minutes to a ma ximum of 200 mcg, until pain score of 3 or less, or until the patient meets the pain comfort goal. Do not give if respiratory rate is less than 8 breaths/minute flumazenil injection 0.2 mg (ROMAZICON) 0.2 mg, intravenous, Once as needed, rev ersal, Starting Sun07/02/18 at 0953, For 1 dose, Intraprocedure (RAD), Administer once if patient has a RASS score of -4, -5 and has a respiratory rate less than 8 breaths/minute. iodixanol 320 mg iodine/mL injection (VISIPAQUE) (COMPLETED) 1121 (Given - Provider: Jamin Christianson M.D.) Code/trauma/sedation medication, Starting on Sun07/02/18 at 112 1 lidocaine (PF) 10 mg/mL (1 %) injection (XYLOCAINE) (COMPLETED) 1059 (Given - Provider: Julius Kent M.D.) Code/trauma/sedation medication, Starting Sun07/02/18 at 1059 midazolam (PF) injection 0.5 mg (VERSED) 1048 (Given - Provider: Elvia Collins R.N.)1050 (Given - Provider: Elvia Collins R.N.)1053 (Given - Provider: Elvia Collins R.N.) 0.5 mg, intravenous, Every 2 min PRN, se dation, Starting Sun07/02/18 at 0953, Intraprocedure (RAD), If RASS greater than -3, give additional dose(s) of 0.5 mg IV every 2 minute for a maximum of 5 mg. D o not give if respiratory rate is less than 8 breaths/minute NaCl 0.9% infusion 20 mL/hr, intravenous, at 20 mL/hr, Once as needed, to keep vein open, Starting e 07/02/18 at 0953, For 1 dose, Intraprocedure (RAD) naloxone injection 0.2 mg (NARCAN) 0.2 mg, intravenous, Once as needed, res piratory depression, Starting Sun07/02/18 at 0953, For 1 dose, Intraprocedure (RAD), Administer once if patient has a RASS score of -4, -5 and has a respiratory rate less than 8 breaths/minute. sodium chloride injection 10 mL 10 mL, intravenous, As needed, line care , Starting e 07/02/18 at 0953, Intraprocedure (RAD), Peripheral Intravenous Catheter and Rapid Infusion Catheter, prior to blood sampling, post blood transfusion or post blood sampling sodium chloride injection 3 mL 3 mL, intravenous, As needed, line care, Starting 07/02/18 at 0953, Intraprocedure (RAD), Prior to and following infusion and between multiple consecutive infusions: sodium chloride 0.9 % injection documented in this encounter Additional Health Concerns Assessment Noted Time PHQ-9 Depression Total Score: 3 09/13/2017 7:47 AM VENEER GRADER documented as of this encounter
--- OUTSIDE RECORDS SUMMARY | 2022-05-25 13:29 | XMS_ITS | Encounter Summary ---
:1960 Author Organization [facility] Address [address] [place] [address] Care Team Providers Name Role Phone Unavailable Primary Care Provider Unavailable Reason for Visit Reason Comments Med Refill Encounter Details Date Type Department Care Team Description 07/08/2018 Refill Division of Nephrology and Phillip, Joel Bruno APRN, Med Refill Hypertension in [place], C.N.P ., M.S.N. [place] [address] [facility] [address] [place] [address] [place] [address] [phone] Social History Tobacco Use Types Packs/Day Years [...] How often do you attend confucianist or christianity 1 to 4 times per [...] Nicholas APRN C.N.P., D.N.P., M.S.N. [address] [place] [address] 55 [phone] (Nicolas wen) 07/31/2022 Lab Laboratory Medicine Tony Rubalcava M. B., ChBurke, M.D. [address] [place] [address] 55 [phone] (Nicolas wen) 07/31/2022 Lab Laboratory Medicine Tony Rubalcava M. B., ChDaviBDavi, MDaviD. [address] [place] [address] 55 [phone] (Nicolas wen) 07/31/2022 Office Visit Transplant Tony Rubalcava M.B., ChDaviBDavi, MDaviD. [address] [place] [address] 55 [phone] (Nicolas wen) 07/31/2022 Appointment Radiology Tony Rubalcava M.B., ChDaviBDavi, MDaviD. [address] [place] [address] 55 [phone] (Nicolas wen) 08/01/2022 Office Visit Transplant Tony Rubalcava M.B., Mukund Otoole [address] [place] [address] [phone] (Nicolas wen) 08/01/2022 Clinical Support Transplant Tony Rubalcava M.B., Mukund Otoole [address] [place], [place] 55 [phone] (Nicolas wen) documented as of this encounter Visit Diagnoses Not on filedocumented in this encounter Additional Health Concerns Assessment Noted Time PHQ-9 Depression Total Score: 3 09/13/2017 7:47 AM GUIDE CRUISE documented as of this encounter
--- OUTSIDE RECORDS SUMMARY | 2022-05-25 13:29 | XMS_ITS | Encounter Summary ---
:1960 Author Organization [facility] Address [address] [place] [address] Care Team Providers Name Role Phone Unavailable Primary Care Provider Unavailable Encounter Details Date Type Department Care Team Description 07/18/2018 Orders Only [place] [facility] for L, R.N. (Primary Dx) Transplantation and Clinical Regeneration in [place], [place] [address] [place] [address] Social History Tobacco Use Types Packs/Day [...] How often do you attend yazidi or worship 1 to 4 times per [...] Nicholas APRN C.N.P., D.N.P., M.S.N. [address] [place] [address] 55 [phone] (Nicolas wen) 07/31/2022 Lab Laboratory Medicine Tony Rubalcava M. B., ChBurke, MElvia. [address] [place] [address] 55 [phone] (Nicolas wen) 07/31/2022 Lab Laboratory Medicine Tony Rubalcava M. B., ChBurke, MDebra [address] [place] [address] 55 [phone] (Nicolas wen) 07/31/2022 Office Visit Transplant Tony Rubalcava M.B., ChBurke, MDebra [address] [place] [address] 55 [phone] (Nicolas rk) 07/31/2022 Appointment Radiology Tony Rubalcava M.B., ChBurke, MDebra [address] [place] [address] 55 [phone] (Nicolas wen) 08/01/2022 Office Visit Transplant Tony Rubalcava M.B., ChBurke, MDebra [address] [place] [address] 55 [phone] (Nicolas wen) 08/01/2022 Clinical Support Transplant Tony Rubalcava M.B., Mukund Otoole [address] [place], [place] 55 [phone] (Wo rk) documented as of this encounter Results (ABNORMAL) Tacrolimus, B (07/22/2018 5:45 AM [facility]) P athologist Signature Tacrolimus, B 1.9 (L) 5.0-15.0 07/25/2018 [facility] (Trough) 4:46 PM [facility] [address] ng/mL [facility] Comment: ----ADDITIONAL [...] (Blood, 07/22/2018 5:45 AM 07/25/20 18 Venous) [facility] 12:44 PM [facility] Resulting Agency Comment Mailed In Specimen Soraya Lu P.A.-C., M.S. LAB BLOOD NON ADD-ON Performing Organization Address City/State/ZIP Code Phon e Number [facility] [address] [place], [place] [address] [facility] documented in this encounter Visit Diagnoses Diagnosis Immunosuppressed State - Primary documented in this encounter Additional Health Concerns Assessment Noted Time PHQ-9 Depression Total Score: 3 09/13/2017 7:47 AM [facility] documented as of this encounter
--- OUTSIDE RECORDS SUMMARY | 2022-05-25 13:29 | XMS_ITS | Encounter Summary ---
:1960 Author Organization [facility] Address [address] [place] [address] Care Team Providers Name Role Phone Unavailable Primary Care Provider Unavailable Reason for Visit Reason Onset Date Comments Tacrolimus Adjustment Protocol 08/01/2018 Encounter Details Date Type Department Care Team Description 08/01/2018 Clinical Charity Desai [facility] for A, R.N., Adjustment Transplantation and C.C.T.C. Protocol Clinical Regeneration [address] [facility] in [facility] [phone] [place] [address] [place], [place] (Work) [phone] Social History Tobacco Use Types Packs/Day Years [...] often do you attend latter day or jewish 1 to 4 times per [...] Telephone Encounter - Charity Ponce R.N. - 08/01/2018 10:34 AM [employer] SUPPORT MANAGER Tacrolimus level is low at 1.9. Patient is unsure if this was a 12 hour trough and she thinks she may have missed a dose. Patient instructed via phone to recheck the level. A kit has been requested to be sent out to her. GRATED LOGISTICS SUPPORT MANAGER documented in this encounter Plan of Treatment Upcoming Encounters Date Type Specialty Care Team Description 06/01/2022 Telemedicine Pharmacy An Nicholas APRN, C.N.P., D.N.P., M.S.N. [address] [place] [address] [phone] (Nicolas wen) 07/31/2022 Lab Laboratory Medicine Tony Rubalcava M. B., Ch.B., M.D. [address] [place] [address] 55 [phone] (Nicolas wen) 07/31/2022 Lab Laboratory Medicine Tony Rubalcava M. B., Ch.B., M.D. [address] [place] [address] 55 [phone] (Nicolas wen) 07/31/2022 Office Visit Transplant Tony Rubalcava M.B., Mukund Otoole [address] [place] [address] [phone] (Wo rk) 07/31/2022 Appointment Radiology Tony Rubalcava M.B., Mukund Otoole [address] [place] [address] [phone] (Nicolas wen) 08/01/2022 Office Visit Transplant Tony Rubalcava M.B., Mukund Otooel [address] [place] [address] 55 [phone] (Nicolas wen) 08/01/2022 Clinical Support Transplant Tony Rubalcava M.B., Mukund Otoole [address] [place] [address] [phone] (Nicolas wen) documented as of this encounter Results Tacrolimus, B (08/14/2018 5:45 AM [employer]TE[employer]IST[employer] SUPPORT MANAGER) P athologist Signature Tacrolimus, B 7.8 5.0-15.0 08/19/2018 [facility] (Trough) 1:01 PM INTEGRATED LOGISTICS SUPPORT MANAGER [address] ng/mL [facility] Comment: ----ADDITIONAL [...] and its performa nce characteristics determined by [facility] in a manner consistent with CLIA requirements. This test has not been cleared or approved by the [place] d and Drug Administration. Specimen Anatomical Collection Method Collection Time Receive d Time (Source) Location / / Volume Laterality Blood (Blood, 08/14/2018 5:45 AM 08/19/20 18 Venous) [employer] SUPPORT MANAGER 10:19 AM INTEGR[employer] LOGIST[employer] SUPPORT MANAGER Resulting Agency Comment Mailed In Specimen Jannette El Ters M.D. LAB BLOOD NON ADD-ON Performing Organization Address City/State/ZIP Code Phon e Number [facility] [address] [place], [place] [address] [facility] documented in this encounter Visit Diagnoses Diagnosis Transplant Renal (HCC) - Primary documented in this encounter Additional Health Concerns Assessment Noted Time PHQ-9 Depression Total Score: 3 09/13/2017 7:47 AM INTEGRATED LOGISTICS SUPPORT MANAGER documented as of this encounter
--- OUTSIDE RECORDS SUMMARY | 2022-05-25 13:29 | XMS_ITS | Encounter Summary ---
:1960 Author Organization [facility] Address [address] [place] [address] Care Team Providers Name Role Phone Unavailable Primary Care Provider Unavailable Encounter Details Date Type Department Care Team Description 06/12/2018 Hospital Encounter Department of Alexa Adan nspjovi Recipient Evaluation Exam; Laboratory Medicine M, TRANSCRIPTION COORDINATOR, C.N.P., Counter Weigher taran Kidney Disease and Pathology, D.N.P. [place], in [address] [place] [phone] [place] [address] [place], [place] (Work) [phone] Social History Tobacco Use Types Packs/Day Years [...] How often do you attend yazdanism or taoist 1 to 4 times per [...] by mouth 2 (two) times a day. amLODIPine Take 1 tablet by 0 07/10/2017 07/01/20 18 (for_NORVASC) 10 mg mouth daily. tablet B complex Take 1 tablet by 0 06/13/2017 05/31/20 19 76-aaltu-U-biot-zinc mouth daily. (DIALYVITE) [phone] kw-co-jfk-mg tablet ciprofloxacin (CIPRO) Take 1 tablet by 6 tablet 0 05/10/20 18 09/03/2018 250 mg tablet mouth evening prior to stent exchange, 1 tablet evening of, then twice a day until gone. lidocaine-prilocaine Apply 1 application 0 201607/08/2018 (for_EMLA) 2.5-2.5 % topically as cream directed. losartan (for_COZAAR) Take 1 tablet by 0 07/10/20 17 07/01/2018 50 mg tablet mouth daily. mupirocin (BACTROBAN) 2 Apply 1 application 22 [...] An Nicholas APRN C.N.P., D.N.P., M.S.N. [address] [place] [address] 55 [phone] (Nicolas rk) 07/31/2022 Lab Laboratory Medicine Tony Rubalcava M. B., Ch.B., M.D. [address] [place] [address] 55 [phone] (Wo rk) 07/31/2022 Lab Laboratory Medicine Tony Rubalcava M. B., Ch.B., M.D. [address] [place] [address] 55 [phone] (Wo rk) 07/31/2022 Office Visit Transplant Tony Rubalcava M.B., Ch.B., M.D. [address] [place] [address] 55 [phone] (Wo rk) 07/31/2022 Appointment Radiology Tony Rubalcava M.B., Ch.B., M.D. [address] [place] [address] 55 [phone] (Wo rk) 08/01/2022 Office Visit Transplant Tony Rubalcava M.B., Mukund Otoole [address] [place] [address] 55 [phone] (Wo rk) 08/01/2022 Clinical Support Transplant Tony Rubalcava M.B., Mukund Otoole [address] [place], [place] 55 [phone] (Wo rk) documented as of this encounter Procedures Procedure Name Priority Date/Time Associated Diagnosis Comme nts HLA CLASS II SAB Routine 07/16/2018 9:19 AM Pretransplant Resu lts for this ANTIBODY SCREEN JOINT YARNER Recipient Evaluation proc edure are in Exam the results Chronic Kidney Disease secti on. HLA CLASS I SAB Routine 07/16/2018 9:19 AM Pretransplant Resul ts for this ANTIBODY SCREEN JOINT YARNER Recipient Evaluation proc edure are in Exam the results Chronic Kidney Disease secti on. documented in this encounter Results HLA Class II SAB Antibody Screen (07/16/2018 9:19 AM JOINT YARNER) [facility] Method Time Signature Class II SAB Positive Not Applicable 07/18/2018 [facility] Overall 8:28 AM [facility] Class II SAB 37 07/18/2018 [facility] cPRA 8:28 AM [facility] Comment: ----ADDITIONAL INFORMATION---- This PRA is a [facility] Tiss ue Typing Laboratory calculated PRA. PRA is based on the antigen frequency of the Tissue Typing patient a nd donor population. ??PRA reflects all antibodie s with a normalized value (MFI) above 300. SAB DRB1 Specificity NONE 07/18/2018 8:28 AM JOINT YARNER [facility] PUS SAB [id number] Specificity NONE 07/18/2018 8:28 A M JOINT YARNER [facility] PUS SAB DQB1 Specificity see below 07/18/2018 8:28 AM JOINT YARNER [facility] PUS Comment: 2[7806], 2[417] Format: Serologic equivalent/abbreviated specificity [Normalized Value] shown in decreasing o rder. Note: A serologic equivalent/abbreviated specifi city displayed multiple times could indicate different alleles. SAB DPB1 Specificity NONE 07/18/2018 8:28 AM [facility] Comment: ----ADDITIONAL INFORMATION---- Method: [facility]inex Performing Laboratory CLIA# [id number] Specimen Anatomical Collection Method Collection Time Receive d Time (Source) Location / / Volume Laterality Blood (Blood, 07/16/2018 9:19 AM 07/16/20 18 9:37 Venous) JOINT YARNER AM JOINT YARNER Resulting Agency Comment Unable to Determine Date and Time of Col lection Mailed In Specimen Alexa Adan APRN, C.N.P., D.N.P. LAB HLA ORDERABLE S Performing Organization Address City/State/ZIP Code Phon e Number [facility] - [address] [place], [place] [address] [facility] HLA Class I SAB Antibody Screen (07/16/2018 9:19 AM JOINT YARNER) [facility] Method Time Signature Class I SAB Positive Not Applicable 07/18/2018 [facility] Overall 8:07 AM [facility] - Result [facility] Class I SAB 84 07/18/2018 [facility] cPRA 8:07 AM [facility] - [facility] Comment: ----ADDITIONAL INFORMATION---- This PRA is a [facility] ue Typing Laboratory calculated PRA. PRA is based on the antigen frequency of the Tissue Typing patient a nd donor population. ??PRA reflects all antibodie s with a normalized value (MFI) above 300. SAB A Specificity see below 07/18/2018 8:07 AM [facility] Comment: 32[4836], 31[3242], 25[2754], 23[2593], 24[2164], 24[2120], 30[1715], 30[1388] Format: Serologic equivalent/abbreviated specificity [Normalized Value] shown in decreasing o rder. Note: A serologic equivalent/abbreviated specifi [facility] displayed multiple times could indicate different alleles. SAB B Specificity see below 07/18/2018 8:07 AM [facility] Comment: 51[9094], 51[9437], 49[4998], 52[4892], 77[4657], 75[3947], 59[3884], 78[3866], 38[3853], 63[3804], 53[3311], 57[3083], 57[3067], 58[3051], 27[1230], 13[1187], 71[1163], 37[1145], 75[1024], 44[957], 44[795], 47[523], 13[ 421], 35[384] Format: Serologic equivalent/abbreviated specificity [Normalized Value] shown in decreasing o rder. Note: A serologic equivalent/abbreviated specifi city displayed multiple times could indicate different alleles. SAB C Specificity NONE 07/18/2018 8:07 AM JOINT YARNER [facility] Comment: ----ADDITIONAL INFORMATION---- Method: Luminex Performing Laboratory CLIA# [id number] Specimen Anatomical Collection Method Collection Time Receive d Time (Source) Location / / Volume Laterality Blood (Blood, 07/16/2018 9:19 AM 07/16/20 18 9:37 Venous) JOINT YARNER AM JOINT YARNER Resulting Agency Comment Unable to Determine Date and Time of Col lection Mailed In Specimen Alexa Adan APRN, C.N.P., D.N.P. LAB HLA ORDERABLE S Performing Organization Address City/State/ZIP Code Phon e Number [facility] - 200 [place] [address] [facility] documented in this encounter Visit Diagnoses Diagnosis Pretransplant Recipient Evaluation Exam Chronic Kidney Disease documented in this encounter Additional Health Concerns Assessment Noted Time PHQ-9 Depression Total Score: 3 09/13/2017 7:47 AM JOINT YARNER documented as of this encounter
--- OUTSIDE RECORDS SUMMARY | 2022-05-25 13:29 | XMS_ITS | Encounter Summary ---
:1960 Author Organization [facility] Address [address] [place] [address] Care Team Providers Name Role Phone Unavailable Primary Care Provider Unavailable Reason for Visit Reason Comments Med Refill Encounter Details Date Type Department Care Team Description 05/24/2018 Refill Division of Nephrology and Tanya, Neymar Yap Jr., Med Refill Hypertension in [facility] [address] [facility] 200 [place] [address] [place] [address] [phone] Social History Tobacco Use Types Packs/Day Years [...] How often do you attend advent or rastafari 1 to 4 times per [...] Nicholas APRN C.N.P., D.N.P., M.S.N. [address] [place] [address] 55 [phone] (Wo rk) 07/31/2022 Lab Laboratory Medicine Tony Rubalcava M. B., Sydnie, MDebra [address] [place] [address] 55 [phone] (Wo rk) 07/31/2022 Lab Laboratory Medicine Tony Rubalcava M. B., Sydnie, Mukund [address] [place] [address] 55 [phone] (Wo rk) 07/31/2022 Office Visit Transplant Tony Rubalcava M.B., Sydnie, MDebra [address] [place] [address] 55 [phone] (Wo rk) 07/31/2022 Appointment Radiology Tony Rubalcava M.B., Sydnie, MDebra [address] [place] [address] 55 [phone] (Wo rk) 08/01/2022 Office Visit Transplant Tony Rubalcava M.B., Ch.Mukund Richards [address] [place], [place] [phone] (Wo rk) 08/01/2022 Clinical Support Transplant Tony Rubalcava M.B., Mukund Otoole [address] [place], [place] 55 [phone] (Wo rk) documented as of this encounter Visit Diagnoses Not on filedocumented in this encounter Additional Health Concerns Assessment Noted Time PHQ-9 Depression Total Score: 3 09/13/2017 7:47 AM 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
--- OUTSIDE RECORDS SUMMARY | 2022-05-25 13:29 | XMS_ITS | Encounter Summary ---
:1960 Author Organization [facility] Address [address] [place] [address] Care Team Providers Name Role Phone Unavailable Primary Care Provider Unavailable Encounter Details Date Type Department Care Team Description 07/08/2018 Orders Only Division of Nephrology and Joel Fisher, Hypertension in [place], CHIEF ANALYTICS OFFICER, C.N.P., M.S.N. [place] [address] [facility] [address] [place] [phone] (Wo rk) Social History Tobacco Use Types [...] How often do you attend cheondoism or yazidism 1 to 4 times per [...] or slept in a half-way (including now)? Sex Assigned at Date Recorded Female 12/23/2021 4:18 AM CDT documented as of this encounter Plan of Treatment Upcoming Encounters Date Type Specialty Care Team Description 06/01/2022 Telemedicine Pharmacy An Nicholas APRN C.N.P., D.N.P., M.S.N. [address] [place] [address] 55 [phone] (Wo rk) 07/31/2022 Lab Laboratory Medicine Tony Rubalcava M. B., Sydnie, MDebra [address] [place] [address] 55 [phone] (Wo rk) 07/31/2022 Lab Laboratory Medicine Tony Rubalcava M. B., Sydnie, Mukund [address] [place] [address] 55 [phone] (Wo rk) 07/31/2022 Office Visit Transplant Tony Rubalcava M.B., ChBurke, MDebra [address] [place] [address] 55 [phone] (Wo rk) 07/31/2022 Appointment Radiology Tony Rubalcava M.B., Sydnie, MDebra [address] [place] [address] 55 [phone] (Wo rk) 08/01/2022 Office Visit Transplant Tony Rubalcava M.B., SydnieMukund [address] [place] [address], [place] 55 [phone] (Wo rk) 08/01/2022 Clinical Support Transplant Tony Rubalcava M.B., Mukund Otoole [address] [place], [place] 55 [phone] (Wo rk) documented as of this encounter Visit Diagnoses Not on filedocumented in this encounter Additional Health Concerns Assessment Noted Time PHQ-9 Depression Total Score: 3 09/13/2017 7:47 AM PIPE LINE WALKER documented as of this encounter
--- OUTSIDE RECORDS SUMMARY | 2022-05-25 13:29 | XMS_ITS | Encounter Summary ---
:1960 Author Organization [facility] Address [address] [place] [address] Care Team Providers Name Role Phone Unavailable Primary Care Provider Unavailable Encounter Details Date Type Department Care Team Description 07/17/2018 Orders Only Division of Nephrology and Neymar Martínez Hypertension in [place], ., D.O. [place] [address] [facility] [address] [place] [address] [phone] (Wo rk) Social History Tobacco Use Types [...] How often do you attend gnosticist or hindu 1 to 4 times per [...] Nicholas APRN C.N.P., D.N.P., M.S.N. [address] [place] [address] 55 [phone] (Wo rk) 07/31/2022 Lab Laboratory Medicine Tony Rubalcava M. B., Sydnie, MDebra [address] [place] [address] 55 [phone] (Wo rk) 07/31/2022 Lab Laboratory Medicine Tony Rubalcava M. B., Sydnie, MDebra [address] [place] [address] 55 [phone] (Wo rk) 07/31/2022 Office Visit Transplant Tony Rubalcava M.B., ChBurke, MDebra [address] [place] [address] 55 [phone] (Wo rk) 07/31/2022 Appointment Radiology Tony Rubalcava M.B., Sydnie, MDebra [address] [place] [address] 55 [phone] (Wo rk) 08/01/2022 Office Visit Transplant Tony Rubalcava M.B., Sydnie, MDebra [address] [place] [address] 55 [phone] (Wo rk) 08/01/2022 Clinical Support Transplant Tony Rubalcava M.B., Sydnie, Shashi. 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
--- OUTSIDE RECORDS SUMMARY | 2022-05-25 13:29 | XMS_ITS | Encounter Summary ---
:1960 Author Organization [facility] Address [address] [place] [address] Care Team Providers Name Role Phone Unavailable Primary Care Provider Unavailable Reason for Visit Reason Comments Med Refill Encounter Details Date Type Department Care Team Description 05/29/2018 Refill Division of Nephrology and [place], Neymar Yap Jr., Med Refill Hypertension in [facility] [address] [facility] 200 [place] [address] [place] [address] [phone] Social History Tobacco Use Types Packs/Day Years [...] How often do you attend presybeterian or christianity 1 to 4 times per [...] or slept in a alf (including now)? Sex Assigned at Date Recorded Female 12/23/2021 4:18 AM CDT documented as of this encounter Plan of Treatment Upcoming Encounters Date Type Specialty Care Team Description 06/01/2022 Telemedicine Pharmacy An Nicholas APRN C.N.P., D.N.P., M.S.N. [address] [place] [address] [phone] (Wo rk) 07/31/2022 Lab Laboratory Medicine Tony Rubalcava M. B., Sydnie, MDebra [address] [place] [address] 55 [phone] (Wo rk) 07/31/2022 Lab Laboratory Medicine Tony Rubalcava M. B., Sydnie, Mukund [address] [place] [address] 55 [phone] (Wo rk) 07/31/2022 Office Visit Transplant Tony Rubalcava M.B., Sydnie, MDebra [address] [place] [address] [phone] (Wo rk) 07/31/2022 Appointment Radiology Tony Rubalcava M.B., Sydnie, MDebra [address] [place] [address] 55 [phone] (Wo rk) 08/01/2022 Office Visit Transplant Tony Rubalcava M.B., Ch.Mukund Richards [address] [place], [place] 55 [phone] (Wo rk) 08/01/2022 Clinical Support Transplant Tony Rubalcava M.B., Mukund Otoole [address] [place], [place] 55 [phone] (Wo rk) documented as of this encounter Visit Diagnoses Not on filedocumented in this encounter Additional Health Concerns Assessment Noted Time PHQ-9 Depression Total Score: 3 09/13/2017 7:47 AM BAND SEWER documented as of this encounter
--- OUTSIDE RECORDS SUMMARY | 2022-05-25 13:29 | XMS_ITS | Encounter Summary ---
:1960 Author Organization [facility] Address [address] [place] [address] Care Team Providers Name Role Phone Unavailable Primary Care Provider Unavailable Encounter Details Date Type Department Care Team Description 06/07/2018 Clinical Communication [facility], [employer], C.N.P., Transplantation and D.N.P. Clinical Regeneration in [address] [place] [address] [place] [phone] [place] [address] [phone] Social History Tobacco Use Types Packs/Day Years [...] How often do you attend jew or zoroastrian 1 to 4 times per [...] Nicholas APRN C.N.P., D.N.P., M.S.N. [address] [place] [address] [phone] (Wo rk) 07/31/2022 Lab Laboratory Medicine Tony Rubalcava M. B., Sydnie, MDebra [address] [place] [address] [phone] (Wo rk) 07/31/2022 Lab Laboratory Medicine Tony Rubalcava M. B., ChBurke, MDebra [address] [place] [address] [phone] (Wo rk) 07/31/2022 Office Visit Transplant Tony Rubalcava M.B., ChBurke, MDebra [address] [place] [address] [phone] (Wo rk) 07/31/2022 Appointment Radiology Tony Rubalcava M.B., Sydnie, MDebra [address] [place] [address] [phone] (Wo rk) 08/01/2022 Office Visit Transplant Tony Rubalcava M.B.Sydnie M.D. 200 [place], [place] [phone] (Wo rk) 08/01/2022 Clinical Support Transplant Tony Rubalcava M.B., Mukund [place] 200 [place], [place] [phone] (Wo rk) documented as of this encounter Results HLA Class II SAB Antibody Screen (07/16/2018 9:19 AM PEST TECHNICIAN) [facility] Method Time Signature Class II SAB Positive Not Applicable 07/18/2018 [facility] Overall 8:28 AM [facility] Class II SAB 37 07/18/2018 [facility] cPRA 8:[address] [facility] Comment: ----ADDITIONAL INFORMATION---- This PRA is a [facility] ue Typing Laboratory calculated PRA. PRA is based on the antigen frequency of the Tissue Typing patient a nd donor population. ??PRA reflects all antibodie s with a normalized value (MFI) above 300. SAB DRB1 Specificity NONE 07/18/2018 8:28 AM [facility] SAB [id number] Specificity NONE 07/18/2018 8:28 A M [facility] SAB DQB1 Specificity see below 07/18/2018 8:28 AM [facility] Comment: 2[1352], 2[417] Format: Serologic equivalent/abbreviated specificity [Normalized Value] shown in decreasing o rder. Note: A serologic equivalent/abbreviated specifi city displayed multiple times could indicate different alleles. SAB DPB1 Specificity NONE 07/18/2018 8:28 AM [facility] Comment: ----ADDITIONAL INFORMATION---- Method: Luminex Performing Laboratory CLIA# [id number] Specimen Anatomical Collection Method Collection Time Receive d Time (Source) Location / / Volume Laterality Blood (Blood, 07/16/2018 9:19 AM 07/16/20 18 9:37 Venous) PEST TECHNICIAN AM PEST TECHNICIAN Resulting Agency Comment Unable to Determine Date and Time of Col lection Mailed In Specimen Alexa Adan APRN, C.N.P., D.N.PDavi LAB HLA ORDERABLE S Performing Organization Address City/State/ZIP Code Phon e Number [facility] - [address] [place], [place] [address] [facility] HLA Class I SAB Antibody Screen (07/16/2018 9:19 AM PEST TECHNICIAN) [facility] Method Time Signature Class I SAB Positive Not Applicable 07/18/2018 [facility] Overall 8:07 AM PEST TECHNICIAN LABORATORIES - Result [facility] Class I SAB 84 07/18/2018 [facility] cPRA 8:[address] [facility] Comment: ----ADDITIONAL INFORMATION---- This PRA is a [facility] ue Typing Laboratory calculated PRA. PRA is based on the antigen frequency of the Tissue Typing patient a nd donor population. ??PRA reflects all antibodie s with a normalized value (MFI) above 300. SAB A Specificity see below 07/18/2018 8:07 AM PEST TECHNICIAN [facility] Comment: 32[4836], 31[3242], 25[2754], 23[2593], 24[2164], 24[2120], 30[1715], 30[1388] Format: Serologic equivalent/abbreviated specificity [Normalized Value] shown in decreasing o rder. Note: A serologic equivalent/abbreviated specifi city displayed multiple times could indicate different alleles. SAB B Specificity see below 07/18/2018 8:07 AM PEST TECHNICIAN [facility] Comment: 51[9594], 51[6537], 49[4998], 52[4892], 77[4657], 75[3947], 59[3884], 78[3866], 38[3853], 63[3804], 53[3311], 57[3083], 57[3067], 58[3051], 27[1230], 13[1187], 71[1163], 37[1145], 75[1024], 44[957], 44[795], 47[523], 13[ 421], 35[384] Format: Serologic equivalent/abbreviated specificity [Normalized Value] shown in decreasing o rder. Note: A serologic equivalent/abbreviated specifi city displayed multiple times could indicate different alleles. SAB C Specificity NONE 07/18/2018 8:07 AM PEST TECHNICIAN [facility]ORATOR[facility] - [facility] Comment: ----ADDITIONAL INFORMATION---- Method: Luminex Performing Laboratory CLIA# [id number] Specimen Anatomical Collection Method Collection Time Receive d Time (Source) Location / / Volume Laterality Blood (Blood, 07/16/2018 9:19 AM 07/16/20 18 9:37 Venous) PEST TECHNICIAN AM PEST TECHNICIAN Resulting Agency Comment Unable to Determine Date and Time of Col lection Mailed In Specimen Alexa Adan APRN, C.N.P., D.N.P. LAB HLA ORDERABLE S Performing Organization Address City/State/ZIP Code Phon e Number [facility] - [address] [place], [place] [address] [facility] documented in this encounter Visit Diagnoses Diagnosis Pretransplant Recipient Evaluation Exam - Primary Chronic Kidney Disease documented in this encounter Additional Health Concerns Assessment Noted Time PHQ-9 Depression Total Score: 3 09/13/2017 7:47 AM PEST TECHNICIAN documented as of this encounter
--- OUTSIDE RECORDS SUMMARY | 2022-05-25 13:30 | XMS_ITS | Encounter Summary ---
:1960 Author Organization [facility] Address [address] [place] [address] Care Team Providers Name Role Phone Unavailable Primary Care Provider Unavailable Reason for Referral Transplant (Routine) - Closed Specialty Diagnoses / Procedures Referred By Contact Refer red To Contact Transplant Surgery / Diagnoses [facility]st[facility] Mukund 200 [place] [address] Referral ID Status Reason Start Date Expiration Date Visits Requ ested Visits Authorized [id number] Closed 04/03/2018 04/03/2019 1 1 Encounter Details Date Type Department Care Team Description 04/02/2018 Clinical Communication Department of Urology Provider, Unknown in [place], [place] [address] [place] [phone] Social History Tobacco Use Types Packs/Day Years Used Date Smoking Tobacco: Every Day Alcohol Habits Answer Date Recorded How often [...] How often do you attend episcopalian or bahai 1 to 4 times per [...] Notes Telephone Encounter - Xi Valerio - 04/03/2018 2:08 PM CDT Pt called back and requested a reschedule of listing visit and ua's. Because of availability, the stent exch was also rescheduled. Pag was sent. Telephone Encounter - Sveta Ya - 04/03/2018 10:35 AM CDT LM for pt to call back. Please let her know about her transplant appt that is scheduled for 04/09. This is to be cleared for her stent exchange Telephone Encounter - Sujey Paniagua M.D. - 04/03/2018 9:57 AM CDT Order placed for transplant, pre-op clearance Addendum Note - Sujey Paniagua M.D. - 04/03/2018 9:57 AM CDT Addended by: SUJEY PANIAGUA on: 04/03/2018 09:57 AM Modules accepted: Orders Telephone Encounter - Sveta Ya - 04/03/2018 9:28 AM CDT I have the pt set up for tomorrow for the listing appt and urines. Pt is aware. SIDNEY can't clear thispt they said transplant has to. Transplant needs a new order. They said to order a Neph Pre-transplant order and the reason comment would be stent exchange. Once I have that order, I can get that part scheduled. Transplant can be reached at . We will need to call pt to verify that appt as well Thanks for your help! Telephone Encounter - Sujey Paniagua M.D. - 04/03/2018 8:20 AM CDT Listed for 04/18 OPC stent exchange with Dr. Spear service as before, placed order for SIDNEY (sinceher last OR visit appears to be in Aug) and listing visit prior (can be with [facility] or [facility] whoever is available for stent listing). She will need to do urines at least 1 week prior. Telephone Encounter - Sveta Ya - 04/02/2018 1:20 PM CDT Pt called through Nephrology but said she was probably past due for her stent exchange. Pt has dialysis Mondays, Wednesdays and Fridays. Can someone help set up the stent exchange she is due for? Then I will probably need help with an override for a listing visit as well. I believe this is a Dr. Lance pt if not please forward to the correct service. There are orders in system for urines already. Pt can be reached at the numbers in the system. documented in this encounter Plan of Treatment Upcoming Encounters Date Type Specialty Care Team Description 06/01/2022 Telemedicine Pharmacy BrownAn APRN, C.N.P., JonnieP., M.S.N. [address] [place] [address] [phone] ( rk) 07/31/2022 Lab Laboratory Medicine Tony Rubalcava M. B., Sydnie, Mukund [address] [place] [address] [phone] ( rk) 07/31/2022 Lab Laboratory Medicine Tony Rubalcava M. B., Sydnie, Mukund [address] [place] [address] [phone] ( behzad) 07/31/2022 Office Visit Transplant Tony Rubalcava M.B., Sydnie, Mukund [address] [place] [address] [phone] ( behzad) 07/31/2022 Appointment Radiology Tony Rubalcava M.B., Sydnie, Mukund [address] [place] [address] [phone] ( behzad) 08/01/2022 Office Visit Transplant Tony Rubalcava M.B., Sydnie, Mukund [address] [place] [address] [phone] ( behzad) 08/01/2022 Clinical Support Transplant Tony Rubalcava M.B., Sydnie, Mukund [address] [place] [address] [phone] ( behzad) Scheduled Referrals Name Type Priority Associated Diagnoses Order S chedule Transplant - Kidney Outpatient Referral Routine Obstruction Ur eter Expected: transplant consult 8 (clinic) (Approximate), Expires: 04/03/2021 documented as of this encounter Visit Diagnoses Diagnosis Obstruction Ureter - Primary documented in this encounter Additional Health Concerns Assessment Noted Time PHQ-9 Depression Total Score: 3 09/13/2017 7:47 AM WATER CONSERVATION SPECIALIST documented as of this encounter
--- OUTSIDE RECORDS SUMMARY | 2022-05-25 13:30 | XMS_ITS | Encounter Summary ---
:1960 Author Organization [facility] Address [address] [place] [address] Care Team Providers Name Role Phone Unavailable Primary Care Provider Unavailable Encounter Details Date Type Department Care Team Description 01/22/2018 Clinical Communication Division of Nephrology Deanne Fisher and Hypertension in , STENCIL MAKER, C.N.P.[place], [place] M.S.N. 200 [facility] 200 [place] [phone] Social History Tobacco Use Types Packs/Day Years [...] How often do you attend spiritism or yazidism 1 to 4 times per [...] or slept in a snf (including now)? Sex Assigned at Date Recorded Female 12/23/2021 4:18 AM CDT documented as of this encounter Plan of Treatment Upcoming Encounters Date Type Specialty Care Team Description 06/01/2022 Telemedicine Pharmacy An Nicholas APRN C.N.P., D.N.P., M.S.N. [address] [place] [address] [phone] (Wo rk) 07/31/2022 Lab Laboratory Medicine Tony Rubalcava M. B., Sydnie, MDebra [address] [place] [address] [phone] (Wo rk) 07/31/2022 Lab Laboratory Medicine Tony Rubalcava M. B., Sydnie, Mukund [address] [place] [address] [phone] (Wo rk) 07/31/2022 Office Visit Transplant Tony Rubalcava M.B., Sydnie, MDebra [address] [place] [address] [phone] (Wo rk) 07/31/2022 Appointment Radiology Tony Rubalcava M.B., Sydnie, Mukund [address] [place] [address] [phone] (Wo rk) 08/01/2022 Office Visit Transplant Tony Rubalcava M.B., Sydnie, Mukund [address] [place] [address] [phone] (Wo rk) 08/01/2022 Clinical Support Transplant Tony Rubalcava M.B., Sydnie, Shashi. [address] [place], [place] [phone] (Wo rk) documented as of this encounter Visit Diagnoses Not on filedocumented in this encounter Additional Health Concerns Assessment Noted Time PHQ-9 Depression Total Score: 3 09/13/2017 7:47 AM ART SPECIALIST documented as of this encounter
--- OUTSIDE RECORDS SUMMARY | 2022-05-25 13:30 | XMS_ITS | Encounter Summary ---
:1960 Author Organization [facility] Address [address] [place] [address] Care Team Providers Name Role Phone Unavailable Primary Care Provider Unavailable Encounter Details Date Type Department Care Team Description 05/14/2018 Surgery Outpatient Procedure Geraldo Spear URETERAL STENT. Center in Catrachita Hernandez M.D. [address] 200 [place] [phone] Social History Tobacco Use Types Packs/Day Years [...] How often do you attend jainism or buddhism 1 to 4 times per [...] Sign Reading Time Taken Comments Blood Pressure 113/65 05/14/2018 1:30 PM CDT Pulse 66 05/14/2018 1:32 PM CDT Temperature 36.6 ??C (97.9 ??F) 05/14/2018 1:19 PM CDT Respiratory Rate 18 05/14/2018 1:41 PM CDT Oxygen Saturation 94% 05/14/2018 1:32 PM CDT Inhaled Oxygen Concentration - - Weight - - Height - - Body Mass Index - - documented in this encounter Discharge Instructions AttachmentsThe following attachments cannot be sent through Care Everywhere.Care Following a Cystoscopy (Divehi)documented in this encounter Medications at Time of Discharge Medication Sig Dispensed Refills Start Date End Date hydrocortisone Apply 1 application 0 09/18/2017 (for_HYTONE) 2.5 % cream topically daily as needed (Eczema). acetaminophen (TYLENOL) Take 2 capsules 30 capsule 0 018 05/24/2018 500 mg capsule (1,000 mg total) by mouth every 6 (six) hours as needed for pain for up to 10 days. amLODIPine (for_NORVASC) Take 1 tablet by 0 07/1007/01/2018 10 mg tablet mouth daily. B complex Take 1 tablet by 0 06/13/2017 05/31/20 19 24-jfwrl-C-biot-zinc mouth daily. (DIALYVITE) [phone] is-xi-oqd-mg tablet ciprofloxacin (CIPRO) Take 1 tablet by 6 tablet 0 05/10/20 18 09/03/2018 250 mg tablet mouth evening prior to stent exchange, 1 tablet evening of, then twice a day until gone. gabapentin Take 2 capsules by 0 09/18/20172017 (for_NEURONTIN) 100 mg mouth 2 (two) times capsule a day. lidocaine-prilocaine Apply 1 application 0 201607/08/2018 (for_EMLA) 2.5-2.5 % topically as cream directed. losartan (for_COZAAR) 50 Take 1 tablet by 0 07/1007/01/2018 mg tablet mouth daily. mupirocin (BACTROBAN) 2 Apply 1 application 22 g 1 11/201704/25/2019 % ointmentIndications: topically 3 (three) Paronychia Finger Left times a day. For 14 days mycophenolate (CELLCEPT) Take 2 capsules by 0 09/201605/27/2018 250 mg capsule mouth 2 (two) times a day. nebivolol (BYSTOLIC) 10 Take 1 tablet by 0 201608/26/2018 mg tablet mouth daily. predniSONE Take 1 tablet by 0 05/21/2017 05/27/20 18 (for_DELTASONE) 5 mg mouth daily. tablet rosuvastatin Take 1 tablet by 0 09/14/20172018 (for_CRESTOR) 5 mg mouth daily. tablet tacrolimus (for_PROGRAF) Take 2 capsules by 0 05/27/2018 1 mg capsule mouth 2 (two) times a day. tamsulosin (FLOMAX) 0.4 Take 1 capsule (0.4 30 capsule 2 04/25/2019 mg 24 hr capsule mg total) by mouth daily as needed (spasm pain assoc with stent). documented as of this encounter OR Notes Op Note - Teresa Antonio M.D. - 05/14/2018 2:18 PM CDT FULL OP NOTE Procedure(s) with comments: EXCHANGE URETERAL STENT. (Right) - proceed as indicated. RETROGRADE PYELOGRAM. (Right) CYSTOURETHROSCOPY Surgeon(s) and Role: * Geraldo Spear M.D. - Primary * Teresa Antonio M.D. - Resident - Assisting Anesthesia Type: Monitored Anesthesia Care Pre-Operative Diagnosis: Obstruction Ureter [N13.5]. Post-Operative Diagnosis: Same as pre-operative diagnosis Findings: As expected Complications: None Description of Procedure: FINDINGS AT THE TIME OF THE PROCEDURE 1. Cystoscopy was unremarkable. Right ureteral orifice noted to be at dome of the bladder - consistent with patient being status post renal transplant 2. A stent was noted to be emanating from the right ureteral orifice with no stone encrustation. 3. Right retrograde pyelogram performed. No evidence of hydronephrosis 4. Right stent exchange, 7 Fr x 20 cm NARRATIVE OF EVENTS After appropriate patient identification and verification of informed consent, the patient was brought into the OR and placed under monitored anesthesia care. The patient was then prepped and draped inthe standard sterile fashion in the dorsal lithotomy position. After surgical pause and confirmationof antibiotic administration, we proceeded with a cystoscopy. The bladder was systematically examined with no tumors or lesions concerning for malignancy. Right ureteral orifice noted to be at the domeof the bladder. This is consistent with the patient being status post renal transplant. He stent wasnoted to be emanating from the right ureteral orifice with no encrustation. Using stent graspers the distal end of the Right stent was grasped and brought out to the urethral meatus under fluoroscopy. A Sensor wire was advanced through the lumen of the stent up to the Right renal collecting system. The old stent was removed, and a tiger tail was placed. The guidewire was removed and a retrograde pyelogram was performed which showed no evidence of hydronephrosis. The guidewire was replaced, the tigertail was withdrawn, and a new 7 Fr x 28 cm JJ ureteral stent was advanced over the wire and deployedin the standard fashion with curls in the renal pelvis and in the bladder. The bladder was drained at the conclusion of procedure. The patient was awoken from anesthesia and transferred to the recoveryroom in stable condition. Specimens * No specimens in log * Drains * No drains in log * Estimated Blood Loss 0 mL Implants Implant Name Type Inv. Item Serial No. Consumer Lender Lot No. LRB No. Used Action STENT INLAY 8FR X 20CM - [id number] Ureteral Stent [employer] 1 Explanted STNT URET INL [id number] - [id number] Ureteral Stent STNT URET INL 8FX20 [employer] [id number] Right 1 Implanted Teresa Antonio M.D. documented in this encounter Plan of Treatment Upcoming Encounters Date Type Specialty Care Team Description 06/01/2022 Telemedicine Pharmacy An Nicholas APRN, C.N.P., WhitneyNDaviPDavi, M.S.N. [address] [place] [address] [phone] (Wo rk) 07/31/2022 Lab Laboratory Medicine Tony Rubalcava M. B., Sydnie, Mukund [address] [place] [address] [phone] (Wo rk) 07/31/2022 Lab Laboratory Medicine Tony Rubalcava M. B., Sydnie, Mukund [address] [place] [address] [phone] (Wo rk) 07/31/2022 Office Visit Transplant Tony Rubalcava M.B., Sydnie, Mukund [address] [place] [address] [phone] (Wo behzad) 07/31/2022 Appointment Radiology Tony Rubalcava M.B., Sydnie, Mukund [address] [place] [address] 55 [phone] (Wo rk) 08/01/2022 Office Visit Transplant Tony Rubalcava M.B., Sydnie, MDebra [address] [place] [address] [phone] (Nicolas wen) 08/01/2022 Clinical Support Transplant Tony Rubalcava M.B., Sydnie, MDebra [address] [place] [phone] (Nicolas wen) documented as of this encounter Procedures Procedure Name Priority Date/Time Associated Comments Diagnosis FL FLUORO LESS THAN 1 RAD - Routine 05/14/2018 2:58 Re sults for HOUR (most inpatients PM CDT this proced ure and all are in the outpatients) results section. CYSTOURETHROSCOPY 05/14/2018 1:39 Obstruction PM CDT Ureter Special Needs Listing: [place] [id number]. RETROGRADE PYELOGRAM 05/14/2018 1:39 PM CDT Obstructio n Ureter Special Needs Listing: [place] [id number]. EXCHANGE URETERAL STENT 05/14/2018 1:39 PM CDT Obstruc tion Ureter Special Needs Listing: [place] [id number]. documented in this encounter Results FL Fluoro Less Than 1 Hour (05/14/2018 2:58 PM CDT) Specimen (Source) Anatomical Location Collection Method / Collectio n Time Received Time / Laterality Volume Narrative [id number] - 05/14/2018 2:59 PM CDT This exam does not require a radiologist review or interpretation. Please refer to the patient? s medical record on this date for clinical details. Daniel WESTFALL FLUOROSCOPY PROCEDURES Performing Organization Address City/State/ZIP Code Phon e Number [id number] NA documented in this encounter Visit Diagnoses Diagnosis Obstruction Ureter - Primary Obstruction Ureter documented in this encounter Admitting Diagnoses Diagnosis Obstruction Ureter documented in this encounter Administered Medications Inactive Administered Medications - up to 3 most recent administrations Medication Order MAR Action Action Date Dose Rate Site iohexol 300 mg iodine/mL solution Given 05/14/2018 2:28 PM CDT 5 mL Other (OMNIPAQUE) As needed, Starting on Sun05/14/18 at 1428, Intra-Op lactated ringers New Bag 05/14/2018 1:53 PM CDT 20 mL/hr, intravenous, Continuous, Starting on Sun05/14/18 at 1400 lidocaine HCl 2 % topical jelly 1 Given 05/14/2018 2:08 PM CDT 1 application Other application (UROJET) 1 application, urethral, Once, On e 05/14/18 at 1345, For 1 dose, Intra-Op sodium chloride injection 10 mL 10 mL, intravenous, As needed, line care , Starting on e 05/14/18 at 1309, Pre-Op, Peripheral Intravenous Catheter and Rapid Infusion Cat heter, prior to blood sampling, post blood transfusion or post blood samplin g sodium chloride injection 3 mL 3 mL, intravenous, As needed, line care, Starting on Sun05/14/18 at 1309, Pre-Op, Prior to and following infusion and betw een multiple consecutive infusions: sodium chloride 0.9 % injection sodium chloride injection 3 mL 3 mL, intravenous, Every 12 hours scheduled, First dos e on Sun05/14/18 at 2100, Pre-Op, Peripheral Intravenous Catheter and Rapid Infu mario alberto Catheter, when no infusion to maintain patency documented in this encounter Active and Recently Administered Medications Times are shown in CDT. Scheduled Medication Order 05/12/2018 05/13/2018 05/14/2018 acetaminophen tablet 1,000 mg (TYLENOL) 1400 (Due) 1,000 mg, oral, Once, Sun05/14/18 at 1400, For 1 dose, Pre-Op ceFAZolin injection 2 g (ANCEF) (COMPLETED) 1409 (Given - Provider: Bree Persaud APRN, FLORENCIO) 2 g, intravenous, Once, On Sun05/14/18 a t 1345, For 1 dose, Intra-Op, Preoperatively within 1 hour prior to surgical incision. Adminster IV push over 3 minutes. Add 5 mL NS to 1 gram vial for a final co ncentration of 200 mg/mL., Drug Monitori ng Program: Pharmacist to adjust medication order based on comorbities and indication., Indications: Prophylaxis, surgical lidocaine HCl 2 % topical jelly 1 application (UROJET) (COMPLETE D) 1345 (Due)1408 (Given - Provider: Chiara Schmitz R.N. - Comment: urethra) 1 application, urethral, Once, Sun05/14/18 at 1345, For 1 dose, Intra-Op sodium chloride injection 3 mL 3 mL, intravenous, Every 12 hours schedu led, First dose on Sun05/14/18 at 2100, Pre-Op, Peripheral Intravenous Catheter and Rapid Infusion Catheter, when no infusion to maintain patency sodium chloride injection 3 mL 3 mL, intravenous, Every 12 hours schedu led, First dose on Sun05/14/18 at 2100, Pre-Op, Peripheral Intravenous Catheter and Rapid Infusion Catheter, when no infusion to maintain patency Continuous Medication Order 05/12/2018 05/13/2018 05/14/2018 lactated ringers 1353 (New Bag - Provider: Bree M Mullenbach, ASSISTANT CORPORATE CONTROLLER, LADIES LOCKER ROOM ATTENDANT)1540 (Stopped - Provider: Rupali Mckee R.N.) 20 mL/hr, intravenous, at 20 mL/hr, Continuous, Starting Tue 04/21 01/04 at 1400 PRN Medication Order 05/12/2018 05/13/2018 05/14/2018 iohexol 300 mg iodine/mL solution (OMNIPAQUE) (CANCELED) 1428 (Given - Provider: Teresa Antonio M.D. - Comment: right ureter/kidney) As needed, Starting 05/14/18 at 1428, Intra-Op sodium chloride injection 10 mL 10 mL, intravenous, As needed, line care , Starting 05/14/18 at 1309, Pre-Op, Peripheral Intravenous Catheter and Rapid Infusion Catheter, prior to blood sampling, post blood transfusion or post blood sampling sodium chloride injection 10 mL 10 mL, intravenous, As needed, line care , Starting 05/14/18 at 1355, Pre-Op, Peripheral Intravenous Catheter and Rapid Infusion Catheter, prior to blood sampling, post blood transfusion or post blood sampling sodium chloride injection 3 mL 3 mL, intravenous, As needed, line care, Starting 05/14/18 at 1309, Pre-Op, Prior to and following infusion and between multiple consecutive infusions: sodium chloride 0.9 % injection sodium chloride injection 3 mL 3 mL, intravenous, As needed, line care, Starting 05/14/18 at 1355, Pre-Op, Prior to and following infusion and between multiple consecutive infusions: sodium chloride 0.9 % injection documented in this encounter Additional Health Concerns Assessment Noted Time PHQ-9 Depression Total Score: 3 09/13/2017 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
--- OUTSIDE RECORDS SUMMARY | 2022-05-25 13:30 | XMS_ITS | Encounter Summary ---
:1960 Author Organization [facility] Address [address] [place] [address] Care Team Providers Name Role Phone Unavailable Primary Care Provider Unavailable Encounter Details Date Type Department Care Team Description 01/15/2018 Orders Only Division of Nephrology Deanne Fisher hronic Failure Renal End Stage Renal Disease Dialysis Dependent (HCC) (Primary Dx); and Hypertension in L, MEDICAL ASSISTANT FLOAT, C.N.P., Hemo dialysis Status (HCC) [place], [place] M.S.N. [address] [facility] [address] [place] [phone] Social History Tobacco Use Types Packs/Day Years [...] How often do you attend hinduism or uatsdin 1 to 4 times per [...] slept in a senior care (including now)? Sex Assigned at Date Recorded Female 12/23/2021 4:18 AM CDT documented as of this encounter Plan of Treatment Upcoming Encounters Date Type Specialty Care Team Description 06/01/2022 Telemedicine Pharmacy An Nicholas APRN C.N.P., D.N.P., M.S.N. [address] [place] [phone] (Nicolas wen) 07/31/2022 Lab Laboratory Medicine Tony Rubalcava M. B., ChDaviBDavi, M.D. [address] [place] [phone] (Nicolas wen) 07/31/2022 Lab Laboratory Medicine Tony Rubalcava M. B., Ch.BDavi, MDaviD. [address] [place] [phone] (Nicolas wen) 07/31/2022 Office Visit Transplant Tony Rubalcava M.B., ChDaviBDavi, MDaviD. [address] [place] [phone] (Nicolas wen) 07/31/2022 Appointment Radiology Toyn Rubalcava M.B., Ch.BDavi, MDaviD. 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
--- OUTSIDE RECORDS SUMMARY | 2022-05-25 13:30 | XMS_ITS | Encounter Summary ---
:1960 Author Organization [facility] Address [address] [place] [address] Care Team Providers Name Role Phone Unavailable Primary Care Provider Unavailable Reason for Referral Outpatient (Routine) - Closed Specialty Diagnoses / Procedures Referred By Contact Refer red To Contact Urology Gaudencio Lance M.D. [place] 200 [place] [address] Referral ID Status Reason Start Date Expiration Date Visits Requ ested Visits Authorized [id number] Closed 04/03/2018 04/03/2019 1 1 Encounter Details Date Type Department Care Team Description 04/03/2018 Orders Only Department of Urology Daniel Paniagua, Obstr uction Ureter in [facility] bozena Duval (Primary Dx) [address] [place] [phone] Social History Tobacco Use Types Packs/Day Years [...] How often do you attend anabaptism or islam 1 to 4 times per [...] Nicholas APRN C.N.P., D.N.P., M.S.N. [address] [place] [address] [phone] (Wo rk) 07/31/2022 Lab Laboratory Medicine Tony Rubalcava M. B., ChBurke, MDebra [address] [place] [address] [phone] (Wo rk) 07/31/2022 Lab Laboratory Medicine Tony Rubalcava M. B., ChBurke, MDebra [address] [place] [address] 55 [phone] (Wo rk) 07/31/2022 Office Visit Transplant Tony Rubalcava M.B., ChBurke, MDebra [address] [place] [address] [phone] (Wo rk) 07/31/2022 Appointment Radiology Tony Rubalcava M.B., ChBurke, MDebra [address] [place] [address] 55 [phone] (Wo rk) 08/01/2022 Office Visit Transplant Tony Rubalcava M.B., Mukund [place] [address] [place] [address] [phone] (Wo rk) 08/01/2022 Clinical Support Transplant Tony Rubalcava M.B., Mukund [place] 200 [place], [place] [phone] (Wo rk) Scheduled Referrals Name Type Priority Associated Diagnoses [facility] Outpatient Referral Routine Expect ed: visit (clinic) - 04/03/2018 Other provider (Approximate) , Expires: 04/03/2021 documented as of this encounter Results (ABNORMAL) Hemoglobin A1c (05/10/2018 11:01 AM CDT) [facility] gist Method Time Signature Hemoglobin A1c, 5.8 (H) 4.0 - 5.6 05/10/2018 [facility] B % 11:45 AM CDT [facility] - [facility] Comment: Hemoglobin A1c values of 5.7-6.4 percent indicate an increased risk for developing diabetes lola dowd. In diabetic patients, HbA1c goals should be discussed with healthcare provider. Specimen Anatomical Collection Method Collection Time Receive d Time (Source) Location / / Volume Laterality Blood (Blood, 05/10/2018 11:01 05/10/2018 Venous) AM CDT 11:24 AM CDT Gaudencio Lance M.D. 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
--- OUTSIDE RECORDS SUMMARY | 2022-05-25 13:30 | XMS_ITS | Encounter Summary ---
:1960 Author Organization [facility] Address [address] [place] [address] Care Team Providers Name Role Phone Unavailable Primary Care Provider Unavailable Encounter Details Date Type Department Care Team Description 03/20/2018 Documentation Division of Nephrology and Clara Clarke R.N. Hypertension in [place], [facility] 1 [place], [place] 200 [facility] [address] [place] [address] [phone] Social History Tobacco Use Types Packs/Day Years [...] How often do you attend zoroastrian or roman catholic 1 to 4 times [...] encounter Progress Notes Clara Clarke R.N. 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 Twin Vanegas ?? LOCATION OF ACCESS: Left brachial basilic with transposition ?? PERTINENT PROCEDURAL HISTORY: 57 year old female referred by Deanne Fisher CNP for fistulogram and angioplasty as indicated. She is being referred due to decreased thrill and bruit over the last fewweek. Her last fistulogram was on 10/11/[address] Palacios and required angioplasty. She dialyzes at [facility] on a Sunday, and Sunday schedule. ?? DIABETES: Patient states that she does not have diabetes, that this was incorrectly entered into hermedical history. ?? ANTICOAGULATION: Takes no anticoagulation medications. ?? LABORATORY RESULTS: Current Labs from outside materials will be scanned into [employer]. ??ALLERGIES/ADVERSE REACTIONS Allergies Allergen Reactions ??? Epoetin Rolando GI intolerance ERYTHROPOIETIN- vomiting ??? Latex Other (see comments) Eczema IMPRESSION/REPORT/PLAN SPECIFIC PATIENT INSTRUCTIONS: [facility]26[facility] at 9:30am. You must have a sql bi developer to drive you home due to [...] you take insulin please follow these instructions: Patient does not take insulin If you are on Coumadin or blood thinners, please follow these instructions: Patient does not take. Plan on spending about half to three fourths of the day in [place] for this procedure. There is generally some waiting involved prior to the procedure. Post Access Instructions: Continue your normal dialysis schedule. Appointment scheduled via Sary Goodrich at Interventional Radiology. documented in this encounter Plan of Treatment Upcoming Encounters Date Type Specialty Care Team Description 06/01/2022 Telemedicine Pharmacy An Nicholas APRN C.N.P., D.N.P., M.S.N. [address] [place] [address] 55 [phone] (Nicolas wen) 07/31/2022 Lab Laboratory Medicine Tony Rubalcava M. B., ChBurke, M.D. [address] [place] [address] 55 [phone] (Nicolas wen) 07/31/2022 Lab Laboratory Medicine Tony Rubalcava M. B., ChDaviBDavi, M.D. [address] [place] [address] 55 [phone] (Nicolas wen) 07/31/2022 Office Visit Transplant Tony Rubalcava M.B., ChDaviBDavi, M.D. [address] [place] [address] 55 [phone] (Nicolas wen) 07/31/2022 Appointment Radiology Tony Rubalcava M.B., BDavi, MDaviD. 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
--- OUTSIDE RECORDS SUMMARY | 2022-05-25 13:30 | XMS_ITS | Encounter Summary ---
:1960 Author Organization [facility] Address [address] [place] [address] Care Team Providers Name Role Phone Unavailable Primary Care Provider Unavailable Encounter Details Date Type Department Care Team Description 03/14/2018 Hospital Encounter Department of Pompeian, Pretrans plant Recipient Evaluation Exam; Laboratory Medicine Angelina Belle, Chronic Kidney Disease and Pathology, CHRISTOPHER C.N.PDavi, [facility] [address] [place] [address] [address] [facility] [address] [place], [place] [phone] (Work) [phone] Social History Tobacco Use Types Packs/Day Years [...] How often do you attend hinduism or confucianist 1 to 4 times per [...] % cream topically daily as needed (Eczema). amLODIPine (for_NORVASC) Take 1 tablet by 0 07/1007/01/2018 10 mg tablet mouth daily. B complex Take 1 tablet by 0 06/13/2017 05/31/20 19 61-ytrqz-K-biot-zinc mouth daily. (DIALYVITE) [id number] af-ew-peh-mg tablet ciprofloxacin Take 1 tablet by 0 09/18/201705/10 (for_CIPRO) 500 mg mouth as directed. tablet gabapentin Take 2 capsules by 0 09/18/20172017 (for_NEURONTIN) 100 mg mouth 2 (two) times a capsule day. lidocaine-prilocaine Apply 1 application 0 201607/08/2018 [...] capsule mouth 2 (two) times a day. documented as of this encounter Plan of Treatment Upcoming Encounters Date Type Specialty Care Team Description 06/01/2022 Telemedicine Pharmacy An Nicholas APRN C.N.P., D.N.P., M.S.N. [address] [place] [address] 55 [phone] ( rk) 07/31/2022 Lab Laboratory Medicine Tony Rubalcava M. B., Sydnie, MDebra [address] [place] [address] [phone] ( rk) 07/31/2022 Lab Laboratory Medicine Tony Rubalcava M. B., Sydnie, MDebra [address] [place] [address] [phone] ( rk) 07/31/2022 Office Visit Transplant Tony Rubalcava M.B., ChBurke, MDebra [address] [place] [address] [phone] ( rk) 07/31/2022 Appointment Radiology Tony Rubalcava M.B., ChBurke, MDebra [address] [place] [address] [phone] ( rk) 08/01/2022 Office Visit Transplant Tony Rubalcava M.B., ChBurke, MDebra [address] [place] [address] [phone] (Wo rk) 08/01/2022 Clinical Support Transplant Tony Rubalcava M.B., Sydnie, Shashi. [address] [place], [place] [phone] (Wo rk) documented as of this encounter Procedures Procedure Name Priority Date/Time Associated Diagnosis Comme nts HIV-1/-2 AG AND AB Routine 04/13/2018 10:52 Resul ts for this SCREEN, PLASMA AM CDT procedure are in the results section. HLA CLASS II SAB Routine 04/13/2018 10:52 Pretransplant Result s for this ANTIBODY SCREEN AM CDT Recipient Evaluation proc edure are in Exam the results Chronic Kidney Disease secti on. HLA CLASS I SAB Routine 04/13/2018 10:52 Pretransplant Results for this ANTIBODY SCREEN AM CDT Recipient Evaluation proc edure are in Exam the results Chronic Kidney Disease secti on. documented in this encounter Results HIV-1/-2 Ag and Ab Screen, Plasma (04/13/2018 10:52 AM CDT) P athologist Signature HIV-1/-2 Ag Negative Negative 04/13/2018 [facility] and Ab Screen, 2:35 PM CDT [facility] Comment: Negative result does not rule out HIV in fection. If exposure to HIV infection occurred <14 d ays ago, contact the laboratory to request additi on of HIV-1 RNA detection / quantification test (HIV QN). Serum specimen received and tested upon request. Specimen Anatomical Collection Method Collection Time Receive d Time (Source) Location / / Volume Laterality Blood 04/13/2018 10:52 04/13/2018 1:58 AM CDT PM CDT Narrative [facility] R - 04/13/2018 2:35 PM CDT Specimen Information: Specimen ID: [id number] Specimen Type: Blood Specimen Collection Start Date: 04/13/20 10:52 AM Specimen Received Date: 04/13/2018 ??1:5 8 PM Specimen ID: [id number] Specimen Type: Blood Specimen Collection Start Date: 04/13/20 ??1:58 PM Specimen Received Date: 04/13/2018 ??1:5 8 PM Resulting Agency Comment Mailed In Specimen Angelina Gaona APRN, C.N.P., M.S.N. LAB MICROBIOL OGY - BLOOD ORDERABLES Performing Organization Address City/[facility]/ZIP Code Phon e Number [facility] [address] [place], [place] [address] [facility] HLA Class II SAB Antibody Screen (04/13/2018 10:52 AM CDT) [facility] Method Time Signature Class II SAB Positive Not Applicable 04/16/2018 [facility] Overall 11:30 AM LABORATORIES - Result CDT [facility] Class II SAB 37 04/16/2018 [facility] cPRA 11:30 AM LABORATORIES - CDT [facility] Comment: ----ADDITIONAL INFORMATION---- This PRA is a [facility] ue Typing Laboratory calculated PRA. PRA is based on the antigen frequency of the Tissue Typing patient a nd donor population. ??PRA reflects all antibodie s with a normalized value (MFI) above 300. SAB DRB1 Specificity NONE 04/16/2018 11:30 AM [facility] CDT - [facility] PUS SAB [id number] Specificity NONE 04/16/2018 11:30 AM [facility] PUS SAB DQB1 Specificity see below 04/16/2018 11:30 AM [facility] - [facility] PUS Comment: 2[8391] Format: Serologic equivalent/abbreviated specificity [Normalized Value] shown in decreasing o rder. Note: A serologic equivalent/abbreviated specifi city displayed multiple times could indicate different alleles. SAB DPB1 Specificity NONE 04/16/2018 11:30 AM CDT [facility] - [facility] Comment: ----ADDITIONAL INFORMATION---- Method: [employer] Performing Laboratory CLIA# [id number] Specimen Anatomical Collection Method Collection Time Receive d Time (Source) Location / / Volume Laterality Blood (Blood, 04/13/2018 10:52 04/13/2018 2:52 Venous) AM CDT PM CDT Resulting Agency Comment Mailed In Specimen Angelina Gaona APRN, C.N.P., M.S.N. LAB HLA ORDER JS Performing Organization Address City/[facility]/ZIP Code Phon e Number [facility] LABORATORIES - [address] [place] [address] [facility] HLA Class I SAB Antibody Screen (04/13/2018 10:52 AM CDT) [facility] Method Time Signature Class I SAB Positive Not Applicable 04/16/2018 [facility] Overall 11:26 AM LABORATORIES - Result CDT [facility] Class I SAB 79 04/16/2018 [facility] cPRA 11:26 AM LABORATORIES - CDT [facility] Comment: ----ADDITIONAL INFORMATION---- This PRA is a [facility] ue Typing Laboratory calculated PRA. PRA is based on the antigen frequency of the Tissue Typing patient a nd donor population. ??PRA reflects all antibodie s with a normalized value (MFI) above 300. SAB A Specificity see below 04/16/2018 11:26 A M CDT [facility] Comment: 32[5620], 25[3070], 23[2748], 31[2391], 24[2339], 24[2180], 30[1178], 30[823] Format: Serologic equivalent/abbreviated specificity [Normalized Value] shown in decreasing o rder. Note: A serologic equivalent/abbreviated specifi city displayed multiple times could indicate different alleles. SAB B Specificity see below 04/16/2018 11:26 A M CDT [facility] Comment: 51[9952], 51[6398], 49[5427], 52[5079], 77[4683], 59[4154], 38[4122], 63[4100], 75[3621], 78[3366], 53[3301], 57[3242], 58[3215], 57[3204], 27[1397], 13[1189], 37[1061], 44[1007], 71[962], 75[899], 44[852], 47[578], 13[4 67] Format: Serologic equivalent/abbreviated specificity [Normalized Value] shown in decreasing o rder. Note: A serologic equivalent/abbreviated specifi city displayed multiple times could indicate different alleles. SAB C Specificity NONE 04/16/2018 11:26 AM CD T [facility] Comment: ----ADDITIONAL INFORMATION---- Method: [employer] Performing Laboratory CLIA# [id number] Specimen Anatomical Collection Method Collection Time Receive d Time (Source) Location / / Volume Laterality Blood (Blood, 04/13/2018 10:52 04/13/2018 2:52 Venous) AM CDT PM CDT Resulting Agency Comment Mailed In Specimen Angelina Gaona APRN, C.N.P., M.S.N. 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
--- OUTSIDE RECORDS SUMMARY | 2022-05-25 13:30 | XMS_ITS | Encounter Summary ---
:[address] [facility] Address [address] [place] [address] Care Team Providers Name Role Phone Unavailable Primary Care Provider Unavailable Encounter Details Date Type Department Care Team Description 01/21/2018 Orders Only Division of Nephrology and Neymar Martínez Hypertension in [place], ., D.O. [place] [address] [facility] 200 [place] [id number] [phone] (Wo rk) Social History Tobacco Use Types [...] How often do you attend gnosticism or presybeterian 1 to 4 times per [...] An Nicholas APRN C.N.P., D.N.P., M.S.N. [address] [place] [address] 55 [phone] (Wo rk) 07/31/2022 Lab Laboratory Medicine Tony Rubalcava M. B., Sydnie, MDebra [address] [place] [address] [phone] (Wo rk) 07/31/2022 Lab Laboratory Medicine Tony Rubalcava M. B., Sydnie, Mukund [address] [place] [address] [phone] (Wo rk) 07/31/2022 Office Visit Transplant Tony Rubalcava M.B., Sydnie, Mukund [address] [place] [address] [phone] (Wo rk) 07/31/2022 Appointment Radiology Tony Rubalcava M.B., Sydnie, Mukund [address] [place] [address] 55 [phone] (Wo rk) 08/01/2022 Office Visit Transplant Tony Rubalcava M.B., Sydnie, Mukund [address] [place] [address] [phone] (Wo rk) 08/01/2022 Clinical Support Transplant Tony Rubalcava M.B., Sydnie, Shashi. 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
--- OUTSIDE RECORDS SUMMARY | 2022-05-25 13:30 | XMS_ITS | Encounter Summary ---
:[address] [facility] Address [address] [place] [address] Care Team Providers Name Role Phone Unavailable Primary Care Provider Unavailable Encounter Details Date Type Department Care Team Description 03/20/2018 Clinical Communication Division of Nephrology Deanne Fisher and Hypertension in , CPHT, C.N.P.[place], [place] M.S.N. 200 [facility] 200 [place] [phone] Social History Tobacco Use Types Packs/Day Years [...] How often do you attend advent or yazidi 1 to 4 times per [...] Notes Telephone Encounter - Deanne Fisher APRN, C.NDoc, M.S.N. 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 Kelly Ruano RN from the [facility] that Ms. Wray has just recently returned to [place] after a month long visit to [place]. Unfortunately, she shared with the dialysis staff that her fistula bruit and thrill has been diminishing, per the staff at the dialysis unit in [place]. Ms. Ruano was able to confirm this. Ms. Wray last required a fistulogram in September,. We will go ahead and plan for a fistulogram in [place] this week. documented in this encounter Plan of Treatment Upcoming Encounters Date Type Specialty Care Team Description 06/01/2022 Telemedicine Pharmacy An Nicholas APRN C.N.PDavi, Michelle.N.P., M.S.N. [address] [place] [address] 55 [phone] (Nicolas wen) 07/31/2022 Lab Laboratory Medicine Tony Rubalcava M. B., Sydnie, M.Whitney [address] [place] [address] 55 [phone] (Nicolas wen) 07/31/2022 Lab Laboratory Medicine Tony Rubalcava M. B., Mukund [place] [address] [place] [address] [phone] (Wo rk) 07/31/2022 Office Visit Transplant Tony Rubalcava M.B., Mukund [place] [address] [place] [address] [phone] (Wo rk) 07/31/2022 Appointment Radiology Tony Rubalcava M.B., [place]und [place] [address] [place] [address] 55 [phone] (Wo rk) 08/01/2022 Office Visit Transplant Tony Rubalcava M.B., Sydnie, Mukund [address] [place] [address] 55 [phone] (Wo rk) 08/01/2022 Clinical Support Transplant Tony Rubalcava M.B., Sydnie, Mukund [address] [place] [address] 55 [phone] (Wo rk) documented as of this encounter Results IR Dialysis Fistula Venous COLLAR TACKER Left (03/26/2018 11:23 AM CDT) Anatomical Region Laterality Modality Body, Vascular Interventional RST LOS Left X- Ray Angiography Specimen (Source) Anatomical Collection Method Collection Time Re ceived Time Location / / Volume Laterality 03/26/2018 12:13 PM CDT Impressions 03/26/2018 6:32 PM CDT IMPRESSION: Successful COLLAR TACKER of the swing point. NR Narrative 03/26/2018 6:32 PM CDT EXAM: IR DIALYSIS FISTULA VENOUS COLLAR TACKER LEFT CLINICAL HISTORY: Patient with malfuncti oning left arm brachial basilic fistula. TECHNIQUE: Left arm prepped and draped i n usual sterile fashion. Ultrasound guidance used to localize the outflow ve in. Micropuncture needle placed into the outflow vein. Micropuncture sheath advan arin over an 0.018 wire. Fistulogram performed from the brachial artery to th e right atrium. There is moderate stenosis at the swing point. The sheath was removed and access was obtained towards the inflow artery. The outflow v ein was punctured using ultrasound guidance. A micropuncture sheath was rose arin. A 5 Slovenian sheath was placed. The outflow vein was dilated with a 6 mm bal loon. Good result is seen. PREPROCEDURE: Patient seen, evaluated, h istory reviewed, [...] procedure. The total intra-procedural sedation time was: 47 m inutes. Estimated blood loss: none. Using ultrasound guidance to access vess el, patency was shown and after anesthetizing the skin with lidocaine th e outflow vein was punctured successfully. A permanent image was cregrant fernandez and stored. Procedure Note Shlomo Monreal M.D. - 03/26/2018Formatti ng of this note might be different from the original. EXAM: IR DIALYSIS FISTULA VENOUS COLLAR TACKER LEF T CLINICAL HISTORY: Patient with malfuncti oning left arm brachial basilic fistula. TECHNIQUE: Left arm prepped and draped i n usual sterile fashion. Ultrasound guidance used to localize the outflow ve in. Micropuncture needle placed into the outflow vein. Micropuncture sheath advan arin over an 0.018 wire. Fistulogram performed from the brachial artery to th e right atrium. There is moderate stenosis at the swing point. The sheath was removed and access was obtained towards the inflow artery. The outflow v ein was punctured using ultrasound guidance. A micropuncture sheath was rose arin. A 5 Slovenian sheath was placed. The outflow vein was dilated with a 6 mm bal loon. Good result is seen. PREPROCEDURE: Patient seen, evaluated, h istory reviewed, [...] procedure. The total intra-procedural sedation time was: 47 m inutes. Estimated blood loss: none. Using ultrasound guidance to access vess el, patency was shown and after anesthetizing the skin with lidocaine th e outflow vein was punctured successfully. A permanent image was crea rebecca and stored. IMPRESSION: Successful COLLAR TACKER of the swing point. NR Deanne Fisher APRN, C.N.P., M.S.N. 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
--- OUTSIDE RECORDS SUMMARY | 2022-05-25 13:30 | XMS_ITS | Encounter Summary ---
:1960 Author Organization [facility] Address [address] [place] [address] Care Team Providers Name Role Phone Unavailable Primary Care Provider Unavailable Encounter Details Date Type Department Care Team Description 03/26/2018 Hospital Encounter Department of Dennys Fisher APRN, C.N.PDavi, M.S.N. [address] [place] [address] Complication Dialysis Radiology in [place] Monreal M.D. [address] [place] [phone] Fistula Subsequent [place], [place] [address] [place] [address] Social History Tobacco Use Types [...] Sign Reading Time Taken Comments Blood Pressure 106/81 03/26/2018 11:45 AM CDT Pulse 59 03/26/2018 11:45 AM CDT Temperature - - Respiratory Rate 19 03/26/2018 11:45 AM CDT Oxygen Saturation 95% 03/26/2018 11:45 AM CDT Inhaled Oxygen Concentration - [...] 1 tablet by 0 06/13/2017 05/31/20 19 12-fyzyf-O-biot-zinc mouth daily. (DIALYVITE) 5-001-518-50 qd-rn-smw-mg tablet ciprofloxacin Take 1 tablet by 0 [...] Nicholas APRN, C.N.P., D.N.P., M.S.N. [address] [place] [address] [phone] (Nicolas wen) 07/31/2022 Lab Laboratory Medicine Tony Rubalcava M. B., Ch.B., M.D. [address] [place] [address] [phone] (Nicolas wen) 07/31/2022 Lab Laboratory Medicine Tony Rubalcava M. B., Ch.B., M.D. [address] [place] [address] [phone] (Wo behzad) 07/31/2022 Office Visit Transplant Tony Rubalcava M.B., Ch.B., M.D. [address] [place] [address] [phone] (Wo behzad) 07/31/2022 Appointment Radiology Tony Rubalcava M.B., Mukund Otoole [address] [place] [address] [phone] (Wo rk) 08/01/2022 Office Visit Transplant Tony Rubalcava M.B., Mukund [place] [address] [place] [address] [phone] (Wo rk) 08/01/2022 Clinical Support Transplant Tony Rubalcava M.B., Mukund Otoole [address] [place] [address] [phone] (Wo rk) documented as of this encounter Procedures Procedure Name Priority Date/Time Associated Comments Diagnosis IR DIALYSIS RAD - Routine 03/26/2018 11:23 Complication Results fo r this FISTULA VENOUS (most inpatients AM CDT Dialysis Fistula proce dure are in PHONE BANKER LEFT and all Subsequent the results outpatients) section. ADULT OXYGEN Routine 03/26/2018 9:43 THERAPY AM CDT documented in this encounter Results IR Dialysis Fistula Venous PHONE BANKER Left (03/26/2018 11:23 AM CDT) Anatomical Region Laterality Modality Body, Vascular Interventional RST LOS Left X- Ray Angiography Specimen (Source) Anatomical Collection Method Collection Time Re ceived Time Location / / Volume Laterality 03/26/2018 12:13 PM CDT Impressions 03/26/2018 6:32 PM CDT IMPRESSION: Successful PHONE BANKER of the swing point. NR Narrative 03/26/2018 6:32 PM CDT EXAM: IR DIALYSIS FISTULA VENOUS PHONE BANKER LEFT CLINICAL HISTORY: Patient with malfuncti oning [...] micropuncture sheath was rose arin. A 5 Wallisian sheath was placed. The outflow vein was [...] the original. EXAM: IR DIALYSIS FISTULA VENOUS PHONE BANKER LEF T CLINICAL HISTORY: Patient with malfuncti [...] micropuncture sheath was rose arin. A 5 Wallisian sheath was placed. The outflow vein was [...] was crea rebecca and stored. IMPRESSION: Successful PHONE BANKER of the swing point. NR Deanne Fisher APRN C.N.P., M.S.N. IMG IR PROCEDUR ES documented in this encounter Visit Diagnoses Diagnosis Complication Dialysis Fistula Subsequent documented in this encounter Administered Medications Inactive Administered Medications - up to 3 most recent administrations Medication Order MAR Action Action Date Dose Rate Site fentaNYL injection 25 mcg Given 03/26/2018 11:03 AM CDT 50 mcg (SUBLIMAZE) 25 mcg, intravenous, Every 2 min PRN, sedation, Starting on Sun03/26/18 at 0943, Intraprocedure (RAD), Administer over 1 minute immediately prior to the procedure. May repeat every 2 minutes to a maximum of 200 mcg. Do not give if respiratory rate is less than 8 breaths/minute Given 03/26/2018 10:48 AM CDT 25 mcg Given 03/26/2018 10:44 AM CDT 25 mcg flumazenil injection 0.2 mg (ROMAZICON) 0.2 mg, intravenous, Once as needed, rev ersal, Starting on Sun03/26/18 at 0943, For 1 dose, Intraprocedure (RAD), Administer once if patient has a RASS score of -4, -5 and has a respiratory rate less than 8 breaths/minute. iohexol 300 mg iodine/mL solution (OMNIP AQUE) Given 03/26/2018 11:21 AM 120 mL Code/trauma/sedation medication, Starting on CDT Sun03/26/18 at 1121 lidocaine-sodium bicarbonate 1%-8.4% inj ection Given 03/26/2018 11:21 AM CDT 3 mL infiltration, Code/trauma/sedation medication, Starting on Sun03/26/18 at 1121 midazolam (PF) injection 0.5 mg (VERSED) Given 03/26/2018 11:03 AM CDT 0.5 mg 0.5 mg, intravenous, Every 2 min PRN, sedation, Starting on Sun03/26/18 at 0943, Intraprocedure (RAD), If RASS greater than -3, give additional dose(s) of 0.5 mg IV every 2 minute for a maximum of 5 mg. Do not give if respiratory rate is less than 8 breaths/minute Given 03/26/2018 10:48 AM CDT 0.5 mg Given 03/26/2018 10:44 AM CDT 0.5 mg NaCl 0.9% infusion New Bag 03/26/2018 10:00 AM CDT 20 mL/hr 20 mL/hr 20 mL/hr, intravenous, Once as needed, to keep vein open, Starting on Sun03/26/18 at 0943, For 1 dose, Intraprocedure (RAD) naloxone injection 0.2 mg (NARCAN) 0.2 mg, intravenous, Once as needed, res piratory depression, Starting on Sun03/26/18 at 0943, For 1 dose, Intraprocedure (RAD ), Administer once if patient has a RASS score of -4, -5 and has a respiratory rate less than 8 breaths/minute. ondansetron (PF) injection 4 mg (ZOFRAN) 4 mg, intravenous, Every 6 hours PRN, na usea, vomiting, Starting on Sun03/26/18 at 0943, Intraprocedure (RAD), Administer pre/intra/post procedure documented in this encounter Active and Recently Administered Medications Times are shown in CDT. PRN Medication Order 03/24/2018 03/25/2018 03/26/2018 fentaNYL injection 25 mcg (SUBLIMAZE) 1013 (Given - Provider: Elvia Collins R.N.)1017 (Given - Provider: Elvia Collins R.N.)1022 (Given - Provider: Elvia Collins R.N.)1044 (Given - Provider: Elvia Collins R.N.)1048 (Given - Provider: Elvia Collins R.N.) 25 mcg, intravenous, Every 2 min PRN, se dation, Starting Sun03/26/18 at 0943, Intraprocedure (RAD), Administer over 1 minute immediately prior to the procedure. May repeat every 2 minutes to a maximum of 1103 (Given - Provider: Elvia Collins R.N.) 200 mcg. Do not give if respiratory rate is less than 8 breaths /minute flumazenil injection 0.2 mg (ROMAZICON) 0.2 mg, intravenous, Once as needed, rev ersal, Starting Sun03/26/18 at 0943, For 1 dose, Intraprocedure (RAD), Administer once if patient has a RASS score of -4, -5 and has a respiratory rate less than 8 breaths/minute. iohexol 300 mg iodine/mL solution (OMNIPAQUE) (COMPLETED) 1121 (Given - Provider: Shlomo Monreal M.D.) Code/trauma/sedation medication, Starting on Sun03/26/18 at 1121 lidocaine-sodium bicarbonate 1%-8.4% injection (COMPLETED) 1121 (Given - Provider: Shlomo Mnoreal M.D.) infiltration, Code/trauma/sedation medication, Starting Sun at 1121 midazolam (PF) injection 0.5 mg (VERSED) 1012 (Given - Provider: Elvia Collins R.N.)1017 (Given - Provider: Elvia Collins R.N.)1022 (Given - Provider: Elvia Collins R.N.)1044 (Given - Provider: Elvia M Collins, R.N.)1048 (Given - Provider: Ann GuerreroNDavi) 0.5 mg, intravenous, Every 2 min PRN, se dation, Starting 03/26/18 at 0943, Intraprocedure (RAD), If RASS greater than -3, give additional dose(s) of 0.5 mg IV every 2 minute for a maximum of 5 mg. Do 1103 (Given - Provider: Elvia Collins R.N.) not give if respiratory rate is less than 8 breaths/minute NaCl 0.9% infusion (COMPLETED) 1 000 (New Bag - Provider: Ann GuerreroNDavi)1149 (Stopped - Provider: Elvia Collins R.N.) 20 mL/hr, intravenous, at 20 mL/hr, Once as needed, to keep vein open, Starting 03/26/18 at 0943, For 1 dose, Intraprocedure (RAD) naloxone injection 0.2 mg (NARCAN) 0.2 mg, intravenous, Once as needed, res piratory depression, Starting 03/26/18 at 0943, For 1 dose, Intraprocedure (RAD), Administer once if patient has a RASS score of -4, -5 and has a respiratory rate less than 8 breaths/minute. 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
--- OUTSIDE RECORDS SUMMARY | 2022-05-25 13:30 | XMS_ITS | Encounter Summary ---
:1960 Author Organization [facility] Address [address] [place] [address] Care Team Providers Name Role Phone Unavailable Primary Care Provider Unavailable Reason for Visit Reason Onset Date Comments ? on Medication RCA prescribed 01/23/2018 Encounter Details Date Type Department Care Team Description 01/23/2018 Clinical Division of [place], ? on Medication RCA Communication Nephrology and Steve Yap Jr., prescribed Hypertension in [place], [place] [address] [facility] [address] [place] [phone] Social History Tobacco Use Types Packs/Day Years [...] How often do you attend voodoo or mu-ism 1 to 4 times per [...] Encounter - Steve Martínez Jr., D.O. - 01/23/2018 5:07 PM CDT Called Pharmacy and asked them to please fill the Levaquin. They agreed. Telephone Encounter - Evelin Soto - 01/23/2018 10:41 AM CDT other documented in this encounter Plan of Treatment Upcoming Encounters Date Type Specialty Care Team Description 06/01/2022 Telemedicine Pharmacy An Nicholas APRN C.N.P., D.N.P., M.S.N. [address] [place] [address] [phone] (Nicolas rk) 07/31/2022 Lab Laboratory Medicine Tony Rubalcava M. B., Ch.B., M.D. [address] [place] [address] [phone] (Nicolas wen) 07/31/2022 Lab Laboratory Medicine Tony Rubalcava M. B., Ch.B., M.D. [address] [place] [address] [phone] (Wo behzad) 07/31/2022 Office Visit Transplant Tony Rubalcava M.B., Sydnie, Mukund [address] [place] [address] [phone] (Wo rk) 07/31/2022 Appointment Radiology Tony Rubalcava M.B., Sydnie, Mukund [address] [place] [address] [phone] (Wo rk) 08/01/2022 Office Visit Transplant Tony Rubalcava M.B., Sydnie, Mukund [address] [place] [address] [phone] (Wo rk) 08/01/2022 Clinical Support Transplant Tony Rubalcava M.B., Sydnie, Mukund [address] [place] [address] [phone] (Wo rk) documented as of this encounter Visit Diagnoses Not on filedocumented in this encounter Additional Health Concerns Assessment Noted Time PHQ-9 Depression Total Score: 3 09/13/2017 7:47 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
--- OUTSIDE RECORDS SUMMARY | 2022-05-25 13:30 | XMS_ITS | Encounter Summary ---
:1960 Author Organization [facility] Address [address] [place] [address] Care Team Providers Name Role Phone Unavailable Primary Care Provider Unavailable Encounter Details Date Type Department Care Team Description 05/14/2018 Hospital Encounter Outpatient Procedure Kristopher Spear, Center in [place] [address] [place] [phone] (Wo rk) Social History Tobacco Use Types [...] How often do you attend anabaptist or mandaeism 1 to 4 times per [...] Sign Reading Time Taken Comments Blood Pressure 111/63 05/14/2018 3:30 PM CDT Pulse 62 05/14/2018 3:39 PM CDT Temperature 36.5 ??C (97.7 ??F) 05/14/2018 2:59 PM CDT Respiratory Rate 15 05/14/2018 3:39 PM CDT Oxygen Saturation 97% 05/14/2018 3:39 PM CDT Inhaled Oxygen Concentration - - Weight - - Height - - Body Mass Index - - documented in this encounter Discharge Instructions AttachmentsThe following attachments cannot be sent through Care Everywhere.Care Following a Cystoscopy (Spanish)documented in this encounter Medications at Time of [...] 1 tablet by 0 06/13/2017 05/31/20 19 17-uavjt-I-biot-zinc mouth daily. (DIALYVITE) 8-890-741-50 oj-mr-bis-mg tablet ciprofloxacin (CIPRO) Take 1 tablet by [...] Implant Name Type Inv. Item Serial No. Conveyor Tender Concrete Mixing Plant Lot No. LRB No. Used Action STENT INLAY 8FR X 20CM - [id number] Ureteral Stent C.R.Bard 1 Explanted STNT URET INL [id number] - [id number] Ureteral Stent STNT URET INL 8FX20 C.R.Bard [id number] Right 1 Implanted Teresa Antonio M.D. documented in this encounter Plan of Treatment Upcoming Encounters Date Type Specialty Care Team Description 06/01/2022 Telemedicine Pharmacy An Nicholas APRN, C.NDaviPDavi, WhitneyN.P., M.S.N. [address] [place] [address] [phone] (Wo rk) 07/31/2022 Lab Laboratory Medicine Tony Rubalcava M. B., Sydnie, MDebra [address] [place] [address] [phone] (Wo rk) 07/31/2022 Lab Laboratory Medicine Tony Rubalcava M. B., Sydnie, Mukund [address] [place] [address] [phone] (Wo rk) 07/31/2022 Office Visit Transplant Tony Rubalcava M.B., Sydnie, MDebra [address] [place] [address] [phone] (Wo rk) 07/31/2022 Appointment Radiology Tony Rubalcava M.B., Sydnie, MDebra [address] [place] [address] [phone] (Wo rk) 08/01/2022 Office Visit Transplant Tony Rubalcava M.B., Sydnie, MDebra [address] [place] [address] [phone] (Wo rk) 08/01/2022 Clinical Support Transplant Tony Rubalcava M.B., Sydnie, MDebra [address] [place] [address] [phone] (Wo rk) documented as of this encounter Procedures Procedure Name Priority Date/Time Associated Comments Diagnosis FL FLUORO LESS THAN 1 RAD - Routine 05/14/2018 2:58 Re sults for HOUR (most inpatients PM CDT this proced ure and all are in the outpatients) results section. CYSTOURETHROSCOPY 05/14/2018 1:39 Obstruction PM CDT Ureter Special Needs Listing: GLADYS [place] [id number]. RETROGRADE PYELOGRAM 05/14/2018 1:39 PM CDT Obstructio n Ureter Special Needs Listing: GL[place]SY [place] [id number]. EXCHANGE URETERAL STENT 05/14/2018 1:39 PM CDT Obstruc tion Ureter Special Needs Listing: GLADYS [place] [id number]. documented in this encounter Results FL Fluoro Less Than 1 Hour (05/14/2018 2:58 PM CDT) Specimen (Source) Anatomical Location Collection Method / Collectio n Time Received Time / Laterality Volume Narrative [id number] - 05/14/2018 2:59 PM CDT This exam does not require a radiologist review or interpretation. Please refer to the patient? s medical record on this date for clinical details. Daniel WESTFALL FLUOROSCOPY PROCEDURES Performing Organization Address City/State/ZIP Code Phon e Number [id number] NA documented in this encounter Visit Diagnoses Diagnosis Obstruction Ureter - Primary documented in this encounter Admitting Diagnoses Diagnosis Obstruction Ureter documented in this encounter Administered Medications Inactive Administered Medications - up to 3 most recent administrations Medication Order MAR Action Action Date Dose Rate Site lactated ringers New Bag 05/14/2018 1:53 PM CDT 20 mL/hr, intravenous, Continuous, Starting on Sun05/14/18 at 1400 sodium chloride injection 10 mL 10 mL, intravenous, As needed, line care , Starting on Sun05/14/18 at 1309, Pre-Op, Peripheral Intravenous Catheter and Rapid Infusion Cat heter, prior to blood sampling, post blood transfusion or post blood samplin g sodium chloride injection 3 mL 3 mL, intravenous, As needed, line care, Starting on e 05/14/18 at 1309, Pre-Op, Prior to and [...] 1345 (Due)1408 (Given - Provider: Chiara Schmitz RDaviN. - Comment: urethra) 1 application, urethral, Once, Sun05/14/18 at 1345, For 1 dose, Intra-Op sodium chloride injection 3 mL 3 mL, intravenous, Every 12 hours schedu led, First dose on Sun05/14/18 at 2100, Pre-Op, Peripheral Intravenous Catheter and Rapid Infusion Catheter, when no infusion to maintain patency sodium chloride injection 3 mL 3 mL, intravenous, Every 12 hours schedu led, First dose on 05/14/18 at 2100, Pre-Op, Peripheral Intravenous Catheter and Rapid Infusion Catheter, when no infusion to maintain patency Continuous Medication Order 05/12/2018 05/13/2018 05/14/2018 lactated ringers 1353 (New Bag - Provider: Bree Persaud APRN, FLORENCIO)1540 (Stopped - Provider: Rupali Mckee R.NDavi) 20 mL/hr, intravenous, at 20 mL/hr, Continuous, Starting 04/21 at 1400 PRN Medication Order 05/12/2018 05/13/2018 05/14/2018 iohexol 300 mg iodine/mL solution (OMNIPAQUE) (CANCELED) 1428 (Given - Provider: Teresa E Antonio, M.D. 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
--- OUTSIDE RECORDS SUMMARY | 2022-05-25 13:30 | XMS_ITS | Encounter Summary ---
:[address] [facility] Address [address] [place] [address] Care Team Providers Name Role Phone Unavailable Primary Care Provider Unavailable Reason for Visit Reason Onset Date Comments Automatic Appointment Reminders 03/19/2018 Patient Request Encounter Details Date Type Department Care Team Description 03/19/2018 Clinical Department of Heriberto Dyer Communication Dermatology in [place] Bahena M.D. Reminders (Patient [place] [address] [facility] Request) [address] [place] [phone] Social History Tobacco Use Types Packs/Day Years [...] How often do you attend bahai or mormon 1 to 4 times per [...] this encounter Miscellaneous Notes Telephone Encounter - RyanAby Flora - 03/19/2018 12:22 PM CDT Patient submitted an Automated Appointment Reminder to reschedule appointments. Please contact the patient to determine which appointments to update and reschedule as appropriate. Thank you. documented in this encounter Plan of Treatment Upcoming Encounters Date Type Specialty Care Team Description 06/01/2022 Telemedicine Pharmacy An Nicholas APRN C.N.P., D.N.P., M.S.N. [address] [place] [address] [phone] (Nicolas wen) 07/31/2022 Lab Laboratory Medicine Tony Rubalcava M. B., Ch.B., M.Michelle. [address] [place] [address] [phone] (Wo behzad) 07/31/2022 Lab Laboratory Medicine Tony Rubalcava M. B., ChDaviB., MElvia. [address] [place] [address] [phone] (Wo behzad) 07/31/2022 Office Visit Transplant Tony Rubalcava M.B., ChBurke, MElvia. [address] [place] [address] [phone] (Nicolas wen) 07/31/2022 Appointment Radiology Tony Rubalcava M.B., Mukund [place] [address] [place] [address] [phone] (Wo rk) 08/01/2022 Office Visit Transplant Tony Rubalcava M.B., Mukund [place] [address] [place] [address] [phone] (Wo rk) 08/01/2022 Clinical Support Transplant Tony Rubalcava M.B., Sydnie, Mukund [address] [place] [address] [phone] (Wo rk) documented as of this encounter Visit Diagnoses Not on filedocumented in this encounter Additional Health Concerns Assessment Noted Time PHQ-9 Depression Total Score: 3 09/13/2017 7:47 AM 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
--- OUTSIDE RECORDS SUMMARY | 2022-05-25 13:30 | XMS_ITS | Encounter Summary ---
:1960 Author Organization [facility] Address [address] [place] [address] Care Team Providers Name Role Phone Unavailable Primary Care Provider Unavailable Encounter Details Date Type Department Care Team Description 05/10/2018 Hospital Encounter Department of Gaudencio Lance Obs truction [facility] Laboratory Medicine Mukund Domínguez and Pathology, [facility] in [place], [place] [address] [place] [address] Social History Tobacco Use Types Packs/Day Years [...] How often do you attend catholic or mormonism 1 to 4 times per [...] 1 tablet by 0 06/13/2017 05/31/20 19 25-qqzpx-Z-biot-zinc mouth daily. (DIALYVITE) [id number] xr-bi-xqz-mg tablet gabapentin Take 2 capsules by 0 [...] Nicholas APRN C.N.P., D.N.P., M.S.N. [address] [place] [address] 55 [phone] (Wo rk) 07/31/2022 Lab Laboratory Medicine Tony Rubalcava M. B., ChDaviBDavi, MDaviD. [address] [place] [address] [phone] (Nicolas wen) 07/31/2022 Lab Laboratory Medicine Tony Rubalcava M. B., ChBurke, MElvia. [address] [place] [address] [phone] (Wo rk) 07/31/2022 Office Visit Transplant Tony Rubalcava M.B., ChDaviBDavi, M.D. [address] [place] [address] [phone] (Nicolas wen) 07/31/2022 Appointment Radiology Tony Rubalcava M.B., ChBurke, MElvia. [address] [place] [address] 55 [phone] (Wo rk) 08/01/2022 Office Visit Transplant Tony Rubalcava M.B., Mukund Otoole [address] [place] [address] [phone] (Nicolas wen) 08/01/2022 Clinical Support Transplant Tony Rubalcava M.B., Mukund Otoole [address] [place] [address] [phone] (Nicolas wen) documented as of this encounter Procedures Procedure Name Priority Date/Time Associated Diagnosis Comme nts HEMOGLOBIN A1C, B Routine 05/10/2018 11:01 AM Obstruction Uret er Results for this CDT procedure are i n the results section. documented in this encounter Results (ABNORMAL) Hemoglobin A1c (05/10/2018 11:01 AM CDT) [facility] gist Method Time Signature Hemoglobin A1c, 5.8 (H) 4.0 - 5.6 05/10/2018 [facility] B % 11:45 AM CDT LABORATORIES - [facility] Comment: Hemoglobin A1c values of 5.7-6.4 percent [...] Address City/State/ZIP Code Phon e Number [facility] - [address] [place], [place] [address] 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
--- OUTSIDE RECORDS SUMMARY | 2022-05-25 13:30 | XMS_ITS | Encounter Summary ---
:1960 Author Organization [facility] Address [address] [place] [address] Care Team Providers Name Role Phone Unavailable Primary Care Provider Unavailable Encounter Details Date Type Department Care Team Description 03/13/2018 Clinical Communication Ata Hong, Center for Angelina J, Transplantation and Tete WHITE, Clinical Regeneration in [place], [place] [address] [place] [address] [address] [place] [address] [phone] Social History Tobacco Use Types Packs/Day Years [...] How often do you attend restorationist or jew 1 to 4 times per [...] An Nicholas APRN C.N.P., D.N.P., M.S.N. [address] [place] [address] 55 [phone] (Wo rk) 07/31/2022 Lab Laboratory Medicine Tony Rubalcava M. B., Sydnie, MDebra [address] [place] [address] [phone] (Wo rk) 07/31/2022 Lab Laboratory Medicine Tony Rubalcava M. B., Sydnie, Mukund [address] [place] [address] [phone] (Wo rk) 07/31/2022 Office Visit Transplant Tony Rubalcava M.B., Sydnie, MDebra [address] [place] [address] 55 [phone] (Wo rk) 07/31/2022 Appointment Radiology Tony Rubalcava M.B., Sydnie, MDebra [address] [place] [address] 55 [phone] (Wo rk) 08/01/2022 Office Visit Transplant Tony Rubalcava M.B., Ch.Mukund Richards [address] [place], [place] [phone] (Wo rk) 08/01/2022 Clinical Support Transplant Tony Rubalcava M.B., Mukund Otoole 200 [place], [place] [phone] (Wo rk) documented as of this encounter Results HLA Class II SAB Antibody Screen (04/13/2018 10:52 AM CDT) [facility] Method Time Signature Class II SAB Positive Not Applicable 04/16/2018 [facility] Overall 11:30 AM LABORATORIES - Result CDT [facility] Class II SAB 37 04/16/2018 [facility] cPRA 11:30 AM LABORATORIES - CDT [facility] Comment: ----ADDITIONAL INFORMATION---- This PRA is a [facility] ue Typing Laboratory calculated PRA. PRA is based on the antigen frequency of the Tissue Typing patient a nd donor population. ??PRA reflects all antibodie s with a normalized value (MFI) above 300. SAB DRB1 Specificity NONE 04/16/2018 11:30 AM [facility] CDT - [facility] PUS SAB [id number] Specificity NONE 04/16/2018 11:30 AM [facility] - [facility] PUS SAB DQB1 Specificity see below 04/16/2018 11:30 AM [facility] CDT - [facility] PUS Comment: 2[4213] Format: Serologic equivalent/abbreviated specificity [Normalized Value] shown in decreasing o rder. Note: A serologic equivalent/abbreviated specifi city displayed multiple times could indicate different alleles. SAB DPB1 Specificity NONE 04/16/2018 11:30 AM CDT [facility] - [facility] Comment: ----ADDITIONAL INFORMATION---- Method: [facility] Performing Laboratory CLIA# [id number] Specimen Anatomical Collection Method Collection Time Receive d Time (Source) Location / / Volume Laterality Blood (Blood, 04/13/2018 10:52 04/13/2018 2:52 Venous) AM CDT PM CDT Resulting Agency Comment Mailed In Specimen Angelina Gaona APRN, C.N.P., M.S.N. LAB HLA ORDER JS Performing Organization Address City/State/ZIP Code Phon e Number [facility] - [address] [place], [place] [address] [facility] HLA Class I SAB Antibody Screen (04/13/2018 10:52 AM CDT) [facility] Method Time Signature Class I SAB Positive Not Applicable 04/16/2018 [facility] Overall 11:26 AM LABORATORIES - Result CDT [facility] Class I SAB 79 04/16/2018 [facility] cPRA 11:26 AM LABORATORIES - CDT [facility] Comment: ----ADDITIONAL INFORMATION---- This PRA is a [facility] ue Typing Laboratory calculated PRA. PRA is based on the antigen frequency of the Tissue Typing patient a nd donor population. ??PRA reflects all antibodie s with a normalized value (MFI) above 300. SAB A Specificity see below 04/16/2018 11:26 A M CDT [facility] Comment: 32[5620], 25[3070], 23[2748], 31[2391], 24[2339], 24[2180], 30[1178], 30[823] Format: Serologic equivalent/abbreviated specificity [Normalized Value] shown in decreasing o rder. Note: A serologic equivalent/abbreviated specifi city displayed multiple times could indicate different alleles. SAB B Specificity see below 04/16/2018 11:26 A M CDT [facility] Comment: 51[9952], 51[6398], 49[5427], 52[5079], 77[4683], 59[4154], 38[4122], 63[4100], 75[3621], 78[3366], 53[3301], 57[3242], 58[3215], 57[3204], 27[1397], 13[1189], 37[1061], 44[1007], 71[962], 75[899], 44[852], 47[578], 13[4 67] Format: Serologic equivalent/abbreviated specificity [Normalized Value] shown in decreasing o rder. Note: A serologic equivalent/abbreviated specifi city displayed multiple times could indicate different alleles. SAB C Specificity NONE 04/16/2018 11:26 AM CD T [facility] Comment: ----ADDITIONAL INFORMATION---- Method: [facility]inex Performing Laboratory CLIA# [id number] Specimen Anatomical Collection Method Collection Time Receive d Time (Source) Location / / Volume Laterality Blood (Blood, 04/13/2018 10:52 04/13/2018 2:52 Venous) AM CDT PM CDT Resulting Agency Comment Mailed In Specimen Angelina Gaona APRN C.N.P., M.S.N. 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
--- OUTSIDE RECORDS SUMMARY | 2022-05-25 13:30 | XMS_ITS | Encounter Summary ---
:1960 Author Organization [facility] Address 200 [place] [address] Care Team Providers Name Role Phone Unavailable Primary Care Provider Unavailable Reason for Visit Outpatient (Routine) - Closed Specialty Diagnoses / Referred By Contact Referred To Contact Procedures Physical Medicine and Diagnoses Pain Thumb Left Deanne Fisher, [facility] Tete WHITE, M.S.N. 200 [place] [address] Referral ID Status Reason Start Date Expiration Date Visits Requ ested Visits Authorized [id number] Closed 12/31/2017 06/29/2018 1 1 Encounter Details Date Type Department Care Team Description 01/21/2018 Comprehensive Visit Department of Raffi Hernandez Finger Left (Primary Dx); Dermatology in Herbert Joshi M.D., M.S. [place] [id number] [place] [address] Social History Tobacco Use Types Packs/Day Years [...] How often do you attend mormonism or restorationism 1 to 4 times per [...] documented as of this encounter Consult Notes Anthony Hernandez M.D., M.S. - 01/21/2018 3:40 PM CDT SUBJECTIVE CHIEF COMPLAINT / REASON FOR VISIT Left finger pain HISTORY OF PRESENT ILLNESS Shabnam Wray is a very pleasant 57 y.o. female with end-stage renal disease on dialysis presenting for pain in her left finger around the fingernail of the left thumb. She notes it became tender approximately 4 weeks ago after she had a manicure. She notes that the area was red and throbbing with pain. Few days ago started soaking it in dilute hydrogen peroxide and yellow pus had drained from the area. Since then she endorses less pain however it is mva still operator to palpation. She notes less swelling and less redness. She endorses a prior history of pincer nail deformity of bilateral thumbs. She feels like it has gotten worse over the years. Denies any fevers chills. REVIEW OF SYSTEMS Negative except as noted in HPI PAST MEDICAL HISTORY Reviewed. FAMILY HISTORY Reviewed. Allergies Allergen Reactions ??? Epoetin Rolando GI intolerance ERYTHROPOIETIN- vomiting ??? Latex Other (see comments) Eczema OBJECTIVE PHYSICAL EXAM General: Well appearing, well developed, no acute distress. Eyes: No scleral injection or icterus. No eyelid abnormalities. Psych: Normal mood and affect. Skin: Limited skin exam of the bilateral hands performed per patient request. Involving the bilateral thumbnails is pincer nail deformity that is worse on the left than the right. Involving the left lateral periungual area is some erythema and tenderness to palpation. There is no fluctuance or abscess. ASSESSMENT / PLAN # Likely resolving acute paronychia of left thumb # Pincer nail deformity On clinical examination the patient does not have any abscesses or mari pus. It is likely that she has resolving acute paronychia given that she has had drainage of pus few days ago from the area withimprovement in her symptoms. She does appear to still have some inflammation. Currently for treatment recommended dilute ascetic acid soaks 3 times daily for 15 min until symptoms resolve. In addition prescribed mupirocin ointment to be used 3 times daily to the affected area for the next 2 weeks. This will help with the acute inflammation. However this will not resolve the pincer nail deformity which can be contributing to some of her pain and predisposing her to paronychia. I will have her follow up in 6 weeks and at that point if her inflammation is resolved we will refer her to procedure Clinicfor lateral matrixectomy. If her symptoms do not respond to above treatment or worsen recommend immediate follow up for further evaluation. PATIENT EDUCATION Ready to learn, no apparent learning barriers were identified; learning preferences include listening. Explained diagnosis and treatment plan; patient/guardian of patient expressed understanding of thecontent. Associated attestation - Xi Dyer M.D. - 01/21/2018 5:43 PM CDT I saw and evaluated the patient, participating in the iglesias elements of the service. I discussed the findings, assessment and plan with the resident and agree with resident???s findings and plan as documented in the resident's note. I was immediately available for the entirety of the procedure(s) and present for the iglesias and critical portions. documented in this encounter Plan of Treatment Upcoming Encounters Date Type Specialty Care Team Description 06/01/2022 Telemedicine Pharmacy An Nicholas APRN, C.N.P., D.N.P., M.S.N. [address] [place] [address] [phone] (Nicolas rk) 07/31/2022 Lab Laboratory Medicine Tony Rubalcava M. B., ChBurke, MDebra [address] [place] [address] [phone] (Nicolas rk) 07/31/2022 Lab Laboratory Medicine Tony Rubalcava M. B., ChBurke, MDebra [address] [place] [address] [phone] (Nicolas wen) 07/31/2022 Office Visit Transplant Tony Rubalcava M.B., ChBurke, MDebra [address] [place] [address] 55 [phone] (Nicolas wen) 07/31/2022 Appointment Radiology Tony Rubalcava M.B., ChBurke, MDebra [address] [place] [address] 55 [phone] (Nicolas wen) 08/01/2022 Office Visit Transplant Tony Rubalcava M.B., ChBurke, MDaviDDavi [address] [place] [address] 55 [phone] (Nicolas wen) 08/01/2022 Clinical Support Transplant Tony Rubalcava M.B., ChBurke, MDaviDDavi [address] [place] [address] 55 [phone] (Nicolas wen) documented as of this encounter Visit Diagnoses Diagnosis Paronychia Finger Left - Primary Dystrophic Nail documented in this encounter Additional Health Concerns Assessment Noted Time PHQ-9 Depression Total Score: 3 09/13/2017 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
--- OUTSIDE RECORDS SUMMARY | 2022-05-25 13:30 | XMS_ITS | Encounter Summary ---
:1960 Author Organization [facility] Address [address] [place] [address] Care Team Providers Name Role Phone Unavailable Primary Care Provider Unavailable Encounter Details Date Type Department Care Team Description 01/21/2018 Clinical Communication Division of Nephrology Steve Martínez and Hypertension in Fracisco Garcia D.O. [place], [place] [address] [place] [address] 200 [place] [address] [phone] Social History Tobacco Use Types Packs/Day Years [...] How often do you attend buddhist or latter day 1 to 4 times [...] Encounter - Steve Martínez Jr., D.O. - 01/21/2018 9:07 AM CDT She has Bronchitis. I have RX for Levaquin 500 mg two tonight, then 1 on mwf. documented in this encounter Plan of Treatment Upcoming Encounters Date Type Specialty Care Team Description 06/01/2022 Telemedicine Pharmacy An Nicholas APRN, C.N.P., D.N.P., M.S.N. [address] [place] [address] 55 [phone] (Nicolas wen) 07/31/2022 Lab Laboratory Medicine Tony Rubalcava M. B., ChBurke, MElvia. [address] [place] [address] [phone] (Nicolas wen) 07/31/2022 Lab Laboratory Medicine Tony Rubalcava M. B., ChDaviBDavi, MElvia. [address] [place] [address] 55 [phone] (Nicolas wen) 07/31/2022 Office Visit Transplant Tony Rubalcava M.B., ChBurke, MElvia. [address] [place] [address] 55 [phone] (Nicolas wen) 07/31/2022 Appointment Radiology Tony Rubalcava M.B., Sydnie, Mukund [address] [place] [address] 55 [phone] (Wo rk) 08/01/2022 Office Visit Transplant Tony Rubalcava M.B., Mukund Otoole [address] [place] [address] 55 [phone] (Wo rk) 08/01/2022 Clinical Support Transplant Tony Rubalcava M.B., Sydnie, Mukund [address] [place] [address] 55 [phone] (Wo rk) documented as of this encounter Visit Diagnoses Not on filedocumented in this encounter Additional Health Concerns Assessment Noted Time PHQ-9 Depression Total Score: 3 09/13/2017 7:47 AM 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
--- OUTSIDE RECORDS SUMMARY | 2022-05-25 13:30 | XMS_ITS | Encounter Summary ---
:1960 Author Organization [facility] Address [address] [place] [address] Care Team Providers Name Role Phone Unavailable Primary Care Provider Unavailable Reason for Visit Reason Comments Pre Anesthesia Medical Evaluation Transplant (Routine) - Closed Specialty Diagnoses / Procedures Referred By Contact Refer red To Contact Transplant Surgery / Diagnoses [facility]struction [facility] 200 [place] [address] Referral ID Status Reason Start Date Expiration Date Visits Requ ested Visits Authorized [id number] Closed 04/03/2018 04/03/2019 1 1 Encounter Details Date Type Department Care Team Description 04/09/2018 Office Visit Ata Kayor, [employer] plication Kidney Transplant (HCC) (Primary Dx); Center for C, M.D. Obstruction Ureter; Transplantation and [address] [place] [address] Transplant Renal (HCC) Clinical Regeneration in [place], [place] [address] [place] [address] [place] [address] (Work) [phone] Social History Tobacco Use Types Packs/Day Years [...] How often do you attend yarsanism or buddhist 1 to 4 times per [...] Pressure - - Pulse - - Temperature 36 ??C (96.8 ??F) 04/09/2018 1:11 PM CDT Respiratory Rate - - Oxygen Saturation - - Inhaled Oxygen Concentration - - Weight 94.9 kg (209 lb 3.5 oz) 04/09/2018 1:11 PM CDT Height 165 cm (5' 4.96) 04/09/2018 1:11 PM CDT Body Mass Index 34.86 04/09/2018 1:11 PM CDT documented in this encounter Consult Notes Juvenal Plummer M.D. 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 Wray's status prior to undergoing a scheduled ureteral stent replacement. I note that she has had a failed renal allograft for which she continues to make urine but hasundergone hemodialysis over the last year. She continues to take low-dose immunosuppression with mycophenolate, tacrolimus, and prednisone. She has had this procedure before without difficulty. She hasnot had active urinary tract infection. She generally feels quite well. She just recently had a revision of her dialysis access in the left upper extremity. CURRENT MEDICATIONS Current Outpatient Prescriptions Medication Sig Dispense Refill ??? amLODIPine (for_NORVASC) 10 mg tablet Take 1 tablet by mouth daily. ??? B complex 25-aviun-I-biot-zinc (DIALYVITE) [id number] ax-sf-zxx-mg tablet Take 1 tablet by mouth daily. ??? ciprofloxacin (for_CIPRO) 500 mg tablet Take 1 tablet by mouth as directed. ??? gabapentin (for_NEURONTIN) 100 mg capsule Take 2 capsules by mouth 2 (two) times a day. ??? hydrocortisone (for_HYTONE) 2.5 % cream Apply 1 application topically daily as needed. ??? lidocaine-prilocaine (for_EMLA) 2.5-2.5 % cream Apply 1 application topically as directed. ??? losartan (for_COZAAR) 50 mg tablet Take 1 tablet by mouth daily. ??? mycophenolate (CELLCEPT) 250 mg capsule Take 2 capsules by mouth 2 (two) times a day. ??? nebivolol (BYSTOLIC) 10 mg tablet Take 1 tablet by mouth daily. ??? predniSONE (for_DELTASONE) 5 mg tablet Take 1 tablet by mouth daily. ??? rosuvastatin (for_CRESTOR) 5 mg tablet Take 1 tablet by mouth daily. ??? tacrolimus (for_PROGRAF) 1 mg capsule Take 2 capsules by mouth 2 (two) times a day. ??? mupirocin (BACTROBAN) 2 % ointment Apply 1 application topically 3 (three) times a day. For 14 days (Patient not taking: Reported on 04/09/2018 ) 22 g 1 No current facility-administered medications for this visit. ALLERGIES/CONTRAINDICATIONS As noted. REVIEW OF SYSTEMS Central nervous system: Negative for syncope or focal deficits. Blood pressures tend to go low afterdialysis. Cardiorespiratory: She has not had asthma, dyspnea, or wheezing. Cardiac symptoms have been minimal.She has not had arrhythmias or chest pain. Gastrointestinal : Her appetite has been good. Weight has been stable. Genitourinary : She continues to make urine. She has not had significant hematuria or stone disease.Infections have not been an ongoing problem. Musculoskeletal: Negative for gout. OBJECTIVE PHYSICAL EXAMINATION General: She appears alert and well. Vital signs: Blood pressures by the BpTRU 99/64 with a pulse of 72. To my examination, 102/60. Eyes: Her extraocular movements are full. Chest: Clear. She does have an audible bruit over the left carotid. She has been asymptomatic. The chest is clear. She does have a soft systolic ejection murmur with a different character over the leftsternal border. Abdomen: Soft, nontender. There is no hepatosplenomegaly. I can detect no edema at this time. DIAGNOSTICS Her laboratory studies were quite complete in August. I am impressed that her chest x-ray demonstrates a normal cardiac silhouette. Her laboratory studies have been quite stable during her dialysis treatments at [facility]. I note that she has had no major difficulty with dialysis. I have a clinical summary from her dialysis visit on 04/05/2008. At that time, blood pressures had been quite stable. Her calcium was 9.3, phosphorus 4.0, hemoglobin 11.7. I did review her cardiogram; it is entirely normal during her evaluation for transplant. ASSESSMENT / PLAN #1 End-stage renal disease, failed renal allograft #2 Ongoing immunosuppression #3 Ureteral stent for replacement I am cautiously optimistic that Ms. Wray will do well with her surgical procedure, which is quite modest. I would favor postprocedural antibiotics per Dr. Lance. She is aware of our concerns thatchase is somewhat pre-sensitized for her next renal allograft. It is prudent to maintain low-level immunosuppression as she is doing. Overall, I believe she has had no excessive cardiovascular risks and is okay for anesthesia for this procedure. Juvenal Plummer M.D. Job ID: [id number] documented in this encounter Plan of Treatment Upcoming Encounters Date Type Specialty Care Team Description 06/01/2022 Telemedicine Pharmacy An Nicholas APRN, C.N.P., D.N.P., M.S.N. [address] [place] [address] [phone] (Wo rk) 07/31/2022 Lab Laboratory Medicine Tony Rubalcava M. B., Sydnie, MDebra [address] [place] [address] 55 [phone] (Wo rk) 07/31/2022 Lab Laboratory Medicine Tony Rubalcava M. B., Sydnie, Mukund [address] [place] [address] 55 [phone] (Wo rk) 07/31/2022 Office Visit Transplant Tony Rubalcava M.B., Sydnie, Mukund [address] [place] [address] 55 [phone] (Wo rk) 07/31/2022 Appointment Radiology Tony Rubalcava M.B., Sydnie, MDebra [address] [place] [address] 55 [phone] (Wo rk) 08/01/2022 Office Visit Transplant Tony Rubalcava M.B., Sydnie, MDebra [address] [place] [address] 55 [phone] (Wo rk) 08/01/2022 Clinical Support Transplant Tony Rubalcava M.B., Sydnie, MDaviDDavi [address] [place] [address] 55 [phone] (Wo rk) documented as of this encounter Visit Diagnoses Diagnosis Complication Kidney Transplant (HCC) - P rimary Obstruction Ureter Transplant Renal (HCC) documented in this encounter Additional Health Concerns Assessment Noted Time PHQ-9 Depression Total Score: 3 09/13/2017 7:47 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
--- OUTSIDE RECORDS SUMMARY | 2022-05-25 13:30 | XMS_ITS | Encounter Summary ---
:1960 Author Organization [facility] Address [address] [place] [address] Care Team Providers Name Role Phone Unavailable Primary Care Provider Unavailable Encounter Details Date Type Department Care Team Description 05/10/2018 Hospital Encounter Department of Spear, Crossing Vessel And Stricture Of Ureter Without Hydronephrosis; Laboratory Medicine Geraldo Domínguez M.D . Transplant Renal (HCC) and Pathology, [address] [place] [address], in [place], [place] [address] [place] [address] [place], [place] (Work) [phone] Social History Tobacco Use Types Packs/Day Years [...] How often do you attend episcopal or congregation 1 to 4 times per [...] 1 tablet by 0 06/13/2017 05/31/20 19 31-nkpkw-P-biot-zinc mouth daily. (DIALYVITE) [id number] sh-fn-flh-mg tablet ciprofloxacin (CIPRO) Take 1 tablet by [...] Nicholas APRN C.N.P., D.N.P., M.S.N. [address] [place] [address] 55 [phone] (Nicolas wen) 07/31/2022 Lab Laboratory Medicine Tony Rubalcava M. B., Ch.B., M.D. [address] [place] [address] 55 [phone] (Nicolas wen) 07/31/2022 Lab Laboratory Medicine Tony Rubalcava M. B., Ch.B., M.D. [address] [place] [address] 55 [phone] (Nicolas wen) 07/31/2022 Office Visit Transplant Tony Rubalcava M.B., Ch.B., M.D. [address] [place] [address] [phone] (Nicolas wen) 07/31/2022 Appointment Radiology Tony Rubalcava M.B., Mukund Otoole [address] [place] [address] [phone] (Wo rk) 08/01/2022 Office Visit Transplant Tony Rubalcava M.B., Mukund [place] [address] [place] [address] [phone] (Wo rk) 08/01/2022 Clinical Support Transplant Tony Rubalcava M.B., Mukund Otoole [address] [place] [address] [phone] (Wo rk) documented as of this encounter Procedures Procedure Name Priority Date/Time Associated Diagnosis Comme nts MICROSCOPIC MANUAL Routine 05/10/2018 12:23 Resul ts for this PM CDT procedure are i n the results section. BACTERIAL CULTURE, Routine 05/10/2018 12:23 Crossing Vessel An d Results for this AEROBIC + SUSC, PM CDT Stricture Of Ureter proce dure are in URINE Without Hydronep hrosis the results Transplant Renal (HCC) secti on. URINALYSIS WITH Routine 05/10/2018 12:23 Transplant Jessica l (HCC) Results for this MICROSCOPIC PM CDT Crossing Vessel And procedur e are in Stricture Of Ureter the resu lts Without Hydronephrosis secti on. GRAM'S STAIN, Routine 05/10/2018 12:21 Results fo r this CONFIRMATORY, U PM CDT procedure ar e in the results section. GRAM'S ST, U Routine 05/10/2018 12:21 Transplant Jessica l (HCC) Results for this PM CDT Crossing Vessel And procedur e are in Stricture Of Ureter the resu lts Without Hydronephrosis secti on. documented in this encounter Results (ABNORMAL) Microscopic Manual (05/10/2018 12:23 PM CDT) Analysis Performed At Patho logis Time Signature Microscopy Abnormal 05/10/2018 [facility] 1:42 PM CDT LAB[facility]ATOR[facility] - [facility] RBC <3 <3 /hpf 05/10/2018 [facility] 1:42 PM CDT [facility] WBC 11-20 (A) /hpf 05/10/2018 [facility] 1:42 PM CDT [facility] Comment: ----REFERENCE VALUE---- 1-3 ??(Males) 1-10 (Females) Bacteria Present (A) 05/10/2018 1:42 PM CDT [facility] Specimen Anatomical Collection Method Collection Time Receive d Time (Source) Location / / Volume Laterality Urine 05/10/2018 12:23 05/10/2018 PM CDT 12:23 PM CDT Geraldo Spear M.D. LAB URINE ORDERABLES Performing Organization Address City/State/ZIP Code Phon e Number [facility] - [address] [place] [address] 05 [facility] (ABNORMAL) Urinalysis with Microscopic (05/10/2018 12:23 PM CDT) [facility] gist Method Time Signature Source Midstream 05/10/2018 [facility] 12:24 PM CDT [facility] Appearance Normal Normal 05/10/2018 [facility] 1:19 PM T [facility] Osmolality, U 306 150 - 1150 05/10/2018 [facility] mOsm/kg 1:00 PM [facility] pH, U 7.8 4.5 - 8.0 05/10/2018 [facility] 1:00 PM T [facility] Comment: ----ADDITIONAL INFORMATION---- This test was developed and its performa nce characteristics determined by [facility] in a manner co nsistent with CLIA requirements. This test has not bee n cleared or approved by the U.S. Food and Drug Admin istration. Glucose 9 0 - 15 mg/dL 05/10/2018 1:19 PM CDT [facility] Protein, U 128 (H) <26 mg/dL 05/10/2018 1:19 PM CDT [facility] Comment: ----ADDITIONAL INFORMATION---- On 02/13/2017 the total protein assay me thod changed resulting in approximately a 15% increase in prote in values. Protein/Osmolality 4.18 (H) <0.42 Ratio 05/10/2018 1:19 PM [facility] Comment: ----ADDITIONAL INFORMATION---- On 02/13/2017 the total protein assay me thod changed resulting in approximately a 15% increase in prote in values. Predicted 24 Hr 2453 mg/24 h 05/10/2018 1:19 PM [facility] Protein CDT [facility]ATOR[facility] - [facility] Predicted Range 606-9931 mg/24 h 05/10/2018 1:19 PM [facility] CDT [facility] - [facility] Hemoglobin, QL Trace (A) Negative 05/10/2018 1:42 PM [facility] CDT [facility] - [facility] Comment Micro done on 05/10/2018 1:38 PM [facility] <5 mL CDT [facility] - [facility] Specimen Anatomical Collection Method Collection Time Receive d Time (Source) Location / / Volume Laterality Urine 05/10/2018 12:23 05/10/2018 PM CDT 12:23 PM CDT Geraldo Spear M.D. LAB URINE ORDERABLES Performing Organization Address City/[facility] Code Phon e Number [facility] LABORATORIES - [address] Bacterial Culture, Aerobic + Susc, Urine (05/10/2018 12:23 PM CDT) [facility] [place] Method Time Signature Urine Culture No growth 05/11/2018 [facility] after 1 8:13 AM CDT LABORATORIES - day of [facility] . Specimen Anatomical Collection Method Collection Time Receive d Time (Source) Location / / Volume Laterality Urine (Urine) 05/10/2018 12:23 05/10/2018 2:24 PM CDT PM CDT Comment: Specimen Source Site: Urine Geraldo Spear M.D. LAB MICROBIOLOGY - GENERAL O RDERABLES Performing Organization Address City/[facility]/ZIP Code Phon e Number [facility] LABORATORIES - [address] [place] [address] [facility] (ABNORMAL) Gram Stain, Confirmatory, Urine (05/10/2018 12:21 PM CDT[facility] Signature Grams Stain, Positive (A) 05/10/2018 [facility] Confirmatory, 12:40 PM CDT LABORATORIES - Urine [facility] Comment: Many Gram-negative bacilli Many Gram-positive cocci Many Gram-positive bacilli ----ADDITIONAL INFORMATION---- This test was developed and its performa nce characteristics determined by [facility] in a manner co nsistent with CLIA requirements. This test has not bee n cleared or approved by the U.S. Food and Drug Admin istration. Specimen Anatomical Collection Method Collection Time Receive d Time (Source) Location / / Volume Laterality Urine 05/10/2018 12:21 05/10/2018 PM CDT 12:21 PM CDT Geraldo Spear M.D. LAB URINE ORDERABLES Performing Organization Address City/[facility] Code Phon e Number [facility] LABORATORIES - [address] [place], [place] [address] [facility] Gram Stain, Urine (05/10/2018 12:21 PM CDT) [facility] gist Method Time Signature Source Midstream 05/10/2018 [facility] 12:21 PM CDT LABORATORIES [facility] Gram's Stain, CANCELED 05/10/2018 [facility] Screen, U 12:40 PM CDT LAB[facility]ATOR[facility] - [facility] Comment: See confirmatory gram stain result ----ADDITIONAL INFORMATION---- This test has been modified from the man ufacturer's instructions. Its performance characteri stics were determined by [facility] in a manner co nsistent with CLIA requirements. This test has not bee n cleared or approved by the U.S. Food and Drug Admin istration. Result canceled by the ancillary Specimen Anatomical Collection Method Collection Time Receive d Time (Source) Location / / Volume Laterality Urine 05/10/2018 12:21 05/10/2018 PM CDT 12:21 PM CDT Geraldo Spear M.D. 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
--- OUTSIDE RECORDS SUMMARY | 2022-05-25 13:30 | XMS_ITS | Encounter Summary ---
:1960 Author Organization [facility] Address [address] [place] [address] Care Team Providers Name Role Phone Unavailable Primary Care Provider Unavailable Reason for Visit Outpatient (Routine) - Closed Specialty Diagnoses / Procedures Referred By Contact Refer red To Contact Urology Gaudencio Lance M.D. [facility] 200 [place] [address] Referral ID Status Reason Start Date Expiration Date Visits Requ ested Visits Authorized [id number] Closed 04/03/2018 04/03/2019 1 1 Encounter Details Date Type Department Care Team Description 05/10/2018 Office Visit Department of Urology Praveen Jasso P .A.-C. Obstruction Ureter (Primary Dx); in [place], Paz Diehl P.A.-C. [address] [place] [phone] Transplant Renal (HCC) [address] [address] Social History Tobacco Use Types Packs/Day Years [...] How often do you attend caodaism or taoist 1 to 4 times per [...] slept in a nursing home (including now)? Sex Assigned at Date Recorded Female 12/23/2021 4:18 AM CDT documented as of this encounter Progress Notes Daija Fuentes APRN, C.N.P., D.N.P. - 05/10/2018 3:00 PM CDT SUBJECTIVE CHIEF COMPLAINT/REASON FOR VISIT Listing visit for stent exchange. Seen on Paz Diehl PA-c's calendar. HISTORY OF PRESENT ILLNESS Ms. Wray is a pleasant 57-year-old female presenting today for listing visit of right ureteral stent exchange with Dr. Spear on May 14, 2018. Her medical history is significant for cadaveric renal transplant in 2007 at the [facility] secondary to hypertensive nephrosclerosis. 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 Her last stent exchangewas on June 12, 2017. She is currently on every other day dialysis, and is on renal transplant list. Our colleagues in transplant team has okayed her for anesthesia. Clinically, she is doing extremely well without any urologic symptoms. She denies any hematuria, dysuria, abdominal pain or flank pain. She denies any systemic symptoms including fever, chills, nausea, vomiting, unintended weight loss, loss of appetite, new bone pain, chest pain or shortness of breath. She does not take any blood thinners or NSAIDs. The following portions of the patient's history were reviewed and updated as appropriate: allergies,current medications, family history, medical history, social history, surgical history and problem list. REVIEW OF SYSTEMS ENT: Positive for sinus congestion. Respiratory: Positive for coughing up mucus (phlegm). Hematologic: Positive for bruises or bleeds easily. Neurological: Positive for numbness or shooting pain in hands, arms, legs, or feet and headaches. The following systems were negative: Constitutional, Skin, Eyes, CV, GI, , Musculoskeletal, Psych OBJECTIVE There were no vitals filed for this visit. PHYSICAL EXAM Constitutional: She is oriented to person, place, and time. She appears well- developed and well-nourished. HENT: Head: Normocephalic. Eyes: Conjunctivae are normal. Pulmonary/Chest: Effort normal. Abdominal: Abdomen appears normal. Neurological: She is alert and oriented to person, place, and time. Skin: Skin is warm and dry. Psychiatric: She has a normal mood and affect. Her behavior is normal. ASSESSMENT / PLAN Diagnosis Plan 1. Obstruction Ureter 2. Transplant Renal (HCC) It was a pleasure meeting Ms. Wray for right ureteral stent exchange listing visit. The risks and benefits of the procedure were discussed. The risks includes but not limited to bleeding, infection, damage to adjacent organs, scar tissue formation, need for catheters post procedure, and risk of anesthesia including heart attack, stroke and . Dietary restrictions were discussed with the patient that include NPO after midnight and clear liquids two hours prior to the procedure. Preprocedure handbook was provided. Informed consent was signed on my presence. She is currently not on any blood thinners or NSAIDs. Her urinalysis and culture are pending. I will follow up on the results and treatas necessary. Prescription for ciprofloxacin has been sent to her local pharmacy. All questions were answered to patient's satisfaction. She verbalized understanding and did not haveany further questions today. Plan 1. Right ureteral stent exchange with Dr. Spear on May 14, 2018. Greater than 50% of 20 minutes was spent counseling and educating patient. Signed by: Daija Fuentes APRN, C.N.PDavi, D.N.P. 05/10/2018 12:59 PM documented in this encounter Plan of Treatment Upcoming Encounters Date Type Specialty Care Team Description 06/01/2022 Telemedicine Pharmacy An Nicholas APRN, C.N.P., WhitneyN.P., M.S.N. [address] [place] [address] [phone] (Nicolas rk) 07/31/2022 Lab Laboratory Medicine Tony Rubalcava M. B., ChBurke, MDebra [address] [place] [address] 55 [phone] (Nicolas wen) 07/31/2022 Lab Laboratory Medicine Tony Rubalcava M. B., Sydnie, Mukund [address] [place] [address] 55 [phone] (Nicolas wen) 07/31/2022 Office Visit Transplant Tony Rubalcava M.B., Sydnie, MDebra [address] [place] [address] [phone] (Nicolas wen) 07/31/2022 Appointment Radiology Tony Rubalcava M.B., ChBurke, MDebra [address] [place] [address] [phone] (Nicolas wen) 08/01/2022 Office Visit Transplant Tony Rubalcava M.B., ChBurke, MDebra [address] [place] [address] 55 [phone] (Nicolas wen) 08/01/2022 Clinical Support Transplant Tony Rubalcava M.B., Sydnie, MDebra [address] [place] [address] [phone] (Nicolas wen) documented as of this encounter Visit Diagnoses Diagnosis Obstruction Ureter - Primary Transplant Renal (HCC) documented in this encounter Additional Health Concerns Assessment Noted Time PHQ-9 Depression Total Score: 3 09/13/2017 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
--- OUTSIDE RECORDS SUMMARY | 2022-05-25 13:31 | XMS_ITS | Encounter Summary ---
:1960 Author Organization [facility] Address [address] [place] [address] Care Team Providers Name Role Phone Unavailable Primary Care Provider Unavailable Encounter Details Date Type Department Care Team Description 09/12/2017 Hospital Encounter HX NO MAPPING Social History Tobacco Use Types Packs/Day Years Used Date Smoking Tobacco: Never Assessed Alcohol Habits Answer Date Recorded How often [...] How often do you attend cheondoism or episcopal 1 to 4 times per [...] Sig Dispensed Refills Start Date End Date amLODIPine (for_NORVASC) Take 1 tablet by 0 07/1007/01/2018 10 mg tablet mouth daily. B complex Take 1 tablet by 0 06/13/2017 05/31/20 19 10-kmrpv-M-biot-zinc mouth daily. (DIALYVITE) [id number] im-oi-shx-mg tablet lidocaine-prilocaine Apply 1 application 0 201607/08/2018 (for_EMLA) 2.5-2.5 % topically as cream directed. losartan (for_COZAAR) 50 Take 1 tablet by 0 07/1007/01/2018 mg tablet mouth daily. mycophenolate (CELLCEPT) Take 2 capsules by 0 09/201605/27/2018 250 mg capsule mouth 2 (two) times a day. nebivolol (BYSTOLIC) 10 Take 1 tablet by 0 201608/26/2018 mg tablet mouth daily. predniSONE Take 1 tablet by 0 05/21/2017 05/27/20 18 (for_DELTASONE) 5 mg mouth daily. tablet documented as of this encounter Plan of Treatment Upcoming Encounters Date Type Specialty Care Team Description 06/01/2022 Telemedicine Pharmacy An Nicholas APRN, C.N.P., D.N.P., M.S.N. [address] [place] [address] 55 [phone] (Nicolas wen) 07/31/2022 Lab Laboratory Medicine Tony Rubalcava M. B., Ch.B., M.D. [address] [place] [address] 55 [phone] (Nicolas wen) 07/31/2022 Lab Laboratory Medicine Tony Rubalcava M. B., Ch.B., M.D. [address] [place] [address] 55 [phone] (Nicolas wen) 07/31/2022 Office Visit Transplant Tony Rubalcava M.B., Sydnie, Mukund [address] [place] [address] [phone] (Wo rk) 07/31/2022 Appointment Radiology Tony Rubalcava M.B., Sydnie, Mukund [address] [place] [address] 55 [phone] (Wo rk) 08/01/2022 Office Visit Transplant Tony Rubalcava M.B., Sydnie, Mukund [address] [place] [address] [phone] (Wo rk) 08/01/2022 Clinical Support Transplant Tony Rubalcava M.B., Sydnie, Mukund [address] [place] [address] [phone] (Wo rk) documented as of this encounter Visit Diagnoses Not on filedocumented in this encounter Additional Health Concerns Assessment Noted Time PHQ-9 Depression Total Score: 3 09/12/2017 12:04 PM CS T documented as of this encounter
--- OUTSIDE RECORDS SUMMARY | 2022-05-25 13:31 | XMS_ITS | Encounter Summary ---
:1960 Author Organization [facility] Address [address] [place] [address] Care Team Providers Name Role Phone Unavailable Primary Care Provider Unavailable Encounter Details Date Type Department Care Team Description 10/11/2017 Hospital Encounter HX NO MAPPING Social History [...] How often do you attend orthodox or pentecostalism 1 to 4 times per [...] 1 tablet by 0 06/13/2017 05/31/20 19 21-jtntf-P-biot-zinc mouth daily. (DIALYVITE) [id number] ou-bn-dzb-mg tablet ciprofloxacin Take 1 tablet by 0 [...] Nicholas APRN, C.N.P., D.N.P., M.S.N. [address] [place] [address] 55 [phone] (Nicolas wen) 07/31/2022 Lab Laboratory Medicine Tony Rubalcava M. B., ChBurke, M.Whitney [address] [place] [address] 55 [phone] (Nicolas wen) 07/31/2022 Lab Laboratory Medicine Tony Rubalcava M. B., ChBurke, MDebra [address] [place] [address] 55 [phone] (Nicolas wen) 07/31/2022 Office Visit Transplant Tony Rubalcava M.B., Sydnie, MDebra [address] [place] [address] 55 [phone] (Nicolas wen) 07/31/2022 Appointment Radiology Tony Rubalcava M.B., ChBurke, MDebra [address] [place] [address] 55 [phone] (Nicolas wen) 08/01/2022 Office Visit Transplant Tony Rubalcava M.B., ChBurke, MDaviDDavi [address] [place] [address] 55 [phone] (Nicolas wen) 08/01/2022 Clinical Support Transplant Tony Rubalcava M.B., Sydnie, MDaviDDavi [address] [place] [address] 55 [phone] (Nicolas wen) documented as of this encounter Visit Diagnoses Not on filedocumented in this encounter Additional Health Concerns Assessment Noted Time PHQ-9 Depression Total Score: 3 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
--- OUTSIDE RECORDS SUMMARY | 2022-05-25 13:31 | XMS_ITS | Encounter Summary ---
:1960 Author Organization [facility] Address [address] [place] [address] Care Team Providers Name Role Phone Unavailable Primary Care Provider Unavailable Encounter Details Date Type Department Care Team Description 06/12/2017 Hospital Encounter HX NO MAPPING Social History [...] How often do you attend zoroastrian or orthodoxy 1 to 4 times per [...] Sig Dispensed Refills Start Date End Date mycophenolate (CELLCEPT) Take 2 capsules by 0 09/201605/27/2018 250 mg capsule mouth 2 (two) times a day. predniSONE Take 1 tablet by 0 05/21/2017 05/27/20 18 (for_DELTASONE) 5 mg mouth daily. tablet documented as of this encounter Plan of Treatment Upcoming Encounters Date Type Specialty Care Team Description 06/01/2022 Telemedicine Pharmacy An Nicholas APRN C.N.P., D.N.P., M.S.N. [address] [place] [address] 55 [phone] (Wo rk) 07/31/2022 Lab Laboratory Medicine Tony Rubalcava M. B., Sydnie, MDebra [address] [place] [address] 55 [phone] (Wo rk) 07/31/2022 Lab Laboratory Medicine Tony Rubalcava M. B., Sydnie, MDebra [address] [place] [address] 55 [phone] (Wo rk) 07/31/2022 Office Visit Transplant Tony Rubalcava M.B., ChDaviBDavi, MDebra [address] [place] [address] 55 [phone] (Wo rk) 07/31/2022 Appointment Radiology Tony Rubalcava M.B., ChBurke, MDebra [address] [place] [address] 55 [phone] (Wo rk) 08/01/2022 Office Visit Transplant Tony Rubalcava M.B., ChBurke, MDebra [address] [place] [address] 55 [phone] (Wo rk) 08/01/2022 Clinical Support Transplant Tony Rubalcava M.B., Sydnie, MElvia. [address] [place], [place] 55 [phone] (Wo rk) documented as of this encounter Visit Diagnoses Not on filedocumented in this encounter
--- OUTSIDE RECORDS SUMMARY | 2022-05-25 13:31 | XMS_ITS | Encounter Summary ---
:1960 Author Organization [facility] Address [address] [place] [address] Care Team Providers Name Role Phone Unavailable Primary Care Provider Unavailable Encounter Details Date Type Department Care Team Description 09/05/2017 Hospital Encounter HX NO MAPPING Social History [...] How often do you attend jain or jainism 1 to 4 times per [...] 1 tablet by 0 06/13/2017 05/31/20 19 09-tllbv-Y-biot-zinc mouth daily. (DIALYVITE) [id number] dt-yx-zwf-mg tablet lidocaine-prilocaine Apply 1 application 0 201607/08/2018 [...] An Nicholas APRN, C.N.P., D.N.P., M.S.N. [address] [place] [address] 55 [phone] (Nicolas wen) 07/31/2022 Lab Laboratory Medicine Tony Rubalcava M. B., Ch.B., M.D. [address] [place] [address] 55 [phone] (Nicolas wen) 07/31/2022 Lab Laboratory Medicine Tony Rubalcava M. B., Ch.B., M.D. [address] [place] [address] 55 [phone] (Nicolas wen) 07/31/2022 Office Visit Transplant Tony Rubalcava M.B., Sydnie, Mukund [address] [place] [address] 55 [phone] (Wo rk) 07/31/2022 Appointment Radiology Tony Rubalcava M.B., Sydnie, Mukund [address] [place] [address] 55 [phone] (Wo rk) 08/01/2022 Office Visit Transplant Tony Rubalcava M.B., Sydnie, Mukund [address] [place] [address] 55 [phone] (Wo rk) 08/01/2022 Clinical Support Transplant Tony Rubalcava M.B., Sydnie, Mukund [address] [place] [address] 55 [phone] (Wo rk) documented as of this encounter Visit Diagnoses Not on filedocumented in this encounter
--- OUTSIDE RECORDS SUMMARY | 2022-05-25 13:31 | XMS_ITS | Encounter Summary ---
:1960 Author Organization [facility] Address [address] [place] [address] Care Team Providers Name Role Phone Elsewhere, Pcp Primary Care Provider Unavailable Encounter Details Date Type Department Care Team Description 10/03/2017 Abstract Ata Dick [place] for Transpla nt, Transplantation and Clinical Coordinator, [facility] in [place], [place] [address] [place] [address] Social History Tobacco Use Types Packs/Day [...] How often do you attend jainism or congregational 1 to 4 times per [...] Nicholas APRN C.N.P., D.N.P., M.S.N. [address] [place] [address] 55 [phone] (Nicolas wen) 07/31/2022 Lab Laboratory Medicine Tony Rubalcava M. B., ChBurke, MDebra [address] [place] [address] 55 [phone] (Nicolas wen) 07/31/2022 Lab Laboratory Medicine Tony Rubalcava M. B., ChBurke, MDebra [address] [place] [address] 55 [phone] (Nicolas wen) 07/31/2022 Office Visit Transplant Tony Rubalcava M.B., ChBurke, MDebra [address] [place] [address] [phone] (Nicolas wen) 07/31/2022 Appointment Radiology Tony Rubalcava M.B., ChDaviBDavi, MElvia. [address] [place] [address] 55 [phone] (Nicolas wen) 08/01/2022 Office Visit Transplant Tony Rubalcava M.B., ChBurke, MDaviD. 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
--- OUTSIDE RECORDS SUMMARY | 2022-05-25 13:31 | XMS_ITS | Encounter Summary ---
:1960 Author Organization [facility] Address [address] [place] [address] Care Team Providers Name Role Phone Unavailable Primary Care Provider Unavailable Encounter Details Date Type Department Care Team Description 09/14/2017 Hospital Encounter HX NO MAPPING Social History [...] How often do you attend gnosticism or mandaeism 1 to 4 times per [...] 1 tablet by 0 06/13/2017 05/31/20 19 79-wfwpv-Y-biot-zinc mouth daily. (DIALYVITE) 8-883-724-50 yi-cw-fbu-mg tablet lidocaine-prilocaine Apply 1 application 0 201607/08/2018 [...] 09/14/20172018 (for_CRESTOR) 5 mg mouth daily. tablet documented as of this encounter Plan of Treatment Upcoming Encounters Date Type Specialty Care Team Description 06/01/2022 Telemedicine Pharmacy An Nicholas APRN, C.N.P., D.N.P., M.S.N. [address] [place] [address] 55 [phone] (Wo rk) 07/31/2022 Lab Laboratory Medicine Tony Rubalcava M. B., Ch.B., M.D. [address] [place] [address] 55 [phone] (Wo rk) 07/31/2022 Lab Laboratory Medicine Tony Rubalcava M. B., Ch.B., Mukund [address] [place] [address] 55 [phone] (Wo rk) 07/31/2022 Office Visit Transplant Tony Rubalcava M.B., Sydnie, Mukund [address] [place] [address] 55 [phone] (Nicolas wen) 07/31/2022 Appointment Radiology Tony Rubalcava M.B., Sydnie, Mukund [address] [place] [address] 55 [phone] (Nicolas wen) 08/01/2022 Office Visit Transplant Tony Rubalcava M.B., Sydnie, Mukund [address] [place] [address] 55 [phone] (Nicolas wen) 08/01/2022 Clinical Support Transplant Tony Rubalcava M.B., Sydnie, Mukund [address] [place] [address] 55 [phone] (Nicolas wen) documented as of this encounter Visit Diagnoses Not on filedocumented in this encounter Additional Health Concerns Assessment Noted Time PHQ-9 Depression Total Score: 3 09/13/2017 7:47 AM 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
--- OUTSIDE RECORDS SUMMARY | 2022-05-25 13:31 | XMS_ITS | Encounter Summary ---
:1960 Author Organization [facility] Address [address] [place] [address] Care Team Providers Name Role Phone Unavailable Primary Care Provider Unavailable Encounter Details Date Type Department Care Team Description 09/11/2016 Hospital Encounter HX NO MAPPING Social History [...] How often do you attend shinto or quaker 1 to 4 times per [...] 06/01/2022 Telemedicine Pharmacy An Nicholas APRN, C.N.P., Michelle.NDaviP., M.S.N. [address] [place] [address] [phone] (Wo rk) 07/31/2022 Lab Laboratory Medicine Tony Rubalcava M. B., ChBurke, MDebra [address] [place] [address] [phone] (Wo rk) 07/31/2022 Lab Laboratory Medicine Tony Rubalcava M. B., ChBurke, Mukund [address] [place] [address] [phone] (Wo rk) 07/31/2022 Office Visit Transplant Tony Rubalcava M.B., Sydnie, MDebra [address] [place] [address] [phone] (Wo rk) 07/31/2022 Appointment Radiology Tony Rubalcava M.B., ChBurke, MDebra [address] [place] [address] 55 [phone] (Wo rk) 08/01/2022 Office Visit Transplant Tony Rubalcava M.B., Sydnie, MDebra [address] [place] [address] 55 [phone] (Wo rk) 08/01/2022 Clinical Support Transplant Tony Rubalcava M.B., ChBurke, MDebra [address] [place] [address] [phone] (Wo rk) documented as of this encounter Visit Diagnoses Not on filedocumented in this encounter
--- OUTSIDE RECORDS SUMMARY | 2022-05-25 13:31 | XMS_ITS | Encounter Summary ---
:1960 Author Organization [facility] Address [address] [place] [address] Care Team Providers Name Role Phone Unavailable Primary Care Provider Unavailable Encounter Details Date Type Department Care Team Description 09/05/2017 Telemedicine Department of Urology Social History Tobacco Use [...] How often do you attend muslim or denominational 1 to 4 times per [...] An Nicholas APRN, C.N.P., Michelle.NDaviP., M.S.N. [address] [place] [address] [phone] (Wo rk) 07/31/2022 Lab Laboratory Medicine Tony Rubalcava M. B., ChBurke, MDebra [address] [place] [address] [phone] (Wo rk) 07/31/2022 Lab Laboratory Medicine Tony Rubalcava M. B., ChBurke, Mukund [address] [place] [address] [phone] (Wo rk) 07/31/2022 Office Visit Transplant Tony Rubalcava M.B., Sydnie, MDebra [address] [place] [address] [phone] (Wo rk) 07/31/2022 Appointment Radiology Tony Rubalcava M.B., ChBurke, MDebra [address] [place] [address] 55 [phone] (Wo rk) 08/01/2022 Office Visit Transplant Tony Rubalcava M.B., Sydnie, MDebra [address] [place] [address] 55 [phone] (Wo rk) 08/01/2022 Clinical Support Transplant Tony Rubalcava M.B., ChBurke, MDebra [address] [place] [address] [phone] (Wo rk) documented as of this encounter Procedures Procedure Name Priority Date/Time Associated Diagnosis Comme nts UROLOGY IMAGE EXAM Routine 09/05/2017 10:41 AM Re sults for this MINE SURVEYOR procedure are i n the results section. documented in this encounter Results UROLOGY IMAGE EXAM (09/05/2017 10:41 AM MINE SURVEYOR) Specimen (Source) Anatomical Collection Method Collection Time Re ceived Time Location / / Volume Laterality 09/05/2017 11:08 AM MINE SURVEYOR Narrative IIMS - 09/05/2017 10:41 AM MINE SURVEYOR This order has been created and auto-finalized [...]
--- OUTSIDE RECORDS SUMMARY | 2022-05-25 13:31 | XMS_ITS | Encounter Summary ---
:1960 Author Organization [facility] Address [address] [place] [address] Care Team Providers Name Role Phone Unavailable Primary Care Provider Unavailable Encounter Details Date Type Department Care Team Description 01/09/2017 Hospital Encounter HX NO MAPPING Social History [...] How often do you attend pentecostalism or jewish 1 to 4 times per [...] Sign Reading Time Taken Comments Blood Pressure 171/86 01/09/2017 2:14 PM CDT Pulse 63 01/09/2017 2:14 PM CDT Temperature - - Respiratory Rate 18 01/09/2017 2:14 PM CDT Oxygen Saturation - - Inhaled Oxygen Concentration - - Weight 100 kg (221 lb 5.5 oz) 01/09/2017 6:45 AM CDT Height 162 cm (5' 3.78) 01/09/2017 6:45 AM CDT Body Mass Index 38.26 01/09/2017 6:45 AM CDT documented in this encounter Plan of Treatment Upcoming Encounters Date Type Specialty Care Team Description 06/01/2022 Telemedicine Pharmacy An Nicholas APRN C.N.PDavi, D.N.P., M.S.N. [address] [place] [address] [phone] (Wo rk) 07/31/2022 Lab Laboratory Medicine Tony Rubalcava M. B., ChBurke, MDebra [address] [place] [address] 55 [phone] ( rk) 07/31/2022 Lab Laboratory Medicine Tony Rubalcava M. B., ChBurke, MDebra [address] [place] [address] 55 [phone] (Wo rk) 07/31/2022 Office Visit Transplant Tony Rubalcava M.B., ChDaviBDavi, MDebra [address] [place] [address] 55 [phone] ( rk) 07/31/2022 Appointment Radiology Tony Rubalcava M.B., ChBurke, MDebra [address] [place] [address] 55 [phone] ( rk) 08/01/2022 Office Visit Transplant Tony Rubalcava M.B., Sydnie, Mukund [address] [place] [address] 55 [phone] (Wo rk) 08/01/2022 Clinical Support Transplant Tony Rubalcava M.B., Sydnie, Mukund [address] [place] [address] 55 [phone] (Wo rk) documented as of this encounter Visit Diagnoses Not on filedocumented in this encounter
--- OUTSIDE RECORDS SUMMARY | 2022-05-25 13:31 | XMS_ITS | Encounter Summary ---
:1960 Author Organization [facility] Address [address] [place] [address] Care Team Providers Name Role Phone Unavailable Primary Care Provider Unavailable Encounter Details Date Type Department Care Team Description 06/29/2017 Hospital Encounter HX NO MAPPING Social History [...] often do you attend oriental orthodox or congregation 1 to 4 times per [...] Sig Dispensed Refills Start Date End Date B complex Take 1 tablet by 0 06/13/2017 05/31/20 19 36-tyeso-H-biot-zinc mouth daily. (DIALYVITE) [id number] uw-go-isj-mg tablet lidocaine-prilocaine Apply 1 application 0 201607/08/2018 (for_EMLA) 2.5-2.5 % topically as cream directed. mycophenolate (CELLCEPT) Take 2 capsules by 0 09/201605/27/2018 250 mg capsule mouth 2 (two) times a day. predniSONE Take 1 tablet by 0 05/21/2017 05/27/20 18 (for_DELTASONE) 5 mg mouth daily. tablet documented as of this encounter Plan of Treatment Upcoming Encounters Date Type Specialty Care Team Description 06/01/2022 Telemedicine Pharmacy An Nicholas APRN, C.N.P., D.N.P., M.S.N. [address] [place] [address] 55 [phone] (Nicolas wen) 07/31/2022 Lab Laboratory Medicine Tony Rubalcava M. B., Ch.B., M.D. [address] [place] [address] 55 [phone] (Nicolas wen) 07/31/2022 Lab Laboratory Medicine Tony Rubalcava M. B., Ch.B., M.D. [address] [place] [address] 55 [phone] (Nicolas wen) 07/31/2022 Office Visit Transplant Tony Rubalcava M.B., Ch.B., M.D. [address] [place] [address] 55 [phone] (Nicolas wen) 07/31/2022 Appointment Radiology Tony Rubalcava M.B., Sydnie, Mukund [address] [place] [address] 55 [phone] (Wo rk) 08/01/2022 Office Visit Transplant Toyn Rubalcava M.B., Mukund Otoole [address] [place] [address] 55 [phone] (Wo behzad) 08/01/2022 Clinical Support Transplant Tony Rubalcava M.B., Sydnie, Mukund [address] [place] [address] 55 [phone] (Wo behzad) documented as of this encounter Visit Diagnoses Not on filedocumented in this encounter
--- OUTSIDE RECORDS SUMMARY | 2022-05-25 13:31 | XMS_ITS | Encounter Summary ---
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 (DIALYVITE) [id number] go-hg-omk-mg tablet ciprofloxacin Take 1 tablet by 0 [...] An Nicholas APRN, C.NDaviPDavi, WhitneyN.P., M.S.N. [address] [place] [address] 55 [phone] (Nicolas rk) 07/31/2022 Lab Laboratory Medicine Tony Rubalcava M. B., ChBurke, MDebra [address] [place] [address] 55 [phone] (Nicolas rk) 07/31/2022 Lab Laboratory Medicine Tony Rubalcava M. B., ChBurke, Mukund [address] [place] [address] 55 [phone] (Nicolas rk) 07/31/2022 Office Visit Transplant Tony Rubalcava M.B., Sydnie, MDebra [address] [place] [address] 55 [phone] (Nicolas rk) 07/31/2022 Appointment Radiology Tony Rubalcava M.B., ChBurke, MDebra [address] [place] [address] 55 [phone] (Nicolas rk) 08/01/2022 Office Visit Transplant Tony Rubalcava M.B., ChDaviBDavi, MDebra [address] [place] [address] 55 [phone] (Nicolas wen) 08/01/2022 Clinical Support Transplant Tony Rubalcava M.B., ChBurke, M.D. [address] [place] [address] 55 [phone] (Nicolas wen) documented as of this encounter Visit Diagnoses Not on filedocumented in this encounter Additional Health Concerns Assessment Noted Time PHQ-9 Depression Total Score: 3 09/12/2017 12:04 PM CS T documented as of this encounter
--- OUTSIDE RECORDS SUMMARY | 2022-05-25 13:31 | XMS_ITS | Encounter Summary ---
:1960 Author Organization [facility] Address [address] [place] [address] Care Team Providers Name Role Phone Unavailable Primary Care Provider Unavailable Encounter Details Date Type Department Care Team Description 06/12/2017 Telemedicine Department of Urology Social History Tobacco [...] How often do you attend voodoo or congregation 1 to 4 times per [...] An Nicholas APRN, C.N.P., Michelle.NDaviP., M.S.N. [address] [place] [address] [phone] (Wo rk) 07/31/2022 Lab Laboratory Medicine Tony Rubalcava M. B., ChBurke, MDebra [address] [place] [address] [phone] (Wo rk) 07/31/2022 Lab Laboratory Medicine Tony Rubalcava M. B., ChBurke, Mukund [address] [place] [address] [phone] (Wo rk) 07/31/2022 Office Visit Transplant Tony Rubalcava M.B., Sydnie, MDebra [address] [place] [address] [phone] (Wo rk) 07/31/2022 Appointment Radiology Tony Rubalcava M.B., ChBurke, MDebra [address] [place] [address] [phone] (Wo rk) 08/01/2022 Office Visit Transplant Tony Rubalcava M.B., Sydnie, MDebra [address] [place] [address] [phone] (Wo rk) 08/01/2022 Clinical Support Transplant Tony Rubalcava M.B., ChBurke, MDebra [address] [place] [address] [phone] (Wo rk) documented as of this encounter Procedures Procedure Name Priority Date/Time Associated Diagnosis Comme nts UROLOGY IMAGE EXAM Routine 06/12/2017 2:00 PM Res ults for this CDT procedure are i n the results section. documented in this encounter Results UROLOGY IMAGE EXAM (06/12/2017 2:00 PM CDT) Specimen (Source) Anatomical Collection Method Collection Time Re ceived Time Location / / Volume Laterality 06/12/2017 1:58 PM CDT Narrative IIMS - 06/12/2017 2:15 PM CDT This order has been created [...]
--- OUTSIDE RECORDS SUMMARY | 2022-05-25 13:31 | XMS_ITS | Encounter Summary ---
:1960 Author Organization [facility] Address [address] [place] [address] Care Team Providers Name Role Phone Unavailable Primary Care Provider Unavailable Reason for Referral Outpatient (Routine) - Closed Specialty Diagnoses / Referred By Contact Referred To Contact Procedures Physical Medicine and Diagnoses Pain Thumb Left Deanne Fisher, [facility] Tete WHITE, M.S.N. [address] [place] [address] Referral ID Status Reason Start Date Expiration Date Visits Requ ested Visits Authorized [id number] Closed 12/31/2017 06/29/2018 1 1 Scheduling Instructions Please schedule on Sunday or i f possible since patient dialyzes [facility] in [place] Encounter Details Date Type Department Care Team Description 12/31/2017 Orders Only Division of Nephrology Deanne Fisher ain Thumb Left and Hypertension in [place], Tete WHITE, (Radha Wesley) [place], [place] M.S.N. [address] [place] [address] [place] [phone] Social History Tobacco Use Types Packs/Day Years [...] How often do you attend catholic or zoroastrian 1 to 4 times per [...] Nicholas APRN, C.N.P., D.N.P., M.S.N. [address] [place] [address] 55 [phone] (Wo rk) 07/31/2022 Lab Laboratory Medicine Tony Rubalcava M. B., Ch.B., MElvia. [address] [place] [address] 55 [phone] (Wo rk) 07/31/2022 Lab Laboratory Medicine Tony Rubalcava M. B., Ch.B., MElvia. [address] [place] [address] 55 [phone] (Wo rk) 07/31/2022 Office Visit Transplant Tony Rubalcava M.B., Sydnie, Mukund [address] [place] [address] [phone] (Wo rk) 07/31/2022 Appointment Radiology Tony Rubalcava M.B., Sydnie, Mukund [address] [place] [address] 55 [phone] (Wo rk) 08/01/2022 Office Visit Transplant Tnoy Rubalcava M.B., Sydnie, Mukund [address] [place] [address] 55 [phone] (Wo rk) 08/01/2022 Clinical Support Transplant Tony Rubalcava M.B., Sydnie, Mukund [address] [place] [address] 55 [phone] (Wo rk) Scheduled Referrals Name Type Priority Associated Order Schedule Diagnoses Physical Medicine and Outpatient Referral Routine Pain Thumb L eft Expected: Rehabilitation - 12/31/2017 General consult (Approximate ), (clinic) Expires: 12/31/2020 documented as of this encounter Visit Diagnoses Diagnosis Pain Thumb Left - Primary documented in this encounter Additional Health Concerns Assessment Noted Time PHQ-9 Depression Total Score: 3 09/13/2017 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
--- OUTSIDE RECORDS SUMMARY | 2022-05-25 13:31 | XMS_ITS | Encounter Summary ---
:1960 Author Organization [facility] Address [address] [place] [address] Care Team Providers Name Role Phone Unavailable Primary Care Provider Unavailable Encounter Details Date Type Department Care Team Description 11/12/2017 Abstract DATA ABSTRACTION Provider, Historical Social History Tobacco Use Types [...] often do you attend latter day or scientology 1 to 4 times per [...] An Nicholas APRN, C.N.P., Michelle.N.P., M.S.N. [address] [place] [address] [phone] (Wo rk) 07/31/2022 Lab Laboratory Medicine Tony Rubalcava M. B., ChBurke, Mukund [address] [place] [address] [phone] (Wo rk) 07/31/2022 Lab Laboratory Medicine Tony Rubalcava M. B., ChBurke, Mukund [address] [place] [address] [phone] (Wo rk) 07/31/2022 Office Visit Transplant Tony Rubalcava M.B., ChBurke, MDebra [address] [place] [address] [phone] (Wo rk) 07/31/2022 Appointment Radiology Tony Rubalcava M.B., ChBurke, MDebra [address] [place] [address] [phone] (Wo rk) 08/01/2022 Office Visit Transplant Tony Rubalcava M.B., Sydnie, MDebra [address] [place] [address] 55 [phone] (Wo rk) 08/01/2022 Clinical Support Transplant Tony Rubalcava M.B., Sydnie, MDebra [address] [place] [address] 55 [phone] (Wo rk) documented as of this encounter Visit Diagnoses Not on filedocumented in this encounter Additional Health Concerns Assessment Noted Time PHQ-9 Depression Total Score: 3 09/13/2017 7:47 AM 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
--- OUTSIDE RECORDS SUMMARY | 2022-05-25 13:31 | XMS_ITS | Encounter Summary ---
:1960 Author Organization [facility] Address [address] [place] [address] Care Team Providers Name Role Phone Unavailable Primary Care Provider Unavailable Encounter Details Date Type Department Care Team Description 10/10/2017 Hospital Encounter HX NO MAPPING Deanne Fisher A PRN, C.N.P., M.S.N. [address] [place] [address] 55 [phone] (Wo rk) Social History Tobacco [...] How often do you attend confucianist or mandaen 1 to 4 times per [...] 1 tablet by 0 06/13/2017 05/31/20 19 82-vlvzk-C-biot-zinc mouth daily. (DIALYVITE) 7-157-755-50 gy-qu-mas-mg tablet ciprofloxacin Take 1 tablet by 0 [...] An Nicholas APRN, C.NDoc, Michelle.N.P., M.S.N. [address] [place] [address] [phone] (Nicolas rk) 07/31/2022 Lab Laboratory Medicine Tony Rubalcava M. B., ChBurke, MDebra [address] [place] [address] 55 [phone] (Nicolas wen) 07/31/2022 Lab Laboratory Medicine Tony Rubalcava M. B., ChBurke, MDebra [address] [place] [address] 55 [phone] (Nicolas wen) 07/31/2022 Office Visit Transplant Tony Rubalcava M.B., ChBurke, MDebra [address] [place] [address] 55 [phone] (Nicolas wen) 07/31/2022 Appointment Radiology Tony Rubalcava M.B., ChBurke, MDebra [address] [place] [address] 55 [phone] (Nicolas wen) 08/01/2022 Office Visit Transplant Tony Rubalcava M.B., ChDaviBDavi, MDaviDDavi [address] [place] [address] 55 [phone] (Nicolas wen) 08/01/2022 Clinical Support Transplant Tony Rubalcava M.B., Sydnie, MDaviD. 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
--- OUTSIDE RECORDS SUMMARY | 2022-05-25 13:31 | XMS_ITS | Encounter Summary ---
:1960 Author Organization [facility] Address [address] [place] [address] Care Team Providers Name Role Phone Unavailable Primary Care Provider Unavailable Encounter Details Date Type Department Care Team Description 09/14/2017 Telemedicine Department of Gastroenterology Social History Tobacco Use Types Packs/Day Years [...] How often do you attend scientology or hinduism 1 to 4 times per [...] An Nicholas APRN, C.N.P., Michelle.NDaviP., M.S.N. [address] [place] [address] [phone] (Wo rk) 07/31/2022 Lab Laboratory Medicine Tony Rubalcava M. B., ChBurke, MDebra [address] [place] [address] [phone] (Wo rk) 07/31/2022 Lab Laboratory Medicine Tony Rubalcava M. B., ChBurke, Mukund [address] [place] [address] [phone] (Wo rk) 07/31/2022 Office Visit Transplant oTny Rubalcava M.B., Sydnie, MDebra [address] [place] [address] [phone] (Wo rk) 07/31/2022 Appointment Radiology Tony Rubalcava M.B., ChBurke, MDebra [address] [place] [address] 55 [phone] (Wo rk) 08/01/2022 Office Visit Transplant Tony Rubalcava M.B., Sydnie, MDebra [address] [place] [address] [phone] (Wo rk) 08/01/2022 Clinical Support Transplant Tony Rubalcava M.B., ChBurke, MDebra [address] [place] [address] [phone] (Wo rk) documented as of this encounter Procedures Procedure Name Priority Date/Time Associated Comments Diagnosis GASTROENTEROLOGY IMAGE Routine 09/14/2017 8:10 Re sults for this EXAM AM BODY FITTER procedure are i n the results section. documented in this encounter Results GASTROENTEROLOGY IMAGE EXAM (09/14/2017 8:10 AM BODY FITTER) Specimen (Source) Anatomical Collection Method Collection Time Re ceived Time Location / / Volume Laterality 09/14/2017 8:06 AM BODY FITTER Narrative IIMS - 09/14/2017 9:20 AM BODY FITTER This order has been created and auto-finalized [...] Depression Total Score: 3 09/13/2017 7:47 AM BODY FITTER documented as of this encounter
--- OUTSIDE RECORDS SUMMARY | 2022-05-25 13:31 | XMS_ITS | Encounter Summary ---
:1960 Author Organization [facility] Address [address] [place] [address] Care Team Providers Name Role Phone Unavailable Primary Care Provider Unavailable Encounter Details Date Type Department Care Team Description 10/19/2016 Hospital Encounter HX NO MAPPING Social History [...] How often do you attend jewish or buddhism 1 to 4 times per [...] or slept in a ch[facility] (including now)? Sex Assigned at Date Recorded Female 12/23/2021 4:18 AM CDT documented as of this encounter Plan of Treatment Upcoming Encounters Date Type Specialty Care Team Description 06/01/2022 Telemedicine Pharmacy An Nicholas APRN, C.N.P., Michelle.NDaviP., M.S.N. [address] [place] [address] [phone] (Wo rk) 07/31/2022 Lab Laboratory Medicine Tony Rubalcava M. B., ChBurke, MDebra [address] [place] [address] [phone] (Wo rk) 07/31/2022 Lab Laboratory Medicine Tony Rubalcava M. B., ChBurke, Mukund [address] [place] [address] [phone] (Wo rk) 07/31/2022 Office Visit Transplant Tony Rubalcava M.B., Sydnie, MDebra [address] [place] [address] [phone] (Wo rk) 07/31/2022 Appointment Radiology Tony Rubalcava M.B., ChBurke, MDebra [address] [place] [address] [phone] (Wo rk) 08/01/2022 Office Visit Transplant Tony Rubalcava M.B., Sydnie, MDebra [address] [place] [address] [phone] (Wo rk) 08/01/2022 Clinical Support Transplant Tony Rubalcava M.B., ChBurke, MDebra [address] [place] [address] [phone] (Wo rk) documented as of this encounter Visit Diagnoses Not on filedocumented in this encounter
--- OUTSIDE RECORDS SUMMARY | 2022-05-25 13:31 | XMS_ITS | Encounter Summary ---
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 Transplant Renal (HCC) [place] [address] [place] [address] 200 [place] [id number] [phone] Social History Tobacco Use Types Packs/Day Years [...] How often do you attend anabaptism or jain 1 to 4 times per [...] Nicholas APRN C.N.P., D.N.P., M.S.N. [address] [place] [address] [phone] (Wo rk) 07/31/2022 Lab Laboratory Medicine Tony Rubalcava M. B., Sydnie, MDebra [address] [place] [address] [phone] (Wo rk) 07/31/2022 Lab Laboratory Medicine Tony Rubalcava M. B., Sydnie, Mukund [address] [place] [address] [phone] (Wo rk) 07/31/2022 Office Visit Transplant Tony Rubalcava M.B., ChBurke, MDebra [address] [place] [address] [phone] (Wo rk) 07/31/2022 Appointment Radiology Tony Rubalcava M.B., Sydnie, MDebra [address] [place] [address] [phone] (Wo rk) 08/01/2022 Office Visit Transplant Tony Rubalcava M.B., Sydnie, Mukund [address] [place] [address] [place] [phone] (Wo rk) 08/01/2022 Clinical Support Transplant Tony Rubalcava M.B., Mukund [place] [address] [place], [place] [phone] (Wo rk) documented as of this encounter Results (ABNORMAL) Urinalysis with Microscopic (05/10/2018 12:23 PM CDT) [facility] gist Method Time Signature Source Midstream 05/10/2018 [facility] 12:24 PM CDT [facility] Appearance Normal Normal 05/10/2018 [facility] 1:19 PM CDT [facility] Osmolality, U 306 150 - 1150 05/10/2018 [facility] mOsm/kg 1:00 PM CDT [facility] pH, U 7.8 4.5 - 8.0 05/10/2018 [facility] 1:00 PM CDT [facility] Comment: ----ADDITIONAL INFORMATION---- This test was developed and its performa nce characteristics determined by [facility] in a manner co nsistent with CLIA requirements. This test has not bee n cleared or approved by the U.S. Food and Drug Admin istration. Glucose 9 0 - 15 mg/dL 05/10/2018 1:19 PM CDT [facility] Protein, U 128 (H) <26 mg/dL 05/10/2018 1:19 PM CDT [facility] Comment: ----ADDITIONAL INFORMATION---- On 02/13/2017 the total protein assay me thod changed resulting in approximately a 15% increase in prote in values. Protein/Osmolality 4.18 (H) <0.42 Ratio 05/10/2018 1:19 PM [facility] Comment: ----ADDITIONAL INFORMATION---- On 02/13/2017 the total protein assay me thod changed resulting in approximately a 15% increase in prote in values. Predicted 24 Hr 2453 mg/24 h 05/10/2018 1:19 PM [facility] Protein T [facility] Predicted Range 606-9931 mg/24 h 05/10/2018 1:19 PM [facility] CDT [facility] - [facility] S Hemoglobin, QL Trace (A) Negative 05/10/2018 1:42 PM [facility] CDT [facility] S Comment Micro done on 05/10/2018 1:38 PM [facility] <5 mL CDT [facility] S Specimen Anatomical Collection Method Collection Time Receive d Time (Source) Location / / Volume Laterality Urine 05/10/2018 12:23 05/10/2018 PM CDT 12:23 PM CDT Geraldo Spear M.D. LAB URINE ORDERABLES Performing Organization Address [facility] Phon e Number [facility]ATORIES - [address] [place] [address] 05 [facility] Bacterial Culture, Aerobic + Susc, Urine (05/10/2018 12:23 PM CDT) [facility] [employer] Method Time Signature Urine Culture No growth 05/11/2018 [facility] after 1 8:13 AM CDT LABORATORIES - [facility] . Specimen Anatomical Collection Method Collection Time Receive d Time (Source) Location / / Volume Laterality Urine (Urine) 05/10/2018 12:23 05/10/2018 2:24 PM CDT PM CDT Comment: Specimen Source Site: Urine Geraldo Spear M.D. LAB MICROBIOLOGY - GENERAL O RDERABLES Performing Organization Address City/[facility] Code Phon e Number [facility]IES - [address] [place] [phone] 05 [facility] Gram Stain, Urine (05/10/2018 12:21 PM CDT) [facility] Method Time Signature Source Midstream 05/10/2018 [facility] 12:21 PM CDT LABORATORIES [facility] Gram's Stain, CANCELED 05/10/2018 [facility] Screen, U 12:40 PM CDT [facility] - [facility] Comment: See confirmatory gram stain result ----ADDITIONAL INFORMATION---- This test has been modified from the man ufacturer's instructions. 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
--- OUTSIDE RECORDS SUMMARY | 2022-05-25 13:31 | XMS_ITS | Encounter Summary ---
:1960 Author Organization [facility] Address [address] [place] [address] Care Team Providers Name Role Phone Unavailable Primary Care Provider Unavailable Encounter Details Date Type Department Care Team Description 12/14/2016 Hospital Encounter HX NO MAPPING Social History [...] How often do you attend mormon or islam 1 to 4 times per [...] An Nicholas APRN, C.N.P., Michelle.NDaviP., M.S.N. [address] [place] [address] [phone] (Wo rk) 07/31/2022 Lab Laboratory Medicine Tony Rubalcava M. B., ChBurke, MDebra [address] [place] [address] [phone] (Wo rk) 07/31/2022 Lab Laboratory Medicine Tony Rubalcava M. B., ChBurke, Mukund [address] [place] [address] [phone] (Wo rk) 07/31/2022 Office Visit Transplant Tony Rubalcava M.B., Sydnie, MDebra [address] [place] [address] [phone] (Wo rk) 07/31/2022 Appointment Radiology Tony Rubalcava M.B., ChBurke, MDebra [address] [place] [address] [phone] (Wo rk) 08/01/2022 Office Visit Transplant Tony Rubalcava M.B., Sydnie, MDebra [address] [place] [address] [phone] (Wo rk) 08/01/2022 Clinical Support Transplant Tony Rubalcava M.B., ChBurke, MDebra [address] [place] [address] [phone] (Wo rk) documented as of this encounter Visit Diagnoses Not on filedocumented in this encounter
--- OUTSIDE RECORDS SUMMARY | 2022-05-25 13:32 | XMS_ITS | Encounter Summary ---
:1960 Author Organization [facility] Address [address] [place] [address] Care Team Providers Name Role Phone Unavailable Primary Care Provider Unavailable Encounter Details Date Type Department Care Team Description 09/02/2016 - Hospital Encounter HX RST UNIT 10-2 Lobo Ocampo, 09/06/2016 TRANSPLANT M.D. [address] [place] [address] Social History Tobacco Use Types Packs/Day Years [...] Sign Reading Time Taken Comments Blood Pressure 148/90 09/06/2016 12:52 NIBP - Value fr om PM OBSTETRICS NURSE [employer]. Pulse 58 09/06/2016 1:00 PM Value from artplus. OBSTETRICS NURSE Temperature - - Respiratory Rate 18 09/06/2016 12:52 Value from [facility] rtplus. PM OBSTETRICS NURSE Oxygen Saturation - - Inhaled Oxygen - - Concentration Weight 103 kg (226 lb 13.7 09/06/2016 12:46 Value from [facility]. oz) AM OBSTETRICS NURSE Height 163.2 cm (5' 4.25) 09/05/2016 6:56 AM OBSTETRICS NURSE Body Mass Index 38.63 09/05/2016 6:56 AM OBSTETRICS NURSE documented in this encounter Plan of Treatment Upcoming Encounters Date Type Specialty Care Team Description 06/01/2022 Telemedicine Pharmacy An Nicholas APRN, C.N.P., D.N.P., M.S.N. [address] [place] [address] [phone] (Wo rk) 07/31/2022 Lab Laboratory Medicine Tony Rubalcava M. B., Ch.B., M.Michelle. [address] [place] [address] [phone] (Wo rk) 07/31/2022 Lab Laboratory Medicine Tony Rubalcava M. B., ChDaviBDavi, MElvia. [address] [place] [address] [phone] (Wo rk) 07/31/2022 Office Visit Transplant Tony Rubalcava M.B., ChBurke, MDebra [address] [place] [address] [phone] (Wo rk) 07/31/2022 Appointment Radiology Tony Rubalcava M.B., Mukund Otoole [address] [place] [address] [phone] (Wo rk) 08/01/2022 Office Visit Transplant Tony Rubalcava M.B., Mukund Otoole [address] [place] [address] [phone] (Wo rk) 08/01/2022 Clinical Support Transplant Tony Rubalcava M.B., Mukund Otoole [address] [place] [address] [phone] (Wo rk) documented as of this encounter Procedures Procedure Name Priority Date/Time Associated Comments Diagnosis TACROLIMUS LEVEL, B Routine 09/08/2016 7:23 AM Re sults for this OBSTETRICS NURSE procedure are i n the results section. BUN (BLOOD UREA Routine 09/08/2016 7:23 AM Result s for this NITROGEN), S/P OBSTETRICS NURSE procedure are in the results section. POTASSIUM, S/P Routine 09/08/2016 7:23 AM Results for this OBSTETRICS NURSE procedure are i n the results section. CREATININE WITH EGFR, Routine 09/08/2016 7:23 AM Results for this S/P OBSTETRICS NURSE procedure are i n the results section. BICARBONATE, B/S/P Routine 09/08/2016 7:23 AM Res ults for this OBSTETRICS NURSE procedure are i n the results section. GLUCOSE POCT, B Routine 09/06/2016 6:21 AM Result s for this OBSTETRICS NURSE procedure are i n the results section. ELECTROLYTE (CHEM 4) Routine 09/06/2016 5:34 AM R esults for this PANEL, S/P OBSTETRICS NURSE procedure are i n the results section. TACROLIMUS LEVEL, B Routine 09/06/2016 5:34 AM Re sults for this OBSTETRICS NURSE procedure are i n the results section. CBC WITH Routine 09/06/2016 5:34 AM Results f or this DIFFERENTIAL, B OBSTETRICS NURSE procedure ar e in the results section. GLUCOSE POCT, B Routine 09/05/2016 10:23 Results for this PM OBSTETRICS NURSE procedure are i n the results section. GLUCOSE POCT, B Routine 09/05/2016 6:04 PM Result s for this OBSTETRICS NURSE procedure are i n the results section. RENAL PATHOLOGY Routine 09/05/2016 3:47 PM Result s for this OBSTETRICS NURSE procedure are i n the results section. US KIDNEY BIOPSY LEFT Routine 09/05/2016 3:30 PM Results for this OR RIGHT OBSTETRICS NURSE procedure are i n the results section. GLUCOSE POCT, B Routine 09/05/2016 12:48 Results for this PM OBSTETRICS NURSE procedure are i n the results section. GLUCOSE POCT, B Routine 09/05/2016 6:54 AM Result s for this OBSTETRICS NURSE procedure are i n the results section. ELECTROLYTE (CHEM 4) Routine 09/05/2016 5:28 AM R esults for this PANEL, S/P OBSTETRICS NURSE procedure are i n the results section. TACROLIMUS LEVEL, B Routine 09/05/2016 5:28 AM Re sults for this OBSTETRICS NURSE procedure are i n the results section. CBC WITH Routine 09/05/2016 5:28 AM Results f or this DIFFERENTIAL, B OBSTETRICS NURSE procedure ar e in the results section. GLUCOSE POCT, B Routine 09/04/2016 10:37 Results for this PM OBSTETRICS NURSE procedure are i n the results section. GLUCOSE POCT, B Routine 09/04/2016 6:25 PM Result s for this OBSTETRICS NURSE procedure are i n the results section. BK VIRUS PCR, QUANT, Routine 09/04/2016 2:30 PM R esults for this U OBSTETRICS NURSE procedure are i n the results section. GLUCOSE POCT, B Routine 09/04/2016 2:00 PM Result s for this OBSTETRICS NURSE procedure are i n the results section. ELECTROLYTE (CHEM 4) Routine 09/04/2016 5:16 AM R esults for this PANEL, S/P OBSTETRICS NURSE procedure are i n the results section. TACROLIMUS LEVEL, B Routine 09/04/2016 5:15 AM Re sults for this OBSTETRICS NURSE procedure are i n the results section. ELECTROLYTE (CHEM 4) Routine 09/03/2016 5:39 AM R esults for this PANEL, S/P OBSTETRICS NURSE procedure are i n the results section. HLA CLASS II SAB Routine 09/03/2016 5:39 AM Resul ts for this ANTIBODY SCREEN OBSTETRICS NURSE procedure ar e in the results section. HLA CLASS I SAB Routine 09/03/2016 5:39 AM Result s for this ANTIBODY SCREEN OBSTETRICS NURSE procedure ar e in the results section. TACROLIMUS LEVEL, B Routine 09/03/2016 5:39 AM Re sults for this OBSTETRICS NURSE procedure are i n the results section. CBC WITH Routine 09/03/2016 5:39 AM Results f or this DIFFERENTIAL, B OBSTETRICS NURSE procedure ar e in the results section. PHOSPHORUS Routine 09/03/2016 5:39 AM Results f or this (INORGANIC), S OBSTETRICS NURSE procedure are in the results section. MAGNESIUM, S Routine 09/03/2016 5:39 AM Results f or this OBSTETRICS NURSE procedure are i n the results section. CALCIUM, TOT, S/P Routine 09/03/2016 5:39 AM Resu lts for this OBSTETRICS NURSE procedure are i n the results section. GLUCOSE POCT, B Routine 09/02/2016 10:38 Results for this PM OBSTETRICS NURSE procedure are i n the results section. GLUCOSE POCT, B Routine 09/02/2016 5:59 PM Result s for this OBSTETRICS NURSE procedure are i n the results section. BK VIRUS PCR, QUANT, Routine 09/02/2016 10:20 Res ults for this P AM OBSTETRICS NURSE procedure are i n the results section. CBC WITHOUT Routine 09/02/2016 10:20 Results for this DIFFERENTIAL, B AM OBSTETRICS NURSE procedure ar e in the results section. ELECTROLYTE (CHEM 4) Routine 09/02/2016 5:40 AM R esults for this PANEL, S/P OBSTETRICS NURSE procedure are i n the results section. TACROLIMUS LEVEL, B Routine 09/02/2016 5:40 AM Re sults for this OBSTETRICS NURSE procedure are i n the results section. CBC WITH Routine 09/02/2016 5:40 AM Results f or this DIFFERENTIAL, B OBSTETRICS NURSE procedure ar e in the results section. PHOSPHORUS Routine 09/02/2016 5:40 AM Results f or this (INORGANIC), S OBSTETRICS NURSE procedure are in the results section. MAGNESIUM, S Routine 09/02/2016 5:40 AM Results f or this OBSTETRICS NURSE procedure are i n the results section. CALCIUM, TOT, S/P Routine 09/02/2016 5:40 AM Resu lts for this OBSTETRICS NURSE procedure are i n the results section. V&IRAD VASCULAR & Routine 09/01/2016 3:40 PM Resu lts for this INTERVENTION OBSTETRICS NURSE procedure are i n the results section. HX MICROBIOLOGY Routine 09/01/2016 2:24 PM Result s for this REPORTS OBSTETRICS NURSE procedure are i n the results section. documented in this encounter Results Tacrolimus Level (09/08/2016 7:23 AM OBSTETRICS NURSE) Analysis Performed At Patho logist Time Signature Tacrolimus Time . [facility] of Last Dose [facility] Comment: Not Specified Tacrolimus Blood Dose, mg . MG [facility] Comment: Not Specified ? ADDITIONAL INFORMATIO N ? Target steady-state trough concentration s vary depending on the type of ? transplant, concomitant immunosuppressio n, clinical/institutional protocols, ? and time post-transplant. Results should be interpreted in conjunction with ? this clinical information and any physic al signs/symptoms of ? rejection/toxicity. ? Testing performed by Liquid Chromatograp hy-Tandem Mass Spectrometry ? (LC-MS/MS). ? This test was developed and its performa nce characteristics determined by ? [facility] in a manner consistent with CLIA requirements. This test has not ? been cleared or approved by the [place] d and Drug Administration. ? Tacrolimus, B 8.6 5.0-15.0 (Trough) NG/ML [facility] [place] Tacrolimus Blood Date of . [facility] - Last Dose [facility] Comment: Not Specified Specimen Anatomical Collection Method Collection Time Receive d Time (Source) Location / / Volume Laterality 09/08/2016 7:23 AM 7 7:23 OBSTETRICS NURSE AM OBSTETRICS NURSE Denise Prather M.D. LAB BLOOD NON ADD-ON Performing Organization Address City/[facility]/ZIP Code Phon e Number [facility] LABORATORIES - [address] [place], [place] [address] [facility] (ABNORMAL) BUN (Blood Urea Nitrogen) (09/08/2016 7:23 AM OBSTETRICS NURSE) Analysis Performed At Patho logis Time Signature BUN (Blood 45 (H) 6 - 21 [facility] Urea MG/DL LABORATORIES - Nitrogen), S [facility] Specimen Anatomical Collection Method Collection Time Receive d Time (Source) Location / / Volume Laterality 09/08/2016 7:23 AM 7 7:23 OBSTETRICS NURSE AM OBSTETRICS NURSE Denise Prather M.D. LAB BLOOD ADD-ON Performing Organization Address City/[facility]/ZIP Code Phon e Number [facility] LABORATORIES - [address] [place], [place] [address] [facility] Potassium (09/08/2016 7:23 AM OBSTETRICS NURSE) P athologist Signature Potassium, S 4.0 3.6 - 5.2 [facility] MMOL/L LABORATORIES - [facility] Specimen Anatomical Collection Method Collection Time Receive d Time (Source) Location / / Volume Laterality 09/08/2016 7:23 AM 7 7:23 OBSTETRICS NURSE AM OBSTETRICS NURSE Denise Prather M.D. LAB BLOOD ADD-ON Performing Organization Address City/State/ZIP Code Phon e Number [facility] LABORATORIES - [address] [place], [place] [address] [facility] Bicarbonate (09/08/2016 7:23 AM OBSTETRICS NURSE) P athologist [facility] HX 24 - 29 [facility] Bicarbonate, MMOL/L LABORATORIES - P/S [facility] Specimen Anatomical Collection Method Collection Time Receive d Time (Source) Location / / Volume Laterality 09/08/2016 7:23 AM 7 7:23 OBSTETRICS NURSE AM OBSTETRICS NURSE Denise Prather M.D. LAB BLOOD ADD-ON Performing Organization Address City/State/ZIP Code Phon e Number [facility] LABORATORIES - [address] [place], [place] [address] [facility] (ABNORMAL) Creatinine with Estimated GFR (MDRD) (09/08/2016 7:23 AM OBSTETRICS NURSE) [facility] gist Method Time Signature eGFR-Black/Afri 21 (L) >60 [facility] can [place] ML/MIN/BS LABORATORIES - A [facility] Creatinine 2.8 (H) 0.6 - 1.1 [facility] MG/DL LABORATORIES - [facility] eGFR 17 (L) >60 [facility] Non-Black/Afric ML/MIN/BS LABORATORIES - an [place] A [facility] Specimen Anatomical Collection Method Collection Time Receive d Time (Source) Location / / Volume Laterality 09/08/2016 7:23 AM 7 7:23 OBSTETRICS NURSE AM OBSTETRICS NURSE Denise Prather M.D. LAB BLOOD ADD-ON Performing Organization Address City/State/ZIP Code Phon e Number [facility] LABORATORIES - [address] [place], [place] [address] [facility] Glucose, POCT (09/06/2016 6:21 AM OBSTETRICS NURSE) Patholo gist Method Time Signature Last Intake > 4 hours [facility] - [facility] Glucose, 93 70 - 140 [facility] POCT, B MG/DL LABORATORIES - [facility] Sample Site, Capillary [facility] Blood Gas, LABORATORIES - POCT [facility] Specimen Anatomical Collection Method Collection Time Receive d Time (Source) Location / / Volume Laterality 09/06/2016 6:21 AM 7 6:21 OBSTETRICS NURSE AM OBSTETRICS NURSE Historical Provider LAB POCT ORDERABLES-MANUAL Performing Organization Address City/State/ZIP Code Phon e Number [facility] LABORATORIES - [address] [place], [place] [address] [facility] Tacrolimus Level (09/06/2016 5:34 AM OBSTETRICS NURSE) Analysis Performed At [facility] logist Time Signature Tacrolimus, B 8.9 5.0-15.0 [facility] (Trough) LABORATORIES - NG/ML [facility] Tacrolimus . [facility] Blood Date of LABORATORIES - Last Dose [facility] Comment: Not Specified Tacrolimus Time of Last Dose . [facility] Comment: Not Specified Tacrolimus Blood Dose, mg . MG [facility] LABORATORIES - [facility] Comment: Not Specified ? ADDITIONAL INFORMATIO N ? Target steady-state trough concentration s vary depending on the type of ? transplant, concomitant immunosuppressio n, clinical/institutional protocols, ? and time post-transplant. Results should be interpreted in conjunction with ? this clinical information and any physic al signs/symptoms of ? rejection/toxicity. ? Testing performed by Liquid Chromatograp hy-Tandem Mass Spectrometry ? (LC-MS/MS). ? This test was developed and its performa nce characteristics determined by ? [facility] in a manner consistent with CLIA requirements. This test has not ? been cleared or approved by the [place] d and Drug Administration. ? Specimen Anatomical Collection Method Collection Time Receive d Time (Source) Location / / Volume Laterality 09/06/2016 5:34 AM 7 5:34 OBSTETRICS NURSE AM OBSTETRICS NURSE Yunior Andrews M.D., Ph.D. LAB BLOOD NON ADD -ON Performing Organization Address City/State/ZIP Code Phon e Number [facility] LABORATORIES - [address] [place], [place] [address] [facility] (ABNORMAL) Electrolyte (Chem 4) Panel (09/06/2016 5:34 AM OBSTETRICS NURSE) [facility] Method Time Signature Chloride, S 103 98 - 107 [facility] MMOL/L LABORATORIES [facility] HX Bicarbonate, 24 22 - 29 [facility] P/S MMOL/L LABORATORIES [facility] Creatinine 2.6 (H) 0.6 - 1.1 [facility] MG/DL LABORATORIES - [facility] eGFR 19 (L) >60 [facility] Non-Black/Afric ML/MIN/BS LABORATORIES - [place] A [facility] Anion Gap 14 7 - 15 [facility] Glucose, S 93 70 - 140 [facility] MG/DL LABORATORIES - [facility] Sodium, S 141 135 - 145 [facility] MMOL/L LABORATORIES - [facility] Potassium, S 3.7 3.6 - 5.2 [facility] MMOL/L LABORATORIES [facility] eGFR-Black/Afri 23 (L) >60 [facility] can [place] ML/MIN/BS LABORATORIES - [facility] BUN (Blood Urea 38 (H) 6 - 21 [facility] Nitrogen), S MG/DL [facility] - [facility] Specimen Anatomical Collection Method Collection Time Receive d Time (Source) Location / / Volume Laterality 09/06/2016 5:34 AM 7 5:34 OBSTETRICS NURSE AM OBSTETRICS NURSE Yunior Andrews M.D., Ph.D. LAB BLOOD ADD-ON Performing Organization Address City/State/ZIP Code Phon e Number [facility] LABORATORIES - [address] [place] [address] [address] [facility] (ABNORMAL) CBC with Differential (09/06/2016 5:34 AM OBSTETRICS NURSE) [facility] Method Time Signature Hemoglobin 11.7 (L) 12.0 - [facility] 15.5 G/DL [facility] - [facility] Hematocrit 38.9 34.9 - [facility] 44.5 % [facility] RBC Distrib 16.1 (H) 11.9 - [facility] Width 15.5 % [facility] Platelet Count 155 150 - 450 [facility] X10(9)/L LABORATORIES [facility] Comment: Indirect method performed. Lymphocytes 2.03 0.90 - 2.90 X10(9)/L [facility] LAB[facility] - [facility] Monocytes 0.44 0.30 - 0.90 X10(9)/L [facility] ER IC LABORATORIES [facility] Erythrocytes 4.07 3.90 - 5.03 X10(12)/L [facility] MCV 95.6 81.6 - 98.3 [place] [facility] LAB ORATORIES [facility] Leukocytes 7.2 3.5 - 10.5 X10(9)/L [facility] ER IC [facility] Neutrophils 4.51 1.70 - 7.00 X10(9)/L [facility] Eosinophils 0.23 0.05 - 0.50 X10(9)/L [facility] Basophils 0.03 0.00 - 0.30 X10(9)/L [facility] ER IC [facility] Specimen Anatomical Collection Method Collection Time Receive d Time (Source) Location / / Volume Laterality 09/06/2016 5:34 AM 7 5:34 OBSTETRICS NURSE AM OBSTETRICS NURSE Yunior Andrews M.D., Ph.D. LAB BLOOD ADD-ON Performing Organization Address City/[facility] Phon e Number [facility] LABORATORIES - [address] [place] [address] [address] [facility] Glucose, POCT (09/05/2016 10:23 PM OBSTETRICS NURSE) P athologist Signature Glucose, POCT, 109 70 - 140 [facility] B MG/DL [facility] Specimen Anatomical Collection Method Collection Time Receive d Time (Source) Location / / Volume Laterality 09/05/2016 10:23 09/05/2016 PM OBSTETRICS NURSE 10:23 PM OBSTETRICS NURSE Historical Provider LAB POCT ORDERABLES-MANUAL Performing Organization Address City/[facility] Phon e Number [facility] LABORATORIES - [address] [place] [address] [address] [facility] (ABNORMAL) Glucose, POCT (09/05/2016 6:04 PM OBSTETRICS NURSE) Patholo gist Method Time Signature Glucose, POCT, 194 (H) 70 - 140 [facility] B MG/DL [facility] Last Intake 3-4 hours [facility] Specimen Anatomical Collection Method Collection Time Receive d Time (Source) Location / / Volume Laterality 09/05/2016 6:04 PM 7 6:04 OBSTETRICS NURSE PM OBSTETRICS NURSE Historical Provider LAB POCT ORDERABLES-MANUAL Performing Organization Address City/State/ZIP Code Phon e Number [facility] - [address] [place], [place] [address] [facility] Renal Pathology (09/05/2016 3:47 PM OBSTETRICS NURSE) Specimen Anatomical Collection Method Collection Time Receive d Time (Source) Location / / Volume Laterality 09/05/2016 3:47 PM 7 3:47 OBSTETRICS NURSE PM OBSTETRICS NURSE Narrative [facility] - 09/05/2016 3:47 PM OBSTETRICS NURSE ??09/05/2016 Renal Biopsy ([id number]) ??REVISED REPORT (Addendum/Procedure in cluded) ?? Requested By: ??Darwin Sweeney M.D. 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 ??3) Tubular atrophy and interstitial fibrosis, mode rate. ??4) Arteriosclerosis, moderately severe. ?? SYNOPTIC REPORT: ?? Protocol biopsy: ??No ?? Adequacy (on LM): ? Total number of glomeruli: ??1 5 ? Number of globally sclerotic g lomeruli: ??2 ? Number of arteries (with elast ica): ??4 ? 50% cortex ?50 % medulla ?? [place]: ??g1, i0, t0, v0, ah0; cg2, ci2, ct2, ti2, cv2, mm3, ptc2 ?? Additional stains/studies performed ?BK LIZA/IHC: ??No ?Other stains: ??No ?(besides H&E, PAS, Schultz, & Trichrome) ?Full immunofluorescence pane l: ??Yes ?C4d (IF/IHC): ??No ?Electron microscopy: ??Yes ?? 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 No ? DIAGNOSIS COMMENT: ?The biopsy is adequate for inte rpretation. ?This renal biopsy shows multipl e findings. ??1) A single glomerulus shows segmental sclerosis wi th endocapillary foam cells and podocyte hyperplasia overlying the segmentally sclerosed josé antonio. ?? 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 ??3) There are moderate to moder ately extensive chronic changes present involving all component s of the parenchyma including focal global glomerulosclerosis, modera tely extensive tubular atrophy and interstitial fibrosis, and moderately severe vascular sclerosis. ??The biopsy shows moderate interstitial inflammation. ?? The interstitial inflammation is noted predominantly in areas of tubular atrophy and interstitial fibros is. ??The peritubular capillaries are negative for C4d. ?This is a 56-year-old woman sta tus post kidney transplant in 2008. ??The patient has a history of ob structive uropathy. ??The patient also has hypertension and prote inuria. ??Urinary protein is approximately 2 g/24 hours. 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 ??Serum creatinine is 2.6 mg/dL. 09/06/2016 16:31 Interpreted by: Kvng Aguillon M.D., Ph.D. [phone] Report electronically signed by Kvng Aguillon M.D., Ph.D. Transcribed by: jesus 09/06/2016 12:51:06 SPECIMEN DESCRIPTION: A:Renal Needle Biopsy ?? TISSUE DESCRIPTION: Light Microscopy: ??[facility]: ??Two piece(s) of tissue measuring 1.6 x 0.04 cm and 1.9 x 0.04 cm (both cores cut in two). ??One piece(s) measu ring 0.3 x 0.04 cm is taken from the formalin specimen for electron microscopy. ??Submitted in total in block(s) A1. (WFL) ?? Electron Microscopy: ?? One piece(s) me asuring is taken from the formalin specimen for electron microsco py. (WFL) ?? Immunofluorescence: ??Received in [facility] for immunofluorescence: ?? One piece(s) of tissue measuring 1.6 x 0.04 cm. Submitted in total for immunofluorescence. () ? MATERIAL RECEIVED: 1 - 10% formalin wet tissue 1 - [facility] wet tissue ?? SLIDE DISPOSITION: ? MICROSCOPIC DESCRIPTION: ?LIGHT MICROSCOPY: ??Tissue sect ions are stained with H&E, PAS, Flora trichrome and Schultz methenamine silver to aid in the morphological interpretation. ??The clemencia ple submitted for light microscopy contains four cores. ??Two c ores contain only renal medulla. ??The remaining two cores cont ain renal cortex. ??There are up to 15 glomeruli present. ??Two glome ruli are globally sclerosed. ?? One glomerulus shows segmental sclerosi s with segmental consolidation of the capillary josé antonio, e ndocapillary foam cells, and podocyte hyperplasia overlying the segm entally sclerosed josé antonio. ?? Protein reabsorption granules are noted in the podocytes. ??Four glomeruli also show ischemic changes wi th thickening and wrinkling of the capillary gibson. ??The glomeruli also show mild to moderate increase in mesangial matrix. ??The cap illary gibson are thickened. ?? Some of the capillary loops also show d ouble contours along the capillary gibson. ??The glomeruli do not show any evidence of crescent formation, fibrinoid necrosis, or throm bosis. ??Mild glomerulitis is noted. ??Basement membrane spikes or pi nholes are not present along the capillary gibson. ?Tubules and interstitium: ??Tub ules contain protein reabsorption granules. ??There is moderate tubular a trophy and interstitial fibrosis present. ??Tubules also show d egenerative changes with distention and flattening of the lining of the epithelium. ??There is patchy interstitial inflammation presen t. ??Infiltrates contain mostly mononuclear cells and are noted in areas of tubular atrophy and interstitial fibrosis. ??Peritubula r capillaritis is also present. ??Approximately 40% of the clemencia ple shows tubular atrophy and interstitial fibrosis. ?Vessels: ??Arteries show modera te sclerosis of the intima. ?? There is no evidence of thrombosis, emb gema, or arteritis. ?IMMUNOFLUORESCENCE HISTOLOGY: ? ?There are five glomeruli present. ??Two glomeruli are globally s clerosed. ??The glomeruli are negative for IgA, IgG, IgM, C1q, C3, al bumin, fibrinogen, kappa and lambda light chains. ??The glomerular c apillaries and peritubular capillaries are negative for C4d. ?ADDENDUM: ?ELECTRON MICROSCOPY: ??Three gaona rvey sections are examined. ?? There are only two glomeruli present. ? ?None of the glomeruli are globally sclerosed. ??Ultrastructural e xamination of the glomeruli shows only focal effacement of the foot processes of the visceral epithelial cells. ??Some of the capilla ry loops show subendothelial expansion with fluffy granular material and new basement membrane formation resulting in double contours. ??Electron dense deposits are not present along the capillary gibson. ??The glomerular basement membranes are thickened. ??The endothel ial cells show loss of fenestrations, they do not contain tubu loreticular inclusions. ??The mesangium shows mild increase in matrix material, it does not contain electron dense deposits. ??The peritubular capillaries do not show multilayering of the basement memb ranes. 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 ??3) ?? Tubular atrophy and interstitial fibros is, moderate. ??4) ?? Arteriosclerosis, moderately severe. ?? Transcribed by: ??jaelizabeth ??09/11/2016 13:26 :38 ? Signed by Kvng Aguillon M.D., Ph.D. 14:14:49 ? Procedure Note 11/10/2017 09/05/2016 Renal Biopsy ([id number]) REVISED REPORT (Addendum/Procedure incl uded) Requested By: Darwin Sweeney M.D. 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 3) Tubular atrophy and interstitial fibrosis, mode rate. 4) Arteriosclerosis, moderately severe. 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 This renal biopsy shows multiple findin gs. 1) A single glomerulus shows segmental sclerosis wi th endocapillary foam cells and podocyte hyperplasia overlying the segmentally sclerosed josé antonio. 2) The biopsy also shows features of a transplant glomerulopathy, some of the capillary loops show double contours along the capillary gibson. 3) There are moderate to moderat maty extensive chronic changes present involving all component s of the parenchyma including focal global glomerulosclerosis, modera tely extensive tubular atrophy and interstitial fibrosis, and moderately severe vascular sclerosis. The biopsy shows moderate in terstitial inflammation. The interstitial inflammation is noted predominantly in areas of tubular atrophy and interstitial fibros is. The peritubular capillaries are negative for C4d. This is a 56-year-old woman status post kidney transplant in 2008. The patient has a history of obst ructive uropathy. The patient also has hypertension and prote inuria. Urinary protein is approximately 2 g/24 hours. 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 Serum creatinine is 2.6 mg/dL. 09/06/2016 16:31 Interpreted by: Kvng Aguillon M.D., Ph.D. [phone] Report electronically signed by Kvng Aguillon M.D., Ph.D. Transcribed by: jesus 09/06/2016 12:51:06 SPECIMEN DESCRIPTION: A:Renal Needle Biopsy TISSUE DESCRIPTION: Light Microscopy: Received in formalin for light microscopy: Two piece(s) of tissue measuring 1.6 x 0.04 cm and 1.9 x 0.04 cm (both cores cut in two). One piece(s) measuri ng 0.3 x 0.04 cm is taken from the formalin specimen for electron microscopy. Submitted in total in block(s) A1. (WFL) Electron Microscopy: One piece(s) measu ring is taken from the formalin specimen for electron microsco py. (WFL) Immunofluorescence: [facility] immunofluorescence: One piece(s) of tissue measuring 1.6 x 0.04 cm. Submitted in total for immunofluorescence. () MATERIAL RECEIVED: 1 - 10% formalin wet tissue 1 - Manohar wet tissue SLIDE DISPOSITION: MICROSCOPIC DESCRIPTION: LIGHT MICROSCOPY: Tissue sections are s tained with H&E, PAS, Flora trichrome and Schultz methenamine silver to aid in the morphological interpretation. The sampl e submitted for light microscopy contains four cores. Two cor es contain only renal medulla. The remaining two cores contai n renal cortex. There are up to 15 glomeruli present. Two glomeru li are globally sclerosed. One glomerulus shows segmental sclerosi s with segmental consolidation of the capillary josé antonio, e ndocapillary foam cells, and podocyte hyperplasia overlying the segm entally sclerosed josé antonio. Protein reabsorption granules are noted in the podocytes. Four glomeruli also show ischemic changes wi th thickening and wrinkling of the capillary gibson. The glomeruli a lso show mild to moderate increase in mesangial matrix. The capil daniel gibson are thickened. Some of the capillary loops also show d ouble contours along the capillary gibson. The glomeruli do not s how any evidence of crescent formation, fibrinoid necrosis, or throm bosis. Mild glomerulitis is noted. Basement membrane spikes or pinh oles are not present along the capillary gibson. Tubules and interstitium: Tubules conta in protein reabsorption granules. There is moderate tubular atr ophy and interstitial fibrosis present. Tubules also show deg enerative changes with distention and flattening of the lining of the epithelium. There is patchy interstitial inflammation presen t. Infiltrates contain mostly mononuclear cells and are noted in areas of tubular atrophy and interstitial fibrosis. Peritubular capillaritis is also present. Approximately 40% of the sampl e shows tubular atrophy and interstitial fibrosis. Vessels: Arteries show moderate scleros is of the intima. There is no evidence of thrombosis, emb gema, or arteritis. IMMUNOFLUORESCENCE HISTOLOGY: There are five glomeruli present. Two glomeruli are globally scl erosed. The glomeruli are negative for IgA, IgG, IgM, C1q, C3, al bumin, fibrinogen, kappa and lambda light chains. The glomerular cap illaries and peritubular capillaries are negative for C4d. ADDENDUM: ELECTRON MICROSCOPY: Three survey secti ons are examined. There are only two glomeruli present. N one of the glomeruli are globally sclerosed. Ultrastructural exa mination of the glomeruli shows only focal effacement of the foot processes of the visceral epithelial cells. Some of the capillary loops show subendothelial expansion with fluffy granular material and new basement membrane formation resulting in double contours. Electron dense deposits are not present along the capillary gibson. The glomerular basement membranes are thickened. The endothelia l cells show loss of fenestrations, they do not contain tubu loreticular inclusions. The mesangium shows mild increase in matrix material, it does not contain electron dense deposits. The pe ritubular capillaries do not show multilayering of the basement memb ranes. Impression: Kidney, transplant, needle biopsy: 1) Focal and segmental glomerulosclerosis. 2) Transp lant glomerulopathy. 3) Tubular atrophy and interstitial fibros is, moderate. 4) Arteriosclerosis, moderately severe. Transcribed by: eamon 09/11/2016 13:26:38 Signed by Kvng Aguillon M.D., Ph.D. 14:14:49 Darwin Sweeney M.D. LAB PATH RENAL ORDERABLES Performing Organization Address City/State/ZIP Code Phon e Number [facility] - [address] [place] [address] [address] [facility] US Kidney Biopsy Left or Right (09/05/2016 3:30 PM OBSTETRICS NURSE) Anatomical Region Laterality Modality Abdomen, Renal N/A Ultrasound Specimen (Source) Anatomical Collection Method Collection Time Re ceived Time Location / / Volume Laterality 09/05/2016 3:30 PM OBSTETRICS NURSE Narrative 09/05/2016 3:36 PM OBSTETRICS NURSE 05-Sep-2016 15:30:00 ??Exam: US Biopsy Renal Indications: [id number]; 10-222; Kidney T ransplant Biopsy; rising Cr with proteinuria; right; allograft kidney ORIGINAL REPORT - 05-Sep-2016 15:36:00 EXAM: ??US Biopsy Renal Procedure: ??Transplant kidney biopsy Technique: ??Sterile; 1% lidocaine for l ocal anesthesia. Site: ??Right lower quadrant transplante d kidney Number of passes: ??3 Needle size: ??18-gauge core biopsy freya ce through a 17-gauge introducer Complications: ??None immediately presen t. Pathology: ??Pending. PREPROCEDURE: ??Patient seen, evaluated, and history reviewed. Discussed risks, benefits, alternatives for procedure, and obtained informed consent. Patient understands information and questions answere d. Immediately prior to starting the pro cedure, in the presence of the assisting personnel, procedural pause was conducted to verify correct patient identity and verification of procedure to be performe d, and as applicable, correct side and s ite, correct patient position, availability of implants, special equipment, or special requirements, and all image and specimen identification data. The roles and responsibilities of care team members, residents, and fellows were discussed. Electronically signed by: ?? Whitney Mo ?? [phone] 05-Sep-2016 15:36 Procedure Note Jose Mo M.D. - 11/14/2017Formatti ng of this note might be different from the original. 05-Sep-2016 15:30:00 Exam: US Biopsy Jack al Indications: [id number]; 10-222; Kidney T ransplant Biopsy; rising Cr with proteinuria; right; allograft kidney ORIGINAL REPORT - 05-Sep-2016 15:36:00 EXAM: US Biopsy Renal Procedure: Transplant kidney biopsy Technique: Sterile; 1% lidocaine for loc al anesthesia. Site: Right lower quadrant transplanted kidney Number of passes: 3 Needle size: 18-gauge core biopsy device through a 17-gauge introducer Complications: None immediately present. Pathology: Pending. PREPROCEDURE: Patient seen, evaluated, a nd history reviewed. Discussed risks, benefits, alternatives for procedure, and obtained informed consent. Patient understands information and questions answered. Immediately prior to starting the proced ure, in the presence of the assisting personnel, procedural pause was conducted to verify correct patient identity and verification of procedure to be performed, and as applicable, correct side and site, corre ct patient position, availability of implants, special equipment, or special requirements, and all image and specimen identification data. The roles and responsibilities of care team members, residents, and fellows were dis cussed. Electronically signed by: Whitney Mo MD [phone] 05-Sep-2016 15:36 Nehemias Felipe M.D. IMG US PROCEDURES (ABNORMAL) Glucose, POCT (09/05/2016 12:48 PM OBSTETRICS NURSE) Patholo gist Method Time Signature Last Intake NPO [facility] - [facility] Glucose, 196 (H) 70 - 140 [facility] POCT, B MG/DL LABORATORIES - [facility] Sample Site, Capillary [facility] Blood Gas, LABORATORIES - POCT [facility] Specimen Anatomical Collection Method Collection Time Receive d Time (Source) Location / / Volume Laterality 09/05/2016 12:48 09/05/2016 PM OBSTETRICS NURSE 12:48 PM OBSTETRICS NURSE Historical Provider LAB POCT ORDERABLES-MANUAL Performing Organization Address City/State/ZIP Code Phon e Number [facility] - [address] [place], [place] [address] [address] [facility] Glucose, POCT (09/05/2016 6:54 AM OBSTETRICS NURSE) P athologist Signature Glucose, POCT, 97 70 - 140 [facility] B MG/DL LABORATORIES - [facility] Specimen Anatomical Collection Method Collection Time Receive d Time (Source) Location / / Volume Laterality 09/05/2016 6:54 AM 7 6:54 OBSTETRICS NURSE AM OBSTETRICS NURSE Historical Provider LAB POCT ORDERABLES-MANUAL Performing Organization Address City/State/ZIP Code Phon e Number [facility] - [address] [place], [place] [address] [address] [facility] Tacrolimus Level (09/05/2016 5:28 AM OBSTETRICS NURSE) Analysis Performed At Patho logist Time Signature Tacrolimus, B 5.7 5.0-15.0 [facility] (Trough) LABORATORIES - NG/ML [facility] Tacrolimus . [facility] Blood Date of LABORATORIES - Last Dose [facility] Comment: Not Specified Tacrolimus Time of Last Dose . [facility] Comment: Not Specified Tacrolimus Blood Dose, mg . MG [facility] - [facility] Comment: Not Specified ? ADDITIONAL INFORMATIO N ? Target steady-state trough concentration s vary depending on the type of ? transplant, concomitant immunosuppressio n, clinical/institutional protocols, ? and time post-transplant. Results should be interpreted in conjunction with ? this clinical information and any physic al signs/symptoms of ? rejection/toxicity. ? Testing performed by Liquid Chromatograp hy-Tandem Mass Spectrometry ? (LC-MS/MS). ? This test was developed and its performa nce characteristics determined by ? [facility] in a manner consistent with CLIA requirements. This test has not ? been cleared or approved by the [place] d and Drug Administration. ? Specimen Anatomical Collection Method Collection Time Receive d Time (Source) Location / / Volume Laterality 09/05/2016 5:28 AM 7 5:28 OBSTETRICS NURSE AM OBSTETRICS NURSE Yunior Andrews M.D., Ph.D. LAB BLOOD NON ADD -ON Performing Organization Address City/State/ZIP Code Phon e Number [facility] - [address] [place], [place] [address] [facility] (ABNORMAL) CBC with Differential (09/05/2016 5:28 AM OBSTETRICS NURSE) [facility] gist Method Time Signature Erythrocytes 3.80 (L) 3.90 - [facility] 5.03 LABORATORIES - X10(12)/L [facility] MCV 86.3 81.6 - [facility] 98.3 FL LABORATORIES - [facility] Leukocytes 7.3 3.5 - [facility] 10.5 LABORATORIES - X10(9)/L [facility] Neutrophils 4.49 1.70 - [facility] 7.00 LABORATORIES - X10(9)/L [facility] Eosinophils 0.30 0.05 - [facility] 0.50 LABORATORIES - X10(9)/L [facility] Basophils 0.02 0.00 - [facility] 0.30 LABORATORIES - X10(9)/L [facility] Hemoglobin 10.5 (L) 12.0 - [facility] 15.5 G/DL LABORATORIES - [facility] Hematocrit 32.8 (L) 34.9 - [facility] 44.5 % LABORATORIES [facility] RBC Distrib 14.9 11.9 - [facility] Width 15.5 % [facility] - [facility] Platelet Count 138 (L) 150 - 450 [facility] X10(9)/L [facility] Lymphocytes 1.84 0.90 - [facility] 2.90 LABORATORIES - X10(9)/L [facility] Monocytes 0.69 0.30 - [facility] 0.90 LABORATORIES - X10(9)/L [facility] Specimen Anatomical Collection Method Collection Time Receive d Time (Source) Location / / Volume Laterality 09/05/2016 5:28 AM 7 5:28 OBSTETRICS NURSE AM OBSTETRICS NURSE Yunior Andrews M.D., Ph.D. LAB BLOOD ADD-ON Performing Organization Address City/State/ZIP Code Phon e Number [facility] - [address] [place], [place] [address] [facility] (ABNORMAL) Electrolyte (Chem 4) Panel (09/05/2016 5:28 AM OBSTETRICS NURSE) [facility] gist Method Time Signature Sodium, S 141 135 - 145 [facility] MMOL/L LABORATORIES - [facility] Potassium, S 3.6 3.6 - 5.2 [facility] MMOL/L LABORATORIES - [facility] Creatinine 2.7 (H) 0.6 - 1.1 [facility] MG/DL LABORATORIES - [facility] eGFR 18 (L) >60 [facility] Non-Black/Afric ML/MIN/BS LABORATORIES - an [place] A [facility] Anion Gap 13 7 - 15 [facility]ORATORIES [facility] Glucose, S 92 70 - 140 [facility] MG/DL LAB[facility]ATORIES - [facility] Chloride, S 104 98 - 107 [facility] MMOL/L LABORATORIES - [facility] HX Bicarbonate, 24 22 - 29 [facility] P/S MMOL/L LABORATORIES - [facility] eGFR-Black/Afri 22 (L) >60 [facility] can [place] ML/MIN/BS LABORATORIES - A [facility] BUN (Blood Urea 41 (H) 6 - 21 [facility] Nitrogen), S MG/DL LABORATORIES - [facility] Specimen Anatomical Collection Method Collection Time Receive d Time (Source) Location / / Volume Laterality 09/05/2016 5:28 AM 7 5:28 OBSTETRICS NURSE AM OBSTETRICS NURSE Yunior Andrews M.D., Ph.D. LAB BLOOD ADD-ON Performing Organization Address City/[facility]/ZIP [facility] [place] [facility] - [address] (ABNORMAL) Glucose, POCT (09/04/2016 10:37 PM OBSTETRICS NURSE) [facility] Method Time Signature Glucose, POCT, 153 (H) 70 - 140 [facility] B MG/DL [facility] - [facility] Last Intake 1-2 hours [facility] Specimen Anatomical Collection Method Collection Time Receive d Time (Source) Location / / Volume Laterality 09/04/2016 10:37 09/04/2016 PM OBSTETRICS NURSE 10:37 PM OBSTETRICS NURSE Historical Provider LAB POCT ORDERABLES-MANUAL Performing Organization Address City/[facility]/ZIP Code Phon e Number [facility] - [address] (ABNORMAL) Glucose, POCT (09/04/2016 6:25 PM OBSTETRICS NURSE) [facility] Method Time Signature Glucose, 268 (H) 70 - 140 [facility] POCT, B MG/DL LABORATORIES - [facility] Sample Site, Capillary [facility] Blood Gas, LABORATORIES - POCT [facility] Specimen Anatomical Collection Method Collection Time Receive d Time (Source) Location / / Volume Laterality 09/04/2016 6:25 PM 7 6:25 OBSTETRICS NURSE PM OBSTETRICS NURSE Historical Provider LAB POCT ORDERABLES-MANUAL Performing Organization Address City/[facility]/ZIP Code Phon e Number [facility] - [address] BK Virus, Molecular Detection, Quantitative, PCR, Urine (09/04/2016 2:30 PM OBSTETRICS NURSE) [facility] gist Method Time Signature BK Virus PCR, None None [facility] Comment: ? ADDITIONAL INFORMATIO N ? This test was developed and its performa nce characteristics determined by ? [facility] in a manner consistent with CLIA requirements. This test has not ? been cleared or approved by the [place] and Drug Administration. ? Specimen Anatomical Collection Method Collection Time Receive d Time (Source) Location / / Volume Laterality 09/04/2016 2:30 PM 7 2:30 OBSTETRICS NURSE PM OBSTETRICS NURSE Yunior Andrews M.D., Ph.D. LAB BODY FLUIDS A ND STOOLS ORDERABLES Performing Organization Address City/[facility]/ZIP [facility] [place] [facility] - [address] [place] [address] [address] [facility] Glucose, POCT (09/04/2016 2:00 PM OBSTETRICS NURSE) [facility] Method Time Signature Last Intake NPO [facility] - [facility] Glucose, 125 70 - 140 [facility] POCT, B MG/DL LABORATORIES - [facility] Sample Site, Capillary [facility] Blood Gas, LABORATORIES - POCT [facility] Specimen Anatomical Collection Method Collection Time Receive d Time (Source) Location / / Volume Laterality 09/04/2016 2:00 PM 7 2:00 OBSTETRICS NURSE PM OBSTETRICS NURSE Historical Provider LAB POCT ORDERABLES-MANUAL Performing Organization Address City/[facility]/ZIP Code Phon e Number [facility] - [address] [place] [address] [address] [facility] (ABNORMAL) Electrolyte (Chem 4) Panel (09/04/2016 5:16 AM OBSTETRICS NURSE) [facility] Method Time Signature Chloride, S 106 98 - 107 [facility] MMOL/L LABORATORIES - [facility] HX Bicarbonate, 24 22 - 29 [facility] P/S MMOL/L LABORATORIES - [facility] Creatinine 3.1 (H) 0.6 - 1.1 [facility] MG/DL LABORATORIES - [facility] eGFR 15 (L) >60 [facility] Non-Black/Afric ML/MIN/BS LABORATORIES - an [place] A [facility] Anion Gap 13 7 - 15 [facility] - [facility] Glucose, S 88 70 - 140 [facility] MG/DL LAB[facility]ATORIES - [facility] Sodium, S 143 135 - 145 [facility] MMOL/L LABORATORIES - [facility] Potassium, S 4.2 3.6 - 5.2 [facility] MMOL/L LABORATORIES - [facility] eGFR-Black/Afri 19 (L) >60 [facility] can [place] ML/MIN/BS LABORATORIES - A [facility] [facility] BUN (Blood Urea 47 (H) 6 - 21 [facility] Nitrogen), S MG/DL LABORATORIES - [facility] Specimen Anatomical Collection Method Collection Time Receive d Time (Source) Location / / Volume Laterality 09/04/2016 5:16 AM 7 5:16 OBSTETRICS NURSE AM OBSTETRICS NURSE Yunior Andrews M.D., Ph.D. LAB BLOOD ADD-ON Performing Organization Address City/State/ZIP Code Phon e Number [facility] - [address] [place], [place] [address] [facility] Tacrolimus Level (09/04/2016 5:15 AM OBSTETRICS NURSE) Analysis Performed At Patho logist Time Signature Tacrolimus Time . [facility] of Last Dose LABORATORIES [facility] Comment: Not Specified Tacrolimus Blood Dose, mg . MG [facility] Comment: Not Specified ? ADDITIONAL INFORMATIO N ? Target steady-state trough concentration s vary depending on the type of ? transplant, concomitant immunosuppressio n, clinical/institutional protocols, ? and time post-transplant. Results should be interpreted in conjunction with ? this clinical information and any physic al signs/symptoms of ? rejection/toxicity. ? Testing performed by Liquid Chromatograp hy-Tandem Mass Spectrometry ? (LC-MS/MS). ? This test was developed and its performa nce characteristics determined by ? [facility] in a manner consistent with CLIA requirements. This test has not ? been cleared or approved by the [place] d and Drug Administration. ? Tacrolimus, B 6.0 5.0-15.0 (Trough) NG/ML [facility] [place] Tacrolimus Blood Date of . [facility] - Last Dose [facility] Comment: Not Specified Specimen Anatomical Collection Method Collection Time Receive d Time (Source) Location / / Volume Laterality 09/04/2016 5:15 AM 7 5:15 OBSTETRICS NURSE AM OBSTETRICS NURSE Yunior Andrews M.D., Ph.D. LAB BLOOD NON ADD -ON Performing Organization Address City/State/ZIP Code Phon e Number [facility] - [address] [place], [place] [address] [address] [facility] (ABNORMAL) Electrolyte (Chem 4) Panel (09/03/2016 5:39 AM OBSTETRICS NURSE) [facility] gist Method Time Signature Sodium, S 140 135 - 145 [facility] MMOL/L [facility] Potassium, S 4.0 3.6 - 5.2 [facility] MMOL/L LABORATORIES - [facility] HX Bicarbonate, 23 22 - 29 [facility] P/S MMOL/L LABORATORIES - [facility] Creatinine 3.5 (H) 0.6 - 1.1 [facility] MG/DL LAB[facility]ATORIES - [facility] eGFR 13 (L) >60 [facility] Non-Black/Afric ML/MIN/BS LABORATORIES - [place] A [facility] eGFR-Black/Afri 16 (L) >60 [facility] can [place] ML/MIN/BS LABORATORIES - A [facility] BUN (Blood Urea 49 (H) 6 - 21 [facility] Nitrogen), S MG/DL [facility]ATORIES - [facility] Glucose, S 90 70 - 140 [facility] MG/DL [facility]ATOR[facility] - [facility] Chloride, S 102 98 - 107 [facility] MMOL/L [facility]ATOR[facility] - [facility] Anion Gap 15 7 - 15 [facility] LABORATORIES - [facility] Specimen Anatomical Collection Method Collection Time Receive d Time (Source) Location / / Volume Laterality 09/03/2016 5:39 AM 7 5:39 OBSTETRICS NURSE AM OBSTETRICS NURSE Denise Prather M.D. LAB BLOOD ADD-ON Performing Organization Address City/State/ZIP Code Phon e Number [facility] LABORATORIES - [address] [place], [place] [address] [facility] (ABNORMAL) CBC with Differential (09/03/2016 5:39 AM OBSTETRICS NURSE) [facility] Method Time Signature Hemoglobin 10.8 (L) 12.0 - [facility] 15.5 G/DL LABORATORIES - [facility] Hematocrit 34.1 (L) 34.9 - [facility] 44.5 % LABORATORIES - [facility] Leukocytes 7.0 3.5 - [facility] 10.5 LABORATORIES - X10(9)/L [facility] Neutrophils 4.40 1.70 - [facility] 7.00 LABORATORIES - X10(9)/L [facility] Eosinophils 0.26 0.05 - [facility] 0.50 LABORATORIES - X10(9)/L [facility] Basophils 0.02 0.00 - [facility] 0.30 LABORATORIES - X10(9)/L [facility] Erythrocytes 3.89 (L) 3.90 - [facility] 5.03 LABORATORIES - X10(12)/L [facility] MCV 87.7 81.6 - [facility] 98.3 FL LABORATORIES - [facility] RBC Distrib 14.9 11.9 - [facility] Width 15.5 % LABORATORIES - [facility] Platelet Count 142 (L) 150 - 450 [facility] X10(9)/L LABORATORIES - [facility] Lymphocytes 1.48 0.90 - [facility] 2.90 LABORATORIES - X10(9)/L [facility] Monocytes 0.79 0.30 - [facility] 0.90 LABORATORIES - X10(9)/L [facility] Specimen Anatomical Collection Method Collection Time Receive d Time (Source) Location / / Volume Laterality 09/03/2016 5:39 AM 7 5:39 OBSTETRICS NURSE AM OBSTETRICS NURSE Denise Prather M.D. LAB BLOOD ADD-ON Performing Organization Address City/State/ZIP Code Phon e Number [facility] LABORATORIES - [address] [place], [place] [address] [address] [facility] HLA Class I SAB Antibody Screen (09/03/2016 5:39 AM OBSTETRICS NURSE) [facility] Method Time Signature Class I SAB Positive Not Applicable [facility] Overall LABORATORIES - Result [facility] Class I SAB 62 [facility] cPRA LABORATORIES - [facility] Comment: ? ADDITIONAL INFORMATIO N ? This PRA is a [facility] [place] Tiss ue Typing ? Laboratory calculated PRA. PRA is based on the antigen ? frequency of the Tissue Typing patient a nd donor ? population. ??PRA reflects all antibodie s with a normalized ? value (MFI) above 300. ? SAB C Specificity NONE [facility] LABORATORIES - [facility] Comment: ? ADDITIONAL INFORMATIO N ? Method: Luminex ? Performing Laboratory CLIA# [id number] ? SAB A Specificity . [facility] Comment: 31[5199], 30[4200], 30[3450], 32[784], 2 4[643], 25[616], ? 23[580], 24[560] ? Format: Serologic equivalent/abbreviated specificity ? [Normalized Value] shown in decreasing o rder. Note: A ? serologic equivalent/abbreviated specifi city displayed ? multiple times could indicate different alleles. ? SAB B Specificity . [facility] Comment: 51[5956], 51[3183], 78[3138], 52[2411], 75[2238], 49[2101], ? 63[1868], 38[1554], 77[1210], 58[975], 5 7[966], 59[957], ? 53[807], 57[730], 75[567], 71[465] ? Format: Serologic equivalent/abbreviated specificity ? [Normalized Value] shown in decreasing o rder. Note: A ? serologic equivalent/abbreviated specifi city displayed ? multiple times could indicate different alleles. ? Specimen Anatomical Collection Method Collection Time Receive d Time (Source) Location / / Volume Laterality 09/03/2016 5:39 AM 7 5:39 OBSTETRICS NURSE AM OBSTETRICS NURSE Denise Prather M.D. LAB HLA ORDERABLES Performing Organization Address City/State/ZIP Code Phon e Number [facility] LABORATORIES - [address] [place], [place] [address] [facility] HLA Class II SAB Antibody Screen (09/03/2016 5:39 AM OBSTETRICS NURSE) [facility] gist Method Time Signature Class II SAB Positive Not Applicable [facility] Overall LABORATORIES - Result [facility] Class II SAB 37 [facility] cPRA LABORATORIES - [facility] Comment: ? ADDITIONAL INFORMATIO N ? This PRA is a [facility] [place] Tiss ue Typing ? Laboratory calculated PRA. PRA is based on the antigen ? frequency of the Tissue Typing patient a nd donor ? population. ??PRA reflects all antibodie s with a normalized ? value (MFI) above 300. ? SAB DRB1 Specificity NONE [facility] SAB [id number] Specificity NONE [facility] SAB DQB1 Specificity . [facility] Comment: 2[8502], 2[975] ? Format: Serologic equivalent/abbreviated specificity ? [Normalized Value] shown in decreasing o rder. Note: A ? serologic equivalent/abbreviated specifi city displayed ? multiple times could indicate different alleles. ? SAB DPB1 Specificity NONE [facility] - [facility] Comment: ? ADDITIONAL INFORMATIO N ? Method: Luminex ? Performing Laboratory CLIA# [id number] ? Specimen Anatomical Collection Method Collection Time Receive d Time (Source) Location / / Volume Laterality 09/03/2016 5:39 AM 7 5:39 OBSTETRICS NURSE AM OBSTETRICS NURSE Denise Prather M.D. LAB HLA ORDERABLES Performing Organization Address City/State/ZIP Code Phon e Number [facility] - [address] [place], [place] [address] [address] [facility] Tacrolimus Level (09/03/2016 5:39 AM OBSTETRICS NURSE) Analysis Performed At Patho logist Time Signature Tacrolimus Time . [facility] of Last Dose LABORATORIES [facility] Comment: Not Specified Tacrolimus Blood Dose, mg . MG [facility] Comment: Not Specified ? ADDITIONAL INFORMATIO N ? Target steady-state trough concentration s vary depending on the type of ? transplant, concomitant immunosuppressio n, clinical/institutional protocols, ? and time post-transplant. Results should be interpreted in conjunction with ? this clinical information and any physic al signs/symptoms of ? rejection/toxicity. ? Testing performed by Liquid Chromatograp hy-Tandem Mass Spectrometry ? (LC-MS/MS). ? This test was developed and its performa nce characteristics determined by ? [facility] in a manner consistent with CLIA requirements. This test has not ? been cleared or approved by the [place] d and Drug Administration. ? Tacrolimus, B 7.4 5.0-15.0 (Trough) NG/ML [facility] [place] Tacrolimus Blood Date of . [facility] - Last Dose [facility] Comment: Not Specified Specimen Anatomical Collection Method Collection Time Receive d Time (Source) Location / / Volume Laterality 09/03/2016 5:39 AM 7 5:39 OBSTETRICS NURSE AM OBSTETRICS NURSE Denise Pratehr M.D. LAB BLOOD NON ADD-ON Performing Organization Address City/State/ZIP Code Phon e Number [facility] - [address] [place], [place] [address] [facility] (ABNORMAL) Calcium, Total (09/03/2016 5:39 AM OBSTETRICS NURSE) [facility] gist Method Time Signature Calcium, 8.6 (L) 8.9 - 10.1 [facility] Total, S MG/DL [facility] Specimen Anatomical Collection Method Collection Time Receive d Time (Source) Location / / Volume Laterality 09/03/2016 5:39 AM 7 5:39 OBSTETRICS NURSE AM OBSTETRICS NURSE Denise Prather M.D. LAB BLOOD ADD-ON Performing Organization Address City/State/ZIP Code Phon e Number [facility] LABORATORIES - [address] [place] [phone] [address] [facility] Magnesium (09/03/2016 5:39 AM OBSTETRICS NURSE) P athologist Signature Magnesium, S 1.8 1.7 - 2.3 [facility] MG/DL LABORATORIES - [facility] Specimen Anatomical Collection Method Collection Time Receive d Time (Source) Location / / Volume Laterality 09/03/2016 5:39 AM 7 5:39 OBSTETRICS NURSE AM OBSTETRICS NURSE Denise Prather M.D. LAB BLOOD ADD-ON Performing Organization Address City/[facility]/ZIP Code Phon e Number [facility] LABORATORIES - [address] [place] [phone] [address] [facility] (ABNORMAL) Phosphorus Inorganic (09/03/2016 5:39 AM OBSTETRICS NURSE) Patholo gist Method Time Signature Phosphorus 5.4 (H) 2.5 - 4.5 [facility] (Inorganic), S MG/DL LAB[facility]ATOR[facility] - [facility] Specimen Anatomical Collection Method Collection Time Receive d Time (Source) Location / / Volume Laterality 09/03/2016 5:39 AM 7 5:39 OBSTETRICS NURSE AM OBSTETRICS NURSE Denise Prather M.D. LAB BLOOD ADD-ON Performing Organization Address City/[facility]/ZIP Code Phon e Number [facility] LABORATORIES - [address] [place] [address] [address] [facility] Glucose, POCT (09/02/2016 10:38 PM OBSTETRICS NURSE) Patholo gist Method Time Signature Glucose, 120 70 - 140 [facility] POCT, B MG/DL LAB[facility]ATORIES - [facility] Sample Site, Capillary [facility] Blood Gas, LABORATORIES - POCT [facility] Last Intake > 4 hours [facility] Specimen Anatomical Collection Method Collection Time Receive d Time (Source) Location / / Volume Laterality 09/02/2016 10:38 09/02/2016 PM OBSTETRICS NURSE 10:38 PM OBSTETRICS NURSE Historical Provider LAB POCT ORDERABLES-MANUAL Performing Organization Address City/State/ZIP Code Phon e Number [facility] LABORATORIES - [address] [place], [place] [address] [address] [facility] Glucose, POCT (09/02/2016 5:59 PM OBSTETRICS NURSE) [facility] Method Time Signature Last Intake > 4 hours [facility] Glucose, 113 70 - 140 [facility] POCT, B MG/DL LABORATORIES - [facility] Sample Site, Capillary [facility] Blood Gas, LABORATORIES - POCT [facility] Specimen Anatomical Collection Method Collection Time Receive d Time (Source) Location / / Volume Laterality 09/02/2016 5:59 PM 7 5:59 OBSTETRICS NURSE PM OBSTETRICS NURSE Historical Provider LAB POCT ORDERABLES-MANUAL Performing Organization Address City/[facility] Code Phon e Number [facility] LABORATORIES - [address] [place] [phone] [facility] BK Virus PCR, Quant, P (09/02/2016 10:20 AM OBSTETRICS NURSE) [facility] gist Method Time Signature BK Virus PCR, None None [facility] Quant, P detected [facility] Comment: ? ADDITIONAL INFORMATIO N ? This test was developed and its performa nce characteristics determined by ? [facility] in a manner consistent with CLIA requirements. This test has not ? been cleared or approved by the [place] [facility] ([place], [place]) d and Drug Administration. ? Specimen Anatomical Collection Method Collection Time Receive d Time (Source) Location / / Volume Laterality 09/02/2016 10:20 09/02/2016 AM OBSTETRICS NURSE 10:20 AM OBSTETRICS NURSE Yunior Andrews M.D., Ph.D. LAB MICROBIOLOGY - BLOOD ORDERABLES Performing Organization Address City/State/ZIP Code Phon e Number [facility] LABORATORIES - [address] [place], [place] [address] [facility] (ABNORMAL) CBC without Differential (09/02/2016 10:20 AM OBSTETRICS NURSE) [facility] gist Method Time Signature Hemoglobin 10.8 (L) 12.0 - [facility] 15.5 G/DL LABORATORIES [facility] Hematocrit 34.2 (L) 34.9 - [facility] 44.5 % [facility] Leukocytes 7.8 3.5 - [facility] 10.5 LABORATORIES - X10(9)/L [facility] Erythrocytes 3.88 (L) 3.90 - [facility] 5.03 LABORATORIES - X10(12)/L [facility] MCV 88.1 81.6 - [facility] 98.3 FL LABORATORIES [facility] RBC Distrib 15.2 11.9 - [facility] Width 15.5 % [facility] - [facility] Platelet Count 149 (L) 150 - 450 [facility] X10(9)/L [facility] Specimen Anatomical Collection Method Collection Time Receive d Time (Source) Location / / Volume Laterality 09/02/2016 10:20 09/02/2016 AM OBSTETRICS NURSE 10:20 AM OBSTETRICS NURSE Yunior Andrews M.D., Ph.D. LAB BLOOD ADD-ON Performing Organization Address City/State/ZIP Code Phon e Number [facility] LABORATORIES - [address] [place] [phone] [address] [facility] (ABNORMAL) CBC with Differential (09/02/2016 5:40 AM OBSTETRICS NURSE) [facility] Method Time Signature Hemoglobin 11.3 (L) 12.0 - [facility] 15.5 G/DL LABORATORIES - [facility] Hematocrit 35.5 34.9 - [facility] 44.5 % LABORATORIES - [facility] RBC Distrib 15.2 11.9 - [facility] Width 15.5 % LABORATORIES - [facility] Platelet Count 145 (L) 150 - 450 [facility] X10(9)/L LABORATORIES - [facility] Lymphocytes 1.45 0.90 - [facility] 2.90 LABORATORIES - X10(9)/L [facility] Monocytes 0.84 0.30 - [facility] 0.90 LABORATORIES - X10(9)/L [facility] Erythrocytes 4.06 3.90 - [facility] 5.03 LABORATORIES - X10(12)/L [facility] MCV 87.4 81.6 - [facility] 98.3 FL LABORATORIES - [facility] Leukocytes 7.2 3.5 - [facility] 10.5 LABORATORIES - X10(9)/L [facility] Neutrophils 4.48 1.70 - [facility] 7.00 LABORATORIES - X10(9)/L [facility] Eosinophils 0.41 0.05 - [facility] 0.50 LABORATORIES - X10(9)/L [facility] Basophils 0.03 0.00 - [facility] 0.30 LABORATORIES - X10(9)/L [facility] Specimen Anatomical Collection Method Collection Time Receive d Time (Source) Location / / Volume Laterality 09/02/2016 5:40 AM 7 5:40 OBSTETRICS NURSE AM OBSTETRICS NURSE Yunior Andrews M.D., Ph.D. LAB BLOOD ADD-ON Performing Organization Address City/State/ZIP Code Phon e Number [facility] LABORATORIES - [address] [place], [place] [address] [address] [facility] (ABNORMAL) Electrolyte (Chem 4) Panel (09/02/2016 5:40 AM OBSTETRICS NURSE) Patholo gist Method Time Signature Chloride, S 103 98 - 107 [facility] MMOL/L LABORATORIES - [facility] HX Bicarbonate, 21 (L) 22 - 29 [facility] P/S MMOL/L LABORATORIES [facility] eGFR-Black/Afri 15 (L) >60 [facility] can [place] ML/MIN/BS LABORATORIES - A [facility] BUN (Blood Urea 51 (H) 6 - 21 [facility] Nitrogen), S MG/DL [facility] - [facility] Sodium, S 139 135 - 145 [facility] MMOL/L LABORATORIES - [facility] Potassium, S 3.8 3.6 - 5.2 [facility] MMOL/L [facility] - [facility] Creatinine 3.7 (H) 0.6 - 1.1 [facility] MG/DL [facility] - [facility] eGFR 13 (L) >60 [facility] Non-Black/Afric ML/MIN/BS LABORATORIES - [place] A [facility] Anion Gap 15 7 - 15 [facility] Glucose, S 87 70 - 140 [facility] MG/DL [facility] - [facility] Specimen Anatomical Collection Method Collection Time Receive d Time (Source) Location / / Volume Laterality 09/02/2016 5:40 AM 7 5:40 OBSTETRICS NURSE AM OBSTETRICS NURSE Yunior Andrews M.D., Ph.D. LAB BLOOD ADD-ON Performing Organization Address City/[facility] Code Phon e Number [facility] LABORATORIES - [address] [place] [phone] [address] [facility] Magnesium (09/02/2016 5:40 AM OBSTETRICS NURSE) P athologist Signature Magnesium, S 1.8 1.7 - 2.3 [facility] MG/DL LABORATORIES - [facility] Specimen Anatomical Collection Method Collection Time Receive d Time (Source) Location / / Volume Laterality 09/02/2016 5:40 AM 7 5:40 OBSTETRICS NURSE AM OBSTETRICS NURSE Yunior Andrews M.D., Ph.D. LAB BLOOD ADD-ON Performing Organization Address City/[facility] Phon e Number [facility] LABORATORIES - [address] [place], [place] [address] [facility] (ABNORMAL) Calcium, Total (09/02/2016 5:40 AM OBSTETRICS NURSE) Patholo gist Method Time Signature Calcium, 8.7 (L) 8.9 - 10.1 [facility] Total, S MG/DL [facility] Specimen Anatomical Collection Method Collection Time Receive d Time (Source) Location / / Volume Laterality 09/02/2016 5:40 AM 7 5:40 OBSTETRICS NURSE AM OBSTETRICS NURSE Yunior Andrews M.D., Ph.D. LAB BLOOD ADD-ON Performing Organization Address City/State/ZIP Code Phon e Number [facility] - [address] [place], [place] [address] [address] [facility] Tacrolimus Level (09/02/2016 5:40 AM OBSTETRICS NURSE) [facility] Signature Tacrolimus Time . [facility] of Last Dose [facility] Comment: Not Specified Tacrolimus Blood Dose, mg . MG [facility] Comment: Not Specified ? ADDITIONAL INFORMATIO N ? Target steady-state trough concentration s vary depending on the type of ? transplant, concomitant immunosuppressio n, clinical/institutional protocols, ? and time post-transplant. Results should be interpreted in conjunction with ? this clinical information and any physic al signs/symptoms of ? rejection/toxicity. ? Testing performed by Liquid Chromatograp hy-Tandem Mass Spectrometry ? (LC-MS/MS). ? This test was developed and its performa nce characteristics determined by ? [facility] in a manner consistent with CLIA requirements. This test has not ? been cleared or approved by the [place] d and Drug Administration. ? Tacrolimus, B 13.0 5.0-15.0 (Trough) [facility] LABORATORIES - NG/ML [facility] Tacrolimus Blood Date of . [facility] LABORATORIES - Last Dose [facility] Comment: Not Specified Specimen Anatomical Collection Method Collection Time Receive d Time (Source) Location / / Volume Laterality 09/02/2016 5:40 AM 7 5:40 OBSTETRICS NURSE AM OBSTETRICS NURSE Yunior Andrews M.D., Ph.D. LAB BLOOD NON ADD -ON Performing Organization Address City/State/ZIP Code Phon e Number [facility] LABORATORIES - [address] [place], [place] [address] [facility] (ABNORMAL) Phosphorus Inorganic (09/02/2016 5:40 AM OBSTETRICS NURSE) Patholo gist Method Time Signature Phosphorus 5.8 (H) 2.5 - 4.5 [facility] (Inorganic), S MG/DL LABORATORIES - [facility] Specimen Anatomical Collection Method Collection Time Receive d Time (Source) Location / / Volume Laterality 09/02/2016 5:40 AM 7 5:40 OBSTETRICS NURSE AM OBSTETRICS NURSE Yunior Andrews M.D., Ph.D. LAB BLOOD ADD-ON Performing Organization Address City/State/ZIP Code Phon e Number [facility] LABORATORIES - [address] [place], [place] [address] [address] [facility] V&IRAD Vascular & Intervention (09/01/2016 3:40 PM OBSTETRICS NURSE) Anatomical Region Laterality Modality N/A X-Ray Angiography Specimen (Source) Anatomical Collection Method Collection Time Re ceived Time Location / / Volume Laterality 09/01/2016 3:40 PM OBSTETRICS NURSE Impressions 09/01/2016 4:28 PM OBSTETRICS NURSE Placement of a 10-South Korean right lower quadrant renal transplant nephrostomy tube. ?? HISTORY: Status post right lower quadran t renal transplant a number of years ago. Worsening renal function. Ultrasound and Nuclear Medicine studies suggesting hydronephrosis. ?? TECHNIQUE/FINDINGS: She was given intrav enous Rocefin and Flagyl. She was placed LPO and her right lower quadrant prepped and draped sterilely. I placed her LPO since a recent CT scan showed significant bowel overlying the right lower quadran t renal transplant. Direct ultrasound guidance was used to advance a 21-gauge Chiba needle into an upper pole renal calyx and a permanent image stored. A renal tr ansplant nephrostogram was performed. Th ere is moderate dilatation of the renal transplant collecting system. There is a holdup of contrast in the dilated renal pelvis, but there is intermittent passage of contrast through a ??nondilated uret er into bladder. The holdup appears to be at the ureteropelvic junction, where a short segment of ureter appears strictured. An AccuStick catheter was advanced ov er the microwire, and this was removed o elder a J-wire. To confirm that I had not traversed a loop of bowel, a 4-South Korean sheath was advanced over the wire and a pullback tractogram performed. This did not show any bowel. The entrance sit e into the kidney was dilated followed by placement of a 10-South Korean nephrostomy tube. A repeat nephrostogram showed good positioning and control. A sample of urine was sent for culture. The tube was sutu red in place and put to external drainage. ?? PREPROCEDURE: Patient seen, evaluated, h istory reviewed, and approved for sedation. Airway, heart and lung exam satisfactory for sedation. Discussed risks, benefits, alternatives for procedure, and/or s edation, and obtained informed consent. Patient understands information and questions answered. Immediately prior to starting the procedure, in the presence of the assisting personnel, procedural pause was conducted to verify correct patient identity and verification of procedure to be performed, and as applicable, correct side and site, correct patient position, availability of implants, special equi pment, or special requirements, and all image and specimen identification data. Moderate sedation was administered by sedation nurse under Anesthesia Department ??supervision. The roles and responsibili ties of care team members, residents, an d fellows were discussed. ?? Intraprocedural sedation time: 30.0 josselyn paulette Fluoro time: 7.8 minutes Electronically signed by: ?? Belle Lewis MD ?? [id number] 01-Sep-2016 16:28 Narrative 09/01/2016 4:28 PM OBSTETRICS NURSE 01-Sep-2016 15:40:00 ??Exam: V&IRAD Vascular & Intervention Indications: RIGHT PNTP Obstructive uropathy ORIGINAL REPORT - 01-Sep-2016 16:28:00 EXAM: V&IRAD Vascular & Intervention. Procedure Note Tony Lewis M.D. - 11/14/2017Fo rmatting of this note might be different from the original. 01-Sep-2016 15:40:00 Exam: V&IRAD Vascul ar & Intervention Indications: RIGHT PNTP Obstructive uropathy ORIGINAL REPORT - 01-Sep-2016 16:28:00 EXAM: V&IRAD Vascular & Intervention. IMPRESSION: Placement of a 10-South Korean rig ht lower quadrant renal transplant nephrostomy tube. HISTORY: Status post right lower quadran t renal transplant a number of years ago. Worsening renal function. Ultrasound and Nuclear Medicine studies suggesting hydronephrosis. TECHNIQUE/FINDINGS: She was given intrav enous Rocefin and Flagyl. She was placed LPO and her right lower quadrant prepped and draped sterilely. I placed her LPO since a recent CT scan showed significant bowel overlying the right lower quadrant renal transplan t. Direct ultrasound guidance was used to advance a 21-gauge Chiba needle into an upper pole renal calyx and a permanent image stored. A renal transplant nephrostogram was performed. There is moderate dilatation of the chelsea l transplant collecting system. There is a holdup of contrast in the dilated renal pelvis, but there is intermittent passage of contrast through a nondilated ureter into bladder. The holdup appears to be at the ureteropelvic junction, where a short segment of ureter appears strictured. An AccuStick catheter was advanced over the microwire, and this was removed over a J-wire. To confirm that I had not traversed a loop of bowel, a 4-South Korean sheath was advanced over the wire and a pullback tractogram performed. This did not show any bowel. The entrance site into the kidney was dilated followed by placement of a 10-[place] Korean nephrostomy tub e. A repeat nephrostogram showed good positioning and control. A sample of urine was sent for culture. The tube was sutured in place and put to external drainage. PREPROCEDURE: Patient seen, evaluated, h istory reviewed, and approved for sedation. Airway, heart and lung exam satisfactory for sedation. Discussed risks, benefits, alternatives for procedure, and/or sedation, and obtained informed consent. Patient understands in formation and questions answered. Immediately prior to starting the procedure, in the presence of the assisting personnel, procedural pause was conducted to verify correct patient identity and verification of pro cedure to be performed, and as applicable, correct side and site, correct patient position, availability of implants, special equipment, or special requirements, and all image and specimen identification data. Moderate s edation was administered by sedation nurse under Anesthesia Department supervision. The roles and responsibilities of care team members, residents, and fellows were discussed. Intraprocedural sedation time: 30.0 josselyn paulette Fluoro time: 7.8 minutes Electronically signed by: Belle Lewis MD [id number] 01-Sep-2016 16 :28 Whitney Rasheed Jr.ODavi IMG IR PROCEDURES Microbiology Reports (09/01/2016 2:24 PM OBSTETRICS NURSE) Specimen Anatomical Collection Method Collection Time Receive d Time (Source) Location / / Volume Laterality 09/01/2016 2:24 PM 09/01/ 7 4:37 OBSTETRICS NURSE PM OBSTETRICS NURSE Narrative [facility] - 09/26/2016 1:03 AM OBSTETRICS NURSE 01-SEP-2016 KIDNEY, URINE FROM RIGHT TRA NSPLANTED ?SoftOrd# [id number] ?(Ordered 01-SEP-2016; Collec rebecca 01-SEP-2016 14:24; Received 01-SEP-2016 16:36) ?[facility] ?FUNGAL SMEAR ?(Reported 02-SEP-2016 14:44) FINAL ?Negative. ?FUNGAL CULTURE, ROUTINE ? (Reported 26-SEP-2016 01:03) FINAL ?No growth after 24 days of i ncubation. ?GRAM STAIN ?(Reported 01-SEP-2016 19:39) FINAL ?No organisms seen. ?BACTERIAL CULTURE, AEROBIC + GAONA SC ? (Reported 06-SEP-2016 07:37) FINAL ?No growth after 5 days of in cubation. ?BACTERIAL CULTURE, ANAEROBIC + SUSC ? (Reported 15-SEP-2016 14:31) FINAL ?No growth after 14 days of i ncubation. Procedure Note 01/04/2018 01-SEP-2016 KIDNEY, URINE FROM RIGHT TRA NSPLANTED SoftOrd# [id number] (Ordered 01-SEP-2016; Collected 2016 14:24; Received 01-SEP-2016 16:36) [facility] FUNGAL SMEAR (Reported 02-SEP-2016 14: 44) FINAL Negative. FUNGAL CULTURE, ROUTINE (Reported 01:03) FINAL No growth after 24 days of incubation. GRAM STAIN (Reported 01-SEP-2016 19:39 ) FINAL No organisms seen. BACTERIAL CULTURE, AEROBIC + SUSC (Rep orted 06-SEP-2016 07:37) FINAL No growth after 5 days of incubation. BACTERIAL CULTURE, ANAEROBIC + SUSC (R eported 15-SEP-2016 14:31) FINAL No growth after 14 days of incubation. Steve Martínez Jr. DDaviO. LAB MICROBIOLOGY - GENERAL ORDERABLES Performing Organization Address City/State/ZIP Code Phon e Number [facility] LABORATORIES - [address] [place], [place] [address] [facility] documented in this encounter Visit Diagnoses Not on filedocumented in this encounter
--- OUTSIDE RECORDS SUMMARY | 2022-05-25 13:32 | XMS_ITS | Encounter Summary ---
:1960 Author Organization [facility] Address [address] [place] [address] Care Team Providers Name Role Phone Unavailable Primary Care Provider Unavailable Encounter Details Date Type Department Care Team Description 12/17/2014 Hospital Encounter HX NO MAPPING Social History [...] An Nicholas APRN, C.N.P., Michelle.NDaviP., M.S.N. [address] [place] [address] [phone] (Wo rk) 07/31/2022 Lab Laboratory Medicine Tony Rubalcava M. B., ChBurke, MDebra [address] [place] [address] [phone] (Wo rk) 07/31/2022 Lab Laboratory Medicine Tony Rubalcava M. B., ChBurke, Mukund [address] [place] [address] [phone] (Wo rk) 07/31/2022 Office Visit Transplant Tony Rubalcava M.B., Sydnie, MDebra [address] [place] [address] [phone] (Wo rk) 07/31/2022 Appointment Radiology Tony Rubalcava M.B., ChBurke, MDebra [address] [place] [phone] (Wo rk) 08/01/2022 Office Visit Transplant Tony Rubalcava M.B., Sydnie, MDebra [address] [place] [phone] (Wo rk) 08/01/2022 Clinical Support Transplant Tony Rubalcava M.B., ChBurke, MDebra [address] [place] [address] [phone] (Wo rk) documented as of this encounter Visit Diagnoses Not on filedocumented in this encounter
--- OUTSIDE RECORDS SUMMARY | 2022-05-25 13:32 | XMS_ITS | Encounter Summary ---
:1960 Author Organization [facility] Address [address] [place] [address] Care Team Providers Name Role Phone Unavailable Primary Care Provider Unavailable Encounter Details Date Type Department Care Team Description 11/30/2014 Hospital Encounter HX NO MAPPING Social History [...] How often do you attend episcopalian or holiness 1 to 4 times per [...] An Nicholas APRN, C.N.P., Michelle.NDaviP., M.S.N. [address] [place] [address] [phone] (Wo rk) 07/31/2022 Lab Laboratory Medicine Tony Rubalcava M. B., ChBurke, MDebra [address] [place] [address] [phone] (Wo rk) 07/31/2022 Lab Laboratory Medicine Tony Rubalcava M. B., ChBurke, Mukund [address] [place] [address] [phone] (Wo rk) 07/31/2022 Office Visit Transplant Tony Rubalcava M.B., Sydnie, MDebra [address] [place] [address] [phone] (Wo rk) 07/31/2022 Appointment Radiology Tony Rubalcava M.B., ChBurke, MDebra [address] [place] [address] [phone] (Wo rk) 08/01/2022 Office Visit Transplant Tony Rubalcava M.B., Sydnie, MDebra [address] [place] [phone] (Wo rk) 08/01/2022 Clinical Support Transplant Tony Rubalcava M.B., ChBurke, MDebra [address] [place] [address] [phone] (Wo rk) documented as of this encounter Visit Diagnoses Not on filedocumented in this encounter
--- OUTSIDE RECORDS SUMMARY | 2022-05-25 13:32 | XMS_ITS | Encounter Summary ---
:1960 Author Organization [facility] Address [address] [place] [address] Care Team Providers Name Role Phone Unavailable Primary Care Provider Unavailable Encounter Details Date Type Department Care Team Description 03/30/2016 - Hospital Encounter HX RST EMERGENCY Provider, Historic al 03/31/2016 TRAUMA UNI Social History Tobacco Use Types Packs/Day Years [...] How often do you attend islam or presybeterian 1 to 4 times per [...] An Nicholas APRN, C.NDaviPDavi, D.N.P., M.S.N. [address] [place] [address] [phone] (Wo rk) 07/31/2022 Lab Laboratory Medicine Tony Rubalcava M. B., Sydnie, Mukund [address] [place] [address] [phone] (Wo rk) 07/31/2022 Lab Laboratory Medicine Tony Rubalcava M. B., Sydnie, Mukund [address] [place] [address] [phone] (Wo rk) 07/31/2022 Office Visit Transplant Tony Rubalcava M.B., ChBurke, MDebra [address] [place] [address] [phone] (Wo rk) 07/31/2022 Appointment Radiology Tony Rubalcava M.B., ChBurke, MDebra [address] [place] [address] [phone] (Wo rk) 08/01/2022 Office Visit Transplant Tony Rubalcava M.B., Sydnie, MDebra [address] [place] [address] [phone] (Wo rk) 08/01/2022 Clinical Support Transplant Tony Rubalcava M.B., Sydnie, MDebra [address] [place] [address] [phone] (Wo rk) documented as of this encounter Procedures Procedure Name Priority Date/Time Associated Comments Diagnosis MICROSCOPIC MANUAL Routine 03/30/2016 11:05 Resul ts for this PM CDT procedure are i n the results section. KETONES,QL(U) Routine 03/30/2016 11:05 Results fo r this PM CDT procedure are i n the results section. GRAM'S ST, U Routine 03/30/2016 11:05 Results for this PM CDT procedure are i n the results section. URINALYSIS WITH Routine 03/30/2016 11:05 Results for this MICROSCOPIC PM CDT procedure are i n the results section. DIPSTICK, POCT, U Routine 03/30/2016 10:29 Result s for this (DIPC1) PM CDT procedure are i n the results section. CBC WITH Routine 03/30/2016 8:12 PM Results f or this DIFFERENTIAL, B CDT procedure ar e in the results section. LACTATE, B/P Routine 03/30/2016 8:12 PM Results f or this CDT procedure are i n the results section. BASIC METABOLIC Routine 03/30/2016 8:12 PM Result s for this PANEL, S/P CDT procedure are i n the results section. documented in this encounter Results Ketones, Qual, Urine (03/30/2016 11:05 PM CDT) [facility] gist Method Time Signature HX Ketones, Negative Negative [facility] Ql. MG/DL [facility] Specimen Anatomical Collection Method Collection Time Receive d Time (Source) Location / / Volume Laterality 03/30/2016 11:05 03/30/2016 PM CDT 11:05 PM CDT Donna Duque M.D. LAB URINE ORDERABLES Performing Organization Address City/State/ZIP Code Phon e Number [facility] LABORATORIES - [address] [place], [place] [address] [facility] Gram Stain, Urine (03/30/2016 11:05 PM CDT) [facility] gist Method Time Signature Gram's Stain, Negative [facility] Screen, U LABORATORIES [facility] Specimen Anatomical Collection Method Collection Time Receive d Time (Source) Location / / Volume Laterality 03/30/2016 11:05 03/30/2016 PM CDT 11:05 PM CDT Donna Duque M.D. LAB URINE ORDERABLES Performing Organization Address City/State/ZIP Code Phon e Number [facility] - [address] [place], [place] [address] [facility] (ABNORMAL) Urinalysis with Microscopic (03/30/2016 11:05 PM CDT) [facility] gist Method Time Signature pH, 24 HR, U 5.7 4.5 - 8.0 [facility] Hemoglobin, Negative Negative [facility] Protein, U 61 (H) <22 MG/DL [facility] Comment: ? ADDITIONAL INFORMATIO N ? On 03/02/2014 the total protein assay me thod changed resulting ? in approximately a 20% increase in prote in values. ? Protein/Osmolality 1.69 (H) <0.27 RATIO [facility] Comment: ? ADDITIONAL INFORMATIO N ? On 03/02/2014 the total protein assay me thod changed resulting ? in approximately a 20% increase in prote in values. ? Source Midstream [facility] Osmolality, 24 HR, U 361 150 - 1150 MOSM/KG [facility] S Appearance Normal Normal [facility] Glucose 430 (H) 0 - 15 MG/DL [facility] S Predicted 24 Hr Protein 1077 MG/24 H [facility] Predicted Range 266-4361 MG/24 H [facility] Specimen Anatomical Collection Method Collection Time Receive d Time (Source) Location / / Volume Laterality 03/30/2016 11:05 03/30/2016 PM CDT 11:05 PM CDT Donna Duque M.D. LAB URINE ORDERABLES Performing Organization Address City/[facility]/ZIP Code Phon e Number [facility] LABORATORIES - [address] [place] [address] [facility] Microscopic Manual (03/30/2016 11:05 PM CDT) P athologist Signature Microscopy Normal [facility] Blood <3 <3 /HPF [facility] Specimen Anatomical Collection Method Collection Time Receive d Time (Source) Location / / Volume Laterality 03/30/2016 11:05 03/30/2016 PM CDT 11:05 PM CDT Donna Duque M.D. LAB URINE ORDERABLES Performing Organization Address City/[facility] Code Phon e Number [facility] LABORATORIES - [address] [place] [address] [facility] (ABNORMAL) Dipstick, POCT, Urine (lab) (03/30/2016 10:29 PM CDT) Patholo gist Method Time Signature Specific 1.020 1.001 - [facility] Reva, 1.035 LABORATORIES - POCT, U [facility] Blood, POCT, Trace (A) Negative [facility] Glucose, 500 (A) Negative [facility] POCT, [facility] Ketone, POCT, Negative Negative ML [facility] pH, POCT, 6.0 5.0 - 8.0 [facility] Urine [facility] Protein, 100 (A) Negative [facility] POCT, [facility] Nitrites, Negative Negative [facility] POCT, U LABORATORIES - [facility] Leukocytes, Negative Negative [facility] POCT, U LABORATORIES - [facility] Specimen Anatomical Collection Method Collection Time Receive d Time (Source) Location / / Volume Laterality 03/30/2016 10:29 03/30/2016 PM CDT 10:29 PM CDT Historical Provider LAB POCT ORDERABLES - DEVICE Performing Organization Address City/[facility]/ZIP Code Phon e Number [facility] LABORATORIES - [address] [place], [place] [address] [facility] (ABNORMAL) CBC with Differential (03/30/2016 8:12 PM CDT) [facility] Method Time Signature Hemoglobin 13.2 12.0 - [facility] 15.5 G/DL LABORATORIES [facility] Hematocrit 40.6 34.9 - [facility] 44.5 % LABORATORIES - [facility] Lymphocytes 1.75 0.90 - [facility] 2.90 LABORATORIES - X10(9)/L [facility] Monocytes 1.35 (H) 0.30 - [facility] 0.90 LABORATORIES - X10(9)/L [facility] Erythrocytes 4.73 3.90 - [facility] 5.03 LABORATORIES - X10(12)/L [facility] MCV 85.8 81.6 - [facility] 98.3 FL LABORATORIES - [facility] RBC Distrib 15.1 11.9 - [facility] Width 15.5 % [facility] - [facility] Platelet Count 291 150 - 450 [facility] X10(9)/L LABORATORIES [facility] Leukocytes 13.4 (H) 3.5 - [facility] 10.5 LABORATORIES - X10(9)/L [facility] Neutrophils 10.15 (H) 1.70 - [facility] 7.00 LABORATORIES - X10(9)/L [facility] Eosinophils 0.07 0.05 - [facility] 0.50 LABORATORIES - X10(9)/L [facility] Basophils 0.03 0.00 - [facility] 0.30 LABORATORIES - X10(9)/L [facility] Specimen Anatomical Collection Method Collection Time Receive d Time (Source) Location / / Volume Laterality 03/30/2016 8:12 PM 6 8:12 CDT PM CDT Donna Duque M.D. LAB BLOOD ADD-ON Performing Organization Address City/State/ZIP Code Phon e Number [facility] LABORATORIES - [address] [place], [place] [address] [facility] Lactate (03/30/2016 8:12 PM CDT) P athologist Signature Lactate, P 1.5 0.6 - 2.3 [facility] MMOL/L LABORATORIES - [facility] Specimen Anatomical Collection Method Collection Time Receive d Time (Source) Location / / Volume Laterality 03/30/2016 8:12 PM 6 8:12 CDT PM CDT Donna Duque M.D. LAB BLOOD NON ADD-ON Performing Organization Address City/[facility]/ZIP Code Phon e Number [facility] LABORATORIES - [address] [place] [address] [facility] (ABNORMAL) BMP (Basic Metabolic Panel) (03/30/2016 8:12 PM CDT) Patholo gist Method Time Signature Chloride, S 99 98 - 107 [facility] MMOL/L LABORATORIES - [facility] Creatinine 2.0 (H) 0.6 - 1.1 [facility] MG/DL LABORATORIES [facility] BUN (Blood Urea 30 (H) 6 - 21 [facility] Nitrogen), S MG/DL LABORATORIES - [facility] HX Bicarbonate, 22 22 - 29 [facility] P/S MMOL/L LABORATORIES - [facility] Sodium, P 139 135 - 145 [facility] MMOL/L LABORATORIES - [facility] Potassium, P 3.0 (L) 3.6 - 5.2 [facility] MMOL/L [facility] - [facility] eGFR 26 (L) >60 [facility] Non-Black/Afric ML/MIN/BS LABORATORIES - an [place] A [facility] eGFR-Black/Afri 31 (L) >60 [facility] can [place] ML/MIN/BS LABORATORIES - A [facility] Glucose, S 204 (H) 70 - 140 [facility] MG/DL LABORATORIES - [facility] Anion Gap 18 (H) 7 - 15 [facility] LABORATORIES - [facility] Specimen Anatomical Collection Method Collection Time Receive d Time (Source) Location / / Volume Laterality 03/30/2016 8:12 PM 6 8:12 CDT PM CDT Donna Duque M.D. LAB BLOOD ADD-ON Performing Organization Address City/[facility]/ZIP Code Phon e Number [facility] LABORATORIES - [address] [place], [place] [address] [facility] documented in this encounter Visit Diagnoses Not on filedocumented in this encounter
--- OUTSIDE RECORDS SUMMARY | 2022-05-25 13:32 | XMS_ITS | Encounter Summary ---
:1960 Author Organization [facility] Address [address] [place] [address] Care Team Providers Name Role Phone Unavailable Primary Care Provider Unavailable Encounter Details Date Type Department Care Team Description 10/31/2014 - Hospital Encounter HX RST Bettina Flynn M.D. 11/06/2014 [address] [place] [address] Social History Tobacco Use Types Packs/Day Years [...] How often do you attend moravian or mosque 1 to 4 times per [...] Sign Reading Time Taken Comments Blood Pressure 140/76 11/06/2014 11:05 AM CDT Pulse 63 11/06/2014 11:05 AM CDT Temperature - - Respiratory Rate 18 11/06/2014 11:05 AM CDT Oxygen Saturation - - Inhaled Oxygen Concentration - - Weight 102 kg (224 lb 10.4 oz) 11/04/2014 6:36 AM CDT Height 165 cm (5' 4.96) 10/31/2014 3:56 AM CDT Body Mass Index 37.43 10/31/2014 3:56 AM CDT documented in this encounter Plan of Treatment Upcoming Encounters Date Type Specialty Care Team Description 06/01/2022 Telemedicine Pharmacy An Nicholas APRN C.NDaviP., D.N.P., M.S.N. [address] [place] [address] [phone] (Nicolas wen) 07/31/2022 Lab Laboratory Medicine Tony Rubalcava M. B., Ch.B., M.Michelle. [address] [place] [address] [phone] (Nicolas wen) 07/31/2022 Lab Laboratory Medicine Tony Rubalcava M. B., Ch.B., MElvia. [address] [place] [address] [phone] (Wo behzad) 07/31/2022 Office Visit Transplant Tony Rubalcava M.B., Ch.B., MElvia. [address] [place] [address] [phone] (Wo behzad) 07/31/2022 Appointment Radiology Tony Rubalcava M.B., Mukund Otoole [address] [place] [address] [phone] (Wo rk) 08/01/2022 Office Visit Transplant Tnoy Rubalcava M.B., Mukund Otoole [address] [place], [place] [phone] (Wo rk) 08/01/2022 Clinical Support Transplant Tony Rubalcava M.B., Mukund Otoole [address] [place], [place] [phone] (Wo rk) documented as of this encounter Procedures Procedure Name Priority Date/Time Associated Comments Diagnosis ELECTROLYTE (CHEM 4) Routine 11/06/2014 5:22 Resu lts for this PANEL, S/P AM CDT procedure are i n the results section. CBC WITHOUT Routine 11/06/2014 5:22 Results for this DIFFERENTIAL, B AM CDT procedure ar e in the results section. CYTOMEGALOVIRUS AB, IGM Routine 11/05/2014 4:41 R esults for this AND IGG PM CDT procedure are i n the results section. V&IRAD VASCULAR & Routine 11/05/2014 10:13 Result s for this INTERVENTION AM CDT procedure are i n the results section. ELECTROLYTE (CHEM 4) Routine 11/05/2014 7:08 Resu lts for this PANEL, S/P AM CDT procedure are i n the results section. BK VIRUS DNA BY PCR Routine 11/05/2014 7:08 Resul ts for this AM CDT procedure are i n the results section. TACROLIMUS LEVEL, B Routine 11/05/2014 7:08 Resul ts for this AM CDT procedure are i n the results section. EBV AB PROFILE Routine 11/05/2014 7:08 Results fo r this AM CDT procedure are i n the results section. CBC WITHOUT Routine 11/05/2014 7:08 Results for this DIFFERENTIAL, B AM CDT procedure ar e in the results section. PHOSPHORUS (INORGANIC), Routine 11/05/2014 7:08 R esults for this S AM CDT procedure are i n the results section. BK VIRUS PCR, QUANT, U Routine 11/04/2014 8:40 Re sults for this PM CDT procedure are i n the results section. V&IRAD VASCULAR & Routine 11/04/2014 1:04 Results for this INTERVENTION PM CDT procedure are i n the results section. TACROLIMUS LEVEL, B Routine 11/04/2014 10:13 Resu lts for this AM CDT procedure are i n the results section. ELECTROLYTE (CHEM 4) Routine 11/04/2014 10:12 Res ults for this PANEL, S/P AM CDT procedure are i n the results section. PROTHROMBIN TIME (PT), P Routine 11/04/2014 10:12 Results for this AM CDT procedure are i n the results section. CBC WITHOUT Routine 11/04/2014 10:12 Results for this DIFFERENTIAL, B AM CDT procedure ar e in the results section. US ABDOMEN LIMITED Routine 11/04/2014 9:11 Result s for this AM CDT procedure are i n the results section. ACTIVATED PARTIAL Routine 11/03/2014 4:48 Results for this THROMBOPLASTIN TIME PM CDT procedur e are in (APTT), P the results section. PROTHROMBIN TIME (PT), P Routine 11/03/2014 4:48 Results for this PM CDT procedure are i n the results section. ELECTROLYTE (CHEM 4) Routine 11/03/2014 11:42 Res ults for this PANEL, S/P AM CDT procedure are i n the results section. CBC WITHOUT Routine 11/03/2014 11:42 Results for this DIFFERENTIAL, B AM CDT procedure ar e in the results section. HX MICROBIOLOGY REPORTS Routine 11/02/2014 5:56 R esults for this PM CDT procedure are i n the results section. MICROSCOPIC MANUAL Routine 11/02/2014 5:56 Result s for this PM CDT procedure are i n the results section. GRAM'S STAIN, Routine 11/02/2014 5:56 Results for this CONFIRMATORY, U PM CDT procedure ar e in the results section. GRAM'S ST, U Routine 11/02/2014 5:56 Results for this PM CDT procedure are i n the results section. URINALYSIS WITH Routine 11/02/2014 5:56 Results f or this MICROSCOPIC PM CDT procedure are i n the results section. ELECTROLYTE (CHEM 4) Routine 11/02/2014 5:06 Resu lts for this PANEL, S/P AM CDT procedure are i n the results section. TACROLIMUS LEVEL, B Routine 11/02/2014 5:06 Resul ts for this AM CDT procedure are i n the results section. CBC WITHOUT Routine 11/02/2014 5:06 Results for this DIFFERENTIAL, B AM CDT procedure ar e in the results section. TACROLIMUS LEVEL, B Routine 11/01/2014 7:33 Resul ts for this AM CDT procedure are i n the results section. ELECTROLYTE (CHEM 4) Routine 11/01/2014 12:42 Res ults for this PANEL, S/P AM CDT procedure are i n the results section. CBC WITHOUT Routine 11/01/2014 12:42 Results for this DIFFERENTIAL, B AM CDT procedure ar e in the results section. US KIDNEY TRANSPLANT Routine 10/31/2014 11:45 Res ults for this DOPPLER AM CDT procedure are i n the results section. HX MICROBIOLOGY REPORTS Routine 10/31/2014 10:04 Results for this AM CDT procedure are i n the results section. SODIUM, RANDOM, U Routine 10/31/2014 10:04 Result s for this AM CDT procedure are i n the results section. POTASSIUM, RANDOM, U Routine 10/31/2014 10:04 Res ults for this AM CDT procedure are i n the results section. MICROSCOPIC MANUAL Routine 10/31/2014 10:04 Resul ts for this AM CDT procedure are i n the results section. GRAM'S ST, U Routine 10/31/2014 10:04 Results for this AM CDT procedure are i n the results section. CREATININE, RANDOM, U Routine 10/31/2014 10:04 Re sults for this AM CDT procedure are i n the results section. URINALYSIS WITH Routine 10/31/2014 10:04 Results for this MICROSCOPIC AM CDT procedure are i n the results section. TACROLIMUS LEVEL, B Routine 10/31/2014 7:37 Resul ts for this AM CDT procedure are i n the results section. PHOSPHORUS (INORGANIC), Routine 10/31/2014 3:47 R esults for this S AM CDT procedure are i n the results section. MAGNESIUM, S Routine 10/31/2014 3:47 Results for this AM CDT procedure are i n the results section. BASIC METABOLIC PANEL, Routine 10/31/2014 3:47 Re sults for this S/P AM CDT procedure are i n the results section. documented in this encounter Results (ABNORMAL) Electrolyte (Chem 4) Panel (11/06/2014 5:22 AM CDT) [facility] Method Time Signature Chloride, S 104 98 - 107 [facility] MMOL/L LABORATORIES - [employer] [facility] HX Bicarbonate, 22 22 - 29 [facility] P/S MMOL/L LABORATORIES - [facility] [employer] [facility] Anion Gap 14 7 - 15 [facility] LABORATORIES - [employer] Glucose, S 81 70 - 140 [facility] MG/DL LABORATORIES - [facility] [employer] [facility] Sodium, S 140 135 - 145 [facility] MMOL/L LABORATORIES - [facility] [employer] [facility] Potassium, S 4.3 3.6 - 5.2 [facility] MMOL/L [facility] - [facility] [employer] Creatinine 2.6 (H) 0.6 - 1.1 [facility] MG/DL LABORATORIES - [facility] [employer] [facility] eGFR 19 (L) >60 [facility] Non-Black/Afric ML/MIN/BS LABORATORIES - an [place] A [employer] [facility] eGFR-Black/Afri 23 (L) >60 [facility] can [place] ML/MIN/BS LABORATORIES - [facility] BUN (Blood Urea 43 (H) 6 - 21 [facility] Nitrogen), S MG/DL LABORATORIES - [facility] [employer] [facility] Specimen Anatomical Collection Method Collection Time Receive d Time (Source) Location / / Volume Laterality 11/06/2014 5:22 AM 5 5:22 CDT AM CDT An Levin APRN, C.N.P., M.S.N. LAB BLOOD ADD- ON Performing Organization Address City/State/ZIP Code Phon e Number [facility] LABORATORIES - [address] [place], [place] [address] [facility] [employer] [facility] (ABNORMAL) CBC without Differential (11/06/2014 5:22 AM CDT) [facility] Method Time Signature Erythrocytes 4.32 3.90 - [facility] 5.03 LABORATORIES - X10(12)/L [facility] [employer] [facility] MCV 86.6 81.6 - [facility] 98.3 [place] LABORATORIES - [facility] [employer] Leukocytes 6.9 3.5 - [facility] 10.5 LABORATORIES - X10(9)/L [facility] [employer] [facility] Hemoglobin 11.6 (L) 12.0 - [facility] 15.5 G/DL LABORATORIES - [employer] Hematocrit 37.4 34.9 - [facility] 44.5 % LABORATORIES - [employer] [facility] RBC Distrib 15.2 11.9 - [facility] Width 15.5 % LABORATORIES - [facility] [employer] [facility] Platelet Count 165 150 - 450 [facility] X10(9)/L LABORATORIES - [employer] [facility] Specimen Anatomical Collection Method Collection Time Receive d Time (Source) Location / / Volume Laterality 11/06/2014 5:22 AM 5 5:22 CDT AM CDT An Levin APRN, C.N.P., M.S.N. LAB BLOOD ADD- ON Performing Organization Address City/[facility]/ZIP Code Phon e Number [facility] LABORATORIES - [address] (ABNORMAL) Cytomegalovirus Ab, IgM and IgG (11/05/2014 4:41 PM CDT) [facility] gist Method Time Signature Cytomegalovirus Negative Negative [facility] Ab, IgM, S LABORATORIES - [employer] [facility] Cytomegalovirus Positive Negative [facility] Ab, IgG, S (A) LABORATORIES - [employer] [facility] Specimen Anatomical Collection Method Collection Time Receive d Time (Source) Location / / Volume Laterality 11/05/2014 4:41 PM 5 4:41 CDT PM CDT Fracisco Napoles APRN.NJohan., M.S.N. LAB MICROBIOLO GY - BLOOD ORDERABLES Performing Organization Address [facility]/ZIP Code Phon e Number [facility] LABORATORIES - [address] [place] [phone] [employer] [facility] V&IRAD Vascular & Intervention (11/05/2014 10:13 AM CDT) Anatomical Region Laterality Modality N/A X-Ray Angiography Specimen (Source) Anatomical Collection Method Collection Time Re ceived Time Location / / Volume Laterality 11/05/2014 10:13 AM CDT Narrative 11/05/2014 5:56 PM CDT 05-Nov-2014 10:13:00 ??Exam: V&IRAD Vascular & Intervention Indications: RIGHT NEPHROSTOGRAM WITH UR ETERAL STENT PLACEMENT Transplanted renal pelvis ORIGINAL REPORT - 05-Nov-2014 17:56:00 V&IRAD Vascular & Intervention: SUMMARY: Nephrostogram shows significant interval decompression of the transplanted renal pelvis status post-placement of a percutaneous nephrostomy tube yesterday. Mild short-segment narrowing noted at the ureteropelvic junction. Successful placement of a 6-Egyptian x 26 cm in length double-J ureteral stent. A percutaneous nephrostomy tube was reinserted per the request of the transplant surgical service and was capped. TECHNIQUE/FINDINGS: The patient was prep ared and draped in usual sterile fashion about the recently placed percutaneous nephrostomy tube. Following a cutting department supervisor view, a nephrostogram was performed demonstrat ing significant interval decompression o f the transplanted renal pelvis as well as short-segment mild narrowing at the UPJ. Contrast was visualized to flow through this narrowing into the bladder. The n ephrostomy tube was removed over a torqu e wire, over which a 6-Egyptian Brite Tip sheath was placed. A [place] catheter and Glidewire were negotiated through this sheath and down the ureter into the bl adder. The Glidewire was exchanged for a n Amplatz wire, after which time, the 6- Egyptian sheath was exchanged for a 9-Egyptian peel-away sheath. A torque wire was also placed into the renal pelvis to serve as a Safety wire. Despite several attemp ts, an 8.5-Egyptian double-J ureteral stent could not be advanced beyond the level of the midureter. A 4 mm balloon was therefore gently inflated along the mid and distal ureter without visual ization of a waist or significant narrowing. Again, the 8.5-Egyptian double-J ureteral stent could not be advanced and therefore, a 6-Egyptian x 26 cm in length doubl e-J ureteral stent was advanced through the peel-away sheath with locking loops formed in the bladder and transplanted renal pelvis. Per request of the transplant surgical service, a new 8.5-Egyptian x 40 cm in length Mac-Loc was advanced over the torque wire that had served as the Safe-T wire with the locking loop formed in the transplanted renal pelvis. A repeat nephrostogram confirmed appropriate pos itioning as well as flow of contrast thr ough the double-J ureteral stent in the bladder. The new percutaneous nephrostomy tube was capped. No immediate complications. PREPROCEDURE: Patient seen, evaluated, h istory reviewed, and approved for sedation. Airway, heart, and lung examination satisfactory for sedation. Discussed risks, benefits, alternatives for procedure, and/or sedation and obtained informed co nsent. The patient understood the information and questions answered. Immediately prior to starting the procedure in the presence of the assisting personnel, a pr ocedural pause was conducted to verify c orrect patient identity and verification of procedure to be performed and as applicable, correct side and site, correct patient position, availability of implants , special equipment, or special requirem ents, and all image and specimen identification data. Moderate sedation was administered by a sedation nurse under my supervision. The roles and responsibilities of care team members, residents, and fel lows were discussed. Intraprocedural sedation time: 60.0 josselyn paulette Fluoro time: 18.6 minutes Electronically signed by: ?? Clay FRAGOSO [phone] 05-Nov-2014 17:56 ?Dennis Osman MD [phone] 05-Nov-2014 17:56 Procedure Note Geraldo Lopez M.D., Ph.D. - 11/16/19 18 05-Nov-2014 10:13:00 Exam: V&IRAD Vascul ar & Intervention Indications: RIGHT NEPHROSTOGRAM WITH UR ETERAL STENT PLACEMENT Transplanted renal pelvis ORIGINAL REPORT - 05-Nov-2014 17:56:00 V&IRAD Vascular & Intervention: SUMMARY: Nephrostogram shows significant interval decompression of the transplanted renal pelvis status post-placement of a percutaneous nephrostomy tube yesterday. Mild short-segment narrowing noted at the ureteropelvic junction. Successful place ment of a 6-Egyptian x 26 cm in length double-J ureteral stent. A percutaneous nephrostomy tube was reinserted per the request of the transplant surgical service and was capped. TECHNIQUE/FINDINGS: The patient was prep ared and draped in usual sterile fashion about the recently placed percutaneous nephrostomy tube. Following a cutting department supervisor view, a nephrostogram was performed demonstrating significant interval decompression of the transplant ed renal pelvis as well as short-segment mild narrowing at the UPJ. Contrast was visualized to flow through this narrowing into the bladder. The nephrostomy tube was removed over a torque wire, over which a 6-Frenc h Brite Tip sheath was placed. A [place] catheter and Glidewire were negotiated through this sheath and down the ureter into the bladder. The Glidewire was exchanged for an Amplatz wire, after which time, the 6-Fr ench sheath was exchanged for a 9-Egyptian peel-away sheath. A torque wire was also placed into the renal pelvis to serve as a Safety wire. Despite several attempts, an 8.5-Egyptian double-J ureteral stent could not be adv anced beyond the level of the midureter. A 4 mm balloon was therefore gently inflated along the mid and distal ureter without visualization of a waist or significant narrowing. Again, the 8.5-Egyptian double-J ureteral stent could not be advanced and therefore, a 6-Egyptian x 26 cm in length double-J ureteral stent was advanced through the peel-away sheath with locking loops formed in the bladder and transplanted renal pelvis. P er request of the transplant surgical service, a new 8.5-Egyptian x 40 cm in length Mac-Loc was advanced over the torque wire that had served as the Safe-T wire with the locking loop formed in the transplanted renal pe lvis. A repeat nephrostogram confirmed appropriate positioning as well as flow of contrast through the double-J ureteral stent in the bladder. The new percutaneous nephrostomy tube was capped. No immediate complicati ons. PREPROCEDURE: Patient seen, evaluated, h istory reviewed, and approved for sedation. Airway, heart, and lung examination satisfactory for sedation. Discussed risks, benefits, alternatives for procedure, and/or sedation and obtained informed consent. The patient u nderstood the information and questions answered. Immediately prior to starting the procedure in the presence of the assisting personnel, a procedural pause was conducted to verify correct patient identity and veri fication of procedure to be performed and as applicable, correct side and site, correct patient position, availability of implants, special equipment, or special requirements, and all image and specimen identification data. Moderate sedation was administered by a sedation nurse under my supervision. The roles and responsibilities of care team members, residents, and fellows were discussed. Intraprocedural sedation time: 60.0 josselyn paulette Fluoro time: 18.6 minutes Electronically signed by: Clay FRAGOSO [phone] 05-Nov-2014 17:56 Dennis Osman MD [phone] 05-Nov-2014 17:56 Steve Martínez Jr. D.O. IMG IR PROCEDURES BK Virus DNA by PCR (11/05/2014 7:08 AM CDT) [facility] Method Time Signature BK Virus PCR, Negative Negative [facility] Comment: ? ADDITIONAL INFORMATIO N ? Laboratory developed test. ? Specimen Anatomical Collection Method Collection Time Receive d Time (Source) Location / / Volume Laterality 11/05/2014 7:08 AM 5 7:08 CDT AM CDT Historical Provider LAB MICROBIOLOGY - BLOOD ORD ERABLES Performing Organization Address City/State/ZIP Code Phon e Number [facility] - [address] [place], [place] [address] [employer] [facility] (ABNORMAL) Phosphorus Inorganic (11/05/2014 7:08 AM CDT) Patholo gist Method Time Signature Phosphorus 4.9 (H) 2.5 - 4.5 [facility] (Inorganic), S MG/DL [facility] Specimen Anatomical Collection Method Collection Time Receive d Time (Source) Location / / Volume Laterality 11/05/2014 7:08 AM 5 7:08 CDT AM CDT Historical Provider LAB BLOOD ADD-ON Performing Organization Address City/[facility] Code Phon e Number [facility] LABORATORIES - [address] [place] [phone] [employer] [facility] (ABNORMAL) Electrolyte (Chem 4) Panel (11/05/2014 7:08 AM CDT) [facility] Method Time Signature Chloride, S 106 98 - 107 [facility] MMOL/L LABORATORIES - [employer] [facility] HX Bicarbonate, 22 22 - 29 [facility] P/S MMOL/L LABORATORIES - [employer] [facility] Creatinine 2.9 (H) 0.6 - 1.1 [facility] MG/DL LABORATORIES - [employer] eGFR 17 (L) >60 [facility] Non-Black/Afric ML/MIN/BS LABORATORIES - [place] A [employer] [facility] Anion Gap 16 (H) 7 - 15 [facility] LABORATORIES [facility] Glucose, S 74 70 - 140 [facility] MG/DL LABORATORIES - [employer] Sodium, S 144 135 - 145 [facility] MMOL/L LABORATORIES - [employer] [facility] Potassium, S 4.6 3.6 - 5.2 [facility] MMOL/L LABORATORIES - [employer] [facility] eGFR-Black/Afri 20 (L) >60 [facility] can [place] ML/MIN/BS LABORATORIES - A [employer] [facility] BUN (Blood Urea 44 (H) 6 - 21 [facility] Nitrogen), S MG/DL LABORATORIES - [employer] [facility] Specimen Anatomical Collection Method Collection Time Receive d Time (Source) Location / / Volume Laterality 11/05/2014 7:08 AM 5 7:08 CDT AM CDT Historical Provider LAB BLOOD ADD-ON Performing Organization Address City/State/ZIP Code Phon e Number [facility]IES - [address] [place] [phone] [employer] (ABNORMAL) CBC without Differential (11/05/2014 7:08 AM CDT) [facility] Method Time Signature Erythrocytes 4.38 3.90 - [facility] 5.03 LABORATORIES - X10(12)/L [facility] [employer] [facility] MCV 87.2 81.6 - [facility] 98.3 [place] LABORATORIES - [employer] [facility] RBC Distrib 15.5 11.9 - [facility] Width 15.5 % LABORATORIES - [employer] [facility] Platelet Count 171 150 - 450 [facility] X10(9)/L LABORATORIES - [employer] [facility] Hemoglobin 11.7 (L) 12.0 - [facility] 15.5 G/DL LABORATORIES - [employer] [facility] Hematocrit 38.2 34.9 - [facility] 44.5 % LABORATORIES - [employer] [facility] Leukocytes 6.7 3.5 - [facility] 10.5 LABORATORIES - X10(9)/L [facility] [employer] [facility] Specimen Anatomical Collection Method Collection Time Receive d Time (Source) Location / / Volume Laterality 11/05/2014 7:08 AM 5 7:08 CDT AM CDT Historical Provider LAB BLOOD ADD-ON Performing Organization Address City/[facility] Phon e Number [facility] - [address] [place], [place] [address] [employer] [facility] Tacrolimus Level (11/05/2014 7:08 AM CDT) Analysis Performed At Patho logist Time Signature Tacrolimus, B 7.9 5.0-15.0 [facility] (Trough) LABORATORIES - NG/ML [facility] [employer] Tacrolimus . [facility] Blood Date of LABORATORIES - Last Dose [facility] Comment: Not Specified Tacrolimus Time of Last Dose . M [facility] [place] Comment: Not Specified Tacrolimus Blood Dose, mg . MG [facility] - [employer] [facility] Comment: Not Specified Specimen Anatomical Collection Method Collection Time Receive d Time (Source) Location / / Volume Laterality 11/05/2014 7:08 AM 5 7:08 CDT AM CDT Historical Provider LAB BLOOD NON ADD-ON Performing Organization Address City/[facility] Phon e Number [facility] - [address] [place] [phone] [employer] [facility] EBV Ab Profile (11/05/2014 7:08 AM CDT) Patholo gist Method Time Signature EBNA Ab, S Positive Negative [facility] Interpretation . [facility] Comment: Results suggest past infection. ? ADDITIONAL INFORMATIO N ? In most populations, at least 90% of the adult population ? will have been infected with EBV sometim e in the past and ? therefore, will be positive for anti-VCA /IgG and anti- ? EBNA. Antibodies to EBNA develop 6-8 wee ks after primary ? infection and remain present for life. ? ?Presence of VCA/ ? IgM antibodies indicates recent primary infection with ? EBV. ? EBV VCA IgM Ab, S Negative Negative [facility] EBV VCA IgG Ab, S Positive Negative [facility] Specimen Anatomical Collection Method Collection Time Receive d Time (Source) Location / / Volume Laterality 11/05/2014 7:08 AM 5 7:08 CDT AM CDT Historical Provider LAB MICROBIOLOGY - BLOOD ORD ERABLES Performing Organization Address City/State/ZIP Code Phon e Number [facility] - [address] [place], [place] [address] [employer] [facility] BK Virus, Molecular Detection, Quantitative, PCR, Urine (11/04/2014 8:40 PM CDT) Patholo gist Method Time Signature BK Virus PCR, None None [facility] Quant, U detected LABORATORIES - [employer] [facility] Comment: ? ADDITIONAL INFORMATIO N ? Laboratory developed test. ? Specimen Anatomical Collection Method Collection Time Receive d Time (Source) Location / / Volume Laterality 11/04/2014 8:40 PM 5 8:40 CDT PM CDT An Levin APRN, C.N.P., M.S.N. LAB BODY FLUID S AND STOOLS ORDERABLES Performing Organization Address City/State/ZIP Code Phon e Number [facility] - [address] [place], [place] [address] [employer] [facility] V&IRAD Vascular & Intervention (11/04/2014 1:04 PM CDT) Anatomical Region Laterality Modality N/A X-Ray Angiography Specimen (Source) Anatomical Collection Method Collection Time Re ceived Time Location / / Volume Laterality 11/04/2014 1:04 PM CDT Narrative 11/04/2014 5:57 PM CDT 04-Nov-2014 13:04:00 ??Exam: V&IRAD Vascular & Intervention Indications: Hydronephrosis;RIGHT PNTP W ITH STENT PLACEMENT ORIGINAL REPORT - 04-Nov-2014 17:57:00 V&IRAD Vascular & Intervention: SUMMARY: Successful placement of a percu taneous nephrostomy tube in the right pelvic transplant kidney. A wire could not be advanced beyond the level of the UPJ given the degree of hydronephrosis, and t hus the plan is for the collecting syste m to decompress overnight via the nephrostomy tube with a scheduled return to Interventional Radiology tomorrow for a nephrostogram and repeat attempted antegrade ureteral stent placement. ?? TECHNIQUE/FINDINGS: The patient was prep ped and draped in the usual sterile fashion over the right lower abdomen and pelvis. Under ultrasound guidance, a 21 gauge needle was used to access a dilated low er pole calyx in the transplanted kidney . The wire was advanced into the renal pelvis, over which an AccuStick sheath was advanced. A small amount of contrast was injected via the sheath, confirming pos itioning within the collecting system. A [place] Head catheter and Glidewire were advanced to the AccuStick sheath, though could not be negotiated down the ureter. The decision was made to leave a nephros elif tube in place with plans for repeat attempt at antegrade stent placement once the renal pelvis decompresses. The tract was therefore dilated, after which an 8.5F Mac-Loc catheter was advanced with locking loop formed in the renal pelvis. Appropriate position was confirmed with a repeat contrast injection. Tube was secured to the skin with 2-0 Prolene and hooked to bag drainage. No immediate complications. ?? PREPROCEDURE: Patient seen, evaluated, h istory [...] sedation was administered by sedation nurse under my supervision. The roles and responsibilities of care team members, residents, and fellows were discussed. ?? Intraprocedure sedation time: 30 minutes . ?? Fluoro time: ??3.5 minutes. Electronically signed by: ?? Clay FRAGOSO [phone] 04-Nov-2014 17:57 ?Dennis Osman MD [phone] 04-Nov-2014 17:57 Procedure Note Geraldo Lopez M.D., Ph.D. 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 A wire could not be advanced beyond the level of the UPJ given the degree of hydronephrosis, and thus the plan is for the collecting system to decompress overnight via the nephrostomy tube with a scheduled return to Interventional Radiology tomorrow for a nephrostogram and repeat attempted antegrade ureteral stent placement. TECHNIQUE/FINDINGS: The patient was prep ped and draped in the usual sterile fashion over the right lower abdomen and pelvis. Under ultrasound guidance, a 21 gauge needle was used to access a dilated lower pole calyx in the transplanted kidney. The wire was advanced into the renal pelvis, over which an AccuStick sheath was advanced. A small amount of contrast was injected via the sheath, confirming positioning within the collecting system. A [place] catheter and Glidew tonya were advanced to the AccuStick sheath, though could not be negotiated down the ureter. The decision was made to leave a nephrostomy tube in place with plans for repeat attempt at antegrade stent placement once the renal pelvis decompresses. The tract was therefore dilated, after which an 8.5F Mac-Loc catheter was advanced with locking loop formed in the renal pelvis. Appropriate position was confirmed with a repeat contrast injecti on. Tube was secured to the skin with 2- 0 Prolene and hooked to bag drainage. No immediate complications. PREPROCEDURE: Patient seen, evaluated, h istory [...] edation was administered by sedation nurse under my supervision. The roles and responsibilities of care team members, residents, and fellows were discussed. Intraprocedure sedation time: 30 minutes . Fluoro time: 3.5 minutes. Electronically signed by: Clay FRAGOSO [phone] 04-Nov-2014 17:57 Dennis Osman MD [phone] 04-Nov-2014 17:57 Steve Martínez Jr., D.O. IMG IR PROCEDURES Tacrolimus Level (11/04/2014 10:13 AM CDT) Analysis Performed At Patho logist Time Signature Tacrolimus, B 7.0 5.0-15.0 [facility] (Trough) LABORATORIES - NG/ML [facility] [employer] [facility] Tacrolimus . [facility] Blood Date of LABORATORIES - Last Dose [facility] Comment: Not Specified Tacrolimus Time of Last Dose . [facility] Comment: Not Specified Tacrolimus Blood Dose, mg . MG [facility] Comment: Not Specified Specimen Anatomical Collection Method Collection Time Receive d Time (Source) Location / / Volume Laterality 11/04/2014 10:13 11/04/2014 AM CDT 10:13 AM CDT An Levin APRN, C.N.P., M.S.N. LAB BLOOD NON ADD-ON Performing Organization Address City/State/ZIP Code Phon e Number [facility] - [address] [place] [phone] [employer] [facility] (ABNORMAL) Electrolyte (Chem 4) Panel (11/04/2014 10:12 AM CDT) [facility] Time Signature Sodium, S 145 135 - 145 [facility] MMOL/L LABORATORIES [facility] Potassium, S 4.5 3.6 - 5.2 [facility] MMOL/L LABORATORIES - [employer] [facility] Creatinine 3.2 (H) 0.6 - 1.1 [facility] MG/DL LABORATORIES - [employer] [facility] eGFR 15 (L) >60 [facility] Non-Black/Afric ML/MIN/BS LABORATORIES - [place] A [employer] [facility] eGFR-Black/Afri 18 (L) >60 [facility] can [place] ML/MIN/BS LABORATORIES - [facility] BUN (Blood Urea 49 (H) 6 - 21 [facility] Nitrogen), S MG/DL [facility] Chloride, S 107 98 - 107 [facility] MMOL/L LABORATORIES - [employer] [facility] HX Bicarbonate, 20 (L) 22 - 29 [facility] P/S MMOL/L LABORATORIES - [employer] [facility] Anion Gap 18 (H) 7 - 15 [facility] Glucose, S 85 70 - 140 [facility] MG/DL LABORATORIES - [employer] [facility] Specimen Anatomical Collection Method Collection Time Receive d Time (Source) Location / / Volume Laterality 11/04/2014 10:12 11/04/2014 AM CDT 10:12 AM CDT An Levin APRN, C.N.P., M.S.N. LAB BLOOD ADD- ON Performing Organization Address City/State/ZIP Code Phon e Number [facility] - [address] [place] [address] [employer] [facility] PT (Prothrombin Time) with INR (11/04/2014 10:12 AM CDT) [facility] Method Time Signature Prothrombin 12.2 9.5 - 13.8 [facility] Time, P SEC LABORATORIES - [employer] [facility] INR 1.0 0.8 - 1.2 [facility] Specimen Anatomical Collection Method Collection Time Receive d Time (Source) Location / / Volume Laterality 11/04/2014 10:12 11/04/2014 AM CDT 10:12 AM CDT An Levin APRN, Fracisco.N.P., M.S.N. LAB BLOOD ADD- ON Performing Organization Address City/[facility]/ZIP Code Phon e Number [facility] - [address] CBC without Differential (11/04/2014 10:12 AM CDT) Analysis Performed At Patho logist Time Signature Hemoglobin 12.1 12.0 - [facility] 15.5 G/DL [facility] Hematocrit 38.8 34.9 - [facility] 44.5 % [facility] RBC Distrib 15.3 11.9 - [facility] Width 15.5 % [facility] Platelet Count 158 150 - 450 [facility] X10(9)/L [facility] Comment: Results confirmed by smear. Erythrocytes 4.42 3.90 - 5.03 X10(12)/L [facility] MCV 87.8 81.6 - 98.[address] [facility] LAB ORATORIES - [employer] [facility] Leukocytes 6.0 3.5 - 10.5 X10(9)/L [facility] IC [facility] Comment: Results confirmed by smear. Specimen Anatomical Collection Method Collection Time Receive d Time (Source) Location / / Volume Laterality 11/04/2014 10:12 11/04/2014 AM CDT 10:12 AM CDT An Lvein APRN, C.N.P., M.S.N. LAB BLOOD ADD- ON Performing Organization Address City/[facility] Phon e Number [facility] - [address] US Abdomen Limited (11/04/2014 9:11 AM CDT) Anatomical Region Laterality Modality Abdomen N/A Ultrasound Specimen (Source) Anatomical Collection Method Collection Time Re ceived Time Location / / Volume Laterality 11/04/2014 9:11 AM CDT Impressions 11/04/2014 9:16 AM CDT ??Severe hydronephrosis FINDINGS: Limited ultrasound of the right lower qu adrant transplanted kidney demonstrates severe hydronephrosis which has markedly worsened since the ultrasound performed 10/31/2014. Findings were discussed with Dr. Martínez ([id number]) who decided to fore go biopsy of the transplanted kidney at this time. Electronically signed by: ?? Whitney Mo ?? [phone] 04-Nov-2014 09:16 Narrative 11/04/2014 9:16 AM CDT 04-Nov-2014 09:11:00 ??Exam: US Retroperitoneal Limited Indications: [id number] - Kidney Tra nsplant Guided Biopsy - (RIGHT) - [place] in allograft - tac levels 10 - ? ATN - viral CN-assoc toxicity - need light - C4D-IF ORIGINAL REPORT - 04-Nov-2014 09:16:00 EXAM: ??US Retroperitoneal Limited COMPARISON: ??10/31/2014 Procedure Note Jose Mo M.D. - 11/15/2017Formatti ng of this note might be different from the original. 04-Nov-2014 09:11:00 Exam: US Retroperit soto Limited Indications: [id number] - Kidney Tra nsplant Guided Biopsy - (RIGHT) - [place] in allograft - tac levels 10 - ? ATN - viral CN-assoc toxicity - need light - C4D-IF ORIGINAL REPORT - 04-Nov-2014 09:16:00 EXAM: US Retroperitoneal Limited COMPARISON: 10/31/2014 IMPRESSION: Severe hydronephrosis FINDINGS: Limited ultrasound of the right lower qu adrant transplanted kidney demonstrates severe hydronephrosis which has markedly worsened since the ultrasound performed 10/31/2014. Findings were discussed with Dr. Martínez ([id number]) who decided to forego biopsy of the transplanted kidney at this time. Electronically signed by: Whitney Mo MD [phone] 04-Nov-2014 09:16 Whitney Rasheed Jr.ODavi IMG US PROCEDURES APTT (Activated Partial Thromboplastin Time) (11/03/2014 4:48 PM CDT) P athologist Signature APTT, P 32 28 - 38 SEC [facility] - [employer] [facility] Specimen Anatomical Collection Method Collection Time Receive d Time (Source) Location / / Volume Laterality 11/03/2014 4:48 PM 5 4:48 CDT PM CDT Whitney Rasheed Jr.ODavi LAB BLOOD ADD-ON Performing Organization Address City/State/ZIP Code Phon e Number [facility] - [address] [place], [place] [address] [employer] [facility] PT (Prothrombin Time) with INR (11/03/2014 4:48 PM CDT) [facility] Method Time Signature Prothrombin 11.7 9.5 - 13.8 [facility] Time, P SEC LABORATORIES - [employer] [facility] [employer] [facility] INR 1.0 0.8 - 1.2 [facility] - [employer] [facility] Specimen Anatomical Collection Method Collection Time Receive d Time (Source) Location / / Volume Laterality 11/03/2014 4:48 PM 5 4:48 CDT PM CDT Steve Martínez Jr., D.O. LAB BLOOD ADD-ON Performing Organization Address City/[facility] Phon e Number [facility] - [address] [place] [address] [facility] [employer] [facility] CBC without Differential (11/03/2014 11:42 AM CDT) [facility] Signature Hemoglobin 12.0 12.0 - [facility] 15.5 G/DL [facility] Hematocrit 38.5 34.9 - [facility] 44.5 % [facility] RBC Distrib Width 15.3 11.9 - [facility] 15.5 % [facility] Platelet Count 164 150 - 450 [facility] X10(9)/L [facility] Leukocytes 6.8 3.5 - [facility] 10.5 LABORATORIES - X10(9)/L [facility] Erythrocytes 4.41 3.90 - [facility] 5.03 LABORATORIES - X10(12)/L [facility] MCV 87.3 81.6 - [facility] 98.3 FL [facility] - [employer] [facility] Specimen Anatomical Collection Method Collection Time Receive d Time (Source) Location / / Volume Laterality 11/03/2014 11:42 11/03/2014 AM CDT 11:42 AM CDT Dara Rodriges APRN, C.N.P. LAB BLOOD ADD-ON Performing Organization Address City/[facility] Phon e Number [facility] - [address] [place] [phone] [employer] [facility] [employer] [facility] (ABNORMAL) Electrolyte (Chem 4) Panel (11/03/2014 11:42 AM CDT) [facility] Method Time Signature Chloride, S 104 98 - 107 [facility] MMOL/L [facility] HX Bicarbonate, 22 22 - 29 [facility] P/S MMOL/L [facility] Creatinine 3.4 (H) 0.6 - 1.1 [facility] MG/DL LABORATORIES - [facility] [employer] [facility] eGFR 14 (L) >60 [facility] Non-Black/Afric ML/MIN/BS LABORATORIES - an [place] A [employer] [facility] Anion Gap 14 7 - 15 [facility] - [employer] [facility] Glucose, S 91 70 - 140 [facility] MG/DL [facility] - [facility] [employer] [facility] Sodium, S 140 135 - 145 [facility] MMOL/L [facility] - [facility] [employer] [facility] Potassium, S 4.7 3.6 - 5.2 [facility] MMOL/L [facility] - [facility] [employer] [facility] eGFR-Black/Afri 17 (L) >60 [facility] can [place] ML/MIN/BS LABORATORIES - [facility] BUN (Blood Urea 46 (H) 6 - 21 [facility] Nitrogen), S MG/DL [facility] - [facility] [employer] [facility] Specimen Anatomical Collection Method Collection Time Receive d Time (Source) Location / / Volume Laterality 11/03/2014 11:42 11/03/2014 AM CDT 11:42 AM CDT Dara Rodriges APRN, CDaviN.P. LAB BLOOD ADD-ON Performing Organization Address City/State/ZIP Code Phon e Number [facility] - [address] [place], [place] [address] [employer] [facility] Microbiology Reports (11/02/2014 5:56 PM CDT) Specimen Anatomical Collection Method Collection Time Receive d Time (Source) Location / / Volume Laterality 11/02/2014 5:56 PM 5 6:27 CDT PM CDT Narrative [facility] - [facility] - 11/04/2014 7:55 AM CDT 02-NOV-2014 URINE, MIDSTREAM, ?SoftOrd# [id number] ?(Ordered 02-NOV-2014; Collec rebecca 02-NOV-2014 17:56; Received 02-NOV-2014 18:27) ?[facility] ?BACTERIAL CULTURE, AEROBIC + GAONA SC ? (Reported 04-NOV-2014 07:55) FINAL ?Mixed shakir. Procedure Note 11/27/2017 02-NOV-2014 URINE, MIDSTREAM, SoftOrd# [id number] (Ordered 02-NOV-2014; Collected 2014 17:56; Received 02-NOV-2014 18:27) [facility] BACTERIAL CULTURE, AEROBIC + SUSC (Rep orted 04-NOV-2014 07:55) FINAL Mixed shakir. Historical Provider LAB MICROBIOLOGY - GENERAL O RDERABLES Performing Organization Address City/State/ZIP Code Phon e Number [facility] - [address] [place], [place] [address] [employer] [facility] (ABNORMAL) Urinalysis with Microscopic (11/02/2014 5:56 PM CDT) [facility] gist Method Time Signature Source Midstream [facility] Appearance Normal Normal [facility] pH, 24 HR, U 5.7 4.5 - 8.0 [facility] Protein/Osmola 0.54 (H) <0.27 [facility] lity RATIO [facility] Comment: ? ADDITIONAL INFORMATIO N ? On 03/02/2014 the total protein assay me thod changed resulting ? in approximately a 20% increase in prote in values. ? Glucose 5 0 - 15 MG/DL [facility] Protein, U 16 <22 MG/DL [facility] Comment: ? ADDITIONAL INFORMATIO N ? On 03/02/2014 the total protein assay me thod changed resulting ? in approximately a 20% increase in prote in values. ? Hemoglobin, QL Negative Negative [facility] Osmolality, 24 HR, U 299 150 - 1150 MOSM/KG [facility] S Predicted 24 Hr Protein 379 MG/24 H [facility] S Predicted Range 94-1535 MG/[address] [facility] Specimen Anatomical Collection Method Collection Time Receive d Time (Source) Location / / Volume Laterality 11/02/2014 5:56 PM 5 5:56 CDT PM CDT Historical Provider LAB URINE ORDERABLES Performing Organization Address City/State/ZIP Code Phon e Number [facility] - [address] [place], [place] [address] [employer] [facility] Gram Stain, Urine (11/02/2014 5:56 PM CDT) P athologist Signature Gram's Stain, . [facility] Screen, U [facility] Comment: Screen positive. See Gram Stain Confirma tory for staining ? result. ? Specimen Anatomical Collection Method Collection Time Receive d Time (Source) Location / / Volume Laterality 11/02/2014 5:56 PM 5 5:56 CDT PM CDT Historical Provider LAB URINE ORDERABLES Performing Organization Address City/[facility] Phon e Number [facility] LABORATORIES - [address] [place] [phone] [employer] [facility] (ABNORMAL) Microscopic Manual (11/02/2014 5:56 PM CDT) [facility] gist Method Time Signature Microscopy Abnormal [facility] LABORATORIES - [facility] [employer] [facility] WBC 1-3 1-3 [facility] (Males); LABORATORIES - 1-10 [facility] /HPF Squamous 1-3 /HPF [facility] Epithelial LABORATORIES - [facility] [employer] [facility] Bacteria Present (A) [facility] Specimen Anatomical Collection Method Collection Time Receive d Time (Source) Location / / Volume Laterality 11/02/2014 5:56 PM 5 5:56 CDT PM CDT Historical Provider LAB URINE ORDERABLES Performing Organization Address City/[facility]/ZIP Code Phon e Number [facility]IES - [address] [phone] [employer] [facility] (ABNORMAL) Gram Stain, Confirmatory, Urine (11/02/2014 5:56 PM CDT) [facility] gist Method Time Signature Grams Stain, Positive (A) [facility] Confirmatory, LABORATORIES - Urine [employer] [facility] Comment: Many Gram-positive bacilli Specimen Anatomical Collection Method Collection Time Receive d Time (Source) Location / / Volume Laterality 11/02/2014 5:56 PM 5 5:56 CDT PM CDT Historical Provider LAB URINE ORDERABLES Performing Organization Address City/[facility] Phon e Number [facility] - [address] [phone] [employer] [facility] CBC without Differential (11/02/2014 5:06 AM CDT) [facility] gist Method Time Signature Erythrocytes 4.42 3.90 - [facility] 5.03 LABORATORIES - X10(12)/L [employer] [facility] MCV 88.0 81.6 - [facility] 98.3 [place] LABORATORIES - [employer] RBC Distrib Width 15.1 11.9 - [facility] 15.5 % LABORATORIES - [employer] [facility] Platelet Count 161 150 - 450 [facility] X10(9)/L LABORATORIES - [employer] [facility] Hemoglobin 12.0 12.0 - [facility] 15.5 G/DL LABORATORIES - [employer] [facility] Hematocrit 38.9 34.9 - [facility] 44.5 % LABORATORIES - [employer] [facility] Leukocytes 6.9 3.5 - [facility] 10.5 LABORATORIES - X10(9)/L [employer] [facility] Specimen Anatomical Collection Method Collection Time Receive d Time (Source) Location / / Volume Laterality 11/02/2014 5:06 AM 5 5:06 CDT AM CDT Dara Rodriges APRN, C.N.P. LAB BLOOD ADD-ON Performing Organization Address City/[facility]/ZIP Code Phon e Number [facility] - [address], [place] [address] [employer] [facility] Tacrolimus Level (11/02/2014 5:06 AM CDT) [facility] [employer] Method Time Signature Tacrolimus, B 10.1 5.0-15.0 [facility] (Trough) LABORATORIES - NG/ML [employer] [facility] Tacrolimus [facility] Blood Date of 5 LABORATORIES - Last Dose [employer] [facility] Tacrolimus . [facility] Time of Last LABORATORIES - Dose [employer] [facility] [employer] [facility] Comment: Not Specified Tacrolimus Blood Dose, mg . MG [facility] LABORATORIES - [employer] Comment: Not Specified Specimen Anatomical Collection Method Collection Time Receive d Time (Source) Location / / Volume Laterality 11/02/2014 5:06 AM 5 5:06 CDT AM CDT Dara Rodriges APRN, C.N.P. LAB BLOOD NON ADD-ON Performing Organization Address City/[facility]/ZIP Code Phon e Number [facility] - [address] [place], [place] [address] [employer] [facility] (ABNORMAL) Electrolyte (Chem 4) Panel (11/02/2014 5:06 AM CDT) [employer] Method Time Signature Chloride, S 106 98 - 107 [facility] MMOL/L LABORATORIES [facility] HX Bicarbonate, 23 22 - 29 [facility] P/S MMOL/L LABORATORIES - [employer] [facility] Creatinine 2.6 (H) 0.6 - 1.1 [facility] MG/DL LABORATORIES - [employer] [facility] eGFR 19 (L) >60 [facility] Non-Black/Afric ML/MIN/BS LABORATORIES - an [place] A [employer] [facility] eGFR-Black/Afri 23 (L) >60 [facility] can [place] ML/MIN/BS LABORATORIES - A [employer] [facility] BUN (Blood Urea 40 (H) 6 - 21 [facility] Nitrogen), S MG/DL LABORATORIES - [employer] Sodium, S 143 135 - 145 [facility] MMOL/L LABORATORIES - [employer] [facility] Potassium, S 4.4 3.6 - 5.2 [facility] MMOL/L LABORATORIES - [employer] [facility] Anion Gap 14 7 - 15 [facility] LAB[facility]ATORIES - [employer] [facility] Glucose, S 78 70 - 140 [facility] MG/DL LABORATORIES - [employer] [facility] Specimen Anatomical Collection Method Collection Time Receive d Time (Source) Location / / Volume Laterality 11/02/2014 5:06 AM 5 5:06 CDT AM CDT Dara Rodriges APRN C.N.P. LAB BLOOD ADD-ON Performing Organization Address City/State/[facility] Code Phon e Number [facility] - [address] [phone] [employer] [facility] Tacrolimus Level (11/01/2014 7:33 AM CDT) Analysis Performed At [facility] logist Time Signature Tacrolimus, B 10.2 5.0-15.0 [facility] (Trough) LABORATORIES - NG/ML [employer] [facility] [employer] [facility] Tacrolimus . [facility] Blood Date of LABORATORIES - Last Dose [employer] [facility] [employer] [facility] Comment: Not Specified Tacrolimus Time of Last Dose . M [facility] LABORATORIES [facility] Comment: Not Specified Tacrolimus Blood Dose, mg . MG [facility] LABORATORIES - [employer] [facility] Comment: Not Specified Specimen Anatomical Collection Method Collection Time Receive d Time (Source) Location / / Volume Laterality 11/01/2014 7:33 AM 5 7:33 CDT AM CDT Historical Provider LAB BLOOD NON ADD-ON Performing Organization Address City/[facility] Code Phon e Number [facility] - [address] CBC without Differential (11/01/2014 12:42 AM CDT) [facility] gist Method Time Signature Hemoglobin 12.7 12.0 - [facility] 15.5 G/DL LABORATORIES - [employer] [facility] Hematocrit 40.6 34.9 - [facility] 44.5 % LABORATORIES - [employer] [facility] Erythrocytes 4.62 3.90 - [facility] 5.03 LABORATORIES - X10(12)/L [employer] [facility] MCV 87.9 81.6 - [facility] 98.3 [place] LABORATORIES - [employer] [facility] RBC Distrib Width 15.3 11.9 - [facility] 15.5 % LABORATORIES - [employer] [facility] Platelet Count 165 150 - 450 [facility] X10(9)/L LABORATORIES - [employer] [facility] Leukocytes 8.3 3.5 - [facility] 10.5 LABORATORIES - X10(9)/L [employer] [facility] Specimen Anatomical Collection Method Collection Time Receive d Time (Source) Location / / Volume Laterality 11/01/2014 12:42 11/01/2014 AM CDT 12:42 AM CDT Erica Duff APRN, C.N.P., M.S.N. LAB BLOOD ADD- ON Performing Organization Address City/State/ZIP Code Phon e Number [facility] - [address] [place], [place] [address] [employer] [facility] (ABNORMAL) Electrolyte (Chem 4) Panel (11/01/2014 12:42 AM CDT) [facility] gist Method Time Signature Sodium, S 141 135 - 145 [facility] MMOL/L LABORATORIES [facility] Potassium, S 4.8 3.6 - 5.2 [facility] MMOL/L [facility] - [employer] [facility] Creatinine 2.5 (H) 0.6 - 1.1 [facility] MG/DL [facility] - [employer] [facility] eGFR 20 (L) >60 [facility] Non-Black/Afric ML/MIN/BS LABORATORIES - [place] A [employer] [facility] eGFR-Black/Afri 24 (L) >60 [facility] can [place] ML/MIN/BS LABORATORIES - [facility] BUN (Blood Urea 40 (H) 6 - 21 [facility] Nitrogen), S MG/DL LABORATORIES - [employer] [facility] Chloride, S 104 98 - 107 [facility] MMOL/L LABORATORIES [facility] HX Bicarbonate, 21 (L) 22 - 29 [facility] P/S MMOL/L [facility] Anion Gap 16 (H) 7 - 15 [facility] - [employer] [facility] Glucose, S 114 70 - 140 [facility] MG/DL LABORATORIES - [employer] [facility] Specimen Anatomical Collection Method Collection Time Receive d Time (Source) Location / / Volume Laterality 11/01/2014 12:42 11/01/2014 AM CDT 12:42 AM CDT Erica Duff APRN, C.N.P., M.S.N. LAB BLOOD ADD- ON Performing Organization Address City/State/ZIP Code Phon e Number [facility] - [address] [place], [place] [address] [employer] [facility] US Kidney Transplant Doppler (10/31/2014 11:45 AM CDT) Anatomical Region Laterality Modality Abdomen, Pelvis, Renal N/A Ultrasound Specimen (Source) Anatomical Collection Method Collection Time Re ceived Time Location / / Volume Laterality 10/31/2014 11:45 AM CDT Impressions 10/31/2014 1:35 PM CDT ??No interval change. Mild renal transplant hydronephrosis. FINDINGS: TRANSPLANT DATE: ??2007 [place] [facility] DATA Transplant Renal Length: ??12.6cm Parenchymal Echogenicity: ??Normal Renal Mass: ??No Hydronephrosis: ??Yes, mild, unchanged Peritransplant Fluid Collection: ??No DOPPLER DATA/IMPRESSION Intrarenal RI: 0.67 Upper 0.59 Mid 0.60 Lower Intrarenal RI: ??Normal Iliac Artery Velocity: 117cm/sec above anastomosis) 99cm/sec (near anastomosis) Renal Artery Velocity: 34cm/sec Prox (anastomosis) 34cm/sec Mid 55cm/sec Distal Renal to Iliac Artery Velocity Ratio (RI R): ??0.29 Renal Artery: Normal Renal Vein Patency: ??Patent Common Femoral Artery: Right: ??Triphasic Additional Comments/Comparison: ??No int erval change. Electronically signed by: ?? Dennis Reyez MD [phone] 31-Oct-2014 13:3 5 Narrative 10/31/2014 1:35 PM CDT 31-Oct-2014 11:45:00 ??Exam: US Renal Transplant w-doppler Indications: [id number] - Retro Kidn ey - (BOTH) - renal failure acute - please eval pt with history of transplant with acute kidney injury for any obstructive or abnormalities ORIGINAL REPORT - 31-Oct-2014 13:35:00 EXAM: ??US Renal Transplant with color a nd spectral Doppler analysis COMPARISON: ??Renal pantograph setter ultrasoun d 08/10/2014 and 08/05/2014 Procedure Note Singh Reyez M.D. - 11/15/2017Formatti ng of this note might be different from the original. 31-Oct-2014 11:45:00 Exam: US Renal Matthews splant w-doppler Indications: [id number] - Retro Kidn ey - (BOTH) - renal failure acute - please eval pt with history of transplant with acute kidney injury for any obstructive or abnormalities ORIGINAL REPORT - 31-Oct-2014 13:35:00 EXAM: US Renal Transplant with color and spectral Doppler analysis COMPARISON: Renal pantograph setter ultrasound 08/10/2014 and 08/05/2014 IMPRESSION: No interval change. Mild lamar al transplant hydronephrosis. FINDINGS: TRANSPLANT DATE: 2007 [place] [facility] DATA Transplant Renal Length: 12.6cm Parenchymal Echogenicity: Normal Renal Mass: No Hydronephrosis: Yes, mild, unchanged Peritransplant Fluid Collection: No DOPPLER DATA/IMPRESSION Intrarenal RI: 0.67 Upper 0.59 Mid 0.60 Lower Intrarenal RI: Normal Iliac Artery Velocity: 117cm/sec above anastomosis) 99cm/sec (near anastomosis) Renal Artery Velocity: 34cm/sec Prox (anastomosis) 34cm/sec Mid 55cm/sec Distal Renal to Iliac Artery Velocity Ratio (RI R): 0.29 Renal Artery: Normal Renal Vein Patency: Patent Common Femoral Artery: Right: Triphasic Additional Comments/Comparison: No inter raya change. Electronically signed by: Dennis Reyez MD [phone] 31-Oct-2014 13:3 5 Bill Cruz M.D. IM US PROCEDURES Microbiology Reports (10/31/2014 10:04 AM CDT) Specimen Anatomical Collection Method Collection Time Receive d Time (Source) Location / / Volume Laterality 10/31/2014 10:04 10/31/2014 AM CDT 10:05 AM CDT Narrative [facility] - 11/01/2014 8:02 AM CDT 31-OCT-2014 URINE, CATHETERIZED, ? SoftOrd# [id number] ?(Ordered 31-OCT-2014; Collec rebecca 31-OCT-2014 10:04; Received 31-OCT-2014 13:04) ?[facility] ?BACTERIAL CULTURE, AEROBIC + GAONA SC ? (Reported 01-NOV-2014 08:02) FINAL ?Mixed shakir. Procedure Note 11/27/2017 31-OCT-2014 URINE, CATHETERIZED, SoftOr d# [id number] (Ordered 31-OCT-2014; Collected 2014 10:04; Received 31-OCT-2014 13:04) [facility] BACTERIAL CULTURE, AEROBIC + SUSC (Rep orted 01-NOV-2014 08:02) FINAL Mixed shakir. Fracisco Villanueva APRN.N.P., D.N.P. LAB MICROBIOLOGY - GENERAL ORDERABLES Performing Organization Address City/State/ZIP Code Phon e Number [facility] - [address] [place], [place] [address] [employer] [facility] (ABNORMAL) Urinalysis with Microscopic (10/31/2014 10:04 AM CDT) [facility] gist Method Time Signature Osmolality, 300 150 - 1150 [facility] 24 HR, U MOSM/KG [facility] Hemoglobin, Trace (A) Negative [facility] Comment . [facility] Comment: Micro done on <10 mL pH, 24 HR, U 6.9 4.5 - 8.0 [facility] Source Void [facility] Appearance Normal Normal [facility] Glucose 2 0 - 15 MG/DL [facility] Protein, U 12 <22 MG/DL [facility] Comment: ? ADDITIONAL INFORMATIO N ? On 03/02/2014 the total protein assay me thod changed resulting ? in approximately a 20% increase in prote in values. ? Protein/Osmolality 0.40 (H) <0.27 RATIO [facility] Comment: ? ADDITIONAL INFORMATIO N ? On 03/02/2014 the total protein assay me karissaod changed resulting ? in approximately a 20% increase in prote in values. ? Predicted 24 Hr Protein 291 MG/24 H [facility] Predicted Range 72-1179 MG/24 H [facility] Specimen Anatomical Collection Method Collection Time Receive d Time (Source) Location / / Volume Laterality 10/31/2014 10:04 10/31/2014 AM CDT 10:04 AM CDT Praveen Liz APRN C.N.P., D.N.P. LAB URINE ORDERAB LES Performing Organization Address City/State/ZIP Code Phon e Number [facility] - [address] [place], [place] [address] [employer] [facility] Microscopic Manual (10/31/2014 10:04 AM CDT) Patholo gist Method Time Signature Microscopy Normal [facility] Squamous 1-3 /HPF [facility] Epithelial [facility] Specimen Anatomical Collection Method Collection Time Receive d Time (Source) Location / / Volume Laterality 10/31/2014 10:04 10/31/2014 AM CDT 10:04 AM CDT Praveen Liz APRN, C.N.P., Nicola.P. LAB URINE ORDERAB LES Performing Organization Address City/State/ZIP Code Phon e Number [facility] - [address] [place], [place] [address] [employer] [facility] Gram Stain, Urine (10/31/2014 10:04 AM CDT) athologist Signature Source . [facility] - [employer] [facility] Comment: REVISED RESULTS ? PREVIOUSLY REPORTED A S ? Catheter (Reported 10/31/2014 10:04) ? Gram's Stain, Screen, U Negative [facility] [place] - [employer] [facility] Specimen Anatomical Collection Method Collection Time Receive d Time (Source) Location / / Volume Laterality 10/31/2014 10:04 10/31/2014 AM CDT 10:04 AM CDT Praveen Liz APRN, Fracisco.N.P., D.N.P. LAB URINE ORDERAB LES Performing Organization Address City/[facility]/ZIP Code Phon e Number [facility]IES - [address] [address] [employer] [facility] Sodium, Random, Urine (10/31/2014 10:04 AM CDT) [facility] [employer] Method Time Signature Sodium, [address] [facility] Random, U with other; LABORATORIES - clinical [facility] data. MMOL/L CAMPUS Specimen Anatomical Collection Method Collection Time Receive d Time (Source) Location / / Volume Laterality 10/31/2014 10:04 10/31/2014 AM CDT 10:04 AM CDT Praveen Liz APRN, Fracisco.N.P., D.N.P. LAB URINE ORDERAB LES Performing Organization Address City/[facility]/ZIP Code Phon e Number [facility]IES - [address] [address] [employer] [facility] [facility] Creatinine, Random, Urine (10/31/2014 10:04 AM CDT) [place] Method Time Signature Creatinine, 26 Used to [facility] Random, U normalize LABORATORIES - other; [facility] values. MG/DL CAMPUS Specimen Anatomical Collection Method Collection Time Receive d Time (Source) Location / / Volume Laterality 10/31/2014 10:04 10/31/2014 AM CDT 10:04 AM CDT Praveen Liz APRN, Fracisco.N.P., D.N.P. LAB URINE ORDERAB LES Performing Organization Address City/[facility]/ZIP Code Phon e Number [facility]IES - [address] [address] [employer] [facility] Potassium, Random, Urine (10/31/2014 10:04 AM CDT) Patholo gist Method Time Signature Potassium, [address] [facility] Random, U with other; LABORATORIES - clinical [facility]. MMOL/L [place] Specimen Anatomical Collection Method Collection Time Receive d Time (Source) Location / / Volume Laterality 10/31/2014 10:04 10/31/2014 AM CDT 10:04 AM CDT Fracisco Villanueva APRN.N.P., D.N.P. LAB URINE ORDERAB LES Performing Organization Address City/[facility]/ZIP Code Phon e Number [facility]IES - [address] [address] [employer] [facility] Tacrolimus Level (10/31/2014 7:37 AM CDT) Analysis Performed At Patho logist Time Signature Tacrolimus Time . [facility] of Last Dose LABORATORIES - [facility] [employer] [facility] Comment: Not Specified Tacrolimus Blood Dose, mg . MG [facility] LABORATORIES - [employer] [facility] Comment: Not Specified Tacrolimus, B 10.1 5.0-15.0 (Trough) [facility] LABORATORIES - NG/ML [facility] Tacrolimus Blood Date of . [facility] LABORATORIES - Last Dose [facility] Comment: Not Specified Specimen Anatomical Collection Method Collection Time Receive d Time (Source) Location / / Volume Laterality 10/31/2014 7:37 AM 5 7:37 CDT AM CDT Felicity Mcmanus LAB BLOOD NON ADD-ON Performing Organization Address City/[facility]/ZIP Code Phon e Number [facility] LABORATORIES - [address] [address] [employer] [facility] Magnesium (10/31/2014 3:47 AM CDT) P athologist Signature Magnesium, S 1.8 1.7 - 2.3 [facility] MG/DL LABORATORIES - [employer] [facility] Specimen Anatomical Collection Method Collection Time Receive d Time (Source) Location / / Volume Laterality 10/31/2014 3:47 AM 5 3:47 CDT AM CDT Fracisco Villanueva APRN.N.P., D.N.P. LAB BLOOD ADD-ON Performing Organization Address City/State/ZIP Code Phon e Number [facility] LABORATORIES - [address] [place], [place] [address] [employer] [facility] (ABNORMAL) BMP (Basic Metabolic Panel) (10/31/2014 3:47 AM CDT) Patholo gist Method Time Signature Sodium, P 142 135 - 145 [facility] MMOL/L LABORATORIES - [employer] [facility] Potassium, P 3.7 3.6 - 5.2 [facility] MMOL/L LABORATORIES - [employer] [facility] BUN (Blood Urea 47 (H) 6 - 21 [facility] Nitrogen), S MG/DL LABORATORIES - [employer] [facility] HX Bicarbonate, 22 22 - 29 [facility] P/S MMOL/L LABORATORIES - [employer] [facility] Chloride, S 105 98 - 107 [facility] MMOL/L LABORATORIES - [facility] [employer] [facility] Creatinine 3.1 (H) 0.6 - 1.1 [facility] MG/DL LABORATORIES - [facility] [employer] [facility] eGFR 16 (L) >60 [facility] Non-Black/Afric ML/MIN/BS LABORATORIES - [place] A [employer] [facility] eGFR-Black/Afri 19 (L) >60 [facility] can [place] ML/MIN/BS LABORATORIES - A [employer] [facility] Glucose, S 98 70 - 140 [facility] MG/DL LABORATORIES - [employer] [facility] Anion Gap 15 7 - 15 [facility] LABORATORIES - [employer] [facility] Specimen Anatomical Collection Method Collection Time Receive d Time (Source) Location / / Volume Laterality 10/31/2014 3:47 AM 5 3:47 CDT AM CDT Praveen Liz APRN, C.N.P., D.N.P. LAB BLOOD ADD-ON Performing Organization Address City/[facility]/ZIP Code Phon e Number [facility] LABORATORIES - [address] [place] [id number] [phone] [facility] Phosphorus Inorganic (10/31/2014 3:47 AM CDT) Analysis Performed At Patho logist Time Signature Phosphorus 3.5 2.5 - 4.5 [facility] (Inorganic), S [facility] - [facility] Specimen Anatomical Collection Method Collection Time Receive d Time (Source) Location / / Volume Laterality 10/31/2014 3:47 AM 5 3:47 CDT AM CDT Praveen Liz APRN, C.N.P., D.N.P. LAB BLOOD ADD-ON Performing Organization Address City/State/ZIP Code Phon e Number [facility] - [address] [place], [place] [phone] [facility] documented in this encounter Visit Diagnoses Not on filedocumented in this encounter
--- OUTSIDE RECORDS SUMMARY | 2022-05-25 13:32 | XMS_ITS | Encounter Summary ---
:1960 Author Organization [facility] Address [address] [place] [address] Care Team Providers Name Role Phone Unavailable Primary Care Provider Unavailable Encounter Details Date Type Department Care Team Description 09/01/2016 Hospital Encounter HX NO MAPPING Social History [...] How often do you attend catholic or mu-ism 1 to 4 times per [...] An Nicholas APRN, C.N.P., Michelle.NDaviP., M.S.N. [address] [place] [address] [phone] (Wo rk) 07/31/2022 Lab Laboratory Medicine Tony Rubalcava M. B., ChBurke, MDebra [address] [place] [address] [phone] (Wo rk) 07/31/2022 Lab Laboratory Medicine Tony Rubalcava M. B., ChBurke, Mukund [address] [place] [address] [phone] (Wo rk) 07/31/2022 Office Visit Transplant Tony Rubalcava M.B., Sydnie, MDebra [address] [place] [address] [phone] (Wo rk) 07/31/2022 Appointment Radiology Tony Rubalcava M.B., ChBurke, MDebra [address] [place] [address] [phone] (Wo rk) 08/01/2022 Office Visit Transplant Tony Rubalcava M.B., Sydnie, MDebra [address] [place] [address] [phone] (Wo rk) 08/01/2022 Clinical Support Transplant Tony Rubalcava M.B., ChBurke, MDebra [address] [place] [address] [phone] (Wo rk) documented as of this encounter Visit Diagnoses Not on filedocumented in this encounter
--- OUTSIDE RECORDS SUMMARY | 2022-05-25 13:32 | XMS_ITS | Encounter Summary ---
:1960 Author Organization [facility] Address [address] [place] [address] Care Team Providers Name Role Phone Unavailable Primary Care Provider Unavailable Encounter Details Date Type Department Care Team Description 12/07/2014 Hospital Encounter HX NO MAPPING Social History [...] How often do you attend yazdanism or mandaeism 1 to 4 times per [...] An Nicholas APRN, C.N.P., Michelle.NDaviP., M.S.N. [address] [place] [address] [phone] (Wo rk) 07/31/2022 Lab Laboratory Medicine Tony Rubalcava M. B., Ch[place]ke, MDebra [address] [place] [address] [phone] (Wo rk) 07/31/2022 Lab Laboratory Medicine Tony Rubalcava M. B., ChBurke, Mukund [address] [place] [address] [phone] (Wo rk) 07/31/2022 Office Visit Transplant Tony Rubalcava M.B., Sydnie, MDebra [address] [place] [address] [phone] (Wo rk) 07/31/2022 Appointment Radiology Tony Rubalcava M.B., Ch[place]ke, MDebra [address] [place] [address] [phone] (Wo rk) 08/01/2022 Office Visit Transplant Tony Rubalcava M.B., Sydnie, MDebra [address] [place] [address] [phone] (Wo rk) 08/01/2022 Clinical Support Transplant Tony Rubalcava M.B., Ch[place]ke, MDebra [address] [place] [address] [phone] (Wo rk) documented as of this encounter Visit Diagnoses Not on filedocumented in this encounter
--- OUTSIDE RECORDS SUMMARY | 2022-05-25 13:33 | XMS_ITS | Encounter Summary ---
:1960 Author Organization [facility] Address [address] [place] [address] Care Team Providers Name Role Phone Elsewhere, Pcp Primary Care Provider Unavailable Encounter Details Date Type Department Care Team Description 04/19/2012 Abstract Ata Dick [place] for Transpla nt, Transplantation and Clinical Coordinator, [place] [facility] in [place], [place] [address] [place] [phone] Social History Tobacco Use Types Packs/Day [...] How often do you attend episcopal or amish 1 to 4 times per [...] Nicholas APRN C.N.P., D.N.P., M.S.N. [address] [place] [phone] (Nicolas wen) 07/31/2022 Lab Laboratory Medicine Tony Rubalcava M. B., Ch[place]ke, MDebra [address] [place] [phone] (Nicolas wen) 07/31/2022 Lab Laboratory Medicine Tony Rubalcava M. B., Ch[place], MDerba [address] [place] [phone] (Nicolas wen) 07/31/2022 Office Visit Transplant Tony Rubalcava M.B., [place], MDebra [address] [place] [phone] (Nicolas wen) 07/31/2022 Appointment Radiology Tony Rubalcava M.B., ChDaviBDavi, MElvia. [address] [place] [phone] (Nicolas wen) 08/01/2022 Office Visit Transplant Tony Rubalcava M.B., ChBurke, MDaviD. [address] [place] [phone] (Nicolas wen) 08/01/2022 Clinical Support Transplant Tony Rubalcava M.B., Mukund [place] [address] [place] [address] [phone] (Wo rk) documented as of this encounter Visit Diagnoses Not on filedocumented in this encounter Additional Health Concerns Infection Onset Date Last Indicated Resolved Time COVID19 Pending 01/20/2020 01/20/2020 01/21/2020 6:52 AM CDT documented as of this encounter Care Teams Shop Coordinator Relationship Specialty Start Date End Date Elsewhere, Pcp PCP - General 09/17/19 documented as of this encounter
--- OUTSIDE RECORDS SUMMARY | 2022-05-25 13:33 | XMS_ITS | Encounter Summary ---
:[address] [facility] Address [address] [place] [address] Care Team Providers Name Role Phone Unavailable Primary Care Provider Unavailable Encounter Details Date Type Department Care Team Description 06/02/2014 Hospital Encounter HX NO MAPPING Юлия Acevedo R.N ., C.M.S.R.N. 200 [place], [place] [phone] Social History Tobacco Use Types Packs/Day Years [...] How often do you attend mormon or restorationist 1 to 4 times per [...] Nicholas APRN C.N.PDavi, D.N.P., M.S.N. [address] [place] [phone] (Nicolas wen) 07/31/2022 Lab Laboratory Medicine Tony Rubalcava M. B., Ch[place]ke, MDebra [address] [place] [phone] (Nicolas wen) 07/31/2022 Lab Laboratory Medicine Tony Rubalcava M. B., Ch[place], MDebra [address] [place] [phone] (Nicolas wen) 07/31/2022 Office Visit Transplant Tony Rubalcava M.B., Ch[place], MDebra [address] [place] [address] [phone] (Nicolas wen) 07/31/2022 Appointment Radiology Tony Rubalcava M.B., Ch[place], MDebra [address] [place] [address] [phone] (Nicolas wen) 08/01/2022 Office Visit Transplant Tony Rubalcava M.B., Ch[place], MDebra [address] [place] [address] [phone] (Nicolas wen) 08/01/2022 Clinical Support Transplant Tony Rubalcava M.B., Mukund [place] [address] [place] [address] [phone] (Wo rk) documented as of this encounter Visit Diagnoses Not on filedocumented in this encounter
--- OUTSIDE RECORDS SUMMARY | 2022-05-25 13:33 | XMS_ITS | Encounter Summary ---
:1960 Author Organization [facility] Address [address] [place] [address] Care Team Providers Name Role Phone Unavailable Primary Care Provider Unavailable Encounter Details Date Type Department Care Team Description 06/02/2014 - Hospital Encounter HX RST ANASTACIA Shaferover, 06/08/2014 Richelle Bruno M.D. [address] [place] [address] (Wo rk) Social History Tobacco Use Types [...] How often do you attend evangelical or jew 1 to 4 times per [...] Sign Reading Time Taken Comments Blood Pressure 129/73 06/08/2014 12:30 PM CDT Pulse 63 06/08/2014 12:30 PM CDT Temperature - - Respiratory Rate 16 06/08/2014 12:30 PM CDT Oxygen Saturation - - Inhaled Oxygen - - Concentration Weight 105 kg (231 lb 7.7 06/06/2014 5:56 AM oz) CDT Height 172 cm (5' 7.72) 06/02/2014 8:04 PM Value from [employer]. CDT Body Mass Index 35.49 06/02/2014 8:04 PM CDT documented in this encounter Plan of Treatment Upcoming Encounters Date Type Specialty Care Team Description 06/01/2022 Telemedicine Pharmacy An Nicholas APRN C.N.P., D.N.P., M.S.N. [address] [place] [address] [phone] (Wo rk) 07/31/2022 Lab Laboratory Medicine Tony Rubalcava M. B., Ch.B., M.Michelle. [address] [place] [address] [phone] (Wo rk) 07/31/2022 Lab Laboratory Medicine Tony Rubalcava M. B., Ch.B., MElvia. [address] [place] [address] [phone] (Wo rk) 07/31/2022 Office Visit Transplant Tony Rubalcava M.B., ChDaviB., MElvia. [address] [place] [address] [phone] (Wo rk) 07/31/2022 Appointment Radiology Tony uRbalcava M.B., Mukund Otoole [address] [place], [place] [phone] ( rk) 08/01/2022 Office Visit Transplant Tony Rubalcava M.B., Mukund Otoole [address] [place] [address] [phone] ( rk) 08/01/2022 Clinical Support Transplant Tony Rubalcava M.B., Mukund Otoole [address] [place] [address] [phone] ([facility]) documented as of this encounter Procedures Procedure Name Priority Date/Time Associated Comments Diagnosis BK VIRUS PCR, QUANT, P Routine 06/10/2014 12:53 R esults for this PM CDT procedure are i n the results section. MICROSCOPIC MANUAL Routine 06/09/2014 8:51 Result s for this AM CDT procedure are i n the results section. ALBUMIN, RANDOM, U Routine 06/09/2014 8:51 Result s for this AM CDT procedure are i n the results section. URINALYSIS WITH Routine 06/09/2014 8:51 Results f or this MICROSCOPIC AM CDT procedure are i n the results section. SIROLIMUS LEVEL, B Routine 06/09/2014 8:08 Result s for this AM CDT procedure are i n the results section. CBC WITHOUT Routine 06/09/2014 8:08 Results for this DIFFERENTIAL, B AM CDT procedure ar e in the results section. BUN (BLOOD UREA Routine 06/09/2014 8:08 Results f or this NITROGEN), S/P AM CDT procedure are in the results section. SODIUM, S/P Routine 06/09/2014 8:08 Results for this AM CDT procedure are i n the results section. POTASSIUM, S/P Routine 06/09/2014 8:08 Results fo r this AM CDT procedure are i n the results section. PHOSPHORUS (INORGANIC), Routine 06/09/2014 8:08 R esults for this S AM CDT procedure are i n the results section. HEMOGLOBIN A1C, B Routine 06/09/2014 8:08 Results for this AM CDT procedure are i n the results section. GLUCOSE, FASTING, S/P Routine 06/09/2014 8:08 Res ults for this AM CDT procedure are i n the results section. CREATININE WITH EGFR, Routine 06/09/2014 8:08 Res ults for this S/P AM CDT procedure are i n the results section. CHLORIDE, S/P Routine 06/09/2014 8:08 Results for this AM CDT procedure are i n the results section. BICARBONATE, B/S/P Routine 06/09/2014 8:08 Result s for this AM CDT procedure are i n the results section. CALCIUM, TOT, S/P Routine 06/09/2014 8:08 Results for this AM CDT procedure are i n the results section. ALBUMIN, S/P Routine 06/09/2014 8:08 Results for this AM CDT procedure are i n the results section. ELECTROLYTE (CHEM 4) Routine 06/08/2014 5:14 Resu lts for this PANEL, S/P AM CDT procedure are i n the results section. CBC WITHOUT Routine 06/08/2014 5:14 Results for this DIFFERENTIAL, B AM CDT procedure ar e in the results section. PHOSPHORUS (INORGANIC), Routine 06/08/2014 5:14 R esults for this S AM CDT procedure are i n the results section. CALCIUM, TOT, S/P Routine 06/08/2014 5:14 Results for this AM CDT procedure are i n the results section. GLUCOSE POCT, B Routine 06/07/2014 6:06 Results f or this AM CDT procedure are i n the results section. ELECTROLYTE (CHEM 4) Routine 06/07/2014 5:10 Resu lts for this PANEL, S/P AM CDT procedure are i n the results section. MYCOPHENOLIC ACID, S Routine 06/07/2014 5:10 Resu lts for this AM CDT procedure are i n the results section. SIROLIMUS LEVEL, B Routine 06/07/2014 5:10 Result s for this AM CDT procedure are i n the results section. CBC WITHOUT Routine 06/07/2014 5:10 Results for this DIFFERENTIAL, B AM CDT procedure ar e in the results section. PHOSPHORUS (INORGANIC), Routine 06/07/2014 5:10 R esults for this S AM CDT procedure are i n the results section. MAGNESIUM, S Routine 06/07/2014 5:10 Results for this AM CDT procedure are i n the results section. CALCIUM, TOT, S/P Routine 06/07/2014 5:10 Results for this AM CDT procedure are i n the results section. GLUCOSE POCT, B Routine 06/07/2014 2:02 Results f or this AM CDT procedure are i n the results section. GLUCOSE POCT, B Routine 06/06/2014 11:33 Results for this PM CDT procedure are i n the results section. GLUCOSE POCT, B Routine 06/06/2014 6:20 Results f or this PM CDT procedure are i n the results section. GLUCOSE POCT, B Routine 06/06/2014 2:19 Results f or this PM CDT procedure are i n the results section. GLUCOSE POCT, B Routine 06/06/2014 5:54 Results f or this AM CDT procedure are i n the results section. ELECTROLYTE (CHEM 4) Routine 06/06/2014 5:52 Resu lts for this PANEL, S/P AM CDT procedure are i n the results section. CBC WITHOUT Routine 06/06/2014 5:52 Results for this DIFFERENTIAL, B AM CDT procedure ar e in the results section. MAGNESIUM, S Routine 06/06/2014 5:52 Results for this AM CDT procedure are i n the results section. GLUCOSE POCT, B Routine 06/06/2014 12:54 Results for this AM CDT procedure are i n the results section. GLUCOSE POCT, B Routine 06/05/2014 7:00 Results f or this PM CDT procedure are i n the results section. GLUCOSE POCT, B Routine 06/05/2014 1:56 Results f or this PM CDT procedure are i n the results section. V&IRAD VASCULAR & Routine 06/05/2014 12:47 Result s for this INTERVENTION PM CDT procedure are i n the results section. GLUCOSE POCT, B Routine 06/05/2014 5:59 Results f or this AM CDT procedure are i n the results section. ELECTROLYTE (CHEM 4) Routine 06/05/2014 5:49 Resu lts for this PANEL, S/P AM CDT procedure are i n the results section. CBC WITHOUT Routine 06/05/2014 5:49 Results for this DIFFERENTIAL, B AM CDT procedure ar e in the results section. PHOSPHORUS (INORGANIC), Routine 06/05/2014 5:49 R esults for this S AM CDT procedure are i n the results section. MAGNESIUM, S Routine 06/05/2014 5:49 Results for this AM CDT procedure are i n the results section. CALCIUM, TOT, S/P Routine 06/05/2014 5:49 Results for this AM CDT procedure are i n the results section. GLUCOSE POCT, B Routine 06/04/2014 10:06 Results for this PM CDT procedure are i n the results section. GLUCOSE POCT, B Routine 06/04/2014 6:17 Results f or this PM CDT procedure are i n the results section. GLUCOSE POCT, B Routine 06/04/2014 6:33 Results f or this AM CDT procedure are i n the results section. ELECTROLYTE (CHEM 4) Routine 06/04/2014 5:14 Resu lts for this PANEL, S/P AM CDT procedure are i n the results section. CBC WITHOUT Routine 06/04/2014 5:14 Results for this DIFFERENTIAL, B AM CDT procedure ar e in the results section. PHOSPHORUS (INORGANIC), Routine 06/04/2014 5:14 R esults for this S AM CDT procedure are i n the results section. MAGNESIUM, S Routine 06/04/2014 5:14 Results for this AM CDT procedure are i n the results section. CALCIUM, TOT, S/P Routine 06/04/2014 5:14 Results for this AM CDT procedure are i n the results section. GLUCOSE POCT, B Routine 06/03/2014 11:10 Results for this PM CDT procedure are i n the results section. ELECTROLYTE (CHEM 4) Routine 06/03/2014 11:07 Res ults for this PANEL, S/P PM CDT procedure are i n the results section. GLUCOSE POCT, B Routine 06/03/2014 6:57 Results f or this PM CDT procedure are i n the results section. ELECTROLYTE (CHEM 4) Routine 06/03/2014 3:41 Resu lts for this PANEL, S/P PM CDT procedure are i n the results section. BASIC METABOLIC PANEL, Routine 06/03/2014 12:33 R esults for this S/P PM CDT procedure are i n the results section. GLUCOSE POCT, B Routine 06/03/2014 11:25 Results for this AM CDT procedure are i n the results section. US KIDNEY TRANSPLANT Routine 06/03/2014 8:54 Resu lts for this DOPPLER AM CDT procedure are i n the results section. ELECTROLYTE (CHEM 4) Routine 06/03/2014 8:42 Resu lts for this PANEL, S/P AM CDT procedure are i n the results section. MYCOPHENOLIC ACID, S Routine 06/03/2014 8:42 Resu lts for this AM CDT procedure are i n the results section. SIROLIMUS LEVEL, B Routine 06/03/2014 8:42 Result s for this AM CDT procedure are i n the results section. GLUCOSE POCT, B Routine 06/03/2014 8:39 Results f or this AM CDT procedure are i n the results section. GLUCOSE POCT, B Routine 06/03/2014 6:51 Results f or this AM CDT procedure are i n the results section. GLUCOSE POCT, B Routine 06/03/2014 5:31 Results f or this AM CDT procedure are i n the results section. GLUCOSE POCT, B Routine 06/03/2014 5:00 Results f or this AM CDT procedure are i n the results section. ELECTROLYTE (CHEM 4) Routine 06/03/2014 4:29 Resu lts for this PANEL, S/P AM CDT procedure are i n the results section. CBC WITH DIFFERENTIAL, B Routine 06/03/2014 4:29 Results for this AM CDT procedure are i n the results section. PHOSPHORUS (INORGANIC), Routine 06/03/2014 4:29 R esults for this S AM CDT procedure are i n the results section. MAGNESIUM, S Routine 06/03/2014 4:29 Results for this AM CDT procedure are i n the results section. CALCIUM, TOT, S/P Routine 06/03/2014 4:29 Results for this AM CDT procedure are i n the results section. GLUCOSE POCT, B Routine 06/03/2014 4:17 Results f or this AM CDT procedure are i n the results section. GLUCOSE POCT, B Routine 06/03/2014 3:35 Results f or this AM CDT procedure are i n the results section. GLUCOSE POCT, B Routine 06/03/2014 3:01 Results f or this AM CDT procedure are i n the results section. GLUCOSE POCT, B Routine 06/03/2014 2:30 Results f or this AM CDT procedure are i n the results section. GLUCOSE POCT, B Routine 06/03/2014 2:15 Results f or this AM CDT procedure are i n the results section. GLUCOSE POCT, B Routine 06/03/2014 2:00 Results f or this AM CDT procedure are i n the results section. GLUCOSE POCT, B Routine 06/03/2014 1:33 Results f or this AM CDT procedure are i n the results section. BASIC METABOLIC PANEL, Routine 06/02/2014 11:51 R esults for this S/P PM CDT procedure are i n the results section. V&IRAD ULTRASOUND Routine 06/02/2014 10:09 Result s for this GUIDANCE PM CDT procedure are i n the results section. V&IRAD VASCULAR & Routine 06/02/2014 10:09 Result s for this INTERVENTION PM CDT procedure are i n the results section. HX MICROBIOLOGY REPORTS Routine 06/02/2014 9:44 R esults for this PM CDT procedure are i n the results section. ABG AND ELECTROLYTES, B Routine 06/02/2014 8:31 R esults for this ([place] - [place]) PM CDT procedure are in the results section. SODIUM, RANDOM, U Routine 06/02/2014 7:59 Results for this PM CDT procedure are i n the results section. MICROSCOPIC MANUAL Routine 06/02/2014 7:59 Result s for this PM CDT procedure are i n the results section. EOSINOPHILS, U Routine 06/02/2014 7:59 Results fo r this PM CDT procedure are i n the results section. GRAM'S ST, U Routine 06/02/2014 7:59 Results for this PM CDT procedure are i n the results section. CREATININE, RANDOM, U Routine 06/02/2014 7:59 Res ults for this PM CDT procedure are i n the results section. URINALYSIS WITH Routine 06/02/2014 7:59 Results f or this MICROSCOPIC PM CDT procedure are i n the results section. HX MICROBIOLOGY REPORTS Routine 06/02/2014 7:32 R esults for this PM CDT procedure are i n the results section. ABG W/COOX Routine 06/02/2014 7:32 Results for this PM CDT procedure are i n the results section. POTASSIUM, S/P Routine 06/02/2014 7:32 Results fo r this PM CDT procedure are i n the results section. ECG Routine 06/02/2014 6:44 Results for this PM CDT procedure are i n the results section. INTERPRETATION OF Routine 06/02/2014 6:14 Results for this OUTSIDE CT ABDOMEN AND PM CDT proce dure are in OR PELVIS the results section. HX MICROBIOLOGY REPORTS Routine 06/02/2014 6:03 R esults for this PM CDT procedure are i n the results section. MYCOPHENOLIC ACID, S Routine 06/02/2014 6:03 Resu lts for this PM CDT procedure are i n the results section. SIROLIMUS LEVEL, B Routine 06/02/2014 6:03 Result s for this PM CDT procedure are i n the results section. ACTIVATED PARTIAL Routine 06/02/2014 6:03 Results for this THROMBOPLASTIN TIME PM CDT procedur e are in (APTT), P the results section. PROTHROMBIN TIME (PT), P Routine 06/02/2014 6:03 Results for this PM CDT procedure are i n the results section. CBC WITHOUT Routine 06/02/2014 6:03 Results for this DIFFERENTIAL, B PM CDT procedure ar e in the results section. ALANINE AMINOTRANSFERASE Routine 06/02/2014 6:03 Results for this (ALT), S/P PM CDT procedure are i n the results section. ASPARTATE Routine 06/02/2014 6:03 Results for this AMINOTRANSFERASE (AST), PM CDT proc edure are in S/P the results section. PHOSPHORUS (INORGANIC), Routine 06/02/2014 6:03 R esults for this S PM CDT procedure are i n the results section. MAGNESIUM, S Routine 06/02/2014 6:03 Results for this PM CDT procedure are i n the results section. LACTATE, B/P Routine 06/02/2014 6:03 Results for this PM CDT procedure are i n the results section. HEMOGLOBIN A1C, B Routine 06/02/2014 6:03 Results for this PM CDT procedure are i n the results section. CREATINE KINASE (CK), S Routine 06/02/2014 6:03 R esults for this PM CDT procedure are i n the results section. CALCIUM, TOT, S/P Routine 06/02/2014 6:03 Results for this PM CDT procedure are i n the results section. BILIRUBIN DIRECT, S/P Routine 06/02/2014 6:03 Res ults for this PM CDT procedure are i n the results section. BILIRUBIN, TOT, S/P Routine 06/02/2014 6:03 Resul ts for this PM CDT procedure are i n the results section. ALBUMIN, S/P Routine 06/02/2014 6:03 Results for this PM CDT procedure are i n the results section. BASIC METABOLIC PANEL, Routine 06/02/2014 6:03 Re sults for this S/P PM CDT procedure are i n the results section. documented in this encounter Results BK Virus PCR, Quant, P (06/10/2014 12:53 PM CDT) [facility] Method Time Signature BK Virus PCR, None None [facility] Quant, P detected LABORATORIES - [facility] Comment: ? ADDITIONAL INFORMATIO N ? Laboratory developed test. ? Specimen Anatomical Collection Method Collection Time Receive d Time (Source) Location / / Volume Laterality 06/10/2014 12:53 06/10/2014 PM CDT 12:53 PM CDT Shanon Summers M.D. LAB MICROBIOLOGY - BLOOD ORD ERABLES Performing Organization Address City/[facility] Code Phon e Number [facility] LABORATORIES - [address] [address] [facility] (ABNORMAL) Microscopic Manual (06/09/2014 8:51 AM CDT) [facility] gist Method Time Signature Microscopy Abnormal [facility] Blood 51-100 (A) <3 /HPF [facility] Squamous 1-3 /HPF [facility] Epithelial [facility] Dysmorphic RBC <25 <25 % [facility] WBC 1-3 1-3 [facility] (Males); LABORATORIES - 1-10 [facility] (Females) CAMPUS /HPF Specimen Anatomical Collection Method Collection Time Receive d Time (Source) Location / / Volume Laterality 06/09/2014 8:51 AM 4 8:51 CDT AM CDT Steve Martínez Jr., D.O. LAB URINE ORDERABLES Performing Organization Address [facility] Phon e Number [facility] LABORATORIES - [address] [address] [facility] (ABNORMAL) Microalbumin, Random, Urine (06/09/2014 8:51 AM CDT) [facility] gist Method Time Signature Albumin/Creatini 372 (H) <25 MG/G [facility] ne [facility] Microalbumin 271.7 MG/L [facility] Creatinine 73 MG/DL [facility] Specimen Anatomical Collection Method Collection Time Receive d Time (Source) Location / / Volume Laterality 06/09/2014 8:51 AM 4 8:51 CDT AM CDT Whitney Rasheed Jr.ODavi LAB URINE ORDERABLES Performing Organization Address City/State/ZIP Code Phon e Number [facility] LABORATORIES - [address] [place], [place] [address] [facility] (ABNORMAL) Urinalysis with Microscopic (06/09/2014 8:51 AM CDT) athologist Signature Glucose 6 0 - 15 [facility] MG/DL [facility] Protein, U 73 (H) <22 MG/DL [facility] Comment: ? ADDITIONAL INFORMATIO N ? On 03/02/2014 the total protein assay me thod changed resulting ? in approximately a 20% increase in prote in values. ? Protein/Osmolality 1.88 (H) <0.27 [facility] Comment: ? ADDITIONAL INFORMATIO N ? On 03/02/2014 the total protein assay me thod changed resulting ? in approximately a 20% increase in prote in values. ? Predicted 24 Hr Protein 1188 MG/[address] [facility] S Source Void [facility] Appearance Normal Normal [facility] Osmolality, 24 HR, U 388 150 - 1150 MOSM/KG [facility] S pH, 24 HR, U 6.3 4.5 - 8.0 [facility] LABOR ATORIES - [facility] S Predicted Range 293-4808 MG/24 H [facility] [place] BORATORIES [facility] S Hemoglobin, QL Large (A) Negative [facility] Specimen Anatomical Collection Method Collection Time Receive d Time (Source) Location / / Volume Laterality 06/09/2014 8:51 AM 4 8:51 CDT AM CDT Whitney Rasheed Jr.ODavi LAB URINE ORDERABLES Performing Organization Address City/[facility]/ZIP Code Phon e Number [facility] - [address] [address] [facility] Chloride (06/09/2014 8:08 AM CDT) athologist Signature Chloride, S 106 98 - 107 [facility] MMOL/L [facility] Specimen Anatomical Collection Method Collection Time Receive d Time (Source) Location / / Volume Laterality 06/09/2014 8:08 AM 4 8:08 CDT AM CDT Steve Martínez Jr., D.O. LAB BLOOD ADD-ON Performing Organization Address City/[facility]/ZIP Code Phon e Number [facility] - [address] [address] [facility] Calcium, Total (06/09/2014 8:08 AM CDT) athologist Signature Calcium, 10.0 8.9 - 10.1 [facility] Total, S MG/DL [facility] Specimen Anatomical Collection Method Collection Time Receive d Time (Source) Location / / Volume Laterality 06/09/2014 8:08 AM 4 8:08 CDT AM CDT Steve Martínez Jr., D.O. LAB BLOOD ADD-ON Performing Organization Address City/[facility]/ZIP Code Phon e Number [facility] - [address] [address] [facility] Potassium (06/09/2014 8:08 AM CDT) athologist Signature Potassium, S 4.3 3.6 - 5.2 [facility] MMOL/L [facility] Specimen Anatomical Collection Method Collection Time Receive d Time (Source) Location / / Volume Laterality 06/09/2014 8:08 AM 4 8:08 CDT AM CDT Steve Martínez Jr., D.O. LAB BLOOD ADD-ON Performing Organization Address City/State/ZIP Code Phon e Number [facility] LABORATORIES - [address] [address] [facility] (ABNORMAL) Bicarbonate (06/09/2014 8:08 AM CDT) Analysis Performed At Patho logist Time Signature HX 19 (L) 22 - 29 [facility] Bicarbonate, MMOL/L LABORATORIES - P/S [facility] Specimen Anatomical Collection Method Collection Time Receive d Time (Source) Location / / Volume Laterality 06/09/2014 8:08 AM 4 8:08 CDT AM CDT Steve Martínez Jr., D.O. LAB BLOOD ADD-ON Performing Organization Address City/[facility]/ZIP Code Phon e Number [facility] LABORATORIES - [address] [address] [facility] (ABNORMAL) Creatinine with Estimated GFR (MDRD) (06/09/2014 8:08 AM CDT) Patholo gist Method Time Signature eGFR-Black/Afri 33 (L) >60 [facility] can Slovenian ML/MIN/BS LABORATORIES - A [facility] Creatinine 1.9 (H) 0.6 - 1.1 [facility] MG/DL LAB[facility]ATORIES - [facility] eGFR 28 (L) >60 [facility] Non-Black/Afric ML/MIN/BS LABORATORIES - an [place]ian A [facility] Specimen Anatomical Collection Method Collection Time Receive d Time (Source) Location / / Volume Laterality 06/09/2014 8:08 AM 4 8:08 CDT AM CDT Steve Martínez Jr., D.O. LAB BLOOD ADD-ON Performing Organization Address City/[facility]/ZIP Code Phon e Number [facility] LABORATORIES - [address] [address] [facility] Phosphorus Inorganic (06/09/2014 8:08 AM CDT) Analysis Performed At Patho logist Time Signature Phosphorus 3.5 2.5 - 4.5 [facility] (Inorganic), S MG/DL [facility] Specimen Anatomical Collection Method Collection Time Receive d Time (Source) Location / / Volume Laterality 06/09/2014 8:08 AM 4 8:08 CDT AM CDT Steve Martínez Jr., D.O. LAB BLOOD ADD-ON Performing Organization Address City/State/ZIP Code Phon e Number [facility] LABORATORIES - [address] [address] [facility] Albumin (06/09/2014 8:08 AM CDT) P athologist Signature Albumin, S 4.2 3.5 - 5.0 [facility] G/DL LABORATORIES [facility] Specimen Anatomical Collection Method Collection Time Receive d Time (Source) Location / / Volume Laterality 06/09/2014 8:08 AM 4 8:08 CDT AM CDT Steve Martínez Jr., D.O. LAB BLOOD ADD-ON Performing Organization Address City/[facility]/ZIP Code Phon e Number [facility] LABORATORIES - [address] [address] [facility] Sodium (06/09/2014 8:08 AM CDT) P athologist Signature Sodium, S 139 135 - 145 [facility] MMOL/L [facility] Specimen Anatomical Collection Method Collection Time Receive d Time (Source) Location / / Volume Laterality 06/09/2014 8:08 AM 4 8:08 CDT AM CDT Steve Martínez Jr., D.O. LAB BLOOD ADD-ON Performing Organization Address City/[facility]/ZIP Code Phon e Number [facility] LABORATORIES - [address] [address] [facility] Hemoglobin A1c (06/09/2014 8:08 AM CDT) Analysis Performed At Patho logist Time Signature Hemoglobin A1c, 5.6 4.0 - 6.0 [facility] B % [facility] Specimen Anatomical Collection Method Collection Time Receive d Time (Source) Location / / Volume Laterality 06/09/2014 8:08 AM 4 8:08 CDT AM CDT Whitney Rasheed Jr.ODavi LAB BLOOD ADD-ON Performing Organization Address City/State/ZIP Code Phon e Number [facility] LABORATORIES - [address] [place], [place] [address] [facility] (ABNORMAL) BUN (Blood Urea Nitrogen) (06/09/2014 8:08 AM CDT) Analysis Performed At Patho logist Time Signature BUN (Blood 22 (H) 6 - 21 [facility] Urea MG/DL LABORATORIES - Nitrogen), S [facility] Specimen Anatomical Collection Method Collection Time Receive d Time (Source) Location / / Volume Laterality 06/09/2014 8:08 AM 4 8:08 CDT AM CDT Steve Martínez Jr., D.O. LAB BLOOD ADD-ON Performing Organization Address City/State/ZIP Code Phon e Number [facility] - [address] [place], [place] [address] [facility] (ABNORMAL) Glucose, Fasting (06/09/2014 8:08 AM CDT) P athologist Signature Last Intake 20 HR [facility]ORATORIES - [facility] Glucose, P 123 (H) 70 - 100 [facility] MG/DL LABORATORIES - [facility] Specimen Anatomical Collection Method Collection Time Receive d Time (Source) Location / / Volume Laterality 06/09/2014 8:08 AM 4 8:08 CDT AM CDT Whitney Rasheed Jr.ODavi LAB BLOOD NON ADD-ON Performing Organization Address City/State/ZIP Code Phon e Number [facility] - [address] [place], [place] [address] [facility] Sirolimus Level (06/09/2014 8:08 AM CDT) P athologist Signature Sirolimus, B 17.6 4.0 - 20.0 [facility] (Trough) LABORATORIES - NG/ML [facility] Sirolimus Date . [facility] of Last Dose LABORATORIES - [facility] Comment: Not Specified Sirolimus Time of Dose . [facility] LABORATORIES - [facility] Comment: Not Specified Dose, mg . MG [facility]ORAT[facility] - [facility] Comment: Not Specified Specimen Anatomical Collection Method Collection Time Receive d Time (Source) Location / / Volume Laterality 06/09/2014 8:08 AM 4 8:08 CDT AM CDT Whitney Rasheed Jr.ODavi LAB BLOOD NON ADD-ON Performing Organization Address City/State/ZIP Code Phon e Number [facility]IES - [address] [place] [address] [facility] (ABNORMAL) CBC without Differential (06/09/2014 8:08 AM CDT) [facility] Method Time Signature Hemoglobin 12.1 12.0 - [facility] 15.5 G/DL LABORATORIES - [facility] Hematocrit 37.5 34.9 - [facility] 44.5 % LABORATORIES - [facility] Leukocytes 7.3 3.5 - [facility] 10.5 LABORATORIES - X10(9)/L [facility] Erythrocytes 4.51 3.90 - [facility] 5.03 LABORATORIES - X10(12)/L [facility] MCV 83.1 81.6 - [facility] 98.3 FL LABORATORIES - [facility] RBC Distrib 15.7 (H) 11.9 - [facility] Width 15.5 % LABORATORIES - [facility] Platelet Count 199 150 - 450 [facility] X10(9)/L LABORATORIES - [facility] Specimen Anatomical Collection Method Collection Time Receive d Time (Source) Location / / Volume Laterality 06/09/2014 8:08 AM 4 8:08 CDT AM CDT Steve Martínez Jr., D.O. LAB BLOOD ADD-ON Performing Organization Address City/[facility] Code Phon e Number [facility]IES - [address] [place] [address] [facility] (ABNORMAL) Electrolyte (Chem 4) Panel (06/08/2014 5:14 AM CDT) [facility] Method Time Signature Sodium, S 143 135 - 145 [facility] MMOL/L LABORATORIES - [facility] Potassium, S 4.2 3.6 - 5.2 [facility] MMOL/L LABORATORIES - [facility] Creatinine 1.9 (H) 0.6 - 1.1 [facility] MG/DL LABORATORIES - [facility] eGFR 28 (L) >60 [facility] Non-Black/Afric ML/MIN/BS LABORATORIES - an [place]ian A [facility] eGFR-Black/Afri 33 (L) >60 [facility] can [place]ian ML/MIN/BS LABORATORIES - [facility] BUN (Blood Urea 16 6 - 21 [facility] Nitrogen), S MG/DL LABORATORIES - [facility] Chloride, S 112 (H) 98 - 107 [facility] MMOL/L LABORATORIES - [facility] HX Bicarbonate, 18 (L) 22 - 29 [facility] P/S MMOL/L LABORATORIES - [facility] Anion Gap 13 7 - 15 [facility] - [facility] Glucose, S 81 70 - 140 [facility] MG/DL LABORATORIES - [facility] Specimen Anatomical Collection Method Collection Time Receive d Time (Source) Location / / Volume Laterality 06/08/2014 5:14 AM 4 5:14 CDT AM CDT Historical Provider LAB BLOOD ADD-ON Performing Organization Address City/[facility] Phon e Number [facility]IES - [address] [place] [address] [facility] Calcium, Total (06/08/2014 5:14 AM CDT) P athologist Signature Calcium, 9.7 8.9 - 10.1 [facility] Total, S MG/DL LABORATORIES - [facility] Specimen Anatomical Collection Method Collection Time Receive d Time (Source) Location / / Volume Laterality 06/08/2014 5:14 AM 4 5:14 CDT AM CDT Historical Provider LAB BLOOD ADD-ON Performing Organization Address City/[facility] Phon e Number [facility] - [address] [place] [address] [facility] (ABNORMAL) CBC without Differential (06/08/2014 5:14 AM CDT) Patholo gist Method Time Signature Hemoglobin 10.9 (L) 12.0 - [facility] 15.5 G/DL [facility] - [facility] Hematocrit 33.5 (L) 34.9 - [facility] 44.5 % [facility] - [facility] Leukocytes 6.4 3.5 - [facility] 10.5 LABORATORIES - X10(9)/L [facility] Erythrocytes 4.00 3.90 - [facility] 5.03 LABORATORIES - X10(12)/L [facility] MCV 83.8 81.6 - [facility] 98.3 FL [facility] RBC Distrib 15.6 (H) 11.9 - [facility] Width 15.5 % [facility] Platelet Count 185 150 - 450 [facility] X10(9)/L LABORATORIES [facility] Specimen Anatomical Collection Method Collection Time Receive d Time (Source) Location / / Volume Laterality 06/08/2014 5:14 AM 4 5:14 CDT AM CDT Historical Provider LAB BLOOD ADD-ON Performing Organization Address City/[facility]/ZIP Code Phon e Number [facility] - [address] [place], [place] [address] [facility] Phosphorus Inorganic (06/08/2014 5:14 AM CDT) Analysis Performed At Path logist Time Signature Phosphorus 3.0 2.5 - 4.5 [facility] (Inorganic), S MG/DL LABORATORIES - [facility] Specimen Anatomical Collection Method Collection Time Receive d Time (Source) Location / / Volume Laterality 06/08/2014 5:14 AM 4 5:14 CDT AM CDT Historical Provider LAB BLOOD ADD-ON Performing Organization Address City/[facility]/ZIP Code Phon e Number [facility] - [address] [place], [place] [address] [facility] Glucose, POCT (06/07/2014 6:06 AM CDT) [facility] gist Method Time Signature Last Intake > 4 hours [facility]ORATORIES - [facility] Glucose, 88 70 - 140 [facility] POCT, B MG/DL LABORATORIES - [facility] Sample Site, Capillary [facility] Blood Gas, LABORATORIES - POCT [facility] Specimen Anatomical Collection Method Collection Time Receive d Time (Source) Location / / Volume Laterality 06/07/2014 6:06 AM 4 6:06 CDT AM CDT Historical Provider LAB POCT ORDERABLES-MANUAL Performing Organization Address City/[facility]/ZIP Code Phon e Number [facility]IES - [address] [place], [place] [address] [facility] (ABNORMAL) Electrolyte (Chem 4) Panel (06/07/2014 5:10 AM CDT) [facility] gist Method Time Signature Sodium, S 145 135 - 145 [facility] MMOL/L LABORATORIES - [facility] Potassium, S 4.1 3.6 - 5.2 [facility] MMOL/L LABORATORIES - [facility] eGFR 26 (L) >60 [facility] Non-Black/Afric ML/MIN/BS LABORATORIES - an [place] A [facility] eGFR-Black/Afri 31 (L) >60 [facility] can [place] ML/MIN/BS LABORATORIES - A [facility] Chloride, S 114 (H) 98 - 107 [facility] MMOL/L LABORATORIES - [facility] Creatinine 2.0 (H) 0.6 - 1.1 [facility] MG/DL LABORATORIES - [facility] BUN (Blood Urea 15 6 - 21 [facility] Nitrogen), S MG/DL LABORATORIES - [facility] Glucose, S 83 70 - 140 [facility] MG/DL LABORATORIES - [facility] HX Bicarbonate, 14 (L) 22 - 29 [facility] P/S MMOL/L LABORATORIES - [facility] Anion Gap 17 (H) 7 - 15 [facility] - [facility] Specimen Anatomical Collection Method Collection Time Receive d Time (Source) Location / / Volume Laterality 06/07/2014 5:10 AM 4 5:10 CDT AM CDT Bettina Puri M.D. LAB BLOOD ADD-ON Performing Organization Address City/State/ZIP Code Phon e Number [facility]IES - [address] [place] [address] [facility] (ABNORMAL) Mycophenolic Acid (06/07/2014 5:10 AM CDT) Patholo gist Method Time Signature Mycophenolic 3.7 (H) 1.0 - 3.5 [facility] Acid MCG/ML LABORATORIES - [facility] MPA Glucuronide 115 (H) 35 - 100 [facility] MCG/ML LABORATORIES - [facility] Specimen Anatomical Collection Method Collection Time Receive d Time (Source) Location / / Volume Laterality 06/07/2014 5:10 AM 4 5:10 CDT AM CDT Bettina Puri M.D. LAB BLOOD NON ADD-ON Performing Organization Address City/State/ZIP Code Phon e Number [facility]IES - [address] [place] [address] [facility] Calcium, Total (06/07/2014 5:10 AM CDT) P athologist Signature Calcium, 9.4 8.9 - 10.1 [facility] Total, S MG/DL LABORATORIES - [facility] Specimen Anatomical Collection Method Collection Time Receive d Time (Source) Location / / Volume Laterality 06/07/2014 5:10 AM 4 5:10 CDT AM CDT Bettina Puri M.D. LAB BLOOD ADD-ON Performing Organization Address City/State/ZIP Code Phon e Number [facility] - [address] [place] [address] [facility] Sirolimus Level (06/07/2014 5:10 AM CDT) P athologist Signature Sirolimus, B 5.7 4.0 - 20.0 [facility] (Trough) LABORATORIES - NG/ML [facility] Sirolimus Date . [facility] of Last Dose LABORATORIES - [facility] Comment: Not Specified Sirolimus Time of Dose . [facility] LABORATORIES - [facility] Comment: Not Specified Dose, mg . MG [facility] LABORATO [facility] Comment: Not Specified Specimen Anatomical Collection Method Collection Time Receive d Time (Source) Location / / Volume Laterality 06/07/2014 5:10 AM 4 5:10 CDT AM CDT Bettina Puri M.D. LAB BLOOD NON ADD-ON Performing Organization Address City/State/ZIP Code Phon e Number [facility] LABORATORIES - [address] [place] [address] [facility] Phosphorus Inorganic (06/07/2014 5:10 AM CDT) Analysis Performed At Patho logist Time Signature Phosphorus 2.7 2.5 - 4.5 [facility] (Inorganic), S MG/DL LABORATORIES - [facility] Specimen Anatomical Collection Method Collection Time Receive d Time (Source) Location / / Volume Laterality 06/07/2014 5:10 AM 4 5:10 CDT AM CDT Bettina Puri M.D. LAB BLOOD ADD-ON Performing Organization Address City/State/ZIP Code Phon e Number [facility] LAB[facility]ATORIES - [address] [place] [address] [facility] Magnesium (06/07/2014 5:10 AM CDT) P athologist Signature Magnesium, S 1.9 1.7 - 2.3 [facility] MG/DL LABORATORIES - [facility] Specimen Anatomical Collection Method Collection Time Receive d Time (Source) Location / / Volume Laterality 06/07/2014 5:10 AM 4 5:10 CDT AM CDT Bettina Puri M.D. LAB BLOOD ADD-ON Performing Organization Address City/State/ZIP Code Phon e Number [facility]ATORIES - [address] [place] [address] [facility] (ABNORMAL) CBC without Differential (06/07/2014 5:10 AM CDT) Patholo gist Method Time Signature Hemoglobin 10.5 (L) 12.0 - [facility] 15.5 G/DL LABORATORIES - [facility] Hematocrit 32.4 (L) 34.9 - [facility] 44.5 % LABORATORIES - [facility] RBC Distrib 16.0 (H) 11.9 - [facility] Width 15.5 % LABORATORIES - [facility] Platelet Count 181 150 - 450 [facility] X10(9)/L LABORATORIES - [facility] Leukocytes 6.8 3.5 - [facility] 10.5 LABORATORIES - X10(9)/L [facility] Erythrocytes 3.90 3.90 - [facility] 5.03 LABORATORIES - X10(12)/L [facility] MCV 83.1 81.6 - [facility] 98.3 FL LABORATORIES - [facility] Specimen Anatomical Collection Method Collection Time Receive d Time (Source) Location / / Volume Laterality 06/07/2014 5:10 AM 4 5:10 CDT AM CDT Bettina Puri M.D. LAB BLOOD ADD-ON Performing Organization Address City/[facility] Code Phon e Number [facility] LABORATORIES - [address] [place] [address] [facility] Glucose, POCT (06/07/2014 2:02 AM CDT) [facility] Method Time Signature Glucose, 86 70 - 140 [facility] POCT, B MG/DL LABORATORIES - [facility] Sample Site, Capillary [facility] Blood Gas, LABORATORIES - POCT [facility] Last Intake > 4 hours [facility] LABORATORIES - [facility] Specimen Anatomical Collection Method Collection Time Receive d Time (Source) Location / / Volume Laterality 06/07/2014 2:02 AM 4 2:02 CDT AM CDT Historical Provider LAB POCT ORDERABLES-MANUAL Performing Organization Address City/[facility] Phon e Number [facility] LABORATORIES - [address] [place] [address] [facility] Glucose, POCT (06/06/2014 11:33 PM CDT) [facility] Method Time Signature Last Intake > 4 hours [facility] Glucose, 89 70 - 140 [facility] POCT, B MG/DL LABORATORIES - [facility] Sample Site, Capillary [facility] Blood Gas, LABORATORIES - POCT [facility] Specimen Anatomical Collection Method Collection Time Receive d Time (Source) Location / / Volume Laterality 06/06/2014 11:33 06/06/2014 PM CDT 11:33 PM CDT Historical Provider LAB POCT ORDERABLES-MANUAL Performing Organization Address City/[facility]/ZIP Code Phon e Number [facility] LABORATORIES - [address] [place], [place] [address] [facility] Glucose, POCT (06/06/2014 6:20 PM CDT) [facility] gist Method Time Signature Last Intake 3-4 hours [facility] LABORATORIES - [facility] Glucose, 82 70 - 140 [facility] POCT, B MG/DL LABORATORIES - [facility] Sample Site, Capillary [facility] Blood Gas, LABORATORIES - POCT [facility] Specimen Anatomical Collection Method Collection Time Receive d Time (Source) Location / / Volume Laterality 06/06/2014 6:20 PM 4 6:20 CDT PM CDT Historical Provider LAB POCT ORDERABLES-MANUAL Performing Organization Address City/[facility]/ZIP Code Phon e Number [facility] LABORATORIES - [address] [place], [place] [address] [facility] Glucose, POCT (06/06/2014 2:19 PM CDT) [facility] Method Time Signature Last Intake > 4 hours [facility] LABORATORIES - [facility] Glucose, 103 70 - 140 [facility] POCT, B MG/DL LABORATORIES - [facility] Sample Site, Capillary [facility] Blood Gas, LABORATORIES - POCT [facility] Specimen Anatomical Collection Method Collection Time Receive d Time (Source) Location / / Volume Laterality 06/06/2014 2:19 PM 4 2:19 CDT PM CDT Historical Provider LAB POCT ORDERABLES-MANUAL Performing Organization Address City/State/ZIP Code Phon e Number [facility] LABORATORIES - [address] [place], [place] [address] [facility] Glucose, POCT (06/06/2014 5:54 AM CDT) [facility] gist Method Time Signature Glucose, 86 70 - 140 [facility] POCT, B MG/DL LABORATORIES - [facility] Sample Site, Capillary [facility] Blood Gas, LABORATORIES - POCT [facility] Last Intake > 4 hours [facility] - [facility] Specimen Anatomical Collection Method Collection Time Receive d Time (Source) Location / / Volume Laterality 06/06/2014 5:54 AM 4 5:54 CDT AM CDT Historical Provider LAB POCT ORDERABLES-MANUAL Performing Organization Address City/[facility] Code Phon e Number [facility] LABORATORIES - [address] [place] [address] [facility] (ABNORMAL) Magnesium (06/06/2014 5:52 AM CDT) Analysis Performed At Patho logist Time Signature Magnesium, S 1.6 (L) 1.7 - 2.3 [facility] MG/DL LABORATORIES - [facility] Specimen Anatomical Collection Method Collection Time Receive d Time (Source) Location / / Volume Laterality 06/06/2014 5:52 AM 4 5:52 CDT AM CDT Historical Provider LAB BLOOD ADD-ON Performing Organization Address City/[facility] Code Phon e Number [facility] LABORATORIES - [address] [place] [address] [facility] (ABNORMAL) Electrolyte (Chem 4) Panel (06/06/2014 5:52 AM CDT) Patholo gist Method Time Signature Sodium, S 146 (H) 135 - 145 [facility] MMOL/L LABORATORIES - [facility] Potassium, S 4.3 3.6 - 5.2 [facility] MMOL/L LABORATORIES - [facility] Creatinine 2.5 (H) 0.6 - 1.1 [facility] MG/DL LABORATORIES - [facility] eGFR 20 (L) >60 [facility] Non-Black/Afric ML/MIN/BS LABORATORIES - [place]ian A [facility] eGFR-Black/Afri 24 (L) >60 [facility] can [place] ML/MIN/BS LABORATORIES - A [facility] BUN (Blood Urea 20 6 - 21 [facility] Nitrogen), S MG/DL LABORATORIES - [facility] Anion Gap 10 7 - 15 [facility] LABORATORIES - [facility] Glucose, S 82 70 - 140 [facility] MG/DL LABORATORIES - [facility] Chloride, S 118 (H) 98 - 107 [facility] MMOL/L LABORATORIES - [facility] HX Bicarbonate, 18 (L) 22 - 29 [facility] P/S MMOL/L LABORATORIES - [facility] Specimen Anatomical Collection Method Collection Time Receive d Time (Source) Location / / Volume Laterality 06/06/2014 5:52 AM 4 5:52 CDT AM CDT Historical Provider LAB BLOOD ADD-ON Performing Organization Address City/State/ZIP Code Phon e Number [facility] LABORATORIES - [address] [place], [place] [address] [facility] (ABNORMAL) CBC without Differential (06/06/2014 5:52 AM CDT) [facility] Time Signature Hemoglobin 9.9 (L) 12.0 - [facility] 15.5 G/DL LABORATORIES - [facility] Hematocrit 30.8 (L) 34.9 - [facility] 44.5 % LABORATORIES - [facility] RBC Distrib 16.3 (H) 11.9 - [facility] Width 15.5 % LABORATORIES - [facility] Platelet Count 174 150 - 450 [facility] X10(9)/L LABORATORIES - [facility] Erythrocytes 3.71 (L) 3.90 - [facility] 5.03 LABORATORIES - X10(12)/L [facility] MCV 83.0 81.6 - [facility] 98.3 FL LABORATORIES - [facility] Leukocytes 7.3 3.5 - [facility] 10.5 LABORATORIES - X10(9)/L [facility] Specimen Anatomical Collection Method Collection Time Receive d Time (Source) Location / / Volume Laterality 06/06/2014 5:52 AM 4 5:52 CDT AM CDT Historical Provider LAB BLOOD ADD-ON Performing Organization Address City/[facility] Code Phon e Number [facility] LABORATORIES - [address] [place], [place] [address] [facility] Glucose, POCT (06/06/2014 12:54 AM CDT) [facility] Signature Last Intake > 4 hours [facility] LABORATORIES - [facility] Glucose, 92 70 - 140 [facility] POCT, B MG/DL LABORATORIES - [facility] Sample Site, Capillary [facility] Blood Gas, LABORATORIES - POCT [facility] Specimen Anatomical Collection Method Collection Time Receive d Time (Source) Location / / Volume Laterality 06/06/2014 12:54 06/06/2014 AM CDT 12:54 AM CDT Historical Provider LAB POCT ORDERABLES-MANUAL Performing Organization Address City/State/ZIP Code Phon e Number [facility] - [address] [place], [place] [address] [facility] Glucose, POCT (06/05/2014 7:00 PM CDT) [facility] Method Time Signature Glucose, 97 70 - 140 [facility] POCT, B MG/DL [facility] - [facility] Sample Site, Capillary [facility] Blood Gas, LABORATORIES - POCT [facility] Last Intake > 4 hours [facility] Specimen Anatomical Collection Method Collection Time Receive d Time (Source) Location / / Volume Laterality 06/05/2014 7:00 PM 4 7:00 CDT PM CDT Historical Provider LAB POCT ORDERABLES-MANUAL Performing Organization Address City/[facility] Phon e Number [facility] - [address] [phone] [facility] Glucose, POCT (06/05/2014 1:56 PM CDT) [facility] Method Time Signature Glucose, 99 70 - 140 [facility] POCT, B MG/DL [facility] - [facility] Sample Site, Capillary [facility] Blood Gas, LABORATORIES - POCT [facility] Last Intake > 4 hours [facility] Specimen Anatomical Collection Method Collection Time Receive d Time (Source) Location / / Volume Laterality 06/05/2014 1:56 PM 4 1:56 CDT PM CDT Historical Provider LAB POCT ORDERABLES-MANUAL Performing Organization Address City/[facility] Code Phon e Number [facility] - [address] [phone] [facility] V&IRAD Vascular & Intervention (06/05/2014 12:47 PM CDT) Anatomical Region Laterality Modality N/A X-Ray Angiography Specimen (Source) Anatomical Collection Method Collection Time Re ceived Time Location / / Volume Laterality 06/05/2014 12:47 PM CDT Impressions 06/05/2014 1:05 PM CDT Status-post placement of a double-J ureteral stent as detailed. There is no evidence of hydronephrosis. The ureter is visualized and appeared slightly narrowed. This could be related to underlying stricture or spasm. ?? PROCEDURE: Right pelvic transplant kidne y nephrostogram and placement of double- J ureteral stent. ?? CLINICAL INDICATION: This is a 53-year-o ld female with renal failure status-post renal transplant within the right pelvis who presents with obstructive uropathy. The patient underwent placement of a nep hrostomy tube on 06-02-14. Now she prese nts for internalization of stents. ?? TECHNIQUE/FINDINGS: The patient was brou ght to the angiographic suite and was placed supine on the table. The patient's existing tube and right lower quadrant were prepped and draped in standard sterile fashion. Initial power lineworker image was obtain ed demonstrating the tube overlying the right lower quadrant. Small amount of contrast was injected demonstrating proper location of the tube within the collectin g system. The collecting system is decom pressed and ureter was visualized. There was no significant hydronephrosis. Subsequently, the nephrostomy tube was removed and 10F vascular sheath was advanced. W ithin the vascular sheath, a Glidewire a nd Berenstein catheter were advanced and the combination used to cannulate the ureter. The catheter was advanced into the bladder and the wire was removed. A smal l amount of contrast confirmed the posit ion. Subsequently, an Amplatz wire was advanced and over the Amplatz wire, an 8.5F x 16cm double-J ureteral stent was deployed within the collecting system. A small amount of contrast confi contreras the proper position of the stent. Subsequently, the vascular sheath was removed. ?? The patient tolerated the procedure well . There were no immediate complications. ?? PREPROCEDURE: Patient seen, evaluated, h istory reviewed, and approved for sedation. Airway, heart and lung exam satisfactory for sedation. Discussed risks, benefits, alternatives for procedure, and/or s edation, and obtained informed consent. ??Patient understands information and questions answered. Immediately prior to starting the procedure, in the presence of the assisting personnel, procedural paus e was conducted to verify correct patien t identity and verification of procedure to be performed, and as applicable, correct side and site, correct patient position, availability of implants, special eq uipment, or special requirements, and al l image and specimen identification data. Moderate sedation was administered by sedation nurse under my supervision. The roles and responsibilities of care team members, residents, and fellows were discussed. ?? Sedation Time: ??30 minutes ?? Fluoro Time: 7.4 minutes Electronically signed by: ?? Alvaro Ward MD [id number] 05-Jun-2014 13:05 Narrative 06/05/2014 1:05 PM CDT 05-Jun-2014 12:47:00 ??Exam: V&IRAD Vascular & Intervention Indications: Uropathy Obstructive;RIGHT (TX) NEPHROSTOGRAM +/-INTERNALIZATION OF STENT ORIGINAL REPORT - 05-Jun-2014 13:05:00 V&IRAD Vascular & Intervention: Procedure Note Alvaro Ward M.D. - 11/16/2017Format ting of this note might be different from the original. 05-Jun-2014 12:47:00 Exam: V&IRAD Vascul ar & Intervention Indications: Uropathy Obstructive;RIGHT (TX) NEPHROSTOGRAM +/-INTERNALIZATION OF STENT ORIGINAL REPORT - 05-Jun-2014 13:05:00 V&IRAD Vascular & Intervention: IMPRESSION: Status-post placement of a d ouble-J ureteral stent as detailed. There is no evidence of hydronephrosis. The ureter is visualized and appeared slightly narrowed. This could be related to underlying stricture or spasm. PROCEDURE: Right pelvic transplant kidne y nephrostogram and placement of double- J ureteral stent. CLINICAL INDICATION: This is a 53-year-o ld female with renal failure status-post renal transplant within the right pelvis who presents with obstructive uropathy. The patient underwent placement of a nephrostomy tube on 06-02-14. Now she presents for i nternalization of stents. TECHNIQUE/FINDINGS: The patient was brou ght to the angiographic suite and was placed supine on the table. The patient's existing tube and right lower quadrant were prepped and draped in standard sterile fashion. Initial power lineworker image was obtained demonst rating the tube overlying the right lower quadrant. Small amount of contrast was injected demonstrating proper location of the tube within the collecting system. The collecting system is decompressed and ureter was vi sualized. There was no significant hydronephrosis. Subsequently, the nephrostomy tube was removed and 10F vascular sheath was advanced. Within the vascular sheath, a Glidewire and Berenstein catheter were advanced and th e combination used to cannulate the ureter. The catheter was advanced into the bladder and the wire was removed. A small amount of contrast confirmed the position. Subsequently, an Amplatz wire was advanced and over th e Amplatz wire, an 8.5F x 16cm double-J ureteral stent was deployed within the collecting system. A small amount of contrast confirms the proper position of the stent. Subsequently, the vascular sheath was re moved. The patient tolerated the procedure well . There were no immediate complications. PREPROCEDURE: Patient seen, evaluated, h [...] team members, residents, and fellows were discussed. Sedation Time: 30 minutes Fluoro Time: 7.4 minutes Electronically signed by: Alvaro Ward MD [id number] 05-Jun-2014 13:05 Bettina Puri M.D. IMG IR PROCEDURES Glucose, POCT (06/05/2014 5:59 AM CDT) [facility] gist Method Time Signature Glucose, 100 70 - 140 [facility] POCT, B MG/DL LABORATORIES - [facility] Sample Site, Capillary [facility] Blood Gas, LABORATORIES - POCT [facility] Last Intake NPO [facility] LABORATORIES - [facility] Specimen Anatomical Collection Method Collection Time Receive d Time (Source) Location / / Volume Laterality 06/05/2014 5:59 AM 4 5:59 CDT AM CDT Historical Provider LAB POCT ORDERABLES-MANUAL Performing Organization Address City/[facility] Code Phon e Number [facility] LABORATORIES - [address] Phosphorus Inorganic (06/05/2014 5:49 AM CDT) Analysis Performed At [facility] logist Time Signature Phosphorus 4.1 2.5 - 4.5 [facility] (Inorganic), S MG/DL LABORATORIES - [facility] Specimen Anatomical Collection Method Collection Time Receive d Time (Source) Location / / Volume Laterality 06/05/2014 5:49 AM 4 5:49 CDT AM CDT Bettina Puri M.D. LAB BLOOD ADD-ON Performing Organization Address City/[facility] Phon e Number [facility] LABORATORIES - [address] (ABNORMAL) CBC without Differential (06/05/2014 5:49 AM CDT) [facility] Method Time Signature Erythrocytes 3.59 (L) 3.90 - [facility] 5.03 LABORATORIES - X10(12)/L [facility] MCV 83.0 81.6 - [facility] 98.3 FL LABORATORIES - [facility] Leukocytes 6.3 3.5 - [facility] 10.5 LABORATORIES - X10(9)/L [facility] Hemoglobin 9.7 (L) 12.0 - [facility] 15.5 G/DL LABORATORIES - [facility] Hematocrit 29.8 (L) 34.9 - [facility] 44.5 % [facility] - [facility] RBC Distrib 16.6 (H) 11.9 - [facility] Width 15.5 % [facility] Platelet Count 178 150 - 450 [facility] X10(9)/L [facility] - [facility] Specimen Anatomical Collection Method Collection Time Receive d Time (Source) Location / / Volume Laterality 06/05/2014 5:49 AM 4 5:49 CDT AM CDT Bettina Puri M.D. LAB BLOOD ADD-ON Performing Organization Address City/State/ZIP Code Phon e Number [facility] LABORATORIES - [address] [place], [place] [address] [facility] (ABNORMAL) Electrolyte (Chem 4) Panel (06/05/2014 5:49 AM CDT) [facility] Method Time Signature Sodium, S 147 (H) 135 - 145 [facility] MMOL/L [facility] Potassium, S 4.1 3.6 - 5.2 [facility] MMOL/L [facility] Chloride, S 118 (H) 98 - 107 [facility] MMOL/L [facility] - [facility] HX Bicarbonate, 16 (L) 22 - 29 [facility] P/S MMOL/L [facility] Creatinine 3.4 (H) 0.6 - 1.1 [facility] MG/DL [facility] eGFR 14 (L) >60 [facility] Non-Black/Afric ML/MIN/BS LABORATORIES - [place] A [facility] eGFR-Black/Afri 17 (L) >60 [facility] can [place] ML/MIN/BS LABORATORIES - [facility] BUN (Blood Urea 31 (H) 6 - 21 [facility] Nitrogen), S MG/DL [facility] Anion Gap 13 7 - 15 [facility] LABORATORIES - [facility] Glucose, S 106 70 - 140 [facility] MG/DL LABORATORIES - [facility] Specimen Anatomical Collection Method Collection Time Receive d Time (Source) Location / / Volume Laterality 06/05/2014 5:49 AM 4 5:49 CDT AM CDT Bettina Puri M.D. LAB BLOOD ADD-ON Performing Organization Address City/[facility]/ZIP Code Phon e Number [facility] LABORATORIES - [address] [place] [address] [facility] (ABNORMAL) Calcium, Total (06/05/2014 5:49 AM CDT) [facility] gist Method Time Signature Calcium, 8.5 (L) 8.9 - 10.1 [facility] Total, S MG/DL LABORATORIES - [facility] Specimen Anatomical Collection Method Collection Time Receive d Time (Source) Location / / Volume Laterality 06/05/2014 5:49 AM 4 5:49 CDT AM CDT Bettina Puri M.D. LAB BLOOD ADD-ON Performing Organization Address City/State/ZIP Code Phon e Number [facility] LABORATORIES - [address] [place] [address] [facility] (ABNORMAL) Magnesium (06/05/2014 5:49 AM CDT) Analysis Performed At [facility] logist Time Signature Magnesium, S 1.4 (L) 1.7 - 2.3 [facility] MG/DL LABORATORIES - [facility] Specimen Anatomical Collection Method Collection Time Receive d Time (Source) Location / / Volume Laterality 06/05/2014 5:49 AM 4 5:49 CDT AM CDT Bettina Puri M.D. LAB BLOOD ADD-ON Performing Organization Address City/State/ZIP Code Phon e Number [facility] LABORATORIES - [address] [place] [address] [facility] Glucose, POCT (06/04/2014 10:06 PM CDT) [facility] Method Time Signature Glucose, 136 70 - 140 [facility] POCT, B MG/DL LABORATORIES - [facility] Sample Site, Capillary [facility] Blood Gas, LABORATORIES - POCT [facility] Last Intake 3-4 hours [facility] Specimen Anatomical Collection Method Collection Time Receive d Time (Source) Location / / Volume Laterality 06/04/2014 10:06 06/04/2014 PM CDT 10:06 PM CDT Historical Provider LAB POCT ORDERABLES-MANUAL Performing Organization Address City/[facility]/ZIP Code Phon e Number [facility] LABORATORIES - 200 [place], [place] [address] [facility] Glucose, POCT (06/04/2014 6:17 PM CDT) [facility] Method Time Signature Glucose, 139 70 - 140 [facility] POCT, B MG/DL LABORATORIES - [facility] Sample Site, Capillary [facility] Blood Gas, LABORATORIES - POCT [facility] Last Intake > 4 hours [facility] - [facility] Specimen Anatomical Collection Method Collection Time Receive d Time (Source) Location / / Volume Laterality 06/04/2014 6:17 PM 4 6:17 CDT PM CDT Historical Provider LAB POCT ORDERABLES-MANUAL Performing Organization Address City/[facility]/ZIP Code Phon e Number [facility] LABORATORIES - 200 [place], [place] [address] [facility] Glucose, POCT (06/04/2014 6:33 AM CDT) [facility] Signature Last Intake > 4 hours [facility] Glucose, 106 70 - 140 [facility] POCT, B MG/DL LABORATORIES - [facility] Sample Site, Capillary [facility] Blood Gas, LABORATORIES - POCT [facility] Specimen Anatomical Collection Method Collection Time Receive d Time (Source) Location / / Volume Laterality 06/04/2014 6:33 AM 4 6:33 CDT AM CDT Historical Provider LAB POCT ORDERABLES-MANUAL Performing Organization Address City/[facility]/ZIP [facility] Phon e Number [facility] LABORATORIES - 200 [place], [place] [address] [facility] (ABNORMAL) Electrolyte (Chem 4) Panel (06/04/2014 5:14 AM CDT) [facility] Signature Chloride, S 115 (H) 98 - 107 [facility] MMOL/L [facility] HX Bicarbonate, 16 (L) 22 - 29 [facility] P/S MMOL/L [facility] Creatinine 5.6 (H) 0.6 - 1.1 [facility] MG/DL LABORATORIES - [facility] eGFR 8 (L) >60 [facility] Non-Black/Afric ML/MIN/BS LABORATORIES - an [place] A [facility] Anion Gap 17 (H) 7 - 15 [facility] LABORATORIES - [facility] Glucose, S 98 70 - 140 [facility] MG/DL LAB[facility]ATORIES - [facility] Sodium, S 148 (H) 135 - 145 [facility] MMOL/L LABORATORIES - [facility] Potassium, S 4.6 3.6 - 5.2 [facility] MMOL/L LABORATORIES - [facility] eGFR-Black/Afri 10 (L) >60 [facility] can [place] ML/MIN/BS LABORATORIES - A [facility] BUN (Blood Urea 52 (H) 6 - 21 [facility] Nitrogen), S MG/DL LABORATORIES - [facility] Specimen Anatomical Collection Method Collection Time Receive d Time (Source) Location / / Volume Laterality 06/04/2014 5:14 AM 4 5:14 CDT AM CDT Milli Johnson APRNNDoc LAB BLOOD ADD-ON Performing Organization Address City/State/ZIP Code Phon e Number [facility] LABORATORIES - [address] (ABNORMAL) Phosphorus Inorganic (06/04/2014 5:14 AM CDT) [facility] gist Method Time Signature Phosphorus 6.2 (H) 2.5 - 4.5 [facility] (Inorganic), S MG/DL LABORATORIES - [facility] Specimen Anatomical Collection Method Collection Time Receive d Time (Source) Location / / Volume Laterality 06/04/2014 5:14 AM 4 5:14 CDT AM CDT Historical Provider LAB BLOOD ADD-ON Performing Organization Address City/State/[facility] Code Phon e Number [facility] LABORATORIES - [address] [place] [phone] [facility] (ABNORMAL) Calcium, Total (06/04/2014 5:14 AM CDT) [facility] gist Method Time Signature Calcium, 8.6 (L) 8.9 - 10.1 [facility] Total, S MG/DL LABORATORIES - [facility] Specimen Anatomical Collection Method Collection Time Receive d Time (Source) Location / / Volume Laterality 06/04/2014 5:14 AM 4 5:14 CDT AM CDT Historical Provider LAB BLOOD ADD-ON Performing Organization Address City/State/ZIP Code Phon e Number [facility] LABORATORIES - [address] [place], [place] [address] [facility] (ABNORMAL) CBC without Differential (06/04/2014 5:14 AM CDT) [facility] Method Time Signature Hemoglobin 9.9 (L) 12.0 - [facility] 15.5 G/DL LABORATORIES - [facility] Hematocrit 30.4 (L) 34.9 - [facility] 44.5 % LABORATORIES - [facility] Leukocytes 6.7 3.5 - [facility] 10.5 LABORATORIES - X10(9)/L [facility] Erythrocytes 3.67 (L) 3.90 - [facility] 5.03 LABORATORIES - X10(12)/L [facility] MCV 82.8 81.6 - [facility] 98.3 FL LABORATORIES [facility] RBC Distrib 16.8 (H) 11.9 - [facility] Width 15.5 % [facility] Platelet Count 191 150 - 450 [facility] X10(9)/L [facility] - [facility] Specimen Anatomical Collection Method Collection Time Receive d Time (Source) Location / / Volume Laterality 06/04/2014 5:14 AM 4 5:14 CDT AM CDT Historical Provider LAB BLOOD ADD-ON Performing Organization Address City/State/ZIP Code Phon e Number [facility] LABORATORIES - [address] [place], [place] [address] [facility] Magnesium (06/04/2014 5:14 AM CDT) P athologist Signature Magnesium, S 1.7 1.7 - 2.3 [facility] MG/DL LABORATORIES - [facility] Specimen Anatomical Collection Method Collection Time Receive d Time (Source) Location / / Volume Laterality 06/04/2014 5:14 AM 4 5:14 CDT AM CDT Historical Provider LAB BLOOD ADD-ON Performing Organization Address City/State/ZIP Code Phon e Number [facility] LABORATORIES - [address] [place], [place] [address] [facility] Glucose, POCT (06/03/2014 11:10 PM CDT) [facility] Method Time Signature Last Intake > 4 hours [facility] Glucose, 78 70 - 140 [facility] POCT, B MG/DL LABORATORIES - [facility] Sample Site, Capillary [facility] Blood Gas, LABORATORIES - POCT [facility] Specimen Anatomical Collection Method Collection Time Receive d Time (Source) Location / / Volume Laterality 06/03/2014 11:10 06/03/2014 PM CDT 11:10 PM CDT Historical Provider LAB POCT ORDERABLES-MANUAL Performing Organization Address City/[facility] Code Phon e Number [facility] LABORATORIES - [address] [place], [place] [address] [facility] (ABNORMAL) Electrolyte (Chem 4) Panel (06/03/2014 11:07 PM CDT) [facility] Method Time Signature Sodium, S 148 (H) 135 - 145 [facility] MMOL/L LABORATORIES - [facility] Potassium, S 4.5 3.6 - 5.2 [facility] MMOL/L LABORATORIES - [facility] Creatinine 6.3 (H) 0.6 - 1.1 [facility] MG/DL LABORATORIES - [facility] eGFR 7 (L) >60 [facility] Non-Black/Afric ML/MIN/BS LABORATORIES - [place] A [facility] eGFR-Black/Afri 8 (L) >60 [facility] can [place] ML/MIN/BS LABORATORIES - A [facility] BUN (Blood Urea 58 (H) 6 - 21 [facility] Nitrogen), S MG/DL [facility] Anion Gap 16 (H) 7 - 15 [facility] Glucose, S 79 70 - 140 [facility] MG/DL LABORATORIES - [facility] Chloride, S 114 (H) 98 - 107 [facility] MMOL/L LABORATORIES - [facility] HX Bicarbonate, 18 (L) 22 - 29 [facility] P/S MMOL/L LABORATORIES - [facility] Specimen Anatomical Collection Method Collection Time Receive d Time (Source) Location / / Volume Laterality 06/03/2014 11:07 06/03/2014 PM CDT 11:07 PM CDT Comfort Herbert M.D. LAB BLOOD ADD-ON Performing Organization Address City/[facility] Code Phon e Number [facility] LABORATORIES - [address] [place] [phone] [facility] Glucose, POCT (06/03/2014 6:57 PM CDT) [facility] Method Time Signature Glucose, 103 70 - 140 [facility] POCT, B MG/DL LABORATORIES - [facility] Sample Site, Capillary [facility] Blood Gas, LABORATORIES - POCT [facility] Last Intake > 4 hours [facility] LABORATORIES - [facility] Specimen Anatomical Collection Method Collection Time Receive d Time (Source) Location / / Volume Laterality 06/03/2014 6:57 PM 4 6:57 CDT PM CDT Historical Provider LAB POCT ORDERABLES-MANUAL Performing Organization Address City/[facility] Phon e Number [facility] LABORATORIES - [address] [place] [address] [facility] (ABNORMAL) Electrolyte (Chem 4) Panel (06/03/2014 3:41 PM CDT) [facility] [employer] Method Time Signature Sodium, S 148 (H) 135 - 145 [facility] MMOL/L [facility] Potassium, S 5.4 (H) 3.6 - 5.2 [facility] MMOL/L [facility] eGFR-Black/Afri 7 (L) >60 [facility] can [place] ML/MIN/BS LABORATORIES - A [facility] BUN (Blood Urea 66 (H) 6 - 21 [facility] Nitrogen), S MG/DL [facility] Chloride, S 114 (H) 98 - 107 [facility] MMOL/L [facility] HX Bicarbonate, 15 (L) 22 - 29 [facility] P/S MMOL/L [facility] Creatinine 7.2 (H) 0.6 - 1.1 [facility] MG/DL [facility] eGFR 6 (L) >60 [facility] Non-Black/Afric ML/MIN/BS LABORATORIES - an [place] A [facility] Anion Gap 19 (H) 7 - 15 [facility] Glucose, S 108 70 - 140 [facility] MG/DL LABORATORIES - [facility] Specimen Anatomical Collection Method Collection Time Receive d Time (Source) Location / / Volume Laterality 06/03/2014 3:41 PM 4 3:41 CDT PM CDT Comfort Herbert M.D. LAB BLOOD ADD-ON Performing Organization Address City/[facility]/ZIP Code Phon e Number [facility] LABORATORIES - [address] [place], [place] [address] [facility] (ABNORMAL) BMP (Basic Metabolic Panel) (06/03/2014 12:33 PM CDT) [facility] [employer] Method Time Signature Sodium, P 141 135 - 145 [facility] MMOL/L LABORATORIES - [facility] Potassium, P 4.7 3.6 - 5.2 [facility] MMOL/L LABORATORIES - [facility] Anion Gap 14 7 - 15 [facility] LABORATORIES - [facility] Creatinine 7.8 (H) 0.6 - 1.1 [facility] MG/DL LABORATORIES - [facility] Chloride, S 108 (H) 98 - 107 [facility] MMOL/L LABORATORIES - [facility] BUN (Blood Urea 66 (H) 6 - 21 [facility] Nitrogen), S MG/DL LABORATORIES - [facility] HX Bicarbonate, 19 (L) 22 - 29 [facility] P/S MMOL/L LABORATORIES - [facility] Glucose, S 205 (H) 70 - 140 [facility] MG/DL LABORATORIES - [facility] eGFR 5 (L) >60 [facility] Non-Black/Afric ML/MIN/BS LABORATORIES - [place] [facility] eGFR-Black/Afri 7 (L) >60 [facility] can [place] ML/MIN/BS LABORATORIES - A [facility] Specimen Anatomical Collection Method Collection Time Receive d Time (Source) Location / / Volume Laterality 06/03/2014 12:33 06/03/2014 PM CDT 12:33 PM CDT Comfort Herbert M.D. LAB BLOOD ADD-ON Performing Organization Address City/State/ZIP Code Phon e Number [facility] LABORATORIES - [address] (ABNORMAL) Glucose, POCT (06/03/2014 11:25 AM CDT) Patholo gist Method Time Signature Glucose, 256 (H) 70 - 140 [facility] POCT, B MG/DL LABORATORIES - [facility] Sample Site, Capillary [facility] Blood Gas, LABORATORIES - POCT [facility] Specimen Anatomical Collection Method Collection Time Receive d Time (Source) Location / / Volume Laterality 06/03/2014 11:25 06/03/2014 AM CDT 11:25 AM CDT Historical Provider LAB POCT ORDERABLES-MANUAL Performing Organization Address City/State/[facility] Phon e Number [facility] LABORATORIES - [address] [place] [address] [facility] US Kidney Transplant Doppler (06/03/2014 8:54 AM CDT) Anatomical Region Laterality Modality Abdomen, Pelvis, Renal N/A Ultrasound Specimen (Source) Anatomical Collection Method Collection Time Re ceived Time Location / / Volume Laterality 06/03/2014 8:54 AM CDT Impressions 06/03/2014 9:15 AM CDT 1. RLQ renal transplant with interval pl acement of a percutaneous nephrostomy tube since yesterday with residual mild upper pole hydronephrosis. 2. Patent renal transplant artery and ve in. No renal artery stenosis. 3. Borderline intrarenal RIs. FINDINGS: TRANSPLANT DATE: 2007, elsewhere. [place] [facility] DATA Transplant Renal Length: ??16.0 cm Parenchymal Echogenicity: ??Normal Renal Mass: ??No Hydronephrosis: ??Mild upper pole hydron ephrosis present. Peritransplant Fluid Collection: ??No DOPPLER DATA/IMPRESSION Intrarenal RI: 0.75 Upper 0.78 Mid 0.74 Lower Intrarenal RI: ??Borderline Iliac Artery Velocity: 69 cm/sec above anastomosis) 85 cm/sec (near anastomosis) Renal Artery Velocity: 73 cm/sec Prox (anastomosis) 57 cm/sec Mid 54 cm/sec Distal Renal to Iliac Artery Velocity Ratio (RI R): ??0.85 Renal Artery: ??Normal Renal Vein Patency: ??Patent Common Femoral Artery: Left: ??Triphasic (normal) Additional Comments/Comparison: Portable exam. Interval placement of a percutaneous nephrostomy tube yesterday with decreased hydronephrosis compared to outside CT 06/02/2014; mild upper pole hydronephr osis persists. Small volume ascites left lower quadrant. Contracted urinary bladder. Electronically signed by: ?? Silvia Adorno MD [phone] 03-Jun-2014 09:1 5 Narrative 06/03/2014 9:15 AM CDT 03-Jun-2014 08:54:00 ??Exam: US Renal Transplant w-doppler Indications: [id number] ??US KIDNEY TX DOPPLER - elevated creatinine, further evaluate kidney; ? rejection, ? obstruction ORIGINAL REPORT - 03-Jun-2014 09:15:00 EXAM: ??US Renal Transplant with color a nd spectral Doppler analysis COMPARISON: No prior ultrasound. Correla tion to outside CT abdomen pelvis 06/02/2014. Procedure Note Praveen Adorno M.D. - 11/16/2017Form atting of this note might be different from the original. 03-Jun-2014 08:54:00 Exam: US Renal Matthews splant w-doppler Indications: [id number] US KIDNEY TX DOPPLER - elevated creatinine, further evaluate kidney; ? rejection, ? obstruction ORIGINAL REPORT - 03-Jun-2014 09:15:00 EXAM: US Renal Transplant with color and spectral Doppler analysis COMPARISON: No prior ultrasound. Correla tion to outside CT abdomen pelvis 06/02/2014. IMPRESSION: 1. RLQ renal transplant with interval pl acement of a percutaneous nephrostomy tube since yesterday with residual mild upper pole hydronephrosis. 2. Patent renal transplant artery and ve in. No renal artery stenosis. 3. Borderline intrarenal RIs. FINDINGS: TRANSPLANT DATE: 2007, elsewhere. [place] DATA Transplant Renal Length: 16.0 cm Parenchymal Echogenicity: Normal Renal Mass: No Hydronephrosis: Mild upper pole hydronep hrosis present. Peritransplant Fluid Collection: No DOPPLER DATA/IMPRESSION Intrarenal RI: 0.75 Upper 0.78 Mid 0.74 Lower Intrarenal RI: Borderline Iliac Artery Velocity: 69 cm/sec above anastomosis) 85 cm/sec (near anastomosis) Renal Artery Velocity: 73 cm/sec Prox (anastomosis) 57 cm/sec Mid 54 cm/sec Distal Renal to Iliac Artery Velocity Ratio (RI R): 0.85 Renal Artery: Normal Renal Vein Patency: Patent Common Femoral Artery: Left: Triphasic (normal) Additional Comments/Comparison: Portable exam. Interval placement of a percutaneous nephrostomy tube yesterday with decreased hydronephrosis compared to outside CT 06/02/2014; mild upper pole hydronephrosis persists. Small volume ascites left lowe r quadrant. Contracted urinary bladder. Electronically signed by: Silvia Adorno MD [phone] 03-Jun-2014 09:1 5 [place]ina [place] US PROCEDURES (ABNORMAL) Electrolyte (Chem 4) Panel (06/03/2014 8:42 AM CDT) [facility] Method Time Signature Sodium, S 150 (H) 135 - 145 [facility] MMOL/L LABORATORIES [facility] Potassium, S 5.3 (H) 3.6 - 5.2 [facility] MMOL/L LABORATORIES [facility] Chloride, S 117 (H) 98 - 107 [facility] MMOL/L LABORATORIES [facility] HX Bicarbonate, 14 (L) 22 - 29 [facility] P/S MMOL/L LABORATORIES - [facility] Creatinine 8.5 (H) 0.6 - 1.1 [facility] MG/DL LABORATORIES - [facility] eGFR 5 (L) >60 [facility] Non-Black/Afric ML/MIN/BS LABORATORIES - [place] A [facility] eGFR-Black/Afri 6 (L) >60 [facility] can [place] ML/MIN/BS LABORATORIES - A [facility] BUN (Blood Urea 73 (H) 6 - 21 [facility] Nitrogen), S MG/DL LABORATORIES - [facility] Anion Gap 19 (H) 7 - 15 [facility] LABORATORIES - [facility] Glucose, S 66 (L) 70 - 140 [facility] MG/DL LABORATORIES - [facility] Specimen Anatomical Collection Method Collection Time Receive d Time (Source) Location / / Volume Laterality 06/03/2014 8:42 AM 4 8:42 CDT AM CDT Comfort Herbert M.D. LAB BLOOD ADD-ON Performing Organization Address City/[facility]/ZIP Code Phon e Number [facility] LABORATORIES - [address] [place] [address] [facility] (ABNORMAL) Mycophenolic Acid (06/03/2014 8:42 AM CDT) Patholo gist Method Time Signature Mycophenolic 0.7 (L) 1.0 - 3.5 [facility] Acid MCG/ML LABORATORIES - [facility] MPA Glucuronide 148 (H) 35 - 100 [facility] MCG/ML [facility] - [facility] Specimen Anatomical Collection Method Collection Time Receive d Time (Source) Location / / Volume Laterality 06/03/2014 8:42 AM 4 8:42 CDT AM CDT Comfort Herbert M.D. LAB BLOOD NON ADD-ON Performing Organization Address City/State/ZIP Code Phon e Number [facility] LABORATORIES - [address] [place] [address] [facility] (ABNORMAL) Sirolimus Level (06/03/2014 8:42 AM CDT) P athologist Signature Sirolimus Time . [facility] of Dose LABORATORIES - [facility] Comment: Not Specified Dose, mg . MG [facility] LABORATO [facility] - [facility] Comment: Not Specified Sirolimus, B 3.4 (L) 4.0 - 20.0 (Trough) [facility] NG/ML - [facility] PUS Sirolimus Date of Last . [facility] Dose - [facility] PUS Comment: Not Specified Specimen Anatomical Collection Method Collection Time Receive d Time (Source) Location / / Volume Laterality 06/03/2014 8:42 AM 4 8:42 CDT AM CDT Comfort Herbert M.D. LAB BLOOD NON ADD-ON Performing Organization Address City/[facility]/ZIP Code Phon e Number [facility] LABORATORIES - [address] [place] [address] [facility] (ABNORMAL) Glucose, POCT (06/03/2014 8:39 AM CDT) [facility] Method Time Signature Glucose, POCT, 67 (L) 70 - 140 [facility] B MG/DL LABORATORIES - [facility] Sample Site, Venstick [facility] Blood Gas, LABORATORIES - POCT [facility] Specimen Anatomical Collection Method Collection Time Receive d Time (Source) Location / / Volume Laterality 06/03/2014 8:39 AM 4 8:39 CDT AM CDT Historical Provider LAB POCT ORDERABLES-MANUAL Performing Organization Address City/[facility]/ZIP Code Phon e Number [facility] LABORATORIES - [address] [place] [address] 05 [facility] Glucose, POCT (06/03/2014 6:51 AM CDT) [facility] Method Time Signature Glucose, 73 70 - 140 [facility] POCT, B MG/DL LABORATORIES - [facility] Sample Site, Capillary [facility] Blood Gas, LABORATORIES - POCT [facility] Specimen Anatomical Collection Method Collection Time Receive d Time (Source) Location / / Volume Laterality 06/03/2014 6:51 AM 4 6:51 CDT AM CDT Historical Provider LAB POCT ORDERABLES-MANUAL Performing Organization Address City/[facility] Phon e Number [facility] LABORATORIES - [address] [place] [address] [facility] Glucose, POCT (06/03/2014 5:31 AM CDT) [facility] Method Time Signature Glucose, 87 70 - 140 [facility] POCT, B MG/DL LABORATORIES - [facility] Sample Site, Capillary [facility] Blood Gas, LABORATORIES - POCT [facility] Specimen Anatomical Collection Method Collection Time Receive d Time (Source) Location / / Volume Laterality 06/03/2014 5:31 AM 4 5:31 CDT AM CDT Historical Provider LAB POCT ORDERABLES-MANUAL Performing Organization Address City/[facility]/ZIP Code Phon e Number [facility] LABORATORIES - [address] [place] [address] [facility] Glucose, POCT (06/03/2014 5:00 AM CDT) [facility] Method Time Signature Glucose, 98 70 - 140 [facility] POCT, B MG/DL LABORATORIES - [facility] Sample Site, Capillary [facility] Blood Gas, LABORATORIES - POCT [facility] Specimen Anatomical Collection Method Collection Time Receive d Time (Source) Location / / Volume Laterality 06/03/2014 5:00 AM 4 5:00 CDT AM CDT Historical Provider LAB POCT ORDERABLES-MANUAL Performing Organization Address [facility] Phon e Number [facility] LABORATORIES - [address] [place] [address] [facility] (ABNORMAL) Calcium, Total (06/03/2014 4:29 AM CDT) [facility] gist Method Time Signature Calcium, 8.7 (L) 8.9 - 10.1 [facility] Total, S MG/DL LABORATORIES - [facility] Specimen Anatomical Collection Method Collection Time Receive d Time (Source) Location / / Volume Laterality 06/03/2014 4:29 AM 4 4:29 CDT AM CDT Comfort Herbert M.D. LAB BLOOD ADD-ON Performing Organization Address City/[facility]/ZIP Code Phon e Number [facility] LABORATORIES - [address] [place] [address] [facility] Magnesium (06/03/2014 4:29 AM CDT) P athologist Signature Magnesium, S 2.2 1.7 - 2.3 [facility] MG/DL LABORATORIES - [facility] Specimen Anatomical Collection Method Collection Time Receive d Time (Source) Location / / Volume Laterality 06/03/2014 4:29 AM 4 4:29 CDT AM CDT Comfort Herbert M.D. LAB BLOOD ADD-ON Performing Organization Address City/[facility]/ZIP Code Phon e Number [facility] LABORATORIES - [address] [place], [place] [address] [facility] (ABNORMAL) CBC with Differential (06/03/2014 4:29 AM CDT) [facility] Method Time Signature Erythrocytes 4.12 3.90 - [facility] 5.03 LABORATORIES - X10(12)/L [facility] MCV 83.3 81.6 - [facility] 98.3 FL LABORATORIES - [facility] RBC Distrib 17.1 (H) 11.9 - [facility] Width 15.5 % LABORATORIES - [facility] Platelet Count 199 150 - 450 [facility] X10(9)/L LABORATORIES - [facility] Lymphocytes 1.22 0.90 - [facility] 2.90 LABORATORIES - X10(9)/L [facility] Monocytes 0.87 0.30 - [facility] 0.90 LABORATORIES - X10(9)/L [facility] Hemoglobin 11.1 (L) 12.0 - [facility] 15.5 G/DL LABORATORIES - [facility] Hematocrit 34.3 (L) 34.9 - [facility] 44.5 % LABORATORIES - [facility] Leukocytes 7.5 3.5 - [facility] 10.5 LABORATORIES - X10(9)/L [facility] Neutrophils 5.25 1.70 - [facility] 7.00 LABORATORIES - X10(9)/L [facility] Eosinophils 0.12 0.05 - [facility] 0.50 LABORATORIES - X10(9)/L [facility] Basophils 0.01 0.00 - [facility] 0.30 LABORATORIES - X10(9)/L [facility] Specimen Anatomical Collection Method Collection Time Receive d Time (Source) Location / / Volume Laterality 06/03/2014 4:29 AM 4 4:29 CDT AM CDT Comfort Herbert M.D. LAB BLOOD ADD-ON Performing Organization Address City/State/ZIP Code Phon e Number [facility] LABORATORIES - [address] [place] [address] [facility] (ABNORMAL) Phosphorus Inorganic (06/03/2014 4:29 AM CDT) [facility] Method Time Signature Phosphorus 7.7 (H) 2.5 - 4.5 [facility] (Inorganic), S MG/DL LABORATORIES - [facility] Specimen Anatomical Collection Method Collection Time Receive d Time (Source) Location / / Volume Laterality 06/03/2014 4:29 AM 4 4:29 CDT AM CDT Comfort Herbert M.D. LAB BLOOD ADD-ON Performing Organization Address City/State/ZIP Code Phon e Number [facility] LABORATORIES - [address] [place], [place] [address] [facility] (ABNORMAL) Electrolyte (Chem 4) Panel (06/03/2014 4:29 AM CDT) [facility] Method Time Signature Chloride, S 118 (H) 98 - 107 [facility] MMOL/L LABORATORIES - [facility] HX Bicarbonate, 13 (L) 22 - 29 [facility] P/S MMOL/L LABORATORIES - [facility] eGFR-Black/Afri 6 (L) >60 [facility] can [place]ian ML/MIN/BS LABORATORIES - A [facility] BUN (Blood Urea 79 (H) 6 - 21 [facility] Nitrogen), S MG/DL LABORATORIES - [facility] Sodium, S 150 (H) 135 - 145 [facility] MMOL/L LABORATORIES - [facility] Potassium, S 5.2 3.6 - 5.2 [facility] MMOL/L LABORATORIES - [facility] Creatinine 9.0 (H) 0.6 - 1.1 [facility] MG/DL LABORATORIES - [facility] eGFR 5 (L) >60 [facility] Non-Black/Afric ML/MIN/BS LABORATORIES - an [place]ian A [facility] Anion Gap 19 (H) 7 - 15 [facility] LABORATORIES - [facility] Glucose, S 90 70 - 140 [facility] MG/DL LABORATORIES - [facility] Specimen Anatomical Collection Method Collection Time Receive d Time (Source) Location / / Volume Laterality 06/03/2014 4:29 AM 4 4:29 CDT AM CDT Comfort Herbert M.D. LAB BLOOD ADD-ON Performing Organization Address City/State/ZIP Code Phon e Number [facility] LABORATORIES - [address] [place] [address] [facility] Glucose, POCT (06/03/2014 4:17 AM CDT) [facility] Method Time Signature Glucose, 103 70 - 140 [facility] POCT, B MG/DL LABORATORIES - [facility] Sample Site, Capillary [facility] Blood Gas, LABORATORIES - POCT [facility] Specimen Anatomical Collection Method Collection Time Receive d Time (Source) Location / / Volume Laterality 06/03/2014 4:17 AM 4 4:17 CDT AM CDT Historical Provider LAB POCT ORDERABLES-MANUAL Performing Organization Address City/[facility] Phon e Number [facility] LABORATORIES - [address] [place], [place] [address] [facility] Glucose, POCT (06/03/2014 3:35 AM CDT) [facility] Method Time Signature Glucose, 90 70 - 140 [facility] POCT, B MG/DL LABORATORIES - [facility] Sample Site, Capillary [facility] Blood Gas, LABORATORIES - POCT [facility] Specimen Anatomical Collection Method Collection Time Receive d Time (Source) Location / / Volume Laterality 06/03/2014 3:35 AM 4 3:35 CDT AM CDT Historical Provider LAB POCT ORDERABLES-MANUAL Performing Organization Address City/[facility] Phon e Number [facility] LABORATORIES - [address] [place], [place] [address] [facility] Glucose, POCT (06/03/2014 3:01 AM CDT) [facility] Method Time Signature Glucose, 108 70 - 140 [facility] POCT, B MG/DL LABORATORIES - [facility] Sample Site, Capillary [facility] Blood Gas, LABORATORIES - POCT [facility] Specimen Anatomical Collection Method Collection Time Receive d Time (Source) Location / / Volume Laterality 06/03/2014 3:01 AM 4 3:01 CDT AM CDT Historical Provider LAB POCT ORDERABLES-MANUAL Performing Organization Address City/[facility]/ZIP [facility] Phon e Number [facility] LABORATORIES - [address] [place], [place] [address] [facility] (ABNORMAL) Glucose, POCT (06/03/2014 2:30 AM CDT) [facility] Method Time Signature Glucose, 58 (L) 70 - 140 [facility] POCT, B MG/DL LABORATORIES - [facility] Sample Site, Capillary [facility] Blood Gas, LABORATORIES - POCT [facility] Specimen Anatomical Collection Method Collection Time Receive d Time (Source) Location / / Volume Laterality 06/03/2014 2:30 AM 4 2:30 CDT AM CDT Historical Provider LAB POCT ORDERABLES-MANUAL Performing Organization Address City/[facility]/ZIP [facility] Phon e Number [facility] LABORATORIES - [address] [place], [place] [address] [facility] (ABNORMAL) Glucose, POCT (06/03/2014 2:15 AM CDT) [facility] Method Time Signature Glucose, 61 (L) 70 - 140 [facility] POCT, B MG/DL LABORATORIES - [facility] Sample Site, Capillary [facility] Blood Gas, LABORATORIES - POCT [facility] Specimen Anatomical Collection Method Collection Time Receive d Time (Source) Location / / Volume Laterality 06/03/2014 2:15 AM 4 2:15 CDT AM CDT Historical Provider LAB POCT ORDERABLES-MANUAL Performing Organization Address City/[facility]/ZIP Code Phon e Number [facility] LABORATORIES - [address] [place] [address] [facility] (ABNORMAL) Glucose, POCT (06/03/2014 2:00 AM CDT) [facility] Signature Glucose, 66 (L) 70 - 140 [facility] POCT, B MG/DL LABORATORIES - [facility] Sample Site, Capillary [facility] Blood Gas, LABORATORIES - POCT [facility] Specimen Anatomical Collection Method Collection Time Receive d Time (Source) Location / / Volume Laterality 06/03/2014 2:00 AM 4 2:00 CDT AM CDT Historical Provider LAB POCT ORDERABLES-MANUAL Performing Organization Address City/State/ZIP Code Phon e Number [facility] LABORATORIES - [address] [place] [address] [facility] Glucose, POCT (06/03/2014 1:33 AM CDT) [facility] Method [place] Signature Glucose, 121 70 - 140 [facility] POCT, B MG/DL LABORATORIES - [facility] Sample Site, Capillary [facility] Blood Gas, LABORATORIES - POCT [facility] Specimen Anatomical Collection Method Collection Time Receive d Time (Source) Location / / Volume Laterality 06/03/2014 1:33 AM 4 1:33 CDT AM CDT Historical Provider LAB POCT ORDERABLES-MANUAL Performing Organization Address City/[facility]/ZIP Code Phon e Number [facility] LABORATORIES - [address] [place] [address] [facility] (ABNORMAL) BMP (Basic Metabolic Panel) (06/02/2014 11:51 PM CDT) [facility] Method Time Signature Sodium, P 147 (H) 135 - 145 [facility] MMOL/L LABORATORIES - [facility] Potassium, P 5.9 (H) 3.6 - 5.2 [facility] MMOL/L LABORATORIES - [facility] eGFR 4 (L) >60 [facility] Non-Black/Afric ML/MIN/BS LABORATORIES - [place] A [facility] eGFR-Black/Afri 5 (L) >60 [facility] can [place] ML/MIN/BS LABORATORIES - A [facility] BUN (Blood Urea 84 (H) 6 - 21 [facility] Nitrogen), S MG/DL LABORATORIES - [facility] HX Bicarbonate, 14 (L) 22 - 29 [facility] P/S MMOL/L LABORATORIES - [facility] Glucose, S 58 (L) 70 - 140 [facility] MG/DL [facility] Anion Gap 20 (H) 7 - 15 [facility] Chloride, S 113 (H) 98 - 107 [facility] MMOL/L [facility] - [facility] Creatinine 9.6 (H) 0.6 - 1.1 [facility] MG/DL LABORATORIES - [facility] Specimen Anatomical Collection Method Collection Time Receive d Time (Source) Location / / Volume Laterality 06/02/2014 11:51 06/02/2014 PM CDT 11:51 PM CDT Comfort Herbert M.D. LAB BLOOD ADD-ON Performing Organization Address City/State/ZIP Code Phon e Number [facility] LABORATORIES - [address] [place], [place] [address] [facility] V&IRAD Vascular & Intervention (06/02/2014 10:09 PM CDT) Anatomical Region Laterality Modality N/A X-Ray Angiography Specimen (Source) Anatomical Collection Method Collection Time Re ceived Time Location / / Volume Laterality 06/02/2014 10:09 PM CDT Impressions 06/03/2014 5:28 PM CDT Status post placement of a percutaneous nephrostomy tube in the right renal allograft transplant as detailed. ?? PROCEDURE: Right renal allograft percuta neous nephrostomy tube placement. 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 TECHNIQUE/FINDINGS: The patient was brou ght to the Angiographic suite and was placed supine on the table. Initial ultrasound images of the right lower quadrant were obtained and the needle entry site wa s selected. The patient's right lower qu adrant was prepped and draped in a standard sterile fashion. 1% Lidocaine was injected to locally anesthetize the skin and underlying tissues. Subsequently, under ultrasonographic guidance, an AccuStick needle was advanced into the lower pole of the transplant kidney in the right lower quadrant. The Endostilet was removed and an 0.018 wire was advanced. The need le was exchanged with an AccuStick sheat h. The inner stilet and dilator were removed. Clear urine was noted. 10cc was aspirated and sent to the laboratory for further evaluation. A small amount of contr ast was injected confirming the proper p osition of the catheter. A Bentson wire was advanced and the track was dilated. Subsequently, a 10Fr pigtail loop catheter was advanced and the loop was formed within the collecting system. The tube was secured using a suture, which was attached to a bag. ?? The patient tolerated the procedure well . There were no immediate complications. ?? PREPROCEDURE: Patient seen, evaluated, h istory reviewed, and approved for sedation. Airway, heart, and lung exam satisfactory for sedation. Discussed risks, benefits, alternatives for procedure, and/or sedation, and obtained informed consent. Patient understands information and questions answered. Immediately prior to starting the procedure, in the presence of the assisting personnel, procedural pause was conducted to verify correct patient identity and verification of procedure to be performed, and as applicable, correct side and site, correct patient position, availability of implants, special equ ipment, or special requirements, and all image and specimen identification data. Moderate sedation was administered by sedation nurse under my supervision. The roles and responsibilities of care team members, residents, and fellows were discussed. ?? Sedation Time: ??30 minutes ?? Fluoro Time: 2 minutes Electronically signed by: ?? Alvaro Ward MD [id number] 03-Jun-2014 17:28 ?Fiona Palacios MD [id number] 03-Jun-2014 17:28 Narrative 06/03/2014 5:28 PM CDT 02-Jun-2014 22:09:00 ??Exam: V&IRAD Vascular & Intervention Indications: RENAL TX. PNTP ORIGINAL REPORT - 03-Jun-2014 17:28:00 V&IRAD Vascular & Intervention: V&IRAD Ultrasound Guidance: Procedure Note Alvaro Ward M.D. - 11/16/2017Format ting of this note might be different from the original. 02-Jun-2014 22:09:00 Exam: V&IRAD Vascul ar & Intervention Indications: RENAL TX. PNTP ORIGINAL REPORT - 03-Jun-2014 17:28:00 V&IRAD Vascular & Intervention: V&IRAD Ultrasound Guidance: IMPRESSION: Status post placement of a p ercutaneous nephrostomy tube in the right renal allograft transplant as detailed. PROCEDURE: Right renal allograft percuta neous nephrostomy tube placement. 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 TECHNIQUE/FINDINGS: The patient was brou ght to the Angiographic suite and was placed supine on the table. Initial ultrasound images of the right lower quadrant were obtained and the needle entry site was selected. The patient's right lower quadrant was prepp ed and draped in a standard sterile fashion. 1% Lidocaine was injected to locally anesthetize the skin and underlying tissues. Subsequently, under ultrasonographic guidance, an AccuStick needle was advanced into the l ower pole of the transplant kidney in the right lower quadrant. The Endostilet was removed and an 0.018 wire was advanced. The needle was exchanged with an AccuStick sheath. The inner stilet and dilator were removed. Clear u rine was noted. 10cc was aspirated and sent to the laboratory for further evaluation. A small amount of contrast was injected confirming the proper position of the catheter. A Bentson wire was advanced and the track was dilated. Subsequently, a 10Fr pigtail loop catheter was advanced and the loop was formed within the collecting system. The tube was secured using a suture, which was attached to a bag. The patient tolerated the procedure well . There were no immediate complications. PREPROCEDURE: Patient seen, evaluated, h istory reviewed, and approved for sedation. Airway, heart, and lung exam satisfactory for sedation. Discussed risks, benefits, alternatives for procedure, and/or sedation, and obtained informed consent. Patient u nderstands information and questions answered. Immediately prior to starting the procedure, in the presence of the assisting personnel, procedural pause was conducted to verify correct patient identity and veri fication of procedure to be performed, and as applicable, correct side and site, correct patient position, availability of implants, special equipment, or special requirements, and all image and specimen identification data. Moderate sedation was administered by sedation nurse under my supervision. The roles and responsibilities of care team members, residents, and fellows were discussed. Sedation Time: 30 minutes Fluoro Time: 2 minutes Electronically signed by: Alvaro Ward MD [id number] 03-Jun-2014 17:28 Fiona Palacios MD [id number] 03-Jun-2014 17:28 Bettina [facility] IR PROCEDURES V&IRAD Ultrasound Guidance (06/02/2014 10:09 PM CDT) Anatomical Region Laterality Modality Whole body N/A X-Ray Angiography Specimen (Source) Anatomical Collection Method Collection Time Re ceived Time Location / / Volume Laterality 06/02/2014 10:09 PM CDT Impressions 06/03/2014 5:28 PM CDT Status post placement of a percutaneous nephrostomy tube in the right renal allograft transplant as detailed. ?? PROCEDURE: Right renal allograft percuta neous nephrostomy tube placement. 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 TECHNIQUE/FINDINGS: The patient was brou ght to the Angiographic suite and was placed supine on the table. Initial ultrasound images of the right lower quadrant were obtained and the needle entry site wa s selected. The patient's right lower qu adrant was prepped and draped in a standard sterile fashion. 1% Lidocaine was injected to locally anesthetize the skin and underlying tissues. Subsequently, under ultrasonographic guidance, an AccuStick needle was advanced into the lower pole of the transplant kidney in the right lower quadrant. The Endostilet was removed and an 0.018 wire was advanced. The need le was exchanged with an AccuStick sheat h. The inner stilet and dilator were removed. Clear urine was noted. 10cc was aspirated and sent to the laboratory for further evaluation. A small amount of contr ast was injected confirming the proper p osition of the catheter. A Bentson wire was advanced and the track was dilated. Subsequently, a 10Fr pigtail loop catheter was advanced and the loop was formed within the collecting system. The tube was secured using a suture, which was attached to a bag. ?? The patient tolerated the procedure well . There were no immediate complications. ?? PREPROCEDURE: Patient seen, evaluated, h istory reviewed, and approved for sedation. Airway, heart, and lung exam satisfactory for sedation. Discussed risks, benefits, alternatives for procedure, and/or sedation, and obtained informed consent. Patient understands information and questions answered. Immediately prior to starting the procedure, in the presence of the assisting personnel, procedural pause was conducted to verify correct patient identity and verification of procedure to be performed, and as applicable, correct side and site, correct patient position, availability of implants, special equ ipment, or special requirements, and all image and specimen identification data. Moderate sedation was administered by sedation nurse under my supervision. The roles and responsibilities of care team members, residents, and fellows were discussed. ?? Sedation Time: ??30 minutes ?? Fluoro Time: 2 minutes Electronically signed by: ?? Alvaro Ward MD [id number] 03-Jun-2014 17:28 ?Fiona Palacios MD [id number] 03-Jun-2014 17:28 Narrative 06/03/2014 5:28 PM CDT 02-Jun-2014 22:09:00 ??Exam: V&IRAD Ultrasound Guidance Indications: RENAL TX. PNTP ORIGINAL REPORT - 03-Jun-2014 17:28:00 V&IRAD Vascular & Intervention: V&IRAD Ultrasound Guidance: Procedure Note Alvaro Ward M.D. - 11/16/2017Format ting of this note might be different from the original. 02-Jun-2014 22:09:00 Exam: V&IRAD Ultras ound Guidance Indications: RENAL TX. PNTP ORIGINAL REPORT - 03-Jun-2014 17:28:00 V&IRAD Vascular & Intervention: V&IRAD Ultrasound Guidance: IMPRESSION: Status post placement of a p ercutaneous nephrostomy tube in the right renal allograft transplant as detailed. PROCEDURE: Right renal allograft percuta neous nephrostomy tube placement. 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 TECHNIQUE/FINDINGS: The patient was brou ght to the Angiographic suite and was placed supine on the table. Initial ultrasound images of the right lower quadrant were obtained and the needle entry site was selected. The patient's right lower quadrant was prepp ed and draped in a standard sterile fashion. 1% Lidocaine was injected to locally anesthetize the skin and underlying tissues. Subsequently, under ultrasonographic guidance, an AccuStick needle was advanced into the l ower pole of the transplant kidney in the right lower quadrant. The Endostilet was removed and an 0.018 wire was advanced. The needle was exchanged with an AccuStick sheath. The inner stilet and dilator were removed. Clear u rine was noted. 10cc was aspirated and sent to the laboratory for further evaluation. A small amount of contrast was injected confirming the proper position of the catheter. A Bentson wire was advanced and the track was dilated. Subsequently, a 10Fr pigtail loop catheter was advanced and the loop was formed within the collecting system. The tube was secured using a suture, which was attached to a bag. The patient tolerated the procedure well . There were no immediate complications. PREPROCEDURE: Patient seen, evaluated, h istory reviewed, and approved for sedation. Airway, heart, and lung exam satisfactory for sedation. Discussed risks, benefits, alternatives for procedure, and/or sedation, and obtained informed consent. Patient u nderstands information and questions answered. Immediately prior to starting the procedure, in the presence of the assisting personnel, procedural pause was conducted to verify correct patient identity and veri fication of procedure to be performed, and as applicable, correct side and site, correct patient position, availability of implants, special equipment, or special requirements, and all image and specimen identification data. Moderate sedation was administered by sedation nurse under my supervision. The roles and responsibilities of care team members, residents, and fellows were discussed. Sedation Time: 30 minutes Fluoro Time: 2 minutes Electronically signed by: Alvaro Ward MD [id number] 03-Jun-2014 17:28 Fiona Palacios MD [id number] 03-Jun-2014 17:28 Bettina [facility] IR PROCEDURES Microbiology Reports (06/02/2014 9:44 PM CDT) Specimen Anatomical Collection Method Collection Time Receive d Time (Source) Location / / Volume Laterality 06/02/2014 9:44 PM 4 CDT 10:16 PM CDT [facility] - 06/16/2014 11:51 AM CDT 02-JUN-2014 KIDNEY, RIGHT URINE ?SoftOrd# [id number] ?(Ordered 02-JUN-2014; Collec rebecca 02-JUN-2014 21:44; Received 02-JUN-2014 22:11) ?[facility] ?Fungal Smear only performed ?GRAM STAIN ?(Reported 02-JUN-2014 23:09) FINAL ?No organisms seen. ?BACTERIAL CULTURE, AEROBIC + GAONA SC ? (Reported 07-JUN-2014 14:03) FINAL ?No growth after 5 days of in cubation. ?FUNGAL SMEAR ?(Reported 03-JUN-2014 08:36) FINAL ?Negative If a culture is dania ired, please contact Microbiology within 48 hours at Ext. [phone]. ?BACTERIAL CULTURE, ANAEROBIC + SUSC ? (Reported 16-JUN-2014 11:51) FINAL ?No growth after 14 days of i ncubation. Procedure Note 11/27/2017 02-JUN-2014 KIDNEY, RIGHT URINE SoftOrd # [id number] (Ordered 02-JUN-2014; Collected 2013 21:44; Received 02-JUN-2014 22:11) [facility] Fungal Smear only performed GRAM STAIN (Reported 02-JUN-2014 23:09 ) FINAL No organisms seen. BACTERIAL CULTURE, AEROBIC + SUSC (Rep orted 07-JUN-2014 14:03) FINAL No growth after 5 days of incubation. FUNGAL SMEAR (Reported 03-JUN-2014 08: 36) FINAL Negative If a culture is desired, jeff hope contact Microbiology within 48 hours at Ext. [phone]. BACTERIAL CULTURE, ANAEROBIC + SUSC (R eported 16-JUN-2014 11:51) FINAL No growth after 14 days of incubation. Bettina Puri M.D. LAB MICROBIOLOGY - GENERAL O RDERABLES Performing Organization Address City/State/ZIP Code Phon e Number [facility] - [address] [place], [place] [address] [facility] (ABNORMAL) ABG and Raymond, POCT (06/02/2014 8:31 PM CDT) P athologist Signature pCO2 38 35 - 45 MM [facility] HG LABORATORIES - [facility] Comment: ? ADDITIONAL INFORMATIO N ? Performed at the Point of Care ? pO2 45 (L) 70 - 100 MM HG [facility] Comment: ? ADDITIONAL INFORMATIO N ? Performed at the Point of Care ? Base Excess -17 (L) -2 - 2 MMOL/L [facility] Comment: ? ADDITIONAL INFORMATIO N ? Performed at the Point of Care ? HCO3 12 (L) 21 - 25 MMOL/L [facility] Comment: ? ADDITIONAL INFORMATIO N ? Performed at the Point of Care ? Calcium, Ionized, B 4.90 4.65 - 5.30 MG/DL [facility] Comment: ? ADDITIONAL INFORMATIO N ? Performed at the Point of Care ? pH 7.11 (L) 7.35 - 7.45 [facility] Comment: ? ADDITIONAL INFORMATIO N ? Performed at the Point of Care ? Arterial Sample Site Venstick [facility] Comment: ? ADDITIONAL INFORMATIO N ? Performed at the Point of Care ? pH 7.11 (L) 7.35 - 7.45 [facility] Comment: ? ADDITIONAL INFORMATIO N ? Performed at the Point of Care ? Sodium, B 140 135 - 145 MMOL/L [facility] Comment: ? ADDITIONAL INFORMATIO N ? Performed at the Point of Care ? Potassium, B 7.1 (>) 3.6 - 5.2 MMOL/L [facility] Comment: ? ADDITIONAL INFORMATIO N ? Performed at the Point of Care ? Glucose, POCT, B 82 70 - 140 MG/DL [facility] Comment: ? ADDITIONAL INFORMATIO N ? Performed at the Point of Care ? Hematocrit, POCT, B 31.0 (L) 34.9 - 44.5 % [facility] Comment: ? ADDITIONAL INFORMATIO N ? Performed at the Point of Care ? Specimen Anatomical Collection Method Collection Time Receive d Time (Source) Location / / Volume Laterality 06/02/2014 8:31 PM 4 8:31 CDT PM CDT Historical Provider LAB BLOOD NON ADD-ON Performing Organization Address City/[facility] Phon e Number [facility] - [address] [place], [place] [address] [facility] Microscopic Manual (06/02/2014 7:59 PM CDT) P athologist Signature Microscopy Normal [facility] Specimen Anatomical Collection Method Collection Time Receive d Time (Source) Location / / Volume Laterality 06/02/2014 7:59 PM 4 7:59 CDT PM CDT Nellie Rondon.A.-C. LAB URINE ORDERABLES Performing Organization Address City/[facility] Phon e Number [facility] - [address] [place], [place] [address] [facility] Gram Stain, Urine (06/02/2014 7:59 PM CDT) Patholo gist Method Time Signature Gram's Stain, Negative [facility] Screen, U [facility] Specimen Anatomical Collection Method Collection Time Receive d Time (Source) Location / / Volume Laterality 06/02/2014 7:59 PM 4 7:59 CDT PM CDT Nellie Rnodon.A.-C. LAB URINE ORDERABLES Performing Organization Address City/[facility]/ZIP Code Phon e Number [facility] - [address] [place] [phone] [facility] Eosinophils, Urine (06/02/2014 7:59 PM CDT) P athologist Signature Eosinophils, U . None % [facility] Comment: Test not performed. No white ce lls seen. Specimen Anatomical Collection Method Collection Time Receive d Time (Source) Location / / Volume Laterality 06/02/2014 7:59 PM 4 7:59 CDT PM CDT Nellie Kelly P.A.-C. LAB URINE ORDERABLES Performing Organization Address City/[facility]/ZIP Code Phon e Number [facility] - [address] [place] [address] [facility] Sodium, Random, Urine (06/02/2014 7:59 PM CDT) Patholo gist Method Time Signature Sodium, 37 Interpret [facility] Random, U with other; LABORATORIES - [facility]. MMOL/L CAMPUS Specimen Anatomical Collection Method Collection Time Receive d Time (Source) Location / / Volume Laterality 06/02/2014 7:59 PM 4 7:59 CDT PM CDT Nellie Kelly P.A.-C. LAB URINE ORDERABLES Performing Organization Address City/[facility]/ZIP Code Phon e Number [facility] - [address] [place] [phone] [facility] (ABNORMAL) Urinalysis with Microscopic (06/02/2014 7:59 PM CDT) Analysis Performed At Patho logist Time Signature pH, 24 HR, U 6.2 4.5 - 8.0 [facility] Appearance Normal Normal [facility] Glucose <2 0 - 15 [facility] MG/DL [facility] Protein, U 12 <22 MG/DL [facility] Comment: ? ADDITIONAL INFORMATIO N ? On 03/02/2014 the total protein assay me thod changed resulting ? in approximately a 20% increase in prote in values. ? Protein/Osmolality 0.64 (H) <0.27 RATIO [facility] Comment: ? ADDITIONAL INFORMATIO N ? On 03/02/2014 the total protein assay me steve changed resulting ? in approximately a 20% increase in prote in values. ? Predicted 24 Hr Protein 447 MG/24 H [facility] LINIC [facility] Predicted Range 110-1810 MG/24 H [facility] Hemoglobin, QL Negative Negative [facility] Source Midstream [facility]ORATO [facility] Osmolality, 24 HR, U 187 150 - 1150 MOSM/KG [facility] Specimen Anatomical Collection Method Collection Time Receive d Time (Source) Location / / Volume Laterality 06/02/2014 7:59 PM 4 7:59 CDT PM CDT Nellie Kelly P.A.-C. LAB URINE ORDERABLES Performing Organization Address City/State/ZIP Code Phon e Number [facility] - [address] [place], [place] [address] [facility] Creatinine, Random, Urine (06/02/2014 7:59 PM CDT) [facility] gist Method Time Signature Creatinine, 34 Used to [facility] Random, U normalize LABORATORIES - other; [facility]. MG/DL CAMPUS Specimen Anatomical Collection Method Collection Time Receive d Time (Source) Location / / Volume Laterality 06/02/2014 7:59 PM 4 7:59 CDT PM CDT Nellie Kelly P.A.-C. LAB URINE ORDERABLES Performing Organization Address City/State/ZIP Code Phon e Number [facility] - [address] [place], [place] [address] [facility] Microbiology Reports (06/02/2014 7:32 PM CDT) Specimen Anatomical Collection Method Collection Time Receive d Time (Source) Location / / Volume Laterality 06/02/2014 7:32 PM 4 7:33 CDT PM CDT Narrative [facility] - [facility] - 06/07/2014 11:30 PM CDT 02-JUN-2014 BLOOD, ? SoftOrd# [id number] ?(Ordered 02-JUN-2014; Collec rebecca 02-JUN-2014 19:32; Received 02-JUN-2014 20:02) ?[facility] ?Received Bactec Peds bottle ?BACTERIA/MARCELA CULTURE, BLOOD ? (Reported 07-JUN-2014 23:30) FINAL ?No growth after 5 days of in cubation. Procedure Note 11/27/2017 02-JUN-2014 BLOOD, SoftOrd# [id number] (Ordered 02-JUN-2014; Collected 2013 19:32; Received 02-JUN-2014 20:02) [facility] Received Bactec Peds bottle BACTERIA/MARCELA CULTURE, BLOOD (Repor rebecca 07-JUN-2014 23:30) FINAL No growth after 5 days of incubation. Nellie Kelly P.A.-C. LAB MICROBIOLOGY - GENERAL O RDERABLES Performing Organization Address City/[facility]/ZIP Code Phon e Number [facility] - [address] [place] [phone] [facility] (ABNORMAL) Potassium (06/02/2014 7:32 PM CDT) Analysis Performed At Patho logist Time Signature Potassium, S 7.1 (>) 3.6 - 5.2 [facility] MMOL/L [facility] Specimen Anatomical Collection Method Collection Time Receive d Time (Source) Location / / Volume Laterality 06/02/2014 7:32 PM 4 7:32 CDT PM CDT Nellie Kelly P.A.-C. LAB BLOOD ADD-ON Performing Organization Address City/[facility] Phon e Number [facility] - [address] [place] [address] [facility] (ABNORMAL) Blood Gas with Coox, Arterial (06/02/2014 7:32 PM CDT) Patholo gist Method Time Signature Spont. 22 [facility] breaths/min [facility] pO2 94 80 - 100 [facility] MM HG [facility] Base Excess -17 (L) -2 - 2 [facility] MMOL/L [facility] HCO3 10 (L) 22 - 26 [facility] MMOL/L [facility] COHb 2.1 <3.0 % [facility] MetHb 1.0 <1.6 % [facility] Arterial R-Radial [facility] Sample Site [facility] FIO2 0.21 .21=AIR [facility] pCO2 33 (L) 35 - 45 [facility] MM HG [facility] pH 7.13 (L) 7.35 - [facility] 7.45 PH [facility] Hb 10.8 (L) 12.0 - [facility] 15.5 G/DL [facility] O2Hb 93.1 (L) 94.0 - [facility] 98.0 % [facility] CtO2 14.3 (L) 21.0 - [facility] 23.0 VOL LABORATORIES - % [facility] Specimen Anatomical Collection Method Collection Time Receive d Time (Source) Location / / Volume Laterality 06/02/2014 7:32 PM 4 7:32 CDT PM CDT Nellie Kelly P.A.-C. LAB BLOOD NON ADD-ON Performing Organization Address City/State/ZIP Code Phon e Number [facility] - [address] [place], [place] [address] [facility] ECG 12 Lead (06/02/2014 6:44 PM CDT) Specimen (Source) Anatomical Collection Method Collection Time Re ceived Time Location / / Volume Laterality 06/02/2014 6:44 PM CDT [facility] RADIOLOGY SYSTEM - 06/02/2014 6:57 PM CDT 02Jun2014 18:44 VENTRICULAR RATE 61 Poor data quality Normal sinus rhythm Low voltage QRS Low anterior forces No previous ECGs available [id number]^KELLIE ??^ALLA Procedure Note Alla Schmitt M.D. - 11/09/2017Format ting of this note might be different from the original. 02Jun2014 18:44 VENTRICULAR RATE 61 Poor data quality Normal sinus rhythm Low voltage QRS Low anterior forces No previous ECGs available [id number]^KELLIE FRAGOSO^ALLA Nellie Mcdonough-C. ECG ORDERABLES Performing Organization Address City/State/ZIP Code Phon e Number [facility] RADIOLOGY SYSTEM [address] [place] [id number], [facility] Interpretation of Outside CT Abdomen and or Pelvis (06/02/2014 6:14 PM CDT) Anatomical Region Laterality Modality Abdomen, Pelvis N/A Computed Tomography Specimen (Source) Anatomical Collection Method Collection Time Re ceived Time Location / / Volume Laterality 06/02/2014 6:14 PM CDT Impressions 06/02/2014 7:24 PM CDT ??Renal transplant UPJ obstruction with hydronephrosis. Tiny calcification in the vicinity of the distal ureter is atypical for an obstructing stone given the lack of hydroureter. Comparison with prior imaging or further evaluation with ultr asound may be helpful. FINDINGS: ?? Right lower quadrant renal transplant demonstrates hydronephrosis and edema. The hydronephrosis rapidly tapers at the UPJ without an obvious obstructing stone here. 1-2 mm calcification in the vicinity of the more distal ureter ( series 5, image 67; series 2, image 112) could represent an obstructing stone. Atrophic enterprise kidneys. Small free fluid. Large fat-containing midline ventral abd ominal hernia with a knuckle of transver se colon. Diffuse mural fatty infiltration of the cecum and descending colon. Calcific aortoiliac atherosclerosis. Remainder unremarkable as limited by IV contrast administration. Electronically signed by: ?? Alvaro Carpenter MD [id number] 02-Jun-2014 19:24 Narrative 06/02/2014 7:24 PM CDT 02-Jun-2014 18:14:00 ??Exam: Interp of OS CT Abd and or Pel Indications: acute renal failure ORIGINAL REPORT - 02-Jun-2014 19:24:00 EXAM: ??Interp of OS CT Abd and or Pel 1 COMPARISON: ??None Procedure Note Daniel Carpenter M.D. - 11/16/2017For matting of this note might be different from the original. 02-Jun-2014 18:14:00 Exam: Interp of OS CT Abd and or Pel Indications: acute renal failure ORIGINAL REPORT - 02-Jun-2014 19:24:00 EXAM: Interp of OS CT Abd and or Pel COMPARISON: None IMPRESSION: Renal transplant UPJ obstruc tion with hydronephrosis. Tiny calcification in the vicinity of the distal ureter is atypical for an obstructing stone given the lack of hydroureter. Comparison with prior imaging or further evaluation with ultra sound may be helpful. FINDINGS: Right lower quadrant renal tra nsplant demonstrates hydronephrosis and edema. The hydronephrosis rapidly tapers at the UPJ without an obvious obstructing stone here. 1-2 mm calcification in the vicinity of the more distal ureter (seri es 5, image 67; series 2, image 112) could represent an obstructing stone. Atrophic enterprise kidneys. Small free fluid. Large fat-containing midline ventral abdominal hernia with a knuckle of transverse colon. Diffuse mur al fatty infiltration of the cecum and descending colon. Calcific aortoiliac atherosclerosis. Remainder unremarkable as limited by IV contrast administration. Electronically signed by: Alvaro Carpenter MD [id number] 02-Jun-2014 19:24 Nellie Kelly P.A.-C. IMG CT PROCEDURES Microbiology Reports (06/02/2014 6:03 PM CDT) Specimen Anatomical Collection Method Collection Time Receive d Time (Source) Location / / Volume Laterality 06/02/2014 6:03 PM 4 6:04 CDT PM CDT Narrative [facility] - 06/07/2014 6:31 PM CDT 02-JUN-2014 BLOOD, ? SoftOrd# [id number] ?(Ordered 02-JUN-2014; Collec rebecca 02-JUN-2014 18:03; Received 02-JUN-2014 18:24) ?[facility] ?Received Bactec Peds bottle ?BACTERIA/MARCELA CULTURE, BLOOD ? (Reported 07-JUN-2014 18:31) FINAL ?No growth after 5 days of in cubation. Procedure Note 11/27/2017 02-JUN-2014 BLOOD, SoftOrd# [id number] (Ordered 02-JUN-2014; Collected 2013 18:03; Received 02-JUN-2014 18:24) [facility] Received Bactec Peds bottle BACTERIA/MARCELA CULTURE, BLOOD (Repor rebecca 07-JUN-2014 18:31) FINAL No growth after 5 days of incubation. Nellie Kelly P.A.-C. LAB MICROBIOLOGY - GENERAL O RDERABLES Performing Organization Address City/State/ZIP Code Phon e Number [facility] - [address] [place], [place] [address] [facility] APTT (Activated Partial Thromboplastin Time) (06/02/2014 6:03 PM CDT) P athologist Signature APTT, P 35 28 - 38 SEC [facility] Specimen Anatomical Collection Method Collection Time Receive d Time (Source) Location / / Volume Laterality 06/02/2014 6:03 PM 4 6:03 CDT PM CDT Nellie Kelly P.A.-C. LAB BLOOD ADD-ON Performing Organization Address City/[facility] Code Phon e Number [facility] - [address] [place] [address] [facility] (ABNORMAL) BMP (Basic Metabolic Panel) (06/02/2014 6:03 PM CDT) [facility] Method Time Signature BUN (Blood 85 (H) 6 - 21 [facility] Urea MG/DL LABORATORIES - Nitrogen), S [facility] HX 12 (L) 22 - 29 [facility] Bicarbonate, MMOL/L LABORATORIES - P/S [facility] Creatinine 10.6 (>) 0.6 - 1.1 [facility] MG/DL LABORATORIES - [facility] eGFR 4 (L) >60 [facility] Non-Black/Afri ML/MIN/BS LABORATORIES - can Slovenian A [facility] Sodium, P 137 135 - 145 [facility] MMOL/L LABORATORIES - [facility] Chloride, S 108 (H) 98 - 107 [facility] MMOL/L LABORATORIES - [facility] Glucose, S 93 70 - 140 [facility] MG/DL LABORATORIES - [facility] Anion Gap 17 (H) 7 - 15 [facility] LABORATORIES - [facility] eGFR-Black/Afr 5 (L) >60 [facility] ican Slovenian ML/MIN/BS LABORATORIES - A [facility] Potassium, P 6.5 (>) 3.6 - 5.2 [facility] MMOL/L LABORATORIES - [facility] Specimen Anatomical Collection Method Collection Time Receive d Time (Source) Location / / Volume Laterality 06/02/2014 6:03 PM 4 6:03 CDT PM CDT Nellie Kelly P.A.-C. LAB BLOOD ADD-ON Performing Organization Address City/State/ZIP Code Phon e Number [facility] - [address] [place] [address] [facility] PT (Prothrombin Time) with INR (06/02/2014 6:03 PM CDT) [facility] Method Time Signature Prothrombin 11.8 9.5 - 13.8 [facility] Time, P SEC LABORATORIES - [facility] INR 1.0 0.8 - 1.2 [facility] LABORATORIES - [facility] Specimen Anatomical Collection Method Collection Time Receive d Time (Source) Location / / Volume Laterality 06/02/2014 6:03 PM 4 6:03 CDT PM CDT Nellie Randon Sharonda-C. LAB BLOOD ADD-ON Performing Organization Address City/[facility]/ZIP Code Phon e Number [facility] - [address] [place], [place] [address] [facility] (ABNORMAL) Calcium, Total (06/02/2014 6:03 PM CDT) Patholo gist Method Time Signature Calcium, 8.8 (L) 8.9 - 10.1 [facility] Total, S MG/DL LABORATORIES - [facility] Specimen Anatomical Collection Method Collection Time Receive d Time (Source) Location / / Volume Laterality 06/02/2014 6:03 PM 4 6:03 CDT PM CDT Nellie Randon Sharonda-C. LAB BLOOD ADD-ON Performing Organization Address City/[facility]/ZIP [facility] Phon e Number [facility] - [address] [address] [facility] AST (Aspartate Aminotransferase) (06/02/2014 6:03 PM CDT) P athologist Signature AST, Total, S 12 8 - 43 U/L [facility] Specimen Anatomical Collection Method Collection Time Receive d Time (Source) Location / / Volume Laterality 06/02/2014 6:03 PM 4 6:03 CDT PM CDT Nellie Randon Sharonda-C. LAB BLOOD ADD-ON Performing Organization Address City/[facility]/ZIP Code Phon e Number [facility] - [address] [address] [facility] ALT (Alanine Aminotransferase) (06/02/2014 6:03 PM CDT) Patholo gist Method Time Signature Alanine 11 7 - 45 [facility] Aminotransferase U/L LABORATORIES - (ALT), S [facility] Specimen Anatomical Collection Method Collection Time Receive d Time (Source) Location / / Volume Laterality 06/02/2014 6:03 PM 4 6:03 CDT PM CDT Paptiti Randon PJacy-C. LAB BLOOD ADD-ON Performing Organization Address City/[facility]/ZIP Code Phon e Number [facility] - [address] [place], [place] [address] [facility] Bilirubin, Direct (06/02/2014 6:03 PM CDT) athologist Signature Bilirubin, <0.1 0.0 - 0.3 [facility] Direct, S MG/DL [facility] Specimen Anatomical Collection Method Collection Time Receive d Time (Source) Location / / Volume Laterality 06/02/2014 6:03 PM 4 6:03 CDT PM CDT Papya R Wriston P.A.-C. LAB BLOOD ADD-ON Performing Organization Address City/[facility]/ZIP Code Phon e Number [facility] - [address] [address] [facility] (ABNORMAL) Magnesium (06/02/2014 6:03 PM CDT) Analysis Performed At Patho logist Time Signature Magnesium, S 2.5 (H) 1.7 - 2.3 [facility] MG/DL [facility] Specimen Anatomical Collection Method Collection Time Receive d Time (Source) Location / / Volume Laterality 06/02/2014 6:03 PM 4 6:03 CDT PM CDT Papya R Giorgion P.A.-C. LAB BLOOD ADD-ON Performing Organization Address City/[facility]/ZIP Code Phon e Number [facility] - [address] [address] [facility] Lactate (06/02/2014 6:03 PM CDT) athologist Signature Lactate, P 0.6 0.6 - 2.3 [facility] MMOL/L [facility] Specimen Anatomical Collection Method Collection Time Receive d Time (Source) Location / / Volume Laterality 06/02/2014 6:03 PM 4 6:03 CDT PM CDT Papya R Wriston P.A.-C. LAB BLOOD NON ADD-ON Performing Organization Address City/State/ZIP Code Phon e Number [facility] - [address] [place], [place] [address] [facility] CK (Creatine Kinase) (06/02/2014 6:03 PM CDT) athologist Signature Creatine 113 38 - 176 [facility] Kinase (CK), S U/L LABORATORIES - [facility] Specimen Anatomical Collection Method Collection Time Receive d Time (Source) Location / / Volume Laterality 06/02/2014 6:03 PM 4 6:03 CDT PM CDT Nellie Kelly P.A.-C. LAB BLOOD ADD-ON Performing Organization Address City/State/ZIP Code Phon e Number [facility] - [address] [address] [facility] Sirolimus Level (06/02/2014 6:03 PM CDT) P athologist Signature Sirolimus, B 5.7 4.0 - 20.0 [facility] (Trough) LABORATORIES - NG/ML [facility] Sirolimus Date . [facility] of Last Dose LABORATORIES - [facility] Comment: Not Specified Sirolimus Time of Dose . [facility] LABORATORIES - [facility] Comment: Not Specified Dose, mg . MG [facility] LABORATO [facility] Comment: Not Specified Specimen Anatomical Collection Method Collection Time Receive d Time (Source) Location / / Volume Laterality 06/02/2014 6:03 PM 4 6:03 CDT PM CDT Nellie Kelly P.A.-C. LAB BLOOD NON ADD-ON Performing Organization Address City/State/ZIP Code Phon e Number [facility] - [address] [address] [facility] (ABNORMAL) Phosphorus Inorganic (06/02/2014 6:03 PM CDT) Patholo gist Method Time Signature Phosphorus 8.9 (H) 2.5 - 4.5 [facility] (Inorganic), S MG/DL LABORATORIES - [facility] Specimen Anatomical Collection Method Collection Time Receive d Time (Source) Location / / Volume Laterality 06/02/2014 6:03 PM 4 6:03 CDT PM CDT Nellie Randon P.A.-C. LAB BLOOD ADD-ON Performing Organization Address City/State/ZIP Code Phon e Number [facility]IES - [address] [place], [place] [address] [facility] (ABNORMAL) Mycophenolic Acid (06/02/2014 6:03 PM CDT) Patholo gist Method Time Signature Mycophenolic 0.6 (L) 1.0 - 3.5 [facility] Acid MCG/ML [facility] MPA Glucuronide 150 (H) 35 - 100 [facility] MCG/ML [facility] Specimen Anatomical Collection Method Collection Time Receive d Time (Source) Location / / Volume Laterality 06/02/2014 6:03 PM 4 6:03 CDT PM CDT Paptiti R Robin ThompsonA.-C. LAB BLOOD NON ADD-ON Performing Organization Address City/State/ZIP Code Phon e Number [facility]IES - [address] [place], [place] [address] [facility] Albumin (06/02/2014 6:03 PM CDT) athologist Signature Albumin, S 3.5 3.5 - 5.0 [facility] G/DL [facility] Specimen Anatomical Collection Method Collection Time Receive d Time (Source) Location / / Volume Laterality 06/02/2014 6:03 PM 4 6:03 CDT PM CDT Paptiti R Giorgion P.A.-C. LAB BLOOD ADD-ON Performing Organization Address City/State/ZIP Code Phon e Number [facility]IES - [address] [address] [facility] Hemoglobin A1c (06/02/2014 6:03 PM CDT) Analysis Performed At Patho logist Time Signature Hemoglobin A1c, 5.7 4.0 - 6.0 [facility] B % [facility] Specimen Anatomical Collection Method Collection Time Receive d Time (Source) Location / / Volume Laterality 06/02/2014 6:03 PM 4 6:03 CDT PM CDT Papya R Wriston P.A.-C. LAB BLOOD ADD-ON Performing Organization Address City/State/ZIP Code Phon e Number [facility] LAB[facility]IES - [address] [place] [address] [facility] Bilirubin, Total (06/02/2014 6:03 PM CDT) athologist Signature Bilirubin, 0.1 0.1 - 1.0 [facility] Total, S MG/DL [facility] Specimen Anatomical Collection Method Collection Time Receive d Time (Source) Location / / Volume Laterality 06/02/2014 6:03 PM 4 6:03 CDT PM CDT Nellie Kelly P.A.-C. LAB BLOOD ADD-ON Performing Organization Address City/State/ZIP Code Phon e Number [facility]IES - [address] [place] [address] [facility] (ABNORMAL) CBC without Differential (06/02/2014 6:03 PM CDT) [facility] gist Method Time Signature Hemoglobin 10.9 (L) 12.0 - [facility] 15.5 G/DL LABORATORIES - [facility] Hematocrit 33.5 (L) 34.9 - [facility] 44.5 % LABORATORIES [facility] RBC Distrib 16.9 (H) 11.9 - [facility] Width 15.5 % [facility] Platelet Count 176 150 - 450 [facility] X10(9)/L LABORATORIES [facility] Erythrocytes 3.97 3.90 - [facility] 5.03 LABORATORIES - X10(12)/L [facility] MCV 84.4 81.6 - [facility] 98.3 [place] LABORATORIES [facility] Leukocytes 8.2 3.5 - [facility] 10.5 LABORATORIES - X10(9)/L [facility] Specimen Anatomical Collection Method Collection Time Receive d Time (Source) Location / / Volume Laterality 06/02/2014 6:03 PM 4 6:03 CDT PM CDT Nellie Kelly P.A.-C. LAB BLOOD ADD-ON Performing Organization Address City/State/ZIP Code Phon e Number [facility] LABORATORIES - [address] [place], [place] [address] [facility] documented in this encounter Visit Diagnoses Not on filedocumented in this encounter
--- OUTSIDE RECORDS SUMMARY | 2022-05-25 13:33 | XMS_ITS ---
:1960 Author Organization [facility] Address [address] [place] [address] Care Team Providers Name Role Phone Elsewhere, Pcp Primary Care Provider Unavailable Transplant [facility] ([place] Received: Left KidneyTransplanted on 04/06/2022Marked as Active Follow-up on 04/06/2022 Kidney CoordinatorTXP POST KIDNEY NURSE TEAM 3 ROCHPhone: N/AFax: N/AEmail: N/A Retransplant Diagnosis Organ Primary Contributory Kidney Retransplant/Graft Failure Kidney Infection History Noted Survival Infection Treatment Organism Resolved 09/16/2019 Infection Urinary Tract Recurrent Donor Information Organ ABO Source Meets Risk Criteria HLA Match Mismatches Cross Match Left Kidney O DCD No A: Transplanted B: DR: Left Kidney Donor Serology Results Anti-HBcAb HBsAg HBsAb HBV DNA Anti-HCV HAV HBC Total: HBsAg: Negative HBsAb: Not Done No results HCV: Negative N o results Negative on file on file Anti-HIV I/II Anti-HTLV I/II Coccidioides Anti-CMV Quantiferon TB EBV Total HIV-1: Negative HTLV: Not Done No results on CMV IgG: No results on No results HIV Ag/Ab Combo file Negative file on file Assay: Not Done EBV IgG EBV IgM EBNA Measles Mumps Rubella EBV VCA IgG: EBV VCA IgM: EBNA IgG: Not No results No results on No r esults Positive Negative Done on file file on file Varicella Zoster HSV 1 HSV 2 Toxoplasma Cryptococcus Ag Histoplasma No results on No results on No results on Toxoplasma No results on No results file file file IgG: file on file Positive Strongyloides Schistosoma Trypanosoma RPR/VDRL Syphilis RSV No results on No results on cruzi RPR: No results on No results file file No results on Negative file on file file SARS CoV-2 HBV GEOVANNA HCV GEOVANNA No results on file HBV GEOVANNA: Negative HCV GEOVANNA: Negative Care Team Name Role Phone Fax Email TXP POST KIDNEY NURSE Kidney Coordinator N/A N/A N/A TEAM 3 ASMITA Cantrell, Transplant User Interface Developer [phone] Low Duval [email or web address] Steve Martínez Referring Provider [phone] [email or web address] Shaun Head M.D., Transplant Surgeon [phone] [email or web address] Post-Transplant Pre-Transplant Admitted: 04/06/2022 Referred: 07/02/2017 Transplanted: 04/06/2022 Evaluation began: 09/11/2017 Discharged: 04/09/2022 Committee: 09/26/2017 UNOS qualified: 06/15/2017 Center waitlisted: 10/03/2017 Dialysis History Dialysis History Start End Type Comments Center 12/17/2020 12/17/2020 In-center Hemodialysis [facility] 05/05/2019 05/05/2019 In-center Hemodialysis [facility] 04/15/2019 04/15/2019 In-center Hemodialysis [facility] 02/11/2019 02/11/2019 In-center Hemodialysis [facility] 06/15/2017 04/06/2022 Hemo [facility] D[facility] Information Center Phone Fax Address [facility] [phone] [facility] [phone] [facility] [phone] 20 04 [facility] [phone]
--- OUTSIDE RECORDS SUMMARY | 2022-05-25 13:33 | XMS_ITS ---
:1960 Author Organization [facility] Address [address] [place] [address] Care Team Providers Name Role Phone Elsewhere, Pcp Primary Care Provider Unavailable Transplant Episode [facility] RecipientExternal ([facility] - ExternalTransplanted on 04/28/2008Marked as Not Followed on 06/15/2017Reason: Graft Failure/Relisted Kidney CoordinatorTXP POST KIDNEY NURSE TEAM 3 ROCHPhone: N/AFax: N/AEmail: N/A Transplanted Elsewhere: [facility] ([place], [place]) - [facility] Coordinator:Phone:Fax: Infection History Noted Survival Infection Treatment Organism Resolved 11/26/2020 12 years 7 months COVID-19 Infection 09/16/2019 11 years 4 months Infection Urinary Tract Recurrent Care Team Name Role Phone Fax Email TXP POST KIDNEY NURSE Kidney Coordinator N/A N/A N/A TEAM 3 ASMITA Martínez Jr., Referring Provider [phone] [email or web address] Post-Transplant Pre-Transplant Transplanted: 04/28/2008 Dialysis History Dialysis History Start End Type Comments Center 12/17/2020 12/17/2020 In-center Hemodialysis [facility] 05/05/2019 05/05/2019 In-center Hemodialysis [facility] 04/15/2019 04/15/2019 In-center Hemodialysis [facility] 02/11/2019 02/11/2019 In-center Hemodialysis [facility] 06/15/2017 04/06/2022 [facility] [facility] Information Center Phone Fax Address [facility] JOSTIN GUERRERO [phone] [facility] [phone] [facility] [phone] 20 04 PRIYANKA ZAPATA [facility] [phone]
--- OUTSIDE RECORDS SUMMARY | 2022-05-25 13:33 | XMS_ITS ---
:1960 Author Organization [facility] Address [address] [place] [address] Care Team Providers Name Role Phone Elsewhere, Pcp Primary Care Provider Unavailable Trans[facility] [place]Marked as Ineligible on 12/11/2016 Kidney CoordinatorCoordinator Transplant, R.N.Phone: N/AFax: N/AEmail: N/A Scores Score Value Updated Exceptions/Reaso ns CPRA Not available EPTS (Calc) 63 05/25/2022 Care Team Name Role Phone Fax Email Coordinator Transplant, Kidney Coordinator N/A N/A N/A R.N. Steve Martínez Jr., Referring Provider [phone] [email or web address] Pre-Transplant Referred: 11/03/2016 Dialysis History Dialysis History Start End Type Comments Center 12/17/2020 12/17/2020 In-center Hemodialysis [facility] 05/05/2019 05/05/2019 In-center Hemodialysis [facility] 04/15/2019 04/15/2019 In-center Hemodialysis [facility] 02/11/2019 02/11/2019 In-center Hemodialysis [facility] 06/15/2017 [facility] Information Center Phone Fax Address [facility] D[facility] [phone] [address] [facility] [phone] [facility] [phone] 20 04 PRIYANKA ZAPATA [facility] [phone]
--- OUTSIDE RECORDS SUMMARY | 2022-05-25 13:34 | XMS_ITS ---
:1960 Author Care Team Providers Name Role Phone oRxanne Castillo Primary Care Provider Unavailable Allergies None recorded. Medications Name Status Start Date Stop Date ? ? acyclovir 5 % topical ointment Active ? N ot available Bystolic 10 mg tablet Active ? Not availa ble ciprofloxacin 500 mg tablet Active ? Not available mycophenolate mofetil 250 mg capsule Active ? Not available warfarin 2.5 mg tablet Active ? Not avail able Problems None recorded. Procedures None recorded. Results Lab Results None recorded. Past Encounters None recorded. Social History None recorded. Vaccine List None recorded. Plan of Care Reminders Provider Appointments None recorded. ? ? Lab None recorded. ? ? Referral None recorded. ? ? Procedures None recorded. ? ? Surgeries None recorded. ? ? Imaging None recorded. ? ? Vitals None recorded.
== END 2022-05-25 14:03 | disposition home or self-care (01) ==
PROVIDERS: Emergency Provider Emergency Medicine Emergency Medical Services; PCP Physician Assistant Medical
DX: R60.0 Localized edema (principal); Z94.0 Kidney transplant status
CPT/HCPCS: 93971; 99284; 99285

== ENCOUNTER 2022-06-05 14:11 | Outpatient (RCR) | payer MEDICARE, MEDICAID, SELFPAY ==
[2022-05-08 16:15] LABS: Basophils Absolute Auto 0.04 K/uL (0.00-0.30); Basophils Percent Auto 0.5 % (0.0-3.0); Eosinophils Absolute Auto 0.03 K/uL (0.00-0.50); Eosinophils Percent Auto 0.4 % (0.0-7.0); Hematocrit 32.2 % (33.0-51.0); Immature Granulocytes Abs Auto 0.21 K/uL (0.00-0.30); Lymphocytes Percent Auto 14.5 % (20-44); Mean Corpuscular HGB Conc 31 gm/dL (32-36); Mean Corpuscular Hemoglobin 30 pg (26-34); Mean Corpuscular Volume 97 fL (80-100); Monocytes Percent Auto 10.6 % (0.0-11.0); Neutrophils Absolute Auto 6.04 K/uL (1.7-7.0); Neutrophils Percent Auto 71.5 % (42.0-72.0); Platelet Count* 170 K/uL (140-440); Potassium* 3.4 mmol/L (3.6-5.1); RDW Coefficient of Variation % 16.5 % (11.5-15.5); Red Blood Count 3.33 m/uL (4.00-5.20); White Blood Count* 8.43 K/uL (4.50-11.00)
[2022-05-08 16:18] LABS: Estimated Glomerular Filt Rate 28 ml/min; Glucose* 226 mg/dL (60-115); Magnesium* 1.8 mg/dL (1.5-2.6); Phosphorus* 2.8 mg/dL (2.5-4.5)
[2022-05-08 16:41] LABS: Slide Review Reflex No
[2022-05-10 22:29] LABS: Tacrolimus by HPLC-MS/MS 8.1 ng/mL
[2022-05-22 15:46] LABS: Creatinine* 2.1 mg/dL (0.5-1.5); Estimated Glomerular Filt Rate 26 ml/min; Glucose* 124 mg/dL (60-115); Phosphorus* 3.5 mg/dL (2.5-4.5)
[2022-05-23 07:44] LABS: Basophils Absolute Auto 0.05 K/uL (0.00-0.30); Basophils Percent Auto 0.8 % (0.0-3.0); Eosinophils Percent Auto 1.7 % (0.0-7.0); Hematocrit 33.4 % (33.0-51.0); Hemoglobin* 10.2 gm/dL (12.0-16.0); Immature Granulocytes Abs Auto 0.04 K/uL (0.00-0.30); Lymphocytes Absolute Auto 1.45 K/uL (0.90-2.90); Lymphocytes Percent Auto 24.1 % (20-44); Mean Corpuscular HGB Conc 31 gm/dL (32-36); Mean Corpuscular Hemoglobin 30 pg (26-34); Mean Corpuscular Volume 99 fL (80-100); Monocytes Percent Auto 8.2 % (0.0-11.0); Neutrophils Absolute Auto 3.88 K/uL (1.7-7.0); Neutrophils Percent Auto 64.5 % (42.0-72.0); Platelet Count* 135 K/uL (140-440); RDW Coefficient of Variation % 15.8 % (11.5-15.5); Red Blood Count 3.37 m/uL (4.00-5.20); White Blood Count* 6.01 K/uL (4.50-11.00)
[2022-05-23 07:54] LABS: Slide Review Reflex No
[2022-05-24 22:26] LABS: Tacrolimus by HPLC-MS/MS 10.6 ng/mL
[2022-05-29 14:09] LABS: Basophils Absolute Auto 0.04 K/uL (0.00-0.30); Basophils Percent Auto 0.6 % (0.0-3.0); Eosinophils Absolute Auto 0.14 K/uL (0.00-0.50); Eosinophils Percent Auto 2.1 % (0.0-7.0); Hematocrit 34.1 % (33.0-51.0); Hemoglobin* 10.6 gm/dL (12.0-16.0); Immature Granulocytes Abs Auto 0.02 K/uL (0.00-0.30); Lymphocytes Absolute Auto 1.69 K/uL (0.90-2.90); Lymphocytes Percent Auto 25.9 % (20-44); Mean Corpuscular HGB Conc 31 gm/dL (32-36); Mean Corpuscular Hemoglobin 30 pg (26-34); Mean Corpuscular Volume 96 fL (80-100); Monocytes Percent Auto 10.1 % (0.0-11.0); Neutrophils Absolute Auto 3.98 K/uL (1.7-7.0); Platelet Count* 162 K/uL (140-440); RDW Coefficient of Variation % 15.2 % (11.5-15.5); Red Blood Count 3.55 m/uL (4.00-5.20); White Blood Count* 6.53 K/uL (4.50-11.00)
[2022-05-29 14:10] LABS: Slide Review Reflex No
[2022-05-29 14:12] LABS: Potassium* 3.5 mmol/L (3.6-5.1)
[2022-05-29 14:15] LABS: Creatinine* 2.7 mg/dL (0.5-1.5); Estimated Glomerular Filt Rate 19 ml/min; Glucose* 127 mg/dL (60-115); Magnesium* 1.7 mg/dL (1.5-2.6)
[2022-06-05 15:23] LABS: Basophils Absolute Auto 0.05 K/uL (0.00-0.30); Eosinophils Absolute Auto 0.15 K/uL (0.00-0.50); Eosinophils Percent Auto 3.1 % (0.0-7.0); Hemoglobin* 10.9 gm/dL (12.0-16.0); Immature Granulocytes Abs Auto 0.01 K/uL (0.00-0.30); Lymphocytes Absolute Auto 1.32 K/uL (0.90-2.90); Lymphocytes Percent Auto 27.2 % (20-44); Mean Corpuscular HGB Conc 31 gm/dL (32-36); Mean Corpuscular Hemoglobin 30 pg (26-34); Mean Corpuscular Volume 97 fL (80-100); Monocytes Percent Auto 2.7 % (0.0-11.0); Neutrophils Percent Auto 65.8 % (42.0-72.0); Platelet Count* 166 K/uL (140-440); RDW Coefficient of Variation % 14.6 % (11.5-15.5); Red Blood Count 3.61 m/uL (4.00-5.20); White Blood Count* 4.86 K/uL (4.50-11.00)
[2022-06-05 15:38] LABS: Potassium* 3.7 mmol/L (3.6-5.1)
[2022-06-05 15:39] LABS: Slide Review Reflex No
[2022-06-05 15:41] LABS: Creatinine* 2.3 mg/dL (0.5-1.5); Estimated Glomerular Filt Rate 23 ml/min; Glucose* 128 mg/dL (60-115)
[2022-06-05 15:42] LABS: Magnesium* 1.9 mg/dL (1.5-2.6); Phosphorus* 3.2 mg/dL (2.5-4.5)
[2022-06-05 15:47] LABS: Microalbumin Creatinine Ratio 70 mg/g (0-30); Microalbumin Urine 6 mg/dL
[2022-06-09 11:16] LABS: Mycophenolic Acid Glucuronide 180.8 ug/mL (35.0-100.0)
== END 2023-05-19 06:28 | disposition home or self-care (01) ==
LOC: LAB 14:11
PROVIDERS: PCP Physician Assistant Medical; Visit Provider Internal Medicine Nephrology
DX: Z94.0 Kidney transplant status (principal); Z79.899 Other long term (current) drug therapy; Z91.89 Other specified personal risk factors, not elsewhere classified; D84.9 Immunodeficiency, unspecified; Z11.4 Encounter for screening for human immunodeficiency virus [HIV]; Z48.22 Encounter for aftercare following kidney transplant
CPT/HCPCS: 36415; 80180; 80197; 82043; 82565; 82570; 82947; 83735; 84100; 84132; 85025; 87522; 87536; 87799

== ENCOUNTER 2022-12-21 14:55 | Outpatient (CLI) | payer MEDICARE, MEDICAID, SELFPAY | END 2022-12-21 14:56 | disposition home or self-care (01) | PROVIDERS: PCP Physician Assistant Medical; Visit Provider Physician Assistant Medical | DX: I10 Essential (primary) hypertension (principal); N18.9 Chronic kidney disease, unspecified; G62.9 Polyneuropathy, unspecified | CPT/HCPCS: 82607; 82746 ==

== ENCOUNTER 2023-02-08 15:44 | Outpatient (CLI) | payer MEDICARE, MEDICAID, SELFPAY | END 2023-02-08 15:45 | disposition home or self-care (01) | LOC: LKVREF 15:45 | PROVIDERS: PCP Physician Assistant Medical; Visit Provider Physician Assistant Medical | DX: N18.9 Chronic kidney disease, unspecified (principal); I10 Essential (primary) hypertension; R30.0 Dysuria; I16.0 Hypertensive urgency; R05.9 Cough, unspecified | CPT/HCPCS: 83880; 87086 ==

== ENCOUNTER 2023-03-09 10:28 | Outpatient (CLI) | payer MEDICARE, MEDICAID, SELFPAY | END 2023-03-09 10:29 | disposition home or self-care (01) | LOC: RAD 10:31 | PROVIDERS: PCP Physician Assistant Medical; Visit Provider Physician Assistant Medical | DX: I10 Essential (primary) hypertension (principal); I51.7 Cardiomegaly; I16.0 Hypertensive urgency | CPT/HCPCS: 93306 ==

== ENCOUNTER 2023-03-19 09:51 | Outpatient (CLI) | payer MEDICARE, MEDICAID, SELFPAY | END 2023-03-19 09:52 | disposition home or self-care (01) | PROVIDERS: PCP Physician Assistant Medical; Visit Provider Physician Assistant Medical | DX: I10 Essential (primary) hypertension (principal); R79.89 Other specified abnormal findings of blood chemistry; I16.0 Hypertensive urgency; N18.9 Chronic kidney disease, unspecified; Z94.0 Kidney transplant status; Z79.01 Long term (current) use of anticoagulants | CPT/HCPCS: 80076; 82085; 83880; 84244; 84443 ==

== ENCOUNTER 2023-07-19 14:16 | Outpatient (CLI) | payer MEDICARE, MEDICAID, SELFPAY | END 2023-07-19 14:17 | disposition home or self-care (01) | PROVIDERS: PCP Physician Assistant Medical; Visit Provider Physician Assistant Medical | DX: E78.2 Mixed hyperlipidemia (principal) | CPT/HCPCS: 80061 ==

== ENCOUNTER 2023-09-24 08:36 | Outpatient (CLI) | payer MEDICARE, MEDICAID, SELFPAY | END 2023-09-24 08:37 | disposition home or self-care (01) | PROVIDERS: PCP Physician Assistant Medical; Visit Provider Physician Assistant Medical | DX: G62.9 Polyneuropathy, unspecified (principal); Z13.21 Encounter for screening for nutritional disorder; Z13.0 Encounter for screening for diseases of the blood and blood-forming organs and certain disorders involving the immune mechanism | CPT/HCPCS: 82306; 82607; 82728; 82746; 84425 ==

== ENCOUNTER 2024-03-11 10:45 | Outpatient (CLI) | payer MEDICARE, MEDICAID, SELFPAY ==
--- OUTSIDE RECORDS SUMMARY | 2024-03-11 10:48 | XMS_ITS | Clinical Summary ---
Author Organization [facility] Address [address] [place] [address] Care Team Providers Care Waiter/Waitress First Class Name Role Phone Tanya Steve Primary Care Provider [phone] Allergies Active Allergy Reactions Criticality Noted Date Comments Epoetin (Rolando) GI Disturbance Medium 11/03/2016 ERYTHROPOIETIN- vomiting ERYTHROPOIETIN- vomiting Latex Other (See Comments) Medium 03/26/2012 Eczema Eczema Other Drug Allergy (See Comments) 01/09/2021 Unknown pain medication Medications No known medications Social History Tobacco Use Types Packs/Day Years Used Date Smoking Tobacco: Every Day Cigarettes Alcohol Use Standard Drinks/Week Comments Yes 0 (1 standard drink = 0.6 oz pur e alcohol) once in a blue mir 05/09/13 Adolescent Education Answer Date Record ed Getting School Help Needed Not on file 05/27 Sex and Gender Information Value Date Recorded Sex Assigned at Not on file Gender Identity Not on file Sexual Orientation Not on file Last Filed Vital Signs Vital Sign Reading Time Taken Comments Blood Pressure 193/111 01/09/2021 4:56 AM CDT Pulse 72 01/09/2021 4:56 AM CDT Temperature 36.9 ??C (98.4 ??F) 01/09/2021 4:56 AM CD T Respiratory Rate 20 01/09/2021 4:56 AM CDT Oxygen Saturation 98% 01/09/2021 4:56 AM CDT Inhaled Oxygen Concentration - - Weight 105.2 kg (232 lb) 12/04/2014 5:31 PM CDT Height - - Body Mass Index - - Plan of Treatment Not on file Care Teams Waiter/Waitress First Class Relationship Specialty Start Date End Date Steve Martínez DO [facility] [address] [place] [address] PCP - General Nephrology 05/09/13
--- OUTSIDE RECORDS SUMMARY | 2024-03-11 10:48 | XMS_ITS | Clinical Summary ---
Author Organization [facility] Facility Address [address] [place] [address] Care Team Providers Care Mathematics Professor Name Role Phone Unavailable Primary Care Provider Unavailabl e Social History Tobacco Use Types Packs/Day Years Used Date Smoking Tobacco: Never Assessed Sex and Gender Information Value Date Recorded Sex Assigned at Not on file Gender Identity Not on file Sexual Orientation Not on file Plan of Treatment Health Maintenance Due Date Last Done Comments Breast Cancer Screening 1960 Pneumococcal Vaccine: Pediat rics (0 to 5 Years) and At-Risk Patients (6 to 64 Years) (1 of 2 - PCV) 1965 Colorectal Cancer Screening: Annual FOBT 2008 Colorectal Cancer Screening: Colonoscopy 2008 Colorectal Cancer Screening: Sigmoidoscopy 2008 Diabetes: Hemoglobin A1C 04/30/2023 Diabetes: Ophthalmology Exam 04/30/2023 Diabetes: Pedal Pulse Checked 04/30/2023 Diabetes: Sensory Foot Exam 04/30/2023 Diabetes: Visual Foot Exam 04/30/2023 Influenza Vaccine (#1) 2024 Hepatitis B Vaccine Aged Out No longe r eligible based on patient's age to complete this topic Shabnam Wray Personal/Family Self 1960 [place] [address]
--- OUTSIDE RECORDS SUMMARY | 2024-03-11 10:49 | XMS_ITS | Clinical Summary ---
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 For routine questions regarding patient records, call [phone] during business hours, M-F 8:00 AM - 5:00 PM Central Time. Record requests for emergency care only can be directed to [phone] at any time.[facility] Allergies Active Allergy Reactions Criticality Noted Date Comments Epoetin Rolando GI intolerance Medium 11/03/2016 ERYTHROPOIETIN- vomiting Latex Other (see comments) Medium 03/26/2012 Eczema Pain Medicine Other (see comments) Medium 01/20/2020 Patient unsure of what medication it was. Had a pain med given intravenously and got very nauseous Medications Medication Sig Dispensed Refills Start Date End Date Status hydrocortisone (for_HYTONE) 2.5 % cream Apply 1 application topically daily as needed (Eczema). 09/18/2017 Active furosemide (LASIX) 40 mg tablet Take 40 mg by mouth 2 (two) times a day. 05/25/2022 Active gabapentin (NEURONTIN) 100 mg capsule Take 400 mg by mouth daily. Active rosuvastatin (CRESTOR) 5 mg tablet Take 1 tablet (5 mg total) by mouth daily. 90 tablet 01/23/2023 Active NIFEdipine XL (PROCARDIA XL) 30 mg 24 hr tablet Take 1 tablet (30 mg total) by mouth daily. 90 tablet 3 04/02/2023 4 Active mycophenolate (CELLCEPT) 250 mg capsuleIndications :Immunodeficiency (HCC),Transplant Renal (HCC),Medication Therapy Entry Level Not Anticoagulant Take 2 capsules (500 mg total) by mouth every 12 (twelve) hours. Take medication on an empty stomach. Do not break, cut, or open capsules. 360 capsule 3 06/19/2023 Active semaglutide (Ozempic) 0.25 mg or 0.5 mg (2 mg/3 mL) injection Inject 0.25 mg under the skin every 7 (seven) days. 4.5 mL 3 06/29/2023 4 Active predniSONE (DELTASONE) 5 mg tabletIndications: Immunodeficiency (HCC),Complication Kidney Transplant (HCC) take 1 tablet by mouth daily 90 tablet 3 07/06/2023 Active carvediloL (COREG) 25 mg tabletIndications: Transplant Renal (HCC) TAKE 1 TABLET(25 MG) BY MOUTH TWICE DAILY WITH MEALS 180 tablet 3 01/17/2024 Active tacrolimus (Prograf) 1 mg capsuleIndications :Immunodeficiency (HCC),Complication Kidney Transplant (HCC) Take 1 capsule (1 mg total) by mouth 2 (two) times a day. Take with 0.5mg capsules for total of 1.5mg twice daily 180 capsule 3 02/15/2024 Active tacrolimus (Prograf) 0.5 mg capsule Take 1 capsule (0.5 mg total) by mouth 2 (two) times a day. Take with 1 mg capsules for total of 1.5mg twice daily 180 capsule 3 02/15/2024 Active multivitamin tablet Take 1 tablet by mouth daily. 30 tablet 3 04/07/2022 2 Discontinu ed(Reorder ) tacrolimus (PROGRAF) 0.5 mg capsule Take 1 capsule (0.5 mg total) by mouth every morning. Take with 1mg capsules for total of 1.5mg am and 1mg pm 90 capsule 3 01/11/2024 4 Discontinu ed(Reorder ) tacrolimus (PROGRAF) 1 mg capsuleIndications :Immunodeficiency (HCC),Complication Kidney Transplant (HCC) Take 1 capsule (1 mg total) by mouth every morning AND 1 capsule (1 mg total) every evening. Take with 0.5mg capsules for total of 1.5mg am and 1mg pm. 180 capsule 3 01/11/2024 4 Discontinu ed(Reorder ) Active Problems Problem Noted Date Diagnosed Date Pain Back Lumbar 01/21/2024 Hyperparathyroidism Renal Secondary 06/26/2023 Atrial Premature Depolarization 07/31/2022 Bronchitis 07/31/2022 Cellulitis 07/31/2022 Depression 07/31/2022 Dysuria 07/31/2022 Hypertensive Chronic Kidney Disease (CKD) Stage 3b Glomerular Filtration Rate (GFR) 30 To 44 07/31/2022 Neuropathy 07/31/2022 Pain Foot Right 07/31/2022 Primary Osteoarthritis Knee Left 07/31/2022 Renal osteodystrophy 07/31/2022 Perianal Venous Thrombosis 07/31/2022 Other Retention Of Urine 07/31/2022 Immunodeficiency 04/13/2022 Hernia Abdominal Wall 12/12/2021 Smoking Tobacco Use Personal History 04/08/2021 Pain Neuropathic 04/05/2020 Urinary Tract Infection (UTI)/Bacteriuria NOS Overview (09/18/2022): Diagnosis Maintenance Updates Complication Dialysis Fistula Subsequent 018 Chronic Kidney Disease (CKD) , Stage 3b Glomerular Filtration Rate (GFR) 30 To 44 09/27/2016 Hyperlipidemia 03/27/2012 Transplant Renal 03/27/2012 Diabetes Mellitus Type 2 03/27/2012 Resolved Problems Problem Noted Date Diagnosed Date Resolved Date Edema Localized 07/31/2022 04/02/2023 Hypomagnesemia 04/28/2022 07/31/2022 Hypophosphatemia 04/28/2022 07/31/2022 Hyperkalemia 04/07/2022 04/26/2022 COVID-19 Infection 11/26/2020 Ureteral Stent Exchange 09/15/2019 09/0 02/2022 Obstruction Ureteropelvic 09/08/2019 Overview (09/15/2019): Added automatically from request for surgery [id number] Thombosis Arteriovenous Fistula Initial 05/30/2019 04/02/2023 Failure Renal End Stage 05/06/2019 06/0 10/2023 Complication Dialysis Device Subsequent 04/25/2019 04/26/2022 Anticoagulant Therapy 04/25/20192021 Chronic Failure Renal End St age Renal Disease Dialysis Dependent 04/10/2019 04/26/2022 Overview (04/10/2019): Added automatically from request for surgery [id number] Encounter For Fitting And Ad justment Of Extracorporeal Dialysis Catheter 03/10/2019 023 Overview (07/31/2022): Added automatically from request for surgery [id number] Obstruction Ureter 04/03/2018 Overview (04/03/2018): Added automatically from request for surgery [id number] Depression Major One Episode Full Remission 09/13/2017 04/02/2023 Chronic Kidney Disease Stage 5 Glomerular Filtration Rate Less Than 15 04/18/2017 07/31/2022 Chronic Kidney Disease Stage 3 Glomerular Filtration Rate 30 To 59 05/05/2015 02/11/2019 Complication Kidney Transplant 11/12/2014 04/26/2022 Hypertensive Chronic Kidney Disease With Stage 1 Through Stage 4 Chronic Kidney Disease, Or Unspecified Chronic Kidney Disease 03/27/2012 04/02/2023 Pretransplant Recipient Evaluation Exam 04/13/2022 Encounters Date Type Department Care Team Description 03/10/2024 7:21 AM CDT - 03/10/2024 11:59 PM CDT Hospital Encounter Department of Laboratory Medicine in [address] [phone] Soraya Lu P.A.-C., M.S. Transplant Renal (HCC); Immunodeficiency Due To Drugs (HCC); Medication Therapy Entry Level Not Anticoagulant Discharge Disposition: Home or Self Care 03/10/2024 7:21 AM CDT - 03/10/2024 11:59 PM CDT Hospital Encounter Department of Laboratory Medicine in [address] [phone] Soraya Lu P.A.-C., M.S. Transplant Renal (HCC); Immunodeficiency Due To Drugs (HCC); Medication Therapy Entry Level Not Anticoagulant Discharge Disposition: Home or Self Care 02/15/2024 Clinical Communication [facility] in [address] [phone] Lola Rios R.N. Tacrolimus Adjustment Protocol 02/11/2024 7:15 AM CDT - 02/11/2024 11:59 PM CDT Hospital Encounter Department of Laboratory Medicine in [address] [phone] Soraya Lu P.A.-C., M.S. Transplant Renal (HCC); Immunodeficiency Due To Drugs (HCC); Medication Therapy Entry Level Not Anticoagulant Discharge Disposition: Home or Self Care 02/11/2024 7:15 AM CDT - 02/11/2024 11:59 PM CDT Hospital Encounter Department of Laboratory Medicine in [address] [phone] Soraya Lu P.A.-Fracisco., M.S. Transplant Renal (HCC); Immunodeficiency Due To Drugs (HCC); Medication Therapy Entry Level Not Anticoagulant Discharge Disposition: Home or Self Care 02/08/2024 9:02 AM CDT - 02/08/2024 11:59 PM CDT Hospital Encounter Department of Radiology in [address] [phone] Steve Martínez Jr., D.O. Chronic Kidney Disease (CKD), Stage 3b Glomerular Filtration Rate (GFR) 30 To 44 (HCC); Hypertensive Chronic Kidney Disease (CKD) Stage 3b Glomerular Filtration Rate (GFR) 30 To 44; Diabetes Mellitus Type 2 (HCC); Hyperparathyroidism Renal Secondary (HCC); Transplant Renal (HCC); Immunodeficiency (HCC); Pain Back Lumbar Discharge Disposition: Home or Self Care 02/08/2024 9:01 AM CDT Hospital Encounter Department of Radiology in [address] [phone] Steve Martínez Jr., D.O. Chronic Kidney Disease (CKD), Stage 3b Glomerular Filtration Rate (GFR) 30 To 44 (HCC); Hypertensive Chronic Kidney Disease (CKD) Stage 3b Glomerular Filtration Rate (GFR) 30 To 44; Diabetes Mellitus Type 2 (HCC); Hyperparathyroidism Renal Secondary (HCC); Transplant Renal (HCC); Immunodeficiency (HCC); Pain Back Lumbar Discharge Disposition: Home or Self Care 01/21/2024 2:30 PM CDT External Outreach Division of Nephrology and Hypertension in [place], [place] [address] [place] [phone] Steve Martínez Jr., D.O. Chronic Kidney Disease (CKD), Stage 3b Glomerular Filtration Rate (GFR) 30 To 44 (HCC) (Primary Dx); Hypertensive Chronic Kidney Disease (CKD) Stage 3b Glomerular Filtration Rate (GFR) 30 To 44; Diabetes Mellitus Type 2 (HCC); Hyperparathyroidism Renal Secondary (HCC); Transplant Renal (HCC); Immunodeficiency (HCC); Pain Back Lumbar 01/17/2024 Refill Division of Nephrology and Hypertension in [place], [place] [address] [place] [phone] Steve Martínez Jr., D.O. Med Refill 01/11/2024 Clinical Communication [facility] in [address] [phone] Yari Zaidi RDaviNDavi Tacrolimus Adjustment Protocol 01/09/2024 7:22 AM CDT - 01/09/2024 11:59 PM CDT Hospital Encounter Department of Laboratory Medicine in [address] [phone] Soraya Lu P.A.-C., M.S. Transplant Renal (HCC); Immunodeficiency Due To Drugs (HCC); Medication Therapy Entry Level Not Anticoagulant Discharge Disposition: Home or Self Care 01/09/2024 7:22 AM CDT - 01/09/2024 11:59 PM CDT Hospital Encounter Department of Laboratory Medicine in [address] [phone] Soraya Lu P.A.-C., M.S. Transplant Renal (HCC); Immunodeficiency Due To Drugs (HCC); Medication Therapy Assisted Not Anticoagulant Discharge Disposition: Home or Self Care from Last 3 Months Immunizations Name Administration Dates Next Due HepA Adult 09/18/2017 HepB Adult 07/03/2018, 8,01/28/2018,2017,12/12/2017,09/15/2017,07/24/2017,1 08/23/2016 HepB Dialysis 09/19/2021, 8,02/27/2018,2017,12/28/2017,12/12/2017,09/15/2017,1 09/24/2016,06/23/2017 Influenza (IM) Preservative Free 05/14/2012 Influenza, Unspecified 01/03/2022(Deferr ed: Other - up to date),06/13/2021,06/08/2021,05/21/2020, 05/15/2018,06/15/2017 PCV13 06/05/2014 PPD Test 09/16/2021,,06/21/2020,2018,07/07/2019,06/24/2018,07/05/2017,1 08/21/2016 Pneumococcal Conjugate(PCV), Unspecified 05/03/2020,06/21/2017 RZV (SHINGRIX) 01/03/2022(Deferred: Contraindication),01/20/2020(Deferred: Other - will check with pcp) Tdap 09/18/2017 influenza vaccine quad (FLUZONE/FLUARIX) (6 months and older)(PF) 05/31/2019,06/05/2014 Family History * Patient is adopted Medical History Relation Name Comments No Known Problems Father No Known Problems Mother Relation Name Status Comments Father Mother Social History Tobacco Use Types Packs/Day Years Used Date Smoking Tobacco: Former Cigarettes 1.5 47 0 01/29/1975 - 01/04/2021 Smokeless Tobacco: Never Alcohol Use Standard Drinks/Week Comments No 0 (1 standard drink = 0.6 oz pur e alcohol) [facility] Utilities Answer Date Recorded In the past 12 months has th e [email or web address], gas, oil, or water company threatened to shut off services in your home? No 10/11/2023 Humiliation, Afraid, Rape, and Kick questionnair e Answer Date Recorded Within the last year, have y ou been afraid of your partner or ex-partner? No 12/23/2021 Within the last year, have y ou been humiliated or emotionally abused in other ways by your partner or ex-partner? No Within the last year, have y ou been kicked, hit, slapped, or otherwise physically hurt by your partner or ex-partner? No 12/23/2021 Within the last year, have y ou been raped or forced to have any kind of sexual activity by your partner or ex-partner? No 12/23/2021 Social Connection and Isolation Panel [NHANES] A nswer Date Recorded In a typical week, how many times do you talk on the phone with family, friends, or neighbors? Twice a week 12/24/19 How often do you get togethe r with friends or relatives? Patient declined 12/23/2021 How often do you attend chur ch or mandaen services? 1 to 4 times per year 12/23/2021 Do you belong to any clubs o r organizations such as caodaism groups, unions, fraternal or athletic groups, or school groups? No 12/23/2021 How often do you attend meet ings of the clubs or organizations you belong to? Never 12/23/2021 Are you , , di vorced, , never , or living with a partner? 12/23/2021 AUDIT-C Answer Date Recorded Q1: How often do you have a drink containing alc ohol? Never 12/23/2021 Average Number of Drinks Not on file 022 Frequency of Binge Drinking Not on file 01/2022 Overall Financial Resource Strain (CARDIA) Answe r Date Recorded How hard is it for you to pa y for the very basics like food, housing, medical care, and heating? Not very hard 12/23/2021 PHQ-2 Answer Date Recorded PHQ-2 Score 2 04/09/2022 [facility] - Occupational Stress Questionnaire Answer Date Recorded Do you feel stress - tense, restless, nervous, or anxious, or unable to sleep at night because your mind is troubled all the time - these days? To some extent 12/23/2021 Exercise Vital Sign Answer Date Recorde d On average, how many days pe r week do you engage in moderate to strenuous exercise (like a brisk walk)? 1 day 10/11/2023 On average, how many minutes do you engage in exercise at this level? 60 min 10/11/2023 Hunger Vital Sign Answer Date Recorded Within the past 12 months, y ou worried that your food would run out before you got the money to buy more. Patient declined Within the past 12 months, t he food you bought just didn't last and you didn't have money to get more. Patient declined PRAPARE - Transportation Answer Date Re corded In the past 12 months, has l ack of transportation kept you from medical appointments or from getting medications? No 09/21 In the past 12 months, has l ack of transportation kept you from meetings, work, or from getting things needed for daily living? No 10/11/2023 Depression Answer Date Recor ded PHQ-9 Total Score (max 27) 3 04/07 Nutrition Answer Date Recorded Nutrition: EVOO Fat Source Yes 10/11 On average, how many serving s of fruits and vegetables do you eat per day (serving size is equal to 1 cup or approximately the size of a tennis ball)? 3-5 10/11/2023 Dental Answer Date Recorded Dental: Regular Dentist Yes 10/07/19 21 Employment Answer Date Recorded Employment status Permanently disabled Housing Stability Answer Date Recorded What is your living situation today? I have a [facility] place to live 10/11/2023 Education Answer Date Recorded What is the highest level of school you have completed or the highest degree you have received? 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 [address] [place] [phone] 04/22/2024 7:30 AM CDT Appointment Department of Laboratory Medicine in [address] [phone] Soraya Lu P.A.-Fracisco., M.S. [address] [place] [phone] 04/22/2024 7:40 AM CDT Appointment Department of Laboratory Medicine in [address] [phone] Soraya Lu P.A.-C., M.S. [address] [place] [phone] Health Maintenance Due Date Last Done Comments CT Colonography 1959 Cologuard 1959 Diabetic Office Visit with Foot Exam 1959 Dilated Eye Exam 1959 FIT 1959 Lung Cancer Screening 1959 Hepatitis A Vaccines (2 of 2 - Risk 2-dose series) 03/18/2018 09/18/2017 Pneumococcal vaccine (0-64 years) (2 of 2 - PPSV23 or PCV20) 06/28/2020 05/03/2020, 06/21/2017, 06/05/2014 Zoster Vaccines (2 of 2) 02/28/2022 01/03/2022 Hepatitis B Vaccines (18 of 18 - Risk Dialysis Recombivax 3-dose series) 09/19/2022 09/19/2021, 07/03/2018, 07/03/2018, Additional history exists Depression Screening (Annual PHQ-2) 08/20/2023 Hemoglobin A1C 03/27/2024 09/27/2023, 07/20, 04/07/2021, Additional history exists Mammogram 04/25/2024 04/25/2023, 08/20, 09/14/2017 Influenza Vaccine (#1) 2024 , 06/13/2021, 06/08/2021, Additional history exists Sodium Level 09/27/2024 09/27/2023, 02/0 08/2023, 08/23/2023, Additional history exists Office Visit for Blood Pressure Check / Re-check 01/20/2025 01/21/2024 Creatinine Level (Kidney Function Test) 03/10/2025 03/10/2024, 02/11/2024, 01/09/2024, Additional history exists Potassium Level 03/10/2025 03/10/2024, 01/19, 01/09/2024, Additional history exists Urine Albumin 03/10/2025 03/10/2024, 01/19, 01/09/2024, Additional history exists Colonoscopy 09/14/2027 09/14/2017 Colorectal Cancer Screening 09/14/2027 DTaP,Tdap,and Td Vaccines (2 - Td or Tdap) 09/18/2027 09/18/2017 Lipid (Cholesterol) Screening 09/27/2028 09/27/2023, 07/31/2022, 04/21/2022, Additional history exists COVID-19 Vaccine Completed 11/19/2023, 12/2021, 07/26/2021, Additional history exists HPV Vaccines Aged Out No longer eligi ble based on patient's age to complete this topic Medical Devices Implanted Type Area Insurance Counsel Device Identifier Shelf Expiration Date Model / Serial / Lot Clp Hrzn Ti 6 Clp Mike - [id number] Implanted:Qty: 2 on 05/06/2019 by Guillermo Yu M.B.B.S. at [facility] Hardware e.g. pins/screws /rods [employer] [id number] / / Clp Lgc Lgt Ti Sm - [id number] Implanted:Qty: 1 on 05/06/2019 by Guillermo Yu M.B.B.S. at [facility] Hardware e.g. pins/screws /rods Ethicon [id number] / / Dev Opt-At Ang Tp Abs - [id number] Implanted:Qty: 1 on 02/14/2022 by Cresencio Chen M.D. at [facility] Hardware e.g. pins/screws /rods N/A: Abdomen C.R.Bard 09/16/2023 [id number] / / [id number] Dev Opt-At Ang Tp Abs 15 - [id number] Implanted:Qty: 1 on 02/14/2022 by Cresencio Chen M.D. at [facility] Hardware e.g. pins/screws /rods N/A: Abdomen C.R.Bard 02/14/2023 [id number] / / [id number] Clp Apr Lgc Intnl Lng 11.5 - [id number] Implanted:Qty: 1 on 04/06/2022 by Nehemias Felipe M.D. at [facility] Hardware e.g. pins/screws /rods Ethicon [id number] / / Grft Vsc Bov 0.8x8 - [id number] Implanted:Qty: 1 on 05/06/2019 by Guillermo Yu M.B.B.SDavi at [facility] Mesh or Patch Synovis 11/21/2023 [id number] / / [id number] [facility] Vnt Doug Synth 15x20 - [id number] Implanted:Qty: 1 on 02/14/2022 by Cresencio Chen M.D. at [facility] Mesh or Patch N/A: Abdomen C.R.Bard 05/17/2022 [id number] / / [id number] Grft Prp Str 6x40 - [id number] - [id number] Implanted:Qty: 1 on 05/06/2019 by Guillermo Yu M.B.B.SDavi at [facility] Vascular Graft [place] 02/26/2022 [id number] / [id number] / Stnt Viabahn 035 [id number] - [id number] - [id number] Implanted:Qty: 1 on 12/23/2020 by Jatin Mcconnell M.D. at [facility] Vascular Graft [place] 05/05/2023 [id number] / [id number] / Stnt Viabahn Mrk 0.517r2h3 - [id number] - [id number] Implanted:Qty: 1 on 10/25/2018 by Jamin Christianson M.D. at [facility] Vascular Stent [place] 07/10/2021 [id number] / [id number] / Stnt Viabahn 018 [id number] - [id number] - [id number] Implanted:Qty: 1 on 12/15/2020 by Jatin Mcconnell M.D. at [facility] Vascular Stent [place] 07/28/2023 [id number] / [id number] / Explanted Type Area Insurance Counsel Device Identifier Shelf Expiration Date Model / Serial / Lot Sprint Endura Pns System Implanted:Qty: 1 on 10/14/2020 by Юлия Painter M.D. at [facility] Arevalo/Gonda Explanted:11/19 (Quantity not on file) Stimulator Other Right: Arm Unknown 04/19/2021 [id number] / / [id number] Description:Trial PNS-explan rebecca 12/09/20 Amplatz Ureteral J Stent 8.5 Fr 16 Cm - Oakes [id number] Implanted:Qty: 1 on 06/05/2014 Explanted:10/18 (Quantity not on file) Ureteral Stent Ureter [employer] Description:Device Manufactu [employer] Inc. Device Status Text - UROLOGY-12627. Amplatz Ureteral J Stent 8.5 Fr 16 Cm - [place]akes [id number] Implanted:Qty: 1 on 11/05/2014 Explanted:11/20 (Quantity not on file) Ureteral Stent Ureter [employer] Description:Device Manufactu [employer] Inc. Device Status Text - UROLOGY-46174. Stent Ureteral Inlay [id number] - Oakes [id number] Implanted:Qty: 1 on 11/05/2014 Explanted:11/20 (Quantity not on file) Ureteral Stent Ureter C.R.Bard Description:Device Manufactu [facility] [employer] Patient Care Division. Device Status Text - UROLOGY-054315. Amplatz Ureteral J Stent 8.5 Fr 16 Cm - [place]akes [id number] Implanted:Qty: 1 on 09/11/2016 Explanted:11/19 (Quantity not on file) Ureteral Stent Ureter [employer] Description:Device Manufactu [employer] Inc. Device Status Text - UROLOGY-70135. Stent Inlay 8fr X 20cm - Oakes [id number] Implanted:Qty: 1 on 12/14/2016 Explanted:Qty: 1 on 05/14/2018 by Teresa Antonio M.D. at [facility] Ureteral Stent C.R.Bard Description:Device Manufactu [facility] [employer] Patient Care Division. Device Status Text - UROLOGY-085429. MARCELO Data - [id number]. Stent Inlay 8fr X 20cm - Oakes [id number] Implanted:Qty: 1 on 06/12/2017 Explanted:02/2019 (Quantity not on file) Ureteral Stent Ureter C.R.Bard Description:Device Manufactu [facility] [employer] Patient Care Division. Device Status Text - UROLOGY-661236. MARCELO Data - [id number]. Stnt Uret Inl 8fx20 - [id number] Implanted:Qty: 1 Explanted:Qty: 1 on 09/05/2018 at [facility] Ureteral Stent Right: Ureter C.R.Bard [id number] / / [id number] Stnt Uret Inl 8fx20 - [id number] Implanted:Qty: 1 on 05/14/2018 by Teresa Antonio M.D. at [facility] Explanted:Qty: 1 on 09/05/2018 by Vicente Robledo M.D. at [facility] Ureteral Stent Right: Ureter C.R.Bard [id number] 09/30/2020 [id number] / / [id number] [facility] 8fx20 - [id number] Implanted:Qty: 1 on 12/26/2018 by Shanon Benjamin M.D. at [facility] Explanted:Qty: 1 Ureteral Stent C.R.Bard [id number] 09/30/2020 [id number] / / [id number] Stent Inlay 8fr X 20cm - Oakes [id number] Implanted:Qty: 1 on 12/17/2014 Explanted:Qty: 1 on 12/26/2018 by Shanon Benjamin M.D. at [facility] Ureteral Stent C.R.Bard Description:Device Manufactu rer - [facility]. Device Status Text - UROLOGY-582085. [facility] Data - [id number]. 12-26-2018 removed 8x20 stent from the right ureter [facility] 8fx20 - [id number] Implanted:Qty: 1 on 09/05/2018 by Vicente Robledo M.D. at [facility] Explanted:Qty: 1 on 09/16/2019 by Geraldo Salinas M.D. at [facility] Ureteral Stent Right: Ureter C.R.Bard [id number] 09/30/2020 [id number] / / [id number] Stent Inlay 8fr X 20cm - Oakes [id number] Implanted:Qty: 1 on 09/05/2017 Explanted:11/2019 (Quantity not on file) Ureteral Stent Ureter C.R.Bard Description:Device Manufactu rer - [facility] Patient Care Division. Device Status Text - [id number]. [facility] Data - [id number]. Stnt Uret Inl 8fx20 - [id number] Implanted:Qty: 1 on 09/16/2019 by Geraldo Salinas M.D. at [facility] Explanted:Qty: 1 on 12/16/2020 by Elena Melgar M.D. at [facility] Ureteral Stent Right: Ureter C.R.Bard [id number] 09/30/2020 [id number] / / [id number] Stnt Uret Inl 8fx20 - [id number] - [id number] Implanted:Qty: 1 on 01/22/2020 by Beck Galarza M.D. at [facility] Explanted:11/19 (Quantity not on file) Ureteral Stent C.R.Bard 01/26/2023 [id number] / [id number] / [id number] Description:Right allograft kidney ureter Stnt Uret W/O Gw Imj 8fx20 - [id number] Implanted:Qty: 1 on 12/16/2020 by Geraldo Spear M.D. at [facility] Explanted:Qty: 1 on 01/05/2022 by Tanvir Young M.D. at [facility] Ureteral Stent Right: Ureter Coloplast [id number] 06/26/2021 [id number] / [id number] Stnt Uret W/O Gw Imj 8fx20 - [id number] Implanted:Qty: 1 on 01/05/2022 by Tanvir Young M.D. at [facility] Explanted:Qty: 1 on 04/27/2022 Ureteral Stent Right: Ureter Coloplast [id number] 10/20/2022 [id number] / / [id number] Stnt Uret Cls Tp Dbl 7fx16 - [id number] Implanted:Qty: 1 on 04/06/2022 by Nehemias Felipe M.D. at [facility] Explanted:Qty: 1 on 04/27/2022 Ureteral Stent 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 Therapy Entry Level Not Anticoagulant CREATININE WITH EGFR, S/P Routine 03/10/2024 7:35 AM CDT 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 Therapy Entry Level Not Anticoagulant CBC WITH DIFFERENTIAL, B Routine 03/10/2024 7:35 AM CDT 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 Therapy Assisted Not Anticoagulant ALBUMIN, RANDOM, U Routine 02/11/2024 7:37 AM CDT 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 Therapy Entry Level Not Anticoagulant GLUCOSE, FASTING, S/P Routine 02/11/2024 7:26 AM CDT 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 Therapy Assisted Not Anticoagulant POTASSIUM, S/P Routine 02/11/2024 7:25 AM CDT 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 Therapy Assisted Not Anticoagulant CREATININE WITH EGFR, S/P Routine 02/11/2024 7:25 AM CDT 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 Therapy Assisted Not Anticoagulant CBC WITH DIFFERENTIAL, B Routine 02/11/2024 7:25 AM CDT 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 Therapy Entry Level Not Anticoagulant TACROLIMUS LEVEL, B Routine 02/11/2024 7:25 AM CDT 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 Therapy Entry Level Not Anticoagulant MR LUMBAR SPINE WITHOUT IV CONTRAST RAD - Routine (most inpatients and all outpatients) 02/08/2024 10:02 AM CDT Chronic Kidney Disease (CKD), Stage 3b Glomerular Filtration Rate (GFR) 30 To 44 (HCC) Hypertensive Chronic Kidney Disease (CKD) Stage 3b Glomerular Filtration Rate (GFR) 30 To 44 Diabetes Mellitus Type 2 (HCC) Hyperparathyroidism Renal Secondary (HCC) Transplant Renal (HCC) Immunodeficiency (HCC) Pain Back Lumbar DX LUMBAR SPINE 4+ VIEWS RAD - Routine (most inpatients and all outpatients) 02/08/2024 9:17 AM CDT Chronic Kidney Disease (CKD), Stage 3b Glomerular Filtration Rate (GFR) 30 To 44 (HCC) Hypertensive Chronic Kidney Disease (CKD) Stage 3b Glomerular Filtration Rate (GFR) 30 To 44 Diabetes Mellitus Type 2 (HCC) Hyperparathyroidism Renal Secondary (HCC) Transplant Renal (HCC) Immunodeficiency (HCC) Pain Back Lumbar ALBUMIN, RANDOM, U Routine 01/09/2024 7:42 AM CDT 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 Therapy Entry Level Not Anticoagulant GLUCOSE, FASTING, S/P Routine 01/09/2024 7:31 AM CDT 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 Therapy Assisted Not Anticoagulant POTASSIUM, S/P Routine 01/09/2024 7:30 AM CDT 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 Therapy Assisted Not Anticoagulant CREATININE WITH EGFR, S/P Routine 01/09/2024 7:30 AM CDT 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 Therapy Assisted Not Anticoagulant CBC WITH DIFFERENTIAL, B Routine 01/09/2024 7:30 AM CDT 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 Therapy Assisted Not Anticoagulant TACROLIMUS LEVEL, B Routine 01/09/2024 7:30 AM CDT 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 Therapy Entry Level Not Anticoagulant HEMOGLOBIN A1C, B Routine 09/27/2023 7:31 AM SERVICE RIG OPERATOR Transplant Renal (HCC) Diabetes Mellitus Type 2 (HCC) LIPID PANEL, S Routine 09/27/2023 7:31 AM SERVICE RIG OPERATOR Transplant Renal (HCC) COMPREHENSIVE METABOLIC PANEL, S/P Routine 09/27/2023 7:31 AM SERVICE RIG OPERATOR Transplant Renal (HCC) BI BREAST SCREENING BILATERAL WITH TOMOSYNTHESIS RAD - Routine (most inpatients and all outpatients) 04/25/2023 9:47 AM CDT Screening Mammogram Breast Cancer COLONOSCOPY Routine 09/14/2017 8:06 AM SERVICE RIG OPERATOR from Last 3 Months or Most Recently Relevant to Health Maintenance Results * Albumin, Random, Urine (03/10/2024 7:39 AM CDT) Only the most recent of3 resultswithin the time period is included. Microalbumin 20.4 mg/L 03/10/2024 7:54 AM CDT CNFL Creatinine 91 mg/dL 03/10/2024 7:54 AM CDT CNFL Albumin/Creatinin e Ratio 22 <25 mg/g 03/10/2024 7:54 AM CDT CNFL Urine (Urine, Midstream) 03/10/2024 7:39 AM CDT 03/10/2024 7:39 AM CDT Soraya Lu P.A.-C., M.S. LAB URI NE ORDERABLES [facility] [address] [place] [address], [facility] CNFL [facility] in [address] [address] * (ABNORMAL) CBC with Differential, Blood (03/10/2024 7:35 AM CDT) Only the most recent of3 resultswithin the time period is included. Hemoglobin 14.0 11.6 - 15.0 g/dL 03/10/2024 8:01 AM CDT CNFL Hematocrit 42.6 35.5 - 44.9 % 03/10/2024 8:01 AM CDT CNFL Erythrocytes 4.86 3.92 - 5.13 x10(12)/L 03/10/2024 8:01 AM CDT CNFL MCV 87.7 78.2 - 97.9 fL 03/10/2024 8:01 AM CDT CNFL RBC Distrib Width 13.7 12.2 - 16.1 % 03/10/2024 8:01 AM CDT CNFL Platelet Count 130(L) 157 - 371 x10(9)/L 03/10/2024 8:01 AM CDT CNFL Leukocytes 6.3 3.4 - 9.6 x10(9)/L 03/10/2024 8:01 AM CDT CNFL Neutrophils 3.97 1.56 - 6.45 x10(9)/L 03/10/2024 8:01 AM CDT CNFL Lymphocytes 1.60 0.95 - 3.07 x10(9)/L 03/10/2024 8:01 AM CDT CNFL Monocytes 0.59 0.26 - 0.81 x10(9)/L 03/10/2024 8:01 AM CDT CNFL Eosinophils 0.11 0.03 - 0.48 x10(9)/L 03/10/2024 8:01 AM CDT CNFL Basophils <0.04 0.01 - 0.08 x10(9)/L 03/10/2024 8:01 AM CDT CNFL Blood (Blood, Venous) 03/10/2024 7:35 AM CDT 03/10/2024 7:37 AM CDT Soraya Lu P.A.-C., M.S. LAB BLO OD ADD-ON Performing Organization Address City/[facility]/[place] [address], [facility] CNFL [address] [address] * Potassium (03/10/2024 7:35 AM CDT) Only the most recent of3 resultswithin the time period is included. Potassium, P 3.6 3.6 - 5.2 mmol/L 03/10/2024 8:14 AM CDT CNFL Blood (Blood, Venous) 03/10/2024 7:35 AM CDT 03/10/2024 7:37 AM CDT Soraya Lu P.A.-C., M.S. LAB BLO OD ADD-ON Performing Organization Address [facility] Co de Phone Number [address] [address], [place] [address] * (ABNORMAL) Glucose, Fasting (03/10/2024 7:35 AM CDT) Only the most recent of3 resultswithin the time period is included. Glucose, P 101(H) 70 - 100 mg/dL 03/10/2024 8:11 AM CDT CNFL Last Intake 15 hr 03/10/2024 7:37 AM CDT CNFL Blood (Blood, Venous) 03/10/2024 7:35 AM CDT 03/10/2024 7:37 AM CDT Soraya Lu P.A.-C., M.S. LAB BLO OD NON ADD-ON Performing Organization Address City/[facility]/ZIP Co de Phone Number [address] [place] [address], [facility] in [address] [address] * (ABNORMAL) Creatinine with Estimated GFR (03/10/2024 7:35 AM CDT) Only the most recent of3 resultswithin the time period is included. Creatinine 1.66(H) 0.59 - 1.04 mg/dL 03/10/2024 8:14 AM CDT CNFL Estimated GFR (eGFR) 34(L) >=60 mL/min/BSA 03/10/2024 8:14 AM CDT [facility] Comment: Estimated GFR calculated using the 2020 CKD_EPI creatinine equation. Blood (Blood, Venous) 03/10/2024 7:35 AM CDT 03/10/2024 7:37 AM CDT Soraya Lu P.A.-C., M.S. LAB BLO OD ADD-ON [facility]- [address] [address], [facility] in [address] [address] * Tacrolimus, Trough (02/11/2024 7:25 AM CDT) Only the most recent of2 resultswithin the time period is included. Tacrolimus, Trough 5.0 5.0-15.0 (Trough) ng/mL 02/12/2024 9:29 AM CDT [facility] Comment: ----ADDITIONAL INFORMATION---- Target steady-state trough concentrations vary depending on the type of transplant, concomitant immunosuppression, clinical/institutional protocols, and time post-transplant. Results should be interpreted in conjunction with this clinical information and any physical signs/symptoms of rejection/toxicity. Testing performed by Liquid Chromatography-Tandem Mass Spectrometry (LC-MS/MS). This test was developed and its performance characteristics determined by [facility] in a manner consistent with CLIA requirements. This test has not been cleared or approved by the U.S. Food and Drug Administration. Blood (Blood, Venous) 02/11/2024 7:25 AM CDT 02/12/2024 6:51 AM CDT Soraya Lu P.A.-C. MDaviS. LAB BLO OD NON ADD-ON [facility] [address] [place] [address] [facility] [address] [place] [address] [place] [address] * MR Lumbar Spine without IV Contrast (02/08/2024 10:02 AM CDT) Anatomical Region Laterality Modality Lumbar Spine, Neuroradiology RST LOS, Neuroradiology ARZ LOS, Neuroradiology FLA LOS N/A Magnetic Resonance Impressions 02/08/2024 10:25 AM CDT 1. Multilevel lumbar spondylosis most pronounced L3-L4 where there is mild to moderate bilateral neuroforaminal and mild spinal canal stenosis as well as L5- S1 where a left central disc extrusion exerts mass effect on the traversing S1 nerve root. Narrative 02/08/2024 10:25 AM CDT EXAM: ??MR LUMBAR SPINE WITHOUT IV CONTRAST COMPARISON: ??CT abdomen pelvis 04/14/2021 FINDINGS: ?? L1-2: ??Normal disc. Mild bilateral facet arthritis. No significant neuroforaminal or spinal canal stenosis. L2-3: ??Normal disc. Mild bilateral facet osteoarthritis. No significant neuroforaminal or spinal canal stenosis. L3-4: ??Diffuse disc bulge. Moderate bilateral facet osteoarthritis. Mild/moderate bilateral neuroforaminal stenosis. Mild spinal canal stenosis. L4-5: ??Diffuse disc bulge. Moderate bilateral facet osteoarthritis. Mild bilateral neuroforaminal stenosis. Mild spinal canal stenosis. L5-S1: ??Diffuse disc bulge with cranially directed left central disc extrusion which effaces the left lateral recess and exerts mass effect on the traversing S1 nerve root. Moderate bilateral facet osteoarthritis. Mild bilateral neuroforaminal stenosis. Mild spinal canal stenosis. Alignment: ??Grade 1 anterolisthesis L3 on L4 and mild retrolisthesis L5 on S1 Bone Marrow: ??Modic type I endplate degenerative changes at L3-L4 Conus: ??Normal termination Extra-spinal Findings: ??Atrophy of the mary's igloo kidneys with numerous T2 hyperintense lesions favored to represent cysts which are partially imaged. Left iliac fossa renal transplant is partially imaged. For the purpose of this report, 5 lumbar type vertebral bodies are assumed. ??Close radiographic correlation recommended prior to any spinal intervention or surgery. Procedure Note Efren Beckett M.D. - 02/08/2024 EXAM: MR LUMBAR SPINE WITHOUT IV CONTRAST COMPARISON: CT abdomen pelvis 04/14/2021 FINDINGS: L1-2: Normal disc. Mild bilateral facet arthritis. No significantneuroforaminal or spinal canal stenosis. L2-3: Normal disc. Mild bilateral facet osteoarthritis. No significantneuroforaminal or spinal canal stenosis. L3-4: Diffuse disc bulge. Moderate bilateral facet osteoarthritis.Mild/moderate bilateral neuroforaminal stenosis. Mild spinal canalstenosis. L4-5: Diffuse disc bulge. Moderate bilateral facet osteoarthritis. Mildbilateral neuroforaminal stenosis. Mild spinal canal stenosis. L5-S1: Diffuse disc bulge with cranially directed left central discextrusion which effaces the left lateral recess and exerts mass effect onthe traversing S1 nerve root. Moderate bilateral facet osteoarthritis.Mild bilateral neuroforaminal stenosis. Mild spinal canal stenosis. Alignment: Grade 1 anterolisthesis L3 on L4 and mild retrolisthesis L5 onS1 Bone Marrow: Modic type I endplate degenerative changes at L3-L4 Conus: Normal termination Extra-spinal Findings: Atrophy of the mary's igloo kidneys with numerous [id number] lesions favored to represent cysts which are partiallyimaged. Left iliac fossa renal transplant is partially imaged. For the purpose of this report, 5 lumbar type vertebral bodies areassumed. Close radiographic correlation recommended prior to any spinalintervention or surgery. IMPRESSION: 1. Multilevel lumbar spondylosis most pronounced L3-L4 where there is mildto moderate bilateral neuroforaminal and mild spinal canal stenosis aswell as L5-S1 where a left central disc extrusion exerts mass effect onthe traversing S1 nerve root. Steve Martínez Jr., D.O. [facility] MRI PROC EDURES * DX Lumbar Spine 4+ Views (02/08/2024 9:17 AM CDT) Anatomical Region Laterality Modality Lumbar Spine, Musculoskeleta l RST LOS, Neuroradiology ARZ LOS, Muskuloskeletal FLA LOS N/A Digital Radiography Impressions 02/08/2024 9:27 AM CDT Slight convex right curvature of the lumbar spine. L3 spondylolysis with grade 2 spondylolisthesis of L3 on 4, position is not significantly change during flexion and extension. Vertebral body height and alignment is otherwise maintained. [id number] degenerative lumbar spondylosis most pronounced at L3-4. Atherosclerotic vascular disease. Narrative 02/08/2024 9:27 AM CDT EXAM: DX LUMBAR SPINE 4+ VIEWS Procedure Note Nicolas Saenz M.D. - 02/08/2024 EXAM: DX LUMBAR SPINE 4+ VIEWS IMPRESSION: Slight convex right curvature of the lumbar spine. L3 spondylolysis with grade 2 spondylolisthesis of L3 on 4, position isnot significantly change during flexion and extension. Vertebral body height and alignment is otherwise maintained.[id number] degenerative lumbar spondylosis most pronounced atL3-4. Atherosclerotic vascular disease. Steve Martínez Jr., D.O. IMG DIAGNOST IC IMAGING PROCEDURES * (ABNORMAL) Lipid Panel (09/27/2023 7:31 AM SERVICE RIG OPERATOR) Triglycerides 179(H) mg/dL 09/27/2023 8:36 AM SERVICE RIG OPERATOR DTL Comment: ----REFERENCE VALUE---- Normal: <150 mg/dL Borderline High: 150-199 mg/dL High: 200-499 mg/dL Very High: > or =500 mg/dL Cholesterol, Total 155 mg/dL 2023 8:36 AM SERVICE RIG OPERATOR DTL Comment: ----REFERENCE VALUE---- Desirable: < 200 mg/dL Borderline High: 200 - 239 mg/dL High: > or = 240 mg/dL Cholesterol, LDL, Calculated 79 mg/dL 09/27/2023 8:36 AM SERVICE RIG OPERATOR DTL Comment: ----REFERENCE VALUE---- Desirable: <100 mg/dL Above Desirable: 100-129 mg/dL Borderline High: 130-159 mg/dL High: 160-189 mg/dL Very High: >=190 mg/dL ----ADDITIONAL INFORMATION---- LDL cholesterol calculated using the Smith/NIH equation. Cholesterol, HDL, S 46(L) >=50 mg/dL 09/27/2023 8:36 AM SERVICE RIG OPERATOR DTL Cholesterol, Non-HDL, Calculated 109 mg/dL 09/27/2023 8:36 AM SERVICE RIG OPERATOR DTL Comment: ----REFERENCE VALUE---- Desirable: <130 mg/dL Above Desirable: 130-159 mg/dL Borderline High: 160-189 mg/dL High: 190-219 mg/dL Very High: > or =220 mg/dL Fasting (8 HR or more) Unknown 09/27/2023 8:04 AM SERVICE RIG OPERATOR DTL Blood (Blood, Venous) 09/27/2023 7:31 AM SERVICE RIG OPERATOR 09/27/2023 8:04 AM SERVICE RIG OPERATOR Soraya Lu P.A.-C., M.S. LAB BLO OD ADD-ON Performing Organization Address [facility] Co de Phone Number [facility] [address] [place] [address], [facility] [address] [place] [address] * (ABNORMAL) Hemoglobin A1c (09/27/2023 7:31 AM SERVICE RIG OPERATOR) Hemoglobin A1c, B 5.8(H) 4.0 - 5.6 % 09/27/2023 8:48 AM SERVICE RIG OPERATOR DTL Comment: Hemoglobin A1c values of 5.7-6.4 percent indicate an increased risk for developing diabetes mellitus. In diabetic patients, HbA1c goals should be discussed with healthcare provider. Blood (Blood, Venous) 09/27/2023 7:31 AM SERVICE RIG OPERATOR 09/27/2023 7:43 AM SERVICE RIG OPERATOR Soraya Lu P.A.-C., M.S. LAB BLO OD ADD-ON Performing Organization Address [facility] Co de Phone Number [facility] [address] [place] [address], [facility] DTL [address] [place] [address] * (ABNORMAL) Comprehensive Metabolic Panel (09/27/2023 7:31 AM SERVICE RIG OPERATOR) Pathologist [facility] Potassium, S 3.7 3.6 - 5.2 mmol/L 09/27/2023 8:36 AM SERVICE RIG OPERATOR DTL Sodium, S 143 135 - 145 mmol/L 09/27/2023 8:36 AM SERVICE RIG OPERATOR DTL Chloride, S 106 98 - 107 mmol/L 09/27/2023 8:36 AM SERVICE RIG OPERATOR DTL Bicarbonate, S 24 22 - 29 mmol/L 09/27/2023 8:36 AM SERVICE RIG OPERATOR DTL Anion Gap 13 7 - 15 09/27/2023 8:36 AM SERVICE RIG OPERATOR DTL BUN (Blood Urea Nitrogen), S 19 6 - 21 mg/dL 09/27/2023 8:36 AM SERVICE RIG OPERATOR DTL Creatinine 1.91(H) 0.59 - 1.04 mg/dL 09/27/2023 8:36 AM SERVICE RIG OPERATOR DTL Estimated GFR (eGFR) 29(L) >=60 mL/min/BS A 09/27/2023 8:36 AM SERVICE RIG OPERATOR DTL Comment: Estimated GFR calculated using the 2020 CKD_EPI creatinine equation. Calcium, Total, S 10.1 8.8 - 10.2 mg/dL 09/27/2023 8:36 AM SERVICE RIG OPERATOR DTL Glucose, S 104 70 - 140 mg/dL 09/27/2023 8:36 AM SERVICE RIG OPERATOR DTL Protein, Total, S 6.4 6.3 - 7.9 g/dL 09/27/2023 8:36 AM SERVICE RIG OPERATOR DTL Albumin, S 4.4 3.5 - 5.0 g/dL 09/27/2023 8:36 AM SERVICE RIG OPERATOR DTL Aspartate Aminotransferase (AST), S 20 8 - 43 U/L 09/27/2023 8:36 AM SERVICE RIG OPERATOR DTL Alkaline Phosphatase, S 99 35 - 104 U/L 09/27/2023 8:36 AM SERVICE RIG OPERATOR DTL Alanine Aminotransferase (ALT), S 18 7 - 45 U/L 09/27/2023 8:36 AM SERVICE RIG OPERATOR DTL Bilirubin, Total, S 0.4 0.0 - 1.2 mg/dL 09/27/2023 8:36 AM SERVICE RIG OPERATOR DTL Blood (Blood, Venous) 09/27/2023 7:31 AM SERVICE RIG OPERATOR 09/27/2023 8:04 AM SERVICE RIG OPERATOR Soraya Lu P.A.-C. M.S. LAB BLO OD ADD-ON [facility] [address] [place] [address], [place] DTL [facility] [address] [place] [address] * BI Breast Screening Bilateral with Tomosynthesis (04/25/2023 9:47 AM CDT) Anatomical Region Laterality Modality Breast, Breast Imaging RST L OS, Breast Imaging ARZ LOS, Breast Imaging FLA LOS Bilateral Mammography 04/25/2023 1:53 PM CDT Impressions 04/25/2023 1:57 PM CDT Negative. RECOMMENDATION: ??Annual Screening Mammogram ASSESSMENT: ??BI-RADS: 1: Negative. Narrative 04/25/2023 1:57 PM CDT EXAM: ??BI BREAST SCREENING BILATERAL WITH TOMOSYNTHESIS Current study was evaluated with a Computer Aided Detection (CAD) system. INDICATION: ??Screening mammogram. COMPARISON: ??Prior exam(s) were available and reviewed for comparison. DENSITY: ??b. There are scattered areas of fibroglandular density. FINDINGS: ??No findings of malignancy. ??No significant change since prior exam. Procedure Note German Vazquez M.D. - 04/25/2023 EXAM: BI BREAST SCREENING BILATERAL WITH TOMOSYNTHESIS Current study was evaluated with a Computer Aided Detection (CAD) system. INDICATION: Screening mammogram. COMPARISON: Prior exam(s) were available and reviewed for comparison. DENSITY: b. There are scattered areas of fibroglandular density. FINDINGS: No findings of malignancy. No significant change since priorexam. IMPRESSION: Negative. RECOMMENDATION: Annual Screening Mammogram ASSESSMENT: BI-RADS: 1: Negative. Christel Evans M.D. [facility] BI PROCEDUR ES * Colonoscopy (09/14/2017 8:06 AM SERVICE RIG OPERATOR) 09/14/2017 8:06 AM SERVICE RIG OPERATOR Lobo Ocampo M.D. GI PROCEDURE ORDERAB LES HX AFIA CONVERSION from Last 3 Months or Most Recently Relevant to Health Maintenance Additional Health Concerns Infection Onset Date Last Indicated Protective Environment 11/24/2022 3 Advance Directives For more information, please contact: [phone] * Full Code (Latest Code Status on File) Date Activated Date Inactivated Comments 07/31/2022 4:06 PM 08/01/2022 2:51 PM Question Answer Comments Full Code: Not Discussed Due to: Patient not available * Full Code Date Activated Date Inactivated Comments 04/07/2022 3:05 AM 04/09/2022 6:38 PM Question Answer Comments Full Code: Discussed * Full Code Date Activated Date Inactivated Comments 04/06/2022 2:52 PM 04/07/2022 3:05 AM Question Answer Comments Full Code: Discussed * Full Code Date Activated Date Inactivated Comments 02/14/2022 10:04 AM 02/14/2022 6:32 PM Question Answer Comments Full Code: Discussed * Full Code Date Activated Date Inactivated Comments 09/15/2019 1:43 PM 09/19/2019 4:08 PM Question Answer Comments Full Code: Discussed Care Teams Parts Casting 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
--- OUTSIDE RECORDS SUMMARY | 2024-03-11 10:49 | XMS_ITS | Referral Summary ---
Author Organization [facility] Address [address] [place] [address] Care Team Providers Care Edger Automatic Name Role Phone Elsewhere, Pcp Primary Care Provider Unavailabl e Source Comments Patient records contain information from all sites at [facility]. For routine questions regarding patient records, call [phone] during business hours, M-F 8:00 AM - 5:00 PM Central Time. Record requests for emergency care only can be directed to [phone] at any time.[facility] Encounters Date Type Department Care Team Description 03/10/2024 7:21 AM CDT - 03/10/2024 11:59 PM CDT Hospital Encounter Department of Laboratory Medicine in [address] [phone] Soraya Lu P.A.-C., M.S. Transplant Renal (HCC); Immunodeficiency Due To Drugs (HCC); Medication Therapy Hydraulic Repairer Not Anticoagulant Discharge Disposition: Home or Self Care 03/10/2024 7:21 AM CDT - 03/10/2024 11:59 PM CDT Hospital Encounter Department of Laboratory Medicine in [address] [phone] Soraya Lu P.A.-C., M.S. Transplant Renal (HCC); Immunodeficiency Due To Drugs (HCC); Medication Therapy [facility] Not Anticoagulant Discharge Disposition: Home or Self Care 02/15/2024 Clinical Communication [facility] in [place] [address] [address] [place] [address] Lola Rios R.N. Tacrolimus Adjustment Protocol 02/11/2024 7:15 AM CDT - 02/11/2024 11:59 PM CDT Hospital Encounter Department of Laboratory Medicine in [address] [phone] Soraya Lu P.Josué.-C., M.S. Transplant Renal (HCC); Immunodeficiency Due To Drugs (HCC); Medication Therapy [facility] Not Anticoagulant Discharge Disposition: Home or Self Care 02/11/2024 7:15 AM CDT - 02/11/2024 11:59 PM CDT Hospital Encounter Department of Laboratory Medicine in [address] [phone] Soraya Lu P.Josué.-C., M.S. Transplant Renal (HCC); Immunodeficiency Due To Drugs (HCC); Medication Therapy Hydraulic Repairer Not Anticoagulant Discharge Disposition: Home or Self Care 02/08/2024 9:01 AM CDT Hospital Encounter Department of Radiology in [address] [phone] Steve Martínez Jr., D.O. Chronic Kidney Disease [...] CDT Hospital Encounter Department of Radiology in [address] [phone] Steve Martínez Jr., D.O. Chronic Kidney Disease [...] Outreach Division of Nephrology and Hypertension in [place], [place] [address] [place] [phone] Steve Martínez Jr., D.O. Chronic Kidney Disease (CKD), Stage 3b Glomerular Filtration Rate (GFR) 30 To 44 (HCC) (Primary Dx); Hypertensive Chronic Kidney Disease (CKD) Stage 3b Glomerular Filtration Rate (GFR) 30 To 44; Diabetes Mellitus Type 2 (HCC); Hyperparathyroidism Renal Secondary (HCC); Transplant Renal (HCC); Immunodeficiency (HCC); Pain Back Lumbar 01/17/2024 Refill Division of Nephrology and Hypertension in [place], [place] [address] [place] [phone] Steve Martínez Jr., D.O. Med Refill 01/11/2024 Clinical Communication [facility] for Transplantation and Clinical Regeneration in [place], [place] [address] [place] [phone] Yari Zaidi RDaviN. Tacrolimus Adjustment Protocol 01/09/2024 7:22 AM CDT - 01/09/2024 11:59 PM CDT Hospital Encounter Department of Laboratory Medicine in [address] [phone] Soraya Lu P.A.-C., M.S. Transplant Renal (HCC); Immunodeficiency Due To Drugs (HCC); Medication Therapy [facility] Not Anticoagulant Discharge Disposition: Home or Self Care 01/09/2024 7:22 AM CDT - 01/09/2024 11:59 PM CDT Hospital Encounter Department of Laboratory Medicine in [address] [address] Soraya Lu P.A.-Fracisco., M.S. Transplant Renal (HCC); Immunodeficiency Due To Drugs (HCC); Medication Therapy Hydraulic Repairer Not Anticoagulant Discharge Disposition: Home or Self Care from Last 3 Months Allergies Active Allergy Reactions Criticality Noted Date [...] mg capsuleIndications :Immunodeficiency (HCC),Transplant Renal (HCC),Medication Therapy Hydraulic Repairer Not Anticoagulant Take 2 capsules (500 mg [...] COVID-19 Infection 11/26/2020 Ureteral Stent Exchange 09/15/2019 090 02/2022 Obstruction Ureteropelvic 09/08/2019 Overview (09/15/2019): Added automatically from request for surgery [id number] Thombosis Arteriovenous Fistula Initial 05/30/2019 04/02/2023 Failure Renal End Stage 05/06/20190 10/2023 Complication Dialysis Device Subsequent 04/25/2019 04/26/2022 Anticoagulant Therapy 04/25/20192021 Chronic Failure Renal End St age Renal Disease Dialysis Dependent 04/10/2019 04/26/2022 Overview (04/10/2019): Added automatically from request for surgery [id number] Encounter For Fitting And Ad justment Of Extracorporeal Dialysis Catheter 03/10/2019 023 Overview (07/31/2022): Added automatically from request for surgery [id number] Obstruction Ureter 04/03/2018 4 Overview (04/03/2018): Added automatically from request for surgery [id number] Depression Major One Episode Full Remission 09/13/2017 [...] 03/27/2012 04/02/2023 Pretransplant Recipient Evaluation Exam 04/13/2022 Immunizations Name Administration Dates Next Due HepA [...] quad (FLUZONE/FLUARIX) (6 months and older)(PF) 05/31/2019,06/05/2014 Social History Tobacco Use Types Packs/Day Years Used Date Smoking Tobacco: Former Cigarettes 1.5 47 0 01/29/1975 - 01/04/2021 Smokeless Tobacco: Never Alcohol Use Standard Drinks/Week Comments No 0 (1 standard drink = 0.6 oz pur e alcohol) [facility] Utilities Answer Date Recorded In the past 12 months has [employer] gas, oil, or water [employer] threatened to shut off services in your [...] declined 12/23/2021 How often do you attend [facility] or yarsani services? 1 to 4 times per year 12/23/2021 Do you belong to any clubs o r organizations such as denominational groups, unions, fraternal or athletic [...] Answer Date Recorded PHQ-2 Score 2 04/09/2022 [facility] [place] of Occupat ional Health - Occupational Stress [...] your living situation today? I have a [employer] place to live 10/11/2023 Education Answer Date Recorded What is the highest level of school you have completed or the highest degree you have received? GED or equivalent 04/2019 Sex and Gender Information Value Date Recorded Sex Assigned at Female 12/23/2021 4:18 AM CDT Gender Identity Female 04/06/2021 11:42 AM CDT Sexual Orientation Choose not to disclose 2019 7:37 PM INTERNAL COMMUNICATIONS INTERN Last Filed Vital Signs Vital Sign Reading Time Taken Comments Blood Pressure 128/78 01/21/2024 3:05 PM CDT Pulse 80 01/21/2024 2:29 PM CDT Temperature 36.5 ??C (97.7 ??F) 10/09/2023 1:11 PM CS T Respiratory Rate 20 08/01/2022 11:20 AM INTERNAL COMMUNICATIONS INTERN Oxygen Saturation 98% 09/27/2023 3:00 PM INTERNAL COMMUNICATIONS INTERN Inhaled Oxygen Concentration - - Weight 94.9 kg (209 lb 3.5 oz) 01/21/2024 2:29 P M CDT Height 165.1 cm (5' 5) 01/21/2024 2:29 PM CDT Body Mass Index 34.82 01/21/2024 2:29 PM CDT Plan of Treatment Upcoming Encounters Date Type Department Care Team (Late st Contact Info) Description 03/27/2024 8:00 AM CDT Comprehensive Visit Department of Orthopedic Surgery in [place], [place] [address] [place] [phone] Han Milian M.D. [address] [place] [phone] 04/22/2024 7:30 AM CDT Appointment Department of Laboratory Medicine in [address] [phone] Soraya Lu P.A.-Fracisco., M.S. [address] [place] [phone] 04/22/2024 7:40 AM CDT Appointment Department of Laboratory Medicine in [address] [phone] Soraya Lu P.A.-C., M.S. [address] [place] [phone] Medical Devices Implanted Type Area Hse Advisor Device Identifier Shelf Expiration Date Model / Serial / Lot Clp Hrzn Ti 6 [facility] - [id number] Implanted:Qty: 2 on 05/06/2019 by Guillermo Yu M.BDaviB.S. at [facility] Hardware e.g. pins/screws /rods [employer] [id number] / / Clp Lgc Lgt Ti Sm - [id number] Implanted:Qty: 1 on 05/06/2019 by Guillermo Yu M.B.B.SDavi at [facility] Hardware e.g. pins/screws /rods Ethicon [id number] / / Dev Opt-At Ang Tp Abs - [id number] Implanted:Qty: 1 on 02/14/2022 by Cresencio Chen M.D. at [facility] Hardware e.g. pins/screws /rods N/A: Abdomen C.R.Bard 09/16/2023 [id number] / / [id number] Dev Opt-At Ang Tp Abs 15 - [id number] Implanted:Qty: 1 on 02/14/2022 by Cresencio Chen M.D. at [facility] Hardware e.g. pins/screws /rods N/A: Abdomen C.R.Bard 02/14/2023 [id number] / / [id number] Clp Apr [facility] 11.5 - [id number] Implanted:Qty: 1 on 04/06/2022 by Nehemias Felipe M.D. at [facility] Hardware e.g. pins/screws /rods Ethicon [id number] / / Grft Vsc Bov 0.8x8 - [id number] Implanted:Qty: 1 on 05/06/2019 by Guillermo Yu M.B.B.S. at [facility] Mesh or Patch Synovis 11/21/2023 [id number] / / [id number] [facility] [place] Doug Synth 15x20 - [id number] Implanted:Qty: 1 on 02/14/2022 by Cresencio Chen M.D. at [facility] Mesh or Patch N/A: Abdomen C.R.Bard 05/17/2022 [id number] / / [id number] Grft Prp Str 6x40 - [id number] - [id number] Implanted:Qty: 1 on 05/06/2019 by Guillermo Yu M.B.BDaviS. at [facility] Vascular Graft [place] 02/26/2022 [id number] / [id number] / Stnt Viabahn 035 [id number] - [id number] - [id number] Implanted:Qty: 1 on 12/23/2020 by Jatin Mcconnell M.D. at [facility] Vascular Graft [place] 05/05/2023 [id number] / [id number] / Stnt Viabahn Mrk 0.841r2y7 - [id number] - [id number] Implanted:Qty: 1 on 10/25/2018 by Jamin Christianson M.D. at [facility] Vascular Stent [place] 07/10/2021 [id number] / [id number] / Stnt Viabahn 018 [id number] - [id number] - [id number] Implanted:Qty: 1 on 12/15/2020 by Jatin Mcconnell M.D. at [facility] Vascular Stent [place] 07/28/2023 [id number] / [id number] / Explanted Type Area Hse Advisor Device Identifier Shelf Expiration Date Model / Serial / Lot Sprint Endura Pns System Implanted:Qty: 1 on 10/14/2020 by Юлия Painter M.D. at [facility] Explanted:11/19 (Quantity not on file) Stimulator Other Right: Arm Unknown 04/19/2021 [id number] / / [id number] Description:Trial PNS-explan rebecca 12/09/20 Amplatz Ureteral J Stent 8.5 Fr 16 Cm - [place] [id number] Implanted:Qty: 1 on 06/05/2014 Explanted:10/18 (Quantity not on file) Ureteral Stent Ureter [employer] Description:Device Manufactu [facility] - [employer]ytics. Device Status Text - UROLOGY-79043. Amplatz Ureteral J Stent 8.5 Fr 16 Cm - [place] [id number] Implanted:Qty: 1 on 11/05/2014 Explanted:11/20 (Quantity not on file) Ureteral Stent Ureter [employer] Description:Device Manufactu [employer] - [employer]. Device Status Text - UROLOGY-70973. Stent Ureteral Inlay [id number] - Oakes [id number] Implanted:Qty: 1 on 11/05/2014 Explanted:11/20 (Quantity not on file) Ureteral Stent Ureter C.R.Bard Description:Device Manufactu [facility] [employer] [facility]. Device Status Text - UROLOGY-579762. Amplatz Ureteral J Stent 8.5 Fr 16 Cm - [place] [id number] Implanted:Qty: 1 on 09/11/2016 Explanted:11/19 (Quantity not on file) Ureteral Stent Ureter [employer] Description:Device Manufactu [employer] - [employer]. Device Status Text - UROLOGY-67852. Stent Inlay 8fr X 20cm - Oakes [id number] Implanted:Qty: 1 on 12/14/2016 Explanted:Qty: 1 on 05/14/2018 by Teersa Antonio M.D. at [facility] Ureteral Stent C.R.Bard Description:Device Manufactu [employer] [facility]. Device Status Text - UROLOGY-391389. MARCELO Data - [id number]. Stent Inlay 8fr X 20cm - Oakes [id number] Implanted:Qty: 1 on 06/12/2017 Explanted:02/2019 (Quantity not on file) Ureteral Stent Ureter C.R.Bard Description:Device Manufactu [employer] [facility]. Device Status Text - UROLOGY-853258. MARCELO Data - [id number]. Stnt Uret Inl 8fx20 - [id number] Implanted:Qty: 1 Explanted:Qty: 1 on 09/05/2018 at [facility] Ureteral Stent Right: Ureter C.R.Bard [id number] / / [id number] Stnt Uret Inl 8fx20 - [id number] Implanted:Qty: 1 on 05/14/2018 by Teresa Antonio M.D. at [facility] Explanted:Qty: 1 on 09/05/2018 by Vicente Robledo M.D. at [facility] Ureteral Stent Right: Ureter C.R.Bard [id number] 09/30/2020 [id number] / / [id number] Stnt Uret Inl 8fx20 - [id number] Implanted:Qty: 1 on 12/26/2018 by Shanon Benjamin M.D. at [facility] Explanted:Qty: 1 Ureteral Stent C.R.Bard [id number] 09/30/2020 [id number] / / [id number] Stent Inlay 8fr X 20cm - Oakes [id number] Implanted:Qty: 1 on 12/17/2014 Explanted:Qty: 1 on 12/26/2018 by Shanon Benjamin M.D. at [facility] Ureteral Stent C.R.Bard Description:Device Manufactu [facility] - [employer] Patient Care [facility]. Device Status Text - UROLOGY-009797. MARCELO Data - [id number]. 12-26-2018 removed 8x20 stent from the right ureter Stnt Uret Inl 8fx20 - [id number] Implanted:Qty: 1 on 09/05/2018 by Vicente Robledo M.D. at [facility] Explanted:Qty: 1 on 09/16/2019 by Geraldo Salinas M.D. at [facility] Ureteral Stent Right: Ureter C.R.Bard [id number] 09/30/2020 [id number] / / [id number] Stent Inlay 8fr X 20cm - Oakes [id number] Implanted:Qty: 1 on 09/05/2017 Explanted:060 11/2019 (Quantity not on file) Ureteral Stent Ureter C.R.Bard Description:Device Manufactu [facility] [employer] Patient [facility]. Device Status Text - UROLOGY-183177. MARCELO Data - [id number]. Stnt Uret Inl 8fx20 - [id number] Implanted:Qty: 1 on 09/16/2019 by Geraldo Salinas M.D. at [facility] Explanted:Qty: 1 on 12/16/2020 by Elena Melgar M.D. at [facility] Ureteral Stent Right: Ureter C.R.Bard [id number] 09/30/2020 [id number] / / [id number] Stnt Uret Inl 8fx20 - [id number] - [id number] Implanted:Qty: 1 on 01/22/2020 by Beck Galarza M.D. at [facility] Explanted:11/19 (Quantity not on file) Ureteral Stent C.R.Bard 01/26/2023 [id number] / [id number] / [id number] Description:Right allograft kidney ureter Stnt Uret W/O Gw Imj 8fx20 - [id number] Implanted:Qty: 1 on 12/16/2020 by Geraldo Spear M.D. at [facility] Explanted:Qty: 1 on 01/05/2022 by Tanvir Young M.D. at [facility] Ureteral Stent Right: Ureter Coloplast [id number] 06/26/2021 [id number] / [id number] Stnt Uret W/O Gw Imj 8fx20 - [id number] Implanted:Qty: 1 on 01/05/2022 by Tanvir Young M.D. at [facility] Explanted:Qty: 1 on 04/27/2022 Ureteral Stent Right: Ureter Coloplast [id number] 10/20/2022 [facility] / / [id number] Stnt Uret Cls Tp Dbl 7fx16 - [id number] Implanted:Qty: 1 on 04/06/2022 by Nehemias Felipe M.D. 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 Therapy [facility] Not Anticoagulant GLUCOSE, FASTING, S/P Routine 03/10/2024 7:35 AM CDT 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 Therapy [facility] Not Anticoagulant POTASSIUM, S/P Routine 03/10/2024 7:35 AM CDT 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 Therapy Hydraulic Repairer Not Anticoagulant CREATININE WITH EGFR, S/P Routine 03/10/2024 7:35 AM CDT 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 Therapy [facility] Not Anticoagulant CBC WITH DIFFERENTIAL, B Routine 03/10/2024 7:35 AM CDT 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 Therapy Hydraulic Repairer Not Anticoagulant ALBUMIN, RANDOM, U Routine 02/11/2024 7:37 AM CDT 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 Therapy Hydraulic Repairer Not Anticoagulant GLUCOSE, FASTING, S/P Routine 02/11/2024 7:26 AM CDT 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 Therapy Hydraulic Repairer Not Anticoagulant POTASSIUM, S/P Routine 02/11/2024 7:25 AM CDT 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 Therapy Hydraulic Repairer Not Anticoagulant CREATININE WITH EGFR, S/P Routine 02/11/2024 7:25 AM CDT 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 Therapy Hydraulic Repairer Not Anticoagulant CBC WITH DIFFERENTIAL, B Routine 02/11/2024 7:25 AM CDT 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 Therapy Hydraulic Repairer Not Anticoagulant TACROLIMUS LEVEL, B Routine 02/11/2024 7:25 AM CDT 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 Therapy [facility] Not Anticoagulant MR LUMBAR SPINE WITHOUT IV [...] Immunodeficiency Due To Drugs (HCC) Medication Therapy Hydraulic Repairer Not Anticoagulant GLUCOSE, FASTING, S/P Routine 01/09/2024 7:31 AM CDT 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 Therapy [facility] Not Anticoagulant POTASSIUM, S/P Routine 01/09/2024 7:30 AM CDT 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 Therapy [facility] Not Anticoagulant CREATININE WITH EGFR, S/P Routine 01/09/2024 7:30 AM CDT 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 Therapy Hydraulic Repairer Not Anticoagulant CBC WITH DIFFERENTIAL, B Routine 01/09/2024 7:30 AM CDT 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 Therapy [facility] Not Anticoagulant TACROLIMUS LEVEL, B Routine 01/09/2024 7:30 AM CDT 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 Therapy [facility] Not Anticoagulant HEMOGLOBIN A1C, B Routine 09/27/2023 7:31 AM INTERNAL COMMUNICATIONS INTERN Transplant Renal (HCC) Diabetes Mellitus Type 2 (HCC) LIPID PANEL, S Routine 09/27/2023 7:31 AM INTERNAL COMMUNICATIONS INTERN Transplant Renal (HCC) COMPREHENSIVE METABOLIC PANEL, S/P Routine 09/27/2023 7:31 AM INTERNAL COMMUNICATIONS INTERN Transplant Renal (HCC) BI BREAST SCREENING BILATERAL WITH TOMOSYNTHESIS RAD - Routine (most inpatients and all outpatients) 04/25/2023 9:47 AM CDT Screening Mammogram Breast Cancer COLONOSCOPY Routine 09/14/2017 8:06 AM INTERNAL COMMUNICATIONS INTERN from Last 3 Months or Most Recently [...] Lu P.A.-C., M.S. LAB URI NE ORDERABLES [facility] [address] [place] [phone], [facility] CNFL [facility] in [address] [address] * (ABNORMAL) CBC with Differential, Blood (03/10/2024 [...] AM CDT 03/10/2024 7:37 AM CDT Soraya uL P.A.-C., M.S. LAB BLO OD ADD-ON [facility] [address] [place] [address], [facility] CNFL [facility] in [address] [address] * Potassium (03/10/2024 7:35 AM CDT) Only the most recent of3 resultswithin the time period is included. Potassium, P 3.6 3.6 - 5.2 mmol/L 03/10/2024 8:14 AM CDT CNFL Blood (Blood, Venous) 03/10/2024 7:35 AM CDT 03/10/2024 7:37 AM CDT Soraya Lu P.A.-C., M.S. LAB BLO OD ADD-ON Performing Organization Address [facility] de Phone Number [address] [address], [facility] CNFL [facility] in [address] [address] * (ABNORMAL) Glucose, Fasting (03/10/2024 7:35 AM CDT) Only the most recent of3 resultswithin the time period is included. Glucose, P 101(H) 70 - 100 mg/dL 03/10/2024 8:11 AM CDT CNFL Last Intake 15 hr 03/10/2024 7:37 AM CDT CNFL Blood (Blood, Venous) 03/10/2024 7:35 AM CDT 03/10/2024 7:37 AM CDT Soraya Lu P.A.-C., M.S. LAB BLO OD NON ADD-ON Performing Organization Address City/[facility] Co de Phone Number [address] [address], [facility] CNFL [facility] in [address] [address] * (ABNORMAL) Creatinine with Estimated GFR (03/10/2024 7:35 AM CDT) Only the most recent of3 resultswithin the time period is included. Creatinine 1.66(H) 0.59 - 1.04 mg/dL 03/10/2024 8:14 AM CDT CNFL Estimated GFR (eGFR) 34(L) >=60 mL/min/BSA 03/10/2024 8:14 AM CDT CNFL Comment: Estimated GFR calculated using the 2020 CKD_EPI creatinine equation. Blood (Blood, Venous) 03/10/2024 7:35 AM CDT 03/10/2024 7:37 AM CDT Soraya Lu P.A.-C. MDaviSDavi LAB BLO OD ADD-ON Performing Organization Address [facility] Co de Phone Number [facility] [address] [place] [phone], [facility] CNFL [facility] [place] [address] * Tacrolimus, Trough (02/11/2024 7:25 AM CDT) Only the most recent of2 resultswithin the time period is included. [facility] Tacrolimus, Trough 5.0 5.0-15.0 (Trough) ng/mL 02/12/2024 9:29 AM CDT [facility] Comment: ----ADDITIONAL INFORMATION---- Target steady-state trough concentrations vary depending on the type of transplant, concomitant immunosuppression, clinical/institutional protocols, and time post-transplant. Results should be interpreted in conjunction with this clinical information and any physical signs/symptoms of rejection/toxicity. Testing performed by Liquid Chromatography-Tandem Mass Spectrometry (LC-MS/MS). This test was developed and its performance characteristics determined by [facility] in a manner consistent with CLIA requirements. This test has not been cleared or approved by the U.S. Food and Drug Administration. Blood (Blood, Venous) 02/11/2024 7:25 AM CDT 02/12/2024 6:51 AM CDT Soraya Lu P.A.-C. MDaviS. LAB BLO OD NON ADD-ON Performing Organization Address City/[facility]/ZIP Co de Phone Number [facility] [address] [place] [address] [facility] [address] [place] [address] [place] [address] * MR Lumbar Spine without IV Contrast (02/08/2024 10:02 AM CDT) Anatomical Region Laterality Modality Lumbar Spine, Neuroradiology RST [facility], Neuroradiology ARZ [facility], Neuroradiology FLA [facility] N/A Magnetic Resonance Impressions 02/08/2024 10:25 AM [...] ??Normal termination Extra-spinal Findings: ??Atrophy of the [place] kidneys with numerous T2 hyperintense lesions favored [...] Normal termination Extra-spinal Findings: Atrophy of the [place] kidneys with numerous T5yxbtnrycgxrh lesions favored to represent cysts which are [...] S1 nerve root. Steve Martínez Jr., D.O. [facility] MRI PROC EDURES * DX Lumbar Spine [...] body height and alignment is otherwise maintained. Smec-ou-jkasbztz degenerative lumbar spondylosis most pronounced at L3-4. [...] Vertebral body height and alignment is otherwise maintained.Hrgy-gt-qvwkixke degenerative lumbar spondylosis most pronounced atL3-4. Atherosclerotic vascular disease. Whitney Rasheed Jr.O. IMG DIAGNOST IC IMAGING PROCEDURES * (ABNORMAL) Lipid Panel (09/27/2023 7:31 AM INTERNAL COMMUNICATIONS INTERN) Triglycerides 179(H) mg/dL 09/27/2023 8:36 AM INTERNAL COMMUNICATIONS INTERN DTL Comment: ----REFERENCE VALUE---- Normal: <150 mg/dL Borderline High: 150-199 mg/dL High: 200-499 mg/dL Very High: > or =500 mg/dL Cholesterol, Total 155 mg/dL 2023 8:36 AM INTERNAL COMMUNICATIONS INTERN DTL Comment: ----REFERENCE VALUE---- Desirable: < 200 mg/dL Borderline High: 200 - 239 mg/dL High: > or = 240 mg/dL Cholesterol, LDL, Calculated 79 mg/dL 09/27/2023 8:36 AM INTERNAL COMMUNICATIONS INTERN DTL Comment: ----REFERENCE VALUE---- Desirable: <100 mg/dL Above Desirable: 100-129 mg/dL Borderline High: 130-159 mg/dL High: 160-189 mg/dL Very High: >=190 mg/dL ----ADDITIONAL INFORMATION---- LDL cholesterol calculated using the Smith/NIH equation. Cholesterol, HDL, S 46(L) >=50 mg/dL 09/27/2023 8:36 AM INTERNAL COMMUNICATIONS INTERN DTL Cholesterol, Non-HDL, Calculated 109 mg/dL 09/27/2023 8:36 AM INTERNAL COMMUNICATIONS INTERN DTL Comment: ----REFERENCE VALUE---- Desirable: <130 mg/dL Above Desirable: 130-159 mg/dL Borderline High: 160-189 mg/dL High: 190-219 mg/dL Very High: > or =220 mg/dL Fasting (8 HR or more) Unknown 09/27/2023 8:04 AM INTERNAL COMMUNICATIONS INTERN DTL Blood (Blood, Venous) 09/27/2023 7:31 AM INTERNAL COMMUNICATIONS INTERN 09/27/2023 8:04 AM INTERNAL COMMUNICATIONS INTERN Soraya Lu P.A.-C., M.S. LAB BLO OD ADD-ON Performing Organization Address City/[facility] Co de Phone Number [facility] [address] [place] [address], [facility] [address] [place] [address] * (ABNORMAL) Hemoglobin A1c (09/27/2023 7:31 AM INTERNAL COMMUNICATIONS INTERN) Hemoglobin A1c, B 5.8(H) 4.0 - 5.6 % 09/27/2023 8:48 AM INTERNAL COMMUNICATIONS INTERN DTL Comment: Hemoglobin A1c values of 5.7-6.4 percent indicate an increased risk for developing diabetes mellitus. In diabetic patients, HbA1c goals should be discussed with healthcare provider. Blood (Blood, Venous) 09/27/2023 7:31 AM INTERNAL COMMUNICATIONS INTERN 09/27/2023 7:43 AM INTERNAL COMMUNICATIONS INTERN Soraya Lu P.A.-C., M.S. LAB BLO OD ADD-ON Performing Organization Address [facility] Co de Phone Number [facility] [address] [place] [address], [facility] DTL [facility] [address] [place] [address] * (ABNORMAL) Comprehensive Metabolic Panel (09/27/2023 7:31 AM INTERNAL COMMUNICATIONS INTERN) Potassium, S 3.7 3.6 - 5.2 mmol/L 09/27/2023 8:36 AM INTERNAL COMMUNICATIONS INTERN DTL Sodium, S 143 135 - 145 mmol/L 09/27/2023 8:36 AM INTERNAL COMMUNICATIONS INTERN DTL Chloride, S 106 98 - 107 mmol/L 09/27/2023 8:36 AM INTERNAL COMMUNICATIONS INTERN DTL Bicarbonate, S 24 22 - 29 mmol/L 09/27/2023 8:36 AM INTERNAL COMMUNICATIONS INTERN DTL Anion Gap 13 7 - 15 09/27/2023 8:36 AM INTERNAL COMMUNICATIONS INTERN DTL BUN (Blood Urea Nitrogen), S 19 6 - 21 mg/dL 09/27/2023 8:36 AM INTERNAL COMMUNICATIONS INTERN DTL Creatinine 1.91(H) 0.59 - 1.04 mg/dL 09/27/2023 8:36 AM INTERNAL COMMUNICATIONS INTERN DTL Estimated GFR (eGFR) 29(L) >=60 mL/min/BS A 09/27/2023 8:36 AM INTERNAL COMMUNICATIONS INTERN DTL Comment: Estimated GFR calculated using the 2020 CKD_EPI creatinine equation. Calcium, Total, S 10.1 8.8 - 10.2 mg/dL 09/27/2023 8:36 AM INTERNAL COMMUNICATIONS INTERN DTL Glucose, S 104 70 - 140 mg/dL 09/27/2023 8:36 AM INTERNAL COMMUNICATIONS INTERN DTL Protein, Total, S 6.4 6.3 - 7.9 g/dL 09/27/2023 8:36 AM INTERNAL COMMUNICATIONS INTERN DTL Albumin, S 4.4 3.5 - 5.0 g/dL 09/27/2023 8:36 AM INTERNAL COMMUNICATIONS INTERN DTL Aspartate Aminotransferase (AST), S 20 8 - 43 U/L 09/27/2023 8:36 AM INTERNAL COMMUNICATIONS INTERN DTL Alkaline Phosphatase, S 99 35 - 104 U/L 09/27/2023 8:36 AM INTERNAL COMMUNICATIONS INTERN DTL Alanine Aminotransferase (ALT), S 18 7 - 45 U/L 09/27/2023 8:36 AM INTERNAL COMMUNICATIONS INTERN DTL Bilirubin, Total, S 0.4 0.0 - 1.2 mg/dL 09/27/2023 8:36 AM INTERNAL COMMUNICATIONS INTERN DTL Blood (Blood, Venous) 09/27/2023 7:31 AM INTERNAL COMMUNICATIONS INTERN 09/27/2023 8:04 AM INTERNAL COMMUNICATIONS INTERN Soraya Lu P.A.-C., M.S. LAB BLO OD ADD-ON [facility] [address] [place] [address], [facility] DTL [facility] [address] [place] [address] * BI Breast Screening Bilateral with Tomosynthesis [...] ASSESSMENT: BI-RADS: 1: Negative. Christel Evans M.D. IMG BI PROCEDUR ES * Colonoscopy (09/14/2017 8:06 AM INTERNAL COMMUNICATIONS INTERN) 09/14/2017 8:06 AM INTERNAL COMMUNICATIONS INTERN Lobo Ocampo M.D. GI PROCEDURE ORDERAB LES HX AFIA CONVERSION from Last 3 Months or Most Recently Relevant to Health Maintenance Additional Health Concerns Infection Onset Date Last Indicated Protective Environment 11/24/2022 3 Advance Directives For more information, please contact: [phone] * Full Code (Latest Code Status on [...] Answer Comments Full Code: Discussed Care Teams Edger Automatic Relationship Specialty Start Date End Date Elsewhere, Pcp PCP - General 09/17/19 [facility] External Provider Laboratory Medicine 04/25/22
--- OUTSIDE RECORDS SUMMARY | 2024-03-11 10:49 | XMS_ITS | Referral Summary ---
Author Organization [facility] Address [address] [place] [address] Care Team Providers Care Manager Of Maintenance Name Role Phone Tanya Steve Primary Care Provider [phone] Allergies Active Allergy Reactions Criticality Noted Date [...] of Treatment Not on file Care Teams Manager Of Maintenance Relationship Specialty Start Date End Date Steve Martínez DO [facility] [address] [place] [address] PCP - General Nephrology 05/09/13
--- OUTSIDE RECORDS SUMMARY | 2024-03-11 10:49 | XMS_ITS ---
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 Therapy Society Editor Not Anticoagulant POTASSIUM, S/P Routine 03/10/2024 7:35 AM CDT 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 Therapy Society Editor Not Anticoagulant CREATININE WITH EGFR, S/P Routine 03/10/2024 7:35 AM CDT 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 Therapy Society Editor Not Anticoagulant CBC WITH DIFFERENTIAL, B Routine 03/10/2024 7:35 AM CDT 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 Therapy Society Editor Not Anticoagulant ALBUMIN, RANDOM, U Routine 02/11/2024 7:37 AM CDT 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 Therapy Skilled Nursing Not Anticoagulant GLUCOSE, FASTING, S/P Routine 02/11/2024 7:26 AM CDT 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 Therapy Skilled Nursing Not Anticoagulant POTASSIUM, S/P Routine 02/11/2024 7:25 AM CDT 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 Therapy Skilled Nursing Not Anticoagulant CREATININE WITH EGFR, S/P Routine 02/11/2024 7:25 AM CDT 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 Therapy Skilled Nursing Not Anticoagulant CBC WITH DIFFERENTIAL, B Routine 02/11/2024 7:25 AM CDT 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 Therapy Skilled Nursing Not Anticoagulant TACROLIMUS LEVEL, B Routine 02/11/2024 7:25 AM CDT 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 Therapy Society Editor Not Anticoagulant MR LUMBAR SPINE WITHOUT IV [...] Immunodeficiency Due To Drugs (HCC) Medication Therapy Society Editor Not Anticoagulant GLUCOSE, FASTING, S/P Routine 01/09/2024 7:31 AM CDT 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 Therapy Skilled Nursing Not Anticoagulant POTASSIUM, S/P Routine 01/09/2024 7:30 AM CDT 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 Therapy Society Editor Not Anticoagulant CREATININE WITH EGFR, S/P Routine 01/09/2024 7:30 AM CDT 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 Therapy Skilled Nursing Not Anticoagulant CBC WITH DIFFERENTIAL, B Routine 01/09/2024 7:30 AM CDT 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 Therapy Society Editor Not Anticoagulant TACROLIMUS LEVEL, B Routine 01/09/2024 7:30 AM CDT 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 Therapy Skilled Nursing Not Anticoagulant HEMOGLOBIN A1C, B Routine 09/27/2023 7:31 AM DELICATESSEN STORE MANAGER Transplant Renal (HCC) Diabetes Mellitus Type 2 (HCC) LIPID PANEL, S Routine 09/27/2023 7:31 AM DELICATESSEN STORE MANAGER Transplant Renal (HCC) COMPREHENSIVE METABOLIC PANEL, S/P Routine 09/27/2023 7:31 AM DELICATESSEN STORE MANAGER Transplant Renal (HCC) BI BREAST SCREENING BILATERAL WITH TOMOSYNTHESIS RAD - Routine (most inpatients and all outpatients) 04/25/2023 9:47 AM CDT Screening Mammogram Breast Cancer COLONOSCOPY Routine 09/14/2017 8:06 AM DELICATESSEN STORE MANAGER from Last 3 Months or Most Recently Relevant to Health Maintenance Allergies Active Allergy Reactions Criticality Noted Date [...] mg capsuleIndications :Immunodeficiency (HCC),Transplant Renal (HCC),Medication Therapy Society Editor Not Anticoagulant Take 2 capsules (500 mg [...] Renal 03/27/2012 Diabetes Mellitus Type 2 03/27/2012 Immunizations Name Administration Dates Next Due [...] drink = 0.6 oz pur e alcohol) [facility] Utilities Answer Date Recorded In the past 12 months has [employer], gas, oil, or water [employer] threatened to shut off services in your [...] 12/23/2021 How often do you attend chur or yazidi services? 1 to 4 times per year 12/23/2021 Do you belong to any clubs o r organizations such as roman catholic groups, unions, fraternal or [...] Answer Date Recorded PHQ-2 Score 2 04/09/2022 [facility] - Occupational Stress [...] your living situation today? I have a [facility] place to live 10/11/2023 Education Answer Date Recorded What is the highest level of school you have completed or the highest degree you have received? GED or equivalent 04/2019 Sex and Gender Information Value Date Recorded Sex Assigned at Female 12/23/2021 4:18 AM CDT Gender Identity Female 04/06/2021 11:42 AM CDT Sexual Orientation Choose not to disclose 2019 7:37 PM DELICATESSEN STORE MANAGER Last Filed Vital Signs Vital Sign Reading Time Taken Comments Blood Pressure 128/78 01/21/2024 3:05 PM CDT Pulse 80 01/21/2024 2:29 PM CDT Temperature 36.5 ??C (97.7 ??F) 10/09/2023 1:11 PM CS T Respiratory Rate 20 08/01/2022 11:20 AM DELICATESSEN STORE MANAGER Oxygen Saturation 98% 09/27/2023 3:00 PM DELICATESSEN STORE MANAGER Inhaled Oxygen Concentration - - Weight 94.9 kg (209 lb 3.5 oz) 01/21/2024 2:29 P M CDT Height 165.1 cm (5' 5) 01/21/2024 2:29 PM CDT Body Mass Index 34.82 01/21/2024 2:29 PM CDT Results * Albumin, Random, Urine (03/10/2024 7:39 [...] Lu P.A.-C., M.S. LAB URI NE ORDERABLES Performing Organization Address City/State/[facility] Co de Phone Number [facility] [address] [place] [address], [facility] CNFL [facility] [place] [address] * (ABNORMAL) CBC with Differential, Blood (03/10/2024 [...] Lu P.A.-C., M.S. LAB BLO OD ADD-ON [facility] [address] [place] [address], [facility] [place] [address] * Potassium (03/10/2024 7:35 AM CDT) Only the most recent of3 resultswithin the time period is included. Potassium, P 3.6 3.6 - 5.2 mmol/L 03/10/2024 8:14 AM CDT CNFL Blood (Blood, Venous) 03/10/2024 7:35 AM CDT 03/10/2024 7:37 AM CDT Soraya Lu P.A.-C., M.S. LAB BLO OD ADD-ON [address] [address], [facility] [address] [address] * (ABNORMAL) Glucose, Fasting (03/10/2024 7:35 AM CDT) Only the most recent of3 resultswithin the time period is included. Glucose, P 101(H) 70 - 100 mg/dL 03/10/2024 8:11 AM CDT CNFL Last Intake 15 hr 03/10/2024 7:37 AM CDT CNFL Blood (Blood, Venous) 03/10/2024 7:35 AM CDT 03/10/2024 7:37 AM CDT Soraya Lu P.A.-C., M.S. LAB BLO OD NON ADD-ON Performing Organization Address City/[facility] Co de Phone Number [address] [address], [facility] [address] [address] * (ABNORMAL) Creatinine with Estimated GFR (03/10/2024 [...] Lu P.A.-C., M.S. LAB BLO OD ADD-ON [address] [place] [address], [facility] CNFL [facility] in [address] [address] * Tacrolimus, Trough (02/11/2024 7:25 AM CDT) Only the most recent of2 resultswithin the time period is included. Tacrolimus, Trough 5.0 5.0-15.0 (Trough) ng/mL 02/12/2024 9:29 AM CDT [facility] Comment: ----ADDITIONAL INFORMATION---- Target steady-state trough concentrations vary depending on the type of transplant, concomitant immunosuppression, clinical/institutional protocols, and time post-transplant. Results should be interpreted in conjunction with this clinical information and any physical signs/symptoms of rejection/toxicity. Testing performed by Liquid Chromatography-Tandem Mass Spectrometry (LC-MS/MS). This test was developed and its performance characteristics determined by [facility] in a manner consistent with CLIA requirements. This test has not been cleared or approved by the U.S. Food and Drug Administration. Blood (Blood, Venous) 02/11/2024 7:25 AM CDT 02/12/2024 6:51 AM CDT Soraya Lu P.A.-C., M.S. LAB BLO OD NON ADD-ON Performing Organization Address City/State/[facility] Co de Phone Number [facility] [address] [place] [address] [facility] [address] [place] [address] [place] [address] * MR Lumbar Spine without IV Contrast [...] ??Normal termination Extra-spinal Findings: ??Atrophy of the [place] kidneys with numerous T2 hyperintense lesions favored [...] Normal termination Extra-spinal Findings: Atrophy of the [place] kidneys with numerous [id number] lesions favored to represent cysts which are [...] mass effect onthe traversing S1 nerve root. Whitney Rasheed Jr.O. [facility] MRI PROC EDURES * DX Lumbar Spine [...] body height and alignment is otherwise maintained. [id number] degenerative lumbar spondylosis most pronounced at L3-4. [...] Vertebral body height and alignment is otherwise maintained.Tzrq-ly-[id number] degenerative lumbar spondylosis most pronounced atL3-4. Atherosclerotic vascular disease. Whitney Rasheed Jr.O. IMG DIAGNOST IC IMAGING PROCEDURES * (ABNORMAL) Lipid Panel (09/27/2023 7:31 AM DELICATESSEN STORE MANAGER) Triglycerides 179(H) mg/dL 09/27/2023 8:36 AM DELICATESSEN STORE MANAGER DTL Comment: ----REFERENCE VALUE---- Normal: <150 mg/dL Borderline High: 150-199 mg/dL High: 200-499 mg/dL Very High: > or =500 mg/dL Cholesterol, Total 155 mg/dL 2023 8:36 AM DELICATESSEN STORE MANAGER DTL Comment: ----REFERENCE VALUE---- Desirable: < 200 mg/dL Borderline High: 200 - 239 mg/dL High: > or = 240 mg/dL Cholesterol, LDL, Calculated 79 mg/dL 09/27/2023 8:36 AM DELICATESSEN STORE MANAGER DTL Comment: ----REFERENCE VALUE---- Desirable: <100 mg/dL Above Desirable: 100-129 mg/dL Borderline High: 130-159 mg/dL High: 160-189 mg/dL Very High: >=190 mg/dL ----ADDITIONAL INFORMATION---- LDL cholesterol calculated using the Smith/NIH equation. Cholesterol, HDL, S 46(L) >=50 mg/dL 09/27/2023 8:36 AM DELICATESSEN STORE MANAGER DTL Cholesterol, Non-HDL, Calculated 109 mg/dL 09/27/2023 8:36 AM DELICATESSEN STORE MANAGER DTL Comment: ----REFERENCE VALUE---- Desirable: <130 mg/dL Above Desirable: 130-159 mg/dL Borderline High: 160-189 mg/dL High: 190-219 mg/dL Very High: > or =220 mg/dL Fasting (8 HR or more) Unknown 09/27/2023 8:04 AM DELICATESSEN STORE MANAGER DTL Blood (Blood, Venous) 09/27/2023 7:31 AM DELICATESSEN STORE MANAGER 09/27/2023 8:04 AM DELICATESSEN STORE MANAGER Soraya Lu P.A.-C., M.S. LAB BLO OD ADD-ON [facility] [address] [place], [place] [address] [address] [place] [address] * (ABNORMAL) Hemoglobin A1c (09/27/2023 7:31 AM DELICATESSEN STORE MANAGER) Pathologist [facility] Hemoglobin A1c, B 5.8(H) 4.0 - 5.6 % 09/27/2023 8:48 AM DELICATESSEN STORE MANAGER DTL Comment: Hemoglobin A1c values of 5.7-6.4 percent indicate an increased risk for developing diabetes mellitus. In diabetic patients, HbA1c goals should be discussed with healthcare provider. Blood (Blood, Venous) 09/27/2023 7:31 AM DELICATESSEN STORE MANAGER 09/27/2023 7:43 AM DELICATESSEN STORE MANAGER Soraya Lu P.A.-C., M.S. LAB BLO OD ADD-ON [facility] [address] [place], [place] [address] [address] [place] [address] * (ABNORMAL) Comprehensive Metabolic Panel (09/27/2023 7:31 AM DELICATESSEN STORE MANAGER) [facility] Potassium, S 3.7 3.6 - 5.2 mmol/L 09/27/2023 8:36 AM DELICATESSEN STORE MANAGER DTL Sodium, S 143 135 - 145 mmol/L 09/27/2023 8:36 AM DELICATESSEN STORE MANAGER DTL Chloride, S 106 98 - 107 mmol/L 09/27/2023 8:36 AM DELICATESSEN STORE MANAGER DTL Bicarbonate, S 24 22 - 29 mmol/L 09/27/2023 8:36 AM DELICATESSEN STORE MANAGER DTL Anion Gap 13 7 - 15 09/27/2023 8:36 AM DELICATESSEN STORE MANAGER DTL BUN (Blood Urea Nitrogen), S 19 6 - 21 mg/dL 09/27/2023 8:36 AM DELICATESSEN STORE MANAGER DTL Creatinine 1.91(H) 0.59 - 1.04 mg/dL 09/27/2023 8:36 AM DELICATESSEN STORE MANAGER DTL Estimated GFR (eGFR) 29(L) >=60 mL/min/BS A 09/27/2023 8:36 AM DELICATESSEN STORE MANAGER DTL Comment: Estimated GFR calculated using the 2020 CKD_EPI creatinine equation. Calcium, Total, S 10.1 8.8 - 10.2 mg/dL 09/27/2023 8:36 AM DELICATESSEN STORE MANAGER DTL Glucose, S 104 70 - 140 mg/dL 09/27/2023 8:36 AM DELICATESSEN STORE MANAGER DTL Protein, Total, S 6.4 6.3 - 7.9 g/dL 09/27/2023 8:36 AM DELICATESSEN STORE MANAGER DTL Albumin, S 4.4 3.5 - 5.0 g/dL 09/27/2023 8:36 AM DELICATESSEN STORE MANAGER DTL Aspartate Aminotransferase (AST), S 20 8 - 43 U/L 09/27/2023 8:36 AM DELICATESSEN STORE MANAGER DTL Alkaline Phosphatase, S 99 35 - 104 U/L 09/27/2023 8:36 AM DELICATESSEN STORE MANAGER DTL Alanine Aminotransferase (ALT), S 18 7 - 45 U/L 09/27/2023 8:36 AM DELICATESSEN STORE MANAGER DTL Bilirubin, Total, S 0.4 0.0 - 1.2 mg/dL 09/27/2023 8:36 AM DELICATESSEN STORE MANAGER DTL Blood (Blood, Venous) 09/27/2023 7:31 AM DELICATESSEN STORE MANAGER 09/27/2023 8:04 AM DELICATESSEN STORE MANAGER Soraya Lu P.A.-C., M.S. LAB BLO OD ADD-ON [facility] [address] [place] [address], [facility] [address] [place] [address] * BI Breast Screening Bilateral with Tomosynthesis [...] PROCEDUR ES * Colonoscopy (09/14/2017 8:06 AM DELICATESSEN STORE MANAGER) 09/14/2017 8:06 AM DELICATESSEN STORE MANAGER Lobo Ocampo M.D. GI PROCEDURE ORDERAB LES [facility] CONVERSION from Last 3 Months or Most Recently Relevant to Health Maintenance
--- OUTSIDE RECORDS SUMMARY | 2024-03-11 10:49 | XMS_ITS ---
Author Organization [facility] Address [address] [place] [address] Care Team Providers Care Automotive Sales Specialist Name Role Phone Unavailable Unavailable Unavailable Surgery Details Not on file Complications Check Surgery Details section. Procedure Estimated Blood Loss Check Surgery Details section. Procedure Findings Check Surgery Details section. Procedure Specimens Taken Check Surgery Details section.
--- OUTSIDE RECORDS SUMMARY | 2024-03-11 10:50 | XMS_ITS | Encounter Summary ---
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 Region Referral ID Status Reason Start Date Expiration Date Visits Re quested Visits Authorized [id number] Closed 01/21/2024 01/20/2025 1 1 Encounter Details Date Type Department Care Team (Latest Contact Info) Description 02/08/2024 9:02 AM CDT - 02/08/2024 11:59 PM CDT Hospital Encounter Department of Radiology in [address] [phone] Steve Martínez Jr., D.O. [address] [place] [address] Chronic Kidney Disease (CKD), Stage 3b Glomerular Filtration Rate (GFR) 30 To 44 (HCC); Hypertensive Chronic Kidney Disease (CKD) Stage 3b Glomerular Filtration Rate (GFR) 30 To 44; Diabetes Mellitus Type 2 (HCC); Hyperparathyroidism Renal Secondary (HCC); Transplant Renal (HCC); Immunodeficiency (HCC); Pain Back Lumbar Discharge Disposition: Home or Self Care Social History Tobacco Use Types Packs/Day Years Used Date Smoking Tobacco: Former Cigarettes 1.5 47 0 01/29/1975 - 01/04/2021 Smokeless Tobacco: Never Alcohol Use Standard Drinks/Week Comments No 0 (1 standard drink = 0.6 oz pur e alcohol) [facility] Utilities Answer Date Recorded In the past 12 months has [employer], gas, oil, or water [employer] threatened to shut off services in your [...] How often do you attend chur or baptist services? 1 to 4 times per year 12/23/2021 Do you belong to any clubs o r organizations such as restorationism groups, unions, fraternal or athletic [...] Answer Date Recorded PHQ-2 Score 2 04/09/2022 [facility] of Occupat ional Health - Occupational Stress [...] your living situation today? I have a [facility] place to live 10/11/2023 Education Answer Date Recorded What is the highest level of school you have completed or the highest degree you have received? 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 05/25/2022 gabapentin (NEURONTIN) 100 mg capsule Take 400 mg by mouth daily. hydrocortisone (for_HYTONE) 2.5 % cream Apply 1 application topically daily as needed (Eczema). 09/18/2017 mycophenolate (CELLCEPT) 250 mg capsuleIndications:Imm unodeficiency (HCC),Transplant Renal (HCC),Medication Therapy Chcf Not Anticoagulant Take 2 capsules (500 mg total) by mouth every 12 (twelve) hours. Take medication on an empty stomach. Do not break, cut, or open capsules. 360 capsule 3 06/19/2023 NIFEdipine XL (PROCARDIA XL) 30 mg 24 hr tablet Take 1 tablet (30 mg total) by mouth daily. 90 tablet 3 04/02/2023 04/01/2024 predniSONE (DELTASONE) 5 mg tabletIndications:Immu nodeficiency (HCC),Complication Kidney Transplant (HCC) take 1 tablet by mouth daily 90 tablet 3 07/06/2023 rosuvastatin (CRESTOR) 5 mg tablet Take 1 tablet (5 mg total) by mouth daily. 90 tablet 01/23/2023 semaglutide (Ozempic) 0.25 mg or 0.5 mg (2 mg/3 mL) injection Inject 0.25 mg under the skin every 7 (seven) days. 4.5 mL 3 06/29/2023 06/28/2024 tacrolimus (PROGRAF) 0.5 mg capsule Take 1 capsule (0.5 mg total) by mouth every morning. Take with 1mg capsules for total of 1.5mg am and 1mg pm 90 capsule 3 01/11/2024 02/15/2024 tacrolimus (PROGRAF) 1 mg capsuleIndications:Imm unodeficiency (HCC),Complication Kidney Transplant (HCC) Take 1 capsule (1 mg total) by mouth every morning AND 1 capsule (1 mg total) every evening. Take with 0.5mg capsules for total of 1.5mg am and 1mg pm. 180 capsule 3 01/11/2024 02/15/2024 documented as of this encounter Plan of Treatment Upcoming Encounters Date Type Department Care Team (Late st Contact Info) Description 03/27/2024 8:00 AM CDT Comprehensive Visit Department of Orthopedic Surgery in [place], [place] [address] [place] [address] Han Milian M.D. [address] [place] [address] 04/22/2024 7:30 AM CDT Appointment Department of Laboratory Medicine in [address] [phone] Soraya Lu P.A.-C., M.S. [address] [place] [phone] 04/22/2024 7:40 AM CDT Appointment Department of Laboratory Medicine in [address] [phone] Soraya Lu P.A.-C., M.S. 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) Immunodeficiency (HCC) Pain Back Lumbar documented in this encounter Results * MR Lumbar Spine without IV Contrast (02/08/2024 10:02 AM CDT) Anatomical Region Laterality Modality Lumbar Spine, Neuroradiology [facility], Neuroradiology [facility], Neuroradiology [facility] N/A Magnetic Resonance Impressions 02/08/2024 10:25 AM [...] ??Normal termination Extra-spinal Findings: ??Atrophy of the [place] kidneys with numerous T2 hyperintense lesions favored [...] Normal termination Extra-spinal Findings: Atrophy of the [place] kidneys with numerous [id number] lesions favored to represent cysts which are [...] onthe traversing S1 nerve root. Steve Martínez Jr. 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
--- OUTSIDE RECORDS SUMMARY | 2024-03-11 10:50 | XMS_ITS | Encounter Summary ---
Author Organization [facility] Address [address] [place] [id number] Care Team Providers Care Mechanical Assembler Name Role Phone Elsewhere, Pcp Primary Care Provider Unavailabl e Reason for Visit * Reason Comments Med Refill Encounter Details Date Type Department Care Team (Late st Contact Info) Description 01/17/2024 Refill Division of Nephrology and Hypertension in [place], [place] [address] [place] [address] Setve Martínez Jr., D.O. [address] [place] [phone] Med Refill Social History Tobacco Use Types Packs/Day Years Used Date Smoking Tobacco: Former Cigarettes 1.5 47 0 01/29/1975 - 01/04/2021 Smokeless Tobacco: Never Alcohol Use Standard Drinks/Week Comments No 0 (1 standard drink = 0.6 oz pur e alcohol) [facility] Utilities Answer Date Recorded In the past 12 months has e electric, gas, oil, or water company threatened to [...] How often do you attend chur or adventist services? 1 to 4 times per year 12/23/2021 Do you belong to any clubs o r organizations such as congregational groups, unions, fraternal or athletic [...] Answer Date Recorded PHQ-2 Score 2 04/09/2022 [facility] [place] of Occupat ional Health - Occupational Stress [...] Date Recorded Dental: Regular Dentist Yes 10/07/19 Employment Answer Date Recorded Employment status Permanently disabled Housing Stability Answer Date Recorded What is your living situation today? I have a [facility] place to live 10/11/2023 Education Answer Date Recorded What is the highest level of school you have completed or the highest degree you have received? 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 [address] [place] [address] 04/22/2024 7:30 AM CDT Appointment Department of Laboratory Medicine in [address] [phone] Soraya Lu P.A.-C., M.S. [address] [place] [phone] 04/22/2024 7:40 AM CDT Appointment Department of Laboratory Medicine in [address] [phone] Soraya Lu P.A.-C., M.S. [address] [place] [phone] documented as of this encounter Visit Diagnoses Diagnosis Transplant Renal (HCC)- Primary documented in this encounter Additional Health Concerns Infection Onset Date Last Indicated Resolved Time Protective Environment 11/24/2022 11/24/2022 Assessment Noted Time PHQ-9 Depression Total Score: 3 04/07/20 21 9:37 AM CDT documented as of this encounter Care Teams Mechanical Assembler Relationship Specialty Start Date End Date Elsewhere, Pcp PCP - General 09/17/19 [facility] External Provider Laboratory Medicine 04/25/22 documented as of this encounter
--- OUTSIDE RECORDS SUMMARY | 2024-03-11 10:50 | XMS_ITS | Encounter Summary ---
Author Organization [facility] Address [address] [place] [address] Care Team Providers Care Glass Lathe Operator Name Role Phone Elsewhere, Pcp Primary Care Provider Unavailabl e Reason for Referral * Outpatient (Routine) - Authorized Specialty Diagnoses / Procedures Referred By Contact Referred To Contact Orthopedic Surgery Diagnoses Chronic Kidney Disease (CKD), Stage 3b Glomerular Filtration Rate (GFR) 30 To 44 (HCC) Hypertensive Chronic Kidney Disease (CKD) Stage 3b Glomerular Filtration Rate (GFR) 30 To 44 Diabetes Mellitus Type 2 (HCC) Hyperparathyroidism Renal Secondary (HCC) Transplant Renal (HCC) Immunodeficiency (HCC) Pain Back Lumbar Steve Martínez Jr., D.ODavi [address] [place] [address] [facility] Region Referral ID Status Reason Start Date Expiration Date V isits Requested Visits Authorized [id number] Authorized 01/21/2024 07/22/2025 1 1 Scheduling Instructions Ortho internal referral panel order, imaging before Consult visit * MRI/CAT/PET Scan (Routine) - Closed Specialty [...] Spine without IV Contrast Steve Martínez Jr., D.O. [address] [place] [address] [facility] Region Referral ID Status Reason Start Date Expiration Date Visits Re quested Visits Authorized [id number] Closed 01/21/2024 01/20/2025 1 1 * Outpatient (Routine) - Closed Specialty Diagnoses / Procedures Referred By Contac t Referred To Contact Diagnoses Chronic Kidney Disease (CKD), Stage 3b Glomerular Filtration Rate (GFR) 30 To 44 (HCC) Hypertensive Chronic Kidney Disease (CKD) Stage 3b Glomerular Filtration Rate (GFR) 30 To 44 Diabetes Mellitus Type 2 (HCC) Hyperparathyroidism Renal Secondary (HCC) Transplant Renal (HCC) Immunodeficiency (HCC) Pain Back Lumbar Procedures DX Lumbar Spine 4+ Views Steve Martínez Jr., D.O. [address] [place] [address] [facility] Region Referral ID Status Reason Start Date Expiration Date Visits Re quested Visits Authorized [id number] Closed 01/21/2024 01/20/2025 1 1 Reason for Visit * Appointment Request (Routine) - Closed Specialty Diagnoses / Procedures Referred By Contac t Referred To Contact Nephrology and Hypertension Referral ID Status Reason Start Date Expiration Date Visits Re quested Visits Authorized [id number] Closed 12/07/2023 12/06/2024 1 1 Encounter Details Date Type Department Care Team (Latest Contact Info) Description 01/21/2024 2:30 PM CDT External Outreach Division of Nephrology and Hypertension in [place], [place] [address] [place] [phone] Steve Martínez Jr., D.O. [address] [place] [phone] Chronic Kidney Disease (CKD), Stage 3b Glomerular Filtration Rate (GFR) 30 To 44 (HCC) (Primary Dx); Hypertensive Chronic Kidney Disease (CKD) Stage 3b Glomerular Filtration Rate (GFR) 30 To 44; Diabetes Mellitus Type 2 (HCC); Hyperparathyroidism Renal Secondary (HCC); Transplant Renal (HCC); Immunodeficiency (HCC); Pain Back Lumbar Social History Tobacco Use Types Packs/Day Years Used Date Smoking Tobacco: Former Cigarettes 1.5 47 0 01/29/1975 - 01/04/2021 Smokeless Tobacco: Never Alcohol Use Standard Drinks/Week Comments No 0 (1 standard drink = 0.6 oz pur e alcohol) [facility] Utilities Answer Date Recorded In the past 12 months has e [employer], gas, oil, or water [employer] threatened to shut off services in your [...] often do you attend chur ch or uatsdin services? 1 to 4 times per year 12/23/2021 Do you belong to any clubs o r organizations such as yazidi groups, unions, fraternal or athletic [...] Answer Date Recorded PHQ-2 Score 2 04/09/2022 [facility] - Occupational Stress [...] your living situation today? I have a [facility] place to live 10/11/2023 Education Answer Date Recorded What is the highest level of school you have completed or the highest degree you have received? 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 - 01/21/2024 2:30 PM CDT Referring Provider: ELSEWHERE, PCP SUBJECTIVE REASON FOR VISIT [place] [facility] Follow-up regarding CKD following renal transplant, low back pain with claudication HISTORY OF PRESENT ILLNESS Ms. Wray is a 63 y.o. female who presents with a prior history of ANCA associated glomerular nephritis, for which she ultimately suffered eventually renal failure and had the 1st of 2 kidney transplant. Ultimately her 1st transplant failed and she required renal replacement for approximately 5years. Her 2nd donor kidney transplant occurred in May of 2022. This was a donor. Her renal functions remain gratifyingly stable with a serum creatinine having improved to 1.3 mg/dL. Note that she underwent renal biopsy earlier this year showing some nephrosclerosis. Her most recent tacrolimus level was below target, and hence she is now utilizing 1.5 mg of tacrolimus in the a.m. and 1 mg in the p.m., supplementing her CellCept 750 mg orally twice daily and prednisone 5 mg a day. She is on Ozempic and has lost substantial weight. She is now lost over 18 lb. She has had trouble with her ongoing exercise as she is developed right-sided iliac crest pain which originates around the paraspinal region. This pain becomes excruciating as she stands for period of time, where she needs to support her weight in which case the pain seems to resolve. Also she notes that as she walks she eventually needs to stop or support her weight on a cart so that her right leg does not become so weak that it gives way. She has not had recent trauma, she has not suffered any fevers chills. She has no bowel or bladder incontinence. She does not describe radicular pain necessarily, other than the weakness. Note that her blood pressure at home has been in the 130s systolic occasional 140s. She has had no lower extremity swelling. She is absolutely adherent to her medical regimen. We discussed a referral to the spine center in [place] regarding potential therapy. Past Medical History: Diagnosis Date Amblyopia Bilateral 1964 Blood Transfusion No Diagnosis 2007 Depressive Disorder Diabetes Mellitus NOS 06/11 Dialysis Dependent (HCC) Eczema 1964 Gastroesophageal Reflux Disease NOS Hyperlipidemia 2016 Hypertension NOS Other Specified Health Status 2008 Kidney failure Pretransplant Recipient Evaluation Exam Renal Disease Skin Cancer (Primary) NOS Sleep Apnea 2016 Transplant Renal (HCC) Current Outpatient Medications: carvediloL (COREG) 25 mg tablet, TAKE 1 TABLET(25 MG) BY MOUTH TWICE DAILY WITH MEALS, Disp: 180 tablet, Rfl: 3 furosemide (LASIX) 40 mg tablet, Take 40 mg by mouth 2 (two) times a day., Disp: , Rfl: gabapentin (NEURONTIN) 100 mg capsule, Take 400 mg by mouth daily., Disp: , Rfl: hydrocortisone (for_HYTONE) 2.5 % cream, Apply 1 application topically daily as needed (Eczema). , Disp: , Rfl: mycophenolate (CELLCEPT) 250 mg capsule, Take 2 capsules (500 mg total) by mouth every 12 (twelve) hours. Take medication on an empty stomach. Do not break, cut, or open capsules., Disp: 360 capsule,Rfl: 3 NIFEdipine XL (PROCARDIA XL) 30 mg 24 hr tablet, Take 1 tablet (30 mg total) by mouth daily., Disp:90 tablet, Rfl: 3 predniSONE (DELTASONE) 5 mg tablet, take 1 tablet by mouth daily, Disp: 90 tablet, Rfl: 3 rosuvastatin (CRESTOR) 5 mg tablet, Take 1 tablet (5 mg total) by mouth daily., Disp: 90 tablet, Rfl: 0 semaglutide (Ozempic) 0.25 mg or 0.5 mg (2 mg/3 mL) injection, Inject 0.25 mg under the skin every 7 (seven) days., Disp: 4.5 mL, Rfl: 3 tacrolimus (PROGRAF) 0.5 mg capsule, Take 1 capsule (0.5 mg total) by mouth every morning. Take with 1mg capsules for total of 1.5mg am and 1mg pm, Disp: 90 capsule, Rfl: 3 tacrolimus (PROGRAF) 1 mg capsule, Take 1 capsule (1 mg total) by mouth every morning AND 1 capsule(1 mg total) every evening. Take with 0.5mg capsules for total of 1.5mg am and 1mg pm., Disp: 180 capsule, Rfl: 3 REVIEW OF SYSTEMS All other systems reviewed and are negative. OBJECTIVE BP 142/71 Pulse 80 Ht 165.1 cm Wt 94.9 kg BMI 34.82 kg/m?? PHYSICAL EXAMINATION General: Awake alert oriented HEENT: CHANELL, EOMI, Mucous membranes moist, no oral lesions Neck: No Masses, No Bruits Lungs: Clear to ascultation Heart: Regular Rate and Rhythm, No ectopy Murmurs or rubs Abdomen: Soft, Non-tender Extremities: No cyanosis, No clubbing: No edema Neuro: Cranial Nerves intact, Gait is normal, strength grossly normal, straight leg raises negativereflexes intact Skin: no suspicious lesions identified Psychiatric: Normal affect DIAGNOSTICS Note her creatinine 1.3 mg/dL, very mild thrombocytopenia which has been appreciate in the past, normal chemistries, normal CBC immunosuppressive levels reviewed, note the slightly increased microalbumin to creatinine ratio ASSESSMENT / PLAN #1 Chronic Kidney Disease (CKD), Stage 3b Glomerular Filtration Rate (GFR) 30 To 44 (HCC) I congratulated on stability of her renal function, she is satisfactory allograft function. Going forward: 1. Continue her current immunosuppressive regimen which includes-Prograf, tacrolimus 1.5 mg in the a.m. and 1 mg in the evening with a level upcoming. 2. Prednisone 5 mg orally daily 3. CellCept 750 mg orally twice daily 4. I will see her back in 3 months 5. She will continue with surveillance from the aspect of her immunocompromised host and skin cancer/bone disease-see below. 6. Our goal blood pressure should be less than 130s over 80s. #2 Hypertensive Chronic Kidney Disease (CKD) Stage 3b Glomerular Filtration Rate (GFR) 30 To 44 Goal blood pressures are likely being achieved, I note today's blood pressure in clinic was 128/78 on recheck. #3 Diabetes Mellitus Type 2 (HCC) Most recent hemoglobin A1c was 5.8%, this was done 4 months ago, we will orchestrate this at our next visit. Encouraged her to continue on the Ozempic therapy. #4 Hyperparathyroidism Renal Secondary (HCC) We will monitor calcium phosphorus and PTH levels closely no need for any changes this point. #5 Transplant Renal (HCC) Please see above discussion #6 Immunodeficiency (HCC) Please see above discussion #7 Pain Back Lumbar There are some red flag features with respect to her necessity to support her weight and what sounds like neurogenic claudication. I am going to orchestrate an MRI scan as well as a plain set of films for her back and have her see the Spine Center in [place]. Total time: 35 minutes Counseling Time: 30 minutes Steve Martínez Jr., D.O. documented in this encounter Plan of Treatment Upcoming Encounters Date Type Department Care Team (Late st Contact Info) Description 03/27/2024 8:00 AM CDT Comprehensive Visit Department of Orthopedic Surgery in [place], [place] [address] [place] [phone] Han Milian M.D. [address] [place] [phone] 04/22/2024 7:30 AM CDT Appointment Department of Laboratory Medicine in [address] [phone] Soraya Lu P.A.-C., M.S. [address] [place] [phone] 04/22/2024 7:40 AM CDT Appointment Department of Laboratory Medicine in [address] [phone] Soraya Lu P.A.-C., M.S. [address] [place] [address] Scheduled Orders Name Type Priority Associated Diagnoses Orde r Schedule CBC with Differential, Blood Lab Routine Chronic Kidney Disease (CKD), Stage 3b Glomerular Filtration Rate (GFR) 30 To 44 (HCC) Hypertensive Chronic Kidney Disease (CKD) Stage 3b Glomerular Filtration Rate (GFR) 30 To 44 Diabetes Mellitus Type 2 (HCC) Hyperparathyroidism Renal Secondary (HCC) Transplant Renal (HCC) Immunodeficiency (HCC) Expected: 04/22/2024, Expires: 01/20/2025 Hemoglobin A1c Lab Routine Chronic Kidney Disease (CKD), Stage 3b Glomerular Filtration Rate (GFR) 30 To 44 (HCC) Hypertensive Chronic Kidney Disease (CKD) Stage 3b Glomerular Filtration Rate (GFR) 30 To 44 Diabetes Mellitus Type 2 (HCC) Hyperparathyroidism Renal Secondary (HCC) Transplant Renal (HCC) Immunodeficiency (HCC) Expected: 04/22/2024, Expires: 01/20/2025 Lipid Panel Lab Routine Chronic Kidney Disease (CKD), Stage 3b Glomerular Filtration Rate (GFR) 30 To 44 (HCC) Hypertensive Chronic Kidney Disease (CKD) Stage 3b Glomerular Filtration Rate (GFR) 30 To 44 Diabetes Mellitus Type 2 (HCC) Hyperparathyroidism Renal Secondary (HCC) Transplant Renal (HCC) Immunodeficiency (HCC) Expected: 04/22/2024, Expires: 04/22/2025 Albumin, Random, Urine Lab Routine Chronic Kidney Disease (CKD), Stage 3b Glomerular Filtration Rate (GFR) 30 To 44 (HCC) Hypertensive Chronic Kidney Disease (CKD) Stage 3b Glomerular Filtration Rate (GFR) 30 To 44 Diabetes Mellitus Type 2 (HCC) Hyperparathyroidism Renal Secondary (HCC) Transplant Renal (HCC) Immunodeficiency (HCC) Expected: 04/22/2024, Expires: 01/20/2025 Parathyroid Hormone (PTH) Lab Routine Chronic Kidney Disease (CKD), Stage 3b Glomerular Filtration Rate (GFR) 30 To 44 (HCC) Hypertensive Chronic Kidney Disease (CKD) Stage 3b Glomerular Filtration Rate (GFR) 30 To 44 Diabetes Mellitus Type 2 (HCC) Hyperparathyroidism Renal Secondary (HCC) Transplant Renal (HCC) Immunodeficiency (HCC) Expected: 04/22/2024, Expires: 01/20/2025 Renal Function Panel Lab Routine Chronic Kidney Disease (CKD), Stage 3b Glomerular Filtration Rate (GFR) 30 To 44 (HCC) Hypertensive Chronic Kidney Disease (CKD) Stage 3b Glomerular Filtration Rate (GFR) 30 To 44 Diabetes Mellitus Type 2 (HCC) Hyperparathyroidism Renal Secondary (HCC) Transplant Renal (HCC) Immunodeficiency (HCC) Expected: 04/22/2024, Expires: 01/20/2025 Urinalysis, with Microscopic: Urine, Voided Lab Routine Chronic Kidney Disease (CKD), Stage 3b Glomerular Filtration Rate (GFR) 30 To 44 (HCC) Hypertensive Chronic Kidney Disease (CKD) Stage 3b Glomerular Filtration Rate (GFR) 30 To 44 Diabetes Mellitus Type 2 (HCC) Hyperparathyroidism Renal Secondary (HCC) Transplant Renal (HCC) Immunodeficiency (HCC) Expected: 04/22/2024, Expires: 01/20/2025 Tacrolimus, Trough Lab Routine Chronic Kidney Disease (CKD), Stage 3b Glomerular Filtration Rate (GFR) 30 To 44 (HCC) Hypertensive Chronic Kidney Disease (CKD) Stage 3b Glomerular Filtration Rate (GFR) 30 To 44 Diabetes Mellitus Type 2 (HCC) Hyperparathyroidism Renal Secondary (HCC) Transplant Renal (HCC) Immunodeficiency (HCC) Expected: 04/22/2024, Expires: 04/22/2025 Scheduled Referrals Name Type Priority Associated Diagnoses Orde r Schedule Orthopedic Surgery - Spine thoracolumbar surgical consult (clinic) Outpatient Referral Routine Chronic Kidney Disease (CKD), Stage 3b Glomerular Filtration Rate (GFR) 30 To 44 (HCC) Hypertensive Chronic Kidney Disease (CKD) Stage 3b Glomerular Filtration Rate (GFR) 30 To 44 Diabetes Mellitus Type 2 (HCC) Hyperparathyroidism Renal Secondary (HCC) Transplant Renal (HCC) Immunodeficiency (HCC) Pain Back Lumbar Expected: 01/21/2024 (Approximate), Expires: 04/22/2025 documented as of this encounter Results * MR Lumbar Spine [...] ??Normal termination Extra-spinal Findings: ??Atrophy of the cachil dehe kidneys with numerous T2 hyperintense lesions favored [...] Normal termination Extra-spinal Findings: Atrophy of the cachil dehe kidneys with numerous [id number] lesions favored to represent cysts which are [...] S1 nerve root. Steve Martínez Jr., D.O. [facility] [place] ED[place] * DX Lumbar Spine [...] body height and alignment is otherwise maintained. [id number] degenerative lumbar spondylosis most pronounced at L3-4. [...] Vertebral body height and alignment is otherwise maintained.Rjcv-[id number] degenerative lumbar spondylosis most pronounced atL3-4. Atherosclerotic vascular disease. Steve Martínez Jr., D.O. [facility] PROCEDURES documented in this encounter Visit Diagnoses Diagnosis Chronic Kidney Disease (CKD), Stage 3b Glomerular Filtration Rate (GFR) 30 To 44 (HCC)- Primary Hypertensive Chronic Kidney Disease (CKD) Stage 3b Glomerular Filtration Rate (GFR) 30 To 44 Diabetes Mellitus Type 2 (HCC) Hyperparathyroidism Renal Secondary (HCC) Transplant Renal (HCC) Immunodeficiency (HCC) Pain Back Lumbar Chronic Kidney Disease (CKD), Stage 3b Glomerular Filtration Rate (GFR) 30 To 44 (HCC) Hypertensive Chronic Kidney Disease (CKD) Stage 3b Glomerular Filtration Rate (GFR) 30 To 44 Diabetes Mellitus Type 2 (HCC) Hyperparathyroidism Renal Secondary (HCC) Transplant Renal (HCC) Immunodeficiency (HCC) Pain Back Lumbar Chronic Kidney Disease (CKD), Stage 3b Glomerular [...] documented as of this encounter Care Teams Glass Lathe Operator Relationship Specialty Start Date End Date Elsewhere, Pcp PCP - General 09/17/19 [facility] External Provider Laboratory Medicine 04/25/22 documented as of this encounter
--- OUTSIDE RECORDS SUMMARY | 2024-03-11 10:50 | XMS_ITS | Encounter Summary ---
Author Organization [facility] Address [address] [place] [address] Care Team Providers Care Teaching Assistant Name Role Phone Elsewhere, Pcp Primary Care Provider Unavailabl e Reason for Referral * Outpatient (Routine) - Closed Specialty Diagnoses / Procedures Referred By Qi hare Referred To Contact Diagnoses Chronic Kidney Disease (CKD), Stage 3b Glomerular Filtration Rate (GFR) 30 To 44 (HCC) Hypertensive Chronic Kidney Disease (CKD) Stage 3b Glomerular Filtration Rate (GFR) 30 To 44 Diabetes Mellitus Type 2 (HCC) Hyperparathyroidism Renal Secondary (HCC) Transplant Renal (HCC) Immunodeficiency (HCC) Pain Back Lumbar Procedures DX Lumbar Spine 4+ Views Steve Martínez Jr., D.O. [address] [place] [phone] [facility] Region Referral ID Status Reason Start Date Expiration Date Visits Re quested Visits Authorized [id number] Closed 01/21/2024 01/20/2025 1 1 Reason for Visit * Outpatient (Routine) - Closed Specialty Diagnoses / Procedures Referred By Qi hare Referred To Contact Diagnoses Chronic Kidney Disease (CKD), Stage 3b Glomerular Filtration Rate (GFR) 30 To 44 (HCC) Hypertensive Chronic Kidney Disease (CKD) Stage 3b Glomerular Filtration Rate (GFR) 30 To 44 Diabetes Mellitus Type 2 (HCC) Hyperparathyroidism Renal Secondary (HCC) Transplant Renal (HCC) Immunodeficiency (HCC) Pain Back Lumbar Procedures DX Lumbar Spine 4+ Views Steve Martínez Jr., D.O. [address] [place] [phone] [facility] Region Referral ID Status Reason Start Date Expiration Date Visits Re quested Visits Authorized [id number] Closed 01/21/2024 01/20/2025 1 1 Encounter Details Date Type Department Care Team (Latest Contact Info) Description 02/08/2024 9:01 AM CDT Hospital Encounter Department of Radiology in [address] [phone] Steve Martínez Jr., D.O. [address] [place] [phone] Chronic Kidney Disease (CKD), Stage 3b Glomerular [...] drink = 0.6 oz pur e alcohol) [facility] Utilities Answer Date Recorded In the past 12 months has [facility] [employer], [employer], or water [employer] threatened to shut off services in your [...] How often do you attend chur or methodist services? 1 to 4 times per year 12/23/2021 Do you belong to any clubs o r organizations such as uatsdin groups, unions, fraternal or athletic [...] Answer Date Recorded PHQ-2 Score 2 04/09/2022 [facility] Occupat ional Health - [...] your living situation today? I have a [facility] place to live 10/11/2023 Education Answer Date Recorded What is the highest level of school you have completed or the highest degree you have received? 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 [address] [place] [address] 04/22/2024 7:30 AM CDT Appointment Department of Laboratory Medicine in [address] [phone] Soraya Lu P.A.-C., M.S. [address] [place] [phone] 04/22/2024 7:40 AM CDT Appointment Department of Laboratory Medicine in [address] [phone] Soraya Lu P.A.-C., M.S. [address] [place] [phone] documented as of this encounter Procedures Procedure Name Priority Date/Time Associated Diagnosis Comments DX LUMBAR SPINE 4+ VIEWS RAD - [...] Lumbar documented in this encounter Results * DX Lumbar Spine 4+ Views (02/08/2024 [...] body height and alignment is otherwise maintained. [id number]-kh-[id number] degenerative lumbar spondylosis most pronounced at L3-4. [...] Vertebral body height and alignment is otherwise maintained.[id number]-[id number] degenerative lumbar spondylosis most pronounced atL3-4. Atherosclerotic vascular disease. Whitney Rasheed Jr.ODavi [facility] IMAGING PROCEDURES documented in this [...] documented as of this encounter Care Teams Teaching Assistant Relationship Specialty Start Date End Date Elsewhere, Pcp PCP - General 09/17/19 [facility] External Provider Laboratory Medicine 04/25/22 documented as of this encounter
--- OUTSIDE RECORDS SUMMARY | 2024-03-11 10:50 | XMS_ITS | Encounter Summary ---
Author Organization [facility] Address [address] [place] [address] Care Team Providers Care Cap Machine Operator Name Role Phone Elsewhere, Pcp Primary Care Provider Unavailabl e Encounter Details Date Type Department Care Team (Late st Contact Info) Description 03/10/2024 7:21 AM CDT - 03/10/2024 11:59 PM CDT Hospital Encounter Department of Laboratory Medicine in [address] [phone] Soraya Lu P.A.-C., M.S. [address] [place] [phone] Transplant Renal (HCC); Immunodeficiency Due To Drugs (HCC); Medication Therapy Laundry Manager Not Anticoagulant Discharge Disposition: Home or Self Care Social History Tobacco Use Types Packs/Day Years Used Date Smoking Tobacco: Former Cigarettes 1.5 47 0 01/29/1975 - 01/04/2021 Smokeless Tobacco: Never Alcohol Use Standard Drinks/Week Comments No 0 (1 standard drink = 0.6 oz pur e alcohol) [facility] Utilities Answer Date Recorded In the past 12 months has e [employer], gas, oil, or water [employer] threatened to shut off services in your [...] How often do you attend chur or jewish services? 1 to 4 times per year 12/23/2021 Do you belong to any clubs o r organizations such as jain groups, unions, fraternal or athletic [...] Answer Date Recorded PHQ-2 Score 2 04/09/2022 [facility] of Occupat ional Health - Occupational Stress [...] your living situation today? I have a [facility] place to live 10/11/2023 Education Answer Date Recorded What is the highest level of school you have completed or the highest degree you have received? 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 4.5 mL 3 06/29/2023 06/28/2024 tacrolimus (Prograf) 0.5 mg capsule Take 1 capsule (0.5 mg total) by mouth 2 (two) times a day. Take with 1 mg capsules for total of 1.5mg twice daily 180 capsule 3 02/15/2024 tacrolimus (Prograf) 1 mg capsuleIndications:Imm unodeficiency (HCC),Complication Kidney Transplant (HCC) Take 1 capsule (1 mg total) by mouth 2 (two) times a day. Take with 0.5mg capsules for total of 1.5mg twice daily 180 capsule 3 02/15/2024 documented as of this encounter Plan of Treatment Upcoming Encounters Date Type Department Care Team (Late st Contact Info) Description 03/27/2024 8:00 AM CDT Comprehensive Visit Department of Orthopedic Surgery in [place], [place] [address] [place] [phone] Han Milian M.D. [address] [place] [phone] 04/22/2024 7:30 AM CDT Appointment Department of Laboratory Medicine in [address] [phone] Soraya Lu P.A.-C., M.S. [address] [place] [phone] 04/22/2024 7:40 AM CDT Appointment Department of Laboratory Medicine in [address] [phone] Soraya Lu P.A.-C., M.S. 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
--- OUTSIDE RECORDS SUMMARY | 2024-03-11 10:50 | XMS_ITS | Encounter Summary ---
Author Organization [facility] Address 200 [place] [address] Care Team Providers Care Bench Mechanic Name Role Phone Elsewhere, Pcp Primary Care Provider Unavailabl e Reason for Referral * Medication Prior Authorization - Closed Specialty Diagnoses / Procedures Referred By Contsunny t Referred To Contact Soraya Lu P.A.-C., M.S. 200 [place] [phone] Referral ID Status Reason Start Date Expiration Date Visits Re quested Visits Authorized [id number] Closed 1 1 * Medication Prior Authorization - Closed Specialty Diagnoses / Procedures Referred By Qi t Referred To Contact Diagnoses Immunodeficiency (HCC) Complication Kidney Transplant (HCC) Soraya Lu P.A.-C., M.S. [address] [place] [address] Referral ID Status Reason Start Date Expiration Date Visits Re quested Visits Authorized [id number] Closed 1 1 Reason for Visit * Reason Onset Date Comments Tacrolimus Adjustment Protocol 02/15/2024 Encounter Details Date Type Department Care Team (Latest Contact Info) Description 02/15/2024 Clinical Communication [facility] in [place], [place] [address] [place] [phone] Lola Rios R.N. [address] [place] [phone] Tacrolimus Adjustment Protocol Social History Tobacco Use Types Packs/Day Years Used Date Smoking Tobacco: Former Cigarettes 1.5 47 0 01/29/1975 - 01/04/2021 Smokeless Tobacco: Never Alcohol Use Standard Drinks/Week Comments No 0 (1 standard drink = 0.6 oz pur e alcohol) [facility] Utilities Answer Date Recorded In the past 12 months has th e electric, gas, oil, or water [employer] threatened to shut off services in your [...] often do you attend chur ch or quaker services? 1 to 4 times per year 12/23/2021 Do you belong to any clubs o r organizations such as sikhism groups, unions, fraternal or athletic [...] Answer Date Recorded PHQ-2 Score 2 04/09/2022 [facility] Occupat [facility] - Occupational Stress Questionnaire Answer Date Recorded [...] your living situation today? I have a [facility] place to live 10/11/2023 Education Answer Date Recorded What is the highest level of school you have completed or the highest degree you have received? 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 - 02/15/2024 5:01 PM CDT Tacrolimus level of 5.0 not within target range of 6-8, per Tacrolimus Adjustment Protocol dose change recommended. Current dose 1 mg AM, 1.5 mg PM New dose 1.5 mg twice daily Repeat tacrolimus level in 2 weeks Continue routine labs every month. documented in this encounter Plan of Treatment Upcoming Encounters Date Type Department Care Team (Late st Contact Info) Description 03/27/2024 8:00 AM CDT Comprehensive Visit Department of Orthopedic Surgery in [place], [place] [address] [place] [phone] Han Milian M.D. [address] [place] [phone] 04/22/2024 7:30 AM CDT Appointment Department of Laboratory Medicine in [address] [phone] Soraya Lu P.A.-C., M.S. 200 [place] [phone] 04/22/2024 7:40 AM CDT Appointment Department of Laboratory Medicine in [address] [phone] Soraya Lu P.A.-C., M.S. [address] [place] [phone] documented as of this encounter Visit Diagnoses Diagnosis Transplant Renal (HCC)- Primary Immunodeficiency Due To Drugs (HCC) High Risk Medication Immunodeficiency (HCC) Complication Kidney Transplant (HCC) documented in this encounter Additional Health Concerns Infection Onset Date Last Indicated Resolved Time Protective Environment 11/24/2022 11/24/2022 Assessment Noted Time PHQ-9 Depression Total Score: 3 04/07/20 21 9:37 AM CDT documented as of this encounter Care Teams Bench Mechanic Relationship Specialty Start Date End Date Elsewhere, Pcp PCP - General 09/17/19 [facility] External Provider Laboratory Medicine 04/25/22 documented as of this encounter
--- OUTSIDE RECORDS SUMMARY | 2024-03-11 10:50 | XMS_ITS | Encounter Summary ---
Author Organization [facility] Address [address] [place] [address] Care Team Providers Care Infrastructure Security Architect Name Role Phone Elsewhere, Pcp Primary Care Provider Unavailabl e Encounter Details Date Type Department Care Team (Late st Contact Info) Description 01/09/2024 7:22 AM CDT - 01/09/2024 11:59 PM CDT Hospital Encounter Department of Laboratory Medicine in [address] [phone] Soraya Lu P.A.-C., M.S. 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 1 to 4 times per year 12/23/2021 Do you belong to any clubs o r organizations such as yarsani groups, unions, fraternal or athletic [...] Answer Date Recorded PHQ-2 Score 2 04/09/2022 [facility] [place] of Occupat ional Health - Occupational Stress [...] your living situation today? I have a [facility] place to live 10/11/2023 Education Answer Date Recorded What is the highest level of school you have completed or the highest degree you have received? 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 05/25/2022 gabapentin (NEURONTIN) 100 mg capsule Take 400 mg by mouth daily. hydrocortisone (for_HYTONE) 2.5 % cream Apply 1 application topically daily as needed (Eczema). 09/18/2017 mycophenolate (CELLCEPT) 250 mg capsuleIndications:Imm unodeficiency (HCC),Transplant Renal (HCC),Medication Therapy Utility Assembler Not Anticoagulant Take 2 capsules (500 mg [...] (seven) days. 4.5 mL 3 06/29/2023 06/28/2024 carvediloL (COREG) 25 mg tablet Take 1 tablet (25 mg total) by mouth 2 (two) times a day with meals. 180 tablet 3 04/02/2023 01/17/2024 tacrolimus (PROGRAF) 1 mg capsuleIndications:Imm unodeficiency (HCC),Complication Kidney Transplant (HCC) Take 1 capsule (1 mg total) by mouth every morning AND 1 capsule (1 mg total) every evening. 270 capsule 3 09/28/2023 01/11/2024 documented as of this encounter Plan of Treatment Upcoming Encounters Date Type Department Care Team (Late st Contact Info) Description 03/27/2024 8:00 AM CDT Comprehensive Visit Department of Orthopedic Surgery in [place], [place] 200 [place] [phone] Han Milian M.D. 200 [place] [phone] 04/22/2024 7:30 AM CDT Appointment Department of Laboratory Medicine in [address] [phone] Soraya Lu P.A.-C., M.S. [address] [place] [phone] 04/22/2024 7:40 AM CDT Appointment Department of Laboratory Medicine in [address] [phone] Soraya Lu P.A.-C., M.S. 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 LAB URI NE ORDERABLES [facility] [address] [place] [phone], 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
--- OUTSIDE RECORDS SUMMARY | 2024-03-11 10:50 | XMS_ITS | Encounter Summary ---
Author Organization [facility] Address [address] [place] [address] Care Team Providers Care Proration Clerk Name Role Phone Elsewhere, Pcp Primary Care Provider Unavailabl e Encounter Details Date Type Department Care Team (Late st Contact Info) Description 01/09/2024 7:22 AM CDT - 01/09/2024 11:59 PM CDT Hospital Encounter Department of Laboratory Medicine in [address] [phone] Soraya Lu P.A.-C., M.S. [address] [place] [phone] Transplant Renal (HCC); Immunodeficiency Due To Drugs (HCC); Medication Therapy Propeller Driven Airplane Mechanic Not Anticoagulant Discharge Disposition: Home or Self Care Social History Tobacco Use Types Packs/Day Years Used Date Smoking Tobacco: Former Cigarettes 1.5 47 0 01/29/1975 - 01/04/2021 Smokeless Tobacco: Never Alcohol Use Standard Drinks/Week Comments No 0 (1 standard drink = 0.6 oz pur e alcohol) [facility] Utilities Answer Date Recorded In the past 12 months has e [employer], gas, oil, or water [employer] threatened to shut off services in your [...] How often do you attend chur or pentecostalism services? 1 to 4 times per year 12/23/2021 Do you belong to any clubs o r organizations such as yarsanism groups, unions, fraternal or athletic [...] Answer Date Recorded PHQ-2 Score 2 04/09/2022 [facility] of Occupat ional Health - Occupational Stress [...] your living situation today? I have a [facility] place to live 10/11/2023 Education Answer Date Recorded What is the highest level of school you have completed or the highest degree you have received? 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 200 [place] [phone] 04/22/2024 7:30 AM CDT Appointment Department of Laboratory Medicine in [address] [phone] Soraya Lu P.A.-C., M.S. [address] [place] [phone] 04/22/2024 7:40 AM CDT Appointment Department of Laboratory Medicine in [address] [phone] Soraya Lu P.A.-C., M.S. 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 Therapy Retirement Not Anticoagulant POTASSIUM, S/P Routine 01/09/2024 7:30 AM CDT 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 LAB BLO OD NON ADD-ON Performing Organization Address [facility] [place] [address], [place] [address] * Potassium (01/09/2024 7:30 AM CDT) Potassium, P 3.7 3.6 - 5.2 mmol/L 01/09/2024 7:57 AM CDT CNFL Blood (Blood, Venous) 01/09/2024 7:30 AM CDT 01/09/2024 7:36 AM CDT Soraya Lu P.A.-C., M.S. LAB BLO OD ADD-ON Performing Organization Address [facility] Co de Phone Number [address] [address], [place] [address] * (ABNORMAL) Creatinine with Estimated GFR (01/09/2024 7:30 AM CDT) Creatinine 1.37(H) 0.59 - 1.04 mg/dL 01/09/2024 7:57 AM CDT CNFL Estimated GFR (eGFR) 43(L) >=60 mL/min/BSA 01/09/2024 7:57 AM CDT CNFL Comment: Estimated GFR calculated using the 2020 CKD_EPI creatinine equation. Blood (Blood, Venous) 01/09/2024 7:30 AM CDT 01/09/2024 7:36 AM CDT Soraya Lu P.A.-C. M.S. LAB BLO OD ADD-ON [facility] [address] [place] [address], [facility] CNFL [facility] [place] [address] * (ABNORMAL) CBC with Differential, Blood (01/09/2024 7:30 AM CDT) Hemoglobin 13.4 11.6 - 15.0 g/dL 01/09/2024 7:45 AM CDT CNFL Hematocrit 41.7 35.5 - 44.9 % 01/09/2024 7:45 AM CDT CNFL Erythrocytes 4.76 3.92 - 5.13 x10(12)/L 01/09/2024 7:45 AM CDT CNFL MCV 87.6 78.2 - 97.9 fL 01/09/2024 7:45 AM CDT CNFL RBC Distrib Width 14.5 12.2 - 16.1 % 01/09/2024 7:45 AM CDT CNFL Platelet Count 127(L) 157 - 371 x10(9)/L 01/09/2024 7:45 AM CDT CNFL Leukocytes 6.8 3.4 - 9.6 x10(9)/L 01/09/2024 7:45 AM CDT CNFL Neutrophils 4.75 1.56 - 6.45 x10(9)/L 01/09/2024 7:45 AM CDT CNFL Lymphocytes 1.22 0.95 - 3.07 x10(9)/L 01/09/2024 7:45 AM CDT CNFL Monocytes 0.64 0.26 - 0.81 x10(9)/L 01/09/2024 7:45 AM CDT CNFL Eosinophils 0.13 0.03 - 0.48 x10(9)/L 01/09/2024 7:45 AM CDT CNFL Basophils <0.04 0.01 - 0.08 x10(9)/L 01/09/2024 7:45 AM CDT CNFL Blood (Blood, Venous) 01/09/2024 7:30 AM CDT 01/09/2024 7:36 AM CDT Soraya Lu P.A.-C. MDaviSDavi LAB BLO OD ADD-ON Performing Organization Address [facility] Co de Phone Number [facility] [address] [place] [phone], [facility] in [address] [address] * (ABNORMAL) Tacrolimus, Trough (01/09/2024 7:30 AM CDT) Tacrolimus, Trough 3.7(L) 5.0-15.0 (Trough) ng/mL 01/10/2024 10:16 AM CDT [facility] Comment: ----ADDITIONAL INFORMATION---- Target steady-state trough concentrations vary depending on the type of transplant, concomitant immunosuppression, clinical/institutional protocols, and time post-transplant. Results should be interpreted in conjunction with this clinical information and any physical signs/symptoms of rejection/toxicity. Testing performed by Liquid Chromatography-Tandem Mass Spectrometry (LC-MS/MS). This test was developed and its performance characteristics determined by [facility] in a manner consistent with CLIA requirements. This test has not been cleared or approved by the U.S. Food and Drug Administration. Blood (Blood, Venous) 01/09/2024 7:30 AM CDT 01/10/2024 7:05 AM CDT Soraya Lu P.A.-C., M.S. LAB BLO OD NON ADD-ON Performing Organization Address City/[facility]/ZIP Co de Phone Number [facility] [address] [place] [address] [facility] [address] [place] [address] 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
--- OUTSIDE RECORDS SUMMARY | 2024-03-11 10:50 | XMS_ITS | Encounter Summary ---
Author Organization [facility] Address [address] [place] [address] Care Team Providers Care Social Services Director Name Role Phone Elsewhere, Pcp Primary Care Provider Unavailabl e Encounter Details Date Type Department Care Team (Late st Contact Info) Description 03/10/2024 7:21 AM CDT - 03/10/2024 11:59 PM CDT Hospital Encounter Department of Laboratory Medicine in [address] [phone] Soraya Lu P.A.-C., M.S. [address] [place] [phone] Transplant Renal (HCC); Immunodeficiency Due To Drugs (HCC); Medication Therapy Foster Winder Not Anticoagulant Discharge Disposition: Home or Self Care Social History Tobacco Use Types Packs/Day Years Used Date Smoking Tobacco: Former Cigarettes 1.5 47 0 01/29/1975 - 01/04/2021 Smokeless Tobacco: Never Alcohol Use Standard Drinks/Week Comments No 0 (1 standard drink = 0.6 oz pur e alcohol) [facility] Utilities Answer Date Recorded In the past 12 months has e [employer], gas, oil, or water [employer] threatened to shut off services in your [...] How often do you attend chur or pentecostal services? 1 to 4 times per year 12/23/2021 Do you belong to any clubs o r organizations such as shinto groups, unions, fraternal or athletic [...] Answer Date Recorded PHQ-2 Score 2 04/09/2022 [facility] [place] of Occupat ional Health - Occupational Stress [...] your living situation today? I have a [facility] place to live 10/11/2023 Education Answer Date Recorded What is the highest level of school you have completed or the highest degree you have received? 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 [address] [place] [phone] 04/22/2024 7:30 AM CDT Appointment Department of Laboratory Medicine in [address] [phone] Soraya Lu P.A.-C., M.S. [address] [place] [phone] 04/22/2024 7:40 AM CDT Appointment Department of Laboratory Medicine in [address] [phone] Soraya Lu P.A.-C., M.S. 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 Therapy Mcfp Not Anticoagulant Once for 1 Occurrences starting 03/10/2024 until 03/10/2024 documented as of this encounter Procedures Procedure Name Priority Date/Time Associated Diagnosis Comments CBC WITH DIFFERENTIAL, B Routine 03/10/2024 7:35 AM CDT 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 Therapy Foster Winder Not Anticoagulant POTASSIUM, S/P Routine 03/10/2024 7:35 AM CDT 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 Therapy Mcfp Not Anticoagulant GLUCOSE, FASTING, S/P Routine 03/10/2024 7:35 AM CDT 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 [place] [address], [place] [address] * Potassium (03/10/2024 7:35 AM CDT) Potassium, P 3.6 3.6 - 5.2 mmol/L 03/10/2024 8:14 AM CDT CNFL Blood (Blood, Venous) 03/10/2024 7:35 AM CDT 03/10/2024 7:37 AM CDT Soraya Lu P.A.-C., M.S. [place] [address], [place] [address] * (ABNORMAL) Creatinine with Estimated GFR (03/10/2024 7:35 AM CDT) Creatinine 1.66(H) 0.59 - 1.04 mg/dL 03/10/2024 8:14 AM CDT CNFL Estimated GFR (eGFR) 34(L) >=60 mL/min/BSA 03/10/2024 8:14 AM CDT CNFL Comment: Estimated GFR calculated using the 2020 CKD_EPI creatinine equation. Blood (Blood, Venous) 03/10/2024 7:35 AM CDT 03/10/2024 7:37 AM CDT Soraya Lu P.A.-C., M.S. LAB BLO OD ADD-ON [facility] [address] [place] [address], [facility] CNFL [facility] [place] [address] * (ABNORMAL) CBC with Differential, Blood (03/10/2024 7:35 AM CDT) Hemoglobin 14.0 11.6 - 15.0 g/dL 03/10/2024 [...] 03/10/2024 7:37 AM CDT Soraya Lu P.A.-C. M.S. LAB BLO OD ADD-ON Performing Organization Address City/State/[facility] Co de Phone Number [facility] [place] [address], 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
--- OUTSIDE RECORDS SUMMARY | 2024-03-11 10:50 | XMS_ITS | Encounter Summary ---
Author Organization [facility] Address [address] [place] [address] Care Team Providers Care Drug And Alcohol Counselor Name Role Phone Elsewhere, Pcp Primary Care Provider Unavailabl e Encounter Details Date Type Department Care Team (Late st Contact Info) Description 02/11/2024 7:15 AM CDT - 02/11/2024 11:59 PM CDT Hospital Encounter Department of Laboratory Medicine in [address] [phone] Soraya Lu P.A.-C., M.S. [address] [place] [phone] Transplant Renal (HCC); Immunodeficiency Due To Drugs (HCC); Medication Therapy Licensed Pesticide Applicator Not Anticoagulant Discharge Disposition: Home or Self Care Social History Tobacco Use Types Packs/Day Years Used Date Smoking Tobacco: Former Cigarettes 1.5 47 0 01/29/1975 - 01/04/2021 Smokeless Tobacco: Never Alcohol Use Standard Drinks/Week Comments No 0 (1 standard drink = 0.6 oz pur e alcohol) [facility] Utilities Answer Date Recorded In the past 12 months has e [employer], gas, oil, or water [employer] threatened to shut off services in your [...] How often do you attend chur or yarsanism services? 1 to 4 times per year 12/23/2021 Do you belong to any clubs o r organizations such as alevism groups, unions, fraternal or athletic [...] Answer Date Recorded PHQ-2 Score 2 04/09/2022 [facility] [place] of Occupat ional Health - Occupational Stress [...] your living situation today? I have a [facility] place to live 10/11/2023 Education Answer Date Recorded What is the highest level of school you have completed or the highest degree you have received? 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 [address] [place] [phone] 04/22/2024 7:30 AM CDT Appointment Department of Laboratory Medicine in [address] [phone] Soraya Lu P.A.-C., M.S. [address] [place] [phone] 04/22/2024 7:40 AM CDT Appointment Department of Laboratory Medicine in [address] [phone] Soraya Lu P.A.-C., M.S. 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
--- OUTSIDE RECORDS SUMMARY | 2024-03-11 10:50 | XMS_ITS | Encounter Summary ---
Author Organization [facility] Address [address] [place] [address] Care Team Providers Care Condominium Property Manager Name Role Phone Elsewhere, Pcp Primary Care Provider Unavailabl e Reason for Visit * Reason Onset Date Comments Tacrolimus Adjustment Protocol 01/11/2024 Encounter Details Date Type Department Care Team (Latest Contact Info) Description 01/11/2024 Clinical Communication Ata Vega [facility] in [place], [place] [address] [place] [phone] Yari Zaidi, R.N. Tacrolimus Adjustment Protocol Social History Tobacco Use Types Packs/Day Years Used Date Smoking Tobacco: Former Cigarettes 1.5 47 0 01/29/1975 - 01/04/2021 Smokeless Tobacco: Never Alcohol Use Standard Drinks/Week Comments No 0 (1 standard drink = 0.6 oz pur e alcohol) [facility] Utilities Answer Date Recorded In [...] often do you attend chur ch or mandaeism services? 1 to 4 times per year 12/23/2021 Do you belong to any clubs o r organizations such as moravian groups, unions, fraternal or athletic [...] Answer Date Recorded PHQ-2 Score 2 04/09/2022 [facility] of Occupat ional Health - [...] your living situation today? I have a [facility] place to live 10/11/2023 Education Answer Date Recorded What is the highest level of school you have completed or the highest degree you have received? 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 - 01/11/2024 3:56 PM CDT Tacrolimus level of 3.7 not within target range of 6-8, per Tacrolimus Adjustment Protocol dose change recommended. Current dose 1mg twice daily New dose 1.5mg am and 1mg pm Repeat tacrolimus level in 1 week documented in this encounter Plan of Treatment Upcoming Encounters Date Type Department Care Team (Late st Contact Info) Description 03/27/2024 8:00 AM CDT Comprehensive Visit Department of Orthopedic Surgery in [place], [place] [address] [place] [phone] Han Milian M.D. [address] [place] [phone] 04/22/2024 7:30 AM CDT Appointment Department of Laboratory Medicine in [address] [phone] Soraya Lu P.A.-C., M.S. [address] [place] [phone] 04/22/2024 7:40 AM CDT Appointment Department of Laboratory Medicine in [address] [phone] Soraya Lu P.A.-Fracisco., M.S. [address] [place] [phone] documented as of this encounter Visit Diagnoses Diagnosis Immunodeficiency (HCC) Complication Kidney Transplant (HCC) documented in this encounter Additional Health Concerns Infection Onset Date Last Indicated Resolved Time Protective Environment 11/24/2022 11/24/2022 Assessment Noted Time PHQ-9 Depression Total Score: 3 04/07/20 21 9:37 AM CDT documented as of this encounter Care Teams Condominium Property Manager Relationship Specialty Start Date End Date Elsewhere, Pcp PCP - General 09/17/19 [facility] External Provider Laboratory Medicine 04/25/22 documented as of this encounter
--- OUTSIDE RECORDS SUMMARY | 2024-03-11 10:50 | XMS_ITS | Encounter Summary ---
Author Organization [facility] Address [address] [place] [address] Care Team Providers Care Prizer Hand Name Role Phone Elsewhere, Pcp Primary Care Provider Unavailabl e Encounter Details Date Type Department Care Team (Late st Contact Info) Description 02/11/2024 7:15 AM CDT - 02/11/2024 11:59 PM CDT Hospital Encounter Department of Laboratory Medicine in [address] [phone] Soraya Lu P.A.-C., M.S. [address] [place] [phone] Transplant Renal (HCC); Immunodeficiency Due To Drugs (HCC); Medication Therapy Corrugator Operator Not Anticoagulant Discharge Disposition: Home or Self Care Social History Tobacco Use Types Packs/Day Years Used Date Smoking Tobacco: Former Cigarettes 1.5 47 0 01/29/1975 - 01/04/2021 Smokeless Tobacco: Never Alcohol Use Standard Drinks/Week Comments No 0 (1 standard drink = 0.6 oz pur e alcohol) [facility] Utilities Answer Date Recorded In the past 12 months has e [employer], gas, oil, or water [employer] threatened to shut off services in your [...] How often do you attend chur or sikhism services? 1 to 4 times per year 12/23/2021 Do you belong to any clubs o r organizations such as hinduism groups, unions, fraternal or athletic [...] Answer Date Recorded PHQ-2 Score 2 04/09/2022 [facility] [place] of Occupat ional Health - Occupational Stress [...] your living situation today? I have a [facility] place to live 10/11/2023 Education Answer Date Recorded What is the highest level of school you have completed or the highest degree you have received? 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 [address] [place] [phone] 04/22/2024 7:30 AM CDT Appointment Department of Laboratory Medicine in [address] [phone] Soraya Lu P.A.-C., M.S. [address] [place] [phone] 04/22/2024 7:40 AM CDT Appointment Department of Laboratory Medicine in [address] [phone] Soraya Lu P.A.-C., M.S. 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 Therapy [facility] Not Anticoagulant POTASSIUM, S/P Routine 02/11/2024 7:25 AM CDT 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 LAB BLO OD NON ADD-ON Performing Organization Address [facility] [place] [address], [place] [address] * (ABNORMAL) Potassium (02/11/2024 7:25 AM CDT) Potassium, P 3.5(L) 3.6 - 5.2 mmol/L 02/11/2024 7:49 AM CDT CNFL Blood (Blood, Venous) 02/11/2024 7:25 AM CDT 02/11/2024 7:27 AM CDT Soraya Lu P.A.-C., M.S. LAB BLO OD ADD-ON Performing Organization Address [facility] [place] [address], [place] [address] * (ABNORMAL) Creatinine with Estimated GFR (02/11/2024 7:25 AM CDT) Creatinine 1.35(H) 0.59 - 1.04 mg/dL 02/11/2024 7:49 AM CDT CNFL Estimated GFR (eGFR) 44(L) >=60 mL/min/BSA 02/11/2024 7:49 AM CDT CNFL Comment: Estimated GFR calculated using the 2020 CKD_EPI creatinine equation. Blood (Blood, Venous) 02/11/2024 7:25 AM CDT 02/11/2024 7:27 AM CDT Soraya Lu P.A.-C., M.S. LAB BLO OD ADD-ON [facility] [address] [place] [address], [facility] CNFL [facility] [place] [address] * (ABNORMAL) CBC with Differential, Blood (02/11/2024 7:25 AM CDT) Hemoglobin 14.6 11.6 - 15.0 g/dL 02/11/2024 7:36 AM CDT CNFL Hematocrit 44.0 35.5 - 44.9 % 02/11/2024 7:36 AM CDT CNFL Erythrocytes 5.04 3.92 - 5.13 x10(12)/L 02/11/2024 7:36 AM CDT CNFL MCV 87.3 78.2 - 97.9 fL 02/11/2024 7:36 AM CDT CNFL RBC Distrib Width 14.0 12.2 - 16.1 % 02/11/2024 7:36 AM CDT CNFL Platelet Count 138(L) 157 - 371 x10(9)/L 02/11/2024 7:36 AM CDT CNFL Leukocytes 7.4 3.4 - 9.6 x10(9)/L 02/11/2024 7:36 AM CDT CNFL Neutrophils 5.01 1.56 - 6.45 x10(9)/L 02/11/2024 7:36 AM CDT CNFL Lymphocytes 1.55 0.95 - 3.07 x10(9)/L 02/11/2024 7:36 AM CDT CNFL Monocytes 0.72 0.26 - 0.81 x10(9)/L 02/11/2024 7:36 AM CDT CNFL Eosinophils 0.12 0.03 - 0.48 x10(9)/L 02/11/2024 7:36 AM CDT CNFL Basophils <0.04 0.01 - 0.08 x10(9)/L 02/11/2024 7:36 AM CDT CNFL Blood (Blood, Venous) 02/11/2024 7:25 AM CDT 02/11/2024 7:27 AM CDT Soraya Lu P.A.-C., M.S. LAB BLO OD ADD-ON Performing Organization Address City/[facility]/ZIP Co de Phone Number [facility] [place] [address], [facility] CNFL [facility] [place] [address] * Tacrolimus, Trough (02/11/2024 7:25 AM CDT) Tacrolimus, Trough 5.0 5.0-15.0 (Trough) ng/mL 02/12/2024 9:29 AM CDT [facility] Comment: ----ADDITIONAL INFORMATION---- Target steady-state trough concentrations vary depending on the type of transplant, concomitant immunosuppression, clinical/institutional protocols, and time post-transplant. Results should be interpreted in conjunction with this clinical information and any physical signs/symptoms of rejection/toxicity. Testing performed by Liquid Chromatography-Tandem Mass Spectrometry (LC-MS/MS). This test was developed and its performance characteristics determined by [facility] in a manner consistent with CLIA requirements. This test has not been cleared or approved by the U.S. Food and Drug Administration. Blood (Blood, Venous) 02/11/2024 7:25 AM CDT 02/12/2024 6:51 AM CDT Soraya Lu P.A.-C., M.S. LAB BLO OD NON ADD-ON [facility] [address] [place] [address] [place] 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
--- OUTSIDE RECORDS SUMMARY | 2024-03-11 10:51 | XMS_ITS | Encounter Summary ---
Author Organization [facility] Address [address] [place] [address] Care Team Providers Care Finishing Wire Sawyer Name Role Phone Elsewhere, Pcp Primary Care Provider Unavailabl e Encounter Details Date Type Department Care Team (Late st Contact Info) Description 12/10/2023 7:00 AM CDT - 12/10/2023 7:09 AM CDT Hospital Encounter Department of Laboratory Medicine in [address] [phone] Soraya Lu P.A.-C., M.S. [address] [place] [phone] Transplant Renal (HCC); Immunodeficiency Due To Drugs (HCC); Medication Therapy Rn Telephone Triage Not Anticoagulant Discharge Disposition: Home or Self Care Social History Tobacco Use Types Packs/Day Years Used Date Smoking Tobacco: Former Cigarettes 1.5 47 0 01/29/1975 - 01/04/2021 Smokeless Tobacco: Never Alcohol Use Standard Drinks/Week Comments No 0 (1 standard drink = 0.6 oz pur e alcohol) [facility] Utilities Answer Date Recorded In the past 12 months has e Before the Call, gas, oil, or water [employer] threatened to shut off services in your [...] How often do you attend chur or rastafari services? 1 to 4 times per year 12/23/2021 Do you belong to any clubs o r organizations such as buddhism groups, unions, fraternal or athletic [...] Answer Date Recorded PHQ-2 Score 2 04/09/2022 [facility] of Occupat ional Health - Occupational Stress [...] your living situation today? I [facility] to live 10/11/2023 Education Answer Date Recorded What is the highest level of school you have completed or the highest degree you have received? 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 200 [place] [address] 04/22/2024 7:30 AM CDT Appointment Department of Laboratory Medicine in [address] [phone] Soraya Lu P.A.-C., M.S. [address] [place] [phone] 04/22/2024 7:40 AM CDT Appointment Department of Laboratory Medicine in [address] [phone] Soraya Lu P.A.-C., M.S. 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
--- OUTSIDE RECORDS SUMMARY | 2024-03-11 10:51 | XMS_ITS | Encounter Summary ---
Author Organization [facility] Address [address] [place] [address] Care Team Providers Care Ribbon Cleaner Name Role Phone Elsewhere, Pcp Primary Care Provider Unavailabl e Encounter Details Date Type Department Care Team (Late st Contact Info) Description 12/10/2023 7:10 AM CDT - 12/10/2023 11:59 PM CDT Hospital Encounter Department of Laboratory Medicine in [address] [phone] Soraya Lu P.A.-C., M.S. [address] [place] [phone] Transplant Renal (HCC); Immunodeficiency Due To Drugs (HCC); Medication Therapy Cooking Show Host Not Anticoagulant Discharge Disposition: Home or Self Care Social History Tobacco Use Types Packs/Day Years Used Date Smoking Tobacco: Former Cigarettes 1.5 47 0 01/29/1975 - 01/04/2021 Smokeless Tobacco: Never Alcohol Use Standard Drinks/Week Comments No 0 (1 standard drink = 0.6 oz pur e alcohol) [facility] Utilities Answer Date Recorded In the past 12 months has e [employer], gas, oil, or water [employer] threatened to shut off services in your [...] How often do you attend chur or yazdanism services? 1 to 4 times per year 12/23/2021 Do you belong to any clubs o r organizations such as taoism groups, unions, fraternal or athletic [...] Answer Date Recorded PHQ-2 Score 2 04/09/2022 [facility] [place] of Occupat ional Health - Occupational Stress [...] your living situation today? I have a [facility] place to live 10/11/2023 Education Answer Date Recorded What is the highest level of school you have completed or the highest degree you have received? 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 200 [place] [phone] 04/22/2024 7:30 AM CDT Appointment Department of Laboratory Medicine in [address] [phone] Soraya Lu P.A.-C., M.S. [address] [place] [phone] 04/22/2024 7:40 AM CDT Appointment Department of Laboratory Medicine in [address] [phone] Soraya Lu P.A.-C., M.S. 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 Therapy Longterm Not Anticoagulant GLUCOSE, FASTING, S/P Routine 12/10/2023 7:37 AM CDT 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 LAB BLO OD NON ADD-ON [address] [address], [facility] CNFL [facility] in [address] [address] * (ABNORMAL) Potassium (12/10/2023 7:37 AM CDT) Potassium, P 3.4(L) 3.6 - 5.2 mmol/L 12/10/2023 8:03 AM CDT CNFL Blood (Blood, Venous) 12/10/2023 7:37 AM CDT 12/10/2023 7:39 AM CDT Soraya Lu P.A.-C., M.S. LAB BLO OD ADD-ON [address] [address], [address] [address] * (ABNORMAL) Creatinine with Estimated GFR (12/10/2023 7:37 AM CDT) Creatinine 1.51(H) 0.59 - 1.04 mg/dL 12/10/2023 8:03 AM CDT CNFL Estimated GFR (eGFR) 38(L) >=60 mL/min/BSA 12/10/2023 8:03 AM CDT CNFL Comment: Estimated GFR calculated using the 2020 CKD_EPI creatinine equation. Blood (Blood, Venous) 12/10/2023 7:37 AM CDT 12/10/2023 7:39 AM CDT Soraya Lu P.A.-C. M.S. LAB BLO OD ADD-ON [facility] [address] [place] [phone], [facility] CNFL [place] [address] * (ABNORMAL) CBC with Differential, Blood (12/10/2023 7:37 AM CDT) Hemoglobin 14.1 11.6 - 15.0 g/dL 12/10/2023 7:50 AM CDT CNFL Hematocrit 43.4 35.5 - 44.9 % 12/10/2023 7:50 AM CDT CNFL Erythrocytes 4.95 3.92 - 5.13 x10(12)/L 12/10/2023 7:50 AM CDT CNFL MCV 87.7 78.2 - 97.9 fL 12/10/2023 7:50 AM CDT CNFL RBC Distrib Width 13.5 12.2 - 16.1 % 12/10/2023 7:50 AM CDT CNFL Platelet Count 137(L) 157 - 371 x10(9)/L 12/10/2023 7:50 AM CDT CNFL Leukocytes 5.2 3.4 - 9.6 x10(9)/L 12/10/2023 7:50 AM CDT CNFL Neutrophils 3.08 1.56 - 6.45 x10(9)/L 12/10/2023 7:50 AM CDT CNFL Lymphocytes 1.50 0.95 - 3.07 x10(9)/L 12/10/2023 7:50 AM CDT CNFL Monocytes 0.49 0.26 - 0.81 x10(9)/L 12/10/2023 7:50 AM CDT CNFL Eosinophils 0.14 0.03 - 0.48 x10(9)/L 12/10/2023 7:50 AM CDT CNFL Basophils <0.04 0.01 - 0.08 x10(9)/L 12/10/2023 7:50 AM CDT CNFL Blood (Blood, Venous) 12/10/2023 7:37 AM CDT 12/10/2023 7:39 AM CDT Soraya Lu P.A.-C. MDaviSDavi LAB BLO OD ADD-ON Performing Organization Address [facility] Co de Phone Number [facility] [address] [place] [address], [facility] in [address] [address] * Tacrolimus, Trough (12/10/2023 7:37 AM CDT) [facility] Signature Tacrolimus, Trough 6.2 5.0-15.0 (Trough) ng/mL 12/11/2023 9:58 AM CDT [facility] Comment: ----ADDITIONAL INFORMATION---- Target steady-state trough concentrations vary depending on the type of transplant, concomitant immunosuppression, clinical/institutional protocols, and time post-transplant. Results should be interpreted in conjunction with this clinical information and any physical signs/symptoms of rejection/toxicity. Testing performed by Liquid Chromatography-Tandem Mass Spectrometry (LC-MS/MS). This test was developed and its performance characteristics determined by [facility] in a manner consistent with CLIA requirements. This test has not been cleared or approved by the U.S. Food and Drug Administration. Blood (Blood, Venous) 12/10/2023 7:37 AM CDT 12/11/2023 6:59 AM CDT Soraya Lu P.A.-C., M.S. LAB BLO OD NON ADD-ON [facility] [place] [address] [place] [address] [facility] [address] [place] [address] 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
--- OUTSIDE RECORDS SUMMARY | 2024-03-11 10:51 | XMS_ITS ---
Author Organization [facility] Address [address] [place] [address] Care Team Providers Care Kitchen Clerk Name Role Phone Elsewhere, Pcp Primary Care Provider Unavailabl e Transplant Episode Kidney Recipient [facility] ([place], [place]) - [facility] Organ Received: Left Kidney Transplanted on 04/06/2022 Marked as Active Follow-up on 04/06/2022 Kidney CoordinatorTXP POST KIDNEY NURSE TEAM 3 [facility] Phone: N/A Fax: N/A Email: N/A Retransplant Diagnosis Organ Primary Contributory Kidney Retransplant/Graft Failure Kidne y Infection History Noted Survival Infection Treatment Organism Resolved 07/31/2022 116 days Cellulitis 07/31/2022 116 days Bronchitis 09/16/2019 Urinary Tract In fection (UTI)/Bacteriuria NOS Donor Information Organ ABO Source Meets Risk Criteria HLA Match Mismatches Cross Match Left Kidney Transplanted O DCD No A: B: DR: Left Kidney Donor Serology Results Anti-HBcAb HBC Total: Negative HBsAg HBsAg: Negative HBsAb HBsAb: Not Done HBV DNA No results on file Anti-HCV HCV: Negative HCV RNA No results on file HAV No results on file Anti-HIV I/II HIV-1: Negative HIV Ag/Ab Combo Assay: Not Done HIV RNA HIV GEOVANNA: Negative Anti-HTLV I/II HTLV: Not Done Coccidioides No results on file Anti-CMV CMV IgG: Negative Quantiferon TB No results on file EBV Total No results on file EBV IgG EBV VCA IgG: Positive EBV IgM EBV VCA IgM: Negative EBNA EBNA IgG: Not Done Measles No results on file Mumps No results on file Rubella No results on file Varicella Zoster No results on file HSV 1 No results on file HSV 2 No results on file Toxoplasm a Toxoplasm a IgG: Positive Cryptococcus Ag No results on file Histoplasma No results on file Strongyloides No results on file [place] ma No results on file Trypanosoma cruzi No results on file RPR/VDRL RPR: Negative Syphilis No results on file RSV No results on file SARS CoV-2 No results on file HBV GEOVANNA HBV GEOVANNA: Negative HCV GEOVANNA HCV GEOVANNA: Negative Care Team Name Role Phone Fax Email TXP POST KIDNEY NURSE TEAM 3 [facility] Kidney Coordinator N/A N/A N/A Jeni Cantrell M.D. Transplant Fire Prevention Inspector N/A N/A N/A Steve Martínez Jr., D.O. Referring Provider N/A N/A N/A Shaun Head M.D., Ph.D. Transplant Surgeon N/A N/A N/A Events Post-Transplant Pre-Transplant Admitted: 04/06/2022 Referred: 07/02/2017 Transplanted: 04/06/2022 Evaluation began: 8 Discharged: 04/09/2022 Committee: 09/26/2017 UNOS qualified: 06/15/2017 Center waitlisted: 8 Dialysis History Dialysis History Start End Type Comments Center 12/17/2020 12/17/2020 In-center Hemodialysis RS T DLS [facility] 05/05/2019 05/05/2019 In-center Hemodialysis RS T DLS [facility] 04/15/2019 04/15/2019 In-center Hemodialysis RS T DLS [facility] 02/11/2019 02/11/2019 In-center Hemodialysis RS T DLS [facility] 06/15/2017 04/06/2022 [facility] [place] [facility] Information Center Phone Fax Address [facility] [address] [phone] [address] [facility] [address] [facility] [phone] [address] [facility] [address]
--- NOTE | 2024-03-11 11:00 | CRLHL7_ITS ---
For Patients: As a result of the Cures Act, medical imaging exams and procedure reports are released immediately into your electronic medical record. You may view this report before your referring provider. If you have questions, please contact your health care provider. INDICATION: Lung cancer screening. History of smoking. High risk patient with greater than 45 pack-year smoking history. TECHNIQUE: Low-dose lung cancer screening non-contrast CT chest. Dose reduction techniques were used. COMPARISON: None. FINDINGS: NODULES: None. LUNGS AND PLEURA: Emphysema. MEDIASTINUM: Atherosclerotic changes. Visualized thyroid normal. No enlarged lymph nodes. CORONARY ARTERY CALCIFICATION: Present. LIMITED UPPER ABDOMEN: Bilateral renal cortical atrophy. Vascular calcifications. No adrenal nodule. MUSCULOSKELETAL: Right vascular stent in the axilla. Multilevel degenerative disc disease. IMPRESSION: Negative for lung cancer screening purposes. LUNG-RADS CATEGORY: 1: Negative. RADIOLOGIST RECOMMENDATION: Continue annual screening with low-dose CT chest in 12 months. Please note that all CT scans at this facility use dose modulation, iterative reconstruction, and/or weight-based dosing when appropriate to reduce radiation dose to as low as reasonably achievable. Dictated by Geraldo Tellez MD @ 03/11/2024 1:01:36 PM (Electronically Signed)
--- NOTE | 2024-03-11 14:31 | PT.OPE ---
PT [facility] Outpatient Eval PT [facility] Outpatient Eval Start: 03/07/24 15:04 Freq: Status: Active Protocol: Document 03/07/24 15:05 NICO (Rec: 03/07/24 15:07 NICO [id number]) E-signed By Cresencio Oviedo DPT, MS Physical Therapy Outpatient Evaluation Insurance Information Recert Due Date 06/05/24 Insurance Name Medicare B Medical Diagnosis Low back pain, unspecified Treating Diagnosis Decreased B (R>L) LE and LS flexibility, deconditioning, imbalance, and B LE and core weakness Subjective Subjective Patient is a 63 y.o. female with a complex PMH and PSH who presents to PT with c/o R- sided LS pain of insidious origin 11/2023. Cannot recall a specific injury with sxs occurring after she began an intense workout routine at the gym using a NuStep with quick and aggressive movements to maximize weight loss. Had a successful kidney replacement 2 years ago at [facility] and hopes to improve her quality of life since she believes she only has 10-12 quality years of life remaining. Has been on prednisone since she was 46 and knows this has contributed to decreased bone density, LS and B knee OA. LS MRI 01/2024 found spondylosis, disc protrusion at S1- L5 with mass effect on S1, and neuroforaminal and central stenosis. Denies radicular sxs or changes in bowel or bladder function. Has an appt at [facility] on 03/27/24 to review her LS MRI and treatment options. She hopes to learn exercises to safely perform at home and the gym to improve her strength and ability to walk since she can only walk ~ 1/2 block until a rest is required due to elevated pain and fatigue. Hopes to be able to walk from her room to the dining ritter during a cruise in the fall. PMH includes DM-II, HTN, and B knee and LS OA. AGGR factors: walking, standing, extended sitting, driving, carrying objects, uneven surfaces, stair climbing. ALLEV factors: rest, sitting, lying supine, heat. 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 Objectively pt displays decreased B LS and LE flexibility and ROM, gait dysfunction, imbalance, deconditioning, and B UE, LE and core weakness. Significant B (R>L) glute, quad and core muscle weakness appears to be leading to sxs with walking and in extended WBing positions. Reviewed her gym workout routine instructing her to decrease joleen and resistance for the NuStep and avoiding knee ext machine since these were likely placing elevated strain on her knees and LS. She responded well to NuStep, stretching and strengthening exercises with fatigue and decreased B knee and LS pain levels following. She will benefit from continued skilled PT intervention to address these limitations. Primary Functional Limitations Walking, standing, extended sitting, driving, carrying objects, uneven surfaces, stair climbing Plan of Care Rehabilitation Potential Good Rehabilitation Potential Comments Due to chronic nature of sxs, PMH, degenerative LS changes and deconditioning Physical Therapy Goals Short-term goals to be completed in 4 weeks: 1. Pt will be able to stand and walk for >10 min with LS pain <3/10 to improve sravanthi to dean and daily activities. 2. Pt will report >50% improvement in LS pain >2 consecutive workdays. Long-term goals to be completed in 10 weeks: 1. Pt will be I and compliant with her HEP for long-term sx management. 2. Pt will display >25% improvement in B LS flex and rot AROM to safely strip picker objects and back up a car. 3. Pt will display improved abdominal, B mid trap , low trap, hip flex, ABD and ext strength >4/5 to improve tolerance to walking and caregiving activities for her dad. 4. Pt will report >50% improvement in modified OSWESTRY questionnaire to significantly improve sravanthi to daily activities. Coordination/Communication With Referral Source Treatment Plan/Direct Interventions Manual Therapy,Neuromuscular Re-ed,Therapeutic Exercises Frequency/Duration 1x per week for least 6-10 visits, decreasing visit frequency as able. Patient Will Be Discharged From Therapy Completion of LTG(s),Skills Plateau,Independent w/HEP, Independently Progressing Evaluation Billing Untimed Code Treatment Minutes 25 Complexity Moderate Certification Information Initial Certification Date 03/07/24 Ending Certification Date 06/05/24 Provider Signature Required Yes Provider Signature Shows Agreement With POC & Medical Necessity Physician NPI Number Write NPI# Here Physician Comment/Change : Physician Signature & Date Requested Please Sign/Date Here
== END 2024-03-11 10:46 | disposition home or self-care (01) ==
LOC: CT 10:46
PROVIDERS: PCP Physician Assistant Medical; Visit Provider Physician Assistant Medical
DX: Z12.2 Encounter for screening for malignant neoplasm of respiratory organs (principal); Z87.891 Personal history of nicotine dependence
CPT/HCPCS: 71271; 97110; 97162

== ENCOUNTER 2024-03-21 10:45 | Outpatient (RCR) | payer MEDICARE, MEDICAID, SELFPAY ==
--- NOTE | 2024-03-21 11:25 | PT.OPE ---
PT [place] [facility] PT [facility] Eval Start: 03/21/24 11:20 Freq: Status: Active Protocol: Document 03/07/24 11:21 NICO (Rec: 03/21/24 11:24 NICO [id number]) E-signed By Cresencio Oviedo DPT, MS Physical Therapy Outpatient Evaluation Insurance Information Recert Due Date 06/05/24 Insurance Name Medicare B,Medicaid Medical Diagnosis Low back pain, unspecified Treating Diagnosis decreased B LS and LE flexibility and ROM, gait dysfunction, imbalance, deconditioning, and B UE, LE and core weakness Subjective Subjective Patient is a 63 y.o. female with a complex PMH and PSH who presents to PT with c/o R- sided LS pain of insidious origin 11/2023. Cannot recall a specific injury with sxs occurring after she began an intense workout routine at the gym using a NuStep with quick and aggressive movements to maximize weight loss. Had a successful kidney replacement 2 years ago at [facility] and hopes to improve her quality of life since she believes she only has 10-12 quality years of life remaining. Has been on prednisone since she was 46 and knows this has contributed to decreased bone density, LS and B knee OA. LS MRI 01/2024 found spondylosis, disc protrusion at S1- L5 with mass effect on S1, and neuroforaminal and central stenosis. Denies radicular sxs or changes in bowel or bladder function. Has an appt at [facility] on 03/27/24 to review her LS MRI and treatment options. She hopes to learn exercises to safely perform at home and the gym to improve her strength and ability to walk since she can only walk ~ 1/2 block until a rest is required due to elevated pain and fatigue. Hopes to be able to walk from her room to the dining ritter during a cruise in the fall. PMH includes DM-II, HTN, and B knee and LS OA. AGGR factors: walking, standing, extended sitting, driving, carrying objects, uneven surfaces, stair climbing. ALLEV factors: rest, sitting, lying supine, heat. 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 Objectively pt displays decreased B LS and LE flexibility and ROM, gait dysfunction, imbalance, deconditioning, and B UE, LE and core weakness. Significant B (R>L) glute, quad and core muscle weakness appears to be leading to sxs with walking and in extended WBing positions. Reviewed her gym workout routine instructing her to decrease joleen and resistance for the NuStep and avoiding knee ext machine since these were likely placing elevated strain on her knees and LS. She responded well to NuStep, stretching and strengthening exercises with fatigue and decreased B knee and LS pain levels following. She will benefit from continued skilled PT intervention to address these limitations. Primary Functional Limitations Walking, standing, extended sitting, driving, carrying objects, uneven surfaces, stair climbing Plan of Care Rehabilitation Potential Good Rehabilitation Potential Comments Due to complex PSH and PMH, deconditioning, degenerative LS changes and chronic nature of sxs Physical Therapy Goals Short-term goals to be completed in 4 weeks: 1. Pt will be able to stand and walk for >10 min with LS pain <3/10 to improve sravanthi to shell coremaker and daily activities. 2. Pt will report >50% improvement in LS pain >2 consecutive workdays. Long-term goals to be completed in 10 weeks: 1. Pt will be I and compliant with her HEP for preparole counseling aide sx management. 2. Pt will display >25% improvement in B LS flex and rot AROM to safely citrus picker objects and back up a car. 3. Pt will display improved abdominal, B mid trap , low trap, hip flex, ABD and ext strength >4/5 to improve tolerance to walking and caregiving activities for her dad. 4. Pt will report >50% improvement in modified OSWESTRY questionnaire to significantly improve sravanthi to daily activities. Coordination/Communication With Referral Source Treatment Plan/Direct Interventions Joint Mobilization,Manual Therapy,Neuromuscular Re-ed, Therapeutic Exercises Frequency/Duration 1x per week for least 6-10 visits, decreasing visit frequency as able. Patient Will Be Discharged From Therapy Completion of LTG(s),Skills Plateau,Independent w/HEP, Independently Progressing Evaluation Billing Untimed Code Treatment Minutes 25 Complexity Moderate Certification Information Initial Certification Date 03/07/24 Ending Certification Date 06/05/24 Provider Signature Required Yes Provider Signature Shows Agreement With POC & Medical Necessity Physician NPI Number Write NPI# Here Physician Comment/Change : Physician Signature & Date Requested Please Sign/Date Here
== END 2024-07-19 23:59 | disposition home or self-care (01) ==
PROVIDERS: PCP Physician Assistant Medical; Visit Provider Physician Assistant Medical
DX: M54.50 Low back pain, unspecified (principal); Z74.09 Other reduced mobility; R26.89 Other abnormalities of gait and mobility; M62.89 Other specified disorders of muscle; Z51.89 Encounter for other specified aftercare
CPT/HCPCS: 97110; 97162

== ENCOUNTER 2024-04-15 13:07 | Outpatient (CLI) | payer MEDICARE, MEDICAID, SELFPAY | END 2024-04-15 13:08 | disposition home or self-care (01) | LOC: INJ CL 13:07 | PROVIDERS: PCP Physician Assistant Medical; Visit Provider Family Medicine | DX: M17.12 Unilateral primary osteoarthritis, left knee (principal); M25.562 Pain in left knee | CPT/HCPCS: 64454 ==

== ENCOUNTER 2024-04-29 13:15 | Outpatient (CLI) | payer MEDICARE, MEDICAID, SELFPAY | END 2024-04-29 13:16 | disposition home or self-care (01) | LOC: INJ CL 13:16 | PROVIDERS: PCP Physician Assistant Medical; Visit Provider Family Medicine | DX: M17.12 Unilateral primary osteoarthritis, left knee (principal); M25.562 Pain in left knee; G89.29 Other chronic pain | CPT/HCPCS: 64624; J2250; J3010 ==

== ENCOUNTER 2024-07-14 10:33 | Day surgery (SDC) | payer MEDICARE, MEDICAID, SELFPAY ==
[2024-07-14] VITALS (24 sets, daily range): BP systolic 95–174; BP diastolic 54–95; PULSE 57–72; RESP 14–20; TEMP 35.8–36.7; O2SAT 88–99; BMI 38.5
[2024-07-14] MEDS: LACTATED RINGERS 1000 ML 1,000 ML 100 ML IV (11:30)
[2024-07-14] MEDS: ACETAMINOPHEN 500 MG TABLET 1000 MG PO ×3 (11:35→22:54)
[2024-07-14] MEDS: OXYCODONE (CR) 10 MG TAB.ER.12H PO (11:35)
[2024-07-14] MEDS: MIDAZOLAM HCL 1 MG/ML inj IVP (11:55)
[2024-07-14] MEDS: fentaNYL 100 MCG/2 ML inj IVP (11:55)
--- NOTE | 2024-07-14 12:03 | SUR.PREOP ---
TIME?OUT:?left knee, @1150, Dr. Holley PT/RN/MDA?VERIFICATION?OF?SURGICAL?SITE,?PROCEDURE,?AND?CONSENT OBTAINED?PRIOR?TO?INVASIVE?PROCEDURE.
--- NOTE | 2024-07-14 12:05 | W.ANESCHARGE ---
Anesthesia Charges Start Date/Time Anesthesia Start Date: 07/14/24 Anesthesia Start Time: 12:03 Stop Date/Time Anesthesia Stop Date: 07/14/24 Anesthesia Stop Time: 13:57
--- NOTE | 2024-07-14 12:05 | W.PM.NB ---
Nerve Block Nerve Block Time Seen by Provider: 12:00 Date Seen: 07/14/24 Type of block requested by surgeon for post-operative analgesia: adductor canal Side: left Time out performed: Yes Verification of patient name: Yes Verification of date of : Yes Site marking: site marked Name of person performing procedure: Kishan Continuous monitoring Was continuous monitoring of O2 sat, B/P, children's program coordinator, recorded every 15 minutes?: Yes Procedure Checklist: sterile prep, needles and gloves Ultrasound guided. Images saved: Yes Medications given in 5ml increments after negative aspiration: Marcaine %: 0.25 mL: 15 Needle gauge: 20 Precedex (mcg): 25 Patient tolerated procedure well: Yes Block Charges Block Charge (with Pro Fee): Femoral Nerve Use of Ultrasound Machine for Block: Yes- US Guidance/pain block
--- NOTE | 2024-07-14 12:05 | W.PM.H&PU ---
History & Physical Update History & Physical Update H&P Reviewed and patient assessed: No changes noted
--- NOTE | 2024-07-14 12:05 | W.PM.NB ---
Nerve Block Nerve Block Time Seen by Provider: 12:00 Date Seen: 07/14/24 Type of block requested by surgeon for post-operative analgesia: geniculars Time out performed: Yes Verification of patient name: Yes Verification of date of : Yes Site marking: site marked Name of person performing procedure: Kishan Continuous monitoring Was continuous monitoring of O2 sat, B/P, shelter monitor, recorded every 15 minutes?: Yes Procedure Checklist: sterile prep, needles and gloves Ultrasound guided. Images saved: Yes Medications given in 5ml increments after negative aspiration: Marcaine %: 0.25 mL: 9 Needle gauge: 25 Patient tolerated procedure well: Yes Block Charges Block Charge (with Pro Fee): Genicular Nerve Block
--- NOTE | 2024-07-14 12:06 | CRLHL7_ITS ---
For Patients: As a result of the Cures Act, medical imaging exams and procedure reports are released immediately into your electronic medical record. You may view this report before your referring provider. If you have questions, please contact your health care provider. Indication: Postop Technique: Two views left knee Findings/Impression: Hardware from a left total knee arthroplasty is in satisfactory position. Bone alignment is normal. No sign of acute fracture. Postop changes are within normal limits. Dictated by Geraldo Tellez MD @ 07/15/2024 9:00:34 AM (Electronically Signed)
[2024-07-14] MEDS: CEFAZOLIN 2 GM in 0.9 % SODIUM CHLORIDE Mini-bag 100 ML IVPB ×2 (12:15→19:15)
[2024-07-14] MEDS: TRANEXAMIC ACID 100 MG/ML INJ 1000 MG IV (12:21)
--- NOTE | 2024-07-14 13:31 | P.ORPRC_ITS ---
Procedure Note Date of procedure: 07/14/24 Procedure: PREOPERATIVE DIAGNOSIS: 1. Left knee osteoarthritis, primary, severe POSTOPERATIVE DIAGNOSIS: 1. Left knee osteoarthritis, primary, severe PROCEDURE: 1. Left total knee arthroplasty - subvastus SURGEON: Rodrigo Campbell MD. BLOCKER AND POLISHER: DENTON David - Of note, a skilled media center assistant was critical for this case to aid in patient positioning, tissue retraction, limb manipulation/positioning, and closure. ANESTHESIA: Spinal anesthetic EBL: 50ml IMPLANTS: DePuy J&J all cemented TKA - Attune PS femur size 5 Standard, size 5 tibia, 5mm poly spacer, 38mm patella TOURNIQUET: 90 min at 300 torr COMPLICATIONS: None evident INDICATIONS: The patient is a pleasant 63-year-old female who has experienced severe left knee pain and difficulty bearing weight. Workup included x-rays which revealed severe osteoarthrosis in the knee. Given the deformity, the dysfunction, and the pain, as well as the failure of nonoperative management, recommendation was made for surgery. FINDINGS: full-thickness chondral loss diffusely throughout the medial and patellofemoral compartments. To a lesser degree lateral compartment. Degenerative meniscus pathology medial greater than lateral. Large effusion upon entering the joint. DESCRIPTION OF PROCEDURE: Following a thorough discussion of risks, benefits, and alternatives consent was obtained and the left knee was marked. The patient was brought to the operating room and placed supine on the operating table. Induction of anesthesia was undertaken. 2 g IV Ancef and 1 g tranexamic acid was administered within 1 hr of incision preoperatively. Proper time-out was performed identifying proper patient, site, procedure. The operative extremity was prepped and draped in the appropriate sterile fashion using ChloraPrep after the patient was positioned supine with all bony prominences well padded. A longitudinal, anterior, midline skin incision was made starting approximately 3cm proximal to the superior pole of the patella and advanced distal to the tibial tubercle. A subvastus approach was utilized. A medial subperiosteal sleeve was created with knife, young elevator and curved osteotome. The retropatellar fatpad was resected and the synovium in the suprapatellar pouch excised to visualize the anterior femoral cortex. Femoral preparation was performed via an intramedullary guide. Step drill allow ed access into the femoral canal. The distal cutting guide was placed with 5? of valgus and 10 mm cut on the distal femur. Femur was sized using a anterior referencing guide in 3? of external rotation. This found have a best fit with the sizing noted above. The 4 in 1 cutting block was then placed, and the distal femur shaped accordingly. The box cut was then created and the trial implant inserted to confirm appropriate fit. We turned our attention to the proximal tibia. Extramedullary guide was utilized for cutting with the goal of being 90 degree cut from the mechanical axis of the tibia in the varus/valgus plane utilizing tibial crest as the primary alignment. Initially a 2 mm resection was performed from the medial tibial plateau. Ultimately, balancing was achieved in both flexion and extension in both varus and valgus. The knee was able to achieve full extension as well comfortably. The patella was initially measured and found have a thickness of 22 mm. It was resected back to approximately 14 mm. It was sized to be a best fit with as noted above. This was drilled, trial placed. All trials were placed and found to have an excellent stability and balance. At this stage, trial implants were removed, the knee was thoroughly irrigated with normal saline, and the cement was mixed. After irrigation, the knee was thoroughly dried, and cement placed, with the real tibial and femoral implants placed along with the patella. Trial poly spacer was placed and confirmed to have excellent range of motion and full extension, and the real poly spacer opened and inserted. All extra cement was removed, and a 3 min Betadine soak performed. Finally, a final irrigation round with normal saline was performed. Closure performed with 0 PDS and #0 Stratafix for the quad tendon/retinaculum. 2-0 Vicryl/Stratafix for the subcutaneous and 4-0 Monocryl for subcuticular closure. Dressings were applied and the patient was awoken from anesthesia after the tourniquet deflated and transferred the PACU in stable condition. A skilled media center assistant was critical for this case to aid in patient positioning, tissue retraction, bone exposure, limb manipulation/positioning, patient safety, and closure. PLAN: 1. Weight bear as tolerated operative extremity. 2. 23 hr perioperative antibiotics. 3. Ice. 4. PT/OT consults for ambulation assistance/mobility education. 5. Social work consult for discharge planning. 6. DVT prophylaxis with at SCDs and aspirin twice daily.
--- NOTE | 2024-07-14 13:53 | W.ANESCHARGE ---
Anesthesia Charges Start Date/Time Anesthesia Start Date: 07/14/24 Anesthesia Start Time: 12:03 Stop Date/Time Anesthesia Stop Date: 07/14/24 Anesthesia Stop Time: 13:57
--- NOTE | 2024-07-14 14:19 | SUR.PHASEI ---
Patient came to PACU awake, no pain or nausea, not able to wiggle toes, and says they are tingling.
--- NOTE | 2024-07-14 14:26 | SUR.PHASEI ---
Patient meets discharge criteria from PACU. Awake, taking ice chips, and comfortable.
[2024-07-14] MEDS: LACTATED RINGERS 1000 ML 1,000 ML 75 ML IV (15:35)
--- NOTE | 2024-07-14 16:39 | P.IMCN_ITS ---
Date of Consult Patient: 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 Campbell today for severe osteoarthritis. She is doing well after surgery. She states her pain is just starting to ramp up and she is planning on taking her first pain pill at 5pm. She denies CP, SOB, nausea. I encouraged her to eat before getting her pain pill. Review of Systems Status of ROS: Reports: 6 or more systems reviewed and unremarkable except as noted in History and below [facility] Medical History (Updated 07/14/24 @ 20:00 by Nicole Adan MD) Depression ?F32.A - Depression, unspecified (ICD-10) Neuropathy ?G62.9 - Polyneuropathy, unspecified (ICD-10) CKD (chronic kidney disease) ?N18.9 - Chronic kidney disease, unspecified (ICD-10) Hypertension ?I10 - Essential (primary) hypertension (ICD-10) Hyperlipidemia ?E78.5 - Hyperlipidemia, unspecified (ICD-10) Obesity ?E66.9 - Obesity, unspecified (ICD-10) Injury of left toe ?S99.922A - Unspecified injury of left foot, initial encounter (ICD-10) Elevated ferritin level (~09/24/23) ?R79.89 - Other specified abnormal findings of blood chemistry (ICD-10) Microalbuminuria ?R80.9 - Proteinuria, unspecified (ICD-10) Former smoker ?Z87.891 - Personal history of nicotine dependence (ICD-10) Osteoporosis ?M81.0 - Age-related osteoporosis without current pathological fracture (ICD- 10) Type 2 diabetes mellitus ?E11.9 - Type 2 diabetes mellitus without complications (ICD-10) Immunodeficiency ?D84.9 - Immunodeficiency, unspecified (ICD-10) Hyperparathyroidism, secondary renal ?N25.81 - Secondary hyperparathyroidism of renal origin (ICD-10) Premature atrial complexes ?I49.1 - Atrial premature depolarization (ICD-10) Hypertensive urgency ?I16.0 - Hypertensive urgency (ICD-10) History of thrombocytopenia ?Z86.2 - Personal history of diseases of the blood and blood-forming organs and certain disorders involving the immune mechanism (ICD-10) History of end stage renal disease ?Z87.448 - Personal history of other diseases of urinary system (ICD-10) Trigger thumb of right hand ?M65.311 - Trigger thumb, right thumb (ICD-10) Elevated brain natriuretic peptide (BNP) level ?R79.89 - Other specified abnormal findings of blood chemistry (ICD-10) Thrombosed external hemorrhoid ?K64.5 - Perianal venous thrombosis (ICD-10) 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 ?Z79.01 - motorboat mechanic 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/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 (current) use of anticoagulants (ICD-10) Kidney transplant as cause of abnormal reaction or later complication (~03/2022) ?T86.10 - Unspecified complication of kidney transplant (ICD-10) Surgical History (Updated 07/14/24 @ 16:45 by Nicole Adan MD) Status post kidney transplant (~03/2022) ?Z94.0 - Kidney transplant status (ICD-10) Status post total right knee replacement (07/14/24) ?Z96.651 - Presence of right artificial knee joint (ICD-10) History of total left knee replacement (07/14/24) ?Z96.652 - Presence of left artificial knee joint (ICD-10) History of kidney transplant (2007) ?Z94.0 - Kidney transplant status (ICD-10) History of hysterectomy for benign disease (2001) ?Z90.710 - Acquired absence of both cervix and uterus (ICD-10) H/O hernia repair ?Z98.890 - Other specified postprocedural states (ICD-10) ?Z87.19 - Personal history of other diseases of the digestive system (ICD-10) H/O total hysterectomy ?Z90.710 - Acquired absence of both cervix and uterus (ICD-10) Family History Sister COPD (chronic obstructive pulmonary disease) Social History (Updated 07/14/24 @ 19:28 by Nicole Adan MD) Narrative: Denies tobacco, alcohol or recreational drug use. What is your current living situation?: I presently have a place to live Problems where you live: no known problems In the past 12 months, utilities in danger of being shut off: no In the past 12 mos, have been you worried that your food would run out before you had money to buy more?: never true In the past 12 mos, the food you bought just didn't last and you didn't have money to buy more?: never true Smoking Status: Former smoker What tobacco products do you use: cigarettes S moking quit date/years: <= 15 years ago Do you use any of these nicotine containing products: None Second hand tobacco smoke exposure: No How often do you have a drink containing alcohol: monthly or less How often do you have six or more drinks on one occasion: Never AUDIT-C Alcohol total score: 1 Non-prescribed substance use: denies use How often does anyone, including family, friends and others, physically hurt you : never How often does anyone, including family, friends and others, insult or talk down to you: never How often does anyone, including family, friends and others, threaten you with harm: never How often does anyone, including family, friends and others, scream or curse at you: never Meds Home Medications and Allergies Home Medications ?Medication ?Instructions ?Recorded ?Confirmed ?Type acyclovir 5 % topical ointment 1 applic topical 6XD PRN 04/28/22 07/14/24 History acetaminophen 325 mg tablet 650 mg PO Q6H PRN 05/03/22 07/10/24 History hydrocortisone 2.5 % topical cream 1 applic topical QDAY PRN 05/03/22 07/14/24 History multivitamin 1 tab PO QDAY 05/03/22 07/14/24 History mycophenolate mofetil 250 mg 750 mg PO Q12H 05/03/22 07/14/24 History capsule prednisone 5 mg tablet 5 mg PO DAILY 05/03/22 07/14/24 History carvedilol 25 mg tablet 25 mg PO BID 04/02/23 07/14/24 History tacrolimus 1 mg capsule, See Rx Instructions PO Q12H 03/05/24 07/14/24 History immediate-release rosuvastatin 5 mg tablet 5 mg PO HS 03/19/24 07/14/24 History Allergies Allergy/AdvReac Type Severity Reaction Status Date / Time epoetin natalia Allergy Mild Vomiting Verified 07/14/24 10:46 latex Allergy Mild Verified 07/14/24 10:46 Exam Narrative: Exam Narrative: General: No acute distress. Awake alert oriented x3. HEENT: Normocephalic atraumatic, pupils equally round and reactive to light and accommodation. Oropharynx clear. Mucous membranes are moist. No cervical lymphadenopathy, thyromegaly or carotid bruits. No JVD. Cardiovascular: Regular rate and rhythm. No murmurs, gallops, or rubs. Chest: No increased work of breathing. Clear to auscultation bilaterally. No crackles or wheezes. Abdomen: Bowel sounds present. Soft, nondistended, nontender. No hepatos plenomegaly or masses. Extremities: Right knee bandage is clean, dry, and intact. No edema, no cyanosis or clubbing. Skin: No jaundice, no pallor, no rashes. Const: Vital Signs, click to edit/add: Vital Signs - 24 hr 07/14/24 11:20 07/14/24 11:55 07/14/24 12:00 Temperature 97.5 F L Pulse Rate 72 65 66 Respiratory Rate 20 20 20 Blood Pressure 152/85 H 174/95 H 146/84 H Pulse Oximetry 95 97 97 Oxygen Delivery Me thod Room Air Nasal Cannula Nasal Cannula Oxygen Flow Rate 3 3 07/14/24 13:53 07/14/24 13:55 07/14/24 14:00 Temperature 97.8 F Pulse Rate 61 61 61 Respiratory Rate 14 16 14 Blood Pressure 106/59 L 104/54 L 104/54 L Pulse Oximetry 93 94 91 Oxygen Delivery Me thod Room Air Room Air Room Air Oxygen Flow Rate 07/14/24 14:05 07/14/24 14:10 07/14/24 14:15 Temperature Pulse Rate 57 L 59 L 58 L Respiratory Rate 14 16 20 Blood Pressure 99/61 108/63 109/71 Pulse Oximetry 95 94 95 Oxygen Delivery Me thod Room Air Room Air Room Air Oxygen Flow Rate 07/14/24 14:20 07/14/24 14:25 07/14/24 14:30 Temperature 97.6 F 96.9 F L Pulse Rate 62 60 58 L Respiratory Rate 20 20 16 Blood Pressure 111/65 109/73 115/66 Pulse Oximetry 93 93 94 Oxygen Delivery Me thod Room Air Room Air Room Air Oxygen Flow Rate 07/14/24 14:30 07/14/24 14:45 07/14/24 15:00 Temperature 96.9 F L 96.8 F L Pulse Rate 58 L 59 L Respiratory Rate 16 16 Blood Pressure 115/66 107/65 Pulse Oximetry 94 99 95 Oxygen Delivery Me thod Room Air Room Air Oxygen Flow Rate 07/14/24 15:00 07/14/24 15:00 07/14/24 15:15 Temperature 96.6 F L Pulse Rate 58 L 58 L Respiratory Rate 16 16 Blood Pressure 107/60 112/64 Pulse Oximetry 90 94 88 Oxygen Delivery Me thod Room Air Room Air Room Air Oxygen Flow Rate 07/14/24 15:30 07/14/24 15:30 07/14/24 16:06 Temperature 96.9 F L Pulse Rate 60 60 Respiratory Rate 16 16 Blood Pressure 121/65 129/69 Pulse Oximetry 96 92 95 Oxygen Delivery Me thod Nasal Cannula Room Air Nasal Cannula Oxygen Flow Rate 1.5 2 Assessment and Plan Assessment and plan (1) Status post total right knee replacement: Problem comment: - 07/14/24 Dr. Campbell - routine post op cares - VTE prophylaxis with BID low dose aspirin Status: Acute (2) Osteoarthritis of right knee: Problem comment: severe Status: Chronic (3) Status post kidney transplant: Problem comment: 2007; 04/06/2022 [facility] B Dr. 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 Status: Acute (6) CKD (chronic kidney disease): Problem comment: Stage 3b [id number] Ozempic. Follows with Dr. Martínez and the [facility] 02/11/2024- cr 1.35 ( reports on phone) Status: Chronic (7) Hyperparathyroidism, secondary renal: Problem comment: Follows with Nephrology-[facility] Status: Chronic (8) Type 2 diabetes mellitus: Problem comment: 09/24/2023 A1c 6.0% - missed last weeks ozempic dose. Will start ISS ACHS for while in hospital only. Status: Chronic (9) Hypertension: Problem comment: - BP soft. Hold nifedipine. Status: Chronic (10) Neuropathy: Problem comment: - [id number] A1c 6.0%; normal B12; started gabapentin - 07/14/24 continue gabapentin Status: Chronic (11) Hyperlipidemia: Problem comment: - continue rosuvastatin Status: Chronic
[2024-07-14] MEDS: OXYCODONE 5 MG TABLET PO ×3 (17:07→22:54)
--- NOTE | 2024-07-14 18:54 | PC.NURSE ---
End of shift [id number]: Pt arrived from PACU @ 1430. She?s been A&O, afebrile and VSS. Left anterior knee dressing is C/D/I with active ice in place. CMS returned to baseline, pedal pulses intact. Pt required 1-2L NC while asleep during the immediate recovery period but has been on RA while awake. Pain got as high a 9/10 but PRN oxycodone brought down to 3/10; last given @ 1705. Pt is diabetic; post-op blood sugar was 124. Sliding scale held with dinner. No urge to void yet. Right arm restriction d/t right upper fistula with h/o dialysis. PIV in left FA infiltrated- noted at 1845. House Sup notified since pt is a difficult stick and restricted right arm. Her plan is to discharge home tomorrow as long as she?s medically stable. ?
[2024-07-14] MEDS: HYDROCORTISONE SOD SUCCINATE 50 MG/ML inj 25 MG IVP (20:29)
[2024-07-14] MEDS: ASPIRIN 81 MG TABLET EC PO (20:30)
[2024-07-14] MEDS: GABAPENTIN 100 MG CAPSULE 200 MG PO (20:31)
[2024-07-14] MEDS: SENNOSIDES 1 TAB TABLET 2 TAB PO (20:31)
[2024-07-14] MEDS: TACROLIMUS 0.5 MG CAPSULE 1.5 MG PO (20:32)
[2024-07-14] MEDS: ROSUVASTATIN CALCIUM 10 MG TABLET 5 MG PO (20:33)
[2024-07-14] MEDS: mycophenolate mofetiL 250 MG CAPSULE 500 MG PO (20:35)
[2024-07-14] MEDS: carvediloL 25 MG TABLET PO (20:40)
[2024-07-15] MEDS: CEFAZOLIN 2 GM in 0.9 % SODIUM CHLORIDE Mini-bag 100 ML IVPB (02:30)
[2024-07-15 02:37] VITALS: BP 151/90; PULSE 67; RESP 16; TEMP 36.1; O2SAT 96
[2024-07-15] MEDS: OXYCODONE 5 MG TABLET PO ×3 (03:10→08:07)
[2024-07-15] MEDS: HYDROCORTISONE SOD SUCCINATE 50 MG/ML inj 25 MG IVP (03:16)
[2024-07-15] MEDS: ACETAMINOPHEN 500 MG TABLET 1000 MG PO (05:25)
--- NOTE | 2024-07-15 06:31 | PC.NURSE ---
End of shift note [id number]: Pt alert & oriented x 4 and able to make needs known. Dressing to anterior L knee noted to be C/D/I. CMS to LLE intact though pt does report she has neuropathy at baseline. PRN Oxycodone utilized for pain control along with rest, repositioning, ice and giving scheduled Tylenol. Pt had two episodes of severe pain reported this shift and was therefore given 10 mg Oxycodone per order. Pt continent of bladder. She is transferring/ambulating with assist of 1 using FWW and GB. Pt has been afebrile and on RA throughout the shift. Blood glucose of 137 last evening. No c/o CP or shortness of breath. Fistula in place to R arm with positive bruit. Call light within reach. Pt has been using call light appropriately.
[2024-07-15 06:35] LABS: Basophils Absolute Auto 0.01 K/uL (0.00-0.30); Basophils Percent Auto 0.1 % (0.0-3.0); Eosinophils Absolute Auto 0.03 K/uL (0.00-0.50); Eosinophils Percent Auto 0.4 % (0.0-7.0); Hematocrit 39.8 % (33.0-51.0); Hemoglobin* 12.8 gm/dL (12.0-16.0); Immature Granulocytes Abs Auto 0.01 K/uL (0.00-0.30); Immature Granulocytes Pct Auto 0.1 %; Lymphocytes Percent Auto 7.8 % (20-44); Mean Corpuscular HGB Conc 32 gm/dL (32-36); Mean Corpuscular Hemoglobin 29 pg (26-34); Mean Corpuscular Volume 89 fL (80-100); Monocytes Percent Auto 10.4 % (0.0-11.0); Neutrophils Percent Auto 81.2 % (42.0-72.0); Platelet Count* 122 K/uL (140-440); Red Blood Count 4.46 m/uL (4.00-5.20); White Blood Count* 8.19 K/uL (4.50-11.00)
[2024-07-15 06:36] LABS: Slide Review Reflex No
[2024-07-15 06:46] LABS: Sodium* 139 mmol/L (135-149)
[2024-07-15 06:47] LABS: Potassium* 3.5 mmol/L (3.6-5.1)
[2024-07-15 06:49] LABS: Creatinine* 1.5 mg/dL (0.5-1.5); Est. Creatinine Clearance* 32.72; Estimated Glomerular Filt Rate 39 ml/min
[2024-07-15 06:50] LABS: Blood Urea Nitrogen* 23 mg/dL (7-30)
[2024-07-15 07:00] VITALS: BP 155/90; PULSE 67; RESP 18; TEMP 36.4; O2SAT 96
[2024-07-15] MEDS: ASPIRIN 81 MG TABLET EC PO (08:06)
[2024-07-15] MEDS: SENNOSIDES 1 TAB TABLET 2 TAB PO (08:06)
[2024-07-15] MEDS: predniSONE 5 MG TABLET PO (08:06)
[2024-07-15] MEDS: GABAPENTIN 100 MG CAPSULE 200 MG PO (08:06)
[2024-07-15] MEDS: carvediloL 25 MG TABLET PO (08:06)
[2024-07-15] MEDS: NIFEdipine 30 MG TAB.ER.24 PO (08:06)
[2024-07-15] MEDS: POTASSIUM CHLORIDE 10 MEQ CAPSULE ER 20 MEQ PO (08:07)
[2024-07-15] MEDS: TACROLIMUS 0.5 MG CAPSULE 1 MG PO (08:08)
[2024-07-15] MEDS: mycophenolate mofetiL 250 MG CAPSULE 500 MG PO (09:11)
--- NOTE | 2024-07-15 12:10 | PC.NURSE ---
Discharge: The patient discharged home with her father this AM. Wheeled off the unit with all of her belongings and discharge instructions. All questions were answered. S/S of infection were reviewed as well as other care post knee replacement. Giulia GUILLEN BSN
--- NOTE | 2024-07-15 16:23 | P.ORPN_ITS ---
Subjective Subjective Date Seen: 07/15/24 Principal diagnosis: Status postop day 1 left total knee arthroplasty Interval history: Patient reports doing well. Difficult pain management overnight, but not better managed with scheduled and PRN medications, ice. DVT prophylaxis: 81 mg aspirin by mouth twice daily, SCDs, walking. Denies fevers, chills, aches, N/V, CP, SOB/THOMPSON, or lightheadedness. Ortho Exam Narrative Exam Narrative: -Patient appears comfortable; no apparent acute distress -Alert and oriented times 3 -Operative knee mildly swollen; soft tissues supple; no ecchymosis; no erythematous streaking Warmth appropriate -Surgical dressing clean, dry, intact; no drainage -Bilateral calfs soft; no significant swelling, edema, tenderness, erythema, discoloration, warmth, or palpable cords -2+ DP/PT pulses, intact dermatomes and myotomes distally (5/5 strength) Const Vital Signs, click to edit/add: Vital Signs - 24 hr 07/14/24 16:44 07/14/24 17:30 07/14/24 18:40 Temperature 96.5 F L 96.5 F L 96.9 F L Pulse Rate 63 60 65 Pulse Rate [Right Pulse Oximeter] Respiratory Rate 16 16 16 Blood Pressure 133/82 135/81 125/67 Blood Pressure [Left Arm] Pulse Oximetry 96 97 95 Oxygen Delivery Method Room Air Room Air Room Air 07/14/24 19:35 07/14/24 20:38 07/14/24 23:00 Temperature 97.4 F L 96.6 F L Pulse Rate 64 72 Pulse Rate [Right Pulse Oximeter] Respiratory Rate 16 16 Blood Pressure 95/60 116/89 Blood Pressure [Left Arm] Pulse Oximetry 93 96 92 Oxygen Delivery Method Room Air Room Air 07/14/24 23:00 07/14/24 23:00 07/14/24 23:01 Temperature 98.0 F Pulse Rate Pulse Rate [Right Pulse Oximeter] 65 Respiratory Rate 16 16 16 Blood Pressure Blood Pressure [Left Arm] 149/77 H Pulse Oximetry 92 92 Oxygen Delivery Method Room Air Room Air 07/15/24 02:37 07/15/24 07:00 07/15/24 07:00 Temperature 97.0 F L 97.5 F L Pulse Rate Pulse Rate [Right Pulse Oximeter] 67 67 Respiratory Rate 16 18 18 Blood Pressure Blood Pressure [Left Arm] 151/90 H 155/90 H Pulse Oximetry 96 96 96 Oxygen Delivery Method Room Air Room Air Room Air Assessment and Plan Assessment and plan (1) Status post total right knee replacement: Problem details: - 07/14/24 Dr. Campbell - routine post op cares - VTE prophylaxis with BID low dose aspirin Status: Deleted (2) Osteoarthritis of right knee: Problem details: severe Status: Chronic (3) Status post kidney transplant: Problem details: 2007; 04/06/2022 [facility] Transplant Team B Dr. 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 Status: Acute (6) CKD (chronic kidney disease): Problem details: Stage 3b [id number] Ozempic. Follows with Dr. Martínez and the [facility] Transplant Team 02/11/2024- cr 1.35 ( reports on phone) Status: Chronic (7) Hyperparathyroidism, secondary renal: Problem details: Follows with Nephrology-[facility] Status: Chronic (8) Type 2 diabetes mellitus: Problem details: 09/24/2023 A1c 6.0% - missed last weeks ozempic dose. Will start ISS ACHS for while in hospital only. Status: Chronic (9) Hypertension: Problem details: - BP soft. Hold nifedipine. Status: Chronic (10) Neuropathy: Problem details: - [id number] A1c 6.0%; normal B12; started gabapentin - 07/14/24 continue gabapentin Status: Chronic (11) Hyperlipidemia: Problem details: - continue rosuvastatin Status: Chronic Plan - Complete 23 hour perioperative antibiotics. - PT/OT consult for education and assistance. - Social work consult for discharge planning - Prescribed analgesics as needed - DVT prophylaxis: 81 mg aspirin by mouth twice daily, walking, and SCDs - Anticipation is for discharge to home with family/friends today 07/15/2024 if the patient remains medically stable, pain is controlled, and they are safe with mobilization.
== END 2024-07-15 11:40 | disposition home or self-care (01) ==
LOC: OR 10:34 → MEDSURG 10:39
PROVIDERS: PCP Physician Assistant Medical; Visit Provider Orthopaedic Surgery Sports Medicine
PROC: (CPT 27447; principal; 2024-07-14 12:30)
DX: M17.12 Unilateral primary osteoarthritis, left knee (principal); G89.18 Other acute postprocedural pain; I12.9 Hypertensive chronic kidney disease with stage 1 through stage 4 chronic kidney disease, or unspecified chronic kidney disease; E11.22 Type 2 diabetes mellitus with diabetic chronic kidney disease; N18.32 Chronic kidney disease, stage 3b; E11.40 Type 2 diabetes mellitus with diabetic neuropathy, unspecified; Z94.0 Kidney transplant status; D84.81 Immunodeficiency due to conditions classified elsewhere; N25.81 Secondary hyperparathyroidism of renal origin; Z79.85 Long-term (current) use of injectable non-insulin antidiabetic drugs; E78.5 Hyperlipidemia, unspecified; E66.9 Obesity, unspecified; Z68.38 Body mass index [BMI] 38.0-38.9, adult
CPT/HCPCS: 27447; 01402; 36415; 64447; 64454; 73560; 76942; 82565; 82962; 84132; 84295; 84520; 85025; 97110; 97116; 97161; 97165; 97530; 97535; A9270; C1776; J0665; J0690; J1720; J2250; J2405; J2704; J3010; J3490; J7120; J7507; J7512

== ENCOUNTER 2024-09-01 10:45 | Outpatient (RCR) | payer MEDICARE, MEDICAID, SELFPAY ==
--- NOTE | 2024-08-12 09:24 | PT.OPDN ---
PT [place] [facility] Daily Note PT [facility] Out[facility] Daily Note Start: 07/10/24 15:40 Freq: Status: Active Protocol: Document 08/12/24 08:34 KATJAT (Rec: 08/12/24 09:23 CJT [id number]) E-signed By Mario Rodriguez, PT PT OP Daily Progress Note Visit Information Note Type Recert/Progress Note Visit Number 10 Physician Authorized Visits eval and treat Insurance Information Recert Due Date 10/09/24 Insurance Name Medicare B,Medicaid Medical Diagnosis L TKA Treating Diagnosis L TKA Referring MD Campbell Subjective Preferred Name Shabnam Teague Pt doing well. Notes improved soreness following last session. Still struggling to sleep at night. Pain Comments 01/27 Date of Surgery (If applicable) 07/14/24 Precautions Treatment Precautions/Contraindications Immunodeficiency (Acute) cellcept, tacrolimus, and prednisone D84.9 - Immunodeficiency, unspecified (ICD-10) Hyperparathyroidism, secondary renal (Acute) Follows with Nephrology-[facility] N25.81 - Secondary hyperparathyroidism of renal origin (ICD-10) Type 2 diabetes mellitus ( Acute) 09/24/2023 A1c 6.0% E11.9 - Type 2 diabetes mellitus without complications (ICD-10) Osteoporosis (Acute) M81.0 - Age-related osteoporosis without current pathological fracture (ICD-10) Former smoker (Acute) QUIT 2019 Z87.891 - Personal history of nicotine dependence (ICD-10) Low back pain (Acute) M54.50 - Low back pain, unspecified (ICD-10) Microalbuminuria (Acute) 12/2023- ratio 103 R80.9 - Proteinuria, unspecified (ICD-10) Elevated ferritin level (Acute ~09/24/23) R79.89 - Other specified abnormal findings of blood chemistry (ICD-10) Chapped lips (Acute) K13.0 - Diseases of lips (ICD- 10) Numbness and tingling in both hands (Acute ~08/2023) R20.0 - Anesthesia of skin ( ICD-10) R20.2 - Paresthesia of skin ( ICD-10) Injury of left toe (Acute) 08/2023- injury; neuropathy sent in cephalexin to cover for cellulitis S99.922A - Unspecified injury of left foot, initial encounter (ICD-10) Obesity (Acute) [id number] 227 lb ( started Ozempic 07/02/2023) 09/24/2023- weight is 221lbs E66.9 - Obesity, unspecified ( ICD-10) Hyperlipidemia (Acute) E78.5 - Hyperlipidemia, unspecified (ICD-10) Hypertension (Acute) I10 - Essential (primary) hypertension (ICD-10) Osteoarthritis of right knee ( Chronic ~06/28/23) Moderate M17.11 - Unilateral primary osteoarthritis, right knee ( ICD-10) Neuropathy (Acute) [id number] A1c 6.0%; normal B12; start gabapentin G62.9 - Polyneuropathy, unspecified (ICD-10) CKD (chronic kidney disease) ( Acute) [id number] Ozempic. Follows with Dr. Martínez and the [facility] Transplant Team 02/11/2024- cr 1.35 ( reports on phone) N18.9 - Chronic kidney disease , unspecified (ICD-10) Depression (Acute) F32.A - Depression, unspecified (ICD-10) Status post kidney transplant (Acute ~03/2022) 2007; 04/06/2022 [facility] Transplant Team B Dr. 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): [phone]- ask for kidney/pancreas on-call physician [facility]- [phone] Z94.0 - Kidney transplant status (ICD-10) Osteoarthritis of left knee ( Chronic) Severe M17.12 - Unilateral primary osteoarthritis, left knee (ICD -10) Home Exercise Home Exercise Comments [id number] Objective Other/Pertinent Objective R/L Knee AROM: 0-2-123 Patient Instructed in Risks/Benefits Yes Therapeutic Exercise Therapeutic Exercise Minutes (minutes) 30 Therapeutic Exercise: To Restore NuStep - 10 minutes, level 5 Functional Status Leg Press, seat 10, 40# 2 x 10 , 50# x 10 Hamstring curl machine, 30# 3 x 8 Knee extension machine, 20# 3 x 8 Gastroc stretch on slant board x 60 2 step-overs w/ dowel x 10 ea 2 step-overs w/ hand on counter x 10 ea Manual Therapy Techniques Manual Therapy Minutes (minutes) 15 Manual Therapy Techniques Gentle STM to L quad, hamstring, adductor bundle, gastroc, posterior knee to reduce tissue tension. MFR to anterior L knee and surgical incision to diminish adhesions and improve tissue extensibility. Grade II-III ML mobilizations to L patella to facilitate motion Other Interventions Provided Other Modalities Provided Vasopneumatic: GameReady, L knee, low pressure, pt in supine with legs elevated, 10 minutes Other Modalities Untimed Minutes 10 Treatment Minutes Untimed Code Treatment Minutes 10 Timed Code Treatment Minutes 45 Total Treatment Time 55 Billing Units Manual Therapy Units 1 Therapeutic Exercise Units 2 Vasopneumatic Device Units 1 Assessment/Impression Assessment/Impression Pt has progressed very well during her time in PT thus far . She is consistently demonstrating full L knee AROM but continues to present with strength and balance deficits . Our efforts in therapy will continue to focus on these deficits so that she is ready for her cruise atthe end of August. I have no concerns for Shabnam at this time. Recommend continued PT services to address deficits and return pt to highest level of function. Plan of Care Physical Therapy Goals STG - To be completed in 2-3 weeks: 1. Pt will report consistent use of ice as well as elevation of surgical limb while resting to reduce inflammation and swelling.MET 2. Pt will demonstrate 90 degrees of knee flexion on surgical limb to reduce risk of contracture development and progress through rehabilitation as expected. MET 3. Pt to show appropriate use of all AD's with minimal gait deviations and no LOB with all ambulation to reduce risk of falls and restore normal gait mechanics. MET 4. Pt will demo full knee extension to reduce risk of contracture in posterior knee and allow for ease of ambulation. MET LTG - To be completed in 8-12 weeks: 1. Pt to be I with HEP so that they may I manage progression of symptoms. 2. Pt will demonstrate 120 degrees knee flexion on surgical limb so that they may descend steps without restrictions in ROM. 3. Pt will perform 10+ squats of full depth with good control over medial/lateral deviation of knees to show improved functional strength to assist with transfers. 4. Pt will demonstrate 5/5 MMT knee flexion/extension of surgical limb to provide greater support to knee joint and allow for ease of ambulation. 5. Pt will ambulate with no AD and minimal gait deviations so that they may return to walking safely and comfortably for exercise and pleasure. Daily Plan of Care Continue per POC
== END 2024-12-17 07:31 | disposition home or self-care (01) ==
PROVIDERS: PCP Physician Assistant Medical; Visit Provider Orthopaedic Surgery Sports Medicine
DX: M17.12 Unilateral primary osteoarthritis, left knee (principal); Z96.652 Presence of left artificial knee joint; Z51.89 Encounter for other specified aftercare
CPT/HCPCS: 97016; 97110; 97140; 97161; 97164

== ENCOUNTER 2024-10-27 13:41 | Outpatient (CLI) | payer MEDICARE, MEDICAID, SELFPAY | END 2024-10-27 13:42 | disposition home or self-care (01) | LOC: CT 13:44 | PROVIDERS: PCP Physician Assistant Medical; Visit Provider Physician Assistant Medical | DX: R91.8 Other nonspecific abnormal finding of lung field (principal); I25.10 Atherosclerotic heart disease of native coronary artery without angina pectoris; I31.39 Other pericardial effusion (noninflammatory); R93.89 Abnormal findings on diagnostic imaging of other specified body structures | CPT/HCPCS: 71250 ==

== ENCOUNTER 2025-06-15 08:10 | Outpatient (CLI) | payer MEDICARE, MEDICAID, SELFPAY | END 2025-06-15 08:11 | disposition home or self-care (01) | LOC: NFLDREF 06-16 18:00 | PROVIDERS: PCP Physician Assistant Medical; Referring Provider Physician Assistant Medical; Visit Provider Physician Assistant Medical | DX: Z00.00 Encounter for general adult medical examination without abnormal findings (principal); E11.22 Type 2 diabetes mellitus with diabetic chronic kidney disease; N18.9 Chronic kidney disease, unspecified | CPT/HCPCS: 80053; 80061; 82043; 82570; 82728; 84443; 87086 ==

== ENCOUNTER 2025-07-20 12:37 | Outpatient (CLI) | payer MEDICARE, MEDICAID, SELFPAY | END 2025-07-20 12:38 | disposition home or self-care (01) | LOC: US 12:39 | PROVIDERS: PCP Physician Assistant Medical; Visit Provider Physician Assistant Medical | DX: R09.89 Other specified symptoms and signs involving the circulatory and respiratory systems (principal); M25.562 Pain in left knee | CPT/HCPCS: 93922 ==